=== PATIENT | female | born 1980 | race Caucasian/White ===

== ENCOUNTER 2017-12-24 21:30 | Emergency (ER) | payer MEDICAID ==
[2017-12-24 22:50] LABS: Absolute Lymphocytes (CBC) 2.3 K/uL (0.7-4.9); Absolute Monocytes 0.5 K/uL (0.1-1.3); Absolute Neutrophil 5.8 K/uL (1.8-8.0); Basophils % 0.5 % (0-1.3); Eosinophils % 1.3 % (0-4.4); Hematocrit 43.9 % (36.0-45.0); Lymphocytes % 25.8 % (15.3-44.8); MCH 27.8 pg (27.0-35.0); RBC Red Blood Cell Count 5.28 M/uL (3.86-4.86)
[2017-12-24 23:03] LABS: Albumin 4.6 g/dL (3.2-5.5); Bilirubin Direct 0.1 mg/dL (0-0.2); Bilirubin Total 0.6 mg/dL (0.3-1.2); Magnesium 1.9 mg/dL (1.8-2.5); Protein, Total 8.1 g/dL (6.0-8.3)
[2017-12-24] MEDS ORDERED: METOPROLOL TARTRATE 5 MG/5 ML INJ IV ONE (23:05)
[2017-12-24] MEDS ORDERED: NA CHLORIDE 0.9% 1,000 ML ONE (23:05)
[2017-12-24 23:16] LABS: Potassium 2.4 mEq/L (3.6-5.0)
[2017-12-24 23:44] LABS: Protime INR 1.13
[2017-12-24] MEDS ORDERED: POTASSIUM 25 MEQ EFFERV TAB ONE (23:46)
[2017-12-24] MEDS ORDERED: KCL 20 MEQ/100 mL IVPB 20 MEQ/100 ML BAG IV ONE (23:46)
--- NOTE | 2017-12-25 03:18 | EDPHYS ---
Physician Documentation [facility] Name: Jenni Draper Age: 37 yrs Sex: Female : 1980 Arrival Date: 12/24/2017 Time: 21:33 Bed 5 Private MD: ED Physician Sim Gusman HPI: 12/24 22:16 This 37 yrs old Female presents to ER via Wheelchair with complaints of Chest pkl Pain, Numbness. 22:16 The patient or guardian reports chest pain that is located primarily in the substernal pkl area. The pain radiates to the left arm. Associated signs and symptoms: Pertinent positives: diarrhea. The chest pain is described as stabbing. Historical: - Allergies: 21:41 Adhesives; la1 21:41 Aspirin; la1 21:41 Bactrim; la1 21:41 Ciprofloxacin; la1 21:41 Codeine; la1 21:41 Detrol; la1 21:41 Iodine; la1 21:41 Latex, Natural Rubber; la1 21:41 Morphine; la1 21:41 PENICILLINS; la1 21:41 Seroquel; la1 21:41 Sulfa (Sulfonamide Antibiotics); la1 21:41 tramadol; la1 21:41 gabapentin; la1 21:41 Clindamycin; la1 - PMHx: 21:41 Anxiety; Asthma; Back pain; Bronchitis; Hypertension; HYPOGLYCEMIA; Hypothyroidism; la1 internal heart monitor; Kidney stones; mitral valve prolapse; Myocardial infarction; Seizures; Upper Resp Infection; neuropathy; - Immunization history:: Adult Immunizations up to date. - Social history:: Smoking status: Patient/guardian denies using tobacco. ROS: 22:16 Eyes: Negative for injury, pain, redness, and discharge, ENT: Negative for injury, pkl pain, and discharge, Neck: Negative for injury, pain, and swelling. 22:16 Cardiovascular: Positive for chest pain. 22:16 Respiratory: Negative for cough, shortness of breath. 22:16 Abdomen/GI: Positive for diarrhea. 22:16 Back: Negative for acute changes. 22:16 : Negative for urinary symptoms. 22:16 MS/extremity: Negative for acute changes. 22:16 Skin: Negative for rash. 22:16 Neuro: Negative for altered mental status. Exam: 22:16 Head/Face: Normocephalic, atraumatic. Eyes: Pupils equal round and reactive to light, pkl extra-ocular motions intact. Lids and lashes normal. Conjunctiva and sclera are non-icteric and not injected. Cornea within normal limits. Periorbital areas with no swelling, redness, or edema. ENT: Nares patent. No nasal discharge, no septal abnormalities noted. Tympanic membranes are normal and external auditory canals are clear. Oropharynx with no redness, swelling, or masses, exudates, or evidence of obstruction, uvula midline. Mucous membranes moist. Neck: Trachea midline, no thyromegaly or masses palpated, and no cervical lymphadenopathy. Supple, full range of motion without nuchal rigidity, or vertebral point tenderness. No Meningismus. Chest/axilla: Normal chest wall appearance and motion. Nontender with no deformity. No lesions are appreciated. 22:16 Cardiovascular: Rate: tachycardic, actual rate is 126 bpm, Rhythm: regular. 22:16 ECG was reviewed by the Attending Physician. 22:16 Respiratory: the patient does not display signs of respiratory distress, Respirations: normal, Breath sounds: are clear throughout. 22:16 Abdomen/GI: Bowel sounds: normal, Palpation: abdomen is soft and non-tender. 22:16 Back: Exam negative for acute changes. 22:16 : Exam negative for acute changes. 22:16 Musculoskeletal/extremity: Exam is negative for acute changes. 22:16 Skin: Exam negative for rash. 22:16 Neuro: Orientation: is normal, Mentation: is normal, Cranial nerves: grossly normal, Motor: is normal. Vital Signs: 21:41 BP 115 / 77; Pulse 68; Resp 16; Temp 97.7; Pulse Ox 100% on R/A; Weight 51.26 kg; la1 Height 4 ft. 10 in. (147.32 cm); 23:11 BP 113 / 73; Pulse 103; Resp 16 S; Pulse Ox 98% on R/A; ea 0402 00:43 BP 100 / 73; Pulse 96; Resp 18; Pulse Ox 100% on R/A; ea 01:45 BP 103 / 74; Pulse 98; Resp 18 S; Pulse Ox 99% on R/A; ea 02:00 BP 101 / 79; Pulse 99; Resp 18; Pulse Ox 99% on R/A; ea 03:45 BP 115 / 78; Pulse 98; Resp 18; Temp 98(O); Pulse Ox 100% on R/A; ea 12/24 21:41 Body Mass Index 23.62 (51.26 kg, 147.32 cm) la1 MDM: 12/24 21:58 Patient medically screened. [facility] 12/25 03:16 Data reviewed: vital signs, nurses notes, lab test result(s), EKG, radiologic studies, pkl plain films. 03:19 ED course: Patient feeling better. Advised to follow with Dr. Soto ( patient's [facility] [employer] [facility] ) in 1 to 2 days for further evaluations. 12/24 22:11 Order name: Basic Metabolic Panel; Complete Time: 23:17 [facility] 12/24 22:11 Order name: BNP; Complete Time: 23:14 [facility] 12/24 22:11 Order name: CBC with Diff; Complete Time: 23:14 [facility] 12/24 22:11 Order name: Ckmb; Complete Time: 23:17 [facility] 12/24 22:11 Order name: CPK; Complete Time: 23:17 [facility] 12/24 22:11 Order name: LFT's; Complete Time: 23:17 [facility] 12/24 22:11 Order name: Magnesium; Complete Time: 23:17 [facility] 12/24 22:11 Order name: PT-INR; Complete Time: 00:10 [facility] 12/24 22:11 Order name: Ptt, Activated; Complete Time: 00:10 [facility] 12/24 22:11 Order name: Troponin (emerg Dept Use Only); Complete Time: 23:14 [facility] 12/24 22:11 Order name: XRAY Chest (1 view) [facility] 12/25 02:14 Order name: Troponin (emerg Dept Use Only); Complete Time: 03:13 12/25 02:15 Order name: Potassium; Complete Time: 03:13 ea 12/24 22:11 Order name: EKG; Complete Time: 22:12 [facility] 12/24 22:11 Order name: Cardiac monitoring; Complete Time: :44 [facility] 12/24 22:11 Order name: EKG - Nurse/Tech; Complete Time: :44 [facility] 12/24 22:11 Order name: IV Saline Lock; Complete Time: :44 [facility] 12/24 22:11 Order name: Labs collected and sent; Complete Time: 22:44 [facility] 12/24 22:11 Order name: O2 Per Protocol; Complete Time: :44 [facility] 12/24 22:11 Order name: O2 Sat Monitoring; Complete Time: :44 [facility] 12/25 02:15 Order name: EKG - Nurse/Tech; Complete Time: 02:59 ea 12/25 02:15 Order name: EKG; Complete Time: 02:16 ea Administered Medications: 12/24 22:58 Drug: NS 0.9% 1000 ml Route: IV; Rate: 100 ml/hr; Site: left antecubital; ea 12/25 03:25 Follow up: Response: No adverse reaction; IV Intake: 1000ml ea 03:26 Follow up: Response: No adverse reaction ea 03:34 Follow up: Response: No adverse reaction; IV Status: Completed infusion ea 12/24 23:33 Drug: Potassium Chloride 20 mEq Route: IV; Rate: calculated rate; Site: left ea antecubital; 12/25 03:00 Follow up: Response: No adverse reaction; IV Status: Completed infusion ea 00:01 Drug: K-Lyte Effervescent Tablet 50 mEq Route: PO; ea 00:42 Follow up: Response: No adverse reaction ea 03:33 Drug: K-Dur 40 mEq Route: PO; ea 03:48 Follow up: Response: Medication administered at discharge. ea 03:34 Not Given (Hemodynamic Parameters): Lopressor 5 mg IVP once; Hold for SBP <100 or HR ea <60. Disposition: 12/25/17 03:17 Discharged to Home. Impression: Chest pain. Hypokalemia. - Condition is Stable. - Prescriptions for Potassium Chloride 10 mEq Oral Tablet - take 1 tablet by ORAL route every 12 hours; 30 tablet. - Medication Reconciliation Form, Thank You Letter, Antibiotic Education, Prescription Opioid Use form. - Follow up: Private Physician; When: 1 - 2 days; Reason: Re-evaluation by your physician. - Problem is new. - Symptoms have improved. Signatures: Dispatcher [employer] Ladonna Liu rg2 Sim Gusman MD MD pkl Attema, Lee RN RN la1 Cindy Avitia RN RN ea
--- NOTE | 2017-12-25 03:18 | ER ---
Nurse's Notes [facility] Name: Jenni Draper Age: 37 yrs Sex: Female : 1980 Arrival Date: 12/24/2017 Time: 21:33 Bed 5 Private MD: Diagnosis: Chest pain. Hypokalemia Presentation: 12/24 21:39 Presenting complaint: Patient states: I have been having chest pain that feels like a la1 stabbing that goes down my left arm. Pt also reports diarrhea. Transition of care: patient was not received from another setting of care. Onset of symptoms was December 24, 2017. Care prior to arrival: None. 21:39 Method Of Arrival: Wheelchair la1 21:39 Acuity: LYUBOV 3 la1 Historical: - Allergies: 21:41 Adhesives; la1 21:41 Aspirin; la1 21:41 Bactrim; la1 21:41 Ciprofloxacin; la1 21:41 Codeine; la1 21:41 Detrol; la1 21:41 Iodine; la1 21:41 Latex, Natural Rubber; la1 21:41 Morphine; la1 21:41 PENICILLINS; la1 21:41 Seroquel; la1 21:41 Sulfa (Sulfonamide Antibiotics); la1 21:41 tramadol; la1 21:41 gabapentin; la1 21:41 Clindamycin; la1 - PMHx: 21:41 Anxiety; Asthma; Back pain; Bronchitis; Hypertension; HYPOGLYCEMIA; Hypothyroidism; la1 internal heart monitor; Kidney stones; mitral valve prolapse; Myocardial infarction; Seizures; Upper Resp Infection; neuropathy; - Immunization history:: Adult Immunizations up to date. - Social history:: Smoking status: Patient/guardian denies using tobacco. Screenin:00 Abuse screen: Denies threats or abuse. Nutritional screening: No deficits noted. ea Tuberculosis screening: No symptoms or risk factors identified. Fall Risk None identified. Assessment: 22:50 General: Appears uncomfortable, Behavior is cooperative, appropriate for age. Pain: ea Complains of pain in mid-sternal area Pain radiates to left arm Quality of pain is described as stabbing. Neuro: Level of Consciousness is awake, alert, obeys commands, Oriented to person, place, time, situation. Cardiovascular: Heart tones present Patient's skin is warm and dry. Respiratory: Airway is patent Respiratory effort is even, unlabored, Respiratory pattern is regular, symmetrical. Derm:. Derm: Skin is dry, Skin is pale, Skin temperature is warm. 23:56 Reassessment: Patient and/or family updated on plan of care and expected duration. Pain ea level reassessed. Patient is alert, oriented x 3, equal unlabored respirations, skin warm/dry/pink. 12/25 00:45 Reassessment: Patient and/or family updated on plan of care and expected duration. Pain ea level reassessed. Patient is alert, oriented x 3, equal unlabored respirations, skin warm/dry/pink. 01:00 Reassessment: Patient and/or family updated on plan of care and expected duration. Pain ea level reassessed. Patient is alert, oriented x 3, equal unlabored respirations, skin warm/dry/pink. 02:48 Reassessment: Patient and/or family updated on plan of care and expected duration. Pain ea level reassessed. Patient is alert, oriented x 3, equal unlabored respirations, skin warm/dry/pink. 03:43 Reassessment: Patient and/or family updated on plan of care and expected duration. Pain ea level reassessed. Patient is alert, oriented x 3, equal unlabored respirations, skin warm/dry/pink. Discharge instructions given to patient, verbalized the understanding of instructions. Vital Signs: 12/24 21:41 BP 115 / 77; Pulse 68; Resp 16; Temp 97.7; Pulse Ox 100% on R/A; Weight 51.26 kg; la1 Height 4 ft. 10 in. (147.32 cm); 23:11 BP 113 / 73; Pulse 103; Resp 16 S; Pulse Ox 98% on R/A; ea 12/25 00:43 BP 100 / 73; Pulse 96; Resp 18; Pulse Ox 100% on R/A; ea 01:45 BP 103 / 74; Pulse 98; Resp 18 S; Pulse Ox 99% on R/A; ea 02:00 BP 101 / 79; Pulse 99; Resp 18; Pulse Ox 99% on R/A; ea 03:45 BP 115 / 78; Pulse 98; Resp 18; Temp 98(O); Pulse Ox 100% on R/A; ea 12/24 21:41 Body Mass Index 23.62 (51.26 kg, 147.32 cm) la1 ED Course: 12/24 21:33 Patient arrived in ED. as 21:40 Triage completed. la1 21:41 Arm band placed on left wrist. la1 21:58 Sim Gusman MD is Attending Physician. pkl 22:43 Inserted saline lock: 22 gauge in left forearm, using aseptic technique. bb 22:47 XRAY Chest (1 view) In Process Unspecified. EDMS 23:00 Cindy Avitia, LAUREL is Primary Nurse. ea 23:01 Patient has correct armband on for positive identification. Placed in gown. Bed in low ea position. Call light in reach. Side rails up X2. 23:10 flexible shaft winder on. Pulse ox on. NIBP on. ea 23:10 Patient maintains SpO2 saturation greater than 95% on room air. ea 12/25 03:44 No provider procedures requiring assistance completed. IV discontinued, intact, ea bleeding controlled, No redness/swelling at site. Pressure dressing applied. Administered Medications: 12/24 22:58 Drug: NS 0.9% 1000 ml Route: IV; Rate: 100 ml/hr; Site: left antecubital; ea 12/25 03:25 Follow up: Response: No adverse reaction; IV Intake: 1000ml ea 03:26 Follow up: Response: No adverse reaction ea 03:34 Follow up: Response: No adverse reaction; IV Status: Completed infusion ea 12/24 23:33 Drug: Potassium Chloride 20 mEq Route: IV; Rate: calculated rate; Site: left ea antecubital; 12/25 03:00 Follow up: Response: No adverse reaction; IV Status: Completed infusion ea 00:01 Drug: K-Lyte Effervescent Tablet 50 mEq Route: PO; ea 00:42 Follow up: Response: No adverse reaction ea 03:33 Drug: K-Dur 40 mEq Route: PO; ea 03:48 Follow up: Response: Medication administered at discharge. ea 03:34 Not Given (Hemodynamic Parameters): Lopressor 5 mg IVP once; Hold for SBP <100 or HR ea <60. Intake: 03:25 IV: 1000ml; Total: 1000ml. ea Outcome: 03:17 Discharge ordered by . pkl 03:44 Discharged to ea 03:44 Condition: improved 03:44 Discharge instructions given to patient, Instructed on discharge instructions, follow up and referral plans. medication usage, Demonstrated understanding of instructions, follow-up care, medications, Prescriptions given X 1. 03:47 Patient left the ED. ea Signatures: Dispatcher [employer] EDMS Sim Gusman MD MD pkl Martinez, Amelia as Ballard, Brenda, RN RN Alexandre Petersen RN RN la1 Antunez, Elena, RN RN ea
[2017-12-25] MEDS ORDERED: POTASSIUM CL SA 10 MEQ TAB PO ONE (03:51)
--- NOTE | 2017-12-25 07:05 | EKG ---
Test Date: 2017-12-25 Test Time: 02:26:35 Window/Distribution Clerk: JOSÉ MANUEL MEASUREMENT RESULTS: Intervals: Rate: 105 MO: 140 QRSD: 86 QT: 356 QTc: 470 [place]: P: 70 MO: 140 QRS: 47 T: 57 INTERPRETIVE STATEMENTS: Sinus tachycardia Otherwise normal ECG Compared to ECG 12/24/2017 21:45:59 Ventricular premature complex(es) no longer present ST (T wave) deviation no longer present Electronically Signed On 12-25-17 07:04:35 CDT by Mack Ulrich
--- NOTE | 2017-12-25 07:05 | EKG ---
Test Date: 2017-12-24 Test Time: 21:45:59 Lacquer Spray Booth Operator: LA MEASUREMENT RESULTS: Intervals: Rate: 126 UT: 140 QRSD: 84 QT: 332 QTc: 480 [place]: P: 68 UT: 140 QRS: 62 T: 56 INTERPRETIVE STATEMENTS: Sinus tachycardia with frequent premature ventricular complexes in a pattern of bigeminy Nonspecific ST and T wave abnormality Abnormal ECG Compared to ECG 07/13/2017 22:48:01 Ventricular premature complex(es) now present ST (T wave) deviation now present Electronically Signed On 12-25-17 07:05:10 CDT by Mack Ulrich
--- NOTE | 2017-12-25 07:33 | RAD REPORT ---
EXAM DESCRIPTION: RAD - Chest Single View - 12/24/2017 10:52 pm CLINICAL HISTORY: Chest pain radiating to the left arm COMPARISON: June 2017 TECHNIQUE: AP portable chest image was obtained 2239 hours . FINDINGS: Lungs are clear. Heart and vasculature are normal. No measurable pleural effusion and no p neumothorax. No gross bony abnormality seen. No acute aortic findings. Pacemaker has been placed thro ugh a right subclavian approach. This is new from the prior examination. IMPRESSION: No acute cardiopulmonary process. Pacemaker has been placed since prior imaging.
== END 2017-12-25 03:47 | disposition home or self-care (01) ==
LOC: ER 21:30
DX: E87.6 Hypokalemia (principal); I10 Essential (primary) hypertension; I25.2 Old myocardial infarction; Z88.0 Allergy status to penicillin; Z88.1 Allergy status to other antibiotic agents; Z88.2 Allergy status to sulfonamides; Z88.3 Allergy status to other anti-infective agents; Z88.5 Allergy status to narcotic agent; Z88.6 Allergy status to analgesic agent; Z88.8 Allergy status to other drugs, medicaments and biological substances; Z91.040 Latex allergy status
CPT/HCPCS: 36415; 71045; 80048; 80076; 82550; 82553; 83735; 83880; 84132; 84484; 85025; 85610; 85730; 93005; 96361; 96365; 96366; 99285; J7030

== ENCOUNTER 2018-05-18 22:34 | Emergency (ER) | payer MEDICAID ==
--- OUTSIDE RECORDS SUMMARY | 2018-05-18 22:37 | XMS REPORT ---
:1980 [facility] [address] Ervin [address] [place] [id number] Care Team Providers Name Role Phone MILTONTAMARA CAPELLAN Primary Care Provider Unavailable LYLY SUE Unavailable Unavailable Problems This patient has no known problems. Allergies, Adverse Reactions, Alerts This patient has no known allergies or adverse reactions. Medications This patient has no known medications. Encounters Start End Encounter Admission Attending Care Care Encounter Date/Time Date/Time Type Type Clinicians Facility Department ID 2017-09-06 2017-09-08 Inpatient [facility] [id number] 10:12:00 02:32:00 LYLY Results Test Description Test Time Test Comments Text Results Atomic Results Result Comments AFB Culture and Smear 2017-11-01 13:24:00 Specimen/Source: Wound/PACEMAKERCollected: 09/05/2017 19:45 Status: Final Last Updated: 11/01/2017 13:24 [id number] (Final) (Final) 09/07/17 No acid fast bacill seen on direct smear Culture Result (Final) (Final) 11/01/17 No growth of AFB at six (6) weeks Fungus Culture with 2017-10-22 12:12:00 Specimen/Source: Stain Wound/PACEMAKERCollected: 09/05/2017 19:45 Status: Final Last Updated: 10/22/2017 12:12 Fungal Smear Result (Final) (Final) 09/06/17 No yeast or hyphae seen Culture Result (Final) (Final) 10/22/17 No fungus isolated at 6 weeks Culture, Blood Routine 2017-09-10 08:23:00 Specimen: BloodCollected: 2016 20:30 Status: Final Last Updated: 09/10/2017 08:23 Culture Result (Final) (Final) No Growth After 5 Days Culture, Blood Routine 2017-09-10 08:23:00 Specimen: BloodCollected: 2016 20:15 Status: Final Last Updated: 09/10/2017 08:23 Culture Result (Final) (Final) No Growth After 5 Days Culture, Wound 2017-09-08 08:52:00 Specimen: WoundCollected: 09/05/2017 Surgical 19:45 Status: Final Last Updated: 09/08/2017 08:52 Gram Stain (Final) (Final) 09/06/17 No organisms seen, Few WBC's Culture Result (Final) (Final) 09/08/17 Anaerobic culture:No anaerobes isolated at 3 days Isolate (Final) (Final) 09/07/17 Few Staph-coag positive Isolate Staph-coag positive JERMAINE (mcg/ml) Amoxicillin/Clav (AUG)<=4/2 Susceptible Ampicillin (AM) >8 Resistant Ampicillin/Sulb (A/S) <=8/4 Susceptible Cefazolin (CFZ) <=4 Susceptible Ceftriaxone (DIRECTOR CHILD) <=4 Susceptible Chloramphenicol (C) <=8 Susceptible Ciprofloxacin (CP) <=1 Susceptible Clindamycin (CM) 0.5 Susceptible Erythromycin (E) <=0.25 Susceptible Gentamicin (GM) <=1 Susceptible Imipenem (IMP) <=4 Susceptible Levofloxacin (LEV) <=0.5 Susceptible Linezolid (LNZ) 4 Susceptible Oxacillin (OX1) 0.5 Susceptible Penicillin (P) >8 Resistant Rifampin (RA) <=1 Susceptible Tetracycline (TE) <=1 Susceptible Trimethoprim/Sulfa <=0.5/9.Susceptible (SXT) 5 Vancomycin (VA) 2 Susceptible Renal Panel 2017-09-07 08:51:00 Test Item Value Reference Range Comments Sodium (test code=NA) 139 mmol/L 135-145 Potassium (test code=K) 4.5 mmol/L 3.5-5.1 Chloride (test code=CL) 103 mmol/L 98-105 Carbon Dioxide (test 20 mmol/L 22-29 code=CO2) Glucose (test code=GLU) 101 mg/dL 70-115 Blood Urea Nitrogen (test 5 mg/dL 6-20 code=BUN) Creatinine (test 0.6 mg/dL 0.5-0.9 code=CREAT) Calcium (test code=CA) 8.8 mg/dL 8.3-10.5 Albumin (test code=ALB) 3.6 g/dL 3.5-5.2 Phosphorus (test code=PO4) 3.4 mg/dL 2.70-4.50 BUN/Creatinine Ratio (test 8.3 code=BCRATIO) Anion Gap (test code=AGAP) 16 mmol/L 7-16 Estimated GFR (test >60 mL/min/1.73m2 eGFR (estimated Glomerular code=GFR) Filtration Rate) is an estimated value,calculated from the patient's serum creatinine using the MDRD equation.It is NOT the patient's actual GFR. The eGFR provides a more clinicallyuseful measure of kidney disease than serum creatinine alone.This calculation takes sex and race into account, if the informationis provided. If the race is not provided, and the patient is[place], multiply by 1.212. If sex is not provided, and thepatient is female, multiply by 0.742. Results for patients <18 years ofage have not been validated by the MDRD study and should be interpretedwith caution.eGFR Result Interpretation:eGFR > or=60 is in the Normal RangeeGFR < 60 may mean kidney diseaseeGFR < 15 may mean kidney failureRanges recommended by the National Kidney Foundation,http://nkdep.nih.go v CBC with [id number] 07:39:00 Test Item Value Reference Range Comments WBC (test code=WBC) 6.2 K/cumm 4.4-10.5 RBC (test code=RBC) 4.15 M/cumm 3.75-5.20 Hemoglobin (test code=HGB) 12.2 gm/dL 12.2-14.8 Hematocrit (test code=HCT) 36.2 % 36.5-44.4 MCV (test code=MCV) 87.3 fL 80-100 MCH (test code=MCH) 29.5 pg 27.0-32.5 MCHC (test code=MCHC) 33.8 g/dL 32.0-37.5 RDW (test code=RDW) 12.7 % 11.5-14.5 Platelet Count (test code=PLTCT) 244 K/cumm 140-440 MPV (test code=MPV) 9.7 fL Diff Method (test code=DIFFM) Auto Neutrophil (test code=NEUT) 62.9 % 36-70 Lymphocyte (test code=LYMPH) 27.1 % 12-44 Monocyte (test code=MONO) 5.0 % 0-11 Eosinophil (test code=EOS) 4.6 % 0-7 Basophil (test code=BASO) 0.6 % 0-2 Neutro Abs (test code=ANEUT) 3.9 K/cumm 1.6-7.4 Lymph Abs (test code=ALYMPH) 1.7 K/cumm 0.5-4.6 Surry Abs (test code=AMONO) 0.3 K/cumm 0.0-1.2 Eos Abs (test code=AEOS) 0.29 K/cumm 0.00-0.74 Baso Abs (test code=ABASO) 0.0 K/cumm 0.00-0.21 Vancomycin, [id number] 12:33:00 Test Item Value Reference Range Comments Vanco, Trou (test code=VANTR) 7.9 ug/mL 10.0-20.0 Magnesium, [id number] 06:37:00 Test Item Value Reference Range Comments Magnesium (test code=MG) 2.4 mg/dL 1.7-2.5 Renal [id number] 06:29:00 Test Item Value Reference Range Comments Sodium (test code=NA) 137 mmol/L 135-145 Potassium (test code=K) 3.9 mmol/L 3.5-5.1 Chloride (test code=CL) 99 mmol/L 98-105 Carbon Dioxide (test 28 mmol/L 22-29 code=CO2) Glucose (test code=GLU) 114 mg/dL 70-115 Blood Urea Nitrogen 13 mg/dL 6-20 (test code=BUN) Creatinine (test 0.6 mg/dL 0.5-0.9 code=CREAT) Calcium (test code=CA) 8.8 mg/dL 8.3-10.5 Albumin (test code=ALB) 3.6 g/dL 3.5-5.2 Phosphorus (test 4.2 mg/dL 2.70-4.50 code=PO4) BUN/Creatinine Ratio 21.7 (test code=BCRATIO) Anion Gap (test 10 mmol/L 7-16 code=AGAP) Estimated GFR (test >60 mL/min/1.73m2 eGFR (estimated Glomerular code=GFR) Filtration Rate) is an estimated value,calculated from the patient's serum creatinine using the MDRD equation.It is NOT the patient's actual GFR. The eGFR provides a more clinicallyuseful measure of kidney disease than serum creatinine alone.This calculation takes sex and race into account, if the informationis provided. If the race is not provided, and the patient is[place], multiply by 1.212. If sex is not provided, and thepatient is female, multiply by 0.742. Results for patients <18 years ofage have not been validated by the MDRD study and should be interpretedwith caution.eGFR Result Interpretation:eGFR > or=60 is in the Normal RangeeGFR < 60 may mean kidney diseaseeGFR < 15 may mean kidney failureRanges recommended by the National Kidney Foundation,http://nkdep.nih .gov BHCG, Serum, [id number] 06:26:00 Test Item Value Reference Range Comments Preg Qual [Se] (test code=BSHCG) Negative Negative CBC with [id number] 06:24:00 Test Item Value Reference Range Comments WBC (test code=WBC) 5.7 K/cumm 4.4-10.5 RBC (test code=RBC) 4.10 M/cumm 3.75-5.20 Hemoglobin (test code=HGB) 11.6 gm/dL 12.2-14.8 Hematocrit (test code=HCT) 35.8 % 36.5-44.4 MCV (test code=MCV) 87.5 fL 80-100 MCH (test code=MCH) 28.4 pg 27.0-32.5 MCHC (test code=MCHC) 32.5 g/dL 32.0-37.5 RDW (test code=RDW) 12.4 % 11.5-14.5 Platelet Count (test code=PLTCT) 241 K/cumm 140-440 MPV (test code=MPV) 7.0 fL Diff Method (test code=DIFFM) Auto Neutrophil (test code=NEUT) 63.2 % 36-70 Lymphocyte (test code=LYMPH) 27.0 % 12-44 Monocyte (test code=MONO) 6.3 % 0-11 Eosinophil (test code=EOS) 3.1 % 0-7 Basophil (test code=BASO) 0.3 % 0-2 Neutro Abs (test code=ANEUT) 3.6 K/cumm 1.6-7.4 Lymph Abs (test code=ALYMPH) 1.6 K/cumm 0.5-4.6 Surry Abs (test code=AMONO) 0.4 K/cumm 0.0-1.2 Eos Abs (test code=AEOS) 0.18 K/cumm 0.00-0.74 Baso Abs (test code=ABASO) 0.0 K/cumm 0.00-0.21 XR CHEST 1 [id number] 16:29:55XR CHEST 1 VIEWLOCATION: [id number]: None.INDICATION: REVIEW PICC LINE PLACEMENTDISCUSSION:AP chest and AP right arm radiographs were submitted for interpretation.Right PICC line terminates over theright axillary region.Dual lead cardiac device is seen over the left chest wall.A surgical clip is seen over the right upper abdomen.The lungs are grossly clear.There is no evidence for pneumothorax.The cardiac silhouette is within normal limits. There are no acute osseous abnormalities.IMPRESSION:1. Right PICC line terminates over the right axillary region.2. No acute cardiopulmonary abnormalities.Free T4 (Free Thyroxine)2017-09-05 05:59:00 Test Item Value Reference Range Comments T4, Free (test code=FT4) 1.15 ng/dL 0.930-1.700 Thyroid Stimulating Hormone (TSH)2017-09-05 05:59:00 Test Item Value Reference Range Comments TSH (test code=TSH) 3.44 mIU/mL 0.270-4.200 Lipid [id number] 05:47:00 Test Item Value Reference Range Comments Cholesterol (test 160 mg/dL 0-200 code=CHOL) Triglycerides (test 126 mg/dL 9-200 code=TRIG) HDL (test code=HDL) 35 mg/dL 50-60 Chol/HDL (test 4.6 Ratio 0.0-4.4 code=CHOLPHDL) LDL, Calculated (test 100 0-130 (NOTE)RISK OF HEART code=LDLC) DISEASEPublished by [place] Citizen Heart AssociationAnalyte Optimal Boderline Increased RiskCHOL <200 200-239 >240TRIG <150 150-199 >200HDL Male: >60 <40HDL Female: >60 <50LDL <100 130-159 >160LDL NEAR OPTIMAL IS 100-129 VLDL (test code=VLDL) 25 mg/dL 5-40 LDL/HDL (test code=LDLPHDL) 3 Basic Metabolic [id number] 05:47:00 Test Item Value Reference Range Comments Sodium (test code=NA) 139 mmol/L 135-145 Potassium (test code=K) 4.1 mmol/L 3.5-5.1 Chloride (test code=CL) 102 mmol/L 98-105 Carbon Dioxide (test 27 mmol/L 22-29 code=CO2) Glucose (test code=GLU) 103 mg/dL 70-115 Blood Urea Nitrogen 9 mg/dL 6-20 (test code=BUN) Creatinine (test 0.6 mg/dL 0.5-0.9 code=CREAT) Calcium (test code=CA) 9.2 mg/dL 8.3-10.5 BUN/Creatinine Ratio 15.0 (test code=BCRATIO) Anion Gap (test 10 mmol/L 7-16 code=AGAP) Estimated GFR (test >60 mL/min/1.73m2 eGFR (estimated Glomerular code=GFR) Filtration Rate) is an estimated value,calculated from the patient's serum creatinine using the MDRD equation.It is NOT the patient's actual GFR. The eGFR provides a more clinicallyuseful measure of kidney disease than serum creatinine alone.This calculation takes sex and race into account, if the informationis provided. If the race is not provided, and the patient is[place], multiply by 1.212. If sex is not provided, and thepatient is female, multiply by 0.742. Results for patients <18 years ofage have not been validated by the MDRD study and should be interpretedwith caution.eGFR Result Interpretation:eGFR > or=60 is in the Normal RangeeGFR < 60 may mean kidney diseaseeGFR < 15 may mean kidney failureRanges recommended by the National Kidney Foundation,http://nkdep.nih .gov Magnesium, [id number] 05:47:00 Test Item Value Reference Range Comments Magnesium (test code=MG) 2.3 mg/dL 1.7-2.5 CBC with [id number] 05:36:00 Test Item Value Reference Range Comments WBC (test code=WBC) 6.4 K/cumm 4.4-10.5 RBC (test code=RBC) 4.56 M/cumm 3.75-5.20 Hemoglobin (test code=HGB) 13.4 gm/dL 12.2-14.8 Hematocrit (test code=HCT) 39.0 % 36.5-44.4 MCV (test code=MCV) 85.5 fL 80-100 MCH (test code=MCH) 29.3 pg 27.0-32.5 MCHC (test code=MCHC) 34.3 g/dL 32.0-37.5 RDW (test code=RDW) 12.6 % 11.5-14.5 Platelet Count (test code=PLTCT) 252 K/cumm 140-440 MPV (test code=MPV) 9.7 fL Diff Method (test code=DIFFM) Auto Neutrophil (test code=NEUT) 56.6 % 36-70 Lymphocyte (test code=LYMPH) 33.8 % 12-44 Monocyte (test code=MONO) 5.3 % 0-11 Eosinophil (test code=EOS) 3.7 % 0-7 Basophil (test code=BASO) 0.6 % 0-2 Neutro Abs (test code=ANEUT) 3.7 K/cumm 1.6-7.4 Lymph Abs (test code=ALYMPH) 2.2 K/cumm 0.5-4.6 Surry Abs (test code=AMONO) 0.3 K/cumm 0.0-1.2 Eos Abs (test code=AEOS) 0.24 K/cumm 0.00-0.74 Baso Abs (test code=ABASO) 0.0 K/cumm 0.00-0.21 Partial Thromboplastin [id number] 21:26:00 Test Item Value Reference Range Comments aPTT (test code=PTT) 29.00 seconds 24.39-37.25 Prothrombin [id number] 21:26:00 Test Item Value Reference Range Comments PT (test code=PT) 10.70 seconds 9.78-13.35 INR (test code=INR) 0.95 Ratio 0.6-1.2 Comprehensive Metabolic [id number] 21:23:00 Test Item Value Reference Range Comments Sodium (test code=NA) 138 mmol/L 135-145 Potassium (test code=K) 3.7 mmol/L 3.5-5.1 Chloride (test code=CL) 99 mmol/L 98-105 Carbon Dioxide (test 27 mmol/L 22-29 code=CO2) Glucose (test code=GLU) 106 mg/dL 70-115 Blood Urea Nitrogen 7 mg/dL 6-20 (test code=BUN) Creatinine (test 0.6 mg/dL 0.5-0.9 code=CREAT) Calcium (test code=CA) 9.2 mg/dL 8.3-10.5 Prot Total (test 6.9 g/dL 6.4-8.3 code=TP) Albumin (test code=ALB) 4.1 g/dL 3.5-5.2 A/G Ratio (test 1.5 Ratio code=AGRATIO) Globulin (test 2.8 2.9-3.1 code=GLOB) Bili Total (test <0.1 mg/dL 0.1-0.9 code=TBIL) Alk Phos (test 102 U/L 35-104 code=APHOS) AST (test code=AST) 12 U/L 1-32 ALT (test code=ALT) 10 U/L 1-33 BUN/Creatinine Ratio 11.7 (test code=BCRATIO) Anion Gap (test 12 mmol/L 7-16 code=AGAP) Estimated GFR (test >60 mL/min/1.73m2 eGFR (estimated Glomerular code=GFR) Filtration Rate) is an estimated value,calculated from the patient's serum creatinine using the MDRD equation.It is NOT the patient's actual GFR. The eGFR provides a more clinicallyuseful measure of kidney disease than serum creatinine alone.This calculation takes sex and race into account, if the informationis provided. If the race is not provided, and the patient is[place], multiply by 1.212. If sex is not provided, and thepatient is female, multiply by 0.742. Results for patients <18 years ofage have not been validated by the MDRD study and should be interpretedwith caution.eGFR Result Interpretation:eGFR > or=60 is in the Normal RangeeGFR < 60 may mean kidney diseaseeGFR < 15 may mean kidney failureRanges recommended by the National Kidney Foundation,http://nkdep.nih .gov CBC with [id number] 21:16:00 Test Item Value Reference Range Comments WBC (test code=WBC) 8.3 K/cumm 4.4-10.5 RBC (test code=RBC) 4.50 M/cumm 3.75-5.20 Hemoglobin (test code=HGB) 13.2 gm/dL 12.2-14.8 Hematocrit (test code=HCT) 37.9 % 36.5-44.4 MCV (test code=MCV) 84.4 fL 80-100 MCH (test code=MCH) 29.4 pg 27.0-32.5 MCHC (test code=MCHC) 34.8 g/dL 32.0-37.5 RDW (test code=RDW) 12.6 % 11.5-14.5 Platelet Count (test code=PLTCT) 265 K/cumm 140-440 MPV (test code=MPV) 9.7 fL Diff Method (test code=DIFFM) Auto Neutrophil (test code=NEUT) 67.0 % 36-70 Lymphocyte (test code=LYMPH) 25.7 % 12-44 Monocyte (test code=MONO) 4.7 % 0-11 Eosinophil (test code=EOS) 2.0 % 0-7 Basophil (test code=BASO) 0.6 % 0-2 Neutro Abs (test code=ANEUT) 5.6 K/cumm 1.6-7.4 Lymph Abs (test code=ALYMPH) 2.2 K/cumm 0.5-4.6 Surry Abs (test code=AMONO) 0.4 K/cumm 0.0-1.2 Eos Abs (test code=AEOS) 0.17 K/cumm 0.00-0.74 Baso Abs (test code=ABASO) 0.1 K/cumm 0.00-0.21
[2018-05-19] MEDS ORDERED: HYDROMORPHONE HCL 1 MG/ML INJ ONE
[2018-05-19] MEDS ORDERED: FAMOTIDINE 20 MG/2 ML VIAL IV ONE
[2018-05-19] MEDS ORDERED: NA CHLORIDE 0.9% 1,000 ML ONE
[2018-05-19 00:27] LABS: Absolute Lymphocytes (CBC) 1.9 K/uL (0.7-4.9); Absolute Monocytes 0.4 K/uL (0.1-1.3); Absolute Neutrophil 3.6 K/uL (1.8-8.0); Basophils % 1.1 % (0-1.3); Hematocrit 38.7 % (36.0-45.0); Lymphocytes % 30.7 % (15.3-44.8); MCH 29.2 pg (27.0-35.0); MCV 84.9 fL (80-100); MPV 9.6 fL (7.6-11.3); Monocytes % 6.9 % (3.3-12.3); RBC Red Blood Cell Count 4.56 M/uL (3.86-4.86)
[2018-05-19 00:39] LABS: ALT/SGPT 24 U/L (12-78); AST/SGOT 28 U/L (15-37); Albumin 3.8 g/dL (3.4-5.0); Alkaline Phosphatase 126 U/L (45-117); Amylase Level 42 U/L (25-115); BUN Blood Urea Nitrogen 19 mg/dL (7-18); Bicarbonate 28 mmol/L (21-32); Bilirubin Direct < 0.1 mg/dL (0-0.2); Bilirubin Total 0.2 mg/dL (0.2-1.0); Glucose Level 113 mg/dL (74-106); Lipase 124 U/L (73-393); Potassium 3.6 mmol/L (3.5-5.1); Protein, Total 7.8 g/dL (6.4-8.2); Sodium Level 143 mmol/L (136-145)
[2018-05-19] MEDS ORDERED: PANTOPRAZOLE 40 MG INJ ONE (00:55)
[2018-05-19] MEDS ORDERED: ONDANSETRON 4 MG/2 ML VIAL ONE ×2 (01:05)
[2018-05-19 01:34] LABS: Urine Blood NEGATIVE (NEG); Urine Glucose NEGATIVE (NEG); Urine Protein NEGATIVE (NEG); Urine Specific Gravity >1.030 (1.005-1.030); Urine pH 5.5 (5.0-7.0)
[2018-05-19] MEDS ORDERED: PROMETHAZINE 25 MG/ML VIAL ONE (01:39)
[2018-05-19] MEDS ORDERED: NA CHLORIDE 0.9% 100 ML IV ONE (01:40)
[2018-05-19 01:41] LABS: Calcium Oxalate Crystals- Ur MANY (NONE SEEN); Urine Bacteria <20 /HPF (<20); Urine Culture Reflex Order NOT NEEDED; Urine Mucus 2+ /HPF (NONE SEEN); Urine RBC NONE SEEN /HPF (NONE SEEN)
--- NOTE | 2018-05-19 02:23 | EDPHYS ---
Physician Documentation [facility] Name: Jenni Draper Age: 37 yrs Sex: Female : 1980 Arrival Date: 05/18/2018 Time: 22:39 Bed 26 Private MD: ED Physician Caio Aceves HPI: 05/18 23:48 This 37 yrs old Female presents to ER via Ambulatory with complaints of taty Abdominal Pain. 23:48 The patient presents with abdominal pain in the epigastric area, in the upper abdomen. taty Onset: The symptoms/episode began/occurred 2 day(s) ago. The patient presents to the emergency department with nausea, vomiting, abdominal pain, of the epigastric area, right upper quadrant and left upper quadrant. Onset: The symptoms/episode began/occurred 2 day(s) ago. Possible causes: unknown. The symptoms are aggravated by pressure, food , The symptoms are alleviated by nothing. remaining still. The symptoms do not radiate. Modifying factors: The symptoms are alleviated by nothing, the symptoms are aggravated by emotional upset, food, movement, pressure. 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 - Hysterectomy tl2 Historical: - Allergies: 23:02 Adhesives; tl2 23:02 Aspirin; tl2 23:02 Bactrim; tl2 23:02 Ciprofloxacin; tl2 23:02 Clindamycin; tl2 23:02 Codeine; tl2 23:02 Detrol; tl2 23:02 GABAPENTIN; tl2 23:02 Iodine; tl2 23:02 Latex, Natural Rubber; tl2 23:02 Morphine; tl2 23:02 PENICILLINS; tl2 23:02 Seroquel; tl2 23:02 Sulfa (Sulfonamide Antibiotics); tl2 23:02 tramadol; tl2 23:02 Benadryl; tl2 - Home Meds: 23:02 Abilify 10 mg Oral tab 1 tab once daily [Active]; Abilify 5 mg Oral tab 1 tab nightly tl2 [Active]; albuterol sulfate 1.25 mg/3 mL Inhl nebu 3 mL 3 times per day [Active]; Ambien 10 mg Oral tab 1 tab nightly [Active]; benztropine 1 mg Oral tab 1 tab [Active]; Breo Ellipta 100-25 mcg/dose inhalation dsdv 1 puff once daily [Active]; buspirone 15 mg Oral tab 1 tab 2 times per day [Active]; Coreg 25 mg Oral tab 1 tab 2 times per day [Active]; Daliresp 500 mcg Oral tab 1 tab once daily [Active]; digoxin 125 mcg Oral tab 1 tab once daily [Active]; esomeprazole magnesium 40 mg oral cpDR 1 cap once daily [Active]; Keppra 1,000 mg Oral tab 1 tab every 12 hours [Active]; levothyroxine 125 mcg tab 1 tab once daily [Active]; loratadine 10 mg Oral tab 1 tab once daily [Active]; meclizine 25 mg Oral tab 1 tab 4 times per day [Active]; ProAir HFA 90 mcg/actuation inhalation HFAA 2 puffs QID PRN [Active]; Ranexa 500 mg Oral Tb12 1 tab 2 times per day [Active]; isosorbide dinitrate 30 mg Oral tab 1 tab daily [Active]; Topamax 100 mg Oral tab 2 tabs 2 times per day [Active]; Xanax 0.25 mg Oral tab 1 tab prn [Active]; venlafaxine 150 mg oral cp24 1 cap once daily [Active]; Spiriva with HandiHaler 18 mcg inhalation CpDv 1 cap once daily [Active]; Nexium 40 mg Oral cpDR 1 cap once daily [Active]; Eliquis 5 mg Oral tab 1 tab daily [Active]; Effexor XR 150 mg Oral cp24 1 cap once daily [Active]; - PMHx: 23:02 Anxiety; Asthma; Back pain; Bronchitis; Hypertension; HYPOGLYCEMIA; Hypothyroidism; tl2 internal heart monitor; Kidney stones; mitral valve prolapse; Myocardial infarction; neuropathy; Seizures; Upper Resp Infection; sick sinus syndrome; Pacemaker; - PSHx: 23:02 Cholecystectomy; Hysterectomy; tl2 - Immunization history:: Adult Immunizations up to date. - Social history:: Smoking status: Patient/guardian denies using tobacco. - Ebola Screening: : No symptoms or risks identified at this time. - Family history:: not pertinent. ROS: 23:48 Constitutional: Negative for fever, chills, and weight loss, Eyes: Negative for injury, taty pain, redness, and discharge, ENT: Negative for injury, pain, and discharge, Neck: Negative for injury, pain, and swelling, Cardiovascular: Negative for chest pain, palpitations, and edema, Respiratory: Negative for shortness of breath, cough, wheezing, and pleuritic chest pain, Back: Negative for injury and pain, : Negative for injury, bleeding, discharge, and swelling, MS/Extremity: Negative for injury and deformity, Skin: Negative for injury, rash, and discoloration, Neuro: Negative for headache, weakness, numbness, tingling, and seizure, Psych: Negative for depression, anxiety, suicide ideation, homicidal ideation, and hallucinations, Allergy/Immunology: Negative for hives, rash, and allergies, Endocrine: Negative for neck swelling, polydipsia, polyuria, polyphagia, and marked weight changes, Hematologic/Lymphatic: Negative for swollen nodes, abnormal bleeding, and unusual bruising. 23:48 Abdomen/GI: Positive for abdominal pain, of the epigastric area, right upper quadrant and left upper quadrant. Exam: 23:48 Constitutional: This is a well developed, well nourished patient who is awake, alert, taty and in no acute distress. Head/Face: Normocephalic, atraumatic. Eyes: Pupils equal round and reactive to light, extra-ocular motions intact. Lids and lashes normal. Conjunctiva and sclera are non-icteric and not injected. Cornea within normal limits. Periorbital areas with no swelling, redness, or edema. ENT: Nares patent. No nasal discharge, no septal abnormalities noted. Tympanic membranes are normal and external auditory canals are clear. Oropharynx with no redness, swelling, or masses, exudates, or evidence of obstruction, uvula midline. Mucous membranes moist. Neck: Trachea midline, no thyromegaly or masses palpated, and no cervical lymphadenopathy. Supple, full range of motion without nuchal rigidity, or vertebral point tenderness. No Meningismus. Chest/axilla: Normal chest wall appearance and motion. Nontender with no deformity. No lesions are appreciated. Cardiovascular: Regular rate and rhythm with a normal S1 and S2. No gallops, murmurs, or rubs. Normal PMI, no JVD. No pulse deficits. Respiratory: Lungs have equal breath sounds bilaterally, clear to auscultation and percussion. No rales, rhonchi or wheezes noted. No increased work of breathing, no retractions or nasal flaring. Back: No spinal tenderness. No costovertebral tenderness. Full range of motion. Female : Normal external genitalia. Skin: Warm, dry with normal turgor. Normal color with no rashes, no lesions, and no evidence of cellulitis. MS/ Extremity: Pulses equal, no cyanosis. Neurovascular intact. Full, normal range of motion. Neuro: Awake and alert, GCS 15, oriented to person, place, time, and situation. Cranial nerves II-XII grossly intact. Motor strength 5/5 in all extremities. Sensory grossly intact. Cerebellar exam normal. Normal gait. Psych: Awake, alert, with orientation to person, place and time. Behavior, mood, and affect are within normal limits. 23:48 Abdomen/GI: Inspection: abdomen appears normal, Bowel sounds: normal, Palpation: mild abdominal tenderness, moderate abdominal tenderness, in the epigastric area, right upper quadrant and left upper quadrant, Liver: no appreciated palpable abnormalities, Hernia: not appreciated. Vital Signs: 23:02 BP 117 / 80; Pulse 109; Resp 20; Temp 99.1(O); Pulse Ox 99% on R/A; Weight 51.71 kg; tl2 Height 4 ft. 11 in. (149.86 cm); Pain 10/10; 05/19 00:25 BP 105 / 77; Pulse 98; Resp 18; Pulse Ox 100% on R/A; mg2 01:31 BP 112 / 77; Pulse 94; Resp 18; Pulse Ox 100% on R/A; mg2 02:38 BP 121 / 78; Pulse 89; Resp 18; Pulse Ox 100% on R/A; Pain 0/10; mg2 05/18 23:02 Body Mass Index 23.02 (51.71 kg, 149.86 cm) tl2 MDM: 05/18 23:09 Patient medically screened. [facility] 23:51 Data reviewed: vital signs, nurses notes, lab test result(s), radiologic studies. [facility] 05/18 23:45 Order name: Amylase, Serum; Complete Time: 00:53 [facility] 05/18 23:45 Order name: Basic Metabolic Panel; Complete Time: 00:53 [facility] 05/18 23:45 Order name: CBC with Diff; Complete Time: 00:33 [facility] 05/18 23:45 Order name: Creatinine for Radiology; Complete Time: 00:53 [facility] 05/18 23:45 Order name: Hepatic Function; Complete Time: 00:53 [facility] 05/18 23:45 Order name: Lipase; Complete Time: 00:53 [facility] 05/18 23:45 Order name: Urine Microscopic Only; Complete Time: 02:21 [facility] 05/18 23:45 Order name: CT Abd/Pelvis - Without Cont [facility] 05/19 00:31 Order name: Urine Dipstick--Ancillary (enter results); Complete Time: 02:21 [facility] 05/19 00:31 Order name: Urine --Ancillary (enter results); Complete Time: 02:21 [facility] 05/18 23:45 Order name: Urine Test (obtain specimen); Complete Time: 00:08 [facility] 05/18 23:45 Order name: IV Saline Lock; Complete Time: 00: [facility] 05/18 23:45 Order name: Labs collected and sent; Complete Time: 00: [facility] 05/18 23:45 Order name: Urine Dipstick-Ancillary (obtain specimen); Complete Time: 00:09 [facility] Administered Medications: 05/19 00:08 Drug: NS 0.9% 1000 ml Route: IV; Rate: 1 bolus; Site: right forearm; mg2 01:40 Follow up: Response: No adverse reaction; IV Status: Completed infusion mg2 00:09 Drug: Dilaudid 1 mg Route: IVP; Site: right forearm; mg2 01:06 Follow up: Response: No adverse reaction; Marked relief of symptoms mg2 00:09 Drug: Zofran 4 mg Route: IVP; Site: right forearm; mg2 01:06 Follow up: Response: No adverse reaction; Nausea unchanged mg2 00:09 Drug: Pepcid 20 mg Route: IVP; Site: right forearm; mg2 01:06 Follow up: Response: No adverse reaction; Marked relief of symptoms mg2 00:52 Drug: ProTONIX 40 mg Route: IVP; Site: right forearm; mg2 01:40 Follow up: Response: No adverse reaction; Marked relief of symptoms mg2 01:09 Drug: Zofran 4 mg Route: IVP; Site: right forearm; mg2 01:39 Follow up: Response: No adverse reaction; Nausea unchanged; Vomiting unchanged mg2 01:39 Drug: Phenergan 12.5 mg Route: IVP; Site: right forearm; mg2 02:37 Follow up: Response: No adverse reaction; Marked relief of symptoms mg2 02:37 Drug: GI Cocktail without - (Maalox Suspension 30 ml, Lidocaine Liquid 2 % 15 mg2 ml) Route: PO; 02:38 Follow up: Response: No adverse reaction; Medication administered at discharge. mg2 Point of Care Testing: Guaiac: 05/18 23:48 Stool Guaiac: Negative; Stool Hemoccult Control: Pass; taty Disposition: 05/19/18 02:23 Discharged to Home. Impression: Abdominal tenderness, Gastritis, unspecified, Vomiting, Constipation, Congenital hiatus hernia. - Condition is Stable. - Discharge Instructions: Abdominal Pain, Adult, Constipation, Adult, Nausea and Vomiting, Adult, Abdominal Pain, Adult, [id number]. - Prescriptions for Protonix 40 mg Oral Tablet - take 1 tablet by ORAL route once daily; 30 tablet. Zofran 4 mg Oral Tablet - take 1 tablet by ORAL route every 12 hours As needed; 20 tablet. promethazine 25 mg Oral Tablet - take 1 tablet by ORAL route every 6 hours As needed; 20 tablet. - Medication Reconciliation Form, Thank You Letter, Antibiotic Education, Prescription Opioid Use form. - Follow up: Private Physician; When: 2 - 3 days; Reason: Recheck today's complaints, Continuance of care, Re-evaluation by your physician. Follow up: Linus Boone; When: 2 - 3 days; Reason: Recheck today's complaints, Continuance of care, Re-evaluation by your physician. - Problem is new. - Symptoms have improved. Signatures: Dispatcher [employer] EDMS Caio Aceves MD MD cha Knox, Taylor, RN RN tl2 Martin Castro RN RN mg2 Corrections: (The following items were deleted from the chart) 05/19 02:23 02:23 05/19/2018 02:23 Discharged to Home. Impression: Abdominal tenderness; Gastritis, taty unspecified; Vomiting. Condition is Stable. Discharge Instructions: Abdominal Pain, Adult, Nausea and Vomiting, Adult, Abdominal Pain, Adult, [id number]. Prescriptions for Protonix 40 mg Oral Tablet - take 1 tablet by ORAL route once daily; 30 tablet, Zofran 4 mg Oral Tablet - take 1 tablet by ORAL route every 12 hours As needed; 20 tablet, promethazine 25 mg Oral Tablet - take 1 tablet by ORAL route every 6 hours As needed; 20 tablet. and Forms are Medication Reconciliation Form, Thank You Letter, Antibiotic Education, Prescription Opioid Use. Follow up: Private Physician; When: 2 - 3 days; Reason: Recheck today's complaints, Continuance of care, Re-evaluation by your physician. Follow up: Linus Boone; When: 2 - 3 days; Reason: Recheck today's complaints, Continuance of care, Re-evaluation by your physician. Problem is new. Symptoms have improved. taty 02:41 02:23 05/19/2018 02:23 Discharged to Home. Impression: Abdominal tenderness; Gastritis, mg2 unspecified; Vomiting; Constipation; Congenital hiatus hernia. Condition is Stable. Discharge Instructions: Abdominal Pain, Adult, Nausea and Vomiting, Adult, Abdominal Pain, Adult, [id number]. Prescriptions for Protonix 40 mg Oral Tablet - take 1 tablet by ORAL route once daily; 30 tablet, Zofran 4 mg Oral Tablet - take 1 tablet by ORAL route every 12 hours As needed; 20 tablet, promethazine 25 mg Oral Tablet - take 1 tablet by ORAL route every 6 hours As needed; 20 tablet. and Forms are Medication Reconciliation Form, Thank You Letter, Antibiotic Education, Prescription Opioid Use. Follow up: Private Physician; When: 2 - 3 days; Reason: Recheck today's complaints, Continuance of care, Re-evaluation by your physician. Follow up: Linus Boone; When: 2 - 3 days; Reason: Recheck today's complaints, Continuance of care, Re-evaluation by your physician. Problem is new. Symptoms have improved. taty
--- NOTE | 2018-05-19 02:23 | ER ---
Nurse's Notes [facility] Name: Jenni Draper Age: 37 yrs Sex: Female : 1980 Arrival Date: 05/18/2018 Time: 22:39 Bed 26 Private MD: Diagnosis: Abdominal tenderness;Gastritis, unspecified;Vomiting;Constipation;Congenital hiatus hernia Presentation: 05/18 22:55 Presenting complaint: Patient states: RLQ pain since this morning, saw PCP today and tl2 was referred to Dr. Boone. Pain got worse tonight and also has epigastric pain. Reports nausea and vomiting. Transition of care: patient was not received from another setting of care. Onset of symptoms was May 18, 2018. Risk Assessment: Do you want to hurt yourself or someone else? Patient reports no desire to harm self or others. Initial Sepsis Screen: Does the patient meet any 2 criteria? No. Patient's initial sepsis screen is negative. Does the patient have a suspected source of infection? No. Patient's initial sepsis screen is negative. Care prior to arrival: None. 22:55 Method Of Arrival: Ambulatory tl2 22:55 Acuity: LYUBOV 3 tl2 Triage Assessment: 23:02 General: Appears in no apparent distress. uncomfortable, Behavior is cooperative, tl2 appropriate for age, anxious. Pain: Complains of pain in epigastric area and right lower quadrant. GI: Reports nausea, vomiting. 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 tl2 Historical: - Allergies: 23:02 Adhesives; tl2 23:02 Aspirin; tl2 23:02 Bactrim; tl2 23:02 Ciprofloxacin; tl2 23:02 Clindamycin; tl2 23:02 Codeine; tl2 23:02 Detrol; tl2 23:02 GABAPENTIN; tl2 23:02 Iodine; tl2 23:02 Latex, Natural Rubber; tl2 23:02 Morphine; tl2 23:02 PENICILLINS; tl2 23:02 Seroquel; tl2 23:02 Sulfa (Sulfonamide Antibiotics); tl2 23:02 tramadol; tl2 23:02 Benadryl; tl2 - Home Meds: 23:02 Abilify 10 mg Oral tab 1 tab once daily [Active]; Abilify 5 mg Oral tab 1 tab nightly tl2 [Active]; albuterol sulfate 1.25 mg/3 mL Inhl nebu 3 mL 3 times per day [Active]; Ambien 10 mg Oral tab 1 tab nightly [Active]; benztropine 1 mg Oral tab 1 tab [Active]; Breo Ellipta 100-25 mcg/dose inhalation dsdv 1 puff once daily [Active]; buspirone 15 mg Oral tab 1 tab 2 times per day [Active]; Coreg 25 mg Oral tab 1 tab 2 times per day [Active]; Daliresp 500 mcg Oral tab 1 tab once daily [Active]; digoxin 125 mcg Oral tab 1 tab once daily [Active]; esomeprazole magnesium 40 mg oral cpDR 1 cap once daily [Active]; Keppra 1,000 mg Oral tab 1 tab every 12 hours [Active]; levothyroxine 125 mcg tab 1 tab once daily [Active]; loratadine 10 mg Oral tab 1 tab once daily [Active]; meclizine 25 mg Oral tab 1 tab 4 times per day [Active]; ProAir HFA 90 mcg/actuation inhalation HFAA 2 puffs QID PRN [Active]; Ranexa 500 mg Oral Tb12 1 tab 2 times per day [Active]; isosorbide dinitrate 30 mg Oral tab 1 tab daily [Active]; Topamax 100 mg Oral tab 2 tabs 2 times per day [Active]; Xanax 0.25 mg Oral tab 1 tab prn [Active]; venlafaxine 150 mg oral cp24 1 cap once daily [Active]; Spiriva with HandiHaler 18 mcg inhalation CpDv 1 cap once daily [Active]; Nexium 40 mg Oral cpDR 1 cap once daily [Active]; Eliquis 5 mg Oral tab 1 tab daily [Active]; Effexor XR 150 mg Oral cp24 1 cap once daily [Active]; - PMHx: 23:02 Anxiety; Asthma; Back pain; Bronchitis; Hypertension; HYPOGLYCEMIA; Hypothyroidism; tl2 internal heart monitor; Kidney stones; mitral valve prolapse; Myocardial infarction; neuropathy; Seizures; Upper Resp Infection; sick sinus syndrome; Pacemaker; - PSHx: 23:02 Cholecystectomy; Hysterectomy; tl2 - Immunization history:: Adult Immunizations up to date. - Social history:: Smoking status: Patient/guardian denies using tobacco. - Ebola Screening: : No symptoms or risks identified at this time. - Family history:: not pertinent. Screenin:03 Abuse screen: Denies threats or abuse. Nutritional screening: No deficits noted. tl2 Tuberculosis screening: No symptoms or risk factors identified. Fall Risk Ambulatory Aid- Crutches/Cane/Walker (15 pts). Gait- Impaired (20 pts.). Assessment: 23:28 General: Appears uncomfortable, Behavior is calm, cooperative. Pain: Complains of pain mg2 in abdomen and right lower quadrant and epigastric area Pain does not radiate. Pain currently is 10 out of 10 on a pain scale. Quality of pain is described as aching, Pain began gradually, Is intermittent, Aggravated by increased activity, repositioning. Neuro: Level of Consciousness is awake, alert, obeys commands, Oriented to person, place, time. Cardiovascular: Capillary refill < 3 seconds Patient's skin is warm and dry. Respiratory: Airway is patent Respiratory effort is even, unlabored, Respiratory pattern is regular, symmetrical. GI: Abdomen is flat, non-distended, Abdomen is tender to palpation Reports lower abdominal pain, upper abdominal pain, nausea, vomiting. :. EENT: No signs and/or symptoms were reported regarding the EENT system. Derm: Skin is intact, Skin is pink, warm \T\ dry. normal. Musculoskeletal: Circulation, motion, and sensation intact. 05/19 00:25 Reassessment: Patient appears in no apparent distress at this time. Patient and/or mg2 family updated on plan of care and expected duration. Pain level reassessed. Patient is alert, oriented x 3, equal unlabored respirations, skin warm/dry/pink. patient sent to ct scan. 01:00 GI: Bowel sounds present X 4 quads. mg2 01:31 Reassessment: Patient appears in no apparent distress at this time. Patient and/or mg2 family updated on plan of care and expected duration. Pain level reassessed. Patient is alert, oriented x 3, equal unlabored respirations, skin warm/dry/pink. 02:39 Reassessment: patient improved. mg2 Vital Signs: 05/18 23:02 BP 117 / 80; Pulse 109; Resp 20; Temp 99.1(O); Pulse Ox 99% on R/A; Weight 51.71 kg; tl2 Height 4 ft. 11 in. (149.86 cm); Pain 10/10; 05/19 00:25 BP 105 / 77; Pulse 98; Resp 18; Pulse Ox 100% on R/A; mg2 01:31 BP 112 / 77; Pulse 94; Resp 18; Pulse Ox 100% on R/A; mg2 02:38 BP 121 / 78; Pulse 89; Resp 18; Pulse Ox 100% on R/A; Pain 0/10; mg2 05/18 23:02 Body Mass Index 23.02 (51.71 kg, 149.86 cm) tl2 ED Course: 05/18 22:39 Patient arrived in ED. es 22:56 Triage completed. tl2 23:02 Arm band placed on right wrist. tl2 23:03 Patient has correct armband on for positive identification. Placed in gown. Bed in low tl2 position. Call light in reach. Side rails up X 1. Adult w/ patient. 23:09 Caio Aceves MD is Attending Physician. taty 23:15 Martin Castro RN is Primary Nurse. mg2 23:27 No provider procedures requiring assistance completed. Inserted saline lock: 20 gauge mg2 in right forearm, using aseptic technique. Blood collected. 05/19 00:[address] via wheelchair. kw1 00:34 CT completed. Patient tolerated procedure well. Patient moved back from CT. kw1 00:35 CT Abd/Pelvis - Without Cont In Process Unspecified. EDMS 02:23 Linus Boone MD is Referral Physician. taty 02:39 IV discontinued, intact, bleeding controlled, No redness/swelling at site. Pressure mg2 dressing applied. Administered Medications: 00:08 Drug: NS 0.9% 1000 ml Route: IV; Rate: 1 bolus; Site: right forearm; mg2 01:40 Follow up: Response: No adverse reaction; IV Status: Completed infusion mg2 00:09 Drug: Dilaudid 1 mg Route: IVP; Site: right forearm; mg2 01:06 Follow up: Response: No adverse reaction; Marked relief of symptoms mg2 00:09 Drug: Zofran 4 mg Route: IVP; Site: right forearm; mg2 01:06 Follow up: Response: No adverse reaction; Nausea unchanged mg2 00:09 Drug: Pepcid 20 mg Route: IVP; Site: right forearm; mg2 01:06 Follow up: Response: No adverse reaction; Marked relief of symptoms mg2 00:52 Drug: ProTONIX 40 mg Route: IVP; Site: right forearm; mg2 01:40 Follow up: Response: No adverse reaction; Marked relief of symptoms mg2 01:09 Drug: Zofran 4 mg Route: IVP; Site: right forearm; mg2 01:39 Follow up: Response: No adverse reaction; Nausea unchanged; Vomiting unchanged mg2 01:39 Drug: Phenergan 12.5 mg Route: IVP; Site: right forearm; mg2 02:37 Follow up: Response: No adverse reaction; Marked relief of symptoms mg2 02:37 Drug: GI Cocktail without - (Maalox Suspension 30 ml, Lidocaine Liquid 2 % 15 mg2 ml) Route: PO; 02:38 Follow up: Response: No adverse reaction; Medication administered at discharge. mg2 Point of Care Testing: Guaiac: 05/18 23:48 Stool Guaiac: Negative; Stool Hemoccult Control: Pass; taty Outcome: 05/19 02:23 Discharge ordered by . taty 02:40 Discharged to home ambulatory, with family. mg2 02:40 Condition: stable 02:40 Discharge instructions given to patient, family, Instructed on discharge instructions, follow up and referral plans. medication usage, Demonstrated understanding of instructions, follow-up care, medications, Prescriptions given X 3. 02:41 Patient left the ED. mg2 Signatures: Dispatcher [employer] Caio Marques MD MD cha Salyer, Edna es Knox, Taylor, RN RN tl2 Marcela Marley1 Martin Castro RN RN mg2 Corrections: (The following items were deleted from the chart) 02:41 02:40 GI: Bowel sounds present X 4 quads. mg2 mg2
[2018-05-19] MEDS ORDERED: MAGNE/ALUM HYDROXD 30 ML UCUP ONE (02:35)
[2018-05-19] MEDS ORDERED: LIDOCAINE VISCOUS 2% SOLN 15 ML UDC ONE (02:35)
[2018-05-19 02:47] VITALS: TEMP 99.1
[2018-05-19 02:48] VITALS: O2SAT 100
[2018-05-19 02:50] VITALS: BP 121/78
--- NOTE | 2018-05-19 10:32 | RAD REPORT ---
EXAM DESCRIPTION: CT - Abdomen Pelvis Wo Contrast - 05/19/2018 4:28 am CLINICAL HISTORY: Abdominal pain /right lower quadrant pain since this morning COMPARISON: 2016 TECHNIQUE: Computed axial tomography of the abdomen and pelvis was obtained. IV and oral contrast we re not requested. Preliminary report was generated by [employer] and reviewed prior to this d ictation All CT scans are performed using dose optimization technique as appropriate and may include automated exposure control or mA/KV adjustment according to patient size. FINDINGS: The evaluation of solid organs, vessels and bowel is limited secondary to the lack of con trast administration. The liver, pancreas, and adrenals and kidneys appear grossly normal. Tiny bilateral renal calculi are present without hydronephrosis. A ureteral calculus is not visualize d. There is no evidence of diverticulitis. The gallbladder has been removed Nonvisualization of the appendix. My suspicion for appendicitis is low given and at no stranding is s een within the right lower quadrant. However if the patient has clinical symptoms to suggest appendic itis then a CT scan with IV and oral contrast would be recommended IMPRESSION: Tiny nonobstructing renal calculi
== END 2018-05-19 02:41 | disposition home or self-care (01) ==
LOC: ER 22:34
DX: K29.70 Gastritis, unspecified, without bleeding (principal); K59.00 Constipation, unspecified; R11.2 Nausea with vomiting, unspecified; Q40.1 Congenital hiatus hernia; Z95.0 Presence of cardiac pacemaker; Z88.6 Allergy status to analgesic agent; Z88.1 Allergy status to other antibiotic agents; Z91.041 Radiographic dye allergy status; Z91.040 Latex allergy status; Z88.5 Allergy status to narcotic agent; Z88.0 Allergy status to penicillin; Z88.2 Allergy status to sulfonamides; Z88.8 Allergy status to other drugs, medicaments and biological substances; Z91.048 Other nonmedicinal substance allergy status
CPT/HCPCS: 36415; 74176; 80048; 80076; 81003; 81015; 81025; 82150; 83690; 85025; 96361; 96374; 96375; 99284; C9113; J2405; J2550

== ENCOUNTER 2018-08-17 11:19 | Emergency (ER) | payer MEDICAID ==
--- OUTSIDE RECORDS SUMMARY | 2018-08-17 11:21 | XMS REPORT ---
:1980 [facility] [address] Ervin [address] [place] [id number] Care Team Providers Name Role Phone MILTONTAMARA [...] Department ID 2017-09-06 2017-09-08 Inpatient E [facility] [id number] 10:12:00 02:32:00 LYLY Results Test Description Test Time Test Comments Text Results Atomic Results Result Comments AFB Culture and Smear 2017-11-01 13:24:00 Specimen/Source: Wound/PACEMAKERCollected: 09/05/2017 19:45 Status: Final Last Updated: 11/01/2017 13:24 [id number] (Final) (Final) 09/07/17 No acid fast bacill [...] <=8/4 Susceptible Cefazolin (CFZ) <=4 Susceptible Ceftriaxone (ROUTE CONTRACTOR) <=4 Susceptible Chloramphenicol (C) <=8 Susceptible Ciprofloxacin [...] race is not provided, and the patient isAfrican-Mauritian, multiply by 1.212. If sex is not [...] the National Kidney Foundation,http://nkdep.nih.go v CBC with [id number] 07:39:00 Test Item Value Reference Range Comments [...] Lymph Abs (test code=ALYMPH) 1.7 K/cumm 0.5-4.6 Garfield Abs (test code=AMONO) 0.3 K/cumm 0.0-1.2 Eos Abs (test code=AEOS) 0.29 K/cumm 0.00-0.74 Baso Abs (test code=ABASO) 0.0 K/cumm 0.00-0.21 Vancomycin, [id number] 12:33:00 Test Item Value Reference Range Comments Vanco, Trou (test code=VANTR) 7.9 ug/mL 10.0-20.0 Magnesium, [id number] 06:37:00 Test Item Value Reference Range Comments Magnesium (test code=MG) 2.4 mg/dL 1.7-2.5 Renal [id number] 06:29:00 Test Item Value Reference Range Comments [...] race is not provided, and the patient isAfrican-Mauritian, multiply by 1.212. If sex is not [...] the National Kidney Foundation,http://nkdep.nih .gov BHCG, Serum, [id number] 06:26:00 Test Item Value Reference Range Comments Preg Qual [Se] (test code=BSHCG) Negative Negative CBC with [id number] 06:24:00 Test Item Value Reference Range Comments [...] Lymph Abs (test code=ALYMPH) 1.6 K/cumm 0.5-4.6 Garfield Abs (test code=AMONO) 0.4 K/cumm 0.0-1.2 Eos Abs (test code=AEOS) 0.18 K/cumm 0.00-0.74 Baso Abs (test code=ABASO) 0.0 K/cumm 0.00-0.21 XR CHEST 1 [id number] 16:29:55XR CHEST 1 VIEWLOCATION: [id number]: None.INDICATION: REVIEW PICC LINE PLACEMENTDISCUSSION:AP chest and [...] TSH (test code=TSH) 3.44 mIU/mL 0.270-4.200 Lipid [id number] 05:47:00 Test Item Value Reference Range Comments Cholesterol (test 160 mg/dL 0-200 code=CHOL) Triglycerides (test 126 mg/dL 9-200 code=TRIG) HDL (test code=HDL) 35 mg/dL 50-60 Chol/HDL (test 4.6 Ratio 0.0-4.4 code=CHOLPHDL) LDL, Calculated (test 100 0-130 (NOTE)RISK OF HEART code=LDLC) DISEASEPublished by Mauritian Heart AssociationAnalyte Optimal Boderline Increased RiskCHOL <200 200-239 >240TRIG <150 150-199 >200HDL Male: >60 <40HDL Female: >60 <50LDL <100 130-159 >160LDL NEAR OPTIMAL IS 100-129 VLDL (test code=VLDL) 25 mg/dL 5-40 LDL/HDL (test code=LDLPHDL) 3 Basic Metabolic [id number] 05:47:00 Test Item Value Reference Range Comments [...] race is not provided, and the patient isAfrican-Mauritian, multiply by 1.212. If sex is not provided, and thepatient is female, multiply by 0.742. Results for patients <18 years ofage have not been validated by the MDRD study and should be interpretedwith caution.eGFR Result Interpretation:eGFR > or=60 is in the Normal RangeeGFR < 60 may mean kidney diseaseeGFR < 15 may mean kidney failureRanges recommended by the National Kidney Foundation,http://nkdep.nih .gov Magnesium, [id number] 05:47:00 Test Item Value Reference Range Comments Magnesium (test code=MG) 2.3 mg/dL 1.7-2.5 CBC with [id number] 05:36:00 Test Item Value Reference Range Comments [...] Lymph Abs (test code=ALYMPH) 2.2 K/cumm 0.5-4.6 Garfield Abs (test code=AMONO) 0.3 K/cumm 0.0-1.2 Eos Abs (test code=AEOS) 0.24 K/cumm 0.00-0.74 Baso Abs (test code=ABASO) 0.0 K/cumm 0.00-0.21 Partial Thromboplastin [id number] 21:26:00 Test Item Value Reference Range Comments aPTT (test code=PTT) 29.00 seconds 24.39-37.25 Prothrombin [id number] 21:26:00 Test Item Value Reference Range Comments PT (test code=PT) 10.70 seconds 9.78-13.35 INR (test code=INR) 0.95 Ratio 0.6-1.2 Comprehensive Metabolic [id number] 21:23:00 Test Item Value Reference Range Comments [...] race is not provided, and the patient isAfrican-Mauritian, multiply by 1.212. If sex is not [...] the National Kidney Foundation,http://nkdep.nih .gov CBC with [id number] 21:16:00 Test Item Value Reference Range Comments [...] Lymph Abs (test code=ALYMPH) 2.2 K/cumm 0.5-4.6 Garfield Abs (test code=AMONO) 0.4 K/cumm 0.0-1.2 Eos Abs (test code=AEOS) 0.17 K/cumm 0.00-0.74 Baso Abs (test code=ABASO) 0.1 K/cumm 0.00-0.21
--- NOTE | 2018-08-17 12:56 | RAD REPORT ---
EXAM DESCRIPTION: RAD - Chest Single View - 08/17/2018 12:37 pm CLINICAL HISTORY: Shortness of breath, left-sided numbness and weakness COMPARISON: December 2017 TECHNIQUE: AP portable chest image was obtained 1232 hours . FINDINGS: Lungs are clear. Heart and vasculature are normal. No measurable pleural effusion and no p neumothorax. No acute bony abnormality seen. No acute aortic findings suspected. IMPRESSION: No acute cardiopulmonary process. No significant change from comparison.
[2018-08-17 13:27] LABS: Absolute Lymphocytes (CBC) 1.8 K/uL (0.7-4.9); Absolute Monocytes 0.4 K/uL (0.1-1.3); Absolute Neutrophil 3.7 K/uL (1.8-8.0); Basophils % 1.2 % (0-1.3); Hematocrit 44.9 % (36.0-45.0); Lymphocytes % 28.7 % (15.3-44.8); MCH 29.8 pg (27.0-35.0); MCV 86.7 fL (80-100); MPV 8.9 fL (7.6-11.3); Monocytes % 6.3 % (3.3-12.3); RBC Red Blood Cell Count 5.17 M/uL (3.86-4.86)
[2018-08-17 13:31] LABS: ALT/SGPT 23 U/L (12-78); AST/SGOT 17 U/L (15-37); Albumin 4.1 g/dL (3.4-5.0); Alkaline Phosphatase 132 U/L (45-117); BUN Blood Urea Nitrogen 9 mg/dL (7-18); Bicarbonate 25 mmol/L (21-32); Bilirubin Direct 0.1 mg/dL (0-0.2); Bilirubin Total 0.3 mg/dL (0.2-1.0); Glucose Level 89 mg/dL (74-106); Magnesium 2.5 mg/dL (1.8-2.4); NT PRO-BNP 101 pg/mL (<125); Potassium 4.1 mmol/L (3.5-5.1); Protein, Total 8.6 g/dL (6.4-8.2); Sodium Level 141 mmol/L (136-145); Troponin (Emerg Dept Use Only) < 0.02 ng/mL (0.0-0.045)
--- NOTE | 2018-08-17 13:31 | RAD REPORT ---
EXAM DESCRIPTION: CT - Head Brain Wo Cont - 08/17/2018 1:13 pm CLINICAL HISTORY: Speech difficulty, left-sided body numbness COMPARISON: CT head September 2008 TECHNIQUE: Axial 5 mm thick images of the head were obtained without IV contrast. All CT scans are performed using dose optimization technique as appropriate and may include automated exposure control or mA/KV adjustment according to patient size. FINDINGS: No intracranial hemorrhage, mass, edema or shift of mid-line structures. No acute infarcti on changes seen. No abnormal extra-axial fluid collections. Ventricles are normal. Mastoid air cells are clear. Extensive mucosal thickening and near complete opacification of the ethm oid and maxillary sinuses. Frontal sinuses are not pneumatized. No acute bony findings. IMPRESSION: No acute intracranial finding. Extensive sinusitis findings only partially imaged on this study.
[2018-08-17 14:33] LABS: Urine Blood NEGATIVE (NEG); Urine Glucose NEGATIVE (NEG); Urine Protein NEGATIVE (NEG)
--- NOTE | 2018-08-17 14:41 | EDPHYS ---
Physician Documentation [facility] Name: Jenni Draper Age: 38 yrs Sex: Female : 1980 Arrival Date: 08/17/2018 Time: : Bed 14 Private MD: KIARA CRAIG ED Physician Caio Aceves HPI: 08/17 12:30 This 38 yrs old Female presents to ER via Wheelchair with complaints of Left cp Side Numbness. 12:30 The patient's problem is reported as weakness, left side of body, numbness left side of cp body. 12:30 Onset: The symptoms/episode began/occurred last night, at 00:30. Duration: The episode cp is continuous. Context: symptoms became apparent at 00:30. Associated signs and symptoms: Pertinent negatives: abdominal pain, chest pain, diaphoresis, headache, vomiting. Severity of symptoms: in the emergency department the symptoms are unchanged. Patient's baseline: Neuro: alert and fully oriented, Motor: no deficits, Ambulation: walks without assistance, Speech: normal. The patient has been recently seen by a physician: in [place] ED for symptoms of numbness on left side. Patient reports having CT of head done and being diagnosed with sinusitis. 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 LMP N/A - Hysterectomy aa5 Historical: - Allergies: 11:37 Adhesives; aa5 11:37 Aspirin; aa5 11:37 Bactrim; aa5 11:37 Benadryl; aa5 11:37 Ciprofloxacin; aa5 11:37 Clindamycin; aa5 11:37 Codeine; aa5 11:37 Detrol; aa5 11:37 GABAPENTIN; aa5 11:37 Iodine; aa5 11:37 Latex, Natural Rubber; aa5 11:37 Morphine; aa5 11:37 PENICILLINS; aa5 11:37 Seroquel; aa5 11:37 Sulfa (Sulfonamide Antibiotics); aa5 11:37 tramadol; aa5 - Home Meds: 11:56 Abilify 10 mg Oral tab 1 tab once daily [Active]; Abilify 5 mg Oral tab 1 tab nightly tw2 [Active]; albuterol sulfate 1.25 mg/3 mL Inhl nebu 3 mL 3 times per day [Active]; Ambien 10 mg Oral tab 1 tab nightly [Active]; benztropine 1 mg Oral tab 1 tab [Active]; Breo Ellipta 100-25 mcg/dose inhalation dsdv 1 puff once daily [Active]; buspirone 15 mg Oral tab 1 tab 2 times per day [Active]; Coreg 25 mg Oral tab 1 tab 2 times per day [Active]; Daliresp 500 mcg Oral tab 1 tab once daily [Active]; digoxin 125 mcg Oral tab 1 tab once daily [Active]; Effexor XR 150 mg Oral cp24 1 cap once daily [Active]; Eliquis 5 mg Oral tab 1 tab daily [Active]; esomeprazole magnesium 40 mg Oral cpDR 1 cap once daily [Active]; isosorbide dinitrate 30 mg Oral tab 1 tab daily [Active]; Keppra 1,000 mg Oral tab 1 tab every 12 hours [Active]; levothyroxine 125 mcg tab 1 tab once daily [Active]; loratadine 10 mg Oral tab 1 tab once daily [Active]; meclizine 25 mg Oral tab 1 tab 4 times per day [Active]; Nexium 40 mg Oral cpDR 1 cap once daily [Active]; ProAir HFA 90 mcg/actuation inhalation HFAA 2 puffs QID PRN [Active]; Ranexa 500 mg Oral Tb12 1 tab 2 times per day [Active]; Spiriva with HandiHaler 18 mcg inhalation CpDv 1 cap once daily [Active]; Topamax 100 mg Oral tab 2 tabs 2 times per day [Active]; venlafaxine 150 mg Oral cp24 1 cap once daily [Active]; Xanax 0.25 mg Oral tab 1 tab PRN [Active]; - PMHx: 11:37 Anxiety; Back pain; internal heart monitor; Bronchitis; Hypertension; Asthma; aa5 HYPOGLYCEMIA; Hypothyroidism; Kidney stones; mitral valve prolapse; Myocardial infarction; neuropathy; Pacemaker; Seizures; sick sinus syndrome; Upper Resp Infection; TIA; - PSHx: 11:37 Cholecystectomy; Hysterectomy; pacemaker; aa5 - Immunization history:: Flu vaccine is not up to date. - Social history:: Smoking status: Patient/guardian denies using tobacco. - Ebola Screening: : No symptoms or risks identified at this time. ROS: 12:33 Constitutional: Negative for body aches, chills, fever, poor PO intake. cp 12:33 Eyes: Negative for injury, pain, redness, and discharge. cp 12:33 ENT: Negative for drainage from ear(s), ear pain, sore throat, difficulty swallowing, difficulty handling secretions. 12:33 Cardiovascular: Negative for chest pain, edema, palpitations. 12:33 Respiratory: Negative for cough, shortness of breath, wheezing. 12:33 Abdomen/GI: Negative for abdominal pain, nausea, vomiting, and diarrhea, constipation, black/tarry stool, rectal bleeding. 12:33 Skin: Negative for cellulitis, rash. 12:33 Neuro: Positive for numbness, weakness, of the left side of body, Negative for altered mental status, headache. 12:33 All other systems are negative. Exam: 12:42 Constitutional: The patient appears in no acute distress, alert, awake, cp non-diaphoretic, non-toxic, well developed, well nourished, unkempt. 12:42 Head/Face: Normocephalic, atraumatic. Eyes: Pupils equal round and reactive to light, cp extra-ocular motions intact. Lids and lashes normal. Conjunctiva and sclera are non-icteric and not injected. Cornea within normal limits. Periorbital areas with no swelling, redness, or edema. ENT: Nares patent. No nasal discharge, no septal abnormalities noted. Tympanic membranes are normal and external auditory canals are clear. Oropharynx with no redness, swelling, or masses, exudates, or evidence of obstruction, uvula midline. Mucous membranes moist. Neck: Trachea midline, no thyromegaly or masses palpated, and no cervical lymphadenopathy. Supple, full range of motion without nuchal rigidity, or vertebral point tenderness. No Meningismus. Chest/axilla: Normal chest wall appearance and motion. Nontender with no deformity. No lesions are appreciated. 12:42 Cardiovascular: Rate: tachycardic, Rhythm: regular, Pulses: Pulses are 2+ in right radial artery and left radial artery. Heart sounds: murmur, not appreciated, Edema: is not appreciated. 12:42 Respiratory: the patient does not display signs of respiratory distress, Respirations: normal, no use of accessory muscles, no retractions, no splinting, no tachypnea, labored breathing, is not present, Breath sounds: are clear throughout, no decreased breath sounds, no stridor, no wheezing. 12:42 Abdomen/GI: Inspection: abdomen appears normal, Bowel sounds: active, all quadrants, Palpation: abdomen is soft and non-tender, in all quadrants. 12:42 Back: pain, is absent, ROM is normal. 12:42 Skin: cellulitis, is not appreciated, no rash present. 12:42 Neuro: Orientation: to person, place \T\ time. 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 12:45 ECG was reviewed by the Attending Physician. cp 13:45 Radiologist reports: no acute findings cp Vital Signs: 11:38 BP 122 / 91; Pulse 104; Resp 18 S; Temp 98.0(TE); Pulse Ox 100% on R/A; Weight 51.26 kg aa5 (R); Height 4 ft. 9 in. (144.78 cm) (R); Pain 0/10; 13:29 BP 111 / 74; Pulse 98; Resp 17; Pulse Ox 98% on R/A; tw2 14:13 BP 105 / 83; Pulse 89; Resp 17; Pulse Ox 97% on R/A; tw2 15:00 BP 100 / 79; Pulse 97; Resp 17; Pulse Ox 99% on R/A; tw2 16:01 BP 96 / 72; Pulse 100; Resp 17; Pulse Ox 99% on R/A; tw2 16:40 BP 102 / 76; Pulse 94; Resp 17; Pulse Ox 99% on R/A; tw2 11:38 Body Mass Index 24.45 (51.26 kg, 144.78 cm) aa5 NIH Stroke Scale Scores: 13:01 NIHSS Score: 1 cp MDM: 12:10 Patient medically screened. cp 12:32 ED course: Patient is not a candidate for tpa as onset of numbness was last night at 12.cp 14:00 Data reviewed: vital signs, nurses notes, lab test result(s), EKG, radiologic studies, cp CT scan. 14:00 Test interpretation: by ED physician or midlevel provider: ECG. Counseling: I had a cp detailed discussion with the patient and/or guardian regarding: the historical points, exam findings, and any diagnostic results supporting the discharge/admit diagnosis, lab results, radiology results, the need to transfer to another facility, [facility] does not immediately have the required specialist. 14:05 Physician consultation: DR Rivas, neurologist \[facility], will consult and requests cp transfer to hospitalist services. 14:35 Physician consultation: DR Kc, hospitalist \T\[facility], will accept patient as cp transfer. 08/17 12:26 Order name: Basic Metabolic Panel; Complete Time: 13:33 08/17 14:36 Interpretation: Normal except: CL 108. 08/17 12:26 Order name: CBC with Diff; Complete Time: 13:33 08/17 14:36 Interpretation: Normal except: RBC 5.17; HGB 15.4. 08/17 12:26 Order name: LFT's; Complete Time: 13:33 08/17 12:26 Order name: Magnesium; Complete Time: 13:33 08/17 12:26 Order name: NT PRO-BNP; Complete Time: 13:33 08/17 12:26 Order name: PT-INR; Complete Time: 13:33 08/17 12:26 Order name: Troponin (emerg Dept Use Only); Complete Time: 13:33 08/17 12:26 Order name: XRAY Chest (1 view); Complete Time: 13:33 08/17 12:26 Order name: CT Head Brain wo Cont; Complete Time: 13:33 08/17 13:34 Interpretation: Report reviewed. 08/17 14:12 Order name: Urine Dipstick--Ancillary (enter results); Complete Time: 14:36 08/17 14:12 Order name: Urine --Ancillary (enter results); Complete Time: 14:36 08/17 12:26 Order name: EKG; Complete Time: 12:28 08/17 12:26 Order name: Cardiac monitoring; Complete Time: 12:57 08/17 12:26 Order name: EKG - Nurse/Tech; Complete Time: 12:57 08/17 12:26 Order name: IV Saline Lock; Complete Time: 13:09 08/17 12:26 Order name: Labs collected and sent; Complete Time: 13:09 08/17 12:26 Order name: O2 Per Protocol; Complete Time: 13:09 cp 08/17 12:26 Order name: O2 Sat Monitoring; Complete Time: 13: cp 08/17 12:26 Order name: Urine Test (obtain specimen); Complete Time: 12:56 cp 08/17 12:26 Order name: Urine Dipstick-Ancillary (obtain specimen); Complete Time: 12:56 cp EC:45 Rate is 99 beats/min. Rhythm is regular. WI interval is normal. QRS interval is normal. cp QT interval is normal. Interpreted by me. Reviewed by me. Administered Medications: 15:01 Drug: foLIC Acid 1 mg Route: IVPB; Site: left hand; tw2 15:02 Follow up: Response: No adverse reaction; IV Status: Completed infusion tw2 15:02 Follow up: Response: No adverse reaction tw2 15:02 Drug: NS 0.9% 1000 ml Route: IV; Rate: 1 bolus; Site: left hand; tw2 16:41 Follow up: IV Status: Infusion continued upon transfer tw2 15:02 Drug: PlaVIX 75 mg Route: PO; tw2 15:03 Follow up: Response: No adverse reaction tw2 Disposition: 08/17/18 14:40 Transfer ordered to [facility]. Diagnosis are Paresthesia of skin - Left side of body, Weakness - Left Side of body. - Reason for transfer: Higher level of care. - Accepting physician is DR Kc. - Condition is Stable. - Problem is new. - Symptoms are unchanged. NIH Stroke Scale - NIH Stroke Score Date: 08/17/2018 Time: 13:01 Total Score = 1 1a. Level of Consciousness (LOC) - 0(Alert) 1b. Level of Consciousness (LOC) (Year \T\ Age) - 0(Both) 1c. LOC Commands (Open \T\ Closes Eyes/Manufacturing Assistant) - 0(Both) 2. Best Gaze (Lateral Gaze Paresis) - 0(Normal) 3. Visual Field Loss - 0(No visual loss) 4. Facial Palsy - 0(Normal) 5a. Left Arm: Motor (10-second hold) - 0(No drift) 5b. Right Arm: Motor (10-second hold) - 0(No drift) 6a. Left Leg: Motor (5-second hold - always test supine) - 0(No drift) 6b. Right Leg: Motor (5-second hold - always test supine) - 0(No drift) 7. Limb Ataxia (finger/nose \T\ heel/briggs - test with eyes open) - 0(Absent) 8. Sensory Loss (pinprick arms/legs/face) - 1(Mild to moderate loss) 9. Best Language: Aphasia (description/naming/reading) - 0(No aphasia) 10. Dysarthria (speech clarity - read or repeat words) - 0(Normal) 11. Extinction and Inattention (visual/tactile/auditory/spatial/personal) - 0(No abnormality) Initials: cp Addendum: 08/20/2018 08:10 Co-signature as Attending Physician, Caio Aceves MD I agree with the [facility] assessment and plan of care. Signatures: Dispatcher [employer] Caio Marques MD MD cha Calderon, Audri, RN RN aa5 Caio Briones, PA PA Alberta Villasenor RN RN tw2 Corrections: (The following items were deleted from the chart) 08/17 16:42 14:40 08/17/2018 14:40 Transfer ordered to [facility]. tw2 Diagnosis is Paresthesia of skin - Left side of body; Weakness - Left Side of body. Reason for transfer: Higher level of care. Accepting physician is DR Kc. Condition is Stable. Problem is new. Symptoms are unchanged. cp
--- NOTE | 2018-08-17 14:41 | ER ---
Nurse's Notes [facility] Name: Jenni Draper Age: 38 yrs Sex: Female : 1980 Arrival Date: 08/17/2018 Time: : Bed 14 Private MD: KIARA CRAIG Diagnosis: Paresthesia of skin-Left side of body;Weakness-Left Side of body Presentation: 08/17 11:32 Presenting complaint: Patient states: "The whole left side of my body is numb and it aa5 started last night". pt states "I am also having trouble speaking". Pt c/o numbness to left leg, left arm, and left side of face. Pt reports being seen at [place] [facility] last night for same complaint and diagnosed with sinus infection. Pt's family states "her doctor told her that she needs an MRI and to come here but she has a pacemaker". Transition of care: patient was not received from another setting of care. Onset of symptoms was July 2018. Risk Assessment: Do you want to hurt yourself or someone else? Patient reports no desire to harm self or others. Initial Sepsis Screen: Does the patient meet any 2 criteria? No. Patient's initial sepsis screen is negative. Does the patient have a suspected source of infection? No. Patient's initial sepsis screen is negative. Care prior to arrival: None. 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 LMP N/A - Hysterectomy aa5 Historical: - Allergies: 11:37 Adhesives; aa5 11:37 Aspirin; aa5 11:37 Bactrim; aa5 11:37 Benadryl; aa5 11:37 Ciprofloxacin; aa5 11:37 Clindamycin; aa5 11:37 Codeine; aa5 11:37 Detrol; aa5 11:37 GABAPENTIN; aa5 11:37 Iodine; aa5 11:37 Latex, Natural Rubber; aa5 11:37 Morphine; aa5 11:37 PENICILLINS; aa5 11:37 Seroquel; aa5 11:37 Sulfa (Sulfonamide Antibiotics); aa5 11:37 tramadol; aa5 - Home Meds: 11:56 Abilify 10 mg Oral tab 1 tab once daily [Active]; Abilify 5 mg Oral tab 1 tab nightly tw2 [Active]; albuterol sulfate 1.25 mg/3 mL Inhl nebu 3 mL 3 times per day [Active]; Ambien 10 mg Oral tab 1 tab nightly [Active]; benztropine 1 mg Oral tab 1 tab [Active]; Breo Ellipta 100-25 mcg/dose inhalation dsdv 1 puff once daily [Active]; buspirone 15 mg Oral tab 1 tab 2 times per day [Active]; Coreg 25 mg Oral tab 1 tab 2 times per day [Active]; Daliresp 500 mcg Oral tab 1 tab once daily [Active]; digoxin 125 mcg Oral tab 1 tab once daily [Active]; Effexor XR 150 mg Oral cp24 1 cap once daily [Active]; Eliquis 5 mg Oral tab 1 tab daily [Active]; esomeprazole magnesium 40 mg Oral cpDR 1 cap once daily [Active]; isosorbide dinitrate 30 mg Oral tab 1 tab daily [Active]; Keppra 1,000 mg Oral tab 1 tab every 12 hours [Active]; levothyroxine 125 mcg tab 1 tab once daily [Active]; loratadine 10 mg Oral tab 1 tab once daily [Active]; meclizine 25 mg Oral tab 1 tab 4 times per day [Active]; Nexium 40 mg Oral cpDR 1 cap once daily [Active]; ProAir HFA 90 mcg/actuation inhalation HFAA 2 puffs QID PRN [Active]; Ranexa 500 mg Oral Tb12 1 tab 2 times per day [Active]; Spiriva with HandiHaler 18 mcg inhalation CpDv 1 cap once daily [Active]; Topamax 100 mg Oral tab 2 tabs 2 times per day [Active]; venlafaxine 150 mg Oral cp24 1 cap once daily [Active]; Xanax 0.25 mg Oral tab 1 tab PRN [Active]; - PMHx: 11:37 Anxiety; Back pain; internal heart monitor; Bronchitis; Hypertension; Asthma; aa5 HYPOGLYCEMIA; Hypothyroidism; Kidney stones; mitral valve prolapse; Myocardial infarction; neuropathy; Pacemaker; Seizures; sick sinus syndrome; Upper Resp Infection; TIA; - PSHx: 11:37 Cholecystectomy; Hysterectomy; pacemaker; aa5 - Immunization history:: Flu vaccine is not up to date. - Social history:: Smoking status: Patient/guardian denies using tobacco. - Ebola Screening: : No symptoms or risks identified at this time. Screenin:56 Abuse screen: Denies threats or abuse. Nutritional screening: No deficits noted. tw2 Tuberculosis screening: No symptoms or risk factors identified. Fall Risk None identified. Assessment: 11:45 General: Appears in no apparent distress. Behavior is appropriate for age. Pain: Denies tw2 pain. Neuro: Level of Consciousness is awake, alert, obeys commands. Neuro: Reports numbness since last night at 930 pm, went to [place] ER pt reports slurred speech. Cardiovascular: Heart tones S1 S2 Patient's skin is warm and dry. Respiratory: Airway is patent Respiratory effort is even, unlabored, Respiratory pattern is regular, symmetrical, Breath sounds are clear bilaterally. GI: No signs and/or symptoms were reported involving the gastrointestinal system. : No signs and/or symptoms were reported regarding the genitourinary system. EENT: No signs and/or symptoms were reported regarding the EENT system. Derm: No signs and/or symptoms reported regarding the dermatologic system. Musculoskeletal: Circulation, motion, and sensation intact. Reports numbness in left arm and left leg. 13:29 Reassessment: Patient appears in no apparent distress at this time. No changes from tw2 previously documented assessment. Patient and/or family updated on plan of care and expected duration. Pain level reassessed. Patient is alert, oriented x 3, equal unlabored respirations, skin warm/dry/pink. 14:14 Reassessment: Patient appears in no apparent distress at this time. No changes from tw2 previously documented assessment. Patient and/or family updated on plan of care and expected duration. Pain level reassessed. Patient is alert, oriented x 3, equal unlabored respirations, skin warm/dry/pink. 15:00 Reassessment: Patient appears in no apparent distress at this time. No changes from tw2 previously documented assessment. Patient and/or family updated on plan of care and expected duration. Pain level reassessed. Patient is alert, oriented x 3, equal unlabored respirations, skin warm/dry/pink. 16:02 Reassessment: Patient appears in no apparent distress at this time. No changes from tw2 previously documented assessment. Patient and/or family updated on plan of care and expected duration. Pain level reassessed. Patient is alert, oriented x 3, equal unlabored respirations, skin warm/dry/pink. Vital Signs: 11:38 BP 122 / 91; Pulse 104; Resp 18 S; Temp 98.0(TE); Pulse Ox 100% on R/A; Weight 51.26 kg aa5 (R); Height 4 ft. 9 in. (144.78 cm) (R); Pain 0/10; 13:29 BP 111 / 74; Pulse 98; Resp 17; Pulse Ox 98% on R/A; tw2 14:13 BP 105 / 83; Pulse 89; Resp 17; Pulse Ox 97% on R/A; tw2 15:00 BP 100 / 79; Pulse 97; Resp 17; Pulse Ox 99% on R/A; tw2 16:01 BP 96 / 72; Pulse 100; Resp 17; Pulse Ox 99% on R/A; tw2 16:40 BP 102 / 76; Pulse 94; Resp 17; Pulse Ox 99% on R/A; tw2 11:38 Body Mass Index 24.45 (51.26 kg, 144.78 cm) aa5 NIH Stroke Scale Scores: 13:01 NIHSS Score: 1 cp ED Course: 11:23 Patient arrived in ED. mr 11:24 OOT, OOT is Private Physician. mr 11:32 Arm band placed on. aa5 11:35 Triage completed. aa5 11:42 Alberta Nieto, LAUREL is Primary Nurse. tw2 11:43 Bed in low position. Call light in reach. tw2 12:09 Caio Briones PA is PHCP. cp 12:10 Caio Aceves MD is Attending Physician. cp 12:36 XRAY Chest (1 view) In Process Unspecified. EDMS 12:56 Urine collected: clean catch specimen, clear, EKG done. Missed attempt(s): 20 gauge in mh5 right antecubital area. 13:05 Inserted saline lock: 24 gauge in left hand, using aseptic technique. Blood collected. tw2 13:13 CT Head Brain wo Cont In Process Unspecified. EDMS 14:47 Awaiting: attempted to call report was told the nurse was busy and would have to call tw2 me back. 16:41 No provider procedures requiring assistance completed. Patient admitted, IV remains in tw2 place. Administered Medications: 15:01 Drug: foLIC Acid 1 mg Route: IVPB; Site: left hand; tw2 15:02 Follow up: Response: No adverse reaction; IV Status: Completed infusion tw2 15:02 Follow up: Response: No adverse reaction tw2 15:02 Drug: NS 0.9% 1000 ml Route: IV; Rate: 1 bolus; Site: left hand; tw2 16:41 Follow up: IV Status: Infusion continued upon transfer tw2 15:02 Drug: PlaVIX 75 mg Route: PO; tw2 15:03 Follow up: Response: No adverse reaction tw2 Outcome: 14:40 ER care complete, transfer ordered by . cp 16:41 Transferred by ground EMS to [facility]. tw2 16:41 Condition: stable 16:41 Instructed on the need for admit. 16:42 Patient left the ED. tw2 NIH Stroke Scale - NIH Stroke Score Date: 08/17/2018 Time: 13:01 Total Score = 1 1a. Level of Consciousness (LOC) - 0(Alert) 1b. Level of Consciousness (LOC) (Year \\T\\ Age) - 0(Both) 1c. LOC Commands (Open \\T\\ Closes Eyes/Credit Rating Inspector) - 0(Both) 2. Best Gaze (Lateral Gaze Paresis) - 0(Normal) 3. Visual Field Loss - 0(No visual loss) 4. Facial Palsy - 0(Normal) 5a. Left Arm: Motor (10-second hold) - 0(No drift) 5b. Right Arm: Motor (10-second hold) - 0(No drift) 6a. Left Leg: Motor (5-second hold - always test supine) - 0(No drift) 6b. Right Leg: Motor (5-second hold - always test supine) - 0(No drift) 7. Limb Ataxia (finger/nose \\T\\ heel/briggs - test with eyes open) - 0(Absent) 8. Sensory Loss (pinprick arms/legs/face) - 1(Mild to moderate loss) 9. Best Language: Aphasia (description/naming/reading) - 0(No aphasia) 10. Dysarthria (speech clarity - read or repeat words) - 0(Normal) 11. Extinction and Inattention (visual/tactile/auditory/spatial/personal) - 0(No abnormality) Initials: cp Signatures: Dispatcher [employer] Ailyn Roldan Audri, RN RN aa5 Caio Briones PA PA cp Wise, Tara, RN RN tw2 Lyndsay Rodriguez 5 Corrections: (The following items were deleted from the chart) 11:38 11:32 Presenting complaint: Patient states: "The whole left side of my body is aa5 numb and it started last night". pt states "I am also having trouble speaking". Pt c/o numbness to left leg, left arm, and left side of face. Pt reports being seen at [facility] last night for same complaint and diagnosed with sinus infection. aa5
[2018-08-17] MEDS ORDERED: CLOPIDOGREL 75 MG TABLET ONE (15:02)
[2018-08-17] MEDS ORDERED: NA CHLORIDE 0.9% 1,000 ML ONE (15:02)
[2018-08-17] MEDS ORDERED: FOLIC ACID 5 MG/ML VIAL ONE (15:03)
[2018-08-17 17:14] VITALS: TEMP 98
[2018-08-17 17:18] VITALS: O2SAT 99
[2018-08-17 17:21] VITALS: BP 102/76
--- NOTE | 2018-08-18 07:04 | EKG ---
Test Date: 2018-08-17 Test Time: 12:38:51 [place] Working Supervisor: FERNANDEZ MEASUREMENT RESULTS: Intervals: Rate: 99 NJ: 146 QRSD: 88 QT: 344 QTc: 441 [place]: P: 36 NJ: 146 QRS: 26 T: 48 INTERPRETIVE STATEMENTS: Normal sinus rhythm Normal ECG Compared to ECG 12/25/2017 02:26:35 Sinus tachycardia no longer present Electronically Signed On 08-18-18 07:03:02 [employer] by Mack Ulrich
== END 2018-08-17 16:42 | disposition short-term general hospital (02) ==
LOC: ER 11:19
DX: R53.1 Weakness (principal); I10 Essential (primary) hypertension; E03.9 Hypothyroidism, unspecified; I25.2 Old myocardial infarction; F41.9 Anxiety disorder, unspecified; Z95.0 Presence of cardiac pacemaker; G40.909 Epilepsy, unspecified, not intractable, without status epilepticus; Z88.0 Allergy status to penicillin; Z88.1 Allergy status to other antibiotic agents; Z88.2 Allergy status to sulfonamides; Z88.3 Allergy status to other anti-infective agents; Z88.6 Allergy status to analgesic agent; Z88.8 Allergy status to other drugs, medicaments and biological substances; Z91.040 Latex allergy status; Z91.048 Other nonmedicinal substance allergy status
CPT/HCPCS: 36415; 70450; 71045; 80048; 80076; 81003; 81025; 83735; 83880; 84484; 85025; 85610; 93005; 96361; 96374; 99285; J7030

== ENCOUNTER 2018-09-05 14:04 | Emergency (ER) | payer MEDICAID ==
--- OUTSIDE RECORDS SUMMARY | 2018-09-05 14:07 | XMS REPORT | Clinical Summary ---
:1980 Author Organization [facility] Address [address] [place] [address] Care Team Providers Name Role Phone Diya Mora MD Primary Care Provider Allergies Active Allergy Reactions Severity Noted Date Comments Adhesive Tape Rash Low 08/17/2018 Can use papertape. Sulfamethoxazole-Trimetho Anaphylaxis High 08/17/2018 prim Diphenhydramine Hcl Nausea And Vomiting 08/17/2018 Ciprofloxacin 08/17/2018 Muscle aches. Clindamycin Rash Low 08/17/2018 Codeine 08/17/2018 Disorientation, confusion Tolterodine Rash Low 08/17/2018 Gabapentin Shortness Of Breath, High 08/17/2018 Rash Iodine And Iodide Rash High 08/17/2018 Containing Products Latex Rash Low 08/17/2018 blisters Morphine Anaphylaxis High 08/17/2018 Penicillins Anaphylaxis High 08/17/2018 Quetiapine 08/17/2018 confusion Sulfa (Sulfonamide Rash Low 08/17/2018 Antibiotics) Cefixime Rash Low 08/17/2018 Tramadol Rash Low 08/17/2018 Medications Medication Sig Dispensed Refills Start Date End Date Status ARIPiprazole Take 10 mg by 0 Active (ABILIFY) 10 MG mouth daily. disintegrating tablet ARIPiprazole Take 5 mg by 0 Active (ABILIFY) 5 MG mouth nightly. tablet albuterol (ACCUNEB) Take 1 ampule by 0 Active 1.25 mg/3 mL nebulization 3 nebulizer solution (three) times daily. ALPRAZolam (XANAX) Take 0.25 mg by 0 Active 0.25 MG tablet mouth daily as needed for Anxiety. benztropine Take 1 mg by 0 Active (COGENTIN) 1 MG mouth daily as tablet needed. fluticasone-vilante Inhale 1 puff by 0 Active rol (BREO ELLIPTA) mouth via inhaler 100-25 mcg/dose daily. DsDv busPIRone (BUSPAR) Take 15 mg by 0 Active 15 MG tablet mouth 2 (two) times daily. benztropine Take 2 mg by 0 Active (COGENTIN) 2 MG mouth 3 (three) tablet times daily as needed. ROFLUMILAST Take 500 mcg by 0 Active ORALIndications: mouth daily. COPD Associated with Chronic Bronchitis digoxin (LANOXIN) Take 125 mcg by 0 Active 0.125 MG tablet mouth daily. venlafaxine Take 150 mg by 0 Active (EFFEXOR-XR) 150 MG mouth daily. 24 hr capsule apixaban (ELIQUIS) Take 5 mg by 0 Active 5 mg Tab tablet mouth daily. levETIRAcetam Take 1,000 mg by 0 Active (KEPPRA) 1000 MG mouth 2 (two) tabletIndications: times daily. epilepsy levothyroxine Take 125 mcg by 0 Active (SYNTHROID, mouth Every LEVOTHROID) 125 MCG morning on an tablet empty stomach. loratadine Take 10 mg by 0 Active (CLARITIN) 10 mg mouth daily. tablet pregabalin (LYRICA) Take 25 mg by 0 Active 25 MG capsule mouth nightly. triamcinolone 2 sprays by Nasal 0 Active (NASACORT) 55 mcg route daily. nasal inhaler esomeprazole Take 40 mg by 0 Active (NEXIUM) 40 MG mouth daily. capsule albuterol HFA Inhale 2 puffs by 0 Active (VENTOLIN HFA) 90 mouth via mcg/actuation inhaler. inhaler ranolazine (RANEXA) Take 500 mg by 0 Active 500 MG 12 hr tablet mouth 2 (two) times daily. tiotropium Inhale 18 mcg by 0 Active (SPIRIVA) 18 mcg mouth via inhaler inhalation capsule daily. topiramate Take 200 mg by 0 Active (TOPAMAX) 100 MG mouth 2 (two) tablet times daily. carvedilol (COREG) Take 25 mg by 0 08/21/20 Discontinued 25 MG tablet mouth 2 (two) 18 times daily with breakfast and dinner. neomycin-polymyxin- Place 3 drops in 0 08/17/20 Discontinued hydrocortisone ear(s) 4 (four) 18 (CORTISPORIN) times daily. 3.5-10,000-1 mg/mL-unit/mL-% otic suspension Active Problems Problem Noted Date Paresthesia of left arm and leg 08/17/2018 Encounters Date Type Specialty Care Team Description 08/17/2018 - Hospital Encounter Cardiology Kenneth Kc, Paresthesia of left arm and leg; 08/21/2018 Antonio Gray MD Arif, Sahar, MD after 09/04/2017 Social History Tobacco Use Types Packs/Day Years Used Date Unknown If Ever Smoked Alcohol Use Drinks/Week oz/Week Comments Yes Sex Assigned at Date Recorded Not on file Job Start Date Occupation Industry Not on file Not on file Not on file Travel History Travel Start Travel End No recent travel history available. Last Filed Vital Signs Vital Sign Reading Time Taken Blood Pressure 90/57 08/21/2018 12:05 PM DIE CASTING MACHINE MAINTAINER Pulse 94 08/21/2018 12:05 PM DIE CASTING MACHINE MAINTAINER Temperature 37 C (98.6 F) 08/21/2018 12:05 PM DIE CASTING MACHINE MAINTAINER Respiratory Rate 17 08/21/2018 12:05 PM DIE CASTING MACHINE MAINTAINER Oxygen Saturation 99% 08/21/2018 12:05 PM DIE CASTING MACHINE MAINTAINER Inhaled Oxygen Concentration 21% 08/19/2018 3:10 AM DIE CASTING MACHINE MAINTAINER Weight 49.9 kg (110 lb) 08/18/2018 12:00 PM DIE CASTING MACHINE MAINTAINER Height 151.1 cm (4' 11.5") 08/18/2018 12:00 PM DIE CASTING MACHINE MAINTAINER Body Mass Index 21.85 08/18/2018 12:00 PM DIE CASTING MACHINE MAINTAINER Plan of Treatment Not on file Procedures Procedure Name Priority Date/Time Associated Comments Diagnosis RHYTHM STRIP - SCAN 08/22/2018 11:10 AM DIE CASTING MACHINE MAINTAINER POCT-GLUCOSE METER Routine 08/21/2018 10:17 Results for this AM DIE CASTING MACHINE MAINTAINER procedure are in the results section. MR BRAIN WITHOUT IV Routine 08/21/2018 9:20 Results for this CONTRAST AM DIE CASTING MACHINE MAINTAINER procedure are in the results section. MR MRA NECK WITHOUT IV Routine 08/21/2018 9:20 Results for this CONTRAST AM DIE CASTING MACHINE MAINTAINER procedure are in the results section. MR MRA HEAD WITHOUT Routine 08/21/2018 9:20 Results for this CONTRAST AM DIE CASTING MACHINE MAINTAINER procedure are in the results section. POCT-GLUCOSE METER Routine 08/20/2018 9:22 Results for this PM DIE CASTING MACHINE MAINTAINER procedure are in the results section. POCT-GLUCOSE METER Routine 08/20/2018 5:54 Results for this PM DIE CASTING MACHINE MAINTAINER procedure are in the results section. POCT-GLUCOSE METER Routine 08/20/2018 12:34 Results for this PM D[employer] CA[employer]ING MACHINE MAINTAINER procedure are in the results section. XR CHEST 1 VIEW STAT 08/20/2018 11:52 Results for this PORTABLE/BEDSIDE AM DIE [employer]ING MACHINE MAINTAINER procedure are in the results section. POCT-GLUCOSE METER Routine 08/20/2018 9:00 Results for this AM DIE CASTING MACHINE MAINTAINER procedure are in the results section. BASIC METABOLIC PANEL Routine 08/20/2018 6:03 Results for this (7) AM DIE CASTING MACHINE MAINTAINER procedure are in the results section. POCT-GLUCOSE METER Routine 08/19/2018 9:00 Results for this PM DIE CASTING MACHINE MAINTAINER procedure are in the results section. POCT-GLUCOSE METER Routine 08/19/2018 4:57 Results for this PM DIE CASTING MACHINE MAINTAINER procedure are in the results section. ECHOCARDIOGRAM REPORT - 08/19/2018 4:20 SCAN PM DIE CASTING MACHINE MAINTAINER VITAMIN B12 AND FOLATE Routine 08/19/2018 4:44 Results for this AM DIE CASTING MACHINE MAINTAINER procedure are in the results section. BASIC METABOLIC PANEL Routine 08/19/2018 4:44 Results for this (7) AM DIE CASTING MACHINE MAINTAINER procedure are in the results section. 2D ECHO W/ DOPPLER Routine 08/18/2018 5:34 Results for this (CW/PW/COLOR) PM DIE CASTING MACHINE MAINTAINER procedure are in the results section. RPR Routine 08/18/2018 3:44 Results for this AM DIE CASTING MACHINE MAINTAINER procedure are in the results section. TSH/FREE T4 IF Routine 08/18/2018 3:44 Results for this INDICATED AM DIE CASTING MACHINE MAINTAINER procedure are in the results section. CBC (HEMOGRAM ONLY) Routine 08/18/2018 3:44 Results for this AM DIE CASTING MACHINE MAINTAINER procedure are in the results section. LIPID PANEL Routine 08/18/2018 3:44 Results for this AM DIE CASTING MACHINE MAINTAINER procedure are in the results section. HEPATIC FUNCTION PANEL Routine 08/18/2018 3:44 Results for this AM DIE CASTING MACHINE MAINTAINER procedure are in the results section. HEMOGLOBIN A1C Routine 08/18/2018 3:44 Results for this AM DIE CASTING MACHINE MAINTAINER procedure are in the results section. BASIC METABOLIC PANEL Routine 08/18/2018 3:44 Results for this (7) AM DIE CASTING MACHINE MAINTAINER procedure are in the results section. after 09/04/2017 Results RHYTHM STRIP - SCAN (08/22/2018 11:10 AM DIE CASTING MACHINE MAINTAINER) Narrative Performed At POC-Glucose meter (08/21/2018 10:17 AM DIE CASTING MACHINE MAINTAINER)Only the most recent of7 resultswithin the time period is included. POC-Glucose Meter 102Comment: TESTED AT 70 - 110 mg/dL [facility] [address] [facility] [id number] Specimen Blood Performing Organization Address City/State/Zipcode Phone Number [facility] [address] [place] [address] CENTER MR brain without IV contrast (08/21/2018 9:20 AM DIE CASTING MACHINE MAINTAINER) Narrative Performed At FINAL REPORT [facility] [employer] [facility] MRI Brain without contrast Clinical History: Stroke Technique: MRI of the brain utilizing axial T2, FLAIR, GRE, DWI; sagittal and coronal T1-weighted images. Comparisons: None Findings: There is no evidence of acute or chronic infarct or hemorrhage. There are a few scattered nonspecific foci of FLAIR signal abnormality in the subcortical and periventricular white matter. There is no hydrocephalus, midline shift, or apparent mass effect. There are no extra-axial fluid collections. The craniocervical junction is preserved. The major intracranial flow-voids appear patent. There is mucosal disease throughout the paranasal sinuses superimposed air-fluid levels. IMPRESSION: No evidence of infarct, hemorrhage, or hydrocephalus. Acute on chronic pansinusitis. Signed: Santos Neff MD Report Verified Date/Time:08/21/2018 09:25:25 Reading Location: [address] Neuro Reading Room Procedure Note Interface, External Ris In - 08/21/2018 9:49 AM DIE CASTING MACHINE MAINTAINER FINAL REPORT MRI Brain without contrast Clinical History: Stroke Technique: MRI of the brain utilizing axial T2, FLAIR, GRE, DWI; sagittal and coronal T1-weighted images. Comparisons: None Findings: There is no evidence of acute or chronic infarct or hemorrhage. There are a few scattered nonspecific foci of FLAIR signal abnormality in the subcortical and periventricular white matter. There is no hydrocephalus, midline shift, or apparent mass effect. There are no extra-axial fluid collections. The craniocervical junction is preserved. The major intracranial flow-voids appear patent. There is mucosal disease throughout the paranasal sinuses superimposed air-fluid levels. IMPRESSION: No evidence of infarct, hemorrhage, or hydrocephalus. Acute on chronic pansinusitis. Signed: Santos Neff MD Report Verified Date/Time: 08/21/2018 09:25:25 Reading Location: [address] Neuro Reading Room Performing Organization Address City/State/Zipcode Phone Number RIS MRA neck without IV contrast (08/21/2018 9:20 AM DIE CASTING MACHINE MAINTAINER) Narrative Performed At FINAL REPORT [facility] MRA Head CLINICAL HISTORY: Ischemic Stroke TECHNIQUE: MRA of the head utilizing 3-D [id number]-ca-xfwdpv technique, with 3-D reconstructions. COMPARISON: None FINDINGS: There is no evidence of intracranial aneurysm, focal stenosis, or major branch vessel occlusion. IMPRESSION: No evidence for a major [place] proximal branch vessel occlusion. MRA Neck CLINICAL HISTORY: Ischemic Stroke TECHNIQUE: MRA of the neck utilizing 2-D and 3-D jzrz-xs-tvsnzn technique, with 3-D reconstructions. COMPARISON: None FINDINGS: The carotid arteries in the neck are patent including their bifurcations. There is antegrade flow in the vertebral arteries in the neck. IMPRESSION: No evidence of hemodynamically significant stenosis in the cervical carotid or vertebral arteries by NASCET criteria. Signed: Santos Neff MD Report Verified Date/Time:08/21/2018 09:32:09 Reading Location: [address] Neuro Reading Room Procedure Note Interface, External Ris In - 08/21/2018 9:48 AM DIE CASTING MACHINE MAINTAINER FINAL REPORT MRA Head CLINICAL HISTORY: Ischemic Stroke TECHNIQUE: MRA of the head utilizing 3-D sapp-jj-hroqyy technique, with 3-D reconstructions. COMPARISON: None FINDINGS: There is no evidence of intracranial aneurysm, focal stenosis, or major branch vessel occlusion. IMPRESSION: No evidence for a major [place] of [place] proximal branch vessel occlusion. MRA Neck CLINICAL HISTORY: Ischemic Stroke TECHNIQUE: MRA of the neck utilizing 2-D and 3-D lsvk-yx-hkjxoa technique, with 3-D reconstructions. COMPARISON: None FINDINGS: The carotid arteries in the neck are patent including their bifurcations. There is antegrade flow in the vertebral arteries in the neck. IMPRESSION: No evidence of hemodynamically significant stenosis in the cervical carotid or vertebral arteries by NASCET criteria. Signed: Santos Neff MD Report Verified Date/Time: 08/21/2018 09:32:09 Reading Location: [address] Neuro Reading Room Performing Organization Address City/State/Zipcode Phone Number RIS MRA head without IV contrast (08/21/2018 9:20 AM DIE CASTING MACHINE MAINTAINER) Narrative Performed At FINAL REPORT [facility] MRA Head CLINICAL HISTORY: Ischemic Stroke TECHNIQUE: MRA of the head utilizing 3-D ttrd-us-hjqcgx technique, with 3-D reconstructions. COMPARISON: None FINDINGS: There is no evidence of intracranial aneurysm, focal stenosis, or major branch vessel occlusion. IMPRESSION: No evidence for a major k[place] of [place] proximal branch vessel occlusion. MRA Neck CLINICAL HISTORY: Ischemic Stroke TECHNIQUE: MRA of the neck utilizing 2-D and 3-D tpxu-bu-dljllh technique, with 3-D reconstructions. COMPARISON: None FINDINGS: The carotid arteries in the neck are patent including their bifurcations. There is antegrade flow in the vertebral arteries in the neck. IMPRESSION: No evidence of hemodynamically significant stenosis in the cervical carotid or vertebral arteries by NASCET criteria. Signed: Santos Neff MD Report Verified Date/Time:08/21/2018 09:32:09 Reading Location: [address] Neuro Reading Room Procedure Note Interface, External Ris In - 08/21/2018 9:48 AM DIE CASTING MACHINE MAINTAINER FINAL REPORT MRA Head CLINICAL HISTORY: Ischemic Stroke TECHNIQUE: MRA of the head utilizing 3-D npmd-jv-ahjmho technique, with 3-D reconstructions. COMPARISON: None FINDINGS: There is no evidence of intracranial aneurysm, focal stenosis, or major branch vessel occlusion. IMPRESSION: No evidence for a major k[place] of [place] proximal branch vessel occlusion. MRA Neck CLINICAL HISTORY: Ischemic Stroke TECHNIQUE: MRA of the neck utilizing 2-D and 3-D pgjb-hd-lrgzdh technique, with 3-D reconstructions. COMPARISON: None FINDINGS: The carotid arteries in the neck are patent including their bifurcations. There is antegrade flow in the vertebral arteries in the neck. IMPRESSION: No evidence of hemodynamically significant stenosis in the cervical carotid or vertebral arteries by NASCET criteria. Signed: Santos Neff MD Report Verified Date/Time: 08/21/2018 09:32:09 Reading Location: [facility] B1 [id number] Neuro Reading Room Performing Organization Address City/[facility] Phone Number [facility] RIS XR chest 1 view portable / bedside (08/20/2018 11:52 AM DIE CASTING MACHINE MAINTAINER) Narrative Performed At FINAL REPORT [facility] RAD, CHEST, 1 VIEW, NON DEPT INDICATION: To Locate Heart Device (Pacemaker) COMPARISON: Prior day's exam FINDINGS: Portable frontal view of the chest. IMPRESSION: Support Lines: Right subclavian approach pacer with grossly appropriate positioning of the lead wires. Lungs and pleura: Lungs are clear. No effusion. No pneumothorax. Heart and mediastinum: Unremarkable. Additional findings: None. Signed: JR Garcia Robert MD Report Verified Date/Time:08/20/2018 12:04:06 Reading Location: [facility] Radiology Reading Room Procedure Note Interface, External Ris In - 08/20/2018 12:53 PM DIE CASTING MACHINE MAINTAINER FINAL REPORT RAD, CHEST, 1 VIEW, NON DEPT INDICATION: To Locate Heart Device (Pacemaker) COMPARISON: Prior day's exam FINDINGS: Portable frontal view of the chest. IMPRESSION: Support Lines: Right subclavian approach pacer with grossly appropriate positioning of the lead wires. Lungs and pleura: Lungs are clear. No effusion. No pneumothorax. Heart and mediastinum: Unremarkable. Additional findings: None. Signed: JR Garcia Robert MD Report Verified Date/Time: 08/20/2018 12:04:06 Reading Location: [facility] Radiology Reading Room Performing Organization Address City/[facility]/Zipcode Phone Number GE RIS Basic metabolic panel (08/20/2018 6:03 AM DIE CASTING MACHINE MAINTAINER)Only the most recent of3 resultswithin the time period is included. Sodium 140 136 - 145 meq/L [facility] Potassium 4.0 3.5 - 5.1 meq/L [facility] Chloride 108 (H) 98 - 107 meq/L [facility] CO2 25 22 - 29 meq/L [facility] BUN 11 7 - 21 mg/dL [facility] Creatinine 0.69 0.57 - 1.25 mg/dL [facility] Glucose 94 70 - 105 mg/dL [facility] Calcium 9.5 8.4 - 10.2 mg/dL [facility] EGFR 96Comment: ESTIMATED GFR IS mL/min/1.73 sq m [facility] NOT ACCURATE CREATININE [facility] CLEARANCE IN PREDICTING GLOMERULAR FILTRATION RATE. ESTIMATED GFR IS NOT APPLICABLE FOR DIALYSIS PATIENTS. Specimen Blood Performing Organization Address City/[facility] Cent[facility] Phone Number [address] [address] [place] ECHOCARDIOGRAM REPORT - SCAN (08/19/2018 4:20 PM DIE CASTING MACHINE MAINTAINER) Narrative Performed At Vitamin B12 and Folate (08/19/2018 4:44 AM DIE CASTING MACHINE MAINTAINER) Vitamin B12 524 213 - 816 pg/mL [facility] Folate 13.5 >=7.0 ng/mL [facility] Specimen Blood - Arm, Left Performing Organization Address City/[facility] Cent[facility]ode Phone Number [address] [address] [place] 2D Echo W/Doppler(CW/PW/Color) (08/18/2018 5:34 PM DIE CASTING MACHINE MAINTAINER) Ejection Fraction [facility] Narrative Performed At Transthoracic Echocardiography Report (TTE) [facility] Demographics Patient Name HARSH JENNI Date of Study 08/18/2018 SALMA [id number] GenderFemale Visit Number [id number] Unknown [id number] Room Number 2443 Number Date of Birth1980Referring Physician Antonio CHAUDHARI Age38 year(s)Information Consultant Rocío Koenig [facility] Rylee Brennan Physician Procedure Type of Study TTE procedure:2DECHO W DOPPLER(CW/PW/COLOR) (Routine) Indications:Suspected hypertensive heart disease. Clinical History HGB 12.9 HCT 39.8 % Contrast Medium: Bubble Study. Height: 59 inches Weight: 49.9 kg (110 lbs) BSA: 1.43 m^2 BMI: 22.22 kg/m^2 HR: 98 bpm BP: 114/55 mmHg Summary 1. Normal LV size and function. lVEF is 55-60% 2. Diastology: Unable to comment in the presence of tachycardia 3. Normal RV size and function 4. No significant valvular heart disease 5. Mild TR. Estimated PASP is 20-25 mm Hg 6. No pericardial effusion 7. No evidence of right to left shunting after the injection of agitated saline at rest or with the Valsalva maneuver Previous Study No prior exam available for comparison. Signature Findings Rhythm/BPSinus tachycardia during the exam. Left Ventricle The left ventricle is chamber size (by PSLAX di mension) is normal (female - LVIDd 3.8-5.2cm) . No rmal LV wall thickness. All of the LV segments co ntract normally . Global LV systolic function no rmal . Estimated LVEF by qualitative assessment is normal (55-60%) .Diastology: Unable to comment in the presence of tachycardia Normal (cardiac in dex 2-3 L/min/m2) cardiac output state at rest is no aida. Left AtriumLA size is normal (16-34 ml/m2) . Right VentricleThe right ventricular chamber size and systolic fu nction are within normal limits. RV pacing wire is visualized . Right Atrium RA cavity size is normal . RA pacing wire is visualized . Atrial SeptumIV saline contrast injection was negative for a PFO (p atent foramen ovale) at rest and post Valsalva . Aortic Valve Normal AoV structure and function. Mitral Valve The submitral apparatus appears mildly thickened . Mi ld focal MV leaflet thickening. Mi ld mitral regurgitation. Tricuspid ValveMild tricuspid regurgitation. Es timated peak systolic PA pressure is 20-25 mmHg . Pulmonic Valve PV is not well visualized; function appears normal by Doppler visualized. AortaAortic root size (SInus of Valsalva diameter) is no rmal . Proximal ascending aorta size is normal . PericardiumNo pericardial effusion is visualized. IVC/SVC/PA/PV/PleuralThe right upper pulmonary vein (RUPV) is normal . Th e estimated RA pressure by IVC dynamics 0-5mmHg . Chambers/Structures Left Atrium LA Volume: 34.01 ml LA Area: 13.82 cm^2 LA Vol. Index: 24 ml/m^2 Left Ventricle LVIDd: 3.88 cm LV Septum Diastolic: 0.7 cm LV PW Diastolic: 0.74 cm LVEDV Kaufman's:54.53 ml LVESV Kaufman's:24.57 ml LVEF Kaufman's: 54.9 % LVEDVI: 38 ml/m^2 LVESVI: 17 ml/m^2 LVOT Diameter: 1.8 cm Right Atrium RA Vol. (Sngl Plane): 16.66 ml Right Ventricle TAPSE: 2.08 cm Aorta Ao Root S of Joanie.: 2.54 cmAscending Aorta: 2.58 cm Doppler/Quantitative Measurements Mitral Valve MV Peak E-Wave: 0.6 m/s MV Peak A-Wave: 0.89 m/s E/A Ratio: 0.67 Peak Gradient: 1.44 mmHg Deceleration Time: 107.2 msec MV Alf. Peak: Tissue Doppler E' Lateral Velocity: 0.13 m/s E/E': 4.52 LVOT Peak Velocity: 1.09 m/s Peak Gradient: 4.78 mmHg Mean Velocity: 0.77 m/s Mean Gradient: 2.66 mmHg LVOT Diameter: 1.8 cm LVOT VTI: 17.58 cm LVOT Area: 2.54 cm^2LVOT SV:44.71 ml LVOT CO: 4.38 l/min LVOT CI: 3.06 l/min/m^2 Tricuspid Valve TR Velocity: 2.05 m/s TR Gradient: 16.82 mmHg Procedure Note Interface, External Ris In - 08/19/2018 3:36 PM DIE CASTING MACHINE MAINTAINER Transthoracic Echocardiography Report (TTE) Demographics Patient Name JENNI HOUSE Date of Study 08/18/2018 SALMA Gender Female Visit Number [id number] Race Unknown Room Number 2443 Number Date of 1980 Referring Physician Antonio CHAUDHARI Age 38 year(s) Information Consultant Rocío Koenig [facility] Resin Maker Prakash Jo Interpreting Physician CHAVA Bejarano Procedure Type of Study TTE procedure:2DECHO W DOPPLER(CW/PW/COLOR) (Routine) Indications:Suspected hypertensive heart disease. Clinical History HGB 12.9 HCT 39.8 % Contrast Medium: Bubble Study. Height: 59 inches Weight: 49.9 kg (110 lbs) BSA: 1.43 m^2 BMI: 22.22 kg/m^2 HR: 98 bpm BP: 114/55 mmHg Summary 1. Normal LV size and function. lVEF is 55-60% 2. Diastology: Unable to comment in the presence of tachycardia 3. Normal RV size and function 4. No significant valvular heart disease 5. Mild TR. Estimated PASP is 20-25 mm Hg 6. No pericardial effusion 7. No evidence of right to left shunting after the injection of agitated saline at rest or with the Valsalva maneuver Previous Study No prior exam available for comparison. Signature Findings Rhythm/BP Sinus tachycardia during the exam. Left Ventricle The left ventricle is chamber size (by PSLAX dimension) is normal (female - LVIDd 3.8-5.2cm) . Normal LV wall thickness. All of the LV segments contract normally . Global LV systolic function normal . Estimated LVEF by qualitative assessment is normal (55-60%) .Diastology: Unable to comment in the presence of tachycardia Normal (cardiac index 2-3 L/min/m2) cardiac output state at rest is noted. Left Atrium LA size is normal (16-34 ml/m2) . Right Ventricle The right ventricular chamber size and systolic function are within normal limits. RV pacing wire is visualized . Right Atrium RA cavity size is normal . RA pacing wire is visualized . Atrial Septum IV saline contrast injection was negative for a PFO (patent foramen ovale) at rest and post Valsalva . Aortic Valve Normal AoV structure and function. Mitral Valve The submitral apparatus appears mildly thickened . Mild focal MV leaflet thickening. Mild mitral regurgitation. Tricuspid Valve Mild tricuspid regurgitation. Estimated peak systolic PA pressure is 20-25 mmHg . Pulmonic Valve PV is not well visualized; function appears normal by Doppler visualized. Aorta Aortic root size (SInus of Valsalva diameter) is normal . Proximal ascending aorta size is normal . Pericardium No pericardial effusion is visualized. IVC/SVC/PA/PV/Pleural The right upper pulmonary vein (RUPV) is normal . The estimated RA pressure by IVC dynamics 0-5mmHg . Chambers/Structures Left Atrium LA Volume: 34.01 ml LA Area: 13.82 cm^2 LA Vol. Index: 24 ml/m^2 Left Ventricle LVIDd: 3.88 cm LV Septum Diastolic: 0.7 cm LV PW Diastolic: 0.74 cm LVEDV Kaufman's:54.53 ml LVESV Kaufman's:24.57 ml LVEF Kaufman's: 54.9 % LVEDVI: 38 ml/m^2 LVESVI: 17 ml/m^2 LVOT Diameter: 1.8 cm Right Atrium RA Vol. (Sngl Plane): 16.66 ml Right Ventricle TAPSE: 2.08 cm Aorta Ao Root S of Joanie.: 2.54 cm Ascending Aorta: 2.58 cm Doppler/Quantitative Measurements Mitral Valve MV Peak E-Wave: 0.6 m/s MV Peak A-Wave: 0.89 m/s E/A Ratio: 0.67 Peak Gradient: 1.44 mmHg Deceleration Time: 107.2 msec MV Alf. Peak: Tissue Doppler E' Lateral Velocity: 0.13 m/s E/E': 4.52 LVOT Peak Velocity: 1.09 m/s Peak Gradient: 4.78 mmHg Mean Velocity: 0.77 m/s Mean Gradient: 2.66 mmHg LVOT Diameter: 1.8 cm LVOT VTI: 17.58 cm LVOT Area: 2.54 cm^2 LVOT SV:44.71 ml LVOT CO: 4.38 l/min LVOT CI: 3.06 l/min/m^2 Tricuspid Valve TR Velocity: 2.05 m/s TR Gradient: 16.82 mmHg Performing Organization Address [facility] Phone Number [facility] ECHO HEARTLAB MKCKESSON CPACS TSH/Free T4 If Indicated (08/18/2018 3:44 AM DIE CASTING MACHINE MAINTAINER) TSH 3.18 0.35 - 4.94 uIU/mL [facility] Specimen Blood Performing Organization Address [facility] Phone Number [address] [address] CENTER RPR (08/18/2018 3:44 AM DIE CASTING MACHINE MAINTAINER) RPR Nonreactive Nonreactive [facility] Specimen Blood Performing Organization Address [facility] Phone Number [address] [address] [place] CBC (Hemogram only) (08/18/2018 3:44 AM DIE CASTING MACHINE MAINTAINER) WBC 5.7 3.5 - 10.5 K/L [facility] RBC 4.44 3.93 - 5.22 M/L [facility] Hemoglobin 12.9 11.2 - 15.7 GM/DL [facility] Hematocrit 39.8 34.1 - 44.9 % [facility] MCV 89.6 79.4 - 94.8 fL [facility] MCH 29.1 25.6 - 32.2 pg [facility] MCHC 32.4 32.2 - 35.5 GM/DL [facility] RDW 12.6 11.7 - 14.4 % [facility] Platelets 210 150 - 450 K/CU MM [facility] MPV 10.3 9.4 - 12.3 fL [facility] nRBC 0 0 - 0 /100 WBC [facility] Specimen Blood Performing Organization Address City/State/Zipcode Phone Number [address] [address] CENTER Hemoglobin A1c (08/18/2018 3:44 AM DIE CASTING MACHINE MAINTAINER) Hemoglobin A1C 5.3 4.3 - 6.1 % [facility] Specimen Blood Performing Organization Address City/State/Zipcode Phone Number [address] [address] [place] Hepatic function panel (08/18/2018 3:44 AM DIE CASTING MACHINE MAINTAINER) Protein, Total 6.9Comment: Specimen 6.0 - 8.3 gm/dL [facility] slightly hemolyzed [facility] [place] Albumin 3.8Comment: Specimen 3.5 - 5.0 g/dL [facility] slightly hemolyzed [facility] Total Bilirubin 0.3Comment: Specimen 0.2 - 1.2 mg/dL [facility] slightly hemolyzed [facility] Bilirubin, Direct 0.1Comment: Specimen 0.1 - 0.5 mg/dL [facility] slightly hemolyzed [facility] [place] Alkaline Phosphatase 95 40 - 150 U/L [facility] AST 20Comment: Specimen 5 - 34 U/L [facility] hemolyzed [facility] ALT 13Comment: Specimen 6 - 55 U/L [facility] Spec[facility] Blood Performing Organization Address [facility] Phone Number [phone] [place] [address] [place] Lipid panel (08/18/2018 3:44 AM DIE CASTING MACHINE MAINTAINER) Triglycerides 121Comment: Specimen slightly mg/dL [facility] Cholesterol 172Comment: Specimen slightly mg/dL [facility] HDL 36 mg/dL [facility] LDL Calculated 112 mg/dL [facility] Specimen Blood Narrative Performed At Triglyceride Reference Range: [facility] Low Risk <150 [id number] High Risk 200-499 Very High Risk>=500 Cholesterol Reference Range: Low Risk <200 [id number] High Risk>240 HDL Cholesterol Reference Range: Low Risk >=60 High Risk <40 LDL Cholesterol Reference Range: Optimal<100 Near [id number] Very High >=190 Performing Organization Address City/State/Zipcode Phone Number [facility] [address] [place] [address] [place] after 09/04/2017 Insurance Payer Benefit Plan / Group Subscriber ID Type Phone Address [employer] MEDICAID [place]ER xxxxxxxxx (Home) [address] [place] [id number] Advance Directives For more information, please contact:[address] [phone] Code Status Date Activated Date Inactivated Comments Full Code 08/17/2018 7:42 PM This code status was determined by: Patient
--- OUTSIDE RECORDS SUMMARY | 2018-09-05 14:07 | XMS REPORT | Clinical Summary ---
:1980 Author Organization [facility] Address [address] [place] [address] Care Team Providers Name Role Phone Unavailable Primary Care Provider Unavailable Allergies No Known Allergies Medications Medication Sig Dispensed Refills Start Date End Date Status ARIPiprazole (ABILIFY) Take 10 mg by 0 Active 10 MG tablet mouth daily. ARIPiprazole (ABILIFY) 5 Take 5 mg by 0 Active MG tablet mouth daily. benztropine (COGENTIN) 1 Take 1 mg by 0 Active MG tablet mouth 2 (two) times a day. busPIRone (BUSPAR) 10 MG Take 15 mg by 0 Active tablet mouth 3 (three) times a day. digOXIN (LANOXIN) 125 Take 125 mcg by 0 Active mcg tablet mouth daily. Active Problems Not on file Encounters Date Type Specialty Care Team Description 09/04/2018 Emergency Emergency Medicine Kiersten Hurd Chest pain, unspecified MD Fritz type (Primary Dx) after 09/04/2017 Social History Tobacco Use Types Packs/Day Years Used Date Former Smoker Smokeless Tobacco: Never Used Alcohol Use Drinks/Week oz/Week Comments No Alcohol Habits Answer Date Recorded How often do you have a drink containing alcohol? Never 09/04/2018 How many drinks containing alcohol do you have on a typical Not asked day when you are drinking? How often do you have six or more drinks on one occasion? Not asked Sex Assigned at Date Recorded Not on file Job Start Date Occupation Industry Not on file Not on file Not on file Travel History Travel Start Travel End No recent travel history available. Last Filed Vital Signs Vital Sign Reading Time Taken Blood Pressure 113/74 09/04/2018 5:48 PM PROCESS TECH Pulse 135 09/04/2018 5:48 PM PROCESS TECH Temperature 36.7 C (98 F) 09/04/2018 5:48 PM PROCESS TECH Respiratory Rate 18 09/04/2018 5:48 PM PROCESS TECH Oxygen Saturation 96% 09/04/2018 5:48 PM PROCESS TECH Inhaled Oxygen Concentration - - Weight - - Height 149.9 cm (4' 11") 09/04/2018 6:00 PM PROCESS TECH Body Mass Index - - Plan of Treatment Health Maintenance Due Date Last Done Comments CERVICAL CANCER SCREENING 2002 INFLUENZA VACCINE 04/25/2018 HEPATITIS B VACCINES Aged Out No longer eligible based on patient's age to complete this topic IPV VACCINES Aged Out No longer eligible based on patient's age to complete this topic MENINGOCOCCAL VACCINE Aged Out No longer eligible based on patient's age to complete this topic Procedures Procedure Name Priority Date/Time Associated Diagnosis Comments ECG 12-LEAD STAT 09/04/2018 6:02 PM Results for this PROCESS TECH procedure are in the results section. after 09/04/2017 Results ECG 12 lead (09/04/2018 6:02 PM PROCESS TECH) Ventricular rate 106 [facility] Atrial rate 106 [facility] HI interval 120 [facility] QRSD interval 86 [facility] QT interval 326 [facility] QTC interval 433 [facility] P axis 1 55 [facility] QRS axis 1 55 [facility] T wave axis 50 [facility] EKG impression Sinus tachycardia-Otherwise normal [facility] MUSE ECG-- Narrative Performed At Performing Organization Address City/State/Zipcode Phone Number [facility] [address] [place] [address] after 09/04/2017 Advance Directives Patient has advance care planning documents on file. For more information, please contact:Beny Ortiz[address] [place] [address]
--- OUTSIDE RECORDS SUMMARY | 2018-09-05 14:08 | XMS REPORT | Continuity of Care Document ---
:1980 Author Organization [facility] Address [address] [place] [address] Phone Unavailable Care Team Providers Name Role Phone SILVERIO VELAZQUEZ MD Primary Care Physician Insurance Providers Guarantor Jenni Rivera Address [address] [place] [address] Email [email or web address] Policy Number [id number] Subscriber's Name Jenni Rivera Relationship Self / Same As Patient Group Number [id number] Group Name NA Advance Directives Directive Response Recorded Date/Time Advance Directives No 03/30/16 11:24am Advance Directive on File No 08/28/18 8:54pm Directive to Physicians/Living Will No 03/30/16 11:24am Health Care Proxy No 03/30/16 11:24am Name of Surrogate/Decision Maker POA--FATHER 08/28/18 8:54pm Organ Donor No 03/30/16 11:24am Medical Power of Sales Special Agent No 03/30/16 11:24am Patient/Family Given Education Material R/T Y - ..AW 08/28/18 8:54pm Directives? 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 accident Infected dental carries Unknown Acute Infected pacemaker Unknown Nonspecific chest pain Unknown Acute Open chest wound Unknown Seizure disorder Unknown Acute Past Problems Medical Problem Onset Date Status Cervical radiculopathy Unknown Acute Chest wall pain Unknown Acute Chest wall pain following surgery Unknown Acute Contusion of left shoulder, initial encounter Unknown Acute Edema of left lower extremity Unknown Acute Muscle spasm Unknown Acute Nausea Unknown Acute Pain of left scapula Unknown Acute Postoperative cellulitis of surgical wound Unknown Acute Rash and other nonspecific skin eruption Unknown Acute Strain, cervical Unknown Acute TIA (transient ischemic attack) Unknown Acute Medications Current Home Medications Medication Dose Units Route Directions Days Qty Instructions Start Date Albuterol Hfa * 1 Puff RESPIRATORY Rt-Every 4 (Proair Hfa 90 (INHALATION) Hours Mcg/Act *) Aer Apixaban * 5 Mg ORAL Twice A Day (Eliquis *) 5 Mg Tab Aripiprazole 5 Mg ORAL Every Evening (Abilify) 5 Mg Tab Aripiprazole 10 Mg ORAL Every Morning (Abilify) 10 Mg Tab Benztropine 1 Mg ORAL Daily Mesylate (Cogentin *) 1 Mg Tab Buspirone Hcl 15 Mg ORAL Twice A Day (Buspar *) 15 Mg Tab Carvedilol 25 Mg ORAL Twice Daily (Coreg *) 25 Mg With Meals Tab Esomeprazole Mag 40 Mg ORAL Daily * (Nexium 40 Mg *) 40 Mg Cap Fluticasone 1 Inh Mapped To Daily Furoate-Vilanter Inh, Do Not ol (Breo Use Ellipta) 1 Inh Inh Isosorbide 30 Mg ORAL Daily Dinitrate (Isosorbide Dinitrate 30 Mg*) 30 Mg Tab Levetiracetam 1,000 Mg ORAL Twice A Day (Keppra 500 Mg*) 500 Mg Tab Levothyroxine 125 Mcg ORAL Daily Sodium (Synthroid 125 Mcg*) 125 Mcg Tab Loratadine 10 Mg ORAL Once Daily (Loratadine 10 Mg *) 10 Mg Tab Ranolazine 500 Mg ORAL Twice A Day (Ranexa Er 500 Mg*) 500 Mg Tab Roflumilast * 500 Mcg ORAL Once Daily (Daliresp *) 500 Mcg Tab Solifenacin 10 Mg ORAL Daily (Vesicare 10 Mg*) 10 Mg Tab Topiramate 100 Mg ORAL Twice A Day (Topiramate 100 Mg (Topamax) *) 100 Mg Tab Triamcinolone 1 [place] NASAL Daily Acetonide (Nasal (Nasacort Allergy 24HR Chi) 55 Mcg/Act Spr Venlafaxine Hcl 150 Mg ORAL Daily (Effexor Xr 150 Mg *) 150 Mg Cap Zolpidem 10 Mg ORAL At Bedtime As Tartrate Needed (Ambien*) 10 Mg Tab Past Home Medications Medication Directions Ordered Status Apixaban * (Eliquis *) 5 Mg Tab, 5 Daily Discontinued Mg Oral Aripiprazole (Abilify) 10 Mg Tab, Every Morning Discontinued 10 Mg Oral Carvedilol (Coreg *) 12.5 Mg Tab, Twice A Day Discontinued 12.5 Mg Oral Estradiol (Estrace 2 Mg *) 2 Mg Daily Discontinued Tab, 2 Mg Oral Gabapentin (Neurontin 100 Mg *) Once Daily Discontinued 100 Mg Cap, 100 Mg Oral Ketorolac Tromethamine (Toradol 10 Every 6 Hours As Needed for 08/31/17 Discontinued Mg*) 10 Mg Tab, 1 Tab Oral Pain Levetiracetam (Keppra 500 Mg*) 500 Twice A Day Discontinued Mg Tab, 500 Mg Oral Levothyroxine Sodium (Synthroid 88 Daily Discontinued Mcg*) 88 Mcg Tab, 88 Mcg Oral Metoclopramide Hcl (Reglan 5 Mg*) Daily Discontinued 5 Mg Tab, 5 Mg Oral Mometasone Furoate/Formoterol 200 Twice A Day Discontinued Mcg * (Dulera 200 Mcg/5 Mcg *) 1 Aer Aer, 2 Puff Oral Montelukast Sodium (Singulair *) Daily Discontinued 10 Mg Tab, 10 Mg Oral Naproxen Sodium (Anaprox Ds *) 550 Twice A Day Discontinued Mg Tab, 550 Mg Oral Norethindrone Acetate (Aygestin*) Daily Discontinued 5 Mg Tab, 5 Mg Oral Prednisone (Prednisone 10 Mg *) 10 Once Daily Discontinued Mg Tab, 10 Mg Oral Renaxa , 300 Mg Oral Twice A Day Discontinued Tizanidine Hcl (Zanaflex 4 Mg) 4 Daily Discontinued Mg Cap, 4 Mg Oral Tramadol Hcl (Ultram 50 Mg*) 50 Mg Every 4 Hours As Needed Discontinued Tab, 50 Mg Oral Venlafaxine Hcl (Venlafaxine Hcl Daily Discontinued 225 Mg Er) 225 Mg Tab, 225 Mg Oral Social History Social History Problem Response Recorded Date/Time Onset Date Status Hx Alcohol Use No 10/25/2017 8:29am Not Applicable Not Applicable Hx Physical Abuse No 08/28/2018 8:54pm Not Applicable Not Applicable Smoking Status Start Date Stop Date Former smoker Hospital Discharge Instructions No hospital discharge instruction information available. Plan of Care Discharge Date 08/29/18 12:17am Instructions/Education Provided Cervical Radiculopathy, Jxak-yh-Horo Prescriptions See Medication Section Referrals SILVERIO VELAZQUEZ MD Address: [address] [place] [address] [address] [place] [address] Additional Instructions/Education Recommend that you take the Naprosen 500 mg 2 times daily for the next several days until your symptoms have gone away. Also can take the Medrol Dose Juliocesar to help improved your symptoms. If youdo not see improvement in the next few days, recommend seeing your primary doctor for consideration to perform MRI of your neck to check for nerve root impingement or other radicular problem. Otherwise return to the ED if your condition worsens. Functional Status No functional status information available. Allergies, Adverse Reactions, Alerts Allergen Type Severity Reaction Status Last Updated Aspirin ([id number]) Allergy Severe ANAPHYLAXIS Active 01/19/16 Clindamycin ([id number]) Allergy Unknown RASH Active 01/04/18 Codeine (J8817794835) Allergy Severe Active 10/31/17 Diphenhydramine (L7801855090) Allergy Unknown Active 10/31/17 Hydrocodone (M7699540339) Allergy Unknown RASH Active 10/31/17 Iodine (W6976815347) Allergy Severe Active 10/31/17 Morphine (N2159303574) Allergy Severe RASH Active 10/31/17 Sodium Benzoate (O4693111770) Allergy Unknown Active 10/31/17 Sulfamethoxazole w/Trimethoprim Allergy Severe Active 10/31/17 (L8651013084) Ciprofloxacin Allergy Severe MUSCLE ACHES Active 10/31/17 Cefixime (G9656116778) Allergy Unknown Active 10/31/17 Gabapentin (J4212229021) Allergy Unknown NAUSEA Active 01/04/18 Tramadol (V5544793169) Allergy Severe Active 10/31/17 Quetiapine (W7303802599) Allergy Severe Active 01/19/16 Tolterodine (Z8951934306) Allergy Intermediate RASH Active 01/19/16 Latex (N2066880566) Allergy Mild RASH Active 01/19/16 Penicillins (G4272177382) Allergy Severe ANAPHYLAXIS Active 01/19/16 Sulfa Antibiotics (W3934689241) Allergy Intermediate RASH Active 01/19/16 ADHESIVE Allergy Mild RASH Active 03/20/14 Immunizations No immunization information available. Vital Signs Acute Vital Signs Vital Response Date/Time Blood Pressure 118/76 mm Hg 08/29/2018 12:17am Pulse Pulse Rate (adult) 102 beats per minute (60 - 100) 08/29/2018 12:17am Respiratory Rate 15 breaths per minute (10 - 24) 08/29/2018 12:17am Temperature Source Oral 08/29/2018 12:17am Height 4 ft 10.5 in 08/28/2018 8:54pm Weight 115 lb 08/28/2018 8:54pm Body Mass Index 23.6 kg/m^2 08/28/2018 8:54pm Results Laboratory Results Test Name Result Units Flags Reference Collection Result Comments Date/Time Date/Time White Blood Count 7.8 K/ul 4.0-11.5 08/28/2018 08/28/2018 9:25pm 9:36pm Red Blood Count 4.61 M/ul 3.80-5.20 08/28/2018 08/28/2018 9:25pm 9:36pm Hemoglobin 13.9 g/dl 10.5-15.7 08/28/2018 08/28/2018 9:25pm 9:36pm Hematocrit 40.5 % 34.0-50.0 08/28/2018 08/28/2018 9:25pm 9:36pm Mean Corpuscular 87.8 fl 78-98 08/28/2018 08/28/2018 Volume 9:25pm 9:36pm Mean Corpuscular 30.2 pg 26.2-33.4 08/28/2018 08/28/2018 Hemoglobin 9:25pm 9:36pm Mean Corpuscular 34.4 g/dl 31.5-36.2 08/28/2018 08/28/2018 Hemoglobin Concent 9:25pm 9:36pm Red Cell 12.1 % 11.5-15.5 08/28/2018 08/28/2018 Distribution Width 9:25pm 9:36pm Platelet Count 262 K/ul 137-338 08/28/2018 08/28/2018 9:25pm 9:36pm Mean Platelet 7.2 fl L 8.4-11.8 08/28/2018 08/28/2018 Volume 9:25pm 9:36pm Neutrophils (%) 54.7 % 44.4-80.1 08/28/2018 08/28/2018 (Auto) 9:25pm 9:36pm Lymphocytes (%) 33.9 % 10.0-50.0 08/28/2018 08/28/2018 (Auto) 9:25pm 9:36pm Monocytes (%) 6.5 % 3.6-12.04 08/28/2018 08/28/2018 (Auto) 9:25pm 9:36pm Eosinophils (%) 4.0 % 0.0-5.41 08/28/2018 08/28/2018 (Auto) 9:25pm 9:36pm Basophils (%) 0.8 % H 0.0-0.79 08/28/2018 08/28/2018 (Auto) 9:25pm 9:36pm Prothrombin Time 10.1 SECONDS L 10.3-12.3 08/28/2018 08/28/2018 9:25pm 9:45pm THERAPEUTIC LEVEL: 1.5 to 1.9 times normal range of PT Prothromb Time 0.92 08/28/2018 08/28/2018 International 9:25pm 9:45pm Recommended therapeutic range for patients receiving Ratio warfarin (coumadin) therapy: INR is 2.0 to 3.0 Recommended range for patients with mechanical prosthetic heart valves: INR is 2.5 to 3.5 Activated Partial 31.3 SECONDS 22.5-37.0 08/28/2018 08/28/2018 Thromboplast Time 9:25pm 9:45pm Random Glucose 156 mg/dL H 74-106 08/28/2018 08/28/2018 9:25pm 9:48pm Blood Urea 14 mg/dL 6-20 08/28/2018 08/28/2018 Nitrogen 9:25pm 9:48pm Serum Osmolality 289 280-300 08/28/2018 08/28/2018 9:25pm 9:48pm Creatinine 0.8 mg/dL 0.50-0.90 08/28/2018 08/28/2018 9:25pm 9:48pm Glomerular > 60.00 08/28/2018 08/28/2018 GFR RESULTS ARE REPORTED IN mL/min/1.73m2. Filtration Rate 9:25pm 9:48pm Calc Normal GFR: >60mL/min Moderately decreased GFR: 30-59 mL/min Severely decreased GFR: 15-29 mL/min Kidney Failure (or Dialysis): <15 mL/min The calculated eGFR is not valid for patients younger than 18 years or older than 75 years. BUN/Creatinine 17.5 09-1308/28/2018 08/28/2018 Ratio 9:25pm 9:48pm Sodium Level 143 mmol/L 135-145 08/28/2018 08/28/2018 9:25pm 9:48pm Potassium Level 3.4 mmol/L L 3.5-5.2 08/28/2018 08/28/2018 9:25pm 9:48pm Chloride Level 105 mmol/L 98-108 08/28/2018 08/28/2018 9:25pm 9:48pm Carbon Dioxide 27 mmol/L 21-32 08/28/2018 08/28/2018 Level 9:25pm 9:48pm Anion Gap 14.4 mEq/L 09-1308/28/2018 08/28/2018 9:25pm 9:48pm Calcium Level 9.6 mg/dL 8.6-10.0 08/28/2018 08/28/2018 9:25pm 9:48pm Total Protein 7.5 g/dL 6.6-8.7 08/28/2018 08/28/2018 9:25pm 9:48pm Albumin 4.3 g/dL 3.5-5.2 08/28/2018 08/28/2018 9:25pm 9:48pm Globulin 3.2 gm/dL 08/28/2018 08/28/2018 9:25pm 9:48pm Albumin/Globulin 1.3 >1.0 08/28/2018 08/28/2018 Ratio 9:25pm 9:48pm Total Bilirubin < 0.3 mg/dL 0.0-1.2 08/28/2018 08/28/2018 9:25pm 9:48pm Aspartate Amino 17 U/L 15-32 08/28/2018 08/28/2018 Transf (AST/SGOT) 9:25pm 9:48pm Alanine 17 U/L 0-33 08/28/2018 08/28/2018 Aminotransferase 9:25pm 9:48pm (ALT/SGPT) IM-Gmr-E-Type 25 pg/mL 0-125 08/28/2018 08/28/2018 Natriuretic 9:25pm 9:51pm Peptide Total Alkaline 141 U/L H 35-105 08/28/2018 08/28/2018 Phosphatase 9:25pm 9:48pm Creatine Kinase 130 U/L 20-180 08/28/2018 08/28/2018 9:25pm 9:48pm Troponin I < 0.30 ng/mL 0.0-0.5 08/28/2018 08/28/2018 Published clinical studies have shown elevations of cTnI in 9:25pm 9:51pm patients with myocardial injury, as seen in unstable angina pectoris, cardiac contusions, and heart transplants. Elevations have also been seen in patients with rhabdomyolysis and polymyositis. Elevated troponin levels point to myocardial injury, but are not necessarily indicative of an ischemic mechanism. The term SD should be used when there is evidence of cardiac damage, as detected by marker proteins in a clinical setting consistent with myocardial ischemia. If the clinical circumstance suggests that an ischemic mechanism is unlikely, other causes of cardiac injury should be considered. For diagnostic purposes, the results should always be assessed in conjunction with the patient's medical history, clinical examination and other findings. Creatine Kinase MB 3.6 ng/ml 0.0-3.6 08/28/2018 08/28/2018 9:25pm 9:51pm DIAGNOSTIC CITERIA: CKMB CKMB RELATIVE INDEX SUGGESTIVE OF NON-AMI < or=5 N/A BORJA ZONE (INCONCLUSIVE) > 5 < or=4 SUGGESTIVE OF AMI >5 > 4 Procedures Procedure Status Date Provider(s) X-ray of chest, single view Completed 08/28/18 MIYA FLORES Encounters Encounter Location Arrival/Admit Date Discharge/Depart Date Attending Provider Departed Jim 08/28/18 8:50pm 08/29/18 12:17am AUREA MOHAN Emergency [facility] Recent Diagnosis
--- OUTSIDE RECORDS SUMMARY | 2018-09-05 14:08 | XMS REPORT ---
:1980 Author Organization [facility] Address [address] [place] [address] Care Team Providers Name Role Phone MILTONTAMARA CAPELLAN Primary Care Provider Unavailable JOSE GALVEZ Unavailable Unavailable LYLY SUE Unavailable Unavailable Problems This patient has no known problems. Allergies, Adverse Reactions, Alerts This patient has no known allergies or adverse reactions. Medications This patient has no known medications. Encounters Start End Encounter Admission Attending Care Care Encounter Date/Time Date/Time Type Type Clinicians Facility Department ID 2017-09-06 2017-09-08 [id number] 10:12:00 02:32:00 LYLY Results Test Description Test Time Test Comments Text Results Atomic Results Result Comments POCT-GLUCOSE METER 2018-08-21 10:22:00 Test Item Value Reference Range Comments POC-GLUCOSE METER (BEAKER) (test 102 mg/dL 70-110 TESTED AT [facility] [address] [facility] rfzf=[id number]) [facility] [address] MR, MRA, BRAIN, WITHOUT [id number] 09:32:00Reason for exam:-> Ischemic Stroke EvaluationFINAL REPORT MRA Head CLINICAL HISTORY: Ischemic Stroke TECHNIQUE: MRA of the head utilizing 3-D time-of- flight technique, with 3-D reconstructions. COMPARISON: None FINDINGS: There is no evidence of intracranial aneurysm, focal stenosis, or major branch vessel occlusion. IMPRESSION: No evidence for a major [place] proximal branch vessel occlusion. MRA Neck CLINICAL HISTORY: Ischemic Stroke TECHNIQUE : MRA of the neck utilizing 2-D and 3-D kavh-gx-ollgxz technique, with 3-D reconstructions. COMPARISON: None FINDINGS: The carotid arteries in the neck are patent including their bifurcations. There is antegrade flow in the vertebral arteries in the neck. IMPRESSION: No evidence of hemodynamically significant stenosis in the cervical carotid or vertebral arteries by NASCET criteria. Signed: Santos Neff MDReport Verified Date/Time: 08/21/2018 09:32: 09 Reading Location: [address] Neuro Reading Room MR, MRA, NECK, WITHOUT IV [id number] 09:32:00Reason for exam:->Ischemic Stroke EvaluationFINAL REPORT MRA Head CLINICAL HISTORY: Ischemic Stroke TECHNIQUE: MRA of the head utilizing 3-D yauf-xr-mbqerq technique, with 3-D reconstructions. COMPARISON: None FINDINGS: There is no evidence of intracranial aneurysm, focal stenosis, or major branch vessel occlusion. IMPRESSION: No evidence for a major [place] and [place] proximal branch vessel occlusion. MRA Neck CLINICAL HISTORY: Ischemic Stroke TECHNIQUE: MRA of the neck utilizing 2-D and 3-D rrct-qb-mgkdao technique, with 3-D reconstructions. COMPARISON: None FINDINGS: The carotid arteries in the neck are patent including their bifurcations. There is antegrade flow in the vertebral arteries in the neck. IMPRESSION: No evidence of hemodynamically significant stenosis in the cervical carotid or vertebral arteries by NASCET criteria. Signed: Santos Neff MDRiman Verified Date/Time: 08/21/2018 09:32:09 Reading Location: [address] Neuro Reading Room MR, BRAIN, WITHOUT [id number] 09:25: 00Reason for exam:->Ischemic Stroke EvaluationFINAL REPORT MRI Brain without contrast Clinical History: Stroke Technique: MRI of the brain utilizing axial T2, FLAIR, GRE, DWI; sagittal and coronal T1-weighted images. Comparisons: None Findings: There is no evidence of acute or chronic infarct or hemorrhage. There are a fewscattered nonspecific foci of FLAIR signal abnormality in the subcortical and periventricular white matter. There is no hydrocephalus, midline shift, or apparent mass effect. There are no extra- axial fluid collections. The craniocervical junction is preserved. The major intracranial flow-voids appear patent. There is mucosal disease throughout the paranasal sinuses superimposed air-fluid levels. IMPRESSION: No evidence of infarct, hemorrhage, or hydrocephalus. Acute on chronic pansinusitis. Signed: Santos Neff Verified Date/Time: 08/21/2018 09:25:25 Reading Location : [facility] C013V Neuro Reading Room POCT-GLUCOSE [id number] 21:26:00 Test Item Value Reference Range Comments POC-GLUCOSE METER (BEAKER) 119 mg/dL 70-110 TESTED AT [address] (test ucny=9549) [facility] [address] POCT-GLUCOSE [id number] 18:03:00 Test Item Value Reference Range Comments POC-GLUCOSE METER (BEAKER) 119 mg/dL 70-110 TESTED AT [address] (test nrvb=7342) [place] [id number] POCT-GLUCOSE [id number] 12:39:00 Test Item Value Reference Range Comments POC-GLUCOSE METER (BEAKER) 120 mg/dL 70-110 TESTED AT [address] (test iuqn=3688) [facility] [address] RAD, CHEST, 1 VIEW, NON [id number] 12:04:00Reason for exam:->To Locate Heart Device (Pacemaker)Should this be performed at the bedside?->YesFINAL REPORT RAD, CHEST, 1 VIEW, NON DEPT INDICATION: To Locate Heart Device (Pacemaker) COMPARISON: Prior day's exam FINDINGS: Portable frontal view of the chest. IMPRESSION:Support Lines: Right subclavian approach pacer with grossly appropriate positioning of the lead wires. Lungs and pleura: Lungs are clear. No effusion. No pneumothorax.Heart and mediastinum : Unremarkable.Additional findings: None. Signed: JR Garcia Robert MDReport Verified Date/Time: 08/20/2018 12:04:06 [facility] POCT-GLUCOSE [id number] 09:17:00 Test Item Value Reference Range Comments POC-GLUCOSE METER (BEAKER) 121 mg/dL 70-110 TESTED AT [address] (test gwsf=1098) [facility] [address] BASIC METABOLIC [id number] 06:56:00 Test Item Value Reference Range Comments SODIUM (BEAKER) (test 140 meq/L 136-145 ixfd=523) POTASSIUM (BEAKER) (test 4.0 meq/L 3.5-5.1 ezvg=535) CHLORIDE (BEAKER) (test 108 meq/L 98-107 gdue=025) CO2 (BEAKER) (test 25 meq/L 22-29 pkri=550) BLOOD UREA NITROGEN 11 mg/dL 7-21 (BEAKER) (test wqwm=403) CREATININE (BEAKER) (test 0.69 mg/dL 0.57-1.25 rfuz=708) GLUCOSE RANDOM (BEAKER) 94 mg/dL 70-105 (test ksax=121) CALCIUM (BEAKER) (test 9.5 mg/dL 8.4-10.2 jmtt=957) EGFR (BEAKER) (test 96 mL/min/1.73 sq m ESTIMATED GFR IS NOT pnmm=1916) ACCURATE CREATININE CLEARANCE IN PREDICTING GLOMERULAR FILTRATION RATE. ESTIMATED GFR IS NOT APPLICABLE FOR DIALYSIS PATIENTS. POCT-GLUCOSE [id number] 21:09:00 Test Item Value Reference Range Comments POC-GLUCOSE METER (BEAKER) 109 mg/dL 70-110 TESTED AT [address] (test moni=6784) [place] [id number] POCT-GLUCOSE [id number] 17:15:00 Test Item Value Reference Range Comments POC-GLUCOSE METER (BEAKER) 117 mg/dL 70-110 TESTED AT [address] (test zbyc=0984) [place] [address] VITAMIN B12 AND [id number] 06:39:00 Test Item Value Reference Range Comments VITAMIN B12 (BEAKER) (test wlxz=978) 524 pg/mL 213-816 FOLATE (BEAKER) (test xuwb=035) 13.5 ng/mL >=7.0 BASIC METABOLIC [id number] 05:48:00 Test Item Value Reference Range Comments SODIUM (BEAKER) (test 139 meq/L 136-145 ngao=719) POTASSIUM (BEAKER) (test 4.0 meq/L 3.5-5.1 ofbx=522) CHLORIDE (BEAKER) (test 107 meq/L 98-107 uicq=267) CO2 (BEAKER) (test 24 meq/L 22-29 leda=374) BLOOD UREA NITROGEN 11 mg/dL 7-21 (BEAKER) (test bbkz=028) CREATININE (BEAKER) (test 0.72 mg/dL 0.57-1.25 uxuk=936) GLUCOSE RANDOM (BEAKER) 107 mg/dL 70-105 (test qmxm=578) CALCIUM (BEAKER) (test 9.5 mg/dL 8.4-10.2 ewii=544) EGFR (BEAKER) (test 91 mL/min/1.73 sq m ESTIMATED GFR IS NOT yrcf=6394) ACCURATE CREATININE CLEARANCE IN PREDICTING GLOMERULAR FILTRATION RATE. ESTIMATED GFR IS NOT APPLICABLE FOR DIALYSIS PATIENTS. [id number] 15:42:00 Test Item Value Reference Range Comments RPR SCREEN (BEAKER) (test aclx=316) Nonreactive Nonreactive HEMOGLOBIN [id number] 09:14:00 Test Item Value Reference Range Comments HEMOGLOBIN A1C (BEAKER) (test cduh=476) 5.3 % 4.3-6.1 TSH/FREE T4 IF [id number] 04:49:00 Test Item Value Reference Range Comments THYROID STIMULATING HORMONE (BEAKER) (test 3.18 uIU/mL 0.35-4.94 zllq=793) BASIC METABOLIC [id number] 04:38:00 Test Item Value Reference Range Comments SODIUM (BEAKER) (test 139 meq/L 136-145 qtji=494) POTASSIUM (BEAKER) (test 4.2 meq/L 3.5-5.1 Specimen slightly bjfe=462) hemolyzed CHLORIDE (BEAKER) (test 107 meq/L 98-107 ulwc=079) CO2 (BEAKER) (test 26 meq/L 22-29 jaqx=795) BLOOD UREA NITROGEN 10 mg/dL 7-21 (BEAKER) (test jklp=863) CREATININE (BEAKER) (test 0.73 mg/dL 0.57-1.25 Specimen slightly sprm=666) hemolyzed GLUCOSE RANDOM (BEAKER) 104 mg/dL 70-105 (test tuxp=266) CALCIUM (BEAKER) (test 9.7 mg/dL 8.4-10.2 jmad=904) EGFR (BEAKER) (test 90 mL/min/1.73 sq m ESTIMATED GFR IS NOT trlc=5659) ACCURATE CREATININE CLEARANCE IN PREDICTING GLOMERULAR FILTRATION RATE. ESTIMATED GFR IS NOT APPLICABLE FOR DIALYSIS PATIENTS. LIPID [id number] 04:38:00 Test Item Value Reference Range Comments TRIGLYCERIDES (BEAKER) (test 121 mg/dL Specimen slightly hemolyzed ikdo=045) CHOLESTEROL (BEAKER) (test 172 mg/dL Specimen slightly hemolyzed auyl=357) HDL CHOLESTEROL (BEAKER) (test 36 mg/dL ywcn=910) LDL CHOLESTEROL CALCULATED 112 mg/dL (BEAKER) (test gzzs=918) Triglyceride Reference Range: Low Risk <150 Borderline 150- 199 High Risk 200-499 Very High Risk >=500Cholesterol Reference Range: Low Risk <200 Borderline 200-239 High Risk > 240HDL Cholesterol Reference Range: Low Risk >=60 High Risk <40LDL Cholesterol Reference Range: Optimal <100 Near Optimal 100-129 Borderline 130-159 High 160-189 Very High >=190HEPATIC FUNCTION [id number] 04:38:00 Test Item Value Reference Range Comments TOTAL PROTEIN (BEAKER) (test 6.9 gm/dL 6.0-8.3 Specimen slightly hemolyzed eant=963) ALBUMIN (BEAKER) (test 3.8 g/dL 3.5-5.0 Specimen slightly hemolyzed znxn=9192) BILIRUBIN TOTAL (BEAKER) (test 0.3 mg/dL 0.2-1.2 Specimen slightly hemolyzed uskq=141) BILIRUBIN DIRECT (BEAKER) (test 0.1 mg/dL 0.1-0.5 Specimen slightly hemolyzed vcel=285) ALKALINE PHOSPHATASE (BEAKER) 95 U/L 40-150 (test ijvq=694) AST (SGOT) (BEAKER) (test 20 U/L 5-34 Specimen slightly hemolyzed efgj=812) ALT (SGPT) (BEAKER) (test 13 U/L 6-55 Specimen slightly hemolyzed wrgl=523) CBC (HEMOGRAM ONLY)2018-08-18 03:55:00 Test Item Value Reference Range Comments WHITE BLOOD CELL COUNT (BEAKER) (test ybeg=842) 5.7 K/ L 3.5-10.5 RED BLOOD CELL COUNT (BEAKER) (test ensf=344) 4.44 M/ L 3.93-5.22 HEMOGLOBIN (BEAKER) (test iczh=437) 12.9 GM/DL 11.2-15.7 HEMATOCRIT (BEAKER) (test fzzw=887) 39.8 % 34.1-44.9 MEAN CORPUSCULAR VOLUME (BEAKER) (test iqhv=354) 89.6 fL 79.4-94.8 MEAN CORPUSCULAR HEMOGLOBIN (BEAKER) (test 29.1 pg 25.6-32.2 crrs=722) MEAN CORPUSCULAR HEMOGLOBIN CONC (BEAKER) (test 32.4 GM/DL 32.2-35.5 nxjm=298) RED CELL DISTRIBUTION WIDTH (BEAKER) (test 12.6 % 11.7-14.4 scwg=560) PLATELET COUNT (BEAKER) (test jkzo=188) 210 K/CU MM 150-450 MEAN PLATELET VOLUME (BEAKER) (test vfqz=405) 10.3 fL 9.4-12.3 NUCLEATED RED BLOOD CELLS (BEAKER) (test 0 /100 WBC 0-0 tvki=140) AFB Culture and [id number] 13:24:00Specimen/Source: Wound/ PACEMAKERCollected: 09/05/2017 19:45 Status: Final Last Updated: 2017 13:24 OCG-Aptjo-Lxpwqmkfjmiu (Final) (Final) 09/07/17 No acid fast bacill seen on direct smear Culture Result (Final) (Final) 11/01/17 No growth of AFB at six (6) weeksFungus Culture with [id number] 12:12: 00Specimen/Source: Wound/PACEMAKERCollected: 09/05/2017 19:45 Status: Final Last Updated: 10/22/2017 12:12 Fungal Smear Result (Final) (Final) 09/06/17 No yeast or hyphae seen Culture Result (Final) (Final) 10/22/17 No fungus isolated at 6 weeksCulture, Blood [id number] 08:23:00Specimen: BloodCollected: 09/04/2017 20:30 Status: Final Last Updated: 09/10/2017 08: 23 Culture Result (Final) (Final) No Growth After 5 DaysCulture, Blood [id number] 08:23:00Specimen: BloodCollected: 09/04/2017 20:15 Status: Final Last Updated: 09/10/2017 08:23 Culture Result (Final) (Final) No Growth After 5 DaysCulture, Wound [id number] 08:52:00Specimen: WoundCollected: 09/05/2017 19:45 Status: Final Last Updated: 09/08/2017 08: 52 Gram Stain (Final) (Final) 09/06/17 No organisms seen, Few WBC's Culture Result (Final) (Final) 09/08/17 Anaerobic culture:No anaerobes isolated at 3 days Isolate (Final) (Final) 09/07/17Few Staph-coag positive Isolate Staph-coag positive JERMAINE (mcg/ml) Amoxicillin/Clav (AUG)<=4/2 Susceptible Ampicillin (AM) >8 Resistant Ampicillin/Sulb (A/S) <=8/4 Susceptible Cefazolin (CFZ) <=4 Susceptible Ceftriaxone (FLOUR WORKER) <=4 Susceptible Chloramphenicol (C) <=8 Susceptible Ciprofloxacin (CP) <=1 Susceptible Clindamycin (CM) 0.5 Susceptible Erythromycin (E) <=0.25 Susceptible Gentamicin (GM) <=1 Susceptible Imipenem (IMP) <=4 Susceptible Levofloxacin (LEV) <=0.5 Susceptible Linezolid (LNZ) 4 Susceptible Oxacillin (OX1) 0.5 Susceptible Penicillin (P) >8 Resistant Rifampin ( RA) <=1 Susceptible Tetracycline (TE) <=1 Susceptible Trimethoprim/Sulfa <=0.5/9.Susceptible (SXT) 5 Vancomycin (VA) 2 SusceptibleRenal [id number] 08:51: 00 Test Item Value Reference Range Comments Sodium (test code=NA) 139 mmol/L 135-145 Potassium (test code=K) 4.5 mmol/L 3.5-5.1 Chloride (test code=CL) 103 mmol/L 98-105 Carbon Dioxide (test 20 mmol/L 22-29 code=CO2) Glucose (test code=GLU) 101 mg/dL 70-115 Blood Urea Nitrogen 5 mg/dL 6-20 (test code=BUN) Creatinine (test 0.6 mg/dL 0.5-0.9 code=CREAT) Calcium (test code=CA) 8.8 mg/dL 8.3-10.5 Albumin (test code=ALB) 3.6 g/dL 3.5-5.2 Phosphorus (test 3.4 mg/dL 2.70-4.50 code=PO4) BUN/Creatinine Ratio 8.3 (test code=BCRATIO) Anion Gap (test 16 mmol/L 7-16 code=AGAP) Estimated GFR (test >60 [...] race is not provided, and the patient isAfrican-Latvian, multiply by 1.212. If sex is not [...] the National Kidney Foundation,http://nkdep.nih .gov CBC with [id number] 07:39:00 Test Item Value Reference Range Comments [...] Lymph Abs (test code=ALYMPH) 1.7 K/cumm 0.5-4.6 Lander Abs (test code=AMONO) 0.3 K/cumm 0.0-1.2 Eos Abs (test code=AEOS) 0.29 K/cumm 0.00-0.74 Baso Abs (test code=ABASO) 0.0 K/cumm 0.00-0.21 Vancomycin, [id number] 12:33:00 Test Item Value Reference Range Comments Vanco, Trou (test code=VANTR) 7.9 ug/mL 10.0-20.0 Magnesium, [id number] 06:37:00 Test Item Value Reference Range Comments Magnesium (test code=MG) 2.4 mg/dL 1.7-2.5 Renal [id number] 06:29:00 Test Item Value Reference Range Comments [...] race is not provided, and the patient isAfrican-Latvian, multiply by 1.212. If sex is not [...] the National Kidney Foundation,http://nkdep.nih .gov BHCG, Serum, [id number] 06:26:00 Test Item Value Reference Range Comments Preg Qual [Se] (test code=BSHCG) Negative Negative CBC with [id number] 06:24:00 Test Item Value Reference Range Comments [...] Lymph Abs (test code=ALYMPH) 1.6 K/cumm 0.5-4.6 Lander Abs (test code=AMONO) 0.4 K/cumm 0.0-1.2 Eos Abs (test code=AEOS) 0.18 K/cumm 0.00-0.74 Baso Abs (test code=ABASO) 0.0 K/cumm 0.00-0.21 XR CHEST 1 [id number] 16:29:55XR CHEST 1 VIEWLOCATION: [id number]: None.INDICATION: REVIEW PICC LINE PLACEMENTDISCUSSION:AP chest and [...] TSH (test code=TSH) 3.44 mIU/mL 0.270-4.200 Lipid [id number] 05:47:00 Test Item Value Reference Range Comments Cholesterol (test 160 mg/dL 0-200 code=CHOL) Triglycerides (test 126 mg/dL 9-200 code=TRIG) HDL (test code=HDL) 35 mg/dL 50-60 Chol/HDL (test 4.6 Ratio 0.0-4.4 code=CHOLPHDL) LDL, Calculated (test 100 0-130 (NOTE)RISK OF HEART code=LDLC) DISEASEPublished by [place] Heart AssociationAnalyte Optimal Boderline Increased RiskCHOL <200 200-239 >240TRIG <150 150-199 >200HDL Male: >60 <40HDL Female: >60 <50LDL <100 130-159 >160LDL NEAR OPTIMAL IS 100-129 VLDL (test code=VLDL) 25 mg/dL 5-40 LDL/HDL (test code=LDLPHDL) 3 Basic Metabolic [id number] 05:47:00 Test Item Value Reference Range Comments [...] race is not provided, and the patient isAfrican-Latvian, multiply by 1.212. If sex is not provided, and thepatient is female, multiply by 0.742. Results for patients <18 years ofage have not been validated by the MDRD study and should be interpretedwith caution.eGFR Result Interpretation:eGFR > or=60 is in the Normal RangeeGFR < 60 may mean kidney diseaseeGFR < 15 may mean kidney failureRanges recommended by the National Kidney Foundation,http://nkdep.nih .gov Magnesium, [id number] 05:47:00 Test Item Value Reference Range Comments Magnesium (test code=MG) 2.3 mg/dL 1.7-2.5 CBC with [id number] 05:36:00 Test Item Value Reference Range Comments [...] Lymph Abs (test code=ALYMPH) 2.2 K/cumm 0.5-4.6 Lander Abs (test code=AMONO) 0.3 K/cumm 0.0-1.2 Eos Abs (test code=AEOS) 0.24 K/cumm 0.00-0.74 Baso Abs (test code=ABASO) 0.0 K/cumm 0.00-0.21 Partial Thromboplastin [id number] 21:26:00 Test Item Value Reference Range Comments aPTT (test code=PTT) 29.00 seconds 24.39-37.25 Prothrombin [id number] 21:26:00 Test Item Value Reference Range Comments PT (test code=PT) 10.70 seconds 9.78-13.35 INR (test code=INR) 0.95 Ratio 0.6-1.2 Comprehensive Metabolic [id number] 21:23:00 Test Item Value Reference Range Comments [...] race is not provided, and the patient isAfrican-Latvian, multiply by 1.212. If sex is not [...] the National Kidney Foundation,http://nkdep.nih .gov CBC with [id number] 21:16:00 Test Item Value Reference Range Comments [...] Lymph Abs (test code=ALYMPH) 2.2 K/cumm 0.5-4.6 Lander Abs (test code=AMONO) 0.4 K/cumm 0.0-1.2 Eos Abs (test code=AEOS) 0.17 K/cumm 0.00-0.74 Baso Abs (test code=ABASO) 0.1 K/cumm 0.00-0.21
--- OUTSIDE RECORDS SUMMARY | 2018-09-05 14:08 | XMS REPORT | Continuity of Care Document ---
:1980 Author Organization [facility] Address [address] [place] [address] Phone Unavailable Care Team Providers Name Role Phone SILVERIO VELAZQUEZ MD Primary Care Physician Insurance Providers Guarantor Jenni Rivera [address] [place] [id number] Email [email or web address] [email or web address] Policy Number [id number] Subscriber's Name Jenni Rivera Relationship Self / Same As Patient Group Number [id number] Group Name NA Advance Directives Directive Response Recorded Date/Time Advance Directives No 03/30/16 11:24am Advance Directive on File No 09/01/18 7:31pm Directive to Physicians/Living Will No 03/30/16 11:24am Health Care Proxy No 03/30/16 11:24am Name of Surrogate/Decision Maker JAIME RIVERA 09/01/18 8:57pm Organ Donor No 03/30/16 11:24am Medical Power of Trial Manager No 03/30/16 11:24am Patient/Family Given Education Material R/T Y - 09/01/18...MK 09/01/18 8: 57pm Directives? Chief Complaint and Reason for Visit Chief Complaint General Complaint Reason for Visit Neuropathy [id number] Problems Medical Problem Onset Date Status Abdominal [...] Past Problems Medical Problem Onset Date Status Arm pain, diffuse Unknown Acute Cervical radiculopathy Unknown Acute Chest wall pain Unknown Acute Chest wall pain following surgery Unknown Acute Contusion of left shoulder, initial encounter Unknown Acute Edema of left lower extremity Unknown Acute Muscle spasm Unknown Acute Nausea Unknown Acute Neuropathy Unknown Acute Pain of left scapula Unknown [...] Mg Tab Aripiprazole 5 Mg ORAL Every (Abilify) 5 Mg Tab Evening Aripiprazole 10 Mg ORAL Every (Abilify) 10 Mg Morning Tab Atorvastatin 10 Mg ORAL Once Daily Calcium * (Lipitor *) 10 Mg Tab Benztropine 1 Mg ORAL Daily Mesylate (Cogentin *) 1 Mg Tab Buspirone Hcl 15 Mg ORAL Twice A Day (Buspar *) 15 Mg Tab Carvedilol (Coreg 25 Mg ORAL Twice Daily *) 25 Mg Tab With Meals Cyclobenzaprine 10 Mg ORAL Three Times Hcl (Flexeril *) Daily As 10 Mg Tab Needed Esomeprazole Mag * 40 Mg ORAL Daily (Nexium 40 Mg *) 40 Mg Cap Fluticasone 1 Inh Mapped To Daily Furoate-Vilanterol Inh, Do Not (Breo Ellipta) 1 Use Inh Inh Levetiracetam 1,000 Mg ORAL Twice A Day (Keppra 500 Mg*) 500 Mg Tab Levothyroxine 125 Mcg ORAL Daily Sodium (Synthroid 125 Mcg*) 125 Mcg Tab Loratadine 10 Mg ORAL Once Daily (Loratadine 10 Mg *) 10 Mg Tab Naproxen (Naproxen 500 Mg ORAL Every 12 500 Mg) 500 Mg Tab Hours As Needed Ranolazine (Ranexa 500 Mg ORAL Twice A Day Er 500 Mg*) 500 Mg Tab Topiramate 100 Mg ORAL Twice A Day (Topiramate 100 Mg (Topamax) *) 100 Mg Tab Venlafaxine Hcl 150 Mg ORAL Daily (Effexor Xr 150 Mg *) 150 Mg Cap Past Home Medications Medication Directions Ordered Status [...] Discontinued 100 Mg Cap, 100 Mg Oral Isosorbide Dinitrate (Isosorbide Daily Discontinued Dinitrate 30 Mg*) 30 Mg Tab, 30 Mg Oral Ketorolac Tromethamine (Toradol 10 Every [...] 300 Mg Oral Twice A Day Discontinued Roflumilast * (Daliresp *) 500 Mcg Once Daily Discontinued Tab, 500 Mcg Oral Solifenacin (Vesicare 10 Mg*) 10 Daily Discontinued Mg Tab, 10 Mg Oral Tizanidine Hcl (Zanaflex 4 Mg) 4 Daily Discontinued Mg Cap, 4 Mg Oral Tramadol Hcl (Ultram 50 Mg*) 50 Mg Every 4 Hours As Needed Discontinued Tab, 50 Mg Oral Triamcinolone Acetonide (Nasal Daily Discontinued (Nasacort Allergy 24HR Chi) 55 Mcg/Act Spr, 1 [place] Nasal Venlafaxine Hcl (Venlafaxine Hcl Daily Discontinued 225 Mg Er) 225 Mg Tab, 225 Mg Oral Zolpidem Tartrate (Ambien*) 10 Mg At Bedtime As Needed Discontinued Tab, 10 Mg Oral Social History Social History Problem Response Recorded Date/Time Onset Date Status Hx Alcohol Use No 10/25/2017 8:29am Not Applicable Not Applicable Hx Physical Abuse No 09/01/2018 7:31pm Not Applicable Not Applicable Smoking Status Start Date Stop Date Former smoker Hospital Discharge Instructions No hospital discharge instruction information available. Plan of Care Discharge Date 09/01/18 9:12pm Instructions/Education Provided Neuropathic Pain Forms Provided Prescription Opioid Use Portal Welcome Letter Prescriptions See Medication Section Referrals SILVERIO VELAZQUEZ MD Address: [address] [place] [address] [address] [place] [address] Additional Instructions/Education FOLLOW UP WITH NEUROLOGIST NEXT WEEK FLEXERIL IF NEEDED FOR SPASM OR PAIN UP TO EVERY 8 HOURS ( PT STATES HELPS ) TORADOL IF NEEDED FOR PAIN UP TO EVERY 6 HOURS Functional Status No functional status information available. Allergies, Adverse Reactions, Alerts Allergen Type Severity Reaction Status Last Updated Aspirin ([id number]) Allergy Severe ANAPHYLAXIS Active 01/19/16 Clindamycin ([id number]) Allergy Unknown RASH Active 01/04/18 Codeine ([id number]) Allergy Severe Active 10/31/17 Diphenhydramine ([id number]) Allergy Unknown Active 10/31/17 Hydrocodone ([id number]) Allergy Unknown RASH Active 10/31/17 Iodine ([id number]) Allergy Severe Active 10/31/17 Morphine ([id number]) Allergy Severe RASH Active 10/31/17 Sodium Benzoate ([id number]) Allergy Unknown Active 10/31/17 Sulfamethoxazole w/Trimethoprim Allergy Severe Active 10/31/17 ([id number]) Ciprofloxacin Allergy Severe MUSCLE ACHES Active 10/31/17 Cefixime ([id number]) Allergy Unknown Active 10/31/17 Gabapentin ([id number]) Allergy Unknown NAUSEA Active 01/04/18 Tramadol ([id number]) Allergy Severe Active 10/31/17 Quetiapine (F2989311336) Allergy Severe Active 01/19/16 Tolterodine ([id number]) Allergy Intermediate RASH Active 01/19/16 Latex ([id number]) Allergy Mild RASH Active 01/19/16 Penicillins ([id number]) Allergy Severe ANAPHYLAXIS Active 01/19/16 Sulfa Antibiotics ([id number]) Allergy Intermediate RASH Active 01/19/16 ADHESIVE Allergy Mild RASH Active 03/20/14 Immunizations No immunization information available. Vital Signs Acute Vital Signs Vital Response Date/Time Blood Pressure 110/78 mm Hg 09/01/2018 9:14pm Pulse Pulse Rate (adult) 97 beats per minute (60 - 100) 09/01/2018 9:14pm Respiratory Rate 19 breaths per minute (10 - 24) 09/01/2018 9:14pm Temperature Source Oral 09/01/2018 9:14pm Height 4 ft 10.5 in 09/01/2018 7:31pm Weight 117 lb 09/01/2018 7:31pm Body Mass Index 24.0 kg/m^2 09/01/2018 7:31pm Results Laboratory Results Test Name Result Units Flags Reference Collection Result Comments Date/Time Date/Time White Blood Count 8.3 K/ul 4.0-11.5 09/01/2018 09/01/2018 8:10pm 8:16pm Red Blood Count 4.65 M/ul 3.80-5.20 09/01/2018 09/01/2018 8:10pm 8:16pm Hemoglobin 13.9 g/dl 10.5-15.7 09/01/2018 09/01/2018 8:10pm 8:16pm Hematocrit 41.4 % 34.0-50.0 09/01/2018 09/01/2018 8:10pm 8:16pm Mean Corpuscular 88.9 fl 78-98 09/01/2018 09/01/2018 Volume 8:10pm 8:16pm Mean Corpuscular 29.9 pg 26.2-33.4 09/01/2018 09/01/2018 Hemoglobin 8:10pm 8:16pm Mean Corpuscular 33.7 g/dl 31.5-36.2 09/01/2018 09/01/2018 Hemoglobin Concent 8:10pm 8:16pm Red Cell 12.8 % 11.5-15.5 09/01/2018 09/01/2018 Distribution Width 8:10pm 8:16pm Platelet Count 225 K/ul 137-338 09/01/2018 09/01/2018 8:10pm 8:16pm Mean Platelet 7.5 fl L 8.4-11.8 09/01/2018 09/01/2018 Volume 8:10pm 8:16pm Neutrophils (%) 65.8 % 44.4-80.1 09/01/2018 09/01/2018 (Auto) 8:10pm 8:16pm Lymphocytes (%) 23.4 % 10.0-50.0 09/01/2018 09/01/2018 (Auto) 8:10pm 8:16pm Monocytes (%) 5.4 % 3.6-12.04 09/01/2018 09/01/2018 (Auto) 8:10pm 8:16pm Eosinophils (%) 4.6 % 0.0-5.41 09/01/2018 09/01/2018 (Auto) 8:10pm 8:16pm Basophils (%) 0.9 % H 0.0-0.79 09/01/2018 09/01/2018 (Auto) 8:10pm 8:16pm D-Dimer 333 ng/mL <500 09/01/2018 09/01/2018 8:10pm 8:45pm Prothrombin Time 9.9 SECONDS L 10.3-12.3 09/01/2018 09/01/2018 8:10pm 8:33pm THERAPEUTIC LEVEL: 1.5 to 1.9 times normal range of PT Prothromb Time 0.90 09/01/2018 09/01/2018 International 8:10pm 8:33pm Recommended therapeutic range for patients receiving Ratio warfarin (coumadin) therapy: INR is 2.0 to 3.0 Recommended range for patients with mechanical prosthetic heart valves: INR is 2.5 to 3.5 Activated Partial 30.2 SECONDS 22.5-37.0 09/01/2018 09/01/2018 Thromboplast Time 8:10pm 8:54pm Random Glucose 94 mg/dL 74-106 09/01/2018 09/01/2018 8:10pm 8:33pm Blood Urea 14 mg/dL 6-20 09/01/2018 09/01/2018 Nitrogen 8:10pm 8:33pm Serum Osmolality 282 280-300 09/01/2018 09/01/2018 8:10pm 8:33pm Creatinine 0.7 mg/dL 0.50-0.90 09/01/2018 09/01/2018 8:10pm 8:33pm Glomerular > 60.00 09/01/2018 09/01/2018 GFR RESULTS ARE REPORTED IN mL/min/1.73m2. Filtration Rate 8:10pm 8:33pm Calc Normal GFR: >60mL/min Moderately decreased GFR: 30-59 mL/min Severely decreased GFR: 15-29 mL/min Kidney Failure (or Dialysis): <15 mL/min The calculated eGFR is not valid for patients younger than 18 years or older than 75 years. BUN/Creatinine 20.0 09-1309/01/2018 09/01/2018 Ratio 8:10pm 8:33pm Sodium Level 141 mmol/L 135-145 09/01/2018 09/01/2018 8:10pm 8:33pm Potassium Level 3.6 mmol/L 3.5-5.2 09/01/2018 09/01/2018 8:10pm 8:33pm Chloride Level 100 mmol/L 98-108 09/01/2018 09/01/2018 8:10pm 8:33pm Carbon Dioxide 28 mmol/L 21-32 09/01/2018 09/01/2018 Level 8:10pm 8:33pm Anion Gap 16.6 mEq/L 09-1309/01/2018 09/01/2018 8:10pm 8:33pm Calcium Level 9.5 mg/dL 8.6-10.0 09/01/2018 09/01/2018 8:10pm 8:33pm Total Protein 7.6 g/dL 6.6-8.7 09/01/2018 09/01/2018 8:10pm 8:33pm Albumin 4.4 g/dL 3.5-5.2 09/01/2018 09/01/2018 8:10pm 8:33pm Globulin 3.2 gm/dL 09/01/2018 09/01/2018 8:10pm 8:33pm Albumin/Globulin 1.4 >1.0 09/01/2018 09/01/2018 Ratio 8:10pm 8:33pm Total Bilirubin < 0.3 mg/dL 0.0-1.2 09/01/2018 09/01/2018 8:10pm 8:33pm Aspartate Amino 18 U/L 15-32 09/01/2018 09/01/2018 Transf (AST/SGOT) 8:10pm 8:33pm Alanine 16 U/L 0-33 09/01/2018 09/01/2018 Aminotransferase 8:10pm 8:33pm (ALT/SGPT) PB-Bdf-L-Type 114 pg/mL 0-125 09/01/2018 09/01/2018 Natriuretic 8:10pm 8:36pm Peptide Total Alkaline 125 U/L H 35-105 09/01/2018 09/01/2018 Phosphatase 8:10pm 8:33pm Creatine Kinase 104 U/L 20-180 09/01/2018 09/01/2018 8:10pm 8:33pm Troponin I < 0.30 ng/mL 0.0-0.5 09/01/2018 09/01/2018 Published clinical studies have shown elevations of cTnI in 8:10pm 8:36pm patients with myocardial injury, as seen in unstable angina pectoris, cardiac contusions, and heart transplants. Elevations have also been seen in patients with rhabdomyolysis and polymyositis. Elevated troponin levels point to myocardial injury, but are not necessarily indicative of an ischemic mechanism. The term DC should be used when there is evidence [...] examination and other findings. Creatine Kinase MB 2.5 ng/ml 0.0-3.6 09/01/2018 09/01/2018 8:10pm 8:36pm DIAGNOSTIC CITERIA: CKMB CKMB RELATIVE INDEX SUGGESTIVE OF NON-AMI < or=5 N/A BORJA ZONE (INCONCLUSIVE) > 5 < or=4 SUGGESTIVE OF AMI >5 > 4 Procedures Procedure Status Date Provider(s) X-ray of chest, single view Completed 08/28/18 MIYA FLORES X-ray of chest, single view Completed 09/01/18 BRENDAN LINDQUIST MD Encounters Encounter Location Arrival/Admit Date Discharge/Depart Date Attending Provider Departed [place] 09/01/18 7:28pm 09/01/18 9:12pm BRENDAN LINDQUIST [facility] Departed [place] 08/28/18 8:50pm 08/29/18 12:17am AUREA MOHAN [facility] Recent Diagnosis
--- NOTE | 2018-09-05 15:23 | RAD REPORT ---
EXAM DESCRIPTION: RAD - Humerus Right - 09/05/2018 3:16 pm CLINICAL HISTORY: PAIN Fall, pain COMPARISON: Humerus Right dated 04/14/2014 FINDINGS: No fracture or dislocation is seen. Pacer device is noted.
--- NOTE | 2018-09-05 15:44 | ER ---
Nurse's Notes [facility] Name: Jenni Rivera Age: 38 yrs Sex: Female : 1980 Arrival Date: 09/05/2018 Time: 14:06 Bed 25 Private MD: KIARA CRAIG Diagnosis: Pain in right shoulder;Fall on same level from slipping, tripping and stumbling Presentation: 09/05 14:11 Presenting complaint: Patient states: "I tripped and fell onto my right arm around 11 aa5 am today". Pt c/o pain to right upper arm and c/o tingling to R fingers. Care prior to arrival: None. Mechanism of Injury: Fall. 14:11 Acuity: LYUBOV 4 aa5 14:11 Method Of Arrival: Ambulatory aa5 16:14 Transition of care: patient was not received from another setting of care. Onset of tl3 symptoms is unknown. Risk Assessment: Do you want to hurt yourself or someone else?. Initial Sepsis Screen: Does the patient meet any 2 criteria? No. Patient's initial sepsis screen is negative. Does the patient have a suspected source of infection? No. Patient's initial sepsis screen is negative. 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 LMP N/A - Hysterectomy aa5 Historical: - Allergies: 14:13 Adhesives; aa5 14:13 Aspirin; aa5 14:13 Bactrim; aa5 14:13 Benadryl; aa5 14:13 Ciprofloxacin; aa5 14:13 Clindamycin; aa5 14:13 Codeine; aa5 14:13 Detrol; aa5 14:13 GABAPENTIN; aa5 14:13 Iodine; aa5 14:13 Latex, Natural Rubber; aa5 14:13 Morphine; aa5 14:13 PENICILLINS; aa5 14:13 Seroquel; aa5 14:13 Sulfa (Sulfonamide Antibiotics); aa5 14:13 tramadol; aa5 - PMHx: 14:13 Anxiety; Hypothyroidism; Kidney stones; Bronchitis; internal heart monitor; Back pain; aa5 Hypertension; Asthma; HYPOGLYCEMIA; mitral valve prolapse; Myocardial infarction; neuropathy; Pacemaker; Seizures; sick sinus syndrome; TIA; - PSHx: 14:13 Cholecystectomy; Hysterectomy; pacemaker; aa5 - Immunization history:: Adult Immunizations unknown. - Social history:: Smoking status: Patient/guardian denies using tobacco. - Ebola Screening: : No symptoms or risks identified at this time. Screenin:36 Abuse screen: Denies threats or abuse. Nutritional screening: No deficits noted. tl3 Tuberculosis screening: No symptoms or risk factors identified. Fall Risk Fall in past 12 months (25 points). Assessment: 14:36 General: Appears uncomfortable, Behavior is calm, cooperative, appropriate for age. tl3 Pain: Complains of pain in right tricep. Neuro: No deficits noted. Level of Consciousness is awake, alert, obeys commands, Oriented to person, place, time, situation, Appropriate for age. Cardiovascular: Patient's skin is warm and dry. Cardiovascular: Capillary refill < 3 seconds in right fingers. Respiratory: Airway is patent Respiratory effort is even, unlabored, Respiratory pattern is regular, symmetrical. GI: No deficits noted. No signs and/or symptoms were reported involving the gastrointestinal system. : No deficits noted. No signs and/or symptoms were reported regarding the genitourinary system. EENT: No deficits noted. No signs and/or symptoms were reported regarding the EENT system. Derm: No deficits noted. No signs and/or symptoms reported regarding the dermatologic system. Musculoskeletal: Range of motion: limited in right shoulder and right elbow Tenderness present in right bicep and right tricep. 16:12 Reassessment: Patient appears in no apparent distress at this time. No changes from tl3 previously documented assessment. Patient and/or family updated on plan of care and expected duration. Pain level reassessed. Patient is alert, oriented x 3, equal unlabored respirations, skin warm/dry/pink. sling applied. Vital Signs: 14:13 BP 116 / 81; Pulse 103; Resp 18 S; Temp 98.0(TE); Pulse Ox 99% on R/A; Weight 53.52 kg aa5 (R); Height 4 ft. 10 in. (147.32 cm) (R); Pain 9/10; 14:36 BP 100 / 76; Pulse 65; Resp 18; Pulse Ox 100% on R/A; tl3 16:12 BP 99 / 79; Pulse 95; Resp 18; Pulse Ox 99% ; tl3 14:13 Body Mass Index 24.66 (53.52 kg, 147.32 cm) aa5 ED Course: 14:06 Patient arrived in ED. mr 14:06 OOT, OOT is Private Physician. mr 14:12 Triage completed. aa5 14:12 Arm band placed on. aa5 14:18 Marie Gann FNP-C is [facility]. kb 14:18 Tanner Robbins MD is Attending Physician. kb 14:36 Joan Holland, RN is Primary Nurse. tl3 14:36 Patient has correct armband on for positive identification. Bed in low position. Call tl3 light in reach. Adult w/ patient. Pulse ox on. NIBP on. Door closed. Warm blanket given. 14:36 No provider procedures requiring assistance completed. Patient did not have IV access tl3 during this emergency room visit. 15:16 Humerus Right XRAY In Process Unspecified. EDMS Administered Medications: 16:04 Drug: [place] (7.5 mg-325 mg) 1 tabs Route: PO; mg2 16:04 Follow up: Response: No adverse reaction; Medication administered at discharge. mg2 Outcome: 15:43 Discharge ordered by MD. kb 16:14 Discharged to home ambulatory. tl3 16:14 Condition: stable 16:14 Discharge instructions given to patient, Instructed on discharge instructions, follow up and referral plans. Demonstrated understanding of instructions, follow-up care, medications. 16:15 Patient left the ED. tl3 Signatures: Dispatcher [employer] EDMS Marie Gann FNP-C FNP-Kecia Aureliano Ailyn Angeles, Geena, RN RN aa5 Joan Holland, RN RN tl3 Martin Castro RN RN mg2
--- NOTE | 2018-09-05 15:44 | EDPHYS ---
Physician Documentation [facility] Name: Jenni Rivera Age: 38 yrs Sex: Female : 1980 Arrival Date: 09/05/2018 Time: 14:06 Bed 25 Private MD: KIARA CRAIG ED Physician Tanner Robbins HPI: 09/05 15:42 This 38 yrs old Female presents to ER via Ambulatory with complaints of Fall kb Injury. 15:42 Details of fall: The patient fell from an upright position, while walking. Onset: The kb symptoms/episode began/occurred today, at 11:00. Associated injuries: The patient sustained right upper arm, painful injury. Severity of symptoms: At their worst the symptoms were moderate, in the emergency department the symptoms are unchanged. The patient has not experienced similar symptoms in the past. The patient has not recently seen a physician. Pt reports she was walking outside without her cane and fell onto right shoulder.. 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 LMP N/A - Hysterectomy aa5 Historical: - Allergies: 14:13 Adhesives; aa5 14:13 Aspirin; aa5 14:13 Bactrim; aa5 14:13 Benadryl; aa5 14:13 Ciprofloxacin; aa5 14:13 Clindamycin; aa5 14:13 Codeine; aa5 14:13 Detrol; aa5 14:13 GABAPENTIN; aa5 14:13 Iodine; aa5 14:13 Latex, Natural Rubber; aa5 14:13 Morphine; aa5 14:13 PENICILLINS; aa5 14:13 Seroquel; aa5 14:13 Sulfa (Sulfonamide Antibiotics); aa5 14:13 tramadol; aa5 - PMHx: 14:13 Anxiety; Hypothyroidism; Kidney stones; Bronchitis; internal heart monitor; Back pain; aa5 Hypertension; Asthma; HYPOGLYCEMIA; mitral valve prolapse; Myocardial infarction; neuropathy; Pacemaker; Seizures; sick sinus syndrome; TIA; - PSHx: 14:13 Cholecystectomy; Hysterectomy; pacemaker; aa5 - Immunization history:: Adult Immunizations unknown. - Social history:: Smoking status: Patient/guardian denies using tobacco. - Ebola Screening: : No symptoms or risks identified at this time. ROS: 15:40 Constitutional: Negative for fever, chills, and weight loss, Cardiovascular: Negative kb for chest pain, palpitations, and edema, Respiratory: Negative for shortness of breath, cough, wheezing, and pleuritic chest pain, Abdomen/GI: Negative for abdominal pain, nausea, vomiting, diarrhea, and constipation, Skin: Negative for injury, rash, and discoloration, Neuro: Negative for headache, weakness, numbness, tingling, and seizure. 15:40 MS/extremity: Positive for injury or acute deformity, pain, tenderness, of the right bicep and right shoulder. Exam: 15:40 Constitutional: This is a well developed, well nourished patient who is awake, alert, kb and in no acute distress. Head/Face: Normocephalic, atraumatic. Neck: Trachea midline, no thyromegaly or masses palpated, and no cervical lymphadenopathy. Supple, full range of motion without nuchal rigidity, or vertebral point tenderness. No Meningismus. Chest/axilla: Normal chest wall appearance and motion. Nontender with no deformity. No lesions are appreciated. Cardiovascular: Regular rate and rhythm with a normal S1 and S2. No gallops, murmurs, or rubs. Normal PMI, no JVD. No pulse deficits. Respiratory: Lungs have equal breath sounds bilaterally, clear to auscultation and percussion. No rales, rhonchi or wheezes noted. No increased work of breathing, no retractions or nasal flaring. Abdomen/GI: Soft, non-tender, with normal bowel sounds. No distension or tympany. No guarding or rebound. No evidence of tenderness throughout. Skin: Warm, dry with normal turgor. Normal color with no rashes, no lesions, and no evidence of cellulitis. Neuro: Awake and alert, GCS 15, oriented to person, place, time, and situation. Cranial nerves II-XII grossly intact. Motor strength 5/5 in all extremities. Sensory grossly intact. Cerebellar exam normal. Normal gait. 15:40 Musculoskeletal/extremity: Extremities: grossly normal except: noted in the right upper arm: pain, ROM: limited active range of motion due to pain, in the right upper arm, Circulation is intact in all extremities. Sensation intact. Vital Signs: 14:13 BP 116 / 81; Pulse 103; Resp 18 S; Temp 98.0(TE); Pulse Ox 99% on R/A; Weight 53.52 kg aa5 (R); Height 4 ft. 10 in. (147.32 cm) (R); Pain 9/10; 14:36 BP 100 / 76; Pulse 65; Resp 18; Pulse Ox 100% on R/A; tl3 16:12 BP 99 / 79; Pulse 95; Resp 18; Pulse Ox 99% ; tl3 14:13 Body Mass Index 24.66 (53.52 kg, 147.32 cm) aa5 MDM: 14:18 Patient medically screened. kb 15:37 Data reviewed: vital signs, nurses notes. Data interpreted: Pulse oximetry: on room air kb is 100 %. Interpretation: normal. Counseling: I had a detailed discussion with the patient and/or guardian regarding: the historical points, exam findings, and any diagnostic results supporting the discharge/admit diagnosis, radiology results, the need for outpatient follow up, a family practitioner, to return to the emergency department if symptoms worsen or persist or if there are any questions or concerns that arise at home. 09/05 14:29 Order name: Humerus Right XRAY; Complete Time: 15:26 kb 09/05 15:38 Order name: Sling; Complete Time: 16:11 kb Administered Medications: 16:04 Drug: [place] (7.5 mg-325 mg) 1 tabs Route: PO; mg2 16:04 Follow up: Response: No adverse reaction; Medication administered at discharge. mg2 Disposition: 09/05/18 15:43 Discharged to Home. Impression: Pain in right shoulder, Fall on same level from slipping, tripping and stumbling. - Condition is Stable. - Discharge Instructions: Musculoskeletal Pain, Shoulder Pain, [id number]. - Medication Reconciliation Form, Thank You Letter, Antibiotic Education, Prescription Opioid Use form. - Follow up: Emergency Department; When: As needed; Reason: Worsening of condition. Follow up: Private Physician; When: 2 - 3 days; Reason: Recheck today's complaints, Continuance of care, Re-evaluation by your physician. Addendum: 09/11/2018 01:26 Co-signature as Attending Physician, Tanner Robbins MD. r n Signatures: Dispatcher [employer] EDMS Marie Gann, GENERAL MAINTENANCE HELPER-C GENERAL MAINTENANCE HELPER-Ckb Tanner Robbins MD MD rn Calderon, Audri, RN RN aa5 Joan Holland RN RN tl3 Martin Castro RN RN mg2 Corrections: (The following items were deleted from the chart) 09/05 16:15 15:43 09/05/2018 15:43 Discharged to Home. Impression: Pain in right shoulder; Fall on tl3 same level from slipping, tripping and stumbling. Condition is Stable. Forms are Medication Reconciliation Form, Thank You Letter, Antibiotic Education, Prescription Opioid Use. Follow up: Emergency Department; When: As needed; Reason: Worsening of condition. Follow up: Private Physician; When: 2 - 3 days; Reason: Recheck today's complaints, Continuance of care, Re-evaluation by your physician. kb
[2018-09-05] MEDS ORDERED: HYDROCODONE/APAP 7.5/325 MG TAB ONE (16:11)
[2018-09-05 16:28] VITALS: TEMP 98
[2018-09-05 16:31] VITALS: BP 99/79; O2SAT 99
== END 2018-09-05 16:15 | disposition home or self-care (01) ==
LOC: ER 14:04
DX: M25.511 Pain in right shoulder (principal); W01.0XXA Fall on same level from slipping, tripping and stumbling without subsequent striking against object, initial encounter; Y93.01 Activity, walking, marching and hiking; Y92.9 Unspecified place or not applicable; Z88.0 Allergy status to penicillin; Z88.1 Allergy status to other antibiotic agents; Z88.2 Allergy status to sulfonamides; Z88.3 Allergy status to other anti-infective agents; Z88.5 Allergy status to narcotic agent; Z88.6 Allergy status to analgesic agent; Z88.8 Allergy status to other drugs, medicaments and biological substances; Z91.040 Latex allergy status; Z91.048 Other nonmedicinal substance allergy status; Z95.0 Presence of cardiac pacemaker; I10 Essential (primary) hypertension
CPT/HCPCS: 99283

== ENCOUNTER 2019-01-24 21:59 | Emergency (ER) | payer MEDICAID ==
--- OUTSIDE RECORDS SUMMARY | 2019-01-24 22:01 | XMS REPORT | Clinical Summary ---
:1980 Author Organization [facility] Address [address] [place] [address] Care Team Providers Name Role Phone Unavailable [...] unspecified MD Fritz type (Primary Dx) after 01/23/2018 Social History Tobacco Use Types Packs/Day Years [...] Taken Blood Pressure 113/74 09/04/2018 5:48 PM ELECTRICAL EQUIPMENT TESTER Pulse 135 09/04/2018 5:48 PM ELECTRICAL EQUIPMENT TESTER Temperature 36.7 C (98 F) 09/04/2018 5:48 PM ELECTRICAL EQUIPMENT TESTER Respiratory Rate 18 09/04/2018 5:48 PM ELECTRICAL EQUIPMENT TESTER Oxygen Saturation 96% 09/04/2018 5:48 PM ELECTRICAL EQUIPMENT TESTER Inhaled Oxygen Concentration - - Weight - - Height 149.9 cm (4' 11") 09/04/2018 6:00 PM ELECTRICAL EQUIPMENT TESTER Body Mass Index - - Plan of Treatment Health Maintenance Due Date Last Done Comments CERVICAL CANCER SCREENING 2002 INFLUENZA VACCINE 04/25/2019 Procedures Procedure Name Priority Date/Time Associated Diagnosis Comments ECG 12-LEAD STAT 09/04/2018 6:02 PM Results for this ELECTRICAL EQUIPMENT TESTER procedure are in the results section. after 01/23/2018 Results ECG 12 lead (09/04/2018 6:02 PM ELECTRICAL EQUIPMENT TESTER) Ventricular rate 106 [facility] Atrial rate 106 [facility] AL interval 120 [facility] QRSD interval 86 [facility] QT interval 326 [facility] QTC interval 433 [facility] P axis 1 55 [facility] QRS axis 1 55 [facility] T wave axis 50 [facility] EKG impression Sinus tachycardia-Otherwise normal [facility] ECG-- Narrative Performed At Performing Organization Address City/State/Zipcode Phone Number [facility] [place] [address] [place] [address] after 01/23/2018 Advance Directives Patient has advance care planning documents on file. For more information, please contact:Beny Ortiz[address] [place] [address]
--- OUTSIDE RECORDS SUMMARY | 2019-01-24 22:02 | XMS REPORT | Clinical Summary ---
:1980 Author Organization [facility] Address [address] [place] [address] Care Team Providers Name Role Phone Diya [...] Antonio Gray MD Arif, Sahar, MD after 01/23/2018 Social History Tobacco Use Types [...] Taken Blood Pressure 90/57 08/21/2018 12:05 PM BULB PLANTER Pulse 94 08/21/2018 12:05 PM BULB PLANTER Temperature 37 C (98.6 F) 08/21/2018 12:05 PM BULB PLANTER Respiratory Rate 17 08/21/2018 12:05 PM BULB PLANTER Oxygen Saturation 99% 08/21/2018 12:05 PM BULB PLANTER Inhaled Oxygen Concentration 21% 08/19/2018 3:10 AM BULB PLANTER Weight 49.9 kg (110 lb) 08/18/2018 12:00 PM BULB PLANTER Height 151.1 cm (4' 11.5") 08/18/2018 12:00 PM BULB PLANTER Body Mass Index 21.85 08/18/2018 12:00 PM BULB PLANTER Plan of Treatment Not on file Procedures Procedure Name Priority Date/Time Associated Comments Diagnosis ARRYTHMIA IMPLANT 11/12/2018 1:43 REPORT - SCAN PM BULB PLANTER ARRYTHMIA IMPLANT 11/12/2018 1:43 REPORT - SCAN PM BULB PLANTER ARRYTHMIA IMPLANT 11/12/2018 1:43 REPORT - SCAN PM BULB PLANTER RHYTHM STRIP - SCAN 08/22/2018 11:10 AM BULB PLANTER POCT-GLUCOSE METER Routine 08/21/2018 10:17 Results for this AM BULB PLANTER procedure are in the results section. MR BRAIN WITHOUT IV Routine 08/21/2018 9:20 Results for this CONTRAST AM BULB PLANTER procedure are in the results section. MR MRA NECK WITHOUT IV Routine 08/21/2018 9:20 Results for this CONTRAST AM BULB PLANTER procedure are in the results section. MR MRA HEAD WITHOUT Routine 08/21/2018 9:20 Results for this CONTRAST AM BULB PLANTER procedure are in the results section. POCT-GLUCOSE METER Routine 08/20/2018 9:22 Results for this PM BULB PLANTER procedure are in the results section. POCT-GLUCOSE METER Routine 08/20/2018 5:54 Results for this PM BULB PLANTER procedure are in the results section. POCT-GLUCOSE METER Routine 08/20/2018 12:34 Results for this PM BULB PLANTER procedure are in the results section. XR CHEST 1 VIEW STAT 08/20/2018 11:52 Results for this PORTABLE/BEDSIDE AM BULB PLANTER procedure are in the results section. POCT-GLUCOSE METER Routine 08/20/2018 9:00 Results for this AM BULB PLANTER procedure are in the results section. BASIC METABOLIC PANEL Routine 08/20/2018 6:03 Results for this (7) AM BULB PLANTER procedure are in the results section. POCT-GLUCOSE METER Routine 08/19/2018 9:00 Results for this PM BULB PLANTER procedure are in the results section. POCT-GLUCOSE METER Routine 08/19/2018 4:57 Results for this PM BULB PLANTER procedure are in the results section. ECHOCARDIOGRAM REPORT - 08/19/2018 4:20 SCAN PM BULB PLANTER VITAMIN B12 AND FOLATE Routine 08/19/2018 4:44 Results for this AM BULB PLANTER procedure are in the results section. BASIC METABOLIC PANEL Routine 08/19/2018 4:44 Results for this (7) AM BULB PLANTER procedure are in the results section. 2D ECHO W/ DOPPLER Routine 08/18/2018 5:34 Results for this (CW/PW/COLOR) PM BULB PLANTER procedure are in the results section. RPR Routine 08/18/2018 3:44 Results for this AM BULB PLANTER procedure are in the results section. TSH/FREE T4 IF Routine 08/18/2018 3:44 Results for this INDICATED AM BULB PLANTER procedure are in the results section. CBC (HEMOGRAM ONLY) Routine 08/18/2018 3:44 Results for this AM BULB PLANTER procedure are in the results section. LIPID PANEL Routine 08/18/2018 3:44 Results for this AM BULB PLANTER procedure are in the results section. HEPATIC FUNCTION PANEL Routine 08/18/2018 3:44 Results for this AM BULB PLANTER procedure are in the results section. HEMOGLOBIN A1C Routine 08/18/2018 3:44 Results for this AM BULB PLANTER procedure are in the results section. BASIC METABOLIC PANEL Routine 08/18/2018 3:44 Results for this (7) AM BULB PLANTER procedure are in the results section. after 01/23/2018 Results ARRYTHMIA IMPLANT REPORT - SCAN (11/12/2018 1:43 PM BULB PLANTER)Only the most recent of3 resultswithin the time period is included. Narrative Performed At RHYTHM STRIP - SCAN (08/22/2018 11:10 AM BULB PLANTER) Narrative Performed At POC-Glucose meter (08/21/2018 10:17 AM BULB PLANTER)Only the most recent of7 resultswithin the time period is included. POC-Glucose Meter 102Comment: TESTED AT 70 - 110 mg/dL [facility] [address] [facility] [address] Specimen Blood Performing Organization Address City/State/Zipcode Phone Number [address] [address] CENTER MR brain without IV contrast (08/21/2018 9:20 AM BULB PLANTER) Specimen Narrative Performed At FINAL REPORT [facility] MRI Brain without contrast Clinical History: Stroke [...] hydrocephalus. Acute on chronic pansinusitis. Signed: Santos Winn MD Report Verified Date/Time:08/21/2018 09:25:25 Reading Location: [address] Neuro Reading Room Procedure Note Interface, External Ris In - 08/21/2018 9:49 AM BULB PLANTER FINAL REPORT MRI Brain without contrast Clinical [...] hydrocephalus. Acute on chronic pansinusitis. Signed: Santos Winn MD Report Verified Date/Time: 08/21/2018 09:25:25 Reading Location: [address] Neuro Reading Room Performing Organization Address City/State/Zipcode Phone Number [facility] MRA neck without IV contrast (08/21/2018 9:20 AM BULB PLANTER) Specimen Narrative Performed At FINAL REPORT [facility] MRA Head CLINICAL HISTORY: Ischemic Stroke TECHNIQUE: MRA of the head utilizing 3-D przn-mo-bqzjsm technique, with 3-D reconstructions. COMPARISON: None FINDINGS: There is no evidence of intracranial aneurysm, focal stenosis, or major branch vessel occlusion. IMPRESSION: No evidence for a major [place] proximal branch vessel occlusion. MRA Neck CLINICAL HISTORY: Ischemic Stroke TECHNIQUE: MRA of the neck utilizing 2-D and 3-D eenx-zx-ntiqgw technique, with 3-D reconstructions. COMPARISON: None FINDINGS: The carotid arteries in the neck are patent including their bifurcations. There is antegrade flow in the vertebral arteries in the neck. IMPRESSION: No evidence of hemodynamically significant stenosis in the cervical carotid or vertebral arteries by NASCET criteria. Signed: Santos Winn MD Report Verified Date/Time:08/21/2018 09:32:09 Reading Location: [address] Neuro Reading Room Procedure Note Interface, External [facility] In - 08/21/2018 9:48 AM BULB PLANTER FINAL REPORT MRA Head CLINICAL HISTORY: Ischemic Stroke TECHNIQUE: MRA of the head utilizing 3-D xflq-us-fmtino technique, with 3-D reconstructions. COMPARISON: None FINDINGS: There is no evidence of intracranial aneurysm, focal stenosis, or major branch vessel occlusion. IMPRESSION: No evidence for a major [place] proximal branch vessel occlusion. MRA Neck CLINICAL HISTORY: Ischemic Stroke TECHNIQUE: MRA of the neck utilizing 2-D and 3-D ydgt-hi-invhqm technique, with 3-D reconstructions. COMPARISON: None FINDINGS: The carotid arteries in the neck are patent including their bifurcations. There is antegrade flow in the vertebral arteries in the neck. IMPRESSION: No evidence of hemodynamically significant stenosis in the cervical carotid or vertebral arteries by NASCET criteria. Signed: Santos Winn MD Report Verified Date/Time: 08/21/2018 09:32:09 Reading Location: [address] Neuro Reading Room Performing Organization Address City/State/Zipcode Phone Number [facility] MRA head without IV contrast (08/21/2018 9:20 AM BULB PLANTER) Specimen Narrative Performed At FINAL REPORT [facility] MRA Head CLINICAL HISTORY: Ischemic Stroke TECHNIQUE: MRA of the head utilizing 3-D lbvz-ep-gaoutm technique, with 3-D reconstructions. COMPARISON: None FINDINGS: There is no evidence of intracranial aneurysm, focal stenosis, or major branch vessel occlusion. IMPRESSION: No evidence for a major [place] proximal branch vessel occlusion. MRA Neck CLINICAL HISTORY: Ischemic Stroke TECHNIQUE: MRA of the neck utilizing 2-D and 3-D syqj-pl-srjdqg technique, with 3-D reconstructions. COMPARISON: None FINDINGS: The carotid arteries in the neck are patent including their bifurcations. There is antegrade flow in the vertebral arteries in the neck. IMPRESSION: No evidence of hemodynamically significant stenosis in the cervical carotid or vertebral arteries by NASCET criteria. Signed: Santos Winn MD Report Verified Date/Time:08/21/2018 09:32:09 Reading Location: [id number] Neuro Reading Room Procedure Note Interface, External [facility] In - 08/21/2018 9:48 AM BULB PLANTER FINAL REPORT MRA Head CLINICAL HISTORY: Ischemic Stroke TECHNIQUE: MRA of the head utilizing 3-D frnd-pj-avlhpv technique, with 3-D reconstructions. COMPARISON: None FINDINGS: There is no evidence of intracranial aneurysm, focal stenosis, or major branch vessel occlusion. IMPRESSION: No evidence for a major [place] proximal branch vessel occlusion. MRA Neck CLINICAL HISTORY: Ischemic Stroke TECHNIQUE: MRA of the neck utilizing 2-D and 3-D lhad-aq-tbnbcb technique, with 3-D reconstructions. COMPARISON: None FINDINGS: The carotid arteries in the neck are patent including their bifurcations. There is antegrade flow in the vertebral arteries in the neck. IMPRESSION: No evidence of hemodynamically significant stenosis in the cervical carotid or vertebral arteries by NASCET criteria. Signed: Santos Winn MD Report Verified Date/Time: 08/21/2018 09:32:09 Reading Location: [facility] [id number] Neuro Reading Room Performing Organization Address City/State/Zipcode Phone Number [facility] XR chest 1 view portable / bedside (08/20/2018 11:52 AM BULB PLANTER) Specimen Narrative Performed At FINAL REPORT [facility] RAD, CHEST, 1 VIEW, NON DEPT INDICATION: [...] MD Report Verified Date/Time:08/20/2018 12:04:06 Reading Location: [facility] Radiology Reading Room Procedure Note Interface, External Ris In - 08/20/2018 12:53 PM BULB PLANTER FINAL REPORT RAD, CHEST, 1 VIEW, NON [...] Report Verified Date/Time: 08/20/2018 12:04:06 Reading Location: [facility] Radiology Reading Room Performing Organization Address City/[facility]/Zipcode Phone Number RIS Basic metabolic panel (08/20/2018 6:03 AM BULB PLANTER)Only the most recent of3 resultswithin the time period is included. Sodium 140 136 - 145 meq/L [facility] Potassium 4.0 3.5 - 5.1 meq/L [facility] Chloride 108 (H) 98 - 107 meq/L [facility] CO2 25 22 - 29 meq/L [facility] BUN 11 7 - 21 mg/dL [facility] Creatinine 0.69 0.57 - 1.25 mg/dL [facility] Glucose 94 70 - 105 mg/dL [facility] Calcium 9.5 8.4 - 10.2 mg/dL [facility] EGFR 96Comment: ESTIMATED GFR IS mL/min/1.73 sq m [facility] NOT ACCURATE [facility] CLEARANCE IN PREDICTING GLOMERULAR FILTRATION RATE. ESTIMATED GFR IS NOT APPLICABLE FOR DIALYSIS PATIENTS. Specimen Blood Performing Organization Address [facility] Cent[facility]ode Phone Number [address] [address] [phone] CENTER ECHOCARDIOGRAM REPORT - SCAN (08/19/2018 4:20 PM BULB PLANTER) Narrative Performed At Vitamin B12 and Folate (08/19/2018 4:44 AM BULB PLANTER) Vitamin B12 524 213 - 816 pg/mL [facility] Folate 13.5 >=7.0 ng/mL [facility] Specimen Blood Performing Organization Address City/[facility]/Zipcode Phone Number [place] [phone] [place] [address] CENTER 2D Echo W/Doppler(CW/PW/Color) (08/18/2018 5:34 PM BULB PLANTER) Ejection [facility] ECHO [facility] Specimen Narrative Performed At Transthoracic Echocardiography Report (TTE) [facility] ECHO HEARTLAB [facility] Demographics Patient Name JENNI DRAPER Date of Study 08/18/2018 SALMA [id number] GenderFemale Visit Number [id number] Unknown [id number] Room Number 2443 Number Date of Birth1980Referring Physician Antonio CHAUDHARI Age38 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(s)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 Koenig [facility] JametIPhysician CHAVA Lopez Procedure Type of Study TTE procedure:2DECHO W [...] External Ris In - 08/19/2018 3:36 PM BULB PLANTER Transthoracic Echocardiography Report (TTE) Demographics Patient Name HARSH JENNI Date of Study 08/18/2018 SALMA Gender Female Visit Number [id number] Race Unknown Room Number 2443 Number Date of 1980 Referring Physician Antonio CHAUDHARI Age 38 year(s) 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 Specimen Blood Performing Organization Address City/[facility] Cent[facility]ode Phone Number [address] [address] [place] RPR (08/18/2018 3:44 AM BULB PLANTER) RPR Nonreactive Nonreactive [facility] Specimen Blood Performing Organization Address [facility] Centercode Phone Number [address] [address] [place] CBC (Hemogram only) (08/18/2018 3:44 AM BULB PLANTER) WBC 5.7 3.5 - 10.5 K/L [facility] RBC 4.44 3.93 - 5.22 M/L [facility] Hemoglobin 12.9 11.2 - 15.7 GM/DL [facility] Hematocrit 39.8 34.1 - 44.9 % [facility] MCV 89.6 79.4 - 94.[address] [facility] MCH 29.1 25.6 - 32.[address] [facility] MCHC 32.4 32.2 - 35.5 GM/DL [facility] RDW 12.6 11.7 - 14.4 % [facility] Platelets 210 150 - 450 K/CU MM [facility] MPV 10.3 9.4 - 12.[address] [facility] nRBC 0 0 - 0 /[address] [facility] Specimen Blood Performing Organization Address City/State/Zipcode Phone Number [address] [address] CENTER Hemoglobin A1c (08/18/2018 3:44 AM BULB PLANTER) Hemoglobin A1C 5.3 4.3 - 6.1 % [facility] Specimen Blood Performing Organization Address City/[facility]/Zipcode Phone Number [address] [address] [phone] CENTER Hepatic function panel (08/18/2018 3:44 AM BULB PLANTER) Protein, Total 6.9Comment: Specimen 6.0 - 8.3 gm/dL [facility] slightly hemolyzed [facility] Albumin 3.8Comment: Specimen 3.5 - 5.0 g/dL [facility] slightly hemolyzed [facility] Total Bilirubin 0.3Comment: Specimen 0.2 - 1.2 mg/dL [facility] hemolyzed [facility] Bilirubin, Direct 0.1Comment: Specimen 0.1 - 0.5 mg/dL [facility] hemolyzed [facility] Alkaline Phosphatase 95 40 - 150 U/L [facility] AST 20Comment: Specimen 5 - 34 U/L [facility] hemolyzed [facility] ALT 13Comment: Specimen 6 - 55 U/L [facility] hemolyzed [facility] Specimen Blood Performing Organization Address [facility] Centercowi Phone Number [facility] [address] [place] [address] [phone] [place] Lipid panel (08/18/2018 3:44 AM BULB PLANTER) Triglycerides 121Comment: Specimen slightly mg/dL [facility] [place] Cholesterol 172Comment: Specimen slightly mg/dL [facility] HDL 36 mg/dL [facility] LDL Calculated 112 mg/dL [facility] Specimen Blood Narrative Performed At Triglyceride Reference Range: [facility] Low Risk <150 [id number] High Risk 200-499 Very High Risk>=500 Cholesterol Reference Range: Low Risk <200 [id number] High Risk>240 HDL Cholesterol Reference Range: Low Risk >=60 High Risk <40 LDL Cholesterol Reference Range: Optimal<100 Near [id number] Very High >=190 Performing Organization Address City/State/Zipcode Phone Number [facility] [address] [place] [address] [place] after 01/23/2018 Insurance Payer Benefit Plan / Group Subscriber ID Type Phone Address [employer] [place] xxxxxxxxx Advance Directives For more information, please contact:[place] [address] [address] [place], [place] [phone] Code Status Date Activated Date Inactivated Comments Full Code 08/17/2018 7:42 PM This code status was determined by: Patient
--- OUTSIDE RECORDS SUMMARY | 2019-01-24 22:03 | XMS REPORT ---
:1980 Author Organization [facility] Address [address] [place] [address] Care Team Providers Name Role Phone MITLONTAMARA CAPELLAN Primary Care Provider Unavailable JOSE GALVEZ Unavailable Unavailable LYLY SUE Unavailable Unavailable Problems This patient has no known problems. Allergies, Adverse Reactions, Alerts This patient has no known allergies or adverse reactions. Medications This patient has no known medications. Encounters Start End Encounter Admission Attending Care Care Encounter Date/Time Date/Time Type Type Clinicians Facility Department ID 2017-09-06 2017-09-08 Inpatient [facility] [id number] 10:12:00 02:32:00 LYLY Results Test Description Test Time Test Comments Text Results Atomic Results Result Comments POCT-GLUCOSE METER 2018-08-21 10:22:00 Test Item Value Reference Range Comments POC-GLUCOSE METER (BEAKER) (test 102 mg/dL 70-[address] [facility] [address] [facility] [place] geyd=[id number]) [facility] [address] MR, MRA, BRAIN, WITHOUT [id number] 09:32:00Reason for exam:-> Ischemic Stroke EvaluationFINAL REPORT MRA Head CLINICAL HISTORY: Ischemic Stroke TECHNIQUE: MRA of the head utilizing 3-D time-of- flight technique, with 3-D reconstructions. COMPARISON: None FINDINGS: There is no evidence of intracranial aneurysm, focal stenosis, or major branch vessel occlusion. IMPRESSION: No evidence for a major [place] proximal branch vessel occlusion. MRA Neck CLINICAL HISTORY: Ischemic Stroke TECHNIQUE : MRA of the neck utilizing 2-D and 3-D caam-ur-pfhior technique, with 3-D reconstructions. COMPARISON: None FINDINGS: The carotid arteries in the neck are patent including their bifurcations. There is antegrade flow in the vertebral arteries in the neck. IMPRESSION: No evidence of hemodynamically significant stenosis in the cervical carotid or vertebral arteries by NASCET criteria. Signed: Santos Neff MDReport Verified Date/Time: 08/21/2018 09:32: 09 Reading Location: [address] Neuro Reading Room MR, MRA, NECK, WITHOUT IV [id number] 09:32:00Reason for exam:->Ischemic Stroke EvaluationFINAL REPORT MRA Head CLINICAL HISTORY: Ischemic Stroke TECHNIQUE: MRA of the head utilizing 3-D lkxp-jq-ffjcgc technique, with 3-D reconstructions. COMPARISON: None FINDINGS: There is no evidence of intracranial aneurysm, focal stenosis, or major branch vessel occlusion. IMPRESSION: No evidence for a major [place] proximal branch vessel occlusion. MRA Neck CLINICAL HISTORY: Ischemic Stroke TECHNIQUE: MRA of the neck utilizing 2-D and 3-D lsvu-ty-waachu technique, with 3-D reconstructions. COMPARISON: None FINDINGS: The carotid arteries in the neck are patent including their bifurcations. There is antegrade flow in the vertebral arteries in the neck. IMPRESSION: No evidence of hemodynamically significant stenosis in the cervical carotid or vertebral arteries by NASCET criteria. Signed: Santos Neff MDRiman Verified Date/Time: 08/21/2018 09:32:09 Reading Location: [address] Neuro Reading Room MR, BRAIN, WITHOUT [id number] 09:25: 00Reason for exam:->Ischemic Stroke EvaluationFINAL REPORT [...] Verified Date/Time: 08/21/2018 09:25:25 Reading Location : [facility] C013V Neuro Reading Room POCT-GLUCOSE [id number] 21:26:00 Test Item Value Reference Range Comments POC-GLUCOSE METER (BEAKER) 119 mg/dL 70-110 TESTED AT [address] (test mlek=9515) [facility] [address] POCT-GLUCOSE [id number] 18:03:00 Test Item Value Reference Range Comments POC-GLUCOSE METER (BEAKER) 119 mg/dL 70-110 TESTED AT [address] (test dxah=5623) [place] [id number] POCT-GLUCOSE [id number] 12:39:00 Test Item Value Reference Range Comments POC-GLUCOSE METER (BEAKER) 120 mg/dL 70-110 TESTED AT [address] (test abph=7263) [facility] [address] RAD, CHEST, 1 VIEW, NON [id number] 12:04:00Reason for exam:->To Locate Heart Device (Pacemaker)Should [...] MDReport Verified Date/Time: 08/20/2018 12:04:06 [facility] POCT-GLUCOSE [id number] 09:17:00 Test Item Value Reference Range Comments POC-GLUCOSE METER (BEAKER) 121 mg/dL 70-110 TESTED AT [address] (test xofk=0393) [facility] [address] BASIC METABOLIC [id number] 06:56:00 Test Item Value Reference Range Comments SODIUM (BEAKER) (test 140 meq/L 136-145 zkex=356) POTASSIUM (BEAKER) (test 4.0 meq/L 3.5-5.1 cpeq=192) CHLORIDE (BEAKER) (test 108 meq/L 98-107 gwbr=822) CO2 (BEAKER) (test 25 meq/L 22-29 kawj=744) BLOOD UREA NITROGEN 11 mg/dL 7-21 (BEAKER) (test krrw=602) CREATININE (BEAKER) (test 0.69 mg/dL 0.57-1.25 hgna=053) GLUCOSE RANDOM (BEAKER) 94 mg/dL 70-105 (test ojeh=310) CALCIUM (BEAKER) (test 9.5 mg/dL 8.4-10.2 ohnn=151) EGFR (BEAKER) (test 96 mL/min/1.73 sq m ESTIMATED GFR IS NOT dbdm=7586) ACCURATE CREATININE CLEARANCE IN PREDICTING GLOMERULAR FILTRATION RATE. ESTIMATED GFR IS NOT APPLICABLE FOR DIALYSIS PATIENTS. POCT-GLUCOSE [id number] 21:09:00 Test Item Value Reference Range Comments POC-GLUCOSE METER (BEAKER) 109 mg/dL 70-110 TESTED AT [address] (test gxmd=2156) [place] [id number] POCT-GLUCOSE [id number] 17:15:00 Test Item Value Reference Range Comments POC-GLUCOSE METER (BEAKER) 117 mg/dL 70-110 TESTED AT [address] (test wsje=2406) [place] [address] VITAMIN B12 AND [id number] 06:39:00 Test Item Value Reference Range Comments VITAMIN B12 (BEAKER) (test nmop=086) 524 pg/mL 213-816 FOLATE (BEAKER) (test btzd=308) 13.5 ng/mL >=7.0 BASIC METABOLIC [id number] 05:48:00 Test Item Value Reference Range Comments SODIUM (BEAKER) (test 139 meq/L 136-145 vkul=784) POTASSIUM (BEAKER) (test 4.0 meq/L 3.5-5.1 hazz=053) CHLORIDE (BEAKER) (test 107 meq/L 98-107 owjq=925) CO2 (BEAKER) (test 24 meq/L 22-29 xmye=463) BLOOD UREA NITROGEN 11 mg/dL 7-21 (BEAKER) (test klpj=971) CREATININE (BEAKER) (test 0.72 mg/dL 0.57-1.25 yjdl=553) GLUCOSE RANDOM (BEAKER) 107 mg/dL 70-105 (test waoi=839) CALCIUM (BEAKER) (test 9.5 mg/dL 8.4-10.2 upne=622) EGFR (BEAKER) (test 91 mL/min/1.73 sq m ESTIMATED GFR IS NOT nkry=1470) ACCURATE CREATININE CLEARANCE IN PREDICTING GLOMERULAR FILTRATION RATE. ESTIMATED GFR IS NOT APPLICABLE FOR DIALYSIS PATIENTS. [id number] 15:42:00 Test Item Value Reference Range Comments RPR SCREEN (BEAKER) (test aarf=056) Nonreactive Nonreactive HEMOGLOBIN [id number] 09:14:00 Test Item Value Reference Range Comments HEMOGLOBIN A1C (BEAKER) (test ciyv=726) 5.3 % 4.3-6.1 TSH/FREE T4 IF [id number] 04:49:00 Test Item Value Reference Range Comments THYROID STIMULATING HORMONE (BEAKER) (test 3.18 uIU/mL 0.35-4.94 equq=544) BASIC METABOLIC [id number] 04:38:00 Test Item Value Reference Range Comments SODIUM (BEAKER) (test 139 meq/L 136-145 kowb=180) POTASSIUM (BEAKER) (test 4.2 meq/L 3.5-5.1 Specimen slightly olvq=752) hemolyzed CHLORIDE (BEAKER) (test 107 meq/L 98-107 twea=924) CO2 (BEAKER) (test 26 meq/L 22-29 yqkm=285) BLOOD UREA NITROGEN 10 mg/dL 7-21 (BEAKER) (test bokg=130) CREATININE (BEAKER) (test 0.73 mg/dL 0.57-1.25 Specimen slightly qsez=876) hemolyzed GLUCOSE RANDOM (BEAKER) 104 mg/dL 70-105 (test raaj=572) CALCIUM (BEAKER) (test 9.7 mg/dL 8.4-10.2 vpsq=979) EGFR (BEAKER) (test 90 mL/min/1.73 sq m ESTIMATED GFR IS NOT lkdg=0314) ACCURATE CREATININE CLEARANCE IN PREDICTING GLOMERULAR FILTRATION RATE. ESTIMATED GFR IS NOT APPLICABLE FOR DIALYSIS PATIENTS. LIPID [id number] 04:38:00 Test Item Value Reference Range Comments TRIGLYCERIDES (BEAKER) (test 121 mg/dL Specimen slightly hemolyzed jtdj=896) CHOLESTEROL (BEAKER) (test 172 mg/dL Specimen slightly hemolyzed qfen=804) HDL CHOLESTEROL (BEAKER) (test 36 mg/dL kuqy=106) LDL CHOLESTEROL CALCULATED 112 mg/dL (BEAKER) (test rpho=069) Triglyceride Reference Range: Low Risk <150 Borderline 150- 199 High Risk 200-499 Very High Risk >=500Cholesterol Reference Range: Low Risk <200 Borderline 200-239 High Risk > 240HDL Cholesterol Reference Range: Low Risk >=60 High Risk <40LDL Cholesterol Reference Range: Optimal <100 Near Optimal 100-129 Borderline 130-159 High 160-189 Very High >=190HEPATIC FUNCTION [id number] 04:38:00 Test Item Value Reference Range Comments TOTAL PROTEIN (BEAKER) (test 6.9 gm/dL 6.0-8.3 Specimen slightly hemolyzed waru=466) ALBUMIN (BEAKER) (test 3.8 g/dL 3.5-5.0 Specimen slightly hemolyzed mxok=6104) BILIRUBIN TOTAL (BEAKER) (test 0.3 mg/dL 0.2-1.2 Specimen slightly hemolyzed skzg=773) BILIRUBIN DIRECT (BEAKER) (test 0.1 mg/dL 0.1-0.5 Specimen slightly hemolyzed hshr=668) ALKALINE PHOSPHATASE (BEAKER) 95 U/L 40-150 (test kfwh=313) AST (SGOT) (BEAKER) (test 20 U/L 5-34 Specimen slightly hemolyzed gimd=345) ALT (SGPT) (BEAKER) (test 13 U/L 6-55 Specimen slightly hemolyzed pifq=565) CBC (HEMOGRAM ONLY)2018-08-18 03:55:00 Test Item Value Reference Range Comments WHITE BLOOD CELL COUNT (BEAKER) (test onbq=046) 5.7 K/ L 3.5-10.5 RED BLOOD CELL COUNT (BEAKER) (test tbro=158) 4.44 M/ L 3.93-5.22 HEMOGLOBIN (BEAKER) (test gbuu=970) 12.9 GM/DL 11.2-15.7 HEMATOCRIT (BEAKER) (test ekre=718) 39.8 % 34.1-44.9 MEAN CORPUSCULAR VOLUME (BEAKER) (test cjpk=083) 89.6 fL 79.4-94.8 MEAN CORPUSCULAR HEMOGLOBIN (BEAKER) (test 29.1 pg 25.6-32.2 gljo=175) MEAN CORPUSCULAR HEMOGLOBIN CONC (BEAKER) (test 32.4 GM/DL 32.2-35.5 ujfr=589) RED CELL DISTRIBUTION WIDTH (BEAKER) (test 12.6 % 11.7-14.4 kgct=782) PLATELET COUNT (BEAKER) (test eclg=523) 210 K/CU MM 150-450 MEAN PLATELET VOLUME (BEAKER) (test dnhh=334) 10.3 fL 9.4-12.3 NUCLEATED RED BLOOD CELLS (BEAKER) (test 0 /100 WBC 0-0 hmjb=388) AFB Culture and [id number] 13:24:00Specimen/Source: Wound/ PACEMAKERCollected: 09/05/2017 19:45 Status: Final Last Updated: 2017 13:24 PTM-Aqepf-Jspgixjixipw (Final) (Final) 09/07/17 No acid fast bacill seen on direct smear Culture Result (Final) (Final) 11/01/17 No growth of AFB at six (6) weeksFungus Culture with [id number] 12:12: 00Specimen/Source: Wound/PACEMAKERCollected: 09/05/2017 19:45 Status: Final Last Updated: 10/22/2017 12:12 Fungal Smear Result (Final) (Final) 09/06/17 No yeast or hyphae seen Culture Result (Final) (Final) 10/22/17 No fungus isolated at 6 weeksCulture, Blood [id number] 08:23:00Specimen: BloodCollected: 09/04/2017 20:30 Status: Final Last Updated: 09/10/2017 08: 23 Culture Result (Final) (Final) No Growth After 5 DaysCulture, Blood [id number] 08:23:00Specimen: BloodCollected: 09/04/2017 20:15 Status: Final Last Updated: 09/10/2017 08:23 Culture Result (Final) (Final) No Growth After 5 DaysCulture, Wound [id number] 08:52:00Specimen: WoundCollected: 09/05/2017 19:45 Status: Final Last Updated: 09/08/2017 08: 52 Gram Stain (Final) (Final) 09/06/17 No organisms seen, Few WBC's Culture Result (Final) (Final) 09/08/17 Anaerobic culture:No anaerobes isolated at 3 days Isolate (Final) (Final) 09/07/17Few Staph-coag positive Isolate Staph-coag positive JERMAINE (mcg/ml) Amoxicillin/Clav (AUG)<=4/2 Susceptible Ampicillin (AM) >8 Resistant Ampicillin/Sulb (A/S) <=8/4 Susceptible Cefazolin (CFZ) <=4 Susceptible Ceftriaxone ([employer]) <=4 Susceptible Chloramphenicol (C) <=8 Susceptible Ciprofloxacin (CP) <=1 Susceptible Clindamycin (CM) 0.5 Susceptible Erythromycin (E) <=0.25 Susceptible Gentamicin (GM) <=1 Susceptible Imipenem (IMP) <=4 Susceptible Levofloxacin (LEV) <=0.5 Susceptible Linezolid (LNZ) 4 Susceptible Oxacillin (OX1) 0.5 Susceptible Penicillin (P) >8 Resistant Rifampin ( RA) <=1 Susceptible Tetracycline (TE) <=1 Susceptible Trimethoprim/Sulfa <=0.5/9.Susceptible (SXT) 5 Vancomycin (VA) 2 SusceptibleRenal [id number] 08:51: 00 Test Item Value Reference Range [...] race is not provided, and the patient isAfrican-[place], multiply by 1.212. If sex is not [...] the National Kidney Foundation,http://nkdep.nih .gov CBC with [id number] 07:39:00 Test Item Value Reference Range Comments [...] Lymph Abs (test code=ALYMPH) 1.7 K/cumm 0.5-4.6 [place] Abs (test code=AMONO) 0.3 K/cumm 0.0-1.2 Eos Abs (test code=AEOS) 0.29 K/cumm 0.00-0.74 Baso Abs (test code=ABASO) 0.0 K/cumm 0.00-0.21 Vancomycin, [id number] 12:33:00 Test Item Value Reference Range Comments Vanco, Trou (test code=VANTR) 7.9 ug/mL 10.0-20.0 Magnesium, [id number] 06:37:00 Test Item Value Reference Range Comments Magnesium (test code=MG) 2.4 mg/dL 1.7-2.5 Renal [id number] 06:29:00 Test Item Value Reference Range Comments [...] race is not provided, and the patient isAfrican-[place], multiply by 1.212. If sex is not [...] the National Kidney Foundation,http://nkdep.nih .gov BHCG, Serum, [id number] 06:26:00 Test Item Value Reference Range Comments Preg Qual [Se] (test code=BSHCG) Negative Negative CBC with [id number] 06:24:00 Test Item Value Reference Range Comments [...] Lymph Abs (test code=ALYMPH) 1.6 K/cumm 0.5-4.6 [place] Abs (test code=AMONO) 0.4 K/cumm 0.0-1.2 Eos Abs (test code=AEOS) 0.18 K/cumm 0.00-0.74 Baso Abs (test code=ABASO) 0.0 K/cumm 0.00-0.21 XR CHEST 1 [id number] 16:29:55XR CHEST 1 VIEWLOCATION: [id number]: None.INDICATION: REVIEW PICC LINE PLACEMENTDISCUSSION:AP chest and [...] TSH (test code=TSH) 3.44 mIU/mL 0.270-4.200 Lipid [id number] 05:47:00 Test Item Value Reference Range Comments Cholesterol (test 160 mg/dL 0-200 code=CHOL) Triglycerides (test 126 mg/dL 9-200 code=TRIG) HDL (test code=HDL) 35 mg/dL 50-60 Chol/HDL (test 4.6 Ratio 0.0-4.4 code=CHOLPHDL) LDL, Calculated (test 100 0-130 (NOTE)RISK OF HEART code=LDLC) DISEASEPublished by [place]ralt[place] Heart AssociationAnalyte Optimal Boderline Increased RiskCHOL <200 200-239 >240TRIG <150 150-199 >200HDL Male: >60 <40HDL Female: >60 <50LDL <100 130-159 >160LDL NEAR OPTIMAL IS 100-129 VLDL (test code=VLDL) 25 mg/dL 5-40 LDL/HDL (test code=LDLPHDL) 3 Basic Metabolic [id number] 05:47:00 Test Item Value Reference Range Comments [...] race is not provided, and the patient isAfrican-[place], multiply by 1.212. If sex is not provided, and thepatient is female, multiply by 0.742. Results for patients <18 years ofage have not been validated by the MDRD study and should be interpretedwith caution.eGFR Result Interpretation:eGFR > or=60 is in the Normal RangeeGFR < 60 may mean kidney diseaseeGFR < 15 may mean kidney failureRanges recommended by the National Kidney Foundation,http://nkdep.nih .gov Magnesium, [id number] 05:47:00 Test Item Value Reference Range Comments Magnesium (test code=MG) 2.3 mg/dL 1.7-2.5 CBC with [id number] 05:36:00 Test Item Value Reference Range Comments [...] Lymph Abs (test code=ALYMPH) 2.2 K/cumm 0.5-4.6 [place] Abs (test code=AMONO) 0.3 K/cumm 0.0-1.2 Eos Abs (test code=AEOS) 0.24 K/cumm 0.00-0.74 Baso Abs (test code=ABASO) 0.0 K/cumm 0.00-0.21 Partial Thromboplastin [id number] 21:26:00 Test Item Value Reference Range Comments aPTT (test code=PTT) 29.00 seconds 24.39-37.25 Prothrombin [id number] 21:26:00 Test Item Value Reference Range Comments PT (test code=PT) 10.70 seconds 9.78-13.35 INR (test code=INR) 0.95 Ratio 0.6-1.2 Comprehensive Metabolic [id number] 21:23:00 Test Item Value Reference Range Comments [...] race is not provided, and the patient isAfrican[place], multiply by 1.212. If sex is not [...] the National Kidney Foundation,http://nkdep.nih .gov CBC with [id number] 21:16:00 Test Item Value Reference Range Comments [...] Lymph Abs (test code=ALYMPH) 2.2 K/cumm 0.5-4.6 [place] Abs (test code=AMONO) 0.4 K/cumm 0.0-1.2 Eos Abs (test code=AEOS) 0.17 K/cumm 0.00-0.74 Baso Abs (test code=ABASO) 0.1 K/cumm 0.00-0.21
[2019-01-24 22:58] LABS: Absolute Lymphocytes (CBC) 1.9 K/uL (0.7-4.9); Absolute Monocytes 0.5 K/uL (0.1-1.3); Absolute Neutrophil 6.2 K/uL (1.8-8.0); Basophils % 0.7 % (0-1.3); Eosinophils % 1.2 % (0-4.4); Hematocrit 40.4 % (36.0-45.0); Lymphocytes % 21.7 % (15.3-44.8); MPV 8.7 fL (7.6-11.3); Monocytes % 5.4 % (3.3-12.3); RBC Red Blood Cell Count 4.72 M/uL (3.86-4.86)
[2019-01-24 23:03] LABS: Protime INR 1.06
[2019-01-24] MEDS ORDERED: ONDANSETRON 4 MG/2 ML VIAL ONE ×2 (23:03→23:56)
[2019-01-24] MEDS ORDERED: HYDROMORPHONE HCL 0.5 MG/0.5 ML INJ ONE (23:03)
[2019-01-24 23:06] LABS: Barbiturates NEGATIVE (NEGATIVE); Benzodiazepines NEGATIVE (NEGATIVE); Cocaine NEGATIVE (NEGATIVE); METHAMPHETAM NEGATIVE (NEGATIVE); Methadone NEGATIVE (NEGATIVE); Opiates NEGATIVE (NEGATIVE); Phencyclidine NEGATIVE (NEGATIVE); THC Cannibis NEGATIVE (NEGATIVE)
[2019-01-24 23:17] LABS: ALT/SGPT 23 U/L (12-78); AST/SGOT 17 U/L (15-37); Albumin 4.2 g/dL (3.4-5.0); Alkaline Phosphatase 137 U/L (45-117); BUN Blood Urea Nitrogen 16 mg/dL (7-18); Bicarbonate 25 mmol/L (21-32); Bilirubin Direct 0.1 mg/dL (0-0.2); Bilirubin Total 0.4 mg/dL (0.2-1.0); Glucose Level 99 mg/dL (74-106); Magnesium 2.1 mg/dL (1.8-2.4); NT PRO-BNP 25 pg/mL (<125); Potassium 3.4 mmol/L (3.5-5.1); Protein, Total 8.2 g/dL (6.4-8.2); Sodium Level 142 mmol/L (136-145); Troponin (Emerg Dept Use Only) < 0.02 ng/mL (0.0-0.045)
--- NOTE | 2019-01-24 23:27 | ER ---
Nurse's Notes [facility] Name: Jenni Rivera Age: 38 yrs Sex: Female : 1980 Arrival Date: 01/24/2019 Time: 21:59 Bed 6 Private MD: Diya Mora Atiq Diagnosis: Other chest pain;Hypokalemia;Essential (primary) hypertension;Urinary tract infection, site not specified Presentation: 01/24 22:11 Presenting complaint: Patient states: she was watching TV tonight and had sudden onset bb of chest pain with numbness to her left arm pt states she has sick sinus syndrome and has a pacemaker pain is constant and is 9/10 she is nauseous, light-headed and short of breath. Transition of care: patient was not received from another setting of care. Onset of symptoms was January 24, 2019. Risk Assessment: Do you want to hurt yourself or someone else? Patient reports no desire to harm self or others. Initial Sepsis Screen: Does the patient meet any 2 criteria? No. Patient's initial sepsis screen is negative. Does the patient have a suspected source of infection? No. Patient's initial sepsis screen is negative. Care prior to arrival: None. 22:11 Method Of Arrival: Ambulatory bb 22:11 Acuity: LYUBOV 2 bb BAKER BREAD: 22:21 LMP N/A - Hysterectomy bb Historical: - Allergies: 22:21 Adhesives; bb 22:21 Aspirin; bb 22:21 Bactrim; bb 22:21 Benadryl; bb 22:21 Ciprofloxacin; bb 22:21 Clindamycin; bb 22:21 Codeine; bb 22:21 Detrol; bb 22:21 GABAPENTIN; bb 22:21 Iodine; bb 22:21 Latex, Natural Rubber; bb 22:21 Morphine; bb 22:21 PENICILLINS; bb 22:21 Seroquel; bb 22:21 Sulfa (Sulfonamide Antibiotics); bb 22:21 tramadol; bb - Home Meds: 22:21 Abilify 10 mg Oral tab 1 tab once daily [Active]; Abilify 5 mg Oral tab 1 tab nightly bb [Active]; albuterol sulfate 1.25 mg/3 mL Inhl nebu 3 mL 3 times per day [Active]; apixaban oral 5 mg BID oral [Active]; atorvastatin 10 mg oral tab 1 tab once daily [Active]; benztropine 1 mg Oral tab 1 tab 2 times per day [Active]; Breo Ellipta 100-25 mcg/dose inhalation dsdv 1 puff once daily [Active]; buspirone 15 mg Oral tab 1 tab 2 times per day [Active]; Coreg 25 mg Oral tab 1 tab 2 times per day [Active]; Daliresp 500 mcg Oral tab 1 tab once daily [Active]; digoxin 125 mcg Oral tab 1 tab once daily [Active]; esomeprazole magnesium 40 mg Oral cpDR 1 cap once daily [Active]; ketorolac 10 mg Oral tab 1 tab every 6 hours [Active]; Keppra 1,000 mg Oral tab 1 tab every 12 hours [Active]; levothyroxine 150 mcg oral tab 1 tab once daily [Active]; loratadine 10 mg Oral tab 1 tab once daily [Active]; methocarbamol 500 mg Oral tab 1 tabs 4 times per day [Active]; Ranexa 500 mg Oral Tb12 1 tab 2 times per day [Active]; Spiriva with HandiHaler 18 mcg inhalation CpDv 1 cap once daily [Active]; Topamax 100 mg Oral tab 2 tabs 2 times per day [Active]; venlafaxine 150 mg Oral cp24 1 cap once daily [Active]; Xanax 0.25 mg Oral tab 1 tab PRN [Active]; - PMHx: 22:21 Anxiety; Asthma; Back pain; Bronchitis; Hypertension; HYPOGLYCEMIA; Hypothyroidism; bb internal heart monitor; Kidney stones; mitral valve prolapse; Myocardial infarction; neuropathy; Pacemaker; Seizures; sick sinus syndrome; TIA; Upper Resp Infection; - PSHx: 22:21 pacemaker; bb - Immunization history:: Adult Immunizations up to date. - Social history:: Smoking status: Patient/guardian denies using tobacco. - Ebola Screening: : No symptoms or risks identified at this time. - Family history:: not pertinent. Screenin:08 Abuse screen: Denies threats or abuse. Nutritional screening: No deficits noted. ea Tuberculosis screening: No symptoms or risk factors identified. Fall Risk IV access (20 points). Assessment: 22:45 General: Appears uncomfortable, Behavior is calm, cooperative, appropriate for age. ea Pain: Complains of pain in chest. Neuro: Level of Consciousness is awake, alert, obeys commands, Oriented to person, place, time, situation. Cardiovascular: Heart tones S1 S2 present Patient's skin is warm and dry. Respiratory: Airway is patent Respiratory effort is even, unlabored, Respiratory pattern is regular, symmetrical. Derm: Skin is dry, Skin is pale, Skin temperature is warm. 01/25 00:00 Reassessment: Patient and/or family updated on plan of care and expected duration. Pain ea level reassessed. Patient is alert, oriented x 3, equal unlabored respirations, skin warm/dry/pink. Pt complaining of nausea, provider notified, medication order obtained, medication administered pt tolerated well. 01:56 Reassessment: Patient and/or family updated on plan of care and expected duration. Pain ea level reassessed. Patient is alert, oriented x 3, equal unlabored respirations, skin warm/dry/pink. Dr. Chaparro at bedside, updating pt on plan of care. Verbal order obtained for repeat troponin. 02:15 Reassessment: Patient and/or family updated on plan of care and expected duration. Pain ea level reassessed. Patient is alert, oriented x 3, equal unlabored respirations, skin warm/dry/pink. 04:27 Reassessment: Patient and/or family updated on plan of care and expected duration. Pain ea level reassessed. Patient is alert, oriented x 3, equal unlabored respirations, skin warm/dry/pink. Discharge instructions obtained on [employer]. 22 G in right forearm discontinued, catheter tip intact, bleeding controlled, pressure dressing applied. Pt left ED ambulating, accompanied by family, pt tolerating well. Vital Signs: 01/24 22:21 BP 129 / 92; Pulse 112; Resp 28 S; Temp 98(O); Pulse Ox 100% on R/A; Weight 50.35 kg bb (R); Height 4 ft. 10 in. (147.32 cm) (R); Pain 9/10; 23:30 BP 118 / 81; Pulse 92; Resp 17; Pulse Ox 97% ; ea 01/25 00:12 BP 115 / 74; Pulse 91; Resp 18; Pulse Ox 98% on R/A; ea 01:30 BP 108 / 82; Pulse 87; Resp 18; Pulse Ox 98% on R/A; ea 02:00 BP 105 / 82; Pulse 87; Resp 18; Temp 97.8(TE); Pulse Ox 99% ; ea 03:55 BP 102 / 78; Pulse 90; Resp 18; Pulse Ox 98% ; ea 04:15 BP 108 / 80; Pulse 87; Resp 16; Temp 97.8; Pulse Ox 98% on R/A; ea 01/24 22:21 Body Mass Index 23.20 (50.35 kg, 147.32 cm) bb ED Course: 01/24 21:59 Patient arrived in ED. am2 22:00 Diya Mora MD is Private Physician. am2 22:02 Caio Aceves MD is Attending Physician. taty 22:08 Arm band placed on Patient placed in an exam room, on a stretcher, on automatic spinning lathe setter, bb on pulse oximetry. EKG completed in triage. Results shown to MD. EKG completed in triage. Results shown to MD. Family accompanied patient. 22:14 Triage completed. bb 22:16 Patient has correct armband on for positive identification. Placed in gown. Bed in low ea position. Call light in reach. Side rails up X 1. library customer service clerk on. Pulse ox on. NIBP on. 22:19 Jamie Hargrove, RN is Primary Nurse. rr5 22:19 XRAY Chest (1 view) In Process Unspecified. EDMS 22:45 Inserted saline lock: 22 gauge in right forearm, using aseptic technique. Blood ea collected. Patient maintains SpO2 saturation greater than 95% on room air. 23:25 Roby Driscoll MD is Hospitalizing Provider. [facility] 01/25 00:36 No provider procedures requiring assistance completed. Patient admitted, IV remains in ea place. Administered Medications: 01/24 22:55 Drug: Zofran 4 mg Route: IVP; Site: right forearm; ea 23:58 Follow up: Response: No adverse reaction; Nausea unchanged; Nausea unchanged, provider ea notified, order obtained. 22:58 Drug: Dilaudid 0.5 mg Route: IVP; Site: right forearm; ea 23:58 Follow up: Response: No adverse reaction; Pain is decreased ea 23:50 Drug: Zofran 4 mg Route: IVP; Site: right forearm; ea 01/25 00:30 Follow up: Response: No adverse reaction; Vomiting decreased ea 00:11 Drug: Potassium Effervescent Tablet 25 mEq Route: PO; ea 00:37 Follow up: Response: No adverse reaction ea Outcome: 01/24 23:26 Decision to Hospitalize by Provider. taty 01/25 04:28 Discharged to home ambulatory. ea Condition: stable Discharge instructions given to patient, Instructed on discharge instructions, follow up and referral plans. Demonstrated understanding of instructions, follow-up care. 04:38 Patient left the ED. ea Signatures: Dispatcher [employer] EDNV Caio Aceves MD MD cha Ballard, Brenda, RN RN Vinita aCrter Elena, RN RN ea Roque, Raymond RN RN [email or web address] Corrections: (The following items were deleted from the chart) 04:31 04:27 Reassessment: Patient and/or family updated on plan of care and expected ea duration. Pain level reassessed. Patient is alert, oriented x 3, equal unlabored respirations, skin warm/dry/pink. Discharge instructions obtained on Exploret[employer]. ea
--- NOTE | 2019-01-24 23:27 | EDPHYS ---
Physician Documentation [facility] Name: Jenni Rivera Age: 38 yrs Sex: Female : 1980 Arrival Date: 01/24/2019 Time: 21:59 Bed 6 Private MD: Diya Mora Atiq ED Physician Caio Aceves HPI: 01/24 22:27 This 38 yrs old Female presents to ER via Ambulatory with complaints of Chest taty Pain, Numbness Of Arm. 22:27 The patient or guardian reports chest pain that is located primarily in the substernal taty area. The pain radiates to the left arm. Associated signs and symptoms: The patient has no apparent associated signs or symptoms. The chest pain is described as a pressure. Duration: The patient or guardian reports a single episode, that is still ongoing. Severity of pain: At its worst the pain was mild moderate in the emergency department the pain is unchanged. The patient has experienced similar episodes in the past, several times. 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: 22:21 LMP N/A - Hysterectomy bb Historical: - Allergies: 22:21 Adhesives; bb 22:21 Aspirin; bb 22:21 Bactrim; bb 22:21 Benadryl; bb 22:21 Ciprofloxacin; bb 22:21 Clindamycin; bb 22:21 Codeine; bb 22:21 Detrol; bb 22:21 GABAPENTIN; bb 22:21 Iodine; bb 22:21 Latex, Natural Rubber; bb 22:21 Morphine; bb 22:21 PENICILLINS; bb 22:21 Seroquel; bb 22:21 Sulfa (Sulfonamide Antibiotics); bb 22:21 tramadol; bb - Home Meds: 22:21 Abilify 10 mg Oral tab 1 tab once daily [Active]; Abilify 5 mg Oral tab 1 tab nightly bb [Active]; albuterol sulfate 1.25 mg/3 mL Inhl nebu 3 mL 3 times per day [Active]; apixaban oral 5 mg BID oral [Active]; atorvastatin 10 mg oral tab 1 tab once daily [Active]; benztropine 1 mg Oral tab 1 tab 2 times per day [Active]; Breo Ellipta 100-25 mcg/dose inhalation dsdv 1 puff once daily [Active]; buspirone 15 mg Oral tab 1 tab 2 times per day [Active]; Coreg 25 mg Oral tab 1 tab 2 times per day [Active]; Daliresp 500 mcg Oral tab 1 tab once daily [Active]; digoxin 125 mcg Oral tab 1 tab once daily [Active]; esomeprazole magnesium 40 mg Oral cpDR 1 cap once daily [Active]; ketorolac 10 mg Oral tab 1 tab every 6 hours [Active]; Keppra 1,000 mg Oral tab 1 tab every 12 hours [Active]; levothyroxine 150 mcg oral tab 1 tab once daily [Active]; loratadine 10 mg Oral tab 1 tab once daily [Active]; methocarbamol 500 mg Oral tab 1 tabs 4 times per day [Active]; Ranexa 500 mg Oral Tb12 1 tab 2 times per day [Active]; Spiriva with HandiHaler 18 mcg inhalation CpDv 1 cap once daily [Active]; Topamax 100 mg Oral tab 2 tabs 2 times per day [Active]; venlafaxine 150 mg Oral cp24 1 cap once daily [Active]; Xanax 0.25 mg Oral tab 1 tab PRN [Active]; - PMHx: 22:21 Anxiety; Asthma; Back pain; Bronchitis; Hypertension; HYPOGLYCEMIA; Hypothyroidism; bb internal heart monitor; Kidney stones; mitral valve prolapse; Myocardial infarction; neuropathy; Pacemaker; Seizures; sick sinus syndrome; TIA; Upper Resp Infection; - PSHx: 22:21 pacemaker; bb - Immunization history:: Adult Immunizations up to date. - Social history:: Smoking status: Patient/guardian denies using tobacco. - Ebola Screening: : No symptoms or risks identified at this time. - Family history:: not pertinent. ROS: 22:27 Constitutional: Negative for fever, chills, and weight loss, Eyes: Negative for injury, taty pain, redness, and discharge, ENT: Negative for injury, pain, and discharge, Neck: Negative for injury, pain, and swelling, Abdomen/GI: Negative for abdominal pain, nausea, vomiting, diarrhea, and constipation, Back: Negative for injury and pain, : Negative for injury, bleeding, discharge, and swelling, MS/Extremity: Negative for injury and deformity, Skin: Negative for injury, rash, and discoloration, Neuro: Negative for headache, weakness, numbness, tingling, and seizure, Psych: Negative for depression, anxiety, suicide ideation, homicidal ideation, and hallucinations, Allergy/Immunology: Negative for hives, rash, and allergies, Endocrine: Negative for neck swelling, polydipsia, polyuria, polyphagia, and marked weight changes, Hematologic/Lymphatic: Negative for swollen nodes, abnormal bleeding, and unusual bruising. 22:27 Cardiovascular: Positive for chest pain. 22:27 Respiratory: Positive for shortness of breath, at rest. Exam: 22:27 Constitutional: This is a well developed, well nourished patient who is awake, alert, taty and in no acute distress. Head/Face: Normocephalic, atraumatic. Eyes: Pupils equal round and reactive to light, extra-ocular motions intact. Lids and lashes normal. Conjunctiva and sclera are non-icteric and not injected. Cornea within normal limits. Periorbital areas with no swelling, redness, or edema. ENT: Nares patent. No nasal discharge, no septal abnormalities noted. Tympanic membranes are normal and external auditory canals are clear. Oropharynx with no redness, swelling, or masses, exudates, or evidence of obstruction, uvula midline. Mucous membranes moist. Neck: Trachea midline, no thyromegaly or masses palpated, and no cervical lymphadenopathy. Supple, full range of motion without nuchal rigidity, or vertebral point tenderness. No Meningismus. Chest/axilla: Normal chest wall appearance and motion. Nontender with no deformity. No lesions are appreciated. Cardiovascular: Regular rate and rhythm with a normal S1 and S2. No gallops, murmurs, or rubs. Normal PMI, no JVD. No pulse deficits. Abdomen/GI: Soft, non-tender, with normal bowel sounds. No distension or tympany. No guarding or rebound. No evidence of tenderness throughout. Back: No spinal tenderness. No costovertebral tenderness. Full range of motion. Skin: Warm, dry with normal turgor. Normal color with no rashes, no lesions, and no evidence of cellulitis. MS/ Extremity: Pulses equal, no cyanosis. Neurovascular intact. Full, normal range of motion. Neuro: Awake and alert, GCS 15, oriented to person, place, time, and situation. Cranial nerves II-XII grossly intact. Motor strength 5/5 in all extremities. Sensory grossly intact. Cerebellar exam normal. Normal gait. Psych: Awake, alert, with orientation to person, place and time. Behavior, mood, and affect are within normal limits. 22:27 Respiratory: the patient does not display signs of respiratory distress, Breath sounds: bronchial sounds, rhonchi. 22:27 Abdomen/GI: Inspection: abdomen appears normal, Bowel sounds: normal, Palpation: abdomen is soft and non-tender, Liver: no appreciated palpable abnormalities, Hernia: not appreciated. 22:27 Musculoskeletal/extremity: DVT Exam: No signs of deep vein thrombosis. no pain, no swelling, no tenderness, negative Homans' sign noted on exam, no appreciated bluish discoloration, no erythema, no increased warmth. Vital Signs: 22:21 BP 129 / 92; Pulse 112; Resp 28 S; Temp 98(O); Pulse Ox 100% on R/A; Weight 50.35 kg bb (R); Height 4 ft. 10 in. (147.32 cm) (R); Pain 9/10; 23:30 BP 118 / 81; Pulse 92; Resp 17; Pulse Ox 97% ; ea 01/25 00:12 BP 115 / 74; Pulse 91; Resp 18; Pulse Ox 98% on R/A; ea 01:30 BP 108 / 82; Pulse 87; Resp 18; Pulse Ox 98% on R/A; ea 02:00 BP 105 / 82; Pulse 87; Resp 18; Temp 97.8(TE); Pulse Ox 99% ; ea 03:55 BP 102 / 78; Pulse 90; Resp 18; Pulse Ox 98% ; ea 04:15 BP 108 / 80; Pulse 87; Resp 16; Temp 97.8; Pulse Ox 98% on R/A; ea 01/24 22:21 Body Mass Index 23.20 (50.35 kg, 147.32 cm) MDM: 01/24 22:02 Patient medically screened. [facility] 22:30 Data reviewed: vital signs, nurses notes, lab test result(s), EKG, radiologic studies, [facility] CT scan, plain films. 01/24 22:07 Order name: Basic Metabolic Panel; Complete Time: 23:24 01/24 22:07 Order name: CBC with Diff; Complete Time: 23:24 01/24 22:07 Order name: LFT's; Complete Time: 23:24 01/24 22:07 Order name: Magnesium; Complete Time: 23:24 01/24 22:07 Order name: NT PRO-BNP; Complete Time: 23:24 ea 01/24 22:07 Order name: PT-INR; Complete Time: 23:24 ea 01/24 22:07 Order name: Troponin (emerg Dept Use Only); Complete Time: 23:24 ea 01/24 22:07 Order name: XRAY Chest (1 view) ea 01/24 22:27 Order name: UDS; Complete Time: 23:24 [facility] 01/24 22:27 Order name: Digoxin; Complete Time: 03:33 taty 01/24 22:39 Order name: Urine Dipstick--Ancillary (enter results); Complete Time: 03:33 cm6 01/24 22:39 Order name: Urine --Ancillary (enter results); Complete Time: 03:33 cm6 01/25 01:56 Order name: Troponin (emerg Dept Use Only); Complete Time: 03:33 ea 01/24 22:07 Order name: EKG; Complete Time: 22:08 ea 01/24 22:07 Order name: Cardiac monitoring; Complete Time: 23:01 ea 01/24 22:07 Order name: EKG - Nurse/Tech; Complete Time: 22:13 ea 01/24 22:07 Order name: IV Saline Lock; Complete Time: 23:01 ea 01/24 22:07 Order name: Labs collected and sent; Complete Time: 23:01 ea 01/24 22:07 Order name: O2 Per Protocol; Complete Time: 23:01 ea 01/24 22:07 Order name: O2 Sat Monitoring; Complete Time: 23:01 ea 01/24 22:27 Order name: Urine Dipstick-Ancillary (obtain specimen); Complete Time: 23:00 [facility] Administered Medications: 22:55 Drug: Zofran 4 mg Route: IVP; Site: right forearm; ea 23:58 Follow up: Response: No adverse reaction; Nausea unchanged; Nausea unchanged, provider ea notified, order obtained. 22:58 Drug: Dilaudid 0.5 mg Route: IVP; Site: right forearm; ea 23:58 Follow up: Response: No adverse reaction; Pain is decreased ea 23:50 Drug: Zofran 4 mg Route: IVP; Site: right forearm; ea 01/25 00:30 Follow up: Response: No adverse reaction; Vomiting decreased ea 00:11 Drug: Potassium Effervescent Tablet 25 mEq Route: PO; ea 00:37 Follow up: Response: No adverse reaction ea Disposition: 01/24/19 23:26 Hospitalization ordered by Roby Driscoll for Observation. Preliminary diagnosis are Other chest pain, Hypokalemia, Essential (primary) hypertension, Urinary tract infection, site not specified. - Bed requested for Telemetry/MedSurg (observation). - Status is Observation. ea - Condition is Stable. - Problem is new. - Symptoms have improved. UTI on Admission? Yes Signatures: Dispatcher [employer] EDMN Caio Aceves MD MD cha Ballard, Brenda RN RN Cindy Copeland RN RN ea Corrections: (The following items were deleted from the chart) 01/24 23:27 23:26 Hospitalization Ordered by Roby Driscoll MD for Observation. Preliminary taty diagnosis is Other chest pain; Hypokalemia; Essential (primary) hypertension. Bed requested for Telemetry/MedSurg (observation). Status is Observation. Condition is Stable. Problem is new. Symptoms have improved. UTI on Admission? No. taty 01/25 04:38 01/24 23:27 01/24/2019 23:26 Hospitalization Ordered by Roby rDiscoll MD for ea Observation. Preliminary diagnosis is Other chest pain; Hypokalemia; Essential (primary) hypertension; Urinary tract infection, site not specified. Bed requested for Telemetry/MedSurg (observation). Status is Observation. Condition is Stable. Problem is new. Symptoms have improved. UTI on Admission? Yes. taty
[2019-01-24 23:41] LABS: Urine Blood NEGATIVE (NEG); Urine Glucose NEGATIVE (NEG); Urine Protein NEGATIVE (NEG); Urine Specific Gravity 1.015 (1.005-1.030); Urine pH 7.5 (5.0-7.0)
[2019-01-24] MEDS ORDERED: POTASSIUM 25 MEQ EFFERV TAB ONE (23:56)
--- NOTE | 2019-01-25 03:45 | P.SSS ---
Patient History Date of Service: 01/25/19 Reason for admission: chest pain History of Present Illness: Ms Rivera is a 38 years old woman with multiple medical paroblems and medication allergies, who came to ED complaining of chest pain. She describe the pain as sharp, constant since this morning, associated with left arm tingling. The pain start at 7 am yesterday, she denied SOB, diaphoresis, nausea or vomiting. She has had this pain in the past several times. She has history of SSS and had placed a pacemaker for that. EKG was sinus rhythm, with nonspecific ST-T abnormalities. Initial trop I is negative. At my encounter, she was in non-distress. Allergies aspirin Allergy (Severe, Verified 06/23/15 12:41) Anaphylaxis ciprofloxacin [From Cipro] Allergy (Severe, Verified 06/30/15 16:01) Hives/Rash codeine Allergy (Severe, Verified 06/30/15 16:01) Itching/Hives/Rash Penicillins Allergy (Severe, Verified 06/23/15 12:41) Anaphylaxis Sulfa (Sulfonamide Antibiotics) Allergy (Severe, Verified 06/23/15 12:41) Anaphylaxis tolterodine tartrate [From Detrol] Allergy (Severe, Verified 06/23/15 12:41) Anaphylaxis tramadol Allergy (Severe, Verified 06/30/15 16:01) Anaphylaxis latex Allergy (Intermediate, Verified 06/23/15 12:41) Rash adhesive Allergy (Unverified 11/19/16 22:54) Unknown gabapentin Allergy (Unverified 12/25/17 11:08) Unknown ibuprofen Allergy (Unverified 05/21/16 02:16) Unknown iodine Allergy (Unverified 12/25/17 11:08) Unknown Latex, Natural Rubber Allergy (Unverified 05/21/16 02:16) Unknown meperidine [From Demerol] Allergy (Unverified 05/21/16 02:16) Unknown morphine Allergy (Unverified 12/25/17 11:08) Unknown quetiapine [From Seroquel] Allergy (Unverified 05/02/16 18:38) Unknown quetiapine fumarate [From Seroquel] Allergy (Unverified 12/25/17 11:08) Unknown sulfamethoxazole [From Bactrim] Allergy (Unverified 03/18/16 18:24) Unknown tolterodine [From Detrol] Allergy (Unverified 12/25/17 11:08) Unknown trimethoprim [From Bactrim] Allergy (Unverified 03/18/16 18:24) Unknown adhesive tape Allergy (Severe, Uncoded 06/30/15 16:01) Itching/Hives/Rash A Allergy (Uncoded 05/21/16 02:16) Unknown Ad Allergy (Uncoded 05/02/16 18:38) Unknown Adhesives Allergy (Uncoded 03/18/16 18:24) Unknown Clindamycin Allergy (Uncoded 12/25/17 11:08) Unknown Latex, Natura Allergy (Uncoded 03/18/16 18:24) Unknown Latex, Natural Allergy (Uncoded 05/02/16 18:38) Unknown Home Medications: Albuterol Sulfate [Proair Hfa] 8.5 gm IH PRN PRN 06/23/15 Benztropine Mesylate [Cogentin] 1 mg PO BID 06/23/15 Buspirone HCl [Buspar] 10 mg PO BID 06/23/15 Carvedilol [Coreg] 12.5 mg PO BID 06/23/15 Esomeprazole Mag Trihydrate [Nexium] 40 mg PO BID 06/23/15 Estrogens, Conjugated [Premarin] 1 mg PO DAILY 06/23/15 Levothyroxine [Synthroid] 100 mcg PO [id number] 06/23/15 Loratadine [Claritin] 10 mg PO DAILY 06/23/15 Mometasone/Formoterol [Dulera 100 Mcg/5 Mcg Inhaler] 13 gm IH BID 06/23/15 Ranitidine [Zantac] 150 mg PO DAILY 06/23/15 Ranolazine [Ranexa] 500 mg PO BID 06/23/15 Roflumilast [Daliresp] 500 mcg PO DAILY 06/23/15 Sertraline [Zoloft] 50 mg PO DAILY 06/23/15 Tiotropium [Spiriva Handihaler] 18 mcg IH DAILY 06/23/15 Topiramate [Topamax] 100 mg PO BID 06/23/15 Trazodone [Desyrel] 50 mg PO BEDTIME 06/23/15 levETIRAcetam [Keppra Tab] 500 mg PO BID 06/23/15 Codeine/APAP [Tylenol W/Codeine #3 tab] 1 tab PO Q4HP PRN #40 tab 07/01/15 - Past Medical/Surgical History Diabetic: No -: seizures -: epilepsy -: asthma -: COPD -: anxiety -: bipolar -: insomnia -: tachycardia -: left shoulder -: right hand -: hysterectomy - Family History Family History: Reviewed- Non-Contributory - Social History Smoking Status: Former smoker Alcohol use: No CD- Drugs: No Caffeine use: Yes Review of Systems 10-point ROS is otherwise unremarkable Physical Examination - Physical Exam General: Alert, In no apparent distress HEENT: Atraumatic, PERRLA, Mucous membr. moist/pink, EOMI, Sclerae nonicteric Neck: Supple, 2+ carotid pulse no bruit, No LAD, Without JVD or thyroid abnormality Respiratory: Clear to auscultation bilaterally, Normal air movement Cardiovascular: Regular rate/rhythm, Normal S1 S2 Gastrointestinal: Normal bowel sounds, No tenderness Musculoskeletal: No tenderness Integumentary: No rashes Neurological: Normal speech, Normal strength at 5/5 x4 extr, Normal tone, Normal affect Lymphatics: No axilla or inguinal lymphadenopathy - Studies Laboratory Data (last 24 hrs) 01/24/19 22:50: PT 12.5, INR 1.06 01/24/19 22:50: WBC 8.7, Hgb 14.0, Hct 40.4, Plt Count 242 01/24/19 22:50: Sodium 142, Potassium 3.4 L, BUN 16, Creatinine 0.74, Glucose 99 , Magnesium 2.1, Total Bilirubin 0.4, AST 17, ALT 23, Alkaline Phosphatase 137 H - Diagnosis (Problem(s)) (1) Chest pain Current Visit: Yes Status: Acute Qualifiers: Chest pain type: unspecified Qualified Code(s): R07.9 - Chest pain, unspecified Treatment Summary: The patient came to ED due to chest pain, which is atypical per nature. EKG without acute ischemic changes, trop I negative x 2. She will be discharge home in stable condition. Will resume her home medication without changes. Advise the patient to follow up the symptoms progress with her PCP in 1 or 2 days. - Disposition Disposition: ROUTINE DISCHARGE Condition: FAIR Followup: Diya Mora MD [Primary Care Provider] - Prvt As Needed Diet: Low sodium Activity: Ad haley Critical Care: No Home Medications: Albuterol Sulfate [Proair Hfa] 8.5 gm IH PRN PRN 06/23/15 Benztropine Mesylate [Cogentin] 1 mg PO BID 06/23/15 Buspirone HCl [Buspar] 10 mg PO BID 06/23/15 Carvedilol [Coreg] 12.5 mg PO BID 06/23/15 Esomeprazole Mag Trihydrate [Nexium] 40 mg PO BID 06/23/15 Estrogens, Conjugated [Premarin] 1 mg PO DAILY 06/23/15 Levothyroxine [Synthroid] 100 mcg PO [id number] 06/23/15 Loratadine [Claritin] 10 mg PO DAILY 06/23/15 Mometasone/Formoterol [Dulera 100 Mcg/5 Mcg Inhaler] 13 gm IH BID 06/23/15 Ranitidine [Zantac] 150 mg PO DAILY 06/23/15 Ranolazine [Ranexa] 500 mg PO BID 06/23/15 Roflumilast [Daliresp] 500 mcg PO DAILY 06/23/15 Sertraline [Zoloft] 50 mg PO DAILY 06/23/15 Tiotropium [Spiriva Handihaler] 18 mcg IH DAILY 06/23/15 Topiramate [Topamax] 100 mg PO BID 06/23/15 Trazodone [Desyrel] 50 mg PO BEDTIME 06/23/15 levETIRAcetam [Keppra Tab] 500 mg PO BID 06/23/15 Codeine/APAP [Tylenol W/Codeine #3 tab] 1 tab PO Q4HP PRN #40 tab 07/01/15 Diet: AHA Activity: Ad haley Followup: Diya Mora MD [Primary Care Provider] - Prvt As Needed
[2019-01-25 05:01] VITALS: TEMP 97.8
[2019-01-25 05:02] VITALS: O2SAT 98
[2019-01-25 05:04] VITALS: BP 108/80
--- NOTE | 2019-01-25 05:55 | EKG ---
Test Date: 2019-01-24 Test Time: 22:08:43 Indexer: KAREN MEASUREMENT RESULTS: Intervals: Rate: 107 OH: 132 QRSD: 84 QT: 330 QTc: 440 [place]: P: 36 OH: 132 QRS: 31 T: 24 INTERPRETIVE STATEMENTS: Sinus tachycardia Nonspecific ST abnormality Abnormal ECG Compared to ECG 02/26/2011 21:39:04 ST (T wave) deviation now present Sinus rhythm no longer present Electronically Signed On 01-25-19 05:54:18 CDT by Mack Ulrich
--- NOTE | 2019-01-25 07:39 | RAD REPORT ---
EXAM DESCRIPTION: [facility] Single View01/24/2019 10:21 pm CLINICAL HISTORY: Chest pain COMPARISON: July 2018 FINDINGS: The lungs appear clear of acute infiltrate. The heart is normal size. Pacemaker leads are in place. IMPRESSION: No acute abnormalities displayed
== END 2019-01-25 04:14 | disposition home or self-care (01) ==
LOC: ER 21:59
DX: R07.9 Chest pain, unspecified (principal); E87.6 Hypokalemia; N39.0 Urinary tract infection, site not specified; I10 Essential (primary) hypertension; F41.9 Anxiety disorder, unspecified; J45.909 Unspecified asthma, uncomplicated; E03.9 Hypothyroidism, unspecified; Z86.73 Personal history of transient ischemic attack (TIA), and cerebral infarction without residual deficits; I25.2 Old myocardial infarction; Z88.5 Allergy status to narcotic agent; Z88.2 Allergy status to sulfonamides; Z88.8 Allergy status to other drugs, medicaments and biological substances; Z88.6 Allergy status to analgesic agent; Z88.1 Allergy status to other antibiotic agents; Z91.040 Latex allergy status
CPT/HCPCS: 36415; 71045; 80048; 80076; 80162; 80307; 81003; 81025; 83735; 83880; 84484; 85025; 85610; 93005; 96374; 96375; 99285; J1170; J2405

== ENCOUNTER 2019-02-22 22:59 | Emergency (ER) | payer MEDICAID ==
--- OUTSIDE RECORDS SUMMARY | 2019-02-22 23:02 | XMS REPORT | Clinical Summary ---
:1980 Author Organization [facility] Address [address] [place] [address] Care Team Providers Name Role Phone Unavailable [...] unspecified MD Fritz type (Primary Dx) after 02/21/2018 Social History Tobacco Use Types Packs/Day Years [...] Taken Blood Pressure 113/74 09/04/2018 5:48 PM [facility] Pulse 135 09/04/2018 5:48 PM [facility] Temperature 36.7 C (98 F) 09/04/2018 5:48 PM [facility] Respiratory Rate 18 09/04/2018 5:48 PM [facility] Oxygen Saturation 96% 09/04/2018 5:48 PM [facility] Inhaled Oxygen Concentration - - Weight - - Height 149.9 cm (4' 11") 09/04/2018 6:00 PM [facility] Body Mass Index - - Plan of Treatment Health Maintenance Due Date Last Done Comments INFLUENZA VACCINE 04/25/2019 Procedures Procedure Name Priority Date/Time Associated Diagnosis Comments ECG 12-LEAD STAT 09/04/2018 6:02 PM Results for this [facility] procedure are in the results section. after 02/21/2018 Results ECG 12 lead (09/04/2018 6:02 PM [facility]) Ventricular rate 106 [facility] Atrial rate 106 [facility] NH interval 120 [facility] QRSD interval 86 [facility] QT interval 326 [facility] QTC interval 433 [facility] P axis 1 55 [facility] QRS axis 1 55 [facility] T wave axis 50 [facility] EKG impression Sinus [facility] tachycardia-Otherwise normal ECG-- Specimen Narrative Performed At Performing Organization Address City/State/Zipcode Phone Number [facility] [address] [place] [address] after 02/21/2018 Advance Directives Patient has advance care planning documents on file. For more information, please contact:Beny Ortiz[address] [place] [address]
--- OUTSIDE RECORDS SUMMARY | 2019-02-22 23:02 | XMS REPORT | Clinical Summary ---
:1980 Author Organization [facility] Address [address] [place] [address] Care Team Providers Name Role Phone Diya [...] Antonio Gray MD Arif, Sahar, MD after 02/21/2018 Social History Tobacco Use Types [...] Taken Blood Pressure 90/57 08/21/2018 12:05 PM [facility] Pulse 94 08/21/2018 12:05 PM [facility] Temperature 37 C (98.6 F) 08/21/2018 12:05 PM [facility] Respiratory Rate 17 08/21/2018 12:05 PM [facility] Oxygen Saturation 99% 08/21/2018 12:05 PM [facility] Inhaled Oxygen Concentration 21% 08/19/2018 3:10 AM [facility]STRUMENT[facility] Weight 49.9 kg (110 lb) 08/18/2018 12:00 PM [facility] Height 151.1 cm (4' 11.5") 08/18/2018 12:00 PM [facility] Body Mass Index 21.85 08/18/2018 12:00 PM [facility]STRUMENT[facility] Plan of Treatment Not on file Procedures Procedure Name Priority Date/Time Associated Comments Diagnosis ARRYTHMIA IMPLANT 11/12/2018 1:43 REPORT - SCAN PM [facility] ARRYTHMIA IMPLANT 11/12/2018 1:43 REPORT - SCAN PM [facility] ARRYTHMIA IMPLANT 11/12/2018 1:43 REPORT - SCAN PM [facility] RHYTHM STRIP - SCAN 08/22/2018 11:10 AM [facility] POCT-GLUCOSE METER Routine 08/21/2018 10:17 Results for this AM [facility] procedure are in the results section. MR BRAIN WITHOUT IV Routine 08/21/2018 9:20 Results for this CONTRAST AM [facility] procedure are in the results section. MR MRA NECK WITHOUT IV Routine 08/21/2018 9:20 Results for this CONTRAST AM [facility] procedure are in the results section. MR MRA HEAD WITHOUT Routine 08/21/2018 9:20 Results for this CONTRAST AM [facility] procedure are in the results section. POCT-GLUCOSE METER Routine 08/20/2018 9:22 Results for this PM [facility] procedure are in the results section. POCT-GLUCOSE METER Routine 08/20/2018 5:54 Results for this PM [facility] procedure are in the results section. POCT-GLUCOSE METER Routine 08/20/2018 12:34 Results for this PM [facility] procedure are in the results section. XR CHEST 1 VIEW STAT 08/20/2018 11:52 Results for this PORTABLE/BEDSIDE AM [facility] procedure are in the results section. POCT-GLUCOSE METER Routine 08/20/2018 9:00 Results for this AM [facility] procedure are in the results section. BASIC METABOLIC PANEL Routine 08/20/2018 6:03 Results for this (7) AM [facility] procedure are in the results section. POCT-GLUCOSE METER Routine 08/19/2018 9:00 Results for this PM [facility] procedure are in the results section. POCT-GLUCOSE METER Routine 08/19/2018 4:57 Results for this PM [facility] procedure are in the results section. ECHOCARDIOGRAM REPORT - 08/19/2018 4:20 SCAN PM [facility] VITAMIN B12 AND FOLATE Routine 08/19/2018 4:44 Results for this AM [facility] procedure are in the results section. BASIC METABOLIC PANEL Routine 08/19/2018 4:44 Results for this (7) AM [facility] procedure are in the results section. 2D ECHO W/ DOPPLER Routine 08/18/2018 5:34 Results for this (CW/PW/COLOR) PM [facility] procedure are in the results section. RPR Routine 08/18/2018 3:44 Results for this AM [facility] procedure are in the results section. TSH/FREE T4 IF Routine 08/18/2018 3:44 Results for this INDICATED AM [facility] procedure are in the results section. CBC (HEMOGRAM ONLY) Routine 08/18/2018 3:44 Results for this AM [facility] procedure are in the results section. LIPID PANEL Routine 08/18/2018 3:44 Results for this AM [facility] procedure are in the results section. HEPATIC FUNCTION PANEL Routine 08/18/2018 3:44 Results for this AM [facility] procedure are in the results section. HEMOGLOBIN A1C Routine 08/18/2018 3:44 Results for this AM [facility] procedure are in the results section. BASIC METABOLIC PANEL Routine 08/18/2018 3:44 Results for this (7) AM [facility] procedure are in the results section. after 02/21/2018 Results ARRYTHMIA IMPLANT REPORT - SCAN (11/12/2018 1:43 PM MUSICIAN INSTRUMENTAL)Only the most recent of3 resultswithin the time period is included. Narrative Performed At RHYTHM STRIP - SCAN (08/22/2018 11:10 AM MUSICIAN INSTRUMENTAL) Narrative Performed At POC-Glucose meter (08/21/2018 10:17 AM MUSICIAN INSTRUMENTAL)Only the most recent of7 resultswithin the time period is included. POC-Glucose Meter 102Comment: TESTED AT 70 - 110 mg/dL [facility] [address] [facility] [id number] Specimen Blood Performing Organization Address City/State/Zipcode Phone Number [address] [address] [phone] CENTER MR brain without IV contrast (08/21/2018 9:20 AM MUSICIAN INSTRUMENTAL) Specimen Narrative Performed At FINAL REPORT [facility] MRI Brain without contrast Clinical History: Stroke [...] MD Report Verified Date/Time:08/21/2018 09:25:25 Reading Location: [address] Neuro Reading Room Procedure Note Interface, External Ris In - 08/21/2018 9:49 AM MUSICIAN INSTRUMENTAL FINAL REPORT MRI Brain without contrast Clinical [...] Report Verified Date/Time: 08/21/2018 09:25:25 Reading Location: [address] Neuro Reading Room Performing Organization Address City/State/Zipcode Phone Number [employer] MRA neck without IV contrast (08/21/2018 9:20 AM MUSICIAN INSTRUMENTAL) Specimen Narrative Performed At FINAL REPORT Primordial MRA Head CLINICAL HISTORY: Ischemic Stroke TECHNIQUE: MRA of the head utilizing 3-D qiqe-zw-tcmolp technique, with 3-D reconstructions. COMPARISON: None FINDINGS: There is no evidence of intracranial aneurysm, focal stenosis, or major branch vessel occlusion. IMPRESSION: No evidence for a major [place] proximal branch vessel occlusion. MRA Neck CLINICAL HISTORY: Ischemic Stroke TECHNIQUE: MRA of the neck utilizing 2-D and 3-D qjqn-qe-xycgna technique, with 3-D reconstructions. COMPARISON: None FINDINGS: The carotid arteries in the neck are patent including their bifurcations. There is antegrade flow in the vertebral arteries in the neck. IMPRESSION: No evidence of hemodynamically significant stenosis in the cervical carotid or vertebral arteries by NASCET criteria. Signed: Santos Winn MD Report Verified Date/Time:08/21/2018 09:32:09 Reading Location: [address] Neuro Reading Room Procedure Note Interface, External [facility] In - 08/21/2018 9:48 AM MUSICIAN INSTRUMENTAL FINAL REPORT MRA Head CLINICAL HISTORY: Ischemic Stroke TECHNIQUE: MRA of the head utilizing 3-D hntz-pr-ulwqdq technique, with 3-D reconstructions. COMPARISON: None FINDINGS: There is no evidence of intracranial aneurysm, focal stenosis, or major branch vessel occlusion. IMPRESSION: No evidence for a major [place] proximal branch vessel occlusion. MRA Neck CLINICAL HISTORY: Ischemic Stroke TECHNIQUE: MRA of the neck utilizing 2-D and 3-D efln-db-ksrmbh technique, with 3-D reconstructions. COMPARISON: None FINDINGS: The carotid arteries in the neck are patent including their bifurcations. There is antegrade flow in the vertebral arteries in the neck. IMPRESSION: No evidence of hemodynamically significant stenosis in the cervical carotid or vertebral arteries by NASCET criteria. Signed: Santos Winn MD Report Verified Date/Time: 08/21/2018 09:32:09 Reading Location: [address] Neuro Reading Room Performing Organization Address City/State/Zipcode Phone Number [employer] [facility] MRA head without IV contrast (08/21/2018 9:20 AM MUSICIAN INSTRUMENTAL) Specimen Narrative Performed At FINAL REPORT Primordial MRA Head CLINICAL HISTORY: Ischemic Stroke TECHNIQUE: MRA of the head utilizing 3-D dilq-ca-wdurxt technique, with 3-D reconstructions. COMPARISON: None FINDINGS: There is no evidence of intracranial aneurysm, focal stenosis, or major branch vessel occlusion. IMPRESSION: No evidence for a major [place] proximal branch vessel occlusion. MRA Neck CLINICAL HISTORY: Ischemic Stroke TECHNIQUE: MRA of the neck utilizing 2-D and 3-D gmmy-sy-jtqrti technique, with 3-D reconstructions. COMPARISON: None FINDINGS: The carotid arteries in the neck are patent including their bifurcations. There is antegrade flow in the vertebral arteries in the neck. IMPRESSION: No evidence of hemodynamically significant stenosis in the cervical carotid or vertebral arteries by NASCET criteria. Signed: Santos Winn MD Report Verified Date/Time:08/21/2018 09:32:09 Reading Location: [id number] Neuro Reading Room Procedure Note Interface, External [facility] In - 08/21/2018 9:48 AM MUSICIAN INSTRUMENTAL FINAL REPORT MRA Head CLINICAL HISTORY: Ischemic Stroke TECHNIQUE: MRA of the head utilizing 3-D tnlq-kd-adpbvj technique, with 3-D reconstructions. COMPARISON: None FINDINGS: There is no evidence of intracranial aneurysm, focal stenosis, or major branch vessel occlusion. IMPRESSION: No evidence for a major [place] proximal branch vessel occlusion. MRA Neck CLINICAL HISTORY: Ischemic Stroke TECHNIQUE: MRA of the neck utilizing 2-D and 3-D yftk-ji-mehjgv technique, with 3-D reconstructions. COMPARISON: None FINDINGS: The carotid arteries in the neck are patent including their bifurcations. There is antegrade flow in the vertebral arteries in the neck. IMPRESSION: No evidence of hemodynamically significant stenosis in the cervical carotid or vertebral arteries by NASCET criteria. Signed: Santos Winn MD Report Verified Date/Time: 08/21/2018 09:32:09 Reading Location: [facility] [id number] Neuro Reading Room Performing Organization Address City/State/Zipcode Phone Number [facility] XR chest 1 view portable / bedside (08/20/2018 11:52 AM MUSICIAN INSTRUMENTAL) Specimen Narrative Performed At FINAL REPORT [facility] RAD, CHEST, 1 VIEW, NON DEPT INDICATION: [...] MD Report Verified Date/Time:08/20/2018 12:04:06 Reading Location: [facility] Radiology Reading Room Procedure Note Interface, External Ris In - 08/20/2018 12:53 PM MUSICIAN INSTRUMENTAL FINAL REPORT RAD, CHEST, 1 VIEW, NON [...] Report Verified Date/Time: 08/20/2018 12:04:06 Reading Location: [facility] Radiology Reading Room Performing Organization Address City/[facility]/Zipcode Phone Number RIS Basic metabolic panel (08/20/2018 6:03 AM MUSICIAN INSTRUMENTAL)Only the most recent of3 resultswithin the time period is included. Sodium 140 136 - 145 meq/L [facility] Potassium 4.0 3.5 - 5.1 meq/L [facility] Chloride 108 (H) 98 - 107 meq/L [facility] CO2 25 22 - 29 meq/L [facility] BUN 11 7 - 21 mg/dL [facility] Creatinine 0.69 0.57 - 1.25 mg/dL [facility] Glucose 94 70 - 105 mg/dL [facility] Calcium 9.5 8.4 - 10.2 mg/dL [facility] EGFR 96Comment: ESTIMATED GFR IS mL/min/1.73 sq m [facility] NOT ACCURATE CREATININE [facility] CENTER CLEARANCE IN PREDICTING GLOMERULAR FILTRATION RATE. ESTIMATED GFR IS NOT APPLICABLE FOR DIALYSIS PATIENTS. Specimen Blood Performing Organization Address [facility] Hospitalcode Phone Number [address] [address] [phone] CENTER ECHOCARDIOGRAM REPORT - SCAN (08/19/2018 4:20 PM MUSICIAN INSTRUMENTAL) Narrative Performed At Vitamin B12 and Folate (08/19/2018 4:44 AM MUSICIAN INSTRUMENTAL) Vitamin B12 524 213 - 816 pg/mL [facility] Folate 13.5 >=7.0 ng/mL [facility] Specimen Blood Performing Organization Address City/[facility]/Zipcode Phone Number [place] [phone] [place] [address] CENTER 2D Echo W/Doppler(CW/PW/Color) (08/18/2018 5:34 PM MUSICIAN INSTRUMENTAL) Ejection 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 Rocío Koenig [facility] JametIPhysician CHAVA Lopez Procedure Type of Study [...] External Ris In - 08/19/2018 3:36 PM [facility]STRUMENTAL Transthoracic Echocardiography Report (TTE) Demographics Patient Name HARSH JENNI Date of Study 08/18/2018 SALMA Gender Female Visit Number [id number] Race Unknown Room Number 2443 Number Date of 1980 Referring Physician Antonio CHAUDHARI Age 38 year(s) 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 Rocío Koenig [employer] 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 Prakash Jo Interpreting Gerhard Brennan Physician Procedure [...] TR Gradient: 16.82 mmHg Performing Organization Address City/[facility] Hospitalcode Phone Number [facility] ECHO HEARTLAB MKCKESSON CPACS TSH/Free T4 If Indicated (08/18/2018 3:44 AM MUSICIAN INSTRUMENTAL) TSH 3.18 0.35 - 4.94 uIU/mL [facility] Specimen Blood Performing Organization Address City/[facility] Hospitalcode Phone Number [address] [address] [place] RPR (08/18/2018 3:44 AM MUSICIAN INSTRUMENTAL) RPR Nonreactive Nonreactive [facility] Specimen Blood Performing Organization Address [facility] Hospitalcode Phone Number [address] [address] [place] CBC (Hemogram only) (08/18/2018 3:44 AM MUSICIAN INSTRUMENTAL) WBC 5.7 3.5 - 10.5 K/L [facility] RBC 4.44 3.93 - 5.22 M/L [facility] Hemoglobin 12.9 11.2 - 15.7 GM/DL [facility] Hematocrit 39.8 34.1 - 44.9 % [facility] MCV 89.6 79.4 - 94.8 fL [facility] MCH 29.1 25.6 - 32.2 pg [facility] MCHC 32.4 32.2 - 35.5 GM/DL [facility] RDW 12.6 11.7 - 14.4 % [facility] Platelets 210 150 - 450 K/CU MM [facility] MPV 10.3 9.4 - 12.3 fL [facility] nRBC 0 0 - 0 /100 WBC [facility] Specimen Blood Performing Organization Address City/State/Zipcode Phone Number [address] [address] CENTER Hemoglobin A1c (08/18/2018 3:44 AM MUSICIAN INSTRUMENTAL) Hemoglobin A1C 5.3 4.3 - 6.1 % [facility] Specimen Blood Performing Organization Address City/[facility]/Zipcode Phone Number [address] [address] [phone] CENTER Hepatic function panel (08/18/2018 3:44 AM MUSICIAN INSTRUMENTAL) Protein, Total 6.9Comment: Specimen 6.0 - 8.3 gm/dL [facility] slightly hemolyzed [facility] Albumin 3.8Comment: Specimen 3.5 - 5.0 g/dL [facility] slightly hemolyzed [facility] Total Bilirubin 0.3Comment: Specimen 0.2 - 1.2 mg/dL [facility] hemolyzed [facility] Bilirubin, Direct 0.1Comment: Specimen 0.1 - 0.5 mg/dL [facility] hemolyzed [facility] Alkaline Phosphatase 95 40 - 150 U/L [facility] AST 20Comment: Specimen 5 - 34 U/L [facility] hemolyzed [facility] ALT 13Comment: Specimen 6 - 55 U/L [facility] hemolyzed [facility] Specimen Blood Performing Organization Address [facility] Hospitalconm Phone Number [facility] [address] [place] [address] [phone] [place] Lipid panel (08/18/2018 3:44 AM MUSICIAN INSTRUMENTAL) Triglycerides 121Comment: Specimen slightly mg/dL [facility] Cholesterol 172Comment: Specimen slightly mg/dL [facility] HDL 36 mg/dL [facility] LDL Calculated 112 mg/dL [facility] Specimen Blood Narrative Performed At Triglyceride Reference Range: [facility] Low Risk <150 [id number] High Risk 200-499 Very High Risk>=500 Cholesterol Reference Range: Low Risk <200 [id number] High Risk>240 HDL Cholesterol Reference Range: Low Risk >=60 High Risk <40 LDL Cholesterol Reference Range: Optimal<100 Near Bfesafm177-593 [id number] Oulg235-159 Very High >=190 Performing Organization Address City/State/Zipcode Phone Number [facility] [address] [place] [address] [place] after 02/21/2018 Insurance Payer Benefit Plan / Group Subscriber ID Type Phone Address [employer] MEDICAID [place] xxxxxxxxx Advance Directives For more information, please contact:[place] [address] [place] [place], [place] [phone] Code Status Date Activated Date Inactivated Comments Full Code 08/17/2018 7:42 PM This code status was determined by: Patient
--- OUTSIDE RECORDS SUMMARY | 2019-02-22 23:03 | XMS REPORT ---
:1980 Author Organization [facility] Address [address] [place] [address] Care Team Providers Name Role Phone MILTONTAMARA [...] Facility Department ID 2017-09-06 2017-09-08 [id number] 10:12:00 02:32:00 LYLY Results Test Description Test Time Test Comments Text Results Atomic Results Result Comments POCT-GLUCOSE METER 2018-08-21 10:22:00 Test Item Value Reference Range Comments POC-GLUCOSE METER (BEAKER) (test 102 mg/dL 70-110 TESTED AT [facility] [address] [facility] pstl=0080) [facility] [id number] MR, MRA, BRAIN, WITHOUT [id number] 09:32:00Reason for exam:-> Ischemic Stroke EvaluationFINAL REPORT MRA Head CLINICAL HISTORY: Ischemic Stroke TECHNIQUE: MRA of the head utilizing 3-D time-of- flight technique, with 3-D reconstructions. COMPARISON: None FINDINGS: There is no evidence of intracranial aneurysm, focal stenosis, or major branch vessel occlusion. IMPRESSION: No evidence for a major [place] proximal branch vessel occlusion. MRA Neck CLINICAL HISTORY: Ischemic Stroke TECHNIQUE : MRA of the neck utilizing 2-D and 3-D ktip-aa-qivvaf technique, with 3-D reconstructions. COMPARISON: None FINDINGS: The carotid arteries in the neck are patent including their bifurcations. There is antegrade flow in the vertebral arteries in the neck. IMPRESSION: No evidence of hemodynamically significant stenosis in the cervical carotid or vertebral arteries by NASCET criteria. Signed: Santos Neff MDReport Verified Date/Time: 08/21/2018 09:32: 09 Reading Location: [address] Neuro Reading Room MR, MRA, NECK, WITHOUT IV [id number] 09:32:00Reason for exam:->Ischemic Stroke EvaluationFINAL REPORT MRA Head CLINICAL HISTORY: Ischemic Stroke TECHNIQUE: MRA of the head utilizing 3-D eblq-wn-izztau technique, with 3-D reconstructions. COMPARISON: None FINDINGS: There is no evidence of intracranial aneurysm, focal stenosis, or major branch vessel occlusion. IMPRESSION: No evidence for a major [place] proximal branch vessel occlusion. MRA Neck CLINICAL HISTORY: Ischemic Stroke TECHNIQUE: MRA of the neck utilizing 2-D and 3-D ilil-hs-ovqmiw technique, with 3-D reconstructions. COMPARISON: None FINDINGS: The carotid arteries in the neck are patent including their bifurcations. There is antegrade flow in the vertebral arteries in the neck. IMPRESSION: No evidence of hemodynamically significant stenosis in the cervical carotid or vertebral arteries by NASCET criteria. Signed: Santos Neff MDRiman Verified Date/Time: 08/21/2018 09:32:09 Reading Location: [address] Neuro Reading Room MR, BRAIN, WITHOUT [id number] 09:25: 00Reason for exam:->Ischemic Stroke EvaluationFINAL REPORT [...] Verified Date/Time: 08/21/2018 09:25:25 Reading Location : [facility] C013V Neuro Reading Room POCT-GLUCOSE [id number] 21:26:00 Test Item Value Reference Range Comments POC-GLUCOSE METER (BEAKER) 119 mg/dL 70-110 TESTED AT [address] (test rtlo=3160) [facility] [id number] POCT-GLUCOSE [id number] 18:03:00 Test Item Value Reference Range Comments POC-GLUCOSE METER (BEAKER) 119 mg/dL 70-110 TESTED AT [address] (test zegk=9091) [place] [id number] POCT-GLUCOSE [id number] 12:39:00 Test Item Value Reference Range Comments POC-GLUCOSE METER (BEAKER) 120 mg/dL 70-110 TESTED AT [address] (test moxw=4925) [facility] [address] RAD, CHEST, 1 VIEW, NON [id number] 12:04:00Reason for exam:->To Locate Heart Device (Pacemaker)Should [...] MDReport Verified Date/Time: 08/20/2018 12:04:06 [facility] POCT-GLUCOSE [id number] 09:17:00 Test Item Value Reference Range Comments POC-GLUCOSE METER (BEAKER) 121 mg/dL 70-110 TESTED AT [address] (test woyv=9487) [facility] [address] BASIC METABOLIC [id number] 06:56:00 Test Item Value Reference Range Comments SODIUM (BEAKER) (test 140 meq/L 136-145 wfdu=672) POTASSIUM (BEAKER) (test 4.0 meq/L 3.5-5.1 szqj=448) CHLORIDE (BEAKER) (test 108 meq/L 98-107 hwif=754) CO2 (BEAKER) (test 25 meq/L 22-29 aopm=946) BLOOD UREA NITROGEN 11 mg/dL 7-21 (BEAKER) (test algu=031) CREATININE (BEAKER) (test 0.69 mg/dL 0.57-1.25 ryiu=455) GLUCOSE RANDOM (BEAKER) 94 mg/dL 70-105 (test wfss=833) CALCIUM (BEAKER) (test 9.5 mg/dL 8.4-10.2 yopi=362) EGFR (BEAKER) (test 96 mL/min/1.73 sq m ESTIMATED GFR IS NOT yrfr=7860) ACCURATE CREATININE CLEARANCE IN PREDICTING GLOMERULAR FILTRATION RATE. ESTIMATED GFR IS NOT APPLICABLE FOR DIALYSIS PATIENTS. POCT-GLUCOSE [id number] 21:09:00 Test Item Value Reference Range Comments POC-GLUCOSE METER (BEAKER) 109 mg/dL 70-110 TESTED AT [address] (test acin=2319) [place] [id number] POCT-GLUCOSE [id number] 17:15:00 Test Item Value Reference Range Comments POC-GLUCOSE METER (BEAKER) 117 mg/dL 70-110 TESTED AT [address] (test nlqq=9344) [place] [address] VITAMIN B12 AND [id number] 06:39:00 Test Item Value Reference Range Comments VITAMIN B12 (BEAKER) (test svkw=551) 524 pg/mL 213-816 FOLATE (BEAKER) (test ujnh=132) 13.5 ng/mL >=7.0 BASIC METABOLIC [id number] 05:48:00 Test Item Value Reference Range Comments SODIUM (BEAKER) (test 139 meq/L 136-145 uvnl=648) POTASSIUM (BEAKER) (test 4.0 meq/L 3.5-5.1 frbg=806) CHLORIDE (BEAKER) (test 107 meq/L 98-107 ciop=423) CO2 (BEAKER) (test 24 meq/L 22-29 acfa=039) BLOOD UREA NITROGEN 11 mg/dL 7-21 (BEAKER) (test juqd=078) CREATININE (BEAKER) (test 0.72 mg/dL 0.57-1.25 jwfk=907) GLUCOSE RANDOM (BEAKER) 107 mg/dL 70-105 (test ktvq=516) CALCIUM (BEAKER) (test 9.5 mg/dL 8.4-10.2 pkkz=471) EGFR (BEAKER) (test 91 mL/min/1.73 sq m ESTIMATED GFR IS NOT sptp=9212) ACCURATE CREATININE CLEARANCE IN PREDICTING GLOMERULAR FILTRATION RATE. ESTIMATED GFR IS NOT APPLICABLE FOR DIALYSIS PATIENTS. [id number] 15:42:00 Test Item Value Reference Range Comments RPR SCREEN (BEAKER) (test guux=229) Nonreactive Nonreactive HEMOGLOBIN [id number] 09:14:00 Test Item Value Reference Range Comments HEMOGLOBIN A1C (BEAKER) (test lleh=834) 5.3 % 4.3-6.1 TSH/FREE T4 IF [id number] 04:49:00 Test Item Value Reference Range Comments THYROID STIMULATING HORMONE (BEAKER) (test 3.18 uIU/mL 0.35-4.94 peix=358) BASIC METABOLIC [id number] 04:38:00 Test Item Value Reference Range Comments SODIUM (BEAKER) (test 139 meq/L 136-145 qtzv=512) POTASSIUM (BEAKER) (test 4.2 meq/L 3.5-5.1 Specimen slightly rltk=675) hemolyzed CHLORIDE (BEAKER) (test 107 meq/L 98-107 mrpn=235) CO2 (BEAKER) (test 26 meq/L 22-29 ndui=650) BLOOD UREA NITROGEN 10 mg/dL 7-21 (BEAKER) (test txxn=482) CREATININE (BEAKER) (test 0.73 mg/dL 0.57-1.25 Specimen slightly wldh=519) hemolyzed GLUCOSE RANDOM (BEAKER) 104 mg/dL 70-105 (test ckxq=624) CALCIUM (BEAKER) (test 9.7 mg/dL 8.4-10.2 hadv=030) EGFR (BEAKER) (test 90 mL/min/1.73 sq m ESTIMATED GFR IS NOT tzql=1630) ACCURATE CREATININE CLEARANCE IN PREDICTING GLOMERULAR FILTRATION RATE. ESTIMATED GFR IS NOT APPLICABLE FOR DIALYSIS PATIENTS. LIPID [id number] 04:38:00 Test Item Value Reference Range Comments TRIGLYCERIDES (BEAKER) (test 121 mg/dL Specimen slightly hemolyzed ajcr=319) CHOLESTEROL (BEAKER) (test 172 mg/dL Specimen slightly hemolyzed jwvd=925) HDL CHOLESTEROL (BEAKER) (test 36 mg/dL ahqw=496) LDL CHOLESTEROL CALCULATED 112 mg/dL (BEAKER) (test qkhh=507) Triglyceride Reference Range: Low Risk <150 Borderline 150- 199 High Risk 200-499 Very High Risk >=500Cholesterol Reference Range: Low Risk <200 Borderline 200-239 High Risk > 240HDL Cholesterol Reference Range: Low Risk >=60 High Risk <40LDL Cholesterol Reference Range: Optimal <100 Near Optimal 100-129 Borderline 130-159 High 160-189 Very High >=190HEPATIC FUNCTION [id number] 04:38:00 Test Item Value Reference Range Comments TOTAL PROTEIN (BEAKER) (test 6.9 gm/dL 6.0-8.3 Specimen slightly hemolyzed zwzd=843) ALBUMIN (BEAKER) (test 3.8 g/dL 3.5-5.0 Specimen slightly hemolyzed gvfj=0258) BILIRUBIN TOTAL (BEAKER) (test 0.3 mg/dL 0.2-1.2 Specimen slightly hemolyzed evvm=874) BILIRUBIN DIRECT (BEAKER) (test 0.1 mg/dL 0.1-0.5 Specimen slightly hemolyzed obfl=416) ALKALINE PHOSPHATASE (BEAKER) 95 U/L 40-150 (test bmmq=691) AST (SGOT) (BEAKER) (test 20 U/L 5-34 Specimen slightly hemolyzed gzfm=123) ALT (SGPT) (BEAKER) (test 13 U/L 6-55 Specimen slightly hemolyzed pugk=191) CBC (HEMOGRAM ONLY)2018-08-18 03:55:00 Test Item Value Reference Range Comments WHITE BLOOD CELL COUNT (BEAKER) (test ibfe=365) 5.7 K/ L 3.5-10.5 RED BLOOD CELL COUNT (BEAKER) (test auzw=348) 4.44 M/ L 3.93-5.22 HEMOGLOBIN (BEAKER) (test ntyc=041) 12.9 GM/DL 11.2-15.7 HEMATOCRIT (BEAKER) (test jryz=737) 39.8 % 34.1-44.9 MEAN CORPUSCULAR VOLUME (BEAKER) (test ksua=720) 89.6 fL 79.4-94.8 MEAN CORPUSCULAR HEMOGLOBIN (BEAKER) (test 29.1 pg 25.6-32.2 yfmj=980) MEAN CORPUSCULAR HEMOGLOBIN CONC (BEAKER) (test 32.4 GM/DL 32.2-35.5 lhdx=508) RED CELL DISTRIBUTION WIDTH (BEAKER) (test 12.6 % 11.7-14.4 itqq=692) PLATELET COUNT (BEAKER) (test fhxs=033) 210 K/CU MM 150-450 MEAN PLATELET VOLUME (BEAKER) (test txpu=842) 10.3 fL 9.4-12.3 NUCLEATED RED BLOOD CELLS (BEAKER) (test 0 /100 WBC 0-0 xqpz=935) AFB Culture and [id number] 13:24:00Specimen/Source: Wound/ PACEMAKERCollected: 09/05/2017 19:45 Status: Final Last Updated: 2017 13:24 BLR-Cptkn-Uidiisnudjax (Final) (Final) 09/07/17 No acid fast bacill seen on direct smear Culture Result (Final) (Final) 11/01/17 No growth of AFB at six (6) weeksFungus Culture with [id number] 12:12: 00Specimen/Source: Wound/PACEMAKERCollected: 09/05/2017 19:45 Status: Final Last Updated: 10/22/2017 12:12 Fungal Smear Result (Final) (Final) 09/06/17 No yeast or hyphae seen Culture Result (Final) (Final) 10/22/17 No fungus isolated at 6 weeksCulture, Blood [id number] 08:23:00Specimen: BloodCollected: 09/04/2017 20:30 Status: Final Last Updated: 09/10/2017 08: 23 Culture Result (Final) (Final) No Growth After 5 DaysCulture, Blood [id number] 08:23:00Specimen: BloodCollected: 09/04/2017 20:15 Status: Final Last Updated: 09/10/2017 08:23 Culture Result (Final) (Final) No Growth After 5 DaysCulture, Wound [id number] 08:52:00Specimen: WoundCollected: 09/05/2017 19:45 Status: Final Last Updated: 09/08/2017 08: 52 Gram Stain (Final) (Final) 09/06/17 No organisms seen, Few WBC's Culture Result (Final) (Final) 09/08/17 Anaerobic culture:No anaerobes isolated at 3 days Isolate (Final) (Final) 09/07/17Few Staph-coag positive Isolate Staph-coag positive JERMAINE (mcg/ml) Amoxicillin/Clav (AUG)<=4/2 Susceptible Ampicillin (AM) >8 Resistant Ampicillin/Sulb (A/S) <=8/4 Susceptible Cefazolin (CFZ) <=4 Susceptible Ceftriaxone (MANAGER SOCIAL WORK) <=4 Susceptible Chloramphenicol (C) <=8 Susceptible Ciprofloxacin (CP) <=1 Susceptible Clindamycin (CM) 0.5 Susceptible Erythromycin (E) <=0.25 Susceptible Gentamicin (GM) <=1 Susceptible Imipenem (IMP) <=4 Susceptible Levofloxacin (LEV) <=0.5 Susceptible Linezolid (LNZ) 4 Susceptible Oxacillin (OX1) 0.5 Susceptible Penicillin (P) >8 Resistant Rifampin ( RA) <=1 Susceptible Tetracycline (TE) <=1 Susceptible Trimethoprim/Sulfa <=0.5/9.Susceptible (SXT) 5 Vancomycin (VA) 2 SusceptibleRenal [id number] 08:51: 00 Test Item Value Reference Range [...] race is not provided, and the patient isAfrican-Paragu[place], multiply by 1.212. If sex is not [...] the National Kidney Foundation,http://nkdep.nih .gov CBC with [id number] 07:39:00 Test Item Value Reference Range Comments [...] Lymph Abs (test code=ALYMPH) 1.7 K/cumm 0.5-4.6 Deuel Abs (test code=AMONO) 0.3 K/cumm 0.0-1.2 Eos Abs (test code=AEOS) 0.29 K/cumm 0.00-0.74 Baso Abs (test code=ABASO) 0.0 K/cumm 0.00-0.21 Vancomycin, [id number] 12:33:00 Test Item Value Reference Range Comments Vanco, Trou (test code=VANTR) 7.9 ug/mL 10.0-20.0 Magnesium, [id number] 06:37:00 Test Item Value Reference Range Comments Magnesium (test code=MG) 2.4 mg/dL 1.7-2.5 Renal [id number] 06:29:00 Test Item Value Reference Range Comments [...] race is not provided, and the patient isAfrican-[place]agu[place], multiply by 1.212. If sex is not [...] the National Kidney Foundation,http://nkdep.nih .gov BHCG, Serum, [id number] 06:26:00 Test Item Value Reference Range Comments Preg Qual [Se] (test code=BSHCG) Negative Negative CBC with [id number] 06:24:00 Test Item Value Reference Range Comments [...] Lymph Abs (test code=ALYMPH) 1.6 K/cumm 0.5-4.6 Deuel Abs (test code=AMONO) 0.4 K/cumm 0.0-1.2 Eos Abs (test code=AEOS) 0.18 K/cumm 0.00-0.74 Baso Abs (test code=ABASO) 0.0 K/cumm 0.00-0.21 XR CHEST 1 [id number] 16:29:55XR CHEST 1 VIEWLOCATION: [id number]: None.INDICATION: REVIEW PICC LINE PLACEMENTDISCUSSION:AP chest and [...] TSH (test code=TSH) 3.44 mIU/mL 0.270-4.200 Lipid [id number] 05:47:00 Test Item Value Reference Range Comments Cholesterol (test 160 mg/dL 0-200 code=CHOL) Triglycerides (test 126 mg/dL 9-200 code=TRIG) HDL (test code=HDL) 35 mg/dL 50-60 Chol/HDL (test 4.6 Ratio 0.0-4.4 code=CHOLPHDL) LDL, Calculated (test 100 0-130 (NOTE)RISK OF HEART code=LDLC) DISEASEPublished by [place] Heart AssociationAnalyte Optimal Boderline Increased RiskCHOL <200 200-239 >240TRIG <150 150-199 >200HDL Male: >60 <40HDL Female: >60 <50LDL <100 130-159 >160LDL NEAR OPTIMAL IS 100-129 VLDL (test code=VLDL) 25 mg/dL 5-40 LDL/HDL (test code=LDLPHDL) 3 Basic Metabolic [id number] 05:47:00 Test Item Value Reference Range Comments [...] race is not provided, and the patient isAfrican-[place], multiply by 1.212. If sex is not provided, and thepatient is female, multiply by 0.742. Results for patients <18 years ofage have not been validated by the MDRD study and should be interpretedwith caution.eGFR Result Interpretation:eGFR > or=60 is in the Normal RangeeGFR < 60 may mean kidney diseaseeGFR < 15 may mean kidney failureRanges recommended by the National Kidney Foundation,http://nkdep.nih .gov Magnesium, [id number] 05:47:00 Test Item Value Reference Range Comments Magnesium (test code=MG) 2.3 mg/dL 1.7-2.5 CBC with [id number] 05:36:00 Test Item Value Reference Range Comments [...] Lymph Abs (test code=ALYMPH) 2.2 K/cumm 0.5-4.6 Deuel Abs (test code=AMONO) 0.3 K/cumm 0.0-1.2 Eos Abs (test code=AEOS) 0.24 K/cumm 0.00-0.74 Baso Abs (test code=ABASO) 0.0 K/cumm 0.00-0.21 Partial Thromboplastin [id number] 21:26:00 Test Item Value Reference Range Comments aPTT (test code=PTT) 29.00 seconds 24.39-37.25 Prothrombin [id number] 21:26:00 Test Item Value Reference Range Comments PT (test code=PT) 10.70 seconds 9.78-13.35 INR (test code=INR) 0.95 Ratio 0.6-1.2 Comprehensive Metabolic [id number] 21:23:00 Test Item Value Reference Range Comments [...] race is not provided, and the patient isAfrican-[place], multiply by 1.212. If sex is not [...] the National Kidney Foundation,http://nkdep.nih .gov CBC with [id number] 21:16:00 Test Item Value Reference Range Comments [...] Lymph Abs (test code=ALYMPH) 2.2 K/cumm 0.5-4.6 Deuel Abs (test code=AMONO) 0.4 K/cumm 0.0-1.2 Eos Abs (test code=AEOS) 0.17 K/cumm 0.00-0.74 Baso Abs (test code=ABASO) 0.1 K/cumm 0.00-0.21
--- NOTE | 2019-02-23 00:24 | ER ---
Nurse's Notes [facility] Name: Jenni Rivera Age: 38 yrs Sex: Female : 1980 Arrival Date: 02/22/2019 Time: 23:09 Bed 15 Private MD: Diagnosis: Pain in left knee;Fall on same level from slipping, tripping and stumbling Presentation: 02/22 23:31 Presenting complaint: Patient states: "I fell around 6 pm and twisted/hurt my left leg. jd3 I am having pain above the left knee and foot/toe pain. I took Tylenol around 6:30 pm and it didn't help.". Transition of care: patient was not received from another setting of care. Onset of symptoms was February 22, 2019. Risk Assessment: Do you want to hurt yourself or someone else? Patient reports no desire to harm self or others. Initial Sepsis Screen: Does the patient meet any 2 criteria? No. Patient's initial sepsis screen is negative. Does the patient have a suspected source of infection? No. Patient's initial sepsis screen is negative. Care prior to arrival: Medication(s) given: Tylenol. 23:31 Method Of Arrival: Wheelchair jd3 23:31 Acuity: LYUBOV 4 jd3 Historical: - Allergies: 23:40 Adhesives; jd3 23:40 Aspirin; jd3 23:40 Bactrim; jd3 23:40 Benadryl; jd3 23:40 Ciprofloxacin; jd3 23:40 Clindamycin; jd3 23:40 Codeine; jd3 23:40 Detrol; jd3 23:40 GABAPENTIN; jd3 23:40 Iodine; jd3 23:40 Latex, Natural Rubber; jd3 23:40 Morphine; jd3 23:40 PENICILLINS; jd3 23:40 Seroquel; jd3 23:40 Sulfa (Sulfonamide Antibiotics); jd3 23:40 tramadol; jd3 - Home Meds: 23:40 Abilify 10 mg Oral tab 1 tab once daily [Active]; Abilify 5 mg Oral tab 1 tab nightly jd3 [Active]; albuterol sulfate 1.25 mg/3 mL Inhl nebu 3 mL 3 times per day [Active]; apixaban 5 mg BID Oral [Active]; atorvastatin 10 mg Oral tab 1 tab once daily [Active]; benztropine 1 mg Oral tab 1 tab 2 times per day [Active]; Breo Ellipta 100-25 mcg/dose inhalation dsdv 1 puff once daily [Active]; buspirone 15 mg Oral tab 1 tab 2 times per day [Active]; Coreg 25 mg Oral tab 1 tab 2 times per day [Active]; Daliresp 500 mcg Oral tab 1 tab once daily [Active]; digoxin 125 mcg Oral tab 1 tab once daily [Active]; esomeprazole magnesium 40 mg Oral cpDR 1 cap once daily [Active]; Keppra 1,000 mg Oral tab 1 tab every 12 hours [Active]; ketorolac 10 mg Oral tab 1 tab every 6 hours [Active]; levothyroxine 150 mcg tab 1 tab once daily [Active]; loratadine 10 mg Oral tab 1 tab once daily [Active]; methocarbamol 500 mg Oral tab 1 tabs 4 times per day [Active]; Ranexa 500 mg Oral Tb12 1 tab 2 times per day [Active]; Spiriva with HandiHaler 18 mcg inhalation CpDv 1 cap once daily [Active]; Topamax 100 mg Oral tab 2 tabs 2 times per day [Active]; venlafaxine 150 mg Oral cp24 1 cap once daily [Active]; Xanax 0.25 mg Oral tab 1 tab PRN [Active]; - PMHx: 23:40 mitral valve prolapse; Anxiety; Asthma; Back pain; Bronchitis; Hypertension; jd3 HYPOGLYCEMIA; Hypothyroidism; internal heart monitor; Kidney stones; Myocardial infarction; neuropathy; Pacemaker; Seizures; sick sinus syndrome; TIA; Upper Resp Infection; Anemia; - PSHx: 23:40 pacemaker; jd3 - Immunization history:: Adult Immunizations up to date. - Social history:: Smoking status: Patient/guardian denies using tobacco. - Ebola Screening: : Patient negative for fever greater than or equal to 101.5 degrees Fahrenheit, and additional compatible Ebola Virus Disease symptoms. Screenin:48 Abuse screen: Denies threats or abuse. Denies injuries from another. Nutritional ed1 screening: No deficits noted. Tuberculosis screening: No symptoms or risk factors identified. Fall Risk None identified. Assessment: 23:48 General: Appears uncomfortable, Behavior is calm, cooperative. Pain: Complains of pain ed1 in left leg Pain currently is 8 out of 10 on a pain scale. Neuro: Level of Consciousness is awake, alert, obeys commands, Oriented to person, place, time, situation. Cardiovascular: Denies chest pain, Heart tones S1 S2 present. Respiratory: Airway is patent Respiratory effort is even, unlabored, Respiratory pattern is regular, symmetrical, Breath sounds are clear bilaterally. GI: No signs and/or symptoms were reported involving the gastrointestinal system. : No signs and/or symptoms were reported regarding the genitourinary system. EENT: No signs and/or symptoms were reported regarding the EENT system. Derm: Skin is intact, is healthy with good turgor, Skin is dry, Skin is normal, Skin temperature is warm. Musculoskeletal: Circulation, motion, and sensation intact. Range of motion: intact in all extremities, Reports pain in left leg. 02/23 00:36 Reassessment: Patient appears in no apparent distress at this time. No changes from ed1 previously documented assessment. Patient and/or family updated on plan of care and expected duration. Pain level reassessed. Patient is alert, oriented x 3, equal unlabored respirations, skin warm/dry/pink. Vital Signs: 02/22 23:40 BP 105 / 76; Pulse 88; Resp 16 S; Temp 98.1(O); Pulse Ox 100% on R/A; Weight 48.08 kg jd3 (R); Height 4 ft. 10 in. (147.32 cm) (R); Pain 8/10; 02/23 00:36 BP 107 / 74; Pulse 83; Resp 17; Pulse Ox 100% on R/A; Pain 8/10; ed1 02/22 23:40 Body Mass Index 22.15 (48.08 kg, 147.32 cm) jd3 ED Course: 02/22 23:09 Patient arrived in ED. es 23:24 Neeru Galvan FNP-C [facility]. snw 23:24 Abdulkadir Naranjo MD is Attending Physician. snw 23:33 Triage completed. jd3 23:41 Arm band placed on. jd3 23:48 Ya Pagan, LAUREL is Primary Nurse. ed1 23:48 Awaiting for x-ray. ed1 23:48 Patient has correct armband on for positive identification. Bed in low position. Call ed1 light in reach. 06/01 00:00 X-ray completed. Portable x-ray completed in exam room. Patient tolerated procedure kw well. 00:01 Tib Fib Left XRAY In Process Unspecified. EDMS 00:36 No provider procedures requiring assistance completed. Patient did not have IV access ed1 during this emergency room visit. Yosi wrap to left knee. Administered Medications: No medications were administered Outcome: 00:23 Discharge ordered by . snw 00:36 Discharged to home ambulatory, with family. ed1 00:36 Condition: good 00:36 Discharge instructions given to patient, Instructed on discharge instructions, follow up and referral plans. Demonstrated understanding of instructions, follow-up care. 00:38 Patient left the ED. ed1 Signatures: Dispatcher [employer] EDNeeru Hernandez FNP-C OCCUPATIONAL THERAPY SPECIALIST-Leelee John Erika RN RN ed1 Bea Mederos Jonathon, RN RN jd3
--- NOTE | 2019-02-23 00:25 | EDPHYS ---
Physician Documentation [facility] Name: Jenni Rivera Age: 38 yrs Sex: Female : 1980 Arrival Date: 02/22/2019 Time: 23:09 Bed 15 Private MD: ED Physician Abdulkadir Naranjo HPI: 02/22 23:57 This 38 yrs old Female presents to ER via Wheelchair with complaints of Fall snw Injury, Leg Injury. 23:57 Details of fall: The patient fell from an upright position, while walking. Onset: The snw symptoms/episode began/occurred suddenly, just prior to arrival. Associated injuries: The patient sustained left leg. Severity of symptoms: At their worst the symptoms were moderate. The patient has not experienced similar symptoms in the past. It is unknown whether or not the patient has recently seen a physician. in the pig pen and slid in the mud and twisted left knee/lower leg. Historical: - Allergies: 23:40 Adhesives; jd3 23:40 Aspirin; jd3 23:40 Bactrim; jd3 23:40 Benadryl; jd3 23:40 Ciprofloxacin; jd3 23:40 Clindamycin; jd3 23:40 Codeine; jd3 23:40 Detrol; jd3 23:40 GABAPENTIN; jd3 23:40 Iodine; jd3 23:40 Latex, Natural Rubber; jd3 23:40 Morphine; jd3 23:40 PENICILLINS; jd3 23:40 Seroquel; jd3 23:40 Sulfa (Sulfonamide Antibiotics); jd3 23:40 tramadol; jd3 - Home Meds: 23:40 Abilify 10 mg Oral tab 1 tab once daily [Active]; Abilify 5 mg Oral tab 1 tab nightly jd3 [Active]; albuterol sulfate 1.25 mg/3 mL Inhl nebu 3 mL 3 times per day [Active]; apixaban 5 mg BID Oral [Active]; atorvastatin 10 mg Oral tab 1 tab once daily [Active]; benztropine 1 mg Oral tab 1 tab 2 times per day [Active]; Breo Ellipta 100-25 mcg/dose inhalation dsdv 1 puff once daily [Active]; buspirone 15 mg Oral tab 1 tab 2 times per day [Active]; Coreg 25 mg Oral tab 1 tab 2 times per day [Active]; Daliresp 500 mcg Oral tab 1 tab once daily [Active]; digoxin 125 mcg Oral tab 1 tab once daily [Active]; esomeprazole magnesium 40 mg Oral cpDR 1 cap once daily [Active]; Keppra 1,000 mg Oral tab 1 tab every 12 hours [Active]; ketorolac 10 mg Oral tab 1 tab every 6 hours [Active]; levothyroxine 150 mcg tab 1 tab once daily [Active]; loratadine 10 mg Oral tab 1 tab once daily [Active]; methocarbamol 500 mg Oral tab 1 tabs 4 times per day [Active]; Ranexa 500 mg Oral Tb12 1 tab 2 times per day [Active]; Spiriva with HandiHaler 18 mcg inhalation CpDv 1 cap once daily [Active]; Topamax 100 mg Oral tab 2 tabs 2 times per day [Active]; venlafaxine 150 mg Oral cp24 1 cap once daily [Active]; Xanax 0.25 mg Oral tab 1 tab PRN [Active]; - PMHx: 23:40 mitral valve prolapse; Anxiety; Asthma; Back pain; Bronchitis; Hypertension; jd3 HYPOGLYCEMIA; Hypothyroidism; internal heart monitor; Kidney stones; Myocardial infarction; neuropathy; Pacemaker; Seizures; sick sinus syndrome; TIA; Upper Resp Infection; Anemia; - PSHx: 23:40 pacemaker; jd3 - Immunization history:: Adult Immunizations up to date. - Social history:: Smoking status: Patient/guardian denies using tobacco. - Ebola Screening: : Patient negative for fever greater than or equal to 101.5 degrees Fahrenheit, and additional compatible Ebola Virus Disease symptoms. ROS: 23:42 Constitutional: Negative for fever, chills, and weight loss, Eyes: Negative for injury, snw pain, redness, and discharge, ENT: Negative for injury, pain, and discharge, Neck: Negative for injury, pain, and swelling, Cardiovascular: Negative for chest pain, palpitations, and edema, Respiratory: Negative for shortness of breath, cough, wheezing, and pleuritic chest pain, Abdomen/GI: Negative for abdominal pain, nausea, vomiting, diarrhea, and constipation, Back: Negative for injury and pain, : Negative for injury, bleeding, discharge, and swelling, Skin: Negative for injury, rash, and discoloration, Neuro: Negative for headache, weakness, numbness, tingling, and seizure, Psych: Negative for depression, anxiety, suicide ideation, homicidal ideation, and hallucinations. 23:42 MS/extremity: Positive for pain, tenderness, of the left leg. Exam: 23:41 Constitutional: This is a well developed, well nourished patient who is awake, alert, snw and in no acute distress. Head/Face: Normocephalic, atraumatic. Eyes: Pupils equal round and reactive to light, extra-ocular motions intact. Lids and lashes normal. Conjunctiva and sclera are non-icteric and not injected. Cornea within normal limits. Periorbital areas with no swelling, redness, or edema. ENT: Nares patent. No nasal discharge, no septal abnormalities noted. Tympanic membranes are normal and external auditory canals are clear. Oropharynx with no redness, swelling, or masses, exudates, or evidence of obstruction, uvula midline. Mucous membranes moist. Neck: Trachea midline, no thyromegaly or masses palpated, and no cervical lymphadenopathy. Supple, full range of motion without nuchal rigidity, or vertebral point tenderness. No Meningismus. Chest/axilla: Normal chest wall appearance and motion. Nontender with no deformity. No lesions are appreciated. Cardiovascular: Regular rate and rhythm with a normal S1 and S2. No gallops, murmurs, or rubs. Normal PMI, no JVD. No pulse deficits. Respiratory: Lungs have equal breath sounds bilaterally, clear to auscultation and percussion. No rales, rhonchi or wheezes noted. No increased work of breathing, no retractions or nasal flaring. Abdomen/GI: Soft, non-tender, with normal bowel sounds. No distension or tympany. No guarding or rebound. No evidence of tenderness throughout. Back: No spinal tenderness. No costovertebral tenderness. Full range of motion. Skin: Warm, dry with normal turgor. Normal color with no rashes, no lesions, and no evidence of cellulitis. Neuro: Awake and alert, GCS 15, oriented to person, place, time, and situation. Cranial nerves II-XII grossly intact. Motor strength 5/5 in all extremities. Sensory grossly intact. Cerebellar exam normal. Normal gait. Psych: Awake, alert, with orientation to person, place and time. Behavior, mood, and affect are within normal limits. 23:41 Musculoskeletal/extremity: Extremities: grossly normal except: noted in the lateral aspect of left knee and left briggs: pain, ROM: limited active range of motion due to pain, Circulation is intact in all extremities. Sensation intact. Vital Signs: 23:40 BP 105 / 76; Pulse 88; Resp 16 S; Temp 98.1(O); Pulse Ox 100% on R/A; Weight 48.08 kg jd3 (R); Height 4 ft. 10 in. (147.32 cm) (R); Pain 8/; 02/23 00:36 BP 107 / 74; Pulse 83; Resp 17; Pulse Ox 100% on R/A; Pain 8/10; ed1 02/22 23:40 Body Mass Index 22.15 (48.08 kg, 147.32 cm) jd3 MDM: 02/22 23:24 Patient medically screened. snw 02/23 00:23 Data reviewed: vital signs, nurses notes. Data interpreted: Pulse oximetry: on room air snw is 100 %. Interpretation: normal. Counseling: I had a detailed discussion with the patient and/or guardian regarding: the historical points, exam findings, and any diagnostic results supporting the discharge/admit diagnosis, radiology results, the need for outpatient follow up, to return to the emergency department if symptoms worsen or persist or if there are any questions or concerns that arise at home. Special discussion: Based on the history and exam findings, there is no indication for further emergent testing or inpatient evaluation. I discussed with the patient/guardian the need to see the orthopedic surgeon for further evaluation of the symptoms. I discussed with the patient/guardian the need to see the primary care provider for further evaluation of the symptoms. 02/22 23:39 Order name: Tib Fib Left XRAY snw 02/22 23:39 Order name: Ice pack; Complete Time: 00:01 snw 02/23 00:22 Order name: Yosi wrap-joint; Complete Time: 00:36 snw Administered Medications: No medications were administered Disposition: 02/23/19 00:23 Discharged to Home. Impression: Pain in left knee, Fall on same level from slipping, tripping and stumbling. - Condition is Stable. - Discharge Instructions: Elastic Bandage and RICE, Joint Pain, Knee Pain, Cryotherapy, [id number]. - Medication Reconciliation Form, Thank You Letter, Antibiotic Education, Prescription Opioid Use form. - Follow up: Private Physician; When: 2 - 3 days; Reason: Recheck today's complaints, Continuance of care, Re-evaluation by your physician. Follow up: Emergency Department; When: As needed; Reason: Worsening of condition. Signatures: Dispatcher [facility] [facility] Neeru Galvan, [employer] Ya Pagan RN RN ed1 Fritz Cho RN RN jd3 Corrections: (The following items were deleted from the chart) 00:38 00:23 02/23/2019 00:23 Discharged to Home. Impression: Pain in left knee; Fall on same ed1 level from slipping, tripping and stumbling. Condition is Stable. Forms are Medication Reconciliation Form, Thank You Letter, Antibiotic Education, Prescription Opioid Use. Follow up: Private Physician; When: 2 - 3 days; Reason: Recheck today's complaints, Continuance of care, Re-evaluation by your physician. Follow up: Emergency Department; When: As needed; Reason: Worsening of condition. snw
[2019-02-23 02:49] VITALS: TEMP 98.1; O2SAT 100
[2019-02-23 02:51] VITALS: BP 107/74
--- NOTE | 2019-02-23 11:25 | RAD REPORT ---
EXAM DESCRIPTION: RAD - Tib Fib Left - 02/23/2019 12:00 am CLINICAL HISTORY: PAIN COMPARISON: No comparisons FINDINGS: No fracture or dislocation seen.
== END 2019-02-23 00:38 | disposition home or self-care (01) ==
LOC: ER 22:59
DX: M25.562 Pain in left knee (principal); W01.0XXA Fall on same level from slipping, tripping and stumbling without subsequent striking against object, initial encounter; F41.9 Anxiety disorder, unspecified; J45.909 Unspecified asthma, uncomplicated; I10 Essential (primary) hypertension; E03.9 Hypothyroidism, unspecified; I25.2 Old myocardial infarction; Z86.73 Personal history of transient ischemic attack (TIA), and cerebral infarction without residual deficits; D64.9 Anemia, unspecified; Z88.5 Allergy status to narcotic agent; Z88.0 Allergy status to penicillin; Z88.2 Allergy status to sulfonamides; Z88.6 Allergy status to analgesic agent; Z88.1 Allergy status to other antibiotic agents; Z91.040 Latex allergy status
CPT/HCPCS: 99283

== ENCOUNTER 2019-03-03 13:21 | Emergency (ER) | payer MEDICAID ==
--- OUTSIDE RECORDS SUMMARY | 2019-03-03 13:24 | XMS REPORT | Clinical Summary ---
:1980 Author Organization [facility] Address [address] [place] [address] Care Team Providers Name Role Phone Diya [...] Antonio Gray MD Arif, Sahar, MD after 03/02/2018 Social History Tobacco Use Types Packs/Day Years [...] Taken Blood Pressure 90/57 08/21/2018 12:05 PM LAND ACQUISITION ANALYST Pulse 94 08/21/2018 12:05 PM LAND ACQUISITION ANALYST Temperature 37 C (98.6 F) 08/21/2018 12:05 PM LAND ACQUISITION ANALYST Respiratory Rate 17 08/21/2018 12:05 PM LAND ACQUISITION ANALYST Oxygen Saturation 99% 08/21/2018 12:05 PM LAND ACQUISITION ANALYST Inhaled Oxygen Concentration 21% 08/19/2018 3:10 AM LAND ACQUISITION ANALYST Weight 49.9 kg (110 lb) 08/18/2018 12:00 PM LAND ACQUISITION ANALYST Height 151.1 cm (4' 11.5") 08/18/2018 12:00 PM LAND ACQUISITION ANALYST Body Mass Index 21.85 08/18/2018 12:00 PM LAND ACQUISITION ANALYST Plan of Treatment Not on file Procedures Procedure Name Priority Date/Time Associated Comments Diagnosis ARRYTHMIA IMPLANT 11/12/2018 1:43 REPORT - SCAN PM LAND ACQUISITION ANALYST ARRYTHMIA IMPLANT 11/12/2018 1:43 REPORT - SCAN PM LAND ACQUISITION ANALYST ARRYTHMIA IMPLANT 11/12/2018 1:43 REPORT - SCAN PM LAND ACQUISITION ANALYST RHYTHM STRIP - SCAN 08/22/2018 11:10 AM LAND ACQUISITION ANALYST POCT-GLUCOSE METER Routine 08/21/2018 10:17 Results for this AM LAND ACQUISITION ANALYST procedure are in the results section. MR BRAIN WITHOUT IV Routine 08/21/2018 9:20 Results for this CONTRAST AM LAND ACQUISITION ANALYST procedure are in the results section. MR MRA NECK WITHOUT IV Routine 08/21/2018 9:20 Results for this CONTRAST AM LAND ACQUISITION ANALYST procedure are in the results section. MR MRA HEAD WITHOUT Routine 08/21/2018 9:20 Results for this CONTRAST AM LAND ACQUISITION ANALYST procedure are in the results section. POCT-GLUCOSE METER Routine 08/20/2018 9:22 Results for this PM LAND ACQUISITION ANALYST procedure are in the results section. POCT-GLUCOSE METER Routine 08/20/2018 5:54 Results for this PM LAND ACQUISITION ANALYST procedure are in the results section. POCT-GLUCOSE METER Routine 08/20/2018 12:34 Results for this PM LAND ACQUISITION ANALYST procedure are in the results section. XR CHEST 1 VIEW STAT 08/20/2018 11:52 Results for this PORTABLE/BEDSIDE AM LAND ACQUISITION ANALYST procedure are in the results section. POCT-GLUCOSE METER Routine 08/20/2018 9:00 Results for this AM LAND ACQUISITION ANALYST procedure are in the results section. BASIC METABOLIC PANEL Routine 08/20/2018 6:03 Results for this (7) AM LAND ACQUISITION ANALYST procedure are in the results section. POCT-GLUCOSE METER Routine 08/19/2018 9:00 Results for this PM LAND ACQUISITION ANALYST procedure are in the results section. POCT-GLUCOSE METER Routine 08/19/2018 4:57 Results for this PM LAND ACQUISITION ANALYST procedure are in the results section. ECHOCARDIOGRAM REPORT - 08/19/2018 4:20 SCAN PM LAND ACQUISITION ANALYST VITAMIN B12 AND FOLATE Routine 08/19/2018 4:44 Results for this AM LAND ACQUISITION ANALYST procedure are in the results section. BASIC METABOLIC PANEL Routine 08/19/2018 4:44 Results for this (7) AM LAND ACQUISITION ANALYST procedure are in the results section. 2D ECHO W/ DOPPLER Routine 08/18/2018 5:34 Results for this (CW/PW/COLOR) PM LAND ACQUISITION ANALYST procedure are in the results section. RPR Routine 08/18/2018 3:44 Results for this AM LAND ACQUISITION ANALYST procedure are in the results section. TSH/FREE T4 IF Routine 08/18/2018 3:44 Results for this INDICATED AM LAND ACQUISITION ANALYST procedure are in the results section. CBC (HEMOGRAM ONLY) Routine 08/18/2018 3:44 Results for this AM LAND ACQUISITION ANALYST procedure are in the results section. LIPID PANEL Routine 08/18/2018 3:44 Results for this AM LAND ACQUISITION ANALYST procedure are in the results section. HEPATIC FUNCTION PANEL Routine 08/18/2018 3:44 Results for this AM LAND ACQUISITION ANALYST procedure are in the results section. HEMOGLOBIN A1C Routine 08/18/2018 3:44 Results for this AM LAND ACQUISITION ANALYST procedure are in the results section. BASIC METABOLIC PANEL Routine 08/18/2018 3:44 Results for this (7) AM LAND ACQUISITION ANALYST procedure are in the results section. after 03/02/2018 Results ARRYTHMIA IMPLANT REPORT - SCAN (11/12/2018 1:43 PM LAND ACQUISITION ANALYST)Only the most recent of3 resultswithin the time period is included. Narrative Performed At RHYTHM STRIP - SCAN (08/22/2018 11:10 AM LAND ACQUISITION ANALYST) Narrative Performed At POC-Glucose meter (08/21/2018 10:17 AM LAND ACQUISITION ANALYST)Only the most recent of7 resultswithin the time period is included. POC-Glucose Meter 102Comment: TESTED AT 70 - 110 mg/dL [facility] [address] [facility] [address] Specimen Blood Performing Organization Address City/State/Zipcode Phone Number [address] [address] [phone] CENTER MR brain without IV contrast (08/21/2018 9:20 AM LAND ACQUISITION ANALYST) Specimen Narrative Performed At FINAL REPORT [facility] MRI Brain without contrast Clinical History: [...] MD Report Verified Date/Time:08/21/2018 09:25:25 Reading Location: [address] Neuro Reading Room Procedure Note Interface, External Ris In - 08/21/2018 9:49 AM LAND ACQUISITION ANALYST FINAL REPORT MRI Brain without contrast Clinical [...] Report Verified Date/Time: 08/21/2018 09:25:25 Reading Location: [address] Neuro Reading Room Performing Organization Address City/State/Zipcode Phone Number [place] MRA neck without IV contrast (08/21/2018 9:20 AM LAND ACQUISITION ANALYST) Specimen Narrative Performed At FINAL REPORT [facility] MRA Head CLINICAL HISTORY: Ischemic Stroke TECHNIQUE: MRA of the head utilizing 3-D bwxv-ng-fekgfm technique, with 3-D reconstructions. COMPARISON: None FINDINGS: There is no evidence of intracranial aneurysm, focal stenosis, or major branch vessel occlusion. IMPRESSION: No evidence for a major [place] proximal branch vessel occlusion. MRA Neck CLINICAL HISTORY: Ischemic Stroke TECHNIQUE: MRA of the neck utilizing 2-D and 3-D onbl-an-imozej technique, with 3-D reconstructions. COMPARISON: None FINDINGS: The carotid arteries in the neck are patent including their bifurcations. There is antegrade flow in the vertebral arteries in the neck. IMPRESSION: No evidence of hemodynamically significant stenosis in the cervical carotid or vertebral arteries by NASCET criteria. Signed: Santos Winn MD Report Verified Date/Time:08/21/2018 09:32:09 Reading Location: [address] Neuro Reading Room Procedure Note Interface, External [facility] In - 08/21/2018 9:48 AM LAND ACQUISITION ANALYST FINAL REPORT MRA Head CLINICAL HISTORY: Ischemic Stroke TECHNIQUE: MRA of the head utilizing 3-D wxch-se-owkvqm technique, with 3-D reconstructions. COMPARISON: None FINDINGS: There is no evidence of intracranial aneurysm, focal stenosis, or major branch vessel occlusion. IMPRESSION: No evidence for a major [place] proximal branch vessel occlusion. MRA Neck CLINICAL HISTORY: Ischemic Stroke TECHNIQUE: MRA of the neck utilizing 2-D and 3-D wzkf-mo-rfjmgt technique, with 3-D reconstructions. COMPARISON: None FINDINGS: The carotid arteries in the neck are patent including their bifurcations. There is antegrade flow in the vertebral arteries in the neck. IMPRESSION: No evidence of hemodynamically significant stenosis in the cervical carotid or vertebral arteries by NASCET criteria. Signed: Santos Winn MD Report Verified Date/Time: 08/21/2018 09:32:09 Reading Location: [address] Neuro Reading Room Performing Organization Address City/State/Zipcode Phone Number [place] MRA head without IV contrast (08/21/2018 9:20 AM LAND ACQUISITION ANALYST) Specimen Narrative Performed At FINAL REPORT [facility] MRA Head CLINICAL HISTORY: Ischemic Stroke TECHNIQUE: MRA of the head utilizing 3-D nelb-im-vyauxl technique, with 3-D reconstructions. COMPARISON: None FINDINGS: There is no evidence of intracranial aneurysm, focal stenosis, or major branch vessel occlusion. IMPRESSION: No evidence for a major [place] proximal branch vessel occlusion. MRA Neck CLINICAL HISTORY: Ischemic Stroke TECHNIQUE: MRA of the neck utilizing 2-D and 3-D sddq-kn-jrdmnm technique, with 3-D reconstructions. COMPARISON: None FINDINGS: The carotid arteries in the neck are patent including their bifurcations. There is antegrade flow in the vertebral arteries in the neck. IMPRESSION: No evidence of hemodynamically significant stenosis in the cervical carotid or vertebral arteries by NASCET criteria. Signed: Santos Winn MD Report Verified Date/Time:08/21/2018 09:32:09 Reading Location: [facility] [id number] Neuro Reading Room Procedure Note Interface, External [facility] In - 08/21/2018 9:48 AM LAND ACQUISITION ANALYST FINAL REPORT MRA Head CLINICAL HISTORY: Ischemic Stroke TECHNIQUE: MRA of the head utilizing 3-D cdrs-oo-bacfnx technique, with 3-D reconstructions. COMPARISON: None FINDINGS: There is no evidence of intracranial aneurysm, focal stenosis, or major branch vessel occlusion. IMPRESSION: No evidence for a major [place] proximal branch vessel occlusion. MRA Neck CLINICAL HISTORY: Ischemic Stroke TECHNIQUE: MRA of the neck utilizing 2-D and 3-D sdgs-yu-zifjaq technique, with 3-D reconstructions. COMPARISON: None FINDINGS: The carotid arteries in the neck are patent including their bifurcations. There is antegrade flow in the vertebral arteries in the neck. IMPRESSION: No evidence of hemodynamically significant stenosis in the cervical carotid or vertebral arteries by NASCET criteria. Signed: Santos Winn MD Report Verified Date/Time: 08/21/2018 09:32:09 Reading Location: [facility] [id number] Neuro Reading Room Performing Organization Address City/State/Zipcode Phone Number [place] XR chest 1 view portable / bedside (08/20/2018 11:52 AM LAND ACQUISITION ANALYST) Specimen Narrative Performed At FINAL REPORT [place] RAD, CHEST, 1 VIEW, NON DEPT INDICATION: [...] MD Report Verified Date/Time:08/20/2018 12:04:06 Reading Location: [facility] Radiology Reading Room Procedure Note Interface, External [facility] In - 08/20/2018 12:53 PM LAND ACQUISITION ANALYST FINAL REPORT RAD, CHEST, 1 VIEW, NON [...] Report Verified Date/Time: 08/20/2018 12:04:06 Reading Location: [facility] Radiology Reading Room Performing Organization Address City/[facility]/Zipcode Phone Number RIS Basic metabolic panel (08/20/2018 6:03 AM LAND ACQUISITION ANALYST)Only the most recent of3 resultswithin the time period is included. Sodium 140 136 - 145 meq/L [facility] Potassium 4.0 3.5 - 5.1 meq/L [facility] Chloride 108 (H) 98 - 107 meq/L [facility] CO2 25 22 - 29 meq/L [facility] BUN 11 7 - 21 mg/dL [facility] Creatinine 0.69 0.57 - 1.25 mg/dL [facility] Glucose 94 70 - 105 mg/dL [facility] Calcium 9.5 8.4 - 10.2 mg/dL [facility] EGFR 96Comment: ESTIMATED GFR IS mL/min/1.73 sq m [facility] NOT ACCURATE CREATININE [facility] CLEARANCE IN PREDICTING GLOMERULAR FILTRATION RATE. ESTIMATED GFR IS NOT APPLICABLE FOR DIALYSIS PATIENTS. Specimen Blood Performing Organization Address [facility] Phone Number [address] [address] [phone] CENTER ECHOCARDIOGRAM REPORT - SCAN (08/19/2018 4:20 PM LAND ACQUISITION ANALYST) Narrative Performed At Vitamin B12 and Folate (08/19/2018 4:44 AM LAND ACQUISITION ANALYST) Vitamin B12 524 213 - 816 pg/mL [facility] Folate 13.5 >=7.0 ng/mL [facility] Specimen Blood Performing Organization Address City/[facility]/Zipcode Phone Number [place] [id number] [place] [address] [phone] CENTER 2D Echo W/Doppler(CW/PW/Color) (08/18/2018 5:34 PM LAND ACQUISITION ANALYST) Ejection [facility] Specimen Narrative Performed At Transthoracic Echocardiography Report (TTE) [facility] ECHO HEARTLAB [facility] Demographics Patient Name JNENI DRAPER Date of Study 08/18/2018 SALMA [id number] GenderFemale Visit Number [id number] Unknown [id number] Room Number 2443 Number Date of Birth1980Referring Physician Antonio CHAUDHARI 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38 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 [facility] JametIPhysician CHAVA Lopez Procedure Type of [...] External Ris In - 08/19/2018 3:36 PM LAND ACQUISITION ANALYST Transthoracic Echocardiography Report (TTE) Demographics Patient Name HARSH JENNI Date of Study 08/18/2018 SALMA Gender Female Visit Number [id number] Race Unknown Room Number 2443 Number Date of 1980 Referring Physician Antonio CHAUDHARI Age 38 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(s) 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 Prakash Jo Interpreting Gerhard Brennan Physician Procedure [...] TR Gradient: 16.82 mmHg Performing Organization Address City/[facility] Phone Number [facility] ECHO HEARTLAB [facility] TSH/Free T4 If Indicated (08/18/2018 3:44 AM LAND ACQUISITION ANALYST) TSH 3.18 0.35 - 4.94 uIU/mL [facility] Specimen Blood Performing Organization Address City/[facility] Phone Number [address] [address] [place] RPR (08/18/2018 3:44 AM LAND ACQUISITION ANALYST) RPR Nonreactive Nonreactive [facility] Specimen Blood Performing Organization Address [facility] Phone Number [address] [address] [phone] [place] CBC (Hemogram only) (08/18/2018 3:44 AM LAND ACQUISITION ANALYST) WBC 5.7 3.5 - 10.5 K/L [facility] RBC 4.44 3.93 - 5.22 M/L [facility] Hemoglobin 12.9 11.2 - 15.7 GM/DL [facility] Hematocrit 39.8 34.1 - 44.9 % [facility] MCV 89.6 79.4 - 94.8 fL [facility] MCH 29.1 25.6 - 32.2 pg [facility] MCHC 32.4 32.2 - 35.5 GM/DL [facility] RDW 12.6 11.7 - 14.4 % [facility] Platelets 210 150 - 450 K/CU MM [facility] MPV 10.3 9.4 - 12.3 fL [facility] nRBC 0 0 - 0 /100 WBC [facility] Specimen Blood Performing Organization Address City/State/Zipcode Phone Number [address] [address] CENTER Hemoglobin A1c (08/18/2018 3:44 AM LAND ACQUISITION ANALYST) Hemoglobin A1C 5.3 4.3 - 6.1 % [facility] Specimen Blood Performing Organization Address City/[facility]/Zipcode Phone Number [address] [address] CENTER Hepatic function panel (08/18/2018 3:44 AM LAND ACQUISITION ANALYST) Protein, Total 6.9Comment: Specimen 6.0 - 8.3 gm/dL [facility] slightly hemolyzed [facility] Albumin 3.8Comment: Specimen 3.5 - 5.0 g/dL [facility] slightly hemolyzed [facility] Total Bilirubin 0.3Comment: Specimen 0.2 - 1.2 mg/dL [facility] hemolyzed [facility] Bilirubin, Direct 0.1Comment: Specimen 0.1 - 0.5 mg/dL [facility] hemolyzed [facility] Alkaline Phosphatase 95 40 - 150 U/L [facility] AST 20Comment: Specimen 5 - 34 U/L [facility] hemolyzed [facility] ALT 13Comment: Specimen 6 - 55 U/L [facility] hemolyzed [facility] Specimen Blood Performing Organization Address [facility] Hospitalcone Phone Number [facility] [address] [place] [address] [place] Lipid panel (08/18/2018 3:44 AM LAND ACQUISITION ANALYST) Triglycerides 121Comment: Specimen slightly mg/dL [facility] Cholesterol 172Comment: Specimen slightly mg/dL [facility] HDL 36 mg/dL [facility] LDL Calculated 112 mg/dL [facility] Specimen Blood Narrative Performed At Triglyceride Reference Range: [facility] Low Risk <150 [id number] High Risk 200-499 Very High Risk>=500 Cholesterol Reference Range: Low Risk <200 [id number] High Risk>240 HDL Cholesterol Reference Range: Low Risk >=60 High Risk <40 LDL Cholesterol Reference Range: Optimal<100 Near [id number] [id number] Tiwq360-886 Very High >=190 Performing Organization Address City/State/Zipcode Phone Number [facility] [address] [place] [address] [phone] [place] after 03/02/2018 Insurance Payer Benefit Plan / Group Subscriber ID Type Phone Address [employer] MED[place]ID [place] xxxxxxxxx Advance Directives For more information, please contact:[place] [address] [address] [place], [place] [phone] Code Status Date Activated Date Inactivated Comments Full Code 08/17/2018 7:42 PM This code status was determined by: Patient
--- OUTSIDE RECORDS SUMMARY | 2019-03-03 13:24 | XMS REPORT | Clinical Summary ---
:1980 Author Organization [facility] Address [address] [place] [address] Care Team Providers Name Role Phone Unavailable [...] unspecified MD Fritz type (Primary Dx) after 03/02/2018 Social History Tobacco Use Types [...] Taken Blood Pressure 113/74 09/04/2018 5:48 PM LIGHT TRUCK DRIVER Pulse 135 09/04/2018 5:48 PM LIGHT TRUCK DRIVER Temperature 36.7 C (98 F) 09/04/2018 5:48 PM LIGHT TRUCK DRIVER Respiratory Rate 18 09/04/2018 5:48 PM LIGHT TRUCK DRIVER Oxygen Saturation 96% 09/04/2018 5:48 PM LIGHT TRUCK DRIVER Inhaled Oxygen Concentration - - Weight - - Height 149.9 cm (4' 11") 09/04/2018 6:00 PM LIGHT TRUCK DRIVER Body Mass Index - - Plan of Treatment Health Maintenance Due Date Last Done Comments INFLUENZA VACCINE 04/25/2019 Procedures Procedure Name Priority Date/Time Associated Diagnosis Comments ECG 12-LEAD STAT 09/04/2018 6:02 PM Results for this LIGHT TRUCK DRIVER procedure are in the results section. after 03/02/2018 Results ECG 12 lead (09/04/2018 6:02 PM LIGHT TRUCK DRIVER) Ventricular rate 106 [facility] Atrial rate 106 [facility] UT interval 120 [facility] QRSD interval 86 [facility] QT interval 326 [facility] QTC interval 433 [facility] P axis 1 55 [facility] QRS axis 1 55 [facility] T wave axis 50 [facility] EKG impression Sinus [facility] tachycardia-Otherwise normal ECG-- Specimen Narrative Performed At Performing Organization Address City/State/Zipcode Phone Number [facility] [address] [place] [address] after 03/02/2018 Advance Directives Patient has advance care planning documents on file. For more information, please contact:Beny Ortiz[address] [place] [address]
--- OUTSIDE RECORDS SUMMARY | 2019-03-03 13:26 | XMS REPORT ---
:1980 Author Organization [facility] Address [address] [place] [address] Care Team Providers Name Role Phone MILTONTAMARA [...] Facility Department ID 2017-09-06 2017-09-08 [id number] 10:12:00 02:32:00 LYLY Results Test Description Test Time Test Comments Text Results Atomic Results Result Comments POCT-GLUCOSE METER 2018-08-21 10:22:00 Test Item Value Reference Range Comments POC-GLUCOSE METER (BEAKER) (test 102 mg/dL 70-110 TESTED AT [facility] [address] [facility] esxo=[id number]) [facility] [address] MR, MRA, BRAIN, WITHOUT [id number] 09:32:00Reason for exam:-> Ischemic Stroke EvaluationFINAL REPORT MRA Head CLINICAL HISTORY: Ischemic Stroke TECHNIQUE: MRA of the head utilizing 3-D time-of- flight technique, with 3-D reconstructions. COMPARISON: None FINDINGS: There is no evidence of intracranial aneurysm, focal stenosis, or major branch vessel occlusion. IMPRESSION: No evidence for a major [place] proximal branch vessel occlusion. MRA Neck CLINICAL HISTORY: Ischemic Stroke TECHNIQUE : MRA of the neck utilizing 2-D and 3-D fkva-qb-dcqote technique, with 3-D reconstructions. COMPARISON: None FINDINGS: The carotid arteries in the neck are patent including their bifurcations. There is antegrade flow in the vertebral arteries in the neck. IMPRESSION: No evidence of hemodynamically significant stenosis in the cervical carotid or vertebral arteries by NASCET criteria. Signed: Santos Neff MDReport Verified Date/Time: 08/21/2018 09:32: 09 Reading Location: [address] Neuro Reading Room MR, MRA, NECK, WITHOUT IV [id number] 09:32:00Reason for exam:->Ischemic Stroke EvaluationFINAL REPORT MRA Head CLINICAL HISTORY: Ischemic Stroke TECHNIQUE: MRA of the head utilizing 3-D xxks-wh-gnyevr technique, with 3-D reconstructions. COMPARISON: None FINDINGS: There is no evidence of intracranial aneurysm, focal stenosis, or major branch vessel occlusion. IMPRESSION: No evidence for a major [place] proximal branch vessel occlusion. MRA Neck CLINICAL HISTORY: Ischemic Stroke TECHNIQUE: MRA of the neck utilizing 2-D and 3-D wwft-ng-yaoajh technique, with 3-D reconstructions. COMPARISON: None FINDINGS: The carotid arteries in the neck are patent including their bifurcations. There is antegrade flow in the vertebral arteries in the neck. IMPRESSION: No evidence of hemodynamically significant stenosis in the cervical carotid or vertebral arteries by NASCET criteria. Signed: Santos Neff MDRiman Verified Date/Time: 08/21/2018 09:32:09 Reading Location: [address] Neuro Reading Room MR, BRAIN, WITHOUT [id number] 09:25: 00Reason for exam:->Ischemic Stroke EvaluationFINAL REPORT [...] Verified Date/Time: 08/21/2018 09:25:25 Reading Location : [facility] C013V Neuro Reading Room POCT-GLUCOSE [id number] 21:26:00 Test Item Value Reference Range Comments POC-GLUCOSE METER (BEAKER) 119 mg/dL 70-110 TESTED AT [address] (test rkbg=8031) [facility] [address] POCT-GLUCOSE [id number] 18:03:00 Test Item Value Reference Range Comments POC-GLUCOSE METER (BEAKER) 119 mg/dL 70-110 TESTED AT [address] (test ijqq=5523) [place] [id number] POCT-GLUCOSE [id number] 12:39:00 Test Item Value Reference Range Comments POC-GLUCOSE METER (BEAKER) 120 mg/dL 70-110 TESTED AT [address] (test wxjq=7350) [facility] [address] RAD, CHEST, 1 VIEW, NON [id number] 12:04:00Reason for exam:->To Locate Heart Device (Pacemaker)Should [...] MDReport Verified Date/Time: 08/20/2018 12:04:06 [facility] POCT-GLUCOSE [id number] 09:17:00 Test Item Value Reference Range Comments POC-GLUCOSE METER (BEAKER) 121 mg/dL 70-110 TESTED AT [address] (test ifzt=6667) [facility] [address] BASIC METABOLIC [id number] 06:56:00 Test Item Value Reference Range Comments SODIUM (BEAKER) (test 140 meq/L 136-145 zrvj=613) POTASSIUM (BEAKER) (test 4.0 meq/L 3.5-5.1 djop=101) CHLORIDE (BEAKER) (test 108 meq/L 98-107 xidf=363) CO2 (BEAKER) (test 25 meq/L 22-29 umzw=912) BLOOD UREA NITROGEN 11 mg/dL 7-21 (BEAKER) (test btnd=295) CREATININE (BEAKER) (test 0.69 mg/dL 0.57-1.25 vvhz=350) GLUCOSE RANDOM (BEAKER) 94 mg/dL 70-105 (test ctrz=378) CALCIUM (BEAKER) (test 9.5 mg/dL 8.4-10.2 xhwk=820) EGFR (BEAKER) (test 96 mL/min/1.73 sq m ESTIMATED GFR IS NOT ozhs=1780) ACCURATE CREATININE CLEARANCE IN PREDICTING GLOMERULAR FILTRATION RATE. ESTIMATED GFR IS NOT APPLICABLE FOR DIALYSIS PATIENTS. POCT-GLUCOSE [id number] 21:09:00 Test Item Value Reference Range Comments POC-GLUCOSE METER (BEAKER) 109 mg/dL 70-110 TESTED AT [address] (test xuwc=8429) [place] [id number] POCT-GLUCOSE [id number] 17:15:00 Test Item Value Reference Range Comments POC-GLUCOSE METER (BEAKER) 117 mg/dL 70-110 TESTED AT [address] (test vzpf=1371) [place] [address] VITAMIN B12 AND [id number] 06:39:00 Test Item Value Reference Range Comments VITAMIN B12 (BEAKER) (test wyxu=528) 524 pg/mL 213-816 FOLATE (BEAKER) (test mouq=965) 13.5 ng/mL >=7.0 BASIC METABOLIC [id number] 05:48:00 Test Item Value Reference Range Comments SODIUM (BEAKER) (test 139 meq/L 136-145 ojyo=539) POTASSIUM (BEAKER) (test 4.0 meq/L 3.5-5.1 dakf=308) CHLORIDE (BEAKER) (test 107 meq/L 98-107 btbl=723) CO2 (BEAKER) (test 24 meq/L 22-29 kjbl=017) BLOOD UREA NITROGEN 11 mg/dL 7-21 (BEAKER) (test jhzj=311) CREATININE (BEAKER) (test 0.72 mg/dL 0.57-1.25 alug=644) GLUCOSE RANDOM (BEAKER) 107 mg/dL 70-105 (test wbos=759) CALCIUM (BEAKER) (test 9.5 mg/dL 8.4-10.2 cfym=824) EGFR (BEAKER) (test 91 mL/min/1.73 sq m ESTIMATED GFR IS NOT afun=0487) ACCURATE CREATININE CLEARANCE IN PREDICTING GLOMERULAR FILTRATION RATE. ESTIMATED GFR IS NOT APPLICABLE FOR DIALYSIS PATIENTS. [id number] 15:42:00 Test Item Value Reference Range Comments RPR SCREEN (BEAKER) (test bmpw=693) Nonreactive Nonreactive HEMOGLOBIN [id number] 09:14:00 Test Item Value Reference Range Comments HEMOGLOBIN A1C (BEAKER) (test zvwq=167) 5.3 % 4.3-6.1 TSH/FREE T4 IF [id number] 04:49:00 Test Item Value Reference Range Comments THYROID STIMULATING HORMONE (BEAKER) (test 3.18 uIU/mL 0.35-4.94 tnqn=583) BASIC METABOLIC [id number] 04:38:00 Test Item Value Reference Range Comments SODIUM (BEAKER) (test 139 meq/L 136-145 oynl=414) POTASSIUM (BEAKER) (test 4.2 meq/L 3.5-5.1 Specimen slightly kxpz=674) hemolyzed CHLORIDE (BEAKER) (test 107 meq/L 98-107 dcok=023) CO2 (BEAKER) (test 26 meq/L 22-29 sccl=934) BLOOD UREA NITROGEN 10 mg/dL 7-21 (BEAKER) (test gxlk=149) CREATININE (BEAKER) (test 0.73 mg/dL 0.57-1.25 Specimen slightly fbam=336) hemolyzed GLUCOSE RANDOM (BEAKER) 104 mg/dL 70-105 (test tegn=709) CALCIUM (BEAKER) (test 9.7 mg/dL 8.4-10.2 pgxh=916) EGFR (BEAKER) (test 90 mL/min/1.73 sq m ESTIMATED GFR IS NOT enyu=9718) ACCURATE CREATININE CLEARANCE IN PREDICTING GLOMERULAR FILTRATION RATE. ESTIMATED GFR IS NOT APPLICABLE FOR DIALYSIS PATIENTS. LIPID [id number] 04:38:00 Test Item Value Reference Range Comments TRIGLYCERIDES (BEAKER) (test 121 mg/dL Specimen slightly hemolyzed soxc=383) CHOLESTEROL (BEAKER) (test 172 mg/dL Specimen slightly hemolyzed wrxg=718) HDL CHOLESTEROL (BEAKER) (test 36 mg/dL qtsk=940) LDL CHOLESTEROL CALCULATED 112 mg/dL (BEAKER) (test rimw=589) Triglyceride Reference Range: Low Risk <150 Borderline 150- 199 High Risk 200-499 Very High Risk >=500Cholesterol Reference Range: Low Risk <200 Borderline 200-239 High Risk > 240HDL Cholesterol Reference Range: Low Risk >=60 High Risk <40LDL Cholesterol Reference Range: Optimal <100 Near Optimal 100-129 Borderline 130-159 High 160-189 Very High >=190HEPATIC FUNCTION [id number] 04:38:00 Test Item Value Reference Range Comments TOTAL PROTEIN (BEAKER) (test 6.9 gm/dL 6.0-8.3 Specimen slightly hemolyzed pfpn=219) ALBUMIN (BEAKER) (test 3.8 g/dL 3.5-5.0 Specimen slightly hemolyzed rplh=5669) BILIRUBIN TOTAL (BEAKER) (test 0.3 mg/dL 0.2-1.2 Specimen slightly hemolyzed dyjl=789) BILIRUBIN DIRECT (BEAKER) (test 0.1 mg/dL 0.1-0.5 Specimen slightly hemolyzed sjtk=135) ALKALINE PHOSPHATASE (BEAKER) 95 U/L 40-150 (test udwj=092) AST (SGOT) (BEAKER) (test 20 U/L 5-34 Specimen slightly hemolyzed ocmf=325) ALT (SGPT) (BEAKER) (test 13 U/L 6-55 Specimen slightly hemolyzed molk=520) CBC (HEMOGRAM ONLY)2018-08-18 03:55:00 Test Item Value Reference Range Comments WHITE BLOOD CELL COUNT (BEAKER) (test quil=147) 5.7 K/ L 3.5-10.5 RED BLOOD CELL COUNT (BEAKER) (test xwyf=051) 4.44 M/ L 3.93-5.22 HEMOGLOBIN (BEAKER) (test hqcp=480) 12.9 GM/DL 11.2-15.7 HEMATOCRIT (BEAKER) (test ejav=784) 39.8 % 34.1-44.9 MEAN CORPUSCULAR VOLUME (BEAKER) (test zmym=771) 89.6 fL 79.4-94.8 MEAN CORPUSCULAR HEMOGLOBIN (BEAKER) (test 29.1 pg 25.6-32.2 ieln=456) MEAN CORPUSCULAR HEMOGLOBIN CONC (BEAKER) (test 32.4 GM/DL 32.2-35.5 ocji=214) RED CELL DISTRIBUTION WIDTH (BEAKER) (test 12.6 % 11.7-14.4 xjbu=805) PLATELET COUNT (BEAKER) (test vohi=423) 210 K/CU MM 150-450 MEAN PLATELET VOLUME (BEAKER) (test dylv=301) 10.3 fL 9.4-12.3 NUCLEATED RED BLOOD CELLS (BEAKER) (test 0 /100 WBC 0-0 colk=430) AFB Culture and [id number] 13:24:00Specimen/Source: Wound/ PACEMAKERCollected: 09/05/2017 19:45 Status: Final Last Updated: 2017 13:24 ORE-Iunsp-Ywfxqwliyrli (Final) (Final) 09/07/17 No acid fast bacill seen on direct smear Culture Result (Final) (Final) 11/01/17 No growth of AFB at six (6) weeksFungus Culture with [id number] 12:12: 00Specimen/Source: Wound/PACEMAKERCollected: 09/05/2017 19:45 Status: Final Last Updated: 10/22/2017 12:12 Fungal Smear Result (Final) (Final) 09/06/17 No yeast or hyphae seen Culture Result (Final) (Final) 10/22/17 No fungus isolated at 6 weeksCulture, Blood [id number] 08:23:00Specimen: BloodCollected: 09/04/2017 20:30 Status: Final Last Updated: 09/10/2017 08: 23 Culture Result (Final) (Final) No Growth After 5 DaysCulture, Blood [id number] 08:23:00Specimen: BloodCollected: 09/04/2017 20:15 Status: Final Last Updated: 09/10/2017 08:23 Culture Result (Final) (Final) No Growth After 5 DaysCulture, Wound [id number] 08:52:00Specimen: WoundCollected: 09/05/2017 19:45 Status: Final Last Updated: 09/08/2017 08: 52 Gram Stain (Final) (Final) 09/06/17 No organisms seen, Few WBC's Culture Result (Final) (Final) 09/08/17 Anaerobic culture:No anaerobes isolated at 3 days Isolate (Final) (Final) 09/07/17Few Staph-coag positive Isolate Staph-coag positive JERMAINE (mcg/ml) Amoxicillin/Clav (AUG)<=4/2 Susceptible Ampicillin (AM) >8 Resistant Ampicillin/Sulb (A/S) <=8/4 Susceptible Cefazolin (CFZ) <=4 Susceptible Ceftriaxone (MIXING TANK OPERATOR) <=4 Susceptible Chloramphenicol (C) <=8 Susceptible Ciprofloxacin (CP) <=1 Susceptible Clindamycin (CM) 0.5 Susceptible Erythromycin (E) <=0.25 Susceptible Gentamicin (GM) <=1 Susceptible Imipenem (IMP) <=4 Susceptible Levofloxacin (LEV) <=0.5 Susceptible Linezolid (LNZ) 4 Susceptible Oxacillin (OX1) 0.5 Susceptible Penicillin (P) >8 Resistant Rifampin ( RA) <=1 Susceptible Tetracycline (TE) <=1 Susceptible Trimethoprim/Sulfa <=0.5/9.Susceptible (SXT) 5 Vancomycin (VA) 2 SusceptibleRenal [id number] 08:51: 00 Test Item Value Reference Range [...] race is not provided, and the patient isAfrican-B[place]am[place], multiply by 1.212. If sex is not [...] the National Kidney Foundation,http://nkdep.nih .gov CBC with [id number] 07:39:00 Test Item Value Reference Range Comments [...] Lymph Abs (test code=ALYMPH) 1.7 K/cumm 0.5-4.6 [place] Abs (test code=AMONO) 0.3 K/cumm 0.0-1.2 Eos Abs (test code=AEOS) 0.29 K/cumm 0.00-0.74 Baso Abs (test code=ABASO) 0.0 K/cumm 0.00-0.21 Vancomycin, [id number] 12:33:00 Test Item Value Reference Range Comments Vanco, Trou (test code=VANTR) 7.9 ug/mL 10.0-20.0 Magnesium, [id number] 06:37:00 Test Item Value Reference Range Comments Magnesium (test code=MG) 2.4 mg/dL 1.7-2.5 Renal [id number] 06:29:00 Test Item Value Reference Range Comments [...] race is not provided, and the patient isAfrican-[place], multiply by 1.212. If sex is not [...] the National Kidney Foundation,http://nkdep.nih .gov BHCG, Serum, [id number] 06:26:00 Test Item Value Reference Range Comments Preg Qual [Se] (test code=BSHCG) Negative Negative CBC with [id number] 06:24:00 Test Item Value Reference Range Comments [...] Lymph Abs (test code=ALYMPH) 1.6 K/cumm 0.5-4.6 [place] Abs (test code=AMONO) 0.4 K/cumm 0.0-1.2 Eos Abs (test code=AEOS) 0.18 K/cumm 0.00-0.74 Baso Abs (test code=ABASO) 0.0 K/cumm 0.00-0.21 XR CHEST 1 [id number] 16:29:55XR CHEST 1 VIEWLOCATION: [id number]: None.INDICATION: REVIEW PICC LINE PLACEMENTDISCUSSION:AP chest and [...] TSH (test code=TSH) 3.44 mIU/mL 0.270-4.200 Lipid [id number] 05:47:00 Test Item Value Reference Range Comments Cholesterol (test 160 mg/dL 0-200 code=CHOL) Triglycerides (test 126 mg/dL 9-200 code=TRIG) HDL (test code=HDL) 35 mg/dL 50-60 Chol/HDL (test 4.6 Ratio 0.0-4.4 code=CHOLPHDL) LDL, Calculated (test 100 0-130 (NOTE)RISK OF HEART code=LDLC) DISEASEPublished by [place] Heart AssociationAnalyte Optimal Boderline Increased RiskCHOL <200 200-239 >240TRIG <150 150-199 >200HDL Male: >60 <40HDL Female: >60 <50LDL <100 130-159 >160LDL NEAR OPTIMAL IS 100-129 VLDL (test code=VLDL) 25 mg/dL 5-40 LDL/HDL (test code=LDLPHDL) 3 Basic Metabolic [id number] 05:47:00 Test Item Value Reference Range Comments [...] race is not provided, and the patient isAfrican-[place], multiply by 1.212. If sex is not provided, and thepatient is female, multiply by 0.742. Results for patients <18 years ofage have not been validated by the MDRD study and should be interpretedwith caution.eGFR Result Interpretation:eGFR > or=60 is in the Normal RangeeGFR < 60 may mean kidney diseaseeGFR < 15 may mean kidney failureRanges recommended by the National Kidney Foundation,http://nkdep.nih .gov Magnesium, [id number] 05:47:00 Test Item Value Reference Range Comments Magnesium (test code=MG) 2.3 mg/dL 1.7-2.5 CBC with [id number] 05:36:00 Test Item Value Reference Range Comments [...] Lymph Abs (test code=ALYMPH) 2.2 K/cumm 0.5-4.6 [place] Abs (test code=AMONO) 0.3 K/cumm 0.0-1.2 Eos Abs (test code=AEOS) 0.24 K/cumm 0.00-0.74 Baso Abs (test code=ABASO) 0.0 K/cumm 0.00-0.21 Partial Thromboplastin [id number] 21:26:00 Test Item Value Reference Range Comments aPTT (test code=PTT) 29.00 seconds 24.39-37.25 Prothrombin [id number] 21:26:00 Test Item Value Reference Range Comments PT (test code=PT) 10.70 seconds 9.78-13.35 INR (test code=INR) 0.95 Ratio 0.6-1.2 Comprehensive Metabolic [id number] 21:23:00 Test Item Value Reference Range Comments [...] race is not provided, and the patient is[place], multiply by 1.212. If sex is not [...] the National Kidney Foundation,http://nkdep.nih .gov CBC with [id number] 21:16:00 Test Item Value Reference Range Comments [...] Lymph Abs (test code=ALYMPH) 2.2 K/cumm 0.5-4.6 [place] Abs (test code=AMONO) 0.4 K/cumm 0.0-1.2 Eos Abs (test code=AEOS) 0.17 K/cumm 0.00-0.74 Baso Abs (test code=ABASO) 0.1 K/cumm 0.00-0.21
[2019-03-03 14:45] LABS: Absolute Lymphocytes (CBC) 1.5 K/uL (0.7-4.9); Absolute Monocytes 0.4 K/uL (0.1-1.3); Absolute Neutrophil 5.1 K/uL (1.8-8.0); Basophils % 0.6 % (0-1.3); Eosinophils % 0.9 % (0-4.4); Hematocrit 42.4 % (36.0-45.0); Lymphocytes % 21.1 % (15.3-44.8); MPV 9.3 fL (7.6-11.3); RBC Red Blood Cell Count 4.87 M/uL (3.86-4.86)
[2019-03-03] MEDS ORDERED: KETOROLAC 30 MG/ML INJ ONE (14:49)
[2019-03-03] MEDS ORDERED: NA CHLORIDE 0.9% 500 ML ONE (14:49)
[2019-03-03] MEDS ORDERED: MECLIZINE HCL 12.5 MG TAB ONE (14:49)
[2019-03-03 15:04] LABS: Albumin 4.2 g/dL (3.4-5.0); Bilirubin Direct 0.1 mg/dL (0-0.2); Bilirubin Total 0.3 mg/dL (0.2-1.0); Magnesium 2.6 mg/dL (1.8-2.4); Potassium 3.3 mmol/L (3.5-5.1); Protein, Total 8.3 g/dL (6.4-8.2)
[2019-03-03 15:09] LABS: Protime INR 0.93
[2019-03-03 15:16] LABS: Troponin (Emerg Dept Use Only) < 0.02 ng/mL (0.0-0.045)
[2019-03-03 15:18] LABS: Urine Blood NEGATIVE (NEG); Urine Glucose NEGATIVE (NEG); Urine Protein NEGATIVE (NEG); Urine Specific Gravity 1.015 (1.005-1.030)
--- NOTE | 2019-03-03 15:33 | RAD REPORT ---
EXAM DESCRIPTION: RAD - Tib Fib Left - 03/03/2019 2:52 pm CLINICAL HISTORY: Fall, leg pain COMPARISON: February 22, 2019 FINDINGS: No fracture is identified. There is no dislocation or periosteal reaction noted. No acute or suspicious bony finding. No foreign body or other soft tissue abnormality. IMPRESSION: Negative left tibia & fibula examination.
--- NOTE | 2019-03-03 15:33 | RAD REPORT ---
EXAM DESCRIPTION: RAD - Femur Left - 03/03/2019 2:52 pm CLINICAL HISTORY: Fall, leg pain COMPARISON: None. FINDINGS: No fracture is identified. There is no dislocation or periosteal reaction noted. No acute or suspicious bony finding. No air or foreign body in the soft tissues. IMPRESSION: Negative left femur examination.
--- NOTE | 2019-03-03 15:34 | RAD REPORT ---
EXAM DESCRIPTION: RAD - Chest Single View - 03/03/2019 2:55 pm CLINICAL HISTORY: Syncope, chest pain COMPARISON: January 24, 2019 TECHNIQUE: AP portable chest image was obtained 1453 hours . FINDINGS: No markers are incorrect. Lung perdomo are clear. Right-sided pacemaker is in place. Heart and vasculature are normal. No measurable pleural effusion and no pneumothorax. No acute bony abnorma lity seen. No acute aortic findings suspected. IMPRESSION: No acute cardiopulmonary process. No significant interval change.
[2019-03-03] MEDS ORDERED: POTASSIUM 25 MEQ EFFERV TAB ONE (16:28)
[2019-03-03] MEDS ORDERED: DIGOXIN 0.25 MG TABLET ONE (16:48)
[2019-03-03] MEDS ORDERED: PROMETHAZINE 25 MG/ML VIAL ONE (16:48)
--- NOTE | 2019-03-03 19:09 | EDPHYS ---
Physician Documentation [facility] Name: Jenni Rivera Age: 38 yrs Sex: Female : 1980 Arrival Date: 03/03/2019 Time: 13:24 Bed 8 Private MD: Diya Mora Atiq ED Physician Tanner Robbins HPI: 03/03 14:05 This 38 yrs old Female presents to ER via Wheelchair with complaints of Chest cp Pain, Dizziness, Leg Pain. 14:05 The patient or guardian reports chest pain that is located primarily in the anterior cp chest wall, left. 14:05 The pain does not radiate. The chest pain is described as sharp. Duration: The patient cp or guardian reports multiple episodes, that are intermittent, with no pattern, since 1000 today. 14:05 Patient reports she feels like pacemaker is "kicking". C/o left leg pain after falling cp from episode of dizziness and near-syncope. Patient reports symptoms after standing up off toilet after using restroom. Denies hitting head or LOC. Historical: - Allergies: 13:34 Adhesives; hb 13:34 Aspirin; hb 13:34 Bactrim; hb 13:34 Benadryl; hb 13:34 Ciprofloxacin; hb 13:34 Clindamycin; hb 13:34 Codeine; hb 13:34 Detrol; hb 13:34 GABAPENTIN; hb 13:34 Iodine; hb 13:34 Latex, Natural Rubber; hb 13:34 Morphine; hb 13:34 PENICILLINS; hb 13:34 Seroquel; hb 13:34 Sulfa (Sulfonamide Antibiotics); hb 13:34 tramadol; hb - Home Meds: 14:14 Abilify 10 mg Oral tab 1 tab once daily [Active]; Abilify 5 mg Oral tab 1 tab nightly aa5 [Active]; albuterol sulfate 1.25 mg/3 mL Inhl nebu 3 mL 3 times per day [Active]; apixaban 5 mg BID Oral [Active]; atorvastatin 10 mg Oral tab 1 tab once daily [Active]; benztropine 1 mg Oral tab 1 tab 2 times per day [Active]; Breo Ellipta 100-25 mcg/dose inhalation dsdv 1 puff once daily [Active]; buspirone 15 mg Oral tab 1 tab 2 times per day [Active]; Coreg 25 mg Oral tab 1 tab 2 times per day [Active]; Daliresp 500 mcg Oral tab 1 tab once daily [Active]; digoxin 125 mcg Oral tab 1 tab once daily [Active]; esomeprazole magnesium 40 mg Oral cpDR 1 cap once daily [Active]; Keppra 1,000 mg Oral tab 1 tab every 12 hours [Active]; ketorolac 10 mg Oral tab 1 tab every 6 hours [Active]; levothyroxine 150 mcg tab 1 tab once daily [Active]; loratadine 10 mg Oral tab 1 tab once daily [Active]; methocarbamol 500 mg Oral tab 1 tabs 4 times per day [Active]; Ranexa 500 mg Oral Tb12 1 tab 2 times per day [Active]; Spiriva with HandiHaler 18 mcg inhalation CpDv 1 cap once daily [Active]; Topamax 100 mg Oral tab 2 tabs 2 times per day [Active]; venlafaxine 150 mg Oral cp24 1 cap once daily [Active]; Xanax 0.25 mg Oral tab 1 tab PRN [Active]; 14:14 Eliquis 5 mg oral tab once a day [Active]; aa5 - PMHx: 13:34 mitral valve prolapse; Myocardial infarction; Hypothyroidism; internal heart monitor; hb Kidney stones; HYPOGLYCEMIA; Hypertension; Bronchitis; Back pain; Asthma; Pacemaker; sick sinus syndrome; Seizures; neuropathy; Anxiety; TIA; Anemia; Upper Resp Infection; 14:00 DVT to left leg; aa5 - PSHx: 13:34 pacemaker; hb - Immunization history:: Adult Immunizations up to date. - Social history:: Smoking status: Patient uses tobacco products, smokes one-half pack cigarettes per day. - Ebola Screening: : No symptoms or risks identified at this time. ROS: 14:10 Constitutional: Negative for body aches, chills, fever, poor PO intake. cp 14:10 Eyes: Negative for injury, pain, redness, and discharge. cp 14:10 ENT: Negative for drainage from ear(s), ear pain, sinus pain, sore throat, difficulty swallowing, difficulty handling secretions. 14:10 Neck: Negative for pain with movement, pain at rest, stiffness. 14:10 Cardiovascular: Positive for chest pain, of the left side, Negative for edema, palpitations. 14:10 Respiratory: Negative for cough, shortness of breath, wheezing. 14:10 Abdomen/GI: Positive for nausea, Negative for abdominal pain, vomiting, diarrhea, constipation, black/tarry stool, rectal bleeding. 14:10 Back: Negative for pain at rest, pain with movement. 14:10 MS/extremity: Positive for pain, of the left leg. 14:10 Skin: Negative for cellulitis, rash. 14:10 Neuro: Positive for dizziness, near syncope, Negative for altered mental status, headache, seizure activity, weakness. 14:10 All other systems are negative. Exam: 14:20 Head/Face: Normocephalic, atraumatic. cp 14:20 Eyes: Pupils equal round and reactive to light, extra-ocular motions intact. Lids and lashes normal. Conjunctiva and sclera are non-icteric and not injected. Cornea within normal limits. Periorbital areas with no swelling, redness, or edema. ENT: Nares patent. No nasal discharge, no septal abnormalities noted. Tympanic membranes are normal and external auditory canals are clear. Oropharynx with no redness, swelling, or masses, exudates, or evidence of obstruction, uvula midline. Mucous membranes moist. Neck: Trachea midline, no thyromegaly or masses palpated, and no cervical lymphadenopathy. Supple, full range of motion without nuchal rigidity, or vertebral point tenderness. No Meningismus. 14:20 Constitutional: The patient appears in no acute distress, alert, awake, non-diaphoretic, non-toxic, well developed, well nourished. 14:20 Chest/axilla: Inspection: normal, Palpation: is normal, no crepitus, no tenderness. 14:20 Cardiovascular: Rate: tachycardic, Rhythm: regular, Pulses: Pulses are 2+ in right radial artery, right dorsalis pedis artery, left radial artery and left dorsalis pedis artery. Edema: is not appreciated, JVD: is not appreciated. 14:20 Respiratory: the patient does not display signs of respiratory distress, Respirations: normal, no use of accessory muscles, no retractions, no splinting, no tachypnea, labored breathing, is not present, Breath sounds: are clear throughout, no decreased breath sounds, no stridor, no wheezing. 14:20 Abdomen/GI: Inspection: abdomen appears normal, Bowel sounds: active, all quadrants, Palpation: abdomen is soft and non-tender, in all quadrants, rebound tenderness, is not appreciated, voluntary guarding, is not appreciated, involuntary guarding, is not appreciated. 14:20 Back: pain, is absent, ROM is normal. 14:20 Musculoskeletal/extremity: Extremities: grossly normal except: noted in the left upper and left lower leg: pain, tenderness, There is no evidence of deformity, ROM: limited passive range of motion due to pain, in the left leg, Sensation intact. Weight bearing: can bear weight with assistance only. 14:20 Skin: cellulitis, is not appreciated, no rash present. 14:20 Neuro: Orientation: to person, place \\T\\ time. Mentation: is normal, Cerebellar function: is grossly normal, Motor: moves all fours, strength is normal, Sensation: is normal. 14:25 ECG was reviewed by the Attending Physician. 18:08 ECG was reviewed by the Attending Physician. Vital Signs: 13:33 BP 105 / 86; Pulse 106; Resp 16; Temp 99.5(TE); Pulse Ox 100% ; Weight 48.08 kg; Height hb 4 ft. 10 in. (147.32 cm); Pain 7/10; 14:00 BP 119 / 96 Supine; Pulse 98; aa5 14:02 BP 101 / 71 Sitting; Pulse 110; aa5 14:30 BP 111 / 80; Pulse 101; Resp 16 S; Pulse Ox 98% on R/A; aa5 15:00 BP 156 / 75; Pulse 104; Resp 16 S; Pulse Ox 100% on R/A; aa5 15:41 BP 132 / 79; Pulse 99; Resp 18 S; Pulse Ox 100% on R/A; aa5 16:00 BP 142 / 93; Pulse 109; Resp 16 S; Pulse Ox 100% on R/A; aa5 16:45 BP 142 / 93; Pulse 109; Resp 16 S; Temp 99.0(O); Pulse Ox 100% on R/A; aa5 17:30 BP 143 / 85; Pulse 88; Resp 16 S; Pulse Ox 98% on R/A; aa5 18:51 BP 143 / 59; Pulse 69; Resp 16; Pulse Ox 98% on R/A; la1 19:30 BP 110 / 77; Pulse 93; Resp 17; Temp 98.5; Pulse Ox 99% ; rr5 13:33 Body Mass Index 22.15 (48.08 kg, 147.32 cm) hb 14:02 Pt states she is unable to stand at this time due to pain to her left leg, PA was aa5 notified of supine and sitting orthostatics. Procedures: 19:25 Splinting: Splint applied to left leg using knee immobilizer, applied by nurse. cp Examined by me, post splint application: neurovascular intact, Patient tolerated well. Crutch training provided to patient and/or family. Return demonstration given. MDM: 13:53 Patient medically screened. cp 19:07 Data reviewed: vital signs, nurses notes, lab test result(s), EKG, radiologic studies, cp plain films. 19:07 Differential diagnosis: abnormal EKG, acute myocardial infarction, chest wall pain, cp costochondritis, pleurisy, pneumothorax, leg fracture. Test interpretation: by ED physician or midlevel provider: ECG, plain radiologic studies. Counseling: I had a detailed discussion with the patient and/or guardian regarding: the historical points, exam findings, and any diagnostic results supporting the discharge/admit diagnosis, lab results, radiology results, the need for outpatient follow up, a family practitioner, to return to the emergency department if symptoms worsen or persist or if there are any questions or concerns that arise at home. Response to treatment: the patient's symptoms have markedly improved after treatment. 19:08 ED course: VSS. Patient reports symptoms are better. EKGs and troponin levels negative. cp Will discharge to home for continued monitoring. 03/03 14:08 Order name: Basic Metabolic Panel cp 03/03 14:08 Order name: CBC with Diff cp 03/03 14:08 Order name: LFT's cp 03/03 14:08 Order name: Magnesium cp 03/03 14:08 Order name: NT PRO-BNP; Complete Time: 15:39 cp 03/03 14:08 Order name: PT-INR; Complete Time: 15:39 cp 03/03 14:08 Order name: Troponin (emerg Dept Use Only); Complete Time: 15:39 cp 03/03 14:08 Order name: Digoxin; Complete Time: 15:39 cp 03/03 14:08 Order name: Ckmb; Complete Time: 15:39 cp 03/03 14:09 Order name: Basic Metabolic Panel; Complete Time: 15:39 EDMS 06/09 15:40 Interpretation: Normal except: K 3.3; CL 110; GFR 88. cp 06/ 14:09 Order name: CBC with Automated Diff; Complete Time: 15:39 EDMS / 14:10 Order name: Liver (Hepatic) Function; Complete Time: 15:39 EDMS / 14:10 Order name: Magnesium; Complete Time: 15:39 EDMS 03/03 15:05 Order name: Urine Dipstick--Ancillary (enter results); Complete Time: 15:39 ag 06/ 13:54 Order name: Orthostatics; Complete Time: 14:08 cp 03/03 14:08 Order name: XRAY Chest (1 view); Complete Time: 15:39 cp 03/03 14:08 Order name: EKG; Complete Time: 14:10 cp 03/03 14:08 Order name: Cardiac monitoring; Complete Time: 14:08 cp 03/03 14:08 Order name: EKG - Nurse/Tech; Complete Time: 14:27 cp 03/03 14:12 Order name: XRAY Femur LEFT; Complete Time: 15:39 cp 03/03 14:12 Order name: XRAY Tib Fib LEFT; Complete Time: 15:39 cp 03/03 15:05 Order name: Urine --Ancillary (enter results); Complete Time: 15:39 ag / 17:26 Order name: Troponin I cp 03/03 17:26 Order name: EKG; Complete Time: 17:28 cp 03/03 14:08 Order name: IV Saline Lock; Complete Time: 14:34 cp 03/03 14:08 Order name: Labs collected and sent; Complete Time: 14:34 cp 03/03 14:08 Order name: O2 Per Protocol; Complete Time: 14:09 cp 03/03 14:08 Order name: O2 Sat Monitoring; Complete Time: 14:09 cp 03/03 14:12 Order name: Urine Dipstick-Ancillary (obtain specimen); Complete Time: 14:34 cp 03/03 14:12 Order name: Urine Test (obtain specimen); Complete Time: 14:34 cp 03/03 17:26 Order name: EKG - Nurse/Tech; Complete Time: 18:34 cp 03/03 19:09 Order name: Crutches; Complete Time: 19:34 cp 03/03 19:15 Order name: Knee Immobilizer; Complete Time: 19:34 la1 EC:25 Rate is 95 beats/min. Rhythm is regular. TN interval is normal. QRS interval is normal. cp QT interval is normal. Interpreted by me. Reviewed by me. 18:08 Rate is 110 beats/min. Rhythm is regular. TN interval is normal. QRS interval is cp normal. QT interval is normal. Interpreted by me. Reviewed by me. Administered Medications: 14:38 Drug: Meclizine 12.5 mg Route: PO; aa5 18:51 Follow up: Response: No adverse reaction; Pain is decreased la1 14:38 Drug: TORadol - Ketorolac 15 mg Route: IVP; Site: right forearm; aa5 18:51 Follow up: Response: No adverse reaction; Pain is decreased la1 15:00 Drug: NS 0.9% 500 ml Route: IV; Rate: bolus; Site: right forearm; aa5 16:35 Drug: Phenergan 12.5 mg Route: IVP; Site: right forearm; aa5 18:52 Follow up: Response: No adverse reaction; Nausea is decreased la1 16:38 Drug: Digoxin Tablet 0.125 mg Route: PO; aa5 18:52 Follow up: Response: No adverse reaction la1 17:00 Drug: Potassium Effervescent Tablet 50 mEq Route: PO; la1 18:52 Follow up: Response: No adverse reaction la1 Disposition: 03/03/19 19:08 Discharged to Home. Impression: Dizziness and giddiness, Chest pain, unspecified, Pain in left leg. - Condition is Stable. - Discharge Instructions: Nonspecific Chest Pain, Dizziness. - Prescriptions for Meclizine 25 mg Oral Tablet - take 1 tablet by ORAL route every 8 hours As needed; 20 tablet. - Medication Reconciliation Form, Thank You Letter, Antibiotic Education, Prescription Opioid Use form. - Follow up: Private Physician; When: 1 - 2 days; Reason: Recheck today's complaints. - Problem is new. - Symptoms have improved. Addendum: 03/05/2019 19:03 Co-signature as Attending Physician, Tanner Robbins MD. r n Signatures: Dispatcher [employer] EDLA Tanner Robbins MD MD rn Calderon, Audri, RN RN aa5 Alexandre Mooney RN RN la1 Caio Briones PA PA cp Adriana Meyers RN RN Jamie Hargrove RN RN rr5 Corrections: (The following items were deleted from the chart) 03/03 19:39 19:08 03/03/2019 19:08 Discharged to Home. Impression: Dizziness and giddiness; Chest rr5 pain, unspecified; Pain in left leg. Condition is Stable. Forms are Medication Reconciliation Form, Thank You Letter, Antibiotic Education, Prescription Opioid Use. Follow up: Private Physician; When: 1 - 2 days; Reason: Recheck today's complaints. Problem is new. Symptoms have improved. cp
--- NOTE | 2019-03-03 19:09 | ER ---
Nurse's Notes [facility] Name: Jenni Rivera Age: 38 yrs Sex: Female : 1980 Arrival Date: 03/03/2019 Time: 13:24 Bed 8 Private MD: Diya Mora Atiq Diagnosis: Dizziness and giddiness;Chest pain, unspecified;Pain in left leg Presentation: 03/03 13:30 Presenting complaint: Near syncopal episode while standing up from toilet this morning. hb Pt reports feeling her pacemaker "kick" and feeling dizzy as she stood up. Also reports left knee pain that radiates to left foot and intermittent sharp left sided chest pain 04/03. Transition of care: patient was not received from another setting of care. Onset of symptoms was March 03, 2019 at 11:15. Risk Assessment: Do you want to hurt yourself or someone else? Patient reports no desire to harm self or others. Care prior to arrival: None. 13:30 Method Of Arrival: Wheelchair hb 13:30 Acuity: LYUBOV 3 hb 14:00 Initial Sepsis Screen: Does the patient meet any 2 criteria? HR > 90 bpm. Does the aa5 patient have a suspected source of infection? No. Patient's initial sepsis screen is negative. Historical: - Allergies: 13:34 Adhesives; hb 13:34 Aspirin; hb 13:34 Bactrim; hb 13:34 Benadryl; hb 13:34 Ciprofloxacin; hb 13:34 Clindamycin; hb 13:34 Codeine; hb 13:34 Detrol; hb 13:34 GABAPENTIN; hb 13:34 Iodine; hb 13:34 Latex, Natural Rubber; hb 13:34 Morphine; hb 13:34 PENICILLINS; hb 13:34 Seroquel; hb 13:34 Sulfa (Sulfonamide Antibiotics); hb 13:34 tramadol; hb - Home Meds: 14:14 Abilify 10 mg Oral tab 1 tab once daily [Active]; Abilify 5 mg Oral tab 1 tab nightly aa5 [Active]; albuterol sulfate 1.25 mg/3 mL Inhl nebu 3 mL 3 times per day [Active]; apixaban 5 mg BID Oral [Active]; atorvastatin 10 mg Oral tab 1 tab once daily [Active]; benztropine 1 mg Oral tab 1 tab 2 times per day [Active]; Breo Ellipta 100-25 mcg/dose inhalation dsdv 1 puff once daily [Active]; buspirone 15 mg Oral tab 1 tab 2 times per day [Active]; Coreg 25 mg Oral tab 1 tab 2 times per day [Active]; Daliresp 500 mcg Oral tab 1 tab once daily [Active]; digoxin 125 mcg Oral tab 1 tab once daily [Active]; esomeprazole magnesium 40 mg Oral cpDR 1 cap once daily [Active]; Keppra 1,000 mg Oral tab 1 tab every 12 hours [Active]; ketorolac 10 mg Oral tab 1 tab every 6 hours [Active]; levothyroxine 150 mcg tab 1 tab once daily [Active]; loratadine 10 mg Oral tab 1 tab once daily [Active]; methocarbamol 500 mg Oral tab 1 tabs 4 times per day [Active]; Ranexa 500 mg Oral Tb12 1 tab 2 times per day [Active]; Spiriva with HandiHaler 18 mcg inhalation CpDv 1 cap once daily [Active]; Topamax 100 mg Oral tab 2 tabs 2 times per day [Active]; venlafaxine 150 mg Oral cp24 1 cap once daily [Active]; Xanax 0.25 mg Oral tab 1 tab PRN [Active]; 14:14 Eliquis 5 mg oral tab once a day [Active]; aa5 - PMHx: 13:34 mitral valve prolapse; Myocardial infarction; Hypothyroidism; internal heart monitor; hb Kidney stones; HYPOGLYCEMIA; Hypertension; Bronchitis; Back pain; Asthma; Pacemaker; sick sinus syndrome; Seizures; neuropathy; Anxiety; TIA; Anemia; Upper Resp Infection; 14:00 DVT to left leg; aa5 - PSHx: 13:34 pacemaker; hb - Immunization history:: Adult Immunizations up to date. - Social history:: Smoking status: Patient uses tobacco products, smokes one-half pack cigarettes per day. - Ebola Screening: : No symptoms or risks identified at this time. Screenin:00 Abuse screen: Denies threats or abuse. Nutritional screening: No deficits noted. aa5 Tuberculosis screening: No symptoms or risk factors identified. Fall Risk None identified. Assessment: 14:00 General: Appears uncomfortable, Behavior is calm, cooperative. Pain: Complains of pain aa5 in anterior aspect of left upper chest, left ankle, and left knee Pain does not radiate. Pain currently is 7 out of 10 on a pain scale. Quality of pain is described as sharp, Pain began at 1100 Is intermittent. Neuro: Level of Consciousness is awake, alert, obeys commands, Oriented to person, place, time, situation, Driller Brake Lining are equal bilaterally Moves all extremities. Speech is normal, Facial symmetry appears normal, Pupils are PERRLA, Reports dizziness. Cardiovascular: Heart tones S1 S2 present Rhythm is regular. Respiratory: Reports cough that is non-productive, since 2 weeks ago Airway is patent Respiratory effort is even, unlabored, Respiratory pattern is regular, symmetrical, Breath sounds are clear bilaterally. GI: Abdomen is non-distended, Bowel sounds present X 4 quads. Abd is soft and non tender X 4 quads. Reports diarrhea, since 2 days ago Patient currently denies nausea, vomiting. : No signs and/or symptoms were reported regarding the genitourinary system. EENT: Reports nasal congestion since 2 weeks ago. Derm: Skin is pink, warm \\T\\ dry. Musculoskeletal: Reports pain in left ankle and left knee. Injury Description: Pt states "when I got the chest pain, the pain was so bad that I fell". Pt denies head injury, denies LOC. 15:00 Reassessment: Patient is alert, oriented x 3, equal unlabored respirations, skin aa5 warm/dry/pink. Pt back from radiology. 16:16 Reassessment: Patient is alert, oriented x 3, equal unlabored respirations, skin aa5 warm/dry/pink. Patient states feeling better. To bedside to administer potassium, pt states "I can't drink that unless you give me Phenergan because I get very nauseated with it". PA was notified . 16:16 Pain: Pain currently is 5 out of 10 on a pain scale. aa5 16:35 Reassessment: Patient is alert, oriented x 3, equal unlabored respirations, skin aa5 warm/dry/pink. Pt sitting up in bed, appears comfortable. Denies any complaints at this time. . 18:30 Reassessment: Patient is alert, oriented x 3, equal unlabored respirations, skin aa5 warm/dry/pink. Repeat EKG completed by communications tower technician . 18:30 Reassessment: Lab contacted to draw repeat troponin, unsuccessful attempt to draw by ER aa5 tech. . 19:05 Neuro: Level of Consciousness is awake, alert, obeys commands, Oriented to person, rr5 place, time, situation, Appropriate for age. Respiratory: Airway is patent Respiratory effort is even, unlabored, Respiratory pattern is regular, symmetrical. 19:05 Cardiovascular: Capillary refill < 3 seconds Patient's skin is warm and dry. rr5 19:35 Reassessment: Patient appears in no apparent distress at this time. Patient is alert, rr5 oriented x 3, equal unlabored respirations, skin warm/dry/pink. discharge instruction given and explained without complaints made. Patient states feeling better. Vital Signs: 13:33 BP 105 / 86; Pulse 106; Resp 16; Temp 99.5(TE); Pulse Ox 100% ; Weight 48.08 kg; Height hb 4 ft. 10 in. (147.32 cm); Pain 7/10; 14:00 BP 119 / 96 Supine; Pulse 98; aa5 14:02 BP 101 / 71 Sitting; Pulse 110; aa5 14:30 BP 111 / 80; Pulse 101; Resp 16 S; Pulse Ox 98% on R/A; aa5 15:00 BP 156 / 75; Pulse 104; Resp 16 S; Pulse Ox 100% on R/A; aa5 15:41 BP 132 / 79; Pulse 99; Resp 18 S; Pulse Ox 100% on R/A; aa5 16:00 BP 142 / 93; Pulse 109; Resp 16 S; Pulse Ox 100% on R/A; aa5 16:45 BP 142 / 93; Pulse 109; Resp 16 S; Temp 99.0(O); Pulse Ox 100% on R/A; aa5 17:30 BP 143 / 85; Pulse 88; Resp 16 S; Pulse Ox 98% on R/A; aa5 18:51 BP 143 / 59; Pulse 69; Resp 16; Pulse Ox 98% on R/A; la1 19:30 BP 110 / 77; Pulse 93; Resp 17; Temp 98.5; Pulse Ox 99% ; rr5 13:33 Body Mass Index 22.15 (48.08 kg, 147.32 cm) hb 14:02 Pt states she is unable to stand at this time due to pain to her left leg, PA was aa5 notified of supine and sitting orthostatics. ED Course: 13:24 Patient arrived in ED. mr 13:24 Diya Mora MD is Private Physician. mr 13:32 Triage completed. hb 13:35 Arm band placed on right wrist. hb 13:53 Caio Briones PA is PHCP. cp 13:53 Tanner Robbins MD is Attending Physician. cp 13:54 Geena Angeles, LAUREL is Primary Nurse. aa5 14:00 Patient has correct armband on for positive identification. Placed in gown. Bed in low aa5 position. Call light in reach. Side rails up X2. 14:00 cafeteria monitor on. Pulse ox on. NIBP on. aa5 14:00 No provider procedures requiring assistance completed. Patient maintains SpO2 aa5 saturation greater than 95% on room air. 14:17 EKG done, by ED staff, reviewed by Caio BUSTILLOS. dh3 14:30 Initial lab(s) drawn, by al, sent to lab. Inserted saline lock: 22 gauge in right aa5 forearm, using aseptic technique. Blood collected. 14:33 Urine collected: clean catch specimen, clear. dh3 14:53 XRAY Chest (1 view) In Process Unspecified. EDMS 14:53 XRAY Femur LEFT In Process Unspecified. EDMS 14:53 XRAY Tib Fib LEFT In Process Unspecified. EDMS 19:00 Report given to LAUREL Ayala. aa5 19:30 IV discontinued, intact, bleeding controlled, No redness/swelling at site. Pressure rr5 dressing applied. Crutch training done. Knee immobilizer applied on left knee. Administered Medications: 14:38 Drug: Meclizine 12.5 mg Route: PO; aa5 18:51 Follow up: Response: No adverse reaction; Pain is decreased la1 14:38 Drug: TORadol - Ketorolac 15 mg Route: IVP; Site: right forearm; aa5 18:51 Follow up: Response: No adverse reaction; Pain is decreased la1 15:00 Drug: NS 0.9% 500 ml Route: IV; Rate: bolus; Site: right forearm; aa5 16:35 Drug: Phenergan 12.5 mg Route: IVP; Site: right forearm; aa5 18:52 Follow up: Response: No adverse reaction; Nausea is decreased la1 16:38 Drug: Digoxin Tablet 0.125 mg Route: PO; aa5 18:52 Follow up: Response: No adverse reaction la1 17:00 Drug: Potassium Effervescent Tablet 50 mEq Route: PO; la1 18:52 Follow up: Response: No adverse reaction la1 Intake: 13:30 IV: 500ml; Total: 500ml. aa5 Outcome: 19:08 Discharge ordered by . cp 19:36 Discharged to home ambulatory, with crutches, with family. rr5 19:36 Condition: stable 19:36 Discharge instructions given to patient, Instructed on discharge instructions, follow up and referral plans. medication usage, crutch walking, Demonstrated understanding of instructions, follow-up care, medications, crutch walking, Prescriptions given X 1. 19:39 Patient left the ED. rr5 Signatures: Dispatcher [employer] EDMD BedoyaAilyn díaz mr Angeles, Geena, RN RN aa5 Alexandre Mooney RN RN la1 Caio Briones PA PA cp Baxter, Heather, RN RN hb Herrera, De[facility] Jamie Hargrove RN RN rr5
[2019-03-03 20:06] VITALS: BP 110/77; TEMP 98.5; O2SAT 99
--- NOTE | 2019-03-04 09:55 | EKG ---
Test Date: 2019-03-03 Test Time: 18:02:40 Ion Implant Machine Operator: SCOTT MEASUREMENT RESULTS: Intervals: Rate: 110 FL: 126 QRSD: 86 QT: 344 QTc: 465 [place]: P: 44 FL: 126 QRS: 46 T: 40 INTERPRETIVE STATEMENTS: Sinus tachycardia Otherwise normal ECG Compared to ECG 03/03/2019 18:01:59 Sinus rhythm no longer present ST (T wave) deviation no longer present Electronically Signed On 03-04-19 09:54:14 CDT by Mack Ulrich
--- NOTE | 2019-03-04 09:56 | EKG ---
Test Date: 2019-03-03 Test Time: 14:17:24 [employer] Certified Internetwork Expert: AYAKA MEASUREMENT RESULTS: Intervals: Rate: 95 AL: 128 QRSD: 94 QT: 346 QTc: 434 [place]: P: 48 AL: 128 QRS: 33 T: 50 INTERPRETIVE STATEMENTS: Sinus rhythm with occasional premature ventricular complexes Incomplete right bundle branch block Borderline ECG Compared to ECG 01/24/2019 22:08:43 Ventricular premature complex(es) now present Incomplete right bundle-branch block now present Sinus tachycardia no longer present ST (T wave) deviation no longer present Electronically Signed On 03-04-19 09:55:00 CDT by Mack Ulrich
== END 2019-03-03 19:39 | disposition home or self-care (01) ==
LOC: ER 13:21
DX: R07.9 Chest pain, unspecified (principal); M79.605 Pain in left leg; F17.210 Nicotine dependence, cigarettes, uncomplicated; I10 Essential (primary) hypertension; E03.9 Hypothyroidism, unspecified; I25.2 Old myocardial infarction; I34.1 Nonrheumatic mitral (valve) prolapse; G40.909 Epilepsy, unspecified, not intractable, without status epilepticus; Z79.01 Long term (current) use of anticoagulants; Z88.0 Allergy status to penicillin; Z88.1 Allergy status to other antibiotic agents; Z88.2 Allergy status to sulfonamides; Z88.5 Allergy status to narcotic agent; Z88.6 Allergy status to analgesic agent; Z88.8 Allergy status to other drugs, medicaments and biological substances; Z95.0 Presence of cardiac pacemaker; Z91.040 Latex allergy status; Z91.048 Other nonmedicinal substance allergy status
CPT/HCPCS: 36415; 71045; 80048; 80076; 80162; 81003; 81025; 82553; 83735; 83880; 84484; 85025; 85610; 93005; 96374; 96375; 99285; J2550

== ENCOUNTER 2019-04-16 21:58 | Emergency (ER) | payer MEDICAID ==
--- OUTSIDE RECORDS SUMMARY | 2019-04-16 22:06 | XMS REPORT | Clinical Summary ---
:1980 Author Organization [facility] Address [address] [place] [address] Care Team Providers Name Role Phone Unavailable [...] unspecified MD Fritz type (Primary Dx) after 04/15/2018 Social History Tobacco Use Types Packs/Day Years [...] Taken Blood Pressure 113/74 09/04/2018 5:48 PM MACHINIST/MACHINE BUILDER Pulse 135 09/04/2018 5:48 PM MACHINIST/MACHINE BUILDER Temperature 36.7 C (98 F) 09/04/2018 5:48 PM MACHINIST/MACHINE BUILDER Respiratory Rate 18 09/04/2018 5:48 PM MACHINIST/MACHINE BUILDER Oxygen Saturation 96% 09/04/2018 5:48 PM MACHINIST/MACHINE BUILDER Inhaled Oxygen Concentration - - Weight - - Height 149.9 cm (4' 11") 09/04/2018 6:00 PM MACHINIST/MACHINE BUILDER Body Mass Index - - Plan of Treatment Health Maintenance Due Date Last Done Comments INFLUENZA VACCINE 04/25/2019 Procedures Procedure Name Priority Date/Time Associated Diagnosis Comments ECG 12-LEAD STAT 09/04/2018 6:02 PM Results for this MACHINIST/MACHINE BUILDER procedure are in the results section. after 04/15/2018 Results ECG 12 lead (09/04/2018 6:02 PM MACHINIST/MACHINE BUILDER) Ventricular rate 106 [facility] Atrial rate 106 [facility] ME interval 120 [facility] QRSD interval 86 [facility] QT interval 326 [facility] QTC interval 433 [facility] P axis 1 55 [facility] QRS axis 1 55 [facility] T wave axis 50 [facility] EKG impression Sinus [facility] tachycardia-Otherwise normal ECG-- Specimen Narrative Performed At Performing Organization Address City/State/Zipcode Phone Number [facility] [address] [place] [address] after 04/15/2018 Advance Directives Patient has advance care planning documents on file. For more information, please contact:Beny Ortiz[address] [place] [address]
--- OUTSIDE RECORDS SUMMARY | 2019-04-16 22:07 | XMS REPORT | Clinical Summary ---
:1980 Author Organization [facility] Address [address] [place] [address] Care Team Providers Name Role Phone Diya [...] Antonio Gray MD Arif, Sahar, MD after 04/15/2018 Social History Tobacco Use Types [...] Taken Blood Pressure 90/57 08/21/2018 12:05 PM TANK ASSEMBLER Pulse 94 08/21/2018 12:05 PM TANK ASSEMBLER Temperature 37 C (98.6 F) 08/21/2018 12:05 PM TANK ASSEMBLER Respiratory Rate 17 08/21/2018 12:05 PM TANK ASSEMBLER Oxygen Saturation 99% 08/21/2018 12:05 PM TANK ASSEMBLER Inhaled Oxygen Concentration 21% 08/19/2018 3:10 AM TANK ASSEMBLER Weight 49.9 kg (110 lb) 08/18/2018 12:00 PM TANK ASSEMBLER Height 151.1 cm (4' 11.5") 08/18/2018 12:00 PM TANK ASSEMBLER Body Mass Index 21.85 08/18/2018 12:00 PM TANK ASSEMBLER Plan of Treatment Not on file Procedures Procedure Name Priority Date/Time Associated Comments Diagnosis ARRYTHMIA IMPLANT 11/12/2018 1:43 REPORT - SCAN PM TANK ASSEMBLER ARRYTHMIA IMPLANT 11/12/2018 1:43 REPORT - SCAN PM TANK ASSEMBLER ARRYTHMIA IMPLANT 11/12/2018 1:43 REPORT - SCAN PM TANK ASSEMBLER RHYTHM STRIP - SCAN 08/22/2018 11:10 AM TANK ASSEMBLER POCT-GLUCOSE METER Routine 08/21/2018 10:17 Results for this AM TANK ASSEMBLER procedure are in the results section. MR BRAIN WITHOUT IV Routine 08/21/2018 9:20 Results for this CONTRAST AM TANK ASSEMBLER procedure are in the results section. MR MRA NECK WITHOUT IV Routine 08/21/2018 9:20 Results for this CONTRAST AM TANK ASSEMBLER procedure are in the results section. MR MRA HEAD WITHOUT Routine 08/21/2018 9:20 Results for this CONTRAST AM TANK ASSEMBLER procedure are in the results section. POCT-GLUCOSE METER Routine 08/20/2018 9:22 Results for this PM TANK ASSEMBLER procedure are in the results section. POCT-GLUCOSE METER Routine 08/20/2018 5:54 Results for this PM TANK ASSEMBLER procedure are in the results section. POCT-GLUCOSE METER Routine 08/20/2018 12:34 Results for this PM TANK ASSEMBLER procedure are in the results section. XR CHEST 1 VIEW STAT 08/20/2018 11:52 Results for this PORTABLE/BEDSIDE AM TANK ASSEMBLER procedure are in the results section. POCT-GLUCOSE METER Routine 08/20/2018 9:00 Results for this AM TANK ASSEMBLER procedure are in the results section. BASIC METABOLIC PANEL Routine 08/20/2018 6:03 Results for this (7) AM TANK ASSEMBLER procedure are in the results section. POCT-GLUCOSE METER Routine 08/19/2018 9:00 Results for this PM TANK ASSEMBLER procedure are in the results section. POCT-GLUCOSE METER Routine 08/19/2018 4:57 Results for this PM TANK ASSEMBLER procedure are in the results section. ECHOCARDIOGRAM REPORT - 08/19/2018 4:20 SCAN PM TANK ASSEMBLER VITAMIN B12 AND FOLATE Routine 08/19/2018 4:44 Results for this AM TANK ASSEMBLER procedure are in the results section. BASIC METABOLIC PANEL Routine 08/19/2018 4:44 Results for this (7) AM TANK ASSEMBLER procedure are in the results section. 2D ECHO W/ DOPPLER Routine 08/18/2018 5:34 Results for this (CW/PW/COLOR) PM TANK ASSEMBLER procedure are in the results section. RPR Routine 08/18/2018 3:44 Results for this AM TANK ASSEMBLER procedure are in the results section. TSH/FREE T4 IF Routine 08/18/2018 3:44 Results for this INDICATED AM TANK ASSEMBLER procedure are in the results section. CBC (HEMOGRAM ONLY) Routine 08/18/2018 3:44 Results for this AM TANK ASSEMBLER procedure are in the results section. LIPID PANEL Routine 08/18/2018 3:44 Results for this AM TANK ASSEMBLER procedure are in the results section. HEPATIC FUNCTION PANEL Routine 08/18/2018 3:44 Results for this AM TANK ASSEMBLER procedure are in the results section. HEMOGLOBIN A1C Routine 08/18/2018 3:44 Results for this AM TANK ASSEMBLER procedure are in the results section. BASIC METABOLIC PANEL Routine 08/18/2018 3:44 Results for this (7) AM TANK ASSEMBLER procedure are in the results section. after 04/15/2018 Results ARRYTHMIA IMPLANT REPORT - SCAN (11/12/2018 1:43 PM TANK ASSEMBLER)Only the most recent of3 resultswithin the time period is included. Narrative Performed At RHYTHM STRIP - SCAN (08/22/2018 11:10 AM TANK ASSEMBLER) Narrative Performed At POC-Glucose meter (08/21/2018 10:17 AM TANK ASSEMBLER)Only the most recent of7 resultswithin the time period is included. POC-Glucose Meter 102Comment: TESTED AT 70 - 110 mg/dL [facility] [address] [facility] [address] Specimen Blood Performing Organization Address City/State/Zipcode Phone Number [address] [address] CENTER MR brain without IV contrast (08/21/2018 9:20 AM TANK ASSEMBLER) Specimen Narrative Performed At FINAL REPORT [facility] MRI Brain without contrast Clinical History: [...] MD Report Verified Date/Time:08/21/2018 09:25:25 Reading Location: [address] Neuro Reading Room Procedure Note Interface, External Ris In - 08/21/2018 9:49 AM TANK ASSEMBLER FINAL REPORT MRI Brain without contrast Clinical [...] Report Verified Date/Time: 08/21/2018 09:25:25 Reading Location: [address] Neuro Reading Room Performing Organization Address City/State/Zipcode Phone Number [email or web address] MRA neck without IV contrast (08/21/2018 9:20 AM TANK ASSEMBLER) Specimen Narrative Performed At FINAL REPORT [facility] MRA Head CLINICAL HISTORY: Ischemic Stroke TECHNIQUE: MRA of the head utilizing 3-D pbyl-zz-jdrqct technique, with 3-D reconstructions. COMPARISON: None FINDINGS: There is no evidence of intracranial aneurysm, focal stenosis, or major branch vessel occlusion. IMPRESSION: No evidence for a major [place] proximal branch vessel occlusion. MRA Neck CLINICAL HISTORY: Ischemic Stroke TECHNIQUE: MRA of the neck utilizing 2-D and 3-D yzdm-gq-zkbqqf technique, with 3-D reconstructions. COMPARISON: None FINDINGS: The carotid arteries in the neck are patent including their bifurcations. There is antegrade flow in the vertebral arteries in the neck. IMPRESSION: No evidence of hemodynamically significant stenosis in the cervical carotid or vertebral arteries by NASCET criteria. Signed: Santos Winn MD Report Verified Date/Time:08/21/2018 09:32:09 Reading Location: [address] Neuro Reading Room Procedure Note Interface, External [facility] In - 08/21/2018 9:48 AM TANK ASSEMBLER FINAL REPORT MRA Head CLINICAL HISTORY: Ischemic Stroke TECHNIQUE: MRA of the head utilizing 3-D uacj-vy-rxpnfj technique, with 3-D reconstructions. COMPARISON: None FINDINGS: There is no evidence of intracranial aneurysm, focal stenosis, or major branch vessel occlusion. IMPRESSION: No evidence for a major [place] proximal branch vessel occlusion. MRA Neck CLINICAL HISTORY: Ischemic Stroke TECHNIQUE: MRA of the neck utilizing 2-D and 3-D dwes-ke-qyiotp technique, with 3-D reconstructions. COMPARISON: None FINDINGS: The carotid arteries in the neck are patent including their bifurcations. There is antegrade flow in the vertebral arteries in the neck. IMPRESSION: No evidence of hemodynamically significant stenosis in the cervical carotid or vertebral arteries by NASCET criteria. Signed: Santos Winn MD Report Verified Date/Time: 08/21/2018 09:32:09 Reading Location: [address] Neuro Reading Room Performing Organization Address City/State/Zipcode Phone Number [email or web address] MRA head without IV contrast (08/21/2018 9:20 AM TANK ASSEMBLER) Specimen Narrative Performed At FINAL REPORT [facility] MRA Head CLINICAL HISTORY: Ischemic Stroke TECHNIQUE: MRA of the head utilizing 3-D ypgc-mx-rgjxdy technique, with 3-D reconstructions. COMPARISON: None FINDINGS: There is no evidence of intracranial aneurysm, focal stenosis, or major branch vessel occlusion. IMPRESSION: No evidence for a major [place] proximal branch vessel occlusion. MRA Neck CLINICAL HISTORY: Ischemic Stroke TECHNIQUE: MRA of the neck utilizing 2-D and 3-D orfj-eq-cswbfm technique, with 3-D reconstructions. COMPARISON: None FINDINGS: The carotid arteries in the neck are patent including their bifurcations. There is antegrade flow in the vertebral arteries in the neck. IMPRESSION: No evidence of hemodynamically significant stenosis in the cervical carotid or vertebral arteries by NASCET criteria. Signed: Santos Winn MD Report Verified Date/Time:08/21/2018 09:32:09 Reading Location: [facility] Neuro Reading Room Procedure Note Interface, External [facility] In - 08/21/2018 9:48 AM TANK ASSEMBLER FINAL REPORT MRA Head CLINICAL HISTORY: Ischemic Stroke TECHNIQUE: MRA of the head utilizing 3-D uudu-gh-osbune technique, with 3-D reconstructions. COMPARISON: None FINDINGS: There is no evidence of intracranial aneurysm, focal stenosis, or major branch vessel occlusion. IMPRESSION: No evidence for a major [place] proximal branch vessel occlusion. MRA Neck CLINICAL HISTORY: Ischemic Stroke TECHNIQUE: MRA of the neck utilizing 2-D and 3-D pole-ud-qjqxex technique, with 3-D reconstructions. COMPARISON: None FINDINGS: The carotid arteries in the neck are patent including their bifurcations. There is antegrade flow in the vertebral arteries in the neck. IMPRESSION: No evidence of hemodynamically significant stenosis in the cervical carotid or vertebral arteries by NASCET criteria. Signed: Santos Winn MD Report Verified Date/Time: 08/21/2018 09:32:09 Reading Location: [facility] [id number] Neuro Reading Room Performing Organization Address City/State/Zipcode Phone Number [facility] XR chest 1 view portable / bedside (08/20/2018 11:52 AM TANK ASSEMBLER) Specimen Narrative Performed At FINAL REPORT [facility] RAD, CHEST, 1 VIEW, NON DEPT INDICATION: [...] MD Report Verified Date/Time:08/20/2018 12:04:06 Reading Location: [facility] Radiology Reading Room Procedure Note Interface, External Ris In - 08/20/2018 12:53 PM TANK ASSEMBLER FINAL REPORT RAD, CHEST, 1 VIEW, NON [...] Report Verified Date/Time: 08/20/2018 12:04:06 Reading Location: [facility] Radiology Reading Room Performing Organization Address City/[facility] [address]/Zipcode Phone Number RIS Basic metabolic panel (08/20/2018 6:03 AM TANK ASSEMBLER)Only the most recent of3 resultswithin the time period is included. Sodium 140 136 - 145 meq/L [facility] Potassium 4.0 3.5 - 5.1 meq/L [facility] Chloride 108 (H) 98 - 107 meq/L [facility] CO2 25 22 - 29 meq/L [facility] BUN 11 7 - 21 mg/dL [facility] Creatinine 0.69 0.57 - 1.25 mg/dL [facility] Glucose 94 70 - 105 mg/dL [facility] Calcium 9.5 8.4 - 10.2 mg/dL [facility] EGFR 96Comment: ESTIMATED GFR IS mL/min/1.73 sq m [facility] NOT ACCURATE CREATININE [facility] CENTER CLEARANCE IN PREDICTING GLOMERULAR FILTRATION RATE. ESTIMATED GFR IS NOT APPLICABLE FOR DIALYSIS PATIENTS. Specimen Blood Performing Organization Address [facility] [address]/[facility] Centercode Phone Number [address] [address] CENTER ECHOCARDIOGRAM REPORT - SCAN (08/19/2018 4:20 PM TANK ASSEMBLER) Narrative Performed At Vitamin B12 and Folate (08/19/2018 4:44 AM TANK ASSEMBLER) Vitamin B12 524 213 - 816 pg/mL [facility] Folate 13.5 >=7.0 ng/mL [facility] Specimen Blood Performing Organization Address City/[facility] [address]/Zipcode Phone Number [place] [phone] [place] [address] [phone] CENTER 2D Echo W/Doppler(CW/PW/Color) (08/18/2018 5:34 PM TANK ASSEMBLER) Ejection [facility] ECHO HEARTLAB MKCKESSON [facility] Specimen Narrative Performed At Transthoracic Echocardiography Report (TTE) [facility] ECHO HEARTLAB [facility] Demographics Patient Name JENNI DRAPER Date of Study 08/18/2018 MIGUEL [id number] GenderFemale Visit Number [id number] Unknown [id number] Room Number 2443 Number Date of Birth1980Referring Physician Antonio CHAUDHARI Age38 year(s)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 Rocío Koenig [facility] JametIPhysician CHAVA Lopez Procedure Type [...] External Ris In - 08/19/2018 3:36 PM TANK ASSEMBLER Transthoracic Echocardiography Report (TTE) Demographics Patient Name HARSH JENNI Date of Study 08/18/2018 MIGUEL Gender Female Visit Number [id number] Race Unknown Room Number 2443 Number Date of 1980 Referring Physician Antonio CHAUDHARI Age 38 year(s) 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 Prakash Jo Interpreting Gerhard Brennan Physician Procedure [...] TR Gradient: 16.82 mmHg Performing Organization Address City/[facility] [address]/[facility] Centercode Phone Number [facility] ECHO HEARTLAB MKCKESSON CPACS TSH/Free T4 If Indicated (08/18/2018 3:44 AM TANK ASSEMBLER) TSH 3.18 0.35 - 4.94 uIU/mL [facility] Specimen Blood Performing Organization Address City/[facility] [address]/[facility] Centercode Phone Number [address] [address] ROBERTA RPR (08/18/2018 3:44 AM TANK ASSEMBLER) RPR Nonreactive Nonreactive [facility] Specimen Blood Performing Organization Address [facility] Centercode Phone Number [address] [address] ROBERTA CBC (Hemogram only) (08/18/2018 3:44 AM TANK ASSEMBLER) WBC 5.7 3.5 - 10.5 K/L [facility] RBC 4.44 3.93 - 5.22 M/L [facility] Hemoglobin 12.9 11.2 - 15.7 GM/DL [facility] Hematocrit 39.8 34.1 - 44.9 % [facility] MCV 89.6 79.4 - 94.8 fL [facility] MCH 29.1 25.6 - 32.2 pg [facility] MCHC 32.4 32.2 - 35.5 GM/DL [facility] RDW 12.6 11.7 - 14.4 % [facility] Platelets 210 150 - 450 K/CU MM [facility] MPV 10.3 9.4 - 12.3 fL [facility] nRBC 0 0 - 0 /100 WBC [facility] Specimen Blood Performing Organization Address City/State/Zipcode Phone Number [address] [address] CENTER Hemoglobin A1c (08/18/2018 3:44 AM TANK ASSEMBLER) Hemoglobin A1C 5.3 4.3 - 6.1 % [facility] Specimen Blood Performing Organization Address City/[facility] [address]/Zipcode Phone Number [address] [address] CENTER Hepatic function panel (08/18/2018 3:44 AM TANK ASSEMBLER) Protein, Total 6.9Comment: Specimen 6.0 - 8.3 gm/dL [facility] slightly hemolyzed [facility] Albumin 3.8Comment: Specimen 3.5 - 5.0 g/dL [facility] slightly hemolyzed [facility] Total Bilirubin 0.3Comment: Specimen 0.2 - 1.2 mg/dL [facility] hemolyzed [facility] Bilirubin, Direct 0.1Comment: Specimen 0.1 - 0.5 mg/dL [facility] hemolyzed [facility] Alkaline Phosphatase 95 40 - 150 U/L [facility] AST 20Comment: Specimen 5 - 34 U/L [facility] hemolyzed [facility] ALT 13Comment: Specimen 6 - 55 U/L [facility] hemolyzed [facility] Specimen Blood Performing Organization Address [facility] [address]/[facility] Centercodc Phone Number [facility] [address] [place] [address] [phone] ROBERTA Lipid panel (08/18/2018 3:44 AM TANK ASSEMBLER) Triglycerides 121Comment: Specimen slightly mg/dL [facility] Cholesterol 172Comment: Specimen slightly mg/dL [facility] HDL 36 mg/dL [facility] LDL Calculated 112 mg/dL [facility] Specimen Blood Narrative Performed At Triglyceride Reference Range: [facility] Low Risk <150 [id number] High Risk 200-499 Very High Risk>=500 Cholesterol Reference Range: Low Risk <200 [id number] High Risk>240 HDL Cholesterol Reference Range: Low Risk >=60 High Risk <40 LDL Cholesterol Reference Range: Optimal<100 Near [id number] [id number] Urzx447-500 Very High >=190 Performing Organization Address City/State/Zipcode Phone Number [facility] [address] [place] [address] ROBERTA after 04/15/2018 Insurance Payer Benefit Plan / Group Subscriber ID Type Phone Address [employer] MED[place]ID [place] xxxxxxxxx Advance Directives For more information, please contact:[place] [address] [address] [place], [place] [phone] Code Status Date Activated Date Inactivated Comments Full Code 08/17/2018 7:42 PM This code status was determined by: Patient
--- OUTSIDE RECORDS SUMMARY | 2019-04-16 22:07 | XMS REPORT ---
:1980 Author Organization [facility] Address [address] [place] [address] Care Team Providers Name Role Phone MILTONTAMARA [...] Facility Department ID 2017-09-06 2017-09-08 [facility] [id number] 10:12:00 02:32:00 LYLY Results Test Description Test Time Test Comments Text Results Atomic Results Result Comments POCT-GLUCOSE METER 2018-08-21 10:22:00 Test Item Value Reference Range Comments POC-GLUCOSE METER (BEAKER) (test 102 mg/dL 70-110 TESTED AT [facility] [address] [facility] wfoo=1470) [facility] [address] MR, MRA, BRAIN, WITHOUT [id number] 09:32:00Reason for exam:-> Ischemic Stroke EvaluationFINAL REPORT MRA Head CLINICAL HISTORY: Ischemic Stroke TECHNIQUE: MRA of the head utilizing 3-D time-of- flight technique, with 3-D reconstructions. COMPARISON: None FINDINGS: There is no evidence of intracranial aneurysm, focal stenosis, or major branch vessel occlusion. IMPRESSION: No evidence for a major [place] proximal branch vessel occlusion. MRA Neck CLINICAL HISTORY: Ischemic Stroke TECHNIQUE : MRA of the neck utilizing 2-D and 3-D ysym-jh-ibaiwr technique, with 3-D reconstructions. COMPARISON: None FINDINGS: The carotid arteries in the neck are patent including their bifurcations. There is antegrade flow in the vertebral arteries in the neck. IMPRESSION: No evidence of hemodynamically significant stenosis in the cervical carotid or vertebral arteries by NASCET criteria. Signed: Santos Neff MDReport Verified Date/Time: 08/21/2018 09:32: 09 Reading Location: [address] Neuro Reading Room MR, MRA, NECK, WITHOUT IV [id number] 09:32:00Reason for exam:->Ischemic Stroke EvaluationFINAL REPORT MRA Head CLINICAL HISTORY: Ischemic Stroke TECHNIQUE: MRA of the head utilizing 3-D nxxo-mk-cwxgoy technique, with 3-D reconstructions. COMPARISON: None FINDINGS: There is no evidence of intracranial aneurysm, focal stenosis, or major branch vessel occlusion. IMPRESSION: No evidence for a major [place] proximal branch vessel occlusion. MRA Neck CLINICAL HISTORY: Ischemic Stroke TECHNIQUE: MRA of the neck utilizing 2-D and 3-D yrbc-ry-juqoiz technique, with 3-D reconstructions. COMPARISON: None FINDINGS: The carotid arteries in the neck are patent including their bifurcations. There is antegrade flow in the vertebral arteries in the neck. IMPRESSION: No evidence of hemodynamically significant stenosis in the cervical carotid or vertebral arteries by NASCET criteria. Signed: Santos Neff MDRiman Verified Date/Time: 08/21/2018 09:32:09 Reading Location: [address] Neuro Reading Room MR, BRAIN, WITHOUT [id number] 09:25: 00Reason for exam:->Ischemic Stroke EvaluationFINAL REPORT [...] Verified Date/Time: 08/21/2018 09:25:25 Reading Location : [facility] C013V Neuro Reading Room POCT-GLUCOSE [id number] 21:26:00 Test Item Value Reference Range Comments POC-GLUCOSE METER (BEAKER) 119 mg/dL 70-110 TESTED AT [address] (test haaq=9162) [facility] [address] POCT-GLUCOSE [id number] 18:03:00 Test Item Value Reference Range Comments POC-GLUCOSE METER (BEAKER) 119 mg/dL 70-110 TESTED AT [address] (test pfmv=1038) [place] [id number] POCT-GLUCOSE [id number] 12:39:00 Test Item Value Reference Range Comments POC-GLUCOSE METER (BEAKER) 120 mg/dL 70-110 TESTED AT [address] (test btvf=7131) [facility] [address] RAD, CHEST, 1 VIEW, NON [id number] 12:04:00Reason for exam:->To Locate Heart Device (Pacemaker)Should [...] MDReport Verified Date/Time: 08/20/2018 12:04:06 [facility] POCT-GLUCOSE [id number] 09:17:00 Test Item Value Reference Range Comments POC-GLUCOSE METER (BEAKER) 121 mg/dL 70-110 TESTED AT [address] (test ghle=4096) [facility] [address] BASIC METABOLIC [id number] 06:56:00 Test Item Value Reference Range Comments SODIUM (BEAKER) (test 140 meq/L 136-145 znzi=190) POTASSIUM (BEAKER) (test 4.0 meq/L 3.5-5.1 davn=258) CHLORIDE (BEAKER) (test 108 meq/L 98-107 zubw=593) CO2 (BEAKER) (test 25 meq/L 22-29 etzf=146) BLOOD UREA NITROGEN 11 mg/dL 7-21 (BEAKER) (test imsy=975) CREATININE (BEAKER) (test 0.69 mg/dL 0.57-1.25 ghru=524) GLUCOSE RANDOM (BEAKER) 94 mg/dL 70-105 (test oacm=414) CALCIUM (BEAKER) (test 9.5 mg/dL 8.4-10.2 zxxz=053) EGFR (BEAKER) (test 96 mL/min/1.73 sq m ESTIMATED GFR IS NOT cerv=1693) ACCURATE CREATININE CLEARANCE IN PREDICTING GLOMERULAR FILTRATION RATE. ESTIMATED GFR IS NOT APPLICABLE FOR DIALYSIS PATIENTS. POCT-GLUCOSE [id number] 21:09:00 Test Item Value Reference Range Comments POC-GLUCOSE METER (BEAKER) 109 mg/dL 70-110 TESTED AT [address] (test zhad=1225) [place] [id number] POCT-GLUCOSE [id number] 17:15:00 Test Item Value Reference Range Comments POC-GLUCOSE METER (BEAKER) 117 mg/dL 70-110 TESTED AT [address] (test wdwo=7899) [place] [address] VITAMIN B12 AND [id number] 06:39:00 Test Item Value Reference Range Comments VITAMIN B12 (BEAKER) (test lshd=221) 524 pg/mL 213-816 FOLATE (BEAKER) (test dxio=794) 13.5 ng/mL >=7.0 BASIC METABOLIC [id number] 05:48:00 Test Item Value Reference Range Comments SODIUM (BEAKER) (test 139 meq/L 136-145 qqqx=646) POTASSIUM (BEAKER) (test 4.0 meq/L 3.5-5.1 ohmc=152) CHLORIDE (BEAKER) (test 107 meq/L 98-107 ktup=413) CO2 (BEAKER) (test 24 meq/L 22-29 zdbc=284) BLOOD UREA NITROGEN 11 mg/dL 7-21 (BEAKER) (test tlew=394) CREATININE (BEAKER) (test 0.72 mg/dL 0.57-1.25 jtej=489) GLUCOSE RANDOM (BEAKER) 107 mg/dL 70-105 (test lnhp=679) CALCIUM (BEAKER) (test 9.5 mg/dL 8.4-10.2 ebbk=313) EGFR (BEAKER) (test 91 mL/min/1.73 sq m ESTIMATED GFR IS NOT euaz=4463) ACCURATE CREATININE CLEARANCE IN PREDICTING GLOMERULAR FILTRATION RATE. ESTIMATED GFR IS NOT APPLICABLE FOR DIALYSIS PATIENTS. [id number] 15:42:00 Test Item Value Reference Range Comments RPR SCREEN (BEAKER) (test ovuo=928) Nonreactive Nonreactive HEMOGLOBIN [id number] 09:14:00 Test Item Value Reference Range Comments HEMOGLOBIN A1C (BEAKER) (test vidr=613) 5.3 % 4.3-6.1 TSH/FREE T4 IF [id number] 04:49:00 Test Item Value Reference Range Comments THYROID STIMULATING HORMONE (BEAKER) (test 3.18 uIU/mL 0.35-4.94 rhzz=970) BASIC METABOLIC [id number] 04:38:00 Test Item Value Reference Range Comments SODIUM (BEAKER) (test 139 meq/L 136-145 jtym=976) POTASSIUM (BEAKER) (test 4.2 meq/L 3.5-5.1 Specimen slightly sequ=359) hemolyzed CHLORIDE (BEAKER) (test 107 meq/L 98-107 khqw=299) CO2 (BEAKER) (test 26 meq/L 22-29 qddg=835) BLOOD UREA NITROGEN 10 mg/dL 7-21 (BEAKER) (test rird=965) CREATININE (BEAKER) (test 0.73 mg/dL 0.57-1.25 Specimen slightly gztf=081) hemolyzed GLUCOSE RANDOM (BEAKER) 104 mg/dL 70-105 (test nmna=991) CALCIUM (BEAKER) (test 9.7 mg/dL 8.4-10.2 qlzc=423) EGFR (BEAKER) (test 90 mL/min/1.73 sq m ESTIMATED GFR IS NOT sohx=1456) ACCURATE CREATININE CLEARANCE IN PREDICTING GLOMERULAR FILTRATION RATE. ESTIMATED GFR IS NOT APPLICABLE FOR DIALYSIS PATIENTS. LIPID [id number] 04:38:00 Test Item Value Reference Range Comments TRIGLYCERIDES (BEAKER) (test 121 mg/dL Specimen slightly hemolyzed bldk=122) CHOLESTEROL (BEAKER) (test 172 mg/dL Specimen slightly hemolyzed qfcb=304) HDL CHOLESTEROL (BEAKER) (test 36 mg/dL ttxg=965) LDL CHOLESTEROL CALCULATED 112 mg/dL (BEAKER) (test tbdk=519) Triglyceride Reference Range: Low Risk <150 Borderline 150- 199 High Risk 200-499 Very High Risk >=500Cholesterol Reference Range: Low Risk <200 Borderline 200-239 High Risk > 240HDL Cholesterol Reference Range: Low Risk >=60 High Risk <40LDL Cholesterol Reference Range: Optimal <100 Near Optimal 100-129 Borderline 130-159 High 160-189 Very High >=190HEPATIC FUNCTION [id number] 04:38:00 Test Item Value Reference Range Comments TOTAL PROTEIN (BEAKER) (test 6.9 gm/dL 6.0-8.3 Specimen slightly hemolyzed olpo=139) ALBUMIN (BEAKER) (test 3.8 g/dL 3.5-5.0 Specimen slightly hemolyzed llqg=9026) BILIRUBIN TOTAL (BEAKER) (test 0.3 mg/dL 0.2-1.2 Specimen slightly hemolyzed hebr=936) BILIRUBIN DIRECT (BEAKER) (test 0.1 mg/dL 0.1-0.5 Specimen slightly hemolyzed cyir=089) ALKALINE PHOSPHATASE (BEAKER) 95 U/L 40-150 (test bwsa=057) AST (SGOT) (BEAKER) (test 20 U/L 5-34 Specimen slightly hemolyzed txca=004) ALT (SGPT) (BEAKER) (test 13 U/L 6-55 Specimen slightly hemolyzed ymnp=634) CBC (HEMOGRAM ONLY)2018-08-18 03:55:00 Test Item Value Reference Range Comments WHITE BLOOD CELL COUNT (BEAKER) (test gfyf=382) 5.7 K/ L 3.5-10.5 RED BLOOD CELL COUNT (BEAKER) (test jtvr=648) 4.44 M/ L 3.93-5.22 HEMOGLOBIN (BEAKER) (test nrzh=599) 12.9 GM/DL 11.2-15.7 HEMATOCRIT (BEAKER) (test wtff=916) 39.8 % 34.1-44.9 MEAN CORPUSCULAR VOLUME (BEAKER) (test xmbl=027) 89.6 fL 79.4-94.8 MEAN CORPUSCULAR HEMOGLOBIN (BEAKER) (test 29.1 pg 25.6-32.2 nlte=716) MEAN CORPUSCULAR HEMOGLOBIN CONC (BEAKER) (test 32.4 GM/DL 32.2-35.5 cokg=442) RED CELL DISTRIBUTION WIDTH (BEAKER) (test 12.6 % 11.7-14.4 ityb=514) PLATELET COUNT (BEAKER) (test olcy=650) 210 K/CU MM 150-450 MEAN PLATELET VOLUME (BEAKER) (test wleg=680) 10.3 fL 9.4-12.3 NUCLEATED RED BLOOD CELLS (BEAKER) (test 0 /100 WBC 0-0 maec=754) AFB Culture and [id number] 13:24:00Specimen/Source: Wound/ PACEMAKERCollected: 09/05/2017 19:45 Status: Final Last Updated: 2017 13:24 LBY-Asnri-Hcjwvyblzznb (Final) (Final) 09/07/17 No acid fast bacill seen on direct smear Culture Result (Final) (Final) 11/01/17 No growth of AFB at six (6) weeksFungus Culture with [id number] 12:12: 00Specimen/Source: Wound/PACEMAKERCollected: 09/05/2017 19:45 Status: Final Last Updated: 10/22/2017 12:12 Fungal Smear Result (Final) (Final) 09/06/17 No yeast or hyphae seen Culture Result (Final) (Final) 10/22/17 No fungus isolated at 6 weeksCulture, Blood [id number] 08:23:00Specimen: BloodCollected: 09/04/2017 20:30 Status: Final Last Updated: 09/10/2017 08: 23 Culture Result (Final) (Final) No Growth After 5 DaysCulture, Blood [id number] 08:23:00Specimen: BloodCollected: 09/04/2017 20:15 Status: Final Last Updated: 09/10/2017 08:23 Culture Result (Final) (Final) No Growth After 5 DaysCulture, Wound [id number] 08:52:00Specimen: WoundCollected: 09/05/2017 19:45 Status: Final Last Updated: 09/08/2017 08: 52 Gram Stain (Final) (Final) 09/06/17 No organisms seen, Few WBC's Culture Result (Final) (Final) 09/08/17 Anaerobic culture:No anaerobes isolated at 3 days Isolate (Final) (Final) 09/07/17Few Staph-coag positive Isolate Staph-coag positive JERMAINE (mcg/ml) Amoxicillin/Clav (AUG)<=4/2 Susceptible Ampicillin (AM) >8 Resistant Ampicillin/Sulb (A/S) <=8/4 Susceptible Cefazolin (CFZ) <=4 Susceptible Ceftriaxone (HAND BUNCH MAKER) <=4 Susceptible Chloramphenicol (C) <=8 Susceptible Ciprofloxacin (CP) <=1 Susceptible Clindamycin (CM) 0.5 Susceptible Erythromycin (E) <=0.25 Susceptible Gentamicin (GM) <=1 Susceptible Imipenem (IMP) <=4 Susceptible Levofloxacin (LEV) <=0.5 Susceptible Linezolid (LNZ) 4 Susceptible Oxacillin (OX1) 0.5 Susceptible Penicillin (P) >8 Resistant Rifampin ( RA) <=1 Susceptible Tetracycline (TE) <=1 Susceptible Trimethoprim/Sulfa <=0.5/9.Susceptible (SXT) 5 Vancomycin (VA) 2 SusceptibleRenal [id number] 08:51: 00 Test Item Value Reference Range [...] the National Kidney Foundation,http://nkdep.nih .gov CBC with [id number] 07:39:00 Test Item Value Reference Range Comments [...] Lymph Abs (test code=ALYMPH) 1.7 K/cumm 0.5-4.6 [place] Abs (test code=AMONO) 0.3 K/cumm 0.0-1.2 Eos Abs (test code=AEOS) 0.29 K/cumm 0.00-0.74 Baso Abs (test code=ABASO) 0.0 K/cumm 0.00-0.21 Vancomycin, [id number] 12:33:00 Test Item Value Reference Range Comments Vanco, Trou (test code=VANTR) 7.9 ug/mL 10.0-20.0 Magnesium, [id number] 06:37:00 Test Item Value Reference Range Comments Magnesium (test code=MG) 2.4 mg/dL 1.7-2.5 Renal [id number] 06:29:00 Test Item Value Reference Range Comments [...] the National Kidney Foundation,http://nkdep.nih .gov BHCG, Serum, [id number] 06:26:00 Test Item Value Reference Range Comments Preg Qual [Se] (test code=BSHCG) Negative Negative CBC with [id number] 06:24:00 Test Item Value Reference Range Comments [...] Lymph Abs (test code=ALYMPH) 1.6 K/cumm 0.5-4.6 [place] Abs (test code=AMONO) 0.4 K/cumm 0.0-1.2 Eos Abs (test code=AEOS) 0.18 K/cumm 0.00-0.74 Baso Abs (test code=ABASO) 0.0 K/cumm 0.00-0.21 XR CHEST 1 [id number] 16:29:55XR CHEST 1 VIEWLOCATION: [id number]: None.INDICATION: REVIEW PICC LINE PLACEMENTDISCUSSION:AP chest and [...] TSH (test code=TSH) 3.44 mIU/mL 0.270-4.200 Lipid [id number] 05:47:00 Test Item Value Reference Range Comments [...] 5-40 LDL/HDL (test code=LDLPHDL) 3 Basic Metabolic [id number] 05:47:00 Test Item Value Reference Range Comments [...] by the National Kidney Foundation,http://nkdep.nih .gov Magnesium, [id number] 05:47:00 Test Item Value Reference Range Comments Magnesium (test code=MG) 2.3 mg/dL 1.7-2.5 CBC with [id number] 05:36:00 Test Item Value Reference Range Comments [...] Lymph Abs (test code=ALYMPH) 2.2 K/cumm 0.5-4.6 [place] Abs (test code=AMONO) 0.3 K/cumm 0.0-1.2 Eos Abs (test code=AEOS) 0.24 K/cumm 0.00-0.74 Baso Abs (test code=ABASO) 0.0 K/cumm 0.00-0.21 Partial Thromboplastin [id number] 21:26:00 Test Item Value Reference Range Comments aPTT (test code=PTT) 29.00 seconds 24.39-37.25 Prothrombin [id number] 21:26:00 Test Item Value Reference Range Comments PT (test code=PT) 10.70 seconds 9.78-13.35 INR (test code=INR) 0.95 Ratio 0.6-1.2 Comprehensive Metabolic [id number] 21:23:00 Test Item Value Reference Range Comments [...] the National Kidney Foundation,http://nkdep.nih .gov CBC with [id number] 21:16:00 Test Item Value Reference Range Comments [...] Lymph Abs (test code=ALYMPH) 2.2 K/cumm 0.5-4.6 [place] Abs (test code=AMONO) 0.4 K/cumm 0.0-1.2 Eos Abs (test code=AEOS) 0.17 K/cumm 0.00-0.74 Baso Abs (test code=ABASO) 0.1 K/cumm 0.00-0.21
--- NOTE | 2019-04-17 00:48 | EDPHYS ---
Physician Documentation [facility] Name: Jenni Rivera Age: 38 yrs Sex: Female : 1980 Arrival Date: 04/16/2019 Time: 22:00 Bed 26 Private MD: ED Physician Bobby Sheriff HPI: 04/16 23:05 This 38 yrs old Female presents to ER via Ambulatory with complaints of Sore cp Throat, Cough. 23:05 The patient presents with sore throat. cp 23:05 Onset: The symptoms/episode began/occurred 1 week(s) ago. cp 23:05 Associated signs and symptoms: Pertinent positives: cough times 1 month. Patient cp reports she was seen by PCP for cough who prescribed antibiotic that she finished. 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: 22:16 LMP N/A - Hysterectomy ak1 Historical: - Allergies: 22:20 Adhesives; ak1 22:20 Aspirin; ak1 22:20 Bactrim; ak1 22:20 Benadryl; ak1 22:20 Ciprofloxacin; ak1 22:20 Clindamycin; ak1 22:20 Codeine; ak1 22:20 Detrol; ak1 22:20 Iodine; ak1 22:20 GABAPENTIN; ak1 22:20 Latex, Natural Rubber; ak1 22:20 PENICILLINS; ak1 22:20 Seroquel; ak1 22:20 Morphine; ak1 22:20 Sulfa (Sulfonamide Antibiotics); ak1 22:20 tramadol; ak1 - Home Meds: 22:20 Abilify 10 mg Oral tab 1 tab once daily [Active]; Abilify 5 mg Oral tab 1 tab nightly ak1 [Active]; albuterol sulfate 1.25 mg/3 mL Inhl nebu 3 mL 3 times per day [Active]; apixaban 5 mg BID Oral [Active]; atorvastatin 10 mg Oral tab 1 tab once daily [Active]; Breo Ellipta 100-25 mcg/dose inhalation dsdv 1 puff once daily [Active]; benztropine 1 mg Oral tab 1 tab 2 times per day [Active]; buspirone 15 mg Oral tab 1 tab 2 times per day [Active]; Daliresp 500 mcg Oral tab 1 tab once daily [Active]; Coreg 25 mg Oral tab 1 tab 2 times per day [Active]; digoxin 125 mcg Oral tab 1 tab once daily [Active]; Eliquis 5 mg Oral tab once a day [Active]; esomeprazole magnesium 40 mg Oral cpDR 1 cap once daily [Active]; Keppra 1,000 mg Oral tab 1 tab every 12 hours [Active]; ketorolac 10 mg Oral tab 1 tab every 6 hours [Active]; levothyroxine 150 mcg tab 1 tab once daily [Active]; methocarbamol 500 mg Oral tab 1 tabs 4 times per day [Active]; loratadine 10 mg Oral tab 1 tab once daily [Active]; Ranexa 500 mg Oral Tb12 1 tab 2 times per day [Active]; Topamax 100 mg Oral tab 2 tabs 2 times per day [Active]; Spiriva with HandiHaler 18 mcg inhalation CpDv 1 cap once daily [Active]; venlafaxine 150 mg Oral cp24 1 cap once daily [Active]; Xanax 0.25 mg Oral tab 1 tab PRN [Active]; - PMHx: 22:20 Anemia; Asthma; Anxiety; Back pain; dvt to left leg; Hypertension; HYPOGLYCEMIA; ak1 Hypothyroidism; Kidney stones; mitral valve prolapse; Myocardial infarction; neuropathy; Seizures; Pacemaker; sick sinus syndrome; TIA; Upper Resp Infection; internal heart monitor; Bronchitis; - PSHx: 22:21 Hysterectomy; ak1 - Immunization history:: Adult Immunizations unknown. - Social history:: Smoking status: Patient/guardian denies using tobacco. - Ebola Screening: : No symptoms or risks identified at this time. ROS: 23:10 Constitutional: Negative for body aches, chills, fever, poor PO intake. cp 23:10 Eyes: Negative for injury, pain, redness, and discharge. cp 23:10 ENT: Positive for hoarseness, sore throat, Negative for drainage from ear(s), ear pain. cp 23:10 Cardiovascular: Negative for chest pain, edema, palpitations. 23:10 Respiratory: Positive for cough, "sounds productive", Negative for shortness of breath, wheezing. 23:10 Abdomen/GI: Negative for abdominal pain, nausea, vomiting, and diarrhea. 23:10 Back: Negative for radiated pain. 23:10 Neuro: Negative for headache, weakness. 23:10 All other systems are negative. Exam: 23:15 Constitutional: The patient appears in no acute distress, alert, awake, non-toxic, well cp developed, well nourished. 23:15 Head/Face: Normocephalic, atraumatic. cp 23:15 Eyes: Periorbital structures: appear normal, Conjunctiva: normal, no exudate, no cp injection, Lids and lashes: appear normal, bilaterally. 23:15 ENT: External ear(s): are unremarkable, Ear canal(s): are normal, clear, TM's: bulging, cp is not appreciated, bilaterally, dullness, bilaterally, erythema, is not appreciated, bilaterally, Nose: is normal, Mouth: Lips: moist, Oral mucosa: pink and intact, moist, Posterior pharynx: Airway: no evidence of obstruction, patent, Tonsils: are normal in appearance, Uvula: midline, swelling, is not appreciated, erythema, that is mild. 23:15 Chest/axilla: Inspection: normal, Palpation: is normal, no crepitus, no tenderness. 23:15 Cardiovascular: Rate: normal, Rhythm: regular. 23:15 Respiratory: the patient does not display signs of respiratory distress, Respirations: normal, no use of accessory muscles, no retractions, no splinting, no tachypnea, labored breathing, is not present. 23:15 Abdomen/GI: Inspection: abdomen appears normal, Palpation: abdomen is soft and non-tender, in all quadrants, voluntary guarding, is not appreciated, involuntary guarding, is not appreciated. 23:15 Back: pain, is absent, ROM is normal. 23:15 Skin: no rash present. Vital Signs: 22:16 BP 143 / 97; Pulse 97; Resp 16; Temp 97.; Pulse Ox 100% on R/A; Weight 52.16 kg (R); ak1 Height 4 ft. 10 in. (147.32 cm); Pain 9/10; 23:30 BP 140 / 70; Pulse 90; Resp 17; Temp 98.5; Pulse Ox 100% on R/A; Pain 0/10; mg2 22:16 Body Mass Index 24.03 (52.16 kg, 147.32 cm) ak1 MDM: 23:06 Patient medically screened. cp 04/17 00:45 Data reviewed: vital signs, nurses notes, lab test result(s), radiologic studies, plain cp films. 00:45 Test interpretation: by ED physician or midlevel provider: plain radiologic studies, cp chest xray negative for infiltrates. 04/16 22:21 Order name: Strep; Complete Time: 23:49 ak1 04/16 23:48 Interpretation: Reviewed. cp 04/16 23:25 Order name: Throat Culture EDPR 04/16 22:21 Order name: XRAY Chest Pa And Lat (2 Views) ak1 Administered Medications: 00:55 Drug: Tessalon Perle 100 mg Route: PO; mg2 00:55 Follow up: Response: No adverse reaction; Medication administered at discharge. mg2 Disposition: 06:11 Co-signature as Attending Physician, Bobby Sheriff MD I agree with the assessment and tw4 plan of care. Disposition: 04/17/19 00:46 Discharged to Home. Impression: Cough. - Condition is Stable. - Discharge Instructions: Cough, Adult. - Prescriptions for Tessalon Perles 100 mg Oral Capsule - take 1 capsule by ORAL route every 8 hours As needed; 20 capsule. Albuterol Sulfate 2.5 mg /3 mL (0.083 %) Inhalation Solution for Nebulization - inhale 1 unit by NEBULIZATION route every 8 hours As needed; 1 box. Prednisone 20 mg Oral Tablet - take 2 tablet by ORAL route once daily for 5 days; 10 tablet. - Medication Reconciliation Form, Thank You Letter, Antibiotic Education, Prescription Opioid Use form. - Follow up: Private Physician; When: 2 - 3 days; Reason: Worsening of condition. - Problem is new. - Symptoms have improved. Signatures: Dispatcher [employer] [facility] Kate Spencer RN RN ak1 Caio Briones PA PA cp Bobby Sheriff MD MD tw4 Martin Castro RN RN mg2 Corrections: (The following items were deleted from the chart) 00:57 00:46 04/17/2019 00:46 Discharged to Home. Impression: Cough. Condition is Stable. mg2 Forms are Medication Reconciliation Form, Thank You Letter, Antibiotic Education, Prescription Opioid Use. Follow up: Private Physician; When: 2 - 3 days; Reason: Worsening of condition. Problem is new. Symptoms have improved. cp 03:21 04/16 22:55 This 38 yrs old Female presents to ER via Ambulatory with cp complaints of Sore Throat, Cough. cp
--- NOTE | 2019-04-17 00:48 | ER ---
Nurse's Notes [facility] Name: Jenni Rivera Age: 38 yrs Sex: Female : 1980 Arrival Date: 04/16/2019 Time: 22:00 Bed 26 Private MD: Diagnosis: Cough Presentation: 04/16 22:17 Presenting complaint: Patient states: productive cough X1 month. pt c/o throat pain X1 ak1 week. pt took antibiotics continues to c/o pain. Transition of care: patient was not received from another setting of care. Onset of symptoms is unknown. Risk Assessment: Do you want to hurt yourself or someone else? Patient reports no desire to harm self or others. Initial Sepsis Screen: Does the patient meet any 2 criteria? No. Patient's initial sepsis screen is negative. Does the patient have a suspected source of infection? No. Patient's initial sepsis screen is negative. Care prior to arrival: None. 22:17 Method Of Arrival: Ambulatory ak1 22:17 Acuity: LYUBOV 4 ak1 Triage Assessment: 22:20 General: Appears in no apparent distress. Behavior is calm, cooperative. ak1 22:23 Pain: Complains of pain in throat. EENT: Throat is reddened. Neuro: No deficits noted. ak1 Cardiovascular: No deficits noted. Respiratory: No deficits noted. GI: No signs and/or symptoms were reported involving the gastrointestinal system. : No signs and/or symptoms were reported regarding the genitourinary system. Derm: No signs and/or symptoms reported regarding the dermatologic system. Musculoskeletal: No signs and/or symptoms reported regarding the musculoskeletal system. SKATESMAN: 22:16 LMP N/A - Hysterectomy ak1 Historical: - Allergies: 22:20 Adhesives; ak1 22:20 Aspirin; ak1 22:20 Bactrim; ak1 22:20 Benadryl; ak1 22:20 Ciprofloxacin; ak1 22:20 Clindamycin; ak1 22:20 Codeine; ak1 22:20 Detrol; ak1 22:20 Iodine; ak1 22:20 GABAPENTIN; ak1 22:20 Latex, Natural Rubber; ak1 22:20 PENICILLINS; ak1 22:20 Seroquel; ak1 22:20 Morphine; ak1 22:20 Sulfa (Sulfonamide Antibiotics); ak1 22:20 tramadol; ak1 - Home Meds: 22:20 Abilify 10 mg Oral tab 1 tab once daily [Active]; Abilify 5 mg Oral tab 1 tab nightly ak1 [Active]; albuterol sulfate 1.25 mg/3 mL Inhl nebu 3 mL 3 times per day [Active]; apixaban 5 mg BID Oral [Active]; atorvastatin 10 mg Oral tab 1 tab once daily [Active]; Breo Ellipta 100-25 mcg/dose inhalation dsdv 1 puff once daily [Active]; benztropine 1 mg Oral tab 1 tab 2 times per day [Active]; buspirone 15 mg Oral tab 1 tab 2 times per day [Active]; Daliresp 500 mcg Oral tab 1 tab once daily [Active]; Coreg 25 mg Oral tab 1 tab 2 times per day [Active]; digoxin 125 mcg Oral tab 1 tab once daily [Active]; Eliquis 5 mg Oral tab once a day [Active]; esomeprazole magnesium 40 mg Oral cpDR 1 cap once daily [Active]; Keppra 1,000 mg Oral tab 1 tab every 12 hours [Active]; ketorolac 10 mg Oral tab 1 tab every 6 hours [Active]; levothyroxine 150 mcg tab 1 tab once daily [Active]; methocarbamol 500 mg Oral tab 1 tabs 4 times per day [Active]; loratadine 10 mg Oral tab 1 tab once daily [Active]; Ranexa 500 mg Oral Tb12 1 tab 2 times per day [Active]; Topamax 100 mg Oral tab 2 tabs 2 times per day [Active]; Spiriva with HandiHaler 18 mcg inhalation CpDv 1 cap once daily [Active]; venlafaxine 150 mg Oral cp24 1 cap once daily [Active]; Xanax 0.25 mg Oral tab 1 tab PRN [Active]; - PMHx: 22:20 Anemia; Asthma; Anxiety; Back pain; dvt to left leg; Hypertension; HYPOGLYCEMIA; ak1 Hypothyroidism; Kidney stones; mitral valve prolapse; Myocardial infarction; neuropathy; Seizures; Pacemaker; sick sinus syndrome; TIA; Upper Resp Infection; internal heart monitor; Bronchitis; - PSHx: 22:21 Hysterectomy; ak1 - Immunization history:: Adult Immunizations unknown. - Social history:: Smoking status: Patient/guardian denies using tobacco. - Ebola Screening: : No symptoms or risks identified at this time. Screenin:23 Abuse screen: Denies threats or abuse. Denies injuries from another. Nutritional ak1 screening: No deficits noted. Tuberculosis screening: No symptoms or risk factors identified. Fall Risk None identified. Assessment: 22:25 Respiratory: Airway is patent Respiratory effort is even, unlabored. ak1 04/17 00:42 General: Appears in no apparent distress. comfortable, Behavior is calm, cooperative. mg2 Pain: Complains of pain in throat Pain does not radiate. Pain currently is 5 out of 10 on a pain scale. Quality of pain is described as aching, Pain began gradually, Is intermittent. Neuro: Level of Consciousness is awake, alert, obeys commands, Oriented to person, place, time, situation. Cardiovascular: Capillary refill < 3 seconds Patient's skin is warm and dry. Respiratory: Breath sounds are clear bilaterally. in mediastinum, right upper lobe and left upper lobe. GI: No signs and/or symptoms were reported involving the gastrointestinal system. : No signs and/or symptoms were reported regarding the genitourinary system. EENT: Reports sore throat. Derm: Skin is intact, is healthy with good turgor, Skin is pink, warm \T\ dry. normal. Musculoskeletal: Circulation, motion, and sensation intact. Capillary refill < 3 seconds. Vital Signs: 04/16 22:16 BP 143 / 97; Pulse 97; Resp 16; Temp 97.; Pulse Ox 100% on R/A; Weight 52.16 kg (R); ak1 Height 4 ft. 10 in. (147.32 cm); Pain 9/10; 23:30 BP 140 / 70; Pulse 90; Resp 17; Temp 98.5; Pulse Ox 100% on R/A; Pain 0/10; mg2 22:16 Body Mass Index 24.03 (52.16 kg, 147.32 cm) ak1 ED Course: 22:00 Patient arrived in ED. ds1 22:16 Arm band placed on Patient placed in waiting room, Patient notified of wait time. ak1 22:18 Triage completed. ak1 22:24 Patient has correct armband on for positive identification. ak1 23:05 Caio Briones PA is PHCP. cp 23:05 Bobby Sheriff MD is Attending Physician. cp 23:21 Martin Castro, RN is Primary Nurse. mg2 04/17 00:32 X-ray completed. Patient tolerated procedure well. kw 00:36 XRAY Chest Pa And Lat (2 Views) In Process Unspecified. EDMS 00:44 No provider procedures requiring assistance completed. Patient did not have IV access mg2 during this emergency room visit. Administered Medications: 00:55 Drug: Tessalon Perle 100 mg Route: PO; mg2 00:55 Follow up: Response: No adverse reaction; Medication administered at discharge. mg2 Outcome: 00:46 Discharge ordered by MD. cp 00:56 Discharged to home ambulatory, with family. mg2 00:56 Condition: stable 00:56 Discharge instructions given to patient, family, Instructed on discharge instructions, follow up and referral plans. medication usage, Demonstrated understanding of instructions, follow-up care, medications, Prescriptions given X 2. 00:57 Patient left the ED. mg2 Signatures: Dispatcher [employer] EDGA Jorge Ninoska ds1 Bea Mederos Amber, RN RN ak1 Caio Briones, APOLLO PA cp Martin Castro, RN RN mg2
[2019-04-17] MEDS ORDERED: BENZONATATE 100 MG CAP PO ONE (01:10)
[2019-04-17 02:09] VITALS: BP 140/70; TEMP 98.5; O2SAT 100
--- NOTE | 2019-04-17 08:40 | RAD REPORT ---
EXAM DESCRIPTION: RAD - Chest Pa And Lat (2 Views) - 04/17/2019 12:35 am CLINICAL HISTORY: Persistent cough, anemia, asthma COMPARISON: March 03, 2019 TECHNIQUE: PA and lateral views of the chest were obtained. FINDINGS: The lungs are underinflated. No focal mass or consolidation. Low lung volume accentuates t he interstitial pattern. This could potentially mask early stages of an interstitial edema, infiltrat e or reactive airway changes. Heart size is normal and central vasculature is within normal limits. No pleural effusion or pneumothorax seen. No acute bony finding noted. No aortic abnormality. IMPRESSION: No focal lung parenchymal process. Lung volumes are low. Low lung volume accentuates interstitial pattern potentially masking early interstitial edema, infilt rate or reactive airway changes.
== END 2019-04-17 00:57 | disposition home or self-care (01) ==
LOC: ER 21:58
DX: R05 Cough (principal); D64.9 Anemia, unspecified; I10 Essential (primary) hypertension; E03.9 Hypothyroidism, unspecified; I25.2 Old myocardial infarction; F41.9 Anxiety disorder, unspecified; Z86.73 Personal history of transient ischemic attack (TIA), and cerebral infarction without residual deficits; Z88.5 Allergy status to narcotic agent; Z88.0 Allergy status to penicillin; Z88.2 Allergy status to sulfonamides; Z88.8 Allergy status to other drugs, medicaments and biological substances; Z88.6 Allergy status to analgesic agent; Z88.1 Allergy status to other antibiotic agents; Z91.040 Latex allergy status; Z79.01 Long term (current) use of anticoagulants; Z79.899 Other long term (current) drug therapy
CPT/HCPCS: 71046; 87070; 87081; 99283

== ENCOUNTER 2019-06-10 16:50 | Emergency (ER) | payer MEDICAID ==
--- OUTSIDE RECORDS SUMMARY | 2019-06-10 17:03 | XMS REPORT | Clinical Summary ---
:1980 Author Organization [facility] Address [address] [place] [address] Care Team Providers Name Role Phone Diya [...] Antonio Gray MD Arif, Sahar, MD after 06/09/2018 Social History Tobacco Use Types Packs/Day Years [...] Taken Blood Pressure 90/57 08/21/2018 12:05 PM LINEN AIDE Pulse 94 08/21/2018 12:05 PM LINEN AIDE Temperature 37 C (98.6 F) 08/21/2018 12:05 PM LINEN AIDE Respiratory Rate 17 08/21/2018 12:05 PM LINEN AIDE Oxygen Saturation 99% 08/21/2018 12:05 PM LINEN AIDE Inhaled Oxygen Concentration 21% 08/19/2018 3:10 AM LINEN AIDE Weight 49.9 kg (110 lb) 08/18/2018 12:00 PM LINEN AIDE Height 151.1 cm (4' 11.5") 08/18/2018 12:00 PM LINEN AIDE Body Mass Index 21.85 08/18/2018 12:00 PM LINEN AIDE Plan of Treatment Not on file Procedures Procedure Name Priority Date/Time Associated Comments Diagnosis ARRYTHMIA IMPLANT 11/12/2018 1:43 REPORT - SCAN PM LINEN AIDE ARRYTHMIA IMPLANT 11/12/2018 1:43 REPORT - SCAN PM LINEN AIDE ARRYTHMIA IMPLANT 11/12/2018 1:43 REPORT - SCAN PM LINEN AIDE RHYTHM STRIP - SCAN 08/22/2018 11:10 AM LINEN AIDE POCT-GLUCOSE METER Routine 08/21/2018 10:17 Results for this AM LINEN AIDE procedure are in the results section. MR BRAIN WITHOUT IV Routine 08/21/2018 9:20 Results for this CONTRAST AM LINEN AIDE procedure are in the results section. MR MRA NECK WITHOUT IV Routine 08/21/2018 9:20 Results for this CONTRAST AM LINEN AIDE procedure are in the results section. MR MRA HEAD WITHOUT Routine 08/21/2018 9:20 Results for this CONTRAST AM LINEN AIDE procedure are in the results section. POCT-GLUCOSE METER Routine 08/20/2018 9:22 Results for this PM LINEN AIDE procedure are in the results section. POCT-GLUCOSE METER Routine 08/20/2018 5:54 Results for this PM LINEN AIDE procedure are in the results section. POCT-GLUCOSE METER Routine 08/20/2018 12:34 Results for this PM LINEN AIDE procedure are in the results section. XR CHEST 1 VIEW STAT 08/20/2018 11:52 Results for this PORTABLE/BEDSIDE AM LINEN AIDE procedure are in the results section. POCT-GLUCOSE METER Routine 08/20/2018 9:00 Results for this AM LINEN AIDE procedure are in the results section. BASIC METABOLIC PANEL Routine 08/20/2018 6:03 Results for this (7) AM LINEN AIDE procedure are in the results section. POCT-GLUCOSE METER Routine 08/19/2018 9:00 Results for this PM LINEN AIDE procedure are in the results section. POCT-GLUCOSE METER Routine 08/19/2018 4:57 Results for this PM LINEN AIDE procedure are in the results section. ECHOCARDIOGRAM REPORT - 08/19/2018 4:20 SCAN PM LINEN AIDE VITAMIN B12 AND FOLATE Routine 08/19/2018 4:44 Results for this AM LINEN AIDE procedure are in the results section. BASIC METABOLIC PANEL Routine 08/19/2018 4:44 Results for this (7) AM LINEN AIDE procedure are in the results section. 2D ECHO W/ DOPPLER Routine 08/18/2018 5:34 Results for this (CW/PW/COLOR) PM LINEN AIDE procedure are in the results section. RPR Routine 08/18/2018 3:44 Results for this AM LINEN AIDE procedure are in the results section. TSH/FREE T4 IF Routine 08/18/2018 3:44 Results for this INDICATED AM LINEN AIDE procedure are in the results section. CBC (HEMOGRAM ONLY) Routine 08/18/2018 3:44 Results for this AM LINEN AIDE procedure are in the results section. LIPID PANEL Routine 08/18/2018 3:44 Results for this AM LINEN AIDE procedure are in the results section. HEPATIC FUNCTION PANEL Routine 08/18/2018 3:44 Results for this AM LINEN AIDE procedure are in the results section. HEMOGLOBIN A1C Routine 08/18/2018 3:44 Results for this AM LINEN AIDE procedure are in the results section. BASIC METABOLIC PANEL Routine 08/18/2018 3:44 Results for this (7) AM LINEN AIDE procedure are in the results section. after 06/09/2018 Results ARRYTHMIA IMPLANT REPORT - SCAN (11/12/2018 1:43 PM LINEN AIDE)Only the most recent of3 resultswithin the time period is included. Narrative Performed At RHYTHM STRIP - SCAN (08/22/2018 11:10 AM LINEN AIDE) Narrative Performed At POC-Glucose meter (08/21/2018 10:17 AM LINEN AIDE)Only the most recent of7 resultswithin the time period is included. POC-Glucose Meter 102Comment: TESTED AT 70 - 110 mg/dL [facility] [address] [facility] [id number] Specimen Blood Performing Organization Address City/State/Zipcode Phone Number [address] [address] CENTER MR brain without IV contrast (08/21/2018 9:20 AM LINEN AIDE) Specimen Narrative Performed At FINAL REPORT [place] [...] MD Report Verified Date/Time:08/21/2018 09:25:25 Reading Location: [address] Neuro Reading Room Procedure Note Interface, External Ris In - 08/21/2018 9:49 AM LINEN AIDE FINAL REPORT MRI Brain without contrast Clinical [...] Report Verified Date/Time: 08/21/2018 09:25:25 Reading Location: [address] Neuro Reading Room Performing Organization Address City/State/Zipcode Phone Number [employer] MRA neck without IV contrast (08/21/2018 9:20 AM LINEN AIDE) Specimen Narrative Performed At FINAL REPORT [employer] MRA Head CLINICAL HISTORY: Ischemic Stroke TECHNIQUE: MRA of the head utilizing 3-D lbkk-br-onillr technique, with 3-D reconstructions. COMPARISON: None FINDINGS: There is no evidence of intracranial aneurysm, focal stenosis, or major branch vessel occlusion. IMPRESSION: No evidence for a major [place] proximal branch vessel occlusion. MRA Neck CLINICAL HISTORY: Ischemic Stroke TECHNIQUE: MRA of the neck utilizing 2-D and 3-D gagu-st-oshxyw technique, with 3-D reconstructions. COMPARISON: None FINDINGS: The carotid arteries in the neck are patent including their bifurcations. There is antegrade flow in the vertebral arteries in the neck. IMPRESSION: No evidence of hemodynamically significant stenosis in the cervical carotid or vertebral arteries by NASCET criteria. Signed: Santos Winn MD Report Verified Date/Time:08/21/2018 09:32:09 Reading Location: [address] Neuro Reading Room Procedure Note Interface, External [facility] In - 08/21/2018 9:48 AM LINEN AIDE FINAL REPORT MRA Head CLINICAL HISTORY: Ischemic Stroke TECHNIQUE: MRA of the head utilizing 3-D ljln-le-gxprmy technique, with 3-D reconstructions. COMPARISON: None FINDINGS: There is no evidence of intracranial aneurysm, focal stenosis, or major branch vessel occlusion. IMPRESSION: No evidence for a major [place] proximal branch vessel occlusion. MRA Neck CLINICAL HISTORY: Ischemic Stroke TECHNIQUE: MRA of the neck utilizing 2-D and 3-D grdg-wv-kynbir technique, with 3-D reconstructions. COMPARISON: None FINDINGS: The carotid arteries in the neck are patent including their bifurcations. There is antegrade flow in the vertebral arteries in the neck. IMPRESSION: No evidence of hemodynamically significant stenosis in the cervical carotid or vertebral arteries by NASCET criteria. Signed: Santos Winn MD Report Verified Date/Time: 08/21/2018 09:32:09 Reading Location: [address] Neuro Reading Room Performing Organization Address City/State/Zipcode Phone Number [employer] MRA head without IV contrast (08/21/2018 9:20 AM LINEN AIDE) Specimen Narrative Performed At FINAL REPORT [employer] MRA Head CLINICAL HISTORY: Ischemic Stroke TECHNIQUE: MRA of the head utilizing 3-D hddk-lk-oyvoip technique, with 3-D reconstructions. COMPARISON: None FINDINGS: There is no evidence of intracranial aneurysm, focal stenosis, or major branch vessel occlusion. IMPRESSION: No evidence for a major [place] proximal branch vessel occlusion. MRA Neck CLINICAL HISTORY: Ischemic Stroke TECHNIQUE: MRA of the neck utilizing 2-D and 3-D ydtj-hi-uqfutf technique, with 3-D reconstructions. COMPARISON: None FINDINGS: The carotid arteries in the neck are patent including their bifurcations. There is antegrade flow in the vertebral arteries in the neck. IMPRESSION: No evidence of hemodynamically significant stenosis in the cervical carotid or vertebral arteries by NASCET criteria. Signed: Santos Winn MD Report Verified Date/Time:08/21/2018 09:32:09 Reading Location: [facility] Neuro Reading Room Procedure Note Interface, External [facility] In - 08/21/2018 9:48 AM LINEN AIDE FINAL REPORT MRA Head CLINICAL HISTORY: Ischemic Stroke TECHNIQUE: MRA of the head utilizing 3-D neyk-jx-lefgak technique, with 3-D reconstructions. COMPARISON: None FINDINGS: There is no evidence of intracranial aneurysm, focal stenosis, or major branch vessel occlusion. IMPRESSION: No evidence for a major [place] proximal branch vessel occlusion. MRA Neck CLINICAL HISTORY: Ischemic Stroke TECHNIQUE: MRA of the neck utilizing 2-D and 3-D veme-bj-cxwuld technique, with 3-D reconstructions. COMPARISON: None FINDINGS: The carotid arteries in the neck are patent including their bifurcations. There is antegrade flow in the vertebral arteries in the neck. IMPRESSION: No evidence of hemodynamically significant stenosis in the cervical carotid or vertebral arteries by NASCET criteria. Signed: Santos Winn MD Report Verified Date/Time: 08/21/2018 09:32:09 Reading Location: [facility] [id number] Neuro Reading Room Performing Organization Address City/State/Zipcode Phone Number [employer] XR chest 1 view portable / bedside (08/20/2018 11:52 AM LINEN AIDE) Specimen Narrative Performed At FINAL REPORT [employer] RAD, CHEST, 1 VIEW, NON DEPT INDICATION: [...] MD Report Verified Date/Time:08/20/2018 12:04:06 Reading Location: [facility] Radiology Reading Room Procedure Note Interface, External Ris In - 08/20/2018 12:53 PM LINEN AIDE FINAL REPORT RAD, CHEST, 1 VIEW, NON [...] Report Verified Date/Time: 08/20/2018 12:04:06 Reading Location: [facility] Radiology Reading Room Performing Organization Address City/[facility]/Zipcode Phone Number RIS Basic metabolic panel (08/20/2018 6:03 AM LINEN AIDE)Only the most recent of3 resultswithin the time period is included. Sodium 140 136 - 145 meq/L [facility] Potassium 4.0 3.5 - 5.1 meq/L [facility] Chloride 108 (H) 98 - 107 meq/L [facility] CO2 25 22 - 29 meq/L [facility] BUN 11 7 - 21 mg/dL [facility] Creatinine 0.69 0.57 - 1.25 mg/dL [facility] Glucose 94 70 - 105 mg/dL [facility] Calcium 9.5 8.4 - 10.2 mg/dL [facility] EGFR 96Comment: ESTIMATED GFR IS mL/min/1.73 sq m [facility] NOT ACCURATE [facility] CLEARANCE IN PREDICTING GLOMERULAR FILTRATION RATE. ESTIMATED GFR IS NOT APPLICABLE FOR DIALYSIS PATIENTS. Specimen Blood Performing Organization Address [facility] Cent[facility] Phone Number [address] [address] CENTER ECHOCARDIOGRAM REPORT - SCAN (08/19/2018 4:20 PM LINEN AIDE) Narrative Performed At Vitamin B12 and Folate (08/19/2018 4:44 AM LINEN AIDE) Vitamin B12 524 213 - 816 pg/mL [facility] Folate 13.5 >=7.0 ng/mL [facility] Specimen Blood Performing Organization Address City/[facility]/Zipcode Phone Number [place] [phone] [place] [address] CENTER 2D Echo W/Doppler(CW/PW/Color) (08/18/2018 5:34 PM LINEN AIDE) Ejection 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 Rocío Koenig [facility] JametIPhysician CHAVA Lopez Procedure Type of Study [...] External Ris In - 08/19/2018 3:36 PM LINEN AIDE Transthoracic Echocardiography Report (TTE) Demographics Patient Name HARSH JENNI Date of Study 08/18/2018 SALMA Gender Female Visit Number [id number] Race Unknown Room Number 2443 Number Date of 1980 Referring Physician Antonio CHAUDHARI Age 38 year(s) 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 Rocío Koenig [employer] Prakash Jo Interpreting Gerhard Brennan Physician Procedure [...] TR Gradient: 16.82 mmHg Performing Organization Address City/[facility] Cent[facility]ode Phone Number [facility] ECHO HEARTLAB MKCKESSON CPACS TSH/Free T4 If Indicated (08/18/2018 3:44 AM LINEN AIDE) TSH 3.18 0.35 - 4.94 uIU/mL [facility] Specimen Blood Performing Organization Address City/[facility] Cent[facility]ode Phone Number [address] [address] [place] RPR (08/18/2018 3:44 AM LINEN AIDE) RPR Nonreactive Nonreactive [facility] Specimen Blood Performing Organization Address [facility] Centercode Phone Number [address] [address] [place] CBC (Hemogram only) (08/18/2018 3:44 AM LINEN AIDE) WBC 5.7 3.5 - 10.5 K/L [facility] RBC 4.44 3.93 - 5.22 M/L [facility] Hemoglobin 12.9 11.2 - 15.7 GM/DL [facility] Hematocrit 39.8 34.1 - 44.9 % [facility] MCV 89.6 79.4 - 94.8 fL [facility] MCH 29.1 25.6 - 32.2 pg [facility] MCHC 32.4 32.2 - 35.5 GM/DL [facility] RDW 12.6 11.7 - 14.4 % [facility] Platelets 210 150 - 450 K/CU MM [facility] MPV 10.3 9.4 - 12.3 fL [facility] nRBC 0 0 - 0 /100 WBC [facility] Specimen Blood Performing Organization Address City/State/Zipcode Phone Number [address] [address] [phone] CENTER Hemoglobin A1c (08/18/2018 3:44 AM LINEN AIDE) Hemoglobin A1C 5.3 4.3 - 6.1 % [facility] Specimen Blood Performing Organization Address City/[facility]/Zipcode Phone Number [address] [address] CENTER Hepatic function panel (08/18/2018 3:44 AM LINEN AIDE) Protein, Total 6.9Comment: Specimen 6.0 - 8.3 gm/dL [facility] slightly hemolyzed [facility] Albumin 3.8Comment: Specimen 3.5 - 5.0 g/dL [facility] slightly hemolyzed [facility] Total Bilirubin 0.3Comment: Specimen 0.2 - 1.2 mg/dL [facility] hemolyzed [facility] Bilirubin, Direct 0.1Comment: Specimen 0.1 - 0.5 mg/dL [facility] hemolyzed [facility] Alkaline Phosphatase 95 40 - 150 U/L [facility] AST 20Comment: Specimen 5 - 34 U/L [facility] hemolyzed [facility] ALT 13Comment: Specimen 6 - 55 U/L [facility] hemolyzed [facility] Specimen Blood Performing Organization Address [facility] Centercoor Phone Number [facility] [address] [place] [address] [place] Lipid panel (08/18/2018 3:44 AM LINEN AIDE) Triglycerides 121Comment: Specimen slightly mg/dL [facility] Cholesterol 172Comment: Specimen slightly mg/dL [facility] HDL 36 mg/dL [facility] LDL Calculated 112 mg/dL [facility] Specimen Blood Narrative Performed At Triglyceride Reference Range: [facility] Low Risk <150 [id number] High Risk 200-499 Very High Risk>=500 Cholesterol Reference Range: Low Risk <200 [id number] High Risk>240 HDL Cholesterol Reference Range: Low Risk >=60 High Risk <40 LDL Cholesterol Reference Range: Optimal<100 Near [id number] Very High >=190 Performing Organization Address City/State/Zipcode Phone Number [facility] [address] [place] [address] [place] after 06/09/2018 Insurance Payer Benefit Plan / Group Subscriber ID Type Phone Address [employer] MEDICAID [place] xxxxxxxxx Advance Directives For more information, please contact:[place] [address] [address] Jaret[address] [place], [place] [phone] Code Status Date Activated Date Inactivated Comments Full Code 08/17/2018 7:42 PM This code status was determined by: Patient
--- OUTSIDE RECORDS SUMMARY | 2019-06-10 17:03 | XMS REPORT | Clinical Summary ---
:1980 Author Organization [facility] Address [address] [place] [address] Care Team Providers Name Role Phone Unavailable [...] unspecified MD Fritz type (Primary Dx) after 06/09/2018 Social History Tobacco Use Types [...] Vital Signs Vital Sign Reading Time Taken Comments Blood Pressure 113/74 09/04/2018 5:48 PM [facility] Pulse 135 09/04/2018 5:48 PM [facility] Temperature 36.7 C (98 F) 09/04/2018 5:48 PM [facility] Respiratory Rate 18 09/04/2018 5:48 PM [facility] Oxygen Saturation 96% 09/04/2018 5:48 PM [facility] Inhaled Oxygen Concentration - - Weight - - Height 149.9 cm (4' 11") 09/04/2018 6:00 PM [facility] Body Mass Index - - Plan of Treatment Health Maintenance Due Date Last Done Comments CERVICAL CANCER SCREENING 2002 INFLUENZA VACCINE 04/25/2019 Procedures Procedure Name Priority Date/Time Associated Diagnosis Comments ECG 12-LEAD STAT 09/04/2018 6:02 PM Results for this [facility] procedure are in the results section. after 06/09/2018 Results ECG 12 lead (09/04/2018 6:02 PM [facility]) Ventricular rate 106 [facility] Atrial rate 106 [facility] TX interval 120 [facility] QRSD interval 86 [facility] QT interval 326 [facility] QTC interval 433 [facility] P axis 1 55 [facility] QRS axis 1 55 [facility] T wave axis 50 [facility] EKG impression Sinus [facility] tachycardia-Otherwise normal ECG-- Specimen Narrative Performed At Performing Organization Address City/State/Zipcode Phone Number [facility] MUSE [address] [place] [address] after 06/09/2018 Advance Directives For more information, please contact: [phone] Type Date Recorded Patient Software Database Architect Explanation Advance Directives, Living Will and Medical Power of Information Management Manager
--- OUTSIDE RECORDS SUMMARY | 2019-06-10 17:04 | XMS REPORT ---
:1980 Author Organization [facility] Address [address] [place] [address] Care Team Providers Name Role Phone MILTONTAMARA [...] Facility Department ID 2017-09-06 2017-09-08 [facility] [id number] 10:12:00 02:32:00 LYLY Results Test Description Test Time Test Comments Text Results Atomic Results Result Comments POCT-GLUCOSE METER 2018-08-21 10:22:00 Test Item Value Reference Range Comments POC-GLUCOSE METER (BEAKER) (test 102 mg/dL 70-110 TESTED AT [facility] [address] [facility] ouaq=[id number]) [facility] [id number] MR, MRA, BRAIN, WITHOUT [id number] 09:32:00Reason for exam:-> Ischemic Stroke EvaluationFINAL REPORT MRA Head CLINICAL HISTORY: Ischemic Stroke TECHNIQUE: MRA of the head utilizing 3-D time-of- flight technique, with 3-D reconstructions. COMPARISON: None FINDINGS: There is no evidence of intracranial aneurysm, focal stenosis, or major branch vessel occlusion. IMPRESSION: No evidence for a major [facility] [place] proximal branch vessel occlusion. MRA Neck CLINICAL HISTORY: Ischemic Stroke TECHNIQUE : MRA of the neck utilizing 2-D and 3-D oyhe-zd-cksxjk technique, with 3-D reconstructions. COMPARISON: None FINDINGS: The carotid arteries in the neck are patent including their bifurcations. There is antegrade flow in the vertebral arteries in the neck. IMPRESSION: No evidence of hemodynamically significant stenosis in the cervical carotid or vertebral arteries by NASCET criteria. Signed: Santos Neff MDReport Verified Date/Time: 08/21/2018 09:32: 09 Reading Location: [address] Neuro Reading Room MR, MRA, NECK, WITHOUT IV [id number] 09:32:00Reason for exam:->Ischemic Stroke EvaluationFINAL REPORT MRA Head CLINICAL HISTORY: Ischemic Stroke TECHNIQUE: MRA of the head utilizing 3-D iscq-lb-xkrqzh technique, with 3-D reconstructions. COMPARISON: None FINDINGS: There is no evidence of intracranial aneurysm, focal stenosis, or major branch vessel occlusion. IMPRESSION: No evidence for a major [facility] [place] proximal branch vessel occlusion. MRA Neck CLINICAL HISTORY: Ischemic Stroke TECHNIQUE: MRA of the neck utilizing 2-D and 3-D tcub-za-etkfor technique, with 3-D reconstructions. COMPARISON: None FINDINGS: The carotid arteries in the neck are patent including their bifurcations. There is antegrade flow in the vertebral arteries in the neck. IMPRESSION: No evidence of hemodynamically significant stenosis in the cervical carotid or vertebral arteries by NASCET criteria. Signed: Santos Neff MDRiman Verified Date/Time: 08/21/2018 09:32:09 Reading Location: [address] Neuro Reading Room MR, BRAIN, WITHOUT [id number] 09:25: 00Reason for exam:->Ischemic Stroke EvaluationFINAL REPORT [...] [facility] C[facility] Neuro Reading Room POCT-GLUCOSE [id number] 21:26:00 Test Item Value Reference Range Comments POC-GLUCOSE METER (BEAKER) 119 mg/dL 70-110 TESTED AT [address] (test xayh=2996) [facility] [id number] POCT-GLUCOSE [id number] 18:03:00 Test Item Value Reference Range Comments POC-GLUCOSE METER (BEAKER) 119 mg/dL 70-110 TESTED AT [address] (test xgfr=4526) [place] [id number] POCT-GLUCOSE [id number] 12:39:00 Test Item Value Reference Range Comments POC-GLUCOSE METER (BEAKER) 120 mg/dL 70-110 TESTED AT [address] (test yegy=2093) [facility] [address] RAD, CHEST, 1 VIEW, NON [id number] 12:04:00Reason for exam:->To Locate Heart Device (Pacemaker)Should [...] MDReport Verified Date/Time: 08/20/2018 12:04:06 [facility] POCT-GLUCOSE [id number] 09:17:00 Test Item Value Reference Range Comments POC-GLUCOSE METER (BEAKER) 121 mg/dL 70-110 TESTED AT [address] (test kxyk=9355) [facility] [address] BASIC METABOLIC [id number] 06:56:00 Test Item Value Reference Range Comments SODIUM (BEAKER) (test 140 meq/L 136-145 zunv=448) POTASSIUM (BEAKER) (test 4.0 meq/L 3.5-5.1 hwbb=264) CHLORIDE (BEAKER) (test 108 meq/L 98-107 hlqn=757) CO2 (BEAKER) (test 25 meq/L 22-29 drgb=064) BLOOD UREA NITROGEN 11 mg/dL 7-21 (BEAKER) (test dljh=886) CREATININE (BEAKER) (test 0.69 mg/dL 0.57-1.25 brzb=532) GLUCOSE RANDOM (BEAKER) 94 mg/dL 70-105 (test rqvu=040) CALCIUM (BEAKER) (test 9.5 mg/dL 8.4-10.2 uewk=462) EGFR (BEAKER) (test 96 mL/min/1.73 sq m ESTIMATED GFR IS NOT funh=0824) ACCURATE CREATININE CLEARANCE IN PREDICTING GLOMERULAR FILTRATION RATE. ESTIMATED GFR IS NOT APPLICABLE FOR DIALYSIS PATIENTS. POCT-GLUCOSE [id number] 21:09:00 Test Item Value Reference Range Comments POC-GLUCOSE METER (BEAKER) 109 mg/dL 70-110 TESTED AT [address] (test vjtb=9297) [place] [id number] POCT-GLUCOSE [id number] 17:15:00 Test Item Value Reference Range Comments POC-GLUCOSE METER (BEAKER) 117 mg/dL 70-110 TESTED AT [address] (test ehwe=9650) [place] [address] VITAMIN B12 AND [id number] 06:39:00 Test Item Value Reference Range Comments VITAMIN B12 (BEAKER) (test dlwz=278) 524 pg/mL 213-816 FOLATE (BEAKER) (test amup=365) 13.5 ng/mL >=7.0 BASIC METABOLIC [id number] 05:48:00 Test Item Value Reference Range Comments SODIUM (BEAKER) (test 139 meq/L 136-145 dptn=742) POTASSIUM (BEAKER) (test 4.0 meq/L 3.5-5.1 nqcq=226) CHLORIDE (BEAKER) (test 107 meq/L 98-107 qcpc=210) CO2 (BEAKER) (test 24 meq/L 22-29 qtpo=423) BLOOD UREA NITROGEN 11 mg/dL 7-21 (BEAKER) (test swzt=744) CREATININE (BEAKER) (test 0.72 mg/dL 0.57-1.25 qrdi=803) GLUCOSE RANDOM (BEAKER) 107 mg/dL 70-105 (test lcce=017) CALCIUM (BEAKER) (test 9.5 mg/dL 8.4-10.2 wogu=501) EGFR (BEAKER) (test 91 mL/min/1.73 sq m ESTIMATED GFR IS NOT xvzq=9380) ACCURATE CREATININE CLEARANCE IN PREDICTING GLOMERULAR FILTRATION RATE. ESTIMATED GFR IS NOT APPLICABLE FOR DIALYSIS PATIENTS. [id number] 15:42:00 Test Item Value Reference Range Comments RPR SCREEN (BEAKER) (test xafd=619) Nonreactive Nonreactive HEMOGLOBIN [id number] 09:14:00 Test Item Value Reference Range Comments HEMOGLOBIN A1C (BEAKER) (test hstg=362) 5.3 % 4.3-6.1 TSH/FREE T4 IF [id number] 04:49:00 Test Item Value Reference Range Comments THYROID STIMULATING HORMONE (BEAKER) (test 3.18 uIU/mL 0.35-4.94 klip=576) BASIC METABOLIC [id number] 04:38:00 Test Item Value Reference Range Comments SODIUM (BEAKER) (test 139 meq/L 136-145 paxp=967) POTASSIUM (BEAKER) (test 4.2 meq/L 3.5-5.1 Specimen slightly dlko=730) hemolyzed CHLORIDE (BEAKER) (test 107 meq/L 98-107 hsse=849) CO2 (BEAKER) (test 26 meq/L 22-29 csjl=262) BLOOD UREA NITROGEN 10 mg/dL 7-21 (BEAKER) (test hbee=245) CREATININE (BEAKER) (test 0.73 mg/dL 0.57-1.25 Specimen slightly gzej=511) hemolyzed GLUCOSE RANDOM (BEAKER) 104 mg/dL 70-105 (test nzjx=886) CALCIUM (BEAKER) (test 9.7 mg/dL 8.4-10.2 wfjl=781) EGFR (BEAKER) (test 90 mL/min/1.73 sq m ESTIMATED GFR IS NOT rppv=7831) ACCURATE CREATININE CLEARANCE IN PREDICTING GLOMERULAR FILTRATION RATE. ESTIMATED GFR IS NOT APPLICABLE FOR DIALYSIS PATIENTS. LIPID [id number] 04:38:00 Test Item Value Reference Range Comments TRIGLYCERIDES (BEAKER) (test 121 mg/dL Specimen slightly hemolyzed pumv=398) CHOLESTEROL (BEAKER) (test 172 mg/dL Specimen slightly hemolyzed qlcj=429) HDL CHOLESTEROL (BEAKER) (test 36 mg/dL xhgi=006) LDL CHOLESTEROL CALCULATED 112 mg/dL (BEAKER) (test bcye=946) Triglyceride Reference Range: Low Risk <150 Borderline 150- 199 High Risk 200-499 Very High Risk >=500Cholesterol Reference Range: Low Risk <200 Borderline 200-239 High Risk > 240HDL Cholesterol Reference Range: Low Risk >=60 High Risk <40LDL Cholesterol Reference Range: Optimal <100 Near Optimal 100-129 Borderline 130-159 High 160-189 Very High >=190HEPATIC FUNCTION [id number] 04:38:00 Test Item Value Reference Range Comments TOTAL PROTEIN (BEAKER) (test 6.9 gm/dL 6.0-8.3 Specimen slightly hemolyzed fqyk=767) ALBUMIN (BEAKER) (test 3.8 g/dL 3.5-5.0 Specimen slightly hemolyzed fwvw=8849) BILIRUBIN TOTAL (BEAKER) (test 0.3 mg/dL 0.2-1.2 Specimen slightly hemolyzed nlnt=957) BILIRUBIN DIRECT (BEAKER) (test 0.1 mg/dL 0.1-0.5 Specimen slightly hemolyzed fkyw=835) ALKALINE PHOSPHATASE (BEAKER) 95 U/L 40-150 (test pbnn=542) AST (SGOT) (BEAKER) (test 20 U/L 5-34 Specimen slightly hemolyzed efsq=472) ALT (SGPT) (BEAKER) (test 13 U/L 6-55 Specimen slightly hemolyzed uzom=472) CBC (HEMOGRAM ONLY)2018-08-18 03:55:00 Test Item Value Reference Range Comments WHITE BLOOD CELL COUNT (BEAKER) (test rtjm=823) 5.7 K/ L 3.5-10.5 RED BLOOD CELL COUNT (BEAKER) (test cmvr=354) 4.44 M/ L 3.93-5.22 HEMOGLOBIN (BEAKER) (test bwdz=934) 12.9 GM/DL 11.2-15.7 HEMATOCRIT (BEAKER) (test pwly=534) 39.8 % 34.1-44.9 MEAN CORPUSCULAR VOLUME (BEAKER) (test ylrp=720) 89.6 fL 79.4-94.8 MEAN CORPUSCULAR HEMOGLOBIN (BEAKER) (test 29.1 pg 25.6-32.2 iriq=530) MEAN CORPUSCULAR HEMOGLOBIN CONC (BEAKER) (test 32.4 GM/DL 32.2-35.5 qhoy=598) RED CELL DISTRIBUTION WIDTH (BEAKER) (test 12.6 % 11.7-14.4 kgdg=963) PLATELET COUNT (BEAKER) (test juzr=133) 210 K/CU MM 150-450 MEAN PLATELET VOLUME (BEAKER) (test gbgr=472) 10.3 fL 9.4-12.3 NUCLEATED RED BLOOD CELLS (BEAKER) (test 0 /100 WBC 0-0 hjlq=761) AFB Culture and [id number] 13:24:00Specimen/Source: Wound/ PACEMAKERCollected: 09/05/2017 19:45 Status: Final Last Updated: 2017 13:24 MYD-Tyeww-Tiedndetumoc (Final) (Final) 09/07/17 No acid fast bacill seen on direct smear Culture Result (Final) (Final) 11/01/17 No growth of AFB at six (6) weeksFungus Culture with [id number] 12:12: 00Specimen/Source: Wound/PACEMAKERCollected: 09/05/2017 19:45 Status: Final Last Updated: 10/22/2017 12:12 Fungal Smear Result (Final) (Final) 09/06/17 No yeast or hyphae seen Culture Result (Final) (Final) 10/22/17 No fungus isolated at 6 weeksCulture, Blood [id number] 08:23:00Specimen: BloodCollected: 09/04/2017 20:30 Status: Final Last Updated: 09/10/2017 08: 23 Culture Result (Final) (Final) No Growth After 5 DaysCulture, Blood [id number] 08:23:00Specimen: BloodCollected: 09/04/2017 20:15 Status: Final Last Updated: 09/10/2017 08:23 Culture Result (Final) (Final) No Growth After 5 DaysCulture, Wound [id number] 08:52:00Specimen: WoundCollected: 09/05/2017 19:45 Status: Final Last Updated: 09/08/2017 08: 52 Gram Stain (Final) (Final) 09/06/17 No organisms seen, Few WBC's Culture Result (Final) (Final) 09/08/17 Anaerobic culture:No anaerobes isolated at 3 days Isolate (Final) (Final) 09/07/17Few Staph-coag positive Isolate Staph-coag positive JERMAINE (mcg/ml) Amoxicillin/Clav (AUG)<=4/2 Susceptible Ampicillin (AM) >8 Resistant Ampicillin/Sulb (A/S) <=8/4 Susceptible Cefazolin (CFZ) <=4 Susceptible Ceftriaxone (CHURN DRILLER) <=4 Susceptible Chloramphenicol (C) <=8 Susceptible Ciprofloxacin (CP) <=1 Susceptible Clindamycin (CM) 0.5 Susceptible Erythromycin (E) <=0.25 Susceptible Gentamicin (GM) <=1 Susceptible Imipenem (IMP) <=4 Susceptible Levofloxacin (LEV) <=0.5 Susceptible Linezolid (LNZ) 4 Susceptible Oxacillin (OX1) 0.5 Susceptible Penicillin (P) >8 Resistant Rifampin ( RA) <=1 Susceptible Tetracycline (TE) <=1 Susceptible Trimethoprim/Sulfa <=0.5/9.Susceptible (SXT) 5 Vancomycin (VA) 2 SusceptibleRenal [id number] 08:51: 00 Test Item Value Reference Range [...] race is not provided, and the patient isAfrican-Citizen Of [place], multiply by 1.212. If sex is not [...] the National Kidney Foundation,http://nkdep.nih .gov CBC with [id number] 07:39:00 Test Item Value Reference Range Comments [...] Lymph Abs (test code=ALYMPH) 1.7 K/cumm 0.5-4.6 [place] Abs (test code=AMONO) 0.3 K/cumm 0.0-1.2 Eos Abs (test code=AEOS) 0.29 K/cumm 0.00-0.74 Baso Abs (test code=ABASO) 0.0 K/cumm 0.00-0.21 Vancomycin, [id number] 12:33:00 Test Item Value Reference Range Comments Vanco, Trou (test code=VANTR) 7.9 ug/mL 10.0-20.0 Magnesium, [id number] 06:37:00 Test Item Value Reference Range Comments Magnesium (test code=MG) 2.4 mg/dL 1.7-2.5 Renal [id number] 06:29:00 Test Item Value Reference Range Comments [...] race is not provided, and the patient isAfrican-Citizen [place], multiply by 1.212. If sex is not [...] the National Kidney Foundation,http://nkdep.nih .gov BHCG, Serum, [id number] 06:26:00 Test Item Value Reference Range Comments Preg Qual [Se] (test code=BSHCG) Negative Negative CBC with [id number] 06:24:00 Test Item Value Reference Range Comments [...] Lymph Abs (test code=ALYMPH) 1.6 K/cumm 0.5-4.6 [place] Abs (test code=AMONO) 0.4 K/cumm 0.0-1.2 Eos Abs (test code=AEOS) 0.18 K/cumm 0.00-0.74 Baso Abs (test code=ABASO) 0.0 K/cumm 0.00-0.21 XR CHEST 1 [id number] 16:29:55XR CHEST 1 VIEWLOCATION: [id number]: None.INDICATION: REVIEW PICC LINE PLACEMENTDISCUSSION:AP chest and [...] TSH (test code=TSH) 3.44 mIU/mL 0.270-4.200 Lipid [id number] 05:47:00 Test Item Value Reference Range Comments Cholesterol (test 160 mg/dL 0-200 code=CHOL) Triglycerides (test 126 mg/dL 9-200 code=TRIG) HDL (test code=HDL) 35 mg/dL 50-60 Chol/HDL (test 4.6 Ratio 0.0-4.4 code=CHOLPHDL) LDL, Calculated (test 100 0-130 (NOTE)RISK OF HEART code=LDLC) DISEASEPublished by Citizen Of [place] Heart AssociationAnalyte Optimal Boderline Increased RiskCHOL <200 200-239 >240TRIG <150 150-199 >200HDL Male: >60 <40HDL Female: >60 <50LDL <100 130-159 >160LDL NEAR OPTIMAL IS 100-129 VLDL (test code=VLDL) 25 mg/dL 5-40 LDL/HDL (test code=LDLPHDL) 3 Basic Metabolic [id number] 05:47:00 Test Item Value Reference Range Comments [...] race is not provided, and the patient isAfrican-Citizen [place], multiply by 1.212. If sex is not provided, and thepatient is female, multiply by 0.742. Results for patients <18 years ofage have not been validated by the MDRD study and should be interpretedwith caution.eGFR Result Interpretation:eGFR > or=60 is in the Normal RangeeGFR < 60 may mean kidney diseaseeGFR < 15 may mean kidney failureRanges recommended by the National Kidney Foundation,http://nkdep.nih .gov Magnesium, [id number] 05:47:00 Test Item Value Reference Range Comments Magnesium (test code=MG) 2.3 mg/dL 1.7-2.5 CBC with [id number] 05:36:00 Test Item Value Reference Range Comments [...] Lymph Abs (test code=ALYMPH) 2.2 K/cumm 0.5-4.6 [place] Abs (test code=AMONO) 0.3 K/cumm 0.0-1.2 Eos Abs (test code=AEOS) 0.24 K/cumm 0.00-0.74 Baso Abs (test code=ABASO) 0.0 K/cumm 0.00-0.21 Partial Thromboplastin [id number] 21:26:00 Test Item Value Reference Range Comments aPTT (test code=PTT) 29.00 seconds 24.39-37.25 Prothrombin [id number] 21:26:00 Test Item Value Reference Range Comments PT (test code=PT) 10.70 seconds 9.78-13.35 INR (test code=INR) 0.95 Ratio 0.6-1.2 Comprehensive Metabolic [id number] 21:23:00 Test Item Value Reference Range Comments [...] race is not provided, and the patient isAfrican-Citizen [place], multiply by 1.212. If sex is not [...] the National Kidney Foundation,http://nkdep.nih .gov CBC with [id number] 21:16:00 Test Item Value Reference Range Comments [...] Lymph Abs (test code=ALYMPH) 2.2 K/cumm 0.5-4.6 [place] Abs (test code=AMONO) 0.4 K/cumm 0.0-1.2 Eos Abs (test code=AEOS) 0.17 K/cumm 0.00-0.74 Baso Abs (test code=ABASO) 0.1 K/cumm 0.00-0.21
[2019-06-10 17:44] LABS: Urine Blood TRACE (NEG); Urine Glucose NEGATIVE (NEG); Urine Protein NEGATIVE (NEG); Urine Specific Gravity 1.015 (1.005-1.030); Urine pH 7.5 (5.0-7.0)
[2019-06-10 17:52] LABS: Specific Gravity 1.015 (1.005-1.030)
[2019-06-10 18:06] LABS: Urine Amorphous Sediment 3+ /HPF (NONE SEEN); Urine Bacteria <20 /HPF (<20); Urine Culture Reflex Order REFLEXED; Urine RBC <5 /HPF (NONE SEEN)
[2019-06-10] MEDS ORDERED: MEPERIDINE HCL 25 MG/0.5 ML ONE ×2 (18:58→20:30)
[2019-06-10] MEDS ORDERED: ONDANSETRON 4 MG/2 ML VIAL ONE (18:58)
[2019-06-10 19:01] LABS: Absolute Lymphocytes (CBC) 2.1 K/uL (0.7-4.9); Basophils % 1.1 % (0-1.3); Hematocrit 38.9 % (36.0-45.0); Lymphocytes % 29.3 % (15.3-44.8); MPV 8.8 fL (7.6-11.3); RBC Red Blood Cell Count 4.45 M/uL (3.86-4.86)
[2019-06-10 23:18] LABS: ALT/SGPT 18 U/L (12-78); AST/SGOT 13 U/L (15-37); Albumin 3.6 g/dL (3.4-5.0); Alkaline Phosphatase 117 U/L (45-117); BUN Blood Urea Nitrogen 16 mg/dL (7-18); Bicarbonate 29 mmol/L (21-32); Bilirubin Direct < 0.1 mg/dL (0-0.2); Bilirubin Total 0.2 mg/dL (0.2-1.0); Glucose Level 104 mg/dL (74-106); Lipase 162 U/L (73-393); Potassium 4.2 mmol/L (3.5-5.1); Sodium Level 144 mmol/L (136-145)
--- NOTE | 2019-06-10 23:30 | ER ---
Nurse's Notes [facility] Name: Jenni Draper Age: 39 yrs Sex: Female : 1980 Arrival Date: 06/10/2019 Time: 16:52 Bed 15 Private MD: Diagnosis: Abdominal and pelvic pain;Dysuria Presentation: 06/10 16:55 Presenting complaint: Patient states: LUQ RLQ pain, back pain, pain with urination sv started this morning. Transition of care: patient was not received from another setting of care. Onset of symptoms was June 10, 2019. Risk Assessment: Do you want to hurt yourself or someone else? Patient reports no desire to harm self or others. Care prior to arrival: None. 16:55 Method Of Arrival: Wheelchair sv 16:55 Acuity: LYUBOV 3 sv 18:52 Initial Sepsis Screen: Does the patient meet any 2 criteria? No. Patient's initial iw sepsis screen is negative. Does the patient have a suspected source of infection? No. Patient's initial sepsis screen is negative. Triage Assessment: 16:55 General: Appears in no apparent distress. uncomfortable, Behavior is cooperative, sv appropriate for age, anxious. Pain: Complains of pain in posterior aspect of right lateral abdomen, anterior aspect of right lateral abdomen, right upper quadrant and right lower quadrant. Neuro: Level of Consciousness is awake, alert, obeys commands. Respiratory: Respiratory effort is even, unlabored, Respiratory pattern is regular, symmetrical. SAP BASIS ADMINISTRATOR: 18:52 LMP N/A - iw Historical: - Allergies: 16:57 Adhesives; sv 16:57 Aspirin; sv 16:57 Bactrim; sv 16:57 Benadryl; sv 16:57 Ciprofloxacin; sv 16:57 Clindamycin; sv 16:57 Codeine; sv 16:57 Detrol; sv 16:57 GABAPENTIN; sv 16:57 Iodine; sv 16:57 Latex, Natural Rubber; sv 16:57 Morphine; sv 16:57 PENICILLINS; sv 16:57 Seroquel; sv 16:57 Sulfa (Sulfonamide Antibiotics); sv 16:57 tramadol; sv 16:59 Diltiazem; sv - PMHx: 16:57 Anemia; Anxiety; Asthma; Hypertension; Back pain; Bronchitis; dvt to left leg; sv HYPOGLYCEMIA; Hypothyroidism; internal heart monitor; Kidney stones; mitral valve prolapse; Myocardial infarction; neuropathy; Pacemaker; Seizures; sick sinus syndrome; TIA; Upper Resp Infection; - PSHx: 16:57 Hysterectomy; sv - Immunization history:: Adult Immunizations up to date. - Social history:: Smoking status: Patient/guardian denies using tobacco, never smoked. - Ebola Screening: : Patient negative for fever greater than or equal to 101.5 degrees Fahrenheit, and additional compatible Ebola Virus Disease symptoms Patient denies exposure to infectious person Patient denies travel to an Ebola-affected area in the 21 days before illness onset No symptoms or risks identified at this time. Screenin:53 Abuse screen: Denies threats or abuse. Denies injuries from another. Nutritional iw screening: No deficits noted. Tuberculosis screening: No symptoms or risk factors identified. Fall Risk IV access (20 points). Assessment: 18:52 General: Appears in no apparent distress. Behavior is calm, cooperative. Pain: iw Complains of pain in suprapubic area, right lower quadrant and left lower quadrant Pain radiates to back. Neuro: Level of Consciousness is awake, alert, obeys commands, Oriented to person, place, time, situation, Moves all extremities. Full function. Cardiovascular: Patient's skin is warm and dry. Respiratory: Respiratory effort is even, unlabored, Respiratory pattern is regular, symmetrical, GI: Bowel sounds present X 4 quads. Abd is soft X 4 quads Abdomen is tender to palpation in right lower quadrant and left lower quadrant Reports lower abdominal pain. : Reports pain in bilateral in suprapubic area with urination. Derm: Skin is intact, is healthy with good turgor. Musculoskeletal: Range of motion: intact in all extremities. 19:39 Reassessment: Patient and/or family updated on plan of care and expected duration. Pain lc1 level reassessed. Patient states symptoms have not improved. Reassessment: Patient is alert, oriented x 3, equal unlabored respirations, skin warm/dry/pink. 20:39 Reassessment: No changes from previously documented assessment. Patient states symptoms lc1 have not improved. pain still a 9 . 21:21 Reassessment: No changes from previously documented assessment. Patient and/or family lc1 updated on plan of care and expected duration. Pain level reassessed. Patient is alert, oriented x 3, equal unlabored respirations, skin warm/dry/pink. Patient states feeling better. Patient states symptoms have improved. 22:00 Reassessment: No changes from previously documented assessment. Patient and/or family lc1 updated on plan of care and expected duration. Pain level reassessed. Patient is alert, oriented x 3, equal unlabored respirations, skin warm/dry/pink. 23:00 Reassessment: Patient appears in no apparent distress at this time. Patient and/or rr5 family updated on plan of care and expected duration. Pain level reassessed. Patient is alert, oriented x 3, equal unlabored respirations, skin warm/dry/pink. awaiting for review. 23:54 Reassessment: Patient appears in no apparent distress at this time. Patient is alert, rr5 oriented x 3, equal unlabored respirations, skin warm/dry/pink. discharge instruction given and explained without complaints made. verbalized understanding. Vital Signs: 16:59 BP 113 / 71; Pulse 105; Resp 20; Temp 98.6; Pulse Ox 98% ; Weight 45.81 kg; Height 4 sv ft. 11 in. (149.86 cm); 19:05 BP 113 / 87; Pulse 96; Resp 16; Pulse Ox 99% on R/A; Pain 9/10; iw 20:39 BP 103 / 77; Pulse 84; Resp 16; Pulse Ox 98% on R/A; lc1 21:21 BP 97 / 77; Pulse 77; Resp 18; Pulse Ox 96% on R/A; Pain 7/10; lc1 22:00 BP 93 / 57; Pulse 78; Resp 16; Pulse Ox 97% on R/A; lc1 23:00 BP 99 / 65; Pulse 79; Resp 17; Pulse Ox 98% ; rr5 23:55 BP 94 / 68; Pulse 75; Resp 17; Temp 98; Pulse Ox 99% ; rr5 16:59 Body Mass Index 20.40 (45.81 kg, 149.86 cm) sv ED Course: 16:52 Patient arrived in ED. as 16:54 Arm band placed on. sv 16:56 Triage completed. sv 18:25 Flor Chauhan, RN is Primary Nurse. iw 18:26 Emory Barber PA is PHCP. jr8 18:26 Caio Aceves MD is Attending Physician. jr8 18:51 Initial lab(s) drawn, by me, sent to lab. Inserted saline lock: 24 gauge in right iw antecubital area, using aseptic technique. Blood collected. 19:00 Report received from Flor. lc1 19:39 Awaiting re-evaluation by ER provider. lc1 19:39 Patient has correct armband on for positive identification. Bed in low position. lc1 20:57 CT completed. Patient tolerated procedure well. Patient moved to CT via wheelchair. va Patient moved back from CT. 21:09 CT Abd/Pelvis - Without Contrast In Process Unspecified. EDMS 21:21 Awaiting disposition. lc1 21:21 No provider procedures requiring assistance completed. lc1 23:56 IV discontinued, intact, bleeding controlled, No redness/swelling at site. Pressure rr5 dressing applied. Administered Medications: 19:04 Drug: Demerol 25 mg Route: IVP; Site: right antecubital; 19:37 Follow up: Response: No adverse reaction; Pain is unchanged, physician notified [facility] 19:38 Follow up: Response: RASS: Restless (+1) [facility] 19:04 Drug: Zofran 4 mg Route: IVP; Site: right antecubital; 19:38 Follow up: Response: No adverse reaction [facility] 20:38 Drug: Demerol 25 mg {Note: RASS 0.} Route: IVP; Site: right antecubital; [facility] 21:29 Follow up: Response: No adverse reaction; Pain is decreased; RASS: Alert and Calm (0) [facility] Outcome: 23:29 Discharge ordered by . shannon 23:56 Discharged to home ambulatory, with family. rr5 23:56 Condition: stable 23:56 Discharge instructions given to patient, Instructed on discharge instructions, follow up and referral plans. Demonstrated understanding of instructions, follow-up care. 23:57 Patient left the ED. rr5 Signatures: Dispatcher [employer] EDMS Patti Gandara RN RN sv Martinez, Amelia as Williams, Irene, RN RN Gloria, Mari lc1 Emory Barber PA PA jr8 Jong Murrell Raymond, RN RN rr5
--- NOTE | 2019-06-10 23:31 | EDPHYS ---
Physician Documentation [facility] Name: Jenni Draper Age: 39 yrs Sex: Female : 1980 Arrival Date: 06/10/2019 Time: 16:52 Bed 15 Private MD: ED Physician Caio Aceves HPI: 06/10 21:39 This 39 yrs old Female presents to ER via Wheelchair with complaints of jr8 Abdominal Pain. 21:39 The patient presents with abdominal pain in the lower abdomen. Onset: The jr8 symptoms/episode began/occurred acutely, today. The symptoms do not radiate. Associated signs and symptoms: Pertinent positives: dysuria. The symptoms are described as stabbing. Modifying factors: The symptoms are alleviated by nothing, the symptoms are aggravated by nothing. Severity of pain: At its worst the pain was moderate in the emergency department the pain is unchanged. The patient has not experienced similar symptoms in the past. The patient has not recently seen a physician. DIRECTOR FIXED INCOME: 18:52 LMP N/A - iw Historical: - Allergies: 16:57 Adhesives; sv 16:57 Aspirin; sv 16:57 Bactrim; sv 16:57 Benadryl; sv 16:57 Ciprofloxacin; sv 16:57 Clindamycin; sv 16:57 Codeine; sv 16:57 Detrol; sv 16:57 GABAPENTIN; sv 16:57 Iodine; sv 16:57 Latex, Natural Rubber; sv 16:57 Morphine; sv 16:57 PENICILLINS; sv 16:57 Seroquel; sv 16:57 Sulfa (Sulfonamide Antibiotics); sv 16:57 tramadol; sv 16:59 Diltiazem; sv - PMHx: 16:57 Anemia; Anxiety; Asthma; Hypertension; Back pain; Bronchitis; dvt to left leg; sv HYPOGLYCEMIA; Hypothyroidism; internal heart monitor; Kidney stones; mitral valve prolapse; Myocardial infarction; neuropathy; Pacemaker; Seizures; sick sinus syndrome; TIA; Upper Resp Infection; - PSHx: 16:57 Hysterectomy; sv - Immunization history:: Adult Immunizations up to date. - Social history:: Smoking status: Patient/guardian denies using tobacco, never smoked. - Ebola Screening: : Patient negative for fever greater than or equal to 101.5 degrees Fahrenheit, and additional compatible Ebola Virus Disease symptoms Patient denies exposure to infectious person Patient denies travel to an Ebola-affected area in the 21 days before illness onset No symptoms or risks identified at this time. ROS: 21:39 Eyes: Negative for injury, pain, redness, and discharge, ENT: Negative for injury, jr8 pain, and discharge, Neck: Negative for injury, pain, and swelling, Cardiovascular: Negative for chest pain, palpitations, and edema, Respiratory: Negative for shortness of breath, cough, wheezing, and pleuritic chest pain, Back: Negative for injury and pain, MS/Extremity: Negative for injury and deformity, Skin: Negative for injury, rash, and discoloration, Neuro: Negative for headache, weakness, numbness, tingling, and seizure. 21:39 Abdomen/GI: Positive for abdominal pain, Negative for nausea, vomiting, and diarrhea, abdominal cramps, abdominal distension, anorexia, dysphagia, hematemesis, black/tarry stool, rectal pain, rectal bleeding, bowel incontinence, flatulence. 21:39 : Positive for urinary symptoms. Exam: 21:39 Eyes: Pupils equal round and reactive to light, extra-ocular motions intact. Lids and jr8 lashes normal. Conjunctiva and sclera are non-icteric and not injected. Cornea within normal limits. Periorbital areas with no swelling, redness, or edema. ENT: Nares patent. No nasal discharge, no septal abnormalities noted. Tympanic membranes are normal and external auditory canals are clear. Oropharynx with no redness, swelling, or masses, exudates, or evidence of obstruction, uvula midline. Mucous membranes moist. Neck: Trachea midline, no thyromegaly or masses palpated, and no cervical lymphadenopathy. Supple, full range of motion without nuchal rigidity, or vertebral point tenderness. No Meningismus. Cardiovascular: Regular rate and rhythm with a normal S1 and S2. No gallops, murmurs, or rubs. Normal PMI, no JVD. No pulse deficits. Respiratory: Lungs have equal breath sounds bilaterally, clear to auscultation and percussion. No rales, rhonchi or wheezes noted. No increased work of breathing, no retractions or nasal flaring. Back: No spinal tenderness. No costovertebral tenderness. Full range of motion. Skin: Warm, dry with normal turgor. Normal color with no rashes, no lesions, and no evidence of cellulitis. MS/ Extremity: Pulses equal, no cyanosis. Neurovascular intact. Full, normal range of motion. Neuro: Awake and alert, GCS 15, oriented to person, place, time, and situation. Cranial nerves II-XII grossly intact. Motor strength 5/5 in all extremities. Sensory grossly intact. Cerebellar exam normal. Normal gait. 21:39 Abdomen/GI: Inspection: abdomen appears normal, Bowel sounds: active, all quadrants, Palpation: soft, in all quadrants, moderate abdominal tenderness, in the suprapubic area, right lower quadrant and left lower quadrant, mass, is not appreciated, rebound tenderness, is not appreciated, voluntary guarding, is not appreciated, involuntary guarding, is not appreciated, no appreciated organomegaly, Indicators: McBurney's point is not tender, Dunaway's sign is negative, Rovsing's sign is negative, Liver: tenderness, is not appreciated. Vital Signs: 16:59 BP 113 / 71; Pulse 105; Resp 20; Temp 98.6; Pulse Ox 98% ; Weight 45.81 kg; Height 4 sv ft. 11 in. (149.86 cm); 19:05 BP 113 / 87; Pulse 96; Resp 16; Pulse Ox 99% on R/A; Pain 9/10; iw 20:39 BP 103 / 77; Pulse 84; Resp 16; Pulse Ox 98% on R/A; lc1 21:21 BP 97 / 77; Pulse 77; Resp 18; Pulse Ox 96% on R/A; Pain 7/10; lc1 22:00 BP 93 / 57; Pulse 78; Resp 16; Pulse Ox 97% on R/A; lc1 23:00 BP 99 / 65; Pulse 79; Resp 17; Pulse Ox 98% ; rr5 23:55 BP 94 / 68; Pulse 75; Resp 17; Temp 98; Pulse Ox 99% ; rr5 16:59 Body Mass Index 20.40 (45.81 kg, 149.86 cm) sv MDM: 18:26 Patient medically screened. jr8 23:29 Data reviewed: vital signs, nurses notes, lab test result(s), radiologic studies, CT jr8 scan. Data interpreted: Pulse oximetry: on room air is 97 %. Interpretation: normal. Counseling: I had a detailed discussion with the patient and/or guardian regarding: the historical points, exam findings, and any diagnostic results supporting the discharge/admit diagnosis, lab results, radiology results, the need for outpatient follow up, a family practitioner, to return to the emergency department if symptoms worsen or persist or if there are any questions or concerns that arise at home. Response to treatment: the patient's symptoms have markedly improved after treatment. 06/10 17:42 Order name: Urine Microscopic Only; Complete Time: 18:26 ok 06/10 17:42 Order name: Urine Dipstick--Ancillary (enter results) ok 06/10 17:43 Order name: Test, Urine; Complete Time: 18:26 [facility] 06/10 17:45 Order name: Urine Dipstick-Ancillary [facility] 06/10 18:23 Order name: Urine Culture [facility] 06/10 18:27 Order name: Basic Metabolic Panel; Complete Time: 23:[address] [facility] 06/10 18:27 Order name: CBC with Diff; Complete Time: 19:[address] [facility] 06/10 18:27 Order name: Creatinine for Radiology; Complete Time: 23:[address] [facility] 06/10 18:27 Order name: Hepatic Function; Complete Time: 23:[address] [facility] 06/10 18:27 Order name: Lipase; Complete Time: 23:[address] [facility] 06/10 20:43 Order name: CT Abd/Pelvis - Without Contrast [facility] 06/10 18:27 Order name: IV Saline Lock; Complete Time: 18:[address] [facility] 06/10 18:27 Order name: Labs collected and sent; Complete Time: 18:[address] [facility] Administered Medications: 19:04 Drug: Demerol 25 mg Route: IVP; Site: right antecubital; iw 19:37 Follow up: Response: No adverse reaction; Pain is unchanged, physician notified lc1 19:38 Follow up: Response: RASS: Restless (+1) 1 19:04 Drug: Zofran 4 mg Route: IVP; Site: right antecubital; iw 19:38 Follow up: Response: No adverse reaction lc1 20:38 Drug: Demerol 25 mg {Note: RASS 0.} Route: IVP; Site: right antecubital; lc1 21:29 Follow up: Response: No adverse reaction; Pain is decreased; RASS: Alert and Calm (0) lc1 Disposition: 06/11 07:43 Co-signature as Attending Physician, Caio Aceves MD I agree with the assessment and taty plan of care. Disposition: 06/10/19 23:29 Discharged to Home. Impression: Abdominal and pelvic pain, Dysuria. - Condition is Stable. - Discharge Instructions: Abdominal Pain, Adult, Dysuria. - Medication Reconciliation Form, Thank You Letter, Antibiotic Education, Prescription Opioid Use form. - Follow up: Private Physician; When: 2 - 3 days; Reason: Recheck today's complaints, Continuance of care, Re-evaluation by your physician. - Problem is new. - Symptoms have improved. Signatures: Dispatcher [employer] EDPatti Veliz, RN RN Caio Gordon MD MD cha Williams, Irene RN Mari [id number] Emory Barber PA PA jr8 Darlene Perry RN RN Jamie Perez, RN RN rr5 Corrections: (The following items were deleted from the chart) 06/10 23:57 23:29 06/10/2019 23:29 Discharged to Home. Impression: Abdominal and pelvic pain; rr5 Dysuria. Condition is Stable. Forms are Medication Reconciliation Form, Thank You Letter, Antibiotic Education, Prescription Opioid Use. Follow up: Private Physician; When: 2 - 3 days; Reason: Recheck today's complaints, Continuance of care, Re-evaluation by your physician. Problem is new. Symptoms have improved. jr8
[2019-06-11 02:03] VITALS: BP 94/68; TEMP 98; O2SAT 99
--- NOTE | 2019-06-11 10:35 | RAD REPORT ---
EXAM DESCRIPTION: CT Abdomen Pelvis Wo Contrast CLINICAL HISTORY: 39 years Female ABD PAIN TECHNIQUE: Contiguous axial images obtained through the abdomen and pelvis without IV contrast. Co haydee and sagittal reformatted images provided. This CT exam was performed according to our departmental dose-optimization program, which includes on e or more of the following dose reduction techniques: automated exposure control, adjustment of the m A and/or kV according to patient size, and/or use of iterative reconstruction technique. COMPARISON: No prior exams provided for comparison. FINDINGS: There are several tiny punctate nonobstructing intrarenal calculi bilaterally. No ureteral or bladder calculi. There is no hydronephrosis or perinephric stranding on either side. The appendix is normal. There is no bowel inflammation, obstruction, free intraperitoneal air, or asc ites. Prior cholecystectomy without biliary dilatation. The unenhanced liver, pancreas, spleen, adrenal glands, urinary bladder, and osseous structures demon strate no acute findings. IMPRESSION: Bilateral nephrolithiasis without urinary obstruction. No acute abdominal or pelvic abnormalities. Normal appendix. Electronically signed by: Nannette Candelario MD 06/10/2019 9:37 PM CDT Due to temporary technical issues with the PACS/Fluency reporting system, reports are being signed by the in house radiologist as a courtesy to ensure prompt reporting. The interpreting radiologist is f ully responsible for the content of the report.
== END 2019-06-10 23:57 | disposition home or self-care (01) ==
LOC: ER 16:50
DX: R10.2 Pelvic and perineal pain (principal); I10 Essential (primary) hypertension; Z95.0 Presence of cardiac pacemaker; Z88.0 Allergy status to penicillin; Z88.1 Allergy status to other antibiotic agents; Z88.6 Allergy status to analgesic agent; Z88.8 Allergy status to other drugs, medicaments and biological substances; Z91.040 Latex allergy status; Z91.048 Other nonmedicinal substance allergy status
CPT/HCPCS: 87088; 85025; 87086; 80048; 36415; 81025; 80076; 83690; 74176; 96375; 96374; 99284; J2175 ×2; J2405; 81003; 81015

== ENCOUNTER 2019-08-13 11:12 | Emergency (ER) | payer MEDICAID ==
--- OUTSIDE RECORDS SUMMARY | 2019-08-13 11:16 | XMS REPORT ---
:1980 Author Organization [facility] Address [address] [place] [address] Care Team Providers Name Role Phone MILTONTAMARA [...] Facility Department ID 2017-09-06 2017-09-08 [id number]:12:00 02:32:00 LYLY Results Test Description Test Time Test Comments Text Results Atomic Results Result Comments POCT-GLUCOSE METER 2018-08-21 10:22:00 Test Item Value Reference Range Comments POC-GLUCOSE METER (BEAKER) (test 102 mg/dL 70-110 TESTED AT [facility] [address] umad=[id number]) [facility] [address] MR, MRA, BRAIN, WITHOUT [id number] 09:32:00Reason for exam:-> Ischemic Stroke EvaluationFINAL REPORT MRA Head CLINICAL HISTORY: Ischemic Stroke TECHNIQUE: MRA of the head utilizing 3-D time-of- flight technique, with 3-D reconstructions. COMPARISON: None FINDINGS: There is no evidence of intracranial aneurysm, focal stenosis, or major branch vessel occlusion. IMPRESSION: No evidence for a major [place] proximal branch vessel occlusion. MRA Neck CLINICAL HISTORY: Ischemic Stroke TECHNIQUE : MRA of the neck utilizing 2-D and 3-D twfb-gw-xkdqmq technique, with 3-D reconstructions. COMPARISON: None FINDINGS: The carotid arteries in the neck are patent including their bifurcations. There is antegrade flow in the vertebral arteries in the neck. IMPRESSION: No evidence of hemodynamically significant stenosis in the cervical carotid or vertebral arteries by NASCET criteria. Signed: Santos Neff MDReport Verified Date/Time: 08/21/2018 09:32: 09 Reading Location: [address] Neuro Reading Room MR, MRA, NECK, WITHOUT IV [id number] 09:32:00Reason for exam:->Ischemic Stroke EvaluationFINAL REPORT MRA Head CLINICAL HISTORY: Ischemic Stroke TECHNIQUE: MRA of the head utilizing 3-D ilsz-kg-erfwqv technique, with 3-D reconstructions. COMPARISON: None FINDINGS: There is no evidence of intracranial aneurysm, focal stenosis, or major branch vessel occlusion. IMPRESSION: No evidence for a major [place] proximal branch vessel occlusion. MRA Neck CLINICAL HISTORY: Ischemic Stroke TECHNIQUE: MRA of the neck utilizing 2-D and 3-D dsmu-bl-kcrzdh technique, with 3-D reconstructions. COMPARISON: None FINDINGS: The carotid arteries in the neck are patent including their bifurcations. There is antegrade flow in the vertebral arteries in the neck. IMPRESSION: No evidence of hemodynamically significant stenosis in the cervical carotid or vertebral arteries by NASCET criteria. Signed: Santos Neff MDRiman Verified Date/Time: 08/21/2018 09:32:09 Reading Location: [address] Neuro Reading Room MR, BRAIN, WITHOUT [id number] 09:25: 00Reason for exam:->Ischemic Stroke EvaluationFINAL REPORT [...] Verified Date/Time: 08/21/2018 09:25:25 Reading Location : [facility] C013V Neuro Reading Room POCT-GLUCOSE [id number] 21:26:00 Test Item Value Reference Range Comments POC-GLUCOSE METER (BEAKER) 119 mg/dL 70-110 TESTED AT [address] (test wnlj=8694) [facility] [address] POCT-GLUCOSE [id number] 18:03:00 Test Item Value Reference Range Comments POC-GLUCOSE METER (BEAKER) 119 mg/dL 70-110 TESTED AT [address] (test qrvw=8136) [place] [id number] POCT-GLUCOSE [id number] 12:39:00 Test Item Value Reference Range Comments POC-GLUCOSE METER (BEAKER) 120 mg/dL 70-110 TESTED AT [address] (test ddvv=7097) [facility] [address] RAD, CHEST, 1 VIEW, NON [id number] 12:04:00Reason for exam:->To Locate Heart Device (Pacemaker)Should [...] MDReport Verified Date/Time: 08/20/2018 12:04:06 [facility] POCT-GLUCOSE [id number] 09:17:00 Test Item Value Reference Range Comments POC-GLUCOSE METER (BEAKER) 121 mg/dL 70-110 TESTED AT [address] (test raqj=5908) [facility] [address] BASIC METABOLIC [id number] 06:56:00 Test Item Value Reference Range Comments SODIUM (BEAKER) (test 140 meq/L 136-145 ewaw=245) POTASSIUM (BEAKER) (test 4.0 meq/L 3.5-5.1 ubre=791) CHLORIDE (BEAKER) (test 108 meq/L 98-107 jiwb=081) CO2 (BEAKER) (test 25 meq/L 22-29 szdx=709) BLOOD UREA NITROGEN 11 mg/dL 7-21 (BEAKER) (test hivc=724) CREATININE (BEAKER) (test 0.69 mg/dL 0.57-1.25 ugmj=502) GLUCOSE RANDOM (BEAKER) 94 mg/dL 70-105 (test tnmx=541) CALCIUM (BEAKER) (test 9.5 mg/dL 8.4-10.2 nlyg=592) EGFR (BEAKER) (test 96 mL/min/1.73 sq m ESTIMATED GFR IS NOT ypjm=7957) ACCURATE CREATININE CLEARANCE IN PREDICTING GLOMERULAR FILTRATION RATE. ESTIMATED GFR IS NOT APPLICABLE FOR DIALYSIS PATIENTS. POCT-GLUCOSE [id number] 21:09:00 Test Item Value Reference Range Comments POC-GLUCOSE METER (BEAKER) 109 mg/dL 70-110 TESTED AT [address] (test tvay=6547) [place] [id number] POCT-GLUCOSE [id number] 17:15:00 Test Item Value Reference Range Comments POC-GLUCOSE METER (BEAKER) 117 mg/dL 70-110 TESTED AT [address] (test ione=0052) [place] [address] VITAMIN B12 AND [id number] 06:39:00 Test Item Value Reference Range Comments VITAMIN B12 (BEAKER) (test drgn=705) 524 pg/mL 213-816 FOLATE (BEAKER) (test yklq=293) 13.5 ng/mL >=7.0 BASIC METABOLIC [id number] 05:48:00 Test Item Value Reference Range Comments SODIUM (BEAKER) (test 139 meq/L 136-145 xetd=460) POTASSIUM (BEAKER) (test 4.0 meq/L 3.5-5.1 vzcx=495) CHLORIDE (BEAKER) (test 107 meq/L 98-107 qahd=793) CO2 (BEAKER) (test 24 meq/L 22-29 ccyv=121) BLOOD UREA NITROGEN 11 mg/dL 7-21 (BEAKER) (test bvuu=207) CREATININE (BEAKER) (test 0.72 mg/dL 0.57-1.25 lekp=293) GLUCOSE RANDOM (BEAKER) 107 mg/dL 70-105 (test dlsu=558) CALCIUM (BEAKER) (test 9.5 mg/dL 8.4-10.2 xrmr=236) EGFR (BEAKER) (test 91 mL/min/1.73 sq m ESTIMATED GFR IS NOT vlwi=0578) ACCURATE CREATININE CLEARANCE IN PREDICTING GLOMERULAR FILTRATION RATE. ESTIMATED GFR IS NOT APPLICABLE FOR DIALYSIS PATIENTS. [id number] 15:42:00 Test Item Value Reference Range Comments RPR SCREEN (BEAKER) (test ajqm=585) Nonreactive Nonreactive HEMOGLOBIN [id number] 09:14:00 Test Item Value Reference Range Comments HEMOGLOBIN A1C (BEAKER) (test vrwi=507) 5.3 % 4.3-6.1 TSH/FREE T4 IF [id number] 04:49:00 Test Item Value Reference Range Comments THYROID STIMULATING HORMONE (BEAKER) (test 3.18 uIU/mL 0.35-4.94 rmal=755) BASIC METABOLIC [id number] 04:38:00 Test Item Value Reference Range Comments SODIUM (BEAKER) (test 139 meq/L 136-145 vcua=154) POTASSIUM (BEAKER) (test 4.2 meq/L 3.5-5.1 Specimen slightly oimu=598) hemolyzed CHLORIDE (BEAKER) (test 107 meq/L 98-107 ihhu=934) CO2 (BEAKER) (test 26 meq/L 22-29 niwb=406) BLOOD UREA NITROGEN 10 mg/dL 7-21 (BEAKER) (test vcbs=289) CREATININE (BEAKER) (test 0.73 mg/dL 0.57-1.25 Specimen slightly jjfr=773) hemolyzed GLUCOSE RANDOM (BEAKER) 104 mg/dL 70-105 (test kfqf=001) CALCIUM (BEAKER) (test 9.7 mg/dL 8.4-10.2 dybl=452) EGFR (BEAKER) (test 90 mL/min/1.73 sq m ESTIMATED GFR IS NOT pxfc=6277) ACCURATE CREATININE CLEARANCE IN PREDICTING GLOMERULAR FILTRATION RATE. ESTIMATED GFR IS NOT APPLICABLE FOR DIALYSIS PATIENTS. LIPID [id number] 04:38:00 Test Item Value Reference Range Comments TRIGLYCERIDES (BEAKER) (test 121 mg/dL Specimen slightly hemolyzed mszi=133) CHOLESTEROL (BEAKER) (test 172 mg/dL Specimen slightly hemolyzed fsuh=845) HDL CHOLESTEROL (BEAKER) (test 36 mg/dL vsrz=653) LDL CHOLESTEROL CALCULATED 112 mg/dL (BEAKER) (test huvf=646) Triglyceride Reference Range: Low Risk <150 Borderline 150- 199 High Risk 200-499 Very High Risk >=500Cholesterol Reference Range: Low Risk <200 Borderline 200-239 High Risk > 240HDL Cholesterol Reference Range: Low Risk >=60 High Risk <40LDL Cholesterol Reference Range: Optimal <100 Near Optimal 100-129 Borderline 130-159 High 160-189 Very High >=190HEPATIC FUNCTION [id number] 04:38:00 Test Item Value Reference Range Comments TOTAL PROTEIN (BEAKER) (test 6.9 gm/dL 6.0-8.3 Specimen slightly hemolyzed wvng=329) ALBUMIN (BEAKER) (test 3.8 g/dL 3.5-5.0 Specimen slightly hemolyzed wbsl=4026) BILIRUBIN TOTAL (BEAKER) (test 0.3 mg/dL 0.2-1.2 Specimen slightly hemolyzed dqgb=054) BILIRUBIN DIRECT (BEAKER) (test 0.1 mg/dL 0.1-0.5 Specimen slightly hemolyzed hdju=220) ALKALINE PHOSPHATASE (BEAKER) 95 U/L 40-150 (test vboi=842) AST (SGOT) (BEAKER) (test 20 U/L 5-34 Specimen slightly hemolyzed qgwx=782) ALT (SGPT) (BEAKER) (test 13 U/L 6-55 Specimen slightly hemolyzed cxef=788) CBC (HEMOGRAM ONLY)2018-08-18 03:55:00 Test Item Value Reference Range Comments WHITE BLOOD CELL COUNT (BEAKER) (test vmrl=853) 5.7 K/ L 3.5-10.5 RED BLOOD CELL COUNT (BEAKER) (test bkuh=642) 4.44 M/ L 3.93-5.22 HEMOGLOBIN (BEAKER) (test hblz=570) 12.9 GM/DL 11.2-15.7 HEMATOCRIT (BEAKER) (test vgum=801) 39.8 % 34.1-44.9 MEAN CORPUSCULAR VOLUME (BEAKER) (test gpxp=765) 89.6 fL 79.4-94.8 MEAN CORPUSCULAR HEMOGLOBIN (BEAKER) (test 29.1 pg 25.6-32.2 fgdg=396) MEAN CORPUSCULAR HEMOGLOBIN CONC (BEAKER) (test 32.4 GM/DL 32.2-35.5 oafq=922) RED CELL DISTRIBUTION WIDTH (BEAKER) (test 12.6 % 11.7-14.4 ahfg=452) PLATELET COUNT (BEAKER) (test upzi=845) 210 K/CU MM 150-450 MEAN PLATELET VOLUME (BEAKER) (test wlcc=043) 10.3 fL 9.4-12.3 NUCLEATED RED BLOOD CELLS (BEAKER) (test 0 /100 WBC 0-0 phlt=526) AFB Culture and [id number] 13:24:00Specimen/Source: Wound/ PACEMAKERCollected: 09/05/2017 19:45 Status: Final Last Updated: 2017 13:24 HKE-Uoacq-Sormctleffys (Final) (Final) 09/07/17 No acid fast bacill seen on direct smear Culture Result (Final) (Final) 11/01/17 No growth of AFB at six (6) weeksFungus Culture with [id number] 12:12: 00Specimen/Source: Wound/PACEMAKERCollected: 09/05/2017 19:45 Status: Final Last Updated: 10/22/2017 12:12 Fungal Smear Result (Final) (Final) 09/06/17 No yeast or hyphae seen Culture Result (Final) (Final) 10/22/17 No fungus isolated at 6 weeksCulture, Blood [id number] 08:23:00Specimen: BloodCollected: 09/04/2017 20:30 Status: Final Last Updated: 09/10/2017 08: 23 Culture Result (Final) (Final) No Growth After 5 DaysCulture, Blood [id number] 08:23:00Specimen: BloodCollected: 09/04/2017 20:15 Status: Final Last Updated: 09/10/2017 08:23 Culture Result (Final) (Final) No Growth After 5 DaysCulture, Wound [id number] 08:52:00Specimen: WoundCollected: 09/05/2017 19:45 Status: Final Last Updated: 09/08/2017 08: 52 Gram Stain (Final) (Final) 09/06/17 No organisms seen, Few WBC's Culture Result (Final) (Final) 09/08/17 Anaerobic culture:No anaerobes isolated at 3 days Isolate (Final) (Final) 09/07/17Few Staph-coag positive Isolate Staph-coag positive JERMAINE (mcg/ml) Amoxicillin/Clav (AUG)<=4/2 Susceptible Ampicillin (AM) >8 Resistant Ampicillin/Sulb (A/S) <=8/4 Susceptible Cefazolin (CFZ) <=4 Susceptible Ceftriaxone (CABLE TESTERS HELPER) <=4 Susceptible Chloramphenicol (C) <=8 Susceptible Ciprofloxacin (CP) <=1 Susceptible Clindamycin (CM) 0.5 Susceptible Erythromycin (E) <=0.25 Susceptible Gentamicin (GM) <=1 Susceptible Imipenem (IMP) <=4 Susceptible Levofloxacin (LEV) <=0.5 Susceptible Linezolid (LNZ) 4 Susceptible Oxacillin (OX1) 0.5 Susceptible Penicillin (P) >8 Resistant Rifampin ( RA) <=1 Susceptible Tetracycline (TE) <=1 Susceptible Trimethoprim/Sulfa <=0.5/9.Susceptible (SXT) 5 Vancomycin (VA) 2 SusceptibleRenal [id number] 08:51: 00 Test Item Value Reference Range [...] race is not provided, and the patient isAfrican-Dutch, multiply by 1.212. If sex is not [...] the National Kidney Foundation,http://nkdep.nih .gov CBC with [id number] 07:39:00 Test Item Value Reference Range Comments [...] Lymph Abs (test code=ALYMPH) 1.7 K/cumm 0.5-4.6 Dawson Abs (test code=AMONO) 0.3 K/cumm 0.0-1.2 Eos Abs (test code=AEOS) 0.29 K/cumm 0.00-0.74 Baso Abs (test code=ABASO) 0.0 K/cumm 0.00-0.21 Vancomycin, [id number] 12:33:00 Test Item Value Reference Range Comments Vanco, Trou (test code=VANTR) 7.9 ug/mL 10.0-20.0 Magnesium, [id number] 06:37:00 Test Item Value Reference Range Comments Magnesium (test code=MG) 2.4 mg/dL 1.7-2.5 Renal [id number] 06:29:00 Test Item Value Reference Range Comments [...] race is not provided, and the patient isAfrican-Dutch, multiply by 1.212. If sex is not [...] the National Kidney Foundation,http://nkdep.nih .gov BHCG, Serum, [id number] 06:26:00 Test Item Value Reference Range Comments Preg Qual [Se] (test code=BSHCG) Negative Negative CBC with [id number] 06:24:00 Test Item Value Reference Range Comments [...] Lymph Abs (test code=ALYMPH) 1.6 K/cumm 0.5-4.6 Dawson Abs (test code=AMONO) 0.4 K/cumm 0.0-1.2 Eos Abs (test code=AEOS) 0.18 K/cumm 0.00-0.74 Baso Abs (test code=ABASO) 0.0 K/cumm 0.00-0.21 XR CHEST 1 [id number] 16:29:55XR CHEST 1 VIEWLOCATION: [id number]: None.INDICATION: REVIEW PICC LINE PLACEMENTDISCUSSION:AP chest and [...] TSH (test code=TSH) 3.44 mIU/mL 0.270-4.200 Lipid [id number] 05:47:00 Test Item Value Reference Range Comments Cholesterol (test 160 mg/dL 0-200 code=CHOL) Triglycerides (test 126 mg/dL 9-200 code=TRIG) HDL (test code=HDL) 35 mg/dL 50-60 Chol/HDL (test 4.6 Ratio 0.0-4.4 code=CHOLPHDL) LDL, Calculated (test 100 0-130 (NOTE)RISK OF HEART code=LDLC) DISEASEPublished by Dutch Heart AssociationAnalyte Optimal Boderline Increased RiskCHOL <200 200-239 >240TRIG <150 150-199 >200HDL Male: >60 <40HDL Female: >60 <50LDL <100 130-159 >160LDL NEAR OPTIMAL IS 100-129 VLDL (test code=VLDL) 25 mg/dL 5-40 LDL/HDL (test code=LDLPHDL) 3 Basic Metabolic [id number] 05:47:00 Test Item Value Reference Range Comments [...] race is not provided, and the patient isAfrican-Dutch, multiply by 1.212. If sex is not provided, and thepatient is female, multiply by 0.742. Results for patients <18 years ofage have not been validated by the MDRD study and should be interpretedwith caution.eGFR Result Interpretation:eGFR > or=60 is in the Normal RangeeGFR < 60 may mean kidney diseaseeGFR < 15 may mean kidney failureRanges recommended by the National Kidney Foundation,http://nkdep.nih .gov Magnesium, [id number] 05:47:00 Test Item Value Reference Range Comments Magnesium (test code=MG) 2.3 mg/dL 1.7-2.5 CBC with [id number] 05:36:00 Test Item Value Reference Range Comments [...] Lymph Abs (test code=ALYMPH) 2.2 K/cumm 0.5-4.6 Dawson Abs (test code=AMONO) 0.3 K/cumm 0.0-1.2 Eos Abs (test code=AEOS) 0.24 K/cumm 0.00-0.74 Baso Abs (test code=ABASO) 0.0 K/cumm 0.00-0.21 Partial Thromboplastin [id number] 21:26:00 Test Item Value Reference Range Comments aPTT (test code=PTT) 29.00 seconds 24.39-37.25 Prothrombin [id number] 21:26:00 Test Item Value Reference Range Comments PT (test code=PT) 10.70 seconds 9.78-13.35 INR (test code=INR) 0.95 Ratio 0.6-1.2 Comprehensive Metabolic [id number] 21:23:00 Test Item Value Reference Range Comments [...] race is not provided, and the patient isAfrican-Dutch, multiply by 1.212. If sex is not [...] the National Kidney Foundation,http://nkdep.nih .gov CBC with [id number] 21:16:00 Test Item Value Reference Range Comments [...] Lymph Abs (test code=ALYMPH) 2.2 K/cumm 0.5-4.6 Dawson Abs (test code=AMONO) 0.4 K/cumm 0.0-1.2 Eos Abs (test code=AEOS) 0.17 K/cumm 0.00-0.74 Baso Abs (test code=ABASO) 0.1 K/cumm 0.00-0.21
[2019-08-13] MEDS ORDERED: MEPERIDINE HCL 25 MG/0.5 ML ONE (12:08)
[2019-08-13] MEDS ORDERED: LEVALBUTEROL 1.25 MG/3 ML NEB ONE (12:09)
[2019-08-13] MEDS ORDERED: ONDANSETRON 4 MG/2 ML VIAL ONE (12:10)
--- NOTE | 2019-08-13 13:15 | EKG ---
Test Date: 2019-08-13 Test Time: 11:30:10 Software Applications Engineer: TRINA MEASUREMENT RESULTS: Intervals: Rate: 101 NE: 128 QRSD: 84 QT: 354 QTc: 459 [place]: P: 54 NE: 128 QRS: 51 T: 47 INTERPRETIVE STATEMENTS: Sinus tachycardia Otherwise normal ECG Compared to ECG 08/17/2018 12:38:51 Sinus rhythm no longer present Electronically Signed On 08-13-19 13:15:21 PUBLIC WORKS TECHNICIAN by Nadeem Rajan
--- NOTE | 2019-08-13 13:23 | RAD REPORT ---
EXAM DESCRIPTION: RAD - Chest Pa And Lat (2 Views) - 08/13/2019 1:12 pm CLINICAL HISTORY: Chest pain;Dyspnea Chest pain. COMPARISON: Chest Pa And Lat (2 Views) dated 04/16/2019; Chest Single View dated 03/03/2019; Chest Sing le View dated 01/24/2019; Chest Single View dated 08/17/2018 FINDINGS: The lungs are clear. The heart is normal in size. Dual lead pacer device is present. No di splaced fractures. IMPRESSION: No acute or concerning finding suspected.
[2019-08-13 13:50] LABS: Absolute Lymphocytes (CBC) 1.3 K/uL (0.7-4.9); Basophils % 0.5 % (0-1.3); Hematocrit 40.7 % (36.0-45.0); Lymphocytes % 17.7 % (15.3-44.8); MPV 8.4 fL (7.6-11.3); RBC Red Blood Cell Count 4.75 M/uL (3.86-4.86)
[2019-08-13 14:05] LABS: Protime INR 0.99
[2019-08-13 14:08] LABS: BUN Blood Urea Nitrogen 9 mg/dL (7-18); Bicarbonate 27 mmol/L (21-32); Glucose Level 86 mg/dL (74-106); NT PRO-BNP 91 pg/mL (<125); Potassium 3.4 mmol/L (3.5-5.1); Sodium Level 141 mmol/L (136-145); Troponin (Emerg Dept Use Only) < 0.02 ng/mL (0.0-0.045)
[2019-08-13] MEDS ORDERED: HYDROMORPHONE HCL 0.5 MG/0.5 ML INJ ONE (14:10)
[2019-08-13] MEDS ORDERED: PROMETHAZINE 25 MG/ML VIAL ONE (14:10)
--- NOTE | 2019-08-13 15:32 | EDPHYS ---
Physician Documentation [facility] Name: Jenni Draper Age: 39 yrs Sex: Female : 1980 Arrival Date: 08/13/2019 Time: 11:15 Bed 13 Private MD: ED Physician Tanner Robbins HPI: 08/13 11:53 This 39 yrs old Female presents to ER via Ambulatory with complaints of rn Cough, Congestion, Chest Pain, Shortness Of Breath. 11:53 The patient or guardian reports cough, flu symptoms, low-grade fever. rn 11:53 Onset: The symptoms/episode began/occurred 2 day(s) ago. Severity of symptoms: At their rn worst the symptoms were moderate, in the emergency department the symptoms are unchanged. Modifying factors: The symptoms are alleviated by nothing, the symptoms are aggravated by nothing. The patient has not experienced similar symptoms in the past. The patient has not recently seen a physician. Reports son with flu, now she is having cough/congestion/sore throat. Reports woke up today with left sided chest pain, constant, not made worse by anything specifically. Reports hx of DVT in leg, never had PE, takes eliquis. . 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 hb Historical: - Allergies: 11:22 Adhesives; hb 11:22 Aspirin; hb 11:22 Bactrim; hb 11:22 Benadryl; hb 11:22 Ciprofloxacin; hb 11:22 Clindamycin; hb 11:22 Codeine; hb 11:22 Detrol; hb 11:22 Diltiazem; hb 11:22 GABAPENTIN; hb 11:22 Iodine; hb 11:22 Latex, Natural Rubber; hb 11:22 Morphine; hb 11:22 PENICILLINS; hb 11:22 Seroquel; hb 11:22 Sulfa (Sulfonamide Antibiotics); hb 11:22 tramadol; hb - Home Meds: 11:22 Abilify 10 mg Oral tab 1 tab once daily [Active]; Abilify 5 mg Oral tab 1 tab nightly hb [Active]; albuterol sulfate 1.25 mg/3 mL Inhl nebu 3 mL 3 times per day [Active]; apixaban 5 mg BID Oral [Active]; atorvastatin 10 mg Oral tab 1 tab once daily [Active]; benztropine 1 mg Oral tab 1 tab 2 times per day [Active]; Breo Ellipta 100-25 mcg/dose inhalation dsdv 1 puff once daily [Active]; buspirone 15 mg Oral tab 1 tab 2 times per day [Active]; Coreg 25 mg Oral tab 1 tab 2 times per day [Active]; Daliresp 500 mcg Oral tab 1 tab once daily [Active]; digoxin 125 mcg Oral tab 1 tab once daily [Active]; Eliquis 5 mg Oral tab once a day [Active]; esomeprazole magnesium 40 mg Oral cpDR 1 cap once daily [Active]; Keppra 1,000 mg Oral tab 1 tab every 12 hours [Active]; ketorolac 10 mg Oral tab 1 tab every 6 hours [Active]; levothyroxine 150 mcg tab 1 tab once daily [Active]; loratadine 10 mg Oral tab 1 tab once daily [Active]; methocarbamol 500 mg Oral tab 1 tabs 4 times per day [Active]; Ranexa 500 mg Oral Tb12 1 tab 2 times per day [Active]; Spiriva with HandiHaler 18 mcg inhalation CpDv 1 cap once daily [Active]; Topamax 100 mg Oral tab 2 tabs 2 times per day [Active]; venlafaxine 150 mg Oral cp24 1 cap once daily [Active]; Xanax 0.25 mg Oral tab 1 tab PRN [Active]; - PMHx: 11:22 Anemia; Anxiety; Asthma; Back pain; Bronchitis; dvt to left leg; Hypertension; hb HYPOGLYCEMIA; Hypothyroidism; internal heart monitor; Kidney stones; mitral valve prolapse; Myocardial infarction; neuropathy; Pacemaker; Seizures; sick sinus syndrome; TIA; Upper Resp Infection; - PSHx: 11:22 Hysterectomy; hb - Immunization history:: Adult Immunizations up to date. - Social history:: Smoking status: Patient/guardian denies using tobacco. - Ebola Screening: : No symptoms or risks identified at this time. - Family history:: not pertinent. - Hospitalizations: : No recent hospitalization is reported. ROS: 11:53 Constitutional: Negative for fever, chills, and weight loss, Eyes: Negative for injury, rn pain, redness, and discharge, ENT: + congestion and sore throat Neck: Negative for injury, pain, and swelling, Cardiovascular: Negative for chest pain, palpitations, and edema, Respiratory: Negative for wheezing Abdomen/GI: Negative for abdominal pain, vomiting, diarrhea, and constipation, MS/Extremity: Negative for injury and deformity, Skin: Negative for injury, rash, and discoloration, Neuro: Negative for headache, weakness, numbness, tingling, and seizure. Exam: 11:55 Constitutional: This is a well developed, well nourished patient who is awake, alert, rn mild tachypnea Head/Face: Normocephalic, atraumatic. Eyes: Pupils equal round and reactive to light, extra-ocular motions intact. Lids and lashes normal. Conjunctiva and sclera are non-icteric and not injected. Cornea within normal limits. Periorbital areas with no swelling, redness, or edema. ENT: + bad breath and mouth breathing, mild pharyngeal erythema, no exudate or swelling. No stridor. Neck: Trachea midline, no thyromegaly or masses palpated, and no cervical lymphadenopathy. Supple, full range of motion without nuchal rigidity, or vertebral point tenderness. No Meningismus. Cardiovascular: Regular rate and rhythm. No pulse deficits. Respiratory: Lungs have equal breath sounds bilaterally, clear to auscultation. Mild tachypnea, otherwise clear breath sounds. Abdomen/GI: soft, non-tender Skin: Warm, dry with normal turgor. Normal color with no rashes, no lesions, and no evidence of cellulitis. MS/ Extremity: Pulses equal, no cyanosis. Neurovascular intact. Full, normal range of motion. Equal circumference. Neuro: Awake and alert, GCS 15, oriented to person, place, time, and situation. Cranial nerves II-XII grossly intact. Motor strength 5/5 in all extremities. Sensory grossly intact. Ambulatory to room without difficulty. Vital Signs: 11:22 BP 120 / 82; Pulse 94; Resp 20; Temp 98.9(TE); Pulse Ox 97% on R/A; Weight 49.9 kg; hb Height 4 ft. 11 in. (149.86 cm); Pain 9/10; 13:00 BP 112 / 77; Pulse 103; Resp 18; Pulse Ox 98% on R/A; ph 14:00 BP 104 / 81; Pulse 97; Resp 16; Pulse Ox 97% on R/A; ph 15:05 BP 103 / 67; Pulse 103; Resp 18; Pulse Ox 96% on R/A; ph 11:22 Body Mass Index 22.22 (49.90 kg, 149.86 cm) hb MDM: 11:44 Patient medically screened. rn 15:30 Differential Diagnosis: Influenza Upper Respiratory Infection Viral Syndrome Pneumonia. rn Data reviewed: vital signs, nurses notes, lab test result(s), EKG, radiologic studies, plain films, and as a result, I will discharge patient. Counseling: I had a detailed discussion with the patient and/or guardian regarding: the historical points, exam findings, and any diagnostic results supporting the discharge/admit diagnosis, lab results, radiology results, the need for outpatient follow up, to return to the emergency department if symptoms worsen or persist or if there are any questions or concerns that arise at home. Response to treatment: the patient's symptoms have markedly improved after treatment, and as a result, I will discharge patient. Special discussion: Based on the patient's history, exam, and Dx evaluation, there is no indication for emergent intervention or inpatient Tx. It is understood by the patient/guardian that if the Sx's persist or worsen they need to return immediately for re-evaluation. I discussed with the patient/guardian in detail that at this point there is no indication for admission to the hospital. It is understood, however, that if the symptoms persist or worsen the patient needs to return immediately for re-evaluation. ED course: Chest pain resolved, flu-like symptoms, possible pleurisy vs infectious etiology, d-dimer neg, will dc home with pain meds and abx.. 08/13 11:51 Order name: Blood Culture Adult (2) rn 08/13 11:51 Order name: BMP; Complete Time: 14:23 rn 08/13 11:51 Order name: CBC with Diff; Complete Time: 14:23 rn 08/13 11:51 Order name: D-Dimer; Complete Time: 14:23 rn 08/13 11:51 Order name: NT PRO-BNP; Complete Time: 14:23 rn 08/13 11:51 Order name: Troponin (emerg Dept Use Only); Complete Time: 14:23 rn 08/13 11:51 Order name: XRAY Chest Pa And Lat (2 Views); Complete Time: 13:35 rn 08/13 11:51 Order name: Flu; Complete Time: 13:35 rn 08/13 11:51 Order name: Strep; Complete Time: 13:08 rn 08/13 11:51 Order name: PT-INR; Complete Time: 14:23 rn 08/13 11:51 Order name: Ptt, Activated; Complete Time: 14:23 rn 08/13 13:04 Order name: Throat Culture EDMS 08/13 11:51 Order name: EKG; Complete Time: 11:53 rn 08/13 11:51 Order name: Cardiac monitoring; Complete Time: 12:51 rn 08/13 11:51 Order name: EKG - Nurse/Tech; Complete Time: 12:06 rn 08/13 11:51 Order name: IV Saline Lock; Complete Time: 12:51 rn 08/13 11:51 Order name: Labs collected and sent; Complete Time: 15:26 rn 08/13 11:51 Order name: O2 Per Protocol; Complete Time: 12:06 rn 08/13 11:51 Order name: O2 Sat Monitoring; Complete Time: 12:06 rn Administered Medications: 12:40 Drug: Xopenex 1.25 mg Route: Inhalation; ph 12:45 Drug: Zofran 4 mg Route: IVP; Site: right forearm; ph 12:47 Drug: Demerol 25 mg Route: IVP; Site: right forearm; ph 14:20 Drug: Phenergan 12.5 mg Route: IVP; Site: right forearm; ph 14:21 Drug: Dilaudid 0.5 mg Route: IVP; Site: right forearm; ph Disposition: 08/13/19 15:31 Discharged to Home. Impression: Pleurisy, Chest pain, unspecified. - Condition is Stable. - Discharge Instructions: Chest Wall Pain, Pleurisy. - Prescriptions for Tylenol- Codeine #3 300-30 mg Oral Tablet - take 1 tablet by ORAL route every 6 hours As needed; 20 tablet. Zithromax Z- Juliocesar 250 mg Oral Tablet - take 1 tablet by ORAL route as directed for 5 days Day 1 - take two (2) tablets one time. Day 2, 3, 4 , 5 take one (1) tablet once daily.; 6 tablet. - Medication Reconciliation Form, Thank You Letter, Antibiotic Education, Prescription Opioid Use form. - Follow up: Private Physician; When: As needed; Reason: Recheck today's complaints, Re-evaluation by your physician. - Problem is new. - Symptoms have improved. Signatures: Dispatcher [employer] EDMS Tanner Robbins MD MD rn Hall, Patricia, RN RN Adriana Meyers RN RN Alberta Nieto RN RN tw2 Corrections: (The following items were deleted from the chart) 16:01 15:31 08/13/2019 15:31 Discharged to Home. Impression: Pleurisy; Chest pain, tw2 unspecified. Condition is Stable. Forms are Medication Reconciliation Form, Thank You Letter, Antibiotic Education, Prescription Opioid Use. Follow up: Private Physician; When: As needed; Reason: Recheck today's complaints, Re-evaluation by your physician. Problem is new. Symptoms have improved. rn
--- NOTE | 2019-08-13 15:32 | ER ---
Nurse's Notes [facility] Name: Jenni Draper Age: 39 yrs Sex: Female : 1980 Arrival Date: 08/13/2019 Time: 11:15 Bed 13 Private MD: Diagnosis: Pleurisy;Chest pain, unspecified Presentation: 08/13 11:18 Presenting complaint: Sharp left sided chest pain that woke her from sleep at 0200 hb today. Also s/o nonproductive cough, sinus congestion, body aches, sore throat, and nausea x 2 days. Son dx with flu b last week. Transition of care: patient was not received from another setting of care. Onset of symptoms was August 12, 2019. Risk Assessment: Do you want to hurt yourself or someone else? Patient reports no desire to harm self or others. Care prior to arrival: Medication(s) given: Albuterol neb, Tylenol, and Robitussin at 0800. 11:18 Method Of Arrival: Ambulatory hb 11:18 Acuity: LYUBOV 3 hb 13:00 Initial Sepsis Screen: Does the patient meet any 2 criteria? No. Patient's initial ph sepsis screen is negative. Does the patient have a suspected source of infection?. 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 hb Historical: - Allergies: 11:22 Adhesives; hb 11:22 Aspirin; hb 11:22 Bactrim; hb 11:22 Benadryl; hb 11:22 Ciprofloxacin; hb 11:22 Clindamycin; hb 11:22 Codeine; hb 11:22 Detrol; hb 11:22 Diltiazem; hb 11:22 GABAPENTIN; hb 11:22 Iodine; hb 11:22 Latex, Natural Rubber; hb 11:22 Morphine; hb 11:22 PENICILLINS; hb 11:22 Seroquel; hb 11:22 Sulfa (Sulfonamide Antibiotics); hb 11:22 tramadol; hb - Home Meds: 11:22 Abilify 10 mg Oral tab 1 tab once daily [Active]; Abilify 5 mg Oral tab 1 tab nightly hb [Active]; albuterol sulfate 1.25 mg/3 mL Inhl nebu 3 mL 3 times per day [Active]; apixaban 5 mg BID Oral [Active]; atorvastatin 10 mg Oral tab 1 tab once daily [Active]; benztropine 1 mg Oral tab 1 tab 2 times per day [Active]; Breo Ellipta 100-25 mcg/dose inhalation dsdv 1 puff once daily [Active]; buspirone 15 mg Oral tab 1 tab 2 times per day [Active]; Coreg 25 mg Oral tab 1 tab 2 times per day [Active]; Daliresp 500 mcg Oral tab 1 tab once daily [Active]; digoxin 125 mcg Oral tab 1 tab once daily [Active]; Eliquis 5 mg Oral tab once a day [Active]; esomeprazole magnesium 40 mg Oral cpDR 1 cap once daily [Active]; Keppra 1,000 mg Oral tab 1 tab every 12 hours [Active]; ketorolac 10 mg Oral tab 1 tab every 6 hours [Active]; levothyroxine 150 mcg tab 1 tab once daily [Active]; loratadine 10 mg Oral tab 1 tab once daily [Active]; methocarbamol 500 mg Oral tab 1 tabs 4 times per day [Active]; Ranexa 500 mg Oral Tb12 1 tab 2 times per day [Active]; Spiriva with HandiHaler 18 mcg inhalation CpDv 1 cap once daily [Active]; Topamax 100 mg Oral tab 2 tabs 2 times per day [Active]; venlafaxine 150 mg Oral cp24 1 cap once daily [Active]; Xanax 0.25 mg Oral tab 1 tab PRN [Active]; - PMHx: 11:22 Anemia; Anxiety; Asthma; Back pain; Bronchitis; dvt to left leg; Hypertension; hb HYPOGLYCEMIA; Hypothyroidism; internal heart monitor; Kidney stones; mitral valve prolapse; Myocardial infarction; neuropathy; Pacemaker; Seizures; sick sinus syndrome; TIA; Upper Resp Infection; - PSHx: 11:22 Hysterectomy; hb - Immunization history:: Adult Immunizations up to date. - Social history:: Smoking status: Patient/guardian denies using tobacco. - Ebola Screening: : No symptoms or risks identified at this time. - Family history:: not pertinent. - Hospitalizations: : No recent hospitalization is reported. Screenin:01 Abuse screen: Denies threats or abuse. Denies injuries from another. Nutritional ph screening: No deficits noted. Tuberculosis screening: No symptoms or risk factors identified. Fall Risk None identified. Assessment: 12:15 General: Appears in no apparent distress. comfortable, Behavior is calm, cooperative, ph appropriate for age. Pain: Complains of pain in anterior aspect of left upper chest Pain does not radiate. Neuro: Level of Consciousness is awake, alert, obeys commands, Oriented to person, place, time, situation. Cardiovascular: Capillary refill < 3 seconds Patient's skin is warm and dry. Respiratory: Reports cough that is non-productive, Airway is patent Respiratory effort is even, unlabored, Respiratory pattern is regular, symmetrical. GI: Abdomen is flat, non-distended, Reports nausea, vomiting, Patient currently denies diarrhea. EENT: Reports nasal congestion pain when swallowing. Derm: Skin is intact, Skin is pink, warm \T\ dry. Musculoskeletal: Circulation, motion, and sensation intact. Range of motion: intact in all extremities. 13:00 Reassessment: Patient appears in no apparent distress at this time. Patient and/or ph family updated on plan of care and expected duration. Pain level reassessed. Patient is alert, oriented x 3, equal unlabored respirations, skin warm/dry/pink. 14:00 Reassessment: Patient appears in no apparent distress at this time. Patient and/or ph family updated on plan of care and expected duration. Pain level reassessed. Patient is alert, oriented x 3, equal unlabored respirations, skin warm/dry/pink. 15:01 Reassessment: Patient appears in no apparent distress at this time. Patient and/or ph family updated on plan of care and expected duration. Pain level reassessed. Patient is alert, oriented x 3, equal unlabored respirations, skin warm/dry/pink. Vital Signs: 11:22 BP 120 / 82; Pulse 94; Resp 20; Temp 98.9(TE); Pulse Ox 97% on R/A; Weight 49.9 kg; hb Height 4 ft. 11 in. (149.86 cm); Pain 9/10; 13:00 BP 112 / 77; Pulse 103; Resp 18; Pulse Ox 98% on R/A; ph 14:00 BP 104 / 81; Pulse 97; Resp 16; Pulse Ox 97% on R/A; ph 15:05 BP 103 / 67; Pulse 103; Resp 18; Pulse Ox 96% on R/A; ph 11:22 Body Mass Index 22.22 (49.90 kg, 149.86 cm) hb ED Course: 11:15 Patient arrived in ED. mr 11:20 Triage completed. hb 11:22 Arm band placed on. hb 11:25 EKG completed in triage. Results shown to MD. hb 11:44 Tanner Robbins MD is Attending Physician. rn 11:50 Darlene Perry, LAUREL is Primary Nurse. ph 12:40 Missed attempt(s): 22 gauge in right antecubital area. Bleeding controlled, band aid ph applied, catheter tip intact. 12:45 Inserted saline lock: 22 gauge in right forearm, using aseptic technique. ph 13:01 Patient has correct armband on for positive identification. Bed in low position. Call ph light in reach. Side rails up X 1. radiation monitor on. Pulse ox on. NIBP on. Door closed. Noise minimized. Warm blanket given. 13:13 XRAY Chest Pa And Lat (2 Views) In Process Unspecified. EDMS 16:01 No provider procedures requiring assistance completed. IV discontinued, intact, ph bleeding controlled, No redness/swelling at site. Pressure dressing applied. Administered Medications: 12:40 Drug: Xopenex 1.25 mg Route: Inhalation; ph 12:45 Drug: Zofran 4 mg Route: IVP; Site: right forearm; ph 12:47 Drug: Demerol 25 mg Route: IVP; Site: right forearm; ph 14:20 Drug: Phenergan 12.5 mg Route: IVP; Site: right forearm; ph 14:21 Drug: Dilaudid 0.5 mg Route: IVP; Site: right forearm; ph Outcome: 15:31 Discharge ordered by . rn 16:01 Patient left the ED. tw2 16:01 Discharged to home ambulatory, with family. ph 16:01 Condition: good 16:01 Discharge instructions given to patient, Instructed on discharge instructions, follow up and referral plans. medication usage, Demonstrated understanding of instructions, follow-up care, medications, Prescriptions given X 2. Signatures: Dispatcher [employer] [facility] Ailyn Bedoya Tanner Robbins MD MD rn Hall, Patricia, LAUREL RN Adriana Meyers RN RN hb Wise, Tara, RN RN tw2 Corrections: (The following items were deleted from the chart) 12:05 11:27 EKG completed in triage. Results shown to MD. hb hb
[2019-08-13 16:11] VITALS: TEMP 98.9
[2019-08-13 16:16] VITALS: BP 103/67; O2SAT 96
== END 2019-08-13 16:01 | disposition home or self-care (01) ==
LOC: ER 11:12
DX: R09.1 Pleurisy (principal); R07.9 Chest pain, unspecified; Z88.1 Allergy status to other antibiotic agents; Z88.8 Allergy status to other drugs, medicaments and biological substances; Z88.6 Allergy status to analgesic agent; Z88.2 Allergy status to sulfonamides; Z91.040 Latex allergy status; I10 Essential (primary) hypertension; E03.9 Hypothyroidism, unspecified; I25.2 Old myocardial infarction; Z95.0 Presence of cardiac pacemaker; J45.909 Unspecified asthma, uncomplicated
CPT/HCPCS: 93005; 87040 ×2; 87070; 85025; 80048; 36415; 85610; 85379; 87081; 85730; 84484; 83880; 87804 ×2; 71046; 96375; 96374; 99285; J2550; J2175; J1170; J2405

== ENCOUNTER 2019-09-14 22:24 | Emergency (ER) | payer MEDICAID ==
--- OUTSIDE RECORDS SUMMARY | 2019-09-14 22:27 | XMS REPORT ---
:1980 Author Organization [facility] Address [address] [place] [address] Care Team Providers Name Role Phone MILTONTAMARA [...] Facility Department ID 2017-09-06 2017-09-08 [id number] 10:12:00 02:32:00 LYLY Results Test Description Test Time Test Comments Text Results Atomic Results Result Comments POCT-GLUCOSE METER 2018-08-21 10:22:00 Test Item Value Reference Range Comments POC-GLUCOSE METER (BEAKER) (test 102 mg/dL 70-[address] [facility] [address] [facility] xial=[id number]) [facility] [address] MR, MRA, BRAIN, WITHOUT [id number] 09:32:00Reason for exam:-> Ischemic Stroke EvaluationFINAL REPORT MRA Head CLINICAL HISTORY: Ischemic Stroke TECHNIQUE: MRA of the head utilizing 3-D time-of- flight technique, with 3-D reconstructions. COMPARISON: None FINDINGS: There is no evidence of intracranial aneurysm, focal stenosis, or major branch vessel occlusion. IMPRESSION: No evidence for a major [place] proximal branch vessel occlusion. MRA Neck CLINICAL HISTORY: Ischemic Stroke TECHNIQUE : MRA of the neck utilizing 2-D and 3-D vedh-yc-qgayxj technique, with 3-D reconstructions. COMPARISON: None FINDINGS: The carotid arteries in the neck are patent including their bifurcations. There is antegrade flow in the vertebral arteries in the neck. IMPRESSION: No evidence of hemodynamically significant stenosis in the cervical carotid or vertebral arteries by NASCET criteria. Signed: Santos Neff MDReport Verified Date/Time: 08/21/2018 09:32: 09 Reading Location: [address] Neuro Reading Room MR, MRA, NECK, WITHOUT IV [id number] 09:32:00Reason for exam:->Ischemic Stroke EvaluationFINAL REPORT MRA Head CLINICAL HISTORY: Ischemic Stroke TECHNIQUE: MRA of the head utilizing 3-D kkol-mk-xbuxus technique, with 3-D reconstructions. COMPARISON: None FINDINGS: There is no evidence of intracranial aneurysm, focal stenosis, or major branch vessel occlusion. IMPRESSION: No evidence for a major [place] proximal branch vessel occlusion. MRA Neck CLINICAL HISTORY: Ischemic Stroke TECHNIQUE: MRA of the neck utilizing 2-D and 3-D vvof-ue-ugnpuj technique, with 3-D reconstructions. COMPARISON: None FINDINGS: The carotid arteries in the neck are patent including their bifurcations. There is antegrade flow in the vertebral arteries in the neck. IMPRESSION: No evidence of hemodynamically significant stenosis in the cervical carotid or vertebral arteries by NASCET criteria. Signed: Santos Neff MDRiman Verified Date/Time: 08/21/2018 09:32:09 Reading Location: [address] Neuro Reading Room MR, BRAIN, WITHOUT [id number] 09:25: 00Reason for exam:->Ischemic Stroke EvaluationFINAL REPORT [...] Verified Date/Time: 08/21/2018 09:25:25 Reading Location : [facility] [id number] Neuro Reading Room POCT-GLUCOSE [id number] 21:26:00 Test Item Value Reference Range Comments POC-GLUCOSE METER (BEAKER) 119 mg/dL 70-110 TESTED AT [address] (test zjek=5256) [facility] [address] POCT-GLUCOSE [id number] 18:03:00 Test Item Value Reference Range Comments POC-GLUCOSE METER (BEAKER) 119 mg/dL 70-110 TESTED AT [address] (test jplp=2003) [place] [id number] POCT-GLUCOSE [id number] 12:39:00 Test Item Value Reference Range Comments POC-GLUCOSE METER (BEAKER) 120 mg/dL 70-110 TESTED AT [address] (test zpds=0455) [facility] [address] RAD, CHEST, 1 VIEW, NON [id number] 12:04:00Reason for exam:->To Locate Heart Device (Pacemaker)Should [...] MDReport Verified Date/Time: 08/20/2018 12:04:06 [facility] POCT-GLUCOSE [id number] 09:17:00 Test Item Value Reference Range Comments POC-GLUCOSE METER (BEAKER) 121 mg/dL 70-110 TESTED AT [address] (test ozvz=0258) [facility] [address] BASIC METABOLIC [id number] 06:56:00 Test Item Value Reference Range Comments SODIUM (BEAKER) (test 140 meq/L 136-145 yple=139) POTASSIUM (BEAKER) (test 4.0 meq/L 3.5-5.1 vxhx=385) CHLORIDE (BEAKER) (test 108 meq/L 98-107 vedi=591) CO2 (BEAKER) (test 25 meq/L 22-29 fede=346) BLOOD UREA NITROGEN 11 mg/dL 7-21 (BEAKER) (test uyei=644) CREATININE (BEAKER) (test 0.69 mg/dL 0.57-1.25 xxjr=568) GLUCOSE RANDOM (BEAKER) 94 mg/dL 70-105 (test nipq=066) CALCIUM (BEAKER) (test 9.5 mg/dL 8.4-10.2 niuy=014) EGFR (BEAKER) (test 96 mL/min/1.73 sq m ESTIMATED GFR IS NOT mnlk=6920) ACCURATE CREATININE CLEARANCE IN PREDICTING GLOMERULAR FILTRATION RATE. ESTIMATED GFR IS NOT APPLICABLE FOR DIALYSIS PATIENTS. POCT-GLUCOSE [id number] 21:09:00 Test Item Value Reference Range Comments POC-GLUCOSE METER (BEAKER) 109 mg/dL 70-110 TESTED AT [address] (test fiyf=2066) [place] [id number] POCT-GLUCOSE [id number] 17:15:00 Test Item Value Reference Range Comments POC-GLUCOSE METER (BEAKER) 117 mg/dL 70-110 TESTED AT [address] (test ckct=8845) [place] [address] VITAMIN B12 AND [id number] 06:39:00 Test Item Value Reference Range Comments VITAMIN B12 (BEAKER) (test tkik=195) 524 pg/mL 213-816 FOLATE (BEAKER) (test cokn=106) 13.5 ng/mL >=7.0 BASIC METABOLIC [id number] 05:48:00 Test Item Value Reference Range Comments SODIUM (BEAKER) (test 139 meq/L 136-145 hfoz=823) POTASSIUM (BEAKER) (test 4.0 meq/L 3.5-5.1 jjtd=671) CHLORIDE (BEAKER) (test 107 meq/L 98-107 vrcl=632) CO2 (BEAKER) (test 24 meq/L 22-29 kece=908) BLOOD UREA NITROGEN 11 mg/dL 7-21 (BEAKER) (test uffg=359) CREATININE (BEAKER) (test 0.72 mg/dL 0.57-1.25 ybcp=581) GLUCOSE RANDOM (BEAKER) 107 mg/dL 70-105 (test qgib=275) CALCIUM (BEAKER) (test 9.5 mg/dL 8.4-10.2 ovyn=219) EGFR (BEAKER) (test 91 mL/min/1.73 sq m ESTIMATED GFR IS NOT minw=4306) ACCURATE CREATININE CLEARANCE IN PREDICTING GLOMERULAR FILTRATION RATE. ESTIMATED GFR IS NOT APPLICABLE FOR DIALYSIS PATIENTS. [id number] 15:42:00 Test Item Value Reference Range Comments RPR SCREEN (BEAKER) (test eyek=587) Nonreactive Nonreactive HEMOGLOBIN [id number] 09:14:00 Test Item Value Reference Range Comments HEMOGLOBIN A1C (BEAKER) (test oohn=081) 5.3 % 4.3-6.1 TSH/FREE T4 IF [id number] 04:49:00 Test Item Value Reference Range Comments THYROID STIMULATING HORMONE (BEAKER) (test 3.18 uIU/mL 0.35-4.94 xqht=461) BASIC METABOLIC [id number] 04:38:00 Test Item Value Reference Range Comments SODIUM (BEAKER) (test 139 meq/L 136-145 omua=163) POTASSIUM (BEAKER) (test 4.2 meq/L 3.5-5.1 Specimen slightly jzkq=027) hemolyzed CHLORIDE (BEAKER) (test 107 meq/L 98-107 gghk=738) CO2 (BEAKER) (test 26 meq/L 22-29 buwz=757) BLOOD UREA NITROGEN 10 mg/dL 7-21 (BEAKER) (test pguu=520) CREATININE (BEAKER) (test 0.73 mg/dL 0.57-1.25 Specimen slightly zbxi=714) hemolyzed GLUCOSE RANDOM (BEAKER) 104 mg/dL 70-105 (test vrgw=854) CALCIUM (BEAKER) (test 9.7 mg/dL 8.4-10.2 wvxu=128) EGFR (BEAKER) (test 90 mL/min/1.73 sq m ESTIMATED GFR IS NOT baej=7847) ACCURATE CREATININE CLEARANCE IN PREDICTING GLOMERULAR FILTRATION RATE. ESTIMATED GFR IS NOT APPLICABLE FOR DIALYSIS PATIENTS. LIPID [id number] 04:38:00 Test Item Value Reference Range Comments TRIGLYCERIDES (BEAKER) (test 121 mg/dL Specimen slightly hemolyzed hmtn=011) CHOLESTEROL (BEAKER) (test 172 mg/dL Specimen slightly hemolyzed nbue=522) HDL CHOLESTEROL (BEAKER) (test 36 mg/dL kgyb=013) LDL CHOLESTEROL CALCULATED 112 mg/dL (BEAKER) (test gvlo=732) Triglyceride Reference Range: Low Risk <150 Borderline 150- 199 High Risk 200-499 Very High Risk >=500Cholesterol Reference Range: Low Risk <200 Borderline 200-239 High Risk > 240HDL Cholesterol Reference Range: Low Risk >=60 High Risk <40LDL Cholesterol Reference Range: Optimal <100 Near Optimal 100-129 Borderline 130-159 High 160-189 Very High >=190HEPATIC FUNCTION [id number] 04:38:00 Test Item Value Reference Range Comments TOTAL PROTEIN (BEAKER) (test 6.9 gm/dL 6.0-8.3 Specimen slightly hemolyzed vqlj=826) ALBUMIN (BEAKER) (test 3.8 g/dL 3.5-5.0 Specimen slightly hemolyzed cttt=2316) BILIRUBIN TOTAL (BEAKER) (test 0.3 mg/dL 0.2-1.2 Specimen slightly hemolyzed ozqa=281) BILIRUBIN DIRECT (BEAKER) (test 0.1 mg/dL 0.1-0.5 Specimen slightly hemolyzed azhr=792) ALKALINE PHOSPHATASE (BEAKER) 95 U/L 40-150 (test qlul=460) AST (SGOT) (BEAKER) (test 20 U/L 5-34 Specimen slightly hemolyzed tsoe=257) ALT (SGPT) (BEAKER) (test 13 U/L 6-55 Specimen slightly hemolyzed zhws=019) CBC (HEMOGRAM ONLY)2018-08-18 03:55:00 Test Item Value Reference Range Comments WHITE BLOOD CELL COUNT (BEAKER) (test eowe=349) 5.7 K/ L 3.5-10.5 RED BLOOD CELL COUNT (BEAKER) (test pvhy=090) 4.44 M/ L 3.93-5.22 HEMOGLOBIN (BEAKER) (test ycsg=017) 12.9 GM/DL 11.2-15.7 HEMATOCRIT (BEAKER) (test pwbt=733) 39.8 % 34.1-44.9 MEAN CORPUSCULAR VOLUME (BEAKER) (test mnmc=806) 89.6 fL 79.4-94.8 MEAN CORPUSCULAR HEMOGLOBIN (BEAKER) (test 29.1 pg 25.6-32.2 gxft=191) MEAN CORPUSCULAR HEMOGLOBIN CONC (BEAKER) (test 32.4 GM/DL 32.2-35.5 mnlw=815) RED CELL DISTRIBUTION WIDTH (BEAKER) (test 12.6 % 11.7-14.4 ewlx=385) PLATELET COUNT (BEAKER) (test slar=309) 210 K/CU MM 150-450 MEAN PLATELET VOLUME (BEAKER) (test svfa=928) 10.3 fL 9.4-12.3 NUCLEATED RED BLOOD CELLS (BEAKER) (test 0 /100 WBC 0-0 mflc=452) AFB Culture and [id number] 13:24:00Specimen/Source: Wound/ PACEMAKERCollected: 09/05/2017 19:45 Status: Final Last Updated: 2017 13:24 SRA-Lbwhv-Sdmauwgsylhw (Final) (Final) 09/07/17 No acid fast bacill seen on direct smear Culture Result (Final) (Final) 11/01/17 No growth of AFB at six (6) weeksFungus Culture with [id number] 12:12: 00Specimen/Source: Wound/PACEMAKERCollected: 09/05/2017 19:45 Status: Final Last Updated: 10/22/2017 12:12 Fungal Smear Result (Final) (Final) 09/06/17 No yeast or hyphae seen Culture Result (Final) (Final) 10/22/17 No fungus isolated at 6 weeksCulture, Blood [id number] 08:23:00Specimen: BloodCollected: 09/04/2017 20:30 Status: Final Last Updated: 09/10/2017 08: 23 Culture Result (Final) (Final) No Growth After 5 DaysCulture, Blood [id number] 08:23:00Specimen: BloodCollected: 09/04/2017 20:15 Status: Final Last Updated: 09/10/2017 08:23 Culture Result (Final) (Final) No Growth After 5 DaysCulture, Wound [id number] 08:52:00Specimen: WoundCollected: 09/05/2017 19:45 Status: Final Last Updated: 09/08/2017 08: 52 Gram Stain (Final) (Final) 09/06/17 No organisms seen, Few WBC's Culture Result (Final) (Final) 09/08/17 Anaerobic culture:No anaerobes isolated at 3 days Isolate (Final) (Final) 09/07/17Few Staph-coag positive Isolate Staph-coag positive JERMAINE (mcg/ml) Amoxicillin/Clav (AUG)<=4/2 Susceptible Ampicillin (AM) >8 Resistant Ampicillin/Sulb (A/S) <=8/4 Susceptible Cefazolin (CFZ) <=4 Susceptible Ceftriaxone (EQUIPMENT OPERAT0R) <=4 Susceptible Chloramphenicol (C) <=8 Susceptible Ciprofloxacin (CP) <=1 Susceptible Clindamycin (CM) 0.5 Susceptible Erythromycin (E) <=0.25 Susceptible Gentamicin (GM) <=1 Susceptible Imipenem (IMP) <=4 Susceptible Levofloxacin (LEV) <=0.5 Susceptible Linezolid (LNZ) 4 Susceptible Oxacillin (OX1) 0.5 Susceptible Penicillin (P) >8 Resistant Rifampin ( RA) <=1 Susceptible Tetracycline (TE) <=1 Susceptible Trimethoprim/Sulfa <=0.5/9.Susceptible (SXT) 5 Vancomycin (VA) 2 SusceptibleRenal [id number] 08:51: 00 Test Item Value Reference Range [...] race is not provided, and the patient isAfrican-Omani, multiply by 1.212. If sex is not [...] the National Kidney Foundation,http://nkdep.nih .gov CBC with [id number] 07:39:00 Test Item Value Reference Range Comments [...] Lymph Abs (test code=ALYMPH) 1.7 K/cumm 0.5-4.6 Hamblen Abs (test code=AMONO) 0.3 K/cumm 0.0-1.2 Eos Abs (test code=AEOS) 0.29 K/cumm 0.00-0.74 Baso Abs (test code=ABASO) 0.0 K/cumm 0.00-0.21 Vancomycin, [id number] 12:33:00 Test Item Value Reference Range Comments Vanco, Trou (test code=VANTR) 7.9 ug/mL 10.0-20.0 Magnesium, [id number] 06:37:00 Test Item Value Reference Range Comments Magnesium (test code=MG) 2.4 mg/dL 1.7-2.5 Renal [id number] 06:29:00 Test Item Value Reference Range Comments [...] race is not provided, and the patient isAfrican-Omani, multiply by 1.212. If sex is not [...] the National Kidney Foundation,http://nkdep.nih .gov BHCG, Serum, [id number] 06:26:00 Test Item Value Reference Range Comments Preg Qual [Se] (test code=BSHCG) Negative Negative CBC with [id number] 06:24:00 Test Item Value Reference Range Comments [...] Lymph Abs (test code=ALYMPH) 1.6 K/cumm 0.5-4.6 Hamblen Abs (test code=AMONO) 0.4 K/cumm 0.0-1.2 Eos Abs (test code=AEOS) 0.18 K/cumm 0.00-0.74 Baso Abs (test code=ABASO) 0.0 K/cumm 0.00-0.21 XR CHEST 1 [id number] 16:29:55XR CHEST 1 VIEWLOCATION: [id number]: None.INDICATION: REVIEW PICC LINE PLACEMENTDISCUSSION:AP chest and [...] TSH (test code=TSH) 3.44 mIU/mL 0.270-4.200 Lipid [id number] 05:47:00 Test Item Value Reference Range Comments Cholesterol (test 160 mg/dL 0-200 code=CHOL) Triglycerides (test 126 mg/dL 9-200 code=TRIG) HDL (test code=HDL) 35 mg/dL 50-60 Chol/HDL (test 4.6 Ratio 0.0-4.4 code=CHOLPHDL) LDL, Calculated (test 100 0-130 (NOTE)RISK OF HEART code=LDLC) DISEASEPublished by [place] Heart AssociationAnalyte Optimal Boderline Increased RiskCHOL <200 200-239 >240TRIG <150 150-199 >200HDL Male: >60 <40HDL Female: >60 <50LDL <100 130-159 >160LDL NEAR OPTIMAL IS 100-129 VLDL (test code=VLDL) 25 mg/dL 5-40 LDL/HDL (test code=LDLPHDL) 3 Basic Metabolic [id number] 05:47:00 Test Item Value Reference Range Comments [...] race is not provided, and the patient isAfrican-[place]mani, multiply by 1.212. If sex is not provided, and thepatient is female, multiply by 0.742. Results for patients <18 years ofage have not been validated by the MDRD study and should be interpretedwith caution.eGFR Result Interpretation:eGFR > or=60 is in the Normal RangeeGFR < 60 may mean kidney diseaseeGFR < 15 may mean kidney failureRanges recommended by the National Kidney Foundation,http://nkdep.nih .gov Magnesium, [id number] 05:47:00 Test Item Value Reference Range Comments Magnesium (test code=MG) 2.3 mg/dL 1.7-2.5 CBC with [id number] 05:36:00 Test Item Value Reference Range Comments [...] Lymph Abs (test code=ALYMPH) 2.2 K/cumm 0.5-4.6 Hamblen Abs (test code=AMONO) 0.3 K/cumm 0.0-1.2 Eos Abs (test code=AEOS) 0.24 K/cumm 0.00-0.74 Baso Abs (test code=ABASO) 0.0 K/cumm 0.00-0.21 Partial Thromboplastin [id number] 21:26:00 Test Item Value Reference Range Comments aPTT (test code=PTT) 29.00 seconds 24.39-37.25 Prothrombin [id number] 21:26:00 Test Item Value Reference Range Comments PT (test code=PT) 10.70 seconds 9.78-13.35 INR (test code=INR) 0.95 Ratio 0.6-1.2 Comprehensive Metabolic [id number] 21:23:00 Test Item Value Reference Range Comments [...] race is not provided, and the patient isAfrican-Omani, multiply by 1.212. If sex is not [...] the National Kidney Foundation,http://nkdep.nih .gov CBC with [id number] 21:16:00 Test Item Value Reference Range Comments [...] Lymph Abs (test code=ALYMPH) 2.2 K/cumm 0.5-4.6 Hamblen Abs (test code=AMONO) 0.4 K/cumm 0.0-1.2 Eos Abs (test code=AEOS) 0.17 K/cumm 0.00-0.74 Baso Abs (test code=ABASO) 0.1 K/cumm 0.00-0.21
[2019-09-14] MEDS ORDERED: ONDANSETRON 4 MG/2 ML VIAL ONE (23:15)
[2019-09-14] MEDS ORDERED: FENTANYL CITR 100 MCG/2 ML ONE (23:15)
[2019-09-14 23:43] LABS: Absolute Lymphocytes (CBC) 1.9 K/uL (0.7-4.9); Hematocrit 41.7 % (36.0-45.0); Lymphocytes % 30.1 % (15.3-44.8); MPV 8.6 fL (7.6-11.3); RBC Red Blood Cell Count 4.83 M/uL (3.86-4.86)
[2019-09-15 00:25] LABS: Urine Bacteria <20 /HPF (<20); Urine Culture Reflex Order NOT NEEDED; Urine RBC <5 /HPF (NONE SEEN)
[2019-09-15 00:26] LABS: Urine Blood TRACE (NEG); Urine Glucose NEGATIVE (NEG); Urine Protein NEGATIVE (NEG); Urine Specific Gravity 1.015 (1.005-1.030)
[2019-09-15 00:32] LABS: ALT/SGPT 22 U/L (12-78); AST/SGOT 15 U/L (15-37); Albumin 3.9 g/dL (3.4-5.0); Alkaline Phosphatase 135 U/L (45-117); BUN Blood Urea Nitrogen 14 mg/dL (7-18); Bicarbonate 29 mmol/L (21-32); Bilirubin Direct < 0.1 mg/dL (0-0.2); Bilirubin Total 0.2 mg/dL (0.2-1.0); Glucose Level 107 mg/dL (74-106); Lipase 167 U/L (73-393); Potassium 3.4 mmol/L (3.5-5.1); Protein, Total 7.8 g/dL (6.4-8.2); Sodium Level 142 mmol/L (136-145)
--- NOTE | 2019-09-15 00:46 | ER ---
Nurse's Notes [facility] Name: Jenni Draper Age: 39 yrs Sex: Female : 1980 Arrival Date: 09/14/2019 Time: 22:26 Bed 7 Private MD: Diagnosis: Constipation;Generalized abdominal pain Presentation: 09/14 22:36 Presenting complaint: Patient states: pain in low back, LUQ, \T\ RLQ x 4 days with N/V. aa1 Transition of care: patient was not received from another setting of care. Onset of symptoms was September 11, 2019. Risk Assessment: Do you want to hurt yourself or someone else? Patient reports no desire to harm self or others. Initial Sepsis Screen: Does the patient meet any 2 criteria? HR > 90 bpm. Does the patient have a suspected source of infection? Yes: Acute abdominal pain. Care prior to arrival: None. 22:36 Method Of Arrival: Ambulatory aa1 22:36 Acuity: LYUBOV 3 aa1 Triage Assessment: 22:42 General: Appears in no apparent distress. uncomfortable, Behavior is calm, cooperative, aa1 appropriate for age. 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 LMP N/A - Hysterectomy aa1 Historical: - Allergies: 22:42 Adhesives; aa1 22:42 Aspirin; aa1 22:42 Bactrim; aa1 22:42 Benadryl; aa1 22:42 Ciprofloxacin; aa1 22:42 Clindamycin; aa1 22:42 Codeine; aa1 22:42 Detrol; aa1 22:42 Diltiazem; aa1 22:42 GABAPENTIN; aa1 22:42 Iodine; aa1 22:42 Latex, Natural Rubber; aa1 22:42 Morphine; aa1 22:42 PENICILLINS; aa1 22:42 Seroquel; aa1 22:42 Sulfa (Sulfonamide Antibiotics); aa1 22:42 tramadol; aa1 - Home Meds: 22:42 Abilify 10 mg Oral tab 1 tab once daily [Active]; Abilify 5 mg Oral tab 1 tab nightly aa1 [Active]; albuterol sulfate 1.25 mg/3 mL Inhl nebu 3 mL 3 times per day [Active]; apixaban 5 mg BID Oral [Active]; atorvastatin 10 mg Oral tab 1 tab once daily [Active]; benztropine 1 mg Oral tab 1 tab 2 times per day [Active]; Breo Ellipta 100-25 mcg/dose inhalation dsdv 1 puff once daily [Active]; buspirone 15 mg Oral tab 1 tab 2 times per day [Active]; Coreg 25 mg Oral tab 1 tab 2 times per day [Active]; Daliresp 500 mcg Oral tab 1 tab once daily [Active]; digoxin 125 mcg Oral tab 1 tab once daily [Active]; Eliquis 5 mg Oral tab once a day [Active]; esomeprazole magnesium 40 mg Oral cpDR 1 cap once daily [Active]; Keppra 1,000 mg Oral tab 1 tab every 12 hours [Active]; ketorolac 10 mg Oral tab 1 tab every 6 hours [Active]; levothyroxine 150 mcg tab 1 tab once daily [Active]; loratadine 10 mg Oral tab 1 tab once daily [Active]; methocarbamol 500 mg Oral tab 1 tabs 4 times per day [Active]; Ranexa 500 mg Oral Tb12 1 tab 2 times per day [Active]; Spiriva with HandiHaler 18 mcg inhalation CpDv 1 cap once daily [Active]; Topamax 100 mg Oral tab 2 tabs 2 times per day [Active]; venlafaxine 150 mg Oral cp24 1 cap once daily [Active]; Xanax 0.25 mg Oral tab 1 tab PRN [Active]; - PMHx: 22:42 Anemia; Anxiety; Asthma; Back pain; Bronchitis; dvt to left leg; Hypertension; aa1 HYPOGLYCEMIA; Hypothyroidism; internal heart monitor; Kidney stones; mitral valve prolapse; Myocardial infarction; neuropathy; Pacemaker; Seizures; sick sinus syndrome; TIA; Upper Resp Infection; Depression; Migraines; Atrial Fib; - PSHx: 22:42 Hysterectomy; Cholecystectomy; aa1 - Immunization history:: Flu vaccine is not up to date. - Social history:: Smoking status: Patient/guardian denies using tobacco. - Ebola Screening: : Patient denies exposure to infectious person Patient denies travel to an Ebola-affected area in the 21 days before illness onset. Screenin:41 Abuse screen: Denies threats or abuse. Nutritional screening: No deficits noted. jd3 Tuberculosis screening: No symptoms or risk factors identified. Fall Risk Ambulatory Aid- None/Bed Rest/Nurse Assist (0 pts). Gait- Normal/Bed Rest/Wheelchair (0 pts) Mental Status- Oriented to own ability (0 pts). Total Jolly Fall Scale indicates No Risk (0-24 pts). Assessment: 22:40 General: Appears in no apparent distress. uncomfortable, Behavior is calm, cooperative, jd3 appropriate for age. Pain: Complains of pain in left upper quadrant and right lower quadrant Quality of pain is described as sharp, tender. Neuro: Level of Consciousness is awake, alert, obeys commands, Oriented to person, place, time, situation. Cardiovascular: Denies chest pain, Capillary refill < 3 seconds Patient's skin is warm and dry. Respiratory: Airway is patent Respiratory effort is even, unlabored, Respiratory pattern is regular, symmetrical, Breath sounds are clear bilaterally. Denies cough, shortness of breath. GI: Abdomen is round non-distended, Bowel sounds present X 4 quads. Abd is soft and non tender Reports nausea, vomiting, Patient currently denies constipation, diarrhea. : No signs and/or symptoms were reported regarding the genitourinary system. EENT: No signs and/or symptoms were reported regarding the EENT system. Derm: Skin is intact, Skin is dry, Skin is normal, Skin temperature is warm. Musculoskeletal: Circulation, motion, and sensation intact. Range of motion: intact in all extremities. 23:45 Reassessment: Patient appears in no apparent distress at this time. No changes from jd3 previously documented assessment. Patient and/or family updated on plan of care and expected duration. Pain level reassessed. Patient is alert, oriented x 3, equal unlabored respirations, skin warm/dry/pink. 09/15 00:31 Reassessment: Patient appears in no apparent distress at this time. Patient and/or jd3 family updated on plan of care and expected duration. Pain level reassessed. Patient is alert, oriented x 3, equal unlabored respirations, skin warm/dry/pink. awaiting results and disposition. 01:04 Reassessment: Patient appears in no apparent distress at this time. Patient and/or jd3 family updated on plan of care and expected duration. Pain level reassessed. Patient is alert, oriented x 3, equal unlabored respirations, skin warm/dry/pink. reported understanding of discharge instructions. Patient states feeling better. Vital Signs: 09/14 22:42 BP 116 / 82; Pulse 111; Resp 18; Temp 98.8; Pulse Ox 100% on R/A; Weight 49.44 kg; aa1 Height 4 ft. 10 in. (147.32 cm); Pain 9/10; 23:44 BP 103 / 73; Pulse 98; Resp 18 S; Pulse Ox 98% on R/A; jd3 09/15 00:31 BP 94 / 69; Pulse 98; Resp 19 S; Pulse Ox 98% on R/A; jd3 09/14 22:42 Body Mass Index 22.78 (49.44 kg, 147.32 cm) aa1 ED Course: 09/14 22:26 Patient arrived in ED. cf2 22:37 Triage completed. aa1 22:40 Fritz Cho, RN is Primary Nurse. jd3 22:42 Patient has correct armband on for positive identification. Placed in gown. Bed in low jd3 position. Call light in reach. Side rails up X 1. Adult w/ patient. 22:42 Arm band placed on. jd3 22:43 Emory Barber PA is PHCP. jr8 22:43 Caio Aceves MD is Attending Physician. jr8 23:08 Accessed ,peripheral vein via ultrasound, utilizing static ultrasound technique using jd3 ,sterile technique, per hospital protocol. Clean \T\ dry. Dressing intact. Good blood return. Flushes easily. 22 G to the right FA. 23:43 CT Abd/Pelvis - Without Contrast In Process Unspecified. EDMS 09/15 01:03 No provider procedures requiring assistance completed. IV discontinued, intact, jd3 bleeding controlled, No redness/swelling at site. Pressure dressing applied. Administered Medications: 09/14 23:21 Drug: fentaNYL (PF) 50 mcg Route: IVP; Site: right forearm; jd3 09/15 00:20 Follow up: Response: No adverse reaction; RASS: Alert and Calm (0) jd3 09/14 23:22 Drug: Zofran 4 mg Route: IVP; Site: right forearm; jd3 09/15 00:20 Follow up: Response: No adverse reaction jd3 Outcome: 00:44 Discharge ordered by . jr8 01:03 Discharged to home ambulatory, with family. jd3 01:03 Condition: stable 01:03 Discharge instructions given to patient, family, Instructed on discharge instructions, follow up and referral plans. medication usage, Demonstrated understanding of instructions, follow-up care, medications, Prescriptions given X 1. 01:05 Patient left the ED. jd3 Signatures: Dispatcher [employer] EDMS Tran Forte RN RN aa1 Emory Barber PA PA jr8 Fritz Cho RN RN jd3 Leonor Young 2
--- NOTE | 2019-09-15 00:46 | EDPHYS ---
Physician Documentation [facility] Name: Jenni Draper Age: 39 yrs Sex: Female : 1980 Arrival Date: 09/14/2019 Time: 22:26 Bed 7 Private MD: ED Physician Caio Aceves HPI: 09/14 23:55 This 39 yrs old Female presents to ER via Ambulatory with complaints of jr8 Abdominal Pain, Back Pain, Nausea/Vomiting. 23:55 The patient presents with abdominal pain in the lower abdomen. Onset: The jr8 symptoms/episode began/occurred acutely, today. The symptoms radiate to back. Associated signs and symptoms: Pertinent positives: nausea and vomiting. The symptoms are described as stabbing. Modifying factors: The symptoms are alleviated by nothing, the symptoms are aggravated by nothing. Severity of pain: At its worst the pain was moderate in the emergency department the pain is unchanged. The patient has not experienced similar symptoms in the past. The patient has not recently seen a physician. 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 N/A - Hysterectomy aa1 Historical: - Allergies: 22:42 Adhesives; aa1 22:42 Aspirin; aa1 22:42 Bactrim; aa1 22:42 Benadryl; aa1 22:42 Ciprofloxacin; aa1 22:42 Clindamycin; aa1 22:42 Codeine; aa1 22:42 Detrol; aa1 22:42 Diltiazem; aa1 22:42 GABAPENTIN; aa1 22:42 Iodine; aa1 22:42 Latex, Natural Rubber; aa1 22:42 Morphine; aa1 22:42 PENICILLINS; aa1 22:42 Seroquel; aa1 22:42 Sulfa (Sulfonamide Antibiotics); aa1 22:42 tramadol; aa1 - Home Meds: 22:42 Abilify 10 mg Oral tab 1 tab once daily [Active]; Abilify 5 mg Oral tab 1 tab nightly aa1 [Active]; albuterol sulfate 1.25 mg/3 mL Inhl nebu 3 mL 3 times per day [Active]; apixaban 5 mg BID Oral [Active]; atorvastatin 10 mg Oral tab 1 tab once daily [Active]; benztropine 1 mg Oral tab 1 tab 2 times per day [Active]; Breo Ellipta 100-25 mcg/dose inhalation dsdv 1 puff once daily [Active]; buspirone 15 mg Oral tab 1 tab 2 times per day [Active]; Coreg 25 mg Oral tab 1 tab 2 times per day [Active]; Daliresp 500 mcg Oral tab 1 tab once daily [Active]; digoxin 125 mcg Oral tab 1 tab once daily [Active]; Eliquis 5 mg Oral tab once a day [Active]; esomeprazole magnesium 40 mg Oral cpDR 1 cap once daily [Active]; Keppra 1,000 mg Oral tab 1 tab every 12 hours [Active]; ketorolac 10 mg Oral tab 1 tab every 6 hours [Active]; levothyroxine 150 mcg tab 1 tab once daily [Active]; loratadine 10 mg Oral tab 1 tab once daily [Active]; methocarbamol 500 mg Oral tab 1 tabs 4 times per day [Active]; Ranexa 500 mg Oral Tb12 1 tab 2 times per day [Active]; Spiriva with HandiHaler 18 mcg inhalation CpDv 1 cap once daily [Active]; Topamax 100 mg Oral tab 2 tabs 2 times per day [Active]; venlafaxine 150 mg Oral cp24 1 cap once daily [Active]; Xanax 0.25 mg Oral tab 1 tab PRN [Active]; - PMHx: 22:42 Anemia; Anxiety; Asthma; Back pain; Bronchitis; dvt to left leg; Hypertension; aa1 HYPOGLYCEMIA; Hypothyroidism; internal heart monitor; Kidney stones; mitral valve prolapse; Myocardial infarction; neuropathy; Pacemaker; Seizures; sick sinus syndrome; TIA; Upper Resp Infection; Depression; Migraines; Atrial Fib; - PSHx: 22:42 Hysterectomy; Cholecystectomy; aa1 - Immunization history:: Flu vaccine is not up to date. - Social history:: Smoking status: Patient/guardian denies using tobacco. - Ebola Screening: : Patient denies exposure to infectious person Patient denies travel to an Ebola-affected area in the 21 days before illness onset. ROS: 23:55 Eyes: Negative for injury, pain, redness, and discharge, ENT: Negative for injury, jr8 pain, and discharge, Neck: Negative for injury, pain, and swelling, Cardiovascular: Negative for chest pain, palpitations, and edema, Respiratory: Negative for shortness of breath, cough, wheezing, and pleuritic chest pain, Back: Negative for injury and pain, MS/Extremity: Negative for injury and deformity, Skin: Negative for injury, rash, and discoloration, Neuro: Negative for headache, weakness, numbness, tingling, and seizure. 23:55 Abdomen/GI: Positive for abdominal pain, nausea and vomiting, Negative for diarrhea, constipation, abdominal cramps, abdominal distension. Exam: 23:55 Eyes: Pupils equal round and reactive to light, extra-ocular motions intact. Lids and jr8 lashes normal. Conjunctiva and sclera are non-icteric and not injected. Cornea within normal limits. Periorbital areas with no swelling, redness, or edema. ENT: Nares patent. No nasal discharge, no septal abnormalities noted. Tympanic membranes are normal and external auditory canals are clear. Oropharynx with no redness, swelling, or masses, exudates, or evidence of obstruction, uvula midline. Mucous membranes moist. Neck: Trachea midline, no thyromegaly or masses palpated, and no cervical lymphadenopathy. Supple, full range of motion without nuchal rigidity, or vertebral point tenderness. No Meningismus. Cardiovascular: Regular rate and rhythm with a normal S1 and S2. No gallops, murmurs, or rubs. Normal PMI, no JVD. No pulse deficits. Respiratory: Lungs have equal breath sounds bilaterally, clear to auscultation and percussion. No rales, rhonchi or wheezes noted. No increased work of breathing, no retractions or nasal flaring. Back: No spinal tenderness. No costovertebral tenderness. Full range of motion. Skin: Warm, dry with normal turgor. Normal color with no rashes, no lesions, and no evidence of cellulitis. MS/ Extremity: Pulses equal, no cyanosis. Neurovascular intact. Full, normal range of motion. Neuro: Awake and alert, GCS 15, oriented to person, place, time, and situation. Cranial nerves II-XII grossly intact. Motor strength 5/5 in all extremities. Sensory grossly intact. Cerebellar exam normal. Normal gait. 23:55 Abdomen/GI: Inspection: abdomen appears normal, Bowel sounds: active, all quadrants, Palpation: soft, in all quadrants, mild abdominal tenderness, in the right lower quadrant and left lower quadrant, mass, is not appreciated, rebound tenderness, is not appreciated, voluntary guarding, is not appreciated, involuntary guarding, is not appreciated, no appreciated organomegaly, Indicators: McBurney's point is not tender, Dunaway's sign is negative, Rovsing's sign is negative, Liver: tenderness, is not appreciated. Vital Signs: 22:42 BP 116 / 82; Pulse 111; Resp 18; Temp 98.8; Pulse Ox 100% on R/A; Weight 49.44 kg; aa1 Height 4 ft. 10 in. (147.32 cm); Pain 9/10; 23:44 BP 103 / 73; Pulse 98; Resp 18 S; Pulse Ox 98% on R/A; jd3 09/15 00:31 BP 94 / 69; Pulse 98; Resp 19 S; Pulse Ox 98% on R/A; jd3 09/14 22:42 Body Mass Index 22.78 (49.44 kg, 147.32 cm) aa1 MDM: 09/14 22:46 Patient medically screened. jr8 09/15 00:40 Data reviewed: vital signs, nurses notes, lab test result(s), radiologic studies, CT jr8 scan. Data interpreted: Pulse oximetry: on room air is 98 %. Interpretation: normal. Counseling: I had a detailed discussion with the patient and/or guardian regarding: the historical points, exam findings, and any diagnostic results supporting the discharge/admit diagnosis, lab results, radiology results, the need for outpatient follow up, a family practitioner, to return to the emergency department if symptoms worsen or persist or if there are any questions or concerns that arise at home. Response to treatment: the patient's symptoms have markedly improved after treatment. Special discussion: Based on the patient's Hx, exam, and Dx evaluation, there is no indication for emergent surgery or inpatient Tx. It is understood by the patient/guardian that if the Sx's persist or worsen they need to return immediately for re-evaluation. 09/14 22:36 Order name: Basic Metabolic Panel; Complete Time: 00:36 aa1 09/14 22:36 Order name: CBC with Diff; Complete Time: 23:53 aa1 09/14 22:36 Order name: Creatinine for Radiology; Complete Time: 00:36 aa1 09/14 22:36 Order name: Hepatic Function; Complete Time: 00:36 aa1 09/14 22:36 Order name: Lipase; Complete Time: 00:36 aa1 09/14 23:12 Order name: Urine Microscopic Only; Complete Time: 00:36 8 09/14 22:36 Order name: IV Saline Lock; Complete Time: 23:10 aa 09/14 22:36 Order name: Labs collected and sent; Complete Time: 23:10 aa 09/14 22:36 Order name: Urine Dipstick-Ancillary (obtain specimen); Complete Time: 23:10 [facility] 09/14 23:10 Order name: CT Abd/Pelvis - Without Contrast [facility] 09/14 23:23 Order name: Urine Dipstick--Ancillary (enter results); Complete Time: 00:36 cm6 Administered Medications: 09/14 23:21 Drug: fentaNYL (PF) 50 mcg Route: IVP; Site: right forearm; j 09/15 00:20 Follow up: Response: No adverse reaction; RASS: Alert and Calm (0) j 09/14 23:22 Drug: Zofran 4 mg Route: IVP; Site: right forearm; jd3 09/15 00:20 Follow up: Response: No adverse reaction jd3 Disposition: 07:57 Co-signature as Attending Physician, Caio Aceves MD I agree with the assessment and taty plan of care. Disposition: 09/15/19 00:44 Discharged to Home. Impression: Constipation, Generalized abdominal pain. - Condition is Stable. - Discharge Instructions: Constipation, Adult. - Prescriptions for Miralax 17 gram/dose Oral - take 1 packet by ORAL route once daily dilute powder in 8 ounces of water or juice; 1 box. - Medication Reconciliation Form, Thank You Letter, Antibiotic Education, Prescription Opioid Use form. - Follow up: Private Physician; When: 2 - 3 days; Reason: Recheck today's complaints, Continuance of care, Re-evaluation by your physician. - Problem is new. - Symptoms have improved. Signatures: Dispatcher [employer] EDTran Arreguin RN RN aa1 Caio Aceves MD MD cha Roszak, Josh, PA PA jr8 Fritz Cho RN RN jd3 Corrections: (The following items were deleted from the chart) 01:05 00:44 09/15/2019 00:44 Discharged to Home. Impression: Constipation; Generalized jd3 abdominal pain. Condition is Stable. Forms are Medication Reconciliation Form, Thank You Letter, Antibiotic Education, Prescription Opioid Use. Follow up: Private Physician; When: 2 - 3 days; Reason: Recheck today's complaints, Continuance of care, Re-evaluation by your physician. Problem is new. Symptoms have improved. jr8
[2019-09-15 02:57] VITALS: TEMP 98.8
[2019-09-15 02:58] VITALS: O2SAT 98
[2019-09-15 02:59] VITALS: BP 94/69
--- NOTE | 2019-09-16 10:41 | RAD REPORT ---
EXAM DESCRIPTION: Abdomen Pelvis Wo Contrast CLINICAL HISTORY: ABD PAIN TECHNIQUE: Contiguous axial images obtained through the abdomen and pelvis without IV contrast. Rea nal and sagittal reformatted images were provided. This exam was performed according to our departmental dose-optimization program, which includes autom ated exposure control, adjustment of the mA and/or kV according to patient size and/or use of iterati ve reconstruction technique. COMPARISON: 06/10/2019 FINDINGS: Lung bases: Clear Liver: Grossly unremarkable Gallbladder and biliary system: There has been a cholecystectomy. Pancreas: Grossly unremarkable Spleen: Grossly unremarkable Adrenals: Unremarkable Kidneys: Punctate bilateral calculi. No hydronephrosis. Bowel: Moderate stool. No obstruction. No appreciable mucosal thickening. Appendix: Normal caliber appendix best seen on sagittal reformatted images coursing anterior to the i liopsoas muscle. No findings to suggest acute appendicitis. Urinary bladder: Unremarkable Reproductive: There has been a hysterectomy. No adnexal cysts or masses are identified. Lymph nodes: No pathologically enlarged lymph nodes. Peritoneum: No focal fluid collection. No free air. Vessels: No abdominal aortic aneurysm. Abdominal wall: Unremarkable Bones: Unremarkable IMPRESSION: 1. Bilateral nonobstructive renal calculi. 2. Moderate stool. No bowel obstruction. Electronically signed by: Clovis Escamilla MD 09/14/2019 11:55 PM TENTER Due to temporary technical issues with the PACS/Fluency reporting system, reports are being signed by the in house radiologist as a courtesy to ensure prompt reporting. The interpreting radiologist is f ully responsible for the content of the report.
== END 2019-09-15 01:05 | disposition home or self-care (01) ==
LOC: ER 22:24
DX: K59.00 Constipation, unspecified (principal); I10 Essential (primary) hypertension; E03.9 Hypothyroidism, unspecified; G40.909 Epilepsy, unspecified, not intractable, without status epilepticus; I25.2 Old myocardial infarction; F32.9 Major depressive disorder, single episode, unspecified; I48.91 Unspecified atrial fibrillation; Z79.01 Long term (current) use of anticoagulants; Z88.0 Allergy status to penicillin; Z88.1 Allergy status to other antibiotic agents; Z88.2 Allergy status to sulfonamides; Z88.3 Allergy status to other anti-infective agents; Z88.5 Allergy status to narcotic agent; Z88.6 Allergy status to analgesic agent; Z88.8 Allergy status to other drugs, medicaments and biological substances; Z95.0 Presence of cardiac pacemaker; Z91.040 Latex allergy status; Z91.048 Other nonmedicinal substance allergy status
CPT/HCPCS: 85025; 80048; 36415; 80076; 83690; 74176; 96375; 96374; 99284; J3010; J2405; 81003; 81015

== ENCOUNTER 2019-10-21 03:11 | Emergency (ER) | payer MEDICAID ==
--- OUTSIDE RECORDS SUMMARY | 2019-10-21 03:15 | XMS REPORT ---
:[address] [facility] Address [address] [place] [address] Care Team Providers Name Role Phone MILTONTAMARA [...] Facility Department ID 2017-09-06 2017-09-08 [id number] 10:12:00 02:32:00 LYLY Results Test Description Test Time Test Comments Text Results Atomic Results Result Comments POCT-GLUCOSE METER 2018-08-21 10:22:00 Test Item Value Reference Range Comments POC-GLUCOSE METER (BEAKER) (test 102 mg/dL 70-110 TESTED AT [facility] [address] [facility] wvfz=[id number]) [facility] [address] MR, MRA, BRAIN, WITHOUT [id number] 09:32:00Reason for exam:-> Ischemic Stroke EvaluationFINAL REPORT MRA Head CLINICAL HISTORY: Ischemic Stroke TECHNIQUE: MRA of the head utilizing 3-D time-of- flight technique, with 3-D reconstructions. COMPARISON: None FINDINGS: There is no evidence of intracranial aneurysm, focal stenosis, or major branch vessel occlusion. IMPRESSION: No evidence for a major [place] proximal branch vessel occlusion. MRA Neck CLINICAL HISTORY: Ischemic Stroke TECHNIQUE : MRA of the neck utilizing 2-D and 3-D atps-jf-tfantz technique, with 3-D reconstructions. COMPARISON: None FINDINGS: The carotid arteries in the neck are patent including their bifurcations. There is antegrade flow in the vertebral arteries in the neck. IMPRESSION: No evidence of hemodynamically significant stenosis in the cervical carotid or vertebral arteries by NASCET criteria. Signed: Santos Neff MDReport Verified Date/Time: 08/21/2018 09:32: 09 Reading Location: [address] Neuro Reading Room MR, MRA, NECK, WITHOUT IV [id number] 09:32:00Reason for exam:->Ischemic Stroke EvaluationFINAL REPORT MRA Head CLINICAL HISTORY: Ischemic Stroke TECHNIQUE: MRA of the head utilizing 3-D hezn-vc-bvdctw technique, with 3-D reconstructions. COMPARISON: None FINDINGS: There is no evidence of intracranial aneurysm, focal stenosis, or major branch vessel occlusion. IMPRESSION: No evidence for a major [place] proximal branch vessel occlusion. MRA Neck CLINICAL HISTORY: Ischemic Stroke TECHNIQUE: MRA of the neck utilizing 2-D and 3-D vkzg-ko-yneggv technique, with 3-D reconstructions. COMPARISON: None FINDINGS: The carotid arteries in the neck are patent including their bifurcations. There is antegrade flow in the vertebral arteries in the neck. IMPRESSION: No evidence of hemodynamically significant stenosis in the cervical carotid or vertebral arteries by NASCET criteria. Signed: Santos Neff MDRiman Verified Date/Time: 08/21/2018 09:32:09 Reading Location: [address] Neuro Reading Room MR, BRAIN, WITHOUT [id number] 09:25: 00Reason for exam:->Ischemic Stroke EvaluationFINAL REPORT [...] Verified Date/Time: 08/21/2018 09:25:25 Reading Location : [facility] C013V Neuro Reading Room POCT-GLUCOSE [id number] 21:26:00 Test Item Value Reference Range Comments POC-GLUCOSE METER (BEAKER) 119 mg/dL 70-110 TESTED AT [address] (test zayp=2131) [facility] [address] POCT-GLUCOSE [id number] 18:03:00 Test Item Value Reference Range Comments POC-GLUCOSE METER (BEAKER) 119 mg/dL 70-110 TESTED AT [address] (test doyo=5196) [place] [id number] POCT-GLUCOSE [id number] 12:39:00 Test Item Value Reference Range Comments POC-GLUCOSE METER (BEAKER) 120 mg/dL 70-110 TESTED AT [address] (test jqof=1131) [facility] [address] RAD, CHEST, 1 VIEW, NON [id number] 12:04:00Reason for exam:->To Locate Heart Device (Pacemaker)Should [...] MDReport Verified Date/Time: 08/20/2018 12:04:06 [facility] POCT-GLUCOSE [id number] 09:17:00 Test Item Value Reference Range Comments POC-GLUCOSE METER (BEAKER) 121 mg/dL 70-110 TESTED AT [address] (test jcjm=1291) [facility] [address] BASIC METABOLIC [id number] 06:56:00 Test Item Value Reference Range Comments SODIUM (BEAKER) (test 140 meq/L 136-145 sqqu=791) POTASSIUM (BEAKER) (test 4.0 meq/L 3.5-5.1 rbyu=665) CHLORIDE (BEAKER) (test 108 meq/L 98-107 mrtv=108) CO2 (BEAKER) (test 25 meq/L 22-29 fetl=670) BLOOD UREA NITROGEN 11 mg/dL 7-21 (BEAKER) (test hohm=060) CREATININE (BEAKER) (test 0.69 mg/dL 0.57-1.25 rlnh=899) GLUCOSE RANDOM (BEAKER) 94 mg/dL 70-105 (test ynig=964) CALCIUM (BEAKER) (test 9.5 mg/dL 8.4-10.2 qoqv=069) EGFR (BEAKER) (test 96 mL/min/1.73 sq m ESTIMATED GFR IS NOT vbof=8409) ACCURATE CREATININE CLEARANCE IN PREDICTING GLOMERULAR FILTRATION RATE. ESTIMATED GFR IS NOT APPLICABLE FOR DIALYSIS PATIENTS. POCT-GLUCOSE [id number] 21:09:00 Test Item Value Reference Range Comments POC-GLUCOSE METER (BEAKER) 109 mg/dL 70-110 TESTED AT [address] (test hoze=7785) [place] [id number] POCT-GLUCOSE [id number] 17:15:00 Test Item Value Reference Range Comments POC-GLUCOSE METER (BEAKER) 117 mg/dL 70-110 TESTED AT [address] (test diwo=0965) [place] [address] VITAMIN B12 AND [id number] 06:39:00 Test Item Value Reference Range Comments VITAMIN B12 (BEAKER) (test ubhw=230) 524 pg/mL 213-816 FOLATE (BEAKER) (test kmun=188) 13.5 ng/mL >=7.0 BASIC METABOLIC [id number] 05:48:00 Test Item Value Reference Range Comments SODIUM (BEAKER) (test 139 meq/L 136-145 damw=047) POTASSIUM (BEAKER) (test 4.0 meq/L 3.5-5.1 stlc=403) CHLORIDE (BEAKER) (test 107 meq/L 98-107 fads=944) CO2 (BEAKER) (test 24 meq/L 22-29 aqwx=956) BLOOD UREA NITROGEN 11 mg/dL 7-21 (BEAKER) (test ygcp=616) CREATININE (BEAKER) (test 0.72 mg/dL 0.57-1.25 njft=550) GLUCOSE RANDOM (BEAKER) 107 mg/dL 70-105 (test vlue=961) CALCIUM (BEAKER) (test 9.5 mg/dL 8.4-10.2 qxmu=917) EGFR (BEAKER) (test 91 mL/min/1.73 sq m ESTIMATED GFR IS NOT umtr=5736) ACCURATE CREATININE CLEARANCE IN PREDICTING GLOMERULAR FILTRATION RATE. ESTIMATED GFR IS NOT APPLICABLE FOR DIALYSIS PATIENTS. [id number] 15:42:00 Test Item Value Reference Range Comments RPR SCREEN (BEAKER) (test uazb=589) Nonreactive Nonreactive HEMOGLOBIN [id number] 09:14:00 Test Item Value Reference Range Comments HEMOGLOBIN A1C (BEAKER) (test ihzc=422) 5.3 % 4.3-6.1 TSH/FREE T4 IF [id number] 04:49:00 Test Item Value Reference Range Comments THYROID STIMULATING HORMONE (BEAKER) (test 3.18 uIU/mL 0.35-4.94 jgwl=406) BASIC METABOLIC [id number] 04:38:00 Test Item Value Reference Range Comments SODIUM (BEAKER) (test 139 meq/L 136-145 leog=587) POTASSIUM (BEAKER) (test 4.2 meq/L 3.5-5.1 Specimen slightly jklv=047) hemolyzed CHLORIDE (BEAKER) (test 107 meq/L 98-107 iesw=851) CO2 (BEAKER) (test 26 meq/L 22-29 tluy=240) BLOOD UREA NITROGEN 10 mg/dL 7-21 (BEAKER) (test nzaf=123) CREATININE (BEAKER) (test 0.73 mg/dL 0.57-1.25 Specimen slightly wjyc=440) hemolyzed GLUCOSE RANDOM (BEAKER) 104 mg/dL 70-105 (test cdld=068) CALCIUM (BEAKER) (test 9.7 mg/dL 8.4-10.2 qhgj=937) EGFR (BEAKER) (test 90 mL/min/1.73 sq m ESTIMATED GFR IS NOT mcix=1029) ACCURATE CREATININE CLEARANCE IN PREDICTING GLOMERULAR FILTRATION RATE. ESTIMATED GFR IS NOT APPLICABLE FOR DIALYSIS PATIENTS. LIPID [id number] 04:38:00 Test Item Value Reference Range Comments TRIGLYCERIDES (BEAKER) (test 121 mg/dL Specimen slightly hemolyzed wizk=933) CHOLESTEROL (BEAKER) (test 172 mg/dL Specimen slightly hemolyzed bdhp=473) HDL CHOLESTEROL (BEAKER) (test 36 mg/dL ziff=128) LDL CHOLESTEROL CALCULATED 112 mg/dL (BEAKER) (test xfex=950) Triglyceride Reference Range: Low Risk <150 Borderline 150- 199 High Risk 200-499 Very High Risk >=500Cholesterol Reference Range: Low Risk <200 Borderline 200-239 High Risk > 240HDL Cholesterol Reference Range: Low Risk >=60 High Risk <40LDL Cholesterol Reference Range: Optimal <100 Near Optimal 100-129 Borderline 130-159 High 160-189 Very High >=190HEPATIC FUNCTION [id number] 04:38:00 Test Item Value Reference Range Comments TOTAL PROTEIN (BEAKER) (test 6.9 gm/dL 6.0-8.3 Specimen slightly hemolyzed dusg=555) ALBUMIN (BEAKER) (test 3.8 g/dL 3.5-5.0 Specimen slightly hemolyzed rztd=1223) BILIRUBIN TOTAL (BEAKER) (test 0.3 mg/dL 0.2-1.2 Specimen slightly hemolyzed ejeh=905) BILIRUBIN DIRECT (BEAKER) (test 0.1 mg/dL 0.1-0.5 Specimen slightly hemolyzed dfdc=871) ALKALINE PHOSPHATASE (BEAKER) 95 U/L 40-150 (test syfm=759) AST (SGOT) (BEAKER) (test 20 U/L 5-34 Specimen slightly hemolyzed wkun=899) ALT (SGPT) (BEAKER) (test 13 U/L 6-55 Specimen slightly hemolyzed wriy=411) CBC (HEMOGRAM ONLY)2018-08-18 03:55:00 Test Item Value Reference Range Comments WHITE BLOOD CELL COUNT (BEAKER) (test tupm=935) 5.7 K/ L 3.5-10.5 RED BLOOD CELL COUNT (BEAKER) (test dasq=084) 4.44 M/ L 3.93-5.22 HEMOGLOBIN (BEAKER) (test snex=824) 12.9 GM/DL 11.2-15.7 HEMATOCRIT (BEAKER) (test fvou=832) 39.8 % 34.1-44.9 MEAN CORPUSCULAR VOLUME (BEAKER) (test gzix=525) 89.6 fL 79.4-94.8 MEAN CORPUSCULAR HEMOGLOBIN (BEAKER) (test 29.1 pg 25.6-32.2 nzjn=165) MEAN CORPUSCULAR HEMOGLOBIN CONC (BEAKER) (test 32.4 GM/DL 32.2-35.5 axzo=715) RED CELL DISTRIBUTION WIDTH (BEAKER) (test 12.6 % 11.7-14.4 qecz=428) PLATELET COUNT (BEAKER) (test nlbi=031) 210 K/CU MM 150-450 MEAN PLATELET VOLUME (BEAKER) (test isxw=024) 10.3 fL 9.4-12.3 NUCLEATED RED BLOOD CELLS (BEAKER) (test 0 /100 WBC 0-0 ubru=726) AFB Culture and [id number] 13:24:00Specimen/Source: Wound/ PACEMAKERCollected: 09/05/2017 19:45 Status: Final Last Updated: 2017 13:24 VGZ-Rnput-Dgudoszklmpr (Final) (Final) 09/07/17 No acid fast bacill seen on direct smear Culture Result (Final) (Final) 11/01/17 No growth of AFB at six (6) weeksFungus Culture with [id number] 12:12: 00Specimen/Source: Wound/PACEMAKERCollected: 09/05/2017 19:45 Status: Final Last Updated: 10/22/2017 12:12 Fungal Smear Result (Final) (Final) 09/06/17 No yeast or hyphae seen Culture Result (Final) (Final) 10/22/17 No fungus isolated at 6 weeksCulture, Blood [id number] 08:23:00Specimen: BloodCollected: 09/04/2017 20:30 Status: Final Last Updated: 09/10/2017 08: 23 Culture Result (Final) (Final) No Growth After 5 DaysCulture, Blood [id number] 08:23:00Specimen: BloodCollected: 09/04/2017 20:15 Status: Final Last Updated: 09/10/2017 08:23 Culture Result (Final) (Final) No Growth After 5 DaysCulture, Wound [id number] 08:52:00Specimen: WoundCollected: 09/05/2017 19:45 Status: Final Last Updated: 09/08/2017 08: 52 Gram Stain (Final) (Final) 09/06/17 No organisms seen, Few WBC's Culture Result (Final) (Final) 09/08/17 Anaerobic culture:No anaerobes isolated at 3 days Isolate (Final) (Final) 09/07/17Few Staph-coag positive Isolate Staph-coag positive JERMAINE (mcg/ml) Amoxicillin/Clav (AUG)<=4/2 Susceptible Ampicillin (AM) >8 Resistant Ampicillin/Sulb (A/S) <=8/4 Susceptible Cefazolin (CFZ) <=4 Susceptible Ceftriaxone (FIELD MARKETING LEAD) <=4 Susceptible Chloramphenicol (C) <=8 Susceptible Ciprofloxacin (CP) <=1 Susceptible Clindamycin (CM) 0.5 Susceptible Erythromycin (E) <=0.25 Susceptible Gentamicin (GM) <=1 Susceptible Imipenem (IMP) <=4 Susceptible Levofloxacin (LEV) <=0.5 Susceptible Linezolid (LNZ) 4 Susceptible Oxacillin (OX1) 0.5 Susceptible Penicillin (P) >8 Resistant Rifampin ( RA) <=1 Susceptible Tetracycline (TE) <=1 Susceptible Trimethoprim/Sulfa <=0.5/9.Susceptible (SXT) 5 Vancomycin (VA) 2 SusceptibleRenal [id number] 08:51: 00 Test Item Value Reference Range [...] race is not provided, and the patient isAfrican-Filipino, multiply by 1.212. If sex is not [...] the National Kidney Foundation,http://nkdep.nih .gov CBC with [id number] 07:39:00 Test Item Value Reference Range Comments [...] Lymph Abs (test code=ALYMPH) 1.7 K/cumm 0.5-4.6 [place] Abs (test code=AMONO) 0.3 K/cumm 0.0-1.2 Eos Abs (test code=AEOS) 0.29 K/cumm 0.00-0.74 Baso Abs (test code=ABASO) 0.0 K/cumm 0.00-0.21 Vancomycin, [id number] 12:33:00 Test Item Value Reference Range Comments Vanco, Trou (test code=VANTR) 7.9 ug/mL 10.0-20.0 Magnesium, [id number] 06:37:00 Test Item Value Reference Range Comments Magnesium (test code=MG) 2.4 mg/dL 1.7-2.5 Renal [id number] 06:29:00 Test Item Value Reference Range Comments [...] race is not provided, and the patient isAfrican-Filipino, multiply by 1.212. If sex is not [...] the National Kidney Foundation,http://nkdep.nih .gov BHCG, Serum, [id number] 06:26:00 Test Item Value Reference Range Comments Preg Qual [Se] (test code=BSHCG) Negative Negative CBC with [id number] 06:24:00 Test Item Value Reference Range Comments [...] Lymph Abs (test code=ALYMPH) 1.6 K/cumm 0.5-4.6 [place] Abs (test code=AMONO) 0.4 K/cumm 0.0-1.2 Eos Abs (test code=AEOS) 0.18 K/cumm 0.00-0.74 Baso Abs (test code=ABASO) 0.0 K/cumm 0.00-0.21 XR CHEST 1 [id number] 16:29:55XR CHEST 1 VIEWLOCATION: [id number]: None.INDICATION: REVIEW PICC LINE PLACEMENTDISCUSSION:AP chest and [...] TSH (test code=TSH) 3.44 mIU/mL 0.270-4.200 Lipid [id number] 05:47:00 Test Item Value Reference Range Comments Cholesterol (test 160 mg/dL 0-200 code=CHOL) Triglycerides (test 126 mg/dL 9-200 code=TRIG) HDL (test code=HDL) 35 mg/dL 50-60 Chol/HDL (test 4.6 Ratio 0.0-4.4 code=CHOLPHDL) LDL, Calculated (test 100 0-130 (NOTE)RISK OF HEART code=LDLC) DISEASEPublished by Filipino Heart AssociationAnalyte Optimal Boderline Increased RiskCHOL <200 200-239 >240TRIG <150 150-199 >200HDL Male: >60 <40HDL Female: >60 <50LDL <100 130-159 >160LDL NEAR OPTIMAL IS 100-129 VLDL (test code=VLDL) 25 mg/dL 5-40 LDL/HDL (test code=LDLPHDL) 3 Basic Metabolic [id number] 05:47:00 Test Item Value Reference Range Comments [...] race is not provided, and the patient isAfrican-Filipino, multiply by 1.212. If sex is not provided, and thepatient is female, multiply by 0.742. Results for patients <18 years ofage have not been validated by the MDRD study and should be interpretedwith caution.eGFR Result Interpretation:eGFR > or=60 is in the Normal RangeeGFR < 60 may mean kidney diseaseeGFR < 15 may mean kidney failureRanges recommended by the National Kidney Foundation,http://nkdep.nih .gov Magnesium, [id number] 05:47:00 Test Item Value Reference Range Comments Magnesium (test code=MG) 2.3 mg/dL 1.7-2.5 CBC with [id number] 05:36:00 Test Item Value Reference Range Comments [...] Lymph Abs (test code=ALYMPH) 2.2 K/cumm 0.5-4.6 [place] Abs (test code=AMONO) 0.3 K/cumm 0.0-1.2 Eos Abs (test code=AEOS) 0.24 K/cumm 0.00-0.74 Baso Abs (test code=ABASO) 0.0 K/cumm 0.00-0.21 Partial Thromboplastin [id number] 21:26:00 Test Item Value Reference Range Comments aPTT (test code=PTT) 29.00 seconds 24.39-37.25 Prothrombin [id number] 21:26:00 Test Item Value Reference Range Comments PT (test code=PT) 10.70 seconds 9.78-13.35 INR (test code=INR) 0.95 Ratio 0.6-1.2 Comprehensive Metabolic [id number] 21:23:00 Test Item Value Reference Range Comments [...] race is not provided, and the patient isAfrican-Filipino, multiply by 1.212. If sex is not [...] the National Kidney Foundation,http://nkdep.nih .gov CBC with [id number] 21:16:00 Test Item Value Reference Range Comments [...] Lymph Abs (test code=ALYMPH) 2.2 K/cumm 0.5-4.6 [place] Abs (test code=AMONO) 0.4 K/cumm 0.0-1.2 Eos Abs (test code=AEOS) 0.17 K/cumm 0.00-0.74 Baso Abs (test code=ABASO) 0.1 K/cumm 0.00-0.21
[2019-10-21 03:46] LABS: Absolute Lymphocytes (CBC) 2.1 K/uL (0.7-4.9); Basophils % 0.6 % (0-1.3); Hematocrit 41.5 % (36.0-45.0); Lymphocytes % 24.4 % (15.3-44.8); MPV 8.6 fL (7.6-11.3); RBC Red Blood Cell Count 4.76 M/uL (3.86-4.86)
[2019-10-21 03:49] LABS: Protime INR 0.91
[2019-10-21 03:54] LABS: BUN Blood Urea Nitrogen 9 mg/dL (7-18); Bicarbonate 27 mmol/L (21-32); Glucose Level 97 mg/dL (74-106); Magnesium 2.3 mg/dL (1.8-2.4); Potassium 3.8 mmol/L (3.5-5.1); Sodium Level 143 mmol/L (136-145)
[2019-10-21] MEDS ORDERED: MEPERIDINE HCL 25 MG/0.5 ML ONE ×2 (04:53→06:02)
[2019-10-21 05:02] LABS: Barbiturates NEGATIVE (NEGATIVE); Benzodiazepines NEGATIVE (NEGATIVE); Cocaine NEGATIVE (NEGATIVE); METHAMPHETAM NEGATIVE (NEGATIVE); Methadone NEGATIVE (NEGATIVE); Opiates NEGATIVE (NEGATIVE); Phencyclidine NEGATIVE (NEGATIVE); THC Cannibis NEGATIVE (NEGATIVE)
--- NOTE | 2019-10-21 05:54 | ER ---
Nurse's Notes [facility] Name: Jenni Draper Age: 39 yrs Sex: Female : 1980 Arrival Date: 10/21/2019 Time: 03:12 Bed 8 Private MD: Diagnosis: Epilepsy and recurrent seizures Presentation: 10/21 03:15 Presenting complaint: Patient states: that she was walking to bathroom and had a fc seizure. She then fell and hit the floor. Now states that she cannot feel anything. Transition of care: patient was not received from another setting of care. Onset of symptoms was October 21, 2019. Risk Assessment: Do you want to hurt yourself or someone else? Patient reports no desire to harm self or others. Initial Sepsis Screen: Does the patient meet any 2 criteria? HR > 90 bpm. No. Patient's initial sepsis screen is negative. Does the patient have a suspected source of infection? No. Patient's initial sepsis screen is negative. Care prior to arrival: None. 03:22 Method Of Arrival: Wheelchair 03:22 Acuity: LYUBOV 3 Triage Assessment: 03:40 General: Appears in no apparent distress. 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: 03:15 LMP N/A - Hysterectomy fc Historical: - Allergies: 03:44 Benadryl; fc 03:44 Detrol; fc 03:44 Aspirin; fc 03:44 Bactrim; fc 03:44 Cipro IV; fc 03:44 Clindamycin; fc 03:44 coconut oil; fc 03:44 Codeine; fc 03:44 FISH PRODUCT DERIVATIVES; fc 03:44 GABAPENTIN; fc 03:44 Iodine; fc 03:44 Latex, Natural Rubber; fc 03:44 Morphine; fc 03:44 PENICILLINS; fc 03:44 Seroquel; fc 03:44 Sulfa (Sulfonamide Antibiotics); fc 03:44 Suprax; fc 03:44 Tramadol HCl; fc 03:44 Adhesives; fc - Home Meds: 03:44 Abilify 10 mg oral tab 1 tab q am [Active]; Abilify 5 mg oral tab 1 tab nightly fc [Active]; ProAir HFA 90 mcg/actuation inhalation HFAA 2 puffs every 6 hours [Active]; albuterol sulfate 1.25 mg/3 mL Nebulizer nebu 3 mL 3 times per day [Active]; alprazolam 0.25 mg Oral tab 1 tab nightly [Active]; atorvastatin 10 mg oral tab 1 tab once daily [Active]; benztropine 1 mg Oral tab 1 tab once daily [Active]; Breo Ellipta 100-25 mcg/dose inhalation dsdv 1 puff once daily [Active]; buspirone 15 mg Oral tab 1 tab 2 times per day [Active]; Coreg 25 mg Oral tab 1 tab 2 times per day [Active]; Daliresp 500 mcg oral tab 1 tab once daily [Active]; Effexor XR 150 mg Oral cp24 1 cap once daily [Active]; Eliquis 5 mg oral tab 1 tab daily [Active]; levetiracetam 1,000 mg oral tab 1 tab every 12 hours [Active]; levothyroxine 125 mcg tab 1 tab once daily [Active]; loratadine 10 mg oral TbDL 1 tab once daily [Active]; pregabalin 25 mg Oral 1 cap daily [Active]; Spiriva with HandiHaler 18 mcg inhalation CpDv 1 cap once daily [Active]; topiramate 100 mg oral tab 2 tabs 2 times per day [Active]; - PMHx: 03:44 Atrial Fib; Asthma; Anxiety; Hypertension; Anemia; Seizures; Bronchitis; High fc Cholesterol; Hypothyroidism; - PSHx: 03:44 Hysterectomy; pacemaker; fc - Immunization history:: Last tetanus immunization: up to date Flu vaccine is up to date. - Coronavirus screen:: The patient has NOT traveled to [place], [place], or [place] in the past 14 days. The patient has NOT had contact with known/suspected case of Coronavirus?. - Social history:: Smoking status: Patient denies any tobacco usage or history of. Patient/guardian denies using alcohol, street drugs. - Family history:: not pertinent. - Ebola Screening: : Patient negative for fever greater than or equal to 101.5 degrees Fahrenheit, and additional compatible Ebola Virus Disease symptoms Patient denies exposure to infectious person Patient denies travel to an Ebola-affected area in the 21 days before illness onset. - Hospitalizations: : No recent hospitalization is reported. Screenin:15 Abuse screen: Denies threats or abuse. Nutritional screening: No deficits noted. fc Tuberculosis screening: No symptoms or risk factors identified. Fall Risk Fall in past 12 months (25 points). Secondary diagnosis (15 points) seizures, No IV (0 pts). Ambulatory Aid- None/Bed Rest/Nurse Assist (0 pts). Gait- Weak (10 pts.). Mental Status- Overestimates/Forgets Limitations (15 pts.). Total Jolly Fall Scale indicates High Risk Score (45 or more points). Fall prevention measures have been instituted. Side Rails Up X 2 Placed Close to Nursing Station Frequent Obs/Assessments Occuring As available patient and family educated on Fall Prevention Program and Strategies. Assessment: 03:39 General: Appears in no apparent distress. Behavior is calm, cooperative. Pain: Denies rv pain. Neuro: Level of Consciousness is awake, alert, obeys commands, Oriented to person, place, time, situation, Reports numbness in generalized. Cardiovascular: Patient's skin is warm and dry. Respiratory: Airway is patent. Derm: Skin is intact. 04:27 Reassessment: Patient appears in no apparent distress at this time. Patient and/or rv family updated on plan of care and expected duration. Pain level reassessed. Patient is alert, oriented x 3, equal unlabored respirations, skin warm/dry/pink. came back from CT scan. awaiting result. 05:32 Reassessment: Patient appears in no apparent distress at this time. Patient and/or rv family updated on plan of care and expected duration. Pain level reassessed. Patient is alert, oriented x 3, equal unlabored respirations, skin warm/dry/pink. Vital Signs: 03:15 BP 134 / 107; Pulse 99; Resp 18; Temp 98.5(O); Pulse Ox 99% on R/A; Weight 50.8 kg (R); fc Height 4 ft. 11 in. (149.86 cm) (R); Pain 0/10; 03:30 BP 124 / 84; Pulse 103; Resp 17; Pulse Ox 98% on R/A; rv 04:26 BP 118 / 75; Pulse 92; Resp 18; Pulse Ox 98% on R/A; rv 05:31 BP 120 / 85; Pulse 100; Resp 16; Pulse Ox 97% on R/A; rv 06:22 BP 117 / 80; Pulse 81; Resp 20; Pulse Ox 98% on R/A; rv 03:15 Body Mass Index 22.62 (50.80 kg, 149.86 cm) Kvng Coma Score: 03:40 Eye Response: spontaneous(4). Verbal Response: oriented(5). Motor Response: obeys rv commands(6). Total: 15. ED Course: 03:12 Patient arrived in ED. ds1 03:13 Tanner Robbins MD is Attending Physician. rn 03:15 Arm band placed on Patient placed in an exam room, on a stretcher. fc 03:15 Patient has correct armband on for positive identification. Bed in low position. Call fc light in reach. Side rails up X2. Seizure precautions initiated. cardiac monitor technician on. Pulse ox on. NIBP on. 03:15 No provider procedures requiring assistance completed. fc 03:25 Triage completed. fc 03:29 Inserted saline lock: 22 gauge in right forearm, using aseptic technique. Blood ea collected. 03:36 CXR XRAY In Process Unspecified. EDMS 03:59 Cindy Avitia RN is Primary Nurse. ea 04:13 CT Head C Spine In Process Unspecified. EDMS 06:27 IV discontinued, intact, bleeding controlled, No redness/swelling at site. Pressure rv dressing applied. Administered Medications: 04:55 Drug: Demerol - Meperidine 12.5 mg Route: IVP; Site: right forearm; rv 05:32 Follow up: Response: No adverse reaction; Marked relief of symptoms; RASS: Alert and rv Calm (0) 06:10 Drug: Demerol - Meperidine 12.5 mg Route: IVP; Site: right forearm; ea 06:22 Follow up: Response: No adverse reaction; RASS: Alert and Calm (0) ea 06:10 Drug: Keppra 1000 mg Route: IV; Rate: calculated rate; Site: right forearm; ea 06:28 Follow up: IV Status: Completed infusion rv Outcome: 05:53 Discharge ordered by . rn 06:27 Discharged to home ambulatory, with family. rv 06:27 Condition: good 06:27 Discharge instructions given to patient, family, Instructed on discharge instructions, follow up and referral plans. Demonstrated understanding of instructions, follow-up care. 06:27 Patient left the ED. rv Signatures: Dispatcher [employer] EDMS Sophia Vasquez RN RN fc [place], Demi ds1 Tanner Robbins MD MD rn Antunez, Elena, RN RN ea Vicente Franky, RN RN rv
--- NOTE | 2019-10-21 05:54 | EDPHYS ---
Physician Documentation [facility] Name: Jenni Draper Age: 39 yrs Sex: Female : 1980 Arrival Date: 10/21/2019 Time: 03:12 Bed 8 Private MD: ED Physician Tanner Robbins HPI: 10/21 03:25 This 39 yrs old Female presents to ER via Unassigned with complaints of rn Seizure. 03:25 The patient presents after having a single isolated seizure. rn 04:47 Seizure onset: just prior to arrival. Current symptoms: numbness to entire body. The rn patient has experienced similar episodes in the past. Reports got up to use bathroom, had seizure, fell onto floor, reports can't feel any of her body, family states she has done this before after seizures as well. Takes keppra, states compliant. No other acute issues or changes recently. Denies injury from fall. Can move body, denies weakness, just can't feel body.. 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 - Hysterectomy fc Historical: - Allergies: 03:44 Benadryl; fc 03:44 Detrol; fc 03:44 Aspirin; fc 03:44 Bactrim; fc 03:44 Cipro IV; fc 03:44 Clindamycin; fc 03:44 coconut oil; fc 03:44 Codeine; fc 03:44 FISH PRODUCT DERIVATIVES; fc 03:44 GABAPENTIN; fc 03:44 Iodine; fc 03:44 Latex, Natural Rubber; fc 03:44 Morphine; fc 03:44 PENICILLINS; fc 03:44 Seroquel; fc 03:44 Sulfa (Sulfonamide Antibiotics); fc 03:44 Suprax; fc 03:44 Tramadol HCl; fc 03:44 Adhesives; fc - Home Meds: 03:44 Abilify 10 mg oral tab 1 tab q am [Active]; Abilify 5 mg oral tab 1 tab nightly fc [Active]; ProAir HFA 90 mcg/actuation inhalation HFAA 2 puffs every 6 hours [Active]; albuterol sulfate 1.25 mg/3 mL Nebulizer nebu 3 mL 3 times per day [Active]; alprazolam 0.25 mg Oral tab 1 tab nightly [Active]; atorvastatin 10 mg oral tab 1 tab once daily [Active]; benztropine 1 mg Oral tab 1 tab once daily [Active]; Breo Ellipta 100-25 mcg/dose inhalation dsdv 1 puff once daily [Active]; buspirone 15 mg Oral tab 1 tab 2 times per day [Active]; Coreg 25 mg Oral tab 1 tab 2 times per day [Active]; Daliresp 500 mcg oral tab 1 tab once daily [Active]; Effexor XR 150 mg Oral cp24 1 cap once daily [Active]; Eliquis 5 mg oral tab 1 tab daily [Active]; levetiracetam 1,000 mg oral tab 1 tab every 12 hours [Active]; levothyroxine 125 mcg tab 1 tab once daily [Active]; loratadine 10 mg oral TbDL 1 tab once daily [Active]; pregabalin 25 mg Oral 1 cap daily [Active]; Spiriva with HandiHaler 18 mcg inhalation CpDv 1 cap once daily [Active]; topiramate 100 mg oral tab 2 tabs 2 times per day [Active]; - PMHx: 03:44 Atrial Fib; Asthma; Anxiety; Hypertension; Anemia; Seizures; Bronchitis; High fc Cholesterol; Hypothyroidism; - PSHx: 03:44 Hysterectomy; pacemaker; fc - Immunization history:: Last tetanus immunization: up to date Flu vaccine is up to date. - Coronavirus screen:: The patient has NOT traveled to [place], [place], or [place] in the past 14 days. The patient has NOT had contact with known/suspected case of Coronavirus?. - Social history:: Smoking status: Patient denies any tobacco usage or history of. Patient/guardian denies using alcohol, street drugs. - Family history:: not pertinent. - Ebola Screening: : Patient negative for fever greater than or equal to 101.5 degrees Fahrenheit, and additional compatible Ebola Virus Disease symptoms Patient denies exposure to infectious person Patient denies travel to an Ebola-affected area in the 21 days before illness onset. - Hospitalizations: : No recent hospitalization is reported. ROS: 04:47 Constitutional: Negative for fever, chills, and weight loss, Eyes: Negative for injury, rn pain, redness, and discharge, Neck: Negative for injury, pain, and swelling, Cardiovascular: Negative for chest pain, palpitations, and edema, Respiratory: Negative for shortness of breath, cough, wheezing, and pleuritic chest pain, Abdomen/GI: Negative for abdominal pain, nausea, vomiting, diarrhea, and constipation, MS/Extremity: Negative for injury and deformity, Skin: Negative for injury, rash, and discoloration, Neuro: Negative for headache, weakness Exam: 04:47 Constitutional: This is a well developed, well nourished patient who is awake, alert rn Head/Face: Normocephalic, atraumatic. ENT: No oral trauma Neck: No midline tenderness, can feel soft touch on neck Chest/axilla: Normal chest wall appearance and motion. Nontender with no deformity. No lesions are appreciated. Cardiovascular: Regular rate and rhythm. No pulse deficits. Respiratory: No increased work of breathing, no retractions or nasal flaring. Abdomen/GI: soft, non-tender, no sign of trauma Back: No spinal tenderness. No costovertebral tenderness. Full range of motion. MS/ Extremity: Pulses equal, no cyanosis. Neurovascular intact. Full, normal range of motion. Equal circumference. Neuro: Awake and alert, GCS 15, oriented to person, place, time, and situation. Cranial nerves II-XII grossly intact. Motor strength 5/5 in all extremities. Decreased sensation to soft touch below neck, on both sides. Cerebellar exam normal. 05:30 ECG was reviewed by the Attending Physician. rn Vital Signs: 03:15 BP 134 / 107; Pulse 99; Resp 18; Temp 98.5(O); Pulse Ox 99% on R/A; Weight 50.8 kg (R); fc Height 4 ft. 11 in. (149.86 cm) (R); Pain 0/10; 03:30 BP 124 / 84; Pulse 103; Resp 17; Pulse Ox 98% on R/A; rv 04:26 BP 118 / 75; Pulse 92; Resp 18; Pulse Ox 98% on R/A; rv 05:31 BP 120 / 85; Pulse 100; Resp 16; Pulse Ox 97% on R/A; rv 06:22 BP 117 / 80; Pulse 81; Resp 20; Pulse Ox 98% on R/A; rv 03:15 Body Mass Index 22.62 (50.80 kg, 149.86 cm) Hazen Coma Score: 03:40 Eye Response: spontaneous(4). Verbal Response: oriented(5). Motor Response: obeys rv commands(6). Total: 15. MDM: 03:13 Patient medically screened. rn 05:49 Differential diagnosis: seizure. Data reviewed: vital signs, nurses notes, lab test rn result(s), EKG, radiologic studies, CT scan, and as a result, I will discharge patient. Counseling: I had a detailed discussion with the patient and/or guardian regarding: the historical points, exam findings, and any diagnostic results supporting the discharge/admit diagnosis, lab results, radiology results, the need for outpatient follow up, to return to the emergency department if symptoms worsen or persist or if there are any questions or concerns that arise at home. Response to treatment: the patient's symptoms have markedly improved after treatment, and as a result, I will discharge patient. Special discussion: I discussed with the patient/guardian in detail that at this point there is no indication for admission to the hospital. It is understood, however, that if the symptoms persist or worsen the patient needs to return immediately for re-evaluation. 05:51 ED course: Pt states sensation returning, feeling better. NO acute findings on ct rn head/cspine. NO acute findings on bloodwork. No ischemia or abnormal finding on ecg. Now states sometimes doesn't keep keppra down and might be cause of this breakthrough seizure. . 10/21 03:21 Order name: Basic Metabolic Panel; Complete Time: 04:05 rn 10/21 03:21 Order name: CBC with Diff; Complete Time: 04:05 rn 10/21 03:21 Order name: Magnesium; Complete Time: 04:05 rn 10/21 03:21 Order name: Protime (+inr); Complete Time: 04:05 rn 10/21 03:21 Order name: Ptt, Activated; Complete Time: 04:05 rn 10/21 03:23 Order name: Urine Drug Screen rn 10/21 03:21 Order name: CT Head C Spine rn 10/21 03:23 Order name: CXR XRAY rn 10/21 03:24 Order name: Urine Drug Screen; Complete Time: 05:07 EDMS 10/21 04:45 Order name: Urine Dipstick--Ancillary (enter results) em1 10/21 04:45 Order name: Urine --Ancillary (enter results) em1 10/21 03:21 Order name: C-Collar; Complete Time: 03:39 rn 10/21 03:21 Order name: EKG; Complete Time: 03:22 rn 10/21 03:21 Order name: Cardiac monitoring; Complete Time: 03:39 rn 10/21 03:21 Order name: EKG - Nurse/Tech; Complete Time: 03:39 rn 10/21 03:21 Order name: IV Saline Lock; Complete Time: 03:39 rn 10/21 03:21 Order name: Labs collected and sent; Complete Time: 03:39 rn 10/21 03:21 Order name: NPO; Complete Time: 03:39 rn 10/21 03:21 Order name: O2 Per Protocol; Complete Time: 03:39 rn 10/21 03:21 Order name: O2 Sat Monitoring; Complete Time: 03:39 rn 10/21 03:21 Order name: Urine Dipstick-Ancillary (obtain specimen); Complete Time: 04:42 rn EC:30 Rate is 95 beats/min. Rhythm is regular. QRS Eros is Normal. NM interval is normal. QRS rn interval is normal. QT interval is normal. No Q waves. T waves are Normal. No ST changes noted. Clinical impression: Normal ECG. Interpreted by me. Reviewed by me. Administered Medications: 04:55 Drug: Demerol - Meperidine 12.5 mg Route: IVP; Site: right forearm; rv 05:32 Follow up: Response: No adverse reaction; Marked relief of symptoms; RASS: Alert and rv Calm (0) 06:10 Drug: Demerol - Meperidine 12.5 mg Route: IVP; Site: right forearm; ea 06:22 Follow up: Response: No adverse reaction; RASS: Alert and Calm (0) ea 06:10 Drug: Keppra 1000 mg Route: IV; Rate: calculated rate; Site: right forearm; ea 06:28 Follow up: IV Status: Completed infusion rv Disposition: 10/21/19 05:53 Discharged to Home. Impression: Epilepsy and recurrent seizures. - Condition is Stable. - Discharge Instructions: Seizure, Adult. - Medication Reconciliation Form, Thank You Letter, Antibiotic Education, Prescription Opioid Use form. - Follow up: Private Physician; When: As needed; Reason: Recheck today's complaints, Re-evaluation by your physician. - Problem is an acute exacerbation. - Symptoms have improved. Signatures: Dispatcher [employer] EDSophia Cardoso, RN RN Tanner Galvan MD MD rn Antunez, Elena, RN RN ea Vicente, Ronaldo, LAUREL RN rv Corrections: (The following items were deleted from the chart) 06:27 05:53 10/21/2019 05:53 Discharged to Home. Impression: Epilepsy and recurrent seizures. rv Condition is Stable. Forms are Medication Reconciliation Form, Thank You Letter, Antibiotic Education, Prescription Opioid Use. Follow up: Private Physician; When: As needed; Reason: Recheck today's complaints, Re-evaluation by your physician. Problem is an acute exacerbation. Symptoms have improved. rn
[2019-10-21] MEDS ORDERED: LEVETIRACETAM 500 MG/5 ML VIAL IV ONE (06:02)
[2019-10-21] MEDS ORDERED: NA CHLORIDE 0.9% 100 ML IV ONE (06:02)
[2019-10-21 06:44] VITALS: TEMP 98.5
--- NOTE | 2019-10-21 06:54 | EKG ---
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
[2019-10-21 06:57] VITALS: BP 117/80; O2SAT 98
[2019-10-21 07:12] LABS: Urine Blood 2+ (NEG); Urine Glucose NEGATIVE (NEG); Urine Protein NEGATIVE (NEG); Urine Specific Gravity 1.015 (1.005-1.030); Urine pH 7.5 (5.0-7.0)
--- NOTE | 2019-10-21 08:14 | RAD REPORT ---
EXAM DESCRIPTION: [facility] Single View10/21/2019 3:36 am CLINICAL HISTORY: Seizure COMPARISON: July 2019 FINDINGS: The lungs appear clear of acute infiltrate. The heart is normal size. Pacemaker leads in place IMPRESSION: No acute abnormalities displayed
--- NOTE | 2019-10-21 10:37 | RAD REPORT ---
EXAM DESCRIPTION: CT - Head C Spine Mpr Wo Con - 10/21/2019 5:16 am CLINICAL HISTORY: Fall, reports loss of sensation below neck TECHNIQUE: Multiple axial CT images of the brain and cervical spine were performed followed by sagit jayleen and coronal reconstructed images. The CT study is performed according to ALARA (as low as reasona alfredo achievable) or ALARA/IMAGE GENTLY, with automatic adjustment of mA and/or kV according to patient size. Performed on: 10/21/2019 at 3:54 AM Comparisons: Prior head CT performed on 08/17/2018. FINDINGS: CT HEAD: There is no evidence of mass, acute mass effect or midline shift. There are no acute extra-axial flui d collections. There is no evidence of acute intracranial hemorrhage. The cerebral sulci and ventricles are normal in size and configuration. There are no focal abnormal areas of increased or decreased attenuation. There is moderate mucosal thickening of the right maxillary sinus and ethmoid sinuses and mild mucosa l thickening of the left maxillary sinus and sphenoid sinuses. Overall, the degree of paranasal sinus pathology has improved since the prior study. The mastoid air cells are clear. The orbital contents are grossly unremarkable. No acute osseous abnormalities are identified. No focal soft tissue abnormalities are identified. CT CERVICAL SPINE: The cervical vertebrae are normal in height. There is normal alignment of the vertebrae. The disc spa jamey are well preserved in height. Bone mineralization is normal. The atlanto-axial articulation is preserved and the odontoid process is intact. There is normal alignment of the facet joints on the parasagittal images. There are no significant de generative changes of the cervical spine. There is no evidence of acute fracture or subluxation. There is no significant canal stenosis. Ther e is no significant neural foraminal stenosis. The paravertebral and paraspinal soft tissues are un remarkable. The lung apices are clear. IMPRESSION: CT head: 1. There is no evidence of acute intracranial pathology. 2. Overall improved aeration of the paranasal sinuses when compared to the prior study with persisten t patchy paranasal sinus mucosal thickening as described above. CT cervical spine: 1. No evidence of acute osseous abnormality involving the cervical spine. 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 The interpreting radiologist is f ully responsible for the content of the report.
== END 2019-10-21 06:27 | disposition home or self-care (01) ==
LOC: ER 03:11
DX: G40.802 Other epilepsy, not intractable, without status epilepticus (principal); I10 Essential (primary) hypertension; E03.9 Hypothyroidism, unspecified; I48.91 Unspecified atrial fibrillation; Z95.0 Presence of cardiac pacemaker; Z79.01 Long term (current) use of anticoagulants; Z88.0 Allergy status to penicillin; Z88.1 Allergy status to other antibiotic agents; Z88.2 Allergy status to sulfonamides; Z88.3 Allergy status to other anti-infective agents; Z88.5 Allergy status to narcotic agent; Z88.6 Allergy status to analgesic agent; Z88.8 Allergy status to other drugs, medicaments and biological substances; Z91.013 Allergy to seafood; Z91.048 Other nonmedicinal substance allergy status
CPT/HCPCS: 96365; 93005; 85025; 80048; 36415; 83735; 81025; 85610; 80307 ×8; 85730; 81003; 70450; 72125; 71045; 96375; 99284; J2175 ×2; J1953

== ENCOUNTER 2019-11-10 19:37 | Emergency (ER) | payer MEDICAID ==
--- OUTSIDE RECORDS SUMMARY | 2019-11-10 19:40 | XMS REPORT ---
:1980 Author Organization [facility] Address [address] [place] [address] Care Team Providers Name Role Phone MILTONTAMARA [...] Facility Department ID 2017-09-06 2017-09-08 [facility] [id number] 10:12:00 02:32:00 LYLY Results Test Description Test Time Test Comments Text Results Atomic Results Result Comments POCT-GLUCOSE METER 2018-08-21 10:22:00 Test Item Value Reference Range Comments POC-GLUCOSE METER (BEAKER) (test 102 mg/dL 70-110 TESTED AT [facility] [address] [facility] zcve=[id number]) [facility] [address] MR, MRA, BRAIN, WITHOUT [id number] 09:32:00Reason for exam:-> Ischemic Stroke EvaluationFINAL REPORT MRA Head CLINICAL HISTORY: Ischemic Stroke TECHNIQUE: MRA of the head utilizing 3-D time-of- flight technique, with 3-D reconstructions. COMPARISON: None FINDINGS: There is no evidence of intracranial aneurysm, focal stenosis, or major branch vessel occlusion. IMPRESSION: No evidence for a major [place] proximal branch vessel occlusion. MRA Neck CLINICAL HISTORY: Ischemic Stroke TECHNIQUE : MRA of the neck utilizing 2-D and 3-D fter-hz-gdwvur technique, with 3-D reconstructions. COMPARISON: None FINDINGS: The carotid arteries in the neck are patent including their bifurcations. There is antegrade flow in the vertebral arteries in the neck. IMPRESSION: No evidence of hemodynamically significant stenosis in the cervical carotid or vertebral arteries by NASCET criteria. Signed: Santos Neff MDReport Verified Date/Time: 08/21/2018 09:32: 09 Reading Location: [address] Neuro Reading Room MR, MRA, NECK, WITHOUT IV [id number] 09:32:00Reason for exam:->Ischemic Stroke EvaluationFINAL REPORT MRA Head CLINICAL HISTORY: Ischemic Stroke TECHNIQUE: MRA of the head utilizing 3-D ognq-qn-fsjcjv technique, with 3-D reconstructions. COMPARISON: None FINDINGS: There is no evidence of intracranial aneurysm, focal stenosis, or major branch vessel occlusion. IMPRESSION: No evidence for a major [place] proximal branch vessel occlusion. MRA Neck CLINICAL HISTORY: Ischemic Stroke TECHNIQUE: MRA of the neck utilizing 2-D and 3-D dadg-no-wewvbl technique, with 3-D reconstructions. COMPARISON: None FINDINGS: The carotid arteries in the neck are patent including their bifurcations. There is antegrade flow in the vertebral arteries in the neck. IMPRESSION: No evidence of hemodynamically significant stenosis in the cervical carotid or vertebral arteries by NASCET criteria. Signed: Santos Neff MDRiman Verified Date/Time: 08/21/2018 09:32:09 Reading Location: [address] Neuro Reading Room MR, BRAIN, WITHOUT [id number] 09:25: 00Reason for exam:->Ischemic Stroke EvaluationFINAL REPORT [...] Verified Date/Time: 08/21/2018 09:25:25 Reading Location : [facility] C013V Neuro Reading Room POCT-GLUCOSE [id number] 21:26:00 Test Item Value Reference Range Comments POC-GLUCOSE METER (BEAKER) 119 mg/dL 70-110 TESTED AT [address] (test sflu=0515) [facility] [address] POCT-GLUCOSE [id number] 18:03:00 Test Item Value Reference Range Comments POC-GLUCOSE METER (BEAKER) 119 mg/dL 70-110 TESTED AT [address] (test wyyi=7699) [place] [id number] POCT-GLUCOSE [id number] 12:39:00 Test Item Value Reference Range Comments POC-GLUCOSE METER (BEAKER) 120 mg/dL 70-110 TESTED AT [address] (test tgve=2831) [facility] [address] RAD, CHEST, 1 VIEW, NON [id number] 12:04:00Reason for exam:->To Locate Heart Device (Pacemaker)Should [...] MDReport Verified Date/Time: 08/20/2018 12:04:06 [facility] POCT-GLUCOSE [id number] 09:17:00 Test Item Value Reference Range Comments POC-GLUCOSE METER (BEAKER) 121 mg/dL 70-110 TESTED AT [address] (test vegv=9550) [facility] [address] BASIC METABOLIC [id number] 06:56:00 Test Item Value Reference Range Comments SODIUM (BEAKER) (test 140 meq/L 136-145 cgle=157) POTASSIUM (BEAKER) (test 4.0 meq/L 3.5-5.1 grdl=627) CHLORIDE (BEAKER) (test 108 meq/L 98-107 ykra=962) CO2 (BEAKER) (test 25 meq/L 22-29 ommo=329) BLOOD UREA NITROGEN 11 mg/dL 7-21 (BEAKER) (test aesn=586) CREATININE (BEAKER) (test 0.69 mg/dL 0.57-1.25 eymj=270) GLUCOSE RANDOM (BEAKER) 94 mg/dL 70-105 (test dgcs=241) CALCIUM (BEAKER) (test 9.5 mg/dL 8.4-10.2 vpfh=293) EGFR (BEAKER) (test 96 mL/min/1.73 sq m ESTIMATED GFR IS NOT xeje=4064) ACCURATE CREATININE CLEARANCE IN PREDICTING GLOMERULAR FILTRATION RATE. ESTIMATED GFR IS NOT APPLICABLE FOR DIALYSIS PATIENTS. POCT-GLUCOSE [id number] 21:09:00 Test Item Value Reference Range Comments POC-GLUCOSE METER (BEAKER) 109 mg/dL 70-110 TESTED AT [address] (test jmin=1035) [place] [id number] POCT-GLUCOSE [id number] 17:15:00 Test Item Value Reference Range Comments POC-GLUCOSE METER (BEAKER) 117 mg/dL 70-110 TESTED AT [address] (test qxqb=9352) [place] [address] VITAMIN B12 AND [id number] 06:39:00 Test Item Value Reference Range Comments VITAMIN B12 (BEAKER) (test fzqc=671) 524 pg/mL 213-816 FOLATE (BEAKER) (test hxae=079) 13.5 ng/mL >=7.0 BASIC METABOLIC [id number] 05:48:00 Test Item Value Reference Range Comments SODIUM (BEAKER) (test 139 meq/L 136-145 ziin=547) POTASSIUM (BEAKER) (test 4.0 meq/L 3.5-5.1 ilut=459) CHLORIDE (BEAKER) (test 107 meq/L 98-107 kfgg=711) CO2 (BEAKER) (test 24 meq/L 22-29 rpxa=091) BLOOD UREA NITROGEN 11 mg/dL 7-21 (BEAKER) (test rwro=226) CREATININE (BEAKER) (test 0.72 mg/dL 0.57-1.25 zzkn=165) GLUCOSE RANDOM (BEAKER) 107 mg/dL 70-105 (test qzki=691) CALCIUM (BEAKER) (test 9.5 mg/dL 8.4-10.2 dson=102) EGFR (BEAKER) (test 91 mL/min/1.73 sq m ESTIMATED GFR IS NOT nanc=6121) ACCURATE CREATININE CLEARANCE IN PREDICTING GLOMERULAR FILTRATION RATE. ESTIMATED GFR IS NOT APPLICABLE FOR DIALYSIS PATIENTS. [id number] 15:42:00 Test Item Value Reference Range Comments RPR SCREEN (BEAKER) (test zyui=068) Nonreactive Nonreactive HEMOGLOBIN [id number] 09:14:00 Test Item Value Reference Range Comments HEMOGLOBIN A1C (BEAKER) (test oevc=056) 5.3 % 4.3-6.1 TSH/FREE T4 IF [id number] 04:49:00 Test Item Value Reference Range Comments THYROID STIMULATING HORMONE (BEAKER) (test 3.18 uIU/mL 0.35-4.94 sbdf=372) BASIC METABOLIC [id number] 04:38:00 Test Item Value Reference Range Comments SODIUM (BEAKER) (test 139 meq/L 136-145 dlsd=260) POTASSIUM (BEAKER) (test 4.2 meq/L 3.5-5.1 Specimen slightly vosr=807) hemolyzed CHLORIDE (BEAKER) (test 107 meq/L 98-107 iaqb=781) CO2 (BEAKER) (test 26 meq/L 22-29 hply=360) BLOOD UREA NITROGEN 10 mg/dL 7-21 (BEAKER) (test xxon=012) CREATININE (BEAKER) (test 0.73 mg/dL 0.57-1.25 Specimen slightly suac=664) hemolyzed GLUCOSE RANDOM (BEAKER) 104 mg/dL 70-105 (test aqvx=854) CALCIUM (BEAKER) (test 9.7 mg/dL 8.4-10.2 znfu=307) EGFR (BEAKER) (test 90 mL/min/1.73 sq m ESTIMATED GFR IS NOT ikve=4512) ACCURATE CREATININE CLEARANCE IN PREDICTING GLOMERULAR FILTRATION RATE. ESTIMATED GFR IS NOT APPLICABLE FOR DIALYSIS PATIENTS. LIPID [id number] 04:38:00 Test Item Value Reference Range Comments TRIGLYCERIDES (BEAKER) (test 121 mg/dL Specimen slightly hemolyzed dsfz=563) CHOLESTEROL (BEAKER) (test 172 mg/dL Specimen slightly hemolyzed gmlo=527) HDL CHOLESTEROL (BEAKER) (test 36 mg/dL kero=657) LDL CHOLESTEROL CALCULATED 112 mg/dL (BEAKER) (test redq=236) Triglyceride Reference Range: Low Risk <150 Borderline 150- 199 High Risk 200-499 Very High Risk >=500Cholesterol Reference Range: Low Risk <200 Borderline 200-239 High Risk > 240HDL Cholesterol Reference Range: Low Risk >=60 High Risk <40LDL Cholesterol Reference Range: Optimal <100 Near Optimal 100-129 Borderline 130-159 High 160-189 Very High >=190HEPATIC FUNCTION [id number] 04:38:00 Test Item Value Reference Range Comments TOTAL PROTEIN (BEAKER) (test 6.9 gm/dL 6.0-8.3 Specimen slightly hemolyzed iiey=376) ALBUMIN (BEAKER) (test 3.8 g/dL 3.5-5.0 Specimen slightly hemolyzed fgex=2666) BILIRUBIN TOTAL (BEAKER) (test 0.3 mg/dL 0.2-1.2 Specimen slightly hemolyzed nrna=682) BILIRUBIN DIRECT (BEAKER) (test 0.1 mg/dL 0.1-0.5 Specimen slightly hemolyzed zohl=967) ALKALINE PHOSPHATASE (BEAKER) 95 U/L 40-150 (test rblh=514) AST (SGOT) (BEAKER) (test 20 U/L 5-34 Specimen slightly hemolyzed vpvj=650) ALT (SGPT) (BEAKER) (test 13 U/L 6-55 Specimen slightly hemolyzed tiuo=712) CBC (HEMOGRAM ONLY)2018-08-18 03:55:00 Test Item Value Reference Range Comments WHITE BLOOD CELL COUNT (BEAKER) (test sxqs=695) 5.7 K/ L 3.5-10.5 RED BLOOD CELL COUNT (BEAKER) (test ddzt=492) 4.44 M/ L 3.93-5.22 HEMOGLOBIN (BEAKER) (test wcpf=078) 12.9 GM/DL 11.2-15.7 HEMATOCRIT (BEAKER) (test wult=320) 39.8 % 34.1-44.9 MEAN CORPUSCULAR VOLUME (BEAKER) (test fuec=437) 89.6 fL 79.4-94.8 MEAN CORPUSCULAR HEMOGLOBIN (BEAKER) (test 29.1 pg 25.6-32.2 hcph=985) MEAN CORPUSCULAR HEMOGLOBIN CONC (BEAKER) (test 32.4 GM/DL 32.2-35.5 ovxj=538) RED CELL DISTRIBUTION WIDTH (BEAKER) (test 12.6 % 11.7-14.4 rnyr=502) PLATELET COUNT (BEAKER) (test pxyw=579) 210 K/CU MM 150-450 MEAN PLATELET VOLUME (BEAKER) (test gtze=415) 10.3 fL 9.4-12.3 NUCLEATED RED BLOOD CELLS (BEAKER) (test 0 /100 WBC 0-0 ihyp=862) AFB Culture and [id number] 13:24:00Specimen/Source: Wound/ PACEMAKERCollected: 09/05/2017 19:45 Status: Final Last Updated: 2017 13:24 SPY-Nkbex-Kgzhakrcrymj (Final) (Final) 09/07/17 No acid fast bacill seen on direct smear Culture Result (Final) (Final) 11/01/17 No growth of AFB at six (6) weeksFungus Culture with [id number] 12:12: 00Specimen/Source: Wound/PACEMAKERCollected: 09/05/2017 19:45 Status: Final Last Updated: 10/22/2017 12:12 Fungal Smear Result (Final) (Final) 09/06/17 No yeast or hyphae seen Culture Result (Final) (Final) 10/22/17 No fungus isolated at 6 weeksCulture, Blood [id number] 08:23:00Specimen: BloodCollected: 09/04/2017 20:30 Status: Final Last Updated: 09/10/2017 08: 23 Culture Result (Final) (Final) No Growth After 5 DaysCulture, Blood [id number] 08:23:00Specimen: BloodCollected: 09/04/2017 20:15 Status: Final Last Updated: 09/10/2017 08:23 Culture Result (Final) (Final) No Growth After 5 DaysCulture, Wound [id number] 08:52:00Specimen: WoundCollected: 09/05/2017 19:45 Status: Final Last Updated: 09/08/2017 08: 52 Gram Stain (Final) (Final) 09/06/17 No organisms seen, Few WBC's Culture Result (Final) (Final) 09/08/17 Anaerobic culture:No anaerobes isolated at 3 days Isolate (Final) (Final) 09/07/17Few Staph-coag positive Isolate Staph-coag positive JERMAINE (mcg/ml) Amoxicillin/Clav (AUG)<=4/2 Susceptible Ampicillin (AM) >8 Resistant Ampicillin/Sulb (A/S) <=8/4 Susceptible Cefazolin (CFZ) <=4 Susceptible Ceftriaxone (COAT JOINER LOCKSTITCH) <=4 Susceptible Chloramphenicol (C) <=8 Susceptible Ciprofloxacin (CP) <=1 Susceptible Clindamycin (CM) 0.5 Susceptible Erythromycin (E) <=0.25 Susceptible Gentamicin (GM) <=1 Susceptible Imipenem (IMP) <=4 Susceptible Levofloxacin (LEV) <=0.5 Susceptible Linezolid (LNZ) 4 Susceptible Oxacillin (OX1) 0.5 Susceptible Penicillin (P) >8 Resistant Rifampin ( RA) <=1 Susceptible Tetracycline (TE) <=1 Susceptible Trimethoprim/Sulfa <=0.5/9.Susceptible (SXT) 5 Vancomycin (VA) 2 SusceptibleRenal [id number] 08:51: 00 Test Item Value Reference Range [...] race is not provided, and the patient isAfrican-Burmese, multiply by 1.212. If sex is not [...] the National Kidney Foundation,http://nkdep.nih .gov CBC with [id number] 07:39:00 Test Item Value Reference Range Comments [...] Lymph Abs (test code=ALYMPH) 1.7 K/cumm 0.5-4.6 Reagan Abs (test code=AMONO) 0.3 K/cumm 0.0-1.2 Eos Abs (test code=AEOS) 0.29 K/cumm 0.00-0.74 Baso Abs (test code=ABASO) 0.0 K/cumm 0.00-0.21 Vancomycin, [id number] 12:33:00 Test Item Value Reference Range Comments Vanco, Trou (test code=VANTR) 7.9 ug/mL 10.0-20.0 Magnesium, [id number] 06:37:00 Test Item Value Reference Range Comments Magnesium (test code=MG) 2.4 mg/dL 1.7-2.5 Renal [id number] 06:29:00 Test Item Value Reference Range Comments [...] race is not provided, and the patient isAfrican-Burmese, multiply by 1.212. If sex is not [...] the National Kidney Foundation,http://nkdep.nih .gov BHCG, Serum, [id number] 06:26:00 Test Item Value Reference Range Comments Preg Qual [Se] (test code=BSHCG) Negative Negative CBC with [id number] 06:24:00 Test Item Value Reference Range Comments [...] Lymph Abs (test code=ALYMPH) 1.6 K/cumm 0.5-4.6 Reagan Abs (test code=AMONO) 0.4 K/cumm 0.0-1.2 Eos Abs (test code=AEOS) 0.18 K/cumm 0.00-0.74 Baso Abs (test code=ABASO) 0.0 K/cumm 0.00-0.21 XR CHEST 1 [id number] 16:29:55XR CHEST 1 VIEWLOCATION: [id number]: None.INDICATION: REVIEW PICC LINE PLACEMENTDISCUSSION:AP chest and [...] TSH (test code=TSH) 3.44 mIU/mL 0.270-4.200 Lipid [id number] 05:47:00 Test Item Value Reference Range Comments Cholesterol (test 160 mg/dL 0-200 code=CHOL) Triglycerides (test 126 mg/dL 9-200 code=TRIG) HDL (test code=HDL) 35 mg/dL 50-60 Chol/HDL (test 4.6 Ratio 0.0-4.4 code=CHOLPHDL) LDL, Calculated (test 100 0-130 (NOTE)RISK OF HEART code=LDLC) DISEASEPublished by Burmese Heart AssociationAnalyte Optimal Boderline Increased RiskCHOL <200 200-239 >240TRIG <150 150-199 >200HDL Male: >60 <40HDL Female: >60 <50LDL <100 130-159 >160LDL NEAR OPTIMAL IS 100-129 VLDL (test code=VLDL) 25 mg/dL 5-40 LDL/HDL (test code=LDLPHDL) 3 Basic Metabolic [id number] 05:47:00 Test Item Value Reference Range Comments [...] race is not provided, and the patient isAfrican-Burmese, multiply by 1.212. If sex is not provided, and thepatient is female, multiply by 0.742. Results for patients <18 years ofage have not been validated by the MDRD study and should be interpretedwith caution.eGFR Result Interpretation:eGFR > or=60 is in the Normal RangeeGFR < 60 may mean kidney diseaseeGFR < 15 may mean kidney failureRanges recommended by the National Kidney Foundation,http://nkdep.nih .gov Magnesium, [id number] 05:47:00 Test Item Value Reference Range Comments Magnesium (test code=MG) 2.3 mg/dL 1.7-2.5 CBC with [id number] 05:36:00 Test Item Value Reference Range Comments [...] Lymph Abs (test code=ALYMPH) 2.2 K/cumm 0.5-4.6 Reagan Abs (test code=AMONO) 0.3 K/cumm 0.0-1.2 Eos Abs (test code=AEOS) 0.24 K/cumm 0.00-0.74 Baso Abs (test code=ABASO) 0.0 K/cumm 0.00-0.21 Partial Thromboplastin [id number] 21:26:00 Test Item Value Reference Range Comments aPTT (test code=PTT) 29.00 seconds 24.39-37.25 Prothrombin [id number] 21:26:00 Test Item Value Reference Range Comments PT (test code=PT) 10.70 seconds 9.78-13.35 INR (test code=INR) 0.95 Ratio 0.6-1.2 Comprehensive Metabolic [id number] 21:23:00 Test Item Value Reference Range Comments [...] race is not provided, and the patient isAfrican-Burmese, multiply by 1.212. If sex is not [...] the National Kidney Foundation,http://nkdep.nih .gov CBC with [id number] 21:16:00 Test Item Value Reference Range Comments [...] Lymph Abs (test code=ALYMPH) 2.2 K/cumm 0.5-4.6 Reagan Abs (test code=AMONO) 0.4 K/cumm 0.0-1.2 Eos Abs (test code=AEOS) 0.17 K/cumm 0.00-0.74 Baso Abs (test code=ABASO) 0.1 K/cumm 0.00-0.21
--- OUTSIDE RECORDS SUMMARY | 2019-11-10 19:53 | XMS REPORT | Summary of Care ---
:1980 Author Organization [facility] Address [address] [place] [address] Care Team Providers Name Role Phone Diya Mora MD Primary Care Provider Joshua Reyes Insurance H[employer] Reason for Visit Reason Comments Talk To Nurse Encounter Details Date Type Department Care Team Description 11/04/2019 Telephone [facility] Cardiology- Navi Hines MD Talk To Nurse Nydia Wolf [facility] [address] [place] [address] [address] [place] [address] [place] [address] Allergies Active Allergy Reactions Severity Noted Date Comments Adhesive Tape-Silicones Rash Low 08/20/2013 Can use papertape. Aluminum Aspirin Anaphylaxis High 01/19/2016 Aspirin Anaphylaxis High 12/31/2013 Diphenhydramine Hcl Hives 01/04/2018 Diltiazem Hcl Shortness of Breath 06/25/2019 Cefixime Rash Low 04/29/2019 Ciprofloxacin Other - See comments 04/20/2016 Muscle aches Clindamycin Rash 01/04/2018 Coconut Rash 08/04/2018 Codeine Rash 06/05/2018 Has recently taken codeine Tolterodine Tartrate Rash 08/20/2013 Diltiazem Shortness of Breath Medium 05/30/2019 Doxycycline Rash 04/29/2019 Fish Containing Products Anaphylaxis High 04/29/2019 Family history of allergic reaction. Seafood/Fish Rash, Swelling 08/04/2018 Gabapentin Rash 01/04/2018 Iodine Rash 01/04/2018 Ivabradine Rash 06/25/2019 Latex Rash 08/20/2013 "blisters" Morphine Anaphylaxis High 06/29/2017 Penicillin Anaphylaxis High 01/19/2016 Penicillins Anaphylaxis 08/20/2013 Quetiapine Fumarate Rash 04/20/2016 Sulfa (Sulfonamide Rash Low 08/20/2013 Antibiotics) Tramadol Unknown - See 06/22/2017 Rash comments documented as of this encounter (statuses as of 11/06/2019) Medications Medication Sig Dispensed Refills Start Date End Date Status loratadine as needed. 0 06/05/2013 Active (CLARITIN) 10 mg tablet ALBUTEROL SULFATE Inhale. 0 Active (PROAIR HFA INHALE) albuterol Use 1 Ampule 0 Active (ACCUNEB) 1.25 as directed mg/3 mL nebulizer every 6 (six) solution hours as needed. DALIRESP 500 mcg daily. 0 08/25/2013 Active Tab ABILIFY 10 mg TK 1 T PO QHS 1 06/16/2017 Active tablet ABILIFY 5 mg TK 1 T PO D, 1 06/16/2017 Active tablet in am benztropine 1 mg TK 1 T PO BID 1 06/19/2017 Active tablet busPIRone 15 mg TK 1 T PO BID 1 06/16/2017 Active tablet topiramate 100 mg TK 1 T PO HS 1 06/16/2017 Active tablet venlafaxine XR 150 TK 1 C PO HS 1 06/16/2017 Active mg 24 hr capsule fluticasone-vilant Inhale 1 Puff 0 Active florentino (BREO daily. ELLIPTA) 100-25 mcg/dose DsDv tiotropium 18 mcg Inhale 18 mcg 0 Active inhalation daily. ALPRAZolam (XANAX) Take 0.25 mg 0 Active 0.25 mg by mouth at tabletIndications: bedtime as History of DVT needed. (deep vein thrombosis), Sick sinus syndrome, Tachycardia, Pain in pacemaker pocket Levothyroxine 150 Take 150 mcg 0 Active mcg capsule by mouth daily. blood sugar Use as 100 Strip 3 07/18/2018 Active diagnostic directed. R (TRUETEST TEST 73.03. Check STRIPS) once daily stripIndications: Prediabetes lancets (TRUEPLUS Use as 100 Each 3 07/18/2018 Active LANCETS) 33 gauge directed. R MiscIndications: 73.03, Check Prediabetes once daily atorvastatin 10 mg Take 10 mg by 1 08/30/2018 Active tablet mouth daily. levETIRAcetam 500 Take 2 120 tablet 6 04/22/2019 Active mg tablets by tabletIndications: mouth 2 (two) Seizure cerebral times daily. sucralfate Take 10 mL by 1200 mL 2 05/22/2019 Active (CARAFATE) 100 mouth before mg/mL suspension meals and at bedtime. acetaminophen-code Take 1 tablet 30 tablet 0 09/28/2019 Active ine by mouth (TYLENOL-CODEINE every 4 #3) 300-30 mg (four) hours tabletIndications: as needed for Chest pain, Pain (scale unspecified type 1-3). pregabalin Take 25 mg by 0 Active (LYRICA) 25 mg mouth at capsule bedtime. pantoprazole 40 mg Take 1 tablet 30 tablet 0 10/31/2019 Active EC by mouth tabletIndications: daily. Syncope, unspecified syncope type, Ventricular tachycardia, Intercostal pain, Essential hypertension apixaban (ELIQUIS) Take 5 mg by 0 Discontinued 5 mg mouth 2 (two) 0 tabletIndications: times daily. Inappropriate sinus tachycardia, Sinus tachycardia, Sick sinus syndrome, Palpitations, Atypical chest pain, Essential hypertension, History of DVT (deep vein thrombosis), PAF (paroxysmal atrial fibrillation), Dizzy spells metoprolol Take 1 tablet 60 tablet 3 10/30/2019 Discontinued succinate XL 25 mg by mouth 0 (Alternate 24 hr every morning therapy) tabletIndications: and evening. Syncope, unspecified syncope type, Ventricular tachycardia, Intercostal pain, Essential hypertension documented as of this encounter (statuses as of 11/06/2019) Active Problems Problem Noted Date Syncope 10/29/2019 PVT (paroxysmal ventricular tachycardia) 10/29/2019 Digoxin toxicity 10/29/2019 Atrial fibrillation 10/29/2019 Dyspnea 08/25/2019 Seizure disorder 08/25/2019 Stroke 06/15/2019 Mitral valve regurgitation 04/29/2019 Excessive anticoagulation 04/29/2019 Deep vein thrombosis of lower extremity 04/29/2019 Anxiety disorder 04/29/2019 Asthma 04/29/2019 E44.0 Moderate protein calorie malnutrition 02/06/2019 Dysphagia 08/03/2018 Iron deficiency anemia, unspecified iron deficiency anemia type 07/13/2018 Overview: Added automatically from request for surgery [id number] Abdominal pain, unspecified abdominal location 07/13/2018 Overview: Added automatically from request for surgery [id number] Nausea and vomiting, intractability of vomiting not specified, unspecified vomiting type Overview: Added automatically from request for surgery [id number] Chest pain 04/27/2018 Essential hypertension 04/27/2018 Pacemaker 04/27/2018 PAF (paroxysmal atrial fibrillation) 04/27/2018 History of cardiac pacemaker in situ 08/23/2017 Tachycardia, unspecified 06/22/2017 Elevated liver enzymes 07/23/2014 Pseudoseizure 04/15/2014 Left sided numbness 03/22/2014 Prediabetes 09/24/2013 Loss of weight 09/24/2013 Hypothyroidism 09/24/2013 Overview: ICD10 Diagnosis Term Butadiene Convertor Operator Utility Hypoglycemia 08/21/2013 Overview: ICD10 Diagnosis Term Butadiene Convertor Operator Utility documented as of this encounter (statuses as of 11/06/2019) Resolved Problems Problem Noted Date Resolved Date Metabolic syndrome X 07/23/2014 07/23/2014 documented as of this encounter (statuses as of 11/06/2019) Immunizations Name Administration Dates Next Due Pneumococcal Polysaccharide, PPSV23 (PNEUMOVAX) 06/23/2017 documented as of this encounter Social History Tobacco Use Types Packs/Day Years Used Date Former Smoker 0.3 2 Quit: 05/09/2003 Smokeless Tobacco: Never Used Quit: 08/20/2010 Comments: quit 16 years ago Alcohol Use Drinks/Week oz/Week Comments No Financial Resource Strain Answer Date Recorded How hard is it for you to pay for the very basics like Not hard at all 2019 food, housing, medical care, and heating? Food Insecurity Answer Date Recorded Within the past 12 months, you worried that your food would Never true 2019 run out before you got money to buy more. Within the past 12 months, the food you bought just didn't Never true 2019 last and you didn't have money to get more. Transportation Needs Answer Date Recorded In the past 12 months, has lack of transportation kept you from No 10/28/2019 medical appointments or from getting medications? In the past 12 months, has lack of transportation kept you from No 10/28/2019 meetings, work, or getting things needed for daily living? Sex Assigned at Date Recorded Not on file Job Start Date Occupation Industry Not on file Not on file Not on file Travel History Travel Start Travel End No recent travel history available. documented as of this encounter Last Filed Vital Signs Not on filedocumented in this encounter Plan of Treatment Date Type Specialty Care Team Description 11/22/2019 Nurse Visit Cardiology Visit, Adc Nurse 11/26/2019 Office Visit Cardiology Gucci Joshi MD [address] [place] [address] 12/10/2019 Office Visit Cardiology Navi Hines MD [address] [place] [address] [place] [address] Health Maintenance Due Date Last Done Comments VARICELLA VACCINES (1 of 2 - 2-dose childhood series) 1982 DTaP,Tdap,and Td Vaccines (1 - Tdap) 1992 PAP SMEAR 06/21/2007 06/21/2004 INFLUENZA VACCINE (#1) 2019 PNEUMOCOCCAL 0-64 YEARS COMBINED SERIES Completed 06/23/2017 documented as of this encounter Implants Implanted Type Area Catering Truck Driver Device Identifier Shelf Expiration Model / Serial Date / Lot Pacemaker documented as of this encounter Results Not on filedocumented in this encounter Insurance Payer Benefit Plan / Subscriber ID Effective Phone Address Type Group Dates LYNDSEY SOLORIO xxxxxxxxx [address] [place] [id number] MANAGED MEDICAID [place], [place]ICA[place] documented as of this encounter
--- OUTSIDE RECORDS SUMMARY | 2019-11-10 19:53 | XMS REPORT | Summary of Care ---
:1980 Author Organization [facility] [email or web address] Address [address] [place] [id number] Care Team Providers Name Role Phone Diya Mora MD Primary Care Provider Joshua Reyes Insurance H[employer] Reason for Visit Reason Comments Refill Request Encounter Details Date Type Department Care Team Description 11/02/2019 Refill [facility] Cardiology- Navi Hines MD Refill Request [place], [address] [place] [address] [place] [address] Allergies Active Allergy Reactions Severity [...] Inhale. 0 Active (PROAIR HFA INHALE) albuterol (ACCUNEB) Use 1 Ampule 0 Active 1.25 mg/3 mL as directed nebulizer solution every 6 (six) hours as needed. DALIRESP 500 mcg daily. 0 08/25/2013 Active Tab ABILIFY 10 mg TK 1 T PO QHS 1 06/16/2017 Active tablet ABILIFY 5 mg tablet TK 1 T PO D, 1 06/16/2017 Active in am benztropine 1 mg TK 1 T PO BID 1 06/19/2017 Active tablet busPIRone 15 mg TK 1 T PO BID 1 06/16/2017 Active tablet topiramate 100 mg TK 1 T PO HS 1 06/16/2017 Active tablet venlafaxine XR 150 TK 1 C PO HS 1 06/16/2017 Active mg 24 hr capsule fluticasone-vilante Inhale 1 Puff 0 Active rol (BREO ELLIPTA) daily. 100-25 mcg/dose DsDv tiotropium 18 mcg Inhale [...] tablet mouth daily. levETIRAcetam 500 Take 2 tablets 120 tablet 6 04/22/2019 Active mg by mouth 2 tabletIndications: (two) times Seizure cerebral daily. sucralfate Take 10 mL by 1200 mL 2 05/22/2019 Active (CARAFATE) 100 mouth before mg/mL suspension meals and at bedtime. acetaminophen-codei Take 1 tablet 30 tablet 0 09/28/2019 Active ne (TYLENOL-CODEINE by mouth every #3) 300-30 mg 4 (four) hours tabletIndications: as needed for Chest pain, Pain (scale unspecified type 1-3). pregabalin (LYRICA) Take 25 mg by 0 Active 25 mg capsule mouth at bedtime. metoprolol Take 1 tablet 60 tablet 3 10/30/2019 Active succinate XL 25 mg by mouth every 24 hr morning and tabletIndications: evening. Syncope, unspecified syncope type, Ventricular tachycardia, Intercostal pain, Essential hypertension pantoprazole 40 mg Take 1 tablet 30 tablet 0 10/31/2019 Active EC by mouth tabletIndications: daily. Syncope, unspecified syncope type, Ventricular tachycardia, Intercostal pain, Essential hypertension CARVEDILOL 25 mg TAKE 1 TABLET 180 tablet 2 11/06/2019 Active tabletIndications: BY MOUTH TWICE History of DVT DAILY WITH (deep vein MEALS thrombosis), Sick sinus syndrome, Tachycardia ELIQUIS 5 mg TAKE 1 TABLET 180 tablet 1 11/06/2019 Active tabletIndications: BY MOUTH TWICE Inappropriate sinus DAILY tachycardia, Sinus tachycardia, Sick sinus syndrome, Palpitations, Atypical chest pain, Essential hypertension, History of DVT (deep vein thrombosis), PAF (paroxysmal atrial fibrillation), Dizzy spells apixaban (ELIQUIS) Take 5 mg by 0 Discontinued 5 mg mouth 2 (two) 0 tabletIndications: times daily. Inappropriate sinus tachycardia, Sinus tachycardia, Sick sinus syndrome, Palpitations, Atypical chest pain, Essential hypertension, History of DVT (deep vein thrombosis), PAF (paroxysmal atrial fibrillation), Dizzy spells documented as of this encounter (statuses as [...] Overview: Added automatically from request for surgery [id number] Abdominal pain, unspecified abdominal location 07/13/2018 Overview: Added automatically from request for surgery [id number] Nausea and vomiting, intractability of vomiting not specified, unspecified vomiting type Overview: Added automatically from request for surgery [id number] Chest pain 04/27/2018 Essential hypertension 04/27/2018 Pacemaker 04/27/2018 PAF (paroxysmal atrial fibrillation) 04/27/2018 History of cardiac pacemaker in situ 08/23/2017 Tachycardia, unspecified 06/22/2017 Elevated liver enzymes 07/23/2014 Pseudoseizure 04/15/2014 Left sided numbness 03/22/2014 Prediabetes 09/24/2013 Loss of weight 09/24/2013 Hypothyroidism 09/24/2013 Overview: ICD10 Diagnosis 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 Hypoglycemia 08/21/2013 Overview: ICD10 Diagnosis 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 documented as of this encounter (statuses [...] Visit Cardiology Gucci Joshi MD [address] [place] [address] 12/10/2019 Office Visit Cardiology Navi Hines MD [address] [address] Health Maintenance Due Date Last Done Comments VARICELLA VACCINES (1 of 2 - 2-dose childhood series) 1982 DTaP,Tdap,and Td Vaccines (1 - Tdap) 1992 PAP SMEAR 06/21/2007 06/21/2004 INFLUENZA VACCINE (#1) 2019 PNEUMOCOCCAL 0-64 YEARS COMBINED SERIES Completed 06/23/2017 documented as of this encounter Implants Implanted Type Area Lifeline Representatives Device Identifier Shelf Expiration Model / Serial Date / Lot Pacemaker documented as of this encounter Results Not on filedocumented in this encounter Visit Diagnoses Diagnosis History of DVT (deep vein thrombosis) Personal history of venous thrombosis and embolism Sick sinus syndrome Sinoatrial node dysfunction Tachycardia Tachycardia, unspecified Inappropriate sinus tachycardia Other specified cardiac dysrhythmias Sinus tachycardia Other specified cardiac dysrhythmias Palpitations Atypical chest pain Other chest pain Essential hypertension Unspecified essential hypertension PAF (paroxysmal atrial fibrillation) Atrial fibrillation Dizzy spells Dizziness and giddiness documented in this encounter Insurance Payer Benefit Plan / Subscriber ID Effective Phone Address Type Group Dates LYNDSEY SOLORIO xxxxxxxxx 2011-Kobe [employer] Medicaid HEALTHC[place] [facility] [place] [id number] MANAGED MEDICAID [place], [place]ICA[place] documented as of this encounter
--- OUTSIDE RECORDS SUMMARY | 2019-11-10 19:54 | XMS REPORT | Summary of Care ---
:1980 Author Organization [facility] Address [address] [place] [address] Care Team Providers Name Role Phone Diya Mora MD Primary Care Provider Joshua Reyes Insurance Hmo Reason for Visit Reason Comments Chest Pain Encounter Details Date Type Department Care Team Description 11/06/2019 Nurse Triage [facility] Deja Kern, Chest Pain [address] [place] [address] [address] [facility] [phone] [place] [address] Allergies Active Allergy Reactions Severity Noted Date [...] Refills Start Date End Date Status loratadine (CLARITIN) as needed. 0 06/05/2013 Active 10 mg tablet ALBUTEROL SULFATE Inhale. 0 Active (PROAIR HFA INHALE) albuterol (ACCUNEB) Use 1 Ampule as 0 Active 1.25 mg/3 mL nebulizer directed every 6 solution (six) hours as needed. DALIRESP 500 mcg Tab daily. 0 08/25/2013 Active ABILIFY 10 mg tablet TK 1 T PO QHS 1 06/16/2017 Active ABILIFY 5 mg tablet TK 1 T PO D, in 1 06/16/2017 Active am benztropine 1 mg TK 1 T PO BID 1 06/19/2017 Active tablet busPIRone 15 mg tablet TK 1 T PO BID 1 06/16/2017 Active topiramate 100 mg TK 1 T PO HS 1 06/16/2017 Active tablet venlafaxine XR 150 mg TK 1 C PO HS 1 06/16/2017 Active 24 hr capsule fluticasone-vilanterol Inhale 1 Puff 0 Active (BREO ELLIPTA) 100-25 daily. mcg/dose DsDv tiotropium 18 mcg Inhale 18 mcg 0 Active inhalation daily. ALPRAZolam (XANAX) Take 0.25 mg by 0 Active 0.25 mg mouth at bedtime tabletIndications: as needed. History of DVT (deep vein thrombosis), Sick sinus syndrome, Tachycardia, Pain in pacemaker pocket Levothyroxine 150 mcg Take 150 mcg by 0 Active capsule mouth daily. blood sugar diagnostic Use as directed. 100 Strip 3 07/18/2018 Active (TRUETEST TEST STRIPS) R 73.03. Check stripIndications: once daily Prediabetes lancets (TRUEPLUS Use as directed. 100 Each 3 07/18/2018 Active LANCETS) 33 gauge R 73.03, Check MiscIndications: once daily Prediabetes atorvastatin 10 mg Take 10 mg by 1 08/30/2018 Active tablet mouth daily. levETIRAcetam 500 mg Take 2 tablets by 120 tablet 6 04/22/2019 Active tabletIndications: mouth 2 (two) Seizure cerebral times daily. sucralfate (CARAFATE) Take 10 mL by 1200 mL 2 05/22/2019 Active 100 mg/mL suspension mouth before meals and at bedtime. acetaminophen-codeine Take 1 tablet by 30 tablet 0 09/28/2019 Active (TYLENOL-CODEINE #3) mouth every 4 300-30 mg (four) hours as tabletIndications: needed for Pain Chest pain, (scale 1-3). unspecified type pregabalin (LYRICA) 25 Take 25 mg by 0 Active mg capsule mouth at bedtime. pantoprazole 40 mg EC Take 1 tablet by 30 tablet 0 10/31/2019 Active tabletIndications: mouth daily. Syncope, unspecified syncope type, Ventricular tachycardia, Intercostal pain, Essential hypertension CARVEDILOL 25 mg TAKE 1 TABLET BY 180 tablet 2 11/06/2019 Active tabletIndications: MOUTH TWICE DAILY History of DVT (deep WITH MEALS vein thrombosis), Sick sinus syndrome, Tachycardia ELIQUIS 5 mg TAKE 1 TABLET BY 180 tablet 1 11/06/2019 Active tabletIndications: MOUTH TWICE DAILY Inappropriate sinus tachycardia, Sinus tachycardia, Sick sinus [...] Overview: Added automatically from request for surgery [id number] Abdominal pain, unspecified abdominal location 07/13/2018 Overview: Added automatically from request for surgery [id number] Nausea and vomiting, intractability of vomiting not specified, unspecified vomiting type Overview: Added automatically from request for surgery [id number] Chest pain 04/27/2018 Essential hypertension 04/27/2018 Pacemaker 04/27/2018 PAF (paroxysmal atrial fibrillation) 04/27/2018 History of cardiac pacemaker in situ 08/23/2017 Tachycardia, unspecified 06/22/2017 Elevated liver enzymes 07/23/2014 Pseudoseizure 04/15/2014 Left sided numbness 03/22/2014 Prediabetes 09/24/2013 Loss of weight 09/24/2013 Hypothyroidism 09/24/2013 Overview: ICD10 Diagnosis 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 Hypoglycemia 08/21/2013 Overview: ICD10 Diagnosis 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 documented as of this encounter [...] Cardiology Gucci Joshi MD [address] [place] [address] 12/10/2019 Office Visit Cardiology Navi Hines MD [address] [address] Health Maintenance Due Date Last Done Comments VARICELLA VACCINES (1 of 2 - 2-dose childhood series) 1982 DTaP,Tdap,and Td Vaccines (1 - Tdap) 1992 PAP SMEAR 06/21/2007 06/21/2004 INFLUENZA VACCINE (#1) 2019 PNEUMOCOCCAL 0-64 YEARS COMBINED SERIES Completed 06/23/2017 documented as of this encounter Implants Implanted Type Area Sandwich Artist Device Identifier Shelf Expiration Model / Serial Date / Lot Pacemaker documented as of this encounter Results Not on filedocumented in this encounter Insurance Payer Benefit Plan / Subscriber ID Effective Phone Address Type Group Dates LYNDSEY SOLORIO xxxxxxxxx 2011-Kobe [place] Medicaid [place] [id number] MANAGED MEDICAID [place], [place] documented as of this encounter
--- OUTSIDE RECORDS SUMMARY | 2019-11-10 19:54 | XMS REPORT | Summary of Care ---
:1980 Author Organization [facility] - [facility] Address [address] [place] [phone] Care Team Providers Name Role Phone Diya Mora MD Primary Care Provider Joshua Reyes Insurance Hmo Reason for Referral Radiology Services (Emergency) Status Reason Specialty Diagnoses / Referred By Referred To Procedures Contact Contact New Request Diagnostic Diagnoses Chest pain, unspecified type Morrical, Radiology Procedures CHEST 2 VIEWS Samantha Pradhan MD [address] [place] [id number] Reason for Visit Reason Comments Chest Pain Auth/Cert Status Reason Specialty Diagnoses / Referred By Referred To Procedures Contact Contact Emergency Medicine Ed-Emergency Dept [address] [place] [phone] Encounter Details Date Type Department Care Team Description 11/06/2019 - Emergency [facility] Samantha Lee Chest pain, unspecified type (Primary Dx); 11/07/2019 Chapo Pradhan MD Cervicalgia; [address] [place] [address] Radicular pain in left arm [address] [address] [facility] [phone] Allergies Active Allergy Reactions Severity Noted Date [...] as of this encounter (statuses as of 11/07/2019) Medications Medication Sig Dispensed Refills Start Date [...] mg tablet TK 1 T PO QHS 06/16/2017 Active ABILIFY 5 mg tablet TK 1 T PO D, in 1 06/16/2017 Active am benztropine 1 mg tablet TK 1 T PO BID 06/19/2017 Active busPIRone 15 mg tablet TK 1 T PO BID 1 06/16/2017 Active topiramate 100 mg TK 1 T PO HS 1 06/16/2017 Active tablet venlafaxine XR 150 mg TK 1 C PO HS 1 06/16/2017 Active 24 hr capsule fluticasone-vilanterol Inhale 1 Puff 0 Active (BREO ELLIPTA) 100-25 daily. mcg/dose DsDv tiotropium 18 mcg Inhale 18 mcg 0 Active inhalation daily. ALPRAZolam (XANAX) 0.25 Take 0.25 mg by 0 Active mg tabletIndications: mouth at bedtime History of DVT (deep as needed. vein thrombosis), Sick sinus syndrome, Tachycardia, Pain [...] daily. levETIRAcetam 500 mg Take 2 tablets 120 tablet 6 04/22/2019 Active tabletIndications: by mouth 2 (two) Seizure cerebral times daily. sucralfate (CARAFATE) Take 10 mL by 1200 mL 2 05/22/2019 Active 100 mg/mL suspension mouth before meals and at bedtime. acetaminophen-codeine Take 1 tablet by 30 tablet 0 09/28/2019 Active (TYLENOL-CODEINE #3) mouth every 4 300-30 mg (four) hours as tabletIndications: needed for Pain Chest pain, unspecified (scale 1-3). type pregabalin (LYRICA) 25 Take 25 mg by 0 Active mg capsule mouth at bedtime. pantoprazole 40 mg EC Take 1 tablet by 30 tablet 0 10/31/2019 Active tabletIndications: mouth daily. Syncope, unspecified syncope type, Ventricular tachycardia, Intercostal pain, Essential hypertension CARVEDILOL 25 mg TAKE 1 TABLET BY 180 tablet 2 11/06/2019 Active tabletIndications: MOUTH TWICE History of DVT (deep DAILY WITH MEALS vein thrombosis), Sick sinus syndrome, Tachycardia ELIQUIS 5 mg TAKE 1 TABLET BY 180 tablet 1 11/06/2019 Active tabletIndications: MOUTH TWICE Inappropriate sinus DAILY tachycardia, Sinus tachycardia, Sick sinus syndrome, Palpitations, Atypical chest pain, Essential hypertension, History of DVT (deep vein thrombosis), PAF (paroxysmal atrial fibrillation), Dizzy spells cyclobenzaprine 5 mg Take 1 tablet by 12 tablet 0 11/07/2019 Active tabletIndications: mouth 3 (three) Cervicalgia, Radicular times daily as pain in left arm needed for Muscle Spasms. Diclofenac Sodium Apply to 100 g 0 11/07/2019 Active (VOLTAREN) 1 % area(s) 2 (two) gelIndications: Chest times daily as pain, unspecified type, needed for Pain Cervicalgia, Radicular (scale 4-6). pain in left arm documented as of this encounter (statuses as of 11/07/2019) Active Problems Problem Noted Date Syncope 10/29/2019 [...] Overview: Added automatically from request for surgery [id number] Abdominal pain, unspecified abdominal location 07/13/2018 Overview: Added automatically from request for surgery [id number] Nausea and vomiting, intractability of vomiting not specified, unspecified vomiting type Overview: Added automatically from request for surgery [id number] Chest pain 04/27/2018 Essential hypertension 04/27/2018 Pacemaker 04/27/2018 PAF (paroxysmal atrial fibrillation) 04/27/2018 History of cardiac pacemaker in situ 08/23/2017 Tachycardia, unspecified 06/22/2017 Elevated liver enzymes 07/23/2014 Pseudoseizure 04/15/2014 Left sided numbness 03/22/2014 Prediabetes 09/24/2013 Loss of weight 09/24/2013 Hypothyroidism 09/24/2013 Overview: ICD10 Diagnosis Term Camera Engineer Utility Hypoglycemia 08/21/2013 Overview: ICD10 Diagnosis Term Camera Engineer Utility documented as of this encounter (statuses as of 11/07/2019) Resolved Problems Problem Noted Date Resolved Date Metabolic syndrome X 07/23/2014 07/23/2014 documented as of this encounter (statuses as of 11/07/2019) Immunizations Name Administration Dates Next Due Pneumococcal [...] of this encounter Last Filed Vital Signs Vital Sign Reading Time Taken Comments Blood Pressure 108/79 11/07/2019 2:07 AM GASOLINE PUMP MECHANIC Pulse 104 11/07/2019 2:07 AM GASOLINE PUMP MECHANIC Temperature 36.8 C (98.3 F) 11/07/2019 2:07 AM GASOLINE PUMP MECHANIC Respiratory Rate 16 11/07/2019 2:07 AM GASOLINE PUMP MECHANIC Oxygen Saturation 98% 11/07/2019 2:07 AM GASOLINE PUMP MECHANIC Inhaled Oxygen Concentration - - Weight 50.8 kg (112 lb) 11/06/2019 8:08 PM GASOLINE PUMP MECHANIC Height - - Body Mass Index 22.62 10/28/2019 6:27 PM GASOLINE PUMP MECHANIC documented in this encounter Discharge Instructions InstructionsMorrical, Samantha Pradhan MD - 11/07/2019 DIAGNOSIS R07.9 Chest pain, unspecified type (primary encounter diagnosis) M54.2 Cervicalgia M79.2 Radicular pain in left arm NO LIFE-THREATENING FINDINGS ON TODAY'S EXAM. PROCEDURES IN THE ER TODAY: Orders Placed This Encounter Procedures CHEST 2 VIEWS TROPONIN I aPTT PROTHROMBIN TIME / INR COMP. METABOLIC PANEL (18867) LIPASE, SERUM CBC WITH DIFF CBC WITH DIFFERENTIAL DIGOXIN TROPONIN I O2 Per Protocol MEDICATIONS ADMINISTERED IN THE ER TODAY: Orders Placed This Encounter Medications sodium chloride (NS) injection 5 mL FENTanyl PF (SUBLIMAZE (PF)) injection 50 mcg cyclobenzaprine (FLEXERIL) tablet 5 mg ketorolac (TORADOL) injection 15 mg YOUR PRESCRIPTIONS AND [id number] MEDICATION RECOMMENDATIONS: cyclobenzaprine 5 mg tablet Diclofenac Sodium (VOLTAREN) 1 % gel SPECIAL CARE INSTRUCTIONS: Limit heavy lifting to straining of the neck. Stretch the neck and do mobility exercised as tolerate. FOLLOW-UP RECOMMENDATIONS: RECOMMEND FOLLOW-UP WITH A PRIMARY CARE PROVIDER IN 2-5 DAYS, ESPECIALLY IF NO IMPROVEMENT IN SYMPTOMS. TO FOLLOW-UP WITHIN THE [facility] HEALTHCARE SYSTEM, TRY THESE OPTIONS (CLINIC APPOINTMENTS AVAILABLE ON [id number] BASIS): 1. SCHEDULE AN APPOINTMENT ONLINE AT WWW.[email or web address] 2. OR CALL THE [facility] ACCESS CENTER AT OR 3. OR CALL YOUR [facility] PHYSICIAN'S OFFICE DIRECTLY IF YOU ARE ALREADY AN ESTABLISHED [facility] PATIENT. OR, YOU MAY FOLLOW-UP WITH A PROVIDER OF YOUR CHOICE, SUCH : 1. A PHYSICIAN OF YOUR CHOICE 2. [facility], . LOCATIONS IN [facility] 3. [facility], [address] [place] [address]; [phone] RETURN TO ER FOR WORSENING OF SYMPTOMS. AttachmentsThe following attachments cannot be sent through Care Everywhere.Cervical Radiculopathy, Understanding ([place] Citizen)Neck, Protecting Your : Posture and Body Mechanics ([place] Citizen)Chin Tuck (Posture and Strength) ([place] Citizen )documented in this encounter Plan of Treatment Date Type Specialty Care Team Description 11/22/2019 Nurse Visit Cardiology Visit, Adc Nurse 11/26/2019 Office Visit Cardiology Gucci Joshi MD [address] [place] [address] [phone] 12/10/2019 Office Visit Cardiology Navi Hines MD [address] [place] [address] Health Maintenance Due Date Last Done Comments VARICELLA VACCINES (1 of 2 - 2-dose childhood series) 1982 DTaP,Tdap,and Td Vaccines (1 - Tdap) 1992 PAP SMEAR 06/21/2007 06/21/2004 INFLUENZA VACCINE (#1) 2019 PNEUMOCOCCAL 0-64 YEARS COMBINED SERIES Completed 06/23/2017 documented as of this encounter Implants Implanted Type Area Terminologist Device Identifier Shelf Expiration Model / Serial Date / Lot Pacemaker documented as of this encounter Procedures Procedure Name Priority Date/Time Associated Diagnosis Comments TROPONIN I STAT 11/07/2019 12:48 Chest pain, Results for this AM GASOLINE PUMP MECHANIC unspecified type procedure are in the results section. CBC WITH DIFFERENTIAL STAT 11/06/2019 11:24 Chest pain, Results for this PM GASOLINE PUMP MECHANIC unspecified type procedure are in the results section. CBC WITH DIFFERENTIAL Routine 11/06/2019 11:24 Chest pain, Results for this PM GASOLINE PUMP MECHANIC unspecified type procedure are in the results section. ACTIVATED PARTIAL STAT 11/06/2019 11:23 Chest pain, Results for this THRMPLAS PANDA PM GASOLINE PUMP MECHANIC unspecified type procedure are in the results section. PROTHROMBIN TIME / STAT 11/06/2019 11:23 Chest pain, Results for this INR PM GASOLINE PUMP MECHANIC unspecified type procedure are in the results section. DIGOXIN STAT 11/06/2019 11:06 Chest pain, Results for this PM GASOLINE PUMP MECHANIC unspecified type procedure are in the results section. COMP. METABOLIC PANEL STAT 11/06/2019 11:06 Chest pain, Results for this ([id number]) PM GASOLINE PUMP MECHANIC unspecified type procedure are in the results section. TROPONIN I STAT 11/06/2019 9:05 Chest pain, Results for this PM GASOLINE PUMP MECHANIC unspecified type procedure are in the results section. LIPASE STAT 11/06/2019 9:05 Chest pain, Results for this PM GASOLINE PUMP MECHANIC unspecified type procedure are in the results section. XR CHEST 2 VW STAT 11/06/2019 8:56 Chest pain, Results for this PM GASOLINE PUMP MECHANIC unspecified type procedure are in the results section. EKG-12 LEAD STAT 11/06/2019 8:37 PM GASOLINE PUMP MECHANIC documented in this encounter Results TROPONIN I (11/07/2019 12:48 AM GASOLINE PUMP MECHANIC) Pathologist [facility] TROPONIN I 0.000 <=0.034 ng/mL [facility] Specimen Blood - VENOUS Narrative Performed At Equal or Less than 0.034 ng/ml---Normal [facility] Note: Cardiac troponin begins to rise 3-4 hours after the onset of ischemia. Repeat in 4-6 hours if the sample was drawn within 3-4 hours of the onset of the symptom and found normal. Between 0.035 and 0.120 ng/mL--- Borderline. Questionable myocardial injury or necrosis Note: Serial measurement may be necessary to confirm or exclude the diagnosis of myocardial injury or necrosis; Clinical correlation (symptoms, EKGs, imaging studies, and others) required; Repeat in 4-6 hours if clinically indicated. Equal or Higher than 0.121 ng/mL---Abnormal. Myocardial Injury or Necrosis Likely Biotin has been reported to cause a negative bias, interpret results relative to patient's use of biotin. Performing Organization Address City/State/Zipcode Phone Number [facility] CLIA: [id number], [address] [place] [address] [facility] CBC WITH DIFFERENTIAL (11/06/2019 11:24 PM GASOLINE PUMP MECHANIC) Pathologist [facility] WBC 7.53 4.30 - 11.10 [facility] 10*3/L SERVICES RBC 4.66 3.93 - 5.25 [facility] 10*6/L SERVICES HGB 13.3 11.6 - 15.0 g/dL [facility] HCT 40.2 35.7 - 45.2 % [facility] MCV 86.3 80.6 - 95.5 fL [facility] MCH 28.5 25.9 - 32.8 pg [facility] MCHC 33.1 31.6 - 35.1 g/dL [facility] RDW-SD 39.5 39.0 - 49.9 fL [facility] RDW-CV 12.5 12.0 - 15.5 % [facility] PLT 253 166 - 358 [facility] 10*3/L SERVICES MPV 10.3 9.5 - 12.9 fL [facility] NRBC/100 WBC 0.0 0.0 - 10.0 /100 [facility] WBCs SERVICES NRBC x10^3 <0.01 10*3/L [facility] GRAN MAT (NEUT) % 54.0 % [facility] IMM GRAN % 0.40 % [facility] LYMPH % 37.3 % [facility] MONO % 5.8 % [facility] EOS % 2.1 % [facility] BASO % 0.4 % [facility] GRAN MAT x10^3(ANC) 4.06 1.88 - 7.09 [facility] 10*3/uL SERVICES IMM GRAN x10^3 0.03 0.00 - 0.06 [facility] 10*3/uL SERVICES LYMPH x10^3 2.81 1.32 - 3.29 [facility] 10*3/uL SERVICES MONO x10^3 0.44 0.33 - 0.92 [facility] 10*3/uL SERVICES EOS x10^3 0.16 0.03 - 0.39 [facility] 10*3/uL SERVICES BASO x10^3 0.03 0.01 - 0.07 [facility] 10*3/uL SERVICES Specimen Blood - VENOUS Performing Organization Address City/State/Zipcode Phone Number [facility] CLIA: [id number], [address] [place] [address] [facility] PROTHROMBIN TIME / INR (11/06/2019 11:23 PM GASOLINE PUMP MECHANIC) PROTIME PATIENT 11.0 10.1 - 12.6 [facility] Seconds SERVICES INR 1.0Comment: Normal [facility] INR <1.1; Warfarin SERVICES Therapeutic range 2.0 to 3.0 or 2.5 to 3.5, depending upon the indications. Specimen Blood - VENOUS Performing Organization Address City/State/Zipcode Phone Number [facility] CLIA: [id number], [address] [place] [phone] [facility] aPTT (11/06/2019 11:23 PM GASOLINE PUMP MECHANIC) APTT Patient 29 26 - 36 Seconds [facility] Specimen Blood - VENOUS Performing Organization Address City/[facility]/Zipcode Phone Number [facility] CLIA: [id number], [address] [place], [place] [phone] [facility] DIGOXIN (11/06/2019 11:06 PM GASOLINE PUMP MECHANIC) DIGOXIN 0.4 (L) 0.8 - 1.6 ng/mL [facility] Specimen Blood - VENOUS Narrative Performed At Arrythmias: 1.5 - 2.0 ng/mL [facility] Toxic Range: Greater than or equal to 2.4 ng/mL Performing Organization Address City/State/Zipcode Phone Number [facility] CLIA: [id number], [address] [place] [address] [phone] [facility] COMP. METABOLIC PANEL ([id number]) (11/06/2019 11:06 PM GASOLINE PUMP MECHANIC) NA 139 135 - 145 [facility] mmol/L SERVICES K 4.2 3.5 - 5.0 [facility] mmol/L SERVICES CL 104 98 - 108 mmol/L [facility] CO2 TOTAL 25 23 - 31 mmol/L [facility] AGAP 10 2 - 16 [facility] BUN 13 7 - 23 mg/dL [facility] GLUCOSE 106 70 - 110 mg/dL [facility] CREATININE 0.50 0.50 - 1.04 [facility] mg/dL SERVICES TOTAL BILI 0.3 0.1 - 1.1 mg/dL [facility] CALCIUM 9.6 8.6 - 10.6 [facility] mg/dL SERVICES T PROTEIN 8.0 6.3 - 8.2 g/dL [facility] ALBUMIN 4.8 3.5 - 5.0 g/dL [facility] ALK PHOS 125 (H) 34 - 122 U/L [facility] ALTv 24 5 - 35 U/L [facility] SERVICES AST(SGOT) 36 13 - 40 U/L [facility] eGFR Calculation 138.1 mL/min/1.73m2 [facility] (Non- SERVICES [place]) eGFR Calculation 167.4 mL/min/1.73m2 [facility] () SERVICES Specimen Blood - VENOUS Narrative Performed At Association of Glomerular Filtration Rate (GFR) and Staging [facility] SERVICES of Kidney Disease* + + + + | GFR (mL/min/1.73 m2) | With Kidney Damage | Without Kidney Damage + + + + | >90 | Stage one | Normal + + + + | 60-89 | Stage two | Decreased GFR + + + + | 30-59 | Stage three | Stage three + + + + | 15-29 | Stage four | Stage four + + + + | <15 (or dialysis) | Stage five | Stage five + + + + *Each stage assumes the associated GFR level has been in effect for at least three months. Stages 1 to 5, with or without kidney disease, indicate chronic kidney disease. Notes: Determination of stages one and two (with eGFR >59mL/min/1.73 m2) requires estimation of kidney damage for at least three months as defined by structural or functional abnormalities of the kidney, manifested by either: Pathological abnormalities or Markers of kidney damage (including abnormalities in the composition of the blood or urine or abnormalities in imaging tests). Performing Organization Address City/[facility]/Zipcode Phone Number [facility] CLIA: [id number], [address] [place] [phone] [facility] LIPASE, SERUM (11/06/2019 9:05 PM GASOLINE PUMP MECHANIC) LIPASE 169 0 - 220 U/L [facility] Specimen Blood - VENOUS Performing Organization Address [facility] Phone Number [facility] CLIA: [id number], [address] [place] [phone] [facility] TROPONIN I (11/06/2019 9:05 PM GASOLINE PUMP MECHANIC) TROPONIN I 0.016 <=0.034 ng/mL [facility] Specimen Blood - VENOUS Narrative Performed At Equal or Less than 0.034 ng/ml---Normal [facility] Note: Cardiac troponin begins to rise 3-4 hours after the onset of ischemia. Repeat in 4-6 hours if the sample was drawn within 3-4 hours of the onset of the symptom and found normal. Between 0.035 and 0.120 ng/mL--- Borderline. Questionable myocardial injury or necrosis Note: Serial measurement may be necessary to confirm or exclude the diagnosis of myocardial injury or necrosis; Clinical correlation (symptoms, EKGs, imaging studies, and others) required; Repeat in 4-6 hours if clinically indicated. Equal or Higher than 0.121 ng/mL---Abnormal. Myocardial Injury or Necrosis Likely Biotin has been reported to cause a negative bias, interpret results relative to patient's use of biotin. Performing Organization Address [facility]/Zipcode Phone Number [facility] CLIA: [id number], [address] [place] [address] [facility] CHEST 2 VIEWS (11/06/2019 8:56 PM GASOLINE PUMP MECHANIC) Specimen Impressions Performed At PACS/VR/DOSE No acute cardiopulmonary abnormality. Preliminary Report Dictated by Resident: Matthieu Reed MD., have reviewed this study and agree with the above report. Narrative Performed At XR CHEST 2 VW PACS/VR/DOSE HISTORY: chest pain COMPARISON: 10/28/2019 TECHNIQUE: Frontal and lateral radiographs of the chest were performed. FINDINGS: Right chest wall AICD with leads terminating in the right atrium and right ventricle. The lungs are clear. No focal consolidation, pneumothorax or pleural effusion is seen. The cardiomediastinal silhouette is normal. No acute osseous abnormality. Prior cholecystectomy. Procedure Note [facility], Radiant Results Inft User - 11/06/2019 9:14 PM GASOLINE PUMP MECHANIC XR CHEST 2 VW HISTORY: chest pain COMPARISON: 10/28/2019 TECHNIQUE: Frontal and lateral radiographs of the chest were performed. FINDINGS: Right chest wall AICD with leads terminating in the right atrium and right ventricle. The lungs are clear. No focal consolidation, pneumothorax or pleural effusion is seen. The cardiomediastinal silhouette is normal. No acute osseous abnormality. Prior cholecystectomy. IMPRESSION No acute cardiopulmonary abnormality. Preliminary Report Dictated by Resident: Matthieu Reed MD., have reviewed this study and agree with the above report. Performing Organization Address [facility]/Zipcode Phone Number [facility] documented in this encounter Visit Diagnoses Diagnosis Chest pain, unspecified type - Primary Cervicalgia Radicular pain in left arm Neuralgia, neuritis, and radiculitis, unspecified documented in this encounter Administered Medications Medication Order MAR Action Action Date Dose Rate Site sodium chloride (NS) injection 5 mL 5 mL, Intravenous, PRN, Starting 11/06/19 at 6, Until Discontinued, Routine, IV line flushing Medication Order MAR Action Action Date Dose Rate Site cyclobenzaprine (FLEXERIL) tablet 5 Given 11/07/2019 1:48 AM GASOLINE PUMP MECHANIC 5 mg mg 5 mg, Oral, ONCE NOW, 1 dose, Joellen 11/07/19 at 0200, Routine FENTanyl PF (SUBLIMAZE (PF)) injection 50 Given 11/07/2019 1:49 AM GASOLINE PUMP MECHANIC 50 mcg mcg 50 mcg, Slow IV Push, ONCE, 1 dose, Joellen 11/07/19 at 0200, STAT ketorolac (TORADOL) injection 15 mg Given 11/07/2019 1:48 AM GASOLINE PUMP MECHANIC 15 mg 15 mg, Slow IV Push, ONCE NOW, 1 dose, Joellen 11/07/19 at 0200, GIGI, [employer] lending team member approving Restricted medication: SAMANTHA LEE documented in this encounter Insurance Payer Benefit Plan / Subscriber ID Effective Phone Address Type Group Dates LYNDSEY SOLORIO xxxxxxxxx [address] [place] [id number] [place]ID [place], [place] (Work) documented as of this encounter
--- OUTSIDE RECORDS SUMMARY | 2019-11-10 19:55 | XMS REPORT | Summary of Care ---
:1980 Author Organization [facility] Address [address] [place] [address] Care Team Providers Name Role Phone Diya Mora MD Primary Care Provider Joshua Reyes Insurance Hmo Reason for Referral (Routine) Status Reason Specialty Diagnoses / Referred By Referred To Procedures Contact Contact New Request Diagnoses Palpitations Other chest pain Madelyn Procedures EVENT MONITOR LOOPING 30 DAYS MD Gucci [address] [place] [address] Reason for Visit Reason Comments Follow-up Heart Rhythm (EP) fu (Routine) Status Reason Specialty Diagnoses / Referred By Referred To Procedures Contact Contact New Request Cardiology Diagnoses Inappropriate sinus tachycardia SVT (supraventricular tachycardia) Navi Hines Procedures CONSULT CARDIAC EP/HEART RHYTHM CENTER MD [facility] [address] [place] [address] [place] [phone] Encounter Details Date Type Department Care Team Description 10/08/2019 Office Visit [facility] [place], Palpitations (Primary Dx); Cardiology, Akila Duckworth MD Other chest pain [place] [address] [place] [address] [id number] [place] [phone] Allergies Active Allergy Reactions Severity Noted Date [...] as of this encounter (statuses as of 10/08/2019) Medications Medication Sig Dispensed Refills Start Date End Date Status loratadine daily. 0 06/05/2013 Active (CLARITIN) 10 mg tablet [...] 1 mg TK 1 T PO BID 06/19/2017 Active tablet busPIRone 15 mg TK [...] by 1 08/30/2018 Active tablet mouth daily. carvedilol (COREG) Take 25 mg by 0 Active 25 mg mouth 2 (two) tabletIndications: times daily Inappropriate with meals. sinus tachycardia, Sinus tachycardia, Sick sinus syndrome, Palpitations, Atypical chest pain, Essential hypertension, History of DVT (deep vein thrombosis), PAF (paroxysmal atrial fibrillation), Dizzy spells apixaban (ELIQUIS) Take 5 mg by 0 Active 5 mg mouth 2 (two) tabletIndications: times daily. Inappropriate sinus tachycardia, Sinus tachycardia, Sick sinus syndrome, Palpitations, Atypical chest pain, Essential hypertension, History of DVT (deep vein thrombosis), PAF (paroxysmal atrial fibrillation), Dizzy spells digoxin 250 mcg Take 1 tablet 90 tablet 1 03/13/2019 Active tabletIndications: by mouth Sinus tachycardia daily. levETIRAcetam 500 Take 2 120 tablet [...] Chest pain, Pain (scale unspecified type 1-3). ranolazine 500 mg Take 500 mg 0 Discontinued 12 hr tablet by mouth 2 0 (Ineffective (two) times Medication) daily. benzonatate 100 mg Take 2 28 capsule 0 08/25/2019 Discontinued capsuleIndications capsules by 0 (Condition no : Cough mouth 3 longer warrants) (three) times daily as needed for Cough. ketorolac 10 mg Take 1 tablet 20 tablet 0 08/25/2019 Discontinued tabletIndications: by mouth 0 (Condition no Paresthesia of every 6 (six) longer warrants) lower limb hours as needed for Pain (scale 1-3). documented as of this encounter (statuses as of 10/08/2019) Active Problems Problem Noted Date Dyspnea 08/25/2019 Seizure disorder 08/25/2019 Stroke 06/15/2019 Mitral valve regurgitation 04/29/2019 Excessive anticoagulation 04/29/2019 Deep vein thrombosis of lower extremity 04/29/2019 Anxiety disorder 04/29/2019 Asthma 04/29/2019 E44.0 Moderate protein calorie malnutrition 02/06/2019 Dysphagia 08/03/2018 Iron deficiency anemia, unspecified iron deficiency anemia type 07/13/2018 Overview: Added automatically from request for surgery [id number] Abdominal pain, unspecified abdominal location 07/13/2018 Overview: Added automatically from request for surgery [id number] Nausea and vomiting, intractability of vomiting not specified, unspecified vomiting type Overview: Added automatically from request for surgery [id number] Chest pain 04/27/2018 Essential hypertension 04/27/2018 Pacemaker 04/27/2018 PAF (paroxysmal atrial fibrillation) 04/27/2018 History of cardiac pacemaker in situ 08/23/2017 Tachycardia, unspecified 06/22/2017 Elevated liver enzymes 07/23/2014 Pseudoseizure 04/15/2014 Left sided numbness 03/22/2014 Prediabetes 09/24/2013 Loss of weight 09/24/2013 Hypothyroidism 09/24/2013 Overview: ICD10 Diagnosis Term 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 Hypoglycemia 08/21/2013 Overview: ICD10 Diagnosis Term 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 documented as of this encounter (statuses as of 10/08/2019) Resolved Problems Problem Noted Date Resolved Date Metabolic syndrome X 07/23/2014 07/23/2014 documented as of this encounter (statuses as of 10/08/2019) Immunizations Name Administration Dates Next Due Pneumococcal Polysaccharide, PPSV23 (PNEUMOVAX) 06/23/2017 documented as of this encounter Social History Tobacco Use Types Packs/Day Years Used Date Former Smoker 0.3 2 Quit: 05/09/2003 Smokeless Tobacco: Never Used Quit: 08/20/2010 Comments: quit 16 years ago Alcohol Use Drinks/Week oz/Week Comments No Sex Assigned at Date Recorded Not on file Job Start Date Occupation Industry Not on file Not on file Not on file Travel History Travel Start Travel End No recent travel history available. documented as of this encounter Last Filed Vital Signs Vital Sign Reading Time Taken Comments Blood Pressure 117/82 10/08/2019 8:59 AM CONCHE OPERATOR Pulse 93 10/08/2019 8:59 AM CONCHE OPERATOR Temperature - - Respiratory Rate - - Oxygen Saturation 96% 10/08/2019 8:59 AM CONCHE OPERATOR Inhaled Oxygen Concentration - - Weight 51 kg (112 lb 6.4 oz) 10/08/2019 8:59 AM CONCHE OPERATOR Height 148.6 cm (4' 10.5") 10/08/2019 8:59 AM CONCHE OPERATOR Body Mass Index 23.09 10/08/2019 8:59 AM CONCHE OPERATOR documented in this encounter Progress Notes Austen Elizondo - 10/08/2019 9:00 AM CST39 year old female has been identified by and name. Previous/Current Encounter Diagnosis: No diagnosis found. 12 Lead EKG was performed as ordered. The patient tolerated the procedure well. Dr johnson was notified and provided with a copy of the EKG for review. Gucci Yang MD - 10/08/2019 9:00 AM CST Cardiac EP Heart Rhythm Center Note Reason for Evaluation / Chief Complaint: chest pains and palpitations Referring Provider: Dr. Hines HPI: Jenni Rivera is a 39 year old female with h/o atrial fibrillation, " mini strokes," syncope s/p ILR with pauses -> pacemaker implant by Dr. Parmar complicated by infection x 2 moved to right side, asthma/bronchitis, past tobacco use, palpitations, referred for second opinion. She was seen byDr. Sheehan for palpitations, and evaluation revealed sinus tachycardia. She stated that for 2019 she noticed sob, chest pains, and palpitations multiple times per month (not daily). She is better with rest and worse with exertion. She denied syncope after pacemaker. Past Medical History: Diagnosis Date A-fib Anemia during Anxiety ASD (atrial septal defect) Asthma 1989 Asthma Atrophic vaginitis chronic Bipolar 1 disorder 1994 CHF (congestive heart failure) COPD (chronic obstructive pulmonary disease) CVA (cerebral vascular accident) DVT (deep venous thrombosis) Endometriosis s/p HYST GERD (gastroesophageal reflux disease) HIV antibody positive 2003 But Western Blot Test was negative. No repeating test done HTN (hypertension) Hx of hysterectomy for benign disease Hypothyroid 2002 Infection infected pacemaker, s/p re-insertion Menorrhagia s/p HYST Migraine Mitral valve prolapse Nephrolithiasis chronic Neuropathy Neuropathy Seizure 1994 last epside was roughly in 2015 Sick sinus syndrome TIA (transient ischemic attack) Transaminitis Social History Socioeconomic History Marital status: Spouse name: Not on file Number of children: Not on file Years of education: Not on file Highest education level: Not on file Occupational History Not on file Social Needs Financial resource strain: Not on file Food insecurity: Worry: Not on file Inability: Not on file Transportation needs: Medical: Not on file Non-medical: Not on file Tobacco Use Smoking status: Former Smoker Packs/day: 0.30 Years: 2.00 Pack years: 0.60 Last attempt to quit: 05/09/2003 Years since quittin.4 Smokeless tobacco: Never Used Tobacco comment: quit 16 years ago Substance and Sexual Activity Alcohol use: No Drug use: Not Currently Comment: used cocaine x 2 in 2000 Sexual activity: Not on file Lifestyle Physical activity: Days per week: Not on file Minutes per session: Not on file Stress: Not on file Relationships Social connections: Talks on phone: Not on file Gets together: Not on file Attends gnosticism service: Not on file Active member of club or organization: Not on file Attends meetings of clubs or organizations: Not on file Relationship status: Not on file Intimate partner violence: Fear of current or ex partner: Not on file Emotionally abused: Not on file Physically abused: Not on file Forced sexual activity: Not on file Other Topics Concern Not on file Social History Narrative Not on file Family History Problem Relation Age of Onset Diabetes Paternal Grandmother Heart Paternal Grandmother Stroke Paternal Grandmother Other - see comments Paternal Grandmother bleed from colon GI Paternal Grandfather Thyroid Paternal Grandfather Stroke Father Hypertension Father Thyroid Father High cholesterol Father DVT (deep venous thrombosis) Father RLE Other - see comments Father GERD Thyroid Mother Neurological Son Epilepsy Asthma Son Bipolar disorder Son Genetic Son Autism Allergies Allergen Reactions Aluminum Aspirin Anaphylaxis Asa [Aspirin] Anaphylaxis Fish Containing Products Anaphylaxis Family history of allergic reaction. Morphine Anaphylaxis Penicillin Anaphylaxis Diltiazem Shortness of Breath Benadryl [Diphenhydramine Hcl] Hives Cardizem [Diltiazem Hcl] Shortness of Breath Ciprofloxacin Other - See comments Muscle aches Clindamycin Rash Coconut Rash Codeine Rash Has recently taken codeine Detrol [Tolterodine Tartrate] Rash Doxycycline Rash Fish [Seafood/Fish] Rash and Swelling Gabapentin Rash Iodine Rash Ivabradine Rash Latex Rash "blisters" Penicillins Anaphylaxis Seroquel [Quetiapine Fumarate] Rash Tramadol Unknown - See comments Rash Adhesive Tape-Silicones Rash Can use papertape. Cefixime Rash Sulfa (Sulfonamide Antibiotics) Rash Current Outpatient Medications Medication Sig Dispense Refill acetaminophen-codeine (TYLENOL-CODEINE #3) 300-30 mg tablet Take 1 tablet by mouth every 4 (four) hours as needed for Pain (scale 1-3). 30 tablet 0 sucralfate (CARAFATE) 100 mg/mL suspension Take 10 mL by mouth before meals and at bedtime. 1200mL 2 ranolazine 500 mg 12 hr tablet Take 500 mg by mouth 2 (two) times daily. levETIRAcetam 500 mg tablet Take 2 tablets by mouth 2 (two) times daily. 120 tablet 6 digoxin 250 mcg tablet Take 1 tablet by mouth daily. 90 tablet 1 apixaban (ELIQUIS) 5 mg tablet Take 5 mg by mouth 2 (two) times daily. carvedilol (COREG) 25 mg tablet Take 25 mg by mouth 2 (two) times daily with meals. atorvastatin 10 mg tablet Take 10 mg by mouth daily. 1 ALPRAZolam (XANAX) 0.25 mg tablet Take 0.25 mg by mouth at bedtime as needed. fluticasone-vilanterol (BREO ELLIPTA) 100-25 mcg/dose DsDv Inhale 1 Puff daily. tiotropium 18 mcg inhalation Inhale 18 mcg daily. ABILIFY 10 mg tablet TK 1 T PO QHS 1 ABILIFY 5 mg tablet TK 1 T PO D, in am 1 benztropine 1 mg tablet TK 1 T PO BID 1 busPIRone 15 mg tablet TK 1 T PO BID 1 topiramate 100 mg tablet TK 1 T PO HS 1 venlafaxine XR 150 mg 24 hr capsule TK 1 C PO HS 1 DALIRESP 500 mcg Tab daily. albuterol (ACCUNEB) 1.25 mg/3 mL nebulizer solution Use 1 Ampule as directed every 6 (six) hoursas needed. ALBUTEROL SULFATE (PROAIR HFA INHALE) Inhale. loratadine (CLARITIN) 10 mg tablet daily. blood sugar diagnostic (TRUETEST TEST STRIPS) strip Use as directed. R 73.03. Check once daily 100 Strip 3 lancets (TRUEPLUS LANCETS) 33 gauge Misc Use as directed. R 73.03, Check once daily 100 Each 3 Levothyroxine 150 mcg capsule Take 150 mcg by mouth daily. No current facility-administered medications for this visit. Review of Systems: General: denies complaint Eyes: denies complaint Ears/Nose/Mouth/Throat: denies complaint Cardiovascular: as per hpi Respiratory: as per hpi Gastrointestinal: denies complaint Genital/urinary: denies complaint Musculoskeletal: joint pains Skin: denies complaint Neurologic: "mini strokes" with left sided weakness Psychiatric: denies complaint Endocrine: denies complaint Hematologic: denies complaint Allergy/Immunology: denies complaint Physical Exam: Vitals: Vitals: 10/08/19 0859 BP: 117/82 BP Location: Right arm Patient Position: Sitting BP CUFF SIZE: Adult Small Pulse: 93 SpO2: 96% Weight: 112 lb 6.4 oz (51 kg) Height: 4' 10.5" (1.486 m) Appearance: Well developed and well nourished female in no acute distress; however, she complained of chest pains and shortness of breath during exam. Eyes: Remarkable for glasses Cardiovascular: regular rate and regular rhythm; no rubs or gallops; no murmur. Respiratory: clear to auscultation bilateral Musculoskeletal: restricted range of motion, and ambulates with assistance. Uses cane Neurologic: Alert and oriented x 4. She reported left sided weakness with need to use cane; however, after exam during objective observation she appeared to move left upper and lower extremities without limitations. She bent over and picked up her purse on the floor with her left arm, and put it onher left shoulder. She walked without limitation almost dragging her her cane and switching arms touse cane without change in her gait which appeared normal. Psychiatric: Pleasant, no suicidal or homicidal ideation. Skin: Device wound in the right infraclavicular fossa is without infection or hematoma LABS / DATA: CBC WBC x10^3 (/uL) Date Value 03/24/2014 5.6 WBC (10*3/L) Date Value 09/28/2019 7.91 RBC x10^6 (/uL) Date Value 03/24/2014 4.51 RBC (10*6/L) Date Value 09/28/2019 4.69 PLT x10^3 (/uL) Date Value 03/24/2014 220 PLT (10*3/L) Date Value 09/28/2019 235 HGB Date Value 09/28/2019 13.2 g/dL 03/24/2014 13.0 G/DL HCT (%) Date Value 09/28/2019 41.3 03/24/2014 38.8 BMP NA Date Value 09/28/2019 141 mmol/L 03/24/2014 136 MMOL/L SODIUM-Q (mmol/L) Date Value 07/23/2014 145 K Date Value 09/28/2019 4.5 mmol/L 03/24/2014 4.2 MMOL/L POTASSIUM-Q (mmol/L) Date Value 07/23/2014 4.9 CALCIUM Date Value 09/28/2019 10.1 mg/dL 03/24/2014 9.3 MG/DL CALCIUM-Q (mg/dL) Date Value 07/23/2014 10.3 (H) CL Date Value 09/28/2019 104 mmol/L 03/24/2014 98 MMOL/L CHLORIDE-Q (mmol/L) Date Value 07/23/2014 105 BUN Date Value 09/28/2019 12 mg/dL 03/24/2014 20 MG/DL UREA NITROGEN (BUN)-Q (mg/dL) Date Value 07/23/2014 12 CREATININE Date Value 09/28/2019 0.60 mg/dL 03/24/2014 0.71 MG/DL CREATININE-Q (mg/dL) Date Value 07/23/2014 0.70 GLUCOSE Date Value 09/28/2019 105 mg/dL 03/24/2014 114 MG/DL (H) GLUCOSE-Q (mg/dL) Date Value 07/23/2014 93 CO2 TOTAL Date Value 09/28/2019 30 mmol/L 03/24/2014 30 MMOL/L CARBON DIOXIDE-Q (mmol/L) Date Value 07/23/2014 24 Hepatic Function Panel ALBUMIN Date Value 09/28/2019 4.9 g/dL 03/22/2014 4.1 G/DL ALBUMIN-Q (g/dL) Date Value 07/23/2014 4.8 T PROTEIN Date Value 09/28/2019 9.1 g/dL (H) 03/22/2014 7.0 G/DL PROTEIN, TOTAL-Q (g/dL) Date Value 07/23/2014 7.7 TOTAL BILI Date Value 09/28/2019 0.5 mg/dL 03/22/2014 0.8 MG/DL BILIRUBIN, TOTAL-Q (mg/dL) Date Value 07/23/2014 0.3 BILI UNCON Date Value 09/28/2019 0.1 mg/dL 03/22/2014 0.4 MG/DL BILI CONJ Date Value 09/28/2019 0.0 mg/dL 03/22/2014 0.0 MG/DL ALT(SGPT) (U/L) Date Value 05/30/2019 26 03/22/2014 68 (H) ALT-Q (U/L) Date Value 07/23/2014 24 ALTv (U/L) Date Value 09/28/2019 16 AST(SGOT) (U/L) Date Value 09/28/2019 46 (H) 03/22/2014 59 (H) AST-Q (U/L) Date Value 07/23/2014 23 ALK PHOS (U/L) Date Value 09/28/2019 126 (H) 03/22/2014 107 ALKALINE PHOSPHATASE-Q (U/L) Date Value 07/23/2014 121 (H) PROTIME (SEC) Date Value 03/22/2014 13.2 PROTIME PATIENT (Seconds) Date Value 06/15/2019 12.0 TSH Date Value 08/03/2018 2.14 mIU/L 12/01/2005 2.72 uIU/mL TSH, 3RD GENERATION-Q (mIU/L) Date Value 07/23/2014 4.25 EC10-08-2019: interpreted by me: narrow complex tachycardia at 102bpm; pr 138ms; qrs 82ms; qtc 432ms; Pwave in aVL atypical for sinus; however, all other lead suggest sinus origin. 09-28-2019: sinus tachycardia at 108 bpm; pr 126ms; qrs 88ms; qtc 452ms Telemetry/Holter/Loop Monitor: N/a Echocardiogram: : LA 2.1cm; LV 0.79cm thick; LVEF 55-60% Cardiac Cath: N/a Stress Testing: N/a Radiology/X-ray: : Cardiac CT: calcium score zero; no cad seen Cardiac Device Evaluation: Evaluation performed: Device: St. JudeDual lead Pacemaker. Model#: 2272 Mode: ddd 60-125 bpm Battery: 10 yrs Atrial Lead: 0.1 % pacing Sensin mV Impedance: 438 Ohms Threshold: 1 V @ 0.4 ms Right Ventricular Lead: 0.06 % pacing Sensin.5 mV Impedance: 425 Ohms Threshold: 1 V @ 0.4 ms Arrhythmias: events suggestive of sinus tachycardia Other:n/a Impression: episodes of chest pains and sob with palpitations. Will recommend 30 day looping event recorder to correlate objective rhythm with subjective complaints. Recommendation(s): 1. As above 2. F/u ep after above 3. F/u PCP and cardiology as scheduled 4. D/c ranexa as patient states it is not helping her symptoms, and she has no evidence of cad 5. ER warnings Thank you for allowing us to participate in the care of your patient. Please feel free to contact us for any questions or if we can be of further assistance. Gucci Johnson MD 10/08/2019 9:22 AM Angelina Bill MA - 10/08/2019 9:00 AM CST Chief Complaint Patient presents with Follow-up Heart Rhythm (EP) bryan Rivera came into clinic with no complaints and no distress noted. documented in this encounter Plan of Treatment Date Type Specialty Care Team Description 11/22/2019 Nurse Visit Cardiology Visit, Adc Nurse 11/22/2019 Office Visit Cardiology Navi Hines MD [address] [place] [address] [place] [phone] 12/10/2019 Office Visit Cardiology Gucci Johnson MD [address] [place] [address] Name Type Priority Associated Diagnoses Order Schedule EKG-12 LEAD ROUTINE HEART STATION Routine Palpitations Ordered: 10/08/2019 Other chest pain EVENT MONITOR PROCEDURES Routine Palpitations Ordered: 10/08/2019 LOOPING 30 DAYS Other chest pain Health Maintenance Due Date Last Done Comments VARICELLA VACCINES (1 of 2 - 2-dose childhood series) 1982 DTaP,Tdap,and Td Vaccines (1 - Tdap) 1992 PAP SMEAR 06/21/2007 06/21/2004 INFLUENZA VACCINE (#1) 2019 PNEUMOCOCCAL 0-64 YEARS COMBINED SERIES Completed 06/23/2017 documented as of this encounter Implants Implanted Type Area Paint Coating Machine Operator Device Identifier Shelf Expiration Model / Serial Date / Lot Pacemaker documented as of this encounter Results Not on filedocumented in this encounter Visit Diagnoses Diagnosis Palpitations - Primary Other chest pain documented in this encounter Insurance Payer Benefit Plan / Subscriber ID Effective Phone Address Type Group Dates LYNDSEY SOLORIO xxxxxxxxx 2011-Kobe Amaro O [place] [address] MANAGED MEDICAID [place] (Work) documented as of this encounter
--- OUTSIDE RECORDS SUMMARY | 2019-11-10 19:55 | XMS REPORT | Summary of Care ---
:1980 Author Organization [facility] Address [address] [place] [id number] Care Team Providers Name Role Phone Diya Mora MD Primary Care Provider Joshua Reyes Insurance Hmo Reason for Referral (Routine) Status Reason Specialty Diagnoses / Referred By Referred To Procedures Contact Contact New Request Diagnoses Palpitations Other chest pain Madelyn Procedures EVENT MONITOR LOOPING 30 DAYS MD [address] [place] [address] Reason for Visit Reason Comments Follow-up Heart Rhythm (EP) fu (Routine) Status Reason Specialty Diagnoses / Referred By Referred To Procedures Contact Contact New Request Cardiology Diagnoses Inappropriate sinus tachycardia SVT (supraventricular tachycardia) Navi Hines Procedures CONSULT CARDIAC EP/HEART RHYTHM CENTER MD [facility] [address] [place] [address] [place] [phone] Encounter Details Date Type Department Care Team Description 10/08/2019 Office Visit [facility] [place], Palpitations (Primary Dx); Cardiology, Akila Duckworth MD Other chest pain [place] [address] [place] [address] [phone] [place] [phone] Allergies Active Allergy Reactions Severity Noted Date [...] Overview: Added automatically from request for surgery [id number] Abdominal pain, unspecified abdominal location 07/13/2018 Overview: Added automatically from request for surgery [id number] Nausea and vomiting, intractability of vomiting not specified, unspecified vomiting type Overview: Added automatically from request for surgery [id number] Chest pain 04/27/2018 Essential hypertension 04/27/2018 Pacemaker 04/27/2018 PAF (paroxysmal atrial fibrillation) 04/27/2018 History of cardiac pacemaker in situ 08/23/2017 Tachycardia, unspecified 06/22/2017 Elevated liver enzymes 07/23/2014 Pseudoseizure 04/15/2014 Left sided numbness 03/22/2014 Prediabetes 09/24/2013 Loss of weight 09/24/2013 Hypothyroidism 09/24/2013 Overview: ICD10 Diagnosis Term 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 Utility Hypoglycemia 08/21/2013 Overview: ICD10 Diagnosis Term 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 Utility documented as of this encounter (statuses [...] Comments Blood Pressure 117/82 10/08/2019 8:59 AM PRICING SUPERVISOR Pulse 93 10/08/2019 8:59 AM PRICING SUPERVISOR Temperature - - Respiratory Rate - - Oxygen Saturation 96% 10/08/2019 8:59 AM PRICING SUPERVISOR Inhaled Oxygen Concentration - - Weight 51 kg (112 lb 6.4 oz) 10/08/2019 8:59 AM PRICING SUPERVISOR Height 148.6 cm (4' 10.5") 10/08/2019 8:59 AM PRICING SUPERVISOR Body Mass Index 23.09 10/08/2019 8:59 AM PRICING SUPERVISOR documented in this encounter Progress Notes Austen [...] file Gets together: Not on file Attends buddhism service: Not on file Active member of [...] Hines MD [address] [place] [address] [place] [phone] 12/10/2019 Office Visit Cardiology Gucci Johnson MD [address] [place] [address] Name Type Priority Associated Diagnoses [...] of this encounter Implants Implanted Type Area Sleep Manager Device Identifier Shelf Expiration Model / Serial Date / Lot Pacemaker documented as of this encounter Results Not on filedocumented in this encounter Visit Diagnoses Diagnosis Palpitations - Primary Other chest pain documented in this encounter Insurance Payer Benefit Plan / Subscriber ID Effective Phone Address Type Group Dates LYNDSEY SOLORIO xxxxxxxxx 2011-Kobe Amaro O [place] Medicaid [facility] [place] [facility] [place] [address] MANAGED MEDICAID [place] (Work) documented as of this encounter
--- OUTSIDE RECORDS SUMMARY | 2019-11-10 19:55 | XMS REPORT | Summary of Care ---
:1980 Author Organization [facility] [employer] [facility] Address [address] [place] [id number] Care Team Providers Name Role Phone Diya Mora MD Primary Care Provider Joshua Reyes Insurance Hmo Reason for Visit Reason Comments Refill Request Sucralfate (CARAFATE) 100 mg/mL suspension // Pharmacy Request Encounter Details Date Type Department Care Team Description 10/07/2019 Telephone [facility] [place], Refill Request GASTROENTEROLOGY -Tashi Shearer MD (Sucralfate [address] (CARAFATE) 100 mg/mL [address] [place] [address] suspension // [address] Pharmacy Request) [place] [address] [place], [place] [phone] Allergies Active Allergy Reactions Severity Noted Date [...] Start Date End Date Status loratadine (CLARITIN) daily. 0 06/05/2013 Active 10 mg tablet ALBUTEROL [...] BID 06/19/2017 Active tablet busPIRone 15 mg tablet TK 1 T PO BID 06/16/2017 Active topiramate 100 mg TK 1 T PO HS 1 06/16/2017 Active tablet venlafaxine XR 150 mg TK 1 C PO HS 06/16/2017 Active 24 hr capsule fluticasone-vilanterol Inhale [...] 08/30/2018 Active tablet mouth daily. carvedilol (COREG) 25 Take 25 mg by 0 Active mg tabletIndications: mouth 2 (two) Inappropriate sinus times daily with tachycardia, Sinus meals. tachycardia, Sick sinus syndrome, Palpitations, Atypical chest pain, Essential hypertension, History of DVT (deep vein thrombosis), PAF (paroxysmal atrial fibrillation), Dizzy spells apixaban (ELIQUIS) 5 Take 5 mg by 0 Active mg tabletIndications: mouth 2 (two) Inappropriate sinus times daily. tachycardia, Sinus tachycardia, Sick sinus syndrome, Palpitations, Atypical chest pain, Essential hypertension, History of DVT (deep vein thrombosis), PAF (paroxysmal atrial fibrillation), Dizzy spells digoxin 250 mcg Take 1 tablet by 90 tablet 1 03/13/2019 Active tabletIndications: mouth daily. Sinus tachycardia levETIRAcetam 500 mg Take 2 tablets by [...] Pain Chest pain, (scale 1-3). unspecified type documented as of this encounter (statuses as [...] Overview: Added automatically from request for surgery [id number] Abdominal pain, unspecified abdominal location 07/13/2018 Overview: Added automatically from request for surgery [id number] Nausea and vomiting, intractability of vomiting not specified, unspecified vomiting type Overview: Added automatically from request for surgery [id number] Chest pain 04/27/2018 Essential hypertension 04/27/2018 Pacemaker 04/27/2018 PAF (paroxysmal atrial fibrillation) 04/27/2018 History of cardiac pacemaker in situ 08/23/2017 Tachycardia, unspecified 06/22/2017 Elevated liver enzymes 07/23/2014 Pseudoseizure 04/15/2014 Left sided numbness 03/22/2014 Prediabetes 09/24/2013 Loss of weight 09/24/2013 Hypothyroidism 09/24/2013 Overview: ICD10 Diagnosis Term 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 Wire Photo Operator Utility Hypoglycemia 08/21/2013 Overview: ICD10 Diagnosis Term News Wire Photo Operator Utility documented as of this encounter [...] Hines MD [address] DESOUZA [address] [place] [phone] 12/10/2019 Office Visit Cardiology Gucci Joshi MD [address] [place] [address] [phone] Health Maintenance Due Date Last Done Comments VARICELLA VACCINES (1 of 2 - 2-dose childhood series) 1982 DTaP,Tdap,and Td Vaccines (1 - Tdap) 1992 PAP SMEAR 06/21/2007 06/21/2004 INFLUENZA VACCINE (#1) 2019 PNEUMOCOCCAL 0-64 YEARS COMBINED SERIES Completed 06/23/2017 documented as of this encounter Implants Implanted Type Area Aircraft De Icer Installer Device Identifier Shelf Expiration Model / Serial Date / Lot Pacemaker documented as of this encounter Results Not on filedocumented in this encounter Insurance Payer Benefit Plan / Subscriber ID Effective Phone Address Type Group Dates LYNDSEY SOLORIO xxxxxxxxx 2011-Kobe PERALTA Medicaid HEALTHCARE [place] [facility] [place] [place] [id number] MANAGED MEDICAID [place]ICA[place] documented as of this encounter
--- OUTSIDE RECORDS SUMMARY | 2019-11-10 19:56 | XMS REPORT | Summary of Care ---
:1980 Author Organization [facility] Address [address] [place] [address] Care Team Providers Name Role Phone Diya Mora MD Primary Care Provider Joshua Reyes Insurance Hmo Reason for Visit Reason Comments Notification Encounter Details Date Type Department Care Team Description 10/28/[address] [facility] CardiologyAkila, Danuta [facility] MD Gucci [address] [place] [phone] [place] [address] Allergies Active Allergy Reactions Severity Noted Date [...] as of this encounter (statuses as of 10/28/2019) Medications Medication Sig Dispensed Refills Start Date End Date Status loratadine (CLARITIN) daily. 0 06/05/2013 Suspended 10 mg tablet ALBUTEROL SULFATE Inhale. 0 Suspended (PROAIR HFA INHALE) albuterol (ACCUNEB) Use 1 Ampule as 0 Suspended 1.25 mg/3 mL directed every 6 nebulizer solution (six) hours as needed. DALIRESP 500 mcg Tab daily. 0 08/25/2013 Suspended ABILIFY 10 mg tablet TK 1 T PO QHS 1 06/16/2017 Suspended ABILIFY 5 mg tablet TK 1 T PO D, in 1 06/16/2017 Suspended am benztropine 1 mg TK 1 T PO BID 1 06/19/2017 Suspended tablet busPIRone 15 mg TK 1 T PO BID 1 06/16/2017 Suspended tablet topiramate 100 mg TK 1 T PO HS 1 06/16/2017 Suspended tablet venlafaxine XR 150 mg TK 1 C PO HS 1 06/16/2017 Suspended 24 hr capsule fluticasone-vilantero Inhale 1 Puff 0 Suspended l (BREO ELLIPTA) daily. 100-25 mcg/dose DsDv tiotropium 18 mcg Inhale 18 mcg 0 Suspended inhalation daily. ALPRAZolam (XANAX) Take 0.25 mg by 0 Suspended 0.25 mg mouth at bedtime tabletIndications: as needed. History of DVT (deep vein thrombosis), Sick sinus syndrome, Tachycardia, Pain in pacemaker pocket Levothyroxine 150 mcg Take 150 mcg by 0 Suspended capsule mouth daily. blood sugar Use as directed. 100 Strip 3 07/18/2018 Suspended diagnostic (TRUETEST R 73.03. Check TEST STRIPS) once daily stripIndications: Prediabetes Additional information lancets (TRUEPLUS LANCETS) 33 Use as directed. R 100 Each 3 07/18/2018 Suspended gauge MiscIndications: 73.03, Check once Prediabetes daily Additional information atorvastatin 10 mg tablet Take 10 mg by mouth 1 08/30/2018 Suspended daily. carvedilol (COREG) 25 mg Take 25 mg by mouth 2 0 Suspended tabletIndications: (two) times daily Inappropriate sinus with meals. tachycardia, Sinus tachycardia, Sick sinus syndrome, Palpitations, Atypical chest pain, Essential hypertension, History of DVT (deep vein thrombosis), PAF (paroxysmal atrial fibrillation), Dizzy spells apixaban (ELIQUIS) 5 mg Take 5 mg by mouth 2 0 Suspended tabletIndications: (two) times daily. Inappropriate sinus tachycardia, Sinus tachycardia, Sick sinus syndrome, Palpitations, Atypical chest pain, Essential hypertension, History of DVT (deep vein thrombosis), PAF (paroxysmal atrial fibrillation), Dizzy spells digoxin 250 mcg Take 1 tablet by 90 tablet 1 03/13/2019 Suspended tabletIndications: Sinus mouth daily. tachycardia Additional information levETIRAcetam 500 mg Take 2 tablets by 120 tablet 6 04/22/2019 Suspended tabletIndications: Seizure mouth 2 (two) times cerebral daily. Additional information sucralfate (CARAFATE) 100 Take 10 mL by mouth 1200 mL 2 05/22/2019 Suspended mg/mL suspension before meals and at bedtime. Additional information acetaminophen-codeine Take 1 tablet by 30 tablet 0 09/28/2019 Suspended (TYLENOL-CODEINE #3) 300-30 mg mouth every 4 tabletIndications: Chest pain, (four) hours as unspecified type needed for Pain (scale 1-3). Additional information documented as of this encounter (statuses as of 10/28/2019) Active Problems Problem Noted Date Dyspnea 08/25/2019 Seizure disorder 08/25/2019 Stroke 06/15/2019 Mitral valve regurgitation 04/29/2019 Excessive anticoagulation 04/29/2019 Deep vein thrombosis of lower extremity 04/29/2019 Anxiety disorder 04/29/2019 Asthma 04/29/2019 E44.0 Moderate protein calorie malnutrition 02/06/2019 Dysphagia 08/03/2018 Iron deficiency anemia, unspecified iron deficiency anemia type 07/13/2018 Overview: Added automatically from request for surgery [id number] Abdominal pain, unspecified abdominal location 07/13/2018 Overview: Added automatically from request for surgery [id number] Nausea and vomiting, intractability of vomiting not specified, unspecified vomiting type Overview: Added automatically from request for surgery [id number] Chest pain 04/27/2018 Essential hypertension 04/27/2018 Pacemaker 04/27/2018 PAF (paroxysmal atrial fibrillation) 04/27/2018 History of cardiac pacemaker in situ 08/23/2017 Tachycardia, unspecified 06/22/2017 Elevated liver enzymes 07/23/2014 Pseudoseizure 04/15/2014 Left sided numbness 03/22/2014 Prediabetes 09/24/2013 Loss of weight 09/24/2013 Hypothyroidism 09/24/2013 Overview: ICD10 Diagnosis Term Cycle Specialist Utility Hypoglycemia 08/21/2013 Overview: ICD10 Diagnosis Term Cycle Specialist Utility documented as of this encounter (statuses as of 10/28/2019) Resolved Problems Problem Noted Date Resolved Date Metabolic syndrome X 07/23/2014 07/23/2014 documented as of this encounter (statuses as of 10/28/2019) Immunizations Name Administration Dates Next Due Pneumococcal [...] Cardiology Gucci Joshi MD [address] [place] [address] 12/10/2019 Office Visit Cardiology Navi Hines MD [address] [place] [address] [place] [phone] Health Maintenance Due Date Last Done Comments VARICELLA VACCINES (1 of 2 - 2-dose childhood series) 1982 DTaP,Tdap,and Td Vaccines (1 - Tdap) 1992 PAP SMEAR 06/21/2007 06/21/2004 INFLUENZA VACCINE (#1) 2019 PNEUMOCOCCAL 0-64 YEARS COMBINED SERIES Completed 06/23/2017 documented as of this encounter Implants Implanted Type Area Agile Business Analyst Device Identifier Shelf Expiration Model / Serial Date / Lot Pacemaker documented as of this encounter Results Not on filedocumented in this encounter Insurance Payer Benefit Plan / Subscriber ID Effective Phone Address Type Group Dates LYNDSEY SOLORIO xxxxxxxxx 2011-Kobe PERAL[place] [id number] [place] MEDICAID [place], [place] documented as of this encounter
--- OUTSIDE RECORDS SUMMARY | 2019-11-10 19:56 | XMS REPORT | Summary of Care ---
:1980 Author Organization [facility] Address [address] [place] [address] Care Team Providers Name Role Phone Diya Mora MD Primary Care Provider Joshua Reyes Insurance Hmo Reason for Visit Reason Comments Refill Request Encounter Details Date Type Department Care Team Description 10/10/2019 Telephone [facility] GASTROENTEROLOGY Larisa Lyles Request -[facility] MD Manfred [address] [place] [phone] [address] [place] [phone] Allergies Active Allergy Reactions Severity Noted Date [...] as of this encounter (statuses as of 10/10/2019) Medications Medication Sig Dispensed Refills Start Date [...] as of this encounter (statuses as of 10/10/2019) Active Problems Problem Noted Date Dyspnea 08/25/2019 Seizure disorder 08/25/2019 Stroke 06/15/2019 Mitral valve regurgitation 04/29/2019 Excessive anticoagulation 04/29/2019 Deep vein thrombosis of lower extremity 04/29/2019 Anxiety disorder 04/29/2019 Asthma 04/29/2019 E44.0 Moderate protein calorie malnutrition 02/06/2019 Dysphagia 08/03/2018 Iron deficiency anemia, unspecified iron deficiency anemia type 07/13/2018 Overview: Added automatically from request for surgery [id number] Abdominal pain, unspecified abdominal location 07/13/2018 Overview: Added automatically from request for surgery [id number] Nausea and vomiting, intractability of vomiting not specified, unspecified vomiting type Overview: Added automatically from request for surgery [id number] Chest pain 04/27/2018 Essential hypertension 04/27/2018 Pacemaker 04/27/2018 PAF (paroxysmal atrial fibrillation) 04/27/2018 History of cardiac pacemaker in situ 08/23/2017 Tachycardia, unspecified 06/22/2017 Elevated liver enzymes 07/23/2014 Pseudoseizure 04/15/2014 Left sided numbness 03/22/2014 Prediabetes 09/24/2013 Loss of weight 09/24/2013 Hypothyroidism 09/24/2013 Overview: ICD10 Diagnosis Term Automotive Parts Clerk Utility Hypoglycemia 08/21/2013 Overview: ICD10 Diagnosis Term Automotive Parts Clerk Utility documented as of this encounter (statuses as of 10/10/2019) Resolved Problems Problem Noted Date Resolved Date Metabolic syndrome X 07/23/2014 07/23/2014 documented as of this encounter (statuses as of 10/10/2019) Immunizations Name Administration Dates Next Due Pneumococcal [...] Hines MD [address] [place] [phone] 12/10/2019 Office Visit Cardiology Gucci Joshi MD [address] [place] [address] Health Maintenance Due Date Last Done Comments VARICELLA VACCINES (1 of 2 - 2-dose childhood series) 1982 DTaP,Tdap,and Td Vaccines (1 - Tdap) 1992 PAP SMEAR 06/21/2007 06/21/2004 INFLUENZA VACCINE (#1) 2019 PNEUMOCOCCAL 0-64 YEARS COMBINED SERIES Completed 06/23/2017 documented as of this encounter Implants Implanted Type Area Hand Decorator Device Identifier Shelf Expiration Model / Serial Date / Lot Pacemaker documented as of this encounter Results Not on filedocumented in this encounter Insurance Payer Benefit Plan / Subscriber ID Effective Phone Address Type Group Dates LYNDSEY SOLORIO xxxxxxxxx 2011-Kobe Pr[address] Medicaid [place] [facility] [place] [id number] MANAGED MEDICAID [place] documented as of this encounter
--- OUTSIDE RECORDS SUMMARY | 2019-11-10 19:56 | XMS REPORT | Summary of Care ---
:1980 Author Organization [facility] Address [address] [place] [address] Care Team Providers Name Role Phone Diya Mora MD Primary Care Provider Joshua Reyes Insurance Hmo Reason for Visit Reason Comments Talk To Nurse Encounter Details Date Type Department Care Team Description 10/28/2019 Telephone [facility] CardiologyMadelyn, Talk To Nurse [facility] MD Gucci [address] [place] [phone] [place] [address] Allergies Active Allergy Reactions Severity [...] Status loratadine (CLARITIN) as needed. 0 06/05/2013 Suspended 10 mg tablet ALBUTEROL [...] needed for Pain (scale 1-3). Additional information pregabalin (LYRICA) 25 mg capsule Take 25 mg by mouth at bedtime. 0 Suspended documented as of this encounter (statuses as [...] Overview: Added automatically from request for surgery [id number] Abdominal pain, unspecified abdominal location 07/13/2018 Overview: Added automatically from request for surgery [id number] Nausea and vomiting, intractability of vomiting not specified, unspecified vomiting type Overview: Added automatically from request for surgery [id number] Chest pain 04/27/2018 Essential hypertension 04/27/2018 Pacemaker 04/27/2018 PAF (paroxysmal atrial fibrillation) 04/27/2018 History of cardiac pacemaker in situ 08/23/2017 Tachycardia, unspecified 06/22/2017 Elevated liver enzymes 07/23/2014 Pseudoseizure 04/15/2014 Left sided numbness 03/22/2014 Prediabetes 09/24/2013 Loss of weight 09/24/2013 Hypothyroidism 09/24/2013 Overview: ICD10 Diagnosis Term Husker Operator Utility Hypoglycemia 08/21/2013 Overview: ICD10 Diagnosis Term Husker Operator Utility documented as of this encounter [...] Cardiology Gucci Joshi MD [address] [place] [address] 12/10/2019 Office Visit Cardiology Navi Hines MD [address] [place] [phone] Health Maintenance Due Date Last Done Comments VARICELLA VACCINES (1 of 2 - 2-dose childhood series) 1982 DTaP,Tdap,and Td Vaccines (1 - Tdap) 1992 PAP SMEAR 06/21/2007 06/21/2004 INFLUENZA VACCINE (#1) 2019 PNEUMOCOCCAL 0-64 YEARS COMBINED SERIES Completed 06/23/2017 documented as of this encounter Implants Implanted Type Area Steam Oven Operator Device Identifier Shelf Expiration Model / Serial Date / Lot Pacemaker documented as of this encounter Results Not on filedocumented in this encounter Insurance Payer Benefit Plan / Subscriber ID Effective Phone Address Type Group Dates LYNDSEY SOLORIO xxxxxxxxx 2011-Kobe [place]AL[place] [id number] MANAGED MEDICAID [place] documented as of this encounter
--- OUTSIDE RECORDS SUMMARY | 2019-11-10 19:58 | XMS REPORT | Summary of Care ---
:1980 Author Organization [facility] Address [address] [place] [address] Care Team Providers Name Role Phone Diya Mora MD Primary Care Provider Joshua Reyes Insurance Hmo Reason for Referral (Routine) Status Reason Specialty Diagnoses / Referred By Referred To Procedures Contact Contact New Request IM-CARDIOVASCULAR Diagnoses Syncope, unspecified syncope type Ventricular tachycardia Intercostal pain Essential hypertension Bird Dumas DISEASE Procedures Discharge Follow-Up: Specialty Service IM-CARDIOVASCULAR DISEASE; 4-6 Weeks MD Jeovanny [address] [place] [phone] Radiology Services (Emergency) Status Reason Specialty Diagnoses / Referred By Referred To Procedures Contact Contact New Request Diagnostic Diagnoses Other chest pain Veronica, K Radiology Procedures CHEST 2 VIEWS Bita, PAC [address] [facility] [address] [place] [address] Reason for Visit Reason Comments Chest Pain Auth/Cert Status Reason Specialty Diagnoses / Referred By Referred To Procedures Contact Contact Emergency Medicine [facility] Emergency Dept [address] [place] [address] [place] [address] Encounter Details Date Type Department Care Team Description 10/28/2019 - Hospital Encounter [facility] Chevy Yarbrough, PAC [address] [facility] [address] [place] [address] Syncope 10/30/2019 Intensive Care Unit Chuy Armstrong MD [address] [place] [address] CLC 4C Jeff Delgado MD [address] [place] [address] [address] [place] [address] Allergies Active Allergy Reactions Severity Noted Date [...] as of this encounter (statuses as of 10/30/2019) Medications Medication Sig Dispensed Refills Start Date [...] by 1 08/30/2018 Active tablet mouth daily. apixaban (ELIQUIS) Take 5 mg by 0 Active 5 mg mouth 2 (two) tabletIndications: times daily. Inappropriate sinus tachycardia, Sinus tachycardia, Sick sinus syndrome, Palpitations, Atypical chest pain, Essential hypertension, History of DVT (deep vein thrombosis), PAF (paroxysmal atrial fibrillation), Dizzy spells levETIRAcetam 500 Take 2 tablets 120 tablet [...] type, Ventricular tachycardia, Intercostal pain, Essential hypertension carvedilol (COREG) Take 25 mg by 0 Discontinued 25 mg mouth 2 (two) 0 tabletIndications: times daily Inappropriate sinus with meals. tachycardia, Sinus tachycardia, Sick sinus syndrome, Palpitations, Atypical chest pain, Essential hypertension, History of DVT (deep vein thrombosis), PAF (paroxysmal atrial fibrillation), Dizzy spells digoxin 250 mcg Take 1 tablet 90 tablet 1 03/13/2019 Discontinued tabletIndications: by mouth 0 Sinus tachycardia daily. documented as of this encounter (statuses as of 10/30/2019) Active Problems Problem Noted Date Syncope 10/29/2019 [...] Overview: Added automatically from request for surgery [id number] Abdominal pain, unspecified abdominal location 07/13/2018 Overview: Added automatically from request for surgery [id number] Nausea and vomiting, intractability of vomiting not specified, unspecified vomiting type Overview: Added automatically from request for surgery [id number] Chest pain 04/27/2018 Essential hypertension 04/27/2018 Pacemaker 04/27/2018 PAF (paroxysmal atrial fibrillation) 04/27/2018 History of cardiac pacemaker in situ 08/23/2017 Tachycardia, unspecified 06/22/2017 Elevated liver enzymes 07/23/2014 Pseudoseizure 04/15/2014 Left sided numbness 03/22/2014 Prediabetes 09/24/2013 Loss of weight 09/24/2013 Hypothyroidism 09/24/2013 Overview: ICD10 Diagnosis Term Cleat Blanker Utility Hypoglycemia 08/21/2013 Overview: ICD10 Diagnosis Term Cleat Blanker Utility documented as of this encounter (statuses as of 10/30/2019) Resolved Problems Problem Noted Date Resolved Date Metabolic syndrome X 07/23/2014 07/23/2014 documented as of this encounter (statuses as of 10/30/2019) Immunizations Name Administration Dates Next Due Pneumococcal Polysaccharide, PPSV23 (PNEUMOVAX) 06/23/2017 documented as of this encounter Social History Tobacco Use Types Packs/Day Years Used Date Former Smoker 0.3 2 Quit: 05/09/2003 Smokeless Tobacco: Never Used Quit: 08/20/2010 Tobacco Cessation: Counseling Given: No Comments: quit 16 years ago Alcohol Use [...] Sign Reading Time Taken Comments Blood Pressure 92/69 10/30/2019 3:00 PM [employer] MECH[employer]IC Pulse 77 10/30/2019 3:00 PM [employer]OR MECH[employer]IC Temperature 36.7 C (98 F) 10/30/2019 12:00 PM [employer]OR MECHANIC Respiratory Rate 15 10/30/2019 2:00 PM [employer]OR MECH[employer]IC Oxygen Saturation 97% 10/30/2019 3:00 PM [employer] MECH[employer]IC Inhaled Oxygen Concentration - - Weight 51.5 kg (113 lb 8 oz) 10/28/2019 6:24 PM [employer]OR MECH[employer] Height 149.9 cm (4' 11") 10/28/2019 6:27 PM [employer] MECH[employer]IC Body Mass Index 22.92 10/28/2019 6:24 PM [employer] MECH[employer]IC documented in this encounter Discharge Summaries Abdifatah Bustillos RN - 10/30/2019 3:35 PM [employer] Care Management Discharge Disposition Note (DCDN) 5-2-1 Interventions: Disease specific education;Intensive medication reconciliation/management;Teachback;Clear discharge plan;Follow-up appointments 5-2-1 Providers: Physician;Cell Stripper/Child Protective Investigator 5-2-1 Patient Capacity Improvements: Transportation arrangements Transportation: Private Vehicle Mental Status: Alert & Oriented to Person,Place & Time Living Arrangement: Home Other living arrangement: Address of living arrangement: [address] [place] [address]/ Name & Contact number: Abdifatah Bustillos RN Ph. [phone] The following information has been provided to the facility noted above: reason for the patient discharge or transfer; patients physical and psychosocial status; summary of care, treatment, servicesprovided to patient; and the patient progress toward goals. Jeff Combs MD - 10/30/2019 2:37 PM CST Red Team Service Date of Service: 10/30/2019 ADMIT DATE: 10/28/2019 DISCHARGE DATE: 10/30/2019 ATTENDING MD: Jeff Delgado MD REASON FOR ADMISSION Syncopal episode FINAL DIAGNOSIS: (the reason, after study, for admitting the patient to the hospital) Syncopal episode Ventricular tachycardia SECONDARY DIAGNOSIS: (any diagnosis that, on this admission, required clinical evaluation, therapeutic treatment, diagnostic procedures, extended hospital stay , or additional nursing care/monitoring) None Principal Problem: Syncope (10/29/2019) POA: Unknown Active Problems: Chest pain (04/27/2018) POA: Yes Essential hypertension (04/27/2018) POA: Yes PVT (paroxysmal ventricular tachycardia) (10/29/2019) POA: Unknown Digoxin toxicity (10/29/2019) POA: Unknown Atrial fibrillation (10/29/2019) POA: Yes Resolved Problems: * No resolved hospital problems. * Orders Placed This Encounter CONSULT CARDIOLOGY Consult [facility]oral [facility] CONSULT CARDIAC EP/HEART RHYTHM CENTER CONSULT CARDIAC EP/HEART RHYTHM CENTER CONSULT CARDIOVASCULAR SURGERY Current Facility-Administered Medications: metoprolol succinate XL (TOPROL XL) tablet 25 mg, 25 mg, Oral, QAM+PM, Gucci Joshi MD NaCl 0.9% (NS) IV infusion, , IV Infusion, CONTINUOUS, Gucci Joshi MD, Last Rate: 200 mL/hr at 10/30/19 0911 proCHLORperazine (COMPAZINE) injection 10 mg, 10 mg, Slow IV Push, Q6HPRN, Martha Gu MD, 10mg at 10/29/19 2234 acetaminophen (TYLENOL) tablet 650 mg, 650 mg, Oral, Q6HPRN, Lillie Bustillo FNP acetaminophen-codeine (TYLENOL #3) 300-30 mg tablet 2 tablet, 2 tablet, Oral, TIDPRN, Nathan Mckenna MD apixaban (ELIQUIS) tablet 5 mg, 5 mg, Oral, BID, Lillie Bustillo, TIP SCOURER, 5 mg at 10/30/19 0904 ARIPiprazole (ABILIFY) tablet 10 mg, 10 mg, Oral, QPM, Lillie Bustillo , TIP SCOURER, 10 mg at 10/29/191814 ARIPiprazole (ABILIFY) tablet 5 mg, 5 mg, Oral, QAM, Lillie Bustillo, TIP SCOURER, 5 mg at atorvastatin (LIPITOR) tablet 10 mg, 10 mg, Oral, QHS, Lillie Bustillo , TIP SCOURER, 10 mg at 10/29/19 194 busPIRone (BUSPAR) tablet 15 mg, 15 mg, Oral, BID, Lillie Bustillo TIP SCOURER , 15 mg at 10/30/19 0904 levETIRAcetam (KEPPRA) tablet 1,000 mg, 1,000 mg, Oral, BID, Lillie Bustillo TIP SCOURER, 1,000 mgat 10/30/19 0904 ondansetron (ZOFRAN (PF)) injection 4 mg, 4 mg, Slow IV Push, Q6HPRN, Lillie Bustlilo TIP SCOURER,4 mg at 10/29/19 1934 pantoprazole (PROTONIX) EC tablet 40 mg, 40 mg, Oral, DAILY, Lillie Bustillo FNP, 40 mg at10/30/19 0904 pregabalin (LYRICA) capsule 25 mg, 25 mg, Oral, QHS, Lillie Bustillo, TIP SCOURER, 25 mg at 10/29/19 1944 tiotropium (SPIRIVA) inhalation 18 mcg, 18 mcg, Inhalation, DAILY, Lillie Bustillo FNP, 18mcg at 10/30/19 0740 topiramate (TOPAMAX) tablet 100 mg, 100 mg, Oral, DAILY, Lillie Bustillo TIP SCOURER, 100 mg at 10/30/19 0903 venlafaxine XR (EFFEXOR XR) 24 hr capsule 150 mg, 150 mg, Oral, DAILY, Lillie Bustillo TIP SCOURER, 150 mg at 10/30/19 0904 SIGNIFICANT LAB/X-RAYS: Lab results: CBC BMP PT/INR WBC x10^3 (/uL) Date Value 03/24/2014 5.6 WBC (10*3/L) Date Value 10/29/2019 4.84 NA Date Value 10/29/2019 141 mmol/L 03/24/2014 136 MMOL/L SODIUM-Q (mmol/L) Date Value 07/23/2014 145 No results found for: PT RBC x10^6 (/uL) Date Value 03/24/2014 4.51 RBC (10*6/L) Date Value 10/29/2019 4.35 K Date Value 10/29/2019 4.2 mmol/L 03/24/2014 4.2 MMOL/L POTASSIUM-Q (mmol/L) Date Value 07/23/2014 4.9 PT INR (no units) Date Value 03/22/2014 1.0 INR (no units) Date Value 10/28/2019 1.0 PLT x10^3 (/uL) Date Value 03/24/2014 220 PLT (10*3/L) Date Value 10/29/2019 209 CALCIUM Date Value 10/29/2019 9.2 mg/dL 03/24/2014 9.3 MG/DL CALCIUM-Q (mg/dL) Date Value 07/23/2014 10.3 (H) HGB Date Value 10/29/2019 12.6 g/dL 03/24/2014 13.0 G/DL CL Date Value 10/29/2019 108 mmol/L 03/24/2014 98 MMOL/L CHLORIDE-Q (mmol/L) Date Value 07/23/2014 105 aPTT HCT (%) Date Value 10/29/2019 38.5 03/24/2014 38.8 BUN Date Value 10/29/2019 13 mg/dL 03/24/2014 20 MG/DL UREA NITROGEN (BUN)-Q (mg/dL) Date Value 07/23/2014 12 APTT (SEC) Date Value 03/22/2014 33 APTT Patient (Seconds) Date Value 10/28/2019 31 CREATININE Date Value 10/29/2019 0.71 mg/dL 03/24/2014 0.71 MG/DL CREATININE-Q (mg/dL) Date Value 07/23/2014 0.70 GLUCOSE Date Value 10/29/2019 107 mg/dL 03/24/2014 114 MG/DL (H) GLUCOSE-Q (mg/dL) Date Value 07/23/2014 93 CO2 TOTAL Date Value 10/29/2019 27 mmol/L 03/24/2014 30 MMOL/L CARBON DIOXIDE-Q (mmol/L) Date Value 07/23/2014 24 Other lab results: none X-ray results: Chest 2 Views Result Date: 10/28/2019 No acute cardiopulmonary process. Preliminary Report Dictated by Resident: Mary Lou Canales I,Peña Dixon MD., have reviewed this study and agree with the above report. HOSPITAL COURSE: Jenni Rivera is a 39 year old female with PMHx ofsick sinus syndrome, hypertension,admitted to the hospital with:syncopal episodes Ventricular Tachycardia (25 beat run) - possibly due to digoxin toxicity Syncopal episode Digoxin toxicity H/o sick sinus syndrome - s/p PPM in the past Hypertension Atrial fibrillation Seizure disorder Depression Normal systolic and diastolic function on recent echo Electrophysiology consultation (Marjorie notified) Cardiology consultation (Linda notified) Discontinue digoxin Follow digoxin level Continue Coreg for rate control Continue Eliquis for anticoagulation Keppra For seizure disorder 10/30 - the patient is stable at this time - no further arrhythmias or other issues - will transfer to the telemetry floor FUNCTIONAL STATUS: fully ambulatory DISCHARGE CONDITION: good COGNITIVE STATUS: cognitively intact DIET: cardiac ACTIVITY: as tolerated DISCHARGE MEDICATIONS: Current Discharge Medication List START taking these medications Details metoprolol succinate XL (TOPROL XL) 25 mg Take 25 mg by mouth every morning and evening. Qty: 60 tablet, Refills: 3 Start date: 10/30/2019 Associated Diagnoses: Syncope, unspecified syncope type; Ventricular tachycardia; Intercostal pain;Essential hypertension pantoprazole (PROTONIX) 40 mg Take 40 mg by mouth daily. Qty: 30 tablet, Refills: 0 Start date: 10/31/2019 Associated Diagnoses: Syncope, unspecified syncope type; Ventricular tachycardia; Intercostal pain;Essential hypertension CONTINUE these medications which have NOT CHANGED Details pregabalin (LYRICA) 25 mg Take 25 mg by mouth at bedtime. acetaminophen-codeine (TYLENOL #3) 1 tablet Take 1 tablet by mouth every 4 (four ) hours as needed for Pain (scale 1-3). Qty: 30 tablet, Refills: 0 Associated Diagnoses: Chest pain, unspecified type sucralfate (CARAFATE) 1,000 mg Take 1,000 mg by mouth before meals and at bedtime. Qty: 1200 mL, Refills: 2 levETIRAcetam (KEPPRA) 1,000 mg Take 1,000 mg by mouth 2 (two) times daily. Qty: 120 tablet, Refills: 6 Associated Diagnoses: Seizure cerebral apixaban (ELIQUIS) 5 mg Take 5 mg by mouth 2 (two) times daily. Associated Diagnoses: Inappropriate sinus tachycardia; Sinus tachycardia; Sick sinus syndrome; Palpitations; Atypical chest pain; Essential hypertension; History of DVT (deep vein thrombosis); PAF (paroxysmal atrial fibrillation); Dizzy spells atorvastatin (LIPITOR) 10 mg Take 10 mg by mouth daily. Refills: 1 blood sugar diagnostic (TRUETEST TEST STRIPS) strip Use as directed. R 73.03. Check once daily Qty: 100 Strip, Refills: 3 Associated Diagnoses: Prediabetes lancets (TRUEPLUS LANCETS) 33 gauge Misc Use as directed. R 73.03, Check once daily Qty: 100 Each, Refills: 3 Associated Diagnoses: Prediabetes Levothyroxine (TIROSINT) 150 mcg Take 150 mcg by mouth daily. ALPRAZolam (XANAX) 0.25 mg Take 0.25 mg by mouth at bedtime as needed. Associated Diagnoses: History of DVT (deep vein thrombosis); Sick sinus syndrome; Tachycardia; Painin pacemaker pocket fluticasone furoate-vilanterol (BREO ELLIPTA) 1 Puff Inhale 1 Puff daily. tiotropium (SPIRIVA) 18 mcg Inhale 18 mcg daily. !! ABILIFY 10 mg tablet TK 1 T PO QHS Refills: 1 !! ABILIFY 5 mg tablet TK 1 T PO D, in am Refills: 1 benztropine 1 mg tablet TK 1 T PO BID Refills: 1 busPIRone 15 mg tablet TK 1 T PO BID Refills: 1 topiramate 100 mg tablet TK 1 T PO HS Refills: 1 venlafaxine XR 150 mg 24 hr capsule TK 1 C PO HS Refills: 1 DALIRESP 500 mcg Tab daily. albuterol (ACCUNEB) 1 Ampule Use 1 Ampule as directed every 6 (six) hours as needed. ALBUTEROL SULFATE (PROAIR HFA INHALE) Inhale. loratadine (CLARITIN) 10 mg tablet as needed. !! - Potential duplicate medications found. Please discuss with provider. STOP taking these medications digoxin (LANOXIN) 0.25 mg Comments: Reason for Stopping: carvediloL (COREG) 25 mg Comments: Reason for Stopping: ANTIBIOTICS: Did this patient receive antibiotics during this admission, or is he/sh being discharged with antibiotics? No Was the patient given education on antibiotic indication, duration, and adverse effects? WOUND CARE: none CODE STATUS: full code OXYGEN (is patient being discharged on oxygen): no CORE MEASURES: None PATIENT EDUCATION PROVIDED: medications DISCHARGE: home self care FOLLOW-UP APPOINTMENT: Follow up with [employer] in 4-6 weeks PLAN FOR READMISSION: No Dr. Jeff Delgado [phone] documented in this encounter Discharge Instructions AttachmentsThe following attachments cannot be sent through Care Everywhere.Syncope, What is (Emirati)Syncope, Treating: Helping Your Heart ( Emirati)Syncope, Diagnosing (Emirati)Syncope, Causes of (Emirati)documented in this encounter Progress Notes Jeff Delgado MD - 10/30/2019 1:25 PM CST [facility] [place] Dr. Jeff Delgado MD 10/30/2019 1:25 PM Subjective: Chart reviewed. Patient seen in follow up for ventricular tachyarrythmia, and digoxin toxicity Objective: Vitals: 10/30/19 0900 10/30/19 1000 10/30/19 1100 10/30/19 1200 BP: 92/56 (!) 89/53 97/60 (!) 85/55 Pulse: 87 78 82 72 Resp: 13 13 26 13 Temp: 36.7 C (98 F) TempSrc: SpO2: 98% 97% 97% 97% Weight: Height: General: awake, alert, no distress HEENT: NC, AT, PERRLA, EOMI, MMM, anicteric sclera Neck: no JVD/lymphadenopathy CV: RRR, no murmurs, rubs, gallops Lungs: clear to auscultation bilaterally Abdomen: soft, NT, ND, (+)BS Skin: no rashes Extremities: no clubbing, cyanosis, edema Neuro: CN 2-12 intact, no focal deficits Psych: oriented x 3, normal affect Current Facility-Administered Medications: metoprolol succinate XL (TOPROL XL) tablet 25 mg, 25 mg, Oral, QAM+PM, Gucci Joshi MD NaCl 0.9% (NS) IV infusion, , IV Infusion, CONTINUOUS, Gucci Joshi MD, Last Rate: 200 mL/hr at 10/30/19 0911 proCHLORperazine (COMPAZINE) injection 10 mg, 10 mg, Slow IV Push, Q6HPRN, Martha Gu MD, 10mg at 10/29/19 2234 acetaminophen (TYLENOL) tablet 650 mg, 650 mg, Oral, Q6HPRN, Lillie Bustillo, TIP SCOURER acetaminophen-codeine (TYLENOL #3) 300-30 mg tablet 2 tablet, 2 tablet, Oral, TIDPLAUREL, Nathan Mckenna MD apixaban (ELIQUIS) tablet 5 mg, 5 mg, Oral, BID, Lillie Bustillo, TIP SCOURER, 5 mg at 10/30/19 09 ARIPiprazole (ABILIFY) tablet 10 mg, 10 mg, Oral, QPM, Lillie Bustillo , TIP SCOURER, 10 mg at 10/29/191814 ARIPiprazole (ABILIFY) tablet 5 mg, 5 mg, Oral, QAM, Lillie Bustillo, TIP SCOURER, 5 mg at atorvastatin (LIPITOR) tablet 10 mg, 10 mg, Oral, QHS, Lillie Bustillo , TIP SCOURER, 10 mg at 10/29/191943 busPIRone (BUSPAR) tablet 15 mg, 15 mg, Oral, BID, Lillie Bustillo FNP , 15 mg at 10/30/19903 levETIRAcetam (KEPPRA) tablet 1,000 mg, 1,000 mg, Oral, BID, Lillie Bustillo FNP, 1,000 mgat 10/30/19903 ondansetron (ZOFRAN (PF)) injection 4 mg, 4 mg, Slow IV Push, Q6HPRN, Lillie Bustillo, TIP SCOURER,4 mg at 10/29/19 193 pantoprazole (PROTONIX) EC tablet 40 mg, 40 mg, Oral, DAILY, Lillie Bustillo, TIP SCOURER, 40 mg at10/30/19903 pregabalin (LYRICA) capsule 25 mg, 25 mg, Oral, QHS, Lillie Bustillo, TIP SCOURER, 25 mg at 10/29/191943 tiotropium (SPIRIVA) inhalation 18 mcg, 18 mcg, Inhalation, DAILY, Lillie Bustillo TIP SCOURER, 18mcg at 10/30/19 0740 topiramate (TOPAMAX) tablet 100 mg, 100 mg, Oral, DAILY, Lillie Bustillo TIP SCOURER, 100 mg at 10/30/19 0903 venlafaxine XR (EFFEXOR XR) 24 hr capsule 150 mg, 150 mg, Oral, DAILY, Lillie Bustillo, TIP SCOURER, 150 mg at 10/30/19 0904 Labs Lab Results Component Value Date WBC 4.84 10/29/2019 HGB 12.6 10/29/2019 HCT 38.5 10/29/2019 PLT 209 10/29/2019 CHOL 202 (H) 06/15/2019 TRIG 127 06/15/2019 HDL 38 (L) 06/15/2019 ALT 16 10/28/2019 AST 32 10/28/2019 NA 141 10/29/2019 K 4.2 10/29/2019 CL 108 10/29/2019 BUN 13 10/29/2019 TSH 5.32 (H) 10/28/2019 HGBA1C 5.7 06/15/2019 A/P Jenni Rivera is a 39 year old female admitted with: Jenni Rivera is a 39 year old female with PMHx of sick sinus syndrome, hypertension, admitted to the hospital with:syncopal episodes Ventricular Tachycardia (25 beat run) - possibly due to digoxin toxicity Syncopal episode Digoxin toxicity H/o sick sinus syndrome - s/p PPM in the past Hypertension Atrial fibrillation Seizure disorder Depression Normal systolic and diastolic function on recent echo Electrophysiology consultation (Marjorie notified) Cardiology consultation (Linda notified) Discontinue digoxin Follow digoxin level Continue Coreg for rate control Continue Eliquis for anticoagulation Keppra For seizure disorder 10/30 - the patient is stable at this time - no further arrhythmias or other issues - will transfer to the telemetry floor Dr. Jeff Delgado [phone] signed by Jeff Delgado MD at 10/30/2019 1:27 PM Bird Reza MD - 10/30/2019 10:52 AM CST [facility] Cardiology Progress Note PCP: Diya Mora Date of Service: 10/30/2019 CHIEF COMPLAINT/reason for consult: chest pain, syncope HISTORY OF PRESENT ILLNESS This is a 39 yo female with PMH pAfib, HTN, s/p pacemaker. She was admitted for chest pain and syncope. For the past 2 days she has had multiple episodes of palpitations feeling heart beating fast in 130s. Two days ago she passed out. Some lower substernal chest pressure as well. In ADC she was found to have runs of pVT up to 25 beats. Digoxin level was > 8. Was Taking digoxin 250 mcg daily. Patient today has no CP, SOB, dizziness. Medications: I have reviewed the patient's medications; see Medication Reconciliation. PHYSICAL EXAM (-)=Negative,(+)=Positive Temp: [36.4 C (97.6 F)-37.3 C (99.1 F)] Heart Rate (monitor): [67-102] Pulse: [67-100] Resp: [10-36] BP: (81-127)/(40-74) MAP (mmHg): [60-100] General: Patient is alert and oriented x4 and in no acute distress. Chest - auscultation heart: The heart rate is normal with regular rhythm, and without murmurs, rubs,or gallops. Chest - auscultation lungs: clear to auscultation Abdomen: soft, nondistended Extremities: edema: none Database Tele: sinus, no events overnight TTE 10/29/2019 No hemodynamically significant valve diease. Left ventricular systolic function is normal. The left ventricular wall motion is normal. Ejection Fraction=55-60%. Right ventricular systolic pressure is normal. Estimated RA pressure is 0-5 mmHg Recent Labs 10/29/19 0433 10/29/19 1412 TROPNI <0.012 0.001 ASSESSMENT AND PLAN Syncope Chest pain Essential hypertension PVT (paroxysmal ventricular tachycardia) Digoxin toxicity Syncope--due to pVT from digoxin toxicity. Given digibind and no more symptoms or events on tele. Dig toxicity-- stop outpatient digoxin. Chest pain--non cardiac PAfib--Currently remains in sinus rhythm. On Eliquis and metoprolol. S/p pacemaker-normal function on interrogation HTN--well controlled Stable for DC home from my and EP standpoint after IV fluids given. F/u with [facility] general cardiologyand EP cardiology in 6 weeks. Bird Dumas MD [employer] Cardiology Kris Cristobal - 10/30/2019 10:45 AM CSTChaplain made follow up with the patient. The patient feeling good and she stated that going home today. Provided supportive presence and empathic listening. Offered blessings. Chaplain Kris LeonElectronically signed by Kris Barbosa at 2019 12:01 PM Kate Duke RN - 10/29/2019 12:41 PM CSTThis case is appropriate for inpatient admission. The change to inpatient admission is based on the level care this patient is receiving, medical necessity, risks associated and the expected duration of stay. The inpatient admission order has been entered per Dr. Armstrong. Precert status changed to Patient Class Change and inpatient registration notified via [employer]parrot to update/notify insurance. Kate LAGUNA, RN Utilization Review Nathan Rivera MD - 10/28/2019 9:57 PM CSTRN called for multiple episodes of Vtach, lasting for 30 seconds. Reviewed strips and ekg. Examined patient. Continues to have on/off chest pain. Exam - NAD, anciteric sclera, good air entry b/l, tachycardia, regular, nl s1s2 , + murmur, abd soft NT, no sgifniciant edema, AAOx3, skin warm and dry Reviewed ekg, labs, imaging Electrolytes normal. Will get trops and dig level Recurrent vtach S/p PPM IV metoprolol 5 mg once Give night coreg which was not given Check dig level Load with dig given previous low levels of dig IV dig 500 mcg now and then in the morning 200 mcg Cardiology consult pending in morning Asked RN to call [employer] pacemaker for interrogation in AM If continues to have vtach, will start amiodarone drip Continue med surg observation status for now Critical care time - 30 minutesElectronically signed by Nathan Mckenna MD at 10:04 PM CSTdocumented in this encounter Plan of Treatment Date Type Specialty Care Team Description 11/22/2019 Nurse Visit Cardiology Visit, Adc Nurse 11/26/2019 Office Visit Cardiology Gucci Joshi MD [address] [place], [place] [id number] [phone] 12/10/2019 Office Visit Cardiology Navi Hines MD [address] [place] [address] Name Type Priority Associated Diagnoses Order Schedule EKG-12 LEAD ROUTINE HEART STATION GIGI TOMORROW AM AT 0600 for 1 Occurrences starting 10/29/2019 until 10/29/2019 Health Maintenance Due Date Last Done Comments VARICELLA VACCINES (1 of 2 - 2-dose childhood series) 1982 DTaP,Tdap,and Td Vaccines (1 - Tdap) 1992 PAP SMEAR 06/21/2007 06/21/2004 INFLUENZA VACCINE (#1) 2019 PNEUMOCOCCAL 0-64 YEARS COMBINED SERIES Completed 06/23/2017 documented as of this encounter Implants Implanted Type Area Fashion Marketer Device Identifier Shelf Expiration Model / Serial Date / Lot Pacemaker documented as of this encounter Procedures Procedure Name Priority Date/Time Associated Comments Diagnosis DIGOXIN Routine 10/29/2019 2:14 Results for this PM [employer] procedure are in the results section. TROPONIN I Routine 10/29/2019 2:12 Results for this PM [employer] procedure are in the results section. POCT GLUCOSE Routine 10/29/2019 11:32 Results for this (AUTOMATED) AM [employer] procedure are in the results section. ECHO ROUTINE Routine 10/29/2019 9:08 Other chest pain W/DOPPLER COLOR AM [employer] EKG-12 LEAD Routine 10/29/2019 5:47 AM [employer] CBC WITH DIFFERENTIAL Routine 10/29/2019 4:33 Results for this AM [employer] procedure are in the results section. N-TERMINAL PRO-BNP Routine 10/29/2019 4:33 Results for this AM [employer] procedure are in the results section. CBC WITH DIFFERENTIAL Routine 10/29/2019 4:33 Results for this AM [employer] procedure are in the results section. BASIC METABOLIC PANEL Routine 10/29/2019 4:33 Results for this (NA, K, CL, CO2, AM [employer] procedure are in GLUCOSE, BUN, the results CREATININE, CA) section. TROPONIN I Routine 10/29/2019 4:33 Results for this AM [employer] procedure are in the results section. MAGNESIUM Routine 10/29/2019 4:33 Results for this AM [employer] procedure are in the results section. URIC ACID Routine 10/29/2019 4:33 Results for this AM [employer] procedure are in the results section. PHOSPHORUS Routine 10/29/2019 4:33 Results for this AM [employer] procedure are in the results section. DIGOXIN GIGI 10/28/2019 9:40 Results for this PM [employer] procedure are in the results section. THYROID STIMULATING Add-on 10/28/2019 9:40 Results for this HORMONE PM [employer] procedure are in the results section. TROPONIN I GIGI 10/28/2019 9:40 Results for this PM [employer] procedure are in the results section. EKG-12 LEAD Routine 10/28/2019 9:27 PM [employer] ADC / LCC - DRUG STAT 10/28/2019 5:43 Results for this SCREEN TRIAGE PM [employer] procedure are in the results section. URINALYSIS STAT 10/28/2019 5:43 Results for this PM [employer] procedure are in the results section. XR CHEST 2 VW STAT 10/28/2019 4:39 Other chest pain Results for this PM [employer] procedure are in the results section. CBC WITH DIFFERENTIAL STAT 10/28/2019 4:08 Other chest pain Results for this PM [employer] procedure are in the results section. ACTIVATED PARTIAL STAT 10/28/2019 4:08 Other chest pain Results for this THRMPLAS PANDA PM [employer] procedure are in the results section. PROTHROMBIN TIME / STAT 10/28/2019 4:08 Other chest pain Results for this INR PM [employer] procedure are in the results section. CBC WITH DIFFERENTIAL Routine 10/28/2019 4:08 Other chest pain Results for this PM [employer] procedure are in the results section. COMP. METABOLIC PANEL STAT 10/28/2019 4:08 Other chest pain Results for this (55087) PM [employer] procedure are in the results section. TROPONIN I STAT 10/28/2019 4:08 Other chest pain Results for this PM [employer] procedure are in the results section. MAGNESIUM STAT 10/28/2019 4:08 Other chest pain Results for this PM [employer] procedure are in the results section. LIPASE STAT 10/28/2019 4:08 Other chest pain Results for this PM [employer] procedure are in the results section. EKG-12 LEAD Routine 10/28/2019 3:42 PM [employer] EKG-12 LEAD STAT 10/28/2019 3:23 PM [employer] HOSPITAL ADMISSION Routine 10/28/2019 12:01 AM [employer] documented in this encounter Results DIGOXIN (10/29/2019 2:14 PM [employer]) Pathologist [facility] DIGOXIN >8.0 (H)Comment: 0.8 - 1.6 ng/mL [facility] LABORATORY Slight hemolysis SERVICES Specimen Blood - LINE, VENOUS Narrative Performed At Arrythmias: 1.5 - 2.0 ng/mL [facility]OR[facility] SERVICES Toxic Range: Greater than or equal to 2.4 ng/mL Performing Organization Address City/State/Zipcode Phone Number [facility] SERVICES CLIA: [id number], [address] [place], [place] [address] [facility] Troponin I (10/29/2019 2:12 PM [employer]OR [employer]CH[employer]) [facility] TROPONIN I 0.001 <=0.034 ng/mL [facility] Specimen Blood - LINE, VENOUS Narrative Performed At Equal or Less than 0.034 ng/ml---Normal [facility] Note: Cardiac troponin begins to rise 3-4 CAMPUS hours after the onset of ischemia. Repeat [...] patient's use of biotin. Performing Organization Address City/[facility] Phone Number [facility] CLIA: [id number], [address] [place] [address] [facility] [address] POCT GLUCOSE (AUTOMATED) (10/29/2019 11:32 AM [employer]OR [employer]CH[employer]IC) [facility] POCT GLU 103 70 - 110 mg/dL [facility] Specimen Blood Performing Organization Address City/State/Zipcode Phone Number [facility] CLIA: [id number], [address] [place] [address] CBC WITH DIFFERENTIAL (10/29/2019 4:33 AM [employer]OR [employer]CH[employer]) [facility] WBC 4.84 4.30 - 11.10 [facility] 10*3/L HOSPITAL LABORATORY RBC 4.35 3.93 - 5.25 [facility] 10*6/L HOSPITAL LAB[facility]ATORY HGB 12.6 11.6 - 15.0 g/dL [facility] HCT 38.5 35.7 - 45.2 % [facility] MCV 88.5 80.6 - 95.5 fL [facility] MCH 29.0 25.9 - 32.8 pg [facility] MCHC 32.7 31.6 - 35.1 g/dL [facility] RDW-SD 40.7 39.0 - 49.9 fL [facility] RDW-CV 12.4 12.0 - 15.5 % [facility] PLT 209 166 - 358 [facility] 10*3/L [facility] LABORATORY MPV 10.5 9.5 - 12.9 fL [facility] NRBC/100 WBC 0.0 0.0 - 10.0 /100 [facility] WBCs [facility] LABORATORY NRBC x10^3 <0.01 10*3/L [facility] GRAN MAT (NEUT) % 49.0 % [facility] IMM GRAN % 0.40 % [facility] LYMPH % 39.3 % [facility] MONO % 7.4 % [facility] EOS % 3.5 % [facility] BASO % 0.4 % [facility] GRAN MAT x10^3(ANC) 2.37 1.88 - 7.09 [facility] 10*3/uL HOSPITAL LABORATORY IMM GRAN x10^3 <0.03 0.00 - 0.06 [facility] 10*3/uL HOSPITAL LABORATORY LYMPH x10^3 1.90 1.32 - 3.29 [facility] 10*3/uL HOSPITAL LABORATORY MONO x10^3 0.36 0.33 - 0.92 [facility] 10*3/uL HOSPITAL LABORATORY EOS x10^3 0.17 0.03 - 0.39 [facility] 10*3/uL HOSPITAL LABORATORY BASO x10^3 <0.03 0.01 - 0.07 [facility] 10*3/uL HOSPITAL LABORATORY Specimen Blood - ARM, LEFT Performing Organization Address [facility] Phone Number [facility] CLIA: [id number], [address] [place] [address] URIC ACID (10/29/2019 4:33 AM [employer]) URIC ACID 2.1 (L) 2.9 - 6.0 mg/dL [facility] Specimen Blood - ARM, LEFT Performing Organization Address [facility] Phone Number [facility] CLIA: [id number], [address] [place] [address] N-TERMINAL PRO-BNP (10/29/2019 4:33 AM [employer]) NT-proBNP 69 <=125 pg/mL [facility] Specimen Blood - ARM, LEFT Narrative Performed At Biotin has been reported to cause a negative [facility] bias, interpret results relative to patient's use of biotin. Performing Organization Address [facility] Phone Number [facility] CLIA: [id number], [address] [place] [address] MAGNESIUM (10/29/2019 4:33 AM [employer]OR [employer]CH[employer]) MAGNESIUM 2.4 1.7 - 2.4 mg/dL [facility] Specimen Blood - ARM, LEFT Performing Organization Address [facility] Phone Number [facility] CLIA: [id number], [address] [place] [address] PHOSPHORUS (10/29/2019 4:33 AM [employer]OR [employer]CH[employer]) PHOSPHORUS 4.4 2.5 - 5.0 mg/dL [facility] Specimen Blood - ARM, LEFT Performing Organization Address [facility] Phone Number [facility] CLIA: [id number], [address] [place] [address] Troponin I (10/29/2019 4:33 AM [employer]CH[employer]) TROPONIN I <0.012 <=0.034 ng/mL [facility] Specimen Blood - ARM, LEFT Narrative Performed At Equal or Less than 0.034 ng/ml---Normal [facility] Note: Cardiac troponin begins to rise 3-4 [...] biotin. Performing Organization Address City/State/Zipcode Phone Number [facility] CLIA: [id number], [address] [place] [address] Basic Metabolic Panel (NA, K, CL, CO2, GLUCOSE, BUN, CREATININE, CA) (2019 4:33 AM [employer]) NA 141 135 - 145 mmol/L [facility] K 4.2 3.5 - 5.0 mmol/L [facility] CL 108 98 - 108 mmol/L [facility] CO2 TOTAL 27 23 - 31 mmol/L [facility] AGAP 6 2 - 16 [facility] BUN 13 7 - 23 mg/dL [facility] GLUCOSE 107 70 - 110 mg/dL [facility] CREATININE 0.71 0.50 - 1.04 [facility] mg/dL [facility] LABORATORY CALCIUM 9.2 8.6 - 10.6 mg/dL [facility] eGFR Calculation 92.1 mL/min/1.73m2 [facility] (Non-) [facility] LABORATORY eGFR Calculation 111.7 mL/min/1.73m2 [facility] () [facility]ORY Specimen Blood - ARM, LEFT Narrative Performed At Association of Glomerular Filtration Rate (GFR) [facility] and Staging of Kidney Disease* + + +- + | GFR (mL/min/1.73 m2) | With Kidney Damage | Without Kidney Damage + + +- + | >90 | Stage one | Normal + + +- + | 60-89 | Stage two | Decreased GFR + + +- + | 30-59 | Stage three | Stage three + + +- + | 15-29 | Stage four | Stage four + + +- + | <15 (or dialysis) | Stage five | Stage five + + +- + *Each stage assumes the associated GFR [...] abnormalities in imaging tests). Performing Organization Address [facility] Phone Number [facility] CLIA: [id number], [address] [place] [address] THYROID STIMULATING HORMONE (10/28/2019 9:40 PM [employer]) TSH 5.32 (H) 0.45 - 4.70 mIU/L [facility] Specimen Blood - ARM, LEFT Performing Organization Address [facility] Phone Number [facility] CLIA: [id number], [address] [place] [address] TROPONIN I (10/28/2019 9:40 PM [employer]) TROPONIN I <0.012 <=0.034 ng/mL [facility] Specimen Blood - ARM, LEFT Narrative Performed At Equal or Less than 0.034 ng/ml---Normal [facility] Note: Cardiac troponin begins to rise 3-4 [...] biotin. Performing Organization Address [facility] Phone Number [facility] CLIA: [id number], [address] [place] [address] DIGOXIN (10/28/2019 9:40 PM [employer]) DIGOXIN >8.0 (H) 0.8 - 1.6 ng/mL [facility] Specimen Blood - ARM, LEFT Narrative Performed At Arrythmias: 1.5 - 2.0 ng/mL [facility] Toxic Range: Greater than or equal to 2.4 ng/mL Performing Organization Address [facility] Phone Number [facility] CLIA: [id number], [address] [place] [address] URINALYSIS (10/28/2019 5:43 PM [employer]IC) Pathologist [facility] APPEARANCE Clear Clear [facility] COLOR Colorless (A) Yellow [facility] PH 8.0 4.8 - 8.0 [facility] SP GRAVITY 1.004 1.003 - 1.030 [facility] GLU U QUAL Normal Normal [facility] BLOOD 1+ (A) Negative [facility] KETONES Negative Negative [facility] PROTEIN Negative Negative [facility] UROBILIN Normal Normal [facility] BILIRUBIN Negative Negative [facility] NITRITE Negative Negative [facility] LEUK NOLBERTO Negative Negative [facility] RBC/HPF 2 0 - 3 HPF [facility] WBC/HPF 1 0 - 5 HPF [facility] BACTERIA Negative Negative [facility] SQ EPITH 1 HPF [facility] Specimen Urine - URINE, CLEAN CATCH Performing Organization Address [facility] Phone Number [facility] CLIA: [id number], [address] [place] [address] ADC / LCC - DRUG SCREEN TRIAGE (10/28/2019 5:43 PM [employer]CH[employer]) BENZO U Negative Negative [facility] VI U Negative Negative [facility] AMPHET Negative Negative [facility] THC Negative Negative [facility] METHADONE Negative Negative [facility] Meth U Negative Negative [facility] OPIATES Negative Negative [facility] Cocaine Metabolite Negative Negative [facility] PROPOXY Negative Negative [facility] Tric U Negative Negative [facility] PCP Negative Negative [facility] OXYCOD Negative Negative [facility] Specimen Urine - URINE, CLEAN CATCH Narrative Performed At Urine Drug Cutoff Ranges [facility] Benzodiazepines: 150 ng/mL Barbiturates: 200 ng/mL Amphetamine: 500 ng/mL Cannabinoids: 50 ng/mL Methadone: 200 ng/mL Methamphetamine: 500 ng/mL Opiates: 100 ng/mL or 2000 ng/mL Cocaine: 150 ng/mL Propoxyphene: 300 ng/mL Tricyclics: 300 ng/mL Oxycodone: 100 ng/mL PCP: 25 ng/mL The results are to be used only for medical (i.e., treatment) purposes. Unconfirmed screening results must not be used for non-medical purposes (e.g., employment testing, legal testing). Performing Organization Address City/State/Zipcode Phone Number [facility] CLIA: [id number], [address] [place] [address] CHEST 2 VIEWS (10/28/2019 4:39 PM [employer]OR [employer]CH[employer]) Specimen Impressions Performed At PACS/VR/DOSE No acute cardiopulmonary process. Preliminary Report Dictated by Resident: Peña Witt MD., have reviewed this study and agree with the above report. Narrative Performed At XR CHEST 2 VW PACS/VR/DOSE HISTORY: chest pain COMPARISON: X-ray dated 09/28/2019 FINDINGS: A right chest wall and tunneling device is seen with leads projecting over the right ventricle and right atrium. The lungs are well expanded and clear. The costophrenic angles are clear. The heart is normal in size. No pneumothorax is found. Procedure Note [facility], Radiant Results Inft User - 10/28/2019 5:04 PM [employer]CH[employer] XR CHEST 2 VW HISTORY: chest pain COMPARISON: X-ray dated 09/28/2019 FINDINGS: A right chest wall and tunneling device is seen with leads projecting over the right ventricle and right atrium. The lungs are well expanded and clear. The costophrenic angles are clear. The heart is normal in size. No pneumothorax is found. IMPRESSION No acute cardiopulmonary process. Preliminary Report Dictated by Resident: Peña Witt MD., have reviewed this study and agree with the above report. Performing Organization Address City/State/Zipcode Phone Number PACS/VR/DOSE MAGNESIUM (10/28/2019 4:08 PM [employer]OR MECH[employer]IC) MAGNESIUM 2.3 1.7 - 2.4 mg/dL [facility] Specimen Blood - ARM, LEFT Performing Organization Address City/State/Zipcode Phone Number [facility] CLIA: [id number], [address] [place] [address] CBC WITH DIFFERENTIAL (10/28/2019 4:08 PM [employer]OR [employer]CH[employer]IC) WBC 7.43 4.30 - 11.10 [facility] 10*3/L [facility] LABORATORY RBC 4.54 3.93 - 5.25 [facility] 10*6/L [facility]ORY HGB 12.8 11.6 - 15.0 g/dL [facility] HCT 39.9 35.7 - 45.2 % [facility] MCV 87.9 80.6 - 95.5 fL [facility] MCH 28.2 25.9 - 32.8 pg [facility] MCHC 32.1 31.6 - 35.1 g/dL [facility] RDW-SD 39.8 39.0 - 49.9 fL [facility] RDW-CV 12.3 12.0 - 15.5 % [facility] PLT 241 166 - 358 [facility] 10*3/L [facility] LAB[facility]ATORY MPV 10.3 9.5 - 12.9 fL [facility] NRBC/100 WBC 0.0 0.0 - 10.0 /100 [facility] WBCs [facility] LABORATORY NRBC x10^3 <0.01 10*3/L [facility] GRAN MAT (NEUT) % 64.4 % [facility] IMM GRAN % 0.40 % [facility] LYMPH % 26.5 % [facility] MONO % 7.1 % [facility] EOS % 1.1 % [facility] BASO % 0.5 % [facility] GRAN MAT x10^3(ANC) 4.78 1.88 - 7.09 [facility] 10*3/uL HOSPITAL LABORATORY IMM GRAN x10^3 0.03 0.00 - 0.06 [facility] 10*3/uL HOSPITAL LABORATORY LYMPH x10^3 1.97 1.32 - 3.29 [facility] 10*3/uL HOSPITAL LABORATORY MONO x10^3 0.53 0.33 - 0.92 [facility] 10*3/uL HOSPITAL LABORATORY EOS x10^3 0.08 0.03 - 0.39 [facility] 10*3/uL [facility] LABORATORY BASO x10^3 0.04 0.01 - 0.07 [facility] 10*3/uL [facility]ORY Specimen Blood - ARM, LEFT Performing Organization Address [facility] Phone Number [facility] CLIA: [id number], [address] [place] [address] LIPASE, SERUM (10/28/2019 4:08 PM AUT[employer]OR MECH[employer]IC) LIPASE 100 0 - 220 U/L [facility] Specimen Blood - ARM, LEFT Performing Organization Address City/[facility] Phone Number [facility] CLIA: [id number], [address] [place] [address] COMP. METABOLIC PANEL (25222) (10/28/2019 4:08 PM [employer]OR MECHANIC) NA 142 135 - 145 [facility] mmol/L [facility] LABORATORY K 4.0 3.5 - 5.0 [facility] mmol/L [facility] CL 106 98 - 108 mmol/L [facility] CO2 TOTAL 28 23 - 31 mmol/L [facility] AGAP 8 2 - 16 [facility] BUN 13 7 - 23 mg/dL [facility] GLUCOSE 94 70 - 110 mg/dL [facility] CREATININE 0.69 0.50 - 1.04 [facility] mg/dL [facility] LAB[facility] TOTAL BILI 0.2 0.1 - 1.1 mg/dL [facility] CALCIUM 10.0 8.6 - 10.6 [facility] mg/dL [facility] LAB[facility] T PROTEIN 7.9 6.3 - 8.2 g/dL [facility] ALBUMIN 4.9 3.5 - 5.0 g/dL [facility] ALK PHOS 123 (H) 34 - 122 U/L [facility] ALTv 16 5 - 35 U/L [facility] AST(SGOT) 32 13 - 40 U/L [facility] eGFR Calculation 95.2 mL/min/1.73m2 [facility] eGFR Calculation 115.4 mL/min/1.73m2 [facility] () [facility]ORY Specimen Blood - ARM, LEFT Narrative Performed At Association of Glomerular Filtration Rate (GFR) [facility] and Staging of Kidney Disease* + + +- + | GFR (mL/min/1.73 m2) | With Kidney Damage | Without Kidney Damage + + +- + | >90 | Stage one | Normal + + +- + | 60-89 | Stage two | Decreased GFR + + +- + | 30-59 | Stage three | Stage three + + +- + | 15-29 | Stage four | Stage four + + +- + | <15 (or dialysis) | Stage five | Stage five + + +- + *Each stage assumes the associated GFR [...] abnormalities in imaging tests). Performing Organization Address City/[facility] Phone Number [facility] CLIA: [id number], [address] [place] [address] PROTHROMBIN TIME / INR (10/28/2019 4:08 PM AUT[employer] MOTOR MECHANIC) Pathologist [facility] PROTIME PATIENT 12.7 12.0 - 14.7 [facility] LABORATORY INR 1.0Comment: Normal [facility] INR <1.1; Warfarin [facility] Therapeutic range LABORATORY 2.0 to 3.0 or 2.5 to 3.5, depending upon the indications. Specimen Blood - ARM, LEFT Performing Organization Address City/State/Zipcode Phone Number [facility] CLIA: [id number], [address] [place] [address] aPTT (10/28/2019 4:08 PM AUT[employer]OR MECHANIC) APTT Patient 31 23 - 38 Seconds [facility] Specimen Blood - ARM, LEFT Narrative Performed At The [facility] patient population mean normal value [facility] for aPTT is 30 seconds. Performing Organization Address [facility] Phone Number [facility] CLIA: [id number], [address] [place] [address] TROPONIN I (10/28/2019 4:08 PM AUT[employer]OR MECH[employer]IC) TROPONIN I <0.012 <=0.034 ng/mL [facility] Specimen Blood - ARM, LEFT Narrative Performed At Equal or Less than 0.034 ng/ml---Normal [facility] Note: Cardiac troponin begins to rise 3-4 [...] biotin. Performing Organization Address [facility] Phone Number [facility] CLIA: [id number], [address] [place] [address] documented in this encounter Visit Diagnoses Diagnosis Other chest pain Syncope, unspecified syncope type Ventricular tachycardia Paroxysmal ventricular tachycardia Intercostal pain Other chest pain Essential hypertension Unspecified essential hypertension Chest pain Chest pain, unspecified PVT (paroxysmal ventricular tachycardia) Paroxysmal ventricular tachycardia Digoxin toxicity Poisoning by cardiotonic glycosides and drugs of similar action Atrial fibrillation documented in this encounter Administered Medications Medication Order MAR Action Action Date Dose Rate Site acetaminophen-codeine (TYLENOL #3) 300-30 mg tablet 2 tablet 2 tablet, Oral, TIDPRN, Starting Mon10/28/19 at 2201, Until Discontinued, Routine, Pain (scale 4-6), Pain (scale 7-10) apixaban (ELIQUIS) tablet 5 mg Given 10/30/2019 9:04 AM AUTO MOTOR MECHANIC 5 mg 5 mg, Oral, BID, First dose on Mon10/28/19 at 2000, Until Discontinued, Routine Given 10/29/2019 7:34 PM AUTO MOTOR MECHANIC 5 mg Given 10/29/2019 7:55 AM AUTO MOTOR MECHANIC 5 mg ARIPiprazole (ABILIFY) tablet 10 mg Given 10/29/2019 6:15 PM AUTO MOTOR MECHANIC 10 mg 10 mg, Oral, QPM, First dose on Mon10/28/19 at 1800, Until Discontinued, Routine Given 10/28/2019 8:25 PM AUTO MOTOR MECHANIC 10 mg ARIPiprazole (ABILIFY) tablet 5 mg Given 10/30/2019 9:05 AM AUTO MOTOR MECHANIC 5 mg 5 mg, Oral, QAM, First dose on Mon10/29/19 at 0900, Until Discontinued, Routine Given 10/29/2019 7:55 AM AUTO MOTOR MECHANIC 5 mg atorvastatin (LIPITOR) tablet 10 mg Given 10/29/2019 7:44 PM AUTO MOTOR MECHANIC 10 mg 10 mg, Oral, QHS, First dose on Mon10/28/19 at 2100, Until Discontinued, Routine Given 10/28/2019 8:25 PM AUTO MOTOR MECHANIC 10 mg busPIRone (BUSPAR) tablet 15 mg Given 10/30/2019 9:04 AM AUTO MOTOR MECHANIC 15 mg 15 mg, Oral, BID, First dose on Mon10/28/19 at 2000, Until Discontinued, Routine Given 10/29/2019 7:38 PM AUTO MOTOR MECHANIC 15 mg Given 10/29/2019 7:55 AM AUTO MOTOR MECHANIC 15 mg levETIRAcetam (KEPPRA) tablet 1,000 mg Given 10/30/2019 9:04 AM AUTO MOTOR MECHANIC 1,000 mg 1,000 mg, Oral, BID, First dose on Mon10/28/19 at 2000, Until Discontinued, Routine Given 10/29/2019 10:34 PM AUTO MOTOR MECHANIC 1,000 mg Given 10/29/2019 7:55 AM AUTO MOTOR MECHANIC 1,000 mg metoprolol succinate XL (TOPROL XL) tablet 25 mg 25 mg, Oral, QAM+PM, First dose on Mon10/30/19 at 1700, Until Discontinued, Routine ondansetron (ZOFRAN (PF)) injection 4 mg Given 10/29/2019 7:34 PM AUTO MOTOR MECHANIC 4 mg 4 mg, Slow IV Push, Q6HPRN, Starting Mon10/28/19 at 1747, Until Discontinued, Routine, Nausea and Vomiting (N/V) Given 10/29/2019 10:13 AM AUTO MOTOR MECHANIC 4 mg pantoprazole (PROTONIX) EC tablet 40 mg Given 10/30/2019 9:04 AM AUTO MOTOR MECHANIC 40 mg 40 mg, Oral, DAILY, First dose on Mon10/28/19 at 1915, Until Discontinued, Routine Given 10/29/2019 7:55 AM AUTO MOTOR MECHANIC 40 mg Given 10/28/2019 8:26 PM AUTO MOTOR MECHANIC 40 mg pregabalin (LYRICA) capsule 25 mg Given 10/29/2019 7:44 PM AUTO MOTOR MECHANIC 25 mg 25 mg, Oral, QHS, First dose on Mon10/28/19 at 2100, Until Discontinued, Routine, english faculty member approving Restricted medication: MEGADC proCHLORperazine (COMPAZINE) injection 10 mg Given 10/29/2019 10:34 PM AUTO MOTOR MECHANIC 10 mg 10 mg, Slow IV Push, Q6HPRN, Starting Mon10/29/19 at 2152, Until Discontinued, Routine, Nausea and Vomiting (N/V) tiotropium (SPIRIVA) inhalation 18 mcg Given 10/30/2019 7:40 AM AUTO MOTOR MECHANIC 18 mcg 18 mcg, Inhalation, DAILY, First dose on Mon10/29/19 at 0900, Until Discontinued, Routine, english faculty member approving Restricted medication: MEGADC Given 10/29/2019 9:00 AM AUTO MOTOR MECHANIC 18 mcg topiramate (TOPAMAX) tablet 100 mg Given 10/30/2019 9:03 AM AUTO MOTOR MECHANIC 100 mg 100 mg, Oral, DAILY, First dose on Mon10/29/19 at 0900, Until Discontinued, Routine, english faculty member approving Restricted medication: MEGADC Given 10/29/2019 8:02 AM AUTO MOTOR MECHANIC 100 mg venlafaxine XR (EFFEXOR XR) 24 hr capsule Given 10/30/2019 9:04 AM AUTO MOTOR MECHANIC 150 mg 150 mg 150 mg, Oral, DAILY, First dose on Mon10/29/19 at 0900, Until Discontinued, Routine Given 10/29/2019 8:02 AM AUTO MOTOR MECHANIC 150 mg Medication Order MAR Action Action Date Dose Rate Site carvediloL (COREG) tablet 25 mg Given 10/29/2019 6:15 PM AUTO MOTOR MECHANIC 25 mg 25 mg, Oral, BID MEALS, First dose on Mon10/28/19 at 2115, Until Discontinued, Routine Given 10/29/2019 7:55 AM AUTO MOTOR MECHANIC 25 mg Given 10/28/2019 9:20 PM AUTO MOTOR MECHANIC 25 mg digoxin (LANOXIN) injection 250 mcg Given 10/29/2019 7:50 AM AUTO MOTOR MECHANIC 250 mcg 250 mcg, Intravenous, ONCE, 1 dose, 10/29/19 at 0500, Routine digoxin (LANOXIN) injection 500 mcg Given 10/28/2019 10:15 PM AUTO MOTOR MECHANIC 500 mcg 500 mcg (0.5 mg), Intravenous, ONCE, 1 dose, 10/28/19 at 2215, Routine digoxin immune edda (DIGIFAB) 160 mg in NaCl Given 10/29/2019 10:49 AM AUTO MOTOR MECHANIC 160 mg 0.9% (NS) 50 mL 160 mg, Intravenous, ONCE, 1 dose, 10/29/19 at 1030, Routine ketorolac (TORADOL) injection 30 mg Given 10/28/2019 4:54 PM AUTO MOTOR MECHANIC 30 mg 30 mg, Slow IV Push, ONCE, 1 dose, Mon10/28/19 at 1645, GIGI, english faculty member approving Restricted medication: Chevy YARBROUGH metoprolol (LOPRESSOR) injection 5 mg Given 10/28/2019 9:20 PM AUTO MOTOR MECHANIC 5 mg 5 mg, Slow IV Push, ONCE, 1 dose, Mon10/28/19 at 2215, GIGI NaCl 0.9% (NS) bolus infusion New Bag 10/28/2019 5:20 PM AUTO MOTOR MECHANIC 1,000 mL 999 mL/hr 1,000 mL at 999 mL/hr, 1,000 mL, IV Infusion, ONCE, 1 dose, Mon10/28/19 at 1815, STAT NaCl 0.9% (NS) IV infusion New Bag 10/30/2019 9:11 AM AUTO MOTOR MECHANIC 200 mL/hr IV Infusion, at 200 mL/hr, CONTINUOUS, Starting Mon10/30/19 at 1015, Until Mon10/30/19 at 1514, Routine documented in this encounter Insurance Payer Benefit Plan / Subscriber ID Effective Phone Address Type Group Dates LYNDSEY SOLORIO xxxxxxxxx 2011-Kobe [place] [id number] MANAGED MEDICAID [place], [place] (Work) documented as of this encounter
--- OUTSIDE RECORDS SUMMARY | 2019-11-10 19:58 | XMS REPORT | Summary of Care ---
:1980 Author Organization [facility] Address [address] [place] [id number] Care Team Providers Name Role Phone Diya Mora MD Primary Care Provider Joshua Reyes Insurance Hmo Reason for Visit Reason Comments Transition Of Care Encounter Details Date Type Department Care Team Description 10/31/2019 Transition of Care [facility] Catie Pool, [facility] RN [address] [address] Allergies Active Allergy Reactions Severity Noted Date [...] as of this encounter (statuses as of 10/31/2019) Medications Medication Sig Dispensed Refills Start Date [...] 08/30/2018 Active tablet mouth daily. apixaban (ELIQUIS) 5 Take 5 mg by 0 Active mg tabletIndications: mouth 2 (two) Inappropriate sinus times daily. tachycardia, Sinus tachycardia, Sick sinus syndrome, Palpitations, Atypical chest pain, Essential hypertension, History of DVT (deep vein thrombosis), PAF (paroxysmal atrial fibrillation), Dizzy spells levETIRAcetam 500 mg Take 2 tablets by [...] 0 Active mg capsule mouth at bedtime. metoprolol succinate Take 1 tablet by 60 tablet 3 10/30/2019 Active XL 25 mg 24 hr mouth every tabletIndications: morning and Syncope, unspecified evening. syncope type, Ventricular tachycardia, Intercostal pain, Essential hypertension pantoprazole 40 mg EC Take 1 tablet by 30 tablet 0 10/31/2019 Active tabletIndications: mouth daily. Syncope, unspecified syncope type, Ventricular tachycardia, Intercostal pain, Essential hypertension documented as of this encounter (statuses as of 10/31/2019) Active Problems Problem Noted Date Syncope 10/29/2019 [...] Overview: Added automatically from request for surgery [id number] Abdominal pain, unspecified abdominal location 07/13/2018 Overview: Added automatically from request for surgery [id number] Nausea and vomiting, intractability of vomiting not specified, unspecified vomiting type Overview: Added automatically from request for surgery [id number] Chest pain 04/27/2018 Essential hypertension 04/27/2018 Pacemaker 04/27/2018 PAF (paroxysmal atrial fibrillation) 04/27/2018 History of cardiac pacemaker in situ 08/23/2017 Tachycardia, unspecified 06/22/2017 Elevated liver enzymes 07/23/2014 Pseudoseizure 04/15/2014 Left sided numbness 03/22/2014 Prediabetes 09/24/2013 Loss of weight 09/24/2013 Hypothyroidism 09/24/2013 Overview: ICD10 Diagnosis 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 Hypoglycemia 08/21/2013 Overview: ICD10 Diagnosis 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 documented as of this encounter (statuses as of 10/31/2019) Resolved Problems Problem Noted Date Resolved Date Metabolic syndrome X 07/23/2014 07/23/2014 documented as of this encounter (statuses as of 10/31/2019) Immunizations Name Administration Dates Next Due Pneumococcal [...] Cardiology Gucci Joshi MD [address] [place] [address] 12/10/2019 Office Visit Cardiology Navi Hines MD [address] [place] [address] [place] [phone] Health Maintenance Due Date Last Done Comments VARICELLA VACCINES (1 of 2 - 2-dose childhood series) 1982 DTaP,Tdap,and Td Vaccines (1 - Tdap) 1992 PAP SMEAR 06/21/2007 06/21/2004 INFLUENZA VACCINE (#1) 2019 PNEUMOCOCCAL 0-64 YEARS COMBINED SERIES Completed 06/23/2017 documented as of this encounter Implants Implanted Type Area Nail Kegger Device Identifier Shelf Expiration Model / Serial Date / Lot Pacemaker documented as of this encounter Results Not on filedocumented in this encounter Insurance Payer Benefit Plan / Subscriber ID Effective Phone Address Type Group Dates LYNDSEY SOLORIO xxxxxxxxx 2011-Kobe [place] [id number] [place] MED[place] documented as of this encounter
--- OUTSIDE RECORDS SUMMARY | 2019-11-10 19:59 | XMS REPORT | Summary of Care ---
:1980 Author Organization [facility] Address [address] [place] [address] Care Team Providers Name Role Phone Diya Mora MD Primary Care Provider Joshua Reyes Insurance Hmo Reason for Visit Reason Comments Talk To Nurse Encounter Details Date Type Department Care Team Description 10/28/2019 Telephone [facility] CardiologyMadelyn, Talk To Nurse [facility] MD Gucci [address] [place] [phone] [place] [address] Allergies Active Allergy Reactions Severity [...] Active 25 mg capsule mouth at bedtime. carvedilol (COREG) Take 25 mg by 0 [...] Overview: Added automatically from request for surgery [id number] Abdominal pain, unspecified abdominal location 07/13/2018 Overview: Added automatically from request for surgery [id number] Nausea and vomiting, intractability of vomiting not specified, unspecified vomiting type Overview: Added automatically from request for surgery [id number] Chest pain 04/27/2018 Essential hypertension 04/27/2018 Pacemaker 04/27/2018 PAF (paroxysmal atrial fibrillation) 04/27/2018 History of cardiac pacemaker in situ 08/23/2017 Tachycardia, unspecified 06/22/2017 Elevated liver enzymes 07/23/2014 Pseudoseizure 04/15/2014 Left sided numbness 03/22/2014 Prediabetes 09/24/2013 Loss of weight 09/24/2013 Hypothyroidism 09/24/2013 Overview: ICD10 Diagnosis 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 Hypoglycemia 08/21/2013 Overview: ICD10 Diagnosis 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 documented as of this encounter [...] Cardiology Gucci Joshi MD [address] [place] [address] 12/10/2019 Office Visit Cardiology Navi Hines MD [address] [place] [address] [place] [phone] Health Maintenance Due Date Last Done Comments VARICELLA VACCINES (1 of 2 - 2-dose childhood series) 1982 DTaP,Tdap,and Td Vaccines (1 - Tdap) 1992 PAP SMEAR 06/21/2007 06/21/2004 INFLUENZA VACCINE (#1) 2019 PNEUMOCOCCAL 0-64 YEARS COMBINED SERIES Completed 06/23/2017 documented as of this encounter Implants Implanted Type Area Respiratory Care Instructor Device Identifier Shelf Expiration Model / Serial Date / Lot Pacemaker documented as of this encounter Results Not on filedocumented in this encounter Insurance Payer Benefit Plan / Subscriber ID Effective Phone Address Type Group Dates LYNDSEY SOLORIO xxxxxxxxx 2011-Kobe PERALTA Medicaid HEALTHCARE [place] [facility] [place] [id number] MANAGED MEDICAID [place] documented as of this encounter
[2019-11-10] MEDS ORDERED: HYDROCODONE/APAP 5/325 MG TAB ONE (20:11)
--- NOTE | 2019-11-10 20:17 | RAD REPORT ---
EXAM DESCRIPTION: RAD - Elbow Left 3 View - 11/10/2019 8:11 pm CLINICAL HISTORY: Left elbow pain status post trauma FINDINGS: No fracture or dislocation is seen.
--- NOTE | 2019-11-10 20:37 | ER ---
Nurse's Notes [facility] [place], [place] Name: Jenni Draper Age: 39 yrs Sex: Female : 1980 Arrival Date: 11/10/2019 Time: 19:42 Bed 24 Private MD: Diagnosis: Other fall on same level;Contusion of left forearm;Pain in left elbow Presentation: 11/10 19:44 Presenting complaint: Patient states: "I fell on my left arm and I can't straighten it aj1 out and I fell at 4:00. I've taken Tylenol and Motrin and it doesn't do anything for the pain" States that she tripped while walking. Transition of care: patient was not received from another setting of care. Onset of symptoms was November 10, 2019. Risk Assessment: Do you want to hurt yourself or someone else? Patient reports no desire to harm self or others. Initial Sepsis Screen: Does the patient meet any 2 criteria? HR > 90 bpm. No. Patient's initial sepsis screen is negative. Does the patient have a suspected source of infection? No. Patient's initial sepsis screen is negative. Care prior to arrival: None. 19:44 Method Of Arrival: Ambulatory aj1 19:44 Acuity: LYUBOV 4 aj1 Triage Assessment: 19:52 General: Appears in no apparent distress. comfortable, Behavior is calm, cooperative, aj1 appropriate for age. Pain: Complains of pain in left arm. Neuro: Level of Consciousness is awake, alert, obeys commands. Cardiovascular: Patient's skin is warm and dry. Respiratory: Airway is patent Respiratory effort is even, unlabored, Respiratory pattern is regular, symmetrical. 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 LMP N/A - Hysterectomy aj1 Historical: - Allergies: 19:52 Adhesives; aj1 19:52 Aspirin; aj1 19:52 Bactrim; aj1 19:52 Benadryl; aj1 19:52 Cipro IV; aj1 19:52 Clindamycin; aj1 19:52 coconut oil; aj1 19:52 Detrol; aj1 19:52 Diltiazem; aj1 19:52 FISH PRODUCT DERIVATIVES; aj1 19:52 Iodine; aj1 19:52 GABAPENTIN; aj1 19:52 Latex, Natural Rubber; aj1 19:52 Morphine; aj1 19:52 PENICILLINS; aj1 19:52 Seroquel; aj1 19:52 Sulfa (Sulfonamide Antibiotics); aj1 19:52 tramadol; aj1 19:52 Suprax; aj1 - Home Meds: 19:52 Abilify 10 mg Oral tab 1 tab once daily [Active]; albuterol sulfate 1.25 mg/3 mL Inhl aj1 nebu 3 mL 3 times per day [Active]; alprazolam 0.25 mg Oral tab 1 tab nightly [Active]; apixaban 5 mg BID Oral [Active]; atorvastatin 10 mg Oral tab 1 tab once daily [Active]; benztropine 1 mg Oral tab 1 tab 2 times per day [Active]; Breo Ellipta 100-25 mcg/dose inhalation dsdv 1 puff once daily [Active]; buspirone 15 mg Oral tab 1 tab 2 times per day [Active]; Coreg 25 mg Oral tab 1 tab 2 times per day [Active]; Daliresp 500 mcg Oral tab 1 tab once daily [Active]; Effexor XR 150 mg Oral cp24 1 cap once daily [Active]; Eliquis 5 mg Oral tab once a day [Active]; esomeprazole magnesium 40 mg Oral cpDR 1 cap once daily [Active]; Keppra 1,000 mg Oral tab 1 tab every 12 hours [Active]; ketorolac 10 mg Oral tab 1 tab every 6 hours [Active]; levothyroxine 150 mcg tab 1 tab once daily [Active]; loratadine 10 mg Oral tab 1 tab once daily [Active]; methocarbamol 500 mg Oral tab 1 tabs 4 times per day [Active]; pregabalin 25 mg Oral 1 cap daily [Active]; ProAir HFA 90 mcg/actuation inhalation HFAA 2 puffs every 6 hours [Active]; Spiriva with HandiHaler 18 mcg inhalation CpDv 1 cap once daily [Active]; Topamax 100 mg Oral tab 2 tabs 2 times per day [Active]; venlafaxine 150 mg Oral cp24 1 cap once daily [Active]; - PMHx: 19:52 Anemia; Anxiety; Asthma; Atrial Fib; Back pain; Bronchitis; Depression; dvt to left aj1 leg; High Cholesterol; Hypertension; Hypothyroidism; HYPOGLYCEMIA; internal heart monitor; Kidney stones; Migraines; mitral valve prolapse; Myocardial infarction; neuropathy; Pacemaker; Seizures; sick sinus syndrome; TIA; Upper Resp Infection; - Immunization history:: Flu vaccine is not up to date. - Coronavirus screen:: The patient has NOT traveled to [place] in the past 14 days. - Social history:: Smoking status: Patient/guardian denies using tobacco. - Ebola Screening: : Patient denies travel to an Ebola-affected area in the 21 days before illness onset. Screenin:14 Abuse screen: Denies threats or abuse. Denies injuries from another. Nutritional mg2 screening: No deficits noted. Tuberculosis screening: No symptoms or risk factors identified. Fall Risk Fall in past 12 months (25 points). Assessment: 20:12 General: Appears in no apparent distress. comfortable, Behavior is calm, cooperative. mg2 Pain: Complains of pain in left arm Pain does not radiate. Pain currently is 8 out of 10 on a pain scale. Quality of pain is described as aching, Pain began 4 hours ago. Is intermittent. Neuro: Level of Consciousness is awake, alert, obeys commands, Oriented to person, place, time, situation. Cardiovascular: Capillary refill < 3 seconds Patient's skin is warm and dry. Respiratory: Airway is patent Respiratory effort is even, unlabored, Respiratory pattern is regular, symmetrical. GI: No signs and/or symptoms were reported involving the gastrointestinal system. : No signs and/or symptoms were reported regarding the genitourinary system. EENT: No signs and/or symptoms were reported regarding the EENT system. Derm: Bruising that is dark purple, on left arm. Musculoskeletal: Circulation, motion, and sensation intact. Capillary refill < 3 seconds, Swelling present in left arm. Vital Signs: 19:52 BP 104 / 77; Pulse 102; Resp 20; Temp 97.6; Pulse Ox 98% on R/A; Weight 50.8 kg (R); aj1 Height 4 ft. 11 in. (149.86 cm) (R); Pain 8/10; 20:54 BP 110 / 70; Pulse 95; Resp 18; Temp 98; Pulse Ox 100% on R/A; mg2 19:52 Body Mass Index 22.62 (50.80 kg, 149.86 cm) aj1 ED Course: 19:42 Patient arrived in ED. es 19:46 Triage completed. aj1 19:47 Neer[facility] Galvan [facility]-C [facility]. snw 19:47 Germaine Tapia MD is Attending Physician. snw 19:52 Arm band placed on Patient placed in an exam room. aj1 20:04 Martin Castro, RN is Primary Nurse. mg2 20:15 Patient has correct armband on for positive identification. Door closed. Warm blanket mg2 given. Ice pack to injury. 20:15 No provider procedures requiring assistance completed. Patient did not have IV access mg2 during this emergency room visit. 20:54 Sling applied to left arm. mg2 Administered Medications: 20:09 Drug: Hibiclens 4 % 1 application Route: Topical; Site: affected area; mg2 20:10 Drug: [place] 5 mg-325 mg 1 tabs Route: PO; mg2 20:39 Follow up: Response: No adverse reaction mg2 Outcome: 20:37 Discharge ordered by MD. snw 20:55 Discharged to home ambulatory, with family. mg2 20:55 Condition: stable 20:55 Discharge instructions given to patient, family, Instructed on discharge instructions, follow up and referral plans. medication usage, Demonstrated understanding of instructions, follow-up care, medications, Prescriptions given X 1. 20:55 Patient left the ED. mg2 Signatures: Tania Mena RN RN aj1 Neeru Galvan FNP-C [employer] OPERATOR [employer] Leelee Mayorga Michele, RN RN mg2
--- NOTE | 2019-11-10 20:38 | EDPHYS ---
Physician Documentation [facility] Name: Jenni Draper Age: 39 yrs Sex: Female : 1980 Arrival Date: 11/10/2019 Time: 19:42 Bed 24 Private MD: ED Physician Germaine Tapia HPI: 11/10 21:00 This 39 yrs old Female presents to ER via Ambulatory with complaints of Fall snw Injury. 21:00 Details of fall: The patient fell from an upright position, slipped in mud and struck snw pallet with left elbow. Onset: The symptoms/episode began/occurred suddenly, today, and became persistent. Associated injuries: The patient sustained left elbow, decreased range of motion, painful injury. Severity of symptoms: At their worst the symptoms were moderate. It is unknown whether or not the patient has had similar symptoms in the past. It is unknown whether or not the patient has recently seen a physician. no other injury, no LOC. 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 LMP N/A - Hysterectomy aj1 Historical: - Allergies: 19:52 Adhesives; aj1 19:52 Aspirin; aj1 19:52 Bactrim; aj1 19:52 Benadryl; aj1 19:52 Cipro IV; aj1 19:52 Clindamycin; aj1 19:52 coconut oil; aj1 19:52 Detrol; aj1 19:52 Diltiazem; aj1 19:52 FISH PRODUCT DERIVATIVES; aj1 19:52 Iodine; aj1 19:52 GABAPENTIN; aj1 19:52 Latex, Natural Rubber; aj1 19:52 Morphine; aj1 19:52 PENICILLINS; aj1 19:52 Seroquel; aj1 19:52 Sulfa (Sulfonamide Antibiotics); aj1 19:52 tramadol; aj1 19:52 Suprax; aj1 - Home Meds: 19:52 Abilify 10 mg Oral tab 1 tab once daily [Active]; albuterol sulfate 1.25 mg/3 mL Inhl aj1 nebu 3 mL 3 times per day [Active]; alprazolam 0.25 mg Oral tab 1 tab nightly [Active]; apixaban 5 mg BID Oral [Active]; atorvastatin 10 mg Oral tab 1 tab once daily [Active]; benztropine 1 mg Oral tab 1 tab 2 times per day [Active]; Breo Ellipta 100-25 mcg/dose inhalation dsdv 1 puff once daily [Active]; buspirone 15 mg Oral tab 1 tab 2 times per day [Active]; Coreg 25 mg Oral tab 1 tab 2 times per day [Active]; Daliresp 500 mcg Oral tab 1 tab once daily [Active]; Effexor XR 150 mg Oral cp24 1 cap once daily [Active]; Eliquis 5 mg Oral tab once a day [Active]; esomeprazole magnesium 40 mg Oral cpDR 1 cap once daily [Active]; Keppra 1,000 mg Oral tab 1 tab every 12 hours [Active]; ketorolac 10 mg Oral tab 1 tab every 6 hours [Active]; levothyroxine 150 mcg tab 1 tab once daily [Active]; loratadine 10 mg Oral tab 1 tab once daily [Active]; methocarbamol 500 mg Oral tab 1 tabs 4 times per day [Active]; pregabalin 25 mg Oral 1 cap daily [Active]; ProAir HFA 90 mcg/actuation inhalation HFAA 2 puffs every 6 hours [Active]; Spiriva with HandiHaler 18 mcg inhalation CpDv 1 cap once daily [Active]; Topamax 100 mg Oral tab 2 tabs 2 times per day [Active]; venlafaxine 150 mg Oral cp24 1 cap once daily [Active]; - PMHx: 19:52 Anemia; Anxiety; Asthma; Atrial Fib; Back pain; Bronchitis; Depression; dvt to left aj1 leg; High Cholesterol; Hypertension; Hypothyroidism; HYPOGLYCEMIA; internal heart monitor; Kidney stones; Migraines; mitral valve prolapse; Myocardial infarction; neuropathy; Pacemaker; Seizures; sick sinus syndrome; TIA; Upper Resp Infection; - Immunization history:: Flu vaccine is not up to date. - Coronavirus screen:: The patient has NOT traveled to [place] in the past 14 days. - Social history:: Smoking status: Patient/guardian denies using tobacco. - Ebola Screening: : Patient denies travel to an Ebola-affected area in the 21 days before illness onset. ROS: 20:59 Constitutional: Negative for fever, chills, and weight loss, Eyes: Negative for injury, snw pain, redness, and discharge, ENT: Negative for injury, pain, and discharge, Neck: Negative for injury, pain, and swelling, Cardiovascular: Negative for chest pain, palpitations, and edema, Respiratory: Negative for shortness of breath, cough, wheezing, and pleuritic chest pain, Abdomen/GI: Negative for abdominal pain, nausea, vomiting, diarrhea, and constipation, Back: Negative for injury and pain, : Negative for injury, bleeding, discharge, and swelling, Neuro: Negative for headache, weakness, numbness, tingling, and seizure, Psych: Negative for depression, anxiety, suicide ideation, homicidal ideation, and hallucinations. 20:59 MS/extremity: Positive for injury or acute deformity, decreased range of motion, pain, of the dorsal aspect of left forearm and left elbow. Exam: 20:57 Constitutional: This is a well developed, well nourished patient who is awake, alert, snw and in no acute distress. Head/Face: Normocephalic, atraumatic. Eyes: Pupils equal round and reactive to light, extra-ocular motions intact. Lids and lashes normal. Conjunctiva and sclera are non-icteric and not injected. Cornea within normal limits. Periorbital areas with no swelling, redness, or edema. ENT: Nares patent. No nasal discharge, no septal abnormalities noted. Tympanic membranes are normal and external auditory canals are clear. Oropharynx with no redness, swelling, or masses, exudates, or evidence of obstruction, uvula midline. Mucous membranes moist. Neck: Trachea midline, no thyromegaly or masses palpated, and no cervical lymphadenopathy. Supple, full range of motion without nuchal rigidity, or vertebral point tenderness. No Meningismus. Chest/axilla: Normal chest wall appearance and motion. Nontender with no deformity. No lesions are appreciated. Cardiovascular: Regular rate and rhythm with a normal S1 and S2. No gallops, murmurs, or rubs. Normal PMI, no JVD. No pulse deficits. Respiratory: Lungs have equal breath sounds bilaterally, clear to auscultation and percussion. No rales, rhonchi or wheezes noted. No increased work of breathing, no retractions or nasal flaring. Abdomen/GI: Soft, non-tender, with normal bowel sounds. No distension or tympany. No guarding or rebound. No evidence of tenderness throughout. Back: No spinal tenderness. No costovertebral tenderness. Full range of motion. Neuro: Awake and alert, GCS 15, oriented to person, place, time, and situation. Cranial nerves II-XII grossly intact. Motor strength 5/5 in all extremities. Sensory grossly intact. Cerebellar exam normal. Normal gait. Psych: Awake, alert, with orientation to person, place and time. Behavior, mood, and affect are within normal limits. 20:57 Musculoskeletal/extremity: Extremities: grossly normal except: noted in the left elbow: contusion, decreased ROM, tenderness. 20:57 Skin: Appearance: normal except for affected area, injury, abrasion(s), small abrasion noted, contusion(s), that are superficial, of the dorsal aspect of left forearm. Vital Signs: 19:52 BP 104 / 77; Pulse 102; Resp 20; Temp 97.6; Pulse Ox 98% on R/A; Weight 50.8 kg (R); aj1 Height 4 ft. 11 in. (149.86 cm) (R); Pain 8/10; 20:54 BP 110 / 70; Pulse 95; Resp 18; Temp 98; Pulse Ox 100% on R/A; mg2 19:52 Body Mass Index 22.62 (50.80 kg, 149.86 cm) aj1 MDM: 19:57 Patient medically screened. snw 20:39 Data reviewed: vital signs, nurses notes. Data interpreted: Pulse oximetry: on room air snw is 98 %. Interpretation: normal. Counseling: I had a detailed discussion with the patient and/or guardian regarding: the historical points, exam findings, and any diagnostic results supporting the discharge/admit diagnosis, radiology results, the need for outpatient follow up, to return to the emergency department if symptoms worsen or persist or if there are any questions or concerns that arise at home. Special discussion: I discussed in detail with the patient the higher chance of wound infection based on his presenting history. Based on the history and exam findings, there is no indication for further emergent testing or inpatient evaluation. I discussed with the patient/guardian the need to see the orthopedic surgeon for further evaluation of the symptoms. I discussed with the patient/guardian the need to see the primary care provider for further evaluation of the symptoms. 11/10 19:58 Order name: Elbow Left 3 View XRAY snw 11/10 20:24 Order name: RAD; Complete Time: 20:35 EDMS 11/10 20:00 Order name: Sling; Complete Time: 20:04 snw 11/10 20:00 Order name: Wound Care; Complete Time: 20:08 snw Administered Medications: 20:09 Drug: Hibiclens 4 % 1 application Route: Topical; Site: affected area; mg2 20:10 Drug: [place]man 5 mg-325 mg 1 tabs Route: PO; mg2 20:39 Follow up: Response: No adverse reaction mg2 Disposition: 11/11 19:06 Co-signature as Attending Physician, Germaine Tapia MD. ma2 Disposition: 11/10/19 20:37 Discharged to Home. Impression: Other fall on same level, Contusion of left forearm, Pain in left elbow. - Condition is Stable. - Discharge Instructions: Elastic Bandage and RICE, Joint Pain, Fall Prevention in the Home, Musculoskeletal Pain, Cryotherapy, How to Use a Sling. - Prescriptions for orphenadrine citrate 100 mg Oral Tablet Sustained Release - take 1 tablet by ORAL route 2 times per day As needed; 20 tablet. - Medication Reconciliation Form, Thank You Letter, Antibiotic Education, Prescription Opioid Use form. - Follow up: Emergency Department; When: As needed; Reason: Worsening of condition. Signatures: Dispatcher [employer] EDOR Tania Mena RN RN aj1 Neeru Galvan, OPERATING ROOM AIDE-C OPERATING ROOM AIDE-Germaine Stearns MD MD ma2 Martin Castro RN RN mg2 Corrections: (The following items were deleted from the chart) 11/10 20:55 20:37 11/10/2019 20:37 Discharged to Home. Impression: Other fall on same level; mg2 Contusion of left forearm; Pain in left elbow. Condition is Stable. Forms are Medication Reconciliation Form, Thank You Letter, Antibiotic Education, Prescription Opioid Use. Follow up: Emergency Department; When: As needed; Reason: Worsening of condition. snw
[2019-11-10 21:18] VITALS: BP 110/70; TEMP 98; O2SAT 100
== END 2019-11-10 20:55 | disposition home or self-care (01) ==
LOC: ER 19:37
DX: S50.12XA Contusion of left forearm, initial encounter (principal); W01.198A Fall on same level from slipping, tripping and stumbling with subsequent striking against other object, initial encounter; Y93.89 Activity, other specified; Y92.9 Unspecified place or not applicable; Z95.0 Presence of cardiac pacemaker; Z79.01 Long term (current) use of anticoagulants; I10 Essential (primary) hypertension; E03.9 Hypothyroidism, unspecified; I48.91 Unspecified atrial fibrillation; Z88.0 Allergy status to penicillin; Z88.1 Allergy status to other antibiotic agents; Z88.2 Allergy status to sulfonamides; Z88.5 Allergy status to narcotic agent; Z88.6 Allergy status to analgesic agent; Z88.8 Allergy status to other drugs, medicaments and biological substances; Z91.013 Allergy to seafood; Z91.018 Allergy to other foods; Z91.040 Latex allergy status; Z91.048 Other nonmedicinal substance allergy status
CPT/HCPCS: 99283

== ENCOUNTER 2020-02-10 14:38 | Emergency (ER) | payer MEDICAID ==
--- OUTSIDE RECORDS SUMMARY | 2020-02-10 15:00 | XMS REPORT | Clinical Summary ---
:1980 Author Organization [facility] Address [address] [place] [address] Care Team Providers Name Role Phone Yoni Mora MD Primary Care Provider Allergies Active Allergy Reactions Severity Noted Date Comments Adhesive Tape Rash Low 08/17/2018 Can use papert ape. Sulfamethoxazole-Trimetho Anaphylaxis High 08/17/2018 prim Diphenhydramine Hcl [...] Date Status ARIPiprazole Take 10 mg by mouth 0 Active (ABILIFY) 10 MG daily. disintegrating tablet ARIPiprazole Take 5 mg by mouth 0 Active (ABILIFY) 5 MG tablet nightly. albuterol (ACCUNEB) Take 1 ampule by 0 Active 1.25 mg/3 mL nebulization 3 nebulizer solution (three) times daily. ALPRAZolam (XANAX) Take 0.25 mg by 0 Active 0.25 MG tablet mouth daily as needed for Anxiety. benztropine Take 1 mg by mouth 0 Active (COGENTIN) 1 MG daily as needed. tablet fluticasone-vilantero Inhale 1 puff by 0 Active l (BREO ELLIPTA) mouth via inhaler 100-25 mcg/dose DsDv daily. busPIRone (BUSPAR) 15 Take 15 mg by mouth 0 Active MG tablet 2 (two) times daily. benztropine Take 2 mg by mouth 0 Active (COGENTIN) 2 MG 3 (three) times tablet daily as needed. ROFLUMILAST Take 500 mcg by 0 Ac tive ORALIndications: COPD mouth daily. Associated with Chronic Bronchitis digoxin (LANOXIN) Take 125 mcg by 0 Active 0.125 MG tablet mouth daily. venlafaxine Take 150 mg by 0 Act corey (EFFEXOR-XR) 150 MG mouth daily. 24 hr capsule apixaban (ELIQUIS) 5 Take 5 mg by mouth 0 Active mg Tab tablet daily. levETIRAcetam Take 1,000 mg by 0 Active (KEPPRA) 1000 MG mouth 2 (two) times tabletIndications: daily. epilepsy levothyroxine Take 125 mcg by 0 Active (SYNTHROID, mouth Every morning LEVOTHROID) 125 MCG on an empty tablet stomach. loratadine (CLARITIN) Take 10 mg by mouth 0 Active 10 mg tablet daily. pregabalin (LYRICA) Take 25 mg by mouth 0 Active 25 MG capsule nightly. triamcinolone 2 sprays by Nasal 0 Active (NASACORT) 55 mcg route daily. nasal inhaler esomeprazole (NEXIUM) Take 40 mg by mouth 0 Active 40 MG capsule daily. albuterol HFA Inhale 2 puffs by 0 Active (VENTOLIN HFA) 90 mouth via inhaler. mcg/actuation inhaler ranolazine (RANEXA) Take 500 mg by 0 Active 500 MG 12 hr tablet mouth 2 (two) times daily. tiotropium (SPIRIVA) Inhale 18 mcg by 0 Active 18 mcg inhalation mouth via inhaler capsule daily. topiramate (TOPAMAX) Take 200 mg by 0 Active 100 MG tablet mouth 2 (two) times daily. Active Problems Problem Noted Date Paresthesia of left arm and leg 08/17/2018 Social History Tobacco Use Types Packs/Day Years Used Date Unknown If Ever Smoked Alcohol Use Drinks/Week oz/Week Comments Yes Sex Assigned at Date Recorded Not on file Job Start Date Occupation Industry Not on file Not on file Not on file Travel History Travel Start Travel End No recent travel history available. Last Filed Vital Signs Not on file Plan of Treatment Not on file Results Not on fileafter 02/09/2019 Insurance Payer Benefit Plan / Group Subscriber ID Type Phone A ascencion [employer] MEDICAID MEDICAID [place] xxxxxxxxx Advance Directives For more information, please contact:[id number] [place], [place] [phone] Code Status Date Activated Date Inactivated Comments Full Code 08/17/2018 7:42 PM This code status was determined by: Patient
--- OUTSIDE RECORDS SUMMARY | 2020-02-10 15:00 | XMS REPORT | Clinical Summary ---
:1980 Author Organization [facility] Address [address] [place] [address] Care Team Providers Name Role Phone Unavailable [...] mouth daily. Active Problems Not on file Social History Tobacco Use Types Packs/Day Years [...] six or more drinks on one occasion? No t asked Sex Assigned at Date Recorded Not on file Job Start Date Occupation Industry Not on file Not on file Not on file Travel History Travel Start Travel End No recent travel history available. 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
--- OUTSIDE RECORDS SUMMARY | 2020-02-10 15:02 | XMS REPORT ---
:1980 Author Organization [facility] t Address [address] [place] [address] Care Team Providers Name Role Phone MILTON Primary Care Physician Unavailable Madelyn LARSEN Attending Clinician LEONOR Attending Clinician Unavailable BADAR Attending Clinician Unavailable LEONOR Admitting Clinician Unavailable BADAR Admitting Clinician Unavailable Problems This patient has no known problems. Allergies, Adverse Reactions, Alerts This patient has no known allergies or adverse reactions. Social History Social Habit Start Date Stop Date Quantity Comments Source History [facility] odist Alcohol Std Drinks History [facility] od[facility] Alcohol Binge Sex Assigned At [facility] ethodist Alcohol intake 2018-09-04 2018-09-[address] [facility] thodist 00:00:00 00:00:00 non-drinker of alcohol (finding) History SDND 2018-09-04 2018-09-04 1 [place] [facility] Alcohol Frequency 00:00:00 00:00:00 Smoking Status Start Date Stop Date Source Former smoker 2018-09-04 00:00:00 2018-09-04 00:00:00 [facility] Medications Ordered Filled Start Stop Current Ordering Indication Dosage Frequency Signature Comments Components Source Medication Medication Date Date Medication? Clinician (SIG) Name Name digOXIN 2017-09 Yes 125ug QD Take 125 [place] (LANOXIN) 2-12 mcg by Methodi 125 mcg 01:13: mouth st tablet 58 daily. ARIPiprazol 2017-09 Yes 10mg QD Take 10 mg [place] e (ABILIFY) 2-12 by mouth Meth jamie 10 MG 01:13: daily. st tablet 27 ARIPiprazol 2017-09 Yes 5mg QD Take 5 mg [place] (ABILIFY) 2-12 by mouth Meth jamie 5 MG tablet 01:13: daily. st 27 benztropine 2017-09 Yes 1mg Q.5D Take 1 mg [place] (COGENTIN) 2-12 by mouth 2 Met hodi 1 MG tablet 01:13: (two) st 27 times a day. busPIRone 2017-09 Yes 15mg Q.[id number] Take 15 mg [place] (BUSPAR) 10 2-12 [id number] by mouth 3 Methodi MG tablet 01:13: 3D (three) st 27 times a day. Procedures This patient has no known procedures. Plan of Care Planned Activity Planned Date Details Comments Source Future Scheduled 2020-04-25 INFLUENZA VACCINE [facility] Test 00:00:00 [code = INFLUENZA VACCINE] Future Scheduled 2002 Screening for [facility]odist Test 00:00:00 malignant neoplasm of cervix (procedure) [code = 892017102] Encounters Start End Encounter Admission Attending Care Care Encounter Source Date/Time Date/Time Type Type Clinicians Facility Department ID 2019-12-18 2019-12-18 Telephone Clifford Bhatia [id number] 00:00:00 00:00:00 Gucci tse [id number] [facility] [id number] 2017-09-06 2017-09-08 [id number] 10:12:00 02:32:00 [facility] Results Test Description Test Time Test Comments Results Result Comments Source POCT-GLUCOSE METER 2018-08-21 10:22:00 Test Item Value Reference [facility]ation [facility] (ARNOL) (test 102 mg/dL 70-110 TESTED AT [facility] [address] [facility] code = 1538) [facility] [id number] MR, MRA, BRAIN, WITHOUT [id number] 09:32:00Reason for exam:->Ischemic Stroke EvaluationFINAL REPORT MRA Head CLINICAL HISTORY: Ischemic Stroke TECHNIQUE: MRA of the head utilizing 3-D mdib-ts-xlovad technique, with 3-D reconstructions. COMPARISON: None FINDINGS: There is no evidence of intracranial aneurysm, focal stenosis, or major branch vessel occlusion. IMPRESSION: No evidence for a major [place] proximal branch vessel occlusion. MRA Neck CLINICAL HISTORY: Ischemic Stroke TECHNIQUE: MRA of the neck utilizing 2-D and 3-D gxkr-on-oyjrqj technique, with 3-D reconstructions. COMPARISON: None FINDINGS: The carotid arteries in the neck are patent including their bifurcations. There is antegrade flow in the vertebral arteries in the neck. IMPRESSION: No evidence of hemodynamically significant stenosis in the cervical carotid or vertebral arteries by NASCET criteria. Signed: Santos Neff MDReport Verified Date/Time: 08/21/2018 09:32:09 Reading Location: [address] Neuro Reading Room MR, MRA, NECK, WITHOUT IV [id number] 09:32:00Reason for exam:->Ischemic Stroke EvaluationFINAL REPORT MRA Head CLINICAL HISTORY: Ischemic Stroke TECHNIQUE: MRA of the head utilizing 3-D aqmp-xl-mntwxp technique, with 3-D reconstructions. COMPARISON: None FINDINGS: There is no evidence of intracranial aneurysm, focal stenosis, or major branch vessel occlusion. IMPRESSION: No evidence for a major [place] proximal branch vessel occlusion. MRA Neck CLINICAL HISTORY: Ischemic Stroke TECHNIQUE: MRA of the neck utilizing 2-D and 3-D akwy-nt-gznvfs technique, with 3-D reconstructions. COMPARISON: None FINDINGS: The carotid arteries in the neck are patent including their bifurcations. There is antegrade flow in the vertebral arteries in the neck. IMPRESSION: No evidence of hemodynamically significant stenosis in the cervical carotid or vertebral arteries by NASCET criteria. Signed: Santos Neff MDReport Verified Date/Time: 08/21/2018 09:32:09 Reading Location: [facility] C013V Neuro Reading Room MR, BRAIN, WITHOUT [id number] 09:25:00Reason for exam:- >Ischemic Stroke EvaluationFINAL REPORT MRI Brain without contrast [...] is preserved. The major intracranial flow-voids appear p atent. There is mucosal disease throughout the paranasal sinuses superimposed air-fluid levels. IMPRESSION: No evidence of infarct, hemorrhage, or hydrocephalus. Acute on chronic pansinusitis. Signed: Santos Neffeport Verified Date/Time: 08/21/2018 09:25:25 Reading Location: [facility] C013V Neuro R eading Room POCT-GLUCOSE [id number] 21:26:00 Test Item Value Reference Range Interpretation Comments POC-GLUCOSE METER 119 mg/dL 70-110 H TESTED AT [place] [address] ([facility]) (test code = [facility] 1538) [id number] POCT-GLUCOSE [id number] 18:03:00 Test Item Value Reference Range Interpretation Comments POC-GLUCOSE METER 119 mg/dL 70-110 H TESTED AT [place] [address] ([facility]) (test code = [facility] 1538) [id number] POCT-GLUCOSE [id number] 12:39:00 Test Item Value Reference Range Interpretation Comments POC-GLUCOSE METER 120 mg/dL 70-110 H TESTED AT [place] [address] ([facility]) (test code = AYLIN Rivera [facility] 1538) [address] RAD, CHEST, 1 VIEW, NON [id number] 12:04:00Reason for exam:->To Locate Heart Device (Pacemaker)Should this be performed at the bedside?->YesFINAL REPORT RAD, CHEST, 1 VIEW, NON DEPT INDICATION: To Locate Heart Device (Pacemaker) COMPARISON: Prior day's exam FINDINGS: Portable frontal view of the chest. IMPRESSION:Support Lines: Right subclavian approach pacer with grossly appropriate positioning of the lead wires. Lungs and pleura: Lungs are clear. No effusion. No pneumothorax.Heart and mediastinum: Unremarkable .Additional findings: None. Signed: JR Garcia Robert MDReplissette Verified Date/Time: 08/20/2018 12:04:06 Reading Location: [facility] Radiology Reading Room POCT-GLUCOSE [id number] 09:17:00 Test Item Value Reference Range Interpretation Comments POC-GLUCOSE METER 121 mg/dL 70-110 H TESTED AT [facility] 6720 (BEAKER) (test code = AYLIN Rivera [facility] 1538) [address] BASIC METABOLIC [id number] 06:56:00 Test Item Value Reference Range Interpretation Comments SODIUM (BEAKER) 140 meq/L 136-145 (test code = 381) POTASSIUM (BEAKER) 4.0 meq/L 3.5-5.1 (test code = 379) CHLORIDE (BEAKER) 108 meq/L 98-107 H (test code = 382) CO2 (BEAKER) (test 25 meq/L 22-29 code = 355) BLOOD UREA NITROGEN 11 mg/dL 7-21 (BEAKER) (test code = 354) CREATININE (BEAKER) 0.69 mg/dL 0.57-1.25 (test code = 358) GLUCOSE RANDOM 94 mg/dL 70-105 (BEAKER) (test code = 652) CALCIUM (BEAKER) 9.5 mg/dL 8.4-10.2 (test code = 697) EGFR (BEAKER) (test 96 mL/min/1.73 ESTIMA ERIC GFR IS code = 1092) sq m NOT ACCURATE CREATININE CLEARANCE IN PREDICTING GLOMERULAR FILTRATION RATE . ESTIMATED GFR I S NOT APPLICABLE FOR DIALYSIS PATIEN TS. POCT-GLUCOSE [id number] 21:09:00 Test Item Value Reference Range Interpretation Comments POC-GLUCOSE METER 109 mg/dL 70-110 TESTED AT [facility] 67[address] (BEAKER) (test code = AYLIN Rivera [facility] 1538) [id number] POCT-GLUCOSE [id number] 17:15:00 Test Item Value Reference Range Interpretation Comments POC-GLUCOSE METER 117 mg/dL 70-110 H TESTED AT [facility] 67[address] (BEAKER) (test code = AYLIN Rivera [facility] 1538) [id number] VITAMIN B12 AND [id number] 06:39:00 Test Item Value Reference Range Interpretation Comments VITAMIN B12 (BEAKER) (test code = 524 pg/mL 213-816 774) FOLATE (BEAKER) (test code = 362) 13.5 ng/mL >=7.0 BASIC METABOLIC [id number] 05:48:00 Test Item Value Reference Range Interpretation Comments SODIUM (BEAKER) 139 meq/L 136-145 (test code = 381) POTASSIUM (BEAKER) 4.0 meq/L 3.5-5.1 (test code = 379) CHLORIDE (BEAKER) 107 meq/L 98-107 (test code = 382) CO2 (BEAKER) (test 24 meq/L 22-29 code = 355) BLOOD UREA NITROGEN 11 mg/dL 7-21 (BEAKER) (test code = 354) CREATININE (BEAKER) 0.72 mg/dL 0.57-1.25 (test code = 358) GLUCOSE RANDOM 107 mg/dL 70-105 H (BEAKER) (test code = 652) CALCIUM (BEAKER) 9.5 mg/dL 8.4-10.2 (test code = 697) EGFR (BEAKER) (test 91 mL/min/1.73 ESTIMA ERIC GFR IS code = 1092) sq m NOT ACCURATE CREATININE CLEARANCE IN PREDICTING GLOMERULAR FILTRATION RATE . ESTIMATED GFR I S NOT APPLICABLE FOR DIALYSIS PATIEN TS. [id number] 15:42:00 Test Item Value Reference Range Interpretation Comments RPR SCREEN (BEAKER) (test code = Nonreactive Nonreactive 420) HEMOGLOBIN [id number] 09:14:00 Test Item Value Reference Range Interpretation Comments HEMOGLOBIN A1C (BEAKER) (test code = 5.3 % 4.3-6.1 368) TSH/FREE T4 IF [id number] 04:49:00 Test Item Value Reference Range Interpretation Comments THYROID STIMULATING HORMONE 3.18 uIU/mL 0.35-4.94 (BEAKER) (test code = 772) BASIC METABOLIC [id number] 04:38:00 Test Item Value Reference Range Interpretation Comments SODIUM (BEAKER) 139 meq/L 136-145 (test code = 381) POTASSIUM (BEAKER) 4.2 meq/L 3.5-5.1 Specimen slightly (test code = 379) hemolyzed CHLORIDE (BEAKER) 107 meq/L 98-107 (test code = 382) CO2 (BEAKER) (test 26 meq/L 22-29 code = 355) BLOOD UREA NITROGEN 10 mg/dL 7-21 (BEAKER) (test code = 354) CREATININE (BEAKER) 0.73 mg/dL 0.57-1.25 Specimen slightly (test code = 358) hemolyzed GLUCOSE RANDOM 104 mg/dL 70-105 (BEAKER) (test code = 652) CALCIUM (BEAKER) 9.7 mg/dL 8.4-10.2 (test code = 697) EGFR (BEAKER) (test 90 mL/min/1.73 ESTIMA ERIC GFR IS code = 1092) sq m NOT ACCURATE CREATININE CLEARANCE IN PREDICTING GLOMERULAR FILTRATION RATE . ESTIMATED GFR I S NOT APPLICABLE FOR DIALYSIS PATIEN TS. LIPID [id number] 04:38:00 Test Item Value Reference Range Interpretation Comments TRIGLYCERIDES (BEAKER) 121 mg/dL Speci men slightly (test code = 540) hemolyzed CHOLESTEROL (BEAKER) 172 mg/dL Specime n slightly (test code = 631) hemolyzed HDL CHOLESTEROL (BEAKER) 36 mg/dL (test code = 976) LDL CHOLESTEROL 112 mg/dL CALCULATED (BEAKER) (test code = 633) Triglyceride Reference Range: Low Risk <150 Borderline 150-199 High Risk 200-499 Very High Risk >=500Cholesterol Reference Range: Low Risk <200 Borderline 200-239 High Risk >240HDL Cholesterol Reference Range: Low Risk >=60 High Risk <40LDL Cholesterol Reference Range: Optimal <100 Near Optimal 100-129 Borderline 130-159 High 160-189 Very High >=190HEPATIC FUNCTION [id number] 04:38:00 Test Item Value Reference Range Interpretation Comments TOTAL PROTEIN (BEAKER) 6.9 gm/dL 6.0-8.3 Speci men slightly (test code = 770) hemolyzed ALBUMIN (BEAKER) (test 3.8 g/dL 3.5-5.0 Speci men slightly code = 1145) hemolyzed BILIRUBIN TOTAL 0.3 mg/dL 0.2-1.2 Specimen sli ghtly (BEAKER) (test code = hemoly zed 377) BILIRUBIN DIRECT 0.1 mg/dL 0.1-0.5 Specimen sl ightly (BEAKER) (test code = hemoly zed 706) ALKALINE PHOSPHATASE 95 U/L 40-150 (BEAKER) (test code = 346) AST (SGOT) (BEAKER) 20 U/L 5-34 Specimen slightly (test code = 353) hemolyzed ALT (SGPT) (BEAKER) 13 U/L 6-55 Specimen slightly (test code = 347) hemolyzed CBC (HEMOGRAM ONLY)2018-08-18 03:55:00 Test Item Value Reference Range Interpretation Comments WHITE BLOOD CELL COUNT (BEAKER) 5.7 K/ L 3.5-10.5 (test code = 775) RED BLOOD CELL COUNT (BEAKER) 4.44 M/ L 3.93-5.22 (test code = 761) HEMOGLOBIN (BEAKER) (test code = 12.9 GM/DL 11.2-15.7 410) HEMATOCRIT (BEAKER) (test code = 39.8 % 34.1-44.9 411) MEAN CORPUSCULAR VOLUME (BEAKER) 89.6 fL 79.4-94.8 (test code = 753) MEAN CORPUSCULAR HEMOGLOBIN 29.1 pg 25.6-32.2 (BEAKER) (test code = 751) MEAN CORPUSCULAR HEMOGLOBIN CONC 32.4 GM/DL 32.2-35.5 (BEAKER) (test code = 752) RED CELL DISTRIBUTION WIDTH 12.6 % 11.7-14.4 (BEAKER) (test code = 412) PLATELET COUNT (BEAKER) (test 210 K/CU MM 150-450 code = 756) MEAN PLATELET VOLUME (BEAKER) 10.3 fL 9.4-12.3 (test code = 754) NUCLEATED RED BLOOD CELLS 0 /100 WBC 0-0 (BEAKER) (test code = 413) AFB Culture and [id number] 13:24:00Specimen/Source: Wound/PACEMAKERCollected: 09/05/2017 19:45 Status: Final Last Updated: 11/01/2017 13:24 NKT-Rgsvh-Rbzwsvxjpcat (Final) (Final) 09/07/17 No acid fast bacill seen on direct smear Culture Result (Final) (Final) 11/01/17 No growth of AFB at six (6) weeksFungus Culture with [id number] 12:12:00 Specimen/Source: Wound/PACEMAKERCollected: 09/05/2017 19:45 Status: Final Last Updated: 10/22/2017 12:12 Fungal Smear Result (Final) (Final) 09/06/17 No yeast or hyphae seen Culture Result (Final) (Final) 10/22/17 No fungus isolated at 6 weeksCulture, Blood [id number] 08:23:00Specimen: BloodCollected: 09/04/2017 20:30 Status: Final Last Updated: 09/10/2017 08:23 Culture Result (Final) (Final) No Growth After 5 DaysCulture, Blood [id number] 08:23:00Specimen: BloodCollected: 09/04/2017 20:15 Status: Final Last Updated: 09/10/2017 08:23 Culture Result (Final) (Final) No Growth After 5 DaysCulture, Wound [id number] 08:52:00Specimen: WoundCollected: 09/05/2017 19:45 Status: Final Last Updated: 09/08/2017 08:52 Gram Stain (Final) (Final) 09/06/17 No organisms seen, Few WBC's Culture Result (Final) (Final) 09/08/17 Anaerobic culture:No anaerobes isolated at 3 days Isolate (Final) (Final) 09/07/17Few Staph-coag positive Isolate Staph-coag positive JERMAINE (mcg/ml) Amoxicillin/Clav (AUG)<=4/2 Susceptible Ampicillin (AM) >8 Resistant Ampicillin/Sulb (A/S) <=8/4 Susceptible Cefazolin (CFZ) <=4 Susceptible Ceftriaxone ([employer]ER) <=4 Susceptible Chloramphenicol (C) <=8 Susceptible Ciprofloxacin (CP) <=1 Susceptible Clindamycin (CM) 0.5 Susceptible Erythromycin (E) <=0.25 Susceptible Gentamicin (GM) <=1 Susceptible Imipenem (IMP) <=4 Susceptible Levofloxacin (LEV) <=0.5 Susceptible Linezolid (LNZ) 4 Susceptible Oxacillin (OX1) 0.5 Susceptible Penicillin (P) >8 Resistant Rifampin (RA) <=1 Susceptible Tetracycline (TE) <=1 Susceptible Trimethoprim/Sulfa <=0.5/9.Susceptible (SXT) 5 Vancomycin (VA) 2 SusceptibleRenal [id number] 08:51:00 Test Item Value Reference Range Interpretation Comments Sodium (test code = 139 mmol/L 135-145 N NA) Potassium (test 4.5 mmol/L 3.5-5.1 N code = K) Chloride (test code 103 mmol/L 98-105 N = CL) Carbon Dioxide 20 mmol/L 22-29 L (test code = CO2) Glucose (test code 101 mg/dL 70-115 N = GLU) Blood Urea Nitrogen 5 mg/dL 6-20 L (test code = BUN) Creatinine (test 0.6 mg/dL 0.5-0.9 N code = CREAT) Calcium (test code 8.8 mg/dL 8.3-10.5 N = CA) Albumin (test code 3.6 g/dL 3.5-5.2 N = ALB) Phosphorus (test 3.4 mg/dL 2.70-4.50 N code = PO4) BUN/Creatinine 8.3 Ratio (test code = BCRATIO) Anion Gap (test 16 mmol/L 7-16 N code = AGAP) Estimated GFR (test >60 eGFR (es timated code = GFR) mL/min/1.73m2 Glomerular Tyrese tration Rate) is an est imated value,calculate d from the patient's s stacey creatinine usin g the MDRD equation.I t is NOT the patient 's actual GFR. The eGFR provides a more clinicallyusefu l measure of kidn ey disease than se rum creatinine alone.This calculation omid es sex and race into account, if the informationis provided. If th e race is not provided , and the patient isAfrican-Ameri can, multiply by 1.2 12. If sex is not prov ided, and thepatient is female, multipl y by 0.742. Results for patients <18 ye ars ofage have not been validated by th e MDRD study and shoul d be interpretedwith caution.eGFR Re sult Interpretation: eGFR > or = 60 is in t he Normal RangeeGF R < 60 may mean kidney diseaseeGFR < 1 5 may mean kidney failureRange s recommended by the National Kidney Foundation,http ://nkd ep.nih.gov CBC with [id number] 07:39:00 Test Item Value Reference Range Interpretation Comments WBC (test code = WBC) 6.2 K/cumm 4.4-10.5 N RBC (test code = RBC) 4.15 M/cumm 3.75-5.20 N Hemoglobin (test code = HGB) 12.2 gm/dL 12.2-14.8 N Hematocrit (test code = HCT) 36.2 % 36.5-44.4 L MCV (test code = MCV) 87.3 fL 80-100 N MCH (test code = MCH) 29.5 pg 27.0-32.5 N MCHC (test code = MCHC) 33.8 g/dL 32.0-37.5 N RDW (test code = RDW) 12.7 % 11.5-14.5 N Platelet Count (test code = 244 K/cumm 140-440 N PLTCT) MPV (test code = MPV) 9.7 fL Diff Method (test code = DIFFM) Auto Neutrophil (test code = NEUT) 62.9 % 36-70 N Lymphocyte (test code = LYMPH) 27.1 % 12-44 N Monocyte (test code = MONO) 5.0 % 0-11 N Eosinophil (test code = EOS) 4.6 % 0-7 N Basophil (test code = BASO) 0.6 % 0-2 N Neutro Abs (test code = ANEUT) 3.9 K/cumm 1.6-7.4 N Lymph Abs (test code = ALYMPH) 1.7 K/cumm 0.5-4.6 N [place] Abs (test code = AMONO) 0.3 K/cumm 0.0-1.2 N Eos Abs (test code = AEOS) 0.29 K/cumm 0.00-0.74 N Baso Abs (test code = ABASO) 0.0 K/cumm 0.00-0.21 N Vancomycin, [id number] 12:33:00 Test Item Value Reference Range Interpretation Comments Vanco, Trou (test code = VANTR) 7.9 ug/mL 10.0-20.0 L Magnesium, [id number] 06:37:00 Test Item Value Reference Range Interpretation Comments Magnesium (test code = MG) 2.4 mg/dL 1.7-2.5 N Renal [id number] 06:29:00 Test Item Value Reference Range Interpretation Comments Sodium (test code = 137 mmol/L 135-145 N NA) Potassium (test 3.9 mmol/L 3.5-5.1 N code = K) Chloride (test code 99 mmol/L 98-105 N = CL) Carbon Dioxide 28 mmol/L 22-29 N (test code = CO2) Glucose (test code 114 mg/dL 70-115 N = GLU) Blood Urea Nitrogen 13 mg/dL 6-20 N (test code = BUN) Creatinine (test 0.6 mg/dL 0.5-0.9 N code = CREAT) Calcium (test code 8.8 mg/dL 8.3-10.5 N = CA) Albumin (test code 3.6 g/dL 3.5-5.2 N = ALB) Phosphorus (test 4.2 mg/dL 2.70-4.50 N code = PO4) BUN/Creatinine 21.7 Ratio (test code = BCRATIO) Anion Gap (test 10 mmol/L 7-16 N code = AGAP) Estimated GFR (test >60 eGFR (es timated code = GFR) mL/min/1.73m2 Glomerular Tyrese tration Rate) is an est imated value,calculate d from the patient's s stacey creatinine usin g the MDRD equation.I t is NOT the patient 's actual GFR. The eGFR provides a more clinicallyusefu l measure of kidn ey disease than se rum creatinine alone.This calculation omid es sex and race into account, if the informationis provided. If th e race is not provided , and the patient isAfrican-Ameri can, multiply by 1.2 12. If sex is not prov ided, and thepatient is female, multipl y by 0.742. Results for patients <18 ye ars ofage have not been validated by th e MDRD study and shoul d be interpretedwith caution.eGFR Re sult Interpretation: eGFR > or = 60 is in t he Normal RangeeGF R < 60 may mean kidney diseaseeGFR < 1 5 may mean kidney failureRange s recommended by the National Kidney Foundation,http ://nkd ep.nih.gov BHCG, Serum, [id number] 06:26:00 Test Item Value Reference Range Interpretation Comments Preg Qual [Se] (test code = BSHCG) Negative Negative N CBC with [id number] 06:24:00 Test Item Value Reference Range Interpretation Comments WBC (test code = WBC) 5.7 K/cumm 4.4-10.5 N RBC (test code = RBC) 4.10 M/cumm 3.75-5.20 N Hemoglobin (test code = HGB) 11.6 gm/dL 12.2-14.8 L Hematocrit (test code = HCT) 35.8 % 36.5-44.4 L MCV (test code = MCV) 87.5 fL 80-100 N MCH (test code = MCH) 28.4 pg 27.0-32.5 N MCHC (test code = MCHC) 32.5 g/dL 32.0-37.5 N RDW (test code = RDW) 12.4 % 11.5-14.5 N Platelet Count (test code = 241 K/cumm 140-440 N PLTCT) MPV (test code = MPV) 7.0 fL Diff Method (test code = DIFFM) Auto Neutrophil (test code = NEUT) 63.2 % 36-70 N Lymphocyte (test code = LYMPH) 27.0 % 12-44 N Monocyte (test code = MONO) 6.3 % 0-11 N Eosinophil (test code = EOS) 3.1 % 0-7 N Basophil (test code = BASO) 0.3 % 0-2 N Neutro Abs (test code = ANEUT) 3.6 K/cumm 1.6-7.4 N Lymph Abs (test code = ALYMPH) 1.6 K/cumm 0.5-4.6 N Bethel Abs (test code = AMONO) 0.4 K/cumm 0.0-1.2 N Eos Abs (test code = AEOS) 0.18 K/cumm 0.00-0.74 N Baso Abs (test code = ABASO) 0.0 K/cumm 0.00-0.21 N XR CHEST 1 [id number] 16:29:55XR CHEST 1 VIEWLOCATION: [id number]: None.INDICATION: REVIEW PICC LINE PLACEMENTDISCUSSION:AP chest and [...] Thyroxine)2017-09-05 05:59:00 Test Item Value Reference Range Interpretation Comments T4, Free (test code = FT4) 1.15 ng/dL 0.930-1.700 N Thyroid Stimulating Hormone (TSH)2017-09-05 05:59:00 Test Item Value Reference Range Interpretation Comments TSH (test code = TSH) 3.44 mIU/mL 0.270-4.200 N Lipid [id number] 05:47:00 Test Item Value Reference Range Interpretation Comments Cholesterol (test 160 mg/dL 0-200 N code = CHOL) Triglycerides (test 126 mg/dL 9-200 N code = TRIG) HDL (test code = 35 mg/dL 50-60 L HDL) Chol/HDL (test code 4.6 Ratio 0.0-4.4 H = CHOLPHDL) LDL, Calculated 100 0-130 N (NOTE)RISK O F HEART (test code = LDLC) DISEASEPu blished by [place] Heart AssociationAnal yte Optim al Boderline Increased RiskC HOL <200 200-239 >240TRI G <150 150-199 >200HDL Male: >60 <40HDL Female: >60 <50 LDL < 100 130-15 9 >160 LDL NEAR OPTIMAL IS 100- 129 VLDL (test code = 25 mg/dL 5-40 N VLDL) LDL/HDL (test code = 3 LDLPHDL) Basic Metabolic [id number] 05:47:00 Test Item Value Reference Range Interpretation Comments Sodium (test code = 139 mmol/L 135-145 N NA) Potassium (test 4.1 mmol/L 3.5-5.1 N code = K) Chloride (test code 102 mmol/L 98-105 N = CL) Carbon Dioxide 27 mmol/L 22-29 N (test code = CO2) Glucose (test code 103 mg/dL 70-115 N = GLU) Blood Urea Nitrogen 9 mg/dL 6-20 N (test code = BUN) Creatinine (test 0.6 mg/dL 0.5-0.9 N code = CREAT) Calcium (test code 9.2 mg/dL 8.3-10.5 N = CA) BUN/Creatinine 15.0 Ratio (test code = BCRATIO) Anion Gap (test 10 mmol/L 7-16 N code = AGAP) Estimated GFR (test >60 eGFR (es timated code = GFR) mL/min/1.73m2 Glomerular Tyrese tration Rate) is an est imated value,calculate d from the patient's s stacey creatinine usin g the MDRD equation.I t is NOT the patient 's actual GFR. The eGFR provides a more clinicallyusefu l measure of kidn ey disease than se rum creatinine alone.This calculation omid es sex and race into account, if the informationis provided. If th e race is not provided , and the patient isAfrican-Ameri can, multiply by 1.2 12. If sex is not prov ided, and thepatient is female, multipl y by 0.742. Results for patients <18 ye ars ofage have not been validated by th e MDRD study and shoul d be interpretedwith caution.eGFR Re sult Interpretation: eGFR > or = 60 is in t he Normal RangeeGF R < 60 may mean kidney diseaseeGFR < 1 5 may mean kidney failureRange s recommended by the [employer] Foundation,http ://nkd ep.nih.gov Magnesium, [id number] 05:47:00 Test Item Value Reference Range Interpretation Comments Magnesium (test code = MG) 2.3 mg/dL 1.7-2.5 N CBC with [id number] 05:36:00 Test Item Value Reference Range Interpretation Comments WBC (test code = WBC) 6.4 K/cumm 4.4-10.5 N RBC (test code = RBC) 4.56 M/cumm 3.75-5.20 N Hemoglobin (test code = HGB) 13.4 gm/dL 12.2-14.8 N Hematocrit (test code = HCT) 39.0 % 36.5-44.4 N MCV (test code = MCV) 85.5 fL 80-100 N MCH (test code = MCH) 29.3 pg 27.0-32.5 N MCHC (test code = MCHC) 34.3 g/dL 32.0-37.5 N RDW (test code = RDW) 12.6 % 11.5-14.5 N Platelet Count (test code = 252 K/cumm 140-440 N PLTCT) MPV (test code = MPV) 9.7 fL Diff Method (test code = DIFFM) Auto Neutrophil (test code = NEUT) 56.6 % 36-70 N Lymphocyte (test code = LYMPH) 33.8 % 12-44 N Monocyte (test code = MONO) 5.3 % 0-11 N Eosinophil (test code = EOS) 3.7 % 0-7 N Basophil (test code = BASO) 0.6 % 0-2 N Neutro Abs (test code = ANEUT) 3.7 K/cumm 1.6-7.4 N Lymph Abs (test code = ALYMPH) 2.2 K/cumm 0.5-4.6 N Bethel Abs (test code = AMONO) 0.3 K/cumm 0.0-1.2 N Eos Abs (test code = AEOS) 0.24 K/cumm 0.00-0.74 N Baso Abs (test code = ABASO) 0.0 K/cumm 0.00-0.21 N Partial Thromboplastin [id number] 21:26:00 Test Item Value Reference Range Interpretation Comments aPTT (test code = PTT) 29.00 seconds 24.39-37.25 N Prothrombin [id number] 21:26:00 Test Item Value Reference Range Interpretation Comments PT (test code = PT) 10.70 seconds 9.78-13.35 N INR (test code = INR) 0.95 Ratio 0.6-1.2 N Comprehensive Metabolic [id number] 21:23:00 Test Item Value Reference Range Interpretation Comments Sodium (test code = 138 mmol/L 135-145 N NA) Potassium (test 3.7 mmol/L 3.5-5.1 N code = K) Chloride (test code 99 mmol/L 98-105 N = CL) Carbon Dioxide 27 mmol/L 22-29 N (test code = CO2) Glucose (test code 106 mg/dL 70-115 N = GLU) Blood Urea Nitrogen 7 mg/dL 6-20 N (test code = BUN) Creatinine (test 0.6 mg/dL 0.5-0.9 N code = CREAT) Calcium (test code 9.2 mg/dL 8.3-10.5 N = CA) Prot Total (test 6.9 g/dL 6.4-8.3 N code = TP) Albumin (test code 4.1 g/dL 3.5-5.2 N = ALB) A/G Ratio (test 1.5 Ratio code = AGRATIO) Globulin (test code 2.8 2.9-3.1 L = GLOB) Bili Total (test <0.1 mg/dL 0.1-0.9 L code = TBIL) Alk Phos (test code 102 U/L 35-104 N = APHOS) AST (test code = 12 U/L 1-32 N AST) ALT (test code = 10 U/L 1-33 N ALT) BUN/Creatinine 11.7 Ratio (test code = BCRATIO) Anion Gap (test 12 mmol/L 7-16 N code = AGAP) Estimated GFR (test >60 eGFR (es timated code = GFR) mL/min/1.73m2 Glomerular Tyrese tration Rate) is an est imated value,calculate d from the patient's s stacey creatinine usin g the MDRD equation.I t is NOT the patient 's actual GFR. The eGFR provides a more clinicallyusefu l measure of kidn ey disease than se rum creatinine alone.This calculation omid es sex and race into account, if the informationis provided. If th e race is not provided , and the patient isAfrican-Ameri can, multiply by 1.2 12. If sex is not prov ided, and thepatient is female, multipl y by 0.742. Results for patients <18 ye ars ofage have not been validated by e MDRD study and shoul d be interpretedwith caution.eGFR Re sult Interpretation: eGFR > or = 60 is in t he Normal RangeeGF R < 60 may mean kidney diseaseeGFR < 1 5 may mean kidney failureRange s recommended by the National Kidney Foundation,http ://nkd ep.nih.gov CBC with [id number] 21:16:00 Test Item Value Reference Range Interpretation Comments WBC (test code = WBC) 8.3 K/cumm 4.4-10.5 N RBC (test code = RBC) 4.50 M/cumm 3.75-5.20 N Hemoglobin (test code = HGB) 13.2 gm/dL 12.2-14.8 N Hematocrit (test code = HCT) 37.9 % 36.5-44.4 N MCV (test code = MCV) 84.4 fL 80-100 N MCH (test code = MCH) 29.4 pg 27.0-32.5 N MCHC (test code = MCHC) 34.8 g/dL 32.0-37.5 N RDW (test code = RDW) 12.6 % 11.5-14.5 N Platelet Count (test code = 265 K/cumm 140-440 N PLTCT) MPV (test code = MPV) 9.7 fL Diff Method (test code = DIFFM) Auto Neutrophil (test code = NEUT) 67.0 % 36-70 N Lymphocyte (test code = LYMPH) 25.7 % 12-44 N Monocyte (test code = MONO) 4.7 % 0-11 N Eosinophil (test code = EOS) 2.0 % 0-7 N Basophil (test code = BASO) 0.6 % 0-2 N Neutro Abs (test code = ANEUT) 5.6 K/cumm 1.6-7.4 N Lymph Abs (test code = ALYMPH) 2.2 K/cumm 0.5-4.6 N [place]hel Abs (test code = AMONO) 0.4 K/cumm 0.0-1.2 N Eos Abs (test code = AEOS) 0.17 K/cumm 0.00-0.74 N Baso Abs (test code = ABASO) 0.1 K/cumm 0.00-0.21 N
--- OUTSIDE RECORDS SUMMARY | 2020-02-10 15:26 | XMS REPORT | Summary of Care ---
:1980 Author Organization [facility] Address [address] [place] [address] Care Team Providers Name Role Phone Diya Mora MD Primary Care Provider Lila Reyes Insurance Hmo Reason for Visit Reason Comments Assessment Rx Concern/Question Encounter Details Date Type Department Care Team Description 11/04/2019 Telephone [facility] CardiologyMadelyn, Jonathan; Rx [facility] MD Gucci Concern/Question [address] [place] [id number] [phone] Allergies Active Allergy Reactions Severity Noted Date Comments Adhesive Tape-Silicones Rash Low 08/20/2013 Can use papertape. Aluminum Aspirin Anaphylaxis High 01/19/2016 Aspirin Anaphylaxis High 12/31/2013 Diphenhydramine Hcl Hives 01/04/2018 Diltiazem Hcl Shortness of Breath 06/25/2019 Cefixime Rash Low 04/29/2019 Ciprofloxacin Other - See comments 04/20/2016 Muscle aches Clindamycin Rash 01/04/2018 Coconut Rash 08/04/2018 Codeine Rash 06/05/2018 Has recently ta danish codeine Tolterodine Tartrate Rash 08/20/2013 Diltiazem Shortness of Breath Medium 05/30/2019 Doxycycline Rash 04/29/2019 Fish Containing Products Anaphylaxis High 04/29/2019 Fam [place] history of allergic reacti on. Seafood/Fish Rash, Swelling 08/04/2018 Gabapentin Rash 01/04/2018 Iodine Rash 01/04/2018 Ivabradine Rash 06/25/2019 Latex Rash 08/20/2013 "blisters" Morphine Anaphylaxis High 06/29/2017 Penicillin Anaphylaxis High 01/19/2016 Penicillins Anaphylaxis 08/20/2013 Quetiapine Fumarate Rash 04/20/2016 Sulfa (Sulfonamide Rash Low 08/20/2013 Antibiotics) Tramadol Unknown - See 06/22/2017 Rash comments documented as of this encounter (statuses as of 11/13/2019) Medications Medication Sig Dispensed Refills Start Date End Date Status loratadine as needed. 0 06/05/2013 Active (CLARITIN) 10 mg tablet ALBUTEROL SULFATE Inhale. 0 Ac tive (PROAIR HFA INHALE) albuterol Use 1 Ampule 0 Active (ACCUNEB) 1.25 as directed mg/3 mL nebulizer every 6 (six) solution hours as needed. DALIRESP 500 mcg daily. 0 08/25/2013 Ac tive Tab ABILIFY 10 mg TK 1 T PO QHS 1 06/16/2017 A ctive tablet ABILIFY 5 mg TK 1 T PO D, 1 06/16/2017 Act corey tablet in am benztropine 1 mg TK [...] (TRUEPLUS Use as 100 Each 3 07/18/2018 A ctive LANCETS) 33 gauge directed. R MiscIndications: 73.03, Check Prediabetes once daily atorvastatin 10 mg Take 10 mg by 1 08/30/2018 Active tablet mouth daily. levETIRAcetam 500 Take 2 120 tablet 6 04/22/2019 Active mg tablets by tabletIndications: mouth 2 (two) Seizure cerebral times daily. sucralfate Take 10 mL by 1200 mL 2 05/22/2019 Acti ve (CARAFATE) 100 mouth before mg/mL suspension meals and at bedtime. acetaminophen-code Take 1 tablet 30 tablet 0 09/28/2019 Active ine by mouth (TYLENOL-CODEINE every 4 #3) 300-30 mg (four) hours tabletIndications: as needed for Chest pain, Pain (scale unspecified type 1-3). pregabalin Take 25 mg by 0 Activ e (LYRICA) 25 mg mouth at capsule bedtime. pantoprazole 40 mg Take 1 tablet 30 tablet 0 10/31/2019 Active EC by mouth tabletIndications: daily. Syncope, unspecified syncope type, Ventricular tachycardia, Intercostal pain, Essential hypertension apixaban (ELIQUIS) Take 5 mg by 0 11/06/19 2 Discontinued 5 mg mouth 2 (two) 0 tabletIndications: times daily. Inappropriate sinus tachycardia, Sinus tachycardia, Sick sinus syndrome, Palpitations, Atypical chest pain, Essential hypertension, History of DVT (deep vein thrombosis), PAF (paroxysmal atrial fibrillation), Dizzy spells metoprolol Take 1 tablet 60 tablet 3 10/30/2019 Disc ontinued succinate XL 25 mg by mouth 0 ( Alternate 24 hr every morning therap y) tabletIndications: and evening. Syncope, unspecified syncope type, Ventricular tachycardia, Intercostal pain, Essential hypertension documented as of this encounter (statuses as of 11/13/2019) Active Problems Problem Noted Date Syncope 10/29/2019 PVT (paroxysmal ventricular tachycardia) 10/29/2019 Digoxin toxicity 10/29/2019 Atrial fibrillation 10/29/2019 Dyspnea 08/25/2019 Seizure disorder 08/25/2019 Stroke 06/15/2019 Mitral valve regurgitation 04/29/2019 Excessive anticoagulation 04/29/2019 Deep vein thrombosis of lower extremity 04/29/2019 Anxiety disorder 04/29/2019 Asthma 04/29/2019 E44.0 Moderate protein calorie malnutrition 02/06/2019 Dysphagia 08/03/2018 Iron deficiency anemia, unspecified iron deficiency an emia type 07/13/2018 Overview: Added automatically from request for yara arslan [id number] Abdominal pain, unspecified abdominal location 018 Overview: Added automatically from request for yara arslan [id number] Nausea and vomiting, intractability of vomiting not sp ecified, unspecified 07/13/2018 vomiting type Overview: Added automatically from request for yara arslan [id number] Chest pain 04/27/2018 Essential hypertension 04/27/2018 Pacemaker 04/27/2018 PAF (paroxysmal atrial fibrillation) 04/27/2018 History of cardiac pacemaker in situ 08/23/2017 Tachycardia, unspecified 06/22/2017 Elevated liver enzymes 07/23/2014 Pseudoseizure 04/15/2014 Left sided numbness 03/22/2014 Prediabetes 09/24/2013 Loss of weight 09/24/2013 Hypothyroidism 09/24/2013 Overview: ICD10 Diagnosis 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 Hypoglycemia 08/21/2013 Overview: ICD10 Diagnosis 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 documented as of this encounter (statuses as of 11/13/2019) Resolved Problems Problem Noted Date Resolved Date Metabolic syndrome X 07/23/2014 07/23/2014 documented as of this encounter (statuses as of 11/13/2019) Immunizations Name Administration Dates Next Due Pneumococcal Polysaccharide, PPSV23 (PNEUMOVAX) 06/23/2017 documented as of this encounter Social History Tobacco Use Types Packs/Day Years Used Date Former Smoker 0.3 2 Quit: 05/09/20 03 Smokeless Tobacco: Never Used Qu it: 08/20/2010 Comments: quit 16 years ago Alcohol Use Drinks/Week oz/Week Comments No Financial Resource Strain Answer Date Recorded How hard is it for you to pay for the very basics like Not h oliva at all 10/28/2019 food, housing, medical care, and heating? Food Insecurity Answer Date Recorded Within the past 12 months, you worried that your food would Never true 10/28/2019 run out before you got money to buy more. Within the past 12 months, the food you bought just didn't N ever true 10/28/2019 last and you didn't have money to get more. Transportation Needs Answer Date Recorded In the past 12 months, has lack of transportation kept you f rom No 10/28/2019 medical appointments or from getting medications? In the past 12 months, has lack of transportation kept you f rom No 10/28/2019 meetings, work, or getting things [...] Visit Cardiology Gucci Joshi MD [address] [place], [place] [address] 12/10/2019 Office Visit Cardiology Navi Hines MD [address] [place] [phone] Health Maintenance Due Date Last Done Comments VARICELLA VACCINES (1 of 2 - 2-dose childhood series) 1982 DTaP,Tdap,and Td Vaccines (1 - Tdap) 1992 PAP SMEAR 06/21/2007 06/21/2004 INFLUENZA VACCINE (#1) 2019 PNEUMOCOCCAL 0-64 YEARS COMBINED SERIES Completed 06/23/20 17 documented as of this encounter Implants Implanted Type Area Executive Pastry Chef Device Identifier Shelf Exp iration Model / Serial Date / Lot Pacemaker documented as of this encounter Results Not on filedocumented in this encounter Insurance Payer Benefit Plan / Subscriber ID Effective Phone Address T e Group Dates LYNDSEY SOLORIO xxxxxxxxx 2011-Kobe PERALTA [facility] [place] [phone] MANAGED MED[place]ID [place] documented as of this encounter
--- OUTSIDE RECORDS SUMMARY | 2020-02-10 15:26 | XMS REPORT | Summary of Care ---
:1980 Author Organization [facility] Address [address] [place] [address] Care Team Providers Name Role Phone Diya Mora MD Primary Care Provider Lila Reyes Insurance Hmo Encounter Details Date Type Department Care Team Description 11/16/2019 Orders Only [facility] Doctor Unassigned, No [address] [facility] [place] [address] [address] [place] [address] Allergies Active Allergy Reactions Severity Noted Date [...] as of this encounter (statuses as of 11/16/2019) Medications Medication Sig Dispensed Refills Start Date End Date Status loratadine (CLARITIN) as needed. 0 06/05/2013 Active 10 mg tablet ALBUTEROL SULFATE Inhale. 0 Ac tive (PROAIR HFA INHALE) albuterol (ACCUNEB) Use 1 [...] tablet TK 1 T PO BID 1 06/19/2017 Active busPIRone 15 mg tablet TK [...] Sodium Apply to 100 g 0 11/07/2019 A ctive (VOLTAREN) 1 % area(s) 2 (two) gelIndications: Chest times daily as pain, unspecified type, needed for Pain Cervicalgia, Radicular (scale 4-6). pain in left arm documented as of this encounter (statuses as of 11/16/2019) Active Problems Problem Noted Date Syncope 10/29/2019 [...] Added automatically from request for yara arslan [id number] Abdominal pain, unspecified abdominal location 018 Overview: Added automatically from request for yara arslan [id number] Nausea and vomiting, intractability of vomiting not sp ecified, unspecified 07/13/2018 vomiting type Overview: Added automatically from request for yara arslan [id number] Chest pain 04/27/2018 Essential hypertension 04/27/2018 Pacemaker 04/27/2018 PAF (paroxysmal atrial fibrillation) 04/27/2018 History of cardiac pacemaker in situ 08/23/2017 Tachycardia, unspecified 06/22/2017 Elevated liver enzymes 07/23/2014 Pseudoseizure 04/15/2014 Left sided numbness 03/22/2014 Prediabetes 09/24/2013 Loss of weight 09/24/2013 Hypothyroidism 09/24/2013 Overview: ICD10 Diagnosis 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 Cable Rigger Utility Hypoglycemia 08/21/2013 Overview: ICD10 Diagnosis Term Cable Rigger Utility documented as of this encounter (statuses as of 11/16/2019) Resolved Problems Problem Noted Date Resolved Date Metabolic syndrome X 07/23/2014 07/23/2014 documented as of this encounter (statuses as of 11/16/2019) Immunizations Name Administration Dates Next Due Pneumococcal [...] Visit Cardiology Gucci Joshi MD [address] [place], [place] [address] 12/10/2019 Office Visit Cardiology Navi Hines MD [address] [place] [address] [place], [place] [phone] Health Maintenance Due Date Last Done Comments VARICELLA VACCINES (1 of 2 - 2-dose childhood series) 1982 DTaP,Tdap,and Td Vaccines (1 - Tdap) 1992 PAP SMEAR 06/21/2007 06/21/2004 INFLUENZA VACCINE (#1) 2019 PNEUMOCOCCAL 0-64 YEARS COMBINED SERIES Completed 06/23/20 17 documented as of this encounter Implants Implanted Type Area Perfect Binder Operator Device Identifier Shelf Exp iration Model / Serial Date / Lot Pacemaker documented as of this encounter Procedures Procedure Name Priority Date/Time Associated Diagnosis Comme nts CONSENT/REFUSAL FOR Routine 11/16/2019 5:28 PM BUILDING DISMANTLER DIAGNOSIS AND TREATMENT documented in this encounter Results Not on filedocumented in this encounter Insurance Payer Benefit Plan / Subscriber ID Effective Phone Address T ype Group Dates LYNDSEY SOLORIO xxxxxxxxx 2011-Kobe [place] [address] [facility] [place] [phone] MANAGED MED[place]ID [place] documented as of this encounter
--- OUTSIDE RECORDS SUMMARY | 2020-02-10 15:26 | XMS REPORT | Summary of Care ---
:1980 Author Organization [facility] Address [address] [place] [address] Care Team Providers Name Role Phone Diya Mora MD Primary Care Provider Lila Reyes Insurance Hmo Reason for Referral Radiology Services (STAT) Status Reason Specialty Diagnoses / Referred By Referred To Procedures Contact Contact New Request Diagnostic Diagnoses Fall, initial encounter Ibikunle, Radiology Procedures XR HAND <3 VW LEFT Folusho F, RADIOLOGIC THERAPIST [address] [place] [phone] Radiology Services (STAT) Status Reason Specialty Diagnoses / Referred By Referred To Procedures Contact Contact New Request Diagnostic Diagnoses Fall, initial encounter Ibikunle, Radiology Procedures XR WRIST 3+ VW LEFT Folusho F, RADIOLOGIC THERAPIST [address] [place] [phone] Radiology Services (STAT) Status Reason Specialty Diagnoses / Referred By Referred To Procedures Contact Contact New Request Diagnostic Diagnoses Fall, initial encounter Ibikunle, Radiology Procedures XR FOREARM 2 VW LEFT Folusho F, RADIOLOGIC THERAPIST [address] [place] [phone] Radiology Services (STAT) Status Reason Specialty Diagnoses / Referred By Referred To Procedures Contact Contact New Request Diagnostic Diagnoses Fall, initial encounter Ibikunle, Radiology Procedures XR ELBOW <3 VW LEFT Folusho F, RADIOLOGIC THERAPIST [address] [place] [address] Radiology Services (STAT) Status Reason Specialty Diagnoses / Referred By Referred To Procedures Contact Contact New Request Diagnostic Diagnoses Fall, initial encounter Ibikunle, Radiology Procedures XR HUMERUS 2 VW LEFT Folusho F, RADIOLOGIC THERAPIST [address] [place] [address] Radiology Services (STAT) Status Reason Specialty Diagnoses / Referred By Referred To Procedures Contact Contact New Request Diagnostic Diagnoses Fall, initial encounter Ibikunle, Radiology Procedures XR SHOULDER 2+ VW LEFT Folusho F, RADIOLOGIC THERAPIST [address] [place] [address] Reason for Visit Reason Comments Arm Pain left Auth/Cert Status Reason Specialty Diagnoses / Referred By Referred To Procedures Contact Contact Emergency Medicine [facility] Em ergency Dept [address] [facility] [place] [address] Fax: Encounter Details Date Type Department Care Team Description 11/16/2019 Emergency ADC-Emergency Ibikunle, Stuarto Fall, ini tial encounter (Primary Dx); Department F, RADIOLOGIC THERAPIST Left arm pain [address] [place] [address] [address] [place] [address] Allergies Active Allergy Reactions Severity Noted Date [...] Added automatically from request for yara arslan [id number] Abdominal pain, unspecified abdominal location 018 Overview: Added automatically from request for yara arslan [id number] Nausea and vomiting, intractability of vomiting not sp ecified, unspecified 07/13/2018 vomiting type Overview: Added automatically from request for yara arslan [id number] Chest pain 04/27/2018 Essential hypertension 04/27/2018 Pacemaker 04/27/2018 PAF (paroxysmal atrial fibrillation) 04/27/2018 History of cardiac pacemaker in situ 08/23/2017 Tachycardia, unspecified 06/22/2017 Elevated liver enzymes 07/23/2014 Pseudoseizure 04/15/2014 Left sided numbness 03/22/2014 Prediabetes 09/24/2013 Loss of weight 09/24/2013 Hypothyroidism 09/24/2013 Overview: ICD10 Diagnosis Term Account Developer Utility Hypoglycemia 08/21/2013 Overview: ICD10 Diagnosis Term Account Developer Utility documented as of this encounter (statuses [...] Sign Reading Time Taken Comments Blood Pressure 131/74 11/16/2019 5:36 PM DIRECTOR ADULT Pulse 100 11/16/2019 5:36 PM DIRECTOR ADULT Temperature 37 C (98.6 F) 11/16/2019 5:36 PM DIRECTOR ADULT Respiratory Rate 14 11/16/2019 5:36 PM DIRECTOR ADULT Oxygen Saturation 100% 11/16/2019 5:36 PM DIRECTOR ADULT Inhaled Oxygen Concentration - - Weight 49.4 kg (109 lb) 11/16/2019 5:36 PM DIRECTOR ADULT Height 149.9 cm (4' 11") 11/16/2019 5:36 PM DIRECTOR ADULT Body Mass Index 22.02 11/16/2019 5:36 PM DIRECTOR ADULT documented in this encounter Discharge Instructions Apple Jo FNP - 11/16/2019 You were seen today for Chief Complaint Patient presents with Arm Pain left Your ER diagnosis was ICD-10-CM ICD-9-CM 1. Fall, initial encounter W19.XXXA E888.9 2. Left arm pain M79.602 729.5 NO LIFE-THREATENING FINDINGS ON TODAY'S EXAM. YOUR PRESCRIPTIONS : Medication List ASK your doctor about these medications * ABILIFY 10 mg tablet Generic drug: ARIPiprazole * ABILIFY 5 mg tablet Generic drug: ARIPiprazole acetaminophen-codeine 300-30 mg tablet Commonly known as: TYLENOL-CODEINE #3 Take 1 tablet by mouth every 4 (four) hours as needed for Pain (scale 1-3). atorvastatin 10 mg tablet Commonly known as: LIPITOR benztropine 1 mg tablet Commonly known as: COGENTIN blood sugar diagnostic strip Commonly known as: TRUETEST TEST STRIPS Use as directed. R 73.03. Check once daily BREO ELLIPTA 100-25 mcg/dose Dsdv Generic drug: fluticasone furoate-vilanterol busPIRone 15 mg tablet Commonly known as: BUSPAR carvediloL 25 mg tablet Commonly known as: COREG TAKE 1 TABLET BY MOUTH TWICE DAILY WITH MEALS cyclobenzaprine 5 mg tablet Commonly known as: FLEXERIL Take 1 tablet by mouth 3 (three) times daily as needed for Muscle Spasms. DALIRESP 500 mcg tablet Generic drug: roflumilast Diclofenac Sodium 1 % gel Commonly known as: VOLTAREN Apply to area(s) 2 (two) times daily as needed for Pain (scale 4-6). ELIQUIS 5 mg tablet Generic drug: apixaban TAKE 1 TABLET BY MOUTH TWICE DAILY lancets 33 gauge Misc Commonly known as: TRUEPLUS LANCETS Use as directed. R 73.03, Check once daily levETIRAcetam 500 mg tablet Commonly known as: KEPPRA Take 2 tablets by mouth 2 (two) times daily. Levothyroxine 150 mcg capsule Commonly known as: TIROSINT loratadine 10 mg tablet Commonly known as: CLARITIN LYRICA 25 mg capsule Generic drug: pregabalin pantoprazole 40 mg EC tablet Commonly known as: PROTONIX Take 1 tablet by mouth daily. * PROAIR HFA INHALE * albuterol 1.25 mg/3 mL nebulizer solution Commonly known as: ACCUNEB sucralfate 100 mg/mL suspension Commonly known as: CARAFATE Take 10 mL by mouth before meals and at bedtime. tiotropium 18 mcg inhalation Commonly known as: SPIRIVA topiramate 100 mg tablet Commonly known as: TOPAMAX venlafaxine XR 150 mg 24 hr capsule Commonly known as: EFFEXOR XR XANAX 0.25 mg tablet Generic drug: ALPRAZolam * This list has 4 medication(s) that are the same as other medications prescribed for you. Read thedirections carefully, and ask your doctor or other care provider to review them with you. ER precautions and follow up : 1. Return to ER if your symptoms should worsen or fail to improve within 72 hours. 2. The care provided in the emergency room was for acute problems only. 3. You should follow up with your primary care provider within 72 hours. 4. Fill and take all your medications as prescribed. 5. Make sure you are staying adequately hydrated. Busque attencion immediatamente si usted tiene los sitomas sigue, vuelve peor o si hay sitomas nuevas o para cualquiera preoccupacion incluyendo dolor del pecho, falta aire, se siente debile, mas fievre, mas dolor, nausea, vomitando, sangrando que no es normal, confusion, baja or pierdas conciencia. FOLLOW-UP RECOMMENDATIONS: RECOMMEND FOLLOW-UP WITH A PRIMARY CARE PROVIDER OR SPECIALIST IN 2-5 DAYS, ESPECIALLY IF NO IMPROVEMENT IN SYMPTOMS. MAY FOLLOW-UP WITH A PROVIDER OF YOUR CHOICE, SUCH : 1. A PHYSICIAN OF YOUR CHOICE 2. [facility], . LOCATIONS IN [facility] 3. [facility], [address] [place] [address]; [phone] OR, IF YOU WISH TO FOLLOW-UP WITHIN THE [facility], MAY TRY THESE OPTIONS (CLINIC APPOINTMENTS AVAILABLE ON [id number] BASIS): 1. SCHEDULE AN APPOINTMENT ONLINE AT WWW[facility] 2. OR CALL THE [facility] AT OR 3. OR CALL YOUR [facility] PHYSICIAN'S OFFICE DIRECTLY IF YOU ARE ALREADY AN ESTABLISHED [facility] PATIENT. AttachmentsThe following attachments cannot be sent through Care Everywhere. Strains and Sprains, Treating ([place])documented in this encounter Plan of Treatment Date Type Specialty Care Team Description 11/22/2019 Nurse Visit Cardiology Visit, Adc Nurse 11/26/2019 Office Visit Cardiology Gucci Joshi MD [address] [place], [place] [address] 12/10/2019 Office Visit Cardiology Navi Hines MD [address] [place], [place] [address] Health Maintenance Due Date Last Done Comments VARICELLA VACCINES (1 of 2 - 2-dose childhood series) 1982 DTaP,Tdap,and Td Vaccines (1 - Tdap) 1992 PAP SMEAR 06/21/2007 06/21/2004 INFLUENZA VACCINE (#1) 2019 PNEUMOCOCCAL 0-64 YEARS COMBINED SERIES Completed 06/23/20 17 documented as of this encounter Implants Implanted Type Area [employer] Technology Department Chair Device Identifier Shelf Exp iration Model / Serial Date / Lot Pacemaker documented as of this encounter Procedures Procedure Name Priority Date/Time Associated Diagnosis Comme nts XR WRIST 3+ VW LEFT STAT 11/16/2019 6:27 PM Fall, initial Results for this DIRECTOR ADULT encounter procedure are i n the results section. XR SHOULDER 2+ VW STAT 11/16/2019 6:27 PM Fall, initial Re sults for this LEFT DIRECTOR ADULT encounter procedure are i n the results section. XR HUMERUS 2 VW STAT 11/16/2019 6:27 PM Fall, initial Resu lts for this LEFT DIRECTOR ADULT encounter procedure are i n the results section. XR HAND <3 VW LEFT STAT 11/16/2019 6:27 PM Fall, initial R esults for this DIRECTOR ADULT encounter procedure are i n the results section. XR FOREARM 2 VW STAT 11/16/2019 6:27 PM Fall, initial Resu lts for this LEFT DIRECTOR ADULT encounter procedure are i n the results section. XR ELBOW <3 VW LEFT STAT 11/16/2019 6:27 PM Fall, initial Results for this DIRECTOR ADULT encounter procedure are i n the results section. documented in this encounter Results XR HAND <3 VW LEFT (11/16/2019 6:27 PM DIRECTOR ADULT) Specimen Impressions Performed At 1. No acute fracture subluxation left el bow. PACS/VR/DOSE 2. No acute fracture left forearm. 3. No acute fracture left hand. 4. No acute fracture left humerus. 5. No acute fracture left wrist. RL: [id number] AF: [id number] Findings: IMPRESSION: END OF REPORT P M Narrative Performed At Ordering Physician: APPLE BURGESS PACS/VR/DOSE Clinical Indication: left wrist pain , f all injury Additional Clinical Information: Comparison: None Technique: 2 views left elbow, 3 views left wrist, 2 views left humerus, 3 views of left hand and 2 views left fore arm Findings: In the shoulder, there is no a cute fracture dislocation. There are incidental granulomatous or other de nsities overlying the chest partially imaged. In the left wrist, there is normal alignment of carpal bones. There is no acute fracture. The pronator fat pad is not displaced. In the left humerus, there is normal bone mineralizati on. There is no acute fracture. In the left hand, the joint spaces are normal. There i s no acute fracture or subluxation. In the left forearm, there is no acute f racture. There is normal bone mineralization. There is no subluxation in the elbow. In the elbow, there are anterior and posterior fat pad s are not displaced. There is no acute fracture or subluxatio n. Procedure Note [facility], Radiant Results Inft User - 2019 6:48 PM DIRECTOR ADULT Ordering Physician: APPLE BURGESS Clinical Indication: left wrist pain , f all injury Additional Clinical Information: Comparison: None Technique: 2 views left elbow, 3 views left wrist, 2 views left humerus, 3 views of left hand and 2 views left fore arm Findings: In the shoulder, there is no a cute fracture dislocation. There are incidental granulomatous or other de nsities overlying the chest partially imaged. In the left wrist, there is normal align ment of carpal bones. There is no acute fracture. The pronator fat pad is not displaced. In the left humerus, there is normal bon e mineralization. There is no acute fracture. In the left hand, the joint spaces are n ormal. There is no acute fracture or subluxation. In the left forearm, there is no acute f racture. There is normal bone mineralization. There is no subluxation in the elbow. In the elbow, there are anterior and pos terior fat pads are not displaced. There is no acute fracture or subluxatio n. IMPRESSION 1. No acute fracture subluxation left el bow. 2. No acute fracture left forearm. 3. No acute fracture left hand. 4. No acute fracture left humerus. 5. No acute fracture left wrist. RL: [id number] AFC: [id number] Findings: IMPRESSION: END OF REPORT Electronically signed by Adolfo Pierre at 6:46 PM Performing Organization Address City/State/Zipcode Phone Number PACS/VR/DOSE XR WRIST 3+ VW LEFT (11/16/2019 6:27 PM DIRECTOR ADULT) Specimen Impressions Performed At 1. No acute fracture subluxation left el bow. PACS/VR/DOSE 2. No acute fracture left forearm. 3. No acute fracture left hand. 4. No acute fracture left humerus. 5. No acute fracture left wrist. RL: [id number] AFC: [id number] Findings: IMPRESSION: END OF REPORT P M Narrative Performed At Ordering Physician: APPLE BURGESS PACS/VR/DOSE Clinical Indication: left wrist pain , f all injury Additional Clinical Information: Comparison: None Technique: 2 views left elbow, 3 views left wrist, 2 views left humerus, 3 views of left hand and 2 views left fore arm Findings: In the shoulder, there is no a cute fracture dislocation. There are incidental granulomatous or other de nsities overlying the chest partially imaged. In the left wrist, there is normal alignment of carpal bones. There is no acute fracture. The pronator fat pad is not displaced. In the left humerus, there is normal bone mineralizati on. There is no acute fracture. In the left hand, the joint spaces are normal. There i s no acute fracture or subluxation. In the left forearm, there is no acute f racture. There is normal bone mineralization. There is no subluxation in the elbow. In the elbow, there are anterior and posterior fat pad s are not displaced. There is no acute fracture or subluxatio n. Procedure Note [facility], Radiant Results Inft User - 2019 6:48 PM DIRECTOR ADULT Ordering Physician: APPLE BURGESS Clinical Indication: left wrist pain , f all injury Additional Clinical Information: Comparison: None Technique: 2 views left elbow, 3 views left wrist, 2 views left humerus, 3 views of left hand and 2 views left fore arm Findings: In the shoulder, there is no a cute fracture dislocation. There are incidental granulomatous or other de nsities overlying the chest partially imaged. In the left wrist, there is normal align ment of carpal bones. There is no acute fracture. The pronator fat pad is not displaced. In the left humerus, there is normal bon e mineralization. There is no acute fracture. In the left hand, the joint spaces are n ormal. There is no acute fracture or subluxation. In the left forearm, there is no acute f racture. There is normal bone mineralization. There is no subluxation in the elbow. In the elbow, there are anterior and pos terior fat pads are not displaced. There is no acute fracture or subluxatio n. IMPRESSION 1. No acute fracture subluxation left el bow. 2. No acute fracture left forearm. 3. No acute fracture left hand. 4. No acute fracture left humerus. 5. No acute fracture left wrist. RL: [id number] AFC: [id number] Findings: IMPRESSION: END OF REPORT Electronically signed by Adolfo Pierre at 6:46 PM Performing Organization Address City/State/Zipcode Phone Number PACS/VR/DOSE XR FOREARM 2 VW LEFT (11/16/2019 6:27 PM DIRECTOR ADULT) Specimen Impressions Performed At 1. No acute fracture subluxation left el bow. PACS/VR/DOSE 2. No acute fracture left forearm. 3. No acute fracture left hand. 4. No acute fracture left humerus. 5. No acute fracture left wrist. RL: [id number] AFC: [id number] Findings: IMPRESSION: END OF REPORT P M Narrative Performed At Ordering Physician: APPLE BURGESS PACS/VR/DOSE Clinical Indication: left wrist pain , f all injury Additional Clinical Information: Comparison: None Technique: 2 views left elbow, 3 views left wrist, 2 views left humerus, 3 views of left hand and 2 views left fore arm Findings: In the shoulder, there is no a cute fracture dislocation. There are incidental granulomatous or other de nsities overlying the chest partially imaged. In the left wrist, there is normal alignment of carpal bones. There is no acute fracture. The pronator fat pad is not displaced. In the left humerus, there is normal bone mineralizati on. There is no acute fracture. In the left hand, the joint spaces are normal. There i s no acute fracture or subluxation. In the left forearm, there is no acute f racture. There is normal bone mineralization. There is no subluxation in the elbow. In the elbow, there are anterior and posterior fat pad s are not displaced. There is no acute fracture or subluxatio n. Procedure Note [facility], Radiant Results Inft User - 2019 6:48 PM DIRECTOR ADULT Ordering Physician: APPLE BURGESS Clinical Indication: left wrist pain , f all injury Additional Clinical Information: Comparison: None Technique: 2 views left elbow, 3 views left wrist, 2 views left humerus, 3 views of left hand and 2 views left fore arm Findings: In the shoulder, there is no a cute fracture dislocation. There are incidental granulomatous or other de nsities overlying the chest partially imaged. In the left wrist, there is normal align ment of carpal bones. There is no acute fracture. The pronator fat pad is not displaced. In the left humerus, there is normal bon e mineralization. There is no acute fracture. In the left hand, the joint spaces are n ormal. There is no acute fracture or subluxation. In the left forearm, there is no acute f racture. There is normal bone mineralization. There is no subluxation in the elbow. In the elbow, there are anterior and pos terior fat pads are not displaced. There is no acute fracture or subluxatio n. IMPRESSION 1. No acute fracture subluxation left el bow. 2. No acute fracture left forearm. 3. No acute fracture left hand. 4. No acute fracture left humerus. 5. No acute fracture left wrist. RL: [id number] AFC: [id number] Findings: IMPRESSION: END OF REPORT Electronically signed by Adolfo Pierre at 6:46 PM Performing Organization Address City/State/Zipcode Phone Number PACS/VR/DOSE XR ELBOW <3 VW LEFT (11/16/2019 6:27 PM DIRECTOR ADULT) Specimen Impressions Performed At 1. No acute fracture subluxation left el bow. PACS/VR/DOSE 2. No acute fracture left forearm. 3. No acute fracture left hand. 4. No acute fracture left humerus. 5. No acute fracture left wrist. RL: [id number] AF: [id number] Findings: IMPRESSION: END OF REPORT P M Narrative Performed At Ordering Physician: APPLE BURGESS PACS/VR/DOSE Clinical Indication: left wrist pain , f all injury Additional Clinical Information: Comparison: None Technique: 2 views left elbow, 3 views left wrist, 2 views left humerus, 3 views of left hand and 2 views left fore arm Findings: In the shoulder, there is no a cute fracture dislocation. There are incidental granulomatous or other de nsities overlying the chest partially imaged. In the left wrist, there is normal alignment of carpal bones. There is no acute fracture. The pronator fat pad is not displaced. In the left humerus, there is normal bone mineralizati on. There is no acute fracture. In the left hand, the joint spaces are normal. There i s no acute fracture or subluxation. In the left forearm, there is no acute f racture. There is normal bone mineralization. There is no subluxation in the elbow. In the elbow, there are anterior and posterior fat pad s are not displaced. There is no acute fracture or subluxatio n. Procedure Note [facility], Radiant Results Inft User - 2019 6:48 PM DIRECTOR ADULT Ordering Physician: APPLE BURGESS Clinical Indication: left wrist pain , f all injury Additional Clinical Information: Comparison: None Technique: 2 views left elbow, 3 views left wrist, 2 views left humerus, 3 views of left hand and 2 views left fore arm Findings: In the shoulder, there is no a cute fracture dislocation. There are incidental granulomatous or other de nsities overlying the chest partially imaged. In the left wrist, there is normal align ment of carpal bones. There is no acute fracture. The pronator fat pad is not displaced. In the left humerus, there is normal bon e mineralization. There is no acute fracture. In the left hand, the joint spaces are n ormal. There is no acute fracture or subluxation. In the left forearm, there is no acute f racture. There is normal bone mineralization. There is no subluxation in the elbow. In the elbow, there are anterior and pos terior fat pads are not displaced. There is no acute fracture or subluxatio n. IMPRESSION 1. No acute fracture subluxation left el bow. 2. No acute fracture left forearm. 3. No acute fracture left hand. 4. No acute fracture left humerus. 5. No acute fracture left wrist. RL: [id number] AFC: [id number] Findings: IMPRESSION: END OF REPORT Electronically signed by Adolfo Pierre at 6:46 PM Performing Organization Address City/State/Zipcode Phone Number PACS/VR/DOSE XR HUMERUS 2 VW LEFT (11/16/2019 6:27 PM DIRECTOR ADULT) Specimen Impressions Performed At 1. No acute fracture subluxation left el bow. PACS/VR/DOSE 2. No acute fracture left forearm. 3. No acute fracture left hand. 4. No acute fracture left humerus. 5. No acute fracture left wrist. RL: [id number] AFC: [id number] Findings: IMPRESSION: END OF REPORT P M Narrative Performed At Ordering Physician: APPLE BURGESS PACS/VR/DOSE Clinical Indication: left wrist pain , f all injury Additional Clinical Information: Comparison: None Technique: 2 views left elbow, 3 views left wrist, 2 views left humerus, 3 views of left hand and 2 views left fore arm Findings: In the shoulder, there is no a cute fracture dislocation. There are incidental granulomatous or other de nsities overlying the chest partially imaged. In the left wrist, there is normal alignment of carpal bones. There is no acute fracture. The pronator fat pad is not displaced. In the left humerus, there is normal bone mineralizati on. There is no acute fracture. In the left hand, the joint spaces are normal. There i s no acute fracture or subluxation. In the left forearm, there is no acute f racture. There is normal bone mineralization. There is no subluxation in the elbow. In the elbow, there are anterior and posterior fat pad s are not displaced. There is no acute fracture or subluxatio n. Procedure Note [facility], Radiant Results Inft User - 2019 6:48 PM DIRECTOR ADULT Ordering Physician: APPLE BURGESS Clinical Indication: left wrist pain , f all injury Additional Clinical Information: Comparison: None Technique: 2 views left elbow, 3 views left wrist, 2 views left humerus, 3 views of left hand and 2 views left fore arm Findings: In the shoulder, there is no a cute fracture dislocation. There are incidental granulomatous or other de nsities overlying the chest partially imaged. In the left wrist, there is normal align ment of carpal bones. There is no acute fracture. The pronator fat pad is not displaced. In the left humerus, there is normal bon e mineralization. There is no acute fracture. In the left hand, the joint spaces are n ormal. There is no acute fracture or subluxation. In the left forearm, there is no acute f racture. There is normal bone mineralization. There is no subluxation in the elbow. In the elbow, there are anterior and pos terior fat pads are not displaced. There is no acute fracture or subluxatio n. IMPRESSION 1. No acute fracture subluxation left el bow. 2. No acute fracture left forearm. 3. No acute fracture left hand. 4. No acute fracture left humerus. 5. No acute fracture left wrist. RL: [id number] AFC: [id number] Findings: IMPRESSION: END OF REPORT Electronically signed by Adolfo Pierre at 6:46 PM Performing Organization Address City/State/Zipcode Phone Number PACS/VR/DOSE XR SHOULDER 2+ VW LEFT (11/16/2019 6:27 PM DIRECTOR ADULT) Specimen Impressions Performed At 1. No acute fracture subluxation left el bow. PACS/VR/DOSE 2. No acute fracture left forearm. 3. No acute fracture left hand. 4. No acute fracture left humerus. 5. No acute fracture left wrist. 6. No acute fracture or dislocation of t he left shoulder. RL: [id number] AFC: [id number] END OF REPORT P M Narrative Performed At Ordering Physician: APPLE BURGESS PACS/VR/DOSE Clinical Indication: fall Additional Clinical Information: Comparison: None Technique: 2 views the left shoulder, 2 views left elbow, 3 views left wrist, 2 views left humerus, 3 views of left hand and 2 views left forearm Findings: In the shoulder, there is no a cute fracture dislocation. There are incidental granulomatous or other de nsities overlying the chest partially imaged. In the left wrist, there is normal alignment of carpal bones. There is no acute fracture. The pronator fat pad is not displaced. In the left humerus, there is normal bone mineralizati on. There is no acute fracture. In the left hand, the joint spaces are normal. There i s no acute fracture or subluxation. In the left forearm, there is no acute f racture. There is normal bone mineralization. There is no subluxation in the elbow. In the elbow, there are anterior and posterior fat pad s are not displaced. There is no acute fracture or subluxatio n. Procedure Note [facility], Radiant Results Inft User - 2019 6:35 PM DIRECTOR ADULT Ordering Physician: APPLE BURGESS Clinical Indication: fall Additional Clinical Information: Comparison: None Technique: 2 views the left shoulder, 2 views left elbow, 3 views left wrist, 2 views left humerus, 3 views of left hand and 2 views left forearm Findings: In the shoulder, there is no a cute fracture dislocation. There are incidental granulomatous or other de nsities overlying the chest partially imaged. In the left wrist, there is normal align ment of carpal bones. There is no acute fracture. The pronator fat pad is not displaced. In the left humerus, there is normal bon e mineralization. There is no acute fracture. In the left hand, the joint spaces are n ormal. There is no acute fracture or subluxation. In the left forearm, there is no acute f racture. There is normal bone mineralization. There is no subluxation in the elbow. In the elbow, there are anterior and pos terior fat pads are not displaced. There is no acute fracture or subluxatio n. IMPRESSION 1. No acute fracture subluxation left el bow. 2. No acute fracture left forearm. 3. No acute fracture left hand. 4. No acute fracture left humerus. 5. No acute fracture left wrist. 6. No acute fracture or dislocation of t he left shoulder. RL: [id number] AF: [id number] END OF REPORT Electronically signed by Adolfo Pierre at 6:34 PM Performing Organization Address City/State/Zipcode Phone Number PACS/VR/DOSE documented in this encounter Visit Diagnoses Diagnosis Fall, initial encounter - Primary Left arm pain Pain in limb documented in this encounter Administered Medications Medication Order MAR Action Action Date Dose Rate Site acetaminophen (TYLENOL) tablet Given 11/16/2019 6:27 PM DIRECTOR ADULT 1,0 00 mg 1,000 mg 1,000 mg, Oral, ONCE, 1 dose, 11/16/19 at 1900, Routine dexamethasone (DECADRON PHOSPHATE) injection Given 6:26 PM DIRECTOR ADULT 10 mg 10 mg 10 mg, Oral, ONCE, 1 dose, 11/16/19 at 1900, Routine documented in this encounter Insurance Payer Benefit Plan / Subscriber ID Effective Phone Address T e Group Dates LYNDSEY SOLORIO xxxxxxxxx 2011-Kobe PERALTA Medic aid [facility] - [facility] [address] MANAGED MEDICAID [place], [place]ID [place] (Work) documented as of this encounter
--- OUTSIDE RECORDS SUMMARY | 2020-02-10 15:27 | XMS REPORT | Summary of Care ---
:1980 Author Organization [facility] Address [address] [place] [id number] Care Team Providers Name Role Phone Diya Mora MD Primary Care Provider Lila Reyes Insurance Hmo Reason for Referral (Routine) Status Reason Specialty Diagnoses / Referred By Referred To Procedures Contact Contact New Request Diagnoses SVT (supraventricular tachycardia) Enrrique Joshi Electrophysiology Lab Request for Service (Electrophysiology Use Only) MD Gucci [address] [place] [id number] Reason for Visit Reason Comments Follow-up Encounter Details Date Type Department Care Team Description 11/26/2019 Office Visit [facility] Madelyn SVT (suprav entricular Cardiology, [place] MD Gucci tachycardia) (Primary [place] [address] [place] [address] Dx) [address] [place], [place] [id number] [place] [phone] Allergies Active Allergy Reactions Severity Noted Date [...] as of this encounter (statuses as of 11/26/2019) Medications Medication Sig Dispensed Refills Start Date [...] as of this encounter (statuses as of 11/26/2019) Active Problems Problem Noted Date Syncope 10/29/2019 [...] Added automatically from request for yara arslan [id number] Abdominal pain, unspecified abdominal location 018 Overview: Added automatically from request for yara arslan [id number] Nausea and vomiting, intractability of vomiting not sp ecified, unspecified 07/13/2018 vomiting type Overview: Added automatically from request for yara arslan [id number] Chest pain 04/27/2018 Essential hypertension 04/27/2018 Pacemaker 04/27/2018 PAF (paroxysmal atrial fibrillation) 04/27/2018 History of cardiac pacemaker in situ 08/23/2017 Tachycardia, unspecified 06/22/2017 Elevated liver enzymes 07/23/2014 Pseudoseizure 04/15/2014 Left sided numbness 03/22/2014 Prediabetes 09/24/2013 Loss of weight 09/24/2013 Hypothyroidism 09/24/2013 Overview: ICD10 Diagnosis Term Heel Dipper Utility Hypoglycemia 08/21/2013 Overview: ICD10 Diagnosis Term Heel Dipper Utility documented as of this encounter (statuses as of 11/26/2019) Resolved Problems Problem Noted Date Resolved Date Metabolic syndrome X 07/23/2014 07/23/2014 documented as of this encounter (statuses as of 11/26/2019) Immunizations Name Administration Dates Next Due Pneumococcal [...] Sign Reading Time Taken Comments Blood Pressure 109/69 11/26/2019 10:32 AM TRIPE FINISHER Pulse 98 11/26/2019 10:32 AM TRIPE FINISHER Temperature - - Respiratory Rate - - Oxygen Saturation 97% 11/26/2019 10:32 AM TRIPE FINISHER Inhaled Oxygen Concentration - - Weight 51.3 kg (113 lb) 11/26/2019 10:32 AM TRIPE FINISHER Height 149.9 cm (4' 11") 11/26/2019 10:32 AM TRIPE FINISHER Body Mass Index 22.82 11/26/2019 10:32 AM TRIPE FINISHER documented in this encounter Progress Notes Gucci Joshi MD - 11/26/2019 11:20 AM CST Cardiac EP [facility] Note Reason for Evaluation / Chief Complaint: chest pains and palpitations Referring Provider: Dr. Hines HPI: Jenni Rivera is a 39 year old female with h/o atrial fibrillation, "mini strokes," syncope s/p ILR with pauses -> pacemaker implant by Dr. Parmar complicated by infection x 2 moved to right side, asthma/bronchitis, past tobacco use, palpitations, referred for second opinion. She was seen byDr. Sheehan for palpitations, and evaluation revealed sinus tachycardia. She stated that for 2019 she noticed sob, chest pains, and palpitations multiple times per month (not daily). She was admitted to [facility] for syncope, cp, sob, palpitations. She was given IV digoxin for abnormal heart rhythm labelled as "VT" and unfortunately developed digoxin toxicity. She was eventually given coreg and today states she still notes palpitations and fatigue. Past Medical History: Diagnosis Date A-fib Anemia [...] Seizure 1994 last epside was roughly in 2016 Sick sinus syndrome TIA (transient ischemic attack) Transaminitis Social History Socioeconomic History Marital status: Spouse name: Not on file Number of children: Not on file Years of education: Not on file Highest education level: Not on file Occupational History Not on file Social Needs Financial resource strain: Not hard at all Food insecurity: Worry: Never true Inability: Never true Transportation needs: Medical: No Non-medical: No Tobacco Use Smoking status: Former Smoker Packs/day: 0.30 Years: 2.00 Pack years: 0.60 Last attempt to quit: 05/09/2003 Years since quittin.5 Smokeless tobacco: Never Used Tobacco comment: quit [...] Current Outpatient Medications Medication Sig Dispense Refill cyclobenzaprine 5 mg tablet Take 1 tablet by mouth 3 (three) times daily as needed for Muscle Spasms. 12 tablet 0 ELIQUIS 5 mg tablet TAKE 1 TABLET BY MOUTH TWICE DAILY 180 tablet 1 pregabalin (LYRICA) 25 mg capsule Take 25 mg by mouth at bedtime. blood sugar diagnostic (TRUETEST TEST STRIPS) strip Use as directed. R 73.03. Check once daily 100 Strip 3 lancets (TRUEPLUS LANCETS) 33 gauge Misc Use as directed. R 73.03, Check once daily 100 Each 3 Diclofenac Sodium (VOLTAREN) 1 % gel Apply to area(s) 2 (two) times daily as needed for Pain (scale 4-6). 100 g 0 CARVEDILOL 25 mg tablet TAKE 1 TABLET BY MOUTH TWICE DAILY WITH MEALS 180 tablet 2 pantoprazole 40 mg EC tablet Take 1 tablet by mouth daily. 30 tablet 0 acetaminophen-codeine (TYLENOL-CODEINE #3) 300-30 mg tablet Take 1 tablet by mouth every 4 (four) hours as needed for Pain (scale 1-3). 30 tablet 0 sucralfate (CARAFATE) 100 mg/mL suspension Take 10 mL by mouth before meals and at bedtime. 1200mL 2 levETIRAcetam 500 mg tablet Take 2 tablets by mouth 2 (two) times daily. 120 tablet 6 atorvastatin 10 mg tablet Take 10 mg by mouth daily. 1 Levothyroxine 150 mcg capsule Take 150 mcg by mouth daily. ALPRAZolam (XANAX) 0.25 mg tablet Take 0.25 [...] loratadine (CLARITIN) 10 mg tablet as needed. No current facility-administered medications for this visit. Review of Systems: General: denies complaint Eyes: denies complaint Ears/Nose/Mouth/Throat: denies complaint Cardiovascular: as per hpi Respiratory: as per hpi Gastrointestinal: denies complaint Genital/urinary: denies complaint Musculoskeletal: joint pains Skin: denies complaint Neurologic: "mini strokes" with left sided weakness Psychiatric: denies complaint Endocrine: denies complaint Hematologic: denies complaint Allergy/Immunology: denies complaint Physical Exam: Vitals: Vitals: 11/26/19 1032 BP: 109/69 Pulse: 98 SpO2: 97% Weight: 113 lb (51.3 kg) Height: 4' 11" (1.499 m) Appearance: Well developed and well nourished [...] Value 03/24/2014 5.6 WBC (10*3/L) Date Value 11/06/2019 7.53 RBC x10^6 (/uL) Date Value 03/24/2014 4.51 RBC (10*6/L) Date Value 11/06/2019 4.66 PLT x10^3 (/uL) Date Value 03/24/2014 220 PLT (10*3/L) Date Value 11/06/2019 253 HGB Date Value 11/06/2019 13.3 g/dL 03/24/2014 13.0 G/DL HCT (%) Date Value 11/06/2019 40.2 03/24/2014 38.8 BMP NA Date Value 11/06/2019 139 mmol/L 03/24/2014 136 MMOL/L SODIUM-Q (mmol/L) Date Value 07/23/2014 145 K Date Value 11/06/2019 4.2 mmol/L 03/24/2014 4.2 MMOL/L POTASSIUM-Q (mmol/L) Date Value 07/23/2014 4.9 CALCIUM Date Value 11/06/2019 9.6 mg/dL 03/24/2014 9.3 MG/DL CALCIUM-Q (mg/dL) Date Value 07/23/2014 10.3 (H) CL Date Value 11/06/2019 104 mmol/L 03/24/2014 98 MMOL/L CHLORIDE-Q (mmol/L) Date Value 07/23/2014 105 BUN Date Value 11/06/2019 13 mg/dL 03/24/2014 20 MG/DL UREA NITROGEN (BUN)-Q (mg/dL) Date Value 07/23/2014 12 CREATININE Date Value 11/06/2019 0.50 mg/dL 03/24/2014 0.71 MG/DL CREATININE-Q (mg/dL) Date Value 07/23/2014 0.70 GLUCOSE Date Value 11/06/2019 106 mg/dL 03/24/2014 114 MG/DL (H) GLUCOSE-Q (mg/dL) Date Value 07/23/2014 93 CO2 TOTAL Date Value 11/06/2019 25 mmol/L 03/24/2014 30 MMOL/L CARBON DIOXIDE-Q (mmol/L) Date Value 07/23/2014 24 Hepatic Function Panel ALBUMIN Date Value 11/06/2019 4.8 g/dL 03/22/2014 4.1 G/DL ALBUMIN-Q (g/dL) Date Value 07/23/2014 4.8 T PROTEIN Date Value 11/06/2019 8.0 g/dL 03/22/2014 7.0 G/DL PROTEIN, TOTAL-Q (g/dL) Date Value 07/23/2014 7.7 TOTAL BILI Date Value 11/06/2019 0.3 mg/dL 03/22/2014 0.8 MG/DL BILIRUBIN, TOTAL-Q (mg/dL) Date Value 07/23/2014 0.3 BILI UNCON Date Value 09/28/2019 0.1 mg/dL 03/22/2014 0.4 MG/DL BILI CONJ Date Value 09/28/2019 0.0 mg/dL 03/22/2014 0.0 MG/DL ALT(SGPT) (U/L) Date Value 05/30/2019 26 03/22/2014 68 (H) ALT-Q (U/L) Date Value 07/23/2014 24 ALTv (U/L) Date Value 11/06/2019 24 AST(SGOT) (U/L) Date Value 11/06/2019 36 03/22/2014 59 (H) AST-Q (U/L) Date Value 07/23/2014 23 ALK PHOS (U/L) Date Value 11/06/2019 125 (H) 03/22/2014 107 ALKALINE PHOSPHATASE-Q (U/L) Date Value 07/23/2014 121 (H) PROTIME (SEC) Date Value 03/22/2014 13.2 PROTIME PATIENT (Seconds) Date Value 11/06/2019 11.0 TSH Date Value 10/28/2019 5.32 mIU/L (H) 12/01/2005 2.72 uIU/mL TSH, 3RD GENERATION-Q (mIU/L) Date Value 07/23/2014 4.25 EC11-06-2019: st at 118bpm; pr 126ms; qrs 80ms; qtc 454ms 10-08-2019: interpreted by me: narrow complex tachycardia at 102bpm; pr 138ms; qrs 82ms; qtc 432ms; Pwave in aVL atypical for sinus; however, all other lead suggest sinus origin. 09-28-2019: sinus tachycardia at 108 bpm; pr 126ms; qrs 88ms; qtc 452ms Telemetry/Holter/Loop Monitor: N/a Echocardiogram: : LA 2.3cm; LV 0.68cm thick; LVEF 55-60% : LA 2.1cm; LV 0.79cm thick; LVEF 55-60% Cardiac Cath: N/a Stress Testing: N/a Radiology/X-ray: : Cardiac CT: calcium score zero; no cad seen Cardiac Device Evaluation: Evaluation performed: Device: St. JudeDual lead Pacemaker. Model#: 2272 Mode: ddd 60-125 bpm Battery: 10 years Atrial Lead: < 1% pacing Sensin mV Impedance: 490 Ohms Threshold: 1 V @ 0.4 ms Right Ventricular Lead: < 1% pacing Sensin.4 mV Impedance: 430 Ohms Threshold: 1 V @ 0.4 ms Arrhythmias: + SVT 177bpm Impression: myriad of complaints including palpitations, cp, sob, fatigue, joint/back pains; however, device evaluation with SVT. Therapeutic options include medications vs ep study ablation. Informed consent was discussed with the patient, including: condition, proposed care, treatments and services, alternative options and forms of treatment, as well as risks of no treatment. Details werediscussed around the procedures/treatments to be used and the risks and hazards involved including but not limited to pain, bleeding, infection, damage to the heart, lung, and/or blood vessels requiring surgery, kidney failure, heart attack, stroke, or . We also discussed potential benefits and side effects of the patient's proposed treatment plan; the likelihood of the patient achieving their goals; and any potential problems that might occur during recuperation. They expressed understandingand would like to do ep study with possible ablation. Recommendation(s): 1. As above 2. Order placed for ep/ablation 3. ER warnings Thank you for allowing us to participate in the care of your patient. Please feel free to contact us for any questions or if we can be of further assistance. Gucci Joshi MD 11/26/2019 11:41 AM E FINISHER documented in this encounter Plan of Treatment Date Type Specialty Care Team Description 12/09/2019 Nurse Visit Cardiology Visit, Adc Nurse 12/10/2019 Office Visit Cardiology Navi Hines MD [address] [place] [phone] Health Maintenance Due Date Last Done Comments VARICELLA VACCINES (1 of 2 - 2-dose childhood series) 1982 DTaP,Tdap,and Td Vaccines (1 - Tdap) 1992 PAP SMEAR 06/21/2007 06/21/2004 INFLUENZA VACCINE (#1) 2019 PNEUMOCOCCAL 0-64 YEARS COMBINED SERIES Completed 06/23/20 17 documented as of this encounter Implants Implanted Type Area Ultra Sound Technician Device Identifier Shelf Exp iration Model / Serial Date / Lot Pacemaker documented as of this encounter Results Not on filedocumented in this encounter Visit Diagnoses Diagnosis SVT (supraventricular tachycardia) - Claudia davies Other specified cardiac dysrhythmias documented in this encounter Insurance Payer Benefit Plan / Subscriber ID Effective Phone Address T e Group Dates LYNDSEY SOLORIO xxxxxxxxx 2011-Kobe Amaro [address] [employer] [facility] [place] [address] MANAG[place] MEDICAID [place] (Work) documented as of this encounter
--- OUTSIDE RECORDS SUMMARY | 2020-02-10 15:27 | XMS REPORT | Summary of Care ---
:1980 Author Organization [facility] - [facility] Address [address] [place] [address] Care Team Providers Name Role Phone Diya Mora MD Primary Care Provider Lila Reyes Insurance Hmo Encounter Details Date Type Department Care Team Description 11/12/2019 Orders Only [facility] Doctor Unassigned, No [address] [facility] [place] [address] [address] [place] [address] Allergies Active Allergy Reactions Severity Noted Date [...] as of this encounter (statuses as of 11/19/2019) Medications Medication Sig Dispensed Refills Start Date [...] as of this encounter (statuses as of 11/19/2019) Active Problems Problem Noted Date Syncope 10/29/2019 [...] Added automatically from request for yara arslan [id number] Abdominal pain, unspecified abdominal location 018 Overview: Added automatically from request for yara arslan [id number] Nausea and vomiting, intractability of vomiting not sp ecified, unspecified 07/13/2018 vomiting type Overview: Added automatically from request for yara arslan [id number] Chest pain 04/27/2018 Essential hypertension 04/27/2018 Pacemaker 04/27/2018 PAF (paroxysmal atrial fibrillation) 04/27/2018 History of cardiac pacemaker in situ 08/23/2017 Tachycardia, unspecified 06/22/2017 Elevated liver enzymes 07/23/2014 Pseudoseizure 04/15/2014 Left sided numbness 03/22/2014 Prediabetes 09/24/2013 Loss of weight 09/24/2013 Hypothyroidism 09/24/2013 Overview: ICD10 Diagnosis Term Information Technology Account Manager Utility Hypoglycemia 08/21/2013 Overview: ICD10 Diagnosis Term Information Technology Account Manager Utility documented as of this encounter (statuses as of 11/19/2019) Resolved Problems Problem Noted Date Resolved Date Metabolic syndrome X 07/23/2014 07/23/2014 documented as of this encounter (statuses as of 11/19/2019) Immunizations Name Administration Dates Next Due Pneumococcal [...] Visit Cardiology Gucci Joshi MD [address] [place], [place] [address] 12/10/2019 Office Visit Cardiology Navi Hines MD [address] [place] [address] [place], [place] [phone] Health Maintenance Due Date Last Done Comments VARICELLA VACCINES (1 of 2 - 2-dose childhood series) 1982 DTaP,Tdap,and Td Vaccines (1 - Tdap) 1992 PAP SMEAR 06/21/2007 06/21/2004 INFLUENZA VACCINE (#1) 2019 PNEUMOCOCCAL 0-64 YEARS COMBINED SERIES Completed 06/23/20 17 documented as of this encounter Implants Implanted Type Area Armorer Technician Device Identifier Shelf Exp iration Model / Serial Date / Lot Pacemaker documented as of this encounter Procedures Procedure Name Priority Date/Time Associated Diagnosis Comme nts MEDICATION CORRESPONDENCE Routine 11/12/2019 12:01 AM WILL CALL ORDER CLERK documented in this encounter Results Not on filedocumented in this encounter Insurance Payer Benefit Plan / Subscriber ID Effective Phone Address T [facility] Group Dates LYNDSEY SOLORIO xxxxxxxxx 2011-Prese [address] [place] [facility] [place] [address] MANAGED MEDICAID [place] documented as of this encounter
--- OUTSIDE RECORDS SUMMARY | 2020-02-10 15:28 | XMS REPORT | Summary of Care ---
:1980 Author Organization [facility] Address [address] [place] [address] Care Team Providers Name Role Phone Diya Mora MD Primary Care Provider Lila Reyes Insurance Hmo Reason for Referral (Routine) Status Reason Specialty Diagnoses / Referred By Referred To Procedures Contact Contact New Request Diagnoses SVT (supraventricular tachycardia) Enrrique Joshi Electrophysiology Lab Request for Service (Electrophysiology Use Only) MD Gucci [address] [place] [address] Reason for Visit Reason Comments Follow-up Encounter Details Date Type Department Care Team Description 11/26/2019 Office Visit [facility] Madelyn SVT (suprav entricular Cardiology, [place] MD Gucci tachycardia) (Primary [place] [address] [place] [address] Dx) [address] [place], [place] [address] [place] [phone] Allergies Active Allergy Reactions Severity Noted Date [...] Added automatically from request for yara arslan [id number] Abdominal pain, unspecified abdominal location 018 Overview: Added automatically from request for yara arslan [id number] Nausea and vomiting, intractability of vomiting not sp ecified, unspecified 07/13/2018 vomiting type Overview: Added automatically from request for yara arslan [id number] Chest pain 04/27/2018 Essential hypertension 04/27/2018 Pacemaker 04/27/2018 PAF (paroxysmal atrial fibrillation) 04/27/2018 History of cardiac pacemaker in situ 08/23/2017 Tachycardia, unspecified 06/22/2017 Elevated liver enzymes 07/23/2014 Pseudoseizure 04/15/2014 Left sided numbness 03/22/2014 Prediabetes 09/24/2013 Loss of weight 09/24/2013 Hypothyroidism 09/24/2013 Overview: ICD10 Diagnosis Term Chronometer Repairer Utility Hypoglycemia 08/21/2013 Overview: ICD10 Diagnosis Term Chronometer Repairer Utility documented as of this encounter (statuses [...] Comments Blood Pressure 109/69 11/26/2019 10:32 AM HIGH ENERGY FORMING EQUIPMENT OPERATOR Pulse 98 11/26/2019 10:32 AM HIGH ENERGY FORMING EQUIPMENT OPERATOR Temperature - - Respiratory Rate - - Oxygen Saturation 97% 11/26/2019 10:32 AM HIGH ENERGY FORMING EQUIPMENT OPERATOR Inhaled Oxygen Concentration - - Weight 51.3 kg (113 lb) 11/26/2019 10:32 AM HIGH ENERGY FORMING EQUIPMENT OPERATOR Height 149.9 cm (4' 11") 11/26/2019 10:32 AM HIGH ENERGY FORMING EQUIPMENT OPERATOR Body Mass Index 22.82 11/26/2019 10:32 AM HIGH ENERGY FORMING EQUIPMENT OPERATOR documented in this encounter Progress Notes Gucci [...] month (not daily). She was admitted to [facility] for syncope, cp, sob, palpitations. She was [...] file Gets together: Not on file Attends congregation service: Not on file Active member of [...] assistance. Gucci Joshi MD 11/26/2019 11:41 AM ENERGY FORMING EQUIPMENT OPERATOR documented in this encounter Plan of Treatment Date Type Specialty Care Team Description 12/09/2019 Nurse Visit Cardiology Visit, Adc Nurse 12/10/2019 Office Visit Cardiology Navi Hines MD [address] [place] [address] [phone] Health Maintenance Due Date Last Done Comments VARICELLA VACCINES (1 of 2 - 2-dose childhood series) 1982 DTaP,Tdap,and Td Vaccines (1 - Tdap) 1992 PAP SMEAR 06/21/2007 06/21/2004 INFLUENZA VACCINE (#1) 2019 PNEUMOCOCCAL 0-64 YEARS COMBINED SERIES Completed 06/23/20 17 documented as of this encounter Implants Implanted Type Area Call Center Representative Device Identifier Shelf Exp iration Model / Serial Date / Lot Pacemaker documented as of this encounter Results Not on filedocumented in this encounter Visit Diagnoses Diagnosis SVT (supraventricular tachycardia) - Claudia davies Other specified cardiac dysrhythmias documented in this encounter Insurance Payer Benefit Plan / Subscriber ID Effective Phone Address T e Group Dates LYNDSEY SOLORIO xxxxxxxxx 2011-Kobe Amaro [address] [employer] [facility] [place] [address] MANAGED MEDICAID [place] (Work) documented as of this encounter
--- OUTSIDE RECORDS SUMMARY | 2020-02-10 15:28 | XMS REPORT | Summary of Care ---
:1980 Author Organization [facility] Address [address] [place] [address] Care Team Providers Name Role Phone Diya Mora MD Primary Care Provider Lila Reyes Insurance Hmo Encounter Details Date Type Department Care Team Description 11/27/2019 Orders Only [facility] Doctor Unassigned, No [address] [facility] [place] [address] [address] [place] [address] Allergies Active Allergy Reactions Severity Noted Date [...] as of this encounter (statuses as of 11/30/2019) Medications Medication Sig Dispensed Refills Start Date [...] as of this encounter (statuses as of 11/30/2019) Active Problems Problem Noted Date Syncope 10/29/2019 [...] Added automatically from request for yara arslan [id number] Abdominal pain, unspecified abdominal location 018 Overview: Added automatically from request for yara arslan [id number] Nausea and vomiting, intractability of vomiting not sp ecified, unspecified 07/13/2018 vomiting type Overview: Added automatically from request for yara arslan [id number] Chest pain 04/27/2018 Essential hypertension 04/27/2018 Pacemaker 04/27/2018 PAF (paroxysmal atrial fibrillation) 04/27/2018 History of cardiac pacemaker in situ 08/23/2017 Tachycardia, unspecified 06/22/2017 Elevated liver enzymes 07/23/2014 Pseudoseizure 04/15/2014 Left sided numbness 03/22/2014 Prediabetes 09/24/2013 Loss of weight 09/24/2013 Hypothyroidism 09/24/2013 Overview: ICD10 Diagnosis Term Retail And Promotions Coordinator Utility Hypoglycemia 08/21/2013 Overview: ICD10 Diagnosis Term Retail And Promotions Coordinator Utility documented as of this encounter (statuses as of 11/30/2019) Resolved Problems Problem Noted Date Resolved Date Metabolic syndrome X 07/23/2014 07/23/2014 documented as of this encounter (statuses as of 11/30/2019) Immunizations Name Administration Dates Next Due Pneumococcal [...] Treatment Date Type Specialty Care Team Description 12/02/2019 Office Visit Urology Tera Sultana MD [address] [place] [address]. [place] [address] 12/09/2019 Nurse Visit Cardiology Visit, Adc Nurse 12/10/2019 Office Visit Cardiology Navi Hines MD [address] [phone] 12/19/2019 Appointment Cardiac Electrophysiology Gucci Ocampo MD [address] [place] [address] Anesthesia-Yana, Ep Lab Outpt-Yana, Ep Lab Health Maintenance Due Date Last Done Comments VARICELLA VACCINES (1 of 2 - 2-dose childhood series) 1982 DTaP,Tdap,and Td Vaccines (1 - Tdap) 1992 PAP SMEAR 06/21/2007 06/21/2004 INFLUENZA VACCINE (#1) 2019 PNEUMOCOCCAL 0-64 YEARS COMBINED SERIES Completed 06/23/20 17 documented as of this encounter Implants Implanted Type Area Steam Distribution Supervisor Device Identifier Shelf Exp iration Model / Serial Date / Lot Pacemaker documented as of this encounter Procedures Procedure Name Priority Date/Time Associated Diagnosis Comme nts REFERRAL- Routine 11/27/2019 12:01 AM 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
--- OUTSIDE RECORDS SUMMARY | 2020-02-10 15:29 | XMS REPORT | Summary of Care ---
:1980 Author Organization [facility] Address [address] [place] [address] Care Team Providers Name Role Phone Diya Mora MD Primary Care Provider Lila Reyes Insurance Hmo Reason for Visit Reason Comments New Patient Kidney Stones 05/04 (Routine) Status Reason Specialty Diagnoses / Referred By Referred To Procedures Contact Contact Closed URO-UROLOGY / Diagnoses Recurrent and persistent hematuria with minor glomerular abnormality Diya Mora Laith, MD Urology Procedures CONSULT UROLOGY NEW VISIT (FIRST TIME) MD Yoni [address] [place] [address], [phone] [facility] Phone: Encounter Details Date Type Department Care Team Description 12/02/2019 Office Visit [facility] Urology- Alejandra Sultana MD Left upper quadrant pain (Primary Dx); [address] Calculus of kidney [address] [place] [address] [address] Suite [facility] [phone] [place] [address] Allergies Active Allergy Reactions Severity [...] as of this encounter (statuses as of 12/02/2019) Medications Medication Sig Dispensed Refills Start Date [...] 100 mg TK 1 T PO HS 06/16/2017 Active tablet venlafaxine XR 150 mg [...] as of this encounter (statuses as of 12/02/2019) Active Problems Problem Noted Date Syncope 10/29/2019 [...] Added automatically from request for yara arslan [id number] Abdominal pain, unspecified abdominal location 018 Overview: Added automatically from request for yara arslan [id number] Nausea and vomiting, intractability of vomiting not sp ecified, unspecified 07/13/2018 vomiting type Overview: Added automatically from request for yara arslan [id number] Chest pain 04/27/2018 Essential hypertension 04/27/2018 Pacemaker 04/27/2018 PAF (paroxysmal atrial fibrillation) 04/27/2018 History of cardiac pacemaker in situ 08/23/2017 Tachycardia, unspecified 06/22/2017 Elevated liver enzymes 07/23/2014 Pseudoseizure 04/15/2014 Left sided numbness 03/22/2014 Prediabetes 09/24/2013 Loss of weight 09/24/2013 Hypothyroidism 09/24/2013 Overview: ICD10 Diagnosis Term Sander Wooden Pencils Utility Hypoglycemia 08/21/2013 Overview: ICD10 Diagnosis Term Sander Wooden Pencils Utility documented as of this encounter (statuses as of 12/02/2019) Resolved Problems Problem Noted Date Resolved Date Metabolic syndrome X 07/23/2014 07/23/2014 documented as of this encounter (statuses as of 12/02/2019) Immunizations Name Administration Dates Next Due Pneumococcal [...] Sign Reading Time Taken Comments Blood Pressure 115/77 12/02/2019 10:54 AM CDT Pulse 97 12/02/2019 10:54 AM CDT Temperature 37.4 C (99.3 F) 12/02/2019 10:54 AM CDT Respiratory Rate 18 12/02/2019 10:54 AM CDT Oxygen Saturation - - Inhaled Oxygen Concentration - - Weight 50.4 kg (111 lb 3.2 oz) 12/02/2019 10:54 AM CDT Height - - Body Mass Index 22.46 11/26/2019 10:32 AM 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 documented in this encounter Progress Notes Tera Sultana MD - 12/02/2019 11:00 AM CDT Urology Clinic Note / History and Physical Referred by: Dr Mora Chief Complaint: I was asked to give my opinion regarding Jenni Rivera is a 39 year old female who presents with hx of kidney stones on CT and LUQ pain History of Present Illness 12/02/2019: Jenni Rivera is a 39 year old female with complex PMHx of sick sinus syndrome,hypertension,admitted to the hospital with:syncopal episodes, Ventricular Tachycardia (25 beat run) - possibly due to digoxin toxicity, Syncopal episode Digoxin toxicity, H/o sick sinus syndrome - s/p PPM in the past, Hypertension, Atrial fibrillation Seizure disorder, Depression, Normal systolic and diastolic function on recent echo Oct 2019. Here today with hx of recurrent LUQ pain associated with occasional N&V over the last 12 months,associated with change in bowel habits. No hx of flank pain , hematuria of dysuria or LUTS. She has hx of kidney stones, passed spontaneously 8 years ago. No previous urological intervention to treat stones. CT scan Aug 2019 from outside hospitals report multiple very small and non obstructive stones bilaterally with HN. No hx of recent UTI, severe flank pain, fever/chills/rigors. Results for JENNI RIVERA ( ) as of 12/02/2019 11:44 Ref. Range 12/02/2019 10:59 POCT PH U Latest Ref Range: 5 - 8 mg/dl 5.5 POCT U SP GRAV Latest Ref Range: 1.005 - 1.025 mg/dl 1.015 POCT U GLU Latest Ref Range: Negative - Negative negative POCT U BLD Latest Ref Range: Negative - Negative negative POCT U KETONE Latest Ref Range: Negative - Negative negative POCT U PROT Latest Ref Range: Negative - Negative negative POCT U UROBILI Latest Ref Range: 0.2 - 1 mg/dl 0.2 POCT U BILI Latest Ref Range: Negative - Negative negative POCT U NIT Latest Ref Range: Negative - Negative negative POCT U LEUK EST Latest Ref Range: Negative - Negative negative POCT U COLOR Unknown yellow POCT U APPEAR Unknown clear Histories Past Medical History: Diagnosis Date A-fib Anemia [...] sinus syndrome TIA (transient ischemic attack) Transaminitis Past Surgical History: Procedure Laterality Date CHOLECYSTECTOMY COLONOSCOPY N/A 08/02/2018 Surgeon: Natalya Davis MD; Location: Endoscopy ([facility]) OR Location ESOPHAGOGASTRODUODENOSCOPY N/A 08/02/2018 Surgeon: Natalya Davis MD; Location: Endoscopy ([facility]) OR Location HB CONFIRM LOOP RECORDER Removed 10/2017 HYSTERECTOMY 07/2012 PACEMAKERS INSERTION 10/2017 [facility]; Dr Imtiaz Soto, [facility], inserted twice Family History Problem Relation Age of Onset [...] Son Bipolar disorder Son Genetic Son Autism Social History Socioeconomic History Marital status: Spouse [...] file Gets together: Not on file Attends pentecostalism service: Not on file Active member of [...] file Social History Narrative Not on file Allergies Allergies Allergen Reactions Aluminum Aspirin Anaphylaxis Asa [...] papertape. Cefixime Rash Sulfa (Sulfonamide Antibiotics) Rash Review of Systems Constitutional: negative Eyes: negative Ears, nose, mouth, throat: negative Cardiovascular: negative Respiratory: negative Gastrointestinal: negative Genitourinary: (+) per HPI Musculoskeletal: negative Integumentary: negative Neurological: negative Psychiatric: negative Endocrine: negative Hematologic/Lymphatic: negative Allergic/Immunologic: negative, allergies listed above Physical Examination Blood pressure 115/77, pulse 97, temperature 37.4 C (99.3 F), temperature source Oral, resp. rate 18, weight 50.4 kg (111 lb 3.2 oz). Constitutional: healthy, no acute distress Eyes: normal external eye, conjunctiva and sclera normal Ears, nose, mouth, throat: normocephalic, moist mucous membranes Cardiovascular: regular rate and rhythm Respiratory: respirations unlabored on room air Gastrointestinal: soft, non-distended, mild LUQ tenderness with no flank tenderness Musculoskeletal: no clubbing, cyanosis or edema Skin: no rashes Neurologic: alert and oriented x3 Psychiatric: appropriate mood and affect Hematologic: no bruising Laboratory Per HPI Radiology Chest 2 Views Result Date: 11/16/2019 1. No acute fracture subluxation left elbow. 2. No acute fracture left forearm. 3. No acute fractureleft hand. 4. No acute fracture left humerus. 5. No acute fracture left wrist. RL: [id number] AFC: [id number] Findings: IMPRESSION: END OF REPORT Xr Elbow <3 Vw Left Result Date: 11/16/2019 1. No acute fracture subluxation left elbow. 2. No acute fracture left forearm. 3. No acute fractureleft hand. 4. No acute fracture left humerus. 5. No acute fracture left wrist. RL: [id number] AFC: [id number] Findings: IMPRESSION: END OF REPORT Xr Forearm 2 Vw Left Result Date: 11/16/2019 1. No acute fracture subluxation left elbow. 2. No acute fracture left forearm. 3. No acute fractureleft hand. 4. No acute fracture left humerus. 5. No acute fracture left wrist. RL: [id number] AFC: [id number] Findings: IMPRESSION: END OF REPORT Xr Hand <3 Vw Left Result Date: 11/16/2019 1. No acute fracture subluxation left elbow. 2. No acute fracture left forearm. 3. No acute fractureleft hand. 4. No acute fracture left humerus. 5. No acute fracture left wrist. RL: [id number] AFC: [id number] Findings: IMPRESSION: END OF REPORT Xr Humerus 2 Vw Left Result Date: 11/16/2019 1. No acute fracture subluxation left elbow. 2. No acute fracture left forearm. 3. No acute fractureleft hand. 4. No acute fracture left humerus. 5. No acute fracture left wrist. RL: [id number] AFC: [id number] Findings: IMPRESSION: END OF REPORT Xr Shoulder 2+ Vw Left Result Date: 11/16/2019 1. No acute fracture subluxation left elbow. 2. No acute fracture left forearm. 3. No acute fractureleft hand. 4. No acute fracture left humerus. 5. No acute fracture left wrist. 6. No acute fracture or dislocation of the left shoulder. RL: [id number] AFC: [id number] END OF REPORT Xr Wrist 3+ Vw Left Result Date: 11/16/2019 1. No acute fracture subluxation left elbow. 2. No acute fracture left forearm. 3. No acute fractureleft hand. 4. No acute fracture left humerus. 5. No acute fracture left wrist. RL: [id number] AFC: [id number] Findings: IMPRESSION: END OF REPORT Procedure Note None Assessment Jenni Rivera is a 39 year old female with complex PMHx ick sinus syndrome,hypertension,admitted to the hospital with:syncopal episodes, Ventricular Tachycardia (25 beat run) - possibly due to digoxin toxicity, Syncopal episode Digoxin toxicity, H/o sick sinus syndrome - s/p PPM in the past, Hypertension, Atrial fibrillation Seizure disorder, Depression, Normal systolic and diastolic function on recent echo Oct 2019. : 1.recurrent LUQ pain associated with occasional N&V over the last 12 months, associated with change in bowel habits. No hx of flank pain , hematuria of dysuria or LUTS. Hx of previous kidney stones 8 years ago. I reviewed the CT images which showed less than 1 mm very small stones non- obstructive, barely seen on CT, with no HN. I counseled the patient that her presentation is very unlikely to be related to these very small stones non-obstructive stones, I and I would recommend that she follows up with her PCP for consideration of GI referral. Plan - Stone diet information handed to the patient - RTC PRN, may benefit form annual US kidney to assess for stone burden Tera Sultana MD Sherry Clark - 12/02/2019 11:00 AM MELVAthelma Rivera is a 39 year old female comes to clinic independent in ambulation for new patient kidney stones. Pt comes accompanied by family member . Pt in NAD w/ pain reported 05/04. Pt preferred language is Swedish. Pt. denies fall in last 12 months. Allergies and medications reviewed and updated. [employer] [facility] #[id number] - [place] [address] [address] P[facility] AT [facility] OF [address] Sherry Leone 12/02/2019 10:56 AM documented in this encounter Plan of Treatment Date Type Specialty Care Team Description 12/09/2019 Nurse Visit Cardiology Visit, Adc Nurse 12/10/2019 Office Visit Cardiology Navi Hines MD [address] [place] [phone] 12/19/2019 Appointment Cardiac Electrophysiology Gucci Ocampo MD [address] [place] [address] Anesthesia-Yana, Ep Lab Outpt-Yana, Ep Lab Health Maintenance Due Date Last Done Comments VARICELLA VACCINES (1 of 2 - 2-dose childhood series) 1982 DTaP,Tdap,and Td Vaccines (1 - Tdap) 1992 PAP SMEAR 06/21/2007 06/21/2004 INFLUENZA VACCINE (#1) 2019 PNEUMOCOCCAL 0-64 YEARS COMBINED SERIES Completed 06/23/20 17 documented as of this encounter Implants Implanted Type Area Ekg Tech Device Identifier Shelf Exp iration Model / Serial Date / Lot Pacemaker documented as of this encounter Procedures Procedure Name Priority Date/Time Associated Comments Diagnosis POCT URINALYSIS AUTO Routine 12/02/2019 10:59 AM [place] [employer] valdemar Results for this CDT procedure are i n the results section. documented in this encounter Results POCT URINALYSIS, INSTRUMENT (12/02/2019 10:59 AM CDT) Pathologist Sig nature POCT U SP GRAV 1.015 1.005 - 1.025 mg/dl POCT PH U 5.5 5 - 8 mg/dl POCT U LEUK EST negative Negative - Negative POCT U NIT negative Negative - Negative POCT U PROT negative Negative - Negative POCT U GLU negative Negative - Negative POCT U KETONE negative Negative - Negative POCT U UROBILI 0.2 0.2 - 1 mg/dl POCT U BILI negative Negative - Negative POCT U BLD negative Negative - Negative POCT U COLOR yellow POCT U APPEAR clear Specimen Urine - URINE, CLEAN CATCH documented in this encounter Visit Diagnoses Diagnosis Left upper quadrant pain - Primary Abdominal pain, left upper quadrant Calculus of kidney documented in this encounter Insurance Payer Benefit Plan / Subscriber ID Effective Phone Address T ype Group Dates LYNDSEY SOLORIO xxxxxxxxx 2011-Kobe PERALTA Medic aid HEALTHCARE - [place]ARE [id number] MANAGED MEDICAID [place], [place] (Work) [phone] documented as of this encounter
--- OUTSIDE RECORDS SUMMARY | 2020-02-10 15:29 | XMS REPORT | Summary of Care ---
:1980 Author Organization [facility] Address [address] [place] [address] Care Team Providers Name Role Phone Diya [...] UROLOGY NEW VISIT (FIRST TIME) MD Yoni [address] [place] [address], [phone] [facility] Phone: Encounter Details Date Type Department Care Team Description 12/02/2019 Office Visit [facility] Urology- Alejandra Sultana MD Left upper quadrant pain (Primary Dx); [address] Calculus of kidney [address] [place] [address] [address] Suite [facility] [phone] [place] [address] Allergies Active Allergy Reactions Severity [...] Added automatically from request for yara arslan [id number] Abdominal pain, unspecified abdominal location 018 Overview: Added automatically from request for yara arslan [id number] Nausea and vomiting, intractability of vomiting not sp ecified, unspecified 07/13/2018 vomiting type Overview: Added automatically from request for yara arslan [id number] Chest pain 04/27/2018 Essential hypertension 04/27/2018 Pacemaker 04/27/2018 PAF (paroxysmal atrial fibrillation) 04/27/2018 History of cardiac pacemaker in situ 08/23/2017 Tachycardia, unspecified 06/22/2017 Elevated liver enzymes 07/23/2014 Pseudoseizure 04/15/2014 Left sided numbness 03/22/2014 Prediabetes 09/24/2013 Loss of weight 09/24/2013 Hypothyroidism 09/24/2013 Overview: ICD10 Diagnosis Term Carbide Tool Die Maker Utility Hypoglycemia 08/21/2013 Overview: ICD10 Diagnosis Term Carbide Tool Die Maker Utility documented as of this encounter (statuses [...] Body Mass Index 22.46 11/26/2019 10:32 AM WOUND NURSE documented in this encounter Progress Notes Tera [...] INSERTION 10/2017 [facility]; Dr Imtiaz Soto, [facility], inserted twice Family History Problem Relation [...] file Gets together: Not on file Attends shinto service: Not on file Active member of [...] acute fracture left wrist. RL: 5611 AFC: [id number] Findings: IMPRESSION: END OF REPORT Xr Elbow <3 Vw Left Result Date: 11/16/2019 1. No acute fracture subluxation left elbow. 2. No acute fracture left forearm. 3. No acute fractureleft hand. 4. No acute fracture left humerus. 5. No acute fracture left wrist. RL: [id number] AFC: [id number] Findings: IMPRESSION: END OF REPORT Xr Forearm 2 Vw Left Result Date: 11/16/2019 1. No acute fracture subluxation left elbow. 2. No acute fracture left forearm. 3. No acute fractureleft hand. 4. No acute fracture left humerus. 5. No acute fracture left wrist. RL: [id number] AFC: [id number] Findings: IMPRESSION: END OF REPORT Xr Hand <3 Vw Left Result Date: 11/16/2019 1. No acute fracture subluxation left elbow. 2. No acute fracture left forearm. 3. No acute fractureleft hand. 4. No acute fracture left humerus. 5. No acute fracture left wrist. RL: 5611 AFC: [id number] Findings: IMPRESSION: END OF REPORT Xr Humerus 2 Vw Left Result Date: 11/16/2019 1. No acute fracture subluxation left elbow. 2. No acute fracture left forearm. 3. No acute fractureleft hand. 4. No acute fracture left humerus. 5. No acute fracture left wrist. RL: [id number] AFC: [id number] Findings: IMPRESSION: END OF REPORT Xr Shoulder 2+ Vw Left Result Date: 11/16/2019 1. No acute fracture subluxation left elbow. 2. No acute fracture left forearm. 3. No acute fractureleft hand. 4. No acute fracture left humerus. 5. No acute fracture left wrist. 6. No acute fracture or dislocation of the left shoulder. RL: 5611 AFC: [id number] END OF REPORT Xr Wrist 3+ Vw Left Result Date: 11/16/2019 1. No acute fracture subluxation left elbow. 2. No acute fracture left forearm. 3. No acute fractureleft hand. 4. No acute fracture left humerus. 5. No acute fracture left wrist. RL: 5611 AFC: [id number] Findings: IMPRESSION: END OF REPORT Procedure Note [...] pain reported 05/04. Pt preferred language is Mauritanian. Pt. denies fall in last 12 months. Allergies and medications reviewed and updated. [employer] #[id number] - [place] [address] [facility] AT [facility] OF [address] Sherry Leone 12/02/2019 10:56 AM documented in this encounter Plan of Treatment Date Type Specialty Care Team Description 12/09/2019 Nurse Visit Cardiology Visit, Adc Nurse 12/10/2019 Office Visit Cardiology Navi Hines MD [address] [place] [address] [place] [phone] 12/19/2019 Appointment Cardiac Electrophysiology Gucci Ocampo MD [address] [place] [address] Anesthesia-Yana, Ep Lab Outpt-Yana, Ep Lab Health Maintenance Due Date Last Done Comments VARICELLA VACCINES (1 of 2 - 2-dose childhood series) 1982 DTaP,Tdap,and Td Vaccines (1 - Tdap) 1992 PAP SMEAR 06/21/2007 06/21/2004 INFLUENZA VACCINE (#1) 2019 PNEUMOCOCCAL 0-64 YEARS COMBINED SERIES Completed 06/23/20 17 documented as of this encounter Implants Implanted Type Area District Captain Device Identifier Shelf Exp iration Model / [...] T ype Group Dates LYNDSEY SOLORIO xxxxxxxxx 2011-Kboe PERAL[employer] Medic aid HEALTHCARE - HEALTHCARE [id number] MANAGED MEDICAID [place], [place] (Work) [id number] documented as of this encounter
--- OUTSIDE RECORDS SUMMARY | 2020-02-10 15:30 | XMS REPORT | Summary of Care ---
:1980 Author Organization [facility] Address [address] [place] [address] Care Team Providers Name Role Phone Isaac Morajulio c Vallejo MD Primary Care Provider Lila Reyes Insurance Hmo Encounter Details Date Type Department Care Team Description 12/10/2019 Orders Only [facility] Doctor Unassigned, No [address] [facility] Name [place] [id number] [address] [place] [id number] Allergies Active Allergy Reactions Severity Noted Date [...] as of this encounter (statuses as of 12/10/2019) Medications Medication Sig Dispensed Refills Start Date [...] as of this encounter (statuses as of 12/10/2019) Active Problems Problem Noted Date Syncope 10/29/2019 [...] Added automatically from request for yara arslan [id number] Abdominal pain, unspecified abdominal location 018 Overview: Added automatically from request for yara arslan [id number] Nausea and vomiting, intractability of vomiting not sp ecified, unspecified 07/13/2018 vomiting type Overview: Added automatically from request for yara arslan [id number] Chest pain 04/27/2018 Essential hypertension 04/27/2018 Pacemaker 04/27/2018 PAF (paroxysmal atrial fibrillation) 04/27/2018 History of cardiac pacemaker in situ 08/23/2017 Tachycardia, unspecified 06/22/2017 Elevated liver enzymes 07/23/2014 Pseudoseizure 04/15/2014 Left sided numbness 03/22/2014 Prediabetes 09/24/2013 Loss of weight 09/24/2013 Hypothyroidism 09/24/2013 Overview: ICD10 Diagnosis Term Brand Sales Manager Utility Hypoglycemia 08/21/2013 Overview: ICD10 Diagnosis Term Brand Sales Manager Utility documented as of this encounter (statuses as of 12/10/2019) Resolved Problems Problem Noted Date Resolved Date Metabolic syndrome X 07/23/2014 07/23/2014 documented as of this encounter (statuses as of 12/10/2019) Immunizations Name Administration Dates Next Due Pneumococcal [...] Treatment Date Type Specialty Care Team Description 12/10/2019 Office Visit Cardiology Navi Hines MD [address] [id number] 12/19/2019 Hospital Encounter Cardiac Electrophysiology Gucci Fitzgerald MD [address] [place] [address] Anesthesia-Yana, Ep Lab Outpt-[facility], Ep Lab 01/17/2020 Nurse Visit Cardiology Visit, Adc Nurse Health Maintenance Due Date Last Done Comments VARICELLA VACCINES (1 of 2 - 2-dose childhood series) 1982 DTaP,Tdap,and Td Vaccines (1 - Tdap) 1992 PAP SMEAR 06/21/2007 06/21/2004 INFLUENZA VACCINE (#1) 2019 PNEUMOCOCCAL 0-64 YEARS COMBINED SERIES Completed 06/23/20 17 documented as of this encounter Implants Implanted Type Area Spring Intern Device Identifier Shelf Exp iration Model / Serial Date / Lot Pacemaker documented as of this encounter Procedures Procedure Name Priority Date/Time Associated Diagnosis Comme nts EXTERNAL PROVIDER Routine 12/10/2019 12:01 AM CDT RECORDS documented in this encounter Results Not on filedocumented in this encounter Insurance Payer Benefit Plan / Subscriber ID Effective Phone Address T ype Group Dates LYNDSEY SOLORIO xxxxxxxxx 2011-e [address] [place] [id number] [place] MED[place], [place] documented as of this encounter
--- OUTSIDE RECORDS SUMMARY | 2020-02-10 15:31 | XMS REPORT | Summary of Care ---
:1980 Author Organization [facility] Address [address] [place] [address] Care Team Providers Name Role Phone Diya Mora MD Primary Care Provider Lila Reyes Insurance Hmo Reason for Visit Reason Comments Follow-up (Routine) Status Reason Specialty Diagnoses / Referred By Referred To Procedures Contact Contact Closed IM-CARDIOVASCULAR Diagnoses Syncope, unspecified syncope type Ventricular tachycardia Intercostal pain Essential hypertension Bird Dumas DISEASE / Procedures Discharge Follow-Up: Specialty Service IM-CARDIOVASCULAR DISEASE; 4-6 Weeks MD [facility] [address] [place] [id number] Encounter Details Date Type Department Care Team Description 12/10/2019 Office Visit [facility] Navi Hines Palpitations (Primary Dx); Cardiology- Nydia Merida MD Inappropriate sinus tachycardia; [address] Sinus tachycardia; Drive, [address] DEO 106 Sick sinus syndrome; [place], [place] Atypical chest pain; [id number] Essential hypertension; [phone] History of DVT (deep vein thrombosis); [phone] PAF (paroxysmal atrial fibrillation); (Fax) Dizzy spells Allergies Active Allergy Reactions Severity Noted Date [...] 12/10/2019) Medications Medication Sig Dispensed Refills Start End Date Status Date loratadine as needed. 0 Active (CLARITIN) 10 mg 3 tablet ALBUTEROL SULFATE Inhale. 0 Ac tive (PROAIR HFA INHALE) albuterol (ACCUNEB) Use 1 Ampule 0 Active 1.25 mg/3 mL as directed nebulizer solution every 6 (six) hours as needed. DALIRESP 500 mcg Tab daily. 0 Active 3 ABILIFY 10 mg tablet TK 1 T PO QHS 1 Active 7 ABILIFY 5 mg tablet TK 1 T PO D, 1 Active in am 7 benztropine 1 mg TK 1 T PO BID 1 Active tablet 7 busPIRone 15 mg TK 1 T PO BID 1 Active tablet 7 topiramate 100 mg TK 1 T PO HS 1 Active tablet 7 venlafaxine XR 150 TK 1 C PO HS 1 Active mg 24 hr capsule 7 fluticasone-vilanter Inhale 1 Puff 0 Active ol (BREO ELLIPTA) daily. 100-25 mcg/dose DsDv tiotropium 18 mcg Inhale 18 mcg 0 Active inhalation daily. ALPRAZolam (XANAX) Take 0.25 mg 0 Active 0.25 mg by mouth at tabletIndications: bedtime as History of DVT (deep needed. vein thrombosis), Sick sinus syndrome, Tachycardia, Pain in pacemaker pocket Levothyroxine 150 Take 150 mcg 0 Active mcg capsule by mouth daily. blood sugar Use as 100 Strip 3 Active diagnostic (TRUETEST directed. R 8 TEST STRIPS) 73.03. Check stripIndications: once daily Prediabetes lancets (TRUEPLUS Use as 100 Each 3 Ac tive LANCETS) 33 gauge directed. R 8 MiscIndications: 73.03, Check Prediabetes once daily atorvastatin 10 mg Take 10 mg by 1 Active tablet mouth daily. 8 levETIRAcetam 500 mg Take 2 120 tablet 6 Active tabletIndications: tablets by 9 Seizure cerebral mouth 2 (two) times daily. sucralfate Take 10 mL by 1200 mL 2 Activ e (CARAFATE) 100 mg/mL mouth before 9 suspension meals and at bedtime. acetaminophen-codein Take 1 tablet 30 tablet 0 Active e (TYLENOL-CODEINE by mouth 0 #3) 300-30 mg every 4 tabletIndications: (four) hours Chest pain, as needed for unspecified type Pain (scale 1-3). pregabalin (LYRICA) Take 25 mg by 0 Active 25 mg capsule mouth at bedtime. pantoprazole 40 mg Take 1 tablet 30 tablet 0 Active EC by mouth 0 tabletIndications: daily. Syncope, unspecified syncope type, Ventricular tachycardia, Intercostal pain, Essential hypertension cyclobenzaprine 5 mg Take 1 tablet 12 tablet 0 Active tabletIndications: by mouth 3 0 Cervicalgia, (three) times Radicular pain in daily as left arm needed for Muscle Spasms. Diclofenac Sodium Apply to 100 g 0 Ac tive (VOLTAREN) 1 % area(s) 2 0 gelIndications: (two) times Chest pain, daily as unspecified type, needed for Cervicalgia, Pain (scale Radicular pain in 4-6). left arm apixaban (ELIQUIS) 5 Take 1 tablet 180 tablet 3 Active mg by mouth 2 0 tabletIndications: (two) times PAF daily. Indications: PAF carvediloL 25 mg Take 1 tablet 180 tablet 3 Active tabletIndications: by mouth 2 0 History of DVT (deep (two) times vein thrombosis), daily with Sick sinus syndrome meals. digoxin 250 mcg Take 1 tablet 90 tablet 1 Active (0.25 mg) by mouth 0 tabletIndications: daily. Inappropriate sinus tachycardia, Sinus tachycardia, Sick sinus syndrome, Palpitations, Atypical chest pain, Essential hypertension, History of DVT (deep vein thrombosis), PAF (paroxysmal atrial fibrillation), Dizzy spells CARVEDILOL 25 mg TAKE 1 TABLET 180 tablet 2 12/10/19 Discontinued tabletIndications: BY MOUTH 0 20 ( Reorder) History of DVT (deep TWICE DAILY vein thrombosis), WITH MEALS Sick sinus syndrome, Tachycardia ELIQUIS 5 mg TAKE 1 TABLET 180 tablet 1 12/10/19 Di scontinued tabletIndications: BY MOUTH 0 20 ( Reorder) Inappropriate sinus TWICE DAILY tachycardia, Sinus tachycardia, Sick sinus syndrome, Palpitations, Atypical chest pain, Essential hypertension, History of DVT (deep vein thrombosis), PAF (paroxysmal atrial fibrillation), Dizzy spells digoxin 250 mcg Take 250 mcg 0 12/10/19 D iscontinued (0.25 mg) tablet by mouth 20 (Re order) daily. documented as of this encounter (statuses [...] Overview: Added automatically from request for yara mcdaniels [id number] Abdominal pain, unspecified abdominal location 018 Overview: Added automatically from request for yara mcdaniels [id number] Nausea and vomiting, intractability of vomiting not sp ecified, unspecified 07/13/2018 vomiting type Overview: Added automatically from request for yara mcdaniels [id number] Chest pain 04/27/2018 Essential hypertension 04/27/2018 Pacemaker 04/27/2018 PAF (paroxysmal atrial fibrillation) 04/27/2018 History of cardiac pacemaker in situ 08/23/2017 Tachycardia, unspecified 06/22/2017 Elevated liver enzymes 07/23/2014 Pseudoseizure 04/15/2014 Left sided numbness 03/22/2014 Prediabetes 09/24/2013 Loss of weight 09/24/2013 Hypothyroidism 09/24/2013 Overview: ICD10 Diagnosis 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 Utility Hypoglycemia 08/21/2013 Overview: ICD10 Diagnosis 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 Utility documented as of this encounter (statuses [...] Sign Reading Time Taken Comments Blood Pressure 123/86 12/10/2019 2:24 PM CDT Pulse 90 12/10/2019 2:24 PM CDT Temperature - - Respiratory Rate 19 12/10/2019 2:24 PM CDT Oxygen Saturation 99% 12/10/2019 2:24 PM CDT Inhaled Oxygen Concentration - - Weight 50.3 kg (110 lb 12.8 oz) 12/10/2019 2:24 PM CDT Height - - Body Mass Index 22.38 11/26/2019 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 History obtained talking to patient herself/son. Since the last OV, she was admitted for 10/2019 was admitted to [facility] for syncope,cp, sob, palpitations. She was given IV digoxin for abnormal heart rhythm labelled as "VT" and developed digoxin toxicity. Transferred to [facility]. Coreg/dig was DC. Toprol XL was started. She was having symptoms of palpitations, so restarted coreg. She reports Dr Sharp recently, and then being planned for EPstudy/ablation and went back to digoxin 250 mcg daily since last few weeks. She had tried Ivabradine and Cardizem, but could tolerate it. AN NYHA Class II-III and chest pain constant associated with palpitations. Continues to have palpitations that happens at random with no specific aggravating or relieving factors. Dyspnea on exertion NYHA class II noted. No PND or orthopnea. No pedal edema. No syncopal attacks. Her past medical history from the cardiac standpoint include mitral prolapse/chronic tachycardia/bradycardia. Previous cardiac history History was obtained talking to the patient herself along with her . Patient reports that she has sick sinus syndrome for which she had initially implantable loop recorder. Patient was noted tohave associated bradycardia and tachycardia. Patient also gives history of syncope/passing out episodes. Subsequently which had a implantable loop recorder placed in July 2017. She states that he got infected and the entire system was removed in [facility]. She had IV antibiotics with IV vancomycin is supposed to be for 14 days however she had only taken for 7-10 days time. Subsequently which had a pacemaker system placed on the right side on November 01, 2017. Patient had a follow-up visit in a week's time and was noted to have infection again. At this time patient was on IV antibiotics for 14 days followed by by mouth antibiotics for 2 weeks and she was taking antibiotics up until and middle of November. The infection was resolved. Based upon the prior records. Patient underwent a pacemaker placement which was infected subsequent to which it was removed and then re-placed. The reason for the pacemaker is as reported as having a sinus pause reviewed based upon the records. I do not have the strips for review. Patient also had multiple stress test that was all reported within normal limits. These were all excised based treadmill stress testing. We do see one pacemaker interrogation report which shows presence of sinus tachycardia/SVT. There is also mention of a cardiac arrest in the cardiothoracic note who did the pacemaker pocket cleaning infection and removal. There is also a mention of underlying paroxysmal fibrillation which is not clear-cut upon review. Previous Cardiac Studies: IMAGING - I personally reviewed, pertinent results as below: EKG 11/2018 shows sinus tachycardia with nonspecific ST-T changes CT Cardiac 01/2019 IMPRESSION 1. Total coronary calcium score = 0 is at the 0th percentile for age and gender. 2. Normal origin of the coronary arteries which are free of significant disease or stenosis. CAD-RADS 0. 3. Normal cardiac chamber size. 4. Unremarkable aortic valve and aortic root. 5. Unremarkable pericardium. 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 AT/AF burden: < 1 % 6 episodes of AMS: 8 high V rate. All appears to sinus tachycardia. Possibility of SVT cant be ruled out. Rates at 180 bpm. EGM reviewed. Recommendations: Normal functioning device and leads. Follow up in 6 months. Recommended to call tech services to trouble shoot the [place] home setup for proper transmission. Echo 01/2018 Interpretation Summary A complete two-dimensional transthoracic echocardiogram was performed (2D, M- mode, Doppler and colorflow Doppler). Compared to prior study, there is no significant change. The study was technically adequate. Preserved LV systolic function. No hemodynamically significant valve diease. RVSP 15-20 mmHg. Left ventricular systolic function is normal. The left ventricular wall motion is normal. Ejection Fraction = 55-60%. Echo 04/2019 Interpretation Summary A complete two-dimensional transthoracic echocardiogram was performed (2D, M- mode, Doppler and colorflow Doppler). The study was diagnostic quality. Compared to prior study, there is no significant change. Preserved LV systolic function. No hemodynamically significant valve diease. RVSP 15-20 mmHg. Left ventricular systolic function is normal. Ejection Fraction = 60-65%. The left ventricular wall motion is normal. Echo 05/2017 Interpretation Summary A complete two-dimensional transthoracic echocardiogram was performed (2D, M- mode, Doppler and colorflow Doppler). There is no comparison study available. The study was diagnostic quality. Images were obtained in sinus tach. Normal LV size and thickness. Preserved LV systolic function. Normal RV size and function. No hemodynamically significant valve diease. RVSP 15-20 mmHg. Outside records reviewed. Cardiac thoracic consult dated August 2017 was reviewed. Patient was referred to [facility] on September 05, 2017 for evaluation of infected pacemaker pocket and removal of the generator. As for the consult note patient has history of atrial fibrillation tachybradycardia syndrome and cardiac arrest. Patient had a pacemaker placed in a number 05/14/17 and subsequently with patient developed nausea and vomiting within 2-3 days after the procedure. A subsequent to which the patient was noted to have the pacemaker pocket infection. the patient had I&D and pocket revision in August 2017. Patient had a new pacemaker implant implanted in October 2017. On January 19, 2016 patient had implantable loop recorder placement for syncope and collapse diagnosis. Exercise treadmill stress test was done in November 2015. Patient reports protocol for total of 7 minutes and 40 ms. The metabolic equivalents of 9.8. The cardiac rate is 139. Normal stress test. Echocardiogram dated on December 2014 showed preserved LV systolic function normal LV size. Normal RV function. Normal biatrial enlargement. No significant valve motions vitals noted. Patient had a negative tilt test done on November 2014. Digoxin was added in December 2017. History of TIA noted. Dr Soto OV note encounter date June 2017 was reviewed which showed the mention of syncope and sick sinus syndrome. Patient was noted to have sinus pauses exceeding 3 seconds in the loop recorder. At that time she was reported to the syncope. Hence I think the decision was made for the pacemaker placement. The new pacemaker [facility] [facility] was implanted on November 01, 2017. Ex TMT 11/2015: 9.8 METS: reported to be normal Ex TMT 11/2014: Report normal. 7.7 METS Ex TMT 12/2012: Report normal. 7.4 METS PAST MEDICAL HISTORY Past Medical History: Diagnosis Date A-fib Anemia [...] INSERTION 10/2017 [facility]; Dr Imtiaz Soto, [facility], inserted twice Family History Problem Relation Age [...] Son Bipolar disorder Son Genetic Son Autism SOCIAL HISTORY Social History Socioeconomic History Marital status: Spouse [...] Last attempt to quit: 05/09/2003 Years since quittin.6 Smokeless tobacco: Never Used Tobacco comment: quit [...] file Gets together: Not on file Attends alevism service: Not on file Active member of [...] file Social History Narrative Not on file ALLERGIES Allergies Allergen Reactions Aluminum Aspirin Anaphylaxis Asa [...] papertape. Cefixime Rash Sulfa (Sulfonamide Antibiotics) Rash MEDICATIONS Patient's Medications START taking these medications No medications on file CONTINUE taking these medications which have NOT CHANGED ABILIFY 10 MG TABLET TK 1 T PO QHS ABILIFY 5 MG TABLET TK 1 T PO D, in am ACETAMINOPHEN-CODEINE (TYLENOL-CODEINE #3) 300-30 MG TABLET Take 1 tablet by mouth every 4 (four) hours as needed for Pain (scale 1-3). ALBUTEROL (ACCUNEB) 1.25 MG/3 ML NEBULIZER SOLUTION Use 1 Ampule as directed every 6 (six) hoursas needed. ALBUTEROL SULFATE (PROAIR HFA INHALE) Inhale. ALPRAZOLAM (XANAX) 0.25 MG TABLET Take 0.25 mg by mouth at bedtime as needed. ATORVASTATIN 10 MG TABLET Take 10 mg by mouth daily. BENZTROPINE 1 MG TABLET TK 1 T PO BID BLOOD SUGAR DIAGNOSTIC (TRUETEST TEST STRIPS) STRIP Use as directed. R 73.03. Check once daily BUSPIRONE 15 MG TABLET TK 1 T PO BID CARVEDILOL 25 MG TABLET TAKE 1 TABLET BY MOUTH TWICE DAILY WITH MEALS CYCLOBENZAPRINE 5 MG TABLET Take 1 tablet by mouth 3 (three) times daily as needed for Muscle Spasms. DALIRESP 500 MCG TAB daily. DICLOFENAC SODIUM (VOLTAREN) 1 % GEL Apply to area(s) 2 (two) times daily as needed for Pain (scale 4-6). DIGOXIN 250 MCG (0.25 MG) TABLET Take 250 mcg by mouth daily. ELIQUIS 5 MG TABLET TAKE 1 TABLET BY MOUTH TWICE DAILY FLUTICASONE-VILANTEROL (BREO ELLIPTA) 100-25 MCG/DOSE DSDV Inhale 1 Puff daily. LANCETS (TRUEPLUS LANCETS) 33 GAUGE MISC Use as directed. R 73.03, Check once daily LEVETIRACETAM 500 MG TABLET Take 2 tablets by mouth 2 (two) times daily. LEVOTHYROXINE 150 MCG CAPSULE Take 150 mcg by mouth daily. LORATADINE (CLARITIN) 10 MG TABLET as needed. PANTOPRAZOLE 40 MG EC TABLET Take 1 tablet by mouth daily. PREGABALIN (LYRICA) 25 MG CAPSULE Take 25 mg by mouth at bedtime. SUCRALFATE (CARAFATE) 100 MG/ML SUSPENSION Take 10 mL by mouth before meals and at bedtime. TIOTROPIUM 18 MCG INHALATION Inhale 18 mcg daily. TOPIRAMATE 100 MG TABLET TK 1 T PO HS VENLAFAXINE XR 150 MG 24 HR CAPSULE TK 1 C PO HS START taking Modified Medications as Prescribed No medications on file STOP taking these medications No medications on file REVIEW OF SYSTEMS: Comprehensive 10-system review was conducted and were negative except for what's noted in the HPI. The following systems were reviewed: Constitutional, cardiovascular, respiratory, gastrointestinal, genitourinary, musculoskeletal, neurologic, psychiatric, endocrinological, and hematological. PHYSICAL EXAMINATION: Vitals: 12/10/19 1424 BP: 123/86 BP Location: Right arm Patient Position: Sitting BP CUFF SIZE: Adult Small Pulse: 90 Resp: 19 SpO2: 99% Weight: 110 lb 12.8 oz (50.3 kg) General: no apparent distress HEENT: normocephalic atraumatic Neck: supple, no lymphadenopathy, no bruits, no JVD Lungs: clear to auscultation bilaterally. Bilateral wheezing present . No increased work of breathing. Cardio: Regular rate and rhythm, S1&S2 normal, no murmurs, rubs or gallops Abdomen: soft; non-tender; non-distended; normoactive bowel sounds. : not examined Rectal: not examined Extremities: no clubbing, cyanosis, or edema. Skin: no rashes, no visible lesions. Neuro: no gross focal deficits LABS - Reviewed pertinent labs as below: CBC BMP PT/INR WBC x10^3 (/uL) Date Value 03/24/2014 5.6 WBC (10*3/L) Date Value 11/06/2019 7.53 NA Date Value 12/10/2019 141 mmol/L 03/24/2014 136 MMOL/L SODIUM-Q (mmol/L) Date Value 07/23/2014 145 No results found for: PT PLT x10^3 (/uL) Date Value 03/24/2014 220 PLT (10*3/L) Date Value 11/06/2019 253 K Date Value 12/10/2019 4.2 mmol/L 03/24/2014 4.2 MMOL/L POTASSIUM-Q (mmol/L) Date Value 07/23/2014 4.9 PT INR (no units) Date Value 03/22/2014 1.0 INR (no units) Date Value 11/06/2019 1.0 HGB Date Value 11/06/2019 13.3 g/dL 03/24/2014 13.0 G/DL BUN Date Value 12/10/2019 11 mg/dL 03/24/2014 20 MG/DL UREA NITROGEN (BUN)-Q (mg/dL) Date Value 07/23/2014 12 HCT (%) Date Value 11/06/2019 40.2 03/24/2014 38.8 CREATININE Date Value 12/10/2019 0.60 mg/dL 03/24/2014 0.71 MG/DL CREATININE-Q (mg/dL) Date Value 07/23/2014 0.70 LIPID PROFILE GLUCOSE Date Value 12/10/2019 79 mg/dL 03/24/2014 114 MG/DL (H) GLUCOSE-Q (mg/dL) Date Value 07/23/2014 93 CHOL Date Value 06/15/2019 202 mg/dL (H) 03/23/2014 171 MG/DL TSH LDL CHOL Date Value 06/15/2019 139 mg/dL 03/23/2014 104 MG/DL TSH Date Value 10/28/2019 5.32 mIU/L (H) 12/01/2005 2.72 uIU/mL TSH, 3RD GENERATION-Q (mIU/L) Date Value 07/23/2014 4.25 CARDIAC ENZYMES HDL CHOL (MG/DL) Date Value 03/23/2014 52 HDL (mg/dL) Date Value 06/15/2019 38 (L) No results found for: CK TRIG Date Value 06/15/2019 127 mg/dL 03/23/2014 73 MG/DL LFTs No results found for: CKMB AST(SGOT) (U/L) Date Value 11/06/2019 36 03/22/2014 59 (H) AST-Q (U/L) Date Value 07/23/2014 23 TROPONIN I (ng/mL) Date Value 11/07/2019 0.000 ALT(SGPT) (U/L) Date Value 05/30/2019 26 03/22/2014 68 (H) ALT-Q (U/L) Date Value 07/23/2014 24 ALTv (U/L) Date Value 11/06/2019 24 No results found for: BNP LDL CHOL Date Value 06/15/2019 139 mg/dL 03/23/2014 104 MG/DL Recent Labs 11/07/19 0048 TROPNI 0.000 NT-proBNP (pg/mL) Date Value 10/29/2019 69 LDL CHOL Date Value 06/15/2019 139 mg/dL 03/23/2014 104 MG/DL ASSESSMENT/PLAN 1. Palpitations apixaban (ELIQUIS) 5 mg tablet 2. Inappropriate sinus tachycardia apixaban (ELIQUIS) 5 mg tablet BASIC METABOLIC PANEL (NA, K, CL, CO2, GLUCOSE, BUN, CREATININE, CA) DIGOXIN, LEVEL 3. Sinus tachycardia apixaban (ELIQUIS) 5 mg tablet 4. Sick sinus syndrome apixaban (ELIQUIS) 5 mg tablet carvediloL 25 mg tablet 5. Atypical chest pain apixaban (ELIQUIS) 5 mg tablet 6. Essential hypertension apixaban (ELIQUIS) 5 mg tablet 7. History of DVT (deep vein thrombosis) apixaban (ELIQUIS) 5 mg tablet carvediloL 25 mg tablet 8. PAF (paroxysmal atrial fibrillation) apixaban (ELIQUIS) 5 mg tablet 9. Dizzy spells apixaban (ELIQUIS) 5 mg tablet Atypical chest pain: Reassured that her chest pain is non-cardiac etiology. Recommend noncardiac work up for chest pain with her PCP. Ranexa has been stopped. Sinus tachycardia/IST: Tried Ivabradine 5 mg BiD (started having rash) and then we had tried Cardizem CD 120 (but had worsening AN hence stopped). Seeing EP Dr Sharp and planned for EP study. Continue Coreg 25 mg BiD, Dig 250 mcg daily. Labs today. History of PAF/DVT in the past per old records: On Eliquis. Currently following tack cutter in [facility]. Dyslipiedemia: on lipitor 10 mg daily HTN: on Coreg 25 mg BiD. Follow up in 4 months. Recommended goal BP < 130/80 consistently, LDL << 100, HbA1c < 6.5. Recommend to follow up with PCP and Neurology. Patient's diease process and its evaluation and treatment were discussed. We discussed each of for cardio vascular-related problems and discussed long-term goals and expectations for the each problem.I reviewed each of the cardiac medications in detail. Reviewed the medication with patient in detail recommended to continue taking the current medications without further changes. Recommended, explained and stressed the importance of healthy eating habits and exercises and lifestyle modifications Follow up as planned is predicated on symptoms stability and/or acceptable test results. Patient is urged to call in sooner should problems arise or if there is no improvement in cardiac symptoms. ER warning signs and symptoms explained and patient verbalized understanding. My diagnostic impression and treatment plans were discussed at length with the patient and family member present. All side effects as well as drug-drug interactions and risks discussed at length. Ample opportunity was offered and encouraged to ask questions during this visit and patient and her appreciated the answers given by me and verbzalised statisfcation in the answers given. We reviewed the [place] [employer] recommendations for reduction of overall cardio vascular risk. The importance of monitoring the blood pressure carefully both at home on regular basis along with other physicians appointment was stressed in detail. In addition we discussed target LDL levels for optimal risk reduction. It was advised that to daily physical activity be performed with 30 minutes of sustained exercise for both cardio vascular fitness and improvement for generalized medical health and well-being. Thank you for allowing us to participate in the care of Jenni Draper. If you have any questions or concerns please feel free to call our office at [phone]. I would be happy to be of further assistance for Jenni Draper wellbeing. Kevin Hines MD Pulmonologist, Division of Cardiology [facility] documented in this encounter Plan of Treatment Date Type Specialty Care Team Description 12/19/2019 Hospital Encounter Cardiac Electrophysiology Gucci Fitzgerald MD [address] [place] [address] Anesthesia-Yana, Ep Lab Outpt-[facility]ana, Ep Lab 01/17/2020 Nurse Visit Cardiology Visit, Adc Nurse 04/10/2020 Office Visit Cardiology Nvai Hines MD [address] [place] [address] [place] [id number] Health Maintenance Due Date Last Done Comments VARICELLA VACCINES (1 of 2 - 2-dose childhood series) 1982 DTaP,Tdap,and Td Vaccines (1 - Tdap) 1992 PAP SMEAR 06/21/2007 06/21/2004 INFLUENZA VACCINE (#1) 2019 PNEUMOCOCCAL 0-64 YEARS COMBINED SERIES Completed 06/23/20 17 documented as of this encounter Implants Implanted Type Area Brand Marketing Specialist Device Identifier Shelf Exp iration Model / Serial Date / Lot Pacemaker documented as of this encounter Results DIGOXIN, LEVEL (12/10/2019 3:13 PM CDT) Pathologist Sig nature DIGOXIN <0.4 (L) 0.8 - 1.6 ng/mL [facility] Specimen Blood Narrative Performed At Arrythmias: 1.5 - 2.0 ng/m L [facility] Toxic Range: Greater than or equal to 2.4 ng/mL Performing Organization Address City/State/Zipcode Phone Number [facility] CLIA: [id number], [address] [place], [place] [address] BASIC METABOLIC PANEL (NA, K, CL, CO2, GLUCOSE, BUN, CREATININE, CA) (12/10/2019 3:13 PM CDT) Pathologist Sig nature NA 141 135 - 145 mmol/L [facility] K 4.2 3.5 - 5.0 mmol/L [facility] CL 102 98 - 108 mmol/L [facility] CO2 TOTAL 29 23 - 31 mmol/L [facility] AGAP 10 2 - 16 [facility] BUN 11 7 - 23 mg/dL [facility] GLUCOSE 79 70 - 110 mg/dL [facility] CREATININE 0.60 0.50 - 1.04 [facility] mg/dL [facility] CALCIUM 10.2 8.6 - 10.6 mg/dL [facility] eGFR Calculation 111.9 mL/min/1.73m2 [facility] (Non-) [facility] LABORATOR Y eGFR Calculation 135.6 mL/min/1.73m2 [facility] ([facility] [place]) [facility] Specimen Blood Narrative Performed At Association of Glomerular Filtration Rate (GFR) [facility] and Staging of Kidney Disease* + [...] abnormalities in imaging tests). Performing Organization Address City/State/Zipcode Phone Number [facility] CLIA: [id number], [address] [place], [place] [address] documented in this encounter Visit Diagnoses Diagnosis Palpitations - Primary Inappropriate sinus tachycardia Other specified cardiac dysrhythmias Sinus tachycardia Other specified cardiac dysrhythmias Sick sinus syndrome Sinoatrial node dysfunction Atypical chest pain Other chest pain Essential hypertension Unspecified essential hypertension History of DVT (deep vein thrombosis) Personal history of venous thrombosis an d embolism PAF (paroxysmal atrial fibrillation) Atrial fibrillation Dizzy spells Dizziness and giddiness documented in this encounter Insurance Payer Benefit Plan / Subscriber ID Effective Phone Address T e Group Dates LYNDSEY SOLORIO xxxxxxxxx 2011-[employer]in [place] [address] MANAGED MEDICAID [place], [place] documented as of this encounter
--- OUTSIDE RECORDS SUMMARY | 2020-02-10 15:31 | XMS REPORT | Summary of Care ---
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 Lab tachycardia Building Phlebotomy Lab Professional Office Building [address] [facility] , [address] [place] [address] Allergies Active Allergy Reactions Severity Noted Date [...] Added automatically from request for yara arslan [id number] Abdominal pain, unspecified abdominal location 018 Overview: Added automatically from request for yara arslan [id number] Nausea and vomiting, intractability of vomiting not sp ecified, unspecified 07/13/2018 vomiting type Overview: Added automatically from request for yara arslan [id number] Chest pain 04/27/2018 Essential hypertension 04/27/2018 Pacemaker 04/27/2018 PAF (paroxysmal atrial fibrillation) 04/27/2018 History of cardiac pacemaker in situ 08/23/2017 Tachycardia, unspecified 06/22/2017 Elevated liver enzymes 07/23/2014 Pseudoseizure 04/15/2014 Left sided numbness 03/22/2014 Prediabetes 09/24/2013 Loss of weight 09/24/2013 Hypothyroidism 09/24/2013 Overview: ICD10 Diagnosis Term Nnps Utility Hypoglycemia 08/21/2013 Overview: ICD10 Diagnosis Term Nnps Utility documented as of this encounter (statuses [...] Team Description 12/19/2019 Hospital Encounter Cardiac Electrophysiology Car Gucci baca MD [address] [place], [place] [phone] Anesthesia-Yana, Ep Lab Outpt-Yana, Ep Lab 01/17/2020 Nurse Visit Cardiology Visit, Adc Nurse 04/10/2020 Office Visit Cardiology Navi Hines MD [address] [place] [address] Health Maintenance Due Date Last Done Comments VARICELLA VACCINES (1 of 2 - 2-dose childhood series) 1982 DTaP,Tdap,and Td Vaccines (1 - Tdap) 1992 PAP SMEAR 06/21/2007 06/21/2004 INFLUENZA VACCINE (#1) 2019 PNEUMOCOCCAL 0-64 YEARS COMBINED SERIES Completed 06/23/20 17 documented as of this encounter Implants Implanted Type Area Crib Pad Maker Device Identifier Shelf Exp iration Model / Serial Date / Lot Pacemaker documented as of this encounter Results Not on filedocumented in this encounter Visit Diagnoses Diagnosis Inappropriate sinus tachycardia Other specified cardiac dysrhythmias documented in this encounter Insurance Payer Benefit Plan / Subscriber ID Effective Phone Address T e Group Dates LYNDSEY SOLORIO xxxxxxxxx 2011-[employer] [facility] [place] [address] [place] MED[place] documented as of this encounter
--- OUTSIDE RECORDS SUMMARY | 2020-02-10 15:32 | XMS REPORT | Summary of Care ---
:1980 Author Organization [facility] [employer] Address [address] [place] [address] Care Team Providers Name Role Phone Diya Mora MD Primary Care Provider Lila Reyes Insurance Hmo Reason for Visit Reason Comments Results Encounter Details Date Type Department Care Team Description 12/13/2019 Telephone [facility] Cardiology- Navi Hines MD Results [place] [address] [facility], [facility] [address] [place] [address] [place] [address] [phone] Allergies Active Allergy Reactions Severity Noted Date [...] as of this encounter (statuses as of 12/13/2019) Medications Medication Sig Dispensed Refills Start Date [...] hypertension cyclobenzaprine 5 mg Take 1 tablet by [...] Radicular (scale 4-6). pain in left arm apixaban (ELIQUIS) 5 mg Take 1 tablet by 180 tablet 3 12/10/19 20 Active tabletIndications: PAF mouth 2 (two) times daily. Indications: PAF carvediloL 25 mg Take 1 tablet by 180 tablet 3 12/10/2019 Active tabletIndications: mouth 2 (two) History of DVT (deep times daily with vein thrombosis), Sick meals. sinus syndrome digoxin 250 mcg (0.25 Take 1 tablet by 90 tablet 1 12/10/2019 Active mg) tabletIndications: mouth daily. Inappropriate sinus tachycardia, Sinus tachycardia, Sick sinus syndrome, Palpitations, Atypical chest pain, Essential hypertension, History of DVT (deep vein thrombosis), PAF (paroxysmal atrial fibrillation), Dizzy spells documented as of this encounter (statuses as of 12/13/2019) Active Problems Problem Noted Date Syncope 10/29/2019 [...] Added automatically from request for yara arslan [id number] Abdominal pain, unspecified abdominal location 018 Overview: Added automatically from request for yara arslan [id number] Nausea and vomiting, intractability of vomiting not sp ecified, unspecified 07/13/2018 vomiting type Overview: Added automatically from request for yara arslan [id number] Chest pain 04/27/2018 Essential hypertension 04/27/2018 Pacemaker 04/27/2018 PAF (paroxysmal atrial fibrillation) 04/27/2018 History of cardiac pacemaker in situ 08/23/2017 Tachycardia, unspecified 06/22/2017 Elevated liver enzymes 07/23/2014 Pseudoseizure 04/15/2014 Left sided numbness 03/22/2014 Prediabetes 09/24/2013 Loss of weight 09/24/2013 Hypothyroidism 09/24/2013 Overview: ICD10 Diagnosis Term Associate Application Developer Utility Hypoglycemia 08/21/2013 Overview: ICD10 Diagnosis Term Associate Application Developer Utility documented as of this encounter (statuses as of 12/13/2019) Resolved Problems Problem Noted Date Resolved Date Metabolic syndrome X 07/23/2014 07/23/2014 documented as of this encounter (statuses as of 12/13/2019) Immunizations Name Administration Dates Next Due Pneumococcal [...] Treatment Date Type Specialty Care Team Description 12/11/2019 Anesthesia Event Cardiac Electrophysiology Abimbola Vick RN [address] [place] [address] 12/19/2019 Hospital Encounter Cardiac Electrophysiology Gucci Fitzgerald MD [address] [place] [address] Anesthesia-Yana, Ep Lab Outpt-Yana, Ep Lab 01/17/2020 Nurse Visit Cardiology Visit, Adc Nurse 04/10/2020 Office Visit Cardiology Navi Hines MD [address] [place] [phone] Health Maintenance Due Date Last Done Comments VARICELLA VACCINES (1 of 2 - 2-dose childhood series) 1982 DTaP,Tdap,and Td Vaccines (1 - Tdap) 1992 PAP SMEAR 06/21/2007 06/21/2004 INFLUENZA VACCINE (#1) 2019 PNEUMOCOCCAL 0-64 YEARS COMBINED SERIES Completed 06/23/20 17 documented as of this encounter Implants Implanted Type Area Account Analyst Device Identifier Shelf Exp iration Model / Serial Date / Lot Pacemaker documented as of this encounter Results Not on filedocumented in this encounter Insurance Payer Benefit Plan / Subscriber ID Effective Phone Address T ype Group Dates LYNDSEY SOLORIO xxxxxxxxx 2011-[place] [address] [place] Medic [facility] [place] [address] MANAGED MEDICAID [place] documented as of this encounter
--- OUTSIDE RECORDS SUMMARY | 2020-02-10 15:32 | XMS REPORT | Summary of Care ---
:1980 Author Organization [facility] Address [address] [place] [address] Care Team Providers Name Role Phone Diya [...] IM-CARDIOVASCULAR DISEASE; 4-6 Weeks MD [facility] Cardiology [address] [place] [phone] Encounter Details Date Type Department Care Team Description 12/10/2019 Office Visit [facility] Navi Hines Palpitations (Primary Dx); Cardiology- Nydia Merida MD Inappropriate sinus tachycardia; [address] Sinus tachycardia; Drive, [address] Sick sinus syndrome; [place], [place] Atypical chest pain; [phone] Essential hypertension; [phone] History of DVT (deep vein thrombosis); [phone] PAF (paroxysmal atrial fibrillation); (Fax) Dizzy spells [...] Added automatically from request for yara mcdaniels [id number] Abdominal pain, unspecified abdominal location 018 Overview: Added automatically from request for yara mcdaniels [id number] Nausea and vomiting, intractability of vomiting not sp ecified, unspecified 07/13/2018 vomiting type Overview: Added automatically from request for yara mcdaniels [id number] Chest pain 04/27/2018 Essential hypertension 04/27/2018 Pacemaker 04/27/2018 PAF (paroxysmal atrial fibrillation) 04/27/2018 History of cardiac pacemaker in situ 08/23/2017 Tachycardia, unspecified 06/22/2017 Elevated liver enzymes 07/23/2014 Pseudoseizure 04/15/2014 Left sided numbness 03/22/2014 Prediabetes 09/24/2013 Loss of weight 09/24/2013 Hypothyroidism 09/24/2013 Overview: ICD10 Diagnosis Term Relationship Mgr Utility Hypoglycemia 08/21/2013 Overview: ICD10 Diagnosis Term Relationship Mgr Utility documented as of this encounter (statuses [...] Body Mass Index 22.38 11/26/2019 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 She was given IV digoxin for abnormal heart rhythm labelled as "VT" and developed digoxin toxicity. Transferred to [facility]. Coreg/dig was DC. Toprol XL was started. [...] and the entire system was removed in [facility]. She had IV antibiotics with IV vancomycin [...] pericardium. 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 AT/AF burden: < 1 % 6 episodes of AMS: 8 high V rate. All appears to sinus tachycardia. Possibility of SVT cant be ruled out. Rates at 180 bpm. EGM reviewed. Recommendations: Normal functioning device and leads. Follow up in 6 months. Recommended to call tech services to trouble shoot the [place] home setup for proper transmission. Echo 01/2018 [...] 2017 was reviewed. Patient was referred to [facility] on September 05, 2017 for evaluation of [...] INSERTION 10/2017 [facility] [place]; Dr Imtiaz Soto, [facility], inserted twice Family History Problem Relation Age [...] file Gets together: Not on file Attends christian service: Not on file Active member of [...] per old records: On Eliquis. 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 Dyslipiedemia: on lipitor 10 mg daily [...] in the answers given. We reviewed the [place] [employer] recommendations for reduction of overall [...] feel free to call our office at [phone]. I would be happy to be of further assistance for Jenni Draper wellbeing. Kevin Hines MD Loan Auditor, Division of Cardiology [facility] documented in this encounter Plan of Treatment Date Type Specialty Care Team Description 12/19/2019 Hospital Encounter Cardiac Electrophysiology Gucci Fitzgerald MD [address] [place] [address] Anesthesia-Yana, Ep Lab Outpt-Yana, Ep Lab 01/17/2020 Nurse Visit Cardiology Visit, Adc Nurse 04/10/2020 Office Visit Cardiology Navi Hines MD [address] [place] [address] Health Maintenance Due Date Last Done Comments VARICELLA VACCINES (1 of 2 - 2-dose childhood series) 1982 DTaP,Tdap,and Td Vaccines (1 - Tdap) 1992 PAP SMEAR 06/21/2007 06/21/2004 INFLUENZA VACCINE (#1) 2019 PNEUMOCOCCAL 0-64 YEARS COMBINED SERIES Completed 06/23/20 17 documented as of this encounter Implants Implanted Type Area Concrete Form Setter Device Identifier Shelf Exp iration Model / Serial Date / Lot Pacemaker documented as of this encounter Results DIGOXIN, LEVEL (12/10/2019 3:13 PM CDT) Pathologist Sig nature DIGOXIN <0.4 (L) 0.8 - 1.6 ng/mL [facility] Specimen Blood Narrative Performed At Arrythmias: 1.5 - 2.0 ng/m L [facility] Toxic Range: Greater than or equal to 2.4 ng/mL Performing Organization Address City/State/Zipcode Phone Number [facility] CLIA: [id number], [address] [place], [place] [address] BASIC METABOLIC PANEL (NA, K, CL, CO2, GLUCOSE, BUN, CREATININE, CA) (12/10/2019 3:13 PM CDT) Pathologist Sig nature NA 141 135 - 145 mmol/L [facility] K 4.2 3.5 - 5.0 mmol/L [facility] CL 102 98 - 108 mmol/L [facility] CO2 TOTAL 29 23 - 31 mmol/L [facility] AGAP 10 2 - 16 [facility] BUN 11 7 - 23 mg/dL [facility] GLUCOSE 79 70 - 110 mg/dL [facility] CREATININE 0.60 0.50 - 1.04 [facility] mg/dL [facility] CALCIUM 10.2 8.6 - 10.6 mg/dL [facility] eGFR Calculation 111.9 mL/min/1.73m2 [facility] (Non-) [facility] LABORATOR Y eGFR Calculation 135.6 mL/min/1.73m2 [facility] ([facility]) [facility] Specimen Blood Narrative Performed At Association of Glomerular Filtration Rate (GFR) [facility] and Staging of Kidney Disease* [...] tests). Performing Organization Address City/State/Zipcode Phone Number [facility] CLIA: [id number], [address] [place], [place] [address] documented [...] SOLORIO xxxxxxxxx 2011-Presramin [place] [address] MANAGED MEDICAID [place] documented as of this encounter
--- OUTSIDE RECORDS SUMMARY | 2020-02-10 15:33 | XMS REPORT | Summary of Care ---
:1980 Author Organization [facility] Address [address] [place] [address] Care Team Providers Name Role Phone Diya Mora MD Primary Care Provider Lila Reyes Insurance Hmo Reason for Visit Reason Comments Appointment EPS+/-ablation Encounter Details Date Type Department Care Team Description 12/12/2019 Telephone [facility] [place] Appointment Electrophysiology Gucci Ibarra MD (EPS+/-ablation) The [address] [address] [address], [address] [place] [address] Allergies Active Allergy Reactions Severity Noted Date [...] as of this encounter (statuses as of 12/16/2019) Medications Medication Sig Dispensed Refills Start Date [...] as of this encounter (statuses as of 12/16/2019) Active Problems Problem Noted Date Syncope 10/29/2019 [...] Added automatically from request for yara arslan [id number] Abdominal pain, unspecified abdominal location 018 Overview: Added automatically from request for yara arslan [id number] Nausea and vomiting, intractability of vomiting not sp ecified, unspecified 07/13/2018 vomiting type Overview: Added automatically from request for yara arslan [id number] Chest pain 04/27/2018 Essential hypertension 04/27/2018 Pacemaker 04/27/2018 PAF (paroxysmal atrial fibrillation) 04/27/2018 History of cardiac pacemaker in situ 08/23/2017 Tachycardia, unspecified 06/22/2017 Elevated liver enzymes 07/23/2014 Pseudoseizure 04/15/2014 Left sided numbness 03/22/2014 Prediabetes 09/24/2013 Loss of weight 09/24/2013 Hypothyroidism 09/24/2013 Overview: ICD10 Diagnosis Term Improvement Director Utility Hypoglycemia 08/21/2013 Overview: ICD10 Diagnosis Term Improvement Director Utility documented as of this encounter (statuses as of 12/16/2019) Resolved Problems Problem Noted Date Resolved Date Metabolic syndrome X 07/23/2014 07/23/2014 documented as of this encounter (statuses as of 12/16/2019) Immunizations Name Administration Dates Next Due Pneumococcal [...] Anesthesia Event Cardiac Electrophysiology Abimbola Vick RN [address] [place] [address] 12/19/2019 Hospital Encounter Cardiac Electrophysiology Gucci Fitzgerald MD [address] [place] [address] Anesthesia-Yana, Ep Lab Outpt-Yana, Ep Lab 01/17/2020 Nurse Visit Cardiology Visit, Adc Nurse 04/10/2020 Office Visit Cardiology Navi Hines MD [address] [address] Health Maintenance Due Date Last Done Comments VARICELLA VACCINES (1 of 2 - 2-dose childhood series) 1982 DTaP,Tdap,and Td Vaccines (1 - Tdap) 1992 PAP SMEAR 06/21/2007 06/21/2004 INFLUENZA VACCINE (#1) 2019 PNEUMOCOCCAL 0-64 YEARS COMBINED SERIES Completed 06/23/20 17 documented as of this encounter Implants Implanted Type Area Linen Room Worker Device Identifier Shelf Exp iration Model / Serial Date / Lot Pacemaker documented as of this encounter Results Not on filedocumented in this encounter Insurance Payer Benefit Plan / Subscriber ID Effective Phone Address T [facility] Group Dates LYNDSEY SOLORIO [facility] [place] [address] MANAGED MEDICAID [place] documented as of this encounter
--- OUTSIDE RECORDS SUMMARY | 2020-02-10 15:33 | XMS REPORT | Summary of Care ---
:1980 Author Organization [facility] Address [address] [place] [address] Care Team Providers Name Role Phone Diya Mora MD Primary Care Provider Lila Reyes Insurance Hmo Reason for Visit Reason Comments Follow-up Encounter Details Date Type Department Care Team Description 12/16/2019 Telephone [facility] Cardiology, Gucci Umaña, Follow-up [facility] [address] [place] [address] [address] [place] [address] [place] [address] [phone] Allergies Active Allergy Reactions Severity Noted Date [...] 12/16/2019) Medications Medication Sig Dispensed Refills Start End [...] mcg Take 1 tablet 90 tablet 1 12/16/19 Discontinued (0.25 mg) by mouth 0 20 (Alternate tabletIndications: daily. t herapy) Inappropriate sinus tachycardia, Sinus tachycardia, Sick sinus [...] Added automatically from request for yara arslan [id number] Abdominal pain, unspecified abdominal location 018 Overview: Added automatically from request for yara arslan [id number] Nausea and vomiting, intractability of vomiting not sp ecified, unspecified 07/13/2018 vomiting type Overview: Added automatically from request for yara arslan [id number] Chest pain 04/27/2018 Essential hypertension 04/27/2018 Pacemaker 04/27/2018 PAF (paroxysmal atrial fibrillation) 04/27/2018 History of cardiac pacemaker in situ 08/23/2017 Tachycardia, unspecified 06/22/2017 Elevated liver enzymes 07/23/2014 Pseudoseizure 04/15/2014 Left sided numbness 03/22/2014 Prediabetes 09/24/2013 Loss of weight 09/24/2013 Hypothyroidism 09/24/2013 Overview: ICD10 Diagnosis Term Oim Architect Utility Hypoglycemia 08/21/2013 Overview: ICD10 Diagnosis Term Oim Architect Utility documented as of this encounter (statuses [...] Event Cardiac Electrophysiology Abimbola Vick RN [address] [place] [address] 12/19/2019 Hospital Encounter Cardiac Electrophysiology Gucci Fitzgerald MD [address] [place] [address] Anesthesia-Yana, Ep Lab Outpt-Yana, Ep Lab 01/17/2020 Nurse Visit Cardiology Visit, Adc Nurse 04/10/2020 Office Visit Cardiology Navi Hines MD [address] [place] [address] Health Maintenance Due Date Last Done Comments VARICELLA VACCINES (1 of 2 - 2-dose childhood series) 1982 DTaP,Tdap,and Td Vaccines (1 - Tdap) 1992 PAP SMEAR 06/21/2007 06/21/2004 INFLUENZA VACCINE (#1) 2019 PNEUMOCOCCAL 0-64 YEARS COMBINED SERIES Completed 06/23/20 17 documented as of this encounter Implants Implanted Type Area Commutator Repairer Device Identifier Shelf Exp iration Model / Serial Date / Lot Pacemaker documented as of this encounter Results Not on filedocumented in this encounter Insurance Payer Benefit Plan / Subscriber ID Effective Phone Address T [facility] Group Dates LYNDSEY SOLORIO xxxxxxxxx 2011-Kobe P O BOX Medic [facility] [place] [address] MA[place]ED MEDICA[place] documented as of this encounter
--- OUTSIDE RECORDS SUMMARY | 2020-02-10 15:34 | XMS REPORT | Summary of Care ---
:1980 Author Organization [facility] Address [address] [place] [address] Care Team Providers Name Role Phone Diya Mora MD Primary Care Provider Lila Reyes Insurance Hmo Encounter Details Date Type Department Care Team Description 12/18/2019 Patient Secure [facility] Primary Diya Mora, [facility] [address] [address] [place] [id number] [phone] Allergies Active Allergy Reactions Severity Noted Date [...] as of this encounter (statuses as of 12/18/2019) Medications Medication Sig Dispensed Refills Start Date [...] with vein thrombosis), Sick meals. sinus syndrome documented as of this encounter (statuses as of 12/18/2019) Active Problems Problem Noted Date Syncope 10/29/2019 [...] Added automatically from request for yara arslan [id number] Abdominal pain, unspecified abdominal location 018 Overview: Added automatically from request for yara arslan [id number] Nausea and vomiting, intractability of vomiting not sp ecified, unspecified 07/13/2018 vomiting type Overview: Added automatically from request for yara arslan [id number] Chest pain 04/27/2018 Essential hypertension 04/27/2018 Pacemaker 04/27/2018 PAF (paroxysmal atrial fibrillation) 04/27/2018 History of cardiac pacemaker in situ 08/23/2017 Tachycardia, unspecified 06/22/2017 Elevated liver enzymes 07/23/2014 Pseudoseizure 04/15/2014 Left sided numbness 03/22/2014 Prediabetes 09/24/2013 Loss of weight 09/24/2013 Hypothyroidism 09/24/2013 Overview: ICD10 Diagnosis Term Torch Solderer Utility Hypoglycemia 08/21/2013 Overview: ICD10 Diagnosis Term Torch Solderer Utility documented as of this encounter (statuses as of 12/18/2019) Resolved Problems Problem Noted Date Resolved Date Metabolic syndrome X 07/23/2014 07/23/2014 documented as of this encounter (statuses as of 12/18/2019) Immunizations Name Administration Dates Next Due Pneumococcal [...] Event Cardiac Electrophysiology Abimbola Vick RN [address] [place] [address] 12/19/2019 Hospital Encounter Cardiac Electrophysiology Gucci Fitzgerald MD [address] [place] [address] Anesthesia-Yana, Ep Lab Outpt-Yana, Ep Lab 01/17/2020 Nurse Visit Cardiology Visit, Adc Nurse 04/10/2020 Office Visit Cardiology Navi Hines MD [address] [address] Health Maintenance Due Date Last Done Comments VARICELLA VACCINES (1 of 2 - 2-dose childhood series) 1982 DTaP,Tdap,and Td Vaccines (1 - Tdap) 1992 PAP SMEAR 06/21/2007 06/21/2004 INFLUENZA VACCINE (#1) 2019 PNEUMOCOCCAL 0-64 YEARS COMBINED SERIES Completed 06/23/20 17 documented as of this encounter Implants Implanted Type Area Dry Wall Applicator Device Identifier Shelf Exp iration Model / Serial Date / Lot Pacemaker documented as of this encounter Results Not on filedocumented in this encounter Insurance Payer Benefit Plan / Subscriber ID Effective Phone Address T [facility] Group Dates LYNDSEY SOLORIO xxxxxxxxx 2011-Kobe Pradhan [facility] [place] [address] MANAGED MEDICAID [place] documented as of this encounter
--- OUTSIDE RECORDS SUMMARY | 2020-02-10 15:34 | XMS REPORT | Summary of Care ---
:1980 Author Organization [facility] Address [address] [place] [address] Care Team Providers Name Role Phone Diya Mora MD Primary Care Provider Lila Reyes Insurance Hmo Reason for Visit Reason Comments Follow-up Encounter Details Date Type Department Care Team Description 12/16/2019 Telephone [facility] Cardiology, Gucci Umaña, Follow-up [facility] [address] [place] [address] [address] [place] [address] [place] [address] [phone] Allergies Active Allergy Reactions Severity Noted Date [...] as of this encounter (statuses as of 12/19/2019) Medications Medication Sig Dispensed Refills Start End [...] as of this encounter (statuses as of 12/19/2019) Active Problems Problem Noted Date Syncope 10/29/2019 [...] Added automatically from request for yara arslan [id number] Abdominal pain, unspecified abdominal location 018 Overview: Added automatically from request for yara arslan [id number] Nausea and vomiting, intractability of vomiting not sp ecified, unspecified 07/13/2018 vomiting type Overview: Added automatically from request for yara arslan [id number] Chest pain 04/27/2018 Essential hypertension 04/27/2018 Pacemaker 04/27/2018 PAF (paroxysmal atrial fibrillation) 04/27/2018 History of cardiac pacemaker in situ 08/23/2017 Tachycardia, unspecified 06/22/2017 Elevated liver enzymes 07/23/2014 Pseudoseizure 04/15/2014 Left sided numbness 03/22/2014 Prediabetes 09/24/2013 Loss of weight 09/24/2013 Hypothyroidism 09/24/2013 Overview: ICD10 Diagnosis Term Paste Maker Utility Hypoglycemia 08/21/2013 Overview: ICD10 Diagnosis Term Paste Maker Utility documented as of this encounter (statuses as of 12/19/2019) Resolved Problems Problem Noted Date Resolved Date Metabolic syndrome X 07/23/2014 07/23/2014 documented as of this encounter (statuses as of 12/19/2019) Immunizations Name Administration Dates Next Due Pneumococcal [...] Treatment Date Type Specialty Care Team Description 01/17/2020 Nurse Visit Cardiology Visit, Adc Nurse 04/10/2020 Office Visit Cardiology Navi Hines MD [address] [place] [address] [place] [phone] Health Maintenance Due Date Last Done Comments VARICELLA VACCINES (1 of 2 - 2-dose childhood series) 1982 DTaP,Tdap,and Td Vaccines (1 - Tdap) 1992 PAP SMEAR 06/21/2007 06/21/2004 INFLUENZA VACCINE (#1) 2019 PNEUMOCOCCAL 0-64 YEARS COMBINED SERIES Completed 06/23/20 17 documented as of this encounter Implants Implanted Type Area Automatic Nailing Machine Feeder Device Identifier Shelf Exp iration Model / Serial Date / Lot Pacemaker documented as of this encounter Results Not on filedocumented in this encounter Insurance Payer Benefit Plan / Subscriber ID Effective Phone Address T [facility] Group Dates LYNDSEY SOLORIO xxxxxxxxx 2011-Kobe PERALTA [facility] [facility] [place] [phone] MA[place]ED MEDICAID [place] documented as of this encounter
--- OUTSIDE RECORDS SUMMARY | 2020-02-10 15:35 | XMS REPORT | Summary of Care ---
:1980 Author Organization [facility] Address [address] [place] [address] Care Team Providers Name Role Phone Diya Mora MD Primary Care Provider Lila Reyes Insurance Hmo Reason for Visit Reason Comments Appointment EPS+/-ablation Encounter Details Date Type Department Care Team Description 12/18/2019 Telephone [facility] [place] Appointment Electrophysiology Gucci Ibarra MD (EPS+/-ablation) The [address] [address] [address], [address] [place] [address] Allergies Active Allergy Reactions [...] 12/19/2019) Medications Medication Sig Dispensed Refills Start Date [...] Added automatically from request for yara arslan [id number] Abdominal pain, unspecified abdominal location 018 Overview: Added automatically from request for yara arslan [id number] Nausea and vomiting, intractability of vomiting not sp ecified, unspecified 07/13/2018 vomiting type Overview: Added automatically from request for yara arslan [id number] Chest pain 04/27/2018 Essential hypertension 04/27/2018 Pacemaker 04/27/2018 PAF (paroxysmal atrial fibrillation) 04/27/2018 History of cardiac pacemaker in situ 08/23/2017 Tachycardia, unspecified 06/22/2017 Elevated liver enzymes 07/23/2014 Pseudoseizure 04/15/2014 Left sided numbness 03/22/2014 Prediabetes 09/24/2013 Loss of weight 09/24/2013 Hypothyroidism 09/24/2013 Overview: ICD10 Diagnosis Term Rfid Strategist Utility Hypoglycemia 08/21/2013 Overview: ICD10 Diagnosis Term Rfid Strategist Utility documented as of this encounter (statuses [...] Cardiology Navi Hines MD [address] [place] [phone] Health Maintenance Due Date Last Done Comments VARICELLA VACCINES (1 of 2 - 2-dose childhood series) 1982 DTaP,Tdap,and Td Vaccines (1 - Tdap) 1992 PAP SMEAR 06/21/2007 06/21/2004 INFLUENZA VACCINE (#1) 2019 PNEUMOCOCCAL 0-64 YEARS COMBINED SERIES Completed 06/23/20 17 documented as of this encounter Implants Implanted Type Area Airline Customer Service Agent Device Identifier Shelf Exp iration Model / Serial Date / Lot Pacemaker documented as of this encounter Results Not on filedocumented in this encounter Insurance Payer Benefit Plan / Subscriber ID Effective Phone Address T ype Group Dates LYNDSEY SOLORIO xxxxxxxxx 2011-Kobe Amaro [employer] [facility] [place] [address] MANAGED MEDICAID [place] documented as of this encounter
--- OUTSIDE RECORDS SUMMARY | 2020-02-10 15:35 | XMS REPORT | Summary of Care ---
:1980 Author Organization [facility] Address [address] [place] [address] Care Team Providers Name Role Phone Diya Mora MD Primary Care Provider Lila Reyes Insurance Hmo Reason for Visit Reason Comments Appointment EPS+/-ablation Encounter Details Date Type Department Care Team Description 12/18/2019 Telephone [facility] [place] Appointment Electrophysiology Gucci Ibarra MD (EPS+/-ablation) The [address] [address], [address] [place] [address] Allergies Active Allergy Reactions [...] as of this encounter (statuses as of 01/22/2020) Medications Medication Sig Dispensed Refills Start Date [...] as of this encounter (statuses as of 01/22/2020) Active Problems Problem Noted Date Syncope 10/29/2019 [...] Added automatically from request for yara arslan [id number] Abdominal pain, unspecified abdominal location 018 Overview: Added automatically from request for yara arslan [id number] Nausea and vomiting, intractability of vomiting not sp ecified, unspecified 07/13/2018 vomiting type Overview: Added automatically from request for yara arslan [id number] Chest pain 04/27/2018 Essential hypertension 04/27/2018 Pacemaker 04/27/2018 PAF (paroxysmal atrial fibrillation) 04/27/2018 History of cardiac pacemaker in situ 08/23/2017 Tachycardia, unspecified 06/22/2017 Elevated liver enzymes 07/23/2014 Pseudoseizure 04/15/2014 Left sided numbness 03/22/2014 Prediabetes 09/24/2013 Loss of weight 09/24/2013 Hypothyroidism 09/24/2013 Overview: ICD10 Diagnosis Term Marketing Content Manager Utility Hypoglycemia 08/21/2013 Overview: ICD10 Diagnosis Term Marketing Content Manager Utility documented as of this encounter (statuses as of 01/22/2020) Resolved Problems Problem Noted Date Resolved Date Metabolic syndrome X 07/23/2014 07/23/2014 documented as of this encounter (statuses as of 01/22/2020) Immunizations Name Administration Dates Next Due Pneumococcal [...] Treatment Date Type Specialty Care Team Description 03/20/2020 Nurse Visit Cardiology Visit, Adc Nurse 04/10/2020 Office Visit Cardiology Navi Hines MD [address] [place] [phone] Health Maintenance Due Date Last Done Comments VARICELLA VACCINES (1 of 2 - 2-dose childhood series) 1982 DTaP,Tdap,and Td Vaccines (1 - Tdap) 1992 PAP SMEAR 06/21/2007 06/21/2004 INFLUENZA VACCINE (#1) 2019 PNEUMOCOCCAL 0-64 YEARS COMBINED SERIES Completed 06/23/20 17 documented as of this encounter Implants Implanted Type Area Jewel Bearing Facer Device Identifier Shelf Exp iration Model / Serial Date / Lot Pacemaker documented as of this encounter Results Not on filedocumented in this encounter Insurance Payer Benefit Plan / Subscriber ID Effective Phone Address T ype Group Dates LYNDSEY SOLORIO xxxxxxxxx 2011-Kobe Amaro [employer] [facility] [place] [address] MANAGED MEDICAID [place] documented as of this encounter
[2020-02-10] MEDS ORDERED: NA CHLORIDE 0.9% 1,000 ML ONE (15:51)
[2020-02-10] MEDS ORDERED: ONDANSETRON 4 MG/2 ML VIAL ONE (15:51)
[2020-02-10] MEDS ORDERED: FENTANYL CITR 100 MCG/2 ML ONE (15:51)
[2020-02-10 15:53] LABS: Absolute Lymphocytes (CBC) 1.6 K/uL (0.7-4.9); Basophils % 0.7 % (0-1.3); Hematocrit 40.7 % (36.0-45.0); Lymphocytes % 29.6 % (15.3-44.8); MPV 8.1 fL (7.6-11.3); RBC Red Blood Cell Count 4.74 M/uL (3.86-4.86)
[2020-02-10 16:06] LABS: ALT/SGPT 28 U/L (12-78); AST/SGOT 20 U/L (15-37); Albumin 3.9 g/dL (3.4-5.0); Alkaline Phosphatase 125 U/L (45-117); BUN Blood Urea Nitrogen 11 mg/dL (7-18); Bicarbonate 29 mmol/L (21-32); Bilirubin Direct < 0.1 mg/dL (0-0.2); Bilirubin Total 0.2 mg/dL (0.2-1.0); Glucose Level 107 mg/dL (74-106); Lipase 110 U/L (73-393); Protein, Total 8.2 g/dL (6.4-8.2); Sodium Level 142 mmol/L (136-145)
--- NOTE | 2020-02-10 16:15 | RAD REPORT ---
EXAM DESCRIPTION: RAD - Chest Single View - 02/10/2020 4:07 pm CLINICAL HISTORY: CHEST PAIN Chest pain. COMPARISON: Chest Single View dated 10/21/2019; Chest Pa And Lat (2 Views) dated 08/13/2019; Chest Pa And Lat (2 Views) dated 04/16/2019; Chest Single View dated 03/03/2019 FINDINGS: Portable technique limits examination quality. The lungs are grossly clear. The heart is normal in size. No displaced fractures.Dual lead pacer sindi ce noted. IMPRESSION: No acute intrathoracic process suspected.
[2020-02-10 16:16] LABS: Protime INR 0.97
--- NOTE | 2020-02-10 16:17 | RAD REPORT ---
EXAM DESCRIPTION: CT - Abdomen Pelvis Wo Contrast - 02/10/2020 4:00 pm CLINICAL HISTORY: Abdominal pain. ABD PAIN COMPARISON: <Comparisons> TECHNIQUE: CT imaging of the abdomen and pelvis was performed without contrast. Solid organ, bowel a nd vascular assessment is limited due to lack of IV and oral contrast. All CT scans are performed using dose optimization technique as appropriate and may include automated exposure control or mA/KV adjustment according to patient size. FINDINGS: The lower lung perdomo are clear.Cholecystectomy clips. The liver, spleen, pancreas, adrenal glands are within normal limits for a limited non-contrast exami nation.Punctate bilateral nephrolithiasis without hydronephrosis. No bowel obstruction, free air, free fluid or abscess. The appendix is normal. The osseous structures are within normal limits. IMPRESSION: Punctate bilateral nephrolithiasis without obstructing calculus noted. A limited non-contrast examination was performed as detailed.
[2020-02-10 16:32] LABS: Magnesium 2.7 mg/dL (1.8-2.4); NT PRO-BNP 64 pg/mL (<125); Troponin (Emerg Dept Use Only) < 0.02 ng/mL (0.0-0.045)
--- NOTE | 2020-02-10 16:53 | ER ---
Nurse's Notes [facility] Name: Jenni Draper Age: 39 yrs Sex: Female : 1980 Arrival Date: 02/10/2020 Time: 14:42 Bed 14 Private MD: Diagnosis: Unspecified abdominal pain Presentation: 02/09 14:58 Chief complaint: Patient states: LUQ pain that radiates to the left upper back, sv vomiting, fever, dizziness started at 0300 today. Reports pain is worse when trying to eat or drink. Tmax 101. Coronavirus screen: Surgical mask placed on patient. Patient moved to private room, placed in contact and droplet isolation with eye protection until further assessment. Patient reports a cough. Patient reports shortness of breath or difficulty breathing. Patient reports a measured and/or subjective temperature greater than 100.4F. Patient denies travel on a cruise ship or to a country the [facility] currently lists as an affected area. Patient denies contact with known and/or suspected case of COVID-19. Ebola Screen: No symptoms or risks identified at this time. Risk Assessment: Do you want to hurt yourself or someone else? Patient reports no desire to harm self or others. Onset of symptoms was February 10, 2020 at 03:00. 14:58 Method Of Arrival: Wheelchair sv 14:58 Acuity: LYUBOV 3 sv 15:01 Initial Sepsis Screen: Does the patient meet any 2 criteria? HR > 90 bpm. No. Patient's sv initial sepsis screen is negative. Does the patient have a suspected source of infection? Yes: Acute abdominal pain. Triage Assessment: 15:04 General: Appears in no apparent distress. uncomfortable, Behavior is calm, cooperative, sv appropriate for age. Pain: Complains of pain in left upper quadrant Pain radiates to left mid back. Neuro: Level of Consciousness is awake, alert, obeys commands. Respiratory: Respiratory effort is even, unlabored. GI: Reports vomiting. 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 - Social history:: Smoking status: Patient denies any tobacco usage or history of. Screenin:31 Abuse screen: Denies threats or abuse. Nutritional screening: No deficits noted. Tuberculosis screening: No symptoms or risk factors identified. Fall Risk None identified. Assessment: 15:15 General: Appears uncomfortable, Behavior is calm, cooperative. Pain: Complains of pain ah in left upper quadrant Pain radiates to back. Neuro: Level of Consciousness is awake, alert, Oriented to person, place, time, situation. Cardiovascular: Heart tones S1 S2 present Capillary refill < 3 seconds Patient's skin is warm and dry. Respiratory: Airway is patent Respiratory effort is even, unlabored, Respiratory pattern is regular, symmetrical. GI: Bowel sounds present X 4 quads. Abdomen is tender to palpation. 15:45 Reassessment: Fluids started at this time and Sofran given IVP. IV went bad at this ah time. CT took Pt to radiology for scan at this time. 16:00 Reassessment: Attempted to start IV in L AC, Vein blew and not successful. 17:00 Reassessment: Discharge instructions given to pt and voiced understanding. Vital Signs: 15:01 BP 108 / 74; Pulse 113; Resp 18; Temp 99.3(O); Pulse Ox 99% ; Weight 52.16 kg; Height 4 sv ft. 11 in. (149.86 cm); 16:15 BP 106 / 74; Pulse 101; Resp 18; Pulse Ox 100% ; ah 17:15 BP 119 / 97; Pulse 102; Resp 16; Pulse Ox 99% ; ah 15:01 Body Mass Index 23.23 (52.16 kg, 149.86 cm) sv ED Course: 14:42 Patient arrived in ED. mr 15:00 Triage completed. sv 15:03 Arm band placed on. sv 15:04 Zurdo Prasad, ARELIS is PHCP. pm1 15:04 Tanner Robbins MD is Attending Physician. pm1 15:06 Angelina Ulrich, RN is Primary Nurse. ah 15:42 Initial lab(s) drawn, by ut, sent to lab. Inserted saline lock: 22 gauge in right lt1 antecubital area, using aseptic technique. 16:01 CT Abd/Pelvis - Without Contrast In Process Unspecified. EDMS 16:05 XRAY Chest (1 view) In Process Unspecified. EDMS 17:32 Patient has correct armband on for positive identification. Placed in gown. Bed in low ah position. 17:32 No provider procedures requiring assistance completed. Missed attempt(s): 14 gauge in ah left antecubital area. 22 gauge Bleeding controlled, band aid applied, catheter tip intact. 17:32 Patient did not have IV access during this emergency room visit. ah Administered Medications: 15:45 Drug: Zofran (Ondansetron) 4 mg Route: IVP; Site: right antecubital; 16:59 Not Given (ORDER CHANGED, iv NOT GOOD): fentaNYL (PF) 50 mcg IVP once; RASS on ADMIN: Combtv4, Very Agttd3, Agttd2, Rstlss1, AlertClm0, Drwsy-1, Lt Sdtn-2, Mod Sdtn-3, Dp Sdtn-4, UnArsble-5 17:00 Drug: fentaNYL (PF) 50 mcg Route: IM; Site: left ventrogluteal; 18:00 Follow up: Response: No adverse reaction 17:01 Not Given (iv WENT BAD): NS 0.9% 1000 ml IV at 1000 ml once 17:02 Drug: GI Cocktail without - (Maalox Suspension 30 ml, Lidocaine Liquid 2 % 15 ah ml) Route: PO; 18:00 Follow up: Response: No adverse reaction Outcome: 16:53 Discharge ordered by . pm1 17:31 Discharged to home ambulatory. 17:31 Condition: good 17:31 Discharge instructions given to patient, Instructed on discharge instructions, follow up and referral plans. medication usage, Demonstrated understanding of instructions, follow-up care, medications, Prescriptions given X 2. 17:33 Patient left the ED. Signatures: Dispatcher [employer] Patti Hernandez, RN RN Ailyn Bedoya mr Shanice Zurdo, ARELIS TROLLEY CAR OVERHAULER pm1 Sarah Davila lt1 Angelina Ulrich RN RN Corrections: (The following items were deleted from the chart) 15:04 15:01 Resp 18bpm; Pulse Ox 99%; Temp 99.3F Oral; 52.16 kg; Height 4 ft. 11 in.; BMI: sv 23.2; sv
--- NOTE | 2020-02-10 16:54 | EDPHYS ---
Physician Documentation [facility] Name: Jenni Draper Age: 39 yrs Sex: Female : 1980 Arrival Date: 02/10/2020 Time: 14:42 Bed 14 Private MD: ED Physician Tanner Robbins HPI: 02/09 16:06 This 39 yrs old Female presents to ER via Wheelchair with complaints of pm1 Abdominal Pain, Back Pain, Nausea/Vomiting. 16:06 The patient presents with abdominal pain in the left upper quadrant. Onset: The pm1 symptoms/episode began/occurred 2 day(s) ago. The symptoms radiate to left back. Associated signs and symptoms: Pertinent positives: nausea and vomiting, chest pain, fever, Pertinent negatives: dysuria, shortness of breath. The symptoms are described as achy. Modifying factors: the symptoms are aggravated by food. Severity of pain: in the emergency department the pain is actually worse. It is unknown whether or not the patient has recently seen a physician. Patient with complaints of LUQ pain that is caused by eating food. Patient contacted her PCP and instructed to report to the ER for possible pancreatitis. 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 - Social history:: Smoking status: Patient denies any tobacco usage or history of. ROS: 16:06 Neck: Negative for injury, pain, and swelling, Respiratory: Negative for shortness of pm1 breath, cough, wheezing, and pleuritic chest pain. 16:06 : Negative for injury, bleeding, discharge, and swelling, MS/Extremity: Negative for injury and deformity, Skin: Negative for injury, rash, and discoloration, Neuro: Negative for headache, weakness, numbness, tingling, and seizure. 16:06 Constitutional: Positive for fever, Negative for poor PO intake. 16:06 Cardiovascular: Positive for chest pain, Negative for edema, palpitations. 16:06 Abdomen/GI: Positive for abdominal pain, nausea and vomiting, Negative for diarrhea, constipation. 16:06 Back: Positive for of the left mid back, pain. Exam: 16:06 Constitutional: This is a well developed, well nourished patient who is awake, alert, pm1 and in no acute distress. Head/Face: Normocephalic, atraumatic. Neck: Trachea midline, no thyromegaly or masses palpated, and no cervical lymphadenopathy. Supple, full range of motion without nuchal rigidity, or vertebral point tenderness. No Meningismus. Chest/axilla: Normal chest wall appearance and motion. Nontender with no deformity. No lesions are appreciated. 16:06 Back: No spinal tenderness. No costovertebral tenderness. Full range of motion. Skin: Warm, dry with normal turgor. Normal color with no rashes, no lesions, and no evidence of cellulitis. MS/ Extremity: Pulses equal, no cyanosis. Neurovascular intact. Full, normal range of motion. 16:06 Cardiovascular: Exam negative for acute changes, Rate: normal, Rhythm: regular, Pulses: no pulse deficits are appreciated. 16:06 Respiratory: Exam negative for acute changes, respiratory distress, shortness of breath. 16:06 Abdomen/GI: Inspection: abdomen appears normal, Palpation: soft, mild abdominal tenderness, in the left upper quadrant, mass, is not appreciated, rebound tenderness, is not appreciated. 16:06 Neuro: Exam negative for acute changes, Orientation: is normal, Motor: is normal, moves all fours. Vital Signs: 15:01 BP 108 / 74; Pulse 113; Resp 18; Temp 99.3(O); Pulse Ox 99% ; Weight 52.16 kg; Height 4 sv ft. 11 in. (149.86 cm); 16:15 BP 106 / 74; Pulse 101; Resp 18; Pulse Ox 100% ; ah 17:15 BP 119 / 97; Pulse 102; Resp 16; Pulse Ox 99% ; ah 15:01 Body Mass Index 23.23 (52.16 kg, 149.86 cm) sv MDM: 15:24 Patient medically screened. pm1 16:51 Data reviewed: vital signs. Data interpreted: Pulse oximetry: on room air is 99 %. pm1 Interpretation: normal. 16:52 Counseling: I had a detailed discussion with the patient and/or guardian regarding: the pm1 historical points, exam findings, and any diagnostic results supporting the discharge/admit diagnosis, lab results, radiology results, the need for outpatient follow up, for definitive care, a immigration consultant, to return to the emergency department if symptoms worsen or persist or if there are any questions or concerns that arise at home. 16:56 ED course: [employer] aware reviewed. pm02/09 15:25 Order name: Basic Metabolic Panel; Complete Time: 16:14 pm02/09 15:25 Order name: CBC with Diff; Complete Time: 16:14 pm02/09 15:25 Order name: Hepatic Function; Complete Time: 16:14 pm02/09 15:25 Order name: Lipase; Complete Time: 16:14 pm02/09 15:48 Order name: Magnesium; Complete Time: 16:29 pm02/09 15:48 Order name: NT PRO-BNP; Complete Time: 16:29 pm02/09 15:27 Order name: CT Abd/Pelvis - Without Contrast; Complete Time: 16:23 pm02/09 15:48 Order name: PT-INR; Complete Time: 16:23 pm02/09 15:48 Order name: Troponin (emerg Dept Use Only); Complete Time: 16:29 pm02/09 15:48 Order name: XRAY Chest (1 view); Complete Time: 16:23 pm02/09 15:25 Order name: IV Saline Lock; Complete Time: 15:42 pm02/09 15:25 Order name: Labs collected and sent; Complete Time: 15:42 pm02/09 15:48 Order name: EKG; Complete Time: 15:59 pm02/09 15:48 Order name: Cardiac monitoring; Complete Time: 16:49 pm1 02/09 15:48 Order name: EKG - Nurse/Tech; Complete Time: 16:49 pm1 02/09 15:48 Order name: O2 Per Protocol; Complete Time: 16:35 pm1 02/09 15:48 Order name: O2 Sat Monitoring; Complete Time: 16:35 pm1 EC:51 Rate is 98 beats/min. Rhythm is regular. No Q waves. T waves are Normal. No ST changes pm1 noted. Clinical impression: Normal ECG. Administered Medications: 15:45 Drug: Zofran (Ondansetron) 4 mg Route: IVP; Site: right antecubital; 16:59 Not Given (ORDER CHANGED, iv NOT GOOD): fentaNYL (PF) 50 mcg IVP once; RASS on ADMIN: ah Combtv4, Very Agttd3, Agttd2, Rstlss1, AlertClm0, Drwsy-1, Lt Sdtn-2, Mod Sdtn-3, Dp Sdtn-4, UnArsble-5 17:00 Drug: fentaNYL (PF) 50 mcg Route: IM; Site: left ventrogluteal; 18:00 Follow up: Response: No adverse reaction 17:01 Not Given (iv WENT BAD): NS 0.9% 1000 ml IV at 1000 ml once ah 17:02 Drug: GI Cocktail without - (Maalox Suspension 30 ml, Lidocaine Liquid 2 % 15 ah ml) Route: PO; 18:00 Follow up: Response: No adverse reaction Disposition: 17:33 Co-signature as Attending Physician, Tanner Robbins MD. rn Disposition: 02/10/20 16:53 Discharged to Home. Impression: Unspecified abdominal pain. - Condition is Stable. - Discharge Instructions: Abdominal Pain, Adult. - Prescriptions for Zofran 4 mg Oral Tablet - take 1 tablet by ORAL route every 12 hours As needed; 20 tablet. Tylenol- Codeine #3 300-30 mg Oral Tablet - take 2 tablets by ORAL route every 6 hours As needed; 20 tablet. - Medication Reconciliation Form, Thank You Letter, Antibiotic Education, Prescription Opioid Use form. - Follow up: Emergency Department; When: As needed; Reason: Worsening of condition. Follow up: Private Physician; When: 2 - 3 days; Reason: Recheck today's complaints, Continuance of care, Re-evaluation by your physician. - Problem is new. - Symptoms have improved. Signatures: Dispatcher [employer] Patti Hernandez RN RN Tanner Vidal MD MD rn Marinas, Patrick, NETWORK TECHNICIAN NETWORK TECHNICIAN pm1 Angelina Ulrich RN RN Corrections: (The following items were deleted from the chart) 17:33 16:53 02/10/2020 16:53 Discharged to Home. Impression: Unspecified abdominal pain. Condition is Stable. Forms are Medication Reconciliation Form, Thank You Letter, Antibiotic Education, Prescription Opioid Use. Follow up: Emergency Department; When: As needed; Reason: Worsening of condition. Follow up: Private Physician; When: 2 - 3 days; Reason: Recheck today's complaints, Continuance of care, Re-evaluation by your physician. Problem is new. Symptoms have improved. pm1
[2020-02-10] MEDS ORDERED: LIDOCAINE VISCOUS 2% SOLN 15 ML UDC ONE (16:58)
[2020-02-10] MEDS ORDERED: MAGNE/ALUM HYDROXD 30 ML UCUP ONE (16:58)
[2020-02-10 17:37] VITALS: TEMP 99.3
[2020-02-10 17:40] VITALS: BP 119/97; O2SAT 99
--- NOTE | 2020-02-11 07:01 | EKG ---
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
== END 2020-02-10 17:33 | disposition home or self-care (01) ==
LOC: ER 14:38
DX: R10.12 Left upper quadrant pain (principal); I10 Essential (primary) hypertension; Z88.0 Allergy status to penicillin; Z88.1 Allergy status to other antibiotic agents; Z88.2 Allergy status to sulfonamides; Z88.5 Allergy status to narcotic agent; Z88.6 Allergy status to analgesic agent; Z88.8 Allergy status to other drugs, medicaments and biological substances; Z95.0 Presence of cardiac pacemaker; Z91.013 Allergy to seafood; Z91.018 Allergy to other foods; Z91.048 Other nonmedicinal substance allergy status
CPT/HCPCS: 93005; 85025; 80048; 36415; 83735; 85610; 80076; 84484; 83690; 83880; 74176; 71045; J3010; J7030; J2405; 96372; 96374; 99284

== ENCOUNTER 2020-03-17 07:06 | Emergency (ER) | payer MEDICAID, OTHER ==
--- OUTSIDE RECORDS SUMMARY | 2020-03-17 07:08 | XMS REPORT | Clinical Summary ---
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
--- OUTSIDE RECORDS SUMMARY | 2020-03-17 07:09 | XMS REPORT | Clinical Summary ---
:1980 Author Organization [facility] Address [address] [place] [address] Care Team Providers Name Role Phone Yoni [...] 0 Ac tive ORALIndications: COPD mouth daily. with Chronic Bronchitis digoxin (LANOXIN) Take 125 [...] Not on file Results Not on fileafter 03/17/2019 Insurance Payer Benefit Plan / Group Subscriber ID Type Phone A ascencion [employer] MED[place] MEDICAID [place] xxxxxxxxx Advance Directives For more information, please contact:[facility], [place] [phone] Code Status Date Activated Date Inactivated Comments Full Code 08/17/2018 7:42 PM This code status was determined by: Patient
--- OUTSIDE RECORDS SUMMARY | 2020-03-17 07:12 | XMS REPORT | Continuity of Care Document ---
:1980 Author Organization [facility] t Address [address] [place] [address] Care Team Providers Name Role Phone MILTON Primary Care Physician Unavailable Frank BARRAGAN Attending Clinician Unavailable Ralph LARSEN Attending Clinician LEONOR Attending Clinician Unavailable BADAR Attending Clinician Unavailable LEONOR Admitting Clinician Unavailable BADAR Admitting Clinician Unavailable Problems Condition Condition Condition Status Onset Resolution Last Treating Co mments Source Name Details Category Date Date Treatment Clinician Date Paresthesi Paresthesi Disease Active 2017-[address] a of left a of left 10-17 Luke s - arm and arm and 00:00: Medical leg leg 00 Center Allergies, Adverse Reactions, Alerts Allergy Allergy Status Severity Reaction(s) Onset Inactive Treating Comm ents Source Name Type Date Date Clinician Adhesive Propensi Active Rash 2017-09 [facility] use [facility] T[facility] 10[facility]17 papertape [facility] - adverse 00:00: . Medical reaction 00 Center s Sulfamet Propensi Active Anaphylaxis 2017-[address] hoxazole ty to 10-17 [facility] - -Trimeth adverse 00:00: Medical oprim reaction 00 Center s Diphenhy Propensi Active Nausea And 2017-[address] dramine ty to Vomiting 10-17 [facility] - Hcl adverse 00:00: Medical reaction 00 Center s Ciproflo Propensi Active 2017-[address] xacin ty to 10-17 aches. [facility] - adverse 00:00: Medical reaction 00 Center s Clindamy Propensi Active Rash 2017-[address] stephan ty to 10-17 [facility] - adverse 00:00: Medical reaction 00 Center s Codeine Propensi Active 2017-[address] ty to 10-17 ation, [facility] - adverse 00:00: confusion Medica l reaction 00 [place] s Tolterod Propensi Active Rash 2017-[address] ine ty to 10-17 [facility] - adverse 00:00: Medical reaction 00 [place] Gabapent Propensi Active Shortness Of 2017-[address] in ty to Breath, Rash 10-17 [facility] - adverse 00:00: Medical reaction 00 [place] Iodine Propensi Active Rash 2017-[address] And ty to 10-17 [facility] - Iodide adverse 00:00: Medical Containi reaction 00 [place] ng s Products Latex Propensi Active Rash 2017-[address] ty to 10-17 [facility] - adverse 00:00: Medical reaction 00 [place] s Morphine Propensi Active Anaphylaxis 2017-[address] ty to 10-17 [facility] - adverse 00:00: Medical reaction 00 [place] s Penicill Propensi Active Anaphylaxis 2017-[address] ins ty to 10-17 [facility] - adverse 00:00: Medical reaction 00 [place] s Quetiapi Propensi Active 2017-[address] ne ty to 10-17 [facility] - adverse 00:00: Medical reaction 00 Center s Sulfa Propensi Active Rash 2017-[address] (Sulfona ty to 10-17 [facility] - mide adverse 00:00: Medical Antibiot reaction 00 [place]vin ics) s Cefixime Propensi Active Rash 2017-[address] ty to 10-17 [facility] - adverse 00:00: Medical reaction 00 Center s Tramadol Propensi Active Rash 2017-[address] ty to 10-17 [facility] - adverse 00:00: Medical reaction 00 Center s Social History Social Habit Start Date Stop Date Quantity Comments Source History SDOH [facility] Alcohol Std Drinks History SDOH [facility] Alcohol Binge Sex Assigned At [facility] Alcohol intake 2018-09-04 2018-09-04 Current [facility] 00:00:00 00:00:00 non-drinker of alcohol (finding) History SDOH 2018-09-04 2018-09-04 1 [facility] Alcohol Frequency 00:00:00 00:00:00 Smoking Status Start Date Stop Date Source Former smoker 2018-09-04 00:00:00 2018-09-04 00:00:00 [facility] Medications Ordered Filled Start Stop Current Ordering Indication Dosage Frequency Signature Comments Components Source Medication Medication Date Date Medication? Clinician (SIG) Name Name digOXIN 2017-09 Yes 125ug QD Take 125 [place] on (LANOXIN) 2-11 mcg by [facility] 125 mcg 19:13: mouth st tablet 58 daily. ARIPiprazol 2017-09 Yes 10mg QD Take 10 mg [place] e (ABILIFY) 2-11 by mouth Meth jamie 10 MG 19:13: daily. st tablet 27 ARIPiprazol 2017-09 Yes 5mg QD Take 5 mg [place] (ABILIFY) 2-11 by mouth Meth jamie 5 MG tablet 19:13: daily. st 27 benztropine 2017-09 Yes 1mg Q.5D Take 1 mg [place] (COGENTIN) 2-11 by mouth 2 Met hodi 1 MG tablet 19:13: (two) st 27 times a day. busPIRone 2017-09 Yes 15mg Q.[id number] Take 15 mg [place] (BUSPAR) 10 2-11 [id number] by mouth 3 [facility] MG tablet 19:13: 3D (three) st 27 times a day. tiotropium 2017-09 Yes 18ug QD Inhale [address] (SPIRIVA) 1-23 mcg by [facility] - 18 mcg 19:42: mouth via Medica l inhalation 39 inhaler Center capsule daily. topiramate 2017-09 Yes 200mg Q.5D Take [address] (TOPAMAX) 1-23 mg by [facility] - 100 MG 19:42: mouth 2 Medical tablet 39 (two) Center times daily. ranolazine 2017-09 Yes 500mg Q.5D Take [address] (RANEXA) 1-23 mg by [facility] - 500 MG 12 19:37: mouth 2 Medic al hr tablet 17 (two) Center times daily. triamcinolo 2017-09 Yes 2{spray QD [address] ne 1-23 } by Nasal [facility] - (NASACORT) 19:34: route Medica l 55 mcg 07 daily. Center nasal inhaler esomeprazol 2017-09 Yes 40mg QD Take [address] e (NEXIUM) 1-23 by mouth [facility] - 40 MG 19:34: daily. Medical capsule 07 Center albuterol 2017-09 Yes 2{puff} Inhale [address] HFA 1-23 puffs by [facility] - (VENTOLIN 19:34: mouth via Med ical HFA) 90 07 inhaler. [place] mcg/actuati on inhaler levETIRAcet 2017-09 Yes 1000mg Q.5D Take 1,[address] am (KEPPRA) 1-23 mg by [facility] - 1000 MG 18:45: mouth 2 Medical tablet 43 (two) Center times daily. levothyroxi 2017-09 Yes 125ug Take [address] ne 1-23 mcg by [facility] - (SYNTHROID, 18:45: mouth Medic al LEVOTHROID) 43 Every Center 125 MCG morning on tablet an empty stomach. loratadine 2017-09 Yes 10mg QD Take [address] (CLARITIN) 1-23 by mouth [facility] - 10 mg 18:45: daily. Medical tablet 43 [place] pregabalin 2017-09 Yes 25mg QD Take [address] (LYRICA) 25 1-23 by mouth Luke s - MG capsule 18:45: nightly. Med ical 43 Center busPIRone 2017-09 Yes 15mg Q.5D Take [address] (BUSPAR) 15 1-23 by mouth 2 Jeanie kes - MG tablet 18:45: (two) Medical 42 times Center daily. benztropine 2017-09 Yes 2mg Take [address] (COGENTIN) 1-23 by mouth 3 Berta es - 2 MG tablet 18:45: (three) Med ical 42 times Center daily as needed. ROFLUMILAST 2017-09 Yes COPD with 500ug QD Take [address] ORAL 1-23 Chronic mcg by [facility] - 18:45: Bronchitis mouth Medica l 42 daily. [place] digoxin 2017-09 Yes 125ug QD Take 125 [facility] (LANOXIN) 1-23 mcg by [facility] - 0.125 MG 18:45: mouth Medical tablet 42 daily. [place] venlafaxine 2017-09 Yes 150mg QD Take [address] (EFFEXOR-XR 1-23 mg by [facility] - ) 150 MG 24 18:45: mouth Medic al hr capsule 42 daily. [place] apixaban 2017-09 Yes 5mg QD Take [address] (ELIQUIS) 5 -23 by mouth Luke s - mg Tab 18:45: daily. Medical tablet 42 [place] ARIPiprazol 2017-09 Yes 10mg QD Take [address] [facility] e (ABILIFY) -23 by mouth Luke s - 10 MG 18:45: daily. Medical disintegrat 41 [place] ing tablet ARIPiprazol 2017-09 Yes 5mg QD Take [address] e (ABILIFY) -23 by mouth Luke s - 5 MG tablet 18:45: nightly. Me dical 41 [place] albuterol 2017-09 Yes 1{ampul Q.[id number] Take [address] (ACCUNEB) 1-23 e} [id number] ampule by [facility] - 1.25 mg/3 18:45: 3D nebulizati Me dical mL 41 on 3 Center nebulizer (three) solution times daily. ALPRAZolam 2017-09 Yes .25mg Take 0.[address] (XANAX) 1-23 mg by [facility] - 0.25 MG 18:45: mouth Medical tablet 41 daily as Center needed for Anxiety. benztropine 2017-09 Yes 1mg Take [address] (COGENTIN) 1-23 by mouth [facility] - 1 MG tablet 18:45: daily as Me dical 41 needed. [place]vin fluticasone 2017-09 Yes 1{puff} QD Inhale [address] -vilanterol 1-23 puff by [facility] - (BREO 18:45: mouth via Medical ELLIPTA) 41 inhaler Center 100-25 daily. mcg/dose DsDv Procedures This patient has no known procedures. Plan of Care Planned Activity Planned Date Details Comments Source Future Scheduled 2020-04-25 INFLUENZA VACCINE [facility] Test 00:00:00 [code = INFLUENZA VACCINE] Future Scheduled [address] [facility] Test 00:00:00 malignant neoplasm of cervix (procedure) [code = 153505617] Encounters Start End Encounter Admission Attending Care Care Encounter Source Date/Time Date/Time Type Type Clinicians Facility Department ID 2020-02-20 2020-02-20 Anesthesia Abimbola Marie [id number] 15:59:00 18:03:00 Shawn Rosas [id number] [facility] [id number] 2017-09-06 2017-09-08 [facility] [id number] [address] 10:12:00 02:32:00 [facility] Results Test Description Test Time Test Comments Results Result Comments Source POCT-GLUCOSE METER 2018-08-21 10:22:00 Test Item Value Reference Range Interpretation Comme [facility] POC-GLUCOSE METER (ARNOL) (test 102 mg/dL 70-110 TESTED AT [facility] [address] [facility] code = 1538) [facility] 7703 0 MR, MRA, BRAIN, WITHOUT [id number] 09:32:00Reason for exam:->Ischemic Stroke EvaluationFINAL REPORT MRA Head CLINICAL HISTORY: Ischemic Stroke TECHNIQUE: MRA of the head utilizing 3-D uewz-ze-iuakrv technique, with 3-D reconstructions. COMPARISON: None FINDINGS: There is no evidence of intracranial aneurysm, focal stenosis, or major branch vessel occlusion. IMPRESSION: No evidence for a major [place] proximal branch vessel occlusion. MRA Neck CLINICAL HISTORY: Ischemic Stroke TECHNIQUE: MRA of the neck utilizing 2-D and 3-D lhbm-bl-zwfnjr technique, with 3-D reconstructions. COMPARISON: None FINDINGS: The carotid arteries in the neck are patent including their bifurcations. There is antegrade flow in the vertebral arteries in the neck. IMPRESSION: No evidence of hemodynamically significant stenosis in the cervical carotid or vertebral arteries by NASCET criteria. Signed: Santos Neff MDReport Verified Date/Time: 08/21/2018 09:32:09 Reading Location: [facility] C013V Neuro Reading Room MR, MRA, NECK, WITHOUT IV [id number] 09:32:00Reason for exam:->Ischemic Stroke EvaluationFINAL REPORT MRA Head CLINICAL HISTORY: Ischemic Stroke TECHNIQUE: MRA of the head utilizing 3-D wsut-hn-slkuwf technique, with 3-D reconstructions. COMPARISON: None FINDINGS: There is no evidence of intracranial aneurysm, focal stenosis, or major branch vessel occlusion. IMPRESSION: No evidence for a major [place] proximal branch vessel occlusion. MRA Neck CLINICAL HISTORY: Ischemic Stroke TECHNIQUE: MRA of the neck utilizing 2-D and 3-D mvsj-pm-fduequ technique, with 3-D reconstructions. COMPARISON: None FINDINGS: The carotid arteries in the neck are patent including their bifurcations. There is antegrade flow in the vertebral arteries in the neck. IMPRESSION: No evidence of hemodynamically significant stenosis in the cervical carotid or vertebral arteries by NASCET criteria. Signed: Santos Neff Verified Date/Time: 08/21/2018 09:32:09 Reading Location: [address] Reading Room MR, BRAIN, WITHOUT [id number] 09:25:00Reason for exam:- >Ischemic Stroke EvaluationFINAL REPORT [...] Santos Neff Verified Date/Time: 08/21/2018 09:25:25 Reading Location: [address] Neuro R eading Room POCT-GLUCOSE [id number] 21:26:00 Test Item Value Reference Range Interpretation Comments POC-GLUCOSE METER 119 mg/dL 70-110 H TESTED AT [place] [address] ([facility]) (test code = AYLIN Rivera [facility] 1538) [id number] POCT-GLUCOSE [id number] 18:03:00 Test Item Value Reference Range Interpretation Comments POC-GLUCOSE METER 119 mg/dL 70-110 H TESTED AT [place] [address] ([facility]) (test code = AYLIN Rivera [facility] 1538) [id number] POCT-GLUCOSE [id number] 12:39:00 Test Item Value Reference Range Interpretation Comments POC-GLUCOSE METER 120 mg/dL 70-110 H TESTED AT [place] [address] ([facility]) (test code = AYLIN Rivera [facility] 1538) [address] RAD, CHEST, 1 VIEW, NON [id number] 12:04:00Reason for exam:->To Locate Heart Device (Pacemaker)Should [...] .Additional findings: None. Signed: JR Garcia Robert MDRthe [facility] of [facility] [place] Verified Date/Time: 08/20/2018 12:04:06 Reading Location: [facility] Radiology Reading Room POCT-GLUCOSE [id number] 09:17:00 Test Item Value Reference Range Interpretation Comments POC-GLUCOSE METER 121 mg/dL 70-110 H TESTED AT [place] [address] ([facility]) (test code = AYLIN Rivera [facility] 1538) [address] BASIC METABOLIC [id number] 06:56:00 Test Item Value Reference Range Interpretation Comments SODIUM ([facility]) 140 meq/L 136-145 (test code = 381) [...] NOT APPLICABLE FOR DIALYSIS PATIEN TS. POCT-GLUCOSE [id number] 21:09:00 Test Item Value Reference Range Interpretation Comments POC-GLUCOSE METER 109 mg/dL 70-110 TEST[facility] AT [place] [address] [facility] (test code = AYLIN Rivera [facility] 1538) [address] POCT-GLUCOSE [id number] 17:15:00 Test Item Value Reference Range Interpretation Comments POC-GLUCOSE METER 117 mg/dL 70-110 H TESTED AT [place] [address] ([facility]) (test code = AYLIN Rivera [facility] 1538) [address] VITAMIN B12 AND [id number] 06:39:00 Test Item Value Reference Range Interpretation Comments VITAMIN B12 (BEAKER) (test code = 524 pg/mL 213-816 774) FOLATE (BEAKER) (test code = 362) 13.5 ng/mL >=7.0 BASIC METABOLIC [id number] 05:48:00 Test Item Value Reference Range Interpretation [...] S NOT APPLICABLE FOR DIALYSIS PATIEN TS. [id number] 15:42:00 Test Item Value Reference Range Interpretation Comments RPR SCREEN (BEAKER) (test code = Nonreactive Nonreactive 420) HEMOGLOBIN [id number] 09:14:00 Test Item Value Reference Range Interpretation Comments HEMOGLOBIN A1C (BEAKER) (test code = 5.3 % 4.3-6.1 368) TSH/FREE T4 IF [id number] 04:49:00 Test Item Value Reference Range Interpretation Comments THYROID STIMULATING HORMONE 3.18 uIU/mL 0.35-4.94 (BEAKER) (test code = 772) BASIC METABOLIC [id number] 04:38:00 Test Item Value Reference Range Interpretation [...] NOT APPLICABLE FOR DIALYSIS PATIEN TS. LIPID [id number] 04:38:00 Test Item Value Reference Range Interpretation [...] 130-159 High 160-189 Very High >=190HEPATIC FUNCTION [id number] 04:38:00 Test Item Value Reference Range Interpretation [...] (test code = 413) AFB Culture and [id number] 13:24:00Specimen/Source: Wound/PACEMAKERCollected: 09/05/2017 19:45 Status: Final Last Updated: 11/01/2017 13:24 RWJ-Tlote-Ulgubasjgllr (Final) (Final) 09/07/17 No acid fast bacill seen on direct smear Culture Result (Final) (Final) 11/01/17 No growth of AFB at six (6) weeksFungus Culture with [id number] 12:12:00 Specimen/Source: Wound/PACEMAKERCollected: 09/05/2017 19:45 Status: Final Last Updated: 10/22/2017 12:12 Fungal Smear Result (Final) (Final) 09/06/17 No yeast or hyphae seen Culture Result (Final) (Final) 10/22/17 No fungus isolated at 6 weeksCulture, Blood [id number] 08:23:00Specimen: BloodCollected: 09/04/2017 20:30 Status: Final Last Updated: 09/10/2017 08:23 Culture Result (Final) (Final) No Growth After 5 DaysCulture, Blood [id number] 08:23:00Specimen: BloodCollected: 09/04/2017 20:15 Status: Final Last Updated: 09/10/2017 08:23 Culture Result (Final) (Final) No Growth After 5 DaysCulture, Wound [id number] 08:52:00Specimen: WoundCollected: 09/05/2017 19:45 Status: Final Last Updated: 09/08/2017 08:52 Gram Stain (Final) (Final) 09/06/17 No organisms seen, Few WBC's Culture Result (Final) (Final) 09/08/17 Anaerobic culture:No anaerobes isolated at 3 days Isolate (Final) (Final) 09/07/17Few Staph-coag positive Isolate Staph-coag positive JERMAINE (mcg/ml) Amoxicillin/Clav (AUG)<=4/2 Susceptible Ampicillin (AM) >8 Resistant Ampicillin/Sulb (A/S) <=8/4 Susceptible Cefazolin (CFZ) <=4 Susceptible Ceftriaxone (FLEET SALES ASSOCIATE) <=4 Susceptible Chloramphenicol (C) <=8 Susceptible Ciprofloxacin (CP) <=1 Susceptible Clindamycin (CM) 0.5 Susceptible Erythromycin (E) <=0.25 Susceptible Gentamicin (GM) <=1 Susceptible Imipenem (IMP) <=4 Susceptible Levofloxacin (LEV) <=0.5 Susceptible Linezolid (LNZ) 4 Susceptible Oxacillin (OX1) 0.5 Susceptible Penicillin (P) >8 Resistant Rifampin (RA) <=1 Susceptible Tetracycline (TE) <=1 Susceptible Trimethoprim/Sulfa <=0.5/9.Susceptible (SXT) 5 Vancomycin (VA) 2 SusceptibleRenal [id number] 08:51:00 Test Item Value Reference Range Interpretation [...] National Kidney Foundation,http ://nkd ep.nih.gov CBC with [id number] 07:39:00 Test Item Value Reference Range Interpretation [...] code = ALYMPH) 1.7 K/cumm 0.5-4.6 N [place] Abs (test code = AMONO) 0.3 K/cumm 0.0-1.2 N Eos Abs (test code = AEOS) 0.29 K/cumm 0.00-0.74 N Baso Abs (test code = ABASO) 0.0 K/cumm 0.00-0.21 N Vancomycin, [id number] 12:33:00 Test Item Value Reference Range Interpretation Comments Vanco, Trou (test code = VANTR) 7.9 ug/mL 10.0-20.0 L Magnesium, [id number] 06:37:00 Test Item Value Reference Range Interpretation Comments Magnesium (test code = MG) 2.4 mg/dL 1.7-2.5 N Renal [id number] 06:29:00 Test Item Value Reference Range Interpretation [...] National Kidney Foundation,http ://nkd ep.nih.gov BHCG, Serum, [id number] 06:26:00 Test Item Value Reference Range Interpretation Comments Preg Qual [Se] (test code = BSHCG) Negative Negative N CBC with [id number] 06:24:00 Test Item Value Reference Range Interpretation [...] code = ALYMPH) 1.6 K/cumm 0.5-4.6 N [place] Abs (test code = AMONO) 0.4 K/cumm 0.0-1.2 N Eos Abs (test code = AEOS) 0.18 K/cumm 0.00-0.74 N Baso Abs (test code = ABASO) 0.0 K/cumm 0.00-0.21 N XR CHEST 1 [id number] 16:29:55XR CHEST 1 VIEWLOCATION: [id number]: None.INDICATION: REVIEW PICC LINE PLACEMENTDISCUSSION:AP chest and [...] = TSH) 3.44 mIU/mL 0.270-4.200 N Lipid [id number] 05:47:00 Test Item Value Reference Range Interpretation Comments Cholesterol (test 160 mg/dL 0-200 N code = CHOL) Triglycerides (test 126 mg/dL 9-200 N code = TRIG) HDL (test code = 35 mg/dL 50-60 L HDL) Chol/HDL (test code 4.6 Ratio 0.0-4.4 H = CHOLPHDL) LDL, Calculated 100 0-130 N (NOTE)RISK O F HEART (test code = LDLC) DISEASEPu blished by Citizen Of [place] Heart AssociationAnal yte Optim al Boderline Increased RiskC HOL <200 200-239 >240TRI G <150 150-199 >200HDL Male: >60 <40HDL Female: >60 <50 LDL < 100 130-15 9 >160 LDL NEAR OPTIMAL IS 100- 129 VLDL (test code = 25 mg/dL 5-40 N VLDL) LDL/HDL (test code = 3 LDLPHDL) Basic Metabolic [id number] 05:47:00 Test Item Value Reference Range Interpretation [...] the National Kidney Foundation,http ://nkd ep.nih.gov Magnesium, [id number] 05:47:00 Test Item Value Reference Range Interpretation Comments Magnesium (test code = MG) 2.3 mg/dL 1.7-2.5 N CBC with [id number] 05:36:00 Test Item Value Reference Range Interpretation [...] code = ALYMPH) 2.2 K/cumm 0.5-4.6 N [place] Abs (test code = AMONO) 0.3 K/cumm 0.0-1.2 N Eos Abs (test code = AEOS) 0.24 K/cumm 0.00-0.74 N Baso Abs (test code = ABASO) 0.0 K/cumm 0.00-0.21 N Partial Thromboplastin [id number] 21:26:00 Test Item Value Reference Range Interpretation Comments aPTT (test code = PTT) 29.00 seconds 24.39-37.25 N Prothrombin [id number] 21:26:00 Test Item Value Reference Range Interpretation Comments PT (test code = PT) 10.70 seconds 9.78-13.35 N INR (test code = INR) 0.95 Ratio 0.6-1.2 N Comprehensive Metabolic [id number] 21:23:00 Test Item Value Reference Range Interpretation [...] National Kidney Foundation,http ://nkd ep.nih.gov CBC with [id number] 21:16:00 Test Item Value Reference Range Interpretation [...] code = ALYMPH) 2.2 K/cumm 0.5-4.6 N [place] Abs (test code = AMONO) 0.4 K/cumm 0.0-1.2 N Eos Abs (test code = AEOS) 0.17 K/cumm 0.00-0.74 N Baso Abs (test code = ABASO) 0.1 K/cumm 0.00-0.21 N
--- OUTSIDE RECORDS SUMMARY | 2020-03-17 07:18 | XMS REPORT | Summary of Care ---
:1980 Author Organization [facility] Address [address] [place] [address] Care Team Providers Name Role Phone Joshua Reyes Insurance Hmo Lila Reyes Primary Care Provider Reason for Visit Reason Comments Pre-op Clearance Screening Encounter Details Date Type Department Care Team Description 02/18/2020 Laboratory Only [facility] Gucci Joshi MD [address] [place], [place] [id number] COVID-19 (Primary Dx); Professional Office Only, Adc Test Special screening examination for viral disease Building Phlebotomy Lab Professional Office Building [address] [place] [address] , [address] [place] [address] [facility] [phone] Allergies Active Allergy Reactions Severity Noted Date [...] as of this encounter (statuses as of 02/18/2020) Medications Medication Sig Dispensed Refills Start Date [...] as of this encounter (statuses as of 02/18/2020) Active Problems Problem Noted Date Syncope 10/29/2019 [...] Added automatically from request for yara arslan [id number] Abdominal pain, unspecified abdominal location 018 Overview: Added automatically from request for ayra arslan [id number] Nausea and vomiting, intractability of vomiting not sp ecified, unspecified 07/13/2018 vomiting type Overview: Added automatically from request for yara arslan [id number] Chest pain 04/27/2018 Essential hypertension 04/27/2018 Pacemaker 04/27/2018 PAF (paroxysmal atrial fibrillation) 04/27/2018 History of cardiac pacemaker in situ 08/23/2017 Tachycardia, unspecified 06/22/2017 Elevated liver enzymes 07/23/2014 Pseudoseizure 04/15/2014 Left sided numbness 03/22/2014 Prediabetes 09/24/2013 Loss of weight 09/24/2013 Hypothyroidism 09/24/2013 Overview: ICD10 Diagnosis Term Type Rolling Machine 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 COVID-19 Exposure Response Date Recorded In the last month, have you been in contact with No / Unsure 02/18/2020 8:12 AM CDT someone who was confirmed or suspected to have Coronavirus / COVID-19? documented as of this encounter Last Filed Vital Signs Not on filedocumented in this encounter Plan of Treatment Date Type Specialty Care Team Description 12/11/2019 Anesthesia Event Cardiac Electrophysiology Abimbola Vick RN [address] [place] [id number] 02/20/2020 Hospital Encounter Cardiac Electrophysiology Gucci Fitzgerald MD [address] [place], [place] [phone] Anesthesia-Yana, Ep Lab Outpt-Yana, Ep Lab 03/20/2020 Nurse Visit Cardiology Visit, Adc Nurse 04/10/2020 Office Visit Cardiology Navi Hines MD [address] [place] [address] [place] [phone] Name Type Priority Associated Diagnoses Order S chedule COVID-19 (PCR MOLECULAR LAB Routine COVID-19 Expected: 02/18/2020, TESTING) Special screening Expires: 0 02/17/2021 examination for viral disease Health Maintenance Due Date Last Done Comments VARICELLA VACCINES (1 of 2 - 2-dose childhood series) 1982 DTaP,Tdap,and Td Vaccines (1 - Tdap) 1992 PAP SMEAR 06/21/2007 06/21/2004 INFLUENZA VACCINE (Season Ended) 2020 PNEUMOCOCCAL 0-64 YEARS COMBINED SERIES Completed 06/23/20 17 documented as of this encounter Implants Implanted Type Area Crusher Dry Ground Mica Device Identifier Shelf Exp iration Model / Serial Date / Lot Pacemaker documented as of this encounter Results Not on filedocumented in this encounter Visit Diagnoses Diagnosis COVID-19 - Primary Special screening examination for viral disease Special screening examination for unspec ified viral disease documented in this encounter Insurance Payer Benefit Plan / Subscriber ID Effective Phone Address T ype Group Dates SOLORIO SOLORIO xxxxxxxxx 2011-[place] [place] [id number] MA[place]GED MEDICAID [place], [place]ICA[place] documented as of this encounter
--- OUTSIDE RECORDS SUMMARY | 2020-03-17 07:19 | XMS REPORT | Summary of Care ---
:1980 Author Organization [facility] Address [address] [place] [address] Care Team Providers Name Role Phone Joshua Reyes Insurance Hmo Lila Reyes Primary Care Provider Reason for Visit Reason Comments Palpitations Encounter Details Date Type Department Care Team Description 02/18/2020 Telephone [place] [facility]- [place] [facility] Gucci [address] [place] [address] [place], [place] [id number] Allergies Active Allergy Reactions Severity Noted Date [...] Added automatically from request for yara arslan [id number] Abdominal pain, unspecified abdominal location 018 Overview: Added automatically from request for yara arslan [id number] Nausea and vomiting, intractability of vomiting not sp ecified, unspecified 07/13/2018 vomiting type Overview: Added automatically from request for yara arslan [id number] Chest pain 04/27/2018 Essential hypertension 04/27/2018 Pacemaker 04/27/2018 PAF (paroxysmal atrial fibrillation) 04/27/2018 History of cardiac pacemaker in situ 08/23/2017 Tachycardia, unspecified 06/22/2017 Elevated liver enzymes 07/23/2014 Pseudoseizure 04/15/2014 Left sided numbness 03/22/2014 Prediabetes 09/24/2013 Loss of weight 09/24/2013 Hypothyroidism 09/24/2013 Overview: ICD10 Diagnosis Term Fermenter Operator Utility Hypoglycemia 08/21/2013 Overview: ICD10 Diagnosis Term Fermenter Operator Utility documented as of this encounter [...] Anesthesia Event Cardiac Electrophysiology Abimbola Vick RN [address] [place] [address] 02/20/2020 Hospital Encounter Cardiac Electrophysiology Car Gucci baca MD [address] [place] [address] Anesthesia-Yana, Ep Lab Outpt-Yana, Ep Lab 03/20/2020 Nurse Visit Cardiology Visit, Adc Nurse 04/10/2020 Office Visit Cardiology Navi Hines MD [address] [address] Name Type Priority Associated Diagnoses Order S chedule CBC W/O DIFF LAB Routine Sick sinus syndrome Expected : 02/18/2020, Expires: 2020 BASIC METABOLIC PANEL LAB Routine Sick sinus syndrome Expected: 02/18/2020, ([id number])(NA, K, CL, CO2, Expi res: 02/17/2021 GLUCOSE, BUN, CREATININE, CA) PROTHROMBIN TIME / INR LAB Routine Sick sinus syndrom e Expected: 02/18/2020, Expires: 2020 Type and Screen - LAB Routine Sick sinus syndrome Exp ected: 02/18/2020, Expires: 2020 Health Maintenance Due Date Last Done Comments VARICELLA VACCINES (1 of 2 - 2-dose childhood series) 1982 DTaP,Tdap,and Td Vaccines (1 - Tdap) 1992 PAP SMEAR 06/21/2007 06/21/2004 INFLUENZA VACCINE (Season Ended) 2020 PNEUMOCOCCAL 0-64 YEARS COMBINED SERIES Completed 06/23/20 17 documented as of this encounter Implants Implanted Type Area Radio Frequency Design Engineer Device Identifier Shelf Exp iration Model / Serial Date / Lot Pacemaker documented as of this encounter Results Not on filedocumented in this encounter Visit Diagnoses Diagnosis Sick sinus syndrome - Primary Sinoatrial node dysfunction documented in this encounter Insurance Payer Benefit Plan / Subscriber ID Effective Phone Address T [facility] Group Dates LYNDSEY SOLORIO xxxxxxxxx 2011-Kobe PERALTA Medic [place] [facility] [address] [place] MEDICAID [place] documented as of this encounter
--- OUTSIDE RECORDS SUMMARY | 2020-03-17 07:20 | XMS REPORT | Summary of Care ---
:1980 Author Organization [facility] Address [address] [place] [address] Care Team Providers Name Role Phone Joshua Reyes Insurance Hmo Lila Reyes Primary Care Provider Reason for Visit Reason Comments Orders lab Encounter Details Date Type Department Care Team Description 02/18/2020 Telephone [facility] Cardiology, Leida Umaña (lab) [facility] MD Gucci [address] [place] [address] [address] [place] [address] [place] [address] [phone] Allergies Active Allergy Reactions Severity Noted Date [...] Added automatically from request for yara arslan [id number] Abdominal pain, unspecified abdominal location 018 Overview: Added automatically from request for yara arslan [id number] Nausea and vomiting, intractability of vomiting not sp ecified, unspecified 07/13/2018 vomiting type Overview: Added automatically from request for yara arslan [id number] Chest pain 04/27/2018 Essential hypertension 04/27/2018 Pacemaker 04/27/2018 PAF (paroxysmal atrial fibrillation) 04/27/2018 History of cardiac pacemaker in situ 08/23/2017 Tachycardia, unspecified 06/22/2017 Elevated liver enzymes 07/23/2014 Pseudoseizure 04/15/2014 Left sided numbness 03/22/2014 Prediabetes 09/24/2013 Loss of weight 09/24/2013 Hypothyroidism 09/24/2013 Overview: ICD10 Diagnosis Term Plate Grainer Utility Hypoglycemia 08/21/2013 Overview: ICD10 Diagnosis Term Plate Grainer Utility documented as of this encounter (statuses [...] Event Cardiac Electrophysiology Abimbola Vick RN [address] [place] [address] 02/20/2020 Hospital Encounter Cardiac Electrophysiology Gucci Fitzgerald MD [address] [place] [address] Anesthesia-Yana, Ep Lab Outpt-Yana, Ep Lab 03/20/2020 Nurse Visit Cardiology Visit, Adc Nurse 04/10/2020 Office Visit Cardiology Navi Hines MD [address] [address] Name Type Priority Associated Diagnoses Order S chedule BASIC METABOLIC PANEL LAB Routine Inappropriate sinus Expected: (NA, K, CL, CO2, tachycardia 02/18/2020, GLUCOSE, BUN, Sinus tachycardi a Expires: CREATININE, CA) Palpitations 02/17/2021 Atypical chest p ain Essential hypert ension SVT (supraventricular tachycardia) Tachycardia Other chest pain Pacemaker Pain in pacemaker pocket CALCIUM LAB Routine Inappropriate sinus Expected : tachycardia 02/18/2020, Sinus tachycardi a Expires: Palpitations 02/17/2021 Atypical chest p ain Essential hypert ension SVT (supraventricular tachycardia) Tachycardia Other chest pain Pacemaker Pain in pacemaker pocket EKG-12 LEAD ROUTINE HEART STATION Routine Inappropriate sinus Expected: tachycardia 02/18/2020, Sinus tachycardi a Expires: Palpitations 02/17/2021 Atypical chest p ain Essential hypert ension SVT (supraventricular tachycardia) Tachycardia Other chest pain Pacemaker Pain in pacemaker pocket MAGNESIUM LAB Routine Inappropriate sinus Expected : tachycardia 02/18/2020, Sinus tachycardi a Expires: Palpitations 02/17/2021 Atypical chest p ain Essential hypert ension SVT (supraventricular tachycardia) Tachycardia Other chest pain Pacemaker Pain in pacemaker pocket PHOSPHORUS LAB Routine Inappropriate sinus Expected : tachycardia 02/18/2020, Sinus tachycardi a Expires: Palpitations 02/17/2021 Atypical chest p ain Essential hypert ension SVT (supraventricular tachycardia) Tachycardia Other chest pain Pacemaker Pain in pacemaker pocket Health Maintenance Due Date Last Done Comments VARICELLA VACCINES (1 of 2 - 2-dose childhood series) 1982 DTaP,Tdap,and Td Vaccines (1 - Tdap) 1992 PAP SMEAR 06/21/2007 06/21/2004 INFLUENZA VACCINE (Season Ended) 2020 PNEUMOCOCCAL 0-64 YEARS COMBINED SERIES Completed 06/23/20 17 documented as of this encounter Implants Implanted Type Area Bathhouse Attendant Device Identifier Shelf Exp iration Model / Serial Date / Lot Pacemaker documented as of this encounter Results Not on filedocumented in this encounter Visit Diagnoses Diagnosis Inappropriate sinus tachycardia - Primar y Other specified cardiac dysrhythmias Sinus tachycardia Other specified cardiac dysrhythmias Palpitations Atypical chest pain Other chest pain Essential hypertension Unspecified essential hypertension SVT (supraventricular tachycardia) Other specified cardiac dysrhythmias Tachycardia Tachycardia, unspecified Other chest pain Pacemaker Cardiac pacemaker in situ Pain in pacemaker pocket documented in this encounter Insurance Payer Benefit Plan / Subscriber ID Effective Phone Address T e Group Dates LYNDSEY SOLORIO xxxxxxxxx 2011-[place] [address] [place] [facility] [place] [address] MANAGED MEDICAID [place] documented as of this encounter
--- OUTSIDE RECORDS SUMMARY | 2020-03-17 07:22 | XMS REPORT | Summary of Care ---
:[address] [facility] Address [address] [place] [address] Care Team Providers Name Role Phone Joshua Reyes Insurance Hmo Lila Reyes Primary Care Provider Reason for Visit Reason Comments Appointment Encounter Details Date Type Department Care Team Description 02/18/2020 Telephone [facility] Madelyn, Vivienne Electrophysiology Alejandra Duckworth MD The [address] [place] [address], [address] [place] [address] [phone] Allergies Active Allergy Reactions Severity Noted Date [...] Added automatically from request for yara arslan [id number] Abdominal pain, unspecified abdominal location 018 Overview: Added automatically from request for yara arslan [id number] Nausea and vomiting, intractability of vomiting not sp ecified, unspecified 07/13/2018 vomiting type Overview: Added automatically from request for yara arslan [id number] Chest pain 04/27/2018 Essential hypertension 04/27/2018 Pacemaker 04/27/2018 PAF (paroxysmal atrial fibrillation) 04/27/2018 History of cardiac pacemaker in situ 08/23/2017 Tachycardia, unspecified 06/22/2017 Elevated liver enzymes 07/23/2014 Pseudoseizure 04/15/2014 Left sided numbness 03/22/2014 Prediabetes 09/24/2013 Loss of weight 09/24/2013 Hypothyroidism 09/24/2013 Overview: ICD10 Diagnosis 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 Hypoglycemia 08/21/2013 Overview: ICD10 Diagnosis 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 documented as of this encounter [...] Event Cardiac Electrophysiology Abimbola Vick RN [address] [place] [address] 02/20/2020 Hospital Encounter Cardiac Electrophysiology Gucci Fitzgerald MD [address] [place] [address] Anesthesia-Yana, Ep Lab Outpt-Yana, Ep Lab 03/20/2020 Nurse Visit Cardiology Visit, Adc Nurse 04/10/2020 Office Visit Cardiology Navi Hines MD [address] [address] Health Maintenance Due Date Last Done Comments VARICELLA VACCINES (1 of 2 - 2-dose childhood series) 1982 DTaP,Tdap,and Td Vaccines (1 - Tdap) 1992 PAP SMEAR 06/21/2007 06/21/2004 INFLUENZA VACCINE (Season Ended) 2020 PNEUMOCOCCAL 0-64 YEARS COMBINED SERIES Completed 06/23/20 17 documented as of this encounter Implants Implanted Type Area Vacuum Form Operator Device Identifier Shelf Exp iration Model / Serial Date / Lot Pacemaker documented as of this encounter Results Not on filedocumented in this encounter Insurance Payer Benefit Plan / Subscriber ID Effective Phone Address T e Group Dates LYNDSEY SOLORIO xxxxxxxxx 2011-Kobe PERALTA Medic [place] [facility] [place] [address] [place] MEDICAID [place] documented as of this encounter
--- OUTSIDE RECORDS SUMMARY | 2020-03-17 07:23 | XMS REPORT | Summary of Care ---
:1980 Author Organization [facility] Address [address] [place] [address] Care Team Providers Name Role Phone Joshua Reyes Insurance Hmo Lila Reyes Primary Care Provider Reason for Visit (Routine) Status Reason Specialty Diagnoses / Referred By Referred To Contact Procedures Contact Closed Cardiac Diagnoses SVT (supraventricular tachycardia) Todd Electrophysiol Electrophysiology Procedures Electrophysiology Lab Request for Service (Electrophysiology Use Only) Gucci serrato MD Lab-Yana [address] [place] [address] Branch Jannette Muñoz Phone: [facility] [phone] [place] [address], Fax: [phone] [place], [facility] [address] Phone: Fax: Encounter Details Date Type Department Care Team Description 02/20/2020 Hospital Encounter [facility] Gucci Estes MD [address] [place] [id number] [phone] PVT (paroxysmal Electrophysiology La b Anesthesia-Yana, Ep Lab ventricular [facility] Outpt-Yana, Ep Lab tachycardia) Medical Branch [facility] (Prima ry Dx) [address] [place] [address] Allergies Active Allergy Reactions Severity Noted [...] as of this encounter (statuses as of 02/21/2020) Medications Medication Sig Dispensed Refills Start Date [...] as of this encounter (statuses as of 02/21/2020) Active Problems Problem Noted Date Syncope 10/29/2019 [...] Added automatically from request for yara arslan [id number] Abdominal pain, unspecified abdominal location 018 Overview: Added automatically from request for yara arslan [id number] Nausea and vomiting, intractability of vomiting not sp ecified, unspecified 07/13/2018 vomiting type Overview: Added automatically from request for yara arslan [id number] Chest pain 04/27/2018 Essential hypertension 04/27/2018 Pacemaker 04/27/2018 PAF (paroxysmal atrial fibrillation) 04/27/2018 History of cardiac pacemaker in situ 08/23/2017 Tachycardia, unspecified 06/22/2017 Elevated liver enzymes 07/23/2014 Pseudoseizure 04/15/2014 Left sided numbness 03/22/2014 Prediabetes 09/24/2013 Loss of weight 09/24/2013 Hypothyroidism 09/24/2013 Overview: ICD10 Diagnosis 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 documented as of this encounter Last Filed Vital Signs Vital Sign Reading Time Taken Comments Blood Pressure 107/88 02/20/2020 8:00 PM CDT Pulse 102 02/20/2020 9:00 PM CDT Temperature - - Respiratory Rate 16 02/20/2020 9:00 PM CDT Oxygen Saturation 97% 02/20/2020 9:00 PM CDT Inhaled Oxygen Concentration - - Weight 49.9 kg (110 lb) 02/20/2020 6:38 PM CDT Height 149.9 cm (4' 11") 02/20/2020 6:38 PM CDT Body Mass Index 22.22 02/20/2020 6:38 PM CDT documented in this encounter Discharge Instructions Veronica Smith RN - 02/20/2020 Patient Discharge Instructions Follow instructions as indicated below: Discharge Orders Avoid making important life decisions for the first 48 hours Do not remove band-aid for the first 24 hours after procedure. "Do not soak in a bathtub or hot tub for the first 24 hours after procedure No strenuous acctivity for 72 hours "May not operate motorized vehicle for the first 24 hours after procedure "Keep surgical wound dry and free from water, ointments, powders, alcohol, hydrogen peroxide or creams for 2 weeks after procedure "Resume pre-procedure medications except (see comments) Resume pre-procedure diet No heavy lifting on surgery side for 3 weeks after procedure Do not lie on surgery side for 2 weeks after procedure Keep surgery site clean and dry for 24 hours after procedure Do not use arm on surgery side to push or pull up in bed/out of chair for 3 weeks after procedure Do not swim or play golf for 3 months after procedure Weight: In general, sudden weight gains or losses should be reported to your provider. Cardiac patients should weigh daily and notify their provider for a weight gain of 3 pounds per day or 5 pounds per week. Follow-up appointments: To schedule other appointments, call the [facility] Health Access Center at [phone] or . You may also make appointments online by going to [email or web address] and follow the RequestAppointment quicklink. Take Home Medications These are medications ordered for you by your healthcare provider. Do not take any other medicationsor supplements unless advised by your healthcare provider. Patient's Medications START taking these medications No [...] mg by mouth at bedtime as needed. APIXABAN (ELIQUIS) 5 MG TABLET Take 1 tablet by mouth 2 (two) times daily. Indications: PAF ATORVASTATIN 10 MG TABLET Take 10 mg by mouth daily. BENZTROPINE 1 MG TABLET TK 1 T PO BID BLOOD SUGAR DIAGNOSTIC (TRUETEST TEST STRIPS) STRIP Use as directed. R 73.03. Check once daily BUSPIRONE 15 MG TABLET TK 1 T PO BID CARVEDILOL 25 MG TABLET Take 1 tablet by mouth 2 (two) times daily with meals. CYCLOBENZAPRINE 5 MG TABLET Take 1 tablet by mouth 3 (three) times daily as needed for Muscle Spasms. DALIRESP 500 MCG TAB daily. DICLOFENAC SODIUM (VOLTAREN) 1 % GEL Apply to area(s) 2 (two) times daily as needed for Pain (scale 4-6). FLUTICASONE-VILANTEROL (BREO ELLIPTA) 100-25 MCG/DOSE DSDV Inhale [...] taking these medications No medications on file Medications: Your doctor may prescribe medicine to prevent blood clots. You may also have to take medicine to prevent chest pain. Take your medicine as usual after the procedure unless your doctor has told you to stop. Any changes in your medicine's schedule will be explained to you. For questions regarding follow-up instructions call the [facility] at or For worsening symptoms/changing condition/problems or questions: During normal business hours call the [facility] Cardiac Patrol Sergeant Sheriff'S Office at . At nights, weekends or holidays, call the [facility] hospital elevated work platform operator at . Ask the elevated work platform operator to page the Cardiac Cath Fellow who is on-call. Emergency: Go to the closest emergency room or call 911 Signs and Symptoms of a Problem: Call your doctor if you have any of the following problems: Fever Swelling, pain, redness around the puncture site Foul smell or drainage from the site Odd changes in sensations, like numbness, tingling, coldness or pain in the arm or leg where the catheter was inserted. If you start Bleeding: Apply pressure to the site. If the bleeding continues, have someone call your doctor and make arrangements to see him/her. Please follow the doctor's directions. Our Goal is to Always Provide You with Very Good Care! We will be mailing you a survey, Please complete and return at your convenience. Thank You TOBACCO AVOIDANCE Exposure to tobacco either from smoking or from second hand (environmental) smoke or smokeless tobacco (snuff) is damaging to your health. This information is to encourage everyone to avoid tobacco exposure. It is recommended that you: ? If you smoke or use smokeless tobacco, we encourage you to quit. ? If you have already quit smoking, continue your good work! ? If you do not smoke or use smokeless tobacco, do not start. ? Avoid secondhand smoke. Additional Resources You may want to contact these organizations for further information on smoking and how to quit. [place] [employer], http://www.lungusa.org/stop-smoking/ [place] [employer], http://www.cancer.org/Healthy/StayAwayfromTobacco/index [place] [employer] Association, http://www.heart.org/HEARTORG/GettingHealthy/QuitSmoking/Quit-Smoking_[facility] _001085_SubHomePage.jsp documented in this encounter Plan of Treatment Date Type Specialty Care Team Description 03/20/2020 Nurse Visit Cardiology Visit, Debra Nurse 04/10/2020 Office Visit Cardiology Navi Hines MD [address] [place], [place] [address] Health Maintenance Due Date Last Done Comments VARICELLA VACCINES (1 of 2 - 2-dose childhood series) 1982 DTaP,Tdap,and Td Vaccines (1 - Tdap) 1992 PAP SMEAR 06/21/2007 06/21/2004 INFLUENZA VACCINE (Season Ended) 2020 11/16/2015 Depression Screening 12/09/2020 12/10/2019 PNEUMOCOCCAL 0-64 YEARS COMBINED SERIES Completed 06/23/20 17 documented as of this encounter Implants Implanted Type Area Interior Design Coordinator Device Identifier Shelf Exp iration Model / Serial Date / Lot Pacemaker documented as of this encounter Results Not on filedocumented in this encounter Visit Diagnoses Diagnosis PVT (paroxysmal ventricular tachycardia) - Primary Paroxysmal ventricular tachycardia documented in this encounter Administered Medications Medication Order MAR Action Action Date Dose Rate Site ondansetron (ZOFRAN (PF)) injection Given 02/20/2020 6:39 PM CD T 4 mg 4 mg 4 mg, Slow IV Push, ONCE, 1 dose, Joellen 02/20/20 at 1945, Routine documented in this encounter Insurance Payer Benefit Plan / Subscriber ID Effective Phone Address T ype Group Dates LYNDSEY SOLORIO xxxxxxxxx 2011-Kobe PERALTA Medic [facility] line [facility] [place] [place] [address] MANAGED MEDICAID [place] documented as of this encounter
--- OUTSIDE RECORDS SUMMARY | 2020-03-17 07:25 | XMS REPORT | Summary of Care ---
:1980 Author Organization [facility] Address [address] [place] [address] Care Team Providers Name Role Phone Joshua Reyes Insurance Hmo Lila Reyes Primary Care Provider Encounter Details Date Type Department Care Team Description 02/20/2020 Anesthesia [facility] Terry Rosas MD [address] [place] [address] Electrophysiology Abimbola Alarcon, LAUREL [address] [place] [address], [address] [place] [address] Allergies Active Allergy Reactions [...] as of this encounter (statuses as of 03/05/2020) Medications Medication Sig Dispensed Refills Start Date [...] as of this encounter (statuses as of 03/05/2020) Active Problems Problem Noted Date Syncope 10/29/2019 [...] Added automatically from request for yara arslan [id number] Abdominal pain, unspecified abdominal location 018 Overview: Added automatically from request for yara arslan [id number] Nausea and vomiting, intractability of vomiting not sp ecified, unspecified 07/13/2018 vomiting type Overview: Added automatically from request for yara arslan [id number] Chest pain 04/27/2018 Essential hypertension 04/27/2018 Pacemaker 04/27/2018 PAF (paroxysmal atrial fibrillation) 04/27/2018 History of cardiac pacemaker in situ 08/23/2017 Tachycardia, unspecified 06/22/2017 Elevated liver enzymes 07/23/2014 Pseudoseizure 04/15/2014 Left sided numbness 03/22/2014 Prediabetes 09/24/2013 Loss of weight 09/24/2013 Hypothyroidism 09/24/2013 Overview: ICD10 Diagnosis Term Deck Scaler Utility Hypoglycemia 08/21/2013 Overview: ICD10 Diagnosis Term Deck Scaler Utility documented as of this encounter (statuses as of 03/05/2020) Resolved Problems Problem Noted Date Resolved Date Metabolic syndrome X 07/23/2014 07/23/2014 documented as of this encounter (statuses as of 03/05/2020) Immunizations Name Administration Dates Next Due Pneumococcal [...] Cardiology Navi Hines MD [address] [place] [phone] Health Maintenance Due Date Last Done Comments VARICELLA VACCINES (1 of 2 - 2-dose childhood series) 1982 DTaP,Tdap,and Td Vaccines (1 - Tdap) 1992 PAP SMEAR 06/21/2007 06/21/2004 INFLUENZA VACCINE (Season Ended) 2020 11/16/2015 Depression Screening 12/09/2020 12/10/2019 PNEUMOCOCCAL 0-64 YEARS COMBINED SERIES Completed 06/23/20 17 documented as of this encounter Implants Implanted Type Area Mobile Ui/Ux Designer Device Identifier Shelf Exp iration Model / Serial Date / Lot Pacemaker documented as of this encounter Results Not on filedocumented in this encounter Administered Medications Medication Order MAR Action Action Date Dose Rate Site FENTanyl PF (SUBLIMAZE (PF)) Given 02/20/2020 5:48 PM CDT 50 mc g injection Slow IV Push, ONCE INTRA PROCEDURE, Starting Joellen 02/20/20 at 1605, Until Joellen 02/20/20 at 1803, Routine, Intra-op Given 02/20/2020 5:44 PM CDT 50 mcg Given 02/20/2020 4:34 PM CDT 50 mcg isoproterenol (ISUPREL) injection New Bag 02/20/2020 5:25 PM 2 mcg/min 0.6 mL/hr CONTINUOUS PRN, Starting Joellen CDT 02/20/20 at 1725, Until Joellen 02/20/20 at 1803, Routine, Intra-op lactated ringers IV infusion New Bag 02/20/2020 3:59 PM CDT IV Infusion, CONTINUOUS PRN, Starting Joellen 02/20/20 at 1559, Until Joellen 02/20/20 at 1803, Routine, Intra-op midazolam (VERSED) injection Given 02/20/2020 5:55 PM CDT 2 mg ONCE INTRA PROCEDURE, Starting Joellen 02/20/20 at 1559, Until Joellen 02/20/20 at 1803, Routine, Intra-op Given 02/20/2020 3:59 PM CDT 2 mg propofol IV infusion Rate Change 02/20/2020 4:15 100 mcg/kg/min 30 mL/hr CONTINUOUS PRN, Starting Joellen PM CDT 02/20/20 at 1606, Until Joellen 02/20/20 at 1803, Routine, Intra-op New Bag 02/20/2020 4:06 PM CDT 100 mcg/kg/min 30 mL/hr documented in this encounter Insurance Payer Benefit Plan / Subscriber ID Effective Phone Address T [facility] Group Dates SOLORIO SOLORIO xxxxxxxxx 2011-Kobe PERALTA Medic [place] [id number] MANAGED MEDICAID [place], [place] documented as of this encounter
--- OUTSIDE RECORDS SUMMARY | 2020-03-17 07:26 | XMS REPORT | Summary of Care ---
:1980 Author Organization [facility] Address [address] [place] [address] Care Team Providers Name Role Phone Joshua Reyes Insurance Hmo Lila Reyes Primary Care Provider Encounter Details Date Type Department Care Team Description 02/20/2020 Anesthesia [facility] Terry Rosas MD [address] [place] [address] Electrophysiology Abimbola Alarcon, LAUREL [address] [place] [address], [address] [place] [address] Allergies Active Allergy Reactions [...] Added automatically from request for yara arslan [id number] Abdominal pain, unspecified abdominal location 018 Overview: Added automatically from request for yara arslan [id number] Nausea and vomiting, intractability of vomiting not sp ecified, unspecified 07/13/2018 vomiting type Overview: Added automatically from request for yara arslan [id number] Chest pain 04/27/2018 Essential hypertension 04/27/2018 Pacemaker 04/27/2018 PAF (paroxysmal atrial fibrillation) 04/27/2018 History of cardiac pacemaker in situ 08/23/2017 Tachycardia, unspecified 06/22/2017 Elevated liver enzymes 07/23/2014 Pseudoseizure 04/15/2014 Left sided numbness 03/22/2014 Prediabetes 09/24/2013 Loss of weight 09/24/2013 Hypothyroidism 09/24/2013 Overview: ICD10 Diagnosis Term 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 Hypoglycemia 08/21/2013 Overview: ICD10 Diagnosis Term 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 documented as of this encounter (statuses [...] Cardiology Navi Hines MD [address] [place] [phone] Health Maintenance Due Date Last Done Comments VARICELLA VACCINES (1 of 2 - 2-dose childhood series) 1982 DTaP,Tdap,and Td Vaccines (1 - Tdap) 1992 PAP SMEAR 06/21/2007 06/21/2004 INFLUENZA VACCINE (Season Ended) 2020 11/16/2015 Depression Screening 12/09/2020 12/10/2019 PNEUMOCOCCAL 0-64 YEARS COMBINED SERIES Completed 06/23/20 17 documented as of this encounter Implants Implanted Type Area Repossessor Device Identifier Shelf Exp iration Model / [...] / Subscriber ID Effective Phone Address T [facility] Group Dates SOLORIO SOLORIO xxxxxxxxx 2011-Kobe PERALTA Medic [place] [id number] [place] MEDICA[place] documented as of this encounter
[2020-03-17 08:19] LABS: Absolute Lymphocytes (CBC) 1.9 K/uL (0.7-4.9); Basophils % 0.8 % (0-1.3); Hematocrit 40.3 % (36.0-45.0); Lymphocytes % 34.8 % (15.3-44.8); MPV 8.2 fL (7.6-11.3); RBC Red Blood Cell Count 4.71 M/uL (3.86-4.86)
[2020-03-17 08:44] LABS: BUN Blood Urea Nitrogen 9 mg/dL (7-18); Bicarbonate 28 mmol/L (21-32); Glucose Level 101 mg/dL (74-106); NT PRO-BNP 80 pg/mL (<125); Potassium 4.1 mmol/L (3.5-5.1); Sodium Level 140 mmol/L (136-145)
--- NOTE | 2020-03-17 09:22 | RAD REPORT ---
EXAM DESCRIPTION: RAD - Chest Single View - 03/17/2020 9:10 am CLINICAL HISTORY: COUGH COMPARISON: February 09 TECHNIQUE: AP portable chest image was obtained 03/17/2020 9:10 am . FINDINGS: Lung volumes are low. Lung base markings are accentuated by the shallow inspiration and ov erlying soft tissues. Right-sided pacemaker is in place. Heart and vasculature are normal. No measura ble pleural effusion and no pneumothorax. No acute bony abnormality seen. No acute aortic findings jenkins spected. IMPRESSION: No acute cardiopulmonary process. No significant change from comparison.
--- NOTE | 2020-03-17 09:27 | EDPHYS ---
Physician Documentation [facility] Name: Jenni Draper Age: 39 yrs Sex: Female : 1980 Arrival Date: 03/17/2020 Time: 07:08 Bed 8 Private MD: Diya Mora Atiq ED Physician Tanner Robbins HPI: 03/17 07:30 This 39 yrs old Female presents to ER via Unassigned with complaints of rn Shortness Of Breath, Cough. 07:30 The patient has shortness of breath with light activity. Onset: The symptoms/episode rn began/occurred 5 day(s) ago. Duration: The symptoms are intermittent. The patient's shortness of breath is aggravated by coughing, exertion, light activity, is alleviated by nothing. Severity of symptoms: At their worst the symptoms were moderate in the emergency department the symptoms are unchanged. The patient has experienced similar episodes in the past. The patient has not recently seen a physician. Reports cough, subjective fever and chills, began last , reports non-productive cough, has chronic bronchitis and asthma. Denies contact with PUI or COVID. not sick. No hemoptysis. . 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: 08:37 LMP N/A - Hysterectomy jl7 Historical: - Allergies: 07:33 Adhesives; iw 07:33 Aspirin; iw 07:33 Bactrim; iw 07:33 Benadryl; iw 07:33 Cipro IV; iw 07:33 Clindamycin; iw 07:33 coconut oil; iw 07:33 Detrol; iw 07:33 Diltiazem; iw 07:33 FISH PRODUCT DERIVATIVES; iw 07:33 GABAPENTIN; iw 07:33 Iodine; iw 07:33 Latex, Natural Rubber; iw 07:33 Morphine; iw 07:33 PENICILLINS; iw 07:33 Seroquel; iw 07:33 Sulfa (Sulfonamide Antibiotics); iw 07:33 Suprax; iw 07:33 tramadol; iw 07:33 Demerol; iw - PMHx: 07:33 Anemia; Anxiety; Asthma; Atrial Fib; Back pain; Bronchitis; Depression; dvt to left iw leg; High Cholesterol; Hypertension; HYPOGLYCEMIA; Hypothyroidism; internal heart monitor; Kidney stones; Migraines; mitral valve prolapse; Myocardial infarction; neuropathy; Pacemaker; Seizures; sick sinus syndrome; TIA; Upper Resp Infection; - PSHx: 08:39 Hysterectomy; jl7 - Immunization history:: Adult Immunizations up to date. - Social history:: Smoking status: Patient denies any tobacco usage or history of. - Family history:: not pertinent. - Hospitalizations: : No recent hospitalization is reported. ROS: 07:30 Constitutional: + fever and chills Eyes: Negative for injury, pain, redness, and airborne missions systems, ENT: + sore throat Neck: Negative for injury, pain, and swelling, Cardiovascular: Negative for chest pain, palpitations, and edema, Respiratory: + cough and sob Abdomen/GI: Negative for abdominal pain, nausea, vomiting, diarrhea, and constipation, : Negative for injury, bleeding, discharge, and swelling, MS/Extremity: Negative for injury and deformity, Skin: Negative for injury, rash, and discoloration, Neuro: Negative for headache, numbness, tingling, and seizure. Exam: 07:30 Constitutional: This is a well developed, well nourished patient who is awake, alert, rn and in no acute distress. Ambulatory to room without difficulty or assistance. Head/Face: Normocephalic, atraumatic. Neck: Trachea midline, no cervical lymphadenopathy. Supple, full range of motion without nuchal rigidity, or vertebral point tenderness. No Meningismus. Cardiovascular: Regular rate and rhythm. No pulse deficits. Respiratory: + coarse bilateral breath sounds, faint wheeze, no retractions, speaking full sentences. Skin: Warm, dry MS/ Extremity: Pulses equal, no cyanosis. Neuro: Awake and alert, GCS 15 Vital Signs: 07:27 BP 128 / 86; Pulse 87; Resp 18 S; Temp 98.2; Pulse Ox 100% on R/A; iw 08:20 BP 124 / 93; Pulse 98; Resp 19 S; Pulse Ox 100% on R/A; jl7 09:35 BP 109 / 77; Pulse 98; Resp 17; Pulse Ox 100% ; jl7 MDM: 07:15 Patient medically screened. rn 09:20 Differential diagnosis: asthma, Bronchitis CHF exacerbation, Chronic Obstructive rn Pulmonary Disease Pneumothorax pulmonary edema, reactive airway disease. Data reviewed: vital signs, nurses notes, lab test result(s), radiologic studies, plain films, and as a result, I will discharge patient. Test interpretation: by ED physician or midlevel provider: plain radiologic studies, CXR neg for pneumonia, + bilateral interstitial prominence. Counseling: I had a detailed discussion with the patient and/or guardian regarding: the historical points, exam findings, and any diagnostic results supporting the discharge/admit diagnosis, lab results, radiology results, the need for outpatient follow up, to return to the emergency department if symptoms worsen or persist or if there are any questions or concerns that arise at home. Response to treatment: the patient's symptoms have markedly improved after treatment, and as a result, I will discharge patient. Special discussion: I discussed with the patient/guardian in detail that at this point there is no indication for admission to the hospital. It is understood, however, that if the symptoms persist or worsen the patient needs to return immediately for re-evaluation. ED course: Pt improved, sitting with legs crossed, using phone, speaking full sentences, no oxygen requirement. Will dc home with abx, prednisone, and albuterol. Will f/u with her lung specialist. COVID pending. Neg flu/strep, normal WBC/BNP. 03/17 07:30 Order name: COVID-19 03/17 07:30 Order name: Flu; Complete Time: 09:05 03/17 07:30 Order name: Strep; Complete Time: 09:05 03/17 07:30 Order name: CBC with Diff; Complete Time: 08:26 03/17 07:30 Order name: Basic Metabolic Panel; Complete Time: 08:53 03/17 07:30 Order name: Procalcitonin; Complete Time: 09:26 03/17 07:30 Order name: CXR XRAY; Complete Time: 09:26 03/17 07:30 Order name: Droplet/Contact Precautions; Complete Time: 08:18 rn 03/17 07:30 Order name: BNP; Complete Time: 08:53 03/17 07:32 Order name: [facility] 03/17 09:04 Order name: Throat Culture [facility] 03/17 07:30 Order name: Labs collected and sent; Complete Time: 08:18 03/17 07:30 Order name: O2 Per Protocol; Complete Time: 08:18 03/17 07:30 Order name: IV Start; Complete Time: 08:18 rn Administered Medications: 08:17 Drug: SOLU-Medrol 125 mg Route: IVP; Site: right hand; jl7 08:37 Follow up: Response: No adverse reaction jl7 08:17 Drug: Xopenex 1.25 mg Route: Inhalation; jl7 08:36 Follow up: Response: No adverse reaction jl7 Disposition: 03/17/20 09:26 Discharged to Home. Impression: Asthma, Bronchitis, not specified as acute or chronic. - Condition is Stable. - Discharge Instructions: Acute Bronchitis, Adult, Cough, Adult. - Prescriptions for Prednisone 20 mg Oral Tablet - take 3 tablet by ORAL route once daily for 5 days; 15 tablet. Albuterol Sulfate 2.5 mg /3 mL (0.083 %) Inhalation Solution for Nebulization - inhale 1 unit by NEBULIZATION route every 8 hours As needed; 1 box. Zithromax Z- Juliocesar 250 mg Oral Tablet - take 1 tablet by ORAL route as directed for 5 days Day 1 - take two (2) tablets one time. Day 2, 3, 4 , 5 take one (1) tablet once daily.; 6 tablet. - Medication Reconciliation Form, Thank You Letter, Antibiotic Education, Prescription Opioid Use, Work release form form. - Follow up: Private Physician; When: As needed; Reason: Recheck today's complaints, Re-evaluation by your physician. - Problem is new. - Symptoms have improved. Signatures: Dispatcher [employer] EDFlor De La Vega RN RN iw Nieto, Roman, MD MD rn Leal, Jahala, RN RN jl7 Corrections: (The following items were deleted from the chart) 09:36 09:26 03/17/2020 09:26 Discharged to Home. Impression: Asthma; Bronchitis, not jl7 specified as acute or chronic. Condition is Stable. Discharge Instructions: Acute Bronchitis, Adult, Cough, Adult. Prescriptions for Prednisone 20 mg Oral Tablet - take 3 tablet by ORAL route once daily for 5 days; 15 tablet, Albuterol Sulfate 2.5 mg /3 mL (0.083 %) Inhalation Solution for Nebulization - inhale 1 unit by NEBULIZATION route every 8 hours As needed; 1 box, Zithromax Z-Juliocesar 250 mg Oral Tablet - take 1 tablet by ORAL route as directed for 5 days Day 1 - take two (2) tablets one time. Day 2, 3, 4 , 5 take one (1) tablet once daily.; 6 tablet. and Forms are Medication Reconciliation Form, Thank You Letter, Antibiotic Education, Prescription Opioid Use. Follow up: Private Physician; When: As needed; Reason: Recheck today's complaints, Re-evaluation by your physician. Problem is new. Symptoms have improved. rn 11:06 09:36 03/17/2020 09:26 Discharged to Home. Impression: Asthma; Bronchitis, not jl7 specified as acute or chronic. Condition is Stable. Discharge Instructions: Acute Bronchitis, Adult, Cough, Adult. Prescriptions for Prednisone 20 mg Oral Tablet - take 3 tablet by ORAL route once daily for 5 days; 15 tablet, Albuterol Sulfate 2.5 mg /3 mL (0.083 %) Inhalation Solution for Nebulization - inhale 1 unit by NEBULIZATION route every 8 hours As needed; 1 box, Zithromax Z-Juliocesar 250 mg Oral Tablet - take 1 tablet by ORAL route as directed for 5 days Day 1 - take two (2) tablets one time. Day 2, 3, 4 , 5 take one (1) tablet once daily.; 6 tablet. and Forms are Medication Reconciliation Form, Thank You Letter, Antibiotic Education, Prescription Opioid Use. Follow up: Private Physician; When: As needed; Reason: Recheck today's complaints, Re-evaluation by your physician. Problem is new. Symptoms have improved. jl7 11:09 11:06 03/17/2020 09:26 Discharged to Home. Impression: Asthma; Bronchitis, not iw specified as acute or chronic. Condition is Stable. Discharge Instructions: Acute Bronchitis, Adult, Cough, Adult. Prescriptions for Prednisone 20 mg Oral Tablet - take 3 tablet by ORAL route once daily for 5 days; 15 tablet, Albuterol Sulfate 2.5 mg /3 mL (0.083 %) Inhalation Solution for Nebulization - inhale 1 unit by NEBULIZATION route every 8 hours As needed; 1 box, Zithromax Z-Juliocesar 250 mg Oral Tablet - take 1 tablet by ORAL route as directed for 5 days Day 1 - take two (2) tablets one time. Day 2, 3, 4 , 5 take one (1) tablet once daily.; 6 tablet. and Forms are Medication Reconciliation Form, Thank You Letter, Antibiotic Education, Prescription Opioid Use, Work release form. Follow up: Private Physician; When: As needed; Reason: Recheck today's complaints, Re-evaluation by your physician. Problem is new. Symptoms have improved. jl7
--- NOTE | 2020-03-17 09:27 | ER ---
Nurse's Notes [facility] Name: Jenni Draper Age: 39 yrs Sex: Female : 1980 Arrival Date: 03/17/2020 Time: 07:08 Bed 8 Private MD: Diya Mora Atiq Diagnosis: Asthma;Bronchitis, not specified as acute or chronic Presentation: 03/17 07:27 Chief complaint: Patient states: non productive cough and SOB since , feels iw hot and has chills. Coronavirus screen: Surgical mask placed on patient. Patient moved to private room, placed in contact and droplet isolation with eye protection until further assessment. Patient reports a cough. Patient reports shortness of breath or difficulty breathing. Patient denies measured and/or subjective temperature greater than 100.4F prior to today's visit. Patient denies travel on a cruise ship or to a country the [facility] currently lists as an affected area. Patient denies contact with known and/or suspected case of COVID-19. Ebola Screen: Patient negative for fever greater than or equal to 101.5 degrees Fahrenheit, and additional compatible Ebola Virus Disease symptoms Patient denies exposure to infectious person. Patient denies travel to an Ebola-affected area in the 21 days before illness onset. No symptoms or risks identified at this time. Initial Sepsis Screen: Does the patient meet any 2 criteria? No. Patient's initial sepsis screen is negative. Does the patient have a suspected source of infection? No. Patient's initial sepsis screen is negative. Risk Assessment: Do you want to hurt yourself or someone else? Patient reports no desire to harm self or others. Onset of symptoms was March 12, 2020. 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: 08:37 LMP N/A - Hysterectomy jl7 Historical: - Allergies: 07:33 Adhesives; 07:33 Aspirin; 07:33 Bactrim; 07:33 Benadryl; 07:33 Cipro IV; 07:33 Clindamycin; iw 07:33 coconut oil; 07:33 Detrol; 07:33 Diltiazem; 07:33 FISH PRODUCT DERIVATIVES; 07:33 GABAPENTIN; 07:33 Iodine; iw 07:33 Latex, Natural Rubber; iw 07:33 Morphine; iw 07:33 PENICILLINS; iw 07:33 Seroquel; iw 07:33 Sulfa (Sulfonamide Antibiotics); iw 07:33 Suprax; iw 07:33 tramadol; iw 07:33 Demerol; iw - PMHx: 07:33 Anemia; Anxiety; Asthma; Atrial Fib; Back pain; Bronchitis; Depression; dvt to left iw leg; High Cholesterol; Hypertension; HYPOGLYCEMIA; Hypothyroidism; internal heart monitor; Kidney stones; Migraines; mitral valve prolapse; Myocardial infarction; neuropathy; Pacemaker; Seizures; sick sinus syndrome; TIA; Upper Resp Infection; - PSHx: 08:39 Hysterectomy; jl7 - Immunization history:: Adult Immunizations up to date. - Social history:: Smoking status: Patient denies any tobacco usage or history of. - Family history:: not pertinent. - Hospitalizations: : No recent hospitalization is reported. Screenin:20 Abuse screen: Denies threats or abuse. Denies injuries from another. Nutritional jl7 screening: No deficits noted. Tuberculosis screening: No symptoms or risk factors identified. Fall Risk IV access (20 points). Total Jolly Fall Scale indicates No Risk (0-24 pts). Assessment: 07:45 General: Appears in no apparent distress. uncomfortable, Behavior is calm, cooperative, jl7 appropriate for age. Pain: Denies pain. Neuro: Level of Consciousness is awake, alert, obeys commands, Oriented to person, place, time, situation. Cardiovascular: Patient's skin is warm and dry. Rhythm is regular. Respiratory: Reports shortness of breath cough that is non-productive, Airway is patent Respiratory effort is even, unlabored, Respiratory pattern is regular, symmetrical, not auscultated. GI: No signs and/or symptoms were reported involving the gastrointestinal system. : No signs and/or symptoms were reported regarding the genitourinary system. EENT: No signs and/or symptoms were reported regarding the EENT system. Oral mucosa is dry. Poor dentition noted. Throat is clear. Derm: Skin is pink, warm \T\ dry. Musculoskeletal: No signs and/or symptoms reported regarding the musculoskeletal system. 08:26 Reassessment: Patient appears in no apparent distress at this time. Patient and/or hb family updated on plan of care and expected duration. Pain level reassessed. Patient is alert, oriented x 3, equal unlabored respirations, skin warm/dry/pink. Vital Signs: 07:27 BP 128 / 86; Pulse 87; Resp 18 S; Temp 98.2; Pulse Ox 100% on R/A; iw 08:20 BP 124 / 93; Pulse 98; Resp 19 S; Pulse Ox 100% on R/A; jl7 09:35 BP 109 / 77; Pulse 98; Resp 17; Pulse Ox 100% ; jl7 ED Course: 07:08 Patient arrived in ED. as 07:08 Diya Mora MD is Private Physician. as 07:15 Tanner Robbins MD is Attending Physician. rn 07:30 Taz Montano RN is Primary Nurse. jl7 07:32 Triage completed. iw 07:33 Arm band placed on. iw 08:18 COVID-19 Sent. jl7 08:20 Patient has correct armband on for positive identification. Bed in low position. Call jl7 light in reach. Side rails up X 1. Pulse ox on. NIBP on. 08:20 Initial lab(s) drawn, by nm, sent to lab. Flu and/or RSV swab sent to lab. Strep swab jl7 sent to lab. COVID-19 swab sent to lab. Inserted saline lock: 22 gauge in right hand, using aseptic technique. Blood collected. 09:10 CXR XRAY In Process Unspecified. EDMS 09:35 No provider procedures requiring assistance completed. IV discontinued, intact, jl7 bleeding controlled, No redness/swelling at site. Pressure dressing applied. Administered Medications: 08:17 Drug: SOLU-Medrol 125 mg Route: IVP; Site: right hand; jl7 08:37 Follow up: Response: No adverse reaction jl7 08:17 Drug: Xopenex 1.25 mg Route: Inhalation; jl7 08:36 Follow up: Response: No adverse reaction jl7 Outcome: 09:26 Discharge ordered by . rn 09:35 Discharged to home ambulatory. jl7 09:35 Condition: stable 09:35 Discharge instructions given to patient, Instructed on discharge instructions, follow up and referral plans. medication usage, Demonstrated understanding of instructions, follow-up care, medications, Prescriptions given X 3. 09:36 Patient left the ED. jl7 11:06 Patient left the ED. jl7 11:09 Patient left the ED. iw Addendum: 03/19/2020 15:30 Addendum: Other pt notified of negative COVID 19 swab resutls. Pt advised to remain in d m5 isolation until symptom free for 3 days and to return to the ED for worsening symptoms. Signatures: Dispatcher [employer] Nae Olvera RN RN dm5 Swetha Rodriguez Irene, RN RN iw Tanner Robbins MD MD rn Baxter, Heather, RN RN hb Leal, Jahala RN RN jl7
[2020-03-17 10:06] VITALS: TEMP 98.2; O2SAT 100
[2020-03-17 10:08] VITALS: BP 109/77
== END 2020-03-17 11:09 | disposition home or self-care (01) ==
LOC: ER 07:06
DX: J45.909 Unspecified asthma, uncomplicated (principal); Z20.828 Contact with and (suspected) exposure to other viral communicable diseases; Z88.0 Allergy status to penicillin; Z88.1 Allergy status to other antibiotic agents; Z88.2 Allergy status to sulfonamides; Z88.6 Allergy status to analgesic agent; Z88.8 Allergy status to other drugs, medicaments and biological substances; Z91.013 Allergy to seafood; I10 Essential (primary) hypertension; Z95.0 Presence of cardiac pacemaker
CPT/HCPCS: 87070; 85025; 80048; 36415; 87081; 84145; 83880; 87804 ×2; 71045; 96374; 99284; U0001

== ENCOUNTER 2020-05-08 21:04 | Emergency (ER) | payer MEDICAID, OTHER ==
--- OUTSIDE RECORDS SUMMARY | 2020-05-08 21:07 | XMS REPORT | Clinical Summary ---
:1980 Author Organization [facility] Address [address] [place] [address] Care Team Providers Name Role Phone Unavailable [...] Comments CERVICAL CANCER SCREENING 2002 INFLUENZA VACCINE 05/26/2020 Results Not on fileafter 05/08/2019 Advance Directives For more information, please contact: [phone] Type Date Recorded Patient Associate Doctor Explanati on Advance Directives, Living Will and Medical Power of Media Analyst
--- OUTSIDE RECORDS SUMMARY | 2020-05-08 21:07 | XMS REPORT | Clinical Summary ---
:1980 Author Organization [facility] Address [address] [place] [address] Care Team Providers Name Role Phone Yoni [...] Not on file Results Not on fileafter 05/08/2019 Insurance Payer Benefit Plan / Group Subscriber ID Type Phone A ascencion SOL[place]IO MEDICAID MEDICAID SOLORIO xxxxxxxxx Advance Directives For more information, please contact:[facility] [place], [place] [phone] Code Status Date Activated Date Inactivated Comments Full Code 08/17/2018 7:42 PM This code status was determined by: Patient
--- OUTSIDE RECORDS SUMMARY | 2020-05-08 21:08 | XMS REPORT | Continuity of Care Document ---
:1980 Author Organization [facility] t Address [address] [place] [address] Care Team Providers Name Role Phone MILTON Primary Care Physician Unavailable Donny LARSEN, K.H. Attending Clinician Doctor Unassigned, Name Attending Clinician Unavailable LEONOR Attending Clinician Unavailable BADAR Attending Clinician [...] adverse 00:00: confusion Medica l reaction 00 [facility] Tolterod Propensi Active Rash 2017-[address] [facility] [facility] ty to 10-17 [facility] - adverse 00:00: Medical reaction 00 [facility] Gabapent Propensi Active Shortness Of 2017-[address] in ty to Breath, Rash 10-17 [facility] - adverse 00:00: Medical reaction 00 [facility] Iodine Propensi Active Rash 2017-[address] [facility] And ty to 10-17 [facility] - Iodide adverse 00:00: Medical Containi reaction 00 [facility] ng s Products Latex Propensi Active Rash 2017-[address] ty to 10-17 [facility] - adverse 00:00: Medical reaction 00 Center s Morphine Propensi Active Anaphylaxis 2017-[address] ty to 10-17 [facility] - adverse 00:00: Medical reaction 00 Center s Penicill Propensi Active Anaphylaxis 2017-[address] ins ty to 10-17 [facility] - adverse 00:00: Medical reaction 00 Center s Quetiapi Propensi Active 2017-[address] ne ty to 10-17 [facility] - adverse 00:00: Medical reaction 00 Center s Sulfa Propensi Active Rash 2017-[address] [facility] (Sulfona ty to 10-17 [facility] - mide adverse 00:00: Medical Antibiot reaction 00 Center ics) s Cefixime Propensi Active Rash 2017-[address] [facility] ty to 10-17 [facility] - adverse 00:00: Medical reaction 00 Center s Tramadol Propensi Active Rash 2017-[address] [facility] ty to 10-17 [facility] - adverse 00:00: Medical reaction 00 Center s Social History Social Habit Start Date Stop Date Quantity Comments Source History SDOH [place] [facility] Sex Assigned At [facility] Alcohol intake 2018-09-04 2018-09-04 Current [place] [facility] 00:00:00 00:00:00 non-drinker of alcohol (finding) History SDOH 2018-09-04 2018-09-04 1 [place] [facility] Alcohol Frequency 00:00:00 00:00:00 Smoking Status Start Date Stop Date Source Former smoker 2018-09-04 00:00:00 2018-09-04 00:00:00 [place] [facility] Medications Ordered Filled Start Stop Current Ordering [...] times a day. busPIRone 2017-09 Yes 15mg Q.[id number] Take 15 mg [facility] (BUSPAR) 10 2-11 [id number] by mouth 3 [facility] MG tablet 19:13: [...] via Med ical HFA) 90 07 inhaler. [facility] mcg/actuati on inhaler levETIRAcet 2017-09 Yes 1000mg [...] 10 mg 18:45: daily. Medical tablet 43 [place] pregabalin 2017-09 Yes 25mg QD Take [address] (LYRICA) 25 -23 by mouth [facility] - MG capsule 18:45: nightly. Med ical 43 [place] busPIRone 2017-09 Yes 15mg Q.5D Take 15 [...] 18:45: Bronchitis mouth Medica l 42 daily. [place] digoxin 2017-09 Yes 125ug QD Take 125 [facility] (LANOXIN) 1-23 mcg by [facility] - 0.125 MG 18:45: mouth Medical tablet 42 daily. [place] venlafaxine 2017-09 Yes 150mg QD Take [address] (EFFEXOR-XR 1-23 mg by [facility] - ) 150 MG 24 18:45: mouth Medic al hr capsule 42 daily. [place] apixaban 2017-09 Yes 5mg QD Take [address] [facility] (ELIQUIS) 5 -23 by mouth [facility] - mg Tab 18:45: daily. Medical tablet 42 [facility] ARIPiprazol 2017-09 Yes 10mg QD Take [address] [facility] e (ABILIFY) -23 by mouth [facility] - 10 MG 18:45: daily. Medical disintegrat 41 [facility] ing tablet ARIPiprazol 2017-09 Yes 5mg QD Take [address] e (ABILIFY) 1-23 by mouth [facility] - 5 MG tablet 18:45: nightly. Me dical 41 [facility] albuterol 2017-09 Yes 1{ampul Q.16230520 Take [address] (ACCUNEB) 1-23 e} [id number] ampule by [facility] - 1.25 mg/3 18:45: [...] 18:45: daily as Me dical 41 needed. [place] fluticasone 2017-09 Yes 1{puff} QD Inhale [address] -vilanterol 1-23 puff by [facility] - (BREO 18:45: mouth via Medical ELLIPTA) 41 inhaler Center 100-25 daily. mcg/dose DsDv Procedures This patient has no known procedures. Plan of Care Planned Activity Planned Date Details Comments Source Future Scheduled 2020-05-26 INFLUENZA VACCINE Percy Ortiz Test 00:00:00 [code = INFLUENZA VACCINE] Future Scheduled 2002 [facility] Test 00:00:00 malignant neoplasm of cervix (procedure) [code = 809021561] Encounters Start End Encounter Admission Attending Care Care Encounter Source Date/Time Date/Time Type Type Clinicians Facility Department ID 2020-04-29 2020-04-29 [id number] 00:00:00 00:00:00 Navi Stafford [id number] [place] [id number] Professio [phone] [facility] 2020-04-14 2020-04-14 Telephone Donny RUST [id number] 00:00:00 00:00:00 Navi [place] [id number] [place] [id number] Professio [phone] [address] 2020-04-14 2020-04-14 Orders Doctor NURYS [id number] 00:00:00 00:00:00 Only Unassigned, PINKY [id number] [place] [facility] [id number] [phone] [id number] 2020-04-10 2020-04-10 [facility] [id number] 09:43:51 10:36:50 Visit Navi Stafford [id number] [place] [id number] Professio [phone] nal 9 [facility] 2017-09-06 2017-09-08 Inpatient E [facility] [id number] [address] 10:12:00 02:32:00 [facility] Results Test Description Test Time Test Comments Results Result Comments Source POCT-GLUCOSE METER 2018-08-21 10:22:00 Test Item Value Reference Range Interpretation Comme nts POC-GLUCOSE METER (ARNOL) (test 102 mg/dL 70-110 TESTED AT [facility] [address] [facility] [place] code = 1538) [facility] 7703 0 MR, MRA, BRAIN, WITHOUT [id number] 09:32:00Reason for exam:->Ischemic Stroke EvaluationFINAL REPORT MRA Head CLINICAL HISTORY: Ischemic Stroke TECHNIQUE: MRA of the head utilizing 3-D ocip-ku-bszvhi technique, with 3-D reconstructions. COMPARISON: None FINDINGS: There is no evidence of intracranial aneurysm, focal stenosis, or major branch vessel occlusion. IMPRESSION: No evidence for a major [place] proximal branch vessel occlusion. MRA Neck CLINICAL HISTORY: Ischemic Stroke TECHNIQUE: MRA of the neck utilizing 2-D and 3-D bfqb-iz-fdpvmt technique, with 3-D reconstructions. COMPARISON: None FINDINGS: The carotid arteries in the neck are patent including their bifurcations. There is antegrade flow in the vertebral arteries in the neck. IMPRESSION: No evidence of hemodynamically significant stenosis in the cervical carotid or vertebral arteries by NASCET criteria. Signed: Santos Neff Verified Date/Time: 08/21/2018 09:32:09 Reading Location: [address] Neuro Reading Room MR, MRA, NECK, WITHOUT IV [id number] 09:32:00Reason for exam:->Ischemic Stroke EvaluationFINAL REPORT MRA Head CLINICAL HISTORY: Ischemic Stroke TECHNIQUE: MRA of the head utilizing 3-D fixe-yd-rxeuft technique, with 3-D reconstructions. COMPARISON: None FINDINGS: There is no evidence of intracranial aneurysm, focal stenosis, or major branch vessel occlusion. IMPRESSION: No evidence for a major [place] proximal branch vessel occlusion. MRA Neck CLINICAL HISTORY: Ischemic Stroke TECHNIQUE: MRA of the neck utilizing 2-D and 3-D egvd-ny-qhhefs technique, with 3-D reconstructions. COMPARISON: None FINDINGS: The carotid arteries in the neck are patent including their bifurcations. There is antegrade flow in the vertebral arteries in the neck. IMPRESSION: No evidence of hemodynamically significant stenosis in the cervical carotid or vertebral arteries by NASCET criteria. Signed: Santos Neff Verified Date/Time: 08/21/2018 09:32:09 Reading Location: [address] Neuro Reading Room MR, BRAIN, WITHOUT [id number] 09:25:00Reason for exam:- >Ischemic Stroke EvaluationFINAL REPORT [...] Acute on chronic pansinusitis. Signed: Santos Neff MDReport Verified Date/Time: 08/21/2018 09:25:25 Reading Location: [address] POCT-GLUCOSE [id number] 21:26:00 Test Item Value Reference Range Interpretation Comments POC-GLUCOSE METER 119 mg/dL 70-110 H TESTED AT [place] [address] ([facility]) (test code = AYLIN Rivera [facility] 1538) [address] POCT-GLUCOSE [id number] 18:03:00 Test Item Value Reference Range Interpretation Comments POC-GLUCOSE METER 119 mg/dL 70-110 H TESTED AT [place] [address] ([facility]) (test code = AYLIN Rivera [facility] 1538) [address] POCT-GLUCOSE [id number] 12:39:00 Test Item Value Reference Range Interpretation Comments POC-GLUCOSE METER 120 mg/dL 70-110 H TESTED AT [place] [address] ([facility]) (test code = [facility] Miguel [facility] 1538) [address] RAD, CHEST, 1 VIEW, NON [id number] 12:04:00Reason for exam:->To Locate Heart Device (Pacemaker)Should [...] .Additional findings: None. Signed: JR Garcia Robert MDReport Verified Date/Time: 08/20/2018 12:04:06 Reading Location: [facility] Radiology Reading Room POCT-GLUCOSE [id number] 09:17:00 Test Item Value Reference Range Interpretation Comments POC-GLUCOSE METER 121 mg/dL 70-110 H TESTED AT [place] [address] ([facility]) (test code = [facility] 1538) [address] BASIC METABOLIC [id number] 06:56:00 Test Item Value Reference Range Interpretation [...] NOT APPLICABLE FOR DIALYSIS PATIEN TS. POCT-GLUCOSE [id number] 21:09:00 Test Item Value Reference Range Interpretation Comments POC-GLUCOSE METER 109 mg/dL 70-110 TESTED AT [facility] 6720 ([facility]) (test code = [facility] [address] POCT-GLUCOSE [id number] 17:15:00 Test Item Value Reference Range Interpretation Comments POC-GLUCOSE METER 117 mg/dL 70-110 H TESTED AT [facility] 6720 (BEAKER) (test code = AYLIN Rivera [facility] 1538) [address] VITAMIN B12 AND [id number] 06:39:00 Test Item Value Reference Range Interpretation Comments VITAMIN B12 (BEAKER) (test code = 524 pg/mL 213-816 774) FOLATE (BEAKER) (test code = 362) 13.5 ng/mL >=7.0 BASIC METABOLIC [id number] 05:48:00 Test Item Value Reference Range Interpretation [...] S NOT APPLICABLE FOR DIALYSIS PATIEN TS. [id number] 15:42:00 Test Item Value Reference Range Interpretation Comments RPR SCREEN (BEAKER) (test code = Nonreactive Nonreactive 420) HEMOGLOBIN [id number] 09:14:00 Test Item Value Reference Range Interpretation Comments HEMOGLOBIN A1C (BEAKER) (test code = 5.3 % 4.3-6.1 368) TSH/FREE T4 IF [id number] 04:49:00 Test Item Value Reference Range Interpretation Comments THYROID STIMULATING HORMONE 3.18 uIU/mL 0.35-4.94 (BEAKER) (test code = 772) BASIC METABOLIC [id number] 04:38:00 Test Item Value Reference Range Interpretation [...] NOT APPLICABLE FOR DIALYSIS PATIEN TS. LIPID [id number] 04:38:00 Test Item Value Reference Range Interpretation [...] 130-159 High 160-189 Very High >=190HEPATIC FUNCTION [id number] 04:38:00 Test Item Value Reference Range Interpretation [...] (test code = 413) AFB Culture and [id number] 13:24:00Specimen/Source: Wound/PACEMAKERCollected: 09/05/2017 19:45 Status: Final Last Updated: 11/01/2017 13:24 GZT-Ohvvs-Agyiefzbaywg (Final) (Final) 09/07/17 No acid fast bacill seen on direct smear Culture Result (Final) (Final) 11/01/17 No growth of AFB at six (6) weeksFungus Culture with [id number] 12:12:00 Specimen/Source: Wound/PACEMAKERCollected: 09/05/2017 19:45 Status: Final Last Updated: 10/22/2017 12:12 Fungal Smear Result (Final) (Final) 09/06/17 No yeast or hyphae seen Culture Result (Final) (Final) 10/22/17 No fungus isolated at 6 weeksCulture, Blood [id number] 08:23:00Specimen: BloodCollected: 09/04/2017 20:30 Status: Final Last Updated: 09/10/2017 08:23 Culture Result (Final) (Final) No Growth After 5 DaysCulture, Blood [id number] 08:23:00Specimen: BloodCollected: 09/04/2017 20:15 Status: Final Last Updated: 09/10/2017 08:23 Culture Result (Final) (Final) No Growth After 5 DaysCulture, Wound [id number] 08:52:00Specimen: WoundCollected: 09/05/2017 19:45 Status: Final Last Updated: 09/08/2017 08:52 Gram Stain (Final) (Final) 09/06/17 No organisms seen, Few WBC's Culture Result (Final) (Final) 09/08/17 Anaerobic culture:No anaerobes isolated at 3 days Isolate (Final) (Final) 09/07/17Few Staph-coag positive Isolate Staph-coag positive JERMAINE (mcg/ml) Amoxicillin/Clav (AUG)<=4/2 Susceptible Ampicillin (AM) >8 Resistant Ampicillin/Sulb (A/S) <=8/4 Susceptible Cefazolin (CFZ) <=4 Susceptible Ceftriaxone (RARE/ENDANGERED SPECIES SPECIALIST) <=4 Susceptible Chloramphenicol (C) <=8 Susceptible Ciprofloxacin (CP) <=1 Susceptible Clindamycin (CM) 0.5 Susceptible Erythromycin (E) <=0.25 Susceptible Gentamicin (GM) <=1 Susceptible Imipenem (IMP) <=4 Susceptible Levofloxacin (LEV) <=0.5 Susceptible Linezolid (LNZ) 4 Susceptible Oxacillin (OX1) 0.5 Susceptible Penicillin (P) >8 Resistant Rifampin (RA) <=1 Susceptible Tetracycline (TE) <=1 Susceptible Trimethoprim/Sulfa <=0.5/9.Susceptible (SXT) 5 Vancomycin (VA) 2 SusceptibleRenal [id number] 08:51:00 Test Item Value Reference Range Interpretation [...] is not provided , and the patient isAfrican-Amomar can, multiply by 1.2 12. If sex is not prov ided, and thepatient is female, multipl y by 0.742. Results for patients <18 ye ars ofage have not been validated by e MDRD study and horace d be interpretedwith caution.eGFR Re sult Interpretation: eGFR > or = 60 is in t he Normal RangeeGF R < 60 may mean kidney diseaseeGFR < 1 5 may mean kidney failureRange s recommended by the National Kidney Foundation,http ://nkd ep.nih.gov CBC with [id number] 07:39:00 Test Item Value Reference Range Interpretation [...] code = ALYMPH) 1.7 K/cumm 0.5-4.6 N Camp Abs (test code = AMONO) 0.3 K/cumm 0.0-1.2 N Eos Abs (test code = AEOS) 0.29 K/cumm 0.00-0.74 N Baso Abs (test code = ABASO) 0.0 K/cumm 0.00-0.21 N Vancomycin, [id number] 12:33:00 Test Item Value Reference Range Interpretation Comments Vanco, Trou (test code = VANTR) 7.9 ug/mL 10.0-20.0 L Magnesium, [id number] 06:37:00 Test Item Value Reference Range Interpretation Comments Magnesium (test code = MG) 2.4 mg/dL 1.7-2.5 N Renal [id number] 06:29:00 Test Item Value Reference Range Interpretation [...] ars ofage have not been validated by fran faustin MDRD study and horace aponte be interpretedwith caution.eGFR Re sult Interpretation: eGFR > or = 60 is in t he Normal RangeeGF R < 60 may mean kidney diseaseeGFR < 1 5 may mean kidney failureRange s recommended by the National Kidney Foundation,http ://nkd ep.nih.gov BHCG, Serum, [id number] 06:26:00 Test Item Value Reference Range Interpretation Comments Preg Qual [Se] (test code = BSHCG) Negative Negative N CBC with [id number] 06:24:00 Test Item Value Reference Range Interpretation [...] code = ALYMPH) 1.6 K/cumm 0.5-4.6 N Camp Abs (test code = AMONO) 0.4 K/cumm 0.0-1.2 N Eos Abs (test code = AEOS) 0.18 K/cumm 0.00-0.74 N Baso Abs (test code = ABASO) 0.0 K/cumm 0.00-0.21 N XR CHEST 1 [id number] 16:29:55XR CHEST 1 VIEWLOCATION: [id number]: None.INDICATION: REVIEW PICC LINE PLACEMENTDISCUSSION:AP chest and [...] = TSH) 3.44 mIU/mL 0.270-4.200 N Lipid [id number] 05:47:00 Test Item Value Reference Range Interpretation Comments Cholesterol (test 160 mg/dL 0-200 N code = CHOL) Triglycerides (test 126 mg/dL 9-200 N code = TRIG) HDL (test code = 35 mg/dL 50-60 L HDL) Chol/HDL (test code 4.6 Ratio 0.0-4.4 H = CHOLPHDL) LDL, Calculated 100 0-130 N (NOTE)RISK O F HEART (test code = LDLC) DISEASEPu blished by [place]an Heart AssociationAnal yte Optim al Boderline Increased RiskC HOL <200 200-239 >240TRI G <150 150-199 >200HDL Male: >60 <40HDL Female: >60 <50 LDL < 100 130-15 9 >160 LDL NEAR OPTIMAL IS 100- 129 VLDL (test code = 25 mg/dL 5-40 N VLDL) LDL/HDL (test code = 3 LDLPHDL) Basic Metabolic [id number] 05:47:00 Test Item Value Reference Range Interpretation [...] the National Kidney Foundation,http ://nkd ep.nih.gov Magnesium, [id number] 05:47:00 Test Item Value Reference Range Interpretation Comments Magnesium (test code = MG) 2.3 mg/dL 1.7-2.5 N CBC with [id number] 05:36:00 Test Item Value Reference Range Interpretation [...] code = ALYMPH) 2.2 K/cumm 0.5-4.6 N Camp Abs (test code = AMONO) 0.3 K/cumm 0.0-1.2 N Eos Abs (test code = AEOS) 0.24 K/cumm 0.00-0.74 N Baso Abs (test code = ABASO) 0.0 K/cumm 0.00-0.21 N Partial Thromboplastin [id number] 21:26:00 Test Item Value Reference Range Interpretation Comments aPTT (test code = PTT) 29.00 seconds 24.39-37.25 N Prothrombin [id number] 21:26:00 Test Item Value Reference Range Interpretation Comments PT (test code = PT) 10.70 seconds 9.78-13.35 N INR (test code = INR) 0.95 Ratio 0.6-1.2 N Comprehensive Metabolic [id number] 21:23:00 Test Item Value Reference Range Interpretation [...] ars ofage have not been validated by fran faustin MDRD study and horace aponte be interpretedwith caution.eGFR Re sult Interpretation: eGFR > or = 60 is in t he Normal RangeeGF R < 60 may mean kidney diseaseeGFR < 1 5 may mean kidney failureRange s recommended by the National Kidney Foundation,http ://nkd ep.nih.gov CBC with [id number] 21:16:00 Test Item Value Reference Range Interpretation [...] code = ALYMPH) 2.2 K/cumm 0.5-4.6 N Camp Abs (test code = AMONO) 0.4 K/cumm 0.0-1.2 N Eos Abs (test code = AEOS) 0.17 K/cumm 0.00-0.74 N Baso Abs (test code = ABASO) 0.1 K/cumm 0.00-0.21 N
--- OUTSIDE RECORDS SUMMARY | 2020-05-08 21:12 | XMS REPORT | Summary of Care ---
:1980 Author Organization [facility] [employer] Address [address] [place] [address] Care Team Providers Name Role Phone Joshua Reyes Insurance Hmo Lila Reyes Primary Care Provider Reason for Visit Reason Comments NURSE VISIT [facility] device check q 6 mon ths Encounter Details Date Type Department Care Team Description 03/20/2020 Nurse Visit [facility] Navi Hines MD [address] [place] [address] Encounter for Cardiology- [place] Visit, [facility] Nurse interrogation of [address] [place] [address] (Primary Dx) [place] [address] Allergies Active Allergy Reactions Severity [...] as of this encounter (statuses as of 03/20/2020) Medications Medication Sig Dispensed Refills Start Date [...] as of this encounter (statuses as of 03/20/2020) Active Problems Problem Noted Date Syncope 10/29/2019 [...] Added automatically from request for yara arslan [id number] Abdominal pain, unspecified abdominal location 018 Overview: Added automatically from request for yara arslan [id number] Nausea and vomiting, intractability of vomiting not sp ecified, unspecified 07/13/2018 vomiting type Overview: Added automatically from request for yara arslan [id number] Chest pain 04/27/2018 Essential hypertension 04/27/2018 Pacemaker 04/27/2018 PAF (paroxysmal atrial fibrillation) 04/27/2018 History of cardiac pacemaker in situ 08/23/2017 Tachycardia, unspecified 06/22/2017 Elevated liver enzymes 07/23/2014 Pseudoseizure 04/15/2014 Left sided numbness 03/22/2014 Prediabetes 09/24/2013 Loss of weight 09/24/2013 Hypothyroidism 09/24/2013 Overview: ICD10 Diagnosis Term 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 documented as of this encounter Last Filed Vital Signs Not on filedocumented in this encounter Progress Notes Jo Ruiz RN - 03/20/2020 1:30 PM CDTPatient here for pacemaker check. [facility] merchandiser retail representative at bedside and performed download. Reportgiven to MD for review/interpretation. Patient scheduled for f/u as recommended. Current rhythm: -VS 93 bpm Underlying rhythm: -VS 93 bpm Estimated battery longevity: 9.2-11 years Atrial episodes: 2 AMS, both appear to be SVT Ventricular episodes: 5HVR all appear to be SVT Programming changes made: PMT occurred, RRPVARP turned off to prevent PMT. PAV/ALVAREZ @ 200/170 ms. VIP on at 150 ms, PVARP at 300 ms. Otherwise normal device function. documented in this encounter Plan of Treatment Date Type Specialty Care Team Description 04/10/2020 Office Visit Cardiology Navi Hines MD [address] [place] [phone] 09/11/2020 Nurse Visit Cardiology Visit, [facility] Nurse Health Maintenance Due Date Last Done Comments VARICELLA VACCINES (1 of 2 - 2-dose childhood series) 1982 DTaP,Tdap,and Td Vaccines (1 - Tdap) 1992 PAP SMEAR 06/21/2007 06/21/2004 INFLUENZA VACCINE (Season Ended) 2020 11/16/2015 Depression Screening 12/09/2020 12/10/2019 PNEUMOCOCCAL 0-64 YEARS COMBINED SERIES Completed 06/23/20 17 documented as of this encounter Implants Implanted Type Area General Ii Farmworker Device Identifier Shelf Exp iration Model / Serial Date / Lot Pacemaker documented as of this encounter Results Not on filedocumented in this encounter Visit Diagnoses Diagnosis Encounter for interrogation of cardiac p acemaker - Primary Fitting and adjustment of cardiac pacema ker documented in this encounter Insurance Payer Benefit Plan / Subscriber ID Effective Phone Address T e Group Dates SOLORIOJAMSHID SOLORIO xxxxxxxxx 2011-[address] Medic [place] [id number] [place] MED[place], [place] documented as of this encounter
--- OUTSIDE RECORDS SUMMARY | 2020-05-08 21:13 | XMS REPORT | Summary of Care ---
:1980 Author Organization [facility] [address] [place] [address] Care Team Providers Name Role Phone Joshua Reyes Insurance Hmo Lila Reyes Primary Care Provider Reason for Visit Reason Comments NURSE VISIT [facility] device check q 6 mon ths Encounter Details Date Type Department Care Team Description 03/20/2020 Nurse Visit [facility] Navi Hines MD [address] [address] Encounter for interrogation of cardiac p acemaker (Primary Dx); Cardiology- [place] Visit, Adc Nurse Inappropriate [facility] tachy[facility]; [facility], [address] [place] [address] Allergies Active Allergy Reactions Severity [...] Added automatically from request for yara arslan [id number] Abdominal pain, unspecified abdominal location 018 Overview: Added automatically from request for yara arslan [id number] Nausea and vomiting, intractability of vomiting not sp ecified, unspecified 07/13/2018 vomiting type Overview: Added automatically from request for yara arslan [id number] Chest pain 04/27/2018 Essential hypertension 04/27/2018 Pacemaker 04/27/2018 PAF (paroxysmal atrial fibrillation) 04/27/2018 History of cardiac pacemaker in situ 08/23/2017 Tachycardia, unspecified 06/22/2017 Elevated liver enzymes 07/23/2014 Pseudoseizure 04/15/2014 Left sided numbness 03/22/2014 Prediabetes 09/24/2013 Loss of weight 09/24/2013 Hypothyroidism 09/24/2013 Overview: ICD10 Diagnosis Term Service And Repair Supervisor Utility Hypoglycemia 08/21/2013 Overview: ICD10 Diagnosis Term Service And Repair Supervisor Utility documented as of this encounter (statuses [...] on filedocumented in this encounter Progress Notes Navi Hines MD - 03/20/2020 1:30 PM CDTEP Cardiac Device Check Evaluation performed: Interrogation and programing dual lead PPM Device: [facility] Mode: DDD 60-125 bpm Battery: 9.2-11 yrs Atrial Lead: Sensing: > 5 mV Impedance: 540 Ohms Threshold: 1.0 V @ 0.4 ms AP burden < 1 % Right Ventricular Lead: Sensin.4 mV Impedance: 440 Ohms Threshold: 1.0 V @ 0.4 ms LAND CONSERVATION SPECIALIST burden < 1 % Arrhythmias: Atrial episodes: 2 AMS, both appear to be SVT Ventricular episodes: 5HVR all appear to be SVT Programming changes made: PMT occurred, RRPVARP turned off to prevent PMT. PAV/ALVAREZ @ 200/170 ms. VIP on at 150 ms, PVARP at 300 ms. Recommendations: Normal functioning device and leads. Follow up in 6 months. Kevin Hines MD Application Engineer, Division of Cardiology [facility] Jo Ruiz RN - 03/20/2020 1:30 PM CDTPatient here for pacemaker check. [facility] student services representative at bedside and performed download. Reportgiven [...] Hines MD [address] [place] [address] [place] [phone] 09/11/2020 Nurse Visit Cardiology Visit, Adc Nurse Health Maintenance Due Date Last Done Comments VARICELLA VACCINES (1 of 2 - 2-dose childhood series) 1982 DTaP,Tdap,and Td Vaccines (1 - Tdap) 1992 PAP SMEAR 06/21/2007 06/21/2004 INFLUENZA VACCINE (Season Ended) 2020 11/16/2015 Depression Screening 12/09/2020 12/10/2019 PNEUMOCOCCAL 0-64 YEARS COMBINED SERIES Completed 06/23/20 17 documented as of this encounter Implants Implanted Type Area Guest Services Officer Device Identifier Shelf Exp iration Model / Serial Date / Lot Pacemaker documented as of this encounter Results Not on filedocumented in this encounter Visit Diagnoses Diagnosis Encounter for interrogation of cardiac p acemaker - Primary Fitting and adjustment of cardiac pacema ker Inappropriate sinus tachycardia Other specified cardiac dysrhythmias Sick sinus syndrome Sinoatrial node dysfunction documented in this encounter Insurance Payer Benefit Plan / Subscriber ID Effective Phone Address T e Group Dates LYNDSEY SOLORIO xxxxxxxxx 2011-[address] [address] [place] [phone] MANAGED MEDICAID [place] documented as of this encounter
--- OUTSIDE RECORDS SUMMARY | 2020-05-08 21:14 | XMS REPORT | Summary of Care ---
:1980 Author Organization [facility] Address [address] [place] [address] Care Team Providers Name Role Phone Joshua Reyes Insurance Hmo Yoni Mora MD Primary Care Provider Reason for Visit Reason Comments Follow-up 4 month Other (Routine) Status Reason Specialty Diagnoses / Procedures Referred By Lila ontact Referred To Contact Closed Cardiology Diagnoses Intercostal pain Lee Alexander MD Prasad, Sendil Procedures Discharge Follow-up: Specialty Provider EDMUNDO ROMEO; 4-[address] [place] [address] MD [place], [place] [address] [place] [address] [address] [address] Phone: [place] [address] Phone: Fax: Encounter Details Date Type Department Care Team Description 04/10/2020 Office Visit [facility] Edmundo Romeo Inappropriate sinus tachycardia (Primary Dx); Cardiology- Nydia Merida MD Sinus tachycardia; [address]; [address], [address] Essential hypertension; [place], [place] History of DVT (deep vein thrombosis); [id number] PAF (paroxysmal atrial fibrillation); [phone] Non-cardiac chest pain Allergies Active Allergy Reactions Severity Noted Date [...] as of this encounter (statuses as of 04/10/2020) Medications Medication Sig Dispensed Refills Start End [...] 1 Active tablet 7 venlafaxine XR 150 daily with 1 Active mg 24 hr capsule breakfast. 7 fluticasone-vilanter Inhale 1 Puff 0 Active ol (BREO ELLIPTA) daily. 100-25 mcg/dose DsDv tiotropium 18 mcg Inhale 18 mcg 0 Active inhalation daily. ALPRAZolam (XANAX) Take 0.25 mg 0 Active 0.25 mg by mouth at tabletIndications: bedtime as History of DVT (deep needed. vein thrombosis), Sick sinus syndrome, Tachycardia, Pain in pacemaker pocket blood sugar Use as 100 Strip 3 [...] Seizure cerebral mouth 2 (two) times daily. pregabalin (LYRICA) Take 25 mg by 0 Active 25 mg capsule mouth at bedtime. pantoprazole 40 mg Take 1 tablet 30 tablet 0 Active EC by mouth 0 tabletIndications: daily. Syncope, unspecified syncope type, Ventricular tachycardia, Intercostal pain, Essential hypertension venlafaxine 75 mg Take 75 mg by 0 Active tablet mouth at bedtime. apixaban (ELIQUIS) 5 Take 1 tablet 180 tablet 3 Active mg by mouth 2 0 tabletIndications: (two) times Recurrent DVT daily. Indications: Recurrent DVT carvediloL 25 mg Take 1 tablet 180 tablet 3 Active tabletIndications: by mouth 2 0 History of DVT (deep (two) times vein thrombosis) daily with meals. ivabradine Take 5 mg by 30 tablet 2 Active (CORLANOR) 5 mg mouth daily. 0 TabIndications: Inappropriate sinus tachycardia Levothyroxine 150 Take 150 mcg 0 04/10/20 Discontinued mcg capsule by mouth 20 daily. sucralfate Take 10 mL by 1200 mL 2 04/10/20 Disco ntinued (CARAFATE) 100 mg/mL mouth before 9 20 suspension meals and at bedtime. acetaminophen-codein Take 1 tablet 30 tablet 0 04/10 Discontinued e (TYLENOL-CODEINE by mouth 0 20 #3) 300-30 mg every 4 tabletIndications: (four) hours Chest pain, as needed for unspecified type Pain (scale 1-3). cyclobenzaprine 5 mg Take 1 tablet 12 tablet 0 04/10 Discontinued tabletIndications: by mouth 3 0 20 Cervicalgia, (three) times Radicular pain in daily as left arm needed for Muscle Spasms. Diclofenac Sodium Apply to 100 g 0 04/10/20 Di scontinued (VOLTAREN) 1 % area(s) 2 0 20 gelIndications: (two) times Chest pain, daily as unspecified type, needed for Cervicalgia, Pain (scale Radicular pain in 4-6). left arm apixaban (ELIQUIS) 5 Take 1 tablet 180 tablet 3 03/25 Discontinued mg by mouth 2 0 20 (Reorder) tabletIndications: (two) times PAF daily. Indications: PAF carvediloL 25 mg Take 1 tablet 180 tablet 3 04/10/20 Discontinued tabletIndications: by mouth 2 0 20 (Reorder) History of DVT (deep (two) times vein thrombosis), daily with Sick sinus syndrome meals. digoxin 125 mcg Take 125 mcg 0 04/10/20 D iscontinued (0.125 mg) tablet by mouth 20 daily. documented as of this encounter (statuses as of 04/10/2020) Active Problems Problem Noted Date Syncope 10/29/2019 [...] Added automatically from request for yara mcdaniels [id number] Abdominal pain, unspecified abdominal location 018 Overview: Added automatically from request for yara mcdaniels [id number] Nausea and vomiting, intractability of vomiting not sp ecified, unspecified 07/13/2018 vomiting type Overview: Added automatically from request for yara mcdaniels [id number] Non-cardiac chest pain 04/27/2018 Essential hypertension 04/27/2018 Pacemaker 04/27/2018 PAF (paroxysmal atrial fibrillation) 04/27/2018 History of cardiac pacemaker in situ 08/23/2017 Tachycardia, unspecified 06/22/2017 Elevated liver enzymes 07/23/2014 Pseudoseizure 04/15/2014 Left sided numbness 03/22/2014 Prediabetes 09/24/2013 Loss of weight 09/24/2013 Hypothyroidism 09/24/2013 Overview: ICD10 Diagnosis Term Puzzle Assembler Utility Hypoglycemia 08/21/2013 Overview: ICD10 Diagnosis Term Puzzle Assembler Utility documented as of this encounter (statuses as of 04/10/2020) Resolved Problems Problem Noted Date Resolved Date Metabolic syndrome X 07/23/2014 07/23/2014 documented as of this encounter (statuses as of 04/10/2020) Immunizations Name Administration Dates Next Due Pneumococcal [...] been in contact with No / Unsure 04/10/2020 10:15 AM CDT someone who was confirmed or suspected to have Coronavirus / COVID-19? documented as of this encounter Last Filed Vital Signs Vital Sign Reading Time Taken Comments Blood Pressure 107/78 04/10/2020 10:17 AM CDT Pulse 95 04/10/2020 10:17 AM CDT Temperature - - Respiratory Rate - - Oxygen Saturation 96% 04/10/2020 10:17 AM CDT Inhaled Oxygen Concentration - - Weight 56.2 kg (124 lb) 04/10/2020 10:17 AM CDT Height 149.9 cm (4' 11") 04/10/2020 10:17 AM CDT Body Mass Index 25.04 04/10/2020 10:17 AM CDT documented in this encounter Progress Notes Edmundo Romeo MD - 04/10/2020 10:00 AM CDT [facility] Cardiology Consult Note Patient: Jenni Draper Date of : 1980 Primary Care Physician: Diya Mora CHIEF COMPLAINT: Chief Complaint Patient presents with Follow-up 4 month History of Present Illness: Jenni Draper is a 39 year old female presented to the office to follow up care for historyof PAF/palpitations syndrome/atypical chest pain. History obtained talking to patient herself. Since the last OV, she had EP study 01/2020 which was negative, recent ER visit for atypical chest pain 02/2020. Feeling well on the whole. No new cardiac complaints noted. AN NYHA Class II stable. Continues to have palpitations that happens at random with no specific aggravating or relieving factors. No PND or orthopnea. No pedal edema. No syncopal attacks. Admitted for 10/2019 was admitted to [facility] for syncope, cp, sob, palpitations. She was given IV digoxin for abnormal heart rhythm labelled as "VT" and developed digoxin toxicity. Transferred to [facility]. Coreg/dig was DC. Toprol XL was started. She was having symptoms of palpitations, sorestarted coreg. She reports Dr Sharp recently, and then being planned for EP study/ablation. She had tried Ivabradine and Cardizem, but could tolerate it. Her past medical history from the cardiac [...] and the entire system was removed in [facility]. She had IV antibiotics with [...] shows sinus tachycardia with nonspecific ST-T changes ECG 02/2020 Sinus tachycardia When compared with ECG of 20-FEB-2020 13:17, Nonspecific T wave abnormality now evident in Anterior leads Echo 10/2019 Interpretation Summary A complete two-dimensional transthoracic echocardiogram was performed (2D, M- mode, Doppler and colorflow Doppler). Compared to prior study, there is no significant change. The study was technically adequate. Preserved LV systolic function. No hemodynamically significant valve diease. Left ventricular systolic function is normal. The left ventricular wall motion is normal. Ejection Fraction = 55-60%. Right ventricular systolic pressure is normal. Estimated RA pressure is 0-5 mmHg. EP Study 01/2020 Impression: No sustained SVT. No VT/VF. No evidence of accessory pathways. CT Cardiac 01/2019 IMPRESSION 1. Total coronary calcium score = 0 is at the 0th percentile for age and gender. 2. Normal origin of the coronary arteries which are free of significant disease or stenosis. CAD-RADS 0. 3. Normal cardiac chamber size. 4. Unremarkable aortic valve and aortic root. 5. Unremarkable pericardium. Echo 01/2018 Interpretation Summary A complete two-dimensional [...] 2017 was reviewed. Patient was referred to [facility] on September 05, 2017 for evaluation [...] INSERTION 10/2017 [facility]; Dr Imtiaz Soto, [facility], inserted twice Family History Problem Relation Age [...] Last attempt to quit: 05/09/2003 Years since quittin.9 Smokeless tobacco: Never Used Tobacco comment: quit [...] file Gets together: Not on file Attends samaritan service: Not on file Active member of [...] MEDICATIONS Patient's Medications START taking these medications IVABRADINE (CORLANOR) 5 MG TAB Take 5 mg by mouth daily. CONTINUE taking these medications which have NOT CHANGED ABILIFY 10 MG TABLET TK 1 T PO QHS ABILIFY 5 MG TABLET TK 1 T PO D, in am ALBUTEROL (ACCUNEB) 1.25 MG/3 ML NEBULIZER SOLUTION [...] MG TABLET TK 1 T PO BID DALIRESP 500 MCG TAB daily. FLUTICASONE-VILANTEROL (BREO ELLIPTA) 100-25 MCG/DOSE DSDV Inhale 1 Puff daily. LANCETS (TRUEPLUS LANCETS) 33 GAUGE MISC Use as directed. R 73.03, Check once daily LEVETIRACETAM 500 MG TABLET Take 2 tablets by mouth 2 (two) times daily. LORATADINE (CLARITIN) 10 MG TABLET as needed. PANTOPRAZOLE 40 MG EC TABLET Take 1 tablet by mouth daily. PREGABALIN (LYRICA) 25 MG CAPSULE Take 25 mg by mouth at bedtime. TIOTROPIUM 18 MCG INHALATION Inhale 18 mcg daily. TOPIRAMATE 100 MG TABLET TK 1 T PO HS VENLAFAXINE 75 MG TABLET Take 75 mg by mouth at bedtime. VENLAFAXINE XR 150 MG 24 HR CAPSULE daily with breakfast. START taking Modified Medications as Prescribed Modified Medication Previous Medication APIXABAN (ELIQUIS) 5 MG TABLET apixaban (ELIQUIS) 5 mg tablet Take 1 tablet by mouth 2 (two) times daily. Indications: Recurrent DVT Take 1 tablet by mouth2 (two) times daily. Indications: PAF CARVEDILOL 25 MG TABLET carvediloL 25 mg tablet Take 1 tablet by mouth 2 (two) times daily with meals. Take 1 tablet by mouth 2 (two) times daily with meals. STOP taking these medications ACETAMINOPHEN-CODEINE (TYLENOL-CODEINE #3) 300-30 MG TABLET Take 1 tablet by mouth every 4 (four) hours as needed for Pain (scale 1-3). CYCLOBENZAPRINE 5 MG TABLET Take 1 tablet by mouth 3 (three) times daily as needed for Muscle Spasms. DICLOFENAC SODIUM (VOLTAREN) 1 % GEL Apply to area(s) 2 (two) times daily as needed for Pain (scale 4-6). DIGOXIN 125 MCG (0.125 MG) TABLET Take 125 mcg by mouth daily. LEVOTHYROXINE 150 MCG CAPSULE Take 150 mcg by mouth daily. SUCRALFATE (CARAFATE) 100 MG/ML SUSPENSION Take 10 mL by mouth before meals and at bedtime. REVIEW OF SYSTEMS: Comprehensive 10-system review was conducted and were negative except for what's noted in the HPI. The following systems were reviewed: Constitutional, cardiovascular, respiratory, gastrointestinal, genitourinary, musculoskeletal, neurologic, psychiatric, endocrinological, and hematological. PHYSICAL EXAMINATION: Vitals: 04/10/20 1017 BP: 107/78 BP Location: Left arm Patient Position: Sitting BP CUFF SIZE: Adult Medium Pulse: 95 SpO2: 96% Weight: 56.2 kg (124 lb) Height: 1.499 m (4' 11") General: no apparent distress HEENT: normocephalic atraumatic [...] Value 03/24/2014 5.6 WBC (10*3/L) Date Value 03/24/2020 7.49 NA Date Value 03/24/2020 139 mmol/L 03/24/2014 136 MMOL/L SODIUM-Q (mmol/L) Date Value 07/23/2014 145 No results found for: PT PLT x10^3 (/uL) Date Value 03/24/2014 220 PLT (10*3/L) Date Value 03/24/2020 219 K Date Value 03/24/2020 4.0 mmol/L 03/24/2014 4.2 MMOL/L POTASSIUM-Q (mmol/L) Date Value 07/23/2014 4.9 PT INR (no units) Date Value 03/22/2014 1.0 INR (no units) Date Value 11/06/2019 1.0 HGB Date Value 03/24/2020 12.9 g/dL 03/24/2014 13.0 G/DL BUN Date Value 03/24/2020 12 mg/dL 03/24/2014 20 MG/DL UREA NITROGEN (BUN)-Q (mg/dL) Date Value 07/23/2014 12 HCT (%) Date Value 03/24/2020 39.4 03/24/2014 38.8 CREATININE Date Value 03/24/2020 0.61 mg/dL 03/24/2014 0.71 MG/DL CREATININE-Q (mg/dL) Date Value 07/23/2014 0.70 LIPID PROFILE GLUCOSE Date Value 03/24/2020 105 mg/dL 03/24/2014 114 MG/DL (H) GLUCOSE-Q [...] found for: CKMB AST(SGOT) (U/L) Date Value 03/24/2020 29 03/22/2014 59 (H) AST-Q (U/L) Date Value 07/23/2014 23 TROPONIN I (ng/mL) Date Value 03/25/2020 <0.012 ALT(SGPT) (U/L) Date Value 05/30/2019 26 03/22/2014 68 (H) ALT-Q (U/L) Date Value 07/23/2014 24 ALTv (U/L) Date Value 03/24/2020 30 No results found for: BNP LDL CHOL Date Value 06/15/2019 139 mg/dL 03/23/2014 104 MG/DL Recent Labs 03/25/20 0538 TROPNI <0.012 NT-proBNP (pg/mL) Date Value 03/24/2020 146 (H) LDL CHOL Date Value 06/15/2019 139 mg/dL 03/23/2014 104 MG/DL ASSESSMENT/PLAN 1. Inappropriate sinus tachycardia apixaban (ELIQUIS) 5 mg tablet ivabradine (CORLANOR) 5 mg Tab 2. Sinus tachycardia apixaban (ELIQUIS) 5 mg tablet 3. Palpitations apixaban (ELIQUIS) 5 mg tablet 4. Essential hypertension apixaban (ELIQUIS) 5 mg tablet 5. History of DVT (deep vein thrombosis) apixaban (ELIQUIS) 5 mg tablet carvediloL 25 mg tablet 6. PAF (paroxysmal atrial fibrillation) apixaban (ELIQUIS) 5 mg tablet 7. Non-cardiac chest pain Clinically stable from cardiac stand point. No new cardiac complaint noted. Atypical chest pain: Cardiac CTA 01/2019: Neg. Reassured that her chest pain is non-cardiac etiology. Recommend noncardiac work up for chest pain with her PCP. DC Ranexa since last OV 11/2019 . Sinus tachycardia/IST: EP study negative 01/2020 for any inducible arrhythmias. No sustained SVT. No VT/VF. No evidence of accessory pathways. Recommended to DC digoxin in view of admission in 11/2019. Will retry Ivabradine 5 mg daily first since last time when we tried Ivabradine 5 mg BiD (started having rash) and then we had tried Cardizem CD 120 (but had worsening AN hence stopped). Continue Coreg 25 mg BiD, DC Dig 125 mcg daily. History of PAF: but EP study negative 01/2020 for any inducible arrhythmias. No sustained SVT. No VT/VF. No evidence of accessory pathways. Recurrent DVT in the past per old records: On Eliquis. Currently following pharmacist intern in [facility]. Dyslipiedemia: on lipitor 10 mg daily HTN: on Coreg 25 mg BiD. Home BP log recommended. Cross check his BP machine. Appropriate ways to check home BP discussed. Goals BP < 130/80 stressed. Explained if BP > 130/80, adviced to send us the log. Lifestyle modifications stressed. Follow up in 6 months. Follow up with device clinic as planned. Recommended goal BP < 130/80 consistently, LDL << 100, HbA1c < 6.5. No orders of the defined types were placed in this encounter. Requested Prescriptions Signed Prescriptions Disp Refills apixaban (ELIQUIS) 5 mg tablet 180 tablet 3 Sig: Take 1 tablet by mouth 2 (two) times daily. Indications: Recurrent DVT carvediloL 25 mg tablet 180 tablet 3 Sig: Take 1 tablet by mouth 2 (two) times daily with meals. ivabradine (CORLANOR) 5 mg Tab 30 tablet 2 Sig: Take 5 mg by mouth daily. Patient's diease process and its evaluation and [...] in the answers given. We reviewed the [employer] recommendations for reduction of overall [...] feel free to call our office at [phone]. I would be happy to be of further assistance for Jenni Draper wellbeing. Kevin Romeo MD Navy Senior Officer, Division of Cardiology [facility] documented in this encounter Plan of Treatment Date Type Specialty Care Team Description 09/11/2020 Nurse Visit Cardiology Visit, Adc Nurse 10/02/2020 Office Visit Cardiology Edmundo Romeo MD [address] [facility] [place] [phone] Health Maintenance Due Date Last Done Comments VARICELLA VACCINES (1 of 2 - 2-dose childhood series) 1982 DTaP,Tdap,and Td Vaccines (1 - Tdap) 1992 PAP SMEAR 06/21/2007 06/21/2004 INFLUENZA VACCINE (#1) 2020 11/16/2015 Depression Screening 12/09/2020 12/10/2019 PNEUMOCOCCAL 0-64 YEARS COMBINED SERIES Completed 06/23/20 17 documented as of this encounter Implants Implanted Type Area Police Sergeant Device Identifier Shelf Exp iration Model / Serial Date / Lot Pacemaker documented as of this encounter Results Not on filedocumented in this encounter Visit Diagnoses Diagnosis Inappropriate sinus tachycardia - Primar y Other specified cardiac dysrhythmias Sinus tachycardia Other specified cardiac dysrhythmias Palpitations Essential hypertension Unspecified essential hypertension History of DVT (deep vein thrombosis) Personal history of venous thrombosis an d embolism PAF (paroxysmal atrial fibrillation) Atrial fibrillation Non-cardiac chest pain Other chest pain documented in this encounter Insurance Payer Benefit Plan / Subscriber ID Effective Phone Address T e Group Dates LYNDSEY SOLORIO xxxxxxxxx 2011-[address] [employer] [facility] [address] [place] MED[place] documented as of this encounter
--- OUTSIDE RECORDS SUMMARY | 2020-05-08 21:14 | XMS REPORT | Summary of Care ---
:1980 Author Organization [facility] Address [address] [place] [id number] Care Team Providers Name Role Phone Joshua Reyes Insurance Hmo Yoni Mora MD Primary Care Provider Reason for Visit Reason Comments Follow-up 4 month Other (Routine) Status Reason Specialty Diagnoses / Procedures Referred By Lila ontact Referred To Contact Closed Cardiology Diagnoses Intercostal pain Lee Alexander MD Prasad, Sendil Procedures Discharge Follow-up: Specialty Provider EDMUNDO ROMEO; 4-[address] [place] [address] MD [place], [place] [address] [place] [address] [address] [address] Phone: [place] [address] Phone: Fax: Encounter Details Date Type Department Care Team Description 04/10/2020 Office Visit [facility] Edmundo Romeo Inappropriate sinus tachycardia (Primary Dx); Cardiology- Nydia Merida MD Sinus tachycardia; [address]; [address], [address] Essential hypertension; [place], [place] History of DVT (deep vein thrombosis); [id number] PAF (paroxysmal atrial fibrillation); [phone] Non-cardiac chest pain Allergies Active Allergy Reactions [...] Added automatically from request for yara mcdaniels [id number] Abdominal pain, unspecified abdominal location 018 Overview: Added automatically from request for yara mcdaniels [id number] Nausea and vomiting, intractability of vomiting not sp ecified, unspecified 07/13/2018 vomiting type Overview: Added automatically from request for yara mcdaniels [id number] Non-cardiac chest pain 04/27/2018 Essential hypertension 04/27/2018 Pacemaker 04/27/2018 PAF (paroxysmal atrial fibrillation) 04/27/2018 History of cardiac pacemaker in situ 08/23/2017 Tachycardia, unspecified 06/22/2017 Elevated liver enzymes 07/23/2014 Pseudoseizure 04/15/2014 Left sided numbness 03/22/2014 Prediabetes 09/24/2013 Loss of weight 09/24/2013 Hypothyroidism 09/24/2013 Overview: ICD10 Diagnosis Term Data Entry Associate Utility Hypoglycemia 08/21/2013 Overview: ICD10 Diagnosis Term Data Entry Associate Utility documented as of this encounter (statuses [...] Romeo MD - 04/10/2020 10:00 AM CDT [facility] Cardiology Consult Note Patient: Jenni [...] the whole. No new cardiac complaints noted. NA NYHA Class II stable. Continues to have palpitations that happens at random with no specific aggravating or relieving factors. No PND or orthopnea. No pedal edema. No syncopal attacks. Admitted for 10/2019 was admitted to [facility] for syncope, cp, sob, palpitations. She was given IV digoxin for abnormal heart rhythm labelled as "VT" and developed digoxin toxicity. Transferred to [facility]. Coreg/dig was DC. Toprol XL was [...] and the entire system was removed in [facility]. She had IV antibiotics with IV [...] 2017 was reviewed. Patient was referred to [facility] on September 05, 2017 for evaluation [...] INSERTION 10/2017 [facility]; Dr Imtiaz Soto, [facility], inserted twice Family History Problem Relation Age [...] file Gets together: Not on file Attends sikh service: Not on file Active member of [...] per old records: On Eliquis. Currently following [employer] soa consultant in [facility]. Dyslipiedemia: on lipitor 10 mg [...] in the answers given. We reviewed the [place] [employer] recommendations for reduction of overall [...] feel free to call our office at [phone]. I would be happy to be of further assistance for Jenni Draper wellbeing. Kevin Romeo MD Plaster Pattern Caster, Division of Cardiology [facility] documented in this encounter Plan of Treatment Date Type Specialty Care Team Description 09/11/2020 Nurse Visit Cardiology Visit, Adc Nurse 10/02/2020 Office Visit Cardiology Edmundo Romeo MD [address] [facility] [place] [phone] Health Maintenance Due Date Last Done Comments VARICELLA VACCINES (1 of 2 - 2-dose childhood series) 1982 DTaP,Tdap,and Td Vaccines (1 - Tdap) 1992 PAP SMEAR 06/21/2007 06/21/2004 INFLUENZA VACCINE (#1) 2020 11/16/2015 Depression Screening 12/09/2020 12/10/2019 PNEUMOCOCCAL 0-64 YEARS COMBINED SERIES Completed 06/23/20 17 documented as of this encounter Implants Implanted Type Area Salmon Gillnet Vessel Operator Device Identifier Shelf Exp iration Model [...] [place] [address] [place] documented as of this encounter
--- OUTSIDE RECORDS SUMMARY | 2020-05-08 21:14 | XMS REPORT | Summary of Care ---
:1980 Author Organization [facility] - [facility] Address [address] [place] [address] Care Team Providers Name Role Phone Joshua Garibay Insurance Hmo Lila Garibay Primary Care Provider Reason for Referral Other (Routine) Status Reason Specialty Diagnoses / Referred By Referred To Procedures Contact Contact New Request Diagnoses Intercostal pain Lee Alexander MD Prasad, Sendil Procedures Discharge Follow-up: Specialty Provider EDMUNDO ROMEOHMariia; 4-6 Weeks [address] [facility] MD [place], [place] [address] [place] [address] [address] Phone: [place], [place] [phone] [address] Fax: (Routine) Status Reason Specialty Diagnoses / Referred By Referred To Procedures Contact Contact New Request Diagnoses Intercostal pain Lee Alexander MD Erickson, Richard Procedures Discharge Follow-up: PCP JOSHUA GARIBAY; 1 Week [address] [place], [place] [address] [facility] [address] [place] [address] Phone: Fax: Radiology Services (STAT) Status Reason Specialty Diagnoses / Referred By Referred To Procedures Contact Contact New Request Diagnostic Diagnoses Chest pain, unspecified type Radha Chauhan Radiology Procedures XR CHEST 1 VW COVID Chest 1 View J, DO [address] [place] [address] Reason for Visit Reason Comments Chest Pain Shortness of Breath Auth/Cert Status Reason Specialty Diagnoses / Referred By Referred To Procedures Contact Contact Emergency Medicine [facility] Em ergency Dept [address] [place] [address] Fax: Encounter Details Date Type Department Care Team Description 03/24/2020 - Emergency ADC Medicine Surgery Lila Horan, MANAGER SEARCH ENGINE [address] [place] [address] Chest pain 03/25/2020 Unit Chuy Armstrong MD [address] [place] [address] [place] [address] [id number] Allergies Active Allergy Reactions Severity Noted Date [...] as of this encounter (statuses as of 03/25/2020) Medications Medication Sig Dispensed Refills Start Date [...] 06/16/2017 Active tablet venlafaxine XR 150 mg daily with 1 06/16/2017 Active 24 hr capsule breakfast. fluticasone-vilanterol Inhale 1 Puff 0 Active (BREO [...] vein thrombosis), Sick meals. sinus syndrome digoxin 125 mcg (0.125 Take 125 mcg by 0 Active mg) tablet mouth daily. venlafaxine 75 mg Take 75 mg by 0 Active tablet mouth at bedtime. documented as of this encounter (statuses as of 03/25/2020) Active Problems Problem Noted Date Syncope 10/29/2019 [...] Added automatically from request for yara mcdaniels [id number] Abdominal pain, unspecified abdominal location 018 Overview: Added automatically from request for yara mcdaniels [id number] Nausea and vomiting, intractability of vomiting not sp ecified, unspecified 07/13/2018 vomiting type Overview: Added automatically from request for yara mcdaniels [id number] Chest pain 04/27/2018 Essential hypertension 04/27/2018 Pacemaker 04/27/2018 PAF (paroxysmal atrial fibrillation) 04/27/2018 History of cardiac pacemaker in situ 08/23/2017 Tachycardia, unspecified 06/22/2017 Elevated liver enzymes 07/23/2014 Pseudoseizure 04/15/2014 Left sided numbness 03/22/2014 Prediabetes 09/24/2013 Loss of weight 09/24/2013 Hypothyroidism 09/24/2013 Overview: ICD10 Diagnosis Term Rnp Utility Hypoglycemia 08/21/2013 Overview: ICD10 Diagnosis Term Rnp Utility documented as of this encounter (statuses as of 03/25/2020) Resolved Problems Problem Noted Date Resolved Date Metabolic syndrome X 07/23/2014 07/23/2014 documented as of this encounter (statuses as of 03/25/2020) Immunizations Name Administration Dates Next Due Pneumococcal Polysaccharide, PPSV23 (PNEUMOVAX) 06/23/2017 documented as of this encounter Social History Tobacco Use Types Packs/Day Years Used Date Former Smoker 0.3 2 Quit: 05/09/20 03 Smokeless Tobacco: Never Used Qu it: 08/20/2010 Tobacco Cessation: Counseling Given: No Comments: [...] been in contact with No / Unsure 03/24/2020 8:34 PM CDT someone who was confirmed or suspected to have Coronavirus / COVID-19? documented as of this encounter Last Filed Vital Signs Vital Sign Reading Time Taken Comments Blood Pressure 101/67 03/25/2020 7:21 AM CDT Pulse 83 03/25/2020 7:21 AM CDT Temperature 36 C (96.8 F) 03/25/2020 7:21 AM CDT Respiratory Rate 16 03/25/2020 7:21 AM CDT Oxygen Saturation 96% 03/25/2020 7:21 AM CDT Inhaled Oxygen Concentration - - Weight 57.4 kg (126 lb 7 oz) 03/25/2020 3:23 AM CDT Height 149.9 cm (4' 11") 03/24/2020 10:08 PM CDT Body Mass Index 25.54 03/24/2020 10:08 PM CDT documented in this encounter Discharge Instructions AttachmentsThe following attachments cannot be sent through Care Everywhere. Chest Pain, Noncardiac (Malawian)documented in this encounter Plan of Treatment Date Type Specialty Care Team Description 04/10/2020 Office Visit Cardiology Edmundo Romeo MD [address] [place] [phone] 09/11/2020 Nurse Visit Cardiology Visit, Adc Nurse Name Type Priority Associated Diagnoses Order S chedule TROPONIN I LAB Routine EVERY 6 HOURS ( START TIME ADJUSTABLE) START TIME ADJU STABLE for 2 Days starting 2019 until 03/26/2020, 2 completed Health Maintenance Due Date Last Done Comments VARICELLA VACCINES (1 of 2 - 2-dose childhood series) 1982 DTaP,Tdap,and Td Vaccines (1 - Tdap) 1992 PAP SMEAR 06/21/2007 06/21/2004 INFLUENZA VACCINE (#1) 2020 11/16/2015 Depression Screening 12/09/2020 12/10/2019 PNEUMOCOCCAL 0-64 YEARS COMBINED SERIES Completed 06/23/20 17 documented as of this encounter Implants Implanted Type Area Garment Cutter Device Identifier Shelf Exp iration Model / Serial Date / Lot Pacemaker documented as of this encounter Procedures Procedure Name Priority Date/Time Associated Diagnosis Comme nts TROPONIN I Routine 03/25/2020 5:38 Results for this AM CDT procedure are i n the results section. TROPONIN I Routine 03/25/2020 1:20 Results for this AM CDT procedure are i n the results section. XR CHEST 1 VW COVID STAT 03/24/2020 8:42 Chest pain, Resu lts for this PM CDT unspecified type procedure a re in the results section. COVID-19 (ID NOW STAT 03/24/2020 7:46 Chest pain, Results for this RAPID TESTING) PM CDT unspecified type procedure are in the results section. CBC WITH DIFFERENTIAL STAT 03/24/2020 7:46 Chest pain, Re sults for this PM CDT unspecified type procedure a re in the results section. N-TERMINAL PRO-BNP STAT 03/24/2020 7:46 Chest pain, Resul ts for this PM CDT unspecified type procedure a re in the results section. URINALYSIS STAT 03/24/2020 7:46 Chest pain, Results for this PM CDT unspecified type procedure a re in the results section. CBC WITH DIFFERENTIAL Routine 03/24/2020 7:46 Chest pain, Re sults for this PM CDT unspecified type procedure a re in the results section. DIGOXIN STAT 03/24/2020 7:46 Chest pain, Results for this PM CDT unspecified type procedure a re in the results section. BASIC METABOLIC PANEL STAT 03/24/2020 7:46 Chest pain, Re sults for this (NA, K, CL, CO2, PM CDT unspecified type procedu re are in GLUCOSE, BUN, the results CREATININE, CA) section. HEPATIC FUNCTION STAT 03/24/2020 7:46 Chest pain, Results for this PANEL (72614) PM CDT unspecified type procedure are in (ALB,T.PRO,BILI the results T,BU/BC,ALT,AST,ALK section. PHOS) TROPONIN I STAT 03/24/2020 7:46 Chest pain, Results for this PM CDT unspecified type procedure a re in the results section. EKG-12 LEAD STAT 03/24/2020 6:40 PM CDT documented in this encounter Results TROPONIN I (03/25/2020 5:38 AM CDT) Pathologist Sig nature TROPONIN I <0.012 <=0.034 ng/mL [facility] Specimen Blood - ARM, RIGHT Narrative Performed At Equal or Less than 0.034 ng/ml---Normal [facility] Note: Cardiac troponin begins to rise 3-4 hours after the onset of ischemia. Repeat in 4-6 hours if the sample was drawn within 3-4 hours of the onset of the symptom and found normal. Between 0.035 and 0.120 ng/mL--- Borderline. Questionable myocardial injury or necros is Note: Serial measurement may be necessary to [...] biotin. Performing Organization Address City/State/Zipcode Phone Number [facility] CLIA: [id number], [address] [place], [place] [address] TROPONIN I (03/25/2020 1:20 AM CDT) Pathologist Sig nature TROPONIN I 0.013 <=0.034 ng/mL [facility] Specimen Blood - ARM, RIGHT Narrative Performed At Equal or Less than 0.034 ng/ml---Normal [facility] Note: Cardiac troponin begins to rise 3-4 hours after the onset of ischemia. Repeat in 4-6 hours if the sample was drawn within 3-4 hours of the onset of the symptom and found normal. Between 0.035 and 0.120 ng/mL--- Borderline. Questionable myocardial injury or necros is Note: Serial measurement may be necessary to [...] biotin. Performing Organization Address City/State/Zipcode Phone Number [facility] CLIA: [id number], [address] [facility] [place] [address] XR CHEST 1 VW COVID (03/24/2020 8:42 PM CDT) Specimen Impressions Performed At PACS/VR/DOSE No acute intrathoracic abnormality, specifically no de tectable radiographic findings to suggest COVID-19 pneumonia. Disclaimer: Generally, the findings on c hest imaging in COVID-19 are not specific, and overlap with other infecti ons, including influenza, H1N1, SARS and MERS. According to the Centers for Disease Control (CDC) and recent statement of the [employer] [employer], viral testing remai ns the only specific method of diagnosis. Confirmation with the viral test is required, even if radiologic findings are suggestive of CO VID-[address]. Preliminary Report Dictated by Resident: Ruben Agudelo I, Hector Thorne MD., have reviewed this study and agree with the above report. Narrative Performed At PROCEDURE: CHEST, SINGLE VIEW PACS/VR/DOSE CLINICAL INDICATION: sob COMPARISON: Chest x-ray dated 11/06/2019. FINDINGS: Lungs: The lungs are clear. No pleural effusion or pneumothorax is seen. The heart is normal in size. Dual-chamber cardiac pacer is redemonstr ated. No acute bony abnormality. Procedure Note [facility], Radiant Results Inft User - 2019 12:34 AM CDT PROCEDURE: CHEST, SINGLE VIEW CLINICAL INDICATION: sob COMPARISON: Chest x-ray dated 11/06/2019. FINDINGS: Lungs: The lungs are clear. No pleural effusion or pneumothorax is s een. The heart is normal in size. Dual-chamber cardiac pacer is redemonstr ated. No acute bony abnormality. IMPRESSION No acute intrathoracic abnormality, spec ifically no detectable radiographic findings to suggest COVID-19 pneumonia. Disclaimer: Generally, the findings on c hest imaging in COVID-19 are not specific, and overlap with other infecti ons, including influenza, H1N1, SARS and MERS. According to the Centers for Disease Con trol (CDC) and recent statement of the [place] [employer], viral testing remains the only specific method of diagnosis. Confirmation with t he viral test is required, even if radiologic findings are suggestive of CO VID-[address]. Preliminary Report Dictated by Resident: Ruben Agudelo I, Hector Thorne MD., have reviewed is study and agree with the above report. Performing Organization Address [facility] Phone Number PACS/VR/DOSE DIGOXIN (03/24/2020 7:46 PM CDT) Pathologist Sig nature DIGOXIN <0.4 (L) 0.8 - 1.6 ng/mL [facility] Specimen Blood - VENOUS Narrative Performed At Arrythmias: 1.5 - 2.0 ng/m L [facility] Toxic Range: Greater than or equal to 2.4 ng/mL Performing Organization Address [facility] Phone Number [facility] CLIA: [id number], [address] [place], [place] [address] CBC WITH DIFFERENTIAL (03/24/2020 7:46 PM CDT) Pathologist Sig [facility] WBC 7.49 4.30 - 11.10 [facility] 10*3/L [facility] RBC 4.51 3.93 - 5.25 [facility] 10*6/L [facility] HGB 12.9 11.6 - 15.0 [facility] g/dL [facility] HCT 39.4 35.7 - 45.2 % [facility] MCV 87.4 80.6 - 95.5 fL [facility] MCH 28.6 25.9 - 32.8 pg [facility] MCHC 32.7 31.6 - 35.1 [facility] g/dL [facility] RDW-SD 41.1 39.0 - 49.9 fL [facility] RDW-CV 12.9 12.0 - 15.5 % [facility] PLT 219 166 - 358 [facility] 10*3/L [facility] MPV 10.1 9.5 - 12.9 fL [facility] NRBC/100 WBC 0.0 0.0 - 10.0 /100 [facility] WBCs [facility] NRBC x10^3 <0.01 10*3/L [facility] GRAN MAT (NEUT) % 59.5 % [facility] IMM GRAN % 1.30 % [facility] LYMPH % 29.6 % [facility] MONO % 6.5 % [facility] EOS % 2.7 % [facility] BASO % 0.4 % [facility] GRAN MAT x10^3(ANC) 4.45 1.88 - 7.09 [facility] 10*3/uL [facility] IMM GRAN x10^3 0.10 (H) 0.00 - 0.06 [facility] 10*3/uL HOSPITAL [facility] LYMPH x10^3 2.22 1.32 - 3.29 [facility] 10*3/uL [facility] MONO x10^3 0.49 0.33 - 0.92 [facility] 10*3/uL HOSPITAL LAB[facility]ORY EOS x10^3 0.20 0.03 - 0.39 [facility] 10*3/uL HOSPITAL [facility] BASO x10^3 0.03 0.01 - 0.07 [facility] 10*3/uL [facility] Specimen Blood - VENOUS Performing Organization Address City/State/Zipcode Phone Number [facility] CLIA: [id number], [address] [place], [place] [address] COVID-19 (ID NOW RAPID TESTING) (03/24/2020 7:46 PM CDT) SARS-CoV-2 Rapid ID Not Detected Not Detected [facility] Specimen Swab - NASOPHARYNGEAL SWAB Narrative Performed At ID NOW COVID-19 Assay is an isothermal nucleic [facility] acid amplification test intended for the qualitative detection of nucleic acid from SARS-CoV-2 viral RNA in nasopharyngeal (PRICING DIRECTOR) specimens. It is used under Emergency Use Authorization (EUA) by FDA. The limit of detection (LOD) of the assay is 125 Genome Equivalents/mL. A positive result is indicative of the presence of SARS-CoV-2 RNA. Clinical correlation with patient history and other diagnostic information is necessary to determine patient infection status. A negative (Not Detected) result does not preclude SARS-CoV-2 infection. In patients with clinical symptoms and other tests that are consistent with SARS-CoV-2 infection, negative results should be treated as presumptive negative and a new specimen should be tested with alternative PCR molecular test. Invalid: Please collect a new specimen for repeat patient testing if clinically indicated. Performing Organization Address [facility] Phone Number [facility] CLIA: [id number], [address] [place] [address] N-TERMINAL PRO-BNP (03/24/2020 7:46 PM CDT) Pathologist Sig nature NT-proBNP 146 (H) <=125 pg/mL [facility] Specimen Blood - VENOUS Narrative Performed At [facility] has been reported to cause a negative [facility] bias, interpret results relative to patient's use of biotin. Performing Organization Address [facility] Phone Number [facility] CLIA: [id number], [address] [place] [address] Troponin I (03/24/2020 7:46 PM CDT) Pathologist Sig nature TROPONIN I <0.012 <=0.034 ng/mL [facility] Specimen Blood - VENOUS Narrative Performed At Equal or Less than 0.034 ng/ml---Normal [facility] Note: Cardiac troponin begins to rise 3-4 hours after the onset of ischemia. Repeat in 4-6 hours if the sample was drawn within 3-4 hours of the onset of the symptom and found normal. Between 0.035 and 0.120 ng/mL--- Borderline. Questionable myocardial injury or necros is Note: Serial measurement may be necessary to [...] patient's use of biotin. Performing Organization Address [facility] Phone Number [facility] CLIA: [id number], [address] [place] [address] Hepatic Function Panel (ALB, T.PRO, BILI T, BU/BC, ALT, AST, ALK PHOS) (03/24/2020 7:46 PM CDT) Pathologist Sig nature TOTAL BILI 0.2 0.1 - 1.1 mg/dL [facility] BILI UNCON 0.4 0.1 - 1.1 mg/dL [facility] BILI CONJ 0.0 0.0 - 0.3 mg/dL [facility] T PROTEIN 7.8 6.3 - 8.2 g/dL [facility] ALBUMIN 4.3 3.5 - 5.0 g/dL [facility] ALK PHOS 108 34 - 122 U/L [facility] ALTv 30 5 - 35 U/L [facility] AST(SGOT) 29 13 - 40 U/L [facility] Specimen Blood - VENOUS Performing Organization Address City/State/Zipcode Phone Number [facility] CLIA: [id number], [address] [place] [address] Basic Metabolic Panel (NA, K, CL, CO2, GLUCOSE, BUN, CREATININE, CA) (03/24/2020 7:46 PM CDT) [facility] nature NA 139 135 - 145 mmol/L [facility] K 4.0 3.5 - 5.0 mmol/L [facility] CL 104 98 - 108 mmol/L [facility] CO2 TOTAL 27 23 - 31 mmol/L [facility] AGAP 8 2 - 16 [facility] BUN 12 7 - 23 mg/dL [facility] GLUCOSE 105 70 - 110 mg/dL [facility] CREATININE 0.61 0.50 - 1.04 [facility] mg/dL [facility] CALCIUM 9.5 8.6 - 10.6 mg/dL [facility] eGFR Calculation 109.8 mL/min/1.73m2 [facility] (Non-) [facility] Y eGFR Calculation 133.0 mL/min/1.73m2 [facility] ([facility] Specimen Blood - VENOUS Narrative Performed At [...] abnormalities in imaging tests). Performing Organization Address [facility] Phone Number [facility] CLIA: [id number], [address] [place], [place] [address] Urinalysis (03/24/2020 7:46 PM CDT) Pathologist Sig nature APPEARANCE Clear Clear [facility] COLOR Straw (A) Yellow [facility] PH 8.0 4.8 - 8.0 [facility] SP GRAVITY 1.009 1.003 - 1.030 [facility] GLU U QUAL Normal Normal [facility] BLOOD Negative Negative [facility] KETONES Negative Negative [facility] PROTEIN Negative Negative [facility] UROBILIN Normal Normal [facility] BILIRUBIN Negative Negative [facility] NITRITE Negative Negative [facility] LEUK NOLBERTO Negative Negative [facility] RBC/HPF 2 0 - 3 HPF [facility] WBC/HPF 1 0 - 5 HPF [facility] BACTERIA Few (A) Negative [facility] SQ EPITH <1 HPF [facility] ANTONIO EPITH <1 <=1 HPF [facility] Specimen Urine - URINE, CLEAN CATCH Performing Organization Address [facility]/State/Zipcode Phone Number [facility] CLIA: [id number], [address] [place], [place] [address] documented in this encounter Visit Diagnoses Diagnosis Chest pain, unspecified type - Primary Intercostal pain Other chest pain Prediabetes Other abnormal glucose Essential hypertension Unspecified essential hypertension Atrial fibrillation Hypothyroidism Unspecified hypothyroidism Pacemaker Cardiac pacemaker in situ documented in this encounter Administered Medications Medication Order MAR Action Action Date Dose Rate Site levETIRAcetam (KEPPRA) tablet Given 03/25/2020 8:08 AM CDT 1,00 0 mg 1,000 mg 1,000 mg, Oral, BID, First dose on Mon03/25/20 at 0800, Until Discontinued, Routine pantoprazole (PROTONIX) EC tablet 40 mg Given 03/25/2020 8:08 AM CDT 40 mg 40 mg, Oral, DAILY, First dose on Mon03/25/20 at 0900, Until Discontinued, Routine Medication Order MAR Action Action Date Dose Rate Site FENTanyl PF (SUBLIMAZE (PF)) Given 03/24/2020 7:53 PM CDT 50 mc g injection 50 mcg 50 mcg, Slow IV Push, ONCE, 1 dose, 03/24/20 at 2014, STAT NaCl 0.9% (NS) bolus infusion New Bag 03/24/2020 7:53 PM CDT 1,000 mL 999 mL/hr 1,000 mL at 999 mL/hr, 1,000 mL, IV Infusion, ONCE, 1 dose, 03/24/20 at 1915, GIGI proMETHazine (PHENERGAN) 25 mg in NaCl 0.9% Given 03/24/2020 8:15 PM CDT 25 mg (NS) 50 mL piggyback 25 mg, IV Piggyback, ONCE, 1 dose, 03/24/20 at 2014, 50 mL documented in this encounter Insurance Payer Benefit Plan / Subscriber ID Effective Phone Address T ype Group Dates LYNDSEY SOLORIO xxxxxxxxx 2011-K[address] [facility] [place] [id number] MANAGED MEDICAID [place], [place] documented as of this encounter
--- OUTSIDE RECORDS SUMMARY | 2020-05-08 21:15 | XMS REPORT | Summary of Care ---
:1980 Author Organization [facility] Address [address] [place] [id number] Care Team Providers Name Role Phone Joshua Reyes Insurance Hmo Yoni Mora MD Primary Care Provider Reason for Visit Reason Comments Assessment Encounter Details Date Type Department Care Team Description 04/14/2020 Telephone [facility] Cardiology- Navi Hines MD Assessment [place] [address], Suite [facility] [address] [place] [address] [place] [address] [phone] Allergies Active Allergy Reactions Severity Noted Date [...] Rash 01/04/2018 Iodine Rash 01/04/2018 Ivabradine Rash 06/25/201903/2020: report s passing out aft er taking one dose of that medicine Latex Rash 08/20/2013 "blisters" Morphine Anaphylaxis High 06/29/2017 Penicillin Anaphylaxis High 01/19/2016 Penicillins Anaphylaxis 08/20/2013 Quetiapine Fumarate Rash 04/20/2016 Sulfa (Sulfonamide Rash Low 08/20/2013 Antibiotics) Tramadol Unknown - See 06/22/2017 Rash comments documented as of this encounter (statuses as of 04/14/2020) Medications Medication Sig Dispensed Refills Start Date [...] Tachycardia, Pain in pacemaker pocket blood sugar diagnostic Use as directed. 100 [...] mouth 2 (two) Seizure cerebral times daily. pregabalin (LYRICA) 25 Take 25 mg by 0 Active mg capsule mouth at bedtime. pantoprazole 40 mg EC Take 1 tablet by 30 tablet 0 10/31/2019 Active tabletIndications: mouth daily. Syncope, unspecified syncope type, Ventricular tachycardia, Intercostal pain, Essential hypertension venlafaxine 75 mg Take 75 mg by 0 Active tablet mouth at bedtime. apixaban (ELIQUIS) 5 Take 1 tablet by 180 tablet 3 04/10/2020 Active mg tabletIndications: mouth 2 (two) Recurrent DVT times daily. Indications: Recurrent DVT carvediloL 25 mg Take 1 tablet by 180 tablet 3 04/10/2020 Active tabletIndications: mouth 2 (two) History of DVT (deep times daily with vein thrombosis) meals. ivabradine (CORLANOR) Take 5 mg by 30 tablet 2 04/10/2020 Active 5 mg TabIndications: mouth daily. Inappropriate sinus tachycardia digoxin 125 mcg (0.125 Take 1 tablet by 30 tablet 3 04/14/2020 Active mg) tabletIndications: mouth daily. History of DVT (deep vein thrombosis), Inappropriate sinus tachycardia documented as of this encounter (statuses as of 04/14/2020) Active Problems Problem Noted Date Syncope 10/29/2019 [...] Added automatically from request for yara mcdaniels [id number] Abdominal pain, unspecified abdominal location 10/19/2 018 Overview: Added automatically from request for yara arslan [id number] Nausea and vomiting, intractability of vomiting not sp ecified, unspecified 07/13/2018 vomiting type Overview: Added automatically from request for yara monzony [id number] Non-cardiac chest pain 04/27/2018 Essential hypertension 04/27/2018 Pacemaker 04/27/2018 PAF (paroxysmal atrial fibrillation) 04/27/2018 History of cardiac pacemaker in situ 08/23/2017 Tachycardia, unspecified 06/22/2017 Elevated liver enzymes 07/23/2014 Pseudoseizure 04/15/2014 Left sided numbness 03/22/2014 Prediabetes 09/24/2013 Loss of weight 09/24/2013 Hypothyroidism 09/24/2013 Overview: ICD10 Diagnosis 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 Utility Hypoglycemia 08/21/2013 Overview: ICD10 Diagnosis 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 Utility documented as of this encounter (statuses as of 04/14/2020) Resolved Problems Problem Noted Date Resolved Date Metabolic syndrome X 07/23/2014 07/23/2014 documented as of this encounter (statuses as of 04/14/2020) Immunizations Name Administration Dates Next Due Pneumococcal [...] Visit, Adc Nurse 10/02/2020 Office Visit Cardiology Navi Hines MD [address] [place] [address] [place] [phone] Name Type Priority Associated Diagnoses Order S chedule DIGOXIN, LEVEL LAB Routine History of DVT (deep vein Expected: 04/14/2020, thrombosis) Expires: 04/14/2021 Inappropriate sinus tachycardia Health Maintenance Due Date Last Done Comments VARICELLA VACCINES (1 of 2 - 2-dose childhood series) 1982 DTaP,Tdap,and Td Vaccines (1 - Tdap) 1992 PAP SMEAR 06/21/2007 06/21/2004 INFLUENZA VACCINE (#1) 2020 11/16/2015 Depression Screening 12/09/2020 12/10/2019 PNEUMOCOCCAL 0-64 YEARS COMBINED SERIES Completed 06/23/20 17 documented as of this encounter Implants Implanted Type Area Environmental Compliance Inspector Device Identifier Shelf Exp iration Model / Serial Date / Lot Pacemaker documented as of this encounter Results Not on filedocumented in this encounter Visit Diagnoses Diagnosis History of DVT (deep vein thrombosis) Personal history of venous thrombosis an d embolism Inappropriate sinus tachycardia Other specified cardiac dysrhythmias documented in this encounter Insurance Payer Benefit Plan / Subscriber ID Effective Phone Address T e Group Dates LYNDSEY SOLORIO xxxxxxxxx 2011-Kobe [place] [facility] [phone] MANAGED MEDICAID [place], [place] documented as of this encounter
--- OUTSIDE RECORDS SUMMARY | 2020-05-08 21:15 | XMS REPORT | Summary of Care ---
:1980 Author Organization [facility] - Health Address [address] [place] [address] Care Team Providers Name Role Phone Joshua Reyes Insurance Hmo Yoni Mora MD Primary Care Provider Encounter Details Date Type Department Care Team Description 04/14/2020 Orders Only [facility] Doctor Unassigned, No [address] [facility] [place] [address] [address] [place] [address] Allergies Active Allergy Reactions Severity Noted Date [...] as of this encounter (statuses as of 04/21/2020) Medications Medication Sig Dispensed Refills Start Date [...] as of this encounter (statuses as of 04/21/2020) Active Problems Problem Noted Date Syncope 10/29/2019 [...] Added automatically from request for yara arslan [id number] Abdominal pain, unspecified abdominal location 018 Overview: Added automatically from request for yara arslan [id number] Nausea and vomiting, intractability of vomiting not sp ecified, unspecified 07/13/2018 vomiting type Overview: Added automatically from request for yara arslan [id number] Non-cardiac chest pain 04/27/2018 Essential hypertension 04/27/2018 Pacemaker 04/27/2018 PAF (paroxysmal atrial fibrillation) 04/27/2018 History of cardiac pacemaker in situ 08/23/2017 Tachycardia, unspecified 06/22/2017 Elevated liver enzymes 07/23/2014 Pseudoseizure 04/15/2014 Left sided numbness 03/22/2014 Prediabetes 09/24/2013 Loss of weight 09/24/2013 Hypothyroidism 09/24/2013 Overview: ICD10 Diagnosis 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 Utility Hypoglycemia 08/21/2013 Overview: ICD10 Diagnosis 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 Utility documented as of this encounter (statuses as of 04/21/2020) Resolved Problems Problem Noted Date Resolved Date Metabolic syndrome X 07/23/2014 07/23/2014 documented as of this encounter (statuses as of 04/21/2020) Immunizations Name Administration Dates Next Due Pneumococcal [...] Hines MD [address] [place] [address] [place] [phone] Health Maintenance Due Date Last Done Comments VARICELLA VACCINES (1 of 2 - 2-dose childhood series) 1982 DTaP,Tdap,and Td Vaccines (1 - Tdap) 1992 PAP SMEAR 06/21/2007 06/21/2004 INFLUENZA VACCINE (#1) 2020 11/16/2015 Depression Screening 12/09/2020 12/10/2019 PNEUMOCOCCAL 0-64 YEARS COMBINED SERIES Completed 06/23/20 17 documented as of this encounter Implants Implanted Type Area Processing Archivist Device Identifier Shelf Exp iration Model / Serial Date / Lot Pacemaker documented as of this encounter Procedures Procedure Name Priority Date/Time Associated Diagnosis Comme nts PHYSICIAN ORDERS Routine 04/14/2020 12:01 AM CDT documented in this encounter Results Not on filedocumented in this encounter Insurance Payer Benefit Plan / Subscriber ID Effective Phone Address T e Group Dates LYNDSEY SOLORIO xxxxxxxxx 2011-Kobe Am[place] [address] [place] [facility] [place] [phone] MA[place]ED MEDICAID [place], [place] documented as of this encounter
--- OUTSIDE RECORDS SUMMARY | 2020-05-08 21:16 | XMS REPORT | Summary of Care ---
:1980 Author Organization [facility] Address [address] [place] [address] Care Team Providers Name Role Phone Joshua Reyes Insurance Hmo Yoni Mora MD Primary Care Provider Reason for Visit Reason Comments Notification Encounter Details Date Type Department Care Team Description 04/29/2020 Telephone [facility] Cardiology- Navi Hines MD Notification [place] [address] [place] [address] [address] [place] [address] [place] [address] [phone] Allergies Active Allergy Reactions Severity Noted Date [...] as of this encounter (statuses as of 05/01/2020) Medications Medication Sig Dispensed Refills Start Date [...] as of this encounter (statuses as of 05/01/2020) Active Problems Problem Noted Date Syncope 10/29/2019 [...] Added automatically from request for yara mcdaniels [id number] Abdominal pain, unspecified abdominal location 10/19/2 018 Overview: Added automatically from request for yara arslan [id number] Nausea and vomiting, intractability of vomiting not sp ecified, unspecified 07/13/2018 vomiting type Overview: Added automatically from request for yara arslan [id number] Non-cardiac chest pain 04/27/2018 Essential hypertension 04/27/2018 Pacemaker 04/27/2018 PAF (paroxysmal atrial fibrillation) 04/27/2018 History of cardiac pacemaker in situ 08/23/2017 Tachycardia, unspecified 06/22/2017 Elevated liver enzymes 07/23/2014 Pseudoseizure 04/15/2014 Left sided numbness 03/22/2014 Prediabetes 09/24/2013 Loss of weight 09/24/2013 Hypothyroidism 09/24/2013 Overview: ICD10 Diagnosis Term Certified Dietary Manager Utility Hypoglycemia 08/21/2013 Overview: ICD10 Diagnosis Term Certified Dietary Manager Utility documented as of this encounter (statuses as of 05/01/2020) Resolved Problems Problem Noted Date Resolved Date Metabolic syndrome X 07/23/2014 07/23/2014 documented as of this encounter (statuses as of 05/01/2020) Immunizations Name Administration Dates Next Due Pneumococcal [...] Assigned at Date Recorded Not on file COVID-19 Exposure Response Date Recorded In the last month, have you been in contact with No / Unsure 04/10/2020 10:15 AM CDT someone who was confirmed or suspected to have Coronavirus / COVID-19? documented as of this encounter Last Filed Vital Signs Not on filedocumented in this encounter Miscellaneous Notes Telephone Encounter - Mayi Chauhan, RN - 05/01/2020 10:12 AM CDTAdvised patient that once we receive the dig levels, we can better determine if repeated testing needs to occur. Explained that the MD will review the levels and notify us if we need to schedule futurelabs. elephone Encounter - Hector Clarke - 04/29/2020 10:24 AM CDTPt requesting a call to know how often to check Digoxin levels. Please advise. Currently active order for lab. documented in this encounter Plan of Treatment Date Type Specialty Care Team Description 09/11/2020 Nurse Visit Cardiology Visit, Adc Nurse 10/02/2020 Office Visit Cardiology Navi Hines MD [address] [place] [phone] Health Maintenance Due Date Last Done Comments VARICELLA VACCINES (1 of 2 - 2-dose childhood series) 1982 DTaP,Tdap,and Td Vaccines (1 - Tdap) 2000 PAP SMEAR 06/21/2007 06/21/2004 INFLUENZA VACCINE (#1) 2020 11/16/2015 Depression Screening 12/09/2020 12/10/2019 PNEUMOCOCCAL 0-64 YEARS COMBINED SERIES Completed 06/23/20 17 documented as of this encounter Implants Implanted Type Area Glove Parts Cutter Device Identifier Shelf Exp iration Model / Serial Date / Lot Pacemaker documented as of this encounter Results Not on filedocumented in this encounter Insurance Payer Benefit Plan / Subscriber ID Effective Phone Address T [facility] Group Dates SOLORIO SOLORIO [id number] 2011-Prese [address] Medic [facility] [place] [phone] MANAGED MEDICAID [place] documented as of this encounter
--- NOTE | 2020-05-08 22:29 | RAD REPORT ---
EXAM DESCRIPTION: RAD - Chest Single View - 05/08/2020 10:21 pm CLINICAL HISTORY: COUGH Chest pain. COMPARISON: Chest Single View dated 03/17/2020; Chest Single View dated 02/10/2020; Chest Single View dated 10/21/2019; Chest Pa And Lat (2 Views) dated 08/13/2019 FINDINGS: Portable technique limits examination quality. The lungs are grossly clear. The heart is normal in size. No displaced fractures. Dual lead pacer dev ice is present. IMPRESSION: No acute intrathoracic process suspected.
[2020-05-08] MEDS ORDERED: ACETAMINOPHEN 500 MG TAB ONE (22:35)
[2020-05-08] MEDS ORDERED: ONDANSETRON 4 MG (ODT) TAB ONE (22:36)
[2020-05-08 23:53] LABS: Absolute Lymphocytes (CBC) 1.2 K/uL (0.7-4.9); Basophils % 0.4 % (0-1.3); Hematocrit 38.3 % (36.0-45.0); Lymphocytes % 12.2 % (15.3-44.8); MPV 8.7 fL (7.6-11.3); RBC Red Blood Cell Count 4.49 M/uL (3.86-4.86)
--- NOTE | 2020-05-09 00:19 | EDPHYS ---
Physician Documentation [facility] Name: Jenni Draper Age: 39 yrs Sex: Female : 1980 Arrival Date: 05/08/2020 Time: 21:06 Bed 13 Private MD: ED Physician Sim Gusman HPI: 05/08 21:53 This 39 yrs old Female presents to ER via Ambulatory with complaints of Flu pkl Symptoms. 21:53 The patient or guardian reports cough, described as mild, with no sputum, difficulty pkl breathing, flu symptoms, low-grade fever, myalgias. Onset: The symptoms/episode began/occurred 5 day(s) ago. Historical: - Allergies: 21:28 Adhesives; jd3 21:28 Aspirin; jd3 21:28 Bactrim; jd3 21:28 Benadryl; jd3 21:28 Cipro IV; jd3 21:28 Clindamycin; jd3 21:28 coconut oil; jd3 21:28 Demerol; jd3 21:28 Detrol; jd3 21:28 Diltiazem; jd3 21:28 FISH PRODUCT DERIVATIVES; jd3 21:28 GABAPENTIN; jd3 21:28 Iodine; jd3 21:28 Latex, Natural Rubber; jd3 21:28 Morphine; jd3 21:28 PENICILLINS; jd3 21:28 Seroquel; jd3 21:28 Sulfa (Sulfonamide Antibiotics); jd3 21:28 Suprax; jd3 21:28 tramadol; jd3 - Home Meds: 21:28 Abilify 10 mg Oral tab 1 tab once daily [Active]; albuterol sulfate 1.25 mg/3 mL Inhl jd3 nebu 3 mL 3 times per day [Active]; albuterol sulfate 1.25 mg/3 mL Inhl nebu 3 mL 3 times per day [Active]; alprazolam 0.25 mg Oral tab 1 tab nightly [Active]; atorvastatin 10 mg Oral tab 1 tab once daily [Active]; benztropine 1 mg Oral tab 1 tab 2 times per day [Active]; buspirone 15 mg Oral tab 1 tab 2 times per day [Active]; Coreg 25 mg Oral tab 1 tab 2 times per day [Active]; Daliresp 500 mcg Oral tab 1 tab once daily [Active]; Effexor XR 150 mg Oral cp24 1 cap once daily [Active]; Eliquis 5 mg Oral tab once a day [Active]; esomeprazole magnesium 40 mg Oral cpDR 1 cap once daily [Active]; Keppra 1,000 mg Oral tab 1 tab every 12 hours [Active]; loratadine 10 mg Oral tab 1 tab once daily [Active]; pregabalin 25 mg Oral 1 cap daily [Active]; ProAir HFA 90 mcg/actuation inhalation HFAA 2 puffs every 6 hours [Active]; Spiriva with HandiHaler 18 mcg inhalation CpDv 1 cap once daily [Active]; venlafaxine 150 mg Oral cp24 1 cap once daily [Active]; Topamax 100 mg Oral tab 2 tabs 2 times per day [Active]; digoxin 125 mcg Oral tab [Active]; - PSHx: 21:31 Hysterectomy; jd3 - Immunization history:: Adult Immunizations up to date. - Social history:: Smoking status: Patient denies any tobacco usage or history of. ROS: 21:53 Eyes: Negative for injury, pain, redness, and discharge, ENT: Negative for injury, pkl pain, and discharge, Neck: Negative for injury, pain, and swelling, Cardiovascular: Negative for chest pain, palpitations, and edema. 21:53 Respiratory: Positive for cough, with no reported sputum. 21:53 Abdomen/GI: Negative for abdominal pain, nausea, vomiting, and diarrhea. 21:53 Back: Negative for acute changes. 21:53 : Negative for urinary symptoms. 21:53 MS/extremity: Negative for acute changes. 21:53 Skin: Negative for rash. 21:53 Neuro: Positive for headache. Exam: 21:53 Head/Face: Normocephalic, atraumatic. Eyes: Pupils equal round and reactive to light, pkl extra-ocular motions intact. Lids and lashes normal. Conjunctiva and sclera are non-icteric and not injected. Cornea within normal limits. Periorbital areas with no swelling, redness, or edema. ENT: Nares patent. No nasal discharge, no septal abnormalities noted. Tympanic membranes are normal and external auditory canals are clear. Oropharynx with no redness, swelling, or masses, exudates, or evidence of obstruction, uvula midline. Mucous membranes moist. Neck: Trachea midline, no thyromegaly or masses palpated, and no cervical lymphadenopathy. Supple, full range of motion without nuchal rigidity, or vertebral point tenderness. No Meningismus. Chest/axilla: Normal chest wall appearance and motion. Nontender with no deformity. No lesions are appreciated. Cardiovascular: Regular rate and rhythm with a normal S1 and S2. No gallops, murmurs, or rubs. Normal PMI, no JVD. No pulse deficits. Respiratory: Lungs have equal breath sounds bilaterally, clear to auscultation and percussion. No rales, rhonchi or wheezes noted. No increased work of breathing, no retractions or nasal flaring. Abdomen/GI: Soft, non-tender, with normal bowel sounds. No distension or tympany. No guarding or rebound. No evidence of tenderness throughout. Back: No spinal tenderness. No costovertebral tenderness. Full range of motion. Skin: Warm, dry with normal turgor. Normal color with no rashes, no lesions, and no evidence of cellulitis. MS/ Extremity: Pulses equal, no cyanosis. Neurovascular intact. Full, normal range of motion. Neuro: Awake and alert, GCS 15, oriented to person, place, time, and situation. Cranial nerves II-XII grossly intact. Motor strength 5/5 in all extremities. Sensory grossly intact. Cerebellar exam normal. Normal gait. Vital Signs: 21:21 BP 126 / 74; Pulse 92; Resp 17 S; Temp 99.6(O); Pulse Ox 97% on R/A; Weight 57.61 kg jd3 (R); Height 4 ft. 11 in. (149.86 cm) (R); Pain 10/10; 22:30 BP 125 / 80; Pulse 89; Resp 18; Pulse Ox 98% on R/A; aj1 23:30 BP 121 / 76; Pulse 86; Resp 17; Pulse Ox 98% on R/A; rv 05/09 00:30 BP 118 / 81; Pulse 81; Resp 17; Temp 98.7(O); Pulse Ox 98% ; rv 05/08 21:21 Body Mass Index 25.65 (57.61 kg, 149.86 cm) jd3 MDM: 05/08 21:28 Patient medically screened. pkl 05/09 00:15 Data reviewed: vital signs, nurses notes, lab test result(s), radiologic studies, plain pkl films. ED course: Discussed lab. and X' rays results with patient. Advised to stay home until Covid 19 results available. Follow up with PCP in 2 to 3 days. Patient under stood instructions. 05/08 21:41 Order name: COVID-19 pkl 05/08 21:41 Order name: Flu; Complete Time: 00:20 pkl 05/08 21:41 Order name: Strep; Complete Time: 00:20 pkl 05/08 21:41 Order name: XRAY CXR (1 view); Complete Time: 22:43 pkl 05/08 22:32 Order name: CBC with Diff; Complete Time: 00:20 lp1 05/09 00:12 Order name: Throat Culture EDDE 05/08 21:41 Order name: Document PUI#; Complete Time: 22:23 pkl 05/08 21:41 Order name: Droplet/Contact Precautions; Complete Time: 22:23 pkl 05/08 21:41 Order name: Labs collected and sent; Complete Time: 22:23 pkl 05/08 21:41 Order name: Notify Health Dept [phone]/ ; Complete Time: 22:23 pkl 05/08 21:41 Order name: O2 Per Protocol; Complete Time: 22:23 pkl Administered Medications: 05/08 23:00 Drug: Tylenol 500 mg Route: PO; [facility] 05/09 00:33 Follow up: Response: No adverse reaction; Marked relief of symptoms rv 05/08 23:00 Drug: Zofran (Ondansetron) 4 mg Route: PO; [facility] 05/09 00:33 Follow up: Response: No adverse reaction; Marked relief of symptoms rv Disposition: 05/09/20 00:19 Discharged to Home. Impression: Upper respiratory infection. - Condition is Stable. - Discharge Instructions: Form - Return To Work. - Prescriptions for Zofran 4 mg Oral Tablet - take 1 tablet by ORAL route every 12 hours As needed; 6 tablet. - Medication Reconciliation Form, Thank You Letter, Antibiotic Education, Prescription Opioid Use, Work release form form. - Follow up: Private Physician; When: 2 - 3 days; Reason: Re-evaluation by your physician. - Problem is new. - Symptoms have improved. Signatures: Dispatcher [employer] Tania Ryan RN RN aj1 Sim Gusman MD MD pkl Fritz Cho, RN RN jd3 Franky Horn RN RN rv Corrections: (The following items were deleted from the chart) 00:34 00:19 05/09/2020 00:19 Discharged to Home. Impression: Upper respiratory infection. rv Condition is Stable. Forms are Medication Reconciliation Form, Thank You Letter, Antibiotic Education, Prescription Opioid Use. Follow up: Private Physician; When: 2 - 3 days; Reason: Re-evaluation by your physician. Problem is new. Symptoms have improved. pkl
--- NOTE | 2020-05-09 00:19 | ER ---
Nurse's Notes [facility] Name: Jenni Draper Age: 39 yrs Sex: Female : 1980 Arrival Date: 05/08/2020 Time: 21:06 Bed 13 Private MD: Diagnosis: Upper respiratory infection Presentation: 05/08 21:18 Chief complaint: Patient states: "I have been feeling bad since Monday. I have been jd3 having body aches, chest pains, shortness of breath, nausea/vomiting, and headaches that just won't go away. my doctor recently told me I had bronchitis and come to the ER if it got worse.". Coronavirus screen: Ebola Screen: Patient negative for fever greater than or equal to 101.5 degrees Fahrenheit, and additional compatible Ebola Virus Disease symptoms. Initial Sepsis Screen: Does the patient meet any 2 criteria? No. Patient's initial sepsis screen is negative. Does the patient have a suspected source of infection? No. Patient's initial sepsis screen is negative. Risk Assessment: Do you want to hurt yourself or someone else? Patient reports no desire to harm self or others. Onset of symptoms was May 04, 2020. 21:18 Method Of Arrival: Ambulatory jd3 21:18 Acuity: LYUBOV 3 jd3 Historical: - Allergies: 21:28 Adhesives; jd3 21:28 Aspirin; jd3 21:28 Bactrim; jd3 21:28 Benadryl; jd3 21:28 Cipro IV; jd3 21:28 Clindamycin; jd3 21:28 coconut oil; jd3 21:28 Demerol; jd3 21:28 Detrol; jd3 21:28 Diltiazem; jd3 21:28 FISH PRODUCT DERIVATIVES; jd3 21:28 GABAPENTIN; jd3 21:28 Iodine; jd3 21:28 Latex, Natural Rubber; jd3 21:28 Morphine; jd3 21:28 PENICILLINS; jd3 21:28 Seroquel; jd3 21:28 Sulfa (Sulfonamide Antibiotics); jd3 21:28 Suprax; jd3 21:28 tramadol; jd3 - Home Meds: 21:28 Abilify 10 mg Oral tab 1 tab once daily [Active]; albuterol sulfate 1.25 mg/3 mL Inhl jd3 nebu 3 mL 3 times per day [Active]; albuterol sulfate 1.25 mg/3 mL Inhl nebu 3 mL 3 times per day [Active]; alprazolam 0.25 mg Oral tab 1 tab nightly [Active]; atorvastatin 10 mg Oral tab 1 tab once daily [Active]; benztropine 1 mg Oral tab 1 tab 2 times per day [Active]; buspirone 15 mg Oral tab 1 tab 2 times per day [Active]; Coreg 25 mg Oral tab 1 tab 2 times per day [Active]; Daliresp 500 mcg Oral tab 1 tab once daily [Active]; Effexor XR 150 mg Oral cp24 1 cap once daily [Active]; Eliquis 5 mg Oral tab once a day [Active]; esomeprazole magnesium 40 mg Oral cpDR 1 cap once daily [Active]; Keppra 1,000 mg Oral tab 1 tab every 12 hours [Active]; loratadine 10 mg Oral tab 1 tab once daily [Active]; pregabalin 25 mg Oral 1 cap daily [Active]; ProAir HFA 90 mcg/actuation inhalation HFAA 2 puffs every 6 hours [Active]; Spiriva with HandiHaler 18 mcg inhalation CpDv 1 cap once daily [Active]; venlafaxine 150 mg Oral cp24 1 cap once daily [Active]; Topamax 100 mg Oral tab 2 tabs 2 times per day [Active]; digoxin 125 mcg Oral tab [Active]; - PSHx: 21:31 Hysterectomy; jd3 - Immunization history:: Adult Immunizations up to date. - Social history:: Smoking status: Patient denies any tobacco usage or history of. Screenin:22 Abuse screen: Denies threats or abuse. Denies injuries from another. Nutritional aj1 screening: No deficits noted. Tuberculosis screening: No symptoms or risk factors identified. 05/09 00:34 Fall Risk None identified. rv Assessment: 05/08 22:22 General: Appears in no apparent distress. comfortable, Behavior is calm, cooperative, aj1 appropriate for age. Pain: Complains of pain in generalized body aches Pain does not radiate. Pain currently is 8 out of 10 on a pain scale. Neuro: Level of Consciousness is awake, alert, obeys commands, Oriented to person, place, time, situation. Cardiovascular: Heart tones S1 S2 present Patient's skin is warm and dry. Respiratory: Reports shortness of breath cough that is non-productive, persistent Airway is patent Respiratory effort is even, unlabored, Respiratory pattern is regular, symmetrical, Breath sounds are clear bilaterally. GI: No signs and/or symptoms were reported involving the gastrointestinal system. : No signs and/or symptoms were reported regarding the genitourinary system. EENT: No signs and/or symptoms were reported regarding the EENT system. Derm: No signs and/or symptoms reported regarding the dermatologic system. Skin is pink, warm \\T\\ dry. normal. Musculoskeletal: No signs and/or symptoms reported regarding the musculoskeletal system. Circulation, motion, and sensation intact. 22:30 Reassessment: Patient request pain medication for bodyaches, and nausea. Notified Dr. sonia Gusman. Order recieved. 23:20 Reassessment: Patient appears in no apparent distress at this time. No changes from aj1 previously documented assessment. Patient and/or family updated on plan of care and expected duration. Pain level reassessed. Patient is alert, oriented x 3, equal unlabored respirations, skin warm/dry/pink. 23:35 Reassessment: Patient requests a warm blanket, no fever noted at this time. Patient aj1 provided blanket. Vital Signs: 21:21 BP 126 / 74; Pulse 92; Resp 17 S; Temp 99.6(O); Pulse Ox 97% on R/A; Weight 57.61 kg jd3 (R); Height 4 ft. 11 in. (149.86 cm) (R); Pain 10/10; 22:30 BP 125 / 80; Pulse 89; Resp 18; Pulse Ox 98% on R/A; aj1 23:30 BP 121 / 76; Pulse 86; Resp 17; Pulse Ox 98% on R/A; rv 05/09 00:30 BP 118 / 81; Pulse 81; Resp 17; Temp 98.7(O); Pulse Ox 98% ; rv 05/08 21:21 Body Mass Index 25.65 (57.61 kg, 149.86 cm) jd3 ED Course: 05/08 21:06 Patient arrived in ED. cl3 21:20 Triage completed. jd3 21:21 Arm band placed on. jd3 21:23 Tania Mena RN is Primary Nurse. aj1 21:28 Sim Gusman MD is Attending Physician. pk 22:21 XRAY CXR (1 view) In Process Unspecified. EDMS 22:22 Patient has correct armband on for positive identification. Bed in low position. Call aj1 light in reach. Side rails up X 1. 22:22 No provider procedures requiring assistance completed. aj 05/09 00:34 Patient did not have IV access during this emergency room visit. rv Administered Medications: 05/08 23:00 Drug: Tylenol 500 mg Route: PO; [facility] 05/09 00:33 Follow up: Response: No adverse reaction; Marked relief of symptoms rv 05/08 23:00 Drug: Zofran (Ondansetron) 4 mg Route: PO; [facility] 05/09 00:33 Follow up: Response: No adverse reaction; Marked relief of symptoms rv Outcome: 00:19 Discharge ordered by MD. pkl 00:34 Discharged to home ambulatory. rv 00:34 Condition: good 00:34 Discharge instructions given to patient, Instructed on discharge instructions, follow up and referral plans. medication usage, Demonstrated understanding of instructions, follow-up care, medications, Prescriptions given X 1. 00:34 Patient left the ED. rv Addendum: 05/11/2020 13:19 Addendum: COVID-19 Result: Negative result given to RN to notify pt. Attempted to d m5 contact pt regarding negative COVID-19 swab results. Left voice mail. 13:32 Addendum: COVID-19 Result: Negative result given to RN to notify pt. Notified pt of d m5 negative COVID 19 swab results. Pt advised that even with a negative test result they should remain in isolation until symptom free for 3 days without medication. Pt also advised to return to the ED for worsening symptoms. Signatures: Dispatcher [employer] EDMS Tania Mena RN RN aj1 Nae Sterling RN RN dm5 Sim Gusman MD MD pkFritz Lim RN RN jd3 Franky Horn RN RN rv Lewis, Charde cl3
[2020-05-09 00:46] VITALS: O2SAT 98
[2020-05-09 00:49] VITALS: BP 118/81; TEMP 98.7
== END 2020-05-09 00:34 | disposition home or self-care (01) ==
LOC: ER 21:04
DX: J06.9 Acute upper respiratory infection, unspecified (principal); Z20.828 Contact with and (suspected) exposure to other viral communicable diseases; R51 Headache; Z79.01 Long term (current) use of anticoagulants; Z88.0 Allergy status to penicillin; Z88.1 Allergy status to other antibiotic agents; Z88.2 Allergy status to sulfonamides; Z88.3 Allergy status to other anti-infective agents; Z88.5 Allergy status to narcotic agent; Z88.6 Allergy status to analgesic agent; Z88.8 Allergy status to other drugs, medicaments and biological substances; Z91.013 Allergy to seafood; Z91.018 Allergy to other foods; Z91.040 Latex allergy status; Z91.048 Other nonmedicinal substance allergy status
CPT/HCPCS: 87070; 85025; 36415; 87081; 87804 ×2; 71045; 99283; U0002

== ENCOUNTER 2020-05-23 22:40 | Emergency (ER) | payer MEDICAID, OTHER ==
--- OUTSIDE RECORDS SUMMARY | 2020-05-23 22:43 | XMS REPORT | Clinical Summary ---
:1980 Author Organization [facility] Address [address] [place] [address] Care Team Providers Name Role Phone Yoni [...] Not on file Results Not on fileafter 05/23/2019 Insurance Payer Benefit Plan / Group Subscriber ID Type Phone A [employer] MEDICAID MEDICAID [place] xxxxxxxxx Advance Directives For more information, please contact:[facility], [place] [phone] Code Status Date Activated Date Inactivated Comments Full Code 08/17/2018 7:42 PM This code status was determined by: Patient
--- OUTSIDE RECORDS SUMMARY | 2020-05-23 22:43 | XMS REPORT | Clinical Summary ---
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
--- OUTSIDE RECORDS SUMMARY | 2020-05-23 22:44 | XMS REPORT | Continuity of Care Document ---
:1980 Author Organization [facility] t Address [address] [place] [address] Care Team Providers Name Role Phone MILTON Primary Care Physician Unavailable Corine BARRAGAN M Attending Clinician Valerie LARSEN Attending Clinician Donny LARSEN, K.H. Attending Clinician Doctor Unassigned, Name Attending Clinician Unavailable LEONOR Attending Clinician Unavailable BADAR Attending Clinician Unavailable Lexus LARSEN Admitting Clinician LEONOR Admitting Clinician Unavailable SRUTHIAR Admitting Clinician Unavailable Problems Condition Condition Condition [...] [facility] - adverse 00:00: Medical reaction 00 [place] [facility] Clindamy Propensi Active Rash 2017-[address] [facility] [address] [facility] ty to 10-17 [facility] - adverse 00:00: Medical reaction 00 [place] [facility] Codeine Propensi Active 2017-[address] ty to 10-17 ation, [facility] - adverse 00:00: confusion Medica l reaction 00 [place] [facility] Tolterod Propensi Active Rash 2017-[address] ine ty to 10-17 [facility] - adverse 00:00: Medical reaction 00 [place] [facility] Gabapent Propensi Active Shortness Of 2017-[address] in ty to Breath, Rash 10-17 [facility] - adverse 00:00: Medical reaction 00 [place] [facility] Iodine Propensi Active Rash 2017-[address] [facility] [facility] ty to 10-17 [facility] - Iodide adverse 00:00: Medical Containi reaction 00 [place] ng s Products Latex Propensi Active Rash [...] ics) s Cefixime Propensi Active Rash 2017-[address] [facility] [address] ty to 10-17 [facility] - adverse 00:00: Medical reaction 00 Center s Tramadol Propensi Active Rash 2017-[address] [facility] [address] ty to 10-17 [facility] - adverse 00:00: Medical reaction 00 Center s Social History Social Habit Start Date Stop Date Quantity Comments Source History [facility] Meth odist Alcohol Std Drinks History [facility] od[facility] Alcohol Binge Sex Assigned At [facility] Alcohol intake 2018-09-04 2018-09-04 Current [facility] 00:00:00 00:00:00 non-drinker of alcohol (finding) History SDOH 2018-09-04 2018-09-04 1 [facility] Alcohol Frequency 00:00:00 00:00:00 Smoking Status Start Date Stop Date Source Former smoker 2018-09-04 00:00:00 2018-09-04 00:00:00 [facility] Medications Ordered Filled Start Stop Current Ordering [...] times a day. busPIRone 2017-09 Yes 15mg [id number] Take 15 mg [facility] (BUSPAR) 10 2-11 [id number] by mouth 3 Methodi MG tablet 19:13: [...] route Medica l 55 mcg 07 daily. [place] nasal inhaler esomeprazol 2017-09 Yes 40mg QD Take [address] [facility] (NEXIUM) -23 by mouth [facility] - 40 MG 19:34: daily. Medical capsule 07 [place] albuterol 2017-09 Yes 2{puff} Inhale [address] HFA 1-23 puffs by [facility] - (VENTOLIN 19:34: mouth via Med ical HFA) 90 07 inhaler. [place] mcg/actuati on inhaler levETIRAcet 2017-09 Yes 1000mg [...] 10 mg 18:45: daily. Medical tablet 43 [place] pregabalin 2017-09 Yes 25mg QD Take 25 [...] 18:45: Bronchitis mouth Medica l 42 daily. [place] digoxin 2017-09 Yes 125ug QD Take [facility] (LANOXIN) 1-23 mcg by [facility] - 0.125 MG 18:45: mouth Medical tablet 42 daily. [place] venlafaxine 2017-09 Yes 150mg QD Take [address] (EFFEXOR-XR 1-23 mg by [facility] - ) 150 MG 24 18:45: mouth Medic al hr capsule 42 daily. [place] apixaban 2017-09 Yes 5mg QD Take [address] [facility] (ELIQUIS) 5 23 by mouth [facility] - mg Tab 18:45: daily. Medical tablet 42 [place] ARIPiprazol 2017-09 Yes 10mg QD Take [address] (ABILIFY) 10-17 by mouth [facility] - 10 MG 18:45: daily. Medical disintegrat 41 [place] ing tablet ARIPiprazol 2017-09 Yes 5mg QD Take [address] e (ABILIFY) -23 by mouth [facility] - 5 MG tablet 18:45: nightly. Me dical 41 [place] albuterol 2017-09 Yes 1{ampul Q.[id number] Take [address] (ACCUNEB) 1-23 e} [id number] ampule by [facility] - 1.25 mg/3 18:45: [...] 18:45: daily as Me dical 41 needed. [place] fluticasone 2017-09 Yes 1{puff} QD Inhale [address] -vilanterol 1-23 puff by [facility] - (BREO 18:45: mouth via Medical ELLIPTA) 41 inhaler Center 100-25 daily. mcg/dose DsDv Procedures This patient has no known procedures. Plan of Care Planned Activity Planned Date Details Comments Source Future Scheduled 2020-06-25 INFLUENZA VACCINE [facility] Test 00:00:00 [code = INFLUENZA VACCINE] Future Scheduled 2002 Screening for [facility] Test 00:00:00 malignant neoplasm of cervix (procedure) [code = 713962565] Encounters Start End Encounter Admission Attending Care Care Encounter Source Date/Time Date/Time Type Type Clinicians Facility Department ID 2020-05-13 2020-05-13 Transition Collette Pool [id number] 00:00:00 00:00:00 of Care Catie Keen [id number] [place] [id number] 2020-05-10 2020-05-12 Hospital Jannette Padilla [id number] 10:02:00 17:50:00 Encounter Svetlana Pinky [id number] [facility] [id number] 2020-04-29 2020-04-29 Telephone NAKUL Hines [id number] 00:00:00 00:00:00 Navi Stafford [id number] [place] 4.2.7.2.686 Profleonard [id number] [address] 2020-04-14 2020-04-14 Telephone Donny MOLENARD [id number] 00:00:00 00:00:00 Navi Stafford [id number] Britt 4.2.7.2.686 Professradha [id number] [address] 2020-04-14 2020-04-14 Orders Doctor NUNO [id number] 00:00:00 00:00:00 Only Unassigned, PINKY 350.1.13.10 [place] [facility] [id number] [id number] 2020-04-10 2020-04-10 Office Donny [facility] [id number] 09:43:51 10:36:50 Visit Navi Stafford [id number] Jacki [id number] leonard [id number] [facility] 059 [facility] 2017-09-06 2017-09-08 [facility] [id number] 10:12:00 02:32:00 [facility] Results Test Description Test Time Test Comments Results Result Comments Source POCT-GLUCOSE METER 2018-08-21 10:22:00 Test Item Value Reference Range Interpretation Comme [facility] POC-GLUCOSE METER (ARNOL) (test 102 mg/dL 70-110 TESTED AT [facility] [address] [facility] code = 1538) [facility] [id number] MR, MRA, BRAIN, WITHOUT [id number] 09:32:00Reason for exam:->Ischemic Stroke EvaluationFINAL REPORT MRA Head CLINICAL HISTORY: Ischemic Stroke TECHNIQUE: MRA of the head utilizing 3-D ewsv-rj-bjotey technique, with 3-D reconstructions. COMPARISON: None FINDINGS: There is no evidence of intracranial aneurysm, focal stenosis, or major branch vessel occlusion. IMPRESSION: No evidence for a major moapa of Mendes proximal branch vessel occlusion. MRA Neck CLINICAL HISTORY: Ischemic Stroke TECHNIQUE: MRA of the neck utilizing 2-D and 3-D zoac-mc-uipewl technique, with 3-D reconstructions. COMPARISON: None FINDINGS: The carotid arteries in the neck are patent including their bifurcations. There is antegrade flow in the vertebral arteries in the neck. IMPRESSION: No evidence of hemodynamically significant stenosis in the cervical carotid or vertebral arteries by NASCET criteria. Signed: Santos Winn MDReport Verified Date/Time: 08/21/2018 09:32:09 Reading Location: [address] Neuro Reading Room MR, MRA, NECK, WITHOUT IV [id number] 09:32:00Reason for exam:->Ischemic Stroke EvaluationFINAL REPORT MRA Head CLINICAL HISTORY: Ischemic Stroke TECHNIQUE: MRA of the head utilizing 3-D ricm-it-urmhof technique, with 3-D reconstructions. COMPARISON: None FINDINGS: There is no evidence of intracranial aneurysm, focal stenosis, or major branch vessel occlusion. IMPRESSION: No evidence for a major moapa of Mendes proximal branch vessel occlusion. MRA Neck CLINICAL HISTORY: Ischemic Stroke TECHNIQUE: MRA of the neck utilizing 2-D and 3-D sybk-qs-axrsur technique, with 3-D reconstructions. COMPARISON: None FINDINGS: The carotid arteries in the neck are patent including their bifurcations. There is antegrade flow in the vertebral arteries in the neck. IMPRESSION: No evidence of hemodynamically significant stenosis in the cervical carotid or vertebral arteries by NASCET criteria. Signed: Santos Winneport Verified Date/Time: 08/21/2018 09:32:09 Reading Location: [address] Neuro Reading Room MR, BRAIN, WITHOUT [id number] 09:25:00Reason for exam:- >Ischemic Stroke EvaluationFINAL REPORT [...] Acute on chronic pansinusitis. Signed: Santos Winn Verified Date/Time: 08/21/2018 09:25:25 Reading Location: [facility] C0[facility] Neuro R eading Room POCT-GLUCOSE [id number] 21:26:00 Test Item Value Reference Range Interpretation Comments POC-GLUCOSE METER 119 mg/dL 70-110 H TESTED AT [facility] 67 ([facility]) (test code = AYLIN SWAN MA 1538) 17381 POCT-GLUCOSE [id number] 18:03:00 Test Item Value Reference Range Interpretation Comments POC-GLUCOSE METER 119 mg/dL 70-110 H TESTED AT [facility] 6720 ([facility]) (test code = AYLIN Rivera [facility] 1538) [address] POCT-GLUCOSE [id number] 12:39:00 Test Item Value Reference Range Interpretation Comments POC-GLUCOSE METER 120 mg/dL 70-110 H TESTED AT [place] [address] ([facility]) (test code = AYLIN Rivera [facility] 1538) [address] RAD, CHEST, 1 VIEW, NON [id number] 12:04:00Reason for exam:->To Locate Heart Device (Pacemaker)Should [...] MDReport Verified Date/Time: 08/20/2018 12:04:06 Reading Location: [facility] Radiology Reading Room POCT-GLUCOSE [id number] 09:17:00 Test Item Value Reference Range Interpretation Comments POC-GLUCOSE METER 121 mg/dL 70-110 H TESTED AT [facility] 67[address] [facility] (test code = AYLIN Rivera [facility] 1538) [address] BASIC METABOLIC [id number] 06:56:00 Test Item Value Reference Range Interpretation [...] NOT APPLICABLE FOR DIALYSIS PATIEN TS. POCT-GLUCOSE [id number] 21:09:00 Test Item Value Reference Range Interpretation Comments POC-GLUCOSE METER 109 mg/dL 70-110 TESTED AT [facility] 67 ([facility] (test code = AYLIN Rivera [facility] 1538) [address] POCT-GLUCOSE [id number] 17:15:00 Test Item Value Reference Range Interpretation Comments POC-GLUCOSE METER 117 mg/dL 70-110 H TESTED AT [place] [address] ([facility]) (test code = [facility] Miguel [facility] 1538) [address] VITAMIN B12 AND [id number] 06:39:00 Test Item Value Reference Range Interpretation Comments VITAMIN B12 (BEAKER) (test code = 524 pg/mL 213-816 774) FOLATE (BEAKER) (test code = 362) 13.5 ng/mL >=7.0 BASIC METABOLIC [id number] 05:48:00 Test Item Value Reference Range Interpretation [...] S NOT APPLICABLE FOR DIALYSIS PATIEN TS. [id number] 15:42:00 Test Item Value Reference Range Interpretation Comments RPR SCREEN (BEAKER) (test code = Nonreactive Nonreactive 420) HEMOGLOBIN [id number] 09:14:00 Test Item Value Reference Range Interpretation Comments HEMOGLOBIN A1C (BEAKER) (test code = 5.3 % 4.3-6.1 368) TSH/FREE T4 IF [id number] 04:49:00 Test Item Value Reference Range Interpretation Comments THYROID STIMULATING HORMONE 3.18 uIU/mL 0.35-4.94 (BEAKER) (test code = 772) BASIC METABOLIC [id number] 04:38:00 Test Item Value Reference Range Interpretation [...] NOT APPLICABLE FOR DIALYSIS PATIEN TS. LIPID [id number] 04:38:00 Test Item Value Reference Range Interpretation [...] 130-159 High 160-189 Very High >=190HEPATIC FUNCTION [id number] 04:38:00 Test Item Value Reference Range Interpretation [...] (test code = 413) AFB Culture and [id number] 13:24:00Specimen/Source: Wound/PACEMAKERCollected: 09/05/2017 19:45 Status: Final Last Updated: 11/01/2017 13:24 VOH-Llkmb-Fkkfvptppasx (Final) (Final) 09/07/17 No acid fast bacill seen on direct smear Culture Result (Final) (Final) 11/01/17 No growth of AFB at six (6) weeksFungus Culture with [id number] 12:12:00 Specimen/Source: Wound/PACEMAKERCollected: 09/05/2017 19:45 Status: Final Last Updated: 10/22/2017 12:12 Fungal Smear Result (Final) (Final) 09/06/17 No yeast or hyphae seen Culture Result (Final) (Final) 10/22/17 No fungus isolated at 6 weeksCulture, Blood [id number] 08:23:00Specimen: BloodCollected: 09/04/2017 20:30 Status: Final Last Updated: 09/10/2017 08:23 Culture Result (Final) (Final) No Growth After 5 DaysCulture, Blood [id number] 08:23:00Specimen: BloodCollected: 09/04/2017 20:15 Status: Final Last Updated: 09/10/2017 08:23 Culture Result (Final) (Final) No Growth After 5 DaysCulture, Wound [id number] 08:52:00Specimen: WoundCollected: 09/05/2017 19:45 Status: Final Last Updated: 09/08/2017 08:52 Gram Stain (Final) (Final) 09/06/17 No organisms seen, Few WBC's Culture Result (Final) (Final) 09/08/17 Anaerobic culture:No anaerobes isolated at 3 days Isolate (Final) (Final) 09/07/17Few Staph-coag positive Isolate Staph-coag positive JERMAINE (mcg/ml) Amoxicillin/Clav (AUG)<=4/2 Susceptible Ampicillin (AM) >8 Resistant Ampicillin/Sulb (A/S) <=8/4 Susceptible Cefazolin (CFZ) <=4 Susceptible Ceftriaxone (PRESSING MACHINE TENDER) <=4 Susceptible Chloramphenicol (C) <=8 Susceptible Ciprofloxacin (CP) <=1 Susceptible Clindamycin (CM) 0.5 Susceptible Erythromycin (E) <=0.25 Susceptible Gentamicin (GM) <=1 Susceptible Imipenem (IMP) <=4 Susceptible Levofloxacin (LEV) <=0.5 Susceptible Linezolid (LNZ) 4 Susceptible Oxacillin (OX1) 0.5 Susceptible Penicillin (P) >8 Resistant Rifampin (RA) <=1 Susceptible Tetracycline (TE) <=1 Susceptible Trimethoprim/Sulfa <=0.5/9.Susceptible (SXT) 5 Vancomycin (VA) 2 SusceptibleRenal [id number] 08:51:00 Test Item Value Reference Range Interpretation [...] National Kidney Foundation,http ://nkd ep.nih.gov CBC with [id number] 07:39:00 Test Item Value Reference Range Interpretation [...] code = ALYMPH) 1.7 K/cumm 0.5-4.6 N Craig Abs (test code = AMONO) 0.3 K/cumm 0.0-1.2 N Eos Abs (test code = AEOS) 0.29 K/cumm 0.00-0.74 N Baso Abs (test code = ABASO) 0.0 K/cumm 0.00-0.21 N Vancomycin, [id number] 12:33:00 Test Item Value Reference Range Interpretation Comments Vanco, Trou (test code = VANTR) 7.9 ug/mL 10.0-20.0 L Magnesium, [id number] 06:37:00 Test Item Value Reference Range Interpretation Comments Magnesium (test code = MG) 2.4 mg/dL 1.7-2.5 N Renal [id number] 06:29:00 Test Item Value Reference Range Interpretation [...] into account, if the informationis provided. If e race is not provided , and [...] National Kidney Foundation,http ://nkd ep.nih.gov BHCG, Serum, [id number] 06:26:00 Test Item Value Reference Range Interpretation Comments Preg Qual [Se] (test code = BSHCG) Negative Negative N CBC with [id number] 06:24:00 Test Item Value Reference Range Interpretation [...] code = ALYMPH) 1.6 K/cumm 0.5-4.6 N Craig Abs (test code = AMONO) 0.4 K/cumm 0.0-1.2 N Eos Abs (test code = AEOS) 0.18 K/cumm 0.00-0.74 N Baso Abs (test code = ABASO) 0.0 K/cumm 0.00-0.21 N XR CHEST 1 [id number] 16:29:55XR CHEST 1 VIEWLOCATION: [id number]: None.INDICATION: REVIEW PICC LINE PLACEMENTDISCUSSION:AP chest and [...] = TSH) 3.44 mIU/mL 0.270-4.200 N Lipid [id number] 05:47:00 Test Item Value Reference Range Interpretation Comments Cholesterol (test 160 mg/dL 0-200 N code = CHOL) Triglycerides (test 126 mg/dL 9-200 N code = TRIG) HDL (test code = 35 mg/dL 50-60 L HDL) Chol/HDL (test code 4.6 Ratio 0.0-4.4 H = CHOLPHDL) LDL, Calculated 100 0-130 N (NOTE)RISK O F HEART (test code = LDLC) DISEASEPu blished by Armenian Heart AssociationAnal yte Optim al Boderline Increased RiskC HOL <200 200-239 >240TRI G <150 150-199 >200HDL Male: >60 <40HDL Female: >60 <50 LDL < 100 130-15 9 >160 LDL NEAR OPTIMAL IS 100- 129 VLDL (test code = 25 mg/dL 5-40 N VLDL) LDL/HDL (test code = 3 LDLPHDL) Basic Metabolic [id number] 05:47:00 Test Item Value Reference Range Interpretation [...] is not provided , and the patient isAfjavier-Amomar can, multiply by 1.2 12. If sex [...] the National Kidney Foundation,http ://nkd ep.nih.gov Magnesium, [id number] 05:47:00 Test Item Value Reference Range Interpretation Comments Magnesium (test code = MG) 2.3 mg/dL 1.7-2.5 N CBC with [id number] 05:36:00 Test Item Value Reference Range Interpretation [...] code = ALYMPH) 2.2 K/cumm 0.5-4.6 N Craig Abs (test code = AMONO) 0.3 K/cumm 0.0-1.2 N Eos Abs (test code = AEOS) 0.24 K/cumm 0.00-0.74 N Baso Abs (test code = ABASO) 0.0 K/cumm 0.00-0.21 N Partial Thromboplastin [id number] 21:26:00 Test Item Value Reference Range Interpretation Comments aPTT (test code = PTT) 29.00 seconds 24.39-37.25 N Prothrombin [id number] 21:26:00 Test Item Value Reference Range Interpretation Comments PT (test code = PT) 10.70 seconds 9.78-13.35 N INR (test code = INR) 0.95 Ratio 0.6-1.2 N Comprehensive Metabolic [id number] 21:23:00 Test Item Value Reference Range Interpretation [...] National Kidney Foundation,http ://nkd ep.nih.gov CBC with [id number] 21:16:00 Test Item Value Reference Range Interpretation [...] code = ALYMPH) 2.2 K/cumm 0.5-4.6 N Craig Abs (test code = AMONO) 0.4 K/cumm 0.0-1.2 N Eos Abs (test code = AEOS) 0.17 K/cumm 0.00-0.74 N Baso Abs (test code = ABASO) 0.1 K/cumm 0.00-0.21 N
--- OUTSIDE RECORDS SUMMARY | 2020-05-23 22:48 | XMS REPORT | Summary of Care ---
:1980 Author Organization [facility] Address [address] [place] [address] Care Team Providers Name Role Phone Joshua Reyes Insurance Hmo Yoni Mora MD Primary Care Provider Reason for Referral (Routine) Status Reason Specialty Diagnoses / Referred By Referred To Procedures Contact Contact New Request Neurology Diagnoses Stroke-like symptoms Mari Jones MD Procedures EPILEPSY MONITORING [address] [place] [place] [phone] (Routine) Status Reason Specialty Diagnoses / Referred By Referred To Procedures Contact Contact New Request Diagnoses Stroke-like symptoms Mari Jones MD Dada, Mohammed Procedures Discharge Follow-up: PCP DIYA MORA; 3-5 Days [address] [facility] [place]. [address] [facility] [address] Phone: [phone] Phone: [phone] Fax: MRI/CAT Scan (Routine) Status Reason Specialty Diagnoses / Referred By Referred To Procedures Contact Contact New Request Diagnostic Diagnoses Stroke-like symptoms Aureliano Wisdom, Radiology Procedures MR ANGIOGRAM NECK W WO CONTRAST MR ANGIOGRAM NECK WO CONTRAST MD Garret [address] [place] [address] MRI/CAT Scan (Routine) Status Reason Specialty Diagnoses / Referred By Referred To Procedures Contact Contact New Request Diagnostic Diagnoses Stroke-like symptoms Amado Padilla, Radiology Procedures MR BRAIN WO CONTRAST [address] [place], [place] [address] (Routine) Status Reason Specialty Diagnoses / Referred By Referred To Procedures Contact Contact New Request EEG Diagnoses Stroke-like symptoms Amado Padilla MD Procedures Electroencephalogram (EEG) - Duration of test: 20-[address] [place], [place] [id number] MRI/CAT Scan (Routine) Status Reason Specialty Diagnoses / Referred By Referred To Procedures Contact Contact New Request Diagnostic Diagnoses Stroke-like symptoms Amado Padilla, Radiology Procedures MR ANGIOGRAM HEAD WO CONTRAST [address] [place], [place] [id number] Radiology Services (Routine) Status Reason Specialty Diagnoses / Referred By Referred To Procedures Contact Contact New Request Diagnostic Diagnoses Stroke-like symptoms Amado Padilla, Radiology Procedures XR CHEST [address] [place], [place] [id number] (Routine) Status Reason Specialty Diagnoses / Procedures Referred By Miguel eferred To Contact Contact New Request Cardiology Diagnoses Stroke-like symptoms Amado Padilla, Procedures STROKE Protocol - Echocardiogram Routine with Doppler Color [address] [place], [place] [id number] Reason for Visit Auth/Cert Status Reason Specialty Diagnoses / Referred By Referred To Procedures Contact Contact Neurological Surgery Diagnoses Stroke like symptoms Yana [address] [place] [address] Encounter Details Date Type Department Care Team Description 05/10/2020 - Hospital Encounter Neurology/Neurologi Naseem Padilla MD [address] [place], [place] [id number] Functional 05/12/2020 blane Surgery (Kenneth Figueroa MD [address] [place] [address] neurological symptom 11B) disorder with [address] [facility] [place] [address] paralysis [phone] Allergies Active Allergy Reactions Severity Noted Date [...] as of this encounter (statuses as of 05/12/2020) Medications Medication Sig Dispensed Refills Start Date [...] 1 T PO D, 1 06/16/2017 Act croey tablet in am benztropine 1 mg TK 1 T PO BID 1 06/19/2017 Active tablet busPIRone 15 mg TK 1 T PO BID 1 06/16/2017 Active tablet topiramate 100 mg TK 1 T PO HS 1 06/16/2017 Active tablet venlafaxine XR 150 daily with 06/16/2017 Active mg 24 hr capsule breakfast. fluticasone-vilant Inhale 1 Puff 0 Active florentino [...] 2 tabletIndications: (two) times Seizure cerebral daily. pregabalin Take 25 mg by 0 Activ e (LYRICA) 25 mg mouth at capsule bedtime. pantoprazole 40 mg Take 1 tablet 30 tablet 0 10/31/2019 Active EC by mouth tabletIndications: daily. Syncope, unspecified syncope type, Ventricular tachycardia, Intercostal pain, Essential hypertension venlafaxine 75 mg Take 75 mg by 0 Active tablet mouth at bedtime. apixaban (ELIQUIS) Take 1 tablet 180 tablet 3 04/10/2020 Active 5 mg by mouth 2 tabletIndications: (two) times Recurrent DVT daily. Indications: Recurrent DVT carvediloL 25 mg Take 1 tablet 180 tablet 3 04/10/2020 Active tabletIndications: by mouth 2 History of DVT (two) times (deep vein daily with thrombosis) meals. digoxin 125 mcg Take 1 tablet 30 tablet 3 04/14/2020 Active (0.125 mg) by mouth tabletIndications: daily. History of DVT (deep vein thrombosis), Inappropriate sinus tachycardia ivabradine Take 5 mg by 30 tablet 2 04/10/2020 05/10/20 Disco ntinued (CORLANOR) 5 mg mouth daily. 20 ( Allergic TabIndications: resp onse) Inappropriate sinus tachycardia documented as of this encounter (statuses as of 05/12/2020) Active Problems Problem Noted Date Functional neurological symptom disorder with weakness or paralysis 05/12/2020 Syncope 10/29/2019 PVT (paroxysmal ventricular tachycardia) 10/29/2019 Digoxin toxicity 10/29/2019 Atrial fibrillation 10/29/2019 Dyspnea 08/25/2019 Seizure disorder 08/25/2019 Mitral valve regurgitation 04/29/2019 Excessive anticoagulation 04/29/2019 Deep vein thrombosis of lower extremity 04/29/2019 Anxiety disorder 04/29/2019 Asthma 04/29/2019 E44.0 Moderate protein calorie malnutrition 02/06/2019 Dysphagia 08/03/2018 Iron deficiency anemia, unspecified iron deficiency an emia type 07/13/2018 Overview: Added automatically from request for yara arslan [id number] Abdominal pain, unspecified abdominal location 018 Overview: Added automatically from request for yara arslan [id number] Nausea and vomiting, intractability of vomiting not sp ecified, unspecified 07/13/2018 vomiting type Overview: Added automatically from request for yara arslan [id number] Non-cardiac chest pain 04/27/2018 Essential hypertension 04/27/2018 Pacemaker 04/27/2018 PAF (paroxysmal atrial fibrillation) 04/27/2018 History of cardiac pacemaker in situ 08/23/2017 Tachycardia, unspecified 06/22/2017 Elevated liver enzymes 07/23/2014 Pseudoseizure 04/15/2014 Left sided numbness 03/22/2014 Prediabetes 09/24/2013 Loss of weight 09/24/2013 Hypothyroidism 09/24/2013 Overview: ICD10 Diagnosis Term Clinical Trials Nurse Utility Hypoglycemia 08/21/2013 Overview: ICD10 Diagnosis Term Clinical Trials Nurse Utility documented as of this encounter (statuses as of 05/12/2020) Resolved Problems Problem Noted Date Resolved Date Stroke-like symptoms 05/10/2020 05/12/2020 Stroke 06/15/2019 05/12/2020 Metabolic syndrome X 07/23/2014 07/23/2014 documented as of this encounter (statuses as of 05/12/2020) Immunizations Name Administration Dates Next Due Pneumococcal [...] Sign Reading Time Taken Comments Blood Pressure 126/81 05/12/2020 4:12 PM CDT Pulse 99 05/12/2020 4:12 PM CDT Temperature 36.8 C (98.3 F) 05/12/2020 4:12 PM CDT Respiratory Rate 18 05/12/2020 4:12 PM CDT Oxygen Saturation 95% 05/12/2020 4:12 PM CDT Inhaled Oxygen Concentration - - Weight 56.2 kg (124 lb) 05/10/2020 10:00 AM CDT Height - - Body Mass Index 25.04 04/10/2020 10:17 AM CDT documented in this encounter Discharge Instructions AttachmentsThe following attachments cannot be sent through Care Everywhere. Blood Thinners (Anticoagulants), Using (Citizen Of [place])Atrial Fibrillation, Discharge Instructions for (Citizen Of [place])Falls, Preventing, Staying Active (Citizen Of [place])documented in this encounter Progress Notes Tam Gill PT - 05/12/2020 2:50 PM CDT Physical Therapy Progress Note: Discharge Recommendations: Therapy Needs and Potential: Patient without any skilled PT needs at this time. Challenges to Home Transition: none Equipment recommendations: rolling walker PAIN: denies pain PRECAUTIONS: Weight Bearing Precaution: NA General Precautions: PPE used:Gloves and Surgical mask, Bracing/Cast present or required:N/A S: Patient agreeable to working with PT. O: Patient met Semi reclined in bed. Patient seen for the following: Bed mobility: Supine to sit: Modified independent Scooting to edge of bed: Modified independent Sit to supine: Modified independent Transfers: Sit to stand: Modified independent using Rolling Walker Stand to sit: Modified independent using Rolling Walker Gait: Assisted patient with ambulation as follows: 165 feet using Rolling Walker and Modified independent Patient presenting with Step-to gait pattern. . Decreased heel strike on LLE analyzed gait pattern and instructed for heel-toe pattern to improve gait quality Therapeutic exercise: patient educated in Adaptive equipment , Fall prevention, General strengthening and Safety awareness., instructed patient in the following: heel raises, patient/caregiver instructed to perform HEP 3times per day, 2 sets of 20 repetitions., patient/caregiver demonstrates understanding of instructions. educated to gradually increase ambulation distance and use of device forgait to increase safety After session, patient Semi reclined in bed and call cooper provided. Nurse notified. A: Patient tolerated session well. Met goals 2 out of 4 however modified independent with all functional mobility. P: PT will sign off this time . Total Timed Tx Codes in Minutes: 25 Min Total Treatment Time in Minutes: 25 Min Tam Gill PT, DPT Pager [phone] Aurora Maki SW - 05/12/2020 2:38 PM CDT Care Management Discharge Disposition Note (DCDN) 5-2-1 Interventions: Disease specific education;Intensive medication reconciliation/management;Teachback;Follow-up phone calls;Clear discharge plan 5-2-1 Providers: Family Life Educator/Electrical Transmission Engineer;Nurse 5-2-1 Patient Capacity Improvements: Referral to Care Transition Team Discharge Plan for ongoing care and services: Home/Caregiver Home Is this a new referral: Patient Choice completed for referred services: DME location: Other DME location: Durable Medical Equipment: Home Health location: Discharge location(s): [facility] [address] [place] [address] Patient choice completed for referred services: Discussed with patient/patients family involved in decision making: Patient or family caregiver understands, and agrees with discharge plan. [facility] resources/referrals made or provided to patient: Resources/Referrals: P referral Transportation: Private Vehicle Linus tamayo [phone] Mental Status: Alert & Oriented to Person,Place & Time Living Arrangement: Home Other living arrangement: Address of living arrangement: [address] [place] [address] 3 [place] [address] Funding Resources: Medicaid O Nursing informed of discharge plan: Yes Name of RN informed: Lola Expected discharge date: 05/13/2020 Time: Additional Information: LULU/RAJ Name & Contact number: RAJ Robin Ph. [phone] The following information has been provided to the facility noted above: reason for the patient discharge or transfer; patients physical and psychosocial status; summary of care, treatment, servicesprovided to patient; and the patient progress toward goals. Aurora Maki SW - 05/12/2020 12:27 PM CDTSocial Work note: RAJ referred to [facility] (22% readmission [place]) To follow MARTINA Reynolds-IPR [phone] [address] [phone] Care Mgmt Dept Karla Henriquez SLP - 05/12/2020 11:31 AM CDTSpeech-Language Pathology 05/12/2020 1131 SULFONATION EQUIPMENT OPERATOR attempted to see patient for treatment this morning however per PCT, patient off unit for MRI. Will return to see patient later today if time permits. Karla Mohamud MS, CCC-SULFONATION EQUIPMENT OPERATOR Speech Language Pathology Pager: [phone] Office Number: [phone] signed by Karla Mohamud, PRINCE at 05/12/2020 11:45 AM Mariela Rollins RN - 05/11/2020 2:48 PM CDTI, Mari Currie MD, after reviewing this case with the Family Life Educator, I concur this case is appr opriate for inpatient admission. The change to inpatient admission is based on the level of care this patient is receiving, medical necessity, risks associated and the expected duration of stay. The inpatient admission order has been entered. Associated attestation - Mari Jones MD - 05/11/2020 3:43 PM CDTsGuy Samano MD - 05/11/2020 8:19 AM CDT STROKE PROGRESS NOTE DATE OF SERVICE: 05/11/2020 08:19 Day of Hospitalization: 0 CHIEF COMPLAINT: Stroke-like symptoms 24-HOUR EVENTS: - Pacemaker identified. Reaching out to MRI for imaging - Failed bedside dysphagia screen - PT working with patient. - No acute events overnight SUBJECTIVE: Patient appears to be doing well and has no complaints. STROKE DOCUMENTATION NIH STROKE SCALE LOC: 0 Alert: Keenly Responsive LOC QUESTIONS: 0 Answers Both Questions Correctly LOC COMMANDS: 0 Performs Both Tasks Correctly BEST GAZE: 0 Normal VISUAL: 0 No Visual Loss FACIAL PALSY: 0 Normal MOTOR ARM-LEFT: 1 Drift MOTOR ARM-RIGHT: 0 No Drift MOTOR LEG-LEFT: 1 Drift MOTOR LEG-RIGHT: 0 No Drift LIMB ATAXIA: 0 Absent SENSORY: 2 Tiktrb-sw-Plhxm Sensory Loss BEST LANGUAGE: 0 No Aphasia DYSARTHRIA: 1 Ulql-eu-Aeculyaf Dysarthria EXTINCTION AND INATTENTION (FORMERLY NEGLECT): 0 No Abnormalty STROKE SCALE INTERVAL: Admission STROKE SCALE TOTAL SCORE: 5 OBJECTIVE: PHYSICAL EXAM Vitals: 05/10/20 1932 05/10/20 2329 05/11/20 0355 05/11/20 0738 BP: 108/66 102/69 111/78 122/86 Pulse: 69 67 59 77 Resp: 16 16 16 16 Temp: 35.9 C (96.7 F) 35.9 C (96.6 F) 35.7 C (96.3 F) 36.5 C (97.7 F) TempSrc: Oral Oral Oral Oral SpO2: 98% 98% 97% 98% Weight: General: Alert and oriented x 4 (time, person, place and situation); no apparent distress. Mental Status: Consciousness, attention, concentration: normal, Stays focused and on task while being questioned. Speech/ Language: intact to comprehension, fluency, repetition and naming. Fund of knowledge: is congruent with level of education. Remote and recent memory: normal, can recall recent and distant memories Cranial Nerves: I. Not tested. II. PERRL. FOV full to confrontation. III. IV., . Extraocular movements intact without nystagmus. V. Normal sensation in V1-3 distributions. VII. No facial droop noted. VIII. Hearing intact. IX., X. Palatal elevation and gag response present symmetrically. XI. Normal Strength of sternocleidomastoid and trapezius muscles bilaterally. XII. Tongue in midline. Motor: Tone: normal Bulk: normal STRENGTH Right Left Deltoid 5 4 Biceps 5 4 Triceps 5 4 Wrist extensors 5 4 Interossei 5 4 Hip flexors 5 4 Knee flexors (hamstring) 5 4 Knee extensors (quadriceps) 5 4 Ankle dorsiflexors 5 4 Ankle plantar flexors 5 4 DTR's: Right Left Biceps 2+ 2+ Triceps 2+ 2+ Brachioradialis 2+ 2+ Patella 2+ 2+ Achilles 2+ 2+ Pathologic reflexes and signs: Johnson: absent Babinski: absent Cerebellar: Nystagmus: neg, Tremors: neg, Sensory: LT: intact, temperature: intact, PP: intact, proprioception: intact, Vibration: intact Gait: normal HEENT: pupils equal, round, reactive to light; extraocular movements intact; oropharynx clear; moistmucous membranes Lungs: clear to auscultation bilaterally Cardio: S1, S2 normal Extremities:no cyanosis,clubbing or edema Neck:supple,no carotid bruit,no JVD Abdomen: soft; non-tender; non-distended; normoactive bowel sounds heard MEDICATIONS Current Facility-Administered Medications Medication Dose Route Frequency Last Rate Last Dose albuterol (PROVENTIL) 2.5 mg /3 mL (0.083 %) nebulizer solution 2.5 mg 2.5 mg Inhalation QID Stopped at 05/10/20 1230 ALPRAZolam (XANAX) tablet 0.25 mg 0.25 mg Oral QHSPRN apixaban (ELIQUIS) tablet 5 mg 5 mg Oral BID Stopped at 05/10/201952 ARIPiprazole (ABILIFY) tablet 10 mg 10 mg Oral QHS Stopped at 05/10/201953 ARIPiprazole (ABILIFY) tablet 5 mg 5 mg Oral DAILY atorvastatin (LIPITOR) tablet 80 mg 80 mg Oral QHS Stopped at 05/10/201952 digoxin (LANOXIN) tablet 125 mcg 125 mcg Oral DAILY Fluticasone-Salmeterol (ADVAIR) 100-50 mcg/dose inhalation disk 1 Puff 1 Puff Inhalation Q12H heparin (porcine) injection 5,000 Units 5,000 Units Subcutaneous Q12H 5,000 Units at 05/10/201954 ipratropium (ATROVENT) 0.02 % nebulizer solution 0.5 mg 0.5 mg Inhalation QID Stopped at 05/10/20 123 labetalol (NORMODYNE) injection 10 mg 10 mg Slow IV Push PRN levETIRAcetam (KEPPRA) in NACL (ISO-OS) 1,000 mg/100 mL RTU 1,000 mg IV Infusion Q12H 1,000 mg at 05/11/20 0352 NaCl 0.9% (NS) IV infusion 1,000 mL 1,000 mL IV Infusion CONTINUOUS 75 mL/hr at 05/11/20 0140 1,000 mL at 05/11/20 0140 pantoprazole (PROTONIX) EC tablet 40 mg 40 mg Oral DAILY pregabalin (LYRICA) capsule 25 mg 25 mg Oral QHS Stopped at 05/10/201953 topiramate (TOPAMAX) tablet 100 mg 100 mg Oral QHS Stopped at 05/10/201953 venlafaxine (EFFEXOR) tablet 75 mg 75 mg Oral QHS Stopped at 05/10/201954 venlafaxine XR (EFFEXOR XR) 24 hr capsule 150 mg 150 mg Oral QAM WITH BREAKFAST LABS Recent Results (from the past 24 hour(s)) FASTING LIPID PANEL (02782)(TOTAL CHOLESTEROL, TRIGLYCERIDES, HDL) Collection Time: 05/10/20 11:21 AM Result Value Ref Range CHOL 207 (H) 120 - 200 mg/dL HDL 31 (L) >50 mg/dL HDLC RATIO 6.7 (H) <=4.5 TRIG 178 (H) 30 - 170 mg/dL LDL CHOL 140 <=160 mg/dL VLDL 36 5 - 60 mg/dL CBC with Differential Collection Time: 05/10/20 11:21 AM Result Value Ref Range WBC 7.07 4.30 - 11.10 10*3/L RBC 4.19 3.93 - 5.25 10*6/L HGB 12.1 11.6 - 15.0 g/dL HCT 37.6 35.7 - 45.2 % MCV 89.7 80.6 - 95.5 fL MCH 28.9 25.9 - 32.8 pg MCHC 32.2 31.6 - 35.1 g/dL RDW-SD 42.8 39.0 - 49.9 fL RDW-CV 13.1 12.0 - 15.5 % PLT 222 166 - 358 10*3/L MPV 10.5 9.5 - 12.9 fL NRBC/100 WBC 0.0 0.0 - 10.0 /100 WBCs NRBC x10^3 <0.01 10*3/L GRAN MAT (NEUT) % 50.3 % IMM GRAN % 0.60 % LYMPH % 41.3 % MONO % 6.8 % EOS % 0.4 % BASO % 0.6 % GRAN MAT x10^3(ANC) 3.56 1.88 - 7.09 10*3/uL IMM GRAN x10^3 0.04 0.00 - 0.06 10*3/uL LYMPH x10^3 2.92 1.32 - 3.29 10*3/uL MONO x10^3 0.48 0.33 - 0.92 10*3/uL EOS x10^3 0.03 0.03 - 0.39 10*3/uL BASO x10^3 0.04 0.01 - 0.07 10*3/uL Basic Metabolic Panel (Na, K, Cl, CO2, Glucose, BUN, Creatinine, Ca) Collection Time: 05/10/20 11:21 AM Result Value Ref Range NA 140 135 - 145 mmol/L K 3.9 3.5 - 5.0 mmol/L CL 109 (H) 98 - 108 mmol/L CO2 TOTAL 25 23 - 31 mmol/L AGAP 6 2 - 16 BUN 17 7 - 23 mg/dL GLUCOSE 95 70 - 110 mg/dL CREATININE 0.58 0.50 - 1.04 mg/dL CALCIUM 8.4 (L) 8.6 - 10.6 mg/dL eGFR Calculation (Non-) 116.3 mL/min/1.73m2 eGFR Calculation () 141.0 mL/min/1.73m2 Magensium, Serum Collection Time: 05/10/20 11:21 AM Result Value Ref Range MAGNESIUM 2.2 1.7 - 2.4 mg/dL Prothrombin Time / INR Collection Time: 05/10/20 11:21 AM Result Value Ref Range PROTIME PATIENT 13.8 (H) 10.1 - 12.6 Seconds INR 1.2 N-TERMINAL PRO-BNP Collection Time: 05/10/20 11:21 AM Result Value Ref Range NT-proBNP 213 (H) <=125 pg/mL TROPONIN I Collection Time: 05/10/20 11:21 AM Result Value Ref Range TROPONIN I 0.002 <=0.034 ng/mL COVID-19 (ID NOW RAPID TESTING) Collection Time: 05/10/20 11:21 AM Specimen: NASOPHARYNGEAL SWAB Result Value Ref Range SARS-CoV-2 Rapid ID NOW Not Detected Not Detected TEST, SERUM Collection Time: 05/10/20 11:21 AM Result Value Ref Range PREG SERUM Negative THYROID STIMULATING HORMONE Collection Time: 05/10/20 11:21 AM Result Value Ref Range TSH 8.45 (H) 0.45 - 4.70 mIU/L GLYCOSYLATED HEMOGLOBIN (A1C) Collection Time: 05/10/20 11:21 AM Result Value Ref Range HGB A1C 5.4 4.0 - 6.0 % FREE T4 Collection Time: 05/10/20 11:21 AM Result Value Ref Range FREE T4 0.89 0.78 - 2.20 ng/dL: KEPPRA (LEVETIRACETAM) Collection Time: 05/10/20 11:26 AM Result Value Ref Range KEPPRA 16 12 - 46 ug/mL CBC with Differential Collection Time: 05/11/20 4:07 AM Result Value Ref Range WBC 5.35 4.30 - 11.10 10*3/L RBC 4.36 3.93 - 5.25 10*6/L HGB 12.6 11.6 - 15.0 g/dL HCT 38.4 35.7 - 45.2 % MCV 88.1 80.6 - 95.5 fL MCH 28.9 25.9 - 32.8 pg MCHC 32.8 31.6 - 35.1 g/dL RDW-SD 41.4 39.0 - 49.9 fL RDW-CV 12.8 12.0 - 15.5 % PLT 212 166 - 358 10*3/L MPV 9.8 9.5 - 12.9 fL NRBC/100 WBC 0.0 0.0 - 10.0 /100 WBCs NRBC x10^3 <0.01 10*3/L GRAN MAT (NEUT) % 45.2 % IMM GRAN % 0.70 % LYMPH % 45.0 % MONO % 7.3 % EOS % 0.9 % BASO % 0.9 % GRAN MAT x10^3(ANC) 2.41 1.88 - 7.09 10*3/uL IMM GRAN x10^3 0.04 0.00 - 0.06 10*3/uL LYMPH x10^3 2.41 1.32 - 3.29 10*3/uL MONO x10^3 0.39 0.33 - 0.92 10*3/uL EOS x10^3 0.05 0.03 - 0.39 10*3/uL BASO x10^3 0.05 0.01 - 0.07 10*3/uL Basic Metabolic Panel (Na, K, Cl, CO2, Glucose, BUN, Creatinine, Ca) Collection Time: 05/11/20 4:07 AM Result Value Ref Range NA 137 135 - 145 mmol/L K 4.0 3.5 - 5.0 mmol/L CL 107 98 - 108 mmol/L CO2 TOTAL 27 23 - 31 mmol/L AGAP 3 2 - 16 BUN 12 7 - 23 mg/dL GLUCOSE 89 70 - 110 mg/dL CREATININE 0.55 0.50 - 1.04 mg/dL CALCIUM 8.4 (L) 8.6 - 10.6 mg/dL eGFR Calculation (Non-) 123.7 mL/min/1.73m2 eGFR Calculation () 149.9 mL/min/1.73m2 [employer], Serum Collection Time: 05/11/20 4:07 AM Result Value Ref Range MAGNESIUM 2.2 1.7 - 2.4 mg/dL STROKE LABS HGB A1C (%) Date Value 05/10/2020 5.4 03/22/2014 5.3 LDL CHOL Date Value 05/10/2020 140 mg/dL 03/23/2014 104 MG/DL CHOL Date Value 05/10/2020 207 mg/dL (H) 03/23/2014 171 MG/DL TSH Date Value 05/10/2020 8.45 mIU/L (H) 12/01/2005 2.72 uIU/mL TSH, 3RD GENERATION-Q (mIU/L) Date Value 07/23/2014 4.25 Recent Labs 03/25/20 0538 05/10/20 1121 TROPNI <0.012 0.002 RADIOLOGY Xr Chest 1 Vw Result Date: 05/10/2020 No acute intrathoracic abnormality. ASSESSMENT AND PLAN Jenni Rivera is a 39 year old female with PMHx of the following stroke risk factors: HTN, HLD, Past smoker, Parosxysmal A-fib, who presented with, LSN: 11pm , NIHSS 5. CT head unremarkable. Patientexam remarkable for left sided weakness and dysarthric speech. Differential diagnosis include stroke, vs Johnathan paralysis VS functional Anatomic localization: Rt MCA stroke? Stroke etiology: Cardio-embolic? List of Problems: 1. Left sided weakness 2. Decrease sensation on the left side 3. Left eye blurry/double vision 4. Paroxysmal A-fib 5. Seizures on Keppra - Admission under neurology service - Allergic to Aspirin - Lipitor 80mg daily if LDL>70, will adjust according to fasting lipid panel - <220/110 for ischemic stroke first 24h, then resume home anti-hypertensive medications for goalnormo-tension - Telemetry monitoring - Frequent Neurochecks - Avoid hyperthermia, pain and constipation - POCT for BG and sliding scale insulin - Fall precautions - Consult PT/OT/SULFONATION EQUIPMENT OPERATOR - Supervisor Felting on stroke education, smoking cessation, healthy diet, physical activity, weight loss - EP consulted for Pacemaker interrogation and MRI compatibility - Left eye blurry vision:can consider ophthalmology - Patient claustrophobic, consider - Failed dysphagia, NPO until Speech recs - Duoneb QID for acute bronchitis - Pending EEG Imaging: - MRI brain without contrast - MRA Head and neck - Transthoracic Echo with bubble study - GI Prophylaxis: pantoprazole - DVT Prophylaxis: heparin - Code status: presumed Full [place] Abraham, MS4 I personally examined the patient on 05/11/2020 and have verified the medical student documentation and/or findings, including the history, physical exam, and medical decision making. Additionally, I have personally performed or re- performed the physical exam and medical decision making activities of this patient's evaluation and management service. Guy Carnes MD PGY-2 Neurology Pager number [phone] The case was discussed with Dr. Sahu-Robert Neurology Faculty. Stroke pager: [phone] HOSPITAL COURSE: Patient had seizure the day before presentation to the ED. She usually has seizures once every 6 months. The next day, she noted L sided weakness when she woke up. Was seen in OSH, had CT head done (unremarkable). Transferred here for further workup. Was on Eliquis. Had taken dose at OSH prior to arrival. Patient has multiple allergies (including to iodine and shellfish) so could not do CT perfusionstudies. Patient not aware if pacemaker is MRI compatible (had MRIs in 2018). PT working with patient. Failed bedside dysphagia screen. EP consulted and identified pacemaker. Working with Radiology MRI to obtain MRI for patient. Associated attestation - Mari Jones MD - 05/11/2020 4:31 PM CDTI personally examined the patient and agree with resident note as written . I actively participatedin the decision-making process. Please see the resident's note for additional details. Armando Duggan RN - 05/10/2020 11:05 PM CDTCare Coordinator's note: 05/10/2020 11:05 PM SFA/consult was attempted but was unable to be completed at this time. Patient unable to participate in assessment, lights all off patient appears to be sleeping. LUZ ELENA Epps, RN [employer] [facility] Care Management [email or web address]) F) Brianne Lenz OT - 05/10/2020 11:59 AM CDT05/10/2020 0511 OCCUPATIONAL THERAPY NOTE: Consult received and EPIC reviewed.Per chart review, no Neuro notes completed. OT will hold until documentation available. Alycia Boyd, OTR [phone] signed by Brianne Boyd, OT at 05/10/2020 12:00 PM Mavis Rg PT - 05/10/2020 10:32 AM CDTPT Note: Consult received and EPIC reviewed. Per chart review, no Neuro notes completed. PT will hold until documentation available. 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 Asthma, and JEFF on CPAP, who presented from OSH with CC of Left sided weakness. Patient states that since Monday she has not been feeling well with SOB, 100.3 fever and cough. She went to her doctor on , who gave her 1 time dose of Rocephin and 1 x steroids and told her she had Acute Bronchitis. She continue feeling sick on Monday and went to the ED, at that time the did CXR and Covid test but she was never told the results. Yesterday 9:30 am her saw a seizure, characterize by GTC with loss of bowel control. She was confuse for 1 hour after. She went to bed 11pm and woke up 4am. She was unable to stand and walk because was unable to move her Left arm and leg and she was leaning to the left upon standing and because of that she went to the hospital. Patientendorses similar episode like this before. She states that she has previous strokes. Before going tobed last patient also endorsed Patient endorses headache, nausea, 3 x non-bloody vomits yesterday. She took Tylenol for headache with improvement. She complained of blurry vision, sometimes double only on her left eye, closer worse and improves upon closing the left eye only. Patient with hx of seizure since 19y/o, takes Keppra 1g BID. She is compliant with medication. Episode preceded by abdominal pain and she has GTC seizures or LE shaking. After the episodes she is confuse. She endorses 1 episode every 6 months. Denies toxic habits. Antiplatelets: No Anticoagulations: Yes Eliquis 5mg BID Tobacco abuse: No Alcohol abuse: No Drug abuse: No Previous stroke: Yes? Body mass index is 25.04 kg/m. STROKE DOCUMENTATION Stroke Activation - Date: (not recorded) Stroke Activation - Time: (not recorded) Neurology arrival at bedside - Date: (not recorded) Neurology arrival at bedside - Time: (not recorded) CT-Head without contrast read by Neurology: (not recorded) Last seen normal: Last known well - Date: 05/09/20 Last known well - Time: 2300 Wake up stroke: Yes NIH STROKE SCALE NIHSS TOTAL: 5 NIHSS Interval: Admission LOC: 0 Alert: Keenly Responsive LOC QUESTIONS: 0 Answers Both Questions Correctly LOC COMMANDS: 0 Performs Both Tasks Correctly BEST GAZE: 0 Normal VISUAL: 0 No Visual Loss FACIAL PALSY: 0 Normal MOTOR ARM-LEFT: 1 Drift MOTOR ARM-RIGHT: 0 No Drift MOTOR LEG-LEFT: 1 Drift MOTOR LEG-RIGHT: 0 No Drift LIMB ATAXIA: 0 Absent SENSORY: 2 Epriro-[id number] Sensory Loss BEST LANGUAGE: 0 No Aphasia DYSARTHRIA: 1 [id number] Dysarthria EXTINCTION AND INATTENTION (FORMERLY NEGLECT): 0 No Abnormalty Dysphagia Screen: Dysphagia Screen Step 1: Pass (none of the above) Dysphagia Screen Step 2: Pass (none of the above) Dysphagia Screen Step 3: Pass (none of the above) Dysphagia Screen Step 4: Pass (none of the above) Dysphagia Screen Step 5: Cough during or up to 1 minute after the swallow IV Alteplase: Was Alteplase/IV thrombolytic therapy given?: No Reason no IV Alteplase/IV thrombolytic therapy initiated: Arrival > 4.5 hours from symptom onset Did patient and/or family agree to IV Alteplase? No If IV Alteplase therapy was indicated and given as a standard of care was the patient/family informed of benefits of treatment and risk such as hemorrhage and/or angioedema?: (not recorded) Was there a delay greater than 45 minutes: (not recorded) Reason (s): (not recorded) ICH/SAH ICH/SAH: No Endovascular Intervention: Was Endovascular Intervention Performed?: No Reason patient is not a candidate for endovascular intervention: NIH less than or equal to 6;Allergyto IV contrast PRE- ADMISSION MODIFIED BARB SCORE 2 - Slight disability; unable to carry out all previous activities; but able to look after own affairs without assistance PAST MEDICAL HISTORY Past Medical History: Diagnosis [...] sinus syndrome TIA (transient ischemic attack) Transaminitis Vitamin D deficiency PAST SURGICAL HISTORY Past Surgical History: Procedure Laterality Date CHOLECYSTECTOMY COLONOSCOPY N/A 08/02/2018 Surgeon: Natalya Davis MD; Location: Endoscopy ([facility]) OR Location ESOPHAGOGASTRODUODENOSCOPY N/A 08/02/2018 Surgeon: Natalya Davis MD; Location: Endoscopy ([facility]) OR Location HB CONFIRM LOOP RECORDER Removed 10/2017 HYSTERECTOMY 07/2012 PACEMAKERS INSERTION 10/2017 [facility]; Dr Imtiaz Soto, [facility], inserted twice FAMILY HISTORY Family History Problem Relation Age of Onset [...] resource strain: Not hard at all Food insecurity Worry: Never true Inability: Never true Transportation needs Medical: No Non-medical: No Tobacco Use Smoking status: Former Smoker Packs/day: 0.30 Years: 2.00 Pack years: 0.60 Quit date: 05/09/2003 Years since quittin.0 Smokeless tobacco: Never Used Tobacco comment: quit 16 years ago Substance and Sexual Activity Alcohol use: No Drug use: Not Currently Comment: used cocaine x 2 in 2000 Sexual activity: Not on file Lifestyle Physical activity Days per week: Not on file Minutes per session: Not on file Stress: Not on file Relationships Social connections Talks on phone: Not on file Gets together: Not on file Attends mu-ism service: Not on file Active member of club or organization: Not on file Attends meetings of clubs or organizations: Not on file Relationship status: Not on file Intimate partner violence Fear of current or ex partner: Not on file Emotionally abused: Not on file Physically abused: Not on file Forced sexual activity: Not on file Other Topics Concern Not on file Social History Narrative Not on file Reviewed patient's family, surgical and social hx. HOME MEDICATIONS Medications Prior to Admission Medication Sig Dispense Refill Last Dose digoxin 125 mcg (0.125 mg) tablet Take 1 tablet by mouth daily. 30 tablet 3 apixaban (ELIQUIS) 5 mg tablet Take 1 tablet by mouth 2 (two) times daily. Indications: Recurrent DVT 180 tablet 3 carvediloL 25 mg tablet Take 1 tablet by mouth 2 (two) times daily with meals. 180 tablet 3 venlafaxine 75 mg tablet Take 75 mg by mouth at bedtime. pantoprazole 40 mg EC tablet Take 1 tablet by mouth daily. 30 tablet 0 pregabalin (LYRICA) 25 mg capsule Take 25 mg by mouth at bedtime. levETIRAcetam 500 mg tablet Take 2 tablets by mouth 2 (two) times daily. 120 tablet 6 atorvastatin 10 mg tablet Take 10 mg by mouth daily. 1 fluticasone-vilanterol (BREO ELLIPTA) 100-25 mcg/dose DsDv Inhale 1 Puff daily. ABILIFY 10 mg tablet TK 1 T PO QHS 1 ABILIFY 5 mg tablet TK 1 T PO D, in am 1 busPIRone 15 mg tablet TK 1 T PO BID 1 topiramate 100 mg tablet TK 1 T PO HS 1 venlafaxine XR 150 mg 24 hr capsule daily with breakfast. 1 DALIRESP 500 mcg Tab daily. albuterol (ACCUNEB) 1.25 mg/3 mL nebulizer solution Use 1 Ampule as directed every 6 (six) hoursas needed. ALBUTEROL SULFATE (PROAIR HFA INHALE) Inhale. loratadine (CLARITIN) 10 mg tablet as needed. [DISCONTINUED] ivabradine (CORLANOR) 5 mg Tab Take 5 mg by mouth daily. 30 tablet 2 blood sugar diagnostic (TRUETEST TEST STRIPS) strip Use as directed. R 73.03. Check once daily 100 Strip 3 Taking lancets (TRUEPLUS LANCETS) 33 gauge Misc Use as directed. R 73.03, Check once daily 100 Each 3 Taking ALPRAZolam (XANAX) 0.25 mg tablet Take 0.25 mg by mouth at bedtime as needed. tiotropium 18 mcg inhalation Inhale 18 mcg daily. benztropine 1 mg tablet TK 1 T PO BID 1 HOSPITAL MEDICATIONS Current Facility-Administered Medications Medication Dose Route Frequency Last Rate Last Dose albuterol (PROVENTIL) 2.5 mg /3 mL (0.083 %) nebulizer solution 2.5 mg 2.5 mg Inhalation QID ALPRAZolam (XANAX) tablet 0.25 mg 0.25 mg Oral QHSPRN apixaban (ELIQUIS) tablet 5 mg 5 mg Oral BID ARIPiprazole (ABILIFY) tablet 10 mg 10 mg Oral QHS [START ON 05/11/2020] ARIPiprazole (ABILIFY) tablet 5 mg 5 mg Oral DAILY atorvastatin (LIPITOR) tablet 20 mg 20 mg Oral QHS [START ON 05/11/2020] digoxin (LANOXIN) tablet 125 mcg 125 mcg Oral DAILY Fluticasone-Salmeterol (ADVAIR) 100-50 mcg/dose inhalation disk 1 Puff 1 Puff Inhalation Q12H heparin (porcine) injection 5,000 Units 5,000 Units Subcutaneous Q12H ipratropium (ATROVENT) 0.02 % nebulizer solution 0.5 mg 0.5 mg Inhalation QID labetalol (NORMODYNE) injection 10 mg 10 mg Slow IV Push PRN levETIRAcetam (KEPPRA) in NACL (ISO-OS) 1,000 mg/100 mL RTU 1,000 mg IV Infusion Q12H NaCl 0.9% (NS) IV infusion 1,000 mL 1,000 mL IV Infusion CONTINUOUS 75 mL/hr at 05/10/20 1118 1,000 mL at 05/10/20 1118 [START ON 05/11/2020] pantoprazole (PROTONIX) EC tablet 40 mg 40 mg Oral DAILY pregabalin (LYRICA) capsule 25 mg 25 mg Oral QHS topiramate (TOPAMAX) tablet 100 mg 100 mg Oral QHS venlafaxine (EFFEXOR) tablet 75 mg 75 mg Oral QHS [START ON 05/11/2020] venlafaxine XR (EFFEXOR XR) 24 hr capsule 150 mg 150 mg Oral QAM WITH BREAKFAST ALLERGY Allergies Allergen Reactions Aluminum Aspirin Anaphylaxis Asa [...] Swelling Gabapentin Rash Iodine Rash Ivabradine Rash 03/2020: reports passing out after taking one dose of that medicine Latex Rash "blisters" Penicillins Anaphylaxis Seroquel [Quetiapine Fumarate] Rash Tramadol Unknown - See comments Rash Adhesive Tape-Silicones Rash Can use papertape. Cefixime Rash Sulfa (Sulfonamide Antibiotics) Rash REVIEW OF SYSTEMS General: (-) fever, (-) chills, (+) weight change, (-) dizziness, (-) fatigue, (-) change in appetite Skin: (-) rash, (-) lesion HEENT: (+) headache, (-) change in hearing, (-) change in vision, (-) nasal discharge, (-) sore throat Neck: (-) pain, (-) difficulty swallowing, (-) mass Heme: (-) bleeding disorder Resp: (+) cough, (-) shortness of breath, (-) dyspnea on exertion Cardio: (+) chest pain, (+) palpitations, (-) syncope GI: (-) abdominal pain, (+) nausea, (+) vomiting, (-) diarrhea, (-) constipation, (-) melena, (-) hematochezia, (-) hematemesis : (-) dysuria, (-) hematuria, (-) increased frequency, (-) difficulty urinating, (-) difficulty initiating Endo: (-) heat intolerance, (-) diabetes, (-) cold intolerance, (-) polyuria, (- ) polydipsia, (-) renal insufficiency, (-) thyroid disease Neuro: (+) numbness, (-) tingling, (+) weakness Back: (-) pain, (-) spasms OTF: (-) muscle pain, (-) joint pain, (-) claudication Psych: (-) anxiety, (-) depression, (-) psychiatric disorder PHYSICAL EXAM Vitals: 05/10/20 1000 05/10/20 1109 BP: 118/75 Pulse: 69 Resp: 18 TempSrc: Oral SpO2: 98% Weight: 56.2 kg (124 lb) General: Alert and oriented x 4 (time, person, place and situation); no apparent distress. Mental Status: Consciousness, attention, concentration: normal, Stays focused and on task while being questioned. Speech/ Language: intact to comprehension, fluency, repetition and naming. Fund of knowledge: is congruent with level of education. Remote and recent memory: normal, can recall recent and distant memories Cranial Nerves: I. Not tested. II. PERRL. FOV full to confrontation. States sometimes seeing double on the left eye on confrontation. III. IV., . Extraocular movements intact without nystagmus. V. Decrease sensation V1-V3 . VII. No facial droop noted. VIII. Hearing intact. IX., X. Palatal elevation present symmetrically. XI. Normal Strength of sternocleidomastoid and trapezius muscles bilaterally. XII. Tongue in midline. Motor: Tone: normal Bulk: normal STRENGTH Right Left Deltoid 5 5 Biceps 5 4+ Triceps 5 4+ Wrist extensors 5 4+ Interossei 5 4+ Hip flexors 5 4+ Knee flexors (hamstring) 5 5 Knee extensors (quadriceps) 5 5 Ankle dorsiflexors 5 5 Ankle plantar flexors 5 5 DTR's: Right Left Biceps 2+ 2+ Triceps 2+ 2+ Brachioradialis 2+ 2+ Patella 3+ 3+ Achilles 2+ 2+ Pathologic reflexes and signs: Johnson: absent Babinski: present on the right Cerebellar: Nystagmus: neg, FTN: nl, slow on the left, HTS: slow on the left, Tremors: neg, Sensory: No sensation of LT, and PP Left LE Gait: Deferred HEENT: pupils equal, round, reactive to light; extraocular movements intact; oropharynx clear; moistmucous membranes Lungs: clear to auscultation bilaterally Cardio: S1, S2 normal Extremities:no cyanosis,clubbing or edema Abdomen: obese LABS Recent Results (from the past 24 hour(s)) FASTING LIPID PANEL (57247)(TOTAL CHOLESTEROL, TRIGLYCERIDES, HDL) Collection Time: 05/10/20 11:21 AM Result Value Ref Range CHOL 207 (H) 120 - 200 mg/dL HDL 31 (L) >50 mg/dL HDLC RATIO 6.7 (H) <=4.5 TRIG 178 (H) 30 - 170 mg/dL LDL CHOL 140 <=160 mg/dL VLDL 36 5 - 60 mg/dL CBC with Differential Collection Time: 05/10/20 11:21 AM Result Value Ref Range WBC 7.07 4.30 - 11.10 10*3/L RBC 4.19 3.93 - 5.25 10*6/L HGB 12.1 11.6 - 15.0 g/dL HCT 37.6 35.7 - 45.2 % MCV 89.7 80.6 - 95.5 fL MCH 28.9 25.9 - 32.8 pg MCHC 32.2 31.6 - 35.1 g/dL RDW-SD 42.8 39.0 - 49.9 fL RDW-CV 13.1 12.0 - 15.5 % PLT 222 166 - 358 10*3/L MPV 10.5 9.5 - 12.9 fL NRBC/100 WBC 0.0 0.0 - 10.0 /100 WBCs NRBC x10^3 <0.01 10*3/L GRAN MAT (NEUT) % 50.3 % IMM GRAN % 0.60 % LYMPH % 41.3 % MONO % 6.8 % EOS % 0.4 % BASO % 0.6 % GRAN MAT x10^3(ANC) 3.56 1.88 - 7.09 10*3/uL IMM GRAN x10^3 0.04 0.00 - 0.06 10*3/uL LYMPH x10^3 2.92 1.32 - 3.29 10*3/uL MONO x10^3 0.48 0.33 - 0.92 10*3/uL EOS x10^3 0.03 0.03 - 0.39 10*3/uL BASO x10^3 0.04 0.01 - 0.07 10*3/uL Basic Metabolic Panel (Na, K, Cl, CO2, Glucose, BUN, Creatinine, Ca) Collection Time: 05/10/20 11:21 AM Result Value Ref Range NA 140 135 - 145 mmol/L K 3.9 3.5 - 5.0 mmol/L CL 109 (H) 98 - 108 mmol/L CO2 TOTAL 25 23 - 31 mmol/L AGAP 6 2 - 16 BUN 17 7 - 23 mg/dL GLUCOSE 95 70 - 110 mg/dL CREATININE 0.58 0.50 - 1.04 mg/dL CALCIUM 8.4 (L) 8.6 - 10.6 mg/dL eGFR Calculation (Non-) 116.3 mL/min/1.73m2 eGFR Calculation () 141.0 mL/min/1.73m2 Magensium, Serum Collection Time: 05/10/20 11:21 AM Result Value Ref Range MAGNESIUM 2.2 1.7 - 2.4 mg/dL Prothrombin Time / INR Collection Time: 05/10/20 11:21 AM Result Value Ref Range PROTIME PATIENT 13.8 (H) 10.1 - 12.6 Seconds INR 1.2 N-TERMINAL PRO-BNP Collection Time: 05/10/20 11:21 AM Result Value Ref Range NT-proBNP 213 (H) <=125 pg/mL TROPONIN I Collection Time: 05/10/20 11:21 AM Result Value Ref Range TROPONIN I 0.002 <=0.034 ng/mL COVID-19 (ID NOW RAPID TESTING) Collection Time: 05/10/20 11:21 AM Specimen: NASOPHARYNGEAL SWAB Result Value Ref Range SARS-CoV-2 Rapid ID NOW Not Detected Not Detected TEST, SERUM Collection Time: 05/10/20 11:21 AM Result Value Ref Range PREG SERUM Negative THYROID STIMULATING HORMONE Collection Time: 05/10/20 11:21 AM Result Value Ref Range TSH 8.45 (H) 0.45 - 4.70 mIU/L KEPPRA (LEVETIRACETAM) Collection Time: 05/10/20 11:26 AM Result Value Ref Range KEPPRA 16 12 - 46 ug/mL STROKE LABS HGB A1C (%) Date Value 06/15/2019 5.7 03/22/2014 5.3 LDL CHOL Date Value 05/10/2020 140 mg/dL 03/23/2014 104 MG/DL CHOL Date Value 05/10/2020 207 mg/dL (H) 03/23/2014 171 MG/DL TSH Date Value 05/10/2020 8.45 mIU/L (H) 12/01/2005 2.72 uIU/mL TSH, 3RD GENERATION-Q (mIU/L) Date Value 07/23/2014 4.25 Recent Labs 03/25/20 0538 05/10/20 1121 TROPNI <0.012 0.002 RADIOLOGY No final results containing an impression from the past 48 hours were found. MRI 2018 Care everywhere: IMPRESSION: No evidence of infarct, hemorrhage, or hydrocephalus. Acute on chronic pansinusitis. ASSESSMENT AND PLAN Jenni Rivera is a 39 year old female with PMHx of the following stroke risk factors: HTN, HLD, Past smoker, Parosxysmal A-fib, who presented with, LSN: 11pm , NIHSS 5. CT head unremarkable. Patientexam remarkable for left sided weakness and dysarthric speech. Differential diagnosis include stroke, vs Johnathan paralysis vs hemiplegic migraine?. Anatomic localization: Rt MCA stroke? Stroke etiology: Cardio-embolic? List of Problems: 1. Left sided weakness 2. Decrease sensation on the left side 3. Left eye blurry/double vision 4. Paroxysmal A-fib 5. Seizures on Keppra - Admission under neurology service - Allergic to Aspirin - Lipitor 80mg daily if LDL>70, will adjust according to fasting lipid panel - <220/110 for ischemic stroke first 24h, then resume home anti-hypertensive medications for goalnormo-tension - Telemetry monitoring - Frequent Neurochecks - Avoid hyperthermia, pain and constipation - POCT for BG and sliding scale insulin - Fall precautions - Consult PT/OT/ Speech pathology/Primary swallowing screen - Supervisor Felting on stroke education, smoking cessation, healthy diet, physical activity, weight loss - EP consulted for Pacemaker interrogation and MRI compatibility - Left eye blurry vision:can consider ophthalmology - Patient claustrophobic, consider - Failed dysphagia, NPO until Speech recs - Duoneb QID for acute bronchitis Imaging: - MRI brain without contrast - MRA Head and neck - Transthoracic Echo with bubble study Labs: - Check fasting Lipid panel, HgA1C, TSH. - Check CBC, BMP, Pt, PTT, cardiac enzymes x 1, EKG - GI Prophylaxis: pantoprazole - DVT Prophylaxis: heparin - Code status: Full code Discussed with Dr. Padilla , Neurology Faculty Stroke pager: [phone] Garret Wisdom MD PGY-2 Neurology Pager: Doctor #: [phone] Associated attestation - Amado Padilla MD - 05/12/2020 10:28 AM CDTI saw and evaluated the patient on 05/10/20 and agree with the resident's note as written by Dr. Aureliano Wisdom. I actively participated in the decision-making process. Please see the resident's note for additional details. Amado Padilla, MDdocumented in this encounter Consult Notes iWn Garrison MD - 05/12/2020 3:30 PM CDTAssociated Order(s): CONSULT PSYCHIATRY DEPARTMENT OF PSYCHIATRY AND BEHAVIORAL SCIENCE Inpatient Psych/Consult Evaluation [id number] Jenni Rivera [address] [place] [id number] 05/12/2020 REASON FOR CONSULT: "Reason for consult - please give recommendation or opinion on: Jenni Rivera is a 39 year old female with PMHx of seizures and questionable stroke was admitted for stroke like symptoms, left sided arm and leg weakness. Exam was significant for distractible symptoms. MRI negative. Please evaluate for functional disorder Thanks" REQUESTING PHYSICIAN/ CONTACT INFORMATION: Drs. Carnes and Robert CHIEF COMPLAINT: "I'm fine." HISTORY OF PRESENT ILLNESS: Jenni Rivera is a 39 year old woman with a history of depression admitted for workup of possible stroke, with psychiatry consulted for review of meds and evaluation of possible comorbidities. The patient explains she has been diagnosed with depression, but has no mood concerns nor anxiety oncurrent medication regimen, and she is being managed at [facility]. She denies psychosis or safety concerns. Concerning her reason for admission, she explains her left arm no longer feels numbbut now feels week; otherwise, she feels like her normal self. She plans to follow neurology's recommendations for outpatient EEG and explains her understanding that recent symptoms do not seem to have a clear neurologic cause based on exams and workup. She is open to talk therapy. PAST PSYCHIATRIC HISTORY: Diagnoses: depression, anxiety, intellectual disability Outpatient: [facility] Current Psychiatric Meds: kei judge PSYCHIATRIC REVIEW OF SYSTEMS: Depression: DENIES Shae: DENIES Anxiety/Panic: DENIES A/V Hallucinations: DENIES Delusions: DENIES Suicidal Ideation: DENIES Homicidal Ideation: DENIES SUBSTANCE USE: Denies all substance use. PAST MEDICAL HISTORY: Past Medical History: Diagnosis Date A-fib Anemia [...] sinus syndrome TIA (transient ischemic attack) Transaminitis Vitamin D deficiency Past Surgical History: Procedure Laterality Date CHOLECYSTECTOMY COLONOSCOPY N/A 08/02/2018 Surgeon: Natalya Davis MD; Location: Endoscopy ([facility]) OR Location ESOPHAGOGASTRODUODENOSCOPY N/A 08/02/2018 Surgeon: Natalya Davis MD; Location: Endoscopy ([facility]) OR Location HB CONFIRM LOOP RECORDER Removed 10/2017 HYSTERECTOMY 07/2012 PACEMAKERS INSERTION 10/2017 [facility]; Dr Imtiaz Soto, [facility], inserted twice MEDICATIONS: Current Facility-Administered Medications Medication Dose Route Frequency Last Rate Last Dose dextromethorphan-guaifenesin (ROBITUSSIN DM) 10-100 mg/5 mL solution 5 mL 5 mL Oral Q6HPRN 5 mL at 05/11/202033 ondansetron (ZOFRAN (PF)) injection 4 mg 4 mg Slow IV Push Q6HPRN 4 mg at 05/11/20 1653 Saline Bubble Study 6 mL Injection SEE-INSTRUCTIONS 6 mL at 05/11/20 1252 Saline Bubble Study 6 mL Injection SEE-INSTRUCTIONS 6 mL at 05/11/20 1250 albuterol (PROVENTIL) 2.5 mg /3 mL (0.083 %) nebulizer solution 2.5 mg 2.5 mg Inhalation QID 2.5 mg at 05/11/202027 ALPRAZolam (XANAX) tablet 0.25 mg 0.25 mg Oral QHSPRN apixaban (ELIQUIS) tablet 5 mg 5 mg Oral BID 5 mg at 05/12/20 0953 ARIPiprazole (ABILIFY) tablet 10 mg 10 mg Oral QHS 10 mg at 05/11/202028 ARIPiprazole (ABILIFY) tablet 5 mg 5 mg Oral DAILY 5 mg at 05/12/20 0956 atorvastatin (LIPITOR) tablet 80 mg 80 mg Oral QHS 80 mg at 05/11/202026 digoxin (LANOXIN) tablet 125 mcg 125 mcg Oral DAILY Fluticasone-Salmeterol (ADVAIR) 100-50 mcg/dose inhalation disk 1 Puff 1 Puff Inhalation Q12H1 Puff at 05/12/20 09 ipratropium (ATROVENT) 0.02 % nebulizer solution 0.5 mg 0.5 mg Inhalation QID 0.5 mg at 05/11/202027 labetalol (NORMODYNE) injection 10 mg 10 mg Slow IV Push PRN levETIRAcetam (KEPPRA) in NACL (ISO-OS) 1,000 mg/100 mL RTU 1,000 mg IV Infusion Q12H 1,000 mg at 05/12/20 0349 NaCl 0.9% (NS) IV infusion 1,000 mL 1,000 mL IV Infusion CONTINUOUS 75 mL/hr at 05/11/20 0140 1,000 mL at 05/11/20 0140 pantoprazole (PROTONIX) EC tablet 40 mg 40 mg Oral DAILY 40 mg at 05/12/20 0954 pregabalin (LYRICA) capsule 25 mg 25 mg Oral QHS 25 mg at 05/11/202026 topiramate (TOPAMAX) tablet 100 mg 100 mg Oral QHS 100 mg at 05/11/202026 venlafaxine (EFFEXOR) tablet 75 mg 75 mg Oral QHS 75 mg at 05/11/202027 venlafaxine XR (EFFEXOR XR) 24 hr capsule 150 mg 150 mg Oral QAM WITH BREAKFAST 150 mg at 05/12/20 0956 SIDE EFFECTS/ALLERGIES: Allergies Allergen Reactions Aluminum Aspirin Anaphylaxis Asa [...] Swelling Gabapentin Rash Iodine Rash Ivabradine Rash 03/2020: reports passing out after taking one dose of that medicine Latex Rash "blisters" Penicillins Anaphylaxis Seroquel [Quetiapine Fumarate] Rash Tramadol Unknown - See comments Rash Adhesive Tape-Silicones Rash Can use papertape. Cefixime Rash Sulfa (Sulfonamide Antibiotics) Rash SOCIAL HISTORY: Lives with Pap[place] with , son, and aunt. 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 [place]. FAMILY PSYCHIATRIC HISTORY: Notes various family members are "slow" FAMILY MEDICAL HISTORY: Family History Problem Relation Age of Onset [...] Son Bipolar disorder Son Genetic Son Autism VITAL SIGNS: BP 123/83 | Pulse 77 | Temp 36 C (96.8 F) (Oral) | Resp 18 | Wt 56.2 kg (124 lb) | SpO2 93% | BMI 25.04 kg/m LAB DATA CBC BMP PT/INR WBC x10^3 (/uL) Date Value 03/24/2014 5.6 WBC (10*3/L) Date Value 05/11/2020 5.35 NA Date Value 05/11/2020 137 mmol/L 03/24/2014 136 MMOL/L SODIUM-Q (mmol/L) Date Value 07/23/2014 145 No results found for: PT RBC x10^6 (/uL) Date Value 03/24/2014 4.51 RBC (10*6/L) Date Value 05/11/2020 4.36 K Date Value 05/11/2020 4.0 mmol/L 03/24/2014 4.2 MMOL/L POTASSIUM-Q (mmol/L) Date Value 07/23/2014 4.9 PT INR (no units) Date Value 03/22/2014 1.0 INR (no units) Date Value 05/10/2020 1.2 PLT x10^3 (/uL) Date Value 03/24/2014 220 PLT (10*3/L) Date Value 05/11/2020 212 CALCIUM Date Value 05/11/2020 8.4 mg/dL (L) 03/24/2014 9.3 MG/DL CALCIUM-Q (mg/dL) Date Value 07/23/2014 10.3 (H) HGB Date Value 05/11/2020 12.6 g/dL 03/24/2014 13.0 G/DL CL Date Value 05/11/2020 107 mmol/L 03/24/2014 98 MMOL/L CHLORIDE-Q (mmol/L) Date Value 07/23/2014 105 aPTT HCT (%) Date Value 05/11/2020 38.4 03/24/2014 38.8 BUN Date Value 05/11/2020 12 mg/dL 03/24/2014 20 MG/DL UREA NITROGEN (BUN)-Q (mg/dL) Date Value 07/23/2014 12 APTT (SEC) Date Value 03/22/2014 33 APTT Patient (Seconds) Date Value 11/06/2019 29 CREATININE Date Value 05/11/2020 0.55 mg/dL 03/24/2014 0.71 MG/DL CREATININE-Q (mg/dL) Date Value 07/23/2014 0.70 RADIOLOGY/IMAGING Xr Chest 1 Vw Result Date: 05/10/2020 No acute intrathoracic abnormality. Mr Angiogram Head Wo Contrast Result Date: 05/12/2020 Unremarkable MRI brain. No evidence of acute ischemia. Unremarkable MRA head. Unremarkable MRA neck. Mr Angiogram Neck W Wo Contrast Result Date: 05/12/2020 Unremarkable MRI brain. No evidence of acute ischemia. Unremarkable MRA head. Unremarkable MRA neck. Mr Brain Wo Contrast Result Date: 05/12/2020 Unremarkable MRI brain. No evidence of acute ischemia. Unremarkable MRA head. Unremarkable MRA neck. MENTAL STATUS EXAM: The patient appears her stated age, lying in bed in hospital gown wearing eyeglasses in no apparent distress, eyes mostly to ceiling when speaking. Speech is fluent with appropriate tone, tempo, and volume. Good grooming/hygiene. No psychomotor abnormalities. Euthymic mood with constricted, congruent affect. Alert, attentive, 3/3 immediate recall and 1/3 delayed recall (declines to attempt further recall with prompting). Able to spell CAT forward and backward on concentration. Fund of knowledge: unable to name a city outside of [place], able to name five cities within [place]. Estimated below average intelligence based on diagnostic history and complexity of concepts used. Thought processes are logical, linear, and coherent. Content: denies suicidal/homicidal thoughts, denies hallucinations/delusions. Good insight (conveys understanding of recent symptoms and results of neuro workup), good judgment (help-seeking, future-oriented, cooperative with care). ASSESSMENT/FORMULATION: Jenni Rivera is a 39 year old woman with intellectual disability and history of depression controlled on current medications with established follow-up. Ongoing neurological workup to rule out organic causes of recent symptoms, so counseling resources may be provided to the patient to pursue alongside psychotropics and outpatient neurology. DIAGNOSES/RECS: 1) major depressive disorder, in remission - continue current meds and established follow up with [facility] - please provide counseling resources listed below 2) intellectual disability - no acute intervention recommended 3) functional neurological symptom disorder - please provide the following counselor resources in the patient's area: [facility], [facility] [address] [facility], [place] [address] [facility] [address] [facility] [address], [place] [address] [facility] [address] [address], [place] [address] [facility] [address] [place] [address], [place] [address] Abel Welch Jr, PhD [address] [facility] [address], [place] [address] - Psychiatry will sign off at this time. No more psychiatric intervention is needed at this moment, Please contact the psychiatry consult pager: [phone] with any questions. I am the attending, and I personally examined this patient. Win Garrison MD Karla Mohamud SLP - 05/11/2020 1:30 PM CDTAssociated Order(s): CONSULT SPEECH Speech-Language Pathology Clinical Swallow Evaluation 05/11/2020 Jenni Rivera : 1980 Age: [age] year old Sex: female Referring Physician: Aureliano Wisdom MD Date of Referral: 05/10/2020 Reason for Referral: stroke activation (dysphagia, speech-language/cognitive-linguistic) Date of Admission/Onset: 05/10/2020 Time IN/OUT: 7621-6948 SUBJECTIVE: Patient awake/alert, seated upright in chair, and agreeable to participate. She reports that she "failed her test" with nursing because she coughed but states that she does not feel this was related toher swallowing as she has had a sore throat and has been coughing for the past couple of weeks. She denies any really noticeable changes to speech-language/cognition. OBJECTIVE: is being seen for a clinical swallow evaluation. Jenni Rivera is a 39 year old female with PMH significant for HTN, HLD, Paroxysmal A-fib (on Eliquis), Seizure after trauma (dx 19 y/o), DVT left leg, Sick sinus syndrome s/p pacemaker 2018?, past smoker, Stroke?, Asthma, and JEFF on CPAP who presented from OSH with complaint of left-sided weakness. Differential diagnosis include strokevs Johnathan paralysis vs hemiplegic migraine. NIHSS 5. MRI has been ordered. Of note per primary team note, "she went to the doctor on the prior to admission who gave her 1 time dose of Rocephin and 2x steroids and told her she had acute bronchitis". Pertinent Imaging: Xr Chest 1 Vw Result Date: 05/10/2020 No acute intrathoracic abnormality. Previous SULFONATION EQUIPMENT OPERATOR Services/Swallow History: Patient seen by this service on 03/22/2014 after admission tofacility via stroke activation. At that time, patient found to have functional speech and normal swallowing; SULFONATION EQUIPMENT OPERATOR rec'd regular-textured diet with thin liquids and signed off. Patient seen again by thisservice on 08/04/2018 after admission to facility via stroke activation. At the time, patient appeared to present with safe, functional swallowing from an oropharyngeal standpoint. SULFONATION EQUIPMENT OPERATOR rec'd regular-textured diet with thin liquids but also noted possibility for esophageal dysphagia and benefit from further work-up with referral to GI and/or full barium swallow. Past Medical History: Diagnosis Date A-fib Anemia [...] sinus syndrome TIA (transient ischemic attack) Transaminitis Vitamin D deficiency Past Surgical History: Procedure Laterality Date CHOLECYSTECTOMY COLONOSCOPY N/A 08/02/2018 Surgeon: Natalya Davis MD; Location: Endoscopy ([facility]) OR Location ESOPHAGOGASTRODUODENOSCOPY N/A 08/02/2018 Surgeon: Natalya Davis MD; Location: Endoscopy ([facility]) OR Location HB CONFIRM LOOP RECORDER Removed 10/2017 HYSTERECTOMY 07/2012 PACEMAKERS INSERTION 10/2017 [facility]; Dr Imtiaz Soto, [facility], inserted twice General Behavior: Alert and Cooperative Hearing: Within Functional Limits for speech Oral Mechanism: Structure: natural dentition; some missing teeth, poor condition and moist oral mucosa Function: Unremarkable - no facial droop/weakness, no subjective trismus, symmetric labial spread and pucker, lingual protrusion midline with equal lateralization, symmetrical palatal retraction, no dysphonia, no dysarthria, no apraxia Respiratory Status: room air Orientation/Cognition: - Patient oriented to: person, place, time and situation - Response type: verbal - If verbal, describe speech: clear - Follows 1-step commands: Yes CLINICAL SWALLOW EVALUATION Current Diet Texture/Means of Nutrition: NPO; failed RN dysphagia screen on Step 5 Swallows on command: Yes Handles Secretions: Yes Volitional Cough: Yes Spontaneous Cough: No PO trials were administered by patient. Patient was provided with multiple bites/sips of thin liquids, puree and chewable solid consistencies with the following observations: Oral Stage: Anterior leakage of bolus (left or right) not observed Pocketing of bolus (left or right) not observed Subjectively Prolonged oral phase not observed Oral residue (left/right/diffuse) not observed Pharyngeal Stage: Subjectively reduced laryngeal elevation not observed Coughing or throat clearing not observed Change in voice quality not observed Multiple swallows subjectively not observed Respiratory sufficiency and coordination: WFL - no increased work of breathing and/or oxygen sats and respiratory rate remained stable Report of globus sensation: No 3 oz water challenge: passed Patient/Family/Staff education: Discussed findings of evaluation, recommendations and SULFONATION EQUIPMENT OPERATOR plan of care. Patient/Family goal: safe po intake ASSESSMENT/IMPRESSIONS: Jenni Rivera appears to present with safe, functional swallowing c/b suspected timely swallow initiation with subjectively adequate laryngeal elevation and no overt s/sx of aspiration observed (Note: aspiration cannot be confirmed nor ruled out without instrumental study/imaging). Vocal quality romy ined clear in multiple PO trials. Patient appears to be safe for initiation of PO diet with swallow precautions as below though she is at some risk for aspiration given previously failed dysphagia screen and concerns for acute stroke. If additional concerns for aspiration or for aspiration-related infe ction were to arise, patient would benefit from completion of instrumental swallow study (i.e MBS) at that time to r/o aspiration and further assess the safety of her swallow. Exam by neurology team upon admission significant for dysarthria (see NIHSS in H&P note) however at the time of today's session, patient denies any noticeable changes in speech-language/cognition; no dysarthria, aphasia or cognitive-communication deficits observed by SULFONATION EQUIPMENT OPERATOR. Patient would benefit from at least 1 additional visit to ensure diet tolerance and no further SULFONATION EQUIPMENT OPERATOR needs. Prognosis is favorable for safe po intake with adherence to swallow precautions due to above findings. RECOMMENDATIONS/GOALS: 1. Recommend patient initiate a regular-textured diet with thin liquids and swallow precautions: sitfully upright/chair and remain upright for 30 minutes after meals 2. Recommend pt be monitored for s/sx of aspiration or signs of a developing respiratory infection (i.e. Throat clearing/coughing with po, wet/gurgled voice, fever spikes 30-60 mins after meals, increased chest congestion, leukocytosis, etc). If observed or suspected, recommend medical team place order for Modified Barium Swallow Study 3. Recommend SULFONATION EQUIPMENT OPERATOR therapy 2-5x/wk for 15-45 min/session while in-house to address the following goals: Swallowing: - Patient will tolerate the safest, least restricted po diet texture without overt s/sx of aspiration or other negative effects on medical condition: 4. Discharge rec: TBD, likely same as prior Karla Mohamud MS, [facility]-SULFONATION EQUIPMENT OPERATOR Speech Language Pathology Pager: [phone] Office Number: [phone] signed by Karla Mohamud, SULFONATION EQUIPMENT OPERATOR at 05/11/2020 1:58 PM CDTLucina Chaudhary OT - 05/11/2020 10:47 AM CDTAssociated Order(s): CONSULT ADULT OCCUPATIONAL THERAPY OT GENERAL EVALUATION Consult received via [employer], EMR reviewed and evaluation completed 05/11/20. Patient well known to this service from previous admission. Patient referred to occupational therapy for evaluation and treatment per stroke protocol. Patient agreeable to participate in occupational therapy. Physical exam andtesting does not correlate with functional testing. Discharge Recommendations: Therapy Needs and Potential:Not applicable as no further skilled acute care OT needs at this time. Challenges to Home Transition:- Requires physical assistance for IADLS - Increased risk of falls - Environmental barriers Equipment Recommendations:None PLAN OF CARE: Discharge from OT services Precautions: Weight bearing status: NA General: PPE Utilized: Gloves and Surgical mask and Fall Bracing: N/A Current Occupational Performance and/or Treatment: Grooming: Modified independent to brush teeth while standing at sink with verbal cue for positioning with RW at sink Bathing: NT but educated to continue with seated showers when family available for supervision UB Dressing: Moderate assist to don robe at EOB, requires assist to move robe around back LB Dressing: SBA/Setup to adjust socks at bed level and EOB with hip on trunk flexion Toilet Transfer: Modified independent using L grab bar following education for safe transfer technique Toileting Hygiene: Modified independent, manages clothing, voids, and performs blessing care with safety considerations. Functional Mobility: HOB elevated, sup <-> sit EOB, sit <-> stand with modified independence, amb to/from bathroom using RW. Patient/caregiver educated on: ADL training, Dexterity/coordination (3x/daily, handout issued), Roleof OT and Safety awareness Patient left reclining in bedside chair with call cooper in reach. Patient denies need for pure wick. Please, see full evaluation below for more detail. OT EVALUATION: 39 year old female Admit date: 05/10/2020 Date of onset: 05/05/2020 Admit Diagnosis: Stroke like symptoms OT Diagnosis: Impaired BADL independence, Impaired IADL independence, Weakness, Impaired self-care mobility and Decreased UE Function Non-Dominant PMH: Past Medical History: Diagnosis Date A-fib Anemia [...] sinus syndrome TIA (transient ischemic attack) Transaminitis Vitamin D deficiency PSH: Past Surgical History: Procedure Laterality Date CHOLECYSTECTOMY COLONOSCOPY N/A 08/02/2018 Surgeon: Natalya Davis MD; Location: [facility] ([facility]) OR Location ESOPHAGOGASTRODUODENOSCOPY N/A 08/02/2018 Surgeon: Natalya Davis MD; Location: [facility] ([facility]) OR Location HB CONFIRM LOOP RECORDER Removed 10/2017 HYSTERECTOMY 07/2012 PACEMAKERS INSERTION 10/2017 [facility]; Dr Imtiaz Soto, [facility], inserted twice PAIN: Before assessment: 0/10 After assessment: 0/10 Location: na Pain Management: na OCCUPATIONAL ROLES/HOME ENVIRONMENT: Home environment: Mobile Home/Trailer, Lives with spouse, with son (15 years old) and aunt and Stairs . 17/04 assist is available. Bathroom access: Yes Bathroom setup: Combo Occupation(s): Unemployed Function prior to admission: Household ambulation, Community ambulation, Modified independent with BADLs and Modified independent with IADLs Equipment prior to admission: RW, small based quad cane, shower chair, grab bars at toilet and tub/shower, shower chair, hand held shower head PERFORMANCE SKILLS/FACTORS: UE Muscle Tone: bilateral WNL UE ROM: bilateral AROM WFL, although observed with decreased L shoulder flexion ~ 110 degrees against gravity UE Strength: R UE 5/5, L deltoid and hand 3-/5, wrist extensor 5/5, wrist flexor 3+/5, supinator 4/5, pronator 3+/5, bicep 4-/5 and tricep 4/5 Hand dominance: right Dexterity/Coordination: bilateral Fine motor skills and bilateral Gross motor skills delayed but Intact; later observed to manipulate wallet and purse with JOE UE and no apparent deficits Endurance - Sitting: Good Standing: Good Sitting Balance - Static: Good Dynamic: Good Standing: Balance - Static Good Dynamic: Fair+ Dizziness: No Skin Integrity: No breakdown noted Sensation: bilateral Intact to light touch although not to pinpoint Oral Motor: Defer to SULFONATION EQUIPMENT OPERATOR and Poor dentition Communication: Able to verbalize needs Yes Other: N/A Vision: WFL Yes Other: glasses or contacts, reads medium print from 12 inches Hearing: good; no issues reported COGNITION: Orientation: NT Follows Commands: 1-step Yes Multi-step Yes Inconsistencies No Safety Awareness/Judgment: Good PROBLEM LIST: Decreased independence with ADL, Decreased functional ROM, Decreased strength/endurance for functional activity and Sensory deficits REHAB POTENTIAL/PROGNOSIS: good PATIENT/FAMILY GOALS: to eat TREATMENT/INTERVENTION PLAN: Discharge from OT PATIENT-FAMILY TEACHING Patient provided with preferred teaching of verbal information, written information and demonstration on ADL training, Dexterity/coordination (3x/daily, handout issued), Role of OT and Safety awareness. Shows readiness to learn. Verbal instruction and Written material teaching provided. Individual lucy balizes understanding of teaching provided. JERRY Dunham, AMRY, C/NDT Pager [phone] Total Timed Treatment Codes: 8 Min Total Treatment Time: 33 Min Patient Complexity Level Moderate - An occupational therapy evaluation of moderate complexity was completed using the above tests and measures. The following information was obtained: An occupational profile and medical and therapy history, including an expanded review of medical and/or therapy records and additional review of physical, cognitive, or psychosocial history related to current functional performance, Various standardized and non-standardized assessments were used to identify at least 3-5 performance deficits related to physical, cognitive, or psychosocial skills that result in activity limitations and/or participation restrictions and Clinical decision making of moderate analytic complexity, which includes an analysis of the occupational profile, analysis of data from detailed assessment(s), and consideration of several treatment options. Patient may present with comorbidities thataffect occupational performance. Minimal to moderate modification of tasks or assistance (e.g., physical or verbal) with assessment(s) is necessary to enable patient to complete evaluation component. Aurora Maki SW - 05/11/2020 10:43 AM CDTAssociated Order(s): CONSULT PLASTER CASTER-ADULTCare Management Social Functional Assessment Patient Name: Jenni Rivera Age: [age] year old Sex: female Patient's Previous Admission Date at [facility]: 10/28/2019 Current diagnosis and co-morbidities: Stroke like symptoms Readmission Questions: Was patient discharged from any acute care hospital within the last 30 days: No Social Functional Assessment: Primary language spoken/preferred: Citizen Of [place] Mental Status: Alert & Oriented to Person,Place & Time Information given by: Self Patient's support system: Parent;Spouse;Child Name and number of support system: father, Linus Rivera [phone], child, , Jayden Chaudhary Primary Railways Assistant: Self MPOA: Yes Name and relation to patient (e.g. Ailyn Nails, daughter): father, Linus Rivera [phone] Living Arrangement: Home Address of living arrangement : [address] [place] [address] in [place] [phone] Persons living in home: Self;Same as support system Barriers to returning home: None Baseline functional status- ambulation: Requires minimal to moderate assistance Functional status-baseline personal care: Independent Baseline functional status- driving: Independent Baseline functional status- grocery shopping: Independent Functional status-baseline housekeeping: Independent Functional status-baseline meal prep: Independent Current functional status same as prior: Yes Do you have a PCP?: Yes Name of PCP: Diya Mora [facility] Care Agency: No Provider Services: No DME Company: No Equipment: CPAP;Cane;Nebulizer Hemodialysis: No Community resources utilized: SSA/SSI/Medicaid Funding Resources: Medicaid HMO Prescription coverage plan: Medicaid unlimited slots Pharmacy where meds are filled: ([facility]) Anticipated services prior to disharge: Continue Medical Eval Expected mode of discharge transportation: Same as support system Additional info required for discharge planning: Pending medical evaluation Recommended discharge plan: Home;Home with new Home Health Any issues or concerns with obtaining/affording your medications at home: no. 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 Describe: no issues. Patient reported to feel safe in home (no abuse/neglect issues) SFA Complete: Social Functional Assessment complete: Yes Alcohol Use Screening (AUDIT-C) How often do you have a drink containing alcohol?: Never SCORE: 0 Patient denied tobacco, alcohol, and illicit drug use. Role of Care Management explained. Kathrine Nails, MARTINA-IPR [phone] [address] [place] [address] Care Mgmt Dept Elayne Grande MD - 05/11/2020 10:41 AM CDTAssociated Order(s): CONSULT CARDIAC EP/HEART RHYTHM CENTERDevice interrogation was performed by dr Sandy . Please ask time study technologist to contact [facility] before MRI. pls contact us if you have any more questions Elayne Newton MD General replanting machine crew PGY-5 GOCeline modi R - 05/11/2020 10:23 AM CDTAssociated Order(s): CONSULT FOOD AND NUTRITION Medical Nutrition Therapy - Consult Note: Reason For Consultation: Physician consult: Stroke Protocol Admission Chief Complaint: The pts chief complaint(s) documented on 05/10/[address] Bedoya were left sided weakness. Present on Admission: Stroke PMH/PSH: Per H&P: Patient with hx of seizure since 19 y/o, takes Keppra 1g BID. She is compliant with medication. Episode preceded by abdominal pain and she has GTC seizures or LE shaking. After the episodes she is confused. She endorses 1 episode every 6 months. Denies toxic habits. Past Medical History: Diagnosis Date A-fib Anemia [...] sinus syndrome TIA (transient ischemic attack) Transaminitis Vitamin D deficiency PSH noted. Current Medical Status: I have reviewed additional [facility] documentation for an understanding of the patient's current medical condition and plan of care. GI and Nutrition Related Findings: Symptoms: Nausea(-), Vomiting(-), Constipation(+), Diarrhea(-), Abdominal Pain(-) Difficulty: Chewing(-), Swallowing(-) GI tract alteration: N/A Alternative means of nutrition: N/A General: N/A Medications: I have reviewed the medications currently ordered in the EMR located under the medications andMAR tabs. Current medications include: Current Facility-Administered Medications: Saline Bubble Study, 6 mL, Injection, SEE-INSTRUCTIONS, Anthony Davila MD, 6 mL at 05/11/20 1252 Saline Bubble Study, 6 mL, Injection, SEE-INSTRUCTIONS, Anthony Davila MD, 6 mL at 05/11/20 1250 albuterol (PROVENTIL) 2.5 mg /3 mL (0.083 %) nebulizer solution 2.5 mg, 2.5 mg, Inhalation, QID, Garret Mckeon MD, 2.5 mg at 05/11/20 1236 ALPRAZolam (XANAX) tablet 0.25 mg, 0.25 mg, Oral, QHSPRN, Garret Mckeon MD apixaban (ELIQUIS) tablet 5 mg, 5 mg, Oral, BID, Garret Mckeon MD, Stopped at 05/10/201952 ARIPiprazole (ABILIFY) tablet 10 mg, 10 mg, Oral, QHS, Garret Mckeon MD, Stopped at 05/10/201953 ARIPiprazole (ABILIFY) tablet 5 mg, 5 mg, Oral, DAILY, Garret Mckeon MD atorvastatin (LIPITOR) tablet 80 mg, 80 mg, Oral, QHS, Garret Mckeon MD, Stopped at 05/10/201952 digoxin (LANOXIN) tablet 125 mcg, 125 mcg, Oral, DAILY, Garret Mckeon MD Fluticasone-Salmeterol (ADVAIR) 100-50 mcg/dose inhalation disk 1 Puff, 1 Puff, Inhalation, Q12H, Garret Mckeon MD, 1 Puff at 05/11/20 0917 ipratropium (ATROVENT) 0.02 % nebulizer solution 0.5 mg, 0.5 mg, Inhalation, QID, Garret Mckeon MD, 0.5 mg at 05/11/20 1236 labetalol (NORMODYNE) injection 10 mg, 10 mg, Slow IV Push, PRN, Garret Mckeon MD levETIRAcetam (KEPPRA) in NACL (ISO-OS) 1,000 mg/100 mL RTU, 1,000 mg, IV Infusion, Q12H, Garret Mckeon MD, 1,000 mg at 05/11/20 0352 NaCl 0.9% (NS) IV infusion 1,000 mL, 1,000 mL, IV Infusion, CONTINUOUS, Garret Mckeon MD, Last Rate: 75 mL/hr at 05/11/20 0140, 1,000 mL at 05/11/20 0140 pantoprazole (PROTONIX) EC tablet 40 mg, 40 mg, Oral, DAILY, Garret Mckeon MD pregabalin (LYRICA) capsule 25 mg, 25 mg, Oral, QHS, Garret Mckeon MD, Stopped at 05/10/201953 topiramate (TOPAMAX) tablet 100 mg, 100 mg, Oral, QHS, Garret Mckeon MD, Stopped at 05/10/201953 venlafaxine (EFFEXOR) tablet 75 mg, 75 mg, Oral, QHS, Garret Mckeon MD, Stopped at 05/10/201954 venlafaxine XR (EFFEXOR XR) 24 hr capsule 150 mg, 150 mg, Oral, QAM WITH BREAKFAST, Garret Mckeon MD Lab and Medical Test Results: 05/11/2020 04:07 NA 137 K 4.0 CL 107 CO2 TOTAL 27 AGAP 3 BUN 12 GLUCOSE 89 CREATININE 0.55 eGFR CALCULATION (non ) 123.7 05/10/2020 11:21 CHOL 207 (H) TRIG 178 (H) HDL CHOL 31 (L) HDLC RATIO 6.7 (H) LDL CHOL 140 VLDL 36 CALCIUM 8.4 (L) No intake or output data in the 24 hours ending 05/11/20 1023 Nutrition Assessment: Age: [age] year old Sex: female Ht: 1.5m / 4'11" Ht Readings from Last 3 Encounters: 04/10/20 1.499 m (4' 11") 03/24/20 1.499 m (4' 11") 02/20/20 1.499 m (4' 11") Current Wt: 56.2 kg/ 124 lb BMI: Body mass index is 25.04 kg/m. (Overweight) IBW for Ht: 43.3 kg +/- 4.5 kg %IBW: 130% Weight History: Wt Readings from Last 10 Encounters: 05/10/20 56.2 kg (124 lb) 04/10/20 56.2 kg (124 lb) 03/25/20 57.4 kg (126 lb 7 oz) 02/20/20 49.9 kg (110 lb) 12/12/19 50.3 kg (110 lb 14.3 oz) 12/10/19 50.3 kg (110 lb 12.8 oz) 12/02/19 50.4 kg (111 lb 3.2 oz) 11/26/19 51.3 kg (113 lb) 11/16/19 49.4 kg (109 lb) 11/06/19 50.8 kg (112 lb) Inflammatory Markers: N/A Current Dietary Order(s): Cardiac (2 gm Sodium, Low Fat, Low Cholesterol) Diet; Texture: Regular EMR documented food allergies/intolerance/cultural preferences: Fish containing products/Fish/Seafood Coconut Iodine Nutrition & Diet History: Nutrition assessment of 39 year-old female. Visited patient at bedside. Patient endorsed food allergies to coconut and iodine. Patient denies any abdominal pain, nausea, vomiting, or diarrhea. Patient stated she was constipated at time of visit. Patient had food tray at bedside and stated it was her first meal in 1 1/2 days as her diet was changed today from NPO to cardiac diet. She attributes her constipation to not eating. If constipation continues, recommend starting bowel regimen. Patient statesshe has a good appetite. Patient did not know her UBW or if she had any recent weight changes. Notedin her weight history, patient had a 14 lb weight gain from 02/20/20. Patient has elevated Chol and Trig and a history of HTN and HLD. Recommend continuing cardiac diet. Provided heart healthy nutritiontherapy handouts to patient for later reference. Patient did not want to discuss handouts at time ofvisit. Will continue to follow-up with patient as time permits. Estimated Daily Nutritional Needs: Calories: 2528-6021 kcal/day = 25-28 kcal/kg current wt = 32-37 kcal/kg IBW Protein: 15% of kcal need/day = 56-67 g/day = 1.0-1.2 g/kg current wt = 1.31.5 g/kg IBW Fluid: 0860-6192 mL/day or per MD; adjust per acute needs Nutrition Diagnosis: Inadequate oral intake related to previous NPO status as evidenced by patient not being able to eat for 1 1/2 days. Nutrition Plan of Care: Intervention(s): 1. Recommend continuing Cardiac Diet (2g Na, low fat/chol) 2. Provide Heart Healthy Nutrition therapy education a. Limit saturated/trans fats, added sugars, cholesterol b. Limit processed foods 3. If constipation continues, recommend starting bowel regimen Goal(s): 1. The patient will eat at least 75% of all provided meals without any intolerances. 2. The patient will verbalize understanding of diet education. D/C Planning: Heart Healthy Diet: Limit sodium <2 g/day Limit Cholesterol <200 mg/day Try salt free seasonings include paprika, pepper, cumin, basil, oregano..etc. Make sure to read labels at home, remember that 140 mg or less is considered "low sodium" Try to use healthy fats/oils including olive oil, safflower oil, avocado oil, canola oil..etc. Try to reduce intake of fast food items. Look for healthier options when eating out. Nutrition Monitoring and Evaluation: A registered dietitian/creative intern will f/u as indicated to report nutrition related informationand to revise the recommended nutrition intervention(s); please call with questions or concerns, thank-you. Celine Brown Finisher Polisher RD Office: [id number] signed by Isabel Prado at 05/11/2020 4:25 PM CDT Associated attestation - Isabel Prado - 05/11/2020 4:25 PM CDTI discussed this patient with Celine Brown Finisher Polisher. I personally participated in the evaluation of the patient and agree with the plan as written. Please see the note for additional details. Stephanie Prado MS, RD, LD Office: [id number] Mario Sheehan MD - 05/10/2020 8:12 PM [facility]TCard[facility] Device Evaluation Note Reason for Device Evaluation: Stroke Referring Physician: Dr. Padilla Cardiac Device Evaluation: Evaluation performed: Programming Device: [employer] Dual lead Pacemaker ssurity Mode: DDD Battery: >5 years Atrial Lead: Sensing: >5 mV Impedance: 430 Ohms Threshold: 0.875 V @ 0.4 ms Right Ventricular Lead: Sensin.8 mV Impedance: 400 Ohms Threshold: 1 V @ 0.4 ms Arrhythmias: 1 episode in March of high ventricular rate appearing sinus tachycardia Other: <1% paced, Leads and Generator are MRI conditional Radiology/X-ray: Reviewed Impression: Well functioning Pacemaker Recommendation: 1. No rhythm cause for symptoms 2. Radiology MRI to coordinate completion of scan with device reps ([employer]) Thank you for allowing us to participate in the care of your patient. Please feel free to contact us for any questions or if we can be of further assistance. Keny Sandy MD 05/10/2020 8:13 PM Tam Perez PT - 05/10/2020 3:24 PM CDTAssociated Order(s): CONSULT ADULT PHYSICAL THERAPY Patient agreeable to working with physical therapy. Patient met Semi reclined in bed. Neurology MD verbally agreed to proceed with assessment. PHYSICAL THERAPY EVALUATION Consult received, chart reviewed and evaluation completed this date 05/10/2020. Patient is referred to PT for evaluation and treatment. Patient is a 39 year old female who presents to hospital for Stroke like symptoms . Discharge Recommendations: Therapy Needs and Potential: Patient would benefit from continued physical therapy services to address: decline in bed mobility decline in transfers decline in gait and/or balance decreased strength decreased endurance Patient demonstrates good potential to improve and meet therapy goals with further physical therapy services. Patient appears motivated to improve their functional mobility and return to their previous levelof function. Patient demonstrates ability to tolerate atleast 30-60 minutes of physical therapy with active participation. Challenges to Home Transition: increased risk of falls Equipment recommendations: rolling walker, will update on next follow-up intervention Current Functional Status and/or Treatment:Functional mobility training and Patient/Family/Caregivereducation Bed Mobility: Supine to sit: SBA/Setup Scooting to edge of bed: SBA/Setup Sit to supine: SBA/Setup. Transfers: Sit to stand: CGA using Straight Cane Stand to sit: CGA using Straight Cane, Ambulation: Assisted patient with ambulation as follows: 85 feet using Straight Cane and CGA Patient presenting with Step-to gait pattern. . Decreased swing, heel-toe pattern, step length onLLE> Therapeutic exercise: patient educated in Adaptive equipment , Fall prevention, General strengthening, Relaxation/breathing techniques and Safety awareness., instructed patient in the following: ankle pumps, toe flexion/extension After session, patient Semi reclined in bed, Bed alarm on . Call button provided. Nurse notified. PLAN OF CARE: At least 3 times per week, once or twice a day (while in hospital) per patient's tolerance and medical needs. See below for complete details. Admit Date: 05/10/2020 Hospital Diagnosis:Stroke like symptoms PT Diagnosis: Malaise/fatigue and Abnormality of gait and balance Weight Bearing Precaution: NA General Precautions: PPE used:Gloves and Surgical mask, Fall, Droplet isolation, Bracing/Cast present or required:N/A PMH: Past Medical History: Diagnosis Date A-fib Anemia [...] sinus syndrome TIA (transient ischemic attack) Transaminitis Vitamin D deficiency PSH: Past Surgical History: Procedure Laterality Date CHOLECYSTECTOMY COLONOSCOPY N/A 08/02/2018 Surgeon: Natalya Davis MD; Location: [facility] ([facility]) [facility] Location ESOPHAGOGASTRODUODENOSCOPY N/A 08/02/2018 Surgeon: Natalya Davis MD; Location: [facility] ([facility]) OR Location HB CONFIRM LOOP RECORDER Removed 10/2017 HYSTERECTOMY 07/2012 PACEMAKERS INSERTION 10/2017 [facility] [employer]; Dr Imtiaz Soto, [facility], inserted twice Prior Living Situation: mobile home, with their spouse and with their son, one step entry DME: Single Point Cane Prior level of Mobility: ambulates with Straight Cane Subjective: ' fine' Patient/Family Goals: Regain mobility Patient/Family verbalizes understanding of condition: Yes PAIN: -Pain Description: aching and constant -Pain Location: head -Pain rating before treatment: 6, After treatment: 6 -Pain Management: Nursing Notified COMMUNICATION Primary Language: Citizen Of [place] Able to Verbalize needs: Yes Vision:good; no issues reported and glasses Hearing:good; no issues reported ORIENTATION/COGNITION: Oriented to: person, place, date/time and situation Awake: Yes Alert: Yes Dizzy: Yes Follows Commands: Yes 1-Step Yes Multi-Step Yes Inconsistent: No NEUROLOGICAL Light Touch: within functional limits bilateral LE, Heel to briggs: WFl Tone: WNL BALANCE: Sitting: Static: Excellent Dynamic: Good Standing: Static: Fair Dynamic: Poor+ RANGE OF MOTION: within functional limits bilateral LE, STRENGTH: 5/5 (Normal), R LE , LLE 4-/5 ENDURANCE: Fair+, Room air SKIN INTEGRITY: intact, PROBLEM LIST: Decline in bed mobility, Decline in gait, Decline in transfers, Decreased strength, Decreased endurance, Decreased balance and Pain ASSESSMENT: Patient is a 39 year old female seen secondary to the above listed diagnosis. Patient would benefit from continued PT to address the above listed deficits to maximize independence and safety with functional mobility. Rehabilitation Potential: good Goals: The following goals are to maximize independence and safety with functional mobility to eventually return to prior living situation and prior functional status. 1. Supine to sit: Modified independent Scooting to edge of bed: Modified independent Sit to supine: Modified independent 2. Sit to stand: Modified independent using Rolling Walker Stand to sit: Modified independent using Rolling Walker 3. Modified independent with ambulation, Feet: 300 using least assistive device or use of rolling walker. 4. Demonstrate or verbalize understanding of home exercise program in order to continue with their rehab on their own. Treatment Plan: Gait training, Therapeutic exercise, Transfer training, Balance training, Bed mobility training, Equipment needs assessment and Safety education, patient/caregiver education PATIENT EDUCATION: Patient provided with preferred teaching of verbal information on role of PT, plan of care, . Shows readiness to learn. Verbal instruction teaching provided. Individual is able to read and verbalizes understanding of teaching provided. Total Time Tx Codes in Minutes: 14 min Total Treatment Time in Minutes: 26 min Tam Gill PT, DPT Pager [phone] documented in this encounter Miscellaneous Notes Care Plan - Linus Jara RN - 05/11/2020 10:19 AM CDT Problem: Discharge Planning Goal: Able to perform ADL Outcome: Progressing as expected Goal: Absence of venous thromboembolism Outcome: Progressing as expected Goal: Knowledge of medication management Outcome: Progressing as expected Goal: Knowledge of need for follow-up care Outcome: Progressing as expected Goal: Knowledge of personal stroke risk factors Outcome: Progressing as expected Goal: Knowledge of stroke warning signs Outcome: Progressing as expected Problem: Aspiration, Risk of Goal: Absence of aspiration Outcome: Progressing as expected are Plan - Linus Jara RN - 05/10/2020 1:00 PM CDT Problem: Discharge Planning Goal: Able to perform ADL Outcome: Progressing as expected Goal: Absence of venous thromboembolism Outcome: Progressing as expected Goal: Knowledge of medication management Outcome: Progressing as expected Goal: Knowledge of need for follow-up care Outcome: Progressing as expected Goal: Knowledge of personal stroke risk factors Outcome: Progressing as expected Goal: Knowledge of stroke warning signs Outcome: Progressing as expected Problem: Aspiration, Risk of Goal: Absence of aspiration Outcome: Progressing as expected documented in this encounter Plan of Treatment Date Type Specialty Care Team Description 09/11/2020 Nurse Visit Cardiology Visit, Adc Nurse 10/02/2020 Office Visit Cardiology Navi Hines MD [address] [place] [phone] Name Type Priority Associated Diagnoses Order S chedule EKG-12 LEAD ROUTINE HEART STATION Routine ONCE fo r 1 Occurrences sta rting 05/10/2020 unti l 05/10/2020 URINALYSIS LAB Routine ONCE for 1 Occurrences sta rting 05/10/2020 unti l 05/10/2020 TEST, URINE LAB Routine ONCE f or 1 Occurrences sta rting 05/10/2020 unti l 05/10/2020 EKG-12 LEAD ROUTINE HEART STATION GIGI ONCE fo r 1 Occurrences sta rting 05/11/2020 unti l 05/11/2020 Health Maintenance Due Date Last Done Comments VARICELLA VACCINES (1 of 2 - 2-dose childhood series) 1982 DTaP,Tdap,and Td Vaccines (1 - Tdap) 2000 PAP SMEAR 06/21/2007 06/21/2004 PNEUMOCOCCAL 0-64 YEARS COMBINED SERIES (2 of 3 - 06/23/2018 06/23/2017 PCV13) INFLUENZA VACCINE (#1) 2020 11/16/2015 Depression Screening 12/09/2020 12/10/2019 documented as of this encounter Implants Implanted Type Area Pharmaceutical Salesperson Device Shelf Expiration Model / Identifier Date Serial / Lot Tendril Mri,A Lead-11/01/[address] [employer] [id number]- [id number] / Implanted: Qty: 1 on 11/01/2017 by Imtiaz Soto MD [id number] / Description:This implant is MR Condition al and a member of a 1.5T Only MR Conditional System. Tenril Mri,V Lead-11/01/[address] [employer] [id number] / Implanted: Qty: 1 on 11/01/2017 by Imtiaz Soto MD [id number] / Description:This implant is MR Condition al and a member of a 1.5T Only MR Conditional System. Assurity Mri-11/01/[address] [employer] [id number] / Implanted: Qty: 1 on 11/01/2017 by Imtiaz Soto MD [id number] / Description:This device ids MR Condition al for a 1.5T Scanner Only. documented as of this encounter Procedures Procedure Name Priority Date/Time Associated Comments Diagnosis MR ANGIOGRAM HEAD WO Routine 05/12/2020 12:31 Stroke-like Res ults for this CONTRAST PM CDT symptoms procedure are i n the results section. MR BRAIN WO CONTRAST Routine 05/12/2020 12:31 Stroke-like Res ults for this PM CDT symptoms procedure are i n the results section. MR ANGIOGRAM NECK W WO Routine 05/12/2020 12:29 Stroke-like R esults for this CONTRAST PM CDT symptoms procedure are i n the results section. MAGNESIUM Routine 05/12/2020 3:48 Results for this AM CDT procedure are i n the results section. TROPONIN I Routine 05/11/2020 5:30 Results for this PM CDT procedure are i n the results section. ECHO ROUTINE W/DOPPLER Routine 05/11/2020 12:10 Stroke-like COLOR PM CDT symptoms CBC WITH DIFF Routine 05/11/2020 4:07 Results fo r this AM CDT procedure are i n the results section. BASIC METABOLIC PANEL (NA, Routine 05/11/2020 4:07 Results for this K, CL, CO2, GLUCOSE, BUN, AM CDT pr ocedure are in CREATININE, CA) the results section. MAGNESIUM Routine 05/11/2020 4:07 Results for this AM CDT procedure are i n the results section. ELECTROENCEPHALOGRAM Routine 05/11/2020 Stroke-like Results for this symptoms procedure are i n the results section. EKG-12 LEAD Routine 05/10/2020 1:00 PM CDT XR CHEST 1 VW Routine 05/10/2020 12:05 Stroke-like Results fo r this PM CDT symptoms procedure are i n the results section. KEPPRA (LEVETIRACETAM) Routine 05/10/2020 11:26 R esults for this AM CDT procedure are i n the results section. COVID-19 (ID NOW RAPID Routine 05/10/2020 11:21 R esults for this TESTING) AM CDT procedure are i n the results section. N-TERMINAL PRO-BNP Routine 05/10/2020 11:21 Resul ts for this AM CDT procedure are i n the results section. PROTHROMBIN TIME / INR Routine 05/10/2020 11:21 R esults for this AM CDT procedure are i n the results section. GLYCOSYLATED HEMOGLOBIN Add-on 05/10/2020 11:21 Results for this (A1C) AM CDT procedure are i n the results section. CBC WITH DIFF Routine 05/10/2020 11:21 Results fo r this AM CDT procedure are i n the results section. LIPID PANEL ([id number])(TOTAL Routine 05/10/2020 11:21 Results for this CHOLESTEROL, TRIGLYCERIDES, AM CDT procedure are in HDL) the results section. BASIC METABOLIC PANEL (NA, Routine 05/10/2020 11:21 Results for this K, CL, CO2, GLUCOSE, BUN, AM CDT pr ocedure are in CREATININE, CA) the results section. THYROID STIMULATING HORMONE Add-on 05/10/2020 11:21 Results for this AM CDT procedure are i n the results section. FREE T4 Add-on 05/10/2020 11:21 Results for this AM CDT procedure are i n the results section. TROPONIN I Routine 05/10/2020 11:21 Results for this AM CDT procedure are i n the results section. TEST, SERUM Routine 05/10/2020 11:21 Re sults for this AM CDT procedure are i n the results section. MAGNESIUM Routine 05/10/2020 11:21 Results for this AM CDT procedure are i n the results section. documented in this encounter Results MR ANGIOGRAM HEAD WO CONTRAST (05/12/2020 12:31 PM CDT) Specimen Impressions Performed At PACS/VR/DOSE Unremarkable MRI brain. No evidence of a cute ischemia. Unremarkable MRA head. Unremarkable MRA neck. Narrative Performed At HISTORY:Stroke PACS/VR/DOSE TECHNIQUE: MRI of the brain was performe d without IV contrast. COMPARISON: CT head 06/15/2019. FINDINGS: MRI brain: The ventricles and sulci are within norm al limits for patient's age. There is no midline shift. The basal cis terns are preserved. There is no diffusion restriction to sug gest an acute infarct. No pathological extra-axial fluid collection is seen. No abnormal foci of gradient blooming is identified. MRA head: There is normal flow-related signal in t he petrous, cavernous and supraclinoid ICAs bilaterally. Motion de gradation is seen, which limits evaluation for subtle finding, particularly in the reg ion of the anterior communicating artery. The anterior communicating artery is visualized. The A CA and MCA branches are within normal limits. No sizable posterior communicating arter y is seen. The basilar and posterior cerebral arteries are within normal limits. Bilateral AICA /PICA variants are suspected. 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 The vessels origi nating from the arch are patent the right is normal contrast enhancement in the common carotid and cervical internal carotid arteries. The vertebral arteries originate from the subclavian a rteries bilaterally. These vessels are grossly codominant. Procedure Note [facility], Radiant Results Inft User - 2019 12:53 PM CDT HISTORY:Stroke TECHNIQUE: MRI of the brain was performe d without IV contrast. COMPARISON: CT head 06/15/2019. FINDINGS: MRI brain: The ventricles and sulci are within norm al limits for patient's age. There is no midline shift. The basal cis terns are preserved. There is no diffusion restriction to sug gest an acute infarct. No pathological extra-axial fluid collec tion is seen. No abnormal foci of gradient blooming is identified. MRA head: There is normal flow-related signal in t he petrous, cavernous and supraclinoid ICAs bilaterally. Motion de gradation is seen, which limits evaluation for subtle finding, particula rly in the region of the anterior communicating artery. The anterior communicating artery is vis ualized. The ZOLTAN and MCA branches are within normal limits. No sizable posterior communicating arter y is seen. The basilar and posterior cerebral arteries are within n ormal limits. Bilateral AICA /PICA variants are suspected. 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 The vessels originating from the arch are patent the right is normal contrast enhancement in the common carotid and cervical internal carotid arteries. The vertebral arteries originate from th e subclavian arteries bilaterally. These vessels are grossly codominant. IMPRESSION Unremarkable MRI brain. No evidence of a cute ischemia. Unremarkable MRA head. Unremarkable MRA neck. Performing Organization Address City/State/Zipcode Phone Number PACS/VR/DOSE MR BRAIN WO CONTRAST (05/12/2020 12:31 PM CDT) Specimen Impressions Performed At PACS/VR/DOSE Unremarkable MRI brain. No evidence of a cute ischemia. Unremarkable MRA head. Unremarkable MRA neck. Narrative Performed At HISTORY:Stroke PACS/VR/DOSE TECHNIQUE: MRI of the brain was performe d without IV contrast. COMPARISON: CT head 06/15/2019. FINDINGS: MRI brain: The ventricles and sulci are within norm al limits for patient's age. There is no midline shift. The basal cis terns are preserved. There is no diffusion restriction to sug gest an acute infarct. No pathological extra-axial fluid collection is seen. No abnormal foci of gradient blooming is identified. MRA head: There is normal flow-related signal in t he petrous, cavernous and supraclinoid ICAs bilaterally. Motion de gradation is seen, which limits evaluation for subtle finding, particularly in the reg ion of the anterior communicating artery. The anterior communicating artery is visualized. The A CA and MCA branches are within normal limits. No sizable posterior communicating arter y is seen. The basilar and posterior cerebral arteries are within normal limits. Bilateral AICA /PICA variants are suspected. 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 The vessels origi nating from the arch are patent the right is normal contrast enhancement in the common carotid and cervical internal carotid arteries. The vertebral arteries originate from the subclavian a rteries bilaterally. These vessels are grossly codominant. Procedure Note [facility], Radiant Results Inft User - 2019 12:53 PM CDT HISTORY:Stroke TECHNIQUE: MRI of the brain was performe d without IV contrast. COMPARISON: CT head 06/15/2019. FINDINGS: MRI brain: The ventricles and sulci are within norm al limits for patient's age. There is no midline shift. The basal cis terns are preserved. There is no diffusion restriction to sug gest an acute infarct. No pathological extra-axial fluid collec tion is seen. No abnormal foci of gradient blooming is identified. MRA head: There is normal flow-related signal in t he petrous, cavernous and supraclinoid ICAs bilaterally. Motion de gradation is seen, which limits evaluation for subtle finding, particula rly in the region of the anterior communicating artery. The anterior communicating artery is vis ualized. The ZOLTAN and MCA branches are within normal limits. No sizable posterior communicating arter y is seen. The basilar and posterior cerebral arteries are within n ormal limits. Bilateral AICA /PICA variants are suspected. 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 The vessels originating from the arch are patent the right is normal contrast enhancement in the common carotid and cervical internal carotid arteries. The vertebral arteries originate from th e subclavian arteries bilaterally. These vessels are grossly codominant. IMPRESSION Unremarkable MRI brain. No evidence of a cute ischemia. Unremarkable MRA head. Unremarkable MRA neck. Performing Organization Address City/State/[facility] Phone Number PACS/VR/DOSE MR ANGIOGRAM NECK W WO CONTRAST (05/12/2020 12:29 PM CDT) Specimen Impressions Performed At PACS/VR/DOSE Unremarkable MRI brain. No evidence of a cute ischemia. Unremarkable MRA head. Unremarkable MRA neck. Narrative Performed At HISTORY:Stroke PACS/VR/DOSE TECHNIQUE: MRI of the brain was performe d without IV contrast. COMPARISON: CT head 06/15/2019. FINDINGS: MRI brain: The ventricles and sulci are within norm al limits for patient's age. There is no midline shift. The basal cis terns are preserved. There is no diffusion restriction to sug gest an acute infarct. No pathological extra-axial fluid collection is seen. No abnormal foci of gradient blooming is identified. MRA head: There is normal flow-related signal in t he petrous, cavernous and supraclinoid ICAs bilaterally. Motion de gradation is seen, which limits evaluation for subtle finding, particularly in the reg ion of the anterior communicating artery. The anterior communicating artery is visualized. The A CA and MCA branches are within normal limits. No sizable posterior communicating arter y is seen. The basilar and posterior cerebral arteries are within normal limits. Bilateral AICA /PICA variants are suspected. 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 The vessels origi nating from the arch are patent the right is normal contrast enhancement in the common carotid and cervical internal carotid arteries. The vertebral arteries originate from the subclavian a rteries bilaterally. These vessels are grossly codominant. Procedure Note [facility], Radiant Results Inft User - 2019 12:53 PM CDT HISTORY:Stroke TECHNIQUE: MRI of the brain was performe d without IV contrast. COMPARISON: CT head 06/15/2019. FINDINGS: MRI brain: The ventricles and sulci are within norm al limits for patient's age. There is no midline shift. The basal cis terns are preserved. There is no diffusion restriction to sug gest an acute infarct. No pathological extra-axial fluid collec tion is seen. No abnormal foci of gradient blooming is identified. MRA head: There is normal flow-related signal in t he petrous, cavernous and supraclinoid ICAs bilaterally. Motion de gradation is seen, which limits evaluation for subtle finding, particula rly in the region of the anterior communicating artery. The anterior communicating artery is vis ualized. The ZOLTAN and MCA branches are within normal limits. No sizable posterior communicating arter y is seen. The basilar and posterior cerebral arteries are within n ormal limits. Bilateral AICA /PICA variants are suspected. 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 The vessels originating from the arch are patent the right is normal contrast enhancement in the common carotid and cervical internal carotid arteries. The vertebral arteries originate from th e subclavian arteries bilaterally. These vessels are grossly codominant. IMPRESSION Unremarkable MRI brain. No evidence of a cute ischemia. Unremarkable MRA head. Unremarkable MRA neck. Performing Organization Address City/State/Zipcode Phone Number PACS/VR/DOSE Magensium, Serum (05/12/2020 3:48 AM CDT) Pathologist Sig nature MAGNESIUM 2.3 1.7 - 2.4 mg/dL [facility] Specimen Blood - ARM, LEFT Performing Organization Address [facility] Phone Number [facility] CLIA: [id number] [place] [address] [place] [address] TROPONIN I (05/11/2020 5:30 PM CDT) Pathologist Sig nature TROPONIN I 0.003 <=0.034 ng/mL [facility] Specimen Blood - ARM, LEFT Narrative Performed At Equal or Less than 0.034 ng/ml---Normal [facility] Note: Cardiac troponin begins to rise 3-4 hours after the onset of ischemia. Repeat in 4-6 hours if the sample w as drawn within 3-4 hours of the onset of the symptom and found normal. Between 0.035 and 0.120 ng/mL--- Borderline. Questiona ble myocardial injury or necrosis Note: Serial measurement may be necessary to confirm o r exclude the diagnosis of myocardial injury or necrosis ; Clinical correlation (symptoms, EKGs, imaging studies, and others) required; Repeat in 4-6 hours if clinically indicated. Equal or Higher than 0.121 ng/mL---Abnormal. Myocardia l Injury or Necrosis Likely Biotin has been reported to cause a negative bias, int erpret results relative to patient's use of biotin. Performing Organization Address [facility] Phone Number [facility] CLIA: [id number] [place] [address] [place] [address] Magensium, Serum (05/11/2020 4:07 AM CDT) Pathologist Sig nature MAGNESIUM 2.2 1.7 - 2.4 mg/dL [facility] Specimen Blood - ARM, LEFT Performing Organization Address [facility] Phone Number [facility] CLIA: [id number] [place] [address] [place] [address] Basic Metabolic Panel (Na, K, Cl, CO2, Glucose, BUN, Creatinine, Ca) (05/11/2020 4:07 AM CDT) Pathologist Sig nature NA 137 135 - 145 [facility] mmol/L SERVICES K 4.0 3.5 - 5.0 [facility] mmol/L SERVICES CL 107 98 - 108 mmol/L [facility] CO2 TOTAL 27 23 - 31 mmol/L [facility] AGAP 3 2 - 16 [facility] BUN 12 7 - 23 mg/dL [facility] GLUCOSE 89 70 - 110 mg/dL [facility] CREATININE 0.55 0.50 - 1.04 [facility] mg/dL SERVICES CALCIUM 8.4 (L) 8.6 - 10.6 [facility] mg/dL SERVICES eGFR Calculation 123.7 mL/min/1.73m2 [facility] (Non- SERVICES [place]) eGFR Calculation 149.9 mL/min/1.73m2 [facility] () SERVICES Specimen Blood - ARM, LEFT Narrative Performed At Association of Glomerular Filtration Rate (GFR) and St aging [facility] of Kidney Disease* + + +------- ------ + | GFR (mL/min/1.73 m2) | With Kidney Damage | Wi thout Kidney Damage + + +------- ------ + | >90 | Stage one | Normal + + +------- ------ + | 60-89 | Stage two | Decreased GFR + + +------- ------ + | 30-59 | Stage three | Stage three + + +------- ------ + | 15-29 | Stage four | Stage four + + +------- ------ + | <15 (or dialysis) | Stage five | Stage five + + +------- ------ + *Each stage assumes the associated GFR level has been in effect for at least three months. Stages 1 to 5, wit h or without kidney disease, indicate chronic kidney disease. Notes: Determination of stages one and two (with eGFR >59mL/min/1.73 m2) requires estimation of kidney damag e for at least three months as defined by structural or func tional abnormalities of the kidney, manifested by either: Pathological abnormalities or Markers of kidney damage (including abnormalities in the composition of the blo od or urine or abnormalities in imaging tests) . Performing Organization Address City/State/Zipcode Phone Number [facility] CLIA: [id number] [place] [address] [place] [address] CBC with Differential (05/11/2020 4:07 AM CDT) Pathologist [facility] nature WBC 5.35 4.30 - 11.10 [facility] 10*3/L SERVICES RBC 4.36 3.93 - 5.25 [facility] 10*6/L SERVICES HGB 12.6 11.6 - 15.0 g/dL [facility] HCT 38.4 35.7 - 45.2 % [facility] MCV 88.1 80.6 - 95.5 fL [facility] MCH 28.9 25.9 - 32.8 pg [facility] MCHC 32.8 31.6 - 35.1 g/dL [facility] RDW-SD 41.4 39.0 - 49.9 fL [facility] RDW-CV 12.8 12.0 - 15.5 % [facility] PLT 212 166 - 358 [facility] 10*3/L SERVICES MPV 9.8 9.5 - 12.9 fL [facility] NRBC/100 WBC 0.0 0.0 - 10.0 /100 [facility] WBCs SERVICES NRBC x10^3 <0.01 10*3/L [facility] GRAN MAT (NEUT) % 45.2 % [facility] IMM GRAN % 0.70 % [facility] LYMPH % 45.0 % [facility] MONO % 7.3 % [facility] EOS % 0.9 % [facility] BASO % 0.9 % [facility] GRAN MAT x10^3(ANC) 2.41 1.88 - 7.09 [facility] 10*3/uL SERVICES IMM GRAN x10^3 0.04 0.00 - 0.06 [facility] 10*3/uL SERVICES LYMPH x10^3 2.41 1.32 - 3.29 [facility] 10*3/uL SERVICES MONO x10^3 0.39 0.33 - 0.92 [facility] 10*3/uL SERVICES EOS x10^3 0.05 0.03 - 0.39 [facility] 10*3/uL SERVICES BASO x10^3 0.05 0.01 - 0.07 [facility] 10*3/uL SERVICES Specimen Blood - ARM, LEFT Performing Organization Address City/State/Zipcode Phone Number [facility] CLIA: [id number] [place] [address] [place] [address] Electroencephalogram (EEG) - Duration of test: 20-60 mins (05/11/2020) Narrative Performed At Date and Time of Procedure: 05/11/2020, 8 :09:58-8:31:01 REPORT TECHNICAL SUMMARY: The EEG was recorded digitally. Electrodes were applie d using the International 10/20 System of electrode placement. Eye movements and rhythm strip ECG were monitored on separate channels o f the ongoing EEG recording. The occipital dominant rhythm consists of moderate amp litude 7-8 Hz activity. More anteriorly, similar as well as faster f requencies are present, including low amplitude 18-22 Hz activities i n the anterior leads. There is an excessive amount of 4 -8 Hz activity diffusely. Drowsiness does not reveal additional abnormalities. Sleep is not seen. IMPRESSION: This EEG is abnormal due to mild diffuse slowing, whic h can be suggestive of a mild diffuse disturbance in cerebral f unction but can also be related to sedating medications. No electrographic seizures or epileptiform abnormaliti es are seen. The absence of epileptiform abnormalities in one EEG does not necessarily rule out a diagnosis of epilepsy or the potential for epileptic seizures, however. The diagnostic sensitivity can be e nhanced by a repeat study, which would be appropriate if clinically indicated. __ Pepe Dhillon Rai, MD Date of interpretation: 05/11/2020 XR CHEST 1 VW (05/10/2020 12:05 PM CDT) Specimen Impressions Performed At PACS/VR/DOSE No acute intrathoracic abnormality. Narrative Performed At PROCEDURE: XR CHEST 1 VW PACS/VR/DOSE CLINICAL INDICATION: sob COMPARISON: 11/06/2019 FINDINGS: Right chest wall cardiac pacing device a nd leads are in stable position. The lungs are clear. No pleural effusion or pneumothorax is s een. The cardiomediastinal silhouette is norm al. No acute bony abnormality. Procedure Note [facility], Radiant Results Inft User - 2019 6:56 PM CDT PROCEDURE: XR CHEST 1 VW CLINICAL INDICATION: sob COMPARISON: 11/06/2019 FINDINGS: Right chest wall cardiac pacing device a nd leads are in stable position. The lungs are clear. No pleural effusion or pneumothorax is s een. The cardiomediastinal silhouette is norm al. No acute bony abnormality. IMPRESSION No acute intrathoracic abnormality. Performing Organization Address City/State/Zipcode Phone Number PACS/VR/DOSE KEPPRA (LEVETIRACETAM) (05/10/2020 11:26 AM CDT) Pathologist Sig [facility] KEPPRA 16 12 - 46 ug/mL [facility] Specimen Blood - ARM, LEFT Narrative Performed At Therapeutic range: 12-46 g/mL Toxic: Not well [facility] established. Test developed and characteristics determined by [facility]. Performing Organization Address [facility] Phone Number [facility] CLIA: [id number] [place] [address] [place] [address] FREE T4 (05/10/2020 11:21 AM CDT) [facility] FREE T4 0.89 0.78 - 2.20 ng/dL: [facility] SERVIC ES Specimen Blood - ARM, LEFT Performing Organization Address [facility] Phone Number [facility] CLIA: [id number] [place] [address] [place] [address] GLYCOSYLATED HEMOGLOBIN (A1C) (05/10/2020 11:21 AM CDT) [facility] HGB A1C 5.4 4.0 - 6.0 % [facility] Specimen Blood - ARM, LEFT Performing Organization Address [facility] Number [facility] CLIA: [id number] [place] [address] [place] [address] THYROID STIMULATING HORMONE (05/10/2020 11:21 AM CDT) [facility] TSH 8.45 (H)Comment: 0.45 - 4.70 [facility] Biotin has been mIU/L SERVICES reported to cause a negative bias, interpret results relative to patient's use of biotin. Specimen Blood - ARM, LEFT Performing Organization Address [facility] Phone Number [facility] CLIA: [id number] [place] [address] [phone] 301 [facility] TEST, SERUM (05/10/2020 11:21 AM CDT) Pathologist Sig [facility] PREG SERUM Negative [facility] Specimen Blood - ARM, LEFT Narrative Performed At Less than 10 IU/L. If low titer or ectopic is [facility] suspected, resubmit specimen in 48-72 hours. Performing Organization Address [facility]/Zipcode Phone Number [facility] CLIA: [id number] [place] [address] [place] [address] COVID-19 (ID NOW RAPID TESTING) (05/10/2020 11:21 AM CDT) SARS-CoV-2 Rapid ID Not Detected Not Detected [facility] NOW SERVICES Specimen Swab - NASOPHARYNGEAL SWAB Narrative Performed At ID NOW COVID-19 Assay is an isothermal nucleic acid [facility] amplification test intended for the qualitative detect ion of nucleic acid from SARS-CoV-2 viral RNA in nasopharynge al (REPAIR DEPARTMENT MANAGER) specimens. It is used under Emergency Use Authori zation (EUA) by FDA. The limit of detection (LOD) of the assa y is 125 Genome Equivalents/mL. A positive result is indicative of the presence of SARS-CoV-2 RNA. Clinical correlation with patient hi story and other diagnostic information is necessary to deter mine patient infection status. A negative (Not Detected) result does not preclude SARS-CoV-2 infection. In patients with clinical sympto ms and other tests that are consistent with SARS-CoV-2 infect ion, negative results should be treated as presumptive nega tive and a new specimen should be tested with alternative P CR molecular test. Invalid: Please collect a new specimen for repeat cayla ent testing if clinically indicated. Performing Organization Address [facility]/Zipcode Phone Number [facility] CLIA: [id number] [place] [address] [place] [address] TROPONIN I (05/10/2020 11:21 AM CDT) Pathologist Sig nature TROPONIN I 0.002 <=0.034 ng/mL [facility] Specimen Blood - ARM, LEFT Narrative Performed At Equal or Less than 0.034 ng/ml---Normal [facility] Note: Cardiac troponin begins to rise 3-4 hours after the onset of ischemia. Repeat in 4-6 hours if the sample w as drawn within 3-4 hours of the onset of the symptom and found normal. Between 0.035 and 0.120 ng/mL--- Borderline. Questiona ble myocardial injury or necrosis Note: Serial measurement may be necessary to confirm o r exclude the diagnosis of myocardial injury or necrosis ; Clinical correlation (symptoms, EKGs, imaging studies, and others) required; Repeat in 4-6 hours if clinically indicated. Equal or Higher than 0.121 ng/mL---Abnormal. Myocardia l Injury or Necrosis Likely Biotin has been reported to cause a negative bias, int erpret results relative to patient's use of biotin. Performing Organization Address City/[facility] Phone Number [facility] CLIA: [id number] [place] [address] [place] [address] N-TERMINAL PRO-BNP (05/10/2020 11:21 AM CDT) Pathologist Sig nature NT-proBNP 213 (H) <=125 pg/mL [facility] Specimen Blood - ARM, LEFT Narrative Performed At [facility] has been reported to cause a negative bias, int erpret [facility] results relative to patient's use of biotin. Performing Organization Address [facility] Phone Number [facility] CLIA: [id number] [place] [address] [place] [address] Prothrombin Time / INR (05/10/2020 11:21 AM CDT) PROTIME PATIENT 13.8 (H) 10.1 - 12.6 [facility] Seconds SERVICES INR 1.2Comment: Normal [facility] INR <1.1; Warfarin SERVICES Therapeutic range 2.0 to 3.0 or 2.5 to 3.5, depending upon the indications. Specimen Blood - ARM, LEFT Performing Organization Address [facility] Phone Number [facility] CLIA: [id number] [place] [address] [phone] 301 [facility] Magensium, Serum (05/10/2020 11:21 AM CDT) Pathologist Sig kranthi MAGNESIUM 2.2 1.7 - 2.4 mg/dL [facility] Specimen Blood - ARM, LEFT Performing Organization Address [facility] Phone Number [facility] CLIA: [id number] [place] [address] [place] [address] Basic Metabolic Panel (Na, K, Cl, CO2, Glucose, BUN, Creatinine, Ca) (05/10/2020 11:21 AM CDT) Pathologist [facility] nature NA 140 135 - 145 [facility] mmol/L SERVICES K 3.9 3.5 - 5.0 [facility] mmol/L SERVICES CL 109 (H) 98 - 108 mmol/L [facility] SERVICES CO2 TOTAL 25 23 - 31 mmol/L [facility] AGAP 6 2 - 16 [facility] SERVICES BUN 17 7 - 23 mg/dL [facility] GLUCOSE 95 70 - 110 mg/dL [facility] CREATININE 0.58 0.50 - 1.04 [facility] mg/dL SERVICES CALCIUM 8.4 (L) 8.6 - 10.6 [facility] mg/dL SERVICES eGFR Calculation 116.3 mL/min/1.73m2 [facility] (Non- SERVICES [place]) eGFR Calculation 141.0 mL/min/1.73m2 [facility] () SERVICES Specimen Blood - ARM, LEFT Narrative Performed At Association of Glomerular Filtration Rate (GFR) and St aging [facility] SERVICES of Kidney Disease* + + +------- ------ + | GFR (mL/min/1.73 m2) | With Kidney Damage | Wi out Kidney Damage + + +------- ------ + | >90 | Stage one | Normal + + +------- ------ + | 60-89 | Stage two | Decreased GFR + + +------- ------ + | 30-59 | Stage three | Stage three + + +------- ------ + | 15-29 | Stage four | Stage four + + +------- ------ + | <15 (or dialysis) | Stage five | Stage five + + +------- ------ + *Each stage assumes the associated GFR level has been in effect for at least three months. Stages 1 to 5, wit h or without kidney disease, indicate chronic kidney disease. Notes: Determination of stages one and two (with eGFR >59mL/min/1.73 m2) requires estimation of kidney damag e for at least three months as defined by structural or func tional abnormalities of the kidney, manifested by either: Pathological abnormalities or Markers of kidney damage (including abnormalities in the composition of the blo od or urine or abnormalities in imaging tests) . Performing Organization Address City/State/Zipcode Phone Number [facility] CLIA: [id number] [place] [address] [place] [address] CBC with Differential (05/10/2020 11:21 AM CDT) Pathologist Sig nature WBC 7.07 4.30 - 11.10 [facility] 10*3/L SERVICES RBC 4.19 3.93 - 5.25 [facility] 10*6/L SERVICES HGB 12.1 11.6 - 15.0 g/dL [facility] HCT 37.6 35.7 - 45.2 % [facility] MCV 89.7 80.6 - 95.5 fL [facility] MCH 28.9 25.9 - 32.8 pg [facility] MCHC 32.2 31.6 - 35.1 g/dL [facility] RDW-SD 42.8 39.0 - 49.9 fL [facility] RDW-CV 13.1 12.0 - 15.5 % [facility] PLT 222 166 - 358 [facility] 10*3/L SERVICES MPV 10.5 9.5 - 12.9 fL [facility] NRBC/100 WBC 0.0 0.0 - 10.0 /100 [facility] WBCs SERVICES NRBC x10^3 <0.01 10*3/L [facility] GRAN MAT (NEUT) % 50.3 % [facility] IMM GRAN % 0.60 % [facility] LYMPH % 41.3 % [facility] MONO % 6.8 % [facility] EOS % 0.4 % [facility] BASO % 0.6 % [facility] GRAN MAT x10^3(ANC) 3.56 1.88 - 7.09 [facility] 10*3/uL SERVICES IMM GRAN x10^3 0.04 0.00 - 0.06 [facility] 10*3/uL SERVICES LYMPH x10^3 2.92 1.32 - 3.29 [facility] 10*3/uL SERVICES MONO x10^3 0.48 0.33 - 0.92 [facility] 10*3/uL SERVICES EOS x10^3 0.03 0.03 - 0.39 [facility] 10*3/uL SERVICES BASO x10^3 0.04 0.01 - 0.07 [facility] 10*3/uL SERVICES Specimen Blood - ARM, LEFT Performing Organization Address City/State/Zipcode Phone Number [facility] CLIA: [id number] [place] [address] [place] [address] FASTING LIPID PANEL ([id number])(TOTAL CHOLESTEROL, TRIGLYCERIDES, HDL) (05/10/2020 11:21 AM CDT) Pathologist Sig nature CHOL 207 (H) 120 - 200 mg/dL [facility] HDL 31 (L) >50 mg/dL [facility] SERVICES HDLC RATIO 6.7 (H) <=4.5 [facility] SERVICES TRIG 178 (H) 30 - 170 mg/dL [facility] SERVICES LDL CHOL 140 <=160 mg/dL [facility] VLDL 36 5 - 60 mg/dL [facility] SERVICES Specimen Blood - ARM, LEFT Performing Organization Address City/State/Zipcode Phone Number [facility] CLIA: [id number] [place] [address] [place] [address] documented in this encounter Visit Diagnoses Diagnosis Functional neurological symptom disorder with weakness or paralysis - Primary Stroke-like symptoms Other symptoms involving nervous and mus culoskeletal systems Stroke Unspecified cerebral artery occlusion wi th cerebral infarction documented in this encounter Administered Medications Medication Order MAR Action Action Date Dose Rate Site albuterol (PROVENTIL) 2.5 mg /3 Given 05/11/2020 8:28 PM CDT 2. 5 mg mL (0.083 %) nebulizer solution 2.5 mg 2.5 mg, Inhalation, QID, First dose on Mon05/10/20 at 1230, Until Discontinued, Routine Given 05/11/2020 4:30 PM CDT 2.5 mg Given 05/11/2020 12:36 PM CDT 2.5 mg apixaban (ELIQUIS) tablet 5 mg Given 05/12/2020 9:53 AM CDT 5 mg 5 mg, Oral, BID, First dose on Mon05/10/20 at 2000, Until Discontinued, Routine Given 05/11/2020 8:28 PM CDT 5 mg ARIPiprazole (ABILIFY) tablet 10 mg Given 05/11/2020 8:29 PM CDT 10 mg 10 mg, Oral, QHS, First dose on Mon05/10/20 at 2100, Until Discontinued, Routine ARIPiprazole (ABILIFY) tablet 5 mg Given 05/12/2020 9:56 AM CDT 5 mg 5 mg, Oral, DAILY, First dose on Mon05/11/20 at 0900, Until Discontinued, Routine atorvastatin (LIPITOR) tablet 80 mg Given 05/11/2020 8:27 PM CDT 80 mg 80 mg, Oral, QHS, First dose (after last modification) on Mon05/10/20 at 2100, Until Discontinued, Routine dextromethorphan-guaifenesin (ROBITUSSIN DM) Given 0 8:34 PM CDT 5 mL 10-100 mg/5 mL solution 5 mL 5 mL, Oral, Q6HPRN, Starting 05/11/20 at 1834, Until Discontinued, Routine, Cough Fluticasone-Salmeterol (ADVAIR) 100-50 Given 05/12/2020 9:56 AM CDT 1 Puff mcg/dose inhalation disk 1 Puff 1 Puff, Inhalation, Q12H, First dose on Mon05/10/20 at 2000, Until Discontinued Given 05/11/2020 8:28 PM CDT 1 Puff Given 05/11/2020 9:17 AM CDT 1 Puff ipratropium (ATROVENT) 0.02 % nebulizer Given 05/11/2020 8:28 P M CDT 0.5 mg solution 0.5 mg 0.5 mg, Inhalation, QID, First dose on [place] 05/10/20 at 1230, Until Discontinued, Routine Given 05/11/2020 4:30 PM CDT 0.5 mg Given 05/11/2020 12:36 PM CDT 0.5 mg levETIRAcetam (KEPPRA) in NACL (ISO-OS) Given 05/12/2020 3:49 A M CDT 1,000 mg 1,000 mg/100 mL RTU 1,000 mg, IV Infusion, Q12H, First dose on [place] 05/10/20 at 1230, Until Discontinued, 100 mL Given 05/11/2020 4:53 PM CDT 1,000 mg Given 05/11/2020 3:52 AM CDT 1,000 mg NaCl 0.9% (NS) IV infusion 1,000 New Bag 05/11/2020 1:40 AM C DT 1,000 mL 75 mL/hr mL at 75 mL/hr, IV Infusion, CONTINUOUS, Starting Green[place] 05/10/20 at 1130, Until Discontinued, Routine New Bag 05/10/2020 11:18 AM CDT 1,000 mL 75 mL/hr ondansetron (ZOFRAN (PF)) injection 4 mg Given 05/11/2020 4:53 PM CDT 4 mg 4 mg, Slow IV Push, Q6HPRN, Starting Mon05/11/20 at 1629, Until Discontinued, Routine, Nausea and Vomiting (N/V) pantoprazole (PROTONIX) EC tablet 40 mg Given 05/12/2020 9:54 AM CDT 40 mg 40 mg, Oral, DAILY, First dose on Mon05/11/20 at 0900, Until Discontinued, Routine pregabalin (LYRICA) capsule 25 mg Given 05/11/2020 8:27 PM CDT 25 mg 25 mg, Oral, QHS, First dose on Mon05/10/20 at 2100, Until Discontinued, Routine, automobile club membership sales agent approving Restricted medication: AMADO PADILLA Saline Bubble Study Given 05/11/2020 12:52 PM CDT 6 mL 6 mL, Injection, SEE-INSTRUCTIONS, Starting Mon05/11/20 at 1341, Until Discontinued, Routine Saline Bubble Study Given 05/11/2020 12:50 PM CDT 6 mL 6 mL, Injection, SEE-INSTRUCTIONS, Starting Mon05/11/20 at 1341, Until Discontinued, Routine topiramate (TOPAMAX) tablet 100 mg Given 05/11/2020 8:27 PM CDT 100 mg 100 mg, Oral, QHS, First dose on Mon05/10/20 at 2100, Until Discontinued, Routine, automobile club membership sales agent approving Restricted medication: AMADO PADILLA venlafaxine (EFFEXOR) tablet 75 mg Given 05/11/2020 8:28 PM CDT 75 mg 75 mg, Oral, QHS, First dose on Mon05/10/20 at 2100, Until Discontinued, Routine venlafaxine XR (EFFEXOR XR) 24 hr capsule Given 05/12/2020 9:56 AM CDT 150 mg 150 mg 150 mg, Oral, QAM WITH BREAKFAST, First dose on Mon05/11/20 at 0800, Until Discontinued, Routine Medication Order MAR Action Action Date Dose Rate Site acetaminophen ADULT (OFIRMEV) Given 05/10/2020 6:11 PM CDT 1,00 0 mg injection 1,000 mg 1,000 mg, IV Infusion, Administer over 15 Minutes, ONCE NOW, 1 dose, Greenwood 05/10/20 at 1915, Routine, Indication: Non-perioperative Patient, Approved by: Per Policy (NPO Status) gadobenate dimeglumine (MULTIHANCE-15 mL) Given 05/12/2020 12:00 PM CDT 11 mL injection 11.24 mL 11.24 mL (0.2 mL/kg 56.2 kg), Intravenous, ONCE, 1 dose, Mon05/12/20 at 1245, Routine heparin (porcine) injection Given 05/11/2020 9:17 AM CDT 5,000 Units Abdomen-SC 5,000 Units 5,000 Units, Subcutaneous, Q12H, First dose on 05/10/20 at 2000, Until Discontinued, Routine Given 05/10/2020 7:54 PM CDT 5,000 Units Abdo men-SC LORazepam (ATIVAN) tablet 1 mg Given 05/12/2020 9:53 AM CDT 1 mg 1 mg, Oral, ONCE, 1 dose, Mon05/12/20 at 0945, Routine documented in this encounter Additional Health Concerns Infection Onset Date Last Indicated Resolved Time COVID-19 Rule Out 05/10/2020 05/10/2020 05/10/2020 12: 38 PM CDT documented as of this encounter Insurance Payer Benefit Plan / Subscriber ID Effective Phone Address T e Group Dates LYNDSEY LOMELI [id number] 2011-Kobe [employer] Medic [facility] [place] [id number] MANAGED MEDICAID [place], [place] documented as of this encounter
--- OUTSIDE RECORDS SUMMARY | 2020-05-23 22:48 | XMS REPORT | Summary of Care ---
:1980 Author Organization [facility] Address [address] [place] [id number] Care Team Providers Name Role Phone Joshua Reyes Insurance Hmo Yoni Mora MD Primary Care Provider Reason for Visit Reason Comments Transition Of Care Encounter Details Date Type Department Care Team Description 05/13/2020 Transition of Care [facility] Catie Pool Tr [facility]- RN [address] [id number] Allergies Active Allergy Reactions Severity Noted Date [...] as of this encounter (statuses as of 05/13/2020) Medications Medication Sig Dispensed Refills Start Date [...] (deep times daily with vein thrombosis) meals. digoxin 125 mcg (0.125 Take 1 tablet by 30 tablet 3 04/14/2020 Active mg) tabletIndications: mouth daily. History of DVT (deep vein thrombosis), Inappropriate sinus tachycardia documented as of this encounter (statuses as of 05/13/2020) Active Problems Problem Noted Date Functional neurological [...] Added automatically from request for yara arslan [id number] Abdominal pain, unspecified abdominal location 018 Overview: Added automatically from request for yara arslan [id number] Nausea and vomiting, intractability of vomiting not sp ecified, unspecified 07/13/2018 vomiting type Overview: Added automatically from request for yara arslan [id number] Non-cardiac chest pain 04/27/2018 Essential hypertension 04/27/2018 Pacemaker 04/27/2018 PAF (paroxysmal atrial fibrillation) 04/27/2018 History of cardiac pacemaker in situ 08/23/2017 Tachycardia, unspecified 06/22/2017 Elevated liver enzymes 07/23/2014 Pseudoseizure 04/15/2014 Left sided numbness 03/22/2014 Prediabetes 09/24/2013 Loss of weight 09/24/2013 Hypothyroidism 09/24/2013 Overview: ICD10 Diagnosis Term Fiberline Supervisor Utility Hypoglycemia 08/21/2013 Overview: ICD10 Diagnosis Term Fiberline Supervisor Utility documented as of this encounter (statuses as of 05/13/2020) Resolved Problems Problem Noted Date Resolved Date Stroke-like symptoms 05/10/2020 05/12/2020 Stroke 06/15/2019 05/12/2020 Metabolic syndrome X 07/23/2014 07/23/2014 documented as of this encounter (statuses as of 05/13/2020) Immunizations Name Administration Dates Next Due Pneumococcal [...] Assigned at Date Recorded Not on file documented as of this encounter Last Filed Vital Signs Not on filedocumented in this encounter Miscellaneous Notes Telephone Encounter - Catie Pool RN - 05/13/2020 11:13 AM CDT TRANSITIONAL CARE MANAGEMENT ASSESSMENT 05/13/2020 Jenni Rivera [id number] Jenni Rivera is a 39 year old /White female was admitted on 05/10/[address] She was discharged on 05/12/20 with discharge disposition of HR- Routine Discharge. Admitting Physician: Kenneth Alberts Discharge Diagnosis: Stroke rule out. Functional disorder Linked Episodes Type: Episode: Status: Noted: Resolved: Last update: Updated by: TRANSITION OF CARE TCM Active 05/12/2020 05/13/2020 11:07 AM Catie Pool RN Comments:05/12/2020 TCM [id number] outreach documentation: Discharge Assessment Chart Assessed: 05/13/20 TCM Outreach Completed: 05/13/20 Do you have a few minutes to speak with me about how you are doing at home?: Yes Discharge Instructions Do you understand your at-home instructions?: Yes Medications Have you filled your prescriptions and do you have them in your home? : Yes Do you know how to take your medications?: Yes Supplies Did you receive applicable home medical supplies/equipment?: N/A Follow Up Appointment Has a follow up appointment been scheduled?: Yes May I assist with scheduling this appointment?: Patient has outside PCP Do you have any questions about your follow up appointments?: No Are you able to get to your appointment? Who will be taking you?: Yes(self/family) Home Health Assistance Has the home health nurse contacted you since you've been home?: N/A Survey - Recognition Is there anything you would like to share about your recent hospitalization, or anyone you would like to recognize?: No Do you have any suggestions for improvement?: No Do you have any other questions or concerns at this time?: No Future Appointments: Future Appointments Provider Department Dept Phone 09/11/2020 1:30 PM Visit, Debra Nurse [facility] [phone] 10/02/2020 10:00 AM Navi Hines MD [facility] [phone] documented in this encounter Plan of Treatment Date Type Specialty Care Team Description 09/11/2020 Nurse Visit Cardiology Visit, Adc Nurse 10/02/2020 Office Visit Cardiology Navi Hines MD [address] [place] [address] [place] [address] [phone] Health Maintenance Due Date Last Done Comments VARICELLA VACCINES (1 of 2 - 2-dose childhood series) 1982 DTaP,Tdap,and Td Vaccines (1 - Tdap) 2000 PAP SMEAR 06/21/2007 06/21/2004 PNEUMOCOCCAL 0-64 YEARS COMBINED SERIES (2 of 3 - 06/23/2018 06/23/2017 PCV13) INFLUENZA VACCINE (#1) 2020 11/16/2015 Depression Screening 12/09/2020 12/10/2019 documented as of this encounter Implants Implanted Type Area Blanking Press Operator Device Shelf Expiration Model / Identifier Date Serial / Lot Tendril Mri,A Lead-11/01/[address] [employer] RA- [id number] / Implanted: Qty: 1 on 11/01/2017 by Imtiaz Soto MD [id number] / Description:This implant is MR Condition al and a member of a 1.5T Only MR Conditional System. Tenril Mri,V Lead-11/01/[address] [employer] [id number] / Implanted: Qty: 1 on 11/01/2017 by Imtiaz Soto MD [id number] / Description:This implant is MR Condition al and a member of a 1.5T Only MR Conditional System. Assurity Mri-11/01/[address] [employer] [id number] / Implanted: Qty: 1 on 11/01/2017 by Imtiaz Soto MD [id number] / Description:This device ids MR Condition al for a 1.5T Scanner Only. documented as of this encounter Results Not on filedocumented in this encounter Insurance Payer Benefit Plan / Subscriber ID Effective Phone Address T [facility] Group Dates LYNDSEY SOLORIO [id number] 2010-Pre[address] Medic [facility] [place] [address] MANAGED MEDICAID [place] documented as of this encounter
[2020-05-23] MEDS ORDERED: HYDROCODONE/CHLORPHEN 5 ML/OSYR ONE (23:21)
--- NOTE | 2020-05-23 23:22 | ER ---
Nurse's Notes [facility] Name: Jenni Draper Age: 39 yrs Sex: Female : 1980 Arrival Date: 05/23/2020 Time: 22:41 Bed 6 Private MD: Diagnosis: Cough Presentation: 05/23 22:55 Chief complaint: Patient states: she was seen by Dr Mora yesterday diagnosed with bb bronchitis and started on antibiotics and steroids but her cough is not getting any better. Coronavirus screen: cough unrelated to allergies, muscle pain, Client presents with at least one sign or symptom that may indicate coronavirus-19. Standard/surgical mask placed on the client. Ebola Screen: No symptoms or risks identified at this time. Initial Sepsis Screen: Does the patient meet any 2 criteria? No. Patient's initial sepsis screen is negative. Does the patient have a suspected source of infection? No. Patient's initial sepsis screen is negative. Risk Assessment: Do you want to hurt yourself or someone else? Patient reports no desire to harm self or others. Onset of symptoms was May 21, 2020. 22:55 Method Of Arrival: Ambulatory bb 22:55 Acuity: LYUBOV 4 bb Triage Assessment: 23:00 General: Appears in no apparent distress. uncomfortable, Behavior is calm, cooperative. bb Pain: Complains of pain in chest Pain currently is 8 out of 10 on a pain scale. Cardiovascular: Capillary refill < 3 seconds Patient's skin is warm and dry. Respiratory: Reports cough that is persistent. 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 LMP N/A - Hysterectomy bb Historical: - Allergies: 23:00 Adhesives; bb 23:00 Aspirin; bb 23:00 Bactrim; bb 23:00 Benadryl; bb 23:00 Cipro IV; bb 23:00 Clindamycin; bb 23:00 coconut oil; bb 23:00 Demerol; bb 23:00 Detrol; bb 23:00 Diltiazem; bb 23:00 FISH PRODUCT DERIVATIVES; bb 23:00 GABAPENTIN; bb 23:00 Iodine; bb 23:00 Latex, Natural Rubber; bb 23:00 Morphine; bb 23:00 PENICILLINS; bb 23:00 Seroquel; bb 23:00 Sulfa (Sulfonamide Antibiotics); bb 23:00 Suprax; bb 23:00 tramadol; bb - Home Meds: 23:00 Abilify 10 mg Oral tab 1 tab once daily [Active]; albuterol sulfate 1.25 mg/3 mL Inhl bb nebu 3 mL 3 times per day [Active]; albuterol sulfate 1.25 mg/3 mL Inhl nebu 3 mL 3 times per day [Active]; alprazolam 0.25 mg Oral tab 1 tab nightly [Active]; atorvastatin 10 mg Oral tab 1 tab once daily [Active]; benztropine 1 mg Oral tab 1 tab 2 times per day [Active]; buspirone 15 mg Oral tab 1 tab 2 times per day [Active]; Coreg 25 mg Oral tab 1 tab 2 times per day [Active]; Daliresp 500 mcg Oral tab 1 tab once daily [Active]; digoxin 125 mcg Oral tab [Active]; Effexor XR 150 mg Oral cp24 1 cap once daily [Active]; Eliquis 5 mg Oral tab once a day [Active]; esomeprazole magnesium 40 mg Oral cpDR 1 cap once daily [Active]; Keppra 1,000 mg Oral tab 1 tab every 12 hours [Active]; loratadine 10 mg Oral tab 1 tab once daily [Active]; pregabalin 25 mg Oral 1 cap daily [Active]; ProAir HFA 90 mcg/actuation inhalation HFAA 2 puffs every 6 hours [Active]; Spiriva with HandiHaler 18 mcg inhalation CpDv 1 cap once daily [Active]; Topamax 100 mg Oral tab 2 tabs 2 times per day [Active]; venlafaxine 150 mg Oral cp24 1 cap once daily [Active]; - PMHx: 23:00 CHF; bb - PSHx: 23:00 Hysterectomy; bb - Immunization history:: Adult Immunizations up to date. - Social history:: Smoking status: Patient denies any tobacco usage or history of. Screenin:29 Abuse screen: Denies threats or abuse. Nutritional screening: No deficits noted. bb Tuberculosis screening: No symptoms or risk factors identified. Fall Risk None identified. Assessment: 23:28 Reassessment: Patient is alert, oriented x 3, equal unlabored respirations, skin bb warm/dry/pink. pt cough has lessened, pt states she has appt with Dr Duarte on Monday. Pt verbalized understanding of and agrees to plan of care discharge instructions given pt ambulated with steady gait to exit. Vital Signs: 22:55 BP 118 / 88; Pulse 108; Resp 16 S; Temp 98.8(O); Pulse Ox 99% on R/A; Weight 56.7 kg bb (R); Height 4 ft. 11 in. (149.86 cm) (R); Pain 8/10; 22:55 Body Mass Index 25.25 (56.70 kg, 149.86 cm) bb ED Course: 22:41 Patient arrived in ED. bp1 22:42 Franky Horn, RN is Primary Nurse. rv 22:46 Marie Gann FNP-C is PHCP. kb 22:46 Davion Hernandez MD is Attending Physician. kb 22:57 Triage completed. bb 22:58 Chest Single View XRAY In Process Unspecified. EDMS 23:00 Arm band placed on Patient placed in an exam room, on a stretcher, on pulse oximetry. bb 23:00 Patient has correct armband on for positive identification. Pulse ox on. NIBP on. bb 23:29 No provider procedures requiring assistance completed. Patient did not have IV access bb during this emergency room visit. Patient maintains SpO2 saturation greater than 95% on room air. Administered Medications: 23:15 Drug: Tussionex Pennkinetic ER 5 ml Route: PO; rv 23:28 Follow up: Response: No adverse reaction rv Outcome: 23:22 Discharge ordered by MD. kb 23:30 Discharged to home ambulatory. bb 23:30 Condition: stable 23:30 Discharge instructions given to patient, Instructed on discharge instructions, follow up and referral plans. medication usage, Demonstrated understanding of instructions, follow-up care, medications, Prescriptions given X 1. 23:30 Patient left the ED. bb Signatures: Dispatcher [employer] EDMS Marie aGnn FNP-C FNP-Ckb Ballard, Brenda RN RN bb Franky Horn, RN RN rv Coni Nuñez bp1
--- NOTE | 2020-05-23 23:22 | EDPHYS ---
Physician Documentation [facility] Name: Jenni Draper Age: 39 yrs Sex: Female : 1980 Arrival Date: 05/23/2020 Time: 22:41 Bed 6 Private MD: ED Physician Davion Hernandez HPI: 05/23 23:18 This 39 yrs old Female presents to ER via Ambulatory with complaints of Chest kb Pain, Cough, Shortness Of Breath. 23:18 The patient or guardian reports cough, that is constant, described as moderate. Onset: kb The symptoms/episode began/occurred 2 day(s) ago. Severity of symptoms: At their worst the symptoms were moderate, in the emergency department the symptoms are unchanged. Modifying factors: The symptoms are alleviated by nothing, the symptoms are aggravated by nothing. Associated signs and symptoms: The patient has no apparent associated signs or symptoms. The patient has experienced similar episodes in the past. The patient has been recently seen by a physician: the patient's primary care provider, yesterday, with similar presenting complaints, was given a prescription for antibiotics. Pt reports cough for 2 days. Was seen by PCP yesterday and prescribed zithromax and prednisone, but cough persists. Denies fever, chest pain or shortness of breath. 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 LMP N/A - Hysterectomy bb Historical: - Allergies: 23:00 Adhesives; bb 23:00 Aspirin; bb 23:00 Bactrim; bb 23:00 Benadryl; bb 23:00 Cipro IV; bb 23:00 Clindamycin; bb 23:00 coconut oil; bb 23:00 Demerol; bb 23:00 Detrol; bb 23:00 Diltiazem; bb 23:00 FISH PRODUCT DERIVATIVES; bb 23:00 GABAPENTIN; bb 23:00 Iodine; bb 23:00 Latex, Natural Rubber; bb 23:00 Morphine; bb 23:00 PENICILLINS; bb 23:00 Seroquel; bb 23:00 Sulfa (Sulfonamide Antibiotics); bb 23:00 Suprax; bb 23:00 tramadol; bb - Home Meds: 23:00 Abilify 10 mg Oral tab 1 tab once daily [Active]; albuterol sulfate 1.25 mg/3 mL Inhl bb nebu 3 mL 3 times per day [Active]; albuterol sulfate 1.25 mg/3 mL Inhl nebu 3 mL 3 times per day [Active]; alprazolam 0.25 mg Oral tab 1 tab nightly [Active]; atorvastatin 10 mg Oral tab 1 tab once daily [Active]; benztropine 1 mg Oral tab 1 tab 2 times per day [Active]; buspirone 15 mg Oral tab 1 tab 2 times per day [Active]; Coreg 25 mg Oral tab 1 tab 2 times per day [Active]; Daliresp 500 mcg Oral tab 1 tab once daily [Active]; digoxin 125 mcg Oral tab [Active]; Effexor XR 150 mg Oral cp24 1 cap once daily [Active]; Eliquis 5 mg Oral tab once a day [Active]; esomeprazole magnesium 40 mg Oral cpDR 1 cap once daily [Active]; Keppra 1,000 mg Oral tab 1 tab every 12 hours [Active]; loratadine 10 mg Oral tab 1 tab once daily [Active]; pregabalin 25 mg Oral 1 cap daily [Active]; ProAir HFA 90 mcg/actuation inhalation HFAA 2 puffs every 6 hours [Active]; Spiriva with HandiHaler 18 mcg inhalation CpDv 1 cap once daily [Active]; Topamax 100 mg Oral tab 2 tabs 2 times per day [Active]; venlafaxine 150 mg Oral cp24 1 cap once daily [Active]; - PMHx: 23:00 CHF; bb - PSHx: 23:00 Hysterectomy; bb - Immunization history:: Adult Immunizations up to date. - Social history:: Smoking status: Patient denies any tobacco usage or history of. ROS: 23:16 Constitutional: Negative for fever, chills, and weight loss, Cardiovascular: Negative kb for chest pain, palpitations, and edema, Abdomen/GI: Negative for abdominal pain, nausea, vomiting, diarrhea, and constipation, Back: Negative for injury and pain, MS/Extremity: Negative for injury and deformity, Skin: Negative for injury, rash, and discoloration, Neuro: Negative for headache, weakness, numbness, tingling, and seizure. 23:16 Respiratory: Positive for cough, Negative for dyspnea on exertion, hemoptysis, orthopnea, pleurisy, shortness of breath, sputum production, wheezing. Exam: 23:16 Constitutional: This is a well developed, well nourished patient who is awake, alert, kb and in no acute distress. Head/Face: Normocephalic, atraumatic. Chest/axilla: Normal chest wall appearance and motion. Nontender with no deformity. No lesions are appreciated. Cardiovascular: Regular rate and rhythm with a normal S1 and S2. No gallops, murmurs, or rubs. Normal PMI, no JVD. No pulse deficits. Respiratory: Lungs have equal breath sounds bilaterally, clear to auscultation and percussion. No rales, rhonchi or wheezes noted. No increased work of breathing, no retractions or nasal flaring. Abdomen/GI: Soft, non-tender, with normal bowel sounds. No distension or tympany. No guarding or rebound. No evidence of tenderness throughout. Skin: Warm, dry with normal turgor. Normal color with no rashes, no lesions, and no evidence of cellulitis. MS/ Extremity: Pulses equal, no cyanosis. Neurovascular intact. Full, normal range of motion. Neuro: Awake and alert, GCS 15, oriented to person, place, time, and situation. Cranial nerves II-XII grossly intact. Motor strength 5/5 in all extremities. Sensory grossly intact. Cerebellar exam normal. Normal gait. Vital Signs: 22:55 BP 118 / 88; Pulse 108; Resp 16 S; Temp 98.8(O); Pulse Ox 99% on R/A; Weight 56.7 kg bb (R); Height 4 ft. 11 in. (149.86 cm) (R); Pain 8/10; 22:55 Body Mass Index 25.25 (56.70 kg, 149.86 cm) bb MDM: 22:46 Patient medically screened. kb 23:16 Data reviewed: vital signs, nurses notes. Data reviewed: radiologic studies, I have kb discussed the patient's presentation/case with the attending Emergency Department Physician;. Data interpreted: Pulse oximetry: on room air is 99 %. Interpretation: normal. Counseling: I had a detailed discussion with the patient and/or guardian regarding: the historical points, exam findings, and any diagnostic results supporting the discharge/admit diagnosis, radiology results, the need for outpatient follow up, a family practitioner, to return to the emergency department if symptoms worsen or persist or if there are any questions or concerns that arise at home. 23:21 ED course: Pt has appt with Dr Castaneda on Monday. STates "maybe they need to change kb my inhalers or something". 05/23 22:48 Order name: Chest Single View XRAY kb Administered Medications: 23:15 Drug: Tussionex Pennkinetic ER 5 ml Route: PO; rv 23:28 Follow up: Response: No adverse reaction rv Disposition: 05/24 06:15 Co-signature as Attending Physician, Davion Hernandez MD. 7 Disposition: 05/23/20 23:22 Discharged to Home. Impression: Cough. - Condition is Stable. - Discharge Instructions: Chronic Bronchitis, Cough, Adult, [id number]. - Prescriptions for Tessalon Perles 100 mg Oral Capsule - take 1 capsule by ORAL route every 8 hours As needed; 15 capsule. - Medication Reconciliation Form, Thank You Letter, Antibiotic Education, Prescription Opioid Use form. - Follow up: Emergency Department; When: As needed; Reason: Worsening of condition. Follow up: Private Physician; When: 2 - 3 days; Reason: Recheck today's complaints, Continuance of care, Re-evaluation by your physician. Signatures: Dispatcher [employer] EDMS Marie Gann, DINKEY LOCOMOTIVE OPERATOR-C DINKEY LOCOMOTIVE OPERATOR-Denisse Lutz RN RN Franky Ayers RN RN rv Holmes, Maurice, MD MD [email or web address] Corrections: (The following items were deleted from the chart) 05/23 23:30 23:22 05/23/2020 23:22 Discharged to Home. Impression: Cough. Condition is Stable. bb Forms are Medication Reconciliation Form, Thank You Letter, Antibiotic Education, Prescription Opioid Use. Follow up: Emergency Department; When: As needed; Reason: Worsening of condition. Follow up: Private Physician; When: 2 - 3 days; Reason: Recheck today's complaints, Continuance of care, Re-evaluation by your physician. kb
--- NOTE | 2020-05-24 08:44 | RAD REPORT ---
EXAM DESCRIPTION: RAD - Chest Single View - 05/23/2020 10:58 pm CLINICAL HISTORY: Chest pain;Cough COMPARISON: Portable May 08 TECHNIQUE: AP portable chest image was obtained 05/23/2020 10:58 pm . FINDINGS: Lungs are clear. Heart and vasculature are normal. No measurable pleural effusion and no p neumothorax. No acute bony abnormality seen. Pacemaker overlies the right-side of the chest. No acute aortic findings suspected. IMPRESSION: No acute cardiopulmonary process. No change from prior imaging.
== END 2020-05-23 23:30 | disposition home or self-care (01) ==
LOC: ER 22:40
DX: R05 Cough (principal); I50.9 Heart failure, unspecified; Z79.01 Long term (current) use of anticoagulants; Z88.0 Allergy status to penicillin; Z88.1 Allergy status to other antibiotic agents; Z88.2 Allergy status to sulfonamides; Z88.3 Allergy status to other anti-infective agents; Z88.5 Allergy status to narcotic agent; Z88.6 Allergy status to analgesic agent; Z88.8 Allergy status to other drugs, medicaments and biological substances; Z91.013 Allergy to seafood; Z91.040 Latex allergy status; Z91.048 Other nonmedicinal substance allergy status
CPT/HCPCS: 71045; 99284

== ENCOUNTER 2020-06-20 12:31 | Emergency (ER) | payer MEDICAID, OTHER ==
--- OUTSIDE RECORDS SUMMARY | 2020-06-20 12:34 | XMS REPORT | Clinical Summary ---
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
--- OUTSIDE RECORDS SUMMARY | 2020-06-20 12:34 | XMS REPORT | Clinical Summary ---
:1980 Author Organization [facility] Address [address] [place] [address] Care Team Providers Name Role Phone Yoni [...] Not on file Results Not on fileafter 06/20/2019 Insurance Payer Benefit Plan / Group Subscriber ID Type Phone A ascencion SOLORIO MEDICAID MEDICAID SOL[place]IO xxxxxxxxx Advance Directives For more information, please contact:[facility], [place] [phone] Code Status Date Activated Date Inactivated Comments Full Code 08/17/2018 7:42 PM This code status was determined by: Patient
--- OUTSIDE RECORDS SUMMARY | 2020-06-20 12:35 | XMS REPORT | Continuity of Care Document ---
:1980 Author Organization [facility] t Address [address] [place] [address] Care Team Providers Name Role Phone MILTON Primary Care Physician Unavailable Matilde INFANTE Attending Clinician Doctor Unassigned, Name Attending Clinician Unavailable Corine BARRAGAN, M Attending Clinician Valerie LARSEN Attending Clinician Donny LARSEN, K.H. Attending Clinician LEONOR Attending Clinician Unavailable LINETTE Attending Clinician Unavailable Lexus LARSEN Admitting Clinician LEONOR Admitting Clinician Unavailable LINETTE Admitting Clinician Unavailable Problems Condition Condition Condition [...] adverse 00:00: confusion Medica l reaction 00 Center s [place] Propensi Active Rash 2017-[address] [facility] [address] [facility] ty to 10-17 [facility] - adverse 00:00: Medical reaction 00 Center s Gabapent Propensi Active Shortness Of 2017-[address] [facility] [address] [facility] ty to Breath, Rash 10-17 [facility] - adverse 00:00: Medical reaction 00 Center s Iodine Propensi Active Rash 2017-[address] [facility] And ty to 10-17 [facility] - Iodide adverse 00:00: Medical Containi reaction 00 Center ng s Products Latex Propensi Active Rash [...] ics) s Cefixime Propensi Active Rash 2017-09 [facility] ty to 10-17 [facility] - adverse 00:00: Medical reaction 00 Center s Tramadol Propensi Active Rash 2017-09 [facility] ty to 10-17 [facility] - adverse 00:00: Medical reaction 00 Center s Social History Social Habit Start Date Stop Date Quantity Comments Source History [facility] Meth odist Alcohol Std Drinks History [facility] Alcohol Binge Sex Assigned At [facility] Tobacco use and 2018-09-04 2018-09-04 Never used [place] [facility] exposure 00:00:00 00:00:00 Alcohol intake 2018-09-04 2018-09-04 Current [place] [facility] 00:00:00 00:00:00 non-drinker of alcohol (finding) History SDVT 2018-09-04 2018-09-04 1 [place] [facility] Alcohol Frequency 00:00:00 00:00:00 Smoking Status Start Date Stop Date Source Former smoker 2018-09-04 00:00:00 2018-09-04 00:00:00 [facility] Medications Ordered Filled Start Stop Current Ordering [...] times a day. busPIRone 2017-09 Yes 15mg [id number] Take 15 mg [facility] (BUSPAR) 10 2-11 [id number] by mouth 3 [facility] MG tablet 19:13: [...] route Medica l 55 mcg 07 daily. [place] nasal inhaler esomeprazol 2017-09 Yes 40mg QD Take [address] (NEXIUM) 1-23 by mouth [facility] - 40 MG 19:34: daily. Medical capsule 07 [place] albuterol 2017-09 Yes 2{puff} Inhale [address] HFA 1-23 puffs by [facility] - (VENTOLIN 19:34: mouth via Med ical HFA) 90 07 inhaler. [place] mcg/actuati on inhaler levETIRAcet 2017-09 Yes 1000mg [...] 10 mg 18:45: daily. Medical tablet 43 Center pregabalin 2017-09 Yes 25mg QD Take [address] (LYRICA) 25 1-23 by mouth [facility] - MG capsule 18:45: nightly. Med ical 43 [place] busPIRone 2017-09 Yes 15mg Q.5D Take [address] (BUSPAR) 15 - by mouth 2 Jeanie kes - MG [...] 18:45: Bronchitis mouth Medica l 42 daily. [place] digoxin 2017-09 Yes 125ug QD Take 125 [facility] (LANOXIN) 1-23 mcg by [facility] - 0.125 MG 18:45: mouth Medical tablet 42 daily. [place] venlafaxine 2017-09 Yes 150mg QD Take [address] (EFFEXOR-XR 1-23 mg by [facility] - ) 150 MG 24 18:45: mouth Medic al hr capsule 42 daily. [place] apixaban 2017-09 Yes 5mg QD Take [address] [facility] (ELIQUIS) 5 - by mouth [facility] - mg Tab 18:45: daily. Medical tablet 42 [place] ARIPiprazol 2017-09 Yes 10mg QD Take [address] [facility] (ABILIFY) -23 by mouth [facility] - 10 MG 18:45: daily. Medical disintegrat 41 Center ing tablet ARIPiprazol 2017-09 Yes 5mg QD Take [address] [facility] (ABILIFY) - by mouth [facility] - 5 MG tablet 18:45: nightly. Me dical 41 [place] albuterol 2017-09 Yes 1{ampul Q.[id number] Take [address] (ACCUNEB) 1-23 e} [id number] ampule by [facility] - 1.25 mg/3 18:45: 3D nebulizati Ok dical mL 41 on 3 Center nebulizer [...] 18:45: daily as Me dical 41 needed. Center fluticasone 2018- Yes 1{puff} QD Inhale [address] -vilanterol 1-23 puff by [facility] - (BREO 18:45: mouth via Medical ELLIPTA) 41 inhaler Center 100-25 daily. mcg/dose DsDv Procedures This patient has no known procedures. Plan of Care Planned Activity Planned Date Details Comments Source Future Scheduled 2020-04-25 INFLUENZA VACCINE [place] [facility] 00:00:00 [code = INFLUENZA VACCINE] Future Scheduled 2002 Screening for [facility] Test 00:00:00 malignant neoplasm of cervix (procedure) [code = 274922244] Encounters Start End Encounter Admission Attending Care Care Encounter Source Date/Time Date/Time Type Type Clinicians Facility Department ID 2020-06-19 2020-06-19 Telephone Marialuisa Clayton [id number] 00:00:00 00:00:00 H [id number] [facility] 4.2.7.2.686 [id number] 2020-06-03 2020-06-03 Orders Doctor NURYS [id number] 00:00:00 00:00:00 Only Unassigned, PINKY [id number] [place] [facility] 4.2.7.2.686 [id number] 2020-05-13 2020-05-13 Transition Collette Pool [id number] 00:00:00 00:00:00 of Care Catie Solitario Keen [id number] [place] 4.2.7.2.686 [id number] 2020-05-10 2020-05-12 Hospital Valerie Jannette [id number] 10:02:00 17:50:00 Encounter Svetlana Pinky [id number] [place] [id number] 2020-04-29 2020-04-29 Telephone NAKUL Hines [id number] 00:00:00 00:00:00 Navi Stafford 350.1.13.10 [place] 4.2.7.2.686 Professio [id number] [facility]9 [facility] 2020-04-14 2020-04-14 [facility] [id number] 00:00:00 00:00:00 Navi Stafford 350.1.13.10 [place] 4.2.7.2.686 Professio [id number] [address] 2020-04-14 2020-04-14 Orders Doctor NURYS [id number] 00:00:00 00:00:00 Only Unassigned, PINKY 350.1.13.10 [place] [facility] 4.2.7.2.686 [id number] 2020-04-10 2020-04-10 Office Donny [facility] 1.2.840.114 [id number] 09:43:51 10:36:50 Visit Navi Stafford 350.1.13.10 [place] 4.2.7.2.686 Professio [id number] [address] 2020-03-13 2020-03-13 Orders Doctor NURYS [id number] 00:00:00 00:00:00 Only Unassigned, PINKY 350.1.13.10 [place] [address]686 [id number] 2017-09-06 2017-09-08 Inpatient [facility] [id number] . 10:12:00 02:32:00 [facility] Results Test Description Test Time Test Comments Results Result Comments Source POCT-GLUCOSE METER 2018-08-21 10:22:00 Test Item Value Reference Range Interpretation Comme [facility] POC-GLUCOSE METER (ARNOL) (test 102 mg/dL 70-110 TESTED AT [facility] [address] [facility] code = 1538) [facility] [id number] MR, MRA, BRAIN, WITHOUT [id number] 09:32:00Reason for exam:->Ischemic Stroke EvaluationFINAL REPORT MRA Head CLINICAL HISTORY: Ischemic Stroke TECHNIQUE: MRA of the head utilizing 3-D tiwf-hj-tniijd technique, with 3-D reconstructions. COMPARISON: None FINDINGS: There is no evidence of intracranial aneurysm, focal stenosis, or major branch vessel occlusion. IMPRESSION: No evidence for a major [place] proximal branch vessel occlusion. MRA Neck CLINICAL HISTORY: Ischemic Stroke TECHNIQUE: MRA of the neck utilizing 2-D and 3-D bygk-cw-jbnlpx technique, with 3-D reconstructions. COMPARISON: None FINDINGS: The carotid arteries in the neck are patent including their bifurcations. There is antegrade flow in the vertebral arteries in the neck. IMPRESSION: No evidence of hemodynamically significant stenosis in the cervical carotid or vertebral arteries by NASCET criteria. Signed: Santos Neff Verified Date/Time: 08/21/2018 09:32:09 Reading Location: [address] Neuro Reading Room MR, MRA, NECK, WITHOUT IV [id number] 09:32:00Reason for exam:->Ischemic Stroke EvaluationFINAL REPORT MRA Head CLINICAL HISTORY: Ischemic Stroke TECHNIQUE: MRA of the head utilizing 3-D wlyd-lp-njxpaq technique, with 3-D reconstructions. COMPARISON: None FINDINGS: There is no evidence of intracranial aneurysm, focal stenosis, or major branch vessel occlusion. IMPRESSION: No evidence for a major [place] proximal branch vessel occlusion. MRA Neck CLINICAL HISTORY: Ischemic Stroke TECHNIQUE: MRA of the neck utilizing 2-D and 3-D wzqp-ye-xseacr technique, with 3-D reconstructions. COMPARISON: None FINDINGS: The carotid arteries in the neck are patent including their bifurcations. There is antegrade flow in the vertebral arteries in the neck. IMPRESSION: No evidence of hemodynamically significant stenosis in the cervical carotid or vertebral arteries by NASCET criteria. Signed: Santos Neff Verified Date/Time: 08/21/2018 09:32:09 Reading Location: [address] Neuro Reading Room MR, BRAIN, WITHOUT [id number] 09:25:00Reason for exam:- >Ischemic Stroke EvaluationFINAL REPORT [...] MDReport Verified Date/Time: 08/21/2018 09:25:25 Reading Location: [address] POCT-GLUCOSE [id number] 21:26:00 Test Item Value Reference Range Interpretation Comments POC-GLUCOSE METER 119 mg/dL 70-110 H TESTED AT [place] [address] ([facility]) (test code = AYLIN Rivera [facility] 1538) [id number] POCT-GLUCOSE [id number] 18:03:00 Test Item Value Reference Range Interpretation Comments POC-GLUCOSE METER 119 mg/dL 70-110 H TESTED AT [place] [address] ([facility]) (test code = AYLIN Rivera [facility] 1538) [id number] POCT-GLUCOSE [id number] 12:39:00 Test Item Value Reference Range Interpretation Comments POC-GLUCOSE METER 120 mg/dL 70-110 H TESTED AT [place] [address] ([facility]) (test code = AYLIN Rivera [facility] 1538) [address] RAD, CHEST, 1 VIEW, NON [id number] 12:04:00Reason for exam:->To Locate Heart Device (Pacemaker)Should [...] mediastinum: Unremarkable .Additional findings: None. Signed: JR Jose, Caden LOWRYeport Verified Date/Time: 08/20/2018 12:04:06 Reading Location: [facility] Reading Room POCT-GLUCOSE [id number] 09:17:00 Test Item Value Reference Range Interpretation Comments POC-GLUCOSE METER 121 mg/dL 70-110 H TESTED AT [place] [address] [facility] (test code = [facility] 1538) [address] BASIC METABOLIC [id number] 06:56:00 Test Item Value Reference Range Interpretation [...] NOT APPLICABLE FOR DIALYSIS PATIEN TS. POCT-GLUCOSE [id number] 21:09:00 Test Item Value Reference Range Interpretation Comments POC-GLUCOSE METER 109 mg/dL 70-110 TESTED AT [facility] 67[address] [facility] (test code = [facility] 1538) [address] POCT-GLUCOSE [id number] 17:15:00 Test Item Value Reference Range Interpretation Comments POC-GLUCOSE METER 117 mg/dL 70-110 H TESTED AT [place] [address] ([facility]) (test code = [facility] 1538) [address] VITAMIN B12 AND [id number] 06:39:00 Test Item Value Reference Range Interpretation Comments VITAMIN B12 (BEAKER) (test code = 524 pg/mL 213-816 774) FOLATE (BEAKER) (test code = 362) 13.5 ng/mL >=7.0 BASIC METABOLIC [id number] 05:48:00 Test Item Value Reference Range Interpretation [...] S NOT APPLICABLE FOR DIALYSIS PATIEN TS. [id number] 15:42:00 Test Item Value Reference Range Interpretation Comments RPR SCREEN (BEAKER) (test code = Nonreactive Nonreactive 420) HEMOGLOBIN [id number] 09:14:00 Test Item Value Reference Range Interpretation Comments HEMOGLOBIN A1C (BEAKER) (test code = 5.3 % 4.3-6.1 368) TSH/FREE T4 IF [id number] 04:49:00 Test Item Value Reference Range Interpretation Comments THYROID STIMULATING HORMONE 3.18 uIU/mL 0.35-4.94 (BEAKER) (test code = 772) BASIC METABOLIC [id number] 04:38:00 Test Item Value Reference Range Interpretation [...] NOT APPLICABLE FOR DIALYSIS PATIEN TS. LIPID [id number] 04:38:00 Test Item Value Reference Range Interpretation [...] 130-159 High 160-189 Very High >=190HEPATIC FUNCTION [id number] 04:38:00 Test Item Value Reference Range Interpretation [...] (test code = 413) AFB Culture and [id number] 13:24:00Specimen/Source: Wound/PACEMAKERCollected: 09/05/2017 19:45 Status: Final Last Updated: 11/01/2017 13:24 SCV-Jcwop-Gmkxfklkpezx (Final) (Final) 09/07/17 No acid fast bacill seen on direct smear Culture Result (Final) (Final) 11/01/17 No growth of AFB at six (6) weeksFungus Culture with [id number] 12:12:00 Specimen/Source: Wound/PACEMAKERCollected: 09/05/2017 19:45 Status: Final Last Updated: 10/22/2017 12:12 Fungal Smear Result (Final) (Final) 09/06/17 No yeast or hyphae seen Culture Result (Final) (Final) 10/22/17 No fungus isolated at 6 weeksCulture, Blood [id number] 08:23:00Specimen: BloodCollected: 09/04/2017 20:30 Status: Final Last Updated: 09/10/2017 08:23 Culture Result (Final) (Final) No Growth After 5 DaysCulture, Blood [id number] 08:23:00Specimen: BloodCollected: 09/04/2017 20:15 Status: Final Last Updated: 09/10/2017 08:23 Culture Result (Final) (Final) No Growth After 5 DaysCulture, Wound [id number] 08:52:00Specimen: WoundCollected: 09/05/2017 19:45 Status: Final Last Updated: 09/08/2017 08:52 Gram Stain (Final) (Final) 09/06/17 No organisms seen, Few WBC's Culture Result (Final) (Final) 09/08/17 Anaerobic culture:No anaerobes isolated at 3 days Isolate (Final) (Final) 09/07/17Few Staph-coag positive Isolate Staph-coag positive JERMAINE (mcg/ml) Amoxicillin/Clav (AUG)<=4/2 Susceptible Ampicillin (AM) >8 Resistant Ampicillin/Sulb (A/S) <=8/4 Susceptible Cefazolin (CFZ) <=4 Susceptible Ceftriaxone (ACID PURIFIER) <=4 Susceptible Chloramphenicol (C) <=8 Susceptible Ciprofloxacin (CP) <=1 Susceptible Clindamycin (CM) 0.5 Susceptible Erythromycin (E) <=0.25 Susceptible Gentamicin (GM) <=1 Susceptible Imipenem (IMP) <=4 Susceptible Levofloxacin (LEV) <=0.5 Susceptible Linezolid (LNZ) 4 Susceptible Oxacillin (OX1) 0.5 Susceptible Penicillin (P) >8 Resistant Rifampin (RA) <=1 Susceptible Tetracycline (TE) <=1 Susceptible Trimethoprim/Sulfa <=0.5/9.Susceptible (SXT) 5 Vancomycin (VA) 2 SusceptibleRenal [id number] 08:51:00 Test Item Value Reference Range Interpretation [...] National Kidney Foundation,http ://nkd ep.nih.gov CBC with [id number] 07:39:00 Test Item Value Reference Range Interpretation [...] code = ALYMPH) 1.7 K/cumm 0.5-4.6 N [place] Abs (test code = AMONO) 0.3 K/cumm 0.0-1.2 N Eos Abs (test code = AEOS) 0.29 K/cumm 0.00-0.74 N Baso Abs (test code = ABASO) 0.0 K/cumm 0.00-0.21 N Vancomycin, [id number] 12:33:00 Test Item Value Reference Range Interpretation Comments Melony Harman (test code = VANTR) 7.9 ug/mL 10.0-20.0 L Magnesium, [id number] 06:37:00 Test Item Value Reference Range Interpretation Comments Magnesium (test code = MG) 2.4 mg/dL 1.7-2.5 N Renal [id number] 06:29:00 Test Item Value Reference Range Interpretation [...] validated by th e MDRD study and horace d be interpretedwith caution.eGFR Re sult Interpretation: eGFR > or = 60 is in t he Normal RangeeGF R < 60 may mean kidney diseaseeGFR < 1 5 may mean kidney failureRange s recommended by the National Kidney Foundation,http ://nkd ep.nih.gov BHCG, Serum, [id number] 06:26:00 Test Item Value Reference Range Interpretation Comments Preg Qual [Se] (test code = BSHCG) Negative Negative N CBC with [id number] 06:24:00 Test Item Value Reference Range Interpretation [...] code = ALYMPH) 1.6 K/cumm 0.5-4.6 N [place] Abs (test code = AMONO) 0.4 K/cumm 0.0-1.2 N Eos Abs (test code = AEOS) 0.18 K/cumm 0.00-0.74 N Baso Abs (test code = ABASO) 0.0 K/cumm 0.00-0.21 N XR CHEST 1 [id number] 16:29:55XR CHEST 1 VIEWLOCATION: [id number]: None.INDICATION: REVIEW PICC LINE PLACEMENTDISCUSSION:AP chest and [...] = TSH) 3.44 mIU/mL 0.270-4.200 N Lipid [id number] 05:47:00 Test Item Value Reference Range Interpretation Comments Cholesterol (test 160 mg/dL 0-200 N code = CHOL) Triglycerides (test 126 mg/dL 9-200 N code = TRIG) HDL (test code = 35 mg/dL 50-60 L HDL) Chol/HDL (test code 4.6 Ratio 0.0-4.4 H = CHOLPHDL) LDL, Calculated 100 0-130 N (NOTE)RISK O F HEART (test code = LDLC) DISEASEPu blished by [place] Heart AssociationAnal yte Optim al Boderline Increased RiskC HOL <200 200-239 >240TRI G <150 150-199 >200HDL Male: >60 <40HDL Female: >60 <50 LDL < 100 130-15 9 >160 LDL NEAR OPTIMAL IS 100- 129 VLDL (test code = 25 mg/dL 5-40 N VLDL) LDL/HDL (test code = 3 LDLPHDL) Basic Metabolic [id number] 05:47:00 Test Item Value Reference Range Interpretation [...] the National Kidney Foundation,http ://nkd ep.nih.gov Magnesium, [id number] 05:47:00 Test Item Value Reference Range Interpretation Comments Magnesium (test code = MG) 2.3 mg/dL 1.7-2.5 N CBC with [id number] 05:36:00 Test Item Value Reference Range Interpretation [...] code = ALYMPH) 2.2 K/cumm 0.5-4.6 N [place] Abs (test code = AMONO) 0.3 K/cumm 0.0-1.2 N Eos Abs (test code = AEOS) 0.24 K/cumm 0.00-0.74 N Baso Abs (test code = ABASO) 0.0 K/cumm 0.00-0.21 N Partial Thromboplastin [id number] 21:26:00 Test Item Value Reference Range Interpretation Comments aPTT (test code = PTT) 29.00 seconds 24.39-37.25 N Prothrombin [id number] 21:26:00 Test Item Value Reference Range Interpretation Comments PT (test code = PT) 10.70 seconds 9.78-13.35 N INR (test code = INR) 0.95 Ratio 0.6-1.2 N Comprehensive Metabolic [id number] 21:23:00 Test Item Value Reference Range Interpretation [...] validated by th e MDRD study and horace d be interpretedwith caution.eGFR Re sult Interpretation: eGFR > or = 60 is in t he Normal RangeeGF R < 60 may mean kidney diseaseeGFR < 1 5 may mean kidney failureRange s recommended by the National Kidney Foundation,http ://nkd ep.nih.gov CBC with [id number] 21:16:00 Test Item Value Reference Range Interpretation [...] code = ALYMPH) 2.2 K/cumm 0.5-4.6 N [place] Abs (test code = AMONO) 0.4 K/cumm 0.0-1.2 N Eos Abs (test code = AEOS) 0.17 K/cumm 0.00-0.74 N Baso Abs (test code = ABASO) 0.1 K/cumm 0.00-0.21 N
--- OUTSIDE RECORDS SUMMARY | 2020-06-20 12:39 | XMS REPORT | Summary of Care ---
:1980 Author Organization [facility] Address [address] [place] [address] Care Team Providers Name Role Phone Joshua Reyes Lila Insurance Hmo Yoni Mora MD Primary Care Provider Reason for Visit Reason Comments Assessment Encounter Details Date Type Department Care Team Description 06/19/2020 Telephone [facility] Marialuisa Clayton NP Assessment Hematology-Oncology - [address] [place] [id number] [address] [place] [phone] [facility], [address] [phone] ( Fax) [phone] [place] [address] Allergies Active Allergy Reactions Severity Noted Date [...] as of this encounter (statuses as of 06/19/2020) Medications Medication Sig Dispensed Refills Start Date [...] as of this encounter (statuses as of 06/19/2020) Active Problems Problem Noted Date Functional neurological [...] Added automatically from request for yara arslan [id number] Abdominal pain, unspecified abdominal location 018 Overview: Added automatically from request for yara arslan [id number] Nausea and vomiting, intractability of vomiting not sp ecified, unspecified 07/13/2018 vomiting type Overview: Added automatically from request for yara mcdaniels [id number] Non-cardiac chest pain 04/27/2018 Essential hypertension 04/27/2018 Pacemaker 04/27/2018 PAF (paroxysmal atrial fibrillation) 04/27/2018 History of cardiac pacemaker in situ 08/23/2017 Tachycardia, unspecified 06/22/2017 Elevated liver enzymes 07/23/2014 Pseudoseizure 04/15/2014 Left sided numbness 03/22/2014 Prediabetes 09/24/2013 Loss of weight 09/24/2013 Hypothyroidism 09/24/2013 Overview: ICD10 Diagnosis Term Wool Hat Hydraulicker Utility Hypoglycemia 08/21/2013 Overview: ICD10 Diagnosis Term Wool Hat Hydraulicker Utility documented as of this encounter (statuses as of 06/19/2020) Resolved Problems Problem Noted Date Resolved Date Stroke-like symptoms 05/10/2020 05/12/2020 Stroke 06/15/2019 05/12/2020 Metabolic syndrome X 07/23/2014 07/23/2014 documented as of this encounter (statuses as of 06/19/2020) Immunizations Name Administration Dates Next Due Pneumococcal [...] this encounter Miscellaneous Notes Telephone Encounter - Marialuisa Clayton NP - 06/19/2020 3:37 PM CDTSpoke to patient at length. Apologized to patient on scheduling issues. Explaining her that given her complex medical history and recent hospitalization for stroke like symptoms, her anticoagulation recommendation requires in person discussion with the rail signal designer to best serve her health needs. Hypercoagulable workup was essentially negative. She had history of DVT, TIA like symptom, sick sinus syndrome, atrial fibrillation status post pacemaker in 2018. From cardiology point of view, no indication for Eliquis. Her hypercoagulable work up was essentially negative. Pt states she would prefer to keep taking Eliquis especially given her recent left side weakness/stroke like symptoms that required 2 day hospitalization in 04/2020. I explained her that I will review her chart with my supervising physician Dr. Adams for recommendations. I will arrange her to see a female rail signal designer in the coming Months if indicated. She reportedly has been tolerating Eliquis well without problems. She understands the final anticoagulation decision will partially dependant on her comfort level as long as she has a full understanding of the prosand cons of therapy. I will reach out again for update and feedback. Pt verbalizes understanding and agrees with the above. documented in this encounter Plan of Treatment Date Type Specialty Care Team Description 06/26/2020 Office Visit Neurology Hernesto Beverly MD [address] [place], [place] [address]d. [place], [place] [phone] 09/11/2020 Nurse Visit Cardiology Visit, Adc Nurse 10/02/2020 Office Visit Cardiology Navi Hines MD [address] [place], [place] [phone] Health Maintenance Due Date Last Done Comments VARICELLA VACCINES (1 of 2 - 2-dose childhood series) 1982 DTaP,Tdap,and Td Vaccines (1 - Tdap) 2000 PAP SMEAR 06/21/2007 06/21/2004 PNEUMOCOCCAL 0-64 YEARS COMBINED SERIES (2 of 3 - 06/23/2018 06/23/2017 PCV13) INFLUENZA VACCINE (#1) 2020 11/16/2015 Depression Screening 12/09/2020 12/10/2019 documented as of this encounter Implants Implanted Type Area Casino Runner Device Shelf Expiration Model / Identifier Date Serial / Lot Tendril Mri,A Lead-11/01/[address] [employer] RA- [id number] / Implanted: Qty: 1 on 11/01/2017 by Imtiaz Soto MD [id number] / Description:This implant is MR Condition al and a member of a 1.5T Only MR Conditional System. Tenril Mri,V Lead-11/01/[address] [employer] [id number] / Implanted: Qty: 1 on 11/01/2017 by Imtiaz Soto MD [id number] / Description:This implant is MR Condition al and a member of a 1.5T Only MR Conditional System. Assurity Mri-11/01/[address] [employer] [id number] / Implanted: Qty: 1 on 11/01/2017 by Imtiaz Soto MD [id number] / Description:This device ids MR Condition al for a 1.5T Scanner Only. documented as of this encounter Results Not on filedocumented in this encounter Insurance Payer Benefit Plan / Subscriber ID Effective Phone Address [facility] Group Dates LYNDSEY SOLORIO [id number] 2010-[place] [address] MANAGED MEDICAID [place], [place] documented as of this encounter
--- OUTSIDE RECORDS SUMMARY | 2020-06-20 12:39 | XMS REPORT | Summary of Care ---
:1980 Author Organization [facility] - Health Address [address] [place] [address] Care Team Providers Name Role Phone Joshua Reyes Insurance Hmo Lila Reyes Primary Care Provider Yoni Mora MD Primary Care Provider Encounter Details Date Type Department Care Team Description 03/13/2020 Orders Only [facility] Doctor Unassigned, No [address] [facility] [place] [address] [address] [place] [phone] Allergies Active Allergy Reactions Severity Noted Date [...] as of this encounter (statuses as of 2020) Medications Medication Sig Dispensed Refills Start Date [...] as of this encounter (statuses as of 2020) Active Problems Problem Noted Date Functional neurological [...] Added automatically from request for yara arslan [id number] Abdominal pain, unspecified abdominal location 018 Overview: Added automatically from request for yara arslan [id number] Nausea and vomiting, intractability of vomiting not sp ecified, unspecified 07/13/2018 vomiting type Overview: Added automatically from request for yara arslan [id number] Non-cardiac chest pain 04/27/2018 Essential hypertension 04/27/2018 Pacemaker 04/27/2018 PAF (paroxysmal atrial fibrillation) 04/27/2018 History of cardiac pacemaker in situ 08/23/2017 Tachycardia, unspecified 06/22/2017 Elevated liver enzymes 07/23/2014 Pseudoseizure 04/15/2014 Left sided numbness 03/22/2014 Prediabetes 09/24/2013 Loss of weight 09/24/2013 Hypothyroidism 09/24/2013 Overview: ICD10 Diagnosis Term Glue Bone Drier Utility Hypoglycemia 08/21/2013 Overview: ICD10 Diagnosis Term Glue Bone Drier Utility documented as of this encounter (statuses as of 2020) Resolved Problems Problem Noted Date Resolved Date Stroke-like symptoms 05/10/2020 05/12/2020 Stroke 06/15/2019 05/12/2020 Metabolic syndrome X 07/23/2014 07/23/2014 documented as of this encounter (statuses as of 2020) Immunizations Name Administration Dates Next Due Pneumococcal [...] Treatment Date Type Specialty Care Team Description 06/25/2020 Office Visit Oncology Marialuisa Clayton NP [address] [place] [address] 555 09/11/2020 Nurse Visit Cardiology Visit, Debra Nurse 10/02/2020 Office Visit Cardiology Navi Hines MD [address] [place], [place] [phone] Health Maintenance Due Date Last Done Comments VARICELLA VACCINES (1 of 2 - 2-dose childhood series) 1982 DTaP,Tdap,and Td Vaccines (1 - Tdap) 2000 PAP SMEAR 06/21/2007 06/21/2004 PNEUMOCOCCAL 0-64 YEARS COMBINED SERIES (2 of 3 - 06/23/2018 06/23/2017 PCV13) INFLUENZA VACCINE (#1) 2020 11/16/2015 Depression Screening 12/09/2020 12/10/2019 documented as of this encounter Implants Implanted Type Area Cadet Deck Device Shelf Expiration Model / Identifier Date Serial / Lot Tendril Mri,A Lead-11/01/[address] [employer] RA- [id number] / Implanted: Qty: 1 on 11/01/2017 by Imtiaz Soto MD [id number] / Description:This implant is MR Condition al and a member of a 1.5T Only MR Conditional System. Tenril Mri,V Lead-11/01/[address] [employer] [id number] / Implanted: Qty: 1 on 11/01/2017 by Imtiaz Soto MD [id number] / Description:This implant is MR Condition al and a member of a 1.5T Only MR Conditional System. Assurity Mri-11/01/[address] [employer] [id number] / Implanted: Qty: 1 on 11/01/2017 by Imtiaz Soto MD [id number] / Description:This device ids MR Condition al for a 1.5T Scanner Only. documented as of this encounter Procedures Procedure Name Priority Date/Time Associated Diagnosis Comme nts REFERRAL- Routine 03/13/2020 12:01 AM CDT REQUEST/RESPONSE documented in this encounter Results Not on filedocumented in this encounter Additional Health Concerns Infection Onset Date Last Indicated Resolved Time COVID-19 Rule Out 05/10/2020 05/10/2020 05/10/2020 12: 38 PM CDT documented as of this encounter Insurance Payer Benefit Plan / Subscriber ID Effective Phone Address [facility] Group Dates LYNDSEY SOLORIO [id number] 2011-Prese [address] BOX Medic [facility] [place] [address] MA[place]GED MEDICAID [place], [place] documented as of this encounter
--- OUTSIDE RECORDS SUMMARY | 2020-06-20 12:39 | XMS REPORT | Summary of Care ---
:1980 Author Organization [facility] - Health Address [address] [place] [address] Care Team Providers Name Role Phone Joshua Reyes Insurance Hmo Yoni Mora MD Primary Care Provider Encounter Details Date Type Department Care Team Description 06/03/2020 Orders Only [facility] Doctor Unassigned, No 301 [facility] [place] [address] [address] [place] [phone] Allergies Active Allergy Reactions Severity Noted Date [...] as of this encounter (statuses as of 06/03/2020) Medications Medication Sig Dispensed Refills Start Date [...] as of this encounter (statuses as of 06/03/2020) Active Problems Problem Noted Date Functional neurological [...] Added automatically from request for yara arslan [id number] Abdominal pain, unspecified abdominal location 018 Overview: Added automatically from request for yara arslan [id number] Nausea and vomiting, intractability of vomiting not sp ecified, unspecified 07/13/2018 vomiting type Overview: Added automatically from request for yara arslan [id number] Non-cardiac chest pain 04/27/2018 Essential hypertension 04/27/2018 Pacemaker 04/27/2018 PAF (paroxysmal atrial fibrillation) 04/27/2018 History of cardiac pacemaker in situ 08/23/2017 Tachycardia, unspecified 06/22/2017 Elevated liver enzymes 07/23/2014 Pseudoseizure 04/15/2014 Left sided numbness 03/22/2014 Prediabetes 09/24/2013 Loss of weight 09/24/2013 Hypothyroidism 09/24/2013 Overview: ICD10 Diagnosis Term Tour Guide Utility Hypoglycemia 08/21/2013 Overview: ICD10 Diagnosis Term Tour Guide Utility documented as of this encounter (statuses as of 06/03/2020) Resolved Problems Problem Noted Date Resolved Date Stroke-like symptoms 05/10/2020 05/12/2020 Stroke 06/15/2019 05/12/2020 Metabolic syndrome X 07/23/2014 07/23/2014 documented as of this encounter (statuses as of 06/03/2020) Immunizations Name Administration Dates Next Due Pneumococcal [...] 06/25/2020 Office Visit Oncology Marialuisa Clayton NP [address] [place] [address] 555 [phone] 09/11/2020 Nurse Visit Cardiology Visit, Adc Nurse 10/02/2020 Office Visit Cardiology Navi Hines MD [address] [place] [address] [phone] Health Maintenance Due Date Last Done Comments VARICELLA VACCINES (1 of 2 - 2-dose childhood series) 1982 DTaP,Tdap,and Td Vaccines (1 - Tdap) 2000 PAP SMEAR 06/21/2007 06/21/2004 PNEUMOCOCCAL 0-64 YEARS COMBINED SERIES (2 of 3 - 06/23/2018 06/23/2017 PCV13) INFLUENZA VACCINE (#1) 2020 11/16/2015 Depression Screening 12/09/2020 12/10/2019 documented as of this encounter Implants Implanted Type Area Fish Cleaner Machine Tender Device Shelf Expiration Model / Identifier Date Serial / Lot Tendril Mri,A Lead-11/01/[address] [employer] RA- [id number] / Implanted: Qty: 1 on 11/01/2017 by Imtiaz Soto MD [id number] / Description:This implant is MR Condition al and a member of a 1.5T Only MR Conditional System. Tenril Mri,V Lead-11/01/[address] [employer] [id number] / Implanted: Qty: 1 on 11/01/2017 by Imtiaz Soto MD [id number] / Description:This implant is MR Condition al and a member of a 1.5T Only MR Conditional System. Assurity Mri-11/01/[address] [employer] [id number] / Implanted: Qty: 1 on 11/01/2017 by Imtiaz Soto MD [id number] / Description:This device ids MR Condition al for a 1.5T Scanner Only. documented as of this encounter Procedures Procedure Name Priority Date/Time Associated Diagnosis Comme nts EXTERNAL PROVIDER Routine 06/03/2020 12:01 AM CDT RECORDS documented in this encounter Results Not on filedocumented in this encounter Insurance Payer Benefit Plan / Subscriber ID Effective Phone Address T e Group Dates LYNDSEY SOLORIO [id number] 2011-Prese [address] Medic aid [facility] [place] [address] MANAGED MEDICAID [place] documented as of this encounter
[2020-06-20] MEDS ORDERED: PROMETHAZINE INJ 25 MG/ML AMP ONE (14:09)
[2020-06-20] MEDS ORDERED: FENTANYL CITR 100 MCG/2 ML ONE (14:10)
--- NOTE | 2020-06-20 14:35 | RAD REPORT ---
EXAM DESCRIPTION: CT - Soft Tissue Neck Wo Contr - 06/20/2020 2:14 pm CLINICAL HISTORY: mandibular pain/ swelling COMPARISON: none TECHNIQUE: Computed axial tomography of the neck was obtained. IV contrast was not requested. Coron al and sagittal reconstruction was performed. All CT scans are performed using dose optimization technique as appropriate and may include automated exposure control or mA/KV adjustment according to patient size. FINDINGS: The pharynx, tongue base, larynx and subglottic trachea appear unremarkable The parotid, submandibular and thyroid glands appear unremarkable. Small reactive lymph nodes Lucencies surround several mandibular and maxillary teeth Fluid within the sinuses/mastoids is not seen. Mild mucoperiosteal thickening right maxillary sinus IMPRESSION: Lucency surrounds several mandibular and maxillary teeth consistent with periapical absc esses.
--- NOTE | 2020-06-20 15:05 | EDPHYS ---
Physician Documentation [facility] Name: Jenni Draper Age: 40 yrs Sex: Female : 1980 Arrival Date: 06/20/2020 Time: 12:33 Bed 20 Private MD: ED Physician Kong Reyes HPI: 06/20 13:49 This 40 yrs old Female presents to ER via Ambulatory with complaints of Left pm1 facial swelling. 13:49 The patient presents with swelling. The problem is located in the left jaw. pm1 13:49 Onset: The symptoms/episode began/occurred 2 week(s) ago. Duration: The symptoms are pm1 continuous. Modifying factors: The symptoms are alleviated by nothing, the symptoms are aggravated by nothing. Associated signs and symptoms: Pertinent positives: cough, congestion, and nausea for 3 weeks. Has had 5 negative covid tests. Seen by Dr. Escobar on who attempted to drain a cyst on the left jaw area. This "cyst" is the patient's main concern because it is painful and causes her nausea. She is not bothered by her cough and congestion. Historical: - Allergies: 12:48 Adhesives; ll1 12:48 Aspirin; ll1 12:48 Bactrim; ll1 12:48 Benadryl; ll1 12:48 Cipro IV; ll1 12:48 Clindamycin; ll1 12:48 coconut oil; ll1 12:48 Demerol; ll1 12:48 Detrol; ll1 12:48 Diltiazem; ll1 12:48 FISH PRODUCT DERIVATIVES; ll1 12:48 GABAPENTIN; ll1 12:48 Iodine; ll1 12:48 Latex, Natural Rubber; ll1 12:48 Morphine; ll1 12:48 PENICILLINS; ll1 12:48 Seroquel; ll1 12:48 Sulfa (Sulfonamide Antibiotics); ll1 12:48 Suprax; ll1 12:48 tramadol; ll1 12:48 Doxycycline; ll1 12:48 Levofloxacin; ll1 12:48 cefixime; ll1 12:48 Codeine; ll1 12:48 ivabradine; ll1 12:48 QUETIAPINE; ll1 12:48 tolterodine; ll1 - PMHx: 12:49 CHF; ll1 - PSHx: 12:49 Hysterectomy; ll1 - Immunization history:: Flu vaccine is up to date. - Social history:: Smoking status: Patient denies any tobacco usage or history of. ROS: 13:49 Constitutional: Negative for fever, chills, and weight loss, ENT: Negative for injury, pm1 pain, and discharge, Neck: Negative for injury, pain, and swelling, Cardiovascular: Negative for chest pain, palpitations, and edema. 13:49 Back: Negative for injury and pain, MS/Extremity: Negative for injury and deformity, Skin: Negative for injury, rash, and discoloration, Neuro: Negative for headache, weakness, numbness, tingling, and seizure. 13:49 Respiratory: Positive for cough, Negative for shortness of breath. 13:49 Abdomen/GI: Positive for nausea, Negative for abdominal pain, vomiting, diarrhea. Exam: 13:49 Constitutional: This is a well developed, well nourished patient who is awake, alert, pm1 and in no acute distress. Head/Face: Normocephalic, atraumatic. 13:49 Neck: Trachea midline, no thyromegaly or masses palpated, and no cervical lymphadenopathy. Supple, full range of motion without nuchal rigidity, or vertebral point tenderness. No Meningismus. MS/ Extremity: Pulses equal, no cyanosis. Neurovascular intact. Full, normal range of motion. 13:49 ENT: External ear(s): are unremarkable, Posterior pharynx: is normal, Dental exam: dental caries, that is severe, diffusely, gum swelling, not appreciated, missing teeth, diffusely. 13:49 Cardiovascular: Exam negative for acute changes, Rate: normal, Rhythm: regular, Pulses: no pulse deficits are appreciated. 13:49 Respiratory: Exam negative for acute changes, respiratory distress, shortness of breath. 13:49 Skin: Appearance: normal except for affected area, abscess, not appreciated, cellulitis, is not appreciated, mild swelling to left madible. 13:49 Neuro: Exam negative for acute changes, Orientation: is normal, Mentation: is normal, Motor: moves all fours. Vital Signs: 12:49 BP 126 / 99; Pulse 90; Resp 18; Temp 99.5; Pulse Ox 98% ; Weight 57.61 kg; Height 4 ft. ll1 11 in. (149.86 cm); Pain 10/10; 14:30 BP 119 / 94; Pulse 87; Resp 16; Pulse Ox 100% on R/A; ph 15:47 BP 117 / 86; Pulse 81; Resp 18; Temp 98.0; Pulse Ox 99% on R/A; ph 12:49 Body Mass Index 25.65 (57.61 kg, 149.86 cm) ll1 MDM: 13:32 Patient medically screened. pm1 15:04 Data reviewed: vital signs. Data interpreted: Pulse oximetry: on room air is 98 %. pm1 Interpretation: normal. Counseling: I had a detailed discussion with the patient and/or guardian regarding: the historical points, exam findings, and any diagnostic results supporting the discharge/admit diagnosis, radiology results, the need for outpatient follow up, for definitive care, a dentist, to return to the emergency department if symptoms worsen or persist or if there are any questions or concerns that arise at home. 15:04 ED course: Patient did not believe that her swelling to her jaw was dental related. pm1 Explained to the patient that the CT report was multiple periapical/dental abscesses. Patient did not believe the CT report because she was told that it was a cyst before. However patient's pain improved with fentanyl given. Patient with reported multiple allergies to antibiotics with side effects of swelling, blistering, and difficulty breathing. Therefore after reviewing allergies prescribed Flagyl. Instructed patient to follow up with dentist. 06/20 14:11 Order name: Soft Tissue Neck Wo Contr; Complete Time: 14:53 EDMS 06/20 13:43 Order name: Saline Lock; Complete Time: 14:04 pm1 Administered Medications: 14:08 Drug: fentaNYL (PF) 50 mcg Route: IVP; Site: right forearm; ph 15:47 Follow up: Response: No adverse reaction; Pain is decreased ph 14:08 Drug: Phenergan 12.5 mg Route: IVP; Site: right forearm; ph 15:47 Follow up: Response: No adverse reaction; Nausea is decreased ph Disposition: 06/21 08:45 Co-signature as Attending Physician, Kong Reyes MD I agree with the assessment and kdr plan of care. Disposition: 06/20/20 15:05 Discharged to Home. Impression: Periapical abscess without sinus. - Condition is Stable. - Discharge Instructions: Dental Abscess, Diet and Dental Disease. - Prescriptions for Flagyl 500 mg Oral Tablet - take 1 tablet by ORAL route every 6 hours for 10 days; 40 tablet. Tylenol- Codeine #3 300-30 mg Oral Tablet - take 2 tablets by ORAL route every 6 hours As needed; 20 tablet. promethazine 25 mg Oral Tablet - take 1 tablet by ORAL route every 6 hours As needed; 20 tablet. - Medication Reconciliation Form, Thank You Letter, Antibiotic Education, Prescription Opioid Use form. - Follow up: Emergency Department; When: As needed; Reason: Worsening of condition. Follow up: Private Physician; When: 2 - 3 days; Reason: Recheck today's complaints, Continuance of care, Re-evaluation by your physician. - Problem is new. - Symptoms have improved. Signatures: Dispatcher [employer] [facility] Kong Reyes MD MD [facility] Darlene Perry, RN RN ph Zurdo Prasad, ARELIS STRAW HAT PLUNGER OPERATOR pm1 Nicho Beckman RN RN ll1 Corrections: (The following items were deleted from the chart) 06/20 14:11 13:43 Soft Tissue Neck W/Contr+CT.RAD.BRZ ordered. [facility] 15:51 15:05 06/20/2020 15:05 Discharged to Home. Impression: Periapical abscess without ph sinus. Condition is Stable. Forms are Medication Reconciliation Form, Thank You Letter, Antibiotic Education, Prescription Opioid Use. Follow up: Emergency Department; When: As needed; Reason: Worsening of condition. Follow up: Private Physician; When: 2 - 3 days; Reason: Recheck today's complaints, Continuance of care, Re-evaluation by your physician. Problem is new. Symptoms have improved. pm1
--- NOTE | 2020-06-20 15:05 | ER ---
Nurse's Notes [facility] Name: Jenni Draper Age: 40 yrs Sex: Female : 1980 Arrival Date: 06/20/2020 Time: 12:33 Bed 20 Private MD: Diagnosis: Periapical abscess without sinus Presentation: 06/20 12:49 Chief complaint: Patient states: 1. Cough/congestion for 3 weeks. Took z-pack, didn't ll1 get better. Got Rocephin shot yesterday with Dr. Escobar. 2. Left jaw line sore for [address] Escobar tried to drain it 3 times. No fever. Coronavirus screen: Client denies travel out of the [place] in the last 14 days. At this time, the client does not indicate any symptoms associated with coronavirus-19. The client reports previous COVID testing was negative. Ebola Screen: Patient denies travel to an Ebola-affected area in the 21 days before illness onset. Initial Sepsis Screen: Does the patient meet any 2 criteria? No. Patient's initial sepsis screen is negative. Risk Assessment: Do you want to hurt yourself or someone else? Patient reports no desire to harm self or others. Onset of symptoms was May 30, 2020. 12:49 Method Of Arrival: Ambulatory ll1 12:49 Acuity: LYUBOV 3 ll1 14:00 Initial Sepsis Screen: Does the patient have a suspected source of infection? Yes: ph Other: dental. Historical: - Allergies: 12:48 Adhesives; ll1 12:48 Aspirin; ll1 12:48 Bactrim; ll1 12:48 Benadryl; ll1 12:48 Cipro IV; ll1 12:48 Clindamycin; ll1 12:48 coconut oil; ll1 12:48 Demerol; ll1 12:48 Detrol; ll1 12:48 Diltiazem; ll1 12:48 FISH PRODUCT DERIVATIVES; ll1 12:48 GABAPENTIN; ll1 12:48 Iodine; ll1 12:48 Latex, Natural Rubber; ll1 12:48 Morphine; ll1 12:48 PENICILLINS; ll1 12:48 Seroquel; ll1 12:48 Sulfa (Sulfonamide Antibiotics); ll1 12:48 Suprax; ll1 12:48 tramadol; ll1 12:48 Doxycycline; ll1 12:48 Levofloxacin; ll1 12:48 cefixime; ll1 12:48 Codeine; ll1 12:48 ivabradine; ll1 12:48 QUETIAPINE; ll1 12:48 tolterodine; ll1 - PMHx: 12:49 CHF; ll1 - PSHx: 12:49 Hysterectomy; ll1 - Immunization history:: Flu vaccine is up to date. - Social history:: Smoking status: Patient denies any tobacco usage or history of. Screenin:50 Abuse screen: Denies threats or abuse. Denies injuries from another. Nutritional ph screening: No deficits noted. Tuberculosis screening: No symptoms or risk factors identified. Fall Risk None identified. Assessment: 14:00 General: Appears in no apparent distress. uncomfortable, Behavior is calm, cooperative, ph appropriate for age. Pain: Complains of pain in left ear, left cheek and left jaw. Neuro: Level of Consciousness is awake, alert, obeys commands, Oriented to person, place, time, situation. Cardiovascular: Capillary refill < 3 seconds in bilateral fingers Patient's skin is warm and dry. Respiratory: Airway is patent Respiratory effort is even, unlabored. Respiratory: Reports cough that is non-productive. GI: Reports nausea. EENT: Reports nasal congestion. Derm: Skin is intact, is healthy with good turgor, Skin is pink, warm \T\ dry. Musculoskeletal: Circulation, motion, and sensation intact. Range of motion: intact in all extremities. 15:00 Reassessment: Patient appears in no apparent distress at this time. Patient and/or ph family updated on plan of care and expected duration. Pain level reassessed. Patient is alert, oriented x 3, equal unlabored respirations, skin warm/dry/pink. Vital Signs: 12:49 BP 126 / 99; Pulse 90; Resp 18; Temp 99.5; Pulse Ox 98% ; Weight 57.61 kg; Height 4 ft. ll1 11 in. (149.86 cm); Pain 10/10; 14:30 BP 119 / 94; Pulse 87; Resp 16; Pulse Ox 100% on R/A; ph 15:47 BP 117 / 86; Pulse 81; Resp 18; Temp 98.0; Pulse Ox 99% on R/A; ph 12:49 Body Mass Index 25.65 (57.61 kg, 149.86 cm) ll1 ED Course: 12:33 Patient arrived in ED. ds1 12:51 Triage completed. ll1 12:51 Arm band placed on Patient placed in an exam room, on a stretcher. ll1 12:58 Darlene Perry RN is Primary Nurse. ph 13:11 Zurdo Prasad NP is PHCP. pm1 13:11 Kong Reyes MD is Attending Physician. pm1 14:05 Inserted saline lock: 20 gauge in right forearm, using aseptic technique. ph 14:15 Soft Tissue Neck Wo Contr In Process Unspecified. EDMS 15:50 Patient has correct armband on for positive identification. Bed in low position. Call ph light in reach. Side rails up X 1. Pulse ox on. NIBP on. Door closed. Noise minimized. Warm blanket given. 15:50 No provider procedures requiring assistance completed. IV discontinued, intact, ph bleeding controlled, No redness/swelling at site. Pressure dressing applied. Administered Medications: 14:08 Drug: fentaNYL (PF) 50 mcg Route: IVP; Site: right forearm; ph 15:47 Follow up: Response: No adverse reaction; Pain is decreased ph 14:08 Drug: Phenergan 12.5 mg Route: IVP; Site: right forearm; ph 15:47 Follow up: Response: No adverse reaction; Nausea is decreased ph Outcome: 15:05 Discharge ordered by MD. pm1 15:50 Discharged to home ambulatory, with significant other. ph 15:50 Condition: improved 15:50 Discharge instructions given to patient, Instructed on discharge instructions, follow up and referral plans. medication usage, Demonstrated understanding of instructions, follow-up care, medications, Prescriptions given X 3. 15:51 Patient left the ED. ph Signatures: Dispatcher [employer] EDDE Ninoska Patel ds1 Darlene Perry RN RN ph Zurdo Prasad NP [employer]S CATALOGUER pm1 Nicho Beckman RN RN [facility]
[2020-06-20 16:00] VITALS: BP 117/86; TEMP 98; O2SAT 99
== END 2020-06-20 15:51 | disposition home or self-care (01) ==
LOC: ER 12:31
DX: K04.7 Periapical abscess without sinus (principal); Z88.1 Allergy status to other antibiotic agents; Z88.3 Allergy status to other anti-infective agents; Z88.5 Allergy status to narcotic agent; Z88.6 Allergy status to analgesic agent; Z88.8 Allergy status to other drugs, medicaments and biological substances; Z91.013 Allergy to seafood; Z91.040 Latex allergy status; Z91.048 Other nonmedicinal substance allergy status
CPT/HCPCS: 70490; 96375; 96374; 99284; J2550; J3010

== ENCOUNTER 2020-07-03 22:07 | Emergency (ER) | payer MEDICAID, OTHER ==
--- OUTSIDE RECORDS SUMMARY | 2020-07-03 22:09 | XMS REPORT | Clinical Summary ---
:1980 Author Organization [facility] Address [address] [place] [address] Care Team Providers Name Role Phone Unavailable [...] mouth daily. 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
--- OUTSIDE RECORDS SUMMARY | 2020-07-03 22:09 | XMS REPORT | Clinical Summary ---
:1980 Author Organization [facility] Address [address] [place] [address] Care Team Providers Name Role Phone Yoni [...] Date Last Done Comments CERVICAL CANCER SCREENING PAP ONLY (Age 21-65) 2002 INFLUENZA VACCINE (#1) 2020 Results Not on fileafter 07/03/2019 Insurance Payer Benefit Plan / Subscriber ID Effective Dates Phone Addre ss Type Group [employer] MED[place]ID [place] [id number] 2018-Present Advance Directives For more information, please contact: [phone] Code Status Date Activated Date Inactivated Comments Full Code 08/17/2018 7:42 PM This code status was determined by: Patient
--- OUTSIDE RECORDS SUMMARY | 2020-07-03 22:11 | XMS REPORT | Continuity of Care Document ---
:1980 Author Organization [facility] t Address [address] [place] [address] Care Team Providers Name Role Phone MILTON Primary Care Physician Unavailable Siria LARSEN, Gene Attending Clinician LEONOR Attending Clinician Unavailable BADAR [...] [facility] - adverse 00:00: Medical reaction 00 [place] [facility] Clindamy Propensi Active Rash 2017-[address] [facility] [facility] ty to 10-17 [facility] - adverse 00:00: Medical reaction 00 [place] Codeine Propensi Active 2017-[address] ty to 10-17 ation, [facility] - adverse 00:00: confusion Medica l reaction 00 [place] Tolterod Propensi Active Rash 2017-[address] ine ty to 10-17 [facility] - adverse 00:00: Medical reaction 00 [place] Gabapent Propensi Active Shortness Of 2017-[address] in ty to Breath, Rash 10-17 [facility] - adverse 00:00: Medical reaction 00 [place] Iodine Propensi Active Rash 2017-[address] [facility] ty to 10-17 [facility] - Iodide adverse 00:00: Medical Containi reaction 00 [facility] s Products Latex Propensi Active Rash 2017-[address] ty to 10-17 [facility] - adverse 00:00: Medical reaction 00 [place] Morphine Propensi Active Anaphylaxis 2017-[address] ty to 10-17 [facility] - adverse 00:00: Medical reaction 00 [place] Penicill Propensi Active Anaphylaxis 2017-[address] ins ty to 10-17 [facility] - adverse 00:00: Medical reaction 00 [place] Quetiapi Propensi Active 2017-[address] ne ty to 10-17 [facility] - adverse 00:00: Medical reaction 00 [place] Sulfa Propensi Active Rash 2017-[address] (Sulfona ty to 10-17 [facility] - mide adverse 00:00: Medical Antibiot reaction 00 [facility] [place]) s Cefixime Propensi Active Rash 2017-[address] ty to 10-17 [facility] - adverse 00:00: Medical reaction 00 [place] Tramadol Propensi Active Rash 2017-[address] ty to 10-17 [facility] - adverse 00:00: Medical reaction 00 Center s Social History Social Habit Start Date Stop Date Quantity Comments Source History SDOH [facility] Alcohol Std Drinks History SDOH [place] [facility] Alcohol Binge Sex Assigned At [facility] Tobacco use and 2018-09-04 2018-09-04 Never used Beny Jerez ethodist exposure 00:00:00 00:00:00 History SDOH 2018-09-04 2018-09-04 1 [facility] Alcohol Frequency 00:00:00 00:00:00 Alcohol intake 2018-08-18 2018-08-18 Current drinker FAVIO bah [facility] - 00:00:00 00:00:00 of [facility] (finding) Smoking Status Start Date Stop Date Source Former smoker 2018-09-04 00:00:00 2018-09-04 00:00:00 [place] [facility] Medications Ordered Filled Start Stop Current Ordering [...] times a day. busPIRone 2017-09 Yes 15mg [id number] Take 15 mg [facility] (BUSPAR) 10 2-11 [id number] by mouth 3 Methodi MG tablet 19:13: 3D (three) st 27 times a day. albuterol 2017-09 Yes 1{ampul Q.[id number] Take [address] (ACCUNEB) 1-27 e} [id number] ampule by [facility] - 1.25 mg/3 13:20: 3D nebulizati Me dical mL 58 on 3 Center nebulizer (three) solution times daily. ALPRAZolam 2017-09 Yes .25mg Take 0.[address] (XANAX) 1-27 mg by [facility] - 0.25 MG 13:20: mouth Medical tablet 58 daily as Center needed for Anxiety. benztropine 2017-09 Yes 1mg Take [address] (COGENTIN) 1-27 by mouth [facility] - 1 MG tablet 13:20: daily as Me dical 58 needed. [place] fluticasone 2017-09 Yes 1{puff} QD Inhale [address] -vilanterol 1-27 puff by [facility] - (BREO 13:20: mouth via Medical ELLIPTA) 58 inhaler Center 100-25 daily. mcg/dose DsDv busPIRone 2017-09 Yes 15mg Q.5D Take [address] (BUSPAR) 15 -27 by mouth 2 Jeanie kes - MG tablet 13:20: (two) Medical 58 times Center daily. benztropine 2017-09 Yes 2mg Take [address] (COGENTIN) 1-27 by mouth 3 Berta es - 2 MG tablet 13:20: (three) Med ical 58 times Center daily as needed. ROFLUMILAST 2017-09 Yes COPD 500ug QD Take [address] ORAL 1-27 Associated mcg by [facility] - 13:20: with mouth Medical 58 Chronic daily. [place] Bronchitis digoxin 2017-09 Yes 125ug QD Take 125 [facility] (LANOXIN) 1-27 mcg by [facility] - 0.125 MG 13:20: mouth Medical tablet 58 daily. [place] venlafaxine 2017-09 Yes 150mg QD Take [address] (EFFEXOR-XR 1-27 mg by [facility] - ) 150 MG 24 13:20: mouth Medic al hr capsule 58 daily. [place] apixaban 2017-09 Yes 5mg QD Take [address] (ELIQUIS) 5 -27 by mouth Luke s - mg Tab 13:20: daily. Medical tablet 58 [place] levETIRAcet 2017-09 Yes 1000mg Q.5D Take 1,[address] am (KEPPRA) 1-27 mg by [facility]ukes - 1000 MG 13:20: mouth 2 Medical tablet 58 (two) Center times daily. levothyroxi 2017-09 Yes 125ug Take [address] ne 1-27 mcg by [facility]ukes - (SYNTHROID, 13:20: mouth Medic al LEVOTHROID) 58 Every Center 125 MCG morning on tablet an empty stomach. loratadine 2017-09 Yes 10mg QD Take [address] (CLARITIN) 1-27 by mouth [facility] - 10 mg 13:20: daily. Medical tablet 58 Center pregabalin 2017-09 Yes 25mg QD Take [address] (LYRICA) 25 -27 by mouth Luke s - MG capsule 13:20: nightly. Med ical 58 Center triamcinolo 2017-09 Yes 2{spray QD [address] ne - } by Nasal [facility]ukes - (NASACORT) 13:20: route Medica l 55 mcg 58 daily. [place] nasal inhaler esomeprazol 2017-09 Yes 40mg QD Take [address] [facility] e (NEXIUM) - by mouth [facility] - 40 MG 13:20: daily. Medical capsule 58 Center albuterol 2017-09 Yes 2{puff} Inhale [address] HFA 1-27 puffs by [facility] - (VENTOLIN 13:20: mouth via Med ical HFA) 90 58 inhaler. [place] mcg/actuati on inhaler ranolazine 2017-09 Yes 500mg Q.5D Take [address] (RANEXA) 1-27 mg by [facility] - 500 MG 12 13:20: mouth 2 Medic al hr tablet 58 (two) Center times daily. tiotropium 2017-09 Yes 18ug QD Inhale [address] (SPIRIVA) 1-27 mcg by [facility]ukes - 18 mcg 13:20: mouth via Medica l inhalation 58 inhaler Center capsule daily. topiramate 2017-09 Yes 200mg Q.5D Take [address] (TOPAMAX) 1-27 mg by [facility]ukes - 100 MG 13:20: mouth 2 Medical tablet 58 (two) Center times daily. ARIPiprazol 2017-09 Yes 10mg QD Take [address] [facility] e (ABILIFY) 1-27 by mouth Luke s - 10 MG 13:20: daily. Medical disintegrat 57 Center ing tablet ARIPiprazol 2017-09 Yes 5mg QD Take [address] e (ABILIFY) -27 by mouth Luke s - 5 MG tablet 13:20: nightly. [facility] Center Procedures This patient has no known procedures. Plan of Care Planned Activity Planned Date Details Comments Source Future Scheduled 2020-05-[address] [facility] - Test 00:00:00 (#1) [code = Medical Center INFLUENZA VACCINE (#1)] Future Scheduled 2020-04-25 INFLUENZA VACCINE [place] [facility] Test 00:00:00 [code = INFLUENZA VACCINE] Future Scheduled 2002 Screening for [place] [facility] Test 00:00:00 malignant neoplasm of cervix (procedure) [code = 534438239] Future Scheduled 2002 Screening for [facility] St Berta es - Test 00:00:00 malignant neoplasm Medical C enter of cervix (procedure) [code = 906773322] Encounters Start End Encounter Admission Attending Care Care Encounter Source Date/Time Date/Time Type Type Clinicians Facility Department ID 2020-06-26 2020-06-26 [facility] Siria [facility] [id number] 09:41:27 10:20:15 Visit Hernesto Stafford [id number] Jacki [id number] Professio [id number] nal 092 [facility] 2017-09-06 2017-09-08 Inpatient E [facility] [id number] 10:12:00 02:32:00 [facility] Results Test Description Test Time Test Comments Results Result Comments Source POCT-GLUCOSE METER 2018-08-21 10:22:00 Test Item Value Reference Range Interpretation Comme [facility] POC-GLUCOSE METER (ARNOL) (test 102 mg/dL 70-110 TESTED AT [facility] [address] [facility] code = 1538) [facility] 7703 0 MR, MRA, BRAIN, WITHOUT [id number] 09:32:00Reason for exam:->Ischemic Stroke EvaluationFINAL REPORT MRA Head CLINICAL HISTORY: Ischemic Stroke TECHNIQUE: MRA of the head utilizing 3-D yrlh-ra-zlyfna technique, with 3-D reconstructions. COMPARISON: None FINDINGS: There is no evidence of intracranial aneurysm, focal stenosis, or major branch vessel occlusion. IMPRESSION: No evidence for a major [place] proximal branch vessel occlusion. MRA Neck CLINICAL HISTORY: Ischemic Stroke TECHNIQUE: MRA of the neck utilizing 2-D and 3-D lvui-ca-tvmzdr technique, with 3-D reconstructions. COMPARISON: None FINDINGS: The carotid arteries in the neck are patent including their bifurcations. There is antegrade flow in the vertebral arteries in the neck. IMPRESSION: No evidence of hemodynamically significant stenosis in the cervical carotid or vertebral arteries by NASCET criteria. Signed: Santos Neffort Verified Date/Time: 08/21/2018 09:32:09 [place] Location: [address] Neuro [place] Room MR, MRA, NECK, WITHOUT IV [id number] 09:32:00Reason for exam:->Ischemic Stroke EvaluationFINAL REPORT MRA Head CLINICAL HISTORY: Ischemic Stroke TECHNIQUE: MRA of the head utilizing 3-D vqvl-cc-kyergt technique, with 3-D reconstructions. COMPARISON: None FINDINGS: There is no evidence of intracranial aneurysm, focal stenosis, or major branch vessel occlusion. IMPRESSION: No evidence for a major [place] proximal branch vessel occlusion. MRA Neck CLINICAL HISTORY: Ischemic Stroke TECHNIQUE: MRA of the neck utilizing 2-D and 3-D vjye-vo-onervj technique, with 3-D reconstructions. COMPARISON: None FINDINGS: The carotid arteries in the neck are patent including their bifurcations. There is antegrade flow in the vertebral arteries in the neck. IMPRESSION: No evidence of hemodynamically significant stenosis in the cervical carotid or vertebral arteries by NASCET criteria. Signed: Santos Neff Verified Date/Time: 08/21/2018 09:32:09 [place] Location: [address] Neuro [place] Room MR, BRAIN, WITHOUT [id number] 09:25:00Reason for exam:- >Ischemic Stroke EvaluationFINAL REPORT [...] Neff Verified Date/Time: 08/21/2018 09:25:25 [place] Location: [facility] C013V [facility] Room POCT-GLUCOSE [id number] 21:26:00 Test Item Value Reference Range Interpretation Comments POC-GLUCOSE METER 119 mg/dL 70-110 H TESTED AT [place] [address] ([facility]) (test code = AYLIN Rivera [facility] 1538) [address] POCT-GLUCOSE [id number] 18:03:00 Test Item Value Reference Range Interpretation Comments POC-GLUCOSE METER 119 mg/dL 70-110 H TESTED AT [place] [address] ([facility]) (test code = AYLIN Rivera [facility] 1538) [address] POCT-GLUCOSE [id number] 12:39:00 Test Item Value Reference Range Interpretation Comments POC-GLUCOSE METER 120 mg/dL 70-110 H TESTED AT [place] [address] ([facility]) (test code = AYLIN Rivera [facility] 1538) [address] RAD, CHEST, 1 VIEW, NON [id number] 12:04:00Reason for exam:->To Locate Heart Device (Pacemaker)Should [...] MDReport Verified Date/Time: 08/20/2018 12:04:06 [place] Location: [facility] Radiology [place] Room POCT-GLUCOSE [id number] 09:17:00 Test Item Value Reference Range Interpretation Comments POC-GLUCOSE METER 121 mg/dL 70-110 H TESTED AT [place] [id number] ([facility]) (test code = [facility] Miguel [facility] 1538) [address] BASIC METABOLIC [id number] 06:56:00 Test Item Value Reference Range Interpretation [...] NOT APPLICABLE FOR DIALYSIS PATIEN TS. POCT-GLUCOSE [id number] 21:09:00 Test Item Value Reference Range Interpretation Comments POC-GLUCOSE METER 109 mg/dL 70-110 TESTED AT [place] [address] ([facility]) (test code = [facility] 1538) [address] POCT-GLUCOSE [id number] 17:15:00 Test Item Value Reference Range Interpretation Comments POC-GLUCOSE METER 117 mg/dL 70-110 H TESTED AT [place] [address] ([facility]) (test code = [facility] 1538) [address] VITAMIN B12 AND [id number] 06:39:00 Test Item Value Reference Range Interpretation Comments VITAMIN B12 (BEAKER) (test code = 524 pg/mL 213-804 844) FOLATE (BEAKER) (test code = 362) 13.5 ng/mL >=7.0 BASIC METABOLIC [id number] 05:48:00 Test Item Value Reference Range Interpretation [...] S NOT APPLICABLE FOR DIALYSIS PATIEN TS. [id number] 15:42:00 Test Item Value Reference Range Interpretation Comments RPR SCREEN (BEAKER) (test code = Nonreactive Nonreactive 420) HEMOGLOBIN [id number] 09:14:00 Test Item Value Reference Range Interpretation Comments HEMOGLOBIN A1C (BEAKER) (test code = 5.3 % 4.3-6.1 368) TSH/FREE T4 IF [id number] 04:49:00 Test Item Value Reference Range Interpretation Comments THYROID STIMULATING HORMONE 3.18 uIU/mL 0.35-4.94 (BEAKER) (test code = 772) BASIC METABOLIC [id number] 04:38:00 Test Item Value Reference Range Interpretation [...] 697) EGFR (BEAKER) (test 90 mL/min/1.73 ESTIMA REIC GFR IS code = 1092) sq m NOT ACCURATE CREATININE CLEARANCE IN PREDICTING GLOMERULAR FILTRATION RATE . ESTIMATED GFR I S NOT APPLICABLE FOR DIALYSIS PATIEN TS. LIPID [id number] 04:38:00 Test Item Value Reference Range Interpretation [...] 130-159 High 160-189 Very High >=190HEPATIC FUNCTION [id number] 04:38:00 Test Item Value Reference Range Interpretation [...] (test code = 413) AFB Culture and [id number] 13:24:00Specimen/Source: Wound/PACEMAKERCollected: 09/05/2017 19:45 Status: Final Last Updated: 11/01/2017 13:24 YDK-Mvdmp-Hyptbbdqholg (Final) (Final) 09/07/17 No acid fast bacill seen on direct smear Culture Result (Final) (Final) 11/01/17 No growth of AFB at six (6) weeksFungus Culture with [id number] 12:12:00 Specimen/Source: Wound/PACEMAKERCollected: 09/05/2017 19:45 Status: Final Last Updated: 10/22/2017 12:12 Fungal Smear Result (Final) (Final) 09/06/17 No yeast or hyphae seen Culture Result (Final) (Final) 10/22/17 No fungus isolated at 6 weeksCulture, Blood [id number] 08:23:00Specimen: BloodCollected: 09/04/2017 20:30 Status: Final Last Updated: 09/10/2017 08:23 Culture Result (Final) (Final) No Growth After 5 DaysCulture, Blood [id number] 08:23:00Specimen: BloodCollected: 09/04/2017 20:15 Status: Final Last Updated: 09/10/2017 08:23 Culture Result (Final) (Final) No Growth After 5 DaysCulture, Wound [id number] 08:52:00Specimen: WoundCollected: 09/05/2017 19:45 Status: Final Last Updated: 09/08/2017 08:52 Gram Stain (Final) (Final) 09/06/17 No organisms seen, Few WBC's Culture Result (Final) (Final) 09/08/17 Anaerobic culture:No anaerobes isolated at 3 days Isolate (Final) (Final) 09/07/17Few Staph-coag positive Isolate Staph-coag positive JERMAINE (mcg/ml) Amoxicillin/Clav (AUG)<=4/2 Susceptible Ampicillin (AM) >8 Resistant Ampicillin/Sulb (A/S) <=8/4 Susceptible Cefazolin (CFZ) <=4 Susceptible Ceftriaxone (MONUMENT ERECTOR) <=4 Susceptible Chloramphenicol (C) <=8 Susceptible Ciprofloxacin (CP) <=1 Susceptible Clindamycin (CM) 0.5 Susceptible Erythromycin (E) <=0.25 Susceptible Gentamicin (GM) <=1 Susceptible Imipenem (IMP) <=4 Susceptible Levofloxacin (LEV) <=0.5 Susceptible Linezolid (LNZ) 4 Susceptible Oxacillin (OX1) 0.5 Susceptible Penicillin (P) >8 Resistant Rifampin (RA) <=1 Susceptible Tetracycline (TE) <=1 Susceptible Trimethoprim/Sulfa <=0.5/9.Susceptible (SXT) 5 Vancomycin (VA) 2 SusceptibleRenal [id number] 08:51:00 Test Item Value Reference Range Interpretation [...] National Kidney Foundation,http ://nkd ep.nih.gov CBC with [id number] 07:39:00 Test Item Value Reference Range Interpretation [...] code = ALYMPH) 1.7 K/cumm 0.5-4.6 N [place] Abs (test code = AMONO) 0.3 K/cumm 0.0-1.2 N Eos Abs (test code = AEOS) 0.29 K/cumm 0.00-0.74 N Baso Abs (test code = ABASO) 0.0 K/cumm 0.00-0.21 N Vancomycin, [id number] 12:33:00 Test Item Value Reference Range Interpretation Comments Melony Harman (test code = VANTR) 7.9 ug/mL 10.0-20.0 L Magnesium, [id number] 06:37:00 Test Item Value Reference Range Interpretation Comments Magnesium (test code = MG) 2.4 mg/dL 1.7-2.5 N Renal [id number] 06:29:00 Test Item Value Reference Range Interpretation [...] National Kidney Foundation,http ://nkd ep.nih.gov BHCG, Serum, [id number] 06:26:00 Test Item Value Reference Range Interpretation Comments Preg Qual [Se] (test code = BSHCG) Negative Negative N CBC with [id number] 06:24:00 Test Item Value Reference Range Interpretation [...] code = ALYMPH) 1.6 K/cumm 0.5-4.6 N [place] Abs (test code = AMONO) 0.4 K/cumm 0.0-1.2 N Eos Abs (test code = AEOS) 0.18 K/cumm 0.00-0.74 N Baso Abs (test code = ABASO) 0.0 K/cumm 0.00-0.21 N XR CHEST 1 [id number] 16:29:55XR CHEST 1 VIEWLOCATION: [id number]: None.INDICATION: REVIEW PICC LINE PLACEMENTDISCUSSION:AP chest and [...] = TSH) 3.44 mIU/mL 0.270-4.200 N Lipid [id number] 05:47:00 Test Item Value Reference Range Interpretation Comments Cholesterol (test 160 mg/dL 0-200 N code = CHOL) Triglycerides (test 126 mg/dL 9-200 N code = TRIG) HDL (test code = 35 mg/dL 50-60 L HDL) Chol/HDL (test code 4.6 Ratio 0.0-4.4 H = CHOLPHDL) LDL, Calculated 100 0-130 N (NOTE)RISK O F HEART (test code = LDLC) DISEASEPu blished by [place] Heart AssociationAnal yte Optim al Boderline Increased RiskC HOL <200 200-239 >240TRI G <150 150-199 >200HDL Male: >60 <40HDL Female: >60 <50 LDL < 100 130-15 9 >160 LDL NEAR OPTIMAL IS 100- 129 VLDL (test code = 25 mg/dL 5-40 N VLDL) LDL/HDL (test code = 3 LDLPHDL) Basic Metabolic [id number] 05:47:00 Test Item Value Reference Range Interpretation [...] the National Kidney Foundation,http ://nkd ep.nih.gov Magnesium, [id number] 05:47:00 Test Item Value Reference Range Interpretation Comments Magnesium (test code = MG) 2.3 mg/dL 1.7-2.5 N CBC with [id number] 05:36:00 Test Item Value Reference Range Interpretation [...] code = ALYMPH) 2.2 K/cumm 0.5-4.6 N [place] Abs (test code = AMONO) 0.3 K/cumm 0.0-1.2 N Eos Abs (test code = AEOS) 0.24 K/cumm 0.00-0.74 N Baso Abs (test code = ABASO) 0.0 K/cumm 0.00-0.21 N Partial Thromboplastin [id number] 21:26:00 Test Item Value Reference Range Interpretation Comments aPTT (test code = PTT) 29.00 seconds 24.39-37.25 N Prothrombin [id number] 21:26:00 Test Item Value Reference Range Interpretation Comments PT (test code = PT) 10.70 seconds 9.78-13.35 N INR (test code = INR) 0.95 Ratio 0.6-1.2 N Comprehensive Metabolic [id number] 21:23:00 Test Item Value Reference Range Interpretation [...] by th e MDRD study and horace aponte be interpretedwith caution.eGFR Re sult Interpretation: eGFR > or = 60 is in t he Normal RangeeGF R < 60 may mean kidney diseaseeGFR < 1 5 may mean kidney failureRange s recommended by the National Kidney Foundation,http ://nkd ep.nih.gov CBC with [id number] 21:16:00 Test Item Value Reference Range Interpretation [...] code = ALYMPH) 2.2 K/cumm 0.5-4.6 N [place] Abs (test code = AMONO) 0.4 K/cumm 0.0-1.2 N Eos Abs (test code = AEOS) 0.17 K/cumm 0.00-0.74 N Baso Abs (test code = ABASO) 0.1 K/cumm 0.00-0.21 N
--- OUTSIDE RECORDS SUMMARY | 2020-07-03 22:18 | XMS REPORT | Summary of Care ---
:[address] [facility] - Health Address [address] [place] [address] Care Team Providers Name Role Phone Joshua Reyes Insurance Hmo Yoni Mora MD Primary Care Provider Encounter Details Date Type Department Care Team Description 06/22/[address] [facility] Doctor Unassigned, No [address] [facility] [place] [address] [address] [place] [address] Allergies Active Allergy Reactions Severity Noted Date [...] as of this encounter (statuses as of 06/24/2020) Medications Medication Sig Dispensed Refills Start Date [...] as of this encounter (statuses as of 06/24/2020) Active Problems Problem Noted Date Functional neurological [...] Added automatically from request for yara arslan [id number] Abdominal pain, unspecified abdominal location 018 Overview: Added automatically from request for yara arslan [id number] Nausea and vomiting, intractability of vomiting not sp ecified, unspecified 07/13/2018 vomiting type Overview: Added automatically from request for yara arslan [id number] Non-cardiac chest pain 04/27/2018 Essential hypertension 04/27/2018 Pacemaker 04/27/2018 PAF (paroxysmal atrial fibrillation) 04/27/2018 History of cardiac pacemaker in situ 08/23/2017 Tachycardia, unspecified 06/22/2017 Elevated liver enzymes 07/23/2014 Pseudoseizure 04/15/2014 Left sided numbness 03/22/2014 Prediabetes 09/24/2013 Loss of weight 09/24/2013 Hypothyroidism 09/24/2013 Overview: ICD10 Diagnosis Term Cash Poster Utility Hypoglycemia 08/21/2013 Overview: ICD10 Diagnosis Term Cash Poster Utility documented as of this encounter (statuses as of 06/24/2020) Resolved Problems Problem Noted Date Resolved Date Stroke-like symptoms 05/10/2020 05/12/2020 Stroke 06/15/2019 05/12/2020 Metabolic syndrome X 07/23/2014 07/23/2014 documented as of this encounter (statuses as of 06/24/2020) Immunizations Name Administration Dates Next Due Pneumococcal [...] Office Visit Neurology Hernesto Beverly MD [address] [place], [place] [address]d. [place] [phone] 08/07/2020 Office Visit Oncology Iram Flores MD [address] [place], [place] [address] [phone] 09/11/2020 Nurse Visit Cardiology Visit, Adc Nurse 10/02/2020 Office Visit Cardiology Navi Hines MD [address] [place] [address] [place] [address] [phone] Health Maintenance Due Date Last Done Comments VARICELLA VACCINES (1 of 2 - 2-dose childhood series) 1982 DTaP,Tdap,and Td Vaccines (1 - Tdap) 2000 PAP SMEAR 06/21/2007 06/21/2004 PNEUMOCOCCAL 0-64 YEARS COMBINED SERIES (2 of 3 - 06/23/2018 06/23/2017 PCV13) INFLUENZA VACCINE (#1) 2020 11/16/2015 Depression Screening 12/09/2020 12/10/2019 documented as of this encounter Implants Implanted Type Area Senior Copywriter Device Shelf Expiration Model / Identifier Date Serial / Lot Tendril Mri,A Lead-11/01/[address] [employer] [id number]- [id number] / Implanted: Qty: 1 on 11/01/2017 by Imtiaz Soto MD [id number] / Description:This implant is MR Condition al and a member of a 1.5T Only MR Conditional System. Tenril Mri,V Lead-11/01/[address] [employer] [id number] / Implanted: Qty: 1 on 11/01/2017 by Imtiaz Soto MD [id number] / Description:This implant is MR Condition al and a member of a 1.5T Only MR Conditional System. Assurity Mri-11/01/[address] [employer] [id number] / Implanted: Qty: 1 on 11/01/2017 by Imtiaz Soto MD [id number] / Description:This device ids MR Condition al for a 1.5T Scanner Only. documented as of this encounter Procedures Procedure Name Priority Date/Time Associated Diagnosis Comme nts INSURANCE CORRESPONDENCE Routine 06/22/2020 12:01 AM CDT documented in this encounter Results Not on filedocumented in this encounter Insurance Payer Benefit Plan / Subscriber ID Effective Phone Address T e Group Dates LYNDSEY SOLORIO [id number] 2011-Kobe [place] Medic [place] [facility] [place] [id number] MANAGED MEDICAID [place], [place]ICA[place] documented as of this encounter
--- OUTSIDE RECORDS SUMMARY | 2020-07-03 22:19 | XMS REPORT | Summary of Care ---
:1980 Author Organization [facility] Address [address] [place] [id number] Care Team Providers Name Role Phone Joshua Reyes Insurance Hmo Yoni Mora MD Primary Care Provider Reason for Visit Reason Comments Follow-up medication refills (Routine) Status Reason Specialty Diagnoses / Procedures Referred By Lial ontact Referred To Contact Closed Neurology Diagnoses Epilepsy, unspecified, not intractable, without status epilepticus Other disorders of peripheral nervous system Diya Mora, Procedures CONSULT/REFERRAL NEUROLOGY [address] [place] [phone] Phone: Encounter Details Date Type Department Care Team Description 06/26/2020 Office Visit [facility] Hernesto Beverly teration of awareness (Primary Dx); Neurology-Nydia Silverman MD Atrial fibrillation, unspecified type [address], [address] [place] [phone] Allergies Active Allergy Reactions Severity Noted [...] as of this encounter (statuses as of 06/29/2020) Medications Medication Sig Dispensed Refills Start Date [...] tablet venlafaxine XR 150 mg daily with 06/16/2017 Active 24 hr capsule breakfast. fluticasone-vilanterol [...] as of this encounter (statuses as of 06/29/2020) Active Problems Problem Noted Date Functional neurological [...] Added automatically from request for yara mcdaniels [id number] Abdominal pain, unspecified abdominal location 018 Overview: Added automatically from request for yara mcdaniels [id number] Nausea and vomiting, intractability of vomiting not sp ecified, unspecified 07/13/2018 vomiting type Overview: Added automatically from request for yara mcdaniels [id number] Non-cardiac chest pain 04/27/2018 Essential hypertension 04/27/2018 Pacemaker 04/27/2018 PAF (paroxysmal atrial fibrillation) 04/27/2018 History of cardiac pacemaker in situ 08/23/2017 Tachycardia, unspecified 06/22/2017 Elevated liver enzymes 07/23/2014 Pseudoseizure 04/15/2014 Left sided numbness 03/22/2014 Prediabetes 09/24/2013 Loss of weight 09/24/2013 Hypothyroidism 09/24/2013 Overview: ICD10 Diagnosis Term Boxing Promoter Utility Hypoglycemia 08/21/2013 Overview: ICD10 Diagnosis Term Boxing Promoter Utility documented as of this encounter (statuses as of 06/29/2020) Resolved Problems Problem Noted Date Resolved Date Stroke-like symptoms 05/10/2020 05/12/2020 Stroke 06/15/2019 05/12/2020 Metabolic syndrome X 07/23/2014 07/23/2014 documented as of this encounter (statuses as of 06/29/2020) Immunizations Name Administration Dates Next Due Pneumococcal [...] been in contact with No / Unsure 06/26/2020 9:59 AM CDT someone who was confirmed or suspected to have Coronavirus / COVID-19? documented as of this encounter Last Filed Vital Signs Vital Sign Reading Time Taken Comments Blood Pressure 131/83 06/26/2020 10:00 AM CDT Pulse 97 06/26/2020 10:00 AM CDT Temperature - - Respiratory Rate - - Oxygen Saturation 98% 06/26/2020 10:00 AM CDT Inhaled Oxygen Concentration - - Weight 57.1 kg (125 lb 12.8 oz) 06/26/2020 10:00 AM CDT Height - - Body Mass Index 25.41 04/10/2020 10:17 AM CDT documented in this encounter Progress Notes Hernesto Beverly MD - 06/26/2020 9:40 AM CDT HISTORY OF PRESENT ILLNESS: Jenni Rivera is a 40 year old female. Chief complaint: Recent hospital admission for spell. History: The patient had been admitted to the [facility] back in April, and the history was that the patient may have had a seizure, which had awakened her . She also had left-sided weakness. MRA andMRI studies did not show any evidence of stroke. EEG had shown no epileptic discharges but there wassome diffuse slowing. Patient has been to see psychiatry, the psychiatrist had taken the patient offTopamax. Apparently when attempts were made to raise the Topamax she had had "swelling and my throatclosed". She has been placed on Tegretol 200 mg which she takes at night. She did say that at [facility] there was talk about her having an admission to the epilepsy monitoring unit but at the present time due to social considerations, the patient is not able to do that. PMH: has a past medical history of A-fib, Anemia, Anxiety, ASD (atrial septal defect), Asthma (1989), Asthma, Atrophic vaginitis, Bipolar 1 disorder (1994), CHF (congestive heart failure), COPD (chronic obstructive pulmonary disease), CVA (cerebral vascular accident), DVT (deep venous thrombosis), Endometriosis, GERD (gastroesophageal reflux disease), HIV antibody positive (2003), HTN (hypertension), hysterectomy for benign disease, Hypothyroid (2002), Infection, Menorrhagia, Migraine, Mitral valve prolapse, Nephrolithiasis, Neuropathy, Neuropathy, Seizure (1994), Sick sinus syndrome, Stroke-like symptoms (05/10/2020), TIA (transient ischemic attack), Transaminitis, and Vitamin D deficiency. Current Outpatient Medications: digoxin 125 mcg (0.125 mg) tablet, Take 1 tablet by mouth daily., Disp: 30 tablet, Rfl: 3 apixaban (ELIQUIS) 5 mg tablet, Take 1 tablet by mouth 2 (two) times daily. Indications: Recurrent DVT, Disp: 180 tablet, Rfl: 3 carvediloL 25 mg tablet, Take 1 tablet by mouth 2 (two) times daily with meals., Disp: 180 tablet, Rfl: 3 venlafaxine 75 mg tablet, Take 75 mg by mouth at bedtime., Disp: , Rfl: pantoprazole 40 mg EC tablet, Take 1 tablet by mouth daily., Disp: 30 tablet, Rfl: 0 pregabalin (LYRICA) 25 mg capsule, Take 25 mg by mouth at bedtime., Disp: , Rfl: levETIRAcetam 500 mg tablet, Take 2 tablets by mouth 2 (two) times daily., Disp: 120 tablet, Rfl: 6 atorvastatin 10 mg tablet, Take 10 mg by mouth daily., Disp: , Rfl: 1 blood sugar diagnostic (TRUETEST TEST STRIPS) strip, Use as directed. R 73.03. Check once daily, Disp: 100 Strip, Rfl: 3 lancets (TRUEPLUS LANCETS) 33 gauge [facility], Use as directed. R 73.03, Check once daily, Disp: 100Each, Rfl: 3 ALPRAZolam (XANAX) 0.25 mg tablet, Take 0.25 mg by mouth at bedtime as needed., Disp: , Rfl: fluticasone-vilanterol (BREO ELLIPTA) 100-25 mcg/dose DsDv, Inhale 1 Puff daily., Disp: , Rfl: tiotropium 18 mcg inhalation, Inhale 18 mcg daily., Disp: , Rfl: ABILIFY 10 mg tablet, TK 1 T PO QHS, Disp: , Rfl: 1 ABILIFY 5 mg tablet, TK 1 T PO D, in am, Disp: , Rfl: 1 benztropine 1 mg tablet, TK 1 T PO BID, Disp: , Rfl: 1 busPIRone 15 mg tablet, TK 1 T PO BID, Disp: , Rfl: 1 topiramate 100 mg tablet, TK 1 T PO HS, Disp: , Rfl: 1 venlafaxine XR 150 mg 24 hr capsule, daily with breakfast., Disp: , Rfl: 1 DALIRESP 500 mcg Tab, daily., Disp: , Rfl: albuterol (ACCUNEB) 1.25 mg/3 mL nebulizer solution, Use 1 Ampule as directed every 6 (six) hours as needed., Disp: , Rfl: ALBUTEROL SULFATE (PROAIR HFA INHALE), Inhale., Disp: , Rfl: loratadine (CLARITIN) 10 mg tablet, as needed., Disp: , Rfl: Family History Problem Relation Age of Onset [...] years: 0.60 Quit date: 05/09/2003 Years since quittin.1 Smokeless tobacco: Never Used Tobacco comment: quit [...] file Gets together: Not on file Attends yazidi service: Not on file Active member of [...] file Social History Narrative Not on file Vital signs: BP 131/83 (BP Location: Left arm, Patient Position: Sitting, BP CUFF SIZE: Adult Medium) | Pulse 97 | Wt 125 lb 12.8 oz (57.1 kg) | SpO2 98% | BMI 25.41 kg/m General findings: EOMI/VFFTC/PERRL. Patient is alert and oriented times 3, cooperative during the examination. Giveaway weakness noted left side, when she ambulates there is a knee but this might be related moreto me problems. the gait issue is not new but the weakness was. She did tend to rotate her right arm with arms outstretched on the left into a pronation. No tremors were observed. No reflex asymmetries. They were one plus. Light and sharp touch in general was intact and this includes the face. ASSESSMENT AND RECOMMENDATIONS: ICD-10-CM ICD-9-CM 1. Transient alteration of awareness R40.4 780.02 2. Atrial fibrillation, unspecified type I48.91 427.31 Impression: From my standpoint, I am not going to make any changes to her medications. I also noted from review of the chart that she is on anticoagulation. I did tell her to let this office know when she felt like she would have some time for the epilepsy monitoring unit evaluation and I can make that referral. Additionally she does know that she is not supposed to be driving with the spells, she would have to be spell free for at least 3 months. Creation of the note was aided by utilizing a cut/paste operation of text from a Microsoft Word template created with [employer]. The text was dictated into the template via Dragon Naturally Speaking. documented in this encounter Plan of Treatment Date Type Specialty Care Team Description 08/07/2020 Office Visit Oncology Iram Flores MD [address] [place], [place] [address] [phone] 09/11/2020 Nurse Visit Cardiology Visit, Adc Nurse 10/02/2020 Office Visit Cardiology Navi Hines MD [address] [place] [address] [place] [phone] Health Maintenance Due Date Last Done Comments VARICELLA VACCINES (1 of 2 - 2-dose childhood series) 1982 DTaP,Tdap,and Td Vaccines (1 - Tdap) 2000 PAP SMEAR 06/21/2007 06/21/2004 PNEUMOCOCCAL 0-64 YEARS COMBINED SERIES (2 of 3 - 06/23/2018 06/23/2017 PCV13) INFLUENZA VACCINE (#1) 2020 11/16/2015 Depression Screening 12/09/2020 12/10/2019 documented as of this encounter Implants Implanted Type Area Enrolled Agent Device Shelf Expiration Model / Identifier Date Serial / Lot Tendril Mri,A Lead-11/01/[address] [employer] RA- [id number] / Implanted: Qty: 1 on 11/01/2017 by Imtiaz Soto MD [id number] / Description:This implant is MR Condition al and a member of a 1.5T Only MR Conditional System. Tenril Mri,V Lead-11/01/[address] [facility] [employer] [id number] / Implanted: Qty: 1 on 11/01/2017 by Imtiaz Soto MD [id number] / Description:This implant is MR Condition al and a member of a 1.5T Only MR Conditional System. Assurity Mri-11/01/[address] [employer] [id number] / Implanted: Qty: 1 on 11/01/2017 by Imtiaz Soto MD [id number] / Description:This device ids MR Condition al for a 1.5T Scanner Only. documented as of this encounter Results Not on filedocumented in this encounter Visit Diagnoses Diagnosis Transient alteration of awareness - Prim fela Atrial fibrillation, unspecified type documented in this encounter Insurance Payer Benefit Plan / Subscriber ID Effective Phone Address T e Group Dates LYNDSEY SOLORIO [id number] 2011-Kobe [place] [id number] MA[place] MEDICAID [place], [place] documented as of this encounter
--- OUTSIDE RECORDS SUMMARY | 2020-07-03 22:19 | XMS REPORT | Summary of Care ---
:1980 Author Organization [facility] Address [address] [place] [address] Care Team Providers Name Role Phone Joshua Reyes Insurance Hmo Yoni Mora MD Primary Care Provider Reason for Visit Reason Comments Follow-up medication refills (Routine) Status Reason Specialty Diagnoses / Procedures Referred By Lila ontact Referred To Contact Closed Neurology Diagnoses Epilepsy, unspecified, not intractable, without status epilepticus Other disorders of peripheral nervous system Diya Mora, Procedures CONSULT/REFERRAL NEUROLOGY [address] [place] [phone] Phone: Encounter Details Date Type Department Care Team Description 06/26/[address] [facility] Hernesto Beverly teration of awareness (Primary Dx); Neurology-Nydia Silverman MD Atrial fibrillation, unspecified type [address], [address] [place] [phone] Allergies Active Allergy Reactions Severity Noted [...] Added automatically from request for yara mcdaniels [id number] Abdominal pain, unspecified abdominal location 018 Overview: Added automatically from request for yara mcdaniels [id number] Nausea and vomiting, intractability of vomiting not sp ecified, unspecified 07/13/2018 vomiting type Overview: Added automatically from request for yara mcdaniels [id number] Non-cardiac chest pain 04/27/2018 Essential hypertension 04/27/2018 Pacemaker 04/27/2018 PAF (paroxysmal atrial fibrillation) 04/27/2018 History of cardiac pacemaker in situ 08/23/2017 Tachycardia, unspecified 06/22/2017 Elevated liver enzymes 07/23/2014 Pseudoseizure 04/15/2014 Left sided numbness 03/22/2014 Prediabetes 09/24/2013 Loss of weight 09/24/2013 Hypothyroidism 09/24/2013 Overview: ICD10 Diagnosis Term Rack Pusher Utility Hypoglycemia 08/21/2013 Overview: ICD10 Diagnosis Term Rack Pusher Utility documented as of this encounter (statuses [...] The patient had been admitted to the [facility] back in April, and the history was [...] at night. She did say that at [facility] there was talk about her having an [...] Rfl: 3 lancets (TRUEPLUS LANCETS) 33 gauge [facility], Use as directed. R 73.03, Check once [...] file Gets together: Not on file Attends latter day service: Not on file Active member of [...] from a Microsoft Word template created with [employer] The text was dictated into the template via Dragon Naturally Speaking. documented in this encounter Plan of Treatment Date Type Specialty Care Team Description 08/07/2020 Office Visit Oncology Iram Flores MD [address] [place], [place] [address] [phone] 09/11/2020 Nurse Visit Cardiology Visit, Adc Nurse 10/02/2020 Office Visit Cardiology Navi Hines MD [address] [place] [address] [place] [phone] Health Maintenance Due Date Last Done Comments VARICELLA VACCINES (1 of 2 - 2-dose childhood series) 1982 DTaP,Tdap,and Td Vaccines (1 - Tdap) 2000 PAP SMEAR 06/21/2007 06/21/2004 PNEUMOCOCCAL 0-64 YEARS COMBINED SERIES (2 of 3 - 06/23/2018 06/23/2017 PCV13) INFLUENZA VACCINE (#1) 2020 11/16/2015 Depression Screening 12/09/2020 12/10/2019 documented as of this encounter Implants Implanted Type Area Scientific Technical Writer Device Shelf Expiration Model / Identifier Date Serial / Lot Tendril Mri,A Lead-11/01/[address] [employer] RA- [id number] / Implanted: Qty: 1 on 11/01/2017 by Imtiaz Soto MD [id number] / Description:This implant is MR Condition al and a member of a 1.5T Only MR Conditional System. Tenril Mri,V Lead-11/01/[address] [facility] [employer] [id number] / Implanted: Qty: 1 on 11/01/2017 by Imtiaz Soto MD [id number] / Description:This implant is MR Condition al and a member of a 1.5T Only MR Conditional System. Assurity Mri-11/01/[address] [employer] [id number] / Implanted: Qty: 1 on 11/01/2017 by Imtiaz Soto MD [id number] / Description:This device ids MR Condition al for a 1.5T Scanner Only. documented as of this encounter Results Not on filedocumented in this encounter Visit Diagnoses Diagnosis Transient alteration of awareness - Prim fela Atrial fibrillation, unspecified type documented in this encounter Insurance Payer Benefit Plan / Subscriber ID Effective Phone Address T e Group Dates LYNDSEY SOLORIO [id number] 2011-Kobe [employer] Medic [place] [phone] [place] MEDICA[place] documented as of this encounter
[2020-07-03 22:45] LABS: Absolute Lymphocytes (CBC) 2.2 K/uL (0.7-4.9); Basophils % 1.2 % (0-1.3); Hematocrit 40.9 % (36.0-45.0); MPV 8.1 fL (7.6-11.3); RBC Red Blood Cell Count 4.75 M/uL (3.86-4.86)
[2020-07-03 22:46] LABS: Protime INR 0.91
[2020-07-03 23:06] LABS: Barbiturates NEGATIVE (NEGATIVE); Benzodiazepines NEGATIVE (NEGATIVE); Cocaine NEGATIVE (NEGATIVE); METHAMPHETAM NEGATIVE (NEGATIVE); Methadone NEGATIVE (NEGATIVE); Opiates NEGATIVE (NEGATIVE); Phencyclidine NEGATIVE (NEGATIVE); THC Cannibis NEGATIVE (NEGATIVE)
[2020-07-03 23:08] LABS: ALT/SGPT 41 U/L (12-78); AST/SGOT 20 U/L (15-37); Albumin 3.8 g/dL (3.4-5.0); Alkaline Phosphatase 135 U/L (45-117); BUN Blood Urea Nitrogen 13 mg/dL (7-18); Bicarbonate 25 mmol/L (21-32); Bilirubin Direct < 0.1 mg/dL (0-0.2); Bilirubin Total 0.1 mg/dL (0.2-1.0); Glucose Level 120 mg/dL (74-106); Magnesium 2.4 mg/dL (1.8-2.4); NT PRO-BNP 23 pg/mL (<125); Protein, Total 8.2 g/dL (6.4-8.2); Sodium Level 141 mmol/L (136-145); Troponin (Emerg Dept Use Only) < 0.02 ng/mL (0.0-0.045)
[2020-07-03 23:20] LABS: Urine Blood TRACE (NEG); Urine Glucose NEGATIVE (NEG); Urine Protein NEGATIVE (NEG); Urine Specific Gravity 1.015 (1.005-1.030); Urine pH 7.5 (5.0-7.0)
[2020-07-03] MEDS ORDERED: ONDANSETRON 4 MG/2 ML VIAL ONE (23:21)
[2020-07-03] MEDS ORDERED: HYDROMORPHONE HCL 0.5 MG/0.5 ML INJ ONE (23:43)
--- NOTE | 2020-07-04 02:50 | EDPHYS ---
Physician Documentation [facility] Name: Jenni Draper Age: 40 yrs Sex: Female : 1980 Arrival Date: 07/03/2020 Time: 22:20 Bed 7 Private MD: ED Physician Davion Hernandez HPI: 07/03 23:07 This 40 yrs old Female presents to ER via Ambulatory with complaints of Chest mh7 Pain. 23:07 The patient or guardian reports chest pain that is located primarily in the anterior mh7 chest wall, left. The pain does not radiate. Associated signs and symptoms: Pertinent positives: cough, Pertinent negatives: abdominal pain, diaphoresis, dizziness, headache, lower extremity pain, lower extremity swelling, lightheadedness, nausea, near syncope, palpitations, recent travel, shortness of breath, syncope, vomiting. The chest pain is described as sharp. Duration: The patient or guardian reports multiple episodes, that are intermittent, that wax and wane, with no pattern. Modifying factors: The symptoms are alleviated by nothing. the symptoms are aggravated by cough. Severity of pain: At its worst the pain was moderate today, in the emergency department the pain has improved moderately. The patient has experienced similar episodes in the past, multiple times. Patient states that she started to have chest pain after using her nebulizer tonight. Patient reports non productive cough and recent diagnosis of bronchitis by her doctor. Denies any fever, sick contacts or recent travel.. MANAGER MEDIA RELATIONS: 22:33 LMP N/A - Hysterectomy bb Historical: - Allergies: 22:33 Adhesives; bb 22:33 Aspirin; bb 22:33 Bactrim; bb 22:33 Benadryl; bb 22:33 cefixime; bb 22:33 Cipro IV; bb 22:33 Clindamycin; bb 22:33 coconut oil; bb 22:33 Codeine; bb 22:33 Demerol; bb 22:33 Detrol; bb 22:33 Diltiazem; bb 22:33 Doxycycline; bb 22:33 FISH PRODUCT DERIVATIVES; bb 22:33 GABAPENTIN; bb 22:33 Iodine; bb 22:33 ivabradine; bb 22:33 Latex, Natural Rubber; bb 22:33 Levofloxacin; bb 22:33 Morphine; bb 22:33 PENICILLINS; bb 22:33 QUETIAPINE; bb 22:33 Seroquel; bb 22:33 Sulfa (Sulfonamide Antibiotics); bb 22:33 Suprax; bb 22:33 tolterodine; bb 22:33 tramadol; bb - Home Meds: 23:47 Abilify 10 mg Oral tab 1 tab once daily [Active]; albuterol sulfate 1.25 mg/3 mL Inhl lp1 nebu 3 mL 3 times per day [Active]; albuterol sulfate 1.25 mg/3 mL Inhl nebu 3 mL 3 times per day [Active]; alprazolam 0.25 mg Oral tab 1 tab nightly [Active]; atorvastatin 10 mg Oral tab 1 tab once daily [Active]; benztropine 1 mg Oral tab 1 tab 2 times per day [Active]; buspirone 15 mg Oral tab 1 tab 2 times per day [Active]; Coreg 25 mg Oral tab 1 tab 2 times per day [Active]; Daliresp 500 mcg Oral tab 1 tab once daily [Active]; digoxin 125 mcg Oral tab [Active]; Effexor XR 150 mg Oral cp24 1 cap once daily [Active]; Eliquis 5 mg Oral tab once a day [Active]; esomeprazole magnesium 40 mg Oral cpDR 1 cap once daily [Active]; Keppra 1,000 mg Oral tab 1 tab every 12 hours [Active]; loratadine 10 mg Oral tab 1 tab once daily [Active]; pregabalin 25 mg Oral 1 cap daily [Active]; ProAir HFA 90 mcg/actuation inhalation HFAA 2 puffs every 6 hours [Active]; Spiriva with HandiHaler 18 mcg inhalation CpDv 1 cap once daily [Active]; Topamax 100 mg Oral tab 2 tabs 2 times per day [Active]; venlafaxine 150 mg Oral cp24 1 cap once daily [Active]; - PMHx: 23:47 CHF; lp1 - Immunization history:: Adult Immunizations unknown. - Social history:: Smoking status: unknown. ROS: 23:07 Constitutional: Negative for fever, chills, and weight loss, Eyes: Negative for injury, mh7 pain, redness, and discharge, ENT: Negative for injury, pain, and discharge, Neck: Negative for injury, pain, and swelling, Abdomen/GI: Negative for abdominal pain, nausea, vomiting, diarrhea, and constipation, Back: Negative for injury and pain, : Negative for injury, bleeding, discharge, and swelling, MS/Extremity: Negative for injury and deformity, Skin: Negative for injury, rash, and discoloration, Neuro: Negative for headache, weakness, numbness, tingling, and seizure, Psych: Negative for depression, anxiety, suicide ideation, homicidal ideation, and hallucinations, Allergy/Immunology: Negative for hives, rash, and allergies, Endocrine: Negative for neck swelling, polydipsia, polyuria, polyphagia, and marked weight changes, Hematologic/Lymphatic: Negative for swollen nodes, abnormal bleeding, and unusual bruising. Exam: 23:07 Head/Face: Normocephalic, atraumatic. Eyes: Pupils equal round and reactive to light, mh7 extra-ocular motions intact. Lids and lashes normal. Conjunctiva and sclera are non-icteric and not injected. Cornea within normal limits. Periorbital areas with no swelling, redness, or edema. Neck: Trachea midline, no thyromegaly or masses palpated, and no cervical lymphadenopathy. Supple, full range of motion without nuchal rigidity, or vertebral point tenderness. No Meningismus. 23:07 Abdomen/GI: Soft, non-tender, with normal bowel sounds. No distension or tympany. No guarding or rebound. No evidence of tenderness throughout. Back: No spinal tenderness. No costovertebral tenderness. Full range of motion. Skin: Warm, dry with normal turgor. Normal color with no rashes, no lesions, and no evidence of cellulitis. MS/ Extremity: Pulses equal, no cyanosis. Neurovascular intact. Full, normal range of motion. Neuro: Awake and alert, GCS 15, oriented to person, place, time, and situation. Cranial nerves II-XII grossly intact. Motor strength 5/5 in all extremities. Sensory grossly intact. Cerebellar exam normal. Normal gait. Psych: Awake, alert, with orientation to person, place and time. Behavior, mood, and affect are within normal limits. 23:07 Constitutional: The patient appears in no acute distress, alert, awake, anxious. 23:07 Chest/axilla: Inspection: normal, Palpation: tenderness, that is moderate, of the anterior aspect of left upper chest and mid-sternal area, that totally reproduces the patient's complaints. 23:07 Cardiovascular: Rate: tachycardic, Rhythm: regular, Pulses: no pulse deficits are appreciated, Heart sounds: normal, normal S1and S2, Edema: is not appreciated, JVD: is not appreciated. Vital Signs: 22:25 BP 129 / 88; Pulse 113; Resp 24 S; Pulse Ox 100% on R/A; Weight 57.61 kg (R); Height 4 bb ft. 11 in. (149.86 cm) (R); Pain 10/10; 22:45 Temp 98.5(O); lp1 22:45 BP 111 / 78; Pulse 100; Resp 18; Pulse Ox 100% on R/A; lp1 23:43 BP 106 / 77; Pulse 97; Resp 19; Pulse Ox 100% ; Pain 10/10; lp1 10 00:30 BP 121 / 96; Pulse 97; Resp 18; Pulse Ox 100% on R/A; lp1 01:26 BP 124 / 85; Pulse 102; Resp 20; Pulse Ox 99% on R/A; Pain 0/10; lp1 02:30 BP 105 / 78; Pulse 100; Resp 20; Pulse Ox 99% on R/A; lp1 03:02 BP 106 / 75; Pulse 93; Resp 19; Pulse Ox 99% on R/A; lp1 07/03 22:25 Body Mass Index 25.65 (57.61 kg, 149.86 cm) bb MDM: 07/03 22:34 Patient medically screened. [facility] 07/04 02:47 Differential diagnosis: acute myocardial infarction, acute pericarditis, anxiety, [facility] coronary artery disease chest wall pain, congestive heart failure costochondritis, pericarditis, pleurisy, pneumonia, pneumothorax. Data reviewed: vital signs, nurses notes, old medical records, lab test result(s), cardiac enzymes, CBC, electrolytes, urinalysis, EKG, radiologic studies, plain films. Data interpreted: Pulse oximetry: on room air is 99 %. Interpretation: normal. Counseling: I had a detailed discussion with the patient and/or guardian regarding: the historical points, exam findings, and any diagnostic results supporting the discharge/admit diagnosis, lab results, radiology results, the need for outpatient follow up, to return to the emergency department if symptoms worsen or persist or if there are any questions or concerns that arise at home. 07/03 22:33 Order name: Basic Metabolic Panel [facility] 07/03 22:33 Order name: CBC with Diff; Complete Time: 23:28 [facility] 07/03 22:33 Order name: LFT's; Complete Time: 23:28 [facility] 07/03 22:33 Order name: Magnesium; Complete Time: 23:28 [facility] 07/03 22:33 Order name: NT PRO-BNP; Complete Time: 23:28 [facility] 07/03 22:33 Order name: PT-INR; Complete Time: 23:28 [facility] 07/03 22:33 Order name: Troponin (emerg Dept Use Only); Complete Time: 23:28 [facility] 07/03 22:33 Order name: XRAY Chest (1 view) [facility] 07/03 22:34 Order name: Basic Metabolic Panel; Complete Time: 23:28 [facility] 07/03 22:34 Order name: UDS; Complete Time: 23:28 [facility] 07/03 23:13 Order name: Urine Dipstick--Ancillary (enter results); Complete Time: 23:28 [facility] 07/04 01:46 Order name: Troponin (emerg Dept Use Only); Complete Time: 02:42 [facility] 07/03 22:33 Order name: EKG; Complete Time: 22:34 [facility] 07/03 22:33 Order name: Cardiac monitoring; Complete Time: 22:40 [facility] 07/03 22:33 Order name: EKG - Nurse/Tech; Complete Time: 22:40 [facility] 07/03 22:33 Order name: IV Saline Lock; Complete Time: 22:40 [facility] 07/03 22:33 Order name: Labs collected and sent; Complete Time: 22:40 [facility] 07/03 22:33 Order name: O2 Per Protocol; Complete Time: 22:40 [facility] 07/03 22:33 Order name: O2 Sat Monitoring; Complete Time: 22:40 [facility] 07/03 22:34 Order name: Urine Dipstick-Ancillary (obtain specimen); Complete Time: 23:09 [facility] 07/03 22:34 Order name: Urine Test (obtain specimen); Complete Time: 23:09 [facility] Administered Medications: 07/03 23:08 Drug: Zofran (Ondansetron) 4 mg Route: IVP; Site: right forearm; lp1 23:30 Follow up: Response: Nausea is decreased lp1 23:32 Drug: Dilaudid 0.5 mg {Note: RASS 0.} Route: IVP; Site: right forearm; lp1 07/04 00:00 Follow up: Response: Pain is decreased lp1 Disposition: 07/04/20 02:49 Discharged to Home. Impression: Chest pain, unspecified, Bronchitis. - Condition is Stable. - Discharge Instructions: Acute Bronchitis, Kyeh-ku-Pxge, Nonspecific Chest Pain, Vmxd-ed-Hyum. - Prescriptions for Tessalon Perles 100 mg Oral Capsule - take 1 capsule by ORAL route every 8 hours As needed; 20 capsule. - Medication Reconciliation Form, Thank You Letter, Antibiotic Education, Prescription Opioid Use form. - Follow up: Private Physician; When: 1 - 2 days; Reason: Worsening of condition, Recheck today's complaints, Continuance of care, Re-evaluation by your physician. - Problem is an acute exacerbation. - Symptoms have improved. Signatures: Dispatcher [employer] EDMS Denisse Stewart RN RN bb Mayi Rodriguez RN RN lp1 Davion Hernandez MD MD mh7 Corrections: (The following items were deleted from the chart) 03:03 02:49 07/04/2020 02:49 Discharged to Home. Impression: Chest pain, unspecified; lp1 Bronchitis. Condition is Stable. Forms are Medication Reconciliation Form, Thank You Letter, Antibiotic Education, Prescription Opioid Use. Follow up: Private Physician; When: 1 - 2 days; Reason: Worsening of condition, Recheck today's complaints, Continuance of care, Re-evaluation by your physician. Problem is an acute exacerbation. Symptoms have improved. mh7
--- NOTE | 2020-07-04 02:50 | ER ---
Nurse's Notes [facility] Name: Jenni Draper Age: 40 yrs Sex: Female : 1980 Arrival Date: 07/03/2020 Time: 22:20 Bed 7 Private MD: Diagnosis: Chest pain, unspecified;Bronchitis Presentation: 07/03 22:20 Chief complaint: Patient states: she is having chest pain 07/04 starting at approx 2000 bb tonight. Coronavirus screen: At this time, the client does not indicate any symptoms associated with coronavirus-19. Ebola Screen: No symptoms or risks identified at this time. 22:20 Method Of Arrival: Ambulatory bb 22:25 Initial Sepsis Screen: Does the patient meet any 2 criteria? No. Patient's initial bb sepsis screen is negative. Does the patient have a suspected source of infection? No. Patient's initial sepsis screen is negative. Risk Assessment: Do you want to hurt yourself or someone else? Patient reports no desire to harm self or others. Onset of symptoms was July 03, 2020. 22:25 Acuity: LYUBOV 2 bb 22:25 Acuity: LYUBOV 2 bb LONG TERM: 22:33 LMP N/A - Hysterectomy bb Historical: - Allergies: 22:33 Adhesives; bb 22:33 Aspirin; bb 22:33 Bactrim; bb 22:33 Benadryl; bb 22:33 cefixime; bb 22:33 Cipro IV; bb 22:33 Clindamycin; bb 22:33 coconut oil; bb 22:33 Codeine; bb 22:33 Demerol; bb 22:33 Detrol; bb 22:33 Diltiazem; bb 22:33 Doxycycline; bb 22:33 FISH PRODUCT DERIVATIVES; bb 22:33 GABAPENTIN; bb 22:33 Iodine; bb 22:33 ivabradine; bb 22:33 Latex, Natural Rubber; bb 22:33 Levofloxacin; bb 22:33 Morphine; bb 22:33 PENICILLINS; bb 22:33 QUETIAPINE; bb 22:33 Seroquel; bb 22:33 Sulfa (Sulfonamide Antibiotics); bb 22:33 Suprax; bb 22:33 tolterodine; bb 22:33 tramadol; bb - Home Meds: 23:47 Abilify 10 mg Oral tab 1 tab once daily [Active]; albuterol sulfate 1.25 mg/3 mL Inhl lp1 nebu 3 mL 3 times per day [Active]; albuterol sulfate 1.25 mg/3 mL Inhl nebu 3 mL 3 times per day [Active]; alprazolam 0.25 mg Oral tab 1 tab nightly [Active]; atorvastatin 10 mg Oral tab 1 tab once daily [Active]; benztropine 1 mg Oral tab 1 tab 2 times per day [Active]; buspirone 15 mg Oral tab 1 tab 2 times per day [Active]; Coreg 25 mg Oral tab 1 tab 2 times per day [Active]; Daliresp 500 mcg Oral tab 1 tab once daily [Active]; digoxin 125 mcg Oral tab [Active]; Effexor XR 150 mg Oral cp24 1 cap once daily [Active]; Eliquis 5 mg Oral tab once a day [Active]; esomeprazole magnesium 40 mg Oral cpDR 1 cap once daily [Active]; Keppra 1,000 mg Oral tab 1 tab every 12 hours [Active]; loratadine 10 mg Oral tab 1 tab once daily [Active]; pregabalin 25 mg Oral 1 cap daily [Active]; ProAir HFA 90 mcg/actuation inhalation HFAA 2 puffs every 6 hours [Active]; Spiriva with HandiHaler 18 mcg inhalation CpDv 1 cap once daily [Active]; Topamax 100 mg Oral tab 2 tabs 2 times per day [Active]; venlafaxine 150 mg Oral cp24 1 cap once daily [Active]; - PMHx: 23:47 CHF; lp1 - Immunization history:: Adult Immunizations unknown. - Social history:: Smoking status: unknown. Screenin:00 Abuse screen: Denies threats or abuse. Denies injuries from another. Nutritional lp1 screening: No deficits noted. Tuberculosis screening: No symptoms or risk factors identified. Fall Risk None identified. Assessment: 22:45 General: Appears uncomfortable, Behavior is anxious. Pain: Complains of pain in chest lp1 Pain currently is 10 out of 10 on a pain scale. Quality of pain is described as sharp, stabbing. Neuro: Level of Consciousness is awake, alert, obeys commands, Oriented to person, place, situation. Cardiovascular: Patient's skin is warm and dry. Respiratory: Airway is patent Respiratory effort is even, Respiratory pattern is hyperventilation Breath sounds are clear bilaterally. GI: No signs and/or symptoms were reported involving the gastrointestinal system. : No signs and/or symptoms were reported regarding the genitourinary system. EENT: No signs and/or symptoms were reported regarding the EENT system. Derm: Skin is intact, Skin is dry, Skin is normal. Musculoskeletal: No deficits noted. 23:00 Reassessment: Provider notified of patient vomiting; verbal order for Zofran 4mg IV x1. lp1 23:31 Reassessment: Provider notified of patient complaint of chest pain, rated 120/10 on lp1 pain scale; Verbal order for Dilaudid 0.5mg IV x1. 23:35 Reassessment: Patient appears in no apparent distress at this time. General: Appears in lp1 no apparent distress. comfortable, Behavior is calm, cooperative, appropriate for age. Respiratory: Respiratory effort is even, unlabored. Derm: Skin is pink, warm \T\ dry. 07/04 01:24 Reassessment: Patient is alert, oriented x 3, equal unlabored respirations, skin lp1 warm/dry/pink. Patient states no chest pain at this time; Reports dry cough Patient denies pain at this time. Vital Signs: 07/03 22:25 BP 129 / 88; Pulse 113; Resp 24 S; Pulse Ox 100% on R/A; Weight 57.61 kg (R); Height 4 bb ft. 11 in. (149.86 cm) (R); Pain 10/10; 22:45 Temp 98.5(O); lp1 22:45 BP 111 / 78; Pulse 100; Resp 18; Pulse Ox 100% on R/A; lp1 23:43 BP 106 / 77; Pulse 97; Resp 19; Pulse Ox 100% ; Pain 10/10; lp1 07/04 00:30 BP 121 / 96; Pulse 97; Resp 18; Pulse Ox 100% on R/A; lp1 01:26 BP 124 / 85; Pulse 102; Resp 20; Pulse Ox 99% on R/A; Pain 0/10; lp1 02:30 BP 105 / 78; Pulse 100; Resp 20; Pulse Ox 99% on R/A; lp1 03:02 BP 106 / 75; Pulse 93; Resp 19; Pulse Ox 99% on R/A; lp1 07/03 22:25 Body Mass Index 25.65 (57.61 kg, 149.86 cm) bb ED Course: 07/03 22:20 Patient arrived in ED. bb 22:21 Davion Hernandez MD is Attending Physician. [facility] 22:25 Inserted saline lock: 22 gauge in right forearm, using aseptic technique. Blood lp1 collected. 22:27 Triage completed. bb 22:29 Mayi Rodriguez, RN is Primary Nurse. lp1 22:33 Arm band placed on Patient placed in an exam room, on a stretcher, on cardiac rehab nurse, bb on pulse oximetry. EKG completed in triage. Results shown to MD. 22:45 Patient has correct armband on for positive identification. Placed in gown. Bed in low lp1 position. Call light in reach. monitoring specialist on. Pulse ox on. NIBP on. 23:25 XRAY Chest (1 view) In Process Unspecified. EDMS 07/04 03:02 No provider procedures requiring assistance completed. IV discontinued, No lp1 redness/swelling at site. Pressure dressing applied. Administered Medications: 07/03 23:08 Drug: Zofran (Ondansetron) 4 mg Route: IVP; Site: right forearm; lp1 23:30 Follow up: Response: Nausea is decreased lp1 23:32 Drug: Dilaudid 0.5 mg {Note: RASS 0.} Route: IVP; Site: right forearm; lp1 07/04 00:00 Follow up: Response: Pain is decreased lp1 Outcome: 02:49 Discharge ordered by . [facility] 03:03 Discharged to home ambulatory, with significant other. lp1 03:03 Condition: good 03:03 Discharge instructions given to patient, Instructed on discharge instructions, follow up and referral plans. medication usage, Demonstrated understanding of instructions, follow-up care, medications, Prescriptions given X 1. 03:03 Patient left the ED. lp1 Signatures: Dispatcher [employer] EDMN Denisse Stewart RN RN bb Mayi Rodriguez, LAUREL BARRAGAN 1 Davion Hernandez MD MD [facility] Corrections: (The following items were deleted from the chart) 07/03 23:44 20:25 BP 129 / 88; Pulse 113bpm; Resp 24bpm; Spontaneous; Pulse Ox 100% RA; 57.61 kg bb Reported; Height 4 ft. 11 in. Reported; BMI: 25.6; Pain 07/04; bb : 20:25 Initial Sepsis Screen: Does the patient meet any 2 criteria? No. Patient's bb initial sepsis screen is negative. Does the patient have a suspected source of infection? No. Patient's initial sepsis screen is negative. 20:25 Risk Assessment: Do you want to hurt yourself or someone else? Patient reports no bb desire to harm self or others. 20:25 Onset of symptoms was July 03, 2020 [facility] 20:25 Acuity: LYUBOV 2 [facility]
[2020-07-04 03:30] VITALS: TEMP 98.5
[2020-07-04 03:37] VITALS: O2SAT 99
[2020-07-04 03:40] VITALS: BP 106/75
--- NOTE | 2020-07-05 11:13 | EKG ---
Test Date: 2020-07-03 Test Time: 23:33:52 Editorial Director: PEBBLES MEASUREMENT RESULTS: Intervals: Rate: 96 WA: 156 QRSD: 94 QT: 348 QTc: 439 [place]: P: 67 WA: 156 QRS: 9 T: 31 INTERPRETIVE STATEMENTS: Normal sinus rhythm Incomplete right bundle branch block Borderline ECG Compared to ECG 02/10/2020 16:50:21 Incomplete right bundle-branch block now present Electronically Signed On 07-05-20 11:13:20 CDT by Nadeem Rajan
--- NOTE | 2020-07-06 10:37 | RAD REPORT ---
EXAM DESCRIPTION: RAD - Chest Single View - 07/03/2020 11:25 pm CLINICAL HISTORY: 40-year-old female with chest pain. TECHNIQUE: Single view, AP portable chest was obtained. COMPARISON: 05/23/2020. FINDINGS: Unremarkable cardiac and mediastinal silhouette. Heart size is normal. Pacemaker device ov erlies and obscures portions of the the RIGHT hemithorax with leads intact at the level of the batter y pack, stable in course and termination. Low lung volumes grossly clear without focal opacity, pneumothorax or pleural effusions. The visual ized bones are within normal limits. IMPRESSION: No acute cardiopulmonary abnormalities. Electronically signed by: Arabella Del Real MD 07/04/2020 12:29 AM CDT Due to temporary technical issues with the PACS/Fluency reporting system, reports are being signed by the in house radiologist without review as a courtesy to ensure prompt reporting. The interpreting r adiologist is fully responsible for the content of the report.
== END 2020-07-04 03:03 | disposition home or self-care (01) ==
LOC: ER 22:07
DX: J40 Bronchitis, not specified as acute or chronic (principal); I50.9 Heart failure, unspecified; Z88.0 Allergy status to penicillin; Z88.2 Allergy status to sulfonamides; Z88.4 Allergy status to anesthetic agent; Z88.5 Allergy status to narcotic agent; Z88.6 Allergy status to analgesic agent; Z88.8 Allergy status to other drugs, medicaments and biological substances; Z91.013 Allergy to seafood; Z91.018 Allergy to other foods; Z91.040 Latex allergy status; Z91.048 Other nonmedicinal substance allergy status
CPT/HCPCS: 93005; 85025; 80048; 36415; 83735; 85610; 80076; 80307 ×8; 81003; 84484 ×2; 83880; 71045; 96375; 96374; 99284; J1170; J2405

== ENCOUNTER 2020-08-18 21:57 | Observation (INO) | payer MEDICAID ==
--- OUTSIDE RECORDS SUMMARY | 2020-08-18 22:00 | XMS REPORT | Clinical Summary ---
:1980 Author Organization [facility] Address [address] [place] [address] Care Team Providers Name Role Phone Unavailable [...] INFLUENZA VACCINE 04/25/2020 Results Not on fileafter 08/18/2019 Advance Directives For more information, please contact: [phone] Type Date Recorded Patient Building Admin Explanati on Advance Directives, Living Will and Medical Power of [employer] Supervisor
--- OUTSIDE RECORDS SUMMARY | 2020-08-18 22:00 | XMS REPORT | Clinical Summary ---
:[address] [facility] Address [address] [place] [address] Care Team Providers Name Role Phone Yoni [...] VACCINE (#1) 2020 Results Not on fileafter 08/18/2019 Insurance Payer Benefit Plan / Subscriber ID Effective Dates Phone Addre ss Type Group [employer] MEDICAID [place] [id number] 2018-Present Advance Directives For more information, please contact: [phone] Code Status Date Activated Date Inactivated Comments Full Code 08/17/2018 7:42 PM This code status was determined by: Patient
--- OUTSIDE RECORDS SUMMARY | 2020-08-18 22:01 | XMS REPORT | Continuity of Care Document ---
:1980 Author Organization [facility] t Address [address] [place] [address] Care Team Providers Name Role Phone Morgan LARSEN, Yoni Primary Care Physician Donny LARSEN, K.H. Attending Clinician Visit, Nurse Attending Clinician Unavailable Madelyn LARSEN Attending Clinician LEONOR Attending Clinician Unavailable LEONOR Admitting Clinician Unavailable Problems Condition Condition Condition [...] -Trimeth adverse 00:00: Medical oprim reaction 00 [facility] Diphenhy Propensi Active Nausea And 2017-[address] dramine ty to Vomiting 10-17 [facility] - Hcl adverse 00:00: Medical reaction 00 [facility] Ciproflo Propensi Active 2017-[address] xacin ty to 10-17 aches. [facility] - adverse 00:00: Medical reaction 00 [facility] Clindamy Propensi Active Rash 2017-[address] [facility] stephan ty to 10-17 [facility] - adverse 00:00: Medical reaction 00 [facility] Codeine Propensi Active 2017-[address] ty to 10-17 ation, [facility] - adverse 00:00: confusion Medica l reaction 00 [facility] Tolterod Propensi Active Rash 2017-[address] ine ty to 10-17 [facility] - adverse 00:00: Medical reaction 00 [facility] Gabapent Propensi Active Shortness Of 2017-[address] in ty to Breath, Rash 10-17 [facility] - adverse 00:00: Medical reaction 00 [facility] Iodine Propensi Active Rash 2017-[address] And ty to 10-17 [facility] - Iodide adverse 00:00: Medical Containi reaction 00 [facility] s Products Latex Propensi Active Rash 2017-[address] ty to 10-17 [facility] - adverse 00:00: Medical reaction 00 [facility] Morphine Propensi Active Anaphylaxis 2017-[address] ty to 10-17 [facility] - adverse 00:00: Medical reaction 00 [facility] Penicill Propensi Active Anaphylaxis 2017-[address] ins ty to 10-17 [facility] - adverse 00:00: Medical reaction 00 [facility] Quetiapi Propensi Active 2017-[address] ne ty to 10-17 [facility] - adverse 00:00: Medical reaction 00 [facility] Sulfa Propensi Active Rash 2017-[address] (Sulfona ty to 10-17 [facility] - mide adverse 00:00: Medical Antibiot reaction 00 [facility]) s Cefixime Propensi Active Rash 2017-[address] ty to 10-17 [facility] - adverse 00:00: Medical reaction 00 [facility] Tramadol Propensi Active Rash 2017-[address] ty to 10-17 [facility] - adverse 00:00: Medical reaction 00 Center s Social History Social Habit Start Date Stop Date Quantity Comments [facility] St[facility] Drinks [facility] Alcohol Binge Sex Assigned [facility] Tobacco use and 2018-09-04 2018-09-04 Never used Beny Jerez ethodist exposure 00:00:00 00:00:00 History SDOH 2018-09-04 2018-09-04 1 [place] [facility] Alcohol Frequency 00:00:00 00:00:00 Alcohol intake 2018-08-18 2018-08-18 Current drinker [facility] Lena bah [facility] - 00:00:00 00:00:00 of alcohol [facility] (finding) Smoking Status Start Date Stop Date Source Former smoker 2018-09-04 00:00:00 2018-09-04 00:00:00 [facility] Medications Ordered Filled Start Stop Current Ordering [...] times a day. busPIRone 2017-09 Yes 15mg [id number] Take 15 mg [facility] (BUSPAR) 10 2-11 [id number] by mouth 3 [facility] MG tablet 19:13: 3D (three) st 27 times a day. albuterol 2017-09 Yes 1{ampul Q.[id number] Take [address] (ACCUNEB) 1-27 e} [id number] ampule by [facility] - 1.25 mg/3 13:20: [...] 13:20: daily as Me dical 58 needed. [facility] fluticasone 2017-09 Yes 1{puff} QD Inhale [address] -vilanterol 1-27 puff by [facility] - (BREO 13:20: mouth via Medical ELLIPTA) 58 inhaler Center 100-25 daily. mcg/dose DsDv busPIRone 2017-09 Yes 15mg Q.5D Take [address] (BUSPAR) 15 10-21 by mouth 2 Jeanie kes - MG [...] 13:20: with mouth Medical 58 Chronic daily. [facility] Bronchitis digoxin 2017-09 Yes 125ug QD Take 125 [facility] (LANOXIN) 1-27 mcg by [facility] - 0.125 MG 13:20: mouth Medical tablet 58 daily. [facility] venlafaxine 2017-09 Yes 150mg QD Take [address] (EFFEXOR-XR 1-27 mg by [facility] - ) 150 MG 24 13:20: mouth Medic al hr capsule 58 daily. [facility] apixaban 2017-09 Yes 5mg QD Take [address] (ELIQUIS) 5 -27 by mouth [facility] - mg Tab 13:20: daily. Medical tablet 58 [facility] levETIRAcet 2017-09 Yes 1000mg Q.5D Take 1,000 [...] route Medica l 55 mcg 58 daily. Center nasal inhaler esomeprazol 2017-09 Yes 40mg QD Take [address] e (NEXIUM) - by mouth [facility] - 40 MG 13:20: daily. Medical capsule 58 Center albuterol 2017-09 Yes 2{puff} Inhale [address] HFA 1-27 puffs by [facility] - (VENTOLIN 13:20: mouth via Med ical HFA) 90 58 inhaler. [facility] mcg/actuati on inhaler ranolazine 2017-09 Yes 500mg [...] Medical disintegrat 57 Center ing tablet ARIPiprazol 2018- Yes 5mg QD Take [address] e (ABILIFY) 1-27 by mouth [facility] - 5 MG tablet 13:20: nightly. Ri dical [address] [place] [address] Procedures This patient has no known procedures. Plan of Care Planned Activity Planned Date Details Comments Source Future Scheduled 2020-05-[address] [facility] - Test 00:00:00 (#1) [code = Medical Center INFLUENZA VACCINE (#1)] Future Scheduled 2020-04-25 INFLUENZA VACCINE [facility] Test 00:00:00 [code = INFLUENZA VACCINE] Future Scheduled 2002 Screening for [facility] Test 00:00:00 malignant neoplasm of cervix (procedure) [code = 141172648] Future Scheduled [address] [facility] - Test 00:00:00 malignant neoplasm Medical C enter of cervix (procedure) [code = 558101193] Encounters Start End Encounter Admission Attending Care Care Encounter Source Date/Time Date/Time Type Type Clinicians Facility Department ID 2020-08-10 2020-08-10 Telephone Hines [facility] [id number] 00:00:00 00:00:00 Navi Stafford [id number] [place] [id number] Profleonard [id number] [address] 2020-08-10 2020-08-10 Refill Donny [facility] [id number] 00:00:00 00:00:00 Navi Stafford [id number] [place] [id number] Professio [phone] [address] 2020-08-06 2020-08-06 Nurse Visit, [facility] [id number] 15:31:10 16:01:10 Visit Nurse Stafford [id number] Jacki [id number] Professradha [id number] [address] 2020-08-05 2020-08-05 Office Clifford [facility] [id number] 10:16:39 10:46:04 Visit Gucci tse [facility] [id number] [place] [id number] [place] [id number] Medical 059 Office Building Results Test Description Test Time Test Comments Results Result Comments Source POCT-GLUCOSE METER 2018-08-21 10:22:00 Test Item Value Reference Range Interpretation [facility] POC-GLUCOSE METER (ARNOL) (test 102 mg/dL 70-110 TESTED AT [facility] [id number] MR, MRA, BRAIN, WITHOUT [id number] 09:32:00Reason for exam:->Ischemic Stroke EvaluationFINAL REPORT MRA Head CLINICAL HISTORY: Ischemic Stroke TECHNIQUE: MRA of the head utilizing 3-D kxjf-vg-psolsw technique, with 3-D reconstructions. COMPARISON: None FINDINGS: There is no evidence of intracranial aneurysm, focal stenosis, or major branch vessel occlusion. IMPRESSION: No evidence for a major [place] proximal branch vessel occlusion. MRA Neck CLINICAL HISTORY: Ischemic Stroke TECHNIQUE: MRA of the neck utilizing 2-D and 3-D iffb-fb-cvnmyn technique, with 3-D reconstructions. COMPARISON: None FINDINGS: The carotid arteries in the neck are patent including their bifurcations. There is antegrade flow in the vertebral arteries in the neck. IMPRESSION: No evidence of hemodynamically significant stenosis in the cervical carotid or vertebral arteries by NASCET criteria. Signed: Santos Neff [facility] Verified Date/Time: 08/21/2018 09:32:09 Reading Location: [address] Neuro Reading Room MR, MRA, NECK, WITHOUT IV [id number] 09:32:00Reason for exam:->Ischemic Stroke EvaluationFINAL REPORT MRA Head CLINICAL HISTORY: Ischemic Stroke TECHNIQUE: MRA of the head utilizing 3-D uhqw-fx-lmcjev technique, with 3-D reconstructions. COMPARISON: None FINDINGS: There is no evidence of intracranial aneurysm, focal stenosis, or major branch vessel occlusion. IMPRESSION: No evidence for a major [place] proximal branch vessel occlusion. MRA Neck CLINICAL HISTORY: Ischemic Stroke TECHNIQUE: MRA of the neck utilizing 2-D and 3-D rxjh-sz-hzhvxk technique, with 3-D reconstructions. COMPARISON: None FINDINGS: The carotid arteries in the neck are patent including their bifurcations. There is antegrade flow in the vertebral arteries in the neck. IMPRESSION: No evidence of hemodynamically significant stenosis in the cervical carotid or vertebral arteries by NASCET criteria. Signed: Santos Neff Verified Date/Time: 08/21/2018 09:32:09 Reading Location: [address] Neuro Reading Room MR, BRAIN, WITHOUT [id number] 09:25:00Reason for exam:- >Ischemic Stroke EvaluationFINAL REPORT [...] Neff Verified Date/Time: 08/21/2018 09:25:25 Reading Location: [address] Neuro R eading Room POCT-GLUCOSE [id number] 21:26:00 Test Item Value Reference Range Interpretation Comments POC-GLUCOSE METER 119 mg/dL 70-110 H TESTED AT [place] [address] [facility] (test code = [facility] [employer] [facility] 1538) [address] POCT-GLUCOSE [id number] 18:03:00 Test Item Value Reference Range Interpretation Comments POC-GLUCOSE METER 119 mg/dL 70-110 H TESTED AT [place] [address] ([facility]) (test code = [facility] 1538) [address] POCT-GLUCOSE [id number] 12:39:00 Test Item Value Reference Range Interpretation Comments POC-GLUCOSE METER 120 mg/dL 70-110 H TESTED AT [facility] (test code = AYLIN Rivera [facility] 1538) [address] RAD, CHEST, 1 VIEW, NON [id number] 12:04:00Reason for exam:->To Locate Heart Device (Pacemaker)Should [...] MDReport Verified Date/Time: 08/20/2018 12:04:06 Reading Location: [facility] Radiology Reading Room POCT-GLUCOSE [id number] 09:17:00 Test Item Value Reference Range Interpretation Comments POC-GLUCOSE METER 121 mg/dL 70-110 H TESTED AT [facility] 67[address] ([facility]) (test code = AYLIN Rivera [facility] 1538) [address] BASIC METABOLIC [id number] 06:56:00 Test Item Value Reference Range Interpretation [...] NOT APPLICABLE FOR DIALYSIS PATIEN TS. POCT-GLUCOSE [id number] 21:09:00 Test Item Value Reference Range Interpretation Comments POC-GLUCOSE METER 109 mg/dL 70-110 TESTED AT [facility] 67[address] (BEAKER) (test code = [facility] [place] 1538) [address] POCT-GLUCOSE [id number] 17:15:00 Test Item Value Reference Range Interpretation Comments POC-GLUCOSE METER 117 mg/dL 70-110 H TESTED AT [facility] 67[address] (BEAKER) (test code = [facility] [place] 1538) [address] VITAMIN B12 AND [id number] 06:39:00 Test Item Value Reference Range Interpretation Comments VITAMIN B12 (BEAKER) (test code = 524 pg/mL 213-816 774) FOLATE (BEAKER) (test code = 362) 13.5 ng/mL >=7.0 BASIC METABOLIC [id number] 05:48:00 Test Item Value Reference Range Interpretation [...] S NOT APPLICABLE FOR DIALYSIS PATIEN TS. [id number] 15:42:00 Test Item Value Reference Range Interpretation Comments RPR SCREEN (BEAKER) (test code = Nonreactive Nonreactive 420) HEMOGLOBIN [id number] 09:14:00 Test Item Value Reference Range Interpretation Comments HEMOGLOBIN A1C (BEAKER) (test code = 5.3 % 4.3-6.1 368) TSH/FREE T4 IF [id number] 04:49:00 Test Item Value Reference Range Interpretation Comments THYROID STIMULATING HORMONE 3.18 uIU/mL 0.35-4.94 (BEAKER) (test code = 772) BASIC METABOLIC [id number] 04:38:00 Test Item Value Reference Range Interpretation [...] NOT APPLICABLE FOR DIALYSIS PATIEN TS. LIPID [id number] 04:38:00 Test Item Value Reference Range Interpretation [...] 130-159 High 160-189 Very High >=190HEPATIC FUNCTION [id number] 04:38:00 Test Item Value Reference Range Interpretation [...]
--- OUTSIDE RECORDS SUMMARY | 2020-08-18 22:03 | XMS REPORT | Summary of Care ---
:1980 Author Organization [facility] - Health Address [address] [place] [address] Care Team Providers Name Role Phone Joshua Reyes Insurance Hmo Yoni Mora MD Primary Care Provider Encounter Details Date Type Department Care Team Description 06/22/2020 Orders Only [facility] Doctor Unassigned, No [address] [facility] [place] [address] [address] [place] [address] Allergies Active Allergy Reactions Severity Noted Date [...] Added automatically from request for yara arslan [id number] Abdominal pain, unspecified abdominal location 018 Overview: Added automatically from request for yara arslan [id number] Nausea and vomiting, intractability of vomiting not sp ecified, unspecified 07/13/2018 vomiting type Overview: Added automatically from request for yara arslan [id number] Non-cardiac chest pain 04/27/2018 Essential hypertension 04/27/2018 Pacemaker 04/27/2018 PAF (paroxysmal atrial fibrillation) 04/27/2018 History of cardiac pacemaker in situ 08/23/2017 Tachycardia, unspecified 06/22/2017 Elevated liver enzymes 07/23/2014 Pseudoseizure 04/15/2014 Left sided numbness 03/22/2014 Prediabetes 09/24/2013 Loss of weight 09/24/2013 Hypothyroidism 09/24/2013 Overview: ICD10 Diagnosis Term 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 [place] [address] [phone] 08/07/2020 Office Visit Oncology Iram Flores MD [address] [place], [place] [address] [phone] 09/11/2020 Nurse Visit Cardiology Visit, Adc Nurse 10/02/2020 Office Visit Cardiology Navi Hines MD [address] [place] [address] [phone] Health Maintenance Due Date Last Done Comments VARICELLA VACCINES (1 of 2 - 2-dose childhood series) 1982 DTaP,Tdap,and Td Vaccines (1 - Tdap) 2000 PAP SMEAR 06/21/2007 06/21/2004 PNEUMOCOCCAL 0-64 YEARS COMBINED SERIES (2 of 3 - 06/23/2018 06/23/2017 PCV13) INFLUENZA VACCINE (#1) 2020 11/16/2015 Depression Screening 12/09/2020 12/10/2019 documented as of this encounter Implants Implanted Type Area Project Construction Manager Device Shelf Expiration Model / Identifier Date Serial / Lot Tendril Mri,A Lead-11/01/[address] [employer] RA- [id number] / Implanted: Qty: 1 on 11/01/2017 by Imtiaz Soto MD [id number] / Description:This implant is MR Condition al and a member of a 1.5T Only MR Conditional System. Tenril Mri,V Lead-11/01/[address] [employer] [id number] / Implanted: Qty: 1 on 11/01/2017 by Imtiaz Soto MD [id number] / Description:This implant is MR Condition al and a member of a 1.5T Only MR Conditional System. Assurity Mri-11/01/[address] [employer] [id number] / Implanted: Qty: 1 on 11/01/2017 by Imtiaz Soto MD [id number] / Description:This device ids MR Condition al for a 1.5T Scanner Only. documented as of this encounter Procedures Procedure Name Priority Date/Time Associated Diagnosis Comme nts INSURANCE CORRESPONDENCE Routine 06/22/2020 12:01 AM CDT documented in this encounter Results Not on filedocumented in this encounter Insurance Payer Benefit Plan / Subscriber ID Effective Phone Address T e Group Dates LYNDSEY SOLORIO [id number] 2011-Kobe PER[place] Medic [place] [facility] [id number] MANAGED MEDICAID [place]ICA[place] documented as of this encounter
--- OUTSIDE RECORDS SUMMARY | 2020-08-18 22:03 | XMS REPORT | Summary of Care ---
:1980 Author Organization [facility] Address [address] [place] [address] Care Team Providers Name Role Phone Joshua Reyes Insurance Hmo Yoni Mora MD Primary Care Provider Reason for Visit Reason Comments Follow-up medication refills (Routine) Status Reason Specialty Diagnoses / Procedures Referred By Lila ontact Referred To Contact Closed Neurology Diagnoses Epilepsy, unspecified, not intractable, without status epilepticus Other disorders of peripheral nervous system Diya Mora, Procedures CONSULT/REFERRAL NEUROLOGY [address] [place] [phone] Phone: Encounter Details Date Type Department Care Team Description 06/26/2020 Office Visit [facility] Hernesto Beverly teration of awareness (Primary Dx); Neurology-Nydia Silverman MD Atrial fibrillation, unspecified type [address], [address] [place] [phone] Allergies Active Allergy Reactions Severity Noted [...] Added automatically from request for yara mcdaniels [id number] Abdominal pain, unspecified abdominal location 018 Overview: Added automatically from request for yara mcdaniels [id number] Nausea and vomiting, intractability of vomiting not sp ecified, unspecified 07/13/2018 vomiting type Overview: Added automatically from request for yara mcdaniels [id number] Non-cardiac chest pain 04/27/2018 Essential hypertension 04/27/2018 Pacemaker 04/27/2018 PAF (paroxysmal atrial fibrillation) 04/27/2018 History of cardiac pacemaker in situ 08/23/2017 Tachycardia, unspecified 06/22/2017 Elevated liver enzymes 07/23/2014 Pseudoseizure 04/15/2014 Left sided numbness 03/22/2014 Prediabetes 09/24/2013 Loss of weight 09/24/2013 Hypothyroidism 09/24/2013 Overview: ICD10 Diagnosis Term 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 Chief complaint: Recent hospital admission for spell. History: The patient had been admitted to the [facility] back in April, and the history [...] at night. She did say that at [facility] there was talk about her having [...] Rfl: 3 lancets (TRUEPLUS LANCETS) 33 gauge [facility] Use as directed. R 73.03, Check once [...] file Gets together: Not on file Attends [employer] service: Not on file Active member of [...] from a Microsoft Word template created with [employer]. The text was dictated into the template via Dragon Naturally Speaking. documented in this encounter Plan of Treatment Date Type Specialty Care Team Description 08/07/2020 Office Visit Oncology Iram Flores MD [address] [place], [place] [address] [phone] 09/11/2020 Nurse Visit Cardiology Visit, Adc Nurse 10/02/2020 Office Visit Cardiology Navi Hines MD [address] [place] [phone] Health Maintenance Due Date Last Done Comments VARICELLA VACCINES (1 of 2 - 2-dose childhood series) 1982 DTaP,Tdap,and Td Vaccines (1 - Tdap) 2000 PAP SMEAR 06/21/2007 06/21/2004 PNEUMOCOCCAL 0-64 YEARS COMBINED SERIES (2 of 3 - 06/23/2018 06/23/2017 PCV13) INFLUENZA VACCINE (#1) 2020 11/16/2015 Depression Screening 12/09/2020 12/10/2019 documented as of this encounter Implants Implanted Type Area Draw In Hand Device Shelf Expiration Model / Identifier Date Serial / Lot Tendril Mri,A Lead-11/01/[address] [employer] RA- [id number] / Implanted: Qty: 1 on 11/01/2017 by Imtiaz Soto MD [id number] / Description:This implant is MR Condition al and a member of a 1.5T Only MR Conditional System. Tenril Mri,V Lead-11/01/[address] [employer] [id number] / Implanted: Qty: 1 on 11/01/2017 by Imtiaz Soto MD [id number] / Description:This implant is MR Condition al and a member of a 1.5T Only MR Conditional System. Assurity Mri-11/01/[address] [employer] [id number] / Implanted: Qty: 1 on 11/01/2017 by Imtiaz Soto MD [id number] / Description:This device ids MR Condition al for a 1.5T Scanner Only. documented as of this encounter Results Not on filedocumented in this encounter Visit Diagnoses Diagnosis Transient alteration of awareness - Prim fela Atrial fibrillation, unspecified type documented in this encounter Insurance Payer Benefit Plan / Subscriber ID Effective Phone Address T e Group Dates LYNDSEY SOLORIO [id number] 2011-Kobe [place] Medic [place] [id number] MA[place] MEDICAID [place] documented as of this encounter
--- OUTSIDE RECORDS SUMMARY | 2020-08-18 22:03 | XMS REPORT | Summary of Care ---
:1980 Author Organization [facility] Address [address] [place] [address] Care Team Providers Name Role Phone Joshua Reyes Insurance Hmo Yoni Mora MD Primary Care Provider Reason for Visit Reason Comments Follow-up medication refills (Routine) Status Reason Specialty Diagnoses / Procedures Referred By Lila ontact Referred To Contact Closed Neurology Diagnoses Epilepsy, unspecified, not intractable, without status epilepticus Other disorders of peripheral nervous system Diya Mora, Procedures CONSULT/REFERRAL NEUROLOGY [address] [place] [id number] Phone: Encounter Details Date Type Department Care Team Description 06/26/2020 Office Visit [facility] [place] Beverly teration of awareness (Primary Dx); Neurology-Nydia Silverman MD Atrial fibrillation, unspecified type [address], [address] [place] [phone] Allergies Active Allergy Reactions Severity Noted [...] Added automatically from request for yara mcdaniels [id number] Abdominal pain, unspecified abdominal location 018 Overview: Added automatically from request for yara mcdaniels [id number] Nausea and vomiting, intractability of vomiting not sp ecified, unspecified 07/13/2018 vomiting type Overview: Added automatically from request for yara mcdaniels [id number] Non-cardiac chest pain 04/27/2018 Essential hypertension 04/27/2018 Pacemaker 04/27/2018 PAF (paroxysmal atrial fibrillation) 04/27/2018 History of cardiac pacemaker in situ 08/23/2017 Tachycardia, unspecified 06/22/2017 Elevated liver enzymes 07/23/2014 Pseudoseizure 04/15/2014 Left sided numbness 03/22/2014 Prediabetes 09/24/2013 Loss of weight 09/24/2013 Hypothyroidism 09/24/2013 Overview: ICD10 Diagnosis 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 She did say that at [facility] there was talk about her having [...] Rfl: 3 lancets (TRUEPLUS LANCETS) 33 gauge [facility] [place], Use as directed. R 73.03, Check once [...] file Gets together: Not on file Attends mandaen service: Not on file Active member of [...] from a Microsoft Word template created with AVA.ai. The text was dictated into the template via Dragon Naturally Speaking. documented in this encounter Plan of Treatment Date Type Specialty Care Team Description 08/07/2020 Office Visit Oncology Iram Flores MD [address] [place], [place] [address] [phone] 09/11/2020 Nurse Visit Cardiology Visit, Adc Nurse 10/02/2020 Office Visit Cardiology Navi Hines MD [address] [place] [phone] Health Maintenance Due Date Last Done Comments VARICELLA VACCINES (1 of 2 - 2-dose childhood series) 1982 DTaP,Tdap,and Td Vaccines (1 - Tdap) 2000 PAP SMEAR 06/21/2007 06/21/2004 PNEUMOCOCCAL 0-64 YEARS COMBINED SERIES (2 of 3 - 06/23/2018 06/23/2017 PCV13) INFLUENZA VACCINE (#1) 2020 11/16/2015 Depression Screening 12/09/2020 12/10/2019 documented as of this encounter Implants Implanted Type Area System Admin Device Shelf Expiration Model / Identifier Date Serial / Lot Tendril Mri,A Lead-11/01/[address] [employer] RA- [id number] / Implanted: Qty: 1 on 11/01/2017 by Imtiaz Soto MD [id number] / Description:This implant is MR Condition al and a member of a 1.5T Only MR Conditional System. Tenril Mri,V Lead-11/01/[address] [employer] [id number] / Implanted: Qty: 1 on 11/01/2017 by Imtiaz Soto MD [id number] / Description:This implant is MR Condition al and a member of a 1.5T Only MR Conditional System. Assurity Mri-11/01/[address] [employer] [id number] / Implanted: Qty: 1 on 11/01/2017 by Imtiaz Soto MD [id number] / Description:This device ids MR Condition al for a 1.5T Scanner Only. documented as of this encounter Results Not on filedocumented in this encounter Visit Diagnoses Diagnosis Transient alteration of awareness - Prim fela Atrial fibrillation, unspecified type documented in this encounter Insurance Payer Benefit Plan / Subscriber ID Effective Phone Address T e Group Dates LYNDSEY SOLORIO [id number] 2011-Kobe [employer] [place] [id number] MA[place] MEDICAID [place], [place] documented as of this encounter
--- OUTSIDE RECORDS SUMMARY | 2020-08-18 22:04 | XMS REPORT | Summary of Care ---
:1980 Author Organization [facility] Address [address] [place] [address] Care Team Providers Name Role Phone Joshua Reyes Insurance Hmo Yoni Mora MD Primary Care Provider Encounter Details Date Type Department Care Team Description 07/13/2020 Orders Only [facility] Doctor Unassigned, No [address] [facility] [place] [address] [address] [place] [address] Allergies Active Allergy Reactions Severity Noted Date [...] as of this encounter (statuses as of 07/14/2020) Medications Medication Sig Dispensed Refills Start Date [...] as of this encounter (statuses as of 07/14/2020) Active Problems Problem Noted Date Functional neurological [...] Added automatically from request for yara arslan [id number] Abdominal pain, unspecified abdominal location 018 Overview: Added automatically from request for yara arslan [id number] Nausea and vomiting, intractability of vomiting not sp ecified, unspecified 07/13/2018 vomiting type Overview: Added automatically from request for yara arslan [id number] Non-cardiac chest pain 04/27/2018 Essential hypertension 04/27/2018 Pacemaker 04/27/2018 PAF (paroxysmal atrial fibrillation) 04/27/2018 History of cardiac pacemaker in situ 08/23/2017 Tachycardia, unspecified 06/22/2017 Elevated liver enzymes 07/23/2014 Pseudoseizure 04/15/2014 Left sided numbness 03/22/2014 Prediabetes 09/24/2013 Loss of weight 09/24/2013 Hypothyroidism 09/24/2013 Overview: ICD10 Diagnosis Term Vegetable Inspector Utility Hypoglycemia 08/21/2013 Overview: ICD10 Diagnosis Term Vegetable Inspector Utility documented as of this encounter (statuses as of 07/14/2020) Resolved Problems Problem Noted Date Resolved Date Stroke-like symptoms 05/10/2020 05/12/2020 Stroke 06/15/2019 05/12/2020 Metabolic syndrome X 07/23/2014 07/23/2014 documented as of this encounter (statuses as of 07/14/2020) Immunizations Name Administration Dates Next Due Pneumococcal [...] Office Visit Oncology Iram Flores MD [address] [place], [place] [address] [phone] 09/11/2020 Nurse Visit Cardiology Visit, Adc Nurse 10/02/2020 Office Visit Cardiology Navi Hines MD [address] [place] [phone] Health Maintenance Due Date Last Done Comments VARICELLA VACCINES (1 of 2 - 2-dose childhood series) 1982 DTaP,Tdap,and Td Vaccines (1 - Tdap) 2000 PAP SMEAR 06/21/2007 06/21/2004 PNEUMOCOCCAL 0-64 YEARS COMBINED SERIES (2 of 3 - 06/23/2018 06/23/2017 PCV13) INFLUENZA VACCINE (#1) 2020 11/16/2015 Depression Screening 12/09/2020 12/10/2019 documented as of this encounter Implants Implanted Type Area Captain Assistant Device Shelf Expiration Model / Identifier Date Serial / Lot Tendril Mri,A Lead-11/01/[address] [employer] RA- [id number] / Implanted: Qty: 1 on 11/01/2017 by Imtiaz Soto MD [id number] / Description:This implant is MR Condition al and a member of a 1.5T Only MR Conditional System. Tenril Mri,V Lead-11/01/[address] [employer] [id number] / Implanted: Qty: 1 on 11/01/2017 by Imtiaz Soto MD [id number] / Description:This implant is MR Condition al and a member of a 1.5T Only MR Conditional System. Assurity Mri-11/01/[address] [employer] [id number] / Implanted: Qty: 1 on 11/01/2017 by Imtiaz Soto MD [id number] / Description:This device ids MR Condition al for a 1.5T Scanner Only. documented as of this encounter Procedures Procedure Name Priority Date/Time Associated Diagnosis Comme nts EXTERNAL PROVIDER - [facility] Routine 07/13/2020 12:01 AM CARDIOLOGY CDT documented in this encounter Results Not on filedocumented in this encounter Insurance Payer Benefit Plan / Subscriber ID Effective Phone Address T e Group Dates LYNDSEY SOLORIO [id number] 2011-Kobe [place] [address] MANAGED MEDICAID [place], [place] documented as of this encounter
--- OUTSIDE RECORDS SUMMARY | 2020-08-18 22:05 | XMS REPORT | Summary of Care ---
:[address] [facility] Address [address] [place] [address] Care Team Providers Name Role Phone Joshua Reyes Insurance Hmo Yoni Mora MD Primary Care Provider Reason for Visit Reason Comments New Patient Sleep Apnea (Routine) Status Reason Specialty Diagnoses / Referred By Referred To Procedures Contact Contact Closed Pulmonary Disease Diagnoses Acute bronchitis, unspecified Presence of cardiac and vascular implants and grafts Paroxysmal atrial fibrillation Other asthma Anxiety disorder, unspecified penitentiary (current) use of anticoagulants Essential (primary) hypertension Diya Mora Strahil Hypothyroidism, unspecified Epilepsy, unspecified, not intractable, without status epilepticus Other disorders of peripheral nervous system Bronchitis, not specified as acute or chronic MD Main Vallejo MD Procedures CONSULT/REFERRAL PULMONARY [address] [facility] [address] [place] [address] Phone: Fax: Encounter Details Date Type Department Care Team Description 07/15/2020 Office Visit [facility] ADC Teofilo Bailey Obstruc tive sleep Pulmonary Clinic MD Main apnea on CPAP [address] [place] [address] (Primary Dx) [address] [place] [address] [place], [place] [phone] Allergies Active Allergy Reactions Severity Noted Date [...] as of this encounter (statuses as of 07/15/2020) Medications Medication Sig Dispensed Refills Start Date End Date Status loratadine as needed. 0 06/05/2013 Active (CLARITIN) 10 mg tablet ALBUTEROL SULFATE Inhale. 0 Ac tive (PROAIR HFA INHALE) albuterol (ACCUNEB) Use 1 Ampule as 0 Active 1.25 mg/3 mL directed every nebulizer solution 6 (six) hours as needed. DALIRESP 500 mcg daily. 0 08/25/2013 Ac tive Tab ABILIFY 10 mg TK 1 T PO QHS 06/16/2017 A ctive tablet ABILIFY 5 mg tablet TK 1 T PO D, in 06/16/2017 Active am busPIRone 15 mg TK 1 T PO BID 06/16/2017 Active tablet venlafaxine XR 150 daily with 06/16/2017 Active mg 24 hr capsule breakfast. fluticasone-vilante Inhale 1 Puff 0 Active rol (BREO ELLIPTA) daily. 100-25 mcg/dose DsDv tiotropium 18 mcg Inhale 18 mcg 0 Active inhalation daily. ALPRAZolam (XANAX) Take 0.25 mg by 0 Active 0.25 mg mouth at tabletIndications: bedtime as History of [...] 2 tabletIndications: (two) times Seizure cerebral daily. venlafaxine 75 mg Take 75 mg [...] 3 04/14/2020 Active (0.125 mg) by mouth daily. tabletIndications: History of DVT (deep vein thrombosis), Inappropriate sinus tachycardia benztropine 1 mg TK 1 T PO BID 1 06/19/2017 07/15/20 2 Discontinued tablet 0 topiramate 100 mg TK 1 T PO HS 1 06/16/2017 07/15/20 2 Discontinued tablet 0 pregabalin (LYRICA) Take 25 mg by 0 Discontinued 25 mg capsule mouth at 0 bedtime. pantoprazole 40 mg Take 1 tablet 30 tablet 0 10/31/2019 Discontinued EC by mouth daily. 0 tabletIndications: Syncope, unspecified syncope type, Ventricular tachycardia, Intercostal pain, Essential hypertension documented as of this encounter (statuses as of 07/15/2020) Active Problems Problem Noted Date Functional neurological [...] Added automatically from request for yara arslan [id number] Abdominal pain, unspecified abdominal location 018 Overview: Added automatically from request for yara arslan [id number] Nausea and vomiting, intractability of vomiting not sp ecified, unspecified 07/13/2018 vomiting type Overview: Added automatically from request for yara arslan [id number] Non-cardiac chest pain 04/27/2018 Essential hypertension 04/27/2018 Pacemaker 04/27/2018 PAF (paroxysmal atrial fibrillation) 04/27/2018 History of cardiac pacemaker in situ 08/23/2017 Tachycardia, unspecified 06/22/2017 Elevated liver enzymes 07/23/2014 Pseudoseizure 04/15/2014 Left sided numbness 03/22/2014 Prediabetes 09/24/2013 Loss of weight 09/24/2013 Hypothyroidism 09/24/2013 Overview: ICD10 Diagnosis Term 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 Control Systems 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 documented as of this encounter Last Filed Vital Signs Vital Sign Reading Time Taken Comments Blood Pressure 122/83 07/15/2020 9:09 AM CDT Pulse 91 07/15/2020 9:09 AM CDT Temperature - - Respiratory Rate 19 07/15/2020 9:09 AM CDT Oxygen Saturation 98% 07/15/2020 9:09 AM CDT Inhaled Oxygen Concentration - - Weight 56.2 kg (124 lb) 07/15/2020 9:09 AM CDT Height 149.9 cm (4' 11") 07/15/2020 9:09 AM CDT Body Mass Index 25.04 07/15/2020 9:09 AM CDT documented in this encounter Progress Notes Teofilo Bailey MD - 07/15/2020 9:00 AM CDTReason for Clinic Visit: The patient is currently under Positive Airway Pressure (PAP) treatment for Obstructive Sleep Apnea (JEFF). Chief Complaint: Obstructive Sleep Apnea History of Present Illness: The patient usually goes to bed around 8:30-9 p.m. and wakes up around 4:30 a.m. It takes 10 minuteson average to fall asleep. During the night, the patient wakes up 3 times to go to the restroom. The patient takes naps during the day. These naps usually last 30 minutes each. The patient does not suffer from irresistible sleep attacks during the day. The patient does not experience sudden loss of muscle tone when emotional or excited. The patient does not report vivid dream-like images and loss of muscle tone when falling asleep and upon awakening. [place] Sleepiness Scale score: 14 (0-24). Social History: The patient does not smoke cigarettes. The patient does not drink alcoholic beverages. Caffeinated beverages consumption: 3-4 per day. Family History: The family history is positive for snoring in blood relatives. Physical Examination: 1) Vital signs: as noted above. 2) General: the patient is pleasant, well developed, and in NAD. 3) Skin: there are no rashes, edema, abnormal pigmentation, or pathological outgrowths. 4) Head: there are no skull or hair deformities, nor pathological facial asymmetry. 5) Eyes: pupils are equal, round, and reactive to light; extraocular movements are intact, conjugate, and unrestricted, without strabismus or nystagmus. 6) ENT: oropharynx reveals low set soft palate and elongateduvula; the patient displays a good sniff through both the right and left nostril. 7) Neck: there areno distended veins or enlarged lymph nodes bilaterally. 8) Back: straight; spine - without pathological curvatures. 9) Bilateral lower extremities are without edema or discoloration. 10) Neurological -patient is alert, oriented to time, place, and self, and answers questions appropriately; there are no cranial nerves abnormalities; upper extremities movements are well coordinated, without dismetria or tremors; the gait is balanced, without ataxia, postural or dynamic abnormalities. Review of Systems: 1)Respiratory: positive for snoring and witnessed apneas; 2)Cardiovascular: positive for hypertension; 3)Endocrine/Metabolic: positive for diabetes mellitus; 4)Digestive: positive for acid reflux; 5)Urinary: positive for nocturia; 6)Skeletal: no skeletal abnormalities detected; 7)Muscular: negative for muscular abnormalities; 8)Nervous: positive for hypersomnia; 9)Integumentary: no visible or reported skin or hair abnormalities; 10)Reproductive: no reproductive abnormalities noted; 11)Immune/Lymphati c/Allergy: positive for respiratory allergies. Sleep Study Results and PAP Compliance: The patient reports having been diagnosed with Obstructive Sleep Apnea Syndrome in 2009 and having been placed on Positive Airway Pressure (PAP) treatment of 10 cm H2O. The patient reports increased daytime alertness while using the machine on an average of 4-5 hours during sleep at home. The patient tolerates the PAP mask well. No side effects of PAP treatmentare reported. Impression: The patient is benefiting from PAP treatment and needs to continue regular PAP use. Diagnosis: Obstructive Sleep Apnea Syndrome clinically well controlled by CPAP treatment G47.33 Recommendations and Patient Education: The condition of Obstructive Sleep Apnea was discussed with the patient and the possible consequences of untreated sleep apnea regarding quality of sleep, daytime alertness, and cardiovascular complications were underlined. All of patients questions were welcomed and thoroughly answered. The patient was encouraged to continue regular PAP treatment at home at 10 cm H2O. Additional time was spent discussing sleep hygiene including: regular bedtime and wake-up times; enough sleep hours; going to bed only when sleepy; using bed for the sole purpose of sleeping; avoidanceof: 1) caffeinated and alcoholic beverages, 2) strenuous cognitive activity, or 3) heavy meals in the evening. The patient reported efforts to implement these sleep hygiene measures at home and had some additional questions which were answered in detail. A follow up visit as needed was also recommended. The patient was instructed to contact us in case of any further questions, concerns, problems, or side effects of PAP treatment. documented in this encounter Plan of Treatment Date Type Specialty Care Team Description 07/16/2020 Office Visit Pulmonary Disease Tucker Guy DO [address] [place] [phone] 08/07/2020 Office Visit Oncology Iram Flores MD [address] [place], [place] [address] [phone] 09/11/2020 Nurse Visit Cardiology Visit, Debra Nurse 10/02/2020 Office Visit Cardiology Navi Hines MD [address] [place] [phone] Health Maintenance Due Date Last Done Comments VARICELLA VACCINES (1 of 2 - 2-dose childhood series) 1982 DTaP,Tdap,and Td Vaccines (1 - Tdap) 2000 PAP SMEAR 06/21/2007 06/21/2004 PNEUMOCOCCAL 0-64 YEARS COMBINED SERIES (2 of 3 - 06/23/2018 06/23/2017 PCV13) INFLUENZA VACCINE (#1) 2020 11/16/2015 Depression Screening 12/09/2020 12/10/2019 documented as of this encounter Implants Implanted Type Area 3D Modeler Device Shelf Expiration Model / Identifier Date Serial / Lot Tendril Mri,A Lead-11/01/[address] [employer] RA- [id number] / Implanted: Qty: 1 on 11/01/2017 by Imtiaz Soto MD [id number] / Description:This implant is MR Condition al and a member of a 1.5T Only MR Conditional System. Tenril Mri,V Lead-11/01/[address] [employer] [id number] / Implanted: Qty: 1 on 11/01/2017 by Imtiaz Soto MD [id number] / Description:This implant is MR Condition al and a member of a 1.5T Only MR Conditional System. Assurity Mri-11/01/[address] [employer] [id number] / Implanted: Qty: 1 on 11/01/2017 by Imtiaz Soto MD [id number] / Description:This device ids MR Condition al for a 1.5T Scanner Only. documented as of this encounter Results Not on filedocumented in this encounter Visit Diagnoses Diagnosis Obstructive sleep apnea on CPAP - Primar y Obstructive sleep apnea (adult) (pediatr ic) documented in this encounter Insurance Payer Benefit Plan / Subscriber ID Effective Phone Address T ype Group Dates LYNDSEY SOLORIO [id number] 2011-Kobe PERALTA Medic [facility] [place] [address] MA[place]GED MEDICAID [place] documented as of this encounter
--- OUTSIDE RECORDS SUMMARY | 2020-08-18 22:05 | XMS REPORT | Summary of Care ---
:1980 Author Organization [facility] [employer] Address [address] [place] [address] Care Team Providers Name Role Phone Joshua Reyes Insurance Hmo Yoni Mora MD Primary Care Provider Reason for Visit Reason Comments New Patient Sleep Apnea (Routine) Status Reason Specialty Diagnoses / Referred By Referred To Procedures Contact Contact Closed Pulmonary Disease Diagnoses Acute bronchitis, unspecified Presence of cardiac and vascular implants and grafts Paroxysmal atrial fibrillation Other asthma Anxiety disorder, unspecified nursing home (current) use of anticoagulants Essential (primary) hypertension Diya Mora Strahil Hypothyroidism, unspecified Epilepsy, unspecified, not intractable, without status epilepticus Other disorders of peripheral nervous system Bronchitis, not specified as acute or chronic MD Main [place] MD Procedures CONSULT/REFERRAL PULMONARY [address] MAYES [facility] [address] [place] [address] Phone: Fax: Encounter Details Date Type Department Care Team Description 07/15/2020 Office Visit [facility] ADC Teofilo Bailey Obstruc tive sleep Pulmonary Clinic MD Main apnea on CPAP [address] [place] [address] (Primary Dx) [address] [place] [address] [place], [place] [phone] Allergies Active Allergy Reactions Severity Noted Date [...] Added automatically from request for yara arslan [id number] Abdominal pain, unspecified abdominal location 018 Overview: Added automatically from request for yara arslan [id number] Nausea and vomiting, intractability of vomiting not sp ecified, unspecified 07/13/2018 vomiting type Overview: Added automatically from request for yara arslan [id number] Non-cardiac chest pain 04/27/2018 Essential hypertension 04/27/2018 Pacemaker 04/27/2018 PAF (paroxysmal atrial fibrillation) 04/27/2018 History of cardiac pacemaker in situ 08/23/2017 Tachycardia, unspecified 06/22/2017 Elevated liver enzymes 07/23/2014 Pseudoseizure 04/15/2014 Left sided numbness 03/22/2014 Prediabetes 09/24/2013 Loss of weight 09/24/2013 Hypothyroidism 09/24/2013 Overview: ICD10 Diagnosis Term 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 [place] Sleepiness Scale score: 14 (0-24). Social History: [...] Visit Pulmonary Disease Tucker Guy DO [address] [place] [phone] 08/07/2020 Office Visit Oncology Iram Flores MD [address] [place], [place] [address] [phone] 09/11/2020 Nurse Visit Cardiology Visit, Debra Nurse 10/02/2020 Office Visit Cardiology Navi Hines MD [address] [address] [place] [address] [place] [address] [phone] Health Maintenance Due Date Last Done Comments VARICELLA VACCINES (1 of 2 - 2-dose childhood series) 1982 DTaP,Tdap,and Td Vaccines (1 - Tdap) 2000 PAP SMEAR 06/21/2007 06/21/2004 PNEUMOCOCCAL 0-64 YEARS COMBINED SERIES (2 of 3 - 06/23/2018 06/23/2017 PCV13) INFLUENZA VACCINE (#1) 2020 11/16/2015 Depression Screening 12/09/2020 12/10/2019 documented as of this encounter Implants Implanted Type Area Rock Crushing Machine Operator Device Shelf Expiration Model / Identifier Date Serial / Lot Tendril Mri,A Lead-11/01/[address] [employer] RA- [id number] / Implanted: Qty: 1 on 11/01/2017 by Imtiaz Soto MD [id number] / Description:This implant is MR Condition al and a member of a 1.5T Only MR Conditional System. Tenril Mri,V Lead-11/01/[address] [employer] [id number] / Implanted: Qty: 1 on 11/01/2017 by Imtiaz Soto MD [id number] / Description:This implant is MR Condition al and a member of a 1.5T Only MR Conditional System. Assurity Mri-11/01/[address] [employer] [id number] / Implanted: Qty: 1 on 11/01/2017 by Imtiaz Soto MD [id number] / Description:This device ids MR Condition al for a 1.5T Scanner Only. documented as of this encounter Results Not on filedocumented in this encounter Visit Diagnoses Diagnosis Obstructive sleep apnea on CPAP - Primar y Obstructive sleep apnea (adult) (pediatr ic) documented in this encounter Insurance Payer Benefit Plan / Subscriber ID Effective Phone Address T ype Group Dates LYNDSEY SOLORIO [id number] 2011-Kobe PERALTA Medic [facility] [place] [address] MANAG[place] MEDICAID [place], [place] documented as of this encounter
--- OUTSIDE RECORDS SUMMARY | 2020-08-18 22:05 | XMS REPORT | Summary of Care ---
:1980 Author Organization [facility] Address [address] [place] [address] Care Team Providers Name Role Phone Joshua Reyes Insurance Hmo Yoni Mora MD Primary Care Provider Reason for Referral (Routine) Status Reason Specialty Diagnoses / Referred By Referred To Procedures Contact Contact New Request Pulmonary Function Diagnoses Moderate persistent asthma without complication Tucker Guy Technologist Procedures SIX MINUTE WALK Preferred Location: [facility] PFT Lab-Main [address] [address] (Routine) Status Reason Specialty Diagnoses / Referred By Referred To Procedures Contact Contact New Request Pulmonary Function Diagnoses Moderate persistent asthma without complication Tucker Guy Technologist Procedures DIAGNOSTIC PROCEDURE Preferred Location: [facility] Lab-Main DO [address] [place] [phone] Reason for Visit Reason Comments New Patient Establish Care Shortness of Breath (Routine) Status Reason Specialty Diagnoses / Referred By Referred To Procedures Contact Contact Authorized IM-PULMONARY Diagnoses Acute bronchitis, unspecified Other asthma Bronchitis, not specified as acute or chronic 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 asthma Diya Mora Shiwan, DO DISEASE / Procedures CONSULT/REFERRAL PULMONARY NEW VISIT (FIRST TIME) MD Yoni [address] [place] [address] Pulmonary Disease 3 [facility], [address] [place] [address] Phone: Fax: Encounter Details Date Type Department Care Team Description 07/16/2020 Office Visit [facility] Tucker Guy DO Moderate persistent Pulmonary Clinic 2660 [facility] asthma without 146 [facility] HANNAH Nogueira (Primary [address] [place], [place] Dx) [place] [phone] Allergies Active Allergy Reactions Severity Noted [...] as of this encounter (statuses as of 07/16/2020) Medications Medication Sig Dispensed Refills Start Date [...] 1 06/16/2017 Act corey tablet in am busPIRone 15 mg TK 1 T PO BID 1 06/16/2017 Active tablet venlafaxine XR 150 daily with 1 06/16/2017 Active mg 24 hr capsule breakfast. tiotropium 18 mcg Inhale 18 mcg 0 [...] DVT (deep vein thrombosis), Inappropriate sinus tachycardia fluticasone Inhale 1 Puff 60 Each 11 07/16/2020 Act corey furoate-vilanteroL daily. (BREO ELLIPTA) 200-25 mcg/dose DsDvIndications: Moderate persistent asthma without complication tiotropium bromide Inhale 1 Puff 4 g 11 07/16/2020 Active (SPIRIVA RESPIMAT) daily. 2.5 mcg/actuation MistIndications: Moderate persistent asthma without complication benzonatate Take 1 capsule 60 capsule 11 07/16/2020 A ctive (TESSALON PERLES) by mouth 3 100 mg (three) times capsuleIndications daily as : Moderate needed for persistent asthma Cough. without complication fluticasone-vilant Inhale 1 Puff 0 0 Discontinued florentino (BREO daily. 20 (Conditio n no ELLIPTA) 100-25 long er warrants) mcg/dose DsDv documented as of this encounter (statuses as of 07/16/2020) Active Problems Problem Noted Date Functional neurological [...] Added automatically from request for yara arslan [id number] Abdominal pain, unspecified abdominal location 018 Overview: Added automatically from request for yara arslan [id number] Nausea and vomiting, intractability of vomiting not sp ecified, unspecified 07/13/2018 vomiting type Overview: Added automatically from request for yara arslan [id number] Non-cardiac chest pain 04/27/2018 Essential hypertension 04/27/2018 Pacemaker 04/27/2018 PAF (paroxysmal atrial fibrillation) 04/27/2018 History of cardiac pacemaker in situ 08/23/2017 Tachycardia, unspecified 06/22/2017 Elevated liver enzymes 07/23/2014 Pseudoseizure 04/15/2014 Left sided numbness 03/22/2014 Prediabetes 09/24/2013 Loss of weight 09/24/2013 Hypothyroidism 09/24/2013 Overview: ICD10 Diagnosis Term Operations Specialist Utility Hypoglycemia 08/21/2013 Overview: ICD10 Diagnosis Term Operations Specialist Utility documented as of this encounter (statuses as of 07/16/2020) Resolved Problems Problem Noted Date Resolved Date Stroke-like symptoms 05/10/2020 05/12/2020 Stroke 06/15/2019 05/12/2020 Metabolic syndrome X 07/23/2014 07/23/2014 documented as of this encounter (statuses as of 07/16/2020) Immunizations Name Administration Dates Next Due Pneumococcal [...] Reading Time Taken Comments Blood Pressure 122/83 07/16/2020 2:03 PM CDT Pulse 98 07/16/2020 2:03 PM CDT Temperature - - Respiratory Rate 19 07/16/2020 2:03 PM CDT Oxygen Saturation 99% 07/16/2020 2:03 PM CDT Inhaled Oxygen Concentration - - Weight 56.2 kg (124 lb) 07/16/2020 2:03 PM CDT Height 149.9 cm (4' 11") 07/16/2020 2:03 PM CDT Body Mass Index 25.04 07/16/2020 2:03 PM CDT documented in this encounter Patient Instructions Patient InstructionsTucker Guy DO - 07/16/2020 1:40 PM CDTUse Flonase and Zyrtec for allergies documented in this encounter Progress Notes Tucker Guy DO - 07/16/2020 1:40 PM CDT [facility] Interventional Pulmonology Clinic Chief Complaint: Asthma History of Present Illness: Jenni Rivera is a 40 year old female with history of asthma and JEFF and here for evaluation. Asthma was relatively well controlled and was not having a lot of symptoms while she was on Breo. Since November, got off Breo and switched to Advair which does not seem to be helping. Also on Spiriva andDaliresp and patient does not really note a whole lot of improvement. Has been having a cough, congestion, and shortness of breath since November. Intermittent steroids and this helps temporarily. Nebulizer treatments also help for 3 hours. Shortness of breath with exertion, also wakes up at night short of breath. Past Medical History: has a past medical history of A-fib, [...] ischemic attack), Transaminitis, and Vitamin D deficiency. Past Surgical History: has a past surgical history that includes hysterectomy (07/2012); hb confirmloop recorder; pacemakers insertion (10/2017); cholecystectomy; colonoscopy (N/A, 08/02/2018); and esophagogastroduodenoscopy (N/A, 08/02/2018). Family History: family history includes Asthma in her son; Bipolar disorder in her son; DVT (deep venous thrombosis) in her father; Diabetes in her paternal grandmother; GI in her paternal grandfather;Genetic in her son; Heart in her paternal grandmother; High cholesterol in her father; Hypertension in her father; Neurological in her son; Other - see comments in her father and paternal grandmother; Stroke in her father and paternal grandmother; Thyroid in her father, mother, and paternal grandfather. Social History: reports that she quit smoking about 17 years ago. She has a 0.60 pack-year smoking history. She has never used smokeless tobacco. She reports previous drug use. She reports that she does not drink alcohol. Review of Systems: Review of Systems Constitutional: Negative. Eyes: Negative. Respiratory: Positive for cough and shortness of breath. Negative for stridor. Cardiovascular: Negative. Gastrointestinal: Negative. Genitourinary: Negative. Musculoskeletal: Negative. Skin: Negative. Neurological: Negative. Psychiatric/Behavioral: Negative. Endocrine: Endocrine negative Objective: BP 122/83 (BP Location: Left arm, Patient Position: Sitting, BP CUFF SIZE: Adult Medium) | Pulse 98 | Resp 19 | Ht 4' 11" (1.499 m) | Wt 124 lb (56.2 kg) | SpO2 99% | BMI 25.04 kg/m Physical Exam Constitutional: She is oriented to person, place, and time. She appears well- developed and well-nourished. HENT: Head: Normocephalic and atraumatic. Eyes: Conjunctivae and EOM are normal. Neck: Normal range of motion. Neck supple. Cardiovascular: Normal rate and regular rhythm. Pulmonary/Chest: Effort normal and breath sounds normal. Abdominal: Soft. Bowel sounds are normal. Musculoskeletal: Normal range of motion. Neurological: She is alert and oriented to person, place, and time. Skin: Skin is warm and dry. Psychiatric: She has a normal mood and affect. Her behavior is normal. Judgment and thought content normal. Labs/Studies: Eosinophil count 250 08/25/2019 Assessment: ICD-10-CM ICD-9-CM 1. Moderate persistent asthma without complication J45.40 493.90 Plan: 1. Patient has tried and failed Advair -- will switch to Breo, will need prior authorization 2. Patient has tried and failed the Spiriva capsule will switch to Respimat -- will need prior authorization 3. Would stop Daliresp 4. Trial of Tessalon perles 5. Obtain pulmonary function test 6. Follow up 3 months documented in this encounter Plan of Treatment Date Type Specialty Care Team Description 08/07/2020 Office Visit Oncology Iram Flores MD [address] [place], [place] [address] [phone] 09/11/2020 Nurse Visit Cardiology Visit, Adc Nurse 10/02/2020 Office Visit Cardiology Navi Hines MD [address] [phone] 11/05/2020 Office Visit Pulmonary Disease Tucker Guy DO [facility] [place] [address] 07/21/2021 Office Visit Pulmonary Disease Heena Bailey MD [address] [address] [phone] Name Type Priority Associated Diagnoses Order S chedule DIAGNOSTIC PROCEDURE PULMONARY FUNCTION Routine Moderate persi stent Ordered: Preferred Location: LAB asthma without 2019 [facility] Lab-Main complication SIX MINUTE WALK PULMONARY FUNCTION Routine Moderate persistent Ordered: Preferred Location: LAB asthma without 2019 [facility] Lab-Main complication Health Maintenance Due Date Last Done Comments VARICELLA VACCINES (1 of 2 - 2-dose childhood series) 1982 DTaP,Tdap,and Td Vaccines (1 - Tdap) 2000 PAP SMEAR 06/21/2007 06/21/2004 PNEUMOCOCCAL 0-64 YEARS COMBINED SERIES (2 of 3 - 06/23/2018 06/23/2017 PCV13) INFLUENZA VACCINE (#1) 2020 11/16/2015 Depression Screening 12/09/2020 12/10/2019 documented as of this encounter Implants Implanted Type Area Grinder Operator External Tool Device Shelf Expiration Model / Identifier Date Serial / Lot Tendril Mri,A Lead-11/01/[address] [employer] RA- [id number] / Implanted: Qty: 1 on 11/01/2017 by Imtiaz Soto MD [id number] / Description:This implant is MR Condition al and a member of a 1.5T Only MR Conditional System. Tenril Mri,V Lead-11/01/[address] [employer] [id number] / Implanted: Qty: 1 on 11/01/2017 by Imtiaz Soto MD [id number] / Description:This implant is MR Condition al and a member of a 1.5T Only MR Conditional System. Assurity Mri-11/01/[address] [employer] [id number] / Implanted: Qty: 1 on 11/01/2017 by Imtiaz Soto MD [id number] / Description:This device ids MR Condition al for a 1.5T Scanner Only. documented as of this encounter Results Not on filedocumented in this encounter Visit Diagnoses Diagnosis Moderate persistent asthma without compl ication - Primary Unspecified asthma documented in this encounter Insurance Payer Benefit Plan / Subscriber ID Effective Phone Address T [facility] Group Dates LYNDSEY SOLORIO [id number] 2011-Kobe Amaro [address]OX Medic [facility] [place] [id number] MANAGED MEDICAID [place], [place] Guarantor Name Account Type Relation to Date of Phone Billing Patient Address Jenni Rivera Personal/Family Self 1980 [address] [place], [place] (Work) [phone] documented as of this encounter
--- OUTSIDE RECORDS SUMMARY | 2020-08-18 22:06 | XMS REPORT | Summary of Care ---
:1980 Author Organization [facility] - [facility] Address [address] [place] [address] Care Team Providers Name Role Phone Joshua Reyes Insurance Hmo Yoni Mora MD Primary Care Provider Reason for Referral (Routine) Status Reason Specialty Diagnoses / Referred By Referred To Procedures Contact Contact New Request Pulmonary Function Diagnoses Moderate persistent asthma without complication Tucker Guy Technologist Procedures SIX MINUTE WALK Preferred Location: [facility] PFT Lab-Main [address] [address] (Routine) Status Reason Specialty Diagnoses / Referred By Referred To Procedures Contact Contact New Request Pulmonary Function Diagnoses Moderate persistent asthma without complication Tucker Guy Technologist Procedures DIAGNOSTIC PROCEDURE Preferred Location: [facility] PFT Lab-Main DO [address] [place] [phone] Reason for Visit Reason Comments New Patient Establish Care Shortness of Breath (Routine) Status Reason Specialty Diagnoses / Referred By Referred To Procedures Contact Contact Authorized IM-PULMONARY Diagnoses Acute bronchitis, unspecified Other asthma Bronchitis, not specified as acute or chronic SHANK BONER asthma Diya Mora Shiwan, DO DISEASE / Procedures CONSULT/REFERRAL PULMONARY NEW VISIT (FIRST TIME) MD Yoni [address] [place] [address] Pulmonary Disease 3 [facility], [address] [place] [address] Phone: Fax: Encounter Details Date Type Department Care Team Description 07/16/2020 Office Visit [facility] Tucker Guy DO Moderate persistent Pulmonary Clinic 2660 [facility] asthma without 146 [facility] HANNAH Nogueira (Primary [address] [place], [place] Dx) [place] [address] Allergies Active Allergy Reactions [...] Added automatically from request for yara arslan [id number] Abdominal pain, unspecified abdominal location 018 Overview: Added automatically from request for yara arslan [id number] Nausea and vomiting, intractability of vomiting not sp ecified, unspecified 07/13/2018 vomiting type Overview: Added automatically from request for yara arslan [id number] Non-cardiac chest pain 04/27/2018 Essential hypertension 04/27/2018 Pacemaker 04/27/2018 PAF (paroxysmal atrial fibrillation) 04/27/2018 History of cardiac pacemaker in situ 08/23/2017 Tachycardia, unspecified 06/22/2017 Elevated liver enzymes 07/23/2014 Pseudoseizure 04/15/2014 Left sided numbness 03/22/2014 Prediabetes 09/24/2013 Loss of weight 09/24/2013 Hypothyroidism 09/24/2013 Overview: ICD10 Diagnosis Term Animal Handler Utility Hypoglycemia 08/21/2013 Overview: ICD10 Diagnosis Term Animal Handler Utility documented as of this encounter (statuses [...] Guy DO - 07/16/2020 1:40 PM CDT [facility] Interventional Pulmonology Clinic Chief Complaint: Asthma [...] Office Visit Oncology Iram Flores MD [address] [place], [place] [address] [phone] 09/11/2020 Nurse Visit Cardiology Visit, Adc Nurse 10/02/2020 Office Visit Cardiology Navi Hines MD [address] [phone] 11/05/2020 Office Visit Pulmonary Disease Tucker Guy DO [facility] [place] [address] 07/21/2021 Office Visit Pulmonary Disease Heena Bailey MD [address] [address] [phone] Name Type Priority Associated Diagnoses Order S [...] of this encounter Implants Implanted Type Area Production Machine Operator Device Shelf Expiration Model / Identifier Date Serial / Lot Tendril Mri,A Lead-11/01/[address] [employer] RA- [id number] / Implanted: Qty: 1 on 11/01/2017 by Imtiaz Soto MD [id number] / Description:This implant is MR Condition al and a member of a 1.5T Only MR Conditional System. Tenril Mri,V Lead-11/01/[address] [employer] [id number] / Implanted: Qty: 1 on 11/01/2017 by Imtiaz Soto MD [id number] / Description:This implant is MR Condition al and a member of a 1.5T Only MR Conditional System. Assurity Mri-11/01/[address] [employer] [id number] / Implanted: Qty: 1 on 11/01/2017 by Imtiaz Soto MD [id number] / Description:This device ids MR Condition al for a 1.5T Scanner Only. documented as of this encounter Results Not on filedocumented in this encounter Visit Diagnoses Diagnosis Moderate persistent asthma without compl ication - Primary Unspecified asthma documented in this encounter Insurance Payer Benefit Plan / Subscriber ID Effective Phone Address T [facility] Group Dates LYNDSEY SOLORIO [id number] 2011-Kobe Amaro [address] Medic [facility] [place] [address] MA[place] MED[place] (Work) [phone] documented as of this encounter
--- OUTSIDE RECORDS SUMMARY | 2020-08-18 22:07 | XMS REPORT | Summary of Care ---
:1980 Author Organization [facility] Address [address] [place] [address] Care Team Providers Name Role Phone Joshua Reyes Insurance Hmo Yoni Mora MD Primary Care Provider Reason for Visit Reason Comments Rx Concern/Question Encounter Details Date Type Department Care Team Description 07/21/2020 Telephone [facility] [id number] ADC Tucker Guy DO Rx Concern/Question Pulmonary Clinic [address] , [address] [address] [phone] Allergies Active Allergy Reactions Severity Noted Date [...] as of this encounter (statuses as of 07/22/2020) Medications Medication Sig Dispensed Refills Start Date [...] PO D, in 1 06/16/2017 Active am busPIRone 15 mg tablet TK 1 T PO BID 1 06/16/2017 Active venlafaxine XR 150 mg daily with 1 06/16/2017 Active 24 hr capsule breakfast. tiotropium 18 mcg [...] mouth 2 (two) Seizure cerebral times daily. venlafaxine 75 mg Take 75 mg [...] 4 g 11 07/16/2020 Active (SPIRIVA RESPIMAT) 2.5 daily. mcg/actuation MistIndications: Moderate persistent asthma without complication benzonatate (TESSALON Take 1 capsule by 60 capsule 11 0 Active PERLES) 100 mg mouth 3 (three) capsuleIndications: times daily as Moderate persistent needed for Cough. asthma without complication documented as of this encounter (statuses as of 07/22/2020) Active Problems Problem Noted Date Functional neurological [...] Added automatically from request for yara arslan [id number] Abdominal pain, unspecified abdominal location 018 Overview: Added automatically from request for yara arslan [id number] Nausea and vomiting, intractability of vomiting not sp ecified, unspecified 07/13/2018 vomiting type Overview: Added automatically from request for yara mcdaniels [id number] Non-cardiac chest pain 04/27/2018 Essential hypertension 04/27/2018 Pacemaker 04/27/2018 PAF (paroxysmal atrial fibrillation) 04/27/2018 History of cardiac pacemaker in situ 08/23/2017 Tachycardia, unspecified 06/22/2017 Elevated liver enzymes 07/23/2014 Pseudoseizure 04/15/2014 Left sided numbness 03/22/2014 Prediabetes 09/24/2013 Loss of weight 09/24/2013 Hypothyroidism 09/24/2013 Overview: ICD10 Diagnosis Term Investment Sales Assistant Utility Hypoglycemia 08/21/2013 Overview: ICD10 Diagnosis Term Investment Sales Assistant Utility documented as of this encounter (statuses as of 07/22/2020) Resolved Problems Problem Noted Date Resolved Date Stroke-like symptoms 05/10/2020 05/12/2020 Stroke 06/15/2019 05/12/2020 Metabolic syndrome X 07/23/2014 07/23/2014 documented as of this encounter (statuses as of 07/22/2020) Immunizations Name Administration Dates Next Due Pneumococcal [...] this encounter Miscellaneous Notes Telephone Encounter - Tucker Guy DO - 07/22/2020 10:17 AM CDTPatient is being treated for asthma. We would like to start at initial dose prescribed. Thanks. elephone Encounter - Hector Clarke - 07/22/2020 9:32 AM CDTPharmacy callingin regards to below encounter. Pharmacy states that it is 2 puffs daily. elephone Encounter - Tracey Denney MA - 07/22/2020 9:29 AM CDTPharmacy stated that the Spiriva is usually prescribed for four times a day and Dr. Guy ordered forit to be 1 puff daily. Pharmacy wanted clarification/confirmation on instructions. elephone Encounter - Hector Clarke - 07/21/2020 2:06 [address] [facility] pharmacy calling needing clarification on medication Spiriva. Please advise. documented in this encounter Plan of Treatment Date Type Specialty Care Team Description 07/22/2020 Laboratory Only Clinical Medical Only, [facility] Test Laboratory 07/23/2020 Pugger Helper Visit Pulmonary Function Johan Day Technologist [address] [facility] [address] [place], [place] [address] 08/07/2020 Office Visit Oncology Iram Flores MD [address] [place], [place] [address] [phone] 09/11/2020 Nurse Visit Cardiology Visit, Adc Nurse 10/02/2020 Office Visit Cardiology Navi Hines MD [address] [place] [phone] 11/05/2020 Office Visit Pulmonary Disease Tucker Guy DO 2660 [place] [address] 07/21/2021 Office Visit Pulmonary Disease Teofilo Bailey MD [address] [address] [phone] Health Maintenance Due Date Last Done Comments VARICELLA VACCINES (1 of 2 - 2-dose childhood series) 1982 DTaP,Tdap,and Td Vaccines (1 - Tdap) 2000 PAP SMEAR 06/21/2007 06/21/2004 PNEUMOCOCCAL 0-64 YEARS COMBINED SERIES (2 of 3 - 06/23/2018 06/23/2017 PCV13) INFLUENZA VACCINE (#1) 2020 11/16/2015 Depression Screening 12/09/2020 12/10/2019 documented as of this encounter Implants Implanted Type Area Associate Professor Of Forestry Device Shelf Expiration Model / Identifier Date Serial / Lot Tendril Mri,A Lead-11/01/[address] [employer] RA- [id number] / Implanted: Qty: 1 on 11/01/2017 by Imtiaz Soto MD [id number] / Description:This implant is MR Condition al and a member of a 1.5T Only MR Conditional System. Tenril Mri,V Lead-11/01/[address] [facility] [employer] [id number] / Implanted: Qty: 1 on 11/01/2017 by Imtiaz Soto MD [id number] / Description:This implant is MR Condition al and a member of a 1.5T Only MR Conditional System. Assurity Mri-11/01/[address] [employer] [id number] / Implanted: Qty: 1 on 11/01/2017 by Imtiaz Soto MD [id number] / Description:This device ids MR Condition al for a 1.5T Scanner Only. documented as of this encounter Results Not on filedocumented in this encounter Insurance Payer Benefit Plan / Subscriber ID Effective Phone Address T armanie Group Dates LYNDSEY SOLORIO [id number] 2011-Kobe Pradhan BOX [place] [facility] [place] [address] MA[place] MEDICAID [place], [place] documented as of this encounter
--- OUTSIDE RECORDS SUMMARY | 2020-08-18 22:07 | XMS REPORT | Summary of Care ---
:1980 Author Organization [facility] Address [address] [place] [address] Care Team Providers Name Role Phone Joshua Reyes Insurance Hmo Yoni Mora MD Primary Care Provider Reason for Visit Reason Comments Rx Concern/Question Encounter Details Date Type Department Care Team Description 07/21/2020 Telephone [facility] Gaming for Good ADC Tucker Guy DO Rx Concern/Question Pulmonary Clinic [address] , [address] [address] [phone] Allergies Active Allergy Reactions Severity Noted Date [...] Added automatically from request for yara arslan [id number] Abdominal pain, unspecified abdominal location 018 Overview: Added automatically from request for yara arslan [id number] Nausea and vomiting, intractability of vomiting not sp ecified, unspecified 07/13/2018 vomiting type Overview: Added automatically from request for yara mcdaniels [id number] Non-cardiac chest pain 04/27/2018 Essential hypertension 04/27/2018 Pacemaker 04/27/2018 PAF (paroxysmal atrial fibrillation) 04/27/2018 History of cardiac pacemaker in situ 08/23/2017 Tachycardia, unspecified 06/22/2017 Elevated liver enzymes 07/23/2014 Pseudoseizure 04/15/2014 Left sided numbness 03/22/2014 Prediabetes 09/24/2013 Loss of weight 09/24/2013 Hypothyroidism 09/24/2013 Overview: ICD10 Diagnosis Term Volunteer Coordinator Utility Hypoglycemia 08/21/2013 Overview: ICD10 Diagnosis Term Volunteer Coordinator Utility documented as of this encounter [...] Description 07/22/2020 Laboratory Only Clinical Medical Only, [facility] Test Laboratory 07/23/2020 Bow Rehairer Visit Pulmonary Function Johan Day Technologist [address] [place], [place] [address] 08/07/2020 Office Visit Oncology Iram Flores MD [address] [place], [place] [address] [phone] 09/11/2020 Nurse Visit Cardiology Visit, Adc Nurse 10/02/2020 Office Visit Cardiology Navi Hines MD [address] [place] [phone] 11/05/2020 Office Visit Pulmonary Disease Tucker Guy DO [address] [place] [address] 07/21/2021 Office Visit Pulmonary Disease Teofilo Bailey MD [address] [address] [phone] Health Maintenance Due Date Last Done Comments VARICELLA VACCINES (1 of 2 - 2-dose childhood series) 1982 DTaP,Tdap,and Td Vaccines (1 - Tdap) 2000 PAP SMEAR 06/21/2007 06/21/2004 PNEUMOCOCCAL 0-64 YEARS COMBINED SERIES (2 of 3 - 06/23/2018 06/23/2017 PCV13) INFLUENZA VACCINE (#1) 2020 11/16/2015 Depression Screening 12/09/2020 12/10/2019 documented as of this encounter Implants Implanted Type Area Business Strategy Manager Device Shelf Expiration Model / Identifier Date Serial / Lot Tendril Mri,A Lead-11/01/[address] [facility] [employer] RA- [id number] / Implanted: Qty: 1 on 11/01/2017 by Imtiaz Soto MD [id number] / Description:This implant is MR Condition al and a member of a 1.5T Only MR Conditional System. Tenril Mri,V Lead-11/01/[address] [employer] [id number] / Implanted: Qty: 1 on 11/01/2017 by Imtiaz Soto MD [id number] / Description:This implant is MR Condition al and a member of a 1.5T Only MR Conditional System. Assurity Mri-11/01/[address] [employer] [id number] / Implanted: Qty: 1 on 11/01/2017 by Imtiaz Soto MD [id number] / Description:This device ids MR Condition al for a 1.5T Scanner Only. documented as of this encounter Results Not on filedocumented in this encounter Insurance Payer Benefit Plan / Subscriber ID Effective Phone Address T armanie Group Dates LYNDSEY SOLORIO [id number] 2011-Kobe Pradhan BOX Medic aid [facility] [place] [facility] [id number] MANAGED MEDICAID [place] documented as of this encounter
--- OUTSIDE RECORDS SUMMARY | 2020-08-18 22:08 | XMS REPORT | Summary of Care ---
:1980 Author Organization [facility] Address [address] [place] [address] Care Team Providers Name Role Phone ReyesJoshua viramontes Lila Insurance Hmo Yoni Mora MD Primary Care Provider Reason for Visit Reason Comments Pre-Op Exam Auth/Cert Status Reason Specialty Diagnoses / Referred By Referred To Procedures Contact Contact Clinical Medical Diagnoses covid Adc Lab Laboratory Procedures [address] [address] Encounter Details Date Type Department Care Team Description 07/22/2020 Laboratory Only [facility] Nasim Pantoja MD [address] [place] [address] Preop testing (Primary Phlebotomy Only, Adc Test Dx) Lab-[address] [address] Allergies Active Allergy Reactions Severity Noted [...] Active venlafaxine XR 150 mg daily with 06/16/2017 Active 24 hr capsule breakfast. tiotropium [...] Added automatically from request for yara arslan [id number] Abdominal pain, unspecified abdominal location 018 Overview: Added automatically from request for yara arslan [id number] Nausea and vomiting, intractability of vomiting not sp ecified, unspecified 07/13/2018 vomiting type Overview: Added automatically from request for yara monzony [id number] Non-cardiac chest pain 04/27/2018 Essential hypertension 04/27/2018 Pacemaker 04/27/2018 PAF (paroxysmal atrial fibrillation) 04/27/2018 History of cardiac pacemaker in situ 08/23/2017 Tachycardia, unspecified 06/22/2017 Elevated liver enzymes 07/23/2014 Pseudoseizure 04/15/2014 Left sided numbness 03/22/2014 Prediabetes 09/24/2013 Loss of weight 09/24/2013 Hypothyroidism 09/24/2013 Overview: ICD10 Diagnosis Term Plisse Machine Operator Utility Hypoglycemia 08/21/2013 Overview: ICD10 Diagnosis Term Plisse Machine Operator Utility documented as of this [...] been in contact with No / Unsure 07/22/2020 12:38 PM CDT someone who was confirmed or suspected to have Coronavirus / COVID-19? documented as of this encounter Last Filed Vital Signs Not on filedocumented in this encounter Plan of Treatment Date Type Specialty Care Team Description 07/23/2020 Briquette Molder Visit Pulmonary Function Johan Day, Technologist [address] [facility] [address] [place] [address] 08/07/2020 Office Visit Oncology Iram Flores MD [address] [place], [place] [address] [phone] 09/11/2020 Nurse Visit Cardiology Visit, Adc Nurse 10/02/2020 Office Visit Cardiology Navi Hines MD [address] [address] 11/05/2020 Office Visit Pulmonary Disease Tucker Guy DO [facility] [place] [phone] 07/21/2021 Office Visit Pulmonary Disease Teofilo Bailey MD [address] [address] [phone] Name Type Priority Associated Diagnoses Date/Ti me COVID-19 (ID NOW RAPID LAB Routine Preop testing 06/26 12:47 PM CDT TESTING) Name Type Priority Associated Diagnoses Order S chedule COVID-19 (ID NOW RAPID LAB Routine Preop testing Expe cted: 07/22/2020, TESTING) Expires: 2020 Health Maintenance Due Date Last Done Comments VARICELLA VACCINES (1 of 2 - 2-dose childhood series) 1982 DTaP,Tdap,and Td Vaccines (1 - Tdap) 2000 PAP SMEAR 06/21/2007 06/21/2004 PNEUMOCOCCAL 0-64 YEARS COMBINED SERIES (2 of 3 - 06/23/2018 06/23/2017 PCV13) INFLUENZA VACCINE (#1) 2020 11/16/2015 Depression Screening 12/09/2020 12/10/2019 documented as of this encounter Implants Implanted Type Area Jig Filler Device Shelf Expiration Model / Identifier Date Serial / Lot Tendril Mri,A Lead-11/01/[address] [employer] RA- [id number] / Implanted: Qty: 1 on 11/01/2017 by Imtiaz oSto MD [id number] / Description:This implant is MR Condition al and a member of a 1.5T Only MR Conditional System. Tenril Mri,V Lead-11/01/[address] [employer] [id number] / Implanted: Qty: 1 on 11/01/2017 by Imtiaz Soto MD [id number] / Description:This implant is MR Condition al and a member of a 1.5T Only MR Conditional System. Assurity Mri-11/01/[address] [employer] [id number] / Implanted: Qty: 1 on 11/01/2017 by Imtiaz Soto MD [id number] / Description:This device ids MR Condition al for a 1.5T Scanner Only. documented as of this encounter Results Not on filedocumented in this encounter Visit Diagnoses Diagnosis Preop testing - Primary Preoperative examination, unspecified documented in this encounter Additional Health Concerns Infection Onset Date Last Indicated Resolved Time COVID-19 Rule Out 07/22/2020 07/22/2020 documented as of this encounter Insurance Payer Benefit Plan / Subscriber ID Effective Phone Address T ype Group Dates LYNDSEY SOLORIO [id number] 2011-Kobe PERALTA Medic [place] [facility] [facility] [place] [phone] [place] MED[place]ID [place], [place] documented as of this encounter
--- OUTSIDE RECORDS SUMMARY | 2020-08-18 22:08 | XMS REPORT | Summary of Care ---
:1980 Author Organization [facility] Address [address] [place] [address] Care Team Providers Name Role Phone Joshua Reyes Insurance Hmo Yoni Mora MD Primary Care Provider Encounter Details Date Type Department Care Team Description 07/23/2020 Orders Only [facility] Doctor Unassigned, No 301 [facility] [place] [address] 301 [place] [address] Allergies Active Allergy Reactions Severity Noted Date [...] as of this encounter (statuses as of 07/23/2020) Medications Medication Sig Dispensed Refills Start Date [...] as of this encounter (statuses as of 07/23/2020) Active Problems Problem Noted Date Functional neurological [...] Added automatically from request for yara arslan [id number] Abdominal pain, unspecified abdominal location 018 Overview: Added automatically from request for yara arslan [id number] Nausea and vomiting, intractability of vomiting not sp ecified, unspecified 07/13/2018 vomiting type Overview: Added automatically from request for yara arslan [id number] Non-cardiac chest pain 04/27/2018 Essential hypertension 04/27/2018 Pacemaker 04/27/2018 PAF (paroxysmal atrial fibrillation) 04/27/2018 History of cardiac pacemaker in situ 08/23/2017 Tachycardia, unspecified 06/22/2017 Elevated liver enzymes 07/23/2014 Pseudoseizure 04/15/2014 Left sided numbness 03/22/2014 Prediabetes 09/24/2013 Loss of weight 09/24/2013 Hypothyroidism 09/24/2013 Overview: ICD10 Diagnosis Term Blueprint Engineer Utility Hypoglycemia 08/21/2013 Overview: ICD10 Diagnosis Term Blueprint Engineer Utility documented as of this encounter (statuses as of 07/23/2020) Resolved Problems Problem Noted Date Resolved Date Stroke-like symptoms 05/10/2020 05/12/2020 Stroke 06/15/2019 05/12/2020 Metabolic syndrome X 07/23/2014 07/23/2014 documented as of this encounter (statuses as of 07/23/2020) Immunizations Name Administration Dates Next Due Pneumococcal [...] Date Type Specialty Care Team Description 07/23/2020 Mortgage Banker Visit Pulmonary Function Johan Day, Technologist [address] [place], [place] [address] 08/07/2020 Office Visit Oncology Iram Flores MD [address] [place], [place] [address] [phone] 09/11/2020 Nurse Visit Cardiology Visit, Adc Nurse 10/02/2020 Office Visit Cardiology Navi Hines MD [address] [address] 11/05/2020 Office Visit Pulmonary Disease Tucker Guy DO [address] [place] [address] 07/21/2021 Office Visit Pulmonary Disease Teofilo Bailey MD [address] [address] Health Maintenance Due Date Last Done Comments VARICELLA VACCINES (1 of 2 - 2-dose childhood series) 1982 DTaP,Tdap,and Td Vaccines (1 - Tdap) 2000 PAP SMEAR 06/21/2007 06/21/2004 PNEUMOCOCCAL 0-64 YEARS COMBINED SERIES (2 of 3 - 06/23/2018 06/23/2017 PCV13) INFLUENZA VACCINE (#1) 2020 11/16/2015 Depression Screening 12/09/2020 12/10/2019 documented as of this encounter Implants Implanted Type Area Skidder Loader Device Shelf Expiration Model / Identifier Date Serial / Lot Tendril Mri,A Lead-11/01/[address] [employer] RA- [id number] / Implanted: Qty: 1 on 11/01/2017 by Imtiaz Soto MD [id number] / Description:This implant is MR Condition al and a member of a 1.5T Only MR Conditional System. Tenril Mri,V Lead-11/01/[address] [employer] [id number] / Implanted: Qty: 1 on 11/01/2017 by Imtiaz Soto MD [id number] / Description:This implant is MR Condition al and a member of a 1.5T Only MR Conditional System. Assurity Mri-11/01/[address] [employer] [id number] / Implanted: Qty: 1 on 11/01/2017 by Imtiaz Soto MD [id number] / Description:This device ids MR Condition al for a 1.5T Scanner Only. documented as of this encounter Procedures Procedure Name Priority Date/Time Associated Diagnosis Comme nts ASSIGNMENT OF BENEFITS Routine 07/23/2020 9:47 AM CDT documented in this encounter Results Not on filedocumented in this encounter Insurance Payer Benefit Plan / Subscriber ID Effective Phone Address [facility] Dates LYNDSEY SOLORIO [id number] 2011-Kobe [place] [facility] [place] [address] MANAGED MEDICAID [place] documented as of this encounter
--- OUTSIDE RECORDS SUMMARY | 2020-08-18 22:08 | XMS REPORT | Summary of Care ---
:1980 Author Organization [facility] Address [address] [place] [address] Care Team Providers Name Role Phone Joshua Reyes Insurance Hmo Yoni Mora MD Primary Care Provider Reason for Visit Reason Comments Rx Concern/Question Encounter Details Date Type Department Care Team Description 07/21/2020 Telephone [facility] Skeed ADC Tucker Guy DO Rx Concern/Question Pulmonary Clinic [address] , [address] [address] [phone] Allergies Active Allergy Reactions Severity Noted Date [...] Added automatically from request for yara arslan [id number] Abdominal pain, unspecified abdominal location 018 Overview: Added automatically from request for yara arslan [id number] Nausea and vomiting, intractability of vomiting not sp ecified, unspecified 07/13/2018 vomiting type Overview: Added automatically from request for yara mcdaniels [id number] Non-cardiac chest pain 04/27/2018 Essential hypertension 04/27/2018 Pacemaker 04/27/2018 PAF (paroxysmal atrial fibrillation) 04/27/2018 History of cardiac pacemaker in situ 08/23/2017 Tachycardia, unspecified 06/22/2017 Elevated liver enzymes 07/23/2014 Pseudoseizure 04/15/2014 Left sided numbness 03/22/2014 Prediabetes 09/24/2013 Loss of weight 09/24/2013 Hypothyroidism 09/24/2013 Overview: ICD10 Diagnosis Term Marketing Business Analyst Utility Hypoglycemia 08/21/2013 Overview: ICD10 Diagnosis Term Marketing Business Analyst Utility documented as of this encounter (statuses [...] this encounter Miscellaneous Notes Telephone Encounter - Tracey Denney MA - 07/22/2020 3:51 PM CDTPharmacy informed. Telephone Encounter - Tucker Guy DO - [...] for four times a day and Dr. Gyu ordered forit to be 1 puff daily. Pharmacy wanted clarification/confirmation on instructions. elephone Encounter - Hector Clarke - 07/21/2020 2:06 PM [facility] pharmacy calling needing clarification on medication Spiriva. Please advise. documented in this encounter Plan of Treatment Date Type Specialty Care Team Description 07/23/2020 Second Language Tutor Visit Pulmonary Function Johan Day, Technologist [address] [facility] [address] [place], [place] [address] 08/07/2020 Office Visit Oncology Iram lFores MD [address] [place], [place] [address] [phone] 09/11/2020 Nurse Visit Cardiology Visit, Adc Nurse 10/02/2020 Office Visit Cardiology Navi Hines MD [address] [place] [phone] 11/05/2020 Office Visit Pulmonary Disease Tucker Guy DO [address] [place] [phone] 07/21/2021 Office Visit Pulmonary Disease Teofilo Bailey MD [address] [address] Health Maintenance Due Date Last Done Comments VARICELLA VACCINES (1 of 2 - 2-dose childhood series) 1982 DTaP,Tdap,and Td Vaccines (1 - Tdap) 2000 PAP SMEAR 06/21/2007 06/21/2004 PNEUMOCOCCAL 0-64 YEARS COMBINED SERIES (2 of 3 - 06/23/2018 06/23/2017 PCV13) INFLUENZA VACCINE (#1) 2020 11/16/2015 Depression Screening 12/09/2020 12/10/2019 documented as of this encounter Implants Implanted Type Area Procurement Forester Device Shelf Expiration Model / Identifier Date Serial / Lot Tendril Mri,A Lead-11/01/[address] [employer] RA- [id number] / Implanted: Qty: 1 on 11/01/2017 by Imtiaz Soto MD [id number] / Description:This implant is MR Condition al and a member of a 1.5T Only MR Conditional System. Tenril Mri,V Lead-11/01/[address] [employer] [id number] / Implanted: Qty: 1 on 11/01/2017 by Imtiaz Soto MD [id number] / Description:This implant is MR Condition al and a member of a 1.5T Only MR Conditional System. Assurity Mri-11/01/[address] [employer] [id number] / Implanted: Qty: 1 on 11/01/2017 by Imtiaz Soto MD [id number] / Description:This device ids MR Condition al for a 1.5T Scanner Only. documented as of this encounter Results Not on filedocumented in this encounter Additional Health Concerns Infection Onset Date Last Indicated Resolved Time COVID-19 Rule Out 07/22/2020 07/22/2020 07/22/2020 2: 22 PM CDT documented as of this encounter Insurance Payer Benefit Plan / Subscriber ID Effective Phone Address T [facility] Group Dates LYNDSEY SOLORIO [id number] 2011-oKbe Amaro [place] [phone] MANAGED MEDICAID [place] documented as of this encounter
--- OUTSIDE RECORDS SUMMARY | 2020-08-18 22:10 | XMS REPORT | Summary of Care ---
:1980 Author Organization [facility] Address [address] [place] [address] Care Team Providers Name Role Phone ReyesLila Insurance Hmo Yoni Mora MD Primary Care Provider Reason for Referral (Routine) Status Reason Specialty Diagnoses / Referred By Referred To Procedures Contact Contact New Request IM-GASTROENTEROLO Diagnoses Left upper quadrant abdominal pain Lee Alexander MD GY Procedures Discharge Follow-Up: Specialty Service IM-GASTROENTEROLOGY; 2 Weeks [address] [place] [address] (Routine) Status Reason Specialty Diagnoses / Referred By Referred To Procedures Contact Contact New Request IM-CLINICAL CARDIAC Diagnoses Syncope, unspecified syncope type PAF (paroxysmal atrial fibrillation) Lee Alexander MD ELECTROPHYSIOLOGY Procedures Discharge Follow-Up: Specialty Service IM-CLINICAL CARDIAC ELECTROPHYSIOLOGY; 1 Week [address] [place] [address] Other (Routine) Status Reason Specialty Diagnoses / Referred By Referred To Procedures Contact Contact New Request Diagnoses Syncope, unspecified syncope type PAF (paroxysmal atrial fibrillation) Lee Alexander MD Prasad, Sendil Procedures Discharge Follow-up: Specialty Provider EDMUNDO ROMEO; 2 Weeks [address] [facility] MD [place], [place] [address] [place] [address] [address] Phone: [place], [place] [phone] Fax: (Routine) Status Reason Specialty Diagnoses / Referred By Referred To Procedures Contact Contact New Request Diagnoses Syncope, unspecified syncope type Lee Alexander MD Dada, Mohammed Procedures Discharge Follow-up: PCP DIYA MORA; [address] [place] [address] MD Yoni [address] [address] [facility] Phone: [place], [place] [phone] Fax: Radiology Services (STAT) Status Reason Specialty Diagnoses / Referred By Referred To Procedures Contact Contact New Request Diagnostic Diagnoses Dizziness Lenin Andersen, Radiology Procedures XR CHEST [address] [place] [address] [place] [id number] Reason for Visit Reason Comments Syncope Auth/Cert Status Reason Specialty Diagnoses / Referred By Referred To Procedures Contact Contact Emergency Medicine [facility] Em ergency Dept [address] [place] [address] Fax: Encounter Details Date Type Department Care Team Description 07/28/2020 - Emergency ADC Medicine Surgery Mauri Andersen MD [address] [place] [address] [place] [address] [id number] Syncope 07/29/2020 Unit Rosina Zapata MD [address] [place] [address]. [place], [place] [id number] [address] [place] [address] [place] [id number] Allergies Active Allergy Reactions Severity Noted Date [...] as of this encounter (statuses as of 07/29/2020) Medications Medication Sig Dispensed Refills Start Date [...] TK 1 T PO BID 06/16/2017 Active venlafaxine XR 150 mg 150 mg at 06/16/2017 Active 24 hr capsule bedtime. ALPRAZolam (XANAX) Take 0.25 mg by 0 [...] 75 mg by 0 Active tablet mouth daily. apixaban (ELIQUIS) 5 Take 1 tablet by 180 tablet 3 04/10/2020 Active mg tabletIndications: mouth 2 (two) Recurrent DVT times daily. Indications: Recurrent DVT Additional Information Patient taking differently: 5 mg Oral DAILY, Indications: Recurrent DVT, Reported on 07/28/2020 11:57 PM carvediloL 25 mg Take 1 tablet 180 tablet 3 04/10/2020 Active tabletIndications: by mouth 2 History of DVT (deep (two) times vein thrombosis) daily with meals. digoxin 125 mcg (0.125 Take 1 tablet 30 tablet 3 04/14/2020 Active mg) tabletIndications: by mouth History of DVT (deep daily. vein thrombosis), Inappropriate sinus tachycardia fluticasone Inhale 1 Puff 60 Each 11 07/16/2020 Act corey furoate-vilanteroL (BREO daily. ELLIPTA) 200-25 mcg/dose DsDvIndications: Moderate persistent asthma without complication tiotropium bromide Inhale 1 Puff 4 g 11 07/16/2020 Active (SPIRIVA RESPIMAT) 2.5 daily. mcg/actuation MistIndications: Moderate persistent asthma without complication benzonatate (TESSALON Take 1 capsule 60 capsule 11 07/16/2020 Active PERLES) 100 mg by mouth 3 capsuleIndications: (three) times Moderate persistent daily as asthma without needed for complication Cough. pregabalin (LYRICA) 50 Take 50 mg by 0 Active mg capsule mouth at bedtime. carBAMazepine (TEGRETOL) Take 200 mg by 0 Active 200 mg tablet mouth at bedtime. esomeprazole (NEXIUM) 20 Take 20 mg by 0 Active mg capsule mouth 2 (two) times daily before breakfast and dinner. tiotropium 18 mcg Inhale 18 mcg 0 07/28 Discontinued inhalation daily. (Patient Reported) documented as of this encounter (statuses as of 07/29/2020) Active Problems Problem Noted Date Functional neurological [...] Added automatically from request for yara arslan [id number] Abdominal pain, unspecified abdominal location 018 Overview: Added automatically from request for yara arslan [id number] Nausea and vomiting, intractability of vomiting not sp ecified, unspecified 07/13/2018 vomiting type Overview: Added automatically from request for yara arslan [id number] Non-cardiac chest pain 04/27/2018 Essential hypertension 04/27/2018 Pacemaker 04/27/2018 PAF (paroxysmal atrial fibrillation) 04/27/2018 History of cardiac pacemaker in situ 08/23/2017 Tachycardia, unspecified 06/22/2017 Elevated liver enzymes 07/23/2014 Pseudoseizure 04/15/2014 Left sided numbness 03/22/2014 Prediabetes 09/24/2013 Loss of weight 09/24/2013 Hypothyroidism 09/24/2013 Overview: ICD10 Diagnosis Term Ibm Bpm Developer Utility Hypoglycemia 08/21/2013 Overview: ICD10 Diagnosis Term Ibm Bpm Developer Utility documented as of this encounter (statuses as of 07/29/2020) Resolved Problems Problem Noted Date Resolved Date Stroke-like symptoms 05/10/2020 05/12/2020 Stroke 06/15/2019 05/12/2020 Metabolic syndrome X 07/23/2014 07/23/2014 documented as of this encounter (statuses as of 07/29/2020) Immunizations Name Administration Dates Next Due Influenza High Dose 11/16/2015 Pneumococcal Polysaccharide, PPSV23 (PNEUMOVAX) 06/23/2017, 11/16/2015 documented as of this encounter Social History [...] been in contact with No / Unsure 07/28/2020 7:22 PM 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 documented as of this encounter Last Filed Vital Signs Vital Sign Reading Time Taken Comments Blood Pressure 120/81 07/29/2020 10:45 AM INTERNET MERCHANT Pulse 109 07/29/2020 10:45 AM INTERNET MERCHANT Temperature 36 C (96.8 F) 07/29/2020 10:45 AM INTERNET MERCHANT Respiratory Rate 18 07/29/2020 10:45 AM INTERNET MERCHANT Oxygen Saturation 96% 07/29/2020 10:45 AM INTERNET MERCHANT Inhaled Oxygen Concentration - - Weight 54.5 kg (120 lb 1 oz) 07/28/2020 10:28 PM INTERNET MERCHANT Height 149.9 cm (4' 11") 07/28/2020 10:28 PM INTERNET MERCHANT Body Mass Index 24.25 07/28/2020 10:28 PM INTERNET MERCHANT documented in this encounter Discharge Instructions AttachmentsThe following attachments cannot be sent through Care Everywhere. Abdominal Pain, Adult (Mozambican)Pacemaker, Living with (Mozambican)Heart Failure, Coping with (Mozambican)Cardiac Procedures (Mozambican)documented in this encounter Progress Notes Neel Brennan RN - 07/29/2020 8:57 AM CSTCare Management Social Functional Assessment Patient Name: Jenni Draper Age: [age] year old Sex: female Patient's Previous Admission Date at [facility]: 05/11/2020 Current diagnosis and co-morbidities: Syncope Readmission Questions: Was patient discharged from any acute care hospital within the last 30 days: No Social Functional Assessment: Primary language spoken/preferred: Mozambican Mental Status: Alert & Oriented to Person,Place & Time Information given by: Self Patient's support system: Spouse Name and number of support system: Marty Chaudhary spouse [phone], Ryland Rivera father [phone] Primary Umbrella Cutter: Self MPOA: Same as support system Living Arrangement: Home Address of living arrangement : [address] [place] [address] Persons living in home: Same as support system Barriers to returning home: None Baseline functional status- ambulation: Independent Functional status-baseline personal care: Independent Baseline functional status- driving: Independent Baseline functional status- grocery shopping: Independent Functional status-baseline housekeeping: Independent Functional status-baseline meal prep: Independent Current functional status same as prior: Yes Do you have a PCP?: Yes Name of PCP: [facility] Agency: No Provider Services: No DME Company: No Equipment: Bedside Commode;Shower Chair;Cane;Walker;Wheelchair: Manual Hemodialysis: No Community resources utilized: Food [place] Funding Resources: Medicaid HMO Prescription coverage plan: Medicaid unlimited slots Pharmacy where meds are filled: ([facility]) Anticipated services prior to disharge: Continue Medical Eval Expected mode of discharge transportation: Same as support system Additional info required for discharge planning: Pending medical evaluation Recommended discharge plan: Home SFA Complete: Social Functional Assessment complete: Yes Alcohol Use Screening (AUDIT-C) How often do you have a drink containing alcohol?: Never SCORE: 0 Role of Care Management explained. Yes Any issues or concerns with obtaining/affording your medications at home: no. Are you or your support system able to corn picker medications at discharge: yes. Describe: Neel Brennan RN, BSN [facility] ADC Bi Consultant [phone] . RNET MERCHANT documented in this encounter H&P Notes Rosina Zapata MD - 07/28/2020 10:52 PM CST MEDICINE ADC ADMIT H&P Date of Service: 07/28/2020 CHIEF COMPLAINT: passing out History of Present Illness 40 year-old female with multiple comorbidities including with atrial fibrillation, anxiety, asthma/COPD, bipolar disorder,TIA/CVA, DVT, GERD, HTN, hypothyroidism, MVP, SSS s/p cardiac pacemaker who presents to the ED for passing out. Patient notes that this occurred about 5-6 pm while cooking. Associated symptoms: left chest pain, lightheaded, tachycardia (170s), palpitation, malaise, nausea, and vomiting, decreased appetite, constipation. While sitting, witnesses stated that she sloughed on the chair passed out. Patient recovered and family drove her to hospital. She has residual left upper abdominal pain. Cardiac pacer: [facility] [employer], failed cardiac ablation procedure in January PAST MEDICAL HISTORY Past Medical History: Diagnosis [...] was roughly in 2016 Sick sinus syndrome Stroke-like symptoms 05/10/2020 TIA (transient ischemic attack) Transaminitis Vitamin D deficiency Past Surgical History: Procedure Laterality Date CHOLECYSTECTOMY COLONOSCOPY N/A 08/02/2018 Surgeon: Natalya Davis MD; Location: Endoscopy ([facility]) OR Location ESOPHAGOGASTRODUODENOSCOPY N/A 08/02/2018 Surgeon: Natalya Davis MD; Location: Endoscopy ([facility]) OR Location HB CONFIRM LOOP RECORDER Removed 10/2017 HYSTERECTOMY 07/2012 PACEMAKERS INSERTION 10/2017 [facility]; Dr Imtiaz Soto, [facility], inserted twice Family History Problem Relation Age [...] Son Bipolar disorder Son Genetic Son Autism ALLERGIES Allergies Allergen Reactions Aluminum Aspirin Anaphylaxis [...] Cefixime Rash Sulfa (Sulfonamide Antibiotics) Rash MEDICATIONS No current facility-administered medications on file prior to encounter. Current Outpatient Medications on File Prior to Encounter Medication Sig Dispense Refill carBAMazepine (TEGRETOL) 200 mg tablet Take 200 mg by mouth at bedtime. esomeprazole (NEXIUM) 20 mg capsule Take 20 mg by mouth 2 (two) times daily before breakfast anddinner. pregabalin (LYRICA) 50 mg capsule Take 50 mg by mouth at bedtime. benzonatate (TESSALON PERLES) 100 mg capsule Take 1 capsule by mouth 3 (three) times daily as needed for Cough. 60 capsule 11 fluticasone furoate-vilanteroL (BREO ELLIPTA) 200-25 mcg/dose DsDv Inhale 1 Puff daily. 60 Each 11 tiotropium bromide (SPIRIVA RESPIMAT) 2.5 mcg/actuation Mist Inhale 1 Puff daily. 4 g 11 digoxin 125 mcg (0.125 mg) tablet Take 1 tablet by mouth daily. 30 tablet 3 apixaban (ELIQUIS) 5 mg tablet Take 1 tablet by mouth 2 (two) times daily. Indications: Recurrent DVT 180 tablet 3 carvediloL 25 mg tablet Take 1 tablet by mouth 2 (two) times daily with meals. 180 tablet 3 venlafaxine 75 mg tablet Take 75 mg by mouth daily. levETIRAcetam 500 mg tablet Take 2 tablets by mouth 2 (two) times daily. 120 tablet 6 atorvastatin 10 mg tablet Take 10 mg by mouth daily. 1 blood sugar diagnostic (TRUETEST TEST STRIPS) strip Use as directed. R 73.03. Check once daily 100 Strip 3 lancets (TRUEPLUS LANCETS) 33 gauge Misc Use as directed. R 73.03, Check once daily 100 Each 3 ALPRAZolam (XANAX) 0.25 mg tablet Take 0.25 mg by mouth at bedtime as needed. tiotropium 18 mcg inhalation Inhale 18 mcg daily. ABILIFY 10 mg tablet TK 1 T PO QHS 1 ABILIFY 5 mg tablet TK 1 T PO D, in am 1 busPIRone 15 mg tablet TK 1 T PO BID 1 venlafaxine XR 150 mg 24 hr capsule 150 mg at bedtime. 1 DALIRESP 500 mcg Tab daily. albuterol (ACCUNEB) 1.25 mg/3 mL nebulizer solution Use 1 Ampule as directed every 6 (six) hoursas needed. ALBUTEROL SULFATE (PROAIR HFA INHALE) Inhale. loratadine (CLARITIN) 10 mg tablet as needed. SOCIAL HISTORY Social History Socioeconomic History Marital [...] years: 0.60 Quit date: 05/09/2003 Years since quittin.2 Smokeless tobacco: Never Used Tobacco comment: quit [...] file Gets together: Not on file Attends anabaptist service: Not on file Active member of [...] file Social History Narrative Not on file Review of Systems Constitutional: Positive for appetite change (decreased). Negative for activity change, chills, diaphoresis, fatigue, fever and unexpected weight change. HENT: Negative. Eyes: Negative. Respiratory: Positive for cough. Negative for apnea, choking, chest tightness, shortness of breath, wheezing and stridor. Breasts: Negative. Cardiovascular: Positive for chest pain and palpitations. Negative for leg swelling. Gastrointestinal: Positive for abdominal pain, constipation, nausea and vomiting. Negative for abdominal distention, anal bleeding, blood in stool, diarrhea and rectal pain. Genitourinary: Negative. Musculoskeletal: Positive for myalgias. Negative for arthralgias, back pain, gait problem and joint swelling. Skin: Negative. Neurological: Positive for syncope. Negative for dizziness, tremors, seizures, facial asymmetry, speech difficulty, weakness, light-headedness, numbness and headaches. Psychiatric/Behavioral: Negative. Endocrine: Endocrine negative PHYSICAL EXAMINATION Vitals: 07/28/20 2042 07/28/20 2116 07/28/20 2218 07/28/20 2228 BP: (!) 130/91 123/89 112/78 120/86 Pulse: 85 104 93 92 Resp: 14 16 (!) 78 18 Temp: 36.7 C (98.1 F) TempSrc: Temporal Artery SpO2: 98% 96% 98% 98% Weight: 54.5 kg (120 lb 1 oz) Height: 1.499 m (4' 11") Physical Exam LABS - reviewed pertinent labs as below: Reviewed IMAGING - reviewed, pertinent results as below: XR CHEST 1 VW HISTORY: chest pain COMPARISON: Chest x-ray on 05/10/2020 FINDINGS: The lungs are clear. No focal consolidation is present. No pleural effusion or pneumothorax is present. The heart size is normal. The tips of the right chest wall pacemaker electrodes origin of the right atrium and the right ventricle. The osseous structures are unremarkable. IMPRESSION No acute cardiopulmonary abnormality is present. Preliminary Report Dictated by Resident: Long Aparicio MD., have reviewed this study and agree with the above report. ASSESSMENT/PLAN Jenni Draper is a 40 year old female with PMH as listed above, admitted to the hospital with: 1. Syncope: No evidence of neurologic deficits on examination. EKG negative for acute abnormality. -- Overnight telemetry, serial cardiac enzymes, and Echocardiogram is pending -- Fluid hydration -- Will trend troponins -- Will review medications to evaluate a potential cause -- Will need interrogation of the pacer. 2. Abdominal pain: unclear etiology. -- Pain control -- CT Abdomen/Pelvis is pending 3. Acute cystitis -- Will order antibiotics while pending urine report 4. Asthma: stable 5. DVT: -- Resume outpatient anticoagulation 6. Hypothyroidism: -- Will resume outpatient therapy. Prophylaxis: DVT- On Eliquis Code Status: addressed: FC documented in this encounter ED Notes Eric Crenshaw RN - 07/28/2020 7:22 PM CSTPatient states, "I was at home and I got dizzy and passed out. I was supposed to have an oblation done in January but they wasn't able to do it. 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 treatment: None Chief Complaint Chief Complaint Patient presents with Syncope HPI History provided by: Patient Dizziness Quality: Lightheadedness Severity: Moderate Onset quality: Gradual Duration: 1 hour Timing: Constant Progression: Improving Chronicity: Recurrent Context: loss of consciousness Context: not with bowel movement and not with ear pain Relieved by: Nothing Worsened by: Nothing Associated symptoms: chest pain and shortness of breath Associated symptoms: no headaches, no nausea, no palpitations and no vomiting Risk factors: heart disease, hx of stroke and multiple medications Past Medical History / Immunizations Past Medical History: Diagnosis Date A-fib Anemia [...] was roughly in 2015 Sick sinus syndrome Stroke-like symptoms 05/10/2020 TIA (transient ischemic attack) Transaminitis Vitamin D deficiency Tetanus received in last 5 years: No Childhood immunizations: Up-to-date Past Surgical History Past Surgical History: Procedure Laterality Date CHOLECYSTECTOMY COLONOSCOPY N/A 08/02/2018 Surgeon: Natalya Davis MD; Location: Endoscopy ([facility]) OR Location ESOPHAGOGASTRODUODENOSCOPY N/A 08/02/2018 Surgeon: Natalya Davis MD; Location: Endoscopy ([facility]) OR Location HB CONFIRM LOOP RECORDER Removed 10/2017 HYSTERECTOMY 07/2012 PACEMAKERS INSERTION 10/2017 [facility]; Dr Imtiaz Soto, [facility], inserted twice Allergies Allergies Allergen Reactions Aluminum Aspirin Anaphylaxis [...] papertape. Cefixime Rash Sulfa (Sulfonamide Antibiotics) Rash Social History Tobacco Use Former Smoker; Quit 05/09/2003; Smoked an average of 0.3 packs/day for 2 years. Smokeless Tobacco: Never used smokeless tobacco. Comments: quit 16 years ago Alcohol Use No. Drug Use Not Currently. Comments: used cocaine x 2 in 2000 Review of Systems Review of Systems Constitutional: Negative. Negative for chills, fatigue, fever and unexpected weight change. HENT: Negative. Eyes: Negative. Negative for discharge and itching. Respiratory: Positive for shortness of breath. Negative for cough, chest tightness and wheezing. Cardiovascular: Positive for chest pain. Negative for palpitations. Gastrointestinal: Negative. Negative for abdominal distention, abdominal pain, nausea and vomiting. Genitourinary: Negative. Negative for dysuria, urgency, frequency and flank pain. Musculoskeletal: Negative. Skin: Negative. Negative for color change, pallor and wound. Neurological: Positive for dizziness and syncope. Negative for light-headedness and headaches. Psychiatric/Behavioral: Negative. Negative for agitation and behavioral problems. All other systems reviewed and are negative. Endocrine: Endocrine negative Physical Exam BP (!) 115/101 | Pulse 100 | Temp 36.9 C (98.4 F) | Resp 18 | Ht 1.499 m (4' 11") | Wt 56.2kg (124 lb) | BMI 25.04 kg/m Physical Exam Vitals signs reviewed. Constitutional: Appearance: She is well-developed. HENT: Head: Normocephalic and atraumatic. Nose: Nose normal. Eyes: Conjunctiva/sclera: Conjunctivae normal. Neck: Musculoskeletal: Normal range of motion and neck supple. Trachea: No tracheal deviation. Cardiovascular: Rate and Rhythm: Regular rhythm. Tachycardia present. Heart sounds: Normal heart sounds. No murmur. No friction rub. Pulmonary: Effort: Pulmonary effort is normal. No respiratory distress. Breath sounds: Normal breath sounds. No stridor. No wheezing or rales. Abdominal: General: Bowel sounds are normal. There is no distension. Palpations: Abdomen is soft. Tenderness: There is no abdominal tenderness. There is no guarding or rebound. Musculoskeletal: Normal range of motion. Skin: General: Skin is warm and dry. Neurological: Mental Status: She is alert and oriented to person, place, and time. Cranial Nerves: No cranial nerve deficit. Sensory: No sensory deficit. Psychiatric: Behavior: Behavior normal. Thought Content: Thought content normal. Judgment: Judgment normal. Labs No results found for this or any previous visit (from the past 24 hour(s)). Imaging No results found for this visit on 07/28/20. Orders and Treatments Orders Placed This Encounter Procedures Urinalysis CBC with Differential Basic Metabolic Panel (NA, K, CL, CO2, GLUCOSE, BUN, CREATININE, CA) Hepatic Function Panel (ALB, T.PRO, BILI T, BU/BC, ALT, AST, ALK PHOS) Troponin I aPTT Prothrombin Time (PT) / INR N-TERMINAL PRO-BNP POCT Test ADC / [facility] - DRUG SCREEN TRIAGE COVID-19 (ID NOW RAPID TESTING) No orders of the defined types were placed in this encounter. Procedures EKG Time 1934 Rate 107 Sinus Tachycardia [place] normal No acute ischemia Notes & MDM Patient was evaluated for an emergency medical condition related to Syncope . Differential diagnoses considered by presenting complaints but not limited to: Afib Vertigo TIA Syncope History, physical exam findings, results of visit, differential diagnosis, medication regimens and plan of future care have been considered. Additional MDM may be found in the ED course. Differential diagnosis considered and final disposition made based on information gathered during evaluation and may not be completely ruled out or specifically listed. Vital signs were rechecked before final disposition. Diagnosis ICD-10-CM ICD-9-CM 1. Dizziness R42 780.4 Disposition & Follow Up ED Disposition None Patient's Medications START taking these medications No [...] 2 (two) times daily. Indications: Recurrent DVT ATORVASTATIN 10 MG TABLET Take 10 mg by mouth daily. BENZONATATE (TESSALON PERLES) 100 MG CAPSULE Take 1 capsule by mouth 3 (three) times daily as needed for Cough. BLOOD SUGAR DIAGNOSTIC (TRUETEST TEST STRIPS) STRIP Use as directed. R 73.03. Check once daily BUSPIRONE 15 MG TABLET TK 1 T PO BID CARVEDILOL 25 MG TABLET Take 1 tablet by mouth 2 (two) times daily with meals. DALIRESP 500 MCG TAB daily. DIGOXIN 125 MCG (0.125 MG) TABLET Take 1 tablet by mouth daily. FLUTICASONE FUROATE-VILANTEROL (BREO ELLIPTA) 200-25 MCG/DOSE DSDV Inhale 1 Puff daily. LANCETS (TRUEPLUS LANCETS) 33 GAUGE MISC Use as directed. R 73.03, Check once daily LEVETIRACETAM 500 MG TABLET Take 2 tablets by mouth 2 (two) times daily. LORATADINE (CLARITIN) 10 MG TABLET as needed. TIOTROPIUM 18 MCG INHALATION Inhale 18 mcg daily. TIOTROPIUM BROMIDE (SPIRIVA RESPIMAT) 2.5 MCG/ACTUATION MIST Inhale 1 Puff daily. VENLAFAXINE 75 MG TABLET Take 75 mg by mouth at bedtime. VENLAFAXINE XR 150 MG 24 HR CAPSULE daily with breakfast. START taking Modified Medications as Prescribed No medications on file STOP taking these medications No medications on file Lenin Andersen Jr., MD Clinical Sourcing Internship [facility] Emergency Department RNET MERCHANT documented in this encounter Miscellaneous Notes Care Plan - Gala Zambrano RN - 07/29/2020 1:46 AM INTERNET MERCHANT Problem: Falls, Risk of Goal: Absence of falls Outcome: Progressing as expected Problem: Discharge Planning Goal: Absence of venous thromboembolism Outcome: Progressing as expected Goal: Adequate for discharge Outcome: Progressing as expected Goal: Effective communication Outcome: Progressing as expected Problem: Fluid Volume - Imbalanced Goal: Absence of imbalanced fluid volume signs and symptoms Outcome: Progressing as expected Problem: Pain Goal: Control of pain at or below patient's documented comfort goal Outcome: Progressing as expected Goal: Reduction in pain sensation Outcome: Progressing as expected Problem: Cardiac Output - Decreased Goal: Absence of signs and symptoms of decreased cardiac output Outcome: Progressing as expected Problem: Tissue Perfusion, Cardiopulmonary - Altered Goal: Circulatory function within specified parameters Outcome: Progressing as expected D Nurse Note - Erma Ortega RN - 07/28/2020 10:17 PM CSTReport given to Gala Rees . Patient to go to room 2211. D Nurse Note - Erma Ortega RN - 07/28/2020 9:41 PM CSTPatent talking on phone upon entry to room . When asked if fentanyl had helped her pain she reports that it helped her chest pain but not the pain that she had to her upper left side abd. Reports thatpain to her chest had come down to 6/10 and pain to abd was 10/10. Md notified. D Nurse Note - Erma Ortega RN - 07/28/2020 7:45 PM INTERNET MERCHANT Have attempted piv x 2 -one with ultrasound and one without. Patient tolerated well. States that sometimes they have to do it ultrasound . Another nurse attempting piv at this time. D Nurse Note - Erma Ortega RN - 07/28/2020 7:12 PM CSTRec'd Jenni Draper is a 40 year old female to room TX6 for co dizziness and near syncope. Reports that has hx of cardiac problems and was supposed to have an ablation but hasn't. States that after she became dizzy that she sat down and took her pulse ox and heart rate. Reports that her heartrate was 170. Reports that her pulse ox was okay. Happened while she was cooking. To room by wheelchair. Alert and oriented. Speaking in complete sentences. Respiratory unlabored. Now reports chest pain. RNET MERCHANT documented in this encounter Plan of Treatment Date Type Specialty Care Team Description 08/07/2020 Office Visit Oncology Iram Flores MD [address], [place] [address] [phone] 09/11/2020 Nurse Visit Cardiology Visit, Adc Nurse 10/02/2020 Office Visit Cardiology Edmundo Romeo MD [address] [place] [phone] 11/05/2020 Office Visit Pulmonary Disease Tucker Guy DO [facility] [place] [phone] 07/21/2021 Office Visit Pulmonary Disease Heena Bailey MD [address] [address] Name Type Priority Associated Diagnoses Date/Ti me LAB ONLY COVID LAB STAT Dizziness 07/28/2020 8 :25 PM INTERPRETATION INTERNET MERCHANT Name Type Priority Associated Order Schedule Diagnoses EKG-12 LEAD ROUTINE HEART STATION STAT Dizziness ONCE fo r 1 ONCE Occurrences sta rting 07/28/2020 unti l 07/28/2020 LAB ONLY COVID LAB Routine Dizziness ONCE for 1 INTERPRETATION Occurrences s tarting 07/28/2020 unti l 07/28/2020 CBC with Differential LAB Routine EVERY MORNING AT 0400 for 5 Occurrences sta rting 07/29/2020 unti l 08/02/2020, 1 completed Basic Metabolic Panel LAB Routine EVERY MORNING AT (NA, K, CL, CO2, 0400 for 5 GLUCOSE, BUN, Occurrences st arting CREATININE, CA) 07/29/2020 u ntil 08/02/2020, 1 completed Health Maintenance Due Date Last Done Comments VARICELLA VACCINES (1 of 2 - 2-dose childhood series) 1982 DTaP,Tdap,and Td Vaccines (1 - Tdap) 2000 PAP SMEAR 06/21/2007 06/21/2004 PNEUMOCOCCAL 0-64 YEARS COMBINED SERIES (2 of 3 - 06/23/2018 06/23/2017 PCV13) INFLUENZA VACCINE (#1) 2020 11/16/2015 Depression Screening 12/09/2020 12/10/2019 documented as of this encounter Implants Implanted Type Area Warm In Device Shelf Expiration Model / Identifier Date Serial / Lot Tendril Mri,A Lead-11/01/[address] [employer] RA- [id number] / Implanted: Qty: 1 on 11/01/2017 by Imtiaz Soto MD [id number] / Description:This implant is MR Condition al and a member of a 1.5T Only MR Conditional System. Tenril Mri,V Lead-11/01/[address] [employer] [id number] / Implanted: Qty: 1 on 11/01/2017 by Imtiaz Soto MD [id number] / Description:This implant is MR Condition al and a member of a 1.5T Only MR Conditional System. Assurity Mri-11/01/[address] [employer] [id number] / Implanted: Qty: 1 on 11/01/2017 by Imtiaz Soto MD [id number] / Description:This device ids MR Condition al for a 1.5T Scanner Only. documented as of this encounter Procedures Procedure Name Priority Date/Time Associated Comments Diagnosis CBC WITH DIFF Routine 07/29/2020 3:03 Results fo r this AM INTERNET MERCHANT procedure are i n the results section. DIGOXIN Routine 07/29/2020 3:03 Results for this AM INTERNET MERCHANT procedure are i n the results section. BASIC METABOLIC PANEL Routine 07/29/2020 3:03 Re sults for this (NA, K, CL, CO2, AM INTERNET MERCHANT procedure a re in GLUCOSE, BUN, the results CREATININE, CA) section. TROPONIN I Add-on 07/29/2020 3:03 Results for this AM INTERNET MERCHANT procedure are i n the results section. POCT GLUCOSE Routine 07/29/2020 12:13 Results for this (AUTOMATED) AM INTERNET MERCHANT procedure are i n the results section. XR CHEST 1 VW STAT 07/28/2020 9:32 Dizziness Results fo r this PM INTERNET MERCHANT procedure are i n the results section. ACTIVATED PARTIAL STAT 07/28/2020 9:07 Dizziness Result s for this THRMPLAS PANDA PM INTERNET MERCHANT procedure are i n the results section. PROTHROMBIN TIME / STAT 07/28/2020 9:07 Dizziness Resul ts for this INR PM INTERNET MERCHANT procedure are i n the results section. POCT TEST GIGI 07/28/2020 8:47 Dizziness Resu lts for this PM INTERNET MERCHANT procedure are i n the results section. ADC / LCC - DRUG STAT 07/28/2020 8:34 Dizziness Results for this SCREEN TRIAGE PM INTERNET MERCHANT procedure are in the results section. URINALYSIS STAT 07/28/2020 8:34 Dizziness Results for this PM INTERNET MERCHANT procedure are i n the results section. COVID-19 (ID NOW STAT 07/28/2020 8:25 Dizziness Results for this RAPID TESTING) PM INTERNET MERCHANT procedure are in the results section. DIGOXIN STAT 07/28/2020 8:24 Dizziness Results for this PM INTERNET MERCHANT procedure are i n the results section. N-TERMINAL PRO-BNP STAT 07/28/2020 8:06 Dizziness Resul ts for this PM INTERNET MERCHANT procedure are i n the results section. CBC WITH DIFF STAT 07/28/2020 8:06 Dizziness Results fo r this PM INTERNET MERCHANT procedure are i n the results section. BASIC METABOLIC PANEL STAT 07/28/2020 8:06 Dizziness Re sults for this (NA, K, CL, CO2, PM INTERNET MERCHANT procedure a re in GLUCOSE, BUN, the results CREATININE, CA) section. HEPATIC FUNCTION STAT 07/28/2020 8:06 Dizziness Results for this PANEL (71805) PM INTERNET MERCHANT procedure are in (ALB,T.PRO,BILI the results T,BU/BC,ALT,AST,ALK section. PHOS) TROPONIN I STAT 07/28/2020 8:06 Dizziness Results for this PM INTERNET MERCHANT procedure are i n the results section. CONSENT/REFUSAL FOR Routine 07/28/2020 7:12 DIAGNOSIS AND PM INTERNET MERCHANT TREATMENT documented in this encounter Results TROPONIN I (07/29/2020 3:03 AM INTERNET MERCHANT) Pathologist Sig nature TROPONIN I <0.012 <=0.034 ng/mL [facility] Specimen Blood - LINE, VENOUS Narrative Performed At Equal or Less than 0.034 ng/ml---Normal [facility] Note: Cardiac troponin begins to [...] biotin. Performing Organization Address City/State/Zipcode Phone Number [facility] CLIA: [id number] [place] [address] Basic Metabolic Panel (NA, K, CL, CO2, GLUCOSE, BUN, CREATININE, CA) (07/29/2020 3:03 AM INTERNET MERCHANT) [facility] NA 138 135 - 145 [facility] mmol/L [facility] K 4.0 3.5 - 5.0 [facility] mmol/L [facility] CL 99 98 - 108 mmol/L [facility] CO2 TOTAL 32 (H) 23 - 31 mmol/L [facility] AGAP 7 2 - 16 [facility] BUN 14 7 - 23 mg/dL [facility] GLUCOSE 116 (H) 70 - 110 mg/dL [facility] CREATININE 0.70 0.50 - 1.04 [facility] mg/dL [facility] CALCIUM 9.5 8.6 - 10.6 [facility] mg/dL [facility] eGFR Calculation 93.2 mL/min/1.73m2 [facility] ([facility]ATORY Irish) eGFR Calculation 112.9 mL/min/1.73m2 [facility] () [facility] Specimen Blood - LINE, VENOUS Narrative Performed At Association of Glomerular Filtration Rate (GFR) [facility] and Staging of Kidney Disease* [...] tests). Performing Organization Address City/State/Zipcode Phone Number [facility] CLIA: [id number] [place], [place] [id number] LABORAT[address] CBC with Differential (07/29/2020 3:03 AM INTERNET MERCHANT) [facility] nature WBC 6.16 4.30 - 11.10 [facility] 10*3/L [facility] RBC 4.62 3.93 - 5.25 [facility] 10*6/L [facility] HGB 13.4 11.6 - 15.0 g/dL [facility] HCT 40.6 35.7 - 45.2 % [facility] MCV 87.9 80.6 - 95.5 fL [facility] MCH 29.0 25.9 - 32.8 pg [facility] MCHC 33.0 31.6 - 35.1 g/dL [facility] RDW-SD 41.3 39.0 - 49.9 fL [facility] RDW-CV 13.0 12.0 - 15.5 % [facility] PLT 230 166 - 358 [facility] 10*3/L [facility] MPV 10.4 9.5 - 12.9 fL [facility] NRBC/100 WBC 0.0 0.0 - 10.0 /100 [facility] WBCs [facility] NRBC x10^3 <0.01 10*3/L [facility] GRAN MAT (NEUT) % 53.2 % [facility] IMM GRAN % 0.20 % [facility] LYMPH % 38.0 % [facility] MONO % 7.8 % [facility] EOS % 0.5 % [facility] BASO % 0.3 % [facility] GRAN MAT x10^3(ANC) 3.28 1.88 - 7.09 [facility] 10*3/uL [facility] IMM GRAN x10^3 <0.03 0.00 - 0.06 [facility] 10*3/uL HOSPITAL LABORATORY LYMPH x10^3 2.34 1.32 - 3.29 [facility] 10*3/uL HOSPITAL LABORATORY MONO x10^3 0.48 0.33 - 0.92 [facility] 10*3/uL HOSPITAL LABORATORY EOS x10^3 0.03 0.03 - 0.39 [facility] 10*3/uL HOSPITAL LAB[facility]ATORY BASO x10^3 <0.03 0.01 - 0.07 [facility] 10*3/uL HOSPITAL LAB[facility]ORY Specimen Blood - LINE, VENOUS Performing Organization Address [facility] Phone Number [facility] CLIA: [id number] [place] [address] DIGOXIN (07/29/2020 3:03 AM INTERNET MERCHANT) Pathologist Sig nature DIGOXIN <0.4 (L) 0.8 - 1.6 ng/mL [facility] Specimen Blood - LINE, VENOUS Narrative Performed At Arrythmias: 1.5 - 2.0 ng/m L [facility] Toxic Range: Greater than or equal to 2.4 ng/mL Performing Organization Address [facility] Phone Number [facility] CLIA: [id number] [place] [address] [place] [address] POCT GLUCOSE (AUTOMATED) (07/29/2020 12:13 AM INTERNET MERCHANT) Pathologist Sig nature POCT GLU 137 (H) 70 - 110 mg/dL [facility] Specimen Blood Performing Organization Address [facility] Phone Number [facility] CLIA: [id number] [place] [address] XR CHEST 1 VW (07/28/2020 9:32 PM INTERNET MERCHANT) Specimen Impressions Performed At PACS/VR/DOSE No acute cardiopulmonary abnormality is present. Preliminary Report Dictated by Resident: Anjali Irving I, Long Arguello MD., have reviewe d this study and agree with the above report. Narrative Performed At XR CHEST 1 VW PACS/VR/DOSE HISTORY: chest pain COMPARISON: Chest x-ray on 05/10/2020 FINDINGS: The lungs are clear. No focal consolidat ion is present. No pleural effusion or pneumothorax is p resent. The heart size is normal. The tips of th e right chest wall pacemaker electrodes origin of the right atrium an d the right ventricle. The osseous structures are unremarkable. Procedure Note [facility], Radiant Results Inft User - 2019 10:01 PM INTERNET MERCHANT XR CHEST 1 VW HISTORY: chest pain COMPARISON: Chest x-ray on 05/10/2020 FINDINGS: The lungs are clear. No focal consolidat ion is present. No pleural effusion or pneumothorax is p resent. The heart size is normal. The tips of th e right chest wall pacemaker electrodes origin of the right atrium an d the right ventricle. The osseous structures are unremarkable. IMPRESSION No acute cardiopulmonary abnormality is present. Preliminary Report Dictated by Resident: Anjali Irving I, Long Arguello MD., have reviewed this study and agree with the above report. Performing Organization Address [facility]/Zipcode Phone Number PACS/VR/DOSE Prothrombin Time (PT) / INR (07/28/2020 9:07 PM INTERNET MERCHANT) PROTIME PATIENT 13.1 12.0 - 14.7 [facility] LABORATORY INR 1.0Comment: Normal [facility] INR <1.1; [facility] Therapeutic range LABORATORY 2.0 to 3.0 or 2.5 to 3.5, depending upon the indications. Specimen Blood - VENOUS Performing Organization Address [facility] Phone Number [facility] CLIA: [id number] [place] [address] aPTT (07/28/2020 9:07 PM INTERNET MERCHANT) Pathologist [facility] APTT Patient 30 23 - 38 Seconds [facility] Specimen Blood - VENOUS Narrative Performed At [facility] patient population mean normal value [facility] for aPTT is 30 seconds. Performing Organization Address [facility] Phone Number [facility] CLIA: [id number] [place] [address] POCT Test (07/28/2020 8:47 PM INTERNET MERCHANT) Pathologist [facility] POCT PREG Negative On board controls acceptable Present with C Line POCT PREG LOT # [id number] POCT PREG TEST DATE 12/23/2021 Specimen Urine - URINE, CLEAN CATCH ADC / LCC - DRUG SCREEN TRIAGE (07/28/2020 8:34 PM INTERNET MERCHANT) Pathologist Sig nature BENZO U Negative Negative [facility] VI U Negative Negative [facility] AMPHET Negative Negative [facility] THC Negative Negative [facility] METHADONE Negative Negative [facility] Meth U Negative Negative [facility] OPIATES Negative Negative [facility] Cocaine Metabolite Negative [facility] PROPOXY Negative Negative [facility] Tric U Negative Negative [facility] PCP Negative Negative [facility] OXYCOD Negative Negative [facility] Specimen Urine - URINE, CLEAN CATCH Narrative Performed At Urine Drug Cutoff Ranges [facility] Benzodiazepines: 150 ng/mL Barbiturates: 200 [...] testing). Performing Organization Address City/State/Zipcode Phone Number [facility] CLIA: [id number] [place] [address] Urinalysis (07/28/2020 8:34 PM INTERNET MERCHANT) Pathologist Sig nature APPEARANCE Clear Clear [facility] COLOR Yellow Yellow [facility] PH 6.0 4.8 - 8.0 [facility] SP GRAVITY 1.010 1.003 - 1.030 [facility] GLU U QUAL Normal Normal [facility] BLOOD Negative Negative [facility] KETONES Negative Negative [facility] PROTEIN Negative Negative [facility] UROBILIN Normal Normal [facility] BILIRUBIN Negative Negative [facility] NITRITE Negative Negative [facility] LEUK NOLBERTO 75/uL (A) Negative [facility] RBC/HPF 2 0 - 3 HPF [facility] WBC/HPF 8 (H) 0 - 5 HPF [facility] BACTERIA Few (A) Negative [facility] MUCOUS Slight (A) Negative LPF [facility] SQ EPITH 1 HPF [facility] TRANS EPI <1 <=1 HPF [facility] Specimen Urine - URINE, CLEAN CATCH Performing Organization Address [facility] Phone Number [facility] CLIA: [id number] [place] [address] [place] [address] Drive COVID-19 (ID NOW RAPID TESTING) (07/28/2020 8:25 PM INTERNET MERCHANT) SARS-CoV-2 Rapid ID Not Detected Not Detected [facility] Specimen Swab - NASOPHARYNGEAL SWAB Narrative Performed At OK NOW COVID-19 Assay is an isothermal nucleic [facility] acid amplification test intended for the qualitative detection of nucleic acid from SARS-CoV-2 viral RNA in nasopharyngeal (COMMUNITY LIAISON OFFICER) specimens. It is used under Emergency Use [...] testing if clinically indicated. Performing Organization Address [facility] Phone Number [facility] CLIA: [id number] [place] [address] [place] [address] DIGOXIN (07/28/2020 8:24 PM INTERNET MERCHANT) Pathologist Sig nature DIGOXIN <0.4 (L) 0.8 - 1.6 ng/mL [facility] Specimen Blood - VENOUS Narrative Performed At Arrythmias: 1.5 - 2.0 ng/m L [facility] Toxic Range: Greater than or equal to 2.4 ng/mL Performing Organization Address [facility] Phone Number [facility] CLIA: [id number] [place] [address] [address] N-TERMINAL PRO-BNP (07/28/2020 8:06 PM INTERNET MERCHANT) Pathologist [facility] NT-proBNP 34 <=125 pg/mL [facility] Specimen Blood - VENOUS Narrative Performed At Biotin has been reported to cause a negative [facility] bias, interpret results relative to patient's use of biotin. Performing Organization Address [facility] Phone Number [facility] CLIA: [id number] [place] [address] LABORATORY [address] [facility] Troponin I (07/28/2020 8:06 PM INTERNET MERCHANT) [facility] TROPONIN I <0.012 <=0.034 ng/mL [facility] Specimen Blood - VENOUS Narrative Performed At Equal or Less than 0.034 ng/ml---Normal [facility] Note: Cardiac troponin begins to [...] patient's use of biotin. Performing Organization Address [facility] Phone Number [facility] CLIA: [id number] [place] [address] Hepatic Function Panel (ALB, T.PRO, BILI T, BU/BC, ALT, AST, ALK PHOS) (07/28/2020 8:06 PM INTERNET MERCHANT) Pathologist Sig [facility] TOTAL BILI 0.6 0.1 - 1.1 mg/dL [facility] BILI UNCON 0.6 0.1 - 1.1 mg/dL [facility] BILI CONJ 0.0 0.0 - 0.3 mg/dL [facility] T PROTEIN 8.1 6.3 - 8.2 g/dL [facility] ALBUMIN 4.7 3.5 - 5.0 g/dL [facility] ALK PHOS 119 34 - 122 U/L [facility] ALTv 25 5 - 35 U/L [facility] AST(SGOT) 36 13 - 40 U/L [facility] Specimen Blood - VENOUS Performing Organization Address City/State/Zipcode Phone Number [facility] CLIA: [id number] [place] [address] Basic Metabolic Panel (NA, K, CL, CO2, GLUCOSE, BUN, CREATININE, CA) (07/28/2020 8:06 PM INTERNET MERCHANT) [facility] NA 138 135 - 145 [facility] mmol/L [facility] K 3.8 3.5 - 5.0 [facility] mmol/L [facility] CL 101 98 - 108 mmol/L [facility] CO2 TOTAL 31 23 - 31 mmol/L [facility] AGAP 6 2 - 16 [facility] BUN 11 7 - 23 mg/dL [facility] GLUCOSE 111 (H) 70 - 110 mg/dL [facility] CREATININE 0.69 0.50 - 1.04 [facility] mg/dL [facility] CALCIUM 10.0 8.6 - 10.6 [facility] mg/dL [facility] eGFR Calculation 94.7 mL/min/1.73m2 [facility] ([facility] Irish) eGFR Calculation 114.8 mL/min/1.73m2 [facility] () [facility] Specimen Blood - VENOUS Narrative Performed At Association of Glomerular Filtration Rate (GFR) [facility] and Staging of Kidney Disease* [...] tests). Performing Organization Address City/State/Zipcode Phone Number [facility] CLIA: [id number] [place] [address] CBC with Differential (07/28/2020 8:06 PM INTERNET MERCHANT) Pathologist Sig nature WBC 6.20 4.30 - 11.10 [facility] 10*3/L [facility] RBC 4.79 3.93 - 5.25 [facility] 10*6/L [facility] HGB 13.7 11.6 - 15.0 g/dL [facility] HCT 41.6 35.7 - 45.2 % [facility] MCV 86.8 80.6 - 95.5 fL [facility] MCH 28.6 25.9 - 32.8 pg [facility] MCHC 32.9 31.6 - 35.1 g/dL [facility] RDW-SD 40.2 39.0 - 49.9 fL [facility] RDW-CV 12.9 12.0 - 15.5 % [facility] PLT 248 166 - 358 [facility] 10*3/L [facility] MPV 10.0 9.5 - 12.9 fL [facility] NRBC/100 WBC 0.0 0.0 - 10.0 /100 [facility] WBCs [facility] NRBC x10^3 <0.01 10*3/L [facility] GRAN MAT (NEUT) % 61.6 % [facility] IMM GRAN % 0.30 % [facility] LYMPH % 29.8 % [facility] MONO % 7.3 % [facility] EOS % 0.5 % [facility] BASO % 0.5 % [facility] GRAN MAT x10^3(ANC) 3.82 1.88 - 7.[address]/[facility] LABORATORY IMM GRAN x10^3 <0.03 0.00 - 0.[address]/[facility] LABORATORY LYMPH x10^3 1.85 1.32 - 3.[address] LABORATORY MONO x10^3 0.45 0.33 - 0.[address] LABORATORY EOS x10^3 0.03 0.03 - 0.[address] LABORATORY BASO x10^3 0.03 0.01 - 0.[address] LABORATORY Specimen Blood - VENOUS Performing Organization Address City/State/Zipcode Phone Number [facility] CLIA: [id number] [place] [address] documented in this encounter Visit Diagnoses Diagnosis Dizziness - Primary Dizziness and giddiness Chest pain, unspecified type Syncope, unspecified syncope type Abdominal pain, unspecified abdominal lo cation Left upper quadrant abdominal pain PAF (paroxysmal atrial fibrillation) Atrial fibrillation documented in this encounter Administered Medications Medication Order MAR Action Action Date Dose Rate Site apixaban (ELIQUIS) tablet 5 mg Given 07/29/2020 8:24 AM INTERNET MERCHANT 5 mg 5 mg, Oral, DAILY, First dose (after last modification) on Mon07/29/20 at 0900, Until Discontinued, Routine ARIPiprazole (ABILIFY) tablet 10 mg Given 07/28/2020 11:57 PM INTERNET MERCHANT 10 mg 10 mg, Oral, QHS, First dose on Mon07/28/20 at 2315, Until Discontinued, Routine ARIPiprazole (ABILIFY) tablet 5 mg Given 07/29/2020 8:23 AM INTERNET MERCHANT 5 mg 5 mg, Oral, DAILY, First dose on Mon07/29/20 at 0900, Until Discontinued, Routine atorvastatin (LIPITOR) tablet 10 mg Given 07/29/2020 8:23 AM INTERNET MERCHANT 10 mg 10 mg, Oral, QAM, First dose (after last modification) on Mon07/29/20 at 0900, Until Discontinued, Routine benzonatate (TESSALON PERLES) capsule 10 0 mg Given 07/29/2020 8:24 AM INTERNET MERCHANT 100 mg 100 mg, Oral, TIDPRN, Starting Mon07/28/20 at 2255, Until Discontinued, Routine, Cough busPIRone (BUSPAR) tablet 15 mg Given 07/29/2020 8:23 AM INTERNET MERCHANT 15 mg 15 mg, Oral, BID, First dose on Mon07/29/20 at 0800, Until Discontinued, Routine carvediloL (COREG) tablet 25 mg Given 07/29/2020 8:23 AM INTERNET MERCHANT 25 mg 25 mg, Oral, BID MEALS, First dose on Mon07/29/20 at 0800, Until Discontinued, Routine digoxin (LANOXIN) tablet 125 mcg Given 07/29/2020 8:23 AM INTERNET MERCHANT 125 mcg 125 mcg, Oral, DAILY, First dose on Mon07/29/20 at 0900, Until Discontinued, Routine ketorolac (TORADOL) injection 15 mg Given 07/28/2020 11:57 PM INTERNET MERCHANT 15 mg 15 mg, Slow IV Push, Q6HPRN, 4 doses, Starting Mon07/28/20 at 2323, Until Discontinued, Routine, Pain (scale 7-10), honest john rocket crew member approving Restricted medication: ROSINA ZAPATA levETIRAcetam (KEPPRA) tablet 1,000 mg Given 07/29/2020 8:23 AM INTERNET MERCHANT 1,000 mg 1,000 mg, Oral, BID, First dose on Mon07/29/20 at 0800, Until Discontinued, Routine ondansetron (ZOFRAN (PF)) injection 4 mg Given 07/29/2020 3:03 AM INTERNET MERCHANT 4 mg 4 mg, Slow IV Push, Q6HPRN, Starting Mon07/28/20 at 2301, Until Discontinued, Routine, Nausea and Vomiting (N/V) pantoprazole (PROTONIX) EC tablet 40 mg Given 07/29/2020 8:24 AM INTERNET MERCHANT 40 mg 40 mg, Oral, BIDAC, First dose on Mon07/29/20 at 0815, Until Discontinued, Routine pregabalin (LYRICA) capsule 50 mg Given 07/28/2020 11:57 PM INTERNET MERCHANT 50 mg 50 mg, Oral, QHS, First dose on Mon07/28/20 at 2315, Until Discontinued, Routine, honest john rocket crew member approving Restricted medication: ROSINA ZAPATA tiotropium (SPIRIVA) inhalation 18 mcg Given 07/29/2020 7:22 AM INTERNET MERCHANT 18 mcg 18 mcg, Inhalation, DAILY, First dose on Mon07/29/20 at 0900, Until Discontinued, honest john rocket crew member approving Restricted medication: ROSINA ZAPATA Medication Order MAR Action Action Date Dose Rate Site FENTanyl PF (SUBLIMAZE (PF)) Given 07/28/2020 9:02 PM INTERNET MERCHANT 50 mc g injection 50 mcg 50 mcg, Slow IV Push, ONCE, 1 dose, 07/28/20 at 2200, Routine ondansetron (ZOFRAN (PF)) injection 4 mg Given 07/28/2020 9:57 PM INTERNET MERCHANT 4 mg 4 mg, Slow IV Push, ONCE, 1 dose, Tu07/28/20 at 2200, GIGI documented in this encounter Additional Health Concerns Infection Onset Date Last Indicated Resolved Time COVID-19 Rule Out 07/28/2020 07/28/2020 07/28/2020 9: 01 PM INTERNET MERCHANT documented as of this encounter Insurance Payer Benefit Plan / Subscriber ID Effective Phone Address T e Group Dates LYNDSEY SOLORIO [id number] 2011-K[address] Medic [place] [address] MANAGED MEDICAID [place], [place] (Work) [id number] documented as of this encounter
--- OUTSIDE RECORDS SUMMARY | 2020-08-18 22:10 | XMS REPORT | Summary of Care ---
:1980 Author Organization [facility] Address [address] [place] [address] Care Team Providers Name Role Phone ReyesJoshua viramontes Lila Insurance Hmo Yoni Mora MD Primary Care Provider Reason for Referral (Routine) Status Reason Specialty Diagnoses / Referred By Referred To Procedures Contact Contact New Request Cardiology Diagnoses Palpitations Madelyn Procedures Cardiac Monitoring 48 hours MD Gucci [address] [place], [place] [id number] Reason for Visit Reason Comments New Patient (Routine) Status Reason Specialty Diagnoses / Referred By Referred To Procedures Contact Contact New Request IM-CLINICAL CARDIAC Diagnoses Syncope, unspecified syncope type PAF (paroxysmal atrial fibrillation) Lee Alexander MD ELECTROPHYSIOLOGY / Procedures Discharge Follow-Up: Specialty Service IM-CLINICAL CARDIAC ELECTROPHYSIOLOGY; 1 Week [address] [facility] Cardiac [place], [place] Electrophysiology [phone] Encounter Details Date Type Department Care Team Description 08/05/2020 Office Visit [facility] Carmerrynnopoulos, Palpitation s (Primary Dx); Cardiology, Akila Duckworth MD Syncope and collapse [place] [address] [place] [address] [id number] [place] [phone] Allergies Active Allergy Reactions Severity Noted Date [...] as of this encounter (statuses as of 08/05/2020) Medications Medication Sig Dispensed Refills Start Date [...] venlafaxine XR 150 mg 150 mg at 1 06/16/2017 Active 24 hr capsule bedtime. ALPRAZolam [...] PM carvediloL 25 mg Take 1 tablet by 180 tablet 3 04/10/2020 Active tabletIndications: History of mouth 2 (two) times DVT (deep vein thrombosis) daily with meals. digoxin 125 mcg (0.125 mg) Take 1 tablet by 30 tablet 3 2019 Active tabletIndications: History of mouth daily. DVT (deep vein thrombosis), Inappropriate sinus tachycardia fluticasone furoate-vilanteroL Inhale 1 Puff daily. 60 Each 11 07/16/2020 Active (BREO ELLIPTA) 200-25 mcg/dose DsDvIndications: Moderate persistent asthma without complication tiotropium bromide (SPIRIVA Inhale 1 Puff daily. 4 g 11 Active RESPIMAT) 2.5 mcg/actuation MistIndications: Moderate persistent asthma without complication benzonatate (TESSALON PERLES) Take 1 capsule by 60 capsule 11 Active 100 mg capsuleIndications: mouth 3 (three) times Moderate persistent asthma daily as needed for without complication Cough. pregabalin (LYRICA) 50 mg Take 50 mg by mouth 0 Active capsule at bedtime. carBAMazepine (TEGRETOL) 200 Take 200 mg by mouth 0 Active mg tablet at bedtime. esomeprazole (NEXIUM) 20 mg Take 20 mg by mouth 2 0 Active capsule (two) times daily before breakfast and dinner. documented as of this encounter (statuses as of 08/05/2020) Active Problems Problem Noted Date Inappropriate sinus tachycardia 07/29/2020 Functional neurological symptom disorder with weakness or [...] Added automatically from request for yara arslan [id number] Abdominal pain, unspecified abdominal location 018 Overview: Added automatically from request for yara arslan [id number] Nausea and vomiting, intractability of vomiting not sp ecified, unspecified 07/13/2018 vomiting type Overview: Added automatically from request for yara arslan [id number] Non-cardiac chest pain 04/27/2018 Essential hypertension 04/27/2018 Pacemaker 04/27/2018 PAF (paroxysmal atrial fibrillation) 04/27/2018 History of cardiac pacemaker in situ 08/23/2017 Tachycardia, unspecified 06/22/2017 Elevated liver enzymes 07/23/2014 Pseudoseizure 04/15/2014 Left sided numbness 03/22/2014 Prediabetes 09/24/2013 Loss of weight 09/24/2013 Hypothyroidism 09/24/2013 Overview: ICD10 Diagnosis Term Ripshear Operator Utility Hypoglycemia 08/21/2013 Overview: ICD10 Diagnosis Term Ripshear Operator Utility documented as of this encounter (statuses as of 08/05/2020) Resolved Problems Problem Noted Date Resolved Date Stroke-like symptoms 05/10/2020 05/12/2020 Stroke 06/15/2019 05/12/2020 Metabolic syndrome X 07/23/2014 07/23/2014 documented as of this encounter (statuses as of 08/05/2020) Immunizations Name Administration Dates Next Due Influenza [...] been in contact with No / Unsure 08/05/2020 10:16 AM STOCK DIGGER someone who was confirmed or suspected to have Coronavirus / COVID-19? documented as of this encounter Last Filed Vital Signs Vital Sign Reading Time Taken Comments Blood Pressure 135/93 08/05/2020 10:23 AM STOCK DIGGER Pulse 115 08/05/2020 10:23 AM STOCK DIGGER Temperature 36.8 C (98.2 F) 08/05/2020 10:23 AM STOCK DIGGER Respiratory Rate - - Oxygen Saturation 97% 08/05/2020 10:23 AM STOCK DIGGER Inhaled Oxygen Concentration - - Weight 55.3 kg (122 lb) 08/05/2020 10:23 AM STOCK DIGGER Height 149.9 cm (4' 11") 08/05/2020 10:23 AM STOCK DIGGER Body Mass Index 24.64 08/05/2020 10:23 AM STOCK DIGGER documented in this encounter Progress Notes Gucci Joshi MD - 08/05/2020 10:20 AM CST Cardiac [facility] Note Reason for Evaluation / Chief Complaint: chest pains and palpitations Referring Provider: Dr. Hines HPI: Jenni Rivera is a 40 year old female with h/o atrial fibrillation, "mini strokes," syncope s/p ILR with pauses -> pacemaker implant by Dr. Parmar complicated by infection x 2 moved to right side, asthma/bronchitis, past tobacco use, palpitations, referred for second opinion. She was seen by Dr. Sheehan for palpitations, and evaluation revealed sinus tachycardia. She stated that for 2018 she noticed sob, chest pains, and palpitations multiple times per month (not daily). She was admitted to [facility] for syncope, cp, sob, palpitations. She was given IV digoxin for abnormal heart rhythm labelled as "VT" and unfortunately developed digoxin toxicity. She underwent EP study by nv which showed no evidence of SVT, VT/VF, or accessory pathways. She was admitted to [facility] for stroke rule out, and her pacemaker evaluation was normal withoutarrhythmias. She was admitted again to [facility] for syncope, and sent home for close follow-up with cardiology and EP. She feels ok today. Past Medical History: Diagnosis Date A-fib Anemia [...] (transient ischemic attack) Transaminitis Vitamin D deficiency Social History Socioeconomic History Marital status: Spouse [...] file Gets together: Not on file Attends mandaeism service: Not on file Active member of [...] Current Outpatient Medications Medication Sig Dispense Refill carBAMazepine (TEGRETOL) 200 [...] 2 (two) times daily. Indications: Recurrent DVT (Patient taking differently: Take 5 mg by mouth daily. Indications: Recurrent DVT) 180 tablet 3 carvediloL 25 mg tablet [...] Strip 3 lancets (TRUEPLUS LANCETS) 33 gauge [facility] Use as directed. R 73.03, Check once daily 100 Each 3 ALPRAZolam (XANAX) 0.25 mg tablet Take 0.25 mg by mouth at bedtime as needed. ABILIFY 10 mg tablet TK 1 T [...] Allergy/Immunology: denies complaint Physical Exam: Vitals: Vitals: 08/05/20 1023 BP: (!) 135/93 BP Location: Right arm Patient Position: Sitting BP CUFF SIZE: Adult Medium Pulse: 115 Temp: 36.8 C (98.2 F) TempSrc: Temporal Artery SpO2: 97% Weight: 122 lb (55.3 kg) Height: 4' 11" (1.499 m) Appearance: Well developed and well nourished female in no acute distress Eyes: Remarkable for glasses Musculoskeletal: full range of motion, and ambulates without assistance. Neurologic: Alert and oriented x 4. Psychiatric: Pleasant, no suicidal or homicidal ideation. Skin: Device wound in the right infraclavicular fossa is without infection or hematoma LABS / DATA: CBC WBC x10^3 (/uL) Date Value 03/24/2014 5.6 WBC (10*3/L) Date Value 07/29/2020 6.16 RBC x10^6 (/uL) Date Value 03/24/2014 4.51 RBC (10*6/L) Date Value 07/29/2020 4.62 PLT x10^3 (/uL) Date Value 03/24/2014 220 PLT (10*3/L) Date Value 07/29/2020 230 HGB Date Value 07/29/2020 13.4 g/dL 03/24/2014 13.0 G/DL HCT (%) Date Value 07/29/2020 40.6 03/24/2014 38.8 BMP NA Date Value 07/29/2020 138 mmol/L 03/24/2014 136 MMOL/L SODIUM-Q (mmol/L) Date Value 07/23/2014 145 K Date Value 07/29/2020 4.0 mmol/L 03/24/2014 4.2 MMOL/L POTASSIUM-Q (mmol/L) Date Value 07/23/2014 4.9 CALCIUM Date Value 07/29/2020 9.5 mg/dL 03/24/2014 9.3 MG/DL CALCIUM-Q (mg/dL) Date Value 07/23/2014 10.3 (H) CL Date Value 07/29/2020 99 mmol/L 03/24/2014 98 MMOL/L CHLORIDE-Q (mmol/L) Date Value 07/23/2014 105 BUN Date Value 07/29/2020 14 mg/dL 03/24/2014 20 MG/DL UREA NITROGEN (BUN)-Q (mg/dL) Date Value 07/23/2014 12 CREATININE Date Value 07/29/2020 0.70 mg/dL 03/24/2014 0.71 MG/DL CREATININE-Q (mg/dL) Date Value 07/23/2014 0.70 GLUCOSE Date Value 07/29/2020 116 mg/dL (H) 03/24/2014 114 MG/DL (H) GLUCOSE-Q (mg/dL) Date Value 07/23/2014 93 CO2 TOTAL Date Value 07/29/2020 32 mmol/L (H) 03/24/2014 30 MMOL/L CARBON DIOXIDE-Q (mmol/L) Date Value 07/23/2014 24 Hepatic Function Panel ALBUMIN Date Value 07/28/2020 4.7 g/dL 03/22/2014 4.1 G/DL ALBUMIN-Q (g/dL) Date Value 07/23/2014 4.8 T PROTEIN Date Value 07/28/2020 8.1 g/dL 03/22/2014 7.0 G/DL PROTEIN, TOTAL-Q (g/dL) Date Value 07/23/2014 7.7 TOTAL BILI Date Value 07/28/2020 0.6 mg/dL 03/22/2014 0.8 MG/DL BILIRUBIN, TOTAL-Q (mg/dL) Date Value 07/23/2014 0.3 BILI UNCON Date Value 07/28/2020 0.6 mg/dL 03/22/2014 0.4 MG/DL BILI CONJ Date Value 07/28/2020 0.0 mg/dL 03/22/2014 0.0 MG/DL ALT(SGPT) (U/L) Date Value 05/30/2019 26 03/22/2014 68 (H) ALT-Q (U/L) Date Value 07/23/2014 24 ALTv (U/L) Date Value 07/28/2020 25 AST(SGOT) (U/L) Date Value 07/28/2020 36 03/22/2014 59 (H) AST-Q (U/L) Date Value 07/23/2014 23 ALK PHOS (U/L) Date Value 07/28/2020 119 03/22/2014 107 ALKALINE PHOSPHATASE-Q (U/L) Date Value 07/23/2014 121 (H) PROTIME (SEC) Date Value 03/22/2014 13.2 PROTIME PATIENT (Seconds) Date Value 07/28/2020 13.1 TSH Date Value 05/10/2020 8.45 mIU/L (H) [...] cad seen Cardiac Device Evaluation: Evaluation performed: program Device: St. JudeDual lead Pacemaker. Model#: 2272 Mode: ddd 60-125 bpm Battery: 9 years Atrial Lead: < 1% pacing Sensin mV Impedance: 440 Ohms Threshold: 1 V @ 0.4 ms Right Ventricular Lead: < 1% pacing Sensin.2 mV Impedance: 410 Ohms Threshold: 1 V @ 0.4 ms Arrhythmias: + tachycardia driven by atrium so could be sinus vs atrial tachycardia. Impression: myriad of complaints including palpitations, cp, sob, fatigue, joint/back pains. Deviceevaluation showed tachycardia and unclear if sinus vs atrial tachycardia. Will get 48 hours holter to further evaluate her daily palpitations. Recommendation(s): 1. As above 2. F/u ep after above 3. F/u cardiology and PCP as scheduled 4. ER warnings Thank you for allowing us to participate in the care of your patient. Please feel free to contact us for any questions or if we can be of further assistance. Gucci Joshi MD 08/05/2020 10:49 AM K DIGGER documented in this encounter Plan of Treatment Date Type Specialty Care Team Description 09/11/2020 Nurse Visit Cardiology Visit, Adc Nurse 10/02/2020 Office Visit Cardiology Navi Hines MD [address] [phone] 11/05/2020 Office Visit Pulmonary Disease Tucker Guy, [address] [place] [phone] 07/21/2021 Office Visit Pulmonary Disease Heena Bailey MD [address] [address] Name Type Priority Associated Diagnoses Order S chedule Cardiac Monitoring HEART STATION Routine Palpitations 1 Occurr ences 48 hours starting 2019 until 1 Health Maintenance Due Date Last Done Comments VARICELLA VACCINES (1 of 2 - 2-dose 1982 childhood series) DTaP,Tdap,and Td Vaccines (1 - Tdap) 2000 PAP SMEAR 06/21/2007 06/21/2004 PNEUMOCOCCAL 0-64 YEARS COMBINED SERIES (3 06/23/201806/23, 11/16/2015 of 3 - PCV13) INFLUENZA VACCINE (#1) 2020 11/16/2015 Depression Screening 12/09/2020 12/10/2019 documented as of this encounter Implants Implanted Type Area Asphalt Machine Operator Device Shelf Expiration Model / Identifier Date Serial / Lot Tendril Mri,A Lead-11/01/[address] [employer] RA- [id number] / Implanted: Qty: 1 on 11/01/2017 by Imtiaz Soto MD [id number] / Description:This implant is MR Condition al and a member of a 1.5T Only MR Conditional System. Tenril Mri,V Lead-11/01/[address] [employer] [id number] / Implanted: Qty: 1 on 11/01/2017 by Imtiaz Soto MD [id number] / Description:This implant is MR Condition al and a member of a 1.5T Only MR Conditional System. Assurity Mri-11/01/[address] [employer] [id number] / Implanted: Qty: 1 on 11/01/2017 by Imtiaz Soto MD [id number] / Description:This device ids MR Condition al for a 1.5T Scanner Only. documented as of this encounter Results Not on filedocumented in this encounter Visit Diagnoses Diagnosis Palpitations - Primary Syncope and collapse documented in this encounter Insurance Payer Benefit Plan / Subscriber ID Effective Phone Address [facility] Group Dates LYNDSEY SOLORIO [id number] 2011-Kobe [address] Medic [place] [address] MANAGED MED[place]ID [place], [place] (Work) [phone] documented as of this encounter
--- OUTSIDE RECORDS SUMMARY | 2020-08-18 22:11 | XMS REPORT | Summary of Care ---
:1980 Author Organization [facility] Address [address] [place] [address] Care Team Providers Name Role Phone Eric Joshua Sharp Insurance Hmo Yoni Mora MD Primary Care Provider Reason for Visit Reason Comments NURSE VISIT 48 hr monitor (Routine) Status Reason Specialty Diagnoses / Procedures Referred By C ontact Referred To Contact Closed Cardiology Diagnoses Palpitations Carayannopoulos, Procedures Cardiac Monitoring 48 hours MD Gucci [address] [place], [place] [address] Phone: Encounter Details Date Type Department Care Team Description 08/06/2020 Nurse Visit [facility] Cardiology- Silver Prieto MD [address] [facility] [address] [place], [place] [address] Palpitations [place] Visit, [facility] Nurse [address] [place] [address], [address] [place] [phone] Allergies Active Allergy Reactions Severity Noted Date [...] as of this encounter (statuses as of 08/06/2020) Medications Medication Sig Dispensed Refills Start Date [...] 1 06/16/2017 Active venlafaxine XR 150 mg 150 [...] as of this encounter (statuses as of 08/06/2020) Active Problems Problem Noted Date Inappropriate sinus [...] Added automatically from request for yara arslan [id number] Abdominal pain, unspecified abdominal location 018 Overview: Added automatically from request for yara arslan [id number] Nausea and vomiting, intractability of vomiting not sp ecified, unspecified 07/13/2018 vomiting type Overview: Added automatically from request for yara arslan [id number] Non-cardiac chest pain 04/27/2018 Essential hypertension 04/27/2018 Pacemaker 04/27/2018 PAF (paroxysmal atrial fibrillation) 04/27/2018 History of cardiac pacemaker in situ 08/23/2017 Tachycardia, unspecified 06/22/2017 Elevated liver enzymes 07/23/2014 Pseudoseizure 04/15/2014 Left sided numbness 03/22/2014 Prediabetes 09/24/2013 Loss of weight 09/24/2013 Hypothyroidism 09/24/2013 Overview: ICD10 Diagnosis Term Machine Lay Out Worker Utility Hypoglycemia 08/21/2013 Overview: ICD10 Diagnosis Term Machine Lay Out Worker Utility documented as of this encounter (statuses as of 08/06/2020) Resolved Problems Problem Noted Date Resolved Date Stroke-like symptoms 05/10/2020 05/12/2020 Stroke 06/15/2019 05/12/2020 Metabolic syndrome X 07/23/2014 07/23/2014 documented as of this encounter (statuses as of 08/06/2020) Immunizations Name Administration Dates Next Due Influenza [...] with No / Unsure 08/05/2020 10:16 AM ROCK SINGER someone who was confirmed or suspected to have Coronavirus / COVID-19? documented as of this encounter Last Filed Vital Signs Not on filedocumented in this encounter Progress Notes Mayi Chauhan, RN - 08/06/2020 4:00 PM CST48 hour holter monitor applied to patient, tolerated well. Return agreement letter signed, understanding verbalized. Monitor to be returned by 08/10/20 @ 8 am SINGER documented in this encounter Plan of Treatment Date Type Specialty Care Team Description 09/01/2020 Laboratory Only Cardiology Pacemaker/Icd, Adc 09/09/2020 Office Visit Cardiology Gucci Joshi MD [address] [place], [place] [address] 10/02/2020 Office Visit Cardiology Navi Hines MD [address] [place] [address] [place] [phone] 11/05/2020 Office Visit Pulmonary Disease Tucker Guy DO [address] [place] [address] [phone] 07/21/2021 Office Visit Pulmonary Disease Heena Bailey MD [address] [address] [phone] Health Maintenance Due Date Last Done Comments VARICELLA VACCINES (1 of 2 - 2-dose 1982 childhood series) DTaP,Tdap,and Td Vaccines (1 - Tdap) 2000 PAP SMEAR 06/21/2007 06/21/2004 PNEUMOCOCCAL 0-64 YEARS COMBINED SERIES (3 06/23/201806/23, 11/16/2015 of 3 - PCV13) INFLUENZA VACCINE (#1) 2020 11/16/2015 Depression Screening 12/09/2020 12/10/2019 documented as of this encounter Implants Implanted Type Area Construction Representative Device Shelf Expiration Model / Identifier Date Serial / Lot Tendril Mri,A Lead-11/01/[address] [employer] RA- [id number] / Implanted: Qty: 1 on 11/01/2017 by Imtiaz Soto MD [id number] / Description:This implant is MR Condition al and a member of a 1.5T Only MR Conditional System. Tenril Mri,V Lead-11/01/[address] [employer] [id number] / Implanted: Qty: 1 on 11/01/2017 by Imtiaz Soto MD [id number] / Description:This implant is MR Condition al and a member of a 1.5T Only MR Conditional System. Assurity Mri-11/01/[address] [employer] [id number] / Implanted: Qty: 1 on 11/01/2017 by Imtiaz Soto MD [id number] / Description:This device ids MR Condition al for a 1.5T Scanner Only. documented as of this encounter Results Not on filedocumented in this encounter Visit Diagnoses Diagnosis Palpitations documented in this encounter Insurance Payer Benefit Plan / Subscriber ID Effective Phone Address [facility] Group Dates LYNDSEY SOLORIO [id number] 2011-[address] [facility] [place] [address] MANAGED MEDICAID [place], [place] documented as of this encounter
--- OUTSIDE RECORDS SUMMARY | 2020-08-18 22:11 | XMS REPORT | Summary of Care ---
:1980 Author Organization [facility] Address [address] [place] [address] Care Team Providers Name Role Phone ReyesJoshua viramontes Lila Insurance Hmo Yoni Mora MD Primary Care Provider Reason for Referral (Routine) Status Reason Specialty Diagnoses / Referred By Referred To Procedures Contact Contact New Request Cardiology Diagnoses Palpitations Madelyn Procedures Cardiac Monitoring 48 hours MD Gucci [address] [place], [place] [id number] Reason for Visit Reason Comments New Patient (Routine) Status Reason Specialty Diagnoses / Referred By Referred To Procedures Contact Contact New Request IM-CLINICAL CARDIAC Diagnoses Syncope, unspecified syncope type PAF (paroxysmal atrial fibrillation) Lee Alexander MD ELECTROPHYSIOLOGY / Procedures Discharge Follow-Up: Specialty Service IM-CLINICAL CARDIAC ELECTROPHYSIOLOGY; 1 Week 301 [facility] Cardiac [place], [place] Electrophysiology [phone] Encounter Details Date Type Department Care Team Description 08/05/2020 Office Visit [facility] Carmerrynnopoulos, Palpitation s (Primary Dx); Cardiology, Akila Duckworth MD Syncope and collapse [place] [address] [place] [address] [id number] [place] [phone] [phone] Allergies Active Allergy Reactions Severity Noted Date [...] Added automatically from request for yara arslan [id number] Abdominal pain, unspecified abdominal location 018 Overview: Added automatically from request for yara arslan [id number] Nausea and vomiting, intractability of vomiting not sp ecified, unspecified 07/13/2018 vomiting type Overview: Added automatically from request for yara arslan [id number] Non-cardiac chest pain 04/27/2018 Essential hypertension 04/27/2018 Pacemaker 04/27/2018 PAF (paroxysmal atrial fibrillation) 04/27/2018 History of cardiac pacemaker in situ 08/23/2017 Tachycardia, unspecified 06/22/2017 Elevated liver enzymes 07/23/2014 Pseudoseizure 04/15/2014 Left sided numbness 03/22/2014 Prediabetes 09/24/2013 Loss of weight 09/24/2013 Hypothyroidism 09/24/2013 Overview: ICD10 Diagnosis Term Dedicated Intermodal Truck Driver Utility Hypoglycemia 08/21/2013 Overview: ICD10 Diagnosis Term Dedicated Intermodal Truck Driver Utility documented as of this encounter (statuses [...] with No / Unsure 08/05/2020 10:16 AM PARTS PICKER someone who was confirmed or suspected to have Coronavirus / COVID-19? documented as of this encounter Last Filed Vital Signs Vital Sign Reading Time Taken Comments Blood Pressure 135/93 08/05/2020 10:23 AM PARTS PICKER Pulse 115 08/05/2020 10:23 AM PARTS PICKER Temperature 36.8 C (98.2 F) 08/05/2020 10:23 AM PARTS PICKER Respiratory Rate - - Oxygen Saturation 97% 08/05/2020 10:23 AM PARTS PICKER Inhaled Oxygen Concentration - - Weight 55.3 kg (122 lb) 08/05/2020 10:23 AM PARTS PICKER Height 149.9 cm (4' 11") 08/05/2020 10:23 AM PARTS PICKER Body Mass Index 24.64 08/05/2020 10:23 AM PARTS PICKER documented in this encounter Progress Notes Gucci [...] month (not daily). She was admitted to [facility] for syncope, cp, sob, palpitations. She was given IV digoxin for abnormal heart rhythm labelled as "VT" and unfortunately developed digoxin toxicity. She underwent EP study by wv which showed no evidence of SVT, VT/VF, or accessory pathways. She was admitted to [facility] for stroke rule out, and her pacemaker evaluation was normal withoutarrhythmias. She was admitted again to [facility] for syncope, and sent home for close [...] file Gets together: Not on file Attends yazidism service: Not on file Active member of [...] Strip 3 lancets (TRUEPLUS LANCETS) 33 gauge [facility] [place] [place] Use as directed. R 73.03, Check once [...] assistance. Gucci Joshi MD 08/05/2020 10:49 AM S PICKER documented in this encounter Plan of Treatment Date Type Specialty Care Team Description 09/11/2020 Nurse Visit Cardiology Visit, Adc Nurse 10/02/2020 Office Visit Cardiology Navi Hines MD [address] [phone] 11/05/2020 Office Visit Pulmonary Disease Tucker Guy, [address] [place] [phone] 07/21/2021 Office Visit Pulmonary Disease Heena Bailey MD [address] 77 15 Name Type Priority Associated [...] of this encounter Implants Implanted Type Area Traffic Administrator Device Shelf Expiration Model / Identifier Date Serial / Lot Tendril Mri,A Lead-11/01/[address] [employer] RA- [id number] / Implanted: Qty: 1 on 11/01/2017 by Imtiaz Soto MD [id number] / Description:This implant is MR Condition al and a member of a 1.5T Only MR Conditional System. Tenril Mri,V Lead-11/01/[address] [employer] [id number] / Implanted: Qty: 1 on 11/01/2017 by Imtiaz Soto MD [id number] / Description:This implant is MR Condition al and a member of a 1.5T Only MR Conditional System. Assurity Mri-11/01/[address] [employer] [id number] / Implanted: Qty: 1 on 11/01/2017 by Imtiaz Soto MD [id number] / Description:This device ids MR Condition al for a 1.5T Scanner Only. documented as of this encounter Results Not on filedocumented in this encounter Visit Diagnoses Diagnosis Palpitations - Primary Syncope and collapse documented in this encounter Insurance Payer Benefit Plan / Subscriber ID Effective Phone Address [facility] Dates LYNDSEY SOLORIO [id number] 2011-Kobe [address] [place] [address] MANAGED MEDICAID [place], [place] (Work) [phone] documented as of this encounter
--- OUTSIDE RECORDS SUMMARY | 2020-08-18 22:12 | XMS REPORT | Summary of Care ---
:1980 Author Organization [facility] Address [address] [place] [address] Care Team Providers Name Role Phone Joshua Reyes Lila Insurance Hmo Yoni Mora MD Primary Care Provider Reason for Visit Reason Comments Refill Request Encounter Details Date Type Department Care Team Description 08/10/2020 Telephone [facility] Cardiology- Navi Hines MD Refill Request [address] [address] [address] [place] [address] [place] [address] [phone] Allergies Active Allergy Reactions Severity Noted Date [...] as of this encounter (statuses as of 08/11/2020) Medications Medication Sig Dispensed Refills Start Date [...] Take 1 capsule by 60 capsule 11 1 Active 100 mg capsuleIndications: mouth 3 (three) [...] as of this encounter (statuses as of 08/11/2020) Active Problems Problem Noted Date Inappropriate sinus [...] Added automatically from request for yara arslan [id number] Abdominal pain, unspecified abdominal location 018 Overview: Added automatically from request for yara arslan [id number] Nausea and vomiting, intractability of vomiting not sp ecified, unspecified 07/13/2018 vomiting type Overview: Added automatically from request for yara arslan [id number] Non-cardiac chest pain 04/27/2018 Essential hypertension 04/27/2018 Pacemaker 04/27/2018 PAF (paroxysmal atrial fibrillation) 04/27/2018 History of cardiac pacemaker in situ 08/23/2017 Tachycardia, unspecified 06/22/2017 Elevated liver enzymes 07/23/2014 Pseudoseizure 04/15/2014 Left sided numbness 03/22/2014 Prediabetes 09/24/2013 Loss of weight 09/24/2013 Hypothyroidism 09/24/2013 Overview: ICD10 Diagnosis Term 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 documented as of this encounter Last Filed Vital Signs Not on filedocumented in this encounter Miscellaneous Notes Telephone Encounter - Jo Ruiz RN - 08/11/2020 4:24 PM CSTDuplicate encounter. elephone Encounter - Mayi Ramirez - 08/10/2020 12:57 PM CSTPaloulou Rivera is a 40 year old female patient calling to check status of refill request on Digoxin, says she has been out since last . Please call. [id number] - [place], [place] - [address] [facility] [address] [facility] [phone] documented in this encounter Plan of Treatment Date Type Specialty Care Team Description 09/01/2020 Laboratory Only Cardiology Pacemaker/Icd, Adc 09/09/2020 Office Visit Cardiology Gucci Joshi MD [address] [place], [place] [address] 10/02/2020 Office Visit Cardiology Navi Hines MD [address] [phone] 11/05/2020 Office Visit Pulmonary Disease Tucker Guy DO [address] [place] [phone] 07/21/2021 Office Visit Pulmonary Disease Heena Bailey MD [address] [address] [phone] Health Maintenance Due Date Last Done Comments VARICELLA VACCINES (1 of 2 - 2-dose 1982 childhood series) DTaP,Tdap,and Td Vaccines (1 - Tdap) 2000 PAP SMEAR 06/21/2007 06/21/2004 PNEUMOCOCCAL 0-64 YEARS COMBINED SERIES (3 06/23/201806/23, 11/16/2015 of 3 - PCV13) INFLUENZA VACCINE (#1) 2020 11/16/2015 Depression Screening 12/09/2020 12/10/2019 documented as of this encounter Implants Implanted Type Area Process Trainer Device Shelf Expiration Model / Identifier Date Serial / Lot Tendril Mri,A Lead-11/01/[address] [employer] RA- [id number] / Implanted: Qty: 1 on 11/01/2017 by Imtiaz Soto MD [id number] / Description:This implant is MR Condition al and a member of a 1.5T Only MR Conditional System. Tenril Mri,V Lead-11/01/[address] [employer] [id number] / Implanted: Qty: 1 on 11/01/2017 by Imtiaz Soto MD [id number] / Description:This implant is MR Condition al and a member of a 1.5T Only MR Conditional System. Assurity Mri-11/01/[address] [employer] [id number] / Implanted: Qty: 1 on 11/01/2017 by Imtiaz Soto MD [id number] / Description:This device ids MR Condition al for a 1.5T Scanner Only. documented as of this encounter Results Not on filedocumented in this encounter Insurance Payer Benefit Plan / Subscriber ID Effective Phone Address [employer] Dates LYNDSEY SOLORIO [id number] 2011-Kobe PERALTA Medic [facility] [place] [address] MANAGED MEDICAID [place] documented as of this encounter
--- OUTSIDE RECORDS SUMMARY | 2020-08-18 22:12 | XMS REPORT | Summary of Care ---
:1980 Author Organization [facility] Address [address] [place] [address] Care Team Providers Name Role Phone Joshua Reyes Lila Insurance Hmo Yoni Mora MD Primary Care Provider Reason for Visit Reason Comments Refill Request Encounter Details Date Type Department Care Team Description 08/10/2020 Refill [facility] Cardiology- Navi Hines MD Refill Request [address], Suite [facility] [address] [place] [address] [place] [address] [phone] Allergies Active Allergy Reactions Severity Noted Date [...] (two) times vein thrombosis) daily with meals. fluticasone Inhale 1 Puff 60 Each 07/16/2020 Act corey furoate-vilanteroL (BREO daily. ELLIPTA) 200-25 mcg/dose DsDvIndications: Moderate persistent asthma without complication tiotropium bromide Inhale 1 Puff 4 g 07/16/2020 Active (SPIRIVA RESPIMAT) 2.5 daily. mcg/actuation [...] (two) times daily before breakfast and dinner. digoxin 125 mcg (0.125 Take 1 tablet 90 tablet 1 08/11/2020 Active mg) tabletIndications: by mouth History of DVT (deep daily. vein thrombosis), Inappropriate sinus tachycardia digoxin 125 mcg (0.125 Take 1 tablet 30 tablet 3 04/14/2020 Discontinued mg) tabletIndications: by mouth /2019 (Reorder) History of DVT (deep daily. vein thrombosis), Inappropriate sinus tachycardia documented as [...] Added automatically from request for yara arslan [id number] Abdominal pain, unspecified abdominal location 018 Overview: Added automatically from request for yara arslan [id number] Nausea and vomiting, intractability of vomiting not sp ecified, unspecified 07/13/2018 vomiting type Overview: Added automatically from request for yara arslan [id number] Non-cardiac chest pain 04/27/2018 Essential hypertension 04/27/2018 Pacemaker 04/27/2018 PAF (paroxysmal atrial fibrillation) 04/27/2018 History of cardiac pacemaker in situ 08/23/2017 Tachycardia, unspecified 06/22/2017 Elevated liver enzymes 07/23/2014 Pseudoseizure 04/15/2014 Left sided numbness 03/22/2014 Prediabetes 09/24/2013 Loss of weight 09/24/2013 Hypothyroidism 09/24/2013 Overview: ICD10 Diagnosis 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 documented as of this encounter Last Filed Vital Signs Not on filedocumented in this encounter Miscellaneous Notes Telephone Encounter - Jo Ruiz RN - 08/11/2020 4:26 PM CSTRefill sent per guidelines, digoxin level on file from 07.29.2020 elephone Encounter - Abdifatah Lee - 08/11/2020 1:44 PM CSTPatient pharmacy is calling to check on status of requested prescription refill, states that medication has been pending since 08/06/2020, mentioned to pharmacy that earliest refill request that I could see was 08/10 for this specific medication. Rerouted encounter to Cardiology Nurse pool. Thank you. WASHER Telephone Encounter - Marisa Reyes - 08/10/2020 2:37 PM CSTMasterloulou Rivera is a 40 year old female Aubree with pharmacy calling stating patient needs a refill on medication. Please call. [facility][phone] - [place] [address] [address] [facility] [address] [facility] [phone] elephone Encounter - Hector Clarke - 08/10/2020 8:41 AM CSTPatient states "This is ridiculous, this medication should have been refilled." Patient requesting a call from nurse in regards to medication refill documented in this encounter Plan of Treatment Date Type Specialty Care Team Description 09/01/2020 Laboratory Only Cardiology Pacemaker/Icd, Adc 09/09/2020 Office Visit Cardiology Gucci Joshi MD [address] [place] [address] 10/02/2020 Office Visit Cardiology Navi Hines MD [address] [place] [address] [phone] 11/05/2020 Office Visit Pulmonary Disease Tucker Guy, DO [facility] [place] [address] 07/21/2021 Office Visit Pulmonary Disease Heena Bailey MD [address] [place] [phone] Health Maintenance Due Date Last Done Comments VARICELLA VACCINES (1 of 2 - 2-dose 1982 childhood series) DTaP,Tdap,and Td Vaccines (1 - Tdap) 2000 PAP SMEAR 06/21/2007 06/21/2004 PNEUMOCOCCAL 0-64 YEARS COMBINED SERIES (3 06/23/201806/23, 11/16/2015 of 3 - PCV13) INFLUENZA VACCINE (#1) 2020 11/16/2015 Depression Screening 12/09/2020 12/10/2019 documented as of this encounter Implants Implanted Type Area Data Control Assistant Device Shelf Expiration Model / Identifier Date Serial / Lot Tendril Mri,A Lead-11/01/[address] [employer] RA- [id number] / Implanted: Qty: 1 on 11/01/2017 by Imtiaz Soto MD [id number] / Description:This implant is MR Condition al and a member of a 1.5T Only MR Conditional System. Tenril Mri,V Lead-11/01/[address] [employer] [id number] / Implanted: Qty: 1 on 11/01/2017 by Imtiaz Soto MD [id number] / Description:This implant is MR Condition al and a member of a 1.5T Only MR Conditional System. Assurity Mri-11/01/[address] [employer] [id number] / Implanted: Qty: 1 on 11/01/2017 by Imtiaz Soto MD [id number] / Description:This device ids MR Condition al [...] Address T e Group Dates LYNDSEY SOLORIO [id number] 2011-Kobe PERALTA [facility] [place] [address] MANAGED MEDICAID [place] documented as of this encounter
[2020-08-18 23:19] LABS: Absolute Lymphocytes (CBC) 2.4 K/uL (0.7-4.9); Hematocrit 38.1 % (36.0-45.0); Lymphocytes % 35.8 % (15.3-44.8); MPV 8.3 fL (7.6-11.3); Protime INR 0.91; RBC Red Blood Cell Count 4.43 M/uL (3.86-4.86)
[2020-08-18] MEDS ORDERED: HYDROMORPHONE HCL 0.5 MG/0.5 ML INJ ONE (23:33)
[2020-08-18] MEDS ORDERED: ONDANSETRON 4 MG/2 ML VIAL ONE (23:33)
[2020-08-18 23:34] LABS: ALT/SGPT 27 U/L (12-78); AST/SGOT 18 U/L (15-37); Albumin 3.5 g/dL (3.4-5.0); Alkaline Phosphatase 123 U/L (45-117); BUN Blood Urea Nitrogen 11 mg/dL (7-18); Bicarbonate 27 mmol/L (21-32); Bilirubin Direct < 0.1 mg/dL (0-0.2); Bilirubin Total 0.1 mg/dL (0.2-1.0); Glucose Level 123 mg/dL (74-106); Magnesium 2.2 mg/dL (1.8-2.4); NT PRO-BNP 29 pg/mL (<125); Potassium 3.6 mmol/L (3.5-5.1); Protein, Total 7.2 g/dL (6.4-8.2); Sodium Level 142 mmol/L (136-145); Troponin (Emerg Dept Use Only) < 0.02 ng/mL (0.0-0.045)
--- NOTE | 2020-08-18 23:45 | EDPHYS ---
Physician Documentation [facility] Name: Jenni Draper Age: 40 yrs Sex: Female : 1980 Arrival Date: 08/18/2020 Time: 21:58 Bed 16 Private MD: Diya Mora Atiq ED Physician Caio Aceves HPI: 08/18 22:26 This 40 yrs old Female presents to ER via Wheelchair with complaints of Chest pm1 Pain > 30 y/o, Dizziness, Shortness Of Breath, Headache. 22:26 The patient or guardian reports chest pain that is located primarily in the anterior pm1 aspect of left upper chest. The pain radiates to the left arm. Associated signs and symptoms: Pertinent positives: cough, dizziness, near-syncope, shortness of breath. The chest pain is described as a pressure. Duration: The patient or guardian reports a single episode, that is still ongoing. Modifying factors: The symptoms are alleviated by nothing. the symptoms are aggravated by exertion. Severity of pain: in the emergency department the pain is actually worse. Onset at 1900 today. 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 LMP N/A - Hysterectomy ca1 Historical: - Allergies: 22:24 Adhesives; ca1 22:24 Aspirin; ca1 22:24 Bactrim; ca1 22:24 Benadryl; ca1 22:24 cefixime; ca1 22:24 Cipro IV; ca1 22:24 Clindamycin; ca1 22:24 coconut oil; ca1 22:24 Codeine; ca1 22:24 Demerol; ca1 22:24 Detrol; ca1 22:24 Diltiazem; ca1 22:24 Doxycycline; ca1 22:24 FISH PRODUCT DERIVATIVES; ca1 22:24 GABAPENTIN; ca1 22:24 Iodine; ca1 22:24 ivabradine; ca1 22:24 Latex, Natural Rubber; ca1 22:24 Levofloxacin; ca1 22:24 Morphine; ca1 22:24 PENICILLINS; ca1 22:24 QUETIAPINE; ca1 22:24 Seroquel; ca1 22:24 Sulfa (Sulfonamide Antibiotics); ca1 22:24 Suprax; ca1 22:24 tolterodine; ca1 22:24 tramadol; ca1 - Home Meds: 22:24 albuterol sulfate 1.25 mg/3 mL Inhl nebu 3 mL 3 times per day [Active]; albuterol ca1 sulfate 1.25 mg/3 mL Inhl nebu 3 mL 3 times per day [Active]; alprazolam 0.25 mg Oral tab 1 tab nightly [Active]; atorvastatin 10 mg Oral tab 1 tab once daily [Active]; - PMHx: 22:24 CHF; Atrial Fib; ca1 - PSHx: 22:24 pacemaker; ca1 - Immunization history:: Adult Immunizations up to date, Flu vaccine is up to date. - Social history:: Smoking status: Patient/guardian denies using tobacco, the patient reports quitting approximately 13 years ago. ROS: 22:26 Constitutional: Negative for fever, chills, and weight loss. pm1 22:26 Back: Negative for injury and pain, MS/Extremity: Negative for injury and deformity, Skin: Negative for injury, rash, and discoloration, Neuro: Negative for headache, weakness, numbness, tingling, and seizure. 22:26 Cardiovascular: Positive for chest pain, palpitations, Negative for edema. 22:26 Respiratory: Positive for cough, shortness of breath. 22:26 Abdomen/GI: Positive for nausea, Negative for abdominal pain, vomiting, diarrhea, constipation. Exam: 22:26 Constitutional: This is a well developed, well nourished patient who is awake, alert, pm1 and in no acute distress. Head/Face: Normocephalic, atraumatic. 22:26 Back: No spinal tenderness. No costovertebral tenderness. Full range of motion. Skin: Warm, dry with normal turgor. Normal color with no rashes, no lesions, and no evidence of cellulitis. MS/ Extremity: Pulses equal, no cyanosis. Neurovascular intact. Full, normal range of motion. 22:26 Chest/axilla: Inspection: normal, Palpation: crepitus, is not appreciated, tenderness, of the anterior aspect of left upper chest, that partially reproduces the patient's complaints. 22:26 Cardiovascular: Exam negative for acute changes, Rate: normal, Rhythm: regular, Pulses: no pulse deficits are appreciated, Edema: is not appreciated. 22:26 Respiratory: Exam negative for acute changes, the patient does not display signs of respiratory distress, Breath sounds: are clear throughout. 22:26 Abdomen/GI: Inspection: abdomen appears normal, Palpation: abdomen is soft and non-tender, in all quadrants. 22:26 Neuro: Exam negative for acute changes, Orientation: is normal, Mentation: is normal, Motor: is normal, moves all fours. Vital Signs: 22:18 BP 133 / 85; Pulse 105; Resp 19 S; Temp 98.1(TE); Pulse Ox 99% on R/A; Weight 56.25 kg ca1 (R); Height 4 ft. 11 in. (149.86 cm) (R); Pain 9/10; 23:33 BP 121 / 94; Pulse 101; Resp 17 S; Pulse Ox 96% on R/A; jd3 08/19 02:08 BP 128 / 82; Pulse 86 MON; Resp 17 S; Temp 98.2; Pulse Ox 100% on R/A; sg 08/18 22:18 Body Mass Index 25.04 (56.25 kg, 149.86 cm) ca1 MDM: 08/18 22:16 Patient medically screened. pm1 23:38 Data reviewed: vital signs. Data interpreted: Pulse oximetry: on room air is 96 %. pm1 Interpretation: normal. 23:43 Counseling: I had a detailed discussion with the patient and/or guardian regarding: the pm1 historical points, exam findings, and any diagnostic results supporting the discharge/admit diagnosis, lab results, radiology results, the need for further work-up and treatment in the hospital. 08/18 22:20 Order name: Basic Metabolic Panel; Complete Time: 23:37 pm1 08/18 22:20 Order name: CBC with Diff; Complete Time: 23:37 pm1 08/18 22:20 Order name: LFT's; Complete Time: 23:37 pm1 08/18 22:20 Order name: Magnesium; Complete Time: 23:37 pm1 08/18 22:20 Order name: NT PRO-BNP; Complete Time: 23:37 pm1 08/18 22:20 Order name: PT-INR; Complete Time: 23:37 pm1 08/18 22:20 Order name: Troponin (emerg Dept Use Only); Complete Time: 23:37 pm1 08/18 22:20 Order name: XRAY Chest (1 view) pm1 08/19 00:14 Order name: COVID-19 la1 08/19 00:36 Order name: CORONAVIRUS EDMS 08/19 01:50 Order name: SARS-COV-2 RT PCR EDWA 08/18 22:20 Order name: EKG; Complete Time: 22:21 pm1 08/18 22:20 Order name: Cardiac monitoring; Complete Time: 22:42 pm1 08/18 22:20 Order name: EKG - Nurse/Tech; Complete Time: 22:42 pm1 08/18 22:20 Order name: IV Saline Lock; Complete Time: 23:26 pm1 08/18 22:20 Order name: Labs collected and sent; Complete Time: 23:26 pm1 08/18 22:20 Order name: O2 Per Protocol; Complete Time: 22:42 pm1 08/18 22:20 Order name: O2 Sat Monitoring; Complete Time: 22:42 pm1 EC:39 Rate is 93 beats/min. Rhythm is regular, Normal Sinus Rhythm with Right bundle branch pm1 block. No Q waves. T waves are Normal. No ST changes noted. Clinical impression: No change from prior ECG. No change from previous ECG on July 03, 2020. Administered Medications: 23:24 Drug: Dilaudid 0.5 mg {Note: RASS 0.} Route: IVP; Site: right forearm; zb 23:52 Follow up: Response: No adverse reaction; Pain is decreased zb 23:25 Drug: Zofran (Ondansetron) 4 mg Route: IVP; Site: right antecubital; zb 23:53 Follow up: Response: No adverse reaction; Nausea unchanged zb 23:52 Drug: Phenergan 12.5 mg Route: IVP; Site: right femoral; zb Disposition: 08/19 10:54 Co-signature as Attending Physician, Caio Aceves MD I agree with the assessment and taty plan of care. Disposition: 08/18/20 23:45 Hospitalization ordered by Jamie Robbins for Observation. Preliminary diagnosis is Chest pain, unspecified. - Bed requested for Telemetry/MedSurg (observation). - Status is Observation. sg - Condition is Stable. - Problem is new. - Symptoms have improved. Signatures: Dispatcher [employer] EDWA Dandre Peres RN RN sg Anderson, Corey, MD MD cha Garcia, Cindy, RN RN cg Marinas, Patrick, SPRINKLING SYSTEM IRRIGATOR SPRINKLING SYSTEM IRRIGATOR pm1 Mariann Woods RN RN ca1 Brown, Zipporah, RN RN zb Corrections: (The following items were deleted from the chart) 00:12 08/18 23:45 Hospitalization Ordered by Jamie Robbins MD for Observation. Preliminary cg diagnosis is Chest pain, unspecified. Bed requested for Telemetry/MedSurg (observation). Status is Observation. Condition is Stable. Problem is new. Symptoms have improved. pm1 08/19 02:10 00:12 08/18/2020 23:45 Hospitalization Ordered by Jamie Robbins MD for Observation. sg Preliminary diagnosis is Chest pain, unspecified. Bed requested for Telemetry/MedSurg (observation). Status is Observation. Condition is Stable. Problem is new. Symptoms have improved. cg
--- NOTE | 2020-08-18 23:45 | ER ---
Nurse's Notes [facility] Name: Jenni Draper Age: 40 yrs Sex: Female : 1980 Arrival Date: 08/18/2020 Time: 21:58 Bed 16 Private MD: Diya Mora Atiq Diagnosis: Chest pain, unspecified Presentation: 08/18 22:18 Chief complaint: Patient states: Headache, dizziness and lightheadedness at 1900 today, ca1 feels like I was going to pass out. At 1999, chest pains with SOB. CP radiating to the L arm. Hx of AFib with a pacemaker. Coronavirus screen: Client denies travel out of the [place] in the last 14 days. At this time, the client does not indicate any symptoms associated with coronavirus-19. Ebola Screen: Patient negative for fever greater than or equal to 101.5 degrees Fahrenheit, and additional compatible Ebola Virus Disease symptoms Patient denies exposure to infectious person. Patient denies travel to an Ebola-affected area in the 21 days before illness onset. No symptoms or risks identified at this time. Initial Sepsis Screen: Does the patient meet any 2 criteria? Yes Does the patient have a suspected source of infection? No. Patient's initial sepsis screen is negative. Risk Assessment: Do you want to hurt yourself or someone else? Patient reports no desire to harm self or others. Onset of symptoms was August 18, 2020 at 19:00. 22:18 Method Of Arrival: Wheelchair ca1 22:18 Acuity: LYUBOV 2 ca1 SKEIN DRIER: 22:25 LMP N/A - Hysterectomy ca1 Historical: - Allergies: 22:24 Adhesives; ca1 22:24 Aspirin; ca1 22:24 Bactrim; ca1 22:24 Benadryl; ca1 22:24 cefixime; ca1 22:24 Cipro IV; ca1 22:24 Clindamycin; ca1 22:24 coconut oil; ca1 22:24 Codeine; ca1 22:24 Demerol; ca1 22:24 Detrol; ca1 22:24 Diltiazem; ca1 22:24 Doxycycline; ca1 22:24 FISH PRODUCT DERIVATIVES; ca1 22:24 GABAPENTIN; ca1 22:24 Iodine; ca1 22:24 ivabradine; ca1 22:24 Latex, Natural Rubber; ca1 22:24 Levofloxacin; ca1 22:24 Morphine; ca1 22:24 PENICILLINS; ca1 22:24 QUETIAPINE; ca1 22:24 Seroquel; ca1 22:24 Sulfa (Sulfonamide Antibiotics); ca1 22:24 Suprax; ca1 22:24 tolterodine; ca1 22:24 tramadol; ca1 - Home Meds: 22:24 albuterol sulfate 1.25 mg/3 mL Inhl nebu 3 mL 3 times per day [Active]; albuterol ca1 sulfate 1.25 mg/3 mL Inhl nebu 3 mL 3 times per day [Active]; alprazolam 0.25 mg Oral tab 1 tab nightly [Active]; atorvastatin 10 mg Oral tab 1 tab once daily [Active]; - PMHx: 22:24 CHF; Atrial Fib; ca1 - PSHx: 22:24 pacemaker; ca1 - Immunization history:: Adult Immunizations up to date, Flu vaccine is up to date. - Social history:: Smoking status: Patient/guardian denies using tobacco, the patient reports quitting approximately 13 years ago. Screenin:50 Abuse screen: Denies threats or abuse. Denies injuries from another. Nutritional zb screening: No deficits noted. Tuberculosis screening: No symptoms or risk factors identified. Fall Risk Fall in past 12 months (25 points). No secondary diagnosis (0 pts). IV access (20 points). Ambulatory Aid- None/Bed Rest/Nurse Assist (0 pts). Gait- Normal/Bed Rest/Wheelchair (0 pts) Mental Status- Oriented to own ability (0 pts). Total Jolly Fall Scale indicates High Risk Score (45 or more points). Fall prevention measures have been instituted. Side Rails Up X 2 Placed Close to Nursing Station Frequent Obs/Assessments Occuring Family Present and informed to notify staff if the need to leave the bedside As available patient and family educated on Fall Prevention Program and Strategies. Assessment: 22:50 General: Appears in no apparent distress. uncomfortable, slender, well groomed, zb Behavior is calm, cooperative, appropriate for age, Reports feeling ill for 0-12 hours, fatigue for 0-12 hours. Pain: Complains of pain in chest Pain radiates to left arm Pain began couple of hours ago. Neuro: Level of Consciousness is awake, alert, obeys commands, Oriented to person, place, time, situation. Cardiovascular: Reports chest pain, fatigue, lightheadedness, nausea, shortness of breath, Murmur present Capillary refill < 3 seconds in bilateral fingers Pulses are all present. Respiratory: Airway is patent Respiratory effort is even, unlabored, Respiratory pattern is regular, Breath sounds are clear bilaterally. GI: No signs and/or symptoms were reported involving the gastrointestinal system. Abdomen is flat, round non-distended, Bowel sounds present X 4 quads. Abd is soft and non tender X 4 quads. Patient currently denies diarrhea. : No signs and/or symptoms were reported regarding the genitourinary system. EENT: No signs and/or symptoms were reported regarding the EENT system. Derm: Skin is intact, is healthy with good turgor, Skin is normal. Musculoskeletal: Circulation, motion, and sensation intact. 23:33 Reassessment: Patient appears in no apparent distress at this time. No changes from jd3 previously documented assessment. Patient and/or family updated on plan of care and expected duration. Pain level reassessed. Patient is alert, oriented x 3, equal unlabored respirations, skin warm/dry/pink. 08/19 01:54 Reassessment: Patient appears in no apparent distress at this time. attempt to give sg report to receiving nurse for 206, receiving nurse to call back for pt report. Vital Signs: 08/18 22:18 BP 133 / 85; Pulse 105; Resp 19 S; Temp 98.1(TE); Pulse Ox 99% on R/A; Weight 56.25 kg ca1 (R); Height 4 ft. 11 in. (149.86 cm) (R); Pain 9/10; 23:33 BP 121 / 94; Pulse 101; Resp 17 S; Pulse Ox 96% on R/A; jd3 08/19 02:08 BP 128 / 82; Pulse 86 MON; Resp 17 S; Temp 98.2; Pulse Ox 100% on R/A; sg 08/18 22:18 Body Mass Index 25.04 (56.25 kg, 149.86 cm) ca1 ED Course: 08/18 21:58 Patient arrived in ED. am2 21:58 Diya Mora MD is Private Physician. am2 22:14 Zurdo Prasad NP is PHCP. pm1 22:14 Caio Aceves MD is Attending Physician. pm1 22:21 Triage completed. ca1 22:24 Arm band placed on right wrist. ca1 22:27 Vika Cain, LAUREL is Primary Nurse. zb 22:42 EKG done, by ED staff, reviewed by Zurdo Prasad CONTACT CENTER DIRECTOR. jp3 22:43 Placed in gown. Bed in low position. Call light in reach. Verbal reassurance given. jp3 monitor technician on. Pulse ox on. NIBP on. 23:06 XRAY Chest (1 view) In Process Unspecified. EDMS 23:08 Inserted saline lock: 22 gauge in right forearm, using aseptic technique. Blood jd3 collected. 23:09 Patient maintains SpO2 saturation greater than 95% on room air. jd3 23:44 Jamie Robbins MD is Hospitalizing Provider. pm1 08/19 00:30 COVID swab sent to lab. sg Administered Medications: 08/18 23:24 Drug: Dilaudid 0.5 mg {Note: RASS 0.} Route: IVP; Site: right forearm; zb 23:52 Follow up: Response: No adverse reaction; Pain is decreased zb 23:25 Drug: Zofran (Ondansetron) 4 mg Route: IVP; Site: right antecubital; zb 23:53 Follow up: Response: No adverse reaction; Nausea unchanged zb 23:52 Drug: Phenergan 12.5 mg Route: IVP; Site: right femoral; zb Outcome: 23:45 Decision to Hospitalize by Provider. pm1 08/19 02:10 Patient left the ED. sg Signatures: Dispatcher [employer] EDNJ Dandre Peres RN RN sg Zurdo Prasad NP CONTACT CENTER DIRECTOR pm1 Vinita Garrison am2 Fritz Cho RN RN Fausto Cherry jp3 Mariann Woods RN RN ca1 Vika Cain, RN RN zb Corrections: (The following items were deleted from the chart) 08/18 23: 23:24 Dilaudid 0.5 mg IVP in right forearm zb zb
[2020-08-19] MEDS ORDERED: PROMETHAZINE INJ 25 MG/ML AMP ONE
--- NOTE | 2020-08-19 00:12 | P.HP ---
Certification for Inpatient Patient admitted to: Observation With expected LOS: <2 Midnights Patient will require the following post-hospital care: None Practitioner: I am a practitioner with admitting privileges, knowledge of patient current condition, hospital course, and medical plan of care. Services: Services provided to patient in accordance with Admission requirements found in Title 42 Section 412.3 of the Code of Federal Regulations <Alexandre Mooney - Last Filed: 08/19/20 00:08> Patient History Date of Service: 08/19/20 Primary Care Provider: Dr. Mora Reason for admission: Chest pain History of Present Illness: 40-year-old female with history of sick sinus syndrome with pacemaker placement, atrial fibrillation on chronic anticoagulation therapy, anxiety with depression, COPD, seizure disorder, GERD presents emergency department for chest pain. Patient reports the chest pain began at approximately 7:00 p.m. last night, pain was pressure like radiating down the left arm with associated shortness of breath. Patient denies previous episodes similar to this. Last stress test was approximately 5 years ago. Patient reportedly had attempted cardiac catheterization earlier this year with her information systems technician but was too hypertensive at the time to continue with heart catheterization. Patient's workup in the emergency department was relatively unremarkable, troponin negative, EKG without any acute findings. Patient is pain free at this time. ED provider wishes to admit patient for further evaluation and management. - Past Medical/Surgical History Diabetic: No -: Sick sinus syndrome with pacemaker placement -: Atrial fibrillation on chronic anticoagulation therapy -: COPD -: Seizure disorder -: Anxiety/depression/bipolar -: GERD -: left shoulder -: right hand -: hysterectomy Psychosocial/ Personal History: Patient is unemployed on disability and lives with her - Family History Family History: Reviewed- Non-Contributory - Social History Smoking Status: Former smoker Alcohol use: No CD- Drugs: No Caffeine use: Yes Place of Residence: Home <Alexandre Mooney - Last Filed: 08/19/20 00:08> Date of Service: 08/20/20 <Jamie Robbins - Last Filed: 08/20/20 17:27> Allergies adhesive Allergy (Severe, Verified 08/19/20 03:23) Unknown aspirin Allergy (Severe, Verified 06/23/15 12:41) Anaphylaxis ciprofloxacin [From Cipro] Allergy (Severe, Verified 06/30/15 16:01) Hives/Rash codeine Allergy (Severe, Verified 06/30/15 16:01) Itching/Hives/Rash gabapentin Allergy (Severe, Verified 08/19/20 03:23) Unknown iodine Allergy (Severe, Verified 08/19/20 03:23) Unknown Latex, Natural Rubber Allergy (Severe, Verified 08/19/20 03:23) Unknown Penicillins Allergy (Severe, Verified 06/23/15 12:41) Anaphylaxis quetiapine [From Seroquel] Allergy (Severe, Verified 08/19/20 03:23) Hives/Rash quetiapine fumarate [From Seroquel] Allergy (Severe, Verified 08/19/20 03:23) Hives/Rash Sulfa (Sulfonamide Antibiotics) Allergy (Severe, Verified 06/23/15 12:41) Anaphylaxis sulfamethoxazole [From Bactrim] Allergy (Severe, Verified 08/19/20 03:23) Hives/Rash tolterodine [From Detrol] Allergy (Severe, Verified 08/19/20 03:23) Hives/Rash tolterodine tartrate [From Detrol] Allergy (Severe, Verified 06/23/15 12:41) Anaphylaxis tramadol Allergy (Severe, Verified 06/30/15 16:01) Anaphylaxis trimethoprim [From Bactrim] Allergy (Severe, Verified 08/19/20 03:23) Hives latex Allergy (Intermediate, Verified 06/23/15 12:41) Rash coconut Allergy (Verified 08/19/20 03:23) Rash meperidine [From Demerol] Allergy (Verified 08/19/20 03:23) Unknown morphine Allergy (Verified 08/19/20 03:23) Anaphylaxis bee venom protein (honey bee) Adverse Reaction (Severe, Verified 08/19/20 03:23) Anaphylaxis Fish Containing Products Adverse Reaction (Verified 08/19/20 03:23) Anaphylaxis Clindamycin Allergy (Severe, Uncoded 08/19/20 03:23) Hives/Rash Home Medications: Albuterol Sulfate [Proair Hfa] 8.5 gm IH PRN PRN 06/23/15 Tiotropium [Spiriva Handihaler*] 18 mcg IH DAILY 06/23/15 ALPRAZolam [Xanax*] 0.25 mg PO TIDP PRN 08/19/20 ARIPiprazole [Abilify*] 5 mg PO DAILY 08/19/20 ARIPiprazole [Abilify*] 10 mg PO BEDTIME 08/19/20 Albuterol Neb [Proventil 0.083% Neb Soln] 1 dose IH BID 08/19/20 Apixaban [Eliquis] 5 mg PO BID 08/19/20 Benzonatate [Tessalon Perle*] 100 mg PO TID 08/19/20 Buspirone HCl [Buspar] 15 mg PO BID 08/19/20 Carbamazepine [Tegretol Xr] 200 mg PO BEDTIME 08/19/20 Cholecalciferol (Vitamin D3) [Vitamin D 1000 Iu Tab*] 2 tab PO EVERY 7TH DAY 08/19/20 Cyanocobalamin (Vitamin B-12) [Vitamin B-12] 1 cap PO DAILY 08/19/20 Digoxin 125 mcg PO DAILY 08/19/20 Esomeprazole Mag Trihydrate [Nexium] 20 mg PO BID 08/19/20 Fluticasone/Vilanterol [Breo Ellipta 200-25 Mcg INH] 1 dose IH DAILY 08/19/20 Loratadine [Claritin*] 10 mg PO DAILY PRN 08/19/20 Pregabalin [Lyrica*] 50 mg PO BEDTIME 08/19/20 Venlafaxine HCl [Effexor Xr] 75 mg PO DAILY 08/19/20 Venlafaxine HCl [Effexor Xr] 150 mg PO BEDTIME 08/19/20 carvediloL [Coreg*] 25 mg PO BID 08/19/20 levETIRAcetam [Keppra*] 1,000 mg PO BID 08/19/20 predniSONE [Deltasone*] 10 mg PO DAILYPRN PRN 08/19/20 Review of Systems 10-point ROS is otherwise unremarkable Respiratory: As per HPI Cardiovascular: As per HPI <Alexandre Mooney - Last Filed: 08/19/20 00:08> Physical Examination - Physical Exam General: Alert, In no apparent distress HEENT: Atraumatic, PERRLA, Mucous membr. moist/pink Neck: Supple, 2+ carotid pulse no bruit, No LAD Respiratory: Clear to auscultation bilaterally, Normal air movement Cardiovascular: Regular rate/rhythm, Normal S1 S2 Gastrointestinal: Normal bowel sounds, No tenderness Musculoskeletal: No tenderness Integumentary: No rashes Neurological: Normal speech, Normal strength at 5/5 x4 extr, Normal tone, Normal affect - Studies Laboratory Data (last 24 hrs) 08/18/20 23:01: PT 10.7, INR 0.91 08/18/20 23:01: WBC 6.7, Hgb 12.9, Hct 38.1, Plt Count 243 08/18/20 23:01: Sodium 142, Potassium 3.6, BUN 11, Creatinine 0.67, Glucose 123 H, Magnesium 2.2, Total Bilirubin 0.1 L, AST 18, ALT 27, Alkaline Phosphatase 123 H <Alexandre Mooney - Last Filed: 08/19/20 00:08> Assessment and Plan - Plan Assessment Chest pain rule out ACS Atrial fibrillation on chronic anticoagulation therapy Sick sinus syndrome with pacemaker placement Reported borderline diabetic Seizure disorder GERD Hypertension Plan Chest pain rule out ACS: Monitor on telemetry, trend troponins, daily aspirin, beta-partha. Cardiology consult in place. Continue Eliquis for DVT prophylaxis Atrial fibrillation on chronic anticoagulation therapy: Continue Eliquis, digoxin. Monitor on telemetry. Sick sinus syndrome with pacemaker placement: Pacemaker in place, monitor on telemetry. Continue beta partha. Reported borderline diabetic: A1c with morning labs, a.c. HS Accu-Cheks, sliding scale insulin therapy. Blood sugar slightly elevated in the ER. Seizure disorder: Continue Keppra GERD: Continue Pepcid Hypertension: Continue home medications. Discharge Plan: Home Plan to discharge in: 24 Hours - Advance Directives Does patient have a Living Will: No Does patient have a Durable POA for Healthcare: No - Code Status/Comfort Care Code Status Assessed: Yes (Full code) Critical Care: No Time Spent Managing Pts Care (In Minutes): 55 <Alexandre Mooney - Last Filed: 08/19/20 00:08> - Plan Plan of care discussed with Alexandre Mooney, and I agree with the management plan as noted above. <Jamie Robbins - Last Filed: 08/20/20 17:27>
[2020-08-19] MEDS ORDERED: HYDROMORPHONE HCL 0.5 MG/0.5 ML INJ IV PRN (02:07)
[2020-08-19] MEDS ORDERED: ONDANSETRON 4 MG/2 ML VIAL IV PRN (02:07)
[2020-08-19] MEDS ORDERED: ALPRAZOLAM 0.25 MG TABLET PO PRN (02:07)
[2020-08-19 02:53] VITALS: BMI 25.0
[2020-08-19 03:11] VITALS: O2SAT 100
[2020-08-19 05:07] LABS: Absolute Lymphocytes (CBC) 2.2 K/uL (0.7-4.9); Basophils % 0.5 % (0-1.3); Hematocrit 37.2 % (36.0-45.0); Lymphocytes % 35.8 % (15.3-44.8); MPV 8.4 fL (7.6-11.3); RBC Red Blood Cell Count 4.31 M/uL (3.86-4.86)
[2020-08-19 05:23] LABS: BUN Blood Urea Nitrogen 11 mg/dL (7-18); Bicarbonate 29 mmol/L (21-32); Glucose Level 103 mg/dL (74-106); HDL Cholesterol 49 mg/dL (40-60); LDL Cholesterol, Calculated 147 (<130); Magnesium 2.5 mg/dL (1.8-2.4); Potassium 3.9 mmol/L (3.5-5.1); Sodium Level 141 mmol/L (136-145)
[2020-08-19] MEDS ORDERED: carvediloL 25 MG TAB PO SCH (06:00)
[2020-08-19] MEDS: INSULIN -REGULAR HUMAN 50 UNIT/0.5 ML ML SQ SCH ×2 (07:30→11:30)
--- NOTE | 2020-08-19 07:40 | RAD REPORT ---
EXAM DESCRIPTION: [facility] Single View08/18/2020 11:06 pm CLINICAL HISTORY: Chest pain COMPARISON: June 2020 FINDINGS: The lungs appear clear of acute infiltrate. The heart is normal size. Pacemaker leads in place IMPRESSION: No acute abnormalities displayed
--- NOTE | 2020-08-19 08:53 | CON ---
Date of Consultation: 08/19/2020 Reason For Consultation: Chest pain. History Of Present Illness: The patient is a 40-year-old woman, who has had a history of congestive heart failure, atrial fibrillation. She is status post pacemaker. She sees Dr. Hines at [facility], just saw him recently. Comes in with sharp, stabbing chest pain that would last seconds, not exertional, not radiating. No nausea, vomiting, diaphoresis, PND, orthopnea, pedal edema, palpitations, or sync ope. She has already ruled out for an RI. EKG is normal. The troponin is negative. She also compl ains of some headache and dizziness. Past Medical History: As stated above. Allergies: MULTIPLE INCLUDING DILTIAZEM, IODINE, ASPIRIN, BACTRIM, CIPRO, AND ADHESIVE WELL BE NADRYL. Medications: At home include albuterol, Xanax, Lipitor, Coreg, digoxin, Eliquis, Keppra, Lyrica, ins ulin. Physical Examination: General: She was rather somnolent and difficult to arouse. We did talk a little bit but she kept fa lling back asleep. Vital Signs: Stable. Afebrile. Chest: Clear. Cardiac: Normal. Abdomen: Benign. Extremities: Reveal no clubbing, cyanosis, or edema. Diagnostic Data: As stated earlier. Impression And Plan: 1.Atypical chest pain, sharp, stabbing, noncardiac. Has had a negative cardiac workup in the past f rom a coronary standpoint and . Following up with Dr. Hines. I think her pain is more sy stolically. 2.Atrial fibrillation, status post pacemaker. She is in sinus rhythm, paced rhythm. Adequate on Co reg and we will continue that. 3.Chronic diastolic congestive heart failure. 4.Hypertension, well controlled. 5.Diabetes. 6.Neuropathy. 7.Anxiety. May have an echocardiogram pending. She can certainly follow up with Dr. Hines for pacemaker check and maybe an outpatient stress test. I would not change her medical therapy. She can go home today if it is okay with Dr. Robbins. MILADYS/MODL Voice ID: [id number] Report ID: [id number]
[2020-08-19] MEDS ORDERED: FAMOTIDINE 20 MG TAB PO SCH (09:00)
[2020-08-19] MEDS ORDERED: TIOTROPIUM 5 SPRAYS/INHALER IH SCH (09:00)
[2020-08-19] MEDS ORDERED: DIGOXIN 0.125 MG TABLET PO SCH (09:00)
[2020-08-19] MEDS ORDERED: carBAMazepine 200 MG TAB PO SCH (09:00)
[2020-08-19] MEDS ORDERED: ASPIRIN EC 81 MG TAB PO SCH (09:00)
[2020-08-19] MEDS ORDERED: APIXABAN 5 MG TABLET PO SCH (09:00)
[2020-08-19] MEDS ORDERED: POTASSIUM CL SA 10 MEQ TAB PO ONE (09:00)
[2020-08-19] MEDS ORDERED: ROFLUMILAST 500 MCG TABLET PO SCH (09:00)
[2020-08-19] MEDS ORDERED: levETIRAcetam 500 MG TAB PO SCH (09:00)
[2020-08-19 09:29] VITALS: BP 120/71; TEMP 97.5
[2020-08-19] MEDS ORDERED: LORATADINE 10 MG TAB PO PRN (09:33)
[2020-08-19] MEDS ORDERED: VENLAFAXINE HCL XR 75 MG CAP PO SCH ×2 (10:00→21:00)
[2020-08-19] MEDS ORDERED: ARIPiprazole 5 MG TAB PO SCH ×2 (10:00→21:00)
--- NOTE | 2020-08-19 20:14 | P.DS ---
Admission Date: 08/18/20 Discharge Date: 08/19/20 Primary Care Provider: Dr. Mora Disposition: ROUTINE DISCHARGE Discharge Condition: GOOD Reason for Admission: Chest pain Consultations: Cardiology - Dr. Rajan Procedures: Problem List Chest pain Atrial fibrillation on chronic anticoagulation therapy Sick sinus syndrome with pacemaker placement Reported borderline diabetic Seizure disorder GERD Hypertension Brief History of Present Illness: 40yo female, PMH: Sick sinus syndrome with pacemaker, afib on anticoagulation, anxiety/depression, biplar, COPD, seizure disorder who presented to ED for chest pain that began the night prior. Reported similar episodes preivously to this and reports negative stress test in the past. She was admitted for further evaluation. Hospital Course: She was monitored on telemetry and her troponins were trended. Cardiology was consulted who recommended against any procedures at this time. She was effectively ruled out of ACS, was feeling better, and was discharged home. She has an appointment with her lasting room machine operator next week. No changes were made to her medications on discharge. Vital Signs/Physical Exam: Temp Pulse Resp BP Pulse Ox 97.5 F 91 H 16 120/71 93 08/19/20 08:00 08/19/20 08:00 08/19/20 08:00 08/19/20 08:00 08/19/20 08:00 General: Alert, In no apparent distress, Oriented x3 HEENT: Sclerae nonicteric Respiratory: Clear to auscultation bilaterally Cardiovascular: No edema, Regular rate/rhythm Gastrointestinal: Soft and benign, Non-distended, No tenderness Musculoskeletal: No tenderness Integumentary: No rashes Neurological: Normal speech, Normal affect Laboratory Data at Discharge: WBC 6.2 K/uL (4.3-10.9) 08/19/20 04:19 Hgb 12.5 g/dL (12.0-15.0) 08/19/20 04:19 Hct 37.2 % (36.0-45.0) 08/19/20 04:19 Plt Count 243 K/uL (152-406) 08/19/20 04:19 PT 10.7 SECONDS (9.5-12.5) 08/18/20 23:01 INR 0.91 08/18/20 23:01 Sodium 141 mmol/L (136-145) 08/19/20 04:19 Potassium 3.9 mmol/L (3.5-5.1) 08/19/20 04:19 BUN 11 mg/dL (7-18) 08/19/20 04:19 Creatinine 0.65 mg/dL (0.55-1.3) 08/19/20 04:19 Glucose 103 mg/dL (74-106) 08/19/20 04:19 Magnesium 2.5 mg/dL (1.8-2.4) H 08/19/20 04:19 Total Bilirubin 0.1 mg/dL (0.2-1.0) L 08/18/20 23:01 AST 18 U/L (15-37) 08/18/20 23:01 ALT 27 U/L (12-78) 08/18/20 23:01 Alkaline Phosphatase 123 U/L (45-117) H 08/18/20 23:01 Troponin I < 0.02 ng/mL (0.0-0.045) 08/19/20 09:53 Triglycerides 103 mg/dL (<150) 08/19/20 04:19 Cholesterol 217 mg/dL (<200) H 08/19/20 04:19 HDL Cholesterol 49 mg/dL (40-60) 08/19/20 04:19 Cholesterol/HDL Ratio 4.43 08/19/20 04:19 Home Medications: Albuterol Sulfate [Proair Hfa] 8.5 gm IH PRN PRN 06/23/15 Tiotropium [Spiriva Handihaler*] 18 mcg IH DAILY 06/23/15 ALPRAZolam [Xanax*] 0.25 mg PO TIDP PRN 08/19/20 ARIPiprazole [Abilify*] 5 mg PO DAILY 08/19/20 ARIPiprazole [Abilify*] 10 mg PO BEDTIME 08/19/20 Albuterol Neb [Proventil 0.083% Neb Soln] 1 dose IH BID 08/19/20 Apixaban [Eliquis] 5 mg PO BID 08/19/20 Benzonatate [Tessalon Perle*] 100 mg PO TID 08/19/20 Buspirone HCl [Buspar] 15 mg PO BID 08/19/20 Carbamazepine [Tegretol Xr] 200 mg PO BEDTIME 08/19/20 Cholecalciferol (Vitamin D3) [Vitamin D 1000 Iu Tab*] 2 tab PO EVERY 7TH DAY 08/19/20 Cyanocobalamin (Vitamin B-12) [Vitamin B-12] 1 cap PO DAILY 08/19/20 Digoxin 125 mcg PO DAILY 08/19/20 Esomeprazole Mag Trihydrate [Nexium] 20 mg PO BID 08/19/20 Fluticasone/Vilanterol [Breo Ellipta 200-25 Mcg INH] 1 dose IH DAILY 08/19/20 Loratadine [Claritin*] 10 mg PO DAILY PRN 08/19/20 Pregabalin [Lyrica*] 50 mg PO BEDTIME 08/19/20 Venlafaxine HCl [Effexor Xr] 75 mg PO DAILY 08/19/20 Venlafaxine HCl [Effexor Xr] 150 mg PO BEDTIME 08/19/20 carvediloL [Coreg*] 25 mg PO BID 08/19/20 levETIRAcetam [Keppra*] 1,000 mg PO BID 08/19/20 predniSONE [Deltasone*] 10 mg PO DAILYPRN PRN 08/19/20 Patient Discharge Instructions: follow up with PCP within 1 week. follow up with cardiology as scheduled on 08/24. continue home medications Diet: AHA Activity: Ad haley Followup: Diya Mora MD [Primary Care Provider] - Time spent managing pt's care (in minutes): 35
[2020-08-19] MEDS ORDERED: ESOMEPRAZOLE MAG TRIHYDRATE 20 MG PO SCH (21:00)
[2020-08-19] MEDS ORDERED: BUSPIRONE HCL 15 MG TABLET PO SCH (21:00)
[2020-08-19] MEDS ORDERED: PANTOPRAZOLE 40MG TABLET PO SCH (21:00)
[2020-08-19] MEDS ORDERED: PREGABALIN 50 MG CAP PO SCH (21:00)
[2020-08-20] MEDS ORDERED: FLUTICASONE IH SCH (09:00)
[2020-08-20] MEDS ORDERED: VILANTEROL IH SCH (09:00)
[2020-08-20] MEDS ORDERED: TIOTROPIUM 5 SPRAYS/INHALER IH SCH (09:00)
== END 2020-08-19 12:43 | disposition home or self-care (01) ==
LOC: ER 21:57 → ERHOLD 23:58 → 2ND 08-19 01:53
PROVIDERS: ADMIT Hospitalist; ATTEND Hospitalist
DX: R07.89 Other chest pain (principal); I48.91 Unspecified atrial fibrillation; Z79.01 Long term (current) use of anticoagulants; Z95.0 Presence of cardiac pacemaker; G40.909 Epilepsy, unspecified, not intractable, without status epilepticus; K21.9 Gastro-esophageal reflux disease without esophagitis; Z20.828 Contact with and (suspected) exposure to other viral communicable diseases; F31.9 Bipolar disorder, unspecified; F41.9 Anxiety disorder, unspecified; J44.9 Chronic obstructive pulmonary disease, unspecified; I11.0 Hypertensive heart disease with heart failure; I50.32 Chronic diastolic (congestive) heart failure; E11.40 Type 2 diabetes mellitus with diabetic neuropathy, unspecified; Z79.4 Long term (current) use of insulin; Z87.891 Personal history of nicotine dependence
CPT/HCPCS: 93005; 85025 ×2; 80048 ×2; 36415; 83735 ×2; 85610; 80061; 80076; 84443; 83036; 84484 ×3; 84439; 83880; 71045; 99285; U0003; J2550; J1170 ×2; J2405 ×2; G0378 ×2

== ENCOUNTER 2020-10-08 11:04 | Emergency (ER) | payer MEDICAID ==
--- OUTSIDE RECORDS SUMMARY | 2020-10-08 11:07 | XMS REPORT | Clinical Summary ---
:1980 [address] [facility] Address [address] [place] [address] Care Team Providers Name Role Phone Yoni [...] VACCINE (#1) 2020 Results Not on fileafter 10/08/2019 Insurance Payer Benefit Plan / Subscriber ID Effective Dates Phone Addre ss Type Group [employer] MED[place]ID [place] [id number] 2018-Present Advance Directives For more information, please contact: [phone] Code Status Date Activated Date Inactivated Comments Full Code 08/17/2018 7:42 PM This code status was determined by: Patient
--- OUTSIDE RECORDS SUMMARY | 2020-10-08 11:07 | XMS REPORT | Clinical Summary ---
:1980 Author Organization [facility] Address [address] [place] [address] Care Team Providers Name Role Phone Unavailable [...] Health Maintenance Due Date Last Done Comments COVID-19 VACCINE (1 of 2) 1997 CERVICAL CANCER SCREENING 2002 INFLUENZA VACCINE 04/25/2020 Results Not on fileafter 10/08/2019 Advance Directives For more information, please contact: [phone] Type Date Recorded Patient Front Desk Admin Explanati on Advance Directives, Living Will and Medical Power of Fixture Relamper
--- OUTSIDE RECORDS SUMMARY | 2020-10-08 11:09 | XMS REPORT | Continuity of Care Document ---
:1980 Author Organization [facility] t Address [address] [place] [address] Care Team Providers Name Role Phone MILTON Primary Care Physician Unavailable Donny LARSEN, K.H. Attending Clinician LEONOR Attending Clinician Unavailable BADAR Attending Clinician Unavailable LEONOR Admitting Clinician Unavailable BADAR Admitting Clinician Unavailable Payers Payer Name Policy Type Policy Number Effective Date Expiration Date S ource Problems Condition Condition Condition Status Onset Resolution Last Treating Co mments Source Name Details Category Date Date Treatment Clinician Date Paresthesi Paresthesi Disease Active 2018- C [facility] of left a of left 10-17 [facility] - arm and arm and 00:00: Medical leg leg 00 Center Allergies, Adverse Reactions, Alerts Allergy Allergy Status Severity Reaction(s) Onset Inactive Treating Comm ents Source Name Type Date Date Clinician Penicill DA Active SV 2020-0 [facility] [place] [facility] Sulfa DA Active MO 2020-0 [facility] (Sulfona 09-28 [place] mide 00:00: d Antibiot 00 Medical ics) Center Fish FA Active SV 2020-0 [facility] Containi -04 [place] ng 00:00: d Products 00 Medical Center iodine DA Active MO 1-0 [facility] -04 [place] 00:[facility]: d 00 [facility] morphine DA Active SV 2020-0 [facility] -04 [place] 00:[facility]: d 00 [facility] aspirin DA Active SV 2020-0 [facility] -04 [place] 00:00: d 00 [facility] cephalex DA Active SV 2020-0 [facility] in - [place] 00:00: d 00 [facility] cefixime DA Active MO 2020-0 [facility] -04 [place] 00:00: d 00 [facility] doxycycl DA Active SV 2020-0 [facility] ine -04 [place] 00:00: d 00 [facility] clindamy DA Active MO 2020-0 [facility] stephan -04 [place] 00:00: d 00 [facility] sulfamet DA Active MO 2020-0 [facility] hoxazole -04 [place] 00:00: d 00 [facility] trimetho DA Active MO 2020-0 [facility] prim -04 [place] 00:00: d 00 [facility] ciproflo DA Active SV 2020-0 [facility] xacin 1-04 [place] 00:00: d 00 [facility] adhesive DA Active SV 2020-0 [facility] tape 1-04 [place] 00:00: d 00 [facility] tramadol DA Active SV 2020-0 [facility] 1-04 [place] 00:00: d 00 [facility] gabapent DA Active SV 2020-0 [facility] in -04 [place] 00:00: d 00 [facility] diltiaze DA Active SV 1-0 [facility] m 1-04 [place] 00:00: d 00 [facility] diphenhy DA Active SV 2021-0 [facility] dramine -04 [place] 00:00: d 00 [facility] Center topirama DA Active SV 1-0 [facility] te 1-04 [place] 00:00: d 00 [facility] Center levoflox DA Active SV [facility] acin 1-04 [place] 00:00: d 00 [facility] quetiapi DA Active MO [facility] ne 1-04 [place] 00:00: d [facility] tolterod DA Active MO [facility] ine 1-04 [place] 00:00: d 00 [facility] latex DA Active SV [facility] 1-04 [place] 00:00: d 00 [facility] Center ivabradi DA Active MO [facility] ne 1-04 [place] 00:00: d 00 [facility] coconut FA Active MO [facility] 1-04 [place] 00:00: d 00 [facility] Adhesive Propensi Active Rash 2017-09 Can use [...] Stop Date Quantity Comments Source History SDOH [place] [facility] Alcohol Std Drinks History [facility] Meth odist Alcohol Binge Sex Assigned At [facility] Tobacco use and 2018-09-04 2018-09-04 Never used [facility] exposure 00:00:00 00:00:00 History SDOH 2018-09-04 2018-09-04 1 [place] [facility] Alcohol Frequency 00:00:00 00:00:00 Alcohol intake 2018-08-18 2018-08-18 Current drinker [facility] 00:00:00 00:00:00 of [facility] (finding) Smoking Status Start Date Stop Date Source Former smoker 2018-09-04 00:00:00 2018-09-04 00:00:00 Beny Ortiz Medications Ordered Filled Start Stop Current Ordering [...] Yes 5mg QD Take 5 mg H oufrank e (ABILIFY) 2-11 by mouth Meth jamie 5 MG tablet 19:13: daily. st 27 benztropine 2017-09 Yes 1mg Q.5D Take 1 mg [place] (COGENTIN) 2-11 by mouth 2 Met hodi 1 MG tablet 19:13: (two) st 27 times a day. busPIRone 2017-09 Yes 15mg Q.[id number] Take 15 mg [facility] (BUSPAR) 10 2-11 [id number] by mouth 3 Methodi MG tablet 19:13: 3D (three) st 27 times a day. albuterol 2017-09 Yes 1{ampul Q.64877111 Take [address] (ACCUNEB) 1-27 e} [id number] ampule [facility] - 1.25 mg/3 13:20: [...] 13:20: daily as Me dical 58 needed. Center fluticasone 2017-09 Yes 1{puff} QD Inhale [address] -vilanterol 1-27 puff by [facility] - (BREO 13:20: mouth via Medical ELLIPTA) 58 inhaler Center 100-25 daily. mcg/dose DsDv busPIRone 2017-09 Yes 15mg Q.5D Take [address] (BUSPAR) 15 1-27 by mouth 2 Jeanie kes - MG [...] 13:20: with mouth Medical 58 Chronic daily. Center Bronchitis digoxin 2017-09 Yes 125ug QD Take 125 [facility] (LANOXIN) 1-27 mcg [facility] - 0.125 MG 13:20: mouth Medical tablet 58 daily. [place] venlafaxine 2017-09 Yes 150mg QD Take [address] (EFFEXOR-XR 1-27 mg by [facility] - ) 150 MG 24 13:20: mouth Medic al hr capsule 58 daily. [place] apixaban 2017-09 Yes 5mg QD Take [address] (ELIQUIS) 5 -27 by mouth Luke s - mg Tab 13:20: daily. Medical tablet 58 [place] levETIRAcet 2017-09 Yes 1000mg Q.5D Take 1,000 [...] 10 mg 13:20: daily. Medical tablet 58 [place] pregabalin 2017-09 Yes 25mg QD Take [address] (LYRICA) 25 1-27 by mouth Luke s - MG capsule 13:20: nightly. Med ical 58 [place] triamcinolo 2017-09 Yes 2{spray QD [address] ne 1-27 } by Nasal [facility] - (NASACORT) 13:20: route Medica l 55 mcg 58 daily. [place] nasal inhaler esomeprazol 2017-09 Yes 40mg QD Take [address] e (NEXIUM) 1-27 by mouth [facility] - 40 MG 13:20: daily. Medical capsule 58 Center albuterol 2017-09 Yes 2{puff} Inhale [address] HFA 1-27 puffs by [facility] - (VENTOLIN 13:20: mouth via Med ical HFA) 90 58 inhaler. [place] mcg/actuati on inhaler ranolazine 2017-09 Yes 500mg [...] s - 5 MG tablet 13:20: nightly. Va dical 57 Center Procedures This patient has no known procedures. Plan of Care Planned Activity Planned Date Details Comments Source Future Scheduled 2020-05-[address] [facility] Test 00:00:00 (#1) [code = Medical Center INFLUENZA VACCINE (#1)] Future Scheduled 2020-04-25 [facility]ZA VACCINE [place] 00:00:00 [code = INFLUENZA VACCINE] Future Scheduled 2002 Screening for [facility] Test 00:00:00 malignant neoplasm of cervix (procedure) [code = 024247088] Future Scheduled [address] [facility] - Test 00:00:00 malignant neoplasm Medical C enter of cervix (procedure) [code = 534324637] Future Scheduled 1997 COVID-19 VACCINE (1 [place] [facility] Test 00:00:00 of 2) [code = COVID-19 VACCINE (1 of 2)] Encounters Start End Encounter Admission Attending Care Care Encounter Source Date/Time Date/Time Type Type Clinicians Facility Department ID 2020-10-02 2020-10-02 NAKUL Rivera [id number] 09:32:59 10:14:43 Visit Navi Stafford [id number] Jacki [id number] Margo [id number] nal 9 [facility] 2017-09-06 2017-09-08 [id number] [facility] 10:12:00 02:32:00 LYLY Results Test Description Test Time Test Comments Results Result Comments Source SURG 2020-09-30 15:45:00 Test Item Value Reference Range Interpretation Geraldo lutz SURG RUN DATE: (test 09/30/20 H JAYMIE [facility] [place] - LAB PAGE 1 RUN TIME: 1544 code = Specimen Inquiry RUN USER: INTERFACE SURG) PATIENT: ADAM MARSH LOC: GA #: [id number] AGE/SX: 40/ F ROOM: RE09/29/[facility]: Linus Boone MD : 82 BED: DIS: STATUS: [facility] TLOC: SPEC #: PMC:S RECD: STATUS: MACIEL REChapis #: [id number] WU: 09/29/20 [facility] DR: Linus Boone MD ENTERED: 09/29/20 SP TYPE: SURG OTHR DR: Yessica snow Provider ORDERED: SURG PATH LVL 4 COPIES TO: Linus Boone MD [address] [place] [id number] [phone] Undefined Provider HISTOLOGY: TISSUE ID BLK PCS DHIRAJ LEV PROCEDURE DISPOSIT ION ____ ___ ___ ___ STOMACH, NOS A 1 2 PROCEDURES: SURG PATH LVL 4 (09/29/20) TISSUES: A. STOMAC H, NOS - GASTRIC BIOPSY CLINICAL HISTORY R10.13, K21.9, K92.0, R14.0, R11.2, R19.7, R19.4 CPT CODES CPT CODE(S): 38459 , , , , , , FINAL DIAGNOSIS Stomach, biopsy: MILD CHRONIC GASTRITIS NEGATIVE FOR INT ESTINAL METAPLASIA, DYSPLASIA, OR MALIGNANCY NEGATIVE FOR HELICOBACTER PYLORI ORGANISMS CIELO S DESCRIPTION Gastric biopsy. Received in formalin are two wilkinson tissue fragments, 0.4 cm each, al l as A. bk/nr Grossing performed at [facility] Pathology, [address], [address], [place] [address]. Button Machine Operator: Aditya Hanson M.D. CONTINUED ON NEXT PAGE RUN DATE: 09/30/20 [facility] PAGE 2 RUN TIME: 1545 Specimen Inquiry RUN USER: INTERFACE SPEC #: [facility]:S-[id number] PATIENT: ADAM MARSH #[id number] (Continued) MICROSCOPIC DESCRIPTION Gastric biopsy. Sections demonstrate gastric mucosa with mild chronic inflammation. No dysplasia or malignancy is identified. No evidence of Helicobacter pylori organisms or intestinal metaplasia is seen. Signed SIGNATURE ON FILE Gilmer Issa 09/30/20 1545 END OF REPORT COVID 19 INHOUSE [id number] 13:41:00 Test Item Value Reference Range Interpretation Comments COVID 19 INHOUSE AG NEGATIVE Negative Per marino facturer, (test code = negative result s should [id number]) be treated aspr esumptive and, if inconsi stent with clinical signs andsymptoms or necessary for patient man agement, should betested with an alternative mol ecular assay. Negative resultsdo not preclude SA RS-CoV-2 infection and s hould not be usedas the s ole basis for patient man agement decisions. Neg ative results should be considered in t he context of apatient's r ecent exposures, hist ory, presence of cli nicalsigns and symptoms co nsistent with COVID-19. BASIC METABOLIC [id number] 13:40:00 Test Item Value Reference Range Interpretation Comments SODIUM (test code = NA) 140 mmol/L 134-147 N POTASSIUM (test code = 3.6 mmol/L 3.4-5.0 N K) CHLORIDE (test code = 109 mmol/L 100-108 H CL) CARBON DIOXIDE (test 27 mmol/L 21-32 N code = CO2) ANION GAP (test code = 4.0 GAP calc 4.0-15.0 N GAP) GLUCOSE (test code = 90 MG/DL 70-110 N GLU) BLOOD UREA NITROGEN 7 MG/DL 7-18 N (test code = BUN) GLOMERULAR FILTRATION >=60 max estimate >60 RATE (test code = GFR) estGFR CREATININE (test code = 0.6 MG/DL 0.6-1.0 N CREAT) CALCIUM (test code = CA) 9.3 MG/DL 8.5-10.1 N - XR CHEST 1 [id number] 13:33:00 [facility] 1980 Sex: F Name: ADAM MARSH [facility] : [birth year] Age/S: 40 / F [address] Unit #: [id number] Loc: [place] [address] Phys: Linus Boone MD Acct: [id number] Dis Date: Status: PRE [facility] PHONE #: [phone] Exam Date: 09/28/2020 1326 FAX #: Reason: PREOP EXAMS: CPT: [id number] XR CHEST 1 V 71809 Fluoro Time: DAP (Gy m2): Air Kerma (mGy): EXAM: CHEST ONE VIEW INDICATION: PREOP LOCATION: B2 COMPARISON: None available TECHNIQUE: AP view of the chest FINDINGS: The heart size is normal.. There is a cardiac pacing device in the right chest with no apparent discontinuity of the leads. Thelungs are clear bilaterally. The pulmonary vasculature is normal. No pneumothorax or pleural effusion is identified. The osseous structures are normal. IMPRESSION: No acute cardiopulmonary process. at 8283 Reported and signed by: Lynda Pitts M.D. CC: Linus Boone MD PAGE 1 Signed Report Name: ADAM MARSH [facility] : 1980 Age/S: 40 / F [address] [place] [address] Unit #: [id number] Loc: [place] [address] Phys: Linus Boone MD Acct: [id number] Dis Date: Status: PRE [facility] PHONE #: [phone] Exam Date: 09/28/2020 1326 FAX #: Reason: PREOP EXAMS: CPT: [id number] XR CHEST 1 V 35793 Fluoro Time: DAP (Gy m2): Air Kerma (mGy): <Continued> Technologist: Shari Davila RT(R)(CT) Trnscb Date/Time: 09/28/2020 (7633) 16 Orig Print D/T: S: 09/28/2020 (4548) PAGE 2 SignedReportPROTHROMBIN [id number] 13:29:00 Test Item Value Reference Range Interpretation Comments PT PATIENT (test code = PTP) 10.6 SECONDS 9.3-12.9 N INTERNATIONAL NORMAL RATIO 0.95 INR Unit 0.8-1.2 N (test code = INR) THROMBOPLASTIN TIME [id number] 13:29:00 Test Item Value Reference Range Interpretation Comments THROMBOPLASTIN TIME PARTIAL 28.0 SECONDS 26-35 N (test code = PTT) CBC W/AUTO [id number] 13:26:00 Test Item Value Reference Range Interpretation Comments WHITE BLOOD CELL (test code = 8.6 K/mm3 3.5-11.0 N WBC) RED BLOOD CELL (test code = 4.79 M/mm3 4.70-6.10 N RBC) HEMOGLOBIN (test code = HGB) 14.0 G/DL 10.4-14.9 N HEMATOCRIT (test code = HCT) 43.9 % 31.5-44.1 N MEAN CELL VOLUME (test code = 91.6 Fl 84.5-98.6 N MCV) MEAN CELL HGB (test code = MCH) 29.2 pg 27.0-34.2 N MEAN CELL HGB CONCETRATION 31.9 G/DL 31.5-34.0 N (test code = MCHC) RED CELL DISTRIBUTION WIDTH 12.9 SD 11.5-14.5 N (test code = RDW) PLATELET COUNT (test code = 246 K/mm3 150-450 N PLT) MEAN PLATELET VOLUME (test code 9.80 fL 7.0-10.5 N = MPV) NEUTROPHIL % (test code = NT%) 71.7 % 40-76 N IMMATURE GRANULOCYTE % (test 0.2 % 0.0-5.0 N code = IG%) LYMPHOCYTE % (test code = LY%) 20.7 % 20.5-51.1 N MONOCYTE % (test code = MO%) 6.9 % 1.7-9.3 N EOSINOPHIL % (test code = EO%) 0.3 % 0.0-6.0 N BASOPHIL % (test code = BA%) 0.2 % 0.0-2.0 N NUCLEATED RBC % (test code = 0.0 /100WBC% 0.0-1.0 N NRBC%) NEUTROPHIL # (test code = NT#) 6.2 K/mm3 1.8-7.6 N IMMATURE GRANULOCYTE # (test 0.02 x10 3/uL 0.00-0.03 N code = IG#) LYMPHOCYTE # (test code = LY#) 1.8 K/mm3 0.6-3.2 N MONOCYTE # (test code = MO#) 0.6 K/mm3 0.3-1.1 N EOSINOPHIL # (test code = EO#) 0.0 K/mm3 0.0-0.4 N BASOPHIL # (test code = BA#) 0.0 K/mm3 0.0-0.1 N NUCLEATED RBC # (test code = 0.0 K/mm3 0.0-0.1 N NRBC#) MANUAL DIFF REQUIRED (test code NO DIFF/SCN CRITERIA = MDIFF) POCT-GLUCOSE [id number] 10:22:00 Test Item Value Reference Range Interpretation Comments POC-GLUCOSE METER 102 mg/dL 70-110 TESTED AT [facility] 6720 (ARNOL) (test code = [place] 1538) [address] MR, MRA, BRAIN, WITHOUT [id number] 09:32:00Reason for exam:->Ischemic Stroke EvaluationFINAL REPORT MRA Head CLINICAL HISTORY: Ischemic Stroke TECHNIQUE: MRA of the head utilizing 3-D fiqr-dv-mnunep technique, with 3-D reconstructions. COMPARISON: None FINDINGS: There is no evidence of intracranial aneurysm, focal stenosis, or major branch vessel occlusion. IMPRESSION: No evidence for a major burns paiute of Mendes proximal branch vessel occlusion. MRA Neck CLINICAL HISTORY: Ischemic Stroke TECHNIQUE: MRA of the neck utilizing 2-D and 3-D vknu-oq-eoubma technique, with 3-D reconstructions. COMPARISON: None FINDINGS: The carotid arteries in the neck are patent including their bifurcations. There is antegrade flow in the vertebral arteries in the neck. IMPRESSION: No evidence of hemodynamically significant stenosis in the cervical carotid or vertebral arteries by NASCET criteria. Signed: Santos Winn [facility] Verified Date/Time: 08/21/2018 09:32:09 Reading Location: [address] Neuro Reading Room MR, MRA, NECK, WITHOUT IV [id number] 09:32:00Reason for exam:->Ischemic Stroke EvaluationFINAL REPORT MRA Head CLINICAL HISTORY: Ischemic Stroke TECHNIQUE: MRA of the head utilizing 3-D wqvk-ee-hldpel technique, with 3-D reconstructions. COMPARISON: None FINDINGS: There is no evidence of intracranial aneurysm, focal stenosis, or major branch vessel occlusion. IMPRESSION: No evidence for a major burns paiute of Mendes proximal branch vessel occlusion. MRA Neck CLINICAL HISTORY: Ischemic Stroke TECHNIQUE: MRA of the neck utilizing 2-D and 3-D lbgm-sr-aqugvs technique, with 3-D reconstructions. COMPARISON: None FINDINGS: The carotid arteries in the neck are patent including their bifurcations. There is antegrade flow in the vertebral arteries in the neck. IMPRESSION: No evidence of hemodynamically significant stenosis in the cervical carotid or vertebral arteries by NASCET criteria. Signed: Santos Winn Verified Date/Time: 08/21/2018 09:32:09 Reading Location: [address] Neuro Reading Room MR, BRAIN, WITHOUT [id number] 09:25:00Reason for exam:- >Ischemic Stroke EvaluationFINAL REPORT [...] Verified Date/Time: 08/21/2018 09:25:25 Reading Location: [facility] C013 Neuro R eading Room POCT-GLUCOSE [id number] 21:26:00 Test Item Value Reference Range Interpretation Comments POC-GLUCOSE METER 119 mg/dL 70-110 H TESTED AT [place] [address] [facility] (test code = A[place] 1538) [address] POCT-GLUCOSE [id number] 18:03:00 Test Item Value Reference Range Interpretation Comments POC-GLUCOSE METER 119 mg/dL 70-110 H TESTED AT [place] [address] ([facility]) (test code = AYLIN Rivera [facility] 1538) [address] POCT-GLUCOSE [id number] 12:39:00 Test Item Value Reference Range Interpretation Comments POC-GLUCOSE METER 120 mg/dL 70-110 H TESTED AT [place] [address] ([facility]) (test code = AYLIN Rivera [facility] 1538) [address] RAD, CHEST, 1 VIEW, NON [id number] 12:04:00Reason for exam:->To Locate Heart Device (Pacemaker)Should [...] MDReport Verified Date/Time: 08/20/2018 12:04:06 Reading Location: [facility] Radiology Reading Room POCT-GLUCOSE [id number] 09:17:00 Test Item Value Reference Range Interpretation Comments POC-GLUCOSE METER 121 mg/dL 70-110 H TESTED AT [place] [address] ([facility]) (test code = AYLIN Rivera [facility] 1538) [address] BASIC METABOLIC [id number] 06:56:00 Test Item Value Reference Range Interpretation [...] NOT APPLICABLE FOR DIALYSIS PATIEN TS. POCT-GLUCOSE [id number] 21:09:00 Test Item Value Reference Range Interpretation Comments POC-GLUCOSE METER 109 mg/dL 70-110 TESTED AT [facility] 6720 (BEAKER) (test code = [facility] 1538) [address] POCT-GLUCOSE [id number] 17:15:00 Test Item Value Reference Range Interpretation Comments POC-GLUCOSE METER 117 mg/dL 70-110 H TESTED AT [place] [address] ([facility]) (test code = [facility] 1538) [address] VITAMIN B12 AND [id number] 06:39:00 Test Item Value Reference Range Interpretation Comments VITAMIN B12 (BEAKER) (test code = 524 pg/mL 213-816 774) FOLATE (BEAKER) (test code = 362) 13.5 ng/mL >=7.0 BASIC METABOLIC [id number] 05:48:00 Test Item Value Reference Range Interpretation [...] S NOT APPLICABLE FOR DIALYSIS PATIEN TS. [id number] 15:42:00 Test Item Value Reference Range Interpretation Comments RPR SCREEN (BEAKER) (test code = Nonreactive Nonreactive 420) HEMOGLOBIN [id number] 09:14:00 Test Item Value Reference Range Interpretation Comments HEMOGLOBIN A1C (BEAKER) (test code = 5.3 % 4.3-6.1 368) TSH/FREE T4 IF [id number] 04:49:00 Test Item Value Reference Range Interpretation Comments THYROID STIMULATING HORMONE 3.18 uIU/mL 0.35-4.94 (BEAKER) (test code = 772) BASIC METABOLIC [id number] 04:38:00 Test Item Value Reference Range Interpretation [...] NOT APPLICABLE FOR DIALYSIS PATIEN TS. LIPID [id number] 04:38:00 Test Item Value Reference Range Interpretation [...] 130-159 High 160-189 Very High >=190HEPATIC FUNCTION [id number] 04:38:00 Test Item Value Reference Range Interpretation [...] (test code = 413) AFB Culture and [id number] 13:24:00Specimen/Source: Wound/PACEMAKERCollected: 09/05/2017 19:45 Status: Final Last Updated: 11/01/2017 13:24 BIY-Nysbi-Ecgwhtaiqspw (Final) (Final) 09/07/17 No acid fast bacill seen on direct smear Culture Result (Final) (Final) 11/01/17 No growth of AFB at six (6) weeksFungus Culture with [id number] 12:12:00 Specimen/Source: Wound/PACEMAKERCollected: 09/05/2017 19:45 Status: Final Last Updated: 10/22/2017 12:12 Fungal Smear Result (Final) (Final) 09/06/17 No yeast or hyphae seen Culture Result (Final) (Final) 10/22/17 No fungus isolated at 6 weeksCulture, Blood [id number] 08:23:00Specimen: BloodCollected: 09/04/2017 20:30 Status: Final Last Updated: 09/10/2017 08:23 Culture Result (Final) (Final) No Growth After 5 DaysCulture, Blood [id number] 08:23:00Specimen: BloodCollected: 09/04/2017 20:15 Status: Final Last Updated: 09/10/2017 08:23 Culture Result (Final) (Final) No Growth After 5 DaysCulture, Wound [id number] 08:52:00Specimen: WoundCollected: 09/05/2017 19:45 Status: Final Last Updated: 09/08/2017 08:52 Gram Stain (Final) (Final) 09/06/17 No organisms seen, Few WBC's Culture Result (Final) (Final) 09/08/17 Anaerobic culture:No anaerobes isolated at 3 days Isolate (Final) (Final) 09/07/17Few Staph-coag positive Isolate Staph-coag positive JERMAINE (mcg/ml) Amoxicillin/Clav (AUG)<=4/2 Susceptible Ampicillin (AM) >8 Resistant Ampicillin/Sulb (A/S) <=8/4 Susceptible Cefazolin (CFZ) <=4 Susceptible Ceftriaxone (CASUALTY CLAIM ADJUSTER) <=4 Susceptible Chloramphenicol (C) <=8 Susceptible Ciprofloxacin (CP) <=1 Susceptible Clindamycin (CM) 0.5 Susceptible Erythromycin (E) <=0.25 Susceptible Gentamicin (GM) <=1 Susceptible Imipenem (IMP) <=4 Susceptible Levofloxacin (LEV) <=0.5 Susceptible Linezolid (LNZ) 4 Susceptible Oxacillin (OX1) 0.5 Susceptible Penicillin (P) >8 Resistant Rifampin (RA) <=1 Susceptible Tetracycline (TE) <=1 Susceptible Trimethoprim/Sulfa <=0.5/9.Susceptible (SXT) 5 Vancomycin (VA) 2 SusceptibleRenal [id number] 08:51:00 Test Item Value Reference Range Interpretation [...] National Kidney Foundation,http :[email or web address] ep.nih.gov CBC with [id number] 07:39:00 Test Item Value Reference Range Interpretation [...] code = ALYMPH) 1.7 K/cumm 0.5-4.6 N [place] Abs (test code = AMONO) 0.3 K/cumm 0.0-1.2 N Eos Abs (test code = AEOS) 0.29 K/cumm 0.00-0.74 N Baso Abs (test code = ABASO) 0.0 K/cumm 0.00-0.21 N Vancomycin, [id number] 12:33:00 Test Item Value Reference Range Interpretation Comments Vanco, Trou (test code = VANTR) 7.9 ug/mL 10.0-20.0 L Magnesium, [id number] 06:37:00 Test Item Value Reference Range Interpretation Comments Magnesium (test code = MG) 2.4 mg/dL 1.7-2.5 N Renal [id number] 06:29:00 Test Item Value Reference Range Interpretation [...] National Kidney Foundation,http :[email or web address] ep.nih.gov BHCG, Serum, [id number] 06:26:00 Test Item Value Reference Range Interpretation Comments Preg Qual [Se] (test code = BSHCG) Negative Negative N CBC with [id number] 06:24:00 Test Item Value Reference Range Interpretation [...] code = ALYMPH) 1.6 K/cumm 0.5-4.6 N [place] Abs (test code = AMONO) 0.4 K/cumm 0.0-1.2 N Eos Abs (test code = AEOS) 0.18 K/cumm 0.00-0.74 N Baso Abs (test code = ABASO) 0.0 K/cumm 0.00-0.21 N XR CHEST 1 [id number] 16:29:55XR CHEST 1 VIEWLOCATION: [id number]: None.INDICATION: REVIEW PICC LINE PLACEMENTDISCUSSION:AP chest and [...] = TSH) 3.44 mIU/mL 0.270-4.200 N Lipid [id number] 05:47:00 Test Item Value Reference Range Interpretation Comments Cholesterol (test 160 mg/dL 0-200 N code = CHOL) Triglycerides (test 126 mg/dL 9-200 N code = TRIG) HDL (test code = 35 mg/dL 50-60 L HDL) Chol/HDL (test code 4.6 Ratio 0.0-4.4 H = CHOLPHDL) LDL, Calculated 100 0-130 N (NOTE)RISK O F HEART (test code = LDLC) DISEASEPu blished by Swedish Heart AssociationAnal yte Optim al Boderline Increased RiskC HOL <200 200-239 >240TRI G <150 150-199 >200HDL Male: >60 <40HDL Female: >60 <50 LDL < 100 130-15 9 >160 LDL NEAR OPTIMAL IS 100- 129 VLDL (test code = 25 mg/dL 5-40 N VLDL) LDL/HDL (test code = 3 LDLPHDL) Basic Metabolic [id number] 05:47:00 Test Item Value Reference Range Interpretation [...] the National Kidney Foundation,http :[email or web address] ep.nih.gov Magnesium, [id number] 05:47:00 Test Item Value Reference Range Interpretation Comments Magnesium (test code = MG) 2.3 mg/dL 1.7-2.5 N CBC with [id number] 05:36:00 Test Item Value Reference Range Interpretation [...] code = ALYMPH) 2.2 K/cumm 0.5-4.6 N [place] Abs (test code = AMONO) 0.3 K/cumm 0.0-1.2 N Eos Abs (test code = AEOS) 0.24 K/cumm 0.00-0.74 N Baso Abs (test code = ABASO) 0.0 K/cumm 0.00-0.21 N Partial Thromboplastin [id number] 21:26:00 Test Item Value Reference Range Interpretation Comments aPTT (test code = PTT) 29.00 seconds 24.39-37.25 N Prothrombin [id number] 21:26:00 Test Item Value Reference Range Interpretation Comments PT (test code = PT) 10.70 seconds 9.78-13.35 N INR (test code = INR) 0.95 Ratio 0.6-1.2 N Comprehensive Metabolic [id number] 21:23:00 Test Item Value Reference Range Interpretation [...] National Kidney Foundation,http :[email or web address] ep.nih.gov CBC with [id number] 21:16:00 Test Item Value Reference Range Interpretation [...] code = ALYMPH) 2.2 K/cumm 0.5-4.6 N [place] Abs (test code = AMONO) 0.4 K/cumm 0.0-1.2 N Eos Abs (test code = AEOS) 0.17 K/cumm 0.00-0.74 N Baso Abs (test code = ABASO) 0.1 K/cumm 0.00-0.21 N
--- OUTSIDE RECORDS SUMMARY | 2020-10-08 11:17 | XMS REPORT | Summary of Care ---
:1980 Author Organization [facility] DaWanda Address [address] [place] [id number] Care Team Providers Name Role Phone Joshua Reyes Lila Insurance Hmo Yoni Mora MD Primary Care Provider Reason for Visit Reason Comments Appointment Encounter Details Date Type Department Care Team Description 08/19/2020 Telephone [facility] Cardiology- Navi Hines MD Appointment [address] [facility], [address] [place] [address] [place] [address] [phone] Allergies Active Allergy Reactions Severity Noted Date [...] as of this encounter (statuses as of 08/19/2020) Medications Medication Sig Dispensed Refills Start Date [...] in 06/16/2017 Active am busPIRone 15 mg tablet [...] DVT (deep vein thrombosis) daily with meals. fluticasone furoate-vilanteroL Inhale 1 Puff daily. 60 Each 11 07/16/2020 Active (BREO ELLIPTA) 200-25 mcg/dose DsDvIndications: Moderate persistent asthma without complication tiotropium bromide (SPIRIVA Inhale 1 Puff daily. 4 g Active RESPIMAT) 2.5 mcg/actuation MistIndications: Moderate persistent [...] breakfast and dinner. digoxin 125 mcg (0.125 mg) Take 1 tablet by 90 tablet 1 2019 Active tabletIndications: History of mouth daily. DVT (deep vein thrombosis), Inappropriate sinus tachycardia documented as of this encounter (statuses as of 08/19/2020) Active Problems Problem Noted Date Inappropriate sinus [...] Added automatically from request for yara mcdaniels [id number] Abdominal pain, unspecified abdominal location 018 Overview: Added automatically from request for yara arslan [id number] Nausea and vomiting, intractability of vomiting not sp ecified, unspecified 07/13/2018 vomiting type Overview: Added automatically from request for yara arslan [id number] Non-cardiac chest pain 04/27/2018 Essential hypertension 04/27/2018 Pacemaker 04/27/2018 PAF (paroxysmal atrial fibrillation) 04/27/2018 History of cardiac pacemaker in situ 08/23/2017 Tachycardia, unspecified 06/22/2017 Elevated liver enzymes 07/23/2014 Pseudoseizure 04/15/2014 Left sided numbness 03/22/2014 Prediabetes 09/24/2013 Loss of weight 09/24/2013 Hypothyroidism 09/24/2013 Overview: ICD10 Diagnosis Term Yoker Utility Hypoglycemia 08/21/2013 Overview: ICD10 Diagnosis Term Yoker Utility documented as of this encounter (statuses as of 08/19/2020) Resolved Problems Problem Noted Date Resolved Date Stroke-like symptoms 05/10/2020 05/12/2020 Stroke 06/15/2019 05/12/2020 Metabolic syndrome X 07/23/2014 07/23/2014 documented as of this encounter (statuses as of 08/19/2020) Immunizations Name Administration Dates Next Due Influenza [...] with No / Unsure 08/05/2020 10:16 AM [employer] someone who was confirmed or suspected to have Coronavirus / COVID-19? documented as of this encounter Last Filed Vital Signs Not on filedocumented in this encounter Miscellaneous Notes Telephone Encounter - Mayi Chauhan RN - 08/19/2020 10:01 AM CSTPatient states that she is in the hospital at [facility] and will be released today. She said she felt light-headed and like she was going to pass out. She is requesting appointment to see dr Hines soon as she will be discharged today. Appointment made for Monday. documented in this encounter Plan of Treatment Date Type Specialty Care Team Description 08/24/2020 Office Visit Cardiology Navi Hines MD [address] [place] [address] [place] [address] [phone] 09/01/2020 Laboratory Only Cardiology Pacemaker/Icd, Adc 09/09/2020 Office Visit Cardiology Gucci Joshi MD [address] [place], [place] [address] 10/02/2020 Office Visit Cardiology Navi Hines MD [address] [place] [address] [place], [place] [address] [phone] 11/05/2020 Office Visit Pulmonary Disease Tucker Guy DO [address] [place] [address] 07/21/2021 Office Visit Pulmonary Disease Heena Bailey MD [address] [phone] [address] [phone] Health Maintenance Due Date Last Done Comments VARICELLA VACCINES (1 of 2 - 2-dose 1982 childhood series) DTaP,Tdap,and Td Vaccines (1 - Tdap) 2000 PAP SMEAR 06/21/2007 06/21/2004 PNEUMOCOCCAL 0-64 YEARS COMBINED SERIES (3 06/23/201806/23, 11/16/2015 of 3 - PCV13) INFLUENZA VACCINE (#1) 2020 11/16/2015 Depression Screening 12/09/2020 12/10/2019 documented as of this encounter Implants Implanted Type Area Agricultural Services Director Device Shelf Expiration Model / Identifier Date Serial / Lot Tendril Mri,A Lead-11/01/[address] [facility] [employer] RA- [id number] / Implanted: Qty: 1 on 11/01/2017 by Imtiaz Soto MD [id number] / Description:This implant is MR Condition al and a member of a 1.5T Only MR Conditional System. Tenril Mri,V Lead-11/01/[address] [facility] [employer] [id number] / Implanted: Qty: 1 on 11/01/2017 by Imtiaz Soto MD [id number] / Description:This implant is MR Condition al and a member of a 1.5T Only MR Conditional System. Assurity Mri-11/01/[address] [employer] [id number] / Implanted: Qty: 1 on 11/01/2017 by Imtiaz Soto MD [id number] / Description:This device ids MR Condition al for a 1.5T Scanner Only. documented as of this encounter Results Not on filedocumented in this encounter Insurance Payer Benefit Plan / Subscriber ID Effective Phone Address T e Group Dates LYNDSEY SOLORIO [id number] 2011-Kobe [place] [facility] [address] MANAGED MEDICAID [place], [place] documented as of this encounter
--- OUTSIDE RECORDS SUMMARY | 2020-10-08 11:18 | XMS REPORT | Summary of Care ---
:1980 Author Organization [facility] TimZon Address [address] [place] [address] Care Team Providers Name Role Phone Joshua Reyes Lila Insurance Hmo Yoni Mora MD Primary Care Provider Reason for Visit Reason Comments Follow-up Encounter Details Date Type Department Care Team Description 08/24/2020 Office Visit [facility] Navi Hines Non-cardiac c hest pain (Primary Dx); Cardiology- Nydia Merida MD Inappropriate sinus tachycardia; [address]pit[address]; [address], [address] Sinus tachycardia; [place], [place] Essential hyper tension; [phone] PAF (paroxysmal atrial fibrillation); [phone] Dizzy spells; [phone] Syncope, unspec ified syncope type (Fax) Allergies Active Allergy Reactions Severity Noted Date Comments Adhesive Tape-Silicones Rash Low 08/20/2013 Can use papertape. Aluminum Aspirin Anaphylaxis High 01/19/2016 Aspirin Anaphylaxis High 12/31/2013 Diphenhydramine Hcl Hives 01/04/2018 Diltiazem Hcl Shortness of Breath 06/25/2019 Cefixime Rash Low 04/29/2019 Ciprofloxacin Other - See comments 04/20/2016 Muscle aches Clindamycin Rash 01/04/2018 Coconut Hives, Rash 08/04/2018 Codeine Rash 06/05/2018 Has recently [...] as of this encounter (statuses as of 08/24/2020) Medications Medication Sig Dispensed Refills Start Date [...] mouth 2 (two) History of DVT (deep vein times daily with thrombosis) meals. fluticasone Inhale 1 Puff 60 Each 11 [...] capsuleIndications: (three) times Moderate persistent daily as needed asthma without for Cough. complication pregabalin (LYRICA) 50 mg Take 50 mg by 0 Active capsule mouth at bedtime. esomeprazole (NEXIUM) 20 Take 20 mg by 0 Active mg capsule mouth 2 (two) times daily before breakfast and dinner. digoxin 125 mcg (0.125 Take 1 tablet by 90 tablet 1 08/11/2020 Active mg) tabletIndications: mouth daily. History of DVT (deep vein thrombosis), Inappropriate sinus tachycardia carBAMazepine (TEGRETOL) Take 200 mg by 0 08/24/ Discontinued 200 mg tablet mouth at 2019 bedtime. documented as of this encounter (statuses as of 08/24/2020) Active Problems Problem Noted Date Inappropriate sinus [...] Added automatically from request for yara arslan [id number] Abdominal pain, unspecified abdominal location 018 Overview: Added automatically from request for yara arslan [id number] Nausea and vomiting, intractability of vomiting not sp ecified, unspecified 07/13/2018 vomiting type Overview: Added automatically from request for yara arslan [id number] Non-cardiac chest pain 04/27/2018 Essential hypertension 04/27/2018 Pacemaker 04/27/2018 PAF (paroxysmal atrial fibrillation) 04/27/2018 History of cardiac pacemaker in situ 08/23/2017 Tachycardia, unspecified 06/22/2017 Elevated liver enzymes 07/23/2014 Pseudoseizure 04/15/2014 Left sided numbness 03/22/2014 Prediabetes 09/24/2013 Loss of weight 09/24/2013 Hypothyroidism 09/24/2013 Overview: ICD10 Diagnosis Term Apparel Machinery Instructor Utility Hypoglycemia 08/21/2013 Overview: ICD10 Diagnosis Term Apparel Machinery Instructor Utility documented as of this encounter (statuses as of 08/24/2020) Resolved Problems Problem Noted Date Resolved Date Stroke-like symptoms 05/10/2020 05/12/2020 Stroke 06/15/2019 05/12/2020 Metabolic syndrome X 07/23/2014 07/23/2014 documented as of this encounter (statuses as of 08/24/2020) Immunizations Name Administration Dates Next Due Influenza [...] been in contact with No / Unsure 08/24/2020 10:39 AM FULFILLMENT ASSOCIATE someone who was confirmed or suspected to have Coronavirus / COVID-19? documented as of this encounter Last Filed Vital Signs Vital Sign Reading Time Taken Comments Blood Pressure 122/84 08/24/2020 10:46 AM FULFILLMENT ASSOCIATE Pulse 125 08/24/2020 10:46 AM FULFILLMENT ASSOCIATE Temperature - - Respiratory Rate - - Oxygen Saturation 97% 08/24/2020 10:46 AM FULFILLMENT ASSOCIATE Inhaled Oxygen Concentration - - Weight 56.6 kg (124 lb 12.8 oz) 08/24/2020 10:46 AM FULFILLMENT ASSOCIATE Height 149.9 cm (4' 11") 08/24/2020 10:46 AM FULFILLMENT ASSOCIATE Body Mass Index 25.21 08/24/2020 10:46 AM FULFILLMENT ASSOCIATE documented in this encounter Progress Notes Navi Hines MD - 08/24/2020 11:00 AM CST [facility] Cardiology Consult Note Patient: Jenni Draper Date of : 1980 Primary Care Physician: Diya Mora CHIEF COMPLAINT: Chief Complaint Patient presents with Follow-up History of Present Illness: Jenni Draper is a 40 year old female presented to the office to follow up care for historyof PAF/palpitations syndrome/atypical chest pain/syncope History obtained talking to patient herself. Since the last OV, she was admitted initially to [facility] for possible stroke/seizures 04/2020. Then 07/2020 for syncope. Since then she was admitted recently in [facility] for chest discomfort/dizzy spells. The ER records was reviewed which shows serial enzymes were negative noted to have elevated LDL as before and mildly elevated alkaline phosphatase. AN NYHA Class II stable. Continues to have palpitations that happens at random with no specific aggravating or relieving factors. No PND or orthopnea. No pedal edema. Recently saw EP and was recommended Holter monitor. Admitted for 10/2019 was admitted to [facility] for syncope, cp, sob, palpitations. She was given IV digoxin for abnormal heart rhythm labelled as "VT" and developed digoxin toxicity. Transferred to [facility]. Coreg/dig was DC. Toprol XL was [...] I personally reviewed, pertinent results as below: ECG 07/2020 Sinus tachycardia Otherwise normal ECG Echo 04/2020 Interpretation Summary A two-dimensional transthoracic echocardiogram with M-mode and Doppler was performed. The study was technically adequate. Compared to prior study, there is no significant change. Left ventricular systolic function is normal. Ejection Fraction = 55-60%. Diastolic function is normal. Injection of agitated saline contrast documented no interatrial shunt. Estimated RA pressure is 0-5 mmHg. Right ventricular systolic pressure is 20-25 mmHg. EKG 11/2018 shows sinus tachycardia with nonspecific [...] 2017 was reviewed. Patient was referred to [facility] on September 05, 2017 for evaluation [...] INSERTION 10/2017 [facility]; Dr Imtiaz Soto, [facility], inserted twice Family History Problem [...] years: 0.60 Quit date: 05/09/2003 Years since quittin.3 Smokeless tobacco: Never Used Tobacco comment: quit [...] file Gets together: Not on file Attends jainism service: Not on file Active member of [...] See comments Muscle aches Clindamycin Rash Coconut Hives and Rash Codeine Rash Has recently taken codeine [...] TABLET Take 1 tablet by mouth daily. ESOMEPRAZOLE (NEXIUM) 20 MG CAPSULE Take 20 mg by mouth 2 (two) times daily before breakfast anddinner. FLUTICASONE FUROATE-VILANTEROL (BREO ELLIPTA) 200-25 MCG/DOSE DSDV Inhale 1 Puff daily. LANCETS (TRUEPLUS LANCETS) 33 GAUGE MISC Use as directed. R 73.03, Check once daily LEVETIRACETAM 500 MG TABLET Take 2 tablets by mouth 2 (two) times daily. LORATADINE (CLARITIN) 10 MG TABLET as needed. PREGABALIN (LYRICA) 50 MG CAPSULE Take 50 mg by mouth at bedtime. TIOTROPIUM BROMIDE (SPIRIVA RESPIMAT) 2.5 MCG/ACTUATION MIST Inhale 1 Puff daily. VENLAFAXINE 75 MG TABLET Take 75 mg by mouth daily. VENLAFAXINE XR 150 MG 24 HR CAPSULE 150 mg at bedtime. START taking Modified Medications as Prescribed No medications on file STOP taking these medications CARBAMAZEPINE (TEGRETOL) 200 MG TABLET Take 200 mg by mouth at bedtime. REVIEW OF SYSTEMS: Comprehensive 10-system review was conducted and were negative except for what's noted in the HPI. The following systems were reviewed: Constitutional, cardiovascular, respiratory, gastrointestinal, genitourinary, musculoskeletal, neurologic, psychiatric, endocrinological, and hematological. PHYSICAL EXAMINATION: Vitals: 08/24/20 1046 BP: 122/84 Pulse: 125 SpO2: 97% Weight: 124 lb 12.8 oz (56.6 kg) Height: 4' 11" (1.499 m) General: no apparent distress HEENT: normocephalic atraumatic [...] 5.6 WBC (10*3/L) Date Value 07/29/2020 6.16 NA Date Value 07/29/2020 138 mmol/L 03/24/2014 136 MMOL/L SODIUM-Q (mmol/L) Date Value 07/23/2014 145 No results found for: PT PLT x10^3 (/uL) Date Value 03/24/2014 220 PLT (10*3/L) Date Value 07/29/2020 230 K Date Value 07/29/2020 4.0 mmol/L 03/24/2014 4.2 MMOL/L POTASSIUM-Q (mmol/L) Date Value 07/23/2014 4.9 PT INR (no units) Date Value 03/22/2014 1.0 INR (no units) Date Value 07/28/2020 1.0 HGB Date Value 07/29/2020 13.4 g/dL 03/24/2014 13.0 G/DL BUN Date Value 07/29/2020 14 mg/dL 03/24/2014 20 MG/DL UREA NITROGEN (BUN)-Q (mg/dL) Date Value 07/23/2014 12 HCT (%) Date Value 07/29/2020 40.6 03/24/2014 38.8 CREATININE Date Value 07/29/2020 0.70 mg/dL 03/24/2014 0.71 MG/DL CREATININE-Q (mg/dL) Date Value 07/23/2014 0.70 LIPID PROFILE GLUCOSE Date Value 07/29/2020 116 mg/dL (H) 03/24/2014 114 MG/DL (H) GLUCOSE-Q (mg/dL) Date Value 07/23/2014 93 CHOL Date Value 05/10/2020 207 mg/dL (H) 03/23/2014 171 MG/DL TSH LDL CHOL Date Value 05/10/2020 140 mg/dL 03/23/2014 104 MG/DL TSH Date Value 05/10/2020 8.45 mIU/L (H) 12/01/2005 2.72 uIU/mL TSH, 3RD GENERATION-Q (mIU/L) Date Value 07/23/2014 4.25 CARDIAC ENZYMES HDL CHOL (MG/DL) Date Value 03/23/2014 52 HDL (mg/dL) Date Value 05/10/2020 31 (L) No results found for: CK TRIG Date Value 05/10/2020 178 mg/dL (H) 03/23/2014 73 MG/DL LFTs No results found for: CKMB AST(SGOT) (U/L) Date Value 07/28/2020 36 03/22/2014 59 (H) AST-Q (U/L) Date Value 07/23/2014 23 TROPONIN I (ng/mL) Date Value 07/29/2020 <0.012 ALT(SGPT) (U/L) Date Value 05/30/2019 26 03/22/2014 68 (H) ALT-Q (U/L) Date Value 07/23/2014 24 ALTv (U/L) Date Value 07/28/2020 25 No results found for: BNP LDL CHOL Date Value 05/10/2020 140 mg/dL 03/23/2014 104 MG/DL Recent Labs 07/29/20 0303 TROPNI <0.012 NT-proBNP (pg/mL) Date Value 07/28/2020 34 LDL CHOL Date Value 05/10/2020 140 mg/dL 03/23/2014 104 MG/DL ASSESSMENT/PLAN 1. Non-cardiac chest pain 2. Inappropriate sinus tachycardia 3. Palpitations 4. Sinus tachycardia 5. Essential hypertension 6. PAF (paroxysmal atrial fibrillation) 7. Dizzy spells 8. Syncope, unspecified syncope type Atypical chest pain: Cardiac CTA 01/2019: Neg. Reassured that her chest pain is non-cardiac etiology. Recommend noncardiac work up for chest pain with her PCP. DC Ranexa since last OV 11/2019. Sinus tachycardia/IST: EP study negative 01/2020 for any inducible arrhythmias. No sustained SVT. No VT/VF. No evidence of accessory pathways. Currently on Coreg 25 mg BiD, digoxin 125 mcg daily. Tried Ivabradine twice but unable to tolerate. First time she had rash second time she passed out and was stopped. We had tried Cardizem CD 120 (but had worsening AN hence stopped). She reports having a digoxin level done today [facility] ordered by her PCP. Following up with the EP Dr Sharp. Recurrent syncope: No specific cardiac etiology noted. Recent Holter monitor ordered by EP was reviewed with her. No significant arrhythmias noted. Following up with the EP Dr Sharp. History of PAF: but EP study negative 01/2020 for any inducible arrhythmias. No sustained SVT. No VT/VF. No evidence of accessory pathways. On Eliquis 5 mg twice daily. Recurrent DVT in the past per old records: On Eliquis. 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 Dyslipiedemia: on lipitor 10 mg daily. She reports is being planned to be changed to a different statin because of the elevated LFTs noted. HTN: on Coreg 25 mg BiD. Home BP log recommended. Cross check his BP machine. Appropriate ways to check home BP discussed. Goals BP < 130/80 stressed. Explained if BP > 130/80, adviced to send us the log. Lifestyle modifications stressed. Elevated LFTs: Following primary care physician. Follow up as planned in September. Follow up with device clinic as planned. Recommended goal BP < 130/80 consistently, LDL << 100, HbA1c < 6.5. No orders of the defined types were placed in this encounter. Requested Prescriptions No prescriptions requested or ordered in this encounter Patient's diease process and its evaluation and [...] in the answers given. We reviewed the [place] [employer] recommendations for reduction of overall [...] feel free to call our office at [phone]. I would be happy to be of further assistance for Jenni Draper wellbeing. Kevin Hines MD Gravure Press Operator, Division of Cardiology [facility] ILLMENT ASSOCIATE documented in this encounter Plan of Treatment Date Type Specialty Care Team Description 09/01/2020 Laboratory Only Cardiology Pacemaker/Icd, Adc 09/09/2020 Office Visit Cardiology Gucci Joshi MD [address] [place], [place] [address] 10/02/2020 Office Visit Cardiology Navi Hines MD [address] [phone] 11/05/2020 Office Visit Pulmonary Disease Tucker Guy, [facility] [place] [phone] 07/21/2021 Office Visit Pulmonary Disease Heena Bailey MD [address] [address] Health Maintenance Due Date Last Done Comments VARICELLA VACCINES (1 of 2 - 2-dose 1982 childhood series) DTaP,Tdap,and Td Vaccines (1 - Tdap) 2000 PAP SMEAR 06/21/2007 06/21/2004 PNEUMOCOCCAL 0-64 YEARS COMBINED SERIES (3 06/23/201806/23, 11/16/2015 of 3 - PCV13) INFLUENZA VACCINE (#1) 2020 11/16/2015 Depression Screening 12/09/2020 12/10/2019 documented as of this encounter Implants Implanted Type Area Scrub Woman Device Shelf Expiration Model / Identifier Date Serial / Lot Tendril Mri,A Lead-11/01/[address] [employer] RA- [id number] / Implanted: Qty: 1 on 11/01/2017 by Imtiaz Soto MD [id number] / Description:This implant is MR Condition al and a member of a 1.5T Only MR Conditional System. Tenril Mri,V Lead-11/01/[address] [facility] [employer] [id number] / Implanted: Qty: 1 on 11/01/2017 by Imtiaz Soto MD [id number] / Description:This implant is MR Condition al and a member of a 1.5T Only MR Conditional System. Assurity Mri-11/01/[address] [employer] [id number] / Implanted: Qty: 1 on 11/01/2017 by Imtiaz Soto MD [id number] / Description:This device ids MR Condition al for a 1.5T Scanner Only. documented as of this encounter Results Not on filedocumented in this encounter Visit Diagnoses Diagnosis Non-cardiac chest pain - Primary Other chest pain Inappropriate sinus tachycardia Other specified cardiac dysrhythmias Palpitations Sinus tachycardia Other specified cardiac dysrhythmias Essential hypertension Unspecified essential hypertension PAF (paroxysmal atrial fibrillation) Atrial fibrillation Dizzy spells Dizziness and giddiness Syncope, unspecified syncope type documented in this encounter Insurance Payer Benefit Plan / Subscriber ID Effective Phone Address T ype Group Dates LYNDSEY SOLORIO [id number] 2011-Kobe [address] [place] [facility] [place] [address] MANAGED MEDICAID [place], [place] documented as of this encounter
--- OUTSIDE RECORDS SUMMARY | 2020-10-08 11:18 | XMS REPORT | Summary of Care ---
:1980 Author Organization [facility] Address [address] [place] [address] Care Team Providers Name Role Phone Joshua Reyes Lila Insurance Hmo Yoni Mora MD Primary Care Provider Reason for Visit Reason Comments Follow-up Encounter Details Date Type Department Care Team Description 08/24/2020 Office Visit [facility] Navi Hines Non-cardiac c hest pain (Primary Dx); Cardiology- Nydia Merida MD Inappropriate sinus tachycardia; [address]pit[address]; Drive, [address] DEO 106 Sinus tachycardia; [place], [place] Essential hyper tension; [phone] PAF (paroxysmal atrial fibrillation); [phone] Dizzy spells; [phone] Syncope, unspec ified syncope type (Fax) Allergies [...] Added automatically from request for yara arslan [id number] Abdominal pain, unspecified abdominal location 018 Overview: Added automatically from request for yara arslan [id number] Nausea and vomiting, intractability of vomiting not sp ecified, unspecified 07/13/2018 vomiting type Overview: Added automatically from request for yara arslan [id number] Non-cardiac chest pain 04/27/2018 Essential hypertension 04/27/2018 Pacemaker 04/27/2018 PAF (paroxysmal atrial fibrillation) 04/27/2018 History of cardiac pacemaker in situ 08/23/2017 Tachycardia, unspecified 06/22/2017 Elevated liver enzymes 07/23/2014 Pseudoseizure 04/15/2014 Left sided numbness 03/22/2014 Prediabetes 09/24/2013 Loss of weight 09/24/2013 Hypothyroidism 09/24/2013 Overview: ICD10 Diagnosis Term Aviation Neuropsychologist Utility Hypoglycemia 08/21/2013 Overview: ICD10 Diagnosis Term Aviation Neuropsychologist Utility documented as of this encounter (statuses [...] with No / Unsure 08/24/2020 10:39 AM INTERNAL COMMUNICATIONS SPECIALIST someone who was confirmed or suspected to have Coronavirus / COVID-19? documented as of this encounter Last Filed Vital Signs Vital Sign Reading Time Taken Comments Blood Pressure 122/84 08/24/2020 10:46 AM INTERNAL COMMUNICATIONS SPECIALIST Pulse 125 08/24/2020 10:46 AM INTERNAL COMMUNICATIONS SPECIALIST Temperature - - Respiratory Rate - - Oxygen Saturation 97% 08/24/2020 10:46 AM INTERNAL COMMUNICATIONS SPECIALIST Inhaled Oxygen Concentration - - Weight 56.6 kg (124 lb 12.8 oz) 08/24/2020 10:46 AM INTERNAL COMMUNICATIONS SPECIALIST Height 149.9 cm (4' 11") 08/24/2020 10:46 AM INTERNAL COMMUNICATIONS SPECIALIST Body Mass Index 25.21 08/24/2020 10:46 AM INTERNAL COMMUNICATIONS SPECIALIST documented in this encounter Progress Notes Navi Hines MD - 08/24/2020 11:00 AM CST [facility] Cardiology Consult Note Patient: Jenni Draper [...] last OV, she was admitted initially to [facility] for possible stroke/seizures 04/2020. Then 07/2020 for syncope. Since then she was admitted recently in [facility] for chest discomfort/dizzy spells. The ER records [...] monitor. Admitted for 10/2019 was admitted to [facility] for syncope, cp, sob, palpitations. She was given IV digoxin for abnormal heart rhythm labelled as "VT" and developed digoxin toxicity. Transferred to [facility]. Coreg/dig was DC. Toprol XL was [...] and the entire system was removed in [facility]. She had IV antibiotics with [...] 2017 was reviewed. Patient was referred to [facility] on September 05, 2017 for evaluation [...] INSERTION 10/2017 [facility]; Dr Imtiaz Soto, [facility], inserted twice Family History Problem Relation Age [...] file Gets together: Not on file Attends jewish service: Not on file Active member of [...] reports having a digoxin level done today [facility] ordered by her PCP. Following [...] per old records: On Eliquis. 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 Dyslipiedemia: on lipitor 10 mg daily. [...] in the answers given. We reviewed the [employer] recommendations for reduction of overall [...] feel free to call our office at [phone]. I would be happy to be of further assistance for Jenni Draper wellbeing. Kevin Hines MD [place], Division of Cardiology [facility] RNAL COMMUNICATIONS SPECIALIST documented in this encounter Plan of Treatment Date Type Specialty Care Team Description 09/01/2020 Laboratory Only Cardiology Pacemaker/Icd, Adc 09/09/2020 Office Visit Cardiology Gucci Joshi MD [address] [place], [place] [address] 10/02/2020 Office Visit Cardiology Navi Hines MD [address] [place] [phone] 11/05/2020 Office Visit Pulmonary Disease Tucker Guy, [facility] [place] [phone] 07/21/2021 Office Visit Pulmonary Disease Heena Bailey MD [address] [address] Health Maintenance Due Date Last Done Comments VARICELLA VACCINES (1 of 2 - 2-dose 1982 childhood series) DTaP,Tdap,and Td Vaccines (1 - Tdap) 2000 PAP SMEAR 06/21/2007 06/21/2004 PNEUMOCOCCAL 0-64 YEARS COMBINED SERIES (3 06/23/201806/23, 11/16/2015 of 3 - PCV13) INFLUENZA VACCINE (#1) 2020 11/16/2015 Depression Screening 12/09/2020 12/10/2019 documented as of this encounter Implants Implanted Type Area Endo Tech Device Shelf Expiration Model / Identifier Date Serial / Lot Tendril Mri,A Lead-11/01/[address] [facility] [employer] RA- [id number] / Implanted: Qty: 1 on 11/01/2017 by Imtiaz Soto MD [id number] / Description:This implant is MR Condition al and a member of a 1.5T Only MR Conditional System. Tenril Mri,V Lead-11/01/[address] [facility] [employer] [id number] / Implanted: Qty: 1 on 11/01/2017 by Imtiaz Soto MD [id number] / Description:This implant is MR Condition al and a member of a 1.5T Only MR Conditional System. Assurity Mri-11/01/[address] [facility] [id number] / Implanted: Qty: 1 on 11/01/2017 by Imtiaz Soto MD [id number] / Description:This device ids MR Condition al [...] Address T ype Group Dates LYNDSEY SOLORIO [id number] 2011-[employer] [address] [employer] [facility] [place] [address] MANAGED MEDICAID [place], [place]ICA[place] documented as of this encounter
--- OUTSIDE RECORDS SUMMARY | 2020-10-08 11:19 | XMS REPORT | Summary of Care ---
:1980 Author Organization [facility] [employer] Address [address] [place] [address] Care Team Providers Name Role Phone Joshua Reyes Lila Insurance Hmo Yoni Mora MD Primary Care Provider Reason for Visit Reason Comments Notification Encounter Details Date Type Department Care Team Description 08/24/2020 Telephone [facility] Cardiology- Navi Hines MD Notification [place] [address] [place] [address] [address] [place] [address] [place] [address] [phone] Allergies Active Allergy Reactions Severity Noted Date [...] as of this encounter (statuses as of 08/31/2020) Medications Medication Sig Dispensed Refills Start Date [...] by mouth 0 Active capsule at bedtime. esomeprazole (NEXIUM) 20 mg Take 20 mg by mouth 2 0 Active capsule (two) times daily before breakfast and dinner. digoxin 125 mcg (0.125 mg) Take 1 tablet by 90 tablet 1 2019 Active tabletIndications: History of mouth daily. DVT (deep vein thrombosis), Inappropriate sinus tachycardia documented as of this encounter (statuses as of 08/31/2020) Active Problems Problem Noted Date Inappropriate sinus [...] Added automatically from request for yara arslan [id number] Abdominal pain, unspecified abdominal location 018 Overview: Added automatically from request for yara arslan [id number] Nausea and vomiting, intractability of vomiting not sp ecified, unspecified 07/13/2018 vomiting type Overview: Added automatically from request for yara arslan [id number] Non-cardiac chest pain 04/27/2018 Essential hypertension 04/27/2018 Pacemaker 04/27/2018 PAF (paroxysmal atrial fibrillation) 04/27/2018 History of cardiac pacemaker in situ 08/23/2017 Tachycardia, unspecified 06/22/2017 Elevated liver enzymes 07/23/2014 Pseudoseizure 04/15/2014 Left sided numbness 03/22/2014 Prediabetes 09/24/2013 Loss of weight 09/24/2013 Hypothyroidism 09/24/2013 Overview: ICD10 Diagnosis Term Networking Specialist Utility Hypoglycemia 08/21/2013 Overview: ICD10 Diagnosis Term Networking Specialist Utility documented as of this encounter (statuses as of 08/31/2020) Resolved Problems Problem Noted Date Resolved Date Stroke-like symptoms 05/10/2020 05/12/2020 Stroke 06/15/2019 05/12/2020 Metabolic syndrome X 07/23/2014 07/23/2014 documented as of this encounter (statuses as of 08/31/2020) Immunizations Name Administration Dates Next Due Influenza [...] with No / Unsure 08/24/2020 10:39 AM AUTOMOTIVE PARTS SALESPERSON someone who was confirmed or suspected to have Coronavirus / COVID-19? documented as of this encounter Last Filed Vital Signs Not on filedocumented in this encounter Miscellaneous Notes Telephone Encounter - Navi Hines MD - 08/31/2020 9:31 AM AUTOMOTIVE PARTS SALESPERSON From the cardiac standpoint patient may undergo the EGD and Colonoscopy under moderate risk category. Patient may hold off the Eliquis at least 2-3 days before the procedure and to be restarted back as soon as possible at discretion of the procedure performing physician once adequate hemostasis is obtained. Please fax the my last OV, ECG, Echo reports. MOTIVE PARTS SALESPERSON Telephone Encounter - Hector Clarke - 08/25/2020 9:33 AM CSTPatient calling back, patient states she is having stomach pain and is needing to get this test done. Please advise. elephone Encounter - Hector Clarke - 08/24/2020 3:22 PM AUTOMOTIVE PARTS SALESPERSON Patient calling to notify that she had an appointment with her GI doctor today. Patient's GI doctor advised her to get a Colonoscopy and EDG procedure done. Patient requesting a clearance for these procedures. Patient also notifying she has been off the Eliquis x1 month due to her having dental work done. documented in this encounter Plan of Treatment Date Type Specialty Care Team Description 09/09/2020 Office Visit Cardiology Gucci Joshi MD [address] [place] [address] 10/02/2020 Office Visit Cardiology Navi Hines MD [address] [phone] 11/05/2020 Office Visit Pulmonary Disease Delores Guyjavierdonnie, [address] [place] [phone] 07/21/2021 Office Visit Pulmonary Disease Heena Bailey MD [address] [address] Health Maintenance Due Date Last Done Comments VARICELLA VACCINES (1 of 2 - 2-dose 1982 childhood series) DTaP,Tdap,and Td Vaccines (1 - Tdap) 2000 PAP SMEAR 06/21/2007 06/21/2004 PNEUMOCOCCAL 0-64 YEARS COMBINED SERIES (3 06/23/201806/23, 11/16/2015 of 3 - PCV13) INFLUENZA VACCINE (#1) 2020 11/16/2015 Depression Screening 12/09/2020 12/10/2019 documented as of this encounter Implants Implanted Type Area Engineer Assistant Device Shelf Expiration Model / Identifier Date Serial / Lot Tendril Mri,A Lead-11/01/[address] [facility] RA- [id number] / Implanted: Qty: 1 on 11/01/2017 by Imtiaz Soto MD [id number] / Description:This implant is MR Condition al and a member of a 1.5T Only MR Conditional System. Tenril Mri,V Lead-11/01/[address] [facility] [id number] / Implanted: Qty: 1 on 11/01/2017 by Imtiaz Soto MD [id number] / Description:This implant is MR Condition al and a member of a 1.5T Only MR Conditional System. Assurity Mri-11/01/[address] [facility] [id number] / Implanted: Qty: 1 on 11/01/2017 by Imtiaz Soto MD [id number] / Description:This device ids MR Condition al for a 1.5T Scanner Only. documented as of this encounter Results Not on filedocumented in this encounter Insurance Payer Benefit Plan / Subscriber ID Effective Phone Address T [facility] Group Dates LYNDSEY SOLORIO [id number] 2011-[employer] [address] [employer] [facility] [place] [id number] MANAGED MEDICAID [place] documented as of this encounter
--- OUTSIDE RECORDS SUMMARY | 2020-10-08 11:19 | XMS REPORT | Summary of Care ---
:1980 Author Organization [facility] [employer] Address [address] [place] [address] Care Team Providers Name Role Phone Joshua Reyes Lila Insurance Hmo Yoni Mora MD Primary Care Provider Reason for Visit Reason Comments Notification Encounter Details Date Type Department Care Team Description 08/24/2020 Telephone [facility] Cardiology- Navi Hines MD Notification [place] [address] [place] [address] [address] [place] [address] [place] [address] [phone] Allergies Active Allergy Reactions Severity Noted Date [...] Added automatically from request for yara arslan [id number] Abdominal pain, unspecified abdominal location 018 Overview: Added automatically from request for yara arslan [id number] Nausea and vomiting, intractability of vomiting not sp ecified, unspecified 07/13/2018 vomiting type Overview: Added automatically from request for yara arslan [id number] Non-cardiac chest pain 04/27/2018 Essential hypertension 04/27/2018 Pacemaker 04/27/2018 PAF (paroxysmal atrial fibrillation) 04/27/2018 History of cardiac pacemaker in situ 08/23/2017 Tachycardia, unspecified 06/22/2017 Elevated liver enzymes 07/23/2014 Pseudoseizure 04/15/2014 Left sided numbness 03/22/2014 Prediabetes 09/24/2013 Loss of weight 09/24/2013 Hypothyroidism 09/24/2013 Overview: ICD10 Diagnosis Term Charge Aide Utility Hypoglycemia 08/21/2013 Overview: ICD10 Diagnosis Term Charge Aide Utility documented as of this encounter (statuses [...] with No / Unsure 08/24/2020 10:39 AM MOLYBDENUM STEAMER OPERATOR someone who was confirmed or suspected to have Coronavirus / COVID-19? documented as of this encounter Last Filed Vital Signs Not on filedocumented in this encounter Miscellaneous Notes Telephone Encounter - Navi Hines MD - 08/31/2020 9:31 AM MOLYBDENUM STEAMER OPERATOR From the cardiac standpoint patient may undergo the EGD and Colonoscopy under moderate risk category. Patient may hold off the Eliquis at least 3-5 days before the procedure and to be restarted back as soon as possible at discretion of the procedure performing physician once adequate hemostasis is obtained. Please fax the my last OV, ECG, Echo reports. BDENUM STEAMER OPERATOR Telephone Encounter - Hector Clarke - 08/25/2020 9:33 AM CSTPatient calling back, patient states she is having stomach pain and is needing to get this test done. Please advise. elephone Encounter - Hector Clarke - 08/24/2020 3:22 PM MOLYBDENUM STEAMER OPERATOR Patient calling to notify that she had [...] Cardiology Gucci Joshi MD [address] [place] [address] 10/02/2020 Office Visit Cardiology Navi Hines MD [address] [phone] 11/05/2020 Office Visit Pulmonary Disease Delores Guyjavierdonnie, [address] [place] [phone] 07/21/2021 Office Visit Pulmonary Disease Heena Bailey MD [address] [address] Health Maintenance Due Date Last Done Comments VARICELLA VACCINES (1 of 2 - 2-dose 1982 childhood series) DTaP,Tdap,and Td Vaccines (1 - Tdap) 2000 PAP SMEAR 06/21/2007 06/21/2004 PNEUMOCOCCAL 0-64 YEARS COMBINED SERIES (3 06/23/201806/23, 11/16/2015 of 3 - PCV13) INFLUENZA VACCINE (#1) 2020 11/16/2015 Depression Screening 12/09/2020 12/10/2019 documented as of this encounter Implants Implanted Type Area Electrical Systems Engineer Device Shelf Expiration Model / Identifier Date Serial / Lot Tendril Mri,A Lead-11/01/[address] [facility] RA- [id number] / Implanted: Qty: 1 on 11/01/2017 by Imtiaz Soto MD [id number] / Description:This implant is MR Condition al and a member of a 1.5T Only MR Conditional System. Tenril Mri,V Lead-11/01/[address] [facility] [id number] / Implanted: Qty: 1 on 11/01/2017 by Imtiaz Soto MD [id number] / Description:This implant is MR Condition al and a member of a 1.5T Only MR Conditional System. Assurity Mri-11/01/[address] [facility] [id number] / Implanted: Qty: 1 on 11/01/2017 by Imtiaz Soto MD [id number] / Description:This device ids MR Condition al for a 1.5T Scanner Only. documented as of this encounter Results Not on filedocumented in this encounter Insurance Payer Benefit Plan / Subscriber ID Effective Phone Address T [facility] Group Dates LYNDSEY SOLORIO [id number] 2011-[employer] [address] [employer] [facility] [place] [address] MANAG[place] MEDICAID [place] documented as of this encounter
--- OUTSIDE RECORDS SUMMARY | 2020-10-08 11:20 | XMS REPORT | Summary of Care ---
:1980 Author Organization [facility] [employer] Address [address] [place] [address] Care Team Providers Name Role Phone Joshua Reyes Lila Insurance Hmo Yoni Mora MD Primary Care Provider Reason for Visit Reason Comments Appointment Encounter Details Date Type Department Care Team Description 08/27/[address] [facility] Cardiology- Navi Hines MD Appointment [address] [facility], [address] [facility] [address] [place] [address] [place] [address] [phone] Allergies Active Allergy Reactions Severity Noted Date [...] Added automatically from request for yara arslan [id number] Abdominal pain, unspecified abdominal location 018 Overview: Added automatically from request for yara arslan [id number] Nausea and vomiting, intractability of vomiting not sp ecified, unspecified 07/13/2018 vomiting type Overview: Added automatically from request for yara arslan [id number] Non-cardiac chest pain 04/27/2018 Essential hypertension 04/27/2018 Pacemaker 04/27/2018 PAF (paroxysmal atrial fibrillation) 04/27/2018 History of cardiac pacemaker in situ 08/23/2017 Tachycardia, unspecified 06/22/2017 Elevated liver enzymes 07/23/2014 Pseudoseizure 04/15/2014 Left sided numbness 03/22/2014 Prediabetes 09/24/2013 Loss of weight 09/24/2013 Hypothyroidism 09/24/2013 Overview: ICD10 Diagnosis Term Cleaner Laboratory Equipment Utility Hypoglycemia 08/21/2013 Overview: ICD10 Diagnosis Term Cleaner Laboratory Equipment Utility documented as of this encounter (statuses [...] with No / Unsure 08/24/2020 10:39 AM FIXED WING AIRCRAFT CREW CHIEF someone who was confirmed or suspected to have Coronavirus / COVID-19? documented as of this encounter Last Filed Vital Signs Not on filedocumented in this encounter Miscellaneous Notes Telephone Encounter - Mayi Chauhan RN - 08/31/2020 3:51 PM CSTFaxed cardiac clearance paperwork to Dr. Restrepo office [phone] and informed patient. elephone Encounter - Hector Clarke - 08/31/2020 10:35 AM CSTPatient calling in regards to below encounter elephone Encounter - Hector Clarke - 08/28/2020 9:16 AM CSTPatient calling in regards to below encounter. Patient would also like an update on her procedure clearance. Please advise. elephone Encounter - Hector Clarke - 08/27/2020 1:33 PM CSTPatient calling in regards to her appointment 09/01 for a device check. Patient requesting a call to know if her appointment is still needed. Patient advised that she was going to come in to download inf ormation from her device. Patient states it was already done at a previous visit. Please call and advise. documented in this encounter Plan of Treatment Date Type Specialty Care Team Description 09/09/2020 Office Visit Cardiology Gucci Joshi MD [address] [facility] [place], [place] [address] 10/02/2020 Office Visit Cardiology Navi Hines MD [address] [place] [address] [place] [phone] 11/05/2020 Office Visit Pulmonary Disease Tucker Guy, [address] [place] [phone] 07/21/2021 Office Visit Pulmonary Disease Heena Bailey MD [address] [place] [phone] Health Maintenance Due Date Last Done Comments VARICELLA VACCINES (1 of 2 - 2-dose 1982 childhood series) DTaP,Tdap,and Td Vaccines (1 - Tdap) 2000 PAP SMEAR 06/21/2007 06/21/2004 PNEUMOCOCCAL 0-64 YEARS COMBINED SERIES (3 06/23/201806/23, 11/16/2015 of 3 - PCV13) INFLUENZA VACCINE (#1) 2020 11/16/2015 Depression Screening 12/09/2020 12/10/2019 documented as of this encounter Implants Implanted Type Area Bee Robber Device Shelf Expiration Model / Identifier Date Serial / Lot Tendril Mri,A Lead-11/01/[address] [facility] [facility] RA- [id number] / Implanted: Qty: 1 on 11/01/2017 by Imtiaz Soto MD [id number] / Description:This implant is MR Condition al and a member of a 1.5T Only MR Conditional System. Tenril Mri,V Lead-11/01/[address] [employer] [id number] / Implanted: Qty: 1 on 11/01/2017 by Imtiaz Soto MD [id number] / Description:This implant is MR Condition al and a member of a 1.5T Only MR Conditional System. Assurity Mri-11/01/[address] [employer] [id number] / Implanted: Qty: 1 on 11/01/2017 by Imtiaz Soto MD [id number] / Description:This device ids MR Condition al for a 1.5T Scanner Only. documented as of this encounter Results Not on filedocumented in this encounter Insurance Payer Benefit Plan / Subscriber ID Effective Phone Address T [facility] Group Dates LYNDSEY SOLORIO [id number] 2011-Kobe [place] [place] [facility] [place] [address] MANAGED MEDICAID [place] documented as of this encounter
--- OUTSIDE RECORDS SUMMARY | 2020-10-08 11:20 | XMS REPORT | Summary of Care ---
:1980 Author Organization [facility] Address [address] [place] [address] Care Team Providers Name Role Phone ReyesJoshua viramontes Lila Insurance Hmo Yoni Mora MD Primary Care Provider Encounter Details Date Type Department Care Team Description 08/28/2020 Orders Only [facility] Doctor Unassigned, No [address] [facility] [place] [address] [address] [phone] Allergies Active Allergy Reactions Severity Noted Date [...] as of this encounter (statuses as of 09/07/2020) Medications Medication Sig Dispensed Refills Start Date [...] as of this encounter (statuses as of 09/07/2020) Active Problems Problem Noted Date Inappropriate sinus [...] Added automatically from request for yara mcdaniels [id number] Abdominal pain, unspecified abdominal location 018 Overview: Added automatically from request for yara mcdaniels [id number] Nausea and vomiting, intractability of vomiting not sp ecified, unspecified 07/13/2018 vomiting type Overview: Added automatically from request for yara mcdaniels [id number] Non-cardiac chest pain 04/27/2018 Essential hypertension 04/27/2018 Pacemaker 04/27/2018 PAF (paroxysmal atrial fibrillation) 04/27/2018 History of cardiac pacemaker in situ 08/23/2017 Tachycardia, unspecified 06/22/2017 Elevated liver enzymes 07/23/2014 Pseudoseizure 04/15/2014 Left sided numbness 03/22/2014 Prediabetes 09/24/2013 Loss of weight 09/24/2013 Hypothyroidism 09/24/2013 Overview: ICD10 Diagnosis Term Shooter'S Helper Utility Hypoglycemia 08/21/2013 Overview: ICD10 Diagnosis Term Shooter'S Helper Utility documented as of this encounter (statuses as of 09/07/2020) Resolved Problems Problem Noted Date Resolved Date Stroke-like symptoms 05/10/2020 05/12/2020 Stroke 06/15/2019 05/12/2020 Metabolic syndrome X 07/23/2014 07/23/2014 documented as of this encounter (statuses as of 09/07/2020) Immunizations Name Administration Dates Next Due Influenza [...] with No / Unsure 08/24/2020 10:39 AM REGULATORY INTERN someone who was confirmed or suspected to have Coronavirus / COVID-19? documented as of this encounter Last Filed Vital Signs Not on filedocumented in this encounter Plan of Treatment Date Type Specialty Care Team Description 10/02/2020 Office Visit Cardiology Navi Hines MD [address] [place] [place] [address] [phone] 11/05/2020 Office Visit Pulmonary Disease Tucker Guy, [address] [place] [phone] 07/21/2021 Office Visit Pulmonary Disease Heena Bailey MD [address] 77 [address] Health Maintenance Due Date Last Done Comments VARICELLA VACCINES (1 of 2 - 2-dose 1982 childhood series) DTaP,Tdap,and Td Vaccines (1 - Tdap) 2000 PAP SMEAR 06/21/2007 06/21/2004 PNEUMOCOCCAL 0-64 YEARS COMBINED SERIES (3 06/23/201806/23, 11/16/2015 of 3 - PCV13) INFLUENZA VACCINE (#1) 2020 11/16/2015 Depression Screening 12/09/2020 12/10/2019 documented as of this encounter Implants Implanted Type Area Cargo Worker Device Shelf Expiration Model / Identifier Date Serial / Lot Tendril Mri,A Lead-11/01/[address] [employer] RA- [id number] / Implanted: Qty: 1 on 11/01/2017 by Imtiaz Soto MD [id number] / Description:This implant is MR Condition al and a member of a 1.5T Only MR Conditional System. Tenril Mri,V Lead-11/01/[address] [employer] [id number] / Implanted: Qty: 1 on 11/01/2017 by Imtiaz Soto MD [id number] / Description:This implant is MR Condition al and a member of a 1.5T Only MR Conditional System. Assurity Mri-11/01/[address] [employer] [id number] / Implanted: Qty: 1 on 11/01/2017 by Imtiaz Soto MD [id number] / Description:This device ids MR Condition al for a 1.5T Scanner Only. documented as of this encounter Procedures Procedure Name Priority Date/Time Associated Diagnosis Comme nts EXTERNAL PROVIDER - ADC Routine 08/28/2020 12:01 AM CARDIOLOGY REGULATORY INTERN documented in this encounter Results Not on filedocumented in this encounter Insurance Payer Benefit Plan / Subscriber ID Effective Phone Address [facility] Group Dates YLNDSEY SOLORIO [id number] 2011-Kobe [place] [address] MANAGED MEDICAID [place] documented as of this encounter
--- OUTSIDE RECORDS SUMMARY | 2020-10-08 11:20 | XMS REPORT | Summary of Care ---
:1980 Author Organization [facility] Address [address] [place] [address] Care Team Providers Name Role Phone Joshua Reyes Lila Insurance Hmo Yoni Mora MD Primary Care Provider Reason for Visit Reason Comments Follow-up Encounter Details Date Type Department Care Team Description 08/24/2020 Office Visit [facility] Navi Hines Non-cardiac c hest pain (Primary Dx); Cardiology- Nydia Merida MD Inappropriate sinus tachycardia; [address]; [address], [address] Sinus tachycardia; [place], [place] Essential hyper tension; [phone] PAF (paroxysmal atrial fibrillation); [phone] Dizzy spells; [phone] Syncope, unspec ified syncope type (Fax) Allergies [...] Added automatically from request for yara arslan [id number] Abdominal pain, unspecified abdominal location 018 Overview: Added automatically from request for yara arslan [id number] Nausea and vomiting, intractability of vomiting not sp ecified, unspecified 07/13/2018 vomiting type Overview: Added automatically from request for yara arslan [id number] Non-cardiac chest pain 04/27/2018 Essential hypertension 04/27/2018 Pacemaker 04/27/2018 PAF (paroxysmal atrial fibrillation) 04/27/2018 History of cardiac pacemaker in situ 08/23/2017 Tachycardia, unspecified 06/22/2017 Elevated liver enzymes 07/23/2014 Pseudoseizure 04/15/2014 Left sided numbness 03/22/2014 Prediabetes 09/24/2013 Loss of weight 09/24/2013 Hypothyroidism 09/24/2013 Overview: ICD10 Diagnosis Term Site Technician Utility Hypoglycemia 08/21/2013 Overview: ICD10 Diagnosis Term Site Technician Utility documented as of this encounter (statuses [...] with No / Unsure 08/24/2020 10:39 AM INFORMATICS EDUCATOR someone who was confirmed or suspected to have Coronavirus / COVID-19? documented as of this encounter Last Filed Vital Signs Vital Sign Reading Time Taken Comments Blood Pressure 122/84 08/24/2020 10:46 AM INFORMATICS EDUCATOR Pulse 125 08/24/2020 10:46 AM INFORMATICS EDUCATOR Temperature - - Respiratory Rate - - Oxygen Saturation 97% 08/24/2020 10:46 AM INFORMATICS EDUCATOR Inhaled Oxygen Concentration - - Weight 56.6 kg (124 lb 12.8 oz) 08/24/2020 10:46 AM INFORMATICS EDUCATOR Height 149.9 cm (4' 11") 08/24/2020 10:46 AM INFORMATICS EDUCATOR Body Mass Index 25.21 08/24/2020 10:46 AM INFORMATICS EDUCATOR documented in this encounter Progress Notes Navi Hines MD - 08/24/2020 11:00 AM CST [facility] Cardiology Consult Note Patient: Jenni Draper Date [...] last OV, she was admitted initially to [facility] for possible stroke/seizures 04/2020. Then 07/2020 for syncope. Since then she was admitted recently in [facility] for chest discomfort/dizzy spells. The ER records [...] monitor. Admitted for 10/2019 was admitted to [facility] for syncope, cp, sob, palpitations. She was given IV digoxin for abnormal heart rhythm labelled as "VT" and developed digoxin toxicity. Transferred to [facility]. Coreg/dig was DC. Toprol XL was [...] and the entire system was removed in [facility]. She had IV antibiotics with IV [...] 2017 was reviewed. Patient was referred to [facility] on September 05, 2017 for [...] file Gets together: Not on file Attends orthodoxy service: Not on file Active member of [...] reports having a digoxin level done today [facility] ordered by her PCP. Following up with [...] per old records: On Eliquis. 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 Dyslipiedemia: on lipitor 10 mg daily. She [...] in the answers given. We reviewed the [place] [employer] recommendations for reduction of overall [...] feel free to call our office at [phone]. I would be happy to be of further assistance for Jenni Draper wellbeing. Kevin Hines MD Consulting It Architect, Division of Cardiology [facility] Addendum 08/31/2020 Labs 08/24/2020 reviewed CBC/CMP within acceptable limits from cardiac stand point. Dig level: < 0.4 ALP: 126 Kevin Hines MD Consulting It Architect, Division of Cardiology [facility] RMATICS EDUCATOR documented in this encounter Plan of Treatment Date Type Specialty Care Team Description 09/09/2020 Office Visit Cardiology Gucci Joshi MD [address] [place] [phone] 10/02/2020 Office Visit Cardiology Navi Hines MD [address] [facility] [place] [address] [phone] 11/05/2020 Office Visit Pulmonary Disease Tucker Guy DO [address] [place] [address] 07/21/2021 Office Visit Pulmonary Disease Heena Bailey MD [address] [phone] Health Maintenance Due Date Last Done Comments VARICELLA VACCINES (1 of 2 - 2-dose 1982 childhood series) DTaP,Tdap,and Td Vaccines (1 - Tdap) 2000 PAP SMEAR 06/21/2007 06/21/2004 PNEUMOCOCCAL 0-64 YEARS COMBINED SERIES (3 06/23/201806/23, 11/16/2015 of 3 - PCV13) INFLUENZA VACCINE (#1) 2020 11/16/2015 Depression Screening 12/09/2020 12/10/2019 documented as of this encounter Implants Implanted Type Area Manager Mortgage Device Shelf Expiration Model / Identifier Date Serial / Lot Tendril Mri,A Lead-11/01/[address] [employer] RA- [id number] / Implanted: Qty: 1 on 11/01/2017 by Imtiaz Soto MD [id number] / Description:This implant is MR Condition al and a member of a 1.5T Only MR Conditional System. Tenril Mri,V Lead-11/01/[address] [employer] [id number] / Implanted: Qty: 1 on 11/01/2017 by Imtiaz Soto MD [id number] / Description:This implant is MR Condition al and a member of a 1.5T Only MR Conditional System. Assurity Mri-11/01/[address] [employer] [id number] / Implanted: Qty: 1 on 11/01/2017 by Imtiaz Soto MD [id number] / Description:This device ids MR Condition al [...] Address T ype Group Dates SOLORIO SOLORIO [id number] 2011-Kobe Amaro [address] [employer] [place] [address] MANAGED MEDICAID [place] documented as of this encounter
--- OUTSIDE RECORDS SUMMARY | 2020-10-08 11:21 | XMS REPORT | Summary of Care ---
:1980 Author Organization [facility] [employer] Address [address] [place] [address] Care Team Providers Name Role Phone Reyes, Joshua Sharp Insurance Hmo Yoni Mora MD Primary Care Provider Reason for Visit Reason Comments Rx Concern/Question Encounter Details Date Type Department Care Team Description 09/30/2020 Telephone [facility] [employer] ADC Vishnu Valiente DO Rx Concern/Question Pulmonary Clinic [address] , [address] [place] [phone] [phone] Allergies Active Allergy Reactions Severity Noted Date [...] as of this encounter (statuses as of 09/30/2020) Medications Medication Sig Dispensed Refills Start Date [...] DVT (deep vein thrombosis), Inappropriate sinus tachycardia albuterol 90 mcg/actuation Inhale 2 Puffs every 8.5 g 11 Active inhaler 6 (six) hours as needed for Wheezing or Shortness of Breath. documented as of this encounter (statuses as of 09/30/2020) Active Problems Problem Noted Date Inappropriate sinus [...] Added automatically from request for yara arslan [id number] Abdominal pain, unspecified abdominal location 018 Overview: Added automatically from request for yara arslan [id number] Nausea and vomiting, intractability of vomiting not sp ecified, unspecified 07/13/2018 vomiting type Overview: Added automatically from request for yara arslan [id number] Non-cardiac chest pain 04/27/2018 Essential hypertension 04/27/2018 Pacemaker 04/27/2018 PAF (paroxysmal atrial fibrillation) 04/27/2018 History of cardiac pacemaker in situ 08/23/2017 Tachycardia, unspecified 06/22/2017 Elevated liver enzymes 07/23/2014 Pseudoseizure 04/15/2014 Left sided numbness 03/22/2014 Prediabetes 09/24/2013 Loss of weight 09/24/2013 Hypothyroidism 09/24/2013 Overview: ICD10 Diagnosis Term Fiber Design Engineer Utility Hypoglycemia 08/21/2013 Overview: ICD10 Diagnosis Term Fiber Design Engineer Utility documented as of this encounter (statuses as of 09/30/2020) Resolved Problems Problem Noted Date Resolved Date Stroke-like symptoms 05/10/2020 05/12/2020 Stroke 06/15/2019 05/12/2020 Metabolic syndrome X 07/23/2014 07/23/2014 documented as of this encounter (statuses as of 09/30/2020) Immunizations Name Administration Dates Next Due Influenza [...] this encounter Miscellaneous Notes Telephone Encounter - Paris Arnold RN - 09/30/2020 3:24 PM CST Received erx refill request for: Requested Prescriptions Signed Prescriptions Disp Refills albuterol 90 mcg/actuation inhaler 8.5 g 11 Sig: Inhale 2 Puffs every 6 (six) hours as needed for Wheezing or Shortness of Breath. Authorizing Provider: VISHNU VALIENTE Ordering User: PARIS ARNOLD Follow up scheduled for : 11.05.19 Last office visit: 07.16.20 Refilled approval sent to: [id number] [place] [address] [facility] [address] [facility] [phone] Refilled per Guidelines OMER SUCCESS INTERN Telephone Encounter - Hector Clarke - 09/30/2020 1:25 PM CSTPatient is requesting a refill on her pro air. Pt states her previous lending consultant is who prescribed her the medication. please advise. documented in this encounter Plan of Treatment Date Type Specialty Care Team Description 10/02/2020 Office Visit Cardiology Navi Hines MD [address] [place] [phone] 11/05/2020 Office Visit Pulmonary Disease Vishnu Valiente DO [facility] [place] [phone] 07/21/2021 Office Visit Pulmonary Disease Heena Bailey MD [address] [facility] [address] [address] [phone] Health Maintenance Due Date Last Done Comments VARICELLA VACCINES (1 of 2 - 2-dose 1982 childhood series) DTaP,Tdap,and Td Vaccines (1 - Tdap) 2000 PAP SMEAR 06/21/2007 06/21/2004 PNEUMOCOCCAL 0-64 YEARS COMBINED SERIES (3 06/23/201806/23, 11/16/2015 of 3 - PCV13) INFLUENZA VACCINE (#1) 2020 11/16/2015 Depression Screening 12/09/2020 12/10/2019 documented as of this encounter Implants Implanted Type Area Pipe Bending Machine Operator Device Shelf Expiration Model / Identifier Date Serial / Lot Tendril Mri,A Lead-11/01/[address] [employer] RA- [id number] / Implanted: Qty: 1 on 11/01/2017 by Imtiaz Soto MD [id number] / Description:This implant is MR Condition al and a member of a 1.5T Only MR Conditional System. Tenril Mri,V Lead-11/01/[address] [employer] [id number] / Implanted: Qty: 1 on 11/01/2017 by Imtiaz Soto MD [id number] / Description:This implant is MR Condition al and a member of a 1.5T Only MR Conditional System. Assurity Mri-11/01/[address] [employer] [id number] / Implanted: Qty: 1 on 11/01/2017 by Imtiaz Soto MD [id number] / Description:This device ids MR Condition al for a 1.5T Scanner Only. documented as of this encounter Results Not on filedocumented in this encounter Insurance Payer Benefit Plan / Subscriber ID Effective Phone Address T e Group Dates LYNDSEY SOLORIO [id number] 2011-Kobe Amaro [address] Medic [place] [facility] [place] [address] MANAGED MEDICAID [place] documented as of this encounter
--- OUTSIDE RECORDS SUMMARY | 2020-10-08 11:21 | XMS REPORT | Summary of Care ---
:1980 Author Organization [facility] [employer] Address [address] [place] [address] Care Team Providers Name Role Phone Joshua Reyes Lila Insurance Hmo Yoni Mora MD Primary Care Provider Reason for Visit Reason Comments Forms clearance letter Encounter Details Date Type Department Care Team Description 09/28/2020 Telephone [facility] Navi Hines Forms (nazia shell Cardiology- Nydia Merida MD letter) 146 [facility], [address] [facility] [address] [place] [phone] Allergies Active Allergy Reactions Severity Noted [...] as of this encounter (statuses as of 09/28/2020) Medications Medication Sig Dispensed Refills Start Date [...] as of this encounter (statuses as of 09/28/2020) Active Problems Problem Noted Date Inappropriate sinus [...] Added automatically from request for yara arslan [id number] Abdominal pain, unspecified abdominal location 018 Overview: Added automatically from request for yara arslan [id number] Nausea and vomiting, intractability of vomiting not sp ecified, unspecified 07/13/2018 vomiting type Overview: Added automatically from request for yara arslan [id number] Non-cardiac chest pain 04/27/2018 Essential hypertension 04/27/2018 Pacemaker 04/27/2018 PAF (paroxysmal atrial fibrillation) 04/27/2018 History of cardiac pacemaker in situ 08/23/2017 Tachycardia, unspecified 06/22/2017 Elevated liver enzymes 07/23/2014 Pseudoseizure 04/15/2014 Left sided numbness 03/22/2014 Prediabetes 09/24/2013 Loss of weight 09/24/2013 Hypothyroidism 09/24/2013 Overview: ICD10 Diagnosis Term Stacking Machine Operator Utility Hypoglycemia 08/21/2013 Overview: ICD10 Diagnosis Term Stacking Machine Operator Utility documented as of this encounter (statuses as of 09/28/2020) Resolved Problems Problem Noted Date Resolved Date Stroke-like symptoms 05/10/2020 05/12/2020 Stroke 06/15/2019 05/12/2020 Metabolic syndrome X 07/23/2014 07/23/2014 documented as of this encounter (statuses as of 09/28/2020) Immunizations Name Administration Dates Next Due Influenza [...] Telephone Encounter - Mayi Chauhan RN - 09/28/2020 1:[address] Restrepo office and advised them that we have sent it multiple times and it appears that some go through and their machine cuts off. Emailing forms to [email or web address] Encounter - Dione Hernandez - 09/28/2020 12:38 PM CSTJenni Rivera is a 40 year old female Patient is scheduled for GI procedure tomorrow 09/29/20 with Linus Westbrook at [facility] in [place]. They are still waiting on clearance note and records to be faxed to clinic where patient is having procedure tomorrow. States they need last OV, ECG, Echo reports sent with clearance letter to fax # [phone]. Thank you Linus Westbrook Clinic Number: [phone] [email or web address] signed by Dione Hernandez at 09/28/2020 12:41 PM CSTdocumented in this encounter Plan of Treatment Date Type Specialty Care Team Description 10/02/2020 Office Visit Cardiology Navi Hines MD [address] [place] [phone] 11/05/2020 Office Visit Pulmonary Disease Tucker Guy DO [address] [place] [address] [phone] 07/21/2021 Office Visit Pulmonary Disease Heena Bailey MD [address] [address] [phone] Health Maintenance Due Date Last Done Comments VARICELLA VACCINES (1 of 2 - 2-dose 1982 childhood series) DTaP,Tdap,and Td Vaccines (1 - Tdap) 2000 PAP SMEAR 06/21/2007 06/21/2004 PNEUMOCOCCAL 0-64 YEARS COMBINED SERIES (3 06/23/201806/23, 11/16/2015 of 3 - PCV13) INFLUENZA VACCINE (#1) 2020 11/16/2015 Depression Screening 12/09/2020 12/10/2019 documented as of this encounter Implants Implanted Type Area Urology Physician Device Shelf Expiration Model / Identifier Date Serial / Lot Tendril Mri,A Lead-11/01/[address] [employer] RA- [id number] / Implanted: Qty: 1 on 11/01/2017 by Imtiaz Soto MD [id number] / Description:This implant is MR Condition al and a member of a 1.5T Only MR Conditional System. Tenril Mri,V Lead-11/01/[address] [employer] [id number] / Implanted: Qty: 1 on 11/01/2017 by Imtiaz Soto MD [id number] / Description:This implant is MR Condition al and a member of a 1.5T Only MR Conditional System. Assurity Mri-11/01/[address] [employer] [id number] / Implanted: Qty: 1 on 11/01/2017 by Imtiaz Soto MD [id number] / Description:This device ids MR Condition al for a 1.5T Scanner Only. documented as of this encounter Results Not on filedocumented in this encounter Insurance Payer Benefit Plan / Subscriber ID Effective Phone Address T [facility] Group Dates LYNDSEY SOLORIO [id number] 2011-[place] [address] [place] [facility] [place] [address] MANAGED MEDICAID [place] documented as of this encounter
--- OUTSIDE RECORDS SUMMARY | 2020-10-08 11:21 | XMS REPORT | Summary of Care ---
:1980 Author Organization [facility] [place] Address [address] [place] [address] Care Team Providers Name Role Phone Reyes, Joshua Sharp Insurance Hmo Yoni Mora MD Primary Care Provider Reason for Visit Reason Comments Rx Concern/Question Encounter Details Date Type Department Care Team Description 09/30/2020 Telephone [facility] ADC Vishnu Valiente DO Rx Concern/Question Pulmonary Clinic [address] , [address] [place] [phone] Allergies Active Allergy Reactions Severity Noted Date [...] as of this encounter (statuses as of 10/02/2020) Medications Medication Sig Dispensed Refills Start Date [...] furoate-vilanteroL Inhale 1 Puff daily. 60 Each 07/16/2020 Active (BREO ELLIPTA) 200-25 mcg/dose DsDvIndications: [...] needed for Wheezing or Shortness of Breath. PROAIR HFA 90 mcg/actuation Inhale 2 Puffs every 8.5 g 11 0 10/02/2020 Active inhaler 6 (six) hours as needed for Wheezing or Shortness of Breath. documented as of this encounter (statuses as of 10/02/2020) Active Problems Problem Noted Date Inappropriate sinus [...] Added automatically from request for yara arslan [id number] Abdominal pain, unspecified abdominal location 018 Overview: Added automatically from request for yara arslan [id number] Nausea and vomiting, intractability of vomiting not sp ecified, unspecified 07/13/2018 vomiting type Overview: Added automatically from request for yara arslan [id number] Non-cardiac chest pain 04/27/2018 Essential hypertension 04/27/2018 Pacemaker 04/27/2018 PAF (paroxysmal atrial fibrillation) 04/27/2018 History of cardiac pacemaker in situ 08/23/2017 Tachycardia, unspecified 06/22/2017 Elevated liver enzymes 07/23/2014 Pseudoseizure 04/15/2014 Left sided numbness 03/22/2014 Prediabetes 09/24/2013 Loss of weight 09/24/2013 Hypothyroidism 09/24/2013 Overview: ICD10 Diagnosis Term Wardrobe Manager Utility Hypoglycemia 08/21/2013 Overview: ICD10 Diagnosis Term Wardrobe Manager Utility documented as of this encounter (statuses as of 10/02/2020) Resolved Problems Problem Noted Date Resolved Date Stroke-like symptoms 05/10/2020 05/12/2020 Stroke 06/15/2019 05/12/2020 Metabolic syndrome X 07/23/2014 07/23/2014 documented as of this encounter (statuses as of 10/02/2020) Immunizations Name Administration Dates Next Due Influenza High Dose 11/16/2015 Influenza Virus Vaccine 08/13/2020 Pneumococcal Polysaccharide, PPSV23 (PNEUMOVAX) 06/23/2017, 11/16/2015 documented [...] on filedocumented in this encounter Miscellaneous Notes Addendum Note - Cecilia Denney MA - 10/02/2020 9:55 AM HEALTH ASSOCIATE Addended by: CECILIA DENNEY on: 10/02/2020 09:55 AM Modules accepted: Orders elephone Encounter - Paris Arnold RN - 09/30/2020 [...] visit: 07.16.20 Refilled approval sent to: Pharmacy: [id number] - [place], [place] - [address] [facility] [address] [facility] [phone] Refilled per Guidelines TH ASSOCIATE Telephone Encounter - Hector Clarke - 09/30/2020 1:25 PM CSTPatient is requesting a refill on her pro air. Pt states her previous blueprinting machine operator is who prescribed her the medication. please advise. documented in this encounter Plan of Treatment Date Type Specialty Care Team Description 10/02/2020 Office Visit Cardiology Navi Hines MD [facility]3] [address] [phone] 11/05/2020 Office Visit Pulmonary Disease Delores [address] [phone] 07/21/2021 Office Visit Pulmonary Disease Heena Bailey MD [address] [address] Health Maintenance Due Date Last Done Comments VARICELLA VACCINES (1 of 2 - 2-dose 1982 childhood series) DTaP,Tdap,and Td Vaccines (1 - Tdap) 2000 PAP SMEAR 06/21/2007 06/21/2004 PNEUMOCOCCAL 0-64 YEARS COMBINED SERIES (3 06/23/201806/23, 11/16/2015 of 3 - PCV13) Depression Screening 10/02/2021 10/02/2020 INFLUENZA VACCINE Completed 08/13/2020, 11/16/2015 documented as of this encounter Implants Implanted Type Area Drying Machine Operator Device Shelf Expiration Model / Identifier Date Serial / Lot Tendril Mri,A Lead-11/01/[address] [facility] [employer] RA- [id number] / Implanted: Qty: 1 on 11/01/2017 by Imtiaz Soto MD [id number] / Description:This implant is MR Condition al and a member of a 1.5T Only MR Conditional System. Tenril Mri,V Lead-11/01/[address] [facility] [employer] [id number] / Implanted: Qty: 1 on 11/01/2017 by Imtiaz Soto MD [id number] / Description:This implant is MR Condition al and a member of a 1.5T Only MR Conditional System. Assurity Mri-11/01/[address] [employer] [id number] / Implanted: Qty: 1 on 11/01/2017 by Imtiaz Soto MD [id number] / Description:This device ids MR Condition al for a 1.5T Scanner Only. documented as of this encounter Results Not on filedocumented in this encounter Insurance Payer Benefit Plan / Subscriber ID Effective Phone Address T [facility] Group Dates LYNDSEY SOLORIO [id number] 2011-Kobe Amaro [address] Medic [facility] [place] [address] MANAGED MEDICAID [place] documented as of this encounter
--- OUTSIDE RECORDS SUMMARY | 2020-10-08 11:22 | XMS REPORT | Summary of Care ---
:1980 Author Organization [facility] [place] Address [address] [place] [address] Care Team Providers Name Role Phone ReyesJoshua viramontes Lila Insurance Hmo Yoni Mora MD Primary Care Provider Reason for Visit Reason Comments Follow-up 2mo Encounter Details Date Type Department Care Team Description 10/02/2020 Office Visit [facility] Navi Hines Inappropriate sinus tachycardia (Primary Dx); Cardiology- Nydia Merida MD Palpitations; [address] Sinus tachycardia; Drive, [address]O 106 Essential hypertension; [place], [place] History of DVT (deep vein thrombosis) [phone] Allergies Active Allergy Reactions Severity Noted [...] as of this encounter (statuses as of 10/05/2020) Medications Medication Sig Dispensed Refills Start Date [...] needed for Wheezing or Shortness of Breath. predniSONE 10 mg tablet Take 10 mg by mouth 0 Active every other day. documented as of this encounter (statuses as of 10/05/2020) Active Problems Problem Noted Date Inappropriate sinus [...] Added automatically from request for yara arslan [id number] Abdominal pain, unspecified abdominal location 018 Overview: Added automatically from request for yara arslan [id number] Nausea and vomiting, intractability of vomiting not sp ecified, unspecified 07/13/2018 vomiting type Overview: Added automatically from request for yara arslan [id number] Non-cardiac chest pain 04/27/2018 Essential hypertension 04/27/2018 Pacemaker 04/27/2018 PAF (paroxysmal atrial fibrillation) 04/27/2018 History of cardiac pacemaker in situ 08/23/2017 Tachycardia, unspecified 06/22/2017 Elevated liver enzymes 07/23/2014 Pseudoseizure 04/15/2014 Left sided numbness 03/22/2014 Prediabetes 09/24/2013 Loss of weight 09/24/2013 Hypothyroidism 09/24/2013 Overview: ICD10 Diagnosis Term Trestleman Utility Hypoglycemia 08/21/2013 Overview: ICD10 Diagnosis Term Trestleman Utility documented as of this encounter (statuses as of 10/05/2020) Resolved Problems Problem Noted Date Resolved Date Stroke-like symptoms 05/10/2020 05/12/2020 Stroke 06/15/2019 05/12/2020 Metabolic syndrome X 07/23/2014 07/23/2014 documented as of this encounter (statuses as of 10/05/2020) Immunizations Name Administration Dates Next Due Influenza [...] Sign Reading Time Taken Comments Blood Pressure 117/79 10/02/2020 9:46 AM PCU RN Pulse 87 10/02/2020 9:46 AM PCU RN Temperature - - Respiratory Rate 20 10/02/2020 9:46 AM PCU RN Oxygen Saturation 96% 10/02/2020 9:46 AM PCU RN Inhaled Oxygen Concentration - - Weight 57.8 kg (127 lb 5.1 oz) 10/02/2020 9:46 AM PCU RN Height 149.9 cm (4' 11") 10/02/2020 9:46 AM PCU RN Body Mass Index 25.72 10/02/2020 9:46 AM PCU RN documented in this encounter Progress Notes Navi Hines MD - 10/02/2020 10:00 AM CST [facility] Cardiology Consult Note Patient: Jenni Draper Date of : 1980 Primary Care Physician: Diya Mora CHIEF COMPLAINT: Chief Complaint Patient presents with Follow-up 2mo History of Present Illness: Jenni Draper is a 40 year old female presented to the office to follow up care for historyof PAF/palpitations syndrome/atypical chest pain/syncope History obtained talking to patient herself/aunt. Since the last OV, reports feeling well from the cardiac standpoint. No new cardiac symptoms elicited. Reports having imbalance issue hence brought her aunt with her for support. No other new cardiac symptoms elicited. AN NYHA Class II stable. Continues to have palpitations that happens at random with no specific aggravating or relieving factors. No PND or orthopnea. No pedal edema. Admitted for 10/2019 was admitted to [facility] for syncope, cp, sob, palpitations. She was given IV digoxin for abnormal heart rhythm labelled as "VT" and developed digoxin toxicity. Transferred to [facility]. Coreg/dig was DC. Toprol XL was started. [...] and the entire system was removed in [facility]. She had IV antibiotics with [...] 2017 was reviewed. Patient was referred to [facility] on September 05, 2017 for [...] INSERTION 10/2017 [facility]; Dr Imtiaz Soto, [facility], inserted twice Family History Problem Relation [...] years: 0.60 Quit date: 05/09/2003 Years since quittin.4 Smokeless tobacco: Never [...] directed every 6 (six) hoursas needed. ALBUTEROL 90 MCG/ACTUATION INHALER Inhale 2 Puffs every 6 (six) hours as needed for Wheezing or Shortness of Breath. ALBUTEROL SULFATE (PROAIR HFA INHALE) Inhale. ALPRAZOLAM [...] LORATADINE (CLARITIN) 10 MG TABLET as needed. PREDNISONE 10 MG TABLET Take 10 mg by mouth every other day. PREGABALIN (LYRICA) 50 MG CAPSULE Take 50 mg by mouth at bedtime. PROAIR HFA 90 MCG/ACTUATION INHALER Inhale 2 Puffs every 6 (six) hours as needed for Wheezing orShortness of Breath. TIOTROPIUM BROMIDE (SPIRIVA RESPIMAT) 2.5 MCG/ACTUATION MIST [...] psychiatric, endocrinological, and hematological. PHYSICAL EXAMINATION: Vitals: 10/02/20 0946 BP: 117/79 BP Location: Right arm Patient Position: Sitting BP CUFF SIZE: Adult Small Pulse: 87 Resp: 20 SpO2: 96% Weight: 127 lb 5.1 oz (57.8 kg) Height: 4' 11" (1.499 m) LABS - Reviewed pertinent labs as below: [...] Value 05/10/2020 140 mg/dL 03/23/2014 104 MG/DL Labs 08/24/2020 reviewed CBC/CMP within acceptable limits from cardiac stand point. Dig level: < 0.4 ALP: 126 ASSESSMENT/PLAN 1. Inappropriate sinus tachycardia 2. Palpitations 3. Sinus tachycardia 4. Essential hypertension 5. History of DVT (deep vein thrombosis) Atypical chest pain: Cardiac CTA 01/2019: Neg. No recurrent cardiac chest pain noted. DC Ranexa since last OV 11/2019. Sinus tachycardia/IST: EP study negative 01/2020 for any inducible arrhythmias. No sustained SVT. No VT/VF. No evidence of accessory pathways. Currently on Coreg 25 mg BiD, digoxin 125 mcg daily. Dig level less than 0.4 done on 08/24/2020 outside. Tried Ivabradine twice but unable to tolerate. First time she had rash second time she passed out and was stopped. We had tried Cardizem CD 120 (but had worsening AN hence stopped). Following up with the EP Dr Sharp. Recurrent syncope: No specific cardiac etiology noted. No recurrence noted. History of PAF: but EP study negative 01/2020 for any inducible arrhythmias. No sustained SVT. No VT/VF. No evidence of accessory pathways. On Eliquis 5 mg twice daily. 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 Currently following hog buyer in [facility]. Dyslipiedemia: on lipitor 10 mg daily. Following up with PCP HTN: Stable. On Coreg 25 mg BiD. Home BP log recommended. Cross check his BP machine. Appropriate ways to check home BP discussed. Goals BP < 130/80 stressed. Explained if BP > 130/80, adviced to send us the log. Lifestyle modifications stressed. Elevated LFTs: Following primary care physician. Follow up in 6 months. Follow up [...] and verbzalised statisfcation in the answers given. Thank you for allowing us to participate in the care of Jenni Draper. If you have any questions or concerns please feel free to call our office at [phone]. I would be happy to be of further assistance for Jenni Draper wellbeing. Kevin Hines MD Hemstitcher, Division of Cardiology [facility] Addendum 08/31/2020 Kevin Hines MD Hemstitcher, Division of Cardiology [facility] RN documented in this encounter Plan of Treatment Date Type Specialty Care Team Description 11/05/2020 Office Visit Pulmonary Disease Delores GuyjavierdonnieDO [address] [place] [address] [phone] 03/02/2021 Laboratory Only Cardiology Pacemaker/Icd, Adc 04/02/2021 Office Visit Cardiology Navi Hines MD [address] [phone] 07/21/2021 Office Visit Pulmonary Disease Heena Bailey MD [address] [address] Health Maintenance Due Date Last Done Comments VARICELLA VACCINES (1 of 2 - 2-dose 1982 childhood series) DTaP,Tdap,and Td Vaccines (1 - Tdap) 2000 PAP SMEAR 06/21/2007 06/21/2004 PNEUMOCOCCAL 0-64 YEARS COMBINED SERIES (3 06/23/201806/23, 11/16/2015 of 3 - PCV13) Depression Screening 10/02/2021 10/02/2020 INFLUENZA VACCINE Completed 08/13/2020, 11/16/2015 documented as of this encounter Implants Implanted Type Area Group Fitness Department Head Device Shelf Expiration Model / Identifier Date Serial / Lot Tendril Mri,A Lead-11/01/[address] [facility] [employer] RA- [id number] / Implanted: Qty: 1 on 11/01/2017 by Imtiaz Soto MD [id number] / Description:This implant is MR Condition al and a member of a 1.5T Only MR Conditional System. Tenril Mri,V Lead-11/01/[address] [facility] [employer] [id number] / Implanted: Qty: 1 on 11/01/2017 by Imtiaz Soto MD [id number] / Description:This implant is MR Condition al and a member of a 1.5T Only MR Conditional System. Assurity Mri-11/01/[address] [employer] [id number] / Implanted: Qty: 1 on 11/01/2017 by Imtiaz Soto MD [id number] / Description:This device ids MR Condition al for a 1.5T Scanner Only. documented as of this encounter Results Not on filedocumented in this encounter Visit Diagnoses Diagnosis Inappropriate sinus tachycardia - Primar y Other specified cardiac dysrhythmias Palpitations Sinus tachycardia Other specified cardiac dysrhythmias Essential hypertension Unspecified essential hypertension History of DVT (deep vein thrombosis) Personal history of venous thrombosis an d embolism documented in this encounter Insurance Payer Benefit Plan / Subscriber ID Effective Phone Address T e Group Dates LYNDSEY DEGROOTINA [id number] 2011-Kobe Amaro [address] [facility] [place] [address] MANAGED MEDICAID [place], [place]ICA[place] documented as of this encounter
--- OUTSIDE RECORDS SUMMARY | 2020-10-08 11:23 | XMS REPORT | Summary of Care ---
:1980 Author Organization [facility] [employer] Address [address] [place] [address] Care Team Providers Name Role Phone ReyesJoshua viramontes Lila Insurance Hmo Yoni Mora MD Primary Care Provider Reason for Visit Reason Comments Follow-up 2mo Encounter Details Date Type Department Care Team Description 10/02/2020 Office Visit [facility] Navi Hines Inappropriate sinus tachycardia (Primary Dx); Cardiology- Nydia Merida MD Palpitations; [address] Sinus tachycardia; [address], [address]O 106 Essential hypertension; [place], [place] History of DVT (deep vein thrombosis) [...] Added automatically from request for yara arslan [id number] Abdominal pain, unspecified abdominal location 018 Overview: Added automatically from request for yara arslan [id number] Nausea and vomiting, intractability of vomiting not sp ecified, unspecified 07/13/2018 vomiting type Overview: Added automatically from request for yara arslan [id number] Non-cardiac chest pain 04/27/2018 Essential hypertension 04/27/2018 Pacemaker 04/27/2018 PAF (paroxysmal atrial fibrillation) 04/27/2018 History of cardiac pacemaker in situ 08/23/2017 Tachycardia, unspecified 06/22/2017 Elevated liver enzymes 07/23/2014 Pseudoseizure 04/15/2014 Left sided numbness 03/22/2014 Prediabetes 09/24/2013 Loss of weight 09/24/2013 Hypothyroidism 09/24/2013 Overview: ICD10 Diagnosis Term Supply Chain Engineer Utility Hypoglycemia 08/21/2013 Overview: ICD10 Diagnosis Term Supply Chain Engineer Utility documented as of this encounter [...] Comments Blood Pressure 117/79 10/02/2020 9:46 AM COMMERCIAL DRIVER Pulse 87 10/02/2020 9:46 AM COMMERCIAL DRIVER Temperature - - Respiratory Rate 20 10/02/2020 9:46 AM COMMERCIAL DRIVER Oxygen Saturation 96% 10/02/2020 9:46 AM COMMERCIAL DRIVER Inhaled Oxygen Concentration - - Weight 57.8 kg (127 lb 5.1 oz) 10/02/2020 9:46 AM COMMERCIAL DRIVER Height 149.9 cm (4' 11") 10/02/2020 9:46 AM COMMERCIAL DRIVER Body Mass Index 25.72 10/02/2020 9:46 AM COMMERCIAL DRIVER documented in this encounter Progress Notes Navi Hines MD - 10/02/2020 10:00 AM CST [facility] Cardiology Consult Note Patient: Jenni Draper Date [...] edema. Admitted for 10/2019 was admitted to [facility] for syncope, cp, sob, palpitations. She was given IV digoxin for abnormal heart rhythm labelled as "VT" and developed digoxin toxicity. Transferred to [facility]. Coreg/dig was DC. Toprol XL was [...] and the entire system was removed in [facility]. She had IV antibiotics with [...] 2017 was reviewed. Patient was referred to [facility] on September 05, 2017 [...] INSERTION 10/2017 [facility]; Dr Imtiaz Soto, [facility], inserted twice Family History Problem Relation [...] file Gets together: Not on file Attends evangelical service: Not on file Active member of [...] per old records: On Eliquis. Currently following pharmacy assistant in [facility]. Dyslipiedemia: on lipitor 10 mg daily. Following [...] feel free to call our office at [phone]. I would be happy to be of further assistance for Jenni Draper wellbeing. Kevin Hines MD Porcelain Enamel Installer, Division of Cardiology [facility] Addendum 08/31/2020 Kevin Hines MD Porcelain Enamel Installer, Division of Cardiology [facility] ERCIAL DRIVER documented in this encounter Plan of Treatment Date Type Specialty Care Team Description 11/05/2020 Office Visit Pulmonary Disease Delores GuyjavierdonnieDO [address] [place] [address] [phone] 03/02/2021 Laboratory Only Cardiology Pacemaker/Icd, Adc 04/02/2021 Office Visit Cardiology Navi Hines MD [address] [place] [address] [phone] 07/21/2021 Office Visit Pulmonary Disease Heena Bailey MD [address] [address] Health Maintenance Due Date Last Done Comments VARICELLA VACCINES (1 of 2 - 2-dose 1982 childhood series) DTaP,Tdap,and Td Vaccines (1 - Tdap) 2000 PAP SMEAR 06/21/2007 06/21/2004 PNEUMOCOCCAL 0-64 YEARS COMBINED SERIES (3 06/23/201806/23, 11/16/2015 of 3 - PCV13) Depression Screening 10/02/2021 10/02/2020 INFLUENZA VACCINE Completed 08/13/2020, 11/16/2015 documented as of this encounter Implants Implanted Type Area Retail Cosmetics Sales Beauty Advisor Device Shelf Expiration Model / Identifier Date Serial / Lot Tendril Mri,A Lead-11/01/[address] [facility] [employer] RA- [id number] / Implanted: Qty: 1 on 11/01/2017 by Imtiaz Soto MD [id number] / Description:This implant is MR Condition al and a member of a 1.5T Only MR Conditional System. Tenril Mri,V Lead-11/01/[address] [facility] [employer] [id number] / Implanted: Qty: 1 on 11/01/2017 by Imtiaz Soto MD [id number] / Description:This implant is MR Condition al and a member of a 1.5T Only MR Conditional System. Assurity Mri-11/01/[address] [employer] [id number] / Implanted: Qty: 1 on 11/01/2017 by Imtiaz Soto MD [id number] / Description:This device ids MR Condition al [...] Address T e Group Dates LYNDSEY DEGROOTINA [id number] 2011-Kobe Am[place] [address] [facility] [place] [address] MANAGED MEDICAID [place] documented as of this encounter
[2020-10-08 11:39] LABS: Urine Blood 1+ (NEG); Urine Glucose NEGATIVE (NEG); Urine Protein NEGATIVE (NEG); Urine Specific Gravity 1.015 (1.005-1.030)
--- NOTE | 2020-10-08 12:22 | RAD REPORT ---
EXAM DESCRIPTION: RAD - Chest Single View - 10/08/2020 12:12 pm CLINICAL HISTORY: chest pain, sob Chest pain. COMPARISON: Chest Single View dated 08/18/2020; Chest Single View dated 07/03/2020; Chest Single View dated 05/23/2020; Chest Single View dated 05/08/2020 FINDINGS: Portable technique limits examination quality. The lungs are grossly clear. The heart is normal in size. No displaced fractures.Dual lead pacer sindi ce is present. IMPRESSION: No acute intrathoracic process suspected.
[2020-10-08 12:35] LABS: SARS-COV-2 RT PCR NEGATIVE (NEGATIVE)
[2020-10-08] MEDS ORDERED: dexAMETHasone 10 MG/ML VIAL ONE (12:39)
--- NOTE | 2020-10-08 15:30 | ER ---
Nurse's Notes [facility] Name: Jenni Draper Age: 40 yrs Sex: Female : 1980 Arrival Date: 10/08/2020 Time: 11:09 Bed 25 Private MD: Diagnosis: Acute bronchitis Presentation: 10/08 11:20 Chief complaint: Patient states: Has chronic bronchitis and asthma, but cough has been ca1 worse x 1 week, SOB since Monday, fever off and on since Monday. Chest pain > 1 week, today was constant. Pt has pacemaker, atrial fib and mitral valve prolapse. Coronavirus screen: Client denies travel out of the [place] in the last 14 days. cough unrelated to allergies, fever, shortness of breath, Client presents with at least one sign or symptom that may indicate coronavirus-19. Standard/surgical mask placed on the client. Provider contacted for isolation considerations. The client reports previous COVID testing was negative. Date of collection: September 27, 2020. Ebola Screen: Patient negative for fever greater than or equal to 101.5 degrees Fahrenheit, and additional compatible Ebola Virus Disease symptoms Patient denies exposure to infectious person. Patient denies travel to an Ebola-affected area in the 21 days before illness onset. No symptoms or risks identified at this time. Initial Sepsis Screen: Does the patient meet any 2 criteria? No. Patient's initial sepsis screen is negative. Does the patient have a suspected source of infection? No. Patient's initial sepsis screen is negative. Risk Assessment: Do you want to hurt yourself or someone else? Patient reports no desire to harm self or others. Onset of symptoms was October 08, 2020. 11:20 Method Of Arrival: Wheelchair ca1 11:20 Acuity: LYUBOV 3 ca1 Triage Assessment: 11:26 Respiratory: Onset: The symptoms/episode began/occurred X 1 week, the patient has mild jd3 shortness of breath. 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 NURSE PRACTITIONER: 11:27 LMP N/A - Hysterectomy ca1 Historical: - Allergies: 11:27 Adhesives; ca1 11:27 Aspirin; ca1 11:27 Bactrim; ca1 11:27 Benadryl; ca1 11:27 cefixime; ca1 11:27 Cipro IV; ca1 11:27 Clindamycin; ca1 11:27 coconut oil; ca1 11:27 Demerol; ca1 11:27 Detrol; ca1 11:27 Diltiazem; ca1 11:27 Doxycycline; ca1 11:27 FISH PRODUCT DERIVATIVES; ca1 11:27 GABAPENTIN; ca1 11:27 Iodine; ca1 11:27 ivabradine; ca1 11:27 Latex, Natural Rubber; ca1 11:27 Levofloxacin; ca1 11:27 Morphine; ca1 11:27 PENICILLINS; ca1 11:27 QUETIAPINE; ca1 11:27 Seroquel; ca1 11:27 Sulfa (Sulfonamide Antibiotics); ca1 11:27 Suprax; ca1 11:27 tolterodine; ca1 11:27 tramadol; ca1 - PMHx: 11:27 Atrial Fib; CHF; mitral valve prolapse; Asthma; Bronchitis; ca1 - PSHx: 11:27 pacemaker; Hysterectomy; ca1 - Immunization history:: Adult Immunizations up to date, Pneumococcal vaccine is up to date, Flu vaccine is up to date. - Social history:: Smoking status: Patient/guardian denies using tobacco, the patient reports quitting approximately 18 years ago. Screenin:26 Abuse screen: Denies threats or abuse. Nutritional screening: No deficits noted. jd3 Tuberculosis screening: No symptoms or risk factors identified. Fall Risk Ambulatory Aid- None/Bed Rest/Nurse Assist (0 pts). Gait- Normal/Bed Rest/Wheelchair (0 pts) Mental Status- Oriented to own ability (0 pts). Total Jolly Fall Scale indicates No Risk (0-24 pts). Assessment: 11:23 General: Appears in no apparent distress. uncomfortable, Behavior is calm, cooperative, jd3 appropriate for age. Pain: Complains of pain in chest Quality of pain is described as aching, pressure. Neuro: Level of Consciousness is awake, alert, obeys commands, Oriented to person, place, time, situation. Cardiovascular: Reports chest pain, Heart tones S1 S2 present Capillary refill < 3 seconds Patient's skin is warm and dry. Rhythm is regular. Respiratory: Reports shortness of breath on exertion cough that is non-productive, persistent Airway is patent Respiratory effort is even, unlabored, Respiratory pattern is regular, symmetrical, Breath sounds are clear bilaterally. GI: No signs and/or symptoms were reported involving the gastrointestinal system. Patient currently denies constipation, diarrhea, nausea, vomiting. : No signs and/or symptoms were reported regarding the genitourinary system. EENT: No signs and/or symptoms were reported regarding the EENT system. Derm: Skin is intact, Skin is dry, Skin is normal, Skin temperature is warm. Musculoskeletal: Circulation, motion, and sensation intact. Range of motion: intact in all extremities. 12:34 Reassessment: Patient appears in no apparent distress at this time. No changes from jd3 previously documented assessment. Patient and/or family updated on plan of care and expected duration. Pain level reassessed. Patient is alert, oriented x 3, equal unlabored respirations, skin warm/dry/pink. 13:28 Reassessment: Patient and/or family updated on plan of care and expected duration. Pain jd3 level reassessed. Patient is alert, oriented x 3, equal unlabored respirations, skin warm/dry/pink. pt reporting that she is starting to feel better, pain decreasing, no distress noted at this time. water provided to pt. Patient states feeling better. 14:25 Reassessment: Patient appears in no apparent distress at this time. Patient and/or jd3 family updated on plan of care and expected duration. Pain level reassessed. Patient is alert, oriented x 3, equal unlabored respirations, skin warm/dry/pink. awaiting lab results, lab called for lab results, placed on hold for 10 min. will call back. 15:00 Reassessment: called outside lab to inquire about lab results. lab notified me that jd3 there was a recollect needed. charge nurse notified. phlebotomy called to help with blood draw. 15:19 Reassessment: it was reported to me that there was a delay in communication about the iw need for lab recollect, i received a call from pt's and I advised him of the delay, he began yelling at me stating "she's not waiting any longer, no one is telling her anything and this is bullshit" I advised him that she was updated on the situation. continues yelling stating that he was going to walk out to administration and complain. I then spoke with pt and she began yelling at me stating "this is so wrong, what kind of lab do y'all have, I'm not waiting any longer" I came back with AMA form and pt said she was not going to sign it because it's our fault, I advised pt that she is still leaving against medical advice because the PA does not have her results back yet. Pt still yelling. I left the room. Pt dressed and ambulated out of dept. Vital Signs: 11:20 BP 147 / 93; Pulse 77; Resp 19 S; Temp 99(O); Pulse Ox 100% on R/A; Weight 57.15 kg ca1 (R); Height 4 ft. 11 in. (149.86 cm) (R); Pain 9/10; 12:34 BP 107 / 88; Pulse 80; Resp 17 S; Pulse Ox 97% on R/A; jd3 13:28 BP 109 / 76; Pulse 81; Resp 18 S; Pulse Ox 98% on R/A; jd3 14:25 BP 116 / 81; Pulse 88; Resp 17 S; Pulse Ox 98% on R/A; jd3 11:20 Body Mass Index 25.45 (57.15 kg, 149.86 cm) ca1 ED Course: 11:09 Patient arrived in ED. ag5 11:10 Lj Tobin PA is PHCP. jmm 11:10 Kong Reyes MD is Attending Physician. jmm 11:23 Fritz Cho RN is Primary Nurse. jd3 11:24 Triage completed. ca1 11:26 Patient has correct armband on for positive identification. Placed in gown. Bed in low jd3 position. Call light in reach. Side rails up X 1. 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 Pulse ox on. NIBP on. 11:27 Arm band placed on. EKG completed in triage. Results shown to MD. jd3 12:09 X-ray completed. Portable x-ray completed in exam room. Patient tolerated procedure mh1 well. 12:12 XRAY Chest (1 view) In Process Unspecified. EDMS 12:29 Inserted saline lock: 24 gauge in left hand, using aseptic technique. jd3 15:15 IV discontinued, intact, bleeding controlled, No redness/swelling at site. Pressure iw dressing applied. Administered Medications: 12:29 Drug: Decadron - Dexamethasone 10 mg Route: IVP; Site: left hand; jd3 13:20 Follow up: Response: No adverse reaction jd3 Outcome: 15:27 AMA Left before signing form. iw 15:29 Discharge ordered by . jmm 15:35 Patient left the ED. iw Signatures: Dispatcher [employer] EDMS jL Tobin PA PA jmm Harvey, Martha 1 Flor Chauhan RN RN iw Fritz Cho RN RN jd3 Mariann Woods RN RN ca1 Vince, Blanquita ag5 Corrections: (The following items were deleted from the chart) 11:52 11:27 Allergies: Codeine; ca1 jd3 16:03 12:34 Reassessment: Patient appears in no apparent distress at this time. No changes jd3 from previously documented assessment. Patient and/or family updated on plan of care and expected duration. Pain level reassessed. Patient is alert, oriented x 3, equal unlabored respirations, skin warm/dry/pink. jd3 16:03 13:28 Reassessment: Patient appears in no apparent distress at this time. Patient jd3 and/or family updated on plan of care and expected duration. Pain level reassessed. Patient is alert, oriented x 3, equal unlabored respirations, skin warm/dry/pink. Patient states feeling better. jd3 16:03 14:25 Reassessment: Patient appears in no apparent distress at this time. Patient jd3 and/or family updated on plan of care and expected duration. Pain level reassessed. Patient is alert, oriented x 3, equal unlabored respirations, skin warm/dry/pink. jd3 16:54 15:00 Reassessment: called outside lab to inquire about lab results. lab notified me jd3 that there was a recollect needed and that no one was notified. charge nurse notified. phlebotomy called to help with blood draw. jd3
--- NOTE | 2020-10-08 15:30 | EDPHYS ---
Physician Documentation [facility] Name: Jenni Draper Age: 40 yrs Sex: Female : 1980 Arrival Date: 10/08/2020 Time: 11:09 Bed 25 Private MD: ED Physician Kong Reyes HPI: 10/08 11:30 This 40 yrs old Female presents to ER via Wheelchair with complaints of jmm Shortness Of Breath, Cough, Chest Pain. 11:30 The patient has shortness of breath at rest. Onset: The symptoms/episode began/occurred jmm gradually, 1 week(s) ago. Duration: The symptoms are continuous. The patient's shortness of breath is aggravated by nothing, is alleviated by nothing. This is a 40 year old female with a history of CHF, MVP, sick sinus syndrome which presents to the ED with complaints of chest pain with cough. 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 Patient states a normal Cath this past January. . TECHNICAL SERVICE REP: 11:27 LMP N/A - Hysterectomy ca1 Historical: - Allergies: 11:27 Adhesives; ca1 11:27 Aspirin; ca1 11:27 Bactrim; ca1 11:27 Benadryl; ca1 11:27 cefixime; ca1 11:27 Cipro IV; ca1 11:27 Clindamycin; ca1 11:27 coconut oil; ca1 11:27 Demerol; ca1 11:27 Detrol; ca1 11:27 Diltiazem; ca1 11:27 Doxycycline; ca1 11:27 FISH PRODUCT DERIVATIVES; ca1 11:27 GABAPENTIN; ca1 11:27 Iodine; ca1 11:27 ivabradine; ca1 11:27 Latex, Natural Rubber; ca1 11:27 Levofloxacin; ca1 11:27 Morphine; ca1 11:27 PENICILLINS; ca1 11:27 QUETIAPINE; ca1 11:27 Seroquel; ca1 11:27 Sulfa (Sulfonamide Antibiotics); ca1 11:27 Suprax; ca1 11:27 tolterodine; ca1 11:27 tramadol; ca1 - PMHx: 11:27 Atrial Fib; CHF; mitral valve prolapse; Asthma; Bronchitis; ca1 - PSHx: 11:27 pacemaker; Hysterectomy; ca1 - Immunization history:: Adult Immunizations up to date, Pneumococcal vaccine is up to date, Flu vaccine is up to date. - Social history:: Smoking status: Patient/guardian denies using tobacco, the patient reports quitting approximately 18 years ago. ROS: 11:30 Constitutional: Negative for fever, chills, and weight loss. jmm 11:30 Abdomen/GI: Negative for abdominal pain, nausea, vomiting, diarrhea, and constipation, Back: Negative for injury and pain. 11:30 Cardiovascular: Positive for chest pain, with cough. 11:30 Respiratory: Positive for cough, shortness of breath. 11:30 All other systems are negative. Exam: 11:30 Constitutional: This is a well developed, well nourished patient who is awake, alert, jmm and in no acute distress. Head/Face: atraumatic. Eyes: EOMI, no conjunctival erythema appreciated ENT: Moist Mucus Membranes Neck: Trachea midline, Supple Chest/axilla: Normal chest wall appearance and motion. Cardiovascular: Regular rate and rhythm. No edema appreciated Respiratory: Normal respirations, no respiratory distress appreciated Abdomen/GI: Non distended, soft Back: Normal ROM Skin: General appearance color normal MS/ Extremity: Moves all extremities, no obvious deformities appreciated, no edema noted to the lower extremities Neuro: Awake and alert, normal gait Psych: Behavior is normal, Mood is normal, Patient is cooperative and pleasant Vital Signs: 11:20 BP 147 / 93; Pulse 77; Resp 19 S; Temp 99(O); Pulse Ox 100% on R/A; Weight 57.15 kg ca1 (R); Height 4 ft. 11 in. (149.86 cm) (R); Pain 9/10; 12:34 BP 107 / 88; Pulse 80; Resp 17 S; Pulse Ox 97% on R/A; jd3 13:28 BP 109 / 76; Pulse 81; Resp 18 S; Pulse Ox 98% on R/A; jd3 14:25 BP 116 / 81; Pulse 88; Resp 17 S; Pulse Ox 98% on R/A; jd3 11:20 Body Mass Index 25.45 (57.15 kg, 149.86 cm) ca1 MDM: 11:35 Patient medically screened. [facility] 15:27 Data reviewed: vital signs, nurses notes. Counseling: I had a detailed discussion with laya the patient and/or guardian regarding:. ED course: Patient left the ED against medical advice. Patient upset due to lack of timely results. Patient appears alert and non toxic in the ED upon leaving. Patient advised to return to the ED if symptoms worsen. . 10/08 11:30 Order name: Urine Dipstick--Ancillary (enter results); Complete Time: 12:02 1 10/08 11:37 Order name: Basic Metabolic Panel [facility] 10/08 11:37 Order name: CBC with Diff [facility] 10/08 11:37 Order name: LFT's [facility] 10/08 11:37 Order name: Magnesium [facility] 10/08 11:37 Order name: NT PRO-BNP [facility] 10/08 11:37 Order name: PT-INR [facility] 10/08 11:37 Order name: Troponin (emerg Dept Use Only) [facility] 10/08 11:41 Order name: Strep; Complete Time: 12:54 [facility] 10/08 11:41 Order name: Strep [facility] 10/08 12:35 Order name: COVID-19/FLU A+B; Complete Time: 12:54 [facility] 10/08 12:38 Order name: Throat Culture [facility] 10/08 11:37 Order name: XRAY Chest (1 view); Complete Time: 12:26 [facility] 10/08 11:37 Order name: EKG; Complete Time: 11:38 [facility] 10/08 11:37 Order name: Cardiac monitoring; Complete Time: 11:37 [facility] 10/08 11:37 Order name: EKG - Nurse/Tech; Complete Time: 11:37 [facility] 10/08 11:37 Order name: IV Saline Lock; Complete Time: 12:23 [facility] 10/08 11:37 Order name: Labs collected and sent; Complete Time: 11:49 [facility] 10/08 11:37 Order name: O2 Per Protocol; Complete Time: 11:37 [facility] 10/08 11:37 Order name: O2 Sat Monitoring; Complete Time: 11:37 [facility] Administered Medications: 12:29 Drug: Decadron - Dexamethasone 10 mg Route: IVP; Site: left hand; jd3 13:20 Follow up: Response: No adverse reaction jd3 Disposition: 10/09 05:50 Co-signature as Attending Physician, Kong Reyes MD I agree with the assessment and kdr plan of care. Disposition: 10/08/20 15:29 Discharged to Home. Impression: Acute bronchitis. - Condition is Stable. - Discharge Instructions: Acute Bronchitis, Adult. - Medication Reconciliation Form, Thank You Letter, Antibiotic Education, Prescription Opioid Use form. - Follow up: Private Physician; When: 2 - 3 days; Reason: Recheck today's complaints, Continuance of care, Re-evaluation by your physician. Signatures: Dispatcher [employer] EDCO Kong Reyes MD MD kdr Mickail, Joel, PA PA jmm Williams, Irene RN RN iw Fritz Cho RN RN jd3 AcobMariann RN RN ca1 Corrections: (The following items were deleted from the chart) 10/08 11:52 11:27 Allergies: Codeine; ca1 jd3 11:54 11:38 CORONAVIRUS+MR.LAB.BRZ ordered. EDCO EDCO 11:54 11:38 Influenza Screen (A \T\ B)+BA.LAB.BRZ ordered. [facility] EDCO 15:35 15:29 10/08/2020 15:29 Discharged to Home. Impression: Acute bronchitis. Condition is iw Stable. Forms are Medication Reconciliation Form, Thank You Letter, Antibiotic Education, Prescription Opioid Use. Follow up: Private Physician; When: 2 - 3 days; Reason: Recheck today's complaints, Continuance of care, Re-evaluation by your physician. josh
[2020-10-08 15:31] LABS: Protime INR 0.99
[2020-10-08 15:34] LABS: Absolute Lymphocytes (CBC) 1.1 K/uL (0.7-4.9); Basophils % 0.3 % (0-1.3); Hematocrit 43.4 % (36.0-45.0); Lymphocytes % 13.2 % (15.3-44.8); MPV 8.3 fL (7.6-11.3); RBC Red Blood Cell Count 4.95 M/uL (3.86-4.86)
[2020-10-08 15:40] VITALS: TEMP 99
[2020-10-08 15:43] VITALS: O2SAT 98
[2020-10-08 15:44] VITALS: BP 116/81
[2020-10-08 15:44] LABS: ALT/SGPT 26 U/L (12-78); AST/SGOT 15 U/L (15-37); Albumin 3.8 g/dL (3.4-5.0); Alkaline Phosphatase 106 U/L (45-117); BUN Blood Urea Nitrogen 14 mg/dL (7-18); Bicarbonate 29 mmol/L (21-32); Bilirubin Direct < 0.1 mg/dL (0-0.2); Bilirubin Total 0.4 mg/dL (0.2-1.0); Glucose Level 161 mg/dL (74-106); Magnesium 2.7 mg/dL (1.8-2.4); NT PRO-BNP 29 pg/mL (<125); Protein, Total 7.9 g/dL (6.4-8.2); Sodium Level 139 mmol/L (136-145); Troponin (Emerg Dept Use Only) < 0.02 ng/mL (0.0-0.045)
--- NOTE | 2020-10-10 13:32 | EKG ---
Test Date: 2020-10-08 Test Time: 11:15:06 Derrick Boat Runner: SCOTT MEASUREMENT RESULTS: Intervals: Rate: 78 OH: 136 QRSD: 84 QT: 348 QTc: 396 Reynolds: P: 48 OH: 136 QRS: 33 T: 51 INTERPRETIVE STATEMENTS: Normal sinus rhythm Normal ECG Compared to ECG 08/18/2020 22:34:40 Incomplete right bundle-branch block no longer present Electronically Signed On 10-10-20 13:28:34 PAPER REELER by Nadeem Rajan
== END 2020-10-08 15:35 | disposition home or self-care (01) ==
LOC: ER 11:04
DX: J20.9 Acute bronchitis, unspecified (principal); Z20.822 Contact with and (suspected) exposure to COVID-19; I50.9 Heart failure, unspecified; Z95.0 Presence of cardiac pacemaker; Z88.1 Allergy status to other antibiotic agents; Z88.2 Allergy status to sulfonamides; Z88.5 Allergy status to narcotic agent; Z88.6 Allergy status to analgesic agent; Z88.8 Allergy status to other drugs, medicaments and biological substances; Z91.013 Allergy to seafood; Z91.018 Allergy to other foods; Z91.040 Latex allergy status; Z91.048 Other nonmedicinal substance allergy status
CPT/HCPCS: 93005; 87070; 85025; 80048; 36415; 83735; 85610; 80076; 87081; 81003; 84484; 83880; 0240U; 71045; 96374; 99284; J1100

== ENCOUNTER 2021-01-28 17:17 | Emergency (ER) | payer MEDICAID ==
--- OUTSIDE RECORDS SUMMARY | 2021-01-28 17:20 | XMS REPORT | Continuity of Care Document ---
:1980 Author Organization [facility] t Address [address] [place] [address] Care Team Providers Name Role Phone MILTON Primary Care Physician Unavailable Donny LARSEN, K.H. Attending Clinician Miguel Hoang Attending Clinician Mike LARSEN Attending Clinician Nevaeh BARRAGAN Attending Clinician Unavailable Radha FONG S Attending Clinician Malena VEGA Attending Clinician LEONOR Attending Clinician Unavailable BADAR Attending Clinician Unavailable Mike LARSEN Admitting Clinician LEONOR Admitting Clinician Unavailable BADAR Admitting Clinician Unavailable Payers Payer Name Policy Type Policy Number Effective Date Expiration Date S murali Problems Condition Condition Condition Status Onset Resolution [...] Penicill DA Active SV 2020-0 [facility] ins 1-04 [place] 00:00: d 00 [facility] Sulfa DA Active MO 2020-0 [facility] (Sulfona 1-04 [place] mide 00:00: d Antibiot 00 [facility] [place] Fish FA Active SV 2020-0 [facility] Containi 1-04 [place] ng 00:00: d Products 00 [facility] iodine DA Active MO 2020-0 [facility] 1-04 [place] 00:00: d 00 [facility] morphine DA Active SV 2020-0 [facility] 1-04 [place] 00:00: d 00 [facility] aspirin DA Active SV 2020-0 [facility] 1-04 [place] 00:00: d 00 [facility] cephalex DA Active SV 2020-0 [facility] in 1-04 [place] 00:00: d 00 [facility] cefixime DA Active MO 2020-0 [facility] 1-04 [place] 00:00: d 00 [facility] doxycycl DA Active SV 2020-0 [facility] ine 1-04 [place] 00:00: d 00 [facility] clindamy DA Active MO 2020-0 [facility] stephan 1-04 [place] 00:00: d 00 [facility] sulfamet DA Active MO 2020-0 [facility] hoxazole 1-04 [place] 00:00: d 00 [facility] trimetho DA Active MO 2020-0 [facility] prim 1-04 [place] 00:00: d 00 [facility] ciproflo DA Active SV 2020-0 [facility] xacin 1-04 [place] 00:00: d 00 [facility] adhesive DA Active SV 2020-0 [facility] tape 1-04 [place] 00:00: d 00 [facility] tramadol DA Active SV 2020-0 [facility] 1-04 [place] 00:[facility]: d 00 [facility] gabapent DA Active SV 2020-0 [facility] in 09-28 [place] 00:00: d 00 [facility] diltiaze DA Active SV 2020-0 [facility] m 09-28 [place] 00:[facility]: d 00 [facility] diphenhy DA Active SV 2020-0 [facility] dramine 09-28 [place] 00:00: d 00 [facility] topirama DA Active SV 2020-0 [facility] te 09-28 [place] 00:00: d 00 [facility] levoflox DA Active SV 2020-0 [facility] acin 09-28 [place] 00:00: d 00 [facility] quetiapi DA Active MO 2020-0 [facility] ne 09-28 [place] 00:00: d 00 [facility] tolterod DA Active MO 2020-0 [facility] ine 09-28 [place] 00:00: d 00 [facility] latex DA Active SV 2020-0 [facility] 09-28 [place] 00:00: d 00 [facility] ivabradi DA Active MO 2020-0 [facility] ne 09-28 [place] 00:00: d 00 [facility] coconut FA Active MO 2020-0 [facility] 09-28 [place] 00:00: d 00 [facility] Iodine Propensi Active Rash 2017-[address] [facility] [address] [facility] 10[facility]17 [facility] Iodide adverse 00:00: Medical Containi reaction 00 Center s Products Latex Propensi Active Rash 2017-09 [...] adverse 00:00: Medical Antibiot reaction 00 [facility] s Cefixime Propensi Active Rash 2017-[address] [facility] [address] [facility] to 10-17 [facility] - adverse 00:00: Medical reaction 00 Center s Tramadol Propensi Active Rash 2017-[address] [facility] [facility] to 10-17 [facility] - adverse 00:00: Medical reaction 00 Center s Adhesive Propensi Active Rash 2017-09 Can use [...] Start Date Stop Date Quantity Comments Source Sex Assigned At [facility] Alcohol intake 2018-08-18 2018-08-18 [facility] (finding) Medications Ordered Filled Start Stop Current Ordering Indication Dosage Frequency Signature Comments Components Source Medication Medication Date Date Medication? Clinician (SIG) Name Name albuterol 2017-09 Yes 1{ampul Q.04700531 Take [address] (ACCUNEB) 1-27 e} [id number] ampule [facility] - 1.25 mg/3 13:20: [...] 13:20: daily as Me dical 58 needed. [place] fluticasone 2017-09 Yes 1{puff} QD Inhale 1 [...] 13:20: with mouth Medical 58 Chronic daily. [place] Bronchitis digoxin 2017-09 Yes 125ug QD Take 125 [facility] (LANOXIN) 1-27 mcg [facility] - 0.125 MG 13:20: mouth Medical tablet 58 daily. [place] venlafaxine 2017-09 Yes 150mg QD Take [address] (EFFEXOR-XR 1-27 mg by [facility] - ) 150 MG 24 13:20: mouth Medic al hr capsule 58 daily. [place] apixaban 2017-09 Yes 5mg QD Take [address] [address] (ELIQUIS) 5 -27 by mouth Luke s - mg Tab 13:20: daily. Medical tablet 58 [place] levETIRAcet 2017-09 Yes 1000mg Q.5D Take 1,000 [...] 10 mg 13:20: daily. Medical tablet 58 [place] pregabalin 2017-09 Yes 25mg QD Take [address] (LYRICA) 25 1-27 by mouth Luke s - MG capsule 13:20: nightly. Med ical 58 [place] triamcinolo 2017-09 Yes 2{spray QD [address] ne 1-27 } by Nasal [facility] - (NASACORT) 13:20: route Medica l 55 mcg 58 daily. [place] nasal inhaler esomeprazol 2017-09 Yes 40mg QD Take [address] [facility] (NEXIUM) 1-27 by mouth [facility] - 40 MG 13:20: daily. Medical capsule 58 [place] albuterol 2017-09 Yes 2{puff} Inhale [address] HFA 1-27 puffs by [facility] - (VENTOLIN 13:20: mouth via Med ical HFA) 90 58 inhaler. [place] mcg/actuati on inhaler ranolazine 2017-09 Yes 500mg [...] s - 5 MG tablet 13:20: nightly. Ut dical 57 [place] Procedures This patient has no known procedures. Plan of Care Planned Activity Planned Date Details Comments Source Future Scheduled 2021-05-[address] [facility] - Test 00:00:00 (Season Ended) [code Medical Center = INFLUENZA VACCINE (Season Ended)] Future Scheduled 2020-09-[address] [facility] - Test 00:00:00 (12+) [code = Medical Center DEPRESSION SCREENING (12+)] Future Scheduled [address] [facility] [facility] - Test 00:00:00 malignant neoplasm of Medica l Center cervix (procedure) [code = 652237255] Future Scheduled 2000 DTAP/TDAP/TD VACCINES [facility] Test 00:00:00 (1 - Tdap) [code = Medical C enter DTAP/TDAP/TD VACCINES (1 - Tdap)] Future Scheduled 1999 HEPATITIS C [facility]CRE[facility]ING [facility] Test 00:00:00 [code = HEPATITIS C Medical Center SCREENING] Encounters Start End Encounter Admission Attending Care Care Encounter Source Date/Time Date/Time Type Type Clinicians Facility Department ID 2021-01-25 2021-01-25 [facility] [id number] 00:00:00 00:00:00 Navi Stafford [id number] Milo [id number] [facility] [id number] [facility] 059 [facility] 2021-01-11 2021-01-12 Emergency Lilia Pichardo [facility] [id number] 20:43:00 04:47:00 Malika Mckeon [id number] [place] 4.2.7.2.686 [place] [id number] 2021-01-11 2021-01-11 Nurse NURYS Herring [id number] 00:00:00 00:00:00 Triage Dayana PINKY [id number] [facility] 4.2.7.2.686 [id number] 2020-11-13 2020-11-13 [facility] [id number] 17:55:00 22:25:00 Lillie Stafford [id number] [place] 4.2.7.2.686 [place] [id number] 084 2020-11-05 2020-11-05 Office Malena [facility] [id number] 14:22:39 15:26:25 Visit Tucker Stafford [id number] Jacki 4.2.7.2.686 leonard [id number] nal 085 [facility] 2017-09-06 2017-09-08 [facility] [id number] [facility] 10:12:00 02:32:00 [facility] Results Test Description Test Time Test Comments Results Result Comments Source SURG 2020-09-30 15:45:00 Test Item Value Reference Range Interpretation Comme nts SURG RUN DATE: (test 09/30/20 H JAYMIE Sawn [place] - LAB PAGE 1 RUN TIME: 1546 code = Specimen Inquiry RUN USER: INTERFACE SURG) PATIENT: ADAM MARSH LOC: [place] U #: [id number] AGE/SX: 40/ F ROOM: RE09/29/20REG DR: Linus Boone MD : 82 BED: DIS: STATUS: DEP [facility] TLOC: SPEC #: PMC:S-11-21 RECD: STATUS: MACIEL DEY #: [id number] WU: 09/29/[address]: Linus Boone MD ENTERED: 09/29/20 SP TYPE: SURG OTHR DR: Yessica snow Provider ORDERED: SURG PATH LVL 4 COPIES TO: Linus Boone MD [address] [place] [id number] Undefined Provider HISTOLOGY: TISSUE ID BLK PCS DHIRAJ LEV PROCEDURE DISPOSIT ION ____ ___ ___ ___ STOMACH, NOS A 1 2 PROCEDURES: SURG PATH LVL 4 (09/29/20) TISSUES: A. STOMAC H, NOS - GASTRIC BIOPSY CLINICAL HISTORY R10.13, K21.9, K92.0, R14.0, R11.2, R19.7, R19.4 CPT CODES CPT CODE(S): 07492 , , , , , , FINAL DIAGNOSIS Stomach, biopsy: MILD CHRONIC GASTRITIS NEGATIVE FOR INT ESTINAL METAPLASIA, DYSPLASIA, OR MALIGNANCY NEGATIVE FOR HELICOBACTER PYLORI ORGANISMS CIELO S DESCRIPTION Gastric biopsy. Received in formalin are two wilkinson tissue fragments, 0.4 cm each, nagi dobson/nr Grossing performed at [facility] Pathology, [address] [place] [address], [address], [place] [address]. Quality Assurance Intern: Aditya Hanson M.D. CONTINUED ON NEXT PAGE RUN DATE: 09/30/20 Shauna Swan [facility] PAGE 2 RUN TIME: 1545 Specimen Inquiry RUN USER: INTERFACE SPEC #: [facility]:S-08-15 PATIENT: ADAM MARSH #[id number] (Continued) MICROSCOPIC DESCRIPTION Gastric biopsy. Sections demonstrate gastric mucosa with mild chronic inflammation. No dysplasia or malignancy is identified. No evidence of Helicobacter pylori organisms or intestinal metaplasia is seen. Signed SIGNATURE ON FILE ShondaGilmer quezada eliz Jerez 09/30/20 1545 END OF REPORT COVID 19 INHOUSE [id number] 13:41:00 Test Item Value Reference Range Interpretation Comments COVID 19 INHOUSE AG NEGATIVE Negative Per manu facturer, (test code = negative result s should [id number]) be treated aspr esumptive and, if inconsi [...] symptoms co nsistent with COVID-19. BASIC METABOLIC [id number] 13:40:00 Test Item Value Reference Range Interpretation [...] MG/DL 8.5-10.1 N - XR CHEST 1 [id number] 13:33:00 [facility] : 1980 Sex: F Name: ADAM MARSH [place] : 05/[birth year] Age/S: 40 / F [address] [place] [address] Unit #: [id number] Loc: [place] [address] Phys: Linus Boone MD Acct: [id number] Dis Date: Status: PRE [facility] PHONE #: [phone] Exam Date: 09/28/2020 1326 FAX #: Reason: PREOP EXAMS: CPT: [id number] XR CHEST 1 V 27883 Fluoro Time: DAP (Gy m2): Air Kerma [...] normal. IMPRESSION: No acute cardiopulmonary process. at 1333 Reported and signed by: Lynda Pitts M.D. CC: Linus Boone MD PAGE 1 Signed Report Name: ADAM MARSH [place] : 1980 Age/S: 40 / F [address] [place] [address] Unit #: [id number] Loc: [place] [address] Phys: Linus Boone MD Acct: [id number] Dis Date: Status: PRE [facility] PHONE #: [phone] Exam Date: 09/28/2020 1326 FAX #: Reason: PREOP EXAMS: CPT: [id number] XR CHEST 1 V 99993 Fluoro Time: DAP (Gy m2): Air Kerma (mGy): <Continued> Technologist: Shari Davila RT(R)(CT) Trnscb Date/Time: 09/28/2020 (4843) 16 Orig Print D/T: S: 09/28/2020 (2476) PAGE 2 SignedReportPROTHROMBIN [id number] 13:29:00 Test Item Value Reference Range Interpretation Comments PT PATIENT (test code = PTP) 10.6 SECONDS 9.3-12.9 N INTERNATIONAL NORMAL RATIO 0.95 INR Unit 0.8-1.2 N (test code = INR) THROMBOPLASTIN TIME [id number] 13:29:00 Test Item Value Reference Range Interpretation Comments THROMBOPLASTIN TIME PARTIAL 28.0 SECONDS 26-35 N (test code = PTT) CBC W/AUTO [id number] 13:26:00 Test Item Value Reference Range Interpretation [...] code NO DIFF/SCN CRITERIA = MDIFF) POCT-GLUCOSE [id number] 10:22:00 Test Item Value Reference Range Interpretation Comments POC-GLUCOSE METER 102 mg/dL 70-[address] [facility] 67 ([facility]) (test code = AYLIN Rivera [facility] 1538) [address] MR, MRA, BRAIN, WITHOUT [id number] 09:32:00Reason for exam:->Ischemic Stroke EvaluationFINAL REPORT MRA Head CLINICAL HISTORY: Ischemic Stroke TECHNIQUE: MRA of the head utilizing 3-D qxfx-zu-ygeobd technique, with 3-D reconstructions. COMPARISON: None FINDINGS: There is no evidence of intracranial aneurysm, focal stenosis, or major branch vessel occlusion. IMPRESSION: No evidence for a major [place] proximal branch vessel occlusion. MRA Neck CLINICAL HISTORY: Ischemic Stroke TECHNIQUE: MRA of the neck utilizing 2-D and 3-D pqtr-fy-urkmib technique, with 3-D reconstructions. COMPARISON: None FINDINGS: The carotid arteries in the neck are patent including their bifurcations. There is antegrade flow in the vertebral arteries in the neck. IMPRESSION: No evidence of hemodynamically significant stenosis in the cervical carotid or vertebral arteries by NASCET criteria. Signed: Santos Winn MDReport Verified Date/Time: 08/21/2018 09:32:09 Reading Location: [address] Neuro Reading Room MR, MRA, NECK, WITHOUT IV [id number] 09:32:00Reason for exam:->Ischemic Stroke EvaluationFINAL REPORT MRA Head CLINICAL HISTORY: Ischemic Stroke TECHNIQUE: MRA of the head utilizing 3-D jlgq-iy-twqccz technique, with 3-D reconstructions. COMPARISON: None FINDINGS: There is no evidence of intracranial aneurysm, focal stenosis, or major branch vessel occlusion. IMPRESSION: No evidence for a major [place] of [place] proximal branch vessel occlusion. MRA Neck CLINICAL HISTORY: Ischemic Stroke TECHNIQUE: MRA of the neck utilizing 2-D and 3-D geal-uh-scvbht technique, with 3-D reconstructions. COMPARISON: None FINDINGS: The carotid arteries in the neck are patent including their bifurcations. There is antegrade flow in the vertebral arteries in the neck. IMPRESSION: No evidence of hemodynamically significant stenosis in the cervical carotid or vertebral arteries by NASCET criteria. Signed: Santos Winn Verified Date/Time: 08/21/2018 09:32:09 Reading Location: [address] Neuro Reading Room MR, BRAIN, WITHOUT [id number] 09:25:00Reason for exam:- >Ischemic Stroke EvaluationFINAL REPORT [...] Winn Verified Date/Time: 08/21/2018 09:25:25 Reading Location: [address] Neuro R eading Room POCT-GLUCOSE [id number] 21:26:00 Test Item Value Reference Range Interpretation Comments POC-GLUCOSE METER 119 mg/dL 70-110 H TESTED AT [place] [address] ([facility]) (test code = AYLIN Rivera [facility] 1538) [address] POCT-GLUCOSE [id number] 18:03:00 Test Item Value Reference Range Interpretation Comments POC-GLUCOSE METER 119 mg/dL 70-110 H TESTED AT [place] [address] ([facility]) (test code = AYLIN Rivera [facility] 1538) [address] POCT-GLUCOSE [id number] 12:39:00 Test Item Value Reference Range Interpretation Comments POC-GLUCOSE METER 120 mg/dL 70-110 H TESTED AT [place] [address] ([facility]) (test code = AYLIN Rivera [facility] 1538) [address] RAD, CHEST, 1 VIEW, NON [id number] 12:04:00Reason for exam:->To Locate Heart Device (Pacemaker)Should [...] MDReport Verified Date/Time: 08/20/2018 12:04:06 Reading Location: [facility] Radiology Reading Room POCT-GLUCOSE [id number] 09:17:00 Test Item Value Reference Range Interpretation Comments POC-GLUCOSE METER 121 mg/dL 70-110 H TESTED AT [place] [address] ([facility]) (test code = AYLIN Rivera [facility] 1538) [address] BASIC METABOLIC [id number] 06:56:00 Test Item Value Reference Range Interpretation [...] NOT APPLICABLE FOR DIALYSIS PATIEN TS. POCT-GLUCOSE [id number] 21:09:00 Test Item Value Reference Range Interpretation Comments POC-GLUCOSE METER 109 mg/dL 70-[address] [facility] 6720 ([facility]) (test code = [facility] 1538) [address] POCT-GLUCOSE [id number] 17:15:00 Test Item Value Reference Range Interpretation Comments POC-GLUCOSE METER 117 mg/dL 70-[address] [facility] 6720 ([facility]) (test code = [facility] 1538) [address] VITAMIN B12 AND [id number] 06:39:00 Test Item Value Reference Range Interpretation Comments VITAMIN B12 (BEAKER) (test code = 524 pg/mL 213-816 774) FOLATE (BEAKER) (test code = 362) 13.5 ng/mL >=7.0 BASIC METABOLIC [id number] 05:48:00 Test Item Value Reference Range Interpretation [...] S NOT APPLICABLE FOR DIALYSIS PATIEN TS. [id number] 15:42:00 Test Item Value Reference Range Interpretation Comments RPR SCREEN (BEAKER) (test code = Nonreactive Nonreactive 420) HEMOGLOBIN [id number] 09:14:00 Test Item Value Reference Range Interpretation Comments HEMOGLOBIN A1C (BEAKER) (test code = 5.3 % 4.3-6.1 368) TSH/FREE T4 IF [id number] 04:49:00 Test Item Value Reference Range Interpretation Comments THYROID STIMULATING HORMONE 3.18 uIU/mL 0.35-4.94 (BEAKER) (test code = 772) LIPID [id number] 04:38:00 Test Item Value Reference Range Interpretation [...] 130-159 High 160-189 Very High >=190HEPATIC FUNCTION [id number] 04:38:00 Test Item Value Reference Range Interpretation [...] Specimen slightly (test code = 347) hemolyzed BASIC METABOLIC [id number] 04:38:00 Test Item Value Reference Range Interpretation [...] S NOT APPLICABLE FOR DIALYSIS PATIEN TS. CBC (HEMOGRAM ONLY)2018-08-18 03:55:00 Test Item Value [...] (test code = 413) AFB Culture and [id number] 13:24:00Specimen/Source: Wound/PACEMAKERCollected: 09/05/2017 19:45 Status: Final Last Updated: 11/01/2017 13:24 JDC-Hmxuq-Gyikdzoavsbi (Final) (Final) 09/07/17 No acid fast bacill seen on direct smear Culture Result (Final) (Final) 11/01/17 No growth of AFB at six (6) weeksFungus Culture with [id number] 12:12:00 Specimen/Source: Wound/PACEMAKERCollected: 09/05/2017 19:45 Status: Final Last Updated: 10/22/2017 12:12 Fungal Smear Result (Final) (Final) 09/06/17 No yeast or hyphae seen Culture Result (Final) (Final) 10/22/17 No fungus isolated at 6 weeksCulture, Blood [id number] 08:23:00Specimen: BloodCollected: 09/04/2017 20:30 Status: Final Last Updated: 09/10/2017 08:23 Culture Result (Final) (Final) No Growth After 5 DaysCulture, Blood [id number] 08:23:00Specimen: BloodCollected: 09/04/2017 20:15 Status: Final Last Updated: 09/10/2017 08:23 Culture Result (Final) (Final) No Growth After 5 DaysCulture, Wound [id number] 08:52:00Specimen: WoundCollected: 09/05/2017 19:45 Status: Final Last Updated: 09/08/2017 08:52 Gram Stain (Final) (Final) 09/06/17 No organisms seen, Few WBC's Culture Result (Final) (Final) 09/08/17 Anaerobic culture:No anaerobes isolated at 3 days Isolate (Final) (Final) 09/07/17Few Staph-coag positive Isolate Staph-coag positive JERMAINE (mcg/ml) Amoxicillin/Clav (AUG)<=4/2 Susceptible Ampicillin (AM) >8 Resistant Ampicillin/Sulb (A/S) <=8/4 Susceptible Cefazolin (CFZ) <=4 Susceptible Ceftriaxone (COMMERCIAL INSURANCE UNDERWRITER) <=4 Susceptible Chloramphenicol (C) <=8 Susceptible Ciprofloxacin (CP) <=1 Susceptible Clindamycin (CM) 0.5 Susceptible Erythromycin (E) <=0.25 Susceptible Gentamicin (GM) <=1 Susceptible Imipenem (IMP) <=4 Susceptible Levofloxacin (LEV) <=0.5 Susceptible Linezolid (LNZ) 4 Susceptible Oxacillin (OX1) 0.5 Susceptible Penicillin (P) >8 Resistant Rifampin (RA) <=1 Susceptible Tetracycline (TE) <=1 Susceptible Trimethoprim/Sulfa <=0.5/9.Susceptible (SXT) 5 Vancomycin (VA) 2 SusceptibleRenal [id number] 08:51:00 Test Item Value Reference Range Interpretation [...] National Kidney Foundation,http ://nkd ep.nih.gov CBC with [id number] 07:39:00 Test Item Value Reference Range Interpretation [...] code = ALYMPH) 1.7 K/cumm 0.5-4.6 N Bacon Abs (test code = AMONO) 0.3 K/cumm 0.0-1.2 N Eos Abs (test code = AEOS) 0.29 K/cumm 0.00-0.74 N Baso Abs (test code = ABASO) 0.0 K/cumm 0.00-0.21 N Vancomycin, [id number] 12:33:00 Test Item Value Reference Range Interpretation Comments Vanco, Trou (test code = VANTR) 7.9 ug/mL 10.0-20.0 L Magnesium, [id number] 06:37:00 Test Item Value Reference Range Interpretation Comments Magnesium (test code = MG) 2.4 mg/dL 1.7-2.5 N Renal [id number] 06:29:00 Test Item Value Reference Range Interpretation [...] validated by th e MDRD study and svitlanaul d be interpretedwith caution.eGFR Re sult Interpretation: eGFR > or = 60 is in t he Normal RangeeGF R < 60 may mean kidney diseaseeGFR < 1 5 may mean kidney failureRange s recommended by the National Kidney Foundation,http ://nkd ep.nih.gov BHCG, Serum, [id number] 06:26:00 Test Item Value Reference Range Interpretation Comments Preg Qual [Se] (test code = BSHCG) Negative Negative N CBC with [id number] 06:24:00 Test Item Value Reference Range Interpretation [...] code = ALYMPH) 1.6 K/cumm 0.5-4.6 N Bacon Abs (test code = AMONO) 0.4 K/cumm 0.0-1.2 N Eos Abs (test code = AEOS) 0.18 K/cumm 0.00-0.74 N Baso Abs (test code = ABASO) 0.0 K/cumm 0.00-0.21 N XR CHEST 1 [id number] 16:29:55XR CHEST 1 VIEWLOCATION: [id number]: None.INDICATION: REVIEW PICC LINE PLACEMENTDISCUSSION:AP chest and [...] = TSH) 3.44 mIU/mL 0.270-4.200 N Lipid [id number] 05:47:00 Test Item Value Reference Range Interpretation Comments Cholesterol (test 160 mg/dL 0-200 N code = CHOL) Triglycerides (test 126 mg/dL 9-200 N code = TRIG) HDL (test code = 35 mg/dL 50-60 L HDL) Chol/HDL (test code 4.6 Ratio 0.0-4.4 H = CHOLPHDL) LDL, Calculated 100 0-130 N (NOTE)RISK O F HEART (test code = LDLC) DISEASEPu blished by [place]cuad[place] Heart AssociationAnal yte Optim al Boderline Increased RiskC HOL <200 200-239 >240TRI G <150 150-199 >200HDL Male: >60 <40HDL Female: >60 <50 LDL < 100 130-15 9 >160 LDL NEAR OPTIMAL IS 100- 129 VLDL (test code = 25 mg/dL 5-40 N VLDL) LDL/HDL (test code = 3 LDLPHDL) Basic Metabolic [id number] 05:47:00 Test Item Value Reference Range Interpretation [...] the National Kidney Foundation,http ://nkd ep.nih.gov Magnesium, [id number] 05:47:00 Test Item Value Reference Range Interpretation Comments Magnesium (test code = MG) 2.3 mg/dL 1.7-2.5 N CBC with [id number] 05:36:00 Test Item Value Reference Range Interpretation [...] code = ALYMPH) 2.2 K/cumm 0.5-4.6 N Bacon Abs (test code = AMONO) 0.3 K/cumm 0.0-1.2 N Eos Abs (test code = AEOS) 0.24 K/cumm 0.00-0.74 N Baso Abs (test code = ABASO) 0.0 K/cumm 0.00-0.21 N Partial Thromboplastin [id number] 21:26:00 Test Item Value Reference Range Interpretation Comments aPTT (test code = PTT) 29.00 seconds 24.39-37.25 N Prothrombin [id number] 21:26:00 Test Item Value Reference Range Interpretation Comments PT (test code = PT) 10.70 seconds 9.78-13.35 N INR (test code = INR) 0.95 Ratio 0.6-1.2 N Comprehensive Metabolic [id number] 21:23:00 Test Item Value Reference Range Interpretation [...] validated by th e MDRD study and svitlanaul d be interpretedwith caution.eGFR Re sult Interpretation: eGFR > or = 60 is in t he Normal RangeeGF R < 60 may mean kidney diseaseeGFR < 1 5 may mean kidney failureRange s recommended by the National Kidney Foundation,http ://nkd ep.nih.gov CBC with [id number] 21:16:00 Test Item Value Reference Range Interpretation [...] code = ALYMPH) 2.2 K/cumm 0.5-4.6 N Bacon Abs (test code = AMONO) 0.4 K/cumm 0.0-1.2 N Eos Abs (test code = AEOS) 0.17 K/cumm 0.00-0.74 N Baso Abs (test code = ABASO) 0.1 K/cumm 0.00-0.21 N
[2021-01-28] MEDS ORDERED: HYDROMORPHONE HCL 0.5 MG/0.5 ML INJ ONE (19:30)
--- NOTE | 2021-01-28 19:31 | RAD REPORT ---
EXAM DESCRIPTION: RAD - Wrist Right 3 View - 01/28/2021 7:20 pm CLINICAL HISTORY: Right wrist pain status post injury FINDINGS: No fracture or dislocation is seen. If the patient continues to have symptoms to suggest a n occult fracture then a followup plain film series in 7 days would be recommended.
--- NOTE | 2021-01-28 19:32 | RAD REPORT ---
EXAM DESCRIPTION: RAD - Forearm Right - 01/28/2021 7:20 pm CLINICAL HISTORY: Right arm pain status post fall FINDINGS: No fracture is seen.
--- NOTE | 2021-01-28 19:34 | RAD REPORT ---
EXAM DESCRIPTION: RAD - Humerus Right - 01/28/2021 7:20 pm CLINICAL HISTORY: Right arm pain status post fall FINDINGS: No fracture is seen
--- NOTE | 2021-01-28 19:52 | EDPHYS ---
Physician Documentation [facility] Name: Jenni Draper Age: 40 yrs Sex: Female : 1980 Arrival Date: 01/28/2021 Time: 17:18 Bed 12 Private MD: Diya Mora Atiq ED Physician Davion Hernandez HPI: 01/28 19:27 This 40 yrs old Female presents to ER via Ambulatory with complaints of Arm cp Pain, Fall Injury. 19:27 The patient or guardian complains of pain, that is acute, tenderness. The complaints cp affect the right arm. Context: resulted from a fall, from a standing position. Onset: The symptoms/episode began/occurred today, at 12:00. Treatment prior to arrival includes: no previous treatment. Associated signs and symptoms: Pertinent negatives: deformity, numbness. 19:28 Severity of symptoms: in the emergency department the symptoms a " 10" out of "10". 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 ca1 Historical: - Allergies: 17:57 Adhesives; ca1 17:57 Aspirin; ca1 17:57 Bactrim; ca1 17:57 Benadryl; ca1 17:57 cefixime; ca1 17:57 Cipro IV; ca1 17:57 Clindamycin; ca1 17:57 coconut oil; ca1 17:57 Demerol; ca1 17:57 Detrol; ca1 17:57 Diltiazem; ca1 17:57 Doxycycline; ca1 17:57 FISH PRODUCT DERIVATIVES; ca1 17:57 GABAPENTIN; ca1 17:57 Iodine; ca1 17:57 ivabradine; ca1 17:57 Latex, Natural Rubber; ca1 17:57 Levofloxacin; ca1 17:57 Morphine; ca1 17:57 PENICILLINS; ca1 17:57 QUETIAPINE; ca1 17:57 Seroquel; ca1 17:57 Sulfa (Sulfonamide Antibiotics); ca1 17:57 Suprax; ca1 17:57 tolterodine; ca1 17:57 tramadol; ca1 - PMHx: 17:57 Atrial Fib; Bronchitis; CHF; mitral valve prolapse; Asthma; ca1 - PSHx: 17:57 pacemaker; Hysterectomy; ca1 17:57 Cholecystectomy; ca1 - Immunization history:: Client reports receiving the 1st dose of the Covid vaccine, Flu vaccine is up to date. - Social history:: Smoking status: Patient denies any tobacco usage or history of. ROS: 19:28 Constitutional: Negative for body aches, chills, fever, poor PO intake. cp 19:28 Neck: Negative for pain with movement, pain at rest, stiffness, tenderness. 19:28 Cardiovascular: Negative for chest pain. 19:28 Respiratory: Negative for cough, shortness of breath, wheezing. 19:28 Abdomen/GI: Negative for abdominal pain, nausea, vomiting, and diarrhea. 19:28 Back: Negative for pain at rest, pain with movement. 19:28 MS/extremity: Positive for pain, of the right arm, Negative for decreased range of motion, deformity, paresthesias. 19:28 Neuro: Negative for altered mental status, loss of consciousness, syncope, weakness. 19:28 All other systems are negative. Exam: 19:29 Head/Face: Normocephalic, atraumatic. cp 19:29 Constitutional: The patient appears in no acute distress, alert, awake, non-diaphoretic, non-toxic, well developed, well nourished, uncomfortable. 19:29 Neck: ROM/movement: is normal, is supple, without pain, no range of motions limitations. 19:29 Chest/axilla: Inspection: normal. 19:29 Cardiovascular: Rate: normal. 19:29 Respiratory: the patient does not display signs of respiratory distress, Respirations: normal, no use of accessory muscles, labored breathing, is not present. 19:29 Back: pain, is absent, ROM is normal. 19:29 Musculoskeletal/extremity: Extremities: grossly normal except: noted in the right arm: pain, There is no evidence of tenderness from right shoulder extending to right wrist, decreased ROM, deformity, ROM: limited passive range of motion due to pain, in the right shoulder and right elbow and right wrist, Pulses: noted to be 2+ in the right radial artery, Sensation intact. Vital Signs: 17:54 BP 124 / 78; Pulse 88; Resp 15 S; Temp 99.2(O); Pulse Ox 99% on R/A; Weight 58.97 kg ca1 (R); Height 4 ft. 11 in. (149.86 cm) (R); Pain 9/10; 17:54 Body Mass Index 26.26 (58.97 kg, 149.86 cm) ca1 Procedures: 21:00 Splinting: Splint applied to right arm using Orthoglass splint, sling, applied by tech. cp Examined by me, post splint application: neurovascular intact, Patient tolerated well. MDM: 18:59 Patient medically screened. cp 19:32 Data reviewed: vital signs, nurses notes, radiologic studies, plain films. Test cp interpretation: by ED physician or midlevel provider: xrays of right wrist negative for fracture, xrays of right forearm negative for fracture, xrays of right humerus negative for fracture. Counseling: I had a detailed discussion with the patient and/or guardian regarding: the historical points, exam findings, and any diagnostic results supporting the discharge/admit diagnosis, radiology results, the need for outpatient follow up, a family practitioner, to return to the emergency department if symptoms worsen or persist or if there are any questions or concerns that arise at home. 01/28 18:01 Order name: Wrist Right 3 View XRAY; Complete Time: 19:46 ca1 01/28 19:47 Interpretation: Report reviewed. 01/28 18:01 Order name: Forearm Right XRAY; Complete Time: 19:46 ca1 01/28 19:47 Interpretation: Reviewed. 01/28 19:03 Order name: Humerus Right XRAY; Complete Time: 19:46 cp 01/28 19:47 Interpretation: Report reviewed. 01/28 19:26 Order name: Sling; Complete Time: 20:46 cp 01/28 19:26 Order name: Splint: right posterior long arm; Complete Time: 20:46 cp Administered Medications: 19:15 Drug: Dilaudid (HYDROmorphone) 0.5 mg {Note: rass 0.} Route: IM; Site: left deltoid; ca1 21:04 Follow up: Response: No adverse reaction; Pain is decreased iw Disposition: 21:05 Chart complete. 01/29 06:32 Co-signature as Attending Physician, Davion Hernandez MD. [email or web address] Disposition: 01/28/21 19:51 Discharged to Home. Impression: Contusion of right upper arm - from fall, Contusion of right forearm - from fall. - Condition is Stable. - Discharge Instructions: Shoulder Pain, Wrist Pain, Elbow Contusion. - Prescriptions for Tylenol- Codeine #3 300-30 mg Oral Tablet - take 2 tablets by ORAL route every 8-12 hours As needed; 15 tablet. - Medication Reconciliation Form, Thank You Letter, Antibiotic Education, Prescription Opioid Use form. - Follow up: Bakari Kim MD; When: 1 week; Reason: Recheck today's complaints. - Problem is new. - Symptoms have improved. Signatures: Dispatcher [employer] EDMS Flor Chauhan RN RN iw Caio Briones PA PA cp Mariann Woods RN RN ca1 Davion Hernandez MD MD [email or web address] Corrections: (The following items were deleted from the chart) 01/28 19:22 18:02 Elbow Right 3 View+RAD.RAD.BRZ ordered. EDNC EDNC 19:28 19:27 Onset: The symptoms/episode began/occurred today, cp cp 21:04 19:51 01/28/2021 19:51 Discharged to Home. Impression: Contusion of right upper arm - iw from fall; Contusion of right forearm - from fall. Condition is Stable. Forms are Medication Reconciliation Form, Thank You Letter, Antibiotic Education, Prescription Opioid Use. Follow up: Bakari Kim; When: 1 week; Reason: Recheck today's complaints. Problem is new. Symptoms have improved. cp
--- NOTE | 2021-01-28 19:52 | ER ---
Nurse's Notes [facility] Name: Jenni Draper Age: 40 yrs Sex: Female : 1980 Arrival Date: 01/28/2021 Time: 17:18 Bed 12 Private MD: Diya Mora Atiq Diagnosis: Contusion of right upper arm-from fall;Contusion of right forearm-from fall Presentation: 01/28 17:54 Chief complaint: Patient states: lost balance and fell, tried to catch self with R arm. ca1 Pain on R wrist, R forearm and R upper arm. Happened at noon today. Coronavirus screen: Client denies travel out of the [place] in the last 14 days. At this time, the client does not indicate any symptoms associated with coronavirus-19. Ebola Screen: Patient negative for fever greater than or equal to 101.5 degrees Fahrenheit, and additional compatible Ebola Virus Disease symptoms Patient denies exposure to infectious person. Patient denies travel to an Ebola-affected area in the 21 days before illness onset. No symptoms or risks identified at this time. Initial Sepsis Screen: Does the patient meet any 2 criteria? No. Patient's initial sepsis screen is negative. Does the patient have a suspected source of infection? No. Patient's initial sepsis screen is negative. Risk Assessment: Do you want to hurt yourself or someone else? Patient reports no desire to harm self or others. Onset of symptoms was January 28, 2021. 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 - Hysterectomy ca1 Historical: - Allergies: 17:57 Adhesives; ca1 17:57 Aspirin; ca1 17:57 Bactrim; ca1 17:57 Benadryl; ca1 17:57 cefixime; ca1 17:57 Cipro IV; ca1 17:57 Clindamycin; ca1 17:57 coconut oil; ca1 17:57 Demerol; ca1 17:57 Detrol; ca1 17:57 Diltiazem; ca1 17:57 Doxycycline; ca1 17:57 FISH PRODUCT DERIVATIVES; ca1 17:57 GABAPENTIN; ca1 17:57 Iodine; ca1 17:57 ivabradine; ca1 17:57 Latex, Natural Rubber; ca1 17:57 Levofloxacin; ca1 17:57 Morphine; ca1 17:57 PENICILLINS; ca1 17:57 QUETIAPINE; ca1 17:57 Seroquel; ca1 17:57 Sulfa (Sulfonamide Antibiotics); ca1 17:57 Suprax; ca1 17:57 tolterodine; ca1 17:57 tramadol; ca1 - PMHx: 17:57 Atrial Fib; Bronchitis; CHF; mitral valve prolapse; Asthma; ca1 - PSHx: 17:57 pacemaker; Hysterectomy; ca1 17:57 Cholecystectomy; ca1 - Immunization history:: Client reports receiving the 1st dose of the Covid vaccine, Flu vaccine is up to date. - Social history:: Smoking status: Patient denies any tobacco usage or history of. Screenin:54 Abuse screen: Denies threats or abuse. Denies injuries from another. Nutritional ca1 screening: No deficits noted. Tuberculosis screening: No symptoms or risk factors identified. Fall Risk None identified. Assessment: 18:54 General: Appears in no apparent distress. comfortable, Behavior is calm, cooperative, ca1 appropriate for age. Pain: Complains of pain in right arm Pain currently is 10 out of 10 on a pain scale. Neuro: Level of Consciousness is awake, alert, obeys commands, Oriented to person, place, time, situation. Derm: Skin is intact, is healthy with good turgor, Skin is pink, warm \T\ dry. Musculoskeletal: Circulation, motion, and sensation intact. Capillary refill < 3 seconds. Vital Signs: 17:54 BP 124 / 78; Pulse 88; Resp 15 S; Temp 99.2(O); Pulse Ox 99% on R/A; Weight 58.97 kg ca1 (R); Height 4 ft. 11 in. (149.86 cm) (R); Pain 9/10; 17:54 Body Mass Index 26.26 (58.97 kg, 149.86 cm) ca1 ED Course: 17:18 Patient arrived in ED. am2 17:18 Diya Mora MD is Private Physician. am2 17:55 Triage completed. ca1 17:57 Arm band placed on right wrist. ca1 18:54 Mariann Woods, RN is Primary Nurse. ca1 18:54 Patient has correct armband on for positive identification. Bed in low position. Call ca1 light in reach. Pulse ox on. NIBP on. 18:58 Caio Briones PA is PHCP. cp 18:58 Caio Aceves MD is Attending Physician. cp 19:18 Davion Hernandez MD is Attending Physician. cp 19:22 Wrist Right 3 View XRAY In Process Unspecified. EDMS 19:22 Forearm Right XRAY In Process Unspecified. EDMS 19:22 Humerus Right XRAY In Process Unspecified. EDMS 19:47 Bakari Kim MD is Referral Physician. cp 21:03 No provider procedures requiring assistance completed. Patient did not have IV access iw during this emergency room visit. Administered Medications: 19:15 Drug: Dilaudid (HYDROmorphone) 0.5 mg {Note: rass 0.} Route: IM; Site: left deltoid; ca1 21:04 Follow up: Response: No adverse reaction; Pain is decreased iw Outcome: 19:51 Discharge ordered by MD. cp 21:03 Discharged to home ambulatory, with family. iw 21:03 Condition: good 21:03 Discharge instructions given to patient, Instructed on discharge instructions, follow up and referral plans. medication usage, Demonstrated understanding of instructions, follow-up care, medications, Prescriptions given X 1. 21:04 Patient left the ED. iw Signatures: Dispatcher [employer] EDMS Flor hCauhan, RN RN iw Caio Briones, PA PA cp Vinita Garrison am2 Mariann Woods RN RN ca1
[2021-01-28 21:44] VITALS: BP 124/78; TEMP 99.2; O2SAT 99
== END 2021-01-28 21:04 | disposition home or self-care (01) ==
LOC: ER 17:17
PROC: 2W38X1Z Immobilization of Right Upper Extremity using Splint (ICD-10-PCS; principal; 2021-01-28)
DX: S40.021A Contusion of right upper arm, initial encounter (principal); S50.11XA Contusion of right forearm, initial encounter; W18.39XA Other fall on same level, initial encounter; Z95.0 Presence of cardiac pacemaker; Z88.0 Allergy status to penicillin; Z88.1 Allergy status to other antibiotic agents; Z88.2 Allergy status to sulfonamides; Z88.3 Allergy status to other anti-infective agents; Z88.5 Allergy status to narcotic agent; Z88.6 Allergy status to analgesic agent; Z88.8 Allergy status to other drugs, medicaments and biological substances; Z91.013 Allergy to seafood; Z91.018 Allergy to other foods; Z91.040 Latex allergy status; Z91.048 Other nonmedicinal substance allergy status
CPT/HCPCS: 73090; 73060; 73110; 96372; 99284; 29105; J1170

== ENCOUNTER 2021-02-10 16:56 | Emergency (ER) | payer MEDICAID ==
[2021-02-10] MEDS ORDERED: ALTEPLASE 100 MG/100 ML VIAL (For stroke) IV ONE (16:57)
--- OUTSIDE RECORDS SUMMARY | 2021-02-10 17:00 | XMS REPORT | Continuity of Care Document ---
:1980 Author Organization [facility] t Address [address] [place] [address] Care Team Providers Name Role Phone MILTON Primary Care Physician Unavailable Donny LARSEN, K.H. Attending Clinician Chucho BARRAGAN, A Attending Clinician Unavailable Kylee ORTEGA R Attending Clinician Mike LARSEN Attending Clinician Nevaeh BARRAGAN Attending Clinician Unavailable Radha FONG S Attending Clinician Malena VEGA Attending Clinician LEONOR Attending Clinician Unavailable SRUTHIAR Attending Clinician Unavailable Mike LARSEN Admitting Clinician LEONOR Admitting Clinician Unavailable LINETTE Admitting Clinician Unavailable Payers Payer Name Policy [...] [facility] ins 1-04 [place] 00:00: d 00 [facility] Sulfa DA Active MO 2020-0 [facility] (Sulfona - [place] mide 00:00: d Antibiot 00 [facility] Fish FA Active SV 2020-0 [facility] Containi 1-04 [place] ng 00:00: d Products 00 [facility] iodine DA Active MO 2020-0 [facility] 1-04 [place] 00:00: d 00 [facility] morphine DA Active SV 2020-0 [facility] 1-04 [place] 00:00: d 00 [facility] aspirin DA Active SV 2020-0 [facility] 1-04 [place] 00:00: d 00 [facility] cephalex DA Active SV 2020-0 [facility] in 1-04 [place] 00:00: d 00 [facility] cefixime DA Active MO 2020-0 [facility] 1-04 [place] 00:00: d 00 [facility] doxycycl DA Active SV 2020-0 [facility] ine 1-04 [place] 00:00: d 00 [facility] clindamy DA Active MO 2020-0 [facility] stephan 1-04 [place] 00:00: d 00 [facility] sulfamet DA Active MO 2020-0 [facility] hoxazole 1-04 [place] 00:00: d 00 [facility] trimetho DA Active MO 2020-0 [facility] prim 1-04 [place] 00:00: d 00 [facility] ciproflo DA Active SV 2020-0 [facility] xacin 1-04 [place] 00:00: d 00 [facility] adhesive DA Active SV 2020-0 [facility] tape 1-04 [place] 00:00: d 00 [facility] tramadol DA Active SV 2020-0 [facility] 1- [place] 00:[facility]: d 00 [facility] gabapent DA Active SV 2020-0 [facility] in 09-28 [place] 00:00: d 00 [facility] diltiaze DA Active SV 2020-0 [facility] m - [place] 00:[facility]: d 00 [facility] diphenhy DA Active SV 2020-0 [facility] dramine 09-28 [place] 00:00: d 00 [facility] topirama DA Active SV 2020-0 [facility] te 09-28 [place] 00:00: d 00 [facility] levoflox DA Active SV 2020-0 [facility] acin 09-28 [place] 00:00: d 00 [facility] quetiapi DA Active MO 2020-0 [facility] ne 09-28 [place] 00:00: d 00 [facility] tolterod DA Active MO 2020-0 [facility] ine 09-28 [place] 00:00: d 00 [facility] latex DA Active SV 2020-0 [facility] - [place] 00:00: d 00 [facility] ivabradi DA Active MO 2020-0 [facility] ne 09-28 [place] 00:00: d 00 [facility] coconut FA Active MO 2020-0 [facility] - [place] 00:[facility]: d 00 [facility] Iodine [...] adverse 00:00: confusion Medica l reaction 00 [facility] Propensi Active Rash 2017-[address] [facility] [facility] 10-17 [facility] - adverse 00:[facility]: Medical reaction 00 Center s Gabapent Propensi Active Shortness Of 2017-[address] in ty to Breath, Rash 10-17 [facility] - adverse 00:00: Medical reaction 00 Center s Social History Social Habit Start Date Stop Date Quantity Comments [facility] Dr[facility] odist Alcohol Binge Sex Assigned At [facility] History SDOH 2018-09-05 2018-09-05 1 [place] Alcohol Frequency 00:00:00 00:00:00 Tobacco use and 2018-09-04 2018-09-04 Never used [place] M ethodist exposure 00:00:00 00:00:00 Alcohol intake 2018-08-18 2018-08-18 [facility] (finding) Smoking Status Start Date Stop Date Source Former smoker 2018-09-04 00:00:00 2018-09-04 00:00:00 [facility] [facility] Medications Ordered Filled Start Stop Current Ordering Indication Dosage Frequency Signature Comments Components Source Medication Medication Date Date Medication? Clinician (SIG) Name Name digOXIN 2017-09 Yes 125ug QD Take 125 [place] (LANOXIN) 2-11 mcg by [facility] 125 mcg 19:13: mouth st tablet 58 daily. ARIPiprazol 2017-09 Yes 5mg QD Take 5 mg [place] (ABILIFY) 2-11 by mouth Meth jamie 5 MG tablet 19:13: daily. st 27 benztropine 2017-09 Yes 1mg Q.5D Take 1 mg [place] (COGENTIN) 2-11 by mouth 2 Met hodi 1 MG tablet 19:13: (two) st 27 times a day. busPIRone 2017-09 Yes 15mg Q.[id number] Take 15 mg [facility] (BUSPAR) 10 2-11 [id number] by mouth 3 [facility] MG tablet 19:13: 3D (three) st 27 times a day. ARIPiprazol 2017-09 Yes 10mg QD Take 10 mg [facility] e (ABILIFY) 2-11 by mouth Meth jamie 10 MG 19:13: daily. st tablet 27 albuterol 2017-09 Yes 1{ampul Q.12346985 Take [address] (ACCUNEB) 1-27 e} [id number] ampule by [facility] - 1.25 mg/3 13:20: [...] 13:20: with mouth Medical 58 Chronic daily. [facility] Bronchitis digoxin 2017-09 Yes 125ug QD Take 125 [facility] (LANOXIN) 1-27 mcg by [facility] - 0.125 MG 13:20: mouth Medical tablet 58 daily. [facility] venlafaxine 2017-09 Yes 150mg QD Take [address] (EFFEXOR-XR 1-27 mg by [facility] - ) 150 MG 24 13:20: mouth Medic al hr capsule 58 daily. [facility] apixaban 2017-09 Yes 5mg QD Take [address] (ELIQUIS) 5 1-27 by mouth [facility] - mg Tab 13:20: daily. Medical tablet 58 [facility] levETIRAcet 2017-09 Yes 1000mg Q.5D Take 1,000 [...] 10 mg 13:20: daily. Medical tablet 58 [facility] pregabalin 2017-09 Yes 25mg QD Take [address] (LYRICA) 25 1-27 by mouth [facility] - MG capsule 13:20: nightly. Med ical 58 [facility] triamcinolo 2017-09 Yes 2{spray QD [address] ne 1-27 } by Nasal [facility] - (NASACORT) 13:20: route Medica l 55 mcg 58 daily. [facility] nasal inhaler esomeprazol 2017-09 Yes 40mg QD Take [address] [facility] (NEXIUM) 1-27 by mouth [facility] - 40 MG 13:20: daily. Medical capsule 58 Center albuterol 2017-09 Yes 2{puff} Inhale [address] HFA 1-27 puffs by [facility] - (VENTOLIN 13:20: mouth via Med ical HFA) 90 58 inhaler. [facility] mcg/actuati on inhaler ranolazine 2017-09 Yes 500mg [...] s - 5 MG tablet 13:20: nightly. Ak dical 57 Center Procedures This patient has no known procedures. Plan of Care Planned Activity Planned Date Details Comments Source Future Scheduled 2021-05-[address] [facility] - Test 00:00:00 (Season Ended) [code Medical Center = INFLUENZA VACCINE (Season Ended)] Future Scheduled 2021-04-25 INFLUENZA VACCINE [place] [facility] Test 00:00:00 [code = INFLUENZA VACCINE] Future Scheduled 2020-09-[address] [facility] - Test 00:00:00 (12+) [code = [facility] DEPRESSION SCREENING (12+)] Future Scheduled 2002 Screening for [facility] Test 00:00:00 malignant neoplasm of cervix (procedure) [code = 124163332] Future Scheduled [address] [facility] - Test 00:00:00 malignant neoplasm Medical C enter of cervix (procedure) [code = 142185773] Future Scheduled 2000 DTAP/TDAP/TD [facility] - Test 00:00:00 VACCINES (1 - Tdap) Medical Center [code = DTAP/TDAP/TD VACCINES (1 - Tdap)] Future Scheduled [address] [facility] - Test 00:00:00 SCREENING [code = Medical Ce nter HEPATITIS C SCREENING] Future Scheduled 1993 COVID-19 VACCINE (1) [facility] Test 00:00:00 [code = COVID-19 VACCINE (1)] Encounters Start End Encounter Admission Attending Care Care Encounter Source Date/Time Date/Time Type Type Clinicians Facility Department ID 2021-02-10 2021-02-10 Telephone Donny [facility] [id number] 00:00:00 00:00:00 Navi [place] [id number] [place] 4.2.7.2.686 Professio [id number] [address] 2021-02-10 2021-02-10 Nurse NURYS Rankin [id number] 00:00:00 00:00:00 Triage Carmen [place] [facility] [id number] [facility] 4.7.2.686 [id number] 2021-01-25 2021-01-25 Refill Donny [facility] [id number] 00:00:00 00:00:00 Navi Stafford [id number] [place] 4.2.7.2.686 [facility] [id number] [address] 2021-01-11 2021-01-12 Emergency PichardoLilia wilde [facility] 1.2.840. [id number] 20:43:00 04:47:00 Malika Mckeon [id number] [place] 4.2.7.2.686 [place] [id number] 2021-01-11 2021-01-11 Nurse NURYS Herring [id number] 00:00:00 00:00:00 Triage Dayana [facility] [id number] [facility] 4.2.7.2.686 [id number] 2020-11-13 2020-11-13 [facility] [id number] 17:55:00 22:25:00 Lillie [place] [id number] [place] 4.2.7.2.686 [place] [id number] 2020-11-05 2020-11-05 Office Guy [facility] [id number] 14:22:39 15:26:25 Visit Tucker [place] [id number] [place] 4.2.7.2.686 Professio [id number] [facility] 2017-09-06 2017-09-08 LTAC, located within [facility] [id number] [address] 10:12:00 02:32:00 [facility] Results Test Description Test Time Test Comments Results Result Comments Source SURG 2020-09-30 15:45:00 Test Item Value Reference Range Interpretation Commramin lutz SURG RUN DATE: (test 09/30/20 H [facility] PAGE 1 RUN TIME: 1547 code = Specimen Inquiry RUN USER: INTERFACE SURG) PATIENT: ADAM MARSH LOC: [place] U #: [id number] AGE/SX: 40/ F ROOM: RE/05/21REG DR: Linus Boone MD : 82 BED: DIS: STATUS: DANNY [facility] TLOC: SPEC #: [id number] RECD: STATUS: MACIEL REQ #: [id number] WU: 09/29/[address]: Linus Boone MD ENTERED: 09/29/20 SP TYPE: SURG OTHR DR: Yessica snow Provider ORDERED: SURG PATH LVL 4 COPIES TO: Linus Boone MD [address] [place] [id number] Undefined Provider HISTOLOGY: TISSUE ID BLK PCS DHIRAJ LEV PROCEDURE DISPOSIT ION ____ ___ ___ ___ STOMACH, NOS A 1 2 PROCEDURES: SURG PATH LVL 4 (09/29/20) TISSUES: A. STOMAC H, NOS - GASTRIC BIOPSY CLINICAL HISTORY R10.13, K21.9, K92.0, R14.0, R11.2, R19.7, R19.4 CPT CODES CPT CODE(S): 09631 , , , , , , FINAL DIAGNOSIS Stomach, biopsy: MILD CHRONIC GASTRITIS NEGATIVE FOR INT ESTINAL METAPLASIA, DYSPLASIA, OR MALIGNANCY NEGATIVE FOR HELICOBACTER PYLORI ORGANISMS CIELO S DESCRIPTION Gastric biopsy. Received in formalin are two wilkinson tissue fragments, 0.4 cm each, al l as A. bk/nr Grossing performed at [facility] Pathology, [address] [place] [address], [address], [place] [address]. Oracle Programmer Analyst: Aditya Hanson M.D. CONTINUED ON NEXT PAGE RUN DATE: 09/30/20 Shauna [facility] [place] - LAB PAGE 2 RUN TIME: 154 Specimen Inquiry RUN USER: INTERFACE SPEC #: PMC:S-- PATIENT: ADAM MARSH YOKO #[id number] (Continued) MICROSCOPIC DESCRIPTION Gastric biopsy. Sections demonstrate gastric mucosa with mild chronic inflammation. No dysplasia or malignancy is identified. No evidence of Helicobacter pylori organisms or intestinal metaplasia is seen. Signed SIGNATURE ON FILE Gilmer Issa 09/30/20 1545 END OF REPORT COVID 19 INHOUSE [id number] 13:41:00 Test Item Value Reference Range Interpretation Comments COVID 19 INHOUSE AG NEGATIVE Negative Per manu facturer, (test code = negative result s should [id number]) be treated aspr esumptive and, if inconsi [...] symptoms co nsistent with COVID-19. BASIC METABOLIC [id number] 13:40:00 Test Item Value Reference Range Interpretation [...] MG/DL 8.5-10.1 N - XR CHEST 1 [id number] 13:33:00 [facility] 1980 Sex: F Name: ADAM MARSH [facility] : [birth year] Age/S: 40 / F [id number] [place] Unit #: [id number] Loc: [place] [address] Phys: Linus Boone MD Acct: [id number] Dis Date: Status: PRE [facility] PHONE #: [phone] Exam Date: 09/28/2020 1326 FAX #: Reason: PREOP EXAMS: CPT: [id number] XR CHEST 1 V 74016 Fluoro Time: DAP (Gy m2): Air Kerma [...] PAGE 1 Signed Report Name: ADAM MARSH [facility] : 1980 Age/S: 40 / F [id number] [place] Unit #: [id number] Loc: [place] [address] Phys: Linus Boone MD Acct: [id number] Dis Date: Status: PRE [facility] PHONE #: [phone] Exam Date: 09/28/2020 1326 FAX #: Reason: PREOP EXAMS: CPT: [id number] XR CHEST 1 V 29703 Fluoro Time: DAP (Gy m2): Air Kerma (mGy): <Continued> Technologist: Shari Davila RT(R)(CT) Trnscb Date/Time: 09/28/2020 (6468) JulissaMD16 Orig Print D/T: S: 09/28/2020 (6735) PAGE 2 SignedReportPROTHROMBIN [id number] 13:29:00 Test Item Value Reference Range Interpretation Comments PT PATIENT (test code = PTP) 10.6 SECONDS 9.3-12.9 N INTERNATIONAL NORMAL RATIO 0.95 INR Unit 0.8-1.2 N (test code = INR) THROMBOPLASTIN TIME [id number] 13:29:00 Test Item Value Reference Range Interpretation Comments THROMBOPLASTIN TIME PARTIAL 28.0 SECONDS 26-35 N (test code = PTT) CBC W/AUTO [id number] 13:26:00 Test Item Value Reference Range Interpretation [...] code NO DIFF/SCN CRITERIA = MDIFF) POCT-GLUCOSE [id number] 10:22:00 Test Item Value Reference Range Interpretation Comments POC-GLUCOSE METER 102 mg/dL 70-110 TESTED AT [facility] (test code = AYLIN SWAN [place] 1538) [address] MR, MRA, BRAIN, WITHOUT [id number] 09:32:00Reason for exam:->Ischemic Stroke EvaluationFINAL REPORT MRA Head CLINICAL HISTORY: Ischemic Stroke TECHNIQUE: MRA of the head utilizing 3-D qseg-fb-zurfjj technique, with 3-D reconstructions. COMPARISON: None FINDINGS: There is no evidence of intracranial aneurysm, focal stenosis, or major branch vessel occlusion. IMPRESSION: No evidence for a major southern [place] proximal branch vessel occlusion. MRA Neck CLINICAL HISTORY: Ischemic Stroke TECHNIQUE: MRA of the neck utilizing 2-D and 3-D zemi-gz-bjnrrl technique, with 3-D reconstructions. COMPARISON: None FINDINGS: The carotid arteries in the neck are patent including their bifurcations. There is antegrade flow in the vertebral arteries in the neck. IMPRESSION: No evidence of hemodynamically significant stenosis in the cervical carotid or vertebral arteries by NASCET criteria. Signed: Santos Winn Verified Date/Time: 08/21/2018 09:32:09 Reading Location: [address] Neuro Reading Room MR, MRA, NECK, WITHOUT IV [id number] 09:32:00Reason for exam:->Ischemic Stroke EvaluationFINAL REPORT MRA Head CLINICAL HISTORY: Ischemic Stroke TECHNIQUE: MRA of the head utilizing 3-D ecbo-fg-exaftb technique, with 3-D reconstructions. COMPARISON: None FINDINGS: There is no evidence of intracranial aneurysm, focal stenosis, or major branch vessel occlusion. IMPRESSION: No evidence for a major southern [place] proximal branch vessel occlusion. MRA Neck CLINICAL HISTORY: Ischemic Stroke TECHNIQUE: MRA of the neck utilizing 2-D and 3-D slpo-ay-atjgxp technique, with 3-D reconstructions. COMPARISON: None FINDINGS: The carotid arteries in the neck are patent including their bifurcations. There is antegrade flow in the vertebral arteries in the neck. IMPRESSION: No evidence of hemodynamically significant stenosis in the cervical carotid or vertebral arteries by NASCET criteria. Signed: Santos Winn Verified Date/Time: 08/21/2018 09:32:09 Reading Location: [address] Neuro Reading Room MR, BRAIN, WITHOUT [id number] 09:25:00Reason for exam:- >Ischemic Stroke EvaluationFINAL REPORT [...] Winn Verified Date/Time: 08/21/2018 09:25:25 Reading Location: [facility] C013V Neuro R ding Room POCT-GLUCOSE [id number] 21:26:00 Test Item Value Reference Range Interpretation Comments POC-GLUCOSE METER 119 mg/dL 70-110 H TESTED AT [place] [address] ([facility]) (test code = AYLIN Rivera [facility] 1538) [address] POCT-GLUCOSE [id number] 18:03:00 Test Item Value Reference Range Interpretation Comments POC-GLUCOSE METER 119 mg/dL 70-110 H TESTED AT [place] [address] ([facility]) (test code = AYLIN Rivera [facility] 1538) [address] POCT-GLUCOSE [id number] 12:39:00 Test Item Value Reference Range Interpretation Comments POC-GLUCOSE METER 120 mg/dL 70-110 H TESTED AT [place] [address] ([facility]) (test code = AYLIN Rivera [facility] 1538) [address] RAD, CHEST, 1 VIEW, NON [id number] 12:04:00Reason for exam:->To Locate Heart Device (Pacemaker)Should [...] MDReport Verified Date/Time: 08/20/2018 12:04:06 Reading Location: [facility] Reading Room POCT-GLUCOSE [id number] 09:17:00 Test Item Value Reference Range Interpretation Comments POC-GLUCOSE METER 121 mg/dL 70-110 H TESTED AT [place] [address] (BEAKER) (test code = [facility] 1538) [address] BASIC METABOLIC [id number] 06:56:00 Test Item Value Reference Range Interpretation [...] NOT APPLICABLE FOR DIALYSIS PATIEN TS. POCT-GLUCOSE [id number] 21:09:00 Test Item Value Reference Range Interpretation Comments POC-GLUCOSE METER 109 mg/dL 70-110 TESTED AT [place] [id number] (BEAKER) (test code = [facility] 1538) [address] POCT-GLUCOSE [id number] 17:15:00 Test Item Value Reference Range Interpretation Comments POC-GLUCOSE METER 117 mg/dL 70-110 H TESTED AT [place] [address] (BEAKER) (test code = [facility] 1538) [address] VITAMIN B12 AND [id number] 06:39:00 Test Item Value Reference Range Interpretation Comments VITAMIN B12 (BEAKER) (test code = 524 pg/mL 213-752 514) FOLATE (BEAKER) (test code = 362) 13.5 ng/mL >=7.0 BASIC METABOLIC [id number] 05:48:00 Test Item Value Reference Range Interpretation [...] S NOT APPLICABLE FOR DIALYSIS PATIEN TS. [id number] 15:42:00 Test Item Value Reference Range Interpretation Comments RPR SCREEN (BEAKER) (test code = Nonreactive Nonreactive 420) HEMOGLOBIN [id number] 09:14:00 Test Item Value Reference Range Interpretation Comments HEMOGLOBIN A1C (BEAKER) (test code = 5.3 % 4.3-6.1 368) TSH/FREE T4 IF [id number] 04:49:00 Test Item Value Reference Range Interpretation Comments THYROID STIMULATING HORMONE 3.18 uIU/mL 0.35-4.94 (BEAKER) (test code = 772) BASIC METABOLIC [id number] 04:38:00 Test Item Value Reference Range Interpretation [...] NOT APPLICABLE FOR DIALYSIS PATIEN TS. LIPID [id number] 04:38:00 Test Item Value Reference Range Interpretation [...] 130-159 High 160-189 Very High >=190HEPATIC FUNCTION [id number] 04:38:00 Test Item Value Reference Range Interpretation [...] (test code = 413) AFB Culture and [id number] 13:24:00Specimen/Source: Wound/PACEMAKERCollected: 09/05/2017 19:45 Status: Final Last Updated: 11/01/2017 13:24 KTJ-Nqbhc-Dlfmvazqidcu (Final) (Final) 09/07/17 No acid fast bacill seen on direct smear Culture Result (Final) (Final) 11/01/17 No growth of AFB at six (6) weeksFungus Culture with [id number] 12:12:00 Specimen/Source: Wound/PACEMAKERCollected: 09/05/2017 19:45 Status: Final Last Updated: 10/22/2017 12:12 Fungal Smear Result (Final) (Final) 09/06/17 No yeast or hyphae seen Culture Result (Final) (Final) 10/22/17 No fungus isolated at 6 weeksCulture, Blood [id number] 08:23:00Specimen: BloodCollected: 09/04/2017 20:30 Status: Final Last Updated: 09/10/2017 08:23 Culture Result (Final) (Final) No Growth After 5 DaysCulture, Blood [id number] 08:23:00Specimen: BloodCollected: 09/04/2017 20:15 Status: Final Last Updated: 09/10/2017 08:23 Culture Result (Final) (Final) No Growth After 5 DaysCulture, Wound [id number] 08:52:00Specimen: WoundCollected: 09/05/2017 19:45 Status: Final Last Updated: 09/08/2017 08:52 Gram Stain (Final) (Final) 09/06/17 No organisms seen, Few WBC's Culture Result (Final) (Final) 09/08/17 Anaerobic culture:No anaerobes isolated at 3 days Isolate (Final) (Final) 09/07/17Few Staph-coag positive Isolate Staph-coag positive JERMAINE (mcg/ml) Amoxicillin/Clav (AUG)<=4/2 Susceptible Ampicillin (AM) >8 Resistant Ampicillin/Sulb (A/S) <=8/4 Susceptible Cefazolin (CFZ) <=4 Susceptible Ceftriaxone (HOP GROWER) <=4 Susceptible Chloramphenicol (C) <=8 Susceptible Ciprofloxacin (CP) <=1 Susceptible Clindamycin (CM) 0.5 Susceptible Erythromycin (E) <=0.25 Susceptible Gentamicin (GM) <=1 Susceptible Imipenem (IMP) <=4 Susceptible Levofloxacin (LEV) <=0.5 Susceptible Linezolid (LNZ) 4 Susceptible Oxacillin (OX1) 0.5 Susceptible Penicillin (P) >8 Resistant Rifampin (RA) <=1 Susceptible Tetracycline (TE) <=1 Susceptible Trimethoprim/Sulfa <=0.5/9.Susceptible (SXT) 5 Vancomycin (VA) 2 SusceptibleRenal [id number] 08:51:00 Test Item Value Reference Range Interpretation [...] National Kidney Foundation,http :[email or web address] ep.nih.gov CBC with [id number] 07:39:00 Test Item Value Reference Range Interpretation [...] code = ALYMPH) 1.7 K/cumm 0.5-4.6 N [place] Abs (test code = AMONO) 0.3 K/cumm 0.0-1.2 N Eos Abs (test code = AEOS) 0.29 K/cumm 0.00-0.74 N Baso Abs (test code = ABASO) 0.0 K/cumm 0.00-0.21 N Vancomycin, [id number] 12:33:00 Test Item Value Reference Range Interpretation Comments Melony Harman (test code = VANTR) 7.9 ug/mL 10.0-20.0 L Magnesium, [id number] 06:37:00 Test Item Value Reference Range Interpretation Comments Magnesium (test code = MG) 2.4 mg/dL 1.7-2.5 N Renal [id number] 06:29:00 Test Item Value Reference Range Interpretation [...] National Kidney Foundation,http :[email or web address] ep.nih.gov BHCG, Serum, [id number] 06:26:00 Test Item Value Reference Range Interpretation Comments Preg Qual [Se] (test code = BSHCG) Negative Negative N CBC with [id number] 06:24:00 Test Item Value Reference Range Interpretation [...] code = ALYMPH) 1.6 K/cumm 0.5-4.6 N [place] Abs (test code = AMONO) 0.4 K/cumm 0.0-1.2 N Eos Abs (test code = AEOS) 0.18 K/cumm 0.00-0.74 N Baso Abs (test code = ABASO) 0.0 K/cumm 0.00-0.21 N XR CHEST 1 [id number] 16:29:55XR CHEST 1 VIEWLOCATION: [id number]: None.INDICATION: REVIEW PICC LINE PLACEMENTDISCUSSION:AP chest and [...] = TSH) 3.44 mIU/mL 0.270-4.200 N Lipid [id number] 05:47:00 Test Item Value Reference Range Interpretation Comments Cholesterol (test 160 mg/dL 0-200 N code = CHOL) Triglycerides (test 126 mg/dL 9-200 N code = TRIG) HDL (test code = 35 mg/dL 50-60 L HDL) Chol/HDL (test code 4.6 Ratio 0.0-4.4 H = CHOLPHDL) LDL, Calculated 100 0-130 N (NOTE)RISK O F HEART (test code = LDLC) DISEASEPu blished by [place] Heart AssociationAnal yte Optim al Boderline Increased RiskC HOL <200 200-239 >240TRI G <150 150-199 >200HDL Male: >60 <40HDL Female: >60 <50 LDL < 100 130-15 9 >160 LDL NEAR OPTIMAL IS 100- 129 VLDL (test code = 25 mg/dL 5-40 N VLDL) LDL/HDL (test code = 3 LDLPHDL) Basic Metabolic [id number] 05:47:00 Test Item Value Reference Range Interpretation [...] the National Kidney Foundation,http :[email or web address] ep.nih.gov Magnesium, [id number] 05:47:00 Test Item Value Reference Range Interpretation Comments Magnesium (test code = MG) 2.3 mg/dL 1.7-2.5 N CBC with [id number] 05:36:00 Test Item Value Reference Range Interpretation [...] code = ALYMPH) 2.2 K/cumm 0.5-4.6 N [place] Abs (test code = AMONO) 0.3 K/cumm 0.0-1.2 N Eos Abs (test code = AEOS) 0.24 K/cumm 0.00-0.74 N Baso Abs (test code = ABASO) 0.0 K/cumm 0.00-0.21 N Partial Thromboplastin [id number] 21:26:00 Test Item Value Reference Range Interpretation Comments aPTT (test code = PTT) 29.00 seconds 24.39-37.25 N Prothrombin [id number] 21:26:00 Test Item Value Reference Range Interpretation Comments PT (test code = PT) 10.70 seconds 9.78-13.35 N INR (test code = INR) 0.95 Ratio 0.6-1.2 N Comprehensive Metabolic [id number] 21:23:00 Test Item Value Reference Range Interpretation [...] National Kidney Foundation,http :[email or web address] ep.nih.gov CBC with [id number] 21:16:00 Test Item Value Reference Range Interpretation [...] code = ALYMPH) 2.2 K/cumm 0.5-4.6 N [place] Abs (test code = AMONO) 0.4 K/cumm 0.0-1.2 N Eos Abs (test code = AEOS) 0.17 K/cumm 0.00-0.74 N Baso Abs (test code = ABASO) 0.1 K/cumm 0.00-0.21 N
--- NOTE | 2021-02-10 17:40 | RAD REPORT ---
EXAM DESCRIPTION: CT - Ct Stroke Brain Wo Cont - 02/10/2021 5:32 pm CLINICAL HISTORY: left sided weakness/numbness Headache, drowsiness COMPARISON: Head Brain Wo Cont dated 08/17/2018; HEAD BRAIN W O CONTRAST dated 10/24/2008 TECHNIQUE: All CT scans are performed using dose optimization technique as appropriate and may inclu de automated exposure control or mA/KV adjustment according to patient size. FINDINGS: No intracranial hemorrhage, hydrocephalus or extra-axial fluid collection.No areas of brai n edema or evidence of midline shift. The paranasal sinuses and mastoids are clear. The calvarium is intact. IMPRESSION: No acute intracranial abnormality. The findings were discussed with Dr. Robbins in the ER On 02/10/2021 at 5:37 p.m. by telephone.
[2021-02-10 17:59] LABS: Basophils % 0.9 % (0-1.3); Hematocrit 44.1 % (36.0-45.0); Lymphocytes % 33.9 % (15.3-44.8); MPV 8.5 fL (7.6-11.3); RBC Red Blood Cell Count 5.03 M/uL (3.86-4.86)
--- NOTE | 2021-02-10 18:00 | EDPHYS ---
Physician Documentation [facility] Name: Jenni Draper Age: 40 yrs Sex: Female : 1980 Arrival Date: 02/10/2021 Time: 16:57 Bed 14 Private MD: Diya Mora Atiq ED Physician Tanner Robbins HPI: 02/10 17:21 This 40 yrs old Female presents to ER via Wheelchair with complaints of Chest rn Pain, Numbness - left side. 17:22 Pt reports sudden onset left sided weakness and numb, happened approx 1 hour prior to rn arrival, + hx of CVA a few years ago that resolved, not improving. Reports can't feel or move her left side very well. No recent trauma/surgery. Got moderna shot this week. Also reports 10 min of sharp left sided chest pain, no sob. . 17:25 The patient presents to the emergency department with weakness of the left upper rn extremity, left lower extremity, paresthesias of the left lower extremity, left upper extremity. Onset: The symptoms/episode began/occurred 1 hour(s) ago. Associated signs and symptoms: Pertinent positives: paresthesias, weakness, Pertinent negatives: fever. Severity of symptoms: At their worst the symptoms were moderate in the emergency department the symptoms are unchanged. Current symptoms: paralysis or paresis, that is moderate. The patient has experienced a previous episode. 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 LMP N/A - Hysterectomy zb Historical: - Allergies: 17:04 Adhesives; ll1 17:04 Aspirin; ll1 17:04 Bactrim; ll1 17:04 Benadryl; ll1 17:04 cefixime; ll1 17:04 Cipro IV; ll1 17:04 Clindamycin; ll1 17:04 coconut oil; ll1 17:04 Demerol; ll1 17:04 Detrol; ll1 17:04 Diltiazem; ll1 17:04 Doxycycline; ll1 17:04 FISH PRODUCT DERIVATIVES; ll1 17:04 GABAPENTIN; ll1 17:04 Iodine; ll1 17:04 ivabradine; ll1 17:04 Latex, Natural Rubber; ll1 17:04 Levofloxacin; ll1 17:04 Morphine; ll1 17:04 QUETIAPINE; ll1 17:04 Seroquel; ll1 17:04 Sulfa (Sulfonamide Antibiotics); ll1 17:04 Suprax; ll1 17:04 tolterodine; ll1 17:04 tramadol; ll1 17:04 PENICILLINS; ll1 - PMHx: 17:04 Asthma; Atrial Fib; mitral valve prolapse; CHF; Bronchitis; ll1 - PSHx: 17:04 pacemaker; Hysterectomy; Cholecystectomy; ll1 - Immunization history:: Flu vaccine is up to date. - Social history:: Smoking status: Patient denies any tobacco usage or history of. - Family history:: not pertinent. - Hospitalizations: : No recent hospitalization is reported. ROS: 17:25 Constitutional: Negative for fever, chills, and weight loss, Eyes: Negative for injury, rn pain, redness, and discharge, Neck: Negative for injury, pain, and swelling, Cardiovascular: Negative for palpitations, and edema, Respiratory: Negative for shortness of breath, cough, wheezing, and pleuritic chest pain, Abdomen/GI: Negative for abdominal pain, nausea, vomiting, diarrhea, and constipation, Back: Negative for injury and pain, MS/Extremity: Negative for injury and deformity, Skin: Negative for injury, rash, and discoloration, Neuro: Negative for headache, and seizure. 17:25 All other systems are negative. rn Exam: 17:25 Constitutional: This is a well developed, well nourished patient who is awake, alert, rn seems frustrated Head/Face: Normocephalic, atraumatic. Eyes: Periorbital areas with no swelling, redness, or edema. ENT: dry MM Cardiovascular: Tachycardic, regular Respiratory: No increased work of breathing, no retractions or nasal flaring. Abdomen/GI: soft, non-tender, no enlarged pulsatile mass Skin: Warm, dry MS/ Extremity: Pulses equal, no cyanosis. Neuro: Awake, alert, GCS 15, RUE/RLE 5/5 strength, LUE/LLE 3+/5 with drift, does not hit bed at end of time. + decreased sensation to pinprick LUE and LLE. + Baseline moderate slurred speech. Vital Signs: 17:02 BP 139 / 97; Pulse 124; Resp 18; Temp 97.6; Pulse Ox 98% ; Weight 58.97 kg; Height 4 ll1 ft. 11 in. 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 . MDM: 17:11 Patient medically screened. rn 17:39 ED course: Юлия Ro reports CT head stroke protocol without acute findings. Will rn consent and give TPA. 17:51 ED course: Provider that saw her 2 weeks ago here, confirms that at that visit was rn using left side of body fine.. 17:57 Data reviewed: vital signs, nurses notes, radiologic studies, CT scan. ED course: Pt rn and confirm that has not had eliquis for 3 days now. Spoke with [facility] Stroke doctor stock controller, state [place] to give TPA given off eliquis for 3 days, otherwise would have been a contraindication. Accepted for transfer to [facility]. . 02/10 17:20 Order name: Troponin (emerg Dept Use Only) rn 02/10 17:20 Order name: Basic Metabolic Panel rn 02/10 17:20 Order name: CBC with Diff rn 02/10 17:20 Order name: Protime (+inr) rn 02/10 17:20 Order name: Ptt, Activated rn 02/10 17:23 Order name: COVID-19 : Document "Date of Symptom Onset" if Symptomatic. bd 02/10 17:20 Order name: CT Stroke Brain w/o Contrast rn 02/10 18:01 Order name: CBC with Automated Diff EDMS 02/10 18:03 Order name: Glucose, Ancillary Testing EDCA 02/10 18:13 Order name: Protime (+INR) EDCA 02/10 18:13 Order name: PTT, Activated Partial Thromb EDCA 02/10 18:29 Order name: Basic Metabolic Panel EDCA 02/10 18:29 Order name: Troponin (Emerg Dept Use Only) EDCA 02/10 18:43 Order name: CORONAVIRUS EDCA 02/10 17:20 Order name: Stroke CXR 1 View rn 02/10 17:20 Order name: EKG; Complete Time: 17:21 rn 02/10 17:20 Order name: Accucheck; Complete Time: 00:08 rn 02/10 17:20 Order name: Cardiac monitoring; Complete Time: 19:07 rn 02/10 17:20 Order name: EKG - Nurse/Tech; Complete Time: 19:07 rn 02/10 17:20 Order name: IV Saline Lock; Complete Time: 19: rn 02/10 17:20 Order name: Labs collected and sent; Complete Time: 19: rn 02/10 17:20 Order name: NPO; Complete Time: 19: rn 02/10 17:20 Order name: O2 Per Protocol; Complete Time: 19: rn 02/10 17:20 Order name: O2 Sat Monitoring; Complete Time: 19:07 rn 02/10 17:20 Order name: Stroke Swallow Screen; Complete Time: 00:08 rn 02/10 17:41 Order name: CT; Complete Time: 18:00 [facility] 02/10 18:43 Order name: RAD [facility] Administered Medications: 18:04 Drug: ACTIvase (alteplase) {Co-Signature: aa5 (Geena Angeles RN).} Route: IV zb Thrombolytics; Rate: calculated rate; Infused Over: 60 mins; 19:04 Follow up: Response: No adverse reaction; Marked relief of symptoms zb Disposition: 02/10/21 18:00 Transfer ordered to [facility]. Diagnosis are Weakness, Cerebral infarction, Paresthesia of skin. - Reason for transfer: Higher level of care. - Accepting physician is . - Condition is Stable. - Problem is new. - Symptoms are unchanged. Critical care time excluding procedures: 17:57 Critical care time: Bedside Care: 25 minutes, Consultation: 3 minutes, Family rn Intervention: 5 minutes. Total time: 33 minutes NIH Stroke Scale - NIH Stroke Score Date: 02/10/2021 Time: 17:49 Total Score = 3 1a. Level of Consciousness (LOC) - 0(Alert) 1b. Level of Consciousness (LOC) (Year \\T\\ Age) - 0(Both) 1c. 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 Best Gaze (Lateral Gaze Paresis) - 0(Normal) 3. Visual Field Loss - 0(No visual loss) 4. Facial Palsy - 0(Normal) 5a. Left Arm: Motor (10-second hold) - 1(Drift) 5b. Right Arm: Motor (10-second hold) - 0(No drift) 6a. Left Leg: Motor (5-second hold - always test supine) - 1(Drift) 6b. Right Leg: Motor (5-second hold - always test supine) - 0(No drift) 7. Limb Ataxia (finger/nose \\T\\ heel/briggs - test with eyes open) - 0(Absent) 8. Sensory Loss (pinprick arms/legs/face) - 1(Mild to moderate loss) 9. Best Language: Aphasia (description/naming/reading) - 0(No aphasia) 10. Dysarthria (speech clarity - read or repeat words) - 0(Normal) 11. Extinction and Inattention (visual/tactile/auditory/spatial/personal) - 0(No abnormality) Initials: zb NIH Stroke Scale - NIH Stroke Score Date: 02/10/2021 Time: 17:49 Total Score = 3 1a. Level of Consciousness (LOC) - 0(Alert) 1b. Level of Consciousness (LOC) (Year \\T\\ Age) - 0(Both) 1c. 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 Best Gaze (Lateral Gaze Paresis) - 0(Normal) 3. Visual Field Loss - 0(No visual loss) 4. Facial Palsy - 0(Normal) 5a. Left Arm: Motor (10-second hold) - 1(Drift) 5b. Right Arm: Motor (10-second hold) - 0(No drift) 6a. Left Leg: Motor (5-second hold - always test supine) - 1(Drift) 6b. Right Leg: Motor (5-second hold - always test supine) - 0(No drift) 7. Limb Ataxia (finger/nose \\T\\ heel/briggs - test with eyes open) - 0(Absent) 8. Sensory Loss (pinprick arms/legs/face) - 1(Mild to moderate loss) 9. Best Language: Aphasia (description/naming/reading) - 0(No aphasia) 10. Dysarthria (speech clarity - read or repeat words) - 0(Normal) 11. Extinction and Inattention (visual/tactile/auditory/spatial/personal) - 0(No abnormality) Initials: rn Signatures: Dispatcher [employer] EDMS Tanner Robbins MD MD rn Lewis, Lynsay, RN RN ll1 Vika Cain RN RN zb Geena Angeles RN aa5 Corrections: (The following items were deleted from the chart) 17:51 17:20 NIHSS Score: 3 rn rn 19:15 18:00 02/10/2021 18:00 Transfer ordered to [facility]. Diagnosis is Weakness; Cerebral infarction; Paresthesia of skin. Reason for transfer: Higher level of care. Accepting physician is . Condition is Stable. Problem is new. Symptoms are unchanged. rn
--- NOTE | 2021-02-10 18:00 | ER ---
Nurse's Notes [facility] Name: Jenni Draper Age: 40 yrs Sex: Female : 1980 Arrival Date: 02/10/2021 Time: 16:57 Bed 14 Private MD: Diya Mora Atiq Diagnosis: Weakness;Cerebral infarction;Paresthesia of skin Presentation: 02/10 17:02 Chief complaint: Patient states: L leg feels numb for at least one hour. 10 minutes of ll1 L sided CP. Coronavirus screen: Client denies travel out of the [place] in the last 14 days. At this time, the client does not indicate any symptoms associated with coronavirus-19. Ebola Screen: Patient denies travel to an Ebola-affected area in the 21 days before illness onset. Initial Sepsis Screen: Does the patient meet any 2 criteria? HR > 90 bpm. No. Patient's initial sepsis screen is negative. Does the patient have a suspected source of infection? No. Patient's initial sepsis screen is negative. Risk Assessment: Do you want to hurt yourself or someone else? Patient reports no desire to harm self or others. Onset of symptoms was February 10, 2021. 17:02 Method Of Arrival: Wheelchair ll1 17:02 Acuity: LYUBOV 2 ll1 Triage Assessment: 18:00 General: Appears in no apparent distress. Behavior is calm. 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 LMP N/A - Hysterectomy zb Historical: - Allergies: 17:04 Adhesives; ll1 17:04 Aspirin; ll1 17:04 Bactrim; ll1 17:04 Benadryl; ll1 17:04 cefixime; ll1 17:04 Cipro IV; ll1 17:04 Clindamycin; ll1 17:04 coconut oil; ll1 17:04 Demerol; ll1 17:04 Detrol; ll1 17:04 Diltiazem; ll1 17:04 Doxycycline; ll1 17:04 FISH PRODUCT DERIVATIVES; ll1 17:04 GABAPENTIN; ll1 17:04 Iodine; ll1 17:04 ivabradine; ll1 17:04 Latex, Natural Rubber; ll1 17:04 Levofloxacin; ll1 17:04 Morphine; ll1 17:04 QUETIAPINE; ll1 17:04 Seroquel; ll1 17:04 Sulfa (Sulfonamide Antibiotics); ll1 17:04 Suprax; ll1 17:04 tolterodine; ll1 17:04 tramadol; ll1 17:04 PENICILLINS; ll1 - PMHx: 17:04 Asthma; Atrial Fib; mitral valve prolapse; CHF; Bronchitis; ll1 - PSHx: 17:04 pacemaker; Hysterectomy; Cholecystectomy; ll1 - Immunization history:: Flu vaccine is up to date. - Social history:: Smoking status: Patient denies any tobacco usage or history of. - Family history:: not pertinent. - Hospitalizations: : No recent hospitalization is reported. Screenin:49 VAN Screening: Arm Drift: Severe drift. Visual Disturbance: No visual disturbance zb noted. Aphasia: No aphasia noted. Neglect: Patient is noted to be ignoring one side of their body. Patient demonstrates neglect. Provider notified of +VAN scoring. ECP aware. 18:00 Abuse screen: Denies threats or abuse. Denies injuries from another. Nutritional zb screening: No deficits noted. Tuberculosis screening: No symptoms or risk factors identified. Fall Risk Fall in past 12 months (25 points). Secondary diagnosis (15 points) TIA, IV access (20 points). Ambulatory Aid- None/Bed Rest/Nurse Assist (0 pts). Gait- Impaired (20 pts.). Mental Status- Oriented to own ability (0 pts). Total Jolly Fall Scale indicates High Risk Score (45 or more points). Fall prevention measures have been instituted. Side Rails Up X 2 Placed Close to Nursing Station Frequent Obs/Assessments Occuring Family Present and informed to notify staff if the need to leave the bedside As available patient and family educated on Fall Prevention Program and Strategies. 18:00 The patient has not been NPO before screening. The patient is currently on the zb following diet: NPO The patient is alert, able to follow commands. The patient does not exhibit slurred or garbled speech The patient is not exhibiting difficulty speaking. The patient does not exhibit difficulty understanding words. The patient is able to swallow own secretions with no drooling or need for suction. Note assessed at this time. Not Accessed at this time. Assessment: 17:44 General: Appears in no apparent distress. Behavior is cooperative, anxious. Pain: zb Complains of pain in chest, left arm and left leg Pain does not radiate. Quality of pain is described as pressure, sharp, tingling, numb, Pain began 1 hour ago. Is continuous. Neuro: Level of Consciousness is awake, alert, obeys commands, Oriented to person, place, time, situation, Paralysis in left arm(s) leg(s) Speech is slurred, Facial symmetry appears normal, Pupils are PERRLA, Numbness in left arm and left leg. Cardiovascular: Heart tones S1 S2 present Capillary refill < 3 seconds in bilateral fingers Patient's skin is warm and dry. Rhythm is SEE EKG Chest pain is described as diffuse. Respiratory: Airway is patent Respiratory effort is even, unlabored, Respiratory pattern is regular, symmetrical. GI: Abdomen is round. Derm: Skin is intact, is healthy with good turgor, Skin is dry, Skin is normal. Musculoskeletal: Range of motion: limited in Left arm and left leg. 18:04 Reassessment: TPA started. NIH score 3. zb 18:19 Reassessment: Patient appears in no apparent distress at this time. TPA infusing for 15 zb mins. NIH score 3. 18:34 Reassessment: Patient appears in no apparent distress at this time. TPA infusing for 30 zb mins. NIH score 0. No s/s of bleeding, no c/o pain or headache. patient states she is gaining feeling back into her arm. Vital Signs: 17:02 BP 139 / 97; Pulse 124; Resp 18; Temp 97.6; Pulse Ox 98% ; Weight 58.97 kg; Height 4 ll1 ft. 11 in. (149.86 cm); Pain 8/10; 18:04 BP 120 / 88; Pulse 124; Resp 16; Pulse Ox 100% on R/A; zb 18:19 BP 126 / 88; Pulse 105; Resp 18; Pulse Ox 99% on R/A; zb 18:34 BP 133 / 89; Pulse 109; Resp 16; Pulse Ox 100% on R/A; zb 18:49 BP 119 / 79; Pulse 104; Resp 16; Pulse Ox 100% on R/A; zb 19:04 BP 125 / 98; Pulse 99; Resp 16; Pulse Ox 100% on R/A; zb 17:02 Body Mass Index 26.26 (58.97 kg, 149.86 cm) ll1 NIH Stroke Scale Scores: 17:49 NIHSS Score: 3 zb 17:49 NIHSS Score: 3 internal investigator Course: 16:57 Patient arrived in ED. am2 16:57 Diya Mora MD is Private Physician. am2 17:02 Arm band placed on. ll1 17:03 Triage completed. ll1 17:11 Tanner Robbins MD is Attending Physician. rn 17:30 Patient has correct armband on for positive identification. Bed in low position. Call zb light in reach. Side rails up X 1. Adult w/ patient. monitoring tech on. Pulse ox on. NIBP on. Door closed. Noise minimized. 17:44 Vika Cain RN is Primary Nurse. zb 17:50 Inserted saline lock: 20 gauge in right antecubital area, using aseptic technique. zb Blood collected. Patient maintains SpO2 saturation greater than 95% on room air. 18:00 EKG done, by hyperbaric tech. reviewed by Tanner Robbins MD. zb 18:00 No provider procedures requiring assistance completed. zb 18:04 Diet: Patient is NPO. TPA consent sign and located in chart along with flowsheet. zb 19:00 Patient transferred, IV remains in place. zb 02/11 00:08 CT Stroke Brain w/o Contrast Sent. zb 00:08 Stroke CXR 1 View Sent. zb Administered Medications: 02/10 18:04 Drug: ACTIvase (alteplase) {Co-Signature: aa5 (Geena Angeles RN).} Route: IV zb Thrombolytics; Rate: calculated rate; Infused Over: 60 mins; 19:04 Follow up: Response: No adverse reaction; Marked relief of symptoms zb Outcome: 18:00 ER care complete, transfer ordered by . rn 19:00 Transferred by ground EMS to [facility]. zb 19:00 Condition: improved 19:00 Instructed on the need for transfer, Demonstrated understanding of instructions. 19:15 Patient left the ED. zb NIH Stroke Scale - NIH Stroke Score Date: 02/10/2021 Time: 17:49 Total Score = 3 1a. Level of Consciousness (LOC) - 0(Alert) 1b. Level of Consciousness (LOC) (Year \T\ Age) - 0(Both) 1c. LOC Commands (Open \T\ Closes Eyes/Beauty Artist) - 0(Both) 2. Best Gaze (Lateral Gaze Paresis) - 0(Normal) 3. Visual Field Loss - 0(No visual loss) 4. Facial Palsy - 0(Normal) 5a. Left Arm: Motor (10-second hold) - 1(Drift) 5b. Right Arm: Motor (10-second hold) - 0(No drift) 6a. Left Leg: Motor (5-second hold - always test supine) - 1(Drift) 6b. Right Leg: Motor (5-second hold - always test supine) - 0(No drift) 7. Limb Ataxia (finger/nose \T\ heel/briggs - test with eyes open) - 0(Absent) 8. Sensory Loss (pinprick arms/legs/face) - 1(Mild to moderate loss) 9. Best Language: Aphasia (description/naming/reading) - 0(No aphasia) 10. Dysarthria (speech clarity - read or repeat words) - 0(Normal) 11. Extinction and Inattention (visual/tactile/auditory/spatial/personal) - 0(No abnormality) Initials: moise NIH Stroke Scale - NIH Stroke Score Date: 02/10/2021 Time: 17:49 Total Score = 3 1a. Level of Consciousness (LOC) - 0(Alert) 1b. Level of Consciousness (LOC) (Year \T\ Age) - 0(Both) 1c. LOC Commands (Open \T\ Closes Eyes/Beauty Artist) - 0(Both) 2. Best Gaze (Lateral Gaze Paresis) - 0(Normal) 3. Visual Field Loss - 0(No visual loss) 4. Facial Palsy - 0(Normal) 5a. Left Arm: Motor (10-second hold) - 1(Drift) 5b. Right Arm: Motor (10-second hold) - 0(No drift) 6a. Left Leg: Motor (5-second hold - always test supine) - 1(Drift) 6b. Right Leg: Motor (5-second hold - always test supine) - 0(No drift) 7. Limb Ataxia (finger/nose \T\ heel/briggs - test with eyes open) - 0(Absent) 8. Sensory Loss (pinprick arms/legs/face) - 1(Mild to moderate loss) 9. Best Language: Aphasia (description/naming/reading) - 0(No aphasia) 10. Dysarthria (speech clarity - read or repeat words) - 0(Normal) 11. Extinction and Inattention (visual/tactile/auditory/spatial/personal) - 0(No abnormality) Initials: rn Signatures: Tanner Robbins MD MD rn Moreno, Amanda am2 Nicho Beckman RN RN ll1 Vika Cain RN RN zb Geena Angeles RN aa5 Corrections: (The following items were deleted from the chart) 23:36 Abuse screen: Denies threats or abuse. Denies injuries from another. zb zb 23:36 Nutritional screening: No deficits noted. zb zb 23:36 Tuberculosis screening: No symptoms or risk factors identified. zb zb 23:36 Fall Risk Fall in past 12 months (25 points). Secondary diagnosis (15 zb points) TIA, IV access (20 points). Ambulatory Aid- None/Bed Rest/Nurse Assist (0 pts). Gait- Impaired (20 pts.). Mental Status- Oriented to own ability (0 pts). Total Jolly Fall Scale indicates High Risk Score (45 or more points). Fall prevention measures have been instituted. Side Rails Up X 2 Placed Close to Nursing Station Frequent Obs/Assessments Occuring Family Present and informed to notify staff if the need to leave the bedside As available patient and family educated on Fall Prevention Program and Strategies. z 23:36 NIHSS Score: 7 zb zb
[2021-02-10 18:12] LABS: Protime INR 0.93
[2021-02-10 18:29] LABS: BUN Blood Urea Nitrogen 8 mg/dL (7-18); Bicarbonate 31 mmol/L (21-32); Glucose Level 104 mg/dL (74-106); Sodium Level 142 mmol/L (136-145); Troponin (Emerg Dept Use Only) < 0.02 ng/mL (0.0-0.045)
[2021-02-10] MEDS ORDERED: NA CHLORIDE 0.9% 100 ML ONE (18:37)
--- NOTE | 2021-02-10 18:42 | RAD REPORT ---
EXAM DESCRIPTION: RAD - Chest Single View - 02/10/2021 6:22 pm CLINICAL HISTORY: weakness/numb Chest pain. COMPARISON: Chest Single View dated 10/08/2020; Chest Single View dated 08/18/2020; Chest Single View dated 07/03/2020; Chest Single View dated 05/23/2020 FINDINGS: Portable technique limits examination quality. The lungs are grossly clear. The heart is normal in size. No displaced fractures.Dual lead pacer sindi ce is present. IMPRESSION: No acute intrathoracic process suspected.
[2021-02-10 19:20] VITALS: BP 139/97; TEMP 97.6; O2SAT 98
== END 2021-02-10 19:15 | disposition short-term general hospital (02) ==
LOC: ER 16:56
PROC: 05HF33Z Insertion of Infusion Device into Left Cephalic Vein, Percutaneous Approach (ICD-10-PCS; principal; 2021-02-10)
DX: I63.9 Cerebral infarction, unspecified (principal); R20.2 Paresthesia of skin; R29.703 NIHSS score 3; Z20.822 Contact with and (suspected) exposure to COVID-19; Z95.0 Presence of cardiac pacemaker; Z88.0 Allergy status to penicillin; Z88.1 Allergy status to other antibiotic agents; Z88.2 Allergy status to sulfonamides; Z88.3 Allergy status to other anti-infective agents; Z88.5 Allergy status to narcotic agent; Z88.6 Allergy status to analgesic agent; Z88.8 Allergy status to other drugs, medicaments and biological substances; Z91.013 Allergy to seafood; Z91.018 Allergy to other foods; Z91.040 Latex allergy status; Z91.048 Other nonmedicinal substance allergy status
CPT/HCPCS: 85025; 80048; 36415; 85610; 82947; 85730; 84484; 70450; 71045; 36569; 96374; U0003; 92977; 93005; 99285; J2997

== ENCOUNTER 2021-02-21 04:03 | Emergency (ER) | payer MEDICAID ==
--- OUTSIDE RECORDS SUMMARY | 2021-02-21 04:10 | XMS REPORT | Continuity of Care Document ---
:1980 Author Organization [facility] t Address [address] [place] [address] Care Team Providers Name Role Phone MILTON Primary Care Physician Unavailable Ana Chauhan DO Attending Clinician Zakia Vera MD Attending Clinician Unavailable ZAKIA VERA Attending Clinician Unavailable Donny LARSEN, K.H. Attending Clinician Chucho BARRAGAN, A Attending Clinician Unavailable Miguel Hoang Attending Clinician Mike LARSEN Attending Clinician Nevaeh BARRAGAN Attending Clinician Unavailable Rahda FONG S Attending Clinician Malena VEGA Attending Clinician LEONOR Attending Clinician Unavailable LINETTE Attending Clinician Unavailable ZAKIA VERA Admitting Clinician Unavailable Mike LARSEN Admitting Clinician LEONOR Admitting Clinician Unavailable LINETTE Admitting Clinician Unavailable Payers Payer Name Policy Type Policy Effective Date Expiration Date Sour ce Number MEDICAID - MEDICAID [id number] 2011 [facility]:00 - Medical MEDICAID Center [id number] 2010-[id number] resentMedicaid Non-Contracted SOLORIO [id number] [facility] MEDICAIDMEDICAID 00:00:00 - Medica l [id number] Ce nter 18-Present Problems Condition Condition Condition Status Onset Resolution Last Treating Co mments Source Name Details Category Date Date Treatment Clinician Date Left-sided Left-sided Disease Active [facility] weakness weakness 02-12 [facility] 00 [place] Received Received Disease [facility] - plasminoge plasminoge 00:00: W[place] dical n n 00 Center activator activator (t-PA) (t-PA) less than less than 24 hours 24 hours prior to prior to arrival arrival Acute Acute Disease Active [facility] ischemic ischemic 5-20 [facility] - stroke stroke 00:00: Medical 00 [place] Chest pain Chest pain Disease Active [facility] in adult in adult - [facility] - 00[facility]: Medical 00 [place] Seizure Seizure Disease Active 2018-[address] [facility] disorder disorder 2- [facility] - 00:[facility]: Medical 00 [place] Anxiety Anxiety Disease Active [facility] disorder disorder 04-29 [facility] - 00:[facility]: Medical 00 [place] Asthma Asthma Disease Active [facility] 8 [facility] - 00:[facility]: Medical 00 [place] Paresthesi Paresthesi Disease Active 2017-[address] a of left a of left 10-17 [facility] - arm and arm and 00:00: Medical leg leg 00 [place] PAF PAF Disease Active [facility] (paroxysma (paroxysma 803 Jeanie kes - l atrial l atrial 00:00: Medica l fibrillati fibrillati 00 Ce nter on) on) Cerebrovas Cerebrovas Disease Resolve 2021-02-12 2021-02-[address] cular cular d 00:00:00 11:42:08 [facility] - accident accident Medica l (CVA), (CVA), Center unspecifie unspecifie d d mechanism mechanism Allergies, Adverse Reactions, Alerts Allergy Allergy Status Severity Reaction(s) Onset Inactive Treating Comm ents Source Name Type Date Date Clinician Penicill DA Active SV 2020-0 [facility] ins -04 [place] 00:[facility]: d 00 [facility] Sulfa DA Active MO 2020-0 [facility] (Sulfona 09-28 [place] mide 00:00: d Antibiot 00 Medical [facility]) Center Fish FA Active SV 2020-0 [facility] Containi -04 [place] ng 00:00: d Products 00 Medical Center iodine DA Active MO 2020-0 [facility] -04 [place] 00:00: d 00 Medical Center morphine DA Active SV 2020-0 [facility] 1-04 [place] 00:00: d 00 [facility] Center aspirin DA Active SV 2020-0 [facility] 1-04 [place] 00:00: d 00 Medical Center cephalex DA Active SV 2020-0 [facility] in - [place] 00:00: d 00 [facility] cefixime DA Active MO 2020-0 [facility] -04 [place] 00:00: d 00 Medical [place] doxycycl DA Active SV 2020-0 [facility] ine 1-04 [place] 00:00: d 00 [facility] Center clindamy DA Active MO 2020-0 [facility] stephan 1-04 [place] 00:00: d 00 Medical Center sulfamet DA Active MO 2020-0 [facility] hoxazole -04 [place] 00:00: d 00 Medical Center trimetho DA Active MO 2020-0 [facility] prim 1-04 [place] 00:00: d 00 Medical Center ciproflo DA Active SV 2020-0 [facility] xacin 1-04 [place] 00:00: d 00 [facility] Center adhesive DA Active SV 2020-0 [facility] tape 1-04 [place] 00:00: d 00 [facility] Center tramadol DA Active SV 2020-0 [facility] 1-04 [place] 00:00: d 00 [facility] Center gabapent DA Active SV 202-0 [facility] in 1-04 [place] 00:00: d 00 Medical Center diltiaze DA Active SV 2020-0 [facility] m 09-28 [place] 00:00: d 00 [facility] diphenhy DA Active SV 2020-0 [facility] dramine 09-28 [place] 00:00: d 00 [facility] topirama DA Active SV 2020-0 [facility] te 09-28 [place] 00:00: d 00 [facility] levoflox DA Active SV 2020-0 [facility] acin 09-28 [place] 00:00: d 00 [facility] quetiapi DA Active MO 2020-0 [facility] ne 09-28 [place] 00:00: d 00 [facility] tolterod DA Active MO 2020-0 [facility] ine 09-28 [place] 00:00: d 00 [facility] latex DA Active SV 2020-0 [facility] 09-28 [place] 00:00: d 00 [facility] ivabradi DA Active MO 2020-0 [facility] ne 09-28 [place] 00:00: d 00 [facility] coconut FA Active MO 2020-0 [facility] 09-28 [place] 00:00: d 00 [facility] Tolterod Propensi Active Rash 2017-[address] [facility] ine ty to 10-17 [facility] - adverse 00:00: Medical reaction 00 [place] Gabapent Propensi Active Shortness Of 2017-[address] [facility] in ty to Breath, Rash 10-17 [facility] - adverse 00:00: Medical reaction 00 [place] Iodine Propensi Active Rash 2017-[address] [facility] And ty to 10-17 [facility] - Iodide adverse 00:00: Medical Containi reaction 00 [place] ng s Products Latex Propensi Active Rash [...] reaction 00 Center s Quetiapi Propensi Active 2017- confusion [facility] ne ty to 10-17 [...] - Hcl adverse 00:00: Medical reaction 00 [place] Ciproflo Propensi Active 2017-[address] xacin ty to 10-17 aches. [facility] - adverse 00:00: Medical reaction 00 [place] Clindamy Propensi Active Rash 2017-[address] [facility] stephan ty to 10-17 [facility] - adverse 00:00: Medical reaction 00 Center s Social History Social Habit Start Date Stop Date Quantity Comments Source Sex Assigned At [facility] Exposure to Not sure [facility] - SARS-CoV-2 (event) Medica l Center History SDOH [facility] Binge History SDOH 2018-09-05 2018-09-05 1 [facility] Alcohol Frequency 00:00:00 00:00:00 Tobacco use and 2018-09-04 2018-09-04 Never used [facility] ethodist exposure 00:00:00 00:00:00 Alcohol intake 2018-08-18 2018-08-18 [facility] 00:[facility]:00 of alcohol [facility] Center (finding) Smoking Status Start Date Stop Date Source Former smoker 2018-09-04 00:00:00 2018-09-04 00:00:00 [facility] Medications Ordered Filled Start Stop Current Ordering Indication Dosage Frequency Signature Comments Components Source Medication Medication Date Date Medication? Clinician (SIG) Name Name ALPRAZolam Yes .25mg Take 0.[address] (XANAX) 5-21 mg by [facility] - 0.25 MG 14:04: mouth Medical tablet 46 daily as Center needed for Anxiety. busPIRone Yes 15mg Q.5D Take [address] (BUSPAR) 15 5-21 by mouth 2 Jeanie kes - MG tablet 14:04: (two) Medical 46 times Center daily. digoxin Yes 125ug QD Take 125 [facility] (LANOXIN) 5-21 mcg by [facility] - 0.125 MG 14:04: mouth Medical tablet 46 daily. [place] venlafaxine Yes 150mg QD Take [address] (EFFEXOR-XR 5-21 mg by [facility] - ) 150 MG 24 14:04: mouth Medic al hr capsule 46 daily. [place] apixaban Yes 5mg QD Take [address] [address] (ELIQUIS) 5 5-21 by mouth [facility] - mg Tab 14:04: daily. Medical tablet 46 Center levETIRAcet Yes 1000mg Q.5D Take 1,[address] [facility] am (KEPPRA) 5-21 mg by [facility] - 1000 MG 14:04: mouth 2 Medical tablet 46 (two) Center times daily. loratadine Yes 10mg QD Take [address] (CLARITIN) 5-21 by mouth [facility] - 10 mg 14:04: daily. Medical tablet 46 Center pregabalin Yes 50mg QD Take [address] (LYRICA) 25 5-21 by mouth Luke [facility] - MG capsule 14:04: nightly . Wv dical 46 Center esomeprazol Yes 40mg QD Take [address] e (NEXIUM) 5-21 by mouth [facility] - 40 MG 14:04: daily. Medical capsule 46 Center albuterol Yes 2{puff} Inhale [address] HFA 5-21 puffs by [facility] - (VENTOLIN 14:04: mouth via Med ical HFA) 90 46 inhaler as Center mcg/actuati needed for on inhaler Wheezing or Shortness of Breath . simvastatin Yes hyperlipide 5mg QD Take [address] (ZOCOR) 5 5-21 louise by mouth [facility] - MG tablet 14:04: nightly. Medi blane 46 Center carvediloL Yes 25mg Take [address] (COREG) 25 5-21 by mouth 2 Berta es - MG tablet 14:04: (two) Medical 46 times Center daily with breakfast and dinner. cariprazine Yes 1.5mg QD Take 1.[address] (Vraylar) 5-21 mg by [facility] - 1.5 mg Cap 14:04: mouth Medica l 46 nightly. Center albuterol 2020- No 1{ampul Q.5D Take [address] (ACCUNEB) -21 05-21 e} ampule by Luke [facility] - 1.25 mg/3 11:39: 00:00 nebulizati M edical mL 17 :00 on 2 (two) Center nebulizer times solution daily . fluticasone 2020- No 1{puff} QD Inhale [address] -vilanterol - 05-21 puff by [facility] - (BREO 11:39: 00:00 mouth via Medica l ELLIPTA) 17 :00 inhaler Center 100-25 daily. mcg/dose DsDv tiotropium 2020- No 18ug QD Inhale [address] (SPIRIVA) - 05-21 mcg by [facility] - 18 mcg 11:39: 00:00 mouth via Medic al inhalation 17 :00 inhaler Center capsule daily. triamcinolo 2020- No 2{spray QD [address] [facility] ne 5-19 05-19 } by Nasal [facility] - (NASACORT) 22:23: 00:00 route Medic al 55 mcg 54 :00 daily. Center nasal inhaler topiramate 2020- No 200mg Q.5D Take [address] (TOPAMAX) 5-19 05-19 mg by [facility] - 100 MG 22:23: 00:00 mouth 2 Medical tablet 21 :00 (two) Center times daily. ROFLUMILAST 2020- No COPD 500ug QD Take [address] ORAL 5-19 05-19 Associated mcg by [facility] - 22:22: 00:00 with mouth Medical 54 :00 Chronic daily. Center Bronchitis ranolazine 2020- No 500mg Q.5D Take [address] (RANEXA) 5- 05-19 mg by [facility] - 500 MG 12 22:22: 00:00 mouth 2 Medi blane hr tablet 12 :00 (two) Center times daily. levothyroxi 125ug Take [address] ne 5-19 05-19 mcg by [facility]ukes - (SYNTHROID, 22:20: 00:00 mouth Medi blane LEVOTHROID) 38 :00 Every Center 125 MCG morning on tablet an empty stomach. benztropine 2mg Take [address] (COGENTIN) 02-10-19 by mouth 3 Jeanie kes - 2 MG tablet 22:18: 00:00 (three) Me dical 40 :00 times Center daily as needed. benztropine 1mg Take [address] (COGENTIN) 02-10-19 by mouth Luke [facility] - 1 MG tablet 22:18: 00:00 daily as M edical 31 :00 needed. [place] ARIPiprazol 5mg QD Take [address] [facility] (ABILIFY) 02-10-19 by mouth Berta es - 5 MG tablet 22:18: 00:00 nightly. M edical 03 :00 [place] ARIPiprazol 10mg QD Take [address] [facility] e (ABILIFY) 02-10-19 by mouth Berta es - 10 MG 22:17: 00:00 daily. Medical disintegrat 48 :00 Center ing tablet digOXIN 2017-09 Yes 125ug QD Take 125 [...] times a day. busPIRone 2017-09 Yes 15mg [id number] Take 15 mg [facility] (BUSPAR) 10 2-11 [id number] by mouth 3 Methodi MG tablet 19:13: 3D (three) st 27 times a day. ARIPiprazol 2018- Yes 10mg QD Take 10 mg [facility] (ABILIFY) 2-11 by mouth Meth jamie 10 MG 19:13: daily. st tablet 27 Vital Signs Vital Name Observation Time Observation Value Comments Source Systolic blood 2021-02-12 12:00:00 101 mm[Hg] [facility] Diastolic blood 2021-02-12 12:00:00 72 mm[Hg] [facility] rate 2021-02-12 12:00:00 93 /min [facility] Respiratory rate 2021-02-12 12:00:00 18 /min [facility] Oxygen saturation in 2021-02-12 12:00:00 96 /min [facility] Arterial blood by Medical Ce nter Pulse oximetry Body temperature 2021-02-12 11:00:00 37.56 Ayaka [facility] Body weight 2021-02-11 10:15:00 59.5 kg [facility] BMI 2021-02-11 10:15:00 26.48 kg/m2 [facility] Body height 2021-02-11 10:15:00 149.9 cm [facility] Procedures Procedure Date / Time Performed Performing Clinician Sour e BASIC METABOLIC PANEL (7) 2021-02-12 05:34:00 Alison Prado [facility] MAGNESIUM 2021-02-12 05:34:00 Alison Prado [facility] PHOSPHORUS 2021-02-12 05:34:00 Alison Prado [facility] CBC W/PLT COUNT & AUTO 2021-02-12 04:48:00 Alison Prado I [facility] MR BRAIN WITHOUT IV 2021-02-11 16:08:00 Igor Chew [facility] MRA HEAD WITHOUT IV 2021-02-11 16:07:00 Igor Chew [facility] MRA NECK WITHOUT IV 2021-02-11 16:07:00 Igor Chew [facility] RAPID DRUG SCREEN, URINE 2021-02-11 03:05:00 Johan [facility] URINALYSIS WITH 2021-02-11 03:05:[facility] INDICATED [facility] URINALYSIS MICROSCOPIC 2021-02-11 03:05:00 Alison Prado [facility] HOMOCYSTEINE 2021-02-11 02:46:00 Johan [facility] RPR 2021-02-11 02:46:00 Johan [facility] TSH/FREE T4 IF INDICATED 2021-02-11 02:46:00 Johan [facility] VITAMIN B12 AND FOLATE 2021-02-11 02:46:00 Johan Alison [facility] CBC W/PLT COUNT & AUTO 2021-02-11 02:46:00 Alison Prado [facility] BASIC METABOLIC PANEL (7) 2021-02-11 02:46:00 Johan [facility] MAGNESIUM 2021-02-11 02:46:00 Johan [facility] PHOSPHORUS 2021-02-11 02:46:00 Johan [facility] C-REACTIVE PROTEIN 2021-02-11 02:46:00 [place] [facility] DIGOXIN LEVEL 2021-02-11 02:46:00 Johan [facility] XR CHEST 1 VIEW 2021-02-10 22:20:00 [facility] PORTABLE/BEDSIDE [facility] POCT-GLUCOSE METER 2021-02-10 21:28:00 Wilmer Vera [facility] LIPID PANEL 2021-02-10 21:22:00 Johan [facility] CBC W/PLT COUNT & AUTO 2021-02-10 21:21:00 Johan Alison [facility] COMPREHENSIVE METABOLIC 2021-02-10 21:21:[address] [facility] PROTHROMBIN TIME/INR 2021-02-10 21:21:00 Alison Prado [facility] APTT 2021-02-10 21:21:00 lAison Prado [facility] MAGNESIUM 2021-02-10 21:21:00 [facility] 2021-02-10 [facility] TROPONIN 2021-02-10 21:21:00 [facility] B-TYPE NATRIURETIC FACTOR 2021-02-10 21:21:00 Johan [facility] (BNP) [facility] LACTIC ACID, VENOUS 2021-02-10 21:21:00 Johan [facility] CREATINE KINASE (CK) 2021-02-10 21:21:00 [facility] HEMOGLOBIN A1C 2021-02-10 21:21:00 [facility] Plan of Care Planned Activity Planned Date Details Comments Source Future Scheduled 2021-05-[address] [facility] - Test 00:00:00 (Season Ended) [code Medical Center = INFLUENZA VACCINE (Season Ended)] Future Scheduled 2021-04-25 INFLUENZA VACCINE [facility] 00:00:00 [code = INFLUENZA VACCINE] Future Scheduled 2020-09-[address] [facility] - Test 00:00:00 (12+) [code = [facility] DEPRESSION SCREENING (12+)] Future Scheduled [address] [facility] - Test 00:00:00 malignant neoplasm Medical C enter of cervix (procedure) [code = 957827196] Future Scheduled 2002 [facility] for [facility] Test 00:00:00 malignant neoplasm of cervix (procedure) [code = 261902249] Future Scheduled 2000 DTAP/TDAP/TD [facility] - Test 00:00:00 VACCINES (1 - Tdap) [facility] [code = DTAP/TDAP/TD VACCINES (1 - Tdap)] Future Scheduled [address] [facility] - Test 00:00:00 SCREENING [code = Medical Ce nter HEPATITIS C SCREENING] Future Scheduled 1993 COVID-19 VACCINE (1) [facility] Test 00:00:00 [code = COVID-19 VACCINE (1)] Encounters Start End Encounter Admission Attending Care Care Encounter Source Date/Time Date/Time Type Type Clinicians Facility Department ID 2021-02-19 2021-02-20 Emergency [facility] [id number] 22:25:00 00:30:00 Radha Stafford [id number] [place] [id number] [place] [id number] 2021-02-10 2021-02-10 Telephone Donny [facility] [id number] 00:00:00 00:00:00 Navi Stafford [id number] [place] 4.2.7.2.686 [facility] [id number] [facility]9 [facility] 2021-02-10 2021-02-10 Nurse NURYS Rankin [id number] 00:00:00 00:00:00 Triage Carmendimitri VANCE [id number] [facility] 4.2.7.2.686 [id number] 2021-01-25 2021-01-25 Refill Donny [facility] [id number] 00:00:00 00:00:00 Navi Stafford [id number] [place] [id number] [facility] [id number] nal 9 [facility] 2021-01-11 2021-01-12 Emergency Lilia Pichardo [facility] [id number] 20:43:00 04:47:00 Malika Mckeon [id number] [place] 4.2.7.2.686 [place] [id number] [facility] 2021-01-11 2021-01-11 Nurse NURYS Herring [id number] 00:00:00 00:00:00 Triage Dayana VANCE [id number] [facility] 4.2.7.2.686 [id number] 2020-11-13 2020-11-13 Emergency Radha [facility] [id number] 17:55:00 22:25:00 Lillie Stafford [id number] [place] 4.2.7.2.686 [place] [id number] 2020-11-05 2020-11-05 Office Malena [facility] [id number] 14:22:39 15:26:25 Visit Tucker Stafford [id number] [place] [id number] [facility] [id number] [facility] 085 [facility] 2017-09-06 2017-09-08 Formerly [facility] [id number] [address] 10:12:00 02:32:00 [facility] Results Test Description Test Time Test Comments Results Result Comments Source Basic Metabolic Panel 2021-02-12 07:01:00 Test Item Value Reference Range Interpretation Comme nts Sodium (test code = 137 meq/L 323-394 4877-2) Potassium (test code = 4.3 meq/L 3.5-5.1 2823-3) Chloride (test code = 104 meq/L 98-107 2075-0) CO2 (test code = 2027-9) 24 meq/L 22-29 BUN (test code = 3094-0) 15 mg/dL 7-21 Creatinine (test code = 0.81 mg/dL 0.57-1.25 2160-0) Glucose (test code = 108 mg/dL 70-105 H 2345-7) Calcium (test code = 9.2 mg/dL 8.4-10.2 69565-1) EGFR (test code = 21653-3) 79 mL/min/1.73 sq m ESTIMATED GFR IS NOT ACCURATE CREATININE CARLI [place] IN PREDICTING GLOMERULAR FILT RATION RATE. ESTIMATED GFR IS NOT APPLICAB LE FOR DIALYSIS PATIEN TS. SOMMER (test code = SOMMER) [employer] SASHA - MACHELLE Carlos Lab Interpretation (test Abnormal code = 86112-1) [facility] 07:01:00 Test Item Value Reference Range Interpretation Comments Magnesium (test code = 2.5 mg/dL 1.6-2.6 50253-8) SOMMER (test code = SOMMER) [employer] ID - MACHELLE L Lab Interpretation (test Normal code = 04968-4) [facility] 07:01:00 Test Item Value Reference Range Interpretation Comments Phosphorus (test code = 4.3 mg/dL 2.3-4.7 2777-1) SOMMER (test code = SOMMER) [employer] ID - PIAYA L Lab Interpretation (test Normal code = 63946-6) [facility]OLIC [id number] 07:01:00 Test Item Value Reference Range Interpretation Comments SODIUM (BEAKER) 137 meq/L 136-145 (test code = 381) POTASSIUM (BEAKER) 4.3 meq/L 3.5-5.1 (test code = 379) CHLORIDE (BEAKER) 104 meq/L 98-107 (test code = 382) CO2 (BEAKER) (test 24 meq/L 22-29 code = 355) BLOOD UREA NITROGEN 15 mg/dL 7-21 (BEAKER) (test code = 354) CREATININE (BEAKER) 0.81 mg/dL 0.57-1.25 (test code = 358) GLUCOSE RANDOM 108 mg/dL 70-105 H (BEAKER) (test code = 652) CALCIUM (BEAKER) 9.2 mg/dL 8.4-10.2 (test code = 697) EGFR (BEAKER) (test 79 mL/min/1.73 ESTIMA AIDA GFR IS code = 1092) sq m NOT ACCURATE CREATININE CLEARANCE IN PREDICTING GLOMERULAR FILTRATION RATE . ESTIMATED GFR I S NOT APPLICABLE FOR DIALYSIS PATIEN TS. [employer] ID - PIAYA [id number] 07:01:00 Test Item Value Reference Range Interpretation Comments MAGNESIUM (BEAKER) (test code = 2.5 mg/dL 1.6-2.6 627) [employer] ID - PIAYA [id number] 07:01:00 Test Item Value Reference Range Interpretation Comments PHOSPHORUS (BEAKER) (test code = 4.3 mg/dL 2.3-4.7 604) [employer] ID - PIAYA LCBC with platelet count + automated [id number] 05:37:00 Test Item Value Reference Range Interpretation Comments WBC (test code = 6690-2) 6.8 See_Comment [A utomated message] The system [employer] generated this result transmitted ref erence range: 3.5 - 10 .5 K/L. The refe rence range was not u sed to interpret this result as normal/abnor mal. RBC (test code = 789-8) 5.14 See_Comment [Au tomated message] The system [employer] generated this result transmitted ref erence range: 3.93 - 5 .22 M/L. The refe rence range was not u sed to interpret this result as normal/abnor mal. MCHC (test code = 786-4) 31.6 See_Comment L [A utomated message] The system [employer] generated this result transmitted ref erence range: 32.2 - 3 5.5 GM/DL. The refe rence range was not u sed to interpret this result as normal/abnor mal. Hematocrit (test code = 46.5 % 34.1-44.9 H 4544-3) MCV (test code = 787-2) 90.5 fL 79.4-94.8 MCH (test code = 785-6) 28.6 pg 25.6-32.2 RDW (test code = 788-0) 12.9 % 11.7-14.4 Platelets (test code = 254 See_Comment [Aut omated message] 777-3) The system [employer] generated this result transmitted ref erence range: 150 - 45 0 K/CU MM. The referen ce range was not u sed to interpret this result as normal/abnor mal. MPV (test code = 10.0 fL 9.4-12.3 76829-9) nRBC (test code = 413) 0 See_Comment [Aut omated message] The system [employer] generated this result transmitted ref erence range: 0 - 0 /1 00 WBC. The refere nce range was not u sed to interpret this result as normal/abnor mal. % Neutros (test code = 57 % 429) % Lymphs (test code = 31 % 430) % Monos (test code = 7 % 431) % Eos (test code = 432) 4 % % Baso (test code = 437) 1 % # Neutros (test code = 3.84 See_Comment [Aut omated message] 670) The system [employer] generated this result transmitted ref erence range: 1.56 - 6 .13 K/L. The refe rence range was not u sed to interpret this result as normal/abnor mal. # Lymphs (test code = 2.10 See_Comment [Auto mated message] 414) The system [employer] generated this result transmitted ref erence range: 1.18 - 3 .74 K/L. The refe rence range was not u sed to interpret this result as normal/abnor mal. # Monos (test code = 0.48 See_Comment H [Autom ated message] 415) The system [employer] generated this result transmitted ref erence range: 0.24 - 0 .36 K/L. The refe rence range was not u sed to interpret this result as normal/abnor mal. # Eos (test code = 416) 0.26 See_Comment [Au tomated message] The system [employer] generated this result transmitted ref erence range: 0.04 - 0 .36 K/L. The refe rence range was not u sed to interpret this result as normal/abnor mal. # Baso (test code = 417) 0.04 See_Comment [A utomated message] The system [employer] generated this result transmitted ref erence range: 0.01 - 0 .08 K/L. The refe rence range was not u sed to interpret this result as normal/abnor mal. Immature 1 % 0-1 Granulocytes-Relative (test code = 2801) Lab Interpretation (test Abnormal code = 97435-4) [facility] W/PLT COUNT & AUTO [id number] 05:37:00 Test Item Value Reference Range Interpretation Comments WHITE BLOOD CELL COUNT (BEAKER) 6.8 K/ L 3.5-10.5 (test code = 775) RED BLOOD CELL COUNT (BEAKER) 5.14 M/ L 3.93-5.22 (test code = 761) HEMOGLOBIN (BEAKER) (test code = 14.7 GM/DL 11.2-15.7 410) HEMATOCRIT (BEAKER) (test code = 46.5 % 34.1-44.9 H 411) MEAN CORPUSCULAR VOLUME (BEAKER) 90.5 fL 79.4-94.8 (test code = 753) MEAN CORPUSCULAR HEMOGLOBIN 28.6 pg 25.6-32.2 (BEAKER) (test code = 751) MEAN CORPUSCULAR HEMOGLOBIN CONC 31.6 GM/DL 32.2-35.5 L (BEAKER) (test code = 752) RED CELL DISTRIBUTION WIDTH 12.9 % 11.7-14.4 (BEAKER) (test code = 412) PLATELET COUNT (BEAKER) (test 254 K/CU MM 150-450 code = 756) MEAN PLATELET VOLUME (BEAKER) 10.0 fL 9.4-12.3 (test code = 754) NUCLEATED RED BLOOD CELLS 0 /100 WBC 0-0 (BEAKER) (test code = 413) NEUTROPHILS RELATIVE PERCENT 57 % (BEAKER) (test code = 429) LYMPHOCYTES RELATIVE PERCENT 31 % (BEAKER) (test code = 430) MONOCYTES RELATIVE PERCENT 7 % (BEAKER) (test code = 431) EOSINOPHILS RELATIVE PERCENT 4 % (BEAKER) (test code = 432) BASOPHILS RELATIVE PERCENT 1 % (BEAKER) (test code = 437) NEUTROPHILS ABSOLUTE COUNT 3.84 K/ L 1.56-6.13 (BEAKER) (test code = 670) LYMPHOCYTES ABSOLUTE COUNT 2.10 K/ L 1.18-3.74 (BEAKER) (test code = 414) MONOCYTES ABSOLUTE COUNT (BEAKER) 0.48 K/ L 0.24-0.36 H (test code = 415) EOSINOPHILS ABSOLUTE COUNT 0.26 K/ L 0.04-0.36 (BEAKER) (test code = 416) BASOPHILS ABSOLUTE COUNT (BEAKER) 0.04 K/ L 0.01-0.08 (test code = 417) IMMATURE GRANULOCYTES-RELATIVE 1 % 0-1 PERCENT (BEAKER) (test code = 2801) MR, MRA, BRAIN, WITHOUT [id number] 16:54:00Reason for exam:->Ischemic Stroke Evaluation[facility] : 1980 Sex: FFINAL REPORT MR, BRAIN, WITHOUT CONTRAST, MR, MRA, BRAIN, WITHOUT CONTRAST, MR, MRA, NECK, WITHOUT IV CONTRAST INDICATION: Stroke, follow upIschemic Stroke Evaluation TECHNIQUE: Multiplanar, multisequence MR imaging of the brain without intravenous contrast.MRA of the head utilizing 3-D pvxk-kj-blukll technique, with 3-D reconstructions.MRA of the neck utilizing 2-D and 3-D xscj-ko-vhdqiv technique, with 3-D reconstructions. COMPARISON: MRI and MRA 08/21/2018 FINDINGS: MRI Brain:Intracranial: Exam is degraded by motion. No intracranial hemorrhage. No restricted diffusion to suggest acute infarct. No mass effect. No hydrocephalus. Sinuses: Mild mucosal thickening in the right maxillary sinus. Mastoids are clear. Orbits: Globes are intact. Calvarium \T\ scalp: Unremarkable. MRA Head:There is no evidence of intracranial aneurysm, focal stenosis, or major branch vessel occlusion. MRA Neck:The carotid arteries in the neck are patent including their bifurcations. There is antegrade flow in the vertebral arteries in the neck. IMPRESSION:No acute intracranial ab normality. No proximal branch arterial occlusion or high-grade focal stenosis within the head and neck. Signed: Lakshmi Amador MDReport Verified Date/Time: 02/11/2021 16:54:16 MR, MRA, NECK, WITHOUT IV [id number] 16:54:00Reason for exam:->Ischemic Stroke Evaluation [facility] : 1980 Sex: FFINAL REPORT MR, BRAIN, WITHOUT CONTRAST, MR, MRA, BRAIN, WITHOUT CONTRAST, MR, MRA, NECK, WITHOUT IV CONTRAST INDICATION: Stroke, follow upIschemic Stroke Evaluation TECHNIQUE: Multiplanar, multisequence MR imaging of the brain without intravenous contrast.MRA of the head utilizing 3-D vdlj-rt-pnlsid technique, with 3-D reconstructions.MRA of the neck utilizing 2-D and 3-D gkwa-pi-jbhxtz technique, with 3-D reconstructions. COMPARISON: MRI and MRA 08/21/2018 FINDINGS: MRI Brain:Intracranial: Exam is degraded by motion. No intracranial hemorrhage. No restricted diffusion to suggest acute infarct. No mass effect. No hydrocephalus. Sinuses: Mild mucosal thickening in the right maxillary sinus. Mastoids are clear. Orbits: Globes are intact. Calvarium \T\ scalp: Unremarkable. MRA Head:There is no evidence of intracranial aneurysm, focal stenosis, or major branch vessel occlusion. MRA Neck:The carotid arteries in the neck are patent including their bifurcations. There is antegrade flow in the vertebral arteries in the neck. IMPRESSION:No acute intracranial ab normality. No proximal branch arterial occlusion or high-grade focal stenosis within the head and neck. Signed: Lakshmi Amador Verified Date/Time: 02/11/2021 16:54:16 MR, BRAIN, WITHOUT [id number] 16:54:00Reason for exam:->Ischemic Stroke Evaluation [facility] : 1980 Sex: FFINAL REPORT MR, BRAIN, WITHOUT CONTRAST, MR, MRA, BRAIN, WITHOUT CONTRAST, MR, MRA, NECK, WITHOUT IV CONTRAST INDICATION: Stroke, follow upIschemic Stroke Evaluation TECHNIQUE: Multiplanar, multisequence MR imaging of the brain without intravenous contrast.MRA of the head utilizing 3-D pqai-xz-irigxa technique, with 3-D reconstructions.MRA of the neck utilizing 2-D and 3-D zkpo-vs-xwmriw technique, with 3-D reconstructions. COMPARISON: MRI and MRA 08/21/2018 FINDINGS: MRI Brain:Intracranial: Exam is degraded by motion. No intracranial hemorrhage. No restricted diffusion to suggest acute infarct. No mass effect. No hydrocephalus. Sinuses: Mild mucosal thickening in the right maxillary sinus. Mastoids are clear. Orbits: Globes are intact. Calvarium \T\ scalp: Unremarkable. MRA Head:There is no evidence of intracranial aneurysm, focal stenosis, or major branch vessel occlusion. MRA Neck:The carotid arteries in the neck are patent including their bifurcations. There is antegrade flow in the vertebral arteries in the neck. IMPRESSION:No acute intracranial ab normality. No proximal branch arterial occlusion or high-grade focal stenosis within the head and neck. Signed: Lakshmi Amador MDReport Verified Date/Time: 02/11/2021 16:54:16 MR brain without IV [id number] 16:54:00Interface, External Ris In - 02/11/2021 4:56 PM CDTFINAL REPORT MR, BRAIN, WITHOUT CONTRAST, MR, MRA, BRAIN, WITHOUT CONTRAST, MR, MRA, NECK, WITHOUT IV CONTRAST INDICATION: Stroke, follow upIschemic Stroke Evaluation TECHNIQUE: Multiplanar, multisequence MR imaging of the brain without intravenous contrast.MRA of the head utilizing 3-D myov-nr-olqlcx technique, with 3-D reconstructions.MRA of the neck utilizing 2-D and 3-D wrbb-zi-dajaei technique, with 3-D reconstructions. COMPARISON: MRI and MRA 08/21/2018 FINDINGS: MRI Brain:Intracranial: Exam is degraded by motion. No intracranial hemorrhage. No restricted diffusion to suggest acute infarct. No mass effect. No hydrocephalus. Sinuses: Mild mucosal thickening in the right maxillary sinus. Mastoids are clear. Orbits: Globes are intact. Calvarium \T\ scalp: Unremarkable. MRA Head:There is no evidence of intracranial aneurysm, focal stenosis, or major branch vessel occlusion. MRA Neck:The carotid arteries in the neck are patent including their bifurcations. There is antegrade flow in the vertebral arteries in the neck. IMPRESSION:No acute intracranial abnormality. No proximal branch arterial occlusion or high-grade focal stenosis within the head and neck. Signed: Lakshmi Amador Verified Date/Time: 02/11/2021 16:54:16 [facility] [id number] 16:54:00Interface, External Ris In - 02/11/2021 4:56 PM CDTFINAL REPORT MR, BRAIN, WITHOUT CONTRAST, MR, MRA, BRAIN, WITHOUT CONTRAST, MR, MRA, NECK, WITHOUT IV CONTRAST INDICATION: Stroke, follow upIschemic Stroke Evaluation TECHNIQUE: Multiplanar, multisequence MR imaging of the brain without intravenous contrast.MRA of the head utilizing 3-D yssg-vl-whduoi technique, with 3-D reconstructions.MRA of the neck utilizing 2-D and 3-D gluv-lp-offiiv technique, with 3-D reconstructions. COMPARISON: MRI and MRA 08/21/2018 FINDINGS: MRI Brain:Intracranial: Exam is degraded by motion. No intracranial hemorrhage. No restricted diffusion to suggest acute infarct. No mass effect. No hydrocephalus. Sinuses: Mild mucosal thickening in the right maxillary sinus. Mastoids are clear. Orbits: Globes are intact. Calvarium \T\ scalp: Unremarkable. MRA Head:There is no evidence of intracranial aneurysm, focal stenosis, or major branch vessel occlusion. MRA Neck:The carotid arteries in the neck are patent including their bifurcations. There is antegrade flow in the vertebral arteries in the neck. IMPRESSION:No acute intracranial abnormality. No proximal branch arterial occlusion or high-grade focal stenosis within the head and neck. Signed: Lakshmi Amador Verified Date/Time: 02/11/2021 16:54:16 [facility] without IV [id number] 16:54:00Interface, External Ris In - 02/11/2021 4:56 PM CDTFINAL REPORT MR, BRAIN, WITHOUT CONTRAST, MR, MRA, BRAIN, WITHOUT CONTRAST, MR, MRA, NECK, WITHOUT IV CONTRAST INDICATION: Stroke, follow upIschemic Stroke Evaluation TECHNIQUE: Multiplanar, multisequence MR imaging of the brain without intravenous contrast.MRA of the head utilizing 3-D pxuq-iz-motqns technique, with 3-D reconstructions.MRA of the neck utilizing 2-D and 3-D kakj-zk-tbxvfq technique, with 3-D reconstructions. COMPARISON: MRI and MRA 08/21/2018 FINDINGS: MRI Brain:Intracranial: Exam is degraded by motion. No intracranial hemorrhage. No restricted diffusion to suggest acute infarct. No mass effect. No hydrocephalus. Sinuses: Mild mucosal thickening in the right maxillary sinus. Mastoids are clear. Orbits: Globes are intact. Calvarium \T\ scalp: Unremarkable. MRA Head:There is no evidence of intracranial aneurysm, focal stenosis, or major branch vessel occlusion. MRA Neck:The carotid arteries in the neck are patent including their bifurcations. There is antegrade flow in the vertebral arteries in the neck. IMPRESSION:No acute intracranial abnormality. No proximal branch arterial occlusion or high-grade focal stenosis within the head and neck. Signed: Lakshmi Amador Verified Date/Time: 02/11/2021 16:54:16 [facility]PR[facility] 14:02:00 Test Item Value Reference Range Interpretation Comments RPR (test code = 32975-9) Nonreactive Nonreactive Lab Interpretation (test code = Normal 36348-9) [facility]RPR[facility] 14:02:00 Test Item Value Reference Range Interpretation Comments RPR SCREEN (BEAKER) (test code = Nonreactive Nonreactive 420) Hemoglobin [id number] 09:35:00 Test Item Value Reference Range Interpretation Comments Hemoglobin A1C (test code = 4548-4) 6.0 % 4.3-6.1 Lab Interpretation (test code = Normal 20501-5) [facility] CenterHEMOGLOBIN [id number] 09:35:00 Test Item Value Reference Range Interpretation Comments HEMOGLOBIN A1C (BEAKER) (test code = 6.0 % 4.3-6.1 368) Rapid drug screen, [id number] 07:26:00 Test Item Value Reference Range Interpretation Comments Barbiturate Screen Negative Negative (test code = 67259-4) Benzodiazepine Screen Negative Negative (test code = 60297-5) Cocaine (Metab.) Negative Negative Screen (test code = 3397-7) Methadone Screen (test Negative Negative code = 22248-4) Opiate Screen (test Negative Negative code = 74465-6) Cannabinoid Screen Negative Negative (test code = 60788-6) Amph/Methamph Screen Negative Negative (test code = 92925-5) Phencyclidine Screen Negative Negative (test code = 99325-1) pH, UA (test code = 6.5 5.0-8.0 5803-2) SOMMER (test code = SOMMER) DRUG CUTOFF CONC.Cocaine 300 ng/mL Cannabinoid 50 ng/mLBenzodiazepine 200 ng/mLBarbiturate 200 ng/mLPhencyclidine 25 ng/mLOpiate 300 ng/mLMethadone 300 ng/mLAmphetamine/ 1000 ng/mL Methamphetamine This assay provides an unconfirmed qualitative test result for the clinical management of patients in emergency situations. Chain of custody not maintained. Some fnap-hro-uublljr medications, as well as adulterants, may cause inaccurate results. Clinical correlation should be applied. A more comprehensive drug screen or confirmation of a detected drug may be performed upon request.[employer] ID - VIET M Lab Interpretation Normal (test code = 42342-1) [facility] CenterRAPID DRUG SCREEN, [id number] 07:26:00 Test Item Value Reference Range Interpretation Comments BARBITURATE URINE (BEAKER) (test Negative Negative code = 725) BENZODIAZEPINE SCREEN URINE (BEAKER) Negative Negative (test code = 726) COCAINE (METAB.) SCREEN (BEAKER) Negative Negative (test code = 1164) METHADONE SCREEN (BEAKER) (test code Negative Negative = 1436) OPIATE SCREEN URINE (BEAKER) (test Negative Negative code = 734) CANNABINOID SCREEN URINE (BEAKER) Negative Negative (test code = 727) AMPH/METHAMPH SCREEN (BEAKER) (test Negative Negative code = 1438) PHENCYCLIDINE SCREEN URINE (BEAKER) Negative Negative (test code = 608) PH UA (BEAKER) (test code = 467) 6.5 5.0-8.0 DRUG CUTOFF CONC.Cocaine 300 ng/mL Cannabinoid 50 ng/mLBenzodiazepine 200 ng/mLBarbiturate 200 ng/mLPhencyclidine 25 ng/mLOpiate 300 ng/mLMethadone 300 ng/mLAmphetamine/ 1000 ng/mL MethamphetamineThis assay provides an unconfirmed qualitative test result for the clinical management of patients in emergency situations. Chain of custody not maintained. Some ayqe-wqe-jwubqyc medications, as well as adulterants, may cause inaccurate results. Clinical correlation should be applied. A more comprehensivedrug screen or confirmation of a detected drug may be performed upon request.[employer] ID - VIET MUrinalysis with Microscopic If [id number] 07:11:00 Test Item Value Reference Range Interpretation Comments Color, UA (test code = Light Yellow 5778-6) Clarity, UA (test code = Clear 5767-9) Specific [place], UA (test 1.012 1.001-1.035 code = 5811-5) pH, UA (test code = 6.5 5.0-8.0 5803-2) Protein, UA (test code = Negative Negative 95594-3) Glucose, UA (test code = Negative Negative 365) Ketones, UA (test code = Negative Negative 2514-8) Bilirubin, UA (test code = Negative Negative 64607-3) Blood, UA (test code = Small Negative A 02749-8) Nitrite, UA (test code = Negative Negative 5802-4) Leukocytes, UA (test code Small Negative A = 5799-2) Urobilinogen, UA (test 0.2 mg/dL 0.2-1 code = 31650-4) Specimen Source (test code = 2795) SOMMER (test code = SOMMER) [employer] ID - [auto][employer] ID - tech Lab Interpretation (test Abnormal code = 52153-4) [facility] CenterUrinalysis Microscopic [id number] 07:11:00 Test Item Value Reference Range Interpretation Comments RBC, UA (test 11 See_Comment [Automated me ssage] code = 82099-1) The system w [employer] generated this result transmitted ref erence range: /HPF. Th e reference range was not used to int erpret this result as normal/abnormal . WBC, UA (test 11 See_Comment [Automated me ssage] code = 5821-4) The system [facility] generated this result transmitted ref erence range: /HPF. Th e reference range was not used to int erpret this result as normal/abnormal . Mucus (test Rare code = 8247-9) Squam Epithel, 3 See_Comment [Automated m essage] UA (test code = The system w [employer] 76056-0) generated this result transmitted ref erence range: /HPF. Th e reference range was not used to int erpret this result as normal/abnormal . SOMMER (test code [employer] ID - tech = SOMMER) [facility] CenterURINALYSIS WITH MICROSCOPIC IF [id number] 07:11:00 Test Item Value Reference Range Interpretation Comments COLOR (BEAKER) (test code = 470) Light Yellow CLARITY (BEAKER) (test code = Clear 469) SPECIFIC GRAVITY UA (BEAKER) 1.012 1.001-1.035 (test code = 468) PH UA (BEAKER) (test code = 467) 6.5 5.0-8.0 PROTEIN UA (BEAKER) (test code = Negative Negative 464) GLUCOSE UA (BEAKER) (test code = Negative Negative 365) KETONES UA (BEAKER) (test code = Negative Negative 371) BILIRUBIN UA (BEAKER) (test code Negative Negative = 462) BLOOD UA (BEAKER) (test code = Small Negative A 461) NITRITE UA (BEAKER) (test code = Negative Negative 465) LEUKOCYTE ESTERASE UA (BEAKER) Small Negative A (test code = 466) UROBILINOGEN UA (BEAKER) (test 0.2 mg/dL 0.2-1.0 code = 463) SOURCE(BEAKER) (test code = 2795) [employer] ID - [auto][employer] ID - techURINALYSIS [id number] 07:11:00 Test Item Value Reference Range Interpretation Comments RBC UA (BEAKER) (test code = 519) 11 /HPF WBC UA (BEAKER) (test code = 520) 11 /HPF MUCUS (BEAKER) (test code = 1574) Rare SQUAMOUS EPITHELIAL (BEAKER) (test 3 /HPF code = 516) [employer] ID - techDigoxin [id number] 06:22:00 Test Item Value Reference Range Interpretation Comments Digoxin Lvl (test code = <0.30 0.8-2 L 71077-4) SOMMER (test code = SOMMER) [employer] - PIAYA L Lab Interpretation (test Abnormal code = 44626-7) [facility] CenterDIGOXIN [id number] 06:22:00 Test Item Value Reference Range Interpretation Comments DIGOXIN LEVEL (BEAKER) (test code = < ng/mL 0.80-2.00 L 669) [employer] - MACHELLE [id number] 05:58:00 Test Item Value Reference Range Interpretation Comments Homocysteine (test code = 7.3 umol/L 5.1-15.4 15683-3) SOMMER (test code = SOMMER) [employer] - PIAYA L Lab Interpretation (test Normal code = 50486-4) [facility] CenterTSH/Free T4 If [id number] 05:58:00 Test Item Value Reference Range Interpretation Comments TSH (test code = 4.368 See_Comment [Automated 99373-1) message] The system which generated this result transmit aida reference range : 0.350 - 4.940 uIU/mL. The reference range was not used to interpret this result as normal/abnormal . SOMMER (test code = SOMMER) [employer] - PIAYA L Lab Interpretation Normal (test code = 44475-2) [facility] CenterVitamin B12 and [id number] 05:58:00 Test Item Value Reference Range Interpretation Comments Vitamin B12 (test 557 pg/mL 213-816 code = 2132-9) Folate (test code = 11.20 ng/mL See_Comment [Automa aida 2284-8) message] The system which generated this result transmit aida reference range : >=7.00. The reference range was not used to interpret this result as normal/abnormal . SOMMER (test code = SOMMER) [employer] ID - MACHELLE L Lab Interpretation Normal (test code = 47790-8) [facility] CenterHOMOCYSTEINE2021-05-20 05:58:00 Test Item Value Reference Range Interpretation Comments HOMOCYSTEINE (BEAKER) (test code = 7.3 umol/L 5.1-15.4 642) [employer] - MACHELLE LTSH/FREE T4 IF [id number] 05:58:00 Test Item Value Reference Range Interpretation Comments THYROID STIMULATING HORMONE 4.368 uIU/mL 0.350-4.940 (BEAKER) (test code = 772) [employer] - MACHELLE LVITAMIN B12 AND [id number] 05:58:00 Test Item Value Reference Range Interpretation Comments VITAMIN B12 557 pg/mL 213-816 (BEAKER) (test code = 774) FOLATE (BEAKER) 11.20 ng/mL See_Comment [Automated message] (test code = 362) The system which generated this result transmitted ref erence range: >=7.00. The reference range was not used to interpr et this result as normal/abnormal . [employer] ID - MACHELLE LC-Reactive [id number] 04:54:00 Test Item Value Reference Range Interpretation Comments CRP (test code = 676) 0.81 mg/dL 0-0.5 H SOMMER (test code = SOMMER) [employer] - MACHELLE L Lab Interpretation (test Abnormal code = 49108-4) [facility] CenterMAGNESIUM2021-05-20 04:54:00 Test Item Value Reference Range Interpretation Comments MAGNESIUM (BEAKER) 2.1 mg/dL 1.6-2.6 Specimen slightly (test code = 627) hemolyzed [employer] ID - MACHELLE [id number] 04:54:00 Test Item Value Reference Range Interpretation Comments PHOSPHORUS (BEAKER) 4.3 mg/dL 2.3-4.7 Specimen slightly (test code = 604) hemolyzed [employer] ID - SHAMIKAAYA LBASIC METABOLIC [id number] 04:54:00 Test Item Value Reference Range Interpretation Comments SODIUM (BEAKER) 138 meq/L 136-145 (test code = 381) POTASSIUM (BEAKER) 4.6 meq/L 3.5-5.1 Specimen slightly (test code = 379) hemolyzed CHLORIDE (BEAKER) 104 meq/L 98-107 (test code = 382) CO2 (BEAKER) (test 23 meq/L 22-29 code = 355) BLOOD UREA NITROGEN 11 mg/dL 7-21 (BEAKER) (test code = 354) CREATININE (BEAKER) 0.71 mg/dL 0.57-1.25 Specimen slightly (test code = 358) hemolyzed GLUCOSE RANDOM 115 mg/dL 70-105 H (BEAKER) (test code = 652) CALCIUM (BEAKER) 8.8 mg/dL 8.4-10.2 (test code = 697) EGFR (BEAKER) (test 92 mL/min/1.73 ESTIMA AIDA GFR IS code = 1092) sq m NOT ACCURATE CREATININE CLEARANCE IN PREDICTING GLOMERULAR FILTRATION RATE . ESTIMATED GFR I S NOT APPLICABLE FOR DIALYSIS PATIEN TS. [employer] ID - PIAYA LC-REACTIVE [id number] 04:54:00 Test Item Value Reference Range Interpretation Comments C-REACTIVE PROTEIN (BEAKER) (test 0.81 mg/dL 0.00-0.50 H code = 676) [employer] ID - MACHELLE LCBC W/PLT COUNT & AUTO [id number] 02:54:00 Test Item Value Reference Range Interpretation Comments WHITE BLOOD CELL COUNT (BEAKER) 6.6 K/ L 3.5-10.5 (test code = 775) RED BLOOD CELL COUNT (BEAKER) 4.60 M/ L 3.93-5.22 (test code = 761) HEMOGLOBIN (BEAKER) (test code = 13.3 GM/DL 11.2-15.7 410) HEMATOCRIT (BEAKER) (test code = 41.1 % 34.1-44.9 411) MEAN CORPUSCULAR VOLUME (BEAKER) 89.3 fL 79.4-94.8 (test code = 753) MEAN CORPUSCULAR HEMOGLOBIN 28.9 pg 25.6-32.2 (BEAKER) (test code = 751) MEAN CORPUSCULAR HEMOGLOBIN CONC 32.4 GM/DL 32.2-35.5 (BEAKER) (test code = 752) RED CELL DISTRIBUTION WIDTH 13.2 % 11.7-14.4 (BEAKER) (test code = 412) PLATELET COUNT (BEAKER) (test 224 K/CU MM 150-450 code = 756) MEAN PLATELET VOLUME (BEAKER) 9.9 fL 9.4-12.3 (test code = 754) NUCLEATED RED BLOOD CELLS 0 /100 WBC 0-0 (BEAKER) (test code = 413) NEUTROPHILS RELATIVE PERCENT 47 % (BEAKER) (test code = 429) LYMPHOCYTES RELATIVE PERCENT 34 % (BEAKER) (test code = 430) MONOCYTES RELATIVE PERCENT 14 % (BEAKER) (test code = 431) EOSINOPHILS RELATIVE PERCENT 4 % (BEAKER) (test code = 432) BASOPHILS RELATIVE PERCENT 1 % (BEAKER) (test code = 437) NEUTROPHILS ABSOLUTE COUNT 3.13 K/ L 1.56-6.13 (BEAKER) (test code = 670) LYMPHOCYTES ABSOLUTE COUNT 2.22 K/ L 1.18-3.74 (BEAKER) (test code = 414) MONOCYTES ABSOLUTE COUNT (BEAKER) 0.89 K/ L 0.24-0.36 H (test code = 415) EOSINOPHILS ABSOLUTE COUNT 0.25 K/ L 0.04-0.36 (BEAKER) (test code = 416) BASOPHILS ABSOLUTE COUNT (BEAKER) 0.05 K/ L 0.01-0.08 (test code = 417) IMMATURE GRANULOCYTES-RELATIVE 1 % 0-1 PERCENT (BEAKER) (test code = 2801) RAD, CHEST, 1 VIEW, NON [id number] 22:40:00Reason for exam:->strokeShould this be performed at the bedside?->Yes [facility] 1980 Sex: FFINAL REPORT RAD, CHEST, 1 VIEW, NON DEPT TECHNIQUE: Frontal view(s) of the chest. INDICATION: stroke. COMPARISON: 08/20/2018 chest radiograph FINDINGS/IMPRESSION: Lines/Tubes: Unchanged 2-lead pacemaker Lungs/pleura: No focal consolidation or definite interstitial pulmonary edema. No pleural effusion. No pneumothorax. Heart and Mediastinum: Unremarkable. Soft Tissues and Bones: Unremarkable. Signed: Wilmer Nieves Verified Date/Time: 02/10/2021 22:40:02 Reading Location: [address] Transitional Reading Room XR chest 1 view portable / [id number] 22:40:00Interface, External Ris In - 02/10/2021 10:42 PM CDTFINAL REPORT RAD, CHEST, 1 VIEW, NON DEPT TECHNIQUE: Frontal view(s) of the chest. INDICATION: stroke. COMPARISON: 08/20/2018 chest radiograph FINDINGS/IMPRESSION: Lines/Tubes: Unchanged 2-lead pacemaker Lungs/pleura: No focal consolidation or definite interstitial pulmonary edema. No pleural effusion. No pneumothorax. Heart and Mediastinum: Unremarkable. Soft Tissues and Bones: Unremarkable. Signed: Wilmer Nieves Verified Date/Time: 02/10/2021 22:40:02 Reading Location: [address] Transitional Reading Room [facility] & AUTO [id number] 22:16:00 Test Item Value Reference Range Interpretation Comments WHITE BLOOD CELL COUNT (BEAKER) 7.1 K/ L 3.5-10.5 (test code = 775) RED BLOOD CELL COUNT (BEAKER) 4.92 M/ L 3.93-5.22 (test code = 761) HEMOGLOBIN (BEAKER) (test code = 14.2 GM/DL 11.2-15.7 410) HEMATOCRIT (BEAKER) (test code = 44.3 % 34.1-44.9 411) MEAN CORPUSCULAR VOLUME (BEAKER) 90.0 fL 79.4-94.8 (test code = 753) MEAN CORPUSCULAR HEMOGLOBIN 28.9 pg 25.6-32.2 (BEAKER) (test code = 751) MEAN CORPUSCULAR HEMOGLOBIN CONC 32.1 GM/DL 32.2-35.5 L (BEAKER) (test code = 752) RED CELL DISTRIBUTION WIDTH 13.2 % 11.7-14.4 (BEAKER) (test code = 412) PLATELET COUNT (BEAKER) (test 241 K/CU MM 150-450 code = 756) MEAN PLATELET VOLUME (BEAKER) 10.3 fL 9.4-12.3 (test code = 754) NUCLEATED RED BLOOD CELLS 0 /100 WBC 0-0 (BEAKER) (test code = 413) NEUTROPHILS RELATIVE PERCENT 50 % (BEAKER) (test code = 429) LYMPHOCYTES RELATIVE PERCENT 33 % (BEAKER) (test code = 430) MONOCYTES RELATIVE PERCENT 11 % (BEAKER) (test code = 431) EOSINOPHILS RELATIVE PERCENT 4 % (BEAKER) (test code = 432) BASOPHILS RELATIVE PERCENT 1 % (BEAKER) (test code = 437) NEUTROPHILS ABSOLUTE COUNT 3.50 K/ L 1.56-6.13 (BEAKER) (test code = 670) LYMPHOCYTES ABSOLUTE COUNT 2.35 K/ L 1.18-3.74 (BEAKER) (test code = 414) MONOCYTES ABSOLUTE COUNT (BEAKER) 0.80 K/ L 0.24-0.36 H (test code = 415) EOSINOPHILS ABSOLUTE COUNT 0.30 K/ L 0.04-0.36 (BEAKER) (test code = 416) BASOPHILS ABSOLUTE COUNT (BEAKER) 0.04 K/ L 0.01-0.08 (test code = 417) IMMATURE GRANULOCYTES-RELATIVE 1 % 0-1 PERCENT (BEAKER) (test code = 2801) B-type Natriuretic Factor (BNP)2021-02-10 22:04:00 Test Item Value Reference Range Interpretation Comments BNP (test code = 28180-2) <10 0-100 SOMMER (test code = SOMMER) Cook [employer] ID - BS Lab Interpretation (test Normal code = 82831-6) [facility] (BNP)2021-02-10 22:04:00 Test Item Value Reference Range Interpretation Comments B-TYPE NATRIURETIC PEPTIDE (BEAKER) < pg/mL 0-100 (test code = 700) [employer] ID - BSHigh Sensitivity Troponin I ([facility] Only)2021-02-10 21:57:00 Test Item Value Reference Range Interpretation Comments Troponin I HS <4 See_Comment [Automated (test code = message] The 98867-0) system which generated this result transmitted reference range : <=17 pg/ml. The reference range was not used to interpret this result as normal/abnormal . SOMMER (test code = Cook [employer] ID - SOMMER) BSThe EYELETTER STAT High Sensitivity Troponin-I results should be used in conjunction with other diagnostic information such as ECG, clinical observations and information, and patient symptoms to aid in the diagnosis of NC. Lab Interpretation Normal (test code = 71702-4) [facility]ENSITIVITY TROPONIN [id number] 21:57:00 Test Item Value Reference Range Interpretation Comments HIGH SENSITIVITY < pg/ml See_Comment [Automated message] TROPONIN I (test code = The system which 4656719) generated this result transmitted ref erence range: <=17. Th e reference range was not used to interpr et this result as normal/abnormal . Cook [employer] ID - BSThe EYELETTER STAT High Sensitivity Troponin-I results should be used in conjunctionwith other diagnostic information such as ECG, clinical observations and information, and patient symptoms to aid in the diagnosis of NC.Lipid [id number] 21:54:00 Test Item Value Reference Range Interpretation Comments Triglycerides (test 171 mg/dL Specimen code = 2571-8) markedly hemolyzed Cholesterol (test 218 mg/dL Specimen code = 2093-3) markedly hemolyzed HDL (test code = 47 mg/dL 5-9) LDL Calculated (test 137 mg/dL code = 21251-2) SOMMER (test code = Triglyceride SOMMER) Reference Range: Low Risk <150 Borderline 150-199 High Risk 200-499 Very High Risk >=500 Cholesterol Reference Range: Low Risk <200 Borderline 200-239 High Risk >240 HDL Cholesterol Reference Range: Low Risk >=60 High Risk <40 LDL Cholesterol Reference Range: Optimal <100 Near Optimal 100-129 Borderline 130-159 High 160-189 Very High >=190 Cook Vegetable ID - BS [facility] CenterLIPID [id number] 21:54:00 Test Item Value Reference Range Interpretation Comments TRIGLYCERIDES (BEAKER) 171 mg/dL Speci men markedly (test code = 540) hemolyzed CHOLESTEROL (BEAKER) 218 mg/dL Specime n markedly (test code = 631) hemolyzed HDL CHOLESTEROL (BEAKER) 47 mg/dL (test code = 976) LDL CHOLESTEROL 137 mg/dL CALCULATED (BEAKER) (test code = 633) Triglyceride Reference Range: Low Risk <150 Borderline 150-199 High Risk 200-499 Very High Risk >=500Cholesterol Reference Range: Low Risk <200 Borderline 200-239 High Risk >240HDL Cholesterol Reference Range: Low Risk >=60 High Risk <40LDL Cholesterol Reference Range: Optimal <100 Near Optimal 100-129 Borderline 130-159 High 160-189 Very High >=190 Cook [employer] ID - BSComprehensive metabolic [id number] 21:52:00 Test Item Value Reference Range Interpretation Comments Protein, Total 8.0 See_Comment Specimen slig htly (test code = hemolyzed 2884-2) [Automated message] The system which generated this result transmit aida reference range : 6.0 - 8.3 gm/dL . The reference range was not u sed to interpret th is result as normal/abnormal . Albumin (test code 4.2 g/dL 3.5-5 Specimen slightly = 08864-7) hemolyzed Alkaline 135 U/L 40-150 Phosphatase (test code = 6768-6) Total Bilirubin 0.2 mg/dL 0.2-1.2 Specimen sli ghtly (test code = hemolyzed 1974-) Sodium (test code = 139 meq/L 821-324 0338-2) Potassium (test 4.5 meq/L 3.5-5.1 Specimen sli ghtly code = 2823-3) hemolyzed Chloride (test code 103 meq/L 98-107 = 2075-0) CO2 (test code = 25 meq/L -2027-) BUN (test code = 9 mg/dL -21 3094-0) Creatinine (test 0.78 mg/dL 0.57-1.25 Specimen sl ightly code = 2160-0) hemolyzed Glucose (test code 105 mg/dL 70-105 = 2345-7) Calcium (test code 9.6 mg/dL 8.4-10.2 = 93937-9) AST (test code = 28 U/L 5-34 Specimen sl ightly 1920-8) hemolyzed ALT (test code = 52 U/L 6-55 Specimen sl ightly 1742-6) hemolyzed EGFR (test code = 82 mL/min/1.73 [place] [address]-2) NOT ACCURATE CREATININE CLEARANCE IN PREDICTING GLOMERULAR FILTRATION RATE . ESTIMATED GFR I S NOT APPLICABLE FOR DIALYSIS PATIEN SOMMER (test code = Cook [employer] ID - BS SOMMER) [facility] CenterCreatine Kinase (CK)2021-02-10 21:52:00 Test Item Value Reference Range Interpretation Comments Total CK (test code = 70 U/L 29-200 7-6) SOMMER (test code = SOMMER) Cook [employer] ID - BS Lab Interpretation (test Normal code = 68502-0) [facility] CenterMAGNESIUM2021-05-19 21:52:00 Test Item Value Reference Range Interpretation Comments MAGNESIUM (BEAKER) 2.2 mg/dL 1.6-2.6 Specimen slightly (test code = 627) hemolyzed [employer] ID - [id number] 21:52:00 Test Item Value Reference Range Interpretation Comments PHOSPHORUS (BEAKER) 4.4 mg/dL 2.3-4.7 Specimen slightly (test code = 604) hemolyzed [employer] ID - BSCOMPREHENSIVE METABOLIC [id number] 21:52:00 Test Item Value Reference Range Interpretation Comments TOTAL PROTEIN 8.0 gm/dL 6.0-8.3 Specimen sligh tly (BEAKER) (test code = hemoly zed 770) ALBUMIN (BEAKER) 4.2 g/dL 3.5-5.0 Specimen sl ightly (test code = 1145) hemolyzed ALKALINE PHOSPHATASE 135 U/L 40-150 (BEAKER) (test code = 346) BILIRUBIN TOTAL 0.2 mg/dL 0.2-1.2 Specimen sli ghtly (BEAKER) (test code = hemoly zed 377) SODIUM (BEAKER) (test 139 meq/L 136-145 code = 381) POTASSIUM (BEAKER) 4.5 meq/L 3.5-5.1 Specimen slightly (test code = 379) hemolyzed CHLORIDE (BEAKER) 103 meq/L 98-107 (test code = 382) CO2 (BEAKER) (test 25 meq/L 22-29 code = 355) BLOOD UREA NITROGEN 9 mg/dL 7-21 (BEAKER) (test code = 354) CREATININE (BEAKER) 0.78 mg/dL 0.57-1.25 Specimen slightly (test code = 358) hemolyzed GLUCOSE RANDOM 105 mg/dL 70-105 (BEAKER) (test code = 652) CALCIUM (BEAKER) 9.6 mg/dL 8.4-10.2 (test code = 697) AST (SGOT) (BEAKER) 28 U/L 5-34 Specimen slightly (test code = 353) hemolyzed ALT (SGPT) (BEAKER) 52 U/L 6-55 Specimen slightly (test code = 347) hemolyzed EGFR (BEAKER) (test 82 mL/min/1.73 ESTIMA AIDA GFR IS code = 1092) sq m NOT ACCURATE CREATININE CLEARANCE IN PREDICTING GLOMERULAR FILTRATION RATE . ESTIMATED GFR I S NOT APPLICABLE FOR DIALYSIS PATIEN TS. Cook Vegetable ID - BSCREATINE KINASE (CK)2021-02-10 21:52:00 Test Item Value Reference Range Interpretation Comments CREATINE KINASE TOTAL (BEAKER) (test 70 U/L 29-200 code = 380) Cook [employer] ID - [id number] 21:46:00 Test Item Value Reference Range Interpretation Comments PTT (test code = 31400-1) 30.5 See_Comment [ Automated message] The system [employer] generated this result transmitted ref erence range: 22.5 - 3 6.0 seconds. The re ference range was not u sed to interpret this result as normal/abnor mal. Lab Interpretation (test Normal code = 72988-1) [facility] CenterLactic acid, [id number] 21:46:00 Test Item Value Reference Range Interpretation Comments Lactate, Venous (test 1.96 mmol/L 0.5-2.2 Specim en code = 2872) markedly hemolyzed SOMMER (test code = SOMMER) Cook [employer] ID - BS Lab Interpretation Normal (test code = 61891-1) [facility] CenterAPTT2021-05-19 21:46:00 Test Item Value Reference Range Interpretation Comments PARTIAL THROMBOPLASTIN TIME 30.5 seconds 22.5-36.0 (BEAKER) (test code = 760) LACTIC ACID, [id number] 21:46:00 Test Item Value Reference Range Interpretation Comments LACTATE BLOOD VENOUS 1.96 mmol/L 0.50-2.20 Specime n markedly (2) (BEAKER) (test hemolyzed code = 2872) Cook [employer] ID - BSProthrombin time/[id number] 21:45:00 Test Item Value Reference Interpretation Comments Range Protime (test code = 12.7 See_Comment [Autom ated 5902-2) message] The system which generated this result transmitted reference range : 11.9 - 14.2 seconds. The reference range was not used to interpret this result as normal/abnormal . INR (test code = 0.98 See_Comment [Automated 6301-6) message] The system which generated this result transmitted reference range : <=5.90. The reference range was not used to interpret this result as normal/abnormal . SOMMER (test code = RECOMMENDED SOMMER) COUMADIN/WARFARIN INR THERAPY RANGESSTANDARD DOSE: 2.0 - 3.0 Includes: PROPHYLAXIS for venous thrombosis, systemic embolization; TREATMENT for venous thrombosis and/or pulmonary embolus.HIGH RISK: Target INR is 2.5-3.5 for patients with mechanical heart valves. Lab Interpretation Normal (test code = 06832-2) [facility] CenterPROTHROMBIN TIME/[id number] 21:45:00 Test Item Value Reference Range Interpretation Comments PROTIME (BEAKER) 12.7 seconds 11.9-14.2 (test code = 759) INR (BEAKER) (test 0.98 See_Comment [Automat ed message] code = 370) The system whic h generated this result transmitted ref erence range: <=5.90. The reference range was not used to int erpret this result as normal/abnormal . RECOMMENDED COUMADIN/WARFARIN INR THERAPY RANGESSTANDARD DOSE: 2.0 - 3.0 Includes: PROPHYLAXIS forvenous thrombosis, systemic embolization; TREATMENT for venous thrombosis and/or pulmonary embolus.HIGH RISK: Target INR is 2.5-3.5 for patients with mechanical heart valves.POC-Glucose [id number] 21:39:00 Test Item Value Reference Range Interpretation Comments POC-Glucose Meter (test 93 mg/dL 70-110 : TE STED AT [facility] code = 1538) [address] [facility], [address]: Cook Vegetable/Techni rhonda ID = [id number] for AILYN JAVIER Lab Interpretation (test Normal code = 21844-5) [facility] CenterPOCT-GLUCOSE [id number] 21:39:00 Test Item Value Reference Range Interpretation Comments POC-GLUCOSE METER 93 mg/dL 70-110 : TESTED A T [facility] 6720 (ARNOL) (test code = AYLIN Rivera [facility], 1538) [address]: Cook Vegetable/Techni rhonda ID = [id number] for GERTRUDE SHAY [id number] 15:45:00 Test Item Value Reference Range Interpretation Comments SURG (test code = SURG) RUN DATE: 09/30/20 [facility] PAGE 1 RUN TIME: 1545 Specimen Inquiry RUN USER: INTERFACE PATIENT: ADAM MARSH LOC: [place] Vergara #: [id number] AGE/SX: 40/F ROOM: RE09/29/20REG DR: Linus Boone MD : 82 BED: DIS: STATUS: DEP [facility] TLOC: SPEC #: [id number] RECD: 09/29/20 STATUS: MACIEL REQ #: [id number] WU: 09/29/[address]: Linus Boone MD ENTERED: 09/29/20 SP TYPE: SURG OTHR DR: Svetlana Provider ORDERED: SURG PATH LVL 4 COPIES TO: Linus Boone MD [address] [place] [address] Undefined Provider HISTOLOGY: TISSUE ID BLK PCS DHIRAJ LEV PROCEDURE DISPOSITION ____ ___ ___ ___ STOMACH, NOS A 1 2 PROCEDURES: SURG PATH LVL 4 (09/29/20) TISSUES: A. STOMACH, NOS - GASTRIC BIOPSY CLINICAL HISTORY R10.13, K21.9, K92.0, R14.0, R11.2, R19.7, R19.4 CPT CODES CPT CODE(S): 92864 , , , , , , FINAL DIAGNOSIS Stomach, biopsy: MILD CHRONIC GASTRITIS NEGATIVE FOR INTESTINAL METAPLASIA, DYSPLASIA, OR MALIGNANCY NEGATIVE FOR HELICOBACTER PYLORI ORGANISMS GROSS DESCRIPTION Gastric biopsy. Received in formalin are two wilkinson tissue fragments, 0.4 cm each, all as A. bk/nr Grossing performed at [facility], [address] [place] [address], [address], [place] [address]. Network Field Engineer: Aditya Hanson M.D. CONTINUED ON NEXT PAGE RUN DATE: 09/30/20 [facility] - LAB PAGE 2 RUN TIME: 154 Specimen Inquiry RUN USER: INTERFACE SPEC #: [id number] PATIENT: MIGUELADAM YOKO #[id number] (Continued) MICROSCOPIC DESCRIPTION Gastric biopsy. Sections demonstrate gastric mucosa with mild chronic inflammation. No dysplasia or malignancy is identified. No evidence of Helicobacter pylori organisms or intestinal metaplasia is seen. Signed SIGNATURE ON FILE Hector Issa 09/30/20 1545 END OF REPORT COVID 19 INHOUSE [id number] 13:41:00 Test Item Value Reference Range Interpretation Comments COVID 19 INHOUSE AG NEGATIVE Negative Per manu facturer, (test code = negative result s should [id number]) be treated aspr esumptive and, if inconsi [...] symptoms co nsistent with COVID-19. BASIC METABOLIC [id number] 13:40:00 Test Item Value Reference Range Interpretation [...] MG/DL 8.5-10.1 N - XR CHEST 1 [id number] 13:33:00 [facility] 1980 Sex: F Name: ADAM MARSH [facility] : [birth year] Age/S: 40 / F [address] [facility] Unit #: [id number] Loc: [place] [address] Phys: Linus Boone MD Acct: [id number] Dis Date: Status: PRE [facility] PHONE #: [phone] Exam Date: 09/28/2020 1326 FAX #: Reason: PREOP EXAMS: CPT: [id number] XR CHEST 1 V 97333 Fluoro Time: DAP (Gy m2): Air Kerma [...] PAGE 1 Signed Report Name: ADAM MARSH [facility] : 1980 Age/S: 40 / F [address] [place] [address] Unit #: [id number] Loc: [place] [address] Phys: Linus Boone MD Acct: [id number] Dis Date: Status: PRE WYC PHONE #: [phone] Exam Date: 09/28/2020 1326 FAX #: Reason: PREOP EXAMS: CPT: [id number] XR CHEST 1 V 50087 Fluoro Time: DAP (Gy m2): Air Kerma (mGy): <Continued> Technologist: RT Emily(R)(CT) Trnscb Date/Time: 09/28/2020 (1437) 16 Orig Print D/T: S: 09/28/2020 (7279) PAGE 2 SignedReportPROTHROMBIN [id number] 13:29:00 Test Item Value Reference Range Interpretation Comments PT PATIENT (test code = PTP) 10.6 SECONDS 9.3-12.9 N INTERNATIONAL NORMAL RATIO 0.95 INR Unit 0.8-1.2 N (test code = INR) THROMBOPLASTIN TIME [id number] 13:29:00 Test Item Value Reference Range Interpretation Comments THROMBOPLASTIN TIME PARTIAL 28.0 SECONDS 26-35 N (test code = PTT) CBC W/AUTO [id number] 13:26:00 Test Item Value Reference Range Interpretation [...] code NO DIFF/SCN CRITERIA = MDIFF) POCT-GLUCOSE [id number] 10:22:00 Test Item Value Reference Range Interpretation Comments POC-GLUCOSE METER 102 mg/dL 70-110 TESTED AT [place] [address] ([facility]) (test code = AYLIN SWAN [place] 1538) [address] MR, MRA, BRAIN, WITHOUT [id number] 09:32:00Reason for exam:->Ischemic Stroke EvaluationFINAL REPORT MRA Head CLINICAL HISTORY: Ischemic Stroke TECHNIQUE: MRA of the head utilizing 3-D icbr-tx-uiihlu technique, with 3-D reconstructions. COMPARISON: None FINDINGS: There is no evidence of intracranial aneurysm, focal stenosis, or major branch vessel occlusion. IMPRESSION: No evidence for a major [place] proximal branch vessel occlusion. MRA Neck CLINICAL HISTORY: Ischemic Stroke TECHNIQUE: MRA of the neck utilizing 2-D and 3-D snuj-es-qjyyxt technique, with 3-D reconstructions. COMPARISON: None FINDINGS: The carotid arteries in the neck are patent including their bifurcations. There is antegrade flow in the vertebral arteries in the neck. IMPRESSION: No evidence of hemodynamically significant stenosis in the cervical carotid or vertebral arteries by NASCET criteria. Signed: Santos Winn MDRkarenort Verified Date/Time: 08/21/2018 09:32:09 Reading Location: [address] Neuro Reading Room MR, MRA, NECK, WITHOUT IV [id number] 09:32:00Reason for exam:->Ischemic Stroke EvaluationFINAL REPORT MRA Head CLINICAL HISTORY: Ischemic Stroke TECHNIQUE: MRA of the head utilizing 3-D cuyd-ss-dwmfjw technique, with 3-D reconstructions. COMPARISON: None FINDINGS: There is no evidence of intracranial aneurysm, focal stenosis, or major branch vessel occlusion. IMPRESSION: No evidence for a major [place] proximal branch vessel occlusion. MRA Neck CLINICAL HISTORY: Ischemic Stroke TECHNIQUE: MRA of the neck utilizing 2-D and 3-D prek-qz-pupxkr technique, with 3-D reconstructions. COMPARISON: None FINDINGS: The carotid arteries in the neck are patent including their bifurcations. There is antegrade flow in the vertebral arteries in the neck. IMPRESSION: No evidence of hemodynamically significant stenosis in the cervical carotid or vertebral arteries by NASCET criteria. Signed: Santos Winn MDRiman Verified Date/Time: 08/21/2018 09:32:09 Reading Location: [address] Neuro Reading Room MR, BRAIN, WITHOUT [id number] 09:25:00Reason for exam:- >Ischemic Stroke EvaluationFINAL REPORT [...] Winn Verified Date/Time: 08/21/2018 09:25:25 Reading Location: [facility] C013V Neuro R ding Room POCT-GLUCOSE [id number] 21:26:00 Test Item Value Reference Range Interpretation Comments POC-GLUCOSE METER 119 mg/dL 70-110 H TESTED AT [place] [address] ([facility]) (test code = AYLIN Rivera [facility] 1538) [address] POCT-GLUCOSE [id number] 18:03:00 Test Item Value Reference Range Interpretation Comments POC-GLUCOSE METER 119 mg/dL 70-110 H TESTED AT [place] [address] ([facility]) (test code = KIRKNM Miguel [facility] 1538) [address] POCT-GLUCOSE [id number] 12:39:00 Test Item Value Reference Range Interpretation Comments POC-GLUCOSE METER 120 mg/dL 70-110 H TESTED AT [place] [address] ([facility]) (test code = KIRKNM Miguel [facility] 1538) [address] RAD, CHEST, 1 VIEW, NON [id number] 12:04:00Reason for exam:->To Locate Heart Device (Pacemaker)Should [...] MDReport Verified Date/Time: 08/20/2018 12:04:06 Reading [facility] Reading Room POCT-GLUCOSE [id number] 09:17:00 Test Item Value Reference Range Interpretation Comments POC-GLUCOSE METER 121 mg/dL 70-110 H TESTED AT [facility] 6720 (BEAKER) (test code = [facility] 1538) [address] BASIC METABOLIC [id number] 06:56:00 Test Item Value Reference Range Interpretation [...] 697) EGFR (BEAKER) (test 96 mL/min/1.73 ESTIMA AIDA GFR IS code = 1092) sq m NOT ACCURATE CREATININE CLEARANCE IN PREDICTING GLOMERULAR FILTRATION RATE . ESTIMATED GFR I S NOT APPLICABLE FOR DIALYSIS PATIEN TS. POCT-GLUCOSE [id number] 21:09:00 Test Item Value Reference Range Interpretation Comments POC-GLUCOSE METER 109 mg/dL 70-[address] [facility] (test code = [facility] 1538) [address] POCT-GLUCOSE [id number] 17:15:00 Test Item Value Reference Range Interpretation Comments POC-GLUCOSE METER 117 mg/dL 70-[address] [facility] 67 ([facility]) (test code = [facility] 1538) [address] VITAMIN B12 AND [id number] 06:39:00 Test Item Value Reference Range Interpretation Comments VITAMIN B12 (BEAKER) (test code = 524 pg/mL 213-816 024) FOLATE (BEAKER) (test code = 362) 13.5 ng/mL >=7.0 BASIC METABOLIC [id number] 05:48:00 Test Item Value Reference Range Interpretation [...] 697) EGFR (BEAKER) (test 91 mL/min/1.73 ESTIMA AIDA GFR IS code = 1092) sq m NOT ACCURATE CREATININE CLEARANCE IN PREDICTING GLOMERULAR FILTRATION RATE . ESTIMATED GFR I S NOT APPLICABLE FOR DIALYSIS PATIEN TS. [id number] 15:42:00 Test Item Value Reference Range Interpretation Comments RPR SCREEN (BEAKER) (test code = Nonreactive Nonreactive 420) HEMOGLOBIN [id number] 09:14:00 Test Item Value Reference Range Interpretation Comments HEMOGLOBIN A1C (BEAKER) (test code = 5.3 % 4.3-6.1 368) TSH/FREE T4 IF [id number] 04:49:00 Test Item Value Reference Range Interpretation Comments THYROID STIMULATING HORMONE 3.18 uIU/mL 0.35-4.94 (BEAKER) (test code = 772) BASIC METABOLIC [id number] 04:38:00 Test Item Value Reference Range Interpretation [...] 697) EGFR (BEAKER) (test 90 mL/min/1.73 ESTIMA AIDA GFR IS code = 1092) sq m NOT ACCURATE CREATININE CLEARANCE IN PREDICTING GLOMERULAR FILTRATION RATE . ESTIMATED GFR I S NOT APPLICABLE FOR DIALYSIS PATIEN TS. LIPID [id number] 04:38:00 Test Item Value Reference Range Interpretation [...] 130-159 High 160-189 Very High >=190HEPATIC FUNCTION [id number] 04:38:00 Test Item Value Reference Range Interpretation [...] (test code = 413) AFB Culture and [id number] 13:24:00Specimen/Source: Wound/PACEMAKERCollected: 09/05/2017 19:45 Status: Final Last Updated: 11/01/2017 13:24 DAE-Voklc-Jryhkfdkidrb (Final) (Final) 09/07/17 No acid fast bacill seen on direct smear Culture Result (Final) (Final) 11/01/17 No growth of AFB at six (6) weeksFungus Culture with [id number] 12:12:00 Specimen/Source: Wound/PACEMAKERCollected: 09/05/2017 19:45 Status: Final Last Updated: 10/22/2017 12:12 Fungal Smear Result (Final) (Final) 09/06/17 No yeast or hyphae seen Culture Result (Final) (Final) 10/22/17 No fungus isolated at 6 weeksCulture, Blood [id number] 08:23:00Specimen: BloodCollected: 09/04/2017 20:30 Status: Final Last Updated: 09/10/2017 08:23 Culture Result (Final) (Final) No Growth After 5 DaysCulture, Blood [id number] 08:23:00Specimen: BloodCollected: 09/04/2017 20:15 Status: Final Last Updated: 09/10/2017 08:23 Culture Result (Final) (Final) No Growth After 5 DaysCulture, Wound [id number] 08:52:00Specimen: WoundCollected: 09/05/2017 19:45 Status: Final Last Updated: 09/08/2017 08:52 Gram Stain (Final) (Final) 09/06/17 No organisms seen, Few WBC's Culture Result (Final) (Final) 09/08/17 Anaerobic culture:No anaerobes isolated at 3 days Isolate (Final) (Final) 09/07/17Few Staph-coag positive Isolate Staph-coag positive JERMAINE (mcg/ml) Amoxicillin/Clav (AUG)<=4/2 Susceptible Ampicillin (AM) >8 Resistant Ampicillin/Sulb (A/S) <=8/4 Susceptible Cefazolin (CFZ) <=4 Susceptible Ceftriaxone (ORAL HYGIENIST) <=4 Susceptible Chloramphenicol (C) <=8 Susceptible Ciprofloxacin (CP) <=1 Susceptible Clindamycin (CM) 0.5 Susceptible Erythromycin (E) <=0.25 Susceptible Gentamicin (GM) <=1 Susceptible Imipenem (IMP) <=4 Susceptible Levofloxacin (LEV) <=0.5 Susceptible Linezolid (LNZ) 4 Susceptible Oxacillin (OX1) 0.5 Susceptible Penicillin (P) >8 Resistant Rifampin (RA) <=1 Susceptible Tetracycline (TE) <=1 Susceptible Trimethoprim/Sulfa <=0.5/9.Susceptible (SXT) 5 Vancomycin (VA) 2 SusceptibleRenal [id number] 08:51:00 Test Item Value Reference Range Interpretation [...] National Kidney Foundation,http :[email or web address] [email or web address].nih.gov CBC with [id number] 07:39:00 Test Item Value Reference Range Interpretation [...] code = ALYMPH) 1.7 K/cumm 0.5-4.6 N [place] Abs (test code = AMONO) 0.3 K/cumm 0.0-1.2 N Eos Abs (test code = AEOS) 0.29 K/cumm 0.00-0.74 N Baso Abs (test code = ABASO) 0.0 K/cumm 0.00-0.21 N Vancomycin, [id number] 12:33:00 Test Item Value Reference Range Interpretation Comments Vanco, Trou (test code = VANTR) 7.9 ug/mL 10.0-20.0 L Magnesium, [id number] 06:37:00 Test Item Value Reference Range Interpretation Comments Magnesium (test code = MG) 2.4 mg/dL 1.7-2.5 N Renal [id number] 06:29:00 Test Item Value Reference Range Interpretation [...] National Kidney Foundation,http :[email or web address] ep.nih.gov BHCG, Serum, [id number] 06:26:00 Test Item Value Reference Range Interpretation Comments Preg Qual [Se] (test code = BSHCG) Negative Negative N CBC with [id number] 06:24:00 Test Item Value Reference Range Interpretation [...] code = ALYMPH) 1.6 K/cumm 0.5-4.6 N [place] Abs (test code = AMONO) 0.4 K/cumm 0.0-1.2 N Eos Abs (test code = AEOS) 0.18 K/cumm 0.00-0.74 N Baso Abs (test code = ABASO) 0.0 K/cumm 0.00-0.21 N XR CHEST 1 [id number] 16:29:55XR CHEST 1 VIEWLOCATION: [id number]: None.INDICATION: REVIEW PICC LINE PLACEMENTDISCUSSION:AP chest and [...] = TSH) 3.44 mIU/mL 0.270-4.200 N Lipid [id number] 05:47:00 Test Item Value Reference Range Interpretation Comments Cholesterol (test 160 mg/dL 0-200 N code = CHOL) Triglycerides (test 126 mg/dL 9-200 N code = TRIG) HDL (test code = 35 mg/dL 50-60 L HDL) Chol/HDL (test code 4.6 Ratio 0.0-4.4 H = CHOLPHDL) LDL, Calculated 100 0-130 N (NOTE)RISK O F HEART (test code = LDLC) DISEASEPu blished by [place] Heart AssociationAnal yte Optim al Boderline Increased RiskC HOL <200 200-239 >240TRI G <150 150-199 >200HDL Male: >60 <40HDL Female: >60 <50 LDL < 100 130-15 9 >160 LDL NEAR OPTIMAL IS 100- 129 VLDL (test code = 25 mg/dL 5-40 N VLDL) LDL/HDL (test code = 3 LDLPHDL) Basic Metabolic [id number] 05:47:00 Test Item Value Reference Range Interpretation [...] the National Kidney Foundation,http ://nkd ep.nih.gov Magnesium, [id number] 05:47:00 Test Item Value Reference Range Interpretation Comments Magnesium (test code = MG) 2.3 mg/dL 1.7-2.5 N CBC with [id number] 05:36:00 Test Item Value Reference Range Interpretation [...] code = ALYMPH) 2.2 K/cumm 0.5-4.6 N [place] Abs (test code = AMONO) 0.3 K/cumm 0.0-1.2 N Eos Abs (test code = AEOS) 0.24 K/cumm 0.00-0.74 N Baso Abs (test code = ABASO) 0.0 K/cumm 0.00-0.21 N Partial Thromboplastin [id number] 21:26:00 Test Item Value Reference Range Interpretation Comments aPTT (test code = PTT) 29.00 seconds 24.39-37.25 N Prothrombin [id number] 21:26:00 Test Item Value Reference Range Interpretation Comments PT (test code = PT) 10.70 seconds 9.78-13.35 N INR (test code = INR) 0.95 Ratio 0.6-1.2 N Comprehensive Metabolic [id number] 21:23:00 Test Item Value Reference Range Interpretation [...] National Kidney Foundation,http ://nkd ep.nih.gov CBC with [id number] 21:16:00 Test Item Value Reference Range Interpretation [...] code = ALYMPH) 2.2 K/cumm 0.5-4.6 N [place] Abs (test code = AMONO) 0.4 K/cumm 0.0-1.2 N Eos Abs (test code = AEOS) 0.17 K/cumm 0.00-0.74 N Baso Abs (test code = ABASO) 0.1 K/cumm 0.00-0.21 N
[2021-02-21 05:21] LABS: Absolute Lymphocytes (CBC) 2.2 K/uL (0.7-4.9); Basophils % 0.7 % (0-1.3); Hematocrit 39.5 % (36.0-45.0); Lymphocytes % 31.8 % (15.3-44.8); MPV 8.4 fL (7.6-11.3); RBC Red Blood Cell Count 4.61 M/uL (3.86-4.86)
[2021-02-21 05:45] LABS: Protime INR 0.9
[2021-02-21 05:48] LABS: ALT/SGPT 37 U/L (12-78); AST/SGOT 18 U/L (15-37); Albumin 3.8 g/dL (3.4-5.0); Alkaline Phosphatase 136 U/L (45-117); BUN Blood Urea Nitrogen 12 mg/dL (7-18); Bicarbonate 28 mmol/L (21-32); Bilirubin Direct < 0.1 mg/dL (0-0.2); Bilirubin Total 0.2 mg/dL (0.2-1.0); Glucose Level 102 mg/dL (74-106); Magnesium 2.5 mg/dL (1.8-2.4); NT PRO-BNP 66 pg/mL (<125); Potassium 3.6 mmol/L (3.5-5.1); Protein, Total 7.8 g/dL (6.4-8.2); Sodium Level 140 mmol/L (136-145); Troponin (Emerg Dept Use Only) < 0.02 ng/mL (0.0-0.045)
[2021-02-21] MEDS ORDERED: HYDROMORPHONE HCL 0.5 MG/0.5 ML INJ ONE ×2 (05:58→08:46)
[2021-02-21 06:57] LABS: Urine Blood Negative (Negative); Urine Glucose Negative (Negative); Urine Protein Negative (Negative); Urine Specific Gravity 1.015 (1.005-1.030); Urine pH 6.5 (5.0-7.0)
--- NOTE | 2021-02-21 07:23 | RAD REPORT ---
EXAM DESCRIPTION: CT - Chest Abd Pelvis Wo Con - 02/21/2021 6:56 am CLINICAL HISTORY: ABD PAIN, bilateral, bilateral hip and groin pain, left-sided chest and abdomen pa in Prior cholecystectomy, hysterectomy and pacemaker placement COMPARISON: Chest Single View dated 02/21/2021; Abdomen Pelvis Wo Contrast dated 02/10/2020 TECHNIQUE: Axial 5 millimeter thick images of the chest, abdomen and pelvis were obtained without IV contrast. No oral contrast administered. Patient indicates iodine contrast allergy. All CT scans are performed using dose optimization technique as appropriate and may include automated exposure control or mA/KV adjustment according to patient size. FINDINGS: The lungs are clear of mass and infiltrate. No pneumothorax or pleural effusion. No ches t wall mass or abnormal axillary lymphadenopathy seen. Mediastinal and hilar regions show no mass or lymphadenopathy. No significant cardiac finding. The liver, spleen and pancreas show no significant findings for non contrast imaging. Cholecystectom y clips present with no biliary tree dilatation. No hydronephrosis or suspicious renal mass. Isodense masses and pyelonephritis cannot be excluded on non contrast imaging. No adrenal abnormalities. No urinary bladder abnormalities. Uterus is absent. Ovaries are absent or atrophic. Punctate bilateral sub millimeter sized calyx or pyramid calculi pre sent similar to the 2019 CT study. No obstructing calculus identified. No dilated bowel loops or focal ball bowel wall thickening. No free air, free fluid or inflammatory stranding. No hernia, mass or bulky lymphadenopathy. No significant bone or vascular finding. IMPRESSION: CT chest imaging shows no mass, lymphadenopathy or other significant finding. Patient has punctate renal calyx or pyramid calculi similar to the 2020 study. No obstructing calculu s full hydronephrosis. CT abdomen and pelvis imaging otherwise shows no significant or suspicious finding.
--- NOTE | 2021-02-21 08:04 | ER ---
Nurse's Notes [facility] Name: Jenni Draper Age: 40 yrs Sex: Female : 1980 Arrival Date: 02/21/2021 Time: 04:07 Bed 3 Private MD: Diya Mora Atiq Diagnosis: Abdominal tenderness;Chest pain, unspecified Presentation: 02/21 04:22 Chief complaint: Patient states: was asleep and got up to go to bathroom and started iw having gina groin pain , also started having left sided chest pain , pain is described as stabbing , constant since 0230. Coronavirus screen: At this time, the client does not indicate any symptoms associated with coronavirus-19. Ebola Screen: Patient negative for fever greater than or equal to 101.5 degrees Fahrenheit, and additional compatible Ebola Virus Disease symptoms Patient denies exposure to infectious person. Patient denies travel to an Ebola-affected area in the 21 days before illness onset. No symptoms or risks identified at this time. Initial Sepsis Screen: Does the patient meet any 2 criteria? No. Patient's initial sepsis screen is negative. Does the patient have a suspected source of infection? No. Patient's initial sepsis screen is negative. Risk Assessment: Do you want to hurt yourself or someone else? Patient reports no desire to harm self or others. Onset of symptoms was February 21, 2021. 04:22 Method Of Arrival: Ambulatory iw 04:22 Acuity: LYUBOV 3 iw HISTOLOGY TECH: 04:26 LMP N/A - Hysterectomy iw Historical: - Allergies: 04:26 Adhesives; iw 04:26 Aspirin; iw 04:26 Bactrim; iw 04:26 Benadryl; iw 04:26 cefixime; iw 04:26 Cipro IV; iw 04:26 Clindamycin; iw 04:26 coconut oil; iw 04:26 Demerol; iw 04:26 Detrol; iw 04:26 Diltiazem; iw 04:26 Doxycycline; iw 04:26 FISH PRODUCT DERIVATIVES; iw 04:26 GABAPENTIN; iw 04:26 Iodine; iw 04:26 ivabradine; iw 04:26 Latex, Natural Rubber; iw 04:26 Levofloxacin; iw 04:26 Morphine; iw 04:26 PENICILLINS; iw 04:26 QUETIAPINE; iw 04:26 Seroquel; iw 04:26 Sulfa (Sulfonamide Antibiotics); iw 04:26 Suprax; iw 04:26 tolterodine; iw 04:26 tramadol; iw - Home Meds: 06:31 Abilify 10 mg Oral tab 1 tab once daily [Active]; albuterol sulfate 1.25 mg/3 mL Inhl lp1 nebu 3 mL 3 times per day [Active]; albuterol sulfate 1.25 mg/3 mL Inhl nebu 3 mL 3 times per day [Active]; alprazolam 0.25 mg Oral tab 1 tab nightly [Active]; atorvastatin 10 mg Oral tab 1 tab once daily [Active]; benztropine 1 mg Oral tab 1 tab 2 times per day [Active]; buspirone 15 mg Oral tab 1 tab 2 times per day [Active]; Coreg 25 mg Oral tab 1 tab 2 times per day [Active]; Daliresp 500 mcg Oral tab 1 tab once daily [Active]; digoxin 125 mcg Oral tab [Active]; Effexor XR 150 mg Oral cp24 1 cap once daily [Active]; Eliquis 5 mg Oral tab once a day [Active]; esomeprazole magnesium 40 mg Oral cpDR 1 cap once daily [Active]; Keppra 1,000 mg Oral tab 1 tab every 12 hours [Active]; loratadine 10 mg Oral tab 1 tab once daily [Active]; pregabalin 25 mg Oral 1 cap daily [Active]; ProAir HFA 90 mcg/actuation inhalation HFAA 2 puffs every 6 hours [Active]; Spiriva with HandiHaler 18 mcg inhalation CpDv 1 cap once daily [Active]; Topamax 100 mg Oral tab 2 tabs 2 times per day [Active]; venlafaxine 150 mg Oral cp24 1 cap once daily [Active]; - PMHx: 04:26 Asthma; Atrial Fib; Bronchitis; CHF; mitral valve prolapse; iw - PSHx: 04:26 pacemaker; Hysterectomy; Cholecystectomy; iw - Immunization history:: Adult Immunizations up to date. - Social history:: Smoking status: Patient reports the use of cigarette tobacco products, unknown amount. Screenin:28 Abuse screen: Denies threats or abuse. Nutritional screening: No deficits noted. ea Tuberculosis screening: No symptoms or risk factors identified. Fall Risk None identified. Assessment: 05:03 General: Appears uncomfortable, Behavior is anxious. Pain: Complains of pain in chest, lp1 right femoral area and left femoral area Pain does not radiate. Pain currently is 10 out of 10 on a pain scale. Quality of pain is described as sharp, Pain began suddenly, 2 hours ago. Neuro: Level of Consciousness is awake, alert, obeys commands, Oriented to person, place, time, situation. Cardiovascular: Patient's skin is warm and dry. Rhythm is sinus rhythm. Respiratory: Respiratory effort is even, unlabored, Breath sounds are clear bilaterally. GI: No signs and/or symptoms were reported involving the gastrointestinal system. : Denies burning with urination. EENT: No signs and/or symptoms were reported regarding the EENT system. Derm: Skin is pink, warm \T\ dry. Musculoskeletal: No deficits noted. 05:38 Reassessment: Verbal order for Dilaudid 0.5mg IV now by Dr. Hernandez. lp1 06:28 Reassessment: Patient appears in no apparent distress at this time. Patient and/or lp1 family updated on plan of care and expected duration. Pain level reassessed. Patient resting, eyes closed, respirations even unlabored. 07:00 Reassessment: RECD REPORT FROM NORA BARRAGAN. 40YO WF P/W CHEST AND GROIN PAIN. ALL CURRENT bp ORDERS COMPLETED, RESULTS UNREMARKABLE. 08:40 Reassessment: Patient appears in no apparent distress at this time. Patient and/or jd3 family updated on plan of care and expected duration. Pain level reassessed. Patient is alert, oriented x 3, equal unlabored respirations, skin warm/dry/pink. IV to the left AC infiltrated. line taken out and pressure dressing applied. 24 G started to right AC and medication given. awaiting provider to see pt prior to discharge. 09:08 Reassessment: Patient appears in no apparent distress at this time. Patient and/or jd3 family updated on plan of care and expected duration. Pain level reassessed. Patient is alert, oriented x 3, equal unlabored respirations, skin warm/dry/pink. Patient states feeling better. Vital Signs: 04:22 BP 114 / 79; Pulse 88; Resp 16; Temp 97.3; Pulse Ox 99% on R/A; Weight 58.97 kg; Height iw 4 ft. 11 in. (149.86 cm); Pain 9/10; 06:00 BP 111 / 84; Pulse 91; Resp 15; Pulse Ox 95% on R/A; lp1 07:00 BP 117 / 89; Pulse 86; Resp 17; Pulse Ox 96% ; bp 08:41 BP 116 / 84; Pulse 95; Resp 17 S; Pulse Ox 100% on R/A; jd3 04:22 Body Mass Index 26.26 (58.97 kg, 149.86 cm) iw ED Course: 04:07 Patient arrived in ED. es 04:07 Diya Mora MD is Private Physician. es 04:24 Triage completed. iw 04:28 Cindy Avitia, LAUREL is Primary Nurse. ea 04:29 Patient maintains SpO2 saturation greater than 95% on room air. ea 04:36 Davion Hernandez MD is Attending Physician. [facility] 05:04 Accessed peripheral vein via ultrasound, utilizing dynamic ultrasound technique using lp1 ,sterile technique, per hospital protocol. Clean \T\ dry. 22 g to L FA. 05:05 Nora Rodriguez, RN is Primary Nurse. lp1 05:21 XRAY Chest (1 view) In Process Unspecified. EDMS 05:30 Arm band placed on. lp1 05:30 Patient has correct armband on for positive identification. Placed in gown. Bed in low lp1 position. Call light in reach. laboratory monitor on. Pulse ox on. NIBP on. 06:26 Attending Physician role handed off by Davion Hernandez MD taty 06:26 Caio Aceves MD is Attending Physician. taty 06:56 Chest Abd Pelvis Wo Con In Process Unspecified. EDMS 07:11 Primary Nurse role handed off by Nora Rodriguez, LAUREL bp 07:11 Gee Bahena, LAUREL is Primary Nurse. bp 08:04 Nadeem Rajan MD is Referral Physician. taty 08:40 Inserted saline lock: 24 gauge in right antecubital area, using aseptic technique. jd3 09:09 No provider procedures requiring assistance completed. IV discontinued, intact, jd3 bleeding controlled, No redness/swelling at site. Pressure dressing applied. Administered Medications: 05:39 Drug: Dilaudid (HYDROmorphone) 0.5 mg Route: IVP; Site: left forearm; lp1 06:54 Follow up: Response: No adverse reaction lp1 08:39 Drug: Dilaudid (HYDROmorphone) 0.5 mg Route: IVP; Site: right antecubital; jd3 09:08 Follow up: Response: No adverse reaction; RASS: Alert and Calm (0) jd3 Outcome: 08:04 Discharge ordered by MD. posey 09:09 Discharged to home ambulatory, with family. jd3 09:09 Condition: stable 09:09 Discharge instructions given to patient, family, Instructed on discharge instructions, follow up and referral plans. Demonstrated understanding of instructions, follow-up care. 09:09 Patient left the ED. jd3 Signatures: Dispatcher [employer] EDCiao Zhong MD MD cha Salyer, Edna es Williams, Irene, Nora Bob RN, RN RN lp1 Cindy Avitia RN RN ea Davies, Jonathon, RN RN jd3 Peltier, Brian, RN RN bp Holmes, Maurice, MD MD 7
--- NOTE | 2021-02-21 08:05 | EDPHYS ---
Physician Documentation [facility] Name: Jenni Draper Age: 40 yrs Sex: Female : 1980 Arrival Date: 02/21/2021 Time: 04:07 Bed 3 Private MD: Diya Mora Atiq ED Physician Caio Aceves HPI: 02/21 05:53 This 40 yrs old Female presents to ER via Ambulatory with complaints of Chest mh7 Pain, Groin Pain. 05:53 The patient or guardian reports chest pain that is located primarily in the anterior mh7 chest wall, left. The pain does not radiate. 05:54 Associated signs and symptoms: Pertinent positives: abdominal pain, Pertinent mh7 negatives: cough, diaphoresis, dizziness, headache, lower extremity pain, lower extremity swelling, lightheadedness, nausea, near syncope, palpitations, recent travel, shortness of breath, syncope, vomiting. The chest pain is described as sharp. Duration: The patient or guardian reports multiple episodes, that are intermittent, that wax and wane. Modifying factors: The symptoms are alleviated by nothing. the symptoms are aggravated by nothing. Severity of pain: At its worst the pain was moderate today, in the emergency department the pain is unchanged. 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 LMP N/A - Hysterectomy iw Historical: - Allergies: 04:26 Adhesives; iw 04:26 Aspirin; iw 04:26 Bactrim; iw 04:26 Benadryl; iw 04:26 cefixime; iw 04:26 Cipro IV; iw 04:26 Clindamycin; iw 04:26 coconut oil; iw 04:26 Demerol; iw 04:26 Detrol; iw 04:26 Diltiazem; iw 04:26 Doxycycline; iw 04:26 FISH PRODUCT DERIVATIVES; iw 04:26 GABAPENTIN; iw 04:26 Iodine; iw 04:26 ivabradine; iw 04:26 Latex, Natural Rubber; iw 04:26 Levofloxacin; iw 04:26 Morphine; iw 04:26 PENICILLINS; iw 04:26 QUETIAPINE; iw 04:26 Seroquel; iw 04:26 Sulfa (Sulfonamide Antibiotics); iw 04:26 Suprax; iw 04:26 tolterodine; iw 04:26 tramadol; iw - Home Meds: 06:31 Abilify 10 mg Oral tab 1 tab once daily [Active]; albuterol sulfate 1.25 mg/3 mL Inhl lp1 nebu 3 mL 3 times per day [Active]; albuterol sulfate 1.25 mg/3 mL Inhl nebu 3 mL 3 times per day [Active]; alprazolam 0.25 mg Oral tab 1 tab nightly [Active]; atorvastatin 10 mg Oral tab 1 tab once daily [Active]; benztropine 1 mg Oral tab 1 tab 2 times per day [Active]; buspirone 15 mg Oral tab 1 tab 2 times per day [Active]; Coreg 25 mg Oral tab 1 tab 2 times per day [Active]; Daliresp 500 mcg Oral tab 1 tab once daily [Active]; digoxin 125 mcg Oral tab [Active]; Effexor XR 150 mg Oral cp24 1 cap once daily [Active]; Eliquis 5 mg Oral tab once a day [Active]; esomeprazole magnesium 40 mg Oral cpDR 1 cap once daily [Active]; Keppra 1,000 mg Oral tab 1 tab every 12 hours [Active]; loratadine 10 mg Oral tab 1 tab once daily [Active]; pregabalin 25 mg Oral 1 cap daily [Active]; ProAir HFA 90 mcg/actuation inhalation HFAA 2 puffs every 6 hours [Active]; Spiriva with HandiHaler 18 mcg inhalation CpDv 1 cap once daily [Active]; Topamax 100 mg Oral tab 2 tabs 2 times per day [Active]; venlafaxine 150 mg Oral cp24 1 cap once daily [Active]; - PMHx: 04:26 Asthma; Atrial Fib; Bronchitis; CHF; mitral valve prolapse; iw - PSHx: 04:26 pacemaker; Hysterectomy; Cholecystectomy; iw - Immunization history:: Adult Immunizations up to date. - Social history:: Smoking status: Patient reports the use of cigarette tobacco products, unknown amount. ROS: 05:54 Constitutional: Negative for fever, chills, and weight loss, Eyes: Negative for injury, mh7 pain, redness, and discharge, ENT: Negative for injury, pain, and discharge, Neck: Negative for injury, pain, and swelling, Respiratory: Negative for shortness of breath, cough, wheezing, and pleuritic chest pain, Back: Negative for injury and pain, : Negative for injury, bleeding, discharge, and swelling, MS/Extremity: Negative for injury and deformity, Skin: Negative for injury, rash, and discoloration, Neuro: Negative for headache, weakness, numbness, tingling, and seizure, Psych: Negative for depression, anxiety, suicide ideation, homicidal ideation, and hallucinations, Allergy/Immunology: Negative for hives, rash, and allergies, Endocrine: Negative for neck swelling, polydipsia, polyuria, polyphagia, and marked weight changes, Hematologic/Lymphatic: Negative for swollen nodes, abnormal bleeding, and unusual bruising. Exam: 05:54 Constitutional: This is a well developed, well nourished patient who is awake, alert, mh7 and in no acute distress. Head/Face: Normocephalic, atraumatic. Eyes: Pupils equal round and reactive to light, extra-ocular motions intact. Lids and lashes normal. Conjunctiva and sclera are non-icteric and not injected. Cornea within normal limits. Periorbital areas with no swelling, redness, or edema. Neck: Trachea midline, no thyromegaly or masses palpated, and no cervical lymphadenopathy. Supple, full range of motion without nuchal rigidity, or vertebral point tenderness. No Meningismus. Chest/axilla: Normal chest wall appearance and motion. Nontender with no deformity. No lesions are appreciated. Cardiovascular: Regular rate and rhythm with a normal S1 and S2. No gallops, murmurs, or rubs. Normal PMI, no JVD. No pulse deficits. Respiratory: Lungs have equal breath sounds bilaterally, clear to auscultation and percussion. No rales, rhonchi or wheezes noted. No increased work of breathing, no retractions or nasal flaring. Back: No spinal tenderness. No costovertebral tenderness. Full range of motion. Skin: Warm, dry with normal turgor. Normal color with no rashes, no lesions, and no evidence of cellulitis. MS/ Extremity: Pulses equal, no cyanosis. Neurovascular intact. Full, normal range of motion. Neuro: Awake and alert, GCS 15, oriented to person, place, time, and situation. Cranial nerves II-XII grossly intact. Motor strength 5/5 in all extremities. Sensory grossly intact. Cerebellar exam normal. Normal gait. Psych: Awake, alert, with orientation to person, place and time. Behavior, mood, and affect are within normal limits. 05:54 Abdomen/GI: Inspection: abdomen appears normal, Bowel sounds: normal, in all quadrants, Palpation: mild abdominal tenderness, in the right lower quadrant and left lower quadrant and bilateral inguinal area, Rectal exam: the exam is deferred, because of patient request, Indicators: McBurney's point is not tender, Dunaway's sign is negative, Rovsing's sign is negative, Obturator sign is negative, Psoas sign is negative, Liver: no appreciated palpable abnormalities, Hernia: not appreciated. 07:14 ECG was reviewed by the Attending Physician. taty 07:19 Musculoskeletal/extremity: Circulation is intact in all extremities. Sensation intact. taty Compartment Syndrome exam of affected extremity: is normal. Joints: All joints appear normal with full range of motion. Weight bearing: able to fully bear weight, DVT Exam: No signs of deep vein thrombosis. no pain, no swelling, no tenderness, negative Homans' sign noted on exam, no appreciated bluish discoloration, no erythema, no increased warmth. 07:19 Neuro: Orientation: is normal, appropriate for stated age, no acute changes, Mentation: is normal, Memory: is normal, appropriate for stated age, no acute changes, Cranial nerves: grossly normal, is grossly normal based on the patient's age, no acute changes, Cerebellar function: is grossly normal, is grossly normal based on the patient's age, no acute changes, Motor: is normal, is grossly normal based on the patient's age, no acute changes, moves all fours, Sensation: is normal, no obvious gross deficits, appropriate Gait: is steady, appropriate for age, Deep tendon reflexes are 2+ (normal) in the bilateral brachioradialis, bicep, tricep and patellar and Achilles tendons, Babinski testing is normal, seizure activity, is not displayed by the patient. Vital Signs: 04:22 BP 114 / 79; Pulse 88; Resp 16; Temp 97.3; Pulse Ox 99% on R/A; Weight 58.97 kg; Height iw 4 ft. 11 in. (149.86 cm); Pain 9/10; 06:00 BP 111 / 84; Pulse 91; Resp 15; Pulse Ox 95% on R/A; lp1 07:00 BP 117 / 89; Pulse 86; Resp 17; Pulse Ox 96% ; bp 08:41 BP 116 / 84; Pulse 95; Resp 17 S; Pulse Ox 100% on R/A; jd3 04:22 Body Mass Index 26.26 (58.97 kg, 149.86 cm) iw MDM: 06:26 Patient medically screened. taty 07:21 Differential diagnosis: abnormal EKG, anxiety, coronary artery disease chest wall pain, taty cholecystitis, Cholelithiasis pancreatitis, pneumonia, pneumothorax, pulmonary embolus, stable angina, unstable angina. HEART Score: History: Slightly Suspicious (0), ECG: Normal (0), Age: < or = 45 years (0), Risk Factors: > or = 3 Risk factors for atherosclerotic disease (2), [Hypercholesterolemia] [Hypertension] [Active Smoker] [+ Family HX] Troponin: < or = 1 x Normal Limit (0), Total Score = 2. The patient's deep vein thrombosis risk score was calculated as follows: Total Score: 0. This patient was found to be at low risk for a deep vein thrombosis by using the Well's assessment criteria. The patient's pulmonary embolism risk score was calculated as follows: Total Score: 0-2 points. This patient was found to be at low risk for a pulmonary embolism by using the Well's assessment criteria. KENNETH Risk Score: TOTAL SCORE = 0. Data reviewed: vital signs, nurses notes, lab test result(s), EKG, radiologic studies, CT scan, plain films. Data interpreted: cafeteria monitor: rate is 86 beats/min, rhythm is regular, Pulse oximetry: on room air is 96 %. Test interpretation: by ED physician or midlevel provider: ECG, plain radiologic studies. 02/21 05:02 Order name: Basic Metabolic Panel [facility] 02/21 05:02 Order name: CBC with Diff; Complete Time: 07:11 [facility] 02/21 05:02 Order name: LFT's; Complete Time: 07:11 [facility] 02/21 05:02 Order name: Magnesium; Complete Time: 07:11 [facility] 02/21 05:02 Order name: NT PRO-BNP; Complete Time: 07:11 [facility] 02/21 05:02 Order name: PT-INR; Complete Time: 07:11 [facility] 02/21 05:02 Order name: Troponin (emerg Dept Use Only); Complete Time: 07:11 [facility] 02/21 05:02 Order name: XRAY Chest (1 view) [facility] 02/21 05:02 Order name: Basic Metabolic Panel; Complete Time: 07:11 [facility] 02/21 06:25 Order name: Chest Abd Pelvis Wo Con; Complete Time: 08:04 [facility] 02/21 06:56 Order name: Urine Dipstick-Ancillary; Complete Time: 07:11 [facility] 02/21 07:13 Order name: Digoxin; Complete Time: 08:04 [facility] 02/21 05:02 Order name: EKG; Complete Time: 05:03 [facility] 02/21 05:02 Order name: Cardiac monitoring; Complete Time: 05:05 [facility] 02/21 05:02 Order name: EKG - Nurse/Tech; Complete Time: 05:05 [facility] 02/21 05:02 Order name: IV Saline Lock; Complete Time: 05:05 [facility] 02/21 05:02 Order name: Labs collected and sent; Complete Time: 05:05 [facility] 02/21 05:02 Order name: O2 Per Protocol; Complete Time: 05:05 [facility] 02/21 05:02 Order name: O2 Sat Monitoring; Complete Time: 05:05 [facility] 02/21 05:02 Order name: Urine Dipstick-Ancillary (obtain specimen); Complete Time: 06:58 [facility] EC:14 Rate is 87 beats/min. Rhythm is regular. QRS Clear is Normal. TX interval is normal. QRS taty interval is normal. QT interval is normal. No Q waves. T waves are Normal. No ST changes noted. Clinical impression: Normal ECG and No evidence of ischemia. Interpreted by me. Reviewed by me. Administered Medications: 05:39 Drug: Dilaudid (HYDROmorphone) 0.5 mg Route: IVP; Site: left forearm; lp1 06:54 Follow up: Response: No adverse reaction lp1 08:39 Drug: Dilaudid (HYDROmorphone) 0.5 mg Route: IVP; Site: right antecubital; jd3 09:08 Follow up: Response: No adverse reaction; RASS: Alert and Calm (0) jd3 Disposition: 02/21/21 08:04 Discharged to Home. Impression: Abdominal tenderness, Chest pain, unspecified. - Condition is Stable. - Discharge Instructions: Abdominal Pain, Adult, Nonspecific Chest Pain, Abdominal Pain, Adult, [id number], Nonspecific Chest Pain, [id number]. - Medication Reconciliation Form, Thank You Letter, Antibiotic Education, Prescription Opioid Use form. - Follow up: Private Physician; When: 2 - 3 days; Reason: Recheck today's complaints, Continuance of care, Re-evaluation by your physician. Follow up: Nadeem Rajan; When: 2 - 3 days; Reason: Recheck today's complaints, Re-evaluation by your physician. - Problem is new. - Symptoms have improved. Signatures: Dispatcher [employer] EDMA Caio Aceves MD MD cha Williams, Irene, RN RN iw Mayi Rodriguez RN RN lp1 Fritz Cho RN RN jd3 Gee Bahena RN RN Davion Garcia MD MD mh7 Corrections: (The following items were deleted from the chart) 06:25 06:18 Chest For PE Angio+CT.RAD.BRZ ordered. [facility] EDMA 06:25 06:18 Abdomen Pelvis W Con+CT.RAD.BRZ ordered. [facility] EDMA 09:09 08:04 02/21/2021 08:04 Discharged to Home. Impression: Abdominal tenderness; Chest jd3 pain, unspecified. Condition is Stable. Discharge Instructions: Abdominal Pain, Adult, Nonspecific Chest Pain, Abdominal Pain, Adult, [id number], Nonspecific Chest Pain, [id number]. Forms are Medication Reconciliation Form, Thank You Letter, Antibiotic Education, Prescription Opioid Use. Follow up: Private Physician; When: 2 - 3 days; Reason: Recheck today's complaints, Continuance of care, Re-evaluation by your physician. Follow up: Nadeem Rajan; When: 2 - 3 days; Reason: Recheck today's complaints, Re-evaluation by your physician. Problem is new. Symptoms have improved. taty
--- NOTE | 2021-02-21 09:11 | RAD REPORT ---
EXAM DESCRIPTION: RAD - Chest Single View - 02/21/2021 5:22 am CLINICAL HISTORY: CHEST PAIN COMPARISON: Portable February 10 TECHNIQUE: AP portable chest image was obtained 02/21/2021 5:22 am . FINDINGS: Lungs are clear. Heart and vasculature are normal. No measurable pleural effusion and no p neumothorax. No acute bony abnormality seen. No acute aortic finding. Right-sided pacemaker is in david ce. IMPRESSION: No acute cardiopulmonary process. No significant change from comparison study.
[2021-02-21 09:35] VITALS: TEMP 97.3
[2021-02-21 09:40] VITALS: BP 116/84; O2SAT 100
--- NOTE | 2021-02-24 12:07 | EKG ---
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
== END 2021-02-21 09:09 | disposition home or self-care (01) ==
LOC: ER 04:03
DX: R07.89 Other chest pain (principal); I50.9 Heart failure, unspecified; I48.91 Unspecified atrial fibrillation; J45.909 Unspecified asthma, uncomplicated; Z79.01 Long term (current) use of anticoagulants; Z88.1 Allergy status to other antibiotic agents; Z88.2 Allergy status to sulfonamides; Z88.3 Allergy status to other anti-infective agents; Z88.5 Allergy status to narcotic agent; Z88.6 Allergy status to analgesic agent; Z88.8 Allergy status to other drugs, medicaments and biological substances; Z91.013 Allergy to seafood; Z91.018 Allergy to other foods; Z91.040 Latex allergy status; Z91.048 Other nonmedicinal substance allergy status; Z95.0 Presence of cardiac pacemaker
CPT/HCPCS: 93005; 85025; 80048; 36415; 83735; 85610; 80162; 80076; 81003; 84484; 83880; 71250; 74176; 71045; 99285; J1170 ×2

== ENCOUNTER 2021-03-13 12:57 | Emergency (ER) | payer MEDICAID ==
--- OUTSIDE RECORDS SUMMARY | 2021-03-13 13:03 | XMS REPORT | Continuity of Care Document ---
:1980 Author Organization [facility] t Address [address] [place] [address] Care Team Providers Name Role Phone MILTON Primary Care Physician Unavailable Malena VEGA Attending Clinician Zakia Vera MD Attending Clinician Unavailable ZAKIA VERA Attending Clinician Unavailable LEONOR Attending Clinician Unavailable LINETTE Attending Clinician Unavailable AZKIA VERA Admitting Clinician Unavailable LEONOR Admitting Clinician Unavailable LINETTE Admitting Clinician Unavailable Payers Payer Name Policy Type Policy Effective Date Expiration Date Sour ce Number MEDICAID - MEDICAID [id number] [facility] - Medical MEDICAID Center [id number] 2010-P resentMedicaid Non-Contracted SOLORIO [id number] [facility] MEDICAIDMEDICAID 00:00:00 - Medica l [id number] Ce nter 18-Present Problems Condition Condition Condition Status Onset Resolution Last Treating Co mments Source Name Details Category Date Date Treatment Clinician Date Left-sided Left-sided Disease Active [facility] weakness weakness 02-12 [facility] - [facility]: Medical 00 [place] Received Received Disease [facility] - plasminoge plasminoge 00:00: Me dical n n 00 [place] activator activator (t-PA) (t-PA) less than less than 24 hours 24 hours prior to prior to arrival arrival Acute Acute Disease Active [facility] ischemic ischemic 02-11 [facility] - stroke stroke 00:00: Medical 00 [place] Chest pain Chest pain Disease Active [facility] in adult in adult 01-12 [facility] - 00:[facility]: Medical 00 [place] Seizure Seizure Disease Active 2018-[address] [facility] disorder disorder 2 [facility] - 00:00: Medical 00 [place] Anxiety Anxiety Disease Active [facility] disorder disorder 04-29 [facility] - 00:[facility]: Medical 00 [place] Asthma Asthma Disease Active [facility] 04-29 [facility] - 00:[facility]: Medical 00 [place] Paresthesi Paresthesi Disease Active 2017-[address] a of left a of left 10-17 [facility] - arm and arm and 00:00: Medical leg leg 00 Center PAF PAF Disease Active [facility] (paroxysma (paroxysma 04-27 Jeanie kes - l atrial l atrial [...] Date Date Clinician Penicill DA Active SV 2021-0 [facility] ins -04 [place] 00:[facility]: d [facility] Sulfa DA Active MO 2020-0 [facility] (Sulfona -04 [place] mide 00:00: d Antibiot 00 Medical ics) Center Fish FA Active SV 2020-0 [facility] Containi -04 [place] ng 00:00: d Products 00 Medical Center iodine DA Active MO 2021-0 [facility] -04 [place] 00:00: d 00 [facility] Center morphine DA Active SV 2021-0 [facility] -04 [place] 00:00: d 00 [facility] aspirin DA Active SV 1-0 [facility] -04 [place] 00:00: d 00 [facility] Center cephalex DA Active SV 2020-0 [facility] in -04 [place] 00:00: d 00 [facility] Center cefixime DA Active MO 1-0 [facility] -04 [place] 00:00: d 00 [facility] Center doxycycl DA Active SV 2020-0 [facility] ine - [place] 00:[facility]: d 00 [facility] clindamy DA Active MO 2020-0 [facility] stephan -04 [place] 00:00: d 00 [facility] Center sulfamet DA Active MO 2020-0 [facility] hoxazole - [place] 00:[facility]: d 00 [facility] Center trimetho DA Active MO 2020-0 [facility] prim -04 [place] 00:00: d 00 [facility] Center ciproflo DA Active SV 2020-0 [facility] xacin - [place] 00:00: d 00 [facility] adhesive DA Active SV 2020-0 [facility] tape - [place] 00:00: d 00 [facility] Center tramadol DA Active SV 1-0 [facility] -04 [place] 00:00: d 00 [facility] Center gabapent DA Active SV 1-0 [facility] in -04 [place] 00:00: d 00 [facility] Center diltiaze DA Active SV 1-0 [facility] m -04 [place] 00:00: d 00 [facility] Center diphenhy DA Active SV 1-0 [facility] dramine -04 [place] 00:00: d 00 [facility] Center topirama DA Active SV 2021-0 [facility] te -04 [place] 00:00: d 00 [facility] Center levoflox DA Active SV 2021-0 [facility] acin - [place] 00:00: d 00 [facility] Center quetiapi DA Active MO 2021-0 [facility] ne -04 [place] 00:00: d 00 [facility] tolterod DA Active MO 0 [facility] ine 1-04 [place] 00:00: d 00 [facility] latex DA Active SV 2020-0 [facility] 1-04 [place] 00:00: d 00 [facility] ivabradi DA Active MO 2020-0 [facility] ne 1-04 [place] 00:00: d 00 [facility] coconut FA Active MO 2020-0 [facility] 1-04 [place] 00:00: d 00 [facility] Tolterod Propensi Active Rash 2017-[address] [facility] ine ty to 10-17 [facility] - adverse 00:00: Medical reaction 00 [place] s Gabapent Propensi Active Shortness Of 2017-[address] in ty to Breath, Rash 10-17 [facility] - adverse 00:00: Medical reaction 00 [place] s Iodine Propensi Active Rash 2017-[address] [facility] And ty to 10-17 [facility] - Iodide adverse 00:00: Medical Containi reaction 00 [facility] s Products Latex Propensi Active Rash 2017-[address] ty to 10-17 [facility] - adverse 00:00: Medical reaction 00 [place] s Morphine Propensi Active Anaphylaxis 2017-[address] ty to 10-17 [facility] - adverse 00:00: Medical reaction 00 [place] s Penicill Propensi Active Anaphylaxis 2017- [facility] ins ty to 10-17 [facility] - adverse 00:00: Medical reaction 00 [place] s Quetiapi Propensi Active 2017- confusion [facility] ne ty to 10-17 [facility] - adverse 00:00: Medical reaction 00 [place] s Sulfa Propensi Active Rash 2018- [facility] (Sulfona ty to 10-17 [facility] - mide adverse 00:00: Medical Antibiot reaction 00 [facility]) s Cefixime Propensi Active Rash 2017-[address] [facility] ty to 10-17 [facility] - adverse 00:00: Medical reaction 00 [place] s Tramadol Propensi Active Rash 2017- [facility] ty to 10-17 [facility] - adverse 00:00: Medical reaction 00 [place] s Adhesive Propensi Active Rash 2017-09 Can use [facility] Tape ty to 10-17 papertape [facility] - adverse 00:00: . Medical reaction 00 [place] s Sulfamet Propensi Active Anaphylaxis 2017- [facility] hoxazole ty to 10-17 [facility] - -Trimeth adverse 00:00: Medical oprim reaction 00 Center s Diphenhy Propensi Active Nausea And 2017-[address] dramine ty to Vomiting 10-17 [facility] - Hcl adverse 00:00: Medical reaction 00 Center s Ciproflo Propensi Active 2017-[address] xacin ty to 10-17 aches. [facility] - adverse 00:00: Medical reaction 00 [place] s Clindamy Propensi Active Rash 2017-[address] stephan ty to 10-17 [facility] - adverse 00:00: Medical reaction 00 Center s Social History Social Habit Start Date Stop Date Quantity Comments Source Sex Assigned At [facility] kes - Medical [place] Exposure to Not sure [facility] - SARS-CoV-2 (event) [facility] Binge History SDOH 2018-09-05 2018-09-05 1 [place] [facility] odist Alcohol Frequency 00:00:00 00:00:00 Tobacco use and 2018-09-04 2018-09-04 Never used [facility] ethodist exposure 00:00:00 00:00:00 Alcohol intake 2018-08-18 2018-08-18 [facility] 00:00:00 of alcohol [facility] (finding) Smoking Status Start Date Stop Date Source Former smoker 2018-09-04 00:00:00 2018-09-04 00:00:00 [place] Mandaen Medications Ordered Filled Start Stop Current Ordering [...] MG 14:04: mouth Medical tablet 46 daily. Center venlafaxine Yes 150mg QD Take [address] (EFFEXOR-XR 5-21 mg by [facility] - ) 150 MG 24 14:04: mouth Medic al hr capsule 46 daily. [place] apixaban Yes 5mg QD Take 5 mg [...] 10 mg 14:04: daily. Medical tablet 46 [place] pregabalin Yes 50mg QD Take [address] (LYRICA) 25 5-21 by mouth Luke s - MG capsule 14:04: nightly . Ms dical 46 [place] esomeprazol Yes 40mg QD Take 40 mg [...] Cap 14:04: mouth Medica l 46 nightly. [place] albuterol 1- No 1{ampul Q.5D Take [address] (ACCUNEB) 5-21 05-21 e} ampule by Luke s - [...] Q.5D Take [address] (RANEXA) 5-19 05-19 mg by [facility] - 500 MG 12 22:22: 00:00 mouth 2 Medi blane hr tablet 12 :00 (two) Center times daily. levothyroxi 2020- No 125ug Take [address] ne 5-19 05-19 mcg by [facility] - (SYNTHROID, 22:20: 00:00 mouth Medi blane LEVOTHROID) 38 :00 Every Center 125 MCG morning on tablet an empty stomach. benztropine 2020- No 2mg Take [address] (COGENTIN) 5-19 05-19 by mouth 3 Jeanie kes - 2 MG tablet 22:18: 00:00 (three) Me dical 40 :00 times Center daily as needed. benztropine 1mg Take [address] (COGENTIN) 02-10 by mouth Luke s - 1 MG tablet 22:18: 00:00 daily as edical 31 :00 needed. [place] ARIPiprazol No 5mg QD Take [address] e (ABILIFY) 02-10 by mouth Berta es - 5 MG tablet 22:18: 00:00 nightly. M edical 03 :00 [place] ARIPiprazol No 10mg QD Take [address] e (ABILIFY) 02-10 by mouth Berta es - 10 MG [...] times a day. busPIRone 2017-09 Yes 15mg Q.[id number] Take 15 mg [facility] (BUSPAR) 10 2-11 [id number] by mouth 3 Methodi MG tablet 19:13: 3D (three) st 27 times a day. ARIPiprazol 2017-09 Yes 10mg QD Take 10 mg [facility] (ABILIFY) 2-11 by mouth Meth jamie 10 MG 19:13: daily. st tablet 27 Vital Signs Vital Name Observation Time Observation Value Comments Source Systolic blood 2021-02-12 12:00:00 101 mm[Hg] [facility] Diastolic blood 2021-02-12 12:00:00 72 mm[Hg] [facility] Heart rate 2021-02-12 12:00:00 93 /min [facility] Respiratory rate 2021-02-12 12:00:00 18 /min [facility] Oxygen saturation in 2021-02-12 12:00:00 96 /min [facility] Arterial blood by Medical Ce nter Pulse oximetry Body temperature 2021-02-12 11:00:00 37.56 Ayaka [facility] Body weight 2021-02-11 10:15:00 59.5 kg [facility] BMI 2021-02-11 10:15:00 26.48 kg/m2 [facility] Body height 2021-02-11 10:15:00 149.9 cm [facility] Procedures Procedure Date / Time Performed Performing Clinician [facility] e BASIC METABOLIC PANEL (7) 2021-02-12 05:34:00 [facility] 2021-02-12 05:34:00 Alison Prado [facility] PHOSPHORUS 2021-02-12 05:34:00 Johan [facility] CBC W/PLT COUNT & AUTO 2021-02-12 04:48:00 Alison Prado [facility] MR BRAIN WITHOUT IV 2021-02-11 16:08:00 Naina [facility] MRA HEAD WITHOUT IV 2021-02-11 16:07:00 Naina [facility] MRA NECK WITHOUT IV 2021-02-11 16:07:00 Naina [facility] RAPID DRUG SCREEN, URINE 2021-02-11 03:05:00 Johan Alison [facility] URINALYSIS WITH 2021-02-11 03:05:[facility] INDICATED [facility] URINALYSIS MICROSCOPIC 2021-02-11 03:05:00 Alison Prado [facility], I [facility] HOMOCYSTEINE 2021-02-11 02:46:00 Johan, [facility] RPR 2021-02-11 02:46:00 [facility] TSH/FREE T4 IF INDICATED 2021-02-11 02:46:00 [facility] VITAMIN B12 AND FOLATE 2021-02-11 02:46:00 Johan Alison [facility] CBC W/PLT COUNT & AUTO 2021-02-11 02:46:00 Johan [facility] BASIC METABOLIC PANEL (7) 2021-02-11 02:46:00 [facility] MAGNESIUM 2021-02-11 02:46:00 [facility] PHOSPHORUS 2021-02-11 02:46[facility]-REACTIVE PROTEIN 2021-02-11 02:46:00 [facility] DIGOXIN LEVEL 2021-02-11 02:46:00 [facility] XR CHEST 1 VIEW 2021-02-10 22:20:00 [facility] PORTABLE/BEDSIDE Medical Center POCT-GLUCOSE METER 2021-02-10 21:28:00 Wilmer Vera [facility] LIPID PANEL 2021-02-10 21:22:00 [facility] CBC W/PLT COUNT & AUTO 2021-02-10 21:21:00 Johan Alison [facility] COMPREHENSIVE METABOLIC 2021-02-10 21:21:00 [facility]ison [facility] PROTHROMBIN TIME/INR 2021-02-10 21:21:00 [facility] APTT 2021-02-10 21:21:00 [facility] MAGNESIUM 2021-02-10 21:21:00 [facility] PHOSPHORUS 2021-02-10 21:21:[address] [facility] HIGH SENSITIVITY TROPONIN 2021-02-10 21:21:00 [facility] I [facility] B-TYPE NATRIURETIC FACTOR 2021-02-10 21:21:00 [facility] (BNP) [facility] LACTIC ACID, VENOUS 2021-02-10 21:21:00 [facility] CREATINE KINASE (CK) 2021-02-10 21:21:00 [facility] HEMOGLOBIN A1C 2021-02-10 21:21:00 [facility] Plan of Care Planned Activity Planned Date Details Comments Source Future Scheduled 2021-05-[address] [facility] - Test 00:00:00 (Season Ended) [code Medical Center = INFLUENZA VACCINE (Season Ended)] Future Scheduled 2021-04-25 [place]FL[place] VACCINE [place] Test 00:00:00 [code = INFLUENZA VACCINE] Future Scheduled 2020-09-[address] [facility] - Test 00:00:00 (12+) [code = [facility] DEPRESSION SCREENING (12+)] Future Scheduled [address] Berta es - Test 00:00:00 malignant neoplasm Medical C enter of cervix (procedure) [code = 667741343] Future Scheduled 2002 [facility] for [facility] Test 00:00:00 malignant neoplasm of cervix (procedure) [code = 577717125] Future Scheduled 2000 DTAP/TDAP/TD [facility] - Test 00:00:00 VACCINES (1 - Tdap) [facility] [code = DTAP/TDAP/TD VACCINES (1 - Tdap)] Future Scheduled [address] [facility] - Test 00:00:00 SCREENING [code = [facility] nter HEPATITIS C SCREENING] Future Scheduled 1993 COVID-19 VACCINE (1) [facility]enny ston Manda[facility] Test 00:00:00 [code = COVID-19 VACCINE (1)] Encounters Start End Encounter Admission Attending Care Care Encounter Source Date/Time Date/Time Type Type Clinicians Facility Department ID 2021-03-02 2021-03-02 NAKUL Odonnell [id number] 00:00:00 00:00:00 Tucker Stafford [id number] [place] [id number] ameenaradha [id number] [facility] 2017-09-06 2017-09-08 [facility] Jt SUE, [facility] [id number] 10:12:00 02:32:00 [facility] Results Test Description Test Time Test Comments Results Result Comments Source Basic Metabolic Panel 2021-02-12 07:01:00 Test Item Value Reference Range Interpretation Comme nts Sodium (test code = 137 meq/L 069-894 7121-2) Potassium (test code = 4.3 meq/L 3.5-5.1 2823-3) Chloride (test code = 104 meq/L 98-107 2075-0) CO2 (test code = 8-9) 24 meq/L 22-29 BUN (test code = 3094-0) 15 mg/dL 7-21 Creatinine (test code = 0.81 mg/dL 0.57-1.25 2160-0) Glucose (test code = 108 mg/dL 70-105 H 2345-7) Calcium (test code = 9.2 mg/dL 8.4-10.2 52983-5) EGFR (test code = 99008-5) 79 mL/min/1.73 sq m ESTIMATED GFR IS NOT ACCURATE CREATININE CARLI [place] IN PREDICTING GLOMERULAR FILT RATION RATE. ESTIMATED GFR IS NOT APPLICAB LE FOR DIALYSIS PATIEN TS. SOMMER (test code = SOMMER) [facility] Nurse Staff ID - PIAYA L Lab Interpretation (test Abnormal code = 44869-2) [facility] 07:01:00 Test Item Value Reference Range Interpretation Comments Magnesium (test code = 2.5 mg/dL 1.6-2.6 37757-9) SOMMER (test code = SOMMER) [facility] Nurse Staff ID - PIAYA L Lab Interpretation (test Normal code = 25195-2) [facility] 07:01:00 Test Item Value Reference Range Interpretation Comments Phosphorus (test code = 4.3 mg/dL 2.3-4.7 2777-1) SOMMER (test code = SOMMER) [facility] Nurse Staff ID - PIAYA L Lab Interpretation (test Normal code = 60416-3) [facility]OLIC [id number] 07:01:00 Test Item Value Reference Range Interpretation [...] S NOT APPLICABLE FOR DIALYSIS PATIEN TS. [facility] Nurse Staff ID - PIDEANN [id number] 07:01:00 Test Item Value Reference Range Interpretation Comments MAGNESIUM (BEAKER) (test code = 2.5 mg/dL 1.6-2.6 627) [facility] Nurse Staff ID - SHAMIKADEANN [id number] 07:01:00 Test Item Value Reference Range Interpretation Comments PHOSPHORUS (BEAKER) (test code = 4.3 mg/dL 2.3-4.7 604) [facility] Nurse Staff ID - SHAMIKADEANN LCBC with platelet count + automated [id number] 05:37:00 Test Item Value Reference Range Interpretation Comments WBC (test code = 6690-2) 6.8 See_Comment [A utomated message] The system iOculi generated this result transmitted ref erence range: 3.5 - 10 .5 K/L. The refe rence range was not u sed to interpret this result as normal/abnor mal. RBC (test code = 789-8) 5.14 See_Comment [Au tomated message] The system iOculi generated this result transmitted ref erence range: 3.93 - 5 .22 M/L. The refe rence range was not u sed to interpret this result as normal/abnor mal. MCHC (test code = 786-4) 31.6 See_Comment L [A utomated message] The system iOculi generated this result transmitted ref erence range: [...] See_Comment [Aut omated message] 777-3) The system i[employer]cul[employer] generated this result transmitted ref erence range: 150 - 45 0 K/CU MM. The referen ce range was not u sed to interpret this result as normal/abnor mal. MPV (test code = 10.0 fL 9.4-12.3 64754-3) nRBC (test code = 413) 0 See_Comment [Aut omated message] The system iOculi generated this result transmitted ref erence range: [...] See_Comment [Aut omated message] 670) The system iOcul[employer] generated this result transmitted ref erence range: 1.56 - 6 .13 K/L. The refe rence range was not u sed to interpret this result as normal/abnor mal. # Lymphs (test code = 2.10 See_Comment [Auto mated message] 414) The system iOculi generated this result transmitted ref erence range: 1.18 - 3 .74 K/L. The refe rence range was not u sed to interpret this result as normal/abnor mal. # Monos (test code = 0.48 See_Comment H [Autom ated message] 415) The system iOculi generated this result transmitted ref erence range: 0.24 - 0 .36 K/L. The refe rence range was not u sed to interpret this result as normal/abnor mal. # Eos (test code = 416) 0.26 See_Comment [Au tomated message] The system iOculi generated this result transmitted ref erence range: 0.04 - 0 .36 K/L. The refe rence range was not u sed to interpret this result as normal/abnor mal. # Baso (test code = 417) 0.04 See_Comment [A utomated message] The system iOculi generated this result transmitted ref erence range: 0.01 - 0 .08 K/L. The refe rence range was not u sed to interpret this result as normal/abnor mal. Immature 1 % 0-1 Granulocytes-Relative (test code = 2801) Lab Interpretation (test Abnormal code = 50220-9) [facility] W/PLT COUNT & AUTO [id number] 05:37:00 Test Item Value Reference Range Interpretation [...] code = 2801) MR, MRA, BRAIN, WITHOUT [id number] 16:54:00Reason for exam:->Ischemic Stroke [facility] : 1980 Sex: FFINAL REPORT MR, BRAIN, WITHOUT CONTRAST, MR, MRA, BRAIN, WITHOUT CONTRAST, MR, MRA, NECK, WITHOUT IV CONTRAST INDICATION: Stroke, follow upIschemic Stroke Evaluation TECHNIQUE: Multiplanar, multisequence MR imaging of the brain without intravenous contrast.MRA of the head utilizing 3-D ocwp-mx-regqqo technique, with 3-D reconstructions.MRA of the neck utilizing 2-D and 3-D pqst-wg-uuhbfd technique, with 3-D reconstructions. COMPARISON: MRI and [...] 02/11/2021 16:54:16 MR, MRA, NECK, WITHOUT IV [id number] 16:54:00Reason for exam:->Ischemic Stroke Evaluation [facility] : 1980 Sex: FFINAL REPORT MR, BRAIN, WITHOUT CONTRAST, MR, MRA, BRAIN, WITHOUT CONTRAST, MR, MRA, NECK, WITHOUT IV CONTRAST INDICATION: Stroke, follow upIschemic Stroke Evaluation TECHNIQUE: Multiplanar, multisequence MR imaging of the brain without intravenous contrast.MRA of the head utilizing 3-D qath-ii-antxwu technique, with 3-D reconstructions.MRA of the neck utilizing 2-D and 3-D aeod-dw-dnkqbs technique, with 3-D reconstructions. COMPARISON: MRI and [...] within the head and neck. Signed: [facility]shmi [facility]. [facility] Verified Date/Time: 02/11/2021 16:54:16 MR, BRAIN, WITHOUT [id number] 16:54:00Reason for exam:->Ischemic Stroke Evaluation [facility] : 1980 Sex: FFINAL REPORT MR, BRAIN, WITHOUT CONTRAST, MR, MRA, BRAIN, WITHOUT CONTRAST, MR, MRA, NECK, WITHOUT IV CONTRAST INDICATION: Stroke, follow upIschemic Stroke Evaluation TECHNIQUE: Multiplanar, multisequence MR imaging of the brain without intravenous contrast.MRA of the head utilizing 3-D vbnr-tv-epgqvi technique, with 3-D reconstructions.MRA of the neck utilizing 2-D and 3-D jdmz-ha-reibpe technique, with 3-D reconstructions. COMPARISON: MRI and [...] Date/Time: 02/11/2021 16:54:16 MR brain without IV [id number] 16:54:00Interface, External Ris In - 02/11/2021 4:56 PM CDTFINAL REPORT MR, BRAIN, WITHOUT CONTRAST, MR, MRA, BRAIN, WITHOUT CONTRAST, MR, MRA, NECK, WITHOUT IV CONTRAST INDICATION: Stroke, follow upIschemic Stroke Evaluation TECHNIQUE: Multiplanar, multisequence MR imaging of the brain without intravenous contrast.MRA of the head utilizing 3-D dxgr-te-oloypl technique, with 3-D reconstructions.MRA of the neck utilizing 2-D and 3-D lltw-in-mnnshy technique, with 3-D reconstructions. COMPARISON: MRI and [...] Signed: Lakshmi Amador Verified Date/Time: 02/11/2021 16:54:16 [facility] [id number] 16:54:00Interface, External Ris In - 02/11/2021 4:56 PM CDTFINAL REPORT MR, BRAIN, WITHOUT CONTRAST, MR, MRA, BRAIN, WITHOUT CONTRAST, MR, MRA, NECK, WITHOUT IV CONTRAST INDICATION: Stroke, follow upIschemic Stroke Evaluation TECHNIQUE: Multiplanar, multisequence MR imaging of the brain without intravenous contrast.MRA of the head utilizing 3-D kwlx-jw-vrtkci technique, with 3-D reconstructions.MRA of the neck utilizing 2-D and 3-D piuo-ti-yifwvg technique, with 3-D reconstructions. COMPARISON: MRI and [...] Signed: Lakshmi Amador Verified Date/Time: 02/11/2021 16:54:16 [facility] without IV [id number] 16:54:00Interface, External Ris In - 02/11/2021 4:56 PM CDTFINAL REPORT MR, BRAIN, WITHOUT CONTRAST, MR, MRA, BRAIN, WITHOUT CONTRAST, MR, MRA, NECK, WITHOUT IV CONTRAST INDICATION: Stroke, follow upIschemic Stroke Evaluation TECHNIQUE: Multiplanar, multisequence MR imaging of the brain without intravenous contrast.MRA of the head utilizing 3-D qxcw-lo-zvxbbl technique, with 3-D reconstructions.MRA of the neck utilizing 2-D and 3-D uhhl-pa-esilum technique, with 3-D reconstructions. COMPARISON: MRI and [...] Signed: Lakshmi Amador Verified Date/Time: 02/11/2021 16:54:16 [facility] 14:02:00 Test Item Value Reference Range Interpretation Comments RPR (test code = 37154-2) Nonreactive Nonreactive Lab Interpretation (test code = Normal 21299-1) [facility] 14:02:00 Test Item Value Reference Range Interpretation Comments RPR SCREEN (BEAKER) (test code = Nonreactive Nonreactive 420) Hemoglobin [id number] 09:35:00 Test Item Value Reference Range Interpretation Comments Hemoglobin A1C (test code = 4548-4) 6.0 % 4.3-6.1 Lab Interpretation (test code = Normal 10433-3) [facility]MO[facility] [id number] 09:35:00 Test Item Value Reference Range Interpretation Comments HEMOGLOBIN A1C (BEAKER) (test code = 6.0 % 4.3-6.1 368) Rapid drug screen, [id number] 07:26:00 Test Item Value Reference Range Interpretation Comments Barbiturate Screen Negative Negative (test code = 42220-0) Benzodiazepine Screen Negative Negative (test code = 72604-8) Cocaine (Metab.) Negative Negative Screen (test code = 3397-7) Methadone Screen (test Negative Negative code = 12739-8) Opiate Screen (test Negative Negative code = 33607-2) Cannabinoid Screen Negative Negative (test code = 94341-7) Amph/Methamph Screen Negative Negative (test code = 32647-9) Phencyclidine Screen Negative Negative (test code = 41167-3) pH, UA (test code = 6.5 5.0-8.0 5803-2) SOMMER (test code = SOMMER) DRUG CUTOFF CONC.Cocaine 300 ng/mL Cannabinoid 50 ng/mLBenzodiazepine 200 ng/mLBarbiturate 200 ng/mLPhencyclidine 25 ng/mLOpiate 300 ng/mLMethadone 300 ng/mLAmphetamine/ 1000 ng/mL Methamphetamine This assay provides an unconfirmed qualitative test result for the clinical management of patients in emergency situations. Chain of custody not maintained. Some ktfy-rwj-beenssm medications, as well as adulterants, may cause inaccurate results. Clinical correlation should be applied. A more comprehensive drug screen or confirmation of a detected drug may be performed upon request.Community Health Nurse Staff ID - VIET M Lab Interpretation Normal (test code = 05160-7) [facility] Center[facility] SCREEN, [id number] 07:26:00 Test Item Value Reference Range Interpretation [...] situations. Chain of custody not maintained. Some bayy-bkf-outlmzh medications, as well as adulterants, may cause inaccurate results. Clinical correlation should be applied. A more comprehensivedrug screen or confirmation of a detected drug may be performed upon request.Community Health Nurse Staff ID - VIET MUrinalysis with Microscopic If [id number] 07:11:00 Test Item Value Reference Range Interpretation Comments Color, UA (test code = Light Yellow 5778-6) Clarity, UA (test code = Clear 5767-9) Specific [place], UA (test 1.012 1.001-1.035 code = 5811-5) pH, UA (test code = 6.5 5.0-8.0 5803-2) Protein, UA (test code = Negative Negative 11906-8) Glucose, UA (test code = Negative Negative 365) Ketones, UA (test code = Negative Negative 2514-8) Bilirubin, UA (test code = Negative Negative 38560-9) Blood, UA (test code = Small Negative A 39214-3) Nitrite, UA (test code = Negative Negative 5802-4) Leukocytes, UA (test code Small Negative A = 5799-2) Urobilinogen, UA (test 0.2 mg/dL 0.2-1 code = 78939-9) Specimen Source (test code = 2795) SOMMER (test code = SOMMER) Community Health Nurse Staff ID - [auto]Community Health Nurse Staff ID - tech Lab Interpretation (test Abnormal code = 20217-5) [facility] CenterUrinalysis Microscopic [id number] 07:11:00 Test Item Value Reference Range Interpretation Comments RBC, UA (test 11 See_Comment [Automated me ssage] code = 51516-0) The system [facility] generated this result transmitted ref erence range: /HPF. Th e reference range was not used to int erpret this result as normal/abnormal . WBC, UA (test 11 See_Comment [Automated me ssage] code = 5821-4) The system wh ich generated this result transmitted ref erence range: /HPF. Th e reference range was not used to int erpret this result as normal/abnormal . Mucus (test Rare code = 8247-9) Squam Epithel, 3 See_Comment [Automated m essage] UA (test code = The system [facility] 06535-7) generated this result transmitted ref erence range: /HPF. Th e reference range was not used to int erpret this result as normal/abnormal . SOMMER (test code Community Health Nurse Staff ID - tech = SOMMER) [facility] CenterURINALYSIS WITH MICROSCOPIC IF [id number] 07:11:00 Test Item Value Reference Range Interpretation [...] = 463) SOURCE(BEAKER) (test code = 2795) Community Health Nurse Staff ID - [auto][facility] Nurse Staff ID - techURINALYSIS PEAXOWNJYKY0217-09-77 07:11:00 Test Item Value Reference Range Interpretation Comments RBC UA (BEAKER) (test code = 519) 11 /HPF WBC UA (BEAKER) (test code = 520) 11 /HPF MUCUS (BEAKER) (test code = 1574) Rare SQUAMOUS EPITHELIAL (BEAKER) (test 3 /HPF code = 516) [facility] Nurse Staff ID - techDigoxin [id number] 06:22:00 Test Item Value Reference Range Interpretation Comments Digoxin Lvl (test code = <0.30 0.8-2 L 46315-1) SOMMER (test code = SOMMER) [facility] Nurse Staff ID - MACHELLE L Lab Interpretation (test Abnormal code = 27389-1) [facility] CenterDIGOXIN [id number] 06:22:00 Test Item Value Reference Range Interpretation Comments DIGOXIN LEVEL (BEAKER) (test code = < ng/mL 0.80-2.00 L 669) [facility] Nurse Staff ID - MACHELLE KMsvaknmnrvgn3764-79-04 05:58:00 Test Item Value Reference Range Interpretation Comments Homocysteine (test code = 7.3 umol/L 5.1-15.4 07027-4) SOMMER (test code = SOMMER) Community [facility] Nurse Staff ID - SHAMIKAAYA L Lab Interpretation (test Normal code = 62258-3) [facility] CenterTSH/Free T4 If [id number] 05:58:00 Test Item Value Reference Range Interpretation Comments TSH (test code = 4.368 See_Comment [Automated 89562-2) message] The system which generated this result transmit aida reference range : 0.350 - 4.940 uIU/mL. The reference range was not used to interpret this result as normal/abnormal . SOMMER (test code = SOMMER) [facility] Nurse Staff ID - MACHELLE L Lab Interpretation Normal (test code = 25886-8) [facility] CenterVitamin B12 and [id number] 05:58:00 Test Item Value Reference Range Interpretation Comments Vitamin B12 (test 557 pg/mL 213-816 code = 2132-9) Folate (test code = 11.20 ng/mL See_Comment [Automa aida 2284-8) message] The system which generated this result transmit aida reference range : >=7.00. The reference range was not used to interpret this result as normal/abnormal . SOMMER (test code = SOMMER) [facility] Nurse Staff ID - MACHELLE L Lab Interpretation Normal (test code = 11868-6) [facility] CenterHOMOCYSTEINE2021-05-20 05:58:00 Test Item Value Reference Range Interpretation Comments HOMOCYSTEINE (BEAKER) (test code = 7.3 umol/L 5.1-15.4 642) [facility] Nurse Staff ID - MACHELLE LTSH/FREE T4 IF [id number] 05:58:00 Test Item Value Reference Range Interpretation Comments THYROID STIMULATING HORMONE 4.368 uIU/mL 0.350-4.940 (BEAKER) (test code = 772) [facility] Nurse Staff ID Jodie CARTY LVITAMIN B12 AND [id number] 05:58:00 Test Item Value Reference Range Interpretation Comments VITAMIN B12 557 pg/mL 213-816 (BEAKER) (test code = 774) FOLATE (BEAKER) 11.20 ng/mL See_Comment [Automated message] (test code = 362) The system which generated this result transmitted ref erence range: >=7.00. The reference range was not used to interpr et this result as normal/abnormal . Community Health Nurse Staff ID Jodie CRATY LC-Reactive [id number] 04:54:00 Test Item Value Reference Range Interpretation Comments CRP (test code = 676) 0.81 mg/dL 0-0.5 H SOMMER (test code = SOMMER) Community Health Nurse Staff ID Jodie CARTY L Lab Interpretation (test Abnormal code = 22269-3) [facility] CenterMAGNESIUM2021-05-20 04:54:00 Test Item Value Reference Range Interpretation Comments MAGNESIUM (BEAKER) 2.1 mg/dL 1.6-2.6 Specimen slightly (test code = 627) hemolyzed Community Health Nurse Staff ID Jodie CARTY [id number] 04:54:00 Test Item Value Reference Range Interpretation Comments PHOSPHORUS (BEAKER) 4.3 mg/dL 2.3-4.7 Specimen slightly (test code = 604) hemolyzed Community Health Nurse Staff ID - MACHELLE LBASIC METABOLIC [id number] 04:54:00 Test Item Value Reference Range Interpretation [...] S NOT APPLICABLE FOR DIALYSIS PATIEN TS. Community Health Nurse Staff ID - PIAYA LC-REACTIVE [id number] 04:54:00 Test Item Value Reference Range Interpretation Comments C-REACTIVE PROTEIN (BEAKER) (test 0.81 mg/dL 0.00-0.50 H code = 676) [facility] Nurse Staff ID - PIAYA LCBC W/PLT COUNT & AUTO [id number] 02:54:00 Test Item Value Reference Range Interpretation [...] = 2801) RAD, CHEST, 1 VIEW, NON [id number] 22:40:00Reason for exam:->strokeShould this be performed at the bedside?->Yes [facility] 1980 Sex: FFINAL REPORT RAD, CHEST, 1 VIEW, NON DEPT TECHNIQUE: Frontal view(s) of the chest. INDICATION: stroke. COMPARISON: 08/20/2018 chest radiograph FINDINGS/IMPRESSION: Lines/Tubes: Unchanged 2-lead pacemaker Lungs/pleura: No focal consolidation or definite interstitial pulmonary edema. No pleural effusion. No pneumothorax. Heart and Mediastinum: Unremarkable. Soft Tissues and Bones: Unremarkable. Signed: Wilmer Nieveskarenort Verified Date/Time: 02/10/2021 22:40:02 Reading Location: [address] Transitional Reading Room XR chest 1 view portable / [id number] 22:40:00Interface, External Ris In - 02/10/2021 10:42 PM CDTFINAL REPORT RAD, CHEST, 1 VIEW, NON DEPT TECHNIQUE: Frontal view(s) of the chest. INDICATION: stroke. COMPARISON: 08/20/2018 chest radiograph FINDINGS/IMPRESSION: Lines/Tubes: Unchanged 2-lead pacemaker Lungs/pleura: No focal consolidation or definite interstitial pulmonary edema. No pleural effusion. No pneumothorax. Heart and Mediastinum: Unremarkable. Soft Tissues and Bones: Unremarkable. Signed: Wilmer Nievesort Verified Date/Time: 02/10/2021 22:40:02 Reading Location: [address] Transitional Reading [facility] & AUTO [id number] 22:16:00 Test Item Value Reference Range Interpretation [...] Range Interpretation Comments BNP (test code = 91553-0) <10 0-100 SOMMER (test code = SOMMER) Community Health Nurse Staff ID - BS Lab Interpretation (test Normal code = 72804-6) [facility] CenterB-TYPE NATRIURETIC FACTOR (BNP)2021-02-10 22:04:00 Test Item Value Reference Range Interpretation Comments B-TYPE NATRIURETIC PEPTIDE (BEAKER) < pg/mL 0-100 (test code = 700) Community Health Nurse Staff ID - BSHigh Sensitivity Troponin I ([facility]/Haley Only)2021-02-10 21:57:00 Test Item Value Reference Range Interpretation Comments Troponin I HS <4 See_Comment [Automated (test code = message] The 06524-5) system which generated this result transmitted reference range : <=17 pg/ml. The reference range was not used to interpret this result as normal/abnormal . SOMMER (test code = Community Health Nurse Staff ID - SOMMER) BSThe MOLD MECHANIC STAT High Sensitivity Troponin-I results should be used in conjunction with other diagnostic information such as ECG, clinical observations and information, and patient symptoms to aid in the diagnosis of [facility]. Lab Interpretation Normal (test code = 81251-8) [facility] CenterHIGH SENSITIVITY TROPONIN [id number] 21:57:00 Test Item Value Reference Range Interpretation Comments HIGH SENSITIVITY < pg/ml See_Comment [Automated message] TROPONIN I (test code = The system which 8963328) generated this result transmitted ref erence range: <=17. Th e reference range was not used to interpr et this result as normal/abnormal . Community Health Nurse Staff ID - BSThe MOLD MECHANIC STAT High Sensitivity Troponin-I results should be used in conjunctionwith other diagnostic information such as ECG, clinical observations and information, and patient symptoms to aid in the diagnosis of [facility].Lipid [id number] 21:54:00 Test Item Value Reference Range Interpretation Comments Triglycerides (test 171 mg/dL Specimen code = 2571-8) markedly hemolyzed Cholesterol (test 218 mg/dL Specimen code = 2093-3) markedly hemolyzed HDL (test code = 47 mg/dL 2084-9) LDL Calculated (test 137 mg/dL code = 05676-6) SOMMER (test code = Triglyceride SOMMER) Reference Range: Low Risk <150 Borderline 150-199 High Risk 200-499 Very High Risk >=500 Cholesterol Reference Range: Low Risk <200 Borderline 200-239 High Risk >240 HDL Cholesterol Reference Range: Low Risk >=60 High Risk <40 LDL Cholesterol Reference Range: Optimal <100 Near Optimal 100-129 Borderline 130-159 High 160-189 Very High >=190 Community Health Nurse Staff ID - BS [facility] CenterLIPID [id number] 21:54:00 Test Item Value Reference Range Interpretation [...] Borderline 130-159 High 160-189 Very High >=190 Community Health Nurse Staff ID - BSComprehensive metabolic [id number] 21:52:00 Test Item Value Reference Range Interpretation Comments Protein, Total 8.0 See_Comment Specimen ig htly (test code = hemolyzed 2884-2) [Automated message] The system which generated this result transmit aida reference range : 6.0 - 8.3 gm/dL . The reference range was not u sed to interpret th is result as normal/abnormal . Albumin (test code 4.2 g/dL 3.5-5 Specimen slightly = 79744-5) hemolyzed Alkaline 135 U/L 40-150 Phosphatase (test code = 6768-6) Total Bilirubin 0.2 mg/dL 0.2-1.2 Specimen [facility] (test code = hemolyzed 1974-2) Sodium (test code = 139 meq/L 507-618 3901-2) Potassium (test 4.5 meq/L 3.5-5.1 Specimen [facility] code = 2823-3) hemolyzed Chloride (test code 103 meq/L 98-107 = 2075-0) CO2 (test code = 25 meq/L 22-29 2027-9) BUN (test code = 9 mg/dL 7-21 3094-0) Creatinine (test 0.78 mg/dL 0.57-1.25 Specimen [facility] code = 2160-0) hemolyzed Glucose (test code 105 mg/dL 70-105 = 2345-7) Calcium (test code 9.6 mg/dL 8.4-10.2 = 55990-0) AST (test code = 28 U/L 5-34 Specimen [facility] 1920-8) hemolyzed ALT (test code = 52 U/L 6-55 Specimen [facility] 1742-6) hemolyzed EGFR (test code = 82 mL/min/1.73 [place] [address]-5) NOT ACCURATE CREATININE CLEARANCE IN PREDICTING GLOMERULAR FILTRATION RATE . ESTIMATED GFR I S NOT APPLICABLE FOR DIALYSIS PATIEN TS. SOMMER (test code = Community Health Nurse Staff ID - BS SOMMER) [facility] CenterCreatine Kinase (CK)2021-02-10 21:52:00 Test Item Value Reference Range Interpretation Comments Total CK (test code = 70 U/L 29-200 2157-6) SOMMER (test code = SOMMER) Community Health Nurse Staff ID - BS Lab Interpretation (test Normal code = 91662-9) [facility] CenterMAGNESIUM2021-05-19 21:52:00 Test Item Value Reference Range Interpretation Comments MAGNESIUM (BEAKER) 2.2 mg/dL 1.6-2.6 Specimen slightly (test code = 627) hemolyzed Community Health Nurse Staff ID - [id number] 21:52:00 Test Item Value Reference Range Interpretation Comments PHOSPHORUS (BEAKER) 4.4 mg/dL 2.3-4.7 Specimen slightly (test code = 604) hemolyzed Community Health Nurse Staff ID - BSCOMPREHENSIVE METABOLIC [id number] 21:52:00 Test Item Value Reference Range Interpretation [...] S NOT APPLICABLE FOR DIALYSIS PATIEN TS. Community Health Nurse Staff ID - BSCREATINE KINASE (CK)2021-02-10 21:52:00 Test Item Value Reference Range Interpretation Comments CREATINE KINASE TOTAL (BEAKER) (test 70 U/L 29-200 code = 380) Community Health Nurse Staff ID - [id number] 21:46:00 Test Item Value Reference Range Interpretation Comments PTT (test code = 66481-5) 30.5 See_Comment [ Automated message] The system i[employer] generated this result transmitted ref erence range: 22.5 - 3 6.0 seconds. The re ference range was not u sed to interpret this result as normal/abnor mal. Lab Interpretation (test Normal code = 24481-2) [facility] CenterLactic acid, [id number] 21:46:00 Test Item Value Reference Range Interpretation Comments Lactate, Venous (test 1.96 mmol/L 0.5-2.2 Specim en code = 2872) markedly hemolyzed SOMMER (test code = SOMMER) Community Health Nurse Staff ID - BS Lab Interpretation Normal (test code = 20398-2) [facility] CenterAPTT2021-05-19 21:46:00 Test Item Value Reference Range Interpretation Comments PARTIAL THROMBOPLASTIN TIME 30.5 seconds 22.5-36.0 (BEAKER) (test code = 760) LACTIC ACID, [id number] 21:46:00 Test Item Value Reference Range Interpretation Comments LACTATE BLOOD VENOUS 1.96 mmol/L 0.50-2.20 Specime n markedly (2) (BEAKER) (test hemolyzed code = 2872) Community Health Nurse Staff ID - BSProthrombin time/[id number] 21:45:00 Test Item Value Reference Interpretation Comments [...] valves. Lab Interpretation Normal (test code = 43898-6) [facility] CenterPROTHROMBIN TIME/[id number] 21:45:00 Test Item Value Reference Range Interpretation Comments PROTIME (BEAKER) 12.7 seconds 11.9-14.2 (test code = 759) INR (BEAKER) (test 0.98 See_Comment [Automat ed message] code = 370) The system i[employer] generated this result transmitted ref erence range: <=5.90. The reference range was not used to int erpret this result as normal/abnormal . RECOMMENDED COUMADIN/WARFARIN INR THERAPY RANGESSTANDARD DOSE: 2.0 - 3.0 Includes: PROPHYLAXIS forvenous thrombosis, systemic embolization; TREATMENT for venous thrombosis and/or pulmonary embolus.HIGH RISK: Target INR is 2.5-3.5 for patients with mechanical heart valves.POC-Glucose [id number] 21:39:00 Test Item Value Reference Range Interpretation Comments POC-Glucose Meter (test 93 mg/dL 70-110 : TE STED AT [facility] code = 1538) [address] [facility], [address]: Community Health Nurse Staff/Techni rhonda ID = [id number] for AILYN JAVIER Lab Interpretation (test Normal code = 53266-5) [facility] CenterPOCT-GLUCOSE [id number] 21:39:00 Test Item Value Reference Range Interpretation Comments POC-GLUCOSE METER 93 mg/dL 70-110 : TESTED Yara Quach [facility] [address] (ARNOL) (test code = [place], 1538) [address]: Community Health Nurse Staff/Techni rhonda ID = [id number] for GERTRUDE SHAY [id number] 15:45:00 Test Item Value Reference Range Interpretation Comments SURG (test code = SURG) RUN DATE: 09/30/20 [facility] - LAB PAGE 1 RUN TIME: 1545 Specimen Inquiry RUN USER: INTERFACE PATIENT: ADAM MARSH LOC: GA U #: [id number] AGE/SX: 40/F [facility] Linus Boone MD : [birth year] BED: DIS: [place] [facility] [place] SPEC #: PMC:S RECD: 09/29/20 STATUS: MACIEL DEY #: [id number] WU: 09/29/[address] [facility] [address]: Linus Boone MD ENTERED: 09/29/20 SP TYPE: SURG OTHR DR: Undefined Provider ORDERED: SURG PATH LVL 4 COPIES TO: Linus Boone MD [address] [place] [address] Undefined Provider HISTOLOGY: TISSUE ID BLK PCS DHIRAJ LEV PROCEDURE DISPOSITION ____ ___ ___ ___ STOMACH, NOS A 1 2 PROCEDURES: SURG PATH LVL 4 (09/29/20) TISSUES: A. STOMACH, NOS - GASTRIC BIOPSY CLINICAL HISTORY R10.13, K21.9, K92.0, R14.0, R11.2, R19.7, R19.4 CPT CODES CPT CODE(S): 20181 , , , , , , FINAL DIAGNOSIS Stomach, biopsy: MILD CHRONIC GASTRITIS NEGATIVE FOR INTESTINAL METAPLASIA, DYSPLASIA, OR MALIGNANCY NEGATIVE FOR HELICOBACTER PYLORI ORGANISMS GROSS DESCRIPTION Gastric biopsy. Received in formalin are two wilkinson tissue fragments, 0.4 cm each, all as A. bk/nr Grossing performed at [facility] Pathology, [address] [place] [address], [address], [place] [address]. Disbursing Officer: Aditya Hanson M.D. CONTINUED ON NEXT PAGE RUN DATE: 09/30/20 [facility] PAGE 2 RUN TIME: 1545 Specimen Inquiry RUN USER: INTERFACE SPEC #: [facility]:S-[id number] PATIENT: ADAM MARSH #[id number] (Continued) MICROSCOPIC DESCRIPTION Gastric biopsy. Sections demonstrate gastric mucosa with mild chronic inflammation. No dysplasia or malignancy is identified. No evidence of Helicobacter pylori organisms or intestinal metaplasia is seen. Signed SIGNATURE ON FILE Hector Issa Solitario 09/30/20 1545 END OF REPORT COVID 19 INHOUSE [id number] 13:41:00 Test Item Value Reference Range Interpretation Comments COVID 19 INHOUSE AG NEGATIVE Negative Per marino facturer, (test code = negative result s should [id number]) be treated aspr esumptive and, if inconsi [...] symptoms co nsistent with COVID-19. BASIC METABOLIC [id number] 13:40:00 Test Item Value Reference Range Interpretation [...] MG/DL 8.5-10.1 N - XR CHEST 1 [id number] 13:33:00 [facility] 1980 Sex: F Name: ADAM MARSH [facility] : [birth year] Age/S: 40 / F [address] [address] [place] Unit #: [id number] Loc: [place] [address] Phys: Linus Boone MD Acct: [id number] Dis Date: [place] [facility] [place] #: [phone] Exam Date: 09/28/2020 1326 FAX #: Reason: PREOP EXAMS: CPT: [id number] XR CHEST 1 V 14360 Fluoro Time: DAP (Gy m2): Air Kerma [...] normal. IMPRESSION: No acute cardiopulmonary process. at 1001 Reported and signed by: Lynda Pitts M.D. CC: Linus Boone MD PAGE 1 Signed Report Name: ADAM MARSH [facility] : 1980 Age/S: 40 / F [address] [place] [address] Unit #: [id number] Loc: [place] [address] Phys: Linus Boone MD Acct: [id number] Dis Date: [place] [facility] [place] #: [phone] Exam Date: 09/28/2020 1326 FAX #: Reason: PREOP EXAMS: CPT: [id number] XR CHEST 1 V 47690 Fluoro Time: DAP (Gy m2): Air Kerma (mGy): <Continued> Technologist: RT Emily(R)(CT) Trnscb Date/Time: 09/28/2020 (0293) t16 Orig Print D/T: S: 09/28/2020 (1749) PAGE 2 SignedReportPROTHROMBIN [id number] 13:29:00 Test Item Value Reference Range Interpretation Comments PT PATIENT (test code = PTP) 10.6 SECONDS 9.3-12.9 N INTERNATIONAL NORMAL RATIO 0.95 INR Unit 0.8-1.2 N (test code = INR) THROMBOPLASTIN TIME [id number] 13:29:00 Test Item Value Reference Range Interpretation Comments THROMBOPLASTIN TIME PARTIAL 28.0 SECONDS 26-35 N (test code = PTT) CBC W/AUTO [id number] 13:26:00 Test Item Value Reference Range Interpretation [...] code NO DIFF/SCN CRITERIA = MDIFF) POCT-GLUCOSE [id number] 10:22:00 Test Item Value Reference Range Interpretation Comments POC-GLUCOSE METER 102 mg/dL 70-110 TESTED AT [facility] [address] (ARNOL) (test code = [place] 1538) [address] MR, MRA, BRAIN, WITHOUT [id number] 09:32:00Reason for exam:->Ischemic Stroke EvaluationFINAL REPORT MRA Head CLINICAL HISTORY: Ischemic Stroke TECHNIQUE: MRA of the head utilizing 3-D igni-cj-avxrxt technique, with 3-D reconstructions. COMPARISON: None FINDINGS: There is no evidence of intracranial aneurysm, focal stenosis, or major branch vessel occlusion. IMPRESSION: No evidence for a major [place] proximal branch vessel occlusion. MRA Neck CLINICAL HISTORY: Ischemic Stroke TECHNIQUE: MRA of the neck utilizing 2-D and 3-D bvhp-mt-moudzd technique, with 3-D reconstructions. COMPARISON: None FINDINGS: The carotid arteries in the neck are patent including their bifurcations. There is antegrade flow in the vertebral arteries in the neck. IMPRESSION: No evidence of hemodynamically significant stenosis in the cervical carotid or vertebral arteries by NASCET criteria. Signed: Santos Winn MDReport Verified Date/Time: 08/21/2018 09:32:09 Reading Location: [address] Neuro Reading Room MR, MRA, NECK, WITHOUT IV [id number] 09:32:00Reason for exam:->Ischemic Stroke EvaluationFINAL REPORT MRA Head CLINICAL HISTORY: Ischemic Stroke TECHNIQUE: MRA of the head utilizing 3-D lnrx-hq-clxngn technique, with 3-D reconstructions. COMPARISON: None FINDINGS: There is no evidence of intracranial aneurysm, focal stenosis, or major branch vessel occlusion. IMPRESSION: No evidence for a major [place] proximal branch vessel occlusion. MRA Neck CLINICAL HISTORY: Ischemic Stroke TECHNIQUE: MRA of the neck utilizing 2-D and 3-D lqqc-oc-lvgvwn technique, with 3-D reconstructions. COMPARISON: None FINDINGS: The carotid arteries in the neck are patent including their bifurcations. There is antegrade flow in the vertebral arteries in the neck. IMPRESSION: No evidence of hemodynamically significant stenosis in the cervical carotid or vertebral arteries by NASCET criteria. Signed: Santos Winnort Verified Date/Time: 08/21/2018 09:32:09 Reading Location: [address] Neuro Reading Room MR, BRAIN, WITHOUT [id number] 09:25:00Reason for exam:- >Ischemic Stroke EvaluationFINAL REPORT [...] Winn Verified Date/Time: 08/21/2018 09:25:25 Reading Location: [address] Neuro R eading Room POCT-GLUCOSE [id number] 21:26:00 Test Item Value Reference Range Interpretation Comments POC-GLUCOSE METER 119 mg/dL 70-110 H TESTED AT [facility] [address] ([facility]) (test code = AYLIN [place] 1538) [address] POCT-GLUCOSE [id number] 18:03:00 Test Item Value Reference Range Interpretation Comments POC-GLUCOSE METER 119 mg/dL 70-110 H TESTED AT [facility] 67[address] (BEAKER) (test code = AYLIN Rivera [place] 1538) [address] POCT-GLUCOSE [id number] 12:39:00 Test Item Value Reference Range Interpretation Comments POC-GLUCOSE METER 120 mg/dL 70-110 H TESTED AT [facility] 67[address] (BEAKER) (test code = AYLIN Rivera [facility] 1538) [address] RAD, CHEST, 1 VIEW, NON [id number] 12:04:00Reason for exam:->To Locate Heart Device (Pacemaker)Should [...] MDReport Verified Date/Time: 08/20/2018 12:04:06 Reading Location: [facility] Radiology Reading Room POCT-GLUCOSE [id number] 09:17:00 Test Item Value Reference Range Interpretation Comments POC-GLUCOSE METER 121 mg/dL 70-110 H TESTED AT [facility] [address] [facility] (test code = AYLIN Rivera [facility] 1538) [address] BASIC METABOLIC [id number] 06:56:00 Test Item Value Reference Range Interpretation [...] NOT APPLICABLE FOR DIALYSIS PATIEN TS. POCT-GLUCOSE [id number] 21:09:00 Test Item Value Reference Range Interpretation Comments POC-GLUCOSE METER 109 mg/dL 70-110 TESTED AT [facility] 6720 (BEAKER) (test code = [place] 1538) [id number] POCT-GLUCOSE [id number] 17:15:00 Test Item Value Reference Range Interpretation Comments POC-GLUCOSE METER 117 mg/dL 70-110 H TESTED AT [facility] 67[address] [facility] (test code = [place] 1538) [id number] VITAMIN B12 AND [id number] 06:39:00 Test Item Value Reference Range Interpretation Comments VITAMIN B12 (BEAKER) (test code = 524 pg/mL 213-816 774) FOLATE (BEAKER) (test code = 362) 13.5 ng/mL >=7.0 BASIC METABOLIC [id number] 05:48:00 Test Item Value Reference Range Interpretation [...] S NOT APPLICABLE FOR DIALYSIS PATIEN TS. [id number] 15:42:00 Test Item Value Reference Range Interpretation Comments RPR SCREEN (BEAKER) (test code = Nonreactive Nonreactive 420) HEMOGLOBIN [id number] 09:14:00 Test Item Value Reference Range Interpretation Comments HEMOGLOBIN A1C (BEAKER) (test code = 5.3 % 4.3-6.1 368) TSH/FREE T4 IF [id number] 04:49:00 Test Item Value Reference Range Interpretation Comments THYROID STIMULATING HORMONE 3.18 uIU/mL 0.35-4.94 (BEAKER) (test code = 772) HEPATIC FUNCTION [id number] 04:38:00 Test Item Value Reference Range Interpretation [...] (test code = 347) hemolyzed BASIC METABOLIC [id number] 04:38:00 Test Item Value Reference Range Interpretation [...] NOT APPLICABLE FOR DIALYSIS PATIEN TS. LIPID [id number] 04:38:00 Test Item Value Reference Range Interpretation [...] 100-129 Borderline 130-159 High 160-189 Very High >=190CBC (HEMOGRAM ONLY)2018-08-18 03:55:00 Test Item Value Reference [...] (test code = 413) AFB Culture and [id number] 13:24:00Specimen/Source: Wound/PACEMAKERCollected: 09/05/2017 19:45 Status: Final Last Updated: 11/01/2017 13:24 [id number]-Cgwue-Vdwxzmazhynn (Final) (Final) 09/07/17 No acid fast bacill seen on direct smear Culture Result (Final) (Final) 11/01/17 No growth of AFB at six (6) weeksFungus Culture with [id number] 12:12:00 Specimen/Source: Wound/PACEMAKERCollected: 09/05/2017 19:45 Status: Final Last Updated: 10/22/2017 12:12 Fungal Smear Result (Final) (Final) 09/06/17 No yeast or hyphae seen Culture Result (Final) (Final) 10/22/17 No fungus isolated at 6 weeksCulture, Blood [id number] 08:23:00Specimen: BloodCollected: 09/04/2017 20:30 Status: Final Last Updated: 09/10/2017 08:23 Culture Result (Final) (Final) No Growth After 5 DaysCulture, Blood [id number] 08:23:00Specimen: BloodCollected: 09/04/2017 20:15 Status: Final Last Updated: 09/10/2017 08:23 Culture Result (Final) (Final) No Growth After 5 DaysCulture, Wound [id number] 08:52:00Specimen: WoundCollected: 09/05/2017 19:45 Status: Final Last Updated: 09/08/2017 08:52 Gram Stain (Final) (Final) 09/06/17 No organisms seen, Few WBC's Culture Result (Final) (Final) 09/08/17 Anaerobic culture:No anaerobes isolated at 3 days Isolate (Final) (Final) 09/07/17Few Staph-coag positive Isolate Staph-coag positive JERMAINE (mcg/ml) Amoxicillin/Clav (AUG)<=4/2 Susceptible Ampicillin (AM) >8 Resistant Ampicillin/Sulb (A/S) <=8/4 Susceptible Cefazolin (CFZ) <=4 Susceptible Ceftriaxone (WRAPPING MACHINE HELPER) <=4 Susceptible Chloramphenicol (C) <=8 Susceptible Ciprofloxacin (CP) <=1 Susceptible Clindamycin (CM) 0.5 Susceptible Erythromycin (E) <=0.25 Susceptible Gentamicin (GM) <=1 Susceptible Imipenem (IMP) <=4 Susceptible Levofloxacin (LEV) <=0.5 Susceptible Linezolid (LNZ) 4 Susceptible Oxacillin (OX1) 0.5 Susceptible Penicillin (P) >8 Resistant Rifampin (RA) <=1 Susceptible Tetracycline (TE) <=1 Susceptible Trimethoprim/Sulfa <=0.5/9.Susceptible (SXT) 5 Vancomycin (VA) 2 SusceptibleRenal [id number] 08:51:00 Test Item Value Reference Range Interpretation [...] National Kidney Foundation,http :[email or web address] ep.nih.gov CBC with [id number] 07:39:00 Test Item Value Reference Range Interpretation [...] code = ALYMPH) 1.7 K/cumm 0.5-4.6 N [place] Abs (test code = AMONO) 0.3 K/cumm 0.0-1.2 N Eos Abs (test code = AEOS) 0.29 K/cumm 0.00-0.74 N Baso Abs (test code = ABASO) 0.0 K/cumm 0.00-0.21 N Vancomycin, [id number] 12:33:00 Test Item Value Reference Range Interpretation Comments Vanco, Trou (test code = VANTR) 7.9 ug/mL 10.0-20.0 L Magnesium, [id number] 06:37:00 Test Item Value Reference Range Interpretation Comments Magnesium (test code = MG) 2.4 mg/dL 1.7-2.5 N Renal [id number] 06:29:00 Test Item Value Reference Range Interpretation [...] National Kidney Foundation,http ://nkd ep.nih.gov BHCG, Serum, [id number] 06:26:00 Test Item Value Reference Range Interpretation Comments Preg Qual [Se] (test code = BSHCG) Negative Negative N CBC with [id number] 06:24:00 Test Item Value Reference Range Interpretation [...] code = ALYMPH) 1.6 K/cumm 0.5-4.6 N [place] Abs (test code = AMONO) 0.4 K/cumm 0.0-1.2 N Eos Abs (test code = AEOS) 0.18 K/cumm 0.00-0.74 N Baso Abs (test code = ABASO) 0.0 K/cumm 0.00-0.21 N XR CHEST 1 [id number] 16:29:55XR CHEST 1 VIEWLOCATION: [id number]: None.INDICATION: REVIEW PICC LINE PLACEMENTDISCUSSION:AP chest and [...] = TSH) 3.44 mIU/mL 0.270-4.200 N Lipid [id number] 05:47:00 Test Item Value Reference Range Interpretation Comments Cholesterol (test 160 mg/dL 0-200 N code = CHOL) Triglycerides (test 126 mg/dL 9-200 N code = TRIG) HDL (test code = 35 mg/dL 50-60 L HDL) Chol/HDL (test code 4.6 Ratio 0.0-4.4 H = CHOLPHDL) LDL, Calculated 100 0-130 N (NOTE)RISK O F HEART (test code = LDLC) DISEASEPu blished by [place] Heart AssociationAnal yte Optim al Boderline Increased RiskC HOL <200 200-239 >240TRI G <150 150-199 >200HDL Male: >60 <40HDL Female: >60 <50 LDL < 100 130-15 9 >160 LDL NEAR OPTIMAL IS 100- 129 VLDL (test code = 25 mg/dL 5-40 N VLDL) LDL/HDL (test code = 3 LDLPHDL) Basic Metabolic [id number] 05:47:00 Test Item Value Reference Range Interpretation [...] is not provided , and the patient isAfjavier-Maciel can, multiply by 1.2 12. If sex [...] the National Kidney Foundation,http ://nkd ep.nih.gov Magnesium, [id number] 05:47:00 Test Item Value Reference Range Interpretation Comments Magnesium (test code = MG) 2.3 mg/dL 1.7-2.5 N CBC with [id number] 05:36:00 Test Item Value Reference Range Interpretation [...] code = ALYMPH) 2.2 K/cumm 0.5-4.6 N [place] Abs (test code = AMONO) 0.3 K/cumm 0.0-1.2 N Eos Abs (test code = AEOS) 0.24 K/cumm 0.00-0.74 N Baso Abs (test code = ABASO) 0.0 K/cumm 0.00-0.21 N Partial Thromboplastin [id number] 21:26:00 Test Item Value Reference Range Interpretation Comments aPTT (test code = PTT) 29.00 seconds 24.39-37.25 N Prothrombin [id number] 21:26:00 Test Item Value Reference Range Interpretation Comments PT (test code = PT) 10.70 seconds 9.78-13.35 N INR (test code = INR) 0.95 Ratio 0.6-1.2 N Comprehensive Metabolic [id number] 21:23:00 Test Item Value Reference Range Interpretation [...] National Kidney Foundation,http ://nkd ep.nih.gov CBC with [id number] 21:16:00 Test Item Value Reference Range Interpretation [...] code = ALYMPH) 2.2 K/cumm 0.5-4.6 N [place] Abs (test code = AMONO) 0.4 K/cumm 0.0-1.2 N Eos Abs (test code = AEOS) 0.17 K/cumm 0.00-0.74 N Baso Abs (test code = ABASO) 0.1 K/cumm 0.00-0.21 N
[2021-03-13] MEDS ORDERED: LEVALBUTEROL 1.25 MG/3 ML NEB ONE (13:41)
[2021-03-13] MEDS ORDERED: METHYLPREDNISOLONE 125 MG INJ ONE (13:41)
--- NOTE | 2021-03-13 13:54 | RAD REPORT ---
EXAM DESCRIPTION: [facility] Single View03/13/2021 1:41 pm CLINICAL HISTORY: Shortness of breath COMPARISON: January 2021 FINDINGS: The lungs appear clear of acute infiltrate. The heart is normal size. Pacemaker leads are in place. IMPRESSION: No acute abnormalities displayed
[2021-03-13] MEDS ORDERED: ONDANSETRON 4 MG/2 ML VIAL ONE (14:03)
[2021-03-13] MEDS ORDERED: HYDROMORPHONE HCL 0.5 MG/0.5 ML INJ ONE ×2 (14:03→16:11)
[2021-03-13 14:10] LABS: Absolute Lymphocytes (CBC) 1.2 K/uL (0.7-4.9); Basophils % 0.3 % (0-1.3); Hematocrit 40.1 % (36.0-45.0); Lymphocytes % 14.4 % (15.3-44.8); MPV 8.6 fL (7.6-11.3); RBC Red Blood Cell Count 4.66 M/uL (3.86-4.86)
[2021-03-13 14:12] LABS: Protime INR 0.95
[2021-03-13 14:28] LABS: ALT/SGPT 31 U/L (12-78); AST/SGOT 20 U/L (15-37); Albumin 3.9 g/dL (3.4-5.0); Alkaline Phosphatase 120 U/L (45-117); BUN Blood Urea Nitrogen 10 mg/dL (7-18); Bicarbonate 26 mmol/L (21-32); Bilirubin Direct < 0.1 mg/dL (0-0.2); Bilirubin Total 0.3 mg/dL (0.2-1.0); Glucose Level 110 mg/dL (74-106); Magnesium 2.3 mg/dL (1.8-2.4); NT PRO-BNP 28 pg/mL (<125); Potassium 3.5 mmol/L (3.5-5.1); Protein, Total 7.8 g/dL (6.4-8.2); Sodium Level 141 mmol/L (136-145); Troponin (Emerg Dept Use Only) < 0.02 ng/mL (0.0-0.045)
[2021-03-13] MEDS ORDERED: PROMETHAZINE INJ 25 MG/ML AMP ONE (16:10)
--- NOTE | 2021-03-13 19:05 | ER ---
Nurse's Notes [facility] Name: Jenni Draper Age: 40 yrs Sex: Female : 1980 Arrival Date: 03/13/2021 Time: 12:59 Bed 15 Private MD: Diagnosis: Bronchitis, not specified as acute or chronic Presentation: 03/13 13:08 Chief complaint: Patient states: SOB that began 1 hour ago while shopping. Pt reports ss she was seen by her PCP yesterday for wheezing and a cough, diagnosed with a sinus infection "on top of chronic bronchitis" and prescribed prednisone and a Z-andrew. Pt is concerned because she vomited her prednisone this morning. Coronavirus screen: Client denies travel out of the [place] in the last 14 days. Ebola Screen: Patient denies exposure to infectious person. Patient denies travel to an Ebola-affected area in the 21 days before illness onset. Initial Sepsis Screen: Does the patient meet any 2 criteria? RR > 20 per min. HR > 90 bpm. Does the patient have a suspected source of infection? No. Patient's initial sepsis screen is negative. Risk Assessment: Do you want to hurt yourself or someone else? Patient reports no desire to harm self or others. Onset of symptoms was March 11, 2021. 13:08 Method Of Arrival: Ambulatory ss 13:08 Acuity: LYUBOV 3 ss Historical: - Allergies: 13:13 Adhesives; ss 13:13 Aspirin; ss 13:13 Bactrim; ss 13:13 Benadryl; ss 13:13 cefixime; ss 13:13 Cipro IV; ss 13:13 Clindamycin; ss 13:13 coconut oil; ss 13:13 Demerol; ss 13:13 Detrol; ss 13:13 Diltiazem; ss 13:13 Doxycycline; ss 13:13 FISH PRODUCT DERIVATIVES; ss 13:13 GABAPENTIN; ss 13:13 Iodine; ss 13:13 ivabradine; ss 13:13 Latex, Natural Rubber; ss 13:13 Levofloxacin; ss 13:13 Morphine; ss 13:13 PENICILLINS; ss 13:13 QUETIAPINE; ss 13:13 Seroquel; ss 13:13 Sulfa (Sulfonamide Antibiotics); ss 13:13 Suprax; ss 13:13 tolterodine; ss 13:13 tramadol; - Home Meds: 13:13 Abilify 10 mg Oral tab 1 tab once daily [Active]; albuterol sulfate 1.25 mg/3 mL Inhl ss nebu 3 mL 3 times per day [Active]; albuterol sulfate 1.25 mg/3 mL Inhl nebu 3 mL 3 times per day [Active]; alprazolam 0.25 mg Oral tab 1 tab nightly [Active]; atorvastatin 10 mg Oral tab 1 tab once daily [Active]; benztropine 1 mg Oral tab 1 tab 2 times per day [Active]; buspirone 15 mg Oral tab 1 tab 2 times per day [Active]; Coreg 25 mg Oral tab 1 tab 2 times per day [Active]; Daliresp 500 mcg Oral tab 1 tab once daily [Active]; digoxin 125 mcg Oral tab [Active]; Effexor XR 150 mg Oral cp24 1 cap once daily [Active]; Eliquis 5 mg Oral tab once a day [Active]; esomeprazole magnesium 40 mg Oral cpDR 1 cap once daily [Active]; Keppra 1,000 mg Oral tab 1 tab every 12 hours [Active]; loratadine 10 mg Oral tab 1 tab once daily [Active]; ProAir HFA 90 mcg/actuation inhalation HFAA 2 puffs every 6 hours [Active]; Topamax 100 mg Oral tab 2 tabs 2 times per day [Active]; venlafaxine 150 mg Oral cp24 1 cap once daily [Active]; Spiriva with HandiHaler 18 mcg inhalation CpDv 1 cap once daily [Active]; pregabalin 25 mg Oral 1 cap daily [Active]; - PMHx: 13:13 Asthma; Atrial Fib; CHF; mitral valve prolapse; Bronchitis; ss - PSHx: 13:13 pacemaker; Hysterectomy; Cholecystectomy; ss - Immunization history:: Adult Immunizations up to date. - Social history:: Smoking status: Patient denies any tobacco usage or history of. Screenin:13 Abuse screen: Denies threats or abuse. Nutritional screening: No deficits noted. vg1 Tuberculosis screening: No symptoms or risk factors identified. Fall Risk No fall in past 12 months (0 pts). No secondary diagnosis (0 pts). No IV (0 pts). Ambulatory Aid- Crutches/Cane/Walker (15 pts). Gait- Normal/Bed Rest/Wheelchair (0 pts) Mental Status- Oriented to own ability (0 pts). Total Jolly Fall Scale indicates No Risk (0-24 pts). Assessment: 13:09 General: Appears in no apparent distress. comfortable, Behavior is calm, cooperative. vg1 Pain: Complains of pain in chest Pain radiates to left arm Pain currently is 8 out of 10 on a pain scale. Pain began 1 hour ago. Neuro: Level of Consciousness is awake, alert, obeys commands, Oriented to person, place, time, situation. Cardiovascular: Patient's skin is warm and dry. Respiratory: Reports shortness of breath at rest on exertion cough that is dry, pain with cough Airway is patent Respiratory effort is even, unlabored, Breath sounds are clear bilaterally. GI: No signs and/or symptoms were reported involving the gastrointestinal system. : No signs and/or symptoms were reported regarding the genitourinary system. EENT: No signs and/or symptoms were reported regarding the EENT system. Derm: Skin is intact, is healthy with good turgor. Musculoskeletal: Circulation, motion, and sensation intact. 15:44 Reassessment: Patient appears in no apparent distress at this time. No changes from vg1 previously documented assessment. Patient and/or family updated on plan of care and expected duration. Pain level reassessed. Patient is alert, oriented x 3, equal unlabored respirations, skin warm/dry/pink. Pt c/o nausea, provider notified. 16:56 Reassessment: Patient appears in no apparent distress at this time. Patient and/or vg1 family updated on plan of care and expected duration. Pain level reassessed. Patient is alert, oriented x 3, equal unlabored respirations, skin warm/dry/pink. 18:55 Reassessment: Patient appears in no apparent distress at this time. No changes from vg1 previously documented assessment. Patient is alert, oriented x 3, equal unlabored respirations, skin warm/dry/pink. Vital Signs: 13:08 Pulse 115; Resp 26; Temp 98.2(TE); Pulse Ox 100% on R/A; Weight 58.97 kg; Height 4 ft. ss 11 in. (149.86 cm); Pain 8/10; 13:12 BP 116 / 83; vg1 14:00 BP 101 / 89; Pulse 115; Resp 24; Pulse Ox 100% on R/A; vg1 14:30 BP 106 / 64; Pulse 110; Resp 20; Pulse Ox 98% ; vg1 15:00 BP 105 / 81; Pulse 108; Resp 18; Pulse Ox 95% on R/A; vg1 15:30 BP 113 / 90; Pulse 107; Resp 22; Pulse Ox 99% ; vg1 16:30 BP 109 / 75; Pulse 105; Resp 16; Pulse Ox 97% on R/A; vg1 16:57 Pain 6/10; vg1 17:30 BP 100 / 61; Pulse 118; Resp 20; Pulse Ox 98% on R/A; vg1 18:30 BP 102 / 71; Pulse 106; Resp 14; Pulse Ox 96% on R/A; vg1 19:33 BP 104 / 68; Pulse 94; Resp 18; Pulse Ox 100% on R/A; ak2 13:08 Body Mass Index 26.26 (58.97 kg, 149.86 cm) ss ED Course: 12:59 Patient arrived in ED. ds1 13:00 Zurdo Prasad NP is PHCP. pm1 13:00 Germaine Tapia MD is Attending Physician. pm1 13:03 Lucinda Reyes, LAUREL is Primary Nurse. vg1 13:09 Triage completed. ss 13:13 Arm band placed on right wrist. ss 13:13 Patient has correct armband on for positive identification. Placed in gown. Bed in low vg1 position. Call light in reach. Side rails up X 1. Adult w/ patient. 13:30 Initial lab(s) drawn, by me, sent to lab. Inserted saline lock: 22 gauge in right vg1 forearm, using aseptic technique. Blood collected. 13:41 XRAY Chest (1 view) In Process Unspecified. EDMS 17:57 Repeat lab(s) drawn. by me, sent to lab. vg1 19:16 Primary Nurse role handed off by Lucinda Reyes, RN mw2 Administered Medications: 13:33 Drug: SOLU-Medrol (methylPrednisoLONE) 125 mg Route: IVP; Site: right forearm; vg1 14:32 Follow up: Response: No adverse reaction vg1 13:40 Drug: Xopenex (levalbuterol) (3) 1.25 mg Route: Inhalation; vg1 14:32 Follow up: Response: No adverse reaction vg1 13:45 Drug: Zofran (Ondansetron) 4 mg Route: IVP; Site: right forearm; vg1 15:52 Follow up: Response: No adverse reaction; Nausea is increased vg1 13:48 Drug: Dilaudid (HYDROmorphone) 0.5 mg {Note: rass 0.} Route: IVP; Site: right forearm; vg1 15:53 Follow up: Response: No adverse reaction; Pain is unchanged, physician notified vg1 15:55 Drug: Phenergan (promethazine) 12.5 mg Route: IVP; Site: right forearm; vg1 16:57 Follow up: Response: No adverse reaction; Nausea is decreased vg1 15:58 Drug: Dilaudid (HYDROmorphone) 0.5 mg {Note: rass 0.} Route: IVP; Site: right forearm; vg1 16:57 Follow up: Pain 6/10 Adult; Response: No adverse reaction; Pain is decreased vg1 Outcome: 19:05 Discharge ordered by MD. pm1 19:34 Discharged to home ambulatory. ak2 19:34 Condition: good 19:34 Discharge instructions given to patient, Prescriptions given X 19:34 Patient left the ED. ak2 Signatures: Dispatcher [employer] EDMS Ninoska Patel ds1 Rimma Thomason RN RN ss Marinas, Patrick, ARELIS [employer] ATTENDANT pm1 Mery Izquierdo mw2 Lucinda Reyes RN RN vg1 Amilcar Cabrera ak2
--- NOTE | 2021-03-13 19:06 | EDPHYS ---
Physician Documentation [facility] Name: Jenni Draper Age: 40 yrs Sex: Female : 1980 Arrival Date: 03/13/2021 Time: 12:59 Bed 15 Private MD: ED Physician Germaine Tapia HPI: 03/13 13:18 This 40 yrs old Female presents to ER via Ambulatory with complaints of pm1 Breathing Difficulty, Vomiting. 13:18 The patient has shortness of breath. pm1 13:18 Onset: The symptoms/episode began/occurred yesterday. Duration: The symptoms are pm1 continuous. The patient's shortness of breath is aggravated by exertion, is alleviated by nebulizer treatment, but patient is out of her nebulizer treatment. Associated signs and symptoms: Pertinent positives: chest pain, productive cough, nausea, vomiting, Pertinent negatives: fever. Severity of symptoms: in the emergency department the symptoms are worse. The patient has experienced similar episodes in the past, multiple times. The patient has been recently seen by a physician: the patient's primary care provider, yesterday, with similar presenting complaints, and apparently given a diagnosis of sinus infection and bronchitis. Historical: - Allergies: 13:13 Adhesives; ss 13:13 Aspirin; ss 13:13 Bactrim; ss 13:13 Benadryl; ss 13:13 cefixime; ss 13:13 Cipro IV; ss 13:13 Clindamycin; ss 13:13 coconut oil; ss 13:13 Demerol; ss 13:13 Detrol; ss 13:13 Diltiazem; ss 13:13 Doxycycline; ss 13:13 FISH PRODUCT DERIVATIVES; ss 13:13 GABAPENTIN; ss 13:13 Iodine; ss 13:13 ivabradine; ss 13:13 Latex, Natural Rubber; ss 13:13 Levofloxacin; ss 13:13 Morphine; ss 13:13 PENICILLINS; ss 13:13 QUETIAPINE; ss 13:13 Seroquel; ss 13:13 Sulfa (Sulfonamide Antibiotics); ss 13:13 Suprax; ss 13:13 tolterodine; ss 13:13 tramadol; ss - Home Meds: 13:13 Abilify 10 mg Oral tab 1 tab once daily [Active]; albuterol sulfate 1.25 mg/3 mL Inhl ss nebu 3 mL 3 times per day [Active]; albuterol sulfate 1.25 mg/3 mL Inhl nebu 3 mL 3 times per day [Active]; alprazolam 0.25 mg Oral tab 1 tab nightly [Active]; atorvastatin 10 mg Oral tab 1 tab once daily [Active]; benztropine 1 mg Oral tab 1 tab 2 times per day [Active]; buspirone 15 mg Oral tab 1 tab 2 times per day [Active]; Coreg 25 mg Oral tab 1 tab 2 times per day [Active]; Daliresp 500 mcg Oral tab 1 tab once daily [Active]; digoxin 125 mcg Oral tab [Active]; Effexor XR 150 mg Oral cp24 1 cap once daily [Active]; Eliquis 5 mg Oral tab once a day [Active]; esomeprazole magnesium 40 mg Oral cpDR 1 cap once daily [Active]; Keppra 1,000 mg Oral tab 1 tab every 12 hours [Active]; loratadine 10 mg Oral tab 1 tab once daily [Active]; ProAir HFA 90 mcg/actuation inhalation HFAA 2 puffs every 6 hours [Active]; Topamax 100 mg Oral tab 2 tabs 2 times per day [Active]; venlafaxine 150 mg Oral cp24 1 cap once daily [Active]; Spiriva with HandiHaler 18 mcg inhalation CpDv 1 cap once daily [Active]; pregabalin 25 mg Oral 1 cap daily [Active]; - PMHx: 13:13 Asthma; Atrial Fib; CHF; mitral valve prolapse; Bronchitis; ss - PSHx: 13:13 pacemaker; Hysterectomy; Cholecystectomy; ss - Immunization history:: Adult Immunizations up to date. - Social history:: Smoking status: Patient denies any tobacco usage or history of. ROS: 13:18 Constitutional: Negative for fever, chills, and weight loss, Eyes: Negative for injury, pm1 pain, redness, and discharge, ENT: Negative for injury, pain, and discharge, Neck: Negative for injury, pain, and swelling. 13:18 Abdomen/GI: Negative for abdominal pain, nausea, vomiting, diarrhea, and constipation, Back: Negative for injury and pain, : Negative for injury, bleeding, discharge, and swelling, MS/Extremity: Negative for injury and deformity, Skin: Negative for injury, rash, and discoloration, Neuro: Negative for headache, weakness, numbness, tingling, and seizure. 13:18 Cardiovascular: Positive for chest pain, Negative for edema, palpitations. 13:18 Respiratory: Positive for cough, shortness of breath. Exam: 13:18 Constitutional: This is a well developed, well nourished patient who is awake, alert, pm1 and in no acute distress. Head/Face: Normocephalic, atraumatic. 13:18 Neck: Trachea midline, no thyromegaly or masses palpated, and no cervical lymphadenopathy. Supple, full range of motion without nuchal rigidity, or vertebral point tenderness. No Meningismus. 13:18 Respiratory: Lungs have equal breath sounds bilaterally, clear to auscultation and percussion. No rales, rhonchi or wheezes noted. No increased work of breathing, no retractions or nasal flaring. 13:18 Back: No spinal tenderness. No costovertebral tenderness. Full range of motion. Skin: Warm, dry with normal turgor. Normal color with no rashes, no lesions, and no evidence of cellulitis. MS/ Extremity: Pulses equal, no cyanosis. Neurovascular intact. Full, normal range of motion. 13:18 Eyes: Exam is negative for acute changes, Periorbital structures: appear normal, Pupils: no acute changes, Extraocular movements: no acute changes. 13:18 ENT: Exam is negative for acute changes. 13:18 Chest/axilla: Inspection: normal, Palpation: tenderness, that is mild, of the anterior aspect of left upper chest and mid-sternal area, that totally reproduces the patient's complaints. 13:18 Cardiovascular: Exam negative for acute changes, Rate: tachycardic, Rhythm: regular, Pulses: no pulse deficits are appreciated. 13:18 Abdomen/GI: Exam negative for acute changes, Inspection: Palpation: abdomen is soft and non-tender, in all quadrants. 13:18 Neuro: Exam negative for acute changes, Orientation: is normal, Mentation: is normal, Motor: is normal, moves all fours. Vital Signs: 13:08 Pulse 115; Resp 26; Temp 98.2(TE); Pulse Ox 100% on R/A; Weight 58.97 kg; Height 4 ft. ss 11 in. (149.86 cm); Pain 8/10; 13:12 BP 116 / 83; vg1 14:00 BP 101 / 89; Pulse 115; Resp 24; Pulse Ox 100% on R/A; vg1 14:30 BP 106 / 64; Pulse 110; Resp 20; Pulse Ox 98% ; vg1 15:00 BP 105 / 81; Pulse 108; Resp 18; Pulse Ox 95% on R/A; vg1 15:30 BP 113 / 90; Pulse 107; Resp 22; Pulse Ox 99% ; vg1 16:30 BP 109 / 75; Pulse 105; Resp 16; Pulse Ox 97% on R/A; vg1 16:57 Pain 6/10; vg1 17:30 BP 100 / 61; Pulse 118; Resp 20; Pulse Ox 98% on R/A; vg1 18:30 BP 102 / 71; Pulse 106; Resp 14; Pulse Ox 96% on R/A; vg1 19:33 BP 104 / 68; Pulse 94; Resp 18; Pulse Ox 100% on R/A; ak2 13:08 Body Mass Index 26.26 (58.97 kg, 149.86 cm) ss MDM: 13:11 Patient medically screened. pm1 19:02 Data reviewed: vital signs. Data interpreted: Pulse oximetry: on room air is 96 %. pm1 Interpretation: normal. 19:02 Counseling: I had a detailed discussion with the patient and/or guardian regarding: the pm1 historical points, exam findings, and any diagnostic results supporting the discharge/admit diagnosis, lab results, radiology results. 19:02 Refusal of service: The patient/guardian displays adequate decision making capability pm1 and despite a detailed discussion of alternatives, benefits, risks, and consequences refuses: CT Scan, due to tachycardia for rule out PE. Patient reports feeling better after breathing treatments and reports she typically gets some tachycardia from steroids and breathing treatments. 19:15 ED course: [place] Reviewed and patient found under [facility] Rivera. last narcotic pm1 prescribed on 01/29/2021. 03/13 13:16 Order name: Basic Metabolic Panel; Complete Time: 14:32 pm1 03/13 13:16 Order name: CBC with Diff; Complete Time: 14:32 pm1 03/13 13:16 Order name: LFT's; Complete Time: 14:32 pm1 03/13 13:16 Order name: Magnesium; Complete Time: 14:32 pm1 03/13 13:16 Order name: NT PRO-BNP; Complete Time: 14:32 pm1 03/13 13:16 Order name: PT-INR; Complete Time: 14:20 pm1 03/13 13:16 Order name: Troponin (emerg Dept Use Only); Complete Time: 14:32 pm1 03/13 13:16 Order name: XRAY Chest (1 view); Complete Time: 14:15 pm1 03/13 13:16 Order name: Digoxin; Complete Time: 14:32 pm1 03/13 17:52 Order name: Troponin (emerg Dept Use Only); Complete Time: 18:38 pm1 03/13 13:16 Order name: EKG; Complete Time: 13:17 pm03/13 13:16 Order name: Cardiac monitoring; Complete Time: 13:38 pm03/13 13:16 Order name: EKG - Nurse/Tech; Complete Time: 13:38 pm1 03/13 13:16 Order name: IV Saline Lock; Complete Time: 13:38 pm03/13 13:16 Order name: Labs collected and sent; Complete Time: 13:38 pm03/13 13:16 Order name: O2 Per Protocol; Complete Time: 13:17 pm03/13 13:16 Order name: O2 Sat Monitoring; Complete Time: 13:17 pm1 EC:39 Rate is 103 beats/min. Rhythm is regular, Sinus tachycardia with No ectopy. No Q waves. pm1 T waves are Normal. No ST changes noted. Clinical impression: Sinus tachycardia. Administered Medications: 13:33 Drug: SOLU-Medrol (methylPrednisoLONE) 125 mg Route: IVP; Site: right forearm; vg1 14:32 Follow up: Response: No adverse reaction vg1 13:40 Drug: Xopenex (levalbuterol) (3) 1.25 mg Route: Inhalation; vg1 14:32 Follow up: Response: No adverse reaction vg1 13:45 Drug: Zofran (Ondansetron) 4 mg Route: IVP; Site: right forearm; vg1 15:52 Follow up: Response: No adverse reaction; Nausea is increased vg1 13:48 Drug: Dilaudid (HYDROmorphone) 0.5 mg {Note: rass 0.} Route: IVP; Site: right forearm; vg1 15:53 Follow up: Response: No adverse reaction; Pain is unchanged, physician notified vg1 15:55 Drug: Phenergan (promethazine) 12.5 mg Route: IVP; Site: right forearm; vg1 16:57 Follow up: Response: No adverse reaction; Nausea is decreased vg1 15:58 Drug: Dilaudid (HYDROmorphone) 0.5 mg {Note: rass 0.} Route: IVP; Site: right forearm; vg1 16:57 Follow up: Pain 6/10 Adult; Response: No adverse reaction; Pain is decreased vg1 Disposition: 03/13/21 19:05 Discharged to Home. Impression: Bronchitis, not specified as acute or chronic. - Condition is Stable. - Discharge Instructions: Acute Bronchitis, Adult. - Prescriptions for Albuterol Sulfate 2.5 mg /3 mL (0.083 %) Inhalation Solution for Nebulization - inhale 1 unit by NEBULIZATION route every 8 hours As needed; 1 box. Guaifenesin AC 10- 100 mg/5 mL Oral Liquid - take 10 milliliter by ORAL route every 4 hours As needed; 240 milliliter. promethazine 25 mg Oral Tablet - take 1 tablet by ORAL route every 6 hours As needed; 20 tablet. - Medication Reconciliation Form, Thank You Letter, Antibiotic Education, Prescription Opioid Use form. - Follow up: Emergency Department; When: As needed; Reason: Worsening of condition. Follow up: Private Physician; When: 2 - 3 days; Reason: Recheck today's complaints, Continuance of care, Re-evaluation by your physician. - Problem is new. - Symptoms have improved. Signatures: Dispatcher [employer] EDMS Rimma Thomason, RN RN ss Zurdo Prasad, [employer] REPRESENTATIVE pm1 Lucinda Reyes RN RN vg1 Amilcar Cabrera2 Corrections: (The following items were deleted from the chart) 19:34 19:05 03/13/2021 19:05 Discharged to Home. Impression: Bronchitis, not specified as ak2 acute or chronic. Condition is Stable. Forms are Medication Reconciliation Form, Thank You Letter, Antibiotic Education, Prescription Opioid Use. Follow up: Emergency Department; When: As needed; Reason: Worsening of condition. Follow up: Private Physician; When: 2 - 3 days; Reason: Recheck today's complaints, Continuance of care, Re-evaluation by your physician. Problem is new. Symptoms have improved. pm1
[2021-03-13 19:49] VITALS: TEMP 98.2
[2021-03-13 20:03] VITALS: BP 104/68; O2SAT 100
--- NOTE | 2021-03-15 08:26 | EKG ---
Test Date: 2021-03-13 Test Time: 13:33:17 Parts Interpreter: JOHANNY MEASUREMENT RESULTS: Intervals: Rate: 103 WY: 142 QRSD: 88 QT: 342 QTc: 448 [place]: P: 30 WY: 142 QRS: 23 T: 37 INTERPRETIVE STATEMENTS: Sinus tachycardia Otherwise normal ECG Compared to ECG 02/21/2021 04:38:40 Sinus rhythm no longer present Electronically Signed On 03-15-21 08:24:09 CDT by Nadeem Rajan
== END 2021-03-13 19:34 | disposition home or self-care (01) ==
LOC: ER 12:57
DX: J40 Bronchitis, not specified as acute or chronic (principal); I50.9 Heart failure, unspecified; I48.91 Unspecified atrial fibrillation; Z79.01 Long term (current) use of anticoagulants; Z88.0 Allergy status to penicillin; Z88.1 Allergy status to other antibiotic agents; Z88.2 Allergy status to sulfonamides; Z88.3 Allergy status to other anti-infective agents; Z88.5 Allergy status to narcotic agent; Z88.6 Allergy status to analgesic agent; Z88.8 Allergy status to other drugs, medicaments and biological substances; Z95.0 Presence of cardiac pacemaker; Z91.013 Allergy to seafood; Z91.040 Latex allergy status; Z91.048 Other nonmedicinal substance allergy status
CPT/HCPCS: 93005; 85025; 80048; 36415; 83735; 85610; 80162; 80076; 84484 ×2; 83880; 71045; J2550; J1170 ×2; J2930; J2405; 96374; 96375; 99284

== ENCOUNTER 2021-03-16 12:23 | Emergency (ER) | payer MEDICAID ==
--- OUTSIDE RECORDS SUMMARY | 2021-03-16 12:28 | XMS REPORT | Continuity of Care Document ---
:1980 Author Organization [facility] t Address [address] [place] [address] Care Team Providers Name Role Phone MILTON Primary Care Physician Unavailable Malena VEGA Attending Clinician Zakia Vera MD Attending Clinician Unavailable ZAKIA VERA Attending Clinician Unavailable LEONOR Attending Clinician Unavailable LINETTE Attending Clinician Unavailable ZAKIA VERA Admitting Clinician Unavailable LEONOR Admitting Clinician Unavailable LINETTE Admitting Clinician Unavailable Payers Payer Name Policy Type Policy Effective Date Expiration Date Sour ce Number MEDICAID - MEDICAID [id number] [facility]:00 - Medical MEDICAID Center [id number] 2010-P resentMedicaid Non-Contracted SOLORIO [id number] [facility] [address] [facility] MEDICAIDMEDICAID 00:00:00 - Medica l [id number] Ce nter 18-Present Problems Condition Condition Condition Status Onset Resolution Last Treating Co mments Source Name Details Category Date Date Treatment Clinician Date Left-sided Left-sided Disease Active [facility] weakness weakness 02-12 [facility] - 00:[facility]: Medical 00 [place] Received Received Disease Active [facility] tissue tissue 02-12 [facility] - plasminoge plasminoge 00:00: Mn dical n n 00 [place] activator activator (t-PA) (t-PA) less than less than 24 hours 24 hours prior to prior to arrival arrival Acute Acute Disease Active [facility] ischemic ischemic 02-11 [facility] - stroke stroke 00:00: Medical 00 [place] Chest pain Chest pain Disease Active [facility] in adult in adult 01-12 [facility] - 00:[facility]: Medical 00 [place] Seizure Seizure Disease Active 2018-[address] [facility] [facility] disorder disorder 2 [facility] - 00:00: Medical 00 [place] Anxiety Anxiety Disease Active [facility] disorder disorder 04-29 [facility] - 00:00: Medical 00 [place] Asthma Asthma Disease Active [facility] 8 [facility] - 00:[facility]: Medical 00 [place] Paresthesi Paresthesi Disease Active 2017-09 [facility] [...] ciproflo DA Active SV 2020-0 [facility] xacin -04 [place] [facility] adhesive DA Active SV 2020-0 [facility] tape - [place] 00:[facility]: d [facility] tramadol DA Active SV 1-0 [facility] -04 [place] 00:[facility]: d [facility] gabapent DA Active SV 2021-0 [facility] in -04 [place] 00:00: d 00 [...] [facility] ne -04 [place] 00:00: d 00 [facility] tolterod DA Active MO 2020-0 [facility] ine 1-04 [place] 00:00: d 00 [facility] latex DA Active SV 2020-0 [facility] 1-04 [place] 00:00: d 00 [facility] ivabradi DA Active MO 2020-0 [facility] ne 1-04 [place] 00:00: d 00 [facility] coconut FA Active MO 2020-0 [facility] 1-04 [place] 00:00: d 00 [facility] Tolterod Propensi Active Rash 2017-[address] [facility] ine ty to 10-17 [facility] - adverse 00:00: Medical reaction 00 [place] Gabapent Propensi Active Shortness Of 2017-[address] in ty to Breath, Rash 10-17 [facility] - adverse 00:00: Medical reaction 00 [facility] Iodine Propensi Active Rash 2017-[address] [facility] And ty to 10-17 [facility] - Iodide adverse 00:00: Medical Containi reaction 00 [facility] s Products Latex Propensi Active Rash 2017-[address] ty to 10-17 [facility] - adverse 00:00: Medical reaction 00 [place] Morphine Propensi Active Anaphylaxis 2017-[address] ty to 10-17 [facility] - adverse 00:00: Medical reaction 00 [place] Penicill Propensi Active Anaphylaxis 2017- [facility] ins ty to 10-17 [facility] - adverse 00:00: Medical reaction 00 [place] Quetiapi Propensi Active 2017- confusion [facility] ne ty to 10-17 [facility] - adverse 00:00: Medical reaction 00 [place] Sulfa Propensi Active Rash 2018- [facility] (Sulfona ty to 10-17 [facility] - mide adverse 00:00: Medical Antibiot reaction 00 [facility]) s Cefixime Propensi Active Rash 2017- [facility] ty to 10-17 [facility] - adverse 00:00: Medical reaction 00 [facility] Tramadol Propensi Active Rash 2017- [facility] ty to 10-17 [facility] - adverse 00:00: Medical reaction 00 [place] [facility] Adhesive Propensi Active Rash 2017-09 Can use [facility] Tape ty to 10-17 papertape [facility] - adverse 00:00: . Medical reaction 00 [place] Sulfamet Propensi Active Anaphylaxis 2017- C [...] Quantity Comments Source Sex Assigned At [facility] Alcohol intake 2018-08-18 2018-08-18 Current drinker [facility] - 00:00:00 00:00:[address] [facility] (finding) Medications Ordered Filled Start Stop Current [...] MG 14:04: mouth Medical tablet 46 daily. [facility] venlafaxine Yes 150mg QD Take [address] (EFFEXOR-XR 5-21 mg by [facility] - ) 150 MG 24 14:04: mouth Medic al hr capsule 46 daily. [facility] apixaban Yes 5mg QD Take [address] [address] (ELIQUIS) 5 5-21 by mouth [facility] - mg Tab 14:04: daily. Medical tablet 46 [place] levETIRAcet Yes 1000mg Q.5D Take 1,[address] am (KEPPRA) 5-21 mg by [facility] - 1000 MG 14:04: mouth 2 Medical tablet 46 (two) Center times daily. loratadine 2021-0 Yes 10mg QD Take [address] (CLARITIN) 5-21 by mouth [facility] - 10 mg 14:04: daily. Medical tablet 46 Center pregabalin Yes 50mg QD Take [address] (LYRICA) 25 5-21 by mouth [facility] - MG capsule 14:04: nightly . Mn dical 46 Center esomeprazol Yes 40mg QD [...] 1{puff} QD Inhale [address] -vilanterol 5-21 05-21 puff by [facility] - (BREO 11:39: 00:00 mouth via Medica l ELLIPTA) 17 :00 inhaler Center 100-25 daily. mcg/dose DsDv tiotropium 2020- No 18ug QD Inhale [address] (SPIRIVA) 5-21 05-21 mcg by [facility] - 18 mcg 11:39: 00:00 mouth via Medic al inhalation 17 :00 inhaler Center capsule daily. triamcinolo 2020- No 2{spray QD [address] ne 5-19 05-19 } by Nasal [facility] - (NASACORT) 22:23: 00:00 route Medic al 55 mcg 54 :00 daily. Center nasal inhaler topiramate No 200mg Q.5D Take [address] (TOPAMAX) 5-19 05-19 mg by [facility] - 100 MG 22:23: 00:00 mouth 2 Medical tablet 21 :00 (two) Center times daily. ROFLUMILAST 2020- No COPD 500ug QD Take [address] ORAL 5-19 05-19 Associated mcg by [facility] - 22:22: 00:00 with mouth Medical 54 :00 Chronic daily. Center Bronchitis ranolazine No 500mg Q.5D Take [address] (RANEXA) 5-19 05-19 mg by [facility] - 500 MG 12 22:22: 00:00 mouth 2 Medi blane hr tablet 12 :00 (two) Center times daily. levothyroxi 2020- 125ug Take [address] ne 5-19 [...] :00 times Center daily as needed. benztropine 2020- No 1mg Take [address] (COGENTIN) 5-19 05-19 by mouth [facility] - 1 MG tablet 22:18: 00:00 daily as M edical 31 :00 needed. [place] ARIPiprazol 2020- No 5mg QD Take [address] [facility] e (ABILIFY) 5-19 05-19 by mouth Berta es - 5 MG tablet 22:18: 00:00 nightly. M edical 03 :00 [place] ARIPiprazol 2020-0 2020- No 10mg QD Take 10 mg [facility] e (ABILIFY) 02-10 by mouth Berta es - 10 MG 22:17: 00:00 daily. Medical disintegrat 48 :00 [facility] ing tablet Vital Signs Vital Name Observation Time Observation Value Comments Source Systolic blood 2021-02-12 12:00:00 101 mm[Hg] [facility] Diastolic blood 2021-02-12 12:00:00 72 mm[Hg] [facility] Heart rate 2021-02-12 12:00:00 93 /min [facility] Respiratory rate 2021-02-12 12:00:00 18 /min [facility] Oxygen saturation in 2021-02-12 12:00:00 96 /min [facility] Arterial blood by Medical Ce nter Pulse oximetry Body temperature 2021-02-12 11:00:[address] [facility] BMI 2021-02-11 10:15:00 26.48 kg/m2 [facility] Body height 2021-02-11 10:15:00 149.9 cm [facility] Body weight 2021-02-11 10:15:00 59.5 kg [facility] Procedures Procedure Date / Time Performed Performing Clinician Sourc e BASIC METABOLIC PANEL (7) 2021-02-12 05:34:[address] [facility] MAGNESIUM 2021-02-12 05:34:00 Alison Prado [facility] PHOSPHORUS 2021-02-12 05:34:00 Johan Alison [facility] CBC W/PLT COUNT & AUTO 2021-02-12 04:48:00 Alison Prado [facility] MR BRAIN WITHOUT IV 2021-02-11 16:08:00 Igor Chew [facility] MRA HEAD WITHOUT IV 2021-02-11 16:07:00 Chew, Igor [facility] MRA NECK WITHOUT IV 2021-02-11 16:07:00 Naina Igor [facility] RAPID DRUG SCREEN, URINE 2021-02-11 03:05:00 [facility] URINALYS[facility] WITH 2021-02-11 03:05:[address] [facility] - MICROSCOPIC IF INDICATED [facility] URINALYSIS MICROSCOPIC 2021-02-11 03:05:00 Alison Prado [facility] HOMOCYSTEINE 2021-02-11 02:46[facility] 2021-02-11 02:46:00 [facility] TSH/FREE T4 IF INDICATED 2021-02-11 02:46:00 [facility] VITAMIN B12 AND FOLATE 2021-02-11 02:46:00 Johan Alison [facility] CBC W/PLT COUNT & AUTO 2021-02-11 02:46:00 Johan Alison [facility] BASIC METABOLIC PANEL (7) 2021-02-11 02:46:00 Johan [facility] MAGNESIUM 2021-02-11 02:46:[facility] 2021-02-11 02:46[facility] C-REACTIVE PROTEIN 2021-02-11 02:46[facility] 2021-02-11 02:46:00 [facility] XR CHEST 1 VIEW 2021-02-10 22:20:00 [facility] PORTABLE/BEDSIDE Medical [place] POCT-GLUCOSE METER 2021-02-10 21:28:[address] [facility] LIPID PANEL 2021-02-10 21:22:00 [facility] CBC W/PLT COUNT & AUTO 2021-02-10 21:21:00 Alison Prado [facility] COMPREHENSIVE METABOLIC 2021-02-10 21:21:[address] [facility] PROTHROMBIN TIME/INR 2021-02-10 21:21:00 Johan [facility] APTT 2021-02-10 21:21:[facility]UM 2021-02-10 21:21:00 [facility] 2021-02-10 21:21[facility] HIGH SENSITIVITY TROPONIN 2021-02-10 21:21:00 [facility] B-TYPE NATRIURETIC FACTOR 2021-02-10 21:21:00 [facility] LACTIC ACID, VENOUS 2021-02-10 21:21:00 Autumn Pradoutha [facility] CREATINE KINASE (CK) 2021-02-10 21:21:00 Johan [facility] HEMOGLOBIN A1C 2021-02-10 21:21:00 [facility] Plan of Care Planned Activity Planned [...] Medica l Center cervix (procedure) [code = 629759702] Future Scheduled 2000 DTAP/TDAP/TD VACCINES [facility] Test 00:00:00 (1 - Tdap) [code = Medical C enter DTAP/TDAP/TD VACCINES (1 - Tdap)] Future Scheduled 1999 HEPATITIS C SCREENING I [facility] - Test 00:00:00 [code = HEPATITIS C Medical Center SCREENING] Encounters Start End Encounter Admission Attending Care Care Encounter Source Date/Time Date/Time Type Type Clinicians Facility Department ID 2021-03-02 2021-03-02 Telephone NAKUL Guy [id number] 00:00:00 00:00:00 Tucker Stafford [id number] [place] [id number] Margo [id number] nal 085 Building 2017-09-06 2017-09-08 [id number] [address] 10:12:00 02:32:00 [facility] Results Test Description Test Time Test Comments Results Result Comments Source Basic Metabolic Panel 2021-02-12 07:01:00 Test Item Value Reference Range Interpretation Comme nts Sodium (test code = 137 meq/L 109-440 8312-2) Potassium (test code = 4.3 meq/L 3.5-5.1 2823-3) Chloride (test code = 104 meq/L 98-107 2075-0) CO2 (test code = 2027-9) 24 meq/L 22-29 BUN (test code = 3094-0) 15 mg/dL 7-21 Creatinine (test code = 0.81 mg/dL 0.57-1.25 2160-0) Glucose (test code = 108 mg/dL 70-105 H 2345-7) Calcium (test code = 9.2 mg/dL 8.4-10.2 34506-4) EGFR (test code = 34426-3) 79 mL/min/1.73 sq m ESTIMATED GFR IS NOT ACCURATE CREATININE CARLI [place] IN PREDICTING GLOMERULAR FILT RATION RATE. ESTIMATED GFR IS NOT APPLICAB LE FOR DIALYSIS PATIEN TS. SOMMER (test code = SOMMER) Color Weigher ID - PIAYA L Lab Interpretation (test Abnormal code = 15667-6) [facility] 07:01:00 Test Item Value Reference Range Interpretation Comments Magnesium (test code = 2.5 mg/dL 1.6-2.6 64880-5) SOMMER (test code = SOMMER) Color Weigher ID - PIAYA L Lab Interpretation (test Normal code = 30962-2) [facility]21-[facility]-21 07:01:00 Test Item Value Reference Range Interpretation Comments Phosphorus (test code = 4.3 mg/dL 2.3-4.7 2777-1) SOMMER (test code = SOMMER) Color Weigher ID - MACHELLE L Lab Interpretation (test Normal code = 43260-7) [facility] METABOLIC [id number] 07:01:00 Test Item Value Reference Range Interpretation [...] 697) EGFR (BEAKER) (test 79 mL/min/1.73 ESTIMA ERIC GFR IS code = 1092) sq m NOT ACCURATE CREATININE CLEARANCE IN PREDICTING GLOMERULAR FILTRATION RATE . ESTIMATED GFR I S NOT APPLICABLE FOR DIALYSIS PATIEN TS. Color Weigher ID - MACHELLE [id number] 07:01:00 Test Item Value Reference Range Interpretation Comments MAGNESIUM (BEAKER) (test code = 2.5 mg/dL 1.6-2.6 627) Color Weigher ID - MACHELLE [id number] 07:01:00 Test Item Value Reference Range Interpretation Comments PHOSPHORUS (BEAKER) (test code = 4.3 mg/dL 2.3-4.7 604) Color Weigher ID - MACHELLE LCBC with platelet count + automated [id number] 05:37:00 Test Item Value Reference Range Interpretation Comments WBC (test code = 6690-2) 6.8 See_Comment [A utomated message] The system [employer] generated this result transmitted ref erence range: 3.5 - 10 .5 K/L. The refe rence range was not u sed to interpret this result as normal/abnor mal. RBC (test code = 789-8) 5.14 See_Comment [Au tomated message] The system [employer] generated this result transmitted ref erence range: 3.93 - 5 .22 M/L. The refe rence range was not u sed to interpret this result as normal/abnor mal. MCHC (test code = 786-4) 31.6 See_Comment L [A utomated message] The system [employer] generated this result transmitted ref erence range: [...] See_Comment [Aut omated message] 777-3) The system [employer] generated this result transmitted ref erence range: 150 - 45 0 K/CU MM. The referen ce range was not u sed to interpret this result as normal/abnor mal. MPV (test code = 10.0 fL 9.4-12.3 63485-8) nRBC (test code = 413) 0 See_Comment [Aut omated message] The system [employer] generated this result transmitted ref erence [...] See_Comment [Aut omated message] 670) The system [employer] generated this result transmitted ref erence range: 1.56 - 6 .13 K/L. The refe rence range was not u sed to interpret this result as normal/abnor mal. # Lymphs (test code = 2.10 See_Comment [Auto mated message] 414) The system [employer] generated this result transmitted ref erence range: 1.18 - 3 .74 K/L. The refe rence range was not u sed to interpret this result as normal/abnor mal. # Monos (test code = 0.48 See_Comment H [Autom ated message] 415) The system [employer] generated this result transmitted ref erence range: 0.24 - 0 .36 K/L. The refe rence range was not u sed to interpret this result as normal/abnor mal. # Eos (test code = 416) 0.26 See_Comment [Au tomated message] The system [employer] generated this result transmitted ref erence range: 0.04 - 0 .36 K/L. The refe rence range was not u sed to interpret this result as normal/abnor mal. # Baso (test code = 417) 0.04 See_Comment [A utomated message] The system [employer] generated this result transmitted ref erence range: 0.01 - 0 .08 K/L. The refe rence range was not u sed to interpret this result as normal/abnor mal. Immature 1 % 0-1 Granulocytes-Relative (test code = 2801) Lab Interpretation (test Abnormal code = 51862-5) [facility] W/PLT COUNT & AUTO [id number] 05:37:00 Test Item Value Reference Range Interpretation [...] code = 2801) MR, MRA, BRAIN, WITHOUT [id number] 16:54:00Reason for exam:->Ischemic Stroke EvaluationS[facility]Name[facility] : 1980 Sex: FFINAL REPORT MR, BRAIN, WITHOUT CONTRAST, MR, MRA, BRAIN, WITHOUT CONTRAST, MR, MRA, NECK, WITHOUT IV CONTRAST INDICATION: Stroke, follow upIschemic Stroke Evaluation TECHNIQUE: Multiplanar, multisequence MR imaging of the brain without intravenous contrast.MRA of the head utilizing 3-D aslp-cl-mxfavr technique, with 3-D reconstructions.MRA of the neck utilizing 2-D and 3-D pdky-uf-cappkl technique, with 3-D reconstructions. COMPARISON: MRI and [...] stenosis within the head and neck. Signed: Misha Amador Verified Date/Time: 02/11/2021 16:54:16 MR, MRA, NECK, WITHOUT IV [id number] 16:54:00Reason for exam:->Ischemic Stroke Evaluation [facility] : 1980 Sex: FFINAL REPORT MR, BRAIN, WITHOUT CONTRAST, MR, MRA, BRAIN, WITHOUT CONTRAST, MR, MRA, NECK, WITHOUT IV CONTRAST INDICATION: Stroke, follow upIschemic Stroke Evaluation TECHNIQUE: Multiplanar, multisequence MR imaging of the brain without intravenous contrast.MRA of the head utilizing 3-D lnyq-hx-fraqyj technique, with 3-D reconstructions.MRA of the neck utilizing 2-D and 3-D lpty-mm-pigpze technique, with 3-D reconstructions. COMPARISON: MRI and [...] stenosis within the head and neck. Signed: Misha Amador Verified Date/Time: 02/11/2021 16:54:16 MR, BRAIN, WITHOUT [id number] 16:54:00Reason for exam:->Ischemic Stroke Evaluation [facility] 1980 Sex: FFINAL REPORT MR, BRAIN, WITHOUT CONTRAST, MR, MRA, BRAIN, WITHOUT CONTRAST, MR, MRA, NECK, WITHOUT IV CONTRAST INDICATION: Stroke, follow upIschemic Stroke Evaluation TECHNIQUE: Multiplanar, multisequence MR imaging of the brain without intravenous contrast.MRA of the head utilizing 3-D tyqe-ab-qolqaj technique, with 3-D reconstructions.MRA of the neck utilizing 2-D and 3-D jnvo-hb-zewbke technique, with 3-D reconstructions. COMPARISON: MRI and [...] stenosis within the head and neck. Signed: Misha Amador MDReport Verified Date/Time: 02/11/2021 16:54:16 MR brain without IV [id number] 16:54:00Interface, External Ris In - 02/11/2021 4:56 PM CDTFINAL REPORT MR, BRAIN, WITHOUT CONTRAST, MR, MRA, BRAIN, WITHOUT CONTRAST, MR, MRA, NECK, WITHOUT IV CONTRAST INDICATION: Stroke, follow upIschemic Stroke Evaluation TECHNIQUE: Multiplanar, multisequence MR imaging of the brain without intravenous contrast.MRA of the head utilizing 3-D hwrc-yx-cnqiuq technique, with 3-D reconstructions.MRA of the neck utilizing 2-D and 3-D jhvd-mi-itcvzy technique, with 3-D reconstructions. COMPARISON: MRI and [...] stenosis within the head and neck. Signed: Misha Amador Verified Date/Time: 02/11/2021 16:54:16 [facility] without IV [id number] 16:54:00Interface, External Ris In - 02/11/2021 4:56 PM CDTFINAL REPORT MR, BRAIN, WITHOUT CONTRAST, MR, MRA, BRAIN, WITHOUT CONTRAST, MR, MRA, NECK, WITHOUT IV CONTRAST INDICATION: Stroke, follow upIschemic Stroke Evaluation TECHNIQUE: Multiplanar, multisequence MR imaging of the brain without intravenous contrast.MRA of the head utilizing 3-D znde-ry-wbytyp technique, with 3-D reconstructions.MRA of the neck utilizing 2-D and 3-D bnzi-eo-pvrwph technique, with 3-D reconstructions. COMPARISON: MRI and [...] stenosis within the head and neck. Signed: Misha Amador Verified Date/Time: 02/11/2021 16:54:16 [facility] neck without IV [id number] 16:54:00Interface, External Ris In - 02/11/2021 4:56 PM CDTFINAL REPORT MR, BRAIN, WITHOUT CONTRAST, MR, MRA, BRAIN, WITHOUT CONTRAST, MR, MRA, NECK, WITHOUT IV CONTRAST INDICATION: Stroke, follow upIschemic Stroke Evaluation TECHNIQUE: Multiplanar, multisequence MR imaging of the brain without intravenous contrast.MRA of the head utilizing 3-D prji-hs-affkdz technique, with 3-D reconstructions.MRA of the neck utilizing 2-D and 3-D rafa-da-llvihf technique, with 3-D reconstructions. COMPARISON: MRI and [...] stenosis within the head and neck. Signed: Misha Amador MDReport Verified Date/Time: 02/11/2021 16:54:16 [id number] 14:02:00 Test Item Value Reference Range Interpretation Comments RPR (test code = 30227-1) Nonreactive Nonreactive Lab Interpretation (test code = Normal 46828-6) [facility] 14:02:00 Test Item Value Reference Range Interpretation Comments RPR SCREEN (BEAKER) (test code = Nonreactive Nonreactive 420) Hemoglobin [id number] 09:35:00 Test Item Value Reference Range Interpretation Comments Hemoglobin A1C (test code = 4548-4) 6.0 % 4.3-6.1 Lab Interpretation (test code = Normal 20131-1) [facility]HEMOGLOBIN [id number] 09:35:00 Test Item Value Reference Range Interpretation Comments HEMOGLOBIN A1C (BEAKER) (test code = 6.0 % 4.3-6.1 368) Rapid drug screen, [id number] 07:26:00 Test Item Value Reference Range Interpretation Comments Barbiturate Screen Negative Negative (test code = 77603-1) Benzodiazepine Screen Negative Negative (test code = 57204-6) Cocaine (Metab.) Negative Negative Screen (test code = 3397-7) Methadone Screen (test Negative Negative code = 13469-2) Opiate Screen (test Negative Negative code = 02891-5) Cannabinoid Screen Negative Negative (test code = 36908-8) Amph/Methamph Screen Negative Negative (test code = 86550-6) Phencyclidine Screen Negative Negative (test code = 60866-4) pH, UA (test code = 6.5 5.0-8.0 5803-2) SOMMER (test code = SOMMER) DRUG CUTOFF CONC.Cocaine 300 ng/mL Cannabinoid 50 ng/mLBenzodiazepine 200 ng/mLBarbiturate 200 ng/mLPhencyclidine 25 ng/mLOpiate 300 ng/mLMethadone 300 ng/mLAmphetamine/ 1000 ng/mL Methamphetamine This assay provides an unconfirmed qualitative test result for the clinical management of patients in emergency situations. Chain of custody not maintained. Some oogl-vmo-ugrhojj medications, as well as adulterants, may cause inaccurate results. Clinical correlation should be applied. A more comprehensive drug screen or confirmation of a detected drug may be performed upon request.Color Weigher ID - VIET Jerez Lab Interpretation Normal (test code = 40443-4) [facility] CenterRAPID DRUG SCREEN, [id number] 07:26:00 Test Item Value Reference Range Interpretation [...] situations. Chain of custody not maintained. Some idyu-qoo-hcgdcah medications, as well as adulterants, may cause inaccurate results. Clinical correlation should be applied. A more comprehensivedrug screen or confirmation of a detected drug may be performed upon request.Color Weigher ID - VIET MUrinalysis with Microscopic If [id number] 07:11:00 Test Item Value Reference Range Interpretation Comments Color, UA (test code = Light Yellow 5778-6) Clarity, UA (test code = Clear 5767-9) Specific [place], UA (test 1.012 1.001-1.035 code = 5811-5) pH, UA (test code = 6.5 5.0-8.0 5803-2) Protein, UA (test code = Negative Negative 80025-1) Glucose, UA (test code = Negative Negative 365) Ketones, UA (test code = Negative Negative 2514-8) Bilirubin, UA (test code = Negative Negative 30613-2) Blood, UA (test code = Small Negative A 72973-0) Nitrite, UA (test code = Negative Negative 5802-4) Leukocytes, UA (test code Small Negative A = 5799-2) Urobilinogen, UA (test 0.2 mg/dL 0.2-1 code = 00424-7) Specimen Source (test code = 2795) SOMMER (test code = SOMMER) Color Weigher ID - [auto]Color Weigher ID - tech Lab Interpretation (test Abnormal code = 75741-8) [facility] CenterUrinalysis Microscopic [id number] 07:11:00 Test Item Value Reference Range Interpretation Comments RBC, UA (test 11 See_Comment [Automated me ssage] code = 40581-6) The system w [facility] generated this result transmitted ref erence range: /HPF. Th e reference range was not used to int erpret this result as normal/abnormal . WBC, UA (test 11 See_Comment [Automated me ssage] code = 5821-4) The system [facility] generated this result transmitted ref erence range: /HPF. Th e reference range was not used to int erpret this result as normal/abnormal . Mucus (test Rare code = 8247-9) Squam Epithel, 3 See_Comment [Automated m essage] UA (test code = The system w [facility] [address]18-6) generated this result transmitted ref erence range: /HPF. Th e reference range was not used to int erpret this result as normal/abnormal . SOMMER (test code Color Weigher ID - tech = SOMMER) [facility]URIN[facility]IS WITH MICROSCOPIC IF [id number] 07:11:00 Test Item Value Reference Range Interpretation [...] = 463) SOURCE(BEAKER) (test code = 2795) Color Weigher ID - [auto]Color Weigher ID - techURINALYSIS [id number] 07:11:00 Test Item Value Reference Range Interpretation Comments RBC UA (BEAKER) (test code = 519) 11 /HPF WBC UA (BEAKER) (test code = 520) 11 /HPF MUCUS (BEAKER) (test code = 1574) Rare SQUAMOUS EPITHELIAL (BEAKER) (test 3 /HPF code = 516) Color Weigher ID - techDigoxin [id number] 06:22:00 Test Item Value Reference Range Interpretation Comments Digoxin Lvl (test code = <0.30 0.8-2 L 37665-6) SOMMER (test code = SOMMER) Color Weigher ID - PIAYA L Lab Interpretation (test Abnormal code = 97037-6) [facility] CenterDIGOXIN [id number] 06:22:00 Test Item Value Reference Range Interpretation Comments DIGOXIN LEVEL (BEAKER) (test code = < ng/mL 0.80-2.00 L 669) Color Weigher ID - MACHELLE PIyduasrwslmy5252-21-62 05:58:00 Test Item Value Reference Range Interpretation Comments Homocysteine (test code = 7.3 umol/L 5.1-15.4 81848-8) SOMMER (test code = SOMMER) Color Weigher ID - PIDEANN L Lab Interpretation (test Normal code = 23438-9) [facility] CenterTSH/Free T4 If [id number] 05:58:00 Test Item Value Reference Range Interpretation Comments TSH (test code = 4.368 See_Comment [Automated 12787-8) message] The system which generated this result transmit eric reference range : 0.350 - 4.940 uIU/mL. The reference range was not used to interpret this result as normal/abnormal . SOMMER (test code = SOMMER) Color Weigher ID - MACHELLE L Lab Interpretation Normal (test code = 70082-6) [facility] CenterVitamin B12 and [id number] 05:58:00 Test Item Value Reference Range Interpretation Comments Vitamin B12 (test 557 pg/mL 213-816 code = 2132-9) Folate (test code = 11.20 ng/mL See_Comment [Automa eric 2284-8) message] The system which generated this result transmit eric reference range : >=7.00. The reference range was not used to interpret this result as normal/abnormal . SOMMER (test code = SOMMER) Color Weigher ID - PIAYA L Lab Interpretation Normal (test code = 62809-9) [facility] CenterHOMOCYSTEINE2021-05-20 05:58:00 Test Item Value Reference Range Interpretation Comments HOMOCYSTEINE (BEAKER) (test code = 7.3 umol/L 5.1-15.4 642) Color Weigher ID - MACHELLE LTSH/FREE T4 IF [id number] 05:58:00 Test Item Value Reference Range Interpretation Comments THYROID STIMULATING HORMONE 4.368 uIU/mL 0.350-4.940 (BEAKER) (test code = 772) Color Weigher ID - MACHELLE LVITAMIN B12 AND [id number] 05:58:00 Test Item Value Reference Range Interpretation Comments VITAMIN B12 557 pg/mL 213-816 (BEAKER) (test code = 774) FOLATE (BEAKER) 11.20 ng/mL See_Comment [Automated message] (test code = 362) The system which generated this result transmitted ref erence range: >=7.00. The reference range was not used to interpr et this result as normal/abnormal . Color Weigher ID - MACHELLE LC-Reactive [id number] 04:54:00 Test Item Value Reference Range Interpretation Comments CRP (test code = 676) 0.81 mg/dL 0-0.5 H SOMMER (test code = SOMMER) Color Weigher ID - MACHELLE L Lab Interpretation (test Abnormal code = 17239-9) [facility] CenterMAGNESIUM2021-05-20 04:54:00 Test Item Value Reference Range Interpretation Comments MAGNESIUM (BEAKER) 2.1 mg/dL 1.6-2.6 Specimen slightly (test code = 627) hemolyzed Color Weigher ID - MACHELLE [id number] 04:54:00 Test Item Value Reference Range Interpretation Comments PHOSPHORUS (BEAKER) 4.3 mg/dL 2.3-4.7 Specimen slightly (test code = 604) hemolyzed Color Weigher ID - MACHELLE LBASIC METABOLIC [id number] 04:54:00 Test Item Value Reference Range Interpretation [...] 697) EGFR (BEAKER) (test 92 mL/min/1.73 ESTIMA ERIC GFR IS code = 1092) sq m NOT ACCURATE CREATININE CLEARANCE IN PREDICTING GLOMERULAR FILTRATION RATE . ESTIMATED GFR I S NOT APPLICABLE FOR DIALYSIS PATIEN TS. Color Weigher ID - MACHELLE LC-REACTIVE [id number] 04:54:00 Test Item Value Reference Range Interpretation Comments C-REACTIVE PROTEIN (BEAKER) (test 0.81 mg/dL 0.00-0.50 H code = 676) Color Weigher SASHA - MACHELLE LCBC W/PLT COUNT & AUTO [id number] 02:54:00 Test Item Value Reference Range Interpretation [...] = 2801) RAD, CHEST, 1 VIEW, NON [id number] 22:40:00Reason for exam:->strokeShould this be performed at the bedside?->Yes [facility] 1980 Sex: [...] Nievesort Verified Date/Time: 02/10/2021 22:40:02 Reading Location: [address] Transitional Reading Room XR chest 1 view portable / [id number] 22:40:00Interface, External Ris In - 02/10/2021 10:42 [...] Nieves Verified Date/Time: 02/10/2021 22:40:02 Reading Location: [address] Transitional Reading Room [facility] W/PLT COUNT & AUTO [id number] 22:16:00 Test Item Value Reference Range Interpretation [...] Range Interpretation Comments BNP (test code = 73028-3) <10 0-100 SOMMER (test code = SOMMER) Color Weigher ID - BS Lab Interpretation (test Normal code = 48157-3) [facility] CenterB-TYPE NATRIURETIC FACTOR (BNP)2021-02-10 22:04:00 Test Item Value Reference Range Interpretation Comments B-TYPE NATRIURETIC PEPTIDE (BEAKER) < pg/mL 0-100 (test code = 700) Color Weigher ID - BSHigh Sensitivity Troponin I ([facility])2021-02-10 21:57:00 Test Item Value Reference Range Interpretation Comments Troponin I HS <4 See_Comment [Automated (test code = message] The 01916-7) system which generated this result transmitted reference range : <=17 pg/ml. The reference range was not used to interpret this result as normal/abnormal . SOMMER (test code = Color Weigher ID - SOMMER) BSThe COUNTER ATTENDANT STAT High Sensitivity Troponin-I results should be used in conjunction with other diagnostic information such as ECG, clinical observations and information, and patient symptoms to aid in the diagnosis of SC. Lab Interpretation Normal (test code = 65066-3) [facility] CenterHIGH SENSITIVITY TROPONIN [id number] 21:57:00 Test Item Value Reference Range Interpretation Comments HIGH SENSITIVITY < pg/ml See_Comment [Automated message] TROPONIN I (test code = The system which 5069907) generated this result transmitted ref erence range: <=17. Th e reference range was not used to interpr et this result as normal/abnormal . Color Weigher ID - BSThe COUNTER ATTENDANT STAT High Sensitivity Troponin-I results should be used in conjunctionwith other diagnostic information such as ECG, clinical observations and information, and patient symptoms to aid in the diagnosis of SC.Lipid [id number] 21:54:00 Test Item Value Reference Range Interpretation Comments Triglycerides (test 171 mg/dL Specimen code = 2571-8) markedly hemolyzed Cholesterol (test 218 mg/dL Specimen code = 2093-3) markedly hemolyzed HDL (test code = 47 mg/dL 2084-9) LDL Calculated (test 137 mg/dL code = 17099-1) SOMMER (test code = Triglyceride SOMMER) Reference Range: Low Risk <150 Borderline 150-199 High Risk 200-499 Very High Risk >=500 Cholesterol Reference Range: Low Risk <200 Borderline 200-239 High Risk >240 HDL Cholesterol Reference Range: Low Risk >=60 High Risk <40 LDL Cholesterol Reference Range: Optimal <100 Near Optimal 100-129 Borderline 130-159 High 160-189 Very High >=190 Color Weigher ID - BS [facility] CenterLIPID [id number] 21:54:00 Test Item Value Reference Range Interpretation Comments TRIGLYCERIDES (BEAKER) 171 mg/dL Speci men markedly (test code = 540) hemolyzed CHOLESTEROL (BEAKER) 218 mg/dL Specime n markedly (test code = 631) hemolyzed HDL CHOLESTEROL (BEAKER) 47 mg/dL (test code = 976) LDL CHOLESTEROL 137 mg/dL CALCULATED (Jack in the BoxAKER) (test code = 633) Triglyceride Reference Range: Low Risk <150 Borderline 150-199 High Risk 200-499 Very High Risk >=500Cholesterol Reference Range: Low Risk <200 Borderline 200-239 High Risk >240HDL Cholesterol Reference Range: Low Risk >=60 High Risk <40LDL Cholesterol Reference Range: Optimal <100 Near Optimal 100-129 Borderline 130-159 High 160-189 Very High >=190 Color Weigher ID - BSComprehensive metabolic [id number] 21:52:00 Test Item Value Reference Range Interpretation Comments Protein, Total 8.0 See_Comment Specimen slig htly (test code = hemolyzed 2884-2) [Automated message] The system which generated this result transmit eric reference range : 6.0 - 8.3 gm/dL . The reference range was not u sed to interpret th is result as normal/abnormal . Albumin (test code 4.2 g/dL 3.5-5 Specimen slightly = 27866-0) hemolyzed Alkaline 135 U/L 40-150 Phosphatase (test code = 6768-6) Total Bilirubin 0.2 mg/dL 0.2-1.2 Specimen i [employer] [facility] (test code = hemolyzed 1974-) Sodium (test code = 139 meq/L 336-480 8236-2) Potassium (test 4.5 meq/L 3.5-5.1 Specimen i tly code = 2823-3) hemolyzed Chloride (test code 103 meq/L 98-107 = 5-0) CO2 (test code = 25 meq/L 22-29 2028-05) BUN (test code = 9 mg/dL 7- 3094-0) Creatinine (test 0.78 mg/dL 0.57-1.25 [facility]imen [facility] = 2160-0) hemolyzed Glucose (test code 105 mg/dL 70-105 = 2345-7) Calcium (test code 9.6 mg/dL 8.4-10.2 = 53806-1) AST (test code = 28 U/L 5-34 Specimen sl ightly 1919-) hemolyzed ALT (test code = 52 U/L 6-55 Specimen sl ightly 1742-6) hemolyzed EGFR (test code = 82 mL/min/1.73 [place] [address]-8) NOT ACCURATE CREATININE CLEARANCE IN PREDICTING GLOMERULAR FILTRATION RATE . ESTIMATED GFR I S NOT APPLICABLE FOR DIALYSIS PATIEN TSMariia SOMMER (test code = Color Weigher ID - BS SOMMER) [facility] CenterCreatine Kinase (CK)2021-02-10 21:52:00 Test Item Value Reference Range Interpretation Comments Total CK (test code = 70 U/L 29-200 2157-6) SOMMER (test code = SOMMER) Color Weigher ID - BS Lab Interpretation (test Normal code = 34332-0) [facility] CenterMAGNESIUM2021-05-19 21:52:00 Test Item Value Reference Range Interpretation Comments MAGNESIUM (BEAKER) 2.2 mg/dL 1.6-2.6 Specimen slightly (test code = 627) hemolyzed Color Weigher ID - [id number] 21:52:00 Test Item Value Reference Range Interpretation Comments PHOSPHORUS (BEAKER) 4.4 mg/dL 2.3-4.7 Specimen slightly (test code = 604) hemolyzed Color Weigher ID - BSCOMPREHENSIVE METABOLIC [id number] 21:52:00 Test Item Value Reference Range Interpretation [...] hemolyzed EGFR (BEAKER) (test 82 mL/min/1.73 ESTIMA ERIC GFR IS code = 1092) sq m NOT ACCURATE CREATININE CLEARANCE IN PREDICTING GLOMERULAR FILTRATION RATE . ESTIMATED GFR I S NOT APPLICABLE FOR DIALYSIS PATIEN TS. Color Weigher ID - BSCREATINE KINASE (CK)2021-02-10 21:52:00 Test Item Value Reference Range Interpretation Comments CREATINE KINASE TOTAL (BEAKER) (test 70 U/L 29-200 code = 380) Color Weigher ID - [id number] 21:46:00 Test Item Value Reference Range Interpretation Comments PTT (test code = 18840-0) 30.5 See_Comment [ Automated message] The system [employer] generated this result transmitted ref erence range: 22.5 - 3 6.0 seconds. The re ference range was not u sed to interpret this result as normal/abnor mal. Lab Interpretation (test Normal code = 75276-3) [facility] CenterLactic acid, [id number] 21:46:00 Test Item Value Reference Range Interpretation Comments Lactate, Venous (test 1.96 mmol/L 0.5-2.2 Specim en code = 2872) markedly hemolyzed SOMMER (test code = SOMMER) Color Weigher ID - BS Lab Interpretation Normal (test code = 31032-3) [facility] CenterAPTT2021-05-19 21:46:00 Test Item Value Reference Range Interpretation Comments PARTIAL THROMBOPLASTIN TIME 30.5 seconds 22.5-36.0 (BEAKER) (test code = 760) LACTIC ACID, [id number] 21:46:00 Test Item Value Reference Range Interpretation Comments LACTATE BLOOD VENOUS 1.96 mmol/L 0.50-2.20 Specime n markedly (2) (BEAKER) (test hemolyzed code = 2872) Color Weigher ID - BSProthrombin time/[id number] 21:45:00 Test Item Value Reference Interpretation Comments [...] valves. Lab Interpretation Normal (test code = 66751-8) [facility] CenterPROTHROMBIN TIME/[id number] 21:45:00 Test Item Value Reference Range Interpretation Comments PROTIME (ARNOL) 12.7 seconds 11.9-14.2 (test code = 759) INR (BEAKER) (test 0.98 See_Comment [Automat ed message] code = 370) The system [employer] generated this result transmitted ref erence range: <=5.90. The reference range was not used to int erpret this result as normal/abnormal . RECOMMENDED COUMADIN/WARFARIN INR THERAPY RANGESSTANDARD DOSE: 2.0 - 3.0 Includes: PROPHYLAXIS forvenous thrombosis, systemic embolization; TREATMENT for venous thrombosis and/or pulmonary embolus.HIGH RISK: Target INR is 2.5-3.5 for patients with mechanical heart valves.POC-Glucose [id number] 21:39:00 Test Item Value Reference Range Interpretation Comments POC-Glucose Meter (test 93 mg/dL 70-110 : TE STED AT [facility] code = 1538) [address] [facility] [facility], [address]: Color Weigher/Techni rhonda ID = [id number] for AILYN JAVIER Lab Interpretation (test Normal code = 03937-5) [facility] CenterPOCT-GLUCOSE [id number] 21:39:00 Test Item Value Reference Range Interpretation Comments POC-GLUCOSE METER 93 mg/dL 70-110 : TESTED A T [facility] 6720 (ARNOL) (test code = AYLIN Rivera [facility], 1538) [address]: Color Weigher/Techni rhonda ID = [id number] for GERTRUDE SHAY [id number] 15:45:00 Test Item Value Reference Range Interpretation Comments SURG (test code = SURG) RUN DATE: 09/30/20 [facility] - LAB PAGE 1 RUN TIME: 1545 Specimen Inquiry RUN USER: INTERFACE PATIENT: ADAM MARSH Y[place]O LOC: [place] U #: [id number] AGE/SX: 40/F ROOM: RE09/29/20REG DR: Linus Boone MD : [birth year] BED: DIS: STATUS: [facility] TLOC: SPEC #: [id number]:[id number] RECD: 09/29/20 STATUS: MACIEL DEY #: [id number] WU: 09/29/[address]: Linus Boone MD ENTERED: 09/29/20 SP TYPE: SURG OTHR DR: Undefined Provider ORDERED: SURG PATH LVL 4 COPIES TO: Linus Boone MD [address] [place] [address] Undefined Provider HISTOLOGY: TISSUE ID BLK PCS DHIRAJ LEV PROCEDURE DISPOSITION ____ ___ ___ ___ STOMACH, NOS A 1 2 PROCEDURES: SURG PATH LVL 4 (09/29/20) TISSUES: A. STOMACH, NOS - GASTRIC BIOPSY CLINICAL HISTORY R10.13, K21.9, K92.0, R14.0, R11.2, R19.7, R19.4 CPT CODES CPT CODE(S): 89744 , , , , , , FINAL DIAGNOSIS Stomach, biopsy: MILD CHRONIC GASTRITIS NEGATIVE FOR INTESTINAL METAPLASIA, DYSPLASIA, OR MALIGNANCY NEGATIVE FOR HELICOBACTER PYLORI ORGANISMS GROSS DESCRIPTION Gastric biopsy. Received in formalin are two wilkinson tissue fragments, 0.4 cm each, all as A. bk/nr Grossing performed at [facility] Pathology, [address] [place] [address], [address], [place] [address]. Manager Brand: Aditya Hanson M.D. CONTINUED ON NEXT PAGE RUN DATE: 09/30/20 [facility] PAGE 2 RUN TIME: 1545 Specimen Inquiry RUN USER: INTERFACE SPEC #: [facility]:[id number] PATIENT: ADAM MARSH #[id number] (Continued) MICROSCOPIC DESCRIPTION Gastric biopsy. Sections demonstrate gastric mucosa with mild chronic inflammation. No dysplasia or malignancy is identified. No evidence of Helicobacter pylori organisms or intestinal metaplasia is seen. Signed SIGNATURE ON FILE Hector Issa 09/30/20 1545 END OF REPORT COVID 19 INHOUSE [id number] 13:41:00 Test Item Value Reference Range Interpretation Comments COVID 19 INHOUSE AG NEGATIVE Negative Per marino coronar, (test code = negative result s should [id number]) be treated aspr esumptive and, if inconsi [...] symptoms co nsistent with COVID-19. BASIC METABOLIC [id number] 13:40:00 Test Item Value Reference Range Interpretation [...] MG/DL 8.5-10.1 N - XR CHEST 1 [id number] 13:33:00 [facility] : 1980 Sex: F Name: ADAM MARSH [facility] : [birth year] Age/S: 40 / F [address] [facility] Unit #: [id number] Loc: [place] [address] Phys: Linus Boone MD Acct: [id number] Dis Date: Status: [facility] PHONE #: [phone] Exam Date: 09/28/2020 1326 FAX #: Reason: PREOP EXAMS: CPT: [id number] XR CHEST 1 V 35838 Fluoro Time: DAP (Gy m2): Air Kerma [...] PAGE 1 Signed Report Name: ADAM MARSH [place] : 1980 Age/S: 40 / F [address] [place] [address] Unit #: [id number] Loc: [place] [address] Phys: Linus Boone MD Acct: [id number] Dis Date: Status: [facility] PHONE #: [phone] Exam Date: 09/28/2020 1320 FAX #: Reason: PREOP EXAMS: CPT: [id number] XR CHEST 1 V 05173 Fluoro Time: DAP (Gy m2): Air Kerma (mGy): <Continued> Technologist: RT Emily(R)(CT) Trnscb Date/Time: 09/28/2020 (8163) 16 Orig Print D/T: S: 09/28/2020 (8176) PAGE 2 SignedReportPROTHROMBIN [id number] 13:29:00 Test Item Value Reference Range Interpretation Comments PT PATIENT (test code = PTP) 10.6 SECONDS 9.3-12.9 N INTERNATIONAL NORMAL RATIO 0.95 INR Unit 0.8-1.2 N (test code = INR) THROMBOPLASTIN TIME [id number] 13:29:00 Test Item Value Reference Range Interpretation Comments THROMBOPLASTIN TIME PARTIAL 28.0 SECONDS 26-35 N (test code = PTT) CBC W/AUTO [id number] 13:26:00 Test Item Value Reference Range Interpretation [...] code NO DIFF/SCN CRITERIA = MDIFF) POCT-GLUCOSE [id number] 10:22:00 Test Item Value Reference Range Interpretation Comments POC-GLUCOSE METER 102 mg/dL 70-[address] [facility] 6720 (ARNOL) (test code = AYLIN [place] 1538) [address] MR, MRA, BRAIN, WITHOUT [id number] 09:32:00Reason for exam:->Ischemic Stroke EvaluationFINAL REPORT MRA Head CLINICAL HISTORY: Ischemic Stroke TECHNIQUE: MRA of the head utilizing 3-D escb-bs-bzbdsx technique, with 3-D reconstructions. COMPARISON: None FINDINGS: There is no evidence of intracranial aneurysm, focal stenosis, or major branch vessel occlusion. IMPRESSION: No evidence for a major [place] proximal branch vessel occlusion. MRA Neck CLINICAL HISTORY: Ischemic Stroke TECHNIQUE: MRA of the neck utilizing 2-D and 3-D cppq-xv-yjqeav technique, with 3-D reconstructions. COMPARISON: None FINDINGS: The carotid arteries in the neck are patent including their bifurcations. There is antegrade flow in the vertebral arteries in the neck. IMPRESSION: No evidence of hemodynamically significant stenosis in the cervical carotid or vertebral arteries by NASCET criteria. Signed: Santos Winn MDReport Verified Date/Time: 08/21/2018 09:32:09 Reading Location: [facility] Neuro Reading Room MR, MRA, NECK, WITHOUT IV [id number] 09:32:00Reason for exam:->Ischemic Stroke EvaluationFINAL REPORT MRA Head CLINICAL HISTORY: Ischemic Stroke TECHNIQUE: MRA of the head utilizing 3-D tpzo-pm-uhiqby technique, with 3-D reconstructions. COMPARISON: None FINDINGS: There is no evidence of intracranial aneurysm, focal stenosis, or major branch vessel occlusion. IMPRESSION: No evidence for a major [place] proximal branch vessel occlusion. MRA Neck CLINICAL HISTORY: Ischemic Stroke TECHNIQUE: MRA of the neck utilizing 2-D and 3-D fouc-du-znysnf technique, with 3-D reconstructions. COMPARISON: None FINDINGS: The carotid arteries in the neck are patent including their bifurcations. There is antegrade flow in the vertebral arteries in the neck. IMPRESSION: No evidence of hemodynamically significant stenosis in the cervical carotid or vertebral arteries by NASCET criteria. Signed: Santos Winn Verified Date/Time: 08/21/2018 09:32:09 Reading Location: [address] Reading Room MR, BRAIN, WITHOUT [id number] 09:25:00Reason for exam:- >Ischemic Stroke EvaluationFINAL REPORT [...] Winn Verified Date/Time: 08/21/2018 09:25:25 Reading Location: [address] Neuro R eading Room POCT-GLUCOSE [id number] 21:26:00 Test Item Value Reference Range Interpretation Comments POC-GLUCOSE METER 119 mg/dL 70-110 H TESTED AT [place] [address] [facility] (test code = AYLIN Rivera [place] 1538) [address] POCT-GLUCOSE [id number] 18:03:00 Test Item Value Reference Range Interpretation Comments POC-GLUCOSE METER 119 mg/dL 70-110 H TESTED AT [place] [address] ([facility]) (test code = AYLIN Rivera [facility] 1538) [address] POCT-GLUCOSE [id number] 12:39:00 Test Item Value Reference Range Interpretation Comments POC-GLUCOSE METER 120 mg/dL 70-110 H TESTED AT [place] [address] ([place]) (test code = AYLIN Rivera [facility] 1538) [address] RAD, CHEST, 1 VIEW, NON [id number] 12:04:00Reason for exam:->To Locate Heart Device (Pacemaker)Should [...] MDReport Verified Date/Time: 08/20/2018 12:04:06 Reading Location: [facility] Radiology Reading Room POCT-GLUCOSE [id number] 09:17:00 Test Item Value Reference Range Interpretation Comments POC-GLUCOSE METER 121 mg/dL 70-110 H TESTED AT [place] [address] ([place]) (test code = AYLIN Rivera [facility] 1538) [address] BASIC METABOLIC [id number] 06:56:00 Test Item Value Reference Range Interpretation [...] NOT APPLICABLE FOR DIALYSIS PATIEN TS. POCT-GLUCOSE [id number] 21:09:00 Test Item Value Reference Range Interpretation Comments POC-GLUCOSE METER 109 mg/dL 70-[address] [facility] 67 (BEAKER) (test code = [facility] Miguel [facility] 1538) [address] POCT-GLUCOSE [id number] 17:15:00 Test Item Value Reference Range Interpretation Comments POC-GLUCOSE METER 117 mg/dL 70-110 H TESTED AT [place] [address] ([facility] (test code = [facility] 1538) [address] VITAMIN B12 AND [id number] 06:39:00 Test Item Value Reference Range Interpretation Comments VITAMIN B12 (BEAKER) (test code = 524 pg/mL 213-816 774) FOLATE (BEAKER) (test code = 362) 13.5 ng/mL >=7.0 BASIC METABOLIC [id number] 05:48:00 Test Item Value Reference Range Interpretation Comments SODIUM (BEAKER) 139 meq/L 136-145 (test code = 381) POTASSIUM (BEAKER) 4.0 meq/L 3.5-5.1 (test code = 379) CHLORIDE (BEAKER) 107 meq/L 98-107 (test code = 382) CO2 (BEAKER) (test 24 meq/L -29 code = 355) BLOOD UREA NITROGEN 11 [...] S NOT APPLICABLE FOR DIALYSIS PATIEN TS. [id number] 15:42:00 Test Item Value Reference Range Interpretation Comments RPR SCREEN (BEAKER) (test code = Nonreactive Nonreactive 420) HEMOGLOBIN [id number] 09:14:00 Test Item Value Reference Range Interpretation Comments HEMOGLOBIN A1C (BEAKER) (test code = 5.3 % 4.3-6.1 368) TSH/FREE T4 IF [id number] 04:49:00 Test Item Value Reference Range Interpretation Comments THYROID STIMULATING HORMONE 3.18 uIU/mL 0.35-4.94 (BEAKER) (test code = 772) BASIC METABOLIC [id number] 04:38:00 Test Item Value Reference Range Interpretation [...] NOT APPLICABLE FOR DIALYSIS PATIEN TS. LIPID [id number] 04:38:00 Test Item Value Reference Range Interpretation [...] 130-159 High 160-189 Very High >=190HEPATIC FUNCTION [id number] 04:38:00 Test Item Value Reference Range Interpretation [...] (test code = 413) AFB Culture and [id number] 13:24:00Specimen/Source: Wound/PACEMAKERCollected: 09/05/2017 19:45 Status: Final Last Updated: 11/01/2017 13:24 CJH-Kkxqx-Uynjhkpnqoei (Final) (Final) 09/07/17 No acid fast bacill seen on direct smear Culture Result (Final) (Final) 11/01/17 No growth of AFB at six (6) weeksFungus Culture with [id number] 12:12:00 Specimen/Source: Wound/PACEMAKERCollected: 09/05/2017 19:45 Status: Final Last Updated: 10/22/2017 12:12 Fungal Smear Result (Final) (Final) 09/06/17 No yeast or hyphae seen Culture Result (Final) (Final) 10/22/17 No fungus isolated at 6 weeksCulture, Blood [id number] 08:23:00Specimen: BloodCollected: 09/04/2017 20:30 Status: Final Last Updated: 09/10/2017 08:23 Culture Result (Final) (Final) No Growth After 5 DaysCulture, Blood [id number] 08:23:00Specimen: BloodCollected: 09/04/2017 20:15 Status: Final Last Updated: 09/10/2017 08:23 Culture Result (Final) (Final) No Growth After 5 DaysCulture, Wound [id number] 08:52:00Specimen: WoundCollected: 09/05/2017 19:45 Status: Final Last Updated: 09/08/2017 08:52 Gram Stain (Final) (Final) 09/06/17 No organisms seen, Few WBC's Culture Result (Final) (Final) 09/08/17 Anaerobic culture:No anaerobes isolated at 3 days Isolate (Final) (Final) 09/07/17Few Staph-coag positive Isolate Staph-coag positive JERMAINE (mcg/ml) Amoxicillin/Clav (AUG)<=4/2 Susceptible Ampicillin (AM) >8 Resistant Ampicillin/Sulb (A/S) <=8/4 Susceptible Cefazolin (CFZ) <=4 Susceptible Ceftriaxone (DELINQUENT ACCOUNT CLERK) <=4 Susceptible Chloramphenicol (C) <=8 Susceptible Ciprofloxacin (CP) <=1 Susceptible Clindamycin (CM) 0.5 Susceptible Erythromycin (E) <=0.25 Susceptible Gentamicin (GM) <=1 Susceptible Imipenem (IMP) <=4 Susceptible Levofloxacin (LEV) <=0.5 Susceptible Linezolid (LNZ) 4 Susceptible Oxacillin (OX1) 0.5 Susceptible Penicillin (P) >8 Resistant Rifampin (RA) <=1 Susceptible Tetracycline (TE) <=1 Susceptible Trimethoprim/Sulfa <=0.5/9.Susceptible (SXT) 5 Vancomycin (VA) 2 SusceptibleRenal [id number] 08:51:00 Test Item Value Reference Range Interpretation [...] National Kidney Foundation,http :[email or web address] [email or web address].nih.gov CBC with [id number] 07:39:00 Test Item Value Reference Range Interpretation [...] code = ALYMPH) 1.7 K/cumm 0.5-4.6 N Quay Abs (test code = AMONO) 0.3 K/cumm 0.0-1.2 N Eos Abs (test code = AEOS) 0.29 K/cumm 0.00-0.74 N Baso Abs (test code = ABASO) 0.0 K/cumm 0.00-0.21 N Vancomycin, [id number] 12:33:00 Test Item Value Reference Range Interpretation Comments Ghazal Trou (test code = VANTR) 7.9 ug/mL 10.0-20.0 L Magnesium, [id number] 06:37:00 Test Item Value Reference Range Interpretation Comments Magnesium (test code = MG) 2.4 mg/dL 1.7-2.5 N Renal [id number] 06:29:00 Test Item Value Reference Range Interpretation [...] National Kidney Foundation,http :[email or web address] ep.nih.gov BHCG, Serum, [id number] 06:26:00 Test Item Value Reference Range Interpretation Comments Preg Qual [Se] (test code = BSHCG) Negative Negative N CBC with [id number] 06:24:00 Test Item Value Reference Range Interpretation [...] code = ALYMPH) 1.6 K/cumm 0.5-4.6 N Quay Abs (test code = AMONO) 0.4 K/cumm 0.0-1.2 N Eos Abs (test code = AEOS) 0.18 K/cumm 0.00-0.74 N Baso Abs (test code = ABASO) 0.0 K/cumm 0.00-0.21 N XR CHEST 1 [id number] 16:29:55XR CHEST 1 VIEWLOCATION: [id number]: None.INDICATION: REVIEW PICC LINE PLACEMENTDISCUSSION:AP chest and [...] = TSH) 3.44 mIU/mL 0.270-4.200 N Lipid [id number] 05:47:00 Test Item Value Reference Range Interpretation [...] (test code = 3 LDLPHDL) Basic Metabolic [id number] 05:47:00 Test Item Value Reference Range Interpretation [...] the National Kidney Foundation,http ://nkd ep.nih.gov Magnesium, [id number] 05:47:00 Test Item Value Reference Range Interpretation Comments Magnesium (test code = MG) 2.3 mg/dL 1.7-2.5 N CBC with [id number] 05:36:00 Test Item Value Reference Range Interpretation [...] code = ALYMPH) 2.2 K/cumm 0.5-4.6 N Quay Abs (test code = AMONO) 0.3 K/cumm 0.0-1.2 N Eos Abs (test code = AEOS) 0.24 K/cumm 0.00-0.74 N Baso Abs (test code = ABASO) 0.0 K/cumm 0.00-0.21 N Partial Thromboplastin [id number] 21:26:00 Test Item Value Reference Range Interpretation Comments aPTT (test code = PTT) 29.00 seconds 24.39-37.25 N Prothrombin [id number] 21:26:00 Test Item Value Reference Range Interpretation Comments PT (test code = PT) 10.70 seconds 9.78-13.35 N INR (test code = INR) 0.95 Ratio 0.6-1.2 N Comprehensive Metabolic [id number] 21:23:00 Test Item Value Reference Range Interpretation [...] National Kidney Foundation,http ://nkd ep.nih.gov CBC with [id number] 21:16:00 Test Item Value Reference Range Interpretation [...] code = ALYMPH) 2.2 K/cumm 0.5-4.6 N Quay Abs (test code = AMONO) 0.4 K/cumm 0.0-1.2 N Eos Abs (test code = AEOS) 0.17 K/cumm 0.00-0.74 N Baso Abs (test code = ABASO) 0.1 K/cumm 0.00-0.21 N
[2021-03-16] MEDS ORDERED: LORazepam 2 MG/ML VIAL ONE (13:45)
[2021-03-16 13:56] LABS: Absolute Lymphocytes (CBC) 2.1 K/uL (0.7-4.9); Basophils % 0.6 % (0-1.3); Hematocrit 38.9 % (36.0-45.0); Lymphocytes % 20.8 % (15.3-44.8); MPV 8.5 fL (7.6-11.3)
[2021-03-16 13:58] LABS: Protime INR 0.94
[2021-03-16 13:59] LABS: ALT/SGPT 27 U/L (12-78); AST/SGOT 14 U/L (15-37); Albumin 3.6 g/dL (3.4-5.0); Alkaline Phosphatase 114 U/L (45-117); BUN Blood Urea Nitrogen 12 mg/dL (7-18); Bicarbonate 31 mmol/L (21-32); Bilirubin Direct < 0.1 mg/dL (0-0.2); Bilirubin Total 0.2 mg/dL (0.2-1.0); Glucose Level 106 mg/dL (74-106); Magnesium 2.5 mg/dL (1.8-2.4); NT PRO-BNP 84 pg/mL (<125); Protein, Total 7.3 g/dL (6.4-8.2); Sodium Level 142 mmol/L (136-145); Troponin (Emerg Dept Use Only) < 0.02 ng/mL (0.0-0.045)
--- NOTE | 2021-03-16 14:01 | RAD REPORT ---
EXAM DESCRIPTION: RAD - Chest Single View - 03/16/2021 1:17 pm CLINICAL HISTORY: CHEST PAIN COMPARISON: March 13 TECHNIQUE: AP portable chest image was obtained 03/16/2021 1:17 pm . FINDINGS: Lung volumes are low. No peripheral mass or consolidation. Hilar regions within normal razo its. Right-sided pacemaker in place. Heart and vasculature are normal. No measurable pleural effusion and no pneumothorax. No acute bony abnormality seen. No acute aortic findings suspected. IMPRESSION: No acute cardiopulmonary process. No significant change from comparison study.
--- NOTE | 2021-03-16 14:24 | EDPHYS ---
Physician Documentation [facility] Name: Jenni Draper Age: 40 yrs Sex: Female : 1980 Arrival Date: 03/16/2021 Time: 12:24 Bed 15 Private MD: Diya Mora Atiq ED Physician Kong Reyes HPI: 03/16 15:19 This 40 yrs old Female presents to ER via Ambulatory with complaints of Pain kdr All Over, Near Syncope. 15:19 The patient has experienced near-syncope, almost passed out, felt dizzy, felt faint, kdr felt generally weak. Onset: The symptoms/episode began/occurred just prior to arrival, today. Duration: This was a single episode, that is still ongoing. Context: the episode(s) was witnessed, by family, occurred at home, occurred while the patient was at rest, Just prior to the episode the patient experienced dizziness, lightheadedness, weakness, hyperventilation . Associated injury: The patient did not suffer any apparent associated injury. Associated signs and symptoms: Pertinent positives: chest pain, dizziness, lightheadedness, palpitations, tingling. Current symptoms: Unchanged - mild. The patient has experienced similar episodes in the past, a few times. The patient has not recently seen a physician. Historical: - Allergies: 12:58 Adhesives; ph 12:58 Aspirin; ph 12:58 Bactrim; ph 12:58 cefixime; ph 12:58 Benadryl; ph 12:58 Cipro IV; ph 12:58 Clindamycin; ph 12:58 coconut oil; ph 12:58 Demerol; ph 12:58 Detrol; ph 12:58 Diltiazem; ph 12:58 Doxycycline; ph 12:58 FISH PRODUCT DERIVATIVES; ph 12:58 GABAPENTIN; ph 12:58 Iodine; ph 12:58 ivabradine; ph 12:58 Latex, Natural Rubber; ph 12:58 Levofloxacin; ph 12:58 Morphine; ph 12:58 PENICILLINS; ph 12:58 QUETIAPINE; ph 12:58 Seroquel; ph 12:58 Sulfa (Sulfonamide Antibiotics); ph 12:58 Suprax; ph 12:58 tolterodine; ph 18:43 Toradol; ph - Home Meds: 12:58 Abilify 10 mg Oral tab 1 tab once daily [Active]; albuterol sulfate 1.25 mg/3 mL Inhl ph nebu 3 mL 3 times per day [Active]; albuterol sulfate 1.25 mg/3 mL Inhl nebu 3 mL 3 times per day [Active]; alprazolam 0.25 mg Oral tab 1 tab nightly [Active]; atorvastatin 10 mg Oral tab 1 tab once daily [Active]; benztropine 1 mg Oral tab 1 tab 2 times per day [Active]; buspirone 15 mg Oral tab 1 tab 2 times per day [Active]; Coreg 25 mg Oral tab 1 tab 2 times per day [Active]; Daliresp 500 mcg Oral tab 1 tab once daily [Active]; digoxin 125 mcg Oral tab [Active]; Effexor XR 150 mg Oral cp24 1 cap once daily [Active]; Eliquis 5 mg Oral tab once a day [Active]; esomeprazole magnesium 40 mg Oral cpDR 1 cap once daily [Active]; Keppra 1,000 mg Oral tab 1 tab every 12 hours [Active]; loratadine 10 mg Oral tab 1 tab once daily [Active]; pregabalin 25 mg Oral 1 cap daily [Active]; ProAir HFA 90 mcg/actuation inhalation HFAA 2 puffs every 6 hours [Active]; Spiriva with HandiHaler 18 mcg inhalation CpDv 1 cap once daily [Active]; Topamax 100 mg Oral tab 2 tabs 2 times per day [Active]; venlafaxine 150 mg Oral cp24 1 cap once daily [Active]; - PMHx: 12:58 Asthma; Atrial Fib; Bronchitis; CHF; mitral valve prolapse; ph - PSHx: 12:58 pacemaker; Hysterectomy; Cholecystectomy; ph - Immunization history:: Client reports receiving the 2nd dose of the Covid vaccine. - Social history:: Smoking status: Patient denies any tobacco usage or history of. ROS: 15:19 Constitutional: Negative for fever, chills, and weight loss, Eyes: Negative for injury, kdr pain, redness, and discharge, ENT: Negative for injury, pain, and discharge, Neck: Negative for injury, pain, and swelling, Cardiovascular: Negative for chest pain, palpitations, and edema, Abdomen/GI: Negative for abdominal pain, nausea, vomiting, diarrhea, and constipation, Back: Negative for injury and pain, : Negative for injury, bleeding, discharge, and swelling, MS/Extremity: Negative for injury and deformity, Skin: Negative for injury, rash, and discoloration, Psych: Negative for depression, anxiety, suicide ideation, homicidal ideation, and hallucinations, Allergy/Immunology: Negative for hives, rash, and allergies, Endocrine: Negative for neck swelling, polydipsia, polyuria, polyphagia, and marked weight changes, Hematologic/Lymphatic: Negative for swollen nodes, abnormal bleeding, and unusual bruising. 15:19 Respiratory: Positive for shortness of breath, Negative for cough, dyspnea on exertion, hemoptysis, orthopnea, pleurisy. 15:19 Neuro: Positive for dizziness, tingling, weakness, Negative for altered mental status, gait disturbance, headache, hearing loss, loss of consciousness, numbness, seizure activity, speech changes, syncope, near syncope, visual changes. Exam: 15:19 Constitutional: This is a well developed, well nourished patient who is awake, alert, kdr and in no acute distress. Head/Face: Normocephalic, atraumatic. Eyes: Pupils equal round and reactive to light, extra-ocular motions intact. Lids and lashes normal. Conjunctiva and sclera are non-icteric and not injected. Cornea within normal limits. Periorbital areas with no swelling, redness, or edema. Neck: Trachea midline, no thyromegaly or masses palpated, and no cervical lymphadenopathy. Supple, full range of motion without nuchal rigidity, or vertebral point tenderness. No Meningismus. Chest/axilla: Normal chest wall appearance and motion. Nontender with no deformity. No lesions are appreciated. Cardiovascular: Regular rate and rhythm with a normal S1 and S2. No gallops, murmurs, or rubs. Normal PMI, no JVD. No pulse deficits. Respiratory: Lungs have equal breath sounds bilaterally, clear to auscultation and percussion. No rales, rhonchi or wheezes noted. No increased work of breathing, no retractions or nasal flaring. Abdomen/GI: Soft, non-tender, with normal bowel sounds. No distension or tympany. No guarding or rebound. No evidence of tenderness throughout. Back: No spinal tenderness. No costovertebral tenderness. Full range of motion. Skin: Warm, dry with normal turgor. Normal color with no rashes, no lesions, and no evidence of cellulitis. MS/ Extremity: Pulses equal, no cyanosis. Neurovascular intact. Full, normal range of motion. Neuro: Awake and alert, GCS 15, oriented to person, place, time, and situation. Cranial nerves II-XII grossly intact. Motor strength 5/5 in all extremities. Sensory grossly intact. Cerebellar exam normal. Normal gait. Psych: Awake, alert, with orientation to person, place and time. Behavior, mood, and affect are within normal limits. 15:19 Respiratory: the patient does not display signs of respiratory distress, Respirations: shallow respirations, tachypnea, Breath sounds: are clear throughout. 17:22 ECG was reviewed by the Attending Physician. kdr Vital Signs: 12:45 BP 127 / 84; Pulse 95; Resp 30; Temp 98.5; Pulse Ox 100% on R/A; Weight 58.97 kg; ph Height 4 ft. 11 in. (149.86 cm); 13:32 BP 122 / 76; Pulse 107; Resp 26; Pulse Ox 97% on R/A; ph 14:30 BP 118 / 78; Pulse 101; Resp 24; Temp 98.2; Pulse Ox 98% on R/A; ph 12:45 Body Mass Index 26.26 (58.97 kg, 149.86 cm) ph MDM: 14:23 Patient medically screened. kdr 15:19 Data reviewed: vital signs, nurses notes, lab test result(s), radiologic studies. kdr Counseling: I had a detailed discussion with the patient and/or guardian regarding: the historical points, exam findings, and any diagnostic results supporting the discharge/admit diagnosis, lab results, radiology results, the need for outpatient follow up. Response to treatment: the patient's symptoms have markedly improved after treatment, patient is well hydrated. Special discussion: Based on the patient's history, exam, and Dx evaluation, there is no indication for emergent intervention or inpatient Tx. It is understood by the patient/guardian that if the Sx's persist or worsen they need to return immediately for re-evaluation. I discussed with the patient/guardian in detail that at this point there is no indication for admission to the hospital. It is understood, however, that if the symptoms persist or worsen the patient needs to return immediately for re-evaluation. 03/16 12:53 Order name: CBC with Diff [facility] 03/16 12:53 Order name: Chem 7 kdr 03/16 12:53 Order name: LFT's kdr 03/16 12:53 Order name: Magnesium kdr 03/16 12:53 Order name: NT PRO-BNP kdr 03/16 12:53 Order name: PT-INR kdr 03/16 12:53 Order name: Troponin (emerg Dept Use Only) kdr 03/16 14:00 Order name: Basic Metabolic Panel; Complete Time: 14:11 EDMS 03/16 14:00 Order name: Liver (Hepatic) Function; Complete Time: 14:11 EDMS 03/16 14:00 Order name: Troponin (Emerg Dept Use Only); Complete Time: 14:11 EDMS 03/16 14:00 Order name: NT PRO-BNP; Complete Time: 14:11 EDMS 03/16 14:00 Order name: Magnesium; Complete Time: 14:11 EDMS 03/16 14:05 Order name: Protime (+INR); Complete Time: 14:11 EDMS 03/16 14:05 Order name: CBC with Automated Diff; Complete Time: 14:11 EDMS 03/16 12:53 Order name: CXR XRAY kdr 03/16 12:53 Order name: EKG; Complete Time: 12:54 [facility] 03/16 12:53 Order name: Cardiac monitoring; Complete Time: 13:04 [facility] 03/16 12:53 Order name: EKG - Nurse/Tech; Complete Time: 13:04 [facility] 03/16 12:53 Order name: IV Saline Lock; Complete Time: 13:31 [facility] 03/16 12:53 Order name: Labs collected and sent; Complete Time: 13:31 [facility] 03/16 12:53 Order name: O2 Per Protocol; Complete Time: 12:59 [facility] 03/16 12:53 Order name: O2 Sat Monitoring; Complete Time: 12:59 [facility] 03/16 14:03 Order name: RAD; Complete Time: 14:11 EDMS EC: Rate is 98 beats/min. Rhythm is regular, Normal Sinus Rhythm with No ectopy. QRS [place] kdr is Normal. [place] interval is normal. QRS interval is normal. QT interval is normal. Clinical impression: Normal ECG. Administered Medications: 13:31 Drug: Ativan (LORazepam) 1 mg Route: IVP; Site: left antecubital; ph 14:00 Follow up: Response: No adverse reaction ph Disposition: 03/16/21 14:23 Discharged to Home. Impression: Shortness of breath, Myalgia, Arthralgias. - Condition is Stable. - Discharge Instructions: Musculoskeletal Pain, Shortness of Breath, Evyy-ze-Uvst, Chest Wall Pain, Xini-aw-Ovlr, Nausea and Vomiting, Adult, Agbc-zz-Osla. - Prescriptions for Zofran ODT 4 mg Oral tablet,disintegrating - take 1 tablet by ORAL route every 4-6 hours As needed; 16 tablet. Tramadol 50 mg Oral Tablet - take 1 tablet by ORAL route every 8 hours as needed; 12 tablet. - Medication Reconciliation Form, Thank You Letter form. - Follow up: Diya Mora MD; When: 2 - 3 days; Reason: If symptoms return, Further diagnostic work-up, Recheck today's complaints, Continuance of care, Re-evaluation by your physician. - Problem is an ongoing problem. - Symptoms have improved. Signatures: Dispatcher [employer] EDSC Kong Reyes MD MD kdr Darlene Perry RN RN ph Corrections: (The following items were deleted from the chart) 14:41 14:23 03/16/2021 14:23 Discharged to Home. Impression: Shortness of breath; Myalgia; ph Arthralgias. Condition is Stable. Forms are Medication Reconciliation Form, Thank You Letter, Antibiotic Education, Prescription Opioid Use. Follow up: Diya Mora; When: 2 - 3 days; Reason: If symptoms return, Further diagnostic work-up, Recheck today's complaints, Continuance of care, Re-evaluation by your physician. Problem is an ongoing problem. Symptoms have improved. kdr 18:43 12:58 Allergies: tramadol; ph ph
--- NOTE | 2021-03-16 14:24 | ER ---
Nurse's Notes [facility] Name: Jenni Draper Age: 40 yrs Sex: Female : 1980 Arrival Date: 03/16/2021 Time: 12:24 Bed 15 Private MD: Diya Mora Atiq Diagnosis: Shortness of breath;Myalgia;Arthralgias Presentation: 03/16 12:45 Chief complaint: Patient states: Cough, SOB, dizziness, pain all over, N/V/D, pt ph tachypneic on arrival w/ initial Spo2 100% RA, seen last Monday for similar complaint but states that symptoms have worsened. Coronavirus screen: congestion, cough unrelated to allergies, diarrhea, difficulty breathing, muscle pain, nausea, shortness of breath, vomiting. Client presents with at least one sign or symptom that may indicate coronavirus-19. Standard/surgical mask placed on the client. Provider contacted for isolation considerations. refused COVID test at last visist. Ebola Screen: No symptoms or risks identified at this time. Initial Sepsis Screen: Does the patient meet any 2 criteria?. Risk Assessment: Do you want to hurt yourself or someone else? Patient reports no desire to harm self or others. 12:45 Method Of Arrival: Ambulatory ph 12:50 Initial Sepsis Screen: Does the patient have a suspected source of infection? Yes: ph Productive cough/pneumonia. Onset of symptoms was March 16, 2021. 12:50 Acuity: LYUBOV 3 ph Historical: - Allergies: 12:58 Adhesives; ph 12:58 Aspirin; ph 12:58 Bactrim; ph 12:58 cefixime; ph 12:58 Benadryl; ph 12:58 Cipro IV; ph 12:58 Clindamycin; ph 12:58 coconut oil; ph 12:58 Demerol; ph 12:58 Detrol; ph 12:58 Diltiazem; ph 12:58 Doxycycline; ph 12:58 FISH PRODUCT DERIVATIVES; ph 12:58 GABAPENTIN; ph 12:58 Iodine; ph 12:58 ivabradine; ph 12:58 Latex, Natural Rubber; ph 12:58 Levofloxacin; ph 12:58 Morphine; ph 12:58 PENICILLINS; ph 12:58 QUETIAPINE; ph 12:58 Seroquel; ph 12:58 Sulfa (Sulfonamide Antibiotics); ph 12:58 Suprax; ph 12:58 tolterodine; ph 18:43 Toradol; ph - Home Meds: 12:58 Abilify 10 mg Oral tab 1 tab once daily [Active]; albuterol sulfate 1.25 mg/3 mL Inhl ph nebu 3 mL 3 times per day [Active]; albuterol sulfate 1.25 mg/3 mL Inhl nebu 3 mL 3 times per day [Active]; alprazolam 0.25 mg Oral tab 1 tab nightly [Active]; atorvastatin 10 mg Oral tab 1 tab once daily [Active]; benztropine 1 mg Oral tab 1 tab 2 times per day [Active]; buspirone 15 mg Oral tab 1 tab 2 times per day [Active]; Coreg 25 mg Oral tab 1 tab 2 times per day [Active]; Daliresp 500 mcg Oral tab 1 tab once daily [Active]; digoxin 125 mcg Oral tab [Active]; Effexor XR 150 mg Oral cp24 1 cap once daily [Active]; Eliquis 5 mg Oral tab once a day [Active]; esomeprazole magnesium 40 mg Oral cpDR 1 cap once daily [Active]; Keppra 1,000 mg Oral tab 1 tab every 12 hours [Active]; loratadine 10 mg Oral tab 1 tab once daily [Active]; pregabalin 25 mg Oral 1 cap daily [Active]; ProAir HFA 90 mcg/actuation inhalation HFAA 2 puffs every 6 hours [Active]; Spiriva with HandiHaler 18 mcg inhalation CpDv 1 cap once daily [Active]; Topamax 100 mg Oral tab 2 tabs 2 times per day [Active]; venlafaxine 150 mg Oral cp24 1 cap once daily [Active]; - PMHx: 12:58 Asthma; Atrial Fib; Bronchitis; CHF; mitral valve prolapse; ph - PSHx: 12:58 pacemaker; Hysterectomy; Cholecystectomy; ph - Immunization history:: Client reports receiving the 2nd dose of the Covid vaccine. - Social history:: Smoking status: Patient denies any tobacco usage or history of. Screenin:03 Abuse screen: Denies threats or abuse. Denies injuries from another. Nutritional ph screening: No deficits noted. Tuberculosis screening: No symptoms or risk factors identified. Fall Risk None identified. Assessment: 13:01 General: Appears in no apparent distress. uncomfortable, Behavior is cooperative, ph anxious, Denies fever. Pain: Complains of pain in " all over ". Neuro: Level of Consciousness is awake, alert, obeys commands, Oriented to person, place, time, situation, Reports dizziness, Denies blurred vision headache. Cardiovascular: Capillary refill < 3 seconds in bilateral fingers Patient's skin is warm and dry. Respiratory: Reports shortness of breath at rest cough that is Airway is patent Respiratory effort is even, labored, Respiratory pattern is tachypnea. GI: Reports diarrhea, nausea, vomiting. Derm: Skin is intact, Skin is pink, warm \\T\\ dry. Musculoskeletal: Circulation, motion, and sensation intact. Range of motion: intact in all extremities. 14:00 Reassessment: Patient appears in no apparent distress at this time. Patient and/or ph family updated on plan of care and expected duration. Pain level reassessed. Patient is alert, oriented x 3, equal unlabored respirations, skin warm/dry/pink. Vital Signs: 12:45 BP 127 / 84; Pulse 95; Resp 30; Temp 98.5; Pulse Ox 100% on R/A; Weight 58.97 kg; ph Height 4 ft. 11 in. (149.86 cm); 13:32 BP 122 / 76; Pulse 107; Resp 26; Pulse Ox 97% on R/A; ph 14:30 BP 118 / 78; Pulse 101; Resp 24; Temp 98.2; Pulse Ox 98% on R/A; ph 12:45 Body Mass Index 26.26 (58.97 kg, 149.86 cm) ph ED Course: 12:24 Patient arrived in ED. as 12:24 Diya Mora MD is Private Physician. as 12:45 Darlene Perry RN is Primary Nurse. ph 12:48 Kong Reyes MD is Attending Physician. kdr 12:51 Triage completed. ph 13:01 Arm band placed on Patient placed in an exam room, on a stretcher, on sharepoint administrator, ph on pulse oximetry. 13:03 Patient has correct armband on for positive identification. Placed in gown. Bed in low ph position. Call light in reach. Side rails up X 1. beet end supervisor on. Pulse ox on. NIBP on. Door closed. Noise minimized. Warm blanket given. 13:32 Missed attempt(s): 20 gauge in right hand. Inserted saline lock: 22 gauge in left 4 antecubital area, using aseptic technique. 14:22 Diya Mora MD is Referral Physician. kdr 14:40 No provider procedures requiring assistance completed. IV discontinued, intact, ph bleeding controlled, No redness/swelling at site. Pressure dressing applied. Administered Medications: 13:31 Drug: Ativan (LORazepam) 1 mg Route: IVP; Site: left antecubital; ph 14:00 Follow up: Response: No adverse reaction ph Outcome: 14:23 Discharge ordered by MD. kdr 14:41 Patient left the ED. ph 14:41 Discharged to home ambulatory, with significant other. ph 14:41 Condition: good 14:41 Discharge instructions given to patient, Instructed on discharge instructions, follow up and referral plans. medication usage, Demonstrated understanding of instructions, follow-up care, medications, Prescriptions given X 2. Signatures: Kong Reyes MD MD kdr Swetha Rodriguez Patricia, RN RN [place] [id number] Corrections: (The following items were deleted from the chart) 12:50 12:45 BP 127 / 84; Pulse 102bpm; Resp 30bpm; Pulse Ox 95% RA; Temp 98.5F; 58.97 kg; ph Height 4 ft. 11 in.; BMI: 26.2; ph 18:43 12:58 Allergies: tramadol; ph ph
[2021-03-16 15:01] VITALS: TEMP 98.5
[2021-03-16 15:02] VITALS: BP 122/76; O2SAT 97
--- NOTE | 2021-03-17 16:32 | EKG ---
Test Date: 2021-03-16 Test Time: 13:04:53 Patcher [employer] Welder: ADAM MEASUREMENT RESULTS: Intervals: Rate: 98 [place]: 144 QRSD: 86 QT: 332 QTc: 423 [place]: P: 50 [place]: 144 QRS: 23 T: 39 INTERPRETIVE STATEMENTS: Normal sinus rhythm Normal ECG Compared to ECG 03/13/2021 13:33:17 Sinus tachycardia no longer present Electronically Signed On 03-17-21 16:29:52 CDT by Nadeem Rajan
== END 2021-03-16 14:41 | disposition home or self-care (01) ==
LOC: ER 12:23
DX: M79.10 Myalgia, unspecified site (principal); M25.50 Pain in unspecified joint; I50.9 Heart failure, unspecified; I48.91 Unspecified atrial fibrillation; Z79.01 Long term (current) use of anticoagulants; Z88.0 Allergy status to penicillin; Z88.1 Allergy status to other antibiotic agents; Z88.3 Allergy status to other anti-infective agents; Z88.5 Allergy status to narcotic agent; Z88.6 Allergy status to analgesic agent; Z88.8 Allergy status to other drugs, medicaments and biological substances; Z91.013 Allergy to seafood; Z91.040 Latex allergy status
CPT/HCPCS: 36415; 71045; 80048; 80076; 83735; 83880; 84484; 85025; 85610; 93005; 96374; 99284

== ENCOUNTER 2021-04-02 23:14 | Emergency (ER) | payer MEDICAID ==
--- OUTSIDE RECORDS SUMMARY | 2021-04-02 23:22 | XMS REPORT | Continuity of Care Document ---
:1980 Author Organization [facility] t Address [address] [place] [id number] Care Team Providers Name Role Phone MILTON Primary Care Physician Unavailable Malena VEGA Attending Clinician Omari RALPH Attending Clinician Unavailable Antonio LARSEN, TMariia Attending Clinician Cici LARSEN, Andrea Attending Clinician Sho LARSEN Attending Clinician Zakia Vera MD Attending Clinician Unavailable ZAKIA VERA Attending Clinician Unavailable LEONOR Attending Clinician Unavailable LINETTE Attending Clinician Unavailable SHO Admitting Clinician Unavailable ZAKIA VERA Admitting Clinician Unavailable LEONOR Admitting Clinician Unavailable LINETTE Admitting Clinician Unavailable Payers Payer Name Policy Type Policy Effective Date Expiration Date Sour ce Number [facility] [id number] 2011 Benny marie STAR+PLUS 00:00:00 [facility] [id number] 2010- PresentHMO MEDICAID - MEDICAID [id number] [address] [facility] CAREGENER[facility] 00:00:00 - Medical MEDICAID Center [id number] 2010- PresentMedicaid Non-Contracted SOLORIO [id number] [address] [place] MEDICAIDMEDICAID 00:00:00 - Medica l [id number] 018-Present Problems Condition Condition Condition Status Onset Resolution Last Treating Co mments Source Name Details Category Date Date Treatment Clinician Date Left-sided Left-sided Disease Active [facility] weakness weakness 02-12 [facility] - 00:[facility]: Medical 00 [place] Received Received Disease [facility] tissue 02[facility]12 [facility] - plasminoge plasminoge 00:00: Ar dical n n 00 Center activator activator (t-PA) (t-PA) less than less than 24 hours 24 hours prior to prior to arrival arrival Acute Acute Disease Active [facility] ischemic ischemic 02-11 [facility] - stroke stroke 00:00: Medical 00 [place] Chest pain Chest pain Disease Active [facility] in adult in adult - [facility] - 00:[facility]: Medical 00 [place] Seizure Seizure Disease Active 2018-[address] [facility] disorder disorder 2- [facility] - 00:[facility]: Medical 00 [place] Anxiety Anxiety Disease Active [facility] disorder disorder 04-29 [facility] - 00:00: Medical 00 [place] Asthma Asthma Disease Active [facility] 8 [facility] - 00:[facility]: Medical 00 [place] Paresthesi Paresthesi Disease Active 2017-[address] a of left a of left 10-17 [facility] - arm and arm and 00:00: Medical leg leg 00 Center PAF PAF Disease Active [facility] (paroxysma (paroxysma 803 Jeanie kes - l atrial l atrial 00:00: Medica l fibrillati fibrillati 00 Ce nter on) on) A-fib A-fib Disease Active [facility] COPD COPD Disease Resolve 2021-03-18 2021-03-18 [place] exacerbati exacerbati d 03-17 00:00:00 14:29:31 Methodi on on 00:00: st 00 Cerebrovas Cerebrovas Disease Resolve 2021-02-12 2021-02-[address] cular cular d 00:00:00 11:42:08 [facility] - accident accident Medica l (CVA), (CVA), Center unspecifie unspecifie d d mechanism mechanism Allergies, Adverse Reactions, Alerts Allergy Allergy Status Severity Reaction(s) Onset Inactive Treating Comm ents Source Name Type Date Date Clinician Penicill DA Active SV [facility] ins 1-04 [place] 00:[facility]: d [facility] Sulfa DA Active MO 0 [facility] (Sulfona 1-04 [place] mide 00:00: d Antibiot 00 Medical [facility]) Center Fish FA Active SV 0 [facility] Containi 1-04 [place] ng 00:00: d Products 00 Medical Center iodine DA Active MO 2020-0 [facility] 1-04 [place] 00:00: d 00 Medical Center morphine DA Active SV 2020-0 [facility] 1-04 [place] 00:00: d 00 [facility] Center aspirin DA Active SV 2020-0 [facility] 1-04 [place] 00:00: d 00 Medical Center cephalex DA Active SV 2020-0 [facility] in 1-04 [place] 00:00: d 00 Medical Center cefixime DA Active MO 2020-0 [facility] 1-04 [place] 00:00: d 00 Medical Center doxycycl DA Active SV 2020-0 [facility] ine 1-04 [place] 00:00: d 00 [facility] clindamy DA Active MO 2020-0 [facility] stephan 1-04 [place] 00:00: d 00 [facility] sulfamet DA Active MO 2020-0 [facility] hoxazole 1-04 [place] 00:00: d 00 [facility] trimetho DA Active MO 2020-0 [facility] prim 1-04 [place] 00:00: d 00 Medical Center ciproflo DA Active SV 2020-0 [facility] xacin -04 [place] 00:00: d 00 Medical Center adhesive DA Active SV 2020-0 [facility] tape -04 [place] 00:00: d 00 Medical Center tramadol DA Active SV 2020-0 [facility] -04 [place] 00:00: d 00 Medical Center gabapent DA Active SV 2020-0 [facility] in - [place] 00:00: d 00 Medical Center diltiaze DA Active SV 2020-0 [facility] m - [place] 00:00: d 00 [facility] Center diphenhy DA Active SV 2020-0 [facility] dramine - [place] 00:00: d 00 Medical Center topirama DA Active SV 2020-0 [facility] te - [place] 00:00: d 00 [facility] Center levoflox DA Active SV 2020-0 [facility] acin - [place] 00:00: d 00 Medical Center quetiapi DA Active MO 2020-0 [facility] ne - [place] 00:00: d 00 [facility] Center tolterod DA Active MO 2020-0 [facility] ine -04 [place] 00:00: d 00 [facility] Center latex DA Active SV 2020-0 [facility] -04 [place] 00:00: d 00 Medical Center ivabradi DA Active MO 2020-0 [facility] ne - [place] 00:00: d 00 [facility] Center coconut FA Active MO 2020-0 [facility] 1-04 [place] 00:00: d 00 [facility] Center Topirama Propensi Active Anaphylaxis [place] te ty to 06-10 Methodi adverse 00:00: st reaction 00 s to drug Ivabradi Propensi Active Rash 2018-09: [place] ty to 0-01 reports Methodi adverse 00:00: passing st reaction 00 out after s to taking drug one dose of that medicine Diltiaze Propensi Active Shortness Of 2018- [facility] m ty to Breath 05-30 [facility]i adverse 00:00: st reaction 00 s to drug Doxycycl Propensi Active Rash [place] ty to 04-29 [facility] adverse 00:00: st reaction 00 s to drug Levoflox Propensi Active Anaphylaxis [place] acin ty to 04-29 [facility] adverse 00:00: st reaction 00 s to drug Cephalex Propensi Active Anaphylaxis [place] in ty to 8 [facility]i adverse 00:00: st reaction 00 s to drug Sulfamet Propensi Active Anaphylaxis, 2017-09 [place] hoxazole ty to Rash 10-17 [facility]i -Trimeth adverse 00:00: st oprim reaction 00 s to drug Cefixime Propensi Active Rash 2017-09 [place] ty to 10-17 [facility] adverse 00:00: st reaction 00 s to drug Tolterod Propensi Active Rash 2017-[address] ine ty to 10-17 [facility] - adverse 00:00: Medical reaction 00 [place] s Gabapent Propensi Active Shortness Of 2017-[address] in ty to Breath, Rash 10-17 [facility] - adverse 00:00: Medical reaction 00 [place] s Iodine Propensi Active Rash 2017-[address] And ty to 10-17 [facility] - Iodide adverse 00:00: Medical Containi reaction 00 [facility] s Products Latex Propensi Active Rash 2017-[address] ty to 10-17 [facility] - adverse 00:00: Medical reaction 00 [place] s Morphine Propensi Active Anaphylaxis 2017-[address] ty to 10-17 [facility] - adverse 00:00: Medical reaction 00 [place] s Penicill Propensi Active Anaphylaxis 2017-[address] ins ty to 10-17 [facility] - adverse 00:00: Medical reaction 00 [place] s Quetiapi Propensi Active 2017-[address] ne ty to 10-17 [facility] - adverse 00:00: Medical reaction 00 [place] s Sulfa Propensi Active Rash 2017-[address] (Sulfona ty to 10-17 [facility] - mide adverse 00:00: Medical Antibiot reaction 00 [facility]) s Cefixime Propensi Active Rash 2017-[address] ty to 10-17 [facility] - adverse 00:00: Medical reaction 00 [place] s Tramadol Propensi Active Rash 2017-[address] ty to 10-17 [facility] - adverse 00:00: Medical reaction 00 [place] s Adhesive Propensi Active Rash 2017-09 Can use [facility] t Tape ty to 10-17 papertape [facility] - adverse 00:00: . Medical reaction 00 [place] s Sulfamet Propensi Active Anaphylaxis 2017-09 C [...] adverse 00:00: Medical reaction 00 Center s Coconut Propensi Active Hives, Rash 2017-09 [place] ty to 10-04 Methodi adverse 00:00: st reaction 00 s to drug Coconut Propensi Active Rash 2017-09 [place] Oil ty to 10-04 Methodi adverse 00:00: st reaction 00 s to drug Other Propensi Active Anaphylaxis, 2017-09 Family [place] ty to Rash, 10-04 history Methodi adverse Swelling 00:00: of st reaction 00 allergic s reaction. Clindamy Propensi Active Rash [place] stephan ty to 01-04 [facility]i adverse 00:00: st reaction 00 s to drug Diphenhy Propensi Active Hives, Other [place] dramine ty to (See 01-04 Methodi adverse Comments) 00:00: st reaction 00 s to drug Gabapent Propensi Active Other (See [place] in ty to Comments), 4-12 Method i adverse Rash, 00:00: st reaction Shortness Of 00 s to Breath drug Iodine Propensi Active Rash [place] And ty to -12 [facility]i Iodide adverse 00:00: st Containi reaction 00 ng s to Products drug Morphine Propensi Active Anaphylaxis 2016-09 [place] ty to 0-05 Methodi adverse 00:00: st reaction 00 s to drug Tramadol Propensi Active Other (See Rash Rash [place] ty to Comments), 06-22 Method i adverse Rash 00:00: st reaction 00 s to drug Quetiapi Propensi Active Other (See confusion [place] ne ty to Comments), - Method i adverse Rash 00:00: st reaction 00 s to drug Ciproflo Propensi Active Other (See [place] xacin ty to Comments) 5- achesMusc Meth jamie adverse 00:00: le aches. st reaction 00 Muscle s to aches drug Aspirin Propensi Active Anaphylaxis [place] ty to 08 [facility]i adverse 00:00: st reaction 00 s to drug Latex Propensi Active Rash 2012-09 "blisters [place] ty to 10-20 "blisters Methodi adverse 00:00: "blisters st reaction 00 " s to drug Penicill Propensi Active Anaphylaxis 2012-09 [place] ins ty to 10-20 Methodi adverse 00:00: st reaction 00 s to drug Sulfa Propensi Active Rash 2012-09 [place] (Sulfona ty to 10-20 Methodi mide adverse 00:00: st Antibiot reaction 00 ics) s to drug Tolterod Propensi Active Rash 2012-09 [place] ty to 10-20 Methodi adverse 00:00: st reaction 00 s to drug Adhesive Propensi Active Rash 2012-09 Can use [place] Tape-Cynthia ty to 10-20 papertape Metho di icones adverse 00:00: . Can use st reaction 00 papertape s to . drug Social History Social Habit Start Date Stop Date Quantity Comments Source History [facility] Meth odist Alcohol Std Drinks History [facility] Meth odist Alcohol Binge Exposure to Not sure [place] Metho dist SARS-CoV-2 (event) Sex Assigned At [facility] Tobacco use and 2021-03-17 2021-03-17 Never used Bney M ethodist exposure 00:00:00 00:00:00 History SDOH 2018-09-05 2018-09-05 1 [place] Meth odist Alcohol Frequency 00:00:00 00:00:00 Alcohol intake 2018-08-18 2018-08-[address] [facility] Lena Warekes - 00:00:00 00:00:00 of [facility] (finding) Smoking Status Start Date Stop Date Source Former smoker 2021-03-17 00:00:00 2021-03-17 00:00:00 [place] [facility] Medications Ordered Filled Start Stop Current Ordering Indication Dosage Frequency Signature Comments Components Source Medication Medication Date Date Medication? Clinician (SIG) Name Name fluticasone Yes 100ug QD 2 sprays [place] propionate 6-25 (100 mcg Metho di (FLONASE) 00:00: total) by st 50 00 Each Nare mcg/actuati route on nasal daily. spray fexofenadin 2020- Yes 180mg QD Take 1 [place] e (SUDHAKAR) 6-25 07-25 tablet Metho di 180 MG 00:00: 23:59 ([address] tablet 00 :00 total) by mouth daily for 30 days. fluticasone 0 2020- No QD Inhale 1 [place] furoate-natan 6-24 06-24 inhalation M ethodi anteroL 17:52: 00:[address] (Breo 47 :00 Ellipta) 100-25 mcg/dose blister with device powder for inhalation fluticasone 2020- No 1{puff} Q.5D Inhale 1 [place] propionate 24 06-24 puff 2 Method i (FLOVENT 17:52: 00:00 (two) st HFA) 110 47 :00 times a mcg/actuati day. on inhaler benztropine Yes 1mg Q.5D Take 1 mg [place] (COGENTIN) 6-24 by mouth 2 Met hodi 1 MG tablet 17:52: (two) st 44 times a day. busPIRone Yes 15mg Q.5D Take 15 mg [place] (BUSPAR) 10 6-24 by mouth 2 Me thodi MG tablet 17:52: (two) st 44 times a day. digOXIN Yes 125ug QD Take 125 [place] (LANOXIN) 6-24 mcg by Methodi 125 mcg 17:52: mouth st tablet 44 daily. ALPRAZolam Yes .25mg QD Take 0.25 [place] (XANAX) 6-24 mg by Methodi 0.25 MG 17:52: mouth st tablet 44 nightly as needed for anxiety. carvediloL Yes 25mg Q.5D Take 25 mg [place] (COREG) 25 6-24 by mouth 2 Met hodi MG tablet 17:52: (two) st 44 times a day with meals. venlafaxine Yes 150mg QD Take 150 [place] XR 6-24 mg by Methodi (EFFEXOR-XR 17:52: mouth st ) 150 MG 24 44 daily. hr capsule apixaban 2021-0 Yes 5mg Q.5D Take 5 mg [place] (ELIQUIS) 5 6-24 by mouth 2 Me thodi mg tablet 17:52: (two) st 44 times a day. famotidine 0 Yes 20mg QD Take 20 mg [place] (PEPCID) 20 6-24 by mouth Meth jamie MG tablet 17:52: nightly. st 44 levETIRAcet 0 Yes 1000mg Q.5D Take 1,000 [place] am (KEPPRA) 6-24 mg by Methodi 1000 MG 17:52: mouth 2 st tablet 44 (two) times a day. pregabalin 0 Yes 50mg QD Take 50 mg [place] (LYRICA) 50 6-24 by mouth Meth jamie MG capsule 17:52: nightly. st 44 cariprazine 0 Yes 1.5mg QD Take 1.5 [place] (Vraylar) 6-24 mg by Methodi 1.5 mg 17:52: mouth st capsule 44 nightly. 2 capsules cholecalcif 0 Yes 2000U QD Take 2,000 [place] florentino, 6-24 Units by Methodi vitamin D3, 17:52: mouth st 1,000 unit 44 daily. tablet tiotropium Yes 1{capsu QD Place 1 [place] (SPIRIVA) 6-24 le} capsule Methodi 18 mcg per 17:52: into st inhalation 44 inhaler capsule and inhale once daily. rosuvastati 0 Yes 5mg QD Take 5 mg [place] n (CRESTOR) 6-24 by mouth Meth jamie 5 mg tablet 17:52: daily. st 44 cycloSPORIN 0 Yes 1[drp] Q.5D 1 drop 2 [place] E 6-24 (two) Methodi (RESTASIS) 17:52: times a st 0.05 % 44 day. ophthalmic emulsion albuterol 0 Yes 1{ampul Q.[id number] Take 1 [place] (ACCUNEB) 6-24 e} [id number] ampule by Methodi 1.25 mg/3 17:52: 3D nebulizati st mL 44 on 3 nebulizer (three) solution times a day. esomeprazol 2020-0 2021- No 20mg QD Take 20 mg [place] e (NexIUM) 6-24 06-24 by mouth Meth jamie 20 MG 15:19: 00:[address] capsule 48 :00 before breakfast. fluticasone Yes QD Inhale 1 [place] furoate-natan 03-18 inhalation Me thodi anteroL 00:00: s daily. st (Breo 00 Ellipta) 200-25 mcg/dose blister with device powder for inhalation albuterol Yes 2{puff} Q4H Inhale 2 [place] (PROAIR 6-24 puffs Methodi HFA) 90 00:00: every 4 st mcg/actuati 00 (four) on inhaler hours as needed for wheezing. esomeprazol 2020- Yes 40mg QD Take 1 Benny ston e (NexIUM) 03-18 capsule Metho di 40 MG 00:00: 23:59 ([address] capsule 00 :00 total) by mouth daily before breakfast for 30 days. ibuprofen 2020- No 600mg Q8H Take 1 [place] (ADVIL) 600 03-18 tablet Metho di MG tablet 00:00: 23:59 ([address] 00 :00 total) by mouth every 8 (eight) hours for 5 days. methylPREDN 2020- No follow Benny ston ISolone 03-18 package Methodi (Medrol, 00:00: 23:[address] Juliocesar,) 4 mg 00 :00 tablet promethazin 2020- No 12.5mg Q6H Take 1 [place] e 03-18 tablet Methodi (PHENERGAN) 00:00: 23:59 (12.5 mg s t 12.5 MG 00 :00 total) by tablet mouth every 6 (six) hours as needed for nausea or vomiting for up to 3 days. ARIPiprazol 2020- No 5mg QD Take 5 mg [place] e (ABILIFY) 03-17 by mouth Met hodi 5 MG tablet 20:39: 00:[address] 34 :00 ARIPiprazol 2020- No 10mg QD Take 10 mg [place] e (ABILIFY) 03-17 by mouth Met hodi 10 MG 20:39: 00:[address] tablet 25 :00 ALPRAZolam Yes .25mg Take 0.25 C HI [...] MG 14:04: mouth Medical tablet 46 daily. [place] venlafaxine Yes 150mg QD Take [address] (EFFEXOR-XR 5-21 mg by [facility] - ) 150 MG 24 14:04: mouth Medic al hr capsule 46 daily. [place] apixaban Yes 5mg QD Take [address] (ELIQUIS) 5 5-21 by mouth Luke s - mg Tab 14:04: daily. Medical tablet 46 [place] levETIRAcet Yes 1000mg Q.5D Take 1,[address] am (KEPPRA) 5-21 mg by [facility] - 1000 MG 14:04: mouth 2 Medical tablet 46 (two) Center times daily. loratadine Yes 10mg QD Take [address] (CLARITIN) 5-21 by mouth [facility] - 10 mg 14:04: daily. Medical tablet 46 [place] pregabalin Yes 50mg QD Take [address] (LYRICA) 25 5-21 by mouth Luke s - MG capsule 14:04: nightly . Me dical 46 Center esomeprazol Yes 40mg QD [...] mouth [facility] - MG tablet 14:04: nightly. [facility] blane 46 Center carvediloL Yes 25mg Take [...] Q.5D Take [address] (ACCUNEB) - 05-21 e} ampule by Luke s - 1.25 mg/3 11:39: 00:00 nebulizati M edical mL 17 :00 on 2 (two) Center nebulizer times solution daily . fluticasone 2020- No 1{puff} QD Inhale [address] -vilanterol -21 05-21 puff by Luke s - (BREO 11:39: 00:00 mouth via Medica l ELLIPTA) 17 :00 inhaler Center 100-25 daily. mcg/dose DsDv tiotropium 2020- No 18ug QD Inhale [address] (SPIRIVA) -21 05-21 mcg by [facility] - 18 mcg [...] 12 :00 (two) Center times daily. levothyroxi No 125ug Take [address] ne 5-19 05-19 mcg by [facility] - (SYNTHROID, 22:20: 00:00 mouth Medi blane LEVOTHROID) 38 :00 Every Center 125 MCG morning on tablet an empty stomach. benztropine No 2mg Take [address] (COGENTIN) - 05-19 by mouth 3 Jeanie kes - 2 MG tablet 22:18: 00:00 (three) Me dical 40 :00 times Center daily as needed. benztropine No 1mg Take [address] (COGENTIN) -10 02-19 by mouth Luke s - 1 MG tablet 22:18: 00:00 daily as M edical 31 :00 needed. [place] ARIPiprazol No 5mg QD Take [address] e (ABILIFY) 5- 05-19 by mouth Berta es - 5 MG tablet 22:18: 00:00 nightly. M edical 03 :00 [place] ARIPiprazol No 10mg QD Take [address] e (ABILIFY) 5- 05-19 by mouth Berta es - 10 MG 22:17: 00:00 daily. Medical disintegrat 48 :00 Center ing tablet Vital Signs Vital Name Observation Time Observation Value Comments Source Oxygen saturation in 2021-03-18 15:00:00 97 /min Beny Ortiz Arterial blood by Pulse oximetry Systolic blood 2021-03-18 12:24:48 132 mm[Hg] [place] [facility] pressure Diastolic blood 2021-03-18 12:24:48 72 mm[Hg] [place] [facility] pressure Heart rate 2021-03-18 12:24:48 96 /min Beny Ortiz Body temperature 2021-03-18 12:24:48 37 Ayaka Connor [facility] Respiratory rate 2021-03-18 12:24:48 14 /min Connor [facility] Body height 2021-03-17 20:37:00 149.9 cm [place] [facility] Body weight 2021-03-17 19:09:00 58.968 kg [place] [facility] BMI 2021-03-17 19:09:00 26.26 kg/m2 [place] [facility] Systolic blood 2021-02-12 12:00:00 101 mm[Hg] [facility] Diastolic blood 2021-02-12 12:00:00 72 mm[Hg] [facility] Heart rate 2021-02-12 12:00:00 93 /min [facility] Respiratory rate 2021-02-12 12:00:00 18 /min [facility] Oxygen saturation in 2021-02-12 12:00:00 96 /min [facility] - Arterial blood by Medical Ce nter Pulse oximetry Body temperature 2021-02-12 11:00:00 37.56 Ayaka [facility] Body weight 2021-02-11 10:15:00 59.5 kg [facility] BMI 2021-02-11 10:15:00 26.48 kg/m2 [facility] Body height 2021-02-11 10:15:00 149.9 cm [facility] Procedures Procedure Date / Time Performing Clinician Source Performed POC GLUCOSE 2021-03-18 12:31:00 Cliff Berkowitz Meth odist ECG 12-LEAD 2021-03-18 12:28:01 Christa Bolanos Me thodist TROPONIN 2021-03-18 11:41:00 Christa Bolanos Me thodist TTE COMPLETE, WO 2021-03-18 09:19:12 Christa Bolanos M ethodist CONTRAST, W DOPPLER ([id number]) POC GLUCOSE 2021-03-18 08:14:00 Christa Bolanos Me thodist HC COMPLETE BLD COUNT 2021-03-18 05:00:00 Christa Bolanos [facility] W/AUTO DIFF COMPREHENSIVE METABOLIC 2021-03-18 05:00:00 Cici, Christa [place] [facility] PANEL MAGNESIUM LEVEL 2021-03-18 05:00:00 Cici, Christa [place] Ar thodist PHOSPHORUS LEVEL 2021-03-18 05:00:00 Cici, Christa [facility] ethodist LIPID PANEL 2021-03-18 05:00:00 Cici, Christa [place] Ar thodist HEMOGLOBIN A1C 2021-03-18 05:00:00 Cici, Christa [place] Ar thodist ESTIMATED GFR 2021-03-18 05:00:00 Violeteq, Christa [place] Ar [facility]odist URINE CULTURE 2021-03-18 01:12:00 Cici, Christa [place] Ar thodist URINALYSIS SCREEN AND 2021-03-18 00:36:00 Laeeq, Christa Ortiz MICROSCOPY, WITH REFLEX TO CULTURE LEGIONELLA URINARY 2021-03-18 00:36:00 Laeeq, Christa Ortiz ANTIGEN STREPTOCOCCUS PNEUMONIAE 2021-03-18 00:36:00 Laeeq, Christa Ortiz URINARY ANTIGEN BLOOD CULTURE, AEROBIC & 2021-03-17 23:35:00 Laeeq, Christa Ortiz ANAEROBIC BLOOD CULTURE, AEROBIC & 2021-03-17 23:25:00 Violeteq, Christa Ortiz ANAEROBIC DIGOXIN LEVEL 2021-03-17 23:24:00 Christa Bolanos Ar thodist TROPONIN 2021-03-17 23:24:00 Hector Alvarez ethodist LACTIC ACID LEVEL, SEPSIS 2021-03-17 23:24:00 Christa Bolanos - NOW AND REPEAT 2X EVERY 3 HOURS POC GLUCOSE 2021-03-17 20:38:00 Christa Bolanos Ar thodist ARTERIAL BLOOD GAS 2021-03-17 20:10:00 Christa Bolanos US DUPLEX VENOUS LOWER 2021-03-17 20:00:06 Christa Bolanos ston [facility] EXTREMITY BILATERAL LACTIC ACID LEVEL, SEPSIS 2021-03-17 18:47:00 Christa Bolanos - NOW AND REPEAT 2X EVERY 3 HOURS TROPONIN 2021-03-17 18:47:00 Christa Bolanos thodist XR CHEST 1 VW PORTABLE 2021-03-17 16:20:18 Hector Alvarez TROPONIN 2021-03-17 16:05:00 Christa Bolanos thodist B NATRIURETIC PEPTIDE 2021-03-17 16:05:00 Hector Alvarez D-DIMER 2021-03-17 16:05:00 Hector Alvarez ethodi ESTIMATED GFR 2021-03-17 16:05:00 Hector Alvarez HC COMPLETE BLD COUNT 2021-03-17 16:05:00 Hector Alvarez W/AUTO DIFF LACTIC ACID LEVEL, SEPSIS 2021-03-17 16:05:00 Christa Bolanos - NOW AND REPEAT 2X EVERY 3 HOURS COMPREHENSIVE METABOLIC 2021-03-17 16:05:00 Hector Alvarez [facility] PANEL ECG ED PRELIMINARY 2021-03-17 15:36:46 Hectro Alvarez [facility] INTERPRETATION ECG 12-LEAD 2021-03-17 15:19:38 Hector Alvarez BASIC METABOLIC PANEL (7) 2021-02-12 05:34:00 Alison Prado [facility] MAGNESIUM 2021-02-12 05:34:00 Alison Prado [facility] PHOSPHORUS 2021-02-12 05:34:00 JohanAlison [facility] CBC W/PLT COUNT & AUTO 2021-02-12 04:48:00 Alison Prado I [facility] MR BRAIN WITHOUT IV 2021-02-11 16:08:[facility] 2021-02-11 16:07:00 Igor Chew [facility] MRA NECK WITHOUT IV 2021-02-11 16:07:00 Igor Chew [facility] RAPID DRUG SCREEN, URINE 2021-02-11 03:05:00 [facility] URINALYSIS WITH 2021-02-11 03:05:00 [facility] IF INDICATED [facility] URINALYSIS MICROSCOPIC 2021-02-11 03:05:00 Alison Prado [facility] HOMOCYSTEINE 2021-02-11 02:46:00 Johan [facility] RPR 2021-02-11 02:46:00 Johan [facility] TSH/FREE T4 IF INDICATED 2021-02-11 02:46:00 Johan [facility] VITAMIN B12 AND FOLATE 2021-02-11 02:46:00 Johan [facility] CBC W/PLT COUNT & AUTO 2021-02-11 02:46:00 Autumn Pradoutha [facility] BASIC METABOLIC PANEL (7) 2021-02-11 02:46:00 Johan [facility] MAGNESIUM 2021-02-11 02:46:00 Johan [facility] PHOSPHORUS 2021-02-11 02:46[facility]-REACTIVE PROTEIN 2021-02-11 02:46:00 [facility] DIGOXIN LEVEL 2021-02-11 02:46:00 [place] [facility] XR CHEST 1 VIEW 2021-02-10 22:20:00 [facility] PORTABLE/BEDSIDE [facility] POCT-GLUCOSE METER 2021-02-10 21:28:00 Wilmer Vera [facility] LIPID PANEL 2021-02-10 21:22:00 [facility] CBC W/PLT COUNT & AUTO 2021-02-10 21:21:00 Johan Alison [facility] COMPREHENSIVE METABOLIC 2021-02-10 21:21:[address] [facility] PROTHROMBIN TIME/INR 2021-02-10 21:21:00 [facility] APTT 2021-02-10 21:21:00 Johan [facility] MAGNESIUM 2021-02-10 21:21:00 [facility] PHOSPHORUS 2021-02-10 21:21:00 [facility] HIGH SENSITIVITY TROPONIN 2021-02-10 21:21:00 [facility] B-TYPE NATRIURETIC FACTOR 2021-02-10 21:21:[address] [place] [address] [facility] (BNP) [facility] LACTIC ACID, VENOUS 2021-02-10 21:21:00 [facility] CREATINE KINASE (CK) 2021-02-10 21:21:00 [facility] HEMOGLOBIN A1C 2021-02-10 21:21:00 [facility] ARRYTHMIA IMPLANT REPORT 2021-02-10 00:00:00 Provider, Mino Sharp [facility] - - SCAN Scanning [facility] Plan of Care Planned Activity Planned Date Details Comments Source Future Scheduled 2021-05-[address] [facility] Test 00:00:00 (#1) [code = [facility] INFLUENZA VACCINE (#1)] Future Scheduled 2021-04-25 [facility]ACCINE [facility] 00:00:00 [code = INFLUENZA VACCINE] Future Scheduled 2020-09-[address] [facility] - Test 00:00:00 (12+) [code = [facility] DEPRESSION SCREENING (12+)] Future Scheduled 2002 [facility] 00:[facility]:00 malignant neoplasm of cervix (procedure) [code = 027778710] Future Scheduled [address] [facility] 00:[facility]:00 malignant neoplasm Medical C enter of cervix (procedure) [code = 656640891] Future Scheduled 2000 DTAP/TDAP/TD [facility] - [facility] [code = DTAP/TDAP/TD VACCINES (1 - Tdap)] Future Scheduled [address] [facility] Test 00:00:00 SCREENING [code = Medical Ce nter HEPATITIS C SCREENING] Encounters Start End Encounter Admission Attending Care Care Encounter Source Date/Time Date/Time Type Type Clinicians Facility Department ID 2021-03-30 2021-03-30 Telephone Malena [facility] [id number] 00:00:00 00:00:00 Andreadonnie [place] [id number] [place] [id number] Profameenaio [id number] nal 5 [facility] 2021-03-17 2021-03-18 Outpatient [facility] [id number] [place] 00:00:00 00:00:00 [place]RISTA [address] 2017-09-06 2017-09-08 [facility] [id number] 10:12:00 02:32:00 [facility] Results Test Description Test Time Test Comments Results Result Comments Source ECG 12 lead 2021-03-19 09:56:41 Test Item Value Reference Range Interpretation Comme nts Ventricular rate (test code = 253) 89 Atrial rate (test code = 255) 89 MO interval (test code = 266) 132 QRSD interval (test code = 260) 84 QT interval (test code = 264) 346 QTC interval (test code = 265) 420 P axis 1 (test code = 267) 57 QRS axis 1 (test code = 268) 19 T wave axis (test code = 270) 44 EKG impression (test code = 273) Normal sinus rhythm with sinus arrhythmia-Normal ECG-In automated comparison with ECG of 17-MAR-2021 15:19,-No significant change was found- Beny Perez [id number] 07:41:23 Test Item Value Reference Range Interpretation Comments Urine culture Mixed alok Specimen isolate (test <=10-3 col/cc InformationSp ecimen code = 44218-0) Source: Urin eSpecimen Site: [facility] Echocardi[facility] Complete, (w Contrast, Strain and 3D if needed)2021-03-18 18:04:52 Test Item Value Reference Range Interpretation Comments Ao Root Diameter (test 2.73 cm code = 7302764961) AoV Area, Vmax (test 2.24 cm2 code = 6018090242) AoV Area, VTI (test 2.25 cm2 code = 4019978867) AoV Mean PG (test code 3.66 mmHg = 1182251981) AoV Peak PG (test code 8.44 mmHg = 9008515923) AoV Vmax (test code = 1.46 m/s 1706573692) AoV VTI (test code = 0.28 m 4770714155) IVS,d (test code = 0.72 cm 4058577330) IVS/LVPW,2D (test code 1.11 = 6315535557) Left Atrium Dimension 2.68 cm Anterior (test code = 3901614608) LV,d (test code = 3.69 cm 5936790409) LV EF,2D (test code = 79.68 % 0378276385) LV,s (test code = 2.17 cm 0991372565) LVOT area (test code = 2.75 cm2 9442897603) LVOT Diam,S (test code 1.87 cm = 5621311435) LVOT Vmax (test code = 1.18 m/s 2155141811) LVOT VTI (test code = 0.23 m 2379202026) LVPWD,d (test code = 0.65 cm 4838095630) PV Pk Grad (test code = 2.79 mmHg 2190246016) PV VMAX (test code = 0.84 m/s 3014734900) RVOT Vmax (test code = 0.85 m/s 7234065818) RVSP (TR) (test code = 37.77 mmHg 3136467112) TR Vpeak (test code = 2.86 mm/s 6818525729) MV E A ratio (test code 1.22 = 9288224174) RA pressure (test code 5.00 mmHg = 1706701899) TR pk grad (test code = 33 mmHg 1289761822) MR Vmax (test code = 5.49 m/s 6282143871) E wave decelartion time 232.88 msec (test code = 8843067910) MV Peak A Alf (test 0.76 m/s code = 0953331936) MV valve area p 1/2 3.26 cm2 method (test code = 4012143090) MV Peak E Alf (test 0.92 m/s code = 0621735545) MV stenosis pressure 67.54 ms 1/2 time (test code = 8167353248) LVOT stroke volume 0.63 cm3 (test code = 9651877910) AV LVOT peak gradient 5.58 mmHg (test code = 3961598759) RVSP (test code = 37.77 mmHg 4334978282) Ao Root Diameter (test 2.73 cm code = 1415119001) MV mean gradient (test 2.07 mmHg code = 6696220977) LV SYS VOL (test code = 15.61 ml 7189610612) LV MARTINS VOL (test code 57.63 ml = 1320507158) LA area s A4C (test 11.16 cm2 code = 2265859033) LV SV Teich 2D (test 42.02 ml code = 1806078174) LV Vol s Teich PSAX 15.61 ml (test code = 0484739224) MR peak grad (test code 5.87 mmHg = 5451037292) MV Vmax (test code = 1.21 m 3483025873) MV VTI Tips (test code 0.24 m = 8886220471) RVOT pk grad (test code 2.91 mmHg = 1182193362) AoV Vmn (test code = 0.91 4618677175) LV FS Teich 2D (test 41.21 code = 7347431949) MV AE ratio (test code 0.82 = 3501173967) LV FS Cube 2D (test 41.21 code = 6074274653) LVOT Vmn (test code = 0.70 2160627997) Aov area Vmn (test code 2.13 cm2 = 5125970424) LVOT mean grad (test 2.45 mmHg code = 1282302153) MAX Pred HR (test code 180.23 = 2495908800) 85 of MPHR (test code = 153.19 9571576128) Calc MPHR (test code = 180.23 bpm 6003921839) LV SV Cube 2D (test 39.93 ml code = 8854084819) LV vol d cube 2D (test 50.11 ml code = 3007913408) LV vol s cube 2D (test 10.18 ml code = 4404585768) MV Decel slope (test 3.97 m/s2 code = 8110424321) Pred Exer Dur R1 (test 10.09 code = 6212626164) Pred METS R1 (test code 9.53 = 9977722333) LA Vol MOD A4C (test 24.20 ml code = 2948612719) Velocity Ratio (V1/V2) 0.81 m/s (test code = 4689) EF (test code = 72.91 % 3665682074) E/A ratio (test code = 1.21 7194222667) LVOT VTI (CM) (test 23.00 cm code = 2794607410) SOMMER (test code = SOMMER) Left ventricular systolic function is normal. Left Ventricular ejection fraction is 60 - 65%. Normal left ventricular size with preserved systolic and diastolic function and no regionality. Normal right sided chambers. Mild mitral and tricuspid regurgitation. Normal pulmonary arterial systolic pressures. [facility] [id number] 12:32:37 Test Item Value Reference Range Interpretation Comments POC glucose (test code 207 mg/dL 65-99 H Opera tor Name: = 85767-0) Satya Khoury Device ID: [id number] able: RN Notified Lab Interpretation Abnormal (test code = 90781-7) [place] [facility] IMPL[facility] REPORT - [id number] 20:45:31Ordered by an unspecified provider.[facility] venous lower [id number] 20:17:37 Interface, Radiology Results Incoming - 03/17/2021 8:20 PM CDT EXAMINATION: US DUPLEX VENOUS LOWER EXTREMITY BILATERALCLINICAL HISTORY:Leg deep vein thrombosis (DVT) suspectedCOMPARISON: None.TECHNIQUE: Grayscale, color Doppler, and spectral waveform analysis of the bilateral lower extremity deep venous systems was performed. The bilateral common femoral, superficial femoral, proximal deep femoral, greater saphenous, and popliteal v eins were evaluated. The calf vessels were also evaluated.FINDINGS:The bilateral common femoral, superficial femoral, and popliteal veins are compressible. They demonstrate normal venous waveforms and response to augmentation. There is flow in the visualized calf veins.There is no evidence of a popliteal or Segal's cyst.IMPRESSION:Normal bilateral lower extremity venous Doppler examination. There is no evidence of deep venous thrombosis.[facility]-[id number] MethodistXR Chest 1 Vw [id number] 16:32:52Hm Interface, Radiology Results 03/17/2021 4:35 PM CDT EXAMINATION: XR CHEST 1 VW PORTABLECLINICAL HISTORY: 40 years Female SOBCOMPARISON: None.IMPRESSION:Lines, tubes, and devices: Right-sided transvenous cardiac pacemaker.Heart and mediastinum: Cardiomediastinal silhouette is normal.Lungs and pleura: There is no focal airspace disease, pleural effusion or pneumothorax.Bones/soft tissues: No acute osseous abnormality.[facility]-[id number] and approved by director of radiology/fellow: Cristhian Calixto M.D.I, Jan Scott MD, personally reviewed the images and resident's/fellow's findings and agree with the final report.[place] [facility] ECG ED Preliminary Interpretation - Not an [id number] 15:36:46 Test Item Value Reference Range Interpretation Comments SOMMER (test code = SOMMER) Hector Alvarez III, MD 03/17/2021 11:35 PMEG ED Preliminary Interpretation - Not an OrderPerformed by: Hector Alvarez III, MDAuthorized by: Hector Alvarez III, MD ECG reviewed by ED Physician in the absence of a electric truck operator: yes Interpretation: Interpretation: abnormal Quality: Tracing quality: Limited by artifactRate: ECG rate: 109 ECG rate assessment: tachycardic Rhythm: Rhythm: sinus rhythm and sinus tachycardia Ectopy: Ectopy: none QRS: QRS axis: Normal QRS intervals: NormalConduction: Conduction: normal ST segments: ST segments: Non-specificT waves: T waves: non-specific Lab Interpretation Abnormal (test code = 84628-9) [facility] Metabolic [id number] 07:01:00 Test Item Value Reference Range Interpretation Comments Sodium (test code = 137 meq/L 920-444 0027-2) Potassium (test code = 4.3 meq/L 3.5-5.1 2823-3) Chloride (test code = 104 meq/L 98-107 5-0) CO2 (test code = 24 meq/L -8-9) BUN (test code = 15 mg/dL - 3094-0) Creatinine (test code 0.81 mg/dL 0.57-1.25 = 2160-0) Glucose (test code = 108 mg/dL 70-105 H 2345-7) Calcium (test code = 9.2 mg/dL 8.4-10.2 54184-9) EGFR (test code = 79 mL/min/1.73 sq [place] [facility] [place] [address]-7) NOT ACCURATE CREATININE CLEARANCE IN PREDICTING GLOMERULAR FILTRATION RATE . ESTIMATED GFR I S NOT APPLICABLE FOR DIALYSIS PATIENTS. SOMMER (test code = SOMMER) Freight Sales Broker ID - PIAYA L Lab Interpretation Abnormal (test code = 14017-5) [facility] Hospital[facility]esium2021-[facility]-21 07:01:00 Test Item Value Reference Range Interpretation Comments Magnesium (test code = 2.5 mg/dL 1.6-2.6 14627-9) SOMMER (test code = SOMMER) Freight Sales Broker ID - PIAYA L Lab Interpretation (test Normal code = 15479-9) [facility] HospitalPhosphorus2021-05-21 07:01:00 Test Item Value Reference Range Interpretation Comments Phosphorus (test code = 4.3 mg/dL 2.3-4.7 2777-1) SOMMER (test code = SOMMER) Freight Sales Broker ID - PIAYA L Lab Interpretation (test Normal code = 88446-6) [facility] HospitalBASIC METABOLIC [id number] 07:01:00 Test Item Value Reference Range Interpretation Comments SODIUM (BEAKER) 137 meq/L 136-145 (test code = 381) POTASSIUM (BEAKER) 4.3 meq/L 3.5-5.1 (test code = 379) CHLORIDE (BEAKER) 104 meq/L 98-107 (test code = 382) CO2 (BEAKER) (test 24 meq/L code = 355) BLOOD UREA NITROGEN 15 mg/dL 04-14 (BEAKER) (test code = 354) CREATININE (BEAKER) [...] S NOT APPLICABLE FOR DIALYSIS PATIEN TS. Freight Sales Broker ID - MACHELLE [id number] 07:01:00 Test Item Value Reference Range Interpretation Comments MAGNESIUM (BEAKER) (test code = 2.5 mg/dL 1.6-2.6 627) [employer] Sales Broker ID - MACHELLE [id number] 07:01:00 Test Item Value Reference Range Interpretation Comments PHOSPHORUS (BEAKER) (test code = 4.3 mg/dL 2.3-4.7 604) [employer] Sales Broker ID - MACHELLE LCBC with platelet count + automated [id number] 05:37:00 Test Item Value Reference Range Interpretation Comments WBC (test code = 6690-2) 6.8 See_Comment [A utomated message] The system Glints generated this result transmitted ref erence range: 3.5 - 10 .5 K/L. The refe rence range was not u sed to interpret this result as normal/abnor mal. RBC (test code = 789-8) 5.14 See_Comment [Au tomated message] The system Glints generated this result transmitted ref erence range: 3.93 - 5 .22 M/L. The refe rence range was not u sed to interpret this result as normal/abnor mal. MCHC (test code = 786-4) 31.6 See_Comment L [A utomated message] The system Glints generated this result transmitted ref erence range: [...] See_Comment [Aut omated message] 777-3) The system Glints generated this result transmitted ref erence range: 150 - 45 0 K/CU MM. The referen ce range was not u sed to interpret this result as normal/abnor mal. MPV (test code = 10.0 fL 9.4-12.3 61812-9) nRBC (test code = 413) 0 See_Comment [Aut omated message] The system Glints generated this result transmitted ref erence range: [...] See_Comment [Aut omated message] 670) The system Glints generated this result transmitted ref erence range: 1.56 - 6 .13 K/L. The refe rence range was not u sed to interpret this result as normal/abnor mal. # Lymphs (test code = 2.10 See_Comment [Auto mated message] 414) The system Glints generated this result transmitted ref erence range: 1.18 - 3 .74 K/L. The refe rence range was not u sed to interpret this result as normal/abnor mal. # Monos (test code = 0.48 See_Comment H [Autom ated message] 415) The system Glints generated this result transmitted ref erence range: 0.24 - 0 .36 K/L. The refe rence range was not u sed to interpret this result as normal/abnor mal. # Eos (test code = 416) 0.26 See_Comment [Au tomated message] The system Glints generated this result transmitted ref erence range: 0.04 - 0 .36 K/L. The refe rence range was not u sed to interpret this result as normal/abnor mal. # Baso (test code = 417) 0.04 See_Comment [A utomated message] The system Glints generated this result transmitted ref erence range: 0.01 - 0 .08 K/L. The refe rence range was not u sed to interpret this result as normal/abnor mal. Immature 1 % 0-1 Granulocytes-Relative (test code = 2801) Lab Interpretation (test Abnormal code = 40583-3) [facility] W/PLT COUNT & AUTO [id number] 05:37:00 Test Item Value Reference Range Interpretation [...] code = 2801) MR, MRA, BRAIN, WITHOUT [id number] 16:54:00Reason for exam:->Ischemic Stroke EvaluationEL [facility] : 1980 Sex: FFINAL REPORT MR, BRAIN, WITHOUT CONTRAST, MR, MRA, BRAIN, WITHOUT CONTRAST, MR, MRA, NECK, WITHOUT IV CONTRAST INDICATION: Stroke, follow upIschemic Stroke Evaluation TECHNIQUE: Multiplanar, multisequence MR imaging of the brain without intravenous contrast.MRA of the head utilizing 3-D pdqd-jo-irpwsw technique, with 3-D reconstructions.MRA of the neck utilizing 2-D and 3-D uxet-sp-ppbtmi technique, with 3-D reconstructions. COMPARISON: MRI and MRA 08/21/2018 FINDINGS: MRI Brain:Intracranial: Exam is degraded by motion. No intracranial hemorrhage. No restricted diffusion to suggest acute infarct. No mass effect. No hydrocephalus. Sinuses: Mild mucosal thickening in the right maxillary sinus. Mastoids are clear. Orbits: Globes are intact. Calvarium \\T\\ scalp: Unremarkable. MRA Head:There is no evidence of intracranial aneurysm, focal stenosis, or major branch vessel occlusion. MRA Neck:The carotid arteries in the neck are patent including their bifurcations. There is antegrade flow in the vertebral arteries in the neck. IMPRESSION:No acute intracranial ab normality. No proximal branch arterial occlusion or high-grade focal stenosis within the head and neck. Signed: Lakshmi Amadoreport Verified Date/Time: 02/11/2021 16:54:16 MR, MRA, NECK, WITHOUT IV [id number] 16:54:00Reason for exam:->Ischemic Stroke Evaluation [facility] : 1980 Sex: FFINAL REPORT MR, BRAIN, WITHOUT CONTRAST, MR, MRA, BRAIN, WITHOUT CONTRAST, MR, MRA, NECK, WITHOUT IV CONTRAST INDICATION: Stroke, follow upIschemic Stroke Evaluation TECHNIQUE: Multiplanar, multisequence MR imaging of the brain without intravenous contrast.MRA of the head utilizing 3-D ioza-de-grdazr technique, with 3-D reconstructions.MRA of the neck utilizing 2-D and 3-D ybuk-cx-okxdbm technique, with 3-D reconstructions. COMPARISON: MRI and MRA 08/21/2018 FINDINGS: MRI Brain:Intracranial: Exam is degraded by motion. No intracranial hemorrhage. No restricted diffusion to suggest acute infarct. No mass effect. No hydrocephalus. Sinuses: Mild mucosal thickening in the right maxillary sinus. Mastoids are clear. Orbits: Globes are intact. Calvarium \\T\\ scalp: Unremarkable. MRA Head:There is no evidence [...] Verified Date/Time: 02/11/2021 16:54:16 MR, BRAIN, WITHOUT [id number] 16:54:00Reason for exam:->Ischemic Stroke Evaluation [facility] : 1980 Sex: FFINAL REPORT MR, BRAIN, WITHOUT CONTRAST, MR, MRA, BRAIN, WITHOUT CONTRAST, MR, MRA, NECK, WITHOUT IV CONTRAST INDICATION: Stroke, follow upIschemic Stroke Evaluation TECHNIQUE: Multiplanar, multisequence MR imaging of the brain without intravenous contrast.MRA of the head utilizing 3-D iopk-ng-yabhvu technique, with 3-D reconstructions.MRA of the neck utilizing 2-D and 3-D dazb-tt-ovkzkk technique, with 3-D reconstructions. COMPARISON: MRI and MRA 08/21/2018 FINDINGS: MRI Brain:Intracranial: Exam is degraded by motion. No intracranial hemorrhage. No restricted diffusion to suggest acute infarct. No mass effect. No hydrocephalus. Sinuses: Mild mucosal thickening in the right maxillary sinus. Mastoids are clear. Orbits: Globes are intact. Calvarium \\T\\ scalp: Unremarkable. MRA Head:There is no evidence [...] Signed: Lakshmi Amador Verified Date/Time: 02/11/2021 16:54:16 MR brain without IV [id number] 16:54:00Interface, External Ris In - 02/11/2021 4:56 PM CDTFINAL REPORT MR, BRAIN, WITHOUT CONTRAST, MR, MRA, BRAIN, WITHOUT CONTRAST, MR, MRA, NECK, WITHOUT IV CONTRAST INDICATION: Stroke, follow upIschemic Stroke Evaluation TECHNIQUE: Multiplanar, multisequence MR imaging of the brain without intravenous contrast.MRA of the head utilizing 3-D fwkq-ti-vsantq technique, with 3-D reconstructions.MRA of the neck utilizing 2-D and 3-D ucbw-qp-hbdycc technique, with 3-D reconstructions. COMPARISON: MRI and MRA 08/21/2018 FINDINGS: MRI Brain:Intracranial: Exam is degraded by motion. No intracranial hemorrhage. No restricted diffusion to suggest acute infarct. No mass effect. No hydrocephalus. Sinuses: Mild mucosal thickening in the right maxillary sinus. Mastoids are clear. Orbits: Globes are intact. Calvarium \\T\\ scalp: Unremarkable. MRA Head:There is no evidence [...] Signed: Lakshmi Amador Verified Date/Time: 02/11/2021 16:54:16 [facility] IV [id number] 16:54:00Interface, External Ris In - 02/11/2021 4:56 PM CDTFINAL REPORT MR, BRAIN, WITHOUT CONTRAST, MR, MRA, BRAIN, WITHOUT CONTRAST, MR, MRA, NECK, WITHOUT IV CONTRAST INDICATION: Stroke, follow upIschemic Stroke Evaluation TECHNIQUE: Multiplanar, multisequence MR imaging of the brain without intravenous contrast.MRA of the head utilizing 3-D hyvn-cv-mkftpq technique, with 3-D reconstructions.MRA of the neck utilizing 2-D and 3-D joai-hl-cwopvl technique, with 3-D reconstructions. COMPARISON: MRI and MRA 08/21/2018 FINDINGS: MRI Brain:Intracranial: Exam is degraded by motion. No intracranial hemorrhage. No restricted diffusion to suggest acute infarct. No mass effect. No hydrocephalus. Sinuses: Mild mucosal thickening in the right maxillary sinus. Mastoids are clear. Orbits: Globes are intact. Calvarium \\T\\ scalp: Unremarkable. MRA Head:There is no evidence of intracranial aneurysm, focal stenosis, or major branch vessel occlusion. MRA Neck:The carotid arteries in the neck are patent including their bifurcations. There is antegrade flow in the vertebral arteries in the neck. IMPRESSION:No acute intracranial abnormality. No proximal branch arterial occlusion or high-grade focal stenosis within the head and neck. Signed: [facility]shmi [facility] Verified Date/Time: 02/11/2021 16:54:16 [facility] without IV [id number] 16:54:00Interface, External Ris In - 02/11/2021 4:56 PM CDTFINAL REPORT MR, BRAIN, WITHOUT CONTRAST, MR, MRA, BRAIN, WITHOUT CONTRAST, MR, MRA, NECK, WITHOUT IV CONTRAST INDICATION: Stroke, follow upIschemic Stroke Evaluation TECHNIQUE: Multiplanar, multisequence MR imaging of the brain without intravenous contrast.MRA of the head utilizing 3-D oyee-od-tmfcmp technique, with 3-D reconstructions.MRA of the neck utilizing 2-D and 3-D jlfj-zv-vbhlgg technique, with 3-D reconstructions. COMPARISON: MRI and MRA 08/21/2018 FINDINGS: MRI Brain:Intracranial: Exam is degraded by motion. No intracranial hemorrhage. No restricted diffusion to suggest acute infarct. No mass effect. No hydrocephalus. Sinuses: Mild mucosal thickening in the right maxillary sinus. Mastoids are clear. Orbits: Globes are intact. Calvarium \\T\\ scalp: Unremarkable. MRA Head:There is no evidence [...] Signed: Lakshmi Amador Verified Date/Time: 02/11/2021 16:54:16 [facility]21-[facility] 14:02:00 Test Item Value Reference Range Interpretation Comments RPR (test code = 06047-4) Nonreactive Nonreactive Lab Interpretation (test code = Normal 23484-4) [facility] 14:02:00 Test Item Value Reference Range Interpretation Comments RPR SCREEN (BEAKER) (test code = Nonreactive Nonreactive 420) Hemoglobin [id number] 09:35:00 Test Item Value Reference Range Interpretation Comments Hemoglobin A1C (test code = 4548-4) 6.0 % 4.3-6.1 Lab Interpretation (test code = Normal 07144-9) [facility] HospitalHEMOGLOBIN [id number] 09:35:00 Test Item Value Reference Range Interpretation Comments HEMOGLOBIN A1C (BEAKER) (test code = 6.0 % 4.3-6.1 368) Rapid drug screen, [id number] 07:26:00 Test Item Value Reference Range Interpretation Comments Barbiturate Screen Negative Negative (test code = 34624-3) Benzodiazepine Screen Negative Negative (test code = 39224-2) Cocaine (Metab.) Negative Negative Screen (test code = 3397-7) Methadone Screen (test Negative Negative code = 27730-8) Opiate Screen (test Negative Negative code = 50542-9) Cannabinoid Screen Negative Negative (test code = 79013-6) Amph/Methamph Screen Negative Negative (test code = 51771-2) Phencyclidine Screen Negative Negative (test code = 35992-2) pH, UA (test code = 6.5 5.0-8.0 5803-2) SOMMER (test code = SOMMER) DRUG CUTOFF CONC.Cocaine 300 ng/mL Cannabinoid 50 ng/mLBenzodiazepine 200 ng/mLBarbiturate 200 ng/mLPhencyclidine 25 ng/mLOpiate 300 ng/mLMethadone 300 ng/mLAmphetamine/ 1000 ng/mL Methamphetamine This assay provides an unconfirmed qualitative test result for the clinical management of patients in emergency situations. Chain of custody not maintained. Some bkhs-aut-owducqq medications, as well as adulterants, may cause inaccurate results. Clinical correlation should be applied. A more comprehensive drug screen or confirmation of a detected drug may be performed upon request.Freight Sales Broker ID - VIET M Lab Interpretation Normal (test code = 94170-9) [facility] Hospital[facility] S[facility]EN, [id number] 07:26:00 Test Item Value Reference Range Interpretation [...] situations. Chain of custody not maintained. Some yiub-iur-euufgmt medications, as well as adulterants, may cause inaccurate results. Clinical correlation should be applied. A more comprehensivedrug screen or confirmation of a detected drug may be performed upon request.Freight Sales Broker ID - VIET MUrinalysis with Microscopic If [id number] 07:11:00 Test Item Value Reference Range Interpretation Comments Color, UA (test code = Light Yellow 5778-6) Clarity, UA (test code = Clear 5767-9) Specific [place], UA (test 1.012 1.001-1.035 code = 5811-5) pH, UA (test code = 6.5 5.0-8.0 5803-2) Protein, UA (test code = Negative Negative 09788-0) Glucose, UA (test code = Negative Negative 365) Ketones, UA (test code = Negative Negative 2514-8) Bilirubin, UA (test code = Negative Negative 41868-4) Blood, UA (test code = Small Negative A 03575-8) Nitrite, UA (test code = Negative Negative 5802-4) Leukocytes, UA (test code Small Negative A = 5799-2) Urobilinogen, UA (test 0.2 mg/dL 0.2-1 code = 33834-9) Specimen Source (test code = 2795) SOMMER (test code = SOMMER) Freight Sales Broker ID - [auto]Freight Sales Broker ID - tech Lab Interpretation (test Abnormal code = 39313-1) [facility] HospitalUrinalysis Microscopic [id number] 07:11:00 Test Item Value Reference Range Interpretation Comments RBC, UA (test 11 See_Comment [Automated me ssage] code = 72094-6) The system [facility] generated this result transmitted ref erence range: /HPF. Th e reference range was not used to int erpret this result as normal/abnormal . WBC, UA (test 11 See_Comment [Automated me ssage] code = 5821-4) The system [facility] generated this result transmitted ref erence range: /HPF. Th e reference range was not used to int erpret this result as normal/abnormal . Mucus (test Rare code = 8247-9) Squam Epithel, 3 See_Comment [Automated m essage] UA (test code = The system [facility] 22766-3) generated this result transmitted ref erence range: /HPF. Th e reference range was not used to int erpret this result as normal/abnormal . SOMMER (test code Freight Sales Broker ID - tech = SOMMER) [facility] HospitalURINALYSIS WITH MICROSCOPIC IF [id number] 07:11:00 Test Item Value Reference Range Interpretation [...] = 463) SOURCE(BEAKER) (test code = 2795) Freight Sales Broker ID - [auto]Freight Sales Broker ID - techURINALYSIS [id number] 07:11:00 Test Item Value Reference Range Interpretation Comments RBC UA (BEAKER) (test code = 519) 11 /HPF WBC UA (BEAKER) (test code = 520) 11 /HPF MUCUS (BEAKER) (test code = 1574) Rare SQUAMOUS EPITHELIAL (BEAKER) (test 3 /HPF code = 516) Freight Sales Broker ID - malcomDigoxin [id number] 06:22:00 Test Item Value Reference Range Interpretation Comments Digoxin Lvl (test code = <0.30 0.8-2 L 08613-1) SOMMER (test code = SOMMER) Freight Sales Broker ID - MACHELLE L Lab Interpretation (test Abnormal code = 34547-5) [facility] HospitalDIGOXIN [id number] 06:22:00 Test Item Value Reference Range Interpretation Comments DIGOXIN LEVEL (BEAKER) (test code = < ng/mL 0.80-2.00 L 669) Freight Sales Broker ID - MACHELLE SNybppynfwcos2427-90-87 05:58:00 Test Item Value Reference Range Interpretation Comments Homocysteine (test code = 7.3 umol/L 5.1-15.4 29383-4) SOMMER (test code = SOMMER) Freight Sales Broker ID - MACHELLE L Lab Interpretation (test Normal code = 07827-8) [facility] HospitalTSH/Free T4 If [id number] 05:58:00 Test Item Value Reference Range Interpretation Comments TSH (test code = 4.368 See_Comment [Automated 81194-9) message] The system which generated this result transmit aida reference range : 0.350 - 4.940 uIU/mL. The reference range was not used to interpret this result as normal/abnormal . SOMMER (test code = SOMMER) Freight Sales Broker ID - MACHELLE L Lab Interpretation Normal (test code = 36232-9) [facility] HospitalVitamin B12 and [id number] 05:58:00 Test Item Value Reference Range Interpretation Comments Vitamin B12 (test 557 pg/mL 213-816 code = 2132-9) Folate (test code = 11.20 ng/mL See_Comment [Automa aida 2284-8) message] The system which generated this result transmit aida reference range : >=7.00. The reference range was not used to interpret this result as normal/abnormal . SOMMER (test code = SOMMER) Freight Sales Broker ID - MACHELLE L Lab Interpretation Normal (test code = 86949-1) [facility] HospitalHOMOCYSTEINE2021-05-20 05:58:00 Test Item Value Reference Range Interpretation Comments HOMOCYSTEINE (BEAKER) (test code = 7.3 umol/L 5.1-15.4 642) Freight Sales Broker ID - MACHELLE LTSH/FREE T4 IF [id number] 05:58:00 Test Item Value Reference Range Interpretation Comments THYROID STIMULATING HORMONE 4.368 uIU/mL 0.350-4.940 (BEAKER) (test code = 772) Freight Sales Broker ID - MACHELLE LVITAMIN B12 AND [id number] 05:58:00 Test Item Value Reference Range Interpretation Comments VITAMIN B12 557 pg/mL 213-816 (BEAKER) (test code = 774) FOLATE (BEAKER) 11.20 ng/mL See_Comment [Automated message] (test code = 362) The system which generated this result transmitted ref erence range: >=7.00. The reference range was not used to interpr et this result as normal/abnormal . Freight Sales Broker ID Jodie CARTY LC-Reactive Sptqqzs4861-35-45 04:54:00 Test Item Value Reference Range Interpretation Comments CRP (test code = 676) 0.81 mg/dL 0-0.5 H SOMMER (test code = SOMMER) Freight Sales Broker ID - MACHELLE L Lab Interpretation (test Abnormal code = 97930-0) [facility] HospitalMAGNESIUM2021-05-20 04:54:00 Test Item Value Reference Range Interpretation Comments MAGNESIUM (BEAKER) 2.1 mg/dL 1.6-2.6 Specimen slightly (test code = 627) hemolyzed Freight Sales Broker ID - MACHELLE [id number] 04:54:00 Test Item Value Reference Range Interpretation Comments PHOSPHORUS (BEAKER) 4.3 mg/dL 2.3-4.7 Specimen slightly (test code = 604) hemolyzed Freight Sales Broker ID - MACHELLE LBASIC METABOLIC [id number] 04:54:00 Test Item Value Reference Range Interpretation [...] S NOT APPLICABLE FOR DIALYSIS PATIEN TS. Freight Sales Broker ID - MACHELLE LC-REACTIVE [id number] 04:54:00 Test Item Value Reference Range Interpretation Comments C-REACTIVE PROTEIN (BEAKER) (test 0.81 mg/dL 0.00-0.50 H code = 676) Freight Sales Broker ID - MACHELLE LCBC W/PLT COUNT & AUTO [id number] 02:54:00 Test Item Value Reference Range Interpretation [...] = 2801) RAD, CHEST, 1 VIEW, NON [id number] 22:40:00Reason for exam:->strokeShould this be performed at the bedside?->Yes [facility] : 1980 Sex: [...] Nieves Verified Date/Time: 02/10/2021 22:40:02 Reading Location: [address] Transitional Reading Room XR chest 1 view portable / [id number] 22:40:00Interface, External Ris In - 02/10/2021 10:42 [...] Nieves Verified Date/Time: 02/10/2021 22:40:02 Reading Location: [address] Transitional Reading Room [facility] W/PLT COUNT & AUTO [id number] 22:16:00 Test Item Value Reference Range Interpretation [...] Range Interpretation Comments BNP (test code = 00278-7) <10 0-100 SOMMER (test code = SOMMER) Freight Sales Broker ID - BS Lab Interpretation (test Normal code = 12150-2) [facility] HospitalB-TYPE NATRIURETIC FACTOR (BNP)2021-02-10 22:04:00 Test Item Value Reference Range Interpretation Comments B-TYPE NATRIURETIC PEPTIDE (BEAKER) < pg/mL 0-100 (test code = 700) Freight Sales Broker ID - BSHigh Sensitivity Troponin I ([facility]/[place] Only)2021-02-10 21:57:00 Test Item Value Reference Range Interpretation Comments Troponin I HS <4 See_Comment [Automated (test code = message] The 96976-7) system which generated this result transmitted reference range : <=17 pg/ml. The reference range was not used to interpret this result as normal/abnormal . SOMMER (test code = Freight Sales Broker ID - SOMMER) BSThe INSPECTOR BARREL STAT High Sensitivity Troponin-I results should be used in conjunction with other diagnostic information such as ECG, clinical observations and information, and patient symptoms to aid in the diagnosis of NH. Lab Interpretation Normal (test code = 14297-5) [facility] HospitalHIGH SENSITIVITY TROPONIN [id number] 21:57:00 Test Item Value Reference Range Interpretation Comments HIGH SENSITIVITY < pg/ml See_Comment [Automated message] TROPONIN I (test code = The system which 1324320) generated this result transmitted ref erence range: <=17. Th e reference range was not used to interpr et this result as normal/abnormal . Freight Sales Broker ID - BSThe INSPECTOR BARREL STAT High Sensitivity Troponin-I results should be used in conjunctionwith other diagnostic information such as ECG, clinical observations and information, and patient symptoms to aid in the diagnosis of NH.Lipid [id number] 21:54:00 Test Item Value Reference Range Interpretation Comments Triglycerides (test 171 mg/dL Specimen code = 2571-8) markedly hemolyzed Cholesterol (test 218 mg/dL Specimen code = 2093-3) markedly hemolyzed HDL (test code = 47 mg/dL 2084-9) LDL Calculated (test 137 mg/dL code = 83792-7) SOMMER (test code = Triglyceride SOMMER) Reference Range: Low Risk <150 Borderline 150-199 High Risk 200-499 Very High Risk >=500 Cholesterol Reference Range: Low Risk <200 Borderline 200-239 High Risk >240 HDL Cholesterol Reference Range: Low Risk >=60 High Risk <40 LDL Cholesterol Reference Range: Optimal <100 Near Optimal 100-129 Borderline 130-159 High 160-189 Very High >=190 Freight Sales Broker ID - BS [facility] HospitalLIPID [id number] 21:54:00 Test Item Value Reference Range Interpretation [...] Borderline 130-159 High 160-189 Very High >=190 Freight Sales Broker ID - BSComprehensive metabolic [id number] 21:52:00 Test Item Value Reference Range Interpretation Comments Protein, Total 8.0 See_Comment Specimen slig htly (test code = hemolyzed 2885-2) [Automated message] The system which generated this result transmit aida reference range : 6.0 - 8.3 gm/dL . The reference range was not u sed to interpret th is result as normal/abnormal . Albumin (test code 4.2 g/dL 3.5-5 Specimen slightly = 76151-3) hemolyzed Alkaline 135 U/L 40-150 Phosphatase (test code = 6768-6) Total Bilirubin 0.2 mg/dL 0.2-1.2 Specimen sli ghtly (test code = hemolyzed 1974-) Sodium (test code = 139 meq/L 433-973 9912-2) Potassium (test 4.5 meq/L 3.5-5.1 Specimen sli ghtly code = 2823-3) hemolyzed Chloride (test code 103 meq/L 98-107 = 2075-0) CO2 (test code = 25 meq/L -29 2027-) BUN (test code = 9 mg/dL 7-21 3094-0) Creatinine (test 0.78 mg/dL 0.57-1.25 Specimen sl ightly code = 2160-0) hemolyzed Glucose (test code 105 mg/dL 70-105 = 2345-7) Calcium (test code 9.6 mg/dL 8.4-10.2 = 72809-8) AST (test code = 28 U/L 5-34 Specimen sl ightly 1920-8) hemolyzed ALT (test code = 52 U/L 6-55 Specimen sl ightly 1742-6) hemolyzed EGFR (test code = 82 mL/min/1.73 [place] [address]-1) NOT ACCURATE CREATININE CLEARANCE IN PREDICTING GLOMERULAR FILTRATION RATE . ESTIMATED GFR I S NOT APPLICABLE FOR DIALYSIS PATIEN TS. SOMMER (test code = Freight Sales Broker ID - BS SOMMER) [facility] HospitalCreatine Kinase (CK)2021-02-10 21:52:00 Test Item Value Reference Range Interpretation Comments Total CK (test code = 70 U/L 29-200 7-6) SOMMER (test code = SOMMER) Freight Sales Broker ID - BS Lab Interpretation (test Normal code = 85981-2) [facility] HospitalMAGNESIUM2021-05-19 21:52:00 Test Item Value Reference Range Interpretation Comments MAGNESIUM (BEAKER) 2.2 mg/dL 1.6-2.6 Specimen slightly (test code = 627) hemolyzed Freight Sales Broker ID - [id number] 21:52:00 Test Item Value Reference Range Interpretation Comments PHOSPHORUS (BEAKER) 4.4 mg/dL 2.3-4.7 Specimen slightly (test code = 604) hemolyzed Freight Sales Broker ID - BSCOMPREHENSIVE METABOLIC [id number] 21:52:00 Test Item Value Reference Range Interpretation [...] hemolyzed EGFR (BEAKER) (test 82 mL/min/1.73 ESTIMA AIAD GFR IS code = 1092) sq m NOT ACCURATE CREATININE CLEARANCE IN PREDICTING GLOMERULAR FILTRATION RATE . ESTIMATED GFR I S NOT APPLICABLE FOR DIALYSIS PATIEN TS. Freight Sales Broker ID - BSCREATINE KINASE (CK)2021-02-10 21:52:00 Test Item Value Reference Range Interpretation Comments CREATINE KINASE TOTAL (BEAKER) (test 70 U/L 29-200 code = 380) Freight Sales Broker ID - [id number] 21:46:00 Test Item Value Reference Range Interpretation Comments PTT (test code = 72991-9) 30.5 See_Comment [ Automated message] The system whic h generated this result transmitted ref erence range: 22.5 - 3 6.0 seconds. The re ference range was not u sed to interpret this result as normal/abnor mal. Lab Interpretation (test Normal code = 02576-8) [facility] HospitalLactic acid, [id number] 21:46:00 Test Item Value Reference Range Interpretation Comments Lactate, Venous (test 1.96 mmol/L 0.5-2.2 Specim en code = 2872) markedly hemolyzed SOMMER (test code = SOMMER) Freight Sales Broker ID - BS Lab Interpretation Normal (test code = 46385-9) [facility] HospitalAPTT2021-05-19 21:46:00 Test Item Value Reference Range Interpretation Comments PARTIAL THROMBOPLASTIN TIME 30.5 seconds 22.5-36.0 (BEAKER) (test code = 760) LACTIC ACID, [id number] 21:46:00 Test Item Value Reference Range Interpretation Comments LACTATE BLOOD VENOUS 1.96 mmol/L 0.50-2.20 Specime n markedly (2) ([facility]) (test hemolyzed code = 2872) Freight Sales Broker ID - BSProthrombin time/[id number] 21:45:00 Test Item Value Reference Interpretation Comments Range Protime (test code = 12.7 See_Comment [Autom ated 7552-2) message] The system which generated this result transmitted reference range : 11.9 - 14.2 seconds. The reference range was not used to interpret this result as normal/abnormal . INR (test code = 0.98 See_Comment [Automated 3531-6) message] The system which generated this result [...] valves. Lab Interpretation Normal (test code = 57446-7) [facility] HospitalPROTHROMBIN TIME/[id number] 21:45:00 Test Item Value Reference Range Interpretation Comments PROTIME (BEAKER) 12.7 seconds 11.9-14.2 (test code = 759) INR (BEAKER) (test 0.98 See_Comment [Automat ed message] code = 370) The system [employer] generated this result transmitted ref erence range: <=5.90. The reference range was not used to int erpret this result as normal/abnormal . RECOMMENDED COUMADIN/WARFARIN INR THERAPY RANGESSTANDARD DOSE: 2.0 - 3.0 Includes: PROPHYLAXIS forvenous thrombosis, systemic embolization; TREATMENT for venous thrombosis and/or pulmonary embolus.HIGH RISK: Target INR is 2.5-3.5 for patients with mechanical heart valves.POC-Glucose [id number] 21:39:00 Test Item Value Reference Range Interpretation Comments POC-Glucose Meter (test 93 mg/dL 70-110 : TE STED AT [facility] code = 1538) [address] [place], [address]: Freight Sales Broker/Techni rhonda ID = [id number] for AILYN JAVIER A Lab Interpretation (test Normal code = 38570-6) [facility] HospitalPOCT-GLUCOSE [id number] 21:39:00 Test Item Value Reference Range Interpretation Comments POC-GLUCOSE METER 93 mg/dL 70-110 : TESTED A T [facility] 6720 (BEAKER) (test code = AYLIN Rivera [facility], 1538) [address]: Freight Sales Broker/Techni rhonda ID = [id number] for GERTRUDE SHAY [id number] 15:45:00 Test Item Value Reference Range Interpretation Comments SURG (test code = SURG) RUN DATE: 09/30/20 [facility] PAGE 1 RUN TIME: 1545 Specimen Inquiry RUN USER: INTERFACE PATIENT: ADAM MARSH LOC: [place] U #: [id number] AGE/SX: 40/F ROOM: RE09/29/20REG DR: Linus Boone MD : 82 BED: DIS: STATUS: DEP [facility] TLOC: SPEC #: [id number] RECD: 09/29/20 STATUS: MACIEL DEY #: [id number] WU: 09/29/[address]: Linus Boone MD ENTERED: 09/29/20 SP TYPE: SURG OTHR DR: Undefined Provider ORDERED: SURG PATH LVL 4 COPIES TO: Linus Boone MD [address] [place] [address] [id number] Undefined Provider HISTOLOGY: TISSUE ID BLK PCS DHIRAJ LEV PROCEDURE DISPOSITION ____ ___ ___ ___ STOMACH, NOS A 1 2 PROCEDURES: SURG PATH LVL 4 (09/29/20-1244) TISSUES: A. STOMACH, NOS - GASTRIC BIOPSY CLINICAL HISTORY R10.13, K21.9, K92.0, R14.0, R11.2, R19.7, R19.4 CPT CODES CPT CODE(S): 29617 , , , , , , FINAL DIAGNOSIS Stomach, biopsy: MILD CHRONIC GASTRITIS NEGATIVE FOR INTESTINAL METAPLASIA, DYSPLASIA, OR MALIGNANCY NEGATIVE FOR HELICOBACTER PYLORI ORGANISMS GROSS DESCRIPTION Gastric biopsy. Received in formalin are two wilkinson tissue fragments, 0.4 cm each, all as A. bk/nr Grossing performed at [facility] Pathology, [address] [place] [address], [address], [place] [address]. Hydrographical Technical Officer: Aditya Hanson M.D. CONTINUED ON NEXT PAGE RUN DATE: 09/30/20 [facility] PAGE 2 RUN TIME: 1545 Specimen Inquiry RUN USER: INTERFACE SPEC #: [id number] PATIENT: ADAM MARSH #[id number] (Continued) MICROSCOPIC DESCRIPTION Gastric biopsy. Sections demonstrate gastric mucosa with mild chronic inflammation. No dysplasia or malignancy is identified. No evidence of Helicobacter pylori organisms or intestinal metaplasia is seen. Signed SIGNATURE ON FILE Hector Issa 09/30/20 1545 END OF REPORT COVID 19 INHOUSE [id number] 13:41:00 Test Item Value Reference Range Interpretation Comments COVID 19 INHOUSE AG NEGATIVE Negative Per manu facturer, (test code = negative result s should [id number]) be treated aspr esumptive and, if inconsi [...] symptoms co nsistent with COVID-19. BASIC METABOLIC [id number] 13:40:00 Test Item Value Reference Range Interpretation [...] MG/DL 8.5-10.1 N - XR CHEST 1 [id number] 13:33:00 [facility] : 1980 Sex: F Name: ADAM MARSH [facility] : [birth year] Age/S: 40 / F [address] [facility] [place] Unit #: [id number] Loc: [place] [address] Phys: Linus Boone MD Acct: [id number] Dis Date: Status: PRE [facility] PHONE #: [phone] Exam Date: 09/28/2020 1326 FAX #: Reason: PREOP EXAMS: CPT: [id number] XR CHEST 1 V 27584 Fluoro Time: DAP (Gy m2): Air Kerma [...] PAGE 1 Signed Report Name: ADAM MARSH [place] : 1980 Age/S: 40 / F [address] [place] [address] Unit #: [id number] Loc: [place] [address] Phys: Linus Boone MD Acct: [id number] Dis Date: Status: PRE SDC PHONE #: [phone] Exam Date: 09/28/2020 1326 FAX #: Reason: PREOP EXAMS: CPT: [id number] XR CHEST 1 V 72776 Fluoro Time: DAP (Gy m2): Air Kerma (mGy): <Continued> Technologist: Shari Davila RT(R)(CT) Trnscb Date/Time: 09/28/2020 (5323) 16 Orig Print D/T: S: 09/28/2020 (2900) PAGE 2 SignedReportPROTHROMBIN [id number] 13:29:00 Test Item Value Reference Range Interpretation Comments PT PATIENT (test code = PTP) 10.6 SECONDS 9.3-12.9 N INTERNATIONAL NORMAL RATIO 0.95 INR Unit 0.8-1.2 N (test code = INR) THROMBOPLASTIN TIME [id number] 13:29:00 Test Item Value Reference Range Interpretation Comments THROMBOPLASTIN TIME PARTIAL 28.0 SECONDS 26-35 N (test code = PTT) CBC W/AUTO [id number] 13:26:00 Test Item Value Reference Range Interpretation [...] code NO DIFF/SCN CRITERIA = MDIFF) POCT-GLUCOSE [id number] 10:22:00 Test Item Value Reference Range Interpretation Comments POC-GLUCOSE METER 102 mg/dL 70-110 TESTED AT [facility] 67[address] (ARNOL) (test code = [place] 1488) [address] MR, MRA, BRAIN, WITHOUT [id number] 09:32:00Reason for exam:->Ischemic Stroke EvaluationFINAL REPORT MRA Head CLINICAL HISTORY: Ischemic Stroke TECHNIQUE: MRA of the head utilizing 3-D ldpj-lt-zfkhze technique, with 3-D reconstructions. COMPARISON: None FINDINGS: There is no evidence of intracranial aneurysm, focal stenosis, or major branch vessel occlusion. IMPRESSION: No evidence for a major qawalangin of Mendes proximal branch vessel occlusion. MRA Neck CLINICAL HISTORY: Ischemic Stroke TECHNIQUE: MRA of the neck utilizing 2-D and 3-D llnm-ht-vdhlbw technique, with 3-D reconstructions. COMPARISON: None FINDINGS: The carotid arteries in the neck are patent including their bifurcations. There is antegrade flow in the vertebral arteries in the neck. IMPRESSION: No evidence of hemodynamically significant stenosis in the cervical carotid or vertebral arteries by NASCET criteria. Signed: Santos Winn Verified Date/Time: 08/21/2018 09:32:09 Reading Location: [facility] C013 Neuro Reading Room MR, MRA, NECK, WITHOUT IV [id number] 09:32:00Reason for exam:->Ischemic Stroke EvaluationFINAL REPORT MRA Head CLINICAL HISTORY: Ischemic Stroke TECHNIQUE: MRA of the head utilizing 3-D qddm-cd-onlxbp technique, with 3-D reconstructions. COMPARISON: None FINDINGS: There is no evidence of intracranial aneurysm, focal stenosis, or major branch vessel occlusion. IMPRESSION: No evidence for a major qawalangin of Mendes proximal branch vessel occlusion. MRA Neck CLINICAL HISTORY: Ischemic Stroke TECHNIQUE: MRA of the neck utilizing 2-D and 3-D ibig-nk-yvbzbc technique, with 3-D reconstructions. COMPARISON: None FINDINGS: The carotid arteries in the neck are patent including their bifurcations. There is antegrade flow in the vertebral arteries in the neck. IMPRESSION: No evidence of hemodynamically significant stenosis in the cervical carotid or vertebral arteries by NASCET criteria. Signed: Santos Winn Verified Date/Time: 08/21/2018 09:32:09 Reading Location: [facility] B1 C013V Neuro Reading Room MR, BRAIN, WITHOUT [id number] 09:25:00Reason for exam:- >Ischemic Stroke EvaluationFINAL REPORT [...] Acute on chronic pansinusitis. Signed: Santos Winn [facility] Verified Date/Time: 08/21/2018 09:25:25 Reading Location: [facility] C013V Neuro R eading Room POCT-GLUCOSE [id number] 21:26:00 Test Item Value Reference Range Interpretation Comments POC-GLUCOSE METER 119 mg/dL 70-110 H TESTED AT [place] [address] ([facility]) (test code = AYLIN Rivera [facility] 1538) [address] POCT-GLUCOSE [id number] 18:03:00 Test Item Value Reference Range Interpretation Comments POC-GLUCOSE METER 119 mg/dL 70-110 H TESTED AT [place] [address] ([facility]) (test code = AYLIN Rivera [place] 1538) [address] POCT-GLUCOSE [id number] 12:39:00 Test Item Value Reference Range Interpretation Comments POC-GLUCOSE METER 120 mg/dL 70-110 H TESTED AT [place] [address] ([facility]) (test code = AYLIN Rivera [place] 1538) [address] RAD, CHEST, 1 VIEW, NON [id number] 12:04:00Reason for exam:->To Locate Heart Device (Pacemaker)Should [...] Location: [facility] Radiology Reading Room POCT-GLUCOSE [id number] 09:17:00 Test Item Value Reference Range Interpretation Comments POC-GLUCOSE METER 121 mg/dL 70-110 H TESTED AT [facility] 6720 (BEAKER) (test code = A[place] 1538) [address] BASIC METABOLIC [id number] 06:56:00 Test Item Value Reference Range Interpretation [...] NOT APPLICABLE FOR DIALYSIS PATIEN TS. POCT-GLUCOSE [id number] 21:09:00 Test Item Value Reference Range Interpretation Comments POC-GLUCOSE METER 109 mg/dL 70-110 TESTED AT [facility] 6720 (BEAKER) (test code = AYLIN Rivera [place] 1538) [address] POCT-GLUCOSE [id number] 17:15:00 Test Item Value Reference Range Interpretation Comments POC-GLUCOSE METER 117 mg/dL 70-110 H TESTED AT [facility] 6720 (BEAKER) (test code = AYLIN Rivera [facility] 1538) [address] VITAMIN B12 AND [id number] 06:39:00 Test Item Value Reference Range Interpretation Comments VITAMIN B12 (BEAKER) (test code = 524 pg/mL 213-816 774) FOLATE (BEAKER) (test code = 362) 13.5 ng/mL >=7.0 BASIC METABOLIC [id number] 05:48:00 Test Item Value Reference Range Interpretation [...] S NOT APPLICABLE FOR DIALYSIS PATIEN TS. [id number] 15:42:00 Test Item Value Reference Range Interpretation Comments RPR SCREEN (BEAKER) (test code = Nonreactive Nonreactive 420) HEMOGLOBIN [id number] 09:14:00 Test Item Value Reference Range Interpretation Comments HEMOGLOBIN A1C (BEAKER) (test code = 5.3 % 4.3-6.1 368) TSH/FREE T4 IF [id number] 04:49:00 Test Item Value Reference Range Interpretation Comments THYROID STIMULATING HORMONE 3.18 uIU/mL 0.35-4.94 (BEAKER) (test code = 772) BASIC METABOLIC [id number] 04:38:00 Test Item Value Reference Range Interpretation [...] NOT APPLICABLE FOR DIALYSIS PATIEN TS. LIPID [id number] 04:38:00 Test Item Value Reference Range Interpretation [...] 130-159 High 160-189 Very High >=190HEPATIC FUNCTION [id number] 04:38:00 Test Item Value Reference Range Interpretation [...] (test code = 413) AFB Culture and [id number] 13:24:00Specimen/Source: Wound/PACEMAKERCollected: 09/05/2017 19:45 Status: Final Last Updated: 11/01/2017 13:24 UXD-Okidl-Ecuwxchwbaml (Final) (Final) 09/07/17 No acid fast bacill seen on direct smear Culture Result (Final) (Final) 11/01/17 No growth of AFB at six (6) weeksFungus Culture with [id number] 12:12:00 Specimen/Source: Wound/PACEMAKERCollected: 09/05/2017 19:45 Status: Final Last Updated: 10/22/2017 12:12 Fungal Smear Result (Final) (Final) 09/06/17 No yeast or hyphae seen Culture Result (Final) (Final) 10/22/17 No fungus isolated at 6 weeksCulture, Blood [id number] 08:23:00Specimen: BloodCollected: 09/04/2017 20:30 Status: Final Last Updated: 09/10/2017 08:23 Culture Result (Final) (Final) No Growth After 5 DaysCulture, Blood [id number] 08:23:00Specimen: BloodCollected: 09/04/2017 20:15 Status: Final Last Updated: 09/10/2017 08:23 Culture Result (Final) (Final) No Growth After 5 DaysCulture, Wound [id number] 08:52:00Specimen: WoundCollected: 09/05/2017 19:45 Status: Final Last Updated: 09/08/2017 08:52 Gram Stain (Final) (Final) 09/06/17 No organisms seen, Few WBC's Culture Result (Final) (Final) 09/08/17 Anaerobic culture:No anaerobes isolated at 3 days Isolate (Final) (Final) 09/07/17Few Staph-coag positive Isolate Staph-coag positive JERMAINE (mcg/ml) Amoxicillin/Clav (AUG)<=4/2 Susceptible Ampicillin (AM) >8 Resistant Ampicillin/Sulb (A/S) <=8/4 Susceptible Cefazolin (CFZ) <=4 Susceptible Ceftriaxone (CHILD SUPPORT CASE OFFICER) <=4 Susceptible Chloramphenicol (C) <=8 Susceptible Ciprofloxacin (CP) <=1 Susceptible Clindamycin (CM) 0.5 Susceptible Erythromycin (E) <=0.25 Susceptible Gentamicin (GM) <=1 Susceptible Imipenem (IMP) <=4 Susceptible Levofloxacin (LEV) <=0.5 Susceptible Linezolid (LNZ) 4 Susceptible Oxacillin (OX1) 0.5 Susceptible Penicillin (P) >8 Resistant Rifampin (RA) <=1 Susceptible Tetracycline (TE) <=1 Susceptible Trimethoprim/Sulfa <=0.5/9.Susceptible (SXT) 5 Vancomycin (VA) 2 SusceptibleRenal [id number] 08:51:00 Test Item Value Reference Range Interpretation [...] is not provided , and the patient isMateo-Maciel can, multiply by 1.2 12. If sex [...] National Kidney Foundation,http ://nkd ep.nih.gov CBC with [id number] 07:39:00 Test Item Value Reference Range Interpretation [...] code = ALYMPH) 1.7 K/cumm 0.5-4.6 N [place] Abs (test code = AMONO) 0.3 K/cumm 0.0-1.2 N Eos Abs (test code = AEOS) 0.29 K/cumm 0.00-0.74 N Baso Abs (test code = ABASO) 0.0 K/cumm 0.00-0.21 N Vancomycin, [id number] 12:33:00 Test Item Value Reference Range Interpretation Comments Vanco, Trou (test code = VANTR) 7.9 ug/mL 10.0-20.0 L Magnesium, [id number] 06:37:00 Test Item Value Reference Range Interpretation Comments Magnesium (test code = MG) 2.4 mg/dL 1.7-2.5 N Renal [id number] 06:29:00 Test Item Value Reference Range Interpretation [...] is not provided , and the patient isMateo-Maciel can, multiply by 1.2 12. If sex [...] National Kidney Foundation,http ://nkd ep.nih.gov BHCG, Serum, [id number] 06:26:00 Test Item Value Reference Range Interpretation Comments Preg Qual [Se] (test code = BSHCG) Negative Negative N CBC with [id number] 06:24:00 Test Item Value Reference Range Interpretation [...] code = ALYMPH) 1.6 K/cumm 0.5-4.6 N [place] Abs (test code = AMONO) 0.4 K/cumm 0.0-1.2 N Eos Abs (test code = AEOS) 0.18 K/cumm 0.00-0.74 N Baso Abs (test code = ABASO) 0.0 K/cumm 0.00-0.21 N XR CHEST 1 [id number] 16:29:55XR CHEST 1 VIEWLOCATION: [id number]: None.INDICATION: REVIEW PICC LINE PLACEMENTDISCUSSION:AP chest and [...] = TSH) 3.44 mIU/mL 0.270-4.200 N Lipid [id number] 05:47:00 Test Item Value Reference Range Interpretation Comments Cholesterol (test 160 mg/dL 0-200 N code = CHOL) Triglycerides (test 126 mg/dL 9-200 N code = TRIG) HDL (test code = 35 mg/dL 50-60 L HDL) Chol/HDL (test code 4.6 Ratio 0.0-4.4 H = CHOLPHDL) LDL, Calculated 100 0-130 N (NOTE)RISK O F HEART (test code = LDLC) DISEASEPu blished by Somali Heart AssociationAnal yte Optim al Boderline Increased RiskC HOL <200 200-239 >240TRI G <150 150-199 >200HDL Male: >60 <40HDL Female: >60 <50 LDL < 100 130-15 9 >160 LDL NEAR OPTIMAL IS 100- 129 VLDL (test code = 25 mg/dL 5-40 N VLDL) LDL/HDL (test code = 3 LDLPHDL) Basic Metabolic [id number] 05:47:00 Test Item Value Reference Range Interpretation [...] the National Kidney Foundation,http ://nkd ep.nih.gov Magnesium, [id number] 05:47:00 Test Item Value Reference Range Interpretation Comments Magnesium (test code = MG) 2.3 mg/dL 1.7-2.5 N CBC with [id number] 05:36:00 Test Item Value Reference Range Interpretation [...] code = ALYMPH) 2.2 K/cumm 0.5-4.6 N [place] Abs (test code = AMONO) 0.3 K/cumm 0.0-1.2 N Eos Abs (test code = AEOS) 0.24 K/cumm 0.00-0.74 N Baso Abs (test code = ABASO) 0.0 K/cumm 0.00-0.21 N Partial Thromboplastin [id number] 21:26:00 Test Item Value Reference Range Interpretation Comments aPTT (test code = PTT) 29.00 seconds 24.39-37.25 N Prothrombin [id number] 21:26:00 Test Item Value Reference Range Interpretation Comments PT (test code = PT) 10.70 seconds 9.78-13.35 N INR (test code = INR) 0.95 Ratio 0.6-1.2 N Comprehensive Metabolic [id number] 21:23:00 Test Item Value Reference Range Interpretation [...] is not provided , and the patient isMateo-Maciel can, multiply by 1.2 12. If sex [...] National Kidney Foundation,http ://nkd ep.nih.gov CBC with [id number] 21:16:00 Test Item Value Reference Range Interpretation [...] code = ALYMPH) 2.2 K/cumm 0.5-4.6 N [place] Abs (test code = AMONO) 0.4 K/cumm 0.0-1.2 N Eos Abs (test code = AEOS) 0.17 K/cumm 0.00-0.74 N Baso Abs (test code = ABASO) 0.1 K/cumm 0.00-0.21 N
[2021-04-03 01:46] LABS: Absolute Lymphocytes (CBC) 2.6 K/uL (0.7-4.9); Basophils % 1.1 % (0-1.3); Hematocrit 38.1 % (36.0-45.0); Lymphocytes % 38.1 % (15.3-44.8); MPV 8.6 fL (7.6-11.3); RBC Red Blood Cell Count 4.41 M/uL (3.86-4.86)
[2021-04-03 02:01] LABS: ALT/SGPT 29 U/L (12-78); AST/SGOT 14 U/L (15-37); Albumin 3.5 g/dL (3.4-5.0); Alkaline Phosphatase 113 U/L (45-117); BUN Blood Urea Nitrogen 13 mg/dL (7-18); Bicarbonate 32 mmol/L (21-32); Bilirubin Direct < 0.1 mg/dL (0-0.2); Bilirubin Total 0.1 mg/dL (0.2-1.0); Glucose Level 114 mg/dL (74-106); Potassium 3.6 mmol/L (3.5-5.1); Protein, Total 7.4 g/dL (6.4-8.2); Sodium Level 142 mmol/L (136-145)
[2021-04-03] MEDS ORDERED: ONDANSETRON 4 MG/2 ML VIAL ONE (04:14)
--- NOTE | 2021-04-03 04:28 | ER ---
Nurse's Notes [facility] Name: Jenni Draper Age: 40 yrs Sex: Female : 1980 Arrival Date: 04/02/2021 Time: 23:17 Bed 8 Private MD: Diagnosis: Facial Pain;Dental Caries Presentation: 04/02 23:50 Chief complaint: Patient states: gina. facial swelling that started 2 days ago, went to em the dentist and was told it is not her teeth, denies fever, reports nausea. Coronavirus screen: Client denies travel out of the [place] in the last 14 days. Ebola Screen: Patient negative for fever greater than or equal to 101.5 degrees Fahrenheit, and additional compatible Ebola Virus Disease symptoms Patient denies exposure to infectious person. Patient denies travel to an Ebola-affected area in the 21 days before illness onset. No symptoms or risks identified at this time. Initial Sepsis Screen: Does the patient meet any 2 criteria? Does the patient have a suspected source of infection? No. Patient's initial sepsis screen is negative. Risk Assessment: Do you want to hurt yourself or someone else? Patient reports no desire to harm self or others. Onset of symptoms was April 02, 2021. 23:50 Method Of Arrival: Wheelchair em 23:50 Acuity: LYUBOV 3 em Triage Assessment: 04/03 00:49 General: Appears in no apparent distress. Behavior is calm, cooperative. Pain: Denies ak2 pain. 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 LMP N/A - Hysterectomy em Historical: - Allergies: 23:52 Adhesives; em 23:52 Aspirin; em 23:52 Bactrim; em 23:52 Benadryl; em 23:52 cefixime; em 23:52 Cipro IV; em 23:52 Clindamycin; em 23:52 coconut oil; em 23:52 Demerol; em 23:52 Detrol; em 23:52 Diltiazem; em 23:52 Doxycycline; em 23:52 GABAPENTIN; em 23:52 Iodine; em 23:52 Seroquel; em 23:52 Morphine; em 23:52 Levofloxacin; em 23:52 Latex, Natural Rubber; em 23:52 ivabradine; em 23:52 FISH PRODUCT DERIVATIVES; em 23:52 PENICILLINS; em 23:52 Sulfa (Sulfonamide Antibiotics); em 23:52 Suprax; em 23:52 tolterodine; em 23:52 Toradol; em 04/03 00:50 quetiapine; ak2 - Home Meds: 00:50 Abilify 10 mg Oral tab 1 tab once daily [Active]; albuterol sulfate 1.25 mg/3 mL Inhl ak2 nebu 3 mL 3 times per day [Active]; alprazolam 0.25 mg Oral tab 1 tab nightly [Active]; atorvastatin 10 mg Oral tab 1 tab once daily [Active]; benztropine 1 mg Oral tab 1 tab 2 times per day [Active]; buspirone 15 mg Oral tab 1 tab 2 times per day [Active]; Coreg 25 mg Oral tab 1 tab 2 times per day [Active]; Daliresp 500 mcg Oral tab 1 tab once daily [Active]; digoxin 125 mcg Oral tab [Active]; Eliquis 5 mg Oral tab once a day [Active]; Effexor XR 150 mg Oral cp24 1 cap once daily [Active]; esomeprazole magnesium 40 mg Oral cpDR 1 cap once daily [Active]; Keppra 1,000 mg Oral tab 1 tab every 12 hours [Active]; loratadine 10 mg Oral tab 1 tab once daily [Active]; pregabalin 25 mg Oral 1 cap daily [Active]; ProAir HFA 90 mcg/actuation inhalation HFAA 2 puffs every 6 hours [Active]; Spiriva with HandiHaler 18 mcg inhalation CpDv 1 cap once daily [Active]; Topamax 100 mg Oral tab 2 tabs 2 times per day [Active]; venlafaxine 150 mg Oral cp24 1 cap once daily [Active]; - PMHx: 04/02 23:52 Asthma; Bronchitis; Atrial Fib; CHF; mitral valve prolapse; em - PSHx: 23:53 hysterectomy; Cholecystectomy; right hand; left shoulder; em - Immunization history:: Adult Immunizations up to date. - Social history:: Smoking status: Patient denies any tobacco usage or history of. Screenin/10 00:49 Abuse screen: Denies threats or abuse. Denies injuries from another. Nutritional ak2 screening: No deficits noted. Tuberculosis screening: No symptoms or risk factors identified. Fall Risk None identified. Assessment: 00:50 General: Appears in no apparent distress. Pain: Denies pain. Neuro: Cardiovascular: No ak2 deficits noted. Respiratory: No deficits noted. 03:08 Reassessment: Patient and/or family updated on plan of care and expected duration. Pain ak2 level reassessed. 04:37 Reassessment: Patient appears in no apparent distress at this time. Patient is alert, rr5 oriented x 3, equal unlabored respirations, skin warm/dry/pink. discharge instruction given and explained without complaints made Patient states symptoms have improved. Vital Signs: 04/02 23:50 BP 107 / 80; Pulse 97; Resp 19; Temp 98.0; Pulse Ox 100% on R/A; Weight 58.97 kg; em Height 4 ft. 11 in. (149.86 cm); Pain 06/04; 04/03 03:08 BP 113 / 74; Pulse 86; Resp 16; Pulse Ox 98% on R/A; ak2 04:38 BP 115 / 89; Pulse 80; Resp 19; Pulse Ox 98% ; rr5 04/02 23:50 Body Mass Index 26.26 (58.97 kg, 149.86 cm) em ED Course: 04/02 23:17 Patient arrived in ED. es 23:52 Triage completed. em 23:53 Arm band placed on. em 04/03 00:49 Amilcar Cabrera is Primary Nurse. ak2 00:49 Patient has correct armband on for positive identification. ak2 00:49 No provider procedures requiring assistance completed. ak2 00:59 Davion Hernandez MD is Attending Physician. mh7 02:31 Facial Bones W/ Mpr In Process Unspecified. EDMS 04:26 Christiano Bautista DDS is Referral Physician. mh7 04:38 IV discontinued, intact, bleeding controlled, No redness/swelling at site. Pressure rr5 dressing applied. Administered Medications: 03:56 Drug: Zofran (Ondansetron) 4 mg Route: IVP; Site: right antecubital; rr5 04:39 Follow up: Response: No adverse reaction rr5 Outcome: 04:27 Discharge ordered by . mh7 04:38 Discharged to home ambulatory. rr5 04:38 Condition: stable 04:38 Discharge instructions given to patient, Instructed on discharge instructions, follow up and referral plans. medication usage, Demonstrated understanding of instructions, follow-up care, medications, Prescriptions given X 1. 04:40 Patient left the ED. rr5 Signatures: Dispatcher [employer] EDLeelee Oodm Edgar, RN RN em Roque, Raymond, RN RN rr5 Davion Hernandez MD MD 7 Amilcar Cabrera2 Corrections: (The following items were deleted from the chart) 00:51 07 23:52 Allergies: quetiapine; suma ak2
--- NOTE | 2021-04-03 04:28 | EDPHYS ---
Physician Documentation [facility] Name: Jenni Draper Age: 40 yrs Sex: Female : 1980 Arrival Date: 04/02/2021 Time: 23:17 Bed 8 Private MD: ED Physician Davion Hernandez HPI: 04/03 03:31 This 40 yrs old Female presents to ER via Wheelchair with complaints of mh7 Facial Swelling, Neck Swelling. 03:32 the patient presents with a swollen area of the face and neck. Description: swollen. mh7 Onset: The symptoms/episode began/occurred 5 day(s) ago. Possible cause(s): unknown. 03:32 Associated signs and symptoms: Pertinent positives: nausea, Pertinent negatives: mh7 discharge, drainage, erythema, foreign body sensation, fever, headache, shortness of breath, vomiting. Modifying factors: the symptoms are alleviated by nothing, the symptoms are aggravated by nothing. Severity of symptoms: At their worst the symptoms were moderate, 2 day(s) ago, in the emergency department the symptoms are unchanged. 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 em Historical: - Allergies: 23:52 Adhesives; em 23:52 Aspirin; em 23:52 Bactrim; em 23:52 Benadryl; em 23:52 cefixime; em 23:52 Cipro IV; em 23:52 Clindamycin; em 23:52 coconut oil; em 23:52 Demerol; em 23:52 Detrol; em 23:52 Diltiazem; em 23:52 Doxycycline; em 23:52 GABAPENTIN; em 23:52 Iodine; em 23:52 Seroquel; em 23:52 Morphine; em 23:52 Levofloxacin; em 23:52 Latex, Natural Rubber; em 23:52 ivabradine; em 23:52 FISH PRODUCT DERIVATIVES; em 23:52 PENICILLINS; em 23:52 Sulfa (Sulfonamide Antibiotics); em 23:52 Suprax; em 23:52 tolterodine; em 23:52 Toradol; em 04/03 00:50 quetiapine; ak2 - Home Meds: 00:50 Abilify 10 mg Oral tab 1 tab once daily [Active]; albuterol sulfate 1.25 mg/3 mL Inhl ak2 nebu 3 mL 3 times per day [Active]; alprazolam 0.25 mg Oral tab 1 tab nightly [Active]; atorvastatin 10 mg Oral tab 1 tab once daily [Active]; benztropine 1 mg Oral tab 1 tab 2 times per day [Active]; buspirone 15 mg Oral tab 1 tab 2 times per day [Active]; Coreg 25 mg Oral tab 1 tab 2 times per day [Active]; Daliresp 500 mcg Oral tab 1 tab once daily [Active]; digoxin 125 mcg Oral tab [Active]; Eliquis 5 mg Oral tab once a day [Active]; Effexor XR 150 mg Oral cp24 1 cap once daily [Active]; esomeprazole magnesium 40 mg Oral cpDR 1 cap once daily [Active]; Keppra 1,000 mg Oral tab 1 tab every 12 hours [Active]; loratadine 10 mg Oral tab 1 tab once daily [Active]; pregabalin 25 mg Oral 1 cap daily [Active]; ProAir HFA 90 mcg/actuation inhalation HFAA 2 puffs every 6 hours [Active]; Spiriva with HandiHaler 18 mcg inhalation CpDv 1 cap once daily [Active]; Topamax 100 mg Oral tab 2 tabs 2 times per day [Active]; venlafaxine 150 mg Oral cp24 1 cap once daily [Active]; - PMHx: 04/02 23:52 Asthma; Bronchitis; Atrial Fib; CHF; mitral valve prolapse; em - PSHx: 23:53 hysterectomy; Cholecystectomy; right hand; left shoulder; em - Immunization history:: Adult Immunizations up to date. - Social history:: Smoking status: Patient denies any tobacco usage or history of. ROS: 04/03 03:32 Constitutional: Negative for fever, chills, and weight loss, Eyes: Negative for injury, mh7 pain, redness, and discharge, ENT: Negative for injury, pain, and discharge, Cardiovascular: Negative for chest pain, palpitations, and edema, Respiratory: Negative for shortness of breath, cough, wheezing, and pleuritic chest pain, Abdomen/GI: Negative for abdominal pain, nausea, vomiting, diarrhea, and constipation, Back: Negative for injury and pain, : Negative for injury, bleeding, discharge, and swelling, MS/Extremity: Negative for injury and deformity, Skin: Negative for injury, rash, and discoloration, Neuro: Negative for headache, weakness, numbness, tingling, and seizure, Psych: Negative for depression, anxiety, suicide ideation, homicidal ideation, and hallucinations, Allergy/Immunology: Negative for hives, rash, and allergies, Endocrine: Negative for neck swelling, polydipsia, polyuria, polyphagia, and marked weight changes, Hematologic/Lymphatic: Negative for swollen nodes, abnormal bleeding, and unusual bruising. Exam: 03:32 Constitutional: This is a well developed, well nourished patient who is awake, alert, mh7 and in no acute distress. Head/Face: Normocephalic, atraumatic. Eyes: Pupils equal round and reactive to light, extra-ocular motions intact. Lids and lashes normal. Conjunctiva and sclera are non-icteric and not injected. Cornea within normal limits. Periorbital areas with no swelling, redness, or edema. 03:32 Neck: Trachea midline, no thyromegaly or masses palpated, and no cervical lymphadenopathy. Supple, full range of motion without nuchal rigidity, or vertebral point tenderness. No Meningismus. Chest/axilla: Normal chest wall appearance and motion. Nontender with no deformity. No lesions are appreciated. Cardiovascular: Regular rate and rhythm with a normal S1 and S2. No gallops, murmurs, or rubs. Normal PMI, no JVD. No pulse deficits. Respiratory: Lungs have equal breath sounds bilaterally, clear to auscultation and percussion. No rales, rhonchi or wheezes noted. No increased work of breathing, no retractions or nasal flaring. Abdomen/GI: Soft, non-tender, with normal bowel sounds. No distension or tympany. No guarding or rebound. No evidence of tenderness throughout. Back: No spinal tenderness. No costovertebral tenderness. Full range of motion. Skin: Warm, dry with normal turgor. Normal color with no rashes, no lesions, and no evidence of cellulitis. MS/ Extremity: Pulses equal, no cyanosis. Neurovascular intact. Full, normal range of motion. Neuro: Awake and alert, GCS 15, oriented to person, place, time, and situation. Cranial nerves II-XII grossly intact. Motor strength 5/5 in all extremities. Sensory grossly intact. Cerebellar exam normal. Normal gait. Psych: Awake, alert, with orientation to person, place and time. Behavior, mood, and affect are within normal limits. 03:32 ENT: External ear(s): are unremarkable, Ear canal(s): are normal, TM's: are normal, Nose: is normal, Mouth: is normal, Posterior pharynx: is normal, airway is patent, Dental exam: dental caries, that is moderate, specifically in the upper right third molar (#1), upper right second molar (#2) and upper right first molar (#3), missing teeth, specifically the upper left first molar (#14), upper left second molar (#15) and upper left third molar (#16), Voice: is normal. Vital Signs: 04/02 23:50 BP 107 / 80; Pulse 97; Resp 19; Temp 98.0; Pulse Ox 100% on R/A; Weight 58.97 kg; em Height 4 ft. 11 in. (149.86 cm); Pain 10; 04/03 03:08 BP 113 / 74; Pulse 86; Resp 16; Pulse Ox 98% on R/A; ak2 04:38 BP 115 / 89; Pulse 80; Resp 19; Pulse Ox 98% ; rr5 04/02 23:50 Body Mass Index 26.26 (58.97 kg, 149.86 cm) em MDM: 04:24 Differential diagnosis: abscess, allergic reaction, cellulitis, dental caries, facial mh7 pain. Data reviewed: vital signs, nurses notes, lab test result(s), CBC, electrolytes, radiologic studies, CT scan. Data interpreted: Pulse oximetry: on room air is 98 %. Interpretation: normal. Counseling: I had a detailed discussion with the patient and/or guardian regarding: the historical points, exam findings, and any diagnostic results supporting the discharge/admit diagnosis, lab results, radiology results, the need for outpatient follow up, a dentist, to return to the emergency department if symptoms worsen or persist or if there are any questions or concerns that arise at home. Response to treatment: the patient's symptoms have markedly improved after treatment. 04:27 Patient medically screened. [facility] 04/03 01:26 Order name: CBC with Diff; Complete Time: 03:53 [facility] 04/03 01:26 Order name: Basic Metabolic Panel; Complete Time: 03:53 [facility] 04/03 01:26 Order name: LFT's; Complete Time: 03:53 [facility] 04/03 02:18 Order name: Facial Bones W/ Mpr EDMS 04/03 01:26 Order name: Saline Lock; Complete Time: 04:31 [facility] Administered Medications: 03:56 Drug: Zofran (Ondansetron) 4 mg Route: IVP; Site: right antecubital; rr5 04:39 Follow up: Response: No adverse reaction rr5 Disposition Summary: 04/03/21 04:27 Discharge Ordered Location: Home [facility] Problem: an ongoing problem [facility] Symptoms: have improved [facility] Condition: Stable [facility] Diagnosis - Facial Pain [facility] - Dental Caries [facility] Followup: [facility] - With: Private Physician - When: 1 - 2 days - Reason: Worsening of condition, Recheck today's complaints, Continuance of care, Re-evaluation by your physician Followup: [facility] - With: Christiano Bautista DDS - When: 1 - 2 days - Reason: Worsening of condition, Recheck today's complaints Discharge Instructions: - Discharge Summary Sheet [facility] - Dental Caries, Adult, [id number] [facility] Forms: - Medication Reconciliation Form [facility] - Thank You Letter [facility] - Antibiotic Education [facility] - Prescription Opioid Use [facility] Prescriptions: - ondansetron 4 mg Oral tablet,disintegrating - place 1 tablet by TRANSLINGUAL route every 8 hours As needed; 10 tablet; [facility] Refills: 0, Product Selection Permitted Signatures: Dispatcher [employer] Chaz Fleming RN RN em Roque, Raymond, RN RN rr5 Davion Hernandez MD MD [facility] Amilcar Cabrera [facility] Corrections: (The following items were deleted from the chart) 00:51 04/02 23:52 Allergies: quetiapine; em ak2 04/03 02:19 01:32 Maxillofacial W/Cont+CT.RAD.BRZ ordered. EDRI EDRI
[2021-04-03 04:53] VITALS: TEMP 98
[2021-04-03 04:55] VITALS: O2SAT 98
[2021-04-03 04:57] VITALS: BP 115/89
--- NOTE | 2021-04-03 22:26 | RAD REPORT ---
EXAM DESCRIPTION: CT - Facial Bones W/ Mpr - 04/03/2021 6:37 am CLINICAL HISTORY: 40 years, Female, SWELLING COMPARISON: None. TECHNIQUE: Multiple transaxial tomograms of the maxillofacial bones were performed utilizing 2 mm sl ice thickness at 2 mm interval reconstruction. In addition 2-D multiplanar reconstructions in the cor onal and sagittal plane were performed and reviewed. This exam was performed according to our departmental dose-optimization protocol, which includes auto mated exposure control, adjustment of the mA and/or kV according to patient size and/or use of iterat corey reconstruction technique. FINDINGS: There are hypoplastic/absent frontal sinuses. The rest of the paranasal sinuses demonstrat e to be unremarkable. The orbital bourne, globes, intraconal and extraconal elements demonstrate to be within normal limits. The temporomandibular joint, zygomatic bones, nasal bones, mandible demonstrate to be unremarkable. T here is no evidence for acute bony injuries. Superior medial and inferior turbinates are grossly un remarkable. Nasopharynx and oropharynx demonstrate clear. No focal masses were demonstrated. Th e rest of the soft tissue and bony structures are grossly unremarkable. Dental cavities are identified within the right molars with periodontal lucency with minimal inferior wall maxillary sinus thickening and/or reactive changes. IMPRESSION: No evidence for acute bony injuries. Dental cavities are identified within right molar with periodontal lucency and minimal inferior wall maxillary sinus thickening and/or reactive changes. Electronically signed by: Edward Joya MD 04/03/2021 3:17 AM CDT Due to temporary technical issues with the PACS/Fluency reporting system, reports are being signed by the in house radiologists without review as a courtesy to insure prompt reporting. The interpreting radiologist is fully responsible for the content of the report.
== END 2021-04-03 04:40 | disposition home or self-care (01) ==
LOC: ER 23:14
DX: K02.9 Dental caries, unspecified (principal); I50.9 Heart failure, unspecified; Z79.01 Long term (current) use of anticoagulants; Z88.0 Allergy status to penicillin; Z88.1 Allergy status to other antibiotic agents; Z88.2 Allergy status to sulfonamides; Z88.5 Allergy status to narcotic agent; Z88.8 Allergy status to other drugs, medicaments and biological substances; Z91.013 Allergy to seafood; Z91.018 Allergy to other foods; Z91.040 Latex allergy status; Z91.048 Other nonmedicinal substance allergy status
CPT/HCPCS: 85025; 80048; 36415; 80076; 70486; 76377; 96374; 99283; J2405

== ENCOUNTER 2021-04-13 21:11 | Emergency (ER) | payer MEDICAID ==
--- OUTSIDE RECORDS SUMMARY | 2021-04-13 21:16 | XMS REPORT | Continuity of Care Document ---
:1980 Author Organization [facility] t Address [address] [place] [address] Care Team Providers Name Role Phone MILTON [...] Date Expiration Date Sour ce Number [facility] [id number] 2011 Benny marie STAR+PLUS 00:00:00 Spiritism [id number] 2010- PresentHMO MEDICAID - MEDICAID [id number] [address] [facility] CARE[facility]00 - Medical MEDICAID Center [id number] 2010- PresentMedicaid Non-Contracted SOLORIO [id number] [address] [place] MEDICAIDMEDICAID 00:00:00 - Medica l [id number] 018-Present Problems Condition Condition Condition Status Onset Resolution Last Treating Co mments Source Name Details Category Date Date Treatment Clinician Date Left-sided Left-sided Disease Active [facility] weakness weakness 02-12 [facility] - 00:[facility]: Medical 00 [place] Received Received Disease [facility] tissue 02[facility]12 [facility] - plasminoge plasminoge 00:00: De dical n n 00 Center activator activator (t-PA) (t-PA) less than less than 24 hours 24 hours prior to prior to arrival arrival Acute Acute Disease Active [facility] ischemic ischemic 02-11 [facility] - stroke stroke 00:00: Medical 00 [place] Chest pain Chest pain Disease Active [facility] in adult in adult - [facility] - 00:[facility]: Medical 00 [place] Seizure Seizure Disease Active 2018-[address] disorder disorder 2- [facility] - 00:[facility]: Medical 00 [place] Anxiety Anxiety Disease Active [facility] disorder disorder 04-29 [facility] - 00:00: Medical 00 [place] Asthma Asthma Disease Active [facility] 8 [facility] - 00:[facility]: Medical 00 [place] Paresthesi Paresthesi Disease Active 2017-[address] a of left a of left 10-17 [facility] - arm and arm and 00:00: Medical leg leg 00 Center PAF PAF Disease Active [facility] (paroxysma (paroxysma 803 Jeanie kes - l atrial l atrial 00:00: Medica l fibrillati fibrillati 00 Ce nter on) on) A-fib A-fib Disease Active [facility] COPD COPD Disease Resolve 2021-03-18 2021-03-18 [place] exacerbati exacerbati d 03-17 00:00:00 14:29:31 Methodi [...] [place] mide 00:00: d Antibiot 00 Medical [facility]) Center Fish FA Active SV 0 [...] [facility] ine 1-04 [place] 00:00: d 00 [facility] clindamy DA Active MO 2020-0 [facility] stephan 1-04 [place] 00:00: d 00 [facility] sulfamet DA Active MO 2020-0 [facility] hoxazole 1-04 [place] 00:00: d 00 [facility] trimetho DA Active MO 2020-0 [facility] [...] [facility] m - [place] 00:00: d 00 [facility] Center diphenhy DA Active SV 2020-0 [facility] dramine - [place] 00[facility]00: d 00 [facility] topirama DA Active SV 2020-0 [facility] te - [place] 00:00: d 00 [facility] Center levoflox DA Active SV 2020-0 [facility] acin - [place] 00:00: d 00 [facility] quetiapi DA Active MO 2020-0 [facility] ne - [place] 00:00: d 00 [facility] Center tolterod DA Active MO 2020-0 [facility] ine -04 [place] 00:00: d 00 [facility] Center latex DA Active SV 2020-0 [facility] -04 [place] 00:00: d 00 Medical Center ivabradi DA Active MO 2020-0 [facility] ne - [place] 00:00: d 00 [facility] Center coconut FA Active MO 2020-0 [facility] 1-04 [place] 00:00: d 00 [facility] Center Topirama Propensi Active Anaphylaxis H lolis [...] [facility] - adverse 00:00: Medical reaction 00 [place] s Gabapent Propensi Active Shortness Of 2017-[address] in ty to Breath, Rash 10-17 [facility] - adverse 00:00: Medical reaction 00 [place] s Iodine Propensi Active Rash 2017-[address] And ty to 10-17 [facility] - Iodide adverse 00:00: Medical Containi reaction 00 [facility] s Products Latex Propensi Active Rash 2017-[address] ty to 10-17 [facility] - adverse 00:00: Medical reaction 00 [place] s Morphine Propensi Active Anaphylaxis 2017-[address] ty to 10-17 [facility] - adverse 00:00: Medical reaction 00 [place] s Penicill Propensi Active Anaphylaxis 2017-[address] ins ty to 10-17 [facility] - adverse 00:00: Medical reaction 00 [place] s Quetiapi Propensi Active 2017-[address] ne ty to 10-17 [facility] - adverse 00:00: Medical reaction 00 [place] s Sulfa Propensi Active Rash 2017-[address] (Sulfona ty to 10-17 [facility] - mide adverse 00:00: Medical Antibiot reaction 00 [facility]) s Cefixime Propensi Active Rash 2017-[address] ty to 10-17 [facility] - adverse 00:00: Medical reaction 00 [place] s Tramadol Propensi Active Rash 2017-[address] ty to 10-17 [facility] - adverse 00:00: Medical reaction 00 [place] s Adhesive Propensi Active Rash 2017-09 Can use [facility] Tape ty to 10-17 papertape [facility] - adverse 00:00: . Medical reaction 00 [place] s Sulfamet Propensi Active Anaphylaxis 2017-09 C [...] to drug Diphenhy Propensi Active Hives, Other [place] dramine ty to (See 01-04 Methodi adverse Comments) 00:00: st reaction 00 s to drug Gabapent Propensi Active Other (See Ho kurt in ty to Comments), 4-12 Method i adverse Rash, 00:00: st reaction Shortness Of 00 s to Breath drug Iodine Propensi Active Rash [place] And ty to -12 Methodi Iodide adverse 00:00: st Containi reaction 00 ng s to Products drug Morphine Propensi Active Anaphylaxis 2016-09 [place] ty to 0-05 Methodi adverse 00:00: st reaction 00 s to drug Tramadol Propensi Active Other (See Rash Rash [place] ty to Comments), 06-22 Method i adverse [...] Date Stop Date Quantity Comments Source History [facility] Meth odist Alcohol Std Drinks History [facility] Meth odist Alcohol Binge Exposure to Not sure [place] Metho dist SARS-CoV-2 (event) Tobacco use and 2021-03-17 2021-03-17 Never used Beny Jerez ethodist exposure 00:00:00 00:00:00 Alcohol intake 2021-03-17 2021-03-17 Current [facility] thodist 00:00:00 00:00:00 non-drinker of alcohol (finding) History SDMS 2018-09-05 2018-09-05 1 [place] Meth odist Alcohol Frequency 00:00:00 00:00:00 Sex [birth year] At [birth year] Swan Solitario ethodist 00:00:00 00:00:00 Smoking Status Start Date Stop Date Source Former smoker 2021-03-17 00:00:00 2021-03-17 00:00:00 [place] Spirit[facility] Medications Ordered Filled Start Stop Current Ordering Indication Dosage Frequency Signature Comments Components Source Medication Medication Date Date Medication? Clinician (SIG) Name Name fluticasone Yes 100ug QD 2 sprays [place] propionate 6-25 (100 mcg Metho di (FLONASE) 00:00: total) by st 50 00 Each Nare mcg/actuati route on nasal daily. spray fexofenadin 2020- Yes 180mg QD Take 1 Ho uswild e (SUDHAKAR) 6-25 07-25 tablet Metho di [...] MG 24 44 daily. hr capsule apixaban 0 Yes 5mg Q.5D Take 5 mg Hous [...] MG capsule 17:52: nightly. st 44 cariprazine Yes 1.5mg QD Take 1.5 [place] [...] inhaler capsule and inhale once daily. rosuvastati Yes 5mg QD Take 5 mg [place] n (CRESTOR) 6-24 by mouth Meth jamie 5 mg tablet 17:52: daily. st 44 cycloSPORIN Yes 1[drp] Q.5D 1 drop 2 Swan E 6-24 (two) Methodi (RESTASIS) 17:52: times a st 0.05 % 44 day. ophthalmic emulsion albuterol Yes 1{ampul Q.74362001 Take 1 [facility] (ACCUNEB) 6-24 e} [id number] ampule by Methodi 1.25 mg/3 17:52: 3D nebulizati st mL 44 on 3 nebulizer (three) solution times a day. esomeprazol 2020- No 20mg QD Take 20 mg Swan e (NexIUM) 03-18 by mouth Meth jamie 20 MG 15:19: [...] QD Take 10 mg Swan e (ABILIFY) - 06-23 by mouth Met hodi 10 MG 20:39: [...] MG 14:04: mouth Medical tablet 46 daily. [place] venlafaxine Yes 150mg QD Take [address] (EFFEXOR-XR 5-21 mg by [facility] - ) 150 MG 24 14:04: mouth Medic al hr capsule 46 daily. [place] apixaban Yes 5mg QD Take 5 mg [...] 21 :00 (two) Center times daily. ROFLUMILAST COPD 500ug QD Take [address] [...] daily as M edical 31 :00 needed. [place] ARIPiprazol No 5mg QD Take [address] e (ABILIFY) 5-19 05-19 by mouth Berta es - 5 MG tablet 22:18: 00:00 nightly. M edical 03 :00 [place] ARIPiprazol No 10mg QD Take [address] e (ABILIFY) 5-19 05-19 by mouth Berta es - 10 MG 22:17: 00:00 daily. Medical disintegrat 48 :00 Center ing tablet Vital Signs Vital Name Observation Time Observation Value Comments Source Oxygen saturation in 2021-03-18 15:00:00 97 /min Beny Ortiz Arterial blood by Pulse oximetry Systolic blood 2021-03-18 12:24:48 132 mm[Hg] Percy fields Spiritism pressure Diastolic blood 2021-03-18 12:24:48 72 mm[Hg] Shanika on Spiritism pressure Heart rate 2021-03-18 12:24:48 96 /min Beny Spiritism Body temperature 2021-03-18 12:24:48 37 Ayaka [facility] wild Spiritism Respiratory rate 2021-03-18 12:24:48 14 /min [facility] wild Spiritism Body height 2021-03-17 20:37:00 149.9 cm Beny Ortiz Body weight 2021-03-17 19:09:00 58.968 kg Beny Bishopist BMI 2021-03-17 19:09:00 26.26 kg/m2 [place] Spiritism Systolic blood 2021-02-12 12:00:00 101 mm[Hg] [facility] Diastolic blood 2021-02-12 12:00:00 72 mm[Hg] [facility] Heart rate 2021-02-12 12:00:00 93 /min [place] [facility] Respiratory rate 2021-02-12 12:00:00 18 /min [facility] Oxygen saturation in 2021-02-12 12:00:00 96 /min [facility] - Arterial blood by Medical Ce nter Pulse oximetry Body temperature 2021-02-12 11:00:00 37.56 Ayaka [facility] Body weight 2021-02-11 10:15:00 59.5 kg [place] [facility] BMI 2021-02-11 10:15:00 26.48 kg/m2 [place] [facility] Body height 2021-02-11 10:15:00 149.9 cm [place] [facility] Procedures Procedure Date / Time Performing Clinician Source Performed POC GLUCOSE 2021-03-18 12:31:00 Cliff Berkowitz Meth odist ECG 12-LEAD 2021-03-18 12:28:01 Christa Bolanos Me thodist TROPONIN 2021-03-18 11:41:00 Christa Bolanos De thodist TTE COMPLETE, WO 2021-03-18 09:19:12 Christa Bolanos M ethodist CONTRAST, W DOPPLER ([id number]) POC GLUCOSE 2021-03-18 08:14:00 Christa Bolanos De thodist HC COMPLETE BLD COUNT 2021-03-18 05:00:00 Laeshira, Christa Ortiz W/AUTO DIFF COMPREHENSIVE METABOLIC 2021-03-18 05:00:00 Cici, Christa hicks Spiritism PANEL MAGNESIUM LEVEL 2021-03-18 05:00:00 Cici, Christa Swan De thodist PHOSPHORUS LEVEL 2021-03-18 05:00:00 Cici, Christa Swan M ethodist LIPID PANEL 2021-03-18 05:00:00 Ciic, Christa Swan De thodist HEMOGLOBIN A1C 2021-03-18 05:00:00 Violeteq, Christa Swan De thodist ESTIMATED GFR 2021-03-18 05:00:00 Violetshira, Christa Swan De thodist URINE CULTURE 2021-03-18 01:12:00 Cici, Christa Swan De thodist URINALYSIS SCREEN AND 2021-03-18 00:36:00 Laeeq, Christa Ortiz MICROSCOPY, WITH REFLEX TO CULTURE LEGIONELLA URINARY 2021-03-18 00:36:00 Laeeq, Christa Ortiz ANTIGEN STREPTOCOCCUS PNEUMONIAE 2021-03-18 00:36:00 Laeeq, Christa Ortiz URINARY ANTIGEN BLOOD CULTURE, AEROBIC & 2021-03-17 23:35:00 Laeeq, Christa Ortiz ANAEROBIC BLOOD CULTURE, AEROBIC & 2021-03-17 23:25:00 Violeteq, Christa Ortiz ANAEROBIC DIGOXIN LEVEL 2021-03-17 23:24:00 Christa Bolanos De thodist TROPONIN 2021-03-17 23:24:00 Hector Alvarez ethodist LACTIC ACID LEVEL, SEPSIS 2021-03-17 23:24:00 Christa Bolanos - NOW AND REPEAT 2X EVERY 3 HOURS POC GLUCOSE 2021-03-17 20:38:00 Christa Bolanos De thodist ARTERIAL BLOOD GAS 2021-03-17 20:10:00 Christa Bolanos US DUPLEX VENOUS LOWER 2021-03-17 20:00:06 Christa Bolanos EXTREMITY BILATERAL LACTIC ACID LEVEL, SEPSIS 2021-03-17 18:47:00 Christa Bolanosist - NOW AND REPEAT 2X EVERY 3 HOURS TROPONIN 2021-03-17 18:47:00 Christa Bolanos De thodist XR CHEST 1 VW PORTABLE 2021-03-17 16:20:18 Hector Alvarez TROPONIN 2021-03-17 16:05:00 Christa Bolanos De thodist B NATRIURETIC PEPTIDE 2021-03-17 16:05:00 Hector Alvarez D-DIMER 2021-03-17 16:05:00 Hector Alvarez ethodi ESTIMATED GFR 2021-03-17 16:05:00 Hector Alvarez ethyann HC COMPLETE BLD COUNT 2021-03-17 16:05:00 Hector Alvarez W/AUTO DIFF LACTIC ACID LEVEL, SEPSIS 2021-03-17 16:05:00 Christa Bolanos - NOW AND REPEAT 2X EVERY 3 HOURS COMPREHENSIVE METABOLIC 2021-03-17 16:05:00 Hector Alvarez Spiritism PANEL ECG ED PRELIMINARY 2021-03-17 15:36:46 Hector Alvarez Spiritism INTERPRETATION ECG 12-LEAD 2021-03-17 15:19:38 Hector Alvarez BASIC METABOLIC PANEL (7) 2021-02-12 05:34:00 [facility] 2021-02-12 05:34:00 Johan Alison [facility] PHOSPHORUS 2021-02-12 05:34:00 [place] [facility] CBC W/PLT COUNT & AUTO 2021-02-12 04:48:00 Alison Prado I [facility] MR BRAIN WITHOUT IV 2021-02-11 16:08:00 Igor Chew [facility] MRA HEAD WITHOUT IV 2021-02-11 16:07:00 Igor Chewim [facility] MRA NECK WITHOUT IV 2021-02-11 16:07:00 [facility] RAPID DRUG SCREEN, URINE 2021-02-11 03:05:00 [facility] URINALYSIS WITH 2021-02-11 03:05:00 Johan [facility] - MICROSCOPIC IF INDICATED [facility] URINALYSIS MICROSCOPIC 2021-02-11 03:05:00 Alison Prado [facility] HOMOCYSTEINE 2021-02-11 02:46:00 [facility] RPR 2021-02-11 02:46:00 [facility] TSH/FREE T4 IF INDICATED 2021-02-11 02:46:00 [facility] VITAMIN B12 AND FOLATE 2021-02-11 02:46:00 Johan Alison [facility] CBC W/PLT COUNT & AUTO 2021-02-11 02:46:00 Johan [facility] BASIC METABOLIC PANEL (7) 2021-02-11 02:46:00 Johan [facility] MAGNESIUM 2021-02-11 02:46[facility] 2021-02-11 02:46:00 [facility] C-REACTIVE PROTEIN 2021-02-11 02:46:00 [facility] DIGOXIN LEVEL 2021-02-11 02:46:00 [facility] XR CHEST 1 VIEW 2021-02-10 22:20:00 [facility] PORTABLE/BEDSIDE [facility] POCT-GLUCOSE METER 2021-02-10 21:28:00 Wilmer Vera [facility] LIPID PANEL 2021-02-10 21:22:00 [facility] CBC W/PLT COUNT & AUTO 2021-02-10 21:21:00 Alison Prado [facility] I [facility] COMPREHENSIVE METABOLIC 2021-02-10 21:21:00 Alison Prado [facility] PROTHROMBIN TIME/INR 2021-02-10 21:21:00 Johan [facility] APTT 2021-02-10 21:21:00 [facility]UM 2021-02-10 21:21:00 [facility] PHOSPHORUS 2021-02-10 21:21:00 Johan [facility] HIGH SENSITIVITY TROPONIN 2021-02-10 21:21:00 [place] [facility] B-TYPE NATRIURETIC FACTOR 2021-02-10 21:21:00 [facility] LACTIC ACID, VENOUS 2021-02-10 21:21:00 Johan Alison [facility] CREATINE KINASE (CK) 2021-02-10 21:21:00 Johan [facility] HEMOGLOBIN A1C 2021-02-10 21:21:00 [facility] ARRYTHMIA IMPLANT REPORT 2021-02-10 00:00:00 Provider, Mino [facility] - - SCAN Scanning [facility] Plan of Care Planned Activity Planned Date Details Comments Source Future Scheduled 2021-05-26 [facility] (#1) [code = [facility] INFLUENZA VACCINE (#1)] Future Scheduled 2021-04-25 INFLUENZA VACCINE [place] [facility] Test 00:00:00 [code = INFLUENZA VACCINE] Future Scheduled 2020-09-[address] [facility] - Test 00:00:00 (12+) [code = [facility] DEPRESSION SCREENING (12+)] Future Scheduled 2002 Screening for [facility] thodist Test 00:00:00 malignant neoplasm of cervix (procedure) [code = 330724191] Future Scheduled [address] Berta es - Test 00:00:00 malignant neoplasm Medical C enter of cervix (procedure) [code = 730535287] Future Scheduled 2000 DTAP/TDAP/TD [facility] - Test 00:00:00 VACCINES (1 - Tdap) [facility] [code = DTAP/TDAP/TD VACCINES (1 - Tdap)] Future Scheduled [address] [facility] - Test 00:00:00 SCREENING [code = Medical Ce nter HEPATITIS C SCREENING] Encounters Start End Encounter Admission Attending Care Care Encounter Source Date/Time Date/Time Type Type Clinicians Facility Department ID 2021-04-09 2021-04-09 Telephone Malena [facility] [id number] 00:00:00 00:00:00 Tucker Stafford [id number] Jacki [id number] Margo [id number] nal 5 [facility] 2021-03-17 2021-03-18 Outpatient [facility] [id number] [place] 00:00:00 00:00:00 CHRISTA [address] 2017-09-06 2017-09-08 Inpatient [facility] [id number] 10:12:00 02:32:00 [facility] Results Test Description Test Time Test Comments Results Result Comments Source ECG 12 lead 2021-03-19 09:56:41 Test Item Value Reference Range Interpretation Comme nts Ventricular rate (test code = 253) 89 Atrial rate (test code = 255) 89 ID interval (test code = 266) 132 QRSD [...] 15:19,-No significant change was found- Beny Perez [id number] 07:41:23 Test Item Value Reference Range Interpretation Comments Urine culture Mixed alok Specimen isolate (test <=10-3 col/cc InformationSp ecimen code = 48299-8) Source: Urin eSpecimen Site: Clean cat negrito [place] MethodistTransthoracic Echocardiogram Complete, (w Contrast, Strain and 3D if needed)2021-03-18 18:04:52 Test Item Value Reference Range Interpretation Comments Ao Root Diameter (test 2.73 cm code = 5123541378) AoV Area, Vmax (test 2.24 cm2 code = 0955991636) AoV Area, VTI (test 2.25 cm2 code = 3406852066) AoV Mean PG (test code 3.66 mmHg = 7424750659) AoV Peak PG (test code 8.44 mmHg = 9022382955) AoV Vmax (test code = 1.46 m/s 1168921101) AoV VTI (test code = 0.28 m 8761996554) IVS,d (test code = 0.72 cm 4788813163) IVS/LVPW,2D (test code 1.11 = 5518855898) Left Atrium Dimension 2.68 cm Anterior (test code = 3021488933) LV,d (test code = 3.69 cm 5058040466) LV EF,2D (test code = 79.68 % 3221454434) LV,s (test code = 2.17 cm 8416440960) LVOT area (test code = 2.75 cm2 4355582703) LVOT Diam,S (test code 1.87 cm = 5215462811) LVOT Vmax (test code = 1.18 m/s 2993639038) LVOT VTI (test code = 0.23 m 3886886037) LVPWD,d (test code = 0.65 cm 4918694765) PV Pk Grad (test code = 2.79 mmHg 3254875612) PV VMAX (test code = 0.84 m/s 3529860026) RVOT Vmax (test code = 0.85 m/s 0723896090) RVSP (TR) (test code = 37.77 mmHg 6938258045) TR Vpeak (test code = 2.86 mm/s 5676762334) MV E A ratio (test code 1.22 = 1776924817) RA pressure (test code 5.00 mmHg = 8785736680) TR pk grad (test code = 33 mmHg 2622805322) MR Vmax (test code = 5.49 m/s 6232965600) E wave decelartion time 232.88 msec (test code = 1996361037) MV Peak A Alf (test 0.76 m/s code = 2122716727) MV valve area p 1/2 3.26 cm2 method (test code = 5892406301) MV Peak E Alf (test 0.92 m/s code = 5840596929) MV stenosis pressure 67.54 ms 1/2 time (test code = 2474937210) LVOT stroke volume 0.63 cm3 (test code = 3349400134) AV LVOT peak gradient 5.58 mmHg (test code = 0901054246) RVSP (test code = 37.77 mmHg 9322720190) Ao Root Diameter (test 2.73 cm code = 7223766228) MV mean gradient (test 2.07 mmHg code = 2023375725) LV SYS VOL (test code = 15.61 ml 4319301474) LV MARTINS VOL (test code 57.63 ml = 4082736266) LA area s A4C (test 11.16 cm2 code = 4021732800) LV SV Teich 2D (test 42.02 ml code = 0141779278) LV Vol s Teich PSAX 15.61 ml (test code = 3508158472) MR peak grad (test code 5.87 mmHg = 2311162986) MV Vmax (test code = 1.21 m 7957323574) MV VTI Tips (test code 0.24 m = 8620163337) RVOT pk grad (test code 2.91 mmHg = 5841442627) AoV Vmn (test code = 0.91 9815572417) LV FS Teich 2D (test 41.21 code = 9795045475) MV AE ratio (test code 0.82 = 4965201381) LV FS Cube 2D (test 41.21 code = 7285553496) LVOT Vmn (test code = 0.70 4787675856) Aov area Vmn (test code 2.13 cm2 = 2680550991) LVOT mean grad (test 2.45 mmHg code = 7120854833) MAX Pred HR (test code 180.23 = 8909395858) 85 of MPHR (test code = 153.19 7118548337) Calc MPHR (test code = 180.23 bpm 5434064902) LV SV Cube 2D (test 39.93 ml code = 3620542561) LV vol d cube 2D (test 50.11 ml code = 9735201818) LV vol s cube 2D (test 10.18 ml code = 2446027229) MV Decel slope (test 3.97 m/s2 code = 8261656996) Pred Exer Dur R1 (test 10.09 code = 6938613646) Pred METS R1 (test code 9.53 = 0118340535) LA Vol MOD A4C (test 24.20 ml code = 1601873866) Velocity Ratio (V1/V2) 0.81 m/s (test code = 4689) EF (test code = 72.91 % 3632352651) E/A ratio (test code = 1.21 4221318646) LVOT VTI (CM) (test 23.00 cm code = 1097041259) SOMMER (test code = SOMMER) Left ventricular systolic function is normal. Left Ventricular ejection fraction is 60 - 65%. Normal left ventricular size with preserved systolic and diastolic function and no regionality. Normal right sided chambers. Mild mitral and tricuspid regurgitation. Normal pulmonary arterial systolic pressures. [facility] [id number] 12:32:37 Test Item Value Reference Range Interpretation Comments POC glucose (test code 207 mg/dL 65-99 H Opera tor Name: = 30092-5) Satya Khoury Device ID: [id number] able: RN Notified Lab Interpretation Abnormal (test code = 18051-4) [place] MethodistARRYTHMIA IMPLANT REPORT - [id number] 20:45:31Ordered by an unspecified provider.[facility] duplex venous lower [id number] 20:17:37Hm Interface, Radiology Results Incoming - 03/17/2021 8:20 [...] There is no evidence of deep venous thrombosis.[facility]-[id number] MethodistXR Chest 1 Vw [id number] 16:32:52Hm Interface, Radiology Results 03/17/2021 4:35 PM CDT EXAMINATION: XR CHEST 1 VW PORTABLECLINICAL HISTORY: 40 years Female SOBCOMPARISON: None.IMPRESSION:Lines, tubes, and devices: Right-sided transvenous cardiac pacemaker.Heart and mediastinum: Cardiomediastinal silhouette is normal.Lungs and pleura: There is no focal airspace disease, pleural effusion or pneumothorax.Bones/soft tissues: No acute osseous abnormality.[facility]-[id number] and approved by resident care supervisor/fellow: Cristhian Calixto M.D.I, Jan Scott MD, personally reviewed the images and resident's/fellow's findings and agree with the final report.Beny Bishopist ECG ED Preliminary Interpretation - Not an [id number] 15:36:46 Test Item Value Reference Range Interpretation Comments SOMMER (test code = SOMMER) Hcetor Alvarez III, MD 03/17/2021 11:35 PME ED Preliminary Interpretation - Not an OrderPerformed by: Hector Alvarez III, MDAuthorized by: Hector Alvarez III, MD ECG reviewed by ED Physician in the absence of a drink mixer: yes Interpretation: Interpretation: abnormal Quality: Tracing quality: Limited by artifactRate: ECG rate: 109 ECG rate assessment: tachycardic Rhythm: Rhythm: sinus rhythm and sinus tachycardia Ectopy: Ectopy: none QRS: QRS axis: Normal QRS intervals: NormalConduction: Conduction: normal ST segments: ST segments: Non-specificT waves: T waves: non-specific Lab Interpretation Abnormal (test code = 52829-7) Beny OrtizBasic Metabolic [id number] 07:01:00 Test Item Value Reference Range Interpretation Comments Sodium (test code = 137 meq/L 094-445 2124-2) Potassium (test code = 4.3 meq/L 3.5-5.1 2823-3) Chloride (test code = 104 meq/L 98-107 2075-0) CO2 (test code = 24 meq/L - 2028-9) BUN (test code = 15 mg/dL 04-14 3094-0) Creatinine (test code 0.81 mg/dL 0.57-1.25 = 2160-0) Glucose (test code = 108 mg/dL 70-105 H 2345-7) Calcium (test code = 9.2 mg/dL 8.4-10.2 30987-5) EGFR (test code = 79 mL/min/1.73 sq m [place] [address]-0) NOT ACCURATE CREATININE CLEARANCE IN PREDICTING GLOMERULAR FILTRATION RATE . ESTIMATED GFR I S NOT APPLICABLE FOR DIALYSIS PATIENTS. SOMMER (test code = SOMMER) [facility] Magistrate ID - PIAYA L Lab Interpretation Abnormal (test code = 99377-0) [facility] 07:01:00 Test Item Value Reference Range Interpretation Comments Magnesium (test code = 2.5 mg/dL 1.6-2.6 44753-5) SOMMER (test code = SOMMER) [facility] Magistrate ID - PIAYA L Lab Interpretation (test Normal code = 84965-7) [facility]01[facility]00 Test Item Value Reference Range Interpretation Comments Phosphorus (test code = 4.3 mg/dL 2.3-4.7 2777-1) SOMMER (test code = SOMMER) [facility] Magistrate ID - PIAYA L Lab Interpretation (test Normal code = 20964-7) [facility]ABOLIC [id number] 07:01:00 Test Item Value Reference Range Interpretation [...] S NOT APPLICABLE FOR DIALYSIS PATIEN TS. [facility] Magistrate ID - PIDEANN [id number] 07:01:00 Test Item Value Reference Range Interpretation Comments MAGNESIUM (BEAKER) (test code = 2.5 mg/dL 1.6-2.6 627) [facility] Magistrate ID - PIDEANN [id number] 07:01:00 Test Item Value Reference Range Interpretation Comments PHOSPHORUS (BEAKER) (test code = 4.3 mg/dL 2.3-4.7 604) [facility] Magistrate ID - MACHELLE LCBC with platelet count + automated [id number] 05:37:00 Test Item Value Reference Range Interpretation Comments WBC (test code = 6690-2) 6.8 See_Comment [A utomated message] The system [employer] generated this result transmitted ref erence range: 3.5 - 10 .5 K/L. The refe rence range was not u sed to interpret this result as normal/abnor mal. RBC (test code = 789-8) 5.14 See_Comment [Au tomated message] The system [employer] generated this result transmitted ref erence range: 3.93 - 5 .22 M/L. The refe rence range was not u sed to interpret this result as normal/abnor mal. MCHC (test code = 786-4) 31.6 See_Comment L [A utomated message] The system [employer] generated this result transmitted ref erence range: [...] See_Comment [Aut omated message] 777-3) The system [employer] generated this result transmitted ref erence range: 150 - 45 0 K/CU MM. The referen ce range was not u sed to interpret this result as normal/abnor mal. MPV (test code = 10.0 fL 9.4-12.3 35422-6) nRBC (test code = 413) 0 See_Comment [Aut omated message] The system [employer] generated this result transmitted ref erence range: [...] See_Comment [Aut omated message] 670) The system [employer] generated this result transmitted ref erence range: 1.56 - 6 .13 K/L. The refe rence range was not u sed to interpret this result as normal/abnor mal. # Lymphs (test code = 2.10 See_Comment [Auto mated message] 414) The system [employer] generated this result transmitted ref erence range: 1.18 - 3 .74 K/L. The refe rence range was not u sed to interpret this result as normal/abnor mal. # Monos (test code = 0.48 See_Comment H [Autom ated message] 415) The system [employer] generated this result transmitted ref erence range: 0.24 - 0 .36 K/L. The refe rence range was not u sed to interpret this result as normal/abnor mal. # Eos (test code = 416) 0.26 See_Comment [Au tomated message] The system [employer] generated this result transmitted ref erence range: 0.04 - 0 .36 K/L. The refe rence range was not u sed to interpret this result as normal/abnor mal. # Baso (test code = 417) 0.04 See_Comment [A utomated message] The system [employer] generated this result transmitted ref erence range: 0.01 - 0 .08 K/L. The refe rence range was not u sed to interpret this result as normal/abnor mal. Immature 1 % 0-1 Granulocytes-Relative (test code = 2801) Lab Interpretation (test Abnormal code = 05033-6) [facility] W/PLT COUNT & AUTO [id number] 05:37:00 Test Item Value Reference Range Interpretation [...] code = 2801) MR, MRA, BRAIN, WITHOUT [id number] 16:54:00Reason for exam:->Ischemic Stroke [facility] : 1980 Sex: FFINAL REPORT MR, BRAIN, WITHOUT CONTRAST, MR, MRA, BRAIN, WITHOUT CONTRAST, MR, MRA, NECK, WITHOUT IV CONTRAST INDICATION: Stroke, follow upIschemic Stroke Evaluation TECHNIQUE: Multiplanar, multisequence MR imaging of the brain without intravenous contrast.MRA of the head utilizing 3-D vipn-jk-oqvgoj technique, with 3-D reconstructions.MRA of the neck utilizing 2-D and 3-D vkyv-gu-taakfu technique, with 3-D reconstructions. COMPARISON: MRI and [...] 02/11/2021 16:54:16 MR, MRA, NECK, WITHOUT IV [id number] 16:54:00Reason for exam:->[facility]schemic Stroke Evaluation [facility] : 1980 Sex: FFINAL REPORT MR, BRAIN, WITHOUT CONTRAST, MR, MRA, BRAIN, WITHOUT CONTRAST, MR, MRA, NECK, WITHOUT IV CONTRAST INDICATION: Stroke, follow upIschemic Stroke Evaluation TECHNIQUE: Multiplanar, multisequence MR imaging of the brain without intravenous contrast.MRA of the head utilizing 3-D rytl-ms-gnebjq technique, with 3-D reconstructions.MRA of the neck utilizing 2-D and 3-D inql-jo-itfhlv technique, with 3-D reconstructions. COMPARISON: MRI and [...] Lakshmi Amadoreport Verified Date/Time: 02/11/2021 16:54:16 MR, BRAIN, WITHOUT [id number] 16:54:00Reason for exam:->Ischemic Stroke Evaluation [facility] : 1980 Sex: FFINAL REPORT MR, BRAIN, WITHOUT CONTRAST, MR, MRA, BRAIN, WITHOUT CONTRAST, MR, MRA, NECK, WITHOUT IV CONTRAST INDICATION: Stroke, follow upIschemic Stroke Evaluation TECHNIQUE: Multiplanar, multisequence MR imaging of the brain without intravenous contrast.MRA of the head utilizing 3-D xqon-ik-uuwmxu technique, with 3-D reconstructions.MRA of the neck utilizing 2-D and 3-D ipja-cv-hypnuy technique, with 3-D reconstructions. COMPARISON: MRI and [...] Date/Time: 02/11/2021 16:54:16 MR brain without IV [id number] 16:54:00Interface, External Ris In - 02/11/2021 4:56 PM CDTFINAL REPORT MR, BRAIN, WITHOUT CONTRAST, MR, MRA, BRAIN, WITHOUT CONTRAST, MR, MRA, NECK, WITHOUT IV CONTRAST INDICATION: Stroke, follow upIschemic Stroke Evaluation TECHNIQUE: Multiplanar, multisequence MR imaging of the brain without intravenous contrast.MRA of the head utilizing 3-D rrsj-ig-vulbug technique, with 3-D reconstructions.MRA of the neck utilizing 2-D and 3-D vkub-zi-jgtygj technique, with 3-D reconstructions. COMPARISON: MRI and [...] Signed: Lakshmi Amador Verified Date/Time: 02/11/2021 16:54:16 [facility] HospitalMRA head without IV [id number] 16:54:00Interface, External Ris In - 02/11/2021 4:56 PM CDTFINAL REPORT MR, BRAIN, WITHOUT CONTRAST, MR, MRA, BRAIN, WITHOUT CONTRAST, MR, MRA, NECK, WITHOUT IV CONTRAST INDICATION: Stroke, follow upIschemic Stroke Evaluation TECHNIQUE: Multiplanar, multisequence MR imaging of the brain without intravenous contrast.MRA of the head utilizing 3-D mphs-ls-mqznqw technique, with 3-D reconstructions.MRA of the neck utilizing 2-D and 3-D oppr-wr-beljtm technique, with 3-D reconstructions. COMPARISON: MRI and [...] within the head and neck. Signed: [facility]shmi [facility]adorboth[facility] Verified Date/Time: 02/11/2021 16:54:16 [facility] HospitalMRA neck without IV [id number] 16:54:00Interface, External Ris In - 02/11/2021 4:56 PM CDTFINAL REPORT MR, BRAIN, WITHOUT CONTRAST, MR, MRA, BRAIN, WITHOUT CONTRAST, MR, MRA, NECK, WITHOUT IV CONTRAST INDICATION: Stroke, follow upIschemic Stroke Evaluation TECHNIQUE: Multiplanar, multisequence MR imaging of the brain without intravenous contrast.MRA of the head utilizing 3-D vlvy-ko-gfkhbw technique, with 3-D reconstructions.MRA of the neck utilizing 2-D and 3-D kzul-in-kesefp technique, with 3-D reconstructions. COMPARISON: MRI and [...] Signed: Lakshmi Amadoreport Verified Date/Time: 02/11/2021 16:54:16 [facility] HospitalRPR2021-05-20 14:02:00 Test Item Value Reference Range Interpretation Comments RPR (test code = 58428-3) Nonreactive Nonreactive Lab Interpretation (test code = Normal 88902-5) [facility] HospitalRPR2021-[facility]-20 14:02:00 Test Item Value Reference Range Interpretation Comments RPR SCREEN (BEAKER) (test code = Nonreactive Nonreactive 420) Hemoglobin [id number] 09:35:00 Test Item Value Reference Range Interpretation Comments Hemoglobin A1C (test code = 4548-4) 6.0 % 4.3-6.1 Lab Interpretation (test code = Normal 34066-6) [facility] HospitalHEMOGLOBIN [id number] 09:35:00 Test Item Value Reference Range Interpretation Comments HEMOGLOBIN A1C (BEAKER) (test code = 6.0 % 4.3-6.1 368) Rapid drug screen, [id number] 07:26:00 Test Item Value Reference Range Interpretation Comments Barbiturate Screen Negative Negative (test code = 34118-9) Benzodiazepine Screen Negative Negative (test code = 03238-0) Cocaine (Metab.) Negative Negative Screen (test code = 3397-7) Methadone Screen (test Negative Negative code = 77614-4) Opiate Screen (test Negative Negative code = 31806-3) Cannabinoid Screen Negative Negative (test code = 19789-4) Amph/Methamph Screen Negative Negative (test code = 47685-0) Phencyclidine Screen Negative Negative (test code = 13715-8) pH, UA (test code = 6.5 5.0-8.0 5803-2) SOMMER (test code = SOMMER) DRUG CUTOFF CONC.Cocaine 300 ng/mL Cannabinoid 50 ng/mLBenzodiazepine 200 ng/mLBarbiturate 200 ng/mLPhencyclidine 25 ng/mLOpiate 300 ng/mLMethadone 300 ng/mLAmphetamine/ 1000 ng/mL Methamphetamine This assay provides an unconfirmed qualitative test result for the clinical management of patients in emergency situations. Chain of custody not maintained. Some kxyi-vgt-dkjmpuw medications, as well as adulterants, may cause inaccurate results. Clinical correlation should be applied. A more comprehensive drug screen or confirmation of a detected drug may be performed upon request.[facility] Magistrate ID - VIET M Lab Interpretation Normal (test code = 86655-4) [facility] HospitalRAPID DRUG SCREEN, [id number] 07:26:00 Test Item Value Reference Range Interpretation [...] situations. Chain of custody not maintained. Some svtt-lzh-oxlqmrh medications, as well as adulterants, may cause inaccurate results. Clinical correlation should be applied. A more comprehensivedrug screen or confirmation of a detected drug may be performed upon request.[facility] Magistrate ID - VIET MUrinalysis with Microscopic If [id number] 07:11:00 Test Item Value Reference Range Interpretation Comments Color, UA (test code = Light Yellow 5778-6) Clarity, UA (test code = Clear 5767-9) Specific [place], UA (test 1.012 1.001-1.035 code = 5811-5) pH, UA (test code = 6.5 5.0-8.0 5803-2) Protein, UA (test code = Negative Negative 01123-3) Glucose, UA (test code = Negative Negative 365) Ketones, UA (test code = Negative Negative 2514-8) Bilirubin, UA (test code = Negative Negative 11930-5) Blood, UA (test code = Small Negative A 62018-5) Nitrite, UA (test code = Negative Negative 5802-4) Leukocytes, UA (test code Small Negative A = 5799-2) Urobilinogen, UA (test 0.2 mg/dL 0.2-1 code = 38381-6) Specimen Source (test code = 2795) SOMMER (test code = SOMMER) [facility] Magistrate ID - [auto][facility] Magistrate ID - tech Lab Interpretation (test Abnormal code = 42151-6) [facility] HospitalUrinalysis Microscopic [id number] 07:11:00 Test Item Value Reference Range Interpretation Comments RBC, UA (test 11 See_Comment [Automated me ssage] code = 37362-5) The system [facility] generated this result transmitted ref erence range: /HPF. Th e reference range was not used to int erpret this result as normal/abnormal . WBC, UA (test 11 See_Comment [Automated me ssage] code = 5821-4) The system [facility] generated this result transmitted ref erence range: /HPF. Th e reference range was not used to int erpret this result as normal/abnormal . Mucus (test Rare code = 8247-9) Squam Epithel, 3 See_Comment [Automated m essage] UA (test code = The system w [facility] 47971-3) generated this result transmitted ref erence range: /HPF. Th e reference range was not used to int erpret this result as normal/abnormal . SOMMER (test code [facility] Magistrate ID - tech = SOMMER) [facility] HospitalURINALYSIS WITH MICROSCOPIC IF [id number] 07:11:00 Test Item Value Reference Range Interpretation [...] = 463) SOURCE(BEAKER) (test code = 2795) [facility] Magistrate ID - [auto][facility] Magistrate ID - techURINALYSIS [id number] 07:11:00 Test Item Value Reference Range Interpretation Comments RBC UA (BEAKER) (test code = 519) 11 /HPF WBC UA (BEAKER) (test code = 520) 11 /HPF MUCUS (BEAKER) (test code = 1574) Rare SQUAMOUS EPITHELIAL (BEAKER) (test 3 /HPF code = 516) [facility] Magistrate ID - techDigoxin [id number] 06:22:00 Test Item Value Reference Range Interpretation Comments Digoxin Lvl (test code = <0.30 0.8-2 L 42851-6) SOMMER (test code = SOMMER) [facility] Magistrate ID - MACHELLE L Lab Interpretation (test Abnormal code = 83417-3) [facility] HospitalDIGOXIN [id number] 06:22:00 Test Item Value Reference Range Interpretation Comments DIGOXIN LEVEL (BEAKER) (test code = < ng/mL 0.80-2.00 L 669) [facility] Magistrate ID - MACHELLE [id number] 05:58:00 Test Item Value Reference Range Interpretation Comments Homocysteine (test code = 7.3 umol/L 5.1-15.4 22004-8) SOMMER (test code = SOMMER) [facility] Magistrate ID Jodie CARTY L Lab Interpretation (test Normal code = 74818-5) [facility] HospitalTSH/Free T4 If [id number] 05:58:00 Test Item Value Reference Range Interpretation Comments TSH (test code = 4.368 See_Comment [Automated 49413-2) message] The system which generated this result transmit aida reference range : 0.350 - 4.940 uIU/mL. The reference range was not used to interpret this result as normal/abnormal . SOMMER (test code = SOMMER) [facility] Magistrate ID Jodie CARTY L Lab Interpretation Normal (test code = 53031-6) [facility] HospitalVitamin B12 and [id number] 05:58:00 Test Item Value Reference Range Interpretation Comments Vitamin B12 (test 557 pg/mL 213-816 code = 2132-9) Folate (test code = 11.20 ng/mL See_Comment [Automa aida 2284-8) message] The system which generated this result transmit aida reference range : >=7.00. The reference range was not used to interpret this result as normal/abnormal . SOMMER (test code = SOMMER) [facility] Magistrate ID Jodie CARTY L Lab Interpretation Normal (test code = 78052-9) [facility] HospitalHOMOCYSTEINE2021-05-20 05:58:00 Test Item Value Reference Range Interpretation Comments HOMOCYSTEINE (BEAKER) (test code = 7.3 umol/L 5.1-15.4 642) [facility] Magistrate ID Jodie CARTY LTSH/FREE T4 IF [id number] 05:58:00 Test Item Value Reference Range Interpretation Comments THYROID STIMULATING HORMONE 4.368 uIU/mL 0.350-4.940 (BEAKER) (test code = 772) [facility] Magistrate ID Jodie CARTY LVITAMIN B12 AND [id number] 05:58:00 Test Item Value Reference Range Interpretation Comments VITAMIN B12 557 pg/mL 213-816 (BEAKER) (test code = 774) FOLATE (BEAKER) 11.20 ng/mL See_Comment [Automated message] (test code = 362) The system which generated this result transmitted ref erence range: >=7.00. The reference range was not used to interpr et this result as normal/abnormal . [facility] Magistrate ID Jodie CARTY LC-Reactive [id number] 04:54:00 Test Item Value Reference Range Interpretation Comments CRP (test code = 676) 0.81 mg/dL 0-0.5 H SOMMER (test code = SOMMER) [facility] Magistrate ID - MACHELLE L Lab Interpretation (test Abnormal code = 02969-5) [facility] HospitalMAGNESIUM2021-05-20 04:54:00 Test Item Value Reference Range Interpretation Comments MAGNESIUM (BEAKER) 2.1 mg/dL 1.6-2.6 Specimen slightly (test code = 627) hemolyzed [facility] Magistrate ID - MACHELLE [id number] 04:54:00 Test Item Value Reference Range Interpretation Comments PHOSPHORUS (BEAKER) 4.3 mg/dL 2.3-4.7 Specimen slightly (test code = 604) hemolyzed [facility] Magistrate ID - MACHELLE LBASIC METABOLIC [id number] 04:54:00 Test Item Value Reference Range Interpretation [...] S NOT APPLICABLE FOR DIALYSIS PATIEN TS. [facility] Magistrate ID - MACHELLE LC-REACTIVE [id number] 04:54:00 Test Item Value Reference Range Interpretation Comments C-REACTIVE PROTEIN (BEAKER) (test 0.81 mg/dL 0.00-0.50 H code = 676) [facility] Magistrate ID Jodie CARTY LCBC W/PLT COUNT & AUTO [id number] 02:54:00 Test Item Value Reference Range Interpretation [...] = 2801) RAD, CHEST, 1 VIEW, NON [id number] 22:40:00Reason for exam:->strokeShould this be performed at the bedside?->Yes [facility] : 1980 Sex: FFINAL REPORT RAD, CHEST, 1 VIEW, NON DEPT TECHNIQUE: Frontal view(s) of the chest. INDICATION: stroke. COMPARISON: 08/20/2018 chest radiograph FINDINGS/IMPRESSION: Lines/Tubes: Unchanged 2-lead pacemaker Lungs/pleura: No focal consolidation or definite interstitial pulmonary edema. No pleural effusion. No pneumothorax. Heart and Mediastinum: Unremarkable. Soft Tissues and Bones: Unremarkable. Signed: Wilmer Nieves Verified Date/Time: 02/10/2021 22:40:02 Reading Location: [address] Transitional Reading Room XR chest 1 view portable / [id number] 22:40:00Interface, External Ris In - 02/10/2021 10:42 [...] Nieves Verified Date/Time: 02/10/2021 22:40:02 Reading Location: [address] Transitional Reading Room [facility] W/PLT COUNT & AUTO [id number] 22:16:00 Test Item Value Reference Range Interpretation [...] Range Interpretation Comments BNP (test code = 80645-7) <10 0-100 SOMMER (test code = SOMMER) [facility] Magistrate ID - BS Lab Interpretation (test Normal code = 12276-6) [facility] HospitalB-TYPE NATRIURETIC FACTOR (BNP)2021-02-10 22:04:00 Test Item Value Reference Range Interpretation Comments B-TYPE NATRIURETIC PEPTIDE (BEAKER) < pg/mL 0-100 (test code = 700) [facility] Magistrate ID - BSHigh Sensitivity Troponin I ([facility]/[place]aley Only)2021-02-10 21:57:00 Test Item Value Reference Range Interpretation Comments Troponin I HS <4 See_Comment [Automated (test code = message] The 71515-1) system which generated this result transmitted reference range : <=17 pg/ml. The reference range was not used to interpret this result as normal/abnormal . SOMMER (test code = [facility] Magistrate ID - SOMMER) BSThe DEPUTY TREASURER STAT High Sensitivity Troponin-I results should be used in conjunction with other diagnostic information such as ECG, clinical observations and information, and patient symptoms to aid in the diagnosis of VT. Lab Interpretation Normal (test code = 54252-8) [facility] HospitalHIGH SENSITIVITY TROPONIN [id number] 21:57:00 Test Item Value Reference Range Interpretation Comments HIGH SENSITIVITY < pg/ml See_Comment [Automated message] TROPONIN I (test code = The system which 4269580) generated this result transmitted ref erence range: <=17. Th e reference range was not used to interpr et this result as normal/abnormal . [facility] Magistrate ID - BSThe DEPUTY TREASURER STAT High Sensitivity Troponin-I results should be used in conjunctionwith other diagnostic information such as ECG, clinical observations and information, and patient symptoms to aid in the diagnosis of VT.Lipid [id number] 21:54:00 Test Item Value Reference Range Interpretation Comments Triglycerides (test 171 mg/dL Specimen code = 2571-8) markedly hemolyzed Cholesterol (test 218 mg/dL Specimen code = 2093-3) markedly hemolyzed HDL (test code = 47 mg/dL 2084-9) LDL Calculated (test 137 mg/dL code = 32212-3) SOMMER (test code = Triglyceride SOMMER) Reference Range: Low Risk <150 Borderline 150-199 High Risk 200-499 Very High Risk >=500 Cholesterol Reference Range: Low Risk <200 Borderline 200-239 High Risk >240 HDL Cholesterol Reference Range: Low Risk >=60 High Risk <40 LDL Cholesterol Reference Range: Optimal <100 Near Optimal 100-129 Borderline 130-159 High 160-189 Very High >=[address] Magistrate ID - BS [facility] HospitalLIPID [id number] 21:54:00 Test Item Value Reference Range Interpretation [...] Borderline 130-159 High 160-189 Very High >=[address] Magistrate ID - BSComprehensive metabolic [id number] 21:52:00 Test Item Value Reference Range Interpretation Comments Protein, Total 8.0 See_Comment Specimen slig htly (test code = hemolyzed 2885-2) [Automated message] The system which generated this result transmit aida reference range : 6.0 - 8.3 gm/dL . The reference range was not u sed to interpret th is result as normal/abnormal . Albumin (test code 4.2 g/dL 3.5-5 Specimen slightly = 55415-0) hemolyzed Alkaline 135 U/L 40-150 Phosphatase (test code = 6768-6) Total Bilirubin 0.2 mg/dL 0.2-1.2 Specimen sli ghtly (test code = hemolyzed 1974-2) Sodium (test code = 139 meq/L 828-819 4519-2) Potassium (test 4.5 meq/L 3.5-5.1 Specimen sli ghtly code = 2823-3) hemolyzed Chloride (test code 103 meq/L 98-107 = 2075-0) CO2 (test code = 25 meq/L 22-29 2027-9) BUN (test code = 9 mg/dL 7-21 3094-0) Creatinine (test 0.78 mg/dL 0.57-1.25 [facility]imen [facility] code = 2160-0) hemolyzed Glucose (test code 105 mg/dL 70-105 = 2345-7) Calcium (test code 9.6 mg/dL 8.4-10.2 = 28488-9) AST (test code = 28 U/L 5-34 [facility] hemolyzed ALT (test code = 52 U/L 6-55 [facility] 17[facility] hemolyzed EGFR (test code = 82 mL/min/1.73 [place] [address]-1) NOT ACCURATE CREATININE CLEARANCE IN PREDICTING GLOMERULAR FILTRATION RATE . ESTIMATED GFR I S NOT APPLICABLE FOR DIALYSIS PATIEN TS. SOMMER (test code = [facility] Magistrate ID - BS SOMMER) [facility] HospitalCreatine Kinase (CK)2021-02-10 21:52:00 Test Item Value Reference Range Interpretation Comments Total CK (test code = 70 U/L 29-200 2157-6) SOMMER (test code = SOMMER) [facility] Magistrate ID - BS Lab Interpretation (test Normal code = 66712-0) [facility] HospitalMAGNESIUM2021-05-19 21:52:00 Test Item Value Reference Range Interpretation Comments MAGNESIUM (BEAKER) 2.2 mg/dL 1.6-2.6 Specimen slightly (test code = 627) hemolyzed [facility] Magistrate ID - [id number] 21:52:00 Test Item Value Reference Range Interpretation Comments PHOSPHORUS (BEAKER) 4.4 mg/dL 2.3-4.7 Specimen slightly (test code = 604) hemolyzed [facility] Magistrate ID - BSCOMPREHENSIVE METABOLIC [id number] 21:52:00 Test Item Value Reference Range Interpretation [...] S NOT APPLICABLE FOR DIALYSIS PATIEN TS. [facility] Magistrate ID - BSCREATINE KINASE (CK)2021-02-10 21:52:00 Test Item Value Reference Range Interpretation Comments CREATINE KINASE TOTAL (BEAKER) (test 70 U/L 29-200 code = 380) [facility] Magistrate ID - [id number] 21:46:00 Test Item Value Reference Range Interpretation Comments PTT (test code = 11627-9) 30.5 See_Comment [ Automated message] The system whic h generated this result transmitted ref erence range: 22.5 - 3 6.0 seconds. The re ference range was not u sed to interpret this result as normal/abnor mal. Lab Interpretation (test Normal code = 80118-5) [facility] HospitalLactic acid, [id number] 21:46:00 Test Item Value Reference Range Interpretation Comments Lactate, Venous (test 1.96 mmol/L 0.5-2.2 Specim en code = 2872) markedly hemolyzed SOMMER (test code = SOMMER) [facility] Magistrate ID - BS Lab Interpretation Normal (test code = 42476-1) [facility] HospitalAPTT2021-05-19 21:46:00 Test Item Value Reference Range Interpretation Comments PARTIAL THROMBOPLASTIN TIME 30.5 seconds 22.5-36.0 (BEAKER) (test code = 760) LACTIC ACID, [id number] 21:46:00 Test Item Value Reference Range Interpretation Comments LACTATE BLOOD VENOUS 1.96 mmol/L 0.50-2.20 Specime n markedly (2) (BEAKER) (test hemolyzed code = 2872) [facility] Magistrate ID - BSProthrombin time/[id number] 21:45:00 Test Item Value Reference Interpretation Comments Range Protime (test code = 12.7 See_Comment [Autom ated 0872-2) message] The system which generated this result transmitted reference range : 11.9 - 14.2 seconds. The reference range was not used to interpret this result as normal/abnormal . INR (test code = 0.98 See_Comment [Automated 3251-6) message] The system which generated this result [...] valves. Lab Interpretation Normal (test code = 12560-7) [facility][id number] 21:45:00 Test Item Value Reference Range Interpretation Comments PROTIME (BEAKER) 12.7 seconds 11.9-14.2 (test code = 759) INR (BEAKER) (test 0.98 See_Comment [Automat ed message] code = 370) The system [employer] generated this result transmitted ref erence range: <=5.90. The reference range was not used to int erpret this result as normal/abnormal . RECOMMENDED COUMADIN/WARFARIN INR THERAPY RANGESSTANDARD DOSE: 2.0 - 3.0 Includes: PROPHYLAXIS forvenous thrombosis, systemic embolization; TREATMENT for venous thrombosis and/or pulmonary embolus.HIGH RISK: Target INR is 2.5-3.5 for patients with mechanical heart valves.POC-Glucose [id number] 21:39:00 Test Item Value Reference Range Interpretation Comments POC-Glucose Meter (test 93 mg/dL 70-110 : TE STED AT [facility] code = 1538) [address] [place], [address]: [address] Magistrate/Techni rhonda ID = [id number] for AILYN JAVIER A Lab Interpretation (test Normal code = 70719-0) [facility] [id number] 21:39:00 Test Item Value Reference Range Interpretation Comments POC-GLUCOSE METER 93 mg/dL 70-110 : TESTED A T [facility] 6720 (BEAKER) (test code = AYLIN Rivera [facility], 1538) [address]: [address] Magistrate/Techni rhonda ID = [id number] for VALENCIA SGERTRUDE [id number] 15:45:00 Test Item Value Reference Range Interpretation Comments SURG (test code = SURG) RUN DATE: 09/30/20 [facility] - LAB PAGE 1 RUN TIME: 1545 Specimen Inquiry RUN USER: INTERFACE PATIENT: ADAM MARSH LOC: TerranceCRISTOBAL U #: [id number] AGE/SX: 40/F ROOM: RE09/29/20REG DR: Linus Boone MD : 81 BED: DIS: STATUS: [place] [facility] [place]: SPEC #: PMC:S RECD: 09/29/20 STATUS: MACIEL REQ #: [id number] WU: 09/29/[address]: Linus Boone MD ENTERED: 09/29/20 SP TYPE: SURG OTHR DR: Undefined Provider ORDERED: SURG PATH LVL 4 COPIES TO: Linus Boone MD [address] [place] [address] [id number] Undefined Provider HISTOLOGY: TISSUE ID BLK PCS DHIRAJ LEV PROCEDURE DISPOSITION ____ ___ ___ ___ STOMACH, NOS A 1 2 PROCEDURES: SURG PATH LVL 4 (09/29/20-1244) TISSUES: A. STOMACH, NOS - GASTRIC BIOPSY CLINICAL HISTORY R10.13, K21.9, K92.0, R14.0, R11.2, R19.7, R19.4 CPT CODES CPT CODE(S): 96106 , , , , , , FINAL DIAGNOSIS Stomach, biopsy: MILD CHRONIC GASTRITIS NEGATIVE FOR INTESTINAL METAPLASIA, DYSPLASIA, OR MALIGNANCY NEGATIVE FOR HELICOBACTER PYLORI ORGANISMS GROSS DESCRIPTION Gastric biopsy. Received in formalin are two wilkinson tissue fragments, 0.4 cm each, all as A. bk/nr Grossing performed at [facility] Pathology, [address] [place] [address], [address], [place] [address]. Security Advisor: Aditya Hanson M.D. CONTINUED ON NEXT PAGE RUN DATE: 09/30/[address] [facility] [place] [place] PAGE 2 RUN TIME: 1545 Specimen Inquiry RUN USER: INTERFACE SPEC #: [facility]:[id number]-11- PATIENT: ADAM MARSH #[id number] (Continued) MICROSCOPIC DESCRIPTION Gastric biopsy. Sections demonstrate gastric mucosa with mild chronic inflammation. No dysplasia or malignancy is identified. No evidence of Helicobacter pylori organisms or intestinal metaplasia is seen. Signed SIGNATURE ON FILE Hector Issa 09/30/20 1545 END OF REPORT COVID 19 INHOUSE [id number] 13:41:00 Test Item Value Reference Range Interpretation Comments COVID 19 INHOUSE AG NEGATIVE Negative Per [facility] facturer, (test code = negative result s should [id number]) be treated aspr esumptive and, if inconsi [...] symptoms co nsistent with COVID-19. BASIC METABOLIC [id number] 13:40:00 Test Item Value Reference Range Interpretation [...] MG/DL 8.5-10.1 N - XR CHEST 1 [id number] 13:33:00 [facility] 1980 Sex: F Name: ADAM MARSH [facility] : [birth year] Age/S: 40 / F [address] [facility] [address] Unit #: [id number] Loc: [place] [address] Phys: Linus Boone MD Acct: [id number] Dis Date: Status: PRE [facility] [place]ONE #: [phone] Exam Date: 09/28/2020 1326 FAX #: Reason: PREOP EXAMS: CPT: [id number] XR CHEST 1 V 96484 Fluoro Time: DAP (Gy m2): Air Kerma [...] PAGE 1 Signed Report Name: ADAM MARSH [facility] : 1980 Age/S: 40 / F [address] [place] [address] Unit #: [id number] Loc: [place] [address] Phys: Linus Boone MD Acct: [id number] Dis Date: Status: PRE SDC PHONE #: [phone] Exam Date: 09/28/2020 1326 FAX #: Reason: PREOP EXAMS: CPT: [id number] XR CHEST 1 V 41674 Fluoro Time: DAP (Gy m2): Air Kerma (mGy): <Continued> Technologist: Shari Davila RT(R)(CT) Trnscb Date/Time: 09/28/2020 (7333) t16 Orig Print D/T: S: 09/28/2020 (1042) PAGE 2 SignedReportPROTHROMBIN [id number] 13:29:00 Test Item Value Reference Range Interpretation Comments PT PATIENT (test code = PTP) 10.6 SECONDS 9.3-12.9 N INTERNATIONAL NORMAL RATIO 0.95 INR Unit 0.8-1.2 N (test code = INR) THROMBOPLASTIN TIME [id number] 13:29:00 Test Item Value Reference Range Interpretation Comments THROMBOPLASTIN TIME PARTIAL 28.0 SECONDS 26-35 N (test code = PTT) CBC W/AUTO [id number] 13:26:00 Test Item Value Reference Range Interpretation [...] code NO DIFF/SCN CRITERIA = MDIFF) POCT-GLUCOSE [id number] 10:22:00 Test Item Value Reference Range Interpretation Comments POC-GLUCOSE METER 102 mg/dL 70-110 TESTED AT [facility] 6720 (ARNOL) (test code = AYLIN TAVERA 1534) [address] MR, MRA, BRAIN, WITHOUT [id number] 09:32:00Reason for exam:->Ischemic Stroke EvaluationFINAL REPORT MRA Head CLINICAL HISTORY: Ischemic Stroke TECHNIQUE: MRA of the head utilizing 3-D ksxd-vs-lidfgh technique, with 3-D reconstructions. COMPARISON: None FINDINGS: There is no evidence of intracranial aneurysm, focal stenosis, or major branch vessel occlusion. IMPRESSION: No evidence for a major [place] of [place] proximal branch vessel occlusion. MRA Neck CLINICAL HISTORY: Ischemic Stroke TECHNIQUE: MRA of the neck utilizing 2-D and 3-D eokg-bn-fufxww technique, with 3-D reconstructions. COMPARISON: None FINDINGS: The carotid arteries in the neck are patent including their bifurcations. There is antegrade flow in the vertebral arteries in the neck. IMPRESSION: No evidence of hemodynamically significant stenosis in the cervical carotid or vertebral arteries by NASCET criteria. Signed: Santos Winn Verified Date/Time: 08/21/2018 09:32:09 Reading Location: [address] Neuro Reading Room MR, MRA, NECK, WITHOUT IV [id number] 09:32:00Reason for exam:->Ischemic Stroke EvaluationFINAL REPORT MRA Head CLINICAL HISTORY: Ischemic Stroke TECHNIQUE: MRA of the head utilizing 3-D uned-hv-bxntld technique, with 3-D reconstructions. COMPARISON: None FINDINGS: There is no evidence of intracranial aneurysm, focal stenosis, or major branch vessel occlusion. IMPRESSION: No evidence for a major [place] of [place] proximal branch vessel occlusion. MRA Neck CLINICAL HISTORY: Ischemic Stroke TECHNIQUE: MRA of the neck utilizing 2-D and 3-D vvig-pk-wkdhai technique, with 3-D reconstructions. COMPARISON: None FINDINGS: The carotid arteries in the neck are patent including their bifurcations. There is antegrade flow in the vertebral arteries in the neck. IMPRESSION: No evidence of hemodynamically significant stenosis in the cervical carotid or vertebral arteries by NASCET criteria. Signed: Santos Winn Verified Date/Time: 08/21/2018 09:32:09 Reading Location: [facility] C013V Neuro Reading Room MR, BRAIN, WITHOUT [id number] 09:25:00Reason for exam:- >Ischemic Stroke EvaluationFINAL REPORT [...] Acute on chronic pansinusitis. Signed: Santos Winn MDReport Verified Date/Time: 08/21/2018 09:25:25 Reading Location: [facility] C013V Neuro R eading Room POCT-GLUCOSE [id number] 21:26:00 Test Item Value Reference Range Interpretation Comments POC-GLUCOSE METER 119 mg/dL 70-110 H TESTED AT [place] [address] ([facility]) (test code = AYLIN [place] 1538) [address] POCT-GLUCOSE [id number] 18:03:00 Test Item Value Reference Range Interpretation Comments POC-GLUCOSE METER 119 mg/dL 70-110 H TESTED AT [place] [address] ([facility]) (test code = AYLIN Rivera [facility] 1538) [address] POCT-GLUCOSE [id number] 12:39:00 Test Item Value Reference Range Interpretation Comments POC-GLUCOSE METER 120 mg/dL 70-110 H TESTED AT [place] [address] ([facility]) (test code = AYLIN Rivera [facility] 1538) [address] RAD, CHEST, 1 VIEW, NON [id number] 12:04:00Reason for exam:->To Locate Heart Device (Pacemaker)Should [...] .Additional findings: None. Signed: JR Jose, Caden MDReport Verified Date/Time: 08/20/2018 12:04:06 Reading Location: [facility] Radiology Reading Room POCT-GLUCOSE [id number] 09:17:00 Test Item Value Reference Range Interpretation Comments POC-GLUCOSE METER 121 mg/dL 70-110 H TESTED AT [facility] [address] ([facility]) (test code = AYLIN Rivera [facility] 1538) [address] BASIC METABOLIC [id number] 06:56:00 Test Item Value Reference Range Interpretation [...] NOT APPLICABLE FOR DIALYSIS PATIEN TS. POCT-GLUCOSE [id number] 21:09:00 Test Item Value Reference Range Interpretation Comments POC-GLUCOSE METER 109 mg/dL 70-110 TESTED AT [facility] 67[address] (BEAKER) (test code = AYLIN Rivera [place] 1538) [address] POCT-GLUCOSE [id number] 17:15:00 Test Item Value Reference Range Interpretation Comments POC-GLUCOSE METER 117 mg/dL 70-110 H TESTED AT [facility] 6720 (BEAKER) (test code = AYLIN Rivera [place] 1538) [address] VITAMIN B12 AND [id number] 06:39:00 Test Item Value Reference Range Interpretation Comments VITAMIN B12 (BEAKER) (test code = 524 pg/mL 213-816 774) FOLATE (BEAKER) (test code = 362) 13.5 ng/mL >=7.0 BASIC METABOLIC [id number] 05:48:00 Test Item Value Reference Range Interpretation [...] S NOT APPLICABLE FOR DIALYSIS PATIEN TS. [id number] 15:42:00 Test Item Value Reference Range Interpretation Comments RPR SCREEN (BEAKER) (test code = Nonreactive Nonreactive 420) HEMOGLOBIN [id number] 09:14:00 Test Item Value Reference Range Interpretation Comments HEMOGLOBIN A1C (BEAKER) (test code = 5.3 % 4.3-6.1 368) TSH/FREE T4 IF [id number] 04:49:00 Test Item Value Reference Range Interpretation Comments THYROID STIMULATING HORMONE 3.18 uIU/mL 0.35-4.94 (BEAKER) (test code = 772) BASIC METABOLIC [id number] 04:38:00 Test Item Value Reference Range Interpretation [...] NOT APPLICABLE FOR DIALYSIS PATIEN TS. LIPID [id number] 04:38:00 Test Item Value Reference Range Interpretation [...] 130-159 High 160-189 Very High >=190HEPATIC FUNCTION [id number] 04:38:00 Test Item Value Reference Range Interpretation [...] (test code = 413) AFB Culture and [id number] 13:24:00Specimen/Source: Wound/PACEMAKERCollected: 09/05/2017 19:45 Status: Final Last Updated: 11/01/2017 13:24 UXI-Lphar-Hispxkffgzaj (Final) (Final) 09/07/17 No acid fast bacill seen on direct smear Culture Result (Final) (Final) 11/01/17 No growth of AFB at six (6) weeksFungus Culture with [id number] 12:12:00 Specimen/Source: Wound/PACEMAKERCollected: 09/05/2017 19:45 Status: Final Last Updated: 10/22/2017 12:12 Fungal Smear Result (Final) (Final) 09/06/17 No yeast or hyphae seen Culture Result (Final) (Final) 10/22/17 No fungus isolated at 6 weeksCulture, Blood [id number] 08:23:00Specimen: BloodCollected: 09/04/2017 20:30 Status: Final Last Updated: 09/10/2017 08:23 Culture Result (Final) (Final) No Growth After 5 DaysCulture, Blood [id number] 08:23:00Specimen: BloodCollected: 09/04/2017 20:15 Status: Final Last Updated: 09/10/2017 08:23 Culture Result (Final) (Final) No Growth After 5 DaysCulture, Wound [id number] 08:52:00Specimen: WoundCollected: 09/05/2017 19:45 Status: Final Last Updated: 09/08/2017 08:52 Gram Stain (Final) (Final) 09/06/17 No organisms seen, Few WBC's Culture Result (Final) (Final) 09/08/17 Anaerobic culture:No anaerobes isolated at 3 days Isolate (Final) (Final) 09/07/17Few Staph-coag positive Isolate Staph-coag positive JERMAINE (mcg/ml) Amoxicillin/Clav (AUG)<=4/2 Susceptible Ampicillin (AM) >8 Resistant Ampicillin/Sulb (A/S) <=8/4 Susceptible Cefazolin (CFZ) <=4 Susceptible Ceftriaxone (SUPPLY CHAIN MANAGER) <=4 Susceptible Chloramphenicol (C) <=8 Susceptible Ciprofloxacin (CP) <=1 Susceptible Clindamycin (CM) 0.5 Susceptible Erythromycin (E) <=0.25 Susceptible Gentamicin (GM) <=1 Susceptible Imipenem (IMP) <=4 Susceptible Levofloxacin (LEV) <=0.5 Susceptible Linezolid (LNZ) 4 Susceptible Oxacillin (OX1) 0.5 Susceptible Penicillin (P) >8 Resistant Rifampin (RA) <=1 Susceptible Tetracycline (TE) <=1 Susceptible Trimethoprim/Sulfa <=0.5/9.Susceptible (SXT) 5 Vancomycin (VA) 2 SusceptibleRenal [id number] 08:51:00 Test Item Value Reference Range Interpretation [...] National Kidney Foundation,http ://nkd ep.nih.gov CBC with [id number] 07:39:00 Test Item Value Reference Range Interpretation [...] code = ALYMPH) 1.7 K/cumm 0.5-4.6 N [place] Abs (test code = AMONO) 0.3 K/cumm 0.0-1.2 N Eos Abs (test code = AEOS) 0.29 K/cumm 0.00-0.74 N Baso Abs (test code = ABASO) 0.0 K/cumm 0.00-0.21 N Vancomycin, [id number] 12:33:00 Test Item Value Reference Range Interpretation Comments Vanco, Trou (test code = VANTR) 7.9 ug/mL 10.0-20.0 L Magnesium, [id number] 06:37:00 Test Item Value Reference Range Interpretation Comments Magnesium (test code = MG) 2.4 mg/dL 1.7-2.5 N Renal [id number] 06:29:00 Test Item Value Reference Range Interpretation [...] is not provided , and the patient isAfmarniean-Amomar can, multiply by 1.2 12. If sex [...] National Kidney Foundation,http ://nkd ep.nih.gov BHCG, Serum, [id number] 06:26:00 Test Item Value Reference Range Interpretation Comments Preg Qual [Se] (test code = BSHCG) Negative Negative N CBC with [id number] 06:24:00 Test Item Value Reference Range Interpretation [...] code = ALYMPH) 1.6 K/cumm 0.5-4.6 N [place] Abs (test code = AMONO) 0.4 K/cumm 0.0-1.2 N Eos Abs (test code = AEOS) 0.18 K/cumm 0.00-0.74 N Baso Abs (test code = ABASO) 0.0 K/cumm 0.00-0.21 N XR CHEST 1 [id number] 16:29:55XR CHEST 1 VIEWLOCATION: [id number]: None.INDICATION: REVIEW PICC LINE PLACEMENTDISCUSSION:AP chest and [...] = TSH) 3.44 mIU/mL 0.270-4.200 N Lipid [id number] 05:47:00 Test Item Value Reference Range Interpretation Comments Cholesterol (test 160 mg/dL 0-200 N code = CHOL) Triglycerides (test 126 mg/dL 9-200 N code = TRIG) HDL (test code = 35 mg/dL 50-60 L HDL) Chol/HDL (test code 4.6 Ratio 0.0-4.4 H = CHOLPHDL) LDL, Calculated 100 0-130 N (NOTE)RISK O F HEART (test code = LDLC) DISEASEPu blished by [place] Konger Heart AssociationAnal yte Optim al Boderline Increased RiskC HOL <200 200-239 >240TRI G <150 150-199 >200HDL Male: >60 <40HDL Female: >60 <50 LDL < 100 130-15 9 >160 LDL NEAR OPTIMAL IS 100- 129 VLDL (test code = 25 mg/dL 5-40 N VLDL) LDL/HDL (test code = 3 LDLPHDL) Basic Metabolic [id number] 05:47:00 Test Item Value Reference Range Interpretation [...] the National Kidney Foundation,http ://nkd ep.nih.gov Magnesium, [id number] 05:47:00 Test Item Value Reference Range Interpretation Comments Magnesium (test code = MG) 2.3 mg/dL 1.7-2.5 N CBC with [id number] 05:36:00 Test Item Value Reference Range Interpretation [...] code = ALYMPH) 2.2 K/cumm 0.5-4.6 N [place] Abs (test code = AMONO) 0.3 K/cumm 0.0-1.2 N Eos Abs (test code = AEOS) 0.24 K/cumm 0.00-0.74 N Baso Abs (test code = ABASO) 0.0 K/cumm 0.00-0.21 N Partial Thromboplastin [id number] 21:26:00 Test Item Value Reference Range Interpretation Comments aPTT (test code = PTT) 29.00 seconds 24.39-37.25 N Prothrombin [id number] 21:26:00 Test Item Value Reference Range Interpretation Comments PT (test code = PT) 10.70 seconds 9.78-13.35 N INR (test code = INR) 0.95 Ratio 0.6-1.2 N Comprehensive Metabolic [id number] 21:23:00 Test Item Value Reference Range Interpretation [...] is not provided , and the patient isAfmarniean-Amomar can, multiply by 1.2 12. If sex [...] National Kidney Foundation,http ://nkd ep.nih.gov CBC with [id number] 21:16:00 Test Item Value Reference Range Interpretation [...] code = ALYMPH) 2.2 K/cumm 0.5-4.6 N [place] Abs (test code = AMONO) 0.4 K/cumm 0.0-1.2 N Eos Abs (test code = AEOS) 0.17 K/cumm 0.00-0.74 N Baso Abs (test code = ABASO) 0.1 K/cumm 0.00-0.21 N
--- NOTE | 2021-04-13 22:08 | RAD REPORT ---
EXAM DESCRIPTION: [facility] Single View04/13/2021 9:59 pm CLINICAL HISTORY: Chest pain COMPARISON: February 2021 FINDINGS: The lungs appear clear of acute infiltrate. The heart is normal size. Pacemaker leads in place IMPRESSION: No acute abnormalities displayed
[2021-04-13] MEDS ORDERED: FENTANYL CITR 100 MCG/2 ML ONE (22:17)
[2021-04-13 22:23] LABS: Protime INR 0.91
[2021-04-13 22:45] LABS: Absolute Lymphocytes (CBC) 2.1 K/uL (0.7-4.9); Basophils % 1.4 % (0-1.3); Hematocrit 35.2 % (36.0-45.0); Lymphocytes % 32.6 % (15.3-44.8); MPV 7.9 fL (7.6-11.3); RBC Red Blood Cell Count 4.07 M/uL (3.86-4.86)
[2021-04-13 23:03] LABS: ALT/SGPT 28 U/L (12-78); AST/SGOT 19 U/L (15-37); Albumin 3.5 g/dL (3.4-5.0); Alkaline Phosphatase 125 U/L (45-117); BUN Blood Urea Nitrogen 11 mg/dL (7-18); Bicarbonate 24 mmol/L (21-32); Bilirubin Direct < 0.1 mg/dL (0-0.2); Bilirubin Total 0.2 mg/dL (0.2-1.0); Digoxin Level < 0.10 ng/mL (0.80-2.00); Glucose Level 107 mg/dL (74-106); Magnesium 2.2 mg/dL (1.8-2.4); NT PRO-BNP 51 pg/mL (<125); Potassium 3.6 mmol/L (3.5-5.1); Protein, Total 7.1 g/dL (6.4-8.2); Sodium Level 141 mmol/L (136-145); Troponin (Emerg Dept Use Only) < 0.02 ng/mL (0.0-0.045)
[2021-04-13] MEDS ORDERED: FUROSEMIDE 20 MG/ 2ML VIAL ONE (23:37)
--- NOTE | 2021-04-14 01:13 | EDPHYS ---
Physician Documentation [facility] Name: Jenni Draper Age: 40 yrs Sex: Female : 1980 Arrival Date: 04/13/2021 Time: 21:14 Bed 19 Private MD: Diya Mora Atiq ED Physician Tanner Robbins HPI: 04/13 21:55 This 40 yrs old Female presents to ER via Ambulatory with complaints of Chest cp Pain, Breathing Difficulty, Arms and legs swelling. 21:55 The patient or guardian reports chest pain that is located primarily in the anterior cp chest wall. 21:55 The pain does not radiate. Duration: The patient or guardian reports a single episode, cp that is still ongoing. 21:55 The chest pain is described as sharp. cp 21:55 Severity of pain: in the emergency department the pain is a 7 / 10. cp Historical: - Allergies: 21:45 Adhesives; bb 21:45 Aspirin; bb 21:45 Bactrim; bb 21:45 Benadryl; bb 21:45 cefixime; bb 21:45 Cipro IV; bb 21:45 Clindamycin; bb 21:45 coconut oil; bb 21:45 Demerol; bb 21:45 Detrol; bb 21:45 Diltiazem; bb 21:45 Doxycycline; bb 21:45 FISH PRODUCT DERIVATIVES; bb 21:45 GABAPENTIN; bb 21:45 Iodine; bb 21:45 ivabradine; bb 21:45 Latex, Natural Rubber; bb 21:45 Levofloxacin; bb 21:45 Morphine; bb 21:45 PENICILLINS; bb 21:45 quetiapine; bb 21:45 Seroquel; bb 21:45 Sulfa (Sulfonamide Antibiotics); bb 21:45 Suprax; bb 21:45 tolterodine; bb 21:45 Toradol; bb - Home Meds: 21:45 Abilify 10 mg Oral tab 1 tab once daily [Active]; albuterol sulfate 1.25 mg/3 mL Inhl bb nebu 3 mL 3 times per day [Active]; alprazolam 0.25 mg Oral tab 1 tab nightly [Active]; atorvastatin 10 mg Oral tab 1 tab once daily [Active]; benztropine 1 mg Oral tab 1 tab 2 times per day [Active]; buspirone 15 mg Oral tab 1 tab 2 times per day [Active]; Coreg 25 mg Oral tab 1 tab 2 times per day [Active]; Daliresp 500 mcg Oral tab 1 tab once daily [Active]; digoxin 125 mcg Oral tab [Active]; Effexor XR 150 mg Oral cp24 1 cap once daily [Active]; Eliquis 5 mg Oral tab once a day [Active]; esomeprazole magnesium 40 mg Oral cpDR 1 cap once daily [Active]; Keppra 1,000 mg Oral tab 1 tab every 12 hours [Active]; loratadine 10 mg Oral tab 1 tab once daily [Active]; pregabalin 25 mg Oral 1 cap daily [Active]; ProAir HFA 90 mcg/actuation inhalation HFAA 2 puffs every 6 hours [Active]; Spiriva with HandiHaler 18 mcg inhalation CpDv 1 cap once daily [Active]; Topamax 100 mg Oral tab 2 tabs 2 times per day [Active]; venlafaxine 150 mg Oral cp24 1 cap once daily [Active]; - PMHx: 21:45 Asthma; Atrial Fib; Bronchitis; CHF; mitral valve prolapse; bb - PSHx: 21:45 Cholecystectomy; hysterectomy; left shoulder; right hand; bb - Immunization history:: Adult Immunizations unknown. - Social history:: Smoking status: unknown. ROS: 22:00 Constitutional: Negative for body aches, chills, fever, poor PO intake. cp 22:00 Eyes: Negative for injury, pain, redness, and discharge. cp 22:00 ENT: Negative for ear pain, sore throat, difficulty swallowing, difficulty handling secretions. 22:00 Cardiovascular: Positive for chest pain, Negative for palpitations. 22:00 Respiratory: Positive for shortness of breath, at rest. Negative for cough, wheezing. 22:00 Abdomen/GI: Negative for abdominal pain, nausea, vomiting, and diarrhea. 22:00 Back: Negative for pain at rest, pain with movement. 22:00 Neuro: Negative for altered mental status, dizziness, headache, syncope, weakness. 22:00 All other systems are negative. Exam: 21:47 ECG was reviewed by the Attending Physician. cp 22:05 Constitutional: The patient appears in no acute distress, alert, awake, cp non-diaphoretic, non-toxic, well developed, well nourished, uncomfortable. 22:05 Head/Face: Normocephalic, atraumatic. cp 22:05 Eyes: Periorbital structures: appear normal, Conjunctiva: normal, no exudate, no injection, Sclera: no appreciated abnormality, Lids and lashes: appear normal, bilaterally. 22:05 ENT: External ear(s): are unremarkable, Nose: is normal, Mouth: Lips: moist, Oral mucosa: moist, Posterior pharynx: Airway: no evidence of obstruction, patent. 22:05 Neck: ROM/movement: is normal, is supple, without pain, no range of motions limitations. 22:05 Chest/axilla: Inspection: normal, Palpation: crepitus, is not appreciated, tenderness, is not appreciated. 22:05 Cardiovascular: Rate: tachycardic, Rhythm: regular, Edema: ankle edema, that is very mild, JVD: is not appreciated. 22:05 Respiratory: the patient does not display signs of respiratory distress, Respirations: labored breathing, that is mild, Breath sounds: are clear throughout, no decreased breath sounds, no stridor, no wheezing. 22:05 Abdomen/GI: Inspection: abdomen appears normal, Palpation: abdomen is soft and non-tender, in all quadrants. 22:05 Back: pain, is absent, ROM is normal. 22:05 Skin: no rash present. 22:05 Neuro: Orientation: to person, place \T\ time. Mentation: is normal, Motor: moves all fours, strength is normal. Vital Signs: 21:43 BP 125 / 96; Pulse 105; Resp 18 S; Temp 98(O); Pulse Ox 99% on R/A; Weight 58.97 kg bb (R); Height 4 ft. 7 in. (139.70 cm) (R); Pain 8/10; 21:48 BP 127 / 84; Pulse 92; Resp 19; Pulse Ox 97% on R/A; ld1 22:49 BP 114 / 79; Pulse 93; Resp 18; Pulse Ox 98% on R/A; ld1 23:19 BP 115 / 85; Pulse 96; Resp 18; Pulse Ox 100% on R/A; ld1 04/14 00:15 BP 111 / 83; Pulse 102; Resp 20 S; Pulse Ox 99% on R/A; ad5 01:10 Pulse 85; Resp 18 S; Pulse Ox 98% on R/A; ad5 04/13 21:43 Body Mass Index 30.21 (58.97 kg, 139.70 cm) bb MDM: 04/13 21:43 Patient medically screened. cp 22:00 Differential diagnosis: acute myocardial infarction, acute pericarditis, cp costochondritis, pancreatitis, pericarditis, pneumonia, pneumothorax, pulmonary embolus, stable angina, unstable angina, DVT. 04/14 01:13 Data reviewed: vital signs, nurses notes, lab test result(s), EKG, radiologic studies, cp plain films. 01:13 Test interpretation: by ED physician or midlevel provider: ECG, plain radiologic cp studies. Counseling: I had a detailed discussion with the patient and/or guardian regarding: the historical points, exam findings, and any diagnostic results supporting the discharge/admit diagnosis, lab results, radiology results, to return to the emergency department if symptoms worsen or persist or if there are any questions or concerns that arise at home. Response to treatment: the patient's symptoms have markedly improved after treatment, and as a result, I will discharge patient. 04/13 21:49 Order name: Basic Metabolic Panel; Complete Time: 23:07 cp 04/13 23:07 Interpretation: Normal except: CL 112; GLUC 107. cp 04/13 21:49 Order name: CBC with Diff; Complete Time: 22:53 cp 04/13 22:53 Interpretation: Normal except: HGB 11.9; HCT 35.2. cp 04/13 21:49 Order name: LFT's; Complete Time: 23:07 cp 04/13 23:08 Interpretation: Normal except: ALK 125; GLOB 3.6; A/G 1.0. cp 04/13 21:49 Order name: Magnesium; Complete Time: 23:07 cp 04/13 21:49 Order name: NT PRO-BNP; Complete Time: 23:07 cp 04/13 23:08 Interpretation: NT PRO-BNP 51; Reviewed. cp 04/13 21:49 Order name: PT-INR; Complete Time: 22:53 cp 04/13 21:49 Order name: Troponin (emerg Dept Use Only); Complete Time: 23:07 cp 04/13 23:08 Interpretation: Within normal limits: TROPED < 0.02. cp 04/13 21:49 Order name: XRAY Chest (1 view); Complete Time: 22:53 cp 04/13 22:53 Interpretation: Report reviewed. cp 04/13 21:49 Order name: EKG; Complete Time: 21:49 cp 04/13 21:49 Order name: Digoxin; Complete Time: 23:07 cp 04/13 21:52 Order name: US Extremity Venous W Compression Leo cp 04/14 00:12 Order name: Troponin (emerg Dept Use Only): repeat at 0030; Complete Time: 01:14 mw2 04/14 01:15 Interpretation: Within normal limits: TROPED < 0.02. cp 04/13 21:49 Order name: Cardiac monitoring; Complete Time: 21:51 cp 04/13 21:49 Order name: EKG - Nurse/Tech; Complete Time: 21:50 cp 04/13 21:49 Order name: IV Saline Lock; Complete Time: 22:13 cp 04/13 21:49 Order name: Labs collected and sent; Complete Time: 22:13 cp 04/13 21:49 Order name: O2 Per Protocol; Complete Time: 21:51 cp 04/13 21:49 Order name: O2 Sat Monitoring; Complete Time: 21:52 cp EC/20 21:47 Rate is 98 beats/min. Rhythm is regular. NH interval is normal. QRS interval is normal. cp QT interval is normal. T waves are Inverted in lead aVR. Interpreted by me. Reviewed by me. Administered Medications: 22:12 Drug: fentaNYL (PF) 25 mcg Route: IVP; Site: right forearm; ld1 22:45 Follow up: Response: No adverse reaction ld1 23:18 Drug: Lasix (furosemide) 20 mg Route: IVP; Site: right antecubital; ld1 23:18 Follow up: Response: No adverse reaction ld1 Disposition: 04/14 02:55 Co-signature as Attending Physician, Tanner Robbins MD. rn Disposition Summary: 04/14/21 01:13 Discharge Ordered Location: Home cp Problem: new cp Symptoms: have improved cp Condition: Stable cp Diagnosis - Chest pain, unspecified cp Followup: cp - With: Private Physician - When: 1 - 2 days - Reason: Recheck today's complaints Discharge Instructions: - Discharge Summary Sheet cp - Nonspecific Chest Pain, Adult cp - Peripheral Edema cp Forms: - Medication Reconciliation Form cp - Thank You Letter cp - Antibiotic Education cp - Prescription Opioid Use cp Signatures: Dispatcher [employer] Denisse Quintana, RN RN bb Tanner Robbins MD MD rn Page, Corey, PA PA cp Dibbern, Lauren, RN RN ld1
--- NOTE | 2021-04-14 01:13 | ER ---
Nurse's Notes [facility] Name: Jenni Draper Age: 40 yrs Sex: Female : 1980 Arrival Date: 04/13/2021 Time: 21:14 Bed 19 Private MD: Diya Mora Atiq Diagnosis: Chest pain, unspecified Presentation: 04/13 21:43 Chief complaint: Patient states: about 1900 she started having constant, non-radiating bb chest pain with SOB and her extremities are swollen. Coronavirus screen: At this time, the client does not indicate any symptoms associated with coronavirus-19. Ebola Screen: No symptoms or risks identified at this time. Initial Sepsis Screen: Does the patient meet any 2 criteria? No. Patient's initial sepsis screen is negative. Does the patient have a suspected source of infection? No. Patient's initial sepsis screen is negative. Risk Assessment: Do you want to hurt yourself or someone else? Patient reports no desire to harm self or others. Onset of symptoms was April 13, 2021. 21:43 Method Of Arrival: Ambulatory bb 21:43 Acuity: LYUBOV 3 bb Historical: - Allergies: 21:45 Adhesives; bb 21:45 Aspirin; bb 21:45 Bactrim; bb 21:45 Benadryl; bb 21:45 cefixime; bb 21:45 Cipro IV; bb 21:45 Clindamycin; bb 21:45 coconut oil; bb 21:45 Demerol; bb 21:45 Detrol; bb 21:45 Diltiazem; bb 21:45 Doxycycline; bb 21:45 FISH PRODUCT DERIVATIVES; bb 21:45 GABAPENTIN; bb 21:45 Iodine; bb 21:45 ivabradine; bb 21:45 Latex, Natural Rubber; bb 21:45 Levofloxacin; bb 21:45 Morphine; bb 21:45 PENICILLINS; bb 21:45 quetiapine; bb 21:45 Seroquel; bb 21:45 Sulfa (Sulfonamide Antibiotics); bb 21:45 Suprax; bb 21:45 tolterodine; bb 21:45 Toradol; bb - Home Meds: 21:45 Abilify 10 mg Oral tab 1 tab once daily [Active]; albuterol sulfate 1.25 mg/3 mL Inhl bb nebu 3 mL 3 times per day [Active]; alprazolam 0.25 mg Oral tab 1 tab nightly [Active]; atorvastatin 10 mg Oral tab 1 tab once daily [Active]; benztropine 1 mg Oral tab 1 tab 2 times per day [Active]; buspirone 15 mg Oral tab 1 tab 2 times per day [Active]; Coreg 25 mg Oral tab 1 tab 2 times per day [Active]; Daliresp 500 mcg Oral tab 1 tab once daily [Active]; digoxin 125 mcg Oral tab [Active]; Effexor XR 150 mg Oral cp24 1 cap once daily [Active]; Eliquis 5 mg Oral tab once a day [Active]; esomeprazole magnesium 40 mg Oral cpDR 1 cap once daily [Active]; Keppra 1,000 mg Oral tab 1 tab every 12 hours [Active]; loratadine 10 mg Oral tab 1 tab once daily [Active]; pregabalin 25 mg Oral 1 cap daily [Active]; ProAir HFA 90 mcg/actuation inhalation HFAA 2 puffs every 6 hours [Active]; Spiriva with HandiHaler 18 mcg inhalation CpDv 1 cap once daily [Active]; Topamax 100 mg Oral tab 2 tabs 2 times per day [Active]; venlafaxine 150 mg Oral cp24 1 cap once daily [Active]; - PMHx: 21:45 Asthma; Atrial Fib; Bronchitis; CHF; mitral valve prolapse; bb - PSHx: 21:45 Cholecystectomy; hysterectomy; left shoulder; right hand; bb - Immunization history:: Adult Immunizations unknown. - Social history:: Smoking status: unknown. Screenin:48 Abuse screen: Denies threats or abuse. Denies injuries from another. Nutritional ld1 screening: No deficits noted. Tuberculosis screening: No symptoms or risk factors identified. Fall Risk None identified. Assessment: 21:48 General: Appears in no apparent distress. comfortable, Behavior is cooperative, ld1 appropriate for age, anxious. Pain: Complains of pain in chest Pain does not radiate. Pain currently is 7 out of 10 on a pain scale. Quality of pain is described as sharp, Pain began 2 hours ago. Is continuous. Neuro: Level of Consciousness is awake, alert, obeys commands, Oriented to person, place, time, situation. Cardiovascular: Capillary refill < 3 seconds Patient's skin is warm and dry. Rhythm is sinus tachycardia. Respiratory: Airway is patent Respiratory effort is even, unlabored, Respiratory pattern is regular, symmetrical. GI: Abdomen is round non-distended. : No signs and/or symptoms were reported regarding the genitourinary system. EENT: No signs and/or symptoms were reported regarding the EENT system. Derm: No signs and/or symptoms reported regarding the dermatologic system. Musculoskeletal: No signs and/or symptoms reported regarding the musculoskeletal system. 22:49 Reassessment: Patient appears in no apparent distress at this time. No changes from ld1 previously documented assessment. Patient and/or family updated on plan of care and expected duration. Pain level reassessed. 23:18 Reassessment: Patient appears in no apparent distress at this time. Patient is alert, ld1 oriented x 3, equal unlabored respirations, skin warm/dry/pink. Waiting on results in bed with at bedside. 04/14 00:15 Reassessment: Patient appears in no apparent distress at this time. Patient and/or ad5 family updated on plan of care and expected duration. Pain level reassessed. Patient is alert, oriented x 3, equal unlabored respirations, skin warm/dry/pink. 01:09 Reassessment: Patient appears in no apparent distress at this time. Pt up to restroom, ad5 ambulatory with steady gait. Repositioned back into stretcher for comfort, reattached to CM/BP/pulse ox. S.O. remains at bedside with pt, bed low and locked, bedrail x 1, call light within reach. NAD noted, will continue to monitor. Vital Signs: 04/13 21:43 BP 125 / 96; Pulse 105; Resp 18 S; Temp 98(O); Pulse Ox 99% on R/A; Weight 58.97 kg bb (R); Height 4 ft. 7 in. (139.70 cm) (R); Pain 8/10; 21:48 BP 127 / 84; Pulse 92; Resp 19; Pulse Ox 97% on R/A; ld1 22:49 BP 114 / 79; Pulse 93; Resp 18; Pulse Ox 98% on R/A; ld1 23:19 BP 115 / 85; Pulse 96; Resp 18; Pulse Ox 100% on R/A; ld1 04/14 00:15 BP 111 / 83; Pulse 102; Resp 20 S; Pulse Ox 99% on R/A; ad5 01:10 Pulse 85; Resp 18 S; Pulse Ox 98% on R/A; ad5 04/13 21:43 Body Mass Index 30.21 (58.97 kg, 139.70 cm) ED Course: 04/13 21:14 Patient arrived in ED. es 21:15 Diya Mora MD is Private Physician. es 21:35 Caio Briones PA is PHCP. cp 21:35 Tanner Robbins MD is Attending Physician. cp 21:43 Kati Hradwick RN is Primary Nurse. ld1 21:45 Triage completed. bb 21:45 Arm band placed on Patient placed in an exam room, on a stretcher. EKG completed in bb triage. Results shown to MD. Family accompanied patient. 21:48 Patient has correct armband on for positive identification. Placed in gown. Bed in low ld1 position. Call light in reach. Side rails up X2. library monitor on. Pulse ox on. NIBP on. 21:48 No provider procedures requiring assistance completed. Patient maintains SpO2 ld1 saturation greater than 95% on room air. 21:59 XRAY Chest (1 view) In Process Unspecified. EDMS 22:34 US Extremity Venous W Compression Leo In Process Unspecified. EDMS 23:18 Inserted saline lock: 20 gauge in right forearm, using aseptic technique. Blood ld1 collected. 04/14 01:24 IV discontinued, intact, bleeding controlled, No redness/swelling at site. Pressure ad5 dressing applied. Administered Medications: 04/13 22:12 Drug: fentaNYL (PF) 25 mcg Route: IVP; Site: right forearm; ld1 22:45 Follow up: Response: No adverse reaction ld1 23:18 Drug: Lasix (furosemide) 20 mg Route: IVP; Site: right antecubital; ld1 23:18 Follow up: Response: No adverse reaction ld1 Outcome: 04/14 01:13 Discharge ordered by . cp 01:24 Discharged to home ambulatory, with significant other. ad5 01:24 Condition: stable 01:24 Discharge instructions given to patient, Instructed on discharge instructions, follow up and referral plans. Demonstrated understanding of instructions, follow-up care. 01:24 Patient left the ED. ad5 Signatures: Dispatcher [employer] Leelee Heredia Brenda, RN RN bb Caio Briones PA PA cp Dibbern, Lauren, RN RN ld1 Abdifatah Graham ad5
[2021-04-14 05:28] VITALS: TEMP 98
[2021-04-14 05:34] VITALS: BP 111/83
[2021-04-14 05:36] VITALS: O2SAT 98
--- NOTE | 2021-04-14 07:49 | RAD REPORT ---
EXAM DESCRIPTION: USExtrem Venous W Compress Bil04/13/2021 10:34 pm CLINICAL HISTORY: Leg swelling COMPARISON: 2018 FINDINGS: The common femoral, superficial femoral, popliteal and posterior tibial veins bilaterally are compressible and demonstrate augmentation. Doppler demonstrates good flow. IMPRESSION: No evidence of deep venous thrombosis involving either lower extremity.
--- NOTE | 2021-04-14 10:42 | EKG ---
Test Date: 2021-04-13 Test Time: 21:39:21 Vendor Manager: JANES MEASUREMENT RESULTS: Intervals: Rate: 98 PA: 136 QRSD: 90 QT: 340 QTc: 434 [place]: P: 39 PA: 136 QRS: 14 T: 34 INTERPRETIVE STATEMENTS: Normal sinus rhythm Normal ECG Compared to ECG 03/16/2021 13:04:53 No significant changes Electronically Signed On 04-14-21 10:41:07 CDT by Nadeem Rajan
== END 2021-04-14 01:24 | disposition home or self-care (01) ==
LOC: ER 21:11
DX: R07.89 Other chest pain (principal); I50.9 Heart failure, unspecified; I48.91 Unspecified atrial fibrillation; Z79.01 Long term (current) use of anticoagulants; Z88.1 Allergy status to other antibiotic agents; Z88.2 Allergy status to sulfonamides; Z88.3 Allergy status to other anti-infective agents; Z88.5 Allergy status to narcotic agent; Z88.6 Allergy status to analgesic agent; Z91.013 Allergy to seafood; Z91.018 Allergy to other foods; Z91.040 Latex allergy status; Z91.048 Other nonmedicinal substance allergy status
CPT/HCPCS: 93005; 85025; 80048; 36415; 83735; 85610; 80162; 80076; 84484 ×2; 83880; 71045; 93970; 96375; 96374; 99285; J1940; J3010

== ENCOUNTER 2021-04-30 18:28 | Emergency (ER) | payer OTHER ==
--- OUTSIDE RECORDS SUMMARY | 2021-04-30 18:34 | XMS REPORT | Continuity of Care Document ---
:1980 Author Organization [facility] t Address [address] [place] [address] Care Team Providers Name Role Phone MILTON [...] Date Expiration Date Sour ce Number [facility] [id number] 2011 Met panda STAR+PLUS 00:00:00 Hospital [id number] 2010- PresentHMO MEDICAID - MEDICAID [id number] [facility] CAREGENERIC 00:00:00 - Medical MEDICAID Center [id number] 2010- PresentMedicaid Non-Contracted SOLORIO [id number] 2018 [facility] MEDICAIDMEDICAID 00:00:00 - Medica l [id number] 018-Present Problems Condition Condition Condition Status Onset Resolution Last Treating Co mments Source Name Details Category Date Date Treatment Clinician Date Left-sided Left-sided Disease Active [facility] weakness weakness 02-12 [facility] - 00:[facility]: Medical 00 [place] Received Received Disease Active [facility] tissue tissue 02[facility]12 [facility] - plasminoge plasminoge 00:00: Mn dical n n 00 Center activator activator (t-PA) (t-PA) less than less than 24 hours 24 hours prior to prior to arrival arrival Acute Acute Disease Active [facility] ischemic ischemic 02-11 [facility] - stroke stroke 00:00: Medical 00 [place] Chest pain Chest pain Disease Active [facility] in adult in adult -20 [facility] - 00:[facility]: Medical 00 [place] Seizure Seizure Disease Active 2018-[address] disorder disorder 2- [facility] - 00:[facility]: Medical 00 [place] Anxiety Anxiety Disease Active [facility] disorder disorder 04-29 [facility] - 00:[facility]: Medical 00 [place] Asthma Asthma Disease Active [facility] 8- [facility] - 00:[facility]: Medical 00 [place] Paresthesi Paresthesi Disease Active 2017-[address] a of left a of left 10-17 [facility] - arm and arm and 00:00: Medical leg leg 00 Center PAF PAF Disease Active [facility] (paroxysma (paroxysma 04-27 Jeanie kes - l atrial l atrial 00:00: Medica l fibrillati fibrillati 00 Ce nter on) on) A-fib A-fib Disease Active [facility] Cerebrovas Cerebrovas Disease Resolve 2021-02-12 2021-02-[address] cular cular d 00:00:00 11:42:08 [facility] - accident accident Medica l (CVA), (CVA), Center unspecifie unspecifie d d mechanism mechanism Allergies, Adverse Reactions, Alerts Allergy Allergy Status Severity Reaction(s) Onset Inactive Treating Comm ents Source Name Type Date Date Clinician tramadol DA Active SV 2020-0 [facility] 1[facility]04 [place] 00:00: d 00 [facility] gabapent DA Active SV 2020-0 [facility] in - [place] 00:[facility]: d 00 [facility] diltiaze DA Active SV 2020-0 [facility] m - [place] 00:[facility]: d 00 [facility] diphenhy DA Active SV 2020-0 [facility] dramine - [place] 00:00: d 00 [facility] topirama DA Active SV 2020-0 [facility] te - [place] 00:00: d 00 [facility] levoflox DA Active SV 2020-0 [facility] acin - [place] 00:00: d 00 [facility] quetiapi DA Active MO 2020-0 [facility] ne -04 [place] 00:00: d 00 [facility] tolterod DA Active MO 2020-0 [facility] ine -04 [place] 00:00: d 00 [facility] Center latex DA Active SV 2020-0 [facility] -04 [place] 00:00: d 00 [facility] ivabradi DA Active MO 2020-0 [facility] ne -04 [place] 00:00: d 00 [facility] Center coconut FA Active MO 2020-0 [facility] -04 [place] 00:00: d 00 [facility] Center Penicill DA Active SV 2020-0 [facility] ins - [place] 00:00: d 00 Medical [place] Sulfa DA Active MO 2020-0 [facility] (Sulfona 04 [place] mide 00:00: d Antibiot 00 Medical [...] 2020-0 [facility] 1-04 [place] 00:00: d 00 [facility] Center doxycycl DA Active SV 2020-0 [facility] ine 1-04 [place] 00:00: d 00 [facility] Center clindamy DA Active MO 2020-0 [facility] stephan 1-04 [place] 00:00: d 00 [facility] Center sulfamet DA Active MO 2020-0 [facility] hoxazole 1-04 [place] 00:00: d 00 [facility] trimetho DA Active MO 2020-0 [facility] prim 1-04 [place] 00:00: d 00 [facility] ciproflo DA Active SV 2020-0 [facility] xacin 1-04 [place] 00:00: d 00 [facility] Center adhesive DA Active SV 2020-0 [facility] tape 1-04 [place] 00:00: d 00 [facility] Topirama Propensi Active Anaphylaxis 2019-0 M ethodi te ty to 16 st adverse 00:00: Hospita reaction 00 l s to drug Ivabradi Propensi Active Rash 2018-09: Meth jamie ne ty to 0-[address] adverse 00:00: passing Hospita reaction 00 out after l s to taking drug one dose of that medicine Diltiaze Propensi Active Shortness Of 2018-0 Methodi m ty to Breath 9[facility] adverse 00:00: Hospita reaction 00 l s to drug Doxycycl Propensi Active Rash Method i ine ty to 805 st adverse 00:00: Hospita reaction 00 l s to drug Levoflox Propensi Active Anaphylaxis 2018- M ethodi acin ty to 805 st adverse 00:00: Hospita reaction 00 l s to drug Cephalex Propensi Active Anaphylaxis 0 M ethodi in ty to 805 st adverse 00:00: Hospita reaction 00 l s to drug Tolterod Propensi Active Rash [...] Iodide adverse 00:00: Medical Containi reaction 00 [place] ng s Products Latex Propensi Active Rash 2017-[address] ty to 10-17 [facility] - adverse 00:00: Medical reaction 00 Center s Morphine Propensi Active Anaphylaxis 2017-[address] ty to 10-17 [facility] - adverse 00:00: Medical reaction 00 [place] s Penicill Propensi Active Anaphylaxis 2017-[address] ins ty to 10-17 [facility] - adverse 00:00: Medical reaction 00 [place] s Quetiapi Propensi Active 2017-[address] ne ty to 10-17 [facility] - adverse 00:00: Medical reaction 00 [place] s Sulfa Propensi Active Rash 2017-[address] (Sulfona ty to 10-17 [facility] - mide adverse 00:00: Medical Antibiot reaction 00 [facility]) s Cefixime Propensi Active Rash 2017-[address] ty to 10-17 [facility] - adverse 00:00: Medical reaction 00 [place] s Tramadol Propensi Active Rash 2017-[address] ty to 10-17 [facility] - adverse 00:00: Medical reaction 00 [place] s Adhesive Propensi Active Rash 2017-09 Can use [facility] t Tape ty to 10-17 papertape [facility] - adverse 00:00: . Medical reaction 00 [place] s Sulfamet Propensi Active Anaphylaxis 2017-[address] hoxazole ty to 10-17 [facility] - -Trimeth adverse 00:00: Medical oprim reaction 00 [place] s Diphenhy Propensi Active Nausea And 2017-[address] dramine ty to Vomiting 10-17 [facility] - Hcl adverse 00:00: Medical reaction 00 [place] s Ciproflo Propensi Active 2017-[address] xacin ty to 10-17 aches. [facility] - adverse 00:00: Medical reaction 00 [place] s Clindamy Propensi Active Rash 2017-[address] stephan ty to 10-17 [facility] - adverse 00:00: Medical reaction 00 [place] s Sulfamet Propensi Active Rash 2017-09 Method i hoxazole ty to 10-17 st -Trimeth adverse 00:00: Hospita oprim reaction 00 l s to drug Cefixime Propensi Active Rash 2017-09 Method i ty to 10-17 adverse 00:00: Hospita reaction 00 l s to drug Coconut Propensi Active Rash 2017-09 Methodi ty to 10-04 adverse 00:00: Hospita reaction 00 l s to drug Coconut Propensi Active Rash 2017-09 Methodi Oil ty to 10-04 adverse 00:00: Hospita reaction 00 l s to drug Other Propensi Active Swelling 2017-09 Family Method i ty to 10-04 st adverse 00:00: of Hospita reaction 00 allergic l s reaction. Clindamy Propensi Active Rash Method i stephan ty to 01-04 adverse 00:00: Hospita reaction 00 l s to drug Diphenhy Propensi Active Other (See Me thodi dramine ty to Comments) 01-04 adverse 00:00: Hospita reaction 00 l s to drug Gabapent Propensi Active Shortness Of Methodi in ty to Breath 01-04 st adverse 00:00: Hospita reaction 00 l s to drug Iodine Propensi Active Rash Methodi And ty to 01-04 st Iodide adverse 00:00: Hospita Containi reaction 00 l ng s to Products drug Morphine Propensi Active Anaphylaxis 2016-09 M ethodi ty to 005 st adverse 00:00: Hospita reaction 00 l s to drug Tramadol Propensi Active Rash Rash Rash Met hodi ty to 06-22 st adverse 00:00: Hospita reaction 00 l s to drug Quetiapi Propensi Active Rash confusion Met hodi ne ty to 04-20 st adverse 00:00: Hospita reaction 00 l s to drug Ciproflo Propensi Active Other (See Muscle Me thodi xacin ty to Comments) 02-[address] adverse 00:00: le aches. Hospit a reaction 00 Muscle l s to aches drug Aspirin Propensi Active Anaphylaxis Me thodi ty to 408 st adverse 00:00: Hospita reaction 00 l s to drug Latex Propensi Active Rash 2012-09 "blisters Metho di ty to 10-20 "blisters st adverse 00:00: "blisters Hospit a reaction 00 " l s to drug Penicill Propensi Active Anaphylaxis 2012-09 M ethodi ins ty to 10-20 st adverse 00:00: Hospita reaction 00 l s to drug Sulfa Propensi Active Rash 2012-09 Methodi (Sulfona ty to 10-20 st mide adverse 00:00: Hospita Antibiot reaction 00 l ics) s to drug Tolterod Propensi Active Rash 2012-09 Method i ine ty to 10-20 st adverse 00:00: Hospita reaction 00 l s to drug Adhesive Propensi Active Rash 2012-09 Can use Metho di Tape-Cynthia ty to 10-[address] icones adverse 00:00: . Can use Hospit a reaction 00 papertape l s to . drug Social History Social Habit Start Date Stop Date Quantity Comments Source History [facility] Alcohol Std Drinks Hospit al History [facility] Alcohol Binge Hospital Tobacco use and 2021-03-17 2021-03-17 Never used [facility] exposure 00:00:00 00:00:00 Hospital Alcohol intake 2021-03-17 2021-03-17 Current [facility] 00:00:00 00:00:00 non-drinker of Hospital alcohol (finding) History [facility] 2018-09-05 2018-09-05 1 [facility] Alcohol Frequency 00:00:00 00:00:00 Hospita l Sex [birth year] At [birth year] [facility] 00:00:00 00:00:00 Hospital Smoking Status Start Date Stop Date Source Former smoker 2021-03-17 00:00:00 2021-03-17 00:00:00 [facility] Medications Ordered Filled Start Stop Current Ordering Indication Dosage Frequency Signature Comments Components Source Medication Medication Date Date Medication? Clinician (SIG) Name Name fluticasone Yes 100ug QD 2 sprays M ethodi propionate 6-25 ([address] (FLONASE) 00:00: total) by Hos elenita 50 00 Each Nare l mcg/actuati route on nasal daily. spray fexofenadin 2020- No 180mg QD Take 1 Me thodi e (SUDHAKAR) 6-25 - tablet st 180 MG 00:00: 04:59 (180 mg Hospita tablet 00 :00 total) by l mouth daily for 30 days. fluticasone 0 2020- No QD Inhale 1 M ethodi furoate-natan 6-24 06-24 inhalation s t anteroL 22:52: 00:00 s daily. Hospi ta (Breo 47 :00 l Ellipta) 100-25 mcg/dose blister with device powder for inhalation fluticasone 0 2020- No 1{puff} Q.5D Inhale 1 Methodi propionate 6-24 06-[address] (FLOVENT 22:52: 00:00 (two) Hospita HFA) 110 47 :00 times a l mcg/actuati day. on inhaler benztropine Yes 1mg Q.5D Take 1 mg M ethodi (COGENTIN) 6-[address] 1 MG tablet 22:52: (two) Hospi ta 44 times a l day. busPIRone 0 Yes 15mg Q.5D Take 15 mg Me thodi (BUSPAR) 10 6-[address] MG tablet 22:52: (two) Hospita 44 times a l day. digOXIN 0 Yes 125ug QD Take 125 Metho di (LANOXIN) 6-[address] 125 mcg 22:52: mouth Hospita tablet 44 daily. l ALPRAZolam Yes .25mg QD Take 0.25 M ethodi (XANAX) 6-[address] 0.25 MG 22:52: mouth Hospita tablet 44 nightly as l needed for anxiety. carvediloL 0 Yes 25mg Q.5D Take 25 mg M ethodi (COREG) 25 6-[address] MG tablet 22:52: (two) Hospita 44 times a l day with meals. venlafaxine 0 Yes 150mg QD Take 150 M ethodi XR 6-[address] (EFFEXOR-XR 22:52: mouth Hospi ta ) 150 MG 24 44 daily. l hr capsule apixaban 0 Yes 5mg Q.5D Take 5 mg Meth jamie (ELIQUIS) 5 6-[address] mg tablet 22:52: (two) Hospita 44 times a l day. famotidine Yes 20mg QD Take 20 mg M ethodi (PEPCID) 20 6-[address] MG tablet 22:52: nightly. [facility] 44 l levETIRAcet 0 Yes 1000mg Q.5D Take 1,000 Methodi am (KEPPRA) 6-[address] 1000 MG 22:52: mouth 2 Hospita tablet 44 (two) l times a day. pregabalin Yes 50mg QD Take 50 mg M ethodi (LYRICA) 50 6-[address] MG capsule 22:52: nightly. Hos elenita 44 l cariprazine 0 Yes 1.5mg QD Take 1.5 M ethodi (Vraylar) 6-[address] 1.5 mg 22:52: mouth Hospita capsule 44 nightly. 2 l capsules cholecalcif 0 Yes 2000U QD Take 2,000 Methodi florentino, 6-[address] vitamin D3, 22:52: mouth Hospi ta 1,000 unit 44 daily. l tablet tiotropium Yes 1{capsu QD Place 1 M ethodi (SPIRIVA) 6-24 le} capsule st 18 mcg per 22:52: into Hospita inhalation 44 inhaler l capsule and inhale once daily. rosuvastati Yes 5mg QD Take 5 mg M ethodi n (CRESTOR) 6-[address] 5 mg tablet 22:52: daily. [facility] 44 l cycloSPORIN Yes 1[drp] Q.5D 1 drop 2 Methodi E 6-24 (two) st (RESTASIS) 22:52: times a [facility] 0.05 % 44 day. l ophthalmic emulsion albuterol Yes 1{ampul Q.[id number] Take 1 Methodi (ACCUNEB) 6-24 e} [id number] ampule by st 1.25 mg/3 22:52: 3D nebulizati Ho spita mL 44 on 3 l nebulizer (three) solution times a day. esomeprazol 2020- No 20mg QD Take 20 mg Methodi e (NexIUM) 6-24 06-[address] 20 MG 20:19: 00:00 daily Hospita capsule 48 :00 before l breakfast. ARIPiprazol No 5mg QD Take 5 mg Methodi e (ABILIFY) 03-[address] 5 MG tablet 01:39: 00:00 daily. Hos elenita 34 :00 l ARIPiprazol 2020- No 10mg QD Take 10 mg Methodi e (ABILIFY) 03-[address] 10 MG 01:39: 00:00 daily. Hospita tablet 25 :00 l fluticasone Yes QD Inhale 1 Me thodi furoate-natan 6-[address] anteroL 00:00: s daily. Hospit a (Breo 00 l Ellipta) 200-25 mcg/dose blister with device powder for inhalation albuterol Yes 2{puff} Q4H Inhale 2 M ethodi (PROAIR 6-[address] HFA) 90 00:00: every 4 Hospita mcg/actuati 00 (four) l on inhaler hours as needed for wheezing. esomeprazol No 40mg QD Take 1 Met hodi e (NexIUM) 03-[address] 40 MG 00:00: 04:59 (40 mg Hospita capsule 00 :00 total) by l mouth daily before breakfast for 30 days. ibuprofen 2020- No 600mg Q8H Take 1 Meth jamie (ADVIL) 600 03-18- tablet st MG tablet 00:00: 04:59 (600 mg [facility] 00 :00 total) by l mouth every 8 (eight) hours for 5 days. methylPREDN No follow Met hodi ISolone 03-18- package st (Medrol, 00:00: 04:59 directions Ho spita Juliocesar,) 4 mg 00 :00 l tablet promethazin No 12.5mg Q6H Take 1 M ethodi e 03-18- tablet st (PHENERGAN) 00:00: 04:59 (12.5 mg H ospita 12.5 MG 00 :00 total) by l tablet mouth every 6 (six) hours as needed for nausea or vomiting for up to 3 days. ALPRAZolam Yes .25mg Take 0.25 C HI [...] MG 14:04: mouth Medical tablet 46 daily. [place] venlafaxine Yes 150mg QD Take [address] (EFFEXOR-XR 5-21 mg by [facility] - ) 150 MG 24 14:04: mouth Medic al hr capsule 46 daily. [place] apixaban Yes 5mg QD Take [address] (ELIQUIS) 5 5-21 by mouth Luke s - mg Tab 14:04: daily. Medical tablet 46 [place] levETIRAcet Yes 1000mg Q.5D Take 1,[address] am (KEPPRA) 5-21 mg by [facility] - 1000 MG 14:04: mouth 2 Medical tablet 46 (two) Center times daily. loratadine Yes 10mg QD Take [address] (CLARITIN) 5-21 by mouth [facility] - 10 mg 14:04: daily. Medical tablet 46 [place] pregabalin Yes 50mg QD Take 50 mg [...] mouth [facility] - MG tablet 14:04: nightly. [facility] blane 46 Center carvediloL Yes 25mg [...] 2mg Take [address] (COGENTIN) -19 05-19 by mouth 3 Jeanie kes - 2 MG tablet 22:18: 00:00 (three) Me dical 40 :00 times Center daily as needed. benztropine No 1mg Take [address] (COGENTIN) -19 05-19 by mouth Luke s - 1 MG tablet 22:18: 00:00 daily as M edical 31 :00 needed. [place] ARIPiprazol No 5mg QD Take [address] e (ABILIFY) 5-19 05-19 by mouth Berta es - 5 MG tablet 22:18: 00:00 nightly. M edical 03 :00 [place] ARIPiprazol No 10mg QD Take [address] e (ABILIFY) 5-19 05-19 by mouth Berta es - 10 MG 22:17: 00:00 daily. Medical disintegrat 48 :00 Center ing tablet Vital Signs Vital Name Observation Time Observation Value Comments Source Oxygen saturation in 2021-03-18 20:00:00 97 /min [facility] Arterial blood by Pulse oximetry Systolic blood 2021-03-18 17:24:48 132 mm[Hg] [facility] Hospital pressure Diastolic blood 2021-03-18 17:24:48 72 mm[Hg] [facility] pressure Heart rate 2021-03-18 17:24:48 96 /min Method[facility] Body temperature 2021-03-18 17:24:48 37 Ayaka Meth [facility] Respiratory rate 2021-03-18 17:24:48 14 /min [facility] [place] [place] Body height 2021-03-18 01:37:[address] [facility] Body weight 2021-03-18 00:09:[address] [facility] BMI 2021-03-18 00:09:00 26.26 kg/m2 [facility] Systolic blood 2021-02-12 12:00:00 101 mm[Hg] [facility] Diastolic blood 2021-02-12 12:00:00 72 mm[Hg] [facility] Heart rate 2021-02-12 12:00:00 93 /min [facility] Respiratory rate 2021-02-12 12:00:00 18 /min [facility] Oxygen saturation in 2021-02-12 12:00:00 96 /min [facility] Arterial blood by Medical Ce nter Pulse oximetry Body temperature 2021-02-12 11:00:00 37.56 Ayaka [facility] Body weight 2021-02-11 10:15:00 59.5 kg [facility] BMI 2021-02-11 10:15:00 26.48 kg/m2 [facility] Body height 2021-02-11 10:15:00 149.9 cm [facility] Procedures Procedure Date / Time Performing Clinician Source Performed POC GLUCOSE 2021-03-18 17:31:00 Cliff Berkowitz [facility] spital ECG 12-LEAD 2021-03-18 17:28:[address] TROPONIN 2021-03-18 16:41[facility] WO 2021-03-18 14:19:[facility] CONTRAST, W DOPPLER ([id number]) POC GLUCOSE 2021-03-18 13:14:00 Laeeq, [facility] HC COMPLETE BLD COUNT 2021-03-18 10:00:00 Lae, [facility] W/AUTO DIFF COMPREHENSIVE METABOLIC 2021-03-18 10:00:00 Laeeq, [facility] PANEL MAGNESIUM LEVEL 2021-03-18 10:00:00 [facility], [facility] PHOSPHORUS LEVEL 2021-03-18 10:00:00 [facility], [facility] LIPID PANEL 2021-03-18 10:00:00 [facility], [facility] HEMOGLOBIN A1C 2021-03-18 10:00:00 [facility], [facility] ESTIMATED GFR 2021-03-18 10:00:00 [facility], [facility] URINE CULTURE 2021-03-18 06:12:00 [facility], [facility] URINALYSIS SCREEN AND 2021-03-18 05:36:00 [facility], [facility] MICROSCOPY, WITH REFLEX TO CULTURE LEGIONELLA URINARY 2021-03-18 05:36:00 [facility], [facility] ANTIGEN STREPTOCOCCUS PNEUMONIAE 2021-03-18 05:36:00 [facility], [facility] URINARY ANTIGEN BLOOD CULTURE, AEROBIC & 2021-03-18 04:35:00 Lae, [facility] ANAEROBIC BLOOD CULTURE, AEROBIC & 2021-03-18 04:25:00 [facility], [facility] ANAEROBIC DIGOXIN LEVEL 2021-03-18 04:24:00 [facility], [facility] TROPONIN 2021-03-18 04:24:00 [facility] LACTIC ACID LEVEL, SEPSIS 2021-03-18 04:24:00 [facility], [facility] - NOW AND REPEAT 2X EVERY 3 HOURS POC GLUCOSE 2021-03-18 01:38:00 [facility], [facility] ARTERIAL BLOOD GAS 2021-03-18 01:10:00 [facility], [facility] US DUPLEX VENOUS LOWER 2021-03-18 01:00:06 [facility], [facility] EXTREMITY BILATERAL LACTIC ACID LEVEL, SEPSIS 2021-03-17 23:47:00 [facility], [facility] - NOW AND REPEAT 2X EVERY 3 HOURS TROPONIN 2021-03-17 23:47:00 [facility], [facility] XR CHEST 1 VW PORTABLE 2021-03-17 21:20:18 [facility] COMPLETE BLD [facility] 2021-03-17 21:05:00 [facility] W/AUTO DIFF LACTIC ACID LEVEL, SEPSIS 2021-03-17 21:05:00 [facility], [facility] - NOW AND REPEAT 2X EVERY 3 HOURS COMPREHENSIVE METABOLIC 2021-03-17 21:05:00 [facility] PANEL TROPONIN 2021-03-17 21:05:00 [facility] B NATRIURETIC PEPTIDE 2021-03-17 21:05:00 [facility] D-DIMER 2021-03-17 21:05:00 [facility] ESTIMATED GFR 2021-03-17 21:05:00 [facility] ECG ED PRELIMINARY 2021-03-17 20:36:46 [facility] INTERPRETATION ECG 12-LEAD 2021-03-17 20:19:38 [facility] BASIC METABOLIC PANEL (7) 2021-02-12 05:34:00 Alison Prado [facility] MAGNESIUM 2021-02-12 05:34:00 Johan [facility] PHOSPHORUS 2021-02-12 05:34:00 Johan Alison [facility] CBC W/PLT COUNT & AUTO 2021-02-12 04:48:00 Alison Prado I [facility] MR BRAIN WITHOUT IV 2021-02-11 16:08:00 Igor Chew [facility] MRA HEAD WITHOUT IV 2021-02-11 16:07:00 Naina [facility] MRA NECK WITHOUT IV 2021-02-11 16:07:00 Naina [facility] RAPID DRUG SCREEN, URINE 2021-02-11 03:05:00 Johan [facility] URINALYSIS WITH 2021-02-11 03:05:00 [facility] IF INDICATED [facility] URINALYSIS MICROSCOPIC 2021-02-11 03:05:00 Alison Prado [facility] HOMOCYSTEINE 2021-02-11 02:46:[facility]-02[facility]11 02:46[facility] T[facility]FREE T4 IF INDICATED 2021-02-11 02:46:00 [facility] VITAMIN B12 AND FOLATE 2021-02-11 02:46:00 [place] [facility] CBC W/PLT COUNT & AUTO 2021-02-11 02:46:00 Johan Alison [facility] BASIC METABOLIC PANEL (7) 2021-02-11 02:46:00 [facility] MAGNESIUM 2021-02-11 02:46:00 Johan [facility] PHOSPHORUS 2021-02-11 02:46:00 [facility] C-REACTIVE PROTEIN 2021-02-11 02:46:00 [facility] DIGOXIN LEVEL 2021-02-11 02:46:00 [facility] XR CHEST 1 VIEW 2021-02-10 22:20:00 [facility] POCT-GLUCOSE METER 2021-02-10 21:28:00 Wilmer Vera [facility] LIPID PANEL 2021-02-10 21:22:00 [facility] CBC W/PLT COUNT & AUTO 2021-02-10 21:21:00 Johan Alison [facility] COMPREHENSIVE METABOLIC 2021-02-10 21:21:[address] [facility] PROTHROMBIN TIME/INR 2021-02-10 21:21:00 [facility] APTT 2021-02-10 21:21:00 [facility] MAGNESIUM 2021-02-10 21:21:00 [facility] PHOSPHORUS 2021-02-10 21:21:00 [facility] HIGH SENSITIVITY TROPONIN 2021-02-10 21:21:00 [facility] B-TYPE NATRIURETIC FACTOR 2021-02-10 21:21:00 [facility] (BNP) [facility] LACTIC ACID, VENOUS 2021-02-10 21:21:00 [facility] CREATINE KINASE (CK) 2021-02-10 21:21:00 [facility] HEMOGLOBIN A1C 2021-02-10 21:21:00 [facility] ARRYTHMIA IMPLANT REPORT 2021-02-10 00:00:00 Provider, Mino Sharp [facility] - - SCAN Scanning [facility] Plan of Care Planned Activity Planned Date Details Comments Source Future Scheduled 2021-05-[address] [facility] - Test 00:00:00 (#1) [code = [facility] INFLUENZA VACCINE (#1)] Future Scheduled 2020-09-[address] [facility] - Test 00:00:00 (12+) [code = [facility] DEPRESSION SCREENING (12+)] Future Scheduled [address] [facility] es - Test 00:00:00 malignant neoplasm Medical C enter of cervix (procedure) [code = 941030377] Future Scheduled 2000 DTAP/TDAP/TD [facility] - Test 00:00:00 VACCINES (1 - Tdap) [facility] [code = DTAP/TDAP/TD VACCINES (1 - Tdap)] Future Scheduled [address] [facility] - Test 00:00:00 SCREENING [code = Medical Ce nter HEPATITIS C SCREENING] Future Scheduled Screening for [facility] Test malignant neoplasm of cervix (procedure) [code = 363727422] Future Scheduled INFLUENZA VACCINE [facility] [code = INFLUENZA VACCINE] Encounters Start End Encounter Admission Attending Care Care Encounter Source Date/Time Date/Time Type Type Clinicians Facility Department ID 2021-04-29 2021-04-29 Office Malena [facility] 1.2.840.114 [id number] 12:33:16 13:56:43 Visit Tucker Stafford 350.1.13.10 Whately 4.2.7.2.686 Profameenaio [id number] [facility]5 Building 2021-03-19 2021-03-19 Patient Omari 1.2.840.1 [id number] Methodi 00:00:00 00:00:00 Outreach Ann [address]85.1.[address] 3.430.2.7 Hospit a .3.515003 l .8 2021-03-17 2021-03-18 Emergency Hector Alvarez 1.2.840.1 [id number] Methodi 14:59:00 17:52:00 Christa Bolanos 79734.1.[address] Cliff Berkowitz 3.430.2.7 Hospita .3.154306 l .8 2021-03-17 2021-03-18 Outpatient [facility] [id number] [place] 00:00:00 00:00:00 CHRISTA [address] 2021-03-17 2021-03-17 Travel 1.2.840.1 [id number] [id number] Methodi 00:00:00 00:00:[address] 3.430.2.7 0.2[facility]7.3.698 [facility]84.8 l .8 2017-09-06 2017-09-08 Inpatient E [facility] [id number] 10:12:00 02:32:00 [facility] Results Test Description Test Time Test Comments Results Result Comments Source ECG 12 lead 2021-03-19 14:56:41 Test Item Value Reference Range Interpretation Comme nts Ventricular rate (test code = 253) Atrial rate (test code = 255) IL interval (test code = 266) QRSD interval (test code = 260) QT interval (test code = 264) QTC interval (test code = 265) P axis 1 (test code = 267) QRS axis 1 (test code = 268) T wave axis (test code = 270) EKG impression (test code = 273) Normal sinus rhythm with sinus arrhythmia-Normal ECG-In automated comparison with ECG of 17-MAR-2021 15:19,-No significant change was found- [facility] [id number] 12:41:23 Test Item Value Reference Range Interpretation Comments Urine culture isolate Mixed alok <=10-3 (test code = 56976-0) col/cc [facility] CenterTrans[facility]acic Echocardiogram Complete, (w Contrast, Strain and 3D if needed)2021-03-18 23:04:52 Test Item Value Reference Range Interpretation Comments Ao Root Diameter (test code = 2.73 cm 2715009173) AoV Area, Vmax (test code = 2.24 cm2 7374288077) AoV Area, VTI (test code = 2.25 cm2 0255107785) AoV Mean PG (test code = mmHg 1648197586) AoV Peak PG (test code = mmHg 7746571403) AoV Vmax (test code = 7632458623) 1.46 m/s AoV VTI (test code = 0962010842) 0.28 m IVS,d (test code = 7525997203) 0.72 cm IVS/LVPW,2D (test code = 6704889026) Left Atrium Dimension Anterior 2.68 cm (test code = 7819136786) LV,d (test code = 9844604293) 3.69 cm LV EF,2D (test code = 5167036306) 79.68 % LV,s (test code = 8902399050) 2.17 cm LVOT area (test code = 6670545920) 2.75 cm2 LVOT Diam,S (test code = 1.87 cm 3847267570) LVOT Vmax (test code = 8544276463) 1.18 m/s LVOT VTI (test code = 4775870589) 0.23 m LVPWD,d (test code = 6329816046) 0.65 cm PV Pk Grad (test code = 7261804892) mmHg PV VMAX (test code = 9929443094) 0.84 m/s RVOT Vmax (test code = 4681868650) 0.85 m/s RVSP (TR) (test code = 7144797827) mmHg TR Vpeak (test code = 4733502010) 2.86 mm/s MV E A ratio (test code = 1627875694) RA pressure (test code = mmHg 5188113063) TR pk grad (test code = 6643828405) mmHg MR Vmax (test code = 6767817482) 5.49 m/s E wave decelartion time (test code msec = 9705010831) MV Peak A Alf (test code = 0.76 m/s 0548075775) MV valve area p 1/2 method (test 3.26 cm2 code = 0447276395) MV Peak E Alf (test code = 0.92 m/s 8270802108) MV stenosis pressure 1/2 time (test 67.54 ms code = 7494185440) LVOT stroke volume (test code = 0.63 cm3 2530907168) AV LVOT peak gradient (test code = mmHg 0845208682) RVSP (test code = 7766802048) mmHg Ao Root Diameter (test code = 2.73 cm 2427827743) MV mean gradient (test code = mmHg 8427894505) LV SYS VOL (test code = 9395321095) 15.61 ml LV MARTINS VOL (test code = 57.63 ml 0919137915) LA area s A4C (test code = 11.16 cm2 6890418048) LV SV Teich 2D (test code = 42.02 ml 5515090233) LV Vol s Teich PSAX (test code = 15.61 ml 1837587781) MR peak grad (test code = mmHg 6397527795) MV Vmax (test code = 5929064716) 1.21 m MV VTI Tips (test code = 0.24 m 6294837753) RVOT pk grad (test code = mmHg 9398872324) AoV Vmn (test code = 8895796426) LV FS Teich 2D (test code = 0902093043) MV AE ratio (test code = 1690126342) LV FS Cube 2D (test code = 1401798836) LVOT Vmn (test code = 5036183536) Aov area Vmn (test code = 2.13 cm2 3304898413) LVOT mean grad (test code = mmHg 0856849907) MAX Pred HR (test code = 9137137445) 85 of MPHR (test code = 9291104678) Calc MPHR (test code = 7408423592) bpm LV SV Cube 2D (test code = 39.93 ml 9058614923) LV vol d cube 2D (test code = 50.11 ml 2326521667) LV vol s cube 2D (test code = 10.18 ml 9495473641) MV Decel slope (test code = 3.97 m/s2 4439437834) Pred Exer Dur R1 (test code = 9508915380) Pred METS R1 (test code = 5048212515) LA Vol MOD A4C (test code = 24.20 ml 8414539318) Velocity Ratio (V1/V2) (test code = 0.81 m/s 4689) EF (test code = 9768629516) 72.91 % E/A ratio (test code = 9789067050) LVOT VTI (CM) (test code = 23.00 cm 5048336320) SOMMER (test code = SOMMER) [facility] [id number] 17:32:37 Test Item Value Reference Range Interpretation Comments POC glucose (test code = 26688-4) 207 mg/dL 65-99 H Lab Interpretation (test code = Abnormal 72386-9) [facility] duplex venous lower [id number] 01:17:37 EXAMINATION: US DUPLEX VENOUS LOWER EXTREMITY BILATERAL CLINICAL HISTORY: Leg deep vein thrombosis(DVT) suspected COMPARISON: None. TECHNIQUE: Grayscale, color Doppler, and spectral waveform analysis of the bilateral lower extremity deep venous systems was performed. The bilateral common femoral,superficial femoral, proximal deep femoral, greater saphenous, and popliteal veins were evaluated. The calf vessels were also evaluated. FINDINGS:The bilateral common femoral, superficial femoral, and popliteal veins are compressible. They demonstrate normal venous waveforms and response to augmentation. There is flow in the visualized calf veins.There is no evidence of a popliteal or Segal's cyst. IMPRESSION: Normal bilateral lower extremity venous Doppler examination. There is no evidence of deep venous thrombosis. [facility]-[id number] Interface, Radiology Results Incoming 03/17/2021 8:20 PM CDT EXAMINATION: US DUPLEX VENOUS LOWER EXTREM ITY BILATERALCLINICAL HISTORY: Leg deep vein thrombosis (DVT) suspectedCOMPARISON: None.TECHNIQUE: Grayscale, color Doppler, and spectral waveform analysis of the bilateral lower extremity deep venous systems was performed. The bilateral common femoral, superficial femoral, proximal deep femoral, greater saphenous, and popliteal veins were evaluated. The calf vessels were also evaluated.FINDINGS:The bilateral common femoral, superficial femoral, and popliteal veins are compressible. They demonstrate normal venous waveforms and response to augmentation. There is flow in the visualized calf veins.There is no evidence of a popliteal or Segal's cyst.IMPRESSION:Normal bilateral lower extremity venous Doppler examination. There is no evidence of deep venous thrombosis.[facility]-[id number] HospitalXR Chest 1 Vw [id number] 21:32:52EXAMINATION: XR CHEST 1 VW PORTABLE CLINICAL HISTORY: 40 years Female SOB COMPARISON: None. IMPRESSION: Lines, tubes, and devices: Right-sided transvenous cardiac pacemaker. Heart and mediastinum: Cardiomediastinal silhouette is normal. Lungs and pleura: There is no focal airspace disease, pleuraleffusion or pneumothorax. Bones/soft tissues: No acute osseous abnormality. [facility]-[id number] Dictatedand approved by residential designer/fellow: Cristhian Calixto M.D. I, Jan Scott MD, personally reviewed the images and resident's/fellow's findings and agree with the final report. Interface, Rad iology Results Incoming - 03/17/2021 4:35 PM CDTFormatting of this note might be different from theoriginal.EXAMINATION: XR CHEST 1 VW PORTABLECLINICAL HISTORY: 40 years Female SOBCOMPARISON: None.IMPRESSION:Lines, tubes, and devices: Right-sided transvenous cardiac pacemaker.Heart and mediastinum: Cardiomediastinal silhouette is normal.Lungs and pleura: There is no focal airspace disease, pleural effusion or pneumothorax.Bones/soft tissues: No acute osseous abnormality.[facility]-[id number] and approved by residential designer/fellow: Cristhian Calixto M.D.I, Jan Scott MD, personally rev iewed the images and resident's/fellow's findings and agree with the final report.[facility] CenterARRYTHMIA IMPLANT REPORT - [id number] 20:45:31 Ordered by an unspecified provider.[facility] Preliminary Interpretation - Not an [id number] 20:36:46 Test Item Value Reference Range Interpretation Comments SOMMER (test code = SOMMER) Lab Interpretation (test code = Abnormal 73883-7) [facility] CenterBasi Metabolic [id number] 07:01:00 Test Item Value Reference Range Interpretation Comments Sodium (test code = 137 meq/L 772-744 2730-2) Potassium (test code = 4.3 meq/L 3.5-5.1 2823-3) Chloride (test code = 104 meq/L 98-107 2075-0) CO2 (test code = 24 meq/L 22-29 2028-9) BUN (test code = 15 mg/dL 7-21 3094-0) Creatinine (test code 0.81 mg/dL 0.57-1.25 = 2160-0) Glucose (test code = 108 mg/dL 70-105 H 2345-7) Calcium (test code = 9.2 mg/dL 8.4-10.2 19510-0) EGFR (test code = 79 mL/min/1.73 [place] [address]-4) NOT ACCURATE CREATININE CLEARANCE IN PREDICTING GLOMERULAR FILTRATION RATE . ESTIMATED GFR I S NOT APPLICABLE FOR DIALYSIS PATIENTS. SOMMER (test code = SOMMER) Dietist ID - PIAYA L Lab Interpretation Abnormal (test code = 86148-9) [facility] Hospital[facility]esium2021-05-21 07:01:00 Test Item Value Reference Range Interpretation Comments Magnesium (test code = 2.5 mg/dL 1.6-2.6 41236-2) SOMMER (test code = SOMMER) Dietist ID - PIAYA L Lab Interpretation (test Normal code = 58412-9) [facility] Hospital[facility]osphorus2021-[facility]-21 07:01:00 Test Item Value Reference Range Interpretation Comments Phosphorus (test code = 4.3 mg/dL 2.3-4.7 2777-1) SOMMER (test code = SOMMER) Dietist ID - MACHELLE L Lab Interpretation (test Normal code = 73254-3) [facility] HospitalBASIC METABOLIC [id number] 07:01:00 Test Item Value Reference Range Interpretation [...] S NOT APPLICABLE FOR DIALYSIS PATIEN TS. Dietist ID - MACHELLE CUDIVQTUUV9088-68-63 07:01:00 Test Item Value Reference Range Interpretation Comments MAGNESIUM (BEAKER) (test code = 2.5 mg/dL 1.6-2.6 627) Dietist ID - MACHELLE TVDAEJPJFSN9378-05-53 07:01:00 Test Item Value Reference Range Interpretation Comments PHOSPHORUS (BEAKER) (test code = 4.3 mg/dL 2.3-4.7 604) Dietist ID - MACHELLE LCBC with platelet count + automated [id number] 05:37:00 Test Item Value Reference Range Interpretation Comments WBC (test code = 6690-2) 6.8 See_Comment [A utomated message] The system [employer] generated this result transmitted ref erence range: 3.5 - 10 .5 K/L. The refe rence range was not u sed to interpret this result as normal/abnor mal. RBC (test code = 789-8) 5.14 See_Comment [Au tomated message] The system [employer] generated this result transmitted ref erence range: 3.93 - 5 .22 M/L. The refe rence range was not u sed to interpret this result as normal/abnor mal. MCHC (test code = 786-4) 31.6 See_Comment L [A utomated message] The system [employer] generated this result transmitted ref erence range: [...] See_Comment [Aut omated message] 777-3) The system [employer] generated this result transmitted ref erence range: 150 - 45 0 K/CU MM. The referen ce range was not u sed to interpret this result as normal/abnor mal. MPV (test code = 10.0 fL 9.4-12.3 13613-3) nRBC (test code = 413) 0 See_Comment [Aut omated message] The system [employer] generated this result transmitted ref erence range: [...] See_Comment [Aut omated message] 670) The system [employer] generated this result transmitted ref erence range: 1.56 - 6 .13 K/L. The refe rence range was not u sed to interpret this result as normal/abnor mal. # Lymphs (test code = 2.10 See_Comment [Auto mated message] 414) The system [employer] generated this result transmitted ref erence range: 1.18 - 3 .74 K/L. The refe rence range was not u sed to interpret this result as normal/abnor mal. # Monos (test code = 0.48 See_Comment H [Autom ated message] 415) The system [employer] generated this result transmitted ref erence range: 0.24 - 0 .36 K/L. The refe rence range was not u sed to interpret this result as normal/abnor mal. # Eos (test code = 416) 0.26 See_Comment [Au tomated message] The system [employer] generated this result transmitted ref erence range: 0.04 - 0 .36 K/L. The refe rence range was not u sed to interpret this result as normal/abnor mal. # Baso (test code = 417) 0.04 See_Comment [A utomated message] The system [employer] generated this result transmitted ref erence range: 0.01 - 0 .08 K/L. The refe rence range was not u sed to interpret this result as normal/abnor mal. Immature 1 % 0-1 Granulocytes-Relative (test code = 2801) Lab Interpretation (test Abnormal code = 66869-6) [facility] W/PLT COUNT & AUTO [id number] 05:37:00 Test Item Value Reference Range Interpretation [...] code = 2801) MR, MRA, BRAIN, WITHOUT [id number] 16:54:00Reason for exam:->Ischemic Stroke EvaluationS[facility]EL : 1980 Sex: FFINAL REPORT MR, BRAIN, WITHOUT CONTRAST, MR, MRA, BRAIN, WITHOUT CONTRAST, MR, MRA, NECK, WITHOUT IV CONTRAST INDICATION: Stroke, follow upIschemic Stroke Evaluation TECHNIQUE: Multiplanar, multisequence MR imaging of the brain without intravenous contrast.MRA of the head utilizing 3-D gmpf-hc-nnmdck technique, with 3-D reconstructions.MRA of the neck utilizing 2-D and 3-D dlvc-bi-ecdnla technique, with 3-D reconstructions. COMPARISON: MRI and [...] 02/11/2021 16:54:16 MR, MRA, NECK, WITHOUT IV [id number] 16:54:00Reason for exam:->Ischemic Stroke Evaluation [facility] : 1980 Sex: FFINAL REPORT MR, BRAIN, WITHOUT CONTRAST, MR, MRA, BRAIN, WITHOUT CONTRAST, MR, MRA, NECK, WITHOUT IV CONTRAST INDICATION: Stroke, follow upIschemic Stroke Evaluation TECHNIQUE: Multiplanar, multisequence MR imaging of the brain without intravenous contrast.MRA of the head utilizing 3-D zpms-sv-oithoq technique, with 3-D reconstructions.MRA of the neck utilizing 2-D and 3-D fqcb-my-pdfghj technique, with 3-D reconstructions. COMPARISON: MRI and [...] Amador MDReport Verified Date/Time: 02/11/2021 16:54:16 MR, BRAIN, WITHOUT [id number] 16:54:00Reason for exam:->Ischemic Stroke Evaluation [facility] : 1980 Sex: FFINAL REPORT MR, BRAIN, WITHOUT CONTRAST, MR, MRA, BRAIN, WITHOUT CONTRAST, MR, MRA, NECK, WITHOUT IV CONTRAST INDICATION: Stroke, follow upIschemic Stroke Evaluation TECHNIQUE: Multiplanar, multisequence MR imaging of the brain without intravenous contrast.MRA of the head utilizing 3-D attf-xu-wgetse technique, with 3-D reconstructions.MRA of the neck utilizing 2-D and 3-D azbg-ug-bogheo technique, with 3-D reconstructions. COMPARISON: MRI and [...] Date/Time: 02/11/2021 16:54:16 MR brain without IV [id number] 16:54:00Interface, External Ris In - 02/11/2021 4:56 PM CDTFINAL REPORT MR, BRAIN, WITHOUT CONTRAST, MR, MRA, BRAIN, WITHOUT CONTRAST, MR, MRA, NECK, WITHOUT IV CONTRAST INDICATION: Stroke, follow upIschemic Stroke Evaluation TECHNIQUE: Multiplanar, multisequence MR imaging of the brain without intravenous contrast.MRA of the head utilizing 3-D hrdt-ry-qmcqfj technique, with 3-D reconstructions.MRA of the neck utilizing 2-D and 3-D kbdc-zl-vhvrkn technique, with 3-D reconstructions. COMPARISON: MRI and [...] Signed: Lakshmi Amador Verified Date/Time: 02/11/2021 16:54:16 [facility] [id number] 16:54:00Interface, External Ris In - 02/11/2021 4:56 PM CDTFINAL REPORT MR, BRAIN, WITHOUT CONTRAST, MR, MRA, BRAIN, WITHOUT CONTRAST, MR, MRA, NECK, WITHOUT IV CONTRAST INDICATION: Stroke, follow upIschemic Stroke Evaluation TECHNIQUE: Multiplanar, multisequence MR imaging of the brain without intravenous contrast.MRA of the head utilizing 3-D znqy-ud-qntxyj technique, with 3-D reconstructions.MRA of the neck utilizing 2-D and 3-D edcx-la-irbowp technique, with 3-D reconstructions. COMPARISON: MRI and [...] within the head and neck. Signed: Lakshmi Aamdor Verified Date/Time: 02/11/2021 16:54:16 [facility] without IV [id number] 16:54:00Interface, External Ris In - 02/11/2021 4:56 PM CDTFINAL REPORT MR, BRAIN, WITHOUT CONTRAST, MR, MRA, BRAIN, WITHOUT CONTRAST, MR, MRA, NECK, WITHOUT IV CONTRAST INDICATION: Stroke, follow upIschemic Stroke Evaluation TECHNIQUE: Multiplanar, multisequence MR imaging of the brain without intravenous contrast.MRA of the head utilizing 3-D vtam-sd-kkxpxb technique, with 3-D reconstructions.MRA of the neck utilizing 2-D and 3-D dnrt-if-ubxmvc technique, with 3-D reconstructions. COMPARISON: MRI and [...] Signed: Lakshmi Amador Verified Date/Time: 02/11/2021 16:54:16 [facility] Test Item Value Reference Range Interpretation Comments RPR (test code = 15788-2) Nonreactive Nonreactive Lab Interpretation (test code = Normal 02991-4) [facility]PR20[facility] 14:02:00 Test Item Value Reference Range Interpretation Comments RPR SCREEN (BEAKER) (test code = Nonreactive Nonreactive 420) Hemoglobin [id number] 09:35:00 Test Item Value Reference Range Interpretation Comments Hemoglobin A1C (test code = 4548-4) 6.0 % 4.3-6.1 Lab Interpretation (test code = Normal 92672-0) [facility] HospitalHEMOGLOBIN [id number] 09:35:00 Test Item Value Reference Range Interpretation Comments HEMOGLOBIN A1C (BEAKER) (test code = 6.0 % 4.3-6.1 368) Rapid drug screen, [id number] 07:26:00 Test Item Value Reference Range Interpretation Comments Barbiturate Screen Negative Negative (test code = 91362-3) Benzodiazepine Screen Negative Negative (test code = 87910-9) Cocaine (Metab.) Negative Negative Screen (test code = 3397-7) Methadone Screen (test Negative Negative code = 17698-8) Opiate Screen (test Negative Negative code = 94454-3) Cannabinoid Screen Negative Negative (test code = 50157-1) Amph/Methamph Screen Negative Negative (test code = 46843-0) Phencyclidine Screen Negative Negative (test code = 84205-6) pH, UA (test code = 6.5 5.0-8.0 5803-2) SOMMER (test code = SOMMER) DRUG CUTOFF CONC.Cocaine 300 ng/mL Cannabinoid 50 ng/mLBenzodiazepine 200 ng/mLBarbiturate 200 ng/mLPhencyclidine 25 ng/mLOpiate 300 ng/mLMethadone 300 ng/mLAmphetamine/ 1000 ng/mL Methamphetamine This assay provides an unconfirmed qualitative test result for the clinical management of patients in emergency situations. Chain of custody not maintained. Some wesh-irq-shekedk medications, as well as adulterants, may cause inaccurate results. Clinical correlation should be applied. A more comprehensive drug screen or confirmation of a detected drug may be performed upon request.Dietist ID - VIET M Lab Interpretation Normal (test code = 82248-4) [facility] HospitalR[facility] SCREEN, [id number] 07:26:00 Test Item Value Reference Range Interpretation [...] situations. Chain of custody not maintained. Some yerg-hjy-nxziaqe medications, as well as adulterants, may cause inaccurate results. Clinical correlation should be applied. A more comprehensivedrug screen or confirmation of a detected drug may be performed upon request.Dietist ID - VIET MUrinalysis with Microscopic If [id number] 07:11:00 Test Item Value Reference Range Interpretation Comments Color, UA (test code = Light Yellow 5778-6) Clarity, UA (test code = Clear 5767-9) Specific [place], UA (test 1.012 1.001-1.035 code = 5811-5) pH, UA (test code = 6.5 5.0-8.0 5803-2) Protein, UA (test code = Negative Negative 57627-3) Glucose, UA (test code = Negative Negative 365) Ketones, UA (test code = Negative Negative 2514-8) Bilirubin, UA (test code = Negative Negative 02483-0) Blood, UA (test code = Small Negative A 54180-2) Nitrite, UA (test code = Negative Negative 5802-4) Leukocytes, UA (test code Small Negative A = 5799-2) Urobilinogen, UA (test 0.2 mg/dL 0.2-1 code = 69633-8) Specimen Source (test code = 2795) SOMMER (test code = SOMMER) Dietist ID - [auto]Dietist ID - tech Lab Interpretation (test Abnormal code = 31373-4) [facility] HospitalUrinalysis Microscopic [id number] 07:11:00 Test Item Value Reference Range Interpretation Comments RBC, UA (test 11 See_Comment [Automated me ssage] code = 56424-4) The system w [facility] generated this result transmitted ref erence range: /HPF. Th e reference range was not used to int erpret this result as normal/abnormal . WBC, UA (test 11 See_Comment [Automated me ssage] code = 5821-4) The system [facility] generated this result transmitted ref erence range: /HPF. Th e reference range was not used to int erpret this result as normal/abnormal . Mucus (test Rare code = 8247-9) Squam Epithel, 3 See_Comment [Automated m essage] UA (test code = The system w [facility] 76499-2) generated this result transmitted ref erence range: /HPF. Th e reference range was not used to int erpret this result as normal/abnormal . SOMMER (test code Dietist ID - tech = SOMMER) [facility] HospitalURINALYSIS WITH MICROSCOPIC IF [id number] 07:11:00 Test Item Value Reference Range Interpretation [...] = 463) SOURCE(BEAKER) (test code = 2795) Dietist ID - [auto]Dietist ID - techURINALYSIS BHTTLZHBWUV4868-48-44 07:11:00 Test Item Value Reference Range Interpretation Comments RBC UA (BEAKER) (test code = 519) 11 /HPF WBC UA (BEAKER) (test code = 520) 11 /HPF MUCUS (BEAKER) (test code = 1574) Rare SQUAMOUS EPITHELIAL (BEAKER) (test 3 /HPF code = 516) Dietist ID - techDigoxin nlpxi6075-71-51 06:22:00 Test Item Value Reference Range Interpretation Comments Digoxin Lvl (test code = <0.30 0.8-2 L 79481-3) SOMMER (test code = SOMMER) Dietist ID - PIAYA L Lab Interpretation (test Abnormal code = 88150-5) [facility] HospitalDIGOXIN [id number] 06:22:00 Test Item Value Reference Range Interpretation Comments DIGOXIN LEVEL (BEAKER) (test code = < ng/mL 0.80-2.00 L 669) Dietist ID - SHAMIKAAYA KVbwjhetiqoxi2713-71-76 05:58:00 Test Item Value Reference Range Interpretation Comments Homocysteine (test code = 7.3 umol/L 5.1-15.4 81063-2) SOMMER (test code = SOMMER) Dietist ID - PIAYA L Lab Interpretation (test Normal code = 59681-7) [facility] HospitalTSH/Free T4 If [id number] 05:58:00 Test Item Value Reference Range Interpretation Comments TSH (test code = 4.368 See_Comment [Automated 40204-1) message] The system which generated this result transmit aida reference range : 0.350 - 4.940 uIU/mL. The reference range was not used to interpret this result as normal/abnormal . SOMMER (test code = SOMMER) Dietist ID - MACHELLE L Lab Interpretation Normal (test code = 07476-8) [facility] HospitalVitamin B12 and [id number] 05:58:00 Test Item Value Reference Range Interpretation Comments Vitamin B12 (test 557 pg/mL 213-816 code = 2132-9) Folate (test code = 11.20 ng/mL See_Comment [Automa aida 2284-8) message] The system which generated this result transmit aida reference range : >=7.00. The reference range was not used to interpret this result as normal/abnormal . SOMMER (test code = SOMMER) Dietist ID - PIAYA L Lab Interpretation Normal (test code = 08565-2) [facility] [facility] 05:58[facility]00 Test Item Value Reference Range Interpretation Comments HOMOCYSTEINE (BEAKER) (test code = 7.3 umol/L 5.1-15.4 642) Dietist ID - MACHELLE LTSH/FREE T4 IF [id number] 05:58:00 Test Item Value Reference Range Interpretation Comments THYROID STIMULATING HORMONE 4.368 uIU/mL 0.350-4.940 (BEAKER) (test code = 772) Dietist ID - MACHELLE LVITAMIN B12 AND [id number] 05:58:00 Test Item Value Reference Range Interpretation Comments VITAMIN B12 557 pg/mL 213-816 (BEAKER) (test code = 774) FOLATE (BEAKER) 11.20 ng/mL See_Comment [Automated message] (test code = 362) The system which generated this result transmitted ref erence range: >=7.00. The reference range was not used to interpr et this result as normal/abnormal . Dietist ID - MACHELLE LC-Reactive Wzigkkh1392-26-72 04:54:00 Test Item Value Reference Range Interpretation Comments CRP (test code = 676) 0.81 mg/dL 0-0.5 H SOMMER (test code = SOMMER) Dietist ID - MACHELLE L Lab Interpretation (test Abnormal code = 48723-3) [facility] 04:54:00 Test Item Value Reference Range Interpretation Comments MAGNESIUM (BEAKER) 2.1 mg/dL 1.6-2.6 Specimen slightly (test code = 627) hemolyzed Dietist ID - MACHELLE [id number] 04:54:00 Test Item Value Reference Range Interpretation Comments PHOSPHORUS (BEAKER) 4.3 mg/dL 2.3-4.7 Specimen slightly (test code = 604) hemolyzed Dietist ID - MACHELLE LBASIC METABOLIC UFRSZ8427-03-95 04:54:00 Test Item Value Reference Range Interpretation [...] S NOT APPLICABLE FOR DIALYSIS PATIEN TS. Dietist ID - PIAYA LC-REACTIVE [id number] 04:54:00 Test Item Value Reference Range Interpretation Comments C-REACTIVE PROTEIN (BEAKER) (test 0.81 mg/dL 0.00-0.50 H code = 676) Dietist ID - PIAYA LCBC W/PLT COUNT & AUTO [id number] 02:54:00 Test Item Value Reference Range Interpretation [...] = 2801) RAD, CHEST, 1 VIEW, NON [id number] 22:40:00Reason for exam:->strokeShould this be performed at the bedside?->Yes [facility] 1980 Sex: FFINAL REPORT RAD, CHEST, 1 VIEW, NON DEPT TECHNIQUE: Frontal view(s) of the chest. INDICATION: stroke. COMPARISON: 08/20/2018 chest radiograph FINDINGS/IMPRESSION: Lines/Tubes: Unchanged 2-lead pacemaker Lungs/pleura: No focal consolidation or definite interstitial pulmonary edema. No pleural effusion. No pneumothorax. Heart and Mediastinum: Unremarkable. Soft Tissues and Bones: Unremarkable. Signed: Wilmer Nievesort Verified Date/Time: 02/10/2021 22:40:02 Reading Location: [address] Transitional Reading Room XR chest 1 view portable / [id number] 22:40:00Interface, External Ris In - 02/10/2021 10:42 [...] Nieves Verified Date/Time: 02/10/2021 22:40:02 Reading Location: [address] Transitional Reading [facility] & AUTO [id number] 22:16:00 Test Item Value Reference Range Interpretation [...] Range Interpretation Comments BNP (test code = 06116-1) <10 0-100 SOMMER (test code = SOMMER) Dietist ID - BS Lab Interpretation (test Normal code = 12479-4) [facility] Hospital[facility] NATRIURETIC FACTOR (BNP)2021-02-10 22:04:00 Test Item Value Reference Range Interpretation Comments B-TYPE NATRIURETIC PEPTIDE (BEAKER) < pg/mL 0-100 (test code = 700) Dietist ID - BSHigh Sensitivity Troponin I ([facility]/[place] Only)2021-02-10 21:57:00 Test Item Value Reference Range Interpretation Comments Troponin I HS <4 See_Comment [Automated (test code = message] The 47684-5Qualtré system which generated this result transmitted reference range : <=17 pg/ml. The reference range was not used to interpret this result as normal/abnormal . SOMMER (test code = Dietist ID - SOMMER) BSThe MARINE OILER STAT High Sensitivity Troponin-I results should be used in conjunction with other diagnostic information such as ECG, clinical observations and information, and patient symptoms to aid in the diagnosis of KS. Lab Interpretation Normal (test code = 16872-2) [facility]ENSITIVITY TROPONIN [id number] 21:57:00 Test Item Value Reference Range Interpretation Comments HIGH SENSITIVITY < pg/ml See_Comment [Automated message] TROPONIN I (test code = The system which 8667019) generated this result transmitted ref erence range: <=17. Th e reference range was not used to interpr et this result as normal/abnormal . Dietist ID - BSThe MARINE OILER STAT High Sensitivity Troponin-I results should be used in conjunctionwith other diagnostic information such as ECG, clinical observations and information, and patient symptoms to aid in the diagnosis of [place].Lipid [id number] 21:54:00 Test Item Value Reference Range Interpretation Comments Triglycerides (test 171 mg/dL Specimen code = 2571-8) markedly hemolyzed Cholesterol (test 218 mg/dL Specimen code = 2093-3) markedly hemolyzed HDL (test code = 47 mg/dL 2084-9) LDL Calculated (test 137 mg/dL code = 01990-3) SOMMER (test code = Triglyceride SOMMER) Reference Range: Low Risk <150 Borderline 150-199 High Risk 200-499 Very High Risk >=500 Cholesterol Reference Range: Low Risk <200 Borderline 200-239 High Risk >240 HDL Cholesterol Reference Range: Low Risk >=60 High Risk <40 LDL Cholesterol Reference Range: Optimal <100 Near Optimal 100-129 Borderline 130-159 High 160-189 Very High >=190 Dietist ID - BS [facility] HospitalLIPID [id number] 21:54:00 Test Item Value Reference Range Interpretation [...] Borderline 130-159 High 160-189 Very High >=190 Dietist ID - BSComprehensive metabolic [id number] 21:52:00 Test Item Value Reference Range Interpretation Comments Protein, Total 8.0 See_Comment Specimen slig htly (test code = hemolyzed 2885-2) [Automated message] The system which generated this result transmit aida reference range : 6.0 - 8.3 gm/dL . The reference range was not u sed to interpret th is result as normal/abnormal . Albumin (test code 4.2 g/dL 3.5-5 Specimen slightly = 43235-4) hemolyzed Alkaline 135 U/L 40-150 Phosphatase (test code = 6768-6) Total Bilirubin 0.2 mg/dL 0.2-1.2 Specimen i ghtly (test code = hemolyzed 1974-2) Sodium (test code = 139 meq/L 816-450 0708-2) Potassium (test 4.5 meq/L 3.5-5.1 Specimen i ghtly code = 2823-3) hemolyzed Chloride (test code 103 meq/L 98-107 = 2075-0) CO2 (test code = 25 meq/L 22-29 2027-) BUN (test code = 9 mg/dL 7- 3094-0) Creatinine (test 0.78 mg/dL 0.57-1.25 Specimen ightly code = 2160-0) hemolyzed Glucose (test code 105 mg/dL 70-105 = 2345-7) Calcium (test code 9.6 mg/dL 8.4-10.2 = 88175-4) AST (test code = 28 U/L 5-34 Specimen sl ightly 1920-8) hemolyzed ALT (test code = 52 U/L 6-55 Specimen sl ightly 1742-6) hemolyzed EGFR (test code = 82 mL/min/1.73 [place] [address]-2) NOT ACCURATE CREATININE CLEARANCE IN PREDICTING GLOMERULAR FILTRATION RATE . ESTIMATED GFR I S NOT APPLICABLE FOR DIALYSIS PATIEN TS. NOVOA (test code = Dietist ID - BS SOMMER) [facility] HospitalCreatine Kinase (CK)2021-02-10 21:52:00 Test Item Value Reference Range Interpretation Comments Total CK (test code = 70 U/L 29-200 2157-6) SOMMER (test code = SOMMER) Dietist ID - BS Lab Interpretation (test Normal code = 73561-5) [facility]20[facility] 21:52:00 Test Item Value Reference Range Interpretation Comments MAGNESIUM (BEAKER) 2.2 mg/dL 1.6-2.6 Specimen slightly (test code = 627) hemolyzed Dietist ID - KUGLBLFOWJIP8848-30-98 21:52:00 Test Item Value Reference Range Interpretation Comments PHOSPHORUS (BEAKER) 4.4 mg/dL 2.3-4.7 Specimen slightly (test code = 604) hemolyzed Dietist ID - BSCOMPREHENSIVE METABOLIC [id number] 21:52:00 Test Item Value Reference Range Interpretation [...] S NOT APPLICABLE FOR DIALYSIS PATIEN TS. Dietist ID - BSCREATINE KINASE (CK)2021-02-10 21:52:00 Test Item Value Reference Range Interpretation Comments CREATINE KINASE TOTAL (BEAKER) (test 70 U/L 29-200 code = 380) Dietist ID - DYpDWU5128-03-30 21:46:00 Test Item Value Reference Range Interpretation Comments PTT (test code = 68330-3) 30.5 See_Comment [ Automated message] The system [employer] generated this result transmitted ref erence range: 22.5 - 3 6.0 seconds. The re ference range was not u sed to interpret this result as normal/abnor mal. Lab Interpretation (test Normal code = 92827-2) [facility] HospitalLactic acid, [id number] 21:46:00 Test Item Value Reference Range Interpretation Comments Lactate, Venous (test 1.96 mmol/L 0.5-2.2 Specim en code = 2872) markedly hemolyzed SOMMER (test code = SOMMER) Dietist ID - BS Lab Interpretation Normal (test code = 79462-7) [facility] HospitalAPTT2021-05-19 21:46:00 Test Item Value Reference Range Interpretation Comments PARTIAL THROMBOPLASTIN TIME 30.5 seconds 22.5-36.0 (BEAKER) (test code = 760) LACTIC ACID, [id number] 21:46:00 Test Item Value Reference Range Interpretation Comments LACTATE BLOOD VENOUS 1.96 mmol/L 0.50-2.20 Specime n markedly (2) (BEAKER) (test hemolyzed code = 2872) Dietist ID - BSProthrombin time/PEB7076-42-80 21:45:00 Test Item Value Reference Interpretation Comments [...] valves. Lab Interpretation Normal (test code = 67578-9) [facility] HospitalPROTHROMBIN TIME/[id number] 21:45:00 Test Item Value Reference Range Interpretation Comments PROTIME (BEAKER) 12.7 seconds 11.9-14.2 (test code = 759) INR (BEAKER) (test 0.98 See_Comment [Automat ed message] code = 370) The system [employer] generated this result transmitted ref erence range: <=5.90. The reference range was not used to int erpret this result as normal/abnormal . RECOMMENDED COUMADIN/WARFARIN INR THERAPY RANGESSTANDARD DOSE: 2.0 - 3.0 Includes: PROPHYLAXIS forvenous thrombosis, systemic embolization; TREATMENT for venous thrombosis and/or pulmonary embolus.HIGH RISK: Target INR is 2.5-3.5 for patients with mechanical heart valves.POC-Glucose [id number] 21:39:00 Test Item Value Reference Range Interpretation Comments POC-Glucose Meter (test 93 mg/dL 70-110 : TE STED AT [facility] code = 1538) [address] [facility] [place], [address]: Dietist/Techni rhonda ID = [id number] for AILYN JAVIER Lab Interpretation (test Normal code = 60463-6) [facility] HospitalPOCT-GLUCOSE [id number] 21:39:00 Test Item Value Reference Range Interpretation Comments POC-GLUCOSE METER 93 mg/dL 70-110 : TESTED Yara Quach [facility] [address] ([address]) (test code = [place], 1538) [address]: Dietist/Techni rhonda ID = [id number] for GERTRUDE SHAY [id number] 15:45:00 Test Item Value Reference Range Interpretation Comments SURG (test code = SURG) RUN DATE: 09/30/20 [facility] - [facility] PAGE 1 RUN TIME: 1545 Specimen Inquiry RUN USER: INTERFACE PATIENT: ADAM MARSH LOC: [place] U #: [id number] AGE/SX: 40/F ROOM: RE09/29/20REG DR: Linus Boone MD : [birth year] BED: DIS: STATUS: DEP [facility] TLOC: SPEC #: PMC:[id number] RECD: 09/29/20 STATUS: MACIEL REChapis #: [id number] WU: 09/29/[address]: Linus Boone MD ENTERED: 09/29/20 SP TYPE: SURG OTHR DR: Undefined Provider ORDERED: SURG PATH LVL 4 COPIES TO: Linus Boone MD [address] [place] [id number] Undefined Provider HISTOLOGY: TISSUE ID BLK PCS DHIRAJ LEV PROCEDURE DISPOSITION ____ ___ ___ ___ STOMACH, NOS A 1 2 PROCEDURES: SURG PATH LVL 4 (09/29/20) TISSUES: A. STOMACH, NOS - GASTRIC BIOPSY CLINICAL HISTORY R10.13, K21.9, K92.0, R14.0, R11.2, R19.7, R19.4 CPT CODES CPT CODE(S): 14936 , , , , , , FINAL DIAGNOSIS Stomach, biopsy: MILD CHRONIC GASTRITIS NEGATIVE FOR INTESTINAL METAPLASIA, DYSPLASIA, OR MALIGNANCY NEGATIVE FOR HELICOBACTER PYLORI ORGANISMS GROSS DESCRIPTION Gastric biopsy. Received in formalin are two wilkinson tissue fragments, 0.4 cm each, all as A. bk/nr Grossing performed at [facility] Pathology, [address] [place] [address], [address], [place] [address]. Philosophy Instructor: Aditya Hanson M.D. CONTINUED ON NEXT PAGE RUN DATE: 09/30/20 [facility] PAGE 2 RUN TIME: 1545 Specimen Inquiry RUN USER: INTERFACE SPEC #: [facility]:[id number] PATIENT: ADAM MARSH #[id number] (Continued) MICROSCOPIC DESCRIPTION Gastric biopsy. Sections demonstrate gastric mucosa with mild chronic inflammation. No dysplasia or malignancy is identified. No evidence of Helicobacter pylori organisms or intestinal metaplasia is seen. Signed SIGNATURE ON FILE Hector Issa 09/30/20 1545 END OF REPORT COVID 19 INHOUSE [id number] 13:41:00 Test Item Value Reference Range Interpretation Comments COVID 19 INHOUSE AG NEGATIVE Negative Per [facility] facturer, (test code = negative result s should [id number]) be treated aspr esumptive and, if inconsi [...] symptoms co nsistent with COVID-19. BASIC METABOLIC [id number] 13:40:00 Test Item Value Reference Range Interpretation [...] MG/DL 8.5-10.1 N - XR CHEST 1 [id number] 13:33:00 [facility] 1980 Sex: F Name: ADAM MARSH [facility] : [birth year] Age/S: 40 / F [address] Unit #: [id number] Loc: [place] [address] Phys: Linus Boone MD Acct: [id number] Dis Date: Status: PRE INC PHONE #: [phone] Exam Date: 09/28/2020 1326 FAX #: Reason: PREOP EXAMS: CPT: [id number] XR CHEST 1 V 21039 Fluoro Time: DAP (Gy m2): Air Kerma [...] normal. IMPRESSION: No acute cardiopulmonary process. at 1313 Reported and signed by: Lynda Pitts M.D. CC: Linus Boone MD PAGE 1 Signed Report Name: ADAM MARSH [place] : 1980 Age/S: 40 / F [facility]: [id number] Loc: [place] [address] Phys: Linus Boone MD Acct: [id number] Dis Date: Status: PRE [facility] PHONE #: [phone] Exam Date: 09/28/2020 1326 FAX #: Reason: PREOP EXAMS: CPT: [id number] XR CHEST 1 V 88507 Fluoro Time: DAP (Gy m2): Air Kerma (mGy): <Continued> Technologist: Shari Davila RT(R)(CT) Trnscb Date/Time: 09/28/2020 (2965) 16 Orig Print D/T: S: 09/28/2020 (2274) PAGE 2 SignedReportPROTHROMBIN [id number] 13:29:00 Test Item Value Reference Range Interpretation Comments PT PATIENT (test code = PTP) 10.6 SECONDS 9.3-12.9 N INTERNATIONAL NORMAL RATIO 0.95 INR Unit 0.8-1.2 N (test code = INR) THROMBOPLASTIN TIME [id number] 13:29:00 Test Item Value Reference Range Interpretation Comments THROMBOPLASTIN TIME PARTIAL 28.0 SECONDS 26-35 N (test code = PTT) CBC W/AUTO [id number] 13:26:00 Test Item Value Reference Range Interpretation [...] code NO DIFF/SCN CRITERIA = MDIFF) POCT-GLUCOSE [id number] 10:22:00 Test Item Value Reference Range Interpretation Comments POC-GLUCOSE METER 102 mg/dL 70-110 TESTED AT [facility] [address] ([address]) (test code = [place] 1538) [address] MR, MRA, BRAIN, WITHOUT [id number] 09:32:00Reason for exam:->Ischemic Stroke EvaluationFINAL REPORT MRA Head CLINICAL HISTORY: Ischemic Stroke TECHNIQUE: MRA of the head utilizing 3-D mnce-ql-ptnrnt technique, with 3-D reconstructions. COMPARISON: None FINDINGS: There is no evidence of intracranial aneurysm, focal stenosis, or major branch vessel occlusion. IMPRESSION: No evidence for a major [place] proximal branch vessel occlusion. MRA Neck CLINICAL HISTORY: Ischemic Stroke TECHNIQUE: MRA of the neck utilizing 2-D and 3-D eoxd-ly-rojary technique, with 3-D reconstructions. COMPARISON: None FINDINGS: The carotid arteries in the neck are patent including their bifurcations. There is antegrade flow in the vertebral arteries in the neck. IMPRESSION: No evidence of hemodynamically significant stenosis in the cervical carotid or vertebral arteries by NASCET criteria. Signed: Santos Winn MDReport Verified Date/Time: 08/21/2018 09:32:09 Reading Location: [address] Neuro Reading Room MR, MRA, NECK, WITHOUT IV [id number] 09:32:00Reason for exam:->Ischemic Stroke EvaluationFINAL REPORT MRA Head CLINICAL HISTORY: Ischemic Stroke TECHNIQUE: MRA of the head utilizing 3-D rchh-pr-sktdmk technique, with 3-D reconstructions. COMPARISON: None FINDINGS: There is no evidence of intracranial aneurysm, focal stenosis, or major branch vessel occlusion. IMPRESSION: No evidence for a major [place] proximal branch vessel occlusion. MRA Neck CLINICAL HISTORY: Ischemic Stroke TECHNIQUE: MRA of the neck utilizing 2-D and 3-D wibc-tc-skdbly technique, with 3-D reconstructions. COMPARISON: None FINDINGS: The carotid arteries in the neck are patent including their bifurcations. There is antegrade flow in the vertebral arteries in the neck. IMPRESSION: No evidence of hemodynamically significant stenosis in the cervical carotid or vertebral arteries by NASCET criteria. Signed: Santos Winneport Verified Date/Time: 08/21/2018 09:32:09 Reading Location: [address] Neuro Reading Room MR, BRAIN, WITHOUT [id number] 09:25:00Reason for exam:- >Ischemic Stroke EvaluationFINAL REPORT [...] Winn Verified Date/Time: 08/21/2018 09:25:25 Reading Location: [address] Neuro R eading Room POCT-GLUCOSE [id number] 21:26:00 Test Item Value Reference Range Interpretation Comments POC-GLUCOSE METER 119 mg/dL 70-110 H TESTED AT [facility] [address] ([facility]) (test code = AYLIN Rivera [facility] 1538) [address] POCT-GLUCOSE [id number] 18:03:00 Test Item Value Reference Range Interpretation Comments POC-GLUCOSE METER 119 mg/dL 70-110 H TESTED AT [place] [address] ([facility]) (test code = AYLIN Rivera [facility] 1538) [address] POCT-GLUCOSE [id number] 12:39:00 Test Item Value Reference Range Interpretation Comments POC-GLUCOSE METER 120 mg/dL 70-110 H TESTED AT [place] [address] ([facility]) (test code = AYLIN Rivear [facility] 1538) [address] RAD, CHEST, 1 VIEW, NON [id number] 12:04:00Reason for exam:->To Locate Heart Device (Pacemaker)Should [...] MDReport Verified Date/Time: 08/20/2018 12:04:06 Reading Location: [facility] Radiology Reading Room POCT-GLUCOSE [id number] 09:17:00 Test Item Value Reference Range Interpretation Comments POC-GLUCOSE METER 121 mg/dL 70-110 H TESTED AT [place] [address] ([facility]) (test code = AYLIN Rivera [facility] 1538) [address] BASIC METABOLIC [id number] 06:56:00 Test Item Value Reference Range Interpretation [...] NOT APPLICABLE FOR DIALYSIS PATIEN TS. POCT-GLUCOSE [id number] 21:09:00 Test Item Value Reference Range Interpretation Comments POC-GLUCOSE METER 109 mg/dL 70-110 TESTED AT [facility] 67 [facility] (test [facility] = [facility] 1538) [address] POCT-GLUCOSE [id number] 17:15:00 Test Item Value Reference Range Interpretation Comments POC-GLUCOSE METER 117 mg/dL 70-110 H TESTED AT [place] [address] ([facility]) (test code = [facility] Miguel [facility] 1538) [address] VITAMIN B12 AND [id number] 06:39:00 Test Item Value Reference Range Interpretation Comments VITAMIN B12 (BEAKER) (test code = 524 pg/mL 213-816 774) FOLATE (BEAKER) (test code = 362) 13.5 ng/mL >=7.0 BASIC METABOLIC [id number] 05:48:00 Test Item Value Reference Range Interpretation [...] S NOT APPLICABLE FOR DIALYSIS PATIEN TS. [id number] 15:42:00 Test Item Value Reference Range Interpretation Comments RPR SCREEN (BEAKER) (test code = Nonreactive Nonreactive 420) HEMOGLOBIN [id number] 09:14:00 Test Item Value Reference Range Interpretation Comments HEMOGLOBIN A1C (BEAKER) (test code = 5.3 % 4.3-6.1 368) TSH/FREE T4 IF [id number] 04:49:00 Test Item Value Reference Range Interpretation Comments THYROID STIMULATING HORMONE 3.18 uIU/mL 0.35-4.94 (BEAKER) (test code = 772) BASIC METABOLIC [id number] 04:38:00 Test Item Value Reference Range Interpretation [...] NOT APPLICABLE FOR DIALYSIS PATIEN TS. LIPID [id number] 04:38:00 Test Item Value Reference Range Interpretation [...] 130-159 High 160-189 Very High >=190HEPATIC FUNCTION [id number] 04:38:00 Test Item Value Reference Range Interpretation [...] (test code = 413) AFB Culture and [id number] 13:24:00Specimen/Source: Wound/PACEMAKERCollected: 09/05/2017 19:45 Status: Final Last Updated: 11/01/2017 13:24 EQG-Ossjd-Raedynhcsuzk (Final) (Final) 09/07/17 No acid fast bacill seen on direct smear Culture Result (Final) (Final) 11/01/17 No growth of AFB at six (6) weeksFungus Culture with [id number] 12:12:00 Specimen/Source: Wound/PACEMAKERCollected: 09/05/2017 19:45 Status: Final Last Updated: 10/22/2017 12:12 Fungal Smear Result (Final) (Final) 09/06/17 No yeast or hyphae seen Culture Result (Final) (Final) 10/22/17 No fungus isolated at 6 weeksCulture, Blood [id number] 08:23:00Specimen: BloodCollected: 09/04/2017 20:30 Status: Final Last Updated: 09/10/2017 08:23 Culture Result (Final) (Final) No Growth After 5 DaysCulture, Blood [id number] 08:23:00Specimen: BloodCollected: 09/04/2017 20:15 Status: Final Last Updated: 09/10/2017 08:23 Culture Result (Final) (Final) No Growth After 5 DaysCulture, Wound [id number] 08:52:00Specimen: WoundCollected: 09/05/2017 19:45 Status: Final Last Updated: 09/08/2017 08:52 Gram Stain (Final) (Final) 09/06/17 No organisms seen, Few WBC's Culture Result (Final) (Final) 09/08/17 Anaerobic culture:No anaerobes isolated at 3 days Isolate (Final) (Final) 09/07/17Few Staph-coag positive Isolate Staph-coag positive JERMAINE (mcg/ml) Amoxicillin/Clav (AUG)<=4/2 Susceptible Ampicillin (AM) >8 Resistant Ampicillin/Sulb (A/S) <=8/4 Susceptible Cefazolin (CFZ) <=4 Susceptible Ceftriaxone (TIRE MECHANIC) <=4 Susceptible Chloramphenicol (C) <=8 Susceptible Ciprofloxacin (CP) <=1 Susceptible Clindamycin (CM) 0.5 Susceptible Erythromycin (E) <=0.25 Susceptible Gentamicin (GM) <=1 Susceptible Imipenem (IMP) <=4 Susceptible Levofloxacin (LEV) <=0.5 Susceptible Linezolid (LNZ) 4 Susceptible Oxacillin (OX1) 0.5 Susceptible Penicillin (P) >8 Resistant Rifampin (RA) <=1 Susceptible Tetracycline (TE) <=1 Susceptible Trimethoprim/Sulfa <=0.5/9.Susceptible (SXT) 5 Vancomycin (VA) 2 SusceptibleRenal [id number] 08:51:00 Test Item Value Reference Range Interpretation [...] National Kidney Foundation,http :[email or web address] [email or web address] CBC with [id number] 07:39:00 Test Item Value Reference Range Interpretation [...] code = ALYMPH) 1.7 K/cumm 0.5-4.6 N [place] Abs (test code = AMONO) 0.3 K/cumm 0.0-1.2 N Eos Abs (test code = AEOS) 0.29 K/cumm 0.00-0.74 N Baso Abs (test code = ABASO) 0.0 K/cumm 0.00-0.21 N Vancomycin, [id number] 12:33:00 Test Item Value Reference Range Interpretation Comments Vanco, Trou (test code = VANTR) 7.9 ug/mL 10.0-20.0 L Magnesium, [id number] 06:37:00 Test Item Value Reference Range Interpretation Comments Magnesium (test code = MG) 2.4 mg/dL 1.7-2.5 N Renal [id number] 06:29:00 Test Item Value Reference Range Interpretation [...] National Kidney Foundation,http :[email or web address] ep.[email or web address] BHCG, Serum, [id number] 06:26:00 Test Item Value Reference Range Interpretation Comments Preg Qual [Se] (test code = BSHCG) Negative Negative N CBC with [id number] 06:24:00 Test Item Value Reference Range Interpretation [...] code = ALYMPH) 1.6 K/cumm 0.5-4.6 N [place] Abs (test code = AMONO) 0.4 K/cumm 0.0-1.2 N Eos Abs (test code = AEOS) 0.18 K/cumm 0.00-0.74 N Baso Abs (test code = ABASO) 0.0 K/cumm 0.00-0.21 N XR CHEST 1 [id number] 16:29:55XR CHEST 1 VIEWLOCATION: [id number]: None.INDICATION: REVIEW PICC LINE PLACEMENTDISCUSSION:AP chest and [...] = TSH) 3.44 mIU/mL 0.270-4.200 N Lipid [id number] 05:47:00 Test Item Value Reference Range Interpretation Comments Cholesterol (test 160 mg/dL 0-200 N code = CHOL) Triglycerides (test 126 mg/dL 9-200 N code = TRIG) HDL (test code = 35 mg/dL 50-60 L HDL) Chol/HDL (test code 4.6 Ratio 0.0-4.4 H = CHOLPHDL) LDL, Calculated 100 0-130 N (NOTE)RISK O F HEART (test code = LDLC) DISEASEPu blished by [place] Heart AssociationAnal yte Optim al Boderline Increased RiskC HOL <200 200-239 >240TRI G <150 150-199 >200HDL Male: >60 <40HDL Female: >60 <50 LDL < 100 130-15 9 >160 LDL NEAR OPTIMAL IS 100- 129 VLDL (test code = 25 mg/dL 5-40 N VLDL) LDL/HDL (test code = 3 LDLPHDL) Basic Metabolic [id number] 05:47:00 Test Item Value Reference Range Interpretation [...] the National Kid[employer] Foundation,http :[email or web address] ep.nih.gov Magnesium, [id number] 05:47:00 Test Item Value Reference Range Interpretation Comments Magnesium (test code = MG) 2.3 mg/dL 1.7-2.5 N CBC with [id number] 05:36:00 Test Item Value Reference Range Interpretation [...] code = ALYMPH) 2.2 K/cumm 0.5-4.6 N [place] Abs (test code = AMONO) 0.3 K/cumm 0.0-1.2 N Eos Abs (test code = AEOS) 0.24 K/cumm 0.00-0.74 N Baso Abs (test code = ABASO) 0.0 K/cumm 0.00-0.21 N Partial Thromboplastin [id number] 21:26:00 Test Item Value Reference Range Interpretation Comments aPTT (test code = PTT) 29.00 seconds 24.39-37.25 N Prothrombin [id number] 21:26:00 Test Item Value Reference Range Interpretation Comments PT (test code = PT) 10.70 seconds 9.78-13.35 N INR (test code = INR) 0.95 Ratio 0.6-1.2 N Comprehensive Metabolic [id number] 21:23:00 Test Item Value Reference Range Interpretation [...] National Kidney Foundation,http :[email or web address] ep.nih.gov CBC with [id number] 21:16:00 Test Item Value Reference Range Interpretation [...] code = ALYMPH) 2.2 K/cumm 0.5-4.6 N [place] Abs (test code = AMONO) 0.4 K/cumm 0.0-1.2 N Eos Abs (test code = AEOS) 0.17 K/cumm 0.00-0.74 N Baso Abs (test code = ABASO) 0.1 K/cumm 0.00-0.21 N
[2021-04-30 22:07] LABS: Urine Blood Negative (Negative); Urine Glucose Negative (Negative); Urine Protein Negative (Negative); Urine Specific Gravity 1.025 (1.005-1.030)
--- NOTE | 2021-04-30 22:25 | RAD REPORT ---
EXAM DESCRIPTION: RAD - Chest Pa And Lat (2 Views) - 04/30/2021 10:15 pm CLINICAL HISTORY: PAIN Chest pain. COMPARISON: Abdomen 1 View (KUB) dated 04/29/2021hest Single View dated 04/13/2021; Chest Single View dated 03/16/2021; Chest Single View dated 03/13/2021; Chest Single View dated 02/21/2021 FINDINGS: The lungs are clear. The heart is normal in size. No displaced fractures. Dual lead pacer device is in place. IMPRESSION: No acute or concerning finding suspected.
--- NOTE | 2021-04-30 23:29 | ER ---
Nurse's Notes [facility] Name: Jenni Draper Age: 40 yrs Sex: Female : 1980 Arrival Date: 04/30/2021 Time: 18:28 Bed 9 Private MD: Diagnosis: Presentation: 04/30 21:17 Chief complaint: Patient states: Pt woke up out of sleep at 1700 with chest pain, right kg lower abdominal pain, and left arm numbness starting at 20:00. 21:19 Chief complaint:. Coronavirus screen: Client denies travel out of the [place] in the last kg 14 days. At this time, unable to obtain information related to travel outside the [place] At this time, the client does not indicate any symptoms associated with coronavirus-19. Ebola Screen: Patient negative for fever greater than or equal to 101.5 degrees Fahrenheit, and additional compatible Ebola Virus Disease symptoms Patient denies exposure to infectious person. Patient denies travel to an Ebola-affected area in the 21 days before illness onset. Initial Sepsis Screen: Does the patient meet any 2 criteria? No. Patient's initial sepsis screen is negative. Does the patient have a suspected source of infection? No. Patient's initial sepsis screen is negative. Risk Assessment: Do you want to hurt yourself or someone else? Patient reports no desire to harm self or others. Onset of symptoms was April 30, 2021 at 17:00. 21:19 Method Of Arrival: Wheelchair kg 21:19 Acuity: LYUBOV 3 kg Triage Assessment: 21:22 General: Appears in no apparent distress. Behavior is calm, cooperative, appropriate kg for age, quiet. Pain: Complains of pain in chest and right lower quadrant Pain radiates to Back Pain currently is 9 out of 10 on a pain scale. at worst was 10 out of 10 on a pain scale. level that patient reports is acceptable is 5 out of 10 on a pain scale. Quality of pain is described as sharp, stabbing, Pain began 3 hours ago. Cardiovascular: Reports chest pain, vomiting, Capillary refill < 3 seconds Pulses are 3+ in right radial artery and left radial artery Rhythm is regular. 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 LMP N/A - Hysterectomy kg Historical: - Allergies: 21:22 Aspirin; kg 21:22 Morphine; kg 21:22 PENICILLINS; kg 21:22 Diltiazem; kg 21:22 Benadryl; kg 21:22 Toradol; kg 21:22 tolterodine; kg 21:22 Suprax; kg 21:22 Sulfa (Sulfonamide Antibiotics); kg 21:22 Seroquel; kg 21:22 quetiapine; kg 21:22 Levofloxacin; kg 21:22 Latex, Natural Rubber; kg 21:22 ivabradine; kg 21:22 Iodine; kg 21:22 GABAPENTIN; kg 21:22 FISH PRODUCT DERIVATIVES; kg 21:22 Doxycycline; kg 21:22 Detrol; kg 21:22 Demerol; kg 21:22 coconut oil; kg 21:22 Clindamycin; kg 21:22 Cipro IV; kg 21:22 cefixime; kg 21:22 Bactrim; kg 21:22 Adhesives; kg - Home Meds: 21:22 Vraylar 3 mg oral cap 1 cap once daily [Active]; albuterol sulfate 1.25 mg/3 mL Inhl kg nebu 3 mL 3 times per day [Active]; alprazolam 0.25 mg Oral tab 1 tab nightly [Active]; atorvastatin 10 mg Oral tab 1 tab once daily [Active]; benztropine 1 mg Oral tab 1 tab 2 times per day [Active]; buspirone 15 mg Oral tab 1 tab 2 times per day [Active]; Coreg 25 mg Oral tab 1 tab 2 times per day [Active]; Daliresp 500 mcg Oral tab 1 tab once daily [Active]; digoxin 125 mcg Oral tab [Active]; Effexor XR 150 mg Oral cp24 1 cap once daily [Active]; Eliquis 5 mg Oral tab once a day [Active]; esomeprazole magnesium 40 mg Oral cpDR 1 cap once daily [Active]; Keppra 1,000 mg Oral tab 1 tab every 12 hours [Active]; loratadine 10 mg Oral tab 1 tab once daily [Active]; pregabalin 25 mg Oral 1 cap daily [Active]; ProAir HFA 90 mcg/actuation inhalation HFAA 2 puffs every 6 hours [Active]; Spiriva with HandiHaler 18 mcg inhalation CpDv 1 cap once daily [Active]; venlafaxine 150 mg Oral cp24 1 cap once daily [Active]; Topamax 100 mg Oral tab 2 tabs 2 times per day [Active]; - PMHx: 21:22 Asthma; Atrial Fib; Bronchitis; CHF; mitral valve prolapse; Bipolar disorder; kg - PSHx: 21:22 Cholecystectomy; hysterectomy; left shoulder; right hand; kg - Immunization history:: Adult Immunizations not up to date, Client reports receiving the 2nd dose of the Covid vaccine, Date received: February 08, 2021 [facility] Client reports receiving the 1st dose of the Covid vaccine, January 11, 2021 [facility]. - Social history:: Smoking status: Patient denies any tobacco usage or history of. Screenin:30 Abuse screen: Denies threats or abuse. Denies injuries from another. Nutritional kg screening: No deficits noted. Tuberculosis screening: No symptoms or risk factors identified. Fall Risk None identified. Vital Signs: 21:19 BP 138 / 86; Pulse 95; Resp 20; Temp 98.4(O); Pulse Ox 99% on R/A; Weight 59.42 kg (R); kg Height 4 ft. 11 in. (149.86 cm); Pain 9/10; 21:19 Body Mass Index 26.46 (59.42 kg, 149.86 cm) kg ED Course: 18:28 Patient arrived in ED. as 21:22 Triage completed. kg 21:22 Arm band placed on. EKG completed in triage. Results shown to MD. EKG completed in kg triage. Results shown to MD. EKG completed in triage. Results shown to MD. EKG completed in triage. Results shown to MD. 21:30 Patient has correct armband on for positive identification. kg 22:14 XRAY Chest Pa And Lat (2 Views) In Process Unspecified. EDMS 23:28 Sim Gusman MD is Attending Physician. pkl Administered Medications: No medications were administered Outcome: 23:29 Patient left the ED. kg Signatures: Dispatcher [employer] EDMS Sim Gusman MD MD pkl Martinez, Amelia as Graham, Kristen, LAUREL RN kg Corrections: (The following items were deleted from the chart) 21:22 21:17 Chief complaint: Patient states: Arm numbness x 1 kg kg 21:28 21:22 Home Meds: Abilify 10 mg Oral tab 1 tab once daily; kg kg
--- NOTE | 2021-04-30 23:29 | EDPHYS ---
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 21:22 LMP N/A - Hysterectomy kg Historical: - Allergies: 21:22 Aspirin; kg 21:22 Morphine; kg 21:22 PENICILLINS; kg 21:22 Diltiazem; kg 21:22 Benadryl; kg 21:22 Toradol; kg 21:22 tolterodine; kg 21:22 Suprax; kg 21:22 Sulfa (Sulfonamide Antibiotics); kg 21:22 Seroquel; kg 21:22 quetiapine; kg 21:22 Levofloxacin; kg 21:22 Latex, Natural Rubber; kg 21:22 ivabradine; kg 21:22 Iodine; kg 21:22 GABAPENTIN; kg 21:22 FISH PRODUCT DERIVATIVES; kg 21:22 Doxycycline; kg 21:22 Detrol; kg 21:22 Demerol; kg 21:22 coconut oil; kg 21:22 Clindamycin; kg 21:22 Cipro IV; kg 21:22 cefixime; kg 21:22 Bactrim; kg 21:22 Adhesives; kg - Home Meds: 21:22 Vraylar 3 mg oral cap 1 cap once daily [Active]; albuterol sulfate 1.25 mg/3 mL Inhl kg nebu 3 mL 3 times per day [Active]; alprazolam 0.25 mg Oral tab 1 tab nightly [Active]; atorvastatin 10 mg Oral tab 1 tab once daily [Active]; benztropine 1 mg Oral tab 1 tab 2 times per day [Active]; buspirone 15 mg Oral tab 1 tab 2 times per day [Active]; Coreg 25 mg Oral tab 1 tab 2 times per day [Active]; Daliresp 500 mcg Oral tab 1 tab once daily [Active]; digoxin 125 mcg Oral tab [Active]; Effexor XR 150 mg Oral cp24 1 cap once daily [Active]; Eliquis 5 mg Oral tab once a day [Active]; esomeprazole magnesium 40 mg Oral cpDR 1 cap once daily [Active]; Keppra 1,000 mg Oral tab 1 tab every 12 hours [Active]; loratadine 10 mg Oral tab 1 tab once daily [Active]; pregabalin 25 mg Oral 1 cap daily [Active]; ProAir HFA 90 mcg/actuation inhalation HFAA 2 puffs every 6 hours [Active]; Spiriva with HandiHaler 18 mcg inhalation CpDv 1 cap once daily [Active]; venlafaxine 150 mg Oral cp24 1 cap once daily [Active]; Topamax 100 mg Oral tab 2 tabs 2 times per day [Active]; - PMHx: 21:22 Asthma; Atrial Fib; Bronchitis; CHF; mitral valve prolapse; Bipolar disorder; kg - PSHx: 21:22 Cholecystectomy; hysterectomy; left shoulder; right hand; kg - Immunization history:: Adult Immunizations not up to date, Client reports receiving the 2nd dose of the Covid vaccine, Date received: February 08, 2021 [facility] Client reports receiving the 1st dose of the Covid vaccine, January 11, 2021 [facility]. - Social history:: Smoking status: Patient denies any tobacco usage or history of. Exam: 21:39 ECG was reviewed by the Attending Physician. Vital Signs: 21:19 BP 138 / 86; Pulse 95; Resp 20; Temp 98.4(O); Pulse Ox 99% on R/A; Weight 59.42 kg (R); kg Height 4 ft. 11 in. (149.86 cm); Pain 9/10; 21:19 Body Mass Index 26.46 (59.42 kg, 149.86 cm) kg MDM: 23:28 Patient medically screened. pkl 04/30 21:30 Order name: Basic Metabolic Panel kg 04/30 21:30 Order name: CBC with Diff kg 08 21:39 Order name: Troponin I cp 08 21:39 Order name: Magnesium cp 08 21:39 Order name: BNP cp 04/30 22:07 Order name: Urine Dipstick-Ancillary; Complete Time: 01:11 EDMS 08 21:30 Order name: IV Saline Lock kg 08 21:30 Order name: Labs collected and sent kg 08 21:30 Order name: EKG - Nurse/Tech; Complete Time: 21:39 kg 04/30 21:30 Order name: XRAY Chest Pa And Lat (2 Views); Complete Time: 01:11 kg 04/30 21:39 Order name: Urine Dipstick-Ancillary (obtain specimen) cp EC:39 Rate is 97 beats/min. Rhythm is regular. MT interval is normal. QRS interval is normal. cp QT interval is normal. T waves are Inverted in lead aVR. Interpreted by me. Reviewed by me. Administered Medications: No medications were administered Disposition: 05/01 01:10 Co-signature as Attending Physician, Sim Gusman MD. pkl Disposition Summary: 04/30/21 23:29 Eloped Disposition: post triage evaluation and consult kg Reason: unknown kg Signatures: Dispatcher [employer] EDMS Sim Gusman MD MD pkl Caio Briones PA PA cp Graham, Kristen RN RN kg Corrections: (The following items were deleted from the chart) 04/30 21:28 21:22 Home Meds: Abilify 10 mg Oral tab 1 tab once daily; kg kg
[2021-04-30 23:44] VITALS: BP 138/86; TEMP 98.4; O2SAT 99
== END 2021-04-30 23:29 | disposition left against medical advice (07) ==
LOC: ER 18:28
DX: R07.9 Chest pain, unspecified (principal); R10.31 Right lower quadrant pain; R20.0 Anesthesia of skin; I50.9 Heart failure, unspecified; I48.91 Unspecified atrial fibrillation; Z79.01 Long term (current) use of anticoagulants; Z88.0 Allergy status to penicillin; Z88.1 Allergy status to other antibiotic agents; Z88.2 Allergy status to sulfonamides; Z88.3 Allergy status to other anti-infective agents; Z88.5 Allergy status to narcotic agent; Z88.6 Allergy status to analgesic agent; Z88.8 Allergy status to other drugs, medicaments and biological substances; Z91.013 Allergy to seafood; Z91.018 Allergy to other foods; Z91.048 Other nonmedicinal substance allergy status
CPT/HCPCS: 71046; 81003; 93005; 99282

== ENCOUNTER 2021-05-18 01:28 | Emergency (ER) | payer OTHER ==
--- OUTSIDE RECORDS SUMMARY | 2021-05-18 01:37 | XMS REPORT | Continuity of Care Document ---
:1980 Author Organization [facility] t Address [address] [place] [address] Care Team Providers Name Role Phone Morgan LARSEN Primary Care Physician Doctor Unassigned, Name Attending Clinician Unavailable Malena VEGA Attending Clinician Omari RALPH Attending Clinician Unavailable Antonio LARSEN, T. Attending Clinician Andrea Bolanos MD Attending Clinician Sho LARSEN Attending Clinician Zakia Vera MD Attending Clinician Unavailable ZAKIA VERA Attending Clinician Unavailable LEONOR Attending Clinician Unavailable LINETTE Attending Clinician Unavailable SHO Admitting Clinician Unavailable ZAKIA VERA Admitting Clinician Unavailable LEONOR Admitting Clinician Unavailable LINETTE Admitting Clinician Unavailable Payers Payer Name Policy Type Policy Effective Date Expiration Date Sour ce Number [facility] [id number] 2011 Met amarilys STAR+PLUS 00:00:00 Hospital [id number] 2010- PresentHMO MEDICAID - MEDICAID [id number] [address] [facility] CAREGENERIC 00:00:00 - Medical MEDICAID Center [id number] 2010- PresentMedicaid Non-Contracted SOLORIO [id number] [facility] [facility] MEDICAIDMEDICAID 00:00:00 - Medica l [id number]/[address] 018-Present Problems Condition Condition Condition Status Onset Resolution Last Treating Co mments Source Name Details Category Date Date Treatment Clinician Date Left-sided Left-sided Disease Active [facility] weakness weakness 02-12 - 00:00: Medical 00 [place] Received Received Disease [facility] tissue 02-12 - plasminoge plasminoge 00:00: Fl dical n n 00 Center activator activator (t-PA) (t-PA) less than less than 24 hours 24 hours prior to prior to arrival arrival Acute Acute Disease Active [facility] ischemic ischemic 02-11kes - stroke stroke 00:00: Medical 00 [place] Chest pain Chest pain Disease Active [facility] in adult in adult 01-12 [facility] 00 [place] Seizure Seizure Disease Active 2018-[address] disorder disorder 10-26[facility] - 00:00: Medical 00 [place] Anxiety Anxiety Disease Active [facility] disorder disorder 04-29 [facility] 00:[facility]: Medical 00 [place] Asthma Asthma Disease Active [facility] 04-29 [facility]: Medical 00 [place] Paresthesi Paresthesi Disease Active 2017-09 [facility] [...] [facility] ins 1-04 [place] 00:00: d 00 [facility] Sulfa DA Active MO 0 [facility] (Sulfona -04 [place] mide 00:00: d Antibiot [address] [facility]) Center Fish FA Active SV 0 [facility] Containi 1-04 [place] ng 00:00: d Products 00 [facility] iodine DA Active MO 2020-0 [facility] 1-04 [place] 00:00: d 00 [facility] morphine DA Active SV 2020-0 [facility] 1-04 [place] 00:00: d 00 [facility] aspirin DA Active SV 2020-0 [facility] 1-04 [place] 00:00: d 00 [facility] cephalex DA Active SV 2020-0 [facility] in 1-04 [place] 00:00: d 00 [facility] cefixime DA Active MO 2020-0 [facility] 1-04 [place] 00:00: d 00 [facility] doxycycl DA Active SV 2020-0 [facility] ine 1-04 [place] 00:00: d 00 [facility] clindamy DA Active MO 2020-0 [facility] stephan 1-04 [place] 00:00: d 00 [facility] sulfamet DA Active MO 2020-0 [facility] hoxazole 1-04 [place] 00:00: d 00 [facility] trimetho DA Active MO 2020-0 [facility] prim 1-04 [place] 00:00: d 00 [facility] ciproflo DA Active SV 2020-0 [facility] xacin 1-04 [place] 00:00: d 00 Medical [place] adhesive DA Active SV 2020-0 [facility] tape 1-04 [place] 00:00: d 00 Medical Center tramadol DA Active SV 2020-0 [facility] 1-04 [place] 00:00: d 00 [facility] Center gabapent DA Active SV 2020-0 [facility] in 1-04 [place] 00:00: d 00 Medical Center diltiaze DA Active SV 2020-0 [facility] m 1-04 [place] 00:00: d 00 Medical Center diphenhy DA Active SV 2020-0 [facility] dramine 1-04 [place] 00:00: d 00 Medical Center topirama DA Active SV 2020-0 [facility] te 1-04 [place] 00:00: d 00 [facility] levoflox DA Active SV 2020-0 [facility] acin 1- [place] 00:00: d 00 Medical Center quetiapi DA Active MO 2020-0 [facility] ne 1-04 [place] 00:00: d 00 Medical Center tolterod DA Active MO 2020-0 [facility] ine - [place] 00:00: d 00 Medical Center latex DA Active SV 2020-0 [facility] -04 [place] 00:00: d 00 Medical Center ivabradi DA Active MO 2020-0 [facility] ne 1-04 [place] 00:00: d 00 [facility] coconut FA Active MO 2020-0 [facility] -04 [place] 00:00: d 00 Medical Center Topirama Propensi Active Anaphylaxis 2019-0 M ethodi te ty to 16 st adverse 00:00: Hospita reaction 00 l s to drug Ivabradi Propensi Active Rash 2018-09: Meth jamie ne ty to 0-[address] adverse 00:00: passing Hospita reaction 00 out after l s to taking drug one dose of that medicine Diltiaze Propensi Active Shortness Of 2018-0 Methodi m ty to Breath 05 st adverse 00:00: Hospita reaction 00 l s to drug Doxycycl Propensi Active Rash 2018- Method i ine ty to 805 st adverse 00:00: Hospita reaction 00 l s to drug Levoflox Propensi Active Anaphylaxis 2018- M ethodi acin ty to 805 st adverse 00:00: Hospita reaction 00 l s to drug Cephalex Propensi Active Anaphylaxis 2018-0 M ethodi in ty to 05 st adverse 00:00: Hospita reaction 00 l s to drug Sulfamet Propensi Active Rash 2017-09 Method i hoxazole ty to 10-17 st -Trimeth adverse 00:00: Hospita oprim reaction 00 l s to drug Cefixime Propensi Active Rash 2017-09 Method i ty to 10-17 st adverse 00:00: Hospita reaction 00 l s to drug Clindamy Propensi Active Rash 2017-[address] stephan ty to 10-17 [facility] - adverse 00:00: Medical reaction 00 [place] s Tolterod Propensi Active Rash 2017-[address] ine ty to 10-17 [facility] - adverse 00:00: Medical reaction 00 [place] s Gabapent Propensi Active Shortness Of 2017-[address] in ty to Breath, Rash 10-17 [facility] - adverse 00:00: Medical reaction 00 [place] s Iodine Propensi Active Rash 2017-[address] And ty to 10-17 [facility] - Iodide adverse 00:00: Medical Containi reaction 00 [facility] s Products Latex Propensi Active Rash 2017-[address] ty to 10-17 [facility] - adverse 00:00: Medical reaction 00 [place] s Morphine Propensi Active Anaphylaxis 2017-[address] ty to 10-17 [facility] - adverse 00:00: Medical reaction 00 [place] s Penicill Propensi Active Anaphylaxis 2017-[address] ins ty to 10-17 [facility] - adverse 00:00: Medical reaction 00 [place] s Quetiapi Propensi Active 2017-[address] ne ty to 10-17 [facility] - adverse 00:00: Medical reaction 00 [place] s Sulfa Propensi Active Rash 2017-[address] (Sulfona ty to 10-17 [facility] - mide adverse 00:00: Medical [facility] s Cefixime Propensi Active Rash 2017-[address] ty to 10-17 [facility] - adverse 00:00: Medical reaction 00 [place] s Tramadol Propensi Active Rash 2017-[address] ty to 10-17 [facility] - adverse 00:00: Medical reaction 00 [place] s Adhesive Propensi Active Rash 2017-09 Can use [facility] t Tape ty to 10-17 papertape [facility] - adverse 00:00: . Medical reaction 00 [place] s Sulfamet Propensi Active Anaphylaxis 2017-09 C [...] reaction 00 Center s Coconut Propensi Active Rash 2017-09 Methodi ty to 10-04 st adverse 00:00: Hospita reaction 00 l s to drug Coconut Propensi Active Rash 2017-09 Methodi Oil ty to 10-04 st adverse 00:00: Hospita reaction 00 l s to drug Other Propensi Active Swelling 2017-09 Family Method i ty to 10-04 st adverse 00:00: of Hospita reaction 00 allergic l s reaction. Clindamy Propensi Active Rash Method i stephan ty to 12 st adverse 00:00: Hospita reaction 00 l s to drug Diphenhy Propensi Active Other (See Me thodi dramine ty to Comments) 12 st adverse 00:00: Hospita reaction 00 l s to drug Gabapent Propensi Active Shortness Of Methodi in ty to Breath 12 st adverse 00:00: Hospita reaction 00 l s to drug Iodine Propensi Active Rash Methodi And ty to [address] st Iodide adverse 00:00: Hospita Containi reaction 00 l ng s to Products drug Morphine Propensi Active Anaphylaxis 2016-09 M ethodi ty to 0-05 st adverse 00:00: Hospita reaction 00 l s to drug Tramadol Propensi Active Rash Rash Rash Met hodi ty to 9 st adverse 00:00: Hospita reaction 00 l [...] Date Stop Date Quantity Comments Source History SDGA [facility] Alcohol Std Drinks Hospit al History [facility] Alcohol Binge Hospital Sex Assigned At [facility] Tobacco use and 2021-03-17 2021-03-17 Never used [facility]ani exposure 00:00:00 00:00:00 Hospital History SDGA 2018-09-05 2018-09-05 1 [facility] Alcohol Frequency 00:00:00 00:00:00 Hospita l Alcohol intake 2018-08-18 2018-08-[address] [facility] - 00:00:00 00:00:00 of [facility] Smoking Status Start Date Stop Date Source Former smoker 2021-03-17 00:00:00 2021-03-17 00:00:00 [facility] Ordered F[facility] Start Stop Current Ordering Indication Dosage Frequency Signature Comments Components Source Medication Medication Date Date Medication? Clinician (SIG) Name Name fluticasone Yes 100ug QD 2 sprays M ethodi propionate 6-25 ([address] (FLONASE) 00:00: total) by Hos elenita 50 00 Each Nare l mcg/actuati route on nasal daily. spray fluticasone Yes 100ug QD 2 sprays M ethodi propionate 6-25 ([address] (FLONASE) 00:00: total) by Hos elenita 50 00 Each Nare l mcg/actuati route on nasal daily. spray fexofenadin 2020- No 180mg QD Take 1 Me thodi e (SUDHAKAR) - 07-[address] 180 MG 00:00: 04:59 (180 mg Hospita tablet 00 :00 total) by l mouth daily for 30 days. fexofenadin 2020- No 180mg QD Take 1 Me thodi e (SUDHAKAR) - 07- tablet st 180 MG 00:00: 04:59 (180 mg Hospita tablet 00 :00 total) by l mouth daily for 30 days. fluticasone 2020- No QD Inhale 1 M ethodi furoate-natan 6-24 06-24 inhalation s t anteroL 22:52: 00:00 s daily. Hospi ta (Breo 47 :00 l Ellipta) 100-25 mcg/dose blister with device powder for inhalation fluticasone 2020- No 1{puff} Q.5D Inhale 1 Methodi propionate 6-24 06-[address] (FLOVENT 22:52: 00:00 (two) Hospita HFA) 110 47 :00 times a l mcg/actuati day. on inhaler fluticasone 2020- No QD Inhale 1 M ethodi furoate-natan 6-24 06-24 inhalation s t anteroL 22:52: 00:00 s daily. Hospi ta (Breo 47 :00 l Ellipta) 100-25 mcg/dose blister with device powder for inhalation fluticasone 2020- No 1{puff} Q.5D Inhale 1 Methodi propionate 6-24 06-[address] (FLOVENT 22:52: 00:00 (two) Hospita HFA) 110 47 :00 times a l mcg/actuati day. on inhaler benztropine Yes 1mg Q.5D Take 1 mg M ethodi (COGENTIN) 6-[address] 1 MG tablet 22:52: (two) Hospi ta 44 times a l day. busPIRone Yes 15mg Q.5D Take 15 mg Me thodi (BUSPAR) 10 6-[address] MG tablet 22:52: (two) Hospita 44 times a l day. digOXIN 0 Yes 125ug QD Take 125 Metho di (LANOXIN) 6-[address] 125 mcg 22:52: mouth Hospita tablet 44 daily. l ALPRAZolam 0 Yes .25mg QD Take 0.25 M ethodi (XANAX) 6-[address] 0.25 MG 22:52: mouth Hospita tablet 44 nightly as l needed for anxiety. carvediloL 0 Yes 25mg Q.5D Take 25 mg M ethodi (COREG) 25 6-[address] MG tablet 22:52: (two) Hospita 44 times a l day with meals. venlafaxine Yes 150mg QD Take 150 M ethodi XR 6-[address] (EFFEXOR-XR 22:52: mouth Hospi ta ) 150 MG 24 44 daily. l hr capsule apixaban Yes 5mg Q.5D Take 5 mg Meth [...] 44 (two) l times a day. pregabalin 0 Yes 50mg QD Take 50 mg M [...] 1,000 unit 44 daily. l tablet tiotropium 2021-0 Yes 1{capsu QD Place 1 M ethodi [...] day. l ophthalmic emulsion albuterol Yes 1{ampul Q.00911391 Take 1 Methodi (ACCUNEB) 6-24 e} [id number] ampule by st 1.25 mg/3 22:52: 3D nebulizati Ho spita mL 44 on 3 l nebulizer (three) solution times a day. benztropine Yes 1mg Q.5D Take 1 mg M ethodi (COGENTIN) 6-[address] 1 MG tablet 22:52: (two) Hospi ta 44 times a l day. busPIRone Yes 15mg Q.5D Take 15 mg Me thodi (BUSPAR) 10 6-[address] MG tablet 22:52: (two) Hospita 44 times a l day. digOXIN Yes 125ug QD Take 125 Metho di [...] times a l day with meals. venlafaxine Yes 150mg QD Take 150 M ethodi XR 6-[address] (EFFEXOR-XR 22:52: mouth Hospi ta ) 150 MG 24 44 daily. l hr capsule apixaban 0 Yes 5mg Q.5D Take 5 mg Meth jamie (ELIQUIS) 5 6-[address] mg tablet 22:52: (two) Hospita 44 times a l day. famotidine 0 Yes 20mg QD Take 20 mg M ethodi (PEPCID) 20 6-[address] MG tablet 22:52: nightly. [facility] 44 l levETIRAcet 0 Yes 1000mg Q.5D Take 1,000 Methodi am (KEPPRA) 6-[address] 1000 MG 22:52: mouth 2 Hospita tablet 44 (two) l times a day. pregabalin 0 Yes 50mg QD Take 50 mg M [...] 22:52: daily. [facility] 44 l cycloSPORIN 0 Yes 1[drp] Q.5D 1 drop 2 Methodi E 6-24 (two) st (RESTASIS) 22:52: times a [facility] 0.05 % 44 day. l ophthalmic emulsion albuterol 0 Yes 1{ampul Q.[id number] Take 1 Methodi (ACCUNEB) 6-24 e} [id number] ampule by st 1.25 mg/3 22:52: 3D nebulizati Ho spita mL 44 on 3 l nebulizer (three) solution times a day. esomeprazol 2020-0 2020- No 20mg QD Take 20 mg Methodi e (NexIUM) 03-[address] 20 MG 20:19: 00:00 daily Hospita capsule 48 :00 before l breakfast. esomeprazol 2020-0 2020- No 20mg QD Take 20 mg Methodi e (NexIUM) 03-[address] 20 MG 20:19: 00:00 daily Hospita capsule 48 :00 before l breakfast. ARIPiprazol 2020-0 2020- No 5mg QD Take 5 mg Methodi e (ABILIFY) 03-[address] 5 MG tablet 01:39: 00:00 daily. Hos elenita 34 :00 l ARIPiprazol 2020-0 2020- No 5mg QD Take 5 mg Methodi e (ABILIFY) 03-[address] 5 MG tablet 01:39: 00:00 daily. Hos elenita 34 :00 l ARIPiprazol 0 2020- No 10mg QD Take 10 mg Methodi e (ABILIFY) 03-[address] 10 MG 01:39: 00:00 daily. Hospita tablet 25 :00 l ARIPiprazol 2020-0 2020- No 10mg QD Take 10 mg Methodi e (ABILIFY) 03-[address] 10 MG 01:39: 00:00 daily. Hospita tablet 25 :00 l fluticasone 0 Yes QD Inhale 1 Me thodi furoate-natan [address] anteroL 00:00: s daily. Hospit a (Breo 00 l Ellipta) 200-25 mcg/dose blister with device powder for inhalation albuterol Yes 2{puff} Q4H Inhale 2 M ethodi (PROAIR 6-[address] HFA) 90 00:00: every 4 Hospita mcg/actuati 00 (four) l on inhaler hours as needed for wheezing. albuterol Yes 2{puff} Q4H Inhale 2 M ethodi (PROAIR 6-[address] HFA) 90 00:00: every 4 Hospita mcg/actuati 00 (four) l on inhaler hours as needed for wheezing. fluticasone Yes QD Inhale 1 Me thodi furoate-natan 6-[address] anteroL 00:00: s daily. Hospit a (Breo 00 l Ellipta) 200-25 mcg/dose blister with device powder for inhalation esomeprazol 2020- No 40mg QD Take 1 Met hodi e (NexIUM) 03-18- capsule st 40 MG 00:00: 04:59 (40 mg Hospita capsule 00 :00 total) by l mouth daily before breakfast for 30 days. esomeprazol 2020- No 40mg QD Take 1 Met hodi e (NexIUM) 03-[address] 40 MG 00:00: 04:59 (40 mg Hospita capsule 00 :00 total) by l mouth daily before breakfast for 30 days. ibuprofen 2020- No 600mg Q8H Take 1 Meth jamie (ADVIL) 600 03-18-[address] MG tablet 00:00: 04:59 (600 mg [facility] 00 :00 total) by l mouth every 8 (eight) hours for 5 days. methylPREDN 2020- No follow Met hodi ISolone 03-18- package st (Medrol, 00:00: 04:59 directions Ho Infotopta Juliocesar,) 4 mg 00 :00 l tablet ibuprofen 2020- No 600mg Q8H Take 1 Meth jamie (ADVIL) 600 03-18-[address] MG tablet 00:00: 04:59 (600 mg [facility] 00 :00 total) by l mouth every 8 (eight) hours for 5 days. methylPREDN 2020- No follow Met hodi ISolone 03-18-[address] (Medrol, 00:00: 04:59 directions Ho Infot[employer] Juliocesar,) 4 mg 00 :00 l tablet promethazin No 12.5mg Q6H Take 1 M ethodi e 03-18- tablet st (PHENERGAN) 00:00: 04:59 (12.5 mg H ospita 12.5 MG 00 :00 total) by l tablet mouth every 6 (six) hours as needed for nausea or vomiting for up to 3 days. promethazin 2020- No 12.5mg Q6H Take 1 M ethodi e 03-18 06-[address] (PHENERGAN) 00:00: 04:59 (12.5 mg [...] MG 14:04: mouth Medical tablet 46 daily. [place] venlafaxine Yes 150mg QD Take [address] (EFFEXOR-XR 5-21 mg by [facility] - ) 150 MG 24 14:04: mouth Medic al hr capsule 46 daily. [place] apixaban Yes 5mg QD Take [address] (ELIQUIS) 5 5-21 by mouth Luke s - mg Tab 14:04: daily. Medical tablet 46 [place] levETIRAcet 0 Yes 1000mg Q.5D Take 1,[address] am (KEPPRA) 5-21 mg by [facility] - 1000 MG 14:04: mouth 2 Medical tablet 46 (two) Center times daily. loratadine 0 Yes 10mg QD Take [address] (CLARITIN) 5-21 by mouth [facility] - 10 mg 14:04: daily. Medical tablet 46 [place] pregabalin 0 Yes 50mg QD Take [address] (LYRICA) 25 5-21 by mouth Luke s - MG capsule 14:04: nightly . Me dical 46 [place] esomeprazol 0 Yes 40mg QD Take 40 mg CHI [...] mouth Medica l 46 nightly. Center albuterol 1- No 1{ampul Q.5D Take 1 [...] 54 :00 daily. Center nasal inhaler topiramate 200mg Q.5D Take [address] (TOPAMAX) 5-19 05-19 mg by [facility] - 100 MG 22:23: 00:00 mouth 2 Medical tablet 21 :00 (two) Center times daily. ROFLUMILAST 2020- COPD 500ug QD Take [address] [...] 00:00 daily as edical 31 :00 needed. [place] ARIPiprazol 2020- No 5mg QD Take [address] e (ABILIFY) 5-19 05-19 by mouth Berta es - 5 MG tablet 22:18: 00:00 nightly. M edical 03 :00 [place] ARIPiprazol 2020- No 10mg QD Take [address] e (ABILIFY) 5-19 05-19 by mouth Berta es - 10 MG 22:17: 00:00 daily. Medical disintegrat 48 :00 Center ing tablet Vital Signs Vital Name Observation Time Observation Value Comments Source Oxygen saturation in 2021-03-18 20:00:00 97 /min [facility] Arterial blood by Pulse oximetry Systolic blood 2021-03-18 17:24:48 132 mm[Hg] [facility] pressure Diastolic blood 2021-03-18 17:24:48 72 mm[Hg] [facility] pressure Heart rate 2021-03-18 17:24:48 96 /min [facility] Body temperature 2021-03-18 17:24:48 37 Ayaka [facility] Respiratory rate 2021-03-18 17:24:48 14 /min [facility] Body height 2021-03-18 01:37:00 149.9 cm [facility] Body weight 2021-03-18 00:09:00 58.968 kg [facility] BMI 2021-03-18 00:09:00 26.26 kg/m2 [facility] Systolic blood 2021-02-12 12:00:00 101 mm[Hg] [facility] Diastolic blood 2021-02-12 12:00:00 72 mm[Hg] [facility] Heart rate 2021-02-12 12:00:00 93 /min [facility] Respiratory rate 2021-02-12 12:00:00 18 /min [facility] Oxygen saturation in 2021-02-12 12:00:00 96 /min [facility] Arterial blood by Medical Ce nter Pulse oximetry Body temperature 2021-02-12 11:00:00 37.56 Ayaka [facility] Body height 2021-02-11 10:15:00 149.9 cm [facility] Body weight 2021-02-11 10:15:00 59.5 kg [facility] BMI 2021-02-11 10:15:00 26.48 kg/m2 [facility] Procedures Procedure Date / Time Performing Clinician Source Performed POC GLUCOSE 2021-03-18 17:31:00 Cliff Berkowitz spital ECG 12-LEAD 2021-03-18 17:28:01 Cici [facility] TROPONIN 2021-03-18 16:41:00 Cici [facility] TTE COMPLETE, WO 2021-03-18 14:19:12 Laeeq, [facility] CONTRAST, W DOPPLER ([id number]) POC GLUCOSE 2021-03-18 13:14:00 Lae, [facility] HC COMPLETE BLD COUNT 2021-03-18 10:00:00 Lae, [facility] W/AUTO DIFF COMPREHENSIVE METABOLIC 2021-03-18 10:00:00 Lae, [facility] PANEL MAGNESIUM LEVEL 2021-03-18 10:00:00 Lae, [facility] PHOSPHORUS LEVEL 2021-03-18 10:00:00 Laeeq, [facility] LIPID PANEL 2021-03-18 10:00:00 [facility], [facility] HEMOGLOBIN A1C 2021-03-18 10:00:00 Lae, [facility] ESTIMATED GFR 2021-03-18 10:00:00 Lae, [facility] URINE CULTURE 2021-03-18 06:12:00 [facility], [facility] URINALYSIS SCREEN AND 2021-03-18 05:36:00 Lae, [facility] MICROSCOPY, WITH REFLEX TO CULTURE LEGIONELLA URINARY 2021-03-18 05:36:00 [facility], [facility] ANTIGEN STREPTOCOCCUS PNEUMONIAE 2021-03-18 05:36:00 [facility], [facility] URINARY ANTIGEN BLOOD CULTURE, AEROBIC & 2021-03-18 04:35:00 Lae, [facility] ANAEROBIC BLOOD CULTURE, AEROBIC & 2021-03-18 04:25:00 Lae, [facility] ANAEROBIC DIGOXIN LEVEL 2021-03-18 04:24:00 [facility], [facility] TROPONIN 2021-03-18 04:24:00 [facility] LACT[facility] AC[facility] LEV[facility], SEPSIS 2021-03-18 04:24:00 Lae, [facility] - NOW AND REPEAT 2X EVERY 3 HOURS POC GLUCOSE 2021-03-18 01:38:00 [facility], [facility] ARTERIAL BLOOD GAS 2021-03-18 01:10:00 [facility] US DUPLEX VENOUS LOWER 2021-03-18 01:00:06 [facility] EXTREMITY BILATERAL LACTIC ACID LEVEL, SEPSIS 2021-03-17 23:47:00 [facility], [facility] - NOW AND REPEAT 2X EVERY 3 HOURS TROPONIN 2021-03-17 23:47:00 [facility] XR CHEST 1 VW PORTABLE 2021-03-17 21:20:18 [facility] HC COMPLETE BLD COUNT 2021-03-17 21:05:00 [facility] W/AUTO DIFF LACTIC ACID LEVEL, SEPSIS 2021-03-17 21:05:00 [facility], [facility] - NOW AND REPEAT 2X EVERY 3 HOURS COMPREHENSIVE METABOLIC 2021-03-17 21:05:[address] [facility] PANEL TROPONIN 2021-03-17 21:05:00 [facility] B NATRIURETIC PEPTIDE 2021-03-17 21:05:00 [facility] D-DIMER 2021-03-17 21:05:00 [facility] ESTIMATED GFR 2021-03-17 21:05:00 [facility] ECG ED PRELIMINARY 2021-03-17 20:36:46 [facility] INTERPRETATION ECG 12-LEAD 2021-03-17 20:19:38 [facility] BASIC METABOLIC PANEL (7) 2021-02-12 05:34:00 JohanAlison [facility] MAGNESIUM 2021-02-12 05:34:00 Lacona [facility] PHOSPHORUS 2021-02-12 05:34:00 Lacona [facility] CBC W/PLT COUNT & AUTO 2021-02-12 04:48:00 Alison Prado I [facility] MR BRAIN WITHOUT IV 2021-02-11 16:08:00 [facility] 2021-02-11 16:07:00 Chew Igor [facility] MRA NECK WITHOUT IV 2021-02-11 16:07:00 Naina Igor [facility] RAPID DRUG SCREEN, URINE 2021-02-11 03:05:00 Johan [facility] URINALYSIS WITH 2021-02-11 03:05:00 Johan [facility] MICROSCOPIC IF INDICATED [facility] URINALYSIS MICROSCOPIC 2021-02-11 03:05:00 Johan [facility] HOMOCYSTEINE 2021-02-11 02:46:[facility] 2021-02-11 02:46[facility] TSH[facility]FREE T4 IF INDICATED 2021-02-11 02:46:00 Johan [facility] VITAMIN B12 AND FOLATE 2021-02-11 02:46:00 Johan Alison [facility] CBC W/PLT COUNT & AUTO 2021-02-11 02:46:00 Lac[facility] BASIC METABOLIC PANEL (7) 2021-02-11 02:46:00 Johan [facility] MAGNESIUM 2021-02-11 02:46:00 [facility] PHOS[facility]US 2021-02-11 02:46:[facility] C-REACTIVE PROTEIN 2021-02-11 02:46:00 [facility] DIGOXIN LEVEL 2021-02-11 02:46:00 [facility] XR CHEST 1 VIEW PORTABLE 2021-02-10 22:20:00 Johan [facility] / BEDSIDE [facility] POCT-GLUCOSE METER 2021-02-10 21:28:00 Wilmer Vera [facility] LIPID PANEL 2021-02-10 21:22:00 Autumn Pradoutha [facility] CBC W/PLT COUNT & AUTO 2021-02-10 21:21:00 Alison Prado [facility] COMPREHENSIVE METABOLIC 2021-02-10 21:21:00 Alison Prado [facility] PROTHROMBIN TIME/INR 2021-02-10 21:21:00 [place] [facility] APTT 2021-02-10 21:21:00 Alison Prado [facility] MAGNESIUM 2021-02-10 21:21:00 Alison Prado [facility] PHOSPHORUS 2021-02-10 21:21:00 Johan [facility] HIGH SENSITIVITY TROPONIN 2021-02-10 21:21:00 Johan [facility] B-TYPE NATRIURETIC FACTOR 2021-02-10 21:21:00 Alison Prado [facility] (BNP) [facility] LACTIC ACID, VENOUS 2021-02-10 21:21:00 Alison Prado [facility] CREATINE KINASE (CK) 2021-02-10 21:21:00 [facility] HEMOGLOBIN A1C 2021-02-10 21:21:00 [facility] ARRYTHMIA IMPLANT REPORT 2021-02-10 00:00:00 Provider, Default C [facility] - - SCAN Scanning [facility] Plan of Care Planned Activity Planned Date Details Comments Source Future Scheduled 2021-05-[address] [facility] - Test 00:00:00 (#1) [code = [facility] INFLUENZA VACCINE (#1)] Future Scheduled 2020-09-[address] [facility] - Test 00:00:00 (12+) [code = [facility] DEPRESSION SCREENING (12+)] Future Scheduled [address] [facility] Test 00:00:00 malignant neoplasm Medical C enter of cervix (procedure) [code = 747457938] Future Scheduled 2000 DTAP/TDAP/TD [facility] VACCINES (1 - Tdap) [facility] [code = DTAP/TDAP/TD VACCINES (1 - Tdap)] Future Scheduled [address] [facility] - Test 00:00:00 SCREENING [code = Medical Ce nter HEPATITIS C SCREENING] Future Scheduled Screening for [facility] Test malignant neoplasm of cervix (procedure) [code = 161264627] Future Scheduled [facility] [code = INFLUENZA VACCINE] Future Scheduled Screening for [facility] Test malignant neoplasm of cervix (procedure) [code = 303738034] Future Scheduled [facility] [code = INFLUENZA VACCINE] Encounters Start End Encounter Admission Attending Care Care Encounter Source Date/Time Date/Time Type Type Clinicians Facility Department ID 2021-05-12 2021-05-12 Orders Doctor NUNO 1.2.840.114 [id number] 00:00:00 00:00:00 Only Unassigned, PINKY 350.1.13.10 [facility] 4.2.7.2.686 [id number] 2021-04-29 2021-04-29 Office NAKUL Guy 1.2.840.114 [id number] 12:33:16 13:56:43 [facility] 350.1.13.10 [place] 4.2.7.2.686 Profleonard [id number] [address] 2021-04-28 2021-04-28 Orders DANITA Guy 1.2.540.883 [id number] 00:00:00 00:00:00 Only [facility] 350.1.13.10 [facility] 4.2.7.2.686 [id number] 2021-03-19 2021-03-19 Patient Omari, 1.2.840.1 [id number] Methodi 00:00:00 00:00:00 Outreach Ann [address]43.1.[address] 3.430.2.7 Hospit a .3.424783 l .8 2021-03-19 2021-03-19 Patient Salcido, 1.2.840.1 [id number] Methodi 00:00:00 00:00:00 Outreach Ann [address]89.1.[address] 3.430.2.7 Hospit a .3.405246 l .8 2021-03-17 2021-03-18 Emergency Hector Alvarez Main. 1.2.840.1 [id number] Methodi 14:59:00 17:52:00 Veda Bolanos [address]98.1.[address] [place] 3.430.2.7 Hospita .3.788056 l .8 2021-03-17 2021-03-18 Emergency Hector Alvarez. 1.2.840.1 [id number] Methodi 14:59:00 17:52:00 Veda Bolanos [address]3417.1.[address] [place] 3.430.2.7 Hospita .3.861513 l .8 2021-03-17 2021-03-17 Travel 1.2.840.1 1.2.613.327 [id number] Methodi 00:00:00 00:00:[address] 3.430.2.7 0.2.7.3.698 Ho spita .3.439874 084.8 l .8 2021-03-17 2021-03-17 Travel 1.2.840.1 1.2.282.437 [id number] Methodi 00:00:00 00:00:[address] 3.430.2.7 0.2.7.3.698 Ho spita .3.306156 084.8 l .8 2017-09-06 2017-09-08 Inpatient [facility]t [facility] [id number] 10:12:00 02:32:00 [facility] Results Test Description Test Time Test Comments Results Result Comments Source ECG 12 lead 2021-03-19 14:56:41 Test Item Value Reference Range Interpretation Comme nts Ventricular rate (test code = 253) Atrial rate (test code = 255) KY interval (test code = 266) QRSD interval [...] of 17-MAR-2021 15:19,-No significant change was found- [facility] 12 [id number] 14:56:41 Test Item Value Reference Range Interpretation Comments Ventricular rate (test code = 253) Atrial rate (test code = 255) KY interval (test code = 266) QRSD interval (test code = 260) QT interval (test code = 264) QTC interval (test code = 265) P axis 1 (test code = 267) QRS axis 1 (test code = 268) T wave axis (test code = 270) EKG impression (test Normal sinus rhythm with code = 273) sinus arrhythmia-Normal ECG-In automated comparison with ECG of 17-MAR-2021 15:19,-No significant change was found- [facility] [id number] 12:41:23 Test Item Value Reference Range Interpretation Comments Urine culture isolate Mixed alok <=10-3 (test code = 96744-0) col/cc [facility] [id number] 12:41:23 Test Item Value Reference Range Interpretation Comments Urine culture isolate Mixed alok <=10-3 (test code = 94221-5) [facility], (w Contrast, Strain and 3D if needed)2021-03-18 23:04:52 Test Item Value Reference Range Interpretation Comments Ao Root Diameter (test code = 2.73 cm 2318494391) AoV Area, Vmax (test code = 2.24 cm2 4473018384) AoV Area, VTI (test code = 2.25 cm2 8663745886) AoV Mean PG (test code = mmHg 0057865025) AoV Peak PG (test code = mmHg 4663794258) AoV Vmax (test code = 8279620670) 1.46 m/s AoV VTI (test code = 1451667277) 0.28 m IVS,d (test code = 6042486241) 0.72 cm IVS/LVPW,2D (test code = 8058555282) Left Atrium Dimension Anterior 2.68 cm (test code = 7308493750) LV,d (test code = 5373117949) 3.69 cm LV EF,2D (test code = 9132834653) 79.68 % LV,s (test code = 8903384886) 2.17 cm LVOT area (test code = 5181892365) 2.75 cm2 LVOT Diam,S (test code = 1.87 cm 7046238539) LVOT Vmax (test code = 0065691924) 1.18 m/s LVOT VTI (test code = 2092800903) 0.23 m LVPWD,d (test code = 1435479383) 0.65 cm PV Pk Grad (test code = 2798961425) mmHg PV VMAX (test code = 3893923468) 0.84 m/s RVOT Vmax (test code = 3032541944) 0.85 m/s RVSP (TR) (test code = 4357464911) mmHg TR Vpeak (test code = 4839435567) 2.86 mm/s MV E A ratio (test code = 3848012906) RA pressure (test code = mmHg 0605550643) TR pk grad (test code = 9286650357) mmHg MR Vmax (test code = 1542987052) 5.49 m/s E wave decelartion time (test code msec = 4422771690) MV Peak A Alf (test code = 0.76 m/s 9483079237) MV valve area p 1/2 method (test 3.26 cm2 code = 5708302827) MV Peak E Alf (test code = 0.92 m/s 5712509954) MV stenosis pressure 1/2 time (test 67.54 ms code = 2263031181) LVOT stroke volume (test code = 0.63 cm3 6021022821) AV LVOT peak gradient (test code = mmHg 9718129504) RVSP (test code = 0772412923) mmHg Ao Root Diameter (test code = 2.73 cm 8605840514) MV mean gradient (test code = mmHg 7340365333) LV SYS VOL (test code = 4168942674) 15.61 ml LV MARTINS VOL (test code = 57.63 ml 0816265631) LA area s A4C (test code = 11.16 cm2 7769319890) LV SV Teich 2D (test code = 42.02 ml 5856926607) LV Vol s Teich PSAX (test code = 15.61 ml 4224609883) MR peak grad (test code = mmHg 8733131697) MV Vmax (test code = 5406053958) 1.21 m MV VTI Tips (test code = 0.24 m 5903119918) RVOT pk grad (test code = mmHg 9013346349) AoV Vmn (test code = 5277636359) LV FS Teich 2D (test code = 1530195368) MV AE ratio (test code = 4835629203) LV FS Cube 2D (test code = 3630878252) LVOT Vmn (test code = 6908166811) Aov area Vmn (test code = 2.13 cm2 6851497934) LVOT mean grad (test code = mmHg 7755243779) MAX Pred HR (test code = 2534586656) 85 of MPHR (test code = 3015456859) Calc MPHR (test code = 8517022465) bpm LV SV Cube 2D (test code = 39.93 ml 5600938471) LV vol d cube 2D (test code = 50.11 ml 1020804157) LV vol s cube 2D (test code = 10.18 ml 0341255481) MV Decel slope (test code = 3.97 m/s2 6210998178) Pred Exer Dur R1 (test code = 5057530876) Pred METS R1 (test code = 6066432121) LA Vol MOD A4C (test code = 24.20 ml 5247338505) Velocity Ratio (V1/V2) (test code = 0.81 m/s 4689) EF (test code = 3158394648) 72.91 % E/A ratio (test code = 7403112981) LVOT VTI (CM) (test code = 23.00 cm 7342636252) SOMMER (test code = SOMMER) [facility], (w Contrast, Strain and 3D if needed)2021-03-18 23:04:52 Test Item Value Reference Range Interpretation Comments Ao Root Diameter (test code = 2.73 cm 7041563712) AoV Area, Vmax (test code = 2.24 cm2 0015272229) AoV Area, VTI (test code = 2.25 cm2 9375909576) AoV Mean PG (test code = mmHg 8732450247) AoV Peak PG (test code = mmHg 9581028160) AoV Vmax (test code = 5248317532) 1.46 m/s AoV VTI (test code = 5914587930) 0.28 m IVS,d (test code = 3449667292) 0.72 cm IVS/LVPW,2D (test code = 8901288713) Left Atrium Dimension Anterior 2.68 cm (test code = 3527267055) LV,d (test code = 1348166005) 3.69 cm LV EF,2D (test code = 2404191460) 79.68 % LV,s (test code = 5253856805) 2.17 cm LVOT area (test code = 8294021240) 2.75 cm2 LVOT Diam,S (test code = 1.87 cm 4488283305) LVOT Vmax (test code = 1173147564) 1.18 m/s LVOT VTI (test code = 2129520963) 0.23 m LVPWD,d (test code = 9899412296) 0.65 cm PV Pk Grad (test code = 8366746922) mmHg PV VMAX (test code = 8674895774) 0.84 m/s RVOT Vmax (test code = 6879188419) 0.85 m/s RVSP (TR) (test code = 3641555835) mmHg TR Vpeak (test code = 7606156680) 2.86 mm/s MV E A ratio (test code = 6496424387) RA pressure (test code = mmHg 8351587734) TR pk grad (test code = 9359196805) mmHg MR Vmax (test code = 5834256599) 5.49 m/s E wave decelartion time (test code msec = 9751545817) MV Peak A Alf (test code = 0.76 m/s 0730792310) MV valve area p 1/2 method (test 3.26 cm2 code = 0206397355) MV Peak E Alf (test code = 0.92 m/s 2309127760) MV stenosis pressure 1/2 time (test 67.54 ms code = 3487153035) LVOT stroke volume (test code = 0.63 cm3 0157742832) AV LVOT peak gradient (test code = mmHg 5632216137) RVSP (test code = 2831300798) mmHg Ao Root Diameter (test code = 2.73 cm 2307237189) MV mean gradient (test code = mmHg 9162488414) LV SYS VOL (test code = 6903785780) 15.61 ml LV MARTINS VOL (test code = 57.63 ml 1404129328) LA area s A4C (test code = 11.16 cm2 6949346763) LV SV Teich 2D (test code = 42.02 ml 7719053860) LV Vol s Teich PSAX (test code = 15.61 ml 8544151311) MR peak grad (test code = mmHg 3609368045) MV Vmax (test code = 5574435313) 1.21 m MV VTI Tips (test code = 0.24 m 1841666282) RVOT pk grad (test code = mmHg 9258859679) AoV Vmn (test code = 8485939137) LV FS Teich 2D (test code = 7483857649) MV AE ratio (test code = 8992978567) LV FS Cube 2D (test code = 3128765672) LVOT Vmn (test code = 7334084219) Aov area Vmn (test code = 2.13 cm2 6921658858) LVOT mean grad (test code = mmHg 2304199628) MAX Pred HR (test code = 0891732946) 85 of MPHR (test code = 1712598674) Calc MPHR (test code = 5210574117) bpm LV SV Cube 2D (test code = 39.93 ml 4590576921) LV vol d cube 2D (test code = 50.11 ml 2260820827) LV vol s cube 2D (test code = 10.18 ml 2991965954) MV Decel slope (test code = 3.97 m/s2 6953291245) Pred Exer Dur R1 (test code = 0338063043) Pred METS R1 (test code = 5582543336) LA Vol MOD A4C (test code = 24.20 ml 3366665070) Velocity Ratio (V1/V2) (test code = 0.81 m/s 4689) EF (test code = 1798597494) 72.91 % E/A ratio (test code = 3306549425) LVOT VTI (CM) (test code = 23.00 cm 4373694386) SOMMER (test code = SOMMER) [facility] [id number] 17:32:37 Test Item Value Reference Range Interpretation Comments POC glucose (test code = 38765-3) 207 mg/dL 65-99 H Lab Interpretation (test code = Abnormal 81666-1) [facility] [id number] 17:32:37 Test Item Value Reference Range Interpretation Comments POC glucose (test code = 11667-0) 207 mg/dL 65-99 H Lab Interpretation (test code = Abnormal 68418-4) [facility] duplex venous lower [id number] 01:17:37 EXAMINATION: US DUPLEX VENOUS LOWER EXTREMITY [...] is no evidence of deep venous thrombosis. [facility]-[id number] Interface, Radiology Results - 03/17/2021 8:20 PM CDT EXAMINATION: US [...] There is no evidence of deep venous thrombosis.[id number] [facility] lower extremity 2021-03-18 01:17:37EXAMINATION: US DUPLEX VENOUS LOWER EXTREMITY BILATERAL CLINICAL [...] is no evidence of deep venous thrombosis. [facility] [id number] Interface, Radiology Results 03/17/2021 8:20 PM CDTFor matting of this note might be different from the original.EXAMINATION: US DUPLEX VENOUS LOWER EXTREMITY BILATERALCLINICAL HISTORY: Leg deep vein thrombosis (DVT) [...] There is no evidence of deep venous thrombosis.[id number] Hospital XR Chest 1 Vw [id number] 21:32:52EXAMINATION: XR CHEST 1 VW PORTABLE CLINICAL HISTORY: 40 years Female SOB COMPARISON: None. IMPRESSION: Lines, tubes, and devices: Right-sided transvenous cardiac pacemaker. Heart and mediastinum: Cardiomediastinal silhouette is normal. Lungs and pleura: There is no focal airspace disease, pleuraleffusion or pneumothorax. Bones/soft tissues: No acute osseous abnormality. [facility]-[id number] Dictatedand approved by vice president of software development/fellow: Cristhian Calixto M.D. I, Jan Scott MD, personally r eviewed the images and resident's/fellow's findings and agree with the final report. Interface, Radiology Results Incoming 03/17/2021 4:35 PM CDTFormatting of this note might be different from theoriginal.EXAMINATION: XR CHEST 1 VW PORTABLECLINICAL HISTORY: 40 years Female SOBCOMPARISON: None .IMPRESSION:Lines, tubes, and devices: Right-sided transvenous cardiac pacemaker.Heart and mediastinum: Cardiomediastinal silhouette is normal.Lungs and pleura: There is no focal airspace disease, pleural effusion or pneumothorax.Bones/soft tissues: No acute osseous abnormality.[facility]- [id number] and approved by vice president of software development/fellow: Aleksandra Sanchez, Jan Scott MD, personally reviewed the images and resident's/fellow's findings and agree with the final report.[facility] XR Chest 1 Vw [id number] 21:32:52EXAMINATION: XR CHEST 1 VW PORTABLE CLINICAL HISTORY: 40 years Female SOB COMPARISON: None. IMPRESSION: Lines, tubes, and devices: Right-sided transvenous cardiac pacemaker. Heart and mediastinum: Cardiomediastinal silhouette is normal. Lungs and pleura: There is no focal airspace disease, pleuraleffusion or pneumothorax. Bones/soft tissues: No acute osseous abnormality. [facility]-[id number] Dictatedand approved by vice president of software development/fellow: Cristhian Calixto M.D. I, Jan Scott MD, personally r mireyaiewed the images and resident's/fellow's findings and agree with the final report. Interface, Radiology Results 03/17/2021 4:35 PM CDTFormatting of this note might be different from theoriginal.EXAMINATION: XR CHEST 1 VW PORTABLECLINICAL HISTORY: 40 years Female SOBCOMPARISON: None .IMPRESSION:Lines, tubes, and devices: Right-sided transvenous cardiac pacemaker.Heart and mediastinum: Cardiomediastinal silhouette is normal.Lungs and pleura: There is no focal airspace disease, pleural effusion or pneumothorax.Bones/soft tissues: No acute osseous abnormality.[facility]- [id number] and approved by vice president of software development/fellow: Cristhian Calixto M.D.I, Jan Scott MD, personally reviewed the images and resident's/fellow's findings and agree with the final report.[facility] ARRYTHMIA IMPLANT REPORT - [id number] 20:45:31Ordered by an unspecified provider.[facility] ED Preliminary Interpretation - Not an [id number] 20:36:46 Test Item Value Reference Range Interpretation Comments SOMMER (test code = SOMMER) Lab Interpretation (test code = Abnormal 72262-6) [facility] ED Preliminary Interpretation - Not an [id number] 20:36:46 Test Item Value Reference Range Interpretation Comments SOMMER (test code = SOMMER) Lab Interpretation (test code = Abnormal 76709-4) [facility]iscoWplrhqjzRvrbssygi5421-85-56 07:01:00 Test Item Value Reference Range Interpretation Comments Magnesium (test code = 2.5 mg/dL 1.6-2.6 45908-5) SOMMER (test code = SOMMER) Seamer Operator ID - PIAYA L Lab Interpretation (test Normal code = 48511-4) [facility] 07:01:00 Test Item Value Reference Range Interpretation Comments Phosphorus (test code = 4.3 mg/dL 2.3-4.7 2777-1) SOMMER (test code = SOMMER) Seamer Operator ID - PIAYA L Lab Interpretation (test Normal code = 65718-0) [facility] Center[facility] Metabolic [id number] 07:01:00 Test Item Value Reference Range Interpretation Comments Sodium (test code = 137 meq/L 639-472 4598-2) Potassium (test code = 4.3 meq/L 3.5-5.1 2823-3) Chloride (test code = 104 meq/L 98-107 2075-0) CO2 (test code = 24 meq/L -8-9) BUN (test code = 15 mg/dL 7- 3094-0) Creatinine (test code 0.81 mg/dL 0.57-1.25 = 2160-0) Glucose (test code = 108 mg/dL 70-105 H 2345-7) Calcium (test code = 9.2 mg/dL 8.4-10.2 83628-6) EGFR (test code = 79 mL/min/1.73 [place] [address]-8) NOT ACCURATE CREATININE CLEARANCE IN PREDICTING GLOMERULAR FILTRATION RATE . ESTIMATED GFR I S NOT APPLICABLE FOR DIALYSIS PATIENTS. SOMMER (test code = SOMMER) Seamer Operator ID - MACHELLE L Lab Interpretation Abnormal (test code = 64306-5) [facility] METABOLIC [id number] 07:01:00 Test Item Value Reference Range Interpretation Comments SODIUM (BEAKER) 137 meq/L 136-145 (test code = 381) POTASSIUM (BEAKER) 4.3 meq/L 3.5-5.1 (test code = 379) CHLORIDE (BEAKER) 104 meq/L 98-107 (test code = 382) CO2 (BEAKER) (test 24 meq/L - code = 355) BLOOD UREA NITROGEN 15 mg/dL - (BEAKER) (test code = 354) CREATININE (BEAKER) [...] S NOT APPLICABLE FOR DIALYSIS PATIEN TS. Seamer Operator ID - MACHELLE [id number] 07:01:00 Test Item Value Reference Range Interpretation Comments MAGNESIUM (BEAKER) (test code = 2.5 mg/dL 1.6-2.6 627) Seamer Operator ID - MACHELLE [id number] 07:01:00 Test Item Value Reference Range Interpretation Comments PHOSPHORUS (BEAKER) (test code = 4.3 mg/dL 2.3-4.7 604) Seamer Operator ID - PIAYA LCBC with platelet count + automated [id number] 05:37:00 Test Item Value Reference Range Interpretation Comments WBC (test code = 6690-2) 6.8 See_Comment [A utomated message] The system [employer] generated this result transmitted ref erence range: 3.5 - 10 .5 K/L. The refe rence range was not u sed to interpret this result as normal/abnor mal. RBC (test code = 789-8) 5.14 See_Comment [Au tomated message] The system [employer] generated this result transmitted ref erence range: 3.93 - 5 .22 M/L. The refe rence range was not u sed to interpret this result as normal/abnor mal. MCHC (test code = 786-4) 31.6 See_Comment L [A utomated message] The system [employer] generated this result transmitted ref erence range: [...] See_Comment [Aut omated message] 777-3) The system [employer] generated this result transmitted ref erence range: 150 - 45 0 K/CU MM. The referen ce range was not u sed to interpret this result as normal/abnor mal. MPV (test code = 10.0 fL 9.4-12.3 24593-9) nRBC (test code = 413) 0 See_Comment [Aut omated message] The system [employer] generated this result transmitted ref erence range: [...] See_Comment [Aut omated message] 670) The system [employer] generated this result transmitted ref erence range: 1.56 - 6 .13 K/L. The refe rence range was not u sed to interpret this result as normal/abnor mal. # Lymphs (test code = 2.10 See_Comment [Auto mated message] 414) The system [employer] generated this result transmitted ref erence range: 1.18 - 3 .74 K/L. The refe rence range was not u sed to interpret this result as normal/abnor mal. # Monos (test code = 0.48 See_Comment H [Autom ated message] 415) The system [employer] generated this result transmitted ref erence range: 0.24 - 0 .36 K/L. The refe rence range was not u sed to interpret this result as normal/abnor mal. # Eos (test code = 416) 0.26 See_Comment [Au tomated message] The system [employer] generated this result transmitted ref erence range: 0.04 - 0 .36 K/L. The refe rence range was not u sed to interpret this result as normal/abnor mal. # Baso (test code = 417) 0.04 See_Comment [A utomated message] The system [employer] generated this result transmitted ref erence range: 0.01 - 0 .08 K/L. The refe rence range was not u sed to interpret this result as normal/abnor mal. Immature 1 % 0-1 Granulocytes-Relative (test code = 2801) Lab Interpretation (test Abnormal code = 80738-3) [facility] W/PLT COUNT & AUTO [id number] 05:37:00 Test Item Value Reference Range Interpretation [...] code = 2801) MR, MRA, BRAIN, WITHOUT [id number] 16:54:00Reason for exam:->Ischemic Stroke EvaluationFAV[facility] : 1980 Sex: FFINAL REPORT MR, BRAIN, WITHOUT CONTRAST, MR, MRA, BRAIN, WITHOUT CONTRAST, MR, MRA, NECK, WITHOUT IV CONTRAST INDICATION: Stroke, follow upIschemic Stroke Evaluation TECHNIQUE: Multiplanar, multisequence MR imaging of the brain without intravenous contrast.MRA of the head utilizing 3-D dwwf-xa-eymino technique, with 3-D reconstructions.MRA of the neck utilizing 2-D and 3-D pjdz-vb-puyxoh technique, with 3-D reconstructions. COMPARISON: MRI and [...] within the head and neck. Signed: Lakshmi Amadorort Verified Date/Time: 02/11/2021 16:54:16 MR, MRA, NECK, WITHOUT IV [id number] 16:54:00Reason for exam:->Ischemic Stroke Evaluation [facility] 1980 Sex: FFINAL REPORT MR, BRAIN, WITHOUT CONTRAST, MR, MRA, BRAIN, WITHOUT CONTRAST, MR, MRA, NECK, WITHOUT IV CONTRAST INDICATION: Stroke, follow upIschemic Stroke Evaluation TECHNIQUE: Multiplanar, multisequence MR imaging of the brain without intravenous contrast.MRA of the head utilizing 3-D haia-xh-wupafn technique, with 3-D reconstructions.MRA of the neck utilizing 2-D and 3-D ewwr-cx-mckywo technique, with 3-D reconstructions. COMPARISON: MRI and [...] Verified Date/Time: 02/11/2021 16:54:16 MR, BRAIN, WITHOUT [id number] 16:54:00Reason for exam:->Ischemic Stroke Evaluation [facility] 1980 Sex: FFINAL REPORT MR, BRAIN, WITHOUT CONTRAST, MR, MRA, BRAIN, WITHOUT CONTRAST, MR, MRA, NECK, WITHOUT IV CONTRAST INDICATION: Stroke, follow upIschemic Stroke Evaluation TECHNIQUE: Multiplanar, multisequence MR imaging of the brain without intravenous contrast.MRA of the head utilizing 3-D herp-an-tjcqbt technique, with 3-D reconstructions.MRA of the neck utilizing 2-D and 3-D eyyk-gg-eewddm technique, with 3-D reconstructions. COMPARISON: MRI and [...] Date/Time: 02/11/2021 16:54:16 MR brain without IV [id number] 16:54:00Interface, External Ris In - 02/11/2021 4:56 PM CDTFINAL REPORT MR, BRAIN, WITHOUT CONTRAST, MR, MRA, BRAIN, WITHOUT CONTRAST, MR, MRA, NECK, WITHOUT IV CONTRAST INDICATION: Stroke, follow upIschemic Stroke Evaluation TECHNIQUE: Multiplanar, multisequence MR imaging of the brain without intravenous contrast.MRA of the head utilizing 3-D xlcs-du-ukkrmo technique, with 3-D reconstructions.MRA of the neck utilizing 2-D and 3-D rrjs-on-etfnwj technique, with 3-D reconstructions. COMPARISON: MRI and [...] within the head and neck. Signed: Lakshmi Amadorlissette Verified Date/Time: 02/11/2021 16:54:16 [facility] [id number] 16:54:00Interface, External Ris In - 02/11/2021 4:56 PM CDTFINAL REPORT MR, BRAIN, WITHOUT CONTRAST, MR, MRA, BRAIN, WITHOUT CONTRAST, MR, MRA, NECK, WITHOUT IV CONTRAST INDICATION: Stroke, follow upIschemic Stroke Evaluation TECHNIQUE: Multiplanar, multisequence MR imaging of the brain without intravenous contrast.MRA of the head utilizing 3-D zuyf-ul-bnkzsi technique, with 3-D reconstructions.MRA of the neck utilizing 2-D and 3-D ibpo-nj-xnxswc technique, with 3-D reconstructions. COMPARISON: MRI and [...] Lakshmi Amador Verified Date/Time: 02/11/2021 16:54:16 [facility] [id number] 16:54:00Interface, External Ris In - 02/11/2021 4:56 PM CDTFINAL REPORT MR, BRAIN, WITHOUT CONTRAST, MR, MRA, BRAIN, WITHOUT CONTRAST, MR, MRA, NECK, WITHOUT IV CONTRAST INDICATION: Stroke, follow upIschemic Stroke Evaluation TECHNIQUE: Multiplanar, multisequence MR imaging of the brain without intravenous contrast.MRA of the head utilizing 3-D nwgn-di-idnaay technique, with 3-D reconstructions.MRA of the neck utilizing 2-D and 3-D nyzu-qj-ejdrii technique, with 3-D reconstructions. COMPARISON: MRI and [...] Lakshmi Amador Verified Date/Time: 02/11/2021 16:54:16 [facility] 14:02:00 Test Item Value Reference Range Interpretation Comments RPR (test code = 73943-7) Nonreactive Nonreactive Lab Interpretation (test code = Normal 85487-0) [facility]RPR[facility] 14:02:00 Test Item Value Reference Range Interpretation Comments RPR SCREEN (BEAKER) (test code = Nonreactive Nonreactive 420) Hemoglobin [id number] 09:35:00 Test Item Value Reference Range Interpretation Comments Hemoglobin A1C (test code = 4548-4) 6.0 % 4.3-6.1 Lab Interpretation (test code = Normal 69337-1) [facility] CenterHEMOGLOBIN [id number] 09:35:00 Test Item Value Reference Range Interpretation Comments HEMOGLOBIN A1C (BEAKER) (test code = 6.0 % 4.3-6.1 368) Rapid drug screen, [id number] 07:26:00 Test Item Value Reference Range Interpretation Comments Barbiturate Screen Negative Negative (test code = 05580-3) Benzodiazepine Screen Negative Negative (test code = 60282-2) Cocaine (Metab.) Negative Negative Screen (test code = 3397-7) Methadone Screen (test Negative Negative code = 90386-6) Opiate Screen (test Negative Negative code = 14761-0) Cannabinoid Screen Negative Negative (test code = 52338-5) Amph/Methamph Screen Negative Negative (test code = 88980-9) Phencyclidine Screen Negative Negative (test code = 69798-6) pH, UA (test code = 6.5 5.0-8.0 5803-2) SOMMER (test code = SOMMER) DRUG CUTOFF CONC.Cocaine 300 ng/mL Cannabinoid 50 ng/mLBenzodiazepine 200 ng/mLBarbiturate 200 ng/mLPhencyclidine 25 ng/mLOpiate 300 ng/mLMethadone 300 ng/mLAmphetamine/ 1000 ng/mL Methamphetamine This assay provides an unconfirmed qualitative test result for the clinical management of patients in emergency situations. Chain of custody not maintained. Some bold-vuj-vojkomu medications, as well as adulterants, may cause inaccurate results. Clinical correlation should be applied. A more comprehensive drug screen or confirmation of a detected drug may be performed upon request.Seamer Operator ID - VIET Jerez Lab Interpretation Normal (test code = 52430-7) [facility] CenterR[facility] SCREEN, [id number] 07:26:00 Test Item Value Reference Range Interpretation [...] situations. Chain of custody not maintained. Some xkgt-qew-fywqfqj medications, as well as adulterants, may cause inaccurate results. Clinical correlation should be applied. A more comprehensivedrug screen or confirmation of a detected drug may be performed upon request.Seamer Operator ID - VIET MUrinalysis with Microscopic If [id number] 07:11:00 Test Item Value Reference Range Interpretation Comments Color, UA (test code = Light Yellow 5778-6) Clarity, UA (test code = Clear 5767-9) Specific [place], UA (test 1.012 1.001-1.035 code = 5811-5) pH, UA (test code = 6.5 5.0-8.0 5803-2) Protein, UA (test code = Negative Negative 70643-5) Glucose, UA (test code = Negative Negative 365) Ketones, UA (test code = Negative Negative 2514-8) Bilirubin, UA (test code = Negative Negative 35673-9) Blood, UA (test code = Small Negative A 05995-2) Nitrite, UA (test code = Negative Negative 5802-4) Leukocytes, UA (test code Small Negative A = 5799-2) Urobilinogen, UA (test 0.2 mg/dL 0.2-1 code = 49564-6) Specimen Source (test code = 2795) SOMMER (test code = SOMMER) Seamer Operator ID - [auto]Seamer Operator ID - tech Lab Interpretation (test Abnormal code = 41908-2) [facility] CenterUrinalysis Microscopic [id number] 07:11:00 Test Item Value Reference Range Interpretation Comments RBC, UA (test 11 See_Comment [Automated me ssage] code = 32590-3) The system w Vitriflexh generated this result transmitted ref erence range: [...] UA (test code = The system w Vitriflex 37139-8) generated this result transmitted ref erence range: /HPF. Th e reference range was not used to int erpret this result as normal/abnormal . SOMMER (test code Seamer Operator ID - tech = SOMMER) [facility] CenterURINALYSIS WITH MICROSCOPIC IF [id number] 07:11:00 Test Item Value Reference Range Interpretation [...] = 463) SOURCE(BEAKER) (test code = 2795) Seamer Operator ID - [auto]Seamer Operator ID - techURINALYSIS [id number] 07:11:00 Test Item Value Reference Range Interpretation Comments RBC UA (BEAKER) (test code = 519) 11 /HPF WBC UA (BEAKER) (test code = 520) 11 /HPF MUCUS (BEAKER) (test code = 1574) Rare SQUAMOUS EPITHELIAL (BEAKER) (test 3 /HPF code = 516) Seamer Operator ID - techDigoxin [id number] 06:22:00 Test Item Value Reference Range Interpretation Comments Digoxin Lvl (test code = <0.30 0.8-2 L 37889-8) SOMMER (test code = SOMMER) Seamer Operator ID - MACHELLE L Lab Interpretation (test Abnormal code = 38061-3) [facility] CenterDIGOXIN [id number] 06:22:00 Test Item Value Reference Range Interpretation Comments DIGOXIN LEVEL (BEAKER) (test code = < ng/mL 0.80-2.00 L 669) Seamer Operator ID - MACHELLE IZjzfyhbwnmjq7948-41-94 05:58:00 Test Item Value Reference Range Interpretation Comments Homocysteine (test code = 7.3 umol/L 5.1-15.4 16438-0) SOMMER (test code = SOMMER) Seamer Operator ID - PIAYA L Lab Interpretation (test Normal code = 01627-0) [facility] CenterTSH/Free T4 If [id number] 05:58:00 Test Item Value Reference Range Interpretation Comments TSH (test code = 4.368 See_Comment [Automated 48275-4) message] The system which generated this result transmit aida reference range : 0.350 - 4.940 uIU/mL. The reference range was not used to interpret this result as normal/abnormal . SOMMER (test code = SOMMER) Seamer Operator ID - PIAYA L Lab Interpretation Normal (test code = 63369-2) [facility] CenterVitamin B12 and [id number] 05:58:00 Test Item Value Reference Range Interpretation Comments Vitamin B12 (test 557 pg/mL 213-816 code = 2132-9) Folate (test code = 11.20 ng/mL See_Comment [Automa aida 2284-8) message] The system which generated this result transmit aida reference range : >=7.00. The reference range was not used to interpret this result as normal/abnormal . SOMMER (test code = SOMMER) Seamer Operator ID - MACHELLE L Lab Interpretation Normal (test code = 74427-2) [facility] CenterHOMOCYSTEINE2021-05-20 05:58:00 Test Item Value Reference Range Interpretation Comments HOMOCYSTEINE (BEAKER) (test code = 7.3 umol/L 5.1-15.4 642) Seamer Operator ID - MACHELLE LTSH/FREE T4 IF [id number] 05:58:00 Test Item Value Reference Range Interpretation Comments THYROID STIMULATING HORMONE 4.368 uIU/mL 0.350-4.940 (BEAKER) (test code = 772) Seamer Operator ID - MACHELLE LVITAMIN B12 AND [id number] 05:58:00 Test Item Value Reference Range Interpretation Comments VITAMIN B12 557 pg/mL 213-816 (BEAKER) (test code = 774) FOLATE (BEAKER) 11.20 ng/mL See_Comment [Automated message] (test code = 362) The system which generated this result transmitted ref erence range: >=7.00. The reference range was not used to interpr et this result as normal/abnormal . Seamer Operator ID - MACHELLE LC-Reactive Uwoneao2873-04-67 04:54:00 Test Item Value Reference Range Interpretation Comments CRP (test code = 676) 0.81 mg/dL 0-0.5 H SOMMER (test code = SOMMER) Seamer Operator ID - MACHELLE L Lab Interpretation (test Abnormal code = 65022-8) [facility] CenterMAGNESIUM2021-05-20 04:54:00 Test Item Value Reference Range Interpretation Comments MAGNESIUM (BEAKER) 2.1 mg/dL 1.6-2.6 Specimen slightly (test code = 627) hemolyzed Seamer Operator ID - SHAMIKADEANN [id number] 04:54:00 Test Item Value Reference Range Interpretation Comments PHOSPHORUS (BEAKER) 4.3 mg/dL 2.3-4.7 Specimen slightly (test code = 604) hemolyzed Seamer Operator ID - MACHELLE LBASIC METABOLIC [id number] 04:54:00 Test Item Value Reference Range Interpretation [...] S NOT APPLICABLE FOR DIALYSIS PATIEN TS. Seamer Operator ID - MACHELLE LC-REACTIVE [id number] 04:54:00 Test Item Value Reference Range Interpretation Comments C-REACTIVE PROTEIN (BEAKER) (test 0.81 mg/dL 0.00-0.50 H code = 676) Seamer Operator ID Jodie CARTY LCBC W/PLT COUNT & AUTO [id number] 02:54:00 Test Item Value Reference Range Interpretation [...] = 2801) RAD, CHEST, 1 VIEW, NON [id number] 22:40:00Reason for exam:->strokeShould this be performed at the bedside?->Yes [facility] 1980 Sex: FFINAL REPORT RAD, CHEST, 1 VIEW, NON DEPT TECHNIQUE: Frontal view(s) of the chest. INDICATION: stroke. COMPARISON: 08/20/2018 chest radiograph FINDINGS/IMPRESSION: Lines/Tubes: Unchanged 2-lead pacemaker Lungs/pleura: No focal consolidation or definite interstitial pulmonary edema. No pleural effusion. No pneumothorax. Heart and Mediastinum: Unremarkable. Soft Tissues and Bones: Unremarkable. Signed: Wilmer Nieves Verified Date/Time: 02/10/2021 22:40:02 Reading Location: [address] Transitional Reading Room XR chest 1 view portable / [id number] 22:40:00Interface, External Ris In - 02/10/2021 10:42 [...] Nieves Verified Date/Time: 02/10/2021 22:40:02 Reading Location: [address] Transitional Reading Room [facility] W/PLT COUNT & AUTO [id number] 22:16:00 Test Item Value Reference Range Interpretation [...] Range Interpretation Comments BNP (test code = 36083-9) <10 0-100 SOMMER (test code = SOMMER) Seamer Operator ID - BS Lab Interpretation (test Normal code = 47503-3) [facility] CenterB-TYPE NATRIURETIC FACTOR (BNP)2021-02-10 22:04:00 Test Item Value Reference Range Interpretation Comments B-TYPE NATRIURETIC PEPTIDE (BEAKER) < pg/mL 0-100 (test code = 700) Seamer Operator ID - BSHigh Sensitivity Troponin I (BS[facility]/[place] Only)2021-02-10 21:57:00 Test Item Value Reference Range Interpretation Comments Troponin I HS <4 See_Comment [Automated (test code = message] The 85358-1) system which generated this result transmitted reference range : <=17 pg/ml. The reference range was not used to interpret this result as normal/abnormal . SOMMER (test code = Seamer Operator ID - SOMMER) BSThe ELECTRIC POWERLINE EXAMINER STAT High Sensitivity Troponin-I results should be used in conjunction with other diagnostic information such as ECG, clinical observations and information, and patient symptoms to aid in the diagnosis of MD. Lab Interpretation Normal (test code = 27181-2) [facility] CenterHIGH SENSITIVITY TROPONIN [id number] 21:57:00 Test Item Value Reference Range Interpretation Comments HIGH SENSITIVITY < pg/ml See_Comment [Automated message] TROPONIN I (test code = The system which 0696330) generated this result transmitted ref erence range: <=17. Th e reference range was not used to interpr et this result as normal/abnormal . Seamer Operator ID - BSThe ELECTRIC POWERLINE EXAMINER STAT High Sensitivity Troponin-I results should be used in conjunctionwith other diagnostic information such as ECG, clinical observations and information, and patient symptoms to aid in the diagnosis of MD.Lipid [id number] 21:54:00 Test Item Value Reference Range Interpretation Comments Triglycerides (test 171 mg/dL Specimen code = 2571-8) markedly hemolyzed Cholesterol (test 218 mg/dL Specimen code = 2093-3) markedly hemolyzed HDL (test code = 47 mg/dL 2084-9) LDL Calculated (test 137 mg/dL code = 25824-8) SOMMER (test code = Triglyceride SOMMER) Reference Range: Low Risk <150 Borderline 150-199 High Risk 200-499 Very High Risk >=500 Cholesterol Reference Range: Low Risk <200 Borderline 200-239 High Risk >240 HDL Cholesterol Reference Range: Low Risk >=60 High Risk <40 LDL Cholesterol Reference Range: Optimal <100 Near Optimal 100-129 Borderline 130-159 High 160-189 Very High >=190 Seamer Operator ID - BS [facility] CenterLIPID [id number] 21:54:00 Test Item Value Reference Range Interpretation [...] Borderline 130-159 High 160-189 Very High >=190 Seamer Operator ID - BSComprehensive metabolic [id number] 21:52:00 Test Item Value Reference Range Interpretation Comments Protein, Total 8.0 See_Comment Specimen slig htly (test code = hemolyzed 2884-2) [Automated message] The system which generated this result transmit aida reference range : 6.0 - 8.3 gm/dL . The reference range was not u sed to interpret th is result as normal/abnormal . Albumin (test code 4.2 g/dL 3.5-5 Specimen slightly = 57752-2) hemolyzed Alkaline 135 U/L 40-150 Phosphatase (test code = 6768-6) Total Bilirubin 0.2 mg/dL 0.2-1.2 Specimen sli ghtly (test code = hemolyzed 1974-) Sodium (test code = 139 meq/L 634-404 1782-2) Potassium (test 4.5 meq/L 3.5-5.1 Specimen sli ghtly code = 2823-3) hemolyzed Chloride (test code 103 meq/L 98-107 = 2074-0) CO2 (test code = 25 meq/L -29 2028-05) BUN (test code = 9 mg/dL 7- 3094-0) Creatinine (test 0.78 mg/dL 0.57-1.25 Specimen sl ightly code = 2160-0) hemolyzed Glucose (test code 105 mg/dL 70-105 = 2345-7) Calcium (test code 9.6 mg/dL 8.4-10.2 = 65490-1) AST (test code = 28 U/L 5-34 Specimen sl ightly 1920-8) hemolyzed ALT (test code = 52 U/L 6-55 Specimen sl ightly 1742-6) hemolyzed EGFR (test code = 82 mL/min/1.73 [place] [address]-0) NOT ACCURATE CREATININE CLEARANCE IN PREDICTING GLOMERULAR FILTRATION RATE . ESTIMATED GFR I S NOT APPLICABLE FOR DIALYSIS PATIEN SOMMER (test code = Seamer Operator ID - BS SOMMER) [facility] CenterCreatine Kinase (CK)2021-02-10 21:52:00 Test Item Value Reference Range Interpretation Comments Total CK (test code = 70 U/L 29-200 7-6) SOMMER (test code = SOMMER) Seamer Operator ID - BS Lab Interpretation (test Normal code = 31420-7) [facility] CenterMAGNESIUM2021-05-19 21:52:00 Test Item Value Reference Range Interpretation Comments MAGNESIUM (BEAKER) 2.2 mg/dL 1.6-2.6 Specimen slightly (test code = 627) hemolyzed Seamer Operator ID - [id number] 21:52:00 Test Item Value Reference Range Interpretation Comments PHOSPHORUS (BEAKER) 4.4 mg/dL 2.3-4.7 Specimen slightly (test code = 604) hemolyzed Seamer Operator ID - BSCOMPREHENSIVE METABOLIC [id number] 21:52:00 Test Item Value Reference Range Interpretation [...] S NOT APPLICABLE FOR DIALYSIS PATIEN TS. Seamer Operator ID - BSCREATINE KINASE (CK)2021-02-10 21:52:00 Test Item Value Reference Range Interpretation Comments CREATINE KINASE TOTAL (BEAKER) (test 70 U/L 29-200 code = 380) Seamer Operator ID - WQrTHF7483-99-13 21:46:00 Test Item Value Reference Range Interpretation Comments PTT (test code = 09711-3) 30.5 See_Comment [ Automated message] The system [employer] generated this result transmitted ref erence range: 22.5 - 3 6.0 seconds. The re ference range was not u sed to interpret this result as normal/abnor mal. Lab Interpretation (test Normal code = 81658-9) [facility] CenterLactic acid, [id number] 21:46:00 Test Item Value Reference Range Interpretation Comments Lactate, Venous (test 1.96 mmol/L 0.5-2.2 Specim en code = 2872) markedly hemolyzed SOMMER (test code = SOMMER) Seamer Operator ID - BS Lab Interpretation Normal (test code = 38843-6) [facility] CenterAPTT2021-05-19 21:46:00 Test Item Value Reference Range Interpretation Comments PARTIAL THROMBOPLASTIN TIME 30.5 seconds 22.5-36.0 (BEAKER) (test code = 760) LACTIC ACID, [id number] 21:46:00 Test Item Value Reference Range Interpretation Comments LACTATE BLOOD VENOUS 1.96 mmol/L 0.50-2.20 Specime n markedly (2) (BEAKER) (test hemolyzed code = 2872) Seamer Operator ID - BSProthrombin time/[id number] 21:45:00 Test Item Value Reference Interpretation Comments Range Protime (test code = 12.7 See_Comment [Autom ated 8622-2) message] The system which generated this result transmitted reference range : 11.9 - 14.2 seconds. The reference range was not used to interpret this result as normal/abnormal . INR (test code = 0.98 See_Comment [Automated 6191-6) message] The system which generated this result [...] valves. Lab Interpretation Normal (test code = 55122-4) [facility] CenterPROTHROMBIN TIME/[id number] 21:45:00 Test Item Value Reference Range Interpretation Comments PROTIME (BEAKER) 12.7 seconds 11.9-14.2 (test code = 759) INR (BEAKER) (test 0.98 See_Comment [Automat ed message] code = 370) The system [employer] generated this result transmitted ref erence range: <=5.90. The reference range was not used to int erpret this result as normal/abnormal . RECOMMENDED COUMADIN/WARFARIN INR THERAPY RANGESSTANDARD DOSE: 2.0 - 3.0 Includes: PROPHYLAXIS forvenous thrombosis, systemic embolization; TREATMENT for venous thrombosis and/or pulmonary embolus.HIGH RISK: Target INR is 2.5-3.5 for patients with mechanical heart valves.POC-Glucose [id number] 21:39:00 Test Item Value Reference Range Interpretation Comments POC-Glucose Meter (test 93 mg/dL 70-110 : TE STED AT [facility] code = 1538) [address] [facility], [address]: Seamer Operator/Techni rhonda ID = [id number] for CRISTINO JAVIERLETICIA [place] Lab Interpretation (test Normal code = 94994-0) [facility] CenterPOCT-GLUCOSE [id number] 21:39:00 Test Item Value Reference Range Interpretation Comments POC-GLUCOSE METER 93 mg/dL 70-110 : TESTED A T [facility] [address] (BEAKER) (test code = AYLIN Rivera [facility], 1538) [address]: Seamer Operator/Techni rhonda ID = [id number] for CRISTINO SHAYLETICIAYara [id number] 15:45:00 Test Item Value Reference Range Interpretation Comments SURG (test code = SURG) RUN DATE: 09/30/20 [facility] PAGE 1 RUN TIME: 1545 Specimen Inquiry RUN USER: INTERFACE PATIENT: MIGUELADAM YOUNGE LOC: [place] Vergara #: [id number] AGE/SX: 40/F ROOM: RE09/29/20REG DR: Linus Boone MD : 82 BED: DIS: STATUS: [facility] TLOC: SPEC #: [id number] RECD: 09/29/20 STATUS: JUDITHMain TIBURCIO #: [id number] WU: 09/29/[address]: Linus Boone MD ENTERED: 09/29/20 SP TYPE: SURG OTHR DR: Undefined Provider ORDERED: SURG PATH LVL 4 COPIES TO: Linus Boone MD [address] [place] [address] Undefined Provider HISTOLOGY: TISSUE ID BLK PCS DHIRAJ LEV PROCEDURE DISPOSITION ____ ___ ___ ___ STOMACH, NOS A 1 2 PROCEDURES: SURG PATH LVL 4 (09/29/20) TISSUES: A. STOMACH, NOS - GASTRIC BIOPSY CLINICAL HISTORY R10.13, K21.9, K92.0, R14.0, R11.2, R19.7, R19.4 CPT CODES CPT CODE(S): 83792 , , , , , , FINAL DIAGNOSIS Stomach, biopsy: MILD CHRONIC GASTRITIS NEGATIVE FOR INTESTINAL METAPLASIA, DYSPLASIA, OR MALIGNANCY NEGATIVE FOR HELICOBACTER PYLORI ORGANISMS GROSS DESCRIPTION Gastric biopsy. Received in formalin are two wilkinson tissue fragments, 0.4 cm each, all as A. bk/nr Grossing performed at [facility] Pathology, [address] [place] [address], [address], [place] [address]. Rehabilitation Counselor: Aditya Hanson M.D. CONTINUED ON NEXT PAGE RUN DATE: 09/30/20 [facility] PAGE 2 RUN TIME: 154 Specimen Inquiry RUN USER: INTERFACE SPEC #: [id number] PATIENT: ADAM MARSH YOKO #[id number] (Continued) MICROSCOPIC DESCRIPTION Gastric biopsy. Sections demonstrate gastric mucosa with mild chronic inflammation. No dysplasia or malignancy is identified. No evidence of Helicobacter pylori organisms or intestinal metaplasia is seen. Signed SIGNATURE ON FILE MaeganHector M 09/30/20 1545 END OF REPORT COVID [id number] 13:41:00 Test Item Value Reference Range Interpretation Comments COVID 19 INHOUSE AG NEGATIVE Negative Per manu facturer, (test code = negative result s should [id number]) be treated aspr esumptive and, if inconsi [...] symptoms co nsistent with COVID-19. BASIC METABOLIC [id number] 13:40:00 Test Item Value Reference Range Interpretation [...] MG/DL 8.5-10.1 N - XR CHEST 1 [id number] 13:33:00 [facility] 1980 Sex: F Name: ADAM MARSH [facility] : [birth year] Age/S: 40 / F [address] [place] Unit #: [id number] Loc: [place] [address] Phys: Linus Boone MD Acct: [id number] Dis Date: Status: PRE [facility] PHONE #: [phone] Exam Date: 09/28/2020 1326 FAX #: Reason: PREOP EXAMS: CPT: [id number] XR CHEST 1 V 36906 Fluoro Time: DAP (Gy m2): Air Kerma [...] PAGE 1 Signed Report Name: ADAM MARSH [facility] : 1980 Age/S: 40 / F [address] [place] Unit #: [id number] Loc: [place] [address] Phys: Linus Boone MD Acct: [id number] Dis Date: Status: PRE [facility] PHONE #: [phone] Exam Date: 09/28/2020 1326 FAX #: Reason: PREOP EXAMS: CPT: [id number] XR CHEST 1 V 23646 Fluoro Time: DAP (Gy m2): Air Kerma (mGy): <Continued> Technologist: Shari Davila RT(R)(CT) Trnscb Date/Time: 09/28/2020 (9776) JulissaMD16 Orig Print D/T: S: 09/28/2020 (2384) PAGE 2 SignedReportPROTHROMBIN [id number] 13:29:00 Test Item Value Reference Range Interpretation Comments PT PATIENT (test code = PTP) 10.6 SECONDS 9.3-12.9 N INTERNATIONAL NORMAL RATIO 0.95 INR Unit 0.8-1.2 N (test code = INR) THROMBOPLASTIN TIME [id number] 13:29:00 Test Item Value Reference Range Interpretation Comments THROMBOPLASTIN TIME PARTIAL 28.0 SECONDS 26-35 N (test code = PTT) CBC W/AUTO [id number] 13:26:00 Test Item Value Reference Range Interpretation [...] code NO DIFF/SCN CRITERIA = MDIFF) POCT-GLUCOSE [id number] 10:22:00 Test Item Value Reference Range Interpretation Comments POC-GLUCOSE METER 102 mg/dL 70-110 TESTED AT [facility] [address] ([facility] (test code = [address] [place] [place] 1538) [address] MR, MRA, BRAIN, WITHOUT [id number] 09:32:00Reason for exam:->Ischemic Stroke EvaluationFINAL REPORT MRA Head CLINICAL HISTORY: Ischemic Stroke TECHNIQUE: MRA of the head utilizing 3-D beqc-sg-uekvkz technique, with 3-D reconstructions. COMPARISON: None FINDINGS: There is no evidence of intracranial aneurysm, focal stenosis, or major branch vessel occlusion. IMPRESSION: No evidence for a major [place] proximal branch vessel occlusion. MRA Neck CLINICAL HISTORY: Ischemic Stroke TECHNIQUE: MRA of the neck utilizing 2-D and 3-D bdcf-pj-opnqxy technique, with 3-D reconstructions. COMPARISON: None FINDINGS: The carotid arteries in the neck are patent including their bifurcations. There is antegrade flow in the vertebral arteries in the neck. IMPRESSION: No evidence of hemodynamically significant stenosis in the cervical carotid or vertebral arteries by NASCET criteria. Signed: Santos Winn MDReport Verified Date/Time: 08/21/2018 09:32:09 Reading Location: [address] Neuro Reading Room MR, MRA, NECK, WITHOUT IV [id number] 09:32:00Reason for exam:->Ischemic Stroke EvaluationFINAL REPORT MRA Head CLINICAL HISTORY: Ischemic Stroke TECHNIQUE: MRA of the head utilizing 3-D btqw-yk-yrredr technique, with 3-D reconstructions. COMPARISON: None FINDINGS: There is no evidence of intracranial aneurysm, focal stenosis, or major branch vessel occlusion. IMPRESSION: No evidence for a major [place] proximal branch vessel occlusion. MRA Neck CLINICAL HISTORY: Ischemic Stroke TECHNIQUE: MRA of the neck utilizing 2-D and 3-D sopd-st-fpveoc technique, with 3-D reconstructions. COMPARISON: None FINDINGS: The carotid arteries in the neck are patent including their bifurcations. There is antegrade flow in the vertebral arteries in the neck. IMPRESSION: No evidence of hemodynamically significant stenosis in the cervical carotid or vertebral arteries by NASCET criteria. Signed: Santos Winn MDRiman Verified Date/Time: 08/21/2018 09:32:09 Reading Location: [address] Neuro Reading Room MR, BRAIN, WITHOUT [id number] 09:25:00Reason for exam:- >Ischemic Stroke EvaluationFINAL REPORT [...] Winn Verified Date/Time: 08/21/2018 09:25:25 Reading Location: [facility] C013V Neuro R ding Room POCT-GLUCOSE [id number] 21:26:00 Test Item Value Reference Range Interpretation Comments POC-GLUCOSE METER 119 mg/dL 70-110 H TESTED AT [place] [address] ([facility]) (test code = AYLIN Rivera [facility] 1538) [id number] POCT-GLUCOSE [id number] 18:03:00 Test Item Value Reference Range Interpretation Comments POC-GLUCOSE METER 119 mg/dL 70-110 H TESTED AT [place] [address] ([facility]) (test code = AYLIN Rivera [facility] 1538) [id number] POCT-GLUCOSE [id number] 12:39:00 Test Item Value Reference Range Interpretation Comments POC-GLUCOSE METER 120 mg/dL 70-110 H TESTED AT [place] [address] ([facility]) (test code = AYLIN Rivera [facility] 1538) [address] RAD, CHEST, 1 VIEW, NON [id number] 12:04:00Reason for exam:->To Locate Heart Device (Pacemaker)Should [...] MDReport Verified Date/Time: 08/20/2018 12:04:06 Reading Location: [facility] Reading Room POCT-GLUCOSE [id number] 09:17:00 Test Item Value Reference Range Interpretation Comments POC-GLUCOSE METER 121 mg/dL 70-110 H TESTED AT [place] [address] ([facility] (test code = [facility] 1538) [id number] BASIC METABOLIC [id number] 06:56:00 Test Item Value Reference Range Interpretation [...] NOT APPLICABLE FOR DIALYSIS PATIEN TS. POCT-GLUCOSE [id number] 21:09:00 Test Item Value Reference Range Interpretation Comments POC-GLUCOSE METER 109 mg/dL 70-110 TESTED AT [place] [address] ([facility]) (test code = [facility] 1538) [id number] POCT-GLUCOSE [id number] 17:15:00 Test Item Value Reference Range Interpretation Comments POC-GLUCOSE METER 117 mg/dL 70-110 H TESTED AT [place] [address] ([facility]) (test code = [facility] 1538) [id number] VITAMIN B12 AND [id number] 06:39:00 Test Item Value Reference Range Interpretation Comments VITAMIN B12 (BEAKER) (test code = 524 pg/mL 213-430 184) FOLATE (BEAKER) (test code = 362) 13.5 ng/mL >=7.0 BASIC METABOLIC [id number] 05:48:00 Test Item Value Reference Range Interpretation [...] S NOT APPLICABLE FOR DIALYSIS PATIEN TS. [id number] 15:42:00 Test Item Value Reference Range Interpretation Comments RPR SCREEN (BEAKER) (test code = Nonreactive Nonreactive 420) HEMOGLOBIN [id number] 09:14:00 Test Item Value Reference Range Interpretation Comments HEMOGLOBIN A1C (BEAKER) (test code = 5.3 % 4.3-6.1 368) TSH/FREE T4 IF [id number] 04:49:00 Test Item Value Reference Range Interpretation Comments THYROID STIMULATING HORMONE 3.18 uIU/mL 0.35-4.94 (BEAKER) (test code = 772) HEPATIC FUNCTION [id number] 04:38:00 Test Item Value Reference Range Interpretation [...] (test code = 347) hemolyzed BASIC METABOLIC [id number] 04:38:00 Test Item Value Reference Range Interpretation [...] NOT APPLICABLE FOR DIALYSIS PATIEN TS. LIPID [id number] 04:38:00 Test Item Value Reference Range Interpretation [...] (test code = 413) AFB Culture and [id number] 13:24:00Specimen/Source: Wound/PACEMAKERCollected: 09/05/2017 19:45 Status: Final Last Updated: 11/01/2017 13:24 [id number] (Final) (Final) 09/07/17 No acid fast bacill seen on direct smear Culture Result (Final) (Final) 11/01/17 No growth of AFB at six (6) weeksFungus Culture with [id number] 12:12:00 Specimen/Source: Wound/PACEMAKERCollected: 09/05/2017 19:45 Status: Final Last Updated: 10/22/2017 12:12 Fungal Smear Result (Final) (Final) 09/06/17 No yeast or hyphae seen Culture Result (Final) (Final) 10/22/17 No fungus isolated at 6 weeksCulture, Blood [id number] 08:23:00Specimen: BloodCollected: 09/04/2017 20:30 Status: Final Last Updated: 09/10/2017 08:23 Culture Result (Final) (Final) No Growth After 5 DaysCulture, Blood [id number] 08:23:00Specimen: BloodCollected: 09/04/2017 20:15 Status: Final Last Updated: 09/10/2017 08:23 Culture Result (Final) (Final) No Growth After 5 DaysCulture, Wound [id number] 08:52:00Specimen: WoundCollected: 09/05/2017 19:45 Status: Final Last Updated: 09/08/2017 08:52 Gram Stain (Final) (Final) 09/06/17 No organisms seen, Few WBC's Culture Result (Final) (Final) 09/08/17 Anaerobic culture:No anaerobes isolated at 3 days Isolate (Final) (Final) 09/07/17Few Staph-coag positive Isolate Staph-coag positive JERMAINE (mcg/ml) Amoxicillin/Clav (AUG)<=4/2 Susceptible Ampicillin (AM) >8 Resistant Ampicillin/Sulb (A/S) <=8/4 Susceptible Cefazolin (CFZ) <=4 Susceptible Ceftriaxone (MANPOWER DEVELOPMENT MANAGER) <=4 Susceptible Chloramphenicol (C) <=8 Susceptible Ciprofloxacin (CP) <=1 Susceptible Clindamycin (CM) 0.5 Susceptible Erythromycin (E) <=0.25 Susceptible Gentamicin (GM) <=1 Susceptible Imipenem (IMP) <=4 Susceptible Levofloxacin (LEV) <=0.5 Susceptible Linezolid (LNZ) 4 Susceptible Oxacillin (OX1) 0.5 Susceptible Penicillin (P) >8 Resistant Rifampin (RA) <=1 Susceptible Tetracycline (TE) <=1 Susceptible Trimethoprim/Sulfa <=0.5/9.Susceptible (SXT) 5 Vancomycin (VA) 2 SusceptibleRenal [id number] 08:51:00 Test Item Value Reference Range Interpretation [...] National Kidney Foundation,http :[email or web address] ep.nih.gov CBC with [id number] 07:39:00 Test Item Value Reference Range Interpretation [...] code = ALYMPH) 1.7 K/cumm 0.5-4.6 N [place] Abs (test code = AMONO) 0.3 K/cumm 0.0-1.2 N Eos Abs (test code = AEOS) 0.29 K/cumm 0.00-0.74 N Baso Abs (test code = ABASO) 0.0 K/cumm 0.00-0.21 N Vancomycin, [id number] 12:33:00 Test Item Value Reference Range Interpretation Comments Vanco, Trou (test code = VANTR) 7.9 ug/mL 10.0-20.0 L Magnesium, [id number] 06:37:00 Test Item Value Reference Range Interpretation Comments Magnesium (test code = MG) 2.4 mg/dL 1.7-2.5 N Renal [id number] 06:29:00 Test Item Value Reference Range Interpretation [...] National Kidney Foundation,http ://nkd ep.nih.gov BHCG, Serum, [id number] 06:26:00 Test Item Value Reference Range Interpretation Comments Preg Qual [Se] (test code = BSHCG) Negative Negative N CBC with [id number] 06:24:00 Test Item Value Reference Range Interpretation [...] code = ALYMPH) 1.6 K/cumm 0.5-4.6 N [place] Abs (test code = AMONO) 0.4 K/cumm 0.0-1.2 N Eos Abs (test code = AEOS) 0.18 K/cumm 0.00-0.74 N Baso Abs (test code = ABASO) 0.0 K/cumm 0.00-0.21 N XR CHEST 1 [id number] 16:29:55XR CHEST 1 VIEWLOCATION: [id number]: None.INDICATION: REVIEW PICC LINE PLACEMENTDISCUSSION:AP chest and [...] = TSH) 3.44 mIU/mL 0.270-4.200 N Lipid [id number] 05:47:00 Test Item Value Reference Range Interpretation Comments Cholesterol (test 160 mg/dL 0-200 N code = CHOL) Triglycerides (test 126 mg/dL 9-200 N code = TRIG) HDL (test code = 35 mg/dL 50-60 L HDL) Chol/HDL (test code 4.6 Ratio 0.0-4.4 H = CHOLPHDL) LDL, Calculated 100 0-130 N (NOTE)RISK O F HEART (test code = LDLC) DISEASEPu blished by [place] Heart AssociationAnal yte Optim al Boderline Increased RiskC HOL <200 200-239 >240TRI G <150 150-199 >200HDL Male: >60 <40HDL Female: >60 <50 LDL < 100 130-15 9 >160 LDL NEAR OPTIMAL IS 100- 129 VLDL (test code = 25 mg/dL 5-40 N VLDL) LDL/HDL (test code = 3 LDLPHDL) Basic Metabolic [id number] 05:47:00 Test Item Value Reference Range Interpretation [...] the National Kidney Foundation,http ://nkd ep.nih.gov Magnesium, [id number] 05:47:00 Test Item Value Reference Range Interpretation Comments Magnesium (test code = MG) 2.3 mg/dL 1.7-2.5 N CBC with [id number] 05:36:00 Test Item Value Reference Range Interpretation [...] code = ALYMPH) 2.2 K/cumm 0.5-4.6 N [place] Abs (test code = AMONO) 0.3 K/cumm 0.0-1.2 N Eos Abs (test code = AEOS) 0.24 K/cumm 0.00-0.74 N Baso Abs (test code = ABASO) 0.0 K/cumm 0.00-0.21 N Partial Thromboplastin [id number] 21:26:00 Test Item Value Reference Range Interpretation Comments aPTT (test code = PTT) 29.00 seconds 24.39-37.25 N Prothrombin [id number] 21:26:00 Test Item Value Reference Range Interpretation Comments PT (test code = PT) 10.70 seconds 9.78-13.35 N INR (test code = INR) 0.95 Ratio 0.6-1.2 N Comprehensive Metabolic [id number] 21:23:00 Test Item Value Reference Range Interpretation [...] National Kidney Foundation,http ://nkd ep.nih.gov CBC with [id number] 21:16:00 Test Item Value Reference Range Interpretation [...] code = ALYMPH) 2.2 K/cumm 0.5-4.6 N [place] Abs (test code = AMONO) 0.4 K/cumm 0.0-1.2 N Eos Abs (test code = AEOS) 0.17 K/cumm 0.00-0.74 N Baso Abs (test code = ABASO) 0.1 K/cumm 0.00-0.21 N
[2021-05-18 01:58] LABS: Urine Blood Trace-intact (Negative); Urine Glucose Negative (Negative); Urine Protein Negative (Negative); Urine Specific Gravity 1.025 (1.005-1.030); Urine pH 6.5 (5.0-7.0)
[2021-05-18 03:06] LABS: Absolute Lymphocytes (CBC) 2.3 K/uL (0.7-4.9); Basophils % 0.8 % (0-1.3); Hematocrit 38.7 % (36.0-45.0); Lymphocytes % 35.2 % (15.3-44.8); MPV 8.5 fL (7.6-11.3); RBC Red Blood Cell Count 4.51 M/uL (3.86-4.86)
[2021-05-18 03:12] LABS: ALT/SGPT 28 U/L (12-78); AST/SGOT 18 U/L (15-37); Albumin 3.7 g/dL (3.4-5.0); Alkaline Phosphatase 134 U/L (45-117); BUN Blood Urea Nitrogen 11 mg/dL (7-18); Bicarbonate 26 mmol/L (21-32); Bilirubin Direct < 0.1 mg/dL (0-0.2); Bilirubin Total 0.2 mg/dL (0.2-1.0); Glucose Level 101 mg/dL (74-106); Lipase 117 U/L (73-393); Potassium 3.8 mmol/L (3.5-5.1); Protein, Total 7.6 g/dL (6.4-8.2); Sodium Level 140 mmol/L (136-145)
--- NOTE | 2021-05-18 03:46 | ER ---
Nurse's Notes [facility] [place], [place] Name: Jenni Draper Age: 40 yrs Sex: Female : 1980 Arrival Date: 05/18/2021 Time: 01:30 Bed 14 Private MD: Diagnosis: Acute cystitis with hematuria Presentation: 05/18 01:35 Chief complaint: Patient states: RLQ pain that radiates into back that started at em midnight, also reports urinating blood and nausea, denies vomiting and diarrhea. Coronavirus screen: Client denies travel out of the [place] in the last 14 days. Ebola Screen: Patient negative for fever greater than or equal to 101.5 degrees Fahrenheit, and additional compatible Ebola Virus Disease symptoms Patient denies exposure to infectious person. Patient denies travel to an Ebola-affected area in the 21 days before illness onset. No symptoms or risks identified at this time. Initial Sepsis Screen: Does the patient meet any 2 criteria? No. Patient's initial sepsis screen is negative. Does the patient have a suspected source of infection? No. Patient's initial sepsis screen is negative. Risk Assessment: Do you want to hurt yourself or someone else? Patient reports no desire to harm self or others. Onset of symptoms was May 18, 2021. 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: 01:37 LMP N/A - Hysterectomy em Historical: - Allergies: 01:37 Adhesives; em 01:37 Aspirin; em 01:37 Bactrim; em 01:37 Benadryl; em 01:37 cefixime; em 01:37 Cipro IV; em 01:37 Clindamycin; em 01:37 coconut oil; em 01:37 Demerol; em 01:37 Detrol; em 01:37 Diltiazem; em 01:37 Doxycycline; em 01:37 FISH PRODUCT DERIVATIVES; em 01:37 GABAPENTIN; em 01:37 Iodine; em 01:37 ivabradine; em 01:37 Latex, Natural Rubber; em 01:37 Levofloxacin; em 01:37 Morphine; em 01:37 PENICILLINS; em 01:37 quetiapine; em 01:37 Seroquel; em 01:37 Sulfa (Sulfonamide Antibiotics); em 01:37 Suprax; em 01:37 tolterodine; em - PMHx: 01:37 Asthma; mitral valve prolapse; Atrial Fib; Bronchitis; CHF; Bipolar disorder; em - PSHx: 01:37 Cholecystectomy; hysterectomy; left shoulder; right hand; em - Immunization history:: Adult Immunizations up to date, Client reports receiving the 2nd dose of the Covid vaccine. - Social history:: Smoking status: Patient denies any tobacco usage or history of. Screenin:59 Abuse screen: Denies threats or abuse. Denies injuries from another. Nutritional ms4 screening: No deficits noted. Tuberculosis screening: No symptoms or risk factors identified. Fall Risk None identified. Assessment: 01:57 Reassessment: IV attempt x2 unsuccessful. Pain: Complains of pain in right flank. ms4 Neuro: No deficits noted. Cardiovascular: No deficits noted. Respiratory: No deficits noted. GI: Bowel sounds present X 4 quads. Abd is soft and non tender X 4 quads. Reports lower abdominal pain. Vital Signs: 01:35 BP 114 / 81; Pulse 109; Resp 20; Temp 97.8; Pulse Ox 99% on R/A; Weight 60.78 kg; em Height 4 ft. 11 in. (149.86 cm); Pain 9/10; 04:03 BP 121 / 84; Pulse 89; Resp 18; Pulse Ox 99% ; ms4 01:35 Body Mass Index 27.06 (60.78 kg, 149.86 cm) em ED Course: 01:30 Patient arrived in ED. wm 01:37 Triage completed. em 01:37 Arm band placed on. em 01:42 Bobby Sheriff MD is Attending Physician. tw4 01:57 Urine Microscopic Only Sent. ms4 02:07 Missed attempt(s): Bleeding controlled, band aid applied, catheter tip intact. oe 02:27 CT Stone Protocol In Process Unspecified. EDMS 03:00 Basic Metabolic Panel Sent. ms4 Administered Medications: 03:40 Drug: Ketorolac 30 mg Route: IVP; Site: left antecubital; ms4 03:40 Follow up: Response: No adverse reaction ms4 03:56 Drug: Rocephin (cefTRIAXone) 1 grams Route: IV; Rate: bolus; Site: left antecubital; ms4 Outcome: 03:45 Discharge ordered by . tw4 04:04 Patient left the ED. ms4 Signatures: Dispatcher [employer] Chaz Fleming, RN RN em Chato Contreras Terrence, MD MD tw4 Usha Miller Mikaela, RN RN ms4 Corrections: (The following items were deleted from the chart) 03:40 01:37 Allergies: Toradol; em ms4
--- NOTE | 2021-05-18 03:46 | EDPHYS ---
Physician Documentation [facility] Name: Jenni Draper Age: 40 yrs Sex: Female : 1980 Arrival Date: 05/18/2021 Time: 01:30 Bed 14 Private MD: ED Physician Bobby Sheriff HPI: 05/18 03:39 This 40 yrs old Female presents to ER via Wheelchair with complaints of tw4 Peeing blood, Abdominal Pain - RLQ. 03:39 Onset: The symptoms/episode began/occurred today. Modifying factors: The symptoms are tw4 alleviated by nothing, the symptoms are aggravated by nothing. Associated signs and symptoms: The patient has no apparent associated signs or symptoms. Severity of symptoms: At their worst the symptoms were. The patient has not experienced similar symptoms in the past. CLINICAL NURSING ASSISTANT: 01:37 LMP N/A - Hysterectomy em Historical: - Allergies: 01:37 Adhesives; em 01:37 Aspirin; em 01:37 Bactrim; em 01:37 Benadryl; em 01:37 cefixime; em 01:37 Cipro IV; em 01:37 Clindamycin; em 01:37 coconut oil; em 01:37 Demerol; em 01:37 Detrol; em 01:37 Diltiazem; em 01:37 Doxycycline; em 01:37 FISH PRODUCT DERIVATIVES; em 01:37 GABAPENTIN; em 01:37 Iodine; em 01:37 ivabradine; em 01:37 Latex, Natural Rubber; em 01:37 Levofloxacin; em 01:37 Morphine; em 01:37 PENICILLINS; em 01:37 quetiapine; em 01:37 Seroquel; em 01:37 Sulfa (Sulfonamide Antibiotics); em 01:37 Suprax; em 01:37 tolterodine; em - PMHx: 01:37 Asthma; mitral valve prolapse; Atrial Fib; Bronchitis; CHF; Bipolar disorder; em - PSHx: 01:37 Cholecystectomy; hysterectomy; left shoulder; right hand; em - Immunization history:: Adult Immunizations up to date, Client reports receiving the 2nd dose of the Covid vaccine. - Social history:: Smoking status: Patient denies any tobacco usage or history of. ROS: 03:39 Positive for hematuria, Negative for injury or acute deformity, urinary symptoms, tw4 urinary frequency, burning with urination, difficulty urinating, bladder incontinence, foul smelling urine, vaginal itching, menstrual abnormality. 03:39 Constitutional: Negative for fever, chills, and weight loss, Eyes: Negative for injury, pain, redness, and discharge, Cardiovascular: Negative for chest pain, palpitations, and edema, Respiratory: Negative for shortness of breath, cough, wheezing, and pleuritic chest pain, Abdomen/GI: Negative for abdominal pain, nausea, vomiting, diarrhea, and constipation, Back: Negative for injury and pain, MS/Extremity: Negative for injury and deformity, Skin: Negative for injury, rash, and discoloration, Neuro: Negative for headache, weakness, numbness, tingling, and seizure. Exam: 03:39 Constitutional: This is a well developed, well nourished patient who is awake, alert, tw4 and in no acute distress. Head/Face: Normocephalic, atraumatic. Chest/axilla: Normal chest wall appearance and motion. Nontender with no deformity. No lesions are appreciated. Cardiovascular: Regular rate and rhythm with a normal S1 and S2. No gallops, murmurs, or rubs. Normal PMI, no JVD. No pulse deficits. Respiratory: Lungs have equal breath sounds bilaterally, clear to auscultation and percussion. No rales, rhonchi or wheezes noted. No increased work of breathing, no retractions or nasal flaring. Back: No spinal tenderness. No costovertebral tenderness. Full range of motion. MS/ Extremity: Pulses equal, no cyanosis. Neurovascular intact. Full, normal range of motion. Neuro: Awake and alert, GCS 15, oriented to person, place, time, and situation. Cranial nerves II-XII grossly intact. Motor strength 5/5 in all extremities. Sensory grossly intact. Cerebellar exam normal. Normal gait. Vital Signs: 01:35 BP 114 / 81; Pulse 109; Resp 20; Temp 97.8; Pulse Ox 99% on R/A; Weight 60.78 kg; em Height 4 ft. 11 in. (149.86 cm); Pain 9/10; 04:03 BP 121 / 84; Pulse 89; Resp 18; Pulse Ox 99% ; ms4 01:35 Body Mass Index 27.06 (60.78 kg, 149.86 cm) em MDM: 01:42 Patient medically screened. 05/18 01:43 Order name: Basic Metabolic Panel 05/18 01:43 Order name: CBC with Diff; Complete Time: 03:27 05/18 03:28 Interpretation: Within normal limits. 05/18 01:43 Order name: Hepatic Function; Complete Time: 03:27 tw 05/18 03:27 Interpretation: Normal except: ALK 134; GLOB 3.9; A/G 0.9. 05/18 01:43 Order name: Lipase; Complete Time: 03:27 [facility] 05/18 01:43 Order name: Basic Metabolic Panel; Complete Time: 03:27 EDMS 05/18 03:27 Interpretation: Normal except: CL 110. 05/18 01:34 Order name: Urine Dipstick-Ancillary (obtain specimen); Complete Time: 01:57 05/18 01:43 Order name: IV Saline Lock; Complete Time: 01:53 05/18 01:43 Order name: Labs collected and sent; Complete Time: 01:53 05/18 01:43 Order name: CT Stone Protocol 05/18 01:57 Order name: Urine Dipstick-Ancillary; Complete Time: 03:27 EDRI 05/18 03:28 Interpretation: Normal except: UBLD Trace-intact. tw4 Administered Medications: 03:40 Drug: Ketorolac 30 mg Route: IVP; Site: left antecubital; ms4 03:40 Follow up: Response: No adverse reaction ms4 03:56 Drug: Rocephin (cefTRIAXone) 1 grams Route: IV; Rate: bolus; Site: left antecubital; ms4 Disposition Summary: 05/18/21 03:45 Discharge Ordered Location: Home tw4 Problem: new tw4 Symptoms: have improved tw4 Condition: Stable tw4 Diagnosis - Acute cystitis with hematuria tw4 Followup: tw4 - With: Private Physician - When: Upon discharge from the Emergency Department - Reason: Recheck today's complaints, Continuance of care, Re-evaluation by your physician Discharge Instructions: - Discharge Summary Sheet tw4 - Hematuria, Adult tw4 - Urinary Tract Infection, Adult tw4 Forms: - Medication Reconciliation Form tw4 - Thank You Letter tw4 - Antibiotic Education tw4 - Prescription Opioid Use tw4 Prescriptions: - Ibuprofen 800 mg Oral Tablet - take 1 tablet by ORAL route every 8 hours As needed take with food; 30 tablet; tw4 Refills: 0, Product Selection Permitted - Macrobid 100 mg Oral Capsule - take 1 capsule by ORAL route every 12 hours for 7 days; 14 capsule; Refills: 0, tw4 Product Selection Permitted Signatures: Dispatcher [employer] Chaz Fleming RN RN Bobby Joe MD MD tw4 Opal Acosta RN RN ms4 Corrections: (The following items were deleted from the chart) 03:40 01:37 Allergies: Toradol; em ms4
[2021-05-18] MEDS ORDERED: KETOROLAC 30 MG/ML INJ ONE (04:09)
[2021-05-18] MEDS ORDERED: CEFTRIAXONE 1000 MG/VIAL ONE (04:13)
[2021-05-18 04:14] VITALS: TEMP 97.8; O2SAT 99
[2021-05-18 04:18] VITALS: BP 121/84
--- NOTE | 2021-05-18 09:53 | RAD REPORT ---
EXAM DESCRIPTION: CT - Stone Protocol - 05/18/2021 6:35 am CLINICAL HISTORY: The patient is 40 years old and is Female; ABD PAIN TECHNIQUE: Axial computed tomography images of the abdomen and pelvis without intravenous contrast. Sagittal and coronal reformatted images were created and reviewed. This CT exam was performed usi ng one or more of the following dose reduction techniques: automated exposure control, adjustment o f the mA and/or kV according to patient size, and/or use of iterative reconstruction technique. COMPARISON: CT chest abdomen and pelvis without contrast February 21, 2021. FINDINGS: Lung bases: Unremarkable. No mass. No consolidation. ABDOMEN: Liver: Liver is partially visualized. Gallbladder and bile ducts: Gallbladder is surgically absent. No ductal dilation. Pancreas: Unremarkable. No ductal dilation. Spleen: Unremarkable. No splenomegaly. Adrenals: Unremarkable. No mass. Kidneys and ureters: Punctate nonobstructing calcifications in the kidneys bilaterally. Stomach and bowel: Unremarkable. No obstruction. No mucosal thickening. PELVIS: Appendix: No findings to suggest acute appendicitis. Bladder: Unremarkable. No stones. Reproductive: Uterus is not seen. ABDOMEN and PELVIS: Intraperitoneal space: Unremarkable. No free air. No significant fluid collection. Bones/joints: No acute fracture. No dislocation. Soft tissues: Unremarkable. Vasculature: Unremarkable. No abdominal aortic aneurysm. Lymph nodes: Unremarkable. No enlarged lymph nodes. IMPRESSION: 1. No acute finding. 2. Additional non-emergent findings as above. Electronically signed by: Win Bagley MD 05/18/2021 3:13 AM CDT Due to temporary technical issues with the PACS/Fluency reporting system, reports are being signed by the in house radiologists without review as a courtesy to insure prompt reporting. The interpreting radiologist is fully responsible for the content of the report.
== END 2021-05-18 04:04 | disposition home or self-care (01) ==
LOC: ER 01:28
DX: N30.01 Acute cystitis with hematuria (principal); Z88.0 Allergy status to penicillin; Z88.1 Allergy status to other antibiotic agents; Z88.2 Allergy status to sulfonamides; Z88.3 Allergy status to other anti-infective agents; Z88.5 Allergy status to narcotic agent; Z88.6 Allergy status to analgesic agent; Z88.8 Allergy status to other drugs, medicaments and biological substances; Z91.013 Allergy to seafood; Z91.018 Allergy to other foods; Z91.040 Latex allergy status
CPT/HCPCS: 36415; 74176; 76377; 80048; 80076; 81003; 83690; 85025; 96374; 96375; 99283

== ENCOUNTER 2021-06-09 20:34 | Emergency (ER) | payer OTHER ==
[2021-06-09] MEDS ORDERED: DIAZEPAM 5 MG TABLET ONE (21:56)
[2021-06-09] MEDS ORDERED: HYDROCODONE/APAP 10/325 TAB ONE (21:56)
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
--- NOTE | 2021-06-09 22:07 | EDPHYS ---
Physician Documentation [facility] Name: Jenni Draper Age: 40 yrs Sex: Female : 1980 Arrival Date: 06/09/2021 Time: 20:37 Bed 10 Private MD: ED Physician Caio Aceves HPI: 06/09 21:28 This 40 yrs old Female presents to ER via Ambulatory with complaints of Fall taty Injury. 21:28 Details of fall: The patient fell from an upright position, while walking. Onset: The taty symptoms/episode began/occurred just prior to arrival. Associated injuries: The patient sustained injury to the low back, decreased range of motion, pain. Severity of symptoms: At their worst the symptoms were mild, in the emergency department the symptoms are unchanged. The patient has not experienced similar symptoms in the past. Historical: - Allergies: 21:06 PENICILLINS; wg 21:06 Morphine; wg 21:06 Aspirin; wg 21:06 Sulfa (Sulfonamide Antibiotics); wg 21:06 Latex, Natural Rubber; wg 21:06 Iodine; wg 21:06 Adhesives; wg 21:06 tramadol; wg - Home Meds: 21:06 Digoxin Oral [Active]; Coreg Oral [Active]; Keppra Oral [Active]; Eliquis oral wg [Active]; Nexium Oral [Active]; Albuterol Inhl [Active]; Crestor oral [Active]; Xanax Oral [Active]; BuSpar Oral [Active]; Vraylar oral [Active]; Effexor XR Oral [Active]; - PMHx: 21:06 Asthma; Bipolar disorder; Anxiety; Atrial Fib; Bronchitis; CHF; mitral valve prolapse; wg ROS: 21:29 Constitutional: Negative for fever, chills, and weight loss, Eyes: Negative for injury, taty pain, redness, and discharge, ENT: Negative for injury, pain, and discharge, Neck: Negative for injury, pain, and swelling, Cardiovascular: Negative for chest pain, palpitations, and edema, Respiratory: Negative for shortness of breath, cough, wheezing, and pleuritic chest pain, Abdomen/GI: Negative for abdominal pain, nausea, vomiting, diarrhea, and constipation, : Negative for injury, bleeding, discharge, and swelling, Skin: Negative for injury, rash, and discoloration, Neuro: Negative for headache, weakness, numbness, tingling, and seizure, Psych: Negative for depression, anxiety, suicide ideation, homicidal ideation, and hallucinations, Allergy/Immunology: Negative for hives, rash, and allergies, Endocrine: Negative for neck swelling, polydipsia, polyuria, polyphagia, and marked weight changes, Hematologic/Lymphatic: Negative for swollen nodes, abnormal bleeding, and unusual bruising. 21:29 Back: Positive for decreased range of motion, pain with movement. 21:29 MS/extremity: Positive for contusion, of the right knee. Exam: 21:29 Constitutional: This is a well developed, well nourished patient who is awake, alert, taty and in no acute distress. Head/Face: Normocephalic, atraumatic. Eyes: Pupils equal round and reactive to light, extra-ocular motions intact. Lids and lashes normal. Conjunctiva and sclera are non-icteric and not injected. Cornea within normal limits. Periorbital areas with no swelling, redness, or edema. ENT: Nares patent. No nasal discharge, no septal abnormalities noted. Tympanic membranes are normal and external auditory canals are clear. Oropharynx with no redness, swelling, or masses, exudates, or evidence of obstruction, uvula midline. Mucous membranes moist. Neck: Trachea midline, no thyromegaly or masses palpated, and no cervical lymphadenopathy. Supple, full range of motion without nuchal rigidity, or vertebral point tenderness. No Meningismus. Chest/axilla: Normal chest wall appearance and motion. Nontender with no deformity. No lesions are appreciated. Cardiovascular: Regular rate and rhythm with a normal S1 and S2. No gallops, murmurs, or rubs. Normal PMI, no JVD. No pulse deficits. Respiratory: Lungs have equal breath sounds bilaterally, clear to auscultation and percussion. No rales, rhonchi or wheezes noted. No increased work of breathing, no retractions or nasal flaring. Abdomen/GI: Soft, non-tender, with normal bowel sounds. No distension or tympany. No guarding or rebound. No evidence of tenderness throughout. Back: No spinal tenderness. No costovertebral tenderness. Full range of motion. Skin: Warm, dry with normal turgor. Normal color with no rashes, no lesions, and no evidence of cellulitis. Neuro: Awake and alert, GCS 15, oriented to person, place, time, and situation. Cranial nerves II-XII grossly intact. Motor strength 5/5 in all extremities. Sensory grossly intact. Cerebellar exam normal. Normal gait. Psych: Awake, alert, with orientation to person, place and time. Behavior, mood, and affect are within normal limits. 21:29 Musculoskeletal/extremity: ROM: limited active range of motion due to pain, limited passive range of motion due to pain, Circulation is intact in all extremities. Sensation intact. Compartment Syndrome exam of affected extremity: is normal. DVT Exam: no swelling, negative Homans' sign noted on exam, no appreciated bluish discoloration, no erythema, no increased warmth, pain, tenderness. Vital Signs: 20:58 BP 121 / 74; Pulse 88; Resp 20; Temp 98.9; Pulse Ox 98% on R/A; Weight 61.23 kg; Height wg 4 ft. 11 in. (149.86 cm); Pain 8/10; 22:13 BP 120 / 72; Pulse 80; Resp 15; Temp 98.7; Pulse Ox 100% on R/A; ch4 20:58 Body Mass Index 27.27 (61.23 kg, 149.86 cm) Kvng Coma Score: 20:58 Eye Response: spontaneous(4). Verbal Response: oriented(5). Motor Response: obeys commands(6). Total: 15. Trauma Score (Adult): 20:58 Eye Response: spontaneous(1); Verbal Response: oriented(1); Motor Response: obeys commands(2); Systolic BP: > 89 mm Hg(4); Respiratory Rate: 10 to 29 per min(4); [place] Score: 15; Trauma Score: 12 MDM: 21:19 Patient medically screened. taty 21:30 Differential diagnosis: chronic back pain, Fatigue Fracture ruptured disc, sprain. taty Differential diagnosis: contusion, sprain, strain. Data reviewed: vital signs, nurses notes, radiologic studies, plain films. 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 Counseling: I had a detailed discussion with the patient and/or guardian regarding: the historical points, exam findings, and any diagnostic results supporting the discharge/admit diagnosis, lab results, radiology results. 21:32 Test interpretation: by ED physician or midlevel provider: plain radiologic studies. [facility] 06/09 21:28 Order name: Lumbar Spine (3 Views) XRAY [facility] Administered Medications: 21:33 Drug: [place] (HYDROcodone-acetaminophen) 10 mg-325 mg 1 tabs Route: PO; ch4 21:33 Drug: Valium (diazepam) 5 mg Route: PO; ch4 Disposition Summary: 06/09/21 22:05 Discharge Ordered Location: Home [facility] Problem: new taty Symptoms: have improved taty Condition: Stable taty Diagnosis - Fall on same level, unspecified taty - Low back pain taty - Sciatica, right side taty Followup: taty - With: Private Physician - When: 2 - 3 days - Reason: Recheck today's complaints, Continuance of care, Re-evaluation by your physician Discharge Instructions: - Discharge Summary Sheet taty - Acute Back Pain, Adult taty - Musculoskeletal Pain taty - Sciatica taty - Sciatica, [id number] taty - Radicular Pain taty Forms: - Medication Reconciliation Form [facility] - Thank You Letter taty - Antibiotic Education taty - Prescription Opioid Use [facility] Prescriptions: - Medrol (Juliocesar) 4 mg Oral Tablets, Dose Pack - take 1 tablet by ORAL route as directed - follow package instructions; 1 taty packet; Refills: 0, Product Selection Permitted - Cyclobenzaprine 5 mg Oral Tablet - take 1 tablet by ORAL route 3 times per day As needed; 15 tablet; Refills: 0, taty Product Selection Permitted Signatures: Dispatcher [employer] Caio Marques MD MD cha Herman, Christina, RN RN Slick Snider RN wg
[2021-06-09 23:38] VITALS: BP 120/72; TEMP 98.7; O2SAT 100
--- NOTE | 2021-06-10 08:28 | RAD REPORT ---
EXAM DESCRIPTION: RAD - Lumbar Spine 3 Views - 06/09/2021 10:03 pm CLINICAL HISTORY: PAIN COMPARISON: July 2010 FINDINGS: A three-view lumbar spine examination was performed. Lumbar bodies are normal in height and alignment. No fracture or acute bony process seen. No disc spa ce narrowing. No other significant findings. No pars defects identified. IMPRESSION: Negative Lumbar Spine examination for acute or significant finding.
== END 2021-06-09 22:33 | disposition home or self-care (01) ==
LOC: ER 20:34
DX: M54.31 Sciatica, right side (principal); W18.30XA Fall on same level, unspecified, initial encounter; Y93.01 Activity, walking, marching and hiking; Z88.2 Allergy status to sulfonamides; Z88.5 Allergy status to narcotic agent; Z88.6 Allergy status to analgesic agent; Z91.040 Latex allergy status; Z91.048 Other nonmedicinal substance allergy status
CPT/HCPCS: 72100; 99283

== ENCOUNTER 2021-07-03 21:36 | Emergency (ER) | payer OTHER ==
[2021-07-03 22:42] LABS: Absolute Lymphocytes (CBC) 2.3 K/uL (0.7-4.9); Basophils % 1.1 % (0-1.3); Hematocrit 38.9 % (36.0-45.0); Lymphocytes % 29.7 % (15.3-44.8); MPV 8.4 fL (7.6-11.3); RBC Red Blood Cell Count 4.52 M/uL (3.86-4.86)
[2021-07-03 22:45] LABS: Protime INR 0.99
[2021-07-03 23:06] LABS: ALT/SGPT 27 U/L (12-78); AST/SGOT 18 U/L (15-37); Albumin 3.7 g/dL (3.4-5.0); Alkaline Phosphatase 105 U/L (45-117); BUN Blood Urea Nitrogen 12 mg/dL (7-18); Bicarbonate 29 mmol/L (21-32); Bilirubin Direct < 0.1 mg/dL (0-0.2); Bilirubin Total 0.2 mg/dL (0.2-1.0); Glucose Level 101 mg/dL (74-106); Magnesium 2.6 mg/dL (1.8-2.4); NT PRO-BNP 19 pg/mL (<125); Potassium 3.5 mmol/L (3.5-5.1); Protein, Total 7.5 g/dL (6.4-8.2); Sodium Level 143 mmol/L (136-145); Troponin (Emerg Dept Use Only) < 0.02 ng/mL (0.0-0.045)
--- NOTE | 2021-07-03 23:52 | EDPHYS ---
Physician Documentation [facility] Name: Jenni Draper Age: 41 yrs Sex: Female : 1980 Arrival Date: 07/03/2021 Time: 21:42 Bed 17 Private MD: WILLY Physician Ciao Aceves HPI: 07/03 23:47 This 41 yrs old Female presents to ER via Wheelchair with complaints of taty Shortness Of Breath. 23:47 The patient has shortness of breath at rest. Onset: The symptoms/episode began/occurred taty just prior to arrival. Duration: The symptoms are continuous, and are steadily getting worse. The patient's shortness of breath is aggravated by nothing, is alleviated by nothing. Associated signs and symptoms: Pertinent positives: chest pain, non-productive cough. Severity of symptoms: At their worst the symptoms were. The patient has experienced similar episodes in the past, multiple times. 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 N/A - Hysterectomy lp1 Historical: - Allergies: 21:59 Adhesives; lp1 21:59 Aspirin; lp1 21:59 Bactrim; lp1 21:59 Benadryl; lp1 21:59 cefixime; lp1 21:59 Cipro IV; lp1 21:59 Clindamycin; lp1 21:59 coconut oil; lp1 21:59 Demerol; lp1 21:59 Detrol; lp1 21:59 Diltiazem; lp1 21:59 Doxycycline; lp1 21:59 FISH PRODUCT DERIVATIVES; lp1 21:59 GABAPENTIN; lp1 21:59 Iodine; lp1 21:59 ivabradine; lp1 21:59 Latex, Natural Rubber; lp1 21:59 Levofloxacin; lp1 21:59 Morphine; lp1 21:59 PENICILLINS; lp1 21:59 quetiapine; lp1 21:59 Seroquel; lp1 21:59 Sulfa (Sulfonamide Antibiotics); lp1 21:59 Suprax; lp1 21:59 tolterodine; lp1 21:59 tramadol; lp1 - Home Meds: 22:15 alprazolam 0.25 mg Oral tab daily [Active]; benzonatate 100 mg oral cap 1 cap 3 times lp1 per day [Active]; Breo Ellipta inhalation [Active]; buspirone 15 mg Oral tab 1 tab 2 times per day [Active]; Coreg 25 mg oral tab 2 times per day [Active]; digoxin 125 mcg (0.125 mg) oral tab once daily [Active]; Effexor XR 150 mg oral cp24 once daily [Active]; Eliquis 5 mg oral tab 2 times per day [Active]; esomeprazole magnesium 20 mg oral cpDR 1 cap once daily [Active]; famotidine 20 mg Oral tab nightly [Active]; furosemide 10 mg Oral tab Q2days [Active]; Keppra 1,000 mg oral tab every 12 hours [Active]; pregabalin 50 mg Oral cap twice a day [Active]; ProAir HFA 90 mcg/actuation inhalation HFAA 2 puffs every 6 hours [Active]; Albuterol Inhl [Active]; rosuvastatin 5 mg oral tab 1 tab once daily [Active]; Spiriva with HandiHaler inhalation [Active]; Vraylar 1.5 mg oral cap 2 caps nightly [Active]; - PMHx: 21:59 Anxiety; Asthma; Atrial Fib; Bipolar disorder; Bronchitis; CHF; mitral valve prolapse; lp1 - PSHx: 21:59 Cholecystectomy; hysterectomy; left shoulder; right hand; lp1 - Immunization history:: Adult Immunizations up to date. - Social history:: Smoking status: Patient denies any tobacco usage or history of. - Family history:: not pertinent. ROS: 23:47 Constitutional: Negative for fever, chills, and weight loss, Eyes: Negative for injury, taty pain, redness, and discharge, ENT: Negative for injury, pain, and discharge, Neck: Negative for injury, pain, and swelling, Abdomen/GI: Negative for abdominal pain, nausea, vomiting, diarrhea, and constipation, Back: Negative for injury and pain, : Negative for injury, bleeding, discharge, and swelling, MS/Extremity: Negative for injury and deformity, Skin: Negative for injury, rash, and discoloration, Neuro: Negative for headache, weakness, numbness, tingling, and seizure, Psych: Negative for depression, anxiety, suicide ideation, homicidal ideation, and hallucinations, Allergy/Immunology: Negative for hives, rash, and allergies, Endocrine: Negative for neck swelling, polydipsia, polyuria, polyphagia, and marked weight changes, Hematologic/Lymphatic: Negative for swollen nodes, abnormal bleeding, and unusual bruising. 23:47 Cardiovascular: Positive for chest pain. 23:47 Respiratory: Positive for cough, shortness of breath, at rest. Exam: 23:47 Constitutional: This is a well developed, well nourished patient who is awake, alert, taty and in no acute distress. Head/Face: Normocephalic, atraumatic. Eyes: Pupils equal round and reactive to light, extra-ocular motions intact. Lids and lashes normal. Conjunctiva and sclera are non-icteric and not injected. Cornea within normal limits. Periorbital areas with no swelling, redness, or edema. ENT: Nares patent. No nasal discharge, no septal abnormalities noted. Tympanic membranes are normal and external auditory canals are clear. Oropharynx with no redness, swelling, or masses, exudates, or evidence of obstruction, uvula midline. Mucous membranes moist. Neck: Trachea midline, no thyromegaly or masses palpated, and no cervical lymphadenopathy. Supple, full range of motion without nuchal rigidity, or vertebral point tenderness. No Meningismus. Chest/axilla: Normal chest wall appearance and motion. Nontender with no deformity. No lesions are appreciated. Cardiovascular: Regular rate and rhythm with a normal S1 and S2. No gallops, murmurs, or rubs. Normal PMI, no JVD. No pulse deficits. Respiratory: Lungs have equal breath sounds bilaterally, clear to auscultation and percussion. No rales, rhonchi or wheezes noted. No increased work of breathing, no retractions or nasal flaring. Abdomen/GI: Soft, non-tender, with normal bowel sounds. No distension or tympany. No guarding or rebound. No evidence of tenderness throughout. Back: No spinal tenderness. No costovertebral tenderness. Full range of motion. Skin: Warm, dry with normal turgor. Normal color with no rashes, no lesions, and no evidence of cellulitis. MS/ Extremity: Pulses equal, no cyanosis. Neurovascular intact. Full, normal range of motion. Neuro: Awake and alert, GCS 15, oriented to person, place, time, and situation. Cranial nerves II-XII grossly intact. Motor strength 5/5 in all extremities. Sensory grossly intact. Cerebellar exam normal. Normal gait. Psych: Awake, alert, with orientation to person, place and time. Behavior, mood, and affect are within normal limits. 23:47 Musculoskeletal/extremity: ROM: intact in all extremities, full active range of motion, full passive range of motion, Circulation is intact in all extremities. Sensation intact. Compartment Syndrome exam of affected extremity: is normal. DVT Exam: No signs of deep vein thrombosis. no pain, no swelling, no tenderness, negative Homans' sign noted on exam, no appreciated bluish discoloration, no erythema, no increased warmth. 23:53 ECG was reviewed by the Attending Physician. [facility] 07/04 00:10 ECG was reviewed by the Attending Physician. [facility] Vital Signs: 07/03 21:57 BP 119 / 87; Pulse 102; Resp 18; Temp 98.5(O); Pulse Ox 99% on R/A; Weight 61.23 kg lp1 (R); Height 4 ft. 11 in. (149.86 cm); Pain 8/10; 22:54 BP 119 / 87; Pulse 98; Resp 18; Pulse Ox 99% on R/A; Pain 8/10; wg 07/04 01:15 BP 121 / 80; Pulse 84; Resp 18; Pulse Ox 99% ; Pain 1/10; wg 03:24 BP 126 / 77; Pulse 88; Resp 18; Pulse Ox 99% on R/A; Pain 6/10; wg 07/03 21:57 Body Mass Index 27.27 (61.23 kg, 149.86 cm) lp1 MDM: 07/03 22:08 Patient medically screened. [facility] 23:49 Differential diagnosis: Anxiety Reaction Bronchitis CHF exacerbation, pulmonary edema, taty Pulmonary Embolism reactive airway disease, Unstable Angina. Antibiotic administration: Not indicated, the patient does not have an appreciated infiltrate. The patient's Wells Deep Vein Thrombosis Score was calculated as follows: Total Score: 0-2 Pts- Low Risk. The patient's pulmonary embolism risk score was calculated as follows: Total Score: 0-2 points. This patient was found to be at low risk for a pulmonary embolism by using the Well's assessment criteria. Immunization status:. Data reviewed: vital signs, nurses notes, lab test result(s), EKG, radiologic studies, CT scan, plain films. Data interpreted: clinical research monitor: rate is 98 beats/min, rhythm is regular, with no ectopy, Pulse oximetry: on room air is 99 %. Test interpretation: by ED physician or midlevel provider: ECG, plain radiologic studies. Counseling: I had a detailed discussion with the patient and/or guardian regarding: the historical points, exam findings, and any diagnostic results supporting the discharge/admit diagnosis, the presence of at least one elevated blood pressure reading (>120/80) during this emergency department visit, lab results, the need for further work-up and treatment in the hospital. 07/03 22:18 Order name: Basic Metabolic Panel; Complete Time: 23:18 [facility] 07/03 22:18 Order name: CBC with Diff; Complete Time: 23:18 [facility] 07/03 22:18 Order name: LFT's; Complete Time: 23:18 [facility] 07/03 22:18 Order name: Magnesium; Complete Time: 23:18 [facility] 07/03 22:18 Order name: NT PRO-BNP; Complete Time: 23:18 [facility] 07/03 22:18 Order name: PT-INR; Complete Time: 23:18 [facility] 07/03 22:18 Order name: Troponin (emerg Dept Use Only); Complete Time: 23:18 [facility] 07/03 22:18 Order name: XRAY Chest (1 view) [facility] 07/03 23:18 Order name: Digoxin; Complete Time: 01:00 [facility] 07/04 02:44 Order name: SARS-COV-2 RT PCR [facility] 07/03 22:18 Order name: EKG; Complete Time: 22:19 [facility] 07/03 22:18 Order name: Cardiac monitoring; Complete Time: 22:35 [facility] 07/03 22:18 Order name: EKG - Nurse/Tech; Complete Time: 22:36 [facility] 07/03 22:18 Order name: IV Saline Lock; Complete Time: 22:36 [facility] 07/03 22:18 Order name: Labs collected and sent; Complete Time: 22:36 [facility] 07/03 22:18 Order name: O2 Per Protocol; Complete Time: 22:36 [facility] 07/03 22:18 Order name: O2 Sat Monitoring; Complete Time: 22:36 [facility] 07/03 23:50 Order name: EKG - Nurse/Tech; Complete Time: 01:06 em EC:53 Rate is 89 beats/min. Rhythm is regular. QRS [place] is Normal. AL interval is normal. QRS taty interval is normal. QT interval is normal. No Q waves. T waves are Normal. No ST changes noted. Clinical impression: NSR w/ Non-specific ST/T Changes and No evidence of ischemia. Interpreted by me. Reviewed by me. 07/04 00:10 Rate is 106 beats/min. Rhythm is regular. QRS [place] is Normal. AL interval is normal. taty QRS interval is normal. QT interval is normal. No Q waves. T waves are Normal. No ST changes noted. Clinical impression: PSVT. Interpreted by me. Reviewed by me. Administered Medications: 07/03 23:54 Drug: Zofran (Ondansetron) 4 mg Route: IVP; Infused Over: 2 mins; Site: right forearm; wg 23:55 Drug: Eliquis (apixaban) 5 mg Route: PO; wg 23:55 Drug: Dilaudid (HYDROmorphone) 1 mg Route: IVP; Infused Over: 2 mins; Site: right hand; wg 07/04 01:39 Drug: Digoxin 0.25 mg Route: IVP; Site: right forearm; mr2 03:25 Follow up: Response: No adverse reaction 01:39 Drug: Coreg (carvedilol) 25 mg Route: PO; mr2 03:25 Follow up: Response: No adverse reaction 01:39 Drug: SOLU-Medrol (methylPrednisoLONE) 125 mg Route: IVP; Site: right forearm; mr2 03:25 Follow up: Response: No adverse reaction 01:52 Drug: Xopenex (levalbuterol) 1.25 mg Route: Inhalation; mr2 Disposition Summary: 07/04/21 01:12 Transfer Ordered Transfer Location: [facility] taty Reason: Higher level of care taty Condition: Fair(07/04/21 01:12) taty Problem: new(07/04/21 01:12) taty Symptoms: have improved(07/04/21 01:12) taty Accepting Physician: to [facility] paco(07/04/21 04:27) wg Diagnosis - Bronchitis, not specified as acute or chronic(07/04/21 01:12) taty - Chest pain, unspecified(07/04/21 01:12) taty - Dyspnea(07/04/21 01:12) taty - Ventricular premature depolarization - bigemy(07/04/21 01:12) taty Forms: - Medication Reconciliation Form taty - SBAR form taty Signatures: Dispatcher [employer] EDMS Caio Aceves MD MD cha Munoz, Edgar, RN RN em Mayi Rodriguez, RN RN lp1 Slick Escobar RN Tam Swanson RN RN mr2 Corrections: (The following items were deleted from the chart) 01:06 07/03 23:47 CORONAVIRUS+MR.LAB.BRZ ordered. EDMS EDMS 07/04 01:07/03 23:51 Observation [facility] 07/04 01:07/03 23:51 BaidoOctavio mares [facility] 07/04 01:07/03 23:51 Telemetry/MedSurg (observation) [facility] 07/04 01:07/03 23:51 Fair [facility] 07/04 01:07/03 23:51 new [facility] 07/04 01:07/03 23:51 have improved [facility] 07/04 01:09 07/03 23:51 Standard [facility] 07/04 01:09 07/03 23:51 [facility] 07/04 01:07/03 23:51 Chest pain, unspecified [facility] 07/04 01:09 07/03 23:51 Palpitations [facility] 07/04 01:09 07/03 23:51 Dyspnea [facility] 07/04 01:09 00:11 Ventricular premature depolarization - BIGEMEY [facility] 00:12 Bronchitis, not specified as acute or chronic [facility] 02:44 07/03 23:47 CORONAVIRUS ordered. EDMS EDMS 07/04 04:27 01:12 to [facility]
--- NOTE | 2021-07-03 23:52 | ER ---
Nurse's Notes [facility] Name: Jenni Draper Age: 41 yrs Sex: Female : 1980 Arrival Date: 07/03/2021 Time: 21:42 Bed 17 Private MD: Diagnosis: Bronchitis, not specified as acute or chronic;Chest pain, unspecified;Dyspnea;Ventricular premature depolarization-bigemy Presentation: 07/03 21:57 Chief complaint: Patient states: Stabbing chest pain, shortness of breath, lightheaded lp1 that began suddenly at 1900 today; Reports progressive cough, hx of chronic bronchitis. Coronavirus screen: cough unrelated to allergies, shortness of breath, sore throat. Ebola Screen: No symptoms or risks identified at this time. Initial Sepsis Screen: Does the patient meet any 2 criteria? No. Patient's initial sepsis screen is negative. Does the patient have a suspected source of infection? No. Patient's initial sepsis screen is negative. Risk Assessment: Do you want to hurt yourself or someone else? Patient reports no desire to harm self or others. Onset of symptoms was July 03, 2021 at 19:00. 21:57 Method Of Arrival: Wheelchair lp1 21:57 Acuity: LYUBOV 3 lp1 Triage Assessment: 22:05 General: Appears in no apparent distress. Behavior is calm, cooperative. Pain: Denies cw2 pain. Respiratory: Reports shortness of breath at rest cough that is non-productive, Onset: The symptoms/episode began/occurred gradually, the patient has mild shortness of breath. GI: No deficits noted. : No deficits noted. Derm: No deficits noted. KEYPUNCHER: 22:02 LMP N/A - Hysterectomy lp1 Historical: - Allergies: 21:59 Adhesives; lp1 21:59 Aspirin; lp1 21:59 Bactrim; lp1 21:59 Benadryl; lp1 21:59 cefixime; lp1 21:59 Cipro IV; lp1 21:59 Clindamycin; lp1 21:59 coconut oil; lp1 21:59 Demerol; lp1 21:59 Detrol; lp1 21:59 Diltiazem; lp1 21:59 Doxycycline; lp1 21:59 FISH PRODUCT DERIVATIVES; lp1 21:59 GABAPENTIN; lp1 21:59 Iodine; lp1 21:59 ivabradine; lp1 21:59 Latex, Natural Rubber; lp1 21:59 Levofloxacin; lp1 21:59 Morphine; lp1 21:59 PENICILLINS; lp1 21:59 quetiapine; lp1 21:59 Seroquel; lp1 21:59 Sulfa (Sulfonamide Antibiotics); lp1 21:59 Suprax; lp1 21:59 tolterodine; lp1 21:59 tramadol; lp1 - Home Meds: 22:15 alprazolam 0.25 mg Oral tab daily [Active]; benzonatate 100 mg oral cap 1 cap 3 times lp1 per day [Active]; Breo Ellipta inhalation [Active]; buspirone 15 mg Oral tab 1 tab 2 times per day [Active]; Coreg 25 mg oral tab 2 times per day [Active]; digoxin 125 mcg (0.125 mg) oral tab once daily [Active]; Effexor XR 150 mg oral cp24 once daily [Active]; Eliquis 5 mg oral tab 2 times per day [Active]; esomeprazole magnesium 20 mg oral cpDR 1 cap once daily [Active]; famotidine 20 mg Oral tab nightly [Active]; furosemide 10 mg Oral tab Q2days [Active]; Keppra 1,000 mg oral tab every 12 hours [Active]; pregabalin 50 mg Oral cap twice a day [Active]; ProAir HFA 90 mcg/actuation inhalation HFAA 2 puffs every 6 hours [Active]; Albuterol Inhl [Active]; rosuvastatin 5 mg oral tab 1 tab once daily [Active]; Spiriva with HandiHaler inhalation [Active]; Vraylar 1.5 mg oral cap 2 caps nightly [Active]; - PMHx: 21:59 Anxiety; Asthma; Atrial Fib; Bipolar disorder; Bronchitis; CHF; mitral valve prolapse; lp1 - PSHx: 21:59 Cholecystectomy; hysterectomy; left shoulder; right hand; lp1 - Immunization history:: Adult Immunizations up to date. - Social history:: Smoking status: Patient denies any tobacco usage or history of. - Family history:: not pertinent. Screenin:02 Abuse screen: Denies threats or abuse. Denies injuries from another. Nutritional lp1 screening: No deficits noted. Tuberculosis screening: No symptoms or risk factors identified. 22:54 Fall Risk IV access (20 points). Gait- Weak (10 pts.). wg Assessment: 22:06 General: Appears in no apparent distress. Behavior is calm, cooperative. cw2 Cardiovascular: No deficits noted. Rhythm is sinus rhythm. Respiratory: Airway is patent Respiratory effort is even, unlabored. GI: No deficits noted. : No deficits noted. 22:53 Reassessment: EKG completed. Pt now c/o mid-sternal non-radiating chest pain 05/04. MD gan made aware. Respiratory: No deficits noted. Reports cough that is non-productive, Breath sounds are clear. 07/04 01:20 Reassessment: Patient appears in no apparent distress at this time. Pt states her abd wg pain and pain in her rectum has subsided. Pt states her abdomen is starting to gurgle. Patient states feeling better. 03:24 Reassessment: Patient appears in no apparent distress at this time. No changes from wg previously documented assessment. Patient is alert, oriented x 3, equal unlabored respirations, skin warm/dry/pink. Patient states feeling better. 04:26 Reassessment: Report called to [facility] RN Mini and report given to Pharmacy Delivery Driver at bedside.wg Vital Signs: 07/03 21:57 BP 119 / 87; Pulse 102; Resp 18; Temp 98.5(O); Pulse Ox 99% on R/A; Weight 61.23 kg lp1 (R); Height 4 ft. 11 in. (149.86 cm); Pain 8/10; 22:54 BP 119 / 87; Pulse 98; Resp 18; Pulse Ox 99% on R/A; Pain 8/10; wg 07/04 01:15 BP 121 / 80; Pulse 84; Resp 18; Pulse Ox 99% ; Pain 1/10; wg 03:24 BP 126 / 77; Pulse 88; Resp 18; Pulse Ox 99% on R/A; Pain 6/10; wg 07/03 21:57 Body Mass Index 27.27 (61.23 kg, 149.86 cm) lp1 Vitals: 07/03 22:54 Cardiac Rhythm Assessment Regular Sinus rhythm. wg ED Course: 21:42 Patient arrived in ED. 21:58 Slick Escobar, RN is Primary Nurse. wg 21:59 Triage completed. lp1 22:02 Arm band placed on. lp1 22:08 Caio Aceves MD is Attending Physician. taty 22:08 No provider procedures requiring assistance completed. cw2 22:17 Inserted saline lock: 22 gauge in right forearm, using aseptic technique. Blood wg collected. 22:33 XRAY Chest (1 view) In Process Unspecified. EDMS 22:36 Basic Metabolic Panel Sent. wg 22:36 CBC with Diff Sent. wg 22:36 LFT's Sent. wg 22:36 Magnesium Sent. wg 22:36 NT PRO-BNP Sent. wg 22:36 PT-INR Sent. wg 22:36 Troponin (emerg Dept Use Only) Sent. wg 22:54 Patient has correct armband on for positive identification. Placed in gown. Bed in low wg position. Call light in reach. Side rails up X2. Adult w/ patient. electronics worker on. Pulse ox on. NIBP on. 22:54 Patient maintains SpO2 saturation greater than 95% on room air. wg 23:51 Octavio Roe is Hospitalizing Provider. taty Administered Medications: 23:54 Drug: Zofran (Ondansetron) 4 mg Route: IVP; Infused Over: 2 mins; Site: right forearm; wg 23:55 Drug: Eliquis (apixaban) 5 mg Route: PO; wg 23:55 Drug: Dilaudid (HYDROmorphone) 1 mg Route: IVP; Infused Over: 2 mins; Site: right hand; 07/04 01:39 Drug: Digoxin 0.25 mg Route: IVP; Site: right forearm; mr2 03:25 Follow up: Response: No adverse reaction 01:39 Drug: Coreg (carvedilol) 25 mg Route: PO; mr2 03:25 Follow up: Response: No adverse reaction 01:39 Drug: SOLU-Medrol (methylPrednisoLONE) 125 mg Route: IVP; Site: right forearm; mr2 03:25 Follow up: Response: No adverse reaction 01:52 Drug: Xopenex (levalbuterol) 1.25 mg Route: Inhalation; mr2 Outcome: 07/03 23:51 Decision to Hospitalize by Provider. [facility] 07/04 01:12 ER care complete, transfer ordered by . [facility] 04:25 Transferred by ground EMS to [facility], X-rays sent w/ wg patient. 04:25 Transferred Transfer form completed. :25 Condition: stable 04:27 Patient left the ED. malik Signatures: Dispatcher [employer] EDCaio Zhong MD MD cha Pena, Laura, RN RN lp1 Usha Miller Liam, RN wg Reynard, Mike, RN RN mr2 Mumtaz Chauhan RN RN cw2
[2021-07-04] MEDS ORDERED: APIXABAN 5 MG TABLET ONE (00:13)
[2021-07-04] MEDS ORDERED: ONDANSETRON 4 MG/2 ML VIAL ONE (00:14)
[2021-07-04] MEDS ORDERED: HYDROMORPHONE HCL 1 MG/ML INJ ONE (00:14)
[2021-07-04] MEDS ORDERED: carvediloL 6.25 MG TAB ONE (01:52)
[2021-07-04] MEDS ORDERED: METHYLPREDNISOLONE 125 MG INJ ONE (01:52)
[2021-07-04] MEDS ORDERED: DIGOXIN 0.25 MG/ML AMP ONE (01:52)
[2021-07-04] MEDS ORDERED: LEVALBUTEROL 1.25 MG/3 ML NEB ONE (01:58)
[2021-07-04 04:40] VITALS: O2SAT 99
[2021-07-04 04:41] VITALS: TEMP 98.5
[2021-07-04 04:44] VITALS: BP 126/77
--- NOTE | 2021-07-04 08:53 | RAD REPORT ---
EXAM DESCRIPTION: RAD - Chest Single View - 07/03/2021 10:34 pm CLINICAL HISTORY: Cough;Chest pain COMPARISON: Two view chest April 30 TECHNIQUE: AP portable chest image was obtained 07/03/2021 10:34 pm . FINDINGS: Lung volumes are low but clear. Right-sided pacemaker remains in place. Heart and vasculat ure are normal. No measurable pleural effusion and no pneumothorax. No acute bony abnormality seen. N o acute aortic findings suspected. IMPRESSION: No acute cardiopulmonary process. No significant change from comparison study.
--- NOTE | 2021-07-05 07:09 | EKG ---
Test Date: 2021-07-04 Test Time: 00:05:02 Truer Pinion And Wheel: VALERIA MEASUREMENT RESULTS: Intervals: Rate: 106 ND: 114 QRSD: 84 QT: 338 QTc: 448 [place]: P: 15 ND: 114 QRS: 21 T: 24 INTERPRETIVE STATEMENTS: Sinus tachycardia with frequent premature ventricular complexes in a pattern of bigeminy Otherwise normal ECG Compared to ECG 07/03/2021 22:51:45 Ventricular premature complex(es) now present Sinus rhythm no longer present Electronically Signed On 07-05-21 07:04:53 CDT by Nadeem Rajan
--- NOTE | 2021-07-05 07:09 | EKG ---
Test Date: 2021-07-04 Test Time: 00:05:53 Marine Equipment Sales Engineer: VALERIA MEASUREMENT RESULTS: Intervals: Rate: 104 [place]: 152 QRSD: 88 QT: 354 QTc: 465 [place]: P: 37 [place]: 152 QRS: 27 T: 39 INTERPRETIVE STATEMENTS: Sinus tachycardia Otherwise normal ECG Compared to ECG 07/04/2021 00:05:02 Ventricular premature complex(es) no longer present Electronically Signed On 07-05-21 07:04:52 CDT by Nadeem Rajan
== END 2021-07-04 04:27 | disposition short-term general hospital (02) ==
LOC: ER 21:36 → ERHOLD 07-04 00:31 → UNDOADMOB 07-04 00:31 → ER 07-04 04:27
DX: J40 Bronchitis, not specified as acute or chronic (principal); I49.3 Ventricular premature depolarization; F41.9 Anxiety disorder, unspecified; I48.91 Unspecified atrial fibrillation; J45.909 Unspecified asthma, uncomplicated; F31.9 Bipolar disorder, unspecified; I50.9 Heart failure, unspecified; I34.1 Nonrheumatic mitral (valve) prolapse; Z20.822 Contact with and (suspected) exposure to COVID-19; Z79.01 Long term (current) use of anticoagulants; Z79.899 Other long term (current) drug therapy; Z88.6 Allergy status to analgesic agent; Z88.3 Allergy status to other anti-infective agents; Z88.5 Allergy status to narcotic agent; Z88.0 Allergy status to penicillin; Z88.2 Allergy status to sulfonamides; Z88.8 Allergy status to other drugs, medicaments and biological substances; Z91.041 Radiographic dye allergy status; Z91.040 Latex allergy status; Z91.048 Other nonmedicinal substance allergy status; Z90.710 Acquired absence of both cervix and uterus; Z90.49 Acquired absence of other specified parts of digestive tract
CPT/HCPCS: 93005 ×3; 85025; 80048; 36415; 83735; 85610; 80162; 80076; 84484; 83880; 71045; 96375; 96374; 99285; U0003; J1160; J2930

== ENCOUNTER 2021-09-29 11:27 | Emergency (ER) | payer OTHER ==
--- OUTSIDE RECORDS SUMMARY | 2021-09-29 11:36 | XMS REPORT | Continuity of Care Document ---
:1980 Author Organization [facility] [place] t Address [address] [place] [address] Care Team Providers Name Role Phone MIMA VELAZQUEZ Primary Care Physician Unavailable ZAKIA VERA Attending Clinician Unavailable Shauna Boone Attending Clinician Unavailable Main SYKES Attending Clinician Unavailable ATANASOV, T Attending Clinician Unavailable NARANJO Attending Clinician Unavailable Naranjo DO Attending Clinician Donny LARSEN, K.H. Attending Clinician Ernst Hollins MD Attending Clinician Doctor Unassigned, Name Attending Clinician Unavailable Guy Attending Clinician Omari RALPH Attending Clinician Unavailable Antonio LARSEN, TMariia Attending Clinician Andrea Bolanos MD Attending Clinician Sho LARSEN Attending Clinician Zakia Vera MD Attending Clinician Unavailable Elie LANDEROS Attending Clinician Unavailable LEONOR Attending Clinician Unavailable LINETTE Attending Clinician Unavailable ZAKIA VERA Admitting Clinician Unavailable SHO Admitting Clinician Unavailable Elie LANDEROS Admitting Clinician Unavailable LEONOR Admitting Clinician Unavailable LINETTE Admitting Clinician Unavailable Payers Payer Name Policy Type Policy Number Effective Expiration Source Date Date GENERIC MEDICAID O [id number] 2011 00:00:00 [facility] [id number] 2011 MEDICAID 00:00:00 [facility] [id number] 2011 Met amarilys STAR+PLUS [id number] MEDICAIDMEDICAID 00:00:00 - Medica l [id number] 018-Present Problems Condition Condition Condition Status Onset Resolution Last Treating Co mments Source Name Details Category Date Date Treatment Clinician Date Elevated Elevated Disease Active Unive rs d-dimer d-dimer 03-25 ity of 00:00: [place] 00 [facility] Branch Left-sided Left-sided Disease Active [facility] weakness weakness 02-12 [facility] Received Received Disease Active [facility] tissue tissue 02-12 Lu - plasminoge plasminoge 00:00: Me dical n n 00 Center activator activator (t-PA) (t-PA) less than less than 24 hours 24 hours prior to prior to arrival arrival Acute Acute Disease Active [facility] ischemic ischemic 5-20 [facility] - stroke stroke 00:00: [facility] 00 Center Chest pain Chest pain Disease Active 2020-0 U nivers 4-20 ity of 00:00: [place] 00 Medical Branch Inappropri Inappropri Disease Active 2019- U nivers ate sinus ate sinus 1-04 ity of tachycardi tachycardi [place] [facility] Functional Functional Disease Active 2019- U nivers neurologic neurologic 8-18 it y of al symptom al symptom [place] disorder disorder 00 Medica l with with Branch weakness weakness or or paralysis paralysis Syncope Syncope Disease Active 2019- Univers 2-04 ity of 00:00: [place] 00 [facility] PVT PVT Disease Active 2019- Univers (paroxysma (paroxysma 2-04 it y of l l 00:00: [place] ventricula ventricula 00 Me dical r r Branch tachycardi tachycardi a) a) Digoxin Digoxin Disease Active Univers toxicity toxicity 2-04 ity of 00:00: [place] [facility] Atrial Atrial Disease Active Univers fibrillati fibrillati 2-04 it y of on on 00:00: [place] 00 [facility] Branch Dyspnea Dyspnea Disease Active 2019 Univers 2-01 ity of 00:00: [place] 00 [facility] Branch Seizure Seizure Disease Active 2018-09 Univers disorder disorder 2-01 ity of 00:00: [place] 00 Medical Branch Mitral Mitral Disease Active 2019 Univers valve valve 8-05 ity of regurgitat regurgitat 00:[place] 00 [facility] Excessive Excessive Disease Active Uni vers anticoagul anticoagul 8-05 it y of ation ation 00:00: [place] 00 Medical Branch Deep vein Deep vein Disease Active 2019 Uni vers thrombosis thrombosis 8-05 it y of of lower of lower 00:00: [place] extremity extremity 00 [facility] Branch Anxiety Anxiety Disease Active 2019- Univers disorder disorder 8-05 ity of 00:00: [place] 00 Medical Branch Asthma Asthma Disease Active 2019- Univers 8-05 ity of 00:00: [place] 00 Medical Branch E44.0 E44.0 Disease Active 2019- Univers Moderate Moderate 5-15 ity of protein protein 00:00: [place] calorie calorie 00 Medical malnutriti malnutriti Br anch on on Paresthesi Paresthesi Disease Active 2017-[address] a of left a of left 10-17 [facility] s - arm and arm and 00:00: Medical leg leg 00 Center Dysphagia Dysphagia Disease Active 2017-09 Uni vers 10-03 ity of 00:00: [place] 00 Medical Branch Iron Iron Disease Active 2017-09 Overview: Univer s deficiency deficiency 0-19 Formattin ity of anemia, anemia, 00:00: g of this [place] unspecifie unspecifie 00 note Me dical d iron d iron might be Branch deficiency deficiency different anemia anemia from the type type original. Added automatic ally from request for surgery [id number] Abdominal Abdominal Disease Active 2017-09 Overview: Univers pain, pain, 0-19 Formattin ity of unspecifie unspecifie 00:00: g of this [place] d d 00 note Medical abdominal abdominal might be Br anch location location different from the original. Added automatic ally from request for surgery [id number] Nausea and Nausea and Disease Active 2017-09 Overview : Univers vomiting, vomiting, 0-19 Formattin i ty of intractabi intractabi 00:00: g of this [place] lity of lity of 00 note Medical vomiting vomiting might be Bran ch not not different specified, specified, from the unspecifie unspecifie original. d vomiting d vomiting Added type type automatic ally from request for surgery [id number] Non-cardia Non-cardia Disease Active U nivsharath c chest c chest 04-27 ity of pain pain 00:00: [place] 00 Medical Branch Essential Essential Disease Active Uni vers hypertensi hypertensi 8 it y of on on 00:00: 00 Medical Branch Pacemaker Pacemaker Disease Active Uni vers 04-27 ity of 00:00: [place] 00 Medical Branch PAF PAF Disease Active Univers (paroxysma (paroxysma 04-27 it y of l atrial l atrial 00:00: [place] fibrillati fibrillati 00 Me dical on) on) Branch History of History of Disease Active 2016-09 U jayden cardiac cardiac 1 ity of pacemaker pac[place] 00:[place] situ 00 [facility] Tachycardi Tachycardi Disease Active U jayden a, a, 9- ity of unspecifie unspecifie 00:[place] [facility] Elevated Elevated Disease Active 2013-09 Unive rs liver liver 0-29 ity of enzymes enzymes 00:00: [place] 00 Medical Branch Pseudoseiz Pseudoseiz Disease Active U jayden ure ure 7-22 ity of 00:00: Medical Branch Left sided Left sided Disease Active U jayden numbness numbness 6-28 ity of 00:00: Medical Branch Prediabete Prediabete Disease Active 2012-09 U nivers s s 2-31 ity of 00:00: Medical Branch Loss of Loss of Disease Active 2012-09 Univers weight weight 2 ity of 00:00: Medical Branch Hypothyroi Hypothyroi Disease Active 2012-09 Overview : Univers dism dism Formattin ity of 00:00: g of this note Medical might be Branch different from the original. ICD10 Diagnosis Term Converting Technician Utility Hypoglycem Hypoglycem Disease Active 2012-09 Overview : Univers ia ia 10-21 Formattin ity of 00:00: g of this note Medical might be Branch different from the original. ICD10 Diagnosis Term Converting Technician Utility Cerebrovas Cerebrovas Disease Resolve 2021-02-12 2021-02-[address] cular cular d 00:00:00 11:42:08 [facility] - accident accident Medica l (CVA), (CVA), Center unspecifie unspecifie d d mechanism mechanism Allergies, Adverse Reactions, Alerts Allergy Allergy Status Severity Reaction(s) Onset Inactive Treating Comm ents Source Name Type Date Date Clinician Hydrocod Propensi Active Hives Univer s one ty to 9-10 ity of adverse 00:00: [place] reaction 00 Medical s Branch HYDROCOD DRUG Active Hives Univers ONE INGREDI 9-10 ity of 00:00: [place] [facility] Penicill DA Active SV [facility] ins 1-04 [place] 00:[facility]: d 00 [facility] Sulfa DA Active MO [facility] (Sulfona 1-04 [place] mide 00:00: d Antibiot [address] [facility]) Center Fish FA Active SV [facility] Containi 1-04 [place] ng 00:00: d Products 00 Medical Center iodine DA Active MO [facility] 1-04 [place] 00:00: d 00 Medical Center morphine DA Active SV [facility] 1-04 [place] 00:00: d 00 Medical Center aspirin DA Active SV 1-0 [facility] 1-04 [place] 00:00: d 00 Medical Center cephalex DA Active SV 1-0 [facility] in -04 [place] 00:00: d 00 Medical Center cefixime DA Active MO 1-0 [facility] -04 [place] 00:00: d 00 Medical Center doxycycl DA Active SV 2020-0 [facility] ine -04 [place] 00:00: d 00 [facility] Center clindamy DA Active MO 2020-0 [facility] stephan -04 [place] 00:00: d 00 Medical Center sulfamet DA Active MO 2020-0 [facility] hoxazole -04 [place] 00:00: d 00 Medical Center trimetho DA Active MO 2020-0 [facility] prim -04 [place] 00:00: d 00 [facility] Center ciproflo DA Active SV 2020-0 [facility] xacin - [place] 00:00: d 00 Medical Center adhesive DA Active SV 2020-0 [facility] tape -04 [place] 00:00: d 00 Medical Center tramadol DA Active SV 2020-0 [facility] -04 [place] 00:00: d 00 [facility] Center gabapent DA Active SV 2020-0 [facility] in - [place] 00:00: d 00 [facility] Center diltiaze DA Active SV 2020-0 [facility] m -04 [place] 00:00: d 00 [facility] Center diphenhy DA Active SV 2020-0 [facility] dramine - [place] 00:00: d 00 [facility] Center topirama DA Active SV 2020-0 [facility] te -04 [place] 00:00: d 00 Medical Center levoflox DA Active SV 2020-0 [facility] acin -04 [place] 00:00: d 00 [facility] Center quetiapi DA Active MO 1-0 [facility] ne -04 [place] 00:00: d 00 [facility] Center tolterod DA Active MO 2020-0 [facility] ine -04 [place] 00:00: d 00 Medical Center latex DA Active SV 1-0 [facility] -04 [place] 00:00: d 00 [facility] Center ivabradi DA Active MO 1-0 [facility] ne -04 [place] 00:00: d 00 Medical Center coconut FA Active MO 1-0 [facility] -04 [place] 00:00: d 00 [facility] Center Penicill DA Active SV ANAPHYLAXIS 2020-0 [facility] ins SHOCH 1-04 [place] 00:00: d 00 Medical Center Sulfa DA Active MO RASH 2020-0 [facility] (Sulfona 1-04 [place] mide 00:00: d Antibiot 00 Medical ics) Center Fish FA Active SV ANAPHYLAXIS 2020-0 [facility] Containi SHOCK - [place] ng 00:00: d Products 00 Medical Center iodine DA Active MO RASH 2020-0 [facility] 1-04 [place] 00:00: d 00 Medical Center morphine DA Active SV ANAPHYLAXIS 2020- [facility] SHOCK 09-28 [place] 00:00: d 00 Medical Center aspirin DA Active SV ANAPHYLAXIS 2020-0 [facility] SHOCK 09-28 [place] 00:00: d 00 Medical Center cephalex DA Active SV HIVES 2020-0 [facility] in - [place] 00:00: d 00 Medical Center cefixime DA Active MO HIVES 2020-0 [facility] -04 [place] 00:00: d 00 Medical Center doxycycl DA Active SV RASH 2020- [facility] ine 1-04 [place] 00:00: d 00 [facility] Center clindamy DA Active MO RASH 2020- [facility] stephan 1-04 [place] 00:00: d 00 [facility] Center sulfamet DA Active MO RASH 2020-0 [facility] hoxazole 1-04 [place] 00:00: d 00 Medical Ace trimetho DA Active MO RASH 2020-0 [facility] prim 1-04 [place] 00:00: d 00 [facility] Center ciproflo DA Active SV HIVES 2020-0 [facility] xacin 1-04 [place] 00:00: d 00 Medical Center adhesive DA Active SV BLISTERS 2020- [facility] tape 1-04 [place] 00:00: d 00 Medical Center tramadol DA Active SV HIVES 2020-0 [facility] 1-04 [place] 00:00: d 00 Medical Center gabapent DA Active SV RASH 2020-0 [facility] in -04 [place] 00:00: d 00 Medical Center diltiaze DA Active SV SHORTNESS OF 2020-0 HC A m BREATH - [place] 00:00: d 00 Medical Center diphenhy DA Active SV RASH 2020-0 [facility] dramine - [place] 00:00: d 00 Medical Center topirama DA Active SV HIVES/MEMORY HC A te LOSS - [place] 00:00: d 00 Medical Center levoflox DA Active SV HIVES [facility] acin 1-04 [place] 00:00: d 00 [facility] quetiapi DA Active MO RASH [facility] ne 1-04 [place] 00:00: d [facility] tolterod DA Active MO RASH [facility] ine 1-04 [place] 00:00: d 00 [facility] latex DA Active SV BLISTERS [facility] 1-04 [place] 00:00: d 00 [facility] ivabradi DA Active MO RASH [facility] ne 1-04 [place] 00:00: d 00 [facility] coconut FA Active MO RASH [facility] 1-04 [place] 00:00: d 00 [facility] Topirama Propensi Active Anaphylaxis 2019-0 M ethodi te ty to 9-16 st adverse 00:00: Hospita reaction 00 l s to drug Ivabradi Propensi Active Rash 2018-09: Meth jamie ne ty to 0-[address] adverse 00:00: passing Hospita reaction 00 out after l s to taking drug one dose of that medicine Diltiaze Propensi Active Shortness of 2018-09 Univers m Hcl ty to Breath 0-01 ity of adverse 00:00: [place] reaction Medical s Branch Ivabradi Propensi Active Rash 2018-09: Univ ers ne ty to 0-01 reports ity of adverse 00:00: passing [place] reaction 00 out after Medic al s taking Branch one dose of that medicine DILTIAZE DRUG Active SOB 2018-09 Univers M HCL INGREDI 0-01 ity of 00:00: [place] 00 Medical Branch IVABRADI DRUG Active Rash 2018-09 Univers NE INGREDI 0-01 ity of 00:00: [place] 00 [facility] Branch Diltiaze Propensi Active Shortness Of 0 Methodi m ty to Breath 9-05 st adverse 00:00: Hospita reaction 00 l s to drug Diltiaze Propensi Active Shortness of 2018-0 Univers m ty to Breath 9-05 ity of adverse 00:00: [place] reaction 00 Medical s Branch DILTIAZE DRUG Active Med SOB Univers M INGREDI 9-05 ity of 00:00: [place] 00 Medical Branch Cefixime Propensi Active Rash Univer s ty to 8-05 ity of adverse 00:00: [place] reaction 00 Medical s Branch Doxycycl Propensi Active Rash 2019-0 Univer s ine ty to 04-29 ity of adverse 00:00: [place] reaction 00 Medical s Branch Fish Propensi Active Anaphylaxis 2019-0 Family Uni vers Containi ty to 04-29 history ity of ng adverse 00:00: of [place] Products reaction 00 allergic Medi blane s reaction. Branch Cephalex Propensi Active Anaphylaxis 2019-0 M ethodi in ty to 04-29 st adverse 00:00: Hospita reaction 00 l s to drug FISH Drug Active High Anaphylaxis 2019-0 Unive rs CONTAINI Class 04-29 ity of NG 00:00: [place] PRODUCTS 00 Medical Branch DOXYCYCL DRUG Active Rash 2019-0 Univers INE INGREDI 04-29 ity of 00:00: [place] 00 Medical Branch CEFIXIME DRUG Active Low Rash 2019-0 Univers INGREDI 05 ity of 00:00: [place] 00 Medical Branch Doxycycl Propensi Active Rash 2019-0 Method i ine ty to 04-29 st adverse 00:00: Hospita reaction 00 l s to drug Levoflox Propensi Active Anaphylaxis 2019-0 M ethodi acin ty to 04-29 st adverse 00:00: Hospita reaction 00 l s to drug CEFIXIME Allergy Active Low Rash 2017-09 [facility] 10-17 00:00: 00 TRAMADOL Allergy Active Low Rash 2017-09 [facility] 10-17 00:00: 00 SULFAMET Allergy Active High Anaphylaxis 2017-09 [facility] HOXAZOLE 10-17 -TRIMETH 00:00: OPR[place] 00 GABAPENT Allergy Active High Sob 2017-09 [facility] IN 10-17 00:00: 00 IODINE Allergy Active High Rash 2017-09 [facility] AND 10-17 IODIDE 00:00: CONTAINI 00 NG PRODUCTS MORPHINE Allergy Active High Anaphylaxis 2017-09 [facility] 10-17 00:00: 00 PENICILL Allergy Active High Anaphylaxis 2017-09 [facility] INS 10-17 00:00: 00 DIPHENHY Allergy Active N\\T\\V 2017-09 [facility] DRAMINE 10-17 HCL 00:00: 00 CIPROFLO Allergy Active 2017-09 [facility] XACIN 10-17 00:00: 00 CODEINE Allergy Active 2017-09 [facility] 10-17 00:00: 00 Adhesive Propensi Active Rash 2017-09 Can use [facility] Tape ty to 10-17 papertape [facility] - adverse 00:00: . Medical reaction 00 Center s Sulfamet Propensi Active Anaphylaxis 2017-[address] hoxazole ty to 10-17 [facility] - -Trimeth adverse 00:00: Medical oprim reaction 00 Ace s Diphenhy Propensi Active Nausea And 2017-[address] dramine ty to Vomiting 10-17 [facility] - Hcl adverse 00:00: Medical reaction 00 Ace s Ciproflo Propensi Active 2017-[address] xacin ty to 10-17 aches. [facility] - adverse 00:00: Medical reaction 00 Ace s Clindamy Propensi Active Rash 2017-[address] stephan ty to 10-17 [facility] - adverse 00:00: Medical reaction 00 Ace s Tolterod Propensi Active Rash 2017-[address] ine ty to 10-17 [facility] - adverse 00:00: Medical reaction 00 Ace s Gabapent Propensi Active Shortness Of 2017-[address] in ty to Breath, Rash 10-17 Luke s - adverse 00:00: Medical reaction 00 Ace s Iodine Propensi Active Rash 2017-[address] And ty to 10-17 [facility] - Iodide adverse 00:00: Medical Containi reaction 00 [facility] s Products Latex Propensi Active Rash 2017-[address] ty to 10-17 [facility] - adverse 00:00: Medical reaction 00 Ace s Morphine Propensi Active Anaphylaxis 2017-[address] ty to 10-17 [facility] - adverse 00:00: Medical reaction 00 Ace s Penicill Propensi Active Anaphylaxis 2017-[address] ins ty to 10-17 [facility] - adverse 00:00: Medical reaction 00 Ace s Quetiapi Propensi Active 2017-[address] ne ty to 10-17 [facility] - adverse 00:00: Medical reaction 00 Ace s Sulfa Propensi Active Rash 2017-[address] (Sulfona ty to 10-17 [facility] - mide adverse 00:00: Medical Antibiot reaction 00 [facility]) s Cefixime Propensi Active Rash 2017-[address] ty to 10-17 [facility] - adverse 00:00: Medical reaction 00 Ace s Tramadol Propensi Active Rash 2017-[address] ty to 10-17 [facility] - adverse 00:00: Medical reaction 00 Ace s QUETIAPI Allergy Active 2017-09 [facility] NE 10-17 00:00: 00 Cefixime Propensi Active Rash 2017-09 Method i ty to 10-17 st adverse 00:00: Hospita reaction 00 l s to drug Sulfamet Propensi Active Rash 2017-09 Method i hoxazole ty to 10-17 st -Trimeth adverse 00:00: Hospita oprim reaction 00 l s to drug ADHESIVE Allergy Active Low Rash 2017-09 [facility] TAPE 10-17 00:00: 00 CLINDAMY Allergy Active Low Rash 2017-09 [facility] STEPHAN 10-17 00:00: 00 TOLTEROD Allergy Active Low Rash 2017-09 [facility] INE 10-17 00:00: 00 LATEX Allergy Active Low Rash 2017-09 [facility] 10-17 00:00: 00 SULFA Allergy Active Low Rash 2017-09 [facility] (SULFONA 10-17 MIDE 00:00: ANTIBIOT 00 ICS) Coconut Propensi Active Rash 2017-09 Univers ty to 1-10 ity of adverse 00:00: [place] reaction 00 Medical s Branch Seafood/ Propensi Active Swelling 2017-09 Univ ers Fish ty to 1-10 ity of adverse 00:00: [place] reaction 00 Medical s Branch COCONUT DRUG Active Hives 2017-09 Univers INGREDI 1-10 ity of 00:00: [place] 00 Medical Branch SEAFOOD/ Food Active Rash 2017-09 Univers FISH 1-10 ity of 00:00: [place] 00 Medical Branch Coconut Propensi Active Rash 2017-09 Methodi ty to 10-04 st adverse 00:00: Hospita reaction 00 l s to drug Coconut Propensi Active Rash 2017-09 Methodi Oil ty to 10-04 st adverse 00:00: Hospita reaction 00 l s to drug Other Propensi Active Swelling 2017-09 Family Method i ty to 10-[address] adverse 00:00: of Hospita reaction 00 allergic l s reaction. Diphenhy Propensi Active Hives Univer s dramine ty to 4-12 ity of Hcl adverse 00:00: [place] reaction 00 Medical s Branch Clindamy Propensi Active Rash 2017- Univer s stephan ty to 4-12 ity of adverse 00:00: [place] reaction 00 Medical s Branch Gabapent Propensi Active Rash Univer s in ty to 4-12 ity of adverse 00:00: [place] reaction 00 Medical s Branch Iodine Propensi Active Rash 2018-0 Univers ty to 4-12 ity of adverse 00:00: [place] reaction 00 Medical s Branch DIPHENHY DRUG Active Hives Univers DRAMINE INGREDI 4-12 ity of HCL 00:00: [place] 00 Medical Branch CLINDAMY DRUG Active Rash 2017- Univers STEPHAN INGREDI 4-12 ity of 00:00: Medical Branch GABAPENT DRUG Active Rash 2017- Univers IN INGREDI 4-12 ity of 00:00: [place] [facility] IODINE DRUG Active Rash 2018- Univers INGREDI 4-12 ity of 00:00: [place] [facility] Clindamy Propensi Active Rash 2017- Method i stephan ty to 01-04 st adverse 00:00: Hospita reaction 00 l s to drug Diphenhy Propensi Active Other (See Me thodi dramine ty to Comments) 01-04 st adverse 00:00: Hospita reaction 00 l s to drug Gabapent Propensi Active Shortness Of Methodi in ty to Breath 01-04 adverse 00:00: Hospita reaction 00 l s to drug Iodine Propensi Active Rash Methodi And ty to 01-04 st Iodide adverse 00:00: Hospita Containi reaction 00 l ng s to Products drug Morphine Propensi Active Anaphylaxis 2017- U nivers ty to 0-05 ity of adverse 00:00: [place] reaction 00 [facility] MORPHINE DRUG Active High Anaphylaxis 2016-09 Uni vers INGREDI 0-05 ity of 00:00: [facility] Morphine Propensi Active Anaphylaxis 2017- M ethodi ty to 005 st adverse 00:00: Hospita reaction 00 l s to drug Tramadol Propensi Active Unknown - Rash Uni vers ty to See comments 06-22 ity of adverse 00:00: [place] reaction 00 Medical s [place] TRAMADOL DRUG Active Unknown-Cmnt Un [place] INGREDI 06-22 ity of 00:00: [place] 00 Medical Branch Tramadol Propensi Active Rash 2017 Rash Rash Met hodi ty to 06-22 st adverse 00:00: Hospita reaction 00 l s to drug Ciproflo Propensi Active Other - See Muscle U nivers xacin ty to comments 04-20 aches ity of adverse 00:00: [place] reaction 00 Medical s Branch Quetiapi Propensi Active Rash 0 Univer s ne ty to 04-20 ity of Fumarate adverse 00:00: [place] reaction 00 Medical s Branch CIPROFLO DRUG Active Other-Cmnt 0 Univ ers XACIN INGREDI 04-20 ity of 00:00: [place] [facility] QUETIAPI DRUG Active Rash 2015-0 Univers NE INGREDI 04-20 ity of FUMARATE 00:00: [place] [facility] Quetiapi Propensi Active Rash 2015- confusion Met hodi ne ty to 04-20 st adverse 00:00: Hospita reaction 00 l s to drug Aluminum Propensi Active Anaphylaxis 2016-0 U nivers Aspirin ty to 01-18 ity of adverse 00:00: [place] reaction Medical s Branch Penicill Propensi Active Anaphylaxis 2015-0 U nivers in ty to 01-18 ity of adverse 00:00: [place] reaction Medical s Branch ALUMINUM DRUG Active High Anaphylaxis Uni vers ASPIRIN INGREDI 01-18 ity of 00:00: [place] [facility] PENICILL DRUG Active High Anaphylaxis 0 Uni vers IN INGREDI 01-18 ity of 00:00: [place] [facility] Adhesive Drug Active Rash 0 Univers Allergy 03-20 ity of 00:00: [place] 00 Medical Branch ADHESIVE Drug Active Low Rash 2013-0 Univers Class 6- ity of 00:00: [place] 00 Medical Branch Ciproflo Propensi Active Other (See 0 Muscle Me thodi xacin ty to Comments) 02-[address] adverse 00:00: le aches. Hospit a reaction 00 Muscle l s to aches drug Aspirin Propensi Active Anaphylaxis 0 Un [place] ty to 12-31 ity of adverse 00:00: [place] reaction 00 Medical s to Branch drug ASPIRIN DRUG Active High Anaphylaxis 0 Univ ers INGREDI 12-31 ity of 00:00: [place] 00 Medical Branch Adhesive Propensi Active Rash 2012-09 Can use Unive rs Tape-Cynthia ty to 10-20 papertape ity o f icones adverse 00:00: . [place] reaction Medical s Branch Tolterod Propensi Active Rash 2012-09 Univer s ine ty to 10-20 ity of Tartrate adverse 00:00: [place] reaction Medical s Branch Latex Propensi Active Rash 2012-09 "blisters Unive rs ty to 10-20 " ity of adverse 00:00: [place] reaction 00 Medical s Branch Penicill Propensi Active Anaphylaxis 2012-09 U nivers ins ty to 10-20 ity of adverse 00:00: [place] reaction 00 Medical s Branch Sulfa Propensi Active Rash 2012-09 Univers (Sulfona ty to 10-20 ity of mide adverse 00:00: [place] Antibiot reaction 00 Medica l ics) s Branch TOLTEROD DRUG Active Rash 2012-09 Univers INE INGREDI 10-20 ity of TARTRATE 00:00: [place] 00 Medical Branch LATEX DRUG Active Rash 2012-09 Univers INGREDI 10-20 ity of 00:00: [place] 00 Medical Branch PENICILL Drug Active Anaphylaxis 2012-09 Uni vers INS Class 10-20 ity of 00:00: [place] 00 Medical Branch ADHESIVE DRUG Active Low Rash 2012-09 Univers TAPE-CYNTHIA 10-20 ity of ICONES 00:00: [place] 00 Medical Branch SULFA Drug Active Low Rash 2012-09 Univers (SULFONA Class 10-20 ity of MIDE 00:00: [place] ANTIBIOT 00 Medical ICS) Branch Adhesive Propensi Active Rash 2012-09 Can use Metho di Tape-Cynthia ty to 10-[address] icones adverse 00:00: . Can use Hospit a reaction 00 papertape l s to . drug Latex Propensi Active Rash 2012-09 "blisters [...] Hospita reaction 00 l s to drug Social History Social Habit Start Date Stop Date Quantity Comments Source History SDOH Confucianism Alcohol Std Drinks Hospit al History SDOH Confucianism Alcohol Binge Hospital Exposure to Not sure University of SARS-CoV-2 (event) [place] [facility] Alcohol intake 2021-09-03 2021-09-03 Current University of 00:00:00 00:00:00 non-drinker of [facility] alcohol Branch (finding) Education 2021-03-25 2021-03-25 12 University of 00:00:00 00:00:00 [place] [facility] History [facility] 2019-10-29 2019-10-29 5 University o f Financial 00:00:00 00:00:00 [place] [facility] History [facility] Food 2019-10-29 2019-10-29 1 Univers ity of Worry 00:00:00 00:00:00 [place] [facility] History [facility] Food 2019-10-29 2019-10-29 1 Univers ity of Scarcity 00:00:00 00:00:00 [place] [facility] History [facility] 2019-10-29 2019-10-29 2 University o f Transport Med 00:00:00 00:00:00 [place] [facility] History [facility] 2019-10-29 2019-10-29 2 University o f Transport Non-Med 00:00:00 00:00:00 [facility] edical Branch History [facility] 2018-09-05 2018-09-05 1 [facility] Alcohol Frequency 00:00:00 00:00:00 [facility] Cigarettes smoked 2018-04-27 2018-04-27 Univers ity of current (pack per 00:00:00 00:00:00 [facility] ) - Reported Branch Cigarette 2018-04-27 2018-04-27 University of pack-years 00:00:00 00:00:00 [facility] Tobacco use and 2018-04-27 2018-04-27 Never used Universit y of exposure 00:00:00 00:00:00 [facility] Tobacco Comment 2018-04-27 2018-04-27 quit 16 years Univer sity of 00:00:00 00:00:00 ago [facility] History of tobacco 2003-05-09 Smoker Univer sity of use 00:00:00 [facility] Sex Assigned At [birth year] Universit y of 00:00:00 00:00:00 [facility] Smoking Status Start Date Stop Date Source Former smoker 2018-04-27 00:00:00 2018-04-27 00:00:00 Universi ty of [facility] Medications Ordered Filled Start Stop Current Ordering Indication Dosage Frequency Signature Comments Components Source Medication Medication Date Date Medication? Clinician (SIG) Name Name chlorphenir Yes [id number] 4mg Take 1 Univers amine 4 mg 1-05 tablet by ity of tablet 00:00: mouth [place] 00 every 6 Medical (six) Branch hours as needed for Allergies or Runny nose. calcium/mag Yes [id number] 1{each} Take 1 Univers nesium/zinc 1-05 Each by ity o f (CALCIUM-MA 00:00: mouth [place] GNESUIUM-ZI 00 daily. Medica l NC) Branch 333-133-5 mg Tab benzonatate Yes [id number] 100mg Take 1 Univers 100 mg 1-05 capsule by ity of capsule 00:00: mouth 3 [place] 00 (three) Medical times Branch daily as needed for Cough. vitamin 2021- Yes [id number] 1{tbl} Take 1 Univers D3-folic -05 02-05 tablet by ity o f acid 125 00:00: 05:59 mouth [place] mcg (5,000 00 :00 daily for Medi blane unit)-1 mg 30 days. Branc h Tab levETIRAcet 2020-09- Yes [id number] 750mg Take 1 Univers am (KEPPRA) 11-04 tablet by it y of 750 mg 00:00: 05:59 mouth at [place] tablet 00 :00 bedtime Medical for 65 Branch days. levETIRAcet 2020-09- Yes [id number] 750mg Take 1 Univers am (KEPPRA) 11-04 tablet by it y of 750 mg 00:00: 05:59 mouth at [place] tablet 00 :00 bedtime Medical for 65 Branch days. levETIRAcet 2020-09- Yes [id number] 750mg Take 1 Univers am (KEPPRA) 11-04 tablet by it y of 750 mg 00:00: 05:59 mouth at [place] tablet 00 :00 bedtime Medical for 65 Branch days. levETIRAcet 2020-09- Yes [id number] 750mg Take 1 Univers am (KEPPRA) 11-04 tablet by it y of 750 mg 00:00: 05:59 mouth at [place] tablet 00 :00 bedtime Medical for 65 Branch days. levETIRAcet 2020-09- Yes [id number] 750mg Take 1 Univers am (KEPPRA) 2-10 -14 tablet by it y of 750 mg 00:00: 05:59 mouth at [place] tablet 00 :00 bedtime Medical for 65 Branch days. levETIRAcet 2020-09- Yes [id number] 750mg Take 1 Univers am (KEPPRA) 2-10 -14 tablet by it y of 750 mg 00:00: 05:59 mouth at [place] tablet 00 :00 bedtime Medical for 65 Branch days. galcanezuma 2020-09- Yes [id number] 120mg inject 120 Univers b-gnlm 2-10 01-10 mg under ity of prefilled 00:00: 05:59 the skin [place] as (EMGALITY) 00 :00 once every Med ical subcutaneou month for Bra nch s injection 30 days. galcanezuma 2020-09- Yes [id number] 120mg inject 120 Univers b-gnlm 2-10 01-10 mg under ity of prefilled 00:00: 05:59 the skin [place] (EMGALITY) 00 :00 once every Med ical subcutaneou month for Bra nch s injection 30 days. galcanezuma 2020-09- Yes [id number] 120mg inject 120 Univers b-gnlm 2-10 01-10 mg under ity of prefilled 00:00: 05:59 the skin [place] (EMGALITY) 00 :00 once every Med ical subcutaneou month for Bra nch s injection 30 days. galcanezuma 2020-09- Yes [id number] 120mg inject 120 Univers b-gnlm 2-10 01-10 mg under ity of prefilled 00:00: 05:59 the skin [place] (EMGALITY) 00 :00 once every Med ical subcutaneou month for Bra nch s injection 30 days. galcanezuma 2020-09- Yes [id number] 120mg inject 120 Univers b-gnlm 2-10 01-10 mg under ity of prefilled 00:00: 05:59 the skin [place] (EMGALITY) 00 :00 once every Med ical subcutaneou month for Bra nch s injection 30 days. galcanezuma 2020-09- Yes [id number] 120mg inject 120 Univers b-gnlm 2-10 01-10 mg under ity of prefilled 00:00: 05:59 the skin [place] (EMGALITY) 00 :00 once every Med ical subcutaneou month for Bra [facility] s injection 30 days. galcanezuma 2020-09- No [id number] 240mL inject 240 Univers b-gnlm 120 2-10 12-11 mL under ity of mg/mL Syrg 00:00: 05:59 the skin [place] 00 :00 once now Medical for 1 Branch dose. ALPRAZolam 2020-09 Yes [id number] .25mg Take 0.25 Univers (XANAX) 2-07 mg by ity of 0.25 mg 11:33: mouth at [place] tablet 19 bedtime as Medical needed. Branch pregabalin 2020-09 Yes 50mg Take 50 mg U nivers (LYRICA) 50 2-07 by mouth ity of mg capsule 11:33: at [place] 19 bedtime. Medical Branch esomeprazol 2020-09 Yes 20mg Take 20 mg Univers e (NEXIUM) 2-07 by mouth 2 ity of 20 mg 11:33: (two) [place] capsule 19 times Medical daily Branch before breakfast and dinner. ALPRAZolam 2020-09 Yes [id number] .25mg Take 0.25 Univers (XANAX) 2-07 mg by ity of 0.25 mg 11:33: mouth at [place] tablet 19 bedtime as Medical needed. Branch pregabalin 2020-09 Yes 50mg Take 50 mg U nivers (LYRICA) 50 2-07 by mouth ity of mg capsule 11:33: at [place] 19 bedtime. Medical Branch esomeprazol 2020-09 Yes 20mg Take 20 mg Univers e (NEXIUM) 2-07 by mouth 2 ity of 20 mg 11:33: (two) [place] capsule 19 times Medical daily Branch before breakfast and dinner. ALPRAZolam 2020-09 Yes [id number] .25mg Take 0.25 Univers (XANAX) 2-07 mg by ity of 0.25 mg 11:33: mouth at [place] tablet 19 bedtime as Medical needed. Branch pregabalin 2020-09 Yes 50mg Take 50 mg U nivers (LYRICA) 50 2-07 by mouth ity of mg capsule 11:33: at [place] 19 bedtime. Medical Branch esomeprazol 2020-09 Yes 20mg Take 20 mg Univers e (NEXIUM) 2-07 by mouth 2 ity of 20 mg 11:33: (two) [place] capsule 19 times Medical daily Branch before breakfast and dinner. ALPRAZolam 2020-09 Yes [id number] .25mg Take 0.25 Univers (XANAX) 2-07 mg by ity of 0.25 mg 11:33: mouth at [place] tablet 19 bedtime as Medical needed. Branch pregabalin 2020-09 Yes 50mg Take 50 mg U nivers (LYRICA) 50 2-07 by mouth ity of mg capsule 11:33: at [place] 19 bedtime. Medical Branch esomeprazol 2020-09 Yes 20mg Take 20 mg Univers e (NEXIUM) 2-07 by mouth 2 ity of 20 mg 11:33: (two) [place] capsule 19 times Medical daily Branch before breakfast and dinner. ALPRAZolam 2020-09 Yes [id number] .25mg Take 0.25 Univers (XANAX) 2-07 mg by ity of 0.25 mg 11:33: mouth at [place] tablet 19 bedtime as Medical needed. Branch pregabalin 2020-09 Yes 50mg Take 50 mg U nivers (LYRICA) 50 2-07 by mouth ity of mg capsule 11:33: at [place] 19 bedtime. Medical Branch esomeprazol 2020-09 Yes 20mg Take 20 mg Univers e (NEXIUM) 2-07 by mouth 2 ity of 20 mg 11:33: (two) [place] capsule 19 times Medical daily Branch before breakfast and dinner. ALPRAZolam 2020-09 Yes [id number] .25mg Take 0.25 Univers (XANAX) 2-07 mg by ity of 0.25 mg 11:33: mouth at [place] tablet 19 bedtime as Medical needed. Branch pregabalin 2020-09 Yes 50mg Take 50 mg U nivers (LYRICA) 50 2-07 by mouth ity of mg capsule 11:33: at [place] 19 bedtime. Medical Branch esomeprazol 2020-09 Yes 20mg Take 20 mg Univers e (NEXIUM) 2-07 by mouth 2 ity of 20 mg 11:33: (two) [place] capsule 19 times Medical daily Branch before breakfast and dinner. ALPRAZolam 2020-09 Yes [id number] .25mg Take 0.25 Univers (XANAX) 2-07 mg by ity of 0.25 mg 11:33: mouth at [place] tablet 19 bedtime as Medical needed. Branch pregabalin 2020-09 Yes 50mg Take 50 mg U nivers (LYRICA) 50 2-07 by mouth ity of mg capsule 11:33: at [place] 19 bedtime. Medical Branch esomeprazol 2020-09 Yes 20mg Take 20 mg Univers e (NEXIUM) 2-07 by mouth 2 ity of 20 mg 11:33: (two) [place] capsule 19 times Medical daily Branch before breakfast and dinner. digoxin 2020-09 Yes 125ug Take 1 Univers (DIGOX) 125 2-07 tablet by ity of mcg (0.125 00:00: mouth [place] mg) tablet 00 daily. Medical Branch furosemide 2020-09 Yes 20mg Take 1 Unive rs (LASIX) 20 2-07 tablet by ity of mg tablet 00:00: mouth [place] 00 needed. Medical Branch rosuvastati 2020-09 Yes 10mg Take 2 Univ ers n (CRESTOR) 2-07 tablets by it y of 5 mg tablet 00:00: mouth [place] 00 daily. Medical Branch digoxin 2020-09 Yes 125ug Take 1 Univers (DIGOX) 125 2-07 tablet by ity of mcg (0.125 00:00: mouth [place] mg) tablet 00 daily. Medical Branch furosemide 2020-09 Yes 20mg Take 1 Unive rs (LASIX) 20 2-07 tablet by ity of mg tablet 00:00: mouth [place] 00 needed. Medical Branch rosuvastati 2020-09 Yes 10mg Take 2 Univ ers n (CRESTOR) 2-07 tablets by it y of 5 mg tablet 00:00: mouth [place] 00 daily. Medical Branch digoxin 2020-09 Yes 125ug Take 1 Univers (DIGOX) 125 2-07 tablet by ity of mcg (0.125 00:00: mouth [place] mg) tablet 00 daily. Medical Branch furosemide 2020-09 Yes 20mg Take 1 Unive rs (LASIX) 20 2-07 tablet by ity of mg tablet 00:00: mouth [place] 00 needed. Medical Branch rosuvastati 2020-09 Yes 10mg Take 2 Univ ers n (CRESTOR) 2-07 tablets by it y of 5 mg tablet 00:00: mouth [place] 00 daily. Medical Branch digoxin 2020-09 Yes 125ug Take 1 Univers (DIGOX) 125 2-07 tablet by ity of mcg (0.125 00:00: mouth [place] mg) tablet 00 daily. Medical Branch furosemide 2020-09 Yes 20mg Take 1 Unive rs (LASIX) 20 2-07 tablet by ity of mg tablet 00:00: mouth [place] 00 needed. Medical Branch rosuvastati 2020-09 Yes 10mg Take 2 Univ ers n (CRESTOR) 2-07 tablets by it y of 5 mg tablet 00:00: mouth [place] 00 daily. Medical Branch digoxin 2020-09 Yes 125ug Take 1 Univers (DIGOX) 125 2-07 tablet by ity of mcg (0.125 00:00: mouth [place] mg) tablet 00 daily. Medical Branch furosemide 2020-09 Yes 20mg Take 1 Unive rs (LASIX) 20 2-07 tablet by ity of mg tablet 00:00: mouth [place] 00 needed. Medical Branch rosuvastati 2020-09 Yes 10mg Take 2 Univ ers n (CRESTOR) 2-07 tablets by it y of 5 mg tablet 00:00: mouth [place] 00 daily. Medical Branch digoxin 2020-09 Yes 125ug Take 1 Univers (DIGOX) 125 2-07 tablet by ity of mcg (0.125 00:00: mouth [place] mg) tablet 00 daily. Medical Branch furosemide 2020-09 Yes 20mg Take 1 Unive rs (LASIX) 20 2-07 tablet by ity of mg tablet 00:00: mouth [place] 00 needed. Medical Branch rosuvastati 2020-09 Yes 10mg Take 2 Univ ers n (CRESTOR) 2-07 tablets by it y of 5 mg tablet 00:00: mouth [place] 00 daily. Medical Branch albuterol 2020-09 Yes [id number] 1.25mg Inhale 1.5 Univers 2.5 mg /3 1-11 mL every 4 ity of mL (0.083 00:00: (four) [place] %) 00 hours. Medical nebulizer Branch solution albuterol 2020-09 Yes [id number] 1.25mg Inhale 1.5 Univers 2.5 mg /3 1-11 mL every 4 ity of mL (0.083 00:00: (four) [place] %) 00 hours. Medical nebulizer Branch solution albuterol 2020-09 Yes [id number] 1.25mg Inhale 1.5 Univers 2.5 mg /3 1-11 mL every 4 ity of mL (0.083 00:00: (four) [place] %) 00 hours. Medical nebulizer Branch solution albuterol 2020-09 Yes [id number] 1.25mg Inhale 1.5 Univers 2.5 mg /3 1-11 mL every 4 ity of mL (0.083 00:00: (four) [place] %) 00 hours. Medical nebulizer Branch solution albuterol 2020-09 Yes [id number] 1.25mg Inhale 1.5 Univers 2.5 mg /3 1-11 mL every 4 ity of mL (0.083 00:00: (four) [place] %) 00 hours. Medical nebulizer Branch solution albuterol 2020-09 Yes [id number] 1.25mg Inhale 1.5 Univers 2.5 mg /3 1-11 mL every 4 ity of mL (0.083 00:00: (four) [place] %) 00 hours. Medical nebulizer Branch solution albuterol 2020-09 Yes [id number] 2{puff} Inhale 2 Univers 90 1-05 Puffs ity of mcg/actuati 00:00: every 6 [place] on inhaler 00 (six) Medical hours as Branch needed for Wheezing or Shortness of Breath. albuterol 2020-09 Yes [id number] 2{puff} Inhale 2 Univers 90 1-05 Puffs ity of mcg/actuati 00:00: every 6 [place] on inhaler 00 (six) Medical hours as Branch needed for Wheezing or Shortness of Breath. albuterol 2020-09 Yes [id number] 2{puff} Inhale 2 Univers 90 1-05 Puffs ity of mcg/actuati 00:00: every 6 [place] on inhaler 00 (six) Medical hours as Branch needed for Wheezing or Shortness of Breath. albuterol 2020-09 Yes [id number] 2{puff} Inhale 2 Univers 90 1-05 Puffs ity of mcg/actuati 00:00: every 6 [place] on inhaler 00 (six) Medical hours as Branch needed for Wheezing or Shortness of Breath. albuterol 2020-09 Yes [id number] 2{puff} Inhale 2 Univers 90 1-05 Puffs ity of mcg/actuati 00:00: every 6 [place] on inhaler 00 (six) Medical hours as Branch needed for Wheezing or Shortness of Breath. albuterol 2020-09 Yes [id number] 2{puff} Inhale 2 Univers 90 1-05 Puffs ity of mcg/actuati 00:00: every 6 [place] on inhaler 00 (six) Medical hours as Branch needed for Wheezing or Shortness of Breath. carvediloL 2020-09 Yes 25mg Take 1 Unive rs 25 mg 0-27 tablet by ity of tablet 00:00: mouth (two) Medical times Branch daily with meals. carvediloL 2020-09 Yes 25mg Take 1 Unive rs 25 mg 0-27 tablet by ity of tablet 00:00: mouth (two) Medical times Branch daily with meals. carvediloL 2020-09 Yes 25mg Take 1 Unive rs 25 mg 0-27 tablet by ity of tablet 00:00: mouth (two) Medical times Branch daily with meals. carvediloL 2020-09 Yes 25mg Take 1 Unive rs 25 mg 0-27 tablet by ity of tablet 00:00: mouth (two) Medical times Branch daily with meals. carvediloL 2020-09 Yes 25mg Take 1 Unive rs 25 mg 0-27 tablet by ity of tablet 00:00: mouth (two) Medical times Branch daily with meals. carvediloL 2020-09 Yes 25mg Take 1 Unive rs 25 mg 0-27 tablet by ity of tablet 00:00: mouth (two) Medical times Branch daily with meals. ubrogepant 2020-09 Yes [id number] 100mg Take 100 Univers (UBRELVY) 0-19 mg by ity of 100 mg Tab 00:00: mouth as [place] 00 needed Medical (migraine) Branch . Take at onset of migraine, repeat x1 in 2h if headache remains ubrogepant 2020-09 Yes [id number] 100mg Take 100 Univers (UBRELVY) 0-19 mg by ity of 100 mg Tab 00:00: mouth as [place] 00 needed Medical (migraine) Branch . Take at onset of migraine, repeat x1 in 2h if headache remains ubrogepant 2020-09 Yes [id number] 100mg Take 100 Univers (UBRELVY) 0-19 mg by ity of 100 mg Tab 00:00: mouth as [place] 00 needed Medical (migraine) Branch . Take at onset of migraine, repeat x1 in 2h if headache remains ubrogepant 2020-09 Yes [id number] 100mg Take 100 Univers (UBRELVY) 0-19 mg by ity of 100 mg Tab 00:00: mouth as [place] 00 needed Medical (migraine) Branch . Take at onset of migraine, repeat x1 in 2h if headache remains ubrogepant 2020-09 Yes [id number] 100mg Take 100 Univers (UBRELVY) 0-19 mg by ity of 100 mg Tab 00:00: mouth as [place] 00 needed Medical (migraine) Branch . Take at onset of migraine, repeat x1 in 2h if headache remains ubrogepant 2020-09 Yes [id number] 100mg Take 100 Univers (UBRELVY) 0-19 mg by ity of 100 mg Tab 00:00: mouth as [place] 00 needed Medical (migraine) Branch . Take at onset of migraine, repeat x1 in 2h if headache remains nitroglycer 2020-[id number] 1 Univers in 0.4 mg 0-10 tablet ity of sublingual 00:00: under the [place] tablet 00 tongue Medical every 5 Branch (five) minutes as needed for Chest pain. nitroglycer 2020-[id number] 1 Univers in 0.4 mg 0-10 tablet ity of sublingual 00:00: under the [place] tablet 00 tongue Medical every 5 Branch (five) minutes as needed for Chest pain. nitroglycer 2020-[id number] 1 Univers in 0.4 mg 0-10 tablet ity of sublingual 00:00: under the [place] tablet 00 tongue Medical every 5 Branch (five) minutes as needed for Chest pain. nitroglycer 2020-[id number] 1 Univers in 0.4 mg 0-10 tablet ity of sublingual 00:00: under the [place] tablet 00 tongue Medical every 5 Branch (five) minutes as needed for Chest pain. nitroglycer 2020-[id number] 1 Univers in 0.4 mg 0-10 tablet ity of sublingual 00:00: under the [place] tablet 00 tongue Medical every 5 Branch (five) minutes as needed for Chest pain. nitroglycer 2020-[id number] 1 Univers in 0.4 mg 0-10 tablet ity of sublingual 00:00: under the [place] tablet 00 tongue Medical every 5 Branch (five) minutes as needed for Chest pain. nortriptyli 2020- No [id number] Take 1 Univers ne 25 mg 9-10 12-20 capsule by ity of capsule 00:00: 05:59 mouth at [place] 00 :00 bedtime Medical for 10 Branch days, THEN 2 capsules at bedtime for 90 days. nortriptyli 2020- No [id number] Take 1 Univers ne 25 mg 9-10 12-20 capsule by ity of capsule 00:00: 05:59 mouth at [place] 00 :00 bedtime Medical for 10 Branch days, THEN 2 capsules at bedtime for 90 days. nortriptyli 2020- No [id number] Take 1 Univers ne 25 mg 9-10 12-20 capsule by ity of capsule 00:00: 05:59 mouth at [place] 00 :00 bedtime Medical for 10 Branch days, THEN 2 capsules at bedtime for 90 days. nortriptyli 2020- No [id number] Take 1 Univers ne 25 mg 9-10 12-20 capsule by ity of capsule 00:00: 05:59 mouth at [place] 00 :00 bedtime Medical for 10 Branch days, THEN 2 capsules at bedtime for 90 days. VRAYLAR 3 Yes 1{capsu Take 1 Uni vers mg Cap 8-25 le} capsule by ity of 00:00: mouth at [place] 00 bedtime. Medical Branch VRAYLAR 3 2020- Yes 1{capsu Take 1 Uni vers mg Cap 8-25 le} capsule by ity of 00:00: mouth at [place] 00 bedtime. Medical Branch VRAYLAR 3 Yes 1{capsu Take 1 Uni vers mg Cap 8-25 le} capsule by ity of 00:00: mouth at [place] bedtime. Medical Branch VRAYLAR 3 Yes 1{capsu Take 1 Uni vers mg Cap 8-25 le} capsule by ity of 00:00: mouth at [place] bedtime. Medical Branch VRAYLAR 3 Yes 1{capsu Take 1 Uni vers mg Cap 8-25 le} capsule by ity of 00:00: mouth at [place] bedtime. Medical Branch VRAYLAR 3 Yes 1{capsu Take 1 Uni vers mg Cap 8-25 le} capsule by ity of 00:00: mouth at [place] bedtime. Medical Branch albuterol Yes [id number] 2.5mg Inhale 3 Univers 2.5 mg /3 8-05 mL every 6 ity of mL (0.083 00:00: ([facility]) [place] %) 00 hours as Medical nebulizer needed for Bran ch solution Wheezing or Shortness of Breath. albuterol Yes [id number] 2.5mg Inhale 3 Univers 2.5 mg /3 8-05 mL every 6 ity of mL (0.083 00:00: ([facility]) [place] %) 00 hours as Medical nebulizer needed for Bran ch solution Wheezing or Shortness of Breath. albuterol Yes [id number] 2.5mg Inhale 3 Univers 2.5 mg /3 8-05 mL every 6 ity of mL (0.083 00:00: (six) [place] %) 00 hours as Medical nebulizer needed for Bran ch solution Wheezing or Shortness of Breath. albuterol Yes [id number] 2.5mg Inhale 3 Univers 2.5 mg /3 8-05 mL every 6 ity of mL (0.083 00:00: (six) [place] %) 00 hours as Medical nebulizer needed for Bran ch solution Wheezing or Shortness of Breath. albuterol Yes [id number] 2.5mg Inhale 3 Univers 2.5 mg /3 8-05 mL every 6 ity of mL (0.083 00:00: (six) [place] %) 00 hours as Medical nebulizer needed for Bran ch solution Wheezing or Shortness of Breath. albuterol 2021-0 Yes [id number] 2.5mg Inhale 3 Univers 2.5 mg /3 8-05 mL every 6 ity of mL (0.083 00:00: (six) [place] %) 00 hours as Medical nebulizer needed for Bran ch solution Wheezing or Shortness of Breath. albuterol 2021-0 Yes [id number] 2.5mg Inhale 3 Univers 2.5 mg /3 8-05 mL every 6 ity of mL (0.083 00:00: (six) [place] %) 00 hours as Medical nebulizer needed for Bran ch solution Wheezing or Shortness of Breath. apixaban 2021-0 Yes 5mg Take 1 Univers (ELIQUIS) 5 7-14 tablet by ity of mg tablet 00:00: mouth (two) Medical times Branch daily. Indication s: Recurrent DVT apixaban 2021-0 Yes 5mg Take 1 Univers (ELIQUIS) 5 7-14 tablet by ity of mg tablet 00:00: mouth (two) Medical times Branch daily. Indication s: Recurrent DVT apixaban 2021-0 Yes 5mg Take 1 Univers (ELIQUIS) 5 7-14 tablet by ity of mg tablet 00:00: mouth (two) Medical times Branch daily. Indication s: Recurrent DVT apixaban 2021-0 Yes 5mg Take 1 Univers (ELIQUIS) 5 7-14 tablet by ity of mg tablet 00:00: mouth (two) Medical times Branch daily. Indication s: Recurrent DVT apixaban 2021-0 Yes 5mg Take 1 Univers (ELIQUIS) 5 7-14 tablet by ity of mg tablet 00:00: mouth (two) Medical times Branch daily. Indication s: Recurrent DVT apixaban 2021-0 Yes 5mg Take 1 Univers (ELIQUIS) 5 7-14 tablet by ity of mg tablet 00:00: mouth (two) Medical times Branch daily. Indication s: Recurrent DVT apixaban 2021-0 Yes 5mg Take 1 Univers (ELIQUIS) 5 7-14 tablet by ity of mg tablet 00:00: mouth (two) Medical times Branch daily. Indication s: Recurrent DVT fluticasone Yes 100ug QD 2 sprays M ethodi propionate 6-25 ([address] (FLONASE) 00:00: total) by Hos elenita 50 00 Each Nare l mcg/actuati route on nasal daily. spray fexofenadin 2020- No 180mg QD Take 1 Me thodi e (SUDHAKAR) 6-25 07-[address] 180 MG 00:00: 04:59 [...] times a l mcg/actuati day. on inhaler ALPRAZolam Yes .25mg QD Take 0.25 M ethodi (XANAX) 6-[address] 0.25 MG 22:52: mouth [facility]ospita tablet 44 nightly as l needed for anxiety. carvediloL Yes 25mg Q.5D Take 25 mg M [...] capsule 44 nightly. 2 l capsules cholecalcif 2020-0 Yes 2000U QD Take 2,000 Methodi florentino, 6-[address] vitamin D3, 22:52: mouth Hospi ta 1,000 unit 44 daily. l tablet tiotropium 0 Yes 1{capsu QD Place 1 M ethodi [...] day. l ophthalmic emulsion albuterol Yes 1{ampul Q.[id number] Take 1 Methodi (ACCUNEB) 6-24 e} [id number] ampule by st 1.25 mg/3 22:52: 3D nebulizati Ho spita mL 44 on 3 l nebulizer (three) solution times a day. benztropine 0 Yes 1mg Q.5D Take 1 mg M [...] 22:52: mouth Hospita tablet 44 daily. l esomeprazol 2020- No 20mg QD Take 20 mg Methodi e (NexIUM) 03-[address] 20 MG 20:19: 00:00 daily Hospita capsule 48 :00 before l breakfast. ARIPiprazol 2020- No 5mg QD Take 5 [...] hours as needed for wheezing. esomeprazol 2020- No 40mg QD Take 1 Met hodi e (NexIUM) 03-18 07-[address] 40 MG 00:00: 04:59 (40 [...] 03-18- package st (Medrol, 00:00: 04:59 directions [place] Gandara,) 4 mg 00 :00 l tablet promethazin 2020- No 12.5mg Q6H Take 1 M ethodi e 03-[address] (PHENERGAN) 00:00: 04:59 (12.5 mg H ospita 12.5 MG 00 :00 total) by l tablet mouth every 6 (six) hours as needed for nausea or vomiting for up to 3 days. tiotropium Yes [id number] 1{puff} Inhale 1 Univers bromide 6-02 Puff ity of (SPIRIVA 00:00: daily. [place] RESPIMAT) Medical 2.5 Branch mcg/actuati on Mist fluticasone Yes [id number] 1{puff} Inhale 1 Univers furoate-natan 6-02 Puff ity of anteroL 00:00: daily. [place] ([address]) Branch 200-25 mcg/dose DsDv tiotropium Yes [id number] 1{puff} Inhale 1 Univers bromide 6-02 Puff ity of (SPIRIVA 00:00: daily. [place] RESPIMAT) Medical 2.5 Branch mcg/actuati on Mist fluticasone Yes [id number] 1{puff} Inhale 1 Univers furoate-natan 6-02 Puff ity of anteroL 00:00: daily. [place] ([address] ELLIP) Branch 200-25 mcg/dose DsDv tiotropium Yes [id number] 1{puff} Inhale 1 Univers bromide 6-02 Puff ity of (SPIRIVA 00:00: daily. [place] RESPIMAT) 00 Medical 2.5 Branch mcg/actuati on Mist fluticasone Yes [id number] 1{puff} Inhale 1 Univers furoate-natan 6-02 Puff ity of anteroL 00:00: daily. [place] ([place] [id number] Medical ELLIP) Branch 200-25 mcg/dose DsDv tiotropium Yes [id number] 1{puff} Inhale 1 Univers bromide 6-02 Puff ity of (SPIRIVA 00:00: daily. [place] RESPIMAT) 00 Medical 2.5 Branch mcg/actuati on Mist fluticasone Yes [id number] 1{puff} Inhale 1 Univers furoate-natan 6-02 Puff ity of anteroL 00:00: daily. [address]) Branch 200-25 mcg/dose DsDv tiotropium Yes [id number] 1{puff} Inhale 1 Univers bromide 6-02 Puff ity of (SPIRIVA 00:00: daily. [place] [facility] Medical 2.5 Branch mcg/actuati on Mist fluticasone Yes [id number] 1{puff} Inhale 1 Univers furoate-natan 6-02 Puff ity of anteroL 00:00: daily. [address]) Branch 200-25 mcg/dose DsDv tiotropium Yes [id number] 1{puff} Inhale 1 Univers bromide 6-02 Puff ity of (SPIRIVA 00:00: daily. [place] [id number] Medical 2.5 Branch mcg/actuati on Mist fluticasone Yes [id number] 1{puff} Inhale 1 Univers furoate-natan 6-02 Puff ity of anteroL 00:00: daily. [address]) Branch 200-25 mcg/dose DsDv tiotropium Yes [id number] 1{puff} Inhale 1 Univers bromide 6-02 Puff ity of (SPIRIVA 00:00: daily. [place] [facility] Medical 2.5 Branch mcg/actuati on Mist fluticasone Yes [id number] 1{puff} Inhale 1 Univers furoate-natan 6-02 Puff ity of anteroL 00:00: daily. [place] ([address]) Branch 200-25 mcg/dose DsDv ALPRAZolam Yes .25mg Take 0.25 C HI [...] MG 14:04: mouth Medical tablet 46 daily. Ace venlafaxine Yes 150mg QD Take [address] (EFFEXOR-XR 5-21 [facility] ) 150 MG 24 14:04: mouth Medic al hr capsule 46 daily. Ace apixaban Yes 5mg QD Take [address] [facility] (ELIQUIS) 5 5-21 by mouth Luke [facility] - mg Tab 14:04: daily. Medical tablet 46 Ace levETIRAcet Yes 1000mg Q.5D Take 1,[address] [facility] am (KEPPRA) 5-21 mg by [facility] - 1000 MG 14:04: mouth 2 Medical tablet 46 (two) Center times daily. loratadine Yes 10mg QD Take [address] (CLARITIN) 5-21 by mouth [facility] - 10 mg 14:04: daily. Medical tablet 46 Ace pregabalin Yes 50mg QD Take 50 mg [...] daily as M edical 31 :00 needed. Ace ARIPiprazol No 5mg QD Take [address] [facility] (ABILIFY) 5-19 05-19 by mouth Berta es - 5 MG tablet 22:18: 00:00 nightly. M edical 03 :00 Ace ARIPiprazol No 10mg QD Take [address] [facility] (ABILIFY) 5-19 05-19 by mouth Berta es - 10 MG 22:17: 00:00 daily. Medical disintegrat 48 :00 Center ing tablet benzonatate Yes [id number] 100mg Take 1 Univers (TESSALON 2-11 capsule by itnessa of PERLGADIEL) 100 00:00: mouth 3 Basilio as mg capsule 00 (three) Medica l times Branch daily as needed for Cough. benzonatate Yes [id number] 100mg Take 1 Univers (TESSALON 2-11 capsule by ity of PERLGADIEL) 100 00:00: mouth 3 [place] as mg capsule 00 (three) Medica l times Branch daily as needed for Cough. benzonatate Yes [id number] 100mg Take 1 Univers (TESSALON 2-11 capsule by ity of PERLGADIEL) 100 00:00: mouth 3 [place] as mg capsule 00 (three) Medica l times Branch daily as needed for Cough. benzonatate Yes [id number] 100mg Take 1 Univers (TESSALON 2-11 capsule by ity of PERLGADIEL) 100 00:00: mouth 3 [place] as mg capsule 00 (three) Medica l times Branch daily as needed for Cough. benzonatate Yes [id number] 100mg Take 1 Univers (TESSALON 2-11 capsule by itnessa of GAVI) 100 00:00: mouth 3 [place] as mg capsule 00 (three) Medica l times Branch daily as needed for Cough. benzonatate Yes [id number] 100mg Take 1 Univers (TESSALON 2-11 capsule by itRoxanne) 100 00:00: mouth 3 [place] as mg capsule 00 (three) Medica l times Branch daily as needed for Cough. benzonatate Yes [id number] 100mg Take 1 Univers (TESSALON 2-11 capsule by itRoxanne) 100 00:00: mouth 3 [place] as mg capsule 00 (three) Medica l times Branch daily as needed for Cough. levETIRAcet Yes [id number] 1000mg Take 2 Univers am 500 mg 7-29 tablets by ity of tablet 00:00: mouth 2 [place] (two) Medical times Branch daily. levETIRAcet Yes [id number] 1000mg Take 2 Univers am 500 mg 7-29 tablets by ity of tablet 00:00: mouth 2 (two) Medical times Branch daily. levETIRAcet 2018- Yes [id number] 1000mg Take 2 Univers am 500 mg 7-29 tablets by ity of tablet 00:00: mouth 2 [place] (two) Medical times Branch daily. levETIRAcet 2018- Yes [id number] 1000mg Take 2 Univers am 500 mg 7-29 tablets by ity of tablet 00:00: mouth 2 [place] (two) Medical times Branch daily. levETIRAcet 2018- Yes [id number] 1000mg Take 2 Univers am 500 mg 7-29 tablets by ity of tablet 00:00: mouth 2 [place] (two) Medical times Branch daily. levETIRAcet 2018- Yes [id number] 1000mg Take 2 Univers am 500 mg 7-29 tablets by ity of tablet 00:00: mouth 2 [place] (two) Medical times Branch daily. levETIRAcet 2018- Yes [id number] 1000mg Take 2 Univers am 500 mg 7-29 tablets by ity of tablet 00:00: mouth 2 [place] 00 (two) Medical times Branch daily. blood sugar 2017-09 Yes [id number] Use as Univers diagnostic 0-24 directed. ity of (TRUETEST 00:00: [place]. [place] TEST 00 Check once Medical STRIPS) daily Branch strip lancets 2017-09 Yes [id number] Use as Uni vers (TRUEPLUS 0-24 directed. ity o f LANCETS) 33 00:00: R [place].03, [place] gauge Misc 00 Check once Med ical daily Branch blood sugar 2017-09 Yes [id number] Use as Univers diagnostic 0-24 directed. ity of (TRUETEST 00:00: [place] TEST 00 Check once Medical STRIPS) daily Branch strip lancets 2017-09 Yes [id number] Use as Uni vers (TRUEPLUS 0-24 directed. ity o f LANCETS) 33 00:00: R [place].03, [place] gauge Misc 00 Check once Med ical daily Branch blood sugar 2017-09 Yes [id number] Use as Univers diagnostic 0-24 directed. ity of (TRUETEST 00:00: [place]. [place] TEST 00 Check once Medical STRIPS) daily Branch strip lancets 2017-09 Yes [id number] Use as Uni vers (TRUEPLUS 0-24 directed. ity o f LANCETS) 33 00:00: R 73.03, [place] gauge Misc 00 Check once Med ical daily Branch blood sugar 2017-09 Yes [id number] Use as Univers diagnostic 0-24 directed. ity of (TRUETEST 00:00: [place]. [place] TEST 00 Check once Medical STRIPS) daily Branch strip lancets 2017-09 Yes [id number] Use as Uni vers (TRUEPLUS 0-24 directed. ity o f LANCETS) 33 00:00: R 73.03, [place] gauge Misc 00 Check once Med ical daily Branch blood sugar 2017-09 Yes [id number] Use as Univers diagnostic 0-24 directed. ity of (TRUETEST 00:00: [place]. [place] TEST 00 Check once Medical STRIPS) daily Branch strip lancets 2017-09 Yes [id number] Use as Uni vers (TRUEPLUS 0-24 directed. ity o f LANCETS) 33 00:00: R 73.03, [place] gauge Misc 00 Check once Med ical daily Branch blood sugar 2017-09 Yes [id number] Use as Univers diagnostic 0-24 directed. ity of (TRUETEST 00:00: [place]. [place] TEST 00 Check once Medical STRIPS) daily Branch strip lancets 2017-09 Yes [id number] Use as Uni vers (TRUEPLUS 0-24 directed. ity o f LANCETS) 33 00:00: R 73.03, [place] gauge Misc 00 Check once Med ical daily Branch blood sugar 2017-09 Yes [id number] Use as Univers diagnostic 0-24 directed. ity of (TRUETEST 00:00: R [place]. [place] TEST 00 Check once Medical STRIPS) daily Branch strip lancets 2017-09 Yes [id number] Use as Uni vers (TRUEPLUS 0-24 directed. ity o f LANCETS) 33 00:00: R 73.03, [place] gauge Misc 00 Check once Med ical daily Branch busPIRone 0 Yes TK 1 T PO Uni vers 15 mg 9-22 BID ity of tablet 00:00: [place] [facility] venlafaxine Yes 150mg 150 mg at Univers XR 150 mg 9 bedtime. ity of 24 hr 00:00: [place] capsule [facility] Branch busPIRone Yes TK 1 T PO Uni vers 15 mg 9-22 BID ity of tablet 00:00: [place] [facility] venlafaxine Yes 150mg 150 mg at Univers XR 150 mg 9 bedtime. ity of 24 hr 00:00: [place] capsule Medical Branch busPIRone 0 Yes TK 1 T PO Uni vers 15 mg 9-22 BID ity of tablet 00:00: [place] [facility] venlafaxine Yes 150mg 150 mg at Univers XR 150 mg 9 bedtime. ity of 24 hr 00:00: [place] capsule Medical Branch busPIRone 0 Yes TK 1 T PO Uni vers 15 mg 9-22 BID ity of tablet 00:00: [place] [facility] venlafaxine Yes 150mg 150 mg at Univers XR 150 mg 9-22 bedtime. ity of 24 hr 00:00: [place] capsule [facility] Branch busPIRone 2017-0 Yes TK 1 T PO Uni vers 15 mg -22 BID ity of tablet 00:00: [place] 00 Medical Branch venlafaxine Yes 150mg 150 mg at Univers XR 150 mg 06-16 bedtime. ity of 24 hr 00:00: [place] capsule 00 Medical Branch busPIRone Yes TK 1 T PO Uni vers 15 mg -22 BID ity of tablet 00:00: [place] 00 Medical Branch venlafaxine Yes 150mg 150 mg at Univers XR 150 mg 06-16 bedtime. ity of 24 hr 00:00: [place] capsule Medical Branch busPIRone Yes TK 1 T PO Uni vers 15 mg -22 BID ity of tablet 00:00: [place] [facility] venlafaxine Yes 150mg 150 mg at Univers XR 150 mg 06-16 bedtime. ity of 24 hr 00:00: [place] capsule Medical Branch loratadine Yes as needed. U nivers (CLARITIN) 9-11 ity of 10 mg 00:00: [place] tablet 00 Medical Branch loratadine 0 Yes as needed. U nivers (CLARITIN) 9-11 ity of 10 mg 00:00: [place] tablet 00 Medical Branch loratadine 0 Yes as needed. U nivers (CLARITIN) 9-11 ity of 10 mg 00:00: [place] tablet 00 Medical Branch loratadine 0 Yes as needed. U nivers (CLARITIN) 9-11 ity of 10 mg 00:00: [place] tablet 00 Medical Branch loratadine 0 Yes as needed. U nivers (CLARITIN) 9-11 ity of 10 mg 00:00: [place] tablet 00 Medical Branch loratadine 0 Yes as needed. U nivers (CLARITIN) 9-11 ity of 10 mg 00:00: [place] tablet 00 Medical Branch loratadine 0 Yes as needed. U nivers (CLARITIN) 9-11 ity of 10 mg 00:00: [place] tablet 00 Medical Branch Immunizations Ordered Filled Immunization Date Status Comments [facility] Immunization Name Name SARS-COV-2 COVID-19 2021-02-08 Completed Unive rsity of MODERNA VACCINE 00:00:00 [facility] Branch SARS-COV-2 COVID-19 2021-02-08 Completed Unive rsity of MODERNA VACCINE 00:00:00 [facility] Branch SARS-COV-2 COVID-19 2021-02-08 Completed Unive rsity of MODERNA VACCINE 00:00:00 [facility] Branch SARS-COV-2 COVID-19 2021-02-08 Completed Unive rsity of MODERNA VACCINE 00:00:00 [facility] Branch SARS-COV-2 COVID-19 2021-02-08 Completed Unive rsity of MODERNA VACCINE 00:00:00 [facility] Branch SARS-COV-2 COVID-19 2021-02-08 Completed Unive rsity of MODERNA VACCINE 00:00:00 [facility] Branch SARS-COV-2 COVID-19 2021-02-08 Completed Unive rsity of MODERNA VACCINE 00:00:00 [facility] SARS-COV-2 COVID-19 2021-01-11 Completed Unive rsity of MODERNA VACCINE 00:00:00 [facility] Branch SARS-COV-2 COVID-19 2021-01-11 Completed Unive rsity of MODERNA VACCINE 00:00:00 [facility] SARS-COV-2 COVID-19 2021-01-11 Completed Unive rsity of MODERNA VACCINE 00:00:00 [facility] Branch SARS-COV-2 COVID-19 2021-01-11 Completed Unive rsity of MODERNA VACCINE 00:00:00 [facility] SARS-COV-2 COVID-19 2021-01-11 Completed Unive rsity of MODERNA VACCINE 00:00:00 [facility] SARS-COV-2 COVID-19 2021-01-11 Completed Unive rsity of MODERNA VACCINE 00:00:00 [facility] SARS-COV-2 COVID-19 2021-01-11 Completed Unive rsity of MODERNA VACCINE 00:00:00 [facility] Influenza Virus 2020-08-13 Completed Universit y of Vaccine 00:00:00 [facility] Influenza Virus 2020-08-13 Completed Universit y of Vaccine 00:00:00 [facility] Influenza Virus 2020-08-13 Completed Universit y of Vaccine 00:00:00 [facility] Influenza Virus 2020-08-13 Completed Universit y of Vaccine 00:00:00 [facility] Influenza Virus 2020-08-13 Completed Universit y of Vaccine 00:00:00 [facility] Influenza Virus 2020-08-13 Completed Universit y of Vaccine 00:00:00 [facility] Influenza Virus 2020-08-13 Completed Universit y of Vaccine 00:00:00 [facility] Pneumococcal 2017-06-23 Completed University o f Polysaccharide, 00:00:00 [place] Med ical PPSV23 (PNEUMOVAX) Branch Pneumococcal 2017-06-23 Completed University o f Polysaccharide, 00:00:00 [place] Med ical PPSV23 (PNEUMOVAX) Branch Pneumococcal 2017-06-23 Completed University o f Polysaccharide, 00:00:00 [place] Med ical PPSV23 (PNEUMOVAX) Branch Pneumococcal 2017-06-23 Completed University o f Polysaccharide, 00:00:00 [place] Med ical PPSV23 (PNEUMOVAX) Branch Pneumococcal 2017-06-23 Completed University o f Polysaccharide, 00:00:00 [place] Med ical PPSV23 (PNEUMOVAX) Branch Pneumococcal 2017-06-23 Completed University o f Polysaccharide, 00:00:00 [place] Med ical PPSV23 (PNEUMOVAX) Branch Pneumococcal 2017-06-23 Completed University o f Polysaccharide, 00:00:00 [place] Med ical PPSV23 (PNEUMOVAX) Branch Influenza High Dose 2015-11-16 Completed Unive rsity of 00:00:00 [facility] Pneumococcal 2015-11-16 Completed University o f Polysaccharide, 00:00:00 [place] Med ical PPSV23 (PNEUMOVAX) Branch Influenza High Dose 2015-11-16 Completed Unive rsity of 00:00:00 [facility] Pneumococcal 2015-11-16 Completed University o f Polysaccharide, 00:00:00 [place] Med ical PPSV23 (PNEUMOVAX) Branch Influenza High Dose 2015-11-16 Completed Unive rsity of 00:00:00 [facility] Pneumococcal 2015-11-16 Completed University o f Polysaccharide, 00:00:00 [place] Med ical PPSV23 (PNEUMOVAX) Branch Influenza High Dose 2015-11-16 Completed Unive rsity of 00:00:00 [facility] Pneumococcal 2015-11-16 Completed University o f Polysaccharide, 00:00:00 [place] Med ical PPSV23 (PNEUMOVAX) Branch Influenza High Dose 2015-11-16 Completed Unive rsity of 00:00:00 [facility] Pneumococcal 2015-11-16 Completed University o f Polysaccharide, 00:00:00 [place] Med ical PPSV23 (PNEUMOVAX) Branch Influenza High Dose 2015-11-16 Completed Unive rsity of 00:00:[address] [facility] Branch Pneumococcal 2015-11-16 Completed University o f Polysaccharide, 00:00:00 [place] Med ical PPSV23 (PNEUMOVAX) Branch Influenza High Dose 2015-11-16 Completed Unive rsity of 00:00:00 [facility] Pneumococcal 2015-11-16 Completed University o f Polysaccharide, 00:00:00 [place] Med ical PPSV23 (PNEUMOVAX) Branch Vital Signs Vital Name Observation Time Observation Value Comments Source HEIGHT 2021-02-10 21:00:00 149.9 cm WEIGHT 2021-02-10 21:00:00 59.467 kg Systolic blood 2021-09-29 16:01:00 116 mm[Hg] Univer sity of pressure [facility] Diastolic blood 2021-09-29 16:01:00 96 mm[Hg] Unive rsity of [facility] Heart rate 2021-09-29 16:01:00 94 /min [facility] Body temperature 2021-09-29 16:01:00 37.28 Ayaka [facility] Respiratory rate 2021-09-29 16:01:00 22 /min [facility] Body weight 2021-09-29 16:01:00 54.432 kg [facility] BMI 2021-09-29 16:01:00 24.24 kg/m2 [facility] Oxygen saturation in 2021-09-29 16:01:00 100 /min [facility] Arterial blood by [facility] Pulse oximetry Branch Systolic blood 2021-09-03 15:48:00 123 mm[Hg] Univer sity of [facility] Diastolic blood 2021-09-03 15:48:00 86 mm[Hg] Unive rsity of [facility] Heart rate 2021-09-03 15:41:00 94 /min [facility] Body temperature 2021-09-03 15:41:[address] [facility] 2021-09-03 15:41:00 20 /min [facility] Body height 2021-09-03 15:41:00 149.9 cm [facility] Body weight 2021-09-03 15:41:00 59.421 kg [facility] BMI 2021-09-03 15:41:00 26.46 kg/m2 [facility] HEIGHT 2021-02-10 21:00:00 149.9 cm WEIGHT 2021-02-10 21:00:00 59.467 kg Oxygen saturation in 2021-03-18 20:00:00 97 /min [facility] Arterial blood by Pulse oximetry Systolic blood 2021-03-18 17:24:48 132 mm[Hg] [facility] pressure Diastolic blood 2021-03-18 17:24:48 72 mm[Hg] [facility] pressure Heart rate 2021-03-18 17:24:48 96 /min [facility] Body temperature 2021-03-18 17:24:48 37 Ayaka [facility] Respiratory rate 2021-03-18 17:24:48 14 /min [facility] Body height 2021-03-18 01:37:00 149.9 cm [facility] Body weight 2021-03-18 00:09:00 58.968 kg [facility] BMI 2021-03-18 00:09:00 26.26 kg/m2 [facility] Systolic blood 2021-02-12 12:00:00 101 mm[Hg] [facility] Diastolic blood 2021-02-12 12:00:00 72 mm[Hg] [facility] Heart rate 2021-02-12 12:00:00 93 /min [facility] Respiratory rate 2021-02-12 12:00:00 18 /min [facility] Oxygen saturation in 2021-02-12 12:00:00 96 /min [facility] Arterial blood by Medical Ce nter Pulse oximetry Body temperature 2021-02-12 11:00:00 37.56 Ay[place] [facility] Body height 2021-02-11 10:15:00 149.9 cm [facility] Body weight 2021-02-11 10:15:00 59.5 kg [facility] BMI 2021-02-11 10:15:00 26.48 kg/m2 [facility] Procedures Procedure Date / Time Performing Clinician Source Performed CONSENT/REFUSAL FOR 2021-09-29 15:53:39 Doctor Unassigned, [facility] DIAGNOSIS AND TREATMENT [place] [facility] POC GLUCOSE 2021-03-18 17:31:00 Cliff Berkowitz spital ECG 12-LEAD 2021-03-18 17:28:01 Laeeq, [facility] TROPONIN 2021-03-18 16:41:00 Laeeq, [facility] TTE COMPLETE, WO 2021-03-18 14:19:12 [facility], [facility] CONTRAST, W DOPPLER ([id number]) POC GLUCOSE 2021-03-18 13:14:00 [facility], [facility] HC COMPLETE BLD COUNT 2021-03-18 10:00:00 [facility], [facility] W/AUTO DIFF COMPREHENSIVE METABOLIC 2021-03-18 10:00:00 [facility], [facility] PANEL MAGNESIUM LEVEL 2021-03-18 10:00:00 [facility] PHOSPHORUS LEVEL 2021-03-18 10:00:00 [facility] LIPID PANEL 2021-03-18 10:00:00 [facility] HEMOGLOBIN A1C 2021-03-18 10:00:00 [facility], [facility] ESTIMATED GFR 2021-03-18 10:00:00 [facility] URINE CULTURE 2021-03-18 06:12:00 [facility], [facility] LEGIONELLA URINARY 2021-03-18 05:36:00 [facility] [place] [facility] ANTIGEN STREPTOCOCCUS PNEUMONIAE 2021-03-18 05:36:00 [facility] URINARY ANTIGEN URINALYSIS SCREEN AND 2021-03-18 05:36:00 [facility], [facility] MICROSCOPY, WITH REFLEX TO CULTURE BLOOD CULTURE, AEROBIC & 2021-03-18 04:35:00 Lae, [facility] ANAEROBIC BLOOD CULTURE, AEROBIC & 2021-03-18 04:25:00 [facility], [facility] ANAEROBIC DIGOXIN LEVEL 2021-03-18 04:24:00 Lae, [facility] TROPONIN 2021-03-18 04:24:00 [facility] LACTIC ACID LEVEL, SEPSIS 2021-03-18 04:24:00 Laeeq, [facility] - NOW AND REPEAT 2X EVERY 3 HOURS POC GLUCOSE 2021-03-18 01:38:00 [facility], [facility] ARTERIAL BLOOD GAS 2021-03-18 01:10:00 [facility], [facility] US DUPLEX VENOUS LOWER 2021-03-18 01:00:06 Lae, [facility] EXTREMITY BILATERAL LACTIC ACID LEVEL, SEPSIS 2021-03-17 23:47:00 Lae, [facility] - NOW AND REPEAT 2X EVERY 3 HOURS TROPONIN 2021-03-17 23:47:00 [facility], [facility] XR CHEST 1 VW PORTABLE 2021-03-17 21:20:18 [facility] HC COMPLETE BLD COUNT 2021-03-17 21:05:00 [facility] W/AUTO DIFF LACTIC ACID LEVEL, SEPSIS 2021-03-17 21:05:00 [facility], [facility] - NOW AND REPEAT 2X EVERY 3 HOURS COMPREHENSIVE METABOLIC 2021-03-17 21:05:00 [facility] PANEL TROPONIN 2021-03-17 21:05:00 [facility] B NATRIURETIC PEPTIDE 2021-03-17 21:05:00 [facility] D-DIMER 2021-03-17 21:05:00 [facility] ESTIMATED GFR 2021-03-17 21:05:00 [facility] ECG ED PRELIMINARY 2021-03-17 20:36:46 [facility] 12-LEAD 2021-03-17 20:19:38 [facility] BASIC METABOLIC PANEL (7) 2021-02-12 05:34:00 Johan [facility] MAGNESIUM 2021-02-12 05:34:00 Johan [facility] PHOSPHORUS 2021-02-12 05:34:00 Johan [facility] CBC W/PLT COUNT & AUTO 2021-02-12 04:48:00 Alison Prado [facility] MR BRAIN WITHOUT IV 2021-02-11 16:08:00 Naina Resnick [facility] MRA HEAD WITHOUT IV 2021-02-11 16:07:00 Naina Resnick [facility] MRA NECK WITHOUT IV 2021-02-11 16:07:00 Naina Resnick [facility] RAPID DRUG SCREEN, URINE 2021-02-11 03:05:00 [facility] URINALYSIS WITH 2021-02-11 03:05:00 [facility] MICROSCOPIC IF INDICATED [facility] URINALYSIS MICROSCOPIC 2021-02-11 03:05:00 Johan Alison [facility] HOMOCYSTEINE 2021-02-11 02:46:00 [facility] RPR 2021-02-11 02:46:00 [facility] TSH/FREE T4 IF INDICATED 2021-02-11 02:46:00 [facility] VITAMIN B12 AND FOLATE 2021-02-11 02:46:00 Johan Alison [facility] CBC W/PLT COUNT & AUTO 2021-02-11 02:46:00 [facility] BASIC METABOLIC PANEL (7) 2021-02-11 02:46:00 Johan [facility] MAGNESIUM 2021-02-11 02:46:00 [facility] 2021-02-11 02:46:00 Johan [facility] C-REACTIVE PROTEIN 2021-02-11 02:46[facility]IG[facility] 2021-02-11 02:46:00 Johan [facility] XR CHEST 1 VIEW PORTABLE 2021-02-10 22:20:00 Johan [facility] / BEDSIDE [facility] POCT-GLUCOSE METER 2021-02-10 21:28:00 Wilmer Vera [facility] LIPID PANEL 2021-02-10 21:22:00 [facility] CREATINE KINASE (CK) 2021-02-10 21:21:00 [facility] HEMOGLOBIN A1C 2021-02-10 21:21:00 Johan [facility] CBC W/PLT COUNT & AUTO 2021-02-10 21:21:00 Alison Prado [facility] COMPREHENSIVE METABOLIC 2021-02-10 21:21:00 Alison Prado [facility] PROTHROMBIN TIME/INR 2021-02-10 21:21:00 [facility] APTT 2021-02-10 21:21:00 Johan [facility] MAGNESIUM 2021-02-10 21:21:00 Johan [facility] PHOSPHORUS 2021-02-10 21:21:00 [facility] HIGH SENSITIVITY TROPONIN 2021-02-10 21:21:00 [facility] B-TYPE NATRIURETIC FACTOR 2021-02-10 21:21:00 Johan [facility] (BNP) [facility] LACTIC ACID, VENOUS 2021-02-10 21:21:00 Johan Alison [facility] ARRYTHMIA IMPLANT REPORT 2021-02-10 00:00:00 Provider, Default C [facility] - SCAN Scanning [facility] Plan of Care Planned Activity Planned Date Details Comments Source Future Scheduled 2021-05-[address] [facility] - Test 00:00:00 (#1) [code = [facility] INFLUENZA VACCINE (#1)] Future Scheduled 2020-09-[address] [facility] - Test 00:00:00 (12+) [code = [facility] DEPRESSION SCREENING (12+)] Future Scheduled [address] [facility] - Test 00:00:00 malignant neoplasm Medical C enter of cervix (procedure) [code = 527699144] Future Scheduled 2000 DTAP/TDAP/TD [facility] Test 00:[facility]:00 VACCINES (1 - Tdap) [facility] [code = DTAP/TDAP/TD VACCINES (1 - Tdap)] Future Scheduled [address] [facility] - Test 00:00:00 SCREENING [code = [facility] nt HEPATITIS C SCREENING] Future Scheduled [facility] Test malignant neoplasm of cervix (procedure) [code = 555406763] Future Scheduled [facility]ACC[facility] [code = INFLUENZA VACCINE] Encounters Start End Encounter Admission Attending Care Care Encounter Source Date/Time Date/Time Type Type Clinicians Facility Department ID 2021-02-10 Inpatient ER BERSHAD, [facility] Neurology [id number] [facility] 20:21:00 WILMER 2020-09-29 Inpatient Mely, [facility] [id number] [facility] 10:15:00 Linus [id number] [facility] 2020-09-28 Inpatient EL Mely, [facility] [id number] [facility] 12:00:00 Linus [id number] [facility] 2022-07-20 2022-07-20 Outpatient R TIMO SYKES [facility] [id number] Univers 09:20:00 09:20:00 TIMO SYKES [id number] [facility] 2021-09-29 2021-09-29 Emergency X NAKUL NARANJO ERT [id number] Univers 10:03:00 10:22:00 ABDULKADIR [facility] 2021-09-29 2021-09-29 Emergency Naranjo, [facility] [id number] Univers 10:03:00 10:22:00 Abdulkadir RAMA 350.1.13.10 i ty of [place] [phone] [facility] 084 Branch 2021-09-21 2021-09-21 Telephone Hines, [facility] [id number] [id number] Univers 00:00:00 00:00:00 Navi ONTIVEROS 350.1.13.10 it[place] of [place] [facility] [phone] Ne dical [facility] 059 Branch BUILDING 2021-09-15 2021-09-15 Telephone [facility], [facility] [id number] Univers 00:00:00 00:00:00 [place]vana SPECIALTY 350.1.13.10 ity of [place] C[place] AT [phone] Ne dical [facility] 092 Branch [facility] 2021-09-08 2021-09-08 Telephone [facility], [facility] [id number] Univers 00:00:00 00:00:00 Chilvana FRIENDSWO 350.1.13.10 [place]2.[place] P[place]IATRIC [phone] Ne dicla AND ADULT [address] [place] [address] SPECIALTY CARE CLINICS 2021-09-06 2021-09-06 Telephone [facility], [facility] [id number] Univers 00:00:00 00:00:00 Chilvana HEALTH 350.1.13.10 i ty of [place] [phone] [facility] 092 Branch OFFICE BUILDING 2021-09-03 2021-09-03 Office Dukes, [facility] 1.2.840.114 [id number] Univers 09:38:02 10:34:22 Visit Chilvana FRIENDSWO 350.1.13.10 it[place] P[place] [phone] Ne dicla AND ADULT [address] [place] [address] SPECIALTY CARE CLINICS 2021-06-30 2021-06-30 Patient Dkues [facility] 1.2.840.114 [id number] Univers 00:00:00 00:00:00 Secure Msg Nuno FRIENDSWO 350.1.13.10 ity of 4.2.7.2.686 Demetrio samuel PEDIATRIC [phone] Ne dical AND ADULT 092 Branch SPECIALTY CARE CLINICS 2021-05-12 2021-05-12 Orders Doctor NURYS 1.2.840.114 [id number] 00:00:00 00:00:00 Only Unassigned, PINKY 350.1.13.10 [facility] 4.2.7.2.686 [id number] 009 2021-04-29 2021-04-29 Office Malena [facility] 1.2.840.114 [id number] 12:33:16 13:56:43 Visit Tucker [place] 350.1.13.10 [place] 4.2.7.2.686 Profleonard [phone] [facility] 2021-04-28 2021-04-28 Orders Malena [facility] 1.2.940.874 [id number] 00:00:00 00:00:00 Only [facility] 350.1.13.10 [facility] 4.2.7.2.686 [id number] 084 2021-03-19 2021-03-19 Patient Salcido, 1.2.840.1 [id number] Methodi 00:00:00 00:00:00 Outreach Ann [address]32.1.[address] 3.430.2.7 Hospit a .3.818804 l .8 2021-03-17 2021-03-18 Emergency Hector Alvarez 1.2.840.1 [id number] Methodi 14:59:00 17:52:00 Veda Bolanos 45231.1.[address] Cliff Berkowitz 3.430.2.7 Hospita .3.503849 l .8 2021-03-17 2021-03-17 Travel 1.2.840.1 1.2.507.012 [id number] Methodi 00:00:00 00:00:[address] 3.430.2.7 0.2.7.3.698 Ho spita .3.708043 084.8 l .8 2019-08-25 2019-08-25 Emergency X LETI [facility] ERT [id number] Univers 17:05:08 22:20:00 DANIELITO [facility]aker [facility] 2017-09-06 2017-09-08 [id number] 10:12:00 02:32:00 [facility] Results Test Description Test Time Test Comments Results Result Comments Source ECG 12 lead 2021-03-19 14:56:41 Test Item Value Reference Range Interpretation Comme nts Ventricular rate (test code = 253) Atrial rate (test code = 255) MN interval (test code = 266) QRSD interval [...] of 17-MAR-2021 15:19,-No significant change was found- [facility] [id number] 12:41:23 Test Item Value Reference Range Interpretation Comments Urine culture isolate Mixed alok <=10-3 (test code = 83697-2) col/cc [facility] HospitalTransthoracic Echocardiogram Complete, (w Contrast, Strain and 3D if needed)2021-03-18 23:04:52 Test Item Value Reference Range Interpretation Comments Ao Root Diameter (test code = 2.73 cm 8736836071) AoV Area, Vmax (test code = 2.24 cm2 3449716898) AoV Area, VTI (test code = 2.25 cm2 7741340109) AoV Mean PG (test code = mmHg 9891676601) AoV Peak PG (test code = mmHg 5146558471) AoV Vmax (test code = 2798859418) 1.46 m/s AoV VTI (test code = 1339031284) 0.28 m IVS,d (test code = 5646551507) 0.72 cm IVS/LVPW,2D (test code = 6871150321) Left Atrium Dimension Anterior 2.68 cm (test code = 6634275120) LV,d (test code = 8726113683) 3.69 cm LV EF,2D (test code = 5605368578) 79.68 % LV,s (test code = 9531721014) 2.17 cm LVOT area (test code = 3100325862) 2.75 cm2 LVOT Diam,S (test code = 1.87 cm 8019779433) LVOT Vmax (test code = 5592166781) 1.18 m/s LVOT VTI (test code = 7789069328) 0.23 m LVPWD,d (test code = 0836036038) 0.65 cm PV Pk Grad (test code = 6262404899) mmHg PV VMAX (test code = 6582744526) 0.84 m/s RVOT Vmax (test code = 0125391960) 0.85 m/s RVSP (TR) (test code = 7336651653) mmHg TR Vpeak (test code = 7960232925) 2.86 mm/s MV E A ratio (test code = 4347125717) RA pressure (test code = mmHg 1650825080) TR pk grad (test code = 6945513716) mmHg MR Vmax (test code = 5536397828) 5.49 m/s E wave decelartion time (test code msec = 2100533727) MV Peak A Alf (test code = 0.76 m/s 5499153602) MV valve area p 1/2 method (test 3.26 cm2 code = 3977717995) MV Peak E Alf (test code = 0.92 m/s 8678733657) MV stenosis pressure 1/2 time (test 67.54 ms code = 9748103687) LVOT stroke volume (test code = 0.63 cm3 7873416309) AV LVOT peak gradient (test code = mmHg 1449374013) RVSP (test code = 7904210374) mmHg Ao Root Diameter (test code = 2.73 cm 9904602488) MV mean gradient (test code = mmHg 3448689006) LV SYS VOL (test code = 4695781850) 15.61 ml LV MARTINS VOL (test code = 57.63 ml 3470836635) LA area s A4C (test code = 11.16 cm2 6697542452) LV SV Teich 2D (test code = 42.02 ml 9294725953) LV Vol s Teich PSAX (test code = 15.61 ml 3326061680) MR peak grad (test code = mmHg 6650085971) MV Vmax (test code = 0905663636) 1.21 m MV VTI Tips (test code = 0.24 m 5090817143) RVOT pk grad (test code = mmHg 5386648898) AoV Vmn (test code = 2442814449) LV FS Teich 2D (test code = 7780643230) MV AE ratio (test code = 2343046826) LV FS Cube 2D (test code = 2817834359) LVOT Vmn (test code = 0306957925) Aov area Vmn (test code = 2.13 cm2 1970783889) LVOT mean grad (test code = mmHg 7452095286) MAX Pred HR (test code = 4991636183) 85 of MPHR (test code = 5181640899) Calc MPHR (test code = 3128149228) bpm LV SV Cube 2D (test code = 39.93 ml 3294196225) LV vol d cube 2D (test code = 50.11 ml 9287837300) LV vol s cube 2D (test code = 10.18 ml 8890000102) MV Decel slope (test code = 3.97 m/s2 7605720947) Pred Exer Dur R1 (test code = 2785544095) Pred METS R1 (test code = 4813556562) LA Vol MOD A4C (test code = 24.20 ml 6153274152) Velocity Ratio (V1/V2) (test code = 0.81 m/s 4689) EF (test code = 2487338902) 72.91 % E/A ratio (test code = 0407582759) LVOT VTI (CM) (test code = 23.00 cm 4740578684) SOMMER (test code = SOMMER) [facility] [id number] 17:32:37 Test Item Value Reference Range Interpretation Comments POC glucose (test code = 40594-6) 207 mg/dL 65-99 H Lab Interpretation (test code = Abnormal 88815-9) Angel Curry duplex venous lower [id number] 01:17:37 EXAMINATION: US DUPLEX VENOUS LOWER EXTREMITY [...] is no evidence of deep venous thrombosis. [facility]-[id number] Interface, Radiology Results 03/17/2021 8:20 PM CDT EXAMINATION: US DUPLEX [...] There is no evidence of deep venous thrombosis.[facility]-[id number] HospitalXR Chest 1 Vw Bnudtbbx1001-20-42 21:32:52EXAMINATION: XR CHEST 1 VW PORTABLE CLINICAL HISTORY: 40 years Female SOB COMPARISON: None. IMPRESSION: Lines, tubes, and devices: Right-sided transvenous cardiac pacemaker. Heart and mediastinum: Cardiomediastinal silhouette is normal. Lungs and pleura: There is no focal airspace disease, pleuraleffusion or pneumothorax. Bones/soft tissues: No acute osseous abnormality. [facility]-[id number] Dictatedand approved by vice president consulting services/fellow: Cristhian Calixto M.D. I, Jan Scott MD, personally reviewed the images and resident's/fellow's findings and agree with the final report.[facility], Rad iology Results Incoming - 03/17/2021 4:35 PM CDTFormatting of this note might be different from theoriginal.EXAMINATION: XR CHEST 1 VW PORTABLECLINICAL HISTORY: 40 years Female SOBCOMPARISON: None.IMPRESSION:Lines, tubes, and devices: Right-sided transvenous cardiac pacemaker.Heart and mediastinum: Cardiomediastinal silhouette is normal.Lungs and pleura: There is no focal airspace disease, pleural effusion or pneumothorax.Bones/soft tissues: No acute osseous abnormality.[facility]-[id number] and approved by vice president consulting services/fellow: Aleksandra Sanchez, Jan Scott MD, personally rev iewed the images and resident's/fellow's findings and agree with the final report.[facility] HospitalARRYTHMIA IMPLANT REPORT - [id number] 20:45:31 Ordered by an unspecified provider.[facility] ED Preliminary Interpretation - Not an [id number] 20:36:46 Test Item Value Reference Range Interpretation Comments SOMMER (test code = SOMMER) Lab Interpretation (test code = Abnormal 55073-4) [facility] HospitalBasic Metabolic [id number] 07:01:00 Test Item Value Reference Range Interpretation Comments Sodium (test code = 137 meq/L 259-426 4064-2) Potassium (test code = 4.3 meq/L 3.5-5.1 2823-3) Chloride (test code = 104 meq/L 98-107 5-0) CO2 (test code = 24 meq/L -29 2027-9) BUN (test code = 15 mg/dL 7- 3094-0) Creatinine (test code 0.81 mg/dL 0.57-1.25 = 2160-0) Glucose (test code = 108 mg/dL 70-105 H 2345-7) Calcium (test code = 9.2 mg/dL 8.4-10.2 18754-0) EGFR (test code = 79 mL/min/1.73 [place] [address]-0) NOT ACCURATE CREATININE CLEARANCE IN PREDICTING GLOMERULAR FILTRATION RATE . ESTIMATED GFR I S NOT APPLICABLE FOR DIALYSIS PATIENTS. SOMMER (test code = SOMMER) Manager Environmental Health And Safety ID - PIAYA L Lab Interpretation Abnormal (test code = 36008-7) [facility] Gardens[facility]esium2021-05-21 07:01:00 Test Item Value Reference Range Interpretation Comments Magnesium (test code = 2.5 mg/dL 1.6-2.6 51004-4) SOMMER (test code = SOMMER) Manager Environmental Health And Safety ID - PIAYA L Lab Interpretation (test Normal code = 76011-4) [facility] GardensPhosphorus2021-05-21 07:01:00 Test Item Value Reference Range Interpretation Comments Phosphorus (test code = 4.3 mg/dL 2.3-4.7 2777-1) SOMMER (test code = SOMMER) Manager Environmental Health And Safety ID - PIAYA L Lab Interpretation (test Normal code = 63700-4) [facility] GardensBASIC METABOLIC [id number] 07:01:00 Test Item Value Reference Range Interpretation [...] S NOT APPLICABLE FOR DIALYSIS PATIEN TS. Manager Environmental Health And Safety ID - PIAYA [id number] 07:01:00 Test Item Value Reference Range Interpretation Comments MAGNESIUM (BEAKER) (test code = 2.5 mg/dL 1.6-2.6 627) Manager Environmental Health And Safety ID - MACHELLE [id number] 07:01:00 Test Item Value Reference Range Interpretation Comments PHOSPHORUS (BEAKER) (test code = 4.3 mg/dL 2.3-4.7 604) Manager Environmental Health And Safety ID - MACHELLE LCBC with platelet count + automated [id number] 05:37:00 Test Item Value Reference Range Interpretation Comments WBC (test code = 6690-2) 6.8 See_Comment [A utomated message] The system [employer] generated this result transmitted ref erence range: 3.5 - 10 .5 K/L. The refe rence range was not u sed to interpret this result as normal/abnor mal. RBC (test code = 789-8) 5.14 See_Comment [Au tomated message] The system [employer] generated this result transmitted ref erence range: 3.93 - 5 .22 M/L. The refe rence range was not u sed to interpret this result as normal/abnor mal. MCHC (test code = 786-4) 31.6 See_Comment L [A utomated message] The system [employer] generated this result transmitted ref erence range: [...] code = 254 See_Comment [Aut omated message] 327-3) The system [employer] generated this result transmitted ref erence range: 150 - 45 0 K/CU MM. The referen ce range was not u sed to interpret this result as normal/abnor mal. MPV (test code = 10.0 fL 9.4-12.3 30623-3) nRBC (test code = 413) 0 See_Comment [Aut omated message] The system [employer] generated this result transmitted ref erence range: [...] [Aut omated message] 670) The system [employer] generated this result transmitted ref erence range: 1.56 - 6 .13 K/L. The refe rence range was not u sed to interpret this result as normal/abnor mal. # Lymphs (test code = 2.10 See_Comment [Auto mated message] 414) The system [employer] generated this result transmitted ref erence range: 1.18 - 3 .74 K/L. The refe rence range was not u sed to interpret this result as normal/abnor mal. # Monos (test code = 0.48 See_Comment H [Autom ated message] 415) The system [employer] generated this result transmitted ref erence range: 0.24 - 0 .36 K/L. The refe rence range was not u sed to interpret this result as normal/abnor mal. # Eos (test code = 416) 0.26 See_Comment [Au tomated message] The system [employer] generated this result transmitted ref erence range: 0.04 - 0 .36 K/L. The refe rence range was not u sed to interpret this result as normal/abnor mal. # Baso (test code = 417) 0.04 See_Comment [A utomated message] The system [employer] generated this result transmitted ref erence range: 0.01 - 0 .08 K/L. The refe rence range was not u sed to interpret this result as normal/abnor mal. Immature 1 % 0-1 Granulocytes-Relative (test code = 2801) Lab Interpretation (test Abnormal code = 35665-3) [facility] W/PLT COUNT & AUTO [id number] 05:37:00 Test Item Value Reference Range Interpretation [...] code = 2801) MR, MRA, BRAIN, WITHOUT [id number] 16:54:00Reason for exam:->Ischemic Stroke EvaluationCH[facility] : 1980 Sex: FFINAL REPORT MR, BRAIN, WITHOUT CONTRAST, MR, MRA, BRAIN, WITHOUT CONTRAST, MR, MRA, NECK, WITHOUT IV CONTRAST INDICATION: Stroke, follow upIschemic Stroke Evaluation TECHNIQUE: Multiplanar, multisequence MR imaging of the brain without intravenous contrast.MRA of the head utilizing 3-D zuzj-yg-pxvraj technique, with 3-D reconstructions.MRA of the neck utilizing 2-D and 3-D rlus-nw-vozalj technique, with 3-D reconstructions. COMPARISON: MRI and [...] Lakshmi Amador Verified Date/Time: 02/11/2021 16:54:16 MR, MRA, NECK, WITHOUT IV [id number] 16:54:00Reason for exam:->Ischemic Stroke Evaluation [facility] : 1980 Sex: FFINAL REPORT MR, BRAIN, WITHOUT CONTRAST, MR, MRA, BRAIN, WITHOUT CONTRAST, MR, MRA, NECK, WITHOUT IV CONTRAST INDICATION: Stroke, follow upIschemic Stroke Evaluation TECHNIQUE: Multiplanar, multisequence MR imaging of the brain without intravenous contrast.MRA of the head utilizing 3-D smwy-sl-nhahks technique, with 3-D reconstructions.MRA of the neck utilizing 2-D and 3-D giyd-vm-xkvyup technique, with 3-D reconstructions. COMPARISON: MRI and [...] Verified Date/Time: 02/11/2021 16:54:16 MR, BRAIN, WITHOUT [id number] 16:54:00Reason for exam:->Ischemic Stroke Evaluation [facility] : 1980 Sex: FFINAL REPORT MR, BRAIN, WITHOUT CONTRAST, MR, MRA, BRAIN, WITHOUT CONTRAST, MR, MRA, NECK, WITHOUT IV CONTRAST INDICATION: Stroke, follow upIschemic Stroke Evaluation TECHNIQUE: Multiplanar, multisequence MR imaging of the brain without intravenous contrast.MRA of the head utilizing 3-D ptyf-gb-inbxeo technique, with 3-D reconstructions.MRA of the neck utilizing 2-D and 3-D piro-il-cnvnjb technique, with 3-D reconstructions. COMPARISON: MRI and [...] Date/Time: 02/11/2021 16:54:16 MR brain without IV [id number] 16:54:00Interface, External Ris In - 02/11/2021 4:56 PM CDTFINAL REPORT MR, BRAIN, WITHOUT CONTRAST, MR, MRA, BRAIN, WITHOUT CONTRAST, MR, MRA, NECK, WITHOUT IV CONTRAST INDICATION: Stroke, follow upIschemic Stroke Evaluation TECHNIQUE: Multiplanar, multisequence MR imaging of the brain without intravenous contrast.MRA of the head utilizing 3-D tqht-fv-eamydc technique, with 3-D reconstructions.MRA of the neck utilizing 2-D and 3-D hgvw-pb-jvcuud technique, with 3-D reconstructions. COMPARISON: MRI and [...] within the head and neck. Signed: [facility] Verified Date/Time: 02/11/2021 16:54:16 [facility] [id number] 16:54:00Interface, External Ris In - 02/11/2021 4:56 PM CDTFINAL REPORT MR, BRAIN, WITHOUT CONTRAST, MR, MRA, BRAIN, WITHOUT CONTRAST, MR, MRA, NECK, WITHOUT IV CONTRAST INDICATION: Stroke, follow upIschemic Stroke Evaluation TECHNIQUE: Multiplanar, multisequence MR imaging of the brain without intravenous contrast.MRA of the head utilizing 3-D mqxb-vm-drazcs technique, with 3-D reconstructions.MRA of the neck utilizing 2-D and 3-D kara-zk-ouhjmp technique, with 3-D reconstructions. COMPARISON: MRI and [...] Lakshmi Amador MDReport Verified Date/Time: 02/11/2021 16:54:16 [facility] without IV [id number] 16:54:00Interface, External Ris In - 02/11/2021 4:56 PM CDTFINAL REPORT MR, BRAIN, WITHOUT CONTRAST, MR, MRA, BRAIN, WITHOUT CONTRAST, MR, MRA, NECK, WITHOUT IV CONTRAST INDICATION: Stroke, follow upIschemic Stroke Evaluation TECHNIQUE: Multiplanar, multisequence MR imaging of the brain without intravenous contrast.MRA of the head utilizing 3-D dnkr-yb-xwwunx technique, with 3-D reconstructions.MRA of the neck utilizing 2-D and 3-D yfxt-li-ddqavu technique, with 3-D reconstructions. COMPARISON: MRI and [...] Lakshmi Amador MDReport Verified Date/Time: 02/11/2021 16:54:16 [facility]21[facility] 14:02:00 Test Item Value Reference Range Interpretation Comments RPR (test code = 07762-8) Nonreactive Nonreactive Lab Interpretation (test code = Normal 86774-5) [facility] GardensRPR2021-05-20 14:02:00 Test Item Value Reference Range Interpretation Comments RPR SCREEN (BEAKER) (test code = Nonreactive Nonreactive 420) Hemoglobin [id number] 09:35:00 Test Item Value Reference Range Interpretation Comments Hemoglobin A1C (test code = 4548-4) 6.0 % 4.3-6.1 Lab Interpretation (test code = Normal 61935-6) [facility] GardensHEMOGLOBIN [id number] 09:35:00 Test Item Value Reference Range Interpretation Comments HEMOGLOBIN A1C (BEAKER) (test code = 6.0 % 4.3-6.1 368) Rapid drug screen, [id number] 07:26:00 Test Item Value Reference Range Interpretation Comments Barbiturate Screen Negative Negative (test code = 71189-8) Benzodiazepine Screen Negative Negative (test code = 62158-9) Cocaine (Metab.) Negative Negative Screen (test code = 3397-7) Methadone Screen (test Negative Negative code = 65681-2) Opiate Screen (test Negative Negative code = 12314-8) Cannabinoid Screen Negative Negative (test code = 02880-9) Amph/Methamph Screen Negative Negative (test code = 32761-6) Phencyclidine Screen Negative Negative (test code = 49529-1) pH, UA (test code = 6.5 5.0-8.0 5803-2) SOMMER (test code = SOMMER) DRUG CUTOFF CONC.Cocaine 300 ng/mL Cannabinoid 50 ng/mLBenzodiazepine 200 ng/mLBarbiturate 200 ng/mLPhencyclidine 25 ng/mLOpiate 300 ng/mLMethadone 300 ng/mLAmphetamine/ 1000 ng/mL Methamphetamine This assay provides an unconfirmed qualitative test result for the clinical management of patients in emergency situations. Chain of custody not maintained. Some pdrv-kjl-utjfqoz medications, as well as adulterants, may cause inaccurate results. Clinical correlation should be applied. A more comprehensive drug screen or confirmation of a detected drug may be performed upon request.Manager Environmental Health And Safety SASHA LLANOS M Lab Interpretation Normal (test code = 56805-6) [facility] GardensRAPID DRUG SCREEN, [id number] 07:26:00 Test Item Value Reference Range Interpretation [...] situations. Chain of custody not maintained. Some kcza-ual-zjkwmai medications, as well as adulterants, may cause inaccurate results. Clinical correlation should be applied. A more comprehensivedrug screen or confirmation of a detected drug may be performed upon request.Manager Environmental Health And Safety SASHA LLANOS MUrinalysis with Microscopic If [id number] 07:11:00 Test Item Value Reference Range Interpretation Comments Color, UA (test code = Light Yellow 5778-6) Clarity, UA (test code = Clear 5767-9) Specific [place], UA (test 1.012 1.001-1.035 code = 5811-5) pH, UA (test code = 6.5 5.0-8.0 5803-2) Protein, UA (test code = Negative Negative 43775-3) Glucose, UA (test code = Negative Negative 365) Ketones, UA (test code = Negative Negative 2514-8) Bilirubin, UA (test code = Negative Negative 02452-6) Blood, UA (test code = Small Negative A 71025-7) Nitrite, UA (test code = Negative Negative 5802-4) Leukocytes, UA (test code Small Negative A = 5799-2) Urobilinogen, UA (test 0.2 mg/dL 0.2-1 code = 69829-4) Specimen Source (test code = 2795) SOMMER (test code = SOMMER) Manager Environmental Health And Safety ID - [auto]Manager Environmental Health And Safety ID - tech Lab Interpretation (test Abnormal code = 42952-9) [facility] GardensUrinalysis Microscopic [id number] 07:11:00 Test Item Value Reference Range Interpretation Comments RBC, UA (test 11 See_Comment [Automated me ssage] code = 05165-7) The system w [facility] generated this result transmitted ref erence range: /HPF. Th e reference range was not used to int erpret this result as normal/abnormal . WBC, UA (test 11 See_Comment [Automated me ssage] code = 5821-4) The system [facility] generated this result transmitted ref erence range: /HPF. Th e reference range was not used to int erpret this result as normal/abnormal . Mucus (test Rare code = 8247-9) Squam Epithel, 3 See_Comment [Automated m essage] UA (test code = The system [facility] 35739-1) generated this result transmitted ref erence range: /HPF. Th e reference range was not used to int erpret this result as normal/abnormal . SOMMER (test code Manager Environmental Health And Safety ID - tech = SOMMER) [facility] GardensURINALYSIS WITH MICROSCOPIC IF [id number] 07:11:00 Test Item Value Reference Range Interpretation [...] = 463) SOURCE(BEAKER) (test code = 2795) Manager Environmental Health And Safety ID - [auto]Manager Environmental Health And Safety ID - techURINALYSIS [id number] 07:11:00 Test Item Value Reference Range Interpretation Comments RBC UA (BEAKER) (test code = 519) 11 /HPF WBC UA (BEAKER) (test code = 520) 11 /HPF MUCUS (BEAKER) (test code = 1574) Rare SQUAMOUS EPITHELIAL (BEAKER) (test 3 /HPF code = 516) Manager Environmental Health And Safety ID - techDigoxin [id number] 06:22:00 Test Item Value Reference Range Interpretation Comments Digoxin Lvl (test code = <0.30 0.8-2 L 47482-6) SOMMER (test code = SOMMER) Manager Environmental Health And Safety ID - MACHELLE L Lab Interpretation (test Abnormal code = 85165-3) [facility] GardensDIGOXIN [id number] 06:22:00 Test Item Value Reference Range Interpretation Comments DIGOXIN LEVEL (BEAKER) (test code = < ng/mL 0.80-2.00 L 669) Manager Environmental Health And Safety ID - MACHELLE JBajvzfiksmur8531-03-09 05:58:00 Test Item Value Reference Range Interpretation Comments Homocysteine (test code = 7.3 umol/L 5.1-15.4 84371-9) SOMMER (test code = SOMMER) Manager Environmental Health And Safety ID - MACHELLE L Lab Interpretation (test Normal code = 71454-9) [facility] GardensTSH/Free T4 If [id number] 05:58:00 Test Item Value Reference Range Interpretation Comments TSH (test code = 4.368 See_Comment [Automated 57690-6) message] The system which generated this result transmit aida reference range : 0.350 - 4.940 uIU/mL. The reference range was not used to interpret this result as normal/abnormal . SOMMER (test code = SOMMER) Manager Environmental Health And Safety ID - MACHELLE L Lab Interpretation Normal (test code = 04781-5) [facility] GardensVitamin B12 and Hxwwyh9781-23-15 05:58:00 Test Item Value Reference Range Interpretation Comments Vitamin B12 (test 557 pg/mL 213-816 code = 2132-9) Folate (test code = 11.20 ng/mL See_Comment [Automa aida 2284-8) message] The system which generated this result transmit aida reference range : >=7.00. The reference range was not used to interpret this result as normal/abnormal . SOMMER (test code = SOMMER) Manager Environmental Health And Safety ID - MACHELLE L Lab Interpretation Normal (test code = 26650-2) [facility] GardensHOMOCYSTEINE2021-05-20 05:58:00 Test Item Value Reference Range Interpretation Comments HOMOCYSTEINE (BEAKER) (test code = 7.3 umol/L 5.1-15.4 642) Manager Environmental Health And Safety ID - MACHELLE LTSH/FREE T4 IF [id number] 05:58:00 Test Item Value Reference Range Interpretation Comments THYROID STIMULATING HORMONE 4.368 uIU/mL 0.350-4.940 (BEAKER) (test code = 772) Manager Environmental Health And Safety ID - MACHELLE LVITAMIN B12 AND [id number] 05:58:00 Test Item Value Reference Range Interpretation Comments VITAMIN B12 557 pg/mL 213-816 (BEAKER) (test code = 774) FOLATE (BEAKER) 11.20 ng/mL See_Comment [Automated message] (test code = 362) The system which generated this result transmitted ref erence range: >=7.00. The reference range was not used to interpr et this result as normal/abnormal . Manager Environmental Health And Safety ID - MACHELLE LC-Reactive Blsnkfn3617-11-21 04:54:00 Test Item Value Reference Range Interpretation Comments CRP (test code = 676) 0.81 mg/dL 0-0.5 H SOMMER (test code = SOMMER) Manager Environmental Health And Safety ID - MACHELLE L Lab Interpretation (test Abnormal code = 96300-9) [facility] GardensMAGNESIUM2021-05-20 04:54:00 Test Item Value Reference Range Interpretation Comments MAGNESIUM (BEAKER) 2.1 mg/dL 1.6-2.6 Specimen slightly (test code = 627) hemolyzed Manager Environmental Health And Safety ID - MACHELLE [id number] 04:54:00 Test Item Value Reference Range Interpretation Comments PHOSPHORUS (BEAKER) 4.3 mg/dL 2.3-4.7 Specimen slightly (test code = 604) hemolyzed Manager Environmental Health And Safety ID - MACHELLE LBASIC METABOLIC [id number] 04:54:00 Test Item Value Reference Range Interpretation [...] S NOT APPLICABLE FOR DIALYSIS PATIEN TS. Manager Environmental Health And Safety ID - MACHELLE LC-REACTIVE [id number] 04:54:00 Test Item Value Reference Range Interpretation Comments C-REACTIVE PROTEIN (BEAKER) (test 0.81 mg/dL 0.00-0.50 H code = 676) Manager Environmental Health And Safety ID - MACHELLE LCBC W/PLT COUNT & AUTO [id number] 02:54:00 Test Item Value Reference Range Interpretation [...] = 2801) RAD, CHEST, 1 VIEW, NON [id number] 22:40:00Reason for exam:->strokeShould this be performed at the bedside?->[facility] 1980 Sex: FFINAL REPORT RAD, CHEST, 1 VIEW, NON DEPT TECHNIQUE: Frontal view(s) of the chest. INDICATION: stroke. COMPARISON: 08/20/2018 chest radiograph FINDINGS/IMPRESSION: Lines/Tubes: Unchanged 2-lead pacemaker Lungs/pleura: No focal consolidation or definite interstitial pulmonary edema. No pleural effusion. No pneumothorax. Heart and Mediastinum: Unremarkable. Soft Tissues and Bones: Unremarkable. Signed: Wilmer Nieves Verified Date/Time: 02/10/2021 22:40:02 Reading Location: [address] Transitional Reading Room XR chest 1 view portable / [id number] 22:40:00Interface, External Ris In - 02/10/2021 10:42 [...] Nieves Verified Date/Time: 02/10/2021 22:40:02 Reading Location: [address] [facility] AUTO [id number] 22:16:00 Test Item Value Reference Range Interpretation [...] Range Interpretation Comments BNP (test code = 09407-5) <10 0-100 SOMMER (test code = SOMMER) Manager Environmental Health And Safety ID - BS Lab Interpretation (test Normal code = 53828-0) [facility] GardensB-TYPE NATRIURETIC FACTOR (BNP)2021-02-10 22:04:00 Test Item Value Reference Range Interpretation Comments B-TYPE NATRIURETIC PEPTIDE (BEAKER) < pg/mL 0-100 (test code = 700) Manager Environmental Health And Safety ID - BSHigh Sensitivity Troponin I ([facility]/[place] Only)2021-02-10 21:57:00 Test Item Value Reference Range Interpretation Comments Troponin I HS <4 See_Comment [Automated (test code = message] The 89617-3) system which generated this result transmitted reference range : <=17 pg/ml. The reference range was not used to interpret this result as normal/abnormal . SOMMER (test code = Manager Environmental Health And Safety ID - SOMMER) BSThe COOLING PIPE INSPECTOR STAT High Sensitivity Troponin-I results should be used in conjunction with other diagnostic information such as ECG, clinical observations and information, and patient symptoms to aid in the diagnosis of WI. Lab Interpretation Normal (test code = 02702-9) [facility] GardensHIGH SENSITIVITY TROPONIN [id number] 21:57:00 Test Item Value Reference Range Interpretation Comments HIGH SENSITIVITY < pg/ml See_Comment [Automated message] TROPONIN I (test code = The system which 6149273) generated this result transmitted ref erence range: <=17. Th e reference range was not used to interpr et this result as normal/abnormal . Manager Environmental Health And Safety ID - BSThe COOLING PIPE INSPECTOR STAT High Sensitivity Troponin-I results should be used in conjunctionwith other diagnostic information such as ECG, clinical observations and information, and patient symptoms to aid in the diagnosis of WI.Lipid [id number] 21:54:00 Test Item Value Reference Range Interpretation Comments Triglycerides (test 171 mg/dL Specimen code = 2571-8) markedly hemolyzed Cholesterol (test 218 mg/dL Specimen code = 2093-3) markedly hemolyzed HDL (test code = 47 mg/dL 5-9) LDL Calculated (test 137 mg/dL code = 35968-7) SOMMER (test code = Triglyceride SOMMER) Reference Range: Low Risk <150 Borderline 150-199 High Risk 200-499 Very High Risk >=500 Cholesterol Reference Range: Low Risk <200 Borderline 200-239 High Risk >240 HDL Cholesterol Reference Range: Low Risk >=60 High Risk <40 LDL Cholesterol Reference Range: Optimal <100 Near Optimal 100-129 Borderline 130-159 High 160-189 Very High >=190 Manager Environmental Health And Safety ID - BS [facility] GardensLIPID [id number] 21:54:00 Test Item Value Reference Range Interpretation [...] Borderline 130-159 High 160-189 Very High >=190 Manager Environmental Health And Safety ID - BSComprehensive metabolic [id number] 21:52:00 Test Item Value Reference Range Interpretation Comments Protein, Total 8.0 See_Comment Specimen slig htly (test code = hemolyzed 2885-2) [Automated message] The system which generated this result transmit aida reference range : 6.0 - 8.3 gm/dL . The reference range was not u sed to interpret th is result as normal/abnormal . Albumin (test code 4.2 g/dL 3.5-5 Specimen slightly = 20791-5) hemolyzed Alkaline 135 U/L 40-150 Phosphatase (test code = 6768-6) Total Bilirubin 0.2 mg/dL 0.2-1.2 Specimen sli ghtly (test code = hemolyzed 1974-2) Sodium (test code = 139 meq/L 336-972 0992-2) Potassium (test 4.5 meq/L 3.5-5.1 Specimen sli ghtly code = 2823-3) hemolyzed Chloride (test code 103 meq/L 98-107 = 2075-0) CO2 (test code = 25 meq/L -29 2027-9) BUN (test code = 9 mg/dL 7-21 3094-0) Creatinine (test 0.78 mg/dL 0.57-1.25 Specimen sl ightly code = 2160-0) hemolyzed Glucose (test code 105 mg/dL 70-105 = 2345-7) Calcium (test code 9.6 mg/dL 8.4-10.2 = 59170-0) AST (test code = 28 U/L 5-34 Specimen sl ightly 1920-8) hemolyzed ALT (test code = 52 U/L 6-55 Specimen ightly 1742-6) hemolyzed EGFR (test code = 82 mL/min/1.73 [place] [address]-8) NOT ACCURATE CREATININE CLEARANCE IN PREDICTING GLOMERULAR FILTRATION RATE . ESTIMATED GFR I S NOT APPLICABLE FOR DIALYSIS PATIEN TS. SOMMER (test code = Manager Environmental Health And Safety ID - BS SOMMER) [facility] GardensCreatine Kinase (CK)2021-02-10 21:52:00 Test Item Value Reference Range Interpretation Comments Total CK (test code = 70 U/L 29-200 7-6) SOMMER (test code = SOMMER) Manager Environmental Health And Safety ID - BS Lab Interpretation (test Normal code = 16004-8) [facility] GardensMAGNESIUM2021-05-19 21:52:00 Test Item Value Reference Range Interpretation Comments MAGNESIUM (BEAKER) 2.2 mg/dL 1.6-2.6 Specimen slightly (test code = 627) hemolyzed Manager Environmental Health And Safety ID - [id number] 21:52:00 Test Item Value Reference Range Interpretation Comments PHOSPHORUS (BEAKER) 4.4 mg/dL 2.3-4.7 Specimen slightly (test code = 604) hemolyzed Manager Environmental Health And Safety ID - BSCOMPREHENSIVE METABOLIC [id number] 21:52:00 Test Item Value Reference Range Interpretation [...] S NOT APPLICABLE FOR DIALYSIS PATIEN TS. Manager Environmental Health And Safety ID - BSCREATINE KINASE (CK)2021-02-10 21:52:00 Test Item Value Reference Range Interpretation Comments CREATINE KINASE TOTAL (BEAKER) (test 70 U/L 29-200 code = 380) Manager Environmental Health And Safety ID - [id number] 21:46:00 Test Item Value Reference Range Interpretation Comments PTT (test code = 51982-2) 30.5 See_Comment [ Automated message] The system The [employer] generated this result transmitted ref erence range: 22.5 - 3 6.0 seconds. The re ference range was not u sed to interpret this result as normal/abnor mal. Lab Interpretation (test Normal code = 67553-2) [facility] GardensLactic acid, [id number] 21:46:00 Test Item Value Reference Range Interpretation Comments Lactate, Venous (test 1.96 mmol/L 0.5-2.2 Specim en code = 2872) markedly hemolyzed SOMMER (test code = SOMMER) Manager Environmental Health And Safety ID - BS Lab Interpretation Normal (test code = 37100-3) [facility] GardensAPTT2021-05-19 21:46:00 Test Item Value Reference Range Interpretation Comments PARTIAL THROMBOPLASTIN TIME 30.5 seconds 22.5-36.0 (BEAKER) (test code = 760) LACTIC ACID, [id number] 21:46:00 Test Item Value Reference Range Interpretation Comments LACTATE BLOOD VENOUS 1.96 mmol/L 0.50-2.20 Specime n markedly (2) (BEAKER) (test hemolyzed code = 2872) Manager Environmental Health And Safety ID - BSProthrombin time/[id number] 21:45:00 Test Item Value Reference Interpretation Comments Range Protime (test code = 12.7 See_Comment [Autom ated 2302-2) message] The system which generated this result transmitted reference range : 11.9 - 14.2 seconds. The reference range was not used to interpret this result as normal/abnormal . INR (test code = 0.98 See_Comment [Automated 7721-6) message] The system which generated this result [...] valves. Lab Interpretation Normal (test code = 88291-2) [facility] Hawaiian GardensPROTHROMBIN TIME/[id number] 21:45:00 Test Item Value Reference Range Interpretation Comments PROTIME (BEAKER) 12.7 seconds 11.9-14.2 (test code = 759) INR (BEAKER) (test 0.98 See_Comment [Automat ed message] code = 370) The system [employer] generated this result transmitted ref erence range: <=5.90. The reference range was not used to int erpret this result as normal/abnormal . RECOMMENDED COUMADIN/WARFARIN INR THERAPY RANGESSTANDARD DOSE: 2.0 - 3.0 Includes: PROPHYLAXIS forvenous thrombosis, systemic embolization; TREATMENT for venous thrombosis and/or pulmonary embolus.HIGH RISK: Target INR is 2.5-3.5 for patients with mechanical heart valves.POC-Glucose [id number] 21:39:00 Test Item Value Reference Range Interpretation Comments POC-Glucose Meter (test 93 mg/dL 70-110 : TE STED AT [facility] code = 1538) [address] [facility] [facility], [address]: Manager Environmental Health And Safety/Techni rhonda ID = [id number] for AILYN JAVIER Lab Interpretation (test Normal code = 31557-9) [facility] GardensPOCT-GLUCOSE [id number] 21:39:00 Test Item Value Reference Range Interpretation Comments POC-GLUCOSE METER 93 mg/dL 70-110 : TESTED A T [facility] 6720 (ARNOL) (test code = AYLIN Rivera [facility], 1538) [address]: Manager Environmental Health And Safety/Techni rhonda ID = [id number] for GERTRUDE SHAY [id number] 15:45:00 Test Item Value Reference Range Interpretation Comments SURG (test code = SURG) RUN DATE: 09/30/20 [facility] PAGE 1 RUN TIME: 0485 Specimen Inquiry RUN USER: INTERFACE PATIENT: ADAM MARSH LOC: GA U #: [id number] AGE/SX: 40/F ROOM: RE09/29/20[facility] DR: Linus Boone MD : [birth year] BED: DIS: STATUS: [facility] T[facility]: SPEC #: [id number] RECD: 09/29/20 STATUS: MACIEL DEY #: [id number] WU: 09/29/20 [facility] DR: Linus Boone MD ENTERED: 09/29/20 SP TYPE: SURG OTHR DR: Undefined Provider ORDERED: SURG PATH LVL 4 COPIES TO: Linus Boone MD [address] [place] [address] Undefined Provider HISTOLOGY: TISSUE ID BLK PCS DHIRAJ LEV PROCEDURE DISPOSITION ____ ___ ___ ___ STOMACH, NOS A 1 2 PROCEDURES: SURG PATH LVL 4 (09/29/20) TISSUES: A. STOMACH, NOS - GASTRIC BIOPSY CLINICAL HISTORY R10.13, K21.9, K92.0, R14.0, R11.2, R19.7, R19.4 CPT CODES CPT CODE(S): 33114 , , , , , , FINAL DIAGNOSIS Stomach, biopsy: MILD CHRONIC GASTRITIS NEGATIVE FOR INTESTINAL METAPLASIA, DYSPLASIA, OR MALIGNANCY NEGATIVE FOR HELICOBACTER PYLORI ORGANISMS GROSS DESCRIPTION Gastric biopsy. Received in formalin are two wilkinson tissue fragments, 0.4 cm each, all as A. bk/nr Grossing performed at [facility] Pathology, [address] [facility], [address], [place] [address]. Ranch Supervisor: Aditya Hanson M.D. CONTINUED ON NEXT PAGE RUN DATE: 09/30/20 [facility] PAGE 2 RUN TIME: 1545 Specimen Inquiry RUN USER: INTERFACE SPEC #: [id number]:[id number] PATIENT: ADAM MARSH #[id number] (Continued) MICROSCOPIC DESCRIPTION Gastric biopsy. Sections demonstrate gastric mucosa with mild chronic inflammation. No dysplasia or malignancy is identified. No evidence of Helicobacter pylori organisms or intestinal metaplasia is seen. Signed SIGNATURE ON FILE Hector Issa 09/30/20 1545 END OF REPORT COVID 19 INHOUSE [id number] 13:41:00 Test Item Value Reference Range Interpretation Comments COVID 19 INHOUSE AG NEGATIVE Negative Per marino fulton, (test code = negative result s should [id number]) be treated aspr esumptive and, if inconsi [...] symptoms co nsistent with COVID-19. BASIC METABOLIC [id number] 13:40:00 Test Item Value Reference Range Interpretation [...] MG/DL 8.5-10.1 N - XR CHEST 1 [id number] 13:33:00 [facility] : 1980 Sex: F Name: ADAM MARSH [facility] : [birth year] Age/S: 40 / F [address] [facility] [place] Unit #: [id number] Loc: [place] [address] Phys: Linus Boone MD Acct: [id number] Dis Date: Status: [facility] PHONE #: [phone] Exam Date: 09/28/2020 1326 FAX #: Reason: PREOP EXAMS: CPT: [id number] XR CHEST 1 V 74128 Fluoro Time: DAP (Gy m2): Air Kerma [...] PAGE 1 Signed Report Name: ADAM MARSH [facility] : 1980 Age/S: 40 / F [address] [place] [address] [place] Unit #: [id number] Loc: [place] [id number] Phys: MelyLinus MD Acct: [id number] Dis Date: Status: PRE SDC PHONE #: [phone] Exam Date: 09/28/2020 1326 FAX #: Reason: PREOP EXAMS: CPT: [id number] XR CHEST 1 V 23565 Fluoro Time: DAP (Gy m2): Air Kerma (mGy): <Continued> Technologist: Shari Davila RT(R)(CT) Trnscb Date/Time: 09/28/2020 (249) 16 Orig Print D/T: S: 09/28/2020 (6572) PAGE 2 SignedReportPROTHROMBIN [id number] 13:29:00 Test Item Value Reference Range Interpretation Comments PT PATIENT (test code = PTP) 10.6 SECONDS 9.3-12.9 N INTERNATIONAL NORMAL RATIO 0.95 INR Unit 0.8-1.2 N (test code = INR) THROMBOPLASTIN TIME [id number] 13:29:00 Test Item Value Reference Range Interpretation Comments THROMBOPLASTIN TIME PARTIAL 28.0 SECONDS 26-35 N (test code = PTT) CBC W/AUTO [id number] 13:26:00 Test Item Value Reference Range Interpretation [...] code NO DIFF/SCN CRITERIA = MDIFF) POCT-GLUCOSE [id number] 10:22:00 Test Item Value Reference Range Interpretation Comments POC-GLUCOSE METER 102 mg/dL 70-110 TESTED AT [facility] 67 [facility] (test code = AYLIN [place] 1538) [address] MR, MRA, BRAIN, WITHOUT [id number] 09:32:00Reason for exam:->Ischemic Stroke EvaluationFINAL REPORT MRA Head CLINICAL HISTORY: Ischemic Stroke TECHNIQUE: MRA of the head utilizing 3-D fatn-cp-xfoczh technique, with 3-D reconstructions. COMPARISON: None FINDINGS: There is no evidence of intracranial aneurysm, focal stenosis, or major branch vessel occlusion. IMPRESSION: No evidence for a major [place] proximal branch vessel occlusion. MRA Neck CLINICAL HISTORY: Ischemic Stroke TECHNIQUE: MRA of the neck utilizing 2-D and 3-D gbud-oc-tgyswi technique, with 3-D reconstructions. COMPARISON: None FINDINGS: The carotid arteries in the neck are patent including their bifurcations. There is antegrade flow in the vertebral arteries in the neck. IMPRESSION: No evidence of hemodynamically significant stenosis in the cervical carotid or vertebral arteries by NASCET criteria. Signed: Santos Winn Verified Date/Time: 08/21/2018 09:32:09 Reading Location: [address] Neuro Reading Room MR, MRA, NECK, WITHOUT IV [id number] 09:32:00Reason for exam:->Ischemic Stroke EvaluationFINAL REPORT MRA Head CLINICAL HISTORY: Ischemic Stroke TECHNIQUE: MRA of the head utilizing 3-D ugve-iz-sdugxp technique, with 3-D reconstructions. COMPARISON: None FINDINGS: There is no evidence of intracranial aneurysm, focal stenosis, or major branch vessel occlusion. IMPRESSION: No evidence for a major [place] proximal branch vessel occlusion. MRA Neck CLINICAL HISTORY: Ischemic Stroke TECHNIQUE: MRA of the neck utilizing 2-D and 3-D jjrr-mo-oxoxmu technique, with 3-D reconstructions. COMPARISON: None FINDINGS: The carotid arteries in the neck are patent including their bifurcations. There is antegrade flow in the vertebral arteries in the neck. IMPRESSION: No evidence of hemodynamically significant stenosis in the cervical carotid or vertebral arteries by NASCET criteria. Signed: Santos Winn Verified Date/Time: 08/21/2018 09:32:09 Reading Location: [address] Neuro Reading Room MR, BRAIN, WITHOUT [id number] 09:25:00Reason for exam:- >Ischemic Stroke EvaluationFINAL REPORT [...] Winn Verified Date/Time: 08/21/2018 09:25:25 Reading Location: [facility] C013V [facility] POCT-GLUCOSE [id number] 21:26:00 Test Item Value Reference Range Interpretation Comments POC-GLUCOSE METER 119 mg/dL 70-110 H TESTED AT [place] [address] ([facility]) (test code = AYLIN Rivera [facility] 1538) [address] POCT-GLUCOSE [id number] 18:03:00 Test Item Value Reference Range Interpretation Comments POC-GLUCOSE METER 119 mg/dL 70-110 H TESTED AT [place] [address] ([facility]) (test code = [facility] Miguel [facility] 1538) [address] POCT-GLUCOSE [id number] 12:39:00 Test Item Value Reference Range Interpretation Comments POC-GLUCOSE METER 120 mg/dL 70-110 H TESTED AT [place] [address] ([facility]) (test code = AYLIN Rivera [facility] 1538) [address] RAD, CHEST, 1 VIEW, NON [id number] 12:04:00Reason for exam:->To Locate Heart Device (Pacemaker)Should [...] MDReport Verified Date/Time: 08/20/2018 12:04:06 Reading Location: [facility] Radiology Reading Room POCT-GLUCOSE [id number] 09:17:00 Test Item Value Reference Range Interpretation Comments POC-GLUCOSE METER 121 mg/dL 70-110 H TESTED AT [facility] 6720 (BEAKER) (test code = [facility] [place] 1538) [address] BASIC METABOLIC [id number] 06:56:00 Test Item Value Reference Range Interpretation [...] NOT APPLICABLE FOR DIALYSIS PATIEN TS. POCT-GLUCOSE [id number] 21:09:00 Test Item Value Reference Range Interpretation Comments POC-GLUCOSE METER 109 mg/dL 70-110 TESTED AT [facility] 6720 (BEAKER) (test code = [facility] 1538) [address] POCT-GLUCOSE [id number] 17:15:00 Test Item Value Reference Range Interpretation Comments POC-GLUCOSE METER 117 mg/dL 70-110 H TESTED AT [facility] 6720 (BEAKER) (test code = [facility] [place] 1538) [address] VITAMIN B12 AND [id number] 06:39:00 Test Item Value Reference Range Interpretation Comments VITAMIN B12 (BEAKER) (test code = 524 pg/mL 213-816 774) FOLATE (BEAKER) (test code = 362) 13.5 ng/mL >=7.0 BASIC METABOLIC [id number] 05:48:00 Test Item Value Reference Range Interpretation [...] S NOT APPLICABLE FOR DIALYSIS PATIEN TS. [id number] 15:42:00 Test Item Value Reference Range Interpretation Comments RPR SCREEN (BEAKER) (test code = Nonreactive Nonreactive 420) HEMOGLOBIN [id number] 09:14:00 Test Item Value Reference Range Interpretation Comments HEMOGLOBIN A1C (BEAKER) (test code = 5.3 % 4.3-6.1 368) TSH/FREE T4 IF [id number] 04:49:00 Test Item Value Reference Range Interpretation Comments THYROID STIMULATING HORMONE 3.18 uIU/mL 0.35-4.94 (BEAKER) (test code = 772) BASIC METABOLIC [id number] 04:38:00 Test Item Value Reference Range Interpretation [...] NOT APPLICABLE FOR DIALYSIS PATIEN TS. LIPID [id number] 04:38:00 Test Item Value Reference Range Interpretation [...] 130-159 High 160-189 Very High >=190HEPATIC FUNCTION [id number] 04:38:00 Test Item Value Reference Range Interpretation [...] (test code = 413) AFB Culture and [id number] 13:24:00Specimen/Source: Wound/PACEMAKERCollected: 09/05/2017 19:45 Status: Final Last Updated: 11/01/2017 13:24 SRZ-Cfqbf-Rrxxgiokwryx (Final) (Final) 09/07/17 No acid fast bacill seen on direct smear Culture Result (Final) (Final) 11/01/17 No growth of AFB at six (6) weeksFungus Culture with [id number] 12:12:00 Specimen/Source: Wound/PACEMAKERCollected: 09/05/2017 19:45 Status: Final Last Updated: 10/22/2017 12:12 Fungal Smear Result (Final) (Final) 09/06/17 No yeast or hyphae seen Culture Result (Final) (Final) 10/22/17 No fungus isolated at 6 weeksCulture, Blood [id number] 08:23:00Specimen: BloodCollected: 09/04/2017 20:30 Status: Final Last Updated: 09/10/2017 08:23 Culture Result (Final) (Final) No Growth After 5 DaysCulture, Blood [id number] 08:23:00Specimen: BloodCollected: 09/04/2017 20:15 Status: Final Last Updated: 09/10/2017 08:23 Culture Result (Final) (Final) No Growth After 5 DaysCulture, Wound [id number] 08:52:00Specimen: WoundCollected: 09/05/2017 19:45 Status: Final Last Updated: 09/08/2017 08:52 Gram Stain (Final) (Final) 09/06/17 No organisms seen, Few WBC's Culture Result (Final) (Final) 09/08/17 Anaerobic culture:No anaerobes isolated at 3 days Isolate (Final) (Final) 09/07/17Few Staph-coag positive Isolate Staph-coag positive JERMAINE (mcg/ml) Amoxicillin/Clav (AUG)<=4/2 Susceptible Ampicillin (AM) >8 Resistant Ampicillin/Sulb (A/S) <=8/4 Susceptible Cefazolin (CFZ) <=4 Susceptible Ceftriaxone (MEDIA COORDINATOR) <=4 Susceptible Chloramphenicol (C) <=8 Susceptible Ciprofloxacin (CP) <=1 Susceptible Clindamycin (CM) 0.5 Susceptible Erythromycin (E) <=0.25 Susceptible Gentamicin (GM) <=1 Susceptible Imipenem (IMP) <=4 Susceptible Levofloxacin (LEV) <=0.5 Susceptible Linezolid (LNZ) 4 Susceptible Oxacillin (OX1) 0.5 Susceptible Penicillin (P) >8 Resistant Rifampin (RA) <=1 Susceptible Tetracycline (TE) <=1 Susceptible Trimethoprim/Sulfa <=0.5/9.Susceptible (SXT) 5 Vancomycin (VA) 2 SusceptibleRenal [id number] 08:51:00 Test Item Value Reference Range Interpretation [...] National Kidney Foundation,http :[email or web address] ep.nih.gov CBC with [id number] 07:39:00 Test Item Value Reference Range Interpretation [...] code = ALYMPH) 1.7 K/cumm 0.5-4.6 N Frederick Abs (test code = AMONO) 0.3 K/cumm 0.0-1.2 N Eos Abs (test code = AEOS) 0.29 K/cumm 0.00-0.74 N Baso Abs (test code = ABASO) 0.0 K/cumm 0.00-0.21 N Vancomycin, [id number] 12:33:00 Test Item Value Reference Range Interpretation Comments Vanco, Trou (test code = VANTR) 7.9 ug/mL 10.0-20.0 L Magnesium, [id number] 06:37:00 Test Item Value Reference Range Interpretation Comments Magnesium (test code = MG) 2.4 mg/dL 1.7-2.5 N Renal [id number] 06:29:00 Test Item Value Reference Range Interpretation [...] National Kidney Foundation,http ://nkd ep.nih.gov BHCG, Serum, [id number] 06:26:00 Test Item Value Reference Range Interpretation Comments Preg Qual [Se] (test code = BSHCG) Negative Negative N CBC with [id number] 06:24:00 Test Item Value Reference Range Interpretation [...] code = ALYMPH) 1.6 K/cumm 0.5-4.6 N Frederick Abs (test code = AMONO) 0.4 K/cumm 0.0-1.2 N Eos Abs (test code = AEOS) 0.18 K/cumm 0.00-0.74 N Baso Abs (test code = ABASO) 0.0 K/cumm 0.00-0.21 N XR CHEST 1 [id number] 16:29:55XR CHEST 1 VIEWLOCATION: [id number]: None.INDICATION: REVIEW PICC LINE PLACEMENTDISCUSSION:AP chest and [...] code = TSH) 3.44 mIU/mL 0.270-4.200 N Basic Metabolic [id number] 05:47:00 Test Item Value Reference Range Interpretation [...] is not provided , and the patient isReny can, multiply by 1.2 12. If sex [...] the National Kidney Foundation,http ://nkd ep.nih.gov Magnesium, [id number] 05:47:00 Test Item Value Reference Range Interpretation Comments Magnesium (test code = MG) 2.3 mg/dL 1.7-2.5 N Lipid [id number] 05:47:00 Test Item Value Reference Range Interpretation Comments Cholesterol (test 160 mg/dL 0-200 N code = CHOL) Triglycerides (test 126 mg/dL 9-200 N code = TRIG) HDL (test code = 35 mg/dL 50-60 L HDL) Chol/HDL (test code 4.6 Ratio 0.0-4.4 H = CHOLPHDL) LDL, Calculated 100 0-130 N (NOTE)RISK O F HEART (test code = LDLC) DISEASEPu blished by Indonesian Heart AssociationAnal yte Optim al Boderline Increased RiskC HOL <200 200-239 >240TRI G <150 150-199 >200HDL Male: >60 <40HDL Female: >60 <50 LDL < 100 130-15 9 >160 LDL NEAR OPTIMAL IS 100- 129 VLDL (test code = 25 mg/dL 5-40 N VLDL) LDL/HDL (test code = 3 LDLPHDL) CBC with [id number] 05:36:00 Test Item Value Reference Range Interpretation [...] code = ALYMPH) 2.2 K/cumm 0.5-4.6 N Frederick Abs (test code = AMONO) 0.3 K/cumm 0.0-1.2 N Eos Abs (test code = AEOS) 0.24 K/cumm 0.00-0.74 N Baso Abs (test code = ABASO) 0.0 K/cumm 0.00-0.21 N Partial Thromboplastin [id number] 21:26:00 Test Item Value Reference Range Interpretation Comments aPTT (test code = PTT) 29.00 seconds 24.39-37.25 N Prothrombin [id number] 21:26:00 Test Item Value Reference Range Interpretation Comments PT (test code = PT) 10.70 seconds 9.78-13.35 N INR (test code = INR) 0.95 Ratio 0.6-1.2 N Comprehensive Metabolic [id number] 21:23:00 Test Item Value Reference Range Interpretation [...] National Kidney Foundation,http ://nkd ep.nih.gov CBC with [id number] 21:16:00 Test Item Value Reference Range Interpretation [...] code = ALYMPH) 2.2 K/cumm 0.5-4.6 N Frederick Abs (test code = AMONO) 0.4 K/cumm 0.0-1.2 N Eos Abs (test code = AEOS) 0.17 K/cumm 0.00-0.74 N Baso Abs (test code = ABASO) 0.1 K/cumm 0.00-0.21 N
--- NOTE | 2021-09-29 12:45 | RAD REPORT ---
EXAM DESCRIPTION: [facility] Single View09/29/2021 12:34 pm CLINICAL HISTORY: Chest pain COMPARISON: June 2021 FINDINGS: The lungs appear clear of acute infiltrate. The heart is normal size. Pacemaker leads are place. IMPRESSION: No acute abnormalities displayed
[2021-09-29] MEDS ORDERED: FENTANYL CITR 100 MCG/2 ML ONE (14:17)
[2021-09-29] MEDS ORDERED: ONDANSETRON 4 MG/2 ML VIAL ONE (14:17)
[2021-09-29 14:42] LABS: Hematocrit 43.2 % (36.0-45.0); Lymphocytes % 24.1 % (15.3-44.8); MPV 8.5 fL (7.6-11.3); Protime INR 0.96; RBC Red Blood Cell Count 5.05 M/uL (3.86-4.86)
[2021-09-29 14:56] LABS: BUN Blood Urea Nitrogen 9 mg/dL (7-18); Bicarbonate 28 mmol/L (21-32); Glucose Level 92 mg/dL (74-106); Sodium Level 141 mmol/L (136-145)
[2021-09-29 15:15] LABS: ALT/SGPT 29 U/L (12-78); Albumin 3.8 g/dL (3.4-5.0); Alkaline Phosphatase 122 U/L (45-117); Bilirubin Direct < 0.1 mg/dL (0-0.2); Bilirubin Total 0.3 mg/dL (0.2-1.0); NT PRO-BNP 39 pg/mL (<125); Protein, Total 8.1 g/dL (6.4-8.2); Troponin (Emerg Dept Use Only) < 0.02 ng/mL (0.0-0.045)
[2021-09-29 15:18] LABS: AST/SGOT 21 U/L (15-37); Magnesium 2.4 mg/dL (1.8-2.4); Potassium 3.8 mmol/L (3.5-5.1)
[2021-09-29 15:21] LABS: SARS-COV-2 RT PCR NEGATIVE (NEGATIVE)
--- NOTE | 2021-09-29 16:45 | ER ---
Nurse's Notes [facility] Name: Jenni Draper Age: 41 yrs Sex: Female : 1980 Arrival Date: 09/29/2021 Time: 11:30 Bed 14 Private MD: Diya Mora Atiq Diagnosis: Chest pain, unspecified;Acute upper respiratory infection, unspecified Presentation: 09/29 12:04 Chief complaint: Patient states: Chest pain going down my left arm and SOB. It has been ld1 hurting since 10 this morning. My cough and congestion is worse. Coronavirus screen: Client presents with at least one sign or symptom that may indicate coronavirus-19. Standard/surgical mask placed on the client. Ebola Screen: No symptoms or risks identified at this time. Initial Sepsis Screen: Does the patient meet any 2 criteria? No. Patient's initial sepsis screen is negative. Does the patient have a suspected source of infection? No. Patient's initial sepsis screen is negative. Risk Assessment: Do you want to hurt yourself or someone else? Patient reports no desire to harm self or others. Onset of symptoms was September 29, 2021. 12:04 Method Of Arrival: Wheelchair ld1 12:04 Acuity: LYUBOV 2 ld1 Triage Assessment: 12:06 General: Appears in no apparent distress. comfortable, Behavior is calm, cooperative, ld1 appropriate for age. Pain: Complains of pain in left breast Pain radiates to left arm Quality of pain is described as stabbing, Pain began 2-3 days ago. Cardiovascular: Capillary refill < 3 seconds Patient's skin is warm and dry. Respiratory: Airway is patent Respiratory effort is even, unlabored, Respiratory pattern is regular, symmetrical. 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 LMP N/A - Hysterectomy ld1 Historical: - Allergies: 12:06 Adhesives; ld1 12:06 Aspirin; ld1 12:06 Bactrim; ld1 12:06 Benadryl; ld1 12:06 cefixime; ld1 12:06 Cipro IV; ld1 12:06 Clindamycin; ld1 12:06 coconut oil; ld1 12:06 Demerol; ld1 12:06 Detrol; ld1 12:06 Diltiazem; ld1 12:06 Doxycycline; ld1 12:06 FISH PRODUCT DERIVATIVES; ld1 12:06 GABAPENTIN; ld1 12:06 Iodine; ld1 12:06 ivabradine; ld1 12:06 Latex, Natural Rubber; ld1 12:06 Levofloxacin; ld1 12:06 Morphine; ld1 12:06 PENICILLINS; ld1 12:06 quetiapine; ld1 12:06 Sulfa (Sulfonamide Antibiotics); ld1 12:06 Seroquel; ld1 12:06 Suprax; ld1 12:06 tolterodine; ld1 12:06 tramadol; ld1 - PMHx: 12:06 Anxiety; Asthma; Atrial Fib; Bipolar disorder; Bronchitis; CHF; mitral valve prolapse; ld1 - PSHx: 12:06 Cholecystectomy; hysterectomy; left shoulder; right hand; ld1 - Immunization history:: Adult Immunizations up to date, Client reports receiving the 2nd dose of the Covid vaccine, moderna. - Social history:: Smoking status: Patient denies any tobacco usage or history of. Patient/guardian denies using alcohol, street drugs. Screenin:42 Abuse screen: Denies threats or abuse. Denies injuries from another. Nutritional cb5 screening: No deficits noted. Tuberculosis screening: No symptoms or risk factors identified. Fall Risk None identified. Assessment: 12:33 General: Appears in no apparent distress. comfortable, well developed, Behavior is cb5 calm, cooperative, appropriate for age. Pain: Complains of pain in chest Pain does not radiate. Pain. 12:41 Pain:. Neuro: No deficits noted. 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 Respiratory: Denies shortness of breath. GI: No deficits noted. : No deficits noted. EENT: No deficits noted. 14:00 Reassessment: No changes from previously documented assessment. Patient and/or family jh6 updated on plan of care and expected duration. Pain level reassessed. Patient is alert, oriented x 3, equal unlabored respirations, skin warm/dry/pink. 15:04 Reassessment: Patient and/or family updated on plan of care and expected duration. Pain jh6 level reassessed. Patient states feeling better. Pain: Complains of pain in chest Pain currently is 4 out of 10 on a pain scale. Quality of pain is described as sharp, Alleviated by medications. Cardiovascular: Reports chest pain. 16:20 Reassessment: Patient and/or family updated on plan of care and expected duration. Pain jh6 level reassessed. Patient denies pain at this time. Patient states feeling better. Patient states symptoms have improved. 16:20 Pain: Denies pain. jh6 16:45 Reassessment: Patient and/or family updated on plan of care and expected duration. Pain jh6 level reassessed. pt states that she is not wanting to stay for another troponin test and that she is feeling much better. provider advised and he is to speak with her about d/c. Vital Signs: 12:04 BP 121 / 98; Pulse 118; Resp 18; Temp 98.4(O); Pulse Ox 100% on R/A; Weight 54.43 kg; ld1 Height 4 ft. 11 in. (149.86 cm); Pain 9/10; 14:00 BP 124 / 86; Pulse 94; Resp 17; Pulse Ox 99% ; jh6 16:00 BP 123 / 82; Pulse 64; Resp 17; Pulse Ox 100% ; Pain 2/10; jh6 17:10 BP 118 / 64; Pulse 86; Resp 17; Pulse Ox 100% ; Pain 0/10; jh6 12:04 Body Mass Index 24.24 (54.43 kg, 149.86 cm) ld1 Vitals: 14:00 Cardiac Rhythm Assessment Regular Sinus rhythm. jh6 16:00 Cardiac Rhythm Assessment Regular. jh6 ED Course: 11:30 Patient arrived in ED. mr 11:30 Diya Mora MD is Private Physician. mr 12:06 Triage completed. ld1 12:06 Arm band placed on right wrist. ld1 12:10 Zurdo Prasad NP is PHCP. pm1 12:10 Tanner Robbins MD is Attending Physician. pm1 12:19 Christa Lion, LAUREL is Primary Nurse. cb5 12:34 XRAY Chest (1 view) In Process Unspecified. EDMS 12:42 No provider procedures requiring assistance completed. cb5 12:43 Patient has correct armband on for positive identification. Allergy band placed. 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 Pulse ox on. 12:45 Oxygen administration via nasal cannula \T\ 2L/min. cb5 12:47 Missed attempt(s): 22 gauge in left forearm. Bleeding controlled, band aid applied, tp1 catheter tip intact. 13:36 Basic Metabolic Panel Sent. cb5 17:15 IV discontinued, intact, bleeding controlled, No redness/swelling at site. Pressure jh6 dressing applied. Administered Medications: 13:36 Not Given (pt requesting later if she is having painn): fentaNYL (PF) 50 mcg IVP once; cb5 RASS on ADMIN: Combtv4, Very Agttd3, Agttd2, Rstlss1, AlertClm0, Drwsy-1, Lt Sdtn-2, Mod Sdtn-3, Dp Sdtn-4, UnArsble-5 13:36 Not Given (pt wants later when neededd): Zofran (Ondansetron) 4 mg IVP once; over 2 cb5 minutes 14:15 Drug: Zofran (Ondansetron) 4 mg Route: IVP; Site: right upper arm; [facility] 15:07 Follow up: Response: Nausea is decreased [facility] 14:35 Drug: fentaNYL (PF) 50 mcg Route: IVP; Site: right upper arm; 6 15:07 Follow up: Response: Pain is decreased [facility] Outcome: 16:44 Discharge ordered by MD. pm1 17:15 Discharged to home ambulatory. [facility] 17:15 Condition: improved 17:15 Discharge instructions given to patient, Instructed on discharge instructions, follow up and referral plans. Demonstrated understanding of instructions, follow-up care, medications, Prescriptions given X 2. 17:37 Patient left the ED. [facility] Signatures: Dispatcher [employer] WILLYNM BedoyaAilyn díaz ShaniceZurdo, SUPERVISOR CHLORINE LIQUEFACTION SUPERVISOR CHLORINE LIQUEFACTION pm1 Kati Hardwick, RN RN ld1 Leny Shelley RN RN jh6 Sherry Kong tp1 Christa Lion, RN RN cb5
--- NOTE | 2021-09-29 16:45 | EDPHYS ---
Physician Documentation [facility] Name: Jenni Draper Age: 41 yrs Sex: Female : 1980 Arrival Date: 09/29/2021 Time: 11:30 Bed 14 Private MD: Diya Mora Atiq ED Physician Tanner Robbins HPI: 09/29 12:26 This 41 yrs old Female presents to ER via Wheelchair with complaints of Chest Pain, pm1 Shortness Of Breath. 12:26 The patient or guardian reports chest pain that is located primarily in the anterior pm1 aspect of left upper chest. Onset: this morning, at 10:00. The pain radiates to the left arm. Associated signs and symptoms: Pertinent positives: cough, shortness of breath, Pertinent negatives: abdominal pain, diaphoresis, dizziness, headache, nausea, vomiting. The chest pain is described as sharp. Duration: The patient or guardian reports a single episode, that is still ongoing. Modifying factors: The symptoms are alleviated by nothing. the symptoms are aggravated by nothing. Severity of pain: in the emergency department the pain is unchanged. The patient has not recently seen a physician. Patient reports exposure to covid positive family members. 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 LMP N/A - Hysterectomy ld1 Historical: - Allergies: 12:06 Adhesives; ld1 12:06 Aspirin; ld1 12:06 Bactrim; ld1 12:06 Benadryl; ld1 12:06 cefixime; ld1 12:06 Cipro IV; ld1 12:06 Clindamycin; ld1 12:06 coconut oil; ld1 12:06 Demerol; ld1 12:06 Detrol; ld1 12:06 Diltiazem; ld1 12:06 Doxycycline; ld1 12:06 FISH PRODUCT DERIVATIVES; ld1 12:06 GABAPENTIN; ld1 12:06 Iodine; ld1 12:06 ivabradine; ld1 12:06 Latex, Natural Rubber; ld1 12:06 Levofloxacin; ld1 12:06 Morphine; ld1 12:06 PENICILLINS; ld1 12:06 quetiapine; ld1 12:06 Sulfa (Sulfonamide Antibiotics); ld1 12:06 Seroquel; ld1 12:06 Suprax; ld1 12:06 tolterodine; ld1 12:06 tramadol; ld1 - PMHx: 12:06 Anxiety; Asthma; Atrial Fib; Bipolar disorder; Bronchitis; CHF; mitral valve prolapse; ld1 - PSHx: 12:06 Cholecystectomy; hysterectomy; left shoulder; right hand; ld1 - Immunization history:: Adult Immunizations up to date, Client reports receiving the 2nd dose of the Covid vaccine, moderna. - Social history:: Smoking status: Patient denies any tobacco usage or history of. Patient/guardian denies using alcohol, street drugs. ROS: 12:26 Constitutional: Negative for fever, chills, and weight loss, Neck: Negative for injury, pm1 pain, and swelling. 12:26 Abdomen/GI: Negative for abdominal pain, nausea, vomiting, diarrhea, and constipation, Back: Negative for injury and pain, MS/Extremity: Negative for injury and deformity, Skin: Negative for injury, rash, and discoloration, Neuro: Negative for headache, weakness, numbness, tingling, and seizure. 12:26 Cardiovascular: Positive for chest pain, Negative for edema, palpitations. 12:26 Respiratory: Positive for cough, shortness of breath. 12:26 All other systems are negative. Exam: 12:26 Constitutional: This is a well developed, well nourished patient who is awake, alert, pm1 and in no acute distress. Head/Face: Normocephalic, atraumatic. 12:26 Skin: Warm, dry with normal turgor. Normal color with no rashes, no lesions, and no evidence of cellulitis. MS/ Extremity: Pulses equal, no cyanosis. Neurovascular intact. Full, normal range of motion. 12:26 Chest/axilla: Inspection: normal, Palpation: crepitus, is not appreciated, tenderness, that is moderate, of the anterior aspect of left upper chest, that totally reproduces the patient's complaints. 12:26 Cardiovascular: Exam negative for acute changes, Rate: normal, Rhythm: regular, Pulses: no pulse deficits are appreciated, Heart sounds: normal, normal S1and S2, Edema: is not appreciated. 12:26 Respiratory: Exam negative for acute changes, respiratory distress, shortness of breath, Breath sounds: are clear throughout. 12:26 Abdomen/GI: Exam negative for acute changes, Inspection: abdomen appears normal, Palpation: abdomen is soft and non-tender, in all quadrants. 12:26 Neuro: Exam negative for acute changes, Orientation: is normal, Mentation: is normal, Motor: is normal, moves all fours. Vital Signs: 12:04 BP 121 / 98; Pulse 118; Resp 18; Temp 98.4(O); Pulse Ox 100% on R/A; Weight 54.43 kg; ld1 Height 4 ft. 11 in. (149.86 cm); Pain 9/10; 14:00 BP 124 / 86; Pulse 94; Resp 17; Pulse Ox 99% ; jh6 16:00 BP 123 / 82; Pulse 64; Resp 17; Pulse Ox 100% ; Pain 2/10; jh6 17:10 BP 118 / 64; Pulse 86; Resp 17; Pulse Ox 100% ; Pain 0/10; jh6 12:04 Body Mass Index 24.24 (54.43 kg, 149.86 cm) ld1 MDM: 12:10 Patient medically screened. pm1 16:31 Data reviewed: vital signs. Data interpreted: Pulse oximetry: on room air is 100 %. pm1 Interpretation: normal. 16:37 Refusal of service: The patient/guardian displays adequate decision making capability pm1 and despite a detailed discussion of alternatives, benefits, risks, and consequences refuses: Repeat Troponin. Patient reports she is hungry, and is currently symptom free. She and her were primarily concerned about covid exposure at home and her cough, and essentially just wanted a covid test. I stressed the importance of a repeat troponin and she understands the risks of going home without it. . 17:59 ED course: PMPAware reviewed. pm1 09/29 12:21 Order name: Basic Metabolic Panel pm09/29 12:21 Order name: CBC with Diff; Complete Time: 15:10 pm09/29 12:21 Order name: LFT's; Complete Time: 15:20 pm09/29 12:21 Order name: Magnesium; Complete Time: 15:20 pm09/29 12:21 Order name: NT PRO-BNP; Complete Time: 15:20 pm09/29 12:21 Order name: PT-INR; Complete Time: 15:10 pm09/29 12:21 Order name: Troponin (emerg Dept Use Only); Complete Time: 15:20 pm09/29 12:21 Order name: XRAY Chest (1 view); Complete Time: 12:59 pm1 09/29 12:21 Order name: Basic Metabolic Panel; Complete Time: 15:20 EDMS 09/29 13:30 Order name: COVID-19/FLU A+B (Document "Date of Onset" if Symptomatic); Complete Time: pm1 15:27 09/29 16:31 Order name: Troponin (emerg Dept Use Only) pm1 09/29 12:21 Order name: EKG; Complete Time: 12:22 pm1 09/29 12:21 Order name: Cardiac monitoring; Complete Time: 12:46 pm1 09/29 12:21 Order name: EKG - Nurse/Tech; Complete Time: 12:46 pm1 09/29 12:21 Order name: IV Saline Lock; Complete Time: 14:58 pm1 09/29 12:21 Order name: Labs collected and sent; Complete Time: 14:58 pm1 09/29 12:21 Order name: O2 Per Protocol; Complete Time: 12:46 pm1 09/29 12:21 Order name: O2 Sat Monitoring; Complete Time: 12:46 pm1 09/29 13:18 Order name: Labs - recollect needed; Complete Time: 14:58 mh5 Administered Medications: 13:36 Not Given (pt requesting later if she is having painn): fentaNYL (PF) 50 mcg IVP once; cb5 RASS on ADMIN: Combtv4, Very Agttd3, Agttd2, Rstlss1, AlertClm0, Drwsy-1, Lt Sdtn-2, Mod Sdtn-3, Dp Sdtn-4, UnArsble-5 13:36 Not Given (pt wants later when neededd): Zofran (Ondansetron) 4 mg IVP once; over 2 cb5 minutes 14:15 Drug: Zofran (Ondansetron) 4 mg Route: IVP; Site: right upper arm; [facility] 15:07 Follow up: Response: Nausea is decreased [facility] 14:35 Drug: fentaNYL (PF) 50 mcg Route: IVP; Site: right upper arm; 6 15:07 Follow up: Response: Pain is decreased [facility] Disposition: 18:03 Co-signature as Attending Physician, Tanner Robbins MD. rn Disposition Summary: 09/29/21 16:44 Discharge Ordered Location: Home pm1 Problem: new pm1 Symptoms: have improved pm1 Condition: Undetermined pm1 Diagnosis - Chest pain, unspecified pm1 - Acute upper respiratory infection, unspecified pm1 Followup: pm1 - With: Emergency Department - When: As needed - Reason: Worsening of condition Followup: pm1 - With: Private Physician - When: 2 - 3 days - Reason: Recheck today's complaints, Continuance of care, Re-evaluation by your physician Discharge Instructions: - Discharge Summary Sheet pm1 - Nonspecific Chest Pain, Adult pm1 - Upper Respiratory Infection, Adult pm1 Forms: - Medication Reconciliation Form pm1 - Thank You Letter pm1 - Antibiotic Education pm1 - Prescription Opioid Use pm1 Prescriptions: - Medrol (Juliocesar) 4 mg Oral Tablets, Dose Pack - take 1 tablet by ORAL route as directed - follow package instructions; 1 pm1 packet; Refills: 0, Product Selection Permitted - Guaifenesin AC 10-100 mg/5 mL Oral Liquid - take 10 milliliters by ORAL route every 4 hours As needed; 240 milliliter; pm1 Refills: 0, Product Selection Permitted Signatures: Dispatcher [employer] EDTanner Carpenter MD MD rn Marinas, Patrick, NP GLAUCOMA SPECIALIST pm1 Lyndsay Rodriguez 5 Kati Hardwick RN RN ld1 Leny Shelley RN RN jh6 Christa Lion RN cb5
[2021-09-29 18:01] VITALS: TEMP 98.4
[2021-09-29 18:04] VITALS: O2SAT 100
[2021-09-29 18:06] VITALS: BP 118/64
== END 2021-09-29 17:37 | disposition home or self-care (01) ==
LOC: ER 11:27
DX: J06.9 Acute upper respiratory infection, unspecified (principal); Z20.822 Contact with and (suspected) exposure to COVID-19; Z88.1 Allergy status to other antibiotic agents
CPT/HCPCS: 93005; 85025; 80048; 36415; 83735; 85610; 80076; 84484; 83880; 0240U; 71045; 96375; 96374; 99285; J3010; J2405

== ENCOUNTER 2021-11-07 01:53 | Emergency (ER) | payer OTHER ==
--- OUTSIDE RECORDS SUMMARY | 2021-11-07 02:02 | XMS REPORT | Continuity of Care Document ---
:1980 Author Organization [facility] t Address [address] [place] [address] Care Team Providers Name Role Phone MIMA VELAZQUEZ Primary Care Physician Unavailable ZAKIA VERA Attending Clinician Unavailable Shauna Bonoe Attending Clinician Unavailable AMOS Attending Clinician Unavailable Amos LARSEN Attending Clinician Conner LARSEN Attending Clinician STEFFANIE Attending Clinician Unavailable STEFFANIE Attending Clinician Unavailable Doctor Unassigned, Name Attending Clinician Unavailable Steffanie VEGA Attending Clinician Omari RALPH Attending Clinician Unavailable Antonio LARSEN, TMariia Attending Clinician Cici LARSEN, Andrea Attending Clinician Sho LARSEN Attending Clinician Zakia Vera MD Attending Clinician Unavailable LEONOR Attending Clinician Unavailable LINETTE Attending Clinician Unavailable ZAKIA VERA Admitting Clinician Unavailable STEFFANIE Admitting Clinician Unavailable SHO Admitting Clinician Unavailable LEONOR Admitting Clinician Unavailable LINETTE Admitting Clinician Unavailable Payers Payer Name Policy Type Policy Number Effective Expiration Source Date Date GENERIC MEDICAID HMO [id number] 2011 00:00:00 [facility] [id number] 2011 MEDICAID 00:00:00 [facility] [id number] 2011 Met panda STAR+PLUS [id number] [place] [id number] [address] [facility] MEDICAIDMEDICAID 00:00:00 - Medica l [id number] 018-Present Problems Condition Condition Condition Status Onset Resolution Last Treating Co mments Source Name Details Category Date Date Treatment Clinician Date Elevated Elevated Disease Active Unive rs d-dimer d-dimer 7- ity of 00:00: [address] Left-sided Left-sided Disease Active [facility] weakness weakness 02-12 [facility] 00 Center Received Received Disease [facility] - plasminoge plasminoge 00:00: Me dical n n 00 Center activator activator (t-PA) (t-PA) less than less than 24 hours 24 hours prior to prior to arrival arrival Acute Acute Disease Active [facility] ischemic ischemic 5-20 [facility] - stroke stroke 00:00: Medical 00 [place] Chest pain Chest pain Disease Active U nivers 4-20 ity of 00:00: [place] 00 [facility] Inappropri Inappropri Disease Active 2019-09 U nivers ate sinus ate sinus 1-04 ity of tachycardi tachycardi [place] [facility] Functional Functional Disease Active 2020- U nivers neurologic neurologic 8-18 it y of al symptom al symptom [place] disorder disorder 00 Medica l with with Branch weakness weakness or or paralysis paralysis Syncope Syncope Disease Active 2020- Univers 2-04 ity of 00:00: [place] 00 [facility] PVT PVT Disease Active Univers (paroxysma (paroxysma 2-04 it y of l l 00:00: [place] ventricula ventricula 00 Me dical r r Branch tachycardi tachycardi a) a) Digoxin Digoxin Disease Active Univers toxicity toxicity 2-04 ity of 00:00: [place] [facility] Atrial Atrial Disease Active Univers fibrillati fibrillati 2-04 it y of on on 00:00: [place] 00 [facility] Dyspnea Dyspnea Disease Active 2019 Univers 2-01 ity of 00:00: [place] 00 [facility] Seizure Seizure Disease Active 2018-09 Univers disorder disorder 2-01 ity of 00:00: [place] 00 [facility] Mitral Mitral Disease Active 2019 Univers valve valve 8-05 ity of regurgitat regurgitat 00:[place] 00 [facility] Excessive Excessive Disease Active Uni vers anticoagul anticoagul 8-05 it y of ation ation 00:00: [place] 00 [facility] Deep vein Deep vein Disease Active 2019 Uni vers thrombosis thrombosis 8-05 it y of of lower of lower 00:00: [place] extremity extremity 00 [facility] Anxiety Anxiety Disease Active 2019 Univers disorder disorder 8-05 ity of 00:00: [place] 00 [facility] Asthma Asthma Disease Active 2019- Univers 8-05 ity of 00:00: [place] 00 Medical Branch E44.0 E44.0 Disease Active 2019- Univers Moderate Moderate 5-15 ity of protein protein 00:00: [place] calorie calorie 00 Medical malnutriti malnutriti Br anch on on Paresthesi Paresthesi Disease Active 2017-[address] a of left a of left 1 Luke s - arm and arm and 00:00: Medical leg leg 00 [place] Dysphagia Dysphagia Disease Active 2017-09 Uni vers 1-09 ity of 00:00: [place] 00 Medical Branch Iron Iron Disease Active 2017-09 Overview: Univer s deficiency deficiency 0-19 Formattin ity of anemia, anemia, 00:00: g of this [place] unspecifie unspecifie 00 note Me dical d iron d iron might be Branch deficiency deficiency different anemia anemia from the type type original. Added automatic ally from request for surgery [id number] Abdominal Abdominal Disease Active 2017-09 Overview: Univers pain, pain, 0-19 Formattin ity of unspecifie unspecifie 00:00: g of this [place] d d 00 note Medical abdominal abdominal might be Br anch location location different from the original. Added automatic ally from request for surgery [id number] Nausea and Nausea and Disease Active 2017-09 Overview : Univers vomiting, vomiting, 0-19 Formattin i ty of intractabi intractabi 00:00: g of this [place] lity of lity of 00 note Medical vomiting vomiting might be Bran ch not not different specified, specified, from the unspecifie unspecifie original. d vomiting d vomiting Added type type automatic ally from request for surgery [id number] Non-cardia Non-cardia Disease Active U jayden c chest c chest 8- ity of pain pain 00:00: [place] [facility] Essential Essential Disease Active Uni vers hypertensi hypertensi 8- it y of on on 00:00: Medical Branch Pacemaker Pacemaker Disease Active Uni vers 8-03 ity of 00:00: [place] [facility] PAF PAF Disease Active Univers (paroxysma (paroxysma 8 it y of l atrial l atrial 00:00: [place] fibrillati fibrillati 00 Me dical on) on) Branch History of History of Disease Active 2016-09 U jayden cardiac cardiac 1-29 ity of pacemaker pac[place] 00:[place] situ 00 [facility] Tachycardi Tachycardi Disease Active U yossiers a, a, 9- ity of unspecifie unspecifie 00:[place] [facility] Elevated Elevated Disease Active 2013-09 Unive rs liver liver 0-29 ity of enzymes enzymes 00:00: [place] [facility] Pseudoseiz Pseudoseiz Disease Active U jayden ure ure 7-22 ity of 00:00: [place] [facility] Left sided Left sided Disease Active U jayden numbness numbness 6-28 ity of 00:00: [place] 00 [facility] Prediabete Prediabete Disease Active 2012-09 U nivers s s 2- ity of 00:00: Medical Branch Loss of Loss of Disease Active 2012-09 Univers weight weight 2- ity of 00:00: 00 Medical Branch Hypothyroi Hypothyroi Disease Active 2012-09 Overview : Univers dism dism Formattin ity of 00:00: g of this note Medical might be Branch different from the original. ICD10 Diagnosis Term [employer] Professional Utility Hypoglycem Hypoglycem Disease Active 2012-09 Overview : Univers ia ia 10-21 Formattin ity of 00:00: g of this note Medical might be Branch different from the original. ICD10 Diagnosis Term [employer] Cerebrovas Cerebrovas Disease Resolve 2021-02-12 2021-02-12 [...] ONE INGREDI 9-10 ity of 00:00: [place] 00 Medical Branch Penicill DA Active SV [facility] ins 1-04 [place] 00:[facility]: d [facility] Sulfa DA Active MO 0 [facility] (Sulfona 1-04 [place] mide 00:00: d Antibiot 00 Medical [facility]) [facility] Fish FA Active SV [facility] Containi 1-04 [place] ng 00:00: d Products 00 Medical Center iodine DA Active MO 2020- [facility] 1-04 [place] 00:00: d 00 Medical [facility] morphine DA Active SV 2020- [facility] 1-04 [place] 00:00: d 00 [facility] aspirin DA Active SV 2020- [facility] 1-04 [place] 00:00: d 00 [facility] cephalex DA Active SV 2020- [facility] in 1-04 [place] 00:00: d 00 [facility] cefixime DA Active MO 2020-0 [facility] -04 [place] 00:00: d 00 [facility] Center doxycycl DA Active SV 2020-0 [facility] ine - [place] 00:00: d 00 [facility] clindamy DA Active MO 2020-0 [facility] stephan - [place] 00:00: d 00 [facility] sulfamet DA Active MO 2020-0 [facility] hoxazole - [place] 00:00: d 00 [facility] trimetho DA Active MO 2020-0 [facility] prim -04 [place] 00:00: d 00 [facility] ciproflo DA Active SV 2020-0 [facility] xacin - [place] 00:00: d 00 [facility] adhesive DA Active SV 2020-0 [facility] tape - [place] 00:00: d 00 [facility] tramadol DA Active SV 2020-0 [facility] -04 [place] 00:00: d 00 [facility] gabapent DA Active SV 2020-0 [facility] in - [place] 00:00: d 00 [facility] diltiaze DA Active SV 2020-0 [facility] m - [place] 00:00: d 00 [facility] diphenhy DA Active SV 2020-0 [facility] dramine - [place] 00:00: d 00 [facility] topirama DA Active SV 2020-0 [facility] te - [place] 00:00: d 00 [facility] levoflox DA Active SV 2020-0 [facility] acin 09-28 [place] 00:00: d 00 [facility] quetiapi DA Active MO 2020-0 [facility] ne - [place] 00:00: d 00 [facility] tolterod DA Active MO 2020-0 [facility] ine - [place] 00:00: d 00 [facility] latex DA Active SV 2020-0 [facility] -04 [place] 00:00: d 00 [facility] ivabradi DA Active MO 2020-0 [facility] ne - [place] 00:00: d 00 [facility] coconut FA Active MO 1-0 [facility] -04 [place] 00:00: d 00 [facility] Penicill DA Active SV ANAPHYLAXIS 2020-0 [facility] ins SHOCH 09-28 [place] 00:00: d 00 [facility] Sulfa DA Active MO RASH 2020-0 [facility] (Sulfona 09-28 [place] mide 00:00: d Antibiot 00 Medical [facility]) Center Fish FA Active SV ANAPHYLAXIS 2020- [facility] Containi SHOCK 1-04 [place] ng 00:00: d Products 00 Medical Center iodine DA Active MO RASH 2020-0 [facility] 1-04 [place] 00:00: d 00 [facility] Center morphine DA Active SV ANAPHYLAXIS 2020-0 [facility] SHOCK -04 [place] 00:00: d 00 [facility] Center aspirin DA Active SV ANAPHYLAXIS 2020-0 [facility] SHOCK -04 [place] 00:00: d 00 [facility] cephalex DA Active SV HIVES 2020-0 [facility] in 1-04 [place] 00:00: d 00 [facility] cefixime DA Active MO HIVES 2020-0 [facility] 1-04 [place] 00:00: d 00 [facility] doxycycl DA Active SV RASH 2020-0 [facility] ine 1-04 [place] 00:00: d 00 [facility] clindamy DA Active MO RASH 2020-0 [facility] stephan 1-04 [place] 00:00: d 00 [facility] sulfamet DA Active MO RASH 2020-0 [facility] hoxazole 1-04 [place] 00:00: d 00 [facility] trimetho DA Active MO RASH 2020-0 [facility] prim 1-04 [place] 00:00: d 00 [facility] ciproflo DA Active SV HIVES 2020-0 [facility] xacin 1-04 [place] 00:00: d 00 [facility] adhesive DA Active SV BLISTERS 2020-0 [facility] tape 1-04 [place] 00:00: d 00 [facility] tramadol DA Active SV HIVES 2020-0 [facility] 1-04 [place] 00:00: d 00 [facility] gabapent DA Active SV RASH 2020-0 [facility] in 1-04 [place] 00:00: d 00 [facility] Center diltiaze DA Active SV SHORTNESS OF 2020-0 HC A m BREATH -04 [place] 00:00: d 00 [facility] Center diphenhy DA Active SV RASH 2020-0 [facility] dramine 1-04 [place] 00:00: d 00 [facility] Center topirama DA Active SV HIVES/MEMORY 2020-0 HC A te LOSS - [place] 00:00: d 00 [facility] levoflox DA Active SV HIVES 2020-0 [facility] acin - [place] 00:00: d 00 [facility] Center quetiapi DA Active MO RASH 2020-0 [facility] ne -04 [place] 00:00: d 00 [facility] Center tolterod DA Active MO RASH [facility] ine 1-04 [place] 00:00: d 00 [facility] latex DA Active SV BLISTERS [facility] 1-04 [place] 00:00: d 00 [facility] ivabradi DA Active MO RASH [facility] ne 1-04 [place] 00:00: d 00 [facility] coconut FA Active MO RASH [facility] 1-04 [place] 00:00: d 00 [facility] Topirama Propensi Active Anaphylaxis 2019-0 M ethodi te ty to [address] adverse 00:00: Hospita reaction 00 l s to drug Ivabradi Propensi Active Rash 2018-09: Meth jamie ne ty to 0-[address] adverse 00:00: passing Hospita reaction 00 out after l s to taking drug one dose of that medicine Diltiaze Propensi Active Shortness of 2018-09 Univers m Hcl ty to Breath 0-01 ity of adverse 00:00: [place] reaction 00 Medical s Branch Ivabradi Propensi Active Rash [...] Medical Branch Diltiaze Propensi Active Shortness Of 2018-0 Methodi m ty to Breath 9[address] st adverse 00:00: Hospita reaction 00 l s to drug Diltiaze Propensi Active Shortness of 2019- Univers m ty to Breath 9-05 ity of adverse 00:00: [place] reaction 00 Medical s Branch DILTIAZE DRUG Active Med SOB 2018- Univers M INGREDI 9-05 ity of 00:00: [place] 00 Medical Branch Cephalex Propensi Active Anaphylaxis 2019-0 M ethodi in ty to 8[address] st adverse 00:00: Hospita reaction 00 l s to drug Doxycycl Propensi Active Rash Method i ine ty to 805 st adverse 00:00: Hospita reaction 00 l s to drug Cefixime Propensi Active Rash 2019-0 Univer s ty to 805 ity of adverse 00:00: [place] reaction 00 Medical s Branch Doxycycl Propensi Active Rash 2018-0 Univer s ine ty to 805 ity of adverse 00:00: [place] reaction 00 Medical s Branch Fish Propensi Active Anaphylaxis 2018-0 Family Uni vers Containi ty to 805 history ity of ng adverse 00:00: of [place] Products reaction 00 allergic Medi balne s reaction. Branch FISH Drug Active High Anaphylaxis Unive rs CONTAINI Class 8-05 ity of NG 00:00: [place] PRODUCTS 00 Medical Branch DOXYCYCL DRUG Active Rash 2018- Univers INE INGREDI 8-05 ity of 00:00: [place] 00 Medical Branch CEFIXIME DRUG Active Low Rash 2018- Univers INGREDI 8-05 ity of 00:00: [place] 00 Medical Branch Levoflox Propensi Active Anaphylaxis 2018-0 M ethodi acin ty to 04-29 st adverse 00:00: Hospita reaction 00 l s to drug CEFIXIME Allergy Active Low Rash 2017-09 [facility] 10-17 00:00: 00 TRAMADOL Allergy Active Low Rash 2017-09 [facility] 10-17 00:00: 00 SULFAMET Allergy Active High Anaphylaxis 2017-09 SL HOXAZOLE 10-17 -TRIMETH 00:00: OPRIM 00 GABAPENT Allergy Active High Sob 2017-09 [facility] IN 10-17 00:00: 00 IODINE Allergy Active High Rash 2017-09 [facility] AND 10-17 IODIDE 00:00: CONTAINI 00 NG PRODUCTS MORPHINE Allergy Active High Anaphylaxis 2017-09 [facility] 10-17 00:00: 00 PENICILL Allergy Active High Anaphylaxis 2017-09 [facility] INS 10-17 00:00: 00 DIPHENHY Allergy Active [...] - Hcl adverse 00:00: Medical reaction 00 [place] Ciproflo Propensi Active 2017-[address] xacin ty to 10-17 aches. [facility] - adverse 00:00: Medical reaction 00 [place] s Clindamy Propensi Active Rash 2017-[address] stephan ty to 10-17 [facility] - adverse 00:00: Medical reaction 00 [place] [facility] Tolterod Propensi Active Rash 2017-[address] ine ty to 10-17 [facility] - adverse 00:00: Medical reaction 00 [place] s Gabapent Propensi Active Shortness Of 2017-[address] in ty to Breath, Rash 10-17 Luke s - adverse 00:00: Medical reaction 00 [place] s Iodine Propensi Active Rash 2017-[address] And ty to 10-17 [facility] - Iodide adverse 00:00: Medical Containi reaction 00 [facility] s Products Latex Propensi Active Rash 2017-[address] ty to 10-17 [facility] - adverse 00:00: Medical reaction 00 [place] Morphine Propensi Active Anaphylaxis 2017-[address] ty to 10-17 [facility] - adverse 00:00: Medical reaction 00 [place] s Penicill Propensi Active Anaphylaxis 2017-[address] ins ty to 10-17 [facility] - adverse 00:00: Medical reaction 00 [place] s Quetiapi Propensi Active 2017-[address] ne ty to 10-17 [facility] - adverse 00:00: Medical reaction 00 [place] s Sulfa Propensi Active Rash 2017-[address] (Sulfona ty to 10-17 [facility] - mide adverse 00:00: Medical Antibiot reaction 00 [facility]) s Cefixime Propensi Active Rash 2017-[address] ty to 10-17 [facility] - adverse 00:00: Medical reaction 00 [place] s Tramadol Propensi Active Rash 2017-[address] ty to 10-17 [facility] - adverse 00:00: Medical reaction 00 [place] s QUETIAPI Allergy Active 2017-09 [facility] NE 10-17 00:00: 00 Cefixime Propensi Active Rash 2017-09 Method i ty to 10-17 st adverse 00:00: Hospita reaction 00 l s to drug Sulfamet Propensi Active Rash 2017-09 Method i hoxazole ty to 10-17 st -Trimeth adverse 00:00: Hospita oprim reaction 00 l s to drug ADHESIVE Allergy Active Low Rash 2017- [facility] TAPE 10-17 00:00: 00 CLINDAMY Allergy Active Low Rash 2017- [facility] STEPHAN 10-17 00:00: 00 TOLTEROD Allergy Active Low Rash 2017- [facility] INE 10-17 00:00: 00 LATEX Allergy Active Low Rash 2017- [facility] 10-17 00:00: 00 SULFA Allergy Active Low Rash 2017- [facility] (SULFONA 10-17 MIDE 00:00: ANTIBIOT 00 ICS) Coconut Propensi Active Rash 2017- Univers ty to 1-10 ity of adverse 00:00: [place] reaction 00 Medical s Branch Seafood/ Propensi Active Swelling 2017- Univ ers Fish ty to 1-10 ity of adverse 00:00: [place] reaction 00 Medical s Branch COCONUT DRUG Active Hives 2017- Univers INGREDI 1-10 ity of 00:00: [place] 00 Medical Branch SEAFOOD/ Food Active Rash 2017- Univers FISH 1-10 ity of 00:00: [place] 00 Medical Branch Coconut Propensi Active Rash 2017- Methodi ty to 10-04 st adverse 00:00: Hospita reaction 00 l s to drug Coconut Propensi Active Rash 2017- Methodi Oil ty to 10-04 st adverse 00:00: Hospita reaction 00 l s to drug Other Propensi Active Swelling 2017- Family Method i ty to 10-[address] adverse 00:00: of Hospita reaction 00 allergic l s reaction. Diphenhy Propensi Active Hives 2018-0 Univer s dramine ty to 4-12 ity of Hcl adverse 00:00: [place] reaction 00 Medical s Branch Clindamy Propensi Active Rash 2018-0 Univer s stephan ty to 4-12 ity of adverse 00:00: [place] reaction 00 Medical s Branch Gabapent Propensi Active Rash 2018-0 Univer s in ty to 4-12 ity of adverse 00:00: [place] reaction 00 Medical s Branch Iodine Propensi Active Rash 2018-0 Univers ty to 4-12 ity of adverse 00:00: [place] reaction 00 Medical s Branch DIPHENHY DRUG Active Hives 2018- Univers DRAMINE INGREDI 4-12 ity of HCL 00:00: [place] 00 Medical Branch CLINDAMY DRUG Active Rash 2017-0 Univers STEPHAN INGREDI -12 ity of 00:00: Medical Branch GABAPENT DRUG Active Rash 2018-0 Univers IN INGREDI 01-04 ity of 00:00: Medical Branch IODINE DRUG Active Rash 2018-0 Univers INGREDI -12 ity of 00:00: Medical Branch Clindamy Propensi Active Rash 2018-0 Method i stpehan ty to 01-04 st adverse 00:00: Hospita reaction 00 l s to drug Diphenhy Propensi Active Other (See Me thodi dramine ty to Comments) 01-04 adverse 00:00: Hospita reaction 00 l s to drug Gabapent Propensi Active Shortness Of Methodi in ty to Breath 01-04 adverse 00:00: Hospita reaction 00 l s to drug Iodine Propensi Active Rash Methodi And ty to 01-04 Iodide adverse 00:00: Hospita Containi reaction 00 l ng s to Products drug Morphine Propensi Active Anaphylaxis 2017- U nivers ty to 0-05 ity of adverse 00:00: [place] reaction 00 Medical s Branch MORPHINE DRUG Active High Anaphylaxis 2017- Uni vers INGREDI 0-05 ity of 00:00: Medical Branch Morphine Propensi Active Anaphylaxis 2017- M ethodi ty to 005 st adverse 00:00: Hospita reaction 00 l s to drug Tramadol Propensi Active Unknown - Rash Uni vers ty to See comments 06-22 ity of adverse 00:00: [place] reaction 00 Medical s Branch TRAMADOL DRUG Active Unknown-Cmnt Un austyn INGREDI 06-22 ity of 00:00: [place] 00 Medical Branch Tramadol Propensi Active Rash 2017- Rash Rash Met hodi ty to 06-22 st adverse 00:00: Hospita reaction 00 l s to drug Ciproflo Propensi Active Other - See Muscle U nivers xacin ty to comments 04-20 aches ity of adverse 00:00: [place] reaction 00 Medical s Branch Quetiapi Propensi Active Rash Univer s ne ty to 04-20 ity of Fumarate adverse 00:00: [place] reaction 00 Medical s Branch CIPROFLO DRUG Active Other-Cmnt 0 Univ ers XACIN INGREDI 04-20 ity of 00:00: [place] 00 Medical Branch QUETIAPI DRUG Active Rash Univers NE INGREDI 04-20 ity of FUMARATE 00:00: [place] 00 Medical Branch Quetiapi Propensi Active Rash confusion Met hodi ne ty to 04-20 st adverse 00:00: Hospita reaction 00 l s to drug Aluminum Propensi Active Anaphylaxis U nivers Aspirin ty to 01-18 ity of adverse 00:00: [place] reaction 00 Medical s Branch Penicill Propensi Active Anaphylaxis U nivers in ty to 01-18 ity of adverse 00:00: [place] reaction Medical s Branch ALUMINUM DRUG Active High Anaphylaxis Uni vers ASPIRIN INGREDI 01-18 ity of 00:00: [place] [facility] PENICILL DRUG Active High Anaphylaxis Uni vers IN INGREDI 01-18 ity of 00:00: [place] 00 Medical Branch Adhesive Drug Active Rash Univers Allergy 03-20 ity of 00:00: [place] 00 Medical Branch ADHESIVE Drug Active Low Rash Univers Class 6- ity of 00:00: [place] 00 Medical Branch Ciproflo Propensi Active Other (See Muscle Me thodi xacin ty to Comments) 02-[address] adverse 00:00: le [facility]hes. [facility] a reaction 00 Muscle l s to aches drug Aspirin Propensi Active Anaphylaxis Un [place] ty to 12-31 ity of adverse 00:00: [place] reaction 00 Medical s to Branch drug ASPIRIN DRUG Active High Anaphylaxis Univ ers INGREDI 12-31 ity of 00:00: [place] 00 Medical Branch Adhesive Propensi Active Rash 2012-09 Can use Unive rs Tape-Cynthia ty to 10-20 papertape ity o f icones adverse 00:00: . [place] reaction 00 Medical s Branch Tolterod Propensi Active Rash 2012-09 Univer s ine ty to 10-20 ity of Tartrate adverse 00:00: [place] reaction 00 Medical s Branch Latex Propensi Active Rash [...] Stop Date Quantity Comments Source History SDOH [facility] History SDOH [facility] Exposure to Not sure University of SARS-CoV-2 (event) [facility] Alcohol intake 2021-10-22 2021-10-22 [facility] of 00:00:00 00:00:00 non-drinker of [facility] (finding) Education 2021-03-25 2021-03-[address] [place] [address] of 00:00:00 00:00:00 [place] [facility] History SDAL 2019-10-29 2019-10-29 5 University o f Financial 00:00:00 00:00:00 [place] [facility] History [facility] Food 2019-10-29 2019-10-29 1 Univers ity of Worry 00:00:00 00:00:00 [place] [facility] History [facility] Food 2019-10-29 2019-10-29 1 Univers ity of Scarcity 00:00:00 00:00:00 [place] [facility] History [facility] 2019-10-29 2019-10-29 2 University o f Transport Med 00:00:00 00:00:00 [place] [facility] History [facility] 2019-10-29 2019-10-29 2 University o f Transport Non-Med 00:00:00 00:00:00 [place] M edical [facility] History [facility] 2018-09-05 2018-09-05 1 [facility] Alcohol Frequency 00:00:00 00:00:00 Hospita l Cigarettes smoked 2018-04-27 2018-04-27 Univers ity of current (pack per 00:00:00 00:00:00 [facility] ) - Reported Branch Cigarette 2018-04-27 2018-04-27 University of pack-years 00:00:00 00:00:00 [facility] Tobacco use and 2018-04-27 2018-04-27 Never used Universit y of exposure 00:00:00 00:00:00 [facility] Tobacco Comment 2018-04-27 2018-04-27 quit 16 years Univer sity of 00:00:00 00:00:00 ago [facility] History of tobacco 2003-05-09 Smoker Univer sity of use 00:00:00 [facility] Sex Ass[birth year] At [birth year] Universit y of 00:00:00 00:00:00 [facility] Smoking Status Start Date Stop Date Source Former smoker 2018-04-27 00:00:00 2018-04-27 00:00:00 Universi ty of [facility] Medications Ordered Filled Start Stop Current Ordering Indication Dosage Frequency Signature Comments Components Source Medication Medication Date Date Medication? Clinician (SIG) Name Name ALPRAZolam Yes [id number] .25mg Take 0.25 Univers (XANAX) 2-11 mg by ity of 0.25 mg 11:24: mouth at [place] tablet 16 bedtime as Medical needed. Branch pregabalin 0 Yes 50mg Take 50 mg U nivers (LYRICA) 50 2-11 by mouth ity of mg capsule 11:24: at [place] 16 bedtime. Medical Branch esomeprazol 0 Yes 20mg Take 20 mg Univers e (NEXIUM) 2-11 by mouth 2 ity of 20 mg 11:24: (two) [place] capsule 16 times Medical daily Branch before breakfast and dinner. ALPRAZolam Yes [id number] .25mg Take 0.25 Univers (XANAX) 2-11 mg by ity of 0.25 mg 11:24: mouth at [place] tablet 16 bedtime as Medical needed. Branch pregabalin Yes 50mg Take 50 mg U nivers (LYRICA) 50 2-11 by mouth ity of mg capsule 11:24: at [place] 16 bedtime. Medical Branch esomeprazol Yes 20mg Take 20 mg Univers e (NEXIUM) 2-11 by mouth 2 ity of 20 mg 11:24: (two) [place] capsule 16 times Medical daily Branch before breakfast and dinner. azithromyci Yes [id number] 250mg Take 1 Univers n 250 mg 2-08 tablet by ity of tablet 00:00: mouth [place] 00 daily. Medical Branch azithromyci 0 Yes [id number] 250mg Take 1 Univers n 250 mg 2-08 tablet by ity of tablet 00:00: mouth [place] 00 daily. Medical Branch chlorphenir 0 Yes [id number] 4mg Take 1 Univers amine 4 mg 1-05 tablet by ity of tablet 00:00: mouth [place] 00 every 6 Medical (six) Branch hours as needed for Allergies or Runny nose. calcium/mag 0 Yes [id number] 1{each} Take 1 Univers nesium/zinc 1-05 Each by ity o f (CALCIUM-MA 00:00: mouth [place] GNESUIUM-ZI 00 daily. Medica l [place]) Branch 333-133-5 mg Tab benzonatate 0 Yes [id number] 100mg Take 1 Univers 100 mg 1-05 capsule by ity of capsule 00:00: mouth 3 [place] 00 (three) Medical times Branch daily as needed for Cough. chlorphenir Yes [id number] 4mg Take 1 Univers amine 4 mg 1-05 tablet by ity of tablet 00:00: mouth [place] 00 every 6 Medical (six) Branch hours as needed for Allergies or Runny nose. calcium/mag Yes [id number] 1{each} Take 1 Univers nesium/zinc 1-05 Each by ity o f (CALCIUM-MA 00:00: mouth [place] GNESUIUM-ZI 00 daily. Medica l [place]) Branch 333-133-5 mg Tab benzonatate Yes [id number] 100mg Take 1 Univers 100 mg 1-05 capsule by ity of capsule 00:00: mouth 3 [place] 00 (three) Medical times Branch daily as needed for Cough. levETIRAcet 2020-09- Yes [id number] 750mg Take 1 Univers am (KEPPRA) 2-06 26-14 tablet by it y of 750 mg 00:00: 05:59 mouth at [place] tablet 00 :00 bedtime Medical for 65 Branch days. levETIRAcet 2020-09- Yes [id number] 750mg Take 1 Univers am (KEPPRA) 2-10 -14 tablet by it y of 750 mg 00:00: 05:59 mouth at [place] tablet 00 :00 bedtime Medical for 65 Branch days. digoxin 2020-09 Yes 125ug Take 1 Univers [...] 00 daily. Medical Branch albuterol 2020-09 Yes [id number] 1.25mg Inhale 1.5 Univers 2.5 mg /3 1-11 mL every 4 ity of mL (0.083 00:00: (four) [place] %) 00 hours. Medical nebulizer Branch solution albuterol 2020-09 Yes [id number] 1.25mg Inhale 1.5 Univers 2.5 mg /3 1-11 mL every 4 ity of mL (0.083 00:00: (four) [place] %) 00 hours. Medical nebulizer Branch solution albuterol 2020-09 Yes [id number] 2{puff} Inhale 2 Univers 90 1-05 Puffs ity of mcg/actuati 00:00: every 6 [place] as on inhaler 00 (six) Medical hours as Branch needed for Wheezing or Shortness of Breath. albuterol 2020-09 Yes [id number] 2{puff} Inhale 2 Univers 90 1-05 Puffs ity of mcg/actuati 00:00: every 6 [place] as on inhaler 00 (six) Medical hours as Branch needed for Wheezing or Shortness of Breath. carvediloL 2020-09 Yes 25mg Take 1 Unive rs 25 mg 0-27 tablet by ity of tablet 00:00: mouth 2 (two) Medical times Branch daily with meals. carvediloL 2020-09 Yes 25mg Take 1 Unive rs 25 mg 0-27 tablet by ity of tablet 00:00: mouth 2 (two) Medical times Branch daily with meals. ubrogepant 2020-09 Yes [id number] 100mg Take 100 Univers (UBRELVY) 0-19 mg by ity of 100 mg Tab 00:00: mouth as [place] as 00 needed Medical (migraine) Branch . Take at onset of migraine, repeat x1 in 2h if headache remains ubrogepant 2020-09 Yes [id number] 100mg Take 100 Univers (UBRELVY) 0-19 mg by ity of 100 mg Tab 00:00: mouth as [place] as 00 needed Medical (migraine) Branch . Take at onset of migraine, repeat x1 in 2h if headache remains nitroglycer 2020-[id number] 1 Univers in 0.4 mg 0-10 tablet ity of sublingual 00:00: [place] tablet 00 tongue Medical every 5 Branch (five) minutes as needed for Chest pain. nitroglycer 2020-[id number] 1 Univers in 0.4 mg 0-10 tablet ity of sublingual 00:00: [place] tablet 00 tongue Medical every 5 Branch (five) minutes as needed for Chest pain. VRAYLAR 3 Yes 1{capsu Take 1 Uni vers mg Cap 8-25 le} capsule by ity of 00:00: mouth at [place] 00 bedtime. Medical Branch VRAYLAR 3 Yes 1{capsu Take 1 Uni vers mg Cap 8-25 le} capsule by ity of 00:00: mouth at [place] 00 bedtime. Medical Branch albuterol Yes [id number] 2.5mg Inhale 3 Univers 2.5 mg /3 8-05 mL every 6 ity of mL (0.083 00:00: (six) [place] %) 00 hours as Medical nebulizer needed for Bran ch solution Wheezing or Shortness of Breath. albuterol Yes [id number] 2.5mg Inhale 3 Univers 2.5 mg /3 8-05 mL every 6 ity of mL (0.083 00:00: (six) [place] %) 00 hours as Medical nebulizer needed for Bran ch solution Wheezing or Shortness of Breath. apixaban 0 Yes 5mg Take 1 Univers (ELIQUIS) 5 7-14 tablet by ity of mg tablet 00:00: mouth 2 (two) Medical times Branch daily. Indication s: Recurrent DVT apixaban 2020-0 Yes 5mg Take 1 Univers (ELIQUIS) 5 7-14 tablet by ity of mg tablet 00:00: mouth 2 (two) Medical times Branch daily. Indication s: Recurrent DVT fluticasone 0 Yes 100ug QD 2 sprays M ethodi propionate 6-25 ([address] (FLONASE) 00:00: total) by Hos elenita 50 00 Each Nare l mcg/actuati route on nasal daily. spray fexofenadin 0 2020- No 180mg QD Take 1 Me [...] times a l mcg/actuati day. on inhaler albuterol Yes 1{ampul Q.[id number] Take 1 Methodi (ACCUNEB) 6-24 e} [id number] ampule by st 1.25 mg/3 22:52: 3D [...] l capsule and inhale once daily. rosuvastati 0 Yes 5mg QD Take 5 mg M ethodi n (CRESTOR) 6-[address] 5 mg tablet 22:52: [facility]. [facility] 44 l cycloSPORIN 0 Yes 1[drp] Q.5D 1 drop 2 Methodi E 6-24 (two) st (RESTASIS) 22:52: times a [facility] 0.05 % 44 day. l ophthalmic emulsion esomeprazol No 20mg QD Take 20 mg Methodi [...] Yes QD Inhale 1 Me thodi furoate-natan 03-[address] anteroL 00:00: s daily. Hospit a (Breo 00 l Ellipta) 200-25 mcg/dose blister with device powder for inhalation albuterol Yes 2{puff} Q4H Inhale 2 M ethodi (PROAIR 03-[address] HFA) 90 00:00: every 4 Hospita mcg/actuati 00 (four) l on inhaler hours as needed for wheezing. esomeprazol No 40mg QD Take 1 Met hodi e (NexIUM) 03-[address] 40 MG 00:00: 04:59 (40 mg Hospita capsule 00 :00 total) by l mouth daily before breakfast for 30 days. ibuprofen 2020- No 600mg Q8H Take 1 Meth jamie (ADVIL) 600 03-[address] MG tablet 00:00: 04:59 (600 mg [facility] 00 :00 total) by l mouth every 8 (eight) hours for 5 days. methylPREDN 2020- No follow Met hodi ISolone 03-[address] (Medrol, 00:00: 04:59 directions Ho spita Juliocesar,) 4 mg 00 :00 l tablet promethazin 2020- No 12.5mg Q6H Take 1 M ethodi e 03-[address] (PHENERGAN) 00:00: 04:59 (12.5 mg H ospita 12.5 MG 00 :00 total) by l tablet mouth every 6 (six) hours as needed for nausea or vomiting for up to 3 days. tiotropium Yes [id number] 1{puff} Inhale 1 Univers bromide 6-02 Puff ity of (SPIRIVA 00:00: daily. [place] RESPIMAT) 00 Medical 2.5 Branch mcg/actuati on Mist fluticasone Yes [id number] 1{puff} Inhale 1 Univers furoate-natan 6-02 Puff ity of anteroL 00:00: daily. [place] (BREO 00 Medical ELLIPTA) Branch 200-25 mcg/dose DsDv tiotropium Yes [id number] 1{puff} Inhale 1 Univers bromide 6-02 Puff ity of (SPIRIVA 00:00: daily. [place] RESPIMAT) 00 Medical 2.5 Branch mcg/actuati on Mist fluticasone Yes [id number] 1{puff} Inhale 1 Univers furoate-natan 6-02 Puff ity of anteroL 00:00: daily. [place] (BREO 00 Medical ELLIPTA) Branch 200-25 mcg/dose DsDv ALPRAZolam Yes .25mg [...] mouth Medic al hr capsule 46 daily. Center apixaban Yes 5mg QD Take 5 mg [...] s - MG capsule 14:04: nightly . Nm dical 46 Center esomeprazol Yes 40mg QD [...] Cap 14:04: mouth Medica l 46 nightly. [place] albuterol 2021- No 1{ampul Q.5D Take 1 [facility] I [...] [facility] - (SYNTHROID, 22:20: 00:00 mouth Medi lbane LEVOTHROID) 38 :00 Every Center 125 MCG [...] daily as M edical 31 :00 needed. Center ARIPiprazol No 5mg QD Take [address] [facility] [address] [facility] (ABILIFY) 02-10 by mouth Berta es - 5 MG tablet 22:18: 00:00 nightly. M edical 03 :00 Center ARIPiprazol No 10mg QD Take [address] [facility] (ABILIFY) 02-10 by mouth Berta es - 10 MG 22:17: 00:00 daily. Medical disintegrat 48 :00 Center ing tablet benzonatate Yes [id number] 100mg Take 1 Univers (TESSALON 2-11 capsule by Ann) 100 00:00: mouth 3 [place] as mg capsule 00 (three) Medica l times Branch daily as needed for Cough. benzonatate Yes [id number] 100mg Take 1 Univers (TESSALON 2-11 capsule by Ann) 100 00:00: mouth 3 [place] as mg capsule 00 (three) Medica l times Branch daily as needed for Cough. levETIRAcet Yes [id number] 1000mg Take 2 Univers am 500 mg 7-29 tablets by ity of tablet 00:00: mouth 2 [place] 00 (two) Medical times Branch daily. levETIRAcet Yes [id number] 1000mg Take 2 Univers am 500 mg 7-29 tablets by ity of tablet 00:00: mouth 2 [place] 00 (two) Medical times Branch daily. blood sugar 2017-09 Yes [id number] Use as Univers diagnostic 0-24 directed. ity of (TRUETEST 00:00: [place]. [place] TEST 00 Check once Medical STRIPS) daily Branch strip lancets 2017-09 Yes [id number] Use as Uni vers (TRUEPLUS 0-24 directed. ity o f LANCETS) 33 00:00: R [place].03, [place] gauge Misc 00 Check once Med ical daily Branch blood sugar 2017-09 Yes [id number] Use as Univers diagnostic 0-24 directed. ity of (TRUETEST 00:00: [place]. [place] TEST 00 Check once Medical STRIPS) daily Branch strip lancets 2017- Yes [id number] Use as Uni vers (TRUEPLUS 0-24 directed. ity o f LANCETS) 33 00:00: R 73.03, [place] gauge Mis 00 Check once Med ical daily Branch busPIRone Yes TK 1 T PO Uni vers 15 mg 9-22 BID ity of tablet 00:00: [place] 00 Medical Branch venlafaxine Yes 150mg 150 mg at Univers XR 150 mg 06-16 bedtime. ity of 24 hr 00:00: [place] capsule 00 Medical Branch busPIRone Yes TK 1 T PO Uni vers 15 mg 9-22 BID ity of tablet 00:00: [place] Medical Branch venlafaxine Yes 150mg 150 mg at Univers XR 150 mg 06-16 bedtime. ity of 24 hr 00:00: [place] capsule Medical Branch loratadine Yes as needed. U nivers (CLARITIN) 9-11 ity of 10 mg 00:00: [place] tablet 00 Medical Branch loratadine Yes as needed. U nivers (CLARITIN) 9-11 ity of 10 mg 00:00: [place] tablet 00 [facility] Branch Immunizations Ordered Filled Immunization Date Status Comments [facility] e Immunization Name Name SARS-COV-2 COVID-19 2021-02-08 Completed Unive rsity of MODERNA VACCINE 00:00:00 [facility] SARS-COV-2 COVID-19 2021-02-08 Completed Unive rsity of MODERNA VACCINE 00:00:00 [facility] SARS-COV-2 COVID-19 2021-01-11 Completed Unive rsity of MODERNA VACCINE 00:00:00 [facility] SARS-COV-2 COVID-19 2021-01-11 Completed Unive rsity of MODERNA VACCINE 00:00:00 [facility] Influenza Virus 2020-08-13 Completed Universit y of Vaccine 00:00:00 [facility] Influenza Virus 2020-08-13 Completed Universit y of Vaccine 00:00:00 [facility] Pneumococcal 2017-06-23 Completed University o f Polysaccharide, 00:00:00 [facility] PPSV23 (PNEUMOVAX) [place] Pneumococcal 2017-06-23 Completed University o f Polysaccharide, 00:00:00 [facility] ical PPSV23 (PNEUMOVAX) Branch Influenza High Dose 2015-11-16 Completed Unive rsity of 00:00:00 [facility] Pneumococcal 2015-11-16 Completed University o f Polysaccharide, 00:00:00 [place] Med ical PPSV23 (PNEUMOVAX) Branch Influenza High Dose 2015-11-16 Completed Unive rsity of 00:00:00 [facility] Pneumococcal 2015-11-16 Completed [place] o f Polysaccharide, 00:00:00 [place] Med ical PPSV23 (PNEUMOVAX) Branch Vital Signs Vital Name Observation Time Observation Value Comments Source HEIGHT 2021-02-10 21:00:00 149.9 cm WEIGHT 2021-02-10 21:00:00 59.467 kg Systolic blood 2021-11-05 17:20:00 124 mm[Hg] Univer sity of pressure [facility] Diastolic blood 2021-11-05 17:20:00 87 mm[Hg] Unive rsity of pressure [facility] Heart rate 2021-11-05 17:20:00 100 /min [facility] Body height 2021-11-05 17:20:00 149.9 cm [facility] Body weight 2021-11-05 17:20:00 59.478 kg [facility] BMI 2021-11-05 17:20:00 26.48 kg/m2 [facility] Oxygen saturation in 2021-11-05 17:20:00 99 /min [facility] Arterial blood by [facility] Pulse oximetry Branch HEIGHT 2021-02-10 21:00:00 149.9 cm WEIGHT 2021-02-10 21:00:00 59.467 kg Oxygen saturation in 2021-03-18 20:00:00 97 /min [facility] Arterial blood by Pulse oximetry Systolic blood 2021-03-18 17:24:48 132 mm[Hg] Method ist [facility] pressure Diastolic blood 2021-03-18 17:24:48 72 mm[Hg] [facility] pressure Heart rate 2021-03-18 17:24:48 96 /min [facility] Body temperature 2021-03-18 17:24:48 37 [facility] 2021-03-18 17:24:48 14 /min [facility] Body height 2021-03-18 01:37:00 149.9 cm [facility] Body weight 2021-03-18 00:09:00 58.968 kg [facility] BMI 2021-03-18 00:09:00 26.26 kg/m2 [facility] Systolic blood 2021-02-12 12:00:00 101 mm[Hg] [facility] Diastolic blood 2021-02-12 12:00:00 72 mm[Hg] [facility] Heart rate 2021-02-12 12:00:00 93 /min [facility] Respiratory rate 2021-02-12 12:00:00 18 /min [facility] Oxygen saturation in 2021-02-12 12:00:00 96 /min [facility] Arterial blood by Medical Ce nter Pulse oximetry Body temperature 2021-02-12 11:00:00 37.56 Ayaka [facility] Body height 2021-02-11 10:15:00 149.9 cm [facility] Body weight 2021-02-11 10:15:00 59.5 kg [facility] BMI 2021-02-11 10:15:00 26.48 kg/m2 [facility] Procedures Procedure Date / Time Performing Clinician Source Performed POC GLUCOSE 2021-03-18 17:31:00 Cliff Berkowitz [facility] 12-LEAD 2021-03-18 17:28:01 [facility] 2021-03-18 16:41:00 [facility], WO 2021-03-18 14:19:12 [facility] CONTRAST, W DOPPLER ([id number]) POC GLUCOSE 2021-03-18 13:14:00 [facility] HC COMPLETE BLD COUNT 2021-03-18 10:00:00 [facility] [place] [facility] W/AUTO DIFF COMPREHENSIVE METABOLIC 2021-03-18 10:00:00 [facility] PANEL MAGNESIUM LEVEL 2021-03-18 10:00:00 Lae, [facility] PHOSPHORUS LEVEL 2021-03-18 10:00:00 Lae, [facility] LIPID PANEL 2021-03-18 10:00:00 Lae, [facility] HEMOGLOBIN A1C 2021-03-18 10:00:00 Laeeq, [facility] ESTIMATED GFR 2021-03-18 10:00:00 Laeeq, [facility] URINE CULTURE 2021-03-18 06:12:00 Laeeq, [facility] LEGIONELLA URINARY 2021-03-18 05:36:00 Laeeq, [facility] ANTIGEN STREPTOCOCCUS PNEUMONIAE 2021-03-18 05:36:00 Lae, [facility] URINARY ANTIGEN URINALYSIS SCREEN AND 2021-03-18 05:36:00 Laeeq, [facility] MICROSCOPY, WITH REFLEX TO CULTURE BLOOD CULTURE, AEROBIC & 2021-03-18 04:35:00 Laeeq, [facility] ANAEROBIC BLOOD CULTURE, AEROBIC & 2021-03-18 04:25:00 Laeeq, [facility] ANAEROBIC DIGOXIN LEVEL 2021-03-18 04:24:00 Lae, [facility] TROPONIN 2021-03-18 04:24:00 Antonio Hector [facility] LACTIC ACID LEVEL, SEPSIS 2021-03-18 04:24:00 Lae, [facility] - NOW AND REPEAT 2X EVERY 3 HOURS POC GLUCOSE 2021-03-18 01:38:00 Lae, [facility] ARTERIAL BLOOD GAS 2021-03-18 01:10:00 Laeeq, [facility] US DUPLEX VENOUS LOWER 2021-03-18 01:00:06 Lae, [facility] EXTREMITY BILATERAL LACTIC ACID LEVEL, SEPSIS 2021-03-17 23:47:00 Lae, [facility] - NOW AND REPEAT 2X EVERY 3 HOURS TROPONIN 2021-03-17 23:47:00 [facility], [facility] XR CHEST 1 VW PORTABLE 2021-03-17 21:20:18 AlvarezHector [facility] HC COMPLETE BLD COUNT 2021-03-17 21:05:00 [place] [facility] W/AUTO DIFF LACTIC ACID LEVEL, SEPSIS 2021-03-17 21:05:00 [facility] - NOW AND REPEAT 2X EVERY 3 HOURS COMPREHENSIVE METABOLIC 2021-03-17 21:05:00 [facility] PANEL TROPONIN 2021-03-17 21:05:00 [facility] B NATRIURETIC PEPTIDE 2021-03-17 21:05:00 [facility] Hector Ochoa [facility] D-DIMER 2021-03-17 21:05:00 [facility] ESTIMATED GFR 2021-03-17 21:05:00 [facility] ECG ED PRELIMINARY 2021-03-17 20:36:46 [facility] INTERPRETATION ECG 12-LEAD 2021-03-17 20:19:38 [facility] BASIC METABOLIC PANEL (7) 2021-02-12 05:34:00 Johan Alison [facility] MAGNESIUM 2021-02-12 05:34:[address] [facility] PHOSPHORUS 2021-02-12 05:34:[address] [place] [address] [facility] CBC W/PLT COUNT & AUTO 2021-02-12 04:48:00 Alison Prado I [facility] MR BRAIN WITHOUT IV 2021-02-11 16:08:00 [facility] MRA HEAD WITHOUT IV 2021-02-11 16:07:00 [facility] MRA NECK WITHOUT IV 2021-02-11 16:07:00 [facility] RAPID DRUG SCREEN, URINE 2021-02-11 03:05:00 [place] [facility] URINALYSIS WITH 2021-02-11 03:05:00 Johan [facility] MICROSCOPIC IF INDICATED [facility] URINALYSIS MICROSCOPIC 2021-02-11 03:05:00 Johan Alison [facility] HOMOCYSTEINE 2021-02-11 02:46:00 [facility] RPR 2021-02-11 02:46:00 [facility] TSH/FREE T4 IF INDICATED 2021-02-11 02:46:00 [facility] VITAMIN B12 AND FOLATE 2021-02-11 02:46:[address] [facility] CBC W/PLT COUNT & AUTO 2021-02-11 02:46:00 [facility] BASIC METABOLIC PANEL (7) 2021-02-11 02:46:00 [facility] MAGNESIUM 2021-02-11 02:46:00 [facility] PHOSPHORUS 2021-02-11 02:46:00 [facility] C-REACTIVE PROTEIN 2021-02-11 02:46:00 [facility] DIGOXIN LEVEL 2021-02-11 02:46:00 [facility] XR CHEST 1 VIEW PORTABLE 2021-02-10 22:20:00 [facility] - / BEDSIDE [facility] POCT-GLUCOSE METER 2021-02-10 21:28:00 Wilmer Vera [facility] LIPID PANEL 2021-02-10 21:22:00 [facility] CREATINE KINASE (CK) 2021-02-10 21:21:00 [facility] HEMOGLOBIN A1C 2021-02-10 21:21:00 [facility] CBC W/PLT COUNT & AUTO 2021-02-10 21:21:00 [facility] COMPREHENSIVE METABOLIC 2021-02-10 21:21:[address] [facility] PROTHROMBIN TIME/INR 2021-02-10 21:21:00 Johan [facility] APTT 2021-02-10 21:21[facility] 2021-02-10 21:21:00 Johan [facility] PHOSPHORUS 2021-02-10 21:21:00 Johan [facility] HIGH SENSITIVITY TROPONIN 2021-02-10 21:21:00 [place] [facility] I [facility] B-TYPE NATRIURETIC FACTOR 2021-02-10 21:21:00 [facility] LACTIC ACID, VENOUS 2021-02-10 21:21:00 EarlhamAutumnAlison [facility] ARRYTHMIA IMPLANT REPORT 2021-02-10 00:00:00 Provider, Mino [facility] - - SCAN Scanning [facility] Plan of Care Planned Activity Planned Date Details Comments Source Future Scheduled 2021-05-[address] [facility] - Test 00:00:00 (#1) [code = [facility] INFLUENZA VACCINE (#1)] Future Scheduled 2020-09-[address] [facility] - Test 00:00:00 (12+) [code = [facility] DEPRESSION SCREENING (12+)] Future Scheduled [address] [facility] - Test 00:00:00 malignant neoplasm Medical C enter of cervix (procedure) [code = 976291108] Future Scheduled 2000 DTAP/TDAP/TD [facility] - Test 00:00:00 VACCINES (1 - Tdap) [facility] [code = DTAP/TDAP/TD VACCINES (1 - Tdap)] Future Scheduled [address] [facility] - Test 00:00:00 SCREENING [code = Medical nter HEPATITIS C SCREENING] Future Scheduled Screening for [facility] Test malignant neoplasm of cervix (procedure) [code = 499808466] Future Scheduled INFLUENZA VACCINE [facility] Test [code = INFLUENZA VACCINE] Encounters Start End Encounter Admission Attending Care Care Encounter Source Date/Time Date/Time Type Type Clinicians Facility Department ID 2021-02-10 Inpatient ER BERSHRHONA, [facility] Neurology [id number] [facility] 20:21:00 WILMER 2020-09-29 Inpatient Mely, [facility] ENDO [id number] [facility] 10:15:00 Linus [id number] [facility] 2020-09-28 Inpatient EL Mely, [facility] ENDO [id number] [facility] 12:00:00 Linus [id number] [facility] 2021-11-05 2021-11-05 Outpatient R AMOS [facility] [id number] Univers 10:23:45 23:59:00 MARIO ity of [facility] 2021-11-05 2021-11-05 [facility] [id number] Univers 10:23:45 23:59:00 Encounter Mario ONTIVEROS [id number] ity [place] PROF[place] [id number] Nm dicor NAL 844 [facility] 2021-11-05 2021-11-05 [facility] [id number] Univers 11:20:00 11:47:58 Visit Andrews ONTIVEROS [id number] ity [place] PROFESS[place] [id number] Nm dical NAL 059 [facility] 2021-11-01 2021-11-01 Outpatient R VISHNU VALIENTE [facility] [id number] Univers 09:17:26 23:59:00 VISHNU VALIENTE i ty [facility] 2021-05-12 2021-05-12 Orders Doctor NURYS [id number] 00:00:00 00:00:00 Only Unassigned, PINKY [id number] [facility] 4.2.7.2.686 [id number] 2021-04-29 2021-04-29 [facility] [id number] 12:33:16 13:56:43 Visit Vishnu Ontiveros [id number] [place] 4.2.7.2.686 Professio [id number] [facility] 085 [facility] 2021-04-28 2021-04-28 Orders [facility] [id number] 00:00:00 00:00:00 Only [facility] [id number] [facility] 4.2.7.2.686 [id number] 2021-03-19 2021-03-19 Patient Omari, 1.2.840.1 [id number] Methodi 00:00:00 00:00:00 Outreach Ann 23028.1.[address] 3.430.2.7 Hospit a .3.140068 l .8 2021-03-17 2021-03-18 Emergency Hector Alvarez 1.2.840.1 [id number] Methodi 14:59:00 17:52:00 Veda Bolanos 86172.1.[address] JeanaCliff aponte 3.430.2.7 Hospita .[id number] l .8 2021-03-17 2021-03-17 Travel 1.2.840.1 [id number] Methodi 00:00:00 00:00:[id number] 3.430.2.7 0.2.7.3.698 Ho spita .[id number] 084.8 l .8 2017-09-06 2017-09-08 Inpatient [facility] [id number] 10:12:00 02:32:00 [facility] Results Test Description Test Time Test Comments Results Result Comments Source ECG 12 lead 2021-03-19 14:56:41 Test Item Value Reference Range Interpretation Comme nts Ventricular rate (test code = 253) Atrial rate (test code = 255) DC interval (test code = 266) QRSD interval [...] of 17-MAR-2021 15:19,-No significant change was found- [facility] [id number] 12:41:23 Test Item Value Reference Range Interpretation Comments Urine culture isolate Mixed alok <=10-3 (test code = 39466-5) col/cc [facility] Complete, (w Contrast, Strain and 3D if needed)2021-03-18 23:04:52 Test Item Value Reference Range Interpretation Comments Ao Root Diameter (test code = 2.73 cm 8968330327) AoV Area, Vmax (test code = 2.24 cm2 0171522308) AoV Area, VTI (test code = 2.25 cm2 7500037102) AoV Mean PG (test code = mmHg 1794805465) AoV Peak PG (test code = mmHg 1522710175) AoV Vmax (test code = 8019087300) 1.46 m/s AoV VTI (test code = 2525803595) 0.28 m IVS,d (test code = 7439501696) 0.72 cm IVS/LVPW,2D (test code = 9490806919) Left Atrium Dimension Anterior 2.68 cm (test code = 8504412369) LV,d (test code = 1900731860) 3.69 cm LV EF,2D (test code = 8915038423) 79.68 % LV,s (test code = 7331107153) 2.17 cm LVOT area (test code = 9977929063) 2.75 cm2 LVOT Diam,S (test code = 1.87 cm 2026049719) LVOT Vmax (test code = 1280109504) 1.18 m/s LVOT VTI (test code = 0351510513) 0.23 m LVPWD,d (test code = 8592680399) 0.65 cm PV Pk Grad (test code = 5456668840) mmHg PV VMAX (test code = 6838789273) 0.84 m/s RVOT Vmax (test code = 8085809615) 0.85 m/s RVSP (TR) (test code = 4036595702) mmHg TR Vpeak (test code = 5213350324) 2.86 mm/s MV E A ratio (test code = 2907696840) RA pressure (test code = mmHg 7803679239) TR pk grad (test code = 0536966214) mmHg MR Vmax (test code = 8776508425) 5.49 m/s E wave decelartion time (test code msec = 7757134156) MV Peak A Alf (test code = 0.76 m/s 6684569961) MV valve area p 1/2 method (test 3.26 cm2 code = 2054577777) MV Peak E Laf (test code = 0.92 m/s 3082943122) MV stenosis pressure 1/2 time (test 67.54 ms code = 4997253021) LVOT stroke volume (test code = 0.63 cm3 7205074497) AV LVOT peak gradient (test code = mmHg 2778665687) RVSP (test code = 0916564231) mmHg Ao Root Diameter (test code = 2.73 cm 0310730483) MV mean gradient (test code = mmHg 1312712425) LV SYS VOL (test code = 8751057877) 15.61 ml LV MARTINS VOL (test code = 57.63 ml 3069325307) LA area s A4C (test code = 11.16 cm2 6803112005) LV SV Teich 2D (test code = 42.02 ml 4560459469) LV Vol s Teich PSAX (test code = 15.61 ml 7702350447) MR peak grad (test code = mmHg 6930062007) MV Vmax (test code = 6561659273) 1.21 m MV VTI Tips (test code = 0.24 m 3117292507) RVOT pk grad (test code = mmHg 6448461874) AoV Vmn (test code = 7159687699) LV FS Teich 2D (test code = 6704882035) MV AE ratio (test code = 6720056798) LV FS Cube 2D (test code = 0213273070) LVOT Vmn (test code = 7780654737) Aov area Vmn (test code = 2.13 cm2 0892634005) LVOT mean grad (test code = mmHg 7396408081) MAX Pred HR (test code = 2196877808) 85 of MPHR (test code = 8176105574) Calc MPHR (test code = 4695249914) bpm LV SV Cube 2D (test code = 39.93 ml 1458025452) LV vol d cube 2D (test code = 50.11 ml 1980140713) LV vol s cube 2D (test code = 10.18 ml 4021175792) MV Decel slope (test code = 3.97 m/s2 0987650029) Pred Exer Dur R1 (test code = 6002469319) Pred METS R1 (test code = 0302878831) LA Vol MOD A4C (test code = 24.20 ml 8143148234) Velocity Ratio (V1/V2) (test code = 0.81 m/s 4689) EF (test code = 8986403347) 72.91 % E/A ratio (test code = 8146372469) LVOT VTI (CM) (test code = 23.00 cm 9957252307) SOMMER (test code = SOMMER) [facility] [id number] 17:32:37 Test Item Value Reference Range Interpretation Comments POC glucose (test code = 54458-4) 207 mg/dL 65-99 H Lab Interpretation (test code = Abnormal 97120-4) [facility] duplex venous lower zyjryzujb9788-43-80 01:17:37 EXAMINATION: US DUPLEX VENOUS LOWER EXTREMITY [...] is no evidence of deep venous thrombosis. [facility]-[id number] Interface, Radiology Results - 03/17/2021 8:20 PM [...] There is no evidence of deep venous thrombosis.[facility]-[id number] HospitalXR Chest 1 Vw Faqbhjek2814-16-05 21:32:52EXAMINATION: XR CHEST 1 VW PORTABLE CLINICAL HISTORY: 40 years Female SOB COMPARISON: None. IMPRESSION: Lines, tubes, and devices: Right-sided transvenous cardiac pacemaker. Heart and mediastinum: Cardiomediastinal silhouette is normal. Lungs and pleura: There is no focal airspace disease, pleuraleffusion or pneumothorax. Bones/soft tissues: No acute osseous abnormality. [facility]-[id number] Dictatedand approved by pharmacy resident/fellow: Cristhian Calixto M.D. I, Jan Scott MD, personally reviewed the images and resident's/fellow's findings and agree with the final report.[facility], [facility] iology Results Incoming - 03/17/2021 4:35 PM CDTFormatting of this note might be different from theoriginal.EXAMINATION: XR CHEST 1 VW PORTABLECLINICAL HISTORY: 40 years Female SOBCOMPARISON: None.IMPRESSION:Lines, tubes, and devices: Right-sided transvenous cardiac pacemaker.Heart and mediastinum: Cardiomediastinal silhouette is normal.Lungs and pleura: There is no focal airspace disease, pleural effusion or pneumothorax.Bones/soft tissues: No acute osseous abnormality.[facility]-[id number] and approved by pharmacy resident/fellow: Aleksandra Sanchez, Jan Scott MD, personally rev iewed the images and resident's/fellow's findings and agree with the final report.[facility] TaylorARRYTHMIA IMPLANT REPORT - [id number] 20:45:31 Ordered by an unspecified provider.[facility] Preliminary Interpretation - Not an [id number] 20:36:46 Test Item Value Reference Range Interpretation Comments SOMMER (test code = SOMMER) Lab Interpretation (test code = Abnormal 40687-4) [facility] Metabolic [id number] 07:01:00 Test Item Value Reference Range Interpretation Comments Sodium (test code = 137 meq/L 344-618 8961-2) Potassium (test code = 4.3 meq/L 3.5-5.1 2823-3) Chloride (test code = 104 meq/L 98-107 2075-0) CO2 (test code = 24 meq/L 22-29 2028-9) BUN (test code = 15 mg/dL 7-21 3094-0) Creatinine (test code 0.81 mg/dL 0.57-1.25 = 2160-0) Glucose (test code = 108 mg/dL 70-105 H 2345-7) Calcium (test code = 9.2 mg/dL 8.4-10.2 61372-4) EGFR (test code = 79 mL/min/1.73 [place] [address]-8) NOT ACCURATE CREATININE CLEARANCE IN PREDICTING GLOMERULAR FILTRATION RATE . ESTIMATED GFR I S NOT APPLICABLE FOR DIALYSIS PATIENTS. SOMMER (test code = SOMMER) [employer] Laboratory Technician ID - PIAYA L Lab Interpretation Abnormal (test code = 38768-0) [facility]estoMagnesium2021-05-21 07:01:00 Test Item Value Reference Range Interpretation Comments Magnesium (test code = 2.5 mg/dL 1.6-2.6 74367-2) SOMMER (test code = SOMMER) [employer] Laboratory Technician ID - PIAYA L Lab Interpretation (test Normal code = 17107-8) [facility]estoPhosphorus2021-05-21 07:01:00 Test Item Value Reference Range Interpretation Comments Phosphorus (test code = 4.3 mg/dL 2.3-4.7 2777-1) SOMMER (test code = SOMMER) Agriculture Laboratory Technician ID - PIAYA L Lab Interpretation (test Normal code = 77822-7) [facility]estoBASIC METABOLIC [id number] 07:01:00 Test Item Value Reference Range Interpretation [...] S NOT APPLICABLE FOR DIALYSIS PATIEN TS. Agriculture Laboratory Technician ID - MACHELLE [id number] 07:01:00 Test Item Value Reference Range Interpretation Comments MAGNESIUM (BEAKER) (test code = 2.5 mg/dL 1.6-2.6 627) [employer] Laboratory Technician ID - MACHELLE GNAFQANOQCU5246-89-41 07:01:00 Test Item Value Reference Range Interpretation Comments PHOSPHORUS (BEAKER) (test code = 4.3 mg/dL 2.3-4.7 604) [employer] Laboratory Technician ID - MACHELLE LCBC with platelet count + automated [id number] 05:37:00 Test Item Value Reference Range Interpretation Comments WBC (test code = 6690-2) 6.8 See_Comment [A utomated message] The system [employer] generated this result transmitted ref erence range: 3.5 - 10 .5 K/L. The refe rence range was not u sed to interpret this result as normal/abnor mal. RBC (test code = 789-8) 5.14 See_Comment [Au tomated message] The system [employer] generated this result transmitted ref erence range: 3.93 - 5 .22 M/L. The refe rence range was not u sed to interpret this result as normal/abnor mal. MCHC (test code = 786-4) 31.6 See_Comment L [A utomated message] The system [employer] generated this result transmitted ref erence range: [...] See_Comment [Aut omated message] 777-3) The system [employer] generated this result transmitted ref erence range: 150 - 45 0 K/CU MM. The referen ce range was not u sed to interpret this result as normal/abnor mal. MPV (test code = 10.0 fL 9.4-12.3 50155-7) nRBC (test code = 413) 0 See_Comment [Aut omated message] The system [employer] generated this result transmitted ref erence range: [...] See_Comment [Aut omated message] 670) The system [employer] generated this result transmitted ref erence range: 1.56 - 6 .13 K/L. The refe rence range was not u sed to interpret this result as normal/abnor mal. # Lymphs (test code = 2.10 See_Comment [Auto mated message] 414) The system [employer] generated this result transmitted ref erence range: 1.18 - 3 .74 K/L. The refe rence range was not u sed to interpret this result as normal/abnor mal. # Monos (test code = 0.48 See_Comment H [Autom ated message] 415) The system [employer] generated this result transmitted ref erence range: 0.24 - 0 .36 K/L. The refe rence range was not u sed to interpret this result as normal/abnor mal. # Eos (test code = 416) 0.26 See_Comment [Au tomated message] The system [employer] generated this result transmitted ref erence range: 0.04 - 0 .36 K/L. The refe rence range was not u sed to interpret this result as normal/abnor mal. # Baso (test code = 417) 0.04 See_Comment [A utomated message] The system [employer] generated this result transmitted ref erence range: 0.01 - 0 .08 K/L. The refe rence range was not u sed to interpret this result as normal/abnor mal. Immature 1 % 0-1 Granulocytes-Relative (test code = 2801) Lab Interpretation (test Abnormal code = 91254-2) [facility] W/PLT COUNT & AUTO [id number] 05:37:00 Test Item Value Reference Range Interpretation [...] code = 2801) MR, MRA, BRAIN, WITHOUT [id number] 16:54:00Reason for exam:->[facility]schemic Stroke [facility] : 1980 Sex: FFINAL REPORT MR, BRAIN, WITHOUT CONTRAST, MR, MRA, BRAIN, WITHOUT CONTRAST, MR, MRA, NECK, WITHOUT IV CONTRAST INDICATION: Stroke, follow upIschemic Stroke Evaluation TECHNIQUE: Multiplanar, multisequence MR imaging of the brain without intravenous contrast.MRA of the head utilizing 3-D imik-hd-xfirdf technique, with 3-D reconstructions.MRA of the neck utilizing 2-D and 3-D igpr-mw-honpud technique, with 3-D reconstructions. COMPARISON: MRI and [...] within the head and neck. Signed: Lakshmi Amadormineral [facility] Verified Date/Time: 02/11/2021 16:54:16 MR, MRA, NECK, WITHOUT IV [id number] 16:54:00Reason for exam:->Ischemic Stroke Evaluation [facility] : 1980 Sex: FFINAL REPORT MR, BRAIN, WITHOUT CONTRAST, MR, MRA, BRAIN, WITHOUT CONTRAST, MR, MRA, NECK, WITHOUT IV CONTRAST INDICATION: Stroke, follow upIschemic Stroke Evaluation TECHNIQUE: Multiplanar, multisequence MR imaging of the brain without intravenous contrast.MRA of the head utilizing 3-D shaz-ie-owcawq technique, with 3-D reconstructions.MRA of the neck utilizing 2-D and 3-D ayyx-rd-foimip technique, with 3-D reconstructions. COMPARISON: MRI and [...] Verified Date/Time: 02/11/2021 16:54:16 MR, BRAIN, WITHOUT [id number] 16:54:00Reason for exam:->Ischemic Stroke Evaluation [facility] : 1980 Sex: FFINAL REPORT MR, BRAIN, WITHOUT CONTRAST, MR, MRA, BRAIN, WITHOUT CONTRAST, MR, MRA, NECK, WITHOUT IV CONTRAST INDICATION: Stroke, follow upIschemic Stroke Evaluation TECHNIQUE: Multiplanar, multisequence MR imaging of the brain without intravenous contrast.MRA of the head utilizing 3-D hadg-eh-bitptt technique, with 3-D reconstructions.MRA of the neck utilizing 2-D and 3-D tpgl-zf-vpnwvl technique, with 3-D reconstructions. COMPARISON: MRI and [...] Date/Time: 02/11/2021 16:54:16 MR brain without IV [id number] 16:54:00Interface, External Ris In - 02/11/2021 4:56 PM CDTFINAL REPORT MR, BRAIN, WITHOUT CONTRAST, MR, MRA, BRAIN, WITHOUT CONTRAST, MR, MRA, NECK, WITHOUT IV CONTRAST INDICATION: Stroke, follow upIschemic Stroke Evaluation TECHNIQUE: Multiplanar, multisequence MR imaging of the brain without intravenous contrast.MRA of the head utilizing 3-D rsgc-iv-nccfvj technique, with 3-D reconstructions.MRA of the neck utilizing 2-D and 3-D srfk-mq-bndkgq technique, with 3-D reconstructions. COMPARISON: MRI and [...] Signed: Lakshmi Amador Verified Date/Time: 02/11/2021 16:54:16 [facility] [id number] 16:54:00Interface, External Ris In - 02/11/2021 4:56 PM CDTFINAL REPORT MR, BRAIN, WITHOUT CONTRAST, MR, MRA, BRAIN, WITHOUT CONTRAST, MR, MRA, NECK, WITHOUT IV CONTRAST INDICATION: Stroke, follow upIschemic Stroke Evaluation TECHNIQUE: Multiplanar, multisequence MR imaging of the brain without intravenous contrast.MRA of the head utilizing 3-D icna-dm-okatgp technique, with 3-D reconstructions.MRA of the neck utilizing 2-D and 3-D wskp-mn-rbehyz technique, with 3-D reconstructions. COMPARISON: MRI and [...] Signed: Lakshmi Amador Verified Date/Time: 02/11/2021 16:54:16 [facility] without IV [id number] 16:54:00Interface, External Ris In - 02/11/2021 4:56 PM CDTFINAL REPORT MR, BRAIN, WITHOUT CONTRAST, MR, MRA, BRAIN, WITHOUT CONTRAST, MR, MRA, NECK, WITHOUT IV CONTRAST INDICATION: Stroke, follow upIschemic Stroke Evaluation TECHNIQUE: Multiplanar, multisequence MR imaging of the brain without intravenous contrast.MRA of the head utilizing 3-D jdhr-vx-kxguhv technique, with 3-D reconstructions.MRA of the neck utilizing 2-D and 3-D pguu-vu-jkldet technique, with 3-D reconstructions. COMPARISON: MRI and [...] Lakshmi Amador MDReport Verified Date/Time: 02/11/2021 16:54:16 [facility] HospitalRPR[facility]21-[facility] 14:02:00 Test Item Value Reference Range Interpretation Comments RPR (test code = 53519-6) Nonreactive Nonreactive Lab Interpretation (test code = Normal 88201-6) [facility]estoRPR2021-05-20 14:02:00 Test Item Value Reference Range Interpretation Comments RPR SCREEN (BEAKER) (test code = Nonreactive Nonreactive 420) Hemoglobin [id number] 09:35:00 Test Item Value Reference Range Interpretation Comments Hemoglobin A1C (test code = 4548-4) 6.0 % 4.3-6.1 Lab Interpretation (test code = Normal 46301-6) [facility]estoHEMOGLOBIN [id number] 09:35:00 Test Item Value Reference Range Interpretation Comments HEMOGLOBIN A1C (BEAKER) (test code = 6.0 % 4.3-6.1 368) Rapid drug screen, [id number] 07:26:00 Test Item Value Reference Range Interpretation Comments Barbiturate Screen Negative Negative (test code = 63026-0) Benzodiazepine Screen Negative Negative (test code = 51329-7) Cocaine (Metab.) Negative Negative Screen (test code = 3397-7) Methadone Screen (test Negative Negative code = 40531-3) Opiate Screen (test Negative Negative code = 72586-2) Cannabinoid Screen Negative Negative (test code = 66483-4) Amph/Methamph Screen Negative Negative (test code = 43579-0) Phencyclidine Screen Negative Negative (test code = 80985-5) pH, UA (test code = 6.5 5.0-8.0 5803-2) SOMMER (test code = SOMMER) DRUG CUTOFF CONC.Cocaine 300 ng/mL Cannabinoid 50 ng/mLBenzodiazepine 200 ng/mLBarbiturate 200 ng/mLPhencyclidine 25 ng/mLOpiate 300 ng/mLMethadone 300 ng/mLAmphetamine/ 1000 ng/mL Methamphetamine This assay provides an unconfirmed qualitative test result for the clinical management of patients in emergency situations. Chain of custody not maintained. Some kcbs-ugn-zaxkusa medications, as well as adulterants, may cause inaccurate results. Clinical correlation should be applied. A more comprehensive drug screen or confirmation of a detected drug may be performed upon request.Agriculture Laboratory Technician ID - VIET M Lab Interpretation Normal (test code = 32387-2) [facility]estoRAPID DRUG SCREEN, [id number] 07:26:00 Test Item Value Reference Range Interpretation [...] situations. Chain of custody not maintained. Some iups-kfy-vfjxwvh medications, as well as adulterants, may cause inaccurate results. Clinical correlation should be applied. A more comprehensivedrug screen or confirmation of a detected drug may be performed upon request.[employer] Laboratory Technician ID - VIET MUrinalysis with Microscopic If [id number] 07:11:00 Test Item Value Reference Range Interpretation Comments Color, UA (test code = Light Yellow 5778-6) Clarity, UA (test code = Clear 5767-9) Specific Shanks, UA (test 1.012 1.001-1.035 code = 5811-5) pH, UA (test code = 6.5 5.0-8.0 5803-2) Protein, UA (test code = Negative Negative 63564-6) Glucose, UA (test code = Negative Negative 365) Ketones, UA (test code = Negative Negative 2514-8) Bilirubin, UA (test code = Negative Negative 27905-2) Blood, UA (test code = Small Negative A 90917-6) Nitrite, UA (test code = Negative Negative 5802-4) Leukocytes, UA (test code Small Negative A = 5799-2) Urobilinogen, UA (test 0.2 mg/dL 0.2-1 code = 01447-9) Specimen Source (test code = 2795) SOMMER (test code = SOMMER) [employer] Laboratory Technician ID - [auto]Agriculture Laboratory Technician ID - tech Lab Interpretation (test Abnormal code = 81393-5) [facility]estoUrinalysis Microscopic [id number] 07:11:00 Test Item Value Reference Range Interpretation Comments RBC, UA (test 11 See_Comment [Automated me ssage] code = 32779-8) The system w [facility] generated this result transmitted ref erence [...] UA (test code = The system w [facility] 04079-5) generated this result transmitted ref erence range: /HPF. Th e reference range was not used to int erpret this result as normal/abnormal . SOMMER (test code Agriculture Laboratory Technician ID - tech = SOMMER) [facility]estoURINALYSIS WITH MICROSCOPIC IF [id number] 07:11:00 Test Item Value Reference Range Interpretation [...] = 463) SOURCE(BEAKER) (test code = 2795) [employer] Laboratory Technician ID - [auto]Agriculture Laboratory Technician ID - techURINALYSIS [id number] 07:11:00 Test Item Value Reference Range Interpretation Comments RBC UA (BEAKER) (test code = 519) 11 /HPF WBC UA (BEAKER) (test code = 520) 11 /HPF MUCUS (BEAKER) (test code = 1574) Rare SQUAMOUS EPITHELIAL (BEAKER) (test 3 /HPF code = 516) [facility] Laboratory Technician ID - techDigoxin [id number] 06:22:00 Test Item Value Reference Range Interpretation Comments Digoxin Lvl (test code = <0.30 0.8-2 L 79482-2) SOMMER (test code = SOMMER) [employer] Laboratory Technician ID - MACHELLE L Lab Interpretation (test Abnormal code = 05665-8) [facility] ModestoDIGOXIN [id number] 06:22:00 Test Item Value Reference Range Interpretation Comments DIGOXIN LEVEL (BEAKER) (test code = < ng/mL 0.80-2.00 L 669) [employer] Laboratory Technician ID - MACHELLE CFxvzzlvyvsti6943-83-00 05:58:00 Test Item Value Reference Range Interpretation Comments Homocysteine (test code = 7.3 umol/L 5.1-15.4 44491-4) SOMMER (test code = SOMMER) [employer] Laboratory Technician ID - MACHELLE L Lab Interpretation (test Normal code = 24382-8) [facility] ModestoTSH/Free T4 If [id number] 05:58:00 Test Item Value Reference Range Interpretation Comments TSH (test code = 4.368 See_Comment [Automated 13536-3) message] The system which generated this result transmit aida reference range : 0.350 - 4.940 uIU/mL. The reference range was not used to interpret this result as normal/abnormal . SOMMER (test code = SOMMER) [employer] Laboratory Technician ID - MACHELLE L Lab Interpretation Normal (test code = 20648-3) [facility] ModestoVitamin B12 and Huizbp7414-30-49 05:58:00 Test Item Value Reference Range Interpretation Comments Vitamin B12 (test 557 pg/mL 213-816 code = 2132-9) Folate (test code = 11.20 ng/mL See_Comment [Automa aida 2284-8) message] The system which generated this result transmit aida reference range : >=7.00. The reference range was not used to interpret this result as normal/abnormal . SOMMER (test code = SOMMER) [employer] Laboratory Technician ID - MACHELLE L Lab Interpretation Normal (test code = 88812-9) [facility] ModestoHOMOCYSTEINE2021-05-20 05:58:00 Test Item Value Reference Range Interpretation Comments HOMOCYSTEINE (BEAKER) (test code = 7.3 umol/L 5.1-15.4 642) [employer] Laboratory Technician ID - MACHELLE LTSH/FREE T4 IF [id number] 05:58:00 Test Item Value Reference Range Interpretation Comments THYROID STIMULATING HORMONE 4.368 uIU/mL 0.350-4.940 (BEAKER) (test code = 772) [employer] Laboratory Technician ID - MACHELLE LVITAMIN B12 AND [id number] 05:58:00 Test Item Value Reference Range Interpretation Comments VITAMIN B12 557 pg/mL 213-816 (BEAKER) (test code = 774) FOLATE (BEAKER) 11.20 ng/mL See_Comment [Automated message] (test code = 362) The system which generated this result transmitted ref erence range: >=7.00. The reference range was not used to interpr et this result as normal/abnormal . [employer] Laboratory Technician ID - MACHELLE LC-Reactive Lqrjrvk7782-81-61 04:54:00 Test Item Value Reference Range Interpretation Comments CRP (test code = 676) 0.81 mg/dL 0-0.5 H SOMMER (test code = SOMMER) Agriculture Laboratory Technician ID - MACHELLE L Lab Interpretation (test Abnormal code = 76566-3) [facility] ModestoMAGNESIUM2021-05-20 04:54:00 Test Item Value Reference Range Interpretation Comments MAGNESIUM (BEAKER) 2.1 mg/dL 1.6-2.6 Specimen slightly (test code = 627) hemolyzed Agriculture Laboratory Technician ID - MACHELLE [id number] 04:54:00 Test Item Value Reference Range Interpretation Comments PHOSPHORUS (BEAKER) 4.3 mg/dL 2.3-4.7 Specimen slightly (test code = 604) hemolyzed Agriculture Laboratory Technician ID - MACHELLE LBASIC METABOLIC [id number] 04:54:00 Test Item Value Reference Range Interpretation [...] S NOT APPLICABLE FOR DIALYSIS PATIEN TS. Agriculture Laboratory Technician ID - PIAYA LC-REACTIVE [id number] 04:54:00 Test Item Value Reference Range Interpretation Comments C-REACTIVE PROTEIN (BEAKER) (test 0.81 mg/dL 0.00-0.50 H code = 676) [employer] Laboratory Technician ID - PIAYA LCBC W/PLT COUNT & AUTO [id number] 02:54:00 Test Item Value Reference Range Interpretation [...] = 2801) RAD, CHEST, 1 VIEW, NON [id number] 22:40:00Reason for exam:->strokeShould this be performed at the bedside?->Yes [facility] 1980 Sex: FFINAL REPORT RAD, CHEST, 1 VIEW, NON DEPT TECHNIQUE: Frontal view(s) of the chest. INDICATION: stroke. COMPARISON: 08/20/2018 chest radiograph FINDINGS/IMPRESSION: Lines/Tubes: Unchanged 2-lead pacemaker Lungs/pleura: No focal consolidation or definite interstitial pulmonary edema. No pleural effusion. No pneumothorax. Heart and Mediastinum: Unremarkable. Soft Tissues and Bones: Unremarkable. Signed: Wilmer Nieves Verified Date/Time: 02/10/2021 22:40:02 Reading Location: [address] Transitional Reading Room XR chest 1 view portable / [id number] 22:40:00Interface, External Ris In - 02/10/2021 10:42 PM CDTFINAL REPORT RAD, CHEST, 1 VIEW, NON DEPT TECHNIQUE: Frontal view(s) of the chest. INDICATION: stroke. COMPARISON: 08/20/2018 chest radiograph FINDINGS/IMPRESSION: Lines/Tubes: Unchanged 2-lead pacemaker Lungs/pleura: No focal consolidation or definite interstitial pulmonary edema. No pleural effusion. No pneumothorax. Heart and Mediastinum: Unremarkable. Soft Tissues and Bones: Unremarkable. Signed: Wilmer Nieveseport Verified Date/Time: 02/10/2021 22:40:02 Reading Location: [place] [id number] Transitional Reading Room [facility] & AUTO [id number] 22:16:00 Test Item Value Reference Range Interpretation [...] Range Interpretation Comments BNP (test code = 22440-4) <10 0-100 SOMMER (test code = SOMMER) Agriculture Laboratory Technician ID - BS Lab Interpretation (test Normal code = 22713-9) [facility]estoB-TYPE NATRIURETIC FACTOR (BNP)2021-02-10 22:04:00 Test Item Value Reference Range Interpretation Comments B-TYPE NATRIURETIC PEPTIDE (BEAKER) < pg/mL 0-100 (test code = 700) Agriculture Laboratory Technician ID - BSHigh Sensitivity Troponin I ([facility]/Haley Only)2021-02-10 21:57:00 Test Item Value Reference Range Interpretation Comments Troponin I HS <4 See_Comment [Automated (test code = message] The 07915-6) system which generated this result transmitted reference range : <=17 pg/ml. The reference range was not used to interpret this result as normal/abnormal . SOMMER (test code = Agriculture Laboratory Technician ID - SOMMER) BSThe COMPONENT DESIGN ENGINEER STAT High Sensitivity Troponin-I results should be used in conjunction with other diagnostic information such as ECG, clinical observations and information, and patient symptoms to aid in the diagnosis of RI. Lab Interpretation Normal (test code = 91345-9) [facility]estoHIGH SENSITIVITY TROPONIN [id number] 21:57:00 Test Item Value Reference Range Interpretation Comments HIGH SENSITIVITY < pg/ml See_Comment [Automated message] TROPONIN I (test code = The system which 6608632) generated this result transmitted ref erence range: <=17. Th e reference range was not used to interpr et this result as normal/abnormal . Agriculture Laboratory Technician ID - BSThe COMPONENT DESIGN ENGINEER STAT High Sensitivity Troponin-I results should be used in conjunctionwith other diagnostic information such as ECG, clinical observations and information, and patient symptoms to aid in the diagnosis of RI.Lipid vepkg2072-15-70 21:54:00 Test Item Value Reference Range Interpretation Comments Triglycerides (test 171 mg/dL Specimen code = 2571-8) markedly hemolyzed Cholesterol (test 218 mg/dL Specimen code = 2093-3) markedly hemolyzed HDL (test code = 47 mg/dL 2084-9) LDL Calculated (test 137 mg/dL code = 56702-0) SOMMER (test code = Triglyceride SOMMER) Reference Range: Low Risk <150 Borderline 150-199 High Risk 200-499 Very High Risk >=500 Cholesterol Reference Range: Low Risk <200 Borderline 200-239 High Risk >240 HDL Cholesterol Reference Range: Low Risk >=60 High Risk <40 LDL Cholesterol Reference Range: Optimal <100 Near Optimal 100-129 Borderline 130-159 High 160-189 Very High >=190 Agriculture Laboratory Technician ID - BS [facility]estoLIPID [id number] 21:54:00 Test Item Value Reference Range Interpretation [...] Borderline 130-159 High 160-189 Very High >=190 Agriculture Laboratory Technician ID - BSComprehensive metabolic [id number] 21:52:00 Test Item Value Reference Range Interpretation Comments Protein, Total 8.0 See_Comment Specimen slig htly (test code = hemolyzed 2885-2) [Automated message] The system which generated this result transmit aida reference range : 6.0 - 8.3 gm/dL . The reference range was not u sed to interpret th is result as normal/abnormal . Albumin (test code 4.2 g/dL 3.5-5 Specimen slightly = 24154-0) hemolyzed Alkaline 135 U/L 40-150 Phosphatase (test code = 6768-6) Total Bilirubin 0.2 mg/dL 0.2-1.2 Specimen sli ghtly (test code = hemolyzed 1974-2) Sodium (test code = 139 meq/L 804-582 7091-2) Potassium (test 4.5 meq/L 3.5-5.1 Specimen sli ghtly code = 2823-3) hemolyzed Chloride (test code 103 meq/L 98-107 = 2075-0) CO2 (test code = 25 meq/L 22-29 2027-9) BUN (test code = 9 mg/dL 7-21 3094-0) Creatinine (test 0.78 mg/dL 0.57-1.25 Specimen sl ightly code = 2160-0) hemolyzed Glucose (test code 105 mg/dL 70-105 = 2345-7) Calcium (test code 9.6 mg/dL 8.4-10.2 = 82028-3) AST (test code = 28 U/L 5-34 Specimen sl ightly 1920-8) hemolyzed ALT (test code = 52 U/L 6-55 Specimen sl ightly 1742-6) hemolyzed EGFR (test code = 82 mL/min/1.73 [place] [address]-2) NOT ACCURATE CREATININE CLEARANCE IN PREDICTING GLOMERULAR FILTRATION RATE . ESTIMATED GFR I S NOT APPLICABLE FOR DIALYSIS PATIEN TS. SOMMER (test code = Agriculture Laboratory Technician ID - BS SOMMER) [facility] (CK)2021-02-10 21:52:00 Test Item Value Reference Range Interpretation Comments Total CK (test code = 70 U/L 29-200 2157-6) SOMMER (test code = SOMMER) Agriculture Laboratory Technician ID - BS Lab Interpretation (test Normal code = 65596-4) [facility]estoMAGNESIUM2021-05-19 21:52:00 Test Item Value Reference Range Interpretation Comments MAGNESIUM (BEAKER) 2.2 mg/dL 1.6-2.6 Specimen slightly (test code = 627) hemolyzed Agriculture Laboratory Technician ID - IAJCFUJIYWMT5805-78-40 21:52:00 Test Item Value Reference Range Interpretation Comments PHOSPHORUS (BEAKER) 4.4 mg/dL 2.3-4.7 Specimen slightly (test code = 604) hemolyzed Agriculture Laboratory Technician ID - BSCOMPREHENSIVE METABOLIC [id number] 21:52:00 Test Item Value Reference Range Interpretation [...] S NOT APPLICABLE FOR DIALYSIS PATIEN TS. Agriculture Laboratory Technician ID - BSCREATINE KINASE (CK)2021-02-10 21:52:00 Test Item Value Reference Range Interpretation Comments CREATINE KINASE TOTAL (BEAKER) (test 70 U/L 29-200 code = 380) Agriculture Laboratory Technician ID - [id number] 21:46:00 Test Item Value Reference Range Interpretation Comments PTT (test code = 87710-5) 30.5 See_Comment [ Automated message] The system [employer] generated this result transmitted ref erence range: 22.5 - 3 6.0 seconds. The re ference range was not u sed to interpret this result as normal/abnor mal. Lab Interpretation (test Normal code = 92890-6) [facility] ModestoLactic acid, [id number] 21:46:00 Test Item Value Reference Range Interpretation Comments Lactate, Venous (test 1.96 mmol/L 0.5-2.2 Specim en code = 2872) markedly hemolyzed SOMMER (test code = SOMMER) Agriculture Laboratory Technician ID - BS Lab Interpretation Normal (test code = 58978-2) [facility] ModestoAPTT2021-05-19 21:46:00 Test Item Value Reference Range Interpretation Comments PARTIAL THROMBOPLASTIN TIME 30.5 seconds 22.5-36.0 (BEAKER) (test code = 760) LACTIC ACID, [id number] 21:46:00 Test Item Value Reference Range Interpretation Comments LACTATE BLOOD VENOUS 1.96 mmol/L 0.50-2.20 Specime n markedly (2) (BEAKER) (test hemolyzed code = 2872) Agriculture Laboratory Technician ID - BSProthrombin time/WWF6491-09-28 21:45:00 Test Item Value Reference Interpretation Comments [...] valves. Lab Interpretation Normal (test code = 90142-0) [facility] ModestoPROTHROMBIN TIME/[id number] 21:45:00 Test Item Value Reference Range Interpretation Comments PROTIME (BEAKER) 12.7 seconds 11.9-14.2 (test code = 759) INR (BEAKER) (test 0.98 See_Comment [Automat ed message] code = 370) The system eziCONEXic h generated this result transmitted ref erence range: <=5.90. The reference range was not used to int erpret this result as normal/abnormal . RECOMMENDED COUMADIN/WARFARIN INR THERAPY RANGESSTANDARD DOSE: 2.0 - 3.0 Includes: PROPHYLAXIS forvenous thrombosis, systemic embolization; TREATMENT for venous thrombosis and/or pulmonary embolus.HIGH RISK: Target INR is 2.5-3.5 for patients with mechanical heart valves.POC-Glucose gxqti3071-62-33 21:39:00 Test Item Value Reference Range Interpretation Comments POC-Glucose Meter (test 93 mg/dL 70-110 : TE STED AT [facility] code = 1532) [address] [place], [address]: Agriculture Laboratory Technician/Techni rhonda ID = [id number] for AILYN JAVIER Lab Interpretation (test Normal code = 96165-5) [facility]estoPOCT-GLUCOSE [id number] 21:39:00 Test Item Value Reference Range Interpretation Comments POC-GLUCOSE METER 93 mg/dL 70-110 : TESTED A T [facility] 6720 (BEAKER) (test code = [place], 1538) [address]: Agriculture Laboratory Technician/Techni rhonda ID = [id number] for GERTRUDE SHAY [id number] 15:45:00 Test Item Value Reference Range Interpretation Comments SURG (test code = SURG) RUN DATE: 09/30/20 [facility] - LAB PAGE 1 RUN TIME: 1545 Specimen Inquiry RUN USER: INTERFACE PATIENT: ADAM MARSH LOC: GA #: [id number] AGE/SX: 40/F ROOM: RE09/29/20[facility] DR: Linus Boone MD : 82 BED: DIS: STATUS: [facility] TLOC: SPEC #: [id number]:[id number] RECD: 09/29/20 STATUS: MACIEL REChapis #: [id number] WU: 09/29/20 [facility] DR: Linus Boone MD ENTERED: 09/29/20 SP TYPE: SURG OTHR DR: Undefined Provider ORDERED: SURG PATH LVL 4 COPIES TO: Linus Boone MD [address] [place] [address] Undefined Provider HISTOLOGY: TISSUE ID BLK PCS DHIRAJ LEV PROCEDURE DISPOSITION ____ ___ ___ ___ STOMACH, NOS A 1 2 PROCEDURES: SURG PATH LVL 4 (09/29/20) TISSUES: A. STOMACH, NOS - GASTRIC BIOPSY CLINICAL HISTORY R10.13, K21.9, K92.0, R14.0, R11.2, R19.7, R19.4 CPT CODES CPT CODE(S): 06876 , , , , , , FINAL DIAGNOSIS Stomach, biopsy: MILD CHRONIC GASTRITIS NEGATIVE FOR INTESTINAL METAPLASIA, DYSPLASIA, OR MALIGNANCY NEGATIVE FOR HELICOBACTER PYLORI ORGANISMS GROSS DESCRIPTION Gastric biopsy. Received in formalin are two wilkinson tissue fragments, 0.4 cm each, all as A. bk/nr Grossing performed at [facility] Pathology, [address] [facility] [address] [address], [address], [place] [address]. Fire Safety Inspector: Aditya Hanson M.D. CONTINUED ON NEXT PAGE RUN DATE: 09/30/20 [facility] PAGE 2 RUN TIME: 1545 Specimen Inquiry RUN USER: INTERFACE SPEC #: [id number] PATIENT: ADAM MARSH #[id number] (Continued) MICROSCOPIC DESCRIPTION Gastric biopsy. Sections demonstrate gastric mucosa with mild chronic inflammation. No dysplasia or malignancy is identified. No evidence of Helicobacter pylori organisms or intestinal metaplasia is seen. Signed SIGNATURE ON FILE Hector Issa 09/30/20 1545 END OF REPORT COVID 19 INHOUSE [id number] 13:41:00 Test Item Value Reference Range Interpretation Comments COVID 19 INHOUSE AG NEGATIVE Negative Per marino facturer, (test code = negative result s should [id number]) be treated aspr esumptive and, if inconsi [...] symptoms co nsistent with COVID-19. BASIC METABOLIC [id number] 13:40:00 Test Item Value Reference Range Interpretation [...] MG/DL 8.5-10.1 N - XR CHEST 1 [id number] 13:33:00 [facility] : 1980 Sex: F Name: ADAM MARSH [facility] : 05/26 Age/S: 40 / F [address] [place] Unit #: [id number] Loc: [place] [address] Phys: Linus Boone MD Acct: [id number] Dis Date: Status: PRE [facility] PHONE #: [phone] Exam Date: 09/28/2020 1326 FAX #: Reason: PREOP EXAMS: CPT: [id number] XR CHEST 1 V 25547 Fluoro Time: DAP (Gy m2): Air Kerma [...] normal. IMPRESSION: No acute cardiopulmonary process. at 4963 Reported and signed by: Lynda Pitts M.D. CC: Linus Boone MD PAGE 1 Signed Report Name: ADAM MARSHland : 1980 Age/S: 40 / F [address] [place] [address] Unit #: [id number] Loc: [place] [address] Phys: Linus Boone MD Acct: [id number] Dis Date: Status: PRE [facility] PHONE #: [phone] Exam Date: 09/28/2020 1327 FAX #: Reason: PREOP EXAMS: CPT: [id number] XR CHEST 1 V 37966 Fluoro Time: DAP (Gy m2): Air Kerma (mGy): <Continued> Technologist: Shari Davila RT(R)(CT) Trnscb Date/Time: 09/28/2020 (2383) 16 Orig Print D/T: S: 09/28/2020 (1518) PAGE 2 SignedReportPROTHROMBIN [id number] 13:29:00 Test Item Value Reference Range Interpretation Comments PT PATIENT (test code = PTP) 10.6 SECONDS 9.3-12.9 N INTERNATIONAL NORMAL RATIO 0.95 INR Unit 0.8-1.2 N (test code = INR) THROMBOPLASTIN TIME [id number] 13:29:00 Test Item Value Reference Range Interpretation Comments THROMBOPLASTIN TIME PARTIAL 28.0 SECONDS 26-35 N (test code = PTT) CBC W/AUTO [id number] 13:26:00 Test Item Value Reference Range Interpretation [...] code NO DIFF/SCN CRITERIA = MDIFF) POCT-GLUCOSE [id number] 10:22:00 Test Item Value Reference Range Interpretation Comments POC-GLUCOSE METER 102 mg/dL 70-[address] [facility] 6720 (ARNOL) (test code = [place] 1538) [address] MR, MRA, BRAIN, WITHOUT [id number] 09:32:00Reason for exam:->Ischemic Stroke EvaluationFINAL REPORT MRA Head CLINICAL HISTORY: Ischemic Stroke TECHNIQUE: MRA of the head utilizing 3-D qikw-ok-syvtms technique, with 3-D reconstructions. COMPARISON: None FINDINGS: There is no evidence of intracranial aneurysm, focal stenosis, or major branch vessel occlusion. IMPRESSION: No evidence for a major [place] proximal branch vessel occlusion. MRA Neck CLINICAL HISTORY: Ischemic Stroke TECHNIQUE: MRA of the neck utilizing 2-D and 3-D diaw-ql-exifcr technique, with 3-D reconstructions. COMPARISON: None FINDINGS: The carotid arteries in the neck are patent including their bifurcations. There is antegrade flow in the vertebral arteries in the neck. IMPRESSION: No evidence of hemodynamically significant stenosis in the cervical carotid or vertebral arteries by NASCET criteria. Signed: Santos Winn [facility] Verified Date/Time: 08/21/2018 09:32:09 Reading Location: [address] Neuro Reading Room MR, MRA, NECK, WITHOUT IV [id number] 09:32:00Reason for exam:->Ischemic Stroke EvaluationFINAL REPORT MRA Head CLINICAL HISTORY: Ischemic Stroke TECHNIQUE: MRA of the head utilizing 3-D rauj-ak-kecxwf technique, with 3-D reconstructions. COMPARISON: None FINDINGS: There is no evidence of intracranial aneurysm, focal stenosis, or major branch vessel occlusion. IMPRESSION: No evidence for a major [place] proximal branch vessel occlusion. MRA Neck CLINICAL HISTORY: Ischemic Stroke TECHNIQUE: MRA of the neck utilizing 2-D and 3-D hrxv-xk-qfyghb technique, with 3-D reconstructions. COMPARISON: None FINDINGS: The carotid arteries in the neck are patent including their bifurcations. There is antegrade flow in the vertebral arteries in the neck. IMPRESSION: No evidence of hemodynamically significant stenosis in the cervical carotid or vertebral arteries by NASCET criteria. Signed: Santos Winn Verified Date/Time: 08/21/2018 09:32:09 Reading Location: [address] Neuro Reading Room MR, BRAIN, WITHOUT [id number] 09:25:00Reason for exam:- >Ischemic Stroke EvaluationFINAL REPORT [...] Winn Verified Date/Time: 08/21/2018 09:25:25 Reading Location: [address] Neuro R eading Room POCT-GLUCOSE [id number] 21:26:00 Test Item Value Reference Range Interpretation Comments POC-GLUCOSE METER 119 mg/dL 70-110 H TESTED AT [place] [address] ([facility]) (test code = AYLIN Rivera [facility] 1538) [address] POCT-GLUCOSE [id number] 18:03:00 Test Item Value Reference Range Interpretation Comments POC-GLUCOSE METER 119 mg/dL 70-110 H TESTED AT [place] [address] ([facility]) (test code = [facility] 1538) [address] POCT-GLUCOSE [id number] 12:39:00 Test Item Value Reference Range Interpretation Comments POC-GLUCOSE METER 120 mg/dL 70-[address] [facility] 6720 (BEAKER) (test code = AYLIN Rivear [facility] 1538) [address] RAD, CHEST, 1 VIEW, NON [id number] 12:04:00Reason for exam:->To Locate Heart Device (Pacemaker)Should [...] MDReport Verified Date/Time: 08/20/2018 12:04:06 Reading Location: [facility] Radiology Reading Room POCT-GLUCOSE [id number] 09:17:00 Test Item Value Reference Range Interpretation Comments POC-GLUCOSE METER 121 mg/dL 70-110 H TESTED AT [place] [address] (BEAKER) (test code = AYLIN Rivera [facility] 1538) [address] BASIC METABOLIC [id number] 06:56:00 Test Item Value Reference Range Interpretation [...] NOT APPLICABLE FOR DIALYSIS PATIEN TS. POCT-GLUCOSE [id number] 21:09:00 Test Item Value Reference Range Interpretation Comments POC-GLUCOSE METER 109 mg/dL 70-110 TESTED AT [place] [address] ([facility]) (test code = [facility] 1538) [address] POCT-GLUCOSE [id number] 17:15:00 Test Item Value Reference Range Interpretation Comments POC-GLUCOSE METER 117 mg/dL 70-110 H TESTED AT [place] [address] ([facility]) (test code = [facility] 1538) [address] VITAMIN B12 AND [id number] 06:39:00 Test Item Value Reference Range Interpretation Comments VITAMIN B12 (BEAKER) (test code = 524 pg/mL 213-816 774) FOLATE (BEAKER) (test code = 362) 13.5 ng/mL >=7.0 BASIC METABOLIC [id number] 05:48:00 Test Item Value Reference Range Interpretation [...] S NOT APPLICABLE FOR DIALYSIS PATIEN TS. [id number] 15:42:00 Test Item Value Reference Range Interpretation Comments RPR SCREEN (BEAKER) (test code = Nonreactive Nonreactive 420) HEMOGLOBIN [id number] 09:14:00 Test Item Value Reference Range Interpretation Comments HEMOGLOBIN A1C (BEAKER) (test code = 5.3 % 4.3-6.1 368) TSH/FREE T4 IF [id number] 04:49:00 Test Item Value Reference Range Interpretation Comments THYROID STIMULATING HORMONE 3.18 uIU/mL 0.35-4.94 (BEAKER) (test code = 772) BASIC METABOLIC [id number] 04:38:00 Test Item Value Reference Range Interpretation [...] NOT APPLICABLE FOR DIALYSIS PATIEN TS. LIPID [id number] 04:38:00 Test Item Value Reference Range Interpretation [...] 130-159 High 160-189 Very High >=190HEPATIC FUNCTION [id number] 04:38:00 Test Item Value Reference Range Interpretation [...] (test code = 413) AFB Culture and [id number] 13:24:00Specimen/Source: Wound/PACEMAKERCollected: 09/05/2017 19:45 Status: Final Last Updated: 11/01/2017 13:24 ACR-Fofws-Dybiskbejirs (Final) (Final) 09/07/17 No acid fast bacill seen on direct smear Culture Result (Final) (Final) 11/01/17 No growth of AFB at six (6) weeksFungus Culture with [id number] 12:12:00 Specimen/Source: Wound/PACEMAKERCollected: 09/05/2017 19:45 Status: Final Last Updated: 10/22/2017 12:12 Fungal Smear Result (Final) (Final) 09/06/17 No yeast or hyphae seen Culture Result (Final) (Final) 10/22/17 No fungus isolated at 6 weeksCulture, Blood [id number] 08:23:00Specimen: BloodCollected: 09/04/2017 20:30 Status: Final Last Updated: 09/10/2017 08:23 Culture Result (Final) (Final) No Growth After 5 DaysCulture, Blood [id number] 08:23:00Specimen: BloodCollected: 09/04/2017 20:15 Status: Final Last Updated: 09/10/2017 08:23 Culture Result (Final) (Final) No Growth After 5 DaysCulture, Wound [id number] 08:52:00Specimen: WoundCollected: 09/05/2017 19:45 Status: Final Last Updated: 09/08/2017 08:52 Gram Stain (Final) (Final) 09/06/17 No organisms seen, Few WBC's Culture Result (Final) (Final) 09/08/17 Anaerobic culture:No anaerobes isolated at 3 days Isolate (Final) (Final) 09/07/17Few Staph-coag positive Isolate Staph-coag positive JERMAINE (mcg/ml) Amoxicillin/Clav (AUG)<=4/2 Susceptible Ampicillin (AM) >8 Resistant Ampicillin/Sulb (A/S) <=8/4 Susceptible Cefazolin (CFZ) <=4 Susceptible Ceftriaxone (CREDENTIALING SPECIALIST) <=4 Susceptible Chloramphenicol (C) <=8 Susceptible Ciprofloxacin (CP) <=1 Susceptible Clindamycin (CM) 0.5 Susceptible Erythromycin (E) <=0.25 Susceptible Gentamicin (GM) <=1 Susceptible Imipenem (IMP) <=4 Susceptible Levofloxacin (LEV) <=0.5 Susceptible Linezolid (LNZ) 4 Susceptible Oxacillin (OX1) 0.5 Susceptible Penicillin (P) >8 Resistant Rifampin (RA) <=1 Susceptible Tetracycline (TE) <=1 Susceptible Trimethoprim/Sulfa <=0.5/9.Susceptible (SXT) 5 Vancomycin (VA) 2 SusceptibleRenal [id number] 08:51:00 Test Item Value Reference Range Interpretation [...] National Kidney Foundation,http ://nkd ep.nih.gov CBC with [id number] 07:39:00 Test Item Value Reference Range Interpretation [...] code = ALYMPH) 1.7 K/cumm 0.5-4.6 N Laurel Abs (test code = AMONO) 0.3 K/cumm 0.0-1.2 N Eos Abs (test code = AEOS) 0.29 K/cumm 0.00-0.74 N Baso Abs (test code = ABASO) 0.0 K/cumm 0.00-0.21 N Vancomycin, [id number] 12:33:00 Test Item Value Reference Range Interpretation Comments Vanco, Trou (test code = VANTR) 7.9 ug/mL 10.0-20.0 L Magnesium, [id number] 06:37:00 Test Item Value Reference Range Interpretation Comments Magnesium (test code = MG) 2.4 mg/dL 1.7-2.5 N Renal [id number] 06:29:00 Test Item Value Reference Range Interpretation [...] National Kidney Foundation,http ://nkd ep.nih.gov BHCG, Serum, [id number] 06:26:00 Test Item Value Reference Range Interpretation Comments Preg Qual [Se] (test code = BSHCG) Negative Negative N CBC with [id number] 06:24:00 Test Item Value Reference Range Interpretation [...] code = ALYMPH) 1.6 K/cumm 0.5-4.6 N Laurel Abs (test code = AMONO) 0.4 K/cumm 0.0-1.2 N Eos Abs (test code = AEOS) 0.18 K/cumm 0.00-0.74 N Baso Abs (test code = ABASO) 0.0 K/cumm 0.00-0.21 N XR CHEST 1 [id number] 16:29:55XR CHEST 1 VIEWLOCATION: [id number]: None.INDICATION: REVIEW PICC LINE PLACEMENTDISCUSSION:AP chest and [...] = TSH) 3.44 mIU/mL 0.270-4.200 N Lipid [id number] 05:47:00 Test Item Value Reference Range Interpretation Comments Cholesterol (test 160 mg/dL 0-200 N code = CHOL) Triglycerides (test 126 mg/dL 9-200 N code = TRIG) HDL (test code = 35 mg/dL 50-60 L HDL) Chol/HDL (test code 4.6 Ratio 0.0-4.4 H = CHOLPHDL) LDL, Calculated 100 0-130 N (NOTE)RISK O F HEART (test code = LDLC) DISEASEPu blished by [place] Heart AssociationAnal yte Optim al Boderline Increased RiskC HOL <200 200-239 >240TRI G <150 150-199 >200HDL Male: >60 <40HDL Female: >60 <50 LDL < 100 130-15 9 >160 LDL NEAR OPTIMAL IS 100- 129 VLDL (test code = 25 mg/dL 5-40 N VLDL) LDL/HDL (test code = 3 LDLPHDL) Basic Metabolic [id number] 05:47:00 Test Item Value Reference Range Interpretation [...] ofage have not been validated by th ramin MDRD study and horace aponte be interpretedwith caution.eGFR Re sult Interpretation: eGFR > or = 60 is in t he Normal RangeeGF R < 60 may mean kidney diseaseeGFR < 1 5 may mean kidney failureRange s recommended by the National Kidney Foundation,http ://nkd ep.nih.gov Magnesium, [id number] 05:47:00 Test Item Value Reference Range Interpretation Comments Magnesium (test code = MG) 2.3 mg/dL 1.7-2.5 N CBC with [id number] 05:36:00 Test Item Value Reference Range Interpretation [...] code = ALYMPH) 2.2 K/cumm 0.5-4.6 N Laurel Abs (test code = AMONO) 0.3 K/cumm 0.0-1.2 N Eos Abs (test code = AEOS) 0.24 K/cumm 0.00-0.74 N Baso Abs (test code = ABASO) 0.0 K/cumm 0.00-0.21 N Partial Thromboplastin [id number] 21:26:00 Test Item Value Reference Range Interpretation Comments aPTT (test code = PTT) 29.00 seconds 24.39-37.25 N Prothrombin [id number] 21:26:00 Test Item Value Reference Range Interpretation Comments PT (test code = PT) 10.70 seconds 9.78-13.35 N INR (test code = INR) 0.95 Ratio 0.6-1.2 N Comprehensive Metabolic [id number] 21:23:00 Test Item Value Reference Range Interpretation [...] National Kidney Foundation,http ://nkd ep.nih.gov CBC with [id number] 21:16:00 Test Item Value Reference Range Interpretation [...] code = ALYMPH) 2.2 K/cumm 0.5-4.6 N Laurel Abs (test code = AMONO) 0.4 K/cumm 0.0-1.2 N Eos Abs (test code = AEOS) 0.17 K/cumm 0.00-0.74 N Baso Abs (test code = ABASO) 0.1 K/cumm 0.00-0.21 N
[2021-11-07 04:15] LABS: Hematocrit 40.9 % (36.0-45.0); MPV 8.2 fL (7.6-11.3); RBC Red Blood Cell Count 4.79 M/uL (3.86-4.86)
[2021-11-07] MEDS ORDERED: predniSONE 20 MG TAB ONE (04:30)
[2021-11-07] MEDS ORDERED: METHYLPREDNISOLONE 125 MG INJ ONE (04:30)
[2021-11-07] MEDS ORDERED: LEVALBUTEROL 1.25 MG/3 ML NEB ONE (04:31)
[2021-11-07] MEDS ORDERED: IPRATROPIUM BROM 0.5MG/2.5ML ONE (04:31)
[2021-11-07] MEDS ORDERED: FAMOTIDINE 20 MG/2 ML VIAL IV ONE (04:31)
[2021-11-07 04:34] LABS: Protime INR 0.88
[2021-11-07 05:03] LABS: ALT/SGPT 34 U/L (12-78); AST/SGOT 29 U/L (15-37); Albumin 3.5 g/dL (3.4-5.0); Alkaline Phosphatase 119 U/L (45-117); BUN Blood Urea Nitrogen 11 mg/dL (7-18); Bicarbonate 26 mmol/L (21-32); Bilirubin Direct < 0.1 mg/dL (0-0.2); Bilirubin Total 0.2 mg/dL (0.2-1.0); Glucose Level 102 mg/dL (74-106); Magnesium 2.5 mg/dL (1.8-2.4); NT PRO-BNP 16 pg/mL (<125); Potassium 4.8 mmol/L (3.5-5.1); Protein, Total 7.5 g/dL (6.4-8.2); Sodium Level 139 mmol/L (136-145)
[2021-11-07 05:24] LABS: SARS-COV-2 RT PCR NEGATIVE (NEGATIVE)
--- NOTE | 2021-11-07 05:24 | EDPHYS ---
Physician Documentation [facility] Name: Jenni Draper Age: 41 yrs Sex: Female : 1980 Arrival Date: 11/07/2021 Time: 01:57 Bed 6 Private MD: Caio Polanco HPI: 11/07 03:25 This 41 yrs old Female presents to ER via Ambulatory with complaints of taty Cough, Breathing Difficulty. 03:25 The patient or guardian reports airway noise, cough, difficulty breathing. Onset: The taty symptoms/episode began/occurred 3 day(s) ago. Severity of symptoms: At their worst the symptoms were mild, in the emergency department the symptoms are unchanged. Modifying factors: The symptoms are alleviated by nothing, the symptoms are aggravated by nothing. Associated signs and symptoms: The patient has no apparent associated signs or symptoms. The patient has not experienced similar symptoms in the past. 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 N/A - Irregular menses mk Historical: - Allergies: 02:43 Adhesives; mk 02:43 Aspirin; mk 02:43 FISH PRODUCT DERIVATIVES; mk 02:43 Bactrim; mk 02:43 Benadryl; mk 02:43 Diltiazem; mk 02:43 Cipro IV; mk 02:43 Clindamycin; mk 02:43 coconut oil; mk 02:43 Detrol; mk 02:43 Doxycycline; mk 02:43 GABAPENTIN; mk 02:43 Morphine; mk 02:43 Hydrocodone-Acetaminophen; mk 02:43 Iodine; mk 02:43 ivabradine; mk 02:43 Latex, Natural Rubber; mk 02:43 PENICILLINS; mk - Home Meds: 02:43 albuterol sulfate 2.5 mg /3 mL (0.083 %) Inhl nebu 3 mL 3 times per day [Active]; mk apixaban 5 mg oral tab 1 tab 2 times per day [Active]; azithromycin 250 mg Oral tab 1 tab once daily [Active]; benzonatate 100 mg oral cap 1 cap 3 times per day [Active]; carvedilol 25 mg oral tab 1 tab 2 times per day [Active]; Crestor 5 mg oral tab 1 tab once daily [Active]; digoxin 125 mcg (0.125 mg) Oral tab 1 tab once daily [Active]; Lasix 20 mg Oral tab 1 tab [Active]; Keppra 750 mg Oral tab 1 tab [Active]; loratadine 10 mg oral tab 1 tab once daily [Active]; pregabalin 50 mg Oral cap 1 cap 3 times per day [Active]; Nexium 20 mg Oral cpDR 1 cap once daily [Active]; nitroglycerin 0.4 mg Oral [Active]; Ubrelvy 100 mg oral tab 1 tab [Active]; venlafaxine 150 mg oral cp24 1 cap once daily [Active]; Vraylar 3 mg oral cap 1 cap once daily [Active]; Xanax 0.25 mg Oral tab 1 tab [Active]; - Immunization history:: Adult Immunizations up to date. - Social history:: Smoking status: Patient reports the use of cigarette tobacco products. ROS: 03:27 Constitutional: Negative for fever, chills, and weight loss, Eyes: Negative for injury, atty pain, redness, and discharge, ENT: Negative for injury, pain, and discharge, Neck: Negative for injury, pain, and swelling, Cardiovascular: Negative for chest pain, palpitations, and edema, Abdomen/GI: Negative for abdominal pain, nausea, vomiting, diarrhea, and constipation, Back: Negative for injury and pain, : Negative for injury, bleeding, discharge, and swelling, MS/Extremity: Negative for injury and deformity, Skin: Negative for injury, rash, and discoloration, Neuro: Negative for headache, weakness, numbness, tingling, and seizure, Psych: Negative for depression, anxiety, suicide ideation, homicidal ideation, and hallucinations, Allergy/Immunology: Negative for hives, rash, and allergies, Endocrine: Negative for neck swelling, polydipsia, polyuria, polyphagia, and marked weight changes, Hematologic/Lymphatic: Negative for swollen nodes, abnormal bleeding, and unusual bruising. 03:27 Respiratory: Positive for cough, with no reported sputum. Exam: 03:27 Constitutional: This is a well developed, well nourished patient who is awake, alert, taty and in no acute distress. Head/Face: Normocephalic, atraumatic. Eyes: Pupils equal round and reactive to light, extra-ocular motions intact. Lids and lashes normal. Conjunctiva and sclera are non-icteric and not injected. Cornea within normal limits. Periorbital areas with no swelling, redness, or edema. ENT: Nares patent. No nasal discharge, no septal abnormalities noted. Tympanic membranes are normal and external auditory canals are clear. Oropharynx with no redness, swelling, or masses, exudates, or evidence of obstruction, uvula midline. Mucous membranes moist. Neck: Trachea midline, no thyromegaly or masses palpated, and no cervical lymphadenopathy. Supple, full range of motion without nuchal rigidity, or vertebral point tenderness. No Meningismus. Chest/axilla: Normal chest wall appearance and motion. Nontender with no deformity. No lesions are appreciated. Cardiovascular: Regular rate and rhythm with a normal S1 and S2. No gallops, murmurs, or rubs. Normal PMI, no JVD. No pulse deficits. Abdomen/GI: Soft, non-tender, with normal bowel sounds. No distension or tympany. No guarding or rebound. No evidence of tenderness throughout. Back: No spinal tenderness. No costovertebral tenderness. Full range of motion. Female : Normal external genitalia. Skin: Warm, dry with normal turgor. Normal color with no rashes, no lesions, and no evidence of cellulitis. MS/ Extremity: Pulses equal, no cyanosis. Neurovascular intact. Full, normal range of motion. Neuro: Awake and alert, GCS 15, oriented to person, place, time, and situation. Cranial nerves II-XII grossly intact. Motor strength 5/5 in all extremities. Sensory grossly intact. Cerebellar exam normal. Normal gait. Psych: Awake, alert, with orientation to person, place and time. Behavior, mood, and affect are within normal limits. 03:27 Respiratory: mild respiratory distress is noted, Respirations: normal, Breath sounds: bronchial sounds, that are mild, that are moderate, rhonchi, that are mild, Respiratory rate: 18 04:24 ECG was reviewed by the Attending Physician. taty 04:49 Musculoskeletal/extremity: DVT Exam: No signs of deep vein thrombosis. no pain, no taty swelling, no tenderness, negative Homans' sign noted on exam, no appreciated bluish discoloration, no erythema, no increased warmth. Vital Signs: 02:32 BP 136 / 95; Pulse 105; Resp 22; Temp 98.0(O); Pulse Ox 100% ; lt3 02:42 BP 127 / 103; Pulse 97; Resp 18; Pulse Ox 99% on R/A; mk 03:30 BP 102 / 86; Pulse 97; Resp 18; Pulse Ox 98% on R/A; mk 04:35 BP 109 / 78; Pulse 94; Resp 21; Pulse Ox 98% ; mk Kvng Coma Score: 03:30 Eye Response: spontaneous(4). Verbal Response: oriented(5). Motor Response: obeys mk commands(6). Total: 15. 04:35 Eye Response: spontaneous(4). Verbal Response: oriented(5). Motor Response: obeys mk commands(6). Total: 15. MDM: 03:13 Patient medically screened. [facility] 03:30 Differential Diagnosis: Bronchitis Influenza Upper Respiratory Infection Sinusitis taty Pharyngitis Otitis Media Viral Syndrome Pneumonia Tracheal Injury. Data reviewed: vital signs, nurses notes, lab test result(s), EKG, radiologic studies, plain films. 11/07 03:01 Order name: Basic Metabolic Panel; Complete Time: 05:18 pm11/07 03:01 Order name: CBC with Diff; Complete Time: 04:43 pm11/07 03:01 Order name: LFT's; Complete Time: 05:18 pm11/07 03:01 Order name: Magnesium; Complete Time: 05:18 pm11/07 03:01 Order name: NT PRO-BNP; Complete Time: 05:18 pm11/07 03:01 Order name: PT-INR; Complete Time: 04:43 pm11/07 03:01 Order name: Troponin HS; Complete Time: 05:18 pm11/07 03:01 Order name: XRAY Chest (1 view) [facility] 11/07 03:25 Order name: COVID-19/FLU A+B/RSV (Document "Date of Onset" if Symptomatic) [facility] 11/07 03:25 Order name: Digoxin; Complete Time: 05:23 [facility] 11/07 03:01 Order name: EKG; Complete Time: 03:02 pm11/07 03:01 Order name: Cardiac monitoring; Complete Time: 04:38 pm11/07 03:01 Order name: EKG - Nurse/Tech; Complete Time: 03:48 pm11/07 03:01 Order name: IV Saline Lock; Complete Time: 03:57 pm11/07 03:01 Order name: Labs collected and sent; Complete Time: 03:57 pm1 11/07 03:01 Order name: O2 Per Protocol; Complete Time: 03:48 pm1 11/07 03:01 Order name: O2 Sat Monitoring; Complete Time: 03:48 pm1 EC:24 Rate is 96 beats/min. Rhythm is regular. QRS [place] is Normal. [place] interval is normal. QRS taty interval is normal. QT interval is normal. No Q waves. T waves are Normal. No ST changes noted. Clinical impression: Normal ECG and No evidence of ischemia. Interpreted by me. Reviewed by me. Administered Medications: 04:42 Drug: Xopenex (levalbuterol) 3.75 mg Route: Inhalation; al4 05:29 Follow up: Response: No adverse reaction al4 04:42 Drug: AtroVENT (ipratropium) Aerosol 0.5 mg Route: Inhalation; al4 05:29 Follow up: Response: No adverse reaction al4 04:42 Drug: Pepcid (famotidine) 20 mg Route: IVP; Site: right forearm; al4 05:29 Follow up: Response: No adverse reaction al4 04:42 Drug: SOLU-Medrol (methylPrednisoLONE) 125 mg Route: IVP; Site: right forearm; al4 05:29 Follow up: Response: No adverse reaction al4 04:42 Drug: predniSONE 20 mg Route: PO; al4 05:29 Follow up: Response: No adverse reaction al4 06:03 Drug: Tussionex Pennkinetic ER (chlorpheniramine-hydrocodone) Suspension 5 ml {Note: al4 patient states she does not have an allergy to hydrocodone and physician clarified with patient as well .} Route: PO; 06:34 Follow up: Response: No adverse reaction mk Disposition Summary: 11/07/21 05:24 Discharge Ordered Location: Home taty Problem: new taty Symptoms: have improved taty Condition: Stable taty Diagnosis - Bronchitis, not specified as acute or chronic taty - Cough tayt Followup: taty - With: Private Physician - When: 2 - 3 days - Reason: Recheck today's complaints, Continuance of care, Re-evaluation by your physician Followup: taty - With: - When: 2 - 3 days - Reason: Recheck today's complaints, Re-evaluation by your physician Discharge Instructions: - Discharge Summary Sheet taty - Acute Bronchitis, Adult taty - Chronic Bronchitis, Adult taty - Upper Respiratory Infection, Adult taty - Cool Mist Vaporizer taty - Cough, Adult, [id number] taty - Cough, Adult [facility] Forms: - Medication Reconciliation Form [facility] - Thank You Letter taty - Antibiotic Education [facility] - Prescription Opioid Use [facility] Prescriptions: - albuterol sulfate 90 mcg/actuation Inhalation HFA aerosol inhaler - inhale 2 puff by INHALATION route every 6 hours; 1 Pump; Refills: 0, Product taty Selection Permitted - Prednisone 20 mg Oral Tablet - take 1 tablet by ORAL route once daily for 7 days; 7 tablet; Refills: 0, [facility] Product Selection Permitted - Albuterol Sulfate 2.5 mg /3 mL (0.083 %) Inhalation Solution for Nebulization - inhale 1 unit by NEBULIZATION route every 8 hours As needed; 1 box; Refills: 0, [facility] Product Selection Permitted - Zithromax Z-Juliocesar 250 mg Oral Tablet - take 1 tablet by ORAL route as directed for 5 days Day 1 - take two (2) tablets taty one time. Day 2, 3, 4 , 5 take one (1) tablet once daily.; 6 tablet; Refills: 0, Product Selection Permitted - Guaifenesin AC 10-100 mg/5 mL Oral Liquid - take 10 milliliters by ORAL route every 6 hours As needed; 160 milliliter; [facility] Refills: 0, Product Selection Permitted Signatures: Dispatcher [employer] EDMS Caio Aceves MD MD cha Marinas, Patrick MD PEDIATRIC ALLERGIST MD PEDIATRIC ALLERGIST pm1 Felice Suggs al4 Rufina Davis, RN RN hamida Corrections: (The following items were deleted from the chart) 02:52 02:43 Allergies: Hydrocodone-Acetaminophen; [facility] 02:52 02:43 Allergies: Hydrocortone; [facility] 02:52 02:43 PMHx: CHF; [facility] 02:52 02:43 PMHx: Atrial Fib; [facility] 02:52 02:43 PMHx: mitral valve prolapse; [facility] 02:52 02:43 PMHx: Asthma; [facility] 02:52 02:43 PMHx: Bronchitis; [facility] 02:52 02:43 PMHx: Bipolar disorder; [facility] 02:52 02:43 PMHx: Anxiety; [facility] 02: 02:43 PSHx: hysterectomy; [facility] 02:52 02:43 PSHx: Cholecystectomy; mk mk 02:52 02:43 PSHx: right hand; mk mk 02:52 02:43 PSHx: left shoulder; mk mk
--- NOTE | 2021-11-07 05:24 | ER ---
Nurse's Notes [facility] Name: Jenni Draper Age: 41 yrs Sex: Female : 1980 Arrival Date: 11/07/2021 Time: 01:57 Bed 6 Private MD: Diagnosis: Bronchitis, not specified as acute or chronic;Cough Presentation: 11/07 02:42 Chief complaint: Patient states: Reports cough/SOB x2 days, clear lung sounds on mk auscultation, VS stable at time of triage Hx Afib, mitral valve regurgitation, HTN, seizures, pacemaker. Coronavirus screen: Vaccine status:. Ebola Screen: Patient negative for fever greater than or equal to 101.5 degrees Fahrenheit, and additional compatible Ebola Virus Disease symptoms. Initial Sepsis Screen: Does the patient meet any 2 criteria? No. Patient's initial sepsis screen is negative. Does the patient have a suspected source of infection? No. Patient's initial sepsis screen is negative. Risk Assessment: Do you want to hurt yourself or someone else? Patient reports no desire to harm self or others. Onset of symptoms was November 04, 2021. 02:42 Method Of Arrival: Ambulatory 02:42 Acuity: LYUBOV 3 Triage Assessment: 02:40 General: Behavior is cooperative. Respiratory: Airway is patent Trachea midline Respiratory effort is even, unlabored, Breath sounds are clear Onset: The symptoms/episode began/occurred 2 days. 07:08 General: Appears. 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 - Irregular menses Historical: - Allergies: 02:43 Adhesives; mk 02:43 Aspirin; mk 02:43 FISH PRODUCT DERIVATIVES; mk 02:43 Bactrim; mk 02:43 Benadryl; mk 02:43 Diltiazem; mk 02:43 Cipro IV; mk 02:43 Clindamycin; mk 02:43 coconut oil; mk 02:43 Detrol; mk 02:43 Doxycycline; mk 02:43 GABAPENTIN; mk 02:43 Morphine; mk 02:43 Hydrocodone-Acetaminophen; mk 02:43 Iodine; mk 02:43 ivabradine; mk 02:43 Latex, Natural Rubber; mk 02:43 PENICILLINS; - Home Meds: 02:43 albuterol sulfate 2.5 mg /3 mL (0.083 %) Inhl nebu 3 mL 3 times per day [Active]; mk apixaban 5 mg oral tab 1 tab 2 times per day [Active]; azithromycin 250 mg Oral tab 1 tab once daily [Active]; benzonatate 100 mg oral cap 1 cap 3 times per day [Active]; carvedilol 25 mg oral tab 1 tab 2 times per day [Active]; Crestor 5 mg oral tab 1 tab once daily [Active]; digoxin 125 mcg (0.125 mg) Oral tab 1 tab once daily [Active]; Lasix 20 mg Oral tab 1 tab [Active]; Keppra 750 mg Oral tab 1 tab [Active]; loratadine 10 mg oral tab 1 tab once daily [Active]; pregabalin 50 mg Oral cap 1 cap 3 times per day [Active]; Nexium 20 mg Oral cpDR 1 cap once daily [Active]; nitroglycerin 0.4 mg Oral [Active]; Ubrelvy 100 mg oral tab 1 tab [Active]; venlafaxine 150 mg oral cp24 1 cap once daily [Active]; Vraylar 3 mg oral cap 1 cap once daily [Active]; Xanax 0.25 mg Oral tab 1 tab [Active]; - Immunization history:: Adult Immunizations up to date. - Social history:: Smoking status: Patient reports the use of cigarette tobacco products. Screenin:00 Abuse screen: Denies threats or abuse. Nutritional screening: No deficits noted. mk Tuberculosis screening: No symptoms or risk factors identified. Fall Risk No secondary diagnosis (0 pts). IV access (20 points). Ambulatory Aid- None/Bed Rest/Nurse Assist (0 pts). Gait- Normal/Bed Rest/Wheelchair (0 pts) Mental Status- Oriented to own ability (0 pts). Total Jolly Fall Scale indicates No Risk (0-24 pts). Assessment: 02:40 Pain: Denies pain. Neuro: Level of Consciousness is awake, alert, obeys commands, mk Oriented to person, place, time, situation, Gait is steady, Speech is normal, Facial symmetry appears normal. Cardiovascular: Heart tones S1 S2 present Capillary refill < 3 seconds in bilateral fingers toes Clubbing of nail beds is absent JVD is absent Patient's skin is warm and dry. Pulses are 3+ in right radial artery, right dorsalis pedis artery, left radial artery and left dorsalis pedis artery Rhythm is sinus rhythm. Respiratory: Airway is patent Trachea midline Respiratory effort is even, unlabored, Respiratory pattern is regular, symmetrical, Breath sounds are clear. Respiratory: Reports cough that is non-productive, since 2 DAYS the patient has mild shortness of breath. GI: Bowel sounds present X 4 quads. Abd is soft and non tender X 4 quads. : No signs and/or symptoms were reported regarding the genitourinary system. Derm: Skin is intact, is healthy with good turgor, Skin is dry, Skin is pink, warm \T\ dry. Skin temperature is warm. Musculoskeletal: Circulation, motion, and sensation intact. Capillary refill < 3 seconds, Range of motion: intact in all extremities. 03:40 Reassessment: Patient and/or family updated on plan of care and expected duration. Pain mk level reassessed. Patient is alert, oriented x 3, equal unlabored respirations, skin warm/dry/pink. 04:39 Reassessment: Patient and/or family updated on plan of care and expected duration. Pain mk level reassessed. Patient is alert, oriented x 3, equal unlabored respirations, skin warm/dry/pink. Vital Signs: 02:32 BP 136 / 95; Pulse 105; Resp 22; Temp 98.0(O); Pulse Ox 100% ; lt3 02:42 BP 127 / 103; Pulse 97; Resp 18; Pulse Ox 99% on R/A; mk 03:30 BP 102 / 86; Pulse 97; Resp 18; Pulse Ox 98% on R/A; mk 04:35 BP 109 / 78; Pulse 94; Resp 21; Pulse Ox 98% ; mk [place] Coma Score: 03:30 Eye Response: spontaneous(4). Verbal Response: oriented(5). Motor Response: obeys mk commands(6). Total: 15. 04:35 Eye Response: spontaneous(4). Verbal Response: oriented(5). Motor Response: obeys mk commands(6). Total: 15. ED Course: 01:57 Patient arrived in ED. wm 02:40 Arm band placed on. EKG completed in triage. Results shown to MD. mk 02:40 Placed in gown. Bed in low position. Call light in reach. Side rails up X 1. mk 02:43 Triage completed. mk 03:13 Caio Aceves MD is Attending Physician. taty 03:21 Rufina Davis, RN is Primary Nurse. mk 03:46 XRAY Chest (1 view) In Process Unspecified. EDMS 03:57 Inserted saline lock: 22 gauge in right forearm, using aseptic technique. Blood ds4 collected. 04:38 Troponin HS Sent. mk 04:38 NT PRO-BNP Sent. mk 04:38 Magnesium Sent. mk 04:38 Basic Metabolic Panel Sent. mk 05:24 David Castaneda MD is Referral Physician. [facility] 06:00 No provider procedures requiring assistance completed. IV discontinued. mk Administered Medications: 04:42 Drug: Xopenex (levalbuterol) 3.75 mg Route: Inhalation; al4 05:29 Follow up: Response: No adverse reaction al4 04:42 Drug: AtroVENT (ipratropium) Aerosol 0.5 mg Route: Inhalation; al4 05:29 Follow up: Response: No adverse reaction al4 04:42 Drug: Pepcid (famotidine) 20 mg Route: IVP; Site: right forearm; al4 05:29 Follow up: Response: No adverse reaction al4 04:42 Drug: SOLU-Medrol (methylPrednisoLONE) 125 mg Route: IVP; Site: right forearm; al4 05:29 Follow up: Response: No adverse reaction al4 04:42 Drug: predniSONE 20 mg Route: PO; al4 05:29 Follow up: Response: No adverse reaction al4 06:03 Drug: Tussionex Pennkinetic ER (chlorpheniramine-hydrocodone) Suspension 5 ml {Note: al4 patient states she does not have an allergy to hydrocodone and physician clarified with patient as well .} Route: PO; 06:34 Follow up: Response: No adverse reaction mk Outcome: 05:24 Discharge ordered by . taty 06:20 Discharged to home 06:20 Condition: stable 06:20 Discharge instructions given to patient. 06:25 Patient left the ED. Signatures: Dispatcher [employer] EDMS Caio Aceves MD MD cha Swanson, Donovan ds4 Usha Miller Alexis al4 Davila, Sarah lt3 Rufina Davis, RN RN hamida Corrections: (The following items were deleted from the chart) 02:52 02:43 Allergies: Hydrocodone-Acetaminophen; [facility] 02:52 02:43 Allergies: Hydrocortone; [facility] 02:52 02:43 PMHx: CHF; [facility] 02:52 02:43 PMHx: Atrial Fib; [facility] 02:52 02:43 PMHx: mitral valve prolapse; [facility] 02:52 02:43 PMHx: Asthma; [facility] 02:52 02:43 PMHx: Bronchitis; [facility] 02:52 02:43 PMHx: Bipolar disorder; [facility] 02:52 02:43 PMHx: Anxiety; [facility] 02:52 02:43 PSHx: hysterectomy; [facility] 02:52 02:43 PSHx: Cholecystectomy; [facility] 02:52 02:43 PSHx: right hand; [facility] 02:52 02:43 PSHx: left shoulder; [facility] 06:04 06:03 Tussionex Pennkinetic ER (chlorpheniramine-hydrocodone) Suspension 5 ml PO al4 al4
[2021-11-07] MEDS ORDERED: HYDROCODONE/CHLORPHEN 5 ML/OSYR ONE (06:04)
[2021-11-07 06:37] VITALS: TEMP 98
[2021-11-07 06:38] VITALS: O2SAT 98
[2021-11-07 06:39] VITALS: BP 109/78
--- NOTE | 2021-11-07 08:17 | RAD REPORT ---
EXAM DESCRIPTION: RAD - Chest Single View - 11/07/2021 3:46 am CLINICAL HISTORY: SOB COMPARISON: Portable 10/09/2021 TECHNIQUE: AP portable chest image was obtained 11/07/2021 3:46 am . FINDINGS: Lung volumes are low. No peripheral mass or consolidation. Heart size and vasculature with in normal limits. Right-sided pacemaker in place. Heart and vasculature are normal. No measurable ple ural effusion and no pneumothorax. No acute bony abnormality seen. No acute aortic findings suspected . IMPRESSION: No acute cardiopulmonary process. No significant change from comparison study.
== END 2021-11-07 06:25 | disposition home or self-care (01) ==
LOC: ER 01:53
DX: J40 Bronchitis, not specified as acute or chronic (principal); Z20.822 Contact with and (suspected) exposure to COVID-19; Z72.0 Tobacco use; Z88.0 Allergy status to penicillin; Z88.1 Allergy status to other antibiotic agents; Z88.5 Allergy status to narcotic agent; Z88.6 Allergy status to analgesic agent; Z88.8 Allergy status to other drugs, medicaments and biological substances; Z91.013 Allergy to seafood; Z91.018 Allergy to other foods; Z91.040 Latex allergy status
CPT/HCPCS: 93005; 85025; 80048; 36415; 83735; 85610; 80162; 80076; 84484; 83880; 0241U; 71045; 96375; 96374; 99285; J7512; J2930

== ENCOUNTER 2021-11-10 11:38 | Emergency (ER) | payer OTHER ==
--- OUTSIDE RECORDS SUMMARY | 2021-11-10 11:46 | XMS REPORT | Continuity of Care Document ---
:1980 Author Organization [facility] t Address [address] [place] [address] Care Team Providers Name Role Phone MIMA VELAZQUEZ Primary Care Physician Unavailable ZAKIA VERA Attending Clinician Unavailable Shauna Boone Attending Clinician Unavailable AMOS Attending Clinician Unavailable [...] Expiration Source Date Date GENERIC MEDICAID HMO [id number] 2011 00:00:00 [facility] [id number] 2011 MEDICAID 00:00:00 [facility] [id number] 2011 Met panda STAR+PLUS [facility] PresentO [place] [id number] [address] [facility] MEDICAIDMEDICAID 00:00:00 - Medica l [id number]/09/[address] 018-Present Problems Condition Condition Condition Status Onset Resolution Last Treating Co mments Source Name Details Category Date Date Treatment Clinician Date Elevated Elevated Disease Active Unive rs d-dimer d-dimer 7- ity of 00:00: [address] Left-sided Left-sided Disease Active C HI [...] [facility] - stroke stroke 00:00: Medical 00 [place] Chest pain Chest pain Disease Active U [...] toxicity toxicity 2-04 ity of 00:00: [place] [facility] Atrial Atrial Disease Active Univers fibrillati fibrillati 2-04 it y of on on 00:00: [place] 00 [facility] Dyspnea Dyspnea Disease Active 2019 Univers 2-01 ity of 00:00: [place] 00 Medical Branch Seizure Seizure Disease Active 2018-09 Univers disorder disorder 2-01 ity of 00:00: [place] 00 [facility] Mitral Mitral Disease Active 2019 Univers valve valve 8-05 ity of regurgitat regurgitat [place] 00 [place] Excessive Excessive Disease Active Uni vers anticoagul anticoagul 8-05 it y of ation ation 00:00: [place] 00 [facility] Deep vein Deep vein Disease Active 2019 Uni vers thrombosis thrombosis 8-05 it y of of lower of lower 00:00: [place] extremity extremity 00 [facility] Anxiety Anxiety Disease Active 2019 Univers disorder disorder 8-05 ity of 00:00: [place] 00 [facility] Asthma Asthma Disease Active 2019- [...] arm and 00:00: Medical leg leg 00 [place] Dysphagia Dysphagia Disease Active 2017-09 Uni vers [...] Added automatic ally from request for surgery [id number] Abdominal Abdominal Disease Active 2017-09 Overview: Univers pain, pain, 0-19 Formattin ity of unspecifie unspecifie 00:00: g of this [place] d d 00 note Medical abdominal abdominal might be Br anch location location different from the original. Added automatic ally from request for surgery [id number] Nausea and Nausea and Disease Active 2017-09 Overview : Univers vomiting, vomiting, 0-19 Formattin i ty of intractabi intractabi 00:00: g of this [place] lity of lity of 00 note Medical vomiting vomiting might be Bran ch not not different specified, specified, from the unspecifie unspecifie original. d vomiting d vomiting Added type type automatic ally from request for surgery [id number] Non-cardia Non-cardia Disease Active U jayden c chest c chest 8- ity of pain pain 00:00: [place] [facility] Essential Essential Disease Active Uni vers hypertensi hypertensi 8- it y of on on 00:00: Medical Branch Pacemaker Pacemaker Disease Active Uni vers 8-03 ity of 00:00: [place] [facility] PAF PAF Disease Active Univers [...] different from the original. ICD10 Diagnosis Term [employer]illing [employer] Utility Hypoglycem Hypoglycem Disease Active 2012-09 Overview : Univers ia ia 10-21 Formattin ity of 00:00: g of this note Medical might be Branch different from the original. ICD10 Diagnosis Term [employer] Utility Cerebrovas Cerebrovas Disease Resolve 2021-02-12 2021-02-12 [...] [place] mide 00:00: d Antibiot 00 [facility] Fish FA Active SV [facility] [...] [facility] prim -04 [place] 00:00: d 00 [facility] ciproflo DA Active SV 2020-0 [facility] xacin - [place] 00:00: d 00 Medical Center adhesive DA Active SV 2020-0 [facility] tape - [place] 00:00: d 00 [facility] tramadol DA Active SV 2020-0 [facility] -04 [place] 00:00: d 00 [facility] gabapent DA Active SV 2020-0 [facility] in - [place] 00:00: d 00 Medical Center diltiaze DA Active SV 2020-0 [facility] m - [place] 00:00: d 00 [facility] diphenhy DA Active SV 2020-0 [facility] dramine - [place] 00:00: d 00 Medical Center topirama DA Active SV 2020-0 [facility] te - [place] 00:00: d 00 [facility] levoflox DA Active SV [...] [place] mide 00:00: d Antibiot 00 Medical [facility] Fish FA Active SV ANAPHYLAXIS 2020- [facility] Containi SHOCK 1-04 [place] ng 00:00: d Products 00 Medical Center iodine DA Active MO RASH 2020-0 [facility] 1-04 [place] 00:00: d 00 Medical Center morphine DA Active SV ANAPHYLAXIS 2020-0 [facility] SHOCK -04 [place] 00:00: d 00 Medical Center aspirin DA Active SV ANAPHYLAXIS 2020-0 [facility] SHOCK -04 [place] 00:00: d 00 [facility] cephalex DA Active SV HIVES 2020-0 [facility] in 1-04 [place] 00:00: d 00 [facility] cefixime DA Active MO HIVES 2020-0 [facility] 1-04 [place] 00:00: d 00 [facility] doxycycl DA Active SV RASH 2020-0 [facility] ine 1-04 [place] 00:00: d 00 [facility] clindamy DA Active MO RASH 2020-0 [facility] stephan 1-04 [place] 00:00: d 00 [facility] sulfamet DA Active MO RASH 2020-0 [facility] hoxazole 1-04 [place] 00:00: d 00 [facility] trimetho DA Active MO RASH 2020-0 [facility] prim 1-04 [place] 00:00: d 00 [facility] ciproflo DA Active SV HIVES 2020-0 [facility] xacin 1-04 [place] 00:00: d 00 [facility] adhesive DA Active SV BLISTERS 2020-0 [facility] tape 1-04 [place] 00:00: d 00 [facility] tramadol DA Active SV HIVES 2020-0 [facility] 1-04 [place] 00:00: d 00 [facility] gabapent DA Active SV RASH 2020-0 [facility] in 1-04 [place] 00:00: d 00 Medical Center diltiaze DA Active SV SHORTNESS OF 2020-0 HC A m BREATH -04 [place] 00:00: d 00 Medical Center diphenhy DA Active SV RASH 2020-0 [facility] dramine 1-04 [place] 00:00: d 00 Medical Center topirama DA Active SV HIVES/MEMORY 2020-0 HC A te LOSS - [place] 00:00: d 00 [facility] levoflox DA Active SV HIVES 2020-0 [facility] acin - [place] 00:00: d 00 Medical Center quetiapi DA Active MO RASH 2020-0 [facility] ne -04 [place] 00:00: d 00 Medical Center tolterod DA Active MO RASH [facility] ine 1-04 [place] 00:00: d 00 [facility] latex DA Active SV BLISTERS [facility] 1-04 [place] 00:00: d 00 [facility] ivabradi DA Active MO RASH [facility] ne 1-04 [place] 00:00: d 00 [facility] coconut FA Active MO RASH [facility] 1-04 [place] 00:00: d 00 [facility] Topirama Propensi Active Anaphylaxis 2019-0 M [...] 00 allergic Medi blane s reaction. Branch FISH Drug Active High [...] 00 PENICILL Allergy Active High Anaphylaxis 2017-09 [facility] INS 10-17 00:00: 00 DIPHENHY Allergy Active [...] - Hcl adverse 00:00: Medical reaction 00 [place] s Ciproflo Propensi Active 2017-[address] xacin ty to 10-17 aches. [facility]ukes - adverse 00:00: Medical reaction 00 [place] s Clindamy Propensi Active Rash 2017-[address] stephan ty to 10-17 [facility] - adverse 00:00: Medical reaction 00 [place] s Tolterod Propensi Active Rash 2017-[address] ine ty to 10-17 [facility] - adverse 00:00: Medical reaction 00 [place] [facility] Gabapent Propensi Active Shortness Of 2017-[address] in ty to Breath, Rash 10-17 Luke s - adverse 00:00: Medical reaction 00 [place] s Iodine Propensi Active Rash 2017-[address] And ty to 10-17 [facility] - Iodide adverse 00:00: Medical Containi reaction 00 [facility] s Products Latex Propensi Active Rash 2017-[address] ty to 10-17 [facility] - adverse 00:00: Medical reaction 00 [place] s Morphine Propensi Active Anaphylaxis 2017-[address] ty to 10-17 [facility] - adverse 00:00: Medical reaction 00 [place] [facility] Penicill Propensi Active Anaphylaxis 2017-[address] ty to 10-17 [facility] - adverse 00:00: Medical reaction 00 [place] s Quetiapi Propensi Active 2017-[address] ne ty to 10-17 [facility] - adverse 00:00: Medical reaction 00 [place] s Sulfa Propensi Active Rash 2017-[address] (Sulfona ty to 10-17 [facility] - mide adverse 00:00: Medical Antibiot reaction 00 [facility]) s Cefixime Propensi Active Rash 2017-[address] ty to 10-17 [facility] - adverse 00:00: Medical reaction 00 [place] s Tramadol Propensi Active Rash 2017-[address] ty to 10-17 [facility] - adverse 00:00: Medical reaction 00 [place] s QUETIAPI Allergy Active 2017-09 [facility] NE [...] Clindamy Propensi Active Rash 2018-0 Method i stephan ty to 01-04 st [...] Stop Date Quantity Comments Source History SDOH Mandaen Alcohol Std Drinks Hospit al History SDOH Manda[facility] Alcohol B[facility] Hospital Exposure to Not sure University of SARS-CoV-2 (event) [place] [facility] Alcohol intake 2021-10-22 2021-10-22 [facility] of 00:00:00 00:00:00 non-drinker of [facility] Branch (finding) Education 2021-03-25 2021-03-[address] [place] [address] of 00:00:00 00:00:00 [place] [facility] History SDNH 2019-10-29 2019-10-29 5 University o f Financial 00:00:00 00:00:00 [place] [facility] History [facility] Food 2019-10-29 2019-10-29 1 Univers ity of Worry 00:00:00 00:00:00 [place] [facility] History [facility] Food 2019-10-29 2019-10-29 1 Univers ity of Scarcity 00:00:00 00:00:00 [place] [facility] History [facility] 2019-10-29 2019-10-29 2 University o f Transport Med 00:00:00 00:00:00 [place] [facility] History [facility] 2019-10-29 2019-10-29 2 University o f Transport Non-Med 00:00:00 00:00:00 [place] M ed[facility] History [facility] 2018-09-05 2018-09-05 1 Mandaen Alcohol Frequency 00:00:00 00:00:00 [facility] Cigarettes smoked 2018-04-27 2018-04-27 Univers ity of current (pack per 00:00:00 00:00:00 [facility] [place] ) - Reported Branch Cigarette 2018-04-27 2018-04-27 University of pack-years 00:00:00 00:00:00 [place] [facility] Tobacco use and 2018-04-27 2018-04-27 Never used Universit y of exposure 00:00:00 00:00:00 [place] [facility] Tobacco Comment 2018-04-27 2018-04-27 quit 16 years Univer sity of 00:00:00 00:00:00 ago [facility] History of tobacco 2003-05-09 Smoker Univer sity of use 00:00:00 [facility] Sex [birth year] At [birth year] Universit y of 00:00:00 00:00:00 [place] [facility] Smoking Status Start Date Stop Date Source Former smoker 2018-04-27 00:00:00 2018-04-27 00:00:00 Universi ty of [place] [facility] Medications Ordered Filled Start Stop Current Ordering Indication Dosage Frequency Signature Comments Components Source Medication Medication Date Date Medication? Clinician (SIG) Name Name ALPRAZolam Yes [id number] .25mg Take 0.25 Univers (XANAX) 2-11 mg by ity of 0.25 mg 11:24: mouth at [place] tablet 16 bedtime as Medical needed. Branch pregabalin 0 Yes 50mg Take 50 mg U nivers (LYRICA) 50 2-11 by mouth ity of mg capsule 11:24: at [place] 16 bedtime. Medical Branch esomeprazol 0 Yes 20mg Take 20 mg Univers e (NEXIUM) 2-11 by mouth 2 ity of 20 mg 11:24: (two) [place] capsule 16 times Medical daily Branch before breakfast and dinner. ALPRAZolam Yes [id number] .25mg Take 0.25 Univers (XANAX) 2-11 mg by ity of 0.25 mg 11:24: mouth at [place] tablet 16 bedtime as Medical needed. Branch pregabalin Yes 50mg Take 50 mg U nivers (LYRICA) 50 2-11 by mouth ity of mg capsule 11:24: at [place] 16 bedtime. Medical Branch esomeprazol Yes 20mg Take 20 mg Univers e (NEXIUM) 2-11 by mouth 2 ity of 20 mg 11:24: (two) [place] capsule 16 times Medical daily Branch before breakfast and dinner. azithromyci Yes [id number] 250mg Take 1 Univers n 250 mg 2-08 tablet by ity of tablet 00:00: mouth [place] 00 daily. Medical Branch azithromyci 0 Yes [id number] 250mg Take 1 Univers n 250 mg 2-08 tablet by ity of tablet 00:00: mouth [place] 00 daily. Medical Branch chlorphenir 0 Yes [id number] 4mg Take 1 Univers amine 4 mg 1-05 tablet by ity of tablet 00:00: mouth [place] 00 every 6 Medical (six) Branch hours as needed for Allergies or Runny nose. calcium/mag 0 Yes [id number] 1{each} Take 1 Univers nesium/zinc 1-05 Each by ity o f (CALCIUM-MA 00:00: mouth [place] GNESUIUM-ZI 00 daily. Medica l NC) Branch 333-133-5 mg Tab benzonatate 0 Yes [id number] 100mg Take 1 Univers 100 mg 1-05 capsule by ity of capsule 00:00: mouth 3 [place] 00 (three) Medical times Branch daily as needed for Cough. chlorphenir Yes [id number] 4mg Take 1 Univers amine 4 mg 1-05 tablet by ity of tablet 00:00: mouth [place] 00 every 6 Medical (six) Branch hours as needed for Allergies or Runny nose. calcium/mag Yes [id number] 1{each} Take 1 Univers nesium/zinc 1-05 Each by ity o f (CALCIUM-MA 00:00: mouth [place] GNESUIUM-ZI 00 daily. Medica l MS) Branch 333-133-5 mg Tab benzonatate Yes [id number] 100mg Take 1 Univers 100 mg 1-05 capsule by ity of capsule 00:00: mouth 3 [place] 00 (three) Medical times Branch daily as needed for Cough. levETIRAcet 2020-09- Yes [id number] 750mg Take 1 Univers am (KEPPRA) 2-06 26-14 tablet by it y of 750 mg 00:00: 05:59 mouth at [place] tablet 00 :00 bedtime Medical for 65 Branch days. levETIRAcet 2020-09- Yes [id number] 750mg Take 1 Univers am (KEPPRA) 2-10 [...] 00 daily. Medical Branch albuterol 2020-09 Yes [id number] 1.25mg Inhale 1.5 Univers 2.5 mg /3 1-11 mL every 4 ity of mL (0.083 00:00: (four) [place] %) 00 hours. Medical nebulizer Branch solution albuterol 2020-09 Yes [id number] 1.25mg Inhale 1.5 Univers 2.5 mg /3 1-11 mL every 4 ity of mL (0.083 00:00: (four) [place] %) 00 hours. Medical nebulizer Branch solution albuterol 2020-09 Yes [id number] 2{puff} Inhale 2 Univers 90 1-05 Puffs ity of mcg/actuati 00:00: every 6 [place] as on inhaler 00 (six) Medical hours as Branch needed for Wheezing or Shortness of Breath. albuterol 2020-09 Yes [id number] 2{puff} Inhale 2 Univers 90 1-05 Puffs [...] Branch daily with meals. ubrogepant 2020-09 Yes [id number] 100mg Take 100 Univers (UBRELVY) 0-19 mg by ity of 100 mg Tab 00:00: mouth as [place] 00 needed Medical (migraine) Branch . Take at onset of migraine, repeat x1 in 2h if headache remains ubrogepant 2020-09 Yes [id number] 100mg Take 100 Univers (UBRELVY) 0-19 mg by ity of 100 mg Tab 00:00: mouth as [place] 00 needed Medical (migraine) Branch . Take at onset of migraine, repeat x1 in 2h if headache remains nitroglycer 2020-[id number] 1 Univers in 0.4 mg 0-10 tablet ity of sublingual 00:00: under the [place] tablet 00 tongue Medical every 5 Branch (five) minutes as needed for Chest pain. nitroglycer 2020-[id number] 1 Univers in 0.4 mg 0-10 tablet ity of sublingual 00:00: [place] the [place] tablet 00 tongue Medical every 5 Branch (five) minutes as needed for Chest pain. VRAYLAR 3 Yes 1{capsu Take 1 Uni vers mg Cap 8-25 le} capsule by ity of 00:00: mouth at [place] 00 bedtime. Medical Branch VRAYLAR 3 Yes 1{capsu Take 1 Uni vers mg Cap 8-25 le} capsule by ity of 00:00: mouth at [place] 00 bedtime. Medical Branch albuterol Yes [id number] 2.5mg Inhale 3 Univers 2.5 mg /3 8-05 mL every 6 ity of mL (0.083 00:00: (six) [place] %) 00 hours as Medical nebulizer needed for Bran ch solution Wheezing or Shortness of Breath. albuterol Yes [id number] 2.5mg Inhale 3 Univers 2.5 mg /3 [...] 22:52: nightly. Hos elenita 44 l cariprazine Yes 1.5mg QD Take 1.5 M ethodi [...] day. l ophthalmic emulsion albuterol Yes 1{ampul Q.[id number] Take 1 Methodi (ACCUNEB) 6-24 e} [id number] ampule by st 1.25 mg/3 22:52: 3D nebulizati Ho spita mL 44 on 3 l nebulizer (three) solution times a day. esomeprazol No 20mg QD Take 20 mg [...] for up to 3 days. tiotropium Yes [id number] 1{puff} Inhale 1 Univers bromide 6-02 Puff ity of (SPIRIVA 00:00: daily. [place] RESPIMAT) 00 Medical 2.5 Branch mcg/actuati on Mist fluticasone Yes [id number] 1{puff} Inhale 1 Univers furoate-natan 6-02 Puff ity of anteroL 00:00: daily. [place] (BREO 00 Medical ELLIPTA) Branch 200-25 mcg/dose DsDv tiotropium Yes [id number] 1{puff} Inhale 1 Univers bromide 6-02 Puff ity of (SPIRIVA 00:00: daily. [place] RESPIMAT) 00 Medical 2.5 Branch mcg/actuati on Mist fluticasone Yes [id number] 1{puff} Inhale 1 Univers furoate-natan 6-02 Puff ity of anteroL 00:00: daily. [place] (BREO 00 Medical ELLIPTA) Branch 200-25 mcg/dose [...] s - MG capsule 14:04: nightly . Wy dical 46 Center esomeprazol Yes 40mg QD [...] Cap 14:04: mouth Medica l 46 nightly. [place] albuterol 2021- No 1{ampul Q.5D Take 1 [...] 48 :00 Center ing tablet benzonatate Yes [id number] 100mg Take 1 Univers (TESSALON 2-11 capsule by Ann) 100 00:00: mouth 3 [place] as mg capsule 00 (three) Medica l times Branch daily as needed for Cough. benzonatate Yes [id number] 100mg Take 1 Univers (TESSALON 2-11 capsule by Ann) 100 00:00: mouth 3 [place] mg capsule 00 (three) Medica l times Branch daily as needed for Cough. levETIRAcet Yes [id number] 1000mg Take 2 Univers am 500 mg 7-29 tablets by ity of tablet 00:00: mouth 2 [place] 00 (two) Medical times Branch daily. levETIRAcet Yes [id number] 1000mg Take 2 Univers am 500 mg 7-29 tablets by ity of tablet 00:00: mouth 2 [place] 00 (two) Medical times Branch daily. blood sugar 2017-09 Yes [id number] Use as Univers diagnostic 0-24 directed. ity of (TRUETEST 00:00: R 73.03. [place] TEST 00 Check once Medical STRIPS) daily Branch strip lancets 2017-09 Yes [id number] Use as Uni vers (TRUEPLUS 0-24 directed. ity o f LANCETS) 33 00:00: R 73.03, [place] gauge Misc 00 Check once Med ical daily Branch blood sugar 2017-09 Yes [id number] Use as Univers diagnostic 0-24 directed. ity of (TRUETEST 00:00: R 73.03. [place] TEST 00 Check once Medical STRIPS) daily Branch strip lancets 2017- Yes [id number] Use as Uni vers (TRUEPLUS 0-24 directed. [...] of 10 mg 00:00: [place] tablet 00 [facility] Branch Immunizations Ordered Filled Immunization Date Status Comments [facility] e Immunization Name Name SARS-COV-2 COVID-19 2021-02-08 Completed Unive rsity of MODERNA VACCINE 00:00:00 [facility] SARS-COV-2 COVID-19 2021-02-08 Completed Unive rsity of MODERNA VACCINE 00:00:00 [facility] SARS-COV-2 COVID-19 2021-01-11 Completed Unive rsity of MODERNA VACCINE 00:00:00 [facility] SARS-COV-2 COVID-19 2021-01-11 Completed Unive rsity of MODERNA VACCINE 00:00:00 [facility] Influenza Virus 2020-08-13 Completed Universit y of Vaccine 00:00:00 [facility] Influenza Virus 2020-08-13 Completed Universit y of Vaccine 00:00:00 [place] [facility] Pneumococcal 2017-06-23 Completed University o f Polysaccharide, 00:00:00 [facility] PPSV23 (PNEUMOVAX) [place] Pneumococcal 2017-06-23 Completed University o f Polysaccharide, 00:00:00 [facility] ical PPSV23 (PNEUMOVAX) Branch Influenza High Dose 2015-11-16 Completed Unive rsity of 00:00:00 [place] [facility] Pneumococcal 2015-11-16 Completed University o f Polysaccharide, 00:00:00 [place] Med ical PPSV23 (PNEUMOVAX) Branch Influenza High Dose 2015-11-16 Completed Unive rsity of 00:00:00 [place] [facility] Pneumococcal 2015-11-16 Completed [place] o f Polysaccharide, 00:00:00 [place] Med ical PPSV23 (PNEUMOVAX) Branch Vital Signs Vital Name Observation Time Observation Value Comments Source HEIGHT 2021-02-10 21:00:00 149.9 cm WEIGHT 2021-02-10 21:00:00 59.467 kg Systolic blood 2021-11-05 17:20:00 124 mm[Hg] Univer sity of pressure [facility] Diastolic blood 2021-11-05 17:20:00 87 mm[Hg] Unive rsity of pressure [facility] Heart rate 2021-11-05 17:20:00 100 /min [facility] Body height 2021-11-05 17:20:00 149.9 cm [facility] Body weight 2021-11-05 17:20:00 59.478 kg [facility] BMI 2021-11-05 17:20:00 26.48 kg/m2 [facility] Oxygen saturation in 2021-11-05 17:20:00 99 /min [facility] Arterial blood by [facility] Pulse oximetry Branch HEIGHT 2021-02-10 21:00:00 149.9 cm WEIGHT 2021-02-10 21:00:00 59.467 kg Oxygen saturation in 2021-03-18 20:00:00 97 /min [facility] Arterial blood by Pulse oximetry Systolic blood 2021-03-18 17:24:48 132 mm[Hg] Method ist [facility] pressure Diastolic blood 2021-03-18 17:24:48 72 mm[Hg] [facility] pressure Heart rate 2021-03-18 17:24:48 96 /min [facility] Body temperature 2021-03-18 17:24:48 37 [facility] 2021-03-18 17:24:48 14 /min [facility] Body height 2021-03-18 01:37:00 149.9 cm [facility] Body weight 2021-03-18 00:09:00 58.968 kg [facility] BMI 2021-03-18 00:09:00 26.26 kg/m2 [facility] Systolic blood 2021-02-12 12:00:00 101 mm[Hg] [facility] Diastolic blood 2021-02-12 12:00:00 72 mm[Hg] [facility] Heart rate 2021-02-12 12:00:00 93 /min [facility] Respiratory rate 2021-02-12 12:00:00 18 /min [facility] Oxygen saturation in 2021-02-12 12:00:00 96 /min [facility] Arterial blood by Medical Ce nter Pulse oximetry Body temperature 2021-02-12 11:00:00 37.56 Ayaka [facility] Body height 2021-02-11 10:15:00 149.9 cm [facility] Body weight 2021-02-11 10:15:00 59.5 kg [facility] BMI 2021-02-11 10:15:00 26.48 kg/m2 [facility] Procedures Procedure Date / Time Performing Clinician Source Performed POC GLUCOSE 2021-03-18 17:31:00 Cliff Berkowitz Mandaen spital ECG 12-LEAD 2021-03-18 17:28:01 [facility] WO 2021-03-18 14:19:12 [facility] CONTRAST, W DOPPLER ([id number]) POC GLUCOSE 2021-03-18 13:14:00 [facility] HC COMPLETE BLD COUNT 2021-03-18 10:00:00 [facility] W/AUTO DIFF COMPREHENSIVE METABOLIC 2021-03-18 10:00:00 [facility] PANEL MAGNESIUM LEVEL 2021-03-18 10:00:00 Lae, [facility] PHOSPHORUS LEVEL 2021-03-18 10:00:00 Lae, [facility] LIPID PANEL 2021-03-18 10:00:00 Lae, [facility] HEMOGLOBIN A1C 2021-03-18 10:00:00 Laeeq, [facility] ESTIMATED GFR 2021-03-18 10:00:00 Laeeq, [facility] URINE CULTURE 2021-03-18 06:12:00 Laeeq, [facility] LEGIONELLA URINARY 2021-03-18 05:36:00 Laeeq, [facility] ANTIGEN STREPTOCOCCUS PNEUMONIAE 2021-03-18 05:36:00 Lae, [facility] URINARY ANTIGEN URINALYSIS SCREEN AND 2021-03-18 05:36:00 Laeeq, [facility] MICROSCOPY, WITH REFLEX TO CULTURE BLOOD CULTURE, AEROBIC & 2021-03-18 04:35:00 Laeeq, [facility] ANAEROBIC BLOOD CULTURE, AEROBIC & 2021-03-18 04:25:00 Laeeq, [facility] ANAEROBIC DIGOXIN LEVEL 2021-03-18 04:24:00 Lae, [facility] TROPONIN 2021-03-18 04:24:00 [facility] LACTIC ACID LEVEL, SEPSIS 2021-03-18 04:24:00 Lae, [facility] - NOW AND REPEAT 2X EVERY 3 HOURS POC GLUCOSE 2021-03-18 01:38:00 Lae, [facility] ARTERIAL BLOOD GAS 2021-03-18 01:10:00 Laeeq, [facility] US DUPLEX VENOUS LOWER 2021-03-18 01:00:06 Lae, [facility] EXTREMITY BILATERAL LACTIC ACID LEVEL, SEPSIS 2021-03-17 23:47:00 Lae, [facility] - NOW AND REPEAT 2X EVERY 3 HOURS TROPONIN 2021-03-17 23:47:00 [facility], [facility] XR CHEST 1 VW PORTABLE 2021-03-17 21:20:18 AlvarezHector [facility] HC COMPLETE BLD COUNT 2021-03-17 21:05:00 [place] [facility] W/AUTO DIFF LACTIC ACID LEVEL, SEPSIS 2021-03-17 21:05:00 [facility] - NOW AND REPEAT 2X EVERY 3 HOURS COMPREHENSIVE METABOLIC 2021-03-17 21:05[facility]00 [facility] PANEL TROPONIN 2021-03-17 21:05:00 [facility] B NATRIURETIC PEPTIDE 2021-03-17 21:05:00 [facility] Hector Ochoa [facility] D-DIMER 2021-03-17 21:05:00 [facility] ESTIMATED GFR 2021-03-17 21:05:00 [facility] ECG ED PRELIMINARY 2021-03-17 20:36:46 [facility] INTERPRETATION ECG 12-LEAD 2021-03-17 20:19:38 [facility] BASIC METABOLIC PANEL (7) 2021-02-12 05:34:00 Johan Alison [facility] MAGNESIUM 2021-02-12 05:34:00 Johan Alison [facility] PHOSPHORUS 2021-02-12 05:34:00 [place] Alison [facility] CBC W/PLT COUNT & AUTO 2021-02-12 04:48:00 Alison Prado I [facility] MR BRAIN WITHOUT IV 2021-02-11 16:08:00 Naina [facility] MRA HEAD WITHOUT IV 2021-02-11 16:07:00 Naina [facility] MRA NECK WITHOUT IV 2021-02-11 16:07:00 Naina [facility] RAPID DRUG SCREEN, URINE 2021-02-11 03:05:00 [place] [facility] URINALYSIS WITH 2021-02-11 03:05:00 Johan [facility] MICROSCOPIC IF INDICATED [facility] URINALYSIS MICROSCOPIC 2021-02-11 03:05:00 Johan Alison [facility] HOMOCYSTEINE 2021-02-11 02:46:00 [facility] RPR 2021-02-11 02:46:00 [facility] TSH/FREE T4 IF INDICATED 2021-02-11 02:46:00 [facility] VITAMIN B12 AND FOLATE 2021-02-11 02:46:00 [facility] CBC W/PLT COUNT & AUTO 2021-02-11 02:46:00 [facility] BASIC METABOLIC PANEL (7) 2021-02-11 02:46:00 [facility] MAGNESIUM 2021-02-11 02:46:00 [facility] PHOSPHORUS 2021-02-11 02:46:00 [facility] C-REACTIVE PROTEIN 2021-02-11 02:46:00 [facility] DIGOXIN LEVEL 2021-02-11 02:46:00 [facility] XR CHEST 1 VIEW PORTABLE 2021-02-10 22:20:00 [facility] - / BEDSIDE [facility] POCT-GLUCOSE METER 2021-02-10 21:28:00 Wilmer Vera [facility] LIPID PANEL 2021-02-10 21:22:00 [facility] CREATINE KINASE (CK) 2021-02-10 21:21:00 [facility] HEMOGLOBIN A1C 2021-02-10 21:21:00 [facility] CBC W/PLT COUNT & AUTO 2021-02-10 21:21:00 [facility] COMPREHENSIVE METABOLIC 2021-02-10 21:21:[address] [place] [facility] PROTHROMBIN TIME/INR 2021-02-10 21:21:00 Johan [facility] APTT 2021-02-10 21:21:00 [facility] 2021-02-10 21:21:00 Johan [facility] PHOSPHORUS 2021-02-10 21:21:00 Johan [facility] HIGH SENSITIVITY TROPONIN 2021-02-10 21:21:00 [place] [facility] I [facility] B-TYPE NATRIURETIC FACTOR 2021-02-10 21:21:00 [facility] LACTIC ACID, VENOUS 2021-02-10 21:21:00 [place] [facility] ARRYTHMIA IMPLANT REPORT 2021-02-10 00:00:00 Provider, Mino [facility] - - SCAN Scanning [facility] Plan of Care Planned Activity Planned Date Details Comments Source Future Scheduled 2021-05-[address] [facility] - Test 00:00:00 (#1) [code = [facility] INFLUENZA VACCINE (#1)] Future Scheduled 2020-09-[address] [facility] - Test 00:00:00 (12+) [code = [facility] DEPRESSION SCREENING (12+)] Future Scheduled [address] [facility] - Test 00:00:00 malignant neoplasm Medical C enter of cervix (procedure) [code = 989392400] Future Scheduled 2000 DTAP/TDAP/TD [facility] 00:[facility]:00 VACCINES (1 - Tdap) [facility] [code = DTAP/TDAP/TD VACCINES (1 - Tdap)] Future Scheduled [address] [facility] - Test 00:00:00 SCREENING [code = Medical nter HEPATITIS C SCREENING] Future Scheduled Screening [facility] Test malignant neoplasm of cervix (procedure) [code = 978087484] Future Scheduled [facility]INE [facility] [code = INFLUENZA VACCINE] Encounters Start End Encounter Admission Attending Care Care Encounter Source Date/Time Date/Time Type Type Clinicians Facility Department ID 2021-02-10 Inpatient ER BERSHRHONA, [facility] Neurology [id number] [facility] 20:21:00 WILMER 2020-09-29 Inpatient Mely, HCAPM ENDO [id number] [facility] 10:15:00 Linus [id number] [facility] 2020-09-28 Inpatient EL Mely, HCAPM ENDO [id number] [facility] 12:00:00 Linus [id number] [facility] 2021-11-05 2021-11-05 Outpatient R AMOS [facility] [id number] Univers 10:23:45 23:59:00 MARIO [facility] 2021-11-05 2021-11-05 [facility] 1.2.840.114 [id number] Univers 10:23:45 23:59:00 Encounter Mario ONTIVEROS 350.1.13.10 [place] [id number] Wy dicoh NAL 8[facility] 2021-11-05 2021-11-05 [facility] 1.2.840.114 [id number] Univers 11:20:00 11:47:58 Visit Andrews ONTIVEROS 350.1.13.10 [place] [id number] Wy dical NAL 059 [facility] 2021-11-01 2021-11-01 Outpatient R VISHNU VALIENTE [facility] 10 [id number] Univers 09:17:26 23:59:00 VISHNU VALIENTE i ty [facility] 2021-05-12 2021-05-12 Orders Doctor NURYS 1.2.840.114 [id number] 00:00:00 00:00:00 Only Unassigned, PINKY 350.1.13.10 [facility] 4.2.7.2.686 [id number] 2021-04-29 2021-04-29 [facility] 1.2.840.114 [id number] 12:33:16 13:56:43 Visit Vishnu Ontiveros 350.1.13.10 [place] 4.2.7.2.686 Professio [id number] [facility] 085 [facility] 2021-04-28 2021-04-[address] [facility] 1.2.598.535 [id number] 00:00:00 00:00:00 Only [facility] 350.1.13.10 [facility] 4.2.7.2.686 [id number] 2021-03-19 2021-03-19 Patient Omari, 1.2.840.1 [id number] Methodi 00:00:00 00:00:00 Outreach Ann 23173.1.[address] 3.430.2.7 Hospit a .3.124633 l .8 2021-03-17 2021-03-18 Emergency Hector Alvarez 1.2.840.1 [id number] Methodi 14:59:00 17:52:00 Veda Bolanos 98795.1.[address] [facility]anaCliff aponte 3.430.2.7 Hospita .3.795449 l .8 2021-03-17 2021-03-17 Travel 1.2.840.1 1.2.545.506 [id number] Methodi 00:00:00 00:00:[address] 3.430.2.7 0.2.7.3.698 Ho spita .3.503468 084.8 l .8 2017-09-06 2017-09-08 [id number] [facility] 10:12:00 02:32:00 [facility] Results Test Description Test Time Test Comments Results Result Comments Source ECG 12 lead 2021-03-19 14:56:41 Test Item Value Reference Range Interpretation Comme nts Ventricular rate (test code = 253) Atrial rate (test code = 255) MD interval (test code = 266) QRSD interval [...] of 17-MAR-2021 15:19,-No significant change was found- [facility] [id number] 12:41:23 Test Item Value Reference Range Interpretation Comments Urine culture isolate Mixed alok <=10-3 (test code = 23672-5) col/cc [facility] Complete, (w Contrast, Strain and 3D if needed)2021-03-18 23:04:52 Test Item Value Reference Range Interpretation Comments Ao Root Diameter (test code = 2.73 cm 5005863318) AoV Area, Vmax (test code = 2.24 cm2 5814914568) AoV Area, VTI (test code = 2.25 cm2 1908565804) AoV Mean PG (test code = mmHg 8559986992) AoV Peak PG (test code = mmHg 1064966838) AoV Vmax (test code = 5160532907) 1.46 m/s AoV VTI (test code = 3909077603) 0.28 m IVS,d (test code = 6630929642) 0.72 cm IVS/LVPW,2D (test code = 7331498930) Left Atrium Dimension Anterior 2.68 cm (test code = 1216879988) LV,d (test code = 8207979279) 3.69 cm LV EF,2D (test code = 8312215318) 79.68 % LV,s (test code = 8568354056) 2.17 cm LVOT area (test code = 2600684980) 2.75 cm2 LVOT Diam,S (test code = 1.87 cm 5117956001) LVOT Vmax (test code = 4977109099) 1.18 m/s LVOT VTI (test code = 0042089104) 0.23 m LVPWD,d (test code = 8434398038) 0.65 cm PV Pk Grad (test code = 4269150190) mmHg PV VMAX (test code = 5038982234) 0.84 m/s RVOT Vmax (test code = 3127939633) 0.85 m/s RVSP (TR) (test code = 3637940093) mmHg TR Vpeak (test code = 8056554538) 2.86 mm/s MV E A ratio (test code = 8623692931) RA pressure (test code = mmHg 7987505680) TR pk grad (test code = 6631454389) mmHg MR Vmax (test code = 9745598599) 5.49 m/s E wave decelartion time (test code msec = 3503676576) MV Peak A Alf (test code = 0.76 m/s 6884355213) MV valve area p 1/2 method (test 3.26 cm2 code = 7941010916) MV Peak E Alf (test code = 0.92 m/s 6539060762) MV stenosis pressure 1/2 time (test 67.54 ms code = 3255104175) LVOT stroke volume (test code = 0.63 cm3 5832877535) AV LVOT peak gradient (test code = mmHg 9868157009) RVSP (test code = 6525701559) mmHg Ao Root Diameter (test code = 2.73 cm 0667508876) MV mean gradient (test code = mmHg 1783507706) LV SYS VOL (test code = 2698258147) 15.61 ml LV MARTINS VOL (test code = 57.63 ml 4637623960) LA area s A4C (test code = 11.16 cm2 8948898085) LV SV Teich 2D (test code = 42.02 ml 9055879342) LV Vol s Teich PSAX (test code = 15.61 ml 1728184609) MR peak grad (test code = mmHg 7482727830) MV Vmax (test code = 2209379634) 1.21 m MV VTI Tips (test code = 0.24 m 3595264683) RVOT pk grad (test code = mmHg 8477413775) AoV Vmn (test code = 0779004651) LV FS Teich 2D (test code = 9920332455) MV AE ratio (test code = 4248035436) LV FS Cube 2D (test code = 4669380855) LVOT Vmn (test code = 5602885967) Aov area Vmn (test code = 2.13 cm2 3173340577) LVOT mean grad (test code = mmHg 3211183114) MAX Pred HR (test code = 1916355060) 85 of MPHR (test code = 1891750711) Calc MPHR (test code = 2666403207) bpm LV SV Cube 2D (test code = 39.93 ml 5752870492) LV vol d cube 2D (test code = 50.11 ml 7126080681) LV vol s cube 2D (test code = 10.18 ml 4417934655) MV Decel slope (test code = 3.97 m/s2 5817178338) Pred Exer Dur R1 (test code = 8532016313) Pred METS R1 (test code = 2688415615) LA Vol MOD A4C (test code = 24.20 ml 0874553911) Velocity Ratio (V1/V2) (test code = 0.81 m/s 4689) EF (test code = 8815331375) 72.91 % E/A ratio (test code = 8612061729) LVOT VTI (CM) (test code = 23.00 cm 4223410643) SOMMER (test code = SOMMER) [facility] [id number] 17:32:37 Test Item Value Reference Range Interpretation Comments POC glucose (test code = 98913-5) 207 mg/dL 65-99 H Lab Interpretation (test code = Abnormal 28058-4) [facility] duplex venous lower [id number] 01:17:37 EXAMINATION: US DUPLEX VENOUS LOWER EXTREMITY [...] is no evidence of deep venous thrombosis. [facility]-[id number] Interface, Radiology Results - 03/17/2021 8:20 PM [...] There is no evidence of deep venous thrombosis.[facility]-[id number] HospitalXR Chest 1 Vw [id number] 21:32:52EXAMINATION: XR CHEST 1 VW PORTABLE CLINICAL HISTORY: 40 years Female SOB COMPARISON: None. IMPRESSION: Lines, tubes, and devices: Right-sided transvenous cardiac pacemaker. Heart and mediastinum: Cardiomediastinal silhouette is normal. Lungs and pleura: There is no focal airspace disease, pleuraleffusion or pneumothorax. Bones/soft tissues: No acute osseous abnormality. [facility]-[id number] Dictatedand approved by educational institution president/fellow: Cristhian Calixto M.D. I, Jan Scott MD, personally reviewed the images and resident's/fellow's findings and agree with the final report.[facility], [facility] iology Results Incoming - 03/17/2021 4:35 PM CDTFormatting of this note might be different from theoriginal.EXAMINATION: XR CHEST 1 VW PORTABLECLINICAL HISTORY: 40 years Female SOBCOMPARISON: None.IMPRESSION:Lines, tubes, and devices: Right-sided transvenous cardiac pacemaker.Heart and mediastinum: Cardiomediastinal silhouette is normal.Lungs and pleura: There is no focal airspace disease, pleural effusion or pneumothorax.Bones/soft tissues: No acute osseous abnormality.[facility]-[id number] and approved by educational institution president/fellow: Aleksandra Sanchez, Jan Scott MD, personally rev iewed the images and resident's/fellow's findings and agree with the final report.[facility] HospitalARRYTHMIA IMPLANT REPORT - [id number] 20:45:31 Ordered by an unspecified provider.[facility] Preliminary Interpretation - Not an [id number] 20:36:46 Test Item Value Reference Range Interpretation Comments SOMMER (test code = SOMMER) Lab Interpretation (test code = Abnormal 74660-6) [facility] Metabolic [id number] 07:01:00 Test Item Value Reference Range Interpretation Comments Sodium (test code = 137 meq/L 023-697 6621-2) Potassium (test code = 4.3 meq/L 3.5-5.1 2823-3) Chloride (test code = 104 meq/L 98-107 2075-0) CO2 (test code = 24 meq/L 22-29 2028-9) BUN (test code = 15 mg/dL 7-21 3094-0) Creatinine (test code 0.81 mg/dL 0.57-1.25 = 2160-0) Glucose (test code = 108 mg/dL 70-105 H 2345-7) Calcium (test code = 9.2 mg/dL 8.4-10.2 16568-6) EGFR (test code = 79 mL/min/1.73 [place] [address]-3) NOT ACCURATE CREATININE CLEARANCE IN PREDICTING GLOMERULAR FILTRATION RATE . ESTIMATED GFR I S NOT APPLICABLE FOR DIALYSIS PATIENTS. SOMMER (test code = SOMMER) Efficiency Miner ID - PIAYA L Lab Interpretation Abnormal (test code = 88426-1) [facility] Center[facility]esium2021-05-21 07:01:00 Test Item Value Reference Range Interpretation Comments Magnesium (test code = 2.5 mg/dL 1.6-2.6 89952-8) SOMMER (test code = SOMMRE) Efficiency Miner ID - PIAYA L Lab Interpretation (test Normal code = 49614-4) [facility] CenterPhosphorus2021-05-21 07:01:00 Test Item Value Reference Range Interpretation Comments Phosphorus (test code = 4.3 mg/dL 2.3-4.7 2777-1) SOMMER (test code = SOMMER) Efficiency [employer]er ID - PIAYA L Lab Interpretation (test Normal code = 07633-6) [facility] Center[facility]IC METABOLIC [id number] 07:01:00 Test Item Value Reference Range Interpretation [...] S NOT APPLICABLE FOR DIALYSIS PATIEN TS. Efficiency [employer]er ID - MACHELLE [id number] 07:01:00 Test Item Value Reference Range Interpretation Comments MAGNESIUM (BEAKER) (test code = 2.5 mg/dL 1.6-2.6 627) [employer] ID - MACHELLE [id number] 07:01:00 Test Item Value Reference Range Interpretation Comments PHOSPHORUS (BEAKER) (test code = 4.3 mg/dL 2.3-4.7 604) Efficiency [employer]er ID - MACHELLE LCBC with platelet count + automated [id number] 05:37:00 Test Item Value Reference Range Interpretation Comments WBC (test code = 6690-2) 6.8 See_Comment [A utomated message] The system [employer] generated this result transmitted ref erence range: 3.5 - 10 .5 K/L. The refe rence range was not u sed to interpret this result as normal/abnor mal. RBC (test code = 789-8) 5.14 See_Comment [Au tomated message] The system [employer] generated this result transmitted ref erence range: 3.93 - 5 .22 M/L. The refe rence range was not u sed to interpret this result as normal/abnor mal. MCHC (test code = 786-4) 31.6 See_Comment L [A utomated message] The system [employer] generated this result transmitted ref erence range: [...] See_Comment [Aut omated message] 777-3) The system [employer] generated this result transmitted ref erence range: 150 - 45 0 K/CU MM. The referen ce range was not u sed to interpret this result as normal/abnor mal. MPV (test code = 10.0 fL 9.4-12.3 74562-8) nRBC (test code = 413) 0 See_Comment [Aut omated message] The system [employer] generated this result transmitted ref erence range: [...] See_Comment [Aut omated message] 670) The system [employer] generated this result transmitted ref erence range: 1.56 - 6 .13 K/L. The refe rence range was not u sed to interpret this result as normal/abnor mal. # Lymphs (test code = 2.10 See_Comment [Auto mated message] 414) The system [employer] generated this result transmitted ref erence range: 1.18 - 3 .74 K/L. The refe rence range was not u sed to interpret this result as normal/abnor mal. # Monos (test code = 0.48 See_Comment H [Autom ated message] 415) The system [employer] generated this result transmitted ref erence range: 0.24 - 0 .36 K/L. The refe rence range was not u sed to interpret this result as normal/abnor mal. # Eos (test code = 416) 0.26 See_Comment [Au tomated message] The system [employer] generated this result transmitted ref erence range: 0.04 - 0 .36 K/L. The refe rence range was not u sed to interpret this result as normal/abnor mal. # Baso (test code = 417) 0.04 See_Comment [A utomated message] The system [employer] generated this result transmitted ref erence range: 0.01 - 0 .08 K/L. The refe rence range was not u sed to interpret this result as normal/abnor mal. Immature 1 % 0-1 Granulocytes-Relative (test code = 2801) Lab Interpretation (test Abnormal code = 43839-7) [facility] W/PLT COUNT & AUTO [id number] 05:37:00 Test Item Value Reference Range Interpretation [...] code = 2801) MR, MRA, BRAIN, WITHOUT [id number] 16:54:00Reason for exam:->Ischemic Stroke Evaluation[facility] : 1980 Sex: FFINAL REPORT MR, BRAIN, WITHOUT CONTRAST, MR, MRA, BRAIN, WITHOUT CONTRAST, MR, MRA, NECK, WITHOUT IV CONTRAST INDICATION: Stroke, follow upIschemic Stroke Evaluation TECHNIQUE: Multiplanar, multisequence MR imaging of the brain without intravenous contrast.MRA of the head utilizing 3-D lgmu-yt-ilenvd technique, with 3-D reconstructions.MRA of the neck utilizing 2-D and 3-D cerz-wm-ftzjdg technique, with 3-D reconstructions. COMPARISON: MRI and [...] within the head and neck. Signed: Lakshmi Amadorcox br[place] Verified Date/Time: 02/11/2021 16:54:16 MR, MRA, NECK, WITHOUT IV [id number] 16:54:00Reason for exam:->Ischemic Stroke Evaluation [facility] : 1980 Sex: FFINAL REPORT MR, BRAIN, WITHOUT CONTRAST, MR, MRA, BRAIN, WITHOUT CONTRAST, MR, MRA, NECK, WITHOUT IV CONTRAST INDICATION: Stroke, follow upIschemic Stroke Evaluation TECHNIQUE: Multiplanar, multisequence MR imaging of the brain without intravenous contrast.MRA of the head utilizing 3-D bypu-cz-grajde technique, with 3-D reconstructions.MRA of the neck utilizing 2-D and 3-D pkdp-hn-svnrpi technique, with 3-D reconstructions. COMPARISON: MRI and [...] Verified Date/Time: 02/11/2021 16:54:16 MR, BRAIN, WITHOUT [id number] 16:54:00Reason for exam:->Ischemic Stroke Evaluation [facility] : 1980 Sex: FFINAL REPORT MR, BRAIN, WITHOUT CONTRAST, MR, MRA, BRAIN, WITHOUT CONTRAST, MR, MRA, NECK, WITHOUT IV CONTRAST INDICATION: Stroke, follow upIschemic Stroke Evaluation TECHNIQUE: Multiplanar, multisequence MR imaging of the brain without intravenous contrast.MRA of the head utilizing 3-D xprh-cu-cvxfea technique, with 3-D reconstructions.MRA of the neck utilizing 2-D and 3-D sjdw-uf-hffnum technique, with 3-D reconstructions. COMPARISON: MRI and [...] Date/Time: 02/11/2021 16:54:16 MR brain without IV [id number] 16:54:00Interface, External Ris In - 02/11/2021 4:56 PM CDTFINAL REPORT MR, BRAIN, WITHOUT CONTRAST, MR, MRA, BRAIN, WITHOUT CONTRAST, MR, MRA, NECK, WITHOUT IV CONTRAST INDICATION: Stroke, follow upIschemic Stroke Evaluation TECHNIQUE: Multiplanar, multisequence MR imaging of the brain without intravenous contrast.MRA of the head utilizing 3-D fewd-aj-senaqf technique, with 3-D reconstructions.MRA of the neck utilizing 2-D and 3-D yzvm-gv-bcmatk technique, with 3-D reconstructions. COMPARISON: MRI and [...] Signed: Lakshmi Amador Verified Date/Time: 02/11/2021 16:54:16 [facility] without IV [id number] 16:54:00Interface, External Ris In - 02/11/2021 4:56 PM CDTFINAL REPORT MR, BRAIN, WITHOUT CONTRAST, MR, MRA, BRAIN, WITHOUT CONTRAST, MR, MRA, NECK, WITHOUT IV CONTRAST INDICATION: Stroke, follow upIschemic Stroke Evaluation TECHNIQUE: Multiplanar, multisequence MR imaging of the brain without intravenous contrast.MRA of the head utilizing 3-D ebrn-kh-bhpbak technique, with 3-D reconstructions.MRA of the neck utilizing 2-D and 3-D bzkz-gv-ygrzon technique, with 3-D reconstructions. COMPARISON: MRI and [...] Signed: Lakshmi Amador Verified Date/Time: 02/11/2021 16:54:16 [facility] neck without IV [id number] 16:54:00Interface, External Ris In - 02/11/2021 4:56 PM CDTFINAL REPORT MR, BRAIN, WITHOUT CONTRAST, MR, MRA, BRAIN, WITHOUT CONTRAST, MR, MRA, NECK, WITHOUT IV CONTRAST INDICATION: Stroke, follow upIschemic Stroke Evaluation TECHNIQUE: Multiplanar, multisequence MR imaging of the brain without intravenous contrast.MRA of the head utilizing 3-D jfim-oy-qbvpso technique, with 3-D reconstructions.MRA of the neck utilizing 2-D and 3-D nayu-wi-bholaa technique, with 3-D reconstructions. COMPARISON: MRI and [...] Lakshmi Amador MDReport Verified Date/Time: 02/11/2021 16:54:16 [facility]2021-05-20 14:02:00 Test Item Value Reference Range Interpretation Comments RPR (test code = 80161-1) Nonreactive Nonreactive Lab Interpretation (test code = Normal 35220-8) [facility] CenterRPR2021-[facility]-20 14:02:00 Test Item Value Reference Range Interpretation Comments RPR SCREEN (BEAKER) (test code = Nonreactive Nonreactive 420) Hemoglobin [id number] 09:35:00 Test Item Value Reference Range Interpretation Comments Hemoglobin A1C (test code = 4548-4) 6.0 % 4.3-6.1 Lab Interpretation (test code = Normal 81159-7) [facility] CenterHEMOGLOBIN [id number] 09:35:00 Test Item Value Reference Range Interpretation Comments HEMOGLOBIN A1C (BEAKER) (test code = 6.0 % 4.3-6.1 368) Rapid drug screen, [id number] 07:26:00 Test Item Value Reference Range Interpretation Comments Barbiturate Screen Negative Negative (test code = 06960-3) Benzodiazepine Screen Negative Negative (test code = 86867-6) Cocaine (Metab.) Negative Negative Screen (test code = 3397-7) Methadone Screen (test Negative Negative code = 52894-3) Opiate Screen (test Negative Negative code = 29268-3) Cannabinoid Screen Negative Negative (test code = 98410-2) Amph/Methamph Screen Negative Negative (test code = 05672-3) Phencyclidine Screen Negative Negative (test code = 47862-2) pH, UA (test code = 6.5 5.0-8.0 5803-2) SOMMER (test code = SOMMER) DRUG CUTOFF CONC.Cocaine 300 ng/mL Cannabinoid 50 ng/mLBenzodiazepine 200 ng/mLBarbiturate 200 ng/mLPhencyclidine 25 ng/mLOpiate 300 ng/mLMethadone 300 ng/mLAmphetamine/ 1000 ng/mL Methamphetamine This assay provides an unconfirmed qualitative test result for the clinical management of patients in emergency situations. Chain of custody not maintained. Some ujtk-tyl-sgzgaoe medications, as well as adulterants, may cause inaccurate results. Clinical correlation should be applied. A more comprehensive drug screen or confirmation of a detected drug may be performed upon request.Efficiency Miner ID - VITE M Lab Interpretation Normal (test code = 40829-7) [facility] CenterRAPID DRUG SCREEN, [id number] 07:26:00 Test Item Value Reference Range Interpretation [...] situations. Chain of custody not maintained. Some pens-ywq-lnvcuce medications, as well as adulterants, may cause inaccurate results. Clinical correlation should be applied. A more comprehensivedrug screen or confirmation of a detected drug may be performed upon request.Efficiency Miner ID - VIET MUrinalysis with Microscopic If [id number] 07:11:00 Test Item Value Reference Range Interpretation Comments Color, UA (test code = Light Yellow 5778-6) Clarity, UA (test code = Clear 5767-9) Specific [place], UA (test 1.012 1.001-1.035 code = 5811-5) pH, UA (test code = 6.5 5.0-8.0 5803-2) Protein, UA (test code = Negative Negative 45145-5) Glucose, UA (test code = Negative Negative 365) Ketones, UA (test code = Negative Negative 2514-8) Bilirubin, UA (test code = Negative Negative 98962-1) Blood, UA (test code = Small Negative A 59138-2) Nitrite, UA (test code = Negative Negative 5802-4) Leukocytes, UA (test code Small Negative A = 5799-2) Urobilinogen, UA (test 0.2 mg/dL 0.2-1 code = 33306-6) Specimen Source (test code = 2795) SOMMER (test code = SOMMER) Efficiency Miner ID - [auto]Efficiency Miner ID - tech Lab Interpretation (test Abnormal code = 02215-8) [facility] CenterUrinalysis Microscopic [id number] 07:11:00 Test Item Value Reference Range Interpretation Comments RBC, UA (test 11 See_Comment [Automated me ssage] code = 19747-6) The system w [facility] generated this result transmitted ref erence [...] UA (test code = The system w [facility] 77575-5) generated this result transmitted ref erence range: /HPF. Th e reference range was not used to int erpret this result as normal/abnormal . SOMMER (test code Efficiency Miner ID - tech = SOMMER) [facility] CenterURINALYSIS WITH MICROSCOPIC IF [id number] 07:11:00 Test Item Value Reference Range Interpretation [...] = 463) SOURCE(BEAKER) (test code = 2795) Efficiency Miner ID - [auto]Efficiency Miner ID - techURINALYSIS [id number] 07:11:00 Test Item Value Reference Range Interpretation Comments RBC UA (BEAKER) (test code = 519) 11 /HPF WBC UA (BEAKER) (test code = 520) 11 /HPF MUCUS (BEAKER) (test code = 1574) Rare SQUAMOUS EPITHELIAL (BEAKER) (test 3 /HPF code = 516) Efficiency Miner ID - techDigoxin [id number] 06:22:00 Test Item Value Reference Range Interpretation Comments Digoxin Lvl (test code = <0.30 0.8-2 L 31772-1) SOMMER (test code = SOMMER) Efficiency Miner ID - MACHELLE L Lab Interpretation (test Abnormal code = 29434-8) [facility] CenterDIGOXIN [id number] 06:22:00 Test Item Value Reference Range Interpretation Comments DIGOXIN LEVEL (BEAKER) (test code = < ng/mL 0.80-2.00 L 669) Efficiency Miner ID - MACHELLE RHhpkeqgzvtgb5073-92-25 05:58:00 Test Item Value Reference Range Interpretation Comments Homocysteine (test code = 7.3 umol/L 5.1-15.4 50275-1) SOMMER (test code = SOMMER) Efficiency Miner ID - MACHELLE L Lab Interpretation (test Normal code = 13716-4) [facility] CenterTSH/Free T4 If [id number] 05:58:00 Test Item Value Reference Range Interpretation Comments TSH (test code = 4.368 See_Comment [Automated 96141-6) message] The system which generated this result transmit aida reference range : 0.350 - 4.940 uIU/mL. The reference range was not used to interpret this result as normal/abnormal . SOMMER (test code = SOMMER) Efficiency Miner ID - MACHELLE L Lab Interpretation Normal (test code = 20909-3) [facility] CenterVitamin B12 and [id number] 05:58:00 Test Item Value Reference Range Interpretation Comments Vitamin B12 (test 557 pg/mL 213-816 code = 2132-9) Folate (test code = 11.20 ng/mL See_Comment [Automa aida 2284-8) message] The system which generated this result transmit aida reference range : >=7.00. The reference range was not used to interpret this result as normal/abnormal . SOMMER (test code = SOMMER) Efficiency Miner ID - MACHELLE L Lab Interpretation Normal (test code = 35360-0) [facility] CenterHOMOCYSTEINE2021-05-20 05:58:00 Test Item Value Reference Range Interpretation Comments HOMOCYSTEINE (BEAKER) (test code = 7.3 umol/L 5.1-15.4 642) Efficiency Miner ID - MACHELLE LTSH/FREE T4 IF [id number] 05:58:00 Test Item Value Reference Range Interpretation Comments THYROID STIMULATING HORMONE 4.368 uIU/mL 0.350-4.940 (BEAKER) (test code = 772) Efficiency Miner ID - MACHELLE LVITAMIN B12 AND [id number] 05:58:00 Test Item Value Reference Range Interpretation Comments VITAMIN B12 557 pg/mL 213-816 (BEAKER) (test code = 774) FOLATE (BEAKER) 11.20 ng/mL See_Comment [Automated message] (test code = 362) The system which generated this result transmitted ref erence range: >=7.00. The reference range was not used to interpr et this result as normal/abnormal . Efficiency Miner ID - MACHELLE LC-Reactive Fuzcgme9974-08-36 04:54:00 Test Item Value Reference Range Interpretation Comments CRP (test code = 676) 0.81 mg/dL 0-0.5 H SOMMER (test code = SOMMER) Efficiency Miner ID - MACHELLE L Lab Interpretation (test Abnormal code = 97313-8) [facility] CenterMAGNESIUM2021-05-20 04:54:00 Test Item Value Reference Range Interpretation Comments MAGNESIUM (BEAKER) 2.1 mg/dL 1.6-2.6 Specimen slightly (test code = 627) hemolyzed Efficiency Miner ID - MACHELLE [id number] 04:54:00 Test Item Value Reference Range Interpretation Comments PHOSPHORUS (BEAKER) 4.3 mg/dL 2.3-4.7 Specimen slightly (test code = 604) hemolyzed Efficiency Miner ID - MACHELLE LBASIC METABOLIC [id number] 04:54:00 Test Item Value Reference Range Interpretation [...] S NOT APPLICABLE FOR DIALYSIS PATIEN TS. Efficiency Miner ID - PIAYA LC-REACTIVE [id number] 04:54:00 Test Item Value Reference Range Interpretation Comments C-REACTIVE PROTEIN (BEAKER) (test 0.81 mg/dL 0.00-0.50 H code = 676) Efficiency Miner ID - PIAYA LCBC W/PLT COUNT & AUTO [id number] 02:54:00 Test Item Value Reference Range Interpretation [...] = 2801) RAD, CHEST, 1 VIEW, NON [id number] 22:40:00Reason for exam:->strokeShould this be performed at the bedside?->Yes [facility] 1980 Sex: [...] Nieves Verified Date/Time: 02/10/2021 22:40:02 Reading Location: [address] Transitional Reading Room XR chest 1 view portable / [id number] 22:40:00Interface, External Ris In - 02/10/2021 10:42 [...] [place] Verified Date/Time: 02/10/2021 22:40:02 Reading Location: [place] [id number] Transitional [facility] & AUTO [id number] 22:16:00 Test Item Value Reference Range Interpretation [...] Range Interpretation Comments BNP (test code = 72729-5) <10 0-100 SOMMER (test code = SOMMER) Efficiency Miner ID - BS Lab Interpretation (test Normal code = 28115-6) [facility] CenterB-TYPE NATRIURETIC FACTOR (BNP)2021-02-10 22:04:00 Test Item Value Reference Range Interpretation Comments B-TYPE NATRIURETIC PEPTIDE (BEAKER) < pg/mL 0-100 (test code = 700) Efficiency Miner ID - BSHigh Sensitivity Troponin I ([facility]/Haley Only)2021-02-10 21:57:00 Test Item Value Reference Range Interpretation Comments Troponin I HS <4 See_Comment [Automated (test code = message] The 41481-1) system which generated this result transmitted reference range : <=17 pg/ml. The reference range was not used to interpret this result as normal/abnormal . SOMMER (test code = Efficiency Miner ID - SOMMER) BSThe APPIAN BPM DEVELOPER STAT High Sensitivity Troponin-I results should be used in conjunction with other diagnostic information such as ECG, clinical observations and information, and patient symptoms to aid in the diagnosis of CT. Lab Interpretation Normal (test code = 32475-9) [facility] CenterHIGH SENSITIVITY TROPONIN [id number] 21:57:00 Test Item Value Reference Range Interpretation Comments HIGH SENSITIVITY < pg/ml See_Comment [Automated message] TROPONIN I (test code = The system which [id number]) generated this result transmitted ref erence range: <=17. Th e reference range was not used to interpr et this result as normal/abnormal . Efficiency Miner ID - BSThe APPIAN BPM DEVELOPER STAT High Sensitivity Troponin-I results should be used in conjunctionwith other diagnostic information such as ECG, clinical observations and information, and patient symptoms to aid in the diagnosis of CT.Lipid [id number] 21:54:00 Test Item Value Reference Range Interpretation Comments Triglycerides (test 171 mg/dL Specimen code = 2571-8) markedly hemolyzed Cholesterol (test 218 mg/dL Specimen code = 2093-3) markedly hemolyzed HDL (test code = 47 mg/dL 2084-9) LDL Calculated (test 137 mg/dL code = 18197-9) SOMMER (test code = Triglyceride SOMMER) Reference Range: Low Risk <150 Borderline 150-199 High Risk 200-499 Very High Risk >=500 Cholesterol Reference Range: Low Risk <200 Borderline 200-239 High Risk >240 HDL Cholesterol Reference Range: Low Risk >=60 High Risk <40 LDL Cholesterol Reference Range: Optimal <100 Near Optimal 100-129 Borderline 130-159 High 160-189 Very High >=190 Efficiency Miner ID - BS [facility] CenterLIPID [id number] 21:54:00 Test Item Value Reference Range Interpretation [...] Borderline 130-159 High 160-189 Very High >=190 Efficiency Miner ID - BSComprehensive metabolic [id number] 21:52:00 Test Item Value Reference Range Interpretation Comments Protein, Total 8.0 See_Comment Specimen slig htly (test code = hemolyzed 2885-2) [Automated message] The system which generated this result transmit aida reference range : 6.0 - 8.3 gm/dL . The reference range was not u sed to interpret th is result as normal/abnormal . Albumin (test code 4.2 g/dL 3.5-5 Specimen slightly = 24186-6) hemolyzed Alkaline 135 U/L 40-150 Phosphatase (test code = 6768-6) Total Bilirubin 0.2 mg/dL 0.2-1.2 Specimen sli ghtly (test code = hemolyzed 1974-2) Sodium (test code = 139 meq/L 856-101 7806-2) Potassium (test 4.5 meq/L 3.5-5.1 Specimen sli ghtly code = 2823-3) hemolyzed Chloride (test code 103 meq/L 98-107 = 2075-0) CO2 (test code = 25 meq/L 22-29 2027-9) BUN (test code = 9 mg/dL 7-21 3094-0) Creatinine (test 0.78 mg/dL 0.57-1.25 Specimen sl ightly code = 2160-0) hemolyzed Glucose (test code 105 mg/dL 70-105 = 2345-7) Calcium (test code 9.6 mg/dL 8.4-10.2 = 96858-6) AST (test code = 28 U/L 5-34 Specimen sl ightly 1920-8) hemolyzed ALT (test code = 52 U/L 6-55 Specimen sl ightly 1742-6) hemolyzed EGFR (test code = 82 mL/min/1.73 [place] [address]-7) NOT ACCURATE CREATININE CLEARANCE IN PREDICTING GLOMERULAR FILTRATION RATE . ESTIMATED GFR I S NOT APPLICABLE FOR DIALYSIS PATIEN TS. SOMMER (test code = Efficiency Miner ID - BS SOMMER) [facility] CenterCreatine Kinase (CK)2021-02-10 21:52:00 Test Item Value Reference Range Interpretation Comments Total CK (test code = 70 U/L 29-200 2157-6) SOMMER (test code = SOMMER) Efficiency Miner ID - BS Lab Interpretation (test Normal code = 40212-0) [facility] CenterMAGNESIUM2021-05-19 21:52:00 Test Item Value Reference Range Interpretation Comments MAGNESIUM (BEAKER) 2.2 mg/dL 1.6-2.6 Specimen slightly (test code = 627) hemolyzed Efficiency Miner ID - [id number] 21:52:00 Test Item Value Reference Range Interpretation Comments PHOSPHORUS (BEAKER) 4.4 mg/dL 2.3-4.7 Specimen slightly (test code = 604) hemolyzed Efficiency Miner ID - BSCOMPREHENSIVE METABOLIC [id number] 21:52:00 Test Item Value Reference Range Interpretation [...] S NOT APPLICABLE FOR DIALYSIS PATIEN TS. Efficiency Miner ID - BSCREATINE KINASE (CK)2021-02-10 21:52:00 Test Item Value Reference Range Interpretation Comments CREATINE KINASE TOTAL (BEAKER) (test 70 U/L 29-200 code = 380) Efficiency Miner ID - [id number] 21:46:00 Test Item Value Reference Range Interpretation Comments PTT (test code = 54103-9) 30.5 See_Comment [ Automated message] The system [employer] generated this result transmitted ref erence range: 22.5 - 3 6.0 seconds. The re ference range was not u sed to interpret this result as normal/abnor mal. Lab Interpretation (test Normal code = 06572-9) [facility] CenterLactic acid, [id number] 21:46:00 Test Item Value Reference Range Interpretation Comments Lactate, Venous (test 1.96 mmol/L 0.5-2.2 Specim en code = 2872) markedly hemolyzed SOMMER (test code = SOMMER) Efficiency Miner ID - BS Lab Interpretation Normal (test code = 00023-7) [facility] CenterAPTT2021-05-19 21:46:00 Test Item Value Reference Range Interpretation Comments PARTIAL THROMBOPLASTIN TIME 30.5 seconds 22.5-36.0 (BEAKER) (test code = 760) LACTIC ACID, [id number] 21:46:00 Test Item Value Reference Range Interpretation Comments LACTATE BLOOD VENOUS 1.96 mmol/L 0.50-2.20 Specime n markedly (2) (BEAKER) (test hemolyzed code = 2872) Efficiency Miner ID - BSProthrombin time/[id number] 21:45:00 Test Item Value Reference Interpretation Comments [...] valves. Lab Interpretation Normal (test code = 29560-8) [facility] CenterPROTHROMBIN TIME/[id number] 21:45:00 Test Item Value Reference Range Interpretation Comments PROTIME (BEAKER) 12.7 seconds 11.9-14.2 (test code = 759) INR (BEAKER) (test 0.98 See_Comment [Automat ed message] code = 370) The system [employer] h generated this result transmitted ref erence range: <=5.90. The reference range was not used to int erpret this result as normal/abnormal . RECOMMENDED COUMADIN/WARFARIN INR THERAPY RANGESSTANDARD DOSE: 2.0 - 3.0 Includes: PROPHYLAXIS forvenous thrombosis, systemic embolization; TREATMENT for venous thrombosis and/or pulmonary embolus.HIGH RISK: Target INR is 2.5-3.5 for patients with mechanical heart valves.POC-Glucose [id number] 21:39:00 Test Item Value Reference Range Interpretation Comments POC-Glucose Meter (test 93 mg/dL 70-110 : TE STED AT [facility] code = 1531) [address] [place], [address]: Efficiency Miner/Techni rhonda ID = [id number] for AILYN JAVIER Lab Interpretation (test Normal code = 15610-6) [facility] CenterPOCT-GLUCOSE [id number] 21:39:00 Test Item Value Reference Range Interpretation Comments POC-GLUCOSE METER 93 mg/dL 70-110 : TESTED A T [facility] 6720 (BEAKER) (test code = [place], 1538) [address]: Efficiency Miner/Techni rhonda ID = [id number] for GERTRUDE SHAY [id number] 15:45:00 Test Item Value Reference Range Interpretation Comments SURG (test code = SURG) RUN DATE: 09/30/20 [facility] - LAB PAGE 1 RUN TIME: 1545 Specimen Inquiry RUN USER: INTERFACE PATIENT: ADAM MARSH LOC: [place] #: [id number] AGE/SX: 40/F ROOM: RE09/29/20[facility] DR: Linus Boone MD : 82 BED: DIS: STATUS: [facility] TLOC: SPEC #: [id number]:[id number] RECD: 09/29/20 STATUS: MACIEL REChapis #: [id number] WU: 09/29/[address] [facility] [address]: Linus Boone MD ENTERED: 09/29/20 SP TYPE: SURG OTHR DR: Undefined Provider ORDERED: SURG PATH LVL 4 COPIES TO: Linus Boone MD [address] [place] [address] Undefined Provider HISTOLOGY: TISSUE ID BLK PCS DHIRAJ LEV PROCEDURE DISPOSITION ____ ___ ___ ___ STOMACH, NOS A 1 2 PROCEDURES: SURG PATH LVL 4 (09/29/20) TISSUES: A. STOMACH, NOS - GASTRIC BIOPSY CLINICAL HISTORY R10.13, K21.9, K92.0, R14.0, R11.2, R19.7, R19.4 CPT CODES CPT CODE(S): 71162 , , , , , , FINAL DIAGNOSIS Stomach, biopsy: MILD CHRONIC GASTRITIS NEGATIVE FOR INTESTINAL METAPLASIA, DYSPLASIA, OR MALIGNANCY NEGATIVE FOR HELICOBACTER PYLORI ORGANISMS GROSS DESCRIPTION Gastric biopsy. Received in formalin are two wilkinson tissue fragments, 0.4 cm each, all as A. bk/nr Grossing performed at [facility] Pathology, [address], [address], [place] [address]. Bead Cutter: Aditya Hanson M.D. CONTINUED ON NEXT PAGE RUN DATE: 09/30/20 [facility] PAGE 2 RUN TIME: 1545 Specimen Inquiry RUN USER: INTERFACE SPEC #: [id number] PATIENT: ADAM MARSH #[id number] (Continued) MICROSCOPIC DESCRIPTION Gastric biopsy. Sections demonstrate gastric mucosa with mild chronic inflammation. No dysplasia or malignancy is identified. No evidence of Helicobacter pylori organisms or intestinal metaplasia is seen. Signed SIGNATURE ON FILE Hector Issa 09/30/20 1545 END OF REPORT COVID 19 INHOUSE [id number] 13:41:00 Test Item Value Reference Range Interpretation Comments COVID 19 INHOUSE AG NEGATIVE Negative Per marino facturer, (test code = negative result s should [id number]) be treated aspr esumptive and, if inconsi [...] symptoms co nsistent with COVID-19. BASIC METABOLIC [id number] 13:40:00 Test Item Value Reference Range Interpretation [...] MG/DL 8.5-10.1 N - XR CHEST 1 [id number] 13:33:00 [facility] : 1980 Sex: F Name: ADAM MARSH [facility] : 05/[birth year] Age/S: 40 / F [address] [place] Unit #: [id number] Loc: [place] [address] Phys: Linus Boone MD Acct: [id number] Dis Date: Status: [facility] PHONE #: [phone] Exam Date: 09/28/2020 1326 FAX #: Reason: PREOP EXAMS: CPT: [id number] XR CHEST 1 V 12832 Fluoro Time: DAP (Gy m2): Air Kerma [...] normal. IMPRESSION: No acute cardiopulmonary process. at 5883 Reported and signed by: Lynda Pitts M.D. CC: Linus Boone MD PAGE 1 Signed Report Name: ADAM MARSHland : 1980 Age/S: 40 / F [address] [place] [address] Unit #: [id number] Loc: [place] [address] Phys: Linus Boone MD Acct: [id number] Dis Date: Status: [facility] PHONE #: [phone] Exam Date: 09/28/2020 1323 FAX #: Reason: PREOP EXAMS: CPT: [id number] XR CHEST 1 V 34861 Fluoro Time: DAP (Gy m2): Air Kerma (mGy): <Continued> Technologist: Shari Davila RT(R)(CT) Trnscb Date/Time: 09/28/2020 (2913) 16 Orig Print D/T: S: 09/28/2020 (1972) PAGE 2 SignedReportPROTHROMBIN [id number] 13:29:00 Test Item Value Reference Range Interpretation Comments PT PATIENT (test code = PTP) 10.6 SECONDS 9.3-12.9 N INTERNATIONAL NORMAL RATIO 0.95 INR Unit 0.8-1.2 N (test code = INR) THROMBOPLASTIN TIME [id number] 13:29:00 Test Item Value Reference Range Interpretation Comments THROMBOPLASTIN TIME PARTIAL 28.0 SECONDS 26-35 N (test code = PTT) CBC W/AUTO [id number] 13:26:00 Test Item Value Reference Range Interpretation [...] code NO DIFF/SCN CRITERIA = MDIFF) POCT-GLUCOSE [id number] 10:22:00 Test Item Value Reference Range Interpretation Comments POC-GLUCOSE METER 102 mg/dL 70-110 TESTED AT [facility] 67[address] (ARNOL) (test code = [place] 1538) [address] MR, MRA, BRAIN, WITHOUT [id number] 09:32:00Reason for exam:->Ischemic Stroke EvaluationFINAL REPORT MRA Head CLINICAL HISTORY: Ischemic Stroke TECHNIQUE: MRA of the head utilizing 3-D surp-qo-vjgeud technique, with 3-D reconstructions. COMPARISON: None FINDINGS: There is no evidence of intracranial aneurysm, focal stenosis, or major branch vessel occlusion. IMPRESSION: No evidence for a major [place] proximal branch vessel occlusion. MRA Neck CLINICAL HISTORY: Ischemic Stroke TECHNIQUE: MRA of the neck utilizing 2-D and 3-D epsp-dt-irjfdw technique, with 3-D reconstructions. COMPARISON: None FINDINGS: The carotid arteries in the neck are patent including their bifurcations. There is antegrade flow in the vertebral arteries in the neck. IMPRESSION: No evidence of hemodynamically significant stenosis in the cervical carotid or vertebral arteries by NASCET criteria. Signed: Santos Winn MDR[facility] Verified Date/Time: 08/21/2018 09:32:09 Reading Location: [address] Neuro Reading Room MR, MRA, NECK, WITHOUT IV [id number] 09:32:00Reason for exam:->Ischemic Stroke EvaluationFINAL REPORT MRA Head CLINICAL HISTORY: Ischemic Stroke TECHNIQUE: MRA of the head utilizing 3-D prny-me-mvaavw technique, with 3-D reconstructions. COMPARISON: None FINDINGS: There is no evidence of intracranial aneurysm, focal stenosis, or major branch vessel occlusion. IMPRESSION: No evidence for a major [place] proximal branch vessel occlusion. MRA Neck CLINICAL HISTORY: Ischemic Stroke TECHNIQUE: MRA of the neck utilizing 2-D and 3-D vqtt-ck-nipdfa technique, with 3-D reconstructions. COMPARISON: None FINDINGS: The carotid arteries in the neck are patent including their bifurcations. There is antegrade flow in the vertebral arteries in the neck. IMPRESSION: No evidence of hemodynamically significant stenosis in the cervical carotid or vertebral arteries by NASCET criteria. Signed: Santos Winn Verified Date/Time: 08/21/2018 09:32:09 Reading Location: [address] Neuro Reading Room MR, BRAIN, WITHOUT [id number] 09:25:00Reason for exam:- >Ischemic Stroke EvaluationFINAL REPORT [...] Winn Verified Date/Time: 08/21/2018 09:25:25 Reading Location: [address] Neuro R eading Room POCT-GLUCOSE [id number] 21:26:00 Test Item Value Reference Range Interpretation Comments POC-GLUCOSE METER 119 mg/dL 70-110 H TESTED AT [place] [address] ([facility]) (test code = AYLIN Rivera [facility] 1538) [address] POCT-GLUCOSE [id number] 18:03:00 Test Item Value Reference Range Interpretation Comments POC-GLUCOSE METER 119 mg/dL 70-110 H TESTED AT [place] [address] ([facility]) (test code = [facility] 1538) [address] POCT-GLUCOSE [id number] 12:39:00 Test Item Value Reference Range Interpretation Comments POC-GLUCOSE METER 120 mg/dL 70-110 H TESTED AT [facility] 6720 (BEAKER) (test code = AYLIN Rivera [facility] 1538) [address] RAD, CHEST, 1 VIEW, NON [id number] 12:04:00Reason for exam:->To Locate Heart Device (Pacemaker)Should [...] MDReport Verified Date/Time: 08/20/2018 12:04:06 Reading Location: [facility] Radiology Reading Room POCT-GLUCOSE [id number] 09:17:00 Test Item Value Reference Range Interpretation Comments POC-GLUCOSE METER 121 mg/dL 70-110 H TESTED AT [place] [address] (BEAKER) (test code = AYLIN Rivera [facility] 1538) [address] BASIC METABOLIC [id number] 06:56:00 Test Item Value Reference Range Interpretation [...] NOT APPLICABLE FOR DIALYSIS PATIEN TS. POCT-GLUCOSE [id number] 21:09:00 Test Item Value Reference Range Interpretation Comments POC-GLUCOSE METER 109 mg/dL 70-110 [facility] [place] [address] [facility] (test code = [facility] 1538) [address] POCT-GLUCOSE [id number] 17:15:00 Test Item Value Reference Range Interpretation Comments POC-GLUCOSE METER 117 mg/dL 70-110 H TESTED AT [place] [address] [facility] (test code = [facility] 1538) [address] VITAMIN B12 AND [id number] 06:39:00 Test Item Value Reference Range Interpretation Comments VITAMIN B12 (BEAKER) (test code = 524 pg/mL 213-816 774) FOLATE (BEAKER) (test code = 362) 13.5 ng/mL >=7.0 BASIC METABOLIC [id number] 05:48:00 Test Item Value Reference Range Interpretation [...] S NOT APPLICABLE FOR DIALYSIS PATIEN TS. [id number] 15:42:00 Test Item Value Reference Range Interpretation Comments RPR SCREEN (BEAKER) (test code = Nonreactive Nonreactive 420) HEMOGLOBIN [id number] 09:14:00 Test Item Value Reference Range Interpretation Comments HEMOGLOBIN A1C (BEAKER) (test code = 5.3 % 4.3-6.1 368) TSH/FREE T4 IF [id number] 04:49:00 Test Item Value Reference Range Interpretation Comments THYROID STIMULATING HORMONE 3.18 uIU/mL 0.35-4.94 (BEAKER) (test code = 772) BASIC METABOLIC [id number] 04:38:00 Test Item Value Reference Range Interpretation [...] NOT APPLICABLE FOR DIALYSIS PATIEN TS. LIPID [id number] 04:38:00 Test Item Value Reference Range Interpretation [...] 130-159 High 160-189 Very High >=190HEPATIC FUNCTION [id number] 04:38:00 Test Item Value Reference Range Interpretation [...] (test code = 413) AFB Culture and [id number] 13:24:00Specimen/Source: Wound/PACEMAKERCollected: 09/05/2017 19:45 Status: Final Last Updated: 11/01/2017 13:24 [id number] (Final) (Final) 09/07/17 No acid fast bacill seen on direct smear Culture Result (Final) (Final) 11/01/17 No growth of AFB at six (6) weeksFungus Culture with [id number] 12:12:00 Specimen/Source: Wound/PACEMAKERCollected: 09/05/2017 19:45 Status: Final Last Updated: 10/22/2017 12:12 Fungal Smear Result (Final) (Final) 09/06/17 No yeast or hyphae seen Culture Result (Final) (Final) 10/22/17 No fungus isolated at 6 weeksCulture, Blood [id number] 08:23:00Specimen: BloodCollected: 09/04/2017 20:30 Status: Final Last Updated: 09/10/2017 08:23 Culture Result (Final) (Final) No Growth After 5 DaysCulture, Blood [id number] 08:23:00Specimen: BloodCollected: 09/04/2017 20:15 Status: Final Last Updated: 09/10/2017 08:23 Culture Result (Final) (Final) No Growth After 5 DaysCulture, Wound [id number] 08:52:00Specimen: WoundCollected: 09/05/2017 19:45 Status: Final Last Updated: 09/08/2017 08:52 Gram Stain (Final) (Final) 09/06/17 No organisms seen, Few WBC's Culture Result (Final) (Final) 09/08/17 Anaerobic culture:No anaerobes isolated at 3 days Isolate (Final) (Final) 09/07/17Few Staph-coag positive Isolate Staph-coag positive JERMAINE (mcg/ml) Amoxicillin/Clav (AUG)<=4/2 Susceptible Ampicillin (AM) >8 Resistant Ampicillin/Sulb (A/S) <=8/4 Susceptible Cefazolin (CFZ) <=4 Susceptible Ceftriaxone (CYLINDER MACHINE OPERATOR PULP DRIER) <=4 Susceptible Chloramphenicol (C) <=8 Susceptible Ciprofloxacin (CP) <=1 Susceptible Clindamycin (CM) 0.5 Susceptible Erythromycin (E) <=0.25 Susceptible Gentamicin (GM) <=1 Susceptible Imipenem (IMP) <=4 Susceptible Levofloxacin (LEV) <=0.5 Susceptible Linezolid (LNZ) 4 Susceptible Oxacillin (OX1) 0.5 Susceptible Penicillin (P) >8 Resistant Rifampin (RA) <=1 Susceptible Tetracycline (TE) <=1 Susceptible Trimethoprim/Sulfa <=0.5/9.Susceptible (SXT) 5 Vancomycin (VA) 2 SusceptibleRenal [id number] 08:51:00 Test Item Value Reference Range Interpretation [...] National Kidney Foundation,http :[email or web address] ep.nih.gov CBC with [id number] 07:39:00 Test Item Value Reference Range Interpretation [...] code = ALYMPH) 1.7 K/cumm 0.5-4.[address] [facility] Abs (test code = AMONO) 0.3 K/cumm 0.0-1.2 N Eos Abs (test code = AEOS) 0.29 K/cumm 0.00-0.74 N Baso Abs (test code = ABASO) 0.0 K/cumm 0.00-0.21 N Vancomycin, [id number] 12:33:00 Test Item Value Reference Range Interpretation Comments Vanco, Trou (test code = VANTR) 7.9 ug/mL 10.0-20.0 L Magnesium, [id number] 06:37:00 Test Item Value Reference Range Interpretation Comments Magnesium (test code = MG) 2.4 mg/dL 1.7-2.5 N Renal [id number] 06:29:00 Test Item Value Reference Range Interpretation [...] National Kidney Foundation,http :[email or web address] ep.nih.gov BHCG, Serum, [id number] 06:26:00 Test Item Value Reference Range Interpretation Comments Preg Qual [Se] (test code = BSHCG) Negative Negative N CBC with [id number] 06:24:00 Test Item Value Reference Range Interpretation [...] code = ALYMPH) 1.6 K/cumm 0.5-4.[address] [facility] Abs (test code = AMONO) 0.4 K/cumm 0.0-1.2 N Eos Abs (test code = AEOS) 0.18 K/cumm 0.00-0.74 N Baso Abs (test code = ABASO) 0.0 K/cumm 0.00-0.21 N XR CHEST 1 [id number] 16:29:55XR CHEST 1 VIEWLOCATION: [id number]: None.INDICATION: REVIEW PICC LINE PLACEMENTDISCUSSION:AP chest and [...] = TSH) 3.44 mIU/mL 0.270-4.200 N Lipid [id number] 05:47:00 Test Item Value Reference Range Interpretation Comments Cholesterol (test 160 mg/dL 0-200 N code = CHOL) Triglycerides (test 126 mg/dL 9-200 N code = TRIG) HDL (test code = 35 mg/dL 50-60 L HDL) Chol/HDL (test code 4.6 Ratio 0.0-4.4 H = CHOLPHDL) LDL, Calculated 100 0-130 N (NOTE)RISK O F HEART (test code = LDLC) DISEASEPu blished by [place] Islander Heart AssociationAnal yte Optim al Boderline Increased RiskC HOL <200 200-239 >240TRI G <150 150-199 >200HDL Male: >60 <40HDL Female: >60 <50 LDL < 100 130-15 9 >160 LDL NEAR OPTIMAL IS 100- 129 VLDL (test code = 25 mg/dL 5-40 N VLDL) LDL/HDL (test code = 3 LDLPHDL) Basic Metabolic [id number] 05:47:00 Test Item Value Reference Range Interpretation [...] the National Kidney Foundation,http :[email or web address] ep.nih.gov Magnesium, [id number] 05:47:00 Test Item Value Reference Range Interpretation Comments Magnesium (test code = MG) 2.3 mg/dL 1.7-2.5 N CBC with [id number] 05:36:00 Test Item Value Reference Range Interpretation [...] code = ALYMPH) 2.2 K/cumm 0.5-4.[address] Abs (test code = AMONO) 0.3 K/cumm 0.0-1.2 N Eos Abs (test code = AEOS) 0.24 K/cumm 0.00-0.74 N Baso Abs (test code = ABASO) 0.0 K/cumm 0.00-0.21 N Partial Thromboplastin [id number] 21:26:00 Test Item Value Reference Range Interpretation Comments aPTT (test code = PTT) 29.00 seconds 24.39-37.25 N Prothrombin [id number] 21:26:00 Test Item Value Reference Range Interpretation Comments PT (test code = PT) 10.70 seconds 9.78-13.35 N INR (test code = INR) 0.95 Ratio 0.6-1.2 N Comprehensive Metabolic [id number] 21:23:00 Test Item Value Reference Range Interpretation [...] National Kidney Foundation,http :[email or web address] ep.nih.gov CBC with [id number] 21:16:00 Test Item Value Reference Range Interpretation [...] code = ALYMPH) 2.2 K/cumm 0.5-4.[address] [facility] Abs (test code = AMONO) 0.4 K/cumm 0.0-1.2 N Eos Abs (test code = AEOS) 0.17 K/cumm 0.00-0.74 N Baso Abs (test code = ABASO) 0.1 K/cumm 0.00-0.21 N
[2021-11-10] MEDS ORDERED: FENTANYL CITR 100 MCG/2 ML ONE (12:56)
[2021-11-10 13:28] LABS: Absolute Lymphocytes (CBC) 1.2 K/uL (0.7-4.9); Hematocrit 41.3 % (36.0-45.0); Lymphocytes % 13.3 % (15.3-44.8); MPV 8.1 fL (7.6-11.3); Protime INR 0.93; RBC Red Blood Cell Count 4.87 M/uL (3.86-4.86)
[2021-11-10 13:54] LABS: ALT/SGPT 32 U/L (12-78); AST/SGOT 13 U/L (15-37); Albumin 3.5 g/dL (3.4-5.0); Alkaline Phosphatase 103 U/L (45-117); BUN Blood Urea Nitrogen 14 mg/dL (7-18); Bicarbonate 26 mmol/L (21-32); Bilirubin Direct < 0.1 mg/dL (0-0.2); Bilirubin Total 0.2 mg/dL (0.2-1.0); Glucose Level 128 mg/dL (74-106); Magnesium 2.6 mg/dL (1.8-2.4); NT PRO-BNP 33 pg/mL (<125); Potassium 4.1 mmol/L (3.5-5.1); Protein, Total 7.5 g/dL (6.4-8.2); Sodium Level 140 mmol/L (136-145)
--- NOTE | 2021-11-10 14:12 | RAD REPORT ---
EXAM DESCRIPTION: RAD - Chest Single View - 11/10/2021 2:02 pm CLINICAL HISTORY: CHEST PAIN COMPARISON: Chest Single View dated 11/07/2021; Chest Single View dated 09/29/2021; Chest Single View d ated 07/03/2021; Chest Pa And Lat (2 Views) dated 04/30/2021 FINDINGS: Lines: Pacemaker. Lungs: No evidence of edema or pneumonia. Pleural: No significant pleural effusions or pneumothorax. Cardiac: The heart size is within normal limits. Bones: No acute fractures. Other: IMPRESSION: No acute cardiopulmonary disease.
[2021-11-10] MEDS ORDERED: METHYLPREDNISOLONE 125 MG INJ ONE (16:54)
[2021-11-10] MEDS ORDERED: ALBUTEROL 2.5 MG/3 ML NEB SOL ONE (16:55)
--- NOTE | 2021-11-10 17:07 | EDPHYS ---
Physician Documentation [facility] Name: Jenni Draper Age: 41 yrs Sex: Female : 1980 Arrival Date: 11/10/2021 Time: 11:40 Bed 16 Private MD: ED Physician Kong Reyes HPI: 11/10 12:35 This 41 yrs old Female presents to ER via Wheelchair with complaints of Chest Pain, cp Shortness Of Breath. 12:35 The patient or guardian reports chest pain that is located primarily in the anterior cp chest wall. 12:35 Onset: today. Associated signs and symptoms: Pertinent positives: cough, shortness of cp breath, Pertinent negatives: lower extremity pain, lower extremity swelling, vomiting, fever. 12:35 The chest pain is described as a pressure. Duration: The patient or guardian reports cp multiple episodes, that wax and wane. 12:35 The pain radiates to the left arm. The patient has experienced similar episodes in the cp past, chronically. 12:35 The patient has been recently seen at the [facility] Emergency cp Department, for similar complaints prescribed antibiotics and prednisone for pneumonia, 3 days ago. 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 jg9 Historical: - Allergies: 11:55 Adhesives; jg9 11:55 Aspirin; jg9 11:55 Bactrim; jg9 11:55 Benadryl; jg9 11:55 Cipro IV; jg9 11:55 Clindamycin; jg9 11:55 coconut oil; jg9 11:55 Detrol; jg9 11:55 Diltiazem; jg9 11:55 Doxycycline; jg9 11:55 FISH PRODUCT DERIVATIVES; jg9 11:55 GABAPENTIN; jg9 11:55 Iodine; jg9 11:55 ivabradine; jg9 11:55 Latex, Natural Rubber; jg9 11:55 Morphine; jg9 11:55 PENICILLINS; jg9 - PMHx: 11:55 Atrial fibrillation; Hypertensive disorder; Asthma; Seizure; Migraine; depression; cva; jg9 dvt; - Immunization history:: Client reports receiving the 2nd dose of the Covid vaccine, not able to get. Flu vaccine is up to date. - Social history:: Smoking status: Patient denies any tobacco usage or history of. ROS: 12:40 Constitutional: Negative for body aches, chills, fever, poor PO intake. cp 12:40 Eyes: Negative for injury, pain, redness, and discharge. cp 12:40 ENT: Negative for drainage from ear(s), ear pain, sore throat. 12:40 Cardiovascular: Positive for chest pain, Negative for edema, palpitations. 12:40 Respiratory: Positive for cough, "sounds productive", shortness of breath, at rest. 12:40 Abdomen/GI: Negative for abdominal pain, vomiting, diarrhea, constipation. 12:40 Back: Negative for radiated pain. 12:40 Neuro: Negative for altered mental status, headache, syncope, weakness. 12:40 All other systems are negative. Exam: 12:05 ECG was reviewed by the Attending Physician. cp 12:45 Constitutional: The patient appears in no acute distress, alert, awake, cp non-diaphoretic, non-toxic, well developed, well nourished, uncomfortable. 12:45 Head/Face: Normocephalic, atraumatic. cp 12:45 Eyes: Periorbital structures: appear normal, Pupils: equal, round, and reactive to light and accomodation, Extraocular movements: intact throughout, Conjunctiva: normal, no exudate, no injection, Sclera: no appreciated abnormality, Lids and lashes: appear normal, bilaterally. 12:45 ENT: External ear(s): are unremarkable, Nose: is normal, Mouth: Lips: moist, Oral mucosa: pink and intact, moist, Posterior pharynx: Airway: no evidence of obstruction, patent, swelling, is not appreciated, erythema, is not appreciated, exudate, is not appreciated. 12:45 Neck: ROM/movement: is normal, is supple, without pain, no range of motions limitations, no nuchal rigidity. 12:45 Chest/axilla: Inspection: normal. 12:45 Cardiovascular: Rate: tachycardic, Rhythm: regular, Edema: is not appreciated, JVD: is not appreciated. 12:45 Respiratory: the patient does not display signs of respiratory distress, Respirations: normal, no use of accessory muscles, no retractions, labored breathing, is not present, Breath sounds: bronchial sounds, that are mild, are heard diffusely, stridor, is not appreciated, wheezing: is not appreciated. 12:45 Abdomen/GI: Inspection: abdomen appears normal, Palpation: abdomen is soft and non-tender, in all quadrants. 12:45 Back: pain, is absent, ROM is normal. 12:45 Neuro: Orientation: to person, place \\T\\ time. Mentation: is normal, Motor: moves all fours, strength is normal, Sensation: is normal. Vital Signs: 11:53 BP 122 / 97; Pulse 100; Resp 20 S; Temp 98.1(O); Pulse Ox 99% ; Weight 59.42 kg (R); jg9 Height 4 ft. 11 in. (149.86 cm); 12:25 BP 117 / 92; Pulse 90; Resp 18; ll1 16:24 BP 129 / 88; Pulse 88; Resp 18; Pulse Ox 94% on 2 lpm NC; ll1 11:53 Body Mass Index 26.46 (59.42 kg, 149.86 cm) jg9 MDM: 12:28 Patient medically screened. cp 17:05 Data reviewed: vital signs, nurses notes, lab test result(s), EKG, radiologic studies, cp plain films. 17:05 Test interpretation: by ED physician or midlevel provider: ECG, plain radiologic cp studies. Special discussion: Based on the patient's history, exam, and Dx evaluation, there is no indication for emergent intervention or inpatient Tx. It is understood by the patient/guardian that if the Sx's persist or worsen they need to return immediately for re-evaluation. ED course: VSS. Patient reports pain markedly improved. Patient appears non-toxic and no signs of respiratory distress. Will discharge to home for continued monitoring. 11/10 12:28 Order name: Basic Metabolic Panel; Complete Time: 15:04 cp 11/10 15:04 Interpretation: Normal except: GLUC 128; GFR 77. cp 11/10 12:28 Order name: CBC with Diff; Complete Time: 15:04 cp 11/10 15:05 Interpretation: Normal except: WBC 9.10; RBC 4.87; HONG% 82.4; LYM% 13.3. cp 11/10 12:28 Order name: LFT's; Complete Time: 15:04 cp 11/10 15:05 Interpretation: Normal except: AST 13; GLOB 4.0; A/G 0.9. cp 11/10 12:28 Order name: Magnesium; Complete Time: 15:04 cp 11/10 12:28 Order name: NT PRO-BNP; Complete Time: 15:04 cp 11/10 12:28 Order name: PT-INR; Complete Time: 15:04 cp 11/10 12:28 Order name: Troponin HS; Complete Time: 15:04 cp 11/10 15:05 Interpretation: Troponin HS 3.80; Reviewed. cp 11/10 12:28 Order name: XRAY Chest (1 view); Complete Time: 15:04 cp 11/10 15:05 Interpretation: Report review. cp 11/10 12:51 Order name: Digoxin cp 11/10 12:52 Order name: Digoxin Level; Complete Time: 15:44 EDMS 11/10 12:03 Order name: EKG - Nurse/Tech; Complete Time: 12:03 jg9 11/10 12:28 Order name: EKG; Complete Time: 12:30 cp 11/10 12:28 Order name: Cardiac monitoring; Complete Time: 12:37 cp 11/10 12:28 Order name: IV Saline Lock; Complete Time: 12:37 cp 11/10 12:28 Order name: Labs collected and sent; Complete Time: 12:37 cp 11/10 12:28 Order name: O2 Per Protocol; Complete Time: 12:37 cp 11/10 12:28 Order name: O2 Sat Monitoring; Complete Time: 12:37 cp EC:05 Rate is 97 beats/min. Rhythm is regular. [place] interval is normal. QRS interval is normal. cp QT interval is normal. Interpreted by me. Reviewed by me. Administered Medications: 13:04 Drug: fentaNYL (PF) 25 mcg {Note: rass 0 pain 9/10.} Route: IVP; Site: right hand; ll1 13:38 Follow up: Response: No adverse reaction ll1 13:37 Drug: fentaNYL (PF) 25 mcg Route: IVP; Site: right hand; ll1 17:18 Follow up: Response: No adverse reaction ll1 16:59 Drug: Albuterol 2.5 mg Route: Inhalation; ll1 17:18 Follow up: Response: No adverse reaction ll1 16:59 Drug: SOLU-Medrol (methylPrednisoLONE) 60 mg Route: IVP; Site: right hand; ll1 17:18 Follow up: Response: No adverse reaction ll1 Disposition Summary: 11/10/21 17:06 Discharge Ordered Location: Home cp Problem: an acute exacerbation cp Symptoms: have improved cp Condition: Stable cp Diagnosis - Unspecified asthma with (acute) exacerbation cp - Chest pain, unspecified cp Followup: cp - With: Private Physician - When: 2 - 3 days - Reason: Recheck today's complaints Discharge Instructions: - Discharge Summary Sheet cp - Asthma, Adult cp - Nonspecific Chest Pain, Adult cp Forms: - Medication Reconciliation Form cp - Thank You Letter cp - Antibiotic Education cp - Prescription Opioid Use cp Prescriptions: - Albuterol Sulfate 2.5 mg /3 mL (0.083 %) Inhalation Solution for Nebulization - inhale 1 unit by NEBULIZATION route every 8 hours As needed; 1 box; Refills: 0, cp Product Selection Permitted Addendum: 11/12/2021 19:16 Co-signature as Attending Physician, Kong Reyes MD I agree with the assessment and k dr plan of care. Signatures: Dispatcher [employer] EDCT Kong Reyes MD MD [facility] Caio Briones PA PA cp Nicho Beckman, RN RN ll1 Leny Conway RN RN jg9 Corrections: (The following items were deleted from the chart) 11/10 11:57 11:55 Allergies: Hydrocodone-Acetaminophen; jg9 jg9 15:05 15:04 Normal except: WBC 9.10; RBC 4.87. cp cp
--- NOTE | 2021-11-10 17:07 | ER ---
Nurse's Notes [facility] Name: Jenni Draper Age: 41 yrs Sex: Female : 1980 Arrival Date: 11/10/2021 Time: 11:40 Bed 16 Private MD: Diagnosis: Unspecified asthma with (acute) exacerbation;Chest pain, unspecified Presentation: 11/10 11:53 Chief complaint: Patient states: I am having chest pain and sob, Hx of a-fib with jg9 pacemaker and CHF, 9/10 pain radiating to left arm. Coronavirus screen: Vaccine status: Patient reports receiving the 2nd dose of the covid vaccine. Ebola Screen: Patient negative for fever greater than or equal to 101.5 degrees Fahrenheit, and additional compatible Ebola Virus Disease symptoms Patient denies exposure to infectious person. Patient denies travel to an Ebola-affected area in the 21 days before illness onset. Initial Sepsis Screen: Does the patient meet any 2 criteria? No. Patient's initial sepsis screen is negative. Does the patient have a suspected source of infection? No. Patient's initial sepsis screen is negative. Risk Assessment: Do you want to hurt yourself or someone else? Patient reports no desire to harm self or others. 11:53 Method Of Arrival: Wheelchair j9 11:53 Acuity: LYUBOV 3 jg9 12:39 Onset of symptoms is unknown. ll1 Triage Assessment: 11:57 General: Appears uncomfortable, Behavior is calm. Pain: Complains of pain in chest Pain jg9 radiates to left hand and left arm. Cardiovascular: Reports chest pain, lightheadedness, shortness of breath. 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 jg9 Historical: - Allergies: 11:55 Adhesives; jg9 11:55 Aspirin; jg9 11:55 Bactrim; jg9 11:55 Benadryl; jg9 11:55 Cipro IV; jg9 11:55 Clindamycin; jg9 11:55 coconut oil; jg9 11:55 Detrol; jg9 11:55 Diltiazem; jg9 11:55 Doxycycline; jg9 11:55 FISH PRODUCT DERIVATIVES; jg9 11:55 GABAPENTIN; jg9 11:55 Iodine; jg9 11:55 ivabradine; jg9 11:55 Latex, Natural Rubber; jg9 11:55 Morphine; jg9 11:55 PENICILLINS; jg9 - PMHx: 11:55 Atrial fibrillation; Hypertensive disorder; Asthma; Seizure; Migraine; depression; cva; jg9 dvt; - Immunization history:: Client reports receiving the 2nd dose of the Covid vaccine, not able to get. Flu vaccine is up to date. - Social history:: Smoking status: Patient denies any tobacco usage or history of. Screenin:57 Abuse screen: Denies threats or abuse. Denies injuries from another. Nutritional jg9 screening: No deficits noted. Tuberculosis screening: No symptoms or risk factors identified. Fall Risk Fall in past 12 months (25 points). Assessment: 12:25 Reassessment: No changes from previously documented assessment. Patient and/or family ll1 updated on plan of care and expected duration. Pain level reassessed. Patient is alert, oriented x 3, equal unlabored respirations, skin warm/dry/pink. 13:25 Reassessment: No changes from previously documented assessment. Patient and/or family ll1 updated on plan of care and expected duration. Pain level reassessed. Patient is alert, oriented x 3, equal unlabored respirations, skin warm/dry/pink. 14:25 Reassessment: No changes from previously documented assessment. Patient and/or family ll1 updated on plan of care and expected duration. Pain level reassessed. Patient is alert, oriented x 3, equal unlabored respirations, skin warm/dry/pink. 15:25 Reassessment: No changes from previously documented assessment. Patient and/or family ll1 updated on plan of care and expected duration. Pain level reassessed. Patient is alert, oriented x 3, equal unlabored respirations, skin warm/dry/pink. 16:25 Reassessment: No changes from previously documented assessment. Patient and/or family ll1 updated on plan of care and expected duration. Pain level reassessed. Patient is alert, oriented x 3, equal unlabored respirations, skin warm/dry/pink. 17:18 Reassessment: No changes from previously documented assessment. Patient and/or family ll1 updated on plan of care and expected duration. Pain level reassessed. Patient is alert, oriented x 3, equal unlabored respirations, skin warm/dry/pink. Patient states feeling better. 17:19 Pain: Pain began 2-3 days ago. ll1 Vital Signs: 11:53 BP 122 / 97; Pulse 100; Resp 20 S; Temp 98.1(O); Pulse Ox 99% ; Weight 59.42 kg (R); jg9 Height 4 ft. 11 in. (149.86 cm); 12:25 BP 117 / 92; Pulse 90; Resp 18; ll1 16:24 BP 129 / 88; Pulse 88; Resp 18; Pulse Ox 94% on 2 lpm NC; ll1 11:53 Body Mass Index 26.46 (59.42 kg, 149.86 cm) jg9 ED Course: 11:40 Patient arrived in ED. mr 11:55 Triage completed. jg9 11:57 Arm band placed on left wrist. jg9 12:25 Nicho Beckman, LAUREL is Primary Nurse. ll1 12:25 Caio Briones PA is PHCP. cp 12:25 Kong Reyes MD is Attending Physician. cp 12:25 Patient placed in an exam room, on a stretcher. ll1 12:25 No provider procedures requiring assistance completed. Patient maintains SpO2 ll1 saturation greater than 95% on room air. 12:26 Patient has correct armband on for positive identification. Bed in low position. Call ll1 light in reach. Side rails up X 1. engine monitor on. Pulse ox on. NIBP on. 13:15 Initial lab(s) drawn, by me, sent to lab. Inserted saline lock: 22 gauge in right hand, kv1 using aseptic technique. 14:02 XRAY Chest (1 view) In Process Unspecified. EDMS 17:19 IV discontinued, intact, bleeding controlled, No redness/swelling at site. Pressure ll1 dressing applied. Administered Medications: 13:04 Drug: fentaNYL (PF) 25 mcg {Note: rass 0 pain 9/10.} Route: IVP; Site: right hand; ll1 13:38 Follow up: Response: No adverse reaction ll1 13:37 Drug: fentaNYL (PF) 25 mcg Route: IVP; Site: right hand; ll1 17:18 Follow up: Response: No adverse reaction ll1 16:59 Drug: Albuterol 2.5 mg Route: Inhalation; ll1 17:18 Follow up: Response: No adverse reaction 1 16:59 Drug: SOLU-Medrol (methylPrednisoLONE) 60 mg Route: IVP; Site: right hand; 1 17:18 Follow up: Response: No adverse reaction 1 Outcome: 17:06 Discharge ordered by . cp 17:19 Discharged to home ambulatory. 1 17:19 Condition: stable 17:19 Discharge instructions given to patient, Instructed on discharge instructions, follow up and referral plans. medication usage, Demonstrated understanding of instructions, follow-up care, medications, Prescriptions given X 1. 17:20 Patient left the ED. [facility] Signatures: Dispatcher [employer] EDID Aureliano Ailyn christy Caio Briones PA PA cp Lewis, Lynsay, RN RN ll1 Leny Conway RN RN jg9 [place] Corrections: (The following items were deleted from the chart) 11:57 11:55 Allergies: Hydrocodone-Acetaminophen; jg9 jg9 12:00 11:53 Acuity: LYUBOV 2 jg9 jg9
[2021-11-10 17:33] VITALS: TEMP 98.1
[2021-11-10 17:36] VITALS: BP 129/88; O2SAT 94
== END 2021-11-10 17:20 | disposition home or self-care (01) ==
LOC: ER 11:38
DX: J45.901 Unspecified asthma with (acute) exacerbation (principal); I10 Essential (primary) hypertension; I48.91 Unspecified atrial fibrillation; Z88.0 Allergy status to penicillin; Z88.1 Allergy status to other antibiotic agents; Z88.3 Allergy status to other anti-infective agents; Z88.5 Allergy status to narcotic agent; Z88.6 Allergy status to analgesic agent; Z88.8 Allergy status to other drugs, medicaments and biological substances; Z91.013 Allergy to seafood; Z91.040 Latex allergy status; Z91.048 Other nonmedicinal substance allergy status
CPT/HCPCS: 93005; 85025; 80048; 36415; 83735; 85610; 80162; 80076; 84484; 83880; 71045; 96375; 96374; 99285; J3010; J2930

== ENCOUNTER 2021-11-26 20:44 | Emergency (ER) | payer OTHER ==
--- OUTSIDE RECORDS SUMMARY | 2021-11-26 20:53 | XMS REPORT | Continuity of Care Document ---
:1980 Author Organization [facility] t Address [address] [place] [address] Care Team Providers Name Role Phone MIMA VELAZQUEZ Primary Care Physician Unavailable ZAKIA VERA Attending Clinician Unavailable Mely, Shauna Attending Clinician Unavailable Malena VEGA Attending Clinician Doctor Unassigned, Name Attending Clinician Unavailable Omari RALPH Attending Clinician Unavailable Antonio LARSEN, [...] Expiration Source Date Date GENERIC MEDICAID HMO [id number] 2011 00:00:00 [employer] HE[employer]CR [id number] 2011 Met amarilys STAR+PLUS [id number]- PresentHMO SOLORIO [id number] [address] [facility] MEDICAIDMEDICAID 00:00:00 - Medica l [id number]/09/[address] 018-Present Problems Condition Condition Condition Status Onset Resolution Last Treating Co mments Source Name Details Category Date Date Treatment Clinician Date Elevated Elevated Disease Active Unive rs d-dimer d-dimer 7- ity of 00:00: [address] Left-sided Left-sided Disease Active [facility] weakness [facility] -[facility] Received Received Disease [facility] - plasminoge plasminoge 00:00: Me dical n n 00 Center activator activator (t-PA) (t-PA) less than less than 24 hours 24 hours prior to prior to arrival arrival Acute Acute Disease Active [facility] ischemic ischemic 5[facility] - stroke stroke 00:[facility]: Medical 00 Center Chest pain Chest pain Disease Active U nivers 4-20 ity of 00:00: [address] Branch Inappropri Inappropri Disease Active 2019- U nivers ate sinus ate sinus 1-04 ity of tachycardi [place]cardi [place] Functional Functional Disease Active 2019- U nivers neurologic neurologic 8-18 it y of al symptom al symptom 00:[place] disorder disorder 00 Medica l with with Branch weakness weakness or or paralysis paralysis Syncope Syncope Disease Active 2020 Univers 2-04 ity of 00:00: [place] 00 Medical Branch PVT PVT Disease Active Univers (paroxysma (paroxysma 2-04 it y of l l 00:00: [place] ventricula ventricula 00 Me dical r r Branch tachycardi tachycardi a) a) Digoxin Digoxin Disease Active Univers toxicity toxicity 2-04 ity of 00:00: [place] 00 Medical Branch Atrial Atrial Disease Active Univers fibrillati fibrillati 2-04 it y of on on 00:00: [place] 00 Medical Branch Dyspnea Dyspnea Disease Active 2018-09 Univers 2- ity of 00:00: [place] 00 Medical Branch Seizure Seizure Disease Active 2018-09 Univers disorder disorder 2- ity of 00:00: [place] 00 Medical Branch Mitral Mitral Disease Active Univers valve valve 8-05 ity of regurgitat regurgitat 00:[place] 00 [facility] Excessive Excessive Disease Active Uni vers anticoagul anticoagul 8-05 it y of ation ation 00:00: [place] 00 Medical Branch Deep vein Deep vein Disease Active Uni vers thrombosis thrombosis 8-05 it y of of lower of lower 00:00: [place] extremity extremity 00 [facility] Branch Anxiety Anxiety Disease Active Univers disorder disorder 8-05 ity of 00:00: [place] 00 Medical Branch Asthma Asthma Disease Active 2019 Univers 8-05 ity of 00:00: [place] 00 Medical Branch E44.0 E44.0 Disease Active Univers Moderate Moderate 5-15 ity of protein [...] Added automatic ally from request for surgery [id number] Abdominal Abdominal Disease Active 2017-09 Overview: Univers pain, pain, 0-19 Formattin ity of unspecifie unspecifie 00:00: g of this [place] d d 00 note Medical abdominal abdominal might be Br anch location location different from the original. Added automatic ally from request for surgery [id number] Nausea and Nausea and Disease Active 2017-09 Overview : Univers vomiting, vomiting, 0-19 Formattin i ty of intractabi intractabi 00:00: g of this [place] lity of lity of 00 note Medical vomiting vomiting might be Bran ch not not different specified, specified, from the unspecifie unspecifie original. d vomiting d vomiting Added type type automatic ally from request for surgery [id number] Non-cardia Non-cardia Disease Active U yossiers c chest c chest 8-03 ity of pain pain 00:00: [place] [facility] Essential Essential Disease Active Uni vers hypertensi hypertensi 8-03 it y of on on 00:00: [place] [facility] Pacemaker Pacemaker Disease Active Uni vers 8-03 ity of 00:00: [place] [facility] PAF PAF Disease Active Univers (paroxysma (paroxysma 8 it y of l atrial l atrial 00:00: [place] fibrillati fibrillati 00 Me dical on) on) Branch History of History of Disease Active 2016-09 U jayden cardiac cardiac 1-29 ity of pacemaker pac[place] situ 00 [facility] Branch Tachycardi Tachycardi Disease Active U yossiers a, a, 9-28 ity of unspecifie unspecifie 00:[place] [facility] Elevated Elevated Disease Active 2013-09 Unive rs liver liver 0-29 ity of enzymes enzymes 00:00: [place] [facility] Pseudoseiz Pseudoseiz Disease Active U jayden ure ure 7-22 ity of 00:00: [place] [facility] Left sided Left sided Disease Active U jayden numbness numbness 6-28 ity of 00:00: [place] 00 Medical Branch Prediabete Prediabete Disease Active 2012-09 U jayden s s 2-31 ity of 00:00: [place] [facility] Loss of Loss of Disease Active 2012-09 Univers weight weight 2-31 ity of 00:00: [place] 00 Medical Branch Hypothyroi Hypothyroi Disease Active 2012-09 Overview : Univers dism dism Formattin ity of 00:00: g of this 00 note Medical might be Branch different from the original. 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 ICD10 Diagnosis Term Food Supervisor Utility Cerebrovas Cerebrovas Disease Resolve 2021-02-12 2021-02-12 [...] [place] reaction 00 Medical s Branch Penicill DA Active SV 2020-0 [facility] ins [...] hoxazole 1-04 [place] 00:[facility]: d 00 [facility] trimetho [...] diphenhy DA Active SV 2020-0 [facility] dramine -04 [place] 00:00: d 00 [...] 1-04 [place] 00:00: d 00 [facility] latex DA Active SV 2020-0 [facility] 1-04 [place] 00:[facility]: d 00 [facility] ivabradi DA Active MO 2020-0 [facility] ne 1-04 [place] 00:00: d 00 [facility] coconut FA Active MO 2020-0 [facility] 1-04 [place] 00:00: d 00 [facility] Penicill DA Active SV ANAPHYLAXIS 2020-0 [facility] ins SHOCH 1-04 [place] 00:00: d 00 [facility] Center Sulfa DA Active MO RASH 2020-0 [facility] (Sulfona 1-04 [place] mide 00:00: d Antibiot 00 Medical ics) Center Fish FA Active SV ANAPHYLAXIS 2020-0 [facility] Containi SHOCK -04 [place] ng 00:00: d Products 00 Medical Center iodine DA Active MO RASH 1-0 [facility] 1-04 [place] 00:00: d 00 [facility] morphine DA Active SV ANAPHYLAXIS 2020-0 [facility] SHOCK 1-04 [place] 00:00: d 00 [facility] Center aspirin DA Active SV ANAPHYLAXIS 2021-0 [facility] SHOCK 1-04 [place] 00:00: d 00 [facility] Center cephalex DA Active SV HIVES 2020-0 [facility] in 1-04 [place] 00:00: d 00 [facility] Center cefixime DA Active MO HIVES 2020-0 [facility] 1-04 [place] 00:00: d 00 Medical Center doxycycl DA Active SV RASH 2020-0 [facility] ine 1-04 [place] 00:00: d 00 [facility] clindamy DA Active MO RASH 2020-0 [facility] stephan 1-04 [place] 00:00: d 00 [facility] Center sulfamet DA Active MO RASH 2020-0 [facility] hoxazole 1-04 [place] 00:00: d 00 [facility] Center trimetho DA Active MO RASH 2020-0 [facility] prim 1-04 [place] 00:00: d 00 [facility] ciproflo DA Active SV HIVES 0 [facility] xacin 1-04 [place] 00:00: d 00 [facility] adhesive DA Active SV BLISTERS 2020- [facility] tape 1-04 [place] 00:00: d 00 [facility] Center tramadol DA Active SV HIVES 2020-0 [facility] 1-04 [place] 00:00: d 00 [facility] gabapent DA Active SV RASH 2020-0 [facility] in 1-04 [place] 00:00: d 00 [facility] Center diltiaze DA Active SV SHORTNESS OF 2020-0 HC A m BREATH -04 [place] 00:00: d 00 [facility] diphenhy DA Active SV RASH 2020-0 [facility] dramine -04 [place] 00:00: d 00 [facility] Center topirama DA Active SV HIVES/MEMORY 2020-0 HC A te LOSS -04 [place] 00:00: d 00 [facility] Center levoflox DA Active SV HIVES 2020-0 [facility] acin 1-04 [place] 00:00: d 00 [facility] Center quetiapi DA Active MO RASH 2020-0 [facility] ne 1-04 [place] 00:00: d 00 [facility] Center tolterod DA Active MO RASH 2020-0 [facility] ine 1-04 [place] 00:00: d 00 [facility] Center latex DA Active SV BLISTERS 2020-0 [facility] 1-04 [place] 00:00: d 00 Medical Center ivabradi DA Active MO RASH 2020-0 [facility] ne 1-04 [place] 00:00: d 00 Medical Center coconut FA Active MO RASH 2021-0 [facility] 1-04 [place] 00:00: d 00 [facility] Center Topirama [...] taking Branch one dose of that medicine Diltiaze Propensi Active Shortness Of Methodi m ty to Breath 9-05 st adverse 00:00: Hospita reaction 00 l s to drug Diltiaze Propensi Active Shortness of 2018- Univers m ty to Breath 9-05 ity of adverse 00:00: [place] reaction 00 Medical s Branch Cephalex Propensi Active Anaphylaxis 2018-0 M ethodi in ty to 8-05 st adverse 00:00: Hospita reaction 00 l s to drug Cefixime Propensi Active Rash Univer s ty to 8-05 ity of adverse 00:00: [place] reaction 00 Medical s Branch Doxycycl Propensi Active Rash Univer s ine ty to 8-05 ity of adverse 00:00: [place] reaction 00 Medical s Branch Fish Propensi Active Anaphylaxis Family Uni vers Containi ty to 8-05 history ity of ng adverse 00:00: of [place] Products reaction 00 allergic Medi blane s reaction. Branch Doxycycl Propensi Active Rash Method i ine ty to 8-05 st adverse 00:00: Hospita reaction 00 l s to drug Levoflox Propensi Active Anaphylaxis 2019-0 M ethodi acin ty to 8-05 st adverse 00:00: Hospita reaction 00 l s to drug CEFIXIME Allergy Active Low Rash 2017-09 [facility] 10-17 00:00: 00 TRAMADOL Allergy Active Low Rash 2017-09 [facility] 10-17 00:00: 00 SULFAMET Allergy Active High Anaphylaxis 2017-09 [facility] HOXAZOLE 10-17 -TRIMETH 00:00: OPRIM 00 GABAPENT Allergy Active High Sob 2017-09 [facility] IN 10-17 00:00: 00 IODINE Allergy Active High Rash 2017-09 [facility] AND 10-17 IODIDE 00:00: CONTAINI 00 NG PRODUCTS MORPHINE Allergy Active High Anaphylaxis 2017-09 [facility] 10-17 00:00: 00 PENICILL Allergy Active High Anaphylaxis 2017-09 [facility] INS 10-17 00:00: 00 DIPHENHY Allergy Active [...] adverse 00:00: Medical reaction 00 Center s Tolterod Propensi Active [...] adverse 00:00: Medical reaction 00 Center s QUETIAPI Allergy Active 2017-09 [facility] NE [...] 00:00: [place] reaction 00 Medical s Branch Coconut Propensi Active Rash 2017-09 Methodi ty to 10-04 st adverse 00:00: Hospita reaction 00 l s to drug Coconut Propensi Active Rash 2017-09 Methodi Oil ty to 10-04 adverse 00:00: Hospita reaction 00 l s to drug Other Propensi Active Swelling 2018- Family Method i ty to 10-[address] adverse 00:00: of Hospita reaction 00 allergic l s reaction. Diphenhy Propensi Active Hives 2017-0 Univer s dramine ty to 4-12 ity of Hcl adverse 00:00: [place] reaction 00 Medical s Branch Clindamy Propensi Active Rash 2017-0 Univer s stephan ty to 4-12 ity of adverse 00:00: [place] reaction 00 Medical s Branch Gabapent Propensi Active Rash 2018- Univer s in ty to 4-12 ity of adverse 00:00: [place] reaction 00 Medical s Branch Iodine Propensi Active Rash 2017- Univers ty to 4-12 ity of adverse 00:00: [place] reaction 00 Medical s Branch Clindamy Propensi Active Rash 2017- Method i stephan ty to 412 st adverse 00:00: Hospita reaction 00 l [...] 00:00: [place] reaction 00 Medical s Branch Morphine Propensi Active Anaphylaxis 2017- M ethodi ty to 005 st adverse 00:00: Hospita reaction 00 l s to drug Tramadol Propensi Active Unknown - Rash Uni vers ty to See comments 06-22 ity of adverse 00:00: [place] reaction 00 Medical s Branch Tramadol Propensi Active Rash Rash Rash Met hodi ty to 06-22 st adverse 00:00: Hospita reaction 00 l s to drug Ciproflo Propensi Active Other - See Muscle U nivers xacin ty to comments 04-20 aches ity of adverse 00:00: [place] reaction 00 Medical s Branch Quetiapi Propensi Active Rash 2016-0 Univer s ne ty to 04-20 ity of Fumarate adverse 00:00: [place] reaction 00 Medical s Branch Quetiapi Propensi Active Rash confusion Met hodi ne ty to 04-20 st adverse 00:00: Hospita reaction 00 l s to drug Aluminum Propensi Active Anaphylaxis 2015-0 U nivers Aspirin ty to 01-18 ity of adverse 00:00: [place] reaction Medical s Branch Penicill Propensi Active Anaphylaxis 0 U nivers in ty to 01-18 ity of adverse 00:00: [place] reaction 00 Medical s Branch Adhesive Drug Active Rash Univers Allergy 03-20 ity of 00:00: [place] 00 Medical Branch Ciproflo Propensi Active Other (See Muscle Me thodi xacin ty to Comments) 02-[address] adverse 00:00: [facility] a reaction 00 Muscle l s to aches drug Aspirin Propensi Active Anaphylaxis Un [place] ty to 08 ity of adverse 00:00: [place] reaction 00 Medical s to Branch drug Adhesive Propensi Active Rash 2012-09 Can [...] reaction 00 Medica l ics) s Branch Adhesive Propensi Active Rash 2012-09 Can [...] 2012-09 Method i ine ty to 10-20 adverse 00:00: Hospita reaction 00 l s to drug Social History Social Habit Start Date Stop Date Quantity Comments Source History SDPR [facility] Dr[facility] al History SDPR [facility] Exposure to Not sure University of SARS-CoV-2 (event) [facility] Alcohol intake 2021-10-22 2021-10-22 Current University of 00:00:00 00:00:00 non-drinker of [facility] alcohol Branch (finding) Education 2021-03-25 2021-03-25 12 University of 00:00:00 00:00:00 [place] [facility] History SDOH 2019-10-29 2019-10-29 5 University o f Financial 00:00:00 00:00:00 [facility] Branch History SDPR Food 2019-10-29 2019-10-29 1 Univers ity of Worry 00:00:00 00:00:00 [facility] Branch History SDPR Food 2019-10-29 2019-10-29 1 Univers ity of Scarcity 00:00:00 00:00:00 [place] [facility] History SDPR 2019-10-29 2019-10-29 2 University o f Transport Med 00:00:00 00:00:00 [place] [facility] Branch History SDOH 2019-10-29 2019-10-29 2 University o f Transport Non-Med 00:00:00 00:00:00 [facility] edical Branch History SDOH 2018-09-05 2018-09-05 1 [facility] Alcohol Frequency 00:00:00 00:00:00 Hospita l Cigarettes smoked 2018-04-27 2018-04-27 Univers ity of current (pack per 00:00:00 00:00:00 [facility] edical ) - Reported Branch Cigarette 2018-04-27 2018-04-27 University of pack-years 00:00:00 00:00:00 [facility] Tobacco use and 2018-04-27 2018-04-27 Never used Universit y of exposure 00:00:00 00:00:00 [facility] Tobacco Comment 2018-04-27 2018-04-27 quit 16 years Univer sity of 00:00:00 00:00:00 ago [facility] History of tobacco 2003-05-09 Smoker Univer sity of use 00:00:00 [facility] Sex Ass[birth year] Universit y of 00:00:00 00:00:00 [facility] Smoking Status Start Date Stop Date Source Former smoker 2018-04-27 00:00:00 2018-04-27 00:00:00 Universi ty [facility] Medications Ordered Filled Start Stop Current Ordering Indication Dosage Frequency Signature Comments Components Source Medication Medication Date Date Medication? Clinician (SIG) Name Name BENZONATATE Yes [id number] TAKE 1 Univers 100 mg 3-04 CAPSULE BY ity of capsule 00:00: MOUTH [place] 00 THREE Medical TIMES Branch DAILY NEEDED FOR COUGH montelukast 2021- No [id number] 10mg Take 1 Univers 10 mg 2-22 02-22 tablet by ity of tablet 00:00: 00:00 mouth [place] 00 :00 daily. Medical Branch montelukast 2021- No [id number] 10mg Take 1 Univers 10 mg 2-18 02-22 tablet by ity of tablet 00:00: 00:00 mouth [place] 00 :00 daily. Medical Branch ALPRAZolam Yes [id number] .25mg Take 0.25 Univers (XANAX) 2-11 mg by ity of 0.25 mg 11:24: mouth at [place] tablet 16 bedtime as Medical needed. Branch pregabalin Yes 50mg Take 50 mg U nivers (LYRICA) 50 2-11 by mouth ity of mg capsule 11:24: at [place] 16 bedtime. Medical Branch esomeprazol Yes 20mg Take 20 mg Univers e (NEXIUM) 2-11 by mouth 2 ity of 20 mg 11:24: (two) [place] capsule 16 times Medical daily Branch before breakfast and dinner. ALPRAZolam Yes [id number] .25mg Take 0.25 Univers (XANAX) 2-11 mg by ity of 0.25 mg 11:24: mouth at [place] tablet 16 bedtime as Medical needed. Branch pregabalin 2021-0 Yes 50mg Take 50 mg U nivers (LYRICA) 50 2-11 by mouth ity of mg capsule 11:24: at [place] 16 bedtime. Medical Branch esomeprazol 2021-0 Yes 20mg Take 20 mg Univers e (NEXIUM) 2-11 by mouth 2 ity of 20 mg 11:24: (two) [place] capsule 16 times Medical daily Branch before breakfast and dinner. ALPRAZolam 2021-0 Yes [id number] .25mg Take 0.25 Univers (XANAX) 2-11 mg by ity of 0.25 mg 11:24: mouth at [place] tablet 16 bedtime as Medical needed. Branch pregabalin 2021-0 Yes 50mg Take 50 mg U nivers (LYRICA) 50 2-11 by mouth ity of mg capsule 11:24: at [place] 16 bedtime. Medical Branch esomeprazol 2021-0 Yes 20mg Take 20 mg Univers e (NEXIUM) 2-11 by mouth 2 ity of 20 mg 11:24: (two) [place] capsule 16 times Medical daily Branch before breakfast and dinner. ALPRAZolam 2021-0 Yes [id number] .25mg Take 0.25 Univers (XANAX) 2-11 mg by ity of 0.25 mg 11:24: mouth at [place] tablet 16 bedtime as Medical needed. Branch pregabalin 0 Yes 50mg Take 50 mg U nivers (LYRICA) 50 2-11 by mouth ity of mg capsule 11:24: at [place] 16 bedtime. Medical Branch esomeprazol 0 Yes 20mg Take 20 mg Univers e (NEXIUM) 2-11 by mouth 2 ity of 20 mg 11:24: (two) [place] capsule 16 times Medical daily Branch before breakfast and dinner. azithromyci 2021-0 Yes [id number] 250mg Take 1 Univers n 250 mg 2-08 tablet by ity of tablet 00:00: mouth [place] 00 daily. Medical Branch azithromyci 2021-0 Yes [id number] 250mg Take 1 Univers n 250 mg 2-08 tablet by ity of tablet 00:00: mouth [place] 00 daily. Medical Branch azithromyci 2021-0 Yes [id number] 250mg Take 1 Univers n 250 mg 2-08 tablet by ity of tablet 00:00: mouth [place] 00 daily. Medical Branch chlorphenir 2021-0 Yes [id number] 4mg Take 1 Univers amine 4 mg 1-05 tablet by ity of tablet 00:00: mouth [place] 00 every 6 Medical (six) Branch hours as needed for Allergies or Runny nose. calcium/mag 2021-0 Yes [id number] 1{each} Take 1 Univers nesium/zinc 1-05 Each by ity o f (CALCIUM-MA 00:00: mouth [place] GNESUIUM-ZI 00 daily. Medica l NC) Branch 333-133-5 mg Tab benzonatate 2021-0 Yes [id number] 100mg Take 1 Univers 100 mg 1-05 capsule by ity of capsule 00:00: mouth 3 [place] 00 (three) Medical times Branch daily as needed for Cough. chlorphenir 2021-0 Yes [id number] 4mg Take 1 Univers amine 4 mg 1-05 tablet by ity of tablet 00:00: mouth [place] 00 every 6 Medical (six) Branch hours as needed for Allergies or Runny nose. calcium/mag 2021-0 Yes [id number] 1{each} Take 1 Univers nesium/zinc 1-05 Each by ity o f (CALCIUM-MA 00:00: mouth [place] GNESUIUM-ZI 00 daily. Medica l NC) Branch 333-133-5 mg Tab benzonatate 2021-0 Yes [id number] 100mg Take 1 Univers 100 mg 1-05 capsule by ity of capsule 00:00: mouth 3 [place] 00 (three) Medical times Branch daily as needed for Cough. chlorphenir 2021-0 Yes [id number] 4mg Take 1 Univers amine 4 mg 1-05 tablet by ity of tablet 00:00: mouth [place] 00 every 6 Medical (six) Branch hours as needed for Allergies or Runny nose. calcium/mag 2021-0 Yes [id number] 1{each} Take 1 Univers nesium/zinc 1-05 Each by ity o f (CALCIUM-MA 00:00: mouth [place] GNESUIUM-ZI 00 daily. Medica l NC) Branch 333-133-5 mg Tab benzonatate 2022-0 Yes [id number] 100mg Take 1 Univers 100 mg 1-05 capsule by ity of capsule 00:00: mouth 3 [place] 00 (three) Medical times Branch daily as needed for Cough. digoxin 2020-09 Yes 125ug Take 1 Univers [...] 00 daily. Medical Branch albuterol 2020-09 Yes [id number] 1.25mg Inhale 1.5 Univers 2.5 mg /3 1-11 mL every 4 ity of mL (0.083 00:00: (four) [place] %) 00 hours. Medical nebulizer Branch solution albuterol 2020-09 Yes [id number] 1.25mg Inhale 1.5 Univers 2.5 mg /3 1-11 mL every 4 ity of mL (0.083 00:00: (four) [place] %) 00 hours. Medical nebulizer Branch solution albuterol 2020-09 Yes [id number] 1.25mg Inhale 1.5 Univers 2.5 mg /3 1-11 mL every 4 ity of mL (0.083 00:00: (four) [place] %) 00 hours. Medical nebulizer Branch solution albuterol 2020-09 Yes [id number] 1.25mg Inhale 1.5 Univers 2.5 mg /3 1-11 mL every 4 ity of mL (0.083 00:00: (four) [place] %) 00 hours. Medical nebulizer Branch solution albuterol 2020-09 Yes [id number] 2{puff} Inhale 2 Univers 90 1-05 Puffs ity of mcg/actuati 00:00: every 6 [place] as on inhaler 00 (six) Medical hours as Branch needed for Wheezing or Shortness of Breath. albuterol 2020-09 Yes [id number] 2{puff} Inhale 2 Univers 90 1-05 Puffs ity of mcg/actuati 00:00: every 6 [place] as on inhaler 00 (six) Medical hours as Branch needed for Wheezing or Shortness of Breath. albuterol 2020-09 Yes [id number] 2{puff} Inhale 2 Univers 90 1-05 Puffs ity of mcg/actuati 00:00: every 6 [place] on inhaler 00 (six) Medical hours as Branch needed for Wheezing or Shortness of Breath. albuterol 2020-09 Yes [id number] 2{puff} Inhale 2 Univers 90 1-05 Puffs ity of mcg/actuati 00:00: every 6 [place] as on inhaler 00 (six) Medical hours as Branch needed for Wheezing or Shortness of Breath. carvediloL 2020-09 Yes 25mg Take 1 Unive rs 25 mg 0-27 tablet by ity of tablet 00:00: mouth 2 [place] (two) Medical times Branch daily with meals. carvediloL 2020-09 Yes 25mg Take 1 Unive rs 25 mg 0-27 tablet by ity of tablet 00:00: mouth 2 [place] (two) Medical times Branch daily with meals. carvediloL 2020-09 Yes 25mg Take 1 Unive rs 25 mg 0-27 tablet by ity of tablet 00:00: mouth 2 [place] (two) Medical times Branch daily with meals. carvediloL 2020-09 Yes 25mg Take 1 Unive rs 25 mg 0-27 tablet by ity of tablet 00:00: mouth 2 [place] (two) Medical times Branch daily with meals. ubrogepant 2020-09 Yes [id number] 100mg Take 100 Univers (UBRELVY) 0-19 mg by ity of 100 mg Tab 00:00: mouth as [place] as 00 needed Medical (migraine) Branch . Take at onset of migraine, repeat x1 in 2h if headache remains ubrogepant 2020-09 Yes [id number] 100mg Take 100 Univers (UBRELVY) 0-19 mg by ity of 100 mg Tab 00:00: mouth as [place] 00 needed Medical (migraine) Branch . Take at onset of migraine, repeat x1 in 2h if headache remains ubrogepant 2020-09 Yes [id number] 100mg Take 100 Univers (UBRELVY) 0-19 mg by ity of 100 mg Tab 00:00: mouth as [place] as 00 needed Medical (migraine) Branch . Take at onset of migraine, repeat x1 in 2h if headache remains ubrogepant 2020-09 Yes [id number] 100mg Take 100 Univers (UBRELVY) 0-19 mg by ity of 100 mg Tab 00:00: mouth as [place] 00 needed Medical (migraine) Branch . Take at onset of migraine, repeat x1 in 2h if headache remains nitroglycer 2020-[id number] 1 Univers in 0.4 mg 0-10 tablet ity of sublingual 00:00: under the [place] tablet 00 tongue Medical every 5 Branch (five) minutes as needed for Chest pain. nitroglycer 2020-[id number] 1 Univers in 0.4 mg 0-10 tablet ity of sublingual 00:00: under the [place] tablet 00 tongue Medical every 5 Branch (five) minutes as needed for Chest pain. nitroglycer 2020-[id number] 1 Univers in 0.4 mg 0-10 tablet ity of sublingual 00:00: under the [place] tablet 00 tongue Medical every 5 Branch (five) minutes as needed for Chest pain. nitroglycer 2020-[id number] 1 Univers in 0.4 mg 0-10 tablet ity of sublingual 00:00: [place] the [place] tablet 00 tongue Medical every 5 Branch (five) minutes as needed for Chest pain. VRAYLAR 3 Yes 1{capsu Take 1 Uni vers mg Cap 8-25 le} capsule by ity of 00:00: mouth at [place] [address] bedtime. Medical Branch VRAYLAR 3 Yes 1{capsu Take 1 Uni vers mg Cap 8-25 le} capsule by ity of 00:00: mouth at [place] [address] bedtime. Medical Branch VRAYLAR 3 Yes 1{capsu Take 1 Uni vers mg Cap 8-25 le} capsule by ity of 00:00: mouth at [place] [address] bedtime. Medical Branch VRAYLAR 3 Yes 1{capsu Take 1 Uni vers mg Cap 8-25 le} capsule by ity of 00:00: mouth at [place] [address] bedtime. Medical Branch albuterol Yes [id number] 2.5mg Inhale 3 Univers 2.5 mg /3 8-05 mL every 6 ity of mL (0.083 00:00: (six) [place] %) 00 hours as Medical nebulizer needed for Bran ch solution Wheezing or Shortness of Breath. albuterol Yes [id number] 2.5mg Inhale 3 Univers 2.5 mg /3 8-05 mL every 6 ity of mL (0.083 00:00: (six) [place] %) 00 hours as Medical nebulizer needed for Bran ch solution Wheezing or Shortness of Breath. albuterol 2021-0 Yes [id number] 2.5mg Inhale 3 Univers 2.5 mg /3 8-05 mL every 6 ity of mL (0.083 00:00: (six) [place] %) 00 hours as Medical nebulizer needed for Bran ch solution Wheezing or Shortness of Breath. albuterol 202-0 Yes [id number] 2.5mg Inhale 3 Univers 2.5 mg /3 8-05 mL every 6 ity of mL (0.083 00:00: (six) [place] %) 00 hours as Medical nebulizer needed for Bran ch solution Wheezing or Shortness of Breath. apixaban 202-0 Yes 5mg Take 1 Univers (ELIQUIS) 5 [...] Branch daily. Indication s: Recurrent DVT fluticasone 2020-0 Yes 100ug QD 2 sprays M ethodi propionate 6-25 ([address] (FLONASE) 00:00: total) by Hos elenita 50 00 Each Nare l mcg/actuati route on nasal daily. spray fexofenadin 2020-0 2020- No 180mg QD Take 1 Me thodi e (SUDHAKAR) 6-25 07-[address] 180 MG 00:00: 04:59 (180 mg Hospita tablet 00 :00 total) by l mouth daily for 30 days. fluticasone 2020-0 2020- No QD Inhale 1 M ethodi [...] capsule 44 nightly. 2 l capsules cholecalcif Yes 2000U QD Take 2,000 Methodi florentino, [...] day. l ophthalmic emulsion albuterol Yes 1{ampul Q.[id number] Take 1 Methodi (ACCUNEB) 6-24 e} [id number] ampule by st 1.25 mg/3 22:52: 3D nebulizati Ho spita mL 44 on 3 l nebulizer (three) solution times a day. esomeprazol 2020- No 20mg QD Take 20 mg Methodi e (NexIUM) 6-18 03-[address] 20 MG 20:19: 00:00 daily Hospita capsule 48 :00 before l breakfast. ARIPiprazol 2020- No 5mg QD Take 5 mg Methodi e (ABILIFY) -18 03-[address] 5 MG tablet 01:39: [...] for up to 3 days. tiotropium Yes [id number] 1{puff} Inhale 1 Univers bromide 6-02 Puff ity of (SPIRIVA 00:00: daily. [place] RESPIMAT) 00 Medical 2.5 Branch mcg/actuati on Mist fluticasone Yes [id number] 1{puff} Inhale 1 Univers furoate-natan 6-02 Puff ity of anteroL 00:00: daily. [address]) Branch 200-25 mcg/dose DsDv tiotropium Yes [id number] 1{puff} Inhale 1 Univers bromide 6-02 Puff ity of (SPIRIVA 00:00: daily. [place] RESPIMAT) Medical 2.5 Branch mcg/actuati on Mist fluticasone Yes [id number] 1{puff} Inhale 1 Univers furoate-natan 6-02 Puff ity of anteroL 00:00: daily. [address]) Branch 200-25 mcg/dose DsDv tiotropium Yes [id number] 1{puff} Inhale 1 Univers bromide 6-02 Puff ity of (SPIRIVA 00:00: daily. [place] [facility] Medical 2.5 Branch mcg/actuati on Mist fluticasone Yes [id number] 1{puff} Inhale 1 Univers furoate-natan 6-02 Puff ity of anteroL 00:00: daily. [place] ([address]) Branch 200-25 mcg/dose DsDv tiotropium Yes [id number] 1{puff} Inhale 1 Univers bromide 6-02 Puff ity of (SPIRIVA 00:00: daily. [place] RESPIMAT) Medical 2.5 Branch mcg/actuati on Mist fluticasone Yes [id number] 1{puff} Inhale 1 Univers furoate-natan 6-02 Puff ity of anteroL 00:00: daily. [place] ([address]) Branch 200-25 mcg/dose DsDv ALPRAZolam Yes [...] MG 14:04: mouth Medical tablet 46 daily. [place] venlafaxine Yes 150mg QD Take [address] (EFFEXOR-XR 5-21 [facility] ) 150 MG 24 14:04: mouth Medic al hr capsule 46 daily. [place] apixaban Yes 5mg QD Take 5 mg [...] 2mg Take [address] [facility] [address] (COGENTIN) -10 02-19 by mouth 3 Jeanie kes - 2 [...] [facility] (ABILIFY) 02-10-19 by mouth Breta es - 10 MG 22:17: 00:00 daily. Medical disintegrat 48 :00 Center ing tablet benzonatate Yes [id number] 100mg Take 1 Univers (TESSALON 2-11 capsule by itnessa of PERLGADIEL) 100 00:00: mouth 3 Bas[place] as mg capsule 00 (three) Medica l times Branch daily as needed for Cough. benzonatate Yes [id number] 100mg Take 1 Univers (TESSALON 2-11 capsule by itnessa of PERLGADIEL) 100 00:00: mouth 3 [place] as mg capsule 00 (three) Medica l times Branch daily as needed for Cough. benzonatate Yes [id number] 100mg Take 1 Univers (TESSALON 2-11 capsule by ity of PERLES) 100 00:00: mouth 3 [place] as mg capsule 00 (three) Medica l times Branch daily as needed for Cough. benzonatate 2021- No [id number] 100mg Take 1 Univers (TESSALON 2-11 03-04 capsule by itnessa of PERLGADIEL) 100 00:00: 00:00 mouth 3 [place] mg capsule 00 :00 (three) Medica l times Branch daily as needed for Cough. levETIRAcet 2018- Yes [id number] 1000mg Take 2 Univers am 500 mg 7-29 tablets by ity of tablet 00:00: mouth 2 [place] (two) Medical times Branch daily. levETIRAcet 2018- Yes [id number] 1000mg Take 2 Univers am 500 mg 7-29 tablets by ity of tablet 00:00: mouth 2 [place] (two) Medical times Branch daily. levETIRAcet 2018- Yes [id number] 1000mg Take 2 Univers am 500 mg 7-29 tablets by ity of tablet 00:00: mouth 2 [place] (two) Medical times Branch daily. levETIRAcet 2018- Yes [id number] 1000mg Take 2 Univers am 500 mg 7-29 tablets by ity of tablet 00:00: mouth 2 [place] (two) Medical times Branch daily. blood sugar 2017-09 Yes [id number] Use as Univers diagnostic 0-24 directed. ity of (TRUETEST 00:00: [place] TEST 00 Check once Medical STRIPS) daily Branch strip lancets 2017-09 Yes [id number] Use as Uni vers (TRUEPLUS 0-24 directed. ity o f LANCETS) 33 00:00: R 73.03, [place] gauge Misc 00 Check once Med ical daily Branch blood sugar 2017-09 Yes [id number] Use as Univers diagnostic 0-24 directed. ity of (TRUETEST 00:00: [place] TEST 00 Check once Medical STRIPS) daily Branch strip lancets 2017-09 Yes [id number] Use as Uni vers (TRUEPLUS 0-24 directed. ity o f LANCETS) 33 00:00: R 73.03, [place] gauge Misc 00 Check once Med ical daily Branch blood sugar 2017-09 Yes [id number] Use as Univers diagnostic 0-24 directed. ity of (TRUETEST 00:00: [place] TEST 00 Check once Medical STRIPS) daily Branch strip lancets 2017-09 Yes [id number] Use as Uni vers (TRUEPLUS 0-24 directed. ity o f LANCETS) 33 00:00: R 73.03, [place] gauge Misc 00 Check once Med ical daily Branch blood sugar 2017-09 Yes [id number] Use as Univers diagnostic 0-24 directed. ity of (TRUETEST 00:00: [place] TEST 00 Check once Medical STRIPS) daily Branch strip lancets 2017-09 Yes [id number] Use as Uni vers (TRUEPLUS 0-24 directed. ity o f LANCETS) 33 00:00: R 73.03, [place] gauge Misc 00 Check once Med ical daily Branch busPIRone Yes TK 1 T PO Uni vers 15 mg 9-22 BID ity of tablet 00:00: Medical Branch venlafaxine Yes 150mg 150 mg at Univers XR 150 mg 06-16 bedtime. ity of 24 hr 00:00: [place] capsule Medical Branch busPIRone Yes TK 1 T PO Uni vers 15 mg 9-22 BID ity of tablet 00:00: Medical Branch venlafaxine Yes 150mg 150 mg at Univers XR 150 mg 06-16 bedtime. ity of 24 hr 00:00: [place] capsule Medical Branch busPIRone Yes TK 1 T PO Uni vers 15 mg 9-22 BID ity of tablet 00:00: Medical Branch venlafaxine Yes 150mg 150 mg at Univers XR 150 mg 06-16 bedtime. ity of 24 hr 00:00: [place] capsule Medical Branch busPIRone Yes TK 1 T PO Uni vers 15 mg 9-22 BID ity of tablet 00:00: Medical Branch venlafaxine Yes 150mg 150 mg at Univers XR 150 mg 06-16 bedtime. ity of 24 hr 00:00: [place] capsule Medical Branch loratadine Yes as needed. U nivers (CLARITIN) 9-11 ity of 10 mg 00:00: [place] tablet 00 Medical Branch loratadine Yes as needed. U nivers (CLARITIN) 9-11 ity of 10 mg 00:00: [place] tablet Medical Branch loratadine Yes as needed. U nivers (CLARITIN) 9-11 ity of 10 mg 00:00: [place] tablet Medical Branch loratadine Yes as needed. U nivers (CLARITIN) 9-11 ity of 10 mg 00:00: [place] tablet [address] [place] [address] Branch Immunizations Ordered Filled Immunization Date Status Comments [facility] e Immunization Name Name SARS-COV-2 COVID-19 2021-02-08 Completed Unive rsity of MODERNA VACCINE 00:00:00 [facility] SARS-COV-2 COVID-19 2021-02-08 Completed Unive rsity of MODERNA VACCINE 00:00:00 [facility] SARS-COV-2 COVID-19 2021-02-08 Completed Unive rsity of MODERNA VACCINE 00:00:00 [facility] SARS-COV-2 COVID-19 2021-02-08 Completed Unive rsity of MODERNA VACCINE 00:00:00 [facility] SARS-COV-2 COVID-19 2021-01-11 Completed Unive rsity of MODERNA VACCINE 00:00:00 [facility] SARS-COV-2 COVID-19 2021-01-11 Completed Unive rsity of MODERNA VACCINE 00:00:00 [facility] SARS-COV-2 COVID-19 2021-01-11 Completed Unive rsity of MODERNA VACCINE 00:00:00 [facility] SARS-COV-2 COVID-19 2021-01-11 Completed Unive rsity of MODERNA VACCINE 00:00:00 [facility] Influenza Virus 2020-08-13 Completed Universit y of Vaccine 00:00:00 [facility] Influenza Virus 2020-08-13 Completed Universit y of Vaccine 00:00:00 [facility] Influenza Virus 2020-08-13 Completed Universit y of Vaccine 00:00:00 [facility] Influenza Virus 2020-08-13 Completed Universit y of Vaccine 00:00:00 [facility] Pneumococcal 2017-06-23 Completed University o f Polysaccharide, 00:00:00 [facility] PPSV23 (PNEUMOVAX) Branch Pneumococcal 2017-06-23 Completed University o f Polysaccharide, 00:00:00 [facility] ical PPSV23 (PNEUMOVAX) Branch Pneumococcal 2017-06-23 Completed University o f Polysaccharide, 00:00:00 [facility] PPSV23 (PNEUMOVAX) Branch Pneumococcal 2017-06-23 Completed University o f Polysaccharide, 00:00:00 [place] Med ical PPSV23 (PNEUMOVAX) Branch Influenza High Dose 2015-11-16 Completed Unive rsity of 00:00:00 [facility] Pneumococcal 2015-11-16 Completed University o f Polysaccharide, 00:00:00 [place] Med ical PPSV23 (PNEUMOVAX) Branch Influenza High Dose 2015-11-16 Completed Unive rsity of 00:00:00 [facility] Pneumococcal 2015-11-16 Completed University o f Polysaccharide, 00:00:00 [place] Med ical PPSV23 (PNEUMOVAX) Branch Influenza High Dose 2015-11-16 Completed Unive rsity of 00:00:00 [facility] Pneumococcal 2015-11-16 Completed University o f Polysaccharide, 00:00:00 [place] Med ical PPSV23 (PNEUMOVAX) Branch Influenza High Dose 2015-11-16 Completed Unive rsity of 00:00:00 [facility] Pneumococcal 2015-11-16 Completed University o f Polysaccharide, 00:00:00 [place] Med ical PPSV23 (PNEUMOVAX) Branch Vital Signs Vital Name Observation Time Observation Value Comments Source HEIGHT 2021-02-10 21:00:00 149.9 cm WEIGHT 2021-02-10 21:00:00 59.467 kg HEIGHT 2021-02-10 21:00:00 149.9 cm WEIGHT 2021-02-10 21:00:00 59.467 kg Oxygen saturation in 2021-03-18 20:00:00 97 /min [facility] Arterial blood by Pulse oximetry Systolic blood 2021-03-18 17:24:48 132 mm[Hg] [facility] pressure Diastolic blood 2021-03-18 17:24:48 72 mm[Hg] [facility] pressure Heart rate 2021-03-18 17:24:48 96 /min [facility] [place] Body temperature 2021-03-18 17:24:48 37 Ayaka [facility] [place] Respiratory rate 2021-03-18 17:24:48 14 /min [facility] [place] Body height 2021-03-18 01:37:[address] [facility] [place] Body weight 2021-03-18 00:09:[address] [facility] [place] BMI 2021-03-18 00:09:00 26.26 kg/m2 [facility] [place] Systolic blood 2021-02-12 12:00:00 101 mm[Hg] [facility] Diastolic blood 2021-02-12 12:00:00 72 mm[Hg] [facility] Heart rate 2021-02-12 12:00:00 93 /min [facility] Respiratory rate 2021-02-12 12:00:00 18 /min [facility] Oxygen saturation in 2021-02-12 12:00:00 96 /min [facility] - Arterial blood by Medical Ce nter Pulse oximetry Body temperature 2021-02-12 11:00:00 37.56 Ayaka [facility] Body height 2021-02-11 10:15:00 149.9 cm [facility] Body weight 2021-02-11 10:15:00 59.5 kg [facility] BMI 2021-02-11 10:15:00 26.48 kg/m2 [facility] Procedures Procedure Date / Time Performing Clinician Source Performed DME/SUPPLY JUSTIFICATION 2021-09-08 06:01:00 [facility]SE 2021-03-18 17:31:00 Cliff Berkowitz spital ECG 12-LEAD 2021-03-18 17:28:01 [facility] TROPONIN 2021-03-18 16:41:00 [facility] TTE COMPLETE, WO 2021-03-18 14:19:12 [facility] CONTRAST, W DOPPLER ([id number]) POC GLUCOSE 2021-03-18 13:14:00 [facility] HC COMPLETE BLD COUNT 2021-03-18 10:00:00 [facility] W/AUTO DIFF COMPREHENSIVE METABOLIC 2021-03-18 10:00:00 [facility] PANEL MAGNESIUM LEVEL 2021-03-18 10:00:00 [facility] PHOSPHORUS LEVEL 2021-03-18 10:00:00 [facility] LIPID PANEL 2021-03-18 10:00:00 [facility] HEMOGLOBIN A1C 2021-03-18 10:00:00 [facility] ESTIMATED GFR 2021-03-18 10:00:00 [facility] URINE CULTURE 2021-03-18 06:12:00 [facility] LEGIONELLA URINARY 2021-03-18 05:36:00 Lae, [facility] [place] [facility] ANTIGEN STREPTOCOCCUS PNEUMONIAE 2021-03-18 05:36:00 [facility], [facility] URINARY ANTIGEN URINALYSIS SCREEN AND 2021-03-18 05:36:00 Lae, [facility] MICROSCOPY, WITH REFLEX TO CULTURE BLOOD CULTURE, AEROBIC & 2021-03-18 04:35:00 Lae, [facility] ANAEROBIC BLOOD CULTURE, AEROBIC & 2021-03-18 04:25:00 Lae, [facility] ANAEROBIC DIGOXIN LEVEL 2021-03-18 04:24:00 [facility], [facility] TROPONIN 2021-03-18 04:24:00 [facility] LACTIC ACID LEVEL, SEPSIS 2021-03-18 04:24:00 [facility], [facility] - NOW AND REPEAT 2X EVERY 3 HOURS POC GLUCOSE 2021-03-18 01:38:00 [facility] ARTERIAL BLOOD GAS 2021-03-18 01:10:00 [facility], [facility] [place] [facility] US DUPLEX VENOUS LOWER 2021-03-18 01:00:06 [facility], [facility] EXTREMITY BILATERAL LACTIC ACID LEVEL, SEPSIS 2021-03-17 23:47:00 Lae, [facility] - NOW AND REPEAT 2X EVERY 3 HOURS TROPONIN 2021-03-17 23:47:00 [facility], [facility] XR CHEST 1 VW PORTABLE 2021-03-17 21:20:18 [facility] COMPLETE BLD COUNT 2021-03-17 21:05[facility]00 [facility] W/AUTO DIFF LACTIC ACID LEVEL, SEPSIS 2021-03-17 21:05:00 [facility] - NOW AND REPEAT 2X EVERY 3 HOURS COMPREHENSIVE METABOLIC 2021-03-17 21:05:00 [facility] Hector Ochoa [facility] PANEL TROPONIN 2021-03-17 21:05:00 [facility] B NATRIURETIC PEPTIDE 2021-03-17 21:05:00 [facility] D-DIMER 2021-03-17 21:05:00 [facility] ESTIMATED GFR 2021-03-17 21:05:00 [facility] ECG ED PRELIMINARY 2021-03-17 20:36:46 [facility] INTERPRETATION ECG 12-LEAD 2021-03-17 20:19:38 [facility] BASIC METABOLIC PANEL (7) 2021-02-12 05:34:00 Johan [facility] MAGNESIUM 2021-02-12 05:34:00 [facility] PHOSPHORUS 2021-02-12 05:34:00 [facility] W/PLT COUNT & AUTO 2021-02-12 04:48:00 Alison Prado [facility] MR BRAIN WITHOUT IV 2021-02-11 16:08:00 Naina [facility] MRA HEAD WITHOUT IV 2021-02-11 16:07:00 Naina [facility] MRA NECK WITHOUT IV 2021-02-11 16:07:00 Naina [facility] RAPID DRUG SCREEN, URINE 2021-02-11 03:05:00 Johan [facility] URINALYSIS WITH 2021-02-11 03:05:00 Johan [facility] MICROSCOPIC IF INDICATED [facility] URINALYSIS MICROSCOPIC 2021-02-11 03:05:00 Alison Prado [facility] HOMOCYSTEINE 2021-02-11 02:46:00 Joh[facility] RPR 2021-02-11 02:46:00 [facility] TSH/FREE T4 IF INDICATED 2021-02-11 02:46:00 [facility] VITAMIN B12 AND FOLATE 2021-02-11 02:46:00 Johan [facility] CBC W/PLT COUNT & AUTO 2021-02-11 02:46:00 Autumn Pradoutha [facility] BASIC METABOLIC PANEL (7) 2021-02-11 02:46:00 Johan [facility] MAGNESIUM 2021-02-11 02:46:00 [facility] PHOSPHORUS 2021-02-11 02:46:00 [facility] C-REACTIVE PROTEIN 2021-02-11 02:46:00 Johan [facility] DIGOXIN LEVEL 2021-02-11 02:46:00 Johan [facility] XR CHEST 1 VIEW PORTABLE 2021-02-10 22:20:00 [facility] BEDSIDE [facility] POCT-GLUCOSE METER 2021-02-10 21:28:00 Wilmer Vera [facility] LIPID PANEL 2021-02-10 21:22:00 [facility] CREATINE KINASE (CK) 2021-02-10 21:21:00 [facility] HEMOGLOBIN A1C 2021-02-10 21:21:00 [facility] CBC W/PLT COUNT & AUTO 2021-02-10 21:21:00 Johan Alison [facility] COMPREHENSIVE METABOLIC 2021-02-10 21:21:[address] [facility] PROTHROMBIN TIME/INR 2021-02-10 21:21:00 [facility] APTT 2021-02-10 21:21:00 [facility] MAGNESIUM 2021-02-10 21:21:00 [facility] PHOSPHORUS 2021-02-10 21:21:00 [facility] HIGH SENSITIVITY TROPONIN 2021-02-10 21:21:00 [facility] I [facility] B-TYPE NATRIURETIC FACTOR 2021-02-10 21:21:00 [facility] (BNP) [facility] LACTIC ACID, VENOUS 2021-02-10 21:21:00 [facility] ARRYTHMIA IMPLANT REPORT 2021-02-10 00:00:00 Provider, Mino [facility] - - SCAN Scanning [facility] Plan of Care Planned Activity Planned Date Details Comments Source Future Scheduled 2021-05-[address] [facility] - Test 00:00:00 (#1) [code = [facility] INFLUENZA VACCINE (#1)] Future Scheduled 2020-09-[address] [facility] - Test 00:00:00 (12+) [code = [facility] DEPRESSION SCREENING (12+)] Future Scheduled [address] [facility] - Test 00:00:00 malignant neoplasm Medical C enter of cervix (procedure) [code = 023173539] Future Scheduled 2000 DTAP/TDAP/TD [facility] - Test 00:00:00 VACCINES (1 - Tdap) [facility] [code = DTAP/TDAP/TD VACCINES (1 - Tdap)] Future Scheduled [address] [facility] - Test 00:00:00 SCREENING [code = Medical nter HEPATITIS C SCREENING] Future Scheduled Screening for [facility] Test malignant neoplasm of cervix (procedure) [code = 106193966] Future Scheduled [facility]FLUENZA [facility]ACCINE [facility] [code = INFLUENZA VACCINE] Encounters Start End Encounter Admission Attending Care Care Encounter Source Date/Time Date/Time Type Type Clinicians Facility Department ID 2021-02-10 Inpatient ER BERSHAD, [facility] Neurology [id number] [facility] 20:21:00 WILMER 2020-09-29 Inpatient Mely, [facility] [id number] [facility] 10:15:00 Linus Damon105 [facility] 2020-09-28 Inpatient EL Mely, [facility] [id number] [facility] 12:00:00 Linus [id number] [facility] 2021-11-15 2021-11-15 Telephone NAKUL Guy [id number] Univers 00:00:00 00:00:00 Shiwan [place] [id number] i ty [place] [id number] Ms dic[address] 2021-11-12 2021-11-12 Telephone Malena [facility] [id number] Univers 00:00:00 00:00:00 Shiwan [place] [id number] [place] [id number] Ms dic[address] 2021-11-06 2021-11-06 Refill Malena WYLENARD [id number] Univers 00:00:00 00:00:00 Shiwan [place] 350.1.13.10 i [place] [id number] [address] 2021-09-08 2021-09-08 Orders Doctor NURYS [id number] Univers 00:00:00 00:00:00 Only Unassigned, [place] 350.1.13.10 ity of [place] [facility] 4.2.7.2.686 Basilio as [id number] [address] 2021-05-12 2021-05-12 Orders Doctor NURYS 1.2.840.114 [id number] 00:00:00 00:00:00 Only Unassigned, [place] 350.1.13.10 [place] [facility] 4.2.7.2.686 [id number] [facility] 2021-04-29 2021-04-29 Office Malena [facility] 1.2.840.114 [id number] 12:33:16 13:56:43 Visit Shijaviern [place] 350.1.13.10 [place] 4.2.7.2.686 [facility] [id number] [facility] 0[facility] Building 2021-04-28 2021-04-28 Orders Malena [facility] [id number] [id number] 00:00:00 00:00:00 Only [facility] 350.1.13.10 [facility] 4.2.7.2.686 [id number] 2021-03-19 2021-03-19 Patient Omari, 1.2.840.1 [id number] Methodi 00:00:00 00:00:00 Outreach Ann [id number] 3.430.2.7 Hospit a .3.802302 l .8 2021-03-17 2021-03-18 Emergency Hector AlvraezMariia 1.2.840.1 [id number] Methodi 14:59:00 17:52:00 Veda Bolanos [address]77.1.[address] [place] 3.430.2.7 Hospita .3.584095 l .8 2021-03-17 2021-03-17 Travel 1.2.840.1 [id number] [id number] Methodi 00:00:00 00:00:[address] 3.430.2.7 0.2.7.3.698 spita .3.611264 084.8 l .8 2017-09-06 2017-09-08 [id number] 10:12:00 02:32:00 [facility] Results Test Description Test Time Test Comments Results Result Comments Source ECG 12 lead 2021-03-19 14:56:41 Test Item Value Reference Range Interpretation Comme nts Ventricular rate (test code = 253) Atrial rate (test code = 255) [place] interval (test code = 266) QRSD interval [...] 15:19,-No significant change was found- [facility] [id number] 12:41:23 Test Item Value Reference Range Interpretation Comments Urine culture isolate Mixed alok <=10-3 (test code = 40460-8) col/cc [facility] Complete, (w Contrast, Strain and 3D if needed)2021-03-18 23:04:52 Test Item Value Reference Range Interpretation Comments Ao Root Diameter (test code = 2.73 cm 8688679301) AoV Area, Vmax (test code = 2.24 cm2 7597438666) AoV Area, VTI (test code = 2.25 cm2 1149923721) AoV Mean PG (test code = mmHg 8873947369) AoV Peak PG (test code = mmHg 1224418820) AoV Vmax (test code = 0203220451) 1.46 m/s AoV VTI (test code = 8130771855) 0.28 m IVS,d (test code = 5186526904) 0.72 cm IVS/LVPW,2D (test code = 0092066653) Left Atrium Dimension Anterior 2.68 cm (test code = 1994144292) LV,d (test code = 9706366760) 3.69 cm LV EF,2D (test code = 2957039438) 79.68 % LV,s (test code = 0828601314) 2.17 cm LVOT area (test code = 5463789178) 2.75 cm2 LVOT Diam,S (test code = 1.87 cm 1443765609) LVOT Vmax (test code = 3822778234) 1.18 m/s LVOT VTI (test code = 4386973998) 0.23 m LVPWD,d (test code = 0721576000) 0.65 cm PV Pk Grad (test code = 5468314745) mmHg PV VMAX (test code = 2116076621) 0.84 m/s RVOT Vmax (test code = 9266716855) 0.85 m/s RVSP (TR) (test code = 2351049905) mmHg TR Vpeak (test code = 3163709809) 2.86 mm/s MV E A ratio (test code = 4397094371) RA pressure (test code = mmHg 5322699430) TR pk grad (test code = 1974643929) mmHg MR Vmax (test code = 7975628997) 5.49 m/s E wave decelartion time (test code msec = 8490682649) MV Peak A Alf (test code = 0.76 m/s 4752035355) MV valve area p 1/2 method (test 3.26 cm2 code = 0680438334) MV Peak E Alf (test code = 0.92 m/s 1174774711) MV stenosis pressure 1/2 time (test 67.54 ms code = 6887408505) LVOT stroke volume (test code = 0.63 cm3 6843628336) AV LVOT peak gradient (test code = mmHg 2082314537) RVSP (test code = 3458744528) mmHg Ao Root Diameter (test code = 2.73 cm 4477504136) MV mean gradient (test code = mmHg 5121413050) LV SYS VOL (test code = 8297387261) 15.61 ml LV MARTINS VOL (test code = 57.63 ml 5757480452) LA area s A4C (test code = 11.16 cm2 9878447369) LV SV Teich 2D (test code = 42.02 ml 6809367818) LV Vol s Teich PSAX (test code = 15.61 ml 0466862678) MR peak grad (test code = mmHg 8967386371) MV Vmax (test code = 4711910935) 1.21 m MV VTI Tips (test code = 0.24 m 1661022560) RVOT pk grad (test code = mmHg 3546679469) AoV Vmn (test code = 4829881854) LV FS Teich 2D (test code = 1926465708) MV AE ratio (test code = 9991888091) LV FS Cube 2D (test code = 2138860488) LVOT Vmn (test code = 1966350151) Aov area Vmn (test code = 2.13 cm2 3136202522) LVOT mean grad (test code = mmHg 6786014137) MAX Pred HR (test code = 0978716143) 85 of MPHR (test code = 7239693521) Calc MPHR (test code = 2324884188) bpm LV SV Cube 2D (test code = 39.93 ml 5959722593) LV vol d cube 2D (test code = 50.11 ml 5899990747) LV vol s cube 2D (test code = 10.18 ml 2462557233) MV Decel slope (test code = 3.97 m/s2 6625699102) Pred Exer Dur R1 (test code = 4235751325) Pred METS R1 (test code = 3866222553) LA Vol MOD A4C (test code = 24.20 ml 1443202045) Velocity Ratio (V1/V2) (test code = 0.81 m/s 4689) EF (test code = 7821837759) 72.91 % E/A ratio (test code = 7547766993) LVOT VTI (CM) (test code = 23.00 cm 9315428378) SOMMER (test code = SOMMER) [facility] [id number] 17:32:37 Test Item Value Reference Range Interpretation Comments POC glucose (test code = 11964-2) 207 mg/dL 65-99 H Lab Interpretation (test code = Abnormal 74929-3) [facility] duplex venous lower [id number] 01:17:37 EXAMINATION: US DUPLEX VENOUS LOWER EXTREMITY [...] is no evidence of deep venous thrombosis. [facility]-[id number] Interface, Radiology Results Incoming - 03/17/2021 8:20 [...] There is no evidence of deep venous thrombosis.[facility]-[id number] HospitalXR Chest 1 Vw [id number] 21:32:52EXAMINATION: XR CHEST 1 VW PORTABLE CLINICAL HISTORY: 40 years Female SOB COMPARISON: None. IMPRESSION: Lines, tubes, and devices: Right-sided transvenous cardiac pacemaker. Heart and mediastinum: Cardiomediastinal silhouette is normal. Lungs and pleura: There is no focal airspace disease, pleuraleffusion or pneumothorax. Bones/soft tissues: No acute osseous abnormality. [facility]-[id number] Dictatedand approved by radiology receptionist/fellow: Cristhian Calixto M.D. I, Jan Scott MD, personally reviewed the images and resident's/fellow's findings and agree with the final report.[facility] Results 03/17/2021 4:35 PM CDTFormatting of this note might be different from theoriginal.EXAMINATION: XR CHEST 1 VW PORTABLECLINICAL HISTORY: 40 years Female SOBCOMPARISON: None.IMPRESSION:Lines, tubes, and devices: Right-sided transvenous cardiac pacemaker.Heart and mediastinum: Cardiomediastinal silhouette is normal.Lungs and pleura: There is no focal airspace disease, pleural effusion or pneumothorax.Bones/soft tissues: No acute osseous abnormality.[facility]-[id number] and approved by radiology receptionist/fellow: Aleksandra Sanchez, Jan Scott MD, personally rev iewed the images and resident's/fellow's findings and agree with the final report.[facility] WorthARRYTHMIA IMPLANT REPORT - [id number] 20:45:31 Ordered by an unspecified provider.[facility] CenterECG ED Preliminary Interpretation - Not an [id number] 20:36:46 Test Item Value Reference Range Interpretation Comments SOMMER (test code = SOMMER) Lab Interpretation (test code = Abnormal 35754-3) [facility] Metabolic [id number] 07:01:00 Test Item Value Reference Range Interpretation Comments Sodium (test code = 137 meq/L 972-419 4301-2) Potassium (test code = 4.3 meq/L 3.5-5.1 2823-3) Chloride (test code = 104 meq/L 98-107 2075-0) CO2 (test code = 24 meq/L 22-29 2028-9) BUN (test code = 15 mg/dL 7-21 3094-0) Creatinine (test code 0.81 mg/dL 0.57-1.25 = 2160-0) Glucose (test code = 108 mg/dL 70-105 H 2345-7) Calcium (test code = 9.2 mg/dL 8.4-10.2 12393-3) EGFR (test code = 79 mL/min/1.73 sq m [place] [address]-3) NOT ACCURATE CREATININE CLEARANCE IN PREDICTING GLOMERULAR FILTRATION RATE . ESTIMATED GFR I S NOT APPLICABLE FOR DIALYSIS PATIENTS. SOMMER (test code = SOMMER) [employer] - PIAYA L Lab Interpretation Abnormal (test code = 01830-6) [facility] CenterMagnesium2021-05-21 07:01:00 Test Item Value Reference Range Interpretation Comments Magnesium (test code = 2.5 mg/dL 1.6-2.6 96490-2) SOMMER (test code = SOMMER) [employer] ID - PIAYA L Lab Interpretation (test Normal code = 73809-1) [facility] CenterPhosphorus2021-05-21 07:01:00 Test Item Value Reference Range Interpretation Comments Phosphorus (test code = 4.3 mg/dL 2.3-4.7 2777-1) SOMMER (test code = SOMMER) [employer] ID - PIAYA L Lab Interpretation (test Normal code = 09940-3) [facility] CenterBASI METABOLIC [id number] 07:01:00 Test Item Value Reference Range Interpretation [...] S NOT APPLICABLE FOR DIALYSIS PATIEN TS. [employer] ID - SHAMIKADEANN [id number] 07:01:00 Test Item Value Reference Range Interpretation Comments MAGNESIUM (BEAKER) (test code = 2.5 mg/dL 1.6-2.6 627) [employer] ID - SHAMIKADEANN SZUXFTZEZKV7135-03-20 07:01:00 Test Item Value Reference Range Interpretation Comments PHOSPHORUS (BEAKER) (test code = 4.3 mg/dL 2.3-4.7 604) [employer] ID - SHAMIKADEANN LCBC with platelet count + automated [id number] 05:37:00 Test Item Value Reference Range Interpretation Comments WBC (test code = 6690-2) 6.8 See_Comment [A utomated message] The system [employer] generated this result transmitted ref erence range: 3.5 - 10 .5 K/L. The refe rence range was not u sed to interpret this result as normal/abnor mal. RBC (test code = 789-8) 5.14 See_Comment [Au tomated message] The system [employer] generated this result transmitted ref erence range: 3.93 - 5 .22 M/L. The refe rence range was not u sed to interpret this result as normal/abnor mal. MCHC (test code = 786-4) 31.6 See_Comment L [A utomated message] The system [employer] generated this result transmitted ref erence range: [...] [Aut omated message] 777-3) The system [employer] generated this result transmitted ref erence range: 150 - 45 0 K/CU MM. The referen ce range was not u sed to interpret this result as normal/abnor mal. MPV (test code = 10.0 fL 9.4-12.3 16060-0) nRBC (test code = 413) 0 See_Comment [Aut omated message] The system [employer] generated this result transmitted ref erence range: [...] [Aut omated message] 670) The system [employer] generated this result transmitted ref erence range: 1.56 - 6 .13 K/L. The refe rence range was not u sed to interpret this result as normal/abnor mal. # Lymphs (test code = 2.10 See_Comment [Auto mated message] 414) The system [employer] generated this result transmitted ref erence range: 1.18 - 3 .74 K/L. The refe rence range was not u sed to interpret this result as normal/abnor mal. # Monos (test code = 0.48 See_Comment H [Autom ated message] 415) The system [employer] generated this result transmitted ref erence range: 0.24 - 0 .36 K/L. The refe rence range was not u sed to interpret this result as normal/abnor mal. # Eos (test code = 416) 0.26 See_Comment [Au tomated message] The system [employer] generated this result transmitted ref erence range: 0.04 - 0 .36 K/L. The refe rence range was not u sed to interpret this result as normal/abnor mal. # Baso (test code = 417) 0.04 See_Comment [A utomated message] The system [employer] generated this result transmitted ref erence range: 0.01 - 0 .08 K/L. The refe rence range was not u sed to interpret this result as normal/abnor mal. Immature 1 % 0-1 Granulocytes-Relative (test code = 2801) Lab Interpretation (test Abnormal code = 26352-3) [facility] W/PLT COUNT & AUTO [id number] 05:37:00 Test Item Value Reference Range Interpretation [...] code = 2801) MR, MRA, BRAIN, WITHOUT [id number] 16:54:00Reason for exam:->Ischemic Stroke EvaluationS[facility] : 1980 Sex: FFINAL REPORT MR, BRAIN, WITHOUT CONTRAST, MR, MRA, BRAIN, WITHOUT CONTRAST, MR, MRA, NECK, WITHOUT IV CONTRAST INDICATION: Stroke, follow upIschemic Stroke Evaluation TECHNIQUE: Multiplanar, multisequence MR imaging of the brain without intravenous contrast.MRA of the head utilizing 3-D yufk-jl-oeiitw technique, with 3-D reconstructions.MRA of the neck utilizing 2-D and 3-D nmsj-du-dxdfrb technique, with 3-D reconstructions. COMPARISON: MRI and [...] within the head and neck. Signed: [facility] Verified Date/Time: 02/11/2021 16:54:16 MR, MRA, NECK, WITHOUT IV [id number] 16:54:00Reason for exam:->Ischemic Stroke Evaluation [facility] : 1980 Sex: FFINAL REPORT MR, BRAIN, WITHOUT CONTRAST, MR, MRA, BRAIN, WITHOUT CONTRAST, MR, MRA, NECK, WITHOUT IV CONTRAST INDICATION: Stroke, follow upIschemic Stroke Evaluation TECHNIQUE: Multiplanar, multisequence MR imaging of the brain without intravenous contrast.MRA of the head utilizing 3-D bwpg-zw-nmbzxi technique, with 3-D reconstructions.MRA of the neck utilizing 2-D and 3-D zhzn-mp-uunhmm technique, with 3-D reconstructions. COMPARISON: MRI and [...] the head and neck. Signed: Lakshmi Amador [facility] Verified Date/Time: 02/11/2021 16:54:16 MR, BRAIN, WITHOUT [id number] 16:54:00Reason for exam:->Ischemic Stroke Evaluation [facility] : 1980 Sex: FFINAL REPORT MR, BRAIN, WITHOUT CONTRAST, MR, MRA, BRAIN, WITHOUT CONTRAST, MR, MRA, NECK, WITHOUT IV CONTRAST INDICATION: Stroke, follow upIschemic Stroke Evaluation TECHNIQUE: Multiplanar, multisequence MR imaging of the brain without intravenous contrast.MRA of the head utilizing 3-D irtl-mj-nburcs technique, with 3-D reconstructions.MRA of the neck utilizing 2-D and 3-D aqvw-ai-wqhofm technique, with 3-D reconstructions. COMPARISON: MRI and [...] Date/Time: 02/11/2021 16:54:16 MR brain without IV [id number] 16:54:00Interface, External Ris In - 02/11/2021 4:56 PM CDTFINAL REPORT MR, BRAIN, WITHOUT CONTRAST, MR, MRA, BRAIN, WITHOUT CONTRAST, MR, MRA, NECK, WITHOUT IV CONTRAST INDICATION: Stroke, follow upIschemic Stroke Evaluation TECHNIQUE: Multiplanar, multisequence MR imaging of the brain without intravenous contrast.MRA of the head utilizing 3-D cwht-ys-fpstfb technique, with 3-D reconstructions.MRA of the neck utilizing 2-D and 3-D yfam-ab-ywlfji technique, with 3-D reconstructions. COMPARISON: MRI and [...] within the head and neck. Signed: Lakshmi Amdaor Verified Date/Time: 02/11/2021 16:54:16 [facility] [id number] 16:54:00Interface, External Ris In - 02/11/2021 4:56 PM CDTFINAL REPORT MR, BRAIN, WITHOUT CONTRAST, MR, MRA, BRAIN, WITHOUT CONTRAST, MR, MRA, NECK, WITHOUT IV CONTRAST INDICATION: Stroke, follow upIschemic Stroke Evaluation TECHNIQUE: Multiplanar, multisequence MR imaging of the brain without intravenous contrast.MRA of the head utilizing 3-D hrmp-ti-utjval technique, with 3-D reconstructions.MRA of the neck utilizing 2-D and 3-D wwxa-zm-helpzh technique, with 3-D reconstructions. COMPARISON: MRI and [...] Signed: Lakshmi Amador Verified Date/Time: 02/11/2021 16:54:16 [facility] without IV [id number] 16:54:00Interface, External Ris In - 02/11/2021 4:56 PM CDTFINAL REPORT MR, BRAIN, WITHOUT CONTRAST, MR, MRA, BRAIN, WITHOUT CONTRAST, MR, MRA, NECK, WITHOUT IV CONTRAST INDICATION: Stroke, follow upIschemic Stroke Evaluation TECHNIQUE: Multiplanar, multisequence MR imaging of the brain without intravenous contrast.MRA of the head utilizing 3-D slss-us-meetvd technique, with 3-D reconstructions.MRA of the neck utilizing 2-D and 3-D sxbg-py-kgnken technique, with 3-D reconstructions. COMPARISON: MRI and [...] Signed: Lakshmi Amadorort Verified Date/Time: 02/11/2021 16:54:16 [facility] CenterRPR2021-[facility] 14:02:00 Test Item Value Reference Range Interpretation Comments RPR (test code = 57987-6) Nonreactive Nonreactive Lab Interpretation (test code = Normal 00116-4) [facility] CenterRPR2021-05-20 14:02:00 Test Item Value Reference Range Interpretation Comments RPR SCREEN (BEAKER) (test code = Nonreactive Nonreactive 420) Hemoglobin [id number] 09:35:00 Test Item Value Reference Range Interpretation Comments Hemoglobin A1C (test code = 4548-4) 6.0 % 4.3-6.1 Lab Interpretation (test code = Normal 40504-4) [facility] CenterHEMOGLOBIN [id number] 09:35:00 Test Item Value Reference Range Interpretation Comments HEMOGLOBIN A1C (BEAKER) (test code = 6.0 % 4.3-6.1 368) Rapid drug screen, [id number] 07:26:00 Test Item Value Reference Range Interpretation Comments Barbiturate Screen Negative Negative (test code = 99536-0) Benzodiazepine Screen Negative Negative (test code = 08245-5) Cocaine (Metab.) Negative Negative Screen (test code = 3397-7) Methadone Screen (test Negative Negative code = 89056-6) Opiate Screen (test Negative Negative code = 42091-7) Cannabinoid Screen Negative Negative (test code = 99354-1) Amph/Methamph Screen Negative Negative (test code = 89213-0) Phencyclidine Screen Negative Negative (test code = 98727-8) pH, UA (test code = 6.5 5.0-8.0 5803-2) SOMMER (test code = SOMMER) DRUG CUTOFF CONC.Cocaine 300 ng/mL Cannabinoid 50 ng/mLBenzodiazepine 200 ng/mLBarbiturate 200 ng/mLPhencyclidine 25 ng/mLOpiate 300 ng/mLMethadone 300 ng/mLAmphetamine/ 1000 ng/mL Methamphetamine This assay provides an unconfirmed qualitative test result for the clinical management of patients in emergency situations. Chain of custody not maintained. Some tsjd-cbq-xohannv medications, as well as adulterants, may cause inaccurate results. Clinical correlation should be applied. A more comprehensive drug screen or confirmation of a detected drug may be performed upon request.[employer] ID - VIET M Lab Interpretation Normal (test code = 99456-5) [facility] CenterRAPID DRUG SCREEN, [id number] 07:26:00 Test Item Value Reference Range Interpretation [...] situations. Chain of custody not maintained. Some twap-zsg-tldlbro medications, as well as adulterants, may cause inaccurate results. Clinical correlation should be applied. A more comprehensivedrug screen or confirmation of a detected drug may be performed upon request.[employer] ID - VIET MUrinalysis with Microscopic If [id number] 07:11:00 Test Item Value Reference Range Interpretation Comments Color, UA (test code = Light Yellow 5778-6) Clarity, UA (test code = Clear 5767-9) Specific Colver, UA (test 1.012 1.001-1.035 code = 5811-5) pH, UA (test code = 6.5 5.0-8.0 5803-2) Protein, UA (test code = Negative Negative 67555-0) Glucose, UA (test code = Negative Negative 365) Ketones, UA (test code = Negative Negative 2514-8) Bilirubin, UA (test code = Negative Negative 81698-3) Blood, UA (test code = Small Negative A 78929-9) Nitrite, UA (test code = Negative Negative 5802-4) Leukocytes, UA (test code Small Negative A = 5799-2) Urobilinogen, UA (test 0.2 mg/dL 0.2-1 code = 96007-0) Specimen Source (test code = 2795) SOMMER (test code = SOMMER) [employer] ID - [auto][employer] - tech Lab Interpretation (test Abnormal code = 26986-7) [facility] CenterUrinalysis Microscopic [id number] 07:11:00 Test Item Value Reference Range Interpretation Comments RBC, UA (test 11 See_Comment [Automated me ssage] code = 93244-6) The system [facility] generated this result transmitted ref [...] UA (test code = The system w [facility] 52486-4) generated this result transmitted ref erence range: /HPF. Th e reference range was not used to int erpret this result as normal/abnormal . SOMMER (test code [employer] ID - tech = SOMMER) [facility] CenterURINALYSIS WITH MICROSCOPIC IF [id number] 07:11:00 Test Item Value Reference Range Interpretation [...] = 463) SOURCE(BEAKER) (test code = 2795) [employer] ID - [auto][employer] ID - techURINALYSIS [id number] 07:11:00 Test Item Value Reference Range Interpretation Comments RBC UA (BEAKER) (test code = 519) 11 /HPF WBC UA (BEAKER) (test code = 520) 11 /HPF MUCUS (BEAKER) (test code = 1574) Rare SQUAMOUS EPITHELIAL (BEAKER) (test 3 /HPF code = 516) [employer] ID - techDigoxin [id number] 06:22:00 Test Item Value Reference Range Interpretation Comments Digoxin Lvl (test code = <0.30 0.8-2 L 62605-2) SOMMER (test code = SOMMER) [employer] ID - MACHELLE L Lab Interpretation (test Abnormal code = 51907-8) [facility] CenterDIGOXIN [id number] 06:22:00 Test Item Value Reference Range Interpretation Comments DIGOXIN LEVEL (BEAKER) (test code = < ng/mL 0.80-2.00 L 669) [employer] ID - MACHELLE ORtcnpwkisfdt0625-97-82 05:58:00 Test Item Value Reference Range Interpretation Comments Homocysteine (test code = 7.3 umol/L 5.1-15.4 44042-5) SOMMER (test code = SOMMER) [employer] ID - MACHELLE L Lab Interpretation (test Normal code = 54701-9) [facility] CenterTSH/Free T4 If Nsjiyjmrk1642-94-42 05:58:00 Test Item Value Reference Range Interpretation Comments TSH (test code = 4.368 See_Comment [Automated 84338-6) message] The system which generated this result transmit aida reference range : 0.350 - 4.940 uIU/mL. The reference range was not used to interpret this result as normal/abnormal . SOMMER (test code = SOMMER) [employer] ID - MACHELLE L Lab Interpretation Normal (test code = 69874-1) [facility] CenterVitamin B12 and [id number] 05:58:00 Test Item Value Reference Range Interpretation Comments Vitamin B12 (test 557 pg/mL 213-816 code = 2132-9) Folate (test code = 11.20 ng/mL See_Comment [Automa aida 2284-8) message] The system which generated this result transmit aida reference range : >=7.00. The reference range was not used to interpret this result as normal/abnormal . SOMMER (test code = SOMMER) [employer] ID - MACHELLE L Lab Interpretation Normal (test code = 96263-8) [facility] CenterHOMOCYSTEINE2021-05-20 05:58:00 Test Item Value Reference Range Interpretation Comments HOMOCYSTEINE (BEAKER) (test code = 7.3 umol/L 5.1-15.4 642) [employer] ID - SHAMIKADEANN LTSH/FREE T4 IF [id number] 05:58:00 Test Item Value Reference Range Interpretation Comments THYROID STIMULATING HORMONE 4.368 uIU/mL 0.350-4.940 (BEAKER) (test code = 772) [employer] ID Jodie CARTY LVITAMIN B12 AND [id number] 05:58:00 Test Item Value Reference Range Interpretation Comments VITAMIN B12 557 pg/mL 213-816 (BEAKER) (test code = 774) FOLATE (BEAKER) 11.20 ng/mL See_Comment [Automated message] (test code = 362) The system which generated this result transmitted ref erence range: >=7.00. The reference range was not used to interpr et this result as normal/abnormal . [employer] ID Jodie CARTY LC-Reactive [id number] 04:54:00 Test Item Value Reference Range Interpretation Comments CRP (test code = 676) 0.81 mg/dL 0-0.5 H SOMMER (test code = SOMMER) [employer] ID Jodie CARTY L Lab Interpretation (test Abnormal code = 50311-5) [facility] CenterMAGNESIUM2021-05-20 04:54:00 Test Item Value Reference Range Interpretation Comments MAGNESIUM (BEAKER) 2.1 mg/dL 1.6-2.6 Specimen slightly (test code = 627) hemolyzed [employer] ID - MACHELLE [id number] 04:54:00 Test Item Value Reference Range Interpretation Comments PHOSPHORUS (BEAKER) 4.3 mg/dL 2.3-4.7 Specimen slightly (test code = 604) hemolyzed [employer] ID - MACHELLE LBASIC METABOLIC [id number] 04:54:00 Test Item Value Reference Range Interpretation [...] S NOT APPLICABLE FOR DIALYSIS PATIEN TS. [employer] ID - MACHELLE LC-REACTIVE [id number] 04:54:00 Test Item Value Reference Range Interpretation Comments C-REACTIVE PROTEIN (BEAKER) (test 0.81 mg/dL 0.00-0.50 H code = 676) [employer] ID - MACHELLE LCBC W/PLT COUNT & AUTO [id number] 02:54:00 Test Item Value Reference Range Interpretation [...] = 2801) RAD, CHEST, 1 VIEW, NON [id number] 22:40:00Reason for exam:->strokeShould this be performed at the bedside?->Yes [facility] : 1980 Sex: FFINAL REPORT RAD, CHEST, 1 VIEW, NON DEPT TECHNIQUE: Frontal view(s) of the chest. INDICATION: stroke. COMPARISON: 08/20/2018 chest radiograph FINDINGS/IMPRESSION: Lines/Tubes: Unchanged 2-lead pacemaker Lungs/pleura: No focal consolidation or definite interstitial pulmonary edema. No pleural effusion. No pneumothorax. Heart and Mediastinum: Unremarkable. Soft Tissues and Bones: Unremarkable. Signed: Wilmer Nieves Verified Date/Time: 02/10/2021 22:40:02 Reading Location: [facility] C013 Transitional Reading Room XR chest 1 view portable / [id number] 22:40:00Interface, External Ris In - 02/10/2021 10:42 PM CDTFINAL REPORT RAD, CHEST, 1 VIEW, NON DEPT TECHNIQUE: Frontal view(s) of the chest. INDICATION: stroke. COMPARISON: 08/20/2018 chest radiograph FINDINGS/IMPRESSION: Lines/Tubes: Unchanged 2-lead pacemaker Lungs/pleura: No focal consolidation or definite interstitial pulmonary edema. No pleural effusion. No pneumothorax. Heart and Mediastinum: Unremarkable. Soft Tissues and Bones: Unremarkable. Signed: Wilmer Nieves MDReport Verified Date/Time: 02/10/2021 22:40:02 Reading Location: [facility] C013 Transitional Reading Room [facility] & AUTO [id number] 22:16:00 Test Item Value Reference Range Interpretation [...] Range Interpretation Comments BNP (test code = 82229-7) <10 0-100 SOMMER (test code = SOMMER) [employer] ID - BS Lab Interpretation (test Normal code = 61544-6) [facility] CenterB-TYPE NATRIURETIC FACTOR (BNP)2021-02-10 22:04:00 Test Item Value Reference Range Interpretation Comments B-TYPE NATRIURETIC PEPTIDE (BEAKER) < pg/mL 0-100 (test code = 700) [employer] ID - BSHigh Sensitivity Troponin I ([facility]/Haley Only)2021-02-10 21:57:00 Test Item Value Reference Range Interpretation Comments Troponin I HS <4 See_Comment [Automated (test code = message] The 01674-3) system which generated this result transmitted reference range : <=17 pg/ml. The reference range was not used to interpret this result as normal/abnormal . SOMMER (test code = [employer] - SOMMER) BSThe HAND MOLD MAKER STAT High Sensitivity Troponin-I results should be used in conjunction with other diagnostic information such as ECG, clinical observations and information, and patient symptoms to aid in the diagnosis of [place]. Lab Interpretation Normal (test code = 57628-8) [facility] CenterHIGH SENSITIVITY TROPONIN [id number] 21:57:00 Test Item Value Reference Range Interpretation Comments HIGH SENSITIVITY < pg/ml See_Comment [Automated message] TROPONIN I (test code = The system which 1939055) generated this result transmitted ref erence range: <=17. Th e reference range was not used to interpr et this result as normal/abnormal . [employer] ID - BSThe HAND MOLD MAKER STAT High Sensitivity Troponin-I results should be used in conjunctionwith other diagnostic information such as ECG, clinical observations and information, and patient symptoms to aid in the diagnosis of AK.Lipid abhyn8762-20-40 21:54:00 Test Item Value Reference Range Interpretation Comments Triglycerides (test 171 mg/dL Specimen code = 2571-8) markedly hemolyzed Cholesterol (test 218 mg/dL Specimen code = 2093-3) markedly hemolyzed HDL (test code = 47 mg/dL 2084-9) LDL Calculated (test 137 mg/dL code = 15647-3) SOMMER (test code = Triglyceride SOMMER) Reference Range: Low Risk <150 Borderline 150-199 High Risk 200-499 Very High Risk >=500 Cholesterol Reference Range: Low Risk <200 Borderline 200-239 High Risk >240 HDL Cholesterol Reference Range: Low Risk >=60 High Risk <40 LDL Cholesterol Reference Range: Optimal <100 Near Optimal 100-129 Borderline 130-159 High 160-189 Very High >=190 [employer] ID - BS [facility] Center[facility] [id number] 21:54:00 Test Item Value Reference Range Interpretation [...] Borderline 130-159 High 160-189 Very High >=190 [employer] ID - BSComprehensive metabolic [id number] 21:52:00 Test Item Value Reference Range Interpretation Comments Protein, Total 8.0 See_Comment Specimen slig htly (test code = hemolyzed 2884-2) [Automated message] The system which generated this result transmit aida reference range : 6.0 - 8.3 gm/dL . The reference range was not u sed to interpret th is result as normal/abnormal . Albumin (test code 4.2 g/dL 3.5-5 Specimen slightly = 45082-1) hemolyzed Alkaline 135 U/L 40-150 Phosphatase (test code = 6768-6) Total Bilirubin 0.2 mg/dL 0.2-1.2 Specimen i ghtly (test code = hemolyzed 1974-2) Sodium (test code = 139 meq/L 345-768 6730-2) Potassium (test 4.5 meq/L 3.5-5.1 Specimen i ghtly code = 2823-3) hemolyzed Chloride (test code 103 meq/L 98-107 = 2075-0) CO2 (test code = 25 meq/L 22-29 2027-9) BUN (test code = 9 mg/dL 7-21 3094-0) Creatinine (test 0.78 mg/dL 0.57-1.25 Specimen [facility] code = 2160-0) hemolyzed Glucose (test code 105 mg/dL 70-105 = 2345-7) Calcium (test code 9.6 mg/dL 8.4-10.2 = 78289-3) AST (test code = 28 U/L 5-34 Specimen [facility] 1920-8) hemolyzed ALT (test code = 52 U/L 6-55 Specimen [facility] 1742-6) hemolyzed EGFR (test code = 82 mL/min/1.73 [place] [address]-1) NOT ACCURATE CREATININE CLEARANCE IN PREDICTING GLOMERULAR FILTRATION RATE . ESTIMATED GFR I S NOT APPLICABLE FOR DIALYSIS PATIEN TSMariia SOMMER (test code = [employer] ID - BS SOMMER) [facility] CenterCreatine Kinase (CK)2021-02-10 21:52:00 Test Item Value Reference Range Interpretation Comments Total CK (test code = 70 U/L 29-200 2157-6) SOMMER (test code = SOMMER) [employer] ID - BS Lab Interpretation (test Normal code = 60931-3) [facility] CenterMAGNESIUM2021-05-19 21:52:00 Test Item Value Reference Range Interpretation Comments MAGNESIUM (BEAKER) 2.2 mg/dL 1.6-2.6 Specimen slightly (test code = 627) hemolyzed [employer] ID - KLIHNFHEQPRH1998-61-64 21:52:00 Test Item Value Reference Range Interpretation Comments PHOSPHORUS (BEAKER) 4.4 mg/dL 2.3-4.7 Specimen slightly (test code = 604) hemolyzed [employer] ID - BSCOMPREHENSIVE METABOLIC [id number] 21:52:00 Test Item Value Reference Range Interpretation [...] S NOT APPLICABLE FOR DIALYSIS PATIEN TS. [employer] ID - BSCREATINE KINASE (CK)2021-02-10 21:52:00 Test Item Value Reference Range Interpretation Comments CREATINE KINASE TOTAL (BEAKER) (test 70 U/L 29-200 code = 380) [employer] ID - [id number] 21:46:00 Test Item Value Reference Range Interpretation Comments PTT (test code = 03715-1) 30.5 See_Comment [ Automated message] The system [employer] generated this result transmitted ref erence range: 22.5 - 3 6.0 seconds. The re ference range was not u sed to interpret this result as normal/abnor mal. Lab Interpretation (test Normal code = 80299-1) [facility] CenterLactic acid, [id number] 21:46:00 Test Item Value Reference Range Interpretation Comments Lactate, Venous (test 1.96 mmol/L 0.5-2.2 Specim en code = 2872) markedly hemolyzed SOMMER (test code = SOMMER) [employer] ID - BS Lab Interpretation Normal (test code = 56779-0) [facility] CenterAPTT2021-05-19 21:46:00 Test Item Value Reference Range Interpretation Comments PARTIAL THROMBOPLASTIN TIME 30.5 seconds 22.5-36.0 (BEAKER) (test code = 760) LACTIC ACID, [id number] 21:46:00 Test Item Value Reference Range Interpretation Comments LACTATE BLOOD VENOUS 1.96 mmol/L 0.50-2.20 Specime n markedly (2) (BEAKER) (test hemolyzed code = 2872) [employer] ID - BSProthrombin time/[id number] 21:45:00 Test Item Value Reference Interpretation Comments [...] valves. Lab Interpretation Normal (test code = 05882-0) [facility] CenterPROTHROMBIN TIME/[id number] 21:45:00 Test Item Value Reference Range Interpretation Comments PROTIME (BEAKER) 12.7 seconds 11.9-14.2 (test code = 759) INR (BEAKER) (test 0.98 See_Comment [Automat ed message] code = 370) The system [employer] generated this result transmitted ref erence range: <=5.90. The reference range was not used to int erpret this result as normal/abnormal . RECOMMENDED COUMADIN/WARFARIN INR THERAPY RANGESSTANDARD DOSE: 2.0 - 3.0 Includes: PROPHYLAXIS forvenous thrombosis, systemic embolization; TREATMENT for venous thrombosis and/or pulmonary embolus.HIGH RISK: Target INR is 2.5-3.5 for patients with mechanical heart valves.POC-Glucose ewkjk9997-47-68 21:39:00 Test Item Value Reference Range Interpretation Comments POC-Glucose Meter (test 93 mg/dL 70-110 : TE STED AT [facility] code = 1538) [address] [facility] [facility] [address]: [employer]/Techni rhonda ID = [id number] for AILYN JAVIER Lab Interpretation (test Normal code = 05525-0) [facility] CenterPOCT-GLUCOSE [id number] 21:39:00 Test Item Value Reference Range Interpretation Comments POC-GLUCOSE METER 93 mg/dL 70-110 : TESTED A T [facility] [address] (ARNOL) (test code = AYLIN Rivera [place], 1538) [address]: [employer]/Techni rhonda ID = [id number] for GERTRUDE SHAY [id number] 15:45:00 Test Item Value Reference Range Interpretation Comments SURG (test code = SURG) RUN DATE: 09/30/20 [facility] - LAB PAGE 1 RUN TIME: 1545 Specimen Inquiry RUN USER: INTERFACE PATIENT: ADAM MARSH LOC: [place] U #: [id number] AGE/SX: 40/F ROOM: RE09/29/20MANDIE DR: Linus Boone MD : 82 BED: DIS: STATUS: [facility] TLOC: SPEC #: PMC:S RECD: 09/29/20 STATUS: MACIEL DEY #: [id number] WU: 09/29/[address]: Linus Boone MD ENTERED: 09/29/20 SP TYPE: SURG OTHR DR: Undefined Provider ORDERED: SURG PATH LVL 4 COPIES TO: Linus Boone MD [address] [place] [id number] Undefined Provider HISTOLOGY: TISSUE ID BLK PCS DHIRAJ LEV PROCEDURE DISPOSITION ____ ___ ___ ___ STOMACH, NOS A 1 2 PROCEDURES: SURG PATH LVL 4 (09/29/20) TISSUES: A. STOMACH, NOS - GASTRIC BIOPSY CLINICAL HISTORY R10.13, K21.9, K92.0, R14.0, R11.2, R19.7, R19.4 CPT CODES CPT CODE(S): 67227 , , , , , , FINAL DIAGNOSIS Stomach, biopsy: MILD CHRONIC GASTRITIS NEGATIVE FOR INTESTINAL METAPLASIA, DYSPLASIA, OR MALIGNANCY NEGATIVE FOR HELICOBACTER PYLORI ORGANISMS GROSS DESCRIPTION Gastric biopsy. Received in formalin are two wilkinson tissue fragments, 0.4 cm each, all as A. bk/nr Grossing performed at [facility] Pathology, [address], [address], [place] [address]. [employer] Software Engineer: Aditya Hanson M.D. CONTINUED ON NEXT PAGE RUN DATE: 09/30/20 [facility] PAGE 2 RUN TIME: 1545 Specimen Inquiry RUN USER: INTERFACE SPEC #: [facility]:S PATIENT: ADAM MARSH #[id number] (Continued) MICROSCOPIC DESCRIPTION Gastric biopsy. Sections demonstrate gastric mucosa with mild chronic inflammation. No dysplasia or malignancy is identified. No evidence of Helicobacter pylori organisms or intestinal metaplasia is seen. Signed SIGNATURE ON FILE ShondapilarHector M 09/30/20 1545 END OF REPORT COVID 19 INHOUSE [id number] 13:41:00 Test Item Value Reference Range Interpretation Comments COVID 19 INHOUSE AG NEGATIVE Negative Per manu facturer, (test code = negative result s should [id number]) be treated aspr esumptive and, if inconsi [...] symptoms co nsistent with COVID-19. BASIC METABOLIC [id number] 13:40:00 Test Item Value Reference Range Interpretation [...] MG/DL 8.5-10.1 N - XR CHEST 1 [id number] 13:33:00 [facility] : 1980 Sex: F Name: ADAM MARSH [facility] : [birth year] Age/S: 40 / F [address] Unit #: [id number] Loc: [place] [address] Phys: Linus Boone MD Acct: [id number] Dis Date: Status: PRE SDC PHONE #: [phone] Exam Date: 09/28/2020 1326 FAX #: Reason: PREOP EXAMS: CPT: [id number] XR CHEST 1 V 04605 Fluoro Time: DAP (Gy m2): Air Kerma [...] PAGE 1 Signed Report Name: ADAM MARSH [place] : 1980 Age/S: 40 / F [id number] [place] [address] Unit #: [id number] Loc: [place] [address] Phys: Linus Boone MD Acct: [id number] Dis Date: Status: PRE [facility] PHONE #: [phone] Exam Date: 09/28/2020 1326 FAX #: Reason: PREOP EXAMS: CPT: [id number] XR CHEST 1 V 71437 Fluoro Time: DAP (Gy m2): Air Kerma (mGy): <Continued> Technologist: Shari Davila RT(R)(CT) Trnscb Date/Time: 09/28/2020 (3943) 16 Orig Print D/T: S: 09/28/2020 (6182) PAGE 2 SignedReportPROTHROMBIN [id number] 13:29:00 Test Item Value Reference Range Interpretation Comments PT PATIENT (test code = PTP) 10.6 SECONDS 9.3-12.9 N INTERNATIONAL NORMAL RATIO 0.95 INR Unit 0.8-1.2 N (test code = INR) THROMBOPLASTIN TIME [id number] 13:29:00 Test Item Value Reference Range Interpretation Comments THROMBOPLASTIN TIME PARTIAL 28.0 SECONDS 26-35 N (test code = PTT) CBC W/AUTO [id number] 13:26:00 Test Item Value Reference Range Interpretation [...] code NO DIFF/SCN CRITERIA = MDIFF) POCT-GLUCOSE [id number] 10:22:00 Test Item Value Reference Range Interpretation Comments POC-GLUCOSE METER 102 mg/dL 70-110 TESTED AT [facility] [address] ([address]) (test code = AYLIN [place] 1538) [address] MR, MRA, BRAIN, WITHOUT [id number] 09:32:00Reason for exam:->Ischemic Stroke EvaluationFINAL REPORT MRA Head CLINICAL HISTORY: Ischemic Stroke TECHNIQUE: MRA of the head utilizing 3-D perf-gv-hwwgcc technique, with 3-D reconstructions. COMPARISON: None FINDINGS: There is no evidence of intracranial aneurysm, focal stenosis, or major branch vessel occlusion. IMPRESSION: No evidence for a major [place] proximal branch vessel occlusion. MRA Neck CLINICAL HISTORY: Ischemic Stroke TECHNIQUE: MRA of the neck utilizing 2-D and 3-D hdrh-ga-fzywvw technique, with 3-D reconstructions. COMPARISON: None FINDINGS: The carotid arteries in the neck are patent including their bifurcations. There is antegrade flow in the vertebral arteries in the neck. IMPRESSION: No evidence of hemodynamically significant stenosis in the cervical carotid or vertebral arteries by NASCET criteria. Signed: Santos Winn [facility] Verified Date/Time: 08/21/2018 09:32:09 Reading Location: [facility] C013V Neuro Reading Room MR, MRA, NECK, WITHOUT IV [id number] 09:32:00Reason for exam:->Ischemic Stroke EvaluationFINAL REPORT MRA Head CLINICAL HISTORY: Ischemic Stroke TECHNIQUE: MRA of the head utilizing 3-D eovu-py-ulkdev technique, with 3-D reconstructions. COMPARISON: None FINDINGS: There is no evidence of intracranial aneurysm, focal stenosis, or major branch vessel occlusion. IMPRESSION: No evidence for a major [place] proximal branch vessel occlusion. MRA Neck CLINICAL HISTORY: Ischemic Stroke TECHNIQUE: MRA of the neck utilizing 2-D and 3-D mdtr-hs-kwkrij technique, with 3-D reconstructions. COMPARISON: None FINDINGS: The carotid arteries in the neck are patent including their bifurcations. There is antegrade flow in the vertebral arteries in the neck. IMPRESSION: No evidence of hemodynamically significant stenosis in the cervical carotid or vertebral arteries by NASCET criteria. Signed: Santos Winn Verified Date/Time: 08/21/2018 09:32:09 Reading Location: [address] Neuro Reading Room MR, BRAIN, WITHOUT [id number] 09:25:00Reason for exam:- >Ischemic Stroke EvaluationFINAL REPORT [...] Verified Date/Time: 08/21/2018 09:25:25 Reading Location: [facility] C013V Neuro R eading Room POCT-GLUCOSE [id number] 21:26:00 Test Item Value Reference Range Interpretation Comments POC-GLUCOSE METER 119 mg/dL 70-110 H TESTED AT [facility] [address] ([facility] (test code = [place] 1538) [address] POCT-GLUCOSE [id number] 18:03:00 Test Item Value Reference Range Interpretation Comments POC-GLUCOSE METER 119 mg/dL 70-110 H TESTED AT [facility] [address] (BEAKER) (test code = AYLIN Rivera [facility] 1538) [address] POCT-GLUCOSE [id number] 12:39:00 Test Item Value Reference Range Interpretation Comments POC-GLUCOSE METER 120 mg/dL 70-110 H TESTED AT [facility] [address] [facility] (test code = AYLIN Rivera [facility] 1538) [address] RAD, CHEST, 1 VIEW, NON [id number] 12:04:00Reason for exam:->To Locate Heart Device (Pacemaker)Should [...] MDReport Verified Date/Time: 08/20/2018 12:04:06 Reading Location: [facility] Radiology Reading Room POCT-GLUCOSE [id number] 09:17:00 Test Item Value Reference Range Interpretation Comments POC-GLUCOSE METER 121 mg/dL 70-110 H TESTED AT [place] [address] ([facility] (test code = AYLIN Rivera [facility] 1538) [address] BASIC METABOLIC [id number] 06:56:00 Test Item Value Reference Range Interpretation [...] NOT APPLICABLE FOR DIALYSIS PATIEN TS. POCT-GLUCOSE [id number] 21:09:00 Test Item Value Reference Range Interpretation Comments POC-GLUCOSE METER 109 mg/dL 70-110 TESTED AT [facility] [address] (BEAKER) (test code = [facility] 1538) [address] POCT-GLUCOSE [id number] 17:15:00 Test Item Value Reference Range Interpretation Comments POC-GLUCOSE METER 117 mg/dL 70-110 H TESTED AT [place] [address] (BEAKER) (test code = [facility] 1538) [address] VITAMIN B12 AND [id number] 06:39:00 Test Item Value Reference Range Interpretation Comments VITAMIN B12 (BEAKER) (test code = 524 pg/mL 213-816 774) FOLATE (BEAKER) (test code = 362) 13.5 ng/mL >=7.0 BASIC METABOLIC [id number] 05:48:00 Test Item Value Reference Range Interpretation [...] S NOT APPLICABLE FOR DIALYSIS PATIEN TS. [id number] 15:42:00 Test Item Value Reference Range Interpretation Comments RPR SCREEN (BEAKER) (test code = Nonreactive Nonreactive 420) HEMOGLOBIN [id number] 09:14:00 Test Item Value Reference Range Interpretation Comments HEMOGLOBIN A1C (BEAKER) (test code = 5.3 % 4.3-6.1 368) TSH/FREE T4 IF [id number] 04:49:00 Test Item Value Reference Range Interpretation Comments THYROID STIMULATING HORMONE 3.18 uIU/mL 0.35-4.94 (BEAKER) (test code = 772) BASIC METABOLIC [id number] 04:38:00 Test Item Value Reference Range Interpretation [...] NOT APPLICABLE FOR DIALYSIS PATIEN TS. LIPID [id number] 04:38:00 Test Item Value Reference Range Interpretation [...] 130-159 High 160-189 Very High >=190HEPATIC FUNCTION [id number] 04:38:00 Test Item Value Reference Range Interpretation [...] (test code = 413) AFB Culture and [id number] 13:24:00Specimen/Source: Wound/PACEMAKERCollected: 09/05/2017 19:45 Status: Final Last Updated: 11/01/2017 13:24 FVI-Txjfu-Uixkcajznrqs (Final) (Final) 09/07/17 No acid fast bacill seen on direct smear Culture Result (Final) (Final) 11/01/17 No growth of AFB at six (6) weeksFungus Culture with [id number] 12:12:00 Specimen/Source: Wound/PACEMAKERCollected: 09/05/2017 19:45 Status: Final Last Updated: 10/22/2017 12:12 Fungal Smear Result (Final) (Final) 09/06/17 No yeast or hyphae seen Culture Result (Final) (Final) 10/22/17 No fungus isolated at 6 weeksCulture, Blood [id number] 08:23:00Specimen: BloodCollected: 09/04/2017 20:30 Status: Final Last Updated: 09/10/2017 08:23 Culture Result (Final) (Final) No Growth After 5 DaysCulture, Blood [id number] 08:23:00Specimen: BloodCollected: 09/04/2017 20:15 Status: Final Last Updated: 09/10/2017 08:23 Culture Result (Final) (Final) No Growth After 5 DaysCulture, Wound [id number] 08:52:00Specimen: WoundCollected: 09/05/2017 19:45 Status: Final Last Updated: 09/08/2017 08:52 Gram Stain (Final) (Final) 09/06/17 No organisms seen, Few WBC's Culture Result (Final) (Final) 09/08/17 Anaerobic culture:No anaerobes isolated at 3 days Isolate (Final) (Final) 09/07/17Few Staph-coag positive Isolate Staph-coag positive JERMAINE (mcg/ml) Amoxicillin/Clav (AUG)<=4/2 Susceptible Ampicillin (AM) >8 Resistant Ampicillin/Sulb (A/S) <=8/4 Susceptible Cefazolin (CFZ) <=4 Susceptible Ceftriaxone (INSPECTOR METAL CAN) <=4 Susceptible Chloramphenicol (C) <=8 Susceptible Ciprofloxacin (CP) <=1 Susceptible Clindamycin (CM) 0.5 Susceptible Erythromycin (E) <=0.25 Susceptible Gentamicin (GM) <=1 Susceptible Imipenem (IMP) <=4 Susceptible Levofloxacin (LEV) <=0.5 Susceptible Linezolid (LNZ) 4 Susceptible Oxacillin (OX1) 0.5 Susceptible Penicillin (P) >8 Resistant Rifampin (RA) <=1 Susceptible Tetracycline (TE) <=1 Susceptible Trimethoprim/Sulfa <=0.5/9.Susceptible (SXT) 5 Vancomycin (VA) 2 SusceptibleRenal [id number] 08:51:00 Test Item Value Reference Range Interpretation [...] National Kidney Foundation,http :[email or web address] ep.nih.gov CBC with [id number] 07:39:00 Test Item Value Reference Range Interpretation [...] code = ALYMPH) 1.7 K/cumm 0.5-4.6 N Greene Abs (test code = AMONO) 0.3 K/cumm 0.0-1.2 N Eos Abs (test code = AEOS) 0.29 K/cumm 0.00-0.74 N Baso Abs (test code = ABASO) 0.0 K/cumm 0.00-0.21 N Vancomycin, [id number] 12:33:00 Test Item Value Reference Range Interpretation Comments Vanco, Trou (test code = VANTR) 7.9 ug/mL 10.0-20.0 L Magnesium, [id number] 06:37:00 Test Item Value Reference Range Interpretation Comments Magnesium (test code = MG) 2.4 mg/dL 1.7-2.5 N Renal [id number] 06:29:00 Test Item Value Reference Range Interpretation [...] National Kidney Foundation,http ://nkd ep.nih.gov BHCG, Serum, [id number] 06:26:00 Test Item Value Reference Range Interpretation Comments Preg Qual [Se] (test code = BSHCG) Negative Negative N CBC with [id number] 06:24:00 Test Item Value Reference Range Interpretation [...] code = ALYMPH) 1.6 K/cumm 0.5-4.6 N Greene Abs (test code = AMONO) 0.4 K/cumm 0.0-1.2 N Eos Abs (test code = AEOS) 0.18 K/cumm 0.00-0.74 N Baso Abs (test code = ABASO) 0.0 K/cumm 0.00-0.21 N XR CHEST 1 [id number] 16:29:55XR CHEST 1 VIEWLOCATION: [id number]: None.INDICATION: REVIEW PICC LINE PLACEMENTDISCUSSION:AP chest and [...] = TSH) 3.44 mIU/mL 0.270-4.200 N Lipid [id number] 05:47:00 Test Item Value Reference Range Interpretation Comments Cholesterol (test 160 mg/dL 0-200 N code = CHOL) Triglycerides (test 126 mg/dL 9-200 N code = TRIG) HDL (test code = 35 mg/dL 50-60 L HDL) Chol/HDL (test code 4.6 Ratio 0.0-4.4 H = CHOLPHDL) LDL, Calculated 100 0-130 N (NOTE)RISK O F HEART (test code = LDLC) DISEASEPu blished by [place] Heart AssociationAnal yte Optim al Boderline Increased RiskC HOL <200 200-239 >240TRI G <150 150-199 >200HDL Male: >60 <40HDL Female: >60 <50 LDL < 100 130-15 9 >160 LDL NEAR OPTIMAL IS 100- 129 VLDL (test code = 25 mg/dL 5-40 N VLDL) LDL/HDL (test code = 3 LDLPHDL) Basic Metabolic [id number] 05:47:00 Test Item Value Reference Range Interpretation [...] the National Kidney Foundation,http ://nkd ep.nih.gov Magnesium, [id number] 05:47:00 Test Item Value Reference Range Interpretation Comments Magnesium (test code = MG) 2.3 mg/dL 1.7-2.5 N CBC with [id number] 05:36:00 Test Item Value Reference Range Interpretation [...] code = ALYMPH) 2.2 K/cumm 0.5-4.6 N Greene Abs (test code = AMONO) 0.3 K/cumm 0.0-1.2 N Eos Abs (test code = AEOS) 0.24 K/cumm 0.00-0.74 N Baso Abs (test code = ABASO) 0.0 K/cumm 0.00-0.21 N Partial Thromboplastin [id number] 21:26:00 Test Item Value Reference Range Interpretation Comments aPTT (test code = PTT) 29.00 seconds 24.39-37.25 N Prothrombin [id number] 21:26:00 Test Item Value Reference Range Interpretation Comments PT (test code = PT) 10.70 seconds 9.78-13.35 N INR (test code = INR) 0.95 Ratio 0.6-1.2 N Comprehensive Metabolic [id number] 21:23:00 Test Item Value Reference Range Interpretation [...] National Kidney Foundation,http :[email or web address] ep.nih.gov CBC with Omyaatdgbejt4784-05-29 21:16:00 Test Item Value Reference Range Interpretation [...] code = ALYMPH) 2.2 K/cumm 0.5-4.6 N Greene Abs (test code = AMONO) 0.4 K/cumm 0.0-1.2 N Eos Abs (test code = AEOS) 0.17 K/cumm 0.00-0.74 N Baso Abs (test code = ABASO) 0.1 K/cumm 0.00-0.21 N
[2021-11-26 22:29] LABS: Absolute Lymphocytes (CBC) 1.8 K/uL (0.7-4.9); Hematocrit 40.2 % (36.0-45.0); Lymphocytes % 26.5 % (15.3-44.8); MPV 8.3 fL (7.6-11.3)
[2021-11-26 22:30] LABS: Protime INR 0.93
[2021-11-26 22:35] LABS: Urine Blood Negative (Negative); Urine Glucose Negative (Negative); Urine Protein Negative (Negative); Urine pH 7.5 (5.0-7.0)
[2021-11-26 22:46] LABS: AST/SGOT 15 U/L (15-37); BUN Blood Urea Nitrogen 13 mg/dL (7-18); Bicarbonate 27 mmol/L (21-32); Glucose Level 103 mg/dL (74-106); Potassium 3.5 mmol/L (3.5-5.1); Sodium Level 141 mmol/L (136-145)
[2021-11-26 22:47] LABS: ALT/SGPT 30 U/L (12-78); Albumin 3.5 g/dL (3.4-5.0); Alkaline Phosphatase 111 U/L (45-117); Bilirubin Total 0.2 mg/dL (0.2-1.0); Magnesium 2.4 mg/dL (1.8-2.4); Protein, Total 7.1 g/dL (6.4-8.2)
[2021-11-26 22:49] LABS: Bilirubin Direct < 0.1 mg/dL (0-0.2); Troponin High Sensitivity < 3.00 pg/mL (<58.9)
[2021-11-26 23:02] LABS: SARS-COV-2 RT PCR NEGATIVE (NEGATIVE)
[2021-11-26] MEDS ORDERED: NA CHLORIDE 0.9% 500 ML ONE (23:39)
[2021-11-26 23:59] LABS: NT PRO-BNP 24 pg/mL (<125)
[2021-11-27] MEDS ORDERED: METHYLPREDNISOLONE 125 MG INJ ONE (00:14)
[2021-11-27] MEDS ORDERED: LEVALBUTEROL 1.25 MG/3 ML NEB ONE (00:14)
[2021-11-27 00:36] LABS: Barbiturates NEGATIVE (NEGATIVE); Benzodiazepines NEGATIVE (NEGATIVE); Cocaine NEGATIVE (NEGATIVE); METHAMPHETAM NEGATIVE (NEGATIVE); Methadone NEGATIVE (NEGATIVE); Opiates NEGATIVE (NEGATIVE); Phencyclidine NEGATIVE (NEGATIVE); THC Cannibis NEGATIVE (NEGATIVE)
--- NOTE | 2021-11-27 01:41 | EDPHYS ---
Physician Documentation [facility] Name: Jenni Draper Age: 41 yrs Sex: Female : 1980 Arrival Date: 11/26/2021 Time: 20:47 Bed 20 Private MD: Diya Mora Atiq ED Physician Davion Hernandez HPI: 11/26 22:24 This 41 yrs old Female presents to ER via Wheelchair with complaints of Blurred Vision, mh7 Dizziness, Cough, Shortness Of Breath. 22:24 The patient presents with dizziness, lightheadedness. Onset: The symptoms/episode mh7 began/occurred today, at 18:30. Context: occurred at home, occurred while the patient was sitting, just prior to the episode the patient experienced no apparent symptoms. Modifying factors: The symptoms are alleviated by nothing, the symptoms are aggravated by standing up. Associated signs and symptoms: Pertinent positives: blurred vision, nausea, shortness of breath, Cough, Pertinent negatives: abdominal pain, agitation, ataxia, chest pain, combativeness, confusion, diaphoresis, focal weakness, head injury, headache, near-syncope, numbness, palpitations, , seizure, syncope, tingling, vomiting. Severity of symptoms: At their worst the symptoms were moderate today, in the emergency department the symptoms have improved moderately. Patient's baseline: Neuro: alert and fully oriented, Motor: no deficits, Ambulation: walks without assistance, Speech: normal. 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 LMP N/A - Hysterectomy lg3 Historical: - Allergies: 21:20 Adhesives; lg3 21:20 Aspirin; lg3 21:20 Bactrim; lg3 21:20 Benadryl; lg3 21:20 Cipro IV; lg3 21:20 Clindamycin; lg3 21:20 coconut oil; lg3 21:20 Detrol; lg3 21:20 Diltiazem; lg3 21:20 Doxycycline; lg3 21:20 FISH PRODUCT DERIVATIVES; lg3 21:20 GABAPENTIN; lg3 21:20 Iodine; lg3 21:20 ivabradine; lg3 21:20 Latex, Natural Rubber; lg3 21:20 Morphine; lg3 21:20 PENICILLINS; lg3 - Home Meds: 21:20 albuterol sulfate 2.5 mg /3 mL (0.083 %) Inhl nebu 3 mL 3 times per day [Active]; lg3 apixaban 5 mg Oral tab 1 tab 2 times per day [Active]; carvedilol 25 mg Oral tab 1 tab 2 times per day [Active]; Crestor 5 mg Oral tab 1 tab once daily [Active]; digoxin 125 mcg (0.125 mg) Oral tab 1 tab once daily [Active]; Keppra 750 mg Oral tab 1 tab [Active]; Lasix 20 mg Oral tab 1 tab [Active]; Nexium 20 mg Oral cpDR 1 cap once daily [Active]; nitroglycerin 0.4 mg Oral [Active]; pregabalin 50 mg Oral cap 1 cap 3 times per day [Active]; Ubrelvy 100 mg Oral tab 1 tab [Active]; venlafaxine 150 mg Oral cp24 1 cap once daily [Active]; Vraylar 3 mg Oral cap 1 cap once daily [Active]; Xanax 0.25 mg Oral tab 1 tab [Active]; - PMHx: 21:20 Asthma; Atrial fibrillation; CVA; Depression; DVT; Hypertensive disorder; Migraine; lg3 Seizure; TIA; - PSHx: 21:20 Ligation of fallopian tube; pace maker placement; Cholecystectomy; right hand cyst lg3 removal; left shoulder; - Immunization history:: Adult Immunizations up to date, Client reports receiving the 2nd dose of the Covid vaccine, Moderna X2. - Social history:: Smoking status: Patient denies any tobacco usage or history of. Patient/guardian denies using alcohol, street drugs. ROS: 22:24 Constitutional: Negative for fever, chills, and weight loss, Eyes: Negative for injury, mh7 pain, redness, and discharge, ENT: Negative for injury, pain, and discharge, Neck: Negative for injury, pain, and swelling, Cardiovascular: Negative for chest pain, palpitations, and edema. 22:24 Back: Negative for injury and pain, : Negative for injury, bleeding, discharge, and swelling, MS/Extremity: Negative for injury and deformity, Skin: Negative for injury, rash, and discoloration, Neuro: Negative for headache, weakness, numbness, tingling, and seizure, Psych: Negative for depression, anxiety, suicide ideation, homicidal ideation, and hallucinations, Allergy/Immunology: Negative for hives, rash, and allergies, Endocrine: Negative for neck swelling, polydipsia, polyuria, polyphagia, and marked weight changes, Hematologic/Lymphatic: Negative for swollen nodes, abnormal bleeding, and unusual bruising. 22:24 Abdomen/GI: Negative for abdominal pain, vomiting, diarrhea, constipation, abdominal cramps, abdominal distension, anorexia, dysphagia, hematemesis, black/tarry stool, rectal pain, rectal bleeding, bowel incontinence, flatulence. Exam: 22:24 Constitutional: This is a well developed, well nourished patient who is awake, alert, mh7 and in no acute distress. Head/Face: Normocephalic, atraumatic. Eyes: Pupils equal round and reactive to light, extra-ocular motions intact. Lids and lashes normal. Conjunctiva and sclera are non-icteric and not injected. Cornea within normal limits. Periorbital areas with no swelling, redness, or edema. Neck: Trachea midline, no thyromegaly or masses palpated, and no cervical lymphadenopathy. Supple, full range of motion without nuchal rigidity, or vertebral point tenderness. No Meningismus. Chest/axilla: Normal chest wall appearance and motion. Nontender with no deformity. No lesions are appreciated. Cardiovascular: Regular rate and rhythm with a normal S1 and S2. No gallops, murmurs, or rubs. Normal PMI, no JVD. No pulse deficits. Respiratory: Lungs have equal breath sounds bilaterally, clear to auscultation and percussion. No rales, rhonchi or wheezes noted. No increased work of breathing, no retractions or nasal flaring. Abdomen/GI: Soft, non-tender, with normal bowel sounds. No distension or tympany. No guarding or rebound. No evidence of tenderness throughout. Back: No spinal tenderness. No costovertebral tenderness. Full range of motion. Skin: Warm, dry with normal turgor. Normal color with no rashes, no lesions, and no evidence of cellulitis. MS/ Extremity: Pulses equal, no cyanosis. Neurovascular intact. Full, normal range of motion. Neuro: Awake and alert, GCS 15, oriented to person, place, time, and situation. Cranial nerves II-XII grossly intact. Motor strength 5/5 in all extremities. Sensory grossly intact. Cerebellar exam normal. Normal gait. Psych: Awake, alert, with orientation to person, place and time. Behavior, mood, and affect are within normal limits. Vital Signs: 21:16 BP 126 / 74; Pulse 102; Resp 19 S; Temp 98.3(TE); Pulse Ox 98% on R/A; Weight 59.42 kg lg3 (R); Height 4 ft. 11 in. (149.86 cm) (R); Pain 7/10; 22:30 BP 113 / 87; Pulse 100; Resp 18; Temp 98.5; Pulse Ox 100% on R/A; Pain 0/10; stanton 22:30 BP 109 / 85; Pulse 102; Resp 16; Pulse Ox 99% on R/A; stanton 23:43 BP 109 / 85 Supine; Pulse 100; stanton 23:43 BP 122 / 95 Sitting; Pulse 103; stanton 23:43 BP 126 / 85 Standing; Pulse 106; stanton 03/ 00:55 BP 98 / 69; Pulse 98; Resp 16; Pulse Ox 98% on R/A; Pain 0/10; stanton 01:29 BP 108 / 83; Pulse 98; Resp 18; Pulse Ox 97% on R/A; Pain 0/10; stanton 01:56 BP 128 / 82; Pulse 90; Resp 18; Temp 98.5; Pulse Ox 100% on R/A; Pain 0/10; stanton 03/04 21:16 Body Mass Index 26.46 (59.42 kg, 149.86 cm) lg3 MDM: 01:38 Differential diagnosis: cardiac arrhythmia, hyperventilation, hypovolemia, idiopathic mh7 dizziness, near-syncope, vertigo. Data reviewed: vital signs, nurses notes, old medical records, lab test result(s), cardiac enzymes, CBC, drug level(s), digoxin, electrolytes, Flu: negative urinalysis, EKG, radiologic studies, CT scan, plain films. Data interpreted: Pulse oximetry: on room air is 97 %. Interpretation: normal. Counseling: I had a detailed discussion with the patient and/or guardian regarding: the historical points, exam findings, and any diagnostic results supporting the discharge/admit diagnosis, lab results, radiology results, the need for outpatient follow up, to return to the emergency department if symptoms worsen or persist or if there are any questions or concerns that arise at home. Response to treatment: the patient's symptoms have resolved after treatment, the patient's blood pressure is in an acceptable range, mental status has returned to baseline, the patient no longer shows bradycardia, the patient is not short of breath, the patient is not tachycardic, the patient's pain is gone, the patient's temperature has normalized, the patient is now symptom free, patient is well hydrated. 01:41 Patient medically screened. [facility] 11/26 21:59 Order name: Basic Metabolic Panel; Complete Time: 00:19 [facility] 11/26 21:59 Order name: CBC with Diff; Complete Time: 23:32 [facility] 11/26 21:59 Order name: LFT's; Complete Time: 00:19 [facility] 11/26 21:59 Order name: Magnesium; Complete Time: 00:19 [facility] 11/26 21:59 Order name: NT PRO-BNP; Complete Time: 00:19 [facility] 11/26 21:59 Order name: PT-INR; Complete Time: 23:32 [facility] 11/26 21:59 Order name: Troponin HS; Complete Time: 00:19 [facility] 11/26 22:00 Order name: COVID-19/FLU A+B (Document "Date of Onset" if Symptomatic); Complete Time: [facility] 23:32 11/26 22:34 Order name: Urine Dipstick-Ancillary; Complete Time: 23:32 [facility] 11/26 22:35 Order name: Urine --Ancillary (enter results) [facility] 11/26 22:35 Order name: Urine --Ancillary; Complete Time: 23:32 [facility] 11/26 23:37 Order name: Digoxin; Complete Time: 01:26 [facility] 11/26 23:38 Order name: UDS [facility] 11/26 23:39 Order name: Urine Drug Screen; Complete Time: 00:46 [facility] 11/26 21:59 Order name: XRAY Chest (1 view) [facility] 11/26 21:59 Order name: EKG; Complete Time: 21:59 [facility] 11/26 21:59 Order name: Cardiac monitoring; Complete Time: 22:36 [facility] 11/26 21:59 Order name: EKG - Nurse/Tech; Complete Time: 22:36 [facility] 11/26 21:59 Order name: IV Saline Lock; Complete Time: 22:36 [facility] 11/26 21:59 Order name: Labs collected and sent; Complete Time: 22:36 [facility] 11/26 21:59 Order name: O2 Per Protocol; Complete Time: 22:36 [facility] 11/26 21:59 Order name: O2 Sat Monitoring; Complete Time: 22:36 [facility] 11/26 22:01 Order name: Urine Dipstick-Ancillary (obtain specimen); Complete Time: 22:35 [facility] 11/26 22:01 Order name: Urine Test (obtain specimen); Complete Time: 22:36 [facility] 11/26 22:24 Order name: CT Head Brain wo Cont [facility] 11/26 22:33 Order name: Orthostatics; Complete Time: 23:34 7 Administered Medications: 11/26 23:30 Drug: NS 0.9% 500 ml Route: IV; Rate: bolus; Site: left antecubital; [place] 11/27 00:54 Follow up: IV Status: Completed infusion; IV Intake: 500ml stanton 00:15 Drug: Xopenex (levalbuterol) 1.25 mg Route: Inhalation; stanton 00:51 Follow up: Response: Marked relief of symptoms stanton 00:15 Drug: SOLU-Medrol (methylPrednisoLONE) 125 mg Route: IVP; Site: left antecubital; stanton 00:52 Follow up: Response: Marked relief of symptoms stanton Disposition Summary: 11/27/21 01:41 Discharge Ordered Location: Home [facility] Problem: an acute exacerbation [facility] Symptoms: have improved [facility] Condition: Stable [facility] Diagnosis - Dizziness and giddiness 7 - Bronchitis, not specified as acute or chronic [facility] Followup: [facility] - With: Private Physician - When: 1 - 2 days - Reason: Worsening of condition, Recheck today's complaints, Continuance of care, Re-evaluation by your physician Discharge Instructions: - Discharge Summary Sheet 7 - Chronic Bronchitis, Adult 7 - Acute Bronchitis, Adult, [id number] 7 - Dizziness, [id number] [facility] Forms: - Medication Reconciliation Form [facility] - Thank You Letter [facility] - Antibiotic Education [facility] - Prescription Opioid Use [facility] Prescriptions: - Tessalon Perles 100 mg Oral Capsule - take 1 capsule by ORAL route every 8 hours As needed; 15 capsule; Refills: 0, 7 Product Selection Permitted - Albuterol Sulfate 2.5 mg /3 mL (0.083 %) Inhalation Solution for Nebulization - inhale 1 unit by NEBULIZATION route every 8 hours As needed; 1 box; Refills: 0, mh7 Product Selection Permitted Signatures: Dispatcher [employer] Alexandre Muller FNP-C TELEGRAPHIC TYPEWRITER OPERATOR-Cla1 Yuliya Wiseman, RN RN lg3 Davion Hernandez MD MD 7 Denisse Stevenson RN RN stanton
--- NOTE | 2021-11-27 01:41 | ER ---
Nurse's Notes [facility] Name: Jenni Draper Age: 41 yrs Sex: Female : 1980 Arrival Date: 11/26/2021 Time: 20:47 Bed 20 Private MD: Diya Mora Atiq Diagnosis: Dizziness and giddiness;Bronchitis, not specified as acute or chronic Presentation: 11/26 21:16 Chief complaint: Patient states: SOB, lightheartedness and blurred vision starting lg3 around 1830. states that this happened around 3 years ago and was admitted to ICU for Digoxin toxicity. concerned that this may be the same issue again. Coronavirus screen: Client denies travel out of the [place] in the last 14 days. At this time, the client does not indicate any symptoms associated with coronavirus-19. Ebola Screen: No symptoms or risks identified at this time. Initial Sepsis Screen: Does the patient meet any 2 criteria? HR > 90 bpm. No. Patient's initial sepsis screen is negative. Does the patient have a suspected source of infection? No. Patient's initial sepsis screen is negative. Risk Assessment: Do you want to hurt yourself or someone else? Patient reports no desire to harm self or others. Onset of symptoms was November 26, 2021. 21:16 Method Of Arrival: Wheelchair lg3 21:16 Acuity: LYUBOV 3 lg3 Triage Assessment: 21:20 General: Appears in no apparent distress. uncomfortable, Behavior is calm, cooperative. lg3 Pain: Complains of pain in chest Pain currently is 8 out of 10 on a pain scale. EENT: No deficits noted. No signs and/or symptoms were reported regarding the EENT system. Neuro: No deficits noted. Level of Consciousness is awake, alert, obeys commands, Oriented to person, place, time, situation. Cardiovascular: No deficits noted. Reports chest pain, lightheadedness, nausea, shortness of breath, Heart tones S1 S2 present. Respiratory: Reports shortness of breath cough that is pain with cough Airway is patent Trachea midline Respiratory effort is even, unlabored, Respiratory pattern is regular, symmetrical. Respiratory: Onset: The symptoms/episode began/occurred this morning, the patient has moderate shortness of breath. GI: No deficits noted. No signs and/or symptoms were reported involving the gastrointestinal system. Abdomen is round non-distended. : No deficits noted. No signs and/or symptoms were reported regarding the genitourinary system. Derm: No deficits noted. No signs and/or symptoms reported regarding the dermatologic system. Skin is intact, is healthy with good turgor, Skin is dry. Musculoskeletal: No deficits noted. No signs and/or symptoms reported regarding the musculoskeletal system. Circulation, motion, and sensation intact. Capillary refill < 3 seconds, Range of motion: intact in all extremities. 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 LMP N/A - Hysterectomy lg3 Historical: - Allergies: 21:20 Adhesives; lg3 21:20 Aspirin; lg3 21:20 Bactrim; lg3 21:20 Benadryl; lg3 21:20 Cipro IV; lg3 21:20 Clindamycin; lg3 21:20 coconut oil; lg3 21:20 Detrol; lg3 21:20 Diltiazem; lg3 21:20 Doxycycline; lg3 21:20 FISH PRODUCT DERIVATIVES; lg3 21:20 GABAPENTIN; lg3 21:20 Iodine; lg3 21:20 ivabradine; lg3 21:20 Latex, Natural Rubber; lg3 21:20 Morphine; lg3 21:20 PENICILLINS; lg3 - Home Meds: 21:20 albuterol sulfate 2.5 mg /3 mL (0.083 %) Inhl nebu 3 mL 3 times per day [Active]; lg3 apixaban 5 mg Oral tab 1 tab 2 times per day [Active]; carvedilol 25 mg Oral tab 1 tab 2 times per day [Active]; Crestor 5 mg Oral tab 1 tab once daily [Active]; digoxin 125 mcg (0.125 mg) Oral tab 1 tab once daily [Active]; Keppra 750 mg Oral tab 1 tab [Active]; Lasix 20 mg Oral tab 1 tab [Active]; Nexium 20 mg Oral cpDR 1 cap once daily [Active]; nitroglycerin 0.4 mg Oral [Active]; pregabalin 50 mg Oral cap 1 cap 3 times per day [Active]; Ubrelvy 100 mg Oral tab 1 tab [Active]; venlafaxine 150 mg Oral cp24 1 cap once daily [Active]; Vraylar 3 mg Oral cap 1 cap once daily [Active]; Xanax 0.25 mg Oral tab 1 tab [Active]; - PMHx: 21:20 Asthma; Atrial fibrillation; CVA; Depression; DVT; Hypertensive disorder; Migraine; lg3 Seizure; TIA; - PSHx: 21:20 Ligation of fallopian tube; pace maker placement; Cholecystectomy; right hand cyst lg3 removal; left shoulder; - Immunization history:: Adult Immunizations up to date, Client reports receiving the 2nd dose of the Covid vaccine, Moderna X2. - Social history:: Smoking status: Patient denies any tobacco usage or history of. Patient/guardian denies using alcohol, street drugs. Screenin:26 Abuse screen: Denies threats or abuse. Denies injuries from another. Nutritional lg3 screening: No deficits noted. Tuberculosis screening: No symptoms or risk factors identified. Fall Risk None identified. Assessment: 21:26 Respiratory:. lg3 21:26 General: Appears in no apparent distress. Behavior is calm, cooperative. stanton Cardiovascular: No deficits noted. Respiratory: Airway is patent Respiratory effort is even, unlabored, Respiratory pattern is regular, coughing. 11/27 00:57 Reassessment: Patient appears in no apparent distress at this time. No coughing or SOB stanton since breathing tx. 00:59 Cardiovascular: Rhythm is regular. Respiratory: Breath sounds are clear. stanton 01:23 Reassessment: No changes from previously documented assessment. The pt is in NAD and we stanton are awaiting dispo. Vital Signs: 11/26 21:16 BP 126 / 74; Pulse 102; Resp 19 S; Temp 98.3(TE); Pulse Ox 98% on R/A; Weight 59.42 kg lg3 (R); Height 4 ft. 11 in. (149.86 cm) (R); Pain 7/10; 22:30 BP 113 / 87; Pulse 100; Resp 18; Temp 98.5; Pulse Ox 100% on R/A; Pain 0/10; stanton 22:30 BP 109 / 85; Pulse 102; Resp 16; Pulse Ox 99% on R/A; stanton 23:43 BP 109 / 85 Supine; Pulse 100; stanton 23:43 BP 122 / 95 Sitting; Pulse 103; st[place] 23:43 BP 126 / 85 Standing; Pulse 106; [place] 11/27 00:55 BP 98 / 69; Pulse 98; Resp 16; Pulse Ox 98% on R/A; Pain 0/10; st[place] 01:29 BP 108 / 83; Pulse 98; Resp 18; Pulse Ox 97% on R/A; Pain 0/10; st[place] 01:56 BP 128 / 82; Pulse 90; Resp 18; Temp 98.5; Pulse Ox 100% on R/A; Pain 0/10; stanton 0304 21:16 Body Mass Index 26.46 (59.42 kg, 149.86 cm) lg3 ED Course: 11/26 20:47 Patient arrived in ED. es 20:47 Diya Mora MD is Private Physician. es 21:20 Triage completed. lg3 21:20 Arm band placed on left wrist. lg3 21:26 Bed in low position. Call light in reach. Side rails up X 1. stanton 21:47 Davion Hernandez MD is Attending Physician. [facility] 22:15 Denisse Stevenson, RN is Primary Nurse. stanton 22:28 XRAY Chest (1 view) In Process Unspecified. EDMS 22:35 COVID-19/FLU A+B (Document "Date of Onset" if Symptomatic) Sent. stanton 22:36 Basic Metabolic Panel Sent. [place] 22:36 LFT's Sent. [place] 22:36 Troponin HS Sent. [place] 22:36 NT PRO-BNP Sent. [place] 22:37 Magnesium Sent. stanton 22:44 Urine --Ancillary Sent. stanton 23:14 CT Head Brain wo Cont In Process Unspecified. EDMS 11/27 00:30 Digoxin Sent. [place] 00:30 Urine Drug Screen Sent. [place] 00:31 UDS Sent. stanton 00:59 No provider procedures requiring assistance completed. stanton 01:58 intact, bleeding controlled, No redness/swelling at site. Pressure dressing applied. stanton Administered Medications: 11/26 23:30 Drug: NS 0.9% 500 ml Route: IV; Rate: bolus; Site: left antecubital; st[place] 11/27 00:54 Follow up: IV Status: Completed infusion; IV Intake: 500ml stanton 00:15 Drug: Xopenex (levalbuterol) 1.25 mg Route: Inhalation; stanton 00:51 Follow up: Response: Marked relief of symptoms st[place] 00:15 Drug: SOLU-Medrol (methylPrednisoLONE) 125 mg Route: IVP; Site: left antecubital; stanton 00:52 Follow up: Response: Marked relief of symptoms st[place] Intake: 00:54 IV: 500ml; Total: 500ml. stanton Outcome: 01:00 Condition: stable stanton 01:41 Discharge ordered by . noemy 01:56 Discharged to home ambulatory, with family. stanton 01:56 Discharge instructions given to patient, Instructed on discharge instructions, follow up and referral plans. medication usage, Demonstrated understanding of instructions, follow-up care, medications. 01:58 Patient left the ED. stanton Signatures: Dispatcher [employer] Leelee Heredia Lacie, RN RN lg3 Davion Hernandez MD MD mh7 Denisse Stevenson RN RN stanton
[2021-11-27 02:12] VITALS: TEMP 98.5
[2021-11-27 02:17] VITALS: BP 128/82; O2SAT 100
--- NOTE | 2021-11-27 12:45 | EKG ---
Test Date: 2021-11-26 Test Time: 21:47:00 Barn Operator: HEATHER MEASUREMENT RESULTS: Intervals: Rate: 105 PA: 148 QRSD: 80 QT: 336 QTc: 444 [place]: P: 37 PA: 148 QRS: -1 T: 16 INTERPRETIVE STATEMENTS: Sinus tachycardia Otherwise normal ECG Compared to ECG 11/10/2021 11:57:52 Sinus rhythm no longer present Myocardial infarct finding no longer present Electronically Signed On 11-27-21 12:44:45 STAFF SONOGRAPHER by Nadeem Rajan
--- NOTE | 2021-11-27 21:18 | RAD REPORT ---
EXAM DESCRIPTION: RAD - Chest Single View - 11/26/2021 10:28 pm CLINICAL HISTORY: 41 years Female, Cough;SOB TECHNIQUE: 1 view (Single frontal view of the chest) COMPARISON: 07/03/2020 FINDINGS: LINES AND TUBES: Dual-lead right-sided pacemaker in place. CARDIOVASCULAR STRUCTURES: ormal heart size. No pulmonary venous congestion. LUNGS: No confluent areas of acute consolidation. PLEURA: No layering pleural effusions. No pneumothorax. BONES: No acute osseous abnormality of the thorax. IMPRESSION: 1. No acute cardiopulmonary disease. Electronically signed by: Win Hanley MD 11/26/2021 11:56 PM VICE SQUAD POLICE OFFICER Due to temporary technical issues with the PACS/Fluency reporting system, reports are being signed by the in house radiologists without review as a courtesy to insure prompt reporting. The interpreting radiologist is fully responsible for the content of the report.
--- NOTE | 2021-11-27 22:17 | RAD REPORT ---
EXAM DESCRIPTION: CT - Head Brain Wo Cont - 11/27/2021 6:36 am CLINICAL HISTORY: 41 years Female DIZZINESS COMPARISON: 02/10/2021. TECHNIQUE: Contiguous axial CT images obtained through the brain without IV contrast. This exam was performed according to our department optimization program which includes automated exp osure control, adjustment of the mA and/or kv according to patient size and/or use of iterative recon struction technique. FINDINGS: The ventricles and sulci appear unremarkable. No abnormal areas of decreased density are identified. No mass lesions. No acute hemorrhage. Minimal mucosal thickening in some ethmoid air cells. No depressed calvarial fractures. IMPRESSION: No acute intracranial abnormality is identified. If there is clinical concern for the possibility of acute ischemic change, MRI could be obtained to better evaluate. Electronically signed by: Mauri Vazquez MD 11/26/2021 11:23 PM COMPUTER NETWORKING INSTRUCTOR Due to temporary technical issues with the PACS/Fluency reporting system, reports are being signed by the in house radiologists without review as a courtesy to insure prompt reporting. The interpreting radiologist is fully responsible for the content of the report.
== END 2021-11-27 01:58 | disposition home or self-care (01) ==
LOC: ER 20:44
DX: J40 Bronchitis, not specified as acute or chronic (principal); Z20.822 Contact with and (suspected) exposure to COVID-19; I10 Essential (primary) hypertension; Z95.0 Presence of cardiac pacemaker; Z88.0 Allergy status to penicillin; Z88.1 Allergy status to other antibiotic agents; Z88.3 Allergy status to other anti-infective agents; Z88.5 Allergy status to narcotic agent; Z88.6 Allergy status to analgesic agent; Z88.8 Allergy status to other drugs, medicaments and biological substances; Z91.013 Allergy to seafood; Z91.018 Allergy to other foods; Z91.040 Latex allergy status; Z91.048 Other nonmedicinal substance allergy status
CPT/HCPCS: 96361; 93005; 85025; 80048; 36415; 83735; 81025; 85610; 80162; 80076; 81003; 84484; 83880; 0240U; 80307; 70450; 71045; 96374; 99284; J7040; J2930

== ENCOUNTER 2021-12-17 02:45 | Emergency (ER) | payer OTHER ==
--- OUTSIDE RECORDS SUMMARY | 2021-12-17 02:54 | XMS REPORT | Continuity of Care Document ---
:1980 Author Organization [facility] t Address [address] [place] [address] Care Team Providers Name Role Phone MIMA VELAZQUEZ Primary Care Physician Unavailable ZAKIA VERA Attending Clinician Unavailable Shauna Boone Attending Clinician Unavailable Main SYKES Attending Clinician Unavailable ATANASOV, T Attending Clinician Unavailable JONNY Attending Clinician Unavailable Jonny Hollins MD Attending Clinician Ana ABRAMS Attending Clinician Unavailable Ana Abrams DO Attending Clinician Doctor Unassigned, Name Attending Clinician Unavailable Malena VEGA Attending Clinician Omari RALPH Attending Clinician Unavailable Antonio LARSEN, TMariia Attending Clinician Andrea Bolanos MD Attending Clinician Sho LARSEN Attending Clinician Zakia Vera MD Attending Clinician Unavailable LEONOR Attending Clinician Unavailable LINETTE Attending Clinician Unavailable ZAKIA VERA Admitting Clinician Unavailable Ana ABRAMS Admitting Clinician Unavailable SHO Admitting Clinician Unavailable LEONOR Admitting Clinician Unavailable LINETTE Admitting Clinician Unavailable Payers Payer Name Policy Type Policy Number Effective Expiration Source Date Date GENERIC MEDICAID HMO [id number] 2011 00:00:00 [facility] [id number] 2011 Met amarilys STAR+PLUS [id number] Present[facility] SOLORIO [id number] [address] [facility] MEDICAIDMEDICAID 00:00:00 - Medica l [id number] 018-Present Problems Condition Condition Condition Status Onset Resolution Last Treating Co mments Source Name Details Category Date Date Treatment Clinician Date Elevated Elevated Disease Active Unive rs d-dimer d-dimer - ity of 00:00: [address] Left-sided Left-sided Disease Active [facility] weakness weakness 02-12 [facility] 00 Center Received Received Disease [facility] - [facility] - plasminoge plasminoge 00:00: In dical n n 00 Center activator activator (t-PA) (t-PA) less than less than 24 hours 24 hours prior to prior to arrival arrival Acute Acute Disease Active [facility] ischemic ischemic -20 [facility] - stroke stroke 00:00: Medical 00 [place] Chest pain Chest pain Disease Active U [...] Univers 2-04 ity of 00:00: [place] 00 [facility] PVT PVT Disease Active Univers (paroxysma (paroxysma 2-04 it y of l l 00:00: [place] ventricula ventricula 00 Me dical r r Branch tachycardi tachycardi a) a) Digoxin Digoxin Disease Active Univers toxicity toxicity 2-04 ity of 00:00: [place] [facility] Atrial Atrial Disease Active Univers fibrillati fibrillati 2-04 it y of on on 00:00: [place] 00 [facility] Dyspnea Dyspnea Disease Active 2019 Univers 2-01 ity of 00:00: [place] 00 [facility] Seizure Seizure Disease Active 2018-09 Univers disorder disorder 2-01 ity of 00:00: [place] 00 [facility] Mitral Mitral Disease Active Univers valve valve 8-05 ity of regurgitat regurgitat 00:[place] 00 [facility] Excessive Excessive Disease Active Uni vers anticoagul anticoagul 8-05 it y of ation ation 00:00: [place] 00 [facility] Deep vein Deep vein Disease Active 2019 Uni vers thrombosis thrombosis 8-05 it y of of lower of lower 00:00: [place] extremity extremity 00 [facility] Branch Anxiety Anxiety Disease Active 2019 Univers disorder disorder 8-05 ity of 00:00: [place] 00 [facility] Asthma Asthma Disease Active 2019- Univers 8-05 ity of 00:00: [place] 00 [facility] E44.0 E44.0 Disease Active 2019- Univers Moderate Moderate 5-15 ity of protein protein 00:00: [place] calorie calorie 00 Medical malnutriti malnutriti Br anch on on Paresthesi Paresthesi Disease Active 2017-[address] a of left a of left 1 [facility] - arm and arm and 00:00: Medical leg leg [address] [place] [address] Dysphagia Dysphagia Disease Active 2017-09 Uni vers [...] Added automatic ally from request for surgery [id number] Abdominal Abdominal Disease Active 2017-09 Overview: Univers pain, pain, 0-19 Formattin ity of unspecifie unspecifie 00:00: g of this [place] d d 00 note Medical abdominal abdominal might be Br anch location location different from the original. Added automatic ally from request for surgery [id number] Nausea and Nausea and Disease Active 2017-09 Overview : Univers vomiting, vomiting, 0-19 Formattin i ty of intractabi intractabi 00:00: g of this [place] lity of lity of 00 note Medical vomiting vomiting might be Bran ch not not different specified, specified, from the unspecifie unspecifie original. d vomiting d vomiting Added type type automatic ally from request for surgery [id number] Non-cardia Non-cardia Disease Active U jayden c chest c chest 8-03 ity of pain pain 00:00: [place] [facility] Essential Essential Disease Active Uni vers hypertensi hypertensi 8-03 it y of on on 00:00: Medical [...] nivers s s 2- ity of 00:00: 00 Medical Branch Loss of Loss of Disease Active 2012-09 Univers weight weight 2- ity of 00:00: 00 Medical Branch Hypothyroi Hypothyroi Disease Active 2012-09 Overview : Univers dism dism Formattin ity of 00:00: g of this note Medical might be Branch different from the original. ICD10 Diagnosis Term Sub Arc Operator Utility Hypoglycem Hypoglycem Disease Active 2012-09 Overview : Univers ia ia 10-21 Formattin ity of 00:00: g of this note Medical might be Branch different from the original. ICD10 Diagnosis Term Sub Arc Operator Utility Cerebrovas Cerebrovas Disease Resolve 2021-02-12 [...] [place] mide 00:00: d Antibiot [address] [facility] Center Fish FA Active SV [facility] [...] Center cefixime DA Active MO 2020-0 [facility] [place] 00:00: d 00 Medical Center doxycycl DA Active SV 2020-0 [facility] ine 09-28 [place] 00:00: d 00 [facility] Center clindamy DA Active MO 2020-0 [facility] stephan 09-28 [place] 00:00: d 00 Medical Center sulfamet DA Active MO 2020-0 [facility] hoxazole 09-28 [place] 00:00: d 00 Medical Center trimetho DA Active MO 2020-0 [facility] prim 09-28 [place] 00:00: d 00 [facility] Center ciproflo DA Active SV 2020-0 [facility] xacin 09-28 [place] 00:00: d 00 Medical Center adhesive DA Active SV 2020-0 [facility] tape 09-28 [place] 00:00: d 00 [facility] tramadol DA Active SV 2020-0 [facility] [place] 00:00: d 00 [facility] gabapent DA Active SV 2020-0 [facility] in 09-28 [place] 00:00: d 00 Medical Center diltiaze DA Active SV 2020-0 [facility] m 09-28 [place] 00:00: d 00 [facility] Center diphenhy DA Active SV 2020-0 [facility] dramine 09-28 [place] 00:00: d 00 Medical Center topirama DA Active SV 2020-0 [facility] te 09-28 [place] 00:00: d 00 [facility] Center levoflox DA Active SV 2020-0 [facility] acin 09-28 [place] 00:00: d 00 [facility] Center quetiapi DA Active MO 2020-0 [facility] ne 09-28 [place] 00:00: d 00 [facility] Center tolterod DA Active MO 2020-0 [facility] ine 09-28 [place] 00:00: d 00 Medical Center latex DA Active SV 2020-0 [facility] [place] 00:00: d 00 [facility] Center ivabradi DA Active MO 1-0 [facility] ne 09-28 [place] 00:00: d 00 [facility] Center coconut FA Active MO 1-0 [facility] 09-28 [place] 00:00: d 00 Medical Center Penicill DA Active SV ANAPHYLAXIS 2020-0 [facility] ins SHOCH 09-28 [place] 00:00: d 00 Medical Center Sulfa DA Active MO RASH 2020-0 [facility] (Sulfona 09-28 [place] mide 00:00: d Antibiot 00 Medical [facility] Center Fish FA Active SV ANAPHYLAXIS 2020-0 [facility] Containi SHOCK 1-04 [place] ng 00:00: d Products 00 Medical Center iodine DA Active MO RASH 2020-0 [facility] 1-04 [place] 00:00: d 00 Medical Center morphine DA Active SV ANAPHYLAXIS 2020-0 [facility] SHOCK -04 [place] 00:00: d 00 Medical Center aspirin DA Active SV ANAPHYLAXIS 2020-0 [facility] SHOCK -04 [place] 00:00: d 00 [facility] Center cephalex DA Active SV HIVES 2020-0 [facility] in 1-04 [place] 00:00: d 00 [facility] Center cefixime DA Active MO HIVES 2020-0 [facility] 1-04 [place] 00:00: d 00 [facility] doxycycl DA Active SV RASH 2020-0 [facility] ine 1-04 [place] 00:00: d 00 [facility] Center clindamy DA Active MO RASH 2020-0 [facility] stephan 1-04 [place] 00:00: d 00 [facility] Center sulfamet DA Active MO RASH 2020-0 [facility] hoxazole 1-04 [place] 00:00: d 00 [facility] trimetho DA Active MO RASH 2020-0 [facility] prim 1-04 [place] 00:00: d 00 [facility] ciproflo DA Active SV HIVES 2020-0 [facility] xacin 1-04 [place] 00:00: d 00 [facility] adhesive DA Active SV BLISTERS 2020-0 [facility] tape 1-04 [place] 00:00: d 00 [facility] tramadol DA Active SV HIVES 2020-0 [facility] 1-04 [place] 00:00: d 00 [facility] gabapent DA Active SV RASH 2020-0 [facility] in 1-04 [place] 00:00: d 00 Medical Center diltiaze DA Active SV SHORTNESS OF 2020-0 HC A m BREATH 1-04 [place] 00:00: d 00 Medical Center diphenhy DA Active SV RASH 2020-0 [facility] dramine 1-04 [place] 00:00: d 00 Medical Center topirama DA Active SV HIVES/MEMORY 2020-0 HC A te LOSS - [place] 00:00: d 00 [facility] levoflox DA Active SV HIVES 2020-0 [facility] acin 1-04 [place] 00:00: d 00 Medical Center quetiapi DA Active MO RASH 2020-0 [facility] ne 1-04 [place] 00:00: d 00 Medical [facility] tolterod DA Active MO RASH [facility] ine 1-04 [place] 00:00: d 00 [facility] latex DA Active SV BLISTERS [facility] 1-04 [place] 00:00: d 00 [facility] ivabradi DA Active MO RASH [facility] ne 1-04 [place] 00:00: d 00 [facility] coconut FA Active MO RASH [facility] 1-04 [place] 00:00: d 00 [facility] Topirama Propensi Active Anaphylaxis 2019-0 M [...] Medical Branch Diltiaze Propensi Active Shortness Of 2019-0 Methodi m ty to Breath [facility] [facility] adverse 00:00: Hospita reaction 00 l s to drug Diltiaze Propensi Active Shortness of 2019-0 Univers m ty to Breath 9-05 ity of adverse 00:00: [place] reaction 00 Medical s Branch DILTIAZE DRUG Active Med SOB 2019-0 Univers M INGREDI 9-05 ity of 00:00: [place] 00 Medical Branch Cephalex Propensi Active Anaphylaxis 2019-0 M ethodi in ty to 8-05 st adverse 00:00: Hospita reaction 00 l s to drug Doxycycl Propensi Active Rash Method i ine ty to 805 st adverse 00:00: Hospita reaction 00 l s to drug Levoflox Propensi Active Anaphylaxis 2019-0 M ethodi acin ty to 805 st adverse 00:00: Hospita reaction 00 l s to drug Cefixime Propensi Active Rash 2018-0 Univer s ty to 805 ity of adverse 00:00: [place] reaction 00 Medical s Branch Doxycycl Propensi Active Rash 0 Univer s ine ty to 05 ity of adverse 00:00: [place] reaction 00 Medical s Branch Fish Propensi Active Anaphylaxis 2018-0 Family Uni vers Containi ty to 05 history ity of ng adverse 00:00: of [place] Products reaction 00 allergic Medi blane s reaction. Branch FISH Drug Active High Anaphylaxis Unive rs CONTAINI Class 805 ity of NG 00:00: [place] PRODUCTS 00 Medical Branch DOXYCYCL DRUG Active Rash 2018- Univers INE INGREDI 8-05 ity of 00:00: [place] 00 Medical Branch CEFIXIME DRUG Active Low Rash 2018- Univers INGREDI 8-05 ity of 00:00: [place] 00 Medical Branch CEFIXIME Allergy Active Low Rash 2017-09 [facility] 10-17 00:00: 00 TRAMADOL Allergy Active Low Rash 2017-09 [facility] 10-17 00:00: 00 SULFAMET Allergy Active High Anaphylaxis 2017-09 [facility] HOXAZOLE 10-17 -TRIMETH 00:00: OPRIM 00 GABAPENT Allergy Active High Sob 2017-09 [facility] IN 10-17 00:00: 00 IODINE Allergy Active High Rash 2017-09 [facility] AND 10-17 IODIDE 00:00: CONTAINI 00 NG PRODUCTS MORPHINE Allergy Active High Anaphylaxis 2017-09 [facility] 10-17 00:00: 00 PENICILL Allergy Active High Anaphylaxis 2017-09 [facility] INS 10-17 00:00: 00 DIPHENHY Allergy Active N\\T\\V 2017-09 SLE DRAMINE 10-17 HCL 00:00: 00 CIPROFLO Allergy [...] - Hcl adverse 00:00: Medical reaction 00 [facility] Ciproflo Propensi Active 2017-[address] xacin ty to 10-17 aches. [facility] - adverse 00:00: Medical reaction 00 [facility] Clindamy Propensi Active Rash 2017-[address] stephan ty to 10-17 [facility] - adverse 00:00: Medical reaction 00 [facility] s Tolterod Propensi Active Rash 2017-[address] ine ty to 10-17 [facility] - adverse 00:00: Medical reaction 00 [facility] s Gabapent Propensi Active Shortness Of 2017-[address] in ty to Breath, Rash 10-17 [facility] s - adverse 00:00: Medical reaction 00 [facility] Iodine Propensi Active Rash 2017-[address] And ty to 10-17 [facility] - Iodide adverse 00:00: Medical Containi reaction 00 [facility] s Products Latex Propensi Active Rash 2017-[address] ty to 10-17 [facility] - adverse 00:00: Medical reaction 00 [facility] s Morphine Propensi Active Anaphylaxis 2017-[address] ty to 10-17 [facility] - adverse 00:00: Medical reaction 00 [facility] s Penicill Propensi Active Anaphylaxis 2017-[address] ins ty to 10-17 [facility] - adverse 00:00: Medical reaction 00 [facility] s Quetiapi Propensi Active 2017-[address] ne ty to 10-17 [facility] - adverse 00:00: Medical reaction 00 [facility] Sulfa Propensi Active Rash 2017-[address] (Sulfona ty to 10-17 [facility] - mide adverse 00:00: Medical Antibiot reaction 00 [facility]) s Cefixime Propensi Active Rash 2017-[address] ty to 10-17 [facility] - adverse 00:00: Medical reaction 00 [facility] s Tramadol Propensi Active Rash 2017-[address] ty to 10-17 [facility] - adverse 00:00: Medical reaction 00 [place] s QUETIAPI Allergy Active 2017-09 [facility] NE 10-17 00:00: 00 Cefixime Propensi Active Rash 2017-09 Method i ty to 10-17 st adverse 00:00: Hospita reaction 00 s to drug Sulfamet Propensi Active Rash [...] 00 ICS) Coconut Propensi Active Rash 2017-09 Methodi ty to 10-04 st adverse 00:00: Hospita reaction 00 l s to drug Coconut Propensi Active Rash 2017-09 Methodi Oil ty to 10-04 st adverse 00:00: Hospita reaction 00 l s to drug Other Propensi Active Swelling 2017-09 Family Method i ty to 10-[address] adverse 00:00: of Hospita reaction 00 allergic l s reaction. Coconut Propensi Active Rash 2017-09 Univers ty [...] ity of 00:00: [place] 00 Medical Branch Clindamy Propensi Active Rash Method i stephan ty to 4-12 st adverse 00:00: Hospita reaction 00 l s to drug Diphenhy Propensi Active Hives Univer s dramine ty to 4-12 ity of Hcl adverse 00:00: [place] reaction 00 Medical s Branch Clindamy Propensi Active Rash Univer s stephan ty to 4-12 ity of adverse 00:00: [place] reaction 00 Medical s Branch Gabapent Propensi Active Rash Univer s in ty to 4-12 ity of adverse 00:00: [place] reaction 00 Medical s Branch Diphenhy Propensi Active Other (See Me thodi dramine ty to Comments) 12 st adverse 00:00: Hospita reaction 00 l s to drug Iodine Propensi Active Rash 2018-0 Univers ty to 4-12 ity of adverse 00:00: [place] reaction 00 Medical s Branch DIPHENHY DRUG Active Hives 2018-0 Univers DRAMINE INGREDI -12 ity of HCL 00:00: [place] 00 Medical Branch CLINDAMY DRUG Active Rash 2018-0 Univers STEPHAN INGREDI - ity of 00:00: [place] [facility] GABAPENT DRUG Active Rash 2018-0 Univers IN INGREDI -12 ity of 00:00: [place] 00 Medical Branch IODINE DRUG Active Rash 2018-0 Univers INGREDI -12 ity of 00:00: [place] [facility] Gabapent Propensi [place] [address] Methodi in ty to Breath 01-04 st adverse 00:00: Hospita reaction 00 l s to drug Iodine Propensi Active Rash 0 Methodi And ty to 01-04 st Iodide adverse 00:00: Hospita Containi reaction 00 l ng s to Products drug Morphine Propensi Active Anaphylaxis 2017- U nivers ty to 0-05 ity of adverse 00:00: [place] reaction 00 Medical Branch MORPHINE DRUG Active High Anaphylaxis 2017- Uni vers INGREDI 0-05 ity of 00:00: [place] [facility] Morphine Propensi Active Anaphylaxis 2017- M ethodi ty to 005 st adverse 00:00: Hospita reaction 00 l s to drug Tramadol Propensi Active Unknown - 2017 Rash Uni vers ty to See comments 06-22 ity of adverse 00:00: [place] reaction 00 Medical Branch TRAMADOL DRUG Active Unknown-Cmnt 2017 Un [place] INGREDI 06-22 ity of 00:00: [place] 00 Medical Branch Tramadol Propensi Active Rash 201[address] Rash Rash Met hodi ty to 06-22 st adverse 00:00: Hospita reaction 00 l s to drug Ciproflo Propensi Active Other - See Muscle U nivers xacin ty to comments 04-20 aches ity of adverse 00:00: [place] reaction 00 Medical s Branch Quetiapi Propensi Active Rash 2015- Univer s ne ty to 04-20 ity [...] Stop Date Quantity Comments Source History [facility] Exposure to Not sure University of SARS-CoV-2 (event) [facility] Alcohol intake 2021-10-22 2021-10-22 [facility] of 00:00:00 00:00:00 non-drinker of [facility] alcohol Branch (finding) Education 2021-03-25 2021-03-[address] [place] [address] of 00:00:00 00:00:00 [place] [facility] History SDOH 2019-10-29 2019-10-29 5 University o f Financial 00:00:00 00:00:00 [place] [facility] History SDVT Food 2019-10-29 2019-10-29 1 Univers ity of Worry 00:00:00 00:00:00 [place] [facility] History SDVT Food 2019-10-29 2019-10-29 1 Univers ity of Scarcity 00:00:00 00:00:00 [place] [facility] History [facility] 2019-10-29 2019-10-29 2 University o f Transport Med 00:00:00 00:00:00 [place] Medic al Branch History [facility] 2019-10-29 2019-10-29 2 University o f Transport Non-Med 00:00:00 00:00:00 [place] M edical Branch History [facility] 2018-09-05 2018-09-05 1 [facility] Frequency 00:00:00 00:00:00 Hospita l Cigarettes smoked 2018-04-27 2018-04-27 Univers ity of current (pack per 00:00:00 00:00:00 [facility] ) - Reported Branch Cigarette 2018-04-27 2018-04-27 University of pack-years 00:00:00 00:00:00 [facility] Tobacco use and 2018-04-27 2018-04-27 Never used Universit y of exposure 00:00:00 00:00:00 [facility] Tobacco Comment 2018-04-27 2018-04-27 quit 16 years Univer sity of 00:00:00 00:00:00 ago [facility] History of tobacco 2003-05-09 Smoker Univer sity of use 00:00:00 [facility] [birth year] Universit y of 00:00:00 00:00:00 [facility] Smoking Status Start Date Stop Date Source Former smoker 2018-04-27 00:00:00 2018-04-27 00:00:00 Universi ty of [facility] Medications Ordered Filled Start Stop Current Ordering Indication Dosage Frequency Signature Comments Components Source Medication Medication Date Date Medication? Clinician (SIG) Name Name levETIRAcet 2021-0 Yes [id number] 750mg Take 1 Univers am 750 mg 3-24 tablet by ity o f tablet 00:00: mouth 2 [place] 00 (two) Medical times Branch daily. metoclopram No 10mg 10 mg, Uni vers christian HCl 12-09 Slow IV ity of (REGLAN) 10:00: 08:53 Push, [place] injection 00 :00 ONCE, 1 Medical 10 mg dose, On Branch Joellen 12/09/21 at 0500, GIGI tiotropium 0 Yes [id number] 1{puff} Inhale 1 Univers bromide 3-14 Puff ity of (SPIRIVA 00:00: daily. [place] RESPIMAT) 00 Medical 2.5 Branch mcg/actuati on Mist tiotropium 0 Yes [id number] 1{puff} Inhale 1 Univers bromide 3-14 Puff ity of (SPIRIVA 00:00: daily. [place] RESPIMAT) 00 Medical 2.5 Branch mcg/actuati on Mist tiotropium 0 Yes [id number] 1{puff} Inhale 1 Univers bromide 3-14 Puff ity of (SPIRIVA 00:00: daily. [place] RESPIMAT) 00 Medical 2.5 Branch mcg/actuati on Mist tiotropium 0 Yes [id number] 1{puff} Inhale 1 Univers bromide 3-14 Puff ity of (SPIRIVA 00:00: daily. [place] RESPIMAT) 00 Medical 2.5 Branch mcg/actuati on Mist tiotropium 0 Yes [id number] 1{puff} Inhale 1 Univers bromide 3-14 Puff ity of (SPIRIVA 00:00: daily. [place] RESPIMAT) 00 Medical 2.5 Branch mcg/actuati on Mist BENZONATATE 0 Yes [id number] TAKE 1 Univers 100 mg 3-04 CAPSULE BY ity of capsule 00:00: MOUTH [place] [address] THREE Medical TIMES Branch DAILY NEEDED FOR COUGH BENZONATATE 2021-0 Yes [id number] TAKE 1 Univers 100 mg 3-04 CAPSULE BY ity of capsule 00:00: MOUTH [place] [address] THREE Medical TIMES Branch DAILY NEEDED FOR COUGH BENZONATATE 2021-0 Yes [id number] TAKE 1 Univers 100 mg 3-04 CAPSULE BY ity of capsule 00:00: MOUTH [place] [address] THREE Medical TIMES Branch DAILY NEEDED FOR COUGH BENZONATATE 2021-0 Yes [id number] TAKE 1 Univers 100 mg 3-04 CAPSULE BY ity of capsule 00:00: MOUTH [place] 00 THREE Medical TIMES Branch DAILY NEEDED FOR COUGH BENZONATATE 0 Yes [id number] TAKE 1 Univers 100 mg 3-04 CAPSULE BY ity of capsule 00:00: MOUTH [place] 00 THREE Medical TIMES Branch DAILY NEEDED FOR COUGH ALPRAZolam 0 Yes [id number] .25mg Take 0.25 Univers (XANAX) 2-11 mg [...] daily Branch before breakfast and dinner. ALPRAZolam 0 Yes [id number] .25mg Take 0.25 Univers (XANAX) 2-11 mg [...] before breakfast and dinner. ALPRAZolam 2021-0 Yes [id number] .25mg Take 0.25 Univers (XANAX) 2-11 mg by ity of 0.25 mg 11:24: mouth at [place] tablet 16 bedtime as Medical needed. Branch pregabalin 0 Yes 50mg Take 50 mg U nivers (LYRICA) 50 2-11 by mouth ity of mg capsule 11:24: at [place] 16 bedtime. Medical Branch esomeprazol 2021-0 Yes 20mg Take 20 mg Univers e (NEXIUM) 2-11 by mouth 2 ity of 20 mg 11:24: (two) [place] capsule 16 times Medical daily Branch before breakfast and dinner. ALPRAZolam 2021-0 Yes [id number] .25mg Take 0.25 Univers (XANAX) 2-11 mg by ity of 0.25 mg 11:24: mouth at [place] tablet 16 bedtime as Medical needed. Branch pregabalin 2021-0 Yes 50mg Take 50 mg U nivers (LYRICA) 50 2-11 by mouth ity of mg capsule 11:24: at [place] 16 bedtime. Medical Branch esomeprazol 2021-0 Yes 20mg Take 20 mg Univers e (NEXIUM) 2-11 by mouth 2 ity of 20 mg 11:24: (two) [place] capsule 16 times Medical daily Branch before breakfast and dinner. ALPRAZolam 2021-0 Yes [id number] .25mg Take 0.25 Univers (XANAX) 2-11 mg [...] before breakfast and dinner. azithromyci 2021-0 Yes [id number] 250mg Take 1 Univers n 250 mg 2-08 tablet by ity of tablet 00:00: mouth [place] 00 daily. Medical Branch azithromyci 2021-0 Yes [id number] 250mg Take 1 Univers n 250 mg 2-08 tablet by ity of tablet 00:00: mouth [place] 00 daily. Medical Branch azithromyci 2021-0 Yes [id number] 250mg Take 1 Univers n 250 mg 2-08 tablet by ity of tablet 00:00: mouth [place] 00 daily. Medical Branch azithromyci 2021-0 Yes [id number] 250mg Take 1 Univers n 250 mg 2-08 tablet by ity of tablet 00:00: mouth [place] 00 daily. Medical Branch azithromyci 2021-0 Yes [id number] 250mg Take 1 Univers n 250 mg 2-08 tablet by ity of tablet 00:00: mouth [place] 00 daily. Medical Branch chlorphenir 2022-0 Yes [id number] 4mg Take 1 Univers amine 4 mg 1-05 tablet by ity of tablet 00:00: mouth [place] 00 every 6 Medical (six) Branch hours as needed for Allergies or Runny nose. calcium/mag 2022-0 Yes [id number] 1{each} Take 1 Univers nesium/zinc 1-05 Each by ity o f (CALCIUM-MA 00:00: mouth [place] GNESUIUM-ZI 00 daily. Medica l [place]) Branch 333-133-5 mg Tab benzonatate 2-0 Yes [id number] 100mg Take 1 Univers 100 mg 1-05 capsule by ity of capsule 00:00: mouth 3 [place] 00 (three) Medical times Branch daily as needed for Cough. chlorphenir 2022-0 Yes [id number] 4mg Take 1 Univers amine 4 mg 1-05 tablet by ity of tablet 00:00: mouth [place] 00 every 6 Medical (six) Branch hours as needed for Allergies or Runny nose. calcium/mag 2-0 Yes [id number] 1{each} Take 1 Univers nesium/zinc 1-05 Each by ity o f (CALCIUM-MA 00:00: mouth [place] GNESUIUM-ZI [address]) Branch 333-133-5 mg Tab benzonatate 2-0 Yes [id number] 100mg Take 1 Univers 100 mg 1-05 capsule by ity of capsule 00:00: mouth 3 [place] 00 (three) Medical times Branch daily as needed for Cough. chlorphenir 2022-0 Yes [id number] 4mg Take 1 Univers amine 4 mg 1-05 tablet by ity of tablet 00:00: mouth [place] 00 every 6 Medical (six) Branch hours as needed for Allergies or Runny nose. calcium/mag 2022-0 Yes [id number] 1{each} Take 1 Univers nesium/zinc 1-05 Each by ity o f (CALCIUM-MA 00:00: mouth [place] GNESUIUM-ZI 00 daily. Medica l [place]) Branch 333-133-5 mg Tab benzonatate 2022-0 Yes [id number] 100mg Take 1 Univers 100 mg 1-05 capsule by ity of capsule 00:00: mouth 3 [place] 00 (three) Medical times Branch daily as needed for Cough. chlorphenir 0 Yes [id number] 4mg Take 1 Univers amine 4 mg 1-05 tablet by ity of tablet 00:00: mouth [place] 00 every 6 Medical (six) Branch hours as needed for Allergies or Runny nose. calcium/mag 0 Yes [id number] 1{each} Take 1 [facility] nesium/zinc 1-05 Each by ity o f (CALCIUM-MA 00:00: mouth [place] GNESUIUM-ZI [address]) Branch 333-133-5 mg Tab benzonatate 0 Yes [id number] 100mg Take 1 [facility] 100 mg 1-05 capsule by ity of capsule 00:00: mouth 3 00 (three) Medical times Branch daily as needed for Cough. chlorphenir Yes [id number] 4mg Take 1 [facility] amine 4 mg 1-05 tablet by ity of tablet 00:00: mouth [place] 00 every 6 Medical (six) Branch hours as needed for Allergies or Runny nose. calcium/mag Yes [id number] 1{each} Take 1 [facility] nesium/zinc 1-05 Each by ity o f (CALCIUM-MA 00:00: mouth [place] GNESUIUM-ZI [address]) Branch 333-133-5 mg Tab benzonatate Yes [id number] 100mg Take 1 [facility] 100 mg 1-05 capsule by ity of capsule 00:00: mouth 3 00 (three) Medical times Branch daily as [...] 00 daily. Medical Branch albuterol 2020-09 Yes [id number] 1.25mg Inhale 1.5 Univers 2.5 mg /3 1-11 mL every 4 ity of mL (0.083 00:00: (four) [place] %) 00 hours. Medical nebulizer Branch solution albuterol 2020-09 Yes [id number] 1.25mg Inhale 1.5 Univers 2.5 mg /3 1-11 mL every 4 ity of mL (0.083 00:00: (four) [place] %) 00 hours. Medical nebulizer Branch solution albuterol 2020-09 Yes [id number] 1.25mg Inhale 1.5 Univers 2.5 mg /3 1-11 mL every 4 ity of mL (0.083 00:00: (four) [place] %) 00 hours. Medical nebulizer Branch solution albuterol 2020-09 Yes [id number] 1.25mg Inhale 1.5 Univers 2.5 mg /3 1-11 mL every 4 ity of mL (0.083 00:00: (four) [place] %) 00 hours. Medical nebulizer Branch solution albuterol 2020-09 Yes [id number] 1.25mg Inhale 1.5 Univers 2.5 mg /3 1-11 mL every 4 ity of mL (0.083 00:00: (four) [place] %) 00 hours. Medical nebulizer Branch solution albuterol 2020-09 Yes [id number] 2{puff} Inhale 2 Univers 90 1-05 Puffs ity of mcg/actuati 00:00: every 6 [place] as on inhaler 00 (six) Medical hours as Branch needed for Wheezing or Shortness of Breath. albuterol 2020-09 Yes [id number] 2{puff} Inhale 2 Univers 90 1-05 Puffs ity of mcg/actuati 00:00: every 6 [place] as on inhaler 00 (six) Medical hours as Branch needed for Wheezing or Shortness of Breath. albuterol 2020-09 Yes [id number] 2{puff} Inhale 2 Univers 90 1-05 Puffs ity of mcg/actuati 00:00: every 6 [place] as on inhaler 00 (six) Medical hours as Branch needed for Wheezing or Shortness of Breath. albuterol 2020-09 Yes [id number] 2{puff} Inhale 2 Univers 90 1-05 Puffs ity of mcg/actuati 00:00: every 6 [place] as on inhaler 00 (six) Medical hours as Branch needed for Wheezing or Shortness of Breath. albuterol 2020-09 Yes [id number] 2{puff} Inhale 2 Univers 90 1-05 Puffs ity of mcg/actuati 00:00: every 6 [place] as on inhaler 00 (six) Medical hours as Branch needed for Wheezing or Shortness of Breath. carvediloL 2020-09 Yes 25mg Take 1 Unive rs 25 mg 0-27 tablet by ity of tablet 00:00: mouth [place] (two) Medical times Branch daily with meals. carvediloL 2020-09 Yes 25mg Take 1 Unive rs 25 mg 0-27 tablet by ity of tablet 00:00: mouth [place] (two) Medical times Branch daily with meals. carvediloL 2020-09 Yes 25mg Take 1 Unive rs 25 mg 0-27 tablet by ity of tablet 00:00: mouth [place] (two) Medical times Branch daily with meals. carvediloL 2020-09 Yes 25mg Take 1 Unive rs 25 mg 0-27 tablet by ity of tablet 00:00: mouth [place] (two) Medical times Branch daily with meals. carvediloL 2020-09 Yes 25mg Take 1 Unive rs 25 mg 0-27 tablet by ity of tablet 00:00: mouth [place] (two) Medical times Branch daily with meals. ubrogepant 2020-09 Yes [id number] 100mg Take 100 Univers (UBRELVY) 0-19 mg by ity of 100 mg Tab 00:00: mouth as [place] as 00 needed Medical (migraine) Branch . Take at onset of migraine, repeat x1 in 2h if headache remains ubrogepant 2020-09 Yes [id number] 100mg Take 100 Univers (UBRELVY) 0-19 mg by ity of 100 mg Tab 00:00: mouth as [place] as 00 needed Medical (migraine) Branch . Take at onset of migraine, repeat x1 in 2h if headache remains ubrogepant 2020-09 Yes [id number] 100mg Take 100 Univers (UBRELVY) 0-19 mg by ity of 100 mg Tab 00:00: mouth as [place] as 00 needed Medical (migraine) Branch . Take at onset of migraine, repeat x1 in 2h if headache remains ubrogepant 2020-09 Yes [id number] 100mg Take 100 Univers (UBRELVY) 0-19 mg by ity of 100 mg Tab 00:00: mouth as [place] as 00 needed Medical (migraine) Branch . Take at onset of migraine, repeat x1 in 2h if headache remains ubrogepant 2020-09 Yes [id number] 100mg Take 100 Univers (UBRELVY) 0-19 mg by ity of 100 mg Tab 00:00: mouth as [place] as 00 needed Medical (migraine) Branch . Take at onset of migraine, repeat x1 in 2h if headache remains nitroglycer 2020-[id number] 1 Univers in 0.4 mg 0-10 tablet ity of sublingual 00:00: under the [place] tablet 00 tongue Medical every 5 Branch (five) minutes as needed for Chest pain. nitroglycer 2020-[id number] 1 Univers in 0.4 mg 0-10 tablet ity of sublingual 00:00: under the [place] tablet 00 tongue Medical every 5 Branch (five) minutes as needed for Chest pain. nitroglycer 2020-[id number] 1 Univers in 0.4 mg 0-10 tablet ity of sublingual 00:00: under the [place] tablet 00 tongue Medical every 5 Branch (five) minutes as needed for Chest pain. nitroglycer 2020-[id number] 1 Univers in 0.4 mg 0-10 tablet ity of sublingual 00:00: under the [place] tablet 00 tongue Medical every 5 Branch (five) minutes as needed for Chest pain. nitroglycer 2020-[id number] 1 Univers in 0.4 mg 0-10 tablet ity of sublingual 00:00: under the [place] tablet 00 tongue Medical every 5 Branch (five) minutes as needed for Chest pain. VRAYLAR 3 Yes 1{capsu Take 1 Uni vers mg Cap 8-25 le} capsule by ity of 00:00: mouth at [place] [address] bedtime. Medical Branch VRAYLAR 3 Yes 1{capsu Take 1 Uni vers mg Cap 8-25 le} capsule by ity of 00:00: mouth at [place] [address] bedtime. Medical Branch VRAYLAR 3 Yes 1{capsu Take 1 Uni vers mg Cap 8-25 le} capsule by ity of 00:00: mouth at [place] [address] bedtime. Medical Branch VRAYLAR 3 2020-0 Yes 1{capsu Take 1 Uni vers mg Cap 8-25 le} capsule by ity of 00:00: mouth at [place] [address] bedtime. Medical Branch VRAYLAR 3 2020-0 Yes 1{capsu Take 1 Uni vers mg Cap 8-25 le} capsule by ity of 00:00: mouth at [place] [address] bedtime. Medical Branch albuterol Yes [id number] 2.5mg Inhale 3 Univers 2.5 mg /3 8-05 mL every 6 ity of mL (0.083 00:00: (six) [place] %) 00 hours as Medical nebulizer needed for Bran ch solution Wheezing or Shortness of Breath. albuterol Yes [id number] 2.5mg Inhale 3 Univers 2.5 mg /3 8-05 mL every 6 ity of mL (0.083 00:00: (six) [place] %) 00 hours as Medical nebulizer needed for Bran ch solution Wheezing or Shortness of Breath. albuterol Yes [id number] 2.5mg Inhale 3 Univers 2.5 mg /3 8-05 mL every 6 ity of mL (0.083 00:00: (six) [place] %) 00 hours as Medical nebulizer needed for Bran ch solution Wheezing or Shortness of Breath. albuterol Yes [id number] 2.5mg Inhale 3 Univers 2.5 mg /3 8-05 mL every 6 ity of mL (0.083 00:00: (six) [place] %) 00 hours as Medical nebulizer needed for Bran ch solution Wheezing or Shortness of Breath. albuterol Yes [id number] 2.5mg Inhale 3 Univers 2.5 mg /3 8-05 mL every 6 ity of mL (0.083 00:00: (six) [place] %) 00 hours as Medical nebulizer needed for Bran ch solution Wheezing or Shortness of Breath. apixaban Yes 5mg Take 1 Univers (ELIQUIS) 5 [...] ity of mg tablet 00:00: mouth 2 [place] (two) Medical times Branch daily. Indication s: Recurrent DVT apixaban 2020-0 Yes 5mg Take 1 Univers (ELIQUIS) 5 7-14 tablet by ity of mg tablet 00:00: mouth [place] (two) Medical times Branch daily. Indication s: [...] blister with device powder for inhalation fluticasone 2020-2020- No 1{puff} Q.5D Inhale 1 [facility] propionate 624 06-[address] (FLOVENT 22:52: 00:00 (two) [facility] HFA) 110 47 :00 times a l mcg/actuati day. on inhaler benztropine 2021-0 Yes 1mg Q.5D Take 1 mg M [...] day. l ophthalmic emulsion albuterol Yes 1{ampul Q.[id number] Take 1 [facility] (ACCUNEB) 6-24 e} [id number] ampule by st 1.25 mg/3 22:52: 3D nebulizati Ho spita mL 44 on 3 l nebulizer (three) solution times a day. esomeprazol 2020- No 20mg QD Take 20 mg [facility] (NexIUM) -03-[address] 20 MG 20:19: 00:00 daily Hospita capsule 48 :00 before l breakfast. ARIPiprazol 2020- No 5mg QD Take 5 mg [facility] (ABILIFY) -03-[address] 5 MG tablet 01:39: 00:00 daily. Hos elenita 34 :00 l ARIPiprazol 2020- No 10mg QD Take 10 mg [facility] (ABILIFY) -18 03- by mouth st 10 MG 01:39: 00:00 [...] QD Take 1 Met hodi e (NexIUM) 03-18-[address] 40 MG 00:00: 04:59 (40 [...] package st (Medrol, 00:00: 04:59 directions Ho bubba Gandara,) 4 mg 00 :00 l tablet promethazin 2020- No 12.5mg Q6H Take 1 M ethodi e 03-18-[address] (PHENERGAN) 00:00: 04:59 (12.5 mg H ospita 12.5 MG 00 :00 total) by l tablet mouth every 6 (six) hours as needed for nausea or vomiting for up to 3 days. fluticasone Yes [id number] 1{puff} Inhale 1 Univers furoate-natan 6-02 Puff ity of anteroL 00:00: daily. [address]) Branch 200-25 mcg/dose DsDv fluticasone Yes [id number] 1{puff} Inhale 1 Univers furoate-natan 6-02 Puff ity of anteroL 00:00: daily. [address]) Branch 200-25 mcg/dose DsDv fluticasone Yes [id number] 1{puff} Inhale 1 Univers furoate-natan 6-02 Puff ity of anteroL 00:00: daily. [address]) Branch 200-25 mcg/dose DsDv fluticasone Yes [id number] 1{puff} Inhale 1 Univers furoate-natan 6-02 Puff ity of anteroL 00:00: daily. [place] (BRE [facility]) Branch 200-25 mcg/dose DsDv fluticasone Yes [id number] 1{puff} Inhale 1 Univers furoate-natan 6-02 Puff ity of anteroL 00:00: daily. [place] ([facility]) Branch 200-25 mcg/dose DsDv ALPRAZolam Yes .25mg [...] MG 14:04: mouth Medical tablet 46 daily. [place] venlafaxine Yes 150mg QD Take [address] (EFFEXOR-XR 5-21 [facility] ) 150 MG 24 14:04: mouth Medic al hr capsule 46 daily. [place] apixaban Yes 5mg QD Take [address] [facility] (ELIQUIS) 5 5-21 by mouth [facility] - mg Tab 14:04: daily. Medical tablet 46 [place] levETIRAcet Yes 1000mg Q.5D Take 1,[address] [facility] am (KEPPRA) 5-21 mg by [facility] - 1000 MG 14:04: mouth 2 Medical tablet 46 (two) Center times daily. loratadine Yes 10mg QD Take [address] (CLARITIN) 5-21 by mouth [facility] - 10 mg 14:04: daily. Medical tablet 46 [place] pregabalin Yes 50mg QD Take [address] (LYRICA) 25 5-21 by mouth Luke s - MG capsule 14:04: nightly . Me dical 46 [place] esomeprazol Yes 40mg QD Take 40 mg [...] Cap 14:04: mouth Medica l 46 nightly. [place] albuterol 2020- No 1{ampul Q.5D Take 1 [...] daily as M edical 31 :00 needed. [place] ARIPiprazol 2020- No 5mg QD Take [address] [facility] e (ABILIFY) 5-19 05-19 by mouth Berta es - 5 MG tablet 22:18: 00:00 nightly. M edical 03 :00 [place] ARIPiprazol 2020- No 10mg QD Take [address] [facility] [facility] e (ABILIFY) 5-19 05-19 by mouth Berta es - 10 MG 22:17: 00:00 daily. Medical disintegrat 48 :00 Center ing tablet levETIRAcet 2018- Yes [id number] 1000mg Take 2 Univers am 500 mg 7-29 tablets by ity of tablet 00:00: mouth 2 [place] 00 (two) Medical times Branch daily. levETIRAcet 2018- Yes [id number] 1000mg Take 2 Univers am 500 mg 7-29 tablets by ity of tablet 00:00: mouth 2 [place] 00 (two) Medical times Branch daily. levETIRAcet 2018- Yes [id number] 1000mg Take 2 Univers am 500 mg 7-29 tablets by ity of tablet 00:00: mouth 2 [place] 00 (two) Medical times Branch daily. levETIRAcet Yes [id number] 1000mg Take 2 Univers am 500 mg 7-29 tablets by ity of tablet 00:00: mouth 2 [place] 00 (two) Medical times Branch daily. levETIRAcet 2022- No [id number] 1000mg Take 2 Univers am 500 mg 7-29 03-24 tablets by ity of tablet 00:00: 00:00 mouth 2 [place] 00 :00 (two) Medical times Branch daily. blood sugar 2017-09 Yes [id number] Use as Univers diagnostic 0-24 directed. ity of (TRUETEST 00:00: [place]. [place] TEST 00 Check once Medical STRIPS) daily Branch strip lancets 2017-09 Yes [id number] Use as Uni vers (TRUEPLUS 0-24 directed. ity o f LANCETS) 33 00:00: R 73.03, [place] gauge Misc 00 Check once Med ical daily Branch blood sugar 2017-09 Yes [id number] Use as Univers diagnostic 0-24 directed. ity of (TRUETEST 00:00: [place] TEST 00 Check once Medical STRIPS) daily Branch strip lancets 2017-09 Yes [id number] Use as Uni vers (TRUEPLUS 0-24 directed. ity o f LANCETS) 33 00:00: R 73.03, [place] gauge Misc 00 Check once Med ical daily Branch blood sugar 2017-09 Yes [id number] Use as Univers diagnostic 0-24 directed. ity of (TRUETEST 00:00: [place]. [place] TEST 00 Check once Medical STRIPS) daily Branch strip lancets 2017-09 Yes [id number] Use as Uni vers (TRUEPLUS 0-24 directed. ity o f LANCETS) 33 00:00: R 73.03, [place] gauge Misc 00 Check once Med ical daily Branch blood sugar 2017-09 Yes [id number] Use as Univers diagnostic 0-24 directed. ity of (TRUETEST 00:00: [place]. [place] TEST 00 Check once Medical STRIPS) daily Branch strip lancets 2017-09 Yes [id number] Use as Uni vers (TRUEPLUS 0-24 directed. ity o f LANCETS) 33 00:00: R 73.03, [place] gauge Misc 00 Check once Med ical daily Branch blood sugar 2017-09 Yes [id number] Use as Univers diagnostic 0-24 directed. ity of (TRUETEST 00:00: [place].03. [place] TEST 00 Check once Medical STRIPS) daily Branch strip lancets 2017-09 Yes [id number] Use as Uni vers (TRUEPLUS 0-24 directed. ity o f LANCETS) 33 00:00: R 73.03, [place] gauge Misc 00 Check once Med ical daily [place] busPIRone Yes TK 1 T PO Uni vers 15 mg 9-22 BID ity of tablet 00:00: [place] [facility] venlafaxine Yes 150mg 150 mg at Univers XR 150 mg 06-16 bedtime. ity of 24 hr 00:00: capsule [facility] busPIRone Yes TK 1 T PO Uni vers 15 mg 9-22 BID ity of tablet 00:00: [place] [facility] venlafaxine Yes 150mg 150 mg at Univers XR 150 mg 06-16 bedtime. ity of 24 hr 00:00: capsule [facility] busPIRone Yes TK 1 T PO Uni vers 15 mg 9-22 BID ity of tablet 00:00: [place] [facility] venlafaxine Yes 150mg 150 mg at Univers XR 150 mg 06-16 bedtime. ity of 24 hr 00:00: [place] capsule [facility] busPIRone Yes TK 1 T PO Uni vers 15 mg 9-22 BID ity of tablet 00:00: [place] [facility] venlafaxine Yes 150mg 150 mg at Univers XR 150 mg 06-16 bedtime. ity of 24 hr 00:00: [place] capsule 00 Medical Branch busPIRone Yes TK 1 T PO Uni vers 15 mg 06-16 BID ity of tablet 00:00: Medical Branch [...] of 10 mg 00:00: [place] tablet 00 [facility] Branch Immunizations Ordered Filled Immunization Date Status Comments [facility] e Immunization Name Name SARS-COV-2 COVID-19 2021-02-08 Completed Unive rsity of MODERNA VACCINE 00:00:00 [facility] SARS-COV-2 COVID-19 2021-02-08 Completed Unive rsity of MODERNA VACCINE 00:00:00 [facility] SARS-COV-2 COVID-19 2021-02-08 Completed Unive rsity of MODERNA VACCINE 00:00:00 [facility] SARS-COV-2 COVID-19 2021-02-08 Completed Unive rsity of MODERNA VACCINE 00:00:00 [facility] SARS-COV-2 COVID-19 2021-02-08 Completed Unive rsity of MODERNA VACCINE 00:00:00 [facility] SARS-COV-2 COVID-19 2021-01-11 Completed Unive rsity of MODERNA VACCINE 00:00:00 [facility] SARS-COV-2 COVID-19 2021-01-11 Completed Unive rsity of MODERNA VACCINE 00:00:00 [facility] SARS-COV-2 COVID-19 2021-01-11 Completed Unive rsity of MODERNA VACCINE 00:00:00 [facility] SARS-COV-2 COVID-19 2021-01-11 Completed Unive rsity of MODERNA VACCINE 00:00:00 [facility] SARS-COV-2 COVID-19 2021-01-11 Completed Unive rsity of MODERNA VACCINE 00:00:00 [facility] Influenza Virus 2020-08-13 Completed Universit y of Vaccine 00:00:00 [facility] Influenza Virus 2020-08-13 Completed Universit y of Vaccine 00:00:00 [facility] Influenza Virus 2020-08-13 Completed Universit y of Vaccine 00:00:00 [facility] Influenza Virus 2020-08-13 Completed Universit y of Vaccine 00:00:00 [facility] Influenza Virus 2020-08-13 Completed Universit y of Vaccine 00:00:00 [facility] Pneumococcal 2017-06-23 Completed University o f Polysaccharide, 00:00:00 [facility] ical PPSV23 (PNEUMOVAX) Branch Pneumococcal 2017-06-23 Completed University o f Polysaccharide, 00:00:00 [facility] ical PPSV23 (PNEUMOVAX) Branch Pneumococcal 2017-06-23 Completed University o f Polysaccharide, 00:00:00 [facility] ical PPSV23 (PNEUMOVAX) Branch Pneumococcal 2017-06-23 Completed University o f Polysaccharide, 00:00:00 [facility] ical PPSV23 (PNEUMOVAX) Branch Pneumococcal 2017-06-23 Completed University o f Polysaccharide, 00:00:00 [facility] ical PPSV23 (PNEUMOVAX) Branch Influenza High Dose 2015-11-16 Completed Unive rsity of 00:00:00 [facility] Pneumococcal 2015-11-16 Completed University o f Polysaccharide, 00:00:00 [facility] ical PPSV23 (PNEUMOVAX) Branch Influenza High Dose 2015-11-16 Completed Unive rsity of 00:00:00 [facility] Pneumococcal 2015-11-16 Completed University o f Polysaccharide, 00:00:00 [facility] ical PPSV23 (PNEUMOVAX) Branch Influenza High Dose 2015-11-16 Completed Unive rsity of 00:00:00 [facility] Pneumococcal 2015-11-16 Completed University o f Polysaccharide, 00:00:00 [place] Med ical PPSV23 (PNEUMOVAX) Branch Influenza High Dose 2015-11-16 Completed Unive rsity of 00:00:00 [facility] Pneumococcal 2015-11-16 Completed University o f Polysaccharide, 00:00:00 [place] Med ical PPSV23 (PNEUMOVAX) Branch Influenza High Dose 2015-11-16 Completed Unive rsity of 00:00:00 [facility] Pneumococcal 2015-11-16 Completed University o f Polysaccharide, 00:00:00 [place] Med ical PPSV23 (PNEUMOVAX) Branch Vital Signs Vital Name Observation Time Observation Value Comments Source HEIGHT 2021-02-10 21:00:00 149.9 cm WEIGHT 2021-02-10 21:00:00 59.467 kg Systolic blood 2021-12-09 09:31:00 101 mm[Hg] Univer sity of pressure [facility] Diastolic blood 2021-12-09 09:31:00 83 mm[Hg] Unive rsity of [facility] Heart rate 2021-12-09 09:31:00 95 /min [facility] Respiratory rate 2021-12-09 09:31:00 13 /min [facility] Oxygen saturation in 2021-12-09 09:31:00 97 /min [facility] Arterial blood by [facility] Pulse oximetry [place] Body temperature 2021-12-09 06:48:00 36.83 [facility] height 2021-12-09 06:48:00 149.9 cm [facility] Body weight 2021-12-09 06:48:00 61.236 kg [facility] BMI 2021-12-09 06:48:00 27.27 kg/m2 [facility] HEIGHT 2021-02-10 21:00:00 149.9 cm WEIGHT 2021-02-10 21:00:00 59.467 kg Oxygen saturation in 2021-03-18 20:00:00 97 /min [facility] Arterial blood by Pulse oximetry Systolic blood 2021-03-18 17:24:48 132 mm[Hg] Method ist [facility] pressure Diastolic blood 2021-03-18 17:24:48 72 mm[Hg] Metho dist [facility] pressure Heart rate 2021-03-18 17:24:48 96 /min [facility] Body temperature 2021-03-18 17:24:48 37 Ayaka [facility] Respiratory rate 2021-03-18 17:24:48 14 /min [facility] Body height 2021-03-18 01:37:00 149.9 cm [facility] Body weight 2021-03-18 00:09:00 58.968 kg [facility] BMI 2021-03-18 00:09:00 26.26 kg/m2 [facility] Systolic blood 2021-02-12 12:00:00 101 mm[Hg] [facility] Diastolic blood 2021-02-12 12:00:00 72 mm[Hg] [facility] Heart rate 2021-02-12 12:00:00 93 /min [facility] Respiratory rate 2021-02-12 12:00:00 18 /min [facility] Oxygen saturation in 2021-02-12 12:00:00 96 /min [facility] Arterial blood by Medical Ce nter Pulse oximetry Body temperature 2021-02-12 11:00:00 37.56 Ayaka [facility] Body height 2021-02-11 10:15:00 149.9 cm [facility] Body weight 2021-02-11 10:15:00 59.5 kg [facility] BMI 2021-02-11 10:15:00 26.48 kg/m2 [facility] Procedures Procedure Date / Time Performing Clinician Source Performed XR CHEST 1 VW 2021-12-09 07:26:00 Radha Abrams [facility] TROPONIN I 2021-12-09 07:26:00 Radha Abrams [facility] COMP. METABOLIC PANEL 2021-12-09 07:26:00 Radha Abrams [facility] ([id number]) Medical Branch DIGOXIN 2021-12-09 07:26:00 Radha Abrams [facility] CBC WITH DIFF 2021-12-09 07:26:00 Radha Abrams [facility] N-TERMINAL PRO-BNP 2021-12-09 07:26:00 Radha Abrams [facility] [place] COVID-19 (ID NOW RAPID 2021-12-09 07:26:00 Radha Abrams Un [facility] TESTING) Medical Branch NOTICE OF PRIVACY 2021-12-09 06:42:04 Doctor Unassigned, [facility] PRACTICES [place] [facility] CONSENT/REFUSAL FOR 2021-12-09 06:41:48 Doctor Unassigned, [facility] DIAGNOSIS AND TREATMENT [facility] [facility] MEDICATION CORRESPONDENCE 2021-12-07 05:01:00 Doctor Unassigned, [facility] [place] [facility] POC GLUCOSE 2021-03-18 17:31:00 Cliff Berkowitz spital ECG 12-LEAD 2021-03-18 17:28:01 Lae, [facility] TROPONIN 2021-03-18 16:41:00 [facility] TTE COMPLETE, WO 2021-03-18 14:19:12 [facility], [facility] CONTRAST, W DOPPLER ([id number]) POC GLUCOSE 2021-03-18 13:14:00 [facility] HC COMPLETE BLD COUNT 2021-03-18 10:00:00 [facility] W/AUTO DIFF COMPREHENSIVE METABOLIC 2021-03-18 10:00[facility] MAGNESIUM LEVEL 2021-03-18 10:00:00 [facility] PHOSPHORUS LEVEL 2021-03-18 10:00:00 [facility] LIPID PANEL 2021-03-18 10:00:00 [facility] HEMOGLOBIN A1C 2021-03-18 10:00:00 [facility] ESTIMATED GFR 2021-03-18 10:00:00 [facility] URINE CULTURE 2021-03-18 06:12:00 [facility] LEGIONELLA URINARY 2021-03-18 05:36:00 [facility] ANTIGEN STREPTOCOCCUS PNEUMONIAE 2021-03-18 05:36:00 Lae, [facility] URINARY ANTIGEN URINALYSIS SCREEN AND 2021-03-18 05:36:00 [facility], [facility] MICROSCOPY, WITH REFLEX TO CULTURE BLOOD CULTURE, AEROBIC & 2021-03-18 04:35:00 [facility], [facility] ANAEROBIC BLOOD CULTURE, AEROBIC & 2021-03-18 04:25:00 Lae, [facility] ANAEROBIC DIGOXIN LEVEL 2021-03-18 04:24:00 Lae, [facility] TROPONIN 2021-03-18 04:24:00 [facility] LACTIC ACID LEVEL, SEPSIS 2021-03-18 04:24:00 [facility], [facility] - NOW AND REPEAT 2X EVERY 3 HOURS POC GLUCOSE 2021-03-18 01:38:00 [facility], [facility] ARTERIAL BLOOD GAS 2021-03-18 01:10:00 [facility], [facility] US DUPLEX VENOUS LOWER 2021-03-18 01:00:06 Lae, [facility] EXTREMITY BILATERAL LACTIC ACID LEVEL, SEPSIS 2021-03-17 23:47:00 [facility], [facility] - NOW AND REPEAT 2X EVERY 3 HOURS TROPONIN 2021-03-17 23:47:00 [facility] [facility] XR CHEST 1 VW PORTABLE 2021-03-17 21:20:18 [facility]TE BLD COUNT 2021-03-17 21:05:00 [facility] W/AUTO DIFF LACTIC ACID LEVEL, SEPSIS 2021-03-17 21:05:00 [facility] - NOW AND REPEAT 2X EVERY 3 HOURS COMPREHENSIVE METABOLIC 2021-03-17 21:05:00 [facility] PANEL TROPONIN 2021-03-17 21:05:00 [facility] B NATRIURETIC PEPTIDE 2021-03-17 21:05:00 [facility] D-DIMER 2021-03-17 21:05:00 [facility] ESTIMATED GFR 2021-03-17 21:05:00 [facility] ECG ED PRELIMINARY 2021-03-17 20:36:46 [facility] INTERPRETATION ECG 12-LEAD 2021-03-17 20:19:38 [facility] BASIC METABOLIC PANEL (7) 2021-02-12 05:34:00 [facility] 2021-02-12 05:34:00 [facility] PHOSPH[facility]US 2021-02-12 05:34:00 [facility] CBC W/PLT COUNT & AUTO 2021-02-12 04:48:00 Alison Prado [facility] MR BRAIN WITHOUT IV 2021-02-11 16:08:00 [facility] MRA HEAD WITHOUT IV 2021-02-11 16:07:00 [facility] MRA NECK WITHOUT IV 2021-02-11 16:07:00 [facility] RAPID DRUG SCREEN, URINE 2021-02-11 03:05:00 [facility] URINALYSIS WITH 2021-02-11 03:05:[address] [facility] MICROSCOPIC IF INDICATED [facility] URINALYSIS MICROSCOPIC 2021-02-11 03:05:00 Alison Prado [facility] HOMOCYSTEINE 2021-02-11 02:46:00 Johan [facility] RPR 2021-02-11 02:46:00 [facility] TSH/FREE T4 IF INDICATED 2021-02-11 02:46:00 [facility] VITAMIN B12 AND FOLATE 2021-02-11 02:46:00 Alison Prado [facility] CBC W/PLT COUNT & AUTO 2021-02-11 02:46:00 Alison Prado [facility] BASIC METABOLIC PANEL (7) 2021-02-11 02:46:00 [facility] MAGNESIUM 2021-02-11 02:46:00 Johan [facility] PHOSPHORUS 2021-02-11 02:46:00 [facility] C-REACTIVE PROTEIN 2021-02-11 02:46[facility] 2021-02-11 02:46:00 [facility] XR CHEST 1 VIEW PORTABLE 2021-02-10 22:20:00 [facility] BEDSIDE [facility] POCT-GLUCOSE METER 2021-02-10 21:28:00 Wilmer Vera [facility] LIPID PANEL 2021-02-10 21:22:00 [facility] CREATINE KINASE (CK) 2021-02-10 21:21:00 [facility] HEMOGLOBIN A1C 2021-02-10 21:21:00 [facility] CBC W/PLT COUNT & AUTO 2021-02-10 21:21:00 Alison Prado [facility] COMPREHENSIVE METABOLIC 2021-02-10 21:21:00 Alison Prado [facility] PROTHROMBIN TIME/INR 2021-02-10 21:21:00 [facility] APTT 2021-02-10 21:21:00 [facility] MAGNESIUM 2021-02-10 21:21:00 [facility] PHOSPHORUS 2021-02-10 21:21:00 [facility] HIGH SENSITIVITY TROPONIN 2021-02-10 21:21:00 [facility] B-TYPE NATRIURETIC FACTOR 2021-02-10 21:21:[address] [facility] - (BNP) [facility] LACTIC ACID, VENOUS 2021-02-10 21:21:00 [facility]ison [facility] ARRYTHMIA IMPLANT REPORT 2021-02-10 00:00:00 ProviderMino - - SCAN Scanning [facility] Plan of Care Planned Activity Planned Date Details Comments Source Future Scheduled 2021-05-[address] [facility] - Test 00:00:00 (#1) [code = [facility] INFLUENZA VACCINE (#1)] Future Scheduled 2020-09-[address] [facility] - Test 00:00:00 (12+) [code = [facility] DEPRESSION SCREENING (12+)] Future Scheduled [address] [facility] Test 00:00:00 malignant neoplasm Medical C enter of cervix (procedure) [code = 923358843] Future Scheduled 2000 DTAP/TDAP/TD [facility] 00:[facility]:00 VACCINES (1 - Tdap) [facility] [code = DTAP/TDAP/TD VACCINES (1 - Tdap)] Future Scheduled [address] [facility] Test 00:00:00 SCREENING [code = Medical nter HEPATITIS C SCREENING] Future Scheduled Screening for [facility] Test malignant neoplasm of cervix (procedure) [code = 274613898] Future Scheduled [facility] [code = INFLUENZA VACCINE] Encounters Start End Encounter Admission Attending Care Care Encounter Source Date/Time Date/Time Type Type Clinicians Facility Department ID 2021-02-10 Inpatient ER BERSHAD, SLE Neurology [id number] [facility] 20:21:00 WILMER 2020-09-29 Inpatient Mely, HCAPM ENDO [id number] [facility] 10:15:00 Linus [id number] [facility] 2020-09-28 Inpatient EL Mely, HCAPM ENDO [id number] [facility] 12:00:00 Linus [id number] [facility] 2022-07-20 2022-07-20 Outpatient R TIMO SYKES [facility] [id number] Univers 09:20:00 09:20:00 TIMO SYKES [id number] [facility] 2022-01-212022-01-21 Outpatient R JONNY [facility] [id number] Univers 08:00:00 08:00:00 CHON [id number] ity o f [facility] 2021-12-16 2021-12-16 [facility] 1.2.167.725 [id number] Univers 00:00:00 00:00:00 Chon AVENDANOO 350.1.13.10 [place] [phone] In dical AND ADULT [address] [facility] 2021-12-09 2021-12-09 Emergency [facility] [id number] Univers 01:58:00 04:56:00 RADHA ity of [facility] 2021-12-09 2021-12-09 Emergency [facility] 1.2.840.114 [id number] Univers 01:58:00 04:56:00 Radha ONTIVEROS 350.1.13.10 [place] [id number] [place] [id number] [place] 2021-12-09 2021-12-09 Orders Doctor NURYS 1.2.840.114 [id number] Univers 00:00:00 00:00:00 Only Unassigned, PINKY 350.1.13.10 ity of [place] [facility] 4.2.7.2.686 Basilio as [id number] [address] 2021-12-07 2021-12-07 [facility]phone [facility] 1.2.977.184 [id number] Univers 00:00:00 00:00:00 Tucker ONTIVEROS 350.1.13.10 i ty of [place] [facility] [phone] In dical NAL [address] [facility] 2021-12-07 2021-12-07 Orders Doctor NURYS 1.2.840.114 [id number] Univers 00:00:00 00:00:00 Only Unassigned, PINKY 350.1.13.10 it[place] of [place] [facility] 4.2.7.2.686 Basilio as [phone] [address] 2021-05-12 2021-05-12 Orders Doctor NUNO 1.2.840.114 [id number] 00:00:00 00:00:00 Only Unassigned, PINKY 350.1.13.10 [place] [facility] 4.2.7.2.686 [id number] 009 2021-04-29 2021-04-29 Office NAKUL Guy 1.2.840.114 [id number] 12:33:16 13:56:43 Visit Deloresfransisco [place] 350.1.13.10 H[place] 4.2.7.2.686 Profleonard [phone] nal 085 [facility] 2021-04-28 2021-04-28 Orders DANITA Guy 1.2.811.598 [id number] 00:00:00 00:00:00 Only Tucker [facility] 350.1.13.10 CLINICS 4.2.7.2.686 [id number] 084 2021-03-19 2021-03-19 Patient Omari, 1.2.840.1 [id number] Methodi 00:00:00 00:00:00 Outreach Ann 89830.1.[address] 3.430.2.7 Hospit a .3.412541 l .8 2021-03-17 2021-03-18 Emergency Antonio Hector T. 1.2.840.1 [id number] Methodi 14:59:00 17:52:00 Veda Bolanos 26532.1.[address] [facility] 3.430.2.7 Hospita .3.119623 l .8 2021-03-17 2021-03-17 Travel 1.2.840.1 1.2.024.554 [id number] Methodi 00:00:00 00:00:[address] 3.430.2.7 0.2.7.3.698 Ho spita .3.365940 084.8 l .8 2017-09-06 2017-09-08 In[facility] [id number] 10:12:00 02:32:00 [facility] Results Test Description Test Time Test Comments Results Result Comments Source DIGOXIN 2021-12-09 08:10:11 Test Item Value Reference Range Interpretation Comme nts DIGOXIN (test code = 4980892825) <0.4 0.8-1.6 L SOMMER (test code = SOMMER) Arrythmias: ?1.5 - 2.0 ng/mLToxic Range: ? Greater than or equal to 2.4 ng/mL Lab Interpretation (test code = 62183-7) [facility] [id number] 08:02:49 Test Item Value Reference Interpretation Comments Range TROPONIN I (test <0.012 See_Comment [Automated code = 1154190106) message] The system which generated this result transmitted reference range : <=0.034 ng/mL. The reference range was not used to interpret this result as normal/abnormal . SOMMER (test code = Reference (Normal) SOMMER) Range (defined by the 99th percentile reference limit): <= 0.034 ng/mL Note: Cardiac troponin begins to rise 3-4 hours after the onset of ischemia. Repeat in 4-6 hours if the sample was drawn within 3-4 hours of the onset of the symptom and found normal. Diagnosis of myocardial injury is made with acute changes in cTn concentrations with at least one serial sample above the 99th percentile upper reference limit (URL), taken together with the patient's clinical presentation. Biotin has been reported to cause a negative bias, interpret results relative to patient's use of biotin. Lab Interpretation Normal (test code = 02934-0) [facility] [id number] 07:59:28 Test Item Value Reference Range Interpretation Comments NT-proBNP (test code 50 pg/mL See_Comment [Autom ated = 9042336126) message] The system which generated this result transmitted reference range : <=125. The reference range was not used to interpret this result as normal/abnormal . SOMMER (test code = SOMMER) Biotin has been reported to cause a negative bias, interpret results relative to patient's use of biotin. Lab Interpretation Normal (test code = 39515-8) [facility]OLIC PANEL (98894)2021-12-09 07:51:30 Test Item Value Reference Range Interpretation Comments NA (test code = 141 mmol/L 135-145 8895592321) K (test code = 4.1 mmol/L 3.5-5.0 5308258810) CL (test code = 103 mmol/L 98-108 3352881264) CO2 TOTAL (test code = 28 mmol/L 23-31 7556781397) AGAP (test code = 2-16 7235512888) BUN (test code = 13 mg/dL 7-23 9254556398) GLUCOSE (test code = 104 mg/dL 70-110 5310973586) CREATININE (test code = 0.66 mg/dL 0.50-1.04 8349805690) TOTAL BILI (test code = 0.3 mg/dL 0.1-1.1 0609046960) CALCIUM (test code = 9.6 mg/dL 8.6-10.6 8531931990) T PROTEIN (test code = 7.4 g/dL 6.3-8.2 5184274454) ALBUMIN (test code = 4.5 g/dL 3.5-5.0 0204172525) ALK PHOS (test code = 135 U/L 34-122 H 0212820750) ALTv (test code = 68 U/L 5-35 H 1742-6) AST(SGOT) (test code = 31 U/L 13-40 3704992557) eGFR (test code = mL/min/1.73m2 8439472039) SOMMER (test code = SOMMER) Association of Glomerular Filtration Rate (GFR) and Staging of Kidney Disease* + --+ --+ ------+| GFR (mL/min/1.73 m2) ?| With Kidney Damage ?| ?Without Kidney Damage+ --------+ --------+ +| ?>90 ?| ?Stage one ?| ? Normal ?+ ---+ ---+ -------+| ?60-89 ?| ?Stage two ?| ? Decreased GFR ? + --+ --+ ------+| ?30-59 ?| ?Stage three ?| ? Stage three ? + --+ --+ ------+| ?15-29 ?| ?Stage four ? | ? Stage four ?+ ---+ ---+ -------+| ?<15 (or dialysis) ? ?| ?Stage five ? | ? Stage five ?+ ---+ ---+ -------+ *Each stage assumes the associated GFR level has been in effect for at least three months. ?Stages 1 to 5, with or without kidney disease, indicate chronic kidney disease. Notes: Determination of stages one and two (with eGFR >59mL/min/1.73 m2) requires estimation of kidney damage for at least three months as defined by structural or functional abnormalities of the kidney, manifested by either:Pathological abnormalities or Markers of kidney damage (including abnormalities in the composition of the blood or urine or abnormalities in imaging tests). Lab Interpretation Abnormal (test code = 28370-0) [facility] WITH [id number] 07:37:07 Test Item Value Reference Range Interpretation Comments WBC (test code = See_Comment [Automated message] 7990-2) The system June Blackbox generated this result transmitted ref erence range: 4.30 - 1 1.10 10*3/?L. The re ference range was not u sed to interpret this result as normal/abnor mal. RBC (test code = See_Comment [Automated message] 909-8) The system June Black[employer] generated this result transmitted ref erence range: 3.93 - 5 .25 10*6/?L. The re ference range was not u sed to interpret this result as normal/abnor mal. HGB (test code = 13.9 g/dL 11.6-15.0 718-7) HCT (test code = 42.3 % 35.7-45.2 4544-3) MCV (test code = 86.5 fL 80.6-95.5 787-2) MCH (test code = 28.4 pg 25.9-32.8 785-6) MCHC (test code = 32.9 g/dL 31.6-35.1 786-4) RDW-SD (test code 40.4 fL 39.0-49.9 = 31306-9) RDW-CV (test code 12.9 % 12.0-15.5 = 788-0) PLT (test code = See_Comment [Automated message] 607-3) The system June Blackbox generated this result transmitted ref erence range: 166 - 35 8 10*3/?L. The re ference range was not u sed to interpret this result as normal/abnor mal. MPV (test code = 10.0 fL 9.5-12.9 93174-8) NRBC/100 WBC (test See_Comment [Automat ed message] code = 0589649660) The syste m which generated this result transmitted ref erence range: 0.0 - 10 .0 /100 WBCs. The refer ence range was not u sed to interpret this result as normal/abnor mal. NRBC x10^3 (test <0.01 See_Comment [Automated message] code = 2119833931) The syste m which generated this result transmitted ref erence range: 10*3/?L. The reference range was not used to interpr et this result as normal/abnormal . GRAN MAT (NEUT) % 55.6 % (test code = 770-8) IMM GRAN % (test 0.70 % code = 2711627352) LYMPH % (test code 33.9 % = 736-9) MONO % (test code 7.8 % = 5905-5) EOS % (test code = 1.7 % 713-8) BASO % (test code 0.3 % = 706-2) GRAN MAT 3.91 10*3/uL 1.88-7.09 x10^3(ANC) (test code = 5573907079) IMM GRAN x10^3 0.05 10*3/uL 0.00-0.06 (test code = 8811943130) LYMPH x10^3 (test 2.39 10*3/uL 1.32-3.29 code = 731-0) MONO x10^3 (test 0.55 10*3/uL 0.33-0.92 code = 742-7) EOS x10^3 (test 0.12 10*3/uL 0.03-0.39 code = 711-2) BASO x10^3 (test <0.03 0.01-0.07 code = 704-7) [facility] 12 [id number] 14:56:41 Test Item Value Reference Range Interpretation Comments Ventricular rate (test code = 253) Atrial rate (test code = 255) [place] interval (test code = 266) QRSD interval [...] change was found- [facility] [id number] 12:41:23 Test Item Value Reference Range Interpretation Comments Urine culture isolate Mixed alok <=10-3 (test code = 81851-1) col/cc [facility] WorthTransthoracic Echocardiogram Complete, (w Contrast, Strain and 3D if needed)2021-03-18 23:04:52 Test Item Value Reference Range Interpretation Comments Ao Root Diameter (test code = 2.73 cm 0941849534) AoV Area, Vmax (test code = 2.24 cm2 1028803136) AoV Area, VTI (test code = 2.25 cm2 6852112721) AoV Mean PG (test code = mmHg 8621642944) AoV Peak PG (test code = mmHg 4064860846) AoV Vmax (test code = 6554566067) 1.46 m/s AoV VTI (test code = 2348725384) 0.28 m IVS,d (test code = 7325213533) 0.72 cm IVS/LVPW,2D (test code = 7563775235) Left Atrium Dimension Anterior 2.68 cm (test code = 1270546205) LV,d (test code = 2506715499) 3.69 cm LV EF,2D (test code = 2671157940) 79.68 % LV,s (test code = 0400011635) 2.17 cm LVOT area (test code = 5722920027) 2.75 cm2 LVOT Diam,S (test code = 1.87 cm 9590149188) LVOT Vmax (test code = 8459263847) 1.18 m/s LVOT VTI (test code = 2883722728) 0.23 m LVPWD,d (test code = 7942472474) 0.65 cm PV Pk Grad (test code = 6005657657) mmHg PV VMAX (test code = 7763220785) 0.84 m/s RVOT Vmax (test code = 5755557486) 0.85 m/s RVSP (TR) (test code = 8596965576) mmHg TR Vpeak (test code = 6822540928) 2.86 mm/s MV E A ratio (test code = 9932573169) RA pressure (test code = mmHg 1078957062) TR pk grad (test code = 1702541117) mmHg MR Vmax (test code = 4898730934) 5.49 m/s E wave decelartion time (test code msec = 3512564353) MV Peak A Alf (test code = 0.76 m/s 2788332301) MV valve area p 1/2 method (test 3.26 cm2 code = 6477445145) MV Peak E Alf (test code = 0.92 m/s 9213749113) MV stenosis pressure 1/2 time (test 67.54 ms code = 7988503258) LVOT stroke volume (test code = 0.63 cm3 4592385652) AV LVOT peak gradient (test code = mmHg 3832025865) RVSP (test code = 8362408789) mmHg Ao Root Diameter (test code = 2.73 cm 7458203231) MV mean gradient (test code = mmHg 8403151060) LV SYS VOL (test code = 1591660835) 15.61 ml LV MARTINS VOL (test code = 57.63 ml 9509364104) LA area s A4C (test code = 11.16 cm2 0418560885) LV SV Teich 2D (test code = 42.02 ml 7330507941) LV Vol s Teich PSAX (test code = 15.61 ml 9177181093) MR peak grad (test code = mmHg 2130874121) MV Vmax (test code = 6539672984) 1.21 m MV VTI Tips (test code = 0.24 m 8689279975) RVOT pk grad (test code = mmHg 3577459610) AoV Vmn (test code = 6032367364) LV FS Teich 2D (test code = 6231866817) MV AE ratio (test code = 9221101556) LV FS Cube 2D (test code = 9551846430) LVOT Vmn (test code = 5071767963) Aov area Vmn (test code = 2.13 cm2 8632159024) LVOT mean grad (test code = mmHg 9302045807) MAX Pred HR (test code = 9293353363) 85 of MPHR (test code = 5156867665) Calc MPHR (test code = 0735594130) bpm LV SV Cube 2D (test code = 39.93 ml 3594186358) LV vol d cube 2D (test code = 50.11 ml 4108913586) LV vol s cube 2D (test code = 10.18 ml 8269034565) MV Decel slope (test code = 3.97 m/s2 9098790258) Pred Exer Dur R1 (test code = 7069924640) Pred METS R1 (test code = 0157482697) LA Vol MOD A4C (test code = 24.20 ml 0955613973) Velocity Ratio (V1/V2) (test code = 0.81 m/s 4689) EF (test code = 5616381085) 72.91 % E/A ratio (test code = 3444773491) LVOT VTI (CM) (test code = 23.00 cm 2824974119) SOMMER (test code = SOMMER) [facility] [id number] 17:32:37 Test Item Value Reference Range Interpretation Comments POC glucose (test code = 33556-5) 207 mg/dL 65-99 H Lab Interpretation (test code = Abnormal 88129-7) [facility] duplex venous lower [id number] 01:17:37 EXAMINATION: US DUPLEX VENOUS LOWER EXTREMITY [...] is no evidence of deep venous thrombosis. [facility]-[id number] Interface, Radiology Results 03/17/2021 8:20 PM CDT [...] There is no evidence of deep venous thrombosis.[facility]-[id number] HospitalXR Chest 1 Vw [id number] 21:32:52EXAMINATION: XR CHEST 1 VW PORTABLE CLINICAL HISTORY: 40 years Female SOB COMPARISON: None. IMPRESSION: Lines, tubes, and devices: Right-sided transvenous cardiac pacemaker. Heart and mediastinum: Cardiomediastinal silhouette is normal. Lungs and pleura: There is no focal airspace disease, pleuraleffusion or pneumothorax. Bones/soft tissues: No acute osseous abnormality. [facility]-[id number] Dictatedand approved by residential sales rep/fellow: Cristhian Calixto M.D. I, Jan Scott MD, [...] effusion or pneumothorax.Bones/soft tissues: No acute osseous abnormality.[facility]-[id number] and approved by residential sales rep/fellow: Cristhian Calixto M.D.I, Jan Scott MD, personally rev iewed the images and resident's/fellow's findings and agree with the final report.[facility] WorthARRYTHMIA IMPLANT REPORT - [id number] 20:45:31 Ordered by an unspecified provider.[facility] Preliminary Interpretation - Not an [id number] 20:36:46 Test Item Value Reference Range Interpretation Comments SOMMER (test code = SOMMER) Lab Interpretation (test code = Abnormal 43682-9) [facility] Worth[facility]asi Metabolic [id number] 07:01:00 Test Item Value Reference Range Interpretation Comments Sodium (test code = 137 meq/L 481-204 2422-2) Potassium (test code = 4.3 meq/L 3.5-5.1 2823-3) Chloride (test code = 104 meq/L 98-107 2075-0) CO2 (test code = 24 meq/L 22-29 2028-9) BUN (test code = 15 mg/dL 7-21 3094-0) Creatinine (test code 0.81 mg/dL 0.57-1.25 = 2160-0) Glucose (test code = 108 mg/dL 70-105 H 2345-7) Calcium (test code = 9.2 mg/dL 8.4-10.2 77475-5) EGFR (test code = 79 mL/min/1.73 [place] [address]-4) NOT ACCURATE CREATININE CLEARANCE IN PREDICTING GLOMERULAR FILTRATION RATE . ESTIMATED GFR I S NOT APPLICABLE FOR DIALYSIS PATIENTS. SOMMER (test code = SOMMER) Shank Carrier ID - PIAYA L Lab Interpretation Abnormal (test code = 31270-1) [facility]2021-[facility]-21 07:01:00 Test Item Value Reference Range Interpretation Comments Magnesium (test code = 2.5 mg/dL 1.6-2.6 24744-1) SOMMER (test code = SOMMER) Shank Carrier ID - PIAYA L Lab Interpretation (test Normal code = 41330-9) [facility]2021-[facility]-21 07:01:00 Test Item Value Reference Range Interpretation Comments Phosphorus (test code = 4.3 mg/dL 2.3-4.7 2777-1) SOMMER (test code = SOMMER) Shank Carrier ID - SHAMIKADEANN L Lab Interpretation (test Normal code = 06785-7) [facility] HospitalBASIC METABOLIC [id number] 07:01:00 Test Item Value Reference Range Interpretation [...] S NOT APPLICABLE FOR DIALYSIS PATIEN TS. Shank Carrier ID - MACHELLE [id number] 07:01:00 Test Item Value Reference Range Interpretation Comments MAGNESIUM (BEAKER) (test code = 2.5 mg/dL 1.6-2.6 627) Shank Carrier ID - MACHELLE [id number] 07:01:00 Test Item Value Reference Range Interpretation Comments PHOSPHORUS (BEAKER) (test code = 4.3 mg/dL 2.3-4.7 604) Shank Carrier ID - MACHELLE LCBC with platelet count + automated [id number] 05:37:00 Test Item Value Reference Range Interpretation Comments WBC (test code = 6690-2) 6.8 See_Comment [A utomated message] The system June Blackbox generated this result transmitted ref erence range: 3.5 - 10 .5 K/L. The refe rence range was not u sed to interpret this result as normal/abnor mal. RBC (test code = 789-8) 5.14 See_Comment [Au tomated message] The system June Blackbox generated this result transmitted ref erence range: 3.93 - 5 .22 M/L. The refe rence range was not u sed to interpret this result as normal/abnor mal. MCHC (test code = 786-4) 31.6 See_Comment L [A utomated message] The system June Blackbox generated this result transmitted ref erence range: [...] See_Comment [Aut omated message] 777-3) The system June Blackbox generated this result transmitted ref erence range: 150 - 45 0 K/CU MM. The referen ce range was not u sed to interpret this result as normal/abnor mal. MPV (test code = 10.0 fL 9.4-12.3 85672-9) nRBC (test code = 413) 0 See_Comment [Aut omated message] The system June Blackbox generated this result transmitted ref erence range: [...] See_Comment [Aut omated message] 670) The system June Blackbox generated this result transmitted ref erence range: 1.56 - 6 .13 K/L. The refe rence range was not u sed to interpret this result as normal/abnor mal. # Lymphs (test code = 2.10 See_Comment [Auto mated message] 414) The system June Blackbox generated this result transmitted ref erence range: 1.18 - 3 .74 K/L. The refe rence range was not u sed to interpret this result as normal/abnor mal. # Monos (test code = 0.48 See_Comment H [Autom ated message] 415) The system June Blackbox generated this result transmitted ref erence range: 0.24 - 0 .36 K/L. The refe rence range was not u sed to interpret this result as normal/abnor mal. # Eos (test code = 416) 0.26 See_Comment [Au tomated message] The system June Blackbox generated this result transmitted ref erence range: 0.04 - 0 .36 K/L. The refe rence range was not u sed to interpret this result as normal/abnor mal. # Baso (test code = 417) 0.04 See_Comment [A utomated message] The system June Blackbox generated this result transmitted ref erence range: 0.01 - 0 .08 K/L. The refe rence range was not u sed to interpret this result as normal/abnor mal. Immature 1 % 0-1 Granulocytes-Relative (test code = 2801) Lab Interpretation (test Abnormal code = 42226-4) [facility] W/PLT COUNT & AUTO [id number] 05:37:00 Test Item Value Reference Range Interpretation [...] code = 2801) MR, MRA, BRAIN, WITHOUT [id number] 16:54:00Reason for exam:->Ischemic Stroke Evaluation[facility] : 1980 Sex: FFINAL REPORT MR, BRAIN, WITHOUT CONTRAST, MR, MRA, BRAIN, WITHOUT CONTRAST, MR, MRA, NECK, WITHOUT IV CONTRAST INDICATION: Stroke, follow upIschemic Stroke Evaluation TECHNIQUE: Multiplanar, multisequence MR imaging of the brain without intravenous contrast.MRA of the head utilizing 3-D erxj-wo-vmxwyo technique, with 3-D reconstructions.MRA of the neck utilizing 2-D and 3-D bbhk-hn-zsspqv technique, with 3-D reconstructions. COMPARISON: MRI and [...] 02/11/2021 16:54:16 MR, MRA, NECK, WITHOUT IV [id number] 16:54:00Reason for exam:->Ischemic Stroke Evaluation [facility] : 1980 Sex: FFINAL REPORT MR, BRAIN, WITHOUT CONTRAST, MR, MRA, BRAIN, WITHOUT CONTRAST, MR, MRA, NECK, WITHOUT IV CONTRAST INDICATION: Stroke, follow upIschemic Stroke Evaluation TECHNIQUE: Multiplanar, multisequence MR imaging of the brain without intravenous contrast.MRA of the head utilizing 3-D ibdm-gc-bpbcso technique, with 3-D reconstructions.MRA of the neck utilizing 2-D and 3-D mpob-ea-mloryd technique, with 3-D reconstructions. COMPARISON: MRI and [...] Verified Date/Time: 02/11/2021 16:54:16 MR, BRAIN, WITHOUT [id number] 16:54:00Reason for exam:->Ischemic Stroke Evaluation [facility] : 1980 Sex: FFINAL REPORT MR, BRAIN, WITHOUT CONTRAST, MR, MRA, BRAIN, WITHOUT CONTRAST, MR, MRA, NECK, WITHOUT IV CONTRAST INDICATION: Stroke, follow upIschemic Stroke Evaluation TECHNIQUE: Multiplanar, multisequence MR imaging of the brain without intravenous contrast.MRA of the head utilizing 3-D xnne-jp-epvdoz technique, with 3-D reconstructions.MRA of the neck utilizing 2-D and 3-D kgkl-vx-zkyqxu technique, with 3-D reconstructions. COMPARISON: MRI and [...] Date/Time: 02/11/2021 16:54:16 MR brain without IV [id number] 16:54:00Interface, External Ris In - 02/11/2021 4:56 PM CDTFINAL REPORT MR, BRAIN, WITHOUT CONTRAST, MR, MRA, BRAIN, WITHOUT CONTRAST, MR, MRA, NECK, WITHOUT IV CONTRAST INDICATION: Stroke, follow upIschemic Stroke Evaluation TECHNIQUE: Multiplanar, multisequence MR imaging of the brain without intravenous contrast.MRA of the head utilizing 3-D dwqz-rl-vrmshb technique, with 3-D reconstructions.MRA of the neck utilizing 2-D and 3-D kszn-vz-ucjiun technique, with 3-D reconstructions. COMPARISON: MRI and [...] Signed: Lakshmi Amador Verified Date/Time: 02/11/2021 16:54:16 [facility] [id number] 16:54:00Interface, External Ris In - 02/11/2021 4:56 PM CDTFINAL REPORT MR, BRAIN, WITHOUT CONTRAST, MR, MRA, BRAIN, WITHOUT CONTRAST, MR, MRA, NECK, WITHOUT IV CONTRAST INDICATION: Stroke, follow upIschemic Stroke Evaluation TECHNIQUE: Multiplanar, multisequence MR imaging of the brain without intravenous contrast.MRA of the head utilizing 3-D dnke-sw-rtnejw technique, with 3-D reconstructions.MRA of the neck utilizing 2-D and 3-D keoo-hm-mifrpg technique, with 3-D reconstructions. COMPARISON: MRI and [...] Signed: Lakshmi Amador Verified Date/Time: 02/11/2021 16:54:16 [facility] without IV [id number] 16:54:00Interface, External Ris In - 02/11/2021 4:56 PM CDTFINAL REPORT MR, BRAIN, WITHOUT CONTRAST, MR, MRA, BRAIN, WITHOUT CONTRAST, MR, MRA, NECK, WITHOUT IV CONTRAST INDICATION: Stroke, follow upIschemic Stroke Evaluation TECHNIQUE: Multiplanar, multisequence MR imaging of the brain without intravenous contrast.MRA of the head utilizing 3-D mvob-eo-jpgqdr technique, with 3-D reconstructions.MRA of the neck utilizing 2-D and 3-D atjb-sg-tcikps technique, with 3-D reconstructions. COMPARISON: MRI and [...] Lakshmi Amador MDReport Verified Date/Time: 02/11/2021 16:54:16 [facility] CenterRPR2021-05-20 14:02:00 Test Item Value Reference Range Interpretation Comments RPR (test code = 31976-0) Nonreactive Nonreactive Lab Interpretation (test code = Normal 34242-5) [facility] 14:02:00 Test Item Value Reference Range Interpretation Comments RPR SCREEN (BEAKER) (test code = Nonreactive Nonreactive 420) Hemoglobin [id number] 09:35:00 Test Item Value Reference Range Interpretation Comments Hemoglobin A1C (test code = 4548-4) 6.0 % 4.3-6.1 Lab Interpretation (test code = Normal 40860-7) [facility] HospitalHEMOGLOBIN [id number] 09:35:00 Test Item Value Reference Range Interpretation Comments HEMOGLOBIN A1C (BEAKER) (test code = 6.0 % 4.3-6.1 368) Rapid drug screen, [id number] 07:26:00 Test Item Value Reference Range Interpretation Comments Barbiturate Screen Negative Negative (test code = 32225-3) Benzodiazepine Screen Negative Negative (test code = 83059-9) Cocaine (Metab.) Negative Negative Screen (test code = 3397-7) Methadone Screen (test Negative Negative code = 63280-6) Opiate Screen (test Negative Negative code = 34071-9) Cannabinoid Screen Negative Negative (test code = 81022-2) Amph/Methamph Screen Negative Negative (test code = 99350-3) Phencyclidine Screen Negative Negative (test code = 20333-6) pH, UA (test code = 6.5 5.0-8.0 5803-2) SOMMER (test code = SOMMER) DRUG CUTOFF CONC.Cocaine 300 ng/mL Cannabinoid 50 ng/mLBenzodiazepine 200 ng/mLBarbiturate 200 ng/mLPhencyclidine 25 ng/mLOpiate 300 ng/mLMethadone 300 ng/mLAmphetamine/ 1000 ng/mL Methamphetamine This assay provides an unconfirmed qualitative test result for the clinical management of patients in emergency situations. Chain of custody not maintained. Some uuyf-sji-csnfpyg medications, as well as adulterants, may cause inaccurate results. Clinical correlation should be applied. A more comprehensive drug screen or confirmation of a detected drug may be performed upon request.Shank Carrier ID - VIET Jerez Lab Interpretation Normal (test code = 42372-2) [facility] HospitalRAPID DRUG SCREEN, [id number] 07:26:00 Test Item Value Reference Range Interpretation [...] situations. Chain of custody not maintained. Some szpo-qcd-wrokvph medications, as well as adulterants, may cause inaccurate results. Clinical correlation should be applied. A more comprehensivedrug screen or confirmation of a detected drug may be performed upon request.Shank Carrier ID - VIET MUrinalysis with Microscopic If [id number] 07:11:00 Test Item Value Reference Range Interpretation Comments Color, UA (test code = Light Yellow 5778-6) Clarity, UA (test code = Clear 5767-9) Specific [place], UA (test 1.012 1.001-1.035 code = 5811-5) pH, UA (test code = 6.5 5.0-8.0 5803-2) Protein, UA (test code = Negative Negative 42719-8) Glucose, UA (test code = Negative Negative 365) Ketones, UA (test code = Negative Negative 2514-8) Bilirubin, UA (test code = Negative Negative 84440-7) Blood, UA (test code = Small Negative A 77132-1) Nitrite, UA (test code = Negative Negative 5802-4) Leukocytes, UA (test code Small Negative A = 5799-2) Urobilinogen, UA (test 0.2 mg/dL 0.2-1 code = 97812-2) Specimen Source (test code = 2795) SOMMER (test code = SOMMER) Shank Carrier ID - [auto]Shank Carrier ID - tech Lab Interpretation (test Abnormal code = 96157-7) [facility] HospitalUrinalysis Microscopic [id number] 07:11:00 Test Item Value Reference Range Interpretation Comments RBC, UA (test 11 See_Comment [Automated me ssage] code = 85249-7) The system w [facility] generated this result transmitted ref erence range: /HPF. Th e reference range was not used to int erpret this result as normal/abnormal . WBC, UA (test 11 See_Comment [Automated me ssage] code = 5821-4) The system [facility] generated this result transmitted ref erence range: /HPF. Th e reference range was not used to int erpret this result as normal/abnormal . Mucus (test Rare code = 8247-9) Squam Epithel, 3 See_Comment [Automated m essage] UA (test code = The system w [facility] 87885-2) generated this result transmitted ref erence range: /HPF. Th e reference range was not used to int erpret this result as normal/abnormal . SOMMER (test code Shank Carrier ID - tech = SOMMER) [facility] HospitalURINALYSIS WITH MICROSCOPIC IF [id number] 07:11:00 Test Item Value Reference Range Interpretation [...] = 463) SOURCE(BEAKER) (test code = 2795) Shank Carrier ID - [auto]Shank Carrier ID - techURINALYSIS HOAENVMYGTV7130-57-41 07:11:00 Test Item Value Reference Range Interpretation Comments RBC UA (BEAKER) (test code = 519) 11 /HPF WBC UA (BEAKER) (test code = 520) 11 /HPF MUCUS (BEAKER) (test code = 1574) Rare SQUAMOUS EPITHELIAL (BEAKER) (test 3 /HPF code = 516) Shank Carrier ID - techDigoxin fzmaa4025-05-13 06:22:00 Test Item Value Reference Range Interpretation Comments Digoxin Lvl (test code = <0.30 0.8-2 L 21546-6) SOMMER (test code = SOMMER) Shank Carrier ID - PIDEANN L Lab Interpretation (test Abnormal code = 44958-9) [facility] HospitalDIGOXIN [id number] 06:22:00 Test Item Value Reference Range Interpretation Comments DIGOXIN LEVEL (BEAKER) (test code = < ng/mL 0.80-2.00 L 669) Shank Carrier ID - MACHELLE KJxmpsdzulujh6307-61-90 05:58:00 Test Item Value Reference Range Interpretation Comments Homocysteine (test code = 7.3 umol/L 5.1-15.4 40612-7) SOMMER (test code = SOMMER) Shank Carrier ID - PIDEANN L Lab Interpretation (test Normal code = 78417-0) [facility] HospitalTSH/Free T4 If [id number] 05:58:00 Test Item Value Reference Range Interpretation Comments TSH (test code = 4.368 See_Comment [Automated 31130-4) message] The system which generated this result transmit aida reference range : 0.350 - 4.940 uIU/mL. The reference range was not used to interpret this result as normal/abnormal . SOMMER (test code = SOMMER) Shank Carrier ID - SHAMIKADEANN L Lab Interpretation Normal (test code = 33712-7) [facility] HospitalVitamin B12 and [id number] 05:58:00 Test Item Value Reference Range Interpretation Comments Vitamin B12 (test 557 pg/mL 213-816 code = 2132-9) Folate (test code = 11.20 ng/mL See_Comment [Automa aida 2284-8) message] The system which generated this result transmit aida reference range : >=7.00. The reference range was not used to interpret this result as normal/abnormal . SOMMER (test code = SOMMER) Shank Carrier ID - PIDEANN L Lab Interpretation Normal (test code = 09106-1) [facility] HospitalHOMOCYSTEINE2021-05-20 05:58:00 Test Item Value Reference Range Interpretation Comments HOMOCYSTEINE (BEAKER) (test code = 7.3 umol/L 5.1-15.4 642) Shank Carrier ID - MACHELLE LTSH/FREE T4 IF [id number] 05:58:00 Test Item Value Reference Range Interpretation Comments THYROID STIMULATING HORMONE 4.368 uIU/mL 0.350-4.940 (BEAKER) (test code = 772) Shank Carrier ID - MACHELLE LVITAMIN B12 AND [id number] 05:58:00 Test Item Value Reference Range Interpretation Comments VITAMIN B12 557 pg/mL 213-816 (BEAKER) (test code = 774) FOLATE (BEAKER) 11.20 ng/mL See_Comment [Automated message] (test code = 362) The system which generated this result transmitted ref erence range: >=7.00. The reference range was not used to interpr et this result as normal/abnormal . Shank Carrier ID - MACHELLE LC-Reactive [id number] 04:54:00 Test Item Value Reference Range Interpretation Comments CRP (test code = 676) 0.81 mg/dL 0-0.5 H SOMMER (test code = SOMMER) Shank Carrier ID - MACHELLE L Lab Interpretation (test Abnormal code = 83072-6) [facility] HospitalMAGNESIUM2021-05-20 04:54:00 Test Item Value Reference Range Interpretation Comments MAGNESIUM (BEAKER) 2.1 mg/dL 1.6-2.6 Specimen slightly (test code = 627) hemolyzed Shank Carrier ID - MACEHLLE [id number] 04:54:00 Test Item Value Reference Range Interpretation Comments PHOSPHORUS (BEAKER) 4.3 mg/dL 2.3-4.7 Specimen slightly (test code = 604) hemolyzed Shank Carrier ID - MACHELLE LBASIC METABOLIC [id number] 04:54:00 Test Item Value Reference Range Interpretation [...] S NOT APPLICABLE FOR DIALYSIS PATIEN TS. Shank Carrier ID - MACHELLE LC-REACTIVE [id number] 04:54:00 Test Item Value Reference Range Interpretation Comments C-REACTIVE PROTEIN (BEAKER) (test 0.81 mg/dL 0.00-0.50 H code = 676) Shank Carrier ID - MACHELLE LCBC W/PLT COUNT & AUTO [id number] 02:54:00 Test Item Value Reference Range Interpretation [...] = 2801) RAD, CHEST, 1 VIEW, NON [id number] 22:40:00Reason for exam:->strokeShould this be performed at the bedside?->Yes [facility] 1980 [...] Nieves Verified Date/Time: 02/10/2021 22:40:02 Reading Location: [address] Transitional Reading Room XR chest 1 view portable / [id number] 22:40:00Interface, External Ris In - 02/10/2021 10:42 [...] Nieves Verified Date/Time: 02/10/2021 22:40:02 Reading Location: [address] Transitional Reading Room [facility] W/PLT COUNT & AUTO [id number] 22:16:00 Test Item Value Reference Range Interpretation [...] Range Interpretation Comments BNP (test code = 44546-5) <10 0-100 SOMMER (test code = SOMMER) Shank Carrier ID - BS Lab Interpretation (test Normal code = 83163-0) [facility] HospitalB-TYPE NATRIURETIC FACTOR (BNP)2021-02-10 22:04:00 Test Item Value Reference Range Interpretation Comments B-TYPE NATRIURETIC PEPTIDE (BEAKER) < pg/mL 0-100 (test code = 700) Shank Carrier ID - BSHigh Sensitivity Troponin I ([facility] Only)2021-02-10 21:57:00 Test Item Value Reference Range Interpretation Comments Troponin I HS <4 See_Comment [Automated (test code = message] The 56882-1) system which generated this result transmitted reference range : <=17 pg/ml. The reference range was not used to interpret this result as normal/abnormal . SOMMER (test code = Shank Carrier ID - SOMMER) BSThe DIRECT SUPPORT PROFESSIONAL CAREGIVER STAT High Sensitivity Troponin-I results should be used in conjunction with other diagnostic information such as ECG, clinical observations and information, and patient symptoms to aid in the diagnosis of MS. Lab Interpretation Normal (test code = 21124-0) [facility] HospitalHIGH SENSITIVITY TROPONIN [id number] 21:57:00 Test Item Value Reference Range Interpretation Comments HIGH SENSITIVITY < pg/ml See_Comment [Automated message] TROPONIN I (test code = The system which [id number]) generated this result transmitted ref erence range: <=17. Th e reference range was not used to interpr et this result as normal/abnormal . Shank Carrier ID - BSThe DIRECT SUPPORT PROFESSIONAL CAREGIVER STAT High Sensitivity Troponin-I results should be used in conjunctionwith other diagnostic information such as ECG, clinical observations and information, and patient symptoms to aid in the diagnosis of MS.Lipid [id number] 21:54:00 Test Item Value Reference Range Interpretation Comments Triglycerides (test 171 mg/dL Specimen code = 2571-8) markedly hemolyzed Cholesterol (test 218 mg/dL Specimen code = 2093-3) markedly hemolyzed HDL (test code = 47 mg/dL 2084-9) LDL Calculated (test 137 mg/dL code = 58419-6) SOMMER (test code = Triglyceride SOMMER) Reference Range: Low Risk <150 Borderline 150-199 High Risk 200-499 Very High Risk >=500 Cholesterol Reference Range: Low Risk <200 Borderline 200-239 High Risk >240 HDL Cholesterol Reference Range: Low Risk >=60 High Risk <40 LDL Cholesterol Reference Range: Optimal <100 Near Optimal 100-129 Borderline 130-159 High 160-189 Very High >=190 Shank Carrier ID - BS [facility] HospitalLIPID [id number] 21:54:00 Test Item Value Reference Range Interpretation Comments TRIGLYCERIDES (BEAKER) 171 mg/dL Speci men markedly (test code = 540) hemolyzed CHOLESTEROL (BEAKER) 218 mg/dL Specime n markedly (test code = 631) hemolyzed HDL CHOLESTEROL (BEAKER) 47 mg/dL (test code = 976) LDL CHOLESTEROL 137 mg/dL CALCULATED (CinemagramAKER) (test code = 633) Triglyceride Reference Range: Low Risk <150 Borderline 150-199 High Risk 200-499 Very High Risk >=500Cholesterol Reference Range: Low Risk <200 Borderline 200-239 High Risk >240HDL Cholesterol Reference Range: Low Risk >=60 High Risk <40LDL Cholesterol Reference Range: Optimal <100 Near Optimal 100-129 Borderline 130-159 High 160-189 Very High >=190 Shank Carrier ID - BSComprehensive metabolic [id number] 21:52:00 Test Item Value Reference Range Interpretation Comments Protein, Total 8.0 See_Comment Specimen slig htly (test code = hemolyzed 2884-2) [Automated message] The system which generated this result transmit aida reference range : 6.0 - 8.3 gm/dL . The reference range was not u sed to interpret th is result as normal/abnormal . Albumin (test code 4.2 g/dL 3.5-5 Specimen slightly = 46043-6) hemolyzed Alkaline 135 U/L 40-150 Phosphatase (test code = 6768-6) Total Bilirubin 0.2 mg/dL 0.2-1.2 Specimen i ghtly (test code = hemolyzed 1974-) Sodium (test code = 139 meq/L 617-974 2341-2) Potassium (test 4.5 meq/L 3.5-5.1 Specimen i ghtly code = 2823-3) hemolyzed Chloride (test code 103 meq/L 98-107 = 5-0) CO2 (test code = 25 meq/L 22-29 2027-) BUN (test code = 9 mg/dL 7- 3094-0) Creatinine (test 0.78 mg/dL 0.57-1.25 Specimen [facility] code = 2160-0) hemolyzed Glucose (test code 105 mg/dL 70-105 = 2345-7) Calcium (test code 9.6 mg/dL 8.4-10.2 = 03829-7) AST (test code = 28 U/L 5-34 Specimen sl ightly 192-8) hemolyzed ALT (test code = 52 U/L 6-55 Specimen sl ightly 1742-6) hemolyzed EGFR (test code = 82 mL/min/1.73 [place] [address]-3) NOT ACCURATE CREATININE CLEARANCE IN PREDICTING GLOMERULAR FILTRATION RATE . ESTIMATED GFR I S NOT APPLICABLE FOR DIALYSIS PATIEN SOMMER (test code = Shank Carrier ID - BS SOMMER) [facility] HospitalCreatine Kinase (CK)2021-02-10 21:52:00 Test Item Value Reference Range Interpretation Comments Total CK (test code = 70 U/L 29-200 2157-6) SOMMER (test code = SOMMER) Shank Carrier ID - BS Lab Interpretation (test Normal code = 06647-0) [facility] HospitalMAGNESIUM2021-05-19 21:52:00 Test Item Value Reference Range Interpretation Comments MAGNESIUM (BEAKER) 2.2 mg/dL 1.6-2.6 Specimen slightly (test code = 627) hemolyzed Shank Carrier ID - [id number] 21:52:00 Test Item Value Reference Range Interpretation Comments PHOSPHORUS (BEAKER) 4.4 mg/dL 2.3-4.7 Specimen slightly (test code = 604) hemolyzed Shank Carrier ID - BSCOMPREHENSIVE METABOLIC [id number] 21:52:00 Test Item Value Reference Range Interpretation [...] S NOT APPLICABLE FOR DIALYSIS PATIEN TS. Shank Carrier ID - BSCREATINE KINASE (CK)2021-02-10 21:52:00 Test Item Value Reference Range Interpretation Comments CREATINE KINASE TOTAL (BEAKER) (test 70 U/L 29-200 code = 380) Shank Carrier ID - JOcVZX4424-10-03 21:46:00 Test Item Value Reference Range Interpretation Comments PTT (test code = 78417-8) 30.5 See_Comment [ Automated message] The system [employer] generated this result transmitted ref erence range: 22.5 - 3 6.0 seconds. The re ference range was not u sed to interpret this result as normal/abnor mal. Lab Interpretation (test Normal code = 21363-4) [facility] HospitalLactic acid, [id number] 21:46:00 Test Item Value Reference Range Interpretation Comments Lactate, Venous (test 1.96 mmol/L 0.5-2.2 Specim en code = 2872) markedly hemolyzed SOMMER (test code = SOMMER) Shank Carrier ID - BS Lab Interpretation Normal (test code = 28717-0) [facility] HospitalAPTT2021-05-19 21:46:00 Test Item Value Reference Range Interpretation Comments PARTIAL THROMBOPLASTIN TIME 30.5 seconds 22.5-36.0 (BEAKER) (test code = 760) LACTIC ACID, [id number] 21:46:00 Test Item Value Reference Range Interpretation Comments LACTATE BLOOD VENOUS 1.96 mmol/L 0.50-2.20 Specime n markedly (2) (BEAKER) (test hemolyzed code = 2872) Shank Carrier ID - BSProthrombin time/[id number] 21:45:00 Test Item Value Reference Interpretation Comments [...] valves. Lab Interpretation Normal (test code = 52190-0) [facility] HospitalPROTHROMBIN TIME/[id number] 21:45:00 Test Item Value Reference Range Interpretation Comments PROTIME (ARNOL) 12.7 seconds 11.9-14.2 (test code = 759) INR (ARNOL) (test 0.98 See_Comment [Automat ed message] code = 370) The system [employer] generated this result transmitted ref erence range: <=5.90. The reference range was not used to int erpret this result as normal/abnormal . RECOMMENDED COUMADIN/WARFARIN INR THERAPY RANGESSTANDARD DOSE: 2.0 - 3.0 Includes: PROPHYLAXIS forvenous thrombosis, systemic embolization; TREATMENT for venous thrombosis and/or pulmonary embolus.HIGH RISK: Target INR is 2.5-3.5 for patients with mechanical heart valves.POC-Glucose [id number] 21:39:00 Test Item Value Reference Range Interpretation Comments POC-Glucose Meter (test 93 mg/dL 70-110 : TE STED AT [facility] code = 1538) [address] [facility], [address]: Shank Carrier/Techni rhonda ID = [id number] for AILYN JAVIER Lab Interpretation (test Normal code = 15872-4) [facility] HospitalPOCT-GLUCOSE [id number] 21:39:00 Test Item Value Reference Range Interpretation Comments POC-GLUCOSE METER 93 mg/dL 70-110 : TESTED A T [facility] 6720 (ARNOL) (test code = AYLIN Rivera [facility], 1538) [address]: Shank Carrier/Techni rhonda ID = [id number] for GERTRUDE SHAY [id number] 15:45:00 Test Item Value Reference Range Interpretation Comments SURG (test code = SURG) RUN DATE: 09/30/20 [facility] - LAB PAGE 1 RUN TIME: 1545 Specimen Inquiry RUN USER: INTERFACE PATIENT: ADAM MARSH LOC: GA U #: [id number] AGE/SX: 40/F ROOM: RE09/29/20REG DR: Linus Boone MD : [birth year] BED: DIS: STATUS: [facility]: SPEC #: [id number]:S-[id number] RECD: 09/29/20 STATUS: MACIEL DEY #: [id number] WU: 09/29/[address]: Linus Boone MD ENTERED: 09/29/20 SP TYPE: SURG OTHR DR: Undefined Provider ORDERED: SURG PATH LVL 4 COPIES TO: Linus Boone MD [address] [place] [id number] Undefined Provider HISTOLOGY: TISSUE ID BLK PCS DHIRAJ LEV PROCEDURE DISPOSITION ____ ___ ___ ___ STOMACH, NOS A 1 2 PROCEDURES: SURG PATH LVL 4 (09/29/20) TISSUES: A. STOMACH, NOS - GASTRIC BIOPSY CLINICAL HISTORY R10.13, K21.9, K92.0, R14.0, R11.2, R19.7, R19.4 CPT CODES CPT CODE(S): 40660 , , , , , , FINAL DIAGNOSIS Stomach, biopsy: MILD CHRONIC GASTRITIS NEGATIVE FOR INTESTINAL METAPLASIA, DYSPLASIA, OR MALIGNANCY NEGATIVE FOR HELICOBACTER PYLORI ORGANISMS GROSS DESCRIPTION Gastric biopsy. Received in formalin are two wilkinson tissue fragments, 0.4 cm each, all as A. bk/nr Grossing performed at [facility] Pathology, [address] [place] [address], [address], [place] [address]. Boring Machine Operator Vertical: Aditya Hanson M.D. CONTINUED ON NEXT PAGE RUN DATE: 09/30/20 [facility] PAGE 2 RUN TIME: 1545 Specimen Inquiry RUN USER: INTERFACE SPEC #: [facility]:S-11- PATIENT: ADAM MARSH #[id number] (Continued) MICROSCOPIC DESCRIPTION Gastric biopsy. Sections demonstrate gastric mucosa with mild chronic inflammation. No dysplasia or malignancy is identified. No evidence of Helicobacter pylori organisms or intestinal metaplasia is seen. Signed SIGNATURE ON FILE Hector Issa 09/30/20 1545 END OF REPORT COVID 19 INHOUSE [id number] 13:41:00 Test Item Value Reference Range Interpretation Comments COVID 19 INHOUSE AG NEGATIVE Negative Per marino fulton, (test code = negative result s should [id number]) be treated aspr esumptive and, if inconsi [...] symptoms co nsistent with COVID-19. BASIC METABOLIC [id number] 13:40:00 Test Item Value Reference Range Interpretation [...] MG/DL 8.5-10.1 N - XR CHEST 1 [id number] 13:33:00 [facility] [place] : 1980 Sex: F Name: MIGUELADAM [facility] : [birth year] Age/S: 40 / F [id number] [facility] Unit #: [id number] Loc: [place] [address] Phys: Linus Boone MD Acct: [id number] Dis Date: Status: PRE [facility] [place] PHONE #: [phone] Exam Date: 09/28/2020 1326 FAX #: Reason: PREOP EXAMS: CPT: [id number] XR CHEST 1 V 43603 Fluoro Time: DAP (Gy m2): Air Kerma [...] PAGE 1 Signed Report Name: ADAM MARSH [place] : 1980 Age/S: 40 / F [address] [place] [address] Unit #: [id number] Loc: [place] [address] Phys: Linus Boone MD Acct: [id number] Dis Date: Status: PRE [facility] [place] #: [phone] Exam Date: 09/28/2020 1324 FAX #: Reason: PREOP EXAMS: CPT: [id number] XR CHEST 1 V 65999 Fluoro Time: DAP (Gy m2): Air Kerma (mGy): <Continued> Technologist: RT Emily(R)(CT) Trnscb Date/Time: 09/28/2020 (2523) 16 Orig Print D/T: S: 09/28/2020 (4492) PAGE 2 SignedReportPROTHROMBIN [id number] 13:29:00 Test Item Value Reference Range Interpretation Comments PT PATIENT (test code = PTP) 10.6 SECONDS 9.3-12.9 N INTERNATIONAL NORMAL RATIO 0.95 INR Unit 0.8-1.2 N (test code = INR) THROMBOPLASTIN TIME [id number] 13:29:00 Test Item Value Reference Range Interpretation Comments THROMBOPLASTIN TIME PARTIAL 28.0 SECONDS 26-35 N (test code = PTT) CBC W/AUTO [id number] 13:26:00 Test Item Value Reference Range Interpretation [...] code NO DIFF/SCN CRITERIA = MDIFF) POCT-GLUCOSE [id number] 10:22:00 Test Item Value Reference Range Interpretation Comments POC-GLUCOSE METER 102 mg/dL 70-110 TESTED AT [facility] 6720 (ARNOL) (test code = [place] 1538) [address] MR, MRA, BRAIN, WITHOUT [id number] 09:32:00Reason for exam:->Ischemic Stroke EvaluationFINAL REPORT MRA Head CLINICAL HISTORY: Ischemic Stroke TECHNIQUE: MRA of the head utilizing 3-D indf-tb-xayhbb technique, with 3-D reconstructions. COMPARISON: None FINDINGS: There is no evidence of intracranial aneurysm, focal stenosis, or major branch vessel occlusion. IMPRESSION: No evidence for a major [place] proximal branch vessel occlusion. MRA Neck CLINICAL HISTORY: Ischemic Stroke TECHNIQUE: MRA of the neck utilizing 2-D and 3-D babf-le-vsqwdv technique, with 3-D reconstructions. COMPARISON: None FINDINGS: The carotid arteries in the neck are patent including their bifurcations. There is antegrade flow in the vertebral arteries in the neck. IMPRESSION: No evidence of hemodynamically significant stenosis in the cervical carotid or vertebral arteries by NASCET criteria. Signed: Santos Winn MDReport Verified Date/Time: 08/21/2018 09:32:09 Reading Location: [facility] C0[facility] Neuro Reading Room MR, MRA, NECK, WITHOUT IV [id number] 09:32:00Reason for exam:->Ischemic Stroke EvaluationFINAL REPORT MRA Head CLINICAL HISTORY: Ischemic Stroke TECHNIQUE: MRA of the head utilizing 3-D zmri-eq-cihvdy technique, with 3-D reconstructions. COMPARISON: None FINDINGS: There is no evidence of intracranial aneurysm, focal stenosis, or major branch vessel occlusion. IMPRESSION: No evidence for a major [place] proximal branch vessel occlusion. MRA Neck CLINICAL HISTORY: Ischemic Stroke TECHNIQUE: MRA of the neck utilizing 2-D and 3-D edhr-do-hxgnjb technique, with 3-D reconstructions. COMPARISON: None FINDINGS: The carotid arteries in the neck are patent including their bifurcations. There is antegrade flow in the vertebral arteries in the neck. IMPRESSION: No evidence of hemodynamically significant stenosis in the cervical carotid or vertebral arteries by NASCET criteria. Signed: Santos Winn Verified Date/Time: 08/21/2018 09:32:09 Reading Location: [address] Reading Room MR, BRAIN, WITHOUT [id number] 09:25:00Reason for exam:- >Ischemic Stroke EvaluationFINAL REPORT [...] Winn Verified Date/Time: 08/21/2018 09:25:25 Reading Location: [address] Neuro R eading Room POCT-GLUCOSE [id number] 21:26:00 Test Item Value Reference Range Interpretation Comments POC-GLUCOSE METER 119 mg/dL 70-110 H TESTED AT [place] [id number] ([facility]) (test code = AYLIN [place] 1538) [address] POCT-GLUCOSE [id number] 18:03:00 Test Item Value Reference Range Interpretation Comments POC-GLUCOSE METER 119 mg/dL 70-110 H TESTED AT [place] [address] ([facility]) (test code = AYLIN [place] [facility] 1538) [address] POCT-GLUCOSE [id number] 12:39:00 Test Item Value Reference Range Interpretation Comments POC-GLUCOSE METER 120 mg/dL 70-110 H TESTED AT [place] [address] ([facility]) (test code = AYLIN [place] [facility] 1538) [address] RAD, CHEST, 1 VIEW, NON [id number] 12:04:00Reason for exam:->To Locate Heart Device (Pacemaker)Should [...] MDReport Verified Date/Time: 08/20/2018 12:04:06 Reading Location: [facility] Radiology Reading Room POCT-GLUCOSE [id number] 09:17:00 Test Item Value Reference Range Interpretation Comments POC-GLUCOSE METER 121 mg/dL 70-110 H TESTED AT [place] [address] ([facility]) (test code = AYLIN [place] [facility] 1538) [address] BASIC METABOLIC [id number] 06:56:00 Test Item Value Reference Range Interpretation [...] NOT APPLICABLE FOR DIALYSIS PATIEN TS. POCT-GLUCOSE [id number] 21:09:00 Test Item Value Reference Range Interpretation Comments POC-GLUCOSE METER 109 mg/dL 70-110 TESTED AT [place] [address] ([facility]) (test code = [facility] Miguel [facility] 1538) [address] POCT-GLUCOSE [id number] 17:15:00 Test Item Value Reference Range Interpretation Comments POC-GLUCOSE METER 117 mg/dL 70-110 H TESTED AT [place] [address] ([facility]) (test code = [facility] 1538) [address] VITAMIN B12 AND [id number] 06:39:00 Test Item Value Reference Range Interpretation Comments VITAMIN B12 (BEAKER) (test code = 524 pg/mL 213-816 774) FOLATE (BEAKER) (test code = 362) 13.5 ng/mL >=7.0 BASIC METABOLIC [id number] 05:48:00 Test Item Value Reference Range Interpretation Comments SODIUM (BEAKER) 139 meq/L 136-145 (test code = 381) POTASSIUM (BEAKER) 4.0 meq/L 3.5-5.1 (test code = 379) CHLORIDE (BEAKER) 107 meq/L 98-107 (test code = 382) CO2 (BEAKER) (test 24 meq/L - code = 355) BLOOD UREA NITROGEN 11 [...] S NOT APPLICABLE FOR DIALYSIS PATIEN TS. [id number] 15:42:00 Test Item Value Reference Range Interpretation Comments RPR SCREEN (BEAKER) (test code = Nonreactive Nonreactive 420) HEMOGLOBIN [id number] 09:14:00 Test Item Value Reference Range Interpretation Comments HEMOGLOBIN A1C (BEAKER) (test code = 5.3 % 4.3-6.1 368) TSH/FREE T4 IF [id number] 04:49:00 Test Item Value Reference Range Interpretation Comments THYROID STIMULATING HORMONE 3.18 uIU/mL 0.35-4.94 (BEAKER) (test code = 772) BASIC METABOLIC [id number] 04:38:00 Test Item Value Reference Range Interpretation [...] NOT APPLICABLE FOR DIALYSIS PATIEN TS. LIPID [id number] 04:38:00 Test Item Value Reference Range Interpretation [...] 130-159 High 160-189 Very High >=190HEPATIC FUNCTION [id number] 04:38:00 Test Item Value Reference Range Interpretation [...] (test code = 413) AFB Culture and [id number] 13:24:00Specimen/Source: Wound/PACEMAKERCollected: 09/05/2017 19:45 Status: Final Last Updated: 11/01/2017 13:24 LCA-Cyyvf-Lclkplduyify (Final) (Final) 09/07/17 No acid fast bacill seen on direct smear Culture Result (Final) (Final) 11/01/17 No growth of AFB at six (6) weeksFungus Culture with [id number] 12:12:00 Specimen/Source: Wound/PACEMAKERCollected: 09/05/2017 19:45 Status: Final Last Updated: 10/22/2017 12:12 Fungal Smear Result (Final) (Final) 09/06/17 No yeast or hyphae seen Culture Result (Final) (Final) 10/22/17 No fungus isolated at 6 weeksCulture, Blood [id number] 08:23:00Specimen: BloodCollected: 09/04/2017 20:30 Status: Final Last Updated: 09/10/2017 08:23 Culture Result (Final) (Final) No Growth After 5 DaysCulture, Blood [id number] 08:23:00Specimen: BloodCollected: 09/04/2017 20:15 Status: Final Last Updated: 09/10/2017 08:23 Culture Result (Final) (Final) No Growth After 5 DaysCulture, Wound [id number] 08:52:00Specimen: WoundCollected: 09/05/2017 19:45 Status: Final Last Updated: 09/08/2017 08:52 Gram Stain (Final) (Final) 09/06/17 No organisms seen, Few WBC's Culture Result (Final) (Final) 09/08/17 Anaerobic culture:No anaerobes isolated at 3 days Isolate (Final) (Final) 09/07/17Few Staph-coag positive Isolate Staph-coag positive JERMAINE (mcg/ml) Amoxicillin/Clav (AUG)<=4/2 Susceptible Ampicillin (AM) >8 Resistant Ampicillin/Sulb (A/S) <=8/4 Susceptible Cefazolin (CFZ) <=4 Susceptible Ceftriaxone (LAP RUNNER) <=4 Susceptible Chloramphenicol (C) <=8 Susceptible Ciprofloxacin (CP) <=1 Susceptible Clindamycin (CM) 0.5 Susceptible Erythromycin (E) <=0.25 Susceptible Gentamicin (GM) <=1 Susceptible Imipenem (IMP) <=4 Susceptible Levofloxacin (LEV) <=0.5 Susceptible Linezolid (LNZ) 4 Susceptible Oxacillin (OX1) 0.5 Susceptible Penicillin (P) >8 Resistant Rifampin (RA) <=1 Susceptible Tetracycline (TE) <=1 Susceptible Trimethoprim/Sulfa <=0.5/9.Susceptible (SXT) 5 Vancomycin (VA) 2 SusceptibleRenal [id number] 08:51:00 Test Item Value Reference Range Interpretation [...] National Kidney Foundation,http :[email or web address] ep.nih.gov CBC with [id number] 07:39:00 Test Item Value Reference Range Interpretation [...] code = ALYMPH) 1.7 K/cumm 0.5-4.6 N [place] Abs (test code = AMONO) 0.3 K/cumm 0.0-1.2 N Eos Abs (test code = AEOS) 0.29 K/cumm 0.00-0.74 N Baso Abs (test code = ABASO) 0.0 K/cumm 0.00-0.21 N Vancomycin, [id number] 12:33:00 Test Item Value Reference Range Interpretation Comments Melony Harman (test code = VANTR) 7.9 ug/mL 10.0-20.0 L Magnesium, [id number] 06:37:00 Test Item Value Reference Range Interpretation Comments Magnesium (test code = MG) 2.4 mg/dL 1.7-2.5 N Renal [id number] 06:29:00 Test Item Value Reference Range Interpretation [...] National Kidney Foundation,http ://nkd ep.nih.gov BHCG, Serum, [id number] 06:26:00 Test Item Value Reference Range Interpretation Comments Preg Qual [Se] (test code = BSHCG) Negative Negative N CBC with [id number] 06:24:00 Test Item Value Reference Range Interpretation [...] code = ALYMPH) 1.6 K/cumm 0.5-4.6 N [place] Abs (test code = AMONO) 0.4 K/cumm 0.0-1.2 N Eos Abs (test code = AEOS) 0.18 K/cumm 0.00-0.74 N Baso Abs (test code = ABASO) 0.0 K/cumm 0.00-0.21 N XR CHEST 1 [id number] 16:29:55XR CHEST 1 VIEWLOCATION: [id number]: None.INDICATION: REVIEW PICC LINE PLACEMENTDISCUSSION:AP chest and [...] = TSH) 3.44 mIU/mL 0.270-4.200 N Lipid [id number] 05:47:00 Test Item Value Reference Range Interpretation Comments Cholesterol (test 160 mg/dL 0-200 N code = CHOL) Triglycerides (test 126 mg/dL 9-200 N code = TRIG) HDL (test code = 35 mg/dL 50-60 L HDL) Chol/HDL (test code 4.6 Ratio 0.0-4.4 H = CHOLPHDL) LDL, Calculated 100 0-130 N (NOTE)RISK O F HEART (test code = LDLC) DISEASEPu blished by [place] Heart AssociationAnal yte Optim al Boderline Increased RiskC HOL <200 200-239 >240TRI G <150 150-199 >200HDL Male: >60 <40HDL Female: >60 <50 LDL < 100 130-15 9 >160 LDL NEAR OPTIMAL IS 100- 129 VLDL (test code = 25 mg/dL 5-40 N VLDL) LDL/HDL (test code = 3 LDLPHDL) Basic Metabolic [id number] 05:47:00 Test Item Value Reference Range Interpretation [...] the National Kidney Foundation,http ://nkd ep.nih.gov Magnesium, [id number] 05:47:00 Test Item Value Reference Range Interpretation Comments Magnesium (test code = MG) 2.3 mg/dL 1.7-2.5 N CBC with [id number] 05:36:00 Test Item Value Reference Range Interpretation [...] code = ALYMPH) 2.2 K/cumm 0.5-4.6 N [place] Abs (test code = AMONO) 0.3 K/cumm 0.0-1.2 N Eos Abs (test code = AEOS) 0.24 K/cumm 0.00-0.74 N Baso Abs (test code = ABASO) 0.0 K/cumm 0.00-0.21 N Partial Thromboplastin [id number] 21:26:00 Test Item Value Reference Range Interpretation Comments aPTT (test code = PTT) 29.00 seconds 24.39-37.25 N Prothrombin [id number] 21:26:00 Test Item Value Reference Range Interpretation Comments PT (test code = PT) 10.70 seconds 9.78-13.35 N INR (test code = INR) 0.95 Ratio 0.6-1.2 N Comprehensive Metabolic [id number] 21:23:00 Test Item Value Reference Range Interpretation [...] National Kidney Foundation,http ://nkd ep.nih.gov CBC with [id number] 21:16:00 Test Item Value Reference Range Interpretation [...] code = ALYMPH) 2.2 K/cumm 0.5-4.6 N [place] Abs (test code = AMONO) 0.4 K/cumm 0.0-1.2 N Eos Abs (test code = AEOS) 0.17 K/cumm 0.00-0.74 N Baso Abs (test code = ABASO) 0.1 K/cumm 0.00-0.21 N
[2021-12-17 03:53] LABS: Hematocrit 43.6 % (36.0-45.0); Lymphocytes % 20.5 % (15.3-44.8); MPV 8.5 fL (7.6-11.3); RBC Red Blood Cell Count 5.09 M/uL (3.86-4.86)
[2021-12-17] MEDS ORDERED: HYDROMORPHONE HCL 0.5 MG/0.5 ML INJ ONE (04:04)
[2021-12-17] MEDS ORDERED: ONDANSETRON 4 MG/2 ML VIAL ONE (04:05)
[2021-12-17] MEDS ORDERED: CEFTRIAXONE 1000 MG/VIAL ONE (04:05)
[2021-12-17] MEDS ORDERED: CEPHALEXIN 250 MG CAP ONE (04:05)
[2021-12-17] MEDS ORDERED: NA CHLORIDE 0.9% 50 ML ONE (04:05)
[2021-12-17 04:17] LABS: Albumin 4.1 g/dL (3.4-5.0); Bilirubin Total 0.5 mg/dL (0.2-1.0); Potassium 4.3 mmol/L (3.5-5.1); Protein, Total 8.3 g/dL (6.4-8.2)
--- NOTE | 2021-12-17 04:23 | EDPHYS ---
Physician Documentation [facility] Name: Jenni Draper Age: 41 yrs Sex: Female : 1980 Arrival Date: 12/17/2021 Time: 02:47 Bed 7 Private MD: WILLY Physician Caio Aceves HPI: 12/17 03:27 This 41 yrs old Female presents to ER via Ambulatory with complaints of taty Toothache, SWOLLEN FACE. 03:27 The patient presents with pain, redness, swelling. The problem is located in the upper taty left second bicuspid, upper left first molar and lower left first molar. Onset: The symptoms/episode began/occurred yesterday. Duration: The symptoms are continuous, and are steadily getting worse. Modifying factors: The symptoms are alleviated by nothing, the symptoms are aggravated by chewing, food. Associated signs and symptoms: Pertinent positives: nausea, pain, swelling. Severity of symptoms: At their worst the symptoms were mild. The patient has experienced a previous episode, many years ago, . 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 lp1 Historical: - Allergies: 03:08 PENICILLINS; lp1 03:08 Clindamycin; lp1 03:08 Benadryl; lp1 03:08 Iodine; lp1 03:08 Diltiazem; lp1 03:08 tramadol; lp1 03:08 Aspirin; lp1 03:08 Adhesives; lp1 03:08 Latex, Natural Rubber; lp1 03:08 ivabradine; lp1 03:08 Bactrim; lp1 03:08 Cipro IV; lp1 03:08 coconut oil; lp1 03:08 Detrol; lp1 03:08 Doxycycline; lp1 03:08 FISH PRODUCT DERIVATIVES; lp1 03:08 GABAPENTIN; lp1 03:08 Morphine; lp1 - Home Meds: 03:08 albuterol sulfate 2.5 mg /3 mL (0.083 %) Inhl nebu 3 mL 3 times per day [Active]; lp1 apixaban 5 mg Oral tab 1 tab 2 times per day [Active]; carvedilol 25 mg Oral tab 1 tab 2 times per day [Active]; Crestor 5 mg Oral tab 1 tab once daily [Active]; digoxin 125 mcg (0.125 mg) Oral tab 1 tab once daily [Active]; Keppra 750 mg Oral tab 1 tab [Active]; Lasix 20 mg Oral tab 1 tab [Active]; Nexium 20 mg Oral cpDR 1 cap once daily [Active]; nitroglycerin 0.4 mg Oral [Active]; pregabalin 50 mg Oral cap 1 cap 3 times per day [Active]; Ubrelvy 100 mg Oral tab 1 tab [Active]; venlafaxine 150 mg Oral cp24 1 cap once daily [Active]; Vraylar 3 mg Oral cap 1 cap once daily [Active]; Xanax 0.25 mg Oral tab 1 tab [Active]; - PMHx: 03:08 Asthma; Atrial fibrillation; CVA; Depression; DVT; Hypertensive disorder; Migraine; lp1 Seizure; TIA; - PSHx: 03:08 Cholecystectomy; left shoulder; Ligation of fallopian tube; pace maker placement; right lp1 hand cyst removal; - Immunization history:: Adult Immunizations up to date. - Social history:: Smoking status: Patient denies any tobacco usage or history of. - Family history:: not pertinent. ROS: 03:27 Constitutional: Negative for fever, chills, and weight loss, Eyes: Negative for injury, taty pain, redness, and discharge, Neck: Negative for injury, pain, and swelling, Cardiovascular: Negative for chest pain, palpitations, and edema, Respiratory: Negative for shortness of breath, cough, wheezing, and pleuritic chest pain, Abdomen/GI: Negative for abdominal pain, nausea, vomiting, diarrhea, and constipation, Back: Negative for injury and pain, : Negative for injury, bleeding, discharge, and swelling, MS/Extremity: Negative for injury and deformity, Skin: Negative for injury, rash, and discoloration, Neuro: Negative for headache, weakness, numbness, tingling, and seizure. 03:27 ENT: Positive for Gum pain Teeth pain Exam: 03:27 Constitutional: This is a well developed, well nourished patient who is awake, alert, taty and in no acute distress. Eyes: Pupils equal round and reactive to light, extra-ocular motions intact. Lids and lashes normal. Conjunctiva and sclera are non-icteric and not injected. Cornea within normal limits. Periorbital areas with no swelling, redness, or edema. Neck: Trachea midline, no thyromegaly or masses palpated, and no cervical lymphadenopathy. Supple, full range of motion without nuchal rigidity, or vertebral point tenderness. No Meningismus. Chest/axilla: Normal chest wall appearance and motion. Nontender with no deformity. No lesions are appreciated. Cardiovascular: Regular rate and rhythm with a normal S1 and S2. No gallops, murmurs, or rubs. Normal PMI, no JVD. No pulse deficits. Respiratory: Lungs have equal breath sounds bilaterally, clear to auscultation and percussion. No rales, rhonchi or wheezes noted. No increased work of breathing, no retractions or nasal flaring. Abdomen/GI: Soft, non-tender, with normal bowel sounds. No distension or tympany. No guarding or rebound. No evidence of tenderness throughout. Back: No spinal tenderness. No costovertebral tenderness. Full range of motion. Skin: Warm, dry with normal turgor. Normal color with no rashes, no lesions, and no evidence of cellulitis. MS/ Extremity: Pulses equal, no cyanosis. Neurovascular intact. Full, normal range of motion. Neuro: Awake and alert, GCS 15, oriented to person, place, time, and situation. Cranial nerves II-XII grossly intact. Motor strength 5/5 in all extremities. Sensory grossly intact. Cerebellar exam normal. Normal gait. 03:27 Head/face: Noted is erythema, hematoma, swelling, that is moderate, of the left cheek and left jaw, tenderness, that is moderate, of the left cheek and left jaw. Vital Signs: 03:02 Weight 58.51 kg (R); Height 4 ft. 11 in. (149.86 cm); Pain 9/10; lp1 03:03 BP 124 / 85 LA Supine (auto/reg); Pulse 98; Resp 18 S; Temp 98.7(T); Pulse Ox 99% on tk1 R/A; Pain 1010; 04:00 BP 121 / 85 LA Supine (auto/reg); Pulse 99 MON; Resp 18 S; Pulse Ox 97% on R/A; Pain tk1 1010; 04:40 Pain 4/10; tk1 05:00 BP 107 / 79 LA Supine (auto/reg); Pulse 96 MON; Resp 18 S; Pulse Ox 96% on R/A; Pain tk1 4/10; 03:02 Body Mass Index 26.05 (58.51 kg, 149.86 cm) lp1 MDM: 02:54 Patient medically screened. [facility] 03:32 Differential diagnosis: dental caries, gingivitis, dental abscess. Data reviewed: vital taty signs, nurses notes, lab test result(s). Data interpreted: surveillance system monitor: rate is 98 beats/min, rhythm is regular, Pulse oximetry: on room air is 99 %. Test interpretation: by ED physician or midlevel provider: ECG, plain radiologic studies. Counseling: I had a detailed discussion with the patient and/or guardian regarding: the historical points, exam findings, and any diagnostic results supporting the discharge/admit diagnosis, lab results, radiology results, the need for outpatient follow up, for definitive care, a dentist, an oral maxilofacial specialist. 12/17 03:27 Order name: CBC with Diff; Complete Time: 04:22 taty 12/17 03:27 Order name: Comprehensive Metabolic Panel; Complete Time: 04:22 [facility] Administered Medications: 04:00 Drug: KeFLEX (cephalexin) 500 mg Route: PO; tk1 05:00 Follow up: Response: No adverse reaction tk1 04:05 Drug: Zofran (Ondansetron) 4 mg Route: IVP; Rate: 2 mg/min; Infused Over: 2 mins; Site: tk1 right hand; 04:35 Follow up: Response: Nausea is decreased tk1 04:10 Drug: Dilaudid (HYDROmorphone) 0.5 mg Route: IVP; Rate: 0.25 mg/min; Infused Over: 2 tk1 mins; Site: right hand; 04:40 Follow up: Pain 4/10 Adult; Response: Pain is decreased tk1 04:15 Drug: Rocephin (cefTRIAXone) 2 grams Route: IV; Rate: per protocol; Infused Over: 30 tk1 mins; Site: right hand; Delivery: Primary tubing; 04:45 Follow up: Response: No adverse reaction; IV Status: Completed infusion; IV Intake: 75jfoh6 05:12 Not Given (Physician Discretion): Dilaudid (HYDROmorphone) 0.5 mg IVP once; RASS on tk1 ADMIN: Combtv4, Very Agttd3, Agttd2, Rstlss1, AlertClm0, Drwsy-1, Lt Sdtn-2, Mod Sdtn-3, Dp Sdtn-4, UnArsble-5 Disposition Summary: 12/17/21 04:23 Discharge Ordered Location: Home taty Problem: new taty Symptoms: have improved taty Condition: Stable taty Diagnosis - Dental root caries taty - Dental caries, unspecified taty - Abnormal results of liver function studies taty Followup: taty - With: Private Physician - When: 1 - 2 days - Reason: Recheck today's complaints, Continuance of care, Re-evaluation by your physician Discharge Instructions: - Discharge Summary Sheet taty - Dental Caries, Adult taty - Dental Pain taty - Dental Pain, Zdln-bc-Wtda taty - Diet and Dental Disease taty - Dental Caries, Adult, Jbhy-eh-Ztjt taty Forms: - Medication Reconciliation Form taty - Thank You Letter taty - Antibiotic Education taty - Prescription Opioid Use taty Prescriptions: - Cephalexin 500 mg Oral Capsule - take 1 capsule by ORAL route every 6 hours for 10 days; 40 capsule; Refills: 0, taty Product Selection Permitted - Tylenol-Codeine #3 300 mg-30 mg Oral - take 2 tablet by ORAL route every 6 hours; 20 tablet; Refills: 0, Product [facility] Selection Permitted Signatures: Dispatcher [employer] Caio Marques MD MD cha Pena, Laura RN RN lp1 Jazzmine Johnson tk1
--- NOTE | 2021-12-17 04:23 | ER ---
Nurse's Notes [facility] Name: Jenni Draper Age: 41 yrs Sex: Female : 1980 Arrival Date: 12/17/2021 Time: 02:47 Bed 7 Private MD: Diagnosis: Dental root caries;Dental caries, unspecified;Abnormal results of liver function studies Presentation: 12/17 03:02 Chief complaint: Patient states: had 3 teeth pulled by clinic in [place], reports left lp1 clinic without any pain medication or antibiotics; Presents to ED with pain and swelling to left side of face. Coronavirus screen: At this time, the client does not indicate any symptoms associated with coronavirus-19. Ebola Screen: No symptoms or risks identified at this time. Risk Assessment: Do you want to hurt yourself or someone else? Patient reports no desire to harm self or others. Onset of symptoms was December 17, 2021. 03:02 Acuity: LYUBOV 3 lp1 03:02 Method Of Arrival: Ambulatory lp1 05:32 Initial Sepsis Screen: Does the patient meet any 2 criteria? No. Patient's initial tk1 sepsis screen is negative. Does the patient have a suspected source of infection? No. Patient's initial sepsis screen is negative. 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 lp1 Historical: - Allergies: 03:08 PENICILLINS; lp1 03:08 Clindamycin; lp1 03:08 Benadryl; lp1 03:08 Iodine; lp1 03:08 Diltiazem; lp1 03:08 tramadol; lp1 03:08 Aspirin; lp1 03:08 Adhesives; lp1 03:08 Latex, Natural Rubber; lp1 03:08 ivabradine; lp1 03:08 Bactrim; lp1 03:08 Cipro IV; lp1 03:08 coconut oil; lp1 03:08 Detrol; lp1 03:08 Doxycycline; lp1 03:08 FISH PRODUCT DERIVATIVES; lp1 03:08 GABAPENTIN; lp1 03:08 Morphine; lp1 - Home Meds: 03:08 albuterol sulfate 2.5 mg /3 mL (0.083 %) Inhl nebu 3 mL 3 times per day [Active]; lp1 apixaban 5 mg Oral tab 1 tab 2 times per day [Active]; carvedilol 25 mg Oral tab 1 tab 2 times per day [Active]; Crestor 5 mg Oral tab 1 tab once daily [Active]; digoxin 125 mcg (0.125 mg) Oral tab 1 tab once daily [Active]; Keppra 750 mg Oral tab 1 tab [Active]; Lasix 20 mg Oral tab 1 tab [Active]; Nexium 20 mg Oral cpDR 1 cap once daily [Active]; nitroglycerin 0.4 mg Oral [Active]; pregabalin 50 mg Oral cap 1 cap 3 times per day [Active]; Ubrelvy 100 mg Oral tab 1 tab [Active]; venlafaxine 150 mg Oral cp24 1 cap once daily [Active]; Vraylar 3 mg Oral cap 1 cap once daily [Active]; Xanax 0.25 mg Oral tab 1 tab [Active]; - PMHx: 03:08 Asthma; Atrial fibrillation; CVA; Depression; DVT; Hypertensive disorder; Migraine; lp1 Seizure; TIA; - PSHx: 03:08 Cholecystectomy; left shoulder; Ligation of fallopian tube; pace maker placement; right lp1 hand cyst removal; - Immunization history:: Adult Immunizations up to date. - Social history:: Smoking status: Patient denies any tobacco usage or history of. - Family history:: not pertinent. Screenin:09 Abuse screen: Denies threats or abuse. Denies injuries from another. Nutritional tk1 screening: No deficits noted. Tuberculosis screening: No symptoms or risk factors identified. Fall Risk None identified. Assessment: 03:09 General: Appears uncomfortable, obese, well developed, well nourished, Behavior is tk1 cooperative, agitated. Pain: Complains of pain in left side face and mouth Pain does not radiate. Pain currently is 10 out of 10 on a pain scale. Quality of pain is described as aching, Pain began 1 day ago. Neuro: Level of Consciousness is awake, alert, obeys commands, Oriented to person, place, time, situation, Appropriate for age Pr Intern are equal bilaterally Moves all extremities. Cardiovascular: Capillary refill < 3 seconds is brisk in bilateral fingers. Respiratory: Airway is patent Respiratory effort is even, unlabored, Respiratory pattern is regular, symmetrical. GI: No deficits noted. No signs and/or symptoms were reported involving the gastrointestinal system. : No deficits noted. No signs and/or symptoms were reported regarding the genitourinary system. EENT: Patient with new extractions noted. States, they were pulled yesterday at noon.. Reports pain in left side of face and left side of mouth. Derm: No deficits noted. No signs and/or symptoms reported regarding the dermatologic system. Musculoskeletal: No deficits noted. No signs and/or symptoms reported regarding the musculoskeletal system. 04:05 Reassessment: No changes from previously documented assessment. Patient and/or family tk1 updated on plan of care and expected duration. Pain level reassessed. Patient is alert, oriented x 3, equal unlabored respirations, skin warm/dry/pink. Pain: Pain currently is 10 out of 10 on a pain scale. 05:17 Reassessment: D/C per MD order. Discharge/Prescription instructions given to patient tk1 and . Verbalized understanding. Vital Signs: 03:02 Weight 58.51 kg (R); Height 4 ft. 11 in. (149.86 cm); Pain 9/10; lp1 03:03 BP 124 / 85 LA Supine (auto/reg); Pulse 98; Resp 18 S; Temp 98.7(T); Pulse Ox 99% on tk1 R/A; Pain 10/10; 04:00 BP 121 / 85 LA Supine (auto/reg); Pulse 99 MON; Resp 18 S; Pulse Ox 97% on R/A; Pain tk1 1010; 04:40 Pain 4/10; tk1 05:00 BP 107 / 79 LA Supine (auto/reg); Pulse 96 MON; Resp 18 S; Pulse Ox 96% on R/A; Pain tk1 410; 03:02 Body Mass Index 26.05 (58.51 kg, 149.86 cm) lp1 ED Course: 02:47 Patient arrived in ED. ag3 02:54 Caio Aceves MD is Attending Physician. taty 02:55 Jazzmine Johnson is Primary Nurse. tk1 03:08 Triage completed. lp1 03:08 Arm band placed on. lp1 03:09 Patient has correct armband on for positive identification. Bed in low position. Call tk1 light in reach. Adult w/ patient. Pulse ox on. NIBP on. 03:09 No provider procedures requiring assistance completed. tk1 03:39 Inserted saline lock: 22 gauge in right hand, using aseptic technique. Blood collected. tk1 05:13 IV discontinued, intact, bleeding controlled, No redness/swelling at site. Pressure tk1 dressing applied. Administered Medications: 04:00 Drug: KeFLEX (cephalexin) 500 mg Route: PO; tk1 05:00 Follow up: Response: No adverse reaction tk1 04:05 Drug: Zofran (Ondansetron) 4 mg Route: IVP; Rate: 2 mg/min; Infused Over: 2 mins; Site: tk1 right hand; 04:35 Follow up: Response: Nausea is decreased tk1 04:10 Drug: Dilaudid (HYDROmorphone) 0.5 mg Route: IVP; Rate: 0.25 mg/min; Infused Over: 2 tk1 mins; Site: right hand; 04:40 Follow up: Pain 4/10 Adult; Response: Pain is decreased tk1 04:15 Drug: Rocephin (cefTRIAXone) 2 grams Route: IV; Rate: per protocol; Infused Over: 30 tk1 mins; Site: right hand; Delivery: Primary tubing; 04:45 Follow up: Response: No adverse reaction; IV Status: Completed infusion; IV Intake: [id number] 05:12 Not Given (Physician Discretion): Dilaudid (HYDROmorphone) 0.5 mg IVP once; RASS on tk1 ADMIN: Combtv4, Very Agttd3, Agttd2, Rstlss1, AlertClm0, Drwsy-1, Lt Sdtn-2, Mod Sdtn-3, Dp Sdtn-4, UnArsble-5 Intake: 04:45 IV: 60ml; Total: 60ml. tk1 Outcome: 04:23 Discharge ordered by MD. posey 05:13 Discharged to home ambulatory, with family. tk1 05:13 Condition: improved 05:13 Discharge instructions given to patient, family, Instructed on discharge instructions, follow up and referral plans. medication usage, Demonstrated understanding of instructions, follow-up care, medications. 05:32 Patient left the ED. tk1 Signatures: Caio Aceves MD MD cha Pena, Laura RN RN lp1 Deja Brennan3 Jazzmine Johnson tk1
[2021-12-17 05:45] VITALS: TEMP 98.7
[2021-12-17 05:54] VITALS: BP 107/79; O2SAT 96
== END 2021-12-17 05:32 | disposition home or self-care (01) ==
LOC: ER 02:45
DX: K02.7 Dental root caries (principal); R79.89 Other specified abnormal findings of blood chemistry; L53.9 Erythematous condition, unspecified; I10 Essential (primary) hypertension; Z91.02 Food additives allergy status; Z91.040 Latex allergy status; Z88.0 Allergy status to penicillin; Z88.1 Allergy status to other antibiotic agents; Z88.5 Allergy status to narcotic agent; Z88.6 Allergy status to analgesic agent; Z88.8 Allergy status to other drugs, medicaments and biological substances; Z91.018 Allergy to other foods; Z95.0 Presence of cardiac pacemaker; J45.909 Unspecified asthma, uncomplicated; I48.91 Unspecified atrial fibrillation
CPT/HCPCS: 96365; 85025; 36415; 80053; 96375; 99284; J1170; J2405

== ENCOUNTER 2022-01-02 21:05 | Emergency (ER) | payer OTHER ==
--- OUTSIDE RECORDS SUMMARY | 2022-01-02 21:17 | XMS REPORT | Continuity of Care Document ---
:1980 Author Organization [facility] t Address [address] [place] [address] Care Team Providers Name Role Phone MIMA VELAZQUEZ Primary Care Physician Unavailable ZAKIA VERA Attending Clinician Unavailable Shauna Boone Attending Clinician Unavailable Main SYKES Attending Clinician Unavailable ATANASOV, T Attending Clinician Unavailable JONNY Attending Clinician Unavailable Lena MOORE Attending Clinician Unavailable Radha FONG, S Attending Clinician Jonny Hollins MD Attending Clinician Ana ABRAMS Attending Clinician Unavailable Ana Abrams DO Attending Clinician Doctor Unassigned, Name Attending Clinician Unavailable Malena VEGA Attending Clinician Omari RALPH Attending Clinician Unavailable Gabriela Alvarez MD Attending Clinician Andrea Bolanos MD Attending Clinician Sho LARSEN Attending Clinician Zakia Vera MD Attending Clinician Unavailable LEONOR Attending Clinician Unavailable LINETTE Attending Clinician Unavailable ZAKIA VERA Admitting Clinician Unavailable Ana ABRAMS Admitting Clinician Unavailable SHO Admitting Clinician Unavailable LEONOR Admitting Clinician Unavailable LINETTE Admitting Clinician Unavailable Payers Payer Name Policy Type Policy Number Effective Expiration Source Date Date GENERIC MEDICAID O [id number] 2011 00:00:00 [facility] [id number] 2011 MEDICAID 00:00:00 [facility] [id number] 2011 Met amarilys [id number] 2018 [facility] MEDICAIDMEDICAID 00:00:00 - Medica l [id number] 018-Present Problems Condition Condition Condition Status Onset Resolution Last Treating Co mments Source Name Details Category Date Date Treatment Clinician Date Elevated Elevated Disease Active Unive rs d-dimer d-dimer 03-25 ity of 00:00: [place] 00 Medical Branch Left-sided Left-sided Disease Active [facility] weakness weakness 02-12 - 00:00: Medical 00 Center Received Received Disease [facility] tissue tissue 02-12 Lu - plasminoge plasminoge 00:00: Md dical n n 00 Center activator activator (t-PA) (t-PA) less than less than 24 hours 24 hours prior to prior to arrival arrival Acute Acute Disease Active [facility] ischemic ischemic 5-20 [facility] stroke stroke 00:00: Medical 00 Center Chest pain Chest pain Disease Active 2020-0 U nivers 4-20 ity of 00:00: [place] 00 Medical Branch Inappropri Inappropri Disease Active [...] Active 2019- Univers 2-04 ity of 00:00: [place] 00 Medical Branch PVT PVT Disease Active Univers (paroxysma (paroxysma 2-04 it y of l l 00:00: [place] ventricula ventricula 00 Me dical r r Branch tachycardi tachycardi a) a) Digoxin Digoxin Disease Active Univers toxicity toxicity 2-04 ity of 00:00: [place] 00 [facility] Branch Atrial Atrial Disease Active Univers fibrillati fibrillati 2-04 it y of on on 00:00: [place] 00 Medical Branch Dyspnea Dyspnea Disease Active 2019 Univers 2-01 ity of 00:00: [place] 00 [facility] Branch Seizure Seizure Disease Active 2018-09 Univers disorder disorder 2-01 ity of 00:00: [place] 00 [facility] Branch Mitral Mitral Disease Active 2019 Univers valve valve 8-05 ity of regurgitat regurgitat [place] 00 [place] Excessive Excessive Disease Active Uni vers anticoagul anticoagul 8-05 it y of ation ation 00:00: [place] 00 [facility] Branch Deep vein Deep vein Disease Active 2019 Uni vers thrombosis thrombosis 8-05 it y of of lower of lower 00:00: [place] extremity extremity 00 [facility] Branch Anxiety Anxiety Disease Active 2019- Univers disorder disorder 8-05 ity of 00:00: [place] 00 [facility] Branch Asthma Asthma Disease Active 2019- Univers 8-05 ity of 00:00: [place] 00 Medical Branch E44.0 E44.0 Disease Active 2019- Univers Moderate Moderate 5-15 ity of protein protein 00:00: [place] calorie calorie 00 Medical malnutriti malnutriti Br anch on on Paresthesi Paresthesi Disease Active 2017-[address] a of left a of left 1-23 [facility] - arm and arm and 00:00: Medical leg leg 00 Center Dysphagia Dysphagia Disease Active 2017-09 Uni vers 10-03 ity of 00:00: [place] 00 Medical Branch Iron Iron Disease Active 2017-09 Overview: Univer s deficiency deficiency 0-19 Formattin ity of anemia, anemia, 00:00: g of this [place] unspecifie unspecifie 00 note Me dical d iron d iron might be Branch deficiency deficiency different anemia anemia from the type type original. Added automatic ally from request for surgery [id number] Abdominal Abdominal Disease Active 2017-09 Overview: Univers pain, pain, 0-19 Formattin ity of unspecifie unspecifie 00:00: g of this [place] d d 00 note Medical abdominal abdominal might be Br anch location location different from the original. Added automatic ally from request for surgery [id number] Nausea and Nausea and Disease Active 2017-09 Overview : Univers vomiting, vomiting, 0-19 Formattin i ty of intractabi intractabi 00:00: g of this [place] lity of lity of 00 note Medical vomiting vomiting might be Bran ch not not different specified, specified, from the unspecifie unspecifie original. d vomiting d vomiting Added type type automatic ally from request for surgery [id number] Non-cardia Non-cardia Disease Active U nivers c chest c chest 04-27 ity of pain pain 00:00: [place] 00 Medical Branch Essential Essential Disease Active Uni vers hypertensi hypertensi 8 it y of on on 00:00: [place] [address] Medical Branch Pacemaker Pacemaker Disease Active Uni vers 04-27 ity of 00:00: [place] [address] Medical Branch PAF PAF Disease Active Univers (paroxysma (paroxysma 04-27 it y of l atrial l atrial 00:00: [place] fibrillati fibrillati 00 Me dical on) on) Branch History of History of Disease Active 2016-09 U jayden cardiac cardiac 10-23 ity of pacemaker pac[place] 00:[place] 00 Medical [facility] Tachycardi Tachycardi Disease Active U yossiers a, a, 9- ity of unspecifie [place]specifie [place] Elevated Elevated Disease Active 2013-09 Unive rs liver liver 0-29 ity of enzymes enzymes 00:00: 00 Medical Branch Pseudoseiz Pseudoseiz Disease Active U nivers ure ure 7-22 ity of 00:00: Medical Branch Left sided Left sided Disease Active U nivers numbness numbness 6-28 ity of 00:00: Medical Branch Prediabete Prediabete Disease Active 2012-09 U nivers s s 2-31 ity of 00:00: Medical Branch Loss of Loss of Disease Active 2012-09 Univers weight weight 2-31 ity of 00:00: Medical Branch Hypothyroi Hypothyroi Disease Active 2012-09 Overview : Univers dism dism Formattin ity of 00:00: g of this note Medical might be Branch different from the original. ICD10 Diagnosis Term [employer] Hypoglycem Hypoglycem Disease Active 2012-09 Overview : Univers ia ia 10-21 Formattin ity of 00:00: g of this note Medical might be Branch different from the original. ICD10 Diagnosis Term [employer] Cerebrovas Cerebrovas Disease Resolve 2021-02-12 2021-02-12 [...] Medical ics) Center Fish FA Active SV [facility] Containi 1-04 [place] ng 00:00: d Products 00 Medical Center iodine DA Active MO [facility] 1-04 [place] 00:00: d 00 [facility] Center morphine DA Active SV [facility] 1-04 [place] 00:00: d 00 Medical Center aspirin DA Active SV 1-0 [facility] 1-04 [place] 00:00: d 00 Medical Center cephalex DA Active SV 1-0 [facility] in 1-04 [place] 00:00: d 00 [...] [facility] prim -04 [place] 00:00: d 00 [facility] Center ciproflo DA Active SV 2020-0 [facility] xacin -04 [place] 00:00: d 00 Medical Center adhesive DA Active SV 2020-0 [facility] tape 1-04 [place] 00:00: d 00 Medical Center tramadol DA Active SV 2020-0 [facility] 1-04 [place] 00:00: d 00 [facility] Center gabapent DA Active SV 2020-0 [facility] in - [place] 00:00: d 00 [facility] Center diltiaze DA Active SV 2020-0 [facility] m -04 [place] 00:00: d 00 [facility] Center diphenhy DA Active SV 2020-0 [facility] dramine - [place] 00:00: d 00 [facility] Center topirama DA Active SV 2020-0 [facility] te 1-04 [place] 00:00: d 00 Medical Center levoflox DA Active SV 2020-0 [facility] acin -04 [place] 00:00: d 00 [facility] Center quetiapi DA Active MO 1-0 [facility] ne - [place] 00:00: d 00 [facility] Center tolterod DA Active MO 1-0 [facility] ine 1-04 [place] 00:00: d 00 Medical Center latex DA Active SV 1-0 [facility] -04 [place] 00:00: d 00 [facility] Center ivabradi DA Active MO 1-0 [facility] ne - [place] 00:00: d 00 [...] DA Active SV ANAPHYLAXIS 2020-0 [facility] SHOCK 04 [place] 00:00: d 00 [facility] Center aspirin DA Active SV ANAPHYLAXIS 2020-0 [facility] SHOCK 09-28 [place] 00:00: d 00 Medical Center cephalex DA Active SV HIVES 2020-0 [facility] in -04 [place] 00:00: d 00 [facility] Center cefixime DA Active MO HIVES 2020-0 [facility] 1-04 [place] 00:00: d 00 [facility] Center doxycycl DA Active SV RASH 2020- [facility] ine 1-04 [place] 00:00: d 00 [facility] Center clindamy DA Active MO RASH 2020-0 [facility] stephan 1-04 [place] 00:00: d 00 [facility] Center sulfamet DA Active MO RASH 2020-0 [facility] hoxazole 1-04 [place] 00:00: d 00 [facility] trimetho DA Active MO RASH 2020-0 [facility] prim 1-04 [place] 00:00: d 00 [facility] ciproflo DA Active SV HIVES 2020-0 [...] acin 1-04 [place] 00:00: d 00 Medical [place] quetiapi DA Active MO RASH 2020- [facility] ne 1-04 [place] 00:00: d [facility] tolterod DA Active MO RASH [facility] ine 1-04 [place] 00:00: d 00 [facility] latex DA Active SV BLISTERS 2020- [facility] 1-04 [place] 00:00: d 00 [facility] ivabradi DA Active MO RASH [facility] ne 1-04 [place] 00:00: d 00 [facility] coconut FA Active MO RASH [facility] 1-04 [place] 00:00: d 00 [facility] Topirama Propensi Active Anaphylaxis 2019-0 M [...] Of 2019-0 Methodi m ty to Breath 9-05 st [...] s to drug Doxycycl Propensi Active Rash 2019-0 Method i ine ty to 04-29 st adverse 00:00: Hospita reaction 00 l s to drug Levoflox Propensi Active Anaphylaxis 2019-0 M ethodi acin ty to 04-29 st adverse 00:00: Hospita reaction 00 l s to drug Cefixime Propensi Active Rash 2019-0 Univer s ty to 8-05 ity of adverse 00:00: [place] reaction 00 Medical s Branch Doxycycl Propensi Active Rash 2019-0 Univer s ine ty to 805 ity of adverse 00:00: [place] reaction 00 Medical s Branch Fish Propensi Active Anaphylaxis 2019-0 Family Uni vers Containi ty to 04-29 history ity of ng adverse 00:00: of [place] Products reaction 00 allergic Medi blane s reaction. Branch FISH Drug Active High Anaphylaxis 2018- Unive rs CONTAINI Class 8-05 ity of NG 00:00: [place] PRODUCTS 00 Medical Branch DOXYCYCL DRUG Active Rash 2019- Univers INE INGREDI 8-05 ity of 00:00: [place] 00 Medical Branch CEFIXIME DRUG Active Low Rash 2018- Univers INGREDI 8-05 ity of 00:00: [place] 00 Medical Branch CEFIXIME Allergy Active Low Rash 2017-09 [facility] 10-17 00:00: 00 TRAMADOL Allergy Active Low Rash 2017-09 [facility] 10-17 00:00: 00 SULFAMET Allergy Active High Anaphylaxis 2017-09 [facility] HOXAZOLE 10-17 -TRIMETH 00:00: [place] 00 GABAPENT Allergy Active High Sob 2017-09 [facility] IN 10-17 00:00: 00 IODINE Allergy Active High Rash 2017-09 [facility] AND 10-17 IODIDE 00:00: CONTAINI 00 NG PRODUCTS MORPHINE Allergy Active High Anaphylaxis 2017-09 [facility] 10-17 00:00: 00 PENICILL Allergy Active High Anaphylaxis 2017-09 [facility] INS 10-17 00:00: 00 DIPHENHY Allergy Active [...] [facility] - adverse 00:00: Medical reaction 00 [place] Clindamy Propensi Active Rash 2017-[address] [facility] stephan ty to 10-17 [facility] - adverse 00:00: Medical reaction 00 [place] Tolterod Propensi Active Rash 2017-[address] ine ty to 10-17 [facility] - adverse 00:00: Medical reaction 00 [place] Gabapent Propensi Active Shortness Of 2017-[address] in ty to Breath, Rash 10-17 [facility] s - adverse 00:00: Medical reaction 00 [place] Iodine Propensi Active Rash 2017-[address] And ty to 10-17 [facility] - Iodide adverse 00:00: Medical Containi reaction 00 [place] ng s Products Latex Propensi Active Rash 2017-[address] ty to 10-17 [facility] - adverse 00:00: Medical reaction 00 [place] Morphine Propensi Active Anaphylaxis 2017-[address] ty to 10-17 [facility] - adverse 00:00: Medical reaction 00 [place] Penicill Propensi Active Anaphylaxis 2017-[address] ins ty to 10-17 [facility] - adverse 00:00: Medical reaction 00 [place] Quetiapi Propensi Active 2017-[address] ne ty to 10-17 [facility] - adverse 00:00: Medical reaction 00 [place] Sulfa Propensi Active Rash 2017-[address] (Sulfona ty to 10-17 [facility] - mide adverse 00:00: Medical Antibiot reaction 00 Center ics) s Cefixime Propensi Active Rash 2017-[address] ty to 10-17 [facility] - adverse 00:00: Medical reaction 00 Center s Tramadol Propensi Active Rash 2017-[address] ty to 10-17 [facility] - adverse 00:00: Medical reaction 00 [place] QUETIAPI Allergy Active 2017-09 [facility] NE [...] (See Me thodi dramine ty to Comments) 412 st adverse 00:00: Hospita reaction 00 l s to drug Gabapent Propensi Active Shortness Of Methodi in ty to Breath 4-12 st adverse 00:00: Hospita reaction 00 l s to drug Diphenhy Propensi Active Hives 2018-0 Univer s dramine ty to 4-12 ity of Hcl adverse 00:00: [place] reaction 00 Medical Branch Clindamy Propensi Active Rash 2018-0 Univer s stephan ty to 4-12 ity of adverse 00:00: [place] reaction 00 Medical [facility] Gabapent Propensi Active Rash 2018-0 Univer s in ty to 4-12 ity of adverse 00:00: [place] reaction 00 Medical Branch Iodine Propensi Active Rash 2018-0 Univers ty to 4-12 ity of adverse 00:00: [place] reaction 00 Medical [facility] Iodine Propensi Active Rash 2018-0 Methodi And ty to [address] Iodide adverse 00:00: Hospita Containi reaction 00 l ng s to Products drug DIPHENHY DRUG Active Hives 2018-0 Univers DRAMINE INGREDI 4-12 ity of HCL 00:00: [place] 00 [facility] CLINDAMY DRUG Active Rash 2018-0 Univers STEPHAN INGREDI 4-12 ity of 00:00: [place] 00 Medical [place] GABAPENT DRUG Active Rash 2018-0 Univers IN INGREDI 4-12 ity of 00:00: [place] 00 Medical [place] IODINE DRUG Active Rash 2018-0 Univers INGREDI 4-12 ity of 00:00: [place] 00 Medical [place] Morphine Propensi Active Anaphylaxis 2017-1 U nivers ty to 0-05 ity of adverse 00:00: [place] reaction 00 [facility] MORPHINE DRUG Active High Anaphylaxis 2017- Uni vers INGREDI 0-05 ity of 00:00: [place] 00 [facility] Morphine Propensi Active Anaphylaxis 2017- M ethodi ty to 005 st adverse 00:00: Hospita reaction 00 l s to drug Tramadol Propensi Active Unknown - 2017-0 Rash Uni vers ty to See comments 06-22 ity of adverse 00:00: [place] reaction 00 Medical [facility] TRAMADOL DRUG Active Unknown-Cmnt 2017-0 Un [place] INGREDI 06-22 ity of 00:00: [place] 00 Medical Branch Tramadol Propensi Active Rash 2017-0 Rash Rash Met hodi ty to 06-22 st adverse 00:00: Hospita reaction 00 l s to drug [place]iproflo [place]ensi [place] [address] Muscle U nivers xacin ty to comments 04-20 aches ity of adverse 00:00: [place] reaction 00 Medical s Branch Quetiapi Propensi Active Rash 2016-0 Univer s ne ty to 04-20 ity of Fumarate adverse 00:00: [place] reaction 00 Medical s Branch CIPROFLO DRUG Active Other-Cmnt 0 Univ ers XACIN INGREDI 04-20 ity of 00:00: [place] [facility] QUETIAPI DRUG Active Rash 2016-0 Univers NE INGREDI 04-20 ity of FUMARATE 00:00: [place] [facility] Quetiapi Propensi Active Rash 2015-0 confusion Met hodi ne ty to 04-20 st adverse 00:00: Hospita reaction 00 l s to drug Aluminum Propensi Active Anaphylaxis 2016-0 U nivers Aspirin ty to 01-18 ity of adverse 00:00: [place] reaction Medical s Branch Penicill Propensi Active Anaphylaxis 2016-0 U nivers in ty to 01-18 ity of adverse 00:00: [place] reaction Medical s Branch ALUMINUM DRUG Active High Anaphylaxis 0 Uni vers ASPIRIN INGREDI 01-18 ity of 00:00: [place] [facility] PENICILL DRUG Active High Anaphylaxis 2015-0 Uni vers IN INGREDI 01-18 ity of 00:00: [place] [facility] Adhesive Drug Active Rash 2013-0 Univers Allergy 03-20 ity of 00:00: [place] 00 Medical Branch ADHESIVE Drug Active Low Rash 2013-0 Univers Class 6- ity of 00:00: [place] 00 Medical Branch Ciproflo Propensi Active Other (See 0 Muscle Me thodi xacin ty to Comments) [address] adverse 00:00: [facility] a reaction 00 Muscle l s to aches drug Aspirin Propensi Active Anaphylaxis 2013-0 Un [place] ty to 12-31 ity of adverse 00:00: [place] reaction 00 Medical s to Branch drug ASPIRIN DRUG Active High Anaphylaxis 2013-0 Univ ers INGREDI 12-31 ity of 00:00: [...] to Not sure University of SARS-CoV-2 (event) [facility] Alcohol intake 2021-10-22 2021-10-22 Current University of 00:00:00 00:00:00 non-drinker of [facility] alcohol Branch (finding) Education 2021-03-25 2021-03-25 12 University of 00:00:00 00:00:00 [place] [facility] History SDFL 2019-10-29 2019-10-29 5 University o f Financial 00:00:00 00:00:00 [place] [facility] History [facility] Food 2019-10-29 2019-10-29 1 Univers ity of Worry 00:00:00 00:00:00 [place] [facility] History SDFL Food 2019-10-29 2019-10-29 1 Univers ity of Scarcity 00:00:00 00:00:00 [place] [facility] History [facility] 2019-10-29 2019-10-29 2 University o f Transport Med 00:00:00 00:00:00 [place] Medic al Branch History [facility] 2019-10-29 2019-10-29 2 University o f Transport Non-Med 00:00:00 00:00:00 [facility] edical Branch History [facility] 2018-09-05 2018-09-05 1 [facility] Alcohol Frequency 00:00:00 00:00:00 Hospita l Cigarettes smoked 2018-04-27 2018-04-27 Univers ity of current (pack per 00:00:00 00:00:00 [facility] ) - Reported Branch Cigarette 2018-04-27 2018-04-27 University of pack-years 00:00:00 00:00:00 [facility] Tobacco use and 2018-04-27 2018-04-27 Never used Universit y of exposure 00:00:00 00:00:00 [facility] Tobacco Comment 2018-04-27 2018-04-27 quit 16 years Univer sity of 00:00:00 00:00:00 ago [facility] History of tobacco 2003-05-09 Smoker Univer sity of use 00:00:00 [facility] Sex [birth year] Universit y of 00:00:00 00:00:00 [facility] Smoking Status Start Date Stop Date Source Former smoker 2018-04-27 00:00:00 2018-04-27 00:00:00 Universi ty of [facility] Medications Ordered Filled Start Stop Current Ordering Indication Dosage Frequency Signature Comments Components Source Medication Medication Date Date Medication? Clinician (SIG) Name Name levETIRAcet Yes [id number] 750mg Take 1 Univers am 750 mg 3-24 tablet by ity o f tablet 00:00: mouth 2 [place] (two) Medical times Branch daily. levETIRAcet Yes [id number] 750mg Take 1 Univers am 750 mg 3-24 tablet by ity o f tablet 00:00: mouth 2 [place] (two) Medical times Branch daily. metoclopram 2021- No 10mg 10 mg, Uni vers christian HCl 12-09 Slow IV ity of (REGLAN) 10:00: 08:53 Push, [place] injection 00 :00 ONCE, 1 Medical 10 mg dose, On Branch Joellen 12/09/21 at 0500, GIGI tiotropium Yes [id number] 1{puff} Inhale 1 Univers bromide 3-14 Puff ity of (SPIRIVA 00:00: daily. [place] RESPIMAT) 00 Medical 2.5 Branch mcg/actuati on Mist tiotropium Yes [id number] 1{puff} Inhale 1 Univers bromide 3-14 Puff ity of (SPIRIVA 00:00: daily. [place] RESPIMAT) 00 Medical 2.5 Branch mcg/actuati on Mist tiotropium Yes [id number] 1{puff} Inhale 1 Univers bromide 3-14 Puff ity of (SPIRIVA 00:00: daily. [place] RESPIMAT) 00 Medical 2.5 Branch mcg/actuati on Mist tiotropium Yes [id number] 1{puff} Inhale 1 Univers bromide 3-14 Puff ity of (SPIRIVA 00:00: daily. [place] RESPIMAT) 00 Medical 2.5 Branch mcg/actuati on Mist tiotropium Yes [id number] 1{puff} Inhale 1 Univers bromide 3-14 Puff ity of (SPIRIVA 00:00: daily. [place] RESPIMAT) 00 Medical 2.5 Branch mcg/actuati on Mist tiotropium Yes [id number] 1{puff} Inhale 1 Univers bromide 3-14 Puff ity of (SPIRIVA 00:00: daily. [place] RESPIMAT) 00 Medical 2.5 Branch mcg/actuati on Mist BENZONATATE 0 Yes [id number] TAKE 1 Univers 100 mg 3-04 CAPSULE BY ity of capsule 00:00: MOUTH [place] 00 THREE Medical TIMES Branch DAILY NEEDED FOR COUGH BENZONATATE 2021-0 Yes [id number] TAKE 1 Univers 100 mg 3-04 CAPSULE BY ity of capsule 00:00: MOUTH [place] 00 THREE Medical TIMES Branch DAILY NEEDED FOR COUGH BENZONATATE 2021-0 Yes [id number] TAKE 1 Univers 100 mg 3-04 CAPSULE BY ity of capsule 00:00: MOUTH [place] 00 THREE Medical TIMES Branch DAILY NEEDED FOR COUGH BENZONATATE 2021-0 Yes [id number] TAKE 1 Univers 100 mg 3-04 CAPSULE BY ity of capsule 00:00: MOUTH [place] 00 THREE Medical TIMES Branch DAILY NEEDED FOR COUGH BENZONATATE 2021-0 Yes [id number] TAKE 1 Univers 100 mg 3-04 CAPSULE BY ity of capsule 00:00: MOUTH [place] 00 THREE Medical TIMES Branch DAILY NEEDED FOR COUGH BENZONATATE 2021-0 Yes [id number] TAKE 1 Univers 100 mg 3-04 CAPSULE BY ity of capsule 00:00: MOUTH [place] 00 THREE Medical TIMES Branch DAILY NEEDED FOR COUGH ALPRAZolam Yes [id number] .25mg Take 0.25 Univers (XANAX) 2-11 mg by ity of 0.25 mg 11:24: mouth at [place] [address] bedtime as Medical needed. Branch pregabalin Yes 50mg Take 50 mg U nivers (LYRICA) 50 2-11 by mouth ity of mg capsule 11:24: at [place] [address] bedtime. Medical Branch esomeprazol Yes 20mg Take 20 mg Univers e (NEXIUM) 2-11 by mouth 2 ity of 20 mg 11:24: (two) [place] capsule 16 times Medical daily Branch before breakfast and dinner. ALPRAZolam Yes [id number] .25mg Take 0.25 Univers (XANAX) 2-11 mg by ity of 0.25 mg 11:24: mouth at [place] [address] bedtime as Medical needed. Branch pregabalin Yes 50mg Take 50 mg U nivers (LYRICA) 50 2-11 by mouth ity of mg capsule 11:24: at [place] 16 bedtime. Medical Branch esomeprazol 2021-0 Yes 20mg Take 20 mg Univers e (NEXIUM) 2-11 by mouth 2 ity of 20 mg 11:24: (two) [place] capsule 16 times Medical daily Branch before breakfast and dinner. ALPRAZolam 2021-0 Yes [id number] .25mg Take 0.25 Univers (XANAX) 2-11 mg by ity of 0.25 mg 11:24: mouth at [place] tablet 16 bedtime as Medical needed. Branch pregabalin 2021-0 Yes 50mg Take 50 mg U nivers (LYRICA) 50 2-11 by mouth ity of mg capsule 11:24: at [place] [address] bedtime. Medical Branch esomeprazol 2021-0 Yes 20mg Take 20 mg Univers e (NEXIUM) 2-11 by mouth 2 ity of 20 mg 11:24: (two) [place] capsule 16 times Medical daily Branch before breakfast and dinner. ALPRAZolam 2021-0 Yes [id number] .25mg Take 0.25 Univers (XANAX) 2-11 mg by ity of 0.25 mg 11:24: mouth at [place] tablet 16 bedtime as Medical needed. Branch pregabalin 2021-0 Yes 50mg Take 50 mg U nivers (LYRICA) 50 2-11 by mouth ity of mg capsule 11:24: at [place] [address] bedtime. Medical Branch esomeprazol 2021-0 Yes 20mg Take 20 mg Univers e (NEXIUM) 2-11 by mouth 2 ity of 20 mg 11:24: (two) [place] capsule 16 times Medical daily Branch before breakfast and dinner. ALPRAZolam 2021-0 Yes [id number] .25mg Take 0.25 Univers (XANAX) 2-11 mg by ity of 0.25 mg 11:24: mouth at [place] tablet 16 bedtime as Medical needed. Branch pregabalin 2021-0 Yes 50mg Take 50 mg U nivers (LYRICA) 50 2-11 by mouth ity of mg capsule 11:24: at [place] [address] bedtime. Medical Branch esomeprazol 2021-0 Yes 20mg Take 20 mg Univers e (NEXIUM) 2-11 by mouth 2 ity of 20 mg 11:24: (two) [place] capsule 16 times Medical daily Branch before breakfast and dinner. ALPRAZolam Yes [id number] .25mg Take 0.25 Univers (XANAX) 2-11 mg by ity of 0.25 mg 11:24: mouth at [place] tablet 16 bedtime as Medical needed. Branch pregabalin Yes 50mg Take 50 mg U nivers (LYRICA) 50 2-11 by mouth ity of mg capsule 11:24: at [place] 16 bedtime. Medical Branch esomeprazol Yes 20mg Take 20 mg Univers e (NEXIUM) 2-11 by mouth 2 ity of 20 mg 11:24: (two) [place] capsule 16 times Medical daily Branch before breakfast and dinner. azithromyci Yes [id number] 250mg Take 1 Univers n 250 mg 2-08 tablet by ity of tablet 00:00: mouth [place] 00 daily. Medical Branch azithromyci Yes [id number] 250mg Take 1 Univers n 250 mg 2-08 tablet by ity of tablet 00:00: mouth [place] 00 daily. Medical Branch azithromyci Yes [id number] 250mg Take 1 [facility] n 250 mg 2-08 tablet by ity of tablet 00:00: mouth [place] 00 daily. Medical Branch azithromyci Yes [id number] 250mg Take 1 [facility] n 250 mg 2-08 tablet by ity of tablet 00:00: mouth [place] 00 daily. Medical Branch azithromyci Yes [id number] 250mg Take 1 [facility] n 250 mg 2-08 tablet by ity of tablet 00:00: mouth [place] 00 daily. Medical Branch azithromyci Yes [id number] 250mg Take 1 [facility] n 250 mg 2-08 tablet by ity of tablet 00:00: mouth [place] 00 daily. Medical Branch chlorphenir 0 Yes [id number] 4mg Take 1 [facility] amine 4 mg 1-05 tablet by ity of tablet 00:00: mouth [place] 00 every 6 Medical (six) Branch hours as needed for Allergies or Runny nose. calcium/mag 0 Yes [id number] 1{each} Take 1 Univers nesium/zinc 1-05 Each by ity o f (CALCIUM-MA 00:00: mouth [place] GNESUIUM-ZI 00 daily. Medica l [place]) Branch 333-133-5 mg Tab benzonatate 2022-0 Yes [id number] 100mg Take 1 [facility] 100 mg 1-05 capsule by ity of capsule 00:00: mouth 3 [place] 00 (three) Medical times Branch daily as needed for Cough. chlorphenir 2022-0 Yes [id number] 4mg Take 1 [facility] amine 4 mg 1-05 tablet by ity of tablet 00:00: mouth [place] 00 every 6 Medical (six) Branch hours as needed for Allergies or Runny nose. calcium/mag 2022-0 Yes [id number] 1{each} Take 1 [facility] nesium/zinc 1-05 Each by ity o f (CALCIUM-MA 00:00: mouth [place] GNESUIUM-ZI 00 daily. Medica l [place]) Branch 333-133-5 mg Tab benzonatate 2-0 Yes [id number] 100mg Take 1 [facility] 100 mg 1-05 capsule by ity of capsule 00:00: mouth 3 (three) Medical times Branch daily as needed for Cough. chlorphenir 2022-0 Yes [id number] 4mg Take 1 [facility] amine 4 mg 1-05 tablet by ity of tablet 00:00: mouth [place] 00 every 6 Medical (six) Branch hours as needed for Allergies or Runny nose. calcium/mag 2022-0 Yes [id number] 1{each} Take 1 [facility] nesium/zinc 1-05 Each by ity o f (CALCIUM-MA 00:00: mouth [place] GNESUIUM-ZI 00 daily. Medica l [place]) Branch 333-133-5 mg Tab benzonatate 2-0 Yes [id number] 100mg Take 1 [facility] 100 mg 1-05 capsule by ity of capsule 00:00: mouth 3 00 (three) Medical times Branch daily as needed for Cough. chlorphenir 2022-0 Yes [id number] 4mg Take 1 [facility] amine 4 mg 1-05 tablet by ity of tablet 00:00: mouth [place] 00 every 6 Medical (six) Branch hours as needed for Allergies or Runny nose. calcium/mag 2022-0 Yes [id number] 1{each} Take 1 [facility] nesium/zinc 1-05 Each by ity o f (CALCIUM-MA 00:00: mouth [place] GNESUIUM-ZI 00 daily. Medica l [place]) Branch 333-133-5 mg Tab benzonatate 0 Yes [id number] 100mg Take 1 [facility] 100 mg 1-05 capsule by ity of capsule 00:00: mouth 3 (three) Medical times Branch daily as needed for Cough. chlorphenir 0 Yes [id number] 4mg Take 1 [facility] amine 4 mg 1-05 tablet by ity of tablet 00:00: mouth [place] 00 every 6 Medical (six) Branch hours as needed for Allergies or Runny nose. calcium/mag 0 Yes [id number] 1{each} Take 1 [facility] nesium/zinc 1-05 Each by ity o f (CALCIUM-MA 00:00: mouth [place] GNUIUM- 00 daily. Medica l [place]) Branch 333-133-5 mg Tab benzonatate 0 Yes [id number] 100mg Take 1 [facility] 100 mg 1-05 capsule by ity of capsule 00:00: mouth 3 (three) Medical times Branch daily as needed for Cough. chlorphenir 0 Yes [id number] 4mg Take 1 [facility] amine 4 mg 1-05 tablet by ity of tablet 00:00: mouth [place] 00 every 6 Medical (six) Branch hours as needed for Allergies or Runny nose. calcium/mag 0 Yes [id number] 1{each} Take 1 [facility] nesium/zinc 1-05 Each by ity o f (CALCIUM-MA 00:00: mouth [place] [facility] daily. [facility] [place]) Branch 333-133-5 mg Tab benzonatate Yes [id number] 100mg Take 1 [facility] 100 mg 1-05 capsule by ity of capsule 00:00: mouth 3 (three) Medical times Branch daily as needed [...] 00 daily. Medical Branch albuterol 2020-09 Yes [id number] 1.25mg Inhale 1.5 Univers 2.5 mg /3 1-11 mL every 4 ity of mL (0.083 00:00: (four) [place] %) 00 hours. Medical nebulizer Branch solution albuterol 2020-09 Yes [id number] 1.25mg Inhale 1.5 Univers 2.5 mg /3 1-11 mL every 4 ity of mL (0.083 00:00: (four) [place] %) 00 hours. Medical nebulizer Branch solution albuterol 2020-09 Yes [id number] 1.25mg Inhale 1.5 Univers 2.5 mg /3 1-11 mL every 4 ity of mL (0.083 00:00: (four) [place] %) 00 hours. Medical nebulizer Branch solution albuterol 2020-09 Yes [id number] 1.25mg Inhale 1.5 Univers 2.5 mg /3 1-11 mL every 4 ity of mL (0.083 00:00: (four) [place] %) 00 hours. Medical nebulizer Branch solution albuterol 2020-09 Yes [id number] 1.25mg Inhale 1.5 Univers 2.5 mg /3 1-11 mL every 4 ity of mL (0.083 00:00: (four) [place] %) 00 hours. Medical nebulizer Branch solution albuterol 2020-09 Yes [id number] 1.25mg Inhale 1.5 Univers 2.5 mg /3 1-11 mL every 4 ity of mL (0.083 00:00: (four) [place] %) 00 hours. Medical nebulizer Branch solution albuterol 2020-09 Yes [id number] 2{puff} Inhale 2 Univers 90 1-05 Puffs ity of mcg/actuati 00:00: every 6 [place] as on inhaler 00 (six) Medical hours as Branch needed for Wheezing or Shortness of Breath. albuterol 2020-09 Yes [id number] 2{puff} Inhale 2 Univers 90 1-05 Puffs ity of mcg/actuati 00:00: every 6 [place] as on inhaler 00 (six) Medical hours as Branch needed for Wheezing or Shortness of Breath. albuterol 2020-09 Yes [id number] 2{puff} Inhale 2 Univers 90 1-05 Puffs ity of mcg/actuati 00:00: every 6 [place] as on inhaler 00 (six) Medical hours as Branch needed for Wheezing or Shortness of Breath. albuterol 2020-09 Yes [id number] 2{puff} Inhale 2 Univers 90 1-05 Puffs ity of mcg/actuati 00:00: every 6 [place] as on inhaler 00 (six) Medical hours as Branch needed for Wheezing or Shortness of Breath. albuterol 2020-09 Yes [id number] 2{puff} Inhale 2 Univers 90 1-05 Puffs ity of mcg/actuati 00:00: every 6 [place] as on inhaler 00 (six) Medical hours as Branch needed for Wheezing or Shortness of Breath. albuterol 2020-09 Yes [id number] 2{puff} Inhale 2 Univers 90 1-05 Puffs [...] by ity of tablet 00:00: mouth 2 [place] (two) Medical times Branch daily with meals. carvediloL 2020-09 Yes 25mg Take 1 Unive rs 25 mg 0-27 tablet by ity of tablet 00:00: mouth 2 [place] (two) Medical times Branch daily with meals. ubrogepant 2020-09 Yes [id number] 100mg Take 100 Univers (UBRELVY) 0-19 mg by ity of 100 mg Tab 00:00: mouth as [place] as 00 needed Medical (migraine) Branch . Take at onset of migraine, repeat x1 in 2h if headache remains ubrogepant 2020-09 Yes [id number] 100mg Take 100 Univers (UBRELVY) 0-19 mg by ity of 100 mg Tab 00:00: mouth as [place] as 00 needed Medical (migraine) Branch . Take at onset of migraine, repeat x1 in 2h if headache remains ubrogepant 2020-09 Yes [id number] 100mg Take 100 Univers (UBRELVY) 0-19 mg by ity of 100 mg Tab 00:00: mouth as [place] as 00 needed Medical (migraine) Branch . Take at onset of migraine, repeat x1 in 2h if headache remains ubrogepant 2020-09 Yes [id number] 100mg Take 100 Univers (UBRELVY) 0-19 mg by ity of 100 mg Tab 00:00: mouth as [place] 00 needed Medical (migraine) Branch . Take at onset of migraine, repeat x1 in 2h if headache remains ubrogepant 2020-09 Yes [id number] 100mg Take 100 Univers (UBRELVY) 0-19 mg by ity of 100 mg Tab 00:00: mouth as [place] 00 needed Medical (migraine) Branch . Take at onset of migraine, repeat x1 in 2h if headache remains ubrogepant 2020-09 Yes [id number] 100mg Take 100 Univers (UBRELVY) 0-19 mg by ity of 100 mg Tab 00:00: mouth as [place] 00 needed Medical (migraine) Branch . Take at onset of migraine, repeat x1 in 2h if headache remains nitroglycer 2020-[id number] 1 Univers in 0.4 mg 0-10 tablet ity of sublingual 00:00: under the [place] tablet 00 tongue Medical every 5 Branch (five) minutes as needed for Chest pain. nitroglycer 2020-[id number] 1 Univers in 0.4 mg 0-10 tablet ity of sublingual 00:00: under the [place] tablet 00 tongue Medical every 5 Branch (five) minutes as needed for Chest pain. nitroglycer 2020-[id number] 1 Univers in 0.4 mg 0-10 tablet ity of sublingual 00:00: under the [place] tablet 00 tongue Medical every 5 Branch (five) minutes as needed for Chest pain. nitroglycer 2020-[id number] 1 Univers in 0.4 mg 0-10 tablet ity of sublingual 00:00: under the [place] tablet 00 tongue Medical every 5 Branch (five) minutes as needed for Chest pain. nitroglycer 2020-[id number] 1 Univers in 0.4 mg 0-10 tablet ity of sublingual 00:00: under the [place] tablet 00 tongue Medical every 5 Branch (five) minutes as needed for Chest pain. nitroglycer 2020-[id number] 1 Univers in 0.4 mg 0-10 tablet ity of sublingual 00:00: under the [place] tablet 00 tongue Medical every 5 Branch (five) minutes as needed for Chest pain. VRAYLAR 3 2020- Yes 1{capsu Take 1 Uni vers mg Cap 8-25 le} capsule by ity of 00:00: mouth at [place] [address] bedtime. Medical Branch VRAYLAR 3 2020-0 Yes 1{capsu Take 1 Uni vers mg Cap 8-25 le} capsule by ity of 00:00: mouth at [place] [address] bedtime. Medical Branch VRAYLAR 3 2020-0 Yes 1{capsu Take 1 Uni vers mg Cap 8-25 le} capsule by ity of 00:00: mouth at [place] [address] bedtime. Medical Branch VRAYLAR 3 2020- Yes 1{capsu Take 1 Uni vers mg Cap 8-25 le} capsule by ity of 00:00: mouth at [place] [address] bedtime. Medical Branch VRAYLAR 3 2020-0 Yes 1{capsu Take 1 Uni vers mg Cap 8-25 le} capsule by ity of 00:00: mouth at [place] [address] bedtime. Medical Branch VRAYLAR 3 2020- Yes 1{capsu Take 1 Uni vers mg Cap 8-25 le} capsule by ity of 00:00: mouth at [place] [address] bedtime. Medical Branch albuterol Yes [id number] 2.5mg Inhale 3 Univers 2.5 mg /3 8-05 mL every 6 ity of mL (0.083 00:00: (six) [place] %) 00 hours as Medical nebulizer needed for Bran ch solution Wheezing or Shortness of Breath. albuterol Yes [id number] 2.5mg Inhale 3 Univers 2.5 mg /3 8-05 mL every 6 ity of mL (0.083 00:00: (six) [place] %) 00 hours as Medical nebulizer needed for Bran ch solution Wheezing or Shortness of Breath. albuterol Yes [id number] 2.5mg Inhale 3 Univers 2.5 mg /3 8-05 mL every 6 ity of mL (0.083 00:00: (six) [place] %) 00 hours as Medical nebulizer needed for Bran ch solution Wheezing or Shortness of Breath. albuterol Yes [id number] 2.5mg Inhale 3 Univers 2.5 mg /3 8-05 mL every 6 ity of mL (0.083 00:00: (six) [place] %) 00 hours as Medical nebulizer needed for Bran ch solution Wheezing or Shortness of Breath. albuterol Yes [id number] 2.5mg Inhale 3 Univers 2.5 mg /3 8-05 mL every 6 ity of mL (0.083 00:00: (six) [place] %) 00 hours as Medical nebulizer needed for Bran ch solution Wheezing or Shortness of Breath. albuterol Yes [id number] 2.5mg Inhale 3 Univers 2.5 mg /3 [...] mcg/actuati route on nasal daily. spray fexofenadin 1-0 2020- No 180mg QD Take 1 [facility] (SUDHAKAR) 6-25 07-[address] 180 MG 00:00: 04:59 (180 [facility] tablet 00 :00 total) by l mouth daily for 30 days. fluticasone 2021-0 202- No QD Inhale 1 M ethodi furoate-natan [...] 22:52: [facility]ly. [facility] l levETIRAcet 2021-0 Yes 1000mg Q.5D Take 1,000 Methodi am [...] day. l ophthalmic emulsion albuterol Yes 1{ampul Q.[id number] Take 1 Methodi (ACCUNEB) 6-24 e} [id number] ampule by st 1.25 mg/3 22:52: 3D nebulizati [facility] mL 44 on 3 l nebulizer (three) solution times a day. esomeprazol 2020- No 20mg QD Take 20 mg Methodi e (NexIUM) 6-18 03- by mouth st 20 MG 20:19: 00:00 [...] 03-[address] (Medrol, 00:00: 04:59 directions Ch[place] Gandara,) 4 mg 00 :00 l tablet promethazin 2020- No 12.5mg Q6H Take 1 M ethodi e 03-18- tablet st (PHENERGAN) 00:00: 04:59 (12.5 mg H [facility] 12.5 MG 00 :00 total) by l tablet mouth every 6 (six) hours as needed for nausea or vomiting for up to 3 days. fluticasone Yes [id number] 1{puff} Inhale 1 Univers furoate-natan 6-02 Puff ity of anteroL 00:00: daily. [place] (BREO 00 Medical ELLIPTA) Branch 200-25 mcg/dose DsDv fluticasone Yes [id number] 1{puff} Inhale 1 Univers furoate-natan 6-02 Puff ity of anteroL 00:00: daily. [address]) Branch 200-25 mcg/dose DsDv fluticasone Yes [id number] 1{puff} Inhale 1 Univers furoate-natan 6-02 Puff ity of anteroL 00:00: daily. [address]) Branch 200-25 mcg/dose DsDv fluticasone Yes [id number] 1{puff} Inhale 1 [facility] furoate-natan 6-02 Puff ity of anteroL 00:00: daily. [address]) Branch 200-25 mcg/dose DsDv fluticasone Yes [id number] 1{puff} Inhale 1 Univers furoate-natan 6-02 Puff ity of anteroL 00:00: daily. [address]) Branch 200-25 mcg/dose DsDv fluticasone Yes [id number] 1{puff} Inhale 1 Univers furoate-natan 6-02 Puff ity of anteroL 00:00: daily. [address]) Branch 200-25 mcg/dose DsDv ALPRAZolam Yes [...] MG 14:04: mouth Medical tablet 46 daily. [place] venlafaxine Yes 150mg QD Take [address] (EFFEXOR-XR 5-21 mg by [facility] ) 150 MG 24 14:04: mouth Medic al hr capsule 46 daily. [place] apixaban Yes 5mg QD Take 5 mg [...] 10 mg 14:04: daily. Medical tablet 46 [place] pregabalin Yes 50mg QD Take [address] (LYRICA) 25 5-21 by mouth Luke s - MG capsule 14:04: nightly . Md dical 46 [place] esomeprazol Yes 40mg QD Take 40 mg [...] mouth [facility] - MG tablet 14:04: nightly. [facility] blane 46 [place] carvediloL Yes 25mg Take [address] (COREG) 25 5-21 by mouth 2 Berta es - MG tablet 14:04: (two) Medical 46 times Center daily with breakfast and dinner. cariprazine Yes 1.5mg QD Take 1.[address] (Vraylar) 5-21 mg by [facility] - 1.5 mg Cap 14:04: mouth Medica l 46 nightly. [place] albuterol 2020- No 1{ampul Q.5D Take [address] (ACCUNEB) 5-21 05-21 e} ampule by Luke s - 1.25 mg/3 11:39: 00:00 nebulizati M edical mL 17 :00 on 2 (two) Center nebulizer times solution daily . fluticasone 2020- No 1{puff} QD Inhale [address] [facility] -vilanterol 5-21 05-21 puff by Alberto s - (BREO 11:39: 00:00 mouth via Medica l ELLIPTA) 17 :00 inhaler Center 100-25 daily. mcg/dose DsDv tiotropium 2020- No 18ug QD Inhale [address] (SPIRIVA) 5-21 05-21 mcg by Jeanie[place] - 18 mcg 11:39: 00:00 mouth via Medic al inhalation 17 :00 inhaler Center capsule daily. triamcinolo 2020- No 2{spray QD [address] [facility] ne 5-19 05-19 } by Nasal [place] - (NASACORT) 22:23: 00:00 route Medic al 55 mcg 54 :00 daily. Center nasal inhaler topiramate 2020- No 200mg Q.5D Take [address] (TOPAMAX) 5-19 05-19 mg by Coni - 100 MG 22:23: 00:00 mouth 2 Medical tablet 21 :00 (two) Center times daily. ROFLUMILAST 2020- No COPD 500ug QD Take [address] [facility] [address] ORAL 5-19 05-19 Associated mcg by [facility] - 22:22: 00:00 with mouth Medical 54 :00 Chronic daily. Center Bronchitis ranolazine 2020- No 500mg Q.5D Take [address] (RANEXA) 5-19 05-19 mg by Coni - 500 MG 12 22:22: 00:00 mouth 2 Medi blane hr tablet 12 :00 (two) Center times daily. levothyroxi 2020- No 125ug Take [address] ne 5-19 05-19 mcg by Coni - (SYNTHROID, 22:20: 00:00 mouth Medi blane LEVOTHROID) 38 :00 Every Center 125 MCG morning on tablet an empty stomach. benztropine 2020- No 2mg Take [address] [facility] (COGENTIN) 5-19 05-19 by mouth 3 Jeanie kes - 2 MG tablet 22:18: 00:00 (three) Me dical 40 :00 times Center daily as needed. benztropine No 1mg Take [address] [facility] (COGENTIN) 02-10- by mouth Luke s - 1 MG tablet 22:18: 00:00 daily as edical 31 :00 needed. [place] ARIPiprazol 2020- No 5mg QD Take [address] [facility] e (ABILIFY) 02-10- by mouth Berta es - 5 MG tablet 22:18: 00:00 nightly. M edical 03 :00 [place] ARIPiprazol 2020- No 10mg QD Take [address] [facility] e (ABILIFY) 02-10- by mouth Berta es - 10 MG 22:17: 00:00 daily. Medical disintegrat 48 :00 Center ing tablet levETIRAcet Yes [id number] 1000mg Take 2 Univers am 500 mg 7-29 tablets by ity of tablet 00:00: mouth 2 [place] 00 (two) Medical times Branch daily. levETIRAcet Yes [id number] 1000mg Take 2 Univers am 500 mg 7-29 tablets by ity of tablet 00:00: mouth 2 [place] 00 (two) Medical times Branch daily. levETIRAcet Yes [id number] 1000mg Take 2 Univers am 500 mg 7-29 tablets by ity of tablet 00:00: mouth 2 [place] 00 (two) Medical times Branch daily. levETIRAcet Yes [id number] 1000mg Take 2 Univers am 500 mg 7-29 tablets by ity of tablet 00:00: mouth 2 [place] 00 (two) Medical times Branch daily. levETIRAcet 2021- No [id number] 1000mg Take 2 Univers am 500 mg 7-29 03-24 tablets by ity of tablet 00:00: 00:00 mouth 2 [place] 00 :00 (two) Medical times Branch daily. blood sugar 2017-09 Yes [id number] Use as Univers diagnostic 0-24 directed. ity of (TRUETEST 00:00: [place].03. [place] TEST 00 Check once Medical STRIPS) daily Branch strip lancets 2017-09 Yes [id number] Use as Uni vers (TRUEPLUS 0-24 directed. ity o f LANCETS) 33 00:00: R 73.03, [place] gauge Misc 00 Check once Med ical daily Branch blood sugar 2017-09 Yes [id number] Use as Univers diagnostic 0-24 directed. ity of (TRUETEST 00:00: [place].03. [place] TEST 00 Check once Medical STRIPS) daily Branch strip lancets 2017-09 Yes [id number] Use as Uni vers (TRUEPLUS 0-24 directed. ity o f LANCETS) 33 00:00: R 73.03, [place] gauge Misc 00 Check once Med ical daily Branch blood sugar 2017-09 Yes [id number] Use as Univers diagnostic 0-24 directed. ity of (TRUETEST 00:00: [place].03. [place] TEST 00 Check once Medical STRIPS) daily Branch strip lancets 2017-09 Yes [id number] Use as Uni vers (TRUEPLUS 0-24 directed. ity o f LANCETS) 33 00:00: R 73.03, [place] gauge Misc 00 Check once Med ical daily Branch blood sugar 2017-09 Yes [id number] Use as Univers diagnostic 0-24 directed. ity of (TRUETEST 00:00: [place].03. [place] TEST 00 Check once Medical STRIPS) daily Branch strip lancets 2017-09 Yes [id number] Use as Uni vers (TRUEPLUS 0-24 directed. ity o f LANCETS) 33 00:00: R 73.03, [place] gauge Misc 00 Check once Med ical daily Branch blood sugar 2017-09 Yes [id number] Use as Univers diagnostic 0-24 directed. ity of (TRUETEST 00:00: R [place].03. [place] TEST 00 Check once Medical STRIPS) daily Branch strip lancets 2017-09 Yes [id number] Use as Uni vers (TRUEPLUS 0-24 directed. ity o f LANCETS) 33 00:00: R 73.03, [place] gauge Misc 00 Check once Med ical daily Branch blood sugar 2017-09 Yes [id number] Use as Univers diagnostic 0-24 directed. ity of (TRUETEST 00:00: R [place].03. [place] TEST 00 Check once Medical STRIPS) daily Branch strip lancets 2017-09 Yes [id number] Use as Uni vers (TRUEPLUS 0-24 directed. ity o f LANCETS) 33 00:00: R 73.03, [place] gauge Misc 00 Check once Med ical [facility] Branch busPIRone Yes TK 1 T PO Uni vers 15 mg -22 BID ity of tablet 00:00: [facility] venlafaxine Yes 150mg 150 mg at Univers XR 150 mg 06-16 bedtime. ity of 24 hr 00:00: capsule [facility] busPIRone Yes TK 1 T PO Uni vers 15 mg -22 BID ity of tablet 00:00: [facility] venlafaxine Yes 150mg 150 mg at Univers XR 150 mg 06-16 bedtime. ity of 24 hr 00:00: capsule [facility] busPIRone Yes TK 1 T PO Uni vers 15 mg - BID ity of tablet 00:00: [facility] venlafaxine Yes 150mg 150 mg at Univers XR 150 mg 06-16 bedtime. ity of 24 hr 00:00: capsule [facility] busPIRone Yes TK 1 T PO Uni vers 15 mg - BID ity of tablet 00:00: [facility] venlafaxine Yes 150mg 150 mg at Univers XR 150 mg 06-16 bedtime. ity of 24 hr 00:00: capsule [facility] busPIRone Yes TK 1 T PO Uni vers 15 mg -22 BID ity of tablet 00:00: [facility] venlafaxine Yes 150mg 150 mg at Univers XR 150 mg 06-16 bedtime. ity of 24 hr 00:00: capsule [facility] busPIRone Yes TK 1 T PO Uni vers 15 mg -22 BID ity of tablet 00:00: [facility] venlafaxine Yes 150mg 150 mg at Univers XR 150 mg 06-16 bedtime. ity of 24 hr 00:00: [place] capsule [facility] loratadine Yes as needed. U nivers (CLARITIN) 9-11 ity of 10 mg 00:00: [place] tablet 00 [facility] loratadine Yes as needed. U nivers (CLARITIN) [...] Immunizations Ordered Filled Immunization Date Status Comments [facility] e Immunization Name Name SARS-COV-2 COVID-19 2021-02-08 Completed Unive rsity of MODERNA VACCINE 00:00:[facility] SARS-COV-2 COVID-19 2021-02-08 Completed Unive rsity of MODERNA VACCINE 00:00:00 [facility] SARS-COV-2 COVID-19 2021-02-08 Completed Unive rsity of MODERNA VACCINE 00:00:00 [facility] SARS-COV-2 COVID-19 2021-02-08 Completed Unive rsity of MODERNA VACCINE 00:00:00 [facility] SARS-COV-2 COVID-19 2021-02-08 Completed Unive rsity of MODERNA VACCINE 00:00:00 [facility] SARS-COV-2 COVID-19 2021-02-08 Completed Unive rsity of MODERNA VACCINE 00:00:00 [facility] ical Branch SARS-COV-2 COVID-19 2021-01-11 Completed Unive rsity of MODERNA VACCINE 00:00:00 [facility] SARS-COV-2 COVID-19 2021-01-11 Completed Unive rsity of MODERNA VACCINE 00:00:00 [facility] SARS-COV-2 COVID-19 2021-01-11 Completed Unive rsity of MODERNA VACCINE 00:00:00 [facility] SARS-COV-2 COVID-19 2021-01-11 Completed Unive rsity of MODERNA VACCINE 00:00:00 [place] Med ical Branch SARS-COV-2 COVID-19 2021-01-11 Completed Unive rsity of MODERNA VACCINE 00:00:00 [facility] SARS-COV-2 COVID-19 2021-01-11 Completed Unive rsity of MODERNA VACCINE 00:00:00 [facility] Influenza Virus 2020-08-13 Completed Universit y of Vaccine 00:00:00 [facility] Influenza Virus 2020-08-13 Completed Universit y of Vaccine 00:00:00 [facility] Influenza Virus 2020-08-13 Completed Universit y of Vaccine 00:00:00 [facility] Influenza Virus 2020-08-13 Completed Universit y of Vaccine 00:00:00 [facility] Influenza Virus 2020-08-13 Completed Universit y of Vaccine 00:00:00 [facility] Influenza Virus 2020-08-13 Completed Universit y of Vaccine 00:00:00 [facility] Pneumococcal 2017-06-23 Completed University o f Polysaccharide, 00:00:00 [facility] ical PPSV23 (PNEUMOVAX) Branch Pneumococcal 2017-06-23 Completed University o f Polysaccharide, 00:00:00 [facility] ical PPSV23 (PNEUMOVAX) Branch Pneumococcal 2017-06-23 Completed University o f Polysaccharide, 00:00:00 [facility] ical PPSV23 (PNEUMOVAX) Branch Pneumococcal 2017-06-23 Completed University o f Polysaccharide, 00:00:00 [facility] ical PPSV23 (PNEUMOVAX) Branch Pneumococcal 2017-06-23 Completed University o f Polysaccharide, 00:00:00 [facility] ical PPSV23 (PNEUMOVAX) Branch Pneumococcal 2017-06-23 Completed University o f Polysaccharide, 00:00:00 [facility] ical PPSV23 (PNEUMOVAX) Branch Influenza High Dose 2015-11-16 Completed Unive rsity of 00:00:00 [facility] Pneumococcal 2015-11-16 Completed University o f Polysaccharide, 00:00:00 [facility] ical PPSV23 (PNEUMOVAX) Branch Influenza High Dose 2015-11-16 Completed Unive rsity of 00:00:00 [facility] Pneumococcal 2015-11-16 Completed University o f Polysaccharide, 00:00:00 [facility] ical PPSV23 (PNEUMOVAX) Branch Influenza High Dose 2015-11-16 Completed Unive rsity of 00:00:00 [facility] Pneumococcal 2015-11-16 Completed University o f Polysaccharide, 00:00:00 [place] Med ical PPSV23 (PNEUMOVAX) Branch Influenza High Dose 2015-11-16 Completed Unive rsity of 00:00:00 [facility] Pneumococcal 2015-11-16 Completed University o f Polysaccharide, 00:00:00 [place] Med ical PPSV23 (PNEUMOVAX) Branch Influenza High Dose 2015-11-16 Completed Unive rsity of 00:00:00 [facility] Pneumococcal 2015-11-16 Completed University o f Polysaccharide, 00:00:00 [place] Med ical PPSV23 (PNEUMOVAX) Branch Influenza High Dose 2015-11-16 Completed Unive rsity of 00:00:00 [facility] Pneumococcal 2015-11-16 Completed University o f Polysaccharide, 00:00:00 [place] Med ical PPSV23 (PNEUMOVAX) Branch Vital Signs Vital Name Observation Time Observation Value Comments Source HEIGHT 2021-02-10 21:00:00 149.9 cm WEIGHT 2021-02-10 21:00:00 59.467 kg Systolic blood 2022-01-01 02:01:00 121 mm[Hg] [facility] Diastolic blood 2022-01-01 02:01:00 98 mm[Hg] [facility] Heart rate 2022-01-01 02:01:00 82 /min [facility] Respiratory rate 2022-01-01 02:01:00 23 /min [facility] Oxygen saturation in 2022-01-01 02:01:00 98 /min [facility] Arterial blood by [facility] Pulse oximetry [place] Body temperature 2021-12-31 21:09:00 37.39 Ayaka [facility] Body weight 2021-12-31 21:05:00 56.7 kg [facility] BMI 2021-12-31 21:05:00 25.25 kg/m2 [facility] Systolic blood 2021-12-09 09:31:00 101 mm[Hg] [facility] Diastolic blood 2021-12-09 09:31:00 83 mm[Hg] [facility] Heart rate 2021-12-09 09:31:00 95 /min [facility] Respiratory rate 2021-12-09 09:31:00 13 /min [facility] Oxygen saturation in 2021-12-09 09:31:00 97 /min [facility] Arterial blood by [facility] Pulse oximetry [place] Body temperature 2021-12-09 06:48:00 36.83 Ayaka [facility] Body height 2021-12-09 06:48:00 149.9 cm [facility] Body weight 2021-12-09 06:48:00 61.236 kg [facility] BMI 2021-12-09 06:48:00 27.27 kg/m2 [facility] HEIGHT 2021-02-10 21:00:00 149.9 cm WEIGHT 2021-02-10 21:00:00 59.467 kg Oxygen saturation in 2021-03-18 20:00:00 97 /min [facility] Arterial blood by Pulse oximetry Systolic blood 2021-03-18 17:24:48 132 mm[Hg] [facility] pressure Diastolic blood 2021-03-18 17:24:48 72 mm[Hg] [facility] pressure Heart rate 2021-03-18 17:24:48 96 /min [facility] Body temperature 2021-03-18 17:24:48 37 Ayaka [facility] Respiratory rate 2021-03-18 17:24:48 14 /min [facility] Body height 2021-03-18 01:37:00 149.9 cm [facility] Body weight 2021-03-18 00:09:00 58.968 kg [facility] BMI 2021-03-18 00:09:00 26.26 kg/m2 [facility] Systolic blood 2021-02-12 12:00:00 101 mm[Hg] [facility] Diastolic blood 2021-02-12 12:00:00 72 mm[Hg] [facility] Heart rate 2021-02-12 12:00:00 93 /min [facility] Respiratory rate 2021-02-12 12:00:00 18 /min [facility] O[facility] in 2021-02-12 12:00:00 96 /min [facility] Arterial blood by [facility] Pulse oximetry Body temperature 2021-02-12 11:00:[address] [facility] Body height 2021-02-11 10:15:00 149.9 cm [facility] Body weight 2021-02-11 10:15:00 59.5 kg [facility] BMI 2021-02-11 10:15:00 26.48 kg/m2 [facility] Procedures Procedure Date / Time Performing Clinician Source Performed TROPONIN I 2022-01-01 00:34:00 Selvin Moore [facility] XR CHEST 1 VW 2021-12-31 22:23:00 Radha [facility] TROPONIN I 2021-12-31 22:12:00 Radha Sel[facility] COMP. METABOLIC PANEL 2021-12-31 22:12:00 Selvin Moore [facility] ([id number]) [facility] CBC WITH DIFF 2021-12-31 22:12:00 Selvin Moore [facility] N-TERMINAL PRO-BNP 2021-12-31 22:12:00 Selvin Moore [facility] XR CHEST 1 VW 2021-12-09 07:26:00 Radha Abrams [facility] TROPONIN I 2021-12-09 07:26:00 Radha Abrams [facility] COMP. METABOLIC PANEL 2021-12-09 07:26:00 Radha Abrams [facility] ([id number]) [facility] DIGOXIN 2021-12-09 07:26:00 Radha Abrams [facility] CBC WITH DIFF 2021-12-09 07:26:00 Radha Abrams [facility] N-TERMINAL PRO-BNP 2021-12-09 07:26:00 Radha Abrams [facility] COVID-19 (ID NOW RAPID 2021-12-09 07:26:00 Radha Abrams [facility]Y 2021-12-09 06:42:04 Doctor Unassigned, [facility] PRACTICES [facility] CONSENT/REFUSAL FOR 2021-12-09 06:41:48 Doctor Unassigned, [facility] DIAGNOSIS AND TREATMENT [facility] MEDICATION CORRESPONDENCE 2021-12-07 05:01:00 Doctor Unassigned, [facility] POC GLUCOSE 2021-03-18 17:31:00 Cliff Berkowitz spital ECG 12-LEAD 2021-03-18 17:28:01 Laeeq, [facility] TROPONIN 2021-03-18 16:41:00 Laeeq, [facility] TTE COMPLETE, WO 2021-03-18 14:19:12 Lae, [facility] CONTRAST, W DOPPLER ([id number]) POC GLUCOSE 2021-03-18 13:14:00 [facility], [facility] HC COMPLETE BLD COUNT 2021-03-18 10:00:00 Lae, [facility] W/AUTO DIFF COMPREHENSIVE METABOLIC 2021-03-18 10:00:00 [facility] PANEL MAGNESIUM LEVEL 2021-03-18 10:00:00 [facility], [facility] PHOSPHORUS LEVEL 2021-03-18 10:00:00 [facility] LIPID PANEL 2021-03-18 10:00:00 [facility] HEMOGLOBIN A1C 2021-03-18 10:00:00 [facility], [facility] ESTIMATED GFR 2021-03-18 10:00:00 [facility], [facility] URINE CULTURE 2021-03-18 06:12:00 [facility], [facility] LEGIONELLA URINARY 2021-03-18 05:36:00 [facility], [facility] ANTIGEN STREPTOCOCCUS PNEUMONIAE 2021-03-18 05:36:00 [facility], [facility] URINARY ANTIGEN URINALYSIS SCREEN AND 2021-03-18 05:36:00 [facility], [facility] MICROSCOPY, WITH REFLEX TO CULTURE BLOOD CULTURE, AEROBIC & 2021-03-18 04:35:00 Lae, [facility] ANAEROBIC BLOOD CULTURE, AEROBIC & 2021-03-18 04:25:00 [facility], [facility] ANAEROBIC DIGOXIN LEVEL 2021-03-18 04:24:00 [facility] TROPONIN 2021-03-18 04:24:00 [facility] LACTIC ACID LEVEL, SEPSIS 2021-03-18 04:24:00 Lae, [facility] - NOW AND REPEAT 2X EVERY 3 HOURS POC GLUCOSE 2021-03-18 01:38:00 [facility] ARTERIAL BLOOD GAS 2021-03-18 01:10:00 [facility], [facility] DUPLEX VENOUS LOWER 2021-03-18 01:00:06 [facility], [facility] EXTREMITY BILATERAL LACTIC ACID LEVEL, SEPSIS 2021-03-17 23:47:00 Lae, [facility] - NOW AND REPEAT 2X EVERY 3 HOURS TROPONIN 2021-03-17 23:47:00 [facility], [facility] XR CHEST 1 VW PORTABLE 2021-03-17 21:20:18 [facility] Hector [facility] HC COMPLETE BLD COUNT 2021-03-17 21:05:00 [facility] W/AUTO DIFF LACTIC ACID LEVEL, SEPSIS 2021-03-17 21:05:00 [facility], [facility] - NOW AND REPEAT 2X EVERY 3 HOURS COMPREHENSIVE METABOLIC 2021-03-17 21:05:00 [facility] PANEL TROPONIN 2021-03-17 21:05:00 [facility] B NATRIURETIC PEPTIDE 2021-03-17 21:05:00 [facility] D-DIMER 2021-03-17 21:05:00 [facility] ESTIMATED GFR 2021-03-17 21:05:00 [facility] ECG ED PRELIMINARY 2021-03-17 20:36:46 [facility] INTERPRETATION ECG 12-LEAD 2021-03-17 20:19:38 [facility] BASIC METABOLIC PANEL (7) 2021-02-12 05:34:00 Johan [facility] MAGNESIUM 2021-02-12 05:34:00 [facility] 2021-02-12 05:34:00 [facility] CBC W/PLT COUNT & AUTO 2021-02-12 04:48:00 Johan Alison [facility] MR BRAIN WITHOUT IV 2021-02-11 16:08:00 Chew, [facility] MRA HEAD WITHOUT IV 2021-02-11 16:07:00 Chew, [facility] MRA NECK WITHOUT IV 2021-02-11 16:07:00 Chew [facility] RAPID DRUG SCREEN, URINE 2021-02-11 03:05:00 [facility] URINALYSIS WITH 2021-02-11 03:05:00 [facility] MICROSCOPIC IF INDICATED [facility] URINALYSIS MICROSCOPIC 2021-02-11 03:05:00 Johan Alison [facility] HOMOCYSTEINE 2021-02-11 02:46:00 [facility] RPR 2021-02-11 02:46:00 [facility] TSH/FREE T4 IF INDICATED 2021-02-11 02:46:00 [facility] VITAMIN B12 AND FOLATE 2021-02-11 02:46:00 [facility] CBC W/PLT COUNT & AUTO 2021-02-11 02:46:00 [facility] BASIC METABOLIC PANEL (7) 2021-02-11 02:46:00 [facility] MAGNESIUM 2021-02-11 02:46:00 [facility]OS[facility]US 2021-02-11 02:46:00 Johan [facility] C-REACTIVE PROTEIN 2021-02-11 02:46:00 Johan [facility] DIGOXIN LEVEL 2021-02-11 02:46:00 Johan [facility] XR CHEST 1 VIEW PORTABLE 2021-02-10 22:20:00 Johan [facility] / BEDSIDE [facility] POCT-GLUCOSE METER 2021-02-10 21:28:00 Wilmer Vera [facility] LIPID PANEL 2021-02-10 21:22:00 Edmond [facility] CREATINE KINASE (CK) 2021-02-10 21:21:00 Edmond [facility] HEMOGLOBIN A1C 2021-02-10 21:21:00 Johan [facility] CBC W/PLT COUNT & AUTO 2021-02-10 21:21:00 Alison Prado [facility] COMPREHENSIVE METABOLIC 2021-02-10 21:21:00 Alison Prado [facility] PROTHROMBIN TIME/INR 2021-02-10 21:21:00 Edmond [facility] APTT 2021-02-10 21:21:00 Edmond [facility] MAGNESIUM 2021-02-10 21:21:00 Johan [facility] PHOSPHORUS 2021-02-10 21:21:00 Johan [facility] HIGH SENSITIVITY TROPONIN 2021-02-10 21:21:00 Edmond [facility] B-TYPE NATRIURETIC FACTOR 2021-02-10 21:21:00 Edmond [facility] (BNP) [facility] LACTIC ACID, VENOUS 2021-02-10 21:21:00 Edmond Alison [facility] ARRYTHMIA IMPLANT REPORT 2021-02-10 00:00:00 Provider, Mino [facility] - - SCAN Scanning [facility] Plan of Care Planned Activity Planned Date Details Comments Source Future Scheduled 2021-05-[address] [facility] - Test 00:00:00 (#1) [code = [facility] INFLUENZA VACCINE (#1)] Future Scheduled 2020-09-[address] [facility] - Test 00:00:00 (12+) [code = [facility] DEPRESSION SCREENING (12+)] Future Scheduled [address] [facility] - Test 00:00:00 malignant neoplasm Medical C enter of cervix (procedure) [code = 572156568] Future Scheduled 2000 DTAP/TDAP/TD [facility] Test 00:[facility]:00 VACCINES (1 - Tdap) [facility] [code = DTAP/TDAP/TD VACCINES (1 - Tdap)] Future Scheduled [address] [facility] - Test 00:00:00 SCREENING [code = Medical nter HEPATITIS C SCREENING] Future Scheduled Screening for [facility] Test malignant neoplasm of cervix (procedure) [code = 268599817] Future Scheduled [facility]ACCINE [facility] [code = INFLUENZA VACCINE] Encounters Start End Encounter Admission Attending Care Care Encounter Source Date/Time Date/Time Type Type Clinicians Facility Department ID 2021-02-10 Inpatient ER BERSHAD, [facility] Neurology [id number] [facility] 20:21:00 WILMER 2020-09-29 Inpatient Mely, [facility] ENDO [id number] [facility] 10:15:[id number] [facility] 2020-09-28 Inpatient EL Mely, [facility] ENDO [id number] [facility] 12:00:[id number] [facility] 2022-07-20 2022-07-20 Outpatient R TIMO SYKES [facility] [id number] Univers 09:20:00 09:20:00 TIMO SYKES [id number] ity of [facility] 2022-01-21 2022-01-21 Outpatient R JONNY [facility] [id number] Univers 08:00:00 08:00:00 CHON [id number] ity o f [facility] 2021-12-31 2021-12-31 Emergency X RADHA [facility] ERT [id number] Univers 16:32:00 21:48:00 SELVIN ity [facility] 2021-12-31 2021-12-31 Emergency Radha [facility] [id number] Univers 16:32:00 21:48:00 Selvin ONTIVEROS [id number] i ty of [place] 4.2.7.2.686 [facility] [id number] [facility] 084 [place] 2021-12-16 2021-12-16 [facility] [id number] Univers 00:00:00 00:00:00 Carlos Albertodavidkenzie FRIENDSWO [id number] [place] [id number] Md dical AND ADULT [facility]92 [place] [facility] 2021-12-09 2021-12-09 Emergency [facility] [id number] Univers 01:58:00 04:56:00 RADHA whitaker [facility] 2021-12-09 2021-12-09 Emergency [facility] [id number] Univers 01:58:00 04:56:00 Radha ONTIVEROS [id number] ity of [place] 4.2.7.2.686 [facility] [id number] [address] 2021-12-09 2021-12-09 Orders Doctor NUNO 1.2.840.114 [id number] Univers 00:00:00 00:00:00 Only Unassigned, PINKY 350.1.13.10 ity of [facility] 4.2.7.2.686 Basilio as [id number] [address] 2021-12-07 2021-12-07 Telephone [facility] [id number] Univers 00:00:00 00:00:00 Tucker ONTIVEROS [id number] i ty of [place] [id number] Md dical [facility] [address] [facility] 2021-12-07 2021-12-07 Orders Doctor NUNO 1.2.840.114 [id number] Univers 00:00:00 00:00:00 Only Unassigned, PINKY 350.1.13.10 ity of [facility] 4.2.7.2.686 Basilio as [phone] [place] [address] [address] 2021-05-12 2021-05-12 Orders Doctor NURYS 1.2.840.114 [id number] 00:00:00 00:00:00 Only Unassigned, PINKY 350.1.13.10 [place] [facility] 4.2.7.2.686 [id number] 2021-04-29 2021-04-29 Office Malena [facility] 1.2.840.114 [id number] 12:33:16 13:56:43 Visit Tucker Ontiveros 350.1.13.10 [place] 4.2.7.2.686 Margo [id number] [facility] 2021-04-28 2021-04-28 Orders Malena [facility] [id number] 00:00:00 00:00:00 [facility] 350.1.13.10 CLINICS 4.2.7.2.686 [id number] 2021-03-19 2021-03-19 Patient Omari, 1.2.840.1 [id number] Methodi 00:00:00 00:00:00 Outreach Ann [address]11.1.[address] 3.430.2.7 Hospit a .3.789860 l .8 2021-03-17 2021-03-18 Emergency Hector Alvarez 1.2.840.1 [id number] Methodi 14:59:00 17:52:00 CiciVeda Andrea [address]602.1.[address] Cliff Berkowitz 3.430.2.7 Hospita .3.847746 l .8 2021-03-17 2021-03-17 Travel 1.2.840.1 [id number] Methodi 00:00:00 00:00:[address] 3.430.2.7 0.2.7.3.698 Ho spita .3.364193 084.8 l .8 2017-09-06 2017-09-08 Inpatient Jt SUE [facility] [id number] 10:12:00 02:32:00 [facility] Results Test Description Test Time Test Comments Results Result Comments Source TROPONIN I 2022-01-01 01:07:45 Test Item Value Reference Range Interpretation Comme nts TROPONIN I (test code = 0.002 ng/mL See_Comment [Au tomated message] The 9870816166) system which ge nerated this result tra nsmitted reference range : <=0.034. The reference r soumya was not used to int erpret this result as normal/abnormal . SOMMER (test code = SOMMER) Reference (Normal) Range (defined by the 99th percentile reference [...] biotin. Lab Interpretation Normal (test code = 30618-6) [id number] 22:47:07 Test Item Value Reference Interpretation Comments Range TROPONIN I (test 0.003 ng/mL See_Comment [Automated code = 3693233901) message] The system which generated this result transmitted reference range : <=0.034. The reference range was not used to [...] biotin. Lab Interpretation Normal (test code = 54236-8) [facility] [id number] 22:44:07 Test Item Value Reference Range Interpretation Comments NT-proBNP (test code 87 pg/mL See_Comment [Autom ated = 2149222527) message] The system which generated this result transmitted reference range : <=125. The reference range was not used to interpret this result as normal/abnormal . SOMMER (test code = SOMMER) Biotin has been reported to cause a negative bias, interpret results relative to patient's use of biotin. Lab Interpretation Normal (test code = 17057-8) [facility]OLIC PAN[facility] ([id number])2021-12-31 22:35:28 Test Item Value Reference Range Interpretation Comments NA (test code = 143 mmol/L 135-145 8708858381) K (test code = 4.9 mmol/L 3.5-5.0 3937483425) CL (test code = 105 mmol/L 98-108 4633477665) CO2 TOTAL (test code = 26 mmol/L 23-31 0163565438) AGAP (test code = 2-16 6933097646) BUN (test code = 8 mg/dL 7-23 9227669330) GLUCOSE (test code = 95 mg/dL 70-110 4778458068) CREATININE (test code = 0.62 mg/dL 0.50-1.04 6796375583) TOTAL BILI (test code = 0.7 mg/dL 0.1-1.7 3161242804) CALCIUM (test code = 9.9 mg/dL 8.6-10.6 9702936617) T PROTEIN (test code = 8.6 g/dL 6.3-8.2 H 3389270237) ALBUMIN (test code = 5.1 g/dL 3.5-5.0 H 5064053013) ALK PHOS (test code = 126 U/L 34-122 H 4715985532) ALTv (test code = 31 U/L 5-35 1742-6) AST(SGOT) (test code = 37 U/L 13-40 0704693126) eGFR (test code = mL/min/1.73m2 1547967258) SOMMER (test code = SOMMER) Association of [...] tests). Lab Interpretation Abnormal (test code = 23340-7) [facility] WITH [id number] 22:24:06 Test Item Value Reference Range Interpretation Comments WBC (test code = See_Comment [Automated 8586-2) message] The sy stem which generated this result transmitted reference range : 4.30 - 11.10 10*3/?L. The reference range was not used to interpret this result as normal/abnormal . RBC (test code = See_Comment H [Automated 652-9) message] The sy stem which generated this result transmitted reference range : 3.93 - 5.25 10*6/?L. The reference range was not used to interpret this result as normal/abnormal . HGB (test code = 15.4 g/dL 11.6-15.0 H 718-7) HCT (test code = 47.9 % 35.7-45.2 H 4544-3) MCV (test code = 87.6 fL 80.6-95.5 787-2) MCH (test code = 28.2 pg 25.9-32.8 785-6) MCHC (test code = 32.2 g/dL 31.6-35.1 786-4) RDW-SD (test code = 40.8 fL 39.0-49.9 86877-6) RDW-CV (test code = 12.7 % 12.0-15.5 788-0) PLT (test code = See_Comment [Automated 777-3) message] The sy stem which generated this result transmitted reference range : 166 - 358 10*3/ ?L. The reference r soumya was not used to interpret this result as normal/abnormal . MPV (test code = 10.3 fL 9.5-12.9 81892-1) NRBC/100 WBC (test See_Comment [Automat ed code = 1390717327) message] The system which generated this result transmitted reference range : 0.0 - 10.0 /100 WBCs. The refer ence range was not u sed to interpret th is result as normal/abnormal . NRBC x10^3 (test code <0.01 See_Comment [Auto mated = 8428384900) message] The s ystem which generated this result transmitted reference range : 10*3/?L. The reference range was not used to interpret this result as normal/abnormal . GRAN MAT (NEUT) % 69.1 % (test code = 770-8) IMM GRAN % (test code 0.50 % = 0144716482) LYMPH % (test code = 21.9 % 736-9) MONO % (test code = 6.5 % 5905-5) EOS % (test code = 1.5 % 713-8) BASO % (test code = 0.5 % 706-2) GRAN MAT x10^3(ANC) 5.82 10*3/uL 1.88-7.09 (test code = 4769676804) IMM GRAN x10^3 (test 0.04 10*3/uL 0.00-0.06 code = 9194496159) LYMPH x10^3 (test code 1.85 10*3/uL 1.32-3.29 = 731-0) MONO x10^3 (test code 0.55 10*3/uL 0.33-0.92 = 742-7) EOS x10^3 (test code = 0.13 10*3/uL 0.03-0.39 711-2) BASO x10^3 (test code 0.04 10*3/uL 0.01-0.07 = 704-7) Lab Interpretation Abnormal (test code = 96288-3) [facility] 08:10:11 Test Item Value Reference Range Interpretation Comments DIGOXIN (test code = <0.4 0.8-1.6 L 2108566121) SOMMER (test code = SOMMER) Arrythmias: ?1.5 - 2.0 ng/mLToxic Range: ? Greater than or equal to 2.4 ng/mL Lab Interpretation (test Abnormal code = 31213-0) [facility] [id number] 08:02:49 Test Item Value Reference Interpretation Comments Range TROPONIN I (test <0.012 See_Comment [Automated code = 2355739582) message] The system which generated this result [...] biotin. Lab Interpretation Normal (test code = 45680-9) [facility] [id number] 07:59:28 Test Item Value Reference Range Interpretation Comments NT-proBNP (test code 50 pg/mL See_Comment [Autom ated = 2988168816) message] The system which generated this result transmitted reference range : <=125. The reference range was not used to interpret this result as normal/abnormal . SOMMER (test code = SOMMER) Biotin has been reported to cause a negative bias, interpret results relative to patient's use of biotin. Lab Interpretation Normal (test code = 90870-1) [facility]. METABOLIC PANEL (00672)2021-12-09 07:51:30 Test Item Value Reference Range Interpretation Comments NA (test code = 141 mmol/L 135-145 8471536203) K (test code = 4.1 mmol/L 3.5-5.0 2946803762) CL (test code = 103 mmol/L 98-108 3622809933) CO2 TOTAL (test code = 28 mmol/L 23-31 9876451075) AGAP (test code = 2-16 3842950886) BUN (test code = 13 mg/dL 7-23 6139772184) GLUCOSE (test code = 104 mg/dL 70-110 7748449643) CREATININE (test code = 0.66 mg/dL 0.50-1.04 7865417330) TOTAL BILI (test code = 0.3 mg/dL 0.1-1.8 6595870414) CALCIUM (test code = 9.6 mg/dL 8.6-10.6 5058749892) T PROTEIN (test code = 7.4 g/dL 6.3-8.2 3338817956) ALBUMIN (test code = 4.5 g/dL 3.5-5.0 2117873353) ALK PHOS (test code = 135 U/L 34-122 H 1597808061) ALTv (test code = 68 U/L 5-35 H 1742-6) AST(SGOT) (test code = 31 U/L 13-40 9494102705) eGFR (test code = mL/min/1.73m2 7623830857) SOMMER (test code = SOMMER) Association of [...] tests). Lab Interpretation Abnormal (test code = 37978-3) [facility] WITH [id number] 07:37:07 Test Item Value Reference Range Interpretation Comments WBC (test code = See_Comment [Automated message] 6690-2) The system [employer] generated this result transmitted ref erence range: 4.30 - 1 1.10 10*3/?L. The re ference range was not u sed to interpret this result as normal/abnor mal. RBC (test code = See_Comment [Automated message] 789-8) The system [employer] generated this result transmitted ref erence range: [...] RDW-SD (test code 40.4 fL 39.0-49.9 = 74391-6) RDW-CV (test code 12.9 % 12.0-15.5 = 788-0) PLT (test code = See_Comment [Automated message] 777-3) The system whic h generated this result transmitted ref erence range: 166 - 35 8 10*3/?L. The re ference range was not u sed to interpret this result as normal/abnor mal. MPV (test code = 10.0 fL 9.5-12.9 28755-5) NRBC/100 WBC (test See_Comment [Automat ed message] code = 1810938457) The syste m which generated this result transmitted ref erence range: 0.0 - 10 .0 /100 WBCs. The refer ence range was not u sed to interpret this result as normal/abnor mal. NRBC x10^3 (test <0.01 See_Comment [Automated message] code = 4445414427) The syste m which generated this result transmitted ref erence range: 10*3/?L. The reference range was not used to interpr et this result as normal/abnormal . GRAN MAT (NEUT) % 55.6 % (test code = 770-8) IMM GRAN % (test 0.70 % code = 1004738466) LYMPH % (test code 33.9 % = 736-9) MONO % (test code 7.8 % = 5905-5) EOS % (test code = 1.7 % 713-8) BASO % (test code 0.3 % = 706-2) GRAN MAT 3.91 10*3/uL 1.88-7.09 x10^3(ANC) (test code = 2492786896) IMM GRAN x10^3 0.05 10*3/uL 0.00-0.06 (test code = 3993734678) LYMPH x10^3 (test 2.39 10*3/uL 1.32-3.29 code = 731-0) MONO x10^3 (test 0.55 10*3/uL 0.33-0.92 code = 742-7) EOS x10^3 (test 0.12 10*3/uL 0.03-0.39 code = 711-2) BASO x10^3 (test <0.03 0.01-0.07 code = 704-7) [facility] [id number] 14:56:41 Test Item Value Reference Range Interpretation Comments Ventricular rate (test code = 253) Atrial rate (test code = 255) ME interval (test code = 266) QRSD interval [...] of 17-MAR-2021 15:19,-No significant change was found- [facility] [id number] 12:41:23 Test Item Value Reference Range Interpretation Comments Urine culture isolate Mixed alok <=10-3 (test code = 77132-1) col/cc [facility] HospitalTransthoracic Echocardiogram Complete, (w Contrast, Strain and 3D if needed)2021-03-18 23:04:52 Test Item Value Reference Range Interpretation Comments Ao Root Diameter (test code = 2.73 cm 1121040068) AoV Area, Vmax (test code = 2.24 cm2 9267514465) AoV Area, VTI (test code = 2.25 cm2 5121873008) AoV Mean PG (test code = mmHg 6109255937) AoV Peak PG (test code = mmHg 4609274419) AoV Vmax (test code = 7049273944) 1.46 m/s AoV VTI (test code = 5368843379) 0.28 m IVS,d (test code = 1210013425) 0.72 cm IVS/LVPW,2D (test code = 4467756545) Left Atrium Dimension Anterior 2.68 cm (test code = 9192348129) LV,d (test code = 1287146213) 3.69 cm LV EF,2D (test code = 0454594394) 79.68 % LV,s (test code = 7105653187) 2.17 cm LVOT area (test code = 5432736181) 2.75 cm2 LVOT Diam,S (test code = 1.87 cm 7016372663) LVOT Vmax (test code = 7630814600) 1.18 m/s LVOT VTI (test code = 7734569166) 0.23 m LVPWD,d (test code = 4770395903) 0.65 cm PV Pk Grad (test code = 0555433139) mmHg PV VMAX (test code = 1097370512) 0.84 m/s RVOT Vmax (test code = 1658978281) 0.85 m/s RVSP (TR) (test code = 0184034192) mmHg TR Vpeak (test code = 9725489575) 2.86 mm/s MV E A ratio (test code = 3376549869) RA pressure (test code = mmHg 3437017599) TR pk grad (test code = 7715270741) mmHg MR Vmax (test code = 3791526337) 5.49 m/s E wave decelartion time (test code msec = 3353824189) MV Peak A Alf (test code = 0.76 m/s 6086755466) MV valve area p 1/2 method (test 3.26 cm2 code = 8199519352) MV Peak E Alf (test code = 0.92 m/s 6788393719) MV stenosis pressure 1/2 time (test 67.54 ms code = 5449602885) LVOT stroke volume (test code = 0.63 cm3 4914556015) AV LVOT peak gradient (test code = mmHg 5825015045) RVSP (test code = 9276890798) mmHg Ao Root Diameter (test code = 2.73 cm 5233409606) MV mean gradient (test code = mmHg 1273964986) LV SYS VOL (test code = 5644410946) 15.61 ml LV MARTINS VOL (test code = 57.63 ml 0974052354) LA area s A4C (test code = 11.16 cm2 9672727255) LV SV Teich 2D (test code = 42.02 ml 8779221776) LV Vol s Teich PSAX (test code = 15.61 ml 7139563538) MR peak grad (test code = mmHg 6572846282) MV Vmax (test code = 3710795072) 1.21 m MV VTI Tips (test code = 0.24 m 4641646307) RVOT pk grad (test code = mmHg 7200337248) AoV Vmn (test code = 6453155329) LV FS Teich 2D (test code = 3890951001) MV AE ratio (test code = 2449096265) LV FS Cube 2D (test code = 4092712707) LVOT Vmn (test code = 1478664362) Aov area Vmn (test code = 2.13 cm2 6694557638) LVOT mean grad (test code = mmHg 5621115005) MAX Pred HR (test code = 4901423602) 85 of MPHR (test code = 7711949960) Calc MPHR (test code = 1353210386) bpm LV SV Cube 2D (test code = 39.93 ml 2034647677) LV vol d cube 2D (test code = 50.11 ml 6478588762) LV vol s cube 2D (test code = 10.18 ml 8324654441) MV Decel slope (test code = 3.97 m/s2 2207787299) Pred Exer Dur R1 (test code = 9826260049) Pred METS R1 (test code = 8142874745) LA Vol MOD A4C (test code = 24.20 ml 9246103663) Velocity Ratio (V1/V2) (test code = 0.81 m/s 4689) EF (test code = 3720878277) 72.91 % E/A ratio (test code = 9867278329) LVOT VTI (CM) (test code = 23.00 cm 8059344745) SOMMER (test code = SOMMER) [facility] [id number] 17:32:37 Test Item Value Reference Range Interpretation Comments POC glucose (test code = 77329-0) 207 mg/dL 65-99 H Lab Interpretation (test code = Abnormal 06494-1) [facility] duplex venous lower [id number] 01:17:37 EXAMINATION: US DUPLEX VENOUS LOWER EXTREMITY [...] is no evidence of deep venous thrombosis. [facility]-[id number] Interface, Radiology Results 03/17/2021 8:20 PM CDT [...] There is no evidence of deep venous thrombosis.[facility]-[id number] HospitalXR Chest 1 Vw [id number] 21:32:52EXAMINATION: XR CHEST 1 VW PORTABLE CLINICAL HISTORY: 40 years Female SOB COMPARISON: None. IMPRESSION: Lines, tubes, and devices: Right-sided transvenous cardiac pacemaker. Heart and mediastinum: Cardiomediastinal silhouette is normal. Lungs and pleura: There is no focal airspace disease, pleuraleffusion or pneumothorax. Bones/soft tissues: No acute osseous abnormality. [facility]-[id number] Dictatedand approved by vice president medical affairs/fellow: Cristhian Calixto M.D. I, Jan Scott MD, personally reviewed the images and resident's/fellow's findings and agree with the final report. Interface, Rad iology Results - 03/17/2021 4:35 PM CDTFormatting of this note might be different from theoriginal.EXAMINATION: XR CHEST 1 VW PORTABLECLINICAL HISTORY: 40 years Female SOBCOMPARISON: None.IMPRESSION:Lines, tubes, and devices: Right-sided transvenous cardiac pacemaker.Heart and mediastinum: Cardiomediastinal silhouette is normal.Lungs and pleura: There is no focal airspace disease, pleural effusion or pneumothorax.Bones/soft tissues: No acute osseous abnormality.[facility]-[id number] and approved by vice president medical affairs/fellow: Cristhian Calixto M.D.I, Jan Scott MD, personally rev iewed the images and resident's/fellow's findings and agree with the final report.[facility] HospitalARRYTHMIA IMPLANT REPORT - [id number] 20:45:31 Ordered by an unspecified provider.[facility] ED Preliminary Interpretation - Not an [id number] 20:36:46 Test Item Value Reference Range Interpretation Comments SOMMER (test code = SOMMER) Lab Interpretation (test code = Abnormal 10370-1) [facility] Metabolic Gndqx2904-27-20 07:01:00 Test Item Value Reference Range Interpretation Comments Sodium (test code = 137 meq/L 772-918 4134-2) Potassium (test code = 4.3 meq/L 3.5-5.1 2823-3) Chloride (test code = 104 meq/L 98-107 2075-0) CO2 (test code = 24 meq/L 22-29 8-9) BUN (test code = 15 mg/dL 7- 3094-0) Creatinine (test code 0.81 mg/dL 0.57-1.25 = 2160-0) Glucose (test code = 108 mg/dL 70-105 H 2345-7) Calcium (test code = 9.2 mg/dL 8.4-10.2 38889-8) EGFR (test code = 79 mL/min/1.73 [place] [address]-4) NOT ACCURATE CREATININE CLEARANCE IN PREDICTING GLOMERULAR FILTRATION RATE . ESTIMATED GFR I S NOT APPLICABLE FOR DIALYSIS PATIENTS. SOMMER (test code = SOMMER) Mash Grinder ID - MACHELLE Carlos Lab Interpretation Abnormal (test code = 45934-7) [facility] 07:01:00 Test Item Value Reference Range Interpretation Comments Magnesium (test code = 2.5 mg/dL 1.6-2.6 05639-8) SOMMER (test code = SOMMER) Mash Grinder ID - MACHELLE L Lab Interpretation (test Normal code = 98546-3) [facility]osphorus[facility]21-[facility]-21 07:01:00 Test Item Value Reference Range Interpretation Comments Phosphorus (test code = 4.3 mg/dL 2.3-4.7 2777-1) SOMMER (test code = SOMMER) Mash Grinder ID - MACHELLE L Lab Interpretation (test Normal code = 77173-3) [facility] Center[facility]ABOLIC [id number] 07:01:00 Test Item Value Reference Range Interpretation [...] S NOT APPLICABLE FOR DIALYSIS PATIEN TS. Mash Grinder ID - MACHELEL [id number] 07:01:00 Test Item Value Reference Range Interpretation Comments MAGNESIUM (BEAKER) (test code = 2.5 mg/dL 1.6-2.6 627) Mash Grinder ID - MACHELLE BLDOVWQCRAZ6481-93-52 07:01:00 Test Item Value Reference Range Interpretation Comments PHOSPHORUS (BEAKER) (test code = 4.3 mg/dL 2.3-4.7 604) Mash Grinder ID - PIAYA LCBC with platelet count + automated ygvq1026-72-08 05:37:00 Test Item Value Reference Range Interpretation Comments WBC (test code = 6690-2) 6.8 See_Comment [A utomated message] The system [employer] generated this result transmitted ref erence range: 3.5 - 10 .5 K/L. The refe rence range was not u sed to interpret this result as normal/abnor mal. RBC (test code = 789-8) 5.14 See_Comment [Au tomated message] The system [employer] generated this result transmitted ref erence range: 3.93 - 5 .22 M/L. The refe rence range was not u sed to interpret this result as normal/abnor mal. MCHC (test code = 786-4) 31.6 See_Comment L [A utomated message] The system [employer] generated this result transmitted ref erence range: [...] See_Comment [Aut omated message] 777-3) The system [employer] generated this result transmitted ref erence range: 150 - 45 0 K/CU MM. The referen ce range was not u sed to interpret this result as normal/abnor mal. MPV (test code = 10.0 fL 9.4-12.3 63060-3) nRBC (test code = 413) 0 See_Comment [Aut omated message] The system [employer] generated this result transmitted ref erence range: [...] See_Comment [Aut omated message] 670) The system [employer] generated this result transmitted ref erence range: 1.56 - 6 .13 K/L. The refe rence range was not u sed to interpret this result as normal/abnor mal. # Lymphs (test code = 2.10 See_Comment [Auto mated message] 414) The system [employer] generated this result transmitted ref erence range: 1.18 - 3 .74 K/L. The refe rence range was not u sed to interpret this result as normal/abnor mal. # Monos (test code = 0.48 See_Comment H [Autom ated message] 415) The system [employer] generated this result transmitted ref erence range: 0.24 - 0 .36 K/L. The refe rence range was not u sed to interpret this result as normal/abnor mal. # Eos (test code = 416) 0.26 See_Comment [Au tomated message] The system [employer] generated this result transmitted ref erence range: 0.04 - 0 .36 K/L. The refe rence range was not u sed to interpret this result as normal/abnor mal. # Baso (test code = 417) 0.04 See_Comment [A utomated message] The system [employer] generated this result transmitted ref erence range: 0.01 - 0 .08 K/L. The refe rence range was not u sed to interpret this result as normal/abnor mal. Immature 1 % 0-1 Granulocytes-Relative (test code = 2801) Lab Interpretation (test Abnormal code = 23935-6) [facility] W/PLT COUNT & AUTO [id number] 05:37:00 Test Item Value Reference Range Interpretation [...] code = 2801) MR, MRA, BRAIN, WITHOUT [id number] 16:54:00Reason for exam:->Ischemic Stroke Evaluation[facility] : 1980 Sex: FFINAL REPORT MR, BRAIN, WITHOUT CONTRAST, MR, MRA, BRAIN, WITHOUT CONTRAST, MR, MRA, NECK, WITHOUT IV CONTRAST INDICATION: Stroke, follow upIschemic Stroke Evaluation TECHNIQUE: Multiplanar, multisequence MR imaging of the brain without intravenous contrast.MRA of the head utilizing 3-D hrbk-cj-aldxgm technique, with 3-D reconstructions.MRA of the neck utilizing 2-D and 3-D nkaa-au-jvlcyl technique, with 3-D reconstructions. COMPARISON: MRI and [...] 02/11/2021 16:54:16 MR, MRA, NECK, WITHOUT IV [id number] 16:54:00Reason for exam:->[facility]schemic Stroke [facility] : 1980 Sex: FFINAL REPORT MR, BRAIN, WITHOUT CONTRAST, MR, MRA, BRAIN, WITHOUT CONTRAST, MR, MRA, NECK, WITHOUT IV CONTRAST INDICATION: Stroke, follow upIschemic Stroke Evaluation TECHNIQUE: Multiplanar, multisequence MR imaging of the brain without intravenous contrast.MRA of the head utilizing 3-D fssh-ka-lhhfht technique, with 3-D reconstructions.MRA of the neck utilizing 2-D and 3-D kwhr-zi-rqhcig technique, with 3-D reconstructions. COMPARISON: MRI and [...] Verified Date/Time: 02/11/2021 16:54:16 MR, BRAIN, WITHOUT [id number] 16:54:00Reason for exam:->Ischemic Stroke Evaluation [facility] : 1980 Sex: FFINAL REPORT MR, BRAIN, WITHOUT CONTRAST, MR, MRA, BRAIN, WITHOUT CONTRAST, MR, MRA, NECK, WITHOUT IV CONTRAST INDICATION: Stroke, follow upIschemic Stroke Evaluation TECHNIQUE: Multiplanar, multisequence MR imaging of the brain without intravenous contrast.MRA of the head utilizing 3-D anve-mv-jkmxis technique, with 3-D reconstructions.MRA of the neck utilizing 2-D and 3-D atku-jf-biwswd technique, with 3-D reconstructions. COMPARISON: MRI and [...] Date/Time: 02/11/2021 16:54:16 MR brain without IV cxpstxqb9522-82-79 16:54:00Interface, External Ris In - 02/11/2021 4:56 PM CDTFINAL REPORT MR, BRAIN, WITHOUT CONTRAST, MR, MRA, BRAIN, WITHOUT CONTRAST, MR, MRA, NECK, WITHOUT IV CONTRAST INDICATION: Stroke, follow upIschemic Stroke Evaluation TECHNIQUE: Multiplanar, multisequence MR imaging of the brain without intravenous contrast.MRA of the head utilizing 3-D cnnx-td-xsrela technique, with 3-D reconstructions.MRA of the neck utilizing 2-D and 3-D ixlk-ya-kxaapk technique, with 3-D reconstructions. COMPARISON: MRI and [...] the head and neck. Signed: Lakshmi Amador [facility] Verified Date/Time: 02/11/2021 16:54:16 [facility] qtagpjzw7588-62-25 16:54:00Interface, External Ris In - 02/11/2021 4:56 PM CDTFINAL REPORT MR, BRAIN, WITHOUT CONTRAST, MR, MRA, BRAIN, WITHOUT CONTRAST, MR, MRA, NECK, WITHOUT IV CONTRAST INDICATION: Stroke, follow upIschemic Stroke Evaluation TECHNIQUE: Multiplanar, multisequence MR imaging of the brain without intravenous contrast.MRA of the head utilizing 3-D cyhu-mo-enssoa technique, with 3-D reconstructions.MRA of the neck utilizing 2-D and 3-D vaot-zf-btiywj technique, with 3-D reconstructions. COMPARISON: MRI and [...] Lakshmi Amador Verified Date/Time: 02/11/2021 16:54:16 [facility] without IV hiesisgk2497-26-27 16:54:00Interface, External Ris In - 02/11/2021 4:56 PM CDTFINAL REPORT MR, BRAIN, WITHOUT CONTRAST, MR, MRA, BRAIN, WITHOUT CONTRAST, MR, MRA, NECK, WITHOUT IV CONTRAST INDICATION: Stroke, follow upIschemic Stroke Evaluation TECHNIQUE: Multiplanar, multisequence MR imaging of the brain without intravenous contrast.MRA of the head utilizing 3-D jbvg-tn-dwqdrs technique, with 3-D reconstructions.MRA of the neck utilizing 2-D and 3-D njsf-un-kcrhmm technique, with 3-D reconstructions. COMPARISON: MRI and [...] Lakshmi Amador Verified Date/Time: 02/11/2021 16:54:16 [facility]RPR[facility]21-[facility] 14:02:00 Test Item Value Reference Range Interpretation Comments RPR (test code = 93189-0) Nonreactive Nonreactive Lab Interpretation (test code = Normal 36461-8) [facility] 14:02:00 Test Item Value Reference Range Interpretation Comments RPR SCREEN (BEAKER) (test code = Nonreactive Nonreactive 420) Hemoglobin [id number] 09:35:00 Test Item Value Reference Range Interpretation Comments Hemoglobin A1C (test code = 4548-4) 6.0 % 4.3-6.1 Lab Interpretation (test code = Normal 80740-7) [facility] CenterHEMOGLOBIN [id number] 09:35:00 Test Item Value Reference Range Interpretation Comments HEMOGLOBIN A1C (BEAKER) (test code = 6.0 % 4.3-6.1 368) Rapid drug screen, [id number] 07:26:00 Test Item Value Reference Range Interpretation Comments Barbiturate Screen Negative Negative (test code = 00604-8) Benzodiazepine Screen Negative Negative (test code = 15142-9) Cocaine (Metab.) Negative Negative Screen (test code = 3397-7) Methadone Screen (test Negative Negative code = 98101-7) Opiate Screen (test Negative Negative code = 34750-2) Cannabinoid Screen Negative Negative (test code = 01309-8) Amph/Methamph Screen Negative Negative (test code = 92208-0) Phencyclidine Screen Negative Negative (test code = 28668-8) pH, UA (test code = 6.5 5.0-8.0 5803-2) SOMMER (test code = SOMMER) DRUG CUTOFF CONC.Cocaine 300 ng/mL Cannabinoid 50 ng/mLBenzodiazepine 200 ng/mLBarbiturate 200 ng/mLPhencyclidine 25 ng/mLOpiate 300 ng/mLMethadone 300 ng/mLAmphetamine/ 1000 ng/mL Methamphetamine This assay provides an unconfirmed qualitative test result for the clinical management of patients in emergency situations. Chain of custody not maintained. Some cecv-fhf-puznalw medications, as well as adulterants, may cause inaccurate results. Clinical correlation should be applied. A more comprehensive drug screen or confirmation of a detected drug may be performed upon request.Mash Grinder ID - VIET Jerez Lab Interpretation Normal (test code = 57660-3) [facility] CenterRAPID DRUG SCREEN, [id number] 07:26:00 Test Item Value Reference Range Interpretation [...] situations. Chain of custody not maintained. Some nuwy-bwt-wcvxyef medications, as well as adulterants, may cause inaccurate results. Clinical correlation should be applied. A more comprehensivedrug screen or confirmation of a detected drug may be performed upon request.Mash Grinder ID - VIET MUrinalysis with Microscopic If Idjppkwcj4905-84-53 07:11:00 Test Item Value Reference Range Interpretation Comments Color, UA (test code = Light Yellow 5778-6) Clarity, UA (test code = Clear 5767-9) Specific Guttenberg, UA (test 1.012 1.001-1.035 code = 5811-5) pH, UA (test code = 6.5 5.0-8.0 5803-2) Protein, UA (test code = Negative Negative 41760-8) Glucose, UA (test code = Negative Negative 365) Ketones, UA (test code = Negative Negative 2514-8) Bilirubin, UA (test code = Negative Negative 01058-1) Blood, UA (test code = Small Negative A 13412-9) Nitrite, UA (test code = Negative Negative 5802-4) Leukocytes, UA (test code Small Negative A = 5799-2) Urobilinogen, UA (test 0.2 mg/dL 0.2-1 code = 93740-3) Specimen Source (test code = 2795) SOMMER (test code = SOMMER) Mash Grinder ID - [auto]Mash Grinder ID - tech Lab Interpretation (test Abnormal code = 25866-2) [facility] CenterUrinalysis Microscopic [id number] 07:11:00 Test Item Value Reference Range Interpretation Comments RBC, UA (test 11 See_Comment [Automated me ssage] code = 78582-0) The system w [employer] generated this result transmitted ref erence range: /HPF. Th e reference range was not used to int erpret this result as normal/abnormal . WBC, UA (test 11 See_Comment [Automated me ssage] code = 5821-4) The system [facility] generated this result transmitted ref erence range: /HPF. Th e reference range was not used to int erpret this result as normal/abnormal . Mucus (test Rare code = 8247-9) Squam Epithel, 3 See_Comment [Automated m essage] UA (test code = The system w [facility] 52860-7) generated this result transmitted ref erence range: /HPF. Th e reference range was not used to int erpret this result as normal/abnormal . SOMMER (test code Mash Grinder ID - tech = SOMMER) [facility] CenterURINALYSIS WITH MICROSCOPIC IF [id number] 07:11:00 Test Item Value Reference Range Interpretation [...] = 463) SOURCE(BEAKER) (test code = 2795) Mash Grinder ID - [auto]Mash Grinder ID - techURINALYSIS BSBWFXCEZJU3371-16-97 07:11:00 Test Item Value Reference Range Interpretation Comments RBC UA (BEAKER) (test code = 519) 11 /HPF WBC UA (BEAKER) (test code = 520) 11 /HPF MUCUS (BEAKER) (test code = 1574) Rare SQUAMOUS EPITHELIAL (BEAKER) (test 3 /HPF code = 516) Mash Grinder ID - techDigoxin fatwr4098-80-06 06:22:00 Test Item Value Reference Range Interpretation Comments Digoxin Lvl (test code = <0.30 0.8-2 L 33235-7) SOMMER (test code = SOMMER) Mash Grinder ID - PIAYA L Lab Interpretation (test Abnormal code = 33735-2) [facility] CenterDIGOXIN [id number] 06:22:00 Test Item Value Reference Range Interpretation Comments DIGOXIN LEVEL (BEAKER) (test code = < ng/mL 0.80-2.00 L 669) Mash Grinder ID - MACHELLE APaziprhwbdho5592-77-45 05:58:00 Test Item Value Reference Range Interpretation Comments Homocysteine (test code = 7.3 umol/L 5.1-15.4 16047-0) SOMMER (test code = SOMMER) Mash Grinder ID - PIAYA L Lab Interpretation (test Normal code = 97883-2) [facility] CenterTSH/Free T4 If Pcthmurxp9755-93-22 05:58:00 Test Item Value Reference Range Interpretation Comments TSH (test code = 4.368 See_Comment [Automated 83927-0) message] The system which generated this result transmit aida reference range : 0.350 - 4.940 uIU/mL. The reference range was not used to interpret this result as normal/abnormal . SOMMER (test code = SOMMER) Mash Grinder ID - PIAYA L Lab Interpretation Normal (test code = 79542-0) [facility] CenterVitamin B12 and Uhswgs6457-48-07 05:58:00 Test Item Value Reference Range Interpretation Comments Vitamin B12 (test 557 pg/mL 213-816 code = 2132-9) Folate (test code = 11.20 ng/mL See_Comment [Automa aida 2284-8) message] The system which generated this result transmit aida reference range : >=7.00. The reference range was not used to interpret this result as normal/abnormal . SOMMER (test code = SOMMER) Mash Grinder ID - MACHELLE L Lab Interpretation Normal (test code = 03752-7) [facility] CenterHOMOCYSTEINE2021-05-20 05:58:00 Test Item Value Reference Range Interpretation Comments HOMOCYSTEINE (BEAKER) (test code = 7.3 umol/L 5.1-15.4 642) Mash Grinder ID - MACHELLE LTSH/FREE T4 IF MOSEUOPZC2152-43-34 05:58:00 Test Item Value Reference Range Interpretation Comments THYROID STIMULATING HORMONE 4.368 uIU/mL 0.350-4.940 (BEAKER) (test code = 772) Mash Grinder ID - MACHELLE LVITAMIN B12 AND [id number] 05:58:00 Test Item Value Reference Range Interpretation Comments VITAMIN B12 557 pg/mL 213-816 (BEAKER) (test code = 774) FOLATE (BEAKER) 11.20 ng/mL See_Comment [Automated message] (test code = 362) The system which generated this result transmitted ref erence range: >=7.00. The reference range was not used to interpr et this result as normal/abnormal . Mash Grinder ID - MACHELLE LC-Reactive Agkrbkb2329-58-68 04:54:00 Test Item Value Reference Range Interpretation Comments CRP (test code = 676) 0.81 mg/dL 0-0.5 H SOMMER (test code = SOMMER) Mash Grinder ID - SHAMIKAAYA L Lab Interpretation (test Abnormal code = 13216-7) [facility] CenterMAGNESIUM2021-05-20 04:54:00 Test Item Value Reference Range Interpretation Comments MAGNESIUM (BEAKER) 2.1 mg/dL 1.6-2.6 Specimen slightly (test code = 627) hemolyzed Mash Grinder ID - SHAMIKADEANN [id number] 04:54:00 Test Item Value Reference Range Interpretation Comments PHOSPHORUS (BEAKER) 4.3 mg/dL 2.3-4.7 Specimen slightly (test code = 604) hemolyzed Mash Grinder ID - MACHELLE LBASIC METABOLIC [id number] 04:54:00 Test Item Value Reference Range Interpretation [...] S NOT APPLICABLE FOR DIALYSIS PATIEN TS. Mash Grinder ID - SHAMIKAAYA LC-REACTIVE [id number] 04:54:00 Test Item Value Reference Range Interpretation Comments C-REACTIVE PROTEIN (BEAKER) (test 0.81 mg/dL 0.00-0.50 H code = 676) Mash Grinder ID - MACHELLE LCBC W/PLT COUNT & AUTO [id number] 02:54:00 Test Item Value Reference Range Interpretation [...] = 2801) RAD, CHEST, 1 VIEW, NON [id number] 22:40:00Reason for exam:->strokeShould this be performed at the bedside?->Yes [facility] 1980 Sex: [...] Nieves Verified Date/Time: 02/10/2021 22:40:02 Reading Location: [address] Transitional Reading Room XR chest 1 view portable / [id number] 22:40:00Interface, External Ris In - 02/10/2021 10:42 [...] Nieves Verified Date/Time: 02/10/2021 22:40:02 Reading Location: [address] Transitional Reading Room [facility] W/PLT COUNT & AUTO [id number] 22:16:00 Test Item Value Reference Range Interpretation [...] Range Interpretation Comments BNP (test code = 61216-5) <10 0-100 SOMMER (test code = SOMMER) Mash Grinder ID - BS Lab Interpretation (test Normal code = 61244-3) [facility] CenterB-TYPE NATRIURETIC FACTOR (BNP)2021-02-10 22:04:00 Test Item Value Reference Range Interpretation Comments B-TYPE NATRIURETIC PEPTIDE (BEAKER) < pg/mL 0-100 (test code = 700) Mash Grinder ID - BSHigh Sensitivity Troponin I (BSC/Haley Only)2021-02-10 21:57:00 Test Item Value Reference Range Interpretation Comments Troponin I HS <4 See_Comment [Automated (test code = message] The 16054-4) system which generated this result transmitted reference range : <=17 pg/ml. The reference range was not used to interpret this result as normal/abnormal . SOMMER (test code = Mash Grinder ID - SOMMER) BSThe ANIMAL FEEDER STAT High Sensitivity Troponin-I results should be used in conjunction with other diagnostic information such as ECG, clinical observations and information, and patient symptoms to aid in the diagnosis of NV. Lab Interpretation Normal (test code = 55584-5) [facility] TROPONIN [id number] 21:57:00 Test Item Value Reference Range Interpretation Comments HIGH SENSITIVITY < pg/ml See_Comment [Automated message] TROPONIN I (test code = The system which 8366074) generated this result transmitted ref erence range: <=17. Th e reference range was not used to interpr et this result as normal/abnormal . Mash Grinder ID - BSThe ANIMAL FEEDER STAT High Sensitivity Troponin-I results should be used in conjunctionwith other diagnostic information such as ECG, clinical observations and information, and patient symptoms to aid in the diagnosis of NV.Lipid [id number] 21:54:00 Test Item Value Reference Range Interpretation Comments Triglycerides (test 171 mg/dL Specimen code = 2571-8) markedly hemolyzed Cholesterol (test 218 mg/dL Specimen code = 2093-3) markedly hemolyzed HDL (test code = 47 mg/dL 5-9) LDL Calculated (test 137 mg/dL code = 90793-3) SOMMER (test code = Triglyceride SOMMER) Reference Range: Low Risk <150 Borderline 150-199 High Risk 200-499 Very High Risk >=500 Cholesterol Reference Range: Low Risk <200 Borderline 200-239 High Risk >240 HDL Cholesterol Reference Range: Low Risk >=60 High Risk <40 LDL Cholesterol Reference Range: Optimal <100 Near Optimal 100-129 Borderline 130-159 High 160-189 Very High >=190 Mash Grinder ID - BS [facility] [id number] 21:54:00 Test Item Value Reference Range Interpretation [...] Borderline 130-159 High 160-189 Very High >=190 Mash Grinder ID - BSComprehensive metabolic [id number] 21:52:00 Test Item Value Reference Range Interpretation Comments Protein, Total 8.0 See_Comment Specimen slig htly (test code = hemolyzed 2884-2) [Automated message] The system which generated this result transmit aida reference range : 6.0 - 8.3 gm/dL . The reference range was not u sed to interpret th is result as normal/abnormal . Albumin (test code 4.2 g/dL 3.5-5 Specimen slightly = 69548-0) hemolyzed Alkaline 135 U/L 40-150 Phosphatase (test code = 6768-6) Total Bilirubin 0.2 mg/dL 0.2-1.2 Specimen sli ghtly (test code = hemolyzed 1974-) Sodium (test code = 139 meq/L 828-598 4050-2) Potassium (test 4.5 meq/L 3.5-5.1 Specimen sli ghtly code = 2823-3) hemolyzed Chloride (test code 103 meq/L 98-107 = 2075-0) CO2 (test code = 25 meq/L -2027-) BUN (test code = 9 mg/dL 7-21 3094-0) Creatinine (test 0.78 mg/dL 0.57-1.25 Specimen sl ightly code = 2160-0) hemolyzed Glucose (test code 105 mg/dL 70-105 = 2345-7) Calcium (test code 9.6 mg/dL 8.4-10.2 = 57845-1) AST (test code = 28 U/L 5-34 Specimen sl ightly 1920-8) hemolyzed ALT (test code = 52 U/L 6-55 Specimen sl ightly 1742-6) hemolyzed EGFR (test code = 82 mL/min/1.73 [place] [address]-2) NOT ACCURATE CREATININE CLEARANCE IN PREDICTING GLOMERULAR FILTRATION RATE . ESTIMATED GFR I S NOT APPLICABLE FOR DIALYSIS PATIEN TS. SOMMER (test code = Mash Grinder ID - BS SOMMER) [facility] Kinase (CK)2021-02-10 21:52:00 Test Item Value Reference Range Interpretation Comments Total CK (test code = 70 U/L 29-200 7-6) SOMMER (test code = SOMMER) Mash Grinder ID - BS Lab Interpretation (test Normal code = 49810-8) [facility]MAGN[facility]IUM2021-05-19 21:52:00 Test Item Value Reference Range Interpretation Comments MAGNESIUM (BEAKER) 2.2 mg/dL 1.6-2.6 Specimen slightly (test code = 627) hemolyzed Mash Grinder ID - AFDODPDTIOET1095-56-92 21:52:00 Test Item Value Reference Range Interpretation Comments PHOSPHORUS (BEAKER) 4.4 mg/dL 2.3-4.7 Specimen slightly (test code = 604) hemolyzed Mash Grinder ID - BSCOMPREHENSIVE METABOLIC [id number] 21:52:00 Test Item Value Reference Range Interpretation [...] S NOT APPLICABLE FOR DIALYSIS PATIEN TS. Mash Grinder ID - BSCREATINE KINASE (CK)2021-02-10 21:52:00 Test Item Value Reference Range Interpretation Comments CREATINE KINASE TOTAL (BEAKER) (test 70 U/L 29-200 code = 380) Mash Grinder ID - [id number] 21:46:00 Test Item Value Reference Range Interpretation Comments PTT (test code = 04844-8) 30.5 See_Comment [ Automated message] The system [employer] generated this result transmitted ref erence range: 22.5 - 3 6.0 seconds. The re ference range was not u sed to interpret this result as normal/abnor mal. Lab Interpretation (test Normal code = 31115-9) [facility] CenterLactic acid, [id number] 21:46:00 Test Item Value Reference Range Interpretation Comments Lactate, Venous (test 1.96 mmol/L 0.5-2.2 Specim en code = 2872) markedly hemolyzed SOMMER (test code = SOMMER) Mash Grinder ID - BS Lab Interpretation Normal (test code = 17444-3) [facility] CenterAPTT2021-[facility]-19 21:46:00 Test Item Value Reference Range Interpretation Comments PARTIAL THROMBOPLASTIN TIME 30.5 seconds 22.5-36.0 (BEAKER) (test code = 760) LACTIC ACID, [id number] 21:46:00 Test Item Value Reference Range Interpretation Comments LACTATE BLOOD VENOUS 1.96 mmol/L 0.50-2.20 Specime n markedly (2) (BEAKER) (test hemolyzed code = 2872) Mash Grinder ID - BSProthrombin time/[id number] 21:45:00 Test Item Value Reference Interpretation Comments Range Protime (test code = 12.7 See_Comment [Autom ated 5902-2) message] The system which generated this result transmitted reference range : 11.9 - 14.2 seconds. The reference range was not used to interpret this result as normal/abnormal . INR (test code = 0.98 See_Comment [Automated 8101-6) message] The system which generated this result [...] valves. Lab Interpretation Normal (test code = 04874-8) [facility] CenterPROTHROMBIN TIME/[id number] 21:45:00 Test Item Value Reference Range Interpretation [...] 2.5-3.5 for patients with mechanical heart valves.POC-Glucose dchlj9521-63-06 21:39:00 Test Item Value Reference Range Interpretation Comments POC-Glucose Meter (test 93 mg/dL 70-110 : TE STED AT [facility] code = 1538) [address] [facility] [address]: Mash Grinder/Techni rhonda ID = [id number] for CONCEPCION CRISTINOLETICIA [place] Lab Interpretation (test Normal code = 10330-0) [facility] CenterPOCT-GLUCOSE [id number] 21:39:00 Test Item Value Reference Range Interpretation Comments POC-GLUCOSE METER 93 mg/dL 70-110 : TESTED A T 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 PAGE 1 RUN TIME: 1545 Specimen Inquiry RUN USER: INTERFACE PATIENT: ADAM MARSH LOC: [place] Vergara #: [id number] AGE/SX: 40/F ROOM: RE09/29/20REG DR: Linus Boone MD : 82 BED: DIS: STATUS: [facility] TLOC: SPEC #: [id number] RECD: 09/29/20 STATUS: MACIEL REQ #: [id number] WU: 09/29/[address]: Linus Boone MD ENTERED: 09/29/20 SP TYPE: SURG OTHR DR: Undefined Provider ORDERED: SURG PATH LVL 4 COPIES TO: Linus Boone MD [address] [place] [address] Undefined Provider HISTOLOGY: TISSUE ID BLK PCS DHIRAJ LEV PROCEDURE DISPOSITION ____ ___ ___ ___ STOMACH, NOS A 1 2 PROCEDURES: SURG PATH LVL 4 (09/29/20) TISSUES: A. STOMACH, NOS - GASTRIC BIOPSY CLINICAL HISTORY R10.13, K21.9, K92.0, R14.0, R11.2, R19.7, R19.4 CPT CODES CPT CODE(S): 45942 , , , , , , FINAL DIAGNOSIS Stomach, biopsy: MILD CHRONIC GASTRITIS NEGATIVE FOR INTESTINAL METAPLASIA, DYSPLASIA, OR MALIGNANCY NEGATIVE FOR HELICOBACTER PYLORI ORGANISMS GROSS DESCRIPTION Gastric biopsy. Received in formalin are two wilkinson tissue fragments, 0.4 cm each, all as A. bk/nr Grossing performed at [facility] Pathology, [address] [place] [address], [address], [place] [address]. Pediatric Genetic Counselor: Aditya Hanson M.D. CONTINUED ON NEXT PAGE RUN DATE: 09/30/20 [facility] - LAB PAGE 2 RUN TIME: 154 Specimen Inquiry RUN USER: INTERFACE SPEC #: [id number] PATIENT: ADAM MARSH #[id number] (Continued) MICROSCOPIC DESCRIPTION Gastric biopsy. Sections demonstrate gastric mucosa with mild chronic inflammation. No dysplasia or malignancy is identified. No evidence of Helicobacter pylori organisms or intestinal metaplasia is seen. Signed SIGNATURE ON FILE Hector Issa 09/30/20 1545 END OF REPORT COVID 19 INHOUSE [id number] 13:41:00 Test Item Value Reference Range Interpretation Comments COVID 19 INHOUSE AG NEGATIVE Negative Per manu facturer, (test code = negative result s should [id number]) be treated aspr esumptive and, if inconsi [...] symptoms co nsistent with COVID-19. BASIC METABOLIC [id number] 13:40:00 Test Item Value Reference Range Interpretation [...] MG/DL 8.5-10.1 N - XR CHEST 1 [id number] 13:33:00 [facility] : 1980 Sex: F Name: ADAM MARSH [facility] : [birth year] Age/S: 40 / F [address] [facility] [place] Unit #: [id number] Loc: [place] [address] Phys: Linus Boone MD Acct: [id number] Dis Date: Status: PRE [facility] PHONE #: [phone] Exam Date: 09/28/2020 1326 FAX #: Reason: PREOP EXAMS: CPT: [id number] XR CHEST 1 V 44268 Fluoro Time: DAP (Gy m2): Air Kerma [...] PAGE 1 Signed Report Name: ADAM MARSH [facility] : 1980 Age/S: 40 / F [address] [place] [address] [place] Unit #: [id number] Loc: [place] [address] Phys: Linus Boone MD Acct: [id number] Dis Date: Status: PRE [facility] PHONE #: [phone] Exam Date: 09/28/2020 1326 FAX #: Reason: PREOP EXAMS: CPT: [id number] XR CHEST 1 V 98145 Fluoro Time: DAP (Gy m2): Air Kerma (mGy): <Continued> Technologist: Shari Davila RT(R)(CT) Trnscb Date/Time: 09/28/2020 (0890) 16 Orig Print D/T: S: 09/28/2020 (0863) PAGE 2 SignedReportPROTHROMBIN [id number] 13:29:00 Test Item Value Reference Range Interpretation Comments PT PATIENT (test code = PTP) 10.6 SECONDS 9.3-12.9 N INTERNATIONAL NORMAL RATIO 0.95 INR Unit 0.8-1.2 N (test code = INR) THROMBOPLASTIN TIME [id number] 13:29:00 Test Item Value Reference Range Interpretation Comments THROMBOPLASTIN TIME PARTIAL 28.0 SECONDS 26-35 N (test code = PTT) CBC W/AUTO [id number] 13:26:00 Test Item Value Reference Range Interpretation [...] code NO DIFF/SCN CRITERIA = MDIFF) POCT-GLUCOSE [id number] 10:22:00 Test Item Value Reference Range Interpretation Comments POC-GLUCOSE METER 102 mg/dL 70-110 TESTED AT [place] [address] [facility] (test code = AYLIN FISHER [place] 1538) [address] MR, MRA, BRAIN, WITHOUT [id number] 09:32:00Reason for exam:->Ischemic Stroke EvaluationFINAL REPORT MRA Head CLINICAL HISTORY: Ischemic Stroke TECHNIQUE: MRA of the head utilizing 3-D rdof-am-jnpebc technique, with 3-D reconstructions. COMPARISON: None FINDINGS: There is no evidence of intracranial aneurysm, focal stenosis, or major branch vessel occlusion. IMPRESSION: No evidence for a major red devil of Mendes proximal branch vessel occlusion. MRA Neck CLINICAL HISTORY: Ischemic Stroke TECHNIQUE: MRA of the neck utilizing 2-D and 3-D blkw-mn-bulzfq technique, with 3-D reconstructions. COMPARISON: None FINDINGS: The carotid arteries in the neck are patent including their bifurcations. There is antegrade flow in the vertebral arteries in the neck. IMPRESSION: No evidence of hemodynamically significant stenosis in the cervical carotid or vertebral arteries by NASCET criteria. Signed: Santos Winn MDReport Verified Date/Time: 08/21/2018 09:32:09 Reading Location: [address] Neuro Reading Room MR, MRA, NECK, WITHOUT IV [id number] 09:32:00Reason for exam:->Ischemic Stroke EvaluationFINAL REPORT MRA Head CLINICAL HISTORY: Ischemic Stroke TECHNIQUE: MRA of the head utilizing 3-D zxbr-si-qifrai technique, with 3-D reconstructions. COMPARISON: None FINDINGS: There is no evidence of intracranial aneurysm, focal stenosis, or major branch vessel occlusion. IMPRESSION: No evidence for a major red devil of Mendes proximal branch vessel occlusion. MRA Neck CLINICAL HISTORY: Ischemic Stroke TECHNIQUE: MRA of the neck utilizing 2-D and 3-D qvtr-ro-tsmkuq technique, with 3-D reconstructions. COMPARISON: None FINDINGS: The carotid arteries in the neck are patent including their bifurcations. There is antegrade flow in the vertebral arteries in the neck. IMPRESSION: No evidence of hemodynamically significant stenosis in the cervical carotid or vertebral arteries by NASCET criteria. Signed: Santos Winn MDRkarenort Verified Date/Time: 08/21/2018 09:32:09 Reading Location: [address] Neuro Reading Room MR, BRAIN, WITHOUT [id number] 09:25:00Reason for exam:- >Ischemic Stroke EvaluationFINAL REPORT [...] Winn Verified Date/Time: 08/21/2018 09:25:25 Reading Location: [facility] C013V Neuro R ding Room POCT-GLUCOSE [id number] 21:26:00 Test Item Value Reference Range Interpretation Comments POC-GLUCOSE METER 119 mg/dL 70-110 H TESTED AT [place] [address] ([facility]) (test code = [facility] 1538) [address] POCT-GLUCOSE [id number] 18:03:00 Test Item Value Reference Range Interpretation Comments POC-GLUCOSE METER 119 mg/dL 70-110 H TESTED AT [place] [address] ([facility]) (test code = [facility] Miguel [facility] 1538) [address] POCT-GLUCOSE [id number] 12:39:00 Test Item Value Reference Range Interpretation Comments POC-GLUCOSE METER 120 mg/dL 70-110 H TESTED AT [place] [address] ([facility]) (test code = [facility] 1538) [address] RAD, CHEST, 1 VIEW, NON [id number] 12:04:00Reason for exam:->To Locate Heart Device (Pacemaker)Should [...] MDReport Verified Date/Time: 08/20/2018 12:04:06 Reading Location: [facility] Radiology Reading Room POCT-GLUCOSE [id number] 09:17:00 Test Item Value Reference Range Interpretation Comments POC-GLUCOSE METER 121 mg/dL 70-110 H TESTED AT [place] [address] ([facility]) (test code = [facility] 1538) [address] BASIC METABOLIC [id number] 06:56:00 Test Item Value Reference Range Interpretation [...] NOT APPLICABLE FOR DIALYSIS PATIEN TS. POCT-GLUCOSE [id number] 21:09:00 Test Item Value Reference Range Interpretation Comments POC-GLUCOSE METER 109 mg/dL 70-110 TESTED AT [place] [address] ([facility]) (test code = [facility] 1538) [address] POCT-GLUCOSE [id number] 17:15:00 Test Item Value Reference Range Interpretation Comments POC-GLUCOSE METER 117 mg/dL 70-110 H TESTED AT [place] [address] ([facility]) (test code = [facility] 1538) [address] VITAMIN B12 AND [id number] 06:39:00 Test Item Value Reference Range Interpretation Comments VITAMIN B12 (BEAKER) (test code = 524 pg/mL 213-215 014) FOLATE (BEAKER) (test code = 362) 13.5 ng/mL >=7.0 BASIC METABOLIC [id number] 05:48:00 Test Item Value Reference Range Interpretation [...] S NOT APPLICABLE FOR DIALYSIS PATIEN TS. [id number] 15:42:00 Test Item Value Reference Range Interpretation Comments RPR SCREEN (BEAKER) (test code = Nonreactive Nonreactive 420) HEMOGLOBIN [id number] 09:14:00 Test Item Value Reference Range Interpretation Comments HEMOGLOBIN A1C (BEAKER) (test code = 5.3 % 4.3-6.1 368) TSH/FREE T4 IF [id number] 04:49:00 Test Item Value Reference Range Interpretation Comments THYROID STIMULATING HORMONE 3.18 uIU/mL 0.35-4.94 (BEAKER) (test code = 772) BASIC METABOLIC [id number] 04:38:00 Test Item Value Reference Range Interpretation [...] NOT APPLICABLE FOR DIALYSIS PATIEN TS. LIPID [id number] 04:38:00 Test Item Value Reference Range Interpretation [...] 130-159 High 160-189 Very High >=190HEPATIC FUNCTION [id number] 04:38:00 Test Item Value Reference Range Interpretation [...] (test code = 413) AFB Culture and [id number] 13:24:00Specimen/Source: Wound/PACEMAKERCollected: 09/05/2017 19:45 Status: Final Last Updated: 11/01/2017 13:24 UCD-Xxsix-Bmtmpyexjgzo (Final) (Final) 09/07/17 No acid fast bacill seen on direct smear Culture Result (Final) (Final) 11/01/17 No growth of AFB at six (6) weeksFungus Culture with [id number] 12:12:00 Specimen/Source: Wound/PACEMAKERCollected: 09/05/2017 19:45 Status: Final Last Updated: 10/22/2017 12:12 Fungal Smear Result (Final) (Final) 09/06/17 No yeast or hyphae seen Culture Result (Final) (Final) 10/22/17 No fungus isolated at 6 weeksCulture, Blood [id number] 08:23:00Specimen: BloodCollected: 09/04/2017 20:30 Status: Final Last Updated: 09/10/2017 08:23 Culture Result (Final) (Final) No Growth After 5 DaysCulture, Blood [id number] 08:23:00Specimen: BloodCollected: 09/04/2017 20:15 Status: Final Last Updated: 09/10/2017 08:23 Culture Result (Final) (Final) No Growth After 5 DaysCulture, Wound [id number] 08:52:00Specimen: WoundCollected: 09/05/2017 19:45 Status: Final Last Updated: 09/08/2017 08:52 Gram Stain (Final) (Final) 09/06/17 No organisms seen, Few WBC's Culture Result (Final) (Final) 09/08/17 Anaerobic culture:No anaerobes isolated at 3 days Isolate (Final) (Final) 09/07/17Few Staph-coag positive Isolate Staph-coag positive JERMAINE (mcg/ml) Amoxicillin/Clav (AUG)<=4/2 Susceptible Ampicillin (AM) >8 Resistant Ampicillin/Sulb (A/S) <=8/4 Susceptible Cefazolin (CFZ) <=4 Susceptible Ceftriaxone (SANITATION DIRECTOR) <=4 Susceptible Chloramphenicol (C) <=8 Susceptible Ciprofloxacin (CP) <=1 Susceptible Clindamycin (CM) 0.5 Susceptible Erythromycin (E) <=0.25 Susceptible Gentamicin (GM) <=1 Susceptible Imipenem (IMP) <=4 Susceptible Levofloxacin (LEV) <=0.5 Susceptible Linezolid (LNZ) 4 Susceptible Oxacillin (OX1) 0.5 Susceptible Penicillin (P) >8 Resistant Rifampin (RA) <=1 Susceptible Tetracycline (TE) <=1 Susceptible Trimethoprim/Sulfa <=0.5/9.Susceptible (SXT) 5 Vancomycin (VA) 2 SusceptibleRenal [id number] 08:51:00 Test Item Value Reference Range Interpretation [...] National Kidney Foundation,http ://nkd ep.nih.gov CBC with [id number] 07:39:00 Test Item Value Reference Range Interpretation [...] code = ALYMPH) 1.7 K/cumm 0.5-4.6 N [place] Abs (test code = AMONO) 0.3 K/cumm 0.0-1.2 N Eos Abs (test code = AEOS) 0.29 K/cumm 0.00-0.74 N Baso Abs (test code = ABASO) 0.0 K/cumm 0.00-0.21 N Vancomycin, [id number] 12:33:00 Test Item Value Reference Range Interpretation Comments Vanco, Trou (test code = VANTR) 7.9 ug/mL 10.0-20.0 L Magnesium, [id number] 06:37:00 Test Item Value Reference Range Interpretation Comments Magnesium (test code = MG) 2.4 mg/dL 1.7-2.5 N Renal [id number] 06:29:00 Test Item Value Reference Range Interpretation [...] National Kidney Foundation,http :[email or web address] ep.nih.gov BHCG, Serum, [id number] 06:26:00 Test Item Value Reference Range Interpretation Comments Preg Qual [Se] (test code = BSHCG) Negative Negative N CBC with [id number] 06:24:00 Test Item Value Reference Range Interpretation [...] code = ALYMPH) 1.6 K/cumm 0.5-4.6 N [place] Abs (test code = AMONO) 0.4 K/cumm 0.0-1.2 N Eos Abs (test code = AEOS) 0.18 K/cumm 0.00-0.74 N Baso Abs (test code = ABASO) 0.0 K/cumm 0.00-0.21 N XR CHEST 1 [id number] 16:29:55XR CHEST 1 VIEWLOCATION: [id number]: None.INDICATION: REVIEW PICC LINE PLACEMENTDISCUSSION:AP chest and [...] = TSH) 3.44 mIU/mL 0.270-4.200 N Lipid [id number] 05:47:00 Test Item Value Reference Range Interpretation Comments Cholesterol (test 160 mg/dL 0-200 N code = CHOL) Triglycerides (test 126 mg/dL 9-200 N code = TRIG) HDL (test code = 35 mg/dL 50-60 L HDL) Chol/HDL (test code 4.6 Ratio 0.0-4.4 H = CHOLPHDL) LDL, Calculated 100 0-130 N (NOTE)RISK O F HEART (test code = LDLC) DISEASEPu blished by Chinese Heart AssociationAnal yte Optim al Boderline Increased RiskC HOL <200 200-239 >240TRI G <150 150-199 >200HDL Male: >60 <40HDL Female: >60 <50 LDL < 100 130-15 9 >160 LDL NEAR OPTIMAL IS 100- 129 VLDL (test code = 25 mg/dL 5-40 N VLDL) LDL/HDL (test code = 3 LDLPHDL) Basic Metabolic [id number] 05:47:00 Test Item Value Reference Range Interpretation [...] the National Kidney Foundation,http ://nkd ep.nih.gov Magnesium, [id number] 05:47:00 Test Item Value Reference Range Interpretation Comments Magnesium (test code = MG) 2.3 mg/dL 1.7-2.5 N CBC with [id number] 05:36:00 Test Item Value Reference Range Interpretation [...] code = ALYMPH) 2.2 K/cumm 0.5-4.6 N [place] Abs (test code = AMONO) 0.3 K/cumm 0.0-1.2 N Eos Abs (test code = AEOS) 0.24 K/cumm 0.00-0.74 N Baso Abs (test code = ABASO) 0.0 K/cumm 0.00-0.21 N Partial Thromboplastin [id number] 21:26:00 Test Item Value Reference Range Interpretation Comments aPTT (test code = PTT) 29.00 seconds 24.39-37.25 N Prothrombin [id number] 21:26:00 Test Item Value Reference Range Interpretation Comments PT (test code = PT) 10.70 seconds 9.78-13.35 N INR (test code = INR) 0.95 Ratio 0.6-1.2 N Comprehensive Metabolic [id number] 21:23:00 Test Item Value Reference Range Interpretation [...] National Kidney Foundation,http :[email or web address] ep.nih.gov CBC with Amjnmnlzeqgz0489-18-08 21:16:00 Test Item Value Reference Range Interpretation [...] code = ALYMPH) 2.2 K/cumm 0.5-4.6 N [place] Abs (test code = AMONO) 0.4 K/cumm 0.0-1.2 N Eos Abs (test code = AEOS) 0.17 K/cumm 0.00-0.74 N Baso Abs (test code = ABASO) 0.1 K/cumm 0.00-0.21 N
--- NOTE | 2022-01-02 23:08 | ER ---
Nurse's Notes [facility] Name: Jenni Draper Age: 41 yrs Sex: Female : 1980 Arrival Date: 01/02/2022 Time: 21:08 Bed Waiting Private MD: Diagnosis: Presentation: 01/02 21:22 Chief complaint: Patient states: Chest pain, shortness of breath, "I feel like I'm lp1 going to pass out"; Reports began about 1999; Reports appt with mri specialist tomorrow. Coronavirus screen: At this time, the client does not indicate any symptoms associated with coronavirus-19. Ebola Screen: No symptoms or risks identified at this time. Risk Assessment: Do you want to hurt yourself or someone else? Patient reports no desire to harm self or others. Onset of symptoms was January 02, 2022. 21:22 Method Of Arrival: Wheelchair lp1 21:22 Acuity: LYUBOV 3 lp1 21:26 Initial Sepsis Screen: Does the patient meet any 2 criteria? No. Patient's initial lp1 sepsis screen is negative. Does the patient have a suspected source of infection? No. Patient's initial sepsis screen is negative. RN EMERGENCY ROOM: 21:26 LMP N/A - Hysterectomy lp1 Historical: - Allergies: 21:23 Adhesives; lp1 21:23 Aspirin; lp1 21:23 Bactrim; lp1 21:23 Benadryl; lp1 21:23 Cipro IV; lp1 21:23 Clindamycin; lp1 21:23 coconut oil; lp1 21:23 Detrol; lp1 21:23 Diltiazem; lp1 21:23 Doxycycline; lp1 21:23 FISH PRODUCT DERIVATIVES; lp1 21:23 GABAPENTIN; lp1 21:23 Iodine; lp1 21:23 ivabradine; lp1 21:23 Latex, Natural Rubber; lp1 21:23 Morphine; lp1 21:23 PENICILLINS; lp1 21:23 tramadol; lp1 - Home Meds: 21:23 albuterol sulfate 2.5 mg /3 mL (0.083 %) Inhl nebu 3 mL 3 times per day [Active]; lp1 carvedilol 25 mg Oral tab 1 tab 2 times per day [Active]; Crestor 5 mg Oral tab 1 tab once daily [Active]; digoxin 125 mcg (0.125 mg) Oral tab 1 tab once daily [Active]; Keppra 750 mg Oral tab 1 tab [Active]; Lasix 20 mg Oral tab 1 tab [Active]; Nexium 20 mg Oral cpDR 1 cap once daily [Active]; pregabalin 50 mg Oral cap 1 cap 3 times per day [Active]; Ubrelvy 100 mg Oral tab 1 tab [Active]; venlafaxine 150 mg Oral cp24 1 cap once daily [Active]; Vraylar 4.5 mg oral cap once daily [Active]; Xanax 0.25 mg Oral tab 1 tab [Active]; Breo Ellipta inhalation [Active]; Spiriva with HandiHaler inhalation [Active]; BuSpar Oral [Active]; - PMHx: 21:23 Asthma; Atrial fibrillation; CVA; Depression; DVT; Hypertensive disorder; Migraine; lp1 Seizure; TIA; - PSHx: 21:23 Cholecystectomy; left shoulder; Ligation of fallopian tube; pace maker placement; right lp1 hand cyst removal; - Immunization history:: Adult Immunizations up to date. - Social history:: Smoking status: Patient denies any tobacco usage or history of. Assessment: 21:40 Reassessment: Called for patient to perform EKG, patient cannot be found in ER lobby. lp1 Vital Signs: 21:26 BP 111 / 87; Pulse 99; Resp 18; Temp 98.2(TE); Pulse Ox 98% on R/A; Weight 56.7 kg (R); lp1 Height 4 ft. 11 in. (149.86 cm); Pain 9/10; 21:26 Body Mass Index 25.25 (56.70 kg, 149.86 cm) lp1 ED Course: 21:08 Patient arrived in ED. [id number] 21:23 Triage completed. lp1 21:23 Arm band placed on right wrist. lp1 22:00 Patient's name was called from ER lobby. No response. lp1 22:15 Patient's name was called from ER lobby. Unable to locate patient. Will disposition as lp1 left without being seen by a provider. Administered Medications: No medications were administered Outcome: 23:07 Patient left the ED. lp1 Signatures: Mayi Rodriguez RN RN lp1 Leny [id number] Corrections: (The following items were deleted from the chart) Home Meds: apixaban 5 mg Oral tab 1 tab 2 times per day; lp1 lp1 Home Meds: nitroglycerin 0.4 mg Oral; lp1 lp1
[2022-01-03 02:56] VITALS: BP 111/87; TEMP 98.2; O2SAT 98
== END 2022-01-02 23:07 | disposition left against medical advice (07) ==
LOC: ER 21:05
DX: Z53.21 Procedure and treatment not carried out due to patient leaving prior to being seen by health care provider (principal)
CPT/HCPCS: 99281

== ENCOUNTER 2022-03-03 00:13 | Emergency (ER) | payer OTHER ==
--- OUTSIDE RECORDS SUMMARY | 2022-03-03 00:23 | XMS REPORT | Continuity of Care Document ---
:1980 Author Organization [facility] t Address [address] [place] [address] Care Team Providers Name Role Phone MIMA VELAZQUEZ Primary Care Physician Unavailable ZAKIA VERA Attending Clinician Unavailable Shauna Boone Attending Clinician Unavailable AMOS Attending Clinician Unavailable Malena VEGA Attending Clinician Doctor Unassigned, Name Attending Clinician Unavailable Main Bailey MD Attending Clinician Omari RALPH Attending Clinician Unavailable Main Alvarez MD. Attending Clinician Andrea Bolanos MD Attending Clinician Sho LARSEN Attending Clinician Zakia Vera MD Attending Clinician Unavailable LEONOR Attending Clinician Unavailable LINETTE Attending Clinician Unavailable ZAKIA VERA Admitting Clinician Unavailable SHO Admitting Clinician Unavailable LEONOR Admitting Clinician Unavailable LINETTE Admitting Clinician Unavailable Payers Payer Name Policy Type Policy Number Effective Expiration Source Date Date GENERIC MEDICAID HMO [id number] 2011 00:00:00 [facility] [id number] 2011 MEDICAID 00:00:00 [facility] [id number] 2011 Met panda STAR+PLUS 00:00[facility]00 [id number] PresentO SOLORIO [id number] 2018 [facility] MEDICAIDMEDICAID 00:00:00 Medical [id number] 018-Present Problems Condition Condition Condition Status Onset Resolution Last Treating Co mments Source Name Details Category Date Date Treatment Clinician Date History of History of Disease Active U nivers DVT (deep DVT (deep 4-11 ity of vein vein 00:00: [place] thrombosis thrombosis 00 Fl dical ) ) Branch Palpitatio Palpitatio Disease Active U nivers ns ns 4-11 ity of 00:00: [place] 00 Medical [facility] Elevated Elevated Disease Active Unive rs d-dimer d-dimer 7- ity of 00:00: [place] 00 Medical [facility] Left-sided Left-sided Disease Active [facility] weakness weakness 02[facility]12 [facility] Received Received Disease [facility] plasminoge plasminoge 00:00: Fl dical n n 00 Center activator activator (t-PA) (t-PA) less than less than 24 hours 24 hours prior to prior to arrival arrival Acute Acute Disease Active 2021-[address] [facility] ischemic ischemic 5-20 [facility] stroke stroke 00:00: Medical 00 [place] Chest pain Chest pain Disease Active [facility] in adult in adult 4-20 [facility] 00:00: Medical 00 [place] Atypical Atypical Disease Active Unive rs chest pain chest pain 4-20 it y of 00:00: [place] 00 Medical [facility] Inappropri Inappropri Disease Active 2020 U nivers ate sinus ate sinus 1-04 ity of tachycardi tachycardi [place] [facility] [place] Functional Functional Disease Active 2019- U nivers neurologic neurologic 8-18 it y of al symptom al symptom [place] disorder disorder 00 Medica l with with Branch weakness weakness or or paralysis paralysis Syncope Syncope Disease Active 2019- Univers 2-04 ity of 00:00: [place] 00 [facility] PVT PVT Disease Active Univers (paroxysma (paroxysma 2-04 it y of l l 00:00: [place] ventricula ventricula 00 Me dical r r Branch tachycardi tachycardi a) a) Digoxin Digoxin Disease Active Univers toxicity toxicity 2-04 ity of 00:00: [place] 00 [facility] Atrial Atrial Disease Active Univers fibrillati fibrillati 2-04 it y of on on 00:00: [place] [facility] Branch Seizure Seizure Disease Active 2019 Univers disorder disorder 2-01 ity of 00:00: [place] 00 [facility] AN AN Disease Active 2019 Univers (dyspnea (dyspnea 2-01 ity of on on 00:00: [place] exertion) exertion) 00 [facility] Mitral Mitral Disease Active 2019 Univers valve valve 8-05 ity of regurgitat regurgitat 00:[place] [facility] Excessive Excessive Disease Active 2019 Uni vers anticoagul anticoagul 8-05 it y of ation ation 00:00: [place] 00 [facility] Branch Deep vein Deep vein Disease Active 2019 Uni vers thrombosis thrombosis 8-05 it y of of lower of lower 00:00: [place] extremity extremity 00 [facility] Anxiety Anxiety Disease Active 2019- Univers disorder disorder 8-05 ity of 00:00: [place] 00 [facility] Branch Asthma Asthma Disease Active 2019- Univers 8-05 ity of 00:00: [place] 00 [facility] Branch E44.0 E44.0 Disease Active 2019-0 Univers Moderate Moderate 5-15 ity of protein protein 00:00: [place] calorie calorie 00 Medical malnutriti malnutriti Br anch on on Paresthesi Paresthesi Disease Active 2017-[address] a of left a of left 10-17 [facility] arm and arm and 00:00: Medical leg leg 00 Center Dysphagia Dysphagia Disease Active 2017-09 Uni vers 09 ity of 00:00: [place] 00 [facility] Iron Iron Disease Active 2017-09 Overview: Univer s deficiency deficiency 0-19 Formattin ity of anemia, anemia, 00:00: g of this [place] unspecifie unspecifie 00 note Me dical d iron d iron might be Branch deficiency deficiency different anemia anemia from the type type original. Added automatic ally from request for surgery [id number] Abdominal Abdominal Disease Active 2017-09 Overview: Univers pain, pain, 0-19 Formattin ity of unspecifie unspecifie 00:00: g of this [place] d d 00 note Medical abdominal abdominal might be Br anch location location different from the original. Added automatic ally from request for surgery [id number] Nausea and Nausea and Disease Active 2017-09 Overview : Univers vomiting, vomiting, 0-19 Formattin i ty of intractabi intractabi 00:00: g of this [place] lity of lity of 00 note Medical vomiting vomiting might be Bran ch not not different specified, specified, from the unspecifie unspecifie original. d vomiting d vomiting Added type type automatic ally from request for surgery [id number] Non-cardia Non-cardia Disease Active U jayden c chest c chest 04-27 ity of pain pain 00:00: [place] 00 Medical Branch Essential Essential Disease Active Uni vers hypertensi hypertensi 8 it y of on on 00:00: [place] 00 Medical [facility] Pacemaker Pacemaker Disease Active [...] Medical Branch Tachycardi Tachycardi Disease Active U nivers a, a, 9-28 ity of unspecifie unspecifie 00:[place] 00 [facility] Elevated Elevated Disease Active 2013-09 Unive rs liver liver 0-29 ity of enzymes enzymes 00:00: [place] [facility] Pseudoseiz Pseudoseiz Disease Active U nivsharath ure ure 7-22 ity of 00:00: Medical [...] different from the original. ICD10 Diagnosis Term Web Production Manager Utility Hypoglycem Hypoglycem Disease Active 2012-09 Overview : Univers ia ia 10-21 Formattin ity of 00:00: g of this [place] note Medical might be Branch different from the original. ICD10 Diagnosis Term Web Production Manager Utility Cerebrovas Cerebrovas Disease Resolve 2021-02-12 2021-02-[address] cular cular d 00:00:00 11:42:08 [facility] accident accident Medica l (CVA), (CVA), Center unspecifie unspecifie d d mechanism mechanism Allergies, Adverse Reactions, Alerts Allergy Allergy Status Severity Reaction(s) Onset Inactive Treating Comm ents Source Name Type Date Date Clinician HYDROCOD DRUG Active Hives Univers ONE INGREDI 9-10 ity of 00:00: [place] 00 Medical Branch Hydrocod Propensi Active Hives Univer s one ty to 9-10 ity of adverse 00:00: [place] reaction 00 Medical s Branch Penicill DA Active SV [facility] ins 1-04 [place] 00:[facility]: d [facility] Sulfa DA Active MO [facility] (Sulfona 1-04 [place] mide 00:00: d Antibiot 00 Medical ics) Center Fish FA Active SV [facility] Containi 1-04 [place] ng 00:00: d Products 00 Medical Center iodine DA Active MO 1-0 [facility] 1-04 [place] 00:00: d 00 [facility] morphine DA Active SV 1-0 [facility] 1-04 [place] 00:00: d 00 [facility] aspirin DA Active SV 2021-0 [facility] 1-04 [place] 00:00: d 00 [facility] cephalex DA Active SV 1-0 [facility] in 1-04 [place] 00:00: d 00 [facility] cefixime DA Active MO 1-0 [facility] 1-04 [place] 00:00: d 00 [facility] Center doxycycl DA Active SV 2020-0 [facility] ine 1-04 [place] 00:00: d 00 [facility] clindamy DA Active MO 1-0 [facility] stephan 1-04 [place] 00:00: d 00 [facility] Center sulfamet DA Active MO 2020-0 [facility] hoxazole -04 [place] 00:00: d 00 [facility] Center trimetho DA Active MO 1-0 [facility] prim 1-04 [place] 00:00: d 00 [facility] Center ciproflo DA Active SV 2020-0 [facility] xacin 1-04 [place] 00:00: d 00 Medical Center adhesive DA Active SV 2020-0 [facility] tape 1-04 [place] 00:00: d 00 [facility] Center tramadol DA Active SV 1-0 [facility] 1-04 [place] 00:00: d 00 [facility] Center gabapent DA Active SV 1-0 [facility] in 1-04 [place] 00:00: d 00 [facility] Center diltiaze DA Active SV 1-0 [facility] m 1-04 [place] 00:00: d 00 [facility] diphenhy DA Active SV 2020-0 [facility] dramine 1-04 [place] 00:00: d 00 [facility] topirama DA Active SV 1-0 [facility] te 1-04 [place] 00:00: d 00 [facility] Center levoflox DA Active SV 1-0 [facility] acin 1-04 [place] 00:00: d 00 [facility] quetiapi DA Active MO 2021-0 [facility] ne 1-04 [place] 00:00: d 00 [facility] tolterod DA Active MO 2021-0 [facility] ine 1-04 [place] 00:00: d 00 [facility] Center latex DA Active SV 2021-0 [facility] 1-04 [place] 00:00: d 00 [facility] ivabradi DA Active MO 2021-0 [facility] ne 1-04 [place] 00:00: d 00 [facility] Center coconut FA Active MO 2020-0 [facility] 1-04 [place] 00:00: d 00 [facility] Center Penicill DA Active SV ANAPHYLAXIS 2020-0 [facility] ins SHOCH 1-04 [place] 00:00: d 00 Medical Center Sulfa DA Active MO RASH 2020-0 [facility] (Sulfona 1-04 [place] mide 00:00: d Antibiot 00 Medical [facility]) Center Fish FA Active SV ANAPHYLAXIS 2020-0 [facility] Containi SHOCK -04 [place] ng 00:00: d Products 00 Medical Center iodine DA Active MO RASH 2020-0 [facility] 1-04 [place] 00:00: d 00 Medical Center morphine DA Active SV ANAPHYLAXIS 2020-0 [facility] SHOCK -04 [place] 00:00: d 00 Medical Center aspirin DA Active SV ANAPHYLAXIS 2020-0 [facility] SHOCK - [place] 00:00: d 00 Medical Center cephalex DA Active SV HIVES 2020-0 [facility] in 1-04 [place] 00:00: d 00 Medical Center cefixime DA Active MO HIVES 2020-0 [facility] 1-04 [place] 00:00: d 00 Medical Center doxycycl DA Active SV RASH 2020-0 [facility] ine 1-04 [place] 00:00: d 00 [facility] Center clindamy DA Active MO RASH 2020-0 [facility] stephan 1-04 [place] 00:00: d 00 [facility] Center sulfamet DA Active MO RASH 2020-0 [facility] hoxazole 1-04 [place] 00:00: d 00 Medical Center trimetho DA Active MO RASH 2020-0 [facility] prim 1-04 [place] 00:00: d 00 Medical Center ciproflo DA Active SV HIVES 2020-0 [facility] xacin 1-04 [place] 00:00: d 00 Medical Center adhesive DA Active SV BLISTERS 2020-0 [facility] tape 1-04 [place] 00:00: d 00 Medical Center tramadol DA Active SV HIVES 1-0 [facility] 1-04 [place] 00:00: d 00 Medical Center gabapent DA Active SV RASH 1-0 [facility] in 1-04 [place] 00:00: d 00 Medical Center diltiaze DA Active SV SHORTNESS OF 2020-0 HC A m BREATH 1-04 [place] 00:00: d 00 Medical Center diphenhy DA Active SV RASH 2020-0 [facility] dramine 1-04 [place] 00:00: d 00 Medical Center topirama DA Active SV HIVES/MEMORY HC A te LOSS 09-28 [place] 00:00: d 00 Medical Center levoflox DA Active SV HIVES [facility] acin 1- [place] 00:00: d 00 [facility] Center quetiapi DA Active MO RASH [facility] ne 1-04 [place] 00:00: d [facility] tolterod DA Active MO RASH [facility] ine -04 [place] 00:00: d 00 [facility] latex DA Active SV BLISTERS [facility] 1-04 [place] 00:00: d 00 [facility] ivabradi DA Active MO RASH [facility] ne -04 [place] 00:00: d 00 [facility] coconut FA Active MO RASH [facility] 1-04 [place] 00:00: d 00 [facility] Topirama Propensi Active Anaphylaxis 2019-0 M ethodi te ty to [facility] st adverse 00:00: Hospita reaction 00 l s to drug DILTIAZE DRUG Active SOB 2018-09 Univers M HCL INGREDI 0-01 ity of 00:00: [place] 00 Medical Branch IVABRADI DRUG Active Rash 2018-09 Univers NE INGREDI 0-01 ity of 00:00: [place] 00 Medical Branch Diltiaze Propensi Active Shortness of 2018-09 Univers m Hcl ty to Breath 0-01 ity of adverse 00:00: [place] reaction 00 Medical s Branch Ivabradi Propensi Active Rash 2018-09: Univ ers ne ty to 0-01 reports ity of adverse 00:00: passing [place] reaction 00 out after Medic al s taking Branch one dose of that medicine Ivabradi Propensi Active Rash 2018-09: Meth jamie ne ty to 0-[address] adverse 00:00: passing Hospita reaction 00 out after l s to taking drug one dose of that medicine DILTIAZE DRUG Active Med SOB Univers M INGREDI 9-05 ity of 00:00: [place] 00 Medical Branch Diltiaze Propensi Active Shortness of Univers m ty to Breath 9-05 ity of adverse 00:00: [place] reaction 00 Medical s Branch Diltiaze Propensi Active Shortness Of Methodi m ty to Breath 9-05 st adverse 00:00: Hospita reaction 00 l s to drug FISH Drug Active High Anaphylaxis 2019-0 Unive rs CONTAINI Class 8-05 ity of NG 00:00: [place] PRODUCTS 00 Medical Branch DOXYCYCL DRUG Active Rash 2019-0 Univers INE INGREDI 8-05 ity of 00:00: [place] 00 Medical Branch CEFIXIME DRUG Active Low Rash 2019-0 Univers INGREDI 8-05 ity of 00:00: [place] 00 Medical Branch Cefixime Propensi Active Rash 2019-0 Univer s ty to 05 ity of adverse 00:00: [place] reaction 00 Medical s Branch Doxycycl Propensi Active Rash 2019-0 Univer s ine ty to 05 ity of adverse 00:00: [place] reaction 00 Medical s Branch Fish Propensi Active Anaphylaxis 2019-0 Family Uni vers Containi ty to 05 [...] 00 SULFAMET Allergy Active High Anaphylaxis 2017-09 [facility] HOXAZOLE 10-17 -TRIMETH 00:00: OPRIM 00 GABAPENT Allergy Active High Sob 2017-09 [facility] IN 10-17 00:00: 00 IODINE Allergy Active High Rash 2017-09 [facility] AND 10-17 IODIDE 00:00: CONTAINI 00 NG PRODUCTS MORPHINE Allergy Active High Anaphylaxis 2017-09 [facility] 10-17 00:00: 00 PENICILL Allergy Active High Anaphylaxis 2017-09 [facility] INS 10-17 00:00: 00 DIPHENHY Allergy Active N\\T\\V 2017-09 SLE DRAMINE 10-17 HCL 00:00: 00 CIPROFLO Allergy Active 2017-09 SLE XACIN 10-17 00:00: 00 CODEINE Allergy Active 2017-09 [facility] 10-17 00:00: 00 Adhesive Propensi Active Rash 2017-09 Can use [facility] t Tape ty to 10-17 papertape [facility] adverse 00:00: . Medical reaction 00 Center s Sulfamet Propensi Active Anaphylaxis 2017-[address] hoxazole ty to 10-17 [facility] -Trimeth adverse 00:00: Medical oprim reaction 00 Center s Diphenhy Propensi Active Nausea And 2017-[address] dramine ty to Vomiting 10-17 Lu Hcl adverse 00:00: Medical reaction 00 Center s Ciproflo Propensi Active 2017-[address] xacin ty to 10-17 aches. [facility] adverse 00:00: Medical reaction 00 [facility] Clindamy Propensi Active Rash 2017-[address] stephan ty to 10-17 [facility] adverse 00:00: Medical reaction 00 [place] s Tolterod Propensi Active Rash 2017-[address] ine ty to 10-17 [facility] adverse 00:00: Medical reaction 00 [place] s Gabapent Propensi Active Shortness Of 2017-[address] in ty to Breath, Rash 10-17 Luke s adverse 00:00: Medical reaction 00 [place] s Iodine Propensi Active Rash 2017-[address] And ty to 10-17 [facility] Iodide adverse 00:00: Medical Containi reaction 00 [place] ng s Products Latex Propensi Active Rash 2017-[address] ty to 10-17 [facility] adverse 00:00: Medical reaction 00 [place] s Morphine Propensi Active Anaphylaxis 2017-[address] ty to 10-17 [facility] adverse 00:00: Medical reaction 00 [place] s Penicill Propensi Active Anaphylaxis 2017-[address] ins ty to 10-17 [facility] adverse 00:00: Medical reaction 00 [place] s Quetiapi Propensi Active 2017-[address] ne ty to 10-17 [facility] adverse 00:00: Medical reaction 00 Center s Sulfa Propensi Active Rash 2017-[address] (Sulfona ty to 10-17 [facility] mide adverse 00:00: Medical Antibiot reaction 00 [place] ics) s Cefixime Propensi Active Rash 2017-[address] ty to 10-17 [facility] adverse 00:00: Medical reaction 00 Center s Tramadol Propensi Active Rash 2017-[address] ty to 10-17 [facility] adverse 00:00: Medical reaction 00 Center s [...] (SULFONA 10-17 MIDE 00:00: ANTIBIOT 00 ICS) COCONUT DRUG Active Hives 2017-09 Univers INGREDI 1-10 ity of 00:00: [place] 00 Medical Branch SEAFOOD/ Food Active Rash 2017-09 Univers FISH 1-10 ity of 00:00: [place] 00 Medical Branch Coconut Propensi Active Rash 2017-09 Univers ty to 1-10 ity of adverse 00:00: [place] reaction 00 Medical s Branch Seafood/ Propensi Active Swelling 2017-09 Univ ers Fish ty to 1-10 ity of adverse 00:00: [place] reaction 00 Medical s Branch Coconut Propensi Active Rash 2017-09 Methodi ty to [address] adverse 00:00: Hospita reaction 00 l s to drug Coconut Propensi Active Rash 2017-09 Methodi Oil ty to 10 st adverse 00:00: Hospita reaction 00 l s to drug Other Propensi Active Swelling 2017-09 Family Method i ty to 10-[address] adverse 00:00: of Hospita reaction 00 allergic l s reaction. DIPHENHY DRUG Active Hives 2017- Univers DRAMINE INGREDI 4-12 ity of HCL 00:00: [place] 00 [facility] Branch CLINDAMY DRUG Active Rash 2017- Univers STEPHAN INGREDI 4-12 ity of 00:00: [place] 00 [facility] Branch GABAPENT DRUG Active Rash 2017- Univers IN INGREDI 4-12 ity of 00:00: [place] 00 Medical Branch IODINE DRUG Active Rash 2018-0 Univers INGREDI 4-12 ity of 00:00: [place] 00 Medical Branch Diphenhy Propensi Active Hives 2018-0 Univer s [...] 4-12 ity of adverse 00:00: [place] reaction Medical s Branch Clindamy Propensi Active Rash 2018-0 Method i stephan ty to 01-04 st adverse 00:00: Hospita reaction 00 l s to drug Diphenhy Propensi Active Other (See Me thodi dramine ty to Comments) 01-04 st adverse 00:00: Hospita reaction 00 l s to drug Gabapent Propensi [place] [address] Methodi in ty to Breath 01-04 st adverse 00:00: Hospita reaction 00 l s to drug Iodine Propensi Active Rash 2017-0 Methodi And ty to 12 st Iodide adverse 00:00: Hospita Containi reaction 00 l ng s to Products drug MORPHINE DRUG Active High Anaphylaxis 2017- Uni vers INGREDI 0-05 ity of 00:00: Medical Branch Morphine Propensi Active Anaphylaxis 2017- U nivers ty to 0-05 ity of adverse 00:00: [place] reaction 00 Medical s Branch Morphine Propensi Active Anaphylaxis 2017- M ethodi ty to 0-05 st adverse 00:00: Hospita reaction 00 l s to drug TRAMADOL DRUG Active Unknown-Cmnt 2017- Un [place]yn INGREDI 06-22 ity of 00:00: [place] 00 Medical Branch Tramadol Propensi Active Unknown - 2017 Rash Uni vers ty to See comments 06-22 ity of adverse 00:00: [place] reaction 00 Medical s Branch Tramadol Propensi Active Rash Rash Rash Met hodi ty to 06-22 st adverse 00:00: Hospita reaction 00 l s to drug CIPROFLO DRUG Active Other-Cmnt 2016 Univ ers XACIN INGREDI 04-20 ity of 00:00: [place] 00 Medical Branch QUETIAPI DRUG Active Rash 2015- Univers NE INGREDI 04-20 ity of FUMARATE 00:00: [place] 00 Medical Branch Ciproflo Propensi Active Other - See 0 Muscle U nivers xacin ty to comments 04-20 aches ity of adverse 00:00: [place] reaction Medical s Branch Quetiapi Propensi Active Rash 0 Univer s ne ty to 04-20 ity of Fumarate adverse 00:00: [place] reaction 00 Medical s Branch Quetiapi Propensi Active Rash confusion Met hodi ne ty to 04-20 st adverse 00:00: Hospita reaction 00 l s to drug ALUMINUM DRUG Active High Anaphylaxis Uni vers ASPIRIN INGREDI 01-18 ity of 00:00: [place] 00 Medical Branch PENICILL DRUG Active High Anaphylaxis Uni vers IN INGREDI 01-18 ity of 00:00: [place] 00 Medical Branch Aluminum Propensi Active Anaphylaxis 2016-0 U nivers Aspirin ty to 01-18 ity of adverse 00:00: [place] reaction 00 Medical s Branch Penicill Propensi Active Anaphylaxis 2016-0 U nivers in ty to 01-18 ity of adverse 00:00: [place] reaction 00 Medical s Branch ADHESIVE Drug Active Low Rash Univers Class 6- ity of 00:00: [place] 00 Medical Branch Adhesive Drug Active Rash Univers Allergy 6 ity of 00:00: [place] 00 Medical Branch Ciproflo Propensi Active Other (See 0 Muscle Me thodi xacin ty to Comments) 5-[address] adverse 00:00: le [facility]hes. [facility] a reaction 00 Muscle l s to aches drug ASPIRIN DRUG Active High Anaphylaxis Univ ers INGREDI - ity of 00:00: [place] 00 Medical Branch Aspirin Propensi Active Anaphylaxis 2013-0 Un [place] ty to 12-31 ity of adverse 00:00: [place] reaction 00 Medical s to Branch drug TOLTEROD DRUG Active Rash 2012-09 Univers INE INGREDI 10-20 ity of TARTRATE 00:00: [place] 00 Medical Branch LATEX DRUG Active Rash 2012-09 Univers INGREDI 10-20 ity of 00:00: [place] 00 Medical Branch PENICILL Drug Active Anaphylaxis 2012-09 Uni vers INS Class 1-26 ity of 00:00: [place] 00 Medical Branch [...] Date Stop Date Quantity Comments Source History [facility] History [facility] Exposure to 2022-02-152022-02-25 Not sure University SARS-CoV-2 (event) 00:00:00 11:25:00 [facility] Alcohol intake 2022-02-23 2022-02-23 Current University of 00:00:00 00:00:00 non-drinker of [facility] alcohol Branch (finding) Education 2021-03-25 2021-03-25 12 University of 00:00:00 00:00:00 [place] [facility] History SDNE 2019-10-29 2019-10-29 5 University o f Financial 00:00:00 00:00:00 [place] [facility] History [facility] Food 2019-10-29 2019-10-29 1 Univers ity of Worry 00:00:00 00:00:00 [place] [facility] History [facility] Food 2019-10-29 2019-10-29 1 Univers ity of Scarcity 00:00:00 00:00:00 [place] [facility] History SDNE 2019-10-29 2019-10-29 2 University o f Transport Med 00:00:00 00:00:00 [place] Medic al Branch History [facility] 2019-10-29 2019-10-29 2 University o f Transport Non-Med 00:00:00 00:00:00 [facility] edical Branch History [facility] 2018-09-05 2018-09-05 1 [facility] Alcohol Frequency 00:00:00 00:00:00 Hospita l Cigarettes smoked 2018-04-27 2018-04-27 Univers ity of current (pack per 00:00[facility]00 [facility]00[facility] Branch Cigarette 2018-04-27 2018-04-27 University of pack-years 00:00:00 00:00:00 [facility] Tobacco use and 2018-04-27 2018-04-27 Never used Universit y of exposure 00:00:00 00:00:00 [facility] Tobacco Comment 2018-04-27 2018-04-27 quit 16 years Univer sity of 00:00:00 00:00:00 ago [facility] History of tobacco 2003-05-09 Smoker Univer sity of use 00:00:00 [facility] Sex Ass[birth year] At [birth year] Universit y of 00:00:00 00:00:00 [facility] Smoking Status Start Date Stop Date Source Former smoker 2018-04-27 00:00:00 2018-04-27 00:00:00 [facility] Medical Branch Medications Ordered Filled Start Stop Current Ordering Indication Dosage Frequency Signature Comments Components Source Medication Medication Date Date Medication? Clinician (SIG) Name Name ALPRAZolam Yes [id number] .25mg Take 0.25 Univers (XANAX) 6-03 mg by ity of 0.25 mg 11:30: mouth at [place] tablet 33 bedtime as Medical needed. Branch pregabalin Yes 50mg Take 50 mg U nivers (LYRICA) 50 6-03 by mouth ity of mg capsule 11:30: at [place] [address] bedtime. Medical Branch esomeprazol Yes 20mg Take 20 mg Univers e (NEXIUM) 6-03 by mouth 2 ity of 20 mg 11:30: (two) [place] capsule 33 times Medical daily Branch before breakfast and dinner. ALPRAZolam Yes [id number] .25mg Take 0.25 Univers (XANAX) 6-03 mg by ity of 0.25 mg 11:30: mouth at [place] tablet 33 bedtime as Medical needed. Branch pregabalin Yes 50mg Take 50 mg U nivers (LYRICA) 50 6-03 by mouth ity of mg capsule 11:30: at [place] [address] bedtime. Medical Branch esomeprazol Yes 20mg Take 20 mg Univers e (NEXIUM) 6-03 by mouth 2 ity of 20 mg 11:30: (two) [place] capsule 33 times Medical daily Branch before breakfast and dinner. ALPRAZolam Yes [id number] .25mg Take 0.25 Univers (XANAX) 6-03 mg by ity of 0.25 mg 11:30: mouth at [place] tablet 33 bedtime as Medical needed. Branch pregabalin Yes 50mg Take 50 mg U nivers (LYRICA) 50 6-03 by mouth ity of mg capsule 11:30: at [place] [address] bedtime. Medical Branch esomeprazol Yes 20mg Take 20 mg Univers e (NEXIUM) 6-03 by mouth 2 ity of 20 mg 11:30: (two) [place] capsule 33 times Medical daily Branch before breakfast and dinner. fluticasone Yes [id number] 1{puff} Inhale 1 Univers furoate-natan 6-03 Puff ity of anteroL 00:00: daily. [place] (BREO 00 Medical ELLIPTA) Branch 200-25 mcg/dose DsDv tiotropium Yes [id number] 1{puff} Inhale 1 Univers bromide 6-03 Puff ity of (SPIRIVA 00:00: daily. [place] RESPIMAT) 00 Medical 2.5 Branch mcg/actuati on Mist levETIRAcet Yes [id number] 750mg Take 1 Univers am 750 mg 6-03 tablet by ity o f tablet 00:00: mouth [place] 00 every Medical morning. Branch levETIRAcet Yes 1000mg Take 1 Un austyn am (KEPPRA) 6-03 tablet by ity of 1,000 mg 00:00: mouth at [place] tablet 00 bedtime. Medical Branch cariprazine Yes Take 1 Univ ers (VRAYLAR) 6-03 TAB-CAP/M2 ity of 4.5 mg Cap 00:00: by mouth [place] as 00 at Medical bedtime. Branch DULoxetine Yes 30mg Take 1 Unive rs (CYMBALTA) 6-03 capsule by ity of 30 mg 00:00: mouth [place] capsule 00 daily. Medical Branch traZODone Yes 50mg Take 1-2 Univ ers 50 mg 6-03 tablets by ity of tablet 00:00: mouth at [place] 00 bedtime as Medical needed for Branch Insomnia. azithromyci Yes [id number] 250mg Take 1 Univers n 250 mg 6-03 tablet by ity of tablet 00:00: mouth [place] 00 daily. Medical Branch roflumilast Yes [id number] 250ug Take 250 Univers (DALIRESP) 6-03 mcg by ity of 250 mcg Tab 00:00: mouth [place] 00 daily. Medical Branch predniSONE 2021-0 2021- Yes [id number] 40mg Take 2 Univers 20 mg 6-03 06-09 tablets by ity of tablet 00:00: 04:59 mouth [place] 00 :00 daily for Medical 5 days. Branch carvediloL 0 Yes [id number] 25mg Take 1 U nivers 25 mg 6-01 tablet by ity of tablet 00:00: mouth [place] (two) Medical times Branch daily with meals. carvediloL 2021-0 Yes [id number] 25mg Take 1 U nivers 25 mg 6-01 tablet by ity of tablet 00:00: mouth [place] (two) Medical times Branch daily with meals. carvediloL 0 Yes [id number] 25mg Take 1 U nivers 25 mg 6-01 tablet by ity of tablet 00:00: mouth [place] (two) Medical times Branch daily with meals. levETIRAcet 2021- No [id number] 750mg Take 1 Univers am 750 mg 3-24 - tablet by ity of tablet 00:00: 00:[address] [place] [address] 00 :00 (two) Medical times Branch daily. tiotropium 2021- No [id number] 1{puff} Inhale 1 [facility] bromide 3-14 06-03 Puff ity of (SPIRIVA 00:00: 00:00 daily. [place] RESPIMAT) 00 :00 Medical 2.5 Branch mcg/actuati on Mist BENZONATATE 0 Yes [id number] TAKE 1 Univers 100 mg 3-04 CAPSULE BY ity of capsule 00:00: MOUTH [place] [address] THREE Medical TIMES Branch DAILY NEEDED FOR COUGH BENZONATATE 0 Yes [id number] TAKE 1 Univers 100 mg 3-04 CAPSULE BY ity of capsule 00:00: MOUTH [place] [address] THREE Medical TIMES Branch DAILY NEEDED FOR COUGH BENZONATATE 0 Yes [id number] TAKE 1 Univers 100 mg 3-04 CAPSULE BY ity of capsule 00:00: MOUTH [place] [address] THREE Medical TIMES Branch DAILY NEEDED FOR COUGH chlorphenir 0 2021- No [id number] 4mg Take 1 Univers amine 4 mg 09-29-03 tablet by ity of tablet 00:00: 00:00 mouth [place] 00 :00 every 6 Medical (six) Branch hours as needed for Allergies or Runny nose. calcium/mag 0 2021- No [id number] 1{each} Take 1 [facility] nesium/zinc 1-05 06-03 Each by ity of (CALCIUM-MA 00:00: 00:00 [place] GNESUIUM-ZI 00 :00 daily. Medica l MS) Branch 333-133-5 mg Tab benzonatate 2021- No [id number] 100mg Take 1 Univers 100 mg 09-29 capsule by ity of capsule 00:00: 00:00 mouth 3 [place] 00 :00 (three) Medical times Branch daily as needed [...] 00 daily. Medical Branch albuterol 2020-09 Yes [id number] 1.25mg Inhale 1.5 Univers 2.5 mg /3 1-11 mL every 4 ity of mL (0.083 00:00: (four) [place] %) 00 hours. Medical nebulizer Branch solution albuterol 2020-09 Yes [id number] 1.25mg Inhale 1.5 Univers 2.5 mg /3 1-11 mL every 4 ity of mL (0.083 00:00: (four) [place] %) 00 hours. Medical nebulizer Branch solution albuterol 2020-09 Yes [id number] 1.25mg Inhale 1.5 Univers 2.5 mg /3 1-11 mL every 4 ity of mL (0.083 00:00: (four) [place] %) 00 hours. Medical nebulizer Branch solution albuterol 2020-09 Yes [id number] 2{puff} Inhale 2 Univers 90 1-05 Puffs ity of mcg/actuati 00:00: every 6 [place] as on inhaler 00 (six) Medical hours as Branch needed for Wheezing or Shortness of Breath. albuterol 2020-09 Yes [id number] 2{puff} Inhale 2 Univers 90 1-05 Puffs ity of mcg/actuati 00:00: every 6 [place] as on inhaler 00 (six) Medical hours as Branch needed for Wheezing or Shortness of Breath. albuterol 2020-09 Yes [id number] 2{puff} Inhale 2 Univers 90 1-05 Puffs ity of mcg/actuati 00:00: every 6 [place] as on inhaler 00 (six) Medical hours as Branch needed for Wheezing or Shortness of Breath. ubrogepant 2020-09 Yes [id number] 100mg Take 100 Univers (UBRELVY) 0-19 mg by ity of 100 mg Tab 00:00: mouth as [place] as 00 needed Medical (migraine) Branch . Take at onset of migraine, repeat x1 in 2h if headache remains ubrogepant 2020-09 Yes [id number] 100mg Take 100 Univers (UBRELVY) 0-19 mg by ity of 100 mg Tab 00:00: mouth as [place] as 00 needed Medical (migraine) Branch . Take at onset of migraine, repeat x1 in 2h if headache remains ubrogepant 2020-09 Yes [id number] 100mg Take 100 Univers (UBRELVY) 0-19 mg by ity of 100 mg Tab 00:00: mouth as [place] as 00 needed Medical (migraine) Branch . Take at onset of migraine, repeat x1 in 2h if headache remains nitroglycer 2020-[id number] 1 Univers in 0.4 mg 0-10 tablet ity of sublingual 00:00: under the [place] tablet 00 tongue Medical every 5 Branch (five) minutes as needed for Chest pain. nitroglycer 2020-[id number] 1 Univers in 0.4 mg 0-10 tablet ity of sublingual 00:00: under the [place] tablet 00 tongue Medical every 5 Branch (five) minutes as needed for Chest pain. nitroglycer 2020-[id number] 1 Univers in 0.4 mg 0-10 tablet ity of sublingual 00:00: under the [place] tablet 00 tongue Medical every 5 Branch (five) minutes as needed for Chest pain. VRAYLAR 3 2021- No 1{capsu Take 1 Un austyn mg Cap 05-19} capsule by ity of 00:00: 00:00 mouth at [place] 00 :00 bedtime. Medical Takes Branch 4.5mg at night albuterol Yes [id number] 2.5mg Inhale 3 Univers 2.5 mg /3 8-05 mL every 6 ity of mL (0.083 00:00: (six) [place] %) 00 hours as Medical nebulizer needed for Bran ch solution Wheezing or Shortness of Breath. albuterol Yes [id number] 2.5mg Inhale 3 Univers 2.5 mg /3 8-05 mL every 6 ity of mL (0.083 00:00: (six) [place] %) 00 hours as Medical nebulizer needed for Bran ch solution Wheezing or Shortness of Breath. albuterol Yes [id number] 2.5mg Inhale 3 Univers 2.5 mg /3 8-05 mL every 6 ity of mL (0.083 00:00: (six) [place] %) 00 hours as Medical nebulizer needed for Bran ch solution Wheezing or Shortness of Breath. apixaban Yes 5mg Take 1 Univers (ELIQUIS) 5 7-14 tablet by ity of mg tablet 00:00: mouth 2 [place] 00 (two) Medical times Branch daily. Indication s: Recurrent DVT apixaban Yes 5mg Take 1 Univers (ELIQUIS) 5 7-14 tablet by ity of mg tablet 00:00: mouth 2 [place] (two) Medical times Branch daily. Indication s: Recurrent DVT apixaban Yes 5mg Take 1 Univers (ELIQUIS) 5 7-14 tablet by ity of mg tablet 00:00: mouth 2 [place] (two) Medical times Branch daily. Indication s: [...] Take 5 mg M ethodi n (CRESTOR) [address] 5 mg tablet 22:52: [facility]. [facility] 44 l cycloSPORIN Yes 1[drp] Q.5D 1 drop 2 Methodi E 6-24 (two) st (RESTASIS) 22:52: times a [facility] 0.05 % 44 day. l ophthalmic emulsion albuterol Yes 1{ampul Q.[id number] Take 1 Methodi (ACCUNEB) 6-24 e} [id number] ampule by st 1.25 mg/3 22:52: 3D nebulizati [facility] mL 44 on 3 l nebulizer (three) solution times a day. esomeprazol 2020- No 20mg QD Take 20 mg Methodi e (NexIUM) -18 03-[address] 20 MG 20:19: 00:00 daily [facility]osp[facility] capsule 48 :00 before l breakfast. ARIPiprazol 2020- No 5mg QD Take 5 mg Methodi e (ABILIFY) 03-18- by mouth st 5 MG tablet 01:39: 00:00 daily. [facility] 34 :00 l ARIPiprazol 2020- No 10mg QD Take 10 mg Methodi e (ABILIFY) 03-18- by mouth st 10 MG 01:39: 00:00 [...] QD Take 1 Met hodi e (NexIUM) 6-24 07-[address] 40 MG 00:00: 04:59 [...] vomiting for up to 3 days. fluticasone 2021- No [id number] 1{puff} Inhale 1 Univers furoate-natan 02-24 06-03 Puff ity of anteroL 00:00: 00:00 daily. [place] (BREO 00 :00 Medical ELLIPTA) Branch 200-25 mcg/dose DsDv ALPRAZolam Yes .25mg Take 0.[address] (XANAX) 5-21 mg by [facility] 0.25 MG 14:04: mouth Medical tablet 46 daily as Center needed for Anxiety. busPIRone Yes 15mg Q.5D Take [address] (BUSPAR) 15 5-21 by mouth 2 Jeanie kes MG tablet 14:04: (two) Medical 46 times Center daily. digoxin Yes 125ug QD Take [facility] (LANOXIN[facility] 5-21 mcg [facility] 0.125 MG 14:04: mouth Medical tablet 46 daily. [place] venlafaxine Yes 150mg QD Take [address] (EFFEXOR-XR 5-21 mg by [facility] ) 150 MG 24 14:04: mouth Medic al hr capsule 46 daily. [place] apixaban Yes 5mg QD Take [address] [facility] (ELIQUIS) 5 5-21 by mouth [facility] mg Tab 14:04: daily. Medical tablet 46 Center levETIRAcet Yes 1000mg Q.5D Take 1,[address] [facility] am (KEPPRA) 5-21 mg by [facility] 1000 MG 14:04: mouth 2 Medical tablet 46 (two) Center times daily. loratadine Yes 10mg QD Take [address] (CLARITIN) 5-21 by mouth [facility] 10 mg 14:04: daily. Medical tablet 46 Center pregabalin Yes 50mg QD Take [address] (LYRICA) 25 5-21 by mouth Luke s MG capsule 14:04: nightly . Me dical 46 Center esomeprazol Yes 40mg QD Take [address] [facility] (NEXIUM) 5-21 by mouth [facility] 40 MG 14:04: daily. Medical capsule 46 Center albuterol Yes 2{puff} Inhale [address] HFA 5-21 puffs by [facility] (VENTOLIN 14:04: mouth via Med ical HFA) 90 46 inhaler as Center mcg/actuati needed for on inhaler Wheezing or Shortness of Breath . simvastatin Yes hyperlipide 5mg QD Take [address] (ZOCOR) 5 5-21 louise by mouth [facility] MG tablet 14:04: nightly. Medi balne 46 Center carvediloL Yes 25mg Take [address] (COREG) 25 5-21 by mouth 2 Berta es MG tablet 14:04: (two) Medical 46 times Center daily with breakfast and dinner. cariprazine Yes 1.5mg QD Take 1.[address] (Vraylar) 5-21 mg by [facility] 1.5 mg Cap 14:04: mouth Medica l 46 nightly. [place] albuterol 202- No 1{ampul Q.5D Take [address] (ACCUNEB) 5-21 05-21 e} ampule by Luke s 1.25 mg/3 11:39: 00:00 nebulizati M edical mL 17 :00 on 2 (two) Center nebulizer times solution daily . fluticasone 2020- No 1{puff} QD Inhale [address] [address] -vilanterol 5-21 05-21 puff by Luke s (BREO 11:39: 00:00 mouth via Medica l ELLIPTA) 17 :00 inhaler Center 100-25 daily. mcg/dose DsDv tiotropium 2020- No 18ug QD Inhale [address] (SPIRIVA) 5-21 05-21 mcg by [facility] 18 mcg 11:39: 00:00 mouth via Medic al inhalation 17 :00 inhaler Center capsule daily. triamcinolo 2020- No 2{spray QD [address] [facility] ne 5-19 05-19 } by Nasal [facility] (NASACORT) 22:23: 00:00 route Medic al 55 mcg 54 :00 daily. [place] nasal inhaler topiramate 2020- No 200mg Q.5D Take [address] (TOPAMAX) 5-19 05-19 mg by [facility] 100 MG 22:23: 00:00 mouth 2 Medical tablet 21 :00 (two) Center times daily. ROFLUMILAST 2020- No COPD 500ug QD Take [address] ORAL 5-19 05-19 Associated mcg by [facility] 22:22: 00:00 with mouth Medical 54 :00 Chronic daily. Center Bronchitis ranolazine 2020- No 500mg Q.5D Take [address] (RANEXA) 5-19 05-19 mg by [facility] 500 MG 12 22:22: 00:00 mouth 2 Medi blane hr tablet 12 :00 (two) Center times daily. levothyroxi 2020- No 125ug Take [address] ne 5-19 05-19 mcg by [facility] (SYNTHROID, 22:20: 00:00 mouth Medi blane LEVOTHROID) 38 :00 Every Center 125 MCG morning on tablet an empty stomach. benztropine 2020- No 2mg Take [address] (COGENTIN) 5-19 05-19 by mouth 3 Jeanie kes 2 MG tablet 22:18: 00:00 (three) Me dical 40 :00 times Center daily as needed. benztropine 2020- No 1mg Take [address] [facility] [address] (COGENTIN) 5-19 05-19 by mouth Luke s 1 MG tablet 22:18: 00:00 daily as M edical 31 :00 needed. [place] ARIPiprazol 2020- No 5mg QD Take [address] [facility] e (ABILIFY) -10 02-19 by mouth Berta es 5 MG tablet 22:18: 00:00 nightly. edical 03 :00 [place] ARIPiprazol 2020- No 10mg QD Take [address] [facility] e (ABILIFY) -10 02-19 by mouth Berta es 10 MG 22:17: 00:00 daily. Medical disintegrat 48 :00 [place] ing tablet blood sugar 2017-09 Yes [id number] Use as Univers diagnostic 0-24 directed. ity of (TRUETEST 00:00: [place]. [place] TEST 00 Check once Medical STRIPS) daily Branch strip lancets 2017-09 Yes [id number] Use as Uni vers (TRUEPLUS 0-24 directed. ity o f LANCETS) 33 00:00: R 73.03, [place] gauge Misc 00 Check once Med ical daily Branch blood sugar 2017-09 Yes [id number] Use as Univers diagnostic 0-24 directed. ity of (TRUETEST 00:00: [place]. [place] TEST 00 Check once Medical STRIPS) daily Branch strip lancets 2017-09 Yes [id number] Use as Uni vers (TRUEPLUS 0-24 directed. ity o f LANCETS) 33 00:00: R 73.03, [place] gauge Misc 00 Check once Med ical daily Branch blood sugar 2017-09 Yes [id number] Use as Univers diagnostic 0-24 directed. ity of (TRUETEST 00:00: R [place].03. [place] TEST 00 Check once Medical STRIPS) daily Branch strip lancets 2017-09 Yes [id number] Use as Uni vers (TRUEPLUS 0-24 directed. ity o f LANCETS) 33 00:00: R 73.03, [place] gauge Misc 00 Check once Med ical daily Branch busPIRone Yes TK 1 T PO Uni vers 15 mg 9-22 BID ity of tablet 00:00: [place] 00 Medical Branch busPIRone Yes TK 1 T PO Uni vers 15 mg 9-22 BID ity of tablet 00:00: [place] 00 Medical Branch busPIRone Yes TK 1 T PO Uni vers 15 mg 9-22 BID ity of tablet 00:00: [place] 00 Medical Branch venlafaxine 2021- No 150mg 150 mg at Univers XR 150 mg 06-16 bedtime. ity o f 24 hr 00:00: 00:00 [place] capsule 00 :00 Medical Branch loratadine 2021- No as needed. Univers (CLARITIN) 06-05 ity of 10 mg 00:00: 00:00 [place] tablet 00 :00 [facility] Immunizations Ordered Filled Immunization Date Status Comments [facility] e Immunization Name Name SARS-COV-2 COVID-19 2021-02-08 Completed Unive rsity of MODERNA VACCINE 00:00:00 [facility] SARS-COV-2 COVID-19 2021-02-08 Completed Unive rsity of MODERNA VACCINE 00:00:00 [facility] SARS-COV-2 COVID-19 2021-02-08 Completed Unive rsity of MODERNA VACCINE 00:00:00 [facility] SARS-COV-2 COVID-19 2021-01-11 Completed Unive rsity of MODERNA VACCINE 00:00:00 [facility] SARS-COV-2 COVID-19 2021-01-11 Completed Unive rsity of MODERNA VACCINE 00:00:00 [facility] SARS-COV-2 COVID-19 2021-01-11 Completed Unive rsity of MODERNA VACCINE 00:00:00 [facility] Influenza Virus 2020-08-13 Completed Universit y of Vaccine 00:00:00 [facility] Influenza Virus 2020-08-13 Completed Universit y of Vaccine 00:00:00 [facility] Influenza Virus 2020-08-13 Completed Universit y of Vaccine 00:00:00 [facility] Pneumococcal 2017-06-23 Completed University o f Polysaccharide, 00:00:00 [facility] PPSV23 (PNEUMOVAX) Branch Pneumococcal 2017-06-23 Completed University o f Polysaccharide, 00:00:00 [facility] PPSV23 (PNEUMOVAX) Branch Pneumococcal 2017-06-23 Completed University o f Polysaccharide, 00:00:00 [facility] PPSV23 (PNEUMOVAX) [place] Influenza High Dose 2015-11-16 Completed Unive rsity of 00:00:00 [facility] Pneumococcal 2015-11-16 Completed University o f Polysaccharide, 00:00:00 [place] Med ical PPSV23 (PNEUMOVAX) Branch Influenza High Dose 2015-11-16 Completed Unive rsity of 00:00:00 [facility] Pneumococcal 2015-11-16 Completed University o f Polysaccharide, 00:00:00 [place] Med ical PPSV23 (PNEUMOVAX) Branch Influenza High Dose 2015-11-16 Completed Unive rsity of 00:00:00 [facility] Pneumococcal 2015-11-16 Completed University o f Polysaccharide, 00:00:00 [place] Med ical PPSV23 (PNEUMOVAX) Branch Vital Signs Vital Name Observation Time Observation Value Comments Source HEIGHT 2021-02-10 21:00:00 149.9 cm WEIGHT 2021-02-10 21:00:00 59.467 kg Systolic blood 2022-02-25 16:38:00 128 mm[Hg] Univer sity of pressure [facility] Diastolic blood 2022-02-25 16:38:00 89 mm[Hg] Unive rsity of [facility] Heart rate 2022-02-25 16:38:00 89 /min [facility] Respiratory rate 2022-02-25 16:38:00 19 /min [facility] height 2022-02-25 16:38:00 149.9 cm [facility] Body weight 2022-02-25 16:38:00 58.559 kg [facility] BMI 2022-02-25 16:38:00 26.08 kg/m2 [facility] Oxygen saturation in 2022-02-25 16:38:00 96 /min [facility] Arterial blood by [facility] Pulse oximetry Branch HEIGHT 2021-02-10 21:00:00 149.9 cm WEIGHT 2021-02-10 21:00:00 59.467 kg Oxygen saturation in 2021-03-18 20:00:00 97 /min [facility] Arterial blood by Pulse oximetry Systolic blood 2021-03-18 17:24:48 132 mm[Hg] Method ist [facility] pressure Diastolic blood 2021-03-18 17:24:48 72 mm[Hg] Metho dist [facility] pressure Heart rate 2021-03-18 17:24:48 96 /min [facility] Body temperature 2021-03-18 17:24:48 37 Ayaka [facility] Respiratory rate 2021-03-18 17:24:48 14 /min [facility] Body height 2021-03-18 01:37:00 149.9 cm [facility] Body weight 2021-03-18 00:09:00 58.968 kg [facility] BMI 2021-03-18 00:09:00 26.26 kg/m2 [facility] Systolic blood 2021-02-12 12:00:00 101 mm[Hg] [facility] Diastolic blood 2021-02-12 12:00:00 72 mm[Hg] [facility] Heart rate 2021-02-12 12:00:00 93 /min [facility] Respiratory rate 2021-02-12 12:00:00 18 /min [facility] Oxygen saturation in 2021-02-12 12:00:00 96 /min [facility] Arterial blood by Medical Ce nter Pulse oximetry Body temperature 2021-02-12 11:00:00 37.56 Ayaka [facility] Body height 2021-02-11 10:15:00 149.9 cm [facility] Body weight 2021-02-11 10:15:00 59.5 kg [facility] BMI 2021-02-11 10:15:00 26.48 kg/m2 [facility] Procedures Procedure Date / Time Performing Clinician Source Performed DME/SUPPLY JUSTIFICATION 2022-02-23 05:01:00 Doctor Unassigned, [facility]SE 2021-03-18 17:31:00 Cliff Berkowitz [facility] ECG 12-LEAD 2021-03-18 17:28:[facility]IN 2021-03-18 16:41[facility], WO 2021-03-18 14:19:12 [facility] CONTRAST, W DOPPLER ([id number]) POC GLUCOSE 2021-03-18 13:14:00 [facility] HC COMPLETE BLD COUNT 2021-03-18 10:00:00 [facility], [facility] W/AUTO DIFF COMPREHENSIVE METABOLIC 2021-03-18 10:00:00 [facility], [facility] PANEL MAGNESIUM LEVEL 2021-03-18 10:00:00 [facility], [facility] PHOSPHORUS LEVEL 2021-03-18 10:00:00 [facility], [facility] LIPID PANEL 2021-03-18 10:00:00 [facility], [facility] HEMOGLOBIN A1C 2021-03-18 10:00:00 L[facility], [facility] ESTIMATED GFR 2021-03-18 10:00:00 [facility], [facility] URINE CULTURE 2021-03-18 06:12:00 Lae, [facility] LEGIONELLA URINARY 2021-03-18 05:36:00 Lae, [facility] ANTIGEN STREPTOCOCCUS PNEUMONIAE 2021-03-18 05:36:00 [facility], [facility] URINARY ANTIGEN URINALYSIS SCREEN AND 2021-03-18 05:36:00 Laeeq, [facility] MICROSCOPY, WITH REFLEX TO CULTURE BLOOD CULTURE, AEROBIC & 2021-03-18 04:35:00 Lae, [facility] ANAEROBIC BLOOD CULTURE, AEROBIC & 2021-03-18 04:25:00 [facility], [facility] ANAEROBIC DIGOXIN LEVEL 2021-03-18 04:24:00 [facility], [facility] TROPONIN 2021-03-18 04:24:00 Hector Alvarez [facility] LACTIC ACID LEVEL, SEPSIS 2021-03-18 04:24:00 L[facility], [facility] - NOW AND REPEAT 2X EVERY 3 HOURS POC GLUCOSE 2021-03-18 01:38:00 [facility], [facility] ARTERIAL BLOOD GAS 2021-03-18 01:10:00 [facility], [facility] US DUPLEX VENOUS LOWER 2021-03-18 01:00:06 Lae, [facility] EXTREMITY BILATERAL LACTIC ACID LEVEL, SEPSIS 2021-03-17 23:47:00 [facility] - NOW AND REPEAT 2X EVERY 3 HOURS TROPONIN 2021-03-17 23:47:00 [facility] XR CHEST 1 VW PORTABLE 2021-03-17 21:20:18 [facility] HC COMPLETE BLD COUNT 2021-03-17 21:05:00 [facility] W/AUTO DIFF LACTIC ACID LEVEL, SEPSIS 2021-03-17 21:05:00 [facility] - NOW AND REPEAT 2X EVERY 3 HOURS COMPREHENSIVE METABOLIC 2021-03-17 21:05:00 [facility] PANEL TROPONIN 2021-03-17 21:05:00 [facility] B NATRIURETIC PEPTIDE 2021-03-17 21:05:00 [facility] D-DIMER 2021-03-17 21:05:00 [facility] ESTIMATED GFR 2021-03-17 21:05:00 [facility] ECG ED PRELIMINARY 2021-03-17 20:36:46 [facility] INTERPRETATION ECG 12-LEAD 2021-03-17 20:19:38 [facility] BASIC METABOLIC PANEL (7) 2021-02-12 05:34:00 [place] [facility] MAGNESIUM 2021-02-12 05:34:00 Johan [facility] PHOSPHORUS 2021-02-12 05:34:00 [facility] CBC W/PLT COUNT & AUTO 2021-02-12 04:48:00 JohanAlison [facility] MR BRAIN WITHOUT IV 2021-02-11 16:08:00 Igor Chew [facility] MRA HEAD WITHOUT IV 2021-02-11 16:07:00 Naina [facility] MRA NECK WITHOUT IV 2021-02-11 16:07:00 ChewIgor hicks [facility] RAPID DRUG SCREEN, URINE 2021-02-11 03:05:00 [facility] URINALYSIS WITH 2021-02-11 03:05:00 [facility] MICROSCOPIC IF INDICATED Center URINALYSIS MICROSCOPIC 2021-02-11 03:05:00 [facility] HOMOCYSTEINE 2021-02-11 02:46:00 [facility] RPR 2021-02-11 02:46:00 [facility] TSH/FREE T4 IF INDICATED 2021-02-11 02:46:00 [facility] VITAMIN B12 AND FOLATE 2021-02-11 02:46:00 [facility] CBC W/PLT COUNT & AUTO 2021-02-11 02:46:00 [facility] BASIC METABOLIC PANEL (7) 2021-02-11 02:46:00 [facility] MAGNESIUM 2021-02-11 02:46:00 [facility] PHOSPHORUS 2021-02-11 02:46:00 [facility] C-REACTIVE PROTEIN 2021-02-11 02:46:00 [facility] [place] DIGOXIN LEVEL 2021-02-11 02:46:00 [facility] XR CHEST 1 VIEW PORTABLE 2021-02-10 22:20:00 [facility] / BEDSIDE Center POCT-GLUCOSE METER 2021-02-10 21:28:00 Wilmer [facility] LIPID PANEL 2021-02-10 21:22:00 [facility] CREATINE KINASE (CK) 2021-02-10 21:21:00 [facility] [place] HEMOGLOBIN A1C 2021-02-10 21:21:00 [facility] CBC W/PLT COUNT & AUTO 2021-02-10:21:00 Alison Prado [facility] DIFFERENTIAL Center COMPREHENSIVE METABOLIC 2021-02-10 21:21:00 Alison Prado [facility] PANEL Center PROTHROMBIN TIME/INR 2021-02-10 21:21:00 [place] [facility] APTT 2021-02-10 21:21:00 [facility] 2021-02-10 21:21:00 [facility] PHOSPHORUS 2021-02-10 21:21:00 [facility] HIGH SENSITIVITY TROPONIN 2021-02-10 21:21:00 [place] [facility] B-TYPE NATRIURETIC FACTOR 2021-02-10 21:21:00 [place] [facility] ([facility]) [place] LACTIC ACID, VENOUS 2021-02-10 21:21:00 [place] Alison [facility] ARRYTHMIA IMPLANT REPORT 2021-02-10 00:00:00 Provider, Mino [facility] - SCAN Scanning Center Plan of Care Planned Activity Planned Date Details Comments Source Future Scheduled 2021-05-[address] [facility] Test 00:00:00 (#1) [code = [facility] INFLUENZA VACCINE (#1)] Future Scheduled 2020-09-[address] [facility] Test 00:00:00 (12+) [code = [facility] DEPRESSION SCREENING (12+)] Future Scheduled [address] [facility] 00:[facility]:00 malignant neoplasm Medical C enter of cervix (procedure) [code = 482093656] Future Scheduled 2000 DTAP/TDAP/TD [facility] VACCINES (1 - Tdap) [facility] [code = DTAP/TDAP/TD VACCINES (1 - Tdap)] Future Scheduled [address] [facility] 00:00:00 SCREENING [code = Medical Ce nter HEPATITIS C SCREENING] Future Scheduled Screening for [facility] Test malignant neoplasm of cervix (procedure) [code = 549302027] Future Scheduled [facility] [code = INFLUENZA VACCINE] Encounters Start End Encounter Admission Attending Care Care Encounter Source Date/Time Date/Time Type Type Clinicians Facility Department ID 2021-02-10 Inpatient ER BERTATY, SLEShauna Neurology [id number] [facility] 20:21:00 WILMER 2020-09-29 Inpatient Mely, HCAPM ENDO [id number] [facility] 10:15:00 Linus [id number] [facility] 2020-09-28 Inpatient EL Mely, HCAPM ENDO [id number] [facility] 12:00:00 Linus [id number] [facility] 2022-05-13 2022-05-13 [facility] [id number] [facility] 10:00:00 10:00:00 [facility] [id number] ity [facility] 2022-05-13 2022-05-13 Outpatient Miguel [facility] [id number] Univers 10:00:00 10:00:00 [facility]O [facility] 2022-02-25 2022-02-25 [facility] 1.2.840.114 [id number] Univers 11:30:00 11:59:54 Visit Tucker ONTIVEROS 350.1.13.10 i [place] [id number] Fl dical NAL [address] [place] [address] 2022-02-23 2022-02-23 Orders Doctor NUNO 1.2.840.114 [id number] Univers 00:00:00 00:00:00 Only Unassigned, PINKY 350.1.13.10 ity of [place] [facility] 4.2.7.2.686 Basilio as [id number] [address] 2022-02-23 2022-02-23 Telephone [facility] 1.2.840.114 [id number] Univers 00:00:00 00:00:00 Teofilo ONTIVEROS 350.1.13.10 it[place] [phone] Fl dical NAL [address] [place] [address] 2021-05-12 2021-05-12 Orders Doctor NURYS 1.2.840.114 [id number] 00:00:00 00:00:00 Only Unassigned, PINKY 350.1.13.10 [place] [facility] 4.2.7.2.686 [id number] 009 2021-04-29 2021-04-29 Office Malena AZLENARD 1.2.840.114 [id number] 62 12:33:16 13:56:43 Visit Tucker Ontiveros 350.1.13.10 [place] 4.2.7.2.686 Professio [id number] [facility] 2021-04-28 2021-04-28 Orders Malena [facility] 1.2.713.827 [id number] 00:00:00 00:00:00 Only [facility] 350.1.13.10 CLINICS 4.2.7.2.686 [id number] 084 2021-03-19 2021-03-19 Patient Omari, 1.2.840.1 [id number] Methodi 00:00:00 00:00:00 Outreach Ann [address]241.1.[address] 3.430.2.7 Hospit a .3.248079 l .8 2021-03-17 2021-03-18 Emergency AntonioHector T. 1.2.840.1 [id number] Methodi 14:59:00 17:52:00 Veda Bolanos 37274.1.[address] [facility] 3.430.2.7 Hospita .3.399919 l .8 2021-03-17 2021-03-17 Travel 1.2.840.1 1.2.954.009 1460 [id number] Methodi 00:00:00 00:00:[address] 3.430.2.7 0.2.7.3.698 spita .3.751233 084.8 l .8 2017-09-06 2017-09-08 [id number] 10:12:00 02:32:00 [facility] Results Test Description Test Time Test Comments Results Result Comments Source ECG 12 lead 2021-03-19 14:56:41 Test Item Value Reference Range Interpretation Comme nts Ventricular rate (test code = 253) Atrial rate (test code = 255) [place] interval (test code = 266) QRSD interval [...] of 17-MAR-2021 15:19,-No significant change was found- [facility]exm7945[facility]33-74 12:41:23 Test Item Value Reference Range Interpretation Comments Urine culture isolate Mixed alok <=10-3 (test code = 05360-3) col/cc [facility] Echocardiogram Complete, (w Contrast, Strain and 3D if needed)2021-03-18 23:04:52 Test Item Value Reference Range Interpretation Comments Ao Root Diameter (test code = 2.73 cm 5699032665) AoV Area, Vmax (test code = 2.24 cm2 6228738017) AoV Area, VTI (test code = 2.25 cm2 2564371522) AoV Mean PG (test code = mmHg 0544884444) AoV Peak PG (test code = mmHg 7382706207) AoV Vmax (test code = 1624150618) 1.46 m/s AoV VTI (test code = 3597342568) 0.28 m IVS,d (test code = 3115867305) 0.72 cm IVS/LVPW,2D (test code = 3390690225) Left Atrium Dimension Anterior 2.68 cm (test code = 4553484652) LV,d (test code = 3372843172) 3.69 cm LV EF,2D (test code = 3302770678) 79.68 % LV,s (test code = 3487655783) 2.17 cm LVOT area (test code = 0045648363) 2.75 cm2 LVOT Diam,S (test code = 1.87 cm 4959092351) LVOT Vmax (test code = 8350161552) 1.18 m/s LVOT VTI (test code = 1557686003) 0.23 m LVPWD,d (test code = 9254276728) 0.65 cm PV Pk Grad (test code = 1319724505) mmHg PV VMAX (test code = 2217604640) 0.84 m/s RVOT Vmax (test code = 5648573968) 0.85 m/s RVSP (TR) (test code = 4561640730) mmHg TR Vpeak (test code = 4718448545) 2.86 mm/s MV E A ratio (test code = 9346077232) RA pressure (test code = mmHg 4225426894) TR pk grad (test code = 7732551580) mmHg MR Vmax (test code = 9071443227) 5.49 m/s E wave decelartion time (test code msec = 2510134752) MV Peak A Alf (test code = 0.76 m/s 3956969290) MV valve area p 1/2 method (test 3.26 cm2 code = 5333077638) MV Peak E Afl (test code = 0.92 m/s 6462882618) MV stenosis pressure 1/2 time (test 67.54 ms code = 0085773054) LVOT stroke volume (test code = 0.63 cm3 1512944764) AV LVOT peak gradient (test code = mmHg 2620913387) RVSP (test code = 2037950669) mmHg Ao Root Diameter (test code = 2.73 cm 2546798578) MV mean gradient (test code = mmHg 2583315880) LV SYS VOL (test code = 2324290985) 15.61 ml LV MARTINS VOL (test code = 57.63 ml 3373090100) LA area s A4C (test code = 11.16 cm2 8119873346) LV SV Teich 2D (test code = 42.02 ml 7477939888) LV Vol s Teich PSAX (test code = 15.61 ml 7762609113) MR peak grad (test code = mmHg 0201461832) MV Vmax (test code = 2461395441) 1.21 m MV VTI Tips (test code = 0.24 m 2693021178) RVOT pk grad (test code = mmHg 6869947487) AoV Vmn (test code = 0891071057) LV FS Teich 2D (test code = 8964055913) MV AE ratio (test code = 2573754570) LV FS Cube 2D (test code = 2277512058) LVOT Vmn (test code = 4183374825) Aov area Vmn (test code = 2.13 cm2 8170233260) LVOT mean grad (test code = mmHg 8885046768) MAX Pred HR (test code = 7568293430) 85 of MPHR (test code = 6215171743) Calc MPHR (test code = 2695270096) bpm LV SV Cube 2D (test code = 39.93 ml 8872292823) LV vol d cube 2D (test code = 50.11 ml 0574233455) LV vol s cube 2D (test code = 10.18 ml 3959010891) MV Decel slope (test code = 3.97 m/s2 4102367646) Pred Exer Dur R1 (test code = 2311107727) Pred METS R1 (test code = 7615851789) LA Vol MOD A4C (test code = 24.20 ml 4125836384) Velocity Ratio (V1/V2) (test code = 0.81 m/s 4689) EF (test code = 4083044753) 72.91 % E/A ratio (test code = 1084583297) LVOT VTI (CM) (test code = 23.00 cm 9433189954) SOMMER (test code = SOMMER) [facility] enxuhqh1354-72-23 17:32:37 Test Item Value Reference Range Interpretation Comments POC glucose (test code = 28752-4) 207 mg/dL 65-99 H Lab Interpretation (test code = Abnormal 22404-7) [facility] duplex venous lower unnegusfc4496-10-71 01:17:37 EXAMINATION: US DUPLEX VENOUS LOWER EXTREMITY [...] is no evidence of deep venous thrombosis. [facility]-[id number] Interface, Radiology Results 03/17/2021 8:20 PM CDT [...] no evidence of deep venous thrombosis.[facility]-[id number] HospitalXR Chest 1 Vw Terccjai0499-43-30 21:32:52EXAMINATION: XR CHEST 1 VW PORTABLE CLINICAL HISTORY: 40 years Female SOB COMPARISON: None. IMPRESSION: Lines, tubes, and devices: Right-sided transvenous cardiac pacemaker. Heart and mediastinum: Cardiomediastinal silhouette is normal. Lungs and pleura: There is no focal airspace disease, pleuraleffusion or pneumothorax. Bones/soft tissues: No acute osseous abnormality. [facility]-[id number] Dictatedand approved by residential interior designer/fellow: Cristhian Calixto M.D. I, Jan Scott [...] pneumothorax.Bones/soft tissues: No acute osseous abnormality.[facility]-[id number] and approved by residential interior designer/fellow: Cristhian Calixto M.D.I, Jan Scott MD, personally rev iewed the images and resident's/fellow's findings and agree with the final report.[facility] HospitalARRYTHMIA IMPLANT REPORT - [id number] 20:45:31 Ordered by an unspecified provider.[facility] Preliminary Interpretation - Not an [id number] 20:36:46 Test Item Value Reference Range Interpretation Comments SOMMER (test code = SOMMER) Lab Interpretation (test code = Abnormal 47570-5) [facility] Metabolic Frwci2692-43-88 07:01:00 Test Item Value Reference Range Interpretation Comments Sodium (test code = 137 meq/L 607-074 8611-2) Potassium (test code = 4.3 meq/L 3.5-5.1 2823-3) Chloride (test code = 104 meq/L 98-107 2075-0) CO2 (test code = 24 meq/L 22-29 2028-9) BUN (test code = 15 mg/dL 7-21 3094-0) Creatinine (test code 0.81 mg/dL 0.57-1.25 = 2160-0) Glucose (test code = 108 mg/dL 70-105 H 2345-7) Calcium (test code = 9.2 mg/dL 8.4-10.2 49227-4) EGFR (test code = 79 mL/min/1.73 [place] [address]-7) NOT ACCURATE CREATININE CLEARANCE IN PREDICTING GLOMERULAR FILTRATION RATE . ESTIMATED GFR I S NOT APPLICABLE FOR DIALYSIS PATIENTS. SOMMER (test code = SOMMER) Top Stop Attacher ID - PIAYA L Lab Interpretation Abnormal (test code = 01275-0) [facility] Center[facility]esium2021-[facility] 07:01:00 Test Item Value Reference Range Interpretation Comments Magnesium (test code = 2.5 mg/dL 1.6-2.6 39361-0) SOMMER (test code = SOMMER) Top Stop Attacher ID - PIAYA L Lab Interpretation (test Normal code = 97317-2) [facility] CenterPhosphorus2021-[facility]-21 07:01:00 Test Item Value Reference Range Interpretation Comments Phosphorus (test code = 4.3 mg/dL 2.3-4.7 2777-1) SOMMER (test code = SOMMER) Top Stop Attacher ID Jodie CARTY L Lab Interpretation (test Normal code = 45673-4) [facility] CenterBASIC METABOLIC [id number] 07:01:00 Test Item Value Reference Range Interpretation [...] S NOT APPLICABLE FOR DIALYSIS PATIEN TS. Top Stop Attacher ID - MACHELLE [id number] 07:01:00 Test Item Value Reference Range Interpretation Comments MAGNESIUM (BEAKER) (test code = 2.5 mg/dL 1.6-2.6 627) Top Stop Attacher ID - MACHELLE [id number] 07:01:00 Test Item Value Reference Range Interpretation Comments PHOSPHORUS (BEAKER) (test code = 4.3 mg/dL 2.3-4.7 604) Top Stop Attacher ID Jodie CARTY LCBC with platelet count + automated plzt2809-89-45 05:37:00 Test Item Value Reference Range Interpretation Comments WBC (test code = 6690-2) 6.8 See_Comment [A utomated message] The system [employer] generated this result transmitted ref erence range: 3.5 - 10 .5 K/L. The refe rence range was not u sed to interpret this result as normal/abnor mal. RBC (test code = 789-8) 5.14 See_Comment [Au tomated message] The system [employer] generated this result transmitted ref erence range: 3.93 - 5 .22 M/L. The refe rence range was not u sed to interpret this result as normal/abnor mal. MCHC (test code = 786-4) 31.6 See_Comment L [A utomated message] The system [employer] generated this result transmitted ref erence range: [...] See_Comment [Aut omated message] 777-3) The system [employer] generated this result transmitted ref erence range: 150 - 45 0 K/CU MM. The referen ce range was not u sed to interpret this result as normal/abnor mal. MPV (test code = 10.0 fL 9.4-12.3 94620-8) nRBC (test code = 413) 0 See_Comment [Aut omated message] The system [employer] generated this result transmitted ref erence range: [...] See_Comment [Aut omated message] 670) The system [employer] generated this result transmitted ref erence range: 1.56 - 6 .13 K/L. The refe rence range was not u sed to interpret this result as normal/abnor mal. # Lymphs (test code = 2.10 See_Comment [Auto mated message] 414) The system [employer] generated this result transmitted ref erence range: 1.18 - 3 .74 K/L. The refe rence range was not u sed to interpret this result as normal/abnor mal. # Monos (test code = 0.48 See_Comment H [Autom ated message] 415) The system [employer] generated this result transmitted ref erence range: 0.24 - 0 .36 K/L. The refe rence range was not u sed to interpret this result as normal/abnor mal. # Eos (test code = 416) 0.26 See_Comment [Au tomated message] The system [employer] generated this result transmitted ref erence range: 0.04 - 0 .36 K/L. The refe rence range was not u sed to interpret this result as normal/abnor mal. # Baso (test code = 417) 0.04 See_Comment [A utomated message] The system [employer] generated this result transmitted ref erence range: 0.01 - 0 .08 K/L. The refe rence range was not u sed to interpret this result as normal/abnor mal. Immature 1 % 0-1 Granulocytes-Relative (test code = 2801) Lab Interpretation (test Abnormal code = 06105-3) [facility] W/PLT COUNT & AUTO [id number] 05:37:00 Test Item Value Reference Range Interpretation [...] code = 2801) MR, MRA, BRAIN, WITHOUT [id number] 16:54:00Reason for exam:->Ischemic Stroke [facility] : 1980 Sex: FFINAL REPORT MR, BRAIN, WITHOUT CONTRAST, MR, MRA, BRAIN, WITHOUT CONTRAST, MR, MRA, NECK, WITHOUT IV CONTRAST INDICATION: Stroke, follow upIschemic Stroke Evaluation TECHNIQUE: Multiplanar, multisequence MR imaging of the brain without intravenous contrast.MRA of the head utilizing 3-D arty-ve-embemi technique, with 3-D reconstructions.MRA of the neck utilizing 2-D and 3-D fcvk-tv-lnsacw technique, with 3-D reconstructions. COMPARISON: MRI and [...] 02/11/2021 16:54:16 MR, MRA, NECK, WITHOUT IV [id number] 16:54:00Reason for exam:->Ischemic Stroke Evaluation [facility] 1980 Sex: FFINAL REPORT MR, BRAIN, WITHOUT CONTRAST, MR, MRA, BRAIN, WITHOUT CONTRAST, MR, MRA, NECK, WITHOUT IV CONTRAST INDICATION: Stroke, follow upIschemic Stroke Evaluation TECHNIQUE: Multiplanar, multisequence MR imaging of the brain without intravenous contrast.MRA of the head utilizing 3-D zpts-yu-estrgb technique, with 3-D reconstructions.MRA of the neck utilizing 2-D and 3-D zmhe-qm-kpegcd technique, with 3-D reconstructions. COMPARISON: MRI and [...] Verified Date/Time: 02/11/2021 16:54:16 MR, BRAIN, WITHOUT [id number] 16:54:00Reason for exam:->[facility]schemic Stroke [facility] 1980 Sex: FFINAL REPORT MR, BRAIN, WITHOUT CONTRAST, MR, MRA, BRAIN, WITHOUT CONTRAST, MR, MRA, NECK, WITHOUT IV CONTRAST INDICATION: Stroke, follow upIschemic Stroke Evaluation TECHNIQUE: Multiplanar, multisequence MR imaging of the brain without intravenous contrast.MRA of the head utilizing 3-D blzi-xt-daijgz technique, with 3-D reconstructions.MRA of the neck utilizing 2-D and 3-D hbaq-ne-pqbaal technique, with 3-D reconstructions. COMPARISON: MRI and [...] Date/Time: 02/11/2021 16:54:16 MR brain without IV eyuyybqg1454-91-50 16:54:00Interface, External Ris In - 02/11/2021 4:56 PM CDTFINAL REPORT MR, BRAIN, WITHOUT CONTRAST, MR, MRA, BRAIN, WITHOUT CONTRAST, MR, MRA, NECK, WITHOUT IV CONTRAST INDICATION: Stroke, follow upIschemic Stroke Evaluation TECHNIQUE: Multiplanar, multisequence MR imaging of the brain without intravenous contrast.MRA of the head utilizing 3-D kzin-vk-ssarqo technique, with 3-D reconstructions.MRA of the neck utilizing 2-D and 3-D mqyr-pq-zwykzn technique, with 3-D reconstructions. COMPARISON: MRI and [...] Signed: Lakshmi Amador Verified Date/Time: 02/11/2021 16:54:16 [facility] gihzmbkl0511-46-81 16:54:00Interface, External Ris In - 02/11/2021 4:56 PM CDTFINAL REPORT MR, BRAIN, WITHOUT CONTRAST, MR, MRA, BRAIN, WITHOUT CONTRAST, MR, MRA, NECK, WITHOUT IV CONTRAST INDICATION: Stroke, follow upIschemic Stroke Evaluation TECHNIQUE: Multiplanar, multisequence MR imaging of the brain without intravenous contrast.MRA of the head utilizing 3-D aydj-rx-ugqjhn technique, with 3-D reconstructions.MRA of the neck utilizing 2-D and 3-D vsja-hi-ulrgxu technique, with 3-D reconstructions. COMPARISON: MRI and [...] Signed: Lakshmi Amador Verified Date/Time: 02/11/2021 16:54:16 [facility] without IV mripupne0213-08-73 16:54:00Interface, External Ris In - 02/11/2021 4:56 PM CDTFINAL REPORT MR, BRAIN, WITHOUT CONTRAST, MR, MRA, BRAIN, WITHOUT CONTRAST, MR, MRA, NECK, WITHOUT IV CONTRAST INDICATION: Stroke, follow upIschemic Stroke Evaluation TECHNIQUE: Multiplanar, multisequence MR imaging of the brain without intravenous contrast.MRA of the head utilizing 3-D auwf-dg-olzzec technique, with 3-D reconstructions.MRA of the neck utilizing 2-D and 3-D wiyt-qa-wvyait technique, with 3-D reconstructions. COMPARISON: MRI and [...] Lakshmi Amador MDReport Verified Date/Time: 02/11/2021 16:54:16 [facility]RPR2021-[facility] 14:02:00 Test Item Value Reference Range Interpretation Comments RPR (test code = 06149-5) Nonreactive Nonreactive Lab Interpretation (test code = Normal 60409-3) [facility] CenterRPR20[facility] 14:02:00 Test Item Value Reference Range Interpretation Comments RPR SCREEN (BEAKER) (test code = Nonreactive Nonreactive 420) Hemoglobin [id number] 09:35:00 Test Item Value Reference Range Interpretation Comments Hemoglobin A1C (test code = 4548-4) 6.0 % 4.3-6.1 Lab Interpretation (test code = Normal 01505-1) [facility] CenterHEMOGLOBIN [id number] 09:35:00 Test Item Value Reference Range Interpretation Comments HEMOGLOBIN A1C (BEAKER) (test code = 6.0 % 4.3-6.1 368) Rapid drug screen, [id number] 07:26:00 Test Item Value Reference Range Interpretation Comments Barbiturate Screen Negative Negative (test code = 84036-9) Benzodiazepine Screen Negative Negative (test code = 89234-7) Cocaine (Metab.) Negative Negative Screen (test code = 3397-7) Methadone Screen (test Negative Negative code = 36301-7) Opiate Screen (test Negative Negative code = 71899-7) Cannabinoid Screen Negative Negative (test code = 32105-3) Amph/Methamph Screen Negative Negative (test code = 00345-1) Phencyclidine Screen Negative Negative (test code = 01426-4) pH, UA (test code = 6.5 5.0-8.0 5803-2) SOMMER (test code = SOMMER) DRUG CUTOFF CONC.Cocaine 300 ng/mL Cannabinoid 50 ng/mLBenzodiazepine 200 ng/mLBarbiturate 200 ng/mLPhencyclidine 25 ng/mLOpiate 300 ng/mLMethadone 300 ng/mLAmphetamine/ 1000 ng/mL Methamphetamine This assay provides an unconfirmed qualitative test result for the clinical management of patients in emergency situations. Chain of custody not maintained. Some jcmd-wdf-seqtrrp medications, as well as adulterants, may cause inaccurate results. Clinical correlation should be applied. A more comprehensive drug screen or confirmation of a detected drug may be performed upon request.Top Stop Attacher ID - VIET M Lab Interpretation Normal (test code = 62040-6) [facility] CenterRAPID DRUG SCREEN, [id number] 07:26:00 Test Item Value Reference Range Interpretation [...] situations. Chain of custody not maintained. Some fjqi-xxi-exrbduj medications, as well as adulterants, may cause inaccurate results. Clinical correlation should be applied. A more comprehensivedrug screen or confirmation of a detected drug may be performed upon request.Top Stop Attacher ID - VIET MUrinalysis with Microscopic If Tlgynbgnp2189-30-78 07:11:00 Test Item Value Reference Range Interpretation Comments Color, UA (test code = Light Yellow 5778-6) Clarity, UA (test code = Clear 5767-9) Specific Rosie, UA (test 1.012 1.001-1.035 code = 5811-5) pH, UA (test code = 6.5 5.0-8.0 5803-2) Protein, UA (test code = Negative Negative 75398-9) Glucose, UA (test code = Negative Negative 365) Ketones, UA (test code = Negative Negative 2514-8) Bilirubin, UA (test code = Negative Negative 72753-5) Blood, UA (test code = Small Negative A 61332-4) Nitrite, UA (test code = Negative Negative 5802-4) Leukocytes, UA (test code Small Negative A = 5799-2) Urobilinogen, UA (test 0.2 mg/dL 0.2-1 code = 97209-8) Specimen Source (test code = 2795) SOMMER (test code = SOMMER) Top Stop Attacher ID - [auto]Top Stop Attacher ID - tech Lab Interpretation (test Abnormal code = 87519-0) [facility] CenterUrinalysis Microscopic [id number] 07:11:00 Test Item Value Reference Range Interpretation Comments RBC, UA (test 11 See_Comment [Automated me ssage] code = 67457-0) The system w [facility] generated this result transmitted ref erence range: /HPF. Th e reference range was not used to int erpret this result as normal/abnormal . WBC, UA (test 11 See_Comment [Automated me ssage] code = 5821-4) The system [facility] generated this result transmitted ref erence range: /HPF. Th e reference range was not used to int erpret this result as normal/abnormal . Mucus (test Rare code = 8247-9) Squam Epithel, 3 See_Comment [Automated m essage] UA (test code = The system w [facility] 65515-2) generated this result transmitted ref erence range: /HPF. Th e reference range was not used to int erpret this result as normal/abnormal . SOMMER (test code Top Stop Attacher ID - tech = SOMMER) [facility] CenterURINALYSIS WITH MICROSCOPIC IF [id number] 07:11:00 Test Item Value Reference Range Interpretation [...] = 463) SOURCE(BEAKER) (test code = 2795) Top Stop Attacher ID - [auto]Top Stop Attacher ID - techURINALYSIS FIOMVOITBKF5864-50-18 07:11:00 Test Item Value Reference Range Interpretation Comments RBC UA (BEAKER) (test code = 519) 11 /HPF WBC UA (BEAKER) (test code = 520) 11 /HPF MUCUS (BEAKER) (test code = 1574) Rare SQUAMOUS EPITHELIAL (BEAKER) (test 3 /HPF code = 516) Top Stop Attacher ID - techDigoxin qpxoq6852-62-40 06:22:00 Test Item Value Reference Range Interpretation Comments Digoxin Lvl (test code = <0.30 0.8-2 L 96158-1) SOMMER (test code = SOMMER) Top Stop Attacher ID - SHAMIKAAYA L Lab Interpretation (test Abnormal code = 38696-1) [facility] CenterDIGOXIN [id number] 06:22:00 Test Item Value Reference Range Interpretation Comments DIGOXIN LEVEL (BEAKER) (test code = < ng/mL 0.80-2.00 L 669) Top Stop Attacher ID - MACHELLE XPqtynouxiyfq7711-72-75 05:58:00 Test Item Value Reference Range Interpretation Comments Homocysteine (test code = 7.3 umol/L 5.1-15.4 07897-8) SOMMER (test code = SOMMER) Top Stop Attacher ID - PIAYA L Lab Interpretation (test Normal code = 14501-5) [facility] CenterTSH/Free T4 If Hainkrktr0254-31-45 05:58:00 Test Item Value Reference Range Interpretation Comments TSH (test code = 4.368 See_Comment [Automated 38537-1) message] The system which generated this result transmit aida reference range : 0.350 - 4.940 uIU/mL. The reference range was not used to interpret this result as normal/abnormal . SOMMER (test code = SOMMER) Top Stop Attacher ID - MACHELLE L Lab Interpretation Normal (test code = 40122-6) [facility] CenterVitamin B12 and Zewyia5549-17-88 05:58:00 Test Item Value Reference Range Interpretation Comments Vitamin B12 (test 557 pg/mL 213-816 code = 2132-9) Folate (test code = 11.20 ng/mL See_Comment [Automa aida 2284-8) message] The system which generated this result transmit aida reference range : >=7.00. The reference range was not used to interpret this result as normal/abnormal . SOMMER (test code = SOMMER) Top Stop Attacher ID - PIAYA L Lab Interpretation Normal (test code = 31646-5) [facility] Ce[id number] 05:58:00 Test Item Value Reference Range Interpretation Comments HOMOCYSTEINE (BEAKER) (test code = 7.3 umol/L 5.1-15.4 642) Top Stop Attacher ID - MACHELLE LTSH/FREE T4 IF [id number] 05:58:00 Test Item Value Reference Range Interpretation Comments THYROID STIMULATING HORMONE 4.368 uIU/mL 0.350-4.940 (BEAKER) (test code = 772) Top Stop Attacher ID - MACHELLE LVITAMIN B12 AND [id number] 05:58:00 Test Item Value Reference Range Interpretation Comments VITAMIN B12 557 pg/mL 213-816 (BEAKER) (test code = 774) FOLATE (BEAKER) 11.20 ng/mL See_Comment [Automated message] (test code = 362) The system which generated this result transmitted ref erence range: >=7.00. The reference range was not used to interpr et this result as normal/abnormal . Top Stop Attacher ID - MACHELLE LC-Reactive [id number] 04:54:00 Test Item Value Reference Range Interpretation Comments CRP (test code = 676) 0.81 mg/dL 0-0.5 H SOMMER (test code = SOMMER) Top Stop Attacher ID - MACHELLE L Lab Interpretation (test Abnormal code = 08973-8) [facility] 04:54:00 Test Item Value Reference Range Interpretation Comments MAGNESIUM (BEAKER) 2.1 mg/dL 1.6-2.6 Specimen slightly (test code = 627) hemolyzed Top Stop Attacher ID - MACHELLE [id number] 04:54:00 Test Item Value Reference Range Interpretation Comments PHOSPHORUS (BEAKER) 4.3 mg/dL 2.3-4.7 Specimen slightly (test code = 604) hemolyzed Top Stop Attacher ID - MACHELLE LBASIC METABOLIC [id number] 04:54:00 Test Item Value Reference Range Interpretation [...] S NOT APPLICABLE FOR DIALYSIS PATIEN TS. Top Stop Attacher ID - MACHELLE LC-REACTIVE [id number] 04:54:00 Test Item Value Reference Range Interpretation Comments C-REACTIVE PROTEIN (BEAKER) (test 0.81 mg/dL 0.00-0.50 H code = 676) Top Stop Attacher ID - MACHELLE LCBC W/PLT COUNT & AUTO [id number] 02:54:00 Test Item Value Reference Range Interpretation [...] = 2801) RAD, CHEST, 1 VIEW, NON [id number] 22:40:00Reason for exam:->strokeShould this be performed at the bedside?->Yes [facility] 1980 Sex: FFINAL REPORT RAD, CHEST, 1 VIEW, NON DEPT TECHNIQUE: Frontal view(s) of the chest. INDICATION: stroke. COMPARISON: 08/20/2018 chest radiograph FINDINGS/IMPRESSION: Lines/Tubes: Unchanged 2-lead pacemaker Lungs/pleura: No focal consolidation or definite interstitial pulmonary edema. No pleural effusion. No pneumothorax. Heart and Mediastinum: Unremarkable. Soft Tissues and Bones: Unremarkable. Signed: Wilmer Nieves MDRkarenort Verified Date/Time: 02/10/2021 22:40:02 Reading Location: [address] Transitional Reading Room XR chest 1 view portable / [id number] 22:40:00Interface, External Ris In - 02/10/2021 10:42 [...] MDReport Verified Date/Time: 02/10/2021 22:40:02 Reading Location: [address] Transitional Reading Room [facility] W/PLT COUNT & AUTO [id number] 22:16:00 Test Item Value Reference Range Interpretation [...] Range Interpretation Comments BNP (test code = 93901-9) <10 0-100 SOMMER (test code = SOMMER) Top Stop Attacher ID - BS Lab Interpretation (test Normal code = 09817-7) [facility] CenterB-TYPE NATRIURETIC FACTOR (BNP)2021-02-10 22:04:00 Test Item Value Reference Range Interpretation Comments B-TYPE NATRIURETIC PEPTIDE (BEAKER) < pg/mL 0-100 (test code = 700) Top Stop Attacher ID - BSHigh Sensitivity Troponin I ([facility] Only)2021-02-10 21:57:00 Test Item Value Reference Range Interpretation Comments Troponin I HS <4 See_Comment [Automated (test code = message] The 92886-1) system which generated this result transmitted reference range : <=17 pg/ml. The reference range was not used to interpret this result as normal/abnormal . SOMMER (test code = Top Stop Attacher ID - SOMMER) BSThe BUSINESS MANAGEMENT ANALYST STAT High Sensitivity Troponin-I results should be used in conjunction with other diagnostic information such as ECG, clinical observations and information, and patient symptoms to aid in the diagnosis of [place]. Lab Interpretation Normal (test code = 56575-9) [facility] CenterHIGH SENSITIVITY TROPONIN [id number] 21:57:00 Test Item Value Reference Range Interpretation Comments HIGH SENSITIVITY < pg/ml See_Comment [Automated message] TROPONIN I (test code = The system which [id number]) generated this result transmitted ref erence range: <=17. Th e reference range was not used to interpr et this result as normal/abnormal . Top Stop Attacher ID - BSThe BUSINESS MANAGEMENT ANALYST STAT High Sensitivity Troponin-I results should be used in conjunctionwith other diagnostic information such as ECG, clinical observations and information, and patient symptoms to aid in the diagnosis of [place].Lipid [id number] 21:54:00 Test Item Value Reference Range Interpretation Comments Triglycerides (test 171 mg/dL Specimen code = 2571-8) markedly hemolyzed Cholesterol (test 218 mg/dL Specimen code = 2093-3) markedly hemolyzed HDL (test code = 47 mg/dL 2084-9) LDL Calculated (test 137 mg/dL code = 26034-6) SOMMER (test code = Triglyceride SOMMER) Reference Range: Low Risk <150 Borderline 150-199 High Risk 200-499 Very High Risk >=500 Cholesterol Reference Range: Low Risk <200 Borderline 200-239 High Risk >240 HDL Cholesterol Reference Range: Low Risk >=60 High Risk <40 LDL Cholesterol Reference Range: Optimal <100 Near Optimal 100-129 Borderline 130-159 High 160-189 Very High >=190 Top Stop Attacher ID - BS [facility] CenterLIPID [id number] 21:54:00 Test Item Value Reference Range Interpretation Comments TRIGLYCERIDES (BEAKER) 171 mg/dL Speci men markedly (test code = 540) hemolyzed CHOLESTEROL (BEAKER) 218 mg/dL Specime n markedly (test code = 631) hemolyzed HDL CHOLESTEROL (BEAKER) 47 mg/dL (test code = 976) LDL CHOLESTEROL 137 mg/dL CALCULATED (MEYAKER) (test code = 633) Triglyceride Reference Range: Low Risk <150 Borderline 150-199 High Risk 200-499 Very High Risk >=500Cholesterol Reference Range: Low Risk <200 Borderline 200-239 High Risk >240HDL Cholesterol Reference Range: Low Risk >=60 High Risk <40LDL Cholesterol Reference Range: Optimal <100 Near Optimal 100-129 Borderline 130-159 High 160-189 Very High >=190 Top Stop Attacher ID - BSComprehensive metabolic [id number] 21:52:00 Test Item Value Reference Range Interpretation Comments Protein, Total 8.0 See_Comment Specimen slig htly (test code = hemolyzed 2884-2) [Automated message] The system which generated this result transmit aida reference range : 6.0 - 8.3 gm/dL . The reference range was not u sed to interpret th is result as normal/abnormal . Albumin (test code 4.2 g/dL 3.5-5 Specimen slightly = 44822-4) hemolyzed Alkaline 135 U/L 40-150 Phosphatase (test code = 6768-6) Total Bilirubin 0.2 mg/dL 0.2-1.2 Specimen i ghtly (test code = hemolyzed 1974-) Sodium (test code = 139 meq/L 859-192 7431-2) Potassium (test 4.5 meq/L 3.5-5.1 Specimen sli ghtly code = 2823-3) hemolyzed Chloride (test code 103 meq/L 98-107 = 5-0) CO2 (test code = 25 meq/L 22-29 2028-05) BUN (test code = 9 mg/dL 7-21 3094-0) Creatinine (test 0.78 mg/dL 0.57-1.25 [facility] = 2160-0) hemolyzed Glucose (test code 105 mg/dL 70-105 = 2345-7) Calcium (test code 9.6 mg/dL 8.4-10.2 = 68979-9) AST (test code = 28 U/L 5-34 Specimen sl ightly 1919-8) hemolyzed ALT (test code = 52 U/L 6-55 Specimen sl ightly 1742-6) hemolyzed EGFR (test code = 82 mL/min/1.73 [place] [address]-8) NOT ACCURATE CREATININE CLEARANCE IN PREDICTING GLOMERULAR FILTRATION RATE . ESTIMATED GFR I S NOT APPLICABLE FOR DIALYSIS PATIEN TS. SOMMER (test code = Top Stop Attacher ID - BS SOMMER) [facility] CenterCreatine Kinase (CK)2021-02-10 21:52:00 Test Item Value Reference Range Interpretation Comments Total CK (test code = 70 U/L 29-200 2157-6) SOMMER (test code = SOMMER) Top Stop Attacher ID - BS Lab Interpretation (test Normal code = 70614-2) [facility]MAGN[facility]IUM2021-05-19 21:52:00 Test Item Value Reference Range Interpretation Comments MAGNESIUM (BEAKER) 2.2 mg/dL 1.6-2.6 Specimen slightly (test code = 627) hemolyzed Top Stop Attacher ID - [id number] 21:52:00 Test Item Value Reference Range Interpretation Comments PHOSPHORUS (BEAKER) 4.4 mg/dL 2.3-4.7 Specimen slightly (test code = 604) hemolyzed Top Stop Attacher ID - BSCOMPREHENSIVE METABOLIC [id number] 21:52:00 Test Item Value Reference Range Interpretation [...] S NOT APPLICABLE FOR DIALYSIS PATIEN TS. Top Stop Attacher ID - BSCREATINE KINASE (CK)2021-02-10 21:52:00 Test Item Value Reference Range Interpretation Comments CREATINE KINASE TOTAL (BEAKER) (test 70 U/L 29-200 code = 380) Top Stop Attacher ID - [id number] 21:46:00 Test Item Value Reference Range Interpretation Comments PTT (test code = 66926-8) 30.5 See_Comment [ Automated message] The system WALTOP generated this result transmitted ref erence range: 22.5 - 3 6.0 seconds. The re ference range was not u sed to interpret this result as normal/abnor mal. Lab Interpretation (test Normal code = 20667-4) [facility] CenterLactic acid, [id number] 21:46:00 Test Item Value Reference Range Interpretation Comments Lactate, Venous (test 1.96 mmol/L 0.5-2.2 Specim en code = 2872) markedly hemolyzed SOMMER (test code = SOMMER) Top Stop Attacher ID - BS Lab Interpretation Normal (test code = 86087-8) [facility] CenterAPTT2021-05-19 21:46:00 Test Item Value Reference Range Interpretation Comments PARTIAL THROMBOPLASTIN TIME 30.5 seconds 22.5-36.0 (BEAKER) (test code = 760) LACTIC ACID, [id number] 21:46:00 Test Item Value Reference Range Interpretation Comments LACTATE BLOOD VENOUS 1.96 mmol/L 0.50-2.20 Specime n markedly (2) (BEAKER) (test hemolyzed code = 2872) Top Stop Attacher ID - BSProthrombin time/[id number] 21:45:00 Test Item Value Reference Interpretation Comments [...] valves. Lab Interpretation Normal (test code = 73654-3) [facility] CenterPROTHROMBIN TIME/[id number] 21:45:00 Test Item Value Reference Range Interpretation Comments PROTIME (ARNOL) 12.7 seconds 11.9-14.2 (test code = 759) INR (BEAKER) (test 0.98 See_Comment [Automat ed message] code = 370) The system Infinit h generated this result transmitted ref erence range: <=5.90. The reference range was not used to int erpret this result as normal/abnormal . RECOMMENDED COUMADIN/WARFARIN INR THERAPY RANGESSTANDARD DOSE: 2.0 - 3.0 Includes: PROPHYLAXIS forvenous thrombosis, systemic embolization; TREATMENT for venous thrombosis and/or pulmonary embolus.HIGH RISK: Target INR is 2.5-3.5 for patients with mechanical heart valves.POC-Glucose [id number] 21:39:00 Test Item Value Reference Range Interpretation Comments POC-Glucose Meter (test 93 mg/dL 70-110 : TE STED AT [facility] code = 1538) [address] [facility], [address]: Top Stop Attacher/Techni rhonda ID = [id number] for AILYN JAVIER Lab Interpretation (test Normal code = 23143-8) [facility] CenterPOCT-GLUCOSE [id number] 21:39:00 Test Item Value Reference Range Interpretation Comments POC-GLUCOSE METER 93 mg/dL 70-110 : TESTED A T [facility] 6720 (ARNOL) (test code = [place], 1538) [address]: Top Stop Attacher/Techni rhonda ID = [id number] for GERTRUDE SHAY [id number] 15:45:00 Test Item Value Reference Range Interpretation Comments SURG (test code = SURG) RUN DATE: 09/30/20 [facility] LAB PAGE 1 RUN TIME: 1545 Specimen Inquiry RUN USER: INTERFACE PATIENT: ADAM MARSH LOC: [place] U #: [id number] AGE/SX: 40/F ROOM: RE09/29/20REG DR: Linus Boone MD : [birth year] BED: DIS: STATUS: [facility] TLOC: SPEC #: [id number] RECD: 09/29/20 STATUS: MACIEL DEY #: [id number] WU: 09/29/[address]: Linus Boone MD ENTERED: 09/29/20 SP TYPE: SURG OTHR DR: Svetlana Provider ORDERED: SURG PATH LVL 4 COPIES TO: Linus Boone MD [address] [place] [address] Undefined Provider HISTOLOGY: TISSUE ID BLK PCS DHIRAJ LEV PROCEDURE DISPOSITION ____ ___ ___ ___ STOMACH, NOS A 1 2 PROCEDURES: SURG PATH LVL 4 (09/29/20) TISSUES: A. STOMACH, NOS - GASTRIC BIOPSY CLINICAL HISTORY R10.13, K21.9, K92.0, R14.0, R11.2, R19.7, R19.4 CPT CODES CPT CODE(S): 98563 , , , , , , FINAL DIAGNOSIS Stomach, biopsy: MILD CHRONIC GASTRITIS NEGATIVE FOR INTESTINAL METAPLASIA, DYSPLASIA, OR MALIGNANCY NEGATIVE FOR HELICOBACTER PYLORI ORGANISMS GROSS DESCRIPTION Gastric biopsy. Received in formalin are two wilkinson tissue fragments, 0.4 cm each, all as A. bk/nr Grossing performed at [facility] Pathology, [address] [place] [address], [address], [place] [address]. Nail Specialist: Aditya Hanson M.D. CONTINUED ON NEXT PAGE RUN DATE: 09/30/20 [facility] PAGE 2 RUN TIME: 1545 Specimen Inquiry RUN USER: INTERFACE SPEC #: [id number] PATIENT: ADAM MARSH #[id number] (Continued) MICROSCOPIC DESCRIPTION Gastric biopsy. Sections demonstrate gastric mucosa with mild chronic inflammation. No dysplasia or malignancy is identified. No evidence of Helicobacter pylori organisms or intestinal metaplasia is seen. Signed SIGNATURE ON FILE Hector Issa 09/30/20 1545 END OF REPORT COVID 19 INHOUSE [id number] 13:41:00 Test Item Value Reference Range Interpretation Comments COVID 19 INHOUSE AG NEGATIVE Negative Per marino fulton, (test code = negative result s should CKIXT24DTSG) be treated aspr esumptive and, if inconsi [...] symptoms co nsistent with COVID-19. BASIC METABOLIC [id number] 13:40:00 Test Item Value Reference Range Interpretation [...] MG/DL 8.5-10.1 N - XR CHEST 1 [id number] 13:33:00 [facility] 1980 Sex: F Name: ADAM MARSH [facility] : 05/[birth year] Age/S: 40 / F [address] [place] [address] Unit #: [id number] Loc: [place] [address] Phys: Linus Boone MD Acct: [id number] Dis Date: Status: PRE [facility] PHONE #: [phone] Exam Date: 09/28/2020 1326 FAX #: Reason: PREOP EXAMS: CPT: [id number] XR CHEST 1 V 09253 Fluoro Time: DAP (Gy m2): Air Kerma [...] PAGE 1 Signed Report Name: ADAM MARSH [place] : 1980 Age/S: 40 / F [address] [place] [address] Unit #: [id number] Loc: [place] [address] Phys: Linus Boone MD Acct: [id number] Dis Date: Status: PRE [facility] PHONE #: [phone] Exam Date: 09/28/2020 1323 FAX #: Reason: PREOP EXAMS: CPT: [id number] XR CHEST 1 V 73872 Fluoro Time: DAP (Gy m2): Air Kerma (mGy): <Continued> Technologist: Shari Davila RT(R)(CT) Trnscb Date/Time: 09/28/2020 (7773) 16 Orig Print D/T: S: 09/28/2020 (2027) PAGE 2 SignedReportPROTHROMBIN [id number] 13:29:00 Test Item Value Reference Range Interpretation Comments PT PATIENT (test code = PTP) 10.6 SECONDS 9.3-12.9 N INTERNATIONAL NORMAL RATIO 0.95 INR Unit 0.8-1.2 N (test code = INR) THROMBOPLASTIN TIME [id number] 13:29:00 Test Item Value Reference Range Interpretation Comments THROMBOPLASTIN TIME PARTIAL 28.0 SECONDS 26-35 N (test code = PTT) CBC W/AUTO [id number] 13:26:00 Test Item Value Reference Range Interpretation [...] code NO DIFF/SCN CRITERIA = MDIFF) POCT-GLUCOSE [id number] 10:22:00 Test Item Value Reference Range Interpretation Comments POC-GLUCOSE METER 102 mg/dL 70-110 TESTED AT [facility] 67[address] (ARNOL) (test code = [place] 1538) [address] MR, MRA, BRAIN, WITHOUT [id number] 09:32:00Reason for exam:->Ischemic Stroke EvaluationFINAL REPORT MRA Head CLINICAL HISTORY: Ischemic Stroke TECHNIQUE: MRA of the head utilizing 3-D kiau-zs-iqvbcb technique, with 3-D reconstructions. COMPARISON: None FINDINGS: There is no evidence of intracranial aneurysm, focal stenosis, or major branch vessel occlusion. IMPRESSION: No evidence for a major [place] proximal branch vessel occlusion. MRA Neck CLINICAL HISTORY: Ischemic Stroke TECHNIQUE: MRA of the neck utilizing 2-D and 3-D cemd-qh-tfmcea technique, with 3-D reconstructions. COMPARISON: None FINDINGS: The carotid arteries in the neck are patent including their bifurcations. There is antegrade flow in the vertebral arteries in the neck. IMPRESSION: No evidence of hemodynamically significant stenosis in the cervical carotid or vertebral arteries by NASCET criteria. Signed: Santos Winn MDReport Verified Date/Time: 08/21/2018 09:32:09 Reading Location: [facility] C013V Neuro Reading Room MR, MRA, NECK, WITHOUT IV [id number] 09:32:00Reason for exam:->Ischemic Stroke EvaluationFINAL REPORT MRA Head CLINICAL HISTORY: Ischemic Stroke TECHNIQUE: MRA of the head utilizing 3-D ajze-sm-wakfmm technique, with 3-D reconstructions. COMPARISON: None FINDINGS: There is no evidence of intracranial aneurysm, focal stenosis, or major branch vessel occlusion. IMPRESSION: No evidence for a major [place] proximal branch vessel occlusion. MRA Neck CLINICAL HISTORY: Ischemic Stroke TECHNIQUE: MRA of the neck utilizing 2-D and 3-D fizz-me-wplvkf technique, with 3-D reconstructions. COMPARISON: None FINDINGS: The carotid arteries in the neck are patent including their bifurcations. There is antegrade flow in the vertebral arteries in the neck. IMPRESSION: No evidence of hemodynamically significant stenosis in the cervical carotid or vertebral arteries by NASCET criteria. Signed: Santos Winn Verified Date/Time: 08/21/2018 09:32:09 Reading Location: [address] Reading Room MR, BRAIN, WITHOUT [id number] 09:25:00Reason for exam:- >Ischemic Stroke EvaluationFINAL REPORT [...] Winn Verified Date/Time: 08/21/2018 09:25:25 Reading Location: [address] Neuro eading Room POCT-GLUCOSE [id number] 21:26:00 Test Item Value Reference Range Interpretation Comments POC-GLUCOSE METER 119 mg/dL 70-110 H TEST[facility] AT [place] [address] [facility] (test code = AYLIN [facility] 1538) [address] POCT-GLUCOSE [id number] 18:03:00 Test Item Value Reference Range Interpretation Comments POC-GLUCOSE METER 119 mg/dL 70-110 H TESTED AT [place] [address] ([facility]) (test code = AYLIN [place] [facility] 1538) [address] POCT-GLUCOSE [id number] 12:39:00 Test Item Value Reference Range Interpretation Comments POC-GLUCOSE METER 120 mg/dL 70-110 H TESTED AT [place] [address] ([facility]) (test code = AYLIN Rivera [facility] 1538) [address] RAD, CHEST, 1 VIEW, NON [id number] 12:04:00Reason for exam:->To Locate Heart Device (Pacemaker)Should [...] MDReport Verified Date/Time: 08/20/2018 12:04:06 Reading Location: [facility] Radiology Reading Room POCT-GLUCOSE [id number] 09:17:00 Test Item Value Reference Range Interpretation Comments POC-GLUCOSE METER 121 mg/dL 70-110 H TESTED AT [place] [address] ([facility] (test code = AYLIN Rivera [facility] 1538) [address] BASIC METABOLIC [id number] 06:56:00 Test Item Value Reference Range Interpretation [...] NOT APPLICABLE FOR DIALYSIS PATIEN TS. POCT-GLUCOSE [id number] 21:09:00 Test Item Value Reference Range Interpretation Comments POC-GLUCOSE METER 109 mg/dL 70-110 TESTED AT [place] [address] ([facility] (test code = AYLIN Rivera [facility] 1538) [address] POCT-GLUCOSE [id number] 17:15:00 Test Item Value Reference Range Interpretation Comments POC-GLUCOSE METER 117 mg/dL 70-110 H TESTED AT [place] [address] ([facility]) (test code = [facility] 1538) [address] VITAMIN B12 AND [id number] 06:39:00 Test Item Value Reference Range Interpretation Comments VITAMIN B12 (BEAKER) (test code = 524 pg/mL 213-816 774) FOLATE (BEAKER) (test code = 362) 13.5 ng/mL >=7.0 BASIC METABOLIC [id number] 05:48:00 Test Item Value Reference Range Interpretation Comments SODIUM (BEAKER) 139 meq/L 136-145 (test code = 381) POTASSIUM (BEAKER) 4.0 meq/L 3.5-5.1 (test code = 379) CHLORIDE (BEAKER) 107 meq/L 98-107 (test code = 382) CO2 (BEAKER) (test 24 meq/L code = 355) BLOOD UREA NITROGEN 11 [...] S NOT APPLICABLE FOR DIALYSIS PATIEN TS. [id number] 15:42:00 Test Item Value Reference Range Interpretation Comments RPR SCREEN (BEAKER) (test code = Nonreactive Nonreactive 420) HEMOGLOBIN [id number] 09:14:00 Test Item Value Reference Range Interpretation Comments HEMOGLOBIN A1C (BEAKER) (test code = 5.3 % 4.3-6.1 368) TSH/FREE T4 IF [id number] 04:49:00 Test Item Value Reference Range Interpretation Comments THYROID STIMULATING HORMONE 3.18 uIU/mL 0.35-4.94 (BEAKER) (test code = 772) BASIC METABOLIC [id number] 04:38:00 Test Item Value Reference Range Interpretation [...] NOT APPLICABLE FOR DIALYSIS PATIEN TS. LIPID [id number] 04:38:00 Test Item Value Reference Range Interpretation [...] 130-159 High 160-189 Very High >=190HEPATIC FUNCTION [id number] 04:38:00 Test Item Value Reference Range Interpretation [...] (test code = 413) AFB Culture and [id number] 13:24:00Specimen/Source: Wound/PACEMAKERCollected: 09/05/2017 19:45 Status: Final Last Updated: 11/01/2017 13:24 NAY-Tsgnh-Uzvlpfirfmks (Final) (Final) 09/07/17 No acid fast bacill seen on direct smear Culture Result (Final) (Final) 11/01/17 No growth of AFB at six (6) weeksFungus Culture with [id number] 12:12:00 Specimen/Source: Wound/PACEMAKERCollected: 09/05/2017 19:45 Status: Final Last Updated: 10/22/2017 12:12 Fungal Smear Result (Final) (Final) 09/06/17 No yeast or hyphae seen Culture Result (Final) (Final) 10/22/17 No fungus isolated at 6 weeksCulture, Blood [id number] 08:23:00Specimen: BloodCollected: 09/04/2017 20:30 Status: Final Last Updated: 09/10/2017 08:23 Culture Result (Final) (Final) No Growth After 5 DaysCulture, Blood [id number] 08:23:00Specimen: BloodCollected: 09/04/2017 20:15 Status: Final Last Updated: 09/10/2017 08:23 Culture Result (Final) (Final) No Growth After 5 DaysCulture, Wound [id number] 08:52:00Specimen: WoundCollected: 09/05/2017 19:45 Status: Final Last Updated: 09/08/2017 08:52 Gram Stain (Final) (Final) 09/06/17 No organisms seen, Few WBC's Culture Result (Final) (Final) 09/08/17 Anaerobic culture:No anaerobes isolated at 3 days Isolate (Final) (Final) 09/07/17Few Staph-coag positive Isolate Staph-coag positive JERMAINE (mcg/ml) Amoxicillin/Clav (AUG)<=4/2 Susceptible Ampicillin (AM) >8 Resistant Ampicillin/Sulb (A/S) <=8/4 Susceptible Cefazolin (CFZ) <=4 Susceptible Ceftriaxone (BOTTLE LABELER) <=4 Susceptible Chloramphenicol (C) <=8 Susceptible Ciprofloxacin (CP) <=1 Susceptible Clindamycin (CM) 0.5 Susceptible Erythromycin (E) <=0.25 Susceptible Gentamicin (GM) <=1 Susceptible Imipenem (IMP) <=4 Susceptible Levofloxacin (LEV) <=0.5 Susceptible Linezolid (LNZ) 4 Susceptible Oxacillin (OX1) 0.5 Susceptible Penicillin (P) >8 Resistant Rifampin (RA) <=1 Susceptible Tetracycline (TE) <=1 Susceptible Trimethoprim/Sulfa <=0.5/9.Susceptible (SXT) 5 Vancomycin (VA) 2 SusceptibleRenal [id number] 08:51:00 Test Item Value Reference Range Interpretation [...] National Kidney Foundation,[email or web address] :[email or web address] [email or web address] CBC with [id number] 07:39:00 Test Item Value Reference Range Interpretation [...] code = ALYMPH) 1.7 K/cumm 0.5-4.6 N Schleicher Abs (test code = AMONO) 0.3 K/cumm 0.0-1.2 N Eos Abs (test code = AEOS) 0.29 K/cumm 0.00-0.74 N Baso Abs (test code = ABASO) 0.0 K/cumm 0.00-0.21 N Vancomycin, [id number] 12:33:00 Test Item Value Reference Range Interpretation Comments Ghazal Trou (test code = VANTR) 7.9 ug/mL 10.0-20.0 L Magnesium, [id number] 06:37:00 Test Item Value Reference Range Interpretation Comments Magnesium (test code = MG) 2.4 mg/dL 1.7-2.5 N Renal [id number] 06:29:00 Test Item Value Reference Range Interpretation [...] National Kidney Foundation,http :[email or web address] ep.[email or web address] BHCG, Serum, [id number] 06:26:00 Test Item Value Reference Range Interpretation Comments Preg Qual [Se] (test code = BSHCG) Negative Negative N CBC with [id number] 06:24:00 Test Item Value Reference Range Interpretation [...] code = ALYMPH) 1.6 K/cumm 0.5-4.6 N Schleicher Abs (test code = AMONO) 0.4 K/cumm 0.0-1.2 N Eos Abs (test code = AEOS) 0.18 K/cumm 0.00-0.74 N Baso Abs (test code = ABASO) 0.0 K/cumm 0.00-0.21 N XR CHEST 1 [id number] 16:29:55XR CHEST 1 VIEWLOCATION: [id number]: None.INDICATION: REVIEW PICC LINE PLACEMENTDISCUSSION:AP chest and [...] = TSH) 3.44 mIU/mL 0.270-4.200 N Lipid [id number] 05:47:00 Test Item Value Reference Range Interpretation Comments Cholesterol (test 160 mg/dL 0-200 N code = CHOL) Triglycerides (test 126 mg/dL 9-200 N code = TRIG) HDL (test code = 35 mg/dL 50-60 L HDL) Chol/HDL (test code 4.6 Ratio 0.0-4.4 H = CHOLPHDL) LDL, Calculated 100 0-130 N (NOTE)RISK O F HEART (test code = LDLC) DISEASEPu blished by [place] Heart AssociationAnal yte Optim al Boderline Increased RiskC HOL <200 200-239 >240TRI G <150 150-199 >200HDL Male: >60 <40HDL Female: >60 <50 LDL < 100 130-15 9 >160 LDL NEAR OPTIMAL IS 100- 129 VLDL (test code = 25 mg/dL 5-40 N VLDL) LDL/HDL (test code = 3 LDLPHDL) Basic Metabolic [id number] 05:47:00 Test Item Value Reference Range Interpretation [...] (es timated code = GFR) mL/min/1.73m2 Glomerular [place] tration Rate) is an est imated value,calculate [...] the National Kidney Foundation,http ://nkd ep.nih.gov Magnesium, [id number] 05:47:00 Test Item Value Reference Range Interpretation Comments Magnesium (test code = MG) 2.3 mg/dL 1.7-2.5 N CBC with [id number] 05:36:00 Test Item Value Reference Range Interpretation [...] code = ALYMPH) 2.2 K/cumm 0.5-4.6 N Schleicher Abs (test code = AMONO) 0.3 K/cumm 0.0-1.2 N Eos Abs (test code = AEOS) 0.24 K/cumm 0.00-0.74 N Baso Abs (test code = ABASO) 0.0 K/cumm 0.00-0.21 N Partial Thromboplastin [id number] 21:26:00 Test Item Value Reference Range Interpretation Comments aPTT (test code = PTT) 29.00 seconds 24.39-37.25 N Prothrombin [id number] 21:26:00 Test Item Value Reference Range Interpretation Comments PT (test code = PT) 10.70 seconds 9.78-13.35 N INR (test code = INR) 0.95 Ratio 0.6-1.2 N Comprehensive Metabolic [id number] 21:23:00 Test Item Value Reference Range Interpretation [...] National Kidney Foundation,http ://nkd ep.nih.gov CBC with [id number] 21:16:00 Test Item Value Reference Range Interpretation [...] code = ALYMPH) 2.2 K/cumm 0.5-4.6 N Schleicher Abs (test code = AMONO) 0.4 K/cumm 0.0-1.2 N Eos Abs (test code = AEOS) 0.17 K/cumm 0.00-0.74 N Baso Abs (test code = ABASO) 0.1 K/cumm 0.00-0.21 N
--- NOTE | 2022-03-03 01:44 | EDPHYS ---
Physician Documentation [facility] Name: Jenni Draper Age: 41 yrs Sex: Female : 1980 Arrival Date: 03/03/2022 Time: 00:15 Bed 4 Private MD: ED Physician Tanner Robbins HPI: 03/03 00:52 This 41 yrs old Female presents to ER via Wheelchair with complaints of Fall Injury. rn 00:52 Details of fall: The patient fell from an upright position. Onset: The symptoms/episode rn began/occurred just prior to arrival. Associated injuries: The patient sustained left leg/foot. Severity of symptoms: At their worst the symptoms were moderate, in the emergency department the symptoms have improved. The patient has experienced similar episodes in the past. The patient has not recently seen a physician. Pt reports slipped getting out of tub, struck left lower leg on edge of tub, reports pain to mid left fibular region, left ankle pain, and left foot pain.No head injury. No pain elsewhere.. 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 N/A - Hysterectomy vc1 Historical: - Allergies: 00:51 Adhesives; vc1 00:51 Aspirin; vc1 00:51 Bactrim; vc1 00:51 Benadryl; vc1 00:51 Cipro IV; vc1 00:51 Clindamycin; vc1 00:51 coconut oil; vc1 00:51 Detrol; vc1 00:51 Diltiazem; vc1 00:51 Doxycycline; vc1 00:51 FISH PRODUCT DERIVATIVES; vc1 00:51 GABAPENTIN; vc1 00:51 Iodine; vc1 00:51 ivabradine; vc1 00:51 Latex, Natural Rubber; vc1 00:51 Morphine; vc1 00:51 PENICILLINS; vc1 00:51 tramadol; vc1 - Home Meds: 00:53 apixaban 5 mg Oral tab 1 tab 2 times per day [Active]; vc1 - PMHx: 00:51 Asthma; TIA; Seizure; Depression; Migraine; DVT; CVA; Atrial fibrillation; Hypertensive vc1 disorder; - PSHx: 00:51 Cholecystectomy; left shoulder; Ligation of fallopian tube; pace maker placement; right vc1 hand cyst removal; - Immunization history:: Adult Immunizations up to date. - Social history:: Smoking status: Patient denies any tobacco usage or history of. - Immunization history: Last tetanus immunization: - up to date. - Family history:: not pertinent. - Hospitalizations: : No recent hospitalization is reported. ROS: 00:52 Neck: Negative for injury, pain, and swelling, Cardiovascular: Negative for chest pain, rn palpitations, and edema, Respiratory: Negative for shortness of breath, cough, wheezing, and pleuritic chest pain, Abdomen/GI: Negative for abdominal pain, nausea, vomiting, diarrhea, and constipation, MS/Extremity: + LLE injury and pain Skin: + bruising to left lower leg Neuro: Negative for headache, weakness, numbness, tingling, and seizure. Exam: 00:52 Constitutional: This is a well developed, well nourished patient who is awake, alert, rn and in no acute distress. Head/Face: Normocephalic, atraumatic. MS/ Extremity: Pulses equal, no cyanosis. Neurovascular intact. + mild tenderness left mid fibular region with ecchymosis, + tenderness medial malleolus, and mid-dorsum of left foot. No open wounds. Vital Signs: 00:47 BP 111 / 79; Pulse 84; Resp 16; Temp 98.2; Pulse Ox 97% on R/A; Weight 56.7 kg; Height vc1 4 ft. 11 in. (149.86 cm); Pain 7/10; 01:06 Pulse 86; Resp 18; Pulse Ox 99% on R/A; Pain 8/10; tw5 01:06 BP 130 / 83; tw5 01:44 BP 122 / 86; Pulse 88; Resp 18 S; Pulse Ox 100% on R/A; as6 00:47 Body Mass Index 25.25 (56.70 kg, 149.86 cm) vc1 [place] Coma Score: 01:04 Eye Response: spontaneous(4). Verbal Response: oriented(5). Motor Response: obeys tw5 commands(6). Total: 15. Trauma Score (Adult): 01:04 Eye Response: spontaneous(1); Verbal Response: oriented(1); Motor Response: obeys tw5 commands(2); Systolic BP: > 89 mm Hg(4); Respiratory Rate: 10 to 29 per min(4); Kvng Score: 15; Trauma Score: 12 MDM: 00:16 Patient medically screened. rn 01:43 Differential diagnosis: contusion, fracture, sprain, strain. Data reviewed: vital rn signs, nurses notes, radiologic studies, plain films, and as a result, I will discharge patient. Counseling: I had a detailed discussion with the patient and/or guardian regarding: the historical points, exam findings, and any diagnostic results supporting the discharge/admit diagnosis, radiology results, the need for outpatient follow up, to return to the emergency department if symptoms worsen or persist or if there are any questions or concerns that arise at home. Response to treatment: the patient's symptoms have mildly improved after treatment, and as a result, I will discharge patient. Special discussion: I discussed with the patient/guardian in detail that at this point there is no indication for admission to the hospital. It is understood, however, that if the symptoms persist or worsen the patient needs to return immediately for re-evaluation. ED course: No acute findings on xrays of LLE. Will dc home with soft tissue injury and bruising.. 03/03 00:43 Order name: XRAY Tib Fib LEFT rn 03/03 00:43 Order name: XRAY Ankle LEFT 3 view rn 03/03 00:43 Order name: XRAY Foot LEFT 3 View rn 03/03 01:49 Order name: [place] Wrap; Complete Time: 01:54 rn Administered Medications: 01:49 CANCELLED (Duplicate Order): [place] (HYDROcodone-acetaminophen) 10 mg-325 mg 1 tabs PO as6 once 01:54 Drug: [place] (HYDROcodone-acetaminophen) 10 mg-325 mg 1 tabs Route: PO; as6 01:55 Follow up: Response: No adverse reaction; RASS: Alert and Calm (0) as6 Disposition Summary: 03/03/22 01:44 Discharge Ordered Location: Home rn Problem: new rn Symptoms: have improved rn Condition: Stable rn Diagnosis - Contusion of left lower leg rn Followup: rn - With: Private Physician - When: As needed - Reason: Recheck today's complaints, Re-evaluation by your physician Discharge Instructions: - Discharge Summary Sheet rn - Contusion rn Forms: - Medication Reconciliation Form rn - Thank You Letter rn - Antibiotic project coordinator rn - Prescription Opioid Use rn Signatures: Dispatcher [employer] EDTanner Carpenter MD MD rn Wood, Tiffany tw5 Román Bell RN RN as6 Louann Dillard RN RN vc1 Corrections: (The following items were deleted from the chart) 01:49 01:49 [place] (HYDROcodone-acetaminophen) 10 mg-325 mg 1 tabs PO once ordered. as6 as6
--- NOTE | 2022-03-03 01:44 | ER ---
Nurse's Notes [facility] Name: Jenni Darper Age: 41 yrs Sex: Female : 1980 Arrival Date: 03/03/2022 Time: 00:15 Bed 4 Private MD: Diagnosis: Contusion of left lower leg Presentation: 03/03 00:44 Chief complaint: Patient states: " I fell getting out of the bathtub. My left foot and vc1 leg hurts.". Care prior to arrival: None. Mechanism of Injury: Fall from standing position. an unknown distance. 00:44 Acuity: LYUBOV 3 vc1 00:44 Method Of Arrival: Wheelchair vc1 00:47 Coronavirus screen: Vaccine status: Patient reports receiving the 2nd dose of the covid vc1 vaccine. Moderna At this time, the client does not indicate any symptoms associated with coronavirus-19. Ebola Screen: No symptoms or risks identified at this time. Initial Sepsis Screen: Does the patient meet any 2 criteria? No. Patient's initial sepsis screen is negative. Does the patient have a suspected source of infection? No. Patient's initial sepsis screen is negative. Risk Assessment: Do you want to hurt yourself or someone else? Patient reports no desire to harm self or others. Onset of symptoms was March 03, 2022. 01:55 Trauma event details: Injury occurred in the [facility], Injury occurred: at as6 home. 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 LMP N/A - Hysterectomy vc1 Trauma Activation: Not Applicable Physician: ED Physician; Name: ; Notified At: ; Arrived At: Physician: General Surgeon; Name: ; Notified At: ; Arrived At: Physician: Radiology; Name: ; Notified At: ; Arrived At: Physician: Respiratory; Name: ; Notified At: ; Arrived At: Physician: Lab; Name: ; Notified At: ; Arrived At: Historical: - Allergies: 00:51 Adhesives; vc1 00:51 Aspirin; vc1 00:51 Bactrim; vc1 00:51 Benadryl; vc1 00:51 Cipro IV; vc1 00:51 Clindamycin; vc1 00:51 coconut oil; vc1 00:51 Detrol; vc1 00:51 Diltiazem; vc1 00:51 Doxycycline; vc1 00:51 FISH PRODUCT DERIVATIVES; vc1 00:51 GABAPENTIN; vc1 00:51 Iodine; vc1 00:51 ivabradine; vc1 00:51 Latex, Natural Rubber; vc1 00:51 Morphine; vc1 00:51 PENICILLINS; vc1 00:51 tramadol; vc1 - Home Meds: 00:53 apixaban 5 mg Oral tab 1 tab 2 times per day [Active]; vc1 - PMHx: 00:51 Asthma; TIA; Seizure; Depression; Migraine; DVT; CVA; Atrial fibrillation; Hypertensive vc1 disorder; - PSHx: 00:51 Cholecystectomy; left shoulder; Ligation of fallopian tube; pace maker placement; right vc1 hand cyst removal; - Immunization history:: Adult Immunizations up to date. - Social history:: Smoking status: Patient denies any tobacco usage or history of. - Immunization history: Last tetanus immunization: - up to date. - Family history:: not pertinent. - Hospitalizations: : No recent hospitalization is reported. Screenin:53 Abuse screen: Denies threats or abuse. Nutritional screening: No deficits noted. vc1 Tuberculosis screening: No symptoms or risk factors identified. Fall Risk None identified. Primary Survey: 00:53 NO uncontrolled hemorrhage observed. Breathing/Chest: Spontaneous respiratory effort, vc1 equal unlabored respirations, breath sounds clear bilaterally, regular pattern, symmetrical chest rise and fall. Circulation: No external hemorrhage present. Regular and strong central pulse, skin warm/dry/normal color. Disability Client is alert. Exposure/Environment: All clothing and personal items were removed. Forensic evidence collection is not deemed to be indicated at this time. Items placed in patient belonging bag. There is no evidence of uncontrolled external bleeding. Obvious injury(ies) are noted at this time: bruising to left leg and foot A warming method has been applied: A warm blanket has been provided to the patient. 01:05 Reassessment Breathing: Spontaneous respiratory effort, equal unlabored respirations, tw5 breath sounds clear bilaterally, regular pattern with symmetrical chest rise and fall. Secondary Survey: 01:05 Gastrointestinal: No deficits noted. tw5 Assessment: 00:44 General: Appears uncomfortable, Behavior is calm, cooperative, appropriate for age. vc1 Pain: Complains of pain in left lateral malleolus, dorsum of left foot and left briggs Pain does not radiate. Pain currently is 7 out of 10 on a pain scale. Neuro: Level of Consciousness is awake, alert, obeys commands, Oriented to person, place, time, situation, Appropriate for age. EENT: No deficits noted. Cardiovascular: No deficits noted. Respiratory: Airway is patent Respiratory effort is even, unlabored, Respiratory pattern is regular, symmetrical. GI: No deficits noted. : No deficits noted. Derm: Bruising that is brown. Musculoskeletal: Reports weakness in left foot. 01:05 General: Reports "I fell getting out of the shower.". Pain: Complains of pain in left tw5 briggs, anterior aspect of left ankle and dorsum of left foot. Vital Signs: 00:47 BP 111 / 79; Pulse 84; Resp 16; Temp 98.2; Pulse Ox 97% on R/A; Weight 56.7 kg; Height vc1 4 ft. 11 in. (149.86 cm); Pain 7/10; 01:06 Pulse 86; Resp 18; Pulse Ox 99% on R/A; Pain 8/10; tw5 01:06 BP 130 / 83; tw5 01:44 BP 122 / 86; Pulse 88; Resp 18 S; Pulse Ox 100% on R/A; as6 00:47 Body Mass Index 25.25 (56.70 kg, 149.86 cm) vc1 [place] Coma Score: 01:04 Eye Response: spontaneous(4). Verbal Response: oriented(5). Motor Response: obeys tw5 commands(6). Total: 15. Trauma Score (Adult): 01:04 Eye Response: spontaneous(1); Verbal Response: oriented(1); Motor Response: obeys tw5 commands(2); Systolic BP: > 89 mm Hg(4); Respiratory Rate: 10 to 29 per min(4); Kvng Score: 15; Trauma Score: 12 ED Course: 00:15 Patient arrived in ED. ja2 00:16 Tanner Robbins MD is Attending Physician. rn 00:46 Triage completed. vc1 00:52 Arm band placed on right wrist. vc1 01:02 Román Bell, LAUREL is Primary Nurse. as6 01:04 Patient has correct armband on for positive identification. tw5 01:04 No provider procedures requiring assistance completed. tw5 01:06 Patient maintains SpO2 saturation greater than 95% on room air. tw5 01:06 Thermoregulation: warm blanket given to patient. tw5 01:08 Ice pack to injury. tw5 01:20 XRAY Ankle LEFT 3 view In Process Unspecified. EDMS 01:20 XRAY Foot LEFT 3 View In Process Unspecified. EDMS 01:20 XRAY Tib Fib LEFT In Process Unspecified. EDMS 01:54 Patient did not have IV access during this emergency room visit. Yois wrap to left foot as6 and left briggs. Administered Medications: 01:49 CANCELLED (Duplicate Order): [place] (HYDROcodone-acetaminophen) 10 mg-325 mg 1 tabs PO as6 once 01:54 Drug: [place] (HYDROcodone-acetaminophen) 10 mg-325 mg 1 tabs Route: PO; as6 01:55 Follow up: Response: No adverse reaction; RASS: Alert and Calm (0) as6 Medication: 01:06 VIS not applicable for this client. tw5 Intake: 01:04 PO: 0ml; Total: 0ml. tw5 Output: 01:04 Urine: 0ml; Total: 0ml. tw5 Outcome: 01:44 Discharge ordered by . rn 01:54 Discharged to home via wheelchair, with significant other. as6 01:54 Condition: stable 01:54 Discharge instructions given to patient, significant other, Instructed on discharge instructions, follow up and referral plans. Demonstrated understanding of instructions, follow-up care. 01:55 Patient's length of stay was not longer than 2 hours. as6 01:56 Patient left the ED. as6 Signatures: Dispatcher [employer] EDIN Tanner Robbins MD MD rn Alexander, Jessica ja2 Wood, Tiffany tw5 Román Bell RN RN as6 Louann Dillard RN RN vc1
[2022-03-03] MEDS ORDERED: HYDROCODONE/APAP 10/325 TAB ONE (01:55)
[2022-03-03 02:04] VITALS: TEMP 98.2
[2022-03-03 02:11] VITALS: BP 122/86; O2SAT 100
--- NOTE | 2022-03-03 11:20 | RAD REPORT ---
EXAM DESCRIPTION: RAD - Ankle Left 3 View - 03/03/2022 1:18 am CLINICAL HISTORY: 41 years, Female, PAIN COMPARISON: None. FINDINGS: 3 X-ray views of the left ankle (frontal, lateral and oblique views) were performed. There is no evidence for fracture or dislocation. The ankle mortise is intact. There is no signif icant joint effusion. There are no gross intraosseous lesions. No gross soft tissue abnormality i s demonstrated. IMPRESSION: Unremarkable left ankle. Electronically signed by: Edward Joya MD 03/03/2022 1:36 AM CDT Due to temporary technical issues with the PACS/Fluency reporting system, reports are being signed by the in house radiologists without review as a courtesy to insure prompt reporting. The interpreting radiologist is fully responsible for the content of the report.
--- NOTE | 2022-03-03 11:45 | RAD REPORT ---
EXAM DESCRIPTION: RAD - Tib Fib Left - 03/03/2022 1:18 am CLINICAL HISTORY: 41 years, Female, injury COMPARISON: None. FINDINGS: 2 X-ray views of the left tibia and fibula (frontal and lateral views) were performed. No acute bony injuries were demonstrated. No gross soft tissue abnormality is identified. There a re no gross intraosseous lesions. No periosteal reaction were seen. IMPRESSION: No acute bony injuries were demonstrated. Electronically signed by: Edward Joya MD 03/03/2022 1:38 AM CDT Due to temporary technical issues with the PACS/Fluency reporting system, reports are being signed by the in house radiologists without review as a courtesy to insure prompt reporting. The interpreting radiologist is fully responsible for the content of the report.
--- NOTE | 2022-03-03 11:55 | RAD REPORT ---
EXAM DESCRIPTION: RAD - Foot Left 3 View - 03/03/2022 1:18 am CLINICAL HISTORY: 41 years, Female, fall getting out of bathtub COMPARISON: None. FINDINGS: 3 X-ray views of the left foot (Frontal, lateral and oblique views) were performed. No acute bony injuries were demonstrated. No gross articular or soft tissue abnormality is identifi ed. There are no gross intraosseous lesions. No periosteal reaction were seen. IMPRESSION: No acute bony injuries were demonstrated. Electronically signed by: Edward Joya MD 03/03/2022 1:38 AM CDT Due to temporary technical issues with the PACS/Fluency reporting system, reports are being signed by the in house radiologists without review as a courtesy to insure prompt reporting. The interpreting radiologist is fully responsible for the content of the report.
== END 2022-03-03 01:56 | disposition home or self-care (01) ==
LOC: ER 00:13
DX: S80.12XA Contusion of left lower leg, initial encounter (principal); I10 Essential (primary) hypertension; Z88.0 Allergy status to penicillin; Z88.1 Allergy status to other antibiotic agents; Z88.2 Allergy status to sulfonamides; Z88.3 Allergy status to other anti-infective agents; Z88.5 Allergy status to narcotic agent; Z88.6 Allergy status to analgesic agent; Z88.8 Allergy status to other drugs, medicaments and biological substances; Z91.013 Allergy to seafood; Z91.018 Allergy to other foods; Z91.040 Latex allergy status; Z91.048 Other nonmedicinal substance allergy status
CPT/HCPCS: 99284

== ENCOUNTER 2022-03-08 01:06 | Emergency (ER) | payer OTHER ==
--- OUTSIDE RECORDS SUMMARY | 2022-03-08 01:14 | XMS REPORT | Continuity of Care Document ---
:1980 Author Organization [facility] t Address [address] [place] [address] Care Team Providers Name Role Phone MIMA [...] Expiration Source Date Date GENERIC MEDICAID HMO [id number] 2011 00:00:00 [facility] [id number] 2011 [facility]ICA[facility] 00:00:[facility] [id number] 2011 Met panda STAR+PLUS [id number] PresentO SOLORIO [id number] 2018 [facility] MEDICAIDMEDICAID 00:00:00 Medical [id number] 018-Present Problems Condition Condition Condition Status Onset Resolution Last Treating Co mments Source Name Details Category Date Date Treatment Clinician Date History of History of Disease Active U nivers DVT (deep DVT (deep 4-11 ity of vein vein 00:00: [place] thrombosis thrombosis 00 [place] dical ) ) Branch Palpitatio Palpitatio Disease Active U nivers ns ns 4-11 ity of 00:00: [place] 00 Medical Branch Elevated Elevated Disease Active Unive rs d-dimer d-dimer 7- ity of 00:00: [place] 00 Medical Branch Left-sided Left-sided Disease Active [facility] weakness [facility]12 [facility] Received Received Disease [facility] plasminoge plasminoge [facility]: [place] 00 Center activator activator (t-PA) (t-PA) less than less than 24 hours 24 hours prior to prior to arrival arrival Acute Acute Disease Active 2021-[address] [facility] [facility] ischemic ischemic 5-20 [facility] stroke stroke 00:00: Medical 00 [place] Chest pain Chest pain Disease Active [facility] in adult in adult 4-20 [facility] 00:00: Medical 00 [place] Atypical Atypical Disease Active Unive rs chest [...] Active 2019- Univers 2-04 ity of 00:00: [place] 00 [facility] PVT PVT Disease Active Univers (paroxysma (paroxysma 2-04 it y of l l 00:00: [place] ventricula ventricula 00 Me dical r r Branch tachycardi tachycardi a) a) Digoxin Digoxin Disease Active Univers toxicity toxicity 2-04 ity of 00:00: [place] 00 [facility] Atrial Atrial Disease Active Univers fibrillati fibrillati 2-04 it y of on on 00:00: [place] [facility] Branch Seizure Seizure Disease Active 2019 Univers disorder disorder 2-01 ity of 00:00: [place] 00 [facility] AN AN Disease Active 2019 Univers (dyspnea (dyspnea 2-01 ity of on on 00:00: [place] exertion) exertion) [address] [facility] Mitral Mitral Disease Active 2019 Univers valve valve 8-05 ity of regurgitat regurgitat [place] ion 00 [facility] Excessive Excessive Disease Active 2019 Uni vers anticoagul anticoagul 8-05 it y of ation ation 00:00: [place] 00 [facility] Branch Deep vein Deep vein Disease Active 2019 Uni vers thrombosis thrombosis 8-05 it y of of lower of lower 00:00: [place] extremity extremity [address] [facility] Anxiety Anxiety Disease Active 2019- Univers disorder disorder 8-05 ity of 00:00: [place] 00 [facility] Branch Asthma Asthma Disease Active 2019- Univers 8-05 ity of 00:00: [place] 00 [facility] Branch E44.0 E44.0 Disease Active 2019-0 [...] of anemia, anemia, 00:00: g of this [place] unspecifie unspecifie 00 note Me dical d iron d iron might be Branch deficiency deficiency different anemia anemia from the type type original. Added automatic ally from request for surgery [id number] Abdominal Abdominal Disease Active 2017-09 Overview: Univers pain, pain, 0-19 Formattin ity of unspecifie unspecifie 00:00: g of this [place] d d 00 note Medical abdominal abdominal might be Br anch location location different from the original. Added automatic ally from request for surgery [id number] Nausea and Nausea and Disease Active 2017-09 Overview : Univers vomiting, vomiting, 0-19 Formattin i ty of intractabi intractabi 00:00: g of this [place] lity of lity of 00 note Medical vomiting vomiting might be Bran ch not not different specified, specified, from the unspecifie unspecifie original. d vomiting d vomiting Added type type automatic ally from request for surgery [id number] Non-cardia Non-cardia Disease Active U jayden c [...] different from the original. 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 ICD10 Diagnosis Term Computer Application Developer Utility Cerebrovas Cerebrovas Disease Resolve 2021-02-12 2021-02-12 [...] [facility] prim 1-04 [place] 00:00: d 00 [facility] ciproflo DA Active SV 2020-0 [facility] xacin 1-04 [place] 00:00: d 00 [facility] Center adhesive DA Active SV 2020-0 [facility] tape 1-04 [place] 00:00: d 00 Medical Center tramadol DA Active SV 1-0 [facility] 1-04 [place] 00:00: d 00 [facility] gabapent DA Active SV 1-0 [...] [place] mide 00:00: d Antibiot 00 [facility]) Center Fish FA Active SV [...] [facility] stephan 1-04 [place] 00:00: d 00 [facility] sulfamet DA Active MO [...] quetiapi DA Active MO RASH [facility] ne 1- [place] 00:00: d 00 [facility] Center tolterod DA Active MO RASH [facility] ine -04 [place] 00:00: d 00 [facility] latex DA Active SV BLISTERS [facility] 1-04 [place] 00:00: d 00 Medical Center ivabradi DA Active MO RASH [facility] ne -04 [place] 00:00: d 00 [facility] coconut FA Active MO RASH [facility] 1-04 [place] 00:00: d 00 [facility] Topirawy Propensi Active Anaphylaxis 2019-0 M ethodi te [...] Shortness Of Methodi m ty to Breath 905 st adverse 00:00: Hospita reaction 00 l s to drug DILTIAZE DRUG Active Med SOB Univers M INGREDI 05-30 ity of 00:00: [place] 00 Medical Branch Diltiaze Propensi Active Shortness of Univers m ty to Breath 9-05 ity of adverse 00:00: [place] reaction 00 Medical s Branch Cephalex Propensi Active Anaphylaxis 2019-0 M ethodi in ty to 05 st adverse 00:00: Hospita reaction 00 l s to drug Doxycycl Propensi Active Rash 2019-0 Method i ine ty to 05 st adverse 00:00: Hospita reaction 00 l s to drug FISH Drug Active High Anaphylaxis 2019-0 Unive rs CONTAINI Class 805 ity of NG 00:00: [place] PRODUCTS 00 Medical Branch DOXYCYCL DRUG Active Rash 2019-0 Univers INE INGREDI 805 ity of 00:00: [place] 00 Medical Branch Levoflox Propensi Active Anaphylaxis 2019-0 M ethodi acin ty to 05 st adverse 00:00: Hospita reaction 00 l s to drug CEFIXIME DRUG Active Low Rash 2019-0 Univers [...] 00 allergic Medi blane s reaction. Branch CEFIXIME Allergy Active Low Rash 2017-09 [facility] 10-17 00:00: 00 TRAMADOL Allergy Active Low Rash 2017-09 [facility] 10-17 00:00: 00 SULFAMET Allergy Active High Anaphylaxis 2017-09 [facility] HOXAZOLE 10-17 -TRIMETH 00:00: OPRIM 00 GABAPENT Allergy Active High Sob 2017-09 [facility] IN 10-17 00:00: 00 IODINE Allergy Active High Rash 2017-09 [facility] AND 10-17 IODIDE 00:00: CONTAINI 00 NG PRODUCTS MORPHINE Allergy Active High Anaphylaxis 2017-09 [facility] 10-17 00:00: 00 PENICILL Allergy Active High Anaphylaxis 2017-09 SL INS 10-17 00:00: 00 DIPHENHY Allergy Active [...] aches. [facility] adverse 00:00: Medical reaction 00 [place] s Clindamy Propensi Active Rash 2017-[address] stephan ty to 10-17 [facility] adverse 00:00: Medical reaction 00 [place] s Tolterod Propensi Active Rash 2017-[address] ine ty to 10-17 [facility] adverse 00:00: Medical reaction 00 [place] s Gabapent Propensi Active Shortness Of 2017-[address] in ty to Breath, Rash 10-17 Luke s adverse 00:00: Medical reaction 00 [place] s Iodine Propensi Active Rash 2017-[address] And ty to 10-17 [facility] Iodide adverse 00:00: Medical Containi reaction 00 [place] ng s Products Latex Propensi Active Rash 2017-[address] ty to 10-17 [facility] adverse 00:00: Medical reaction 00 [place] s Morphine Propensi Active Anaphylaxis 2017-[address] ty to 10-17 [facility] adverse 00:00: Medical reaction 00 [place] s Penicill Propensi Active Anaphylaxis 2017-[address] ins ty to 10-17 [facility] adverse 00:00: Medical reaction 00 [place] s Quetiapi Propensi Active 2017-[address] ne ty to 10-17 [facility] adverse 00:00: Medical reaction 00 Center s Sulfa Propensi Active Rash 2017-[address] (Sulfona ty to 10-17 [facility] mide adverse 00:00: Medical Antibiot reaction 00 [place] ics) s Cefixime Propensi Active Rash 2017-09 [...] 4-12 ity of HCL 00:00: [place] 00 [facility] Branch CLINDAMY DRUG Active Rash 2017- Univers STEPHAN INGREDI 4-12 ity of 00:00: [place] 00 [facility] Branch GABAPENT DRUG Active Rash 2017- [...] Date Stop Date Quantity Comments Source History SDIL Caodaism Alcohol Std Drinks Hospit al History SDOH [facility]ism Alcohol Binge Hospital Exposure to 2022-02-152022-02-25 Not sure University SARS-CoV-2 (event) 00:00:00 11:25:00 [facility] Alcohol intake 2022-02-23 2022-02-23 Current University of 00:00:00 00:00:00 non-drinker of [facility] alcohol Branch (finding) Education 2021-03-25 2021-03-25 12 University of 00:00:00 00:00:00 [place] [facility] History SDIL 2019-10-29 2019-10-29 5 University o f Financial 00:00:00 00:00:00 [place] [facility] History [facility] Food 2019-10-29 2019-10-29 1 Univers ity of Worry 00:00:00 00:00:00 [place] [facility] History [facility] Food 2019-10-29 2019-10-29 1 Univers ity of Scarcity 00:00:00 00:00:00 [place] [facility] History SDIL 2019-10-29 2019-10-29 2 University o f Transport Med 00:00:00 00:00:00 [place] Medic al Branch History [facility] 2019-10-29 2019-10-29 2 University o f Transport Non-Med 00:00:00 00:00:00 [facility] edical Branch History [facility] 2018-09-05 2018-09-05 1 Caodaism Alcohol Frequency 00:00:00 00:00:00 Hospita l Cigarettes smoked 2018-04-27 2018-04-27 Univers ity of current (pack per 00:00[facility]00 [facility] Branch Cigarette 2018-04-27 2018-04-27 University of pack-years 00:00:00 00:00:00 [facility] Tobacco use and 2018-04-27 2018-04-27 Never used Universit y of exposure 00:00:00 00:00:00 [facility] Tobacco Comment 2018-04-27 2018-04-27 quit 16 years Univer sity of 00:00:00 00:00:00 ago [facility] History of tobacco 2003-05-09 Smoker Univer sity of use 00:00:00 [facility] Sex Ass[birth year] At [birth year] Universit y of 00:00:00 00:00:00 [facility] Smoking Status Start Date Stop Date Source Former smoker 2018-04-27 00:00:00 2018-04-27 00:00:00 [facility] Medical Branch Medications Ordered Filled Start Stop Current Ordering Indication Dosage Frequency Signature Comments Components Source Medication Medication Date Date Medication? Clinician (SIG) Name Name ALPRAZolam Yes [id number] .25mg Take 0.25 Univers (XANAX) 6-03 mg by ity of 0.25 mg 11:30: mouth at [place] tablet 33 bedtime as Medical needed. Branch pregabalin Yes 50mg Take 50 mg U nivers (LYRICA) 50 6-03 by mouth ity of mg capsule 11:30: at [place] [address] bedtime. Medical Branch esomeprazol Yes 20mg Take 20 mg Univers e (NEXIUM) 6-03 by mouth 2 ity of 20 mg 11:30: (two) [place] capsule 33 times Medical daily Branch before breakfast and dinner. ALPRAZolam Yes [id number] .25mg Take 0.25 Univers (XANAX) 6-03 mg by ity of 0.25 mg 11:30: mouth at [place] tablet 33 bedtime as Medical needed. Branch pregabalin Yes 50mg Take 50 mg U nivers (LYRICA) 50 6-03 by mouth ity of mg capsule 11:30: at [place] [address] bedtime. Medical Branch esomeprazol Yes 20mg Take 20 mg Univers e (NEXIUM) 6-03 by mouth 2 ity of 20 mg 11:30: (two) [place] capsule 33 times Medical daily Branch before breakfast and dinner. ALPRAZolam Yes [id number] .25mg Take 0.25 Univers (XANAX) 6-03 mg by ity of 0.25 mg 11:30: mouth at [place] tablet 33 bedtime as Medical needed. Branch pregabalin Yes 50mg Take 50 mg U nivers (LYRICA) 50 6-03 by mouth ity of mg capsule 11:30: at [place] [address] bedtime. Medical Branch esomeprazol Yes 20mg Take 20 mg Univers e (NEXIUM) 6-03 by mouth 2 ity of 20 mg 11:30: (two) [place] capsule 33 times Medical daily Branch before breakfast and dinner. fluticasone Yes [id number] 1{puff} Inhale 1 Univers furoate-natan 6-03 Puff ity of anteroL 00:00: daily. [place] (BREO 00 Medical ELLIPTA) Branch 200-25 mcg/dose DsDv tiotropium Yes [id number] 1{puff} Inhale 1 Univers bromide 6-03 Puff ity of (SPIRIVA 00:00: daily. [place] RESPIMAT) 00 Medical 2.5 Branch mcg/actuati on Mist levETIRAcet Yes [id number] 750mg Take 1 Univers am 750 mg [...] by ity of tablet 00:00: mouth at [place] 00 bedtime as Medical needed for Branch Insomnia. azithromyci Yes [id number] 250mg Take 1 Univers n 250 mg 6-03 tablet by ity of tablet 00:00: mouth [place] 00 daily. Medical Branch roflumilast Yes [id number] 250ug Take 250 Univers (DALIRESP) 6-03 mcg by ity of 250 mcg Tab 00:00: mouth [place] 00 daily. Medical Branch predniSONE 2021-0 2021- Yes [id number] 40mg Take 2 Univers 20 mg 6-03 06-09 tablets by ity of tablet 00:00: 04:59 mouth [place] 00 :00 daily for Medical 5 days. Branch carvediloL 0 Yes [id number] 25mg Take 1 U nivers 25 mg 6-01 tablet by ity of tablet 00:00: mouth [place] (two) Medical times Branch daily with meals. carvediloL 2021-0 Yes [id number] 25mg Take 1 U nivers 25 mg 6-01 tablet by ity of tablet 00:00: mouth [place] (two) Medical times Branch daily with meals. carvediloL 0 Yes [id number] 25mg Take 1 U nivers 25 mg 6-01 tablet by ity of tablet 00:00: mouth [place] (two) Medical times Branch daily with meals. levETIRAcet 2021- No [id number] 750mg Take 1 Univers am 750 mg 3-24 - tablet by ity of tablet 00:00: 00:[address] [place] [address] 00 :00 (two) Medical times Branch daily. tiotropium 2021- No [id number] 1{puff} Inhale 1 Univers bromide 3-14 06-03 Puff ity of (SPIRIVA 00:00: 00:00 daily. [place] RESPIMAT) 00 :00 Medical 2.5 Branch mcg/actuati on Mist BENZONATATE 0 Yes [id number] TAKE 1 Univers 100 mg 3-04 CAPSULE BY ity of capsule 00:00: MOUTH [place] [address] THREE Medical TIMES Branch DAILY NEEDED FOR COUGH BENZONATATE 0 Yes [id number] TAKE 1 Univers 100 mg 3-04 CAPSULE BY ity of capsule 00:00: MOUTH [place] [address] THREE Medical TIMES Branch DAILY NEEDED FOR COUGH BENZONATATE 0 Yes [id number] TAKE 1 Univers 100 mg 3-04 CAPSULE BY ity of capsule 00:00: MOUTH [place] [address] THREE Medical TIMES Branch DAILY NEEDED FOR COUGH chlorphenir 0 2021- No [id number] 4mg Take 1 Univers amine 4 mg 09-29-03 tablet by ity of tablet 00:00: 00:00 mouth [place] 00 :00 every 6 Medical (six) Branch hours as needed for Allergies or Runny nose. calcium/mag 0 2021- No [id number] 1{each} Take 1 Univers nesium/zinc 1-05 06-03 Each by ity of (CALCIUM-MA 00:00: 00:00 [place] GNESUIUM-ZI 00 :00 daily. Medica l [place]) Branch 333-133-5 mg Tab benzonatate 2021- No [id number] 100mg Take 1 Univers 100 mg 09-29 [...] 00 daily. Medical Branch albuterol 2020-09 Yes [id number] 1.25mg Inhale 1.5 Univers 2.5 mg /3 1-11 mL every 4 ity of mL (0.083 00:00: (four) [place] %) 00 hours. Medical nebulizer Branch solution albuterol 2020-09 Yes [id number] 1.25mg Inhale 1.5 Univers 2.5 mg /3 1-11 mL every 4 ity of mL (0.083 00:00: (four) [place] %) 00 hours. Medical nebulizer Branch solution albuterol 2020-09 Yes [id number] 1.25mg Inhale 1.5 Univers 2.5 mg /3 1-11 mL every 4 ity of mL (0.083 00:00: (four) [place] %) 00 hours. Medical nebulizer Branch solution albuterol 2020-09 Yes [id number] 2{puff} Inhale 2 Univers 90 1-05 Puffs ity of mcg/actuati 00:00: every 6 [place] as on inhaler 00 (six) Medical hours as Branch needed for Wheezing or Shortness of Breath. albuterol 2020-09 Yes [id number] 2{puff} Inhale 2 Univers 90 1-05 Puffs ity of mcg/actuati 00:00: every 6 [place] as on inhaler 00 (six) Medical hours as Branch needed for Wheezing or Shortness of Breath. albuterol 2020-09 Yes [id number] 2{puff} Inhale 2 Univers 90 1-05 Puffs ity of mcg/actuati 00:00: every 6 [place] as on inhaler 00 (six) Medical hours as Branch needed for Wheezing or Shortness of Breath. ubrogepant 2020-09 Yes [id number] 100mg Take 100 Univers (UBRELVY) 0-19 mg by ity of 100 mg Tab 00:00: mouth as [place] 00 needed Medical (migraine) Branch . Take at onset of migraine, repeat x1 in 2h if headache remains ubrogepant 2020-09 Yes [id number] 100mg Take 100 Univers (UBRELVY) 0-19 mg by ity of 100 mg Tab 00:00: mouth as [place] 00 needed Medical (migraine) Branch . Take at onset of migraine, repeat x1 in 2h if headache remains ubrogepant 2020-09 Yes [id number] 100mg Take 100 Univers (UBRELVY) 0-19 mg by ity of 100 mg Tab 00:00: mouth as [place] 00 needed Medical (migraine) Branch . Take at onset of migraine, repeat x1 in 2h if headache remains nitroglycer 2020-[id number] 1 Univers in 0.4 mg 0-10 tablet ity of sublingual 00:00: under the [place] tablet 00 tongue Medical every 5 Branch (five) minutes as needed for Chest pain. nitroglycer 2020-[id number] 1 Univers in 0.4 mg 0-10 tablet ity of sublingual 00:00: under the [place] tablet 00 tongue Medical every 5 Branch (five) minutes as needed for Chest pain. nitroglycer 2020-[id number] 1 Univers in 0.4 mg 0-10 tablet ity of sublingual 00:00: under the [place] tablet 00 tongue Medical every 5 Branch (five) minutes as needed for Chest pain. VRAYLAR 3 2021- No 1{capsu Take 1 Un [place] mg Cap 05-19} capsule by ity of 00:00: 00:00 mouth at [place] 00 :00 bedtime. Medical Takes Branch 4.5mg at night albuterol Yes [id number] 2.5mg Inhale 3 Univers 2.5 mg /3 8-05 mL every 6 ity of mL (0.083 00:00: (six) [place] %) 00 hours as Medical nebulizer needed for Bran ch solution Wheezing or Shortness of Breath. albuterol Yes [id number] 2.5mg Inhale 3 Univers 2.5 mg /3 8-05 mL every 6 ity of mL (0.083 00:00: (six) [place] %) 00 hours as Medical nebulizer needed for Bran ch solution Wheezing or Shortness of Breath. albuterol Yes [id number] 2.5mg Inhale 3 Univers 2.5 mg /3 [...] blister with device powder for inhalation fluticasone 2020-0 2020- No 1{puff} Q.5D Inhale 1 Methodi propionate 6-24 06-[address] (FLOVENT 22:52: 00:00 (two) Hospita HFA) 110 47 :00 times a l mcg/actuati day. on inhaler pregabalin Yes 50mg QD Take 50 mg [...] day. l ophthalmic emulsion albuterol Yes 1{ampul Q.[id number] Take 1 Methodi (ACCUNEB) 6-24 e} [id number] ampule by st 1.25 mg/3 22:52: 3D [...] 22:52: nightly. [facility] 44 l levETIRAcet Yes 1000mg Q.5D Take 1,000 Methodi am (KEPPRA) 6-[address] 1000 MG 22:52: mouth 2 Hospita tablet 44 (two) l times a day. esomeprazol 2020- No 20mg QD Take 20 mg Methodi e (NexIUM) 6-24 06-[address] 20 MG 20:19: 00:00 daily Hospita capsule 48 :00 before l breakfast. ARIPiprazol 2020- No 5mg QD Take 5 mg Methodi e (ABILIFY) 6-18 03-[address] 5 MG tablet 01:39: 00:00 daily. Hos [facility] 34 :00 l ARIPiprazol 2020- No 10mg QD Take 10 mg Methodi e (ABILIFY) 6-18 03-[address] 10 MG 01:39: 00:00 [...] up to 3 days. fluticasone 2021- No [id number] 1{puff} Inhale 1 Univers furoate-natan 02-24 06-03 Puff ity of anteroL 00:00: 00:00 daily. [place] (BREO 00 :00 Medical ELLIPTA) Branch 200-25 [...] MG 14:04: mouth Medical tablet 46 daily. [place] venlafaxine Yes 150mg QD Take [address] (EFFEXOR-XR 5-21 mg by [facility] ) 150 MG 24 14:04: mouth Medic al hr capsule 46 daily. [place] apixaban Yes 5mg QD Take 5 mg [...] mouth [facility] MG tablet 14:04: nightly. Medi blane 46 Center carvediloL Yes 25mg Take [address] (COREG) 25 5-21 by mouth 2 [place] es MG tablet 14:04: (two) Medical 46 times Center daily with breakfast and dinner. cariprazine Yes 1.5mg QD Take 1.[address] (Vraylar) 5-21 mg by [facility] 1.5 mg Cap 14:04: mouth Medica l 46 nightly. [place] albuterol 202- No 1{ampul Q.5D Take 1 [...] Medic al 55 mcg 54 :00 daily. [place] nasal inhaler topiramate 2020- No 200mg Q.5D [...] daily as M edical 31 :00 needed. [place] ARIPiprazol 2020- No 5mg QD Take [address] [facility] [facility] e (ABILIFY) -10 02-19 by mouth Berta es 5 MG tablet 22:18: 00:00 nightly. edical 03 :00 [place] ARIPiprazol 2020- No 10mg QD Take [address] [facility] e (ABILIFY) -10 02-19 by mouth Berta es 10 MG 22:17: 00:00 daily. Medical disintegrat 48 :00 [place] ing tablet blood sugar 2017-09 Yes [id number] Use as Univers diagnostic 0-24 directed. ity of (TRUETEST 00:00: R [place]. [place] TEST 00 Check once Medical STRIPS) daily Branch strip lancets 2017-09 Yes [id number] Use as Uni vers (TRUEPLUS 0-24 directed. ity o f LANCETS) 33 00:00: R 73.03, [place] gauge Misc 00 Check once Med ical daily Branch blood sugar 2017-09 Yes [id number] Use as Univers diagnostic 0-24 directed. ity of (TRUETEST 00:00: [place]. [place] TEST 00 Check once Medical STRIPS) daily Branch strip lancets 2017-09 Yes [id number] Use as Uni vers (TRUEPLUS 0-24 directed. ity o f LANCETS) 33 00:00: R 73.03, [place] gauge Misc 00 Check once Med ical daily Branch blood sugar 2017-09 Yes [id number] Use as Univers diagnostic 0-24 directed. ity of (TRUETEST 00:00: R [place]. [place] TEST 00 Check once Medical STRIPS) daily Branch strip lancets 2017-09 Yes [id number] Use as Uni vers (TRUEPLUS 0-24 directed. ity o f LANCETS) 33 00:00: R 73.03, [place] gauge Misc 00 Check once Med ical daily Branch busPIRone Yes TK 1 T PO Uni vers 15 mg 9-22 BID ity of tablet 00:00: [place] 00 Medical Branch busPIRone Yes TK 1 T PO Uni vers 15 mg 9-22 BID ity of tablet 00:00: [place] 00 Medical Branch busPIRone Yes TK 1 [...] mg 00:00: 00:00 [place] tablet 00 :00 [facility] Immunizations Ordered Filled Immunization Date Status Comments [facility] e Immunization Name Name SARS-COV-2 COVID-19 2021-02-08 Completed Unive rsity of MODERNA VACCINE 00:00:00 [facility] SARS-COV-2 COVID-19 2021-02-08 Completed Unive rsity of MODERNA VACCINE 00:00:00 [facility] SARS-COV-2 COVID-19 2021-02-08 Completed Unive rsity of MODERNA VACCINE 00:00:00 [facility] SARS-COV-2 COVID-19 2021-01-11 Completed Unive rsity of MODERNA VACCINE 00:00:00 [facility] SARS-COV-2 COVID-19 2021-01-11 Completed Unive rsity of MODERNA VACCINE 00:00:00 [facility] SARS-COV-2 COVID-19 2021-01-11 Completed Unive rsity of MODERNA VACCINE 00:00:00 [facility] Influenza Virus 2020-08-13 Completed Universit y of Vaccine 00:00:00 [facility] Influenza Virus 2020-08-13 Completed Universit y of Vaccine 00:00:00 [facility] Influenza Virus 2020-08-13 Completed Universit y of Vaccine 00:00:00 [facility] Pneumococcal 2017-06-23 Completed University o f Polysaccharide, 00:00:00 [facility] PPSV23 (PNEUMOVAX) Branch Pneumococcal 2017-06-23 Completed University o f Polysaccharide, 00:00:00 [facility] PPSV23 (PNEUMOVAX) Branch Pneumococcal 2017-06-23 Completed University o f Polysaccharide, 00:00:00 [facility] PPSV23 (PNEUMOVAX) [place] Influenza High Dose 2015-11-16 Completed Unive rsity of 00:00:00 [facility] Pneumococcal 2015-11-16 Completed University o f Polysaccharide, 00:00:00 [place] Med ical PPSV23 (PNEUMOVAX) Branch Influenza High Dose 2015-11-16 Completed Unive rsity of 00:00:00 [facility] Pneumococcal 2015-11-16 Completed University o f Polysaccharide, 00:00:00 [place] Med ical PPSV23 (PNEUMOVAX) Branch Influenza High Dose 2015-11-16 Completed Unive rsity of 00:00:00 [facility] Pneumococcal 2015-11-16 Completed University o f Polysaccharide, 00:00:00 [place] [place] [facility] PPSV23 (PNEUMOVAX) Branch Vital Signs Vital Name Observation Time Observation Value Comments Source HEIGHT 2021-02-10 21:00:00 149.9 cm WEIGHT 2021-02-10 21:00:00 59.467 kg Systolic blood 2022-02-25 16:38:00 128 mm[Hg] Univer sity of pressure [facility] Diastolic blood 2022-02-25 16:38:00 89 mm[Hg] Unive rsity of [facility] Heart rate 2022-02-25 16:38:00 89 /min [facility] Respiratory rate 2022-02-25 16:38:00 19 /min [facility] height 2022-02-25 16:38:00 149.9 cm [facility] Body weight 2022-02-25 16:38:00 58.559 kg [facility] BMI 2022-02-25 16:38:00 26.08 kg/m2 [facility] Oxygen saturation in 2022-02-25 16:38:00 96 /min [facility] Arterial blood by [facility] Pulse oximetry Branch HEIGHT 2021-02-10 21:00:00 149.9 cm WEIGHT 2021-02-10 21:00:00 59.467 kg Oxygen saturation in 2021-03-18 20:00:00 97 /min [facility] Arterial blood by Pulse oximetry Systolic blood 2021-03-18 17:24:48 132 mm[Hg] Method ist [facility] pressure Diastolic blood 2021-03-18 17:24:48 72 mm[Hg] Metho dist [facility] pressure Heart rate 2021-03-18 17:24:48 96 /min [facility] Body temperature 2021-03-18 17:24:48 37 Ayaka [facility] Respiratory rate 2021-03-18 17:24:48 14 /min [facility] Body height 2021-03-18 01:37:00 149.9 cm [facility] Body weight 2021-03-18 00:09:00 58.968 kg [facility] BMI 2021-03-18 00:09:00 26.26 kg/m2 [facility] Systolic blood 2021-02-12 12:00:00 101 mm[Hg] [facility] Diastolic blood 2021-02-12 12:00:00 72 mm[Hg] [facility] Heart rate 2021-02-12 12:00:00 93 /min [facility] Respiratory rate 2021-02-12 12:00:00 18 /min [facility] Oxygen saturation in 2021-02-12 12:00:00 96 /min [facility] Arterial blood by Medical Ce nter Pulse oximetry Body temperature 2021-02-12 11:00:00 37.56 Ayaka [facility] Body height 2021-02-11 10:15:00 149.9 cm [facility] Body weight 2021-02-11 10:15:00 59.5 kg [facility] BMI 2021-02-11 10:15:00 26.48 kg/m2 [facility] Procedures Procedure Date / Time Performing Clinician Source Performed DME/SUPPLY JUSTIFICATION 2022-02-23 05:01:00 Doctor Unassigned, [facility] GLUCOSE 2021-03-18 17:31:00 Cliff Berkowitz [facility] ECG 12-LEAD 2021-03-18 17:28:01 [facility] 2021-03-18 16:41[facility]PLETE, WO 2021-03-18 14:19:12 [facility] CONTRAST, W DOPPLER ([id number]) POC GLUCOSE 2021-03-18 13:14:00 [facility] COMPLETE BLD COUNT 2021-03-18 10:00:00 [facility], [facility] W/AUTO DIFF COMPREHENSIVE METABOLIC 2021-03-18 10:00:00 [facility], [facility] PANEL MAGNESIUM LEVEL 2021-03-18 10:00:00 [facility], [facility] PHOSPHORUS LEVEL 2021-03-18 10:00:00 Lae, [facility] LIPID PANEL 2021-03-18 10:00:00 [facility], [facility] HEMOGLOBIN A1C 2021-03-18 10:00:00 Lae, [facility] ESTIMATED GFR 2021-03-18 10:00:00 Lae, [facility] URINE CULTURE 2021-03-18 06:12:00 Lae, [facility] LEGIONELLA URINARY 2021-03-18 05:36:00 Lae, [facility] ANTIGEN STREPTOCOCCUS PNEUMONIAE 2021-03-18 05:36:00 [facility], [facility] URINARY ANTIGEN URINALYSIS SCREEN AND 2021-03-18 05:36:00 Laeeq, [facility] MICROSCOPY, WITH REFLEX TO CULTURE BLOOD CULTURE, AEROBIC & 2021-03-18 04:35:00 Lae, [facility] ANAEROBIC BLOOD CULTURE, AEROBIC & 2021-03-18 04:25:00 [facility], [facility] ANAEROBIC DIGOXIN LEVEL 2021-03-18 04:24:00 [facility], [facility] TROPONIN 2021-03-18 04:24:00 Hector Alvarez [facility] LACTIC ACID LEVEL, SEPSIS 2021-03-18 04:24:00 Lae, [facility] - NOW AND REPEAT 2X EVERY 3 HOURS POC GLUCOSE 2021-03-18 01:38:00 [facility], [facility] ARTERIAL BLOOD GAS 2021-03-18 01:10:00 [facility], [facility] US DUPLEX VENOUS LOWER 2021-03-18 01:00:06 Lae, [facility] EXTREMITY BILATERAL LACTIC ACID LEVEL, SEPSIS 2021-03-17 23:47:00 [facility] - NOW AND REPEAT 2X EVERY 3 HOURS TROPONIN 2021-03-17 23:47:00 [facility] XR CHEST 1 VW PORTABLE 2021-03-17 21:20:18 [facility] HC COMPLETE BLD COUNT 2021-03-17 21:05:00 [facility] W/AUTO DIFF LACTIC ACID LEVEL, SEPSIS 2021-03-17 21:05:00 [facility] - NOW AND REPEAT 2X EVERY 3 HOURS COMPREHENSIVE METABOLIC 2021-03-17 21:05:00 [facility] PANEL TROPONIN 2021-03-17 21:05:00 [facility] B NATRIURETIC PEPTIDE 2021-03-17 21:05:00 [facility] D-DIMER 2021-03-17 21:05:00 [facility] ESTIMATED GFR 2021-03-17 21:05:00 [facility] ECG ED PRELIMINARY 2021-03-17 20:36:46 [facility] INTERPRETATION ECG 12-LEAD 2021-03-17 20:19:38 [facility] BASIC METABOLIC PANEL (7) 2021-02-12 05:34:00 [place] [facility] MAGNESIUM 2021-02-12 05:34:00 Johan [facility] PHOSPHORUS 2021-02-12 05:34:00 [facility] CBC W/PLT COUNT & AUTO 2021-02-12 04:48:[address] [facility] MR BRAIN WITHOUT IV 2021-02-11 16:08:00 Igor Chew [facility] MRA HEAD WITHOUT IV 2021-02-11 16:07:00 N[facility]a [facility] MRA NECK WITHOUT IV 2021-02-11 16:07:00 ChewIgor hicks [facility] RAPID DRUG SCREEN, URINE 2021-02-11 03:05:00 [facility] URINALYSIS WITH 2021-02-11 03:05:00 [facility] MICROSCOPIC IF INDICATED Center URINALYSIS MICROSCOPIC 2021-02-11 03:05:00 [facility] HOMOCYSTEINE 2021-02-11 02:46:00 [facility] RPR 2021-02-11 02:46:00 [facility] TSH/FREE T4 IF INDICATED 2021-02-11 02:46:00 [facility] VITAMIN B12 AND FOLATE 2021-02-11 02:46:00 [facility] CBC W/PLT COUNT & AUTO 2021-02-11 02:46:00 [facility] BASIC METABOLIC PANEL (7) 2021-02-11 02:46:00 [facility] MAGNESIUM 2021-02-11 02:46:00 [facility] PHOSPHORUS 2021-02-11 02:46:00 [facility] C-REACTIVE PROTEIN 2021-02-11 02:46:00 [facility] DIGOXIN LEVEL 2021-02-11 02:46:00 [facility] XR CHEST 1 VIEW PORTABLE 2021-02-10 22:20:00 [facility] / BEDSIDE Center POCT-GLUCOSE METER 2021-02-10 21:28:00 Wilmer Vera [facility] LIPID PANEL 2021-02-10 21:22:00 [facility] CREATINE KINASE (CK) 2021-02-10 21:21:00 [facility] HEMOGLOBIN A1C 2021-02-10 21:21:00 [facility] CBC W/PLT COUNT & AUTO 2021-02-10:21:00 Alison Prado [facility] DIFFERENTIAL Center COMPREHENSIVE METABOLIC 2021-02-10 21:21:00 Alison Prado [facility] PANEL Center PROTHROMBIN TIME/INR 2021-02-10 21:21:00 [place] APTT 2021-02-10 21:21:00 [facility] MAGNESI[facility] 2021-02-10 21:21:00 [facility] PHOSPHORUS 2021-02-10 21:21:00 [facility] HIGH SENSITIVITY TROPONIN 2021-02-10 21:21:00 [place] [facility] B-TYPE NATRIURETIC FACTOR 2021-02-10 21:21:00 [place] [facility] ([facility] [place] LACTIC ACID, VENOUS 2021-02-10 21:21:00 [place] Alison [facility] ARRYTHMIA IMPLANT REPORT 2021-02-10 00:00:00 Provider, Mino Sharp [facility] - SCAN Scanning Center Plan of Care Planned Activity Planned Date Details Comments Source Future Scheduled 2021-05-[address] [facility] Test 00:00:00 (#1) [code = [facility] INFLUENZA VACCINE (#1)] Future Scheduled 2020-09-[address] [facility] Test 00:00:00 (12+) [code = [facility] DEPRESSION SCREENING (12+)] Future Scheduled [address] [facility] 00:00:00 malignant neoplasm Medical C enter of cervix (procedure) [code = 476176144] Future Scheduled 2000 DTAP/TDAP/TD [facility] 00:[facility]:00 VACCINES (1 - Tdap) [facility] [code = DTAP/TDAP/TD VACCINES (1 - Tdap)] Future Scheduled [address] [facility] Test 00:00:00 SCREENING [code = Medical Ce nter HEPATITIS C SCREENING] Future Scheduled Screening [facility] Test malignant neoplasm of cervix (procedure) [code = 762602779] Future Scheduled INFLUENZA VACCINE [facility] [code = INFLUENZA VACCINE] Encounters Start End Encounter Admission Attending Care Care Encounter Source Date/Time Date/Time Type Type Clinicians Facility Department ID 2021-02-10 Inpatient ER BERTATY SLEShauna Neurology [id number] [facility] 20:21:00 WILMER 2020-09-29 Inpatient Mely, HCAPM ENDO [id number] [facility] 10:15:00 Linus [id number] [facility] 2020-09-28 Inpatient EL Mely, HCAPM ENDO [id number] [facility] 12:00:00 Linus [id number] [facility] 2022-05-13 2022-05-13 Outpatient R AMOS [facility] [id number] Univers 10:00:00 10:00:00 CARITO [id number] ity [facility] 2022-05-13 2022-05-13 [id number] Univers 10:00:00 10:00:00 [facility] 2022-03-08 Outpatient R [facility] [id number] Univers 11:00:00 11:00:00 ity [facility] 2022-02-25 2022-02-25 [facility] 1.2.840.114 [id number] Univers 11:30:00 11:59:54 Visit Tucker ONTIVEROS 350.1.13.10 i ty of [place] [id number] [place] 2022-02-23 2022-02-23 Orders Doctor NURYS 1.2.840.114 [id number] Univers 00:00:00 00:00:00 Only Unassigned, PINKY 350.1.13.10 ity of [place] [facility] 4.2.7.2.686 Basilio as [id number] [address] 2022-02-23 2022-02-23 Telephone Leo MALENARD 1.2.840.114 [id number] Univers 00:00:00 00:00:00 Teofilo ONTIVEROS 350.1.13.10 it[place] [id number] [place]ical NAL [address] [place] [address] 2021-05-12 2021-05-12 Orders Doctor NURYS 1.2.840.114 [id number] 00:00:00 00:00:00 Only UnassignedPINKY 350.1.13.10 [facility] 4.2.7.2.686 [id number] [id number] 2021-04-29 2021-04-29 Office NAKUL Guy 1.2.840.114 [id number] 12:33:16 13:56:43 Visit Tucker [place] 350.1.13.10 [place] 4.2.7.2.686 Professio [id number] nal 5 [facility] 2021-04-28 2021-04-28 Orders DANITA Guy 1.2.187.387 [id number] 00:00:00 00:00:00 Only [facility] 350.1.13.10 CLINICS 4.2.7.2.686 [id number] 2021-03-19 2021-03-19 Patient Omari, 1.2.840.1 [id number] Methodi 00:00:00 00:00:00 Outreach Ann 20145.1.[address] 3.430.2.7 Hospit a .3.133814 l .8 2021-03-17 2021-03-18 Emergency Antonio Hector T. 1.2.840.1 [id number] Methodi 14:59:00 17:52:00 Veda Bolanos [address]18.1.[address] Cliff Berkowitz 3.430.2.7 Hospita .3.723488 l .8 2021-03-17 2021-03-17 Travel 1.2.840.1 1.2.534.341 [id number] Methodi 00:00:00 00:00:[address] 3.430.2.7 0.2.7.3.698 Ho spita .3.342984 084.8 l .8 2017-09-06 2017-09-08 [id number] 10:12:00 02:32:[address] [facility] Results Test Description Test Time Test Comments Results Result Comments Source ECG 12 lead 2021-03-19 14:56:41 Test Item Value Reference Range Interpretation Comme nts Ventricular rate (test code = 253) Atrial rate (test code = 255) IA interval (test code = 266) QRSD interval [...] of 17-MAR-2021 15:19,-No significant change was found- [facility] [id number] 12:41:23 Test Item Value Reference Range Interpretation Comments Urine culture isolate Mixed alok <=10-3 (test code = 82498-6) col/cc [facility]chocardiogram Complete, (w Contrast, Strain and 3D if needed)2021-03-18 23:04:52 Test Item Value Reference Range Interpretation Comments Ao Root Diameter (test code = 2.73 cm 4893801980) AoV Area, Vmax (test code = 2.24 cm2 0516985579) AoV Area, VTI (test code = 2.25 cm2 7693005781) AoV Mean PG (test code = mmHg 3104961043) AoV Peak PG (test code = mmHg 4118273145) AoV Vmax (test code = 2981383724) 1.46 m/s AoV VTI (test code = 0938820580) 0.28 m IVS,d (test code = 8992842849) 0.72 cm IVS/LVPW,2D (test code = 5795728159) Left Atrium Dimension Anterior 2.68 cm (test code = 0931735730) LV,d (test code = 7277967703) 3.69 cm LV EF,2D (test code = 2894482636) 79.68 % LV,s (test code = 3487521040) 2.17 cm LVOT area (test code = 7686007133) 2.75 cm2 LVOT Diam,S (test code = 1.87 cm 4217748883) LVOT Vmax (test code = 3331208498) 1.18 m/s LVOT VTI (test code = 3838718595) 0.23 m LVPWD,d (test code = 3991551562) 0.65 cm PV Pk Grad (test code = 9755783511) mmHg PV VMAX (test code = 5221803714) 0.84 m/s RVOT Vmax (test code = 8811287094) 0.85 m/s RVSP (TR) (test code = 1408668356) mmHg TR Vpeak (test code = 5649807852) 2.86 mm/s MV E A ratio (test code = 1178711108) RA pressure (test code = mmHg 4873247670) TR pk grad (test code = 5332468778) mmHg MR Vmax (test code = 9205138661) 5.49 m/s E wave decelartion time (test code msec = 2059359576) MV Peak A Alf (test code = 0.76 m/s 6601421365) MV valve area p 1/2 method (test 3.26 cm2 code = 4721333248) MV Peak E Alf (test code = 0.92 m/s 8235286243) MV stenosis pressure 1/2 time (test 67.54 ms code = 3866554661) LVOT stroke volume (test code = 0.63 cm3 5177437684) AV LVOT peak gradient (test code = mmHg 7833629126) RVSP (test code = 9782519461) mmHg Ao Root Diameter (test code = 2.73 cm 7064778137) MV mean gradient (test code = mmHg 6024111296) LV SYS VOL (test code = 2160657452) 15.61 ml LV MARTINS VOL (test code = 57.63 ml 3746264783) LA area s A4C (test code = 11.16 cm2 3354161313) LV SV Teich 2D (test code = 42.02 ml 9972362048) LV Vol s Teich PSAX (test code = 15.61 ml 1282636570) MR peak grad (test code = mmHg 8107644715) MV Vmax (test code = 1724801393) 1.21 m MV VTI Tips (test code = 0.24 m 6045882884) RVOT pk grad (test code = mmHg 8864804746) AoV Vmn (test code = 7129740775) LV FS Teich 2D (test code = 0925241417) MV AE ratio (test code = 6427489416) LV FS Cube 2D (test code = 1431054204) LVOT Vmn (test code = 0359753469) Aov area Vmn (test code = 2.13 cm2 2062402267) LVOT mean grad (test code = mmHg 4684739377) MAX Pred HR (test code = 8632216585) 85 of MPHR (test code = 9759325234) Calc MPHR (test code = 0797911119) bpm LV SV Cube 2D (test code = 39.93 ml 3102760435) LV vol d cube 2D (test code = 50.11 ml 9987146703) LV vol s cube 2D (test code = 10.18 ml 7710062090) MV Decel slope (test code = 3.97 m/s2 0434369010) Pred Exer Dur R1 (test code = 9541530052) Pred METS R1 (test code = 4751449258) LA Vol MOD A4C (test code = 24.20 ml 3532816164) Velocity Ratio (V1/V2) (test code = 0.81 m/s 4689) EF (test code = 7662179508) 72.91 % E/A ratio (test code = 5964446766) LVOT VTI (CM) (test code = 23.00 cm 5564713419) SOMMER (test code = SOMMER) [facility] [id number] 17:32:37 Test Item Value Reference Range Interpretation Comments POC glucose (test code = 83794-2) 207 mg/dL 65-99 H Lab Interpretation (test code = Abnormal 45106-8) [facility] duplex venous lower [id number] 01:17:37 EXAMINATION: US DUPLEX VENOUS LOWER EXTREMITY [...] is no evidence of deep venous thrombosis. [facility]-[id number] Interface, Radiology Results 03/17/2021 8:20 PM CDT [...] There is no evidence of deep venous thrombosis.[facility]-[id number] HospitalXR Chest 1 Vw [id number] 21:32:52EXAMINATION: XR CHEST 1 VW PORTABLE CLINICAL HISTORY: 40 years Female SOB COMPARISON: None. IMPRESSION: Lines, tubes, and devices: Right-sided transvenous cardiac pacemaker. Heart and mediastinum: Cardiomediastinal silhouette is normal. Lungs and pleura: There is no focal airspace disease, pleuraleffusion or pneumothorax. Bones/soft tissues: No acute osseous abnormality. [facility]-[id number] Dictatedand approved by radiology asst/fellow: Cristhian Calixto M.D. I, Jan Scott MD, personally reviewed the images and resident's/fellow's findings and agree with the final report. Interface, Rad iology Results 03/17/2021 4:35 PM CDTFormatting of this note might be different from theoriginal.EXAMINATION: XR CHEST 1 VW PORTABLECLINICAL HISTORY: 40 years Female SOBCOMPARISON: None.IMPRESSION:Lines, tubes, and devices: Right-sided transvenous cardiac pacemaker.Heart and mediastinum: Cardiomediastinal silhouette is normal.Lungs and pleura: There is no focal airspace disease, pleural effusion or pneumothorax.Bones/soft tissues: No acute osseous abnormality.[facility]-[id number] and approved by radiology asst/fellow: Cristhian Calixto M.D.I, Jan Scott MD, personally rev iewed the images and resident's/fellow's findings and agree with the final report.[facility] TexasARRYTHMIA IMPLANT REPORT - [id number] 20:45:31 Ordered by an unspecified provider.[facility] Preliminary Interpretation - Not an [id number] 20:36:46 Test Item Value Reference Range Interpretation Comments SOMMER (test code = SOMMER) Lab Interpretation (test code = Abnormal 97681-4) [facility] Texas[facility] Metabolic [id number] 07:01:00 Test Item Value Reference Range Interpretation Comments Sodium (test code = 137 meq/L 181-774 0966-2) Potassium (test code = 4.3 meq/L 3.5-5.1 2823-3) Chloride (test code = 104 meq/L 98-107 2075-0) CO2 (test code = 24 meq/L 22-29 2028-9) BUN (test code = 15 mg/dL 7-21 3094-0) Creatinine (test code 0.81 mg/dL 0.57-1.25 = 2160-0) Glucose (test code = 108 mg/dL 70-105 H 2345-7) Calcium (test code = 9.2 mg/dL 8.4-10.2 65076-7) EGFR (test code = 79 mL/min/1.73 [place] [address]-9) NOT ACCURATE CREATININE CLEARANCE IN PREDICTING GLOMERULAR FILTRATION RATE . ESTIMATED GFR I S NOT APPLICABLE FOR DIALYSIS PATIENTS. SOMMER (test code = SOMMER) Computer Networking Instructor ID - PIAYA L Lab Interpretation Abnormal (test code = 15795-4) [facility]21-[facility] 07:01:00 Test Item Value Reference Range Interpretation Comments Magnesium (test code = 2.5 mg/dL 1.6-2.6 17142-9) SOMMER (test code = SOMMER) Computer Networking Instructor ID - SHAMIKADEANN L Lab Interpretation (test Normal code = 18265-8) [facility]2021-[facility]-21 07:01:00 Test Item Value Reference Range Interpretation Comments Phosphorus (test code = 4.3 mg/dL 2.3-4.7 2777-1) SOMMER (test code = SOMMER) Computer Networking Instructor ID - MACHELLE L Lab Interpretation (test Normal code = 19183-4) [facility]IC METABOLIC [id number] 07:01:00 Test Item Value Reference Range Interpretation [...] S NOT APPLICABLE FOR DIALYSIS PATIEN TS. Computer Networking Instructor ID - MACHELLE [id number] 07:01:00 Test Item Value Reference Range Interpretation Comments MAGNESIUM (BEAKER) (test code = 2.5 mg/dL 1.6-2.6 627) Computer Networking Instructor ID - MACHELLE [id number] 07:01:00 Test Item Value Reference Range Interpretation Comments PHOSPHORUS (BEAKER) (test code = 4.3 mg/dL 2.3-4.7 604) Computer Networking Instructor ID - MACHELLE LCBC with platelet count + automated [id number] 05:37:00 Test Item Value Reference Range Interpretation Comments WBC (test code = 6690-2) 6.8 See_Comment [A utomated message] The system [employer] generated this result transmitted ref erence range: 3.5 - 10 .5 K/L. The refe rence range was not u sed to interpret this result as normal/abnor mal. RBC (test code = 789-8) 5.14 See_Comment [Au tomated message] The system [employer] generated this result transmitted ref erence range: 3.93 - 5 .22 M/L. The refe rence range was not u sed to interpret this result as normal/abnor mal. MCHC (test code = 786-4) 31.6 See_Comment L [A utomated message] The system [employer] generated this result transmitted ref erence range: [...] See_Comment [Aut omated message] 777-3) The system [employer] generated this result transmitted ref erence range: 150 - 45 0 K/CU MM. The referen ce range was not u sed to interpret this result as normal/abnor mal. MPV (test code = 10.0 fL 9.4-12.3 35261-7) nRBC (test code = 413) 0 See_Comment [Aut omated message] The system [employer] generated this result transmitted ref erence range: [...] See_Comment [Aut omated message] 670) The system [employer] generated this result transmitted ref erence range: 1.56 - 6 .13 K/L. The refe rence range was not u sed to interpret this result as normal/abnor mal. # Lymphs (test code = 2.10 See_Comment [Auto mated message] 414) The system [employer] generated this result transmitted ref erence range: 1.18 - 3 .74 K/L. The refe rence range was not u sed to interpret this result as normal/abnor mal. # Monos (test code = 0.48 See_Comment H [Autom ated message] 415) The system [employer] generated this result transmitted ref erence range: 0.24 - 0 .36 K/L. The refe rence range was not u sed to interpret this result as normal/abnor mal. # Eos (test code = 416) 0.26 See_Comment [Au tomated message] The system [employer] generated this result transmitted ref erence range: 0.04 - 0 .36 K/L. The refe rence range was not u sed to interpret this result as normal/abnor mal. # Baso (test code = 417) 0.04 See_Comment [A utomated message] The system [employer] generated this result transmitted ref erence range: 0.01 - 0 .08 K/L. The refe rence range was not u sed to interpret this result as normal/abnor mal. Immature 1 % 0-1 Granulocytes-Relative (test code = 2801) Lab Interpretation (test Abnormal code = 59852-3) [facility] W/PLT COUNT & AUTO [id number] 05:37:00 Test Item Value Reference Range Interpretation [...] code = 2801) MR, MRA, BRAIN, WITHOUT [id number] 16:54:00Reason for exam:->Ischemic Stroke EvaluationKA[facility] : 1980 Sex: FFINAL REPORT MR, BRAIN, WITHOUT CONTRAST, MR, MRA, BRAIN, WITHOUT CONTRAST, MR, MRA, NECK, WITHOUT IV CONTRAST INDICATION: Stroke, follow upIschemic Stroke Evaluation TECHNIQUE: Multiplanar, multisequence MR imaging of the brain without intravenous contrast.MRA of the head utilizing 3-D uvuc-oy-bbkzlo technique, with 3-D reconstructions.MRA of the neck utilizing 2-D and 3-D gkak-wu-nbpzdq technique, with 3-D reconstructions. COMPARISON: MRI and [...] 02/11/2021 16:54:16 MR, MRA, NECK, WITHOUT IV [id number] 16:54:00Reason for exam:->Ischemic Stroke Evaluation [facility] : 1980 Sex: FFINAL REPORT MR, BRAIN, WITHOUT CONTRAST, MR, MRA, BRAIN, WITHOUT CONTRAST, MR, MRA, NECK, WITHOUT IV CONTRAST INDICATION: Stroke, follow upIschemic Stroke Evaluation TECHNIQUE: Multiplanar, multisequence MR imaging of the brain without intravenous contrast.MRA of the head utilizing 3-D rdsl-yi-ttligw technique, with 3-D reconstructions.MRA of the neck utilizing 2-D and 3-D vatp-ly-drtgkj technique, with 3-D reconstructions. COMPARISON: MRI and [...] Verified Date/Time: 02/11/2021 16:54:16 MR, BRAIN, WITHOUT [id number] 16:54:00Reason for exam:->Ischemic Stroke Evaluation [facility] : 1980 Sex: FFINAL REPORT MR, BRAIN, WITHOUT CONTRAST, MR, MRA, BRAIN, WITHOUT CONTRAST, MR, MRA, NECK, WITHOUT IV CONTRAST INDICATION: Stroke, follow upIschemic Stroke Evaluation TECHNIQUE: Multiplanar, multisequence MR imaging of the brain without intravenous contrast.MRA of the head utilizing 3-D loly-lg-mykdpd technique, with 3-D reconstructions.MRA of the neck utilizing 2-D and 3-D gagk-ay-xryzwp technique, with 3-D reconstructions. COMPARISON: MRI and [...] Date/Time: 02/11/2021 16:54:16 MR brain without IV [id number] 16:54:00Interface, External Ris In - 02/11/2021 4:56 PM CDTFINAL REPORT MR, BRAIN, WITHOUT CONTRAST, MR, MRA, BRAIN, WITHOUT CONTRAST, MR, MRA, NECK, WITHOUT IV CONTRAST INDICATION: Stroke, follow upIschemic Stroke Evaluation TECHNIQUE: Multiplanar, multisequence MR imaging of the brain without intravenous contrast.MRA of the head utilizing 3-D sxpy-rh-egglpi technique, with 3-D reconstructions.MRA of the neck utilizing 2-D and 3-D upib-io-hpykhx technique, with 3-D reconstructions. COMPARISON: MRI and [...] Signed: Lakshmi Amador Verified Date/Time: 02/11/2021 16:54:16 [facility] [id number] 16:54:00Interface, External Ris In - 02/11/2021 4:56 PM CDTFINAL REPORT MR, BRAIN, WITHOUT CONTRAST, MR, MRA, BRAIN, WITHOUT CONTRAST, MR, MRA, NECK, WITHOUT IV CONTRAST INDICATION: Stroke, follow upIschemic Stroke Evaluation TECHNIQUE: Multiplanar, multisequence MR imaging of the brain without intravenous contrast.MRA of the head utilizing 3-D ftut-uf-bsnmnx technique, with 3-D reconstructions.MRA of the neck utilizing 2-D and 3-D lqst-uf-nrgcws technique, with 3-D reconstructions. COMPARISON: MRI and [...] Signed: Lakshmi Amador Verified Date/Time: 02/11/2021 16:54:16 [facility] without IV [id number] 16:54:00Interface, External Ris In - 02/11/2021 4:56 PM CDTFINAL REPORT MR, BRAIN, WITHOUT CONTRAST, MR, MRA, BRAIN, WITHOUT CONTRAST, MR, MRA, NECK, WITHOUT IV CONTRAST INDICATION: Stroke, follow upIschemic Stroke Evaluation TECHNIQUE: Multiplanar, multisequence MR imaging of the brain without intravenous contrast.MRA of the head utilizing 3-D uinr-cz-nkzqpf technique, with 3-D reconstructions.MRA of the neck utilizing 2-D and 3-D jukz-mx-yznjzx technique, with 3-D reconstructions. COMPARISON: MRI and [...] Signed: Lakshmi Amadorort Verified Date/Time: 02/11/2021 16:54:16 [facility] Test Item Value Reference Range Interpretation Comments RPR (test code = 70888-7) Nonreactive Nonreactive Lab Interpretation (test code = Normal 87550-4) [facility] 14:[facility]00 Test Item Value Reference Range Interpretation Comments RPR SCREEN (BEAKER) (test code = Nonreactive Nonreactive 420) Hemoglobin [id number] 09:35:00 Test Item Value Reference Range Interpretation Comments Hemoglobin A1C (test code = 4548-4) 6.0 % 4.3-6.1 Lab Interpretation (test code = Normal 08803-6) [facility] [id number] 09:35:00 Test Item Value Reference Range Interpretation Comments HEMOGLOBIN A1C (BEAKER) (test code = 6.0 % 4.3-6.1 368) Rapid drug screen, [id number] 07:26:00 Test Item Value Reference Range Interpretation Comments Barbiturate Screen Negative Negative (test code = 26448-7) Benzodiazepine Screen Negative Negative (test code = 22812-9) Cocaine (Metab.) Negative Negative Screen (test code = 3397-7) Methadone Screen (test Negative Negative code = 99589-4) Opiate Screen (test Negative Negative code = 54559-7) Cannabinoid Screen Negative Negative (test code = 64816-9) Amph/Methamph Screen Negative Negative (test code = 48744-3) Phencyclidine Screen Negative Negative (test code = 55641-1) pH, UA (test code = 6.5 5.0-8.0 5803-2) SOMMER (test code = SOMMER) DRUG CUTOFF CONC.Cocaine 300 ng/mL Cannabinoid 50 ng/mLBenzodiazepine 200 ng/mLBarbiturate 200 ng/mLPhencyclidine 25 ng/mLOpiate 300 ng/mLMethadone 300 ng/mLAmphetamine/ 1000 ng/mL Methamphetamine This assay provides an unconfirmed qualitative test result for the clinical management of patients in emergency situations. Chain of custody not maintained. Some shob-jre-bqefrvq medications, as well as adulterants, may cause inaccurate results. Clinical correlation should be applied. A more comprehensive drug screen or confirmation of a detected drug may be performed upon request.Computer Networking Instructor ID - VIET Jerez Lab Interpretation Normal (test code = 43342-4) [facility] HospitalRAPID DRUG SCREEN, [id number] 07:26:00 Test Item Value Reference Range Interpretation [...] situations. Chain of custody not maintained. Some ivhv-vqg-alixqci medications, as well as adulterants, may cause inaccurate results. Clinical correlation should be applied. A more comprehensivedrug screen or confirmation of a detected drug may be performed upon request.Computer Networking Instructor ID - VIET MUrinalysis with Microscopic If [id number] 07:11:00 Test Item Value Reference Range Interpretation Comments Color, UA (test code = Light Yellow 5778-6) Clarity, UA (test code = Clear 5767-9) Specific Maple, UA (test 1.012 1.001-1.035 code = 5811-5) pH, UA (test code = 6.5 5.0-8.0 5803-2) Protein, UA (test code = Negative Negative 67479-8) Glucose, UA (test code = Negative Negative 365) Ketones, UA (test code = Negative Negative 2514-8) Bilirubin, UA (test code = Negative Negative 59861-4) Blood, UA (test code = Small Negative A 12908-8) Nitrite, UA (test code = Negative Negative 5802-4) Leukocytes, UA (test code Small Negative A = 5799-2) Urobilinogen, UA (test 0.2 mg/dL 0.2-1 code = 99623-9) Specimen Source (test code = 2795) SOMMER (test code = SOMMER) Computer Networking Instructor ID - [auto]Computer Networking Instructor ID - tech Lab Interpretation (test Abnormal code = 05455-0) [facility] HospitalUrinalysis Microscopic [id number] 07:11:00 Test Item Value Reference Range Interpretation Comments RBC, UA (test 11 See_Comment [Automated me ssage] code = 91877-2) The system w [employer] generated this result transmitted ref erence range: /HPF. Th e reference range was not used to int erpret this result as normal/abnormal . WBC, UA (test 11 See_Comment [Automated me ssage] code = 5821-4) The system wh [facility] generated this result transmitted ref erence range: /HPF. Th e reference range was not used to int erpret this result as normal/abnormal . Mucus (test Rare code = 8247-9) Squam Epithel, 3 See_Comment [Automated m essage] UA (test code = The system w [facility] 72848-9) generated this result transmitted ref erence range: /HPF. Th e reference range was not used to int erpret this result as normal/abnormal . SOMMER (test code Computer Networking Instructor ID - tech = SOMMER) [facility] HospitalURINALYSIS WITH MICROSCOPIC IF [id number] 07:11:00 Test Item Value Reference Range Interpretation [...] = 463) SOURCE(BEAKER) (test code = 2795) Computer Networking Instructor ID - [auto]Computer Networking Instructor ID - techURINALYSIS UZNHOTIQDTY7159-01-26 07:11:00 Test Item Value Reference Range Interpretation Comments RBC UA (BEAKER) (test code = 519) 11 /HPF WBC UA (BEAKER) (test code = 520) 11 /HPF MUCUS (BEAKER) (test code = 1574) Rare SQUAMOUS EPITHELIAL (BEAKER) (test 3 /HPF code = 516) Computer Networking Instructor ID - techDigoxin emteo6223-45-93 06:22:00 Test Item Value Reference Range Interpretation Comments Digoxin Lvl (test code = <0.30 0.8-2 L 18298-8) SOMMER (test code = SOMMER) Computer Networking Instructor ID - PIAYA L Lab Interpretation (test Abnormal code = 43462-5) [facility] HospitalDIGOXIN [id number] 06:22:00 Test Item Value Reference Range Interpretation Comments DIGOXIN LEVEL (BEAKER) (test code = < ng/mL 0.80-2.00 L 669) Computer Networking Instructor ID - MACHELLE CMmtkmekkytsi7828-17-27 05:58:00 Test Item Value Reference Range Interpretation Comments Homocysteine (test code = 7.3 umol/L 5.1-15.4 53935-2) SOMMER (test code = SOMMER) Computer Networking Instructor ID - PIAYA L Lab Interpretation (test Normal code = 45818-3) [facility] HospitalTSH/Free T4 If Aspiahhlm5723-39-18 05:58:00 Test Item Value Reference Range Interpretation Comments TSH (test code = 4.368 See_Comment [Automated 16182-3) message] The system which generated this result transmit aida reference range : 0.350 - 4.940 uIU/mL. The reference range was not used to interpret this result as normal/abnormal . SOMMER (test code = SOMMER) Computer Networking Instructor ID - PIAYA L Lab Interpretation Normal (test code = 69810-8) [facility] HospitalVitamin B12 and [id number] 05:58:00 Test Item Value Reference Range Interpretation Comments Vitamin B12 (test 557 pg/mL 213-816 code = 2132-9) Folate (test code = 11.20 ng/mL See_Comment [Automa aida 2284-8) message] The system which generated this result transmit aida reference range : >=7.00. The reference range was not used to interpret this result as normal/abnormal . SOMMER (test code = SOMMER) Computer Networking Instructor ID - MACHELLE L Lab Interpretation Normal (test code = 04231-0) [facility] HospitalLrpzylYRCYGOGPTIGQ2384-66-27 05:58:00 Test Item Value Reference Range Interpretation Comments HOMOCYSTEINE (BEAKER) (test code = 7.3 umol/L 5.1-15.4 642) Computer Networking Instructor ID - MACHELLE LTSH/FREE T4 IF [id number] 05:58:00 Test Item Value Reference Range Interpretation Comments THYROID STIMULATING HORMONE 4.368 uIU/mL 0.350-4.940 (BEAKER) (test code = 772) Computer Networking Instructor ID - MACHELLE LVITAMIN B12 AND [id number] 05:58:00 Test Item Value Reference Range Interpretation Comments VITAMIN B12 557 pg/mL 213-816 (BEAKER) (test code = 774) FOLATE (BEAKER) 11.20 ng/mL See_Comment [Automated message] (test code = 362) The system which generated this result transmitted ref erence range: >=7.00. The reference range was not used to interpr et this result as normal/abnormal . Computer Networking Instructor ID - MACHELLE LC-Reactive Zmddoui0284-12-57 04:54:00 Test Item Value Reference Range Interpretation Comments CRP (test code = 676) 0.81 mg/dL 0-0.5 H SOMMER (test code = SOMMER) Computer Networking Instructor ID - MACHELLE L Lab Interpretation (test Abnormal code = 09721-9) [facility] HospitalMAGNESIUM2021-05-20 04:54:00 Test Item Value Reference Range Interpretation Comments MAGNESIUM (BEAKER) 2.1 mg/dL 1.6-2.6 Specimen slightly (test code = 627) hemolyzed Computer Networking Instructor ID - MACHELLE [id number] 04:54:00 Test Item Value Reference Range Interpretation Comments PHOSPHORUS (BEAKER) 4.3 mg/dL 2.3-4.7 Specimen slightly (test code = 604) hemolyzed Computer Networking Instructor ID - MACHELLE LBASIC METABOLIC [id number] 04:54:00 Test Item Value Reference Range Interpretation [...] S NOT APPLICABLE FOR DIALYSIS PATIEN TS. Computer Networking Instructor ID - PIAYA LC-REACTIVE [id number] 04:54:00 Test Item Value Reference Range Interpretation Comments C-REACTIVE PROTEIN (BEAKER) (test 0.81 mg/dL 0.00-0.50 H code = 676) Computer Networking Instructor ID - PIAYA LCBC W/PLT COUNT & AUTO [id number] 02:54:00 Test Item Value Reference Range Interpretation [...] = 2801) RAD, CHEST, 1 VIEW, NON [id number] 22:40:00Reason for exam:->strokeShould this be performed at the bedside?->[facility] 1980 Sex: FFINAL REPORT RAD, CHEST, 1 VIEW, NON DEPT TECHNIQUE: Frontal view(s) of the chest. INDICATION: stroke. COMPARISON: 08/20/2018 chest radiograph FINDINGS/IMPRESSION: Lines/Tubes: Unchanged 2-lead pacemaker Lungs/pleura: No focal consolidation or definite interstitial pulmonary edema. No pleural effusion. No pneumothorax. Heart and Mediastinum: Unremarkable. Soft Tissues and Bones: Unremarkable. Signed: Wilmer Nieves Verified Date/Time: 02/10/2021 22:40:02 Reading Location: [address] Transitional Reading Room XR chest 1 view portable / [id number] 22:40:00Interface, External Ris In - 02/10/2021 10:42 [...] Nieves Verified Date/Time: 02/10/2021 22:40:02 Reading Location: [address] Transitional Reading Room [facility] W/PLT COUNT & AUTO [id number] 22:16:00 Test Item Value Reference Range Interpretation [...] Range Interpretation Comments BNP (test code = 40356-5) <10 0-100 SOMMER (test code = SOMMER) Computer Networking Instructor ID - BS Lab Interpretation (test Normal code = 71338-8) [facility] HospitalB-TYPE NATRIURETIC FACTOR (BNP)2021-02-10 22:04:00 Test Item Value Reference Range Interpretation Comments B-TYPE NATRIURETIC PEPTIDE (BEAKER) < pg/mL 0-100 (test code = 700) Computer Networking Instructor ID - BSHigh Sensitivity Troponin I (BSC/Haley Only)2021-02-10 21:57:00 Test Item Value Reference Range Interpretation Comments Troponin I HS <4 See_Comment [Automated (test code = message] The 91310-0) system which generated this result transmitted reference range : <=17 pg/ml. The reference range was not used to interpret this result as normal/abnormal . SOMMER (test code = Computer Networking Instructor ID - SOMMER) BSThe CENTER REP STAT High Sensitivity Troponin-I results should be used in conjunction with other diagnostic information such as ECG, clinical observations and information, and patient symptoms to aid in the diagnosis of [place]. Lab Interpretation Normal (test code = 85834-0) [facility] HospitalHIGH SENSITIVITY TROPONIN [id number] 21:57:00 Test Item Value Reference Range Interpretation Comments HIGH SENSITIVITY < pg/ml See_Comment [Automated message] TROPONIN I (test code = The system which 5015377) generated this result transmitted ref erence range: <=17. Th e reference range was not used to interpr et this result as normal/abnormal . Computer Networking Instructor ID - BSThe CENTER REP STAT High Sensitivity Troponin-I results should be used in conjunctionwith other diagnostic information such as ECG, clinical observations and information, and patient symptoms to aid in the diagnosis of [place].Lipid [id number] 21:54:00 Test Item Value Reference Range Interpretation Comments Triglycerides (test 171 mg/dL Specimen code = 2571-8) markedly hemolyzed Cholesterol (test 218 mg/dL Specimen code = 2093-3) markedly hemolyzed HDL (test code = 47 mg/dL 2084-9) LDL Calculated (test 137 mg/dL code = 52326-5) SOMMER (test code = Triglyceride SOMMER) Reference Range: Low Risk <150 Borderline 150-199 High Risk 200-499 Very High Risk >=500 Cholesterol Reference Range: Low Risk <200 Borderline 200-239 High Risk >240 HDL Cholesterol Reference Range: Low Risk >=60 High Risk <40 LDL Cholesterol Reference Range: Optimal <100 Near Optimal 100-129 Borderline 130-159 High 160-189 Very High >=190 Computer Networking Instructor ID - BS [facility] HospitalLIPID [id number] 21:54:00 Test Item Value Reference Range Interpretation [...] Borderline 130-159 High 160-189 Very High >=190 Computer Networking Instructor ID - BSComprehensive metabolic [id number] 21:52:00 Test Item Value Reference Range Interpretation Comments Protein, Total 8.0 See_Comment Specimen slig htly (test code = hemolyzed 2884-2) [Automated message] The system which generated this result transmit aida reference range : 6.0 - 8.3 gm/dL . The reference range was not u sed to interpret th is result as normal/abnormal . Albumin (test code 4.2 g/dL 3.5-5 Specimen slightly = 31647-2) hemolyzed Alkaline 135 U/L 40-150 Phosphatase (test code = 6768-6) Total Bilirubin 0.2 mg/dL 0.2-1.2 Specimen sli ghtly (test code = hemolyzed 1974-) Sodium (test code = 139 meq/L 381-727 9952-2) Potassium (test 4.5 meq/L 3.5-5.1 Specimen sli ghtly code = 2823-3) hemolyzed Chloride (test code 103 meq/L 98-107 = 2075-0) CO2 (test code = 25 meq/L -29 2027-) BUN (test code = 9 mg/dL 7- 3094-0) Creatinine (test 0.78 mg/dL 0.57-1.25 Specimen sl ightly code = 2160-0) hemolyzed Glucose (test code 105 mg/dL 70-105 = 2345-7) Calcium (test code 9.6 mg/dL 8.4-10.2 = 65698-6) AST (test code = 28 U/L 5-34 Specimen sl ightly 1920-8) hemolyzed ALT (test code = 52 U/L 6-55 Specimen sl ightly 1742-6) hemolyzed EGFR (test code = 82 mL/min/1.73 [place] [address]-0) NOT ACCURATE CREATININE CLEARANCE IN PREDICTING GLOMERULAR FILTRATION RATE . ESTIMATED GFR I S NOT APPLICABLE FOR DIALYSIS PATIEN TS. SOMMER (test code = Computer Networking Instructor ID - BS SOMMER) [facility] HospitalCreatine Kinase (CK)2021-02-10 21:52:00 Test Item Value Reference Range Interpretation Comments Total CK (test code = 70 U/L 29-200 2157-6) SOMMER (test code = SOMMER) Computer Networking Instructor ID - BS Lab Interpretation (test Normal code = 89180-6) [facility] HospitalMAGNESIUM2021-05-19 21:52:00 Test Item Value Reference Range Interpretation Comments MAGNESIUM (BEAKER) 2.2 mg/dL 1.6-2.6 Specimen slightly (test code = 627) hemolyzed Computer Networking Instructor ID - [id number] 21:52:00 Test Item Value Reference Range Interpretation Comments PHOSPHORUS (BEAKER) 4.4 mg/dL 2.3-4.7 Specimen slightly (test code = 604) hemolyzed Computer Networking Instructor ID - BSCOMPREHENSIVE METABOLIC [id number] 21:52:00 Test Item Value Reference Range Interpretation [...] hemolyzed EGFR (BEAKER) (test 82 mL/min/1.73 ESTIMA IADA GFR IS code = 1092) sq m NOT ACCURATE CREATININE CLEARANCE IN PREDICTING GLOMERULAR FILTRATION RATE . ESTIMATED GFR I S NOT APPLICABLE FOR DIALYSIS PATIEN TS. Computer Networking Instructor ID - BSCREATINE KINASE (CK)2021-02-10 21:52:00 Test Item Value Reference Range Interpretation Comments CREATINE KINASE TOTAL (BEAKER) (test 70 U/L 29-200 code = 380) Computer Networking Instructor ID - [id number] 21:46:00 Test Item Value Reference Range Interpretation Comments PTT (test code = 38301-5) 30.5 See_Comment [ Automated message] The system [employer] generated this result transmitted ref erence range: 22.5 - 3 6.0 seconds. The re ference range was not u sed to interpret this result as normal/abnor mal. Lab Interpretation (test Normal code = 04165-8) [facility] HospitalLactic acid, [id number] 21:46:00 Test Item Value Reference Range Interpretation Comments Lactate, Venous (test 1.96 mmol/L 0.5-2.2 Specim en code = 2872) markedly hemolyzed SOMMER (test code = SOMMER) Computer Networking Instructor ID - BS Lab Interpretation Normal (test code = 69232-5) [facility] HospitalAPTT2021-05-19 21:46:00 Test Item Value Reference Range Interpretation Comments PARTIAL THROMBOPLASTIN TIME 30.5 seconds 22.5-36.0 (BEAKER) (test code = 760) LACTIC ACID, [id number] 21:46:00 Test Item Value Reference Range Interpretation Comments LACTATE BLOOD VENOUS 1.96 mmol/L 0.50-2.20 Specime n markedly (2) (BEAKER) (test hemolyzed code = 2872) Computer Networking Instructor ID - BSProthrombin time/[id number] 21:45:00 Test Item Value Reference Interpretation Comments [...] valves. Lab Interpretation Normal (test code = 09682-0) [facility] HospitalPROTHROMBIN TIME/[id number] 21:45:00 Test Item Value Reference Range Interpretation Comments PROTIME (BEAKER) 12.7 seconds 11.9-14.2 (test code = 759) INR (BEAKER) (test 0.98 See_Comment [Automat ed message] code = 370) The system [employer] h generated this result transmitted ref erence range: <=5.90. The reference range was not used to int erpret this result as normal/abnormal . RECOMMENDED COUMADIN/WARFARIN INR THERAPY RANGESSTANDARD DOSE: 2.0 - 3.0 Includes: PROPHYLAXIS forvenous thrombosis, systemic embolization; TREATMENT for venous thrombosis and/or pulmonary embolus.HIGH RISK: Target INR is 2.5-3.5 for patients with mechanical heart valves.POC-Glucose [id number] 21:39:00 Test Item Value Reference Range Interpretation Comments POC-Glucose Meter (test 93 mg/dL 70-110 : TE STED AT [facility] code = 1538) [address] [facility] [place], [address]: Computer Networking Instructor/Techni rhonda ID = [id number] for AILYN JAVIER Lab Interpretation (test Normal code = 35348-0) [facility] HospitalPOCT-GLUCOSE [id number] 21:39:00 Test Item Value Reference Range Interpretation Comments POC-GLUCOSE METER 93 mg/dL 70-110 : TESTED A T [facility] [address]20 (BEAKER) (test code = [address] [place], 1538) [address]: Computer Networking Instructor/Techni rhonda ID = [id number] for GERTRUDE SHAY [id number] 15:45:00 Test Item Value Reference Range Interpretation Comments SURG (test code = SURG) RUN DATE: 09/30/20 [facility] - LAB PAGE 1 RUN TIME: 1545 Specimen Inquiry RUN USER: INTERFACE PATIENT: ADAM MARSH LOC: [place] U #: [id number] AGE/SX: 40/F ROOM: RE09/29/20REG DR: Linus Boone MD : [birth year] BED: DIS: STATUS: DEP [facility] TLOC: SPEC #: [id number] RECD: 09/29/20 STATUS: MACIEL DEY #: [id number] WU: 09/29/[address]: Linus Boone MD ENTERED: 09/29/20 SP TYPE: SURG OTHR DR: Undefined Provider ORDERED: SURG PATH LVL 4 COPIES TO: Linus Boone MD [address] [place] [id number] Undefined Provider HISTOLOGY: TISSUE ID BLK PCS DHIRAJ LEV PROCEDURE DISPOSITION ____ ___ ___ ___ STOMACH, NOS A 1 2 PROCEDURES: SURG PATH LVL 4 (09/29/20) TISSUES: A. STOMACH, NOS - GASTRIC BIOPSY CLINICAL HISTORY R10.13, K21.9, K92.0, R14.0, R11.2, R19.7, R19.4 CPT CODES CPT CODE(S): 30316 , , , , , , FINAL DIAGNOSIS Stomach, biopsy: MILD CHRONIC GASTRITIS NEGATIVE FOR INTESTINAL METAPLASIA, DYSPLASIA, OR MALIGNANCY NEGATIVE FOR HELICOBACTER PYLORI ORGANISMS GROSS DESCRIPTION Gastric biopsy. Received in formalin are two wilkinson tissue fragments, 0.4 cm each, all as A. bk/nr Grossing performed at [facility] Pathology, [address], [address], [place] [address]. Power Cleaner Operator: Aditya Hanson M.D. CONTINUED ON NEXT PAGE RUN DATE: 09/30/20 [facility] [place] - [facility] PAGE 2 RUN TIME: 1545 Specimen Inquiry RUN USER: INTERFACE SPEC #: [id number]:[id number] PATIENT: ADAM MARSH #[id number] (Continued) MICROSCOPIC DESCRIPTION Gastric biopsy. Sections demonstrate gastric mucosa with mild chronic inflammation. No dysplasia or malignancy is identified. No evidence of Helicobacter pylori organisms or intestinal metaplasia is seen. Signed SIGNATURE ON FILE ShondapilarHector M 09/30/20 1545 END OF REPORT COVID 19 INHOUSE [id number] 13:41:00 Test Item Value Reference Range Interpretation Comments COVID 19 INHOUSE AG NEGATIVE Negative Per manu facturer, (test code = negative result s should [id number]) be treated aspr esumptive and, if inconsi [...] symptoms co nsistent with COVID-19. BASIC METABOLIC [id number] 13:40:00 Test Item Value Reference Range Interpretation [...] MG/DL 8.5-10.1 N - XR CHEST 1 [id number] 13:33:00 [facility] 1980 Sex: F Name: ADAM MARSH [place] : [birth year] Age/S: 40 / F [address] [place] [address] Unit #: [id number] Loc: [place] [address] Phys: Linus Boone MD Acct: [id number] Dis Date: Status: PRE [facility] PHONE #: [phone] Exam Date: 09/28/2020 1326 FAX #: Reason: PREOP EXAMS: CPT: [id number] XR CHEST 1 V 27672 Fluoro Time: DAP (Gy m2): Air Kerma [...] PAGE 1 Signed Report Name: ADAM MARSH [place] : 1980 Age/S: 40 / F [address] [place] [address] Unit #: [id number] Loc: [place] [address] Phys: Linus Boone MD Acct: [id number] Dis Date: Status: PRE [facility] PHONE #: [phone] Exam Date: 09/28/2020 1326 FAX #: Reason: PREOP EXAMS: CPT: [id number] XR CHEST 1 V 96123 Fluoro Time: DAP (Gy m2): Air Kerma (mGy): <Continued> Technologist: Shari Davila RT(R)(CT) Trnscb Date/Time: 09/28/2020 (2073) 16 Orig Print D/T: S: 09/28/2020 (2654) PAGE 2 SignedReportPROTHROMBIN [id number] 13:29:00 Test Item Value Reference Range Interpretation Comments PT PATIENT (test code = PTP) 10.6 SECONDS 9.3-12.9 N INTERNATIONAL NORMAL RATIO 0.95 INR Unit 0.8-1.2 N (test code = INR) THROMBOPLASTIN TIME [id number] 13:29:00 Test Item Value Reference Range Interpretation Comments THROMBOPLASTIN TIME PARTIAL 28.0 SECONDS 26-35 N (test code = PTT) CBC W/AUTO [id number] 13:26:00 Test Item Value Reference Range Interpretation [...] code NO DIFF/SCN CRITERIA = MDIFF) POCT-GLUCOSE [id number] 10:22:00 Test Item Value Reference Range Interpretation Comments POC-GLUCOSE METER 102 mg/dL 70-110 TESTED AT [place] [address] ([facility]) (test code = AYLIN Rivera [facility] 1538) [id number] MR, MRA, BRAIN, WITHOUT [id number] 09:32:00Reason for exam:->Ischemic Stroke EvaluationFINAL REPORT MRA Head CLINICAL HISTORY: Ischemic Stroke TECHNIQUE: MRA of the head utilizing 3-D clbc-xc-clsngt technique, with 3-D reconstructions. COMPARISON: None FINDINGS: There is no evidence of intracranial aneurysm, focal stenosis, or major branch vessel occlusion. IMPRESSION: No evidence for a major [place] proximal branch vessel occlusion. MRA Neck CLINICAL HISTORY: Ischemic Stroke TECHNIQUE: MRA of the neck utilizing 2-D and 3-D txhe-tm-fptmhd technique, with 3-D reconstructions. COMPARISON: None FINDINGS: The carotid arteries in the neck are patent including their bifurcations. There is antegrade flow in the vertebral arteries in the neck. IMPRESSION: No evidence of hemodynamically significant stenosis in the cervical carotid or vertebral arteries by NASCET criteria. Signed: Santos Winn MDReport Verified Date/Time: 08/21/2018 09:32:09 Reading Location: [address] Neuro Reading Room MR, MRA, NECK, WITHOUT IV [id number] 09:32:00Reason for exam:->Ischemic Stroke EvaluationFINAL REPORT MRA Head CLINICAL HISTORY: Ischemic Stroke TECHNIQUE: MRA of the head utilizing 3-D ancq-di-eznkom technique, with 3-D reconstructions. COMPARISON: None FINDINGS: There is no evidence of intracranial aneurysm, focal stenosis, or major branch vessel occlusion. IMPRESSION: No evidence for a major [place] proximal branch vessel occlusion. MRA Neck CLINICAL HISTORY: Ischemic Stroke TECHNIQUE: MRA of the neck utilizing 2-D and 3-D vltf-rj-bjafrx technique, with 3-D reconstructions. COMPARISON: None FINDINGS: The carotid arteries in the neck are patent including their bifurcations. There is antegrade flow in the vertebral arteries in the neck. IMPRESSION: No evidence of hemodynamically significant stenosis in the cervical carotid or vertebral arteries by NASCET criteria. Signed: Santos Winn Verified Date/Time: 08/21/2018 09:32:09 Reading Location: [address] Neuro Reading Room MR, BRAIN, WITHOUT [id number] 09:25:00Reason for exam:- >Ischemic Stroke EvaluationFINAL REPORT [...] Winn Verified Date/Time: 08/21/2018 09:25:25 Reading Location: [address] Neuro R eading Room POCT-GLUCOSE [id number] 21:26:00 Test Item Value Reference Range Interpretation Comments POC-GLUCOSE METER 119 mg/dL 70-110 H TESTED AT [place] [address] ([facility]) (test code = AYLIN Rivera [facility] 1538) [id number] POCT-GLUCOSE [id number] 18:03:00 Test Item Value Reference Range Interpretation Comments POC-GLUCOSE METER 119 mg/dL 70-110 H TESTED AT [place] [address] ([facility]) (test code = AYLIN Rivera [facility] 1538) [id number] POCT-GLUCOSE [id number] 12:39:00 Test Item Value Reference Range Interpretation Comments POC-GLUCOSE METER 120 mg/dL 70-110 H TESTED AT [place] [address] ([facility]) (test code = AYLIN Rivera [facility] 1538) [address] RAD, CHEST, 1 VIEW, NON [id number] 12:04:00Reason for exam:->To Locate Heart Device (Pacemaker)Should [...] MDReport Verified Date/Time: 08/20/2018 12:04:06 Reading Location: [facility] Radiology Reading Room POCT-GLUCOSE [id number] 09:17:00 Test Item Value Reference Range Interpretation Comments POC-GLUCOSE METER 121 mg/dL 70-110 H TESTED AT [place] [address] ([facility]) (test code = AYLIN Rivera [facility] 1538) [id number] BASIC METABOLIC [id number] 06:56:00 Test Item Value Reference Range Interpretation Comments SODIUM (BEAKER) 140 meq/L 136-145 (test code = 381) POTASSIUM (AKER) 4.0 meq/L 3.5-5.1 (test code = 379) [...] NOT APPLICABLE FOR DIALYSIS PATIEN TS. POCT-GLUCOSE [id number] 21:09:00 Test Item Value Reference Range Interpretation Comments POC-GLUCOSE METER 109 mg/dL 70-110 TESTED AT [facility] (test code = [facility] 1538) [address] POCT-GLUCOSE [id number] 17:15:00 Test Item Value Reference Range Interpretation Comments POC-GLUCOSE METER 117 mg/dL 70-110 H TESTED AT [place] [address] [facility] (test code = [facility] 1538) [address] VITAMIN B12 AND [id number] 06:39:00 Test Item Value Reference Range Interpretation Comments VITAMIN B12 (BEAKER) (test code = 524 pg/mL 213816 774) FOLATE (BEAKER) (test code = 362) 13.5 ng/mL >=7.0 BASIC METABOLIC [id number] 05:48:00 Test Item Value Reference Range Interpretation [...] S NOT APPLICABLE FOR DIALYSIS PATIEN TS. [id number] 15:42:00 Test Item Value Reference Range Interpretation Comments RPR SCREEN (BEAKER) (test code = Nonreactive Nonreactive 420) HEMOGLOBIN [id number] 09:14:00 Test Item Value Reference Range Interpretation Comments HEMOGLOBIN A1C (BEAKER) (test code = 5.3 % 4.3-6.1 368) TSH/FREE T4 IF [id number] 04:49:00 Test Item Value Reference Range Interpretation Comments THYROID STIMULATING HORMONE 3.18 uIU/mL 0.35-4.94 (BEAKER) (test code = 772) BASIC METABOLIC [id number] 04:38:00 Test Item Value Reference Range Interpretation [...] NOT APPLICABLE FOR DIALYSIS PATIEN TS. LIPID [id number] 04:38:00 Test Item Value Reference Range Interpretation [...] 130-159 High 160-189 Very High >=190HEPATIC FUNCTION [id number] 04:38:00 Test Item Value Reference Range Interpretation [...] (test code = 413) AFB Culture and [id number] 13:24:00Specimen/Source: Wound/PACEMAKERCollected: 09/05/2017 19:45 Status: Final Last Updated: 11/01/2017 13:24 [id number]-[id number]-Xexekydpsgjn (Final) (Final) 09/07/17 No acid fast bacill seen on direct smear Culture Result (Final) (Final) 11/01/17 No growth of AFB at six (6) weeksFungus Culture with [id number] 12:12:00 Specimen/Source: Wound/PACEMAKERCollected: 09/05/2017 19:45 Status: Final Last Updated: 10/22/2017 12:12 Fungal Smear Result (Final) (Final) 09/06/17 No yeast or hyphae seen Culture Result (Final) (Final) 10/22/17 No fungus isolated at 6 weeksCulture, Blood [id number] 08:23:00Specimen: BloodCollected: 09/04/2017 20:30 Status: Final Last Updated: 09/10/2017 08:23 Culture Result (Final) (Final) No Growth After 5 DaysCulture, Blood [id number] 08:23:00Specimen: BloodCollected: 09/04/2017 20:15 Status: Final Last Updated: 09/10/2017 08:23 Culture Result (Final) (Final) No Growth After 5 DaysCulture, Wound [id number] 08:52:00Specimen: WoundCollected: 09/05/2017 19:45 Status: Final Last Updated: 09/08/2017 08:52 Gram Stain (Final) (Final) 09/06/17 No organisms seen, Few WBC's Culture Result (Final) (Final) 09/08/17 Anaerobic culture:No anaerobes isolated at 3 days Isolate (Final) (Final) 09/07/17Few Staph-coag positive Isolate Staph-coag positive JERMAINE (mcg/ml) Amoxicillin/Clav (AUG)<=4/2 Susceptible Ampicillin (AM) >8 Resistant Ampicillin/Sulb (A/S) <=8/4 Susceptible Cefazolin (CFZ) <=4 Susceptible Ceftriaxone (BEHAVIORAL MEDICAL DIRECTOR) <=4 Susceptible Chloramphenicol (C) <=8 Susceptible Ciprofloxacin (CP) <=1 Susceptible Clindamycin (CM) 0.5 Susceptible Erythromycin (E) <=0.25 Susceptible Gentamicin (GM) <=1 Susceptible Imipenem (IMP) <=4 Susceptible Levofloxacin (LEV) <=0.5 Susceptible Linezolid (LNZ) 4 Susceptible Oxacillin (OX1) 0.5 Susceptible Penicillin (P) >8 Resistant Rifampin (RA) <=1 Susceptible Tetracycline (TE) <=1 Susceptible Trimethoprim/Sulfa <=0.5/9.Susceptible (SXT) 5 Vancomycin (VA) 2 SusceptibleRenal [id number] 08:51:00 Test Item Value Reference Range Interpretation [...] National Kidney Foundation,http :[email or web address] ep.nih.gov CBC with [id number] 07:39:00 Test Item Value Reference Range Interpretation [...] code = ALYMPH) 1.7 K/cumm 0.5-4.6 N [place] Abs (test code = AMONO) 0.3 K/cumm 0.0-1.2 N Eos Abs (test code = AEOS) 0.29 K/cumm 0.00-0.74 N Baso Abs (test code = ABASO) 0.0 K/cumm 0.00-0.21 N Vancomycin, [id number] 12:33:00 Test Item Value Reference Range Interpretation Comments Vanco, Trou (test code = VANTR) 7.9 ug/mL 10.0-20.0 L Magnesium, [id number] 06:37:00 Test Item Value Reference Range Interpretation Comments Magnesium (test code = MG) 2.4 mg/dL 1.7-2.5 N Renal [id number] 06:29:00 Test Item Value Reference Range Interpretation [...] National Kidney Foundation,http ://nkd ep.nih.gov BHCG, Serum, [id number] 06:26:00 Test Item Value Reference Range Interpretation Comments Preg Qual [Se] (test code = BSHCG) Negative Negative N CBC with [id number] 06:24:00 Test Item Value Reference Range Interpretation [...] code = ALYMPH) 1.6 K/cumm 0.5-4.6 N [place] Abs (test code = AMONO) 0.4 K/cumm 0.0-1.2 N Eos Abs (test code = AEOS) 0.18 K/cumm 0.00-0.74 N Baso Abs (test code = ABASO) 0.0 K/cumm 0.00-0.21 N XR CHEST 1 [id number] 16:29:55XR CHEST 1 VIEWLOCATION: [id number]: None.INDICATION: REVIEW PICC LINE PLACEMENTDISCUSSION:AP chest and [...] = TSH) 3.44 mIU/mL 0.270-4.200 N Lipid [id number] 05:47:00 Test Item Value Reference Range Interpretation Comments Cholesterol (test 160 mg/dL 0-200 N code = CHOL) Triglycerides (test 126 mg/dL 9-200 N code = TRIG) HDL (test code = 35 mg/dL 50-60 L HDL) Chol/HDL (test code 4.6 Ratio 0.0-4.4 H = CHOLPHDL) LDL, Calculated 100 0-130 N (NOTE)RISK O F HEART (test code = LDLC) DISEASEPu blished by [place] Heart AssociationAnal yte Optim al Boderline Increased RiskC HOL <200 200-239 >240TRI G <150 150-199 >200HDL Male: >60 <40HDL Female: >60 <50 LDL < 100 130-15 9 >160 LDL NEAR OPTIMAL IS 100- 129 VLDL (test code = 25 mg/dL 5-40 N VLDL) LDL/HDL (test code = 3 LDLPHDL) Basic Metabolic [id number] 05:47:00 Test Item Value Reference Range Interpretation [...] the National Kidney Foundation,http ://nkd ep.nih.gov Magnesium, [id number] 05:47:00 Test Item Value Reference Range Interpretation Comments Magnesium (test code = MG) 2.3 mg/dL 1.7-2.5 N CBC with [id number] 05:36:00 Test Item Value Reference Range Interpretation [...] code = ALYMPH) 2.2 K/cumm 0.5-4.6 N [place] Abs (test code = AMONO) 0.3 K/cumm 0.0-1.2 N Eos Abs (test code = AEOS) 0.24 K/cumm 0.00-0.74 N Baso Abs (test code = ABASO) 0.0 K/cumm 0.00-0.21 N Partial Thromboplastin [id number] 21:26:00 Test Item Value Reference Range Interpretation Comments aPTT (test code = PTT) 29.00 seconds 24.39-37.25 N Prothrombin [id number] 21:26:00 Test Item Value Reference Range Interpretation Comments PT (test code = PT) 10.70 seconds 9.78-13.35 N INR (test code = INR) 0.95 Ratio 0.6-1.2 N Comprehensive Metabolic [id number] 21:23:00 Test Item Value Reference Range Interpretation [...] National Kidney Foundation,http ://nkd ep.nih.gov CBC with [id number] 21:16:00 Test Item Value Reference Range Interpretation [...] code = ALYMPH) 2.2 K/cumm 0.5-4.6 N [place] Abs (test code = AMONO) 0.4 K/cumm 0.0-1.2 N Eos Abs (test code = AEOS) 0.17 K/cumm 0.00-0.74 N Baso Abs (test code = ABASO) 0.1 K/cumm 0.00-0.21 N
[2022-03-08 02:05] LABS: Urine Blood Negative (Negative); Urine Glucose Negative (Negative); Urine Protein Negative (Negative); Urine Specific Gravity 1.025 (1.005-1.030)
[2022-03-08 02:15] LABS: Absolute Lymphocytes (CBC) 2.6 K/uL (0.7-4.9); Hematocrit 43.3 % (36.0-45.0); Lymphocytes % 32.1 % (15.3-44.8); MPV 8.8 fL (7.6-11.3); RBC Red Blood Cell Count 5.07 M/uL (3.86-4.86)
[2022-03-08 03:29] LABS: Albumin 3.7 g/dL (3.4-5.0); Alkaline Phosphatase 126 U/L (45-117); BUN Blood Urea Nitrogen 13 mg/dL (7-18); Bicarbonate 26 mmol/L (21-32); Bilirubin Total 0.3 mg/dL (0.2-1.0); Glomerular Filtration Rate 89 ml/min (=/>90); Glucose Level 101 mg/dL (74-106); Lipase 132 U/L (73-393); Protein, Total 7.7 g/dL (6.4-8.2); Sodium Level 139 mmol/L (136-145)
[2022-03-08 03:31] LABS: Potassium 3.9 mmol/L (3.5-5.1)
[2022-03-08] MEDS ORDERED: HYDROMORPHONE HCL 0.5 MG/0.5 ML INJ ONE (03:37)
[2022-03-08] MEDS ORDERED: ONDANSETRON 4 MG/2 ML VIAL ONE (03:38)
[2022-03-08] MEDS ORDERED: NA CHLORIDE 0.9% 500 ML ONE (03:38)
--- NOTE | 2022-03-08 04:06 | EDPHYS ---
Physician Documentation [facility] Name: Jenni Draper Age: 41 yrs Sex: Female : 1980 Arrival Date: 03/08/2022 Time: 01:08 Bed 4 Private MD: Caio Polanco HPI: 03/08 03:58 This 41 yrs old Female presents to ER via Wheelchair with complaints of taty Abdominal Pain. 03:58 The patient presents with abdominal pain in the epigastric area, in the upper abdomen, taty abdominal distention in the epigastric area, in the upper abdomen. Onset: The symptoms/episode began/occurred 2 day(s) ago. The symptoms do not radiate. Associated signs and symptoms: Pertinent positives: nausea and vomiting. Modifying factors: The symptoms are alleviated by remaining still, the symptoms are aggravated by movement. Severity of pain: At its worst the pain was mild today, last night. APPLICATION DBA: 01:23 LMP N/A - Hysterectomy bb Historical: - Allergies: 01:23 Adhesives; bb 01:23 Aspirin; bb 01:23 Bactrim; bb 01:23 Benadryl; bb 01:23 Cipro IV; bb 01:23 Clindamycin; bb 01:23 coconut oil; bb 01:23 Detrol; bb 01:23 Diltiazem; bb 01:23 Doxycycline; bb 01:23 FISH PRODUCT DERIVATIVES; bb 01:23 GABAPENTIN; bb 01:23 Iodine; bb 01:23 ivabradine; bb 01:23 Latex, Natural Rubber; bb 01:23 Morphine; bb 01:23 PENICILLINS; bb 01:23 tramadol; bb 01:23 Hydrocodone-Acetaminophen; bb 01:23 Seroquel; bb 01:23 cefixime; bb 01:23 Sulfa (Sulfonamide Antibiotics); bb - Immunization history:: Moderna x 2. - Social history:: Smoking status: Patient denies any tobacco usage or history of. - Family history:: not pertinent. ROS: 03:58 Constitutional: Negative for fever, chills, and weight loss, Eyes: Negative for injury, taty pain, redness, and discharge, ENT: Negative for injury, pain, and discharge, Neck: Negative for injury, pain, and swelling, Cardiovascular: Negative for chest pain, palpitations, and edema, Abdomen/GI: Negative for abdominal pain, nausea, vomiting, diarrhea, and constipation, Back: Negative for injury and pain, : Negative for injury, bleeding, discharge, and swelling, MS/Extremity: Negative for injury and deformity, Skin: Negative for injury, rash, and discoloration, Neuro: Negative for headache, weakness, numbness, tingling, and seizure, Psych: Negative for depression, anxiety, suicide ideation, homicidal ideation, and hallucinations, Allergy/Immunology: Negative for hives, rash, and allergies, Endocrine: Negative for neck swelling, polydipsia, polyuria, polyphagia, and marked weight changes, Hematologic/Lymphatic: Negative for swollen nodes, abnormal bleeding, and unusual bruising. 03:58 Respiratory: Negative for cough, dyspnea on exertion, hemoptysis, orthopnea, pleurisy, shortness of breath, sputum production, wheezing, acute changes. Exam: 04:01 Constitutional: This is a well developed, well nourished patient who is awake, alert, taty and in no acute distress. Head/Face: Normocephalic, atraumatic. Eyes: Pupils equal round and reactive to light, extra-ocular motions intact. Lids and lashes normal. Conjunctiva and sclera are non-icteric and not injected. Cornea within normal limits. Periorbital areas with no swelling, redness, or edema. ENT: Nares patent. No nasal discharge, no septal abnormalities noted. Tympanic membranes are normal and external auditory canals are clear. Oropharynx with no redness, swelling, or masses, exudates, or evidence of obstruction, uvula midline. Mucous membranes moist. Neck: Trachea midline, no thyromegaly or masses palpated, and no cervical lymphadenopathy. Supple, full range of motion without nuchal rigidity, or vertebral point tenderness. No Meningismus. Chest/axilla: Normal chest wall appearance and motion. Nontender with no deformity. No lesions are appreciated. Cardiovascular: Regular rate and rhythm with a normal S1 and S2. No gallops, murmurs, or rubs. Normal PMI, no JVD. No pulse deficits. Respiratory: Lungs have equal breath sounds bilaterally, clear to auscultation and percussion. No rales, rhonchi or wheezes noted. No increased work of breathing, no retractions or nasal flaring. Back: No spinal tenderness. No costovertebral tenderness. Full range of motion. Skin: Warm, dry with normal turgor. Normal color with no rashes, no lesions, and no evidence of cellulitis. MS/ Extremity: Pulses equal, no cyanosis. Neurovascular intact. Full, normal range of motion. Neuro: Awake and alert, GCS 15, oriented to person, place, time, and situation. Cranial nerves II-XII grossly intact. Motor strength 5/5 in all extremities. Sensory grossly intact. Cerebellar exam normal. Normal gait. Psych: Awake, alert, with orientation to person, place and time. Behavior, mood, and affect are within normal limits. 04:01 Abdomen/GI: Inspection: distension, that is mild, Bowel sounds: active, all quadrants, Palpation: soft, nontender, Indicators: Liver: no appreciated palpable abnormalities, Hernia: not appreciated. Vital Signs: 01:21 BP 111 / 90; Pulse 98; Resp 16 S; Temp 97.7(TE); Pulse Ox 98% on R/A; Weight 56.7 kg bb (R); Height 4 ft. 11 in. (149.86 cm) (R); Pain 9/10; 02:30 BP 128 / 90; Pulse 77; Resp 20 S; Pulse Ox 98% on R/A; as6 03:48 BP 132 / 94; Pulse 80; Resp 18 S; Pulse Ox 97% on R/A; as6 04:25 BP 136 / 88; Pulse 79; Resp 18 S; Pulse Ox 96% on R/A; as6 01:21 Body Mass Index 25.25 (56.70 kg, 149.86 cm) bb MDM: 01:31 Patient medically screened. taty 04:02 Differential diagnosis: gastritis, Menorrhagia, myocardia ischemia or infarction, taty pancreatitis. Data reviewed: vital signs, nurses notes, lab test result(s). 03/08 01:45 Order name: CBC with Diff; Complete Time: 03:56 as6 03/08 01:45 Order name: CMP 03/08 01:45 Order name: Lipase 03/08 02:05 Order name: Urine Dipstick-Ancillary; Complete Time: 03:56 EDMS 03/08 01:45 Order name: IV Saline Lock; Complete Time: 03:24 as6 03/08 01:45 Order name: Labs collected and sent; Complete Time: 02:05 as6 14 01:45 Order name: Urine Dipstick-Ancillary (obtain specimen); Complete Time: 02:05 Administered Medications: 03:35 Drug: NS 0.9% 500 ml Route: IV; Rate: bolus; Site: left hand; as6 04:26 Follow up: Response: No adverse reaction; IV Status: Completed infusion; IV Intake: as6 500ml 03:35 Drug: Zofran (Ondansetron) 4 mg Route: IVP; Site: left hand; as6 04:26 Follow up: Response: No adverse reaction as6 03:35 Drug: Dilaudid (HYDROmorphone) 0.5 mg Route: IVP; Site: left hand; as6 04:26 Follow up: Response: No adverse reaction; RASS: Alert and Calm (0) as6 Disposition Summary: 03/08/22 04:05 Discharge Ordered Location: Home taty Problem: new taty Symptoms: have improved taty Condition: Stable taty Diagnosis - Abdominal pain, unspecified taty Followup: taty - With: Private Physician - When: 2 - 3 days - Reason: Recheck today's complaints, Continuance of care, Re-evaluation by your physician Followup: taty - With: Linus Boone MD - When: 2 - 3 days - Reason: Recheck today's complaints, Continuance of care, Re-evaluation by your physician Discharge Instructions: - Discharge Summary Sheet [facility] Forms: - Medication Reconciliation Form taty - Thank You Letter taty - Antibiotic Education taty - Prescription Opioid Use [facility] Prescriptions: - Zofran 4 mg Oral Tablet - take 1 tablet by ORAL route every 12 hours As needed; 20 tablet; Refills: 0, [facility] Product Selection Permitted - dicyclomine 20 mg Oral Tablet - take 1 tablet by ORAL route 4 times per day; 28 tablet; Refills: 0, Product [facility] Selection Permitted Signatures: Dispatcher [employer] Caio Marques MD MD cha Ballard, Brenda RN Román Banks RN RN as6
--- NOTE | 2022-03-08 04:06 | ER ---
Nurse's Notes [facility] Name: Jenni Draper Age: 41 yrs Sex: Female : 1980 Arrival Date: 03/08/2022 Time: 01:08 Bed 4 Private MD: Diagnosis: Abdominal pain, unspecified Presentation: 03/08 01:21 Chief complaint: Patient states: she is having low abdominal pain at site off bb hysterectomy incision is denies vomiting, diarrhea, fever. Coronavirus screen: At this time, the client does not indicate any symptoms associated with coronavirus-19. Ebola Screen: No symptoms or risks identified at this time. Initial Sepsis Screen: Does the patient meet any 2 criteria? No. Patient's initial sepsis screen is negative. Does the patient have a suspected source of infection? No. Patient's initial sepsis screen is negative. Risk Assessment: Do you want to hurt yourself or someone else? Patient reports no desire to harm self or others. Onset of symptoms was March 08, 2022. 01:21 Method Of Arrival: Wheelchair bb 01:21 Acuity: LYUBOV 3 bb Triage Assessment: 01:23 General: Appears in no apparent distress. uncomfortable, Behavior is calm, cooperative. bb Pain: Complains of pain in abdomen Pain currently is 8 out of 10 on a pain scale. Neuro: Level of Consciousness is awake, alert, obeys commands, Oriented to person, place, time, situation. Cardiovascular: Capillary refill < 3 seconds Patient's skin is warm and dry. Respiratory: Respiratory effort is even, unlabored. GI: Abdomen is obese, Reports lower abdominal pain, Patient currently denies diarrhea, vomiting. : Denies burning with urination. Derm: Skin is pink, warm \T\ dry. Musculoskeletal: Circulation, motion, and sensation intact. EMBALMER/FUNERAL DIRECTOR: 01:23 LMP N/A - Hysterectomy bb Historical: - Allergies: 01:23 Adhesives; bb 01:23 Aspirin; bb 01:23 Bactrim; bb 01:23 Benadryl; bb 01:23 Cipro IV; bb 01:23 Clindamycin; bb 01:23 coconut oil; bb 01:23 Detrol; bb 01:23 Diltiazem; bb 01:23 Doxycycline; bb 01:23 FISH PRODUCT DERIVATIVES; bb 01:23 GABAPENTIN; bb 01:23 Iodine; bb 01:23 ivabradine; bb 01:23 Latex, Natural Rubber; bb 01:23 Morphine; bb 01:23 PENICILLINS; bb 01:23 tramadol; bb 01:23 Hydrocodone-Acetaminophen; bb 01:23 Seroquel; bb 01:23 cefixime; bb 01:23 Sulfa (Sulfonamide Antibiotics); bb - Immunization history:: Moderna x 2. - Social history:: Smoking status: Patient denies any tobacco usage or history of. - Family history:: not pertinent. Screenin:06 Abuse screen: Denies threats or abuse. Denies injuries from another. Nutritional as6 screening: No deficits noted. Tuberculosis screening: No symptoms or risk factors identified. Fall Risk None identified. Assessment: 02:06 General: Appears in no apparent distress. Behavior is calm, cooperative. Pain: as6 Complains of pain in abdomen Quality of pain is described as crampy, sharp. Neuro: Foss Agitation-Sedation Scale (RASS): 0 - Alert and Calm Level of Consciousness is awake, alert, obeys commands, Oriented to person, place, time, situation. Cardiovascular: JVD is absent Patient's skin is warm and dry. Respiratory: Respiratory effort is even, unlabored, Respiratory pattern is regular, symmetrical. GI: Reports lower abdominal pain, Patient currently denies diarrhea, vomiting. Vital Signs: 01:21 BP 111 / 90; Pulse 98; Resp 16 S; Temp 97.7(TE); Pulse Ox 98% on R/A; Weight 56.7 kg bb (R); Height 4 ft. 11 in. (149.86 cm) (R); Pain 9/10; 02:30 BP 128 / 90; Pulse 77; Resp 20 S; Pulse Ox 98% on R/A; as6 03:48 BP 132 / 94; Pulse 80; Resp 18 S; Pulse Ox 97% on R/A; as6 04:25 BP 136 / 88; Pulse 79; Resp 18 S; Pulse Ox 96% on R/A; as6 01:21 Body Mass Index 25.25 (56.70 kg, 149.86 cm) ED Course: 01:08 Patient arrived in ED. ja2 01:23 Triage completed. bb 01:23 Arm band placed on Patient placed in an exam room, on a stretcher, on pulse oximetry. bb Family accompanied patient. 01:31 Caio Aceves MD is Attending Physician. taty 01:32 Román Bell, LAUREL is Primary Nurse. as6 02:00 Bed in low position. Call light in reach. Side rails up X2. Pulse ox on. NIBP on. Warm as6 blanket given. 03:30 Inserted saline lock: 22 gauge in left hand, using aseptic technique. as6 04:04 Linus Boone MD is Referral Physician. taty 04:24 No provider procedures requiring assistance completed. IV discontinued, intact, as6 bleeding controlled, No redness/swelling at site. Pressure dressing applied. Administered Medications: 03:35 Drug: NS 0.9% 500 ml Route: IV; Rate: bolus; Site: left hand; as6 04:26 Follow up: Response: No adverse reaction; IV Status: Completed infusion; IV Intake: as6 500ml 03:35 Drug: Zofran (Ondansetron) 4 mg Route: IVP; Site: left hand; as6 04:26 Follow up: Response: No adverse reaction as6 03:35 Drug: Dilaudid (HYDROmorphone) 0.5 mg Route: IVP; Site: left hand; as6 04:26 Follow up: Response: No adverse reaction; RASS: Alert and Calm (0) as6 Medication: 04:25 VIS not applicable for this client. as6 Intake: 04:26 IV: 500ml; Total: 500ml. as6 Outcome: 04:05 Discharge ordered by . taty 04:25 Discharged to home ambulatory, with significant other. as6 04:25 Condition: stable 04:25 Discharge instructions given to patient, significant other, Instructed on discharge instructions, follow up and referral plans. medication usage, Demonstrated understanding of instructions, follow-up care, medications, Prescriptions given X 2. 04:26 Patient left the ED. as6 Signatures: Caio Aceves MD MD cha Ballard, Brenda, RN RN Julia Saul Ashby, LAUREL RN as6
[2022-03-08 04:36] LABS: ALT/SGPT ND U/L (12-78); AST/SGOT ND U/L (15-37)
[2022-03-08 04:46] VITALS: TEMP 97.7
[2022-03-08 05:04] VITALS: BP 136/88; O2SAT 96
== END 2022-03-08 04:26 | disposition home or self-care (01) ==
LOC: ER 01:06
DX: R10.13 Epigastric pain (principal); Z88.0 Allergy status to penicillin; Z88.1 Allergy status to other antibiotic agents; Z88.2 Allergy status to sulfonamides; Z88.3 Allergy status to other anti-infective agents; Z88.5 Allergy status to narcotic agent; Z88.6 Allergy status to analgesic agent; Z88.8 Allergy status to other drugs, medicaments and biological substances; Z91.013 Allergy to seafood; Z91.040 Latex allergy status; Z91.048 Other nonmedicinal substance allergy status
CPT/HCPCS: 85025; 36415; 81003; 83690; 80053; J1170; J7040; J2405; 96361; 96374; 96375; 99284

== ENCOUNTER 2022-03-18 22:34 | Emergency (ER) | payer OTHER ==
--- OUTSIDE RECORDS SUMMARY | 2022-03-18 22:41 | XMS REPORT | Continuity of Care Document ---
:1980 Author Organization [facility] t Address [address] [place] [address] Care Team Providers Name Role Phone MIMA VELAZQUEZ Primary Care Physician Unavailable ZAKIA VERA Attending Clinician Unavailable Shauna Boone Attending Clinician Unavailable Chiquis LARSEN Attending Clinician Ernst LARSEN Attending Clinician Lena COLBERT Attending Clinician Unavailable Doctor Unassigned, Name Attending Clinician Unavailable Malena VEGA Attending Clinician Omari RALPH Attending Clinician Unavailable Antonio LARSEN, T. Attending Clinician Andrea Bolanos MD Attending Clinician Sho LARSEN Attending Clinician Zakia Vera MD Attending Clinician Unavailable LEONOR Attending Clinician Unavailable LINETTE Attending Clinician Unavailable ZAKIA VERA Admitting Clinician Unavailable Lena COLBERT Admitting Clinician Unavailable SHO Admitting Clinician Unavailable LEONOR Admitting Clinician Unavailable LINETTE Admitting Clinician Unavailable Payers Payer Name Policy Type Policy Number Effective Expiration Source Date Date GENERIC MEDICAID HMO [id number] 2011 00:00:00 [facility] [id number] 2011 Met panda STAR[facility]US 00:00[id number]- PresentO SOLORIO [id number] [address] [facility] MEDICAIDMEDICAID 00:00:00 Medical [id number] 018-Present Problems Condition Condition Condition Status Onset Resolution Last Treating Co mments Source Name Details Category Date Date Treatment Clinician Date History of History of Disease Active U nivers DVT (deep DVT (deep 4-11 ity of vein vein 00:00: [place] thrombosis thrombosis 00 Me dical ) ) Branch Palpitatio Palpitatio Disease Active U nivers ns ns 4-11 ity of 00:00: 00 Medical Branch Elevated Elevated Disease Active Unive rs d-dimer d-dimer 7- ity of 00:00: Medical Branch Left-sided Left-sided Disease Active [facility] weakness weakness 02[facility]12 [facility] Received Received Disease [facility] tissue tissue 02[facility]12 [facility] plasminoge plasminoge 00:00: Me dical n n 00 Center activator activator (t-PA) (t-PA) less than less than 24 hours 24 hours prior to prior to arrival arrival Acute Acute Disease Active [facility] ischemic ischemic 5-20 [facility] stroke stroke 00:00: Medical 00 [place] Chest pain Chest pain Disease Active [facility] in adult in adult 4-20 [facility] 00:00: Medical 00 [place] Atypical Atypical Disease Active Unive rs chest [...] 2-04 ity of 00:00: [place] 00 [facility] PVT PVT Disease Active Univers (paroxysma (paroxysma 2-04 it y of l l 00:00: [place] ventricula ventricula 00 Me dical r r Branch tachycardi tachycardi a) a) Digoxin Digoxin Disease Active Univers toxicity toxicity 2-04 ity of 00:00: [place] 00 [facility] Branch Atrial Atrial Disease Active Univers fibrillati fibrillati 2-04 it y of on on 00:00: [place] 00 [facility] Branch Seizure Seizure Disease Active 2018-09 Univers disorder disorder 2-01 ity of 00:00: [place] 00 [facility] AN AN Disease Active 2019 Univers (dyspnea (dyspnea 2-01 ity of on on 00:00: [place] exertion) exertion) 00 [facility] Mitral Mitral Disease Active Univers valve valve 8-05 ity of regurgitat regurgitat 00:[place] 00 [facility] Excessive Excessive Disease Active Uni vers anticoagul anticoagul 8-05 it y of ation ation 00:00: [place] 00 [facility] Branch Deep vein Deep vein Disease Active Uni vers thrombosis thrombosis 8-05 it y of of lower of lower 00:00: [place] extremity extremity 00 [facility] Anxiety Anxiety Disease Active 2019 Univers disorder disorder 8-05 ity of 00:00: [place] 00 [facility] Branch Asthma Asthma Disease Active 2019- Univers 8-05 ity of 00:00: [place] 00 [facility] Branch E44.0 E44.0 Disease Active [...] Added automatic ally from request for surgery [id number] Abdominal Abdominal Disease Active 2017-09 Overview: Univers pain, pain, 0-19 Formatt[place] ity of unspecifie unspecifie 00:00: g of this [place] d d 00 note Medical abdominal abdominal might be Br anch location location different from the original. Added automatic ally from request for surgery [id number] Nausea and Nausea and Disease Active 2017-09 Overview : Univers vomiting, vomiting, 0-19 Formattin i ty of intractabi intractabi 00:00: g of this [place] lity of lity of 00 note Medical vomiting vomiting might be Bran ch not not different specified, specified, from the unspecifie unspecifie original. d vomiting d vomiting Added type type automatic ally from request for surgery [id number] Non-cardia Non-cardia Disease Active U yossiers c chest c chest 04-27 ity of pain pain 00:00: [place] [facility] Essential Essential Disease Active Uni vers hypertensi hypertensi 04-27 it y of on on 00:00: [place] [...] 00[place] in situ [place] situ [place] Tachycardi Tachycardi Disease Active U [...] numbness numbness 6-28 ity of 00:00: [place] [facility] Prediabete Prediabete Disease Active 2012-09 U nivers s s 2-31 ity of 00:00: [place] [facility] Loss of Loss of Disease Active 2012-09 Univers weight weight 2-31 ity of 00:00: [place] [facility] Hypothyroi Hypothyroi Disease Active 2012-09 Overview : Univers dism dism Formattin ity of 00:00: g of this [place] note Medical might be Branch different from the original. ICD10 Diagnosis Term [employer] Hypoglycem Hypoglycem Disease Active 2012-09 Overview : Univers ia ia 10-21 Formattin ity of 00:00: g of this [place] note Medical might be Branch different from the original. ICD10 Diagnosis Term [employer] Cerebrovas Cerebrovas Disease Resolve 2021-02-12 2021-02-12 [...] [facility] prim -04 [place] 00:00: d 00 [facility] Center ciproflo DA Active SV 2020-0 [facility] xacin - [place] 00:00: d 00 [facility] Center adhesive DA Active SV 2020-0 [facility] tape - [place] 00:00: d 00 Medical Center tramadol DA Active SV 2020-0 [facility] -04 [place] 00:00: d 00 [facility] gabapent DA Active SV 2020-0 [facility] in - [place] 00:00: d 00 Medical [place] diltiaze DA Active SV 2020-0 [facility] m -04 [place] 00:00: d 00 [facility] Center diphenhy DA Active SV 2020-0 [facility] dramine - [place] 00:00: d 00 [facility] Center topirama DA Active SV 2020-0 [facility] te -04 [place] 00:00: d 00 [facility] levoflox DA Active SV 2020-0 [...] ne - [place] 00:00: d 00 Medical [place] coconut FA Active MO 1-0 [facility] -04 [place] 00:00: d 00 Medical Center Penicill DA Active SV ANAPHYLAXIS 2020-0 [facility] ins SHOCH - [place] 00:00: d 00 [facility] Center [...] [facility] in -04 [place] 00:00: d 00 [facility] Center cefixime DA Active MO HIVES 2020-0 [facility] -04 [place] 00:00: d 00 [facility] Center doxycycl DA Active SV RASH 2020-0 [facility] ine - [place] 00:00: d 00 [facility] Center clindamy DA Active MO RASH 2020-0 [facility] stephan 1-04 [place] 00:00: d 00 [facility] Center sulfamet DA Active MO RASH 2020-0 [facility] hoxazole 1-04 [place] 00:00: d 00 [facility] Center trimetho DA Active MO RASH 2020-0 [facility] prim 1-04 [place] 00:00: d 00 [facility] ciproflo DA Active SV HIVES 2020-0 [facility] xacin -04 [place] 00:00: d 00 [facility] adhesive DA Active SV BLISTERS 2020-0 [facility] tape -04 [place] 00:00: d 00 Medical Center tramadol DA Active SV HIVES 2020-0 [facility] 1-04 [place] 00:00: d 00 [facility] Center gabapent DA Active SV RASH 2020-0 [...] te LOSS - [place] 00:00: d 00 [facility] Center levoflox DA Active SV HIVES 2020-0 [facility] acin 1-04 [place] 00:00: d 00 Medical Center quetiapi DA Active MO RASH [facility] ne 1-04 [place] 00:00: d Medical Center tolterod DA Active MO RASH [facility] ine 1-04 [place] 00:00: d 00 [facility] latex DA Active SV BLISTERS [facility] 1-04 [place] 00:00: d 00 Medical [place] ivabradi DA Active MO RASH [facility] ne 1-04 [place] 00:00: d 00 [facility] coconut FA Active MO RASH [facility] 1-04 [place] 00:00: d 00 [facility] Topirama Propensi Active Anaphylaxis 2019-0 [...] to drug FISH Drug Active High Anaphylaxis Unive rs CONTAINI Class 8-05 ity of NG 00:00: [place] PRODUCTS 00 Medical Branch DOXYCYCL DRUG Active Rash Univers INE INGREDI 8-05 ity of 00:00: [place] 00 Medical Branch CEFIXIME DRUG Active Low Rash Univers INGREDI 8-05 ity of 00:00: [place] 00 Medical Branch Cefixime Propensi Active Rash Univer s ty to 8-05 ity of adverse 00:00: [place] reaction 00 Medical s Branch Doxycycl Propensi Active Rash 2018-0 Univer s ine ty to 04-29 ity of adverse 00:00: [place] reaction 00 Medical s Branch Fish Propensi Active Anaphylaxis 2018- Family Uni vers Containi ty to 04-29 history ity of ng adverse 00:00: of [place] Products reaction 00 allergic Medi blane s reaction. Branch Cephalex Propensi Active Anaphylaxis M ethodi in ty to 04-29 st adverse 00:00: Hospita reaction 00 l s to drug Doxycycl Propensi Active Rash 2018- Method i ine ty to 04-29 st adverse 00:00: Hospita reaction 00 l s to drug Levoflox Propensi Active Anaphylaxis 2018- M ethodi acin ty to 04-29 adverse 00:00: Hospita reaction 00 l s to drug CEFIXIME Allergy Active Low Rash 2017-09 [facility] 10-17 00:00: 00 TRAMADOL Allergy Active Low Rash 2017-09 [facility] 10-17 00:00: 00 SULFAMET Allergy Active High Anaphylaxis 2017-09 [facility] HOXAZOLE 10-17 -TRIMETH 00:00: OPRIM 00 GABAPENT Allergy Active High Sob 2017-09 [facility] IN 10-17 00:00: 00 IODINE Allergy Active High Rash 2017-09 [facility] AND 10-17 IODIDE 00:00: CONTAINI 00 NG PRODUCTS MORPHINE Allergy Active High Anaphylaxis 2017-09 [facility] 10-17 00:00: 00 PENICILL Allergy Active High Anaphylaxis 2017-09 [facility] INS 10-17 00:00: 00 DIPHENHY Allergy Active [...] St dramine ty to Vomiting 10-17 [facility] Hcl adverse 00:00: Medical reaction 00 Center s Ciproflo Propensi Active 2017-[address] xacin ty to 10-17 aches. [facility] adverse 00:00: Medical reaction 00 Center s Clindamy Propensi Active Rash 2017-[address] [facility] stephan ty to 10-17 [facility] adverse 00:00: Medical reaction 00 Center s Tolterod Propensi Active Rash 2017-[address] ine ty to 10-17 [facility] adverse 00:00: Medical reaction 00 [place] s Gabapent Propensi Active Shortness Of 2017-[address] in ty to Breath, Rash 10-17 Luke s adverse 00:00: Medical reaction 00 [place] s Iodine Propensi Active Rash 2017-[address] And ty to 10-17 [facility] Iodide adverse 00:00: Medical Containi reaction 00 [facility] s Products Latex Propensi Active Rash 2017-[address] ty to 10-17 [facility] adverse 00:00: Medical reaction 00 [place] s Morphine Propensi Active Anaphylaxis 2017-[address] ty to 10-17 [facility] adverse 00:00: Medical reaction 00 [place] s Penicill Propensi Active Anaphylaxis 2017-[address] ins ty to 10-17 [facility] adverse 00:00: Medical reaction 00 [place] s Quetiapi Propensi Active 2017-[address] ne ty to 10-17 [facility] adverse 00:00: Medical reaction 00 [place] s Sulfa Propensi Active Rash 2017-[address] (Sulfona ty to 10-17 [facility] mide adverse 00:00: Medical Antibiot reaction 00 [facility]) s Cefixime Propensi Active Rash [...] 00:00: 00 CLINDAMY Allergy Active Low Rash [facility] STEPHAN 10-17 00:00: 00 TOLTEROD Allergy Active Low Rash 2017- [facility] INE 10-17 00:00: 00 LATEX Allergy Active Low Rash 2017- [facility] 10-17 00:00: 00 SULFA Allergy Active Low Rash 2017- [facility] (SULFONA 10-17 MIDE 00:00: ANTIBIOT 00 ICS) COCONUT DRUG Active Hives 2017- Univers INGREDI 1-10 ity of 00:00: [place] 00 Medical Branch Coconut Propensi Active Rash 2017- Univers ty to 1-10 ity of adverse 00:00: [place] reaction 00 Medical s Branch Coconut Propensi Active Rash 2017- Methodi [...] l s reaction. DIPHENHY DRUG Active Hives 0 Univers DRAMINE INGREDI 4-12 ity of HCL 00:00: [place] 00 Medical Branch CLINDAMY DRUG Active Rash 2018-0 Univers STEPHAN INGREDI 4-12 ity of 00:00: [place] 00 Medical Branch GABAPENT DRUG Active Rash 2018-0 [...] Rash 2018-0 Method i stephan ty to 4-12 st [...] Products drug MORPHINE DRUG Active High Anaphylaxis 2016-09 Uni vers INGREDI 0-05 ity of 00:00: Medical Branch Morphine Propensi Active Anaphylaxis 2016-09 U nivers ty to 0-05 ity of adverse 00:00: [place] reaction Medical s Branch Morphine Propensi Active Anaphylaxis 2016-09 M ethodi ty to 0 st adverse 00:00: Hospita reaction 00 l s to drug TRAMADOL DRUG Active Unknown-Cmnt Un austyn INGREDI 06-22 ity of 00:00: Medical Branch Tramadol Propensi Active Unknown - Rash Uni vers ty to See comments 06-22 ity of adverse 00:00: [place] reaction Medical s Branch Tramadol Propensi Active Rash 2017 Rash Rash Met hodi ty to 06-22 st adverse 00:00: Hospita reaction 00 l s to drug QUETIAPI DRUG Active Rash 2016 Univers NE INGREDI 04-20 ity of FUMARATE 00:00: Medical Branch Quetiapi Propensi Active Rash 2016 Univer s ne ty to 04-20 ity of Fumarate adverse 00:00: [place] reaction 00 Medical s Branch Quetiapi Propensi Active Rash 2016 confusion Met hodi ne ty to 04-20 st adverse 00:00: Hospita reaction 00 l s to drug ALUMINUM DRUG Active High Anaphylaxis Uni vers ASPIRIN INGREDI 01-18 ity of 00:00: [place] Medical [facility] PENICILL DRUG Active High Anaphylaxis Uni vers IN INGREDI 01-18 ity of 00:00: Medical Branch Aluminum Propensi Active Anaphylaxis 2016- U nivers Aspirin ty to 01-18 ity of adverse 00:00: [place] reaction 00 Medical s Branch Penicill Propensi Active Anaphylaxis U nivers in ty to 01-18 ity of adverse 00:00: [place] reaction 00 Medical s Branch Ciproflo Propensi Active Other (See Muscle Me thodi xacin ty to Comments) 02-[address] adverse 00:00: le aches. Hospit a reaction 00 Muscle l s to aches drug ASPIRIN DRUG Active High Anaphylaxis Univ ers INGREDI 12-31 ity of 00:00: [place] 00 Medical Branch Aspirin Propensi Active Anaphylaxis Un austyn ty [...] Stop Date Quantity Comments Source History [facility] Alcohol Std Drinks Hospit al History [facility] Exposure to 2022-03-05 2022-03-15 Not sure University of SARS-CoV-2 (event) 00:00:00 08:08:00 [facility] Alcohol intake 2022-03-15 2022-03-15 Current University of 00:00:00 00:00:00 non-drinker of [facility] alcohol Branch (finding) Education 2021-03-25 2021-03-25 12 University of 00:00:00 00:00:00 [place] [facility] History SDNE 2019-10-29 2019-10-29 5 University o f Financial 00:00:00 00:00:00 [place] [facility] History [facility] Food 2019-10-29 2019-10-29 1 Univers ity of Worry 00:00:00 00:00:00 [place] [facility] History [facility] Food 2019-10-29 2019-10-29 1 Univers ity of Scarcity 00:00:00 00:00:00 [place] [facility] History [facility] 2019-10-29 2019-10-29 2 University o f Transport Med 00:00:00 00:00:00 [place] Medic al Branch History SDNE 2019-10-29 2019-10-29 2 University o f Transport Non-Med 00:00:00 00:00:00 [facility] edical Branch History [facility] 2018-09-05 2018-09-05 1 [place] Alcohol Frequency 00:00:00 00:00:00 Hospita l Cigarettes smoked 2018-04-27 2018-04-27 Univers ity of current (pack per 00:00:00 00:00:00 [facility] edical ) - Reported Branch Cigarette 2018-04-27 2018-04-27 University of pack-years 00:00:00 00:00:00 [facility] Tobacco use and 2018-04-27 2018-04-27 Never used Universit y of exposure 00:00:00 00:00:00 [facility] Tobacco Comment 2018-04-27 2018-04-27 quit 16 years Univer sity of 00:00:00 00:00:00 ago [facility] History of tobacco 2003-05-09 Smoker Univer sity of use 00:00:00 [facility] Sex Ass[birth year] At [birth year] Universit y of 00:00:00 00:00:00 [facility] Smoking Status Start Date Stop Date Source Former smoker 2018-04-27 00:00:00 2018-04[facility]27 [facility] Medications Ordered Filled Start Stop Current Ordering Indication Dosage Frequency Signature Comments Components Source Medication Medication Date Date Medication? Clinician (SIG) Name Name ondansetron 2021- No [id number] 8mg Univers (ZOFRAN) 03-15 ity of tablet 8 mg 15:15: 14:13 [place] 00 :25 Medical Branch ondansetron 2021- No [id number] 8mg Univers (ZOFRAN-ODT 03-15 ity of ) 15:15: 14:15 [place] disintegrat 00 :00 Medical ing tablet Branch 8 mg ondansetron 2021- No [id number] 8mg 8 mg, Univers (ZOFRAN-ODT 03-15 Oral, ity of ) 15:15: 14:15 ONCE, 1 [place] disintegrat 00 :00 dose, On Medi blane ing tablet Tue Branch 8 mg 03/15/22 at 1015, Routine ALPRAZolam Yes [id number] .25mg Take 0.25 Univers (XANAX) 6-21 mg by ity of 0.25 mg 08:21: mouth at [facility] 23 bedtime as Medical needed. Branch pregabalin Yes 50mg Take 50 mg U nivers (LYRICA) 50 6-21 by mouth ity of mg capsule 08:21: at [place] 23 bedtime. Medical Branch esomeprazol Yes 20mg Take 20 mg Univers e (NEXIUM) 6-21 by mouth 2 ity of 20 mg 08:21: (two) [place] capsule 23 times Medical daily Branch before breakfast and dinner. ubrogepant Yes [id number] 100mg Take 100 Univers (UBRELVY) 6-21 mg by ity of 100 mg Tab 00:00: mouth as [place] as 00 needed Medical (migraine) Branch . Take at onset of migraine, repeat x1 in 2h if headache remains ubrogepant 2021- No [id number] 100mg Take 100 Univers (UBRELVY) 6-21 06-21 mg by ity of 100 mg Tab 00:00: 00:00 mouth as [place] 00 :00 needed Medical (migraine) Branch . Take at onset of migraine, repeat x1 in 2h if headache remains acetaminoph Yes [id number] 1{tbl} Take 1 Un austyn en-codeine 6-17 tablet by ity of (TYLENOL-CO 00:00: mouth [place] DEINE #3) 00 every 4 Medical 300-30 mg (four) Branch tablet hours as needed for Pain (scale 7-10). Indication s: acute pain fluticasone Yes [id number] 1{puff} Inhale 1 Univers furoate-natan 6-03 Puff ity of anteroL 00:00: daily. [place] (BREO 00 Medical ELLIPTA) Branch 200-25 mcg/dose DsDv tiotropium Yes [id number] 1{puff} Inhale 1 Univers bromide 6-03 Puff ity of (SPIRIVA 00:00: daily. [place] RESPIMAT) 00 Medical 2.5 Branch mcg/actuati on Mist levETIRAcet Yes [id number] 750mg Take 1 Univers am 750 mg [...] by ity of tablet 00:00: mouth at [place] 00 bedtime as Medical needed for Branch Insomnia. roflumilast Yes [id number] 250ug Take 250 Univers (DALIRESP) 6-03 mcg by ity of 250 mcg Tab 00:00: mouth [place] 00 daily. Medical Branch azithromyci 2021- No [id number] 250mg Take 1 Univers n 250 mg 6-03 06-21 tablet by ity o f tablet 00:00: 00:00 mouth [place] 00 :00 daily. Medical Branch carvediloL Yes [id number] 25mg Take 1 U nivers 25 mg 6-01 tablet by ity of tablet 00:00: mouth 2 [place] 00 (two) Medical times Branch daily with meals. BENZONATATE Yes [id number] TAKE 1 Univers 100 mg 3-04 CAPSULE BY ity of capsule 00:00: MOUTH [place] 00 THREE Medical TIMES Branch DAILY NEEDED FOR COUGH digoxin 2020-09 Yes 125ug Take 1 Univers [...] mouth [place] 00 daily. Medical Branch albuterol 2020-09- No [id number] 1.25mg Inhale 1.5 Univers 2.5 mg /3 -11 06-21 mL every 4 ity of mL (0.083 00:00: 00:00 (four) [place] %) 00 :00 hours. Medical nebulizer Branch solution albuterol 2020-09 Yes [id number] 2{puff} Inhale 2 Univers 90 1-05 Puffs ity of mcg/actuati 00:00: every 6 Bas[place] as on inhaler 00 (six) Medical hours as Branch needed for Wheezing or Shortness of Breath. ubrogepant 2020-09 No [id number] 100mg Take 100 Univers (UBRELVY) 0-19 06-21 mg by ity of 100 mg Tab 00:00: 00:00 mouth as [place] 00 :00 needed Medical (migraine) Branch . Take at onset of migraine, repeat x1 in 2h if headache remains nitroglycer 2020-[id number] 1 Univers in 0.4 mg 0-10 tablet ity of sublingual 00:00: under the [place] tablet 00 tongue Medical every 5 Branch (five) minutes as needed for Chest pain. albuterol Yes [id number] 2.5mg Inhale 3 Univers 2.5 mg /3 [...] a l mcg/actuati day. on inhaler benztropine 0 Yes 1mg Q.5D Take 1 mg M ethodi (COGENTIN) 6-[address] 1 MG tablet 22:52: (two) Hospi ta 44 times a l day. busPIRone 0 Yes 15mg Q.5D Take 15 mg Me thodi (BUSPAR) 10 6-[address] MG tablet 22:52: (two) Hospita 44 times a l day. digOXIN 2020-0 Yes 125ug QD Take 125 Metho di [...] 24 44 daily. l hr capsule apixaban 2020-0 Yes 5mg Q.5D Take 5 mg Meth jamie (ELIQUIS) 5 6-[address] mg tablet 22:52: (two) Hospita 44 times a l day. famotidine 2020-0 Yes 20mg QD Take 20 mg M ethodi (PEPCID) 20 6-[address] MG tablet 22:52: nightly. [facility] 44 l levETIRAcet 2020-0 Yes 1000mg Q.5D Take 1,000 Methodi am (KEPPRA) 6-[address] 1000 MG 22:52: mouth 2 Hospita tablet 44 (two) l times a day. pregabalin 2020-0 Yes 50mg QD Take 50 mg M [...] day. l ophthalmic emulsion albuterol Yes 1{ampul Q.[id number] Take 1 Methodi (ACCUNEB) 6-24 e} [id number] ampule by st 1.25 mg/3 22:52: 3D nebulizati Ho spita mL 44 on 3 l nebulizer (three) solution times a day. esomeprazol 2020- No 20mg QD Take 20 mg Methodi e (NexIUM) -18 03- by mouth st 20 MG 20:19: [...] Take 1 Meth jamie (ADVIL) 600 03-18 06-[address] MG tablet 00:00: 04:59 (600 mg [facility] 00 :00 total) by l mouth every 8 (eight) hours for 5 days. methylPREDN 2020- No follow Met hodi ISolone 03-18 06-[address] (Medrol, 00:00: 04:59 directions Chacho Gandara) 4 mg 00 :00 l tablet promethazin [...] MG 14:04: mouth Medical tablet 46 daily. [place] venlafaxine Yes 150mg QD Take [address] (EFFEXOR-XR 5-21 mg by [facility] ) 150 MG 24 14:04: mouth Medic al hr capsule 46 daily. [place] apixaban Yes 5mg QD Take [address] (ELIQUIS) 5 5-21 by mouth Luke s mg Tab 14:04: daily. Medical tablet 46 [place] levETIRAcet Yes 1000mg Q.5D Take 1,[address] am (KEPPRA) 5-21 mg by [facility] 1000 MG 14:04: mouth 2 Medical tablet 46 (two) Center times daily. loratadine Yes 10mg QD Take [address] (CLARITIN) 5-21 by mouth [facility] 10 mg 14:04: daily. Medical tablet 46 [place] pregabalin Yes 50mg QD Take [address] (LYRICA) 25 5-21 by mouth Luke s MG capsule 14:04: nightly . Mn dical 46 [place] esomeprazol Yes 40mg QD Take [address] e (NEXIUM) 5-21 by mouth [facility] 40 MG 14:04: daily. Medical capsule 46 [place] albuterol Yes 2{puff} Inhale [address] HFA 5-21 puffs by [facility] (VENTOLIN 14:04: mouth via Med ical HFA) 90 46 inhaler as Center mcg/actuati needed for on inhaler Wheezing or Shortness of Breath . simvastatin Yes hyperlipide 5mg QD Take [address] (ZOCOR) 5 5-21 louise by mouth [facility] MG tablet 14:04: nightly. [facility] blane 46 [place] carvediloL Yes 25mg Take [address] (COREG) 25 5-21 by mouth 2 Berta es MG tablet 14:04: (two) Medical 46 times Center daily with breakfast and dinner. cariprazine Yes 1.5mg QD Take 1.[address] (Vraylar) 5-21 mg by [facility] 1.5 mg Cap 14:04: mouth Medica l 46 nightly. [place] albuterol 2020- No 1{ampul Q.5D Take [address] (ACCUNEB) - 05-21 e} ampule by Alberto samuel 1.25 mg/3 11:39: 00:00 nebulizati M edical mL 17 :00 on 2 (two) Center nebulizer times solution daily . fluticasone 2020- No 1{puff} QD Inhale [address] -vilanterol -21 05-21 puff by Alberto samuel (BREO 11:39: 00:00 mouth via Medica l ELLIPTA) 17 :00 inhaler Center 100-25 daily. mcg/dose DsDv tiotropium 2020-2020- No 18ug QD Inhale [address] (SPIRIVA) 5-21 05-21 mcg by Coni 18 mcg 11:39: 00:00 mouth via Medic al inhalation 17 :00 inhaler Center capsule daily. triamcinolo 2020-2020- No 2{spray QD [address] ne 5-19 05-19 } by Nasal Coni (NASACORT) 22:23: 00:00 route Medic al 55 mcg 54 :00 daily. Center nasal inhaler topiramate 2020-2020- No 200mg Q.5D Take [address] (TOPAMAX) 5-19 05-19 mg by Coni 100 MG 22:23: 00:00 mouth 2 Medical tablet 21 :00 (two) Center times daily. ROFLUMILAST 2020-2020- No COPD 500ug QD Take [address] ORAL 5-19 05-19 Associated mcg by Coni 22:22: 00:00 with mouth Medical 54 :00 Chronic daily. Center Bronchitis ranolazine 2020-2020- No 500mg Q.5D Take [address] (RANEXA) 5-19 05-19 mg by [facility] 500 MG 12 22:22: 00:00 mouth 2 Medi blane hr tablet 12 :00 (two) Center times daily. levothyroxi 2020- No 125ug Take [address] ne 5-19 05-19 mcg by Lualberto (SYNTHROID, 22:20: 00:00 mouth Medi blane LEVOTHROID) 38 :00 Every Center 125 MCG morning on tablet an empty stomach. benztropine 2020- No 2mg Take [address] [facility] (COGENTIN) 02-10- by mouth 3 Jeanie kes 2 MG tablet 22:18: 00:00 (three) Me dical 40 :00 times Center daily as needed. benztropine 2020- No 1mg Take [address] [facility] (COGENTIN) 02-10- by mouth Luke s 1 MG tablet 22:18: 00:00 daily as edical 31 :00 needed. [place] ARIPiprazol No 5mg QD Take [address] [facility] (ABILIFY) 02-10- by mouth Berta es 5 MG tablet 22:18: 00:00 nightly. edical 03 :00 [place] ARIPiprazol No 10mg QD Take [address] [facility] (ABILIFY) 02-10- by mouth Berta es 10 MG 22:17: 00:00 daily. Medical disintegrat 48 :00 Center ing tablet blood sugar 2017-09 Yes [id number] Use as Univers diagnostic 0-24 directed. ity of (TRUETEST 00:00: R [place]. [place] TEST 00 Check once Medical STRIPS) daily [place] strip lancets 2017-09 Yes [id number] Use as Uni vers (TRUEPLUS 0-24 directed. ity o f LANCETS) 33 00:00: [place].03, [place] gauge Misc 00 Check once Med ical daily Branch busPIRone Yes TK 1 T PO Uni vers 15 mg 9-22 BID ity of tablet 00:00: [address] Immunizations Ordered Filled Immunization Date Status Comments Sourc e Immunization Name Name SARS-COV-2 COVID-19 2021-02-08 Completed Unive rsity of MODERNA VACCINE 00:00:00 [facility] SARS-COV-2 COVID-19 2021-01-11 Completed Unive rsity of MODERNA VACCINE 00:00:00 [facility] Influenza Virus 2020-08-13 Completed Universit y of Vaccine 00:00:00 [facility] Pneumococcal 2017-06-23 Completed University o f Polysaccharide, 00:00:00 [facility] PPSV23 (PNEUMOVAX) Branch Influenza High Dose 2015-11-16 Completed Unive rsity of 00:00:00 [facility] Pneumococcal 2015-11-16 Completed University o f Polysaccharide, 00:00:00 [place] Med ical PPSV23 (PNEUMOVAX) [place] Vital Signs Vital Name Observation Time Observation Value Comments Source HEIGHT 2021-02-10 21:00:00 149.9 cm WEIGHT 2021-02-10 21:00:00 59.467 kg Systolic blood 2022-03-15 13:28:00 116 mm[Hg] Univer sity of pressure [facility] Diastolic blood 2022-03-15 13:28:00 84 mm[Hg] Unive rsity of pressure [facility] Heart rate 2022-03-15 13:28:00 97 /min [facility] Body temperature 2022-03-15 13:28:00 36.61 Ayaka Univ ersity of [facility] Body height 2022-03-15 13:28:00 149.9 cm [facility] Body weight 2022-03-15 13:28:00 [facility] BMI 2022-03-15 13:28:00 25.27 kg/m2 [facility] Oxygen saturation in 2022-03-15 13:28:00 98 /min [facility] Arterial blood by [facility] Pulse oximetry Branch [facility] 2021-02-10 21:00:00 149.9 cm WEIGHT 2021-02-10 21:00:00 59.467 kg Oxygen saturation in 2021-03-18 20:00:00 97 /min [facility] Arterial blood by Pulse oximetry Systolic blood 2021-03-18 17:24:48 132 mm[Hg] [facility] pressure Diastolic blood 2021-03-18 17:24:48 72 mm[Hg] [facility] pressure Heart rate 2021-03-18 17:24:48 96 /min [facility] Body temperature 2021-03-18 17:24:48 37 Ayaka [facility] Respiratory rate 2021-03-18 17:24:48 14 /min [facility] Body height 2021-03-18 01:37:00 149.9 cm [facility] Body weight 2021-03-18 00:09:00 58.968 kg [facility] BMI 2021-03-18 00:09:00 26.26 kg/m2 [facility] Systolic blood 2021-02-12 12:00:00 101 mm[Hg] [facility] Diastolic blood 2021-02-12 12:00:00 72 mm[Hg] [facility] Heart rate 2021-02-12 12:00:00 93 /min [facility] Respiratory rate 2021-02-12 12:00:00 18 /min [facility] Oxygen saturation in 2021-02-12 12:00:00 96 /min [facility] Arterial blood by Medical Ce nter Pulse oximetry Body temperature 2021-02-12 11:00:00 37.56 Ayaka [facility] Body height 2021-02-11 10:15:00 149.9 cm [facility] Body weight 2021-02-11 10:15:00 59.5 kg [facility] BMI 2021-02-11 10:15:00 26.48 kg/m2 [facility] Procedures Procedure Date / Time Performing Clinician Source Performed POC GLUCOSE 2021-03-18 17:31:00 Cliff Berkowitz [facility] spital ECG 12-LEAD 2021-03-18 17:28:01 [facility] TROPONIN 2021-03-18 16:41:00 [facility] TTE COMPLETE, WO 2021-03-18 14:19:12 [facility] CONTRAST, W DOPPLER ([id number]) POC GLUCOSE 2021-03-18 13:14:00 [facility] HC COMPLETE BLD COUNT 2021-03-18 10:00:00 [facility] W/AUTO DIFF COMPREHENSIVE METABOLIC 2021-03-18 10:00:00 [facility] PANEL MAGNESIUM LEVEL 2021-03-18 10:00:00 [facility] PHOSPHORUS LEVEL 2021-03-18 10:00:00 [facility] LIPID PANEL 2021-03-18 10:00:00 [facility] HEMOGLOBIN A1C 2021-03-18 10:00:00 [facility] ESTIMATED GFR 2021-03-18 10:00:00 [facility] URINE CULTURE 2021-03-18 06:12:00 [facility] LEGIONELLA URINARY 2021-03-18 05:36:00 [facility] ANTIGEN STREPTOCOCCUS PNEUMONIAE 2021-03-18 05:36:00 [facility], [facility] URINARY ANTIGEN URINALYSIS SCREEN AND 2021-03-18 05:36:00 Lae, [facility] MICROSCOPY, WITH REFLEX TO CULTURE BLOOD CULTURE, AEROBIC & 2021-03-18 04:35:00 Lae, [facility] ANAEROBIC BLOOD CULTURE, AEROBIC & 2021-03-18 04:25:00 [facility] ANAEROBIC DIGOXIN LEVEL 2021-03-18 04:24:00 [facility] TROPONIN 2021-03-18 04:24:00 [facility] LACTIC ACID LEVEL, SEPSIS 2021-03-18 04:24:00 [facility] - NOW AND REPEAT 2X EVERY 3 HOURS POC GLUCOSE 2021-03-18 01:38:00 [facility] ARTERIAL BLOOD GAS 2021-03-18 01:10:00 [facility] US DUPLEX VENOUS LOWER 2021-03-18 01:00:06 [facility] EXTREMITY BILATERAL LACTIC ACID LEVEL, SEPSIS 2021-03-17 23:47:00 Lae, [facility] - NOW AND REPEAT 2X EVERY 3 HOURS TROPONIN 2021-03-17 23:47:00 [facility] XR CHEST 1 VW PORTABLE 2021-03-17 21:20:18 Hector Alvarez [facility] HC COMPLETE BLD COUNT 2021-03-17 21:05:00 [facility]O DIFF LACTIC ACID LEVEL, SEPSIS 2021-03-17 21:05:00 [facility] - NOW AND REPEAT 2X EVERY 3 HOURS COMPREHENSIVE METABOLIC 2021-03-17 21:05:00 [facility]cho[facility] PANEL TROPONIN 2021-03-17 21:05:00 [facility] B NATRIURETIC PEPTIDE 2021-03-17 21:05:00 [facility] D-DIMER 2021-03-17 21:05:00 [facility] ESTIMATED GFR 2021-03-17 21:05:00 [facility] ECG ED PRELIMINARY 2021-03-17 20:36:46 [facility] INTERPRETATION ECG 12-LEAD 2021-03-17 20:19:38 [facility] BASIC METABOLIC PANEL (7) 2021-02-12 05:34:00 Johan [facility] MAGNESIUM 2021-02-12 05:34:00 Johan [facility] PHOSPHORUS 2021-02-12 05:34:00 [facility] CBC W/PLT COUNT & AUTO 2021-02-12 04:48:00 Alison Prado [facility] MR BRAIN WITHOUT IV 2021-02-11 16:08:00 Naina [facility] MRA HEAD WITHOUT IV 2021-02-11 16:07:00 Naina [facility] MRA NECK WITHOUT IV 2021-02-11 16:07:00 Naina [facility] RAPID DRUG SCREEN, URINE 2021-02-11 03:05:00 Johan [facility] URINALYSIS WITH 2021-02-11 03:05:00 Johan [facility] MICROSCOPIC IF INDICATED [facility] URINALYSIS MICROSCOPIC 2021-02-11 03:05:00 Alison Prado [facility] HOMOCYSTEINE 2021-02-11 02:46:00 [facility] RPR 2021-02-11 02:46:00 [facility] TSH/FREE T4 IF INDICATED 2021-02-11 02:46:00 [facility] VITAMIN B12 AND FOLATE 2021-02-11 02:46:00 [facility] CBC W/PLT COUNT & AUTO 2021-02-11 02:46:00 Johan [facility] BASIC METABOLIC PANEL (7) 2021-02-11 02:46:00 [facility] MAGNESIUM 2021-02-11 02:46:00 [facility] PHOSPHORUS 2021-02-11 02:46:00 [facility] C-REACTIVE PROTEIN 2021-02-11 02:46:00 [facility] DIGOXIN LEVEL 2021-02-11 02:46:00 [facility] XR CHEST 1 VIEW PORTABLE 2021-02-10 22:20:00 [facility] / BEDSIDE [facility] POCT-GLUCOSE METER 2021-02-10 21:28:00 Wilmer Vera [facility] LIPID PANEL 2021-02-10 21:22:00 [facility] CREATINE KINASE (CK) 2021-02-10 21:21:00 [facility] HEMOGLOBIN A1C 2021-02-10 21:21:00 [facility] CBC W/PLT COUNT & AUTO 2021-02-10 21:21:00 [facility] COMPREHENSIVE METABOLIC 2021-02-10 21:21:00 [place] [facility] PROTHROMBIN TIME/INR 2021-02-10 21:21:00 [facility] APTT 2021-02-10 21:21:00 [facility] MAGNESIUM 2021-02-10 21:21:00 [place] [facility] PHOSPHORUS 2021-02-10 21:21:00 [facility] HIGH SENSITIVITY TROPONIN 2021-02-10 21:21:00 [facility] I [facility] B-TYPE NATRIURETIC FACTOR 2021-02-10 21:21:00 [facility] (BNP) [facility] LACTIC ACID, VENOUS 2021-02-10 21:21:00 [facility] ARRYTHMIA IMPLANT REPORT 2021-02-10 00:00:00 Provider, Default C HI [facility] - SCAN Scanning [facility] Plan of Care Planned Activity Planned Date Details Comments Source Future Scheduled 2021-05-[address] [facility] Test 00:00:00 (#1) [code = [facility] INFLUENZA VACCINE (#1)] Future Scheduled 2020-09-[address] [facility] Test 00:00:00 (12+) [code = [facility] DEPRESSION SCREENING (12+)] Future Scheduled [address] [facility] Test 00:00:00 malignant neoplasm Medical C enter of cervix (procedure) [code = 601299056] Future Scheduled 2000 DTAP/TDAP/TD [facility] Test 00[facility]:00 VACCINES (1 - Tdap) [facility] [code = DTAP/TDAP/TD VACCINES (1 - Tdap)] Future Scheduled [address] [facility] Test 00:00:00 SCREENING [code = Medical nter HEPATITIS C SCREENING] Future Scheduled Screening for [facility] Test malignant neoplasm of cervix (procedure) [code = 652100819] Future Scheduled [facility] [code = INFLUENZA VACCINE] Encounters Start End Encounter Admission Attending Care Care Encounter Source Date/Time Date/Time Type Type Clinicians Facility Department ID 2021-02-10 Inpatient ER BERSHAD, [facility] Neurology [id number] [facility] 20:21:00 WILMER 2020-09-29 Inpatient Mely, [facility] ENDO [id number] [facility] 10:15:[address] [facility] 2020-09-28 Inpatient EL Mely, [facility] ENDO [id number] [facility] 12:00:[address] [facility] 2022-03-15 2022-03-15 Office Chiquis Sim [facility] 1.2.840. 114 [id number] Univers 08:30:00 09:16:22 Visit Nurys Dukes [facility] [id number] [facility] 4.2.7.2.686 Demetrio SANTILLAN [id number] [place] [address] Branch OFFICE BUILDING 2022-03-10 2022-03-11 Emergency X FILEMON [facility] ERT [id number] Univers 22:48:00 00:50:00 SAMMY ity [facility] 2021-05-12 2021-05-12 Orders Doctor NUNO 1.2.840.114 [id number] 00:00:00 00:00:00 Only Unassigned, PINKY 350.1.13.10 [facility] 4.2.7.2.686 [id number] 2021-04-29 2021-04-29 Office Malena [facility] 1.2.840.114 [id number] 12:33:16 13:56:43 Visit Deloresfransisco Malcom 350.1.13.10 [place] 4.2.7.2.686 Profleonard [id number] [place] [address] Building 2021-04-28 2021-04-28 Orders DANITA Guy 1.2.208.231 [id number] 00:00:00 00:00:00 Only Critical access hospital 350.1.13.10 [facility] 4.2.7.2.686 [id number] 2021-03-19 2021-03-19 Patient Omari, 1.2.840.1 [id number] Methodi 00:00:00 00:00:00 Outreach Ann [address]12.1.[address] 3.430.2.7 Hospit a .3.146986 l .8 2021-03-17 2021-03-18 Emergency Hector Alvarez 1.2.840.1 [id number] Methodi 14:59:00 17:52:00 Veda Bolanos 72248.1.[address] Cliff Berkowitz 3.430.2.7 Hospita .3.426801 l .8 2021-03-17 2021-03-17 Travel 1.2.840.1 1.2.736.922 [id number] Methodi 00:00:00 00:00:[address] 3.430.2.7 0.2.7.3.698 Ho spita .3.254486 084.8 l .8 2017-09-06 2017-09-08 [id number] [facility] 10:12:00 02:32:00 [facility] Results Test Description Test Time Test Comments Results Result Comments Source ECG 12 lead 2021-03-19 14:56:41 Test Item Value Reference Range Interpretation Comme nts Ventricular rate (test code = 253) Atrial rate (test code = 255) OK interval (test code = 266) QRSD interval [...] of 17-MAR-2021 15:19,-No significant change was found- [facility] [id number] 12:41:23 Test Item Value Reference Range Interpretation Comments Urine culture isolate Mixed alok <=10-3 (test code = 15057-2) col/cc [facility] Complete, (w Contrast, Strain and 3D if needed)2021-03-18 23:04:52 Test Item Value Reference Range Interpretation Comments Ao Root Diameter (test code = 2.73 cm 5998113112) AoV Area, Vmax (test code = 2.24 cm2 6514414426) AoV Area, VTI (test code = 2.25 cm2 6899707457) AoV Mean PG (test code = mmHg 0293550799) AoV Peak PG (test code = mmHg 4102042833) AoV Vmax (test code = 7539829368) 1.46 m/s AoV VTI (test code = 9603677846) 0.28 m IVS,d (test code = 9074823099) 0.72 cm IVS/LVPW,2D (test code = 1001032466) Left Atrium Dimension Anterior 2.68 cm (test code = 5129023198) LV,d (test code = 7019863700) 3.69 cm LV EF,2D (test code = 8094758270) 79.68 % LV,s (test code = 4488728758) 2.17 cm LVOT area (test code = 2959949982) 2.75 cm2 LVOT Diam,S (test code = 1.87 cm 0460688221) LVOT Vmax (test code = 3243626339) 1.18 m/s LVOT VTI (test code = 9087465574) 0.23 m LVPWD,d (test code = 5674285118) 0.65 cm PV Pk Grad (test code = 5244519567) mmHg PV VMAX (test code = 8950116954) 0.84 m/s RVOT Vmax (test code = 7148681216) 0.85 m/s RVSP (TR) (test code = 8857162129) mmHg TR Vpeak (test code = 3087298319) 2.86 mm/s MV E A ratio (test code = 7391958445) RA pressure (test code = mmHg 0746065452) TR pk grad (test code = 8834771291) mmHg MR Vmax (test code = 5681760761) 5.49 m/s E wave decelartion time (test code msec = 7801276104) MV Peak A Alf (test code = 0.76 m/s 0143030948) MV valve area p 1/2 method (test 3.26 cm2 code = 0191510818) MV Peak E Alf (test code = 0.92 m/s 6809952150) MV stenosis pressure 1/2 time (test 67.54 ms code = 2683269047) LVOT stroke volume (test code = 0.63 cm3 4560452739) AV LVOT peak gradient (test code = mmHg 2679796723) RVSP (test code = 6947475165) mmHg Ao Root Diameter (test code = 2.73 cm 4412890159) MV mean gradient (test code = mmHg 4552709309) LV SYS VOL (test code = 9948996788) 15.61 ml LV MARTINS VOL (test code = 57.63 ml 7113154151) LA area s A4C (test code = 11.16 cm2 2653019400) LV SV Teich 2D (test code = 42.02 ml 0094196490) LV Vol s Teich PSAX (test code = 15.61 ml 3474806433) MR peak grad (test code = mmHg 3225083489) MV Vmax (test code = 9141859131) 1.21 m MV VTI Tips (test code = 0.24 m 9869213660) RVOT pk grad (test code = mmHg 2447432951) AoV Vmn (test code = 4447877275) LV FS Teich 2D (test code = 4019401146) MV AE ratio (test code = 3540249689) LV FS Cube 2D (test code = 8456221889) LVOT Vmn (test code = 9622292941) Aov area Vmn (test code = 2.13 cm2 1466865835) LVOT mean grad (test code = mmHg 4643188142) MAX Pred HR (test code = 2471407306) 85 of MPHR (test code = 1935916235) Calc MPHR (test code = 5478605131) bpm LV SV Cube 2D (test code = 39.93 ml 3015367608) LV vol d cube 2D (test code = 50.11 ml 4152877403) LV vol s cube 2D (test code = 10.18 ml 7627936441) MV Decel slope (test code = 3.97 m/s2 6014679993) Pred Exer Dur R1 (test code = 6176152496) Pred METS R1 (test code = 1068182145) LA Vol MOD A4C (test code = 24.20 ml 8166539601) Velocity Ratio (V1/V2) (test code = 0.81 m/s 4689) EF (test code = 5086053227) 72.91 % E/A ratio (test code = 7504786896) LVOT VTI (CM) (test code = 23.00 cm 2474927573) SOMMER (test code = SOMMER) [facility] [id number] 17:32:37 Test Item Value Reference Range Interpretation Comments POC glucose (test code = 04360-5) 207 mg/dL 65-99 H Lab Interpretation (test code = Abnormal 25013-1) [facility] duplex venous lower [id number] 01:17:37 EXAMINATION: US DUPLEX VENOUS LOWER EXTREMITY [...] evidence of deep venous thrombosis. [facility]-[id number] Interface, Radiology Results 03/17/2021 8:20 PM CDT [...] no evidence of deep venous thrombosis.[facility]-[id number] HospitalXR Chest 1 Vw [id number] 21:32:52EXAMINATION: XR CHEST 1 PORTABLE CLINICAL HISTORY: 40 years Female SOB COMPARISON: None. IMPRESSION: Lines, tubes, and devices: Right-sided transvenous cardiac pacemaker. Heart and mediastinum: Cardiomediastinal silhouette is normal. Lungs and pleura: There is no focal airspace disease, pleuraleffusion or pneumothorax. Bones/soft tissues: No acute osseous abnormality. [facility]-[id number] Dictatedand approved by chief radiology/fellow: Cristhian Calixto M.D. I, Jan Scott MD, personally reviewed the images and resident's/fellow's findings and agree with the final report.[facility], [facility] iology Results Incoming - 03/17/2021 4:35 PM CDTFormatting of this note might be different from theoriginal.EXAMINATION: XR CHEST 1 VW PORTABLECLINICAL HISTORY: 40 years Female SOBCOMPARISON: None.IMPRESSION:Lines, tubes, and devices: Right-sided transvenous cardiac pacemaker.Heart and mediastinum: Cardiomediastinal silhouette is normal.Lungs and pleura: There is no focal airspace disease, pleural effusion or pneumothorax.Bones/soft tissues: No acute osseous abnormality.[facility]-[id number] and approved by chief radiology/fellow: Aleksandra Sanchez, Jan Scott MD, personally rev iewed the images and resident's/fellow's findings and agree with the final report.[facility] Hospital[facility]YTHMIA IMPLANT REPORT - [id number] 20:45:31 Ordered by an unspecified provider.[facility] ED Preliminary Interpretation - Not an [id number] 20:36:46 Test Item Value Reference Range Interpretation Comments SOMMER (test code = SOMMER) Lab Interpretation (test code = Abnormal 13337-0) [facility] Metabolic [id number] 07:01:00 Test Item Value Reference Range Interpretation Comments Sodium (test code = 137 meq/L 484-590 6861-2) Potassium (test code = 4.3 meq/L 3.5-5.1 2823-3) Chloride (test code = 104 meq/L 98-107 2075-0) CO2 (test code = 24 meq/L 22-29 2027-9) BUN (test code = 15 mg/dL 7- 3094-0) Creatinine (test code 0.81 mg/dL 0.57-1.25 = 2160-0) Glucose (test code = 108 mg/dL 70-105 H 2345-7) Calcium (test code = 9.2 mg/dL 8.4-10.2 58357-2) EGFR (test code = 79 mL/min/1.73 [place] [address]-5) NOT ACCURATE CREATININE CLEARANCE IN PREDICTING GLOMERULAR FILTRATION RATE . ESTIMATED GFR I S NOT APPLICABLE FOR DIALYSIS PATIENTS. SOMMER (test code = SOMMER) [employer] ID - PIAYA L Lab Interpretation Abnormal (test code = 82549-1) [facility] 07:01[facility]00 Test Item Value Reference Range Interpretation Comments Magnesium (test code = 2.5 mg/dL 1.6-2.6 60059-8) SOMMER (test code = SOMMER) [employer] ID - PIAYA L Lab Interpretation (test Normal code = 35743-7) [facility] 07:01:00 Test Item Value Reference Range Interpretation Comments Phosphorus (test code = 4.3 mg/dL 2.3-4.7 2777-1) SOMMER (test code = SOMMER) [employer] ID - PIAYA L Lab Interpretation (test Normal code = 67661-6) [facility] METABOLIC [id number] 07:01:00 Test Item Value Reference Range Interpretation [...] S NOT APPLICABLE FOR DIALYSIS PATIEN TS. [employer] ID - PIAYA [id number] 07:01:00 Test Item Value Reference Range Interpretation Comments MAGNESIUM (BEAKER) (test code = 2.5 mg/dL 1.6-2.6 627) [employer] ID - MACHELLE [id number] 07:01:00 Test Item Value Reference Range Interpretation Comments PHOSPHORUS (BEAKER) (test code = 4.3 mg/dL 2.3-4.7 604) [employer] ID - MACHELLE LCBC with platelet count + automated [id number] 05:37:00 Test Item Value Reference Range Interpretation Comments WBC (test code = 6690-2) 6.8 See_Comment [A utomated message] The system [employer] generated this result transmitted ref erence range: 3.5 - 10 .5 K/L. The refe rence range was not u sed to interpret this result as normal/abnor mal. RBC (test code = 789-8) 5.14 See_Comment [Au tomated message] The system [employer] generated this result transmitted ref erence range: 3.93 - 5 .22 M/L. The refe rence range was not u sed to interpret this result as normal/abnor mal. MCHC (test code = 786-4) 31.6 See_Comment L [A utomated message] The system [employer] generated this result transmitted ref erence range: [...] See_Comment [Aut omated message] 777-3) The system [employer] generated this result transmitted ref erence range: 150 - 45 0 K/CU MM. The referen ce range was not u sed to interpret this result as normal/abnor mal. MPV (test code = 10.0 fL 9.4-12.3 04654-8) nRBC (test code = 413) 0 See_Comment [Aut omated message] The system [employer] generated this result transmitted ref erence range: [...] See_Comment [Aut omated message] 670) The system [employer] generated this result transmitted ref erence range: 1.56 - 6 .13 K/L. The refe rence range was not u sed to interpret this result as normal/abnor mal. # Lymphs (test code = 2.10 See_Comment [Auto mated message] 414) The system [employer] generated this result transmitted ref erence range: 1.18 - 3 .74 K/L. The refe rence range was not u sed to interpret this result as normal/abnor mal. # Monos (test code = 0.48 See_Comment H [Autom ated message] 415) The system [employer] generated this result transmitted ref erence range: 0.24 - 0 .36 K/L. The refe rence range was not u sed to interpret this result as normal/abnor mal. # Eos (test code = 416) 0.26 See_Comment [Au tomated message] The system [employer] generated this result transmitted ref erence range: 0.04 - 0 .36 K/L. The refe rence range was not u sed to interpret this result as normal/abnor mal. # Baso (test code = 417) 0.04 See_Comment [A utomated message] The system [employer] generated this result transmitted ref erence range: 0.01 - 0 .08 K/L. The refe rence range was not u sed to interpret this result as normal/abnor mal. Immature 1 % 0-1 Granulocytes-Relative (test code = 2801) Lab Interpretation (test Abnormal code = 76187-7) [facility] W/PLT COUNT & AUTO [id number] 05:37:00 Test Item Value Reference Range Interpretation [...] code = 2801) MR, MRA, BRAIN, WITHOUT [id number] 16:54:00Reason for exam:->Ischemic Stroke EvaluationCH[facility] : 1980 Sex: FFINAL REPORT MR, BRAIN, WITHOUT CONTRAST, MR, MRA, BRAIN, WITHOUT CONTRAST, MR, MRA, NECK, WITHOUT IV CONTRAST INDICATION: Stroke, follow upIschemic Stroke Evaluation TECHNIQUE: Multiplanar, multisequence MR imaging of the brain without intravenous contrast.MRA of the head utilizing 3-D lxmx-ov-iokgyz technique, with 3-D reconstructions.MRA of the neck utilizing 2-D and 3-D lhxk-hy-gaitqk technique, with 3-D reconstructions. COMPARISON: MRI and [...] 02/11/2021 16:54:16 MR, MRA, NECK, WITHOUT IV [id number] 16:54:00Reason for exam:->Ischemic Stroke Evaluation [facility] : 1980 Sex: FFINAL REPORT MR, BRAIN, WITHOUT CONTRAST, MR, MRA, BRAIN, WITHOUT CONTRAST, MR, MRA, NECK, WITHOUT IV CONTRAST INDICATION: Stroke, follow upIschemic Stroke Evaluation TECHNIQUE: Multiplanar, multisequence MR imaging of the brain without intravenous contrast.MRA of the head utilizing 3-D rqti-nl-raexlt technique, with 3-D reconstructions.MRA of the neck utilizing 2-D and 3-D cslm-xu-xhaawe technique, with 3-D reconstructions. COMPARISON: MRI and [...] Verified Date/Time: 02/11/2021 16:54:16 MR, BRAIN, WITHOUT [id number] 16:54:00Reason for exam:->Ischemic Stroke Evaluation [facility] : 1980 Sex: FFINAL REPORT MR, BRAIN, WITHOUT CONTRAST, MR, MRA, BRAIN, WITHOUT CONTRAST, MR, MRA, NECK, WITHOUT IV CONTRAST INDICATION: Stroke, follow upIschemic Stroke Evaluation TECHNIQUE: Multiplanar, multisequence MR imaging of the brain without intravenous contrast.MRA of the head utilizing 3-D rzkz-zi-cqkfqs technique, with 3-D reconstructions.MRA of the neck utilizing 2-D and 3-D rywt-kj-cxhoei technique, with 3-D reconstructions. COMPARISON: MRI and [...] Date/Time: 02/11/2021 16:54:16 MR brain without IV [id number] 16:54:00Interface, External Ris In - 02/11/2021 4:56 PM CDTFINAL REPORT MR, BRAIN, WITHOUT CONTRAST, MR, MRA, BRAIN, WITHOUT CONTRAST, MR, MRA, NECK, WITHOUT IV CONTRAST INDICATION: Stroke, follow upIschemic Stroke Evaluation TECHNIQUE: Multiplanar, multisequence MR imaging of the brain without intravenous contrast.MRA of the head utilizing 3-D kzvq-dl-scguld technique, with 3-D reconstructions.MRA of the neck utilizing 2-D and 3-D otak-xc-rrpkul technique, with 3-D reconstructions. COMPARISON: MRI and [...] Lakshmi Amador MDReport Verified Date/Time: 02/11/2021 16:54:16 [facility] IV [id number] 16:54:00Interface, External Ris In - 02/11/2021 4:56 PM CDTFINAL REPORT MR, BRAIN, WITHOUT CONTRAST, MR, MRA, BRAIN, WITHOUT CONTRAST, MR, MRA, NECK, WITHOUT IV CONTRAST INDICATION: Stroke, follow upIschemic Stroke Evaluation TECHNIQUE: Multiplanar, multisequence MR imaging of the brain without intravenous contrast.MRA of the head utilizing 3-D setx-tn-utlrkl technique, with 3-D reconstructions.MRA of the neck utilizing 2-D and 3-D inae-ll-orowdg technique, with 3-D reconstructions. COMPARISON: MRI and [...] Lakshmi Amador MDReport Verified Date/Time: 02/11/2021 16:54:16 [facility] without IV [id number] 16:54:00Interface, External Ris In - 02/11/2021 4:56 PM CDTFINAL REPORT MR, BRAIN, WITHOUT CONTRAST, MR, MRA, BRAIN, WITHOUT CONTRAST, MR, MRA, NECK, WITHOUT IV CONTRAST INDICATION: Stroke, follow upIschemic Stroke Evaluation TECHNIQUE: Multiplanar, multisequence MR imaging of the brain without intravenous contrast.MRA of the head utilizing 3-D ennh-mj-wsdbkm technique, with 3-D reconstructions.MRA of the neck utilizing 2-D and 3-D aulu-pn-iodzfj technique, with 3-D reconstructions. COMPARISON: MRI and [...] Signed: Lakshmi Amador Verified Date/Time: 02/11/2021 16:54:16 [facility] CenterRPR2021-05-20 14:02:00 Test Item Value Reference Range Interpretation Comments RPR (test code = 45402-0) Nonreactive Nonreactive Lab Interpretation (test code = Normal 47314-5) [facility] CenterRPR20[facility] 14:02:00 Test Item Value Reference Range Interpretation Comments RPR SCREEN (BEAKER) (test code = Nonreactive Nonreactive 420) Hemoglobin [id number] 09:35:00 Test Item Value Reference Range Interpretation Comments Hemoglobin A1C (test code = 4548-4) 6.0 % 4.3-6.1 Lab Interpretation (test code = Normal 56160-4) [facility] CenterHEMOGLOBIN [id number] 09:35:00 Test Item Value Reference Range Interpretation Comments HEMOGLOBIN A1C (BEAKER) (test code = 6.0 % 4.3-6.1 368) Rapid drug screen, [id number] 07:26:00 Test Item Value Reference Range Interpretation Comments Barbiturate Screen Negative Negative (test code = 50188-5) Benzodiazepine Screen Negative Negative (test code = 70630-6) Cocaine (Metab.) Negative Negative Screen (test code = 3397-7) Methadone Screen (test Negative Negative code = 43481-9) Opiate Screen (test Negative Negative code = 51423-0) Cannabinoid Screen Negative Negative (test code = 28733-2) Amph/Methamph Screen Negative Negative (test code = 73963-9) Phencyclidine Screen Negative Negative (test code = 92049-8) pH, UA (test code = 6.5 5.0-8.0 5803-2) SOMMER (test code = SOMMER) DRUG CUTOFF CONC.Cocaine 300 ng/mL Cannabinoid 50 ng/mLBenzodiazepine 200 ng/mLBarbiturate 200 ng/mLPhencyclidine 25 ng/mLOpiate 300 ng/mLMethadone 300 ng/mLAmphetamine/ 1000 ng/mL Methamphetamine This assay provides an unconfirmed qualitative test result for the clinical management of patients in emergency situations. Chain of custody not maintained. Some etfu-ikz-ltdzbnv medications, as well as adulterants, may cause inaccurate results. Clinical correlation should be applied. A more comprehensive drug screen or confirmation of a detected drug may be performed upon request.[employer] ID - VIET M Lab Interpretation Normal (test code = 03676-5) [facility] CenterRAPID DRUG SCREEN, [id number] 07:26:00 Test Item Value Reference Range Interpretation [...] situations. Chain of custody not maintained. Some qmxd-teh-haessxz medications, as well as adulterants, may cause inaccurate results. Clinical correlation should be applied. A more comprehensivedrug screen or confirmation of a detected drug may be performed upon request.[employer] ID - VIET MUrinalysis with Microscopic If [id number] 07:11:00 Test Item Value Reference Range Interpretation Comments Color, UA (test code = Light Yellow 5778-6) Clarity, UA (test code = Clear 5767-9) Specific [place], UA (test 1.012 1.001-1.035 code = 5811-5) pH, UA (test code = 6.5 5.0-8.0 5803-2) Protein, UA (test code = Negative Negative 05343-8) Glucose, UA (test code = Negative Negative 365) Ketones, UA (test code = Negative Negative 2514-8) Bilirubin, UA (test code = Negative Negative 62219-0) Blood, UA (test code = Small Negative A 28645-0) Nitrite, UA (test code = Negative Negative 5802-4) Leukocytes, UA (test code Small Negative A = 5799-2) Urobilinogen, UA (test 0.2 mg/dL 0.2-1 code = 43199-6) Specimen Source (test code = 2795) SOMMER (test code = SOMMER) [employer] ID - [auto][employer] ID - tech Lab Interpretation (test Abnormal code = 36284-9) [facility] CenterUrinalysis Microscopic [id number] 07:11:00 Test Item Value Reference Range Interpretation Comments RBC, UA (test 11 See_Comment [Automated me ssage] code = 77331-3) The system w [facility] generated this result transmitted ref erence range: /HPF. Th e reference range was not used to int erpret this result as normal/abnormal . WBC, UA (test 11 See_Comment [Automated me ssage] code = 5821-4) The system [facility] generated this result transmitted ref erence range: /HPF. Th e reference range was not used to int erpret this result as normal/abnormal . Mucus (test Rare code = 8247-9) Squam Epithel, 3 See_Comment [Automated m essage] UA (test code = The system [facility] 88503-3) generated this result transmitted ref erence range: /HPF. Th e reference range was not used to int erpret this result as normal/abnormal . SOMMER (test code [employer] ID - tech = SOMMER) [facility] CenterURINALYSIS WITH MICROSCOPIC IF [id number] 07:11:00 Test Item Value Reference Range Interpretation [...] = 463) SOURCE(BEAKER) (test code = 2795) [employer] ID - [auto][employer] ID - techURINALYSIS [id number] 07:11:00 Test Item Value Reference Range Interpretation Comments RBC UA (BEAKER) (test code = 519) 11 /HPF WBC UA (BEAKER) (test code = 520) 11 /HPF MUCUS (BEAKER) (test code = 1574) Rare SQUAMOUS EPITHELIAL (BEAKER) (test 3 /HPF code = 516) [employer] ID - malcomDigoxin zmoyp8172-04-94 06:22:00 Test Item Value Reference Range Interpretation Comments Digoxin Lvl (test code = <0.30 0.8-2 L 48953-2) SOMMER (test code = SOMMER) [employer] ID - MACHELLE L Lab Interpretation (test Abnormal code = 99700-8) [facility] CenterDIGOXIN [id number] 06:22:00 Test Item Value Reference Range Interpretation Comments DIGOXIN LEVEL (BEAKER) (test code = < ng/mL 0.80-2.00 L 669) [employer] ID - MACHELLE OTceljaiscbng8799-63-06 05:58:00 Test Item Value Reference Range Interpretation Comments Homocysteine (test code = 7.3 umol/L 5.1-15.4 48124-6) SOMMER (test code = SOMMER) [employer] ID - MACHELLE L Lab Interpretation (test Normal code = 75286-0) [facility] CenterTSH/Free T4 If Kwwpwoebw9857-88-03 05:58:00 Test Item Value Reference Range Interpretation Comments TSH (test code = 4.368 See_Comment [Automated 87209-3) message] The system which generated this result transmit aida reference range : 0.350 - 4.940 uIU/mL. The reference range was not used to interpret this result as normal/abnormal . SOMMER (test code = SOMMER) [employer] ID - MACHELLE L Lab Interpretation Normal (test code = 28197-0) [facility] CenterVitamin B12 and [id number] 05:58:00 Test Item Value Reference Range Interpretation Comments Vitamin B12 (test 557 pg/mL 213-816 code = 2132-9) Folate (test code = 11.20 ng/mL See_Comment [Automa aida 2284-8) message] The system which generated this result transmit aida reference range : >=7.00. The reference range was not used to interpret this result as normal/abnormal . SOMMER (test code = SOMMER) [employer] ID - MACHELLE L Lab Interpretation Normal (test code = 20312-2) [facility] CenterYhqrkuILBOMYRRAAKS7814-05-52 05:58:00 Test Item Value Reference Range Interpretation Comments HOMOCYSTEINE (BEAKER) (test code = 7.3 umol/L 5.1-15.4 642) [employer] ID Jodie CARTY LTSH/FREE T4 IF [id number] 05:58:00 Test Item Value Reference Range Interpretation Comments THYROID STIMULATING HORMONE 4.368 uIU/mL 0.350-4.940 (BEAKER) (test code = 772) [employer] ID Jodie CARTY LVITAMIN B12 AND [id number] 05:58:00 Test Item Value Reference Range Interpretation Comments VITAMIN B12 557 pg/mL 213-816 (BEAKER) (test code = 774) FOLATE (BEAKER) 11.20 ng/mL See_Comment [Automated message] (test code = 362) The system which generated this result transmitted ref erence range: >=7.00. The reference range was not used to interpr et this result as normal/abnormal . [employer] ID - MACHELLE LC-Reactive Gbayedc4809-23-73 04:54:00 Test Item Value Reference Range Interpretation Comments CRP (test code = 676) 0.81 mg/dL 0-0.5 H SOMMER (test code = SOMMER) [employer] ID - MACHELLE L Lab Interpretation (test Abnormal code = 84666-2) [facility] CenterMAGNESIUM2021-05-20 04:54:00 Test Item Value Reference Range Interpretation Comments MAGNESIUM (BEAKER) 2.1 mg/dL 1.6-2.6 Specimen slightly (test code = 627) hemolyzed [employer] ID - MACHELLE [id number] 04:54:00 Test Item Value Reference Range Interpretation Comments PHOSPHORUS (BEAKER) 4.3 mg/dL 2.3-4.7 Specimen slightly (test code = 604) hemolyzed [employer] ID - PIDEANN LBASIC METABOLIC [id number] 04:54:00 Test Item Value Reference Range Interpretation [...] S NOT APPLICABLE FOR DIALYSIS PATIEN TS. [employer] ID - MACHELLE LC-REACTIVE [id number] 04:54:00 Test Item Value Reference Range Interpretation Comments C-REACTIVE PROTEIN (BEAKER) (test 0.81 mg/dL 0.00-0.50 H code = 676) [employer] ID - MACHELLE LCBC W/PLT COUNT & AUTO [id number] 02:54:00 Test Item Value Reference Range Interpretation [...] = 2801) RAD, CHEST, 1 VIEW, NON [id number] 22:40:00Reason for exam:->strokeShould this be performed at [...] Nieves Verified Date/Time: 02/10/2021 22:40:02 Reading Location: [address] Transitional Reading Room XR chest 1 view portable / [id number] 22:40:00Interface, External Ris In - 02/10/2021 10:42 [...] Nieves Verified Date/Time: 02/10/2021 22:40:02 Reading Location: [address] Transitional Reading Room [facility] CenterCBC [facility]/PLT COUNT & AUTO [id number] 22:16:00 Test Item Value Reference Range Interpretation [...] Range Interpretation Comments BNP (test code = 67641-7) <10 0-100 SOMMER (test code = SOMMER) [employer] ID - BS Lab Interpretation (test Normal code = 67893-6) [facility] CenterB-TYPE NATRIURETIC FACTOR (BNP)2021-02-10 22:04:00 Test Item Value Reference Range Interpretation Comments B-TYPE NATRIURETIC PEPTIDE (BEAKER) < pg/mL 0-100 (test code = 700) [employer] ID - BSHigh Sensitivity Troponin I (BSJD [facility]/Haley Only)2021-02-10 21:57:00 Test Item Value Reference Range Interpretation Comments Troponin I HS <4 See_Comment [Automated (test code = message] The 02793-9) system which generated this result transmitted reference range : <=17 pg/ml. The reference range was not used to interpret this result as normal/abnormal . SOMMER (test code = [employer] ID - SOMMER) BSThe EMAIL MANAGER STAT High Sensitivity Troponin-I results should be used in conjunction with other diagnostic information such as ECG, clinical observations and information, and patient symptoms to aid in the diagnosis of NM. Lab Interpretation Normal (test code = 48718-8) [facility] CenterHIGH SENSITIVITY TROPONIN [id number] 21:57:00 Test Item Value Reference Range Interpretation Comments HIGH SENSITIVITY < pg/ml See_Comment [Automated message] TROPONIN I (test code = The system which 4980771) generated this result transmitted ref erence range: <=17. Th e reference range was not used to interpr et this result as normal/abnormal . [employer] ID - BSThe EMAIL MANAGER STAT High Sensitivity Troponin-I results should be used in conjunctionwith other diagnostic information such as ECG, clinical observations and information, and patient symptoms to aid in the diagnosis of NM.Lipid [id number] 21:54:00 Test Item Value Reference Range Interpretation Comments Triglycerides (test 171 mg/dL Specimen code = 2571-8) markedly hemolyzed Cholesterol (test 218 mg/dL Specimen code = 2093-3) markedly hemolyzed HDL (test code = 47 mg/dL 5-9) LDL Calculated (test 137 mg/dL code = 89739-8) SOMMER (test code = Triglyceride SOMMER) Reference Range: Low Risk <150 Borderline 150-199 High Risk 200-499 Very High Risk >=500 Cholesterol Reference Range: Low Risk <200 Borderline 200-239 High Risk >240 HDL Cholesterol Reference Range: Low Risk >=60 High Risk <40 LDL Cholesterol Reference Range: Optimal <100 Near Optimal 100-129 Borderline 130-159 High 160-189 Very High >=190 [employer] ID - BS [facility] CenterLIPID [id number] 21:54:00 Test Item Value Reference Range Interpretation [...] Borderline 130-159 High 160-189 Very High >=190 [employer] ID - BSComprehensive metabolic nnojz2839-38-76 21:52:00 Test Item Value Reference Range Interpretation Comments Protein, Total 8.0 See_Comment Specimen slig htly (test code = hemolyzed 2884-2) [Automated message] The system which generated this result transmit aida reference range : 6.0 - 8.3 gm/dL . The reference range was not u sed to interpret th is result as normal/abnormal . Albumin (test code 4.2 g/dL 3.5-5 Specimen slightly = 80472-6) hemolyzed Alkaline 135 U/L 40-150 Phosphatase (test code = 6768-6) Total Bilirubin 0.2 mg/dL 0.2-1.2 Specimen sli ghtly (test code = hemolyzed 1974-2) Sodium (test code = 139 meq/L 903-782 0850-2) Potassium (test 4.5 meq/L 3.5-5.1 Specimen sli ghtly code = 2823-3) hemolyzed Chloride (test code 103 meq/L 98-107 = 2075-0) CO2 (test code = 25 meq/L -2027-) BUN (test code = 9 mg/dL 7- 3094-0) Creatinine (test 0.78 mg/dL 0.57-1.25 Specimen sl ightly code = 2160-0) hemolyzed Glucose (test code 105 mg/dL 70-105 = 2345-7) Calcium (test code 9.6 mg/dL 8.4-10.2 = 58877-1) AST (test code = 28 U/L 5-34 Specimen sl ightly 1920-8) hemolyzed ALT (test code = 52 U/L 6-55 Specimen sl ightly 1742-6) hemolyzed EGFR (test code = 82 mL/min/1.73 [place] [address]-1) NOT ACCURATE CREATININE CLEARANCE IN PREDICTING GLOMERULAR FILTRATION RATE . ESTIMATED GFR I S NOT APPLICABLE FOR DIALYSIS PATIEN TS. SOMMER (test code = [employer] ID - BS SOMMER) [facility] CenterCreatine Kinase (CK)2021-02-10 21:52:00 Test Item Value Reference Range Interpretation Comments Total CK (test code = 70 U/L 29-200 2156-6) SOMMER (test code = SOMMER) [employer] ID - BS Lab Interpretation (test Normal code = 08867-9) [facility] CenterMAGNESIUM2021-05-19 21:52:00 Test Item Value Reference Range Interpretation Comments MAGNESIUM (BEAKER) 2.2 mg/dL 1.6-2.6 Specimen slightly (test code = 627) hemolyzed [employer] ID - [id number] 21:52:00 Test Item Value Reference Range Interpretation Comments PHOSPHORUS (BEAKER) 4.4 mg/dL 2.3-4.7 Specimen slightly (test code = 604) hemolyzed [employer] ID - BSCOMPREHENSIVE METABOLIC [id number] 21:52:00 Test Item Value Reference Range Interpretation [...] S NOT APPLICABLE FOR DIALYSIS PATIEN TS. [employer] Intern[employer] ID - BSCREATINE KINASE (CK)2021-02-10 21:52:00 Test Item Value Reference Range Interpretation Comments CREATINE KINASE TOTAL (BEAKER) (test 70 U/L 29-200 code = 380) [employer] ID - UMtZSG9244-45-51 21:46:00 Test Item Value Reference Range Interpretation Comments PTT (test code = 95809-5) 30.5 See_Comment [ Automated message] The system [employer] generated this result transmitted ref erence range: 22.5 - 3 6.0 seconds. The re ference range was not u sed to interpret this result as normal/abnor mal. Lab Interpretation (test Normal code = 82475-5) [facility] CenterLactic acid, [id number] 21:46:00 Test Item Value Reference Range Interpretation Comments Lactate, Venous (test 1.96 mmol/L 0.5-2.2 Specim en code = 2872) markedly hemolyzed SOMMER (test code = SOMMER) [employer] ID - BS Lab Interpretation Normal (test code = 16242-3) [facility] CenterAPTT2021-05-19 21:46:00 Test Item Value Reference Range Interpretation Comments PARTIAL THROMBOPLASTIN TIME 30.5 seconds 22.5-36.0 (BEAKER) (test code = 760) LACTIC ACID, [id number] 21:46:00 Test Item Value Reference Range Interpretation Comments LACTATE BLOOD VENOUS 1.96 mmol/L 0.50-2.20 Specime n markedly (2) (BEAKER) (test hemolyzed code = 2872) [employer] ID - BSProthrombin time/[id number] 21:45:00 Test Item Value Reference Interpretation Comments Range Protime (test code = 12.7 See_Comment [Autom ated 5902-2) message] The system which generated this result transmitted reference range : 11.9 - 14.2 seconds. The reference range was not used to interpret this result as normal/abnormal . INR (test code = 0.98 See_Comment [Automated 7161-6) message] The system which generated this result [...] valves. Lab Interpretation Normal (test code = 47831-5) [facility] CenterPROTHROMBIN TIME/[id number] 21:45:00 Test Item Value Reference Range Interpretation Comments PROTIME (BEAKER) 12.7 seconds 11.9-14.2 (test code = 759) INR (BEAKER) (test 0.98 See_Comment [Automat ed message] code = 370) The system [employer] generated this result transmitted ref erence range: <=5.90. The reference range was not used to int erpret this result as normal/abnormal . RECOMMENDED COUMADIN/WARFARIN INR THERAPY RANGESSTANDARD DOSE: 2.0 - 3.0 Includes: PROPHYLAXIS forvenous thrombosis, systemic embolization; TREATMENT for venous thrombosis and/or pulmonary embolus.HIGH RISK: Target INR is 2.5-3.5 for patients with mechanical heart valves.POC-Glucose [id number] 21:39:00 Test Item Value Reference Range Interpretation Comments POC-Glucose Meter (test 93 mg/dL 70-110 : TE STED AT [facility] code = 1538) [address] [facility], [address]: [employer]/Techni rhonda ID = [id number] for AILYN JAVIER Lab Interpretation (test Normal code = 29074-2) [facility] CenterPOCT-GLUCOSE [id number] 21:39:00 Test Item Value Reference Range Interpretation Comments POC-GLUCOSE METER 93 mg/dL 70-110 : TESTED A T [facility] 6720 (BEAKER) (test code = AYLIN Rivera [facility], 1538) [address]: [employer]/Techni rhonda ID = [id number] for GERTRUDE SHAY [id number] 15:45:00 Test Item Value Reference Range Interpretation Comments SURG (test code = SURG) RUN DATE: 09/30/[address] [facility] PAGE 1 RUN TIME: 1545 Specimen Inquiry RUN USER: INTERFACE PATIENT: ADAM MARSH LOC: GA U #: [id number] AGE/SX: 40/F ROOM: RE09/29/20REG DR: Linus Boone MD : 82 BED: DIS: STATUS: DEP [facility] TLOC: SPEC #: PMC:S-11-21 RECD: 09/29/20 STATUS: MACIEL DEY #: [id number] WU: 09/29/20 [facility] DR: Linus Boone MD ENTERED: 09/29/20 SP TYPE: SURG OTHR DR: Undefined Provider ORDERED: SURG PATH LVL 4 COPIES TO: Linus Boone MD [address] [place] [id number] Undefined Provider HISTOLOGY: TISSUE ID BLK PCS DHIRAJ LEV PROCEDURE DISPOSITION ____ ___ ___ ___ STOMACH, NOS A 1 2 PROCEDURES: SURG PATH LVL 4 (09/29/20) TISSUES: A. STOMACH, NOS - GASTRIC BIOPSY CLINICAL HISTORY R10.13, K21.9, K92.0, R14.0, R11.2, R19.7, R19.4 CPT CODES CPT CODE(S): 97286 , , , , , , FINAL DIAGNOSIS Stomach, biopsy: MILD CHRONIC GASTRITIS NEGATIVE FOR INTESTINAL METAPLASIA, DYSPLASIA, OR MALIGNANCY NEGATIVE FOR HELICOBACTER PYLORI ORGANISMS GROSS DESCRIPTION Gastric biopsy. Received in formalin are two wilkinson tissue fragments, 0.4 cm each, all as A. bk/nr Grossing performed at [facility] Pathology, [facility] [facility], [address], [place], [place] [address]. Director Microbiology: Aditya Hanson M.D. CONTINUED ON NEXT PAGE RUN DATE: 09/30/[address] [facility] PAGE 2 RUN TIME: 1545 Specimen Inquiry RUN USER: INTERFACE SPEC #: [facility]:S-[id number] PATIENT: ADAM MARSH #[id number] (Continued) MICROSCOPIC DESCRIPTION Gastric biopsy. Sections demonstrate gastric mucosa with mild chronic inflammation. No dysplasia or malignancy is identified. No evidence of Helicobacter pylori organisms or intestinal metaplasia is seen. Signed SIGNATURE ON FILE Hector Issa 09/30/20 1545 END OF REPORT COVID 19 INHOUSE [id number] 13:41:00 Test Item Value Reference Range Interpretation Comments COVID 19 INHOUSE AG NEGATIVE Negative Per marino factmallory, (test code = negative result s should [id number]) be treated aspr esumptive and, if inconsi [...] symptoms co nsistent with COVID-19. BASIC METABOLIC [id number] 13:40:00 Test Item Value Reference Range Interpretation [...] MG/DL 8.5-10.1 N - XR CHEST 1 [id number] 13:33:00 [facility] 1980 Sex: F Name: ADAM MARSH [place] : [birth year] Age/S: 40 / F [id number] Unit #: [id number] Loc: [place] [address] Phys: Linus Boone MD Acct: [id number] Dis Date: Status: PRE AKC PHONE #: [phone] Exam Date: 09/28/2020 1326 FAX #: Reason: PREOP EXAMS: CPT: [id number] XR CHEST 1 V 07805 Fluoro Time: DAP (Gy m2): Air Kerma [...] PAGE 1 Signed Report Name: ADAM MARSH [place] : 1980 Age/S: 40 / F [address] Unit #: [id number] Loc: [place] [address] Phys: Linus Boone MD Acct: [id number] Dis Date: Status: PRE SDC PHONE #: [phone] Exam Date: 09/28/2020 1326 FAX #: Reason: PREOP EXAMS: CPT: [id number] XR CHEST 1 V 68739 Fluoro Time: DAP (Gy m2): Air Kerma (mGy): <Continued> Technologist: Shari Davila RT(R)(CT) Trnscb Date/Time: 09/28/2020 (4878) 16 Orig Print D/T: S: 09/28/2020 (2769) PAGE 2 SignedReportPROTHROMBIN [id number] 13:29:00 Test Item Value Reference Range Interpretation Comments PT PATIENT (test code = PTP) 10.6 SECONDS 9.3-12.9 N INTERNATIONAL NORMAL RATIO 0.95 INR Unit 0.8-1.2 N (test code = INR) THROMBOPLASTIN TIME [id number] 13:29:00 Test Item Value Reference Range Interpretation Comments THROMBOPLASTIN TIME PARTIAL 28.0 SECONDS 26-35 N (test code = PTT) CBC W/AUTO [id number] 13:26:00 Test Item Value Reference Range Interpretation [...] code NO DIFF/SCN CRITERIA = MDIFF) POCT-GLUCOSE [id number] 10:22:00 Test Item Value Reference Range Interpretation Comments POC-GLUCOSE METER 102 mg/dL 70-110 TESTED AT [place] [address] ([facility]) (test code = AYLIN Rivera [facility] 1538) [address] MR, MRA, BRAIN, WITHOUT [id number] 09:32:00Reason for exam:->Ischemic Stroke EvaluationFINAL REPORT MRA Head CLINICAL HISTORY: Ischemic Stroke TECHNIQUE: MRA of the head utilizing 3-D yiyw-me-etcxmd technique, with 3-D reconstructions. COMPARISON: None FINDINGS: There is no evidence of intracranial aneurysm, focal stenosis, or major branch vessel occlusion. IMPRESSION: No evidence for a major [place] proximal branch vessel occlusion. MRA Neck CLINICAL HISTORY: Ischemic Stroke TECHNIQUE: MRA of the neck utilizing 2-D and 3-D adge-ph-ektona technique, with 3-D reconstructions. COMPARISON: None FINDINGS: The carotid arteries in the neck are patent including their bifurcations. There is antegrade flow in the vertebral arteries in the neck. IMPRESSION: No evidence of hemodynamically significant stenosis in the cervical carotid or vertebral arteries by NASCET criteria. Signed: Santos Winn MDRkarenort Verified Date/Time: 08/21/2018 09:32:09 Reading Location: [address] Neuro Reading Room MR, MRA, NECK, WITHOUT IV [id number] 09:32:00Reason for exam:->Ischemic Stroke EvaluationFINAL REPORT MRA Head CLINICAL HISTORY: Ischemic Stroke TECHNIQUE: MRA of the head utilizing 3-D bxbm-vk-ilkezd technique, with 3-D reconstructions. COMPARISON: None FINDINGS: There is no evidence of intracranial aneurysm, focal stenosis, or major branch vessel occlusion. IMPRESSION: No evidence for a major [place] proximal branch vessel occlusion. MRA Neck CLINICAL HISTORY: Ischemic Stroke TECHNIQUE: MRA of the neck utilizing 2-D and 3-D jwza-ia-shrmxv technique, with 3-D reconstructions. COMPARISON: None FINDINGS: The carotid arteries in the neck are patent including their bifurcations. There is antegrade flow in the vertebral arteries in the neck. IMPRESSION: No evidence of hemodynamically significant stenosis in the cervical carotid or vertebral arteries by NASCET criteria. Signed: Santos Winn Verified Date/Time: 08/21/2018 09:32:09 Reading Location: [address] Neuro Reading Room MR, BRAIN, WITHOUT [id number] 09:25:00Reason for exam:- >Ischemic Stroke EvaluationFINAL REPORT [...] Winn Verified Date/Time: 08/21/2018 09:25:25 Reading Location: [facility] C013V [facility] Room POCT-GLUCOSE [id number] 21:26:00 Test Item Value Reference Range Interpretation Comments POC-GLUCOSE METER 119 mg/dL 70-110 H TESTED AT [place] [address] ([facility]) (test code = [employer] [facility] 1538) [address] POCT-GLUCOSE [id number] 18:03:00 Test Item Value Reference Range Interpretation Comments POC-GLUCOSE METER 119 mg/dL 70-110 H TESTED AT [place] [address] ([facility]) (test code = [employer] [facility] 1538) [address] POCT-GLUCOSE [id number] 12:39:00 Test Item Value Reference Range Interpretation Comments POC-GLUCOSE METER 120 mg/dL 70-110 H TESTED AT [place] [address] ([facility]) (test code = [employer] [facility] 1538) [address] RAD, CHEST, 1 VIEW, NON [id number] 12:04:00Reason for exam:->To Locate Heart Device (Pacemaker)Should [...] 12:04:06 Reading Location: [facility] Radiology Reading Room POCT-GLUCOSE [id number] 09:17:00 Test Item Value Reference Range Interpretation Comments POC-GLUCOSE METER 121 mg/dL 70-[address] [facility] 6720 (BEAKER) (test code = [facility] 1538) [address] BASIC METABOLIC [id number] 06:56:00 Test Item Value Reference Range Interpretation [...] NOT APPLICABLE FOR DIALYSIS PATIEN TS. POCT-GLUCOSE [id number] 21:09:00 Test Item Value Reference Range Interpretation Comments POC-GLUCOSE METER 109 mg/dL 70-[address] [facility] 6720 (BEAKER) (test code = [facility] 1538) [address] POCT-GLUCOSE [id number] 17:15:00 Test Item Value Reference Range Interpretation Comments POC-GLUCOSE METER 117 mg/dL 70-110 H TESTED AT [place] [id number] (BEAKER) (test code = [facility] 1538) [address] VITAMIN B12 AND [id number] 06:39:00 Test Item Value Reference Range Interpretation Comments VITAMIN B12 (BEAKER) (test code = 524 pg/mL 213-816 774) FOLATE (BEAKER) (test code = 362) 13.5 ng/mL >=7.0 BASIC METABOLIC [id number] 05:48:00 Test Item Value Reference Range Interpretation [...] S NOT APPLICABLE FOR DIALYSIS PATIEN TS. [id number] 15:42:00 Test Item Value Reference Range Interpretation Comments RPR SCREEN (BEAKER) (test code = Nonreactive Nonreactive 420) HEMOGLOBIN [id number] 09:14:00 Test Item Value Reference Range Interpretation Comments HEMOGLOBIN A1C (BEAKER) (test code = 5.3 % 4.3-6.1 368) TSH/FREE T4 IF [id number] 04:49:00 Test Item Value Reference Range Interpretation Comments THYROID STIMULATING HORMONE 3.18 uIU/mL 0.35-4.94 (BEAKER) (test code = 772) BASIC METABOLIC [id number] 04:38:00 Test Item Value Reference Range Interpretation [...] NOT APPLICABLE FOR DIALYSIS PATIEN TS. LIPID [id number] 04:38:00 Test Item Value Reference Range Interpretation [...] 130-159 High 160-189 Very High >=190HEPATIC FUNCTION [id number] 04:38:00 Test Item Value Reference Range Interpretation [...] (test code = 413) AFB Culture and [id number] 13:24:00Specimen/Source: Wound/PACEMAKERCollected: 09/05/2017 19:45 Status: Final Last Updated: 11/01/2017 13:24 YJD-Wnlli-Gdgfwezdopww (Final) (Final) 09/07/17 No acid fast bacill seen on direct smear Culture Result (Final) (Final) 11/01/17 No growth of AFB at six (6) weeksFungus Culture with [id number] 12:12:00 Specimen/Source: Wound/PACEMAKERCollected: 09/05/2017 19:45 Status: Final Last Updated: 10/22/2017 12:12 Fungal Smear Result (Final) (Final) 09/06/17 No yeast or hyphae seen Culture Result (Final) (Final) 10/22/17 No fungus isolated at 6 weeksCulture, Blood [id number] 08:23:00Specimen: BloodCollected: 09/04/2017 20:30 Status: Final Last Updated: 09/10/2017 08:23 Culture Result (Final) (Final) No Growth After 5 DaysCulture, Blood [id number] 08:23:00Specimen: BloodCollected: 09/04/2017 20:15 Status: Final Last Updated: 09/10/2017 08:23 Culture Result (Final) (Final) No Growth After 5 DaysCulture, Wound [id number] 08:52:00Specimen: WoundCollected: 09/05/2017 19:45 Status: Final Last Updated: 09/08/2017 08:52 Gram Stain (Final) (Final) 09/06/17 No organisms seen, Few WBC's Culture Result (Final) (Final) 09/08/17 Anaerobic culture:No anaerobes isolated at 3 days Isolate (Final) (Final) 09/07/17Few Staph-coag positive Isolate Staph-coag positive JERMAINE (mcg/ml) Amoxicillin/Clav (AUG)<=4/2 Susceptible Ampicillin (AM) >8 Resistant Ampicillin/Sulb (A/S) <=8/4 Susceptible Cefazolin (CFZ) <=4 Susceptible Ceftriaxone (SALESPERSON SEWING MACHINES) <=4 Susceptible Chloramphenicol (C) <=8 Susceptible Ciprofloxacin (CP) <=1 Susceptible Clindamycin (CM) 0.5 Susceptible Erythromycin (E) <=0.25 Susceptible Gentamicin (GM) <=1 Susceptible Imipenem (IMP) <=4 Susceptible Levofloxacin (LEV) <=0.5 Susceptible Linezolid (LNZ) 4 Susceptible Oxacillin (OX1) 0.5 Susceptible Penicillin (P) >8 Resistant Rifampin (RA) <=1 Susceptible Tetracycline (TE) <=1 Susceptible Trimethoprim/Sulfa <=0.5/9.Susceptible (SXT) 5 Vancomycin (VA) 2 SusceptibleRenal [id number] 08:51:00 Test Item Value Reference Range Interpretation [...] National Kidney Foundation,http ://nkd ep.nih.gov CBC with [id number] 07:39:00 Test Item Value Reference Range Interpretation [...] code = ALYMPH) 1.7 K/cumm 0.5-4.6 N [place] Abs (test code = AMONO) 0.3 K/cumm 0.0-1.2 N Eos Abs (test code = AEOS) 0.29 K/cumm 0.00-0.74 N Baso Abs (test code = ABASO) 0.0 K/cumm 0.00-0.21 N Vancomycin, [id number] 12:33:00 Test Item Value Reference Range Interpretation Comments Vanco, Trou (test code = VANTR) 7.9 ug/mL 10.0-20.0 L Magnesium, [id number] 06:37:00 Test Item Value Reference Range Interpretation Comments Magnesium (test code = MG) 2.4 mg/dL 1.7-2.5 N Renal [id number] 06:29:00 Test Item Value Reference Range Interpretation [...] National Kidney Foundation,http ://nkd ep.nih.gov BHCG, Serum, [id number] 06:26:00 Test Item Value Reference Range Interpretation Comments Preg Qual [Se] (test code = BSHCG) Negative Negative N CBC with [id number] 06:24:00 Test Item Value Reference Range Interpretation [...] code = ALYMPH) 1.6 K/cumm 0.5-4.6 N [place] Abs (test code = AMONO) 0.4 K/cumm 0.0-1.2 N Eos Abs (test code = AEOS) 0.18 K/cumm 0.00-0.74 N Baso Abs (test code = ABASO) 0.0 K/cumm 0.00-0.21 N XR CHEST 1 [id number] 16:29:55XR CHEST 1 VIEWLOCATION: [id number]: None.INDICATION: REVIEW PICC LINE PLACEMENTDISCUSSION:AP chest and [...] = TSH) 3.44 mIU/mL 0.270-4.200 N Lipid [id number] 05:47:00 Test Item Value Reference Range Interpretation [...] (test code = 3 LDLPHDL) Basic Metabolic [id number] 05:47:00 Test Item Value Reference Range Interpretation [...] the National Kidney Foundation,http ://nkd ep.nih.gov Magnesium, [id number] 05:47:00 Test Item Value Reference Range Interpretation Comments Magnesium (test code = MG) 2.3 mg/dL 1.7-2.5 N CBC with [id number] 05:36:00 Test Item Value Reference Range Interpretation [...] code = ALYMPH) 2.2 K/cumm 0.5-4.6 N [place] Abs (test code = AMONO) 0.3 K/cumm 0.0-1.2 N Eos Abs (test code = AEOS) 0.24 K/cumm 0.00-0.74 N Baso Abs (test code = ABASO) 0.0 K/cumm 0.00-0.21 N Partial Thromboplastin [id number] 21:26:00 Test Item Value Reference Range Interpretation Comments aPTT (test code = PTT) 29.00 seconds 24.39-37.25 N Prothrombin [id number] 21:26:00 Test Item Value Reference Range Interpretation Comments PT (test code = PT) 10.70 seconds 9.78-13.35 N INR (test code = INR) 0.95 Ratio 0.6-1.2 N Comprehensive Metabolic [id number] 21:23:00 Test Item Value Reference Range Interpretation [...] National Kidney Foundation,http ://nkd ep.nih.gov CBC with [id number] 21:16:00 Test Item Value Reference Range Interpretation [...] code = ALYMPH) 2.2 K/cumm 0.5-4.6 N [place] Abs (test code = AMONO) 0.4 K/cumm 0.0-1.2 N Eos Abs (test code = AEOS) 0.17 K/cumm 0.00-0.74 N Baso Abs (test code = ABASO) 0.1 K/cumm 0.00-0.21 N
[2022-03-19 00:40] LABS: Absolute Lymphocytes (CBC) 2.1 K/uL (0.7-4.9); Hematocrit 39.2 % (36.0-45.0); Lymphocytes % 24.6 % (15.3-44.8); MPV 8.5 fL (7.6-11.3); RBC Red Blood Cell Count 4.61 M/uL (3.86-4.86)
[2022-03-19 00:58] LABS: Potassium 3.6 mmol/L (3.5-5.1); Troponin High Sensitivity 5.9 pg/mL (<58.9)
--- NOTE | 2022-03-19 04:00 | ER ---
Nurse's Notes [facility] Name: Jenni Draper Age: 41 yrs Sex: Female : 1980 Arrival Date: 03/18/2022 Time: 22:40 Bed 23 Private MD: Diagnosis: Syncope Presentation: 03/18 23:08 Chief complaint: Patient states: "I passed out, my neck hurts, and I am having double lp1 vision"; Reports passing out about 2130 today while walking into the house, reports hitting head. Coronavirus screen: At this time, the client does not indicate any symptoms associated with coronavirus-19. Ebola Screen: No symptoms or risks identified at this time. Onset of symptoms was March 18, 2022. 23:08 Method Of Arrival: Wheelchair lp1 23:08 Acuity: LYUBOV 3 lp1 23:09 Note Reports passed out yesterday as well and evaluated at [facility] and lp1 discharged. 23:13 Initial Sepsis Screen: Does the patient meet any 2 criteria? No. Patient's initial lp1 sepsis screen is negative. Does the patient have a suspected source of infection? No. Patient's initial sepsis screen is negative. Risk Assessment: Do you want to hurt yourself or someone else? Patient reports no desire to harm self or others. 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 lp1 Historical: - Allergies: 23:10 Adhesives; lp1 23:10 Aspirin; lp1 23:10 Bactrim; lp1 23:10 Benadryl; lp1 23:10 cefixime; lp1 23:10 Cipro IV; lp1 23:10 Clindamycin; lp1 23:10 coconut oil; lp1 23:10 Detrol; lp1 23:10 Diltiazem; lp1 23:10 Doxycycline; lp1 23:10 FISH PRODUCT DERIVATIVES; lp1 23:10 GABAPENTIN; lp1 23:10 Hydrocodone-Acetaminophen; lp1 23:10 Iodine; lp1 23:10 ivabradine; lp1 23:10 Latex, Natural Rubber; lp1 23:10 Morphine; lp1 23:10 PENICILLINS; lp1 23:10 Seroquel; lp1 23:10 Sulfa (Sulfonamide Antibiotics); lp1 23:10 tramadol; lp1 - Home Meds: 23:10 albuterol sulfate 2.5 mg /3 mL (0.083 %) Inhl nebu 3 mL 3 times per day [Active]; lp1 apixaban 5 mg Oral tab 1 tab 2 times per day [Active]; Breo Ellipta inhalation [Active]; BuSpar Oral [Active]; carvedilol 25 mg Oral tab 1 tab 2 times per day [Active]; Crestor 5 mg Oral tab 1 tab once daily [Active]; digoxin 125 mcg (0.125 mg) Oral tab 1 tab once daily [Active]; Keppra 750 mg Oral tab 1 tab [Active]; Lasix 20 mg Oral tab 1 tab [Active]; Nexium 20 mg Oral cpDR 1 cap once daily [Active]; nitroglycerin 0.4 mg Oral [Active]; pregabalin 50 mg Oral cap 1 cap 3 times per day [Active]; Spiriva with HandiHaler inhalation [Active]; Ubrelvy 100 mg Oral tab 1 tab [Active]; venlafaxine 150 mg Oral cp24 1 cap once daily [Active]; Vraylar 4.5 mg Oral cap once daily [Active]; Xanax 0.25 mg Oral tab 1 tab [Active]; - PMHx: 23:10 Asthma; Atrial fibrillation; CVA; Depression; DVT; Hypertensive disorder; Migraine; lp1 Seizure; TIA; - PSHx: 23:10 Cholecystectomy; left shoulder; Ligation of fallopian tube; pace maker placement; right lp1 hand cyst removal; 03/19 03:54 hysterectomy; bb - Immunization history:: Adult Immunizations up to date, Client reports receiving the 2nd dose of the Covid vaccine. - Social history:: Smoking status: Patient/guardian denies using tobacco, the patient reports quitting approximately 18 years ago. Screenin:00 Abuse screen: Denies threats or abuse. Nutritional screening: No deficits noted. jb4 Tuberculosis screening: No symptoms or risk factors identified. Fall Risk None identified. Assessment: 00:00 General: Appears in no apparent distress. comfortable, Behavior is calm, cooperative, jb4 appropriate for age. Pain: Denies pain. Neuro: Foss Agitation-Sedation Scale (RASS): 0 - Alert and Calm Level of Consciousness is awake, alert, obeys commands, Oriented to person, place, time, situation. Cardiovascular: Patient's skin is warm and dry. Respiratory: Airway is patent Respiratory effort is even, unlabored, Respiratory pattern is regular, symmetrical. Derm: Skin is intact, Skin is pink, warm \\T\\ dry. Musculoskeletal: Circulation, motion, and sensation intact. Range of motion:. 01:06 Reassessment: Patient appears in no apparent distress at this time. Patient and/or jb4 family updated on plan of care and expected duration. Pain level reassessed. Patient is alert, oriented x 3, equal unlabored respirations, skin warm/dry/pink. 02:31 Reassessment: Patient appears in no apparent distress at this time. Patient and/or jb4 family updated on plan of care and expected duration. Pain level reassessed. Patient is alert, oriented x 3, equal unlabored respirations, skin warm/dry/pink. 04:20 Reassessment: Patient is alert, oriented x 3, equal unlabored respirations, skin bb warm/dry/pink. pt verbalized understanding of and agrees to plan of care discharge instructions given pt ambulated with cane to exit accompanied by spouse. Vital Signs: 03/18 23:13 BP 116 / 83; Pulse 100; Resp 18; Temp 97.8(TE); Pulse Ox 100% on R/A; Weight 56.7 kg lp1 (R); Height 4 ft. 11 in. (149.86 cm); Pain 9/10; 03/19 01:00 BP 101 / 70; Pulse 85; Resp 16; Pulse Ox 97% on R/A; jb4 02:41 BP 127 / 87; Pulse 77; Resp 16; Pulse Ox 97% on R/A; jb4 03:45 BP 109 / 78 Supine; Pulse 85; bb 03:47 BP 129 / 92 Sitting; Pulse 90; bb 03:51 BP 123 / 94 Standing; Pulse 92; bb 03/18 23:13 Body Mass Index 25.25 (56.70 kg, 149.86 cm) lp1 ED Course: 03/18 22:40 Patient arrived in ED. bp1 22:40 Patient's name was called from ER lobby. No response. lp1 23:09 Triage completed. lp1 23:55 CT Head C Spine In Process Unspecified. EDMS 03/19 00:00 Patient has correct armband on for positive identification. Bed in low position. Call jb4 light in reach. Side rails up X 1. Client placed on continuous cardiac and pulse oximetry monitoring. NIBP monitoring applied. 00:00 Initial lab(s) drawn, by me, sent to lab. Inserted saline lock: 20 gauge in left jb4 forearm, using aseptic technique. Blood collected. 00:02 Gary Lyn, RN is Primary Nurse. jb4 00:14 Davion Hernandez MD is Attending Physician. [facility] 03:28 Chest Single View XRAY In Process Unspecified. EDMS 03:59 Nadeem Rajan MD is Referral Physician. 7 04:20 No provider procedures requiring assistance completed. IV discontinued, intact, bb bleeding controlled, No redness/swelling at site. Pressure dressing applied. Administered Medications: No medications were administered Medication: 01:00 VIS not applicable for this client. jb4 Outcome: 04:00 Discharge ordered by . [facility] 04:20 Patient left the ED. bb 04:20 Discharged to home ambulatory, with family. bb 04:20 Condition: stable 04:20 Discharge instructions given to patient, Instructed on discharge instructions, follow up and referral plans. Demonstrated understanding of instructions, follow-up care. Signatures: Dispatcher [employer] EDMS Denisse Stewart RN RN bb Pena, Laura, RN RN lp1 Gary Lyn, RN RN 4 Coni Nuñez Maurice, MD MD [facility] Corrections: (The following items were deleted from the chart) 03:54 03:53 Allergies: hysterectomy; bb bb
--- NOTE | 2022-03-19 04:00 | EDPHYS ---
Physician Documentation [facility] Name: Jenni Draper Age: 41 yrs Sex: Female : 1980 Arrival Date: 03/18/2022 Time: 22:40 Bed 23 Private MD: ED Physician Davion Hernandez HPI: 03/19 00:15 This 41 yrs old Female presents to ER via Wheelchair with complaints of Passed Out mh7 Prior To Arrival, Vision Problem, Neck Pain, <24hrs Old. 00:15 The patient has experienced syncope, collapsed. Onset: The symptoms/episode mh7 began/occurred last night. Duration: This was a single episode, that lasted an unknown period of time. Context: the episode(s) was witnessed, by no one, the downtime is unknown, occurred at home, occurred while the patient was walking, Just prior to the episode the patient experienced no apparent symptoms. Associated injury: Head/face: posterior scalp, contusion, Neck: pain. Associated signs and symptoms: Pertinent negatives: abdominal pain, agitation, ataxia, blurred vision, chest pain, combativeness, confusion, diaphoresis, diarrhea, dizziness, headache, lightheadedness, nausea, numbness, palpitations, seizure, shortness of breath, tingling, vertigo, vomiting, weakness. Current symptoms: Currently, the patient is not experiencing any symptoms, the patient feels back to baseline. The patient has experienced similar episodes in the past, multiple times. 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 LMP N/A - Hysterectomy lp1 Historical: - Allergies: 23:10 Adhesives; lp1 23:10 Aspirin; lp1 23:10 Bactrim; lp1 23:10 Benadryl; lp1 23:10 cefixime; lp1 23:10 Cipro IV; lp1 23:10 Clindamycin; lp1 23:10 coconut oil; lp1 23:10 Detrol; lp1 23:10 Diltiazem; lp1 23:10 Doxycycline; lp1 23:10 FISH PRODUCT DERIVATIVES; lp1 23:10 GABAPENTIN; lp1 23:10 Hydrocodone-Acetaminophen; lp1 23:10 Iodine; lp1 23:10 ivabradine; lp1 23:10 Latex, Natural Rubber; lp1 23:10 Morphine; lp1 23:10 PENICILLINS; lp1 23:10 Seroquel; lp1 23:10 Sulfa (Sulfonamide Antibiotics); lp1 23:10 tramadol; lp1 - Home Meds: 23:10 albuterol sulfate 2.5 mg /3 mL (0.083 %) Inhl nebu 3 mL 3 times per day [Active]; lp1 apixaban 5 mg Oral tab 1 tab 2 times per day [Active]; Breo Ellipta inhalation [Active]; BuSpar Oral [Active]; carvedilol 25 mg Oral tab 1 tab 2 times per day [Active]; Crestor 5 mg Oral tab 1 tab once daily [Active]; digoxin 125 mcg (0.125 mg) Oral tab 1 tab once daily [Active]; Keppra 750 mg Oral tab 1 tab [Active]; Lasix 20 mg Oral tab 1 tab [Active]; Nexium 20 mg Oral cpDR 1 cap once daily [Active]; nitroglycerin 0.4 mg Oral [Active]; pregabalin 50 mg Oral cap 1 cap 3 times per day [Active]; Spiriva with HandiHaler inhalation [Active]; Ubrelvy 100 mg Oral tab 1 tab [Active]; venlafaxine 150 mg Oral cp24 1 cap once daily [Active]; Vraylar 4.5 mg Oral cap once daily [Active]; Xanax 0.25 mg Oral tab 1 tab [Active]; - PMHx: 23:10 Asthma; Atrial fibrillation; CVA; Depression; DVT; Hypertensive disorder; Migraine; lp1 Seizure; TIA; - PSHx: 23:10 Cholecystectomy; left shoulder; Ligation of fallopian tube; pace maker placement; right lp1 hand cyst removal; 03/19 03:54 hysterectomy; bb - Immunization history:: Adult Immunizations up to date, Client reports receiving the 2nd dose of the Covid vaccine. - Social history:: Smoking status: Patient/guardian denies using tobacco, the patient reports quitting approximately 18 years ago. ROS: 00:15 Constitutional: Negative for fever, chills, and weight loss, Eyes: Negative for injury, mh7 pain, redness, and discharge, ENT: Negative for injury, pain, and discharge, Cardiovascular: Negative for chest pain, palpitations, and edema, Respiratory: Negative for shortness of breath, cough, wheezing, and pleuritic chest pain, Abdomen/GI: Negative for abdominal pain, nausea, vomiting, diarrhea, and constipation, Back: Negative for injury and pain, : Negative for injury, bleeding, discharge, and swelling, MS/Extremity: Negative for injury and deformity, Skin: Negative for injury, rash, and discoloration, Neuro: Negative for headache, weakness, numbness, tingling, and seizure, Psych: Negative for depression, anxiety, suicide ideation, homicidal ideation, and hallucinations, Allergy/Immunology: Negative for hives, rash, and allergies, Endocrine: Negative for neck swelling, polydipsia, polyuria, polyphagia, and marked weight changes, Hematologic/Lymphatic: Negative for swollen nodes, abnormal bleeding, and unusual bruising. Exam: 00:15 Constitutional: This is a well developed, well nourished patient who is awake, alert, mh7 and in no acute distress. Head/Face: Normocephalic, atraumatic. Eyes: Pupils equal round and reactive to light, extra-ocular motions intact. Lids and lashes normal. Conjunctiva and sclera are non-icteric and not injected. Cornea within normal limits. Periorbital areas with no swelling, redness, or edema. ENT: Nares patent. No nasal discharge, no septal abnormalities noted. Tympanic membranes are normal and external auditory canals are clear. Oropharynx with no redness, swelling, or masses, exudates, or evidence of obstruction, uvula midline. Mucous membranes moist. 00:15 Chest/axilla: Normal chest wall appearance and motion. Nontender with no deformity. No lesions are appreciated. Cardiovascular: Regular rate and rhythm with a normal S1 and S2. No gallops, murmurs, or rubs. Normal PMI, no JVD. No pulse deficits. Respiratory: Lungs have equal breath sounds bilaterally, clear to auscultation and percussion. No rales, rhonchi or wheezes noted. No increased work of breathing, no retractions or nasal flaring. Abdomen/GI: Soft, non-tender, with normal bowel sounds. No distension or tympany. No guarding or rebound. No evidence of tenderness throughout. Back: No spinal tenderness. No costovertebral tenderness. Full range of motion. Skin: Warm, dry with normal turgor. Normal color with no rashes, no lesions, and no evidence of cellulitis. MS/ Extremity: Pulses equal, no cyanosis. Neurovascular intact. Full, normal range of motion. Neuro: Awake and alert, GCS 15, oriented to person, place, time, and situation. Cranial nerves II-XII grossly intact. Motor strength 5/5 in all extremities. Sensory grossly intact. Cerebellar exam normal. Normal gait. Psych: Awake, alert, with orientation to person, place and time. Behavior, mood, and affect are within normal limits. 00:15 Neck: External neck: tenderness, that is mild, of the left trapezius, lower cervical area and right trapezius. Vital Signs: 03/18 23:13 BP 116 / 83; Pulse 100; Resp 18; Temp 97.8(TE); Pulse Ox 100% on R/A; Weight 56.7 kg lp1 (R); Height 4 ft. 11 in. (149.86 cm); Pain 9/10; 03/19 01:00 BP 101 / 70; Pulse 85; Resp 16; Pulse Ox 97% on R/A; jb4 02:41 BP 127 / 87; Pulse 77; Resp 16; Pulse Ox 97% on R/A; jb4 03:45 BP 109 / 78 Supine; Pulse 85; bb 03:47 BP 129 / 92 Sitting; Pulse 90; bb 03:51 BP 123 / 94 Standing; Pulse 92; bb 03/18 23:13 Body Mass Index 25.25 (56.70 kg, 149.86 cm) lp1 MDM: 03:57 Differential Diagnosis: cardiac arrhythmia, drug effect, idiopathic syncope, pseudo mh7 seizure, seizure, vasovagal episode. Data reviewed: vital signs, nurses notes, old medical records, lab test result(s), cardiac enzymes, CBC, electrolytes, urinalysis, EKG, radiologic studies, CT scan, plain films. Data interpreted: Pulse oximetry: on room air is 97 %. Interpretation: normal. Counseling: I had a detailed discussion with the patient and/or guardian regarding: the historical points, exam findings, and any diagnostic results supporting the discharge/admit diagnosis, lab results, radiology results, to return to the emergency department if symptoms worsen or persist or if there are any questions or concerns that arise at home. Response to treatment: the patient's symptoms have resolved after treatment, the patient's blood pressure is in an acceptable range, mental status has returned to baseline, the patient no longer shows bradycardia, the patient is not short of breath, the patient is not tachycardic, the patient's pain is gone, the patient's temperature has normalized, the patient is now symptom free. 04:00 Patient medically screened. [facility] 04:01 Counseling: I had a detailed discussion with the patient and/or guardian regarding: the mh7 need for further work-up and treatment in the hospital. Refusal of service: The patient/guardian displays adequate decision making capability and despite a detailed discussion of alternatives, benefits, risks, and consequences refuses: Admission to the hospital for further work-up and treatment. 03/18 23:31 Order name: Basic Metabolic Panel; Complete Time: 03:06 [facility] 03/18 23:31 Order name: CBC with Diff; Complete Time: 00:49 [facility] 03/18 23:31 Order name: CT Head C Spine [facility] 03/18 23:31 Order name: Troponin HS; Complete Time: 03:06 [facility] 03/19 03:15 Order name: Chest Single View XRAY [facility] 03/18 23:31 Order name: EKG; Complete Time: 23:32 [facility] 03/18 23:31 Order name: Cardiac monitoring; Complete Time: 00:24 [facility] 03/18 23:31 Order name: EKG - Nurse/Tech; Complete Time: 00:24 [facility] 03/18 23:31 Order name: IV Saline Lock; Complete Time: 00:24 [facility] 03/18 23:31 Order name: Labs collected and sent; Complete Time: 00:24 [facility] 03/18 23:31 Order name: O2 Per Protocol; Complete Time: 00:02 [facility] 03/18 23:31 Order name: O2 Sat Monitoring; Complete Time: 00:02 [facility] 03/19 03:13 Order name: Orthostatics; Complete Time: 03:57 [facility] 03/19 03:15 Order name: Urine Dipstick-Ancillary (obtain specimen) [facility] Administered Medications: No medications were administered Disposition Summary: 03/19/22 04:00 Discharge Ordered Location: Home [facility] Problem: an acute exacerbation [facility] Symptoms: have improved [facility] Condition: Stable [facility] Diagnosis - Syncope 7 Followup: [facility] - With: Private Physician - When: 1 - 2 days - Reason: Worsening of condition, Recheck today's complaints, Continuance of care, Re-evaluation by your physician Followup: [facility] - With: Nadeem Rajan MD - When: 1 - 2 days - Reason: Worsening of condition, Recheck today's complaints Discharge Instructions: - Discharge Summary Sheet [facility] - Syncope, [id number] [facility] Forms: - Medication Reconciliation Form [facility] - Thank You Letter [facility] - Antibiotic Education [facility] - Prescription Opioid Use [facility] Signatures: Dispatcher [employer] EDDenisse Keen RN RN bb Mayi Rodriguez RN RN lp1 Davion Hernandez MD MD [facility] Corrections: (The following items were deleted from the chart) 03:54 03:53 Allergies: hysterectomy; sharonda mcdonough 03:57 03:15 Urine Test ordered. [facility] sharonda
[2022-03-19 04:40] VITALS: TEMP 97.8
[2022-03-19 04:42] VITALS: O2SAT 97
[2022-03-19 04:54] VITALS: BP 123/94
--- NOTE | 2022-03-19 16:23 | RAD REPORT ---
EXAM DESCRIPTION: CT - Head C Spine Mpr Wo Con - 03/19/2022 6:49 am CLINICAL HISTORY: Neck Pain. TECHNIQUE: Noncontrast CT through the head was performed. Axial, coronal, and sagittal reconstructio ns were created and sent to PACS. CT of the cervical spine was performed without contrast. Axial, coronal, and sagittal reconstructions were created and sent to PACS. These exams were performed according to our departmental dose-optimization program which includes use of Automated Exposure Control, adjustment of the mA and/or kV according to patient size and/or use o f iterative reconstruction technique. COMPARISON: CT head from November 26, 2021. FINDINGS: CT Head: The brain parenchyma appears unremarkable. There is no intra-axial or extra-axial bleed seen. There i s no mass or mass effect. The ventricles are normal in size, shape, and configuration. The orbital co ntents appear unremarkable. The visualized paranasal sinuses and mastoid air cells are clear. No acute fracture is identified. CT cervical spine: No acute osseous abnormality identified. Vertebral body height and alignment are maintained. No atlan todental interval widening. Atlantoaxial alignment is maintained. The facet joints are well aligned. The posterior elements are intact. The occipital condyles are well aligned with the C1 lateral masses . The transverse foramina are intact. No significant central canal or neuroforaminal narrowing throughout the cervical spine. Paraspinal soft tissues: No prevertebral soft tissue swelling. No evidence of epidural hematoma. No a cute findings in the demonstrated portions of the lung apices. IMPRESSION: 1. No acute intracranial abnormality identified. 2. No acute osseous abnormality identified in the cervical spine. No significant degenerative frey es are visualized. Electronically signed by: Katy Pedro MD 03/19/2022 12:58 AM CDT Due to temporary technical issues with the PACS/Fluency reporting system, reports are being signed by the in house radiologists without. review as a courtesy to insure prompt reporting. The interpreting radiologist is fully responsible for the content of the report.
--- NOTE | 2022-03-19 17:27 | EKG ---
Test Date: 2022-03-19 Test Time: 00:18:50 Car Installations Supervisor: GORGE MEASUREMENT RESULTS: Intervals: Rate: 89 VT: 160 QRSD: 90 QT: 370 QTc: 450 [place]: P: 62 VT: 160 QRS: 17 T: 30 INTERPRETIVE STATEMENTS: Normal sinus rhythm Normal ECG Compared to ECG 11/26/2021 21:47:00 Sinus tachycardia no longer present Electronically Signed On 03-19-22 17:27:03 CDT by Judson Payne
--- NOTE | 2022-03-21 13:17 | RAD REPORT ---
EXAM DESCRIPTION: RAD - Chest Single View - 03/19/2022 3:26 am CLINICAL HISTORY: 41 years, Female, syncope COMPARISON: 11/26/2021 FINDINGS: Single view of the chest was obtained portable. Prior films were compared. The lung volume is decreased. Again there is a dual-lead pacemaker via right subclavian. The cardiomediastinal liza houette demonstrate to be unremarkable. The heart is not enlarged. The thoracic aorta is unremarkable . Costophrenic angles are sharp. No areas of consolidation or masses are seen. The rest of the so ft tissue and bony structures demonstrate to be unremarkable. IMPRESSION: Decreased lung volume. Pacemaker in place. No focal areas of acute airspace disease. Electronically signed by: Edward Joya MD 03/19/2022 3:43 AM CDT Due to temporary technical issues with the PACS/Fluency reporting system, reports are being signed by the in house radiologist without review as a courtesy to ensure prompt reporting. The interpreting r adiologist is fully responsible for the content of the report.
== END 2022-03-19 04:20 | disposition home or self-care (01) ==
LOC: ER 22:34
DX: R55 Syncope and collapse (principal); I48.91 Unspecified atrial fibrillation; F32.A Depression, unspecified; I10 Essential (primary) hypertension; Z88.0 Allergy status to penicillin; Z88.1 Allergy status to other antibiotic agents; Z88.2 Allergy status to sulfonamides; Z88.5 Allergy status to narcotic agent; Z88.6 Allergy status to analgesic agent; Z88.8 Allergy status to other drugs, medicaments and biological substances; Z91.013 Allergy to seafood; Z91.048 Other nonmedicinal substance allergy status; Z86.718 Personal history of other venous thrombosis and embolism
CPT/HCPCS: 36415; 70450; 71045; 72125; 80048; 84484; 85025; 93005; 99284

== ENCOUNTER 2022-05-06 18:23 | Emergency (ER) | payer OTHER ==
--- OUTSIDE RECORDS SUMMARY | 2022-05-06 18:31 | XMS REPORT | Continuity of Care Document ---
:1980 Author Organization [facility] t Address [address] [place] [address] Support Name Relationship Address Phone LINUS RIVERA [address] [phone] [place] [address] JET MARTY P [address] [facility] 3 [phone] [place] [address] LINUS RIVERA Unavailable [phone] Isatu Rivera Mother [address] [place] [address] JetAngeln Child Unavailable Marty Bob Significant Other [address] [place] [address] Marty Bob Significant Other [address] [place] [address] KIMBERLEE LARSEN, AUREA Waters Emergency Provider [address] [facility] [id number] [place] [address] CAROLINE LARSEN, SILVERIO Primary Care Physician [address] [facility] [address] [place] [address] BRENDAN LINDQUIST MD Emergency Provider [address] [facility] [phone] [place] [address] MD SILVERIO VELAZQUEZ Primary Care Physician [address] [facility] [place] [address] MD DARCIE KUMARI Admitting Provider [address] [place] [address] MD BAILEY HART Emergency Provider [address] [phone] [place] [address] Korin Chaudhary Spouse Unavailable Elie Bauer Unavailable / [phone] MARTY CHAUDHARY Unavailable [address] [facility] [place] [address] MARTY CHAUDHARY SRI Significant [address] Unavailable [place] [id number] Care Team Providers Name Role Phone SILVERIO VELAZQUEZ MIMA Primary Care Physician Unavailable WILMER VERA Attending Clinician Unavailable Linus Boone Attending Clinician Unavailable Tucker Guy DO Attending Clinician FLOR Attending Clinician Unavailable Doctor Unassigned, [place]on Vale Attending Clinician Unavailable Ann Salcido MA Attending Clinician Unavailable Antonio LARSEN, Hector Ochoa Attending Clinician Veda Bolanos MD Attending Clinician Matt Berkowitz MD Attending Clinician Wilmer Vera MD Attending Clinician Unavailable JOSE GALVEZ Attending Clinician Unavailable LYLY SUE Attending Clinician Unavailable WILMER VERA Admitting Clinician Unavailable FLOR Admitting Clinician Unavailable MATT BERKOWITZ Admitting Clinician Unavailable JOSE GALVEZ Admitting Clinician Unavailable LYLY SUE Admitting Clinician Unavailable Payers Payer Name Policy Type Policy Number Effective Expiration Source Date Date GENERIC MEDICAID HMO [id number] 2011 00:00:00 [facility] [id number] 2011 Met panda STAR+PLUS 00:00:00 Hospital [id number] 2010- PresentO SOLOROI [id number] [address] [facility] MEDICAIDMEDICAID 00:00:00 Medical [id number] 018-Present Problems Condition Condition Condition Status Onset Resolution Last Treating Co mments Source Name Details Category Date Date Treatment Clinician Date Left-sided Left-sided Disease Active U nivers weakness weakness 7-23 ity of 00:00: [place] 00 Medical Branch History of History of Disease Active U nivers DVT (deep DVT (deep 4-11 ity of vein vein 00:00: [place] thrombosis thrombosis 00 Me dical ) ) Branch Palpitatio Palpitatio Disease Active U nivers ns ns 4-11 ity of 00:00: [place] [facility] Elevated Elevated Disease Active Unive rs d-dimer d-dimer 7- ity of 00:00: [place] [facility] Left-sided Left-sided Disease Active [facility] weakness weakness 5- [facility] 00:[facility]: [facility] 00 Center Received Received Disease Active [facility] tissue tissue 5- [facility] plasminoge plasminoge 00:00: Me dical n n 00 Center activator activator (t-PA) (t-PA) less than less than 24 hours 24 hours prior to prior to arrival arrival Acute Acute Disease Active [facility] ischemic ischemic 5-20 [facility] stroke stroke 00:00: [facility] 00 Clifford Atypical Atypical Disease Active Unive rs chest pain chest pain 4-20 it y of 00:00: [place] [facility] Chest pain Chest pain Disease Active [facility] in adult in adult -20 [facility] 00:00: [facility] 00 Clifford Inappropri Inappropri Disease Active 2019- U nivers [...] Active 2019- Univers 2-04 ity of 00:00: [place] 00 Medical Branch PVT PVT Disease Active 2019- Univers (paroxysma (paroxysma 2-04 it y of l l 00:00: [place] ventricula ventricula 00 Ne dical r r Branch tachycardi tachycardi a) a) Digoxin Digoxin Disease Active 2019- Univers toxicity toxicity 2-04 ity of 00:00: [place] [facility] Atrial Atrial Disease Active 2019- Univers fibrillati fibrillati 2-04 it y of on on 00:00: [place] [facility] Seizure Seizure Disease Active 2018-09 Univers disorder disorder 2-01 ity of 00:00: [place] [facility] AN AN Disease Active 2019-1 Univers (dyspnea (dyspnea 2-01 ity of on on 00:00: [place] exertion) exertion) 00 [facility] Mitral Mitral Disease Active Univers valve valve 8 ity of regurgitat regurgitat [place] 00 Medical [place] Excessive Excessive Disease Active Uni vers anticoagul anticoagul 8 it y of ation ation 00:00: [place] 00 Medical Branch Deep vein Deep vein Disease Active Uni vers thrombosis thrombosis 04-29 it y of of lower of lower 00:00: [place] extremity extremity 00 [facility] Branch Anxiety Anxiety Disease Active Univers disorder disorder 04-29 ity of 00:00: [place] 00 Medical Branch Asthma Asthma Disease Active Univers 8 ity of 00:00: [place] 00 Medical Branch Paresthesi Paresthesi Disease Active 2017-[address] a of left a of left 10-17 [facility] arm and arm and 00:00: Medical leg leg 00 Center Dysphagia Dysphagia Disease Active 2017-09 Uni vers 10-03 ity of 00:00: [place] 00 Medical Branch Iron Iron Disease Active 2017-09 Overview: Univer s deficiency deficiency 0-19 Formattin ity of anemia, anemia, 00:00: g of this [place] unspecifie unspecifie 00 note Me dical d iron d iron might be Branch deficiency deficiency different anemia anemia from the type type original. Added automatic ally from request for surgery [id number] Abdominal Abdominal Disease Active 2017-09 Overview: Univers pain, pain, 0-19 Formattin ity of unspecifie unspecifie 00:00: g of this [place] d d 00 note Medical abdominal abdominal might be Br anch location location different from the original. Added automatic ally from request for surgery [id number] Nausea and Nausea and Disease Active 2017-09 Overview : Univers vomiting, vomiting, 0-19 Formattin i ty of intractabi intractabi 00:00: g of this [place] lity of lity of 00 note Medical vomiting vomiting might be Bran ch not not different specified, specified, from the unspecifie unspecifie original. d vomiting d vomiting Added type type automatic ally from request for surgery [id number] Non-cardia Non-cardia Disease Active U nivers c chest c chest 8 ity of pain pain 00:00: [place] 00 Medical Branch Essential Essential Disease Active Uni vers hypertensi hypertensi 8-03 it y of on on 00:00: [place] 00 Medical Branch Pacemaker Pacemaker Disease Active Uni vers 04-27 ity of 00:00: [place] [facility] PAF PAF Disease Active Univers (paroxysma (paroxysma 04-27 it y of l atrial l atrial 00:00: [place] fibrillati fibrillati 00 Me dical on) on) Branch History of History of Disease Active 2016-09 U nivers cardiac cardiac 1- ity of pacemaker pacemaker 00:00: [place] [...] nivers ure ure 7-22 ity of 00:00: [place] [facility] Left sided Left sided Disease Active U nivers numbness numbness 6-28 ity of 00:00: [place] 00 Medical Branch Prediabete Prediabete Disease Active 2012-09 U nivers s s 2-31 ity of 00:00: [place] [facility] Loss of Loss of Disease Active 2012-09 Univers weight weight 2-31 ity of 00:00: [place] 00 Medical Branch Hypothyroi Hypothyroi Disease Active 2012-09 Overview : Univers dism dism 2-31 Formattin ity of 00:00: g of this [place] note Medical might be Branch different from the original. ICD10 Diagnosis Term Senior Interaction Designer Utility Hypoglycem Hypoglycem Disease Active 2012-09 Overview : Univers ia ia 10-21 Formattin ity of 00:00: g of this [place] note Medical might be Branch different from the original. ICD10 Diagnosis Term Senior Interaction Designer Utility Cerebrovas Cerebrovas Disease Resolve 2021-02-12 2021-02-[address] cular cular d 00:00:00 11:42:08 [facility] accident accident Medica l (CVA), (CVA), Center unspecifie unspecifie d d mechanism mechanism Allergies, Adverse Reactions, Alerts Allergy Allergy Status Severity Reaction(s) Onset Inactive Treating Comm ents Source Name Type Date Date Clinician Hydrocod Propensi Active Hives 2020-0 Univer s one ty to 9-10 ity of adverse 00:00: [place] reaction 00 Medical s Branch Penicill DA Active SV 2020-0 [facility] ins -04 [place] 00:[facility]: d 00 [facility] Sulfa DA Active MO 2020-0 [facility] (Sulfona - [place] mide 00:00: d Antibiot 00 Medical ics) Center Fish FA Active SV 2020-0 [facility] Containi - [place] ng 00:00: d Products 00 Medical Center iodine DA Active MO 1-0 [facility] -04 [place] 00:00: d 00 Medical Center morphine DA Active SV 2020-0 [facility] -04 [place] 00:00: d 00 Medical Center aspirin DA Active SV 2020-0 [facility] -04 [place] 00:00: d 00 [facility] Center cephalex DA Active SV 2020-0 [facility] in - [place] 00:00: d 00 Medical Center cefixime DA Active MO 2020-0 [facility] -04 [place] 00:00: d 00 [facility] Center doxycycl DA Active SV 2020-0 [facility] ine - [place] 00:00: d 00 [facility] Center clindamy DA Active MO 2020-0 [facility] stephan -04 [place] 00:00: d 00 [facility] Center sulfamet DA Active MO 2020-0 [facility] hoxazole -04 [place] 00:00: d 00 [facility] Center trimetho DA Active MO 2020-0 [facility] [...] diphenhy DA Active SV 2020-0 [facility] dramine 1- [place] 00:00: d 00 [facility] Center topirama DA Active SV 202-0 [facility] te 1-04 [place] 00:00: d 00 [...] Active SV ANAPHYLAXIS 2020-0 [facility] Containi SHOCK 09-28 [place] ng 00:00: d Products 00 Medical [...] DA Active MO RASH 2020-0 [facility] stephan -04 [place] 00:00: d 00 Medical Center sulfamet DA Active MO RASH 2020-0 [facility] hoxazole -04 [place] 00:00: d 00 Medical Center trimetho DA Active MO RASH 2020-0 [facility] prim -04 [place] 00:00: d 00 Medical Center ciproflo DA Active SV HIVES 2020-0 [facility] xacin -04 [place] 00:00: d 00 Medical Center adhesive DA Active SV BLISTERS 2020-0 [facility] tape 1-04 [place] 00:00: d 00 Medical Center tramadol DA Active SV HIVES 2020- [facility] 1-04 [place] 00:00: d 00 Medical Center gabapent DA Active SV RASH 2020- [facility] in 1-04 [place] 00:00: d 00 Medical Center diltiaze DA Active SV SHORTNESS OF 2020-0 HC A m BREATH 1-04 [place] 00:00: d 00 [facility] diphenhy DA Active SV RASH [facility] dramine -04 [place] 00:00: d 00 Medical Center topirama DA Active SV HIVES/MEMORY 0 HC A te LOSS -04 [place] 00:00: d 00 [facility] levoflox DA Active SV HIVES [facility] acin 1-04 [place] 00:00: d 00 [facility] quetiapi DA Active MO RASH [facility] ne 1-04 [place] 00:00: d 00 [facility] tolterod DA Active MO RASH [facility] ine 1-04 [place] 00:00: d 00 [facility] latex DA Active SV BLISTERS 2020- [facility] 1-04 [place] 00:00: d 00 [facility] ivabradi DA Active MO RASH 2020-0 [facility] ne 1-04 [place] 00:00: d 00 [facility] coconut FA Active MO RASH 2020- [facility] 1-04 [place] 00:00: d 00 [facility] Topirama Propensi Active Anaphylaxis 2019-0 M ethodi te ty to 9-16 st adverse 00:00: Hospita reaction 00 l s to drug Diltiaze Propensi Active Shortness of 2018-09 Univers [...] reaction 00 l s to drug Cephalex Drug Active Anaphylaxis 2019-0 Uni vers in Allergy 04-29 ity of 00:00: [place] 00 Medical Branch Levoflox Drug Active Anaphylaxis 2018-0 Uni vers acin Allergy 04-29 ity of 00:00: [place] 00 Medical [...] Hospita reaction 00 l s to drug LATEX Allergy Active Low Rash 2017-09 [facility] 10-17 00:00: 00 SULFA Allergy Active Low Rash 2017-09 [facility] (SULFONA 10-17 MIDE 00:00: ANTIBIOT 00 ICS) CEFIXIME Allergy Active Low Rash 2017-09 [facility] 10-17 00:00: 00 TRAMADOL Allergy Active Low Rash 2017-09 [facility] 10-17 00:00: 00 SULFAMET Allergy Active High Anaphylaxis 2017-09 [facility] HOXAZOLE 10-17 -TRIMETH 00:00: OPRIM 00 [...] Active 2017-09 [facility] XACIN 10-17 00:00: 00 Adhesive Propensi Active Rash 2017-09 Can use [facility] t Tape ty to 10-17 papertape [facility] adverse 00:00: . Medical reaction 00 Center s Sulfamet Propensi Active Anaphylaxis 2017-[address] hoxazole ty to 10-17 [facility] -Trimeth adverse 00:00: Medical oprim reaction 00 [facility] s Diphenhy Propensi Active Nausea And 2017-[address] dramine ty to Vomiting 10-17 [facility] Hcl adverse 00:00: Medical reaction 00 [facility] s Ciproflo Propensi Active 2017-[address] xacin ty to 10-17 aches. [facility] adverse 00:00: Medical reaction 00 [facility] s Clindamy Propensi Active Rash 2017-[address] stephan ty to 10-17 [facility] adverse 00:00: Medical reaction 00 [facility] s Tolterod Propensi Active Rash 2017-[address] ine ty to 10-17 [facility] adverse 00:00: Medical reaction 00 [facility] s Gabapent Propensi Active Shortness Of 2017-[address] in ty to Breath, Rash 10-17 Luke s adverse 00:00: Medical reaction 00 [facility] s Iodine Propensi Active Rash 2017-[address] And ty to 10-17 [facility] Iodide adverse 00:00: Medical Containi reaction 00 Clifford ng s Products Latex Propensi Active Rash 2017-[address] ty to 10-17 [facility] adverse 00:00: Medical reaction 00 [facility] s Morphine Propensi Active Anaphylaxis 2017-[address] ty to 10-17 [facility] adverse 00:00: Medical reaction 00 [facility] s Penicill Propensi Active Anaphylaxis 2017-[address] ins ty to 10-17 [facility] adverse 00:00: Medical reaction 00 [facility] s Quetiapi Propensi Active 2017-[address] ne ty to 10-17 [facility] adverse 00:00: Medical reaction 00 [facility] s Sulfa Propensi Active Rash 2017-[address] (Sulfona ty to 10-17 [facility] mide adverse 00:00: Medical Antibiot reaction 00 [facility]) s Cefixime Propensi Active Rash 2017-[address] ty to 10-17 [facility] adverse 00:00: Medical reaction 00 [facility] s Tramadol Propensi Active Rash 2017-[address] ty to 10-17 [facility] adverse 00:00: Medical reaction 00 [facility] s CODEINE Allergy Active 2017-09 [facility] 10-17 00:00: 00 Cefixime Propensi Active Rash 2017-09 Method i ty to 10-17 st adverse 00:00: Hospita reaction 00 l s to drug Sulfamet Propensi Active Rash 2017-09 Method i hoxazole ty to 10-17 st -Trimeth adverse 00:00: Hospita oprim reaction 00 l s to drug QUETIAPI Allergy Active 2017-09 [facility] NE 10-17 00:00: 00 ADHESIVE Allergy Active Low Rash 2017-09 [facility] TAPE 10-17 00:00: 00 CLINDAMY Allergy Active Low Rash 2017-09 [facility] STEPHAN 10-17 00:00: 00 TOLTEROD Allergy Active Low Rash 2017-09 [facility] INE 10-17 00:00: 00 Coconut Propensi Active Rash 2017-09 Univers ty to 1-10 ity of adverse 00:00: [place] reaction Medical s Branch Coconut Propensi Active Rash [...] Medical s Branch Iodine Propensi Active Rash Univers ty to 4-12 ity of adverse 00:00: [place] reaction 00 Medical s Branch Clindamy Propensi Active Rash Method i tsephan ty to 4-12 st adverse 00:00: Hospita reaction 00 l s to drug Diphenhy Propensi Active Other (See Me thodi dramine ty to Comments) 4-12 st adverse 00:00: Hospita reaction 00 l s to drug Gabapent Propensi Active Shortness Of Methodi in ty to Breath 4-12 st adverse 00:00: Hospita reaction 00 l s to drug Iodine Propensi Active Rash Methodi And ty to 4-12 st Iodide adverse 00:00: Hospita Containi reaction 00 l ng s to Products drug Morphine Propensi Active Anaphylaxis 2016- U nivers ty to 0-05 ity of [...] l s to drug Ciproflo Propensi Active Shortness of Muscle Univers xacin ty to Breath 04-20 aches ity of adverse 00:00: [place] [...] Anaphylaxis 2016-0 U nivers Aspirin ty to 4-26 ity of adverse 00:00: [place] reaction 00 Medical s Branch Penicill Propensi Active Anaphylaxis 2016-0 U nivers in ty to 4-26 ity of adverse 00:00: [place] reaction 00 Medical s Branch Ciproflo Propensi Active Other (See Muscle Me thodi xacin ty to Comments) 5-[address] adverse 00:00: le aches. Hospit a reaction 00 Muscle l s to aches drug Aspirin Propensi Active Anaphylaxis 0 Un austyn ty to 4-08 ity of adverse 00:00: [place] reaction 00 [...] Stop Date Quantity Comments Source History SDOH [facility] al History SDOH [facility] Exposure to 2022-04-26 2022-05-06 Not sure University SARS-CoV-2 (event) 00:00:00 13:13:00 [facility] Alcohol intake 2022-05-06 2022-05-06 Current University of 00:00:00 00:00:00 non-drinker of [facility] alcohol Branch (finding) Cigarettes smoked 2022-04-05 2022-04-05 Univers ity of current (pack per 00:00:00 00:00:00 [facility] ) - Reported Branch Cigarette 2022-04-05 2022-04-05 University of pack-years 00:00:00 00:00:00 [facility] Tobacco use and 2022-04-05 2022-04-05 Smokeless Universit y of exposure 00:00:00 00:00:00 tobacco non-user [facility] dical Branch Education 2021-03-25 2021-03-25 12 University 00:00:00 00:00:00 [place] [facility] History SDOH 2019-10-29 2019-10-29 5 University o f Financial 00:00:00 00:00:00 [place] [facility] History SDIL Food 2019-10-29 2019-10-29 1 Univers ity of Worry 00:00:00 00:00:00 [place] [facility] History SDIL Food 2019-10-29 2019-10-29 1 Univers ity of Scarcity 00:00:00 00:00:00 [place] [facility] History [facility] 2019-10-29 2019-10-29 2 University o f Transport Med 00:00:00 00:00:00 [place] Medic al Branch History [facility] 2019-10-29 2019-10-29 2 University o f Transport Non-Med 00:00:00 00:00:00 [place] M edical Branch History [facility] 2018-09-05 2018-09-05 1 [facility] Frequency 00:00:00 00:00:00 Hospita l History of tobacco 2001-05-09 Passive smoker Un iversity of use 00:00:00 [facility] Sex [birth year] At [birth year] Universit y of 00:00:00 00:00:00 [facility] Smoking Status Start Date Stop Date Source Ex-smoker 2022-04-05 00:00:00 2022-04-05 00:00:00 [facility] of [facility] Medications Ordered Filled Start Stop Current Ordering Indication Dosage Frequency Signature Comments Components Source Medication Medication Date Date Medication? Clinician (SIG) Name Name ALPRAZolam Yes [id number] .25mg Take 0.25 Univers 0.25 mg 8-12 mg by ity of tablet 13:33: mouth at [place] [address] bedtime as Medical needed. Branch pregabalin Yes 50mg Take 50 mg U nivers 50 mg 8-12 by mouth ity of capsule 13:33: at [place] [address] bedtime. Medical Branch tiotropium Yes 1{puff} Inhale 1 Univers bromide 8-12 Puff ity of (SPIRIVA 00:00: daily. [place] RESPIMAT) 00 Medical 2.5 Branch mcg/actuati on Mist esomeprazol Yes 20mg Take 20 mg Univers e 20 mg 7-25 by mouth 2 ity of capsule 18:00: (two) [place] 13 times Medical daily Branch before breakfast and dinner. roflumilast Yes [id number] 250ug Take 250 Univers (DALIRESP) 7-25 mcg by ity of 250 mcg Tab 00:00: mouth [place] 00 daily. Medical Branch carvediloL Yes [id number] 12.5mg Take 1 Univers 12.5 mg 7-25 tablet by ity of tablet 00:00: mouth in [place] 00 the Medical morning Branch and 1 tablet in the evening. Take with meals. levETIRAcet Yes [id number] 1250mg Take 5 Univers am 250 mg 7-25 tablets by ity of tablet 00:00: mouth in [place] 00 the Medical morning Branch and 5 tablets in the evening. atorvastati Yes [id number] 40mg Take 1 Univers n 40 mg 7-25 tablet by ity of tablet 00:00: mouth at [place] [address] bedtime. Medical Branch ubrogepant Yes [id number] 100mg Take 100 Univers (UBRELVY) 6-21 mg by ity of 100 mg Tab 00:00: mouth as [place] as 00 needed Medical (migraine) Branch . Take at onset of migraine, repeat x1 in 2h if headache remains fluticasone Yes [id number] 1{puff} Inhale 1 Univers furoate-natan 6-03 Puff ity of anteroL 00:00: daily. [place] (BREO 00 Medical ELLIPTA) Branch 200-25 mcg/dose DsDv DULoxetine 0 Yes 30mg Take 1 Unive rs 30 mg 6-03 capsule by ity of capsule 00:00: mouth [place] 00 daily. Medical Branch traZODone 0 Yes 50mg Take 1-2 Univ ers 50 mg 6-03 tablets by ity of tablet 00:00: mouth at [place] 00 bedtime as Medical needed for Branch Insomnia. BENZONATATE Yes [id number] TAKE 1 Univers 100 mg 3-04 CAPSULE BY ity of capsule 00:00: MOUTH 00 THREE Medical TIMES Branch DAILY NEEDED FOR COUGH digoxin 125 2020-09 Yes 125ug Take 1 Uni vers mcg (0.125 2-07 tablet by ity of mg) tablet 00:00: mouth 00 daily. Medical Branch furosemide 2020-09 Yes 20mg Take 1 Unive rs 20 mg 2-07 tablet by ity of tablet 00:00: mouth as [place] 00 needed. Medical Branch albuterol 2020-09 Yes [id number] 2{puff} Inhale 2 Univers 90 1-05 Puffs ity of mcg/actuati 00:00: every 6 [place] as on inhaler 00 (six) Medical hours as Branch needed for Wheezing or Shortness of Breath. apixaban Yes 5mg Take 1 Univers (ELIQUIS) 5 7-14 tablet by ity of mg tablet 00:00: mouth 2 00 (two) Medical times Branch daily. Indication [...] blister with device powder for inhalation fluticasone 202- No 1{puff} Q.5D Inhale 1 Methodi propionate [...] mouth Hospita tablet 44 daily. l ALPRAZolam 2020-0 Yes .25mg QD Take 0.25 M ethodi [...] day. l ophthalmic emulsion albuterol Yes 1{ampul Q.[id number] Take 1 Methodi (ACCUNEB) 6-24 e} [id number] ampule by st 1.25 mg/3 22:52: 3D nebulizati Ho spita mL 44 on 3 l nebulizer (three) solution times a day. esomeprazol 2020- No 20mg QD Take 20 mg Methodi e (NexIUM) -18 03- by mouth st 20 MG 20:19: 00:00 daily Hospita capsule 48 :00 before l breakfast. ARIPiprazol 2020- No 5mg QD Take 5 mg Methodi e (ABILIFY) -18 03- by mouth st 5 MG tablet 01:39: [...] methylPREDN 2020- No follow Met hodi ISolone 03-[address] (Medrol, 00:00: 04:59 directions Ho [...] mouth Medic al hr capsule 46 daily. [facility] apixaban Yes 5mg QD Take 5 mg [...] Luke s MG capsule 14:04: nightly . Ne dical 46 Center esomeprazol Yes 40mg QD [...] Cap 14:04: mouth Medica l 46 nightly. [facility] albuterol 2021- No 1{ampul Q.5D Take 1 [...] daily as M edical 31 :00 needed. [facility] ARIPiprazol 2020- No 5mg QD Take [address] e (ABILIFY) 02-10 by mouth Berta es 5 MG tablet 22:18: 00:00 nightly. M edical 03 :00 Center ARIPiprazol No 10mg QD Take [address] e (ABILIFY) 02-10 by mouth Berta es 10 MG 22:17: 00:00 daily. Medical disintegrat 48 :00 Center ing tablet Immunizations Ordered Filled Immunization Date Status Comments [facility] e Immunization Name Name SARS-COV-2 COVID-19 2021-02-08 Completed Unive rsity of MODERNA VACCINE 00:00:00 [facility] SARS-COV-2 COVID-19 2021-01-11 Completed Unive rsity of MODERNA VACCINE 00:00:00 [facility] Influenza Virus 2020-08-13 Completed Universit y of Vaccine 00:00:00 [facility] Pneumococcal 2017-06-23 Completed University o f Polysaccharide, 00:00:00 [facility] PPSV23 (PNEUMOVAX) Branch Influenza High Dose 2015-11-16 Completed Unive rsity of 00:00:00 [facility] Pneumococcal 2015-11-16 Completed University o f Polysaccharide, 00:00:00 [facility] PPSV23 (PNEUMOVAX) Branch Vital Signs Vital Name Observation Time Observation Value Comments Source HEIGHT 2021-02-10 21:00:00 149.9 cm WEIGHT 2021-02-10 21:00:00 59.467 kg HEIGHT 2021-02-10 21:00:00 149.9 cm WEIGHT 2021-02-10 21:00:00 59.467 kg Oxygen saturation in 2021-03-18 20:00:00 97 /min [facility] Arterial blood by Pulse oximetry Systolic blood 2021-03-18 17:24:48 132 mm[Hg] [facility] pressure Diastolic blood 2021-03-18 17:24:48 72 mm[Hg] [facility] pressure Heart rate 2021-03-18 17:24:48 96 /min [facility] Body temperature 2021-03-18 17:24:48 37 Ayaka [facility] Respiratory rate 2021-03-18 17:24:48 14 /min [facility] Body height 2021-03-18 01:37:00 149.9 cm [facility] Body weight 2021-03-18 00:09:00 58.968 kg [facility] BMI 2021-03-18 00:09:00 26.26 kg/m2 [facility] Systolic blood 2021-02-12 12:00:00 101 mm[Hg] [facility] Diastolic blood 2021-02-12 12:00:00 72 mm[Hg] [facility] Heart rate 2021-02-12 12:00:00 93 /min [facility] Respiratory rate 2021-02-12 12:00:00 18 /min [facility] Oxygen saturation in 2021-02-12 12:00:00 96 /min [facility] Arterial blood by Medical Ce nter Pulse oximetry Body temperature 2021-02-12 11:00:00 37.56 [facility] Body height 2021-02-11 10:15:00 149.9 cm [facility] Body weight 2021-02-11 10:15:00 59.5 kg [facility] BMI 2021-02-11 10:15:00 26.48 kg/m2 [facility] Procedures Procedure Date / Time Performing Clinician Source Performed POC GLUCOSE 2021-03-18 17:31:00 Matt Berkowitz Ho spital ECG 12-LEAD 2021-03-18 17:28[facility]-03-18 16:41[facility]00 [facility] T[facility] COMPLETE, WO 2021-03-18 14:19:12 [facility] CONTRAST, W DOPPLER ([id number]) POC GLUCOSE 2021-03-18 13:14[facility] 2021-03-18 10:00:00 [facility] W/AUTO DIFF COMPREHENSIVE METABOLIC 2021-03-18 10:00:00 Lae, [facility] PANEL MAGNESIUM LEVEL 2021-03-18 10:00:00 Lae, [facility] PHOSPHORUS LEVEL 2021-03-18 10:00:00 [facility] LIPID PANEL 2021-03-18 10:00:00 Laeeq, [facility] HEMOGLOBIN A1C 2021-03-18 10:00:00 Laeeq, [facility] ESTIMATED GFR 2021-03-18 10:00:00 Laeeq, [facility] URINE CULTURE 2021-03-18 06:12:00 Laeeq, [facility] LEGIONELLA URINARY 2021-03-18 05:36:00 Laeeq, [facility] ANTIGEN STREPTOCOCCUS PNEUMONIAE 2021-03-18 05:36:00 Lae, [facility] URINARY ANTIGEN URINALYSIS SCREEN AND 2021-03-18 05:36:00 Laeeq, [facility] MICROSCOPY, WITH REFLEX TO CULTURE BLOOD CULTURE, AEROBIC & 2021-03-18 04:35:00 Laeeq, [facility] ANAEROBIC BLOOD CULTURE, AEROBIC & 2021-03-18 04:25:00 Laeeq, [facility] ANAEROBIC DIGOXIN LEVEL 2021-03-18 04:24:00 Lae, [facility] TROPONIN 2021-03-18 04:24:00 Hector Alvarez Mariia [facility] LACTIC ACID LEVEL, SEPSIS 2021-03-18 04:24:00 Laeeq, [facility] - NOW AND REPEAT 2X EVERY 3 HOURS POC GLUCOSE 2021-03-18 01:38:00 Lae, [facility] ARTERIAL BLOOD GAS 2021-03-18 01:10:00 Laeeq, [facility] US DUPLEX VENOUS LOWER 2021-03-18 01:00:06 Lae, [facility] EXTREMITY BILATERAL LACTIC ACID LEVEL, SEPSIS 2021-03-17 23:47:00 Laeeq, [facility] - NOW AND REPEAT 2X EVERY 3 HOURS TROPONIN 2021-03-17 23:47:00 [facility] XR CHEST 1 VW PORTABLE 2021-03-17 21:20:18 EnoreeHector [facility] HC COMPLETE BLD COUNT 2021-03-17 21:05:00 [facility] W/AUTO DIFF LACTIC ACID LEVEL, SEPSIS 2021-03-17 21:05:00 [facility] - NOW AND REPEAT 2X EVERY 3 HOURS COMPREHENSIVE METABOLIC 2021-03-17 21:05:00 [facility] PANEL TROPONIN 2021-03-17 21:05:00 [facility] B NATRIURETIC PEPTIDE 2021-03-17 21:05:00 [facility] D-DIMER 2021-03-17 21:05:00 [facility] ESTIMATED GFR 2021-03-17 21:05:00 [facility] ECG ED PRELIMINARY 2021-03-17 20:36:46 [facility] INTERPRETATION ECG 12-LEAD 2021-03-17 20:19:38 [facility] BASIC METABOLIC PANEL (7) 2021-02-12 05:34:00 [facility] MAGNESIUM 2021-02-12 05:34:[address] [facility] PHOSPHORUS 2021-02-12 05:34:00 Charlotte Alison [facility] CBC W/PLT COUNT & AUTO 2021-02-12 04:48:00 Alison Prado I [facility] MR BRAIN WITHOUT IV 2021-02-11 16:08:00 [facility] 2021-02-11 16:07:[address] [facility] MRA NECK WITHOUT IV 2021-02-11 16:07:[address] [facility] RAPID DRUG SCREEN, URINE 2021-02-11 03:05:00 Johan [facility] URINALYSIS WITH 2021-02-11 03:05:00 [facility] INDICATED [facility] URINALYSIS MICROSCOPIC 2021-02-11 03:05:00 Alison Prado [facility] HOMOCYSTEINE 2021-02-11 02:46:00 [facility] 2021-02-11 02:46:00 [facility] TSH/FREE T4 IF INDICATED 2021-02-11 02:46:00 [facility] VITAMIN B12 AND FOLATE 2021-02-11 02:46:00 JohanAlison [facility] CBC W/PLT COUNT & AUTO 2021-02-11 02:46:00 Autumn Pradoutha [facility] BASIC METABOLIC PANEL (7) 2021-02-11 02:46:00 Johan [facility] MAGNESIUM 2021-02-11 02:46:[address] [facility] PHOSPHORUS 2021-02-11 02:46:00 [facility] C-REACTIVE PROTEIN 2021-02-11 02:46:00 [facility] DIGOXIN LEVEL 2021-02-11 02:46:00 [facility] XR CHEST 1 VIEW PORTABLE 2021-02-10 22:20:00 [facility] / BEDSIDE [facility] POCT-GLUCOSE METER 2021-02-10 21:28:00 Wilmer Vera [facility] LIPID PANEL 2021-02-10 21:22:00 [facility] CREATINE KINASE (CK) 2021-02-10 21:21:00 [facility] HEMOGLOBIN A1C 2021-02-10 21:21:00 [facility] CBC W/PLT COUNT & AUTO 2021-02-10 21:21:[address] [facility] COMPREHENSIVE METABOLIC 2021-02-10 21:21:00 Alison Prado [facility] PROTHROMBIN TIME/INR 2021-02-10 21:21:00 [facility] APTT 2021-02-10 21:21:00 [facility]NESIUM 2021-02-10 21:21:[address] [facility] PHOSPHORUS 2021-02-10 21:21:00 [facility] HIGH SENSITIVITY TROPONIN 2021-02-10 21:21:00 [facility] I [facility] B-TYPE NATRIURETIC FACTOR 2021-02-10 21:21:00 [facility] LACTIC ACID, VENOUS 2021-02-10 21:21:00 Charlotte Alison [facility] ARRYTHMIA IMPLANT REPORT 2021-02-10 00:00:00 Provider, Mino [facility] - SCAN Scanning [facility] Plan of Care Planned Activity Planned Date Details Comments Source Future Scheduled 2021-05-[address] [facility] Test 00:00:00 (#1) [code = [facility] INFLUENZA VACCINE (#1)] Future Scheduled 2020-09-[address] [facility] Test 00:00:00 (12+) [code = [facility] DEPRESSION SCREENING (12+)] Future Scheduled [address] [facility] 00:[facility]:00 malignant neoplasm Medical C enter of cervix (procedure) [code = 767305986] Future Scheduled 2000 DTAP/TDAP/TD [facility] 00:[facility]:00 VACCINES (1 - Tdap) [facility] [code = DTAP/TDAP/TD VACCINES (1 - Tdap)] Future Scheduled [address] [facility] Test 00:00:00 SCREENING [code = Medical nter HEPATITIS C SCREENING] Future Scheduled Screening for [facility] Test malignant neoplasm of cervix (procedure) [code = 142484059] Future Scheduled [facility]FLUENZA VACCINE [facility] [code = INFLUENZA VACCINE] Encounters Start End Encounter Admission Attending Care Care Encounter Source Date/Time Date/Time Type Type Clinicians Facility Department ID 2021-02-10 Inpatient ER BERSHAD, [facility] Neurology [id number] [facility] 20:21:00 WILMER 2020-09-29 Inpatient Mely, [facility] [id number] [facility] 10:15:00 Linus [id number] [facility] 2020-09-28 Inpatient EL Mely, [facility]O [id number] [facility] 12:00:00 Linus [id number] [facility] 2022-05-06 2022-05-06 Telephone Malena [facility] [id number] [facility] 00:00:00 00:00:00 Tucker ONTIVEROS 350.1.13.10 i [place] [id number] [facility] 085 [facility] 2022-04-07 2022-04-07 [facility] [address] [place] 08:14:00 08:14:00 H 0714 da [facility] Outre h Program 2021-05-12 2021-05-12 Orders Doctor NUNO [id number] 00:00:00 00:00:00 Only Unassigned, PINKY 350.1.13.10 Kenton Vale [facility] 4.2.7.2.686 [id number] 2021-04-29 2021-04-[address] [facility] 1.2.840.114 [id number] 12:33:16 13:56:43 Visit Tucker Ontiveros 350.1.13.10 [place] 4.2.7.2.686 Professio [id number] [address] 2021-04-28 2021-04-28 Orders Malena [facility] [id number] 00:00:00 00:00:00 [facility] 350.1.13.10 CLINICS 4.2.7.2.686 [id number] [facility] 2021-03-19 2021-03-19 Patient Salcido, 1.2.840.1 [id number] Methodi 00:00:00 00:00:00 Outreach Ann [address]000.1.[address] 3.430.2.7 Hospit a .3.178935 l .8 2021-03-17 2021-03-18 Emergency Hector Alvarez 1.2.840.1 [id number] Methodi 14:59:00 17:52:00 Veda Bolanos [address]358.1.[address] Matt Berkowitz 3.430.2.7 Hospita .[id number] l .8 2021-03-17 2021-03-17 Travel 1.2.840.1 [id number] [id number] Methodi 00:00:00 00:00:[address] 3.430.2.7 0.2.7.3.698 Ho spita .3.021095 084.8 l .8 2017-09-06 2017-09-08 [id number] 10:12:00 02:32:00 [facility] Results Test Description Test Time Test [...] of 17-MAR-2021 15:19,-No significant change was found- [facility] [id number] 12:41:23 Test Item Value Reference Range Interpretation Comments Urine culture isolate Mixed alok <=10-3 (test code = 19385-0) col/cc [facility] Complete, (w Contrast, Strain and 3D if needed)2021-03-18 23:04:52 Test Item Value Reference Range Interpretation Comments Ao Root Diameter (test code = 2.73 cm 3475288643) AoV Area, Vmax (test code = 2.24 cm2 6392582205) AoV Area, VTI (test code = 2.25 cm2 3878583650) AoV Mean PG (test code = mmHg 0487692821) AoV Peak PG (test code = mmHg 2557775335) AoV Vmax (test code = 8452454759) 1.46 m/s AoV VTI (test code = 6922607408) 0.28 m IVS,d (test code = 2942486156) 0.72 cm IVS/LVPW,2D (test code = 8385529769) Left Atrium Dimension Anterior 2.68 cm (test code = 0921829194) LV,d (test code = 9243668104) 3.69 cm LV EF,2D (test code = 0087325769) 79.68 % LV,s (test code = 1116436086) 2.17 cm LVOT area (test code = 5214470546) 2.75 cm2 LVOT Diam,S (test code = 1.87 cm 4994772932) LVOT Vmax (test code = 8839914172) 1.18 m/s LVOT VTI (test code = 5741558971) 0.23 m LVPWD,d (test code = 0238447427) 0.65 cm PV Pk Grad (test code = 8504806637) mmHg PV VMAX (test code = 7477282612) 0.84 m/s RVOT Vmax (test code = 6779575226) 0.85 m/s RVSP (TR) (test code = 4301260175) mmHg TR Vpeak (test code = 5959188531) 2.86 mm/s MV E A ratio (test code = 3930131737) RA pressure (test code = mmHg 3275141121) TR pk grad (test code = 8078186098) mmHg MR Vmax (test code = 1177021036) 5.49 m/s E wave decelartion time (test code msec = 7289791901) MV Peak A Alf (test code = 0.76 m/s 1021467698) MV valve area p 1/2 method (test 3.26 cm2 code = 8535583357) MV Peak E Alf (test code = 0.92 m/s 1363242863) MV stenosis pressure 1/2 time (test 67.54 ms code = 0829183319) LVOT stroke volume (test code = 0.63 cm3 6061466546) AV LVOT peak gradient (test code = mmHg 4366271423) RVSP (test code = 0275616895) mmHg Ao Root Diameter (test code = 2.73 cm 9392700848) MV mean gradient (test code = mmHg 3044160448) LV SYS VOL (test code = 3237563459) 15.61 ml LV MARTINS VOL (test code = 57.63 ml 5705369991) LA area s A4C (test code = 11.16 cm2 2964196221) LV SV Teich 2D (test code = 42.02 ml 8512025045) LV Vol s Teich PSAX (test code = 15.61 ml 6969202534) MR peak grad (test code = mmHg 8789426098) MV Vmax (test code = 2095361288) 1.21 m MV VTI Tips (test code = 0.24 m 4194945938) RVOT pk grad (test code = mmHg 0941097088) AoV Vmn (test code = 2089163018) LV FS Teich 2D (test code = 0395098406) MV AE ratio (test code = 1335168131) LV FS Cube 2D (test code = 3525983208) LVOT Vmn (test code = 6191745351) Aov area Vmn (test code = 2.13 cm2 8979753940) LVOT mean grad (test code = mmHg 2186792884) MAX Pred HR (test code = 6323816452) 85 of MPHR (test code = 6982459366) Calc MPHR (test code = 5601258819) bpm LV SV Cube 2D (test code = 39.93 ml 5890003798) LV vol d cube 2D (test code = 50.11 ml 6521227200) LV vol s cube 2D (test code = 10.18 ml 8496745272) MV Decel slope (test code = 3.97 m/s2 0132434365) Pred Exer Dur R1 (test code = 8010424695) Pred METS R1 (test code = 0738948639) LA Vol MOD A4C (test code = 24.20 ml 4354957614) Velocity Ratio (V1/V2) (test code = 0.81 m/s 4689) EF (test code = 4017126574) 72.91 % E/A ratio (test code = 9786600342) LVOT VTI (CM) (test code = 23.00 cm 3564490308) SOMMER (test code = SOMMER) [facility] [id number] 17:32:37 Test Item Value Reference Range Interpretation Comments POC glucose (test code = 89686-1) 207 mg/dL 65-99 H Lab Interpretation (test code = Abnormal 60793-8) [facility] duplex venous lower [id number] 01:17:37 EXAMINATION: US DUPLEX VENOUS LOWER EXTREMITY BILATERAL CLINICAL HISTORY: Leg deep vein thrombosis (DVT) suspected COMPARISON: None. TECHNIQUE: Grayscale, color Doppler, [...] is no evidence of deep venous thrombosis. [facility]-[id number] Interface, Radiology Results 03/17/2021 8:20 PM CDT EXAMINATION: US DUPLEX VENOUS LOWER EXTREMITY BI LATERALCLINICAL HISTORY: Leg deep vein thrombosis (DVT) suspectedCOMPARISON: [...] or Segal's cyst.IMPRESSION:Normal bilateral lower extremity venous Dopplerexamination. There is no evidence of deep venous thrombosis.[facility]-[id number] HospitalXR Chest 1 Vw [id number] 21:32:52EXAMINATION: XR CHEST 1 VW PORTABLE CLINICAL HISTORY: 40 years Female SOB COMPARISON: None. IMPRESSION: Lines, tubes, and devices: Right-sided transvenous cardiac pacemaker. Heart and mediastinum: Cardiomediastinal silhouette is normal. Lungs and pleura: There is no focal airspace disease, pleural effusion or pneumothorax. Bones/soft tissues: No acute osseous abnormality. [facility]-[id number] Dictated and approved by resident assistant/fellow: Cristhian Calixto M.D. I, Jan Scott MD, personally reviewed the images and resident's/fellow's findings and agree with the final report.[facility], Radiology Results - 03/17/2021 4:35 PM CDT EXAMINATION: XR CHEST 1 VW PORTABLECLINICAL HISTORY: 40 years Female SOBCOMPARISON: None.IMPRESSION:Lines, tubes, and devices: Right-sided transvenous cardiac pacemaker.Heart and mediastinum: Cardiomediastinal silhouette is normal.Lungs and pleura: There is no focal airspace disease, pleural effusion or pneumothorax.Bones/soft tissues: No acute osseous abnormality.[facility]-[id number] and approved by resident assistant/fellow: Aleksandra Sanchez, Jan Scott MD, personally reviewed theimages and resident's/fellow's findings and agree with the final report.[facility]IA IMPLANT REPORT - [id number] 20:45:31 Ordered by an unspecified provider.[facility] Preliminary Interpretation - Not an [id number] 20:36:46 Test Item Value Reference Range Interpretation Comments SOMMER (test code = SOMMER) Lab Interpretation (test code = Abnormal 48973-0) [facility] Met[facility] [id number] 07:01:00 Test Item Value Reference Range Interpretation Comments Sodium (test code = 137 meq/L 465-640 0661-2) Potassium (test code = 4.3 meq/L 3.5-5.1 2823-3) Chloride (test code = 104 meq/L 98-107 2075-0) CO2 (test code = 24 meq/L 2027-9) BUN (test code = 15 mg/dL 04-14 3094-0) Creatinine (test code 0.81 mg/dL 0.57-1.25 = 2160-0) Glucose (test code = 108 mg/dL 70-105 H 2345-7) Calcium (test code = 9.2 mg/dL 8.4-10.2 02545-2) EGFR (test code = 79 mL/min/1.73 [place] [address]-6) NOT ACCURATE CREATININE CLEARANCE IN PREDICTING GLOMERULAR FILTRATION RATE . ESTIMATED GFR I S NOT APPLICABLE FOR DIALYSIS PATIENTS. SOMMER (test code = SOMMER) Customer Manager ID - PIAYA L Lab Interpretation Abnormal (test code = 72815-2) [facility]21-[facility] 07:01:00 Test Item Value Reference Range Interpretation Comments Magnesium (test code = 2.5 mg/dL 1.6-2.6 15662-0) SOMMER (test code = SOMMER) Customer Manager ID - PIAYA L Lab Interpretation (test Normal code = 26525-0) [facility]osph[facility]2021-[facility] 07:01:00 Test Item Value Reference Range Interpretation Comments Phosphorus (test code = 4.3 mg/dL 2.3-4.7 2777-1) SOMMER (test code = SOMEMR) Customer Manager ID - PIAYA L Lab Interpretation (test Normal code = 84918-2) [facility] METABOLIC [id number] 07:01:00 Test Item Value Reference Range Interpretation [...] 697) EGFR (BEAKER) (test 79 mL/min/1.73 ESTIMA IADA GFR IS code = 1092) sq m NOT ACCURATE CREATININE CLEARANCE IN PREDICTING GLOMERULAR FILTRATION RATE . ESTIMATED GFR I S NOT APPLICABLE FOR DIALYSIS PATIEN TS. Customer Manager ID - MACHELLE [id number] 07:01:00 Test Item Value Reference Range Interpretation Comments MAGNESIUM (BEAKER) (test code = 2.5 mg/dL 1.6-2.6 627) Customer Manager ID - PIDEANN [id number] 07:01:00 Test Item Value Reference Range Interpretation Comments PHOSPHORUS (BEAKER) (test code = 4.3 mg/dL 2.3-4.7 604) Customer Manager ID - MACHELLE LCBC with platelet count + automated [id number] 05:37:00 Test Item Value Reference Range Interpretation Comments WBC (test code = 6690-2) 6.8 See_Comment [A utomated message] The system [place] generated this result transmitted ref erence range: 3.5 - 10 .5 K/L. The refe rence range was not u sed to interpret this result as normal/abnor mal. RBC (test code = 789-8) 5.14 See_Comment [Au tomated message] The system [place] generated this result transmitted ref erence range: 3.93 - 5 .22 M/L. The refe rence range was not u sed to interpret this result as normal/abnor mal. MCHC (test code = 786-4) 31.6 See_Comment L [A utomated message] The system [place] generated this result transmitted ref erence range: [...] See_Comment [Aut omated message] 777-3) The system [place] generated this result transmitted ref erence range: 150 - 45 0 K/CU MM. The referen ce range was not u sed to interpret this result as normal/abnor mal. MPV (test code = 10.0 fL 9.4-12.3 38276-5) nRBC (test code = 413) 0 See_Comment [Aut omated message] The system [place] generated this result transmitted ref erence range: [...] See_Comment [Aut omated message] 670) The system [place] generated this result transmitted ref erence range: 1.56 - 6 .13 K/L. The refe rence range was not u sed to interpret this result as normal/abnor mal. # Lymphs (test code = 2.10 See_Comment [Auto mated message] 414) The system [place] generated this result transmitted ref erence range: 1.18 - 3 .74 K/L. The refe rence range was not u sed to interpret this result as normal/abnor mal. # Monos (test code = 0.48 See_Comment H [Autom ated message] 415) The system [place] generated this result transmitted ref erence range: 0.24 - 0 .36 K/L. The refe rence range was not u sed to interpret this result as normal/abnor mal. # Eos (test code = 416) 0.26 See_Comment [Au tomated message] The system [place] generated this result transmitted ref erence range: 0.04 - 0 .36 K/L. The refe rence range was not u sed to interpret this result as normal/abnor mal. # Baso (test code = 417) 0.04 See_Comment [A utomated message] The system whic h generated this result transmitted ref erence range: 0.01 - 0 .08 K/L. The refe rence range was not u sed to interpret this result as normal/abnor mal. Immature 1 % 0-1 Granulocytes-Relative (test code = 2801) Lab Interpretation (test Abnormal code = 04047-0) [facility] W/PLT COUNT & AUTO [id number] 05:37:00 Test Item Value Reference Range Interpretation [...] code = 2801) MR, MRA, BRAIN, WITHOUT [id number] 16:54:00Reason for exam:->Ischemic Stroke EvaluationS[facility] : 1980 Sex: FFINAL REPORT MR, BRAIN, WITHOUT CONTRAST, MR, MRA, BRAIN, WITHOUT CONTRAST, MR, MRA, NECK, WITHOUT IV CONTRAST INDICATION: Stroke, follow upIschemic Stroke Evaluation TECHNIQUE: Multiplanar, multisequence MR imaging of the brain without intravenous contrast.MRA of the head utilizing 3-D vgqd-ut-riaugl technique, with 3-D reconstructions.MRA of the neck utilizing 2-D and 3-D ywsq-zi-rngcqw technique, with 3-D reconstructions. COMPARISON: MRI and MRA 08/21/2018 FINDINGS: MRI Brain:Intracranial: Exam is degraded by motion. No intracranial hemorrhage. No restricted diffusion to suggest acute infarct. No mass effect. No hydrocephalus. Sinuses: Mild mucosal thickening in the right max illary sinus. Mastoids are clear. Orbits: Globes are intact. Calvarium \\T\\ scalp: Unremarkable. MRA Head:There is no evidence of intracranial aneurysm, focal stenosis, or major branch vessel occlusion.MRA Neck:The carotid arteries in the neck are patent including their bifurcations. There is antegrade flow in the vertebral arteries in the neck. IMPRESSION:No acute intracranial abnormality. No proximal branch arterial occlusion or high-grade focal stenosis within the head and neck. Signed: Lakshmi Amador MDReport Verified Date/Time: 02/11/2021 16:54:16 MR, MRA, NECK, WITHOUT IV [id number] 16:54:00Reason for exam:->Ischemic Stroke Evaluation [facility] : 1980 Sex: FFINAL REPORT MR, BRAIN, WITHOUT CONTRAST, MR, MRA, BRAIN, WITHOUT CONTRAST, MR, MRA, NECK, WITHOUT IV CONTRAST INDICATION: Stroke, follow upIschemic Stroke Evaluation TECHNIQUE: Multiplanar, multisequence MR imaging of the brain without intravenous contrast.MRA of the head utilizing 3-D dhni-bz-mktann technique, with 3-D reconstructions.MRA of the neck utilizing 2-D and 3-D mqna-rt-snofrk technique, with 3-D reconstructions. COMPARISON: MRI and MRA 08/21/2018 FINDINGS: MRI Brain:Intracranial: Exam is degraded by motion. No intracranial hemorrhage. No restricted diffusion to suggest acute infarct. No mass effect. No hydrocephalus. Sinuses: Mild mucosal thickening in the right max illary sinus. Mastoids are clear. Orbits: Globes are intact. Calvarium \\T\\ scalp: Unremarkable. MRA Head:There is no evidence of intracranial aneurysm, focal stenosis, or major branch vessel occlusion.MRA Neck:The carotid arteries in the neck are patent including their bifurcations. There is antegrade flow in the vertebral arteries in the neck. IMPRESSION:No acute intracranial abnormality. No proximal branch arterial occlusion or high-grade focal stenosis within the head and neck. Signed: Lakshmi Amador Verified Date/Time: 02/11/2021 16:54:16 MR, BRAIN, WITHOUT [id number] 16:54:00Reason for exam:->Ischemic Stroke Evaluation [facility] : 1980 Sex: FFINAL REPORT MR, BRAIN, WITHOUT CONTRAST, MR, MRA, BRAIN, WITHOUT CONTRAST, MR, MRA, NECK, WITHOUT IV CONTRAST INDICATION: Stroke, follow upIschemic Stroke Evaluation TECHNIQUE: Multiplanar, multisequence MR imaging of the brain without intravenous contrast.MRA of the head utilizing 3-D odvs-gy-oobxcs technique, with 3-D reconstructions.MRA of the neck utilizing 2-D and 3-D patf-sx-pmpoql technique, with 3-D reconstructions. COMPARISON: MRI and MRA 08/21/2018 FINDINGS: MRI Brain:Intracranial: Exam is degraded by motion. No intracranial hemorrhage. No restricted diffusion to suggest acute infarct. No mass effect. No hydrocephalus. Sinuses: Mild mucosal thickening in the right max illary sinus. Mastoids are clear. Orbits: Globes are intact. Calvarium \\T\\ scalp: Unremarkable. MRA Head:There is no evidence of intracranial aneurysm, focal stenosis, or major branch vessel occlusion.MRA Neck:The carotid arteries in the neck are patent including their bifurcations. There is antegrade flow in the vertebral arteries in the neck. IMPRESSION:No acute intracranial abnormality. No proximal branch arterial occlusion or high-grade focal stenosis within the head and neck. Signed: Lakshmi Amador Verified Date/Time: 02/11/2021 16:54:16 MR brain without IV [id number] 16:54:00Interface, External Ris In - 02/11/2021 4:56 PM CDTFINAL REPORT MR, BRAIN, WITHOUT CONTRAST, MR, MRA, BRAIN, WITHOUT CONTRAST, MR, MRA, NECK, WITHOUT IV CONTRAST INDICATION: Stroke, follow upIschemic Stroke Evaluation TECHNIQUE: Multiplanar, multisequence MR imaging of the brain without intravenous contrast.MRA of the head utilizing 3-D gyof-ad-uwkusq technique, with 3-D reconstructions.MRA of the neck utilizing 2-D and 3-D auez-so-ebijlz technique, with 3-D reconstructions. COMPARISON: MRI and MRA 08/21/2018 FINDINGS: MRI Brain:Intracranial: Exam is degraded by motion. No intracranial hemorrhage. No restricted diffusion to suggest acute infarct. No mass effect. No hydrocephalus. Sinuses: Mild mucosal thickening in the right maxillary sinus. Mastoids are clear. Orbits: Globesare intact. Calvarium \\T\\ scalp: Unremarkable. MRA Head:There [...] Signed: Lakshmi Amadorort Verified Date/Time: 02/11/2021 16:54:16 [facility] [id number] 16:54:00Interface, External Ris In - 02/11/2021 4:56 PM CDTFINAL REPORT MR, BRAIN, WITHOUT CONTRAST, MR, MRA, BRAIN, WITHOUT CONTRAST, MR, MRA, NECK, WITHOUT IV CONTRAST INDICATION: Stroke, follow upIschemic Stroke Evaluation TECHNIQUE: Multiplanar, multisequence MR imaging of the brain without intravenous contrast.MRA of the head utilizing 3-D qtjj-ac-bcexem technique, with 3-D reconstructions.MRA of the neck utilizing 2-D and 3-D xhjs-xr-kjrzxv technique, with 3-D reconstructions. COMPARISON: MRI and MRA 08/21/2018 FINDINGS: MRI Brain:Intracranial: Exam is degraded by motion. No intracranial hemorrhage. No restricted diffusion to suggest acute infarct. No mass effect. No hydrocephalus. Sinuses: Mild mucosal thickening in the right maxillary sinus. Mastoids are clear. Orbits: Globesare intact. Calvarium \\T\\ scalp: Unremarkable. MRA Head:There [...] Lakshmi Amador MDReport Verified Date/Time: 02/11/2021 16:54:16 [facility] IV [id number] 16:54:00Interface, External Ris In - 02/11/2021 4:56 PM CDTFINAL REPORT MR, BRAIN, WITHOUT CONTRAST, MR, MRA, BRAIN, WITHOUT CONTRAST, MR, MRA, NECK, WITHOUT IV CONTRAST INDICATION: Stroke, follow upIschemic Stroke Evaluation TECHNIQUE: Multiplanar, multisequence MR imaging of the brain without intravenous contrast.MRA of the head utilizing 3-D vyfy-zs-kbxahr technique, with 3-D reconstructions.MRA of the neck utilizing 2-D and 3-D jubk-po-ktuhpl technique, with 3-D reconstructions. COMPARISON: MRI and MRA 08/21/2018 FINDINGS: MRI Brain:Intracranial: Exam is degraded by motion. No intracranial hemorrhage. No restricted diffusion to suggest acute infarct. No mass effect. No hydrocephalus. Sinuses: Mild mucosal thickening in the right maxillary sinus. Mastoids are clear. Orbits: Globesare intact. Calvarium \\T\\ scalp: Unremarkable. MRA Head:There [...] Signed: Lakshmi Amador Verified Date/Time: 02/11/2021 16:54:16 [facility] 14[facility]02:00 Test Item Value Reference Range Interpretation Comments RPR (test code = 72832-2) Nonreactive Nonreactive Lab Interpretation (test code = Normal 43203-6) [facility] 14:02[facility]00 Test Item Value Reference Range Interpretation Comments RPR SCREEN (BEAKER) (test code = Nonreactive Nonreactive 420) Hemoglobin [id number] 09:35:00 Test Item Value Reference Range Interpretation Comments Hemoglobin A1C (test code = 4548-4) 6.0 % 4.3-6.1 Lab Interpretation (test code = Normal 12540-0) [facility]HEMOGLOBIN [id number] 09:35:00 Test Item Value Reference Range Interpretation Comments HEMOGLOBIN A1C (BEAKER) (test code = 6.0 % 4.3-6.1 368) Rapid drug screen, [id number] 07:26:00 Test Item Value Reference Range Interpretation Comments Barbiturate Screen Negative Negative (test code = 89721-6) Benzodiazepine Screen Negative Negative (test code = 58651-4) Cocaine (Metab.) Negative Negative Screen (test code = 3397-7) Methadone Screen (test Negative Negative code = 81371-1) Opiate Screen (test Negative Negative code = 79067-6) Cannabinoid Screen Negative Negative (test code = 26304-7) Amph/Methamph Screen Negative Negative (test code = 83681-8) Phencyclidine Screen Negative Negative (test code = 78828-5) pH, UA (test code = 6.5 5.0-8.0 5803-2) SOMMER (test code = SOMMER) DRUG CUTOFF CONC.Cocaine 300 ng/mL Cannabinoid 50 ng/mLBenzodiazepine 200 ng/mLBarbiturate 200 ng/mLPhencyclidine 25 ng/mLOpiate 300 ng/mLMethadone 300 ng/mLAmphetamine/ 1000 ng/mL Methamphetamine This assay provides an unconfirmed qualitative test result for the clinical management of patients in emergency situations. Chain of custody not maintained. Some yvbd-qkj-dwxofte medications, as well as adulterants, may cause inaccurate results. Clinical correlation should be applied. A more comprehensive drug screen or confirmation of a detected drug may be performed upon request.Customer Manager ID - VIET M Lab Interpretation Normal (test code = 23406-8) [facility] HospitalR[facility] SCREEN, [id number] 07:26:00 Test Item Value Reference Range Interpretation [...] situations. Chain of custody not maintained. Some ymlx-eyt-jpgbkau medications, as well as adulterants, may cause inaccurate results. Clinical correlation should be applied. A more comprehensive drug screen or confirmation of a detected drug may be performed upon request.Customer Manager ID - VIET MUrinalysis with Microscopic If [id number] 07:11:00 Test Item Value Reference Range Interpretation Comments Color, UA (test code = Light Yellow 5778-6) Clarity, UA (test code = Clear 5767-9) Specific [place], UA (test 1.012 1.001-1.035 code = 5811-5) pH, UA (test code = 6.5 5.0-8.0 5803-2) Protein, UA (test code = Negative Negative 64364-7) Glucose, UA (test code = Negative Negative 365) Ketones, UA (test code = Negative Negative 2514-8) Bilirubin, UA (test code = Negative Negative 76942-2) Blood, UA (test code = Small Negative A 27198-0) Nitrite, UA (test code = Negative Negative 5802-4) Leukocytes, UA (test code Small Negative A = 5799-2) Urobilinogen, UA (test 0.2 mg/dL 0.2-1 code = 23605-1) Specimen Source (test code = 2795) SOMMER (test code = SOMMER) Customer Manager ID - [auto]Customer Manager ID - tech Lab Interpretation (test Abnormal code = 46148-9) [facility] HospitalUrinalysis Microscopic [id number] 07:11:00 Test Item Value Reference Range Interpretation Comments RBC, UA (test 11 See_Comment [Automated me ssage] code = 88025-5) The system [employer] generated this result transmitted ref erence range: /HPF. Th e reference range was not used to int erpret this result as normal/abnormal . WBC, UA (test 11 See_Comment [Automated me ssage] code = 5821-4) The system [facility] generated this result transmitted ref erence range: /HPF. Th e reference range was not used to int erpret this result as normal/abnormal . Mucus (test Rare code = 8247-9) Squam Epithel, 3 See_Comment [Automated m essage] UA (test code = The system [employer] 77098-3) generated this result transmitted ref erence range: /HPF. Th e reference range was not used to int erpret this result as normal/abnormal . SOMMER (test code Customer Manager ID - tech = SOMMER) [facility]URINALYSIS WITH MICROSCOPIC IF [id number] 07:11:00 Test Item Value Reference Range Interpretation [...] = 463) SOURCE(BEAKER) (test code = 2795) Customer Manager ID - [auto]Customer Manager ID - techURINALYSIS [id number] 07:11:00 Test Item Value Reference Range Interpretation Comments RBC UA (BEAKER) (test code = 519) 11 /HPF WBC UA (BEAKER) (test code = 520) 11 /HPF MUCUS (BEAKER) (test code = 1574) Rare SQUAMOUS EPITHELIAL (BEAKER) (test 3 /HPF code = 516) Customer Manager ID - techDigoxin [id number] 06:22:00 Test Item Value Reference Range Interpretation Comments Digoxin Lvl (test code = <0.30 0.8-2 L 49224-1) SOMMER (test code = SOMMER) Customer Manager ID - MACHELLE L Lab Interpretation (test Abnormal code = 37307-9) [facility] HospitalDIGOXIN [id number] 06:22:00 Test Item Value Reference Range Interpretation Comments DIGOXIN LEVEL (BEAKER) (test code = < ng/mL 0.80-2.00 L 669) Customer Manager ID - MACHELLE GMzcbilklrnmq7507-81-63 05:58:00 Test Item Value Reference Range Interpretation Comments Homocysteine (test code = 7.3 umol/L 5.1-15.4 64500-6) SOMMER (test code = SOMMER) Customer Manager ID - MACHELLE L Lab Interpretation (test Normal code = 36379-8) [facility] HospitalTSH/Free T4 If [id number] 05:58:00 Test Item Value Reference Range Interpretation Comments TSH (test code = 4.368 See_Comment [Automated 33526-5) message] The system which generated this result transmit aida reference range : 0.350 - 4.940 uIU/mL. The reference range was not used to interpret this result as normal/abnormal . SOMMER (test code = SOMMER) Customer Manager ID - MACHELLE L Lab Interpretation Normal (test code = 49855-5) [facility] HospitalVitamin B12 and [id number] 05:58:00 Test Item Value Reference Range Interpretation Comments Vitamin B12 (test 557 pg/mL 213-816 code = 2132-9) Folate (test code = 11.20 ng/mL See_Comment [Automa aida 2284-8) message] The system which generated this result transmit aida reference range : >=7.00. The reference range was not used to interpret this result as normal/abnormal . SOMMER (test code = SOMMER) Customer Manager ID - MACHELLE L Lab Interpretation Normal (test code = 20344-1) [facility] HospitalYrknbxQEOAHNHMBUDW7781-71-65 05:58:00 Test Item Value Reference Range Interpretation Comments HOMOCYSTEINE (BEAKER) (test code = 7.3 umol/L 5.1-15.4 642) Customer Manager ID - MACHELLE LTSH/FREE T4 IF [id number] 05:58:00 Test Item Value Reference Range Interpretation Comments THYROID STIMULATING HORMONE 4.368 uIU/mL 0.350-4.940 (BEAKER) (test code = 772) Customer Manager ID - MACHELLE LVITAMIN B12 AND [id number] 05:58:00 Test Item Value Reference Range Interpretation Comments VITAMIN B12 557 pg/mL 213-816 (BEAKER) (test code = 774) FOLATE (BEAKER) 11.20 ng/mL See_Comment [Automated message] (test code = 362) The system which generated this result transmitted ref erence range: >=7.00. The reference range was not used to interpr et this result as normal/abnormal . Customer Manager ID - MACHELLE LC-Reactive [id number] 04:54:00 Test Item Value Reference Range Interpretation Comments CRP (test code = 676) 0.81 mg/dL 0-0.5 H SOMMER (test code = SOMMER) Customer Manager ID - MACHELLE L Lab Interpretation (test Abnormal code = 60939-0) [facility] [id number] 04:54:00 Test Item Value Reference Range Interpretation Comments MAGNESIUM (BEAKER) 2.1 mg/dL 1.6-2.6 Specimen slightly (test code = 627) hemolyzed Customer Manager ID - MACHELLE [id number] 04:54:00 Test Item Value Reference Range Interpretation Comments PHOSPHORUS (BEAKER) 4.3 mg/dL 2.3-4.7 Specimen slightly (test code = 604) hemolyzed Customer Manager ID - MACHELLE LBASIC METABOLIC [id number] 04:54:00 Test Item Value Reference Range Interpretation [...] S NOT APPLICABLE FOR DIALYSIS PATIEN TS. Customer Manager ID - MACHELLE LC-REACTIVE [id number] 04:54:00 Test Item Value Reference Range Interpretation Comments C-REACTIVE PROTEIN (BEAKER) (test 0.81 mg/dL 0.00-0.50 H code = 676) Customer Manager ID - MACHELLE LCBC W/PLT COUNT & AUTO [id number] 02:54:00 Test Item Value Reference Range Interpretation [...] = 2801) RAD, CHEST, 1 VIEW, NON [id number] 22:40:00Reason for exam:->strokeShould this be performed at the bedside?->Yes [facility] 1980 Sex: FFINAL REPORT RAD, CHEST, 1 VIEW, NON DEPT TECHNIQUE: Frontal view(s) of the chest. INDICATION: stroke. COMPARISON: 08/20/2018 chest radiograph FINDINGS/IMPRESSION: Lines/Tubes: Unchanged 2-lead pacemaker Lungs/pleura: No focal consolidation or definite interstitial pulmonary edema.No pleural effusion. No pneumothorax. Heart and Mediastinum: Unremarkable. Soft Tissues and Bones: Unremarkable. Signed: Wilmer Nieves Verified Date/Time: 02/10/2021 22:40:02 Reading Location: [address] Transitional Reading Room XR chest 1 view portable / [id number] 22:40:00Interface, External Ris In - 02/10/2021 10:42 PM CDTFINAL REPORT RAD, CHEST, 1 VIEW, NON DEPT TECHNIQUE: Frontal view(s) of the chest. INDICATION: stroke. COMPARISON: 08/20/2018 chest radiograph FINDINGS/IMPRESSION: Lines/Tubes: Unchanged 2-lead pacemaker Lungs/pleura: No focal consolidation or definite interstitial pulmonary edema. No pleural effusion. No pneumothorax. Heart andMediastinum: Unremarkable. Soft Tissues and Bones: Unremarkable. Signed: Lizbeth, Wilmer MDReport Verified Date/Time: 02/10/2021 22:40:02 Reading Location: [facility] C0[facility] Transitional Reading Room [facility] W/PLT COUNT & AUTO [id number] 22:16:00 Test Item Value Reference Range Interpretation [...] Range Interpretation Comments BNP (test code = 82089-3) <10 0-100 SOMMER (test code = SOMMER) Customer Manager ID - BS Lab Interpretation (test Normal code = 70685-5) [facility] HospitalB-TYPE NATRIURETIC FACTOR (BNP)2021-02-10 22:04:00 Test Item Value Reference Range Interpretation Comments B-TYPE NATRIURETIC PEPTIDE (BEAKER) < pg/mL 0-100 (test code = 700) Customer Manager ID - BSHigh Sensitivity Troponin I ([facility]/[place]aley Only)2021-02-10 21:57:00 Test Item Value Reference Range Interpretation Comments Troponin I HS (test <4 See_Comment [Automa aida code = 53686-8) message] The system which generated this result transmitted reference range : <=17 pg/ml. The reference range was not used to interpret this result as normal/abnormal . SOMMER (test code = Customer Manager ID - SOMMER) BSThe INSPECTOR POISING STAT High Sensitivity Troponin-I results should be used in conjunction with other diagnostic information such as ECG, clinical observations and information, and patient symptoms to aid in the diagnosis of VT. Lab Interpretation Normal (test code = 07434-1) [facility] HospitalHIGH SENSITIVITY TROPONIN [id number] 21:57:00 Test Item Value Reference Range Interpretation Comments HIGH SENSITIVITY < pg/ml See_Comment [Automated message] TROPONIN I (test code = The system which 4953059) generated this result transmitted ref erence range: <=17. Th e reference range was not used to interpr et this result as normal/abnormal . Customer Manager ID - BSThe INSPECTOR POISING STAT High Sensitivity Troponin-I results should be used in conjunctionwith other diagnostic information such as ECG, clinical observations and information, and patient symptoms to aid in the diagnosis of VT.Lipid [id number] 21:54:00 Test Item Value Reference Range Interpretation Comments Triglycerides (test 171 mg/dL Specimen code = 2571-8) markedly hemolyzed Cholesterol (test 218 mg/dL Specimen code = 2093-3) markedly hemolyzed HDL (test code = 47 mg/dL 2084-9) LDL Calculated (test 137 mg/dL code = 88821-5) SOMMER (test code = Triglyceride SOMMER) Reference Range: Low Risk <150 Borderline 150-199 High Risk 200-499 Very High Risk >=500 Cholesterol Reference Range: Low Risk <200 Borderline 200-239 High Risk >240 HDL Cholesterol Reference Range: Low Risk >=60 High Risk <40 LDL Cholesterol Reference Range: Optimal <100 Near Optimal 100-129 Borderline 130-159 High 160-189 Very High >=190 Customer Manager ID - BS [facility] HospitalLIPID [id number] 21:54:00 Test Item Value Reference Range Interpretation Comments TRIGLYCERIDES (BEAKER) 171 mg/dL Speci men markedly (test code = 540) hemolyzed CHOLESTEROL (BEAKER) 218 mg/dL Specime n markedly (test code = 631) hemolyzed HDL CHOLESTEROL (BEAKER) 47 mg/dL (test code = 976) LDL CHOLESTEROL 137 mg/dL CALCULATED (BEAKER) (test code = 633) Triglyceride Reference Range: Low Risk <150 Borderline 150-199 High Risk 200- 499 Very High Risk >=500Cholesterol Reference Range: Low Risk <200 Borderline 200-239 High Risk >240HDL Cholesterol Reference Range: Low Risk >=60 High Risk <40LDL Cholesterol Reference Range: Optimal <100 Near Optimal 100-129 Borderline 130-159 High 160-189 Very High >=190 Customer Manager ID - BSComprehensive metabolic [id number] 21:52:00 Test Item Value Reference Range Interpretation Comments Protein, Total 8.0 See_Comment Specimen slig htly (test code = hemolyzed 2885-2) [Automated message] The system which generated this result transmit aida reference range : 6.0 - 8.3 gm/dL . The reference range was not u sed to interpret th is result as normal/abnormal . Albumin (test code 4.2 g/dL 3.5-5 Specimen slightly = 92850-5) hemolyzed Alkaline 135 U/L 40-150 Phosphatase (test code = 6768-6) Total Bilirubin 0.2 mg/dL 0.2-1.2 Specimen sli ghtly (test code = hemolyzed 1974-) Sodium (test code = 139 meq/L 952-616 9594-2) Potassium (test 4.5 meq/L 3.5-5.1 Specimen sli ghtly code = 2823-3) hemolyzed Chloride (test code 103 meq/L 98-107 = 2075-0) CO2 (test code = 25 meq/L 22-29 2028-05) BUN (test code = 9 mg/dL 7-21 3094-0) Creatinine (test 0.78 mg/dL 0.57-1.25 Specimen sl ightly code = 2160-0) hemolyzed Glucose (test code 105 mg/dL 70-105 = 2345-7) Calcium (test code 9.6 mg/dL 8.4-10.2 = 65109-9) AST (test code = 28 U/L 5-34 Specimen sl ightly 1920-8) hemolyzed ALT (test code = 52 U/L 6-55 Specimen sl ightly 1742-6) hemolyzed EGFR (test code = 82 mL/min/1.73 [place] [address]-3) NOT ACCURATE CREATININE CLEARANCE IN PREDICTING GLOMERULAR FILTRATION RATE . ESTIMATED GFR I S NOT APPLICABLE FOR DIALYSIS PATIEN TS. SOMMER (test code = Customer Manager ID - BS SOMMER) [facility] HospitalCreatine Kinase (CK)2021-02-10 21:52:00 Test Item Value Reference Range Interpretation Comments Total CK (test code = 70 U/L 29-200 2156-6) SOMMER (test code = SOMMER) Customer Manager ID - BS Lab Interpretation (test Normal code = 47062-9) [facility] HospitalMAGNESIUM2021-05-19 21:52:00 Test Item Value Reference Range Interpretation Comments MAGNESIUM (BEAKER) 2.2 mg/dL 1.6-2.6 Specimen slightly (test code = 627) hemolyzed Customer Manager ID - [id number] 21:52:00 Test Item Value Reference Range Interpretation Comments PHOSPHORUS (BEAKER) 4.4 mg/dL 2.3-4.7 Specimen slightly (test code = 604) hemolyzed Customer Manager ID - BSCOMPREHENSIVE METABOLIC [id number] 21:52:00 Test Item Value Reference Range Interpretation [...] S NOT APPLICABLE FOR DIALYSIS PATIEN TS. Customer Manager ID - BSCREATINE KINASE (CK)2021-02-10 21:52:00 Test Item Value Reference Range Interpretation Comments CREATINE KINASE TOTAL (BEAKER) (test 70 U/L 29-200 code = 380) Customer Manager ID - [id number] 21:46:00 Test Item Value Reference Range Interpretation Comments PTT (test code = 50909-1) 30.5 See_Comment [ Automated message] The system whic h generated this result transmitted ref erence range: 22.5 - 3 6.0 seconds. The re ference range was not u sed to interpret this result as normal/abnor mal. Lab Interpretation (test Normal code = 38645-5) [facility] HospitalLactic acid, [id number] 21:46:00 Test Item Value Reference Range Interpretation Comments Lactate, Venous (test 1.96 mmol/L 0.5-2.2 Specim en code = 2872) markedly hemolyzed SOMMER (test code = SOMMER) Customer Manager ID - BS Lab Interpretation Normal (test code = 12513-5) [facility] HospitalAPTT2021-05-19 21:46:00 Test Item Value Reference Range Interpretation Comments PARTIAL THROMBOPLASTIN TIME 30.5 seconds 22.5-36.0 (BEAKER) (test code = 760) LACTIC ACID, [id number] 21:46:00 Test Item Value Reference Range Interpretation Comments LACTATE BLOOD VENOUS 1.96 mmol/L 0.50-2.20 Specime n markedly (2) (BEAKER) (test hemolyzed code = 2872) Customer Manager ID - BSProthrombin time/[id number] 21:45:00 Test Item Value Reference Interpretation Comments Range Protime (test code = 12.7 See_Comment [Autom ated 5902-2) message] The system which generated this result transmitted reference range : 11.9 - 14.2 seconds. The reference range was not used to interpret this result as normal/abnormal . INR (test code = 0.98 See_Comment [Automated 9561-6) message] The system which generated this result [...] valves. Lab Interpretation Normal (test code = 49747-5) [facility] HospitalPROTHROMBIN TIME/[id number] 21:45:00 Test Item Value Reference Range Interpretation Comments PROTIME (ARNOL) 12.7 seconds 11.9-14.2 (test code = 759) INR (ARNOL) (test 0.98 See_Comment [Automat ed message] code = 370) The system [place] generated this result transmitted ref erence range: <=5.90. The reference range was not used to int erpret this result as normal/abnormal . RECOMMENDED COUMADIN/WARFARIN INR THERAPY RANGESSTANDARD DOSE: 2.0 - 3.0 Includes: PROPHYLAXIS for venous thrombosis, systemic embolization; TREATMENT for venous thrombosis and/or pulmonary embolus.HIGH RISK: Target INR is 2.5-3.5 for patients with mechanical heart valves.POC-Glucose [id number] 21:39:00 Test Item Value Reference Range Interpretation Comments POC-Glucose Meter (test 93 mg/dL 70-110 : TE STED AT [facility] code = 1538) [address] [facility], [address]: Customer Manager/Techni rhonda ID = [id number] for AILYN JAVIER A Lab Interpretation (test Normal code = 43024-8) [facility] HospitalPOCT-GLUCOSE [id number] 21:39:00 Test Item Value Reference Range Interpretation Comments POC-GLUCOSE METER 93 mg/dL 70-110 : TESTED A T [facility] [address] (BEAKER) (test code = AYLIN Rivera [facility], 1538) [address]: Customer Manager/Techni rhonda ID = [id number] for GERTRUDE SHAY [id number] 15:45:00 Test Item Value Reference Range Interpretation Comments SURG (test code = SURG) RUN DATE: 09/30/20 [facility] PAGE 1 RUN TIME: 1545 Specimen Inquiry RUN USER: INTERFACE PATIENT: ADAM RIVERA LOC: [place] U #: [id number] AGE/SX: 40/F ROOM: RE09/29/20[facility] DR: Linus Boone MD : 82 BED: DIS: STATUS: [facility] [place] TLOC: SPEC #: [id number]:S-[id number] RECD: 09/29/20 STATUS: MACIEL DEY #: [id number] WU: 09/29/20 [facility] DR: Linus Boone MD ENTERED: 09/29/20 SP TYPE: SURG OTHR DR: Undefined Provider ORDERED: SURG PATH LVL 4 COPIES TO: Linus Boone MD [address] [place] [address] Undefined Provider HISTOLOGY: TISSUE ID BLK PCS DHIRAJ LEV PROCEDURE DISPOSITION ____ ___ ___ ___ STOMACH, NOS A 1 2 PROCEDURES: SURG PATH LVL 4 (09/29/20) TISSUES: A. STOMACH, NOS - GASTRIC BIOPSY CLINICAL HISTORY R10.13, K21.9, K92.0, R14.0, R11.2, R19.7, R19.4 CPT CODES CPT CODE(S): 61291 , , , , , , FINAL DIAGNOSIS Stomach, biopsy: MILD CHRONIC GASTRITIS NEGATIVE FOR INTESTINAL METAPLASIA, DYSPLASIA, OR MALIGNANCY NEGATIVE FOR HELICOBACTER PYLORI ORGANISMS GROSS DESCRIPTION Gastric biopsy. Received in formalin are two wilkinson tissue fragments, 0.4 cm each, all as A. bk/nr Grossing performed at [facility] Pathology, [address], [address], [place] [address]. Cinema Or Theatre Manager: Aditya Hanson M.D. CONTINUED ON NEXT PAGE RUN DATE: 09/30/20 [facility] PAGE 2 RUN TIME: 1545 Specimen Inquiry RUN USER: INTERFACE SPEC #: [facility]:[id number] PATIENT: ADAM RIVERA #[id number] (Continued) MICROSCOPIC DESCRIPTION Gastric biopsy. Sections demonstrate gastric mucosa with mild chronic inflammation. No dysplasia or malignancy is identified. No evidence of Helicobacter pylori organisms or intestinal metaplasia is seen. Signed SIGNATURE ON FILE Hector Issa 09/30/20 1545 END OF REPORT COVID 19 INHOUSE [id number] 13:41:00 Test Item Value Reference Range Interpretation Comments COVID 19 INHOUSE AG NEGATIVE Negative Per manu facturer, (test code = negative result s should [id number]) be treated aspr esumptive and, if inconsi stent with clinical signs andsymptoms or necessary for patient man agement, should betested with an alternative mol ecular assay. Negative resultsdo not preclude SA RS-CoV-2 infection and s hould not be usedas the s ole basis for patient man agement decisions. Nega tive results should be considered in t he context of apatient's r ecent exposures, hist ory, presence of cli nicalsigns and symptoms co nsistent with COVID-19. BASIC METABOLIC [id number] 13:40:00 Test Item Value Reference Range Interpretation [...] MG/DL 8.5-10.1 N - XR CHEST 1 [id number] 13:33:00 [facility] 1980 Sex: F Name: ADAM RIVERA [facility] : 1980 Age/S: 40 / F [id number] Unit #: [id number] Loc: [place] [address] Phys: Linus Boone MD Acct: [id number] Dis Date: Status: PRE [facility] [place] PHONE #: [phone] Exam Date: 09/28/2020 1326 FAX #: Reason: PREOP EXAMS: CPT: [id number] XR CHEST 1 V 75114 Fluoro Time: DAP (Gy m2): Air Kerma (mGy): EXAM: CHEST ONE VIEW INDICATION: PREOP LOCATION: B2 COMPARISON: None available TECHNIQUE: AP view of the chest FINDINGS: The heart size is normal.. There is a cardiac pacing device in the right chest with no apparent discontinuity of the leads. The lungs are clear bilaterally. The pulmonary vasculature is normal. No pneumothorax or pleural e ffusion is identified. The osseous structures are normal. IMPRESSION: No acute cardiopulmonary process. at 1333 Reported and signed by: Lynda Pitts M.D. CC: Linus Boone MD PAGE 1 Signed Report Name: ADAM RIVERA : 1980 Age/S: 40 / F [id number] Unit #: [id number] Loc: [place] [address] Phys: Linus Boone MD Acct: [id number] Dis Date: Status: PRE SDC PHONE #: [phone] Exam Date: 09/28/2020 1326 FAX #: Reason: PREOP EXAMS: CPT: [id number] XR CHEST 1 V 56638 Fluoro Time: DAP (Gy m2): Air Kerma (mGy): <Continued> Technologist: Shari Davila RT(R)(CT) Trnscb Date/Time: 09/28/2020 (4943) 16 Orig Print D/T: S: 09/28/2020 (1309) PAGE 2 Signed ReportPROTHROMBIN [id number] 13:29:00 Test Item Value Reference Range Interpretation Comments PT PATIENT (test code = PTP) 10.6 SECONDS 9.3-12.9 N INTERNATIONAL NORMAL RATIO 0.95 INR Unit 0.8-1.2 N (test code = INR) THROMBOPLASTIN TIME [id number] 13:29:00 Test Item Value Reference Range Interpretation Comments THROMBOPLASTIN TIME PARTIAL 28.0 SECONDS 26-35 N (test code = PTT) CBC W/AUTO [id number] 13:26:00 Test Item Value Reference Range Interpretation [...] code NO DIFF/SCN CRITERIA = MDIFF) POCT-GLUCOSE [id number] 10:22:00 Test Item Value Reference Range Interpretation Comments POC-GLUCOSE METER 102 mg/dL 70-110 TESTED AT [facility] (test code = [place] 1538) [address] MR, MRA, BRAIN, WITHOUT [id number] 09:32:00Reason for exam:->Ischemic Stroke EvaluationFINAL REPORT MRA Head CLINICAL HISTORY: Ischemic Stroke TECHNIQUE: MRA of the head utilizing 3-D rjdd-re-vektas technique, with 3-D reconstructions. COMPARISON: None FINDINGS: There is no evidence of intracranial aneurysm, focal stenosis, or major branch vessel occlusion. IMPRESSION: No evidence for a major [place] proximal branch vessel occlusion. MRA Neck CLINICAL HISTORY: Ischemic Stroke TECHNIQUE: MRA of the neck utilizing 2-D and 3-D smbc-jh-jicxwf technique, with3-D reconstructions. COMPARISON: None FINDINGS: The carotid arteries in the neck are patent including their bifurcations. There is antegrade flow in the vertebral arteries in the neck. IMPRESSION: No evidence of hemodynamically significant stenosis in the cervical carotid or vertebral arteries by NASCET criteria. Signed: Santos Winn Verified Date/Time: 08/21/2018 09:32:09 Reading Location:[facility] C013 Neuro Reading Room MR, MRA, NECK, WITHOUT IV [id number] 09:32:00Reason for exam:->Ischemic Stroke EvaluationFINAL REPORT MRA Head CLINICAL HISTORY: Ischemic Stroke TECHNIQUE: MRA of the head utilizing 3-D vrvl-vk-lrwvoz technique, with 3-D reconstructions. COMPARISON: None FINDINGS: There is no evidence of intracranial aneurysm, focal stenosis, or major branch vessel occlusion. IMPRESSION: No evidence for a major [place] proximal branch vessel occlusion. MRA Neck CLINICAL HISTORY: Ischemic Stroke TECHNIQUE: MRA of the neck utilizing 2-D and 3-D ytif-mf-ebkmzu technique, with 3-D reconstructions. COMPARISON: None FINDINGS: The carotid arteries in the neck are patent includingtheir bifurcations. There is antegrade flow in the vertebral arteries in the neck. IMPRESSION: No evidence of hemodynamically significant stenosis in the cervical carotid or vertebral arteries by NASCET criteria. Signed: Santos Winn Verified Date/Time: 08/21/2018 09:32:09 Reading Location: [facility] C013V Neuro Reading Room MR, BRAIN, WITHOUT [id number] 09:25:00Reason for exam:->Ischemic Stroke EvaluationFINAL REPORT MRI Brain without contrast Clinical History: Stroke Technique: MRIof the brain utilizing axial T2, FLAIR, GRE, [...] Verified Date/Time: 08/21/2018 09:25:25 Reading Location: [address] Neuro Reading Room POCT-GLUCOSE [id number] 21:26:00 Test Item Value Reference Range Interpretation Comments POC-GLUCOSE METER 119 mg/dL 70-110 H TESTED AT [place] [address] ([facility]) (test code = KIRK[place] Miguel [place] [address]) [address] POCT-GLUCOSE [id number] 18:03:00 Test Item Value Reference Range Interpretation Comments POC-GLUCOSE METER 119 mg/dL 70-110 H TESTED AT [place] [address] ([facility]) (test code = AYLIN Rivera [facility] 1538) [address] POCT-GLUCOSE [id number] 12:39:00 Test Item Value Reference Range Interpretation Comments POC-GLUCOSE METER 120 mg/dL 70-110 H TESTED AT [place] [address] ([facility]) (test code = AYLIN Rivera [facility] 1538) [address] RAD, CHEST, 1 VIEW, NON [id number] 12:04:00Reason for exam:->To Locate Heart Device (Pacemaker)Should [...] clear. No effusion. No pneumothorax.Heart and mediastinum: Unremarkable.Sandip tional findings: None. Signed: JR Garcia Robert MDReport Verified Date/Time: 08/20/2018 12:04:06 Reading Location: [facility] Radiology Reading Room -GLUCOSE [id number] 09:17:00 Test Item Value Reference Range Interpretation Comments POC-GLUCOSE METER 121 mg/dL 70-110 H [facility] AT [place] [address] [facility] (test code = [facility] 1538) [address] BASIC METABOLIC [id number] 06:56:00 Test Item Value Reference Range Interpretation [...] NOT APPLICABLE FOR DIALYSIS PATIEN TS. POCT-GLUCOSE [id number] 21:09:00 Test Item Value Reference Range Interpretation Comments POC-GLUCOSE METER 109 mg/dL 70-110 TESTED AT [facility] 6720 (BEAKER) (test code = [facility] 1538) [address] POCT-GLUCOSE [id number] 17:15:00 Test Item Value Reference Range Interpretation Comments POC-GLUCOSE METER 117 mg/dL 70-110 H TESTED AT [place] [address] (BEAKER) (test code = [place] 1538) [address] VITAMIN B12 AND [id number] 06:39:00 Test Item Value Reference Range Interpretation Comments VITAMIN B12 (BEAKER) (test code = 524 pg/mL 213-816 774) FOLATE (BEAKER) (test code = 362) 13.5 ng/mL >=7.0 BASIC METABOLIC [id number] 05:48:00 Test Item Value Reference Range Interpretation [...] S NOT APPLICABLE FOR DIALYSIS PATIEN TS. [id number] 15:42:00 Test Item Value Reference Range Interpretation Comments RPR SCREEN (BEAKER) (test code = Nonreactive Nonreactive 420) HEMOGLOBIN [id number] 09:14:00 Test Item Value Reference Range Interpretation Comments HEMOGLOBIN A1C (BEAKER) (test code = 5.3 % 4.3-6.1 368) TSH/FREE T4 IF [id number] 04:49:00 Test Item Value Reference Range Interpretation Comments THYROID STIMULATING HORMONE 3.18 uIU/mL 0.35-4.94 (BEAKER) (test code = 772) BASIC METABOLIC [id number] 04:38:00 Test Item Value Reference Range Interpretation [...] NOT APPLICABLE FOR DIALYSIS PATIEN TS. LIPID [id number] 04:38:00 Test Item Value Reference Range Interpretation Comments TRIGLYCERIDES (BEAKER) 121 mg/dL Speci men slightly (test code = 540) hemolyzed CHOLESTEROL (BEAKER) 172 mg/dL Specime n slightly (test code = 631) hemolyzed HDL CHOLESTEROL (BEAKER) 36 mg/dL (test code = 976) LDL CHOLESTEROL 112 mg/dL CALCULATED (BEAKER) (test code = 633) Triglyceride Reference Range: Low Risk <150 Borderline 150-199 High Risk 200- 499 Very High Risk >=500Cholesterol Reference Range: Low Risk <200 Borderline 200-239 High Risk >240HDL Cholesterol Reference Range: Low Risk >=60 High Risk <40LDL Cholesterol Reference Range: Optimal <100 Near Optimal 100-129 Borderline 130-159 High 160-189 Very High >=190HEPATIC FUNCTION [id number] 04:38:00 Test Item Value Reference Range Interpretation [...] (test code = 413) AFB Culture and [id number] 13:24:00Specimen/Source: Wound/PACEMAKERCollected: 09/05/2017 19:45 Status: Final Last Updated: 11/01/2017 13:24 LOO-Vfpuy-Lfrggyftcqsd (Final) (Final) 09/07/17 No acid fast bacill seen on direct smear CultureResult (Final) (Final) 11/01/17 No growth of AFB at six (6) weeksFungus Culture with [id number] 12:12:00Specimen/Source: Wound/PACEMAKERCollected: 09/05/2017 19:45 Status: Final Last Updated: 10/22/2017 12:12 Fungal Smear Result (Final) (Final) 09/06/17 No yeast or hyphae seen Culture Result (Final) (Final) 10/22/17 No fungus isolated at 6 weeks Culture, Blood [id number] 08:23:00Specimen: BloodCollected: 09/04/2017 20:30 Status: Final Last Updated: 09/10/2017 08:23 Culture Result (Final) (Final) No Growth After 5 DaysCulture, Blood [id number] 08:23:00Specimen: BloodCollected: 09/04/2017 20:15 Status: Final Last Updated: 09/10/2017 08:23 Culture Result (Final) (Final) No Growth After 5 DaysCulture, Wound Surgical 2017-09-08 08:52:00Specimen: WoundCollected: 09/05/2017 19:45 Status: Final Last Updated: 09/08/2017 08:52 Gram Stain (Final) (Final) 09/06/17 No organisms seen, Few WBC's Culture Result (Final) (Final) 09/08/17 Anaerobic culture:No anaerobes isolated at 3 days Isolate (Final) (Final) 09/07/17 Few Staph-coag positive Iso late Staph-coag positive JERMAINE (mcg/ml) Amoxicillin/Clav (AUG)<=4/2 Susceptible Ampicillin (AM) >8 Resistant Ampicillin/Sulb (A/S) <=8/4 Susceptible Cefazolin (CFZ) <=4 Susceptible Ceftriaxone (PERENNIAL HOUSE MANAGER) <=4 Susceptible Chloramphenicol (C) <=8 Susceptible Ciprofloxacin (CP) <=1 Susceptible Clindamycin (CM) 0.5 Susceptible Erythromycin (E) <=0.25 Susceptible Gentamicin (GM) <=1 Susceptible Imipenem (IMP) <=4 Susceptible Levofloxacin (LEV) <=0.5 Susceptible Linezolid (LNZ) 4 Susceptible Oxacillin (OX1) 0.5 Susceptible Penicillin (P) >8 Resistant Rifampin (RA) <=1 Susceptible Tetracycline (TE) <=1 Susceptible Trimethoprim/Sulfa <=0.5/9.Susceptible (SXT) 5 Vancomycin (VA) 2 SusceptibleRenal Panel 2017-09-07 08:51:00 Test Item Value Reference Range Interpretation [...] by th ramin MDRD study and horace d be interpretedwith caution.eGFR Re sult Interpretation: eGFR > or = 60 is in t he Normal RangeeGF R < 60 may mean kidney diseaseeGFR < 1 5 may mean kidney failureRange s recommended by the National Kidney Foundation,http ://nkd ep.nih.gov CBC with [id number] 07:39:00 Test Item Value Reference Range Interpretation [...] code = ALYMPH) 1.7 K/cumm 0.5-4.6 N [place] Abs (test code = AMONO) 0.3 K/cumm 0.0-1.2 N Eos Abs (test code = AEOS) 0.29 K/cumm 0.00-0.74 N Baso Abs (test code = ABASO) 0.0 K/cumm 0.00-0.21 N Vancomycin, [id number] 12:33:00 Test Item Value Reference Range Interpretation Comments Melony Harman (test code = VANTR) 7.9 ug/mL 10.0-20.0 L Magnesium, [id number] 06:37:00 Test Item Value Reference Range Interpretation Comments Magnesium (test code = MG) 2.4 mg/dL 1.7-2.5 N Renal [id number] 06:29:00 Test Item Value Reference Range Interpretation [...] National Kidney Foundation,http ://nkd ep.nih.gov BHCG, Serum, [id number] 06:26:00 Test Item Value Reference Range Interpretation Comments Preg Qual [Se] (test code = BSHCG) Negative Negative N CBC with [id number] 06:24:00 Test Item Value Reference Range Interpretation [...] code = ALYMPH) 1.6 K/cumm 0.5-4.6 N [place] Abs (test code = AMONO) 0.4 K/cumm 0.0-1.2 N Eos Abs (test code = AEOS) 0.18 K/cumm 0.00-0.74 N Baso Abs (test code = ABASO) 0.0 K/cumm 0.00-0.21 N XR CHEST 1 [id number] 16:29:55XR CHEST 1 VIEWLOCATION: X85VJEALOFTIN: None.INDICATION: REVIEW PICC LINE PLACEMENTDISCUSSION:AP chest and [...] = TSH) 3.44 mIU/mL 0.270-4.200 N Lipid [id number] 05:47:00 Test Item Value Reference Range Interpretation Comments Cholesterol (test 160 mg/dL 0-200 N code = CHOL) Triglycerides (test 126 mg/dL 9-200 N code = TRIG) HDL (test code = 35 mg/dL 50-60 L HDL) Chol/HDL (test code 4.6 Ratio 0.0-4.4 H = CHOLPHDL) LDL, Calculated 100 0-130 N (NOTE)RISK O F HEART (test code = LDLC) DISEASEPu blished by Iceland[place] Heart AssociationAnal yte Optimal Boderl ine Increased RiskC HOL <200 200-239 >240TRI G <150 150-199 >200HD L Male: >60 <40HDL Fema le: >60 <50LDL <100 130-159 >160LDL NEAR OPTIMAL IS 100- 129 VLDL (test code = 25 mg/dL 5-40 N VLDL) LDL/HDL (test code = 3 LDLPHDL) Basic Metabolic [id number] 05:47:00 Test Item Value Reference Range Interpretation [...] the National Kidney Foundation,http ://nkd ep.nih.gov Magnesium, [id number] 05:47:00 Test Item Value Reference Range Interpretation Comments Magnesium (test code = MG) 2.3 mg/dL 1.7-2.5 N CBC with [id number] 05:36:00 Test Item Value Reference Range Interpretation [...] code = ALYMPH) 2.2 K/cumm 0.5-4.6 N [place] Abs (test code = AMONO) 0.3 K/cumm 0.0-1.2 N Eos Abs (test code = AEOS) 0.24 K/cumm 0.00-0.74 N Baso Abs (test code = ABASO) 0.0 K/cumm 0.00-0.21 N Partial Thromboplastin [id number] 21:26:00 Test Item Value Reference Range Interpretation Comments aPTT (test code = PTT) 29.00 seconds 24.39-37.25 N Prothrombin [id number] 21:26:00 Test Item Value Reference Range Interpretation Comments PT (test code = PT) 10.70 seconds 9.78-13.35 N INR (test code = INR) 0.95 Ratio 0.6-1.2 N Comprehensive Metabolic [id number] 21:23:00 Test Item Value Reference Range Interpretation [...] National Kidney Foundation,http ://nkd ep.nih.gov CBC with [id number] 21:16:00 Test Item Value Reference Range Interpretation [...] code = ALYMPH) 2.2 K/cumm 0.5-4.6 N [place] Abs (test code = AMONO) 0.4 K/cumm 0.0-1.2 N Eos Abs (test code = AEOS) 0.17 K/cumm 0.00-0.74 N Baso Abs (test code = ABASO) 0.1 K/cumm 0.00-0.21 N
[2022-05-06 19:27] LABS: Urine Blood 3+ (Negative); Urine Glucose Negative (Negative); Urine Protein Negative (Negative)
[2022-05-06 20:21] LABS: Absolute Lymphocytes (CBC) 1.9 K/uL (0.7-4.9); Hematocrit 39.9 % (36.0-45.0); Lymphocytes % 21.5 % (15.3-44.8); MCV 85.8 fL (80-100); MPV 7.9 fL (7.6-11.3); RBC Red Blood Cell Count 4.65 M/uL (3.86-4.86)
--- NOTE | 2022-05-06 20:33 | RAD REPORT ---
EXAM DESCRIPTION: CT - Abdomen Pelvis Wo Contrast - 05/06/2022 8:22 pm CLINICAL HISTORY: RLQ abdominal pain COMPARISON: [facility] Protocol dated 05/18/2021 TECHNIQUE: Axial [address] imaging of the abdomen and pelvis was performed without IV contrast. No IV contrast was given because of allergy, abnormal renal function, patient refusal or physician re quest. No oral contrast. All CT scans are performed using dose optimization technique as appropriate and may include automated exposure control or mA/KV adjustment according to patient size. FINDINGS: No suspicious findings in the lung bases. The liver, spleen and pancreas show no suspicious findings on non-contrast imaging. Cholecystectomy c lips are present. No abnormal biliary tree dilatation. No hydronephrosis or suspicious renal mass. Punctate nonobstructing calyx calculi present in each kid ray. No ureteral calculi. Slight fullness of the right renal pelvis matches the 2020 study. No signif icant adrenal finding. Isodense renal masses and pyelonephritis cannot be excluded in the absence of IV contrast. The urinary bladder is without significant finding. Pelvic floor phleboliths present. Ut erus is absent. Ovaries are absent or atrophic, possibly obscured by adjacent bowel. No dilated bowel loops or bowel wall thickening. No appendicitis findings. No free air, free fluid or inflammatory stranding. No hernia, mass or bulky lymphadenopathy. No suspicious bony findings. IMPRESSION: Non-contrast enhanced CT abdomen and pelvis imaging show no acute or emergent finding. 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 Isodense masses and pyelone phritis are not excluded on noncontrast imaging. Full assessment is limited is the absence of IV contrast.
[2022-05-06 20:54] LABS: Albumin 3.6 g/dL (3.4-5.0); Bilirubin Total 0.1 mg/dL (0.2-1.0); Potassium 4.2 mmol/L (3.5-5.1); Protein, Total 7.6 g/dL (6.4-8.2)
[2022-05-06] MEDS ORDERED: HYDROMORPHONE HCL 0.5 MG/0.5 ML INJ ONE (21:23)
[2022-05-06] MEDS ORDERED: ONDANSETRON 4 MG/2 ML VIAL ONE (21:24)
--- NOTE | 2022-05-06 22:09 | ER ---
Nurse's Notes [facility] Name: Jenni Draper Age: 41 yrs Sex: Female : 1980 Arrival Date: 05/06/2022 Time: 18:24 Bed 4 Private MD: Diagnosis: Abdominal pain, unspecified;Nausea Presentation: 05/06 19:02 Chief complaint: Patient states: ABD pain near umbilicus that radiates to back, NV, vg1 denies diarrhea, burning upon urination or urine frequency. Last BM was this morning. Coronavirus screen: Vaccine status: Patient reports receiving the 2nd dose of the covid vaccine. Client denies travel out of the [place] in the last 14 days. Ebola Screen: Patient denies exposure to infectious person. Patient denies travel to an Ebola-affected area in the 21 days before illness onset. Initial Sepsis Screen: Does the patient meet any 2 criteria? HR > 90 bpm. Does the patient have a suspected source of infection? No. Patient's initial sepsis screen is negative. Risk Assessment: Do you want to hurt yourself or someone else? Patient reports no desire to harm self or others. Onset of symptoms was May 06, 2022. 19:02 Method Of Arrival: Wheelchair vg1 19:02 Acuity: LYUBOV 3 vg1 Triage Assessment: 19:05 General: Appears uncomfortable, Behavior is cooperative, crying. Pain: Complains of vg1 pain in umbilical area, posterior aspect of right lateral abdomen and right upper quadrant Pain currently is 10. out of 10 on a pain scale. Neuro: Level of Consciousness is awake, alert, obeys commands, Oriented to person, place, time, situation. GI: Reports lower abdominal pain, nausea, vomiting. 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 LMP N/A - Hysterectomy vg1 Historical: - Allergies: 19:05 Adhesives; vg1 19:05 Aspirin; vg1 19:05 Bactrim; vg1 19:05 Benadryl; vg1 19:05 cefixime; vg1 19:05 Cipro IV; vg1 19:05 Clindamycin; vg1 19:05 coconut oil; vg1 19:05 Detrol; vg1 19:05 Diltiazem; vg1 19:05 Doxycycline; vg1 19:05 FISH PRODUCT DERIVATIVES; vg1 19:05 GABAPENTIN; vg1 19:05 Hydrocodone-Acetaminophen; vg1 19:05 Iodine; vg1 19:05 ivabradine; vg1 19:05 Latex, Natural Rubber; vg1 19:05 Morphine; vg1 19:05 PENICILLINS; vg1 19:05 Seroquel; vg1 19:05 Sulfa (Sulfonamide Antibiotics); vg1 19:05 tramadol; vg1 - PMHx: 19:05 Asthma; Atrial fibrillation; CVA; Depression; DVT; Hypertensive disorder; Migraine; vg1 Seizure; TIA; - Immunization history:: Client reports receiving the 2nd dose of the Covid vaccine. - Social history:: Smoking status: Patient denies any tobacco usage or history of. Screenin:04 Abuse screen: Denies threats or abuse. Nutritional screening: No deficits noted. vc1 Tuberculosis screening: No symptoms or risk factors identified. Fall Risk None identified. Assessment: 20:19 Reassessment: Patient is alert, oriented x 3, equal unlabored respirations, skin vc1 warm/dry/pink. See triage assessment. Neuro: Level of Consciousness is awake, alert, obeys commands, Oriented to person, place, time, situation, Appropriate for age. 21:29 Reassessment: Patient and/or family updated on plan of care and expected duration. Pain vc1 level reassessed. Patient is alert, oriented x 3, equal unlabored respirations, skin warm/dry/pink. Vital Signs: 19:02 BP 129 / 82; Pulse 102; Resp 18; Temp 99.1(O); Pulse Ox 98% on R/A; Weight 58.97 kg; vg1 Height 4 ft. 11 in. (149.86 cm); Pain 10/10; 20:00 BP 118 / 88; Pulse 88; Resp 18; Pulse Ox 97% ; vc1 21:29 BP 109 / 83; Pulse 78; Resp 18; Pulse Ox 97% ; vc1 22:30 BP 112 / 80; Pulse 72; Resp 18; Pulse Ox 98% on R/A; vc1 19:02 Body Mass Index 26.26 (58.97 kg, 149.86 cm) vg1 ED Course: 18:24 Patient arrived in ED. rg4 19:05 Triage completed. vg1 19:05 Arm band placed on. vg1 19:17 Philip Romeo DO is Attending Physician. ms3 20:00 Patient has correct armband on for positive identification. Bed in low position. Pulse vc1 ox on. NIBP on. 20:00 Inserted saline lock: 22 gauge in left forearm, using aseptic technique. Blood vc1 collected. 20:09 Louann Dillard RN is Primary Nurse. vc1 20:24 CT Abd/Pelvis - Without Contrast In Process Unspecified. EDMS 22:07 Sawyer Dukes DO is Referral Physician. ms3 22:07 Miguel Mariscal MD is Referral Physician. ms3 22:07 Referral Physician role handed off by Miguel Mariscal MD ms3 22:07 Linus Boone MD is Referral Physician. ms3 23:04 No provider procedures requiring assistance completed. IV discontinued, intact, vc1 bleeding controlled, No redness/swelling at site. Pressure dressing applied. Administered Medications: 21:20 Drug: Dilaudid (HYDROmorphone) 0.5 mg Route: IVP; Site: left forearm; vc1 22:00 Follow up: Response: No adverse reaction; Marked relief of symptoms; Pain is decreased vc1 21:21 Drug: Zofran (Ondansetron) 4 mg Route: IVP; Site: left forearm; vc1 22:00 Follow up: Response: No adverse reaction; Marked relief of symptoms; Nausea is decreasedvc1 Medication: 23:05 VIS not applicable for this client. vc1 Outcome: 22:09 Discharge ordered by . ms3 23:05 Discharged to home ambulatory. vc1 23:05 Condition: good 23:05 Discharge instructions given to patient, Instructed on discharge instructions, follow up and referral plans. medication usage, Demonstrated understanding of instructions, follow-up care, medications, Prescriptions given X 1. 23:05 Patient left the ED. vc1 Signatures: Dispatcher [employer] WILLYNM Rosalinda Reyes rg4 Lucinda Reyes, RN RN vg1 Philip Romeo DO DO ms3 Louann Dillard, LAUREL RN vc1 Corrections: (The following items were deleted from the chart) 20:10 20:09 Inserted saline lock: 22 gauge in left forearm, using aseptic technique. Blood vc1 collected. vc1
--- NOTE | 2022-05-06 22:09 | EDPHYS ---
Physician Documentation [facility] Name: Jenni Draper Age: 41 yrs Sex: Female : 1980 Arrival Date: 05/06/2022 Time: 18:24 Bed 4 Private MD: ED Physician Philip Romeo HPI: 05/06 21:36 This 41 yrs old Female presents to ER via Wheelchair with complaints of Back Pain, ms3 Abdominal Pain. 21:37 The patient presents with abdominal pain right lower quadrant. Onset: The ms3 symptoms/episode began/occurred acutely, yesterday. Associated signs and symptoms: Pertinent positives: nausea and vomiting, Pertinent negatives: dysuria, fever. The symptoms are described as sharp. Modifying factors: The symptoms are alleviated by nothing, the symptoms are aggravated by movement. Severity of pain: At its worst the pain was severe in the emergency department the pain is unchanged is a . 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 LMP N/A - Hysterectomy vg1 Historical: - Allergies: 19:05 Adhesives; vg1 19:05 Aspirin; vg1 19:05 Bactrim; vg1 19:05 Benadryl; vg1 19:05 cefixime; vg1 19:05 Cipro IV; vg1 19:05 Clindamycin; vg1 19:05 coconut oil; vg1 19:05 Detrol; vg1 19:05 Diltiazem; vg1 19:05 Doxycycline; vg1 19:05 FISH PRODUCT DERIVATIVES; vg1 19:05 GABAPENTIN; vg1 19:05 Hydrocodone-Acetaminophen; vg1 19:05 Iodine; vg1 19:05 ivabradine; vg1 19:05 Latex, Natural Rubber; vg1 19:05 Morphine; vg1 19:05 PENICILLINS; vg1 19:05 Seroquel; vg1 19:05 Sulfa (Sulfonamide Antibiotics); vg1 19:05 tramadol; vg1 - PMHx: 19:05 Asthma; Atrial fibrillation; CVA; Depression; DVT; Hypertensive disorder; Migraine; vg1 Seizure; TIA; - Immunization history:: Client reports receiving the 2nd dose of the Covid vaccine. - Social history:: Smoking status: Patient denies any tobacco usage or history of. ROS: 21:37 Constitutional: Negative for fever, and chills. Neck: Negative for injury, pain, and ms3 swelling, Cardiovascular: Negative for chest pain, and palpitations. Respiratory: Negative for shortness of breath, cough, wheezing, and pleuritic chest pain. 21:37 MS/Extremity: Negative for injury and deformity, Skin: Negative for injury, rash, and discoloration, Psych: Negative for depression, anxiety, suicide ideation, homicidal ideation, and hallucinations. 21:37 Abdomen/GI: Positive for nausea, vomiting. 21:37 All other systems are negative. Exam: 21:37 Constitutional: This is a well developed, well nourished patient who is awake, alert, ms3 and in no acute distress. Head/Face: Normocephalic, atraumatic. Neck: Trachea midline, no cervical lymphadenopathy. Supple, full range of motion without nuchal rigidity, or vertebral point tenderness. No Meningismus. Chest/axilla: Normal chest wall appearance and motion. Nontender with no deformity. Cardiovascular: Regular rate and rhythm with a normal S1 and S2. No gallops, murmurs, or rubs. Normal PMI, no JVD. No pulse deficits. Respiratory: Lungs have equal breath sounds bilaterally, clear to auscultation and percussion. No rales, rhonchi or wheezes noted. No increased work of breathing, no retractions or nasal flaring. Back: No spinal tenderness. No costovertebral tenderness. Full range of motion. Skin: Warm, dry with normal turgor. Normal color with no rashes, no lesions, and no evidence of cellulitis. MS/ Extremity: Pulses equal, no cyanosis. Neurovascular intact. Full, normal range of motion. Psych: Awake, alert, with orientation to person, place and time. Behavior, mood, and affect are within normal limits. 21:37 Abdomen/GI: Inspection: abdomen appears normal, Bowel sounds: normal, Palpation: moderate abdominal tenderness, in the right lower quadrant. Vital Signs: 19:02 BP 129 / 82; Pulse 102; Resp 18; Temp 99.1(O); Pulse Ox 98% on R/A; Weight 58.97 kg; vg1 Height 4 ft. 11 in. (149.86 cm); Pain 10/10; 20:00 BP 118 / 88; Pulse 88; Resp 18; Pulse Ox 97% ; vc1 21:29 BP 109 / 83; Pulse 78; Resp 18; Pulse Ox 97% ; vc1 22:30 BP 112 / 80; Pulse 72; Resp 18; Pulse Ox 98% on R/A; vc1 19:02 Body Mass Index 26.26 (58.97 kg, 149.86 cm) vg1 MDM: 19:53 Patient medically screened. ms3 21:37 Differential diagnosis: appendicitis, diverticulitis, non-specific abd pain. ms3 22:09 Data reviewed: vital signs, nurses notes, lab test result(s), radiologic studies, and ms3 as a result, I will discharge patient. Counseling: I had a detailed discussion with the patient and/or guardian regarding: the historical points, exam findings, and any diagnostic results supporting the discharge/admit diagnosis, lab results, radiology results, the need for outpatient follow up, to return to the emergency department if symptoms worsen or persist or if there are any questions or concerns that arise at home. Special discussion: Based on the patient's Hx, exam, and Dx evaluation, there is no indication for emergent surgery or inpatient Tx. It is understood by the patient/guardian that if the Sx's persist or worsen they need to return immediately for re-evaluation. 05/06 19:11 Order name: CBC with Diff; Complete Time: 21:04 vg1 05/06 19:11 Order name: CMP; Complete Time: 21:04 vg1 05/06 19:11 Order name: Lipase; Complete Time: 21:04 vg1 05/06 19:28 Order name: Urine Dipstick-Ancillary; Complete Time: 19:56 EDMS 05/06 19:28 Order name: Urine --Ancillary (enter results); Complete Time: 19:56 mw2 05/06 19:57 Order name: CT Abd/Pelvis - Without Contrast; Complete Time: 21:04 ms3 05/06 19:11 Order name: IV Saline Lock; Complete Time: 20:09 vg1 05/06 19:11 Order name: Labs collected and sent; Complete Time: 20:09 vg1 05/06 21:11 Order name: PO challenge; Complete Time: 22:07 ms3 Administered Medications: 21:20 Drug: Dilaudid (HYDROmorphone) 0.5 mg Route: IVP; Site: left forearm; vc1 22:00 Follow up: Response: No adverse reaction; Marked relief of symptoms; Pain is decreased vc1 21:21 Drug: Zofran (Ondansetron) 4 mg Route: IVP; Site: left forearm; vc1 22:00 Follow up: Response: No adverse reaction; Marked relief of symptoms; Nausea is decreasedvc1 Disposition Summary: 05/06/22 22:09 Discharge Ordered Location: Home ms3 Condition: Stable ms3 Diagnosis - Abdominal pain, unspecified ms3 - Nausea ms3 Followup: ms3 - With: - When: 2 - 3 days - Reason: Recheck today's complaints Followup: ms3 - With: - When: 2 - 3 days - Reason: Recheck today's complaints Followup: ms3 - With: Linus Boone MD - When: 2 - 3 days - Reason: Recheck today's complaints Discharge Instructions: - Discharge Summary Sheet ms3 - Abdominal Pain, Adult ms3 Forms: - Medication Reconciliation Form ms3 - Thank You Letter ms3 - Antibiotic Education ms3 - Prescription Opioid Use ms3 Prescriptions: - Zofran 4 mg Oral Tablet - take 1 tablet by ORAL route every 12 hours As needed; 20 tablet; Refills: 0, ms3 Product Selection Permitted Signatures: Dispatcher [employer] Lucinda Mancini RN RN vg1 Philip Romeo DO DO ms3 Louann Dillard RN RN vc1
[2022-05-07 00:41] VITALS: TEMP 99.1
[2022-05-07 00:54] VITALS: BP 112/80; O2SAT 98
== END 2022-05-06 23:05 | disposition home or self-care (01) ==
LOC: ER 18:23
DX: R10.31 Right lower quadrant pain (principal); R11.2 Nausea with vomiting, unspecified; I10 Essential (primary) hypertension; Z88.1 Allergy status to other antibiotic agents; Z88.3 Allergy status to other anti-infective agents; Z88.5 Allergy status to narcotic agent; Z88.6 Allergy status to analgesic agent; Z91.040 Latex allergy status; Z91.048 Other nonmedicinal substance allergy status
CPT/HCPCS: 85025; 36415; 81025; 81003; 83690; 80053; 74176; 96375; 96374; 99284; J1170; J2405

== ENCOUNTER 2022-05-20 20:34 | Emergency (ER) | payer OTHER ==
--- OUTSIDE RECORDS SUMMARY | 2022-05-20 20:47 | XMS REPORT | Continuity of Care Document ---
:[address] [facility] t Address [address] [place] [address] Support Name Relationship Address Phone LINUS RIVERA [address] [phone] [place] [address] JET MARTY P [address] [facility] 3 [phone] [place] [address] LINUS RIVERA Unavailable [phone] Isatu Rivera Mother [address] [place] [address] JetAngeln Child Unavailable Marty Bob Significant Other [address] [place] [address] Marty Bob Significant Other [address] [phone] [place] [address] KIMBERLEE LARSEN, AUREA Waters Emergency Provider [address] [facility] [address] [place] [address] CAROLINE LARSEN, SILVERIO Primary Care Physician [address] [facility] [address] [place] [address] BRENDAN LINDQUIST MD Emergency Provider [address] [facility] [phone] [place] [address] MD SILVERIO VELAZQUEZ Primary Care Physician [address] [facility] [place] [address] MD DARCIE KUMARI Admitting Provider [address] [place] [address] MD BAILEY HART Emergency Provider [address] [phone] [place] [address] Korin Chaudhary Spouse Unavailable Elie Bauer Unavailable / [phone] MARTY CHAUDHARY Unavailable [address] [place] [address] MARTY CHAUDHARY [place] Significant [facility] [address] Unavailable [place] [phone] Care Team Providers Name Role Phone SILVERIO VELAZQUEZ MIMA Primary Care Physician Unavailable WILMER VERA Attending Clinician Unavailable Linus Boone Attending Clinician Unavailable CARITO TRINIDAD Attending Clinician Unavailable EDMUNDO ROMEO Attending Clinician Unavailable Tucker Guy DO Attending Clinician Doctor Unassigned, [place] Attending Clinician Unavailable KYAW STACK Attending Clinician Unavailable FLOR Attending Clinician Unavailable Ann Salcido MA Attending Clinician Unavailable Antonio LARSEN, Hector Ochoa Attending Clinician Veda Bolanos MD Attending Clinician Matt Berkowitz MD Attending Clinician Wilmer Vera MD Attending Clinician Unavailable JOSE GALVEZ Attending Clinician Unavailable LYLY SUE Attending Clinician Unavailable WILMER VERA Admitting Clinician Unavailable KYAW STACK Admitting Clinician Unavailable FLOR Admitting Clinician Unavailable MATT BERKOWITZ Admitting Clinician Unavailable JOSE GALVEZ Admitting Clinician Unavailable LYLY SUE Admitting Clinician Unavailable Payers Payer Name Policy Type Policy Number Effective Expiration Source Date Date GENERIC MEDICAID HMO [id number] 2011 00:00:00 [facility] [id number] 2022 00:00:00 [facility] [id number] 2011 Met amarilys [place] 00:00:00 Hospital [id number] 2010- PresentHMO SOLORIO [id number] [address] [facility] MEDICAIDMEDICAID 00:00:00 Medical [id number] 018-Present Problems Condition Condition Condition Status Onset Resolution Last Treating Co mments Source Name Details Category Date Date Treatment Clinician Date Left-sided Left-sided Disease Active U nivers weakness weakness 7-23 ity of 00:00: [place] 00 Medical Branch History of History of [...] Disease Active [facility] weakness weakness 5-21 [facility] 00:00: [facility] 00 [place] Received Received Disease Active [facility] tissue tissue 5-21 [facility] plasminoge plasminoge 00:00: Pa dical n n 00 Center activator activator (t-PA) (t-PA) less than less than 24 hours 24 hours prior to prior to arrival arrival Acute Acute Disease Active [facility] ischemic ischemic 5-20 [facility] stroke stroke 00:00: 00 Center Atypical Atypical Disease Active Unive rs chest pain chest pain 4-20 it y of 00:00: [place] Medical Branch Chest pain Chest pain Disease Active [facility] in adult in adult 4-20 [facility] 00:00: [facility] 00 [place] Inappropri Inappropri Disease Active 2019-09 U nivers ate sinus ate sinus 1-04 ity of tachycardi [place]cardi [place] Functional Functional Disease Active U nivers neurologic neurologic 8-18 it y of al symptom al symptom [place] disorder disorder 00 Medica l with with Branch weakness weakness or or paralysis paralysis Syncope Syncope Disease Active Univers 2-04 ity of 00:00: [place] 00 [facility] Branch PVT PVT Disease Active Univers (paroxysma (paroxysma 2-04 it y of l l 00:00: [place] ventricula ventricula 00 Pa dical r r Branch tachycardi tachycardi a) a) Digoxin Digoxin Disease Active Univers toxicity toxicity 2-04 ity of 00:00: [place] [facility] Branch AN AN Disease Active 2018-09 Univers (dyspnea (dyspnea 2-01 ity of on on 00:00: [place] exertion) exertion) 00 [facility] Seizure Seizure Disease Active 2018-[address] [facility] disorder disorder 2- [facility] 00:00: Medical 00 Center Mitral Mitral Disease Active Univers valve valve 8 ity of regurgitat regurgitat [place] 00 Medical [facility] Excessive Excessive Disease Active Uni vers anticoagul anticoagul 8 it y of ation ation 00:00: [place] 00 Medical Branch Deep vein Deep vein Disease Active Uni vers thrombosis thrombosis 04-29 it y of of lower of lower 00:00: [place] extremity extremity 00 [facility] Anxiety Anxiety Disease Active [facility] disorder disorder 04-29 [facility] 00:00: Medical 00 Center Asthma Asthma Disease Active [facility] 04-29 [facility] 00:[facility]: Medical 00 Center Paresthesi Paresthesi Disease Active 2017-09 C HI [...] Added automatic ally from request for surgery [id number] Abdominal Abdominal Disease Active 2017-09 Overview: Univers pain, pain, 0-19 Formattin ity of unspecifie unspecifie 00:00: g of this [place] d d 00 note Medical abdominal abdominal might be Br anch location location different from the original. Added automatic ally from request for surgery [id number] Nausea and Nausea and Disease Active 2017-09 Overview : Univers vomiting, vomiting, 0-19 Formattin i ty of intractabi intractabi 00:00: g of this [place] lity of lity of 00 note Medical vomiting vomiting might be Bran ch not not different specified, specified, from the unspecifie unspecifie original. d vomiting d vomiting Added type type automatic ally from request for surgery [id number] Non-cardia Non-cardia Disease Active U nivers c chest c chest 8 ity of pain pain 00:00: [place] [facility] Essential Essential Disease Active Uni vers hypertensi hypertensi 04-27 it y of on on 00:00: Medical Branch Pacemaker Pacemaker Disease Active Uni vers 8 ity of 00:00: Medical Branch PAF PAF Disease Active [facility] (paroxysma (paroxysma 04-27 Jeanie kes l atrial l atrial 00:00: Medica l fibrillati fibrillati 00 Ce nter on) on) History of History of Disease Active 2016-09 U nivers cardiac cardiac 10-23 ity of pac[place] pac[place] situ [place] Tachycardi Tachycardi Disease Active U nivers a, a, 9- ity of unspecifie unspecifie [place] Elevated Elevated Disease Active 2013-09 Unive rs liver liver 0-29 ity of enzymes enzymes 00:00: Medical Branch Pseudoseiz Pseudoseiz Disease Active U [...] different from the original. ICD10 Diagnosis Term Digital Engineer Utility Hypoglycem Hypoglycem Disease Active 2012-09 Overview : Univers ia ia 10-21 Formattin ity of 00:00: g of this [place] note Medical might be Branch different from the original. ICD10 Diagnosis Term Digital Engineer Utility A-fib A-fib Disease Active [facility] Cerebrovas Cerebrovas Disease Resolve 2021-02-12 2021-02-[address] cular cular d 00:00:00 11:42:08 [facility] accident accident Medica l (CVA), (CVA), Center unspecifie unspecifie d d mechanism mechanism Allergies, Adverse Reactions, Alerts Allergy Allergy Status Severity Reaction(s) Onset Inactive Treating Comm ents Source Name Type Date Date Clinician Hydrocod Propensi Active Hives 0 Univer s one ty to 9-10 ity of adverse 00:00: [place] reaction 00 Medical s Branch HYDROCOD DRUG Active Hives 2020-0 Univers ONE INGREDI 9-10 ity of 00:00: [place] 00 Medical Branch Penicill DA Active SV 2020-0 [facility] [...] 2020-0 [facility] 1-04 [place] 00:00: d 00 [facility] Center cephalex DA Active SV 2020-0 [facility] in 1-04 [place] 00:00: d 00 Medical Center cefixime DA Active MO 2020-0 [facility] 1-04 [place] 00:00: d 00 [facility] Center doxycycl DA Active SV 2020-0 [...] 00 Medical Center tramadol DA Active SV 2021-0 [facility] 1-04 [place] [...] [facility] te - [place] 00:00: d 00 Medical Center [...] iodine DA Active MO RASH 2020-0 [facility] -04 [place] 00:00: d 00 Medical Center morphine DA Active SV ANAPHYLAXIS 2020-0 [facility] SHOCK - [place] 00:00: d 00 Medical Center aspirin DA Active SV ANAPHYLAXIS 2020-0 [facility] SHOCK - [place] 00:00: d 00 Medical Center cephalex DA Active SV HIVES 2020-0 [facility] in - [place] 00:00: d 00 Medical Center cefixime DA Active MO HIVES 1-0 [facility] 1-04 [place] 00:00: d 00 Medical Center doxycycl DA Active SV RASH 2020-0 [facility] ine -04 [place] 00:00: d 00 Medical Center clindamy DA Active MO RASH 1-0 [facility] stephan - [place] 00:00: d 00 Medical Center sulfamet DA Active MO RASH 2020-0 [facility] hoxazole - [place] 00:00: d 00 Medical Center trimetho DA Active MO RASH 2020- [facility] prim 1-04 [place] 00:00: d 00 Medical Center ciproflo DA Active SV HIVES [facility] xacin 1-04 [place] 00:00: d 00 Medical Center adhesive DA Active SV BLISTERS [facility] tape 1-04 [place] 00:00: d 00 Medical Center tramadol DA Active SV HIVES [facility] 1-04 [place] 00:00: d 00 [facility] gabapent DA Active SV RASH [facility] in 1-04 [place] 00:00: d 00 [facility] diltiaze DA Active SV SHORTNESS OF HC A m BREATH 1-04 [place] 00:00: d [facility] diphenhy DA Active SV RASH [facility] dramine 1-04 [place] 00:00: d 00 [facility] topirama DA Active SV HIVES/MEMORY HC A te LOSS 1-04 [place] 00:00: d [facility] levoflox DA Active SV HIVES [facility] acin 1-04 [place] 00:00: d 00 [facility] quetiapi DA Active MO RASH [facility] ne 1-04 [place] 00:00: d 00 [facility] tolterod DA Active MO RASH 2020- [facility] ine 1-04 [place] 00:00: d 00 [facility] latex DA Active SV BLISTERS 2020- [facility] 1-04 [place] 00:00: d 00 [facility] ivabradi DA Active MO RASH 2020- [facility] ne 1-04 [place] 00:00: d 00 Medical [place] coconut FA Active MO RASH 2020- [facility] [...] that medicine Diltiaze Propensi Active Shortness Of 0 Methodi m ty to Breath 905 st adverse 00:00: Hospita reaction 00 l s to drug Cephalex Drug Active Anaphylaxis 2018-0 Uni vers in Allergy 8-05 ity of 00:00: [place] 00 Medical Branch Levoflox Drug Active Anaphylaxis 2018-0 Uni vers acin Allergy 805 ity of 00:00: [place] 00 Medical Branch CEPHALEX DRUG Active High Anaphylaxis 2018-0 Uni vers IN INGREDI 8-05 ity of 00:00: [place] 00 Medical Branch FISH Drug Active High Anaphylaxis 2018-0 Unive rs CONTAINI Class 8-05 ity of NG 00:00: [place] PRODUCTS 00 Medical Branch LEVOFLOX DRUG Active High Anaphylaxis 2018-0 Uni vers ACIN INGREDI 8-05 ity of 00:00: [place] 00 Medical Branch DOXYCYCL DRUG Active Rash 2018-0 Univers INE INGREDI 8-05 ity of 00:00: [place] 00 Medical Branch CEFIXIME DRUG Active Low Rash 2019-0 Univers INGREDI 8-05 ity of 00:00: [place] 00 Medical Branch Cefixime Propensi Active Rash 2019-0 Univer s ty to 8-05 ity of adverse 00:00: [place] reaction 00 Medical s Branch Doxycycl Propensi Active Rash 2019-0 Univer s ine ty to 8-05 ity of adverse 00:00: [place] reaction 00 Medical s Branch Fish Propensi Active Anaphylaxis 2019-0 Family Uni vers Containi ty to 805 history ity of ng adverse 00:00: of [place] Products reaction 00 allergic Medi blane s reaction. Branch Doxycycl Propensi Active Rash 2018-0 Method i ine ty to 805 st adverse 00:00: Hospita reaction 00 l s to drug Levoflox Propensi Active Anaphylaxis 2019-0 M ethodi acin ty to 05 st adverse 00:00: Hospita reaction 00 l s to drug Cephalex Propensi Active Anaphylaxis 2019-0 M ethodi [...] SULFAMET Allergy Active High Anaphylaxis 2017-09 [facility] HOXAZOLE 10-17 -TRIMETH 00:00: OPRIM 00 GABAPENT Allergy Active High Sob 2017-09 [facility] IN 10-17 00:00: 00 IODINE Allergy Active High Rash 2017-09 [facility] AND 10-17 IODIDE 00:00: CONTAINI 00 NG PRODUCTS MORPHINE Allergy Active High Anaphylaxis 2017-09 SL EH 10-17 00:00: 00 PENICILL Allergy Active High Anaphylaxis 2017-09 [facility] INS 10-17 00:00: 00 DIPHENHY Allergy Active N\\T\\V 2017-09 SLE DRAMINE 10-17 HCL 00:00: 00 CIPROFLO Allergy Active 2017-09 SLE XACIN 10-17 00:00: 00 CODEINE Allergy Active 2017-09 [facility] 10-17 00:00: 00 QUETIAPI Allergy Active 2017-09 [facility] NE 10-17 00:00: 00 ADHESIVE Allergy Active Low Rash 2017-09 [facility] TAPE 10-17 00:00: 00 Latex Propensi Active Rash 2017-09 blisters [facility] [...] 10-17 [facility] adverse 00:00: Medical reaction 00 [place] s Tolterod Propensi Active Rash 2017-[address] ine ty to 10-17 [facility] adverse 00:00: Medical reaction 00 Center s Gabapent Propensi Active Shortness Of 2017-[address] in ty to Breath, Rash 10-17 Luke s adverse 00:00: Medical reaction 00 Center s Iodine Propensi Active Rash 2017-[address] And ty to 10-17 [facility] Iodide adverse 00:00: Medical Containi reaction 00 [place] ng s Products CLINDAMY Allergy Active Low Rash 2017-09 [facility] STEPHAN 10-17 00:00: 00 Sulfamet Propensi Active Rash 2017-09 Method i hoxazole ty to 10-17 st -Trimeth adverse 00:00: Hospita oprim reaction 00 l s to drug Cefixime Propensi Active Rash 2017-09 Method i ty to 10-17 st adverse 00:00: Hospita reaction 00 l s to drug TOLTEROD Allergy Active Low Rash 2017-09 [facility] INE 10-17 00:00: 00 COCONUT DRUG Active Hives 2017-09 Univers INGREDI 1-10 ity of 00:00: [place] 00 Medical Branch Coconut Propensi Active Rash 2017-09 Univers ty to 1-10 ity of adverse 00:00: [place] reaction 00 [facility] s Branch Other Propensi Active Swelling 2017-09 Family Method i ty to 10-[address] adverse 00:00: of Hospita reaction 00 allergic l s reaction. Coconut Propensi Active Rash 2017-09 Methodi ty to 10-04 st adverse 00:00: Hospita reaction 00 l s to drug Coconut Propensi Active Rash 2017-09 Methodi Oil ty to 10-04 st adverse 00:00: Hospita reaction 00 l s to drug DIPHENHY DRUG Active Hives 2017-0 Univers DRAMINE INGREDI 4-12 ity of HCL 00:00: [place] 00 Medical Branch CLINDAMY DRUG Active Rash 2017-0 Univers STEPHAN INGREDI 4-12 ity of 00:00: [place] 00 Medical Branch GABAPENT DRUG Active Rash 2017-0 Univers IN INGREDI 4-12 ity of 00:00: [place] 00 Medical Branch IODINE DRUG Active Rash 2017-0 Univers INGREDI 4-12 ity of 00:00: [place] [...] Medical s Branch Iodine Propensi Active Rash 2017-0 Methodi And ty to 12 st Iodide adverse 00:00: Hospita Containi reaction 00 l ng s to Products drug Diphenhy Propensi Active Other (See 0 Me thodi dramine ty to Comments) 12 st adverse 00:00: Hospita reaction 00 l s to drug Gabapent Propensi Active Shortness Of 2018-0 Methodi in ty to Breath [address] st adverse 00:00: Hospita reaction 00 l s to drug Iodine Propensi Active Rash 2017-0 Methodi And ty to 12 st Iodide adverse 00:00: Hospita Containi reaction 00 l ng s to Products drug Clindamy Propensi Active Rash 2017-0 Method i stephan ty to 12 st adverse 00:00: Hospita reaction 00 l s to drug MORPHINE DRUG Active High Anaphylaxis 2017- Uni vers INGREDI 0-05 ity of 00:00: [place] 00 Medical Branch Morphine Propensi Active Anaphylaxis 2017- U nivers ty to 0-05 ity of adverse 00:00: [place] reaction 00 Medical s Branch Morphine Propensi Active Anaphylaxis 2017- M ethodi ty to 005 st adverse 00:00: Hospita reaction 00 l s to drug TRAMADOL DRUG Active Unknown-Cmnt 2017 Un [place] INGREDI 06-22 ity of 00:00: [place] 00 Medical Branch Tramadol Propensi Active Unknown - 2017 Rash Uni vers ty to See comments 06-22 ity of adverse 00:00: [place] reaction Medical s Branch Tramadol Propensi Active Rash 2017 Rash Rash Met hodi ty to 06-22 adverse 00:00: Hospita reaction 00 l s to drug Ciproflo Propensi Active Shortness of 2016 Muscle Univers xacin ty to Breath 04-20 aches ity of adverse 00:00: [place] reaction 00 Medical s Branch CIPROFLO DRUG Active SOB 2016-0 Univers XACIN INGREDI 04-20 ity of 00:00: [place] 00 Medical Branch QUETIAPI DRUG Active Rash 2016-0 Univers NE INGREDI 04-20 ity of FUMARATE 00:00: [place] 00 Medical Branch Quetiapi Propensi Active Rash 2016-0 Univer s ne ty to 04-20 ity of Fumarate adverse 00:00: [place] reaction 00 Medical s Branch Quetiapi Propensi Active Rash 2016-0 confusion Met hodi ne ty to 04-20 st adverse 00:00: Hospita reaction 00 l s to drug ALUMINUM DRUG Active High Anaphylaxis 2016-0 Uni vers ASPIRIN INGREDI 01-18 ity of 00:00: [place] 00 Medical Branch PENICILL DRUG Active High Anaphylaxis 2016-0 Uni vers IN INGREDI 01-18 ity of [...] aches drug ASPIRIN DRUG Active High Anaphylaxis 2013- Univ ers INGREDI 12-31 ity of 00:00: [place] 00 Medical Branch Aspirin Propensi Active Anaphylaxis Me thodi ty to 12-31 st adverse 00:00: Hospita reaction 00 l s to drug TOLTEROD DRUG Active Rash 2012-09 Univers [...] reaction 00 Medica l ics) s Branch Penicill Propensi Active Anaphylaxis 2012-09 M ethodi ins ty to 10-20 st adverse 00:00: Hospita reaction 00 l s to drug Latex Propensi Active Rash 2012-09 "blisters Metho di ty to 10-20 "blisters st adverse 00:00: "blisters Hospit a reaction 00 " l s to drug Adhesive Propensi Active Rash 2012-09 Can use Metho di Tape-Cynthia ty to 10-[address] icones adverse 00:00: . Can use Hospit a reaction 00 papertape l s to . drug Penicill Propensi Active Anaphylaxis 2012-09 M [...] Date Stop Date Quantity Comments Source History SDTX Yarsanism Alcohol Std Drinks Hospit al History SDTX Yarsanism Alcohol Binge Hospital Exposure to 2022-05-03 2022-05-13 Not sure [facility] SARS-CoV-2 (event) 00:00:00 09:41:00 [facility] Cigarettes smoked 2022-04-05 2022-04-05 Univers ity of current (pack per 00:00:00 00:00:00 [facility] ) - Reported Branch Cigarette 2022-04-05 2022-04-05 University of pack-years 00:00:00 00:00:00 [facility] Tobacco use and 2022-04-05 2022-04-05 Smokeless Universit y of exposure 00:00:00 00:00:00 tobacco non-user [facility] dical Branch Education 2021-03-25 2021-03-25 12 University of 00:00:00 00:00:00 [facility] Branch History SDOH 2019-10-29 2019-10-29 5 University o f Financial 00:00:00 00:00:00 [place] [facility] History SDTX Food 2019-10-29 2019-10-29 1 Univers ity of Worry 00:00:00 00:00:00 [place] [facility] History SDTX Food 2019-10-29 2019-10-29 1 Univers ity of Scarcity 00:00:00 00:00:00 [place] [facility] History SDOH 2019-10-29 2019-10-29 2 University o f Transport Med 00:00:00 00:00:00 [place] Medic al Branch History SDTX 2019-10-29 2019-10-29 2 University o f Transport Non-Med 00:00:00 00:00:00 [facility] edical Branch History SDTX 2018-09-05 2018-09-05 1 Yarsanism Alcohol Frequency 00:00:00 00:00:00 Hospita l Alcohol intake 2018-08-18 2018-08-18 Current drinker FAVIO [place] 00:00:00 00:00:00 of [facility] (finding) History of tobacco 2001-05-09 Passive smoker Un iversity of use 00:00:00 [facility] Sex [birth year] At [birth year] FAVIO [place] 00:00:00 00:00:00 Medical Center Smoking Status Start Date Stop Date Source Ex-smoker 2022-04-05 00:00:00 2022-04-05 00:00:00 Universi ty of [facility] Medications Ordered Filled Start Stop Current Ordering Indication Dosage Frequency Signature Comments Components Source Medication Medication Date Date Medication? Clinician (SIG) Name Name nitrofurant 2021- Yes [id number] 100mg Take 1 Univers oin 100 mg 05-07 capsule by it y of capsule 00:00: 04:59 mouth 4 [place] 00 :00 (four) Medical times [place] daily for 5 days. nitrofurant 2021- Yes [id number] 100mg Take 1 Univers oin 100 mg 05-07 capsule by it y of capsule 00:00: 04:59 mouth 4 [place] 00 :00 (four) Medical times [place] daily for 5 days. ALPRAZolam Yes [id number] .25mg Take 0.25 Univers 0.25 mg 8-12 mg by ity of tablet 13:33: mouth at [place] [address] bedtime as Medical needed. Branch pregabalin Yes 50mg Take 50 mg U nivers 50 mg 8-12 by mouth ity of capsule 13:33: at [place] [address] bedtime. Medical Branch ALPRAZolam Yes [id number] .25mg Take 0.25 Univers 0.25 mg 8-12 mg by ity of tablet 13:33: mouth at [place] [address] bedtime as Medical needed. Branch pregabalin Yes 50mg Take 50 mg U nivers 50 mg 8-12 by mouth ity of capsule 13:33: at [place] [address] bedtime. Medical Branch ALPRAZolam Yes [id number] .25mg Take 0.25 Univers 0.25 mg 8-12 mg by ity of tablet 13:33: mouth at [place] [address] bedtime as Medical needed. Branch pregabalin 2022-0 Yes 50mg Take 50 mg U nivers 50 mg 8-12 by mouth ity of capsule 13:33: at [place] 09 bedtime. Medical Branch ALPRAZolam 2021-0 Yes [id number] .25mg Take 0.25 Univers 0.25 mg 8-12 mg by ity of tablet 13:33: mouth at [place] 09 bedtime as Medical needed. Branch pregabalin 0 Yes 50mg Take 50 mg U nivers 50 mg 8-12 by mouth ity of capsule 13:33: at [place] [address] bedtime. Medical Branch ALPRAZolam 0 Yes [id number] .25mg Take 0.25 Univers 0.25 mg 8-12 mg by ity of tablet 13:33: mouth at [place] 09 bedtime as Medical needed. Branch pregabalin 0 Yes 50mg Take 50 mg U nivers 50 mg 8-12 by mouth ity of capsule 13:33: at [place] [address] bedtime. Medical Branch tiotropium 0 Yes 1{puff} Inhale 1 Univers bromide 8-12 Puff ity of (SPIRIVA 00:00: daily. [place] RESPIMAT) 00 Medical 2.5 Branch mcg/actuati on Mist tiotropium 0 Yes 1{puff} Inhale 1 Univers bromide 8-12 Puff ity of (SPIRIVA 00:00: daily. [place] RESPIMAT) 00 Medical 2.5 Branch mcg/actuati on Mist tiotropium 0 Yes 1{puff} Inhale 1 Univers bromide 8-12 Puff ity of (SPIRIVA 00:00: daily. [place] RESPIMAT) 00 Medical 2.5 Branch mcg/actuati on Mist tiotropium 0 Yes 1{puff} Inhale 1 Univers bromide 8-12 Puff ity of (SPIRIVA 00:00: daily. [place] RESPIMAT) 00 Medical 2.5 Branch mcg/actuati on Mist tiotropium 0 Yes 1{puff} Inhale 1 Univers bromide 8-12 Puff ity of (SPIRIVA 00:00: daily. [place] RESPIMAT) 00 Medical 2.5 Branch mcg/actuati on Mist esomeprazol 0 Yes 20mg Take 20 mg Univers e 20 mg 7-25 by mouth 2 ity of capsule 18:00: (two) [place] 13 times Medical daily Branch before breakfast and dinner. esomeprazol 2022-0 Yes 20mg Take 20 mg Univers e 20 mg 7-25 by mouth 2 ity of capsule 18:00: (two) [place] 13 times Medical daily Branch before breakfast and dinner. esomeprazol 2022-0 Yes 20mg Take 20 mg Univers e 20 mg 7-25 by mouth 2 ity of capsule 18:00: (two) [place] 13 times Medical daily Branch before breakfast and dinner. esomeprazol 2022-0 Yes 20mg Take 20 mg Univers e 20 mg 7-25 by mouth 2 ity of capsule 18:00: (two) [place] 13 times Medical daily Branch before breakfast and dinner. esomeprazol 2-0 Yes 20mg Take 20 mg Univers e 20 mg 7-25 by mouth 2 ity of capsule 18:00: (two) [place] 13 times Medical daily Branch before breakfast and dinner. roflumilast 2021-0 Yes [id number] 250ug Take 250 Univers (DALIRESP) 7-25 mcg by ity of 250 mcg Tab 00:00: mouth [place] 00 daily. Medical Branch carvediloL 2021-0 Yes [id number] 12.5mg Take 1 Univers 12.5 mg 7-25 tablet by ity of tablet 00:00: mouth in [place] [address] the Medical morning Branch and 1 tablet in the evening. Take with meals. levETIRAcet 2021-0 Yes [id number] 1250mg Take 5 Univers am 250 mg 7-25 tablets by ity of tablet 00:00: mouth in [place] [address] the Medical morning Branch and 5 tablets in the evening. atorvastati 2021-0 Yes [id number] 40mg Take 1 Univers n 40 mg 7-25 tablet by ity of tablet 00:00: mouth at [place] [address] bedtime. Medical Branch roflumilast 2021-0 Yes [id number] 250ug Take 250 Univers (DALIRESP) 7-25 mcg by ity of 250 mcg Tab 00:00: mouth [place] 00 daily. Medical Branch carvediloL 2021-0 Yes [id number] 12.5mg Take 1 Univers 12.5 mg 7-25 tablet by ity of tablet 00:00: mouth in [place] [address] the Medical morning Branch and 1 tablet in the evening. Take with meals. levETIRAcet 2021-0 Yes [id number] 1250mg Take 5 [facility] am 250 mg 7-25 tablets by ity of tablet 00:00: mouth in [place] 00 the Medical morning Branch and 5 tablets in the evening. atorvastati 2021-0 Yes [id number] 40mg Take 1 Univers n 40 mg 7-25 tablet by ity of tablet 00:00: mouth at [place] [address] bedtime. Medical Branch roflumilast 0 Yes [id number] 250ug Take 250 Univers (DALIRESP) 7-25 mcg by ity of 250 mcg Tab 00:00: mouth [place] 00 daily. Medical Branch carvediloL 0 Yes [id number] 12.5mg Take 1 Univers 12.5 mg 7-25 tablet by ity of tablet 00:00: mouth in [place] 00 the [facility] morning Branch and 1 tablet in the evening. Take with meals. levETIRAcet 0 Yes [id number] 1250mg Take 5 [facility] am 250 mg 7-25 tablets by ity of tablet 00:00: mouth in [place] the [facility] morning Branch and 5 tablets in the evening. atorvastati 0 Yes [id number] 40mg Take 1 Univers n 40 mg 7-25 tablet by ity of tablet 00:00: mouth at [place] [address] bedtime. Medical Branch roflumilast 0 Yes [id number] 250ug Take 250 Univers (DALIRESP) 7-25 mcg by ity of 250 mcg Tab 00:00: mouth [place] 00 daily. Medical Branch carvediloL 0 Yes [id number] 12.5mg Take 1 Univers 12.5 mg 7-25 tablet by ity of tablet 00:00: mouth in [place] 00 the [facility] morning Branch and 1 tablet in the evening. Take with meals. levETIRAcet 0 Yes [id number] 1250mg Take 5 [facility] am 250 mg 7-25 tablets by ity of tablet 00:00: mouth in [place] [address] the [facility] morning [place] and 5 tablets in the evening. atorvastati 0 Yes [id number] 40mg Take 1 Univers n 40 mg 7-25 tablet by ity of tablet 00:00: mouth at [place] [address] bedtime. [facility] Branch roflumilast 2021-0 Yes [id number] 250ug Take 250 Univers (DALIRESP) 7-25 mcg by ity of 250 mcg Tab 00:00: mouth [place] 00 daily. Medical Branch carvediloL 0 Yes [id number] 12.5mg Take 1 [facility] 12.5 mg 7-25 tablet by ity of tablet 00:00: mouth in [place] 00 the Medical morning Branch and 1 tablet in the evening. Take with meals. levETIRAcet Yes [id number] 1250mg Take 5 [facility] am 250 mg 7-25 tablets by ity of tablet 00:00: mouth in [place] 00 the Medical morning Branch and 5 tablets in the evening. atorvastati Yes [id number] 40mg Take 1 [facility] n 40 mg 7-25 tablet by ity of tablet 00:00: mouth at [place] [address] bedtime. Medical Branch ubrogepant Yes [id number] 100mg Take 100 Univers (UBRELVY) 6-21 mg by ity of 100 mg Tab 00:00: mouth as [place] 00 needed Medical (migraine) Branch . Take at onset of migraine, repeat x1 in 2h if headache remains ubrogepant 2021-0 Yes [id number] 100mg Take 100 Univers (UBRELVY) 6-21 mg by ity of 100 mg Tab 00:00: mouth as [place] 00 needed Medical (migraine) Branch . Take at onset of migraine, repeat x1 in 2h if headache remains ubrogepant 2021-0 Yes [id number] 100mg Take 100 Univers (UBRELVY) 6-21 mg by ity of 100 mg Tab 00:00: mouth as [place] 00 needed Medical (migraine) Branch . Take at onset of migraine, repeat x1 in 2h if headache remains ubrogepant 2021-0 Yes [id number] 100mg Take 100 [facility] (UBRELVY) 6-21 mg by ity of 100 mg Tab 00:00: mouth as [place] 00 needed Medical (migraine) Branch . Take at onset of migraine, repeat x1 in 2h if headache remains ubrogepant 2-0 Yes [id number] 100mg Take 100 Univers (UBRELVY) 6-21 mg by ity of 100 mg Tab 00:00: mouth as [place] 00 needed Medical (migraine) Branch . Take at onset of migraine, repeat x1 in 2h if headache remains fluticasone 2021-0 Yes [id number] 1{puff} Inhale 1 Univers furoate-natan 6-03 Puff ity of anteroL 00:00: daily. [place] ([address]) Branch 200-25 mcg/dose DsDv DULoxetine 0 Yes 30mg Take 1 Unive rs 30 mg 6-03 capsule by ity of capsule 00:00: mouth [place] 00 daily. Medical Branch traZODone 2021-0 Yes 50mg Take 1-2 Univ ers 50 mg 6-03 tablets by ity of tablet 00:00: mouth at [place] 00 bedtime as Medical needed for Branch Insomnia. fluticasone 2021-0 Yes [id number] 1{puff} Inhale 1 Univers furoate-natan 6-03 Puff ity of anteroL 00:00: daily. [place] ([facility]) Branch 200-25 mcg/dose DsDv DULoxetine 0 Yes 30mg Take 1 Unive rs 30 mg 6-03 capsule by ity of capsule 00:00: mouth [place] 00 daily. Medical Branch traZODone 2021-0 Yes 50mg Take 1-2 Univ ers 50 mg 6-03 tablets by ity of tablet 00:00: mouth at [place] 00 bedtime as Medical needed for Branch Insomnia. fluticasone 2021-0 Yes [id number] 1{puff} Inhale 1 Univers furoate-natan 6-03 Puff ity of anteroL 00:00: daily. [place] ([facility]) Branch 200-25 mcg/dose DsDv DULoxetine 2021-0 Yes 30mg Take 1 Unive rs 30 mg 6-03 capsule by ity of capsule 00:00: mouth [place] 00 daily. Medical Branch traZODone 2021-0 Yes 50mg Take 1-2 Univ ers 50 mg 6-03 tablets by ity of tablet 00:00: mouth at [place] 00 bedtime as Medical needed for Branch Insomnia. fluticasone 2021-0 Yes [id number] 1{puff} Inhale 1 Univers furoate-natan 6-03 Puff ity of anteroL 00:00: daily. [place] ([address]) Branch 200-25 mcg/dose DsDv DULoxetine 2021-0 Yes 30mg Take 1 Unive rs 30 mg 6-03 capsule by ity of capsule 00:00: mouth [place] 00 daily. Medical Branch traZODone Yes 50mg Take 1-2 Univ ers 50 mg 6-03 tablets by ity of tablet 00:00: mouth at [place] bedtime as Medical needed for Branch Insomnia. fluticasone Yes [id number] 1{puff} Inhale 1 Univers furoate-natan 6-03 Puff ity of anteroL 00:00: daily. [place] (BREO 00 Medical ELLIPTA) Branch 200-25 mcg/dose DsDv DULoxetine Yes 30mg Take 1 Unive rs 30 mg 6-03 capsule by ity of capsule 00:00: mouth [place] daily. Medical Branch traZODone Yes 50mg Take 1-2 Univ ers 50 mg 6-03 tablets by ity of tablet 00:00: mouth at [place] bedtime as Medical needed for Branch Insomnia. BENZONATATE Yes [id number] TAKE 1 Univers 100 mg 3-04 CAPSULE BY ity of capsule 00:00: MOUTH [place] THREE Medical TIMES Branch DAILY NEEDED FOR COUGH BENZONATATE Yes [id number] TAKE 1 Univers 100 mg 3-04 CAPSULE BY ity of capsule 00:00: MOUTH [place] THREE Medical TIMES Branch DAILY NEEDED FOR COUGH BENZONATATE Yes [id number] TAKE 1 Univers 100 mg 3-04 CAPSULE BY ity of capsule 00:00: MOUTH [place] THREE Medical TIMES Branch DAILY NEEDED FOR COUGH BENZONATATE 0 Yes [id number] TAKE 1 [facility] 100 mg 3-04 CAPSULE BY ity of capsule 00:00: MOUTH [place] THREE Medical TIMES Branch DAILY NEEDED FOR COUGH BENZONATATE Yes [id number] TAKE 1 Univers 100 mg 3-04 CAPSULE BY ity of capsule 00:00: MOUTH [place] THREE Medical TIMES Branch DAILY NEEDED FOR COUGH digoxin 125 2020-09 Yes 125ug Take 1 Uni vers mcg (0.125 2-07 tablet by ity of mg) tablet 00:00: mouth [place] daily. Medical Branch furosemide 2020-09 Yes 20mg Take 1 Unive rs 20 mg 2-07 tablet by ity of tablet 00:00: mouth as [place] 00 needed. Medical Branch digoxin 125 2020-09 Yes 125ug Take 1 Uni vers mcg (0.125 2-07 tablet by ity of mg) tablet 00:00: mouth [place] 00 daily. Medical Branch furosemide 2020-09 Yes 20mg Take 1 Unive rs 20 mg 2-07 tablet by ity of tablet 00:00: mouth as [place] 00 needed. Medical Branch digoxin 125 2020-09 Yes 125ug Take 1 Uni vers mcg (0.125 2-07 tablet by ity of mg) tablet 00:00: mouth [place] 00 daily. Medical Branch furosemide 2020-09 Yes 20mg Take 1 Unive rs 20 mg 2-07 tablet by ity of tablet 00:00: mouth as [place] 00 needed. Medical Branch digoxin 125 2020-09 Yes 125ug Take 1 Uni vers mcg (0.125 2-07 tablet by ity of mg) tablet 00:00: mouth [place] 00 daily. Medical Branch furosemide 2020-09 Yes 20mg Take 1 Unive rs 20 mg 2-07 tablet by ity of tablet 00:00: mouth as [place] 00 needed. Medical Branch digoxin 125 2020-09 Yes 125ug Take 1 Uni vers mcg (0.125 2-07 tablet by ity of mg) tablet 00:00: mouth [place] 00 daily. Medical Branch furosemide 2020-09 Yes 20mg Take 1 Unive rs 20 mg 2-07 tablet by ity of tablet 00:00: mouth as [place] 00 needed. Medical Branch albuterol 2020-09 Yes [id number] 2{puff} Inhale 2 Univers 90 1-05 Puffs ity of mcg/actuati 00:00: every 6 [place] on inhaler 00 (six) Medical hours as Branch needed for Wheezing or Shortness of Breath. albuterol 2020-09 Yes [id number] 2{puff} Inhale 2 Univers 90 1-05 Puffs ity of mcg/actuati 00:00: every 6 [place] on inhaler 00 (six) Medical hours as Branch needed for Wheezing or Shortness of Breath. albuterol 2020-09 Yes [id number] 2{puff} Inhale 2 Univers 90 1-05 Puffs ity of mcg/actuati 00:00: every 6 [place] on inhaler 00 (six) Medical hours as Branch needed for Wheezing or Shortness of Breath. albuterol 2020-09 Yes [id number] 2{puff} Inhale 2 Univers 90 1-05 Puffs ity of mcg/actuati 00:00: every 6 [place] on inhaler 00 (six) Medical hours as Branch needed for Wheezing or Shortness of Breath. albuterol 2020-09 Yes [id number] 2{puff} Inhale 2 Univers 90 1-05 Puffs ity of mcg/actuati 00:00: every 6 [place] on inhaler 00 (six) Medical hours as Branch needed for Wheezing or Shortness of Breath. apixaban 2020-0 Yes 5mg Take 1 Univers [...] mcg/actuati route on nasal daily. spray fluticasone 2020-0 Yes 100ug QD 2 sprays [...] day. l ophthalmic emulsion albuterol Yes 1{ampul Q.[id number] Take 1 [facility] (ACCUNEB) 6-24 e} [id number] ampule by st 1.25 mg/3 22:52: 3D [...] 44 (two) l times a day. esomeprazol 2020-0 2021- No 20mg QD Take 20 mg [facility] (NexIUM) 6-24 06-[address] 20 MG 20:19: 00:00 daily Hospita capsule 48 :00 before l breakfast. benztropine 2020-0 Yes 1mg Q.5D Take 1 mg M ethodi (COGENTIN) 6-[address] 1 MG tablet 17:52: (two) Hospi ta 44 times a l day. busPIRone 2020-0 Yes 15mg Q.5D Take 15 mg [facility] (BUSPAR) 10 6-[address] MG tablet 17:52: (two) Hospita 44 times a l day. digOXIN 2020-0 Yes 125ug QD Take 125 [facility] di (LANOXIN) 6-[address] 125 mcg 17:52: mouth [facility]osp[facility] tablet 44 daily. l ALPRAZolam 0 Yes .25mg QD Take 0.25 M ethodi (XANAX) 6-[address] 0.25 MG 17:52: mouth [facility]osp[facility] tablet 44 nightly as l needed for anxiety. carvediloL 0 Yes 25mg Q.5D Take 25 mg M ethodi (COREG) 25 6-[address] MG tablet 17:52: (two) Hospita 44 times a l day with meals. venlafaxine 0 Yes 150mg QD Take 150 M ethodi XR 6-[address] (EFFEXOR-XR 17:52: mouth Hospi ta ) 150 MG 24 44 daily. l hr capsule apixaban 0 Yes 5mg Q.5D Take 5 mg Meth jamie (ELIQUIS) 5 6-[address] mg tablet 17:52: (two) Hospita 44 times a l day. famotidine 0 Yes 20mg QD Take 20 mg M ethodi (PEPCID) 20 6-[address] MG tablet 17:52: nightly. [facility] 44 l levETIRAcet 2020-0 Yes 1000mg Q.5D Take 1,000 [facility] am (KEPPRA) 6-[address] 1000 MG 17:52: mouth 2 Hospita tablet 44 (two) l times a day. pregabalin 2020-0 Yes 50mg QD Take 50 mg M ethodi (LYRICA) 50 6-[address] MG capsule 17:52: nightly. Hos [place] 44 l cariprazine 2020-0 Yes 1.5mg QD Take 1.5 M ethodi (Vraylar) 6-[address] 1.5 mg 17:52: mouth [facility]ospita capsule 44 nightly. 2 l capsules cholecalcif 0 Yes 2000U QD Take 2,000 [facility] florentino, 6-[address] vitamin D3, 17:52: mouth Hospi ta 1,000 unit 44 daily. l tablet tiotropium Yes 1{capsu QD Place 1 M ethodi (SPIRIVA) 6-24 le} capsule st 18 mcg per 17:52: into Hospita inhalation 44 inhaler l capsule and inhale once daily. rosuvastati Yes 5mg QD Take 5 mg M ethodi n (CRESTOR) 6-[address] 5 mg tablet 17:52: daily. [facility] 44 l cycloSPORIN Yes 1[drp] Q.5D 1 drop 2 [facility] E 6-24 (two) st (RESTASIS) 17:52: times a [facility] 0.05 % 44 day. l ophthalmic emulsion albuterol Yes 1{ampul Q.[id number] Take 1 [facility] (ACCUNEB) 6-24 e} [id number] ampule by st 1.25 mg/3 17:52: 3D nebulizati Ho spita mL 44 on 3 l nebulizer (three) solution times a day. ARIPiprazol 2020- No 5mg QD Take 5 mg [facility] e (ABILIFY) 6-03-[address] 5 MG tablet 01:39: 00:00 daily. Hos [place] 34 :00 l ARIPiprazol 2020- No 10mg QD Take 10 mg Method[facility] (ABILIFY) 6-24 -[address] 10 MG 01:39: 00:00 [...] daily as Center needed for Anxiety. busPIRone 0 Yes 15mg Q.5D Take [address] (BUSPAR) 15 5-21 by mouth 2 Jeanie kes MG tablet 14:04: (two) Medical 46 times Center daily. digoxin Yes 125ug QD Take [facility]LANOXIN[facility] 0.125 MG 14:04: mouth Medical tablet 46 daily. [facility] venlafaxine Yes 150mg QD Take [address] (EFFEXOR-XR 5-21 mg [facility] ) 150 MG 24 14:04: mouth Medic al hr capsule 46 daily. [facility] apixaban Yes 5mg QD Take 5 mg [...] 10 mg 14:04: daily. Medical tablet 46 [facility] pregabalin Yes 50mg QD Take 50 mg [...] Cap 14:04: mouth Medica l 46 nightly. [facility] ALPRAZolam Yes .25mg Take 0.25 C HI [...] MG 14:04: mouth Medical tablet 46 daily. [facility] venlafaxine Yes 150mg QD Take [address] (EFFEXOR-XR 5-21 mg [facility] ) 150 MG 24 14:04: mouth Medic al hr capsule 46 daily. [facility] apixaban Yes 5mg QD Take [address] (ELIQUIS) 5 5-21 by mouth Luke s mg Tab 14:04: daily. Medical tablet 46 [facility] levETIRAcet Yes 1000mg Q.5D Take 1,[address] am (KEPPRA) 5-21 mg by [facility] 1000 MG 14:04: mouth 2 Medical tablet 46 (two) Center times daily. loratadine Yes 10mg QD Take [address] (CLARITIN) 5-21 by mouth [facility] 10 mg 14:04: daily. Medical tablet 46 [facility] pregabalin Yes 50mg QD Take 50 mg [...] by mouth [facility] MG tablet 14:04: nightly. [facility] 46 Center carvediloL Yes 25mg Take [...] -vilanterol -21 05-21 puff by Luke s (BREO 11:39: [...] -10 02-19 by mouth 3 Jeanie kes 2 MG tablet 22:18: 00:00 (three) Me dical 40 :00 times Center daily as needed. benztropine No 1mg Take [address] [facility] (COGENTIN) -10 02-19 by mouth Luke s 1 MG tablet 22:18: 00:00 daily as M edical 31 :00 needed. [facility] ARIPiprazol No 5mg QD Take [address] [facility] (ABILIFY) -10 02-19 by mouth Berta es 5 MG tablet 22:18: 00:00 nightly. M edical 03 :00 [facility] ARIPiprazol No 10mg QD Take [address] [facility] (ABILIFY) - 05-19 by mouth Berta es 10 MG 22:17: 00:00 daily. Medical disintegrat 48 :00 [facility] ing tablet Immunizations Ordered Filled Immunization Date Status Comments [facility] e Immunization Name Name SARS-COV-2 COVID-19 2021-02-08 Completed Unive rsity of MODERNA VACCINE 00:00:00 [facility] SARS-COV-2 COVID-19 2021-02-08 Completed Unive rsity of MODERNA VACCINE 00:00:00 [facility] SARS-COV-2 COVID-19 2021-02-08 Completed Unive rsity of MODERNA VACCINE 00:00:00 [facility] SARS-COV-2 COVID-19 2021-02-08 Completed Unive rsity of MODERNA VACCINE 00:00:00 [facility] SARS-COV-2 COVID-19 2021-02-08 Completed Unive rsity of MODERNA VACCINE 00:00:00 [facility] SARS-COV-2 COVID-19 2021-01-11 Completed Unive rsity of MODERNA VACCINE 00:00:00 [facility] SARS-COV-2 COVID-19 2021-01-11 Completed Unive rsity of MODERNA VACCINE 00:00:00 [facility] SARS-COV-2 COVID-19 2021-01-11 Completed Unive rsity of MODERNA VACCINE 00:00:00 [facility] SARS-COV-2 COVID-19 2021-01-11 Completed Unive rsity of MODERNA VACCINE 00:00:00 [facility] SARS-COV-2 COVID-19 2021-01-11 Completed Unive rsity of MODERNA VACCINE 00:00:00 [facility] Influenza Virus 2020-08-13 Completed Universit y of Vaccine 00:00:00 [facility] Influenza Virus 2020-08-13 Completed Universit y of Vaccine 00:00:00 [facility] Influenza Virus 2020-08-13 Completed Universit y of Vaccine 00:00:00 [facility] Influenza Virus 2020-08-13 Completed Universit y of Vaccine 00:00:00 [facility] Influenza Virus 2020-08-13 Completed Universit y of Vaccine 00:00:00 [facility] Pneumococcal 2017-06-23 Completed University o f Polysaccharide, 00:00:00 [facility] ical PPSV23 (PNEUMOVAX) Branch Pneumococcal 2017-06-23 Completed University o f Polysaccharide, 00:00:00 [facility] ical PPSV23 (PNEUMOVAX) Branch Pneumococcal 2017-06-23 Completed University o f Polysaccharide, 00:00:00 [facility] ical PPSV23 (PNEUMOVAX) Branch Pneumococcal 2017-06-23 Completed University o f Polysaccharide, 00:00:00 [facility] ical PPSV23 (PNEUMOVAX) Branch Pneumococcal 2017-06-23 Completed University o f Polysaccharide, 00:00:00 [facility] ical PPSV23 (PNEUMOVAX) Branch Influenza High Dose 2015-11-16 Completed Unive rsity of 00:00:00 [facility] Pneumococcal 2015-11-16 Completed University o f Polysaccharide, 00:00:00 [place] Med ical PPSV23 (PNEUMOVAX) Branch Influenza High Dose 2015-11-16 Completed Unive rsity of 00:00:00 [facility] Pneumococcal 2015-11-16 Completed University o f Polysaccharide, 00:00:00 [place] [facility] ical PPSV23 (PNEUMOVAX) Branch Influenza High Dose 2015-11-16 Completed Unive rsity of 00:00:00 [facility] Pneumococcal 2015-11-16 Completed University o f Polysaccharide, 00:00:00 [place] Med ical PPSV23 (PNEUMOVAX) Branch Influenza High Dose 2015-11-16 Completed Unive rsity of 00:00:00 [facility] Pneumococcal 2015-11-16 Completed University o f Polysaccharide, 00:00:00 [place] Med ical PPSV23 (PNEUMOVAX) Branch Influenza High Dose 2015-11-16 Completed Unive rsity of 00:00:00 [facility] Pneumococcal 2015-11-16 Completed University o f Polysaccharide, 00:00:00 [place] Med ical PPSV23 (PNEUMOVAX) Branch Vital Signs Vital Name Observation Time Observation Value Comments Source HEIGHT 2021-02-10 21:00:00 149.9 cm WEIGHT 2021-02-10 21:00:00 59.467 kg HEIGHT 2021-02-10 21:00:00 149.9 cm WEIGHT 2021-02-10 21:00:00 59.467 kg Oxygen saturation in 2021-03-18 20:00:00 97 /min [facility] Arterial blood by Pulse oximetry Systolic blood 2021-03-18 17:24:48 132 mm[Hg] [facility] pressure Diastolic blood 2021-03-18 17:24:48 72 mm[Hg] [facility] pressure Heart rate 2021-03-18 17:24:48 96 /min [facility] Body temperature 2021-03-18 17:24:48 37 Aykaa [facility] Respiratory rate 2021-03-18 17:24:48 14 /min [facility] Body height 2021-03-18 01:37:00 149.9 cm [facility] Body weight 2021-03-18 00:09:00 58.968 kg [facility] BMI 2021-03-18 00:09:00 26.26 kg/m2 [facility] Systolic blood 2021-02-12 12:00:00 101 mm[Hg] [facility] Diastolic blood 2021-02-12 12:00:00 72 mm[Hg] [facility] Heart rate 2021-02-12 12:00:00 93 /min [facility] Respiratory rate 2021-02-12 12:00:00 18 /min [facility] Oxygen saturation in 2021-02-12 12:00:00 96 /min [facility] Arterial blood by Medical Ce nter Pulse oximetry Body temperature 2021-02-12 11:00:00 37.56 Ayaka [facility] Body height 2021-02-11 10:15:00 149.9 cm [facility] Body weight 2021-02-11 10:15:00 59.5 kg [facility] BMI 2021-02-11 10:15:00 26.48 kg/m2 [facility] Procedures Procedure Date / Time Performing Clinician Source Performed MEDICATION CORRESPONDENCE 2022-05-09 05:01:00 Doctor Unassigned, [facility] Name [facility] MEDICATION CORRESPONDENCE 2022-05-06 05:01:00 Doctor Unassigned, [facility] Name [facility] POC GLUCOSE 2021-03-18 17:31:00 Matt Berkowitz spital ECG 12-LEAD 2021-03-18 17:28:01 [facility] TROPONIN 2021-03-18 16:41:00 [facility] TTE COMPLETE, WO 2021-03-18 14:19:12 [facility] CONTRAST, W DOPPLER ([id number]) POC GLUCOSE 2021-03-18 13:14:00 [facility] HC COMPLETE BLD COUNT 2021-03-18 10:00:00 [facility] W/AUTO DIFF COMPREHENSIVE METABOLIC 2021-03-18 10:00:00 [facility] PANEL MAGNESIUM LEVEL 2021-03-18 10:00:00 Laeeq, [facility] PHOSPHORUS LEVEL 2021-03-18 10:00:00 Lae, [facility] LIPID PANEL 2021-03-18 10:00:00 [facility], [facility] HEMOGLOBIN A1C 2021-03-18 10:00:00 Lae, [facility] ESTIMATED GFR 2021-03-18 10:00:00 Lae, [facility] URINE CULTURE 2021-03-18 06:12:00 Lae, [facility] LEGIONELLA URINARY 2021-03-18 05:36:00 Lae, [facility] ANTIGEN STREPTOCOCCUS PNEUMONIAE 2021-03-18 05:36:00 Lae, [facility] URINARY ANTIGEN URINALYSIS SCREEN AND 2021-03-18 05:36:00 Laeeq, [facility] MICROSCOPY, WITH REFLEX TO CULTURE BLOOD CULTURE, AEROBIC & 2021-03-18 04:35:00 Lae, [facility] ANAEROBIC BLOOD CULTURE, AEROBIC & 2021-03-18 04:25:00 Lae, [facility] ANAEROBIC DIGOXIN LEVEL 2021-03-18 04:24:00 Lae, [facility] TROPONIN 2021-03-18 04:24:00 AlvarezHector calhoun [facility] LACTIC ACID LEVEL, SEPSIS 2021-03-18 04:24:00 Lae, [facility] - NOW AND REPEAT 2X EVERY 3 HOURS POC GLUCOSE 2021-03-18 01:38:00 [facility], [facility] ARTERIAL BLOOD GAS 2021-03-18 01:10:00 Lae, [facility] US DUPLEX VENOUS LOWER 2021-03-18 01:00:06 Lae, [facility] EXTREMITY BILATERAL LACTIC ACID LEVEL, SEPSIS 2021-03-17 23:47:00 Lae, [facility] - NOW AND REPEAT 2X EVERY 3 HOURS TROPONIN 2021-03-17 23:47:00 [facility], [facility] XR CHEST 1 VW PORTABLE 2021-03-17 21:20:[address] [facility] HC COMPLETE BLD COUNT 2021-03-17 21:05:00 [facility] Hector Ochoa [facility] W/AUTO DIFF LACTIC ACID LEVEL, SEPSIS 2021-03-17 21:05:00 [facility] - NOW AND REPEAT 2X EVERY 3 HOURS COMPREHENSIVE METABOLIC 2021-03-17 21:05:00 [facility] Hector Ochoa [facility] PANEL TROPONIN 2021-03-17 21:05:00 [facility] B NATRIURETIC PEPTIDE 2021-03-17 21:05:00 AlvarezHector [facility] D-DIMER 2021-03-17 21:05:00 [facility] ESTIMATED GFR 2021-03-17 21:05:00 [facility] ECG ED PRELIMINARY 2021-03-17 20:36:46 [facility] INTERPRETATION ECG 12-LEAD 2021-03-17 20:19:38 [facility] BASIC METABOLIC PANEL (7) 2021-02-12 05:34:00 [facility] MAGNESIUM 2021-02-12 05:34:00 [facility] PHOSPHORUS 2021-02-12 05:34:00 [facility] CBC W/PLT COUNT & AUTO 2021-02-12 04:48:00 JohanAlison [facility] MR BRAIN WITHOUT IV 2021-02-11 16:08:00 Naina Igor [facility] MRA HEAD WITHOUT IV 2021-02-11 16:07:00 [facility] MRA NECK WITHOUT IV 2021-02-11 16:07:[address] [facility] RAPID DRUG SCREEN, URINE 2021-02-11 03:05:00 [facility] URINALYSIS WITH 2021-02-11 03:05:00 [facility] MICROSCOPIC IF INDICATED Center URINALYSIS MICROSCOPIC 2021-02-11 03:05:00 [facility] HOMOCYSTEINE 2021-02-11 02:46:00 [facility] RPR 2021-02-11 02:46:00 [facility] TSH/FREE T4 IF INDICATED 2021-02-11 02:46:00 [facility] VITAMIN B12 AND FOLATE 2021-02-11 02:46:00 [facility] CBC W/PLT COUNT & AUTO 2021-02-11 02:46:00 [facility] BASIC METABOLIC PANEL (7) 2021-02-11 02:46:00 [facility] MAGNESIUM 2021-02-11 02:46:00 [facility] PHOSPHORUS 2021-02-11 02:46:00 [facility] C-REACTIVE PROTEIN 2021-02-11 02:46:00 [facility] DIGOXIN LEVEL 2021-02-11 02:46:00 [facility] XR CHEST 1 VIEW PORTABLE 2021-02-10 22:20:00 [facility] / BEDSIDE Center POCT-GLUCOSE METER 2021-02-10 21:28:00 [facility] LIPID PANEL 2021-02-10 21:22:00 [facility] CREATINE KINASE (CK) 2021-02-10 21:21:00 [facility] HEMOGLOBIN A1C 2021-02-10 21:21:00 [facility] CBC W/PLT COUNT & AUTO 2021-02-10 21:21:00 [facility] COMPREHENSIVE METABOLIC 2021-02-10 21:21:00 [facility] PROTHROMBIN TIME/INR 2021-02-10 21:21:00 [facility] APTT 2021-02-10 21:21:00 [facility] MAGNESIUM 2021-02-10 21:21:00 [facility] PHOSPHORUS 2021-02-10 21:21:00 [facility] HIGH SENSITIVITY TROPONIN 2021-02-10 21:21:00 [facility] [place] B-TYPE NATRIURETIC FACTOR 2021-02-10 21:21:00 [facility] (BNP) [place] LACTIC ACID, VENOUS 2021-02-10 21:21:00 [facility] ARRYTHMIA IMPLANT REPORT 2021-02-10 00:00:00 Provider, Default C [facility] - SCAN Scanning Center Plan of Care Planned Activity Planned Date Details Comments Source Future Scheduled 2022-05-26 INFLUENZA VACCINE (#1) C [facility] Test 00:00:00 [code = INFLUENZA Medical Ce nter VACCINE (#1)] Future Scheduled 2022-05-19 HEPATITIS B VACCINES Met [facility] Test 06:25:27 (1 of 3 - 3-dose series) [code = HEPATITIS B VACCINES (1 of 3 - 3-dose series)] Future Scheduled 2022-05-19 Screening for [facility] Test 06:25:27 malignant neoplasm of cervix (procedure) [code = 153900542] Future Scheduled 2022-05-19 BREAST CANCER [facility] Test 06:25:27 SCREENING [code = BREAST CANCER SCREENING] Future Scheduled 2022-05-19 COVID-19 VACCINE (3 - [facility] Test 06:25:27 Booster for Moderna series) [code = COVID-19 VACCINE (3 - Booster for Moderna series)] Future Scheduled 2022-05-19 INFLUENZA VACCINE Method [facility] Test 06:25:27 [code = INFLUENZA VACCINE] Future Scheduled 2021-09-25 DEPRESSION SCREENING [facility] Test 00:00:00 (12+) [code = Medical Center DEPRESSION SCREENING (12+)] Future Scheduled 2021-07-11 COVID-19 VACCINE (3 - CH I [facility] Test 00:00:00 Booster for Moderna [facility] series) [code = COVID-19 VACCINE (3 - Booster for Moderna series)] Future Scheduled 2021-05-26 INFLUENZA VACCINE (#1) [facility] Test 00:00:00 [code = INFLUENZA Medical Ce nter VACCINE (#1)] Future Scheduled 2020-09-[address] [facility] Test 00:00:00 (12+) [code = Medical Center DEPRESSION SCREENING (12+)] Future Scheduled 2018-06-[address] [facility] Test 00:00:00 0-64 YRS (2 - PCV) Medical C enter [code = PNEUMOCOCCAL VACCINE 0-64 YRS (2 - PCV)] Future Scheduled [address] [facility] Test 00:[facility]:00 [facility] cervix (procedure) [code = 451427484] Future Scheduled [address] [facility] Test 00:00:00 [facility] [place] cervix (procedure) [code = 503865588] Future Scheduled 2000 DTAP/TDAP/TD VACCINES [facility] Test 00:00:00 (1 - Tdap) [code = Medical C enter DTAP/TDAP/TD VACCINES (1 - Tdap)] Future Scheduled 2000 DTAP/TDAP/TD VACCINES [facility] Test 00:00:00 (1 - Tdap) [code = Medical C enter DTAP/TDAP/TD VACCINES (1 - Tdap)] Future Scheduled 1999 HEPATITIS C SCREENING [facility] Test 00:00:00 [code = HEPATITIS C Medical Center SCREENING] Future Scheduled 1999 HEPATITIS C SCRE[facility]ING [facility] Test 00:00:00 [code = HEPATITIS C Medical Center SCREENING] Future Scheduled Screening for [facility] Test malignant neoplasm of cervix (procedure) [code = 859574597] Future Scheduled INFLUENZA VACCINE [facility] Test [code = INFLUENZA VACCINE] Encounters Start End Encounter Admission Attending Care Care Encounter Source Date/Time Date/Time Type Type Clinicians Facility Department ID 2021-02-10 Inpatient ER BERSHAD, [facility] Neurology [id number] [facility] 20:21:00 WILMER 2020-09-29 Inpatient Mely, HCAPM ENDO [id number] [facility] 10:15:00 Linus [id number] [facility] [place] 2020-09-28 Inpatient EL Mely, HCAPM ENDO [id number] [facility] 12:00:00 Linus [id number] [facility] [place] 2022-08-05 2022-08-05 Outpatient R AMOS [facility] [id number] Univers 10:40:00 10:40:00 CARITO [id number] [facility] 2022-08-05 2022-08-05 [facility] [id number] Univers 10:40:00 10:40:00 CARITO [facility] 2022-05-24 2022-05-24 [facility]patient [facility] [id number] Univers 09:30:00 09:30:00 SENDIL [facility] 2022-05-19 2022-05-19 [facility]phone [facility] [id number] Univers 00:00:00 00:00:00 Shiwan [place] 350.1.13.10 i ty of [place] [id number] [address] 2022-05-19 2022-05-19 Telephone Malena [facility] [id number] Univers 00:00:00 00:00:00 Shiwan [place] 350.1.13.10 i ty [facility] 4.[place] [id number] [address] 2022-05-13 2022-05-13 Outpatient [facility] [id number] Univers 09:42:18 23:59:00 CARITO [facility] 2022-05-09 2022-05-09 Telephone Malena [facility] [id number] Univers 00:00:00 00:00:00 Shiwan [place] 350.1.13.10 i ty of [place] [phone] [address] 2022-05-09 2022-05-09 Orders Doctor NUNO 1.2.840.114 [id number] Univers 00:00:00 00:00:00 Only Unassigned, PINKY 350.1.13.10 ity of [place] [facility] 4.2.7.2.686 Basilio as [id number] [place] [address] [address] 2022-05-07 2022-05-07 Emergency X SINGER [facility] ERT [id number] Univers 20:14:00 22:33:00 KYAW whitaker [facility] 2022-05-06 2022-05-06 Orders Doctor NUNO 1.2.840.114 [id number] Univers 00:00:00 00:00:00 Only Unassigned, PINKY 350.1.13.10 it of [place] [facility] 4.2.7.2.686 Basilio as [id number] [address] 2022-04-07 2022-04-07 Outpatient [facility] [address] [place] 08:14:00 08:14:00 H 0714 da [facility] 2021-05-12 2021-05-12 Orders Doctor NUNO 1.2.840.114 [id number] 00:00:00 00:00:00 Only Unassigned, PINKY 350.1.13.10 [place] [facility] 4.2.7.2.686 [id number] 009 2021-04-29 2021-04-29 Office Malena [facility] 1.2.840.114 [id number] 12:33:16 13:56:43 Visit Tucker Stafford 350.1.13.10 [place] 4.2.7.2.686 Professio [id number] [facility] [address] [facility] 2021-04-28 2021-04-28 Orders DANITA Guy 1.2.173.413 [id number] 00:00:00 00:00:00 Only Tucker PARR[place] 350.1.13.10 CLINICS 4.2.7.2.686 [id number] 084 2021-03-19 2021-03-19 Patient Salcido, 1.2.840.1 [id number] Methodi 00:00:00 00:00:00 Outreach Ann [address]7699.1.[address] 3.430.2.7 Hospit a .3.982233 l .8 2021-03-17 2021-03-18 Emergency Hector Alvarez 1.2.840.1 [id number] Methodi 14:59:00 17:52:00 Veda Bolanos [address]36.1.[address] Matt Berkowitz 3.430.2.7 Hospita .3.873182 l .8 2021-03-17 2021-03-17 Travel 1.2.840.1 1.2.233.884 [id number] Methodi 00:00:00 00:00:[address] 3.430.2.7 0.2.7.3.698 Ho spita .3.668896 084.8 l .8 2017-09-06 2017-09-08 Inpatient E [facility] [id number] 10:12:00 02:32:00 [facility] Results Test Description Test Time Test [...] of 17-MAR-2021 15:19,-No significant change was found- [facility] [id number] 12:41:23 Test Item Value Reference Range Interpretation Comments Urine culture isolate Mixed alok <=10-3 (test code = 64994-1) col/cc [facility] Complete, (w Contrast, Strain and 3D if needed)2021-03-18 23:04:52 Test Item Value Reference Range Interpretation Comments Ao Root Diameter (test code = 2.73 cm 0010706434) AoV Area, Vmax (test code = 2.24 cm2 4574618143) AoV Area, VTI (test code = 2.25 cm2 3091718642) AoV Mean PG (test code = mmHg 3386135863) AoV Peak PG (test code = mmHg 4692959565) AoV Vmax (test code = 3779154030) 1.46 m/s AoV VTI (test code = 8189196706) 0.28 m IVS,d (test code = 6138258555) 0.72 cm IVS/LVPW,2D (test code = 8081443144) Left Atrium Dimension Anterior 2.68 cm (test code = 4656332855) LV,d (test code = 7470356797) 3.69 cm LV EF,2D (test code = 7686761437) 79.68 % LV,s (test code = 7920450485) 2.17 cm LVOT area (test code = 2474153192) 2.75 cm2 LVOT Diam,S (test code = 1.87 cm 8489963944) LVOT Vmax (test code = 9988644369) 1.18 m/s LVOT VTI (test code = 7655543093) 0.23 m LVPWD,d (test code = 1475984138) 0.65 cm PV Pk Grad (test code = 2687762668) mmHg PV VMAX (test code = 4449734676) 0.84 m/s RVOT Vmax (test code = 7971393849) 0.85 m/s RVSP (TR) (test code = 4978337704) mmHg TR Vpeak (test code = 2648855469) 2.86 mm/s MV E A ratio (test code = 2005160355) RA pressure (test code = mmHg 9666439227) TR pk grad (test code = 6020915042) mmHg MR Vmax (test code = 9426297579) 5.49 m/s E wave decelartion time (test code msec = 0521594368) MV Peak A Alf (test code = 0.76 m/s 3103061279) MV valve area p 1/2 method (test 3.26 cm2 code = 3406702505) MV Peak E Alf (test code = 0.92 m/s 4666472740) MV stenosis pressure 1/2 time (test 67.54 ms code = 0520754159) LVOT stroke volume (test code = 0.63 cm3 5094484258) AV LVOT peak gradient (test code = mmHg 8491854994) RVSP (test code = 1043233155) mmHg Ao Root Diameter (test code = 2.73 cm 3969675009) MV mean gradient (test code = mmHg 7469848509) LV SYS VOL (test code = 4635095508) 15.61 ml LV MARTINS VOL (test code = 57.63 ml 1101490948) LA area s A4C (test code = 11.16 cm2 3211364332) LV SV Teich 2D (test code = 42.02 ml 1577425639) LV Vol s Teich PSAX (test code = 15.61 ml 9177403059) MR peak grad (test code = mmHg 1216451620) MV Vmax (test code = 1008856397) 1.21 m MV VTI Tips (test code = 0.24 m 8205183837) RVOT pk grad (test code = mmHg 7011229620) AoV Vmn (test code = 8495393182) LV FS Teich 2D (test code = 3108871575) MV AE ratio (test code = 5909230752) LV FS Cube 2D (test code = 4380954894) LVOT Vmn (test code = 6802775402) Aov area Vmn (test code = 2.13 cm2 9413083235) LVOT mean grad (test code = mmHg 4672635507) MAX Pred HR (test code = 7930642488) 85 of MPHR (test code = 9819436926) Calc MPHR (test code = 6550265874) bpm LV SV Cube 2D (test code = 39.93 ml 3049085416) LV vol d cube 2D (test code = 50.11 ml 5373977535) LV vol s cube 2D (test code = 10.18 ml 7153628790) MV Decel slope (test code = 3.97 m/s2 5842234538) Pred Exer Dur R1 (test code = 4455678950) Pred METS R1 (test code = 6438687237) LA Vol MOD A4C (test code = 24.20 ml 5119803539) Velocity Ratio (V1/V2) (test code = 0.81 m/s 4689) EF (test code = 1107652904) 72.91 % E/A ratio (test code = 9093539869) LVOT VTI (CM) (test code = 23.00 cm 3425224835) SOMMER (test code = SOMMER) [facility] [id number] 17:32:37 Test Item Value Reference Range Interpretation Comments POC glucose (test code = 49873-6) 207 mg/dL 65-99 H Lab Interpretation (test code = Abnormal 00315-8) [facility] duplex venous lower [id number] 01:17:37 EXAMINATION: US DUPLEX VENOUS LOWER EXTREMITY [...] is no evidence of deep venous thrombosis. [id number] Interface, Radiology Results 03/17/2021 8:20 PM CDT [...] is flow in the visualized calf veins.There isno evidence of a popliteal or Segal's cyst.IMPRESSION:Normal bilateral lower extremity venous Doppler examination. There is no evidence of deep venous thrombosis.[id number] HospitalXR Chest 1 Vw [id number] 21:32:52EXAMINATION: XR CHEST 1 VW PORTABLE CLINICAL HISTORY: 40 years Female SOB COMPARISON: None. IMPRESSION: Lines, tubes, and devices: Right-sided transvenous cardiac pacemaker. Heart and mediastinum: Cardiomediastinal silhouette is normal. Lungs and pleura: There is no focal airspace disease, pleural effusion or pneumothorax. Bones/soft tissues: No acute osseous abnormality. [facility]-[id number] Dictated and approved by interventional radiology technologist/fellow: Cristhian Calixto M.D. I, Jan Scott MD, personally reviewed the images and resident's/fellow's findings and agree with the final report.[facility], Radiology Results 03/17/2021 4:35 PM CDT EXAMINATION: XR CHEST 1 VW PORTABLECLINICAL HISTORY: 40 years Female SOBCOMPARISON: None.IMPRESSION:Lines, tubes, and devices: Right-sided transvenous cardiac pacemaker.Heart and mediastinum: Cardiomediastinal silhouette is normal.Lungs and pleura: There is no focal airspace disease, pleural effusion or pneumothorax.Bones/soft tissues: No acute osseous abnormality.[facility]-[id number] and approved by interventional radiology technologist/fellow: Aleksandra Sanchez, Jan Scott MD, personally reviewed theimages and resident's/fellow's findings and agree with the final report.[facility] CenterARRYTHMIA IMPLANT REPORT - [id number] 20:45:31 Ordered by an unspecified provider.[facility] ED Preliminary Interpretation - Not an [id number] 20:36:46 Test Item Value Reference Range Interpretation Comments SOMMER (test code = SOMMER) Lab Interpretation (test code = Abnormal 68776-2) [facility] Metabolic [id number] 07:01:00 Test Item Value Reference Range Interpretation Comments Sodium (test code = 137 meq/L 982-013 2517-2) Potassium (test code = 4.3 meq/L 3.5-5.1 2823-3) Chloride (test code = 104 meq/L 98-107 2075-0) CO2 (test code = 24 meq/L 2027-9) BUN (test code = 15 mg/dL - 3094-0) Creatinine (test code 0.81 mg/dL 0.57-1.25 = 2160-0) Glucose (test code = 108 mg/dL 70-105 H 2345-7) Calcium (test code = 9.2 mg/dL 8.4-10.2 42013-6) EGFR (test code = 79 mL/min/1.73 [place] [address]-7) NOT ACCURATE CREATININE CLEARANCE IN PREDICTING GLOMERULAR FILTRATION RATE . ESTIMATED GFR I S NOT APPLICABLE FOR DIALYSIS PATIENTS. SOMMER (test code = SOMMER) Tankage Grinder ID - PIAYA L Lab Interpretation Abnormal (test code = 36482-2) [facility] 07:01:00 Test Item Value Reference Range Interpretation Comments Magnesium (test code = 2.5 mg/dL 1.6-2.6 30153-2) SOMMER (test code = SOMMER) Tankage Grinder ID - PIAYA L Lab Interpretation (test Normal code = 60784-7) [facility] Center[facility]osphorus2021-[facility]-21 07:01:00 Test Item Value Reference Range Interpretation Comments Phosphorus (test code = 4.3 mg/dL 2.3-4.7 7-1) SOMMER (test code = SOMMER) Tankage Grinder ID - PIAYA L Lab Interpretation (test Normal code = 37786-6) [facility] CenterBASIC METABOLIC [id number] 07:01:00 Test Item Value Reference Range Interpretation [...] S NOT APPLICABLE FOR DIALYSIS PATIEN TS. Tankage Grinder ID - MACHELLE [id number] 07:01:00 Test Item Value Reference Range Interpretation Comments MAGNESIUM (BEAKER) (test code = 2.5 mg/dL 1.6-2.6 627) Tankage Grinder ID - PIDEANN [id number] 07:01:00 Test Item Value Reference Range Interpretation Comments PHOSPHORUS (BEAKER) (test code = 4.3 mg/dL 2.3-4.7 604) Tankage Grinder ID - MACHELLE LCBC with platelet count + automated [id number] 05:37:00 Test Item Value Reference Range Interpretation Comments WBC (test code = 6690-2) 6.8 See_Comment [A utomated message] The system [employer] generated this result transmitted ref erence range: 3.5 - 10 .5 K/L. The refe rence range was not u sed to interpret this result as normal/abnor mal. RBC (test code = 789-8) 5.14 See_Comment [Au tomated message] The system [employer] generated this result transmitted ref erence range: 3.93 - 5 .22 M/L. The refe rence range was not u sed to interpret this result as normal/abnor mal. MCHC (test code = 786-4) 31.6 See_Comment L [A utomated message] The system [employer] generated this result transmitted ref erence range: [...] See_Comment [Aut omated message] 777-3) The system [employer] generated this result transmitted ref erence range: 150 - 45 0 K/CU MM. The referen ce range was not u sed to interpret this result as normal/abnor mal. MPV (test code = 10.0 fL 9.4-12.3 08487-7) nRBC (test code = 413) 0 See_Comment [Aut omated message] The system [employer] generated this result transmitted ref erence range: [...] See_Comment [Aut omated message] 670) The system [employer] generated this result transmitted ref erence range: 1.56 - 6 .13 K/L. The refe rence range was not u sed to interpret this result as normal/abnor mal. # Lymphs (test code = 2.10 See_Comment [Auto mated message] 414) The system [employer] generated this result transmitted ref erence range: 1.18 - 3 .74 K/L. The refe rence range was not u sed to interpret this result as normal/abnor mal. # Monos (test code = 0.48 See_Comment H [Autom ated message] 415) The system [employer] generated this result transmitted ref erence range: 0.24 - 0 .36 K/L. The refe rence range was not u sed to interpret this result as normal/abnor mal. # Eos (test code = 416) 0.26 See_Comment [Au tomated message] The system [employer] generated this result transmitted ref erence range: 0.04 - 0 .36 K/L. The refe rence range was not u sed to interpret this result as normal/abnor mal. # Baso (test code = 417) 0.04 See_Comment [A utomated message] The system [employer] generated this result transmitted ref erence range: 0.01 - 0 .08 K/L. The refe rence range was not u sed to interpret this result as normal/abnor mal. Immature 1 % 0-1 Granulocytes-Relative (test code = 2801) Lab Interpretation (test Abnormal code = 60454-2) [facility] W/PLT COUNT & AUTO [id number] 05:37:00 Test Item Value Reference Range Interpretation [...] code = 2801) MR, MRA, BRAIN, WITHOUT [id number] 16:54:00Reason for exam:->Ischemic Stroke EvaluationMETHODIST HOSPITAL OF [facility]THER[facility] CALIF[facility]NIAName: [facility] HOUSE : 1980 Sex: FFINAL REPORT MR, BRAIN, WITHOUT CONTRAST, MR, MRA, BRAIN, WITHOUT CONTRAST, MR, MRA, NECK, WITHOUT IV CONTRAST INDICATION: Stroke, follow upIschemic Stroke Evaluation TECHNIQUE: Multiplanar, multisequence MR imaging of the brain without intravenous contrast.MRA of the head utilizing 3-D lift-ae-zqdyph technique, with 3-D reconstructions.MRA of the neck utilizing 2-D and 3-D xncf-ps-khnhzz technique, with 3-D reconstructions. COMPARISON: MRI and [...] 02/11/2021 16:54:16 MR, MRA, NECK, WITHOUT IV [id number] 16:54:00Reason for exam:->Ischemic Stroke Evaluation [facility] HOUSE : 1980 Sex: FFINAL REPORT MR, BRAIN, WITHOUT CONTRAST, MR, MRA, BRAIN, WITHOUT CONTRAST, MR, MRA, NECK, WITHOUT IV CONTRAST INDICATION: Stroke, follow upIschemic Stroke Evaluation TECHNIQUE: Multiplanar, multisequence MR imaging of the brain without intravenous contrast.MRA of the head utilizing 3-D xqob-wj-ddhkpo technique, with 3-D reconstructions.MRA of the neck utilizing 2-D and 3-D fyhu-zu-aiohpt technique, with 3-D reconstructions. COMPARISON: MRI and [...] Verified Date/Time: 02/11/2021 16:54:16 MR, BRAIN, WITHOUT [id number] 16:54:00Reason for exam:->Ischemic Stroke Evaluation [facility]SE : 1980 Sex: FFINAL REPORT MR, BRAIN, WITHOUT CONTRAST, MR, MRA, BRAIN, WITHOUT CONTRAST, MR, MRA, NECK, WITHOUT IV CONTRAST INDICATION: Stroke, follow upIschemic Stroke Evaluation TECHNIQUE: Multiplanar, multisequence MR imaging of the brain without intravenous contrast.MRA of the head utilizing 3-D kdxx-sc-jjphra technique, with 3-D reconstructions.MRA of the neck utilizing 2-D and 3-D ttid-tj-deejgo technique, with 3-D reconstructions. COMPARISON: MRI and [...] Date/Time: 02/11/2021 16:54:16 MR brain without IV [id number] 16:54:00Interface, External Ris In - 02/11/2021 4:56 PM CDTFINAL REPORT MR, BRAIN, WITHOUT CONTRAST, MR, MRA, BRAIN, WITHOUT CONTRAST, MR, MRA, NECK, WITHOUT IV CONTRAST INDICATION: Stroke, follow upIschemic Stroke Evaluation TECHNIQUE: Multiplanar, multisequence MR imaging of the brain without intravenous contrast.MRA of the head utilizing 3-D hslb-dl-zrqeph technique, with 3-D reconstructions.MRA of the neck utilizing 2-D and 3-D kssu-qg-ytgunf technique, with 3-D reconstructions. COMPARISON: MRI and [...] Lakshmi Amador Verified Date/Time: 02/11/2021 16:54:16 [facility] [id number] 16:54:00Interface, External Ris In - 02/11/2021 4:56 PM CDTFINAL REPORT MR, BRAIN, WITHOUT CONTRAST, MR, MRA, BRAIN, WITHOUT CONTRAST, MR, MRA, NECK, WITHOUT IV CONTRAST INDICATION: Stroke, follow upIschemic Stroke Evaluation TECHNIQUE: Multiplanar, multisequence MR imaging of the brain without intravenous contrast.MRA of the head utilizing 3-D wkwo-bd-yfmjrd technique, with 3-D reconstructions.MRA of the neck utilizing 2-D and 3-D psin-ms-jisypf technique, with 3-D reconstructions. COMPARISON: MRI and [...] Amador MDReport Verified Date/Time: 02/11/2021 16:54:16 [facility] without IV [id number] 16:54:00Interface, External Ris In - 02/11/2021 4:56 PM CDTFINAL REPORT MR, BRAIN, WITHOUT CONTRAST, MR, MRA, BRAIN, WITHOUT CONTRAST, MR, MRA, NECK, WITHOUT IV CONTRAST INDICATION: Stroke, follow upIschemic Stroke Evaluation TECHNIQUE: Multiplanar, multisequence MR imaging of the brain without intravenous contrast.MRA of the head utilizing 3-D tcpg-hg-rdganc technique, with 3-D reconstructions.MRA of the neck utilizing 2-D and 3-D lstk-rf-luuykq technique, with 3-D reconstructions. COMPARISON: MRI and [...] Lakshmi Amador Verified Date/Time: 02/11/2021 16:54:16 [facility]PR2021-[facility] 14:02:00 Test Item Value Reference Range Interpretation Comments RPR (test code = 06614-1) Nonreactive Nonreactive Lab Interpretation (test code = Normal 74912-3) [facility] 14:02:00 Test Item Value Reference Range Interpretation Comments RPR SCREEN (BEAKER) (test code = Nonreactive Nonreactive 420) Hemoglobin [id number] 09:35:00 Test Item Value Reference Range Interpretation Comments Hemoglobin A1C (test code = 4548-4) 6.0 % 4.3-6.1 Lab Interpretation (test code = Normal 94832-5) [facility] CenterHEMOGLOBIN [id number] 09:35:00 Test Item Value Reference Range Interpretation Comments HEMOGLOBIN A1C (BEAKER) (test code = 6.0 % 4.3-6.1 368) Rapid drug screen, [id number] 07:26:00 Test Item Value Reference Range Interpretation Comments Barbiturate Screen Negative Negative (test code = 09602-9) Benzodiazepine Screen Negative Negative (test code = 18307-2) Cocaine (Metab.) Negative Negative Screen (test code = 3397-7) Methadone Screen (test Negative Negative code = 03051-4) Opiate Screen (test Negative Negative code = 01402-8) Cannabinoid Screen Negative Negative (test code = 04430-1) Amph/Methamph Screen Negative Negative (test code = 32652-9) Phencyclidine Screen Negative Negative (test code = 99778-1) pH, UA (test code = 6.5 5.0-8.0 5803-2) SOMMER (test code = SOMMER) DRUG CUTOFF CONC.Cocaine 300 ng/mL Cannabinoid 50 ng/mLBenzodiazepine 200 ng/mLBarbiturate 200 ng/mLPhencyclidine 25 ng/mLOpiate 300 ng/mLMethadone 300 ng/mLAmphetamine/ 1000 ng/mL Methamphetamine This assay provides an unconfirmed qualitative test result for the clinical management of patients in emergency situations. Chain of custody not maintained. Some lslc-gdv-pqepkuz medications, as well as adulterants, may cause inaccurate results. Clinical correlation should be applied. A more comprehensive drug screen or confirmation of a detected drug may be performed upon request.Tankage Grinder ID - VIET M Lab Interpretation Normal (test code = 60919-8) [facility] CenterRAPID DRUG SCREEN, [id number] 07:26:00 Test Item Value Reference Range Interpretation [...] situations. Chain of custody not maintained. Some wmyn-uta-eatgldp medications, as well as adulterants, may cause inaccurate results. Clinical correlation should be applied. A more comprehensive drug screen or confirmation of a detected drug may be performed upon request.Tankage Grinder ID - VIET MUrinalysis with Microscopic If Ovtydcket4850-87-22 07:11:00 Test Item Value Reference Range Interpretation Comments Color, UA (test code = Light Yellow 5778-6) Clarity, UA (test code = Clear 5767-9) Specific [place], UA (test 1.012 1.001-1.035 code = 5811-5) pH, UA (test code = 6.5 5.0-8.0 5803-2) Protein, UA (test code = Negative Negative 28293-5) Glucose, UA (test code = Negative Negative 365) Ketones, UA (test code = Negative Negative 2514-8) Bilirubin, UA (test code = Negative Negative 05099-9) Blood, UA (test code = Small Negative A 62910-2) Nitrite, UA (test code = Negative Negative 5802-4) Leukocytes, UA (test code Small Negative A = 5799-2) Urobilinogen, UA (test 0.2 mg/dL 0.2-1 code = 51765-3) Specimen Source (test code = 2795) SOMMER (test code = SOMMER) Tankage Grinder ID - [auto]Tankage Grinder ID - tech Lab Interpretation (test Abnormal code = 03118-8) [facility] Center[facility]inal[facility] Microscopic [id number] 07:11:00 Test Item Value Reference Range Interpretation Comments RBC, UA (test 11 See_Comment [Automated me ssage] code = 32368-3) The system [employer] generated this result transmitted ref erence range: [...] essage] UA (test code = The system [employer] [facility] 40404-0) generated this result transmitted ref erence range: /HPF. Th e reference range was not used to int erpret this result as normal/abnormal . SOMMER (test code Tankage Grinder ID - tech = SOMMER) [facility] CenterURINALYSIS WITH MICROSCOPIC IF [id number] 07:11:00 Test Item Value Reference Range Interpretation [...] = 463) SOURCE(BEAKER) (test code = 2795) Tankage Grinder ID - [auto]Tankage Grinder ID - techURINALYSIS SCOVLOBHMKW6852-16-04 07:11:00 Test Item Value Reference Range Interpretation Comments RBC UA (BEAKER) (test code = 519) 11 /HPF WBC UA (BEAKER) (test code = 520) 11 /HPF MUCUS (BEAKER) (test code = 1574) Rare SQUAMOUS EPITHELIAL (BEAKER) (test 3 /HPF code = 516) Tankage Grinder ID - techDigoxin oaasm5558-59-42 06:22:00 Test Item Value Reference Range Interpretation Comments Digoxin Lvl (test code = <0.30 0.8-2 L 68174-9) SOMMER (test code = SOMMER) Tankage Grinder ID - MACHELLE L Lab Interpretation (test Abnormal code = 16658-0) [facility] CenterDIGOXIN [id number] 06:22:00 Test Item Value Reference Range Interpretation Comments DIGOXIN LEVEL (BEAKER) (test code = < ng/mL 0.80-2.00 L 669) Tankage Grinder ID - MACHELLE CSsfjzkfcxmoj3000-26-68 05:58:00 Test Item Value Reference Range Interpretation Comments Homocysteine (test code = 7.3 umol/L 5.1-15.4 93373-2) SOMMER (test code = SOMMER) Tankage Grinder ID - SHAMIKAAYA L Lab Interpretation (test Normal code = 57449-6) [facility] CenterTSH/Free T4 If Xoenmirqb0623-56-31 05:58:00 Test Item Value Reference Range Interpretation Comments TSH (test code = 4.368 See_Comment [Automated 32982-8) message] The system which generated this result transmit aida reference range : 0.350 - 4.940 uIU/mL. The reference range was not used to interpret this result as normal/abnormal . SOMMER (test code = SOMMER) Tankage Grinder ID - MACHELLE L Lab Interpretation Normal (test code = 30373-4) [facility] CenterVitamin B12 and Bmfrih9626-47-64 05:58:00 Test Item Value Reference Range Interpretation Comments Vitamin B12 (test 557 pg/mL 213-816 code = 2132-9) Folate (test code = 11.20 ng/mL See_Comment [Automa aida 2284-8) message] The system which generated this result transmit aida reference range : >=7.00. The reference range was not used to interpret this result as normal/abnormal . SOMMER (test code = SOMMER) Tankage Grinder ID - MACHELLE L Lab Interpretation Normal (test code = 73283-3) [facility] CenterUtmbxsDNYVCDYFJRFC5702-62-07 05:58:00 Test Item Value Reference Range Interpretation Comments HOMOCYSTEINE (BEAKER) (test code = 7.3 umol/L 5.1-15.4 642) Tankage Grinder ID - MACHELLE LTSH/FREE T4 IF [id number] 05:58:00 Test Item Value Reference Range Interpretation Comments THYROID STIMULATING HORMONE 4.368 uIU/mL 0.350-4.940 (BEAKER) (test code = 772) Tankage Grinder ID - MACHELLE LVITAMIN B12 AND [id number] 05:58:00 Test Item Value Reference Range Interpretation Comments VITAMIN B12 557 pg/mL 213-816 (BEAKER) (test code = 774) FOLATE (BEAKER) 11.20 ng/mL See_Comment [Automated message] (test code = 362) The system which generated this result transmitted ref erence range: >=7.00. The reference range was not used to interpr et this result as normal/abnormal . Tankage Grinder ID - SHAMIKADEANN LC-Reactive Usxyugq7383-36-08 04:54:00 Test Item Value Reference Range Interpretation Comments CRP (test code = 676) 0.81 mg/dL 0-0.5 H SOMMER (test code = SOMMER) Tankage Grinder ID - MACHELLE L Lab Interpretation (test Abnormal code = 83613-5) [facility]Wj[facility]LFYRT[facility]UNP0401-57-44 04:54:00 Test Item Value Reference Range Interpretation Comments MAGNESIUM (BEAKER) 2.1 mg/dL 1.6-2.6 Specimen slightly (test code = 627) hemolyzed Tankage Grinder ID - MACHELLE TXWFGGWUOHZ8766-53-10 04:54:00 Test Item Value Reference Range Interpretation Comments PHOSPHORUS (BEAKER) 4.3 mg/dL 2.3-4.7 Specimen slightly (test code = 604) hemolyzed Tankage Grinder ID - MACHELLE LBASIC METABOLIC [id number] 04:54:00 Test Item Value Reference Range Interpretation [...] S NOT APPLICABLE FOR DIALYSIS PATIEN TS. Tankage Grinder ID - MACHELLE LC-REACTIVE FVZGARL1083-16-23 04:54:00 Test Item Value Reference Range Interpretation Comments C-REACTIVE PROTEIN (BEAKER) (test 0.81 mg/dL 0.00-0.50 H code = 676) Tankage Grinder ID - MACHELLE LCBC W/PLT COUNT & AUTO [id number] 02:54:00 Test Item Value Reference Range Interpretation [...] = 2801) RAD, CHEST, 1 VIEW, NON [id number] 22:40:00Reason for exam:->strokeShould this be performed at the bedside?->Yes [facility] 1980 Sex: FFINAL REPORT RAD, CHEST, 1 VIEW, NON DEPT TECHNIQUE: Frontal view(s) of the chest. INDICATION: stroke. COMPARISON: 08/20/2018 chest radiograph FINDINGS/IMPRESSION: Lines/Tubes: Unchanged 2-lead pacemaker Lungs/pleura: No focal consolidation or definite interstitial pulmonary edema.No pleural effusion. No pneumothorax. Heart and Mediastinum: Unremarkable. Soft Tissues and Bones: Unremarkable. Signed: Wilmer Nieves Verified Date/Time: 02/10/2021 22:40:02 Reading Location: [address] Transitional Reading Room XR chest 1 view portable / [id number] 22:40:00Interface, External Ris In - 02/10/2021 10:42 [...] Nieves Verified Date/Time: 02/10/2021 22:40:02 Reading Location: [address] Transitional Reading Room [facility] W/PLT COUNT & AUTO [id number] 22:16:00 Test Item Value Reference Range Interpretation [...] Range Interpretation Comments BNP (test code = 98632-8) <10 0-100 SOMMER (test code = SOMMER) Tankage Grinder ID - BS Lab Interpretation (test Normal code = 37069-0) [facility] CenterB-TYPE NATRIURETIC FACTOR (BNP)2021-02-10 22:04:00 Test Item Value Reference Range Interpretation Comments B-TYPE NATRIURETIC PEPTIDE (BEAKER) < pg/mL 0-100 (test code = 700) Tankage Grinder ID - BSHigh Sensitivity Troponin I ([facility]/Haley Only)2021-02-10 21:57:00 Test Item Value Reference Range Interpretation Comments Troponin I HS (test <4 See_Comment [Automa aida code = 05228-8) message] The system which generated this result transmitted reference range : <=17 pg/ml. The reference range was not used to interpret this result as normal/abnormal . SOMMER (test code = Tankage Grinder ID - SOMMER) BSThe HOTEL CLERK STAT High Sensitivity Troponin-I results should be used in conjunction with other diagnostic information such as ECG, clinical observations and information, and patient symptoms to aid in the diagnosis of PA. Lab Interpretation Normal (test code = 75362-5) [facility] CenterHIGH SENSITIVITY TROPONIN [id number] 21:57:00 Test Item Value Reference Range Interpretation Comments HIGH SENSITIVITY < pg/ml See_Comment [Automated message] TROPONIN I (test code = The system which 8232851) generated this result transmitted ref erence range: <=17. Th e reference range was not used to interpr et this result as normal/abnormal . Tankage Grinder ID - BSThe HOTEL CLERK STAT High Sensitivity Troponin-I results should be used in conjunctionwith other diagnostic information such as ECG, clinical observations and information, and patient symptoms to aid in the diagnosis of PA.Lipid [id number] 21:54:00 Test Item Value Reference Range Interpretation Comments Triglycerides (test 171 mg/dL Specimen code = 2571-8) markedly hemolyzed Cholesterol (test 218 mg/dL Specimen code = 2093-3) markedly hemolyzed HDL (test code = 47 mg/dL 2084-9) LDL Calculated (test 137 mg/dL code = 15705-9) SOMMER (test code = Triglyceride SOMMER) Reference Range: Low Risk <150 Borderline 150-199 High Risk 200-499 Very High Risk >=500 Cholesterol Reference Range: Low Risk <200 Borderline 200-239 High Risk >240 HDL Cholesterol Reference Range: Low Risk >=60 High Risk <40 LDL Cholesterol Reference Range: Optimal <100 Near Optimal 100-129 Borderline 130-159 High 160-189 Very High >=190 Tankage Grinder ID - BS [facility] CenterLIPID [id number] 21:54:00 Test Item Value Reference Range Interpretation [...] Borderline 130-159 High 160-189 Very High >=190 Tankage Grinder ID - BSComprehensive metabolic oeuwu2655-76-97 21:52:00 Test Item Value Reference Range Interpretation Comments Protein, Total 8.0 See_Comment Specimen slig htly (test code = hemolyzed 2885-2) [Automated message] The system which generated this result transmit aida reference range : 6.0 - 8.3 gm/dL . The reference range was not u sed to interpret th is result as normal/abnormal . Albumin (test code 4.2 g/dL 3.5-5 Specimen slightly = 50197-9) hemolyzed Alkaline 135 U/L 40-150 Phosphatase (test code = 6768-6) Total Bilirubin 0.2 mg/dL 0.2-1.2 Specimen sli ghtly (test code = hemolyzed 1974-) Sodium (test code = 139 meq/L 317-193 1682-2) Potassium (test 4.5 meq/L 3.5-5.1 Specimen i tly code = 2823-3) hemolyzed Chloride (test code 103 meq/L 98-107 = 2075-0) CO2 (test code = 25 meq/L -29 2027-9) BUN (test code = 9 mg/dL 7-21 3094-0) Creatinine (test 0.78 mg/dL 0.57-1.25 Specimen [facility] code = 2160-0) hemolyzed Glucose (test code 105 mg/dL 70-105 = 2345-7) Calcium (test code 9.6 mg/dL 8.4-10.2 = 75205-0) AST (test code = 28 U/L 5-34 Specimen [facility] 1920-8) hemolyzed ALT (test code = 52 U/L 6-55 Specimen [facility] 1742-6) hemolyzed EGFR (test code = 82 mL/min/1.73 [place] [address]-7) NOT ACCURATE CREATININE CLEARANCE IN PREDICTING GLOMERULAR FILTRATION RATE . ESTIMATED GFR I S NOT APPLICABLE FOR DIALYSIS PATIEN TS. SOMMER (test code = Tankage Grinder ID - BS SOMMER) [facility] CenterCreatine Kinase (CK)2021-02-10 21:52:00 Test Item Value Reference Range Interpretation Comments Total CK (test code = 70 U/L 29-200 7-6) SOMMER (test code = SOMMER) Tankage Grinder ID - BS Lab Interpretation (test Normal code = 75553-2) [facility] CenterMAGNESIUM2021-05-19 21:52:00 Test Item Value Reference Range Interpretation Comments MAGNESIUM (BEAKER) 2.2 mg/dL 1.6-2.6 Specimen slightly (test code = 627) hemolyzed Tankage Grinder ID - [id number] 21:52:00 Test Item Value Reference Range Interpretation Comments PHOSPHORUS (BEAKER) 4.4 mg/dL 2.3-4.7 Specimen slightly (test code = 604) hemolyzed Tankage Grinder ID - BSCOMPREHENSIVE METABOLIC DTUKS0314-22-27 21:52:00 Test Item Value Reference Range Interpretation [...] S NOT APPLICABLE FOR DIALYSIS PATIEN TS. Tankage Grinder ID - BSCREATINE KINASE (CK)2021-02-10 21:52:00 Test Item Value Reference Range Interpretation Comments CREATINE KINASE TOTAL (BEAKER) (test 70 U/L 29-200 code = 380) Tankage Grinder ID - UEfDGD2474-72-15 21:46:00 Test Item Value Reference Range Interpretation Comments PTT (test code = 00446-8) 30.5 See_Comment [ Automated message] The system whic h generated this result transmitted ref erence range: 22.5 - 3 6.0 seconds. The re ference range was not u sed to interpret this result as normal/abnor mal. Lab Interpretation (test Normal code = 37983-1) [facility] CenterLactic acid, [id number] 21:46:00 Test Item Value Reference Range Interpretation Comments Lactate, Venous (test 1.96 mmol/L 0.5-2.2 Specim en code = 2872) markedly hemolyzed SOMMER (test code = SOMMER) Tankage Grinder ID - BS Lab Interpretation Normal (test code = 99107-9) [facility] CenterAPTT2021-05-19 21:46:00 Test Item Value Reference Range Interpretation Comments PARTIAL THROMBOPLASTIN TIME 30.5 seconds 22.5-36.0 (BEAKER) (test code = 760) LACTIC ACID, [id number] 21:46:00 Test Item Value Reference Range Interpretation Comments LACTATE BLOOD VENOUS 1.96 mmol/L 0.50-2.20 Specime n markedly (2) (BEAKER) (test hemolyzed code = 2872) Tankage Grinder ID - BSProthrombin time/[id number] 21:45:00 Test Item Value Reference Interpretation Comments Range Protime (test code = 12.7 See_Comment [Autom ated 5902-2) message] The system which generated this result transmitted reference range : 11.9 - 14.2 seconds. The reference range was not used to interpret this result as normal/abnormal . INR (test code = 0.98 See_Comment [Automated 4311-6) message] The system which generated this result [...] valves. Lab Interpretation Normal (test code = 79608-1) [facility] CenterPROTHROMBIN TIME/[id number] 21:45:00 Test Item Value Reference Range Interpretation Comments PROTIME (ARNOL) 12.7 seconds 11.9-14.2 (test code = 759) INR (ARNOL) (test 0.98 See_Comment [Automat ed message] code = 370) The system [employer] generated this result transmitted ref erence range: <=5.90. The reference range was not used to int erpret this result as normal/abnormal . RECOMMENDED COUMADIN/WARFARIN INR THERAPY RANGESSTANDARD DOSE: 2.0 - 3.0 Includes: PROPHYLAXIS for venous thrombosis, systemic embolization; TREATMENT for venous thrombosis and/or pulmonary embolus.HIGH RISK: Target INR is 2.5-3.5 for patients with mechanical heart valves.POC-Glucose [id number] 21:39:00 Test Item Value Reference Range Interpretation Comments POC-Glucose Meter (test 93 mg/dL 70-110 : TE STED AT [facility] code = 1538) [address] [facility], [address]: Tankage Grinder/Techni rhonda ID = [id number] for AILYN JAVIER Lab Interpretation (test Normal code = 77985-8) [facility] CenterPOCT-GLUCOSE [id number] 21:39:00 Test Item Value Reference Range Interpretation Comments POC-GLUCOSE METER 93 mg/dL 70-110 : TESTED A T [facility] 6720 (BEAKER) (test code = [place], 1538) [address]: Tankage Grinder/Techni rhonda ID = [id number] for GERTRUDE SHAY [id number] 15:45:00 Test Item Value Reference Range Interpretation Comments SURG (test code = SURG) RUN DATE: 09/30/20 [facility] PAGE 1 RUN TIME: 1545 Specimen Inquiry RUN USER: INTERFACE PATIENT: ADAM RIVERA LOC: [place] U #: [id number] AGE/SX: 40/F ROOM: RE09/29/20[facility] DR: Linus Boone MD : [birth year] BED: DIS: [facility]: SPEC #: [id number]:[id number] RECD: 09/29/20 STATUS: MACIEL DEY #: [id number] WU: 09/29/[address]: Linus Boone MD ENTERED: 09/29/20 SP TYPE: SURG OTHR DR: Undefined Provider ORDERED: SURG PATH LVL 4 COPIES TO: Linus Boone MD [address] [place] [address] Undefined Provider HISTOLOGY: TISSUE ID BLK PCS DHIRAJ LEV PROCEDURE DISPOSITION ____ ___ ___ ___ STOMACH, NOS A 1 2 PROCEDURES: SURG PATH LVL 4 (09/29/20) TISSUES: A. STOMACH, NOS - GASTRIC BIOPSY CLINICAL HISTORY R10.13, K21.9, K92.0, R14.0, R11.2, R19.7, R19.4 CPT CODES CPT CODE(S): 10794 , , , , , , FINAL DIAGNOSIS Stomach, biopsy: MILD CHRONIC GASTRITIS NEGATIVE FOR INTESTINAL METAPLASIA, DYSPLASIA, OR MALIGNANCY NEGATIVE FOR HELICOBACTER PYLORI ORGANISMS GROSS DESCRIPTION Gastric biopsy. Received in formalin are two wilkinson tissue fragments, 0.4 cm each, all as A. bk/nr Grossing performed at [facility] Pathology, [address] [place] [address], [address], [place] [address]. Fire Code Inspector: Aditya Hanson M.D. CONTINUED ON NEXT PAGE RUN DATE: 09/30/20 [facility] PAGE 2 RUN TIME: 1545 Specimen Inquiry RUN USER: INTERFACE SPEC #: [facility]:S-11 PATIENT: ADAM RIVERA #[id number] (Continued) MICROSCOPIC DESCRIPTION Gastric biopsy. Sections demonstrate gastric mucosa with mild chronic inflammation. No dysplasia or malignancy is identified. No evidence of Helicobacter pylori organisms or intestinal metaplasia is seen. Signed SIGNATURE ON FILE Hector Issa 09/30/20 1545 END OF REPORT COVID 19 INHOUSE [id number] 13:41:00 Test Item Value Reference Range Interpretation Comments COVID 19 INHOUSE AG NEGATIVE Negative Per marino facturer, (test code = negative result s should [id number]) be treated aspr esumptive and, if inconsi [...] symptoms co nsistent with COVID-19. BASIC METABOLIC [id number] 13:40:00 Test Item Value Reference Range Interpretation [...] MG/DL 8.5-10.1 N - XR CHEST 1 [id number] 13:33:00 [facility] 1980 Sex: F Name: ADAM RIVERA [facility] : 1980 Age/S: 40 / F [address] [address] Unit #: [id number] Loc: [place] [address] Phys: Linus Boone MD Acct: [id number] Dis Date: Status: PRE [facility] PHONE #: [phone] Exam Date: 09/28/2020 1326 FAX #: Reason: PREOP EXAMS: CPT: [id number] XR CHEST 1 V 58805 Fluoro Time: DAP (Gy m2): Air Kerma (mGy): EXAM: CHEST ONE VIEW INDICATION: PREOP LOCATION: B2 COMPARISON: None available TECHNIQUE: AP view of the chest FINDINGS: The heart size is normal.. There is a cardiac pacing device in the right chest with no apparent discontinuity of the leads. The lungs are clear bilaterally. The pulmonary vasculature is normal. No pneumothorax or pleural ef fusion is identified. The osseous structures are normal. IMPRESSION: No acute cardiopulmonary process. at 1333 Reported and signed by: Lynda Pitts M.D. CC: Linus Boone MD PAGE 1 Signed Report Name: ADAM RIVERA : 1980 Age/S: 40 / F [address] [address] Unit #: [id number] Loc: [place] [address] Phys: Linus Boone MD Acct: [id number] Dis Date: Status: PRE SDC PHONE #: [phone] ExamDate: 09/28/2020 1326 FAX #: Reason: PREOP EXAMS: CPT: [id number] XR CHEST 1 V 29771 Fluoro Time: DAP(Gy m2): Air Kerma (mGy): (Continued) Technologist: Shari Davila RT(R)(CT) Trnscb Date/Time: 09/28/2020 (434) 16 Orig Print D/T: S: 09/28/2020 (4155) PAGE 2 Signed Report PROTHROMBIN [id number] 13:29:00 Test Item Value Reference Range Interpretation Comments PT PATIENT (test code = PTP) 10.6 SECONDS 9.3-12.9 N INTERNATIONAL NORMAL RATIO 0.95 INR Unit 0.8-1.2 N (test code = INR) THROMBOPLASTIN TIME [id number] 13:29:00 Test Item Value Reference Range Interpretation Comments THROMBOPLASTIN TIME PARTIAL 28.0 SECONDS 26-35 N (test code = PTT) CBC W/AUTO [id number] 13:26:00 Test Item Value Reference Range Interpretation [...] code NO DIFF/SCN CRITERIA = MDIFF) POCT-GLUCOSE [id number] 10:22:00 Test Item Value Reference Range Interpretation Comments POC-GLUCOSE METER 102 mg/dL 70-110 TESTED AT [facility] [address] ([facility]) (test code = [place] 1538) [address] MR, MRA, BRAIN, WITHOUT [id number] 09:32:00Reason for exam:->Ischemic Stroke EvaluationFINAL REPORT MRA Head CLINICAL HISTORY: Ischemic Stroke TECHNIQUE: MRA of the head utilizing 3-D gyyd-ic-xzadqf technique, with 3-D reconstructions. COMPARISON: None FINDINGS: There is no evidence of intracranial aneurysm, focal stenosis, or major branch vessel occlusion. IMPRESSION: No evidence for a major [place] proximal branch vessel occlusion. MRA Neck CLINICAL HISTORY: Ischemic Stroke TECHNIQUE: MRA of the neck utilizing 2-D and 3-D yvbx-xc-grkqgy technique, with 3-D reconstructions. COMPARISON: None FINDINGS: The carotid arteries in the neck are patent includingtheir bifurcations. There is antegrade flow in the vertebral arteries in the neck. IMPRESSION: No evidence of hemodynamically significant stenosis in the cervical carotid or vertebral arteries by NASCET criteria. Signed: Santos Winn Verified Date/Time: 08/21/2018 09:32:09 Reading Location: [facility] C013 Neuro Reading Room MR, MRA, NECK, WITHOUT IV [id number] 09:32:00Reason for exam:->Ischemic Stroke EvaluationFINAL REPORT MRA Head CLINICAL HISTORY: Ischemic Stroke TECHNIQUE: MRA of the head utilizing 3-D hlte-xx-bmcxrh technique, with 3-D reconstructions. COMPARISON: None FINDINGS: There is no evidence of intracranial aneurysm, focal stenosis, or major branch vessel occlusion. IMPRESSION: No evidence for a major [place] proximal branch vessel occlusion. MRA Neck CLINICAL HISTORY: Ischemic Stroke TECHNIQUE: MRA of the neck utilizing 2-D and 3-D xkhf-nl-mehegy technique, with 3-D reconstructions. COMPARISON: None FINDINGS: The carotid arteries in the neck are patent includingtheir bifurcations. There is antegrade flow in the vertebral arteries in the neck. IMPRESSION: No evidence of hemodynamically significant stenosis in the cervical carotid or vertebral arteries by NASCET criteria. Signed: Santos Winn Verified Date/Time: 08/21/2018 09:32:09 Reading Location: [facility] B1 C013V Neuro Reading Room MR, BRAIN, WITHOUT [id number] 09:25:00Reason for exam:->Ischemic Stroke EvaluationFINAL REPORT MRI [...] MDReport Verified Date/Time: 08/21/2018 09:25:25 Reading Location: [facility] C0[facility] Neuro Reading Room POCT-GLUCOSE [id number] 21:26:00 Test Item Value Reference Range Interpretation Comments POC-GLUCOSE METER 119 mg/dL 70-110 H TESTED AT [place] [address] ([facility]) (test code = [facility] [employer] [place] [address]) [address] POCT-GLUCOSE [id number] 18:03:00 Test Item Value Reference Range Interpretation Comments POC-GLUCOSE METER 119 mg/dL 70-110 H TESTED AT [place] [address] ([facility]) (test code = [employer] [facility] 1538) [address] POCT-GLUCOSE [id number] 12:39:00 Test Item Value Reference Range Interpretation Comments POC-GLUCOSE METER 120 mg/dL 70-110 H TESTED AT [place] [address] ([facility]) (test code = [employer]RI [employer] [facility] 1538) [address] RAD, CHEST, 1 VIEW, NON [id number] 12:04:00Reason for exam:->To Locate Heart Device (Pacemaker)Should [...] mediastinum: Unremarkable.Sandip tional findings: None. Signed: JR Jose, Mart LOWRYeplissette Verified Date/Time: 08/20/2018 12:04:06 Reading Location: [facility] Radiology Reading Room -GLUCOSE [id number] 09:17:00 Test Item Value Reference Range Interpretation Comments POC-GLUCOSE METER 121 mg/dL 70-110 H [facility] AT [place] [address] [facility] (test code = [facility] 1538) [address] BASIC METABOLIC [id number] 06:56:00 Test Item Value Reference Range Interpretation [...] NOT APPLICABLE FOR DIALYSIS PATIEN TS. POCT-GLUCOSE [id number] 21:09:00 Test Item Value Reference Range Interpretation Comments POC-GLUCOSE METER 109 mg/dL 70-110 TESTED AT [facility] 6720 (BEAKER) (test code = [facility] 1538) [address] POCT-GLUCOSE [id number] 17:15:00 Test Item Value Reference Range Interpretation Comments POC-GLUCOSE METER 117 mg/dL 70-110 H TESTED AT [facility] 6720 (BEAKER) (test code = [place] 1538) [address] VITAMIN B12 AND [id number] 06:39:00 Test Item Value Reference Range Interpretation Comments VITAMIN B12 (BEAKER) (test code = 524 pg/mL 213-816 774) FOLATE (BEAKER) (test code = 362) 13.5 ng/mL >=7.0 BASIC METABOLIC [id number] 05:48:00 Test Item Value Reference Range Interpretation [...] S NOT APPLICABLE FOR DIALYSIS PATIEN TS. [id number] 15:42:00 Test Item Value Reference Range Interpretation Comments RPR SCREEN (BEAKER) (test code = Nonreactive Nonreactive 420) HEMOGLOBIN [id number] 09:14:00 Test Item Value Reference Range Interpretation Comments HEMOGLOBIN A1C (BEAKER) (test code = 5.3 % 4.3-6.1 368) TSH/FREE T4 IF [id number] 04:49:00 Test Item Value Reference Range Interpretation Comments THYROID STIMULATING HORMONE 3.18 uIU/mL 0.35-4.94 (BEAKER) (test code = 772) BASIC METABOLIC [id number] 04:38:00 Test Item Value Reference Range Interpretation [...] NOT APPLICABLE FOR DIALYSIS PATIEN TS. LIPID [id number] 04:38:00 Test Item Value Reference Range Interpretation [...] 130-159 High 160-189 Very High >=190HEPATIC FUNCTION [id number] 04:38:00 Test Item Value Reference Range Interpretation [...] (test code = 413) AFB Culture and [id number] 13:24:00Specimen/Source: Wound/PACEMAKERCollected: 09/05/2017 19:45 Status: Final Last Updated: 11/01/2017 13:24 [id number] (Final) (Final) 09/07/17 No acid fast bacill seen on direct smear Culture Result (Final) (Final) 11/01/17 No growth of AFB at six (6) weeksFungus Culture with [id number] 12:12:00Specimen/Source: Wound/PACEMAKERCollected: 09/05/2017 19:45 Status: Final Last Updated: 10/22/2017 12:12 Fungal Smear Result (Final) (Final) 09/06/17 No yeast or hyphae seen Culture Result (Final) (Final) 10/22/17 No fungus isolated at 6 weeks Culture, Blood [id number] 08:23:00Specimen: BloodCollected: 09/04/2017 20:30 Status: Final Last Updated: 09/10/2017 08:23 Culture Result (Final) (Final) No Growth After 5 DaysCulture, Blood [id number] 08:23:00Specimen: BloodCollected: 09/04/2017 20:15 Status: Final Last [...] <=8/4 Susceptible Cefazolin (CFZ) <=4 Susceptible Ceftriaxone (ELECTRICAL SYSTEMS DESIGN ENGINEER) <=4 Susceptible Chloramphenicol (C) <=8 Susceptible Ciprofloxacin (CP) <=1 Susceptible Clindamycin (CM) 0.5 Susceptible Erythromycin (E) <=0.25 Susceptible Gentamicin (GM) <=1 Susceptible Imipenem (IMP) <=4 Susceptible Levofloxacin (LEV) <=0.5 Susceptible Linezolid (LNZ) 4 Susceptible Oxacillin (OX1) 0.5 Susceptible Penicillin (P) >8 Resistant Rifampin (RA) <=1 Susceptible Tetracycline (TE) <=1 Susceptible Trimethoprim/Sulfa <=0.5/9.Susceptible (SXT) 5 Vancomycin (VA) 2 SusceptibleRenal [id number] 08:51:00 Test Item Value Reference Range Interpretation [...] National Kidney Foundation,http :[email or web address] ep.nih.gov CBC with [id number] 07:39:00 Test Item Value Reference Range Interpretation [...] code = ALYMPH) 1.7 K/cumm 0.5-4.6 N Knox Abs (test code = AMONO) 0.3 K/cumm 0.0-1.2 N Eos Abs (test code = AEOS) 0.29 K/cumm 0.00-0.74 N Baso Abs (test code = ABASO) 0.0 K/cumm 0.00-0.21 N Vancomycin, [id number] 12:33:00 Test Item Value Reference Range Interpretation Comments Melony Harman (test code = VANTR) 7.9 ug/mL 10.0-20.0 L Magnesium, [id number] 06:37:00 Test Item Value Reference Range Interpretation Comments Magnesium (test code = MG) 2.4 mg/dL 1.7-2.5 N Renal [id number] 06:29:00 Test Item Value Reference Range Interpretation [...] National Kidney Foundation,http ://nkd ep.nih.gov BHCG, Serum, [id number] 06:26:00 Test Item Value Reference Range Interpretation Comments Preg Qual [Se] (test code = BSHCG) Negative Negative N CBC with [id number] 06:24:00 Test Item Value Reference Range Interpretation [...] code = ALYMPH) 1.6 K/cumm 0.5-4.6 N Knox Abs (test code = AMONO) 0.4 K/cumm 0.0-1.2 N Eos Abs (test code = AEOS) 0.18 K/cumm 0.00-0.74 N Baso Abs (test code = ABASO) 0.0 K/cumm 0.00-0.21 N XR CHEST 1 [id number] 16:29:55XR CHEST 1 VIEWLOCATION: [id number]: None.INDICATION: REVIEW PICC LINE PLACEMENTDISCUSSION:AP chest and [...] = TSH) 3.44 mIU/mL 0.270-4.200 N Lipid [id number] 05:47:00 Test Item Value Reference Range Interpretation Comments Cholesterol (test 160 mg/dL 0-200 N code = CHOL) Triglycerides (test 126 mg/dL 9-200 N code = TRIG) HDL (test code = 35 mg/dL 50-60 L HDL) Chol/HDL (test code 4.6 Ratio 0.0-4.4 H = CHOLPHDL) LDL, Calculated 100 0-130 N (NOTE)RISK O F HEART (test code = LDLC) DISEASEPu blished by [place] Heart AssociationAnal yte Optimal Boderli ne Increased RiskC HOL <200 200-239 >240TRI G <150 150-199 >200HDL Male: >60 <40HDL Fem dimas: >60 <50LDL <100 130 -159 >160LDL NEAR OP TIMAL IS 100-129 VLDL (test code = 25 mg/dL 5-40 N VLDL) LDL/HDL (test code = 3 LDLPHDL) Basic Metabolic [id number] 05:47:00 Test Item Value Reference Range Interpretation [...] the National Kidney Foundation,http ://nkd ep.nih.gov Magnesium, [id number] 05:47:00 Test Item Value Reference Range Interpretation Comments Magnesium (test code = MG) 2.3 mg/dL 1.7-2.5 N CBC with [id number] 05:36:00 Test Item Value Reference Range Interpretation [...] code = ALYMPH) 2.2 K/cumm 0.5-4.6 N Knox Abs (test code = AMONO) 0.3 K/cumm 0.0-1.2 N Eos Abs (test code = AEOS) 0.24 K/cumm 0.00-0.74 N Baso Abs (test code = ABASO) 0.0 K/cumm 0.00-0.21 N Partial Thromboplastin [id number] 21:26:00 Test Item Value Reference Range Interpretation Comments aPTT (test code = PTT) 29.00 seconds 24.39-37.25 N Prothrombin [id number] 21:26:00 Test Item Value Reference Range Interpretation Comments PT (test code = PT) 10.70 seconds 9.78-13.35 N INR (test code = INR) 0.95 Ratio 0.6-1.2 N Comprehensive Metabolic [id number] 21:23:00 Test Item Value Reference Range Interpretation [...] National Kidney Foundation,http ://nkd ep.nih.gov CBC with [id number] 21:16:00 Test Item Value Reference Range Interpretation [...] code = ALYMPH) 2.2 K/cumm 0.5-4.6 N Knox Abs (test code = AMONO) 0.4 K/cumm 0.0-1.2 N Eos Abs (test code = AEOS) 0.17 K/cumm 0.00-0.74 N Baso Abs (test code = ABASO) 0.1 K/cumm 0.00-0.21 N
--- NOTE | 2022-05-20 21:50 | RAD REPORT ---
EXAM DESCRIPTION: CT - Abdomen Pelvis Wo Contrast - 05/20/2022 9:42 pm CLINICAL HISTORY: Abdominal trauma, blunt force trauma COMPARISON: Abdomen Pelvis Wo Contrast dated 05/06/2022 TECHNIQUE: Axial [address] imaging of the abdomen and pelvis was performed without IV contrast. No IV contrast was given because of allergy, abnormal renal function, patient refusal or physician re quest. No oral contrast administered. All CT scans are performed using dose optimization technique as appropriate and may include automated exposure control or mA/KV adjustment according to patient size. FINDINGS: No suspicious findings in the lung bases. The liver, spleen and pancreas show no suspicious findings on non-contrast imaging. Cholecystectomy c lips are present. No biliary tree dilatation. No hydronephrosis or suspicious renal mass. Punctate nonobstructing calyx calculi noted in each kidne y. No significant adrenal finding. Isodense renal masses and pyelonephritis cannot be excluded in the absence of IV contrast. The urinary bladder is without significant finding. Uterus is absent. Ovarie s are absent or atrophic. No dilated bowel loops or bowel wall thickening. No free air, free fluid or inflammatory stranding. No hernia, mass or bulky lymphadenopathy. No suspicious bony findings. IMPRESSION: Non-contrast enhanced CT abdomen and pelvis imaging show no significant or suspicious fi nding. Full assessment is limited is the absence of IV contrast.
--- NOTE | 2022-05-20 21:52 | RAD REPORT ---
EXAM DESCRIPTION: CT - C Spine Wo Con - 05/20/2022 9:43 pm CLINICAL HISTORY: Fall, neck trauma COMPARISON: CT head and cervical March 18 TECHNIQUE: Axial 2 mm thick images of the cervical spine were obtained with sagittal and coronal rec onstruction images generated and reviewed. All CT scans are performed using dose optimization technique as appropriate and may include automated exposure control or mA/KV adjustment according to patient size. FINDINGS: Cervical body height and alignment are normal. No disk space narrowing. No fracture or acu te bony abnormality. No paraspinal mass or hematoma. Central canal detail is inherently limited on CT imaging. IMPRESSION: Negative CT cervical spine examination.
--- NOTE | 2022-05-20 22:33 | RAD REPORT ---
EXAM DESCRIPTION: RAD - Ankle Right 3 View - 05/20/2022 9:53 pm CLINICAL HISTORY: PAIN, trauma COMPARISON: No comparisons FINDINGS: No fracture, dislocation or periosteal reaction. No joint effusion seen. No joint space na rrowing. No soft tissue abnormality. IMPRESSION: Negative right ankle
--- NOTE | 2022-05-20 22:43 | ER ---
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 Right side of pelvis is hurt most intensely. Coronavirus screen: Vaccine status: Patient reports receiving the 2nd dose of the covid vaccine. Ebola Screen: No symptoms or risks identified at this time. Initial Sepsis Screen: Does the patient meet any 2 criteria? No. Patient's initial sepsis screen is negative. Does the patient have a suspected source of infection? No. Patient's initial sepsis screen is negative. Risk Assessment: Do you want to hurt yourself or someone else? Patient reports no desire to harm self or others. Onset of symptoms was May 19, 2022. 20:42 Method Of Arrival: Wheelchair [facility] 20:42 Acuity: LYUBOV 3 eh3 Triage Assessment: 20:45 General: Appears distressed, uncomfortable, Behavior is cooperative, appropriate for 3 age. Pain: Complains of pain in right femoral area, right inguinal area, right iliac crest and right hip Pain does not radiate. Pain currently is 10 out of 10 on a pain scale. Quality of pain is described as aching, sharp, Pain began suddenly, 1 day ago. Is continuous. Neuro: Level of Consciousness is awake, alert, obeys commands, Oriented to person, place, time, situation. Cardiovascular: Capillary refill < 3 seconds Patient's skin is warm and dry. Respiratory: Airway is patent Respiratory effort is even, unlabored. 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 3 Historical: - Allergies: 20:45 Adhesives; eh3 20:45 Aspirin; eh3 20:45 Bactrim; eh3 20:45 Benadryl; 3 20:45 cefixime; 3 20:45 Cipro IV; eh3 20:45 Clindamycin; 3 20:45 coconut oil; eh3 20:45 Detrol; eh3 20:45 Diltiazem; eh3 20:45 Doxycycline; eh3 20:45 FISH PRODUCT DERIVATIVES; eh3 20:45 GABAPENTIN; eh3 20:45 Hydrocodone-Acetaminophen; eh3 20:45 Iodine; eh3 20:45 ivabradine; eh3 20:45 Latex, Natural Rubber; eh3 20:45 Morphine; eh3 20:45 PENICILLINS; eh3 20:45 Seroquel; eh3 20:45 Sulfa (Sulfonamide Antibiotics); eh3 20:45 tramadol; eh3 - Home Meds: 20:45 albuterol sulfate 2.5 mg /3 mL (0.083 %) Inhl nebu 3 mL 3 times per day [Active]; eh3 apixaban 5 mg Oral tab 1 tab 2 times per day [Active]; BuSpar Oral [Active]; carvedilol 25 mg Oral tab 1 tab 2 times per day [Active]; Crestor 5 mg Oral tab 1 tab once daily [Active]; digoxin 125 mcg (0.125 mg) Oral tab 1 tab once daily [Active]; Breo Ellipta inhalation [Active]; Keppra 750 mg Oral tab 1 tab [Active]; Lasix 20 mg Oral tab 1 tab [Active]; Spiriva with HandiHaler inhalation [Active]; Xanax 0.25 mg Oral tab 1 tab [Active]; Vraylar 4.5 mg Oral cap once daily [Active]; duloxetine 30 mg oral CDRS 1 cap once daily [Active]; Restasis 0.05 % ophthalmic (eye) dpet 1 drop every 12 hours [Active]; pantoprazole 20 mg oral TbEC 1 tab once daily [Active]; - Immunization history:: Adult Immunizations up to date. - Social history:: Smoking status: Patient denies any tobacco usage or history of. Patient/guardian denies using alcohol. Screenin:00 Abuse screen: Denies threats or abuse. Nutritional screening: No deficits noted. fu Tuberculosis screening: No symptoms or risk factors identified. Fall Risk None identified. Assessment: 21:40 General: Appears uncomfortable. Pain: Complains of pain in right shoulder, right hip, fu pelvis, right leg Pain currently is 10 out of 10 on a pain scale. Neuro: Level of Consciousness is awake, alert, obeys commands, Oriented to person, place, time, situation, Moves all extremities. Gait is unsteady. Respiratory: Respiratory effort is even, unlabored, Respiratory pattern is regular. Derm: Skin is intact. 23:00 Reassessment: Patient is alert, oriented x 3, equal unlabored respirations, skin fu warm/dry/pink. Vital Signs: 20:42 BP 106 / 94; Pulse 109; Resp 20; Temp 97.8; Pulse Ox 97% on R/A; Weight 57.61 kg; eh3 Height 4 ft. 11 in. (149.86 cm); Pain 10/10; 22:00 BP 114 / 86; Pulse 86; Resp 16; Pulse Ox 99% on R/A; Pain 10/10; fu 23:00 BP 114 / 77; Pulse 82; Resp 16; Pulse Ox 97% ; fu 20:42 Body Mass Index 25.65 (57.61 kg, 149.86 cm) 3 ED Course: 20:37 Patient arrived in ED. jj6 20:43 Philip Romeo DO is Attending Physician. ms3 20:45 Triage completed. eh3 20:45 Arm band placed on right wrist. eh3 21:29 Dileep Nuñez, RN is Primary Nurse. fu 21:44 CT Abd/Pelvis - Without Contrast In Process Unspecified. EDMS 21:44 CT C Spine In Process Unspecified. EDMS 21:55 Ankle Right 3 View XRAY In Process Unspecified. EDMS 22:00 Placed in gown. Bed in low position. Side rails up X 1. Side rails up X2. Cardiac fu monitor on. Pulse ox on. NIBP on. Warm blanket given. 22:41 Sawyer Dukes DO is Referral Physician. ms3 22:45 Inserted saline lock: 24 gauge in left hand, using aseptic technique. fu 23:00 No provider procedures requiring assistance completed. IV discontinued, bleeding fu controlled, Pressure dressing applied. 23:24 Referral Physician role handed off by Sawyer Dukes DO ms3 23:25 Diya Mora MD is Referral Physician. ms3 Administered Medications: 23:02 Drug: Ketorolac 15 mg Route: IVP; Site: left hand; fu 05/21 01:42 Follow up: Response: Medication administered at discharge. fu Medication: 01:42 VIS not applicable for this client. fu Outcome: 05/20 22:42 Discharge ordered by . ms3 23:30 Discharged to home ambulatory, with family. fu 23:30 Condition: stable 23:30 Discharge instructions given to patient, Instructed on discharge instructions, follow up and referral plans. Demonstrated understanding of instructions, Prescriptions given X 0 23:44 Patient left the ED. ld1 Signatures: Dispatcher [employer] EDMS Dileep Nuñez RN RN fu Sims, Marcus, DO DO ms3 Kati Hardwick RN RN ld1 Leny Dongj6 Rossi Perry RN RN eh3 Corrections: (The following items were deleted from the chart) 20:49 20:45 PMHx: Atrial fibrillation; eh3 eh3 20:49 20:45 PMHx: Hypertensive disorder; eh3 eh3 20:49 20:45 PMHx: Asthma; eh3 eh3 20:49 20:45 PMHx: Seizure; eh3 eh3 20:49 20:45 PMHx: Migraine; eh3 eh3 20:49 20:45 PMHx: Depression; eh3 eh3 20:49 20:45 PMHx: CVA; eh3 eh3 20:49 20:45 PMHx: DVT; eh3 eh3 20:49 20:45 PMHx: TIA; eh3 eh3 20:49 20:45 PSHx: Ligation of fallopian tube; eh3 eh3 20:49 20:45 PSHx: pace maker placement; eh3 eh3 20:49 20:45 PSHx: Cholecystectomy; eh3 eh3 20:49 20:45 PSHx: right hand cyst removal; eh3 eh3 20:49 20:45 PSHx: left shoulder; eh3 eh3 20:49 20:45 PSHx: hysterectomy; eh3 eh3
--- NOTE | 2022-05-20 22:43 | EDPHYS ---
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 Right side injury/pain. 22:42 Trauma demographics: County: The injury occurred in [place] Location of Injury: The ms3 injury occurred at home, Date: May 19, 2022. Mechanism of injury: Crush injury: from Rn Advice, not require extrication, and the patient was not trapped for any length of time. Associated injuries: The patient sustained ecchymosis, painful injury, swelling, Pelvis/ Right hip. Onset: The symptoms/episode began/occurred yesterday. The patient has not experienced similar symptoms in the past. 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 eh3 Historical: - Allergies: 20:45 Adhesives; eh3 20:45 Aspirin; eh3 20:45 Bactrim; eh3 20:45 Benadryl; eh3 20:45 cefixime; eh3 20:45 Cipro IV; eh3 20:45 Clindamycin; eh3 20:45 coconut oil; eh3 20:45 Detrol; eh3 20:45 Diltiazem; eh3 20:45 Doxycycline; eh3 20:45 FISH PRODUCT DERIVATIVES; eh3 20:45 GABAPENTIN; eh3 20:45 Hydrocodone-Acetaminophen; eh3 20:45 Iodine; eh3 20:45 ivabradine; eh3 20:45 Latex, Natural Rubber; eh3 20:45 Morphine; eh3 20:45 PENICILLINS; eh3 20:45 Seroquel; eh3 20:45 Sulfa (Sulfonamide Antibiotics); eh3 20:45 tramadol; eh3 - Home Meds: 20:45 albuterol sulfate 2.5 mg /3 mL (0.083 %) Inhl nebu 3 mL 3 times per day [Active]; eh3 apixaban 5 mg Oral tab 1 tab 2 times per day [Active]; BuSpar Oral [Active]; carvedilol 25 mg Oral tab 1 tab 2 times per day [Active]; Crestor 5 mg Oral tab 1 tab once daily [Active]; digoxin 125 mcg (0.125 mg) Oral tab 1 tab once daily [Active]; Breo Ellipta inhalation [Active]; Keppra 750 mg Oral tab 1 tab [Active]; Lasix 20 mg Oral tab 1 tab [Active]; Spiriva with HandiHaler inhalation [Active]; Xanax 0.25 mg Oral tab 1 tab [Active]; Vraylar 4.5 mg Oral cap once daily [Active]; duloxetine 30 mg oral CDRS 1 cap once daily [Active]; Restasis 0.05 % ophthalmic (eye) dpet 1 drop every 12 hours [Active]; pantoprazole 20 mg oral TbEC 1 tab once daily [Active]; - Immunization history:: Adult Immunizations up to date. - Social history:: Smoking status: Patient denies any tobacco usage or history of. Patient/guardian denies using alcohol. ROS: 22:42 Constitutional: Negative for fever, and chills. Neck: Negative for injury, pain, and ms3 swelling, Cardiovascular: Negative for chest pain, and palpitations. Respiratory: Negative for shortness of breath, cough, wheezing, and pleuritic chest pain, Abdomen/GI: Negative for abdominal pain, nausea, vomiting, diarrhea, and constipation, Skin: Negative for injury, rash, and discoloration, Psych: Negative for depression, anxiety, suicide ideation, homicidal ideation, and hallucinations, Allergy/Immunology: Negative for hives, rash, and allergies. 22:42 MS/extremity: Positive for pain, of the pelvis and right hip. 22:42 All other systems are negative. Exam: 22:42 Constitutional: This is a well developed, well nourished patient who is awake, alert, ms3 and in no acute distress. Head/Face: Normocephalic, atraumatic. Neck: Trachea midline, no cervical lymphadenopathy. Supple, full range of motion without nuchal rigidity, or vertebral point tenderness. No Meningismus. Chest/axilla: Normal chest wall appearance and motion. Nontender with no deformity. Cardiovascular: Regular rate and rhythm with a normal S1 and S2. No gallops, murmurs, or rubs. Normal PMI, no JVD. No pulse deficits. Respiratory: Lungs have equal breath sounds bilaterally, clear to auscultation and percussion. No rales, rhonchi or wheezes noted. No increased work of breathing, no retractions or nasal flaring. Abdomen/GI: Soft, non-tender, with normal bowel sounds. No distension or tympany. No guarding or rebound. No evidence of tenderness throughout. Skin: Warm, dry with normal turgor. Normal color with no rashes, no lesions, and no evidence of cellulitis. 22:42 Psych: Awake, alert, with orientation to person, place and time. Behavior, mood, and affect are within normal limits. 22:42 Musculoskeletal/extremity: Extremities: noted in the right hip and right iliac crest and right inguinal area and right femoral area and pelvis: pain, tenderness, ROM: no acute changes, Circulation is intact in all extremities. Compartment Syndrome exam of affected extremity: is normal. Vital Signs: 20:42 BP 106 / 94; Pulse 109; Resp 20; Temp 97.8; Pulse Ox 97% on R/A; Weight 57.61 kg; eh3 Height 4 ft. 11 in. (149.86 cm); Pain 10/10; 22:00 BP 114 / 86; Pulse 86; Resp 16; Pulse Ox 99% on R/A; Pain 10/10; fu 23:00 BP 114 / 77; Pulse 82; Resp 16; Pulse Ox 97% ; fu 20:42 Body Mass Index 25.65 (57.61 kg, 149.86 cm) 3 MDM: 20:57 Patient medically screened. ms3 22:42 Differential diagnosis: intra-abdominal injury, extremity fracture, contusion. Data ms3 reviewed: vital signs, nurses notes, radiologic studies, and as a result, I will discharge patient. Counseling: I had a detailed discussion with the patient and/or guardian regarding: the historical points, exam findings, and any diagnostic results supporting the discharge/admit diagnosis, radiology results, the need for outpatient follow up, to return to the emergency department if symptoms worsen or persist or if there are any questions or concerns that arise at home. ED course: On reevaluation patient is improved, alert and oriented x4, no apparent distress, nontoxic, ambulatory in emergency department. Patient to follow-up as discussed. All questions were answered. Return precautions discussed include worsening symptoms, or any other concerns.. 05/20 21:03 Order name: CT Abd/Pelvis - Without Contrast; Complete Time: 22:40 ms3 05/20 21:03 Order name: CT C Spine; Complete Time: 22:40 ms3 05/20 21:03 Order name: Ankle Right 3 View XRAY; Complete Time: 22:40 ms3 Administered Medications: 23:02 Drug: Ketorolac 15 mg Route: IVP; Site: left hand; fu 05/21 01:42 Follow up: Response: Medication administered at discharge. fu Disposition Summary: 05/20/22 22:42 Discharge Ordered Location: Home ms3 Condition: Stable ms3 Diagnosis - Pain in right hip ms3 - Pain in right knee ms3 - Abdominal pain, unspecified ms3 Followup: ms3 - With: Sawyer Dukes DO - When: 2 - 3 days - Reason: Recheck today's complaints Followup: ms3 - With: Diya Mora MD - When: 2 - 3 days - Reason: Re-evaluation by your physician Discharge Instructions: - Discharge Summary Sheet ms3 - Abdominal Pain, Adult ms3 - Musculoskeletal Pain ms3 Forms: - Medication Reconciliation Form ms3 - Thank You Letter ms3 - Antibiotic Education ms3 - Prescription Opioid Use ms3 Signatures: Dispatcher [employer] EDOK Dileep Nuñez RN RN Philip Calderón DO DO ms3 Rossi Perry RN RN 3 Corrections: (The following items were deleted from the chart) 05/20 20:49 20:45 PMHx: Atrial fibrillation; 3 3 20:49 20:45 PMHx: Hypertensive disorder; 3 3 20:49 20:45 PMHx: Asthma; 3 eh3 20:49 20:45 PMHx: Seizure; 3 eh3 20:49 20:45 PMHx: Migraine; 3 eh3 20:49 20:45 PMHx: Depression; 3 eh3 20:49 20:45 PMHx: CVA; 3 eh3 20:49 20:45 PMHx: DVT; 3 3 20:49 20:45 PMHx: TIA; 3 3 20:49 20:45 PSHx: Ligation of fallopian tube; 3 eh3 20:49 20:45 PSHx: pace maker placement; 3 eh3 20:49 20:45 PSHx: Cholecystectomy; 3 3 20:49 20:45 PSHx: right hand cyst removal; 3 3 20:49 20:45 PSHx: left shoulder; 3 3 20:49 20:45 PSHx: hysterectomy; 3 eh3
[2022-05-20] MEDS ORDERED: KETOROLAC 30 MG/ML INJ ONE (22:44)
[2022-05-21 02:51] VITALS: BP 106/94; TEMP 97.8; O2SAT 97
== END 2022-05-20 23:44 | disposition home or self-care (01) ==
LOC: ER 20:34
DX: M25.551 Pain in right hip (principal); M25.561 Pain in right knee; R10.9 Unspecified abdominal pain; Z88.0 Allergy status to penicillin; Z88.1 Allergy status to other antibiotic agents; Z88.2 Allergy status to sulfonamides; Z88.3 Allergy status to other anti-infective agents; Z88.5 Allergy status to narcotic agent; Z88.6 Allergy status to analgesic agent; Z88.8 Allergy status to other drugs, medicaments and biological substances; Z91.013 Allergy to seafood; Z91.018 Allergy to other foods; Z91.040 Latex allergy status; Z91.048 Other nonmedicinal substance allergy status
CPT/HCPCS: 72125; 74176; 96374; 99284

== ENCOUNTER 2022-05-28 18:32 | Emergency (ER) | payer OTHER ==
--- OUTSIDE RECORDS SUMMARY | 2022-05-28 18:42 | XMS REPORT | Continuity of Care Document ---
:1980 Author Organization [facility] t Address [address] [place] [address] Support Name Relationship Address Phone LINUS RIVERA [address] [phone] [place] [address] JET MARTY [address] [facility] 3 [phone] [place] [address] LINUS RIVERA Unavailable [phone] Isatu Rivera Mother [address] [place] [address] JetAngeln Child Unavailable Marty Bob Significant Other [address] [place] [address] Marty Bob Significant Other [address] [place] [address] KIMBERLEE LARSEN, AUREA Waters Emergency Provider [address] [facility] [address] [place] [address] CAROLINE LARSEN, SILVERIO Primary Care Physician [address] [place] [address] BRENDAN LINDQUIST MD Emergency Provider [address] [facility] [phone] [place] [address] MD SILVERIO VELAZQUEZ Primary Care Physician [address] [place] [address] MD DARCIE KUMARI Admitting Provider [address] [place] [address] MD BAILEY HART Emergency Provider [address] [phone] [place] [address] Korin Chaudhary Spouse Unavailable Elie Bauer Unavailable / [phone] MARTY CHAUDHARY Unavailable [address] [place] [address] [place] [address] MARTY CHAUDHARY SRI Significant [address] Unavailable [place] [id number] Care Team Providers Name Role Phone SILVERIO VELAZQUEZ MIMA Primary Care Physician Unavailable WILMER VERA Attending Clinician Unavailable Linus Boone Attending Clinician Unavailable ANDREY TELLES Attending Clinician Unavailable ANDREY TELLES Attending Clinician Unavailable Ernst Hollins MD, Nurys Attending Clinician Tucker Guy DO Attending Clinician FLOR Attending Clinician Unavailable Doctor Unassigned, Disputanta Attending Clinician Unavailable Ann Salcido MA Attending Clinician Unavailable Antonio LARSEN, Hector Ochoa Attending Clinician Cici LARSEN, Veda Mendez Attending Clinician Matt Berkowitz MD Attending Clinician Wilmer Vera MD Attending Clinician Unavailable JOSE GALVEZ Attending Clinician Unavailable LYLY SUE Attending Clinician Unavailable WILMER VERA Admitting Clinician Unavailable FLOR Admitting Clinician Unavailable MATT BERKOWITZ Admitting Clinician Unavailable JOSE GALVEZ Admitting Clinician Unavailable LYLY SUE Admitting Clinician Unavailable Payers Payer Name Policy Type Policy Number Effective Expiration Source Date Date GENERIC MEDICAID HMO [id number] 2011 00:00:00 [employer] [facility] [id number] 2011 Met panda STAR+PLUS 00:00:00 Hospital [id number] 2010- PresentO SOLORIO [id number] [address] [facility] MEDICAIDMEDICAID 00:00:00 Medical [id number] 018-Present Problems Condition Condition Condition Status Onset Resolution Last Treating Co mments Source Name Details Category Date Date Treatment Clinician Date Left-sided Left-sided Disease Active U nivers weakness weakness 7-23 ity of 00:00: [place] 00 Medical Branch History of History of Disease Active U nivers DVT (deep DVT (deep 4-11 ity of vein vein 00:00: [place] thrombosis thrombosis 00 Me dical ) ) Branch Palpitatio Palpitatio Disease Active U nivers ns ns 4-11 ity of 00:00: [place] 00 Medical Branch Elevated Elevated Disease Active Unive rs d-dimer d-dimer 7- ity of 00:00: [place] 00 Medical Branch Left-sided Left-sided Disease Active [facility] weakness weakness 5[facility]21 [facility] Received Received Disease [facility] tissue tissue [facility]21 [facility] plasminoge plasminoge 00:00: Sc dical n n 00 Center activator activator (t-PA) (t-PA) less than less than 24 hours 24 hours prior to prior to arrival arrival Acute Acute Disease Active [facility] ischemic ischemic 5[facility]20 [facility] stroke stroke 00:00: [facility] 00 Center Atypical Atypical Disease Active Unive rs chest pain chest pain 4-20 it y of 00:00: [place] 00 Medical Branch Chest pain Chest pain Disease Active [facility] in adult in adult 4-20 [facility] 00:00: [facility] 00 [place] Inappropri Inappropri Disease Active 2019- U nivers [...] Active 2019- Univers 2-04 ity of 00:00: [place] 00 Medical Branch PVT PVT Disease Active Univers (paroxysma (paroxysma 2-04 it y of l l 00:00: [place] ventricula ventricula 00 Sc dical r r Branch tachycardi tachycardi a) a) Digoxin Digoxin Disease Active Univers toxicity toxicity 2-04 ity of 00:00: [place] 00 Medical Branch AN AN Disease Active 2018-09 Univers (dyspnea (dyspnea 2-01 ity of on on 00:00: [place] exertion) exertion) 00 Medi blane Branch Seizure Seizure Disease Active 2018-[address] disorder disorder 2-01 [facility] 00:[facility] 00 Center Mitral Mitral [...] of lower 00:00: [place] extremity extremity 00 [facility] Anxiety Anxiety Disease Active [facility] disorder disorder 8 [facility] 00[facility] 00 Center Asthma Asthma Disease Active [facility] Center Paresthesi Paresthesi [...] of anemia, anemia, 00:00: g of this [place] unspecifie unspecifie 00 note Me dical d iron d iron might be Branch deficiency deficiency different anemia anemia from the type type original. Added automatic ally from request for surgery [id number] Abdominal Abdominal Disease Active 2017-09 Overview: Univers pain, pain, 0-19 Formattin ity of unspecifie unspecifie 00:00: g of this [place] d d 00 note Medical abdominal abdominal might be Br anch location location different from the original. Added automatic ally from request for surgery [id number] Nausea and Nausea and Disease Active 2017-09 Overview : Univers vomiting, vomiting, 0-19 Formattin i ty of intractabi intractabi 00:00: g of this [place] lity of lity of 00 note Medical vomiting vomiting might be Bran ch not not different specified, specified, from the unspecifie unspecifie original. d vomiting d vomiting Added type type automatic ally from request for surgery [id number] Non-cardia Non-cardia Disease Active U nivers c chest c chest 8 ity of pain pain 00:00: [place] 00 Medical Branch Essential Essential Disease Active Uni vers hypertensi hypertensi 04-27 it y of on on 00:00: [place] 00 Medical Branch Pacemaker Pacemaker Disease Active Uni vers 8 ity of 00:00: [place] [facility] PAF PAF Disease Active [facility] (paroxysma (paroxysma 04-27 Elfe[place] kes l atrial l atrial 00:00: Medica [...] Active 2012-09 Overview : Univers dism dism 2- Formattin ity of 00:00: g of this [place] note Medical might be Branch different from the original. 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 doxycycl DA Active SV 2020-0 [facility] ine 1-04 [place] 00:00: d 00 [facility] clindamy DA Active MO 2020-0 [facility] stephan 1-04 [place] 00:00: d [address] [facility] sulfamet DA Active MO 2020-0 [facility] hoxazole 1-04 [place] 00:00: d 00 [facility] trimetho DA Active MO 2020-0 [facility] prim 1-04 [place] 00:00: d 00 [facility] Center ciproflo DA Active SV 2020-0 [facility] xacin 1-04 [place] 00:00: d 00 [facility] adhesive DA Active SV 2020-0 [facility] tape 1-04 [place] 00:00: d 00 [facility] Center tramadol DA Active SV 2020-0 [facility] 1-04 [place] 00:00: d 00 [facility] gabapent DA Active SV 202-0 [facility] [...] [place] mide 00:00: d Antibiot 00 Medical [facility]) Center Fish FA Active SV ANAPHYLAXIS 2020-0 [...] DA Active MO RASH 2020-0 [facility] stephan - [place] 00:00: d 00 Medical Center sulfamet DA Active MO RASH 2020-0 [facility] hoxazole -04 [place] 00:00: d 00 Medical Center trimetho DA Active MO RASH 2020-0 [facility] prim -04 [place] 00:00: d 00 Medical Center ciproflo DA Active SV HIVES [facility] xacin 1-04 [place] 00:00: d 00 Medical Center adhesive DA Active SV BLISTERS [facility] tape 1-04 [place] 00:00: d 00 Medical Center tramadol DA Active SV HIVES 2020-0 [facility] 1-04 [place] 00:00: d 00 Medical [place] gabapent DA Active SV RASH [facility] in 1-04 [place] 00:00: d 00 Medical Center diltiaze DA Active SV SHORTNESS OF HC A m BREATH 1-04 [place] 00:00: d [address] [facility] diphenhy DA Active SV RASH [facility] dramine 1-04 [place] 00:00: d 00 [facility] topirama DA Active SV HIVES/MEMORY HC A te LOSS -04 [place] 00:00: d [address] [facility] levoflox DA Active SV HIVES [facility] acin 1-04 [place] 00:00: d [address] [facility] quetiapi DA Active MO RASH [facility] ne 1-04 [place] 00:00: d [address] [facility] tolterod DA Active MO RASH [facility] ine 1-04 [place] 00:00: d [address] [facility] latex DA Active SV BLISTERS 2020- [facility] 1-04 [place] 00:00: d [address] [facility] ivabradi DA Active MO RASH 2020-0 [facility] ne 1-04 [place] 00:00: d [address] [facility] coconut FA Active MO RASH 2020- [...] of that medicine Ivabradi Propensi Active Rash 2018-03/2020: Meth jamie ne ty to 0-[address] adverse 00:00: passing Hospita reaction 00 out after l s to taking drug one dose of that medicine Diltiaze Propensi Active Shortness Of 2019-0 Methodi m ty to Breath 905 st adverse 00:00: Hospita reaction 00 l s to drug Cephalex Drug Active Anaphylaxis 2019-0 Uni vers in Allergy 8-05 ity of 00:00: [place] 00 Medical Branch Levoflox Drug Active Anaphylaxis 2019-0 Uni vers acin Allergy 805 ity of 00:00: [place] 00 Medical Branch CEPHALEX DRUG Active High Anaphylaxis 2019-0 Uni vers IN INGREDI 805 ity of 00:00: [place] 00 Medical Branch FISH Drug Active High Anaphylaxis 2019-0 Unive rs CONTAINI Class 805 ity of NG 00:00: [place] PRODUCTS 00 Medical Branch LEVOFLOX DRUG Active High Anaphylaxis 2019-0 Uni vers ACIN INGREDI 805 ity of 00:00: [place] 00 [...] s reaction. Branch Doxycycl Propensi Active Rash 2019-0 Method i ine ty to 805 st [...] 00 SULFAMET Allergy Active High Anaphylaxis 2017-09 [facility] HOXAZOLE 10-17 -TRIMETH 00:00: OPRIM [...] Containi reaction 00 Center ng s Products CLINDAMY Allergy Active Low [...] Propensi Active Rash 2017-09 Univers ty to -10 ity of adverse 00:00: [place] reaction 00 Medical s Branch Other Propensi Active Swelling 2017-09 Family Method i ty to 10-[address] adverse 00:00: of Hospita reaction 00 allergic l s reaction. Coconut Propensi Active Rash 2017- Methodi ty to 1-10 st adverse 00:00: Hospita reaction 00 l s to drug Coconut Propensi Active Rash 2017- Methodi Oil ty to 1-10 st adverse 00:00: Hospita reaction 00 l s to drug DIPHENHY DRUG Active Hives 2018-0 Univers [...] s Branch Iodine Propensi Active Rash 2018-0 Methodi And ty to 4-12 st Iodide adverse 00:00: Hospita Containi reaction 00 l ng s to Products drug Diphenhy Propensi Active Other (See 20180 Me thodi dramine ty to Comments) 4-12 st adverse 00:00: Hospita reaction 00 l s to drug Gabapent Propensi Active Shortness Of 2018-0 Methodi in ty to Breath 4-12 st adverse 00:00: Hospita reaction 00 l s to drug Iodine Propensi Active Rash 2018-0 Methodi And ty to 4-12 st Iodide adverse 00:00: Hospita Containi reaction 00 l ng s to Products drug Clindamy Propensi Active Rash 2018-0 Method i stephan ty to 4-12 st adverse 00:00: Hospita reaction 00 l s to drug MORPHINE DRUG Active High Anaphylaxis 2016- Uni vers INGREDI 0-05 ity of 00:00: [place] 00 Medical Branch Morphine Propensi Active Anaphylaxis 2017- U nivers ty to 0-05 ity of adverse 00:00: [place] reaction 00 Medical s Branch Morphine Propensi Active Anaphylaxis 2017- M ethodi ty to 0-05 st adverse 00:00: Hospita reaction 00 l s to drug TRAMADOL DRUG Active Unknown-Cmnt 2017-0 Un austyn [...] to drug Ciproflo Propensi Active Shortness of 0 Muscle Univers xacin ty to Breath 04-20 aches ity of adverse 00:00: [place] reaction 00 Medical s Branch CIPROFLO DRUG Active SOB 2015- Univers XACIN INGREDI 04-20 ity of 00:00: [...] 00 Medical Branch Aspirin Propensi Active Anaphylaxis 2013- Me thodi ty to 12-31 st adverse [...] Date Stop Date Quantity Comments Source History [facility] Baptism Alcohol Std Drinks Hospit al History [facility] Alcohol Binge [facility] Exposure to 2022-05-14 2022-05-24 Not sure [facility] SARS-CoV-2 (event) 00:00:00 00:34:00 [facility] Cigarettes smoked 2022-04-05 2022-04-05 Univers ity of current (pack per 00:00:00 00:00:00 [facility]) - Reported Branch Cigarette 2022-04-05 2022-04-05 University of pack-years 00:00:00 00:00:00 [facility] Tobacco use and 2022-04-05 2022-04-05 Smokeless Universit y of exposure 00:00:00 00:00:00 tobacco non-user [facility] dical Branch Education 2021-03-25 2021-03-25 12 University of 00:00:00 00:00:00 [facility] Alcohol intake 2021-03-17 2021-03-17 Current Baptism 00:00:00 00:00:00 non-drinker of Hospital alcohol (finding) History [facility] 2019-10-29 2019-10-29 5 University o f Financial 00:00:00 00:00:00 [facility] Branch History [facility] Food 2019-10-29 2019-10-29 1 Univers ity of Worry 00:00:00 00:00:00 [facility] Branch History [facility] Food 2019-10-29 2019-10-29 1 Univers ity of Scarcity 00:00:00 00:00:00 [place] [facility] History [facility] 2019-10-29 2019-10-29 2 University o f Transport Med 00:00:00 00:00:00 [place] Medic al Branch History [facility] 2019-10-29 2019-10-29 2 University o f Transport Non-Med 00:00:00 00:00:00 [facility] edical Branch History [facility] 2018-09-05 2018-09-05 1 Baptism Alcohol Frequency 00:00:00 00:00:00 Hospita l History of tobacco 2001-05-09 Passive smoker Un iversity of use 00:00:00 [facility] Sex Ass[birth year] At [birth year] Baptism 00:00:00 00:00:00 Hospital Smoking Status Start Date Stop Date Source Ex-smoker 2022-04-05 00:00:00 2022-04-05 00:00:00 [facility] Medications Ordered Filled Start Stop Current Ordering Indication Dosage Frequency Signature Comments Components Source Medication Medication Date Date Medication? Clinician (SIG) Name Name rosuvastati Yes 10mg Take 10 mg Univers n (CRESTOR) 8-30 by mouth ity of 10 mg 09:52: at [place] tablet 35 bedtime. Medical Branch rosuvastati Yes 10mg Take 10 mg Univers n (CRESTOR) 8-30 by mouth ity of 10 mg 09:52: at [place] tablet 35 bedtime. Medical Branch levETIRAcet Yes 750mg Take 1 Uni vers am 750 mg 8-30 tablet by ity o f tablet 00:00: mouth in [place] 00 the Medical morning. Branch levETIRAcet Yes 1000mg Take 1 Un austyn am 1,000 mg 8-30 tablet by ity of tablet 00:00: mouth in [place] the Medical morning. Branch levETIRAcet Yes 750mg Take 1 Uni vers am 750 mg 8-30 tablet by ity o f tablet 00:00: mouth in [place] the Medical morning. Branch levETIRAcet Yes 1000mg Take 1 Un austyn am 1,000 mg 8-30 tablet by ity of tablet 00:00: mouth in [place] the Medical morning. Branch ALPRAZolam Yes [id number] .25mg Take 0.25 Univers 0.25 mg 8-12 mg by ity of tablet 13:33: mouth at [place] [address] bedtime as Medical needed. Branch pregabalin 0 Yes 50mg Take 50 mg U nivers 50 mg 8-12 by mouth ity of capsule 13:33: at [place] [address] bedtime. Medical Branch ALPRAZolam 0 Yes [id number] .25mg Take 0.25 Univers 0.25 mg 8-12 mg by ity of tablet 13:33: mouth at [place] [address] bedtime as Medical needed. Branch pregabalin Yes 50mg Take 50 mg U nivers 50 mg 8-12 by mouth ity of capsule 13:33: at [place] [address] bedtime. Medical Branch ALPRAZolam Yes [id number] .25mg Take 0.25 Univers 0.25 mg 8-12 mg by ity of tablet 13:33: mouth at [place] 09 bedtime as Medical needed. Branch pregabalin Yes 50mg Take 50 mg U nivers 50 mg 8-12 by mouth ity of capsule 13:33: at [place] [address] bedtime. Medical Branch tiotropium Yes 1{puff} Inhale 1 Univers bromide 8-12 Puff ity of (SPIRIVA 00:00: daily. [place] RESPIMA) Medical 2.5 Branch mcg/actuati on Mist tiotropium Yes 1{puff} Inhale 1 Univers bromide 8-12 Puff ity of (SPIRIVA 00:00: daily. [place] RESPIMAT) 00 Medical 2.5 Branch mcg/actuati on Mist tiotropium 0 Yes 1{puff} Inhale 1 Univers bromide 8-12 Puff ity of (SPIRIVA 00:00: daily. [place] RESPIMAT) 00 Medical 2.5 Branch mcg/actuati on Mist esomeprazol Yes 20mg Take 20 mg Univers e 20 mg 7-25 by mouth 2 ity of capsule 18:00: (two) [place] 13 times Medical daily Branch before breakfast and dinner. esomeprazol 0 Yes 20mg Take 20 mg Univers e 20 mg 7-25 by mouth 2 ity of capsule 18:00: (two) [place] 13 times Medical daily Branch before breakfast and dinner. esomeprazol 0 Yes 20mg Take 20 mg Univers e 20 mg 7-25 by mouth 2 ity of capsule 18:00: (two) [place] 13 times Medical daily Branch before breakfast and dinner. roflumilast 0 Yes [id number] 250ug Take 250 Univers (DALIRESP) 7-25 mcg by ity of 250 mcg Tab 00:00: mouth [place] 00 daily. Medical Branch carvediloL 2022-0 Yes [id number] 12.5mg Take 1 Univers 12.5 mg 7-25 tablet by ity of tablet 00:00: mouth in [place] 00 the Medical morning Branch and 1 tablet in the evening. Take with meals. levETIRAcet 2021-0 Yes [id number] 1250mg Take 5 Univers am 250 mg 7-25 tablets by ity of tablet 00:00: mouth in [place] 00 the Medical morning Branch and 5 tablets in the evening. roflumilast 2021-0 Yes [id number] 250ug Take 250 Univers (DALIRESP) 7-25 mcg by ity of 250 mcg Tab 00:00: mouth [place] 00 daily. Medical Branch carvediloL 0 Yes [id number] 12.5mg Take 1 Univers 12.5 mg 7-25 tablet by ity of tablet 00:00: mouth in [place] 00 the Medical morning Branch and 1 tablet in the evening. Take with meals. levETIRAcet 2021-0 Yes [id number] 1250mg Take 5 Univers am 250 mg 7-25 tablets by ity of tablet 00:00: mouth in [place] 00 the Medical morning Branch and 5 tablets in the evening. roflumilast 0 Yes [id number] 250ug Take 250 Univers (DALIRESP) 7-25 mcg by ity of 250 mcg Tab 00:00: mouth [place] 00 daily. Medical Branch carvediloL 2021-0 Yes [id number] 12.5mg Take 1 Univers 12.5 mg 7-25 tablet by ity of tablet 00:00: mouth in [place] 00 the Medical morning Branch and 1 tablet in the evening. Take with meals. levETIRAcet 2021-0 Yes [id number] 1250mg Take 5 Univers am 250 mg 7-25 tablets by ity of tablet 00:00: mouth in [place] 00 the Medical morning Branch and 5 tablets in the evening. atorvastati 2021-0 2021- No [id number] 40mg Take 1 Univers n 40 mg 7-25 08-30 tablet by ity of tablet 00:00: 00:00 mouth at [place] 00 :00 bedtime. Medical Branch ubrogepant 2021-0 Yes [id number] 100mg Take 100 Univers (UBRELVY) 6-21 mg by ity of 100 mg Tab 00:00: mouth as [place] as 00 needed Medical (migraine) Branch . Take at onset of migraine, repeat x1 in 2h if headache remains ubrogepant 2021-0 Yes [id number] 100mg Take 100 Univers (UBRELVY) 6-21 mg by ity of 100 mg Tab 00:00: mouth as [place] 00 needed Medical (migraine) Branch . Take at onset of migraine, repeat x1 in 2h if headache remains ubrogepant 2021-0 Yes [id number] 100mg Take 100 Univers (UBRELVY) 6-21 mg by ity of 100 mg Tab 00:00: mouth as [place] as 00 needed Medical (migraine) Branch . Take at onset of migraine, repeat x1 in 2h if headache remains fluticasone 2021-0 Yes [id number] 1{puff} Inhale 1 Univers furoate-natan 6-03 Puff ity of anteroL 00:00: daily. [place] ([facility] Medical [facility]) Branch 200-25 mcg/dose DsDv DULoxetine 2021-0 Yes 30mg Take 1 Unive rs 30 mg 6-03 capsule by ity of capsule 00:00: mouth daily. Medical Branch traZODone 2021-0 Yes 50mg Take 1-2 Univ ers 50 mg 6-03 tablets by ity of tablet 00:00: mouth at [place] bedtime as Medical needed for Branch Insomnia. fluticasone 2021-0 Yes [id number] 1{puff} Inhale 1 Univers furoate-natan 6-03 Puff ity of anteroL 00:00: daily. [place] ([facility]) Branch 200-25 mcg/dose DsDv DULoxetine 2021-0 Yes 30mg Take 1 Unive rs 30 mg 6-03 capsule by ity of capsule 00:00: mouth daily. Medical Branch traZODone 2021-0 Yes 50mg Take 1-2 Univ ers 50 mg 6-03 tablets by ity of tablet 00:00: mouth at [place] 00 bedtime as Medical needed for Branch Insomnia. fluticasone 2021-0 Yes [id number] 1{puff} Inhale 1 Univers furoate-natan 6-03 Puff ity of anteroL 00:00: daily. [place] ([facility] Medical [facility]) Branch 200-25 mcg/dose DsDv DULoxetine 2021-0 Yes 30mg Take 1 Unive rs 30 mg 6-03 capsule by ity of capsule 00:00: mouth [place] 00 daily. Medical Branch traZODone Yes 50mg Take 1-2 Univ ers 50 mg 6-03 tablets by ity of tablet 00:00: mouth at [place] 00 bedtime as Medical needed for Branch Insomnia. BENZONATATE Yes [id number] TAKE 1 Univers 100 mg 3-04 CAPSULE BY ity of capsule 00:00: MOUTH [place] 00 THREE Medical TIMES Branch DAILY NEEDED FOR COUGH BENZONATATE Yes [id number] TAKE 1 Univers 100 mg 3-04 CAPSULE BY ity of capsule 00:00: MOUTH [place] 00 THREE Medical TIMES Branch DAILY NEEDED FOR COUGH BENZONATATE Yes [id number] TAKE 1 Univers 100 mg 3-04 CAPSULE [...] 00 needed. Medical Branch albuterol 2020-09 Yes [id number] 2{puff} Inhale 2 Univers 90 1-05 Puffs ity of mcg/actuati 00:00: every 6 [place] as on inhaler 00 (six) Medical hours as Branch needed for Wheezing or Shortness of Breath. albuterol 2020-09 Yes [id number] 2{puff} Inhale 2 Univers 90 1-05 Puffs ity of mcg/actuati 00:00: every 6 [place] as on inhaler 00 (six) Medical hours as Branch needed for Wheezing or Shortness of Breath. albuterol 2020-09 Yes [id number] 2{puff} Inhale 2 Univers 90 1-05 Puffs ity of mcg/actuati 00:00: every 6 [place] as on inhaler 00 (six) Medical hours as Branch needed for Wheezing or Shortness of Breath. apixaban 0 Yes 5mg Take 1 Univers (ELIQUIS) 5 7-14 tablet by ity of mg tablet 00:00: mouth 2 [place] (two) Medical times Branch daily. Indication s: Recurrent DVT apixaban 0 Yes 5mg Take 1 Univers (ELIQUIS) 5 7-14 tablet by ity of mg tablet 00:00: mouth 2 [place] (two) Medical times Branch daily. Indication s: Recurrent DVT apixaban 0 Yes 5mg Take 1 Univers (ELIQUIS) 5 7-14 tablet by ity of mg tablet 00:00: mouth 2 [place] (two) Medical times Branch daily. Indication s: Recurrent DVT fluticasone 0 Yes 100ug QD 2 sprays M ethodi propionate 6-25 ([address] (FLONASE) 00:00: total) by Hos [facility] 50 00 Each Nare l mcg/actuati route on nasal daily. spray fluticasone 0 Yes 100ug QD 2 sprays [...] day. l ophthalmic emulsion albuterol Yes 1{ampul Q.[id number] Take 1 Methodi (ACCUNEB) 6-24 e} [id number] ampule by st 1.25 mg/3 22:52: 3D nebulizati Ho spita mL 44 on 3 l nebulizer (three) solution times a day. esomeprazol No 20mg QD Take 20 mg Methodi e (NexIUM) 6-24 06-[address] 20 MG 20:19: 00:00 daily Hospita capsule 48 :00 before l breakfast. benztropine Yes 1mg Q.5D Take 1 mg [...] 17:52: nightly. [facility] 44 l levETIRAcet 0 [...] capsule 44 nightly. 2 l capsules cholecalcif 2021-0 Yes 2000U QD Take 2,000 Methodi florentino, [...] day. l ophthalmic emulsion albuterol Yes 1{ampul Q.[id number] Take 1 Methodi (ACCUNEB) 6-24 e} [id number] ampule by st 1.25 mg/3 17:52: 3D [...] 17:52: nightly. [facility] 44 l levETIRAcet 0 Yes 1000mg Q.5D Take 1,000 Methodi am (KEPPRA) 6-[address] 1000 MG 17:52: mouth 2 Hospita tablet 44 (two) l times a day. pregabalin 0 Yes 50mg QD Take 50 mg M ethodi (LYRICA) 50 6-[address] MG capsule 17:52: nightly. Hos [facility] 44 l cariprazine 0 [...] 17:52: daily. [facility] 44 l cycloSPORIN 0 Yes 1[drp] Q.5D 1 drop 2 Methodi E 6-24 (two) st (RESTASIS) 17:52: times [facility] 0.[facility] % 44 day. l ophthalmic emulsion albuterol 0 Yes 1{ampul Q.[id number] Take 1 Methodi (ACCUNEB) 6-24 e} [id number] ampule by st 1.25 mg/3 17:52: 3D [...] inhaler hours as needed for wheezing. fluticasone 0 Yes QD Inhale 1 Me thodi furoate-natan 6-[address] anteroL 00:00: s daily. Hospit a (Breo 00 l Ellipta) 200-25 mcg/dose blister with device powder for inhalation albuterol Yes 2{puff} Q4H Inhale 2 M ethodi (PROAIR 6-[address] HFA) 90 00:00: every 4 Hospita mcg/actuati 00 (four) l on inhaler hours as needed for wheezing. fluticasone 2020-0 Yes QD Inhale 1 Me thodi furoate-natan [...] st (Medrol, 00:00: 04:59 directions Ho bubba Juliocesar,) 4 mg 00 :00 l tablet [...] St (BUSPAR) 15 5-21 by mouth 2 Elfego kes MG tablet 14:04: (two) Medical 46 [...] Luke s MG capsule 14:04: nightly . Sc dical 46 Center esomeprazol Yes 40mg QD [...] by mouth [facility] MG tablet 14:04: nightly. [facility] blane 46 Center carvediloL Yes 25mg Take [address] (COREG) 25 5-21 by mouth 2 Berta es MG tablet 14:04: (two) Medical 46 times Center daily with breakfast and dinner. cariprazine Yes 1.5mg QD Take 1.[address] (Vraylar) 5-21 mg by [facility] 1.5 mg Cap 14:04: mouth Medica l 46 nightly. [place] ALPRAZolam Yes .25mg Take 0.[address] (XANAX) 5-21 mg by [facility] 0.25 MG 14:04: mouth Medical tablet 46 daily as Center needed for Anxiety. busPIRone Yes 15mg Q.5D Take [address] (BUSPAR) 15 5-21 by mouth 2 Elfego kes MG tablet 14:04: (two) Medical 46 times Center daily. digoxin Yes 125ug QD Take 125 [facility] (LANOXIN) 5-21 mcg by [facility] 0.125 MG 14:04: mouth Medical tablet 46 daily. [place] venlafaxine Yes 150mg QD Take [address] (EFFEXOR-XR 5-21 mg by [facility] ) 150 MG 24 14:04: mouth Medic al hr capsule 46 daily. [place] apixaban Yes 5mg QD Take [address] (ELIQUIS) 5 5-21 by mouth Luke s mg Tab 14:04: daily. Medical tablet 46 [place] levETIRAcet Yes 1000mg Q.5D Take 1,[address] am (KEPPRA) 5-21 mg by [facility]ukes 1000 MG 14:04: mouth 2 Medical tablet 46 (two) Center times daily. loratadine Yes 10mg QD Take [address] (CLARITIN) 5-21 by mouth [facility] 10 mg 14:04: daily. Medical tablet 46 [place] pregabalin Yes 50mg QD Take [address] (LYRICA) 25 5-21 by mouth Luke s MG capsule 14:04: nightly . Me dical 46 [place] esomeprazol Yes 40mg QD Take 40 mg [...] MG tablet 14:04: nightly. Medi blane 46 [place] carvediloL Yes 25mg Take [address] (COREG) 25 5-21 by mouth 2 Berta es MG tablet 14:04: (two) Medical 46 times Center daily with breakfast and dinner. cariprazine Yes 1.5mg QD Take 1.[address] (Vraylar) 5-21 mg by [facility] 1.5 mg Cap 14:04: mouth Medica l 46 nightly. [place] ALPRAZolam Yes .25mg Take 0.[address] (XANAX) 5-21 mg by [facility] 0.25 MG 14:04: mouth Medical tablet 46 daily as Center needed for Anxiety. busPIRone Yes 15mg Q.5D Take [address] (BUSPAR) 15 5-21 by mouth 2 Elfego kes MG tablet 14:04: (two) Medical 46 times Center daily. digoxin Yes 125ug QD Take 125 [facility] (LANOXIN) 5-21 mcg by [facility] 0.125 MG 14:04: mouth Medical tablet 46 daily. [place] venlafaxine Yes 150mg QD Take [address] (EFFEXOR-XR 5-21 mg by [facility] ) 150 MG 24 14:04: mouth Medic al hr capsule 46 daily. [place] apixaban Yes 5mg QD Take [address] (ELIQUIS) 5 5-21 by mouth Luke s mg Tab 14:04: daily. Medical tablet 46 [place] levETIRAcet Yes 1000mg Q.5D Take 1,[address] am (KEPPRA) 5-21 mg by [facility] 1000 MG 14:04: mouth 2 Medical tablet 46 (two) Center times daily. loratadine Yes 10mg QD Take [address] (CLARITIN) 5-21 by mouth [facility]ukes 10 mg 14:04: daily. Medical tablet 46 [place] pregabalin Yes 50mg QD Take 50 mg [...] Q.5D Take [address] (ACCUNEB) 5- 05-21 e} ampule by Alberto s 1.25 mg/3 11:39: 00:00 nebulizati M edical mL 17 :00 on 2 (two) Center nebulizer times solution daily . fluticasone 2020- No 1{puff} QD Inhale [address] -vilanterol -21 05-21 puff by Alberto s (BREO 11:39: 00:00 mouth via Medica [...] with mouth Medical 54 :00 Chronic daily. [place] Bronchitis ranolazine No 500mg Q.5D Take [address] (RANEXA) - 05-19 mg by [facility]ukes 500 MG 12 22:22: 00:00 mouth 2 Medi blane hr tablet 12 :00 (two) Center times daily. levothyroxi 2020- No 125ug Take [address] ne - 05-19 mcg by Lukes (SYNTHROID, 22:20: 00:00 mouth Medi blane LEVOTHROID) 38 :00 Every Center 125 MCG morning on tablet an empty stomach. benztropine No 2mg Take [address] (COGENTIN) 02-10-19 by mouth 3 Elfego kes 2 MG tablet 22:18: 00:00 (three) Me dical 40 :00 times Center daily as needed. benztropine No 1mg Take [address] (COGENTIN) 02-10-19 by mouth Luke s 1 MG tablet 22:18: 00:00 daily as M edical 31 :00 needed. [place] ARIPiprazol No 5mg QD Take [address] e (ABILIFY) -10 02-19 by mouth Berta es 5 MG tablet 22:18: 00:00 nightly. M edical 03 :00 [place] ARIPiprazol No 10mg QD Take [address] e (ABILIFY) -10 02-19 by mouth Berta es 10 MG 22:17: 00:00 daily. Medical disintegrat 48 :00 [place] ing tablet Immunizations Ordered Filled Immunization Date Status Comments [facility] e Immunization Name Name SARS-COV-2 COVID-19 2021-02-08 Completed Unive rsity of MODERNA VACCINE 00:00:00 [facility] SARS-COV-2 COVID-19 2021-02-08 Completed Unive rsity of MODERNA VACCINE 00:00:00 [facility] SARS-COV-2 COVID-19 2021-02-08 Completed Unive rsity of MODERNA VACCINE 00:00:00 [facility] SARS-COV-2 COVID-19 2021-01-11 Completed Unive rsity of MODERNA VACCINE 00:00:00 [facility] SARS-COV-2 COVID-19 2021-01-11 Completed Unive rsity of MODERNA VACCINE 00:00:00 [facility] SARS-COV-2 COVID-19 2021-01-11 Completed Unive rsity of MODERNA VACCINE 00:00:00 [facility] Influenza Virus 2020-08-13 Completed Universit y of Vaccine 00:00:00 [facility] Influenza Virus 2020-08-13 Completed Universit y of Vaccine 00:00:00 [facility] Influenza Virus 2020-08-13 Completed Universit y of Vaccine 00:00:00 [facility] Pneumococcal 2017-06-23 Completed University o f Polysaccharide, 00:00:00 [facility] ical PPSV23 (PNEUMOVAX) Branch Pneumococcal 2017-06-23 Completed University o f Polysaccharide, 00:00:00 [facility] ical PPSV23 (PNEUMOVAX) Branch Pneumococcal 2017-06-23 Completed University o f Polysaccharide, 00:00:00 [facility] ical PPSV23 (PNEUMOVAX) Branch Influenza High Dose 2015-11-16 Completed Unive rsity of 00:00:00 [facility] Pneumococcal 2015-11-16 Completed University o f Polysaccharide, 00:00:00 [facility] ical PPSV23 (PNEUMOVAX) Branch Influenza High Dose 2015-11-16 Completed Unive rsity of 00:00:00 [facility] Pneumococcal 2015-11-16 Completed University o f Polysaccharide, 00:00:00 [facility] ical PPSV23 (PNEUMOVAX) Branch Influenza High Dose 2015-11-16 Completed Unive rsity of 00:00:00 [facility] Pneumococcal 2015-11-16 Completed University o f Polysaccharide, 00:00:00 [facility] ical PPSV23 (PNEUMOVAX) Branch Vital Signs Vital Name Observation Time Observation Value Comments Source HEIGHT 2021-02-10 21:00:00 149.9 cm WEIGHT 2021-02-10 21:00:00 59.467 kg HEIGHT 2021-02-10 21:00:00 149.9 cm WEIGHT 2021-02-10 21:00:00 59.467 kg Oxygen saturation in 2021-03-18 20:00:00 97 /min [facility] Arterial blood by Pulse oximetry Systolic blood 2021-03-18 17:24:48 132 mm[Hg] [facility] pressure Diastolic blood 2021-03-18 17:24:48 72 mm[Hg] [facility] pressure Heart rate 2021-03-18 17:24:48 96 /min [facility] Body temperature 2021-03-18 17:24:48 37 Ayaka [facility] Respiratory rate 2021-03-18 17:24:48 14 /min [facility] Body height 2021-03-18 01:37:00 149.9 cm [facility] Body weight 2021-03-18 00:09:00 58.968 kg [facility] BMI 2021-03-18 00:09:00 26.26 kg/m2 [facility] Systolic blood 2021-02-12 12:00:00 101 mm[Hg] [facility] Diastolic blood 2021-02-12 12:00:00 72 mm[Hg] [facility] Heart rate 2021-02-12 12:00:00 93 /min [facility] Respiratory rate 2021-02-12 12:00:00 18 /min [facility] Oxygen saturation in 2021-02-12 12:00:00 96 /min [facility] Arterial blood by Medical Ce nter Pulse oximetry Body temperature 2021-02-12 11:00:00 37.56 Ayaka [facility] Body height 2021-02-11 10:15:00 149.9 cm [facility] Body weight 2021-02-11 10:15:00 59.5 kg [facility] BMI 2021-02-11 10:15:00 26.48 kg/m2 [facility] Procedures Procedure Date / Time Performing Clinician Source Performed POC GLUCOSE 2021-03-18 17:31:00 Matt Berkowitz spital ECG 12-LEAD 2021-03-18 17:28:01 [facility] TROPONIN 2021-03-18 16:41:00 [facility] TTE COMPLETE, WO 2021-03-18 14:19[facility] D[facility]ER ([id number]) POC GLUCOSE 2021-03-18 13:14:00 [facility], [facility] HC COMPLETE BLD COUNT 2021-03-18 10:00:00 Lae, [facility] W/AUTO DIFF COMPREHENSIVE METABOLIC 2021-03-18 10:00:00 [facility], [facility] PANEL MAGNESIUM LEVEL 2021-03-18 10:00:00 Lae, [facility] PHOSPHORUS LEVEL 2021-03-18 10:00:00 Lae, [facility] LIPID PANEL 2021-03-18 10:00:00 Lae, [facility] HEMOGLOBIN A1C 2021-03-18 10:00:00 [facility], [facility] ESTIMATED GFR 2021-03-18 10:00:00 [facility], [facility] URINE CULTURE 2021-03-18 06:12:00 [facility], [facility] LEGIONELLA URINARY 2021-03-18 05:36:00 Laeeq, [facility] ANTIGEN STREPTOCOCCUS PNEUMONIAE 2021-03-18 05:36:00 Lae, [facility] URINARY ANTIGEN URINALYSIS SCREEN AND 2021-03-18 05:36:00 Lae, [facility] MICROSCOPY, WITH REFLEX TO CULTURE BLOOD CULTURE, AEROBIC & 2021-03-18 04:35:00 Lae, [facility] ANAEROBIC BLOOD CULTURE, AEROBIC & 2021-03-18 04:25:00 Lae, [facility] ANAEROBIC DIGOXIN LEVEL 2021-03-18 04:24:00 Lae, [facility] TROPONIN 2021-03-18 04:24:00 Antonio Hector T. [facility] LACTIC ACID LEVEL, SEPSIS 2021-03-18 04:24:00 [facility], [facility] - NOW AND REPEAT 2X EVERY 3 HOURS POC GLUCOSE 2021-03-18 01:38:00 [facility], [facility] ARTERIAL BLOOD GAS 2021-03-18 01:10:00 [facility], [facility] US DUPLEX VENOUS LOWER 2021-03-18 01:00:06 [facility] EXTREMITY BILATERAL LACTIC ACID LEVEL, SEPSIS 2021-03-17 23:47:00 [facility] - NOW AND REPEAT 2X EVERY 3 HOURS TROPONIN 2021-03-17 23:47:00 [facility] XR CHEST 1 VW PORTABLE 2021-03-17 21:20:18 [facility] COMPLETE BLD COUNT 2021-03-17 21:05:00 [facility] W/AUTO DIFF LACTIC ACID LEVEL, SEPSIS 2021-03-17 21:05:00 [facility] - NOW AND REPEAT 2X EVERY 3 HOURS COMPREHENSIVE METABOLIC 2021-03-17 21:05:00 [facility] PANEL TROPONIN 2021-03-17 21:05:00 [facility] B NATRIURETIC PEPTIDE 2021-03-17 21:05:00 [facility] D-DIMER 2021-03-17 21:05:00 [facility] ESTIMATED GFR 2021-03-17 21:05:00 [facility] ECG ED PRELIMINARY 2021-03-17 20:36:46 [facility] INTERPRETATION ECG 12-LEAD 2021-03-17 20:19:38 [facility] BASIC METABOLIC PANEL (7) 2021-02-12 05:34:00 JohanAlison [facility] MAGNESIUM 2021-02-12 05:34:00 Johan Alison [facility] PHOSPHORUS 2021-02-12 05:34:00 [facility] CBC W/PLT COUNT & AUTO 2021-02-12 04:48:00 Alison Prado I [facility] MR BRAIN WITHOUT IV 2021-02-11 16:08:00 [facility] HEAD WITHOUT IV 2021-02-11 16:07:00 Igor Chew raim [facility] MRA NECK WITHOUT IV 2021-02-11 16:07:00 Igor Chew [facility] RAPID DRUG SCREEN, URINE 2021-02-11 03:05:00 [facility] URINALYSIS WITH 2021-02-11 03:05:00 Johan [facility] MICROSCOPIC IF INDICATED Medical [place] URINALYSIS MICROSCOPIC 2021-02-11 03:05:[address] [facility] HOMOCYSTEINE 2021-02-11 02:46:00 [facility] 2021-02-11 02:46:00 [facility] TSH/FREE T4 IF INDICATED 2021-02-11 02:46:00 [facility] VITAMIN B12 AND FOLATE 2021-02-11 02:46:[address] [facility] CBC W/PLT COUNT & AUTO 2021-02-11 02:46:[address] [facility] BASIC METABOLIC PANEL (7) 2021-02-11 02:46:00 [facility] MAGNESIUM 2021-02-11 02:46:00 [facility] PHOSPHORUS 2021-02-11 02:46:00 [facility] C-REACTIVE PROTEIN 2021-02-11 02:46:00 [facility] DIGOXIN LEVEL 2021-02-11 02:46:00 [facility] XR CHEST 1 VIEW PORTABLE 2021-02-10 22:20:00 [facility] / BEDSIDE [facility] POCT-GLUCOSE METER 2021-02-10 21:28:00 Wilmer Vera [facility] LIPID PANEL 2021-02-10 21:22:00 [facility] CREATINE KINASE (CK) 2021-02-10 21:21:00 [facility] HEMOGLOBIN A1C 2021-02-10 21:21:00 Johan [facility] CBC W/PLT COUNT & AUTO 2021-02-10 21:21:00 Alison Prado CH I [facility] COMPREHENSIVE METABOLIC 2021-02-10 21:21:00 Alison Prado [facility] PROTHROMBIN TIME/INR 2021-02-10 21:21:00 Nikolski [facility] APTT 2021-02-10 21:21:00 Autumn Pradoutha [facility] MAGNESIUM 2021-02-10 21:21:00 Johan [facility] PHOSPHORUS 2021-02-10 21:21:00 [facility] HIGH SENSITIVITY TROPONIN 2021-02-10 21:21:00 Nikolski [facility] B-TYPE NATRIURETIC FACTOR 2021-02-10 21:21:00 [facility] (BNP) [facility] LACTIC ACID, VENOUS 2021-02-10 21:21:00 Alison Prado [facility] ARRYTHMIA IMPLANT REPORT 2021-02-10 00:00:00 Provider, Default [facility] - SCAN [facility] Plan of Care Planned Activity Planned Date Details Comments Source Future Scheduled 2022-05-27 HEPATITIS B VACCINES Met [facility] Test 14:45:07 (1 of 3 - 3-dose series) [code = HEPATITIS B VACCINES (1 of 3 - 3-dose series)] Future Scheduled 2022-05-27 Screening for [facility] Test 14:45:07 malignant neoplasm of cervix (procedure) [code = 806636057] Future Scheduled 2022-05-27 BREAST CANCER [facility] Test 14:45:07 SCREENING [code = BREAST CANCER SCREENING] Future Scheduled 2022-05-27 COVID-19 VACCINE (3 - Me [facility] Test 14:45:07 Booster for Moderna series) [code = COVID-19 VACCINE (3 - Booster for Moderna series)] Future Scheduled 2022-05-27 INFLUENZA VACCINE Method [facility] Test 14:45:07 [code = INFLUENZA VACCINE] Future Scheduled 2022-05-26 INFLUENZA VACCINE (#1) [facility] Test 00:00:00 [code = INFLUENZA Medical Ce nter VACCINE (#1)] Future Scheduled 2022-05-26 INFLUENZA VACCINE (#1) [facility] Test 00:00:00 [code = INFLUENZA Medical Ce nter VACCINE (#1)] Future Scheduled 2022-05-19 HEPATITIS B VACCINES Met [facility] Test 06:25:27 (1 of 3 - 3-dose series) [code = HEPATITIS B VACCINES (1 of 3 - 3-dose series)] Future Scheduled 2022-05-19 Screening for [facility] Test 06:25:27 malignant neoplasm of cervix (procedure) [code = 153204145] Future Scheduled 2022-05-19 BREAST CANCER [facility] Test 06:25:27 SCREENING [code = BREAST CANCER SCREENING] Future Scheduled 2022-05-19 COVID-19 VACCINE (3 - Me [facility] Test 06:25:27 Booster for Moderna series) [code = COVID-19 VACCINE (3 - Booster for Moderna series)] Future Scheduled 2022-05-19 INFLUENZA VACCINE Method [facility] Test 06:25:27 [code = INFLUENZA VACCINE] Future Scheduled 2021-09-[address] [facility] Test 00:00:00 (12+) [code = Medical Center DEPRESSION SCREENING (12+)] Future Scheduled 2021-09-[address] [facility] Test 00:00:00 (12+) [code = Medical Center DEPRESSION SCREENING (12+)] Future Scheduled 2021-07-11 COVID-19 VACCINE (3 - [facility] Test 00:00:00 Booster for [facility] Medical Center series) [code = COVID-19 VACCINE (3 - Booster for Moderna series)] Future Scheduled 2021-07-11 COVID-19 VACCINE (3 - [facility] Test 00:00:00 Booster for Modern[facility] Medical Center [...] 0-64 YRS (2 - PCV)] Future Scheduled 2018-06-[address] [facility] Test 00:00:00 0-64 YRS (2 - PCV) Medical C enter [code = PNEUMOCOCCAL VACCINE 0-64 YRS (2 - PCV)] Future Scheduled [address] [facility] Test 00:00:00 malignant neoplasm of Medica l Center cervix (procedure) [code = 699551853] Future Scheduled [address] [facility] Test 00:00:00 malignant neoplasm of Medica l Center cervix (procedure) [code = 258822511] Future Scheduled [address] [facility] Test 00:00:00 malignant neoplasm of Medica l Center cervix (procedure) [code = 975548405] Future Scheduled 2000 DTAP/TDAP/TD VACCINES CH I [...] Medical Center SCREENING] Future Scheduled Screening for [facility] Test malignant neoplasm of cervix (procedure) [code = 090713568] Future Scheduled INFLUENZA VACCINE [facility] Hospital Test [code = INFLUENZA VACCINE] Encounters Start End Encounter Admission Attending Care Care Encounter Source Date/Time Date/Time Type Type Clinicians Facility Department ID 2021-02-10 Inpatient ER BERSHAD, [facility] Neurology [id number] [facility] 20:21:00 WILMER 2020-09-29 Inpatient Mely, [facility] ENDO [id number] [facility] 10:15:00 Linus [id number] [facility] 2020-09-28 Inpatient EL Mely, [facility]CAP[facility] ENDO [id number] [facility] 12:00:00 Linus [id number] [facility] 2022-05-31 2022-05-31 Outpatient R ELFEGO, ANDREY [facility] [id number] Univers 11:30:00 11:30:00 ELFEGOANDREY [id number] it y [facility] 2022-05-31 2022-05-31 Outpatient R ELFEGO, ANDREY [facility] [id number] Univers 11:30:00 11:30:00 ELFEGOANDREY it y [facility] 2022-05-26 2022-05-26 Outpatient R ELFEGO, ANDREY [facility] [id number] Univers 10:00:00 10:00:00 ELFEGOANDREY [id number] it y [facility] 2022-05-24 2022-05-24 [facility] [id number] Univers 00:00:00 00:00:00 [facility] [id number] i [place] [id number] [address] OFFICE [facility] 2022-05-24 2022-05-24 Telephone Ernst [facility] [id number] Univers 00:00:00 00:00:00 [facility] [employer] [id number] [place] [id number] [address] OFFICE [facility] 2022-05-19 2022-05-19 Telephone [facility] [id number] Univers 00:00:00 00:00:00 Tucker ONTIVEROS [id number] i [place] of [place] [id number] Sc dical [address] 2022-04-07 2022-04-07 Outpatient [facility] [address] [place] 08:14:00 08:14:00 H 0714 [facility] Outre h Program 2021-05-12 2021-05-12 Orders Doctor NURYS [id number] 00:00:00 00:00:00 Only Unassigned, PINKY 350.1.13.10 [facility] 4.2.7.2.686 [id number] 2021-04-29 2021-04-29 Office Malena [facility] [id number] 12:33:16 13:56:43 Visit Tucker [place] [id number] Peak 4.2.7.2.686 Professio [id number] nal 085 [facility] 2021-04-28 2021-04-28 Orders DANITA Guy [id number] 00:00:00 00:00:00 Only [facility] [id number] [facility] 4.2.7.2.686 [id number] 2021-03-19 2021-03-19 Patient Omari, 1.2.840.1 [id number] Methodi 00:00:00 00:00:00 Outreach Ann [id number] 3.430.2.7 Hospit a .3.128176 l .8 2021-03-17 2021-03-18 Emergency Hector Alvarez 1.2.840.1 [id number] Methodi 14:59:00 17:52:00 Laeshira Veda Andrea 77975.1.[address] Matt Berkowitz 3.430.2.7 Hospita .[id number] l .8 2021-03-17 2021-03-17 Travel 1.2.840.1 [id number] Methodi 00:00:00 00:00:[id number] 3.430.2.7 0.2.7.3.698 Ho spita .3.831147 084.8 l .8 2017-09-06 2017-09-08 Inpatient Jt [facility] [employer] [id number] 10:12:00 02:32:00 [facility] Results Test Description Test Time Test Comments Results Result Comments Source ECG 12 lead 2021-03-19 14:56:41 Test Item Value Reference Range Interpretation Comme nts Ventricular rate (test code = 253) Atrial rate (test code = 255) MS interval (test code = 266) QRSD interval [...] change [facility] found- [facility] [id number] 12:41:23 Test Item Value Reference Range Interpretation Comments Urine culture isolate Mixed alok <=10-3 (test code = 84158-1) col/cc [facility] Complete, (w Contrast, Strain and 3D if needed)2021-03-18 23:04:52 Test Item Value Reference Range Interpretation Comments Ao Root Diameter (test code = 2.73 cm 1590428926) AoV Area, Vmax (test code = 2.24 cm2 8691035754) AoV Area, VTI (test code = 2.25 cm2 7575152843) AoV Mean PG (test code = mmHg 8876607304) AoV Peak PG (test code = mmHg 4494689082) AoV Vmax (test code = 5974589557) 1.46 m/s AoV VTI (test code = 3954013704) 0.28 m IVS,d (test code = 0798573226) 0.72 cm IVS/LVPW,2D (test code = 9293757859) Left Atrium Dimension Anterior 2.68 cm (test code = 8612014925) LV,d (test code = 8452458463) 3.69 cm LV EF,2D (test code = 1857478759) 79.68 % LV,s (test code = 7165793381) 2.17 cm LVOT area (test code = 9327600882) 2.75 cm2 LVOT Diam,S (test code = 1.87 cm 1625493378) LVOT Vmax (test code = 3867363623) 1.18 m/s LVOT VTI (test code = 2626395343) 0.23 m LVPWD,d (test code = 6267114079) 0.65 cm PV Pk Grad (test code = 0564778534) mmHg PV VMAX (test code = 6485031087) 0.84 m/s RVOT Vmax (test code = 0207758240) 0.85 m/s RVSP (TR) (test code = 7531954323) mmHg TR Vpeak (test code = 1872626916) 2.86 mm/s MV E A ratio (test code = 3821768440) RA pressure (test code = mmHg 3738992642) TR pk grad (test code = 7586874492) mmHg MR Vmax (test code = 5714515288) 5.49 m/s E wave decelartion time (test code msec = 3387788376) MV Peak A Alf (test code = 0.76 m/s 9024838392) MV valve area p 1/2 method (test 3.26 cm2 code = 8142562700) MV Peak E Alf (test code = 0.92 m/s 2771081300) MV stenosis pressure 1/2 time (test 67.54 ms code = 2345152317) LVOT stroke volume (test code = 0.63 cm3 0493669151) AV LVOT peak gradient (test code = mmHg 9977980220) RVSP (test code = 5145055947) mmHg Ao Root Diameter (test code = 2.73 cm 8744056550) MV mean gradient (test code = mmHg 4147889895) LV SYS VOL (test code = 7593634456) 15.61 ml LV MARTINS VOL (test code = 57.63 ml 2223828507) LA area s A4C (test code = 11.16 cm2 4040246680) LV SV Teich 2D (test code = 42.02 ml 2779314676) LV Vol s Teich PSAX (test code = 15.61 ml 7050243474) MR peak grad (test code = mmHg 7423530945) MV Vmax (test code = 2246388093) 1.21 m MV VTI Tips (test code = 0.24 m 7889451801) RVOT pk grad (test code = mmHg 3683815476) AoV Vmn (test code = 8099727236) LV FS Teich 2D (test code = 2591011562) MV AE ratio (test code = 2860216769) LV FS Cube 2D (test code = 6932043690) LVOT Vmn (test code = 0489439860) Aov area Vmn (test code = 2.13 cm2 2713025990) LVOT mean grad (test code = mmHg 0991464399) MAX Pred HR (test code = 1310989002) 85 of MPHR (test code = 1414716223) Calc MPHR (test code = 9640476183) bpm LV SV Cube 2D (test code = 39.93 ml 1190894661) LV vol d cube 2D (test code = 50.11 ml 0845719156) LV vol s cube 2D (test code = 10.18 ml 3923471796) MV Decel slope (test code = 3.97 m/s2 4870559271) Pred Exer Dur R1 (test code = 1145249186) Pred METS R1 (test code = 0362247081) LA Vol MOD A4C (test code = 24.20 ml 6855885091) Velocity Ratio (V1/V2) (test code = 0.81 m/s 4689) EF (test code = 7030783475) 72.91 % E/A ratio (test code = 4129924725) LVOT VTI (CM) (test code = 23.00 cm 1475786730) SOMMER (test code = SOMMER) [facility] [id number] 17:32:37 Test Item Value Reference Range Interpretation Comments POC glucose (test code = 75173-7) 207 mg/dL 65-99 H Lab Interpretation (test code = Abnormal 31844-5) [facility] duplex venous lower szagvkqxm6328-12-50 01:17:37 EXAMINATION: US DUPLEX VENOUS LOWER EXTREMITY [...] venous thrombosis. [facility]-[id number] Interface, Radiology Results 03/17/2021 8:20 PM CDT [...] deep venous thrombosis.[facility]-[id number] HospitalXR Chest 1 Vw [id number] 21:32:52EXAMINATION: XR CHEST 1 VW PORTABLE CLINICAL HISTORY: 40 years Female SOB COMPARISON: None. IMPRESSION: Lines, tubes, and devices: Right-sided transvenous cardiac pacemaker. Heart and mediastinum: Cardiomediastinal silhouette is normal. Lungs and pleura: There is no focal airspace disease, pleural effusion or pneumothorax. Bones/soft tissues: No acute osseous abnormality. [facility]-[id number] Dictated and approved by medical transcription radiology/fellow: Cristhian Calixto M.D. I, Jan Scott MD, personally reviewed the images and resident's/fellow's findings and agree with the final report.[facility], Radiology Results Incoming - 03/17/2021 4:35 PM CDT EXAMINATION: XR CHEST 1 VW PORTABLECLINICAL HISTORY: 40 years Female SOBCOMPARISON: None.IMPRESSION:Lines, tubes, and devices: Right-sided transvenous cardiac pacemaker.Heart and mediastinum: Cardiomediastinal silhouette is normal.Lungs and pleura: There is no focal airspace disease, pleural effusion or pneumothorax.Bones/soft tissues: No acute osseous abnormality.[facility]-[id number] and approved by medical transcription radiology/fellow: Cristhian Calixto M.D.I, Jan Scott MD, personally reviewed theimages and resident's/fellow's findings and agree with the final report.[facility] AreaARRYTHMIA IMPLANT REPORT - [id number] 20:45:31 Ordered by an unspecified provider.[facility] ED Preliminary Interpretation - Not an [id number] 20:36:46 Test Item Value Reference Range Interpretation Comments SOMMER (test code = SOMMER) Lab Interpretation (test code = Abnormal 13498-6) [facility] Metabolic [id number] 07:01:00 Test Item Value Reference Range Interpretation Comments Sodium (test code = 137 meq/L 413-358 7879-2) Potassium (test code = 4.3 meq/L 3.5-5.1 2823-3) Chloride (test code = 104 meq/L 98-107 2075-0) CO2 (test code = 24 meq/L 22-29 8-9) BUN (test code = 15 mg/dL 7- 3094-0) Creatinine (test code 0.81 mg/dL 0.57-1.25 = 2160-0) Glucose (test code = 108 mg/dL 70-105 H 2345-7) Calcium (test code = 9.2 mg/dL 8.4-10.2 00886-8) EGFR (test code = 79 mL/min/1.73 [place] [address]-0) NOT ACCURATE CREATININE CLEARANCE IN PREDICTING GLOMERULAR FILTRATION RATE . ESTIMATED GFR I S NOT APPLICABLE FOR DIALYSIS PATIENTS. SOMMER (test code = SOMMER) Special Duty Nurse ID - MACHELLE Carlos Lab Interpretation Abnormal (test code = 17629-0) [facility] Center[facility]esium[facility] 07:01:00 Test Item Value Reference Range Interpretation Comments Magnesium (test code = 2.5 mg/dL 1.6-2.6 58240-0) SOMMER (test code = SOMMER) Special Duty Nurse ID - MACHELLE L Lab Interpretation (test Normal code = 25208-3) [facility] CenterPhosphorus2021-05-21 07:01:00 Test Item Value Reference Range Interpretation Comments Phosphorus (test code = 4.3 mg/dL 2.3-4.7 2777-1) SOMMER (test code = SOMMER) Special Duty Nurse ID - MACHELLE L Lab Interpretation (test Normal code = 36014-7) [facility] CenterBASIC METABOLIC [id number] 07:01:00 Test Item Value Reference Range Interpretation [...] S NOT APPLICABLE FOR DIALYSIS PATIEN TS. Special Duty Nurse ID - PIAYA [id number] 07:01:00 Test Item Value Reference Range Interpretation Comments MAGNESIUM (BEAKER) (test code = 2.5 mg/dL 1.6-2.6 627) Special Duty Nurse ID - PIAYA [id number] 07:01:00 Test Item Value Reference Range Interpretation Comments PHOSPHORUS (BEAKER) (test code = 4.3 mg/dL 2.3-4.7 604) Special Duty Nurse ID - PIAYA LCBC with platelet count + automated [id number] 05:37:00 Test Item Value Reference Range Interpretation Comments WBC (test code = 6690-2) 6.8 See_Comment [A utomated message] The system [employer] generated this result transmitted ref erence range: 3.5 - 10 .5 K/L. The refe rence range was not u sed to interpret this result as normal/abnor mal. RBC (test code = 789-8) 5.14 See_Comment [Au tomated message] The system [employer] generated this result transmitted ref erence range: 3.93 - 5 .22 M/L. The refe rence range was not u sed to interpret this result as normal/abnor mal. MCHC (test code = 786-4) 31.6 See_Comment L [A utomated message] The system [employer] generated this result transmitted ref erence range: [...] See_Comment [Aut omated message] 777-3) The system [employer] generated this result transmitted ref erence range: 150 - 45 0 K/CU MM. The referen ce range was not u sed to interpret this result as normal/abnor mal. MPV (test code = 10.0 fL 9.4-12.3 64840-0) nRBC (test code = 413) 0 See_Comment [Aut omated message] The system [employer] generated this result transmitted ref erence range: [...] See_Comment [Aut omated message] 670) The system [employer] generated this result transmitted ref erence range: 1.56 - 6 .13 K/L. The refe rence range was not u sed to interpret this result as normal/abnor mal. # Lymphs (test code = 2.10 See_Comment [Auto mated message] 414) The system [employer] generated this result transmitted ref erence range: 1.18 - 3 .74 K/L. The refe rence range was not u sed to interpret this result as normal/abnor mal. # Monos (test code = 0.48 See_Comment H [Autom ated message] 415) The system [employer] generated this result transmitted ref erence range: 0.24 - 0 .36 K/L. The refe rence range was not u sed to interpret this result as normal/abnor mal. # Eos (test code = 416) 0.26 See_Comment [Au tomated message] The system [employer] generated this result transmitted ref erence range: 0.04 - 0 .36 K/L. The refe rence range was not u sed to interpret this result as normal/abnor mal. # Baso (test code = 417) 0.04 See_Comment [A utomated message] The system [employer] generated this result transmitted ref erence range: 0.01 - 0 .08 K/L. The refe rence range was not u sed to interpret this result as normal/abnor mal. Immature 1 % 0-1 Granulocytes-Relative (test code = 2801) Lab Interpretation (test Abnormal code = 18138-8) [facility] W/PLT COUNT & AUTO [id number] 05:37:00 Test Item Value Reference Range Interpretation [...] code = 2801) MR, MRA, BRAIN, WITHOUT [id number] 16:54:00Reason for exam:->[facility]schemic Stroke [facility] : 1980 Sex: FFINAL REPORT MR, BRAIN, WITHOUT CONTRAST, MR, MRA, BRAIN, WITHOUT CONTRAST, MR, MRA, NECK, WITHOUT IV CONTRAST INDICATION: Stroke, follow upIschemic Stroke Evaluation TECHNIQUE: Multiplanar, multisequence MR imaging of the brain without intravenous contrast.MRA of the head utilizing 3-D bzcd-nj-wthdak technique, with 3-D reconstructions.MRA of the neck utilizing 2-D and 3-D shvg-bh-eteqcm technique, with 3-D reconstructions. COMPARISON: MRI and [...] 02/11/2021 16:54:16 MR, MRA, NECK, WITHOUT IV [id number] 16:54:00Reason for exam:->Ischemic Stroke Evaluation [facility] : 1980 Sex: FFINAL REPORT MR, BRAIN, WITHOUT CONTRAST, MR, MRA, BRAIN, WITHOUT CONTRAST, MR, MRA, NECK, WITHOUT IV CONTRAST INDICATION: Stroke, follow upIschemic Stroke Evaluation TECHNIQUE: Multiplanar, multisequence MR imaging of the brain without intravenous contrast.MRA of the head utilizing 3-D dwbs-rv-rpxxpu technique, with 3-D reconstructions.MRA of the neck utilizing 2-D and 3-D rvfb-sy-iiopcj technique, with 3-D reconstructions. COMPARISON: MRI and [...] Verified Date/Time: 02/11/2021 16:54:16 MR, BRAIN, WITHOUT [id number] 16:54:00Reason for exam:->Ischemic Stroke [facility] : 1980 Sex: FFINAL REPORT MR, BRAIN, WITHOUT CONTRAST, MR, MRA, BRAIN, WITHOUT CONTRAST, MR, MRA, NECK, WITHOUT IV CONTRAST INDICATION: Stroke, follow upIschemic Stroke Evaluation TECHNIQUE: Multiplanar, multisequence MR imaging of the brain without intravenous contrast.MRA of the head utilizing 3-D rvia-xv-dtmwui technique, with 3-D reconstructions.MRA of the neck utilizing 2-D and 3-D ctkz-fg-ogogky technique, with 3-D reconstructions. COMPARISON: MRI and [...] Date/Time: 02/11/2021 16:54:16 MR brain without IV [id number] 16:54:00Interface, External Ris In - 02/11/2021 4:56 PM CDTFINAL REPORT MR, BRAIN, WITHOUT CONTRAST, MR, MRA, BRAIN, WITHOUT CONTRAST, MR, MRA, NECK, WITHOUT IV CONTRAST INDICATION: Stroke, follow upIschemic Stroke Evaluation TECHNIQUE: Multiplanar, multisequence MR imaging of the brain without intravenous contrast.MRA of the head utilizing 3-D mvtr-dr-sfuzkt technique, with 3-D reconstructions.MRA of the neck utilizing 2-D and 3-D lrao-sc-jxtqte technique, with 3-D reconstructions. COMPARISON: MRI and [...] within the head and neck. Signed: [facility] Verified Date/Time: 02/11/2021 16:54:16 [facility] [id number] 16:54:00Interface, External Ris In - 02/11/2021 4:56 PM CDTFINAL REPORT MR, BRAIN, WITHOUT CONTRAST, MR, MRA, BRAIN, WITHOUT CONTRAST, MR, MRA, NECK, WITHOUT IV CONTRAST INDICATION: Stroke, follow upIschemic Stroke Evaluation TECHNIQUE: Multiplanar, multisequence MR imaging of the brain without intravenous contrast.MRA of the head utilizing 3-D ctjl-nf-luazjr technique, with 3-D reconstructions.MRA of the neck utilizing 2-D and 3-D xijx-td-syzeeo technique, with 3-D reconstructions. COMPARISON: MRI and [...] Lakshmi Amador Verified Date/Time: 02/11/2021 16:54:16 [facility] without IV [id number] 16:54:00Interface, External Ris In - 02/11/2021 4:56 PM CDTFINAL REPORT MR, BRAIN, WITHOUT CONTRAST, MR, MRA, BRAIN, WITHOUT CONTRAST, MR, MRA, NECK, WITHOUT IV CONTRAST INDICATION: Stroke, follow upIschemic Stroke Evaluation TECHNIQUE: Multiplanar, multisequence MR imaging of the brain without intravenous contrast.MRA of the head utilizing 3-D kbfm-uv-qfgdrn technique, with 3-D reconstructions.MRA of the neck utilizing 2-D and 3-D dayg-rv-zsmioa technique, with 3-D reconstructions. COMPARISON: MRI and [...] Signed: Lakshmi Amdaor Verified Date/Time: 02/11/2021 16:54:16 [facility]RPR2021-[facility]-20 14:02:00 Test Item Value Reference Range Interpretation Comments RPR (test code = 80730-1) Nonreactive Nonreactive Lab Interpretation (test code = Normal 77778-5) [facility] CenterRPR2021-05-20 14:02:00 Test Item Value Reference Range Interpretation Comments RPR SCREEN (BEAKER) (test code = Nonreactive Nonreactive 420) Hemoglobin [id number] 09:35:00 Test Item Value Reference Range Interpretation Comments Hemoglobin A1C (test code = 4548-4) 6.0 % 4.3-6.1 Lab Interpretation (test code = Normal 36025-5) [facility] CenterHEMOGLOBIN [id number] 09:35:00 Test Item Value Reference Range Interpretation Comments HEMOGLOBIN A1C (BEAKER) (test code = 6.0 % 4.3-6.1 368) Rapid drug screen, [id number] 07:26:00 Test Item Value Reference Range Interpretation Comments Barbiturate Screen Negative Negative (test code = 92156-9) Benzodiazepine Screen Negative Negative (test code = 85061-3) Cocaine (Metab.) Negative Negative Screen (test code = 3397-7) Methadone Screen (test Negative Negative code = 52295-6) Opiate Screen (test Negative Negative code = 04118-5) Cannabinoid Screen Negative Negative (test code = 12746-8) Amph/Methamph Screen Negative Negative (test code = 11842-5) Phencyclidine Screen Negative Negative (test code = 06871-3) pH, UA (test code = 6.5 5.0-8.0 5803-2) SOMMER (test code = SOMMER) DRUG CUTOFF CONC.Cocaine 300 ng/mL Cannabinoid 50 ng/mLBenzodiazepine 200 ng/mLBarbiturate 200 ng/mLPhencyclidine 25 ng/mLOpiate 300 ng/mLMethadone 300 ng/mLAmphetamine/ 1000 ng/mL Methamphetamine This assay provides an unconfirmed qualitative test result for the clinical management of patients in emergency situations. Chain of custody not maintained. Some hpxr-kli-wnsvvev medications, as well as adulterants, may cause inaccurate results. Clinical correlation should be applied. A more comprehensive drug screen or confirmation of a detected drug may be performed upon request.Special Duty Nurse ID - VIET M Lab Interpretation Normal (test code = 62105-2) [facility] CenterRAPID DRUG SCREEN, [id number] 07:26:00 Test Item Value Reference Range Interpretation [...] ng/mLOpiate 300 ng/mLMethadone 300 ng/mLAmphetamine/ 1000 ng/mL MethamphetamineThisassay provides an unconfirmed qualitative test result for the clinical management of patients in emergency situations. Chain of custody not maintained. Some xfew-emj-gyajgdf medications, as well as adulterants, may cause inaccurate results. Clinical correlation should be applied. A more comprehensive drug screen or confirmation of a detected drug may be performed upon request.Special Duty Nurse ID - VIET MUrinalysis with Microscopic If [id number] 07:11:00 Test Item Value Reference Range Interpretation Comments Color, UA (test code = Light Yellow 5778-6) Clarity, UA (test code = Clear 5767-9) Specific Adin, UA (test 1.012 1.001-1.035 code = 5811-5) pH, UA (test code = 6.5 5.0-8.0 5803-2) Protein, UA (test code = Negative Negative 55092-2) Glucose, UA (test code = Negative Negative 365) Ketones, UA (test code = Negative Negative 2514-8) Bilirubin, UA (test code = Negative Negative 05707-5) Blood, UA (test code = Small Negative A 24630-6) Nitrite, UA (test code = Negative Negative 5802-4) Leukocytes, UA (test code Small Negative A = 5799-2) Urobilinogen, UA (test 0.2 mg/dL 0.2-1 code = 04135-5) Specimen Source (test code = 2795) SOMMER (test code = SOMMER) Special Duty Nurse ID - [auto]Special Duty Nurse ID - tech Lab Interpretation (test Abnormal code = 50905-5) [facility] CenterUrinalysis Microscopic [id number] 07:11:00 Test Item Value Reference Range Interpretation Comments RBC, UA (test 11 See_Comment [Automated me ssage] code = 25197-3) The system w [employer] generated this result transmitted ref erence range: /HPF. Th e reference range was not used to int erpret this result as normal/abnormal . WBC, UA (test 11 See_Comment [Automated me ssage] code = 5821-4) The system [facility] generated this result transmitted ref erence range: /HPF. Th e reference range was not used to int erpret this result as normal/abnormal . Mucus (test Rare code = 8247-9) Squam Epithel, 3 See_Comment [Automated m essage] UA (test code = The system [facility] 57470-6) generated this result transmitted ref erence range: /HPF. Th e reference range was not used to int erpret this result as normal/abnormal . SOMMER (test code Special Duty Nurse ID - tech = SOMMER) [facility] CenterURINALYSIS WITH MICROSCOPIC IF [id number] 07:11:00 Test Item Value Reference Range Interpretation [...] = 463) SOURCE(BEAKER) (test code = 2795) Special Duty Nurse ID - [auto]Special Duty Nurse ID - techURINALYSIS [id number] 07:11:00 Test Item Value Reference Range Interpretation Comments RBC UA (BEAKER) (test code = 519) 11 /HPF WBC UA (BEAKER) (test code = 520) 11 /HPF MUCUS (BEAKER) (test code = 1574) Rare SQUAMOUS EPITHELIAL (BEAKER) (test 3 /HPF code = 516) Special Duty Nurse ID - techDigoxin [id number] 06:22:00 Test Item Value Reference Range Interpretation Comments Digoxin Lvl (test code = <0.30 0.8-2 L 12827-7) SOMMER (test code = SOMMER) Special Duty Nurse ID - PIAYA L Lab Interpretation (test Abnormal code = 74064-5) [facility] CenterDIGOXIN [id number] 06:22:00 Test Item Value Reference Range Interpretation Comments DIGOXIN LEVEL (BEAKER) (test code = < ng/mL 0.80-2.00 L 669) Special Duty Nurse ID - MACHELLE PKwvavfncglcg2945-89-41 05:58:00 Test Item Value Reference Range Interpretation Comments Homocysteine (test code = 7.3 umol/L 5.1-15.4 12035-1) SOMMER (test code = SOMMER) Special Duty Nurse ID - PIAYA L Lab Interpretation (test Normal code = 99380-7) [facility] CenterTSH/Free T4 If Lbrtlryiu2871-73-13 05:58:00 Test Item Value Reference Range Interpretation Comments TSH (test code = 4.368 See_Comment [Automated 40001-4) message] The system which generated this result transmit aida reference range : 0.350 - 4.940 uIU/mL. The reference range was not used to interpret this result as normal/abnormal . SOMMER (test code = SOMMER) Special Duty Nurse ID - PIAYA L Lab Interpretation Normal (test code = 93914-2) [facility] CenterVitamin B12 and Calowj1740-20-69 05:58:00 Test Item Value Reference Range Interpretation Comments Vitamin B12 (test 557 pg/mL 213-816 code = 2132-9) Folate (test code = 11.20 ng/mL See_Comment [Automa aida 2284-8) message] The system which generated this result transmit aida reference range : >=7.00. The reference range was not used to interpret this result as normal/abnormal . SOMMER (test code = SOMMER) Special Duty Nurse ID - MACHELLE L Lab Interpretation Normal (test code = 06003-7) [facility] CenterKgtwumNKRRCVFWXAOS4249-09-67 05:58:00 Test Item Value Reference Range Interpretation Comments HOMOCYSTEINE (BEAKER) (test code = 7.3 umol/L 5.1-15.4 642) Special Duty Nurse ID - PIDEANN LTSH/FREE T4 IF [id number] 05:58:00 Test Item Value Reference Range Interpretation Comments THYROID STIMULATING HORMONE 4.368 uIU/mL 0.350-4.940 (BEAKER) (test code = 772) Special Duty Nurse ID - MACHELLE LVITAMIN B12 AND [id number] 05:58:00 Test Item Value Reference Range Interpretation Comments VITAMIN B12 557 pg/mL 213-816 (BEAKER) (test code = 774) FOLATE (BEAKER) 11.20 ng/mL See_Comment [Automated message] (test code = 362) The system which generated this result transmitted ref erence range: >=7.00. The reference range was not used to interpr et this result as normal/abnormal . Special Duty Nurse ID - MACHELLE LC-Reactive Delncis9021-47-24 04:54:00 Test Item Value Reference Range Interpretation Comments CRP (test code = 676) 0.81 mg/dL 0-0.5 H SOMMER (test code = SOMMER) Special Duty Nurse ID - SHAMIKAAYA L Lab Interpretation (test Abnormal code = 52342-7) [facility] CenterMAGNESIUM2021-05-20 04:54:00 Test Item Value Reference Range Interpretation Comments MAGNESIUM (BEAKER) 2.1 mg/dL 1.6-2.6 Specimen slightly (test code = 627) hemolyzed Special Duty Nurse ID - SHAMIKADEANN [id number] 04:54:00 Test Item Value Reference Range Interpretation Comments PHOSPHORUS (BEAKER) 4.3 mg/dL 2.3-4.7 Specimen slightly (test code = 604) hemolyzed Special Duty Nurse ID - SHAMIKADEANN LBASIC METABOLIC [id number] 04:54:00 Test Item Value Reference Range Interpretation [...] S NOT APPLICABLE FOR DIALYSIS PATIEN TS. Special Duty Nurse ID - PIAYA LC-REACTIVE [id number] 04:54:00 Test Item Value Reference Range Interpretation Comments C-REACTIVE PROTEIN (BEAKER) (test 0.81 mg/dL 0.00-0.50 H code = 676) Special Duty Nurse ID - MACHELLE LCBC W/PLT COUNT & AUTO [id number] 02:54:00 Test Item Value Reference Range Interpretation [...] = 2801) RAD, CHEST, 1 VIEW, NON [id number] 22:40:00Reason for exam:->strokeShould this be performed at the bedside?->Yes [facility] 1980 Sex: FFINAL REPORT RAD, CHEST, 1 VIEW, NON DEPT TECHNIQUE: Frontal view(s) of the chest. INDICATION: stroke. COMPARISON: 08/20/2018 chest radiograph FINDINGS/IMPRESSION: Lines/Tubes: Unchanged 2-lead pacemaker Lungs/pleura: No focal consolidation or definite interstitial pulmonary edema.No pleural effusion. No pneumothorax. Heart and Mediastinum: Unremarkable. Soft Tissues and Bones: Unremarkable. Signed: Wilmer Nievesort Verified Date/Time: 02/10/2021 22:40:02 Reading Location: [address] Transitional Reading Room XR chest 1 view portable / [id number] 22:40:00Interface, External Ris In - 02/10/2021 10:42 [...] Verified Date/Time: 02/10/2021 22:40:02 Reading Location: [address] Transitional Reading Room [facility]CB W/PLT COUNT & AUTO [id number] 22:16:00 Test Item Value Reference Range Interpretation [...] Range Interpretation Comments BNP (test code = 29182-4) <10 0-100 SOMMER (test code = SOMMER) Special Duty Nurse ID - BS Lab Interpretation (test Normal code = 11619-7) [facility] CenterB-TYPE NATRIURETIC FACTOR (BNP)2021-02-10 22:04:00 Test Item Value Reference Range Interpretation Comments B-TYPE NATRIURETIC PEPTIDE (BEAKER) < pg/mL 0-100 (test code = 700) Special Duty Nurse ID - BSHigh Sensitivity Troponin I ([facility]/Haley Only)2021-02-10 21:57:00 Test Item Value Reference Range Interpretation Comments Troponin I HS (test <4 See_Comment [Automa aida code = 41200-3) message] The system which generated this result transmitted reference range : <=17 pg/ml. The reference range was not used to interpret this result as normal/abnormal . SOMMER (test code = Special Duty Nurse ID - SOMMER) BSThe ASSOCIATE PROFESSOR OF MEDIA ARTS STAT High Sensitivity Troponin-I results should be used in conjunction with other diagnostic information such as ECG, clinical observations and information, and patient symptoms to aid in the diagnosis of AL. Lab Interpretation Normal (test code = 39175-1) [facility] CenterHIGH SENSITIVITY TROPONIN [id number] 21:57:00 Test Item Value Reference Range Interpretation Comments HIGH SENSITIVITY < pg/ml See_Comment [Automated message] TROPONIN I (test code = The system which [id number]) generated this result transmitted ref erence range: <=17. Th e reference range was not used to interpr et this result as normal/abnormal . Special Duty Nurse ID - BSThe ASSOCIATE PROFESSOR OF MEDIA ARTS STAT High Sensitivity Troponin-I results should be used in conjunctionwith other diagnostic information such as ECG, clinical observations and information, and patient symptoms to aid in the diagnosis of AL.Lipid [id number] 21:54:00 Test Item Value Reference Range Interpretation Comments Triglycerides (test 171 mg/dL Specimen code = 2571-8) markedly hemolyzed Cholesterol (test 218 mg/dL Specimen code = 2093-3) markedly hemolyzed HDL (test code = 47 mg/dL 5-9) LDL Calculated (test 137 mg/dL code = 42004-1) SOMMER (test code = Triglyceride SOMMER) Reference Range: Low Risk <150 Borderline 150-199 High Risk 200-499 Very High Risk >=500 Cholesterol Reference Range: Low Risk <200 Borderline 200-239 High Risk >240 HDL Cholesterol Reference Range: Low Risk >=60 High Risk <40 LDL Cholesterol Reference Range: Optimal <100 Near Optimal 100-129 Borderline 130-159 High 160-189 Very High >=190 Special Duty Nurse ID - BS [facility] [id number] 21:54:00 Test Item Value Reference Range Interpretation [...] Borderline 130-159 High 160-189 Very High >=190 Special Duty Nurse ID - BSComprehensive metabolic [id number] 21:52:00 Test Item Value Reference Range Interpretation Comments Protein, Total 8.0 See_Comment Specimen slig htly (test code = hemolyzed 2884-2) [Automated message] The system which generated this result transmit aida reference range : 6.0 - 8.3 gm/dL . The reference range was not u sed to interpret th is result as normal/abnormal . Albumin (test code 4.2 g/dL 3.5-5 Specimen slightly = 67504-2) hemolyzed Alkaline 135 U/L 40-150 Phosphatase (test code = 6768-6) Total Bilirubin 0.2 mg/dL 0.2-1.2 Specimen sli ghtly (test code = hemolyzed 1974-) Sodium (test code = 139 meq/L 482-345 0685-2) Potassium (test 4.5 meq/L 3.5-5.1 Specimen sli ghtly code = 2823-3) hemolyzed Chloride (test code 103 meq/L 98-107 = 5-0) CO2 (test code = 25 meq/L -2027-) BUN (test code = 9 mg/dL -4-0) Creatinine (test 0.78 mg/dL 0.57-1.25 Specimen sl ightly code = 2160-0) hemolyzed Glucose (test code 105 mg/dL 70-105 = 2345-7) Calcium (test code 9.6 mg/dL 8.4-10.2 = 93951-8) AST (test code = 28 U/L 5-34 Specimen sl ightly 1920-8) hemolyzed ALT (test code = 52 U/L 6-55 Specimen sl ightly 1742-6) hemolyzed EGFR (test code = 82 mL/min/1.73 [place] [address]-0) NOT ACCURATE CREATININE CLEARANCE IN PREDICTING GLOMERULAR FILTRATION RATE . ESTIMATED GFR I S NOT APPLICABLE FOR DIALYSIS PATIEN TS. SOMMER (test code = Special Duty Nurse ID - BS SOMMER) [facility] Kinase (CK)2021-02-10 21:52:00 Test Item Value Reference Range Interpretation Comments Total CK (test code = 70 U/L 29-200 2157-6) SOMMER (test code = SOMMER) Special Duty Nurse ID - BS Lab Interpretation (test Normal code = 48504-6) [facility] CenterMAGNESIUM2021-05-19 21:52:00 Test Item Value Reference Range Interpretation Comments MAGNESIUM (BEAKER) 2.2 mg/dL 1.6-2.6 Specimen slightly (test code = 627) hemolyzed Special Duty Nurse ID - [id number] 21:52:00 Test Item Value Reference Range Interpretation Comments PHOSPHORUS (BEAKER) 4.4 mg/dL 2.3-4.7 Specimen slightly (test code = 604) hemolyzed Special Duty Nurse ID - BSCOMPREHENSIVE METABOLIC [id number] 21:52:00 Test Item Value Reference Range Interpretation [...] S NOT APPLICABLE FOR DIALYSIS PATIEN TS. Special Duty Nurse ID - BSCREATINE KINASE (CK)2021-02-10 21:52:00 Test Item Value Reference Range Interpretation Comments CREATINE KINASE TOTAL (BEAKER) (test 70 U/L 29-200 code = 380) Special Duty Nurse ID - [id number] 21:46:00 Test Item Value Reference Range Interpretation Comments PTT (test code = 66542-9) 30.5 See_Comment [ Automated message] The system [employer] generated this result transmitted ref erence range: 22.5 - 3 6.0 seconds. The re ference range was not u sed to interpret this result as normal/abnor mal. Lab Interpretation (test Normal code = 67852-1) [facility] CenterLactic acid, [id number] 21:46:00 Test Item Value Reference Range Interpretation Comments Lactate, Venous (test 1.96 mmol/L 0.5-2.2 Specim en code = 2872) markedly hemolyzed SOMMER (test code = SOMMER) Special Duty Nurse ID - BS Lab Interpretation Normal (test code = 31437-0) [facility] CenterAPTT2021-05-19 21:46:00 Test Item Value Reference Range Interpretation Comments PARTIAL THROMBOPLASTIN TIME 30.5 seconds 22.5-36.0 (BEAKER) (test code = 760) LACTIC ACID, [id number] 21:46:00 Test Item Value Reference Range Interpretation Comments LACTATE BLOOD VENOUS 1.96 mmol/L 0.50-2.20 Specime n markedly (2) (BEAKER) (test hemolyzed code = 2872) Special Duty Nurse ID - BSProthrombin time/[id number] 21:45:00 Test Item Value Reference Interpretation Comments Range Protime (test code = 12.7 See_Comment [Autom ated 5902-2) message] The system which generated this result transmitted reference range : 11.9 - 14.2 seconds. The reference range was not used to interpret this result as normal/abnormal . INR (test code = 0.98 See_Comment [Automated 3901-6) message] The system which generated this result [...] valves. Lab Interpretation Normal (test code = 37894-9) [facility] CenterPROTHROMBIN TIME/[id number] 21:45:00 Test Item Value Reference Range Interpretation Comments PROTIME (BEAKER) 12.7 seconds 11.9-14.2 (test code = 759) INR (BEAKER) (test 0.98 See_Comment [Automat ed message] code = 370) The system [employer] generated this result transmitted ref erence range: <=5.90. The reference range was not used to int erpret this result as normal/abnormal . RECOMMENDED COUMADIN/WARFARIN INR THERAPY RANGESSTANDARD DOSE: 2.0 - 3.0 Includes: PROPHYLAXIS for venous thrombosis, systemic embolization; TREATMENT for venous thrombosis and/or pulmonary embolus.HIGH RISK: Target INR is 2.5-3.5 for patients with mechanical heart valves.POC-Glucose [id number] 21:39:00 Test Item Value Reference Range Interpretation Comments POC-Glucose Meter (test 93 mg/dL 70-110 : TE STED AT [facility] code = 1538) [address] [place], [address]: Special Duty Nurse/Techni rhonda ID = [id number] for AILYN JAVIER Lab Interpretation (test Normal code = 66939-9) [facility] CenterPOCT-GLUCOSE [id number] 21:39:00 Test Item Value Reference Range Interpretation Comments POC-GLUCOSE METER 93 mg/dL 70-110 : TESTED A T [facility] 6720 (BEAKER) (test code = AYLIN Rivera [facility], 1538) [address]: Special Duty Nurse/Techni rhonda ID = [id number] for GERTRUDE SHAY [id number] 15:45:00 Test Item Value Reference Range Interpretation Comments SURG (test code = SURG) RUN DATE: 09/30/20 [facility] - LAB PAGE 1 RUN TIME: 1545 Specimen Inquiry RUN USER: INTERFACE PATIENT: ADAM RIVERA LOC: [place] Vergara #: [id number] AGE/SX: 40/F ROOM: RE09/29/20REG DR: Linus Boone MD : 82 BED: DIS: STATUS: [facility] TLOC: SPEC #: [id number] RECD: 09/29/20 STATUS: MACIEL REChapis #: [id number] WU: 09/29/[address]: Linus Boone MD ENTERED: 09/29/20 SP TYPE: SURG OTHR DR: Undefined Provider ORDERED: SURG PATH LVL 4 COPIES TO: Linus Boone MD [address] [place] [address] Undefined Provider HISTOLOGY: TISSUE ID BLK PCS DHIRAJ LEV PROCEDURE DISPOSITION ____ ___ ___ ___ STOMACH, NOS A 1 2 PROCEDURES: SURG PATH LVL 4 (09/29/20) TISSUES: A. STOMACH, NOS - GASTRIC BIOPSY CLINICAL HISTORY R10.13, K21.9, K92.0, R14.0, R11.2, R19.7, R19.4 CPT CODES CPT CODE(S): 64259 , , , , , , FINAL DIAGNOSIS Stomach, biopsy: MILD CHRONIC GASTRITIS NEGATIVE FOR INTESTINAL METAPLASIA, DYSPLASIA, OR MALIGNANCY NEGATIVE FOR HELICOBACTER PYLORI ORGANISMS GROSS DESCRIPTION Gastric biopsy. Received in formalin are two wilkinson tissue fragments, 0.4 cm each, all as A. bk/nr Grossing performed at [facility] Pathology, [address] [place] [address], [address], [place] [address]. Waist Presser: Aditya Hanson M.D. CONTINUED ON NEXT PAGE RUN DATE: 09/30/20 [facility] [place] - LAB PAGE 2 RUN TIME: 1545 Specimen Inquiry RUN USER: INTERFACE SPEC #: [id number] PATIENT: ADAM RIVERA #[id number] (Continued) MICROSCOPIC DESCRIPTION Gastric biopsy. Sections demonstrate gastric mucosa with mild chronic inflammation. No dysplasia or malignancy is identified. No evidence of Helicobacter pylori organisms or intestinal metaplasia is seen. Signed SIGNATURE ON MERON MaeganHector M 09/30/20 1545 END OF REPORT COVID 19 INHOUSE [id number] 13:41:00 Test Item Value Reference Range Interpretation Comments COVID 19 INHOUSE AG NEGATIVE Negative Per marino facturer, (test code = negative result s should [id number]) be treated aspr esumptive and, if inconsi [...] symptoms co nsistent with COVID-19. BASIC METABOLIC [id number] 13:40:00 Test Item Value Reference Range Interpretation [...] MG/DL 8.5-10.1 N - XR CHEST 1 [id number] 13:33:00 [facility] : 1980 Sex: F Name: ADAM RIVERA [place] : 1980 Age/S: 40 / F [id number] Unit #: [id number] Loc: [place] [address] Phys: Linus Boone MD Acct: [id number] Dis Date: Status: PRE WVC PHONE #: [phone] Exam Date: 09/28/2020 1326 FAX #: Reason: PREOP EXAMS: CPT: [id number] XR CHEST 1 V 45082 Fluoro Time: DAP (Gy m2): Air Kerma [...] acute cardiopulmonary process. at 1333 Reported and signedby: Lynda Pitts M.D. CC: Linus Boone MD PAGE 1 Signed Report Name: ADAM RIVERA [place] : 1980 Age/S: 40 / F [id number] Unit #: [id number] Loc: [place] [address] Phys: Linus Boone MD Acct: [id number] Dis Date: Status: PRE [facility] PHONE #: [phone] ExamDate: 09/28/2020 1326 FAX #: Reason: PREOP EXAMS: CPT: [id number] XR CHEST 1 V 80176 Fluoro Time: DAP(Gy m2): Air Kerma (mGy): (Continued) Technologist: Shari Davila, RT(R)(CT) Trnscb Date/Time: 09/28/2020 (8217) JulissaMD16 Orig Print D/T: S: 09/28/2020 (8230) PAGE 2 Signed Report PROTHROMBIN [id number] 13:29:00 Test Item Value Reference Range Interpretation Comments PT PATIENT (test code = PTP) 10.6 SECONDS 9.3-12.9 N INTERNATIONAL NORMAL RATIO 0.95 INR Unit 0.8-1.2 N (test code = INR) THROMBOPLASTIN TIME [id number] 13:29:00 Test Item Value Reference Range Interpretation Comments THROMBOPLASTIN TIME PARTIAL 28.0 SECONDS 26-35 N (test code = PTT) CBC W/AUTO [id number] 13:26:00 Test Item Value Reference Range Interpretation [...] code NO DIFF/SCN CRITERIA = MDIFF) POCT-GLUCOSE [id number] 10:22:00 Test Item Value Reference Range Interpretation Comments POC-GLUCOSE METER 102 mg/dL 70-110 TESTED AT [place] [address] ([facility]) (test code = A[place] 1538) [address] MR, MRA, BRAIN, WITHOUT [id number] 09:32:00Reason for exam:->Ischemic Stroke EvaluationFINAL REPORT MRA Head CLINICAL HISTORY: Ischemic Stroke TECHNIQUE: MRA of the head utilizing 3-D ejms-ow-qunsgc technique, with 3-D reconstructions. COMPARISON: None FINDINGS: There is no evidence of intracranial aneurysm, focal stenosis, or major branch vessel occlusion. IMPRESSION: No evidence for a major [place] of [place] proximal branch vessel occlusion. MRA Neck CLINICAL HISTORY: Ischemic Stroke TECHNIQUE: MRA of the neck utilizing 2-D and 3-D ejhs-pc-gzrvpy technique, with 3-D reconstructions. COMPARISON: None FINDINGS: The carotid arteries in the neck are patent includingtheir bifurcations. There is antegrade flow in the vertebral arteries in the neck. IMPRESSION: No evidence of hemodynamically significant stenosis in the cervical carotid or vertebral arteries by NASCET criteria. Signed: Santos Winn MDReport Verified Date/Time: 08/21/2018 09:32:09 Reading Location: [address] Neuro Reading Room MR, MRA, NECK, WITHOUT IV [id number] 09:32:00Reason for exam:->Ischemic Stroke EvaluationFINAL REPORT MRA Head CLINICAL HISTORY: Ischemic Stroke TECHNIQUE: MRA of the head utilizing 3-D dhce-bi-szypbm technique, with 3-D reconstructions. COMPARISON: None FINDINGS: There is no evidence of intracranial aneurysm, focal stenosis, or major branch vessel occlusion. IMPRESSION: No evidence for a major [place] of [place] proximal branch vessel occlusion. MRA Neck CLINICAL HISTORY: Ischemic Stroke TECHNIQUE: MRA of the neck utilizing 2-D and 3-D ywat-td-faefco technique, with 3-D reconstructions. COMPARISON: None FINDINGS: The carotid arteries in the neck are patent includingtheir bifurcations. There is antegrade flow in the vertebral arteries in the neck. IMPRESSION: No evidence of hemodynamically significant stenosis in the cervical carotid or vertebral arteries by NASCET criteria. Signed: Santos Winnort Verified Date/Time: 08/21/2018 09:32:09 Reading Location: [address] Neuro Reading Room MR, BRAIN, WITHOUT [id number] 09:25:00Reason for exam:->Ischemic Stroke EvaluationFINAL REPORT MRI [...] Winn Verified Date/Time: 08/21/2018 09:25:25 Reading Location: [facility] B1 C013V Neuro Reading Room POCT-GLUCOSE [id number] 21:26:00 Test Item Value Reference Range Interpretation Comments POC-GLUCOSE METER 119 mg/dL 70-110 H TESTED AT [place] [address] ([facility]) (test code = [place] 1538) [address] POCT-GLUCOSE [id number] 18:03:00 Test Item Value Reference Range Interpretation Comments POC-GLUCOSE METER 119 mg/dL 70-110 H TESTED AT [place] [address] ([facility]) (test code = AYLIN Rivera [facility] 1538) [address] POCT-GLUCOSE [id number] 12:39:00 Test Item Value Reference Range Interpretation Comments POC-GLUCOSE METER 120 mg/dL 70-110 H TESTED AT [place] [address] ([facility]) (test code = AYLIN Rivera [facility] 1538) [address] RAD, CHEST, 1 VIEW, NON [id number] 12:04:00Reason for exam:->To Locate Heart Device (Pacemaker)Should [...] MDReport Verified Date/Time: 08/20/2018 12:04:06 [facility] -GLUCOSE [id number] 09:17:00 Test Item Value Reference Range Interpretation Comments POC-GLUCOSE METER 121 mg/dL 70-110 H TESTED AT [place] [address] ([facility]) (test code = AYLIN Rivera [facility] 1538) [address] BASIC METABOLIC [id number] 06:56:00 Test Item Value Reference Range Interpretation [...] NOT APPLICABLE FOR DIALYSIS PATIEN TS. POCT-GLUCOSE [id number] 21:09:00 Test Item Value Reference Range Interpretation Comments POC-GLUCOSE METER 109 mg/dL 70-110 TESTED AT [facility] (test code = [place] 1538) [address] POCT-GLUCOSE [id number] 17:15:00 Test Item Value Reference Range Interpretation Comments POC-GLUCOSE METER 117 mg/dL 70-110 H TESTED AT [facility] [address] [facility] (test code = [place] 1538) [address] VITAMIN B12 AND [id number] 06:39:00 Test Item Value Reference Range Interpretation Comments VITAMIN B12 (BEAKER) (test code = 524 pg/mL 213-816 774) FOLATE (BEAKER) (test code = 362) 13.5 ng/mL >=7.0 BASIC METABOLIC [id number] 05:48:00 Test Item Value Reference Range Interpretation [...] GFR I S NOT APPLICABLE FOR DIALYSIS PATISTEPHANIE TS. [id number] 15:42:00 Test Item Value Reference Range Interpretation Comments RPR SCREEN (BEAKER) (test code = Nonreactive Nonreactive 420) HEMOGLOBIN [id number] 09:14:00 Test Item Value Reference Range Interpretation Comments HEMOGLOBIN A1C (BEAKER) (test code = 5.3 % 4.3-6.1 368) TSH/FREE T4 IF [id number] 04:49:00 Test Item Value Reference Range Interpretation Comments THYROID STIMULATING HORMONE 3.18 uIU/mL 0.35-4.94 (BEAKER) (test code = 772) BASIC METABOLIC [id number] 04:38:00 Test Item Value Reference Range Interpretation [...] NOT APPLICABLE FOR DIALYSIS PATIEN TS. LIPID [id number] 04:38:00 Test Item Value Reference Range Interpretation [...] 130-159 High 160-189 Very High >=190HEPATIC FUNCTION [id number] 04:38:00 Test Item Value Reference Range Interpretation [...] (test code = 413) AFB Culture and [id number] 13:24:00Specimen/Source: Wound/PACEMAKERCollected: 09/05/2017 19:45 Status: Final Last Updated: 11/01/2017 13:24 VII-Ndwzm-Czsnvowyfzjf (Final) (Final) 09/07/17 No acid fast bacill seen on direct smear Culture Result (Final) (Final) 11/01/17 No growth of AFB at six (6) weeksFungus Culture with [id number] 12:12:00Specimen/Source: Wound/PACEMAKERCollected: 09/05/2017 19:45 Status: Final Last Updated: 10/22/2017 12:12 Fungal Smear Result (Final) (Final) 09/06/17 No yeast or hyphae seen Culture Result (Final) (Final) 10/22/17 No fungus isolated at 6 weeks Culture, Blood [id number] 08:23:00Specimen: BloodCollected: 09/04/2017 20:30 Status: Final Last Updated: 09/10/2017 08:23 Culture Result (Final) (Final) No Growth After 5 DaysCulture, Blood [id number] 08:23:00Specimen: BloodCollected: 09/04/2017 20:15 Status: Final Last [...] <=8/4 Susceptible Cefazolin (CFZ) <=4 Susceptible Ceftriaxone (FREELANCE TRANSLATOR) <=4 Susceptible Chloramphenicol (C) <=8 Susceptible Ciprofloxacin [...] National Kidney Foundation,http ://nkd ep.nih.gov CBC with [id number] 07:39:00 Test Item Value Reference Range Interpretation [...] code = ALYMPH) 1.7 K/cumm 0.5-4.6 N [place] Abs (test code = AMONO) 0.3 K/cumm 0.0-1.2 N Eos Abs (test code = AEOS) 0.29 K/cumm 0.00-0.74 N Baso Abs (test code = ABASO) 0.0 K/cumm 0.00-0.21 N Vancomycin, [id number] 12:33:00 Test Item Value Reference Range Interpretation Comments Vanco, Trou (test code = VANTR) 7.9 ug/mL 10.0-20.0 L Magnesium, [id number] 06:37:00 Test Item Value Reference Range Interpretation Comments Magnesium (test code = MG) 2.4 mg/dL 1.7-2.5 N Renal [id number] 06:29:00 Test Item Value Reference Range Interpretation [...] National Kidney Foundation,http ://nkd ep.nih.gov BHCG, Serum, [id number] 06:26:00 Test Item Value Reference Range Interpretation Comments Preg Qual [Se] (test code = BSHCG) Negative Negative N CBC with [id number] 06:24:00 Test Item Value Reference Range Interpretation [...] code = ALYMPH) 1.6 K/cumm 0.5-4.6 N [place] Abs (test code = AMONO) 0.4 K/cumm 0.0-1.2 N Eos Abs (test code = AEOS) 0.18 K/cumm 0.00-0.74 N Baso Abs (test code = ABASO) 0.0 K/cumm 0.00-0.21 N XR CHEST 1 [id number] 16:29:55XR CHEST 1 VIEWLOCATION: V31RNULUVIQYM: None.INDICATION: REVIEW PICC LINE PLACEMENTDISCUSSION:AP chest and [...] = TSH) 3.44 mIU/mL 0.270-4.200 N Lipid [id number] 05:47:00 Test Item Value Reference Range Interpretation Comments Cholesterol (test 160 mg/dL 0-200 N code = CHOL) Triglycerides (test 126 mg/dL 9-200 N code = TRIG) HDL (test code = 35 mg/dL 50-60 L HDL) Chol/HDL (test code 4.6 Ratio 0.0-4.4 H = CHOLPHDL) LDL, Calculated 100 0-130 N (NOTE)RISK O F HEART (test code = LDLC) DISEASEPu blished by [place] Heart AssociationAnal yte Optimal Boderli ne Increased RiskC HOL <200 200-239 >240TRI G <150 150-199 >200HDL Male: >60 <40HDL Fem dimas: >60 <50LDL <100 130 -159 >160LDL NEAR OP TIMAL IS 100-129 VLDL (test code = 25 mg/dL 5-40 N VLDL) LDL/HDL (test code = 3 LDLPHDL) Basic Metabolic [id number] 05:47:00 Test Item Value Reference Range Interpretation [...] the National Kidney Foundation,http ://nkd ep.nih.gov Magnesium, [id number] 05:47:00 Test Item Value Reference Range Interpretation Comments Magnesium (test code = MG) 2.3 mg/dL 1.7-2.5 N CBC with [id number] 05:36:00 Test Item Value Reference Range Interpretation [...] code = ALYMPH) 2.2 K/cumm 0.5-4.6 N [place] Abs (test code = AMONO) 0.3 K/cumm 0.0-1.2 N Eos Abs (test code = AEOS) 0.24 K/cumm 0.00-0.74 N Baso Abs (test code = ABASO) 0.0 K/cumm 0.00-0.21 N Partial Thromboplastin [id number] 21:26:00 Test Item Value Reference Range Interpretation Comments aPTT (test code = PTT) 29.00 seconds 24.39-37.25 N Prothrombin [id number] 21:26:00 Test Item Value Reference Range Interpretation Comments PT (test code = PT) 10.70 seconds 9.78-13.35 N INR (test code = INR) 0.95 Ratio 0.6-1.2 N Comprehensive Metabolic [id number] 21:23:00 Test Item Value Reference Range Interpretation [...] National Kidney Foundation,http ://nkd ep.nih.gov CBC with [id number] 21:16:00 Test Item Value Reference Range Interpretation [...] code = ALYMPH) 2.2 K/cumm 0.5-4.6 N [place] Abs (test code = AMONO) 0.4 K/cumm 0.0-1.2 N Eos Abs (test code = AEOS) 0.17 K/cumm 0.00-0.74 N Baso Abs (test code = ABASO) 0.1 K/cumm 0.00-0.21 N
--- NOTE | 2022-05-28 19:23 | RAD REPORT ---
EXAM DESCRIPTION: RAD - Chest Single View - 05/28/2022 7:16 pm CLINICAL HISTORY: CHEST PAIN COMPARISON: Chest Single View dated 04/13/2022; Chest Single View dated 03/19/2022; Chest Single View dated 11/26/2021; Chest Single View dated 11/10/2021 FINDINGS: Lines: Pacemaker. Lungs: No evidence of edema or pneumonia. Pleural: No significant pleural effusions or pneumothorax. Cardiac: The heart size is within normal limits. Mediastinum: Within normal limits. Bones: No acute fractures. Other: None IMPRESSION: No acute cardiopulmonary disease.
[2022-05-28 19:49] LABS: Absolute Lymphocytes (CBC) 1.9 K/uL (0.7-4.9); Hematocrit 39.1 % (36.0-45.0); Lymphocytes % 25.1 % (15.3-44.8); MCV 84.9 fL (80-100)
[2022-05-28 20:11] LABS: BUN Blood Urea Nitrogen 14 mg/dL (7-18); Bicarbonate 27 mmol/L (21-32); Glomerular Filtration Rate 107 ml/min (=/>90); Glucose Level 118 mg/dL (74-106); NT PRO-BNP 23 pg/mL (<125); Sodium Level 140 mmol/L (136-145)
[2022-05-28] MEDS ORDERED: ONDANSETRON 4 MG/2 ML VIAL ONE (20:28)
[2022-05-28] MEDS ORDERED: HYDROMORPHONE HCL 1 MG/ML INJ ONE (20:28)
[2022-05-28 20:45] LABS: Troponin High Sensitivity < 3.0 pg/mL (<58.9)
[2022-05-28] MEDS ORDERED: HYDROMORPHONE HCL 0.5 MG/0.5 ML INJ ONE (22:34)
--- NOTE | 2022-05-28 22:40 | EDPHYS ---
Physician Documentation [facility] Name: Jenni Draper Age: 41 yrs Sex: Female : 1980 Arrival Date: 05/28/2022 Time: 18:34 Bed 4 Private MD: Caio Polanco HPI: 05/28 19:40 This 41 yrs old Female presents to ER via Ambulatory with complaints of Chest taty Pain. 19:40 The patient or guardian reports chest pain that is located primarily in the substernal taty area, anterior chest wall. Onset: today. The pain radiates to the left arm. Associated signs and symptoms: The patient has no apparent associated signs or symptoms. The chest pain is described as a pressure. Duration: The patient or guardian reports multiple episodes, with no pattern. Severity of pain: At its worst the pain was mild in the emergency department the pain has resolved. The patient has experienced similar episodes in the past, multiple times. 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 LMP N/A - Hysterectomy bm7 Historical: - Allergies: 18:47 Adhesives; bm7 18:47 Aspirin; bm7 18:47 Bactrim; bm7 18:47 Benadryl; bm7 18:47 cefixime; bm7 18:47 Cipro IV; bm7 18:47 Clindamycin; bm7 18:47 coconut oil; bm7 18:47 Detrol; bm7 18:47 Diltiazem; bm7 18:47 Doxycycline; bm7 18:47 FISH PRODUCT DERIVATIVES; bm7 18:47 GABAPENTIN; bm7 18:47 Iodine; bm7 18:47 ivabradine; bm7 18:47 Latex, Natural Rubber; bm7 18:47 Morphine; bm7 18:47 PENICILLINS; bm7 18:47 Seroquel; bm7 18:47 Sulfa (Sulfonamide Antibiotics); bm7 18:47 tramadol; bm7 - Home Meds: 18:47 albuterol sulfate 2.5 mg /3 mL (0.083 %) Inhl nebu 3 mL 3 times per day [Active]; bm7 apixaban 5 mg Oral tab 1 tab 2 times per day [Active]; Lasix 20 mg Oral tab 1 tab [Active]; Crestor 5 mg Oral tab 1 tab once daily [Active]; Breo Ellipta inhalation [Active]; BuSpar Oral [Active]; carvedilol 25 mg Oral tab 1 tab 2 times per day [Active]; digoxin 125 mcg (0.125 mg) Oral tab 1 tab once daily [Active]; duloxetine 30 mg Oral CDRS 1 cap once daily [Active]; Keppra 750 mg Oral tab 1 tab [Active]; pantoprazole 20 mg Oral TbEC 1 tab once daily [Active]; Restasis 0.05 % ophthalmic (eye) dpet 1 drop every 12 hours [Active]; Spiriva with HandiHaler inhalation [Active]; Vraylar 4.5 mg Oral cap once daily [Active]; Xanax 0.25 mg Oral tab 1 tab [Active]; - PMHx: 18:47 Atrial fibrillation; Seizure; COPD; Anxiety; Bipolar disorder; CVA; bm7 - PSHx: 18:47 PACEMAKER; bm7 19:08 Hysterectomy; bm7 - Immunization history:: Adult Immunizations up to date, Client reports receiving the 2nd dose of the Covid vaccine, Client reports receiving the 1st dose of the Covid vaccine. - Social history:: Smoking status: Patient denies any tobacco usage or history of. - Family history:: not pertinent. ROS: 19:40 Constitutional: Negative for fever, chills, and weight loss, Eyes: Negative for injury, taty pain, redness, and discharge, ENT: Negative for injury, pain, and discharge, Neck: Negative for injury, pain, and swelling, Respiratory: Negative for shortness of breath, cough, wheezing, and pleuritic chest pain, Abdomen/GI: Negative for abdominal pain, nausea, vomiting, diarrhea, and constipation, Back: Negative for injury and pain, : Negative for injury, bleeding, discharge, and swelling, MS/Extremity: Negative for injury and deformity, Skin: Negative for injury, rash, and discoloration, Neuro: Negative for headache, weakness, numbness, tingling, and seizure, Psych: Negative for depression, anxiety, suicide ideation, homicidal ideation, and hallucinations, Allergy/Immunology: Negative for hives, rash, and allergies, Endocrine: Negative for neck swelling, polydipsia, polyuria, polyphagia, and marked weight changes, Hematologic/Lymphatic: Negative for swollen nodes, abnormal bleeding, and unusual bruising. 19:40 Cardiovascular: Positive for chest pain, of the chest. Exam: 19:40 Constitutional: This is a well developed, well nourished patient who is awake, alert, taty and in no acute distress. Head/Face: Normocephalic, atraumatic. Eyes: Pupils equal round and reactive to light, extra-ocular motions intact. Lids and lashes normal. Conjunctiva and sclera are non-icteric and not injected. Cornea within normal limits. Periorbital areas with no swelling, redness, or edema. ENT: Nares patent. No nasal discharge, no septal abnormalities noted. Tympanic membranes are normal and external auditory canals are clear. Oropharynx with no redness, swelling, or masses, exudates, or evidence of obstruction, uvula midline. Mucous membranes moist. Neck: Trachea midline, no thyromegaly or masses palpated, and no cervical lymphadenopathy. Supple, full range of motion without nuchal rigidity, or vertebral point tenderness. No Meningismus. Chest/axilla: Normal chest wall appearance and motion. Nontender with no deformity. No lesions are appreciated. Cardiovascular: Regular rate and rhythm with a normal S1 and S2. No gallops, murmurs, or rubs. Normal PMI, no JVD. No pulse deficits. Respiratory: Lungs have equal breath sounds bilaterally, clear to auscultation and percussion. No rales, rhonchi or wheezes noted. No increased work of breathing, no retractions or nasal flaring. Abdomen/GI: Soft, non-tender, with normal bowel sounds. No distension or tympany. No guarding or rebound. No evidence of tenderness throughout. Back: No spinal tenderness. No costovertebral tenderness. Full range of motion. Skin: Warm, dry with normal turgor. Normal color with no rashes, no lesions, and no evidence of cellulitis. MS/ Extremity: Pulses equal, no cyanosis. Neurovascular intact. Full, normal range of motion. Neuro: Awake and alert, GCS 15, oriented to person, place, time, and situation. Cranial nerves II-XII grossly intact. Motor strength 5/5 in all extremities. Sensory grossly intact. Cerebellar exam normal. Normal gait. Psych: Awake, alert, with orientation to person, place and time. Behavior, mood, and affect are within normal limits. 19:40 Musculoskeletal/extremity: DVT Exam: No signs of deep vein thrombosis. no pain, no swelling, no tenderness, negative Homans' sign noted on exam, no appreciated bluish discoloration, no erythema, no increased warmth. 19:50 ECG was reviewed by the Attending Physician. taty 22:20 ECG was reviewed by the Attending Physician. [facility] Vital Signs: 18:45 BP 112 / 83; Pulse 89; Resp 16; Temp 97.8(TE); Pulse Ox 100% on R/A; Weight 58.97 kg bm7 (R); Height 4 ft. 11 in. (149.86 cm); Pain 9/10; 20:54 Pain 5/10; ke1 21:10 BP 98 / 74; Pulse 73; Resp 18; Pulse Ox 98% on R/A; ke1 22:52 BP 101 / 71; Pulse 86; Resp 18; Pulse Ox 99% on R/A; Pain 0/10; ke1 22:53 Pain 0/10; ke1 18:45 Body Mass Index 26.26 (58.97 kg, 149.86 cm) bm7 MDM: 19:12 Patient medically screened. [facility] 19:43 Differential diagnosis: abnormal EKG, acute myocardial infarction, acute pericarditis, taty anxiety, chest wall pain, congestive heart failure hiatal hernia, myocarditis, pancreatitis, pneumonia, pulmonary embolus, stable angina, unstable angina. HEART Score: History: Slightly Suspicious (0), ECG: Normal (0), Age: < or = 45 years (0), Risk Factors: > or = 3 Risk factors for atherosclerotic disease (2), [Hypercholesterolemia] [Hypertension] [Active Smoker] [+ Family HX] Troponin: < or = 1 x Normal Limit (0). The patient was not given aspirin in the Emergency Department. Not indicated due to patient's past medical history. The patient's deep vein thrombosis risk score was calculated as follows: Total Score: 1 to 2 points. This patient was found to be at moderate risk for a deep vein thrombosis by using the Well's assessment criteria. The patient's pulmonary embolism risk score was calculated as follows: Total Score: 0-2 points. This patient was found to be at low risk for a pulmonary embolism by using the Well's assessment criteria. KENNETH Risk Score: 1 - Recent [<24hrs] Severe Angina, TOTAL SCORE = 1. Data reviewed: vital signs, nurses notes, lab test result(s), EKG, radiologic studies, plain films. Data interpreted: mathematics professor: rate is 89 beats/min, rhythm is regular, Pulse oximetry: on room air is 100 %. Test interpretation: by ED physician or midlevel provider: ECG, plain radiologic studies. Counseling: I had a detailed discussion with the patient and/or guardian regarding: the historical points, exam findings, and any diagnostic results supporting the discharge/admit diagnosis, the presence of at least one elevated blood pressure reading (>120/80) during this emergency department visit, lab results, radiology results, the need for outpatient follow up, for definitive care, a beef pusher, a family practitioner. 05/28 18:43 Order name: Basic Metabolic Panel; Complete Time: 21:02 [facility] 05/28 18:43 Order name: CBC with Diff; Complete Time: 20:40 [facility] 05/28 18:43 Order name: NT PRO-BNP; Complete Time: 21:02 [facility] 05/28 18:43 Order name: Troponin HS; Complete Time: 21:02 [facility] 05/28 19:17 Order name: Digoxin; Complete Time: 21:02 [facility] 05/28 20:40 Order name: Troponin High Sensitivity: 10pm; Complete Time: 22:39 [facility] 05/28 18:43 Order name: XRAY Chest (1 view); Complete Time: 20:40 [facility] 05/28 18:43 Order name: EKG; Complete Time: 18:44 [facility] 05/28 18:43 Order name: Cardiac monitoring; Complete Time: 19:08 kdr 05/28 22:09 Order name: EKG; Complete Time: 22:12 [facility] 05/28 18:43 Order name: EKG - Nurse/Tech; Complete Time: 19:08 [facility] 05/28 18:43 Order name: IV Saline Lock; Complete Time: 19:44 [facility] 05/28 18:43 Order name: Labs collected and sent; Complete Time: 19:35 kdr 05/28 18:43 Order name: O2 Per Protocol; Complete Time: 19:08 kdr 05/28 18:43 Order name: O2 Sat Monitoring; Complete Time: 19:08 kdr 05/28 22:09 Order name: EKG - Nurse/Tech; Complete Time: 22:20 taty EC:50 Rate is 90 beats/min. Rhythm is regular. QRS Oxbow is Normal. TN interval is normal. QRS taty interval is normal. QT interval is normal. No Q waves. T waves are Normal. No ST changes noted. Clinical impression: Normal ECG and No evidence of ischemia. Interpreted by me. Reviewed by me. 22:20 Rate is 75 beats/min. Rhythm is regular. QRS Oxbow is Normal. TN interval is normal. QRS taty interval is normal. QT interval is normal. No Q waves. T waves are Normal. No ST changes noted. Clinical impression: Normal ECG and No evidence of ischemia. Interpreted by me. Reviewed by me. Administered Medications: 20:24 Drug: Dilaudid (HYDROmorphone) 1 mg Route: IVP; Site: left hand; ke1 20:54 Follow up: Pain 5/10 Adult; Response: Pain is decreased ke1 20:24 Drug: Zofran (Ondansetron) 4 mg Route: IVP; Site: left hand; ke1 20:54 Follow up: Response: No adverse reaction ke1 21:10 Drug: Digoxin 0.25 mg Route: IVP; Site: left hand; ke1 22:53 Follow up: Response: No adverse reaction ke1 22:27 Drug: Dilaudid (HYDROmorphone) 0.5 mg Route: IVP; Site: left hand; tw5 22:53 Follow up: Pain 0/10 Adult; Response: Marked relief of symptoms; Pain is decreased ke1 Disposition Summary: 05/28/22 22:39 Discharge Ordered Location: Home taty Problem: new taty Symptoms: have improved taty Condition: Stable taty Diagnosis - Chest pain, unspecified taty Followup: taty - With: Private Physician - When: 2 - 3 days - Reason: Recheck today's complaints, Continuance of care, Re-evaluation by your physician Discharge Instructions: - Discharge Summary Sheet taty - Nonspecific Chest Pain, Adult taty - Nonspecific Chest Pain, Adult, [id number] taty Forms: - Thank You Letter taty - Medication Reconciliation Form taty - Antibiotic Education taty - Prescription Opioid Use taty Signatures: Dispatcher [employer] EDCaio Zhong MD MD cha Rittger, Kevin, MD MD kdr McCarthy, Brittany, RN RN jean7 Sherry Jaime tw5 Sanchez Christianson RN RN ke1 Corrections: (The following items were deleted from the chart) 18:50 18:47 Allergies: Hydrocodone-Acetaminophen; bm7 bm7
--- NOTE | 2022-05-28 22:40 | ER ---
Nurse's Notes [facility] Name: Jenni Draper Age: 41 yrs Sex: Female : 1980 Arrival Date: 05/28/2022 Time: 18:34 Bed 4 Private MD: Diagnosis: Chest pain, unspecified Presentation: 05/28 18:45 Chief complaint: Patient states: I started having chest pain around three hours ago and bm7 it hasn't gone away. Coronavirus screen: At this time, the client does not indicate any symptoms associated with coronavirus-19. Ebola Screen: No symptoms or risks identified at this time. Initial Sepsis Screen: Does the patient meet any 2 criteria? No. Patient's initial sepsis screen is negative. Does the patient have a suspected source of infection? No. Patient's initial sepsis screen is negative. Risk Assessment: Do you want to hurt yourself or someone else? Patient reports no desire to harm self or others. Onset of symptoms was May 28, 2022 at 15:30. 18:45 Method Of Arrival: Ambulatory [facility] 18:45 Acuity: LYUBOV 3 bm7 Triage Assessment: 18:47 General: Appears in no apparent distress. uncomfortable, Behavior is calm, cooperative, bm7 appropriate for age. Pain: Complains of pain in anterior aspect of left upper chest Pain does not radiate. EENT: No deficits noted. No signs and/or symptoms were reported regarding the EENT system. Neuro: No deficits noted. Cardiovascular: Chest pain is described as vague, quality is pressure, is located in left anterior chest wall. Respiratory: No deficits noted. Denies shortness of breath at rest, on exertion. GI: No deficits noted. No signs and/or symptoms were reported involving the gastrointestinal system. : No deficits noted. No signs and/or symptoms were reported regarding the genitourinary system. Derm: No deficits noted. No signs and/or symptoms reported regarding the dermatologic system. Musculoskeletal: No deficits noted. No signs and/or symptoms reported regarding the musculoskeletal system. 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 LMP N/A - Hysterectomy bm7 Historical: - Allergies: 18:47 Adhesives; bm7 18:47 Aspirin; bm7 18:47 Bactrim; bm7 18:47 Benadryl; bm7 18:47 cefixime; bm7 18:47 Cipro IV; bm7 18:47 Clindamycin; bm7 18:47 coconut oil; bm7 18:47 Detrol; 7 18:47 Diltiazem; bm7 18:47 Doxycycline; 7 18:47 FISH PRODUCT DERIVATIVES; bm7 18:47 GABAPENTIN; bm7 18:47 Iodine; bm7 18:47 ivabradine; bm7 18:47 Latex, Natural Rubber; 7 18:47 Morphine; bm7 18:47 PENICILLINS; bm7 18:47 Seroquel; bm7 18:47 Sulfa (Sulfonamide Antibiotics); bm7 18:47 tramadol; bm7 - Home Meds: 18:47 albuterol sulfate 2.5 mg /3 mL (0.083 %) Inhl nebu 3 mL 3 times per day [Active]; bm7 apixaban 5 mg Oral tab 1 tab 2 times per day [Active]; Lasix 20 mg Oral tab 1 tab [Active]; Crestor 5 mg Oral tab 1 tab once daily [Active]; Breo Ellipta inhalation [Active]; BuSpar Oral [Active]; carvedilol 25 mg Oral tab 1 tab 2 times per day [Active]; digoxin 125 mcg (0.125 mg) Oral tab 1 tab once daily [Active]; duloxetine 30 mg Oral CDRS 1 cap once daily [Active]; Keppra 750 mg Oral tab 1 tab [Active]; pantoprazole 20 mg Oral TbEC 1 tab once daily [Active]; Restasis 0.05 % ophthalmic (eye) dpet 1 drop every 12 hours [Active]; Spiriva with HandiHaler inhalation [Active]; Vraylar 4.5 mg Oral cap once daily [Active]; Xanax 0.25 mg Oral tab 1 tab [Active]; - PMHx: 18:47 Atrial fibrillation; Seizure; COPD; Anxiety; Bipolar disorder; CVA; bm7 - PSHx: 18:47 PACEMAKER; bm7 19:08 Hysterectomy; bm7 - Immunization history:: Adult Immunizations up to date, Client reports receiving the 2nd dose of the Covid vaccine, Client reports receiving the 1st dose of the Covid vaccine. - Social history:: Smoking status: Patient denies any tobacco usage or history of. - Family history:: not pertinent. Screenin:15 Abuse screen: Denies threats or abuse. Nutritional screening: No deficits noted. ke1 Tuberculosis screening: No symptoms or risk factors identified. Fall Risk None identified. Assessment: 19:10 Pain: Pain began 3 hours ago. ke1 20:22 Pain: Complains of pain in chest Pain radiates to left arm Pain currently is 10 out of ke1 10 on a pain scale. Quality of pain is described as stabbing, Alleviated by rest, Aggravated by increased activity, Also complains of labile emotions, Current management is with Morphine, Goal of pain control is to be pain free. Vital Signs: 18:45 BP 112 / 83; Pulse 89; Resp 16; Temp 97.8(TE); Pulse Ox 100% on R/A; Weight 58.97 kg bm7 (R); Height 4 ft. 11 in. (149.86 cm); Pain 9/10; 20:54 Pain 5/10; ke1 21:10 BP 98 / 74; Pulse 73; Resp 18; Pulse Ox 98% on R/A; ke1 22:52 BP 101 / 71; Pulse 86; Resp 18; Pulse Ox 99% on R/A; Pain 0/10; ke1 22:53 Pain 0/10; ke1 18:45 Body Mass Index 26.26 (58.97 kg, 149.86 cm) bm7 ED Course: 18:34 Patient arrived in ED. as 18:42 Kong Reyes MD is Attending Physician. kdr 18:47 Triage completed. bm7 18:47 Arm band placed on right wrist. bm7 19:08 EKG completed in triage. Results shown to MD. bm7 19:09 Sanchez Christianson, LAUREL is Primary Nurse. ke1 19:12 Caio Aceves MD is Attending Physician. [facility] 19:15 Bed in low position. Call light in reach. Side rails up X 1. Client placed on ke1 continuous cardiac and pulse oximetry monitoring. NIBP monitoring applied. monitor and storage bin tender on. Pulse ox on. NIBP on. 19:15 No provider procedures requiring assistance completed. Patient maintains SpO2 ke1 saturation greater than 95% on room air. 19:18 XRAY Chest (1 view) In Process Unspecified. EDMS 19:35 Initial lab(s) drawn, by me, sent to lab. Missed attempt(s): 22 gauge in left hand. tw5 Bleeding controlled, band aid applied, catheter tip intact. 19:44 Inserted saline lock: 24 gauge in left hand, using aseptic technique. tw5 19:44 Basic Metabolic Panel Sent. tw5 19:44 CBC with Diff Sent. tw5 19:44 NT PRO-BNP Sent. tw5 19:44 Troponin HS Sent. tw5 19:44 Digoxin Sent. tw5 22:02 Troponin High Sensitivity: 10pm Sent. kl 22:23 Troponin High Sensitivity: 10pm Sent. tw5 22:53 IV discontinued. ke1 Administered Medications: 20:24 Drug: Dilaudid (HYDROmorphone) 1 mg Route: IVP; Site: left hand; ke1 20:54 Follow up: Pain 5/10 Adult; Response: Pain is decreased ke1 20:24 Drug: Zofran (Ondansetron) 4 mg Route: IVP; Site: left hand; ke1 20:54 Follow up: Response: No adverse reaction ke1 21:10 Drug: Digoxin 0.25 mg Route: IVP; Site: left hand; ke1 22:53 Follow up: Response: No adverse reaction ke1 22:27 Drug: Dilaudid (HYDROmorphone) 0.5 mg Route: IVP; Site: left hand; tw5 22:53 Follow up: Pain 0/10 Adult; Response: Marked relief of symptoms; Pain is decreased ke1 Medication: 22:55 VIS not applicable for this client. ke1 Outcome: 22:39 Discharge ordered by . taty 22:53 Discharged to home ambulatory. ke1 22:53 Condition: good 22:53 Discharge instructions given to patient. 22:55 Patient left the ED. ke1 Signatures: Dispatcher [employer] EDMarcela Murphy RN RN kl Anderson, Corey, MD MD cha Rittger, Kevin, MD MD kdr Martinez, Amelia as McCarthy, Brittany, Sherry Funez RN tw5 Sanchez Christianson RN RN ke1 Corrections: (The following items were deleted from the chart) 18:50 18:47 Allergies: Hydrocodone-Acetaminophen; bm7 bmMartha 22:55 22:54 Pain: Pain began ke1 ke1
[2022-05-28 23:51] VITALS: TEMP 97.8
[2022-05-29 00:33] VITALS: BP 98/74; O2SAT 98
--- NOTE | 2022-05-30 11:33 | EKG ---
Test Date: 2022-05-28 Test Time: 22:20:59 Shipping Receiving Manager: NICOLE MEASUREMENT RESULTS: Intervals: Rate: 75 SD: 186 QRSD: 90 QT: 382 QTc: 426 [place]: P: 35 SD: 186 QRS: 20 T: 40 INTERPRETIVE STATEMENTS: Normal sinus rhythm Normal ECG Compared to ECG 05/28/2022 19:01:50 No significant changes Electronically Signed On 05-30-22 11:32:34 CDT by Nadeem Rajan
--- NOTE | 2022-05-30 11:33 | EKG ---
Test Date: 2022-05-28 Test Time: 19:01:50 Tree Shear Operator: SHERICE MEASUREMENT RESULTS: Intervals: Rate: 90 [place]: 136 QRSD: 86 QT: 362 QTc: 442 [place]: P: 53 [place]: 136 QRS: 28 T: 41 INTERPRETIVE STATEMENTS: Normal sinus rhythm Normal ECG Compared to ECG 04/13/2022 11:41:25 No significant changes Electronically Signed On 05-30-22 11:32:36 CDT by Nadeem Rajan
== END 2022-05-28 22:55 | disposition home or self-care (01) ==
LOC: ER 18:32
DX: R07.89 Other chest pain (principal); J44.9 Chronic obstructive pulmonary disease, unspecified; I48.91 Unspecified atrial fibrillation; F31.9 Bipolar disorder, unspecified; Z95.0 Presence of cardiac pacemaker; Z88.0 Allergy status to penicillin; Z88.1 Allergy status to other antibiotic agents; Z88.2 Allergy status to sulfonamides; Z88.3 Allergy status to other anti-infective agents; Z88.5 Allergy status to narcotic agent; Z88.6 Allergy status to analgesic agent; Z88.8 Allergy status to other drugs, medicaments and biological substances; Z91.013 Allergy to seafood; Z91.018 Allergy to other foods; Z91.048 Other nonmedicinal substance allergy status
CPT/HCPCS: 93005 ×2; 85025; 80048; 36415; 80162; 84484 ×2; 83880; 71045; 96375; 96374; 99285; J1170 ×2; J2405

== ENCOUNTER 2022-06-01 10:38 | Emergency (ER) | payer OTHER ==
--- OUTSIDE RECORDS SUMMARY | 2022-06-01 10:47 | XMS REPORT | Continuity of Care Document ---
:[address] [facility] t Address [address] [place] [address] Support Name Relationship Address Phone LINUS RIVERA [address] [phone] [place] [address] JET MARTY P [address] [facility] [place] [address] [phone] [place] [address] LINUS RIVERA Unavailable [phone] Isatu Rivera Mother [address] [place] [address] JetAngeln Child Unavailable Marty Bob Significant Other [address] [place] [address] Marty Bob Significant Other [address] [place] [address] KIMBERLEE LARSEN, AUREA Waters Emergency Provider [address] [facility] [address] [place] [address] CAROLINE LARSEN, SILVERIO Primary Care Physician [address] [facility] [address] [place] [address] BRENDAN LINDQUIST MD Emergency Provider [address] [place] [address] MD SILVERIO VELAZQUEZ Primary Care Physician [address] [facility] [place] [address] MD DARCIE KUMARI Admitting Provider [address] [place] [address] MD BAILEY HART Emergency Provider [address] [phone] [place] [address] Korin Chaudhary Spouse Unavailable Elie Bauer Unavailable / [phone] MARTY CHAUDHARY Unavailable [address] [place] [address] MARTY CHAUDHARY SONTAG Significant [address] Unavailable [place] [phone] Care Team Providers Name Role Phone SILVERIO VELAZQUEZ MIMA Primary Care Physician Unavailable WILMER VERA Attending Clinician Unavailable Linus Boone Attending Clinician Unavailable Andrey Benito Attending Clinician ANDREY TELLES Attending Clinician Unavailable Ernst Hollins MD, Nurys Attending Clinician Tucker Guy DO Attending Clinician FLOR Attending Clinician Unavailable Doctor Unassigned, [place] Attending Clinician Unavailable Ann Salcido MA Attending [...] Expiration Source Date Date GENERIC MEDICAID HMO [id number] 2011 00:00:00 [facility] [id number] 2011 Met panda STAR+PLUS 00:00:00 Hospital [id number] 2010- PresentHMO SOLORIO [id number] 2018 [facility] MEDICAIDMEDICAID 00:00:00 Medical [id number] 018-Present Problems Condition Condition Condition Status Onset Resolution Last Treating Co mments Source Name Details Category Date Date Treatment Clinician Date Left-sided Left-sided Disease Active U nivers weakness weakness 7-23 ity of 00:00: [place] [facility] History of History of Disease Active U nivers DVT (deep DVT (deep 4-11 ity of vein vein 00:00: [place] thrombosis thrombosis 00 Me dical ) ) Branch Palpitatio Palpitatio Disease Active U nivers ns ns 4-11 ity of 00:00: [place] [facility] Elevated Elevated Disease Active Unive rs d-dimer d-dimer 7-01 ity of 00:00: [place] [facility] Left-sided Left-sided Disease Active [facility] 00 Center Received Received Disease [facility] plasminoge plasminoge [facility] [place] [facility] 00 Center activator activator (t-PA) (t-PA) less than less than 24 hours 24 hours prior to prior to arrival arrival Acute Acute Disease Active [facility] ischemic ischemic 5-20 [facility] stroke stroke 00:00: [facility] 00 Center Atypical Atypical Disease Active Unive rs chest pain chest pain 4-20 it y of 00:00: [place] [facility] Chest pain Chest pain Disease Active [facility] in adult in adult 4-20 [facility] 00:00: [facility] 00 [place] Inappropri Inappropri Disease Active 2019- U nivers [...] Active 2019- Univers 2-04 ity of 00:00: [place] 00 Medical Branch PVT PVT Disease Active 2019- Univers (paroxysma (paroxysma 2-04 it y of l l 00:00: [place] ventricula ventricula 00 [place] dical r r Branch tachycardi tachycardi a) a) Digoxin Digoxin Disease Active Univers toxicity toxicity 2-04 ity of 00:00: [place] 00 Medical Branch AN AN Disease Active 2018-09 Univers (dyspnea (dyspnea 2-01 ity of on on 00:00: [place] exertion) exertion) 00 [facility] Seizure Seizure Disease Active 2018-[address] disorder disorder 2- [facility] 00:[facility] 00 Center Mitral Mitral Disease Active Univers valve valve 8 ity of regurgitat regurgitat 00:[place] 00 Medical [place] Excessive Excessive Disease Active Uni vers anticoagul anticoagul 8- it y of ation ation 00:00: [place] 00 Medical Branch Deep vein Deep vein Disease Active Uni vers thrombosis thrombosis 8 it y of of lower of lower 00:00: [place] extremity extremity 00 [facility] Anxiety Anxiety Disease Active [facility] disorder disorder 8 [facility] 00[facility] Center Asthma Asthma Disease Active [facility] Center Paresthesi Paresthesi Disease Active 2017-[address] a of left a of left 10-17 [facility] arm and arm and 00:00: Medical leg leg 00 Center Dysphagia Dysphagia Disease Active 2017-09 Uni vers 1 ity of 00:00: [place] 00 Medical Branch Iron Iron Disease Active 2017-09 Overview: Univer s deficiency deficiency 0-19 Formattin ity of anemia, anemia, 00:00: g of this [place] unspecifie unspecifie 00 note Me dical d iron d iron might be Branch deficiency deficiency different anemia anemia from the type type original. Added automatic ally from request for surgery [id number] Abdominal Abdominal Disease Active 2017-09 Overview: Univers pain, pain, 0-19 Formattin ity of unspecifie unspecifie 00:00: g of this [place] d d 00 note Medical abdominal abdominal might be Br anch location location different from the original. Added automatic ally from request for surgery [id number] Nausea and Nausea and Disease Active 2017-09 Overview : Univers vomiting, vomiting, 0-19 Formattin i ty of intractabi intractabi 00:00: g of this [place] lity of lity of 00 note Medical vomiting vomiting might be Bran ch not not different specified, specified, from the unspecifie unspecifie original. d vomiting d vomiting Added type type automatic ally from request for surgery [id number] Non-cardia Non-cardia Disease Active U nivers c [...] Univers weight weight 2-31 ity of 00:00: [place] [facility] Hypothyroi Hypothyroi Disease Active 2012-09 Overview : Univers dism dism 2-31 Formattin ity of 00:00: g of this note Medical might be Branch different from the original. 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 A-fib A-fib Disease Active Methodi st [...] 1-04 [place] ng 00:00: d Products 00 [facility] iodine DA Active MO 2020-0 [facility] 1-04 [place] 00:[facility]: d 00 [facility] morphine DA Active SV 2020-0 [facility] 1-04 [place] 00:00: d 00 [facility] aspirin DA Active SV 2020-0 [facility] 1-04 [place] 00:00: d 00 [facility] cephalex DA Active SV 2020-0 [facility] in 1-04 [place] 00:00: d 00 [facility] cefixime DA Active MO 2020-0 [facility] 1-04 [place] 00:00: d 00 [facility] doxycycl DA Active SV 2020-0 [facility] ine 1-04 [place] 00:00: d 00 [facility] clindamy DA Active MO 2020-0 [facility] stephan 1-04 [place] 00:00: d 00 [facility] sulfamet DA Active MO 2020-0 [facility] hoxazole 1-04 [place] 00:00: d 00 [facility] trimetho DA Active MO 2020-0 [facility] prim 1-04 [place] 00:00: d 00 Medical Center ciproflo DA Active SV 2020-0 [facility] xacin 1-04 [place] 00:00: d 00 [facility] Center adhesive DA Active SV 2020-0 [facility] tape 1-04 [place] 00:00: d 00 [facility] tramadol DA Active SV 2021-0 [facility] 1-04 [place] 00:00: d 00 [facility] gabapent DA Active SV 202-0 [facility] [...] [facility] ne 09-28 [place] 00:00: d 00 [facility] coconut FA Active MO 1-0 [facility] - [place] 00:[facility]: d 00 Medical Center Penicill [...] Medical Center cephalex DA Active SV HIVES 1-0 [facility] in - [place] 00:00: d 00 [facility] Center cefixime DA Active [place] HIVES 1-0 [facility] -04 [place] 00:00: d 00 Medical Center doxycycl DA Active SV RASH 2020-0 [facility] ine - [place] 00:00: d 00 [facility] Center clindamy DA Active [place] RASH 1-0 [facility] stephan - [place] 00:00: d 00 [facility] Center sulfamet DA Active MO RASH 2020-0 [facility] hoxazole - [place] 00:00: d 00 [facility] Center trimetho DA Active MO RASH 2021-0 [facility] prim 1-04 [place] 00:00: d 00 Medical Center ciproflo DA Active SV HIVES [facility] xacin 1-04 [place] 00:00: d 00 Medical Center adhesive DA Active SV BLISTERS [facility] tape 1-04 [place] 00:00: d 00 Medical Center tramadol DA Active SV HIVES [facility] 1-04 [place] 00:00: d 00 Medical [place] gabapent DA Active SV RASH [facility] in 1-04 [place] 00:00: d 00 Medical Center diltiaze DA Active SV SHORTNESS OF HC A m BREATH 09-28 [place] 00:00: d Medical [place] diphenhy DA Active SV RASH [facility] dramine 09-28 [place] 00:00: d 00 [facility] topirama DA Active SV HIVES/MEMORY HC A te LOSS 09-28 [place] 00:00: d 00 [facility] levoflox DA Active SV HIVES [facility] acin 1-04 [place] 00:00: d 00 [facility] quetiapi DA Active MO RASH [facility] ne 1-04 [place] 00:00: d 00 Medical [place] tolterod DA Active MO RASH [facility] ine 1-04 [place] 00:00: d 00 [facility] latex DA Active SV BLISTERS [facility] 1-04 [place] 00:00: d 00 Medical Center ivabradi DA Active MO RASH [facility] ne 1-04 [place] 00:00: d 00 Medical [place] coconut FA Active MO RASH 2020- [facility] 1-04 [place] 00:00: d 00 Medical Center Topirama Propensi Active Anaphylaxis 2020-0 M ethodi te ty to 9-16 st [...] Of 2019-0 Methodi m ty to Breath 05 st adverse 00:00: Hospita reaction 00 l s to drug Cephalex Drug Active Anaphylaxis 2019-0 Uni vers in Allergy 805 ity of 00:00: [place] 00 Medical Branch Levoflox Drug Active Anaphylaxis 2018-0 Uni vers acin Allergy 805 ity of 00:00: [place] 00 Medical Branch CEPHALEX DRUG Active High Anaphylaxis 2018-0 Uni vers IN INGREDI 05 ity of 00:00: [place] 00 Medical Branch FISH Drug Active High Anaphylaxis 2019-0 Unive rs CONTAINI Class 805 ity of NG 00:00: [place] PRODUCTS 00 Medical Branch LEVOFLOX DRUG Active High Anaphylaxis 2019-0 Uni vers ACIN INGREDI 04-29 ity of 00:00: [place] 00 [...] Rash 2017-09 [facility] STEPHAN 10-17 00:00: 00 Latex Propensi Active Rash [...] Iodide adverse 00:00: Medical Containi reaction 00 [place] ng s Products Sulfamet Propensi Active Rash 2017-09 Method i hoxazole ty to 10-17 st -Trimeth adverse 00:00: Hospita oprim reaction 00 l s to drug TOLTEROD Allergy Active Low Rash 2017-09 [facility] INE 10-17 00:00: 00 Cefixime Propensi Active Rash 2017-09 Method i ty to 10-17 st adverse 00:00: Hospita reaction 00 l s to drug COCONUT DRUG Active Hives 2017-09 Univers INGREDI -10 ity of 00:00: [place] 00 Medical Branch Coconut Propensi Active Rash 2017-09 Univers ty to -10 ity of adverse 00:00: [place] reaction 00 Medical s Branch Other Propensi Active Swelling 2017-09 Family Method i ty to 10-[address] adverse 00:00: of Hospita reaction 00 allergic l s reaction. Coconut Propensi Active Rash 2017- Methodi ty to -10 st adverse 00:00: Hospita reaction 00 l s to drug Coconut Propensi Active Rash 2017-09 Methodi Oil ty to -10 st adverse 00:00: Hospita reaction 00 l [...] Products drug Diphenhy Propensi Active Other (See 2018-0 Me thodi dramine ty to Comments) 4-12 [...] Rash 2018-0 Method i stephan ty to [address] st adverse 00:00: Hospita reaction 00 l s to drug MORPHINE DRUG Active High Anaphylaxis 2016-09 [...] Medical s Branch CIPROFLO DRUG Active SOB 2016- Univers XACIN INGREDI 04-20 ity of 00:00: [...] to drug ALUMINUM DRUG Active High Anaphylaxis 20160 Uni vers ASPIRIN INGREDI 01-18 ity of 00:00: [place] 00 Medical Branch PENICILL DRUG Active High Anaphylaxis 20160 Uni vers IN INGREDI - ity of 00:00: [place] 00 [...] Date Stop Date Quantity Comments Source History [facility] Alcohol Std Drinks Hospit al History [facility] Exposure to 2022-05-14 2022-05-24 Not sure University of SARS-CoV-2 (event) 00:00:00 00:34:00 [facility] Cigarettes smoked 2022-04-05 2022-04-05 Univers ity of current (pack per 00:00:00 00:00:00 [facility] ) - Reported Branch Cigarette 2022-04-05 2022-04-05 University of pack-years 00:00:00 00:00:00 [facility] Tobacco use and 2022-04-05 2022-04-05 Smokeless Universit y of exposure 00:00:00 00:00:00 tobacco non-user [facility] dicid Branch Education 2021-03-25 2021-03-25 12 University of 00:00:00 00:00:00 [facility] Alcohol intake 2021-03-17 2021-03-17 Current [place] 00:00:00 00:00:00 non-drinker of Hospital alcohol (finding) History [facility] 2019-10-29 2019-10-29 5 University o f Financial 00:00:00 00:00:00 [place] [facility] History [facility] Food 2019-10-29 2019-10-29 1 Univers ity of Worry 00:00:00 00:00:00 [facility] [place] [facility] Branch History [facility] Food 2019-10-29 2019-10-29 1 Univers ity of Scarcity 00:00:00 00:00:00 [place] [facility] History [facility] 2019-10-29 2019-10-29 2 University o f Transport Med 00:00:00 00:00:00 [place] Medic al Branch History [facility] 2019-10-29 2019-10-29 2 University o f Transport Non-Med 00:00:00 00:00:00 [facility] edical Branch History [facility] 2018-09-05 2018-09-05 1 [facility] Alcohol Frequency 00:00:00 00:00:00 Hospita l History of tobacco 2001-05-09 Passive smoker Un iversity of use 00:00:00 [facility] Sex [birth year] At [birth year] [facility] 00:00:00 00:00:00 Hospital Smoking Status Start Date Stop Date Source Ex-smoker 2022-04-05 00:00:00 2022-04-05 00:00:00 Universi ty of [facility] Medications Ordered Filled Start Stop Current Ordering Indication Dosage Frequency Signature Comments Components Source Medication Medication Date Date Medication? Clinician (SIG) Name Name levETIRAcet Yes [id number] 1000mg Take 1 Univers am 1,000 mg 9-06 tablet by ity of tablet 00:00: mouth in [place] 00 the Medical morning Branch and 1 tablet in the evening. ubrogepant Yes [id number] 100mg Take 100 Univers (UBRELVY) 9-06 mg by ity of 100 mg Tab 00:00: mouth as [place] 00 needed Medical (migraine) Branch . Take at onset of migraine, repeat x1 in 2h if headache remains nortriptyli Yes [id number] 20mg Take 2 Univers ne 10 mg 9-06 capsules ity of capsule 00:00: by mouth [place] 00 at Medical bedtime. Branch rosuvastati Yes 10mg Take 10 mg Univers n (CRESTOR) 8-30 by mouth ity of 10 mg 09:52: at [place] tablet 35 bedtime. Medical Branch rosuvastati Yes 10mg Take 10 mg Univers n (CRESTOR) 8-30 by mouth ity of 10 mg 09:52: at [place] tablet 35 bedtime. Medical Branch rosuvastati Yes 10mg Take 10 mg Univers n (CRESTOR) 8-30 by mouth ity of 10 mg 09:52: at [place] tablet 35 bedtime. Medical Branch levETIRAcet Yes 750mg Take 1 Uni vers am 750 mg 8-30 tablet by ity o f tablet 00:00: mouth in [place] 00 the Medical morning. Branch levETIRAcet Yes 1000mg Take 1 Un [place] am 1,000 mg 8-30 tablet by ity of tablet 00:00: mouth in [place] 00 the Medical morning. Branch levETIRAcet 2021-0 Yes 750mg Take 1 Uni vers am 750 mg 8-30 tablet by ity o f tablet 00:00: mouth in [place] 00 the Medical morning. Branch levETIRAcet 2021-0 Yes 1000mg Take 1 Un [place] am 1,000 mg 8-30 tablet by ity of tablet 00:00: mouth in [place] 00 the Medical morning. Branch levETIRAcet 2021-0 2- No 750mg Take 1 Un [place] am 750 mg 8-30 -06 tablet by ity of tablet 00:00: 00:00 mouth in [place] 00 :00 the Medical morning. Branch levETIRAcet 2021-0 2021- No 1000mg Take 1 U nivers am 1,000 mg 8-30 05-31 tablet by it y of tablet 00:00: 00:00 mouth in [place] 00 :00 the Medical morning. Branch ALPRAZolam 2021-0 Yes [id number] .25mg Take 0.25 Univers 0.25 mg 8-12 mg by ity of tablet 13:33: mouth at [place] [address] bedtime as Medical needed. Branch pregabalin 2021-0 Yes 50mg Take 50 mg U nivers 50 mg 8-12 by mouth ity of capsule 13:33: at [place] [address] bedtime. Medical Branch ALPRAZolam 2021-0 Yes [id number] .25mg Take 0.25 Univers 0.25 mg 8-12 mg by ity of tablet 13:33: mouth at [place] [address] bedtime as Medical needed. Branch pregabalin 2021-0 Yes 50mg Take 50 mg U nivers 50 mg 8-12 by mouth ity of capsule 13:33: at [place] [address] bedtime. Medical Branch ALPRAZolam 2021-0 Yes [id number] .25mg Take 0.25 Univers 0.25 mg 8-12 mg by ity of tablet 13:33: mouth at [place] [address] bedtime as Medical needed. Branch pregabalin 2-0 Yes 50mg Take 50 mg U nivers 50 mg 8-12 by mouth ity of capsule 13:33: at [place] [address] bedtime. Medical Branch ALPRAZolam 2-0 Yes [id number] .25mg Take 0.25 Univers 0.25 mg 8-12 mg by ity of tablet 13:33: mouth at [place] [address] bedtime as Medical needed. Branch pregabalin 0 Yes 50mg Take 50 mg U nivers 50 mg 8-12 by mouth ity of capsule 13:33: at [place] [address] bedtime. Medical Branch tiotropium 0 Yes 1{puff} Inhale 1 Univers bromide 8-12 Puff ity of (SPIRIVA 00:00: daily. [place] RESPIMA) 00 Medical 2.5 Branch mcg/actuati on Mist tiotropium 0 Yes 1{puff} Inhale 1 Univers bromide 8-12 Puff ity of (SPIRIVA 00:00: daily. [place] RESPIMA) 00 Medical 2.5 Branch mcg/actuati on Mist tiotropium 0 Yes 1{puff} Inhale 1 Univers bromide 8-12 Puff ity of (SPIRIVA 00:00: daily. [place] RESPIMA) 00 Medical 2.5 Branch mcg/actuati on Mist tiotropium 0 Yes 1{puff} Inhale 1 Univers bromide 8-12 Puff ity of (SPIRIVA 00:00: daily. [place] RESPIMAT) 00 Medical 2.5 Branch mcg/actuati on Mist esomeprazol 0 Yes 20mg Take 20 mg Univers e 20 mg 7-25 by mouth 2 ity of capsule 18:00: (two) [place] 13 times Medical daily Branch before breakfast and dinner. esomeprazol 2021-0 Yes 20mg Take 20 mg Univers e 20 mg 7-25 by mouth 2 ity of capsule 18:00: (two) [place] 13 times Medical daily Branch before breakfast and dinner. esomeprazol 2021-0 Yes 20mg Take 20 mg Univers e 20 mg 7-25 by mouth 2 ity of capsule 18:00: (two) [place] 13 times Medical daily Branch before breakfast and dinner. esomeprazol 2021-0 Yes 20mg Take 20 mg Univers e 20 mg 7-25 by mouth 2 ity of capsule 18:00: (two) [place] 13 times Medical daily Branch before breakfast and dinner. roflumilast 2021-0 Yes [id number] 250ug Take 250 Univers (DALIRESP) 7-25 mcg by ity of 250 mcg Tab 00:00: mouth [place] 00 daily. Medical Branch carvediloL 2021-0 Yes [id number] 12.5mg Take 1 Univers 12.5 mg 7-25 tablet by ity of tablet 00:00: mouth in [place] 00 the Medical morning Branch and 1 tablet in the evening. Take with meals. levETIRAcet 2021-0 Yes [id number] 1250mg Take 5 Univers am 250 mg 7-25 tablets by ity of tablet 00:00: mouth in [place] 00 the Medical morning Branch and 5 tablets in the evening. roflumilast 2021-0 Yes [id number] 250ug Take 250 Univers (DALIRESP) 7-25 mcg by ity of 250 mcg Tab 00:00: mouth [place] 00 daily. [facility] Branch carvediloL 2021-0 Yes [id number] 12.5mg Take 1 Univers 12.5 mg 7-25 tablet by ity of tablet 00:00: mouth in [place] the Medical morning Branch and 1 tablet in the evening. Take with meals. levETIRAcet 2021-0 Yes [id number] 1250mg Take 5 Univers am 250 mg 7-25 tablets by ity of tablet 00:00: mouth in [place] the [facility] morning Branch and 5 tablets in the evening. roflumilast 2021-0 Yes [id number] 250ug Take 250 Univers (DALIRESP) 7-25 mcg by ity of 250 mcg Tab 00:00: mouth [place] 00 daily. Medical Branch carvediloL 2021-0 Yes [id number] 12.5mg Take 1 Univers 12.5 mg 7-25 tablet by ity of tablet 00:00: mouth in [place] 00 the [facility] morning Branch and 1 tablet in the evening. Take with meals. levETIRAcet 2021-0 Yes [id number] 1250mg Take 5 Univers am 250 mg 7-25 tablets by ity of tablet 00:00: mouth in [place] the [facility] morning Branch and 5 tablets in the evening. roflumilast 2021-0 Yes [id number] 250ug Take 250 Univers (DALIRESP) 7-25 mcg by ity of 250 mcg Tab 00:00: mouth [place] 00 daily. [facility] Branch carvediloL 2021-0 Yes [id number] 12.5mg Take 1 Univers 12.5 mg 7-25 tablet by ity of tablet 00:00: mouth in [place] the [facility] morning Branch and 1 tablet in the evening. Take with meals. levETIRAcet 2021- No [id number] 1250mg Take 5 Univers am 250 mg 7-25 09-06 tablets by ity of tablet 00:00: 00:00 mouth in [place] 00 :00 the Medical morning Branch and 5 tablets in the evening. atorvastati 2021- No [id number] 40mg Take 1 Univers n 40 mg 7-25 08-30 tablet by ity of tablet 00:00: 00:00 mouth at [place] 00 :00 bedtime. Medical Branch ubrogepant Yes [id number] 100mg Take 100 Univers (UBRELVY) 6-21 mg by ity of 100 mg Tab 00:00: mouth as [place] 00 needed Medical (migraine) Branch . Take at onset of migraine, repeat x1 in 2h if headache remains ubrogepant Yes [id number] 100mg Take 100 Univers (UBRELVY) 6-21 mg by ity of 100 mg Tab 00:00: mouth as [place] 00 needed Medical (migraine) Branch . Take at onset of migraine, repeat x1 in 2h if headache remains ubrogepant Yes [id number] 100mg Take 100 Univers (UBRELVY) 6-21 mg by ity of 100 mg Tab 00:00: mouth as [place] as 00 needed Medical (migraine) Branch . Take at onset of migraine, repeat x1 in 2h if headache remains ubrogepant 2021- No [id number] 100mg Take 100 Univers (UBRELVY) 6-21 09-06 mg by ity of 100 mg Tab 00:00: 00:00 mouth as [place] 00 :00 needed Medical (migraine) Branch . Take at onset of migraine, repeat x1 in 2h if headache remains fluticasone Yes [id number] 1{puff} Inhale 1 Univers furoate-natan 6-03 Puff ity of anteroL 00:00: daily. [place] (BREO 00 Medical ELLIPTA) Branch 200-25 mcg/dose DsDv DULoxetine Yes 30mg Take 1 Unive rs 30 mg 6-03 capsule by ity of capsule 00:00: mouth [place] 00 daily. Medical Branch traZODone 0 Yes 50mg Take 1-2 Univ ers 50 mg 6-03 tablets by ity of tablet 00:00: mouth at [place] 00 bedtime as Medical needed for Branch Insomnia. fluticasone 2021-0 Yes [id number] 1{puff} Inhale 1 Univers furoate-natan 6-03 Puff ity of anteroL 00:00: daily. [place] ([address]) Branch 200-25 mcg/dose DsDv DULoxetine 2021-0 Yes 30mg Take 1 Unive rs 30 mg 6-03 capsule by ity of capsule 00:00: mouth [place] 00 daily. Medical Branch traZODone 2021-0 Yes 50mg Take 1-2 Univ ers 50 mg 6-03 tablets by ity of tablet 00:00: mouth at [place] [address] bedtime as Medical needed for Branch Insomnia. fluticasone 2021-0 Yes [id number] 1{puff} Inhale 1 Univers furoate-natan 6-03 Puff ity of anteroL 00:00: daily. [place] ([address]) Branch 200-25 mcg/dose DsDv DULoxetine 2021-0 Yes 30mg Take 1 Unive rs 30 mg 6-03 capsule by ity of capsule 00:00: mouth [place] daily. Medical Branch traZODone 2021-0 Yes 50mg Take 1-2 Univ ers 50 mg 6-03 tablets by ity of tablet 00:00: mouth at [place] 00 bedtime as Medical needed for Branch Insomnia. fluticasone 2021-0 Yes [id number] 1{puff} Inhale 1 Univers furoate-natan 6-03 Puff ity of anteroL 00:00: daily. [place] ([address]) Branch 200-25 mcg/dose DsDv DULoxetine 2021-0 Yes 30mg Take 1 Unive rs 30 mg 6-03 capsule by ity of capsule 00:00: mouth [place] 00 daily. Medical Branch traZODone 2021-0 Yes 50mg Take 1-2 Univ ers 50 mg 6-03 tablets by ity of tablet 00:00: mouth at [place] 00 bedtime as Medical needed for Branch Insomnia. BENZONATATE 2021-0 Yes [id number] TAKE 1 Univers 100 mg 3-04 CAPSULE BY ity of capsule 00:00: MOUTH [place] 00 THREE Medical TIMES Branch DAILY NEEDED FOR COUGH BENZONATATE 2021-0 Yes [id number] TAKE 1 Univers 100 mg 3-04 CAPSULE BY ity of capsule 00:00: MOUTH [place] 00 THREE Medical TIMES Branch DAILY NEEDED FOR COUGH BENZONATATE Yes [id number] TAKE 1 Univers 100 mg 3-04 CAPSULE BY ity of capsule 00:00: MOUTH [place] 00 THREE Medical TIMES Branch DAILY NEEDED FOR COUGH BENZONATATE Yes [id number] TAKE 1 Univers 100 mg 3-04 CAPSULE [...] 00 needed. Medical Branch albuterol 2020-09 Yes [id number] 2{puff} Inhale 2 Univers 90 1-05 Puffs ity of mcg/actuati 00:00: every 6 [place] as on inhaler 00 (six) Medical hours as Branch needed for Wheezing or Shortness of Breath. albuterol 2020-09 Yes [id number] 2{puff} Inhale 2 Univers 90 1-05 Puffs ity of mcg/actuati 00:00: every 6 [place] as on inhaler 00 (six) Medical hours as Branch needed for Wheezing or Shortness of Breath. albuterol 2020-09 Yes [id number] 2{puff} Inhale 2 Univers 90 1-05 Puffs ity of mcg/actuati 00:00: every 6 [place] as on inhaler 00 (six) Medical hours as Branch needed for Wheezing or Shortness of Breath. albuterol 2020-09 Yes [id number] 2{puff} Inhale 2 Univers 90 1-05 Puffs [...] nightly as l needed for anxiety. carvediloL 2021-0 Yes 25mg Q.5D Take 25 mg M [...] l ophthalmic emulsion albuterol 0 Yes 1{ampul Q.57942759 Take 1 [facility] (ACCUNEB) 6-24 e} [id number] ampule by st 1.25 mg/3 22:52: 3D nebulizati Ho spita mL 44 on 3 l nebulizer (three) solution times a day. esomeprazol 0 202- No 20mg QD Take 20 mg [facility] (NexIUM) 6-24 06-[address] 20 MG 20:19: 00:00 daily Hospita capsule 48 :00 before l breakfast. benztropine 0 Yes 1mg Q.5D Take 1 [...] day. l ophthalmic emulsion albuterol Yes 1{ampul Q.[id number] Take 1 [facility] (ACCUNEB) 6-24 e} [id number] ampule by st 1.25 mg/3 17:52: 3D [...] day. l ophthalmic emulsion albuterol Yes 1{ampul Q.43029086 Take 1 [facility] (ACCUNEB) 6-24 e} [id number] ampule by st 1.25 mg/3 17:52: 3D [...] l ophthalmic emulsion albuterol 0 Yes 1{ampul Q.47664367 Take 1 [facility] (ACCUNEB) 6-24 e} [id number] ampule by st 1.25 mg/3 17:52: 3D [...] daily. Hospita tablet 25 :00 l fluticasone 2020-0 Yes QD Inhale 1 Me [...] 06-[address] (Medrol, 00:00: 04:59 directions Ho [...] 14:04: mouth Medical tablet 46 daily. Center venutfaxine Yes 150mg QD Take [address] (EFFEXOR-XR 5-21 [facility] ) 150 MG 24 14:04: mouth Medic al hr capsule 46 daily. [place] apixaban Yes 5mg QD Take [address] [facility] [address] (ELIQUIS) 5 5-21 by mouth Luke [facility] mg Tab 14:04: daily. Medical tablet 46 [place] levETIRAcet Yes 1000mg Q.5D Take 1,[address] [facility] [facility] am (KEPPRA) 5-21 mg [facility] 1000 MG 14:04: mouth 2 Medical tablet 46 (two) Center times daily. loratadine Yes 10mg QD Take [address] (CLARITIN) 5-21 by [facility] 10 mg 14:04: daily. Medical tablet 46 [place] pregabalin Yes 50mg QD Take [address] (LYRICA) 25 5-21 by mouth Luke s MG capsule 14:04: nightly . N[place] dical 46 [place] esomeprazol Yes 40mg QD Take 40 mg [...] by mouth [facility] MG tablet 14:04: nightly. [facility] blane 46 [place] carvediloL Yes 25mg Take [address] (COREG) 25 5-21 by mouth 2 Berta es MG tablet 14:04: (two) Medical 46 times Center daily with breakfast and dinner. cariprazine Yes 1.5mg QD Take 1.[address] (Vraylar) 5-21 mg [facility] 1.5 mg Cap 14:04: mouth Medica l 46 nightly. [place] ALPRAZolam Yes .25mg Take 0.25 C HI [...] MG 14:04: mouth Medical tablet 46 daily. [place] venlafaxine Yes 150mg QD Take [address] (EFFEXOR-XR 5-21 mg [facility] ) 150 MG 24 14:04: mouth Medic al hr capsule 46 daily. [place] apixaban Yes 5mg QD Take [address] [facility] [address] (ELIQUIS) 5 5-21 by mouth Luke s mg Tab 14:04: daily. Medical tablet 46 [place] levETIRAcet Yes 1000mg Q.5D Take 1,[address] am (KEPPRA) 5-21 mg [facility] 1000 MG 14:04: mouth 2 Medical tablet 46 (two) Center times daily. loratadine Yes 10mg QD Take [address] (CLARITIN) 5-21 by [facility] 10 mg 14:04: daily. Medical tablet 46 [place] pregabalin Yes 50mg QD Take [address] (LYRICA) 25 5-21 by mouth Luke s MG capsule 14:04: nightly . Nc dical 46 Center esomeprazol Yes 40mg QD [...] Cap 14:04: mouth Medica l 46 nightly. [place] ALPRAZolam Yes .25mg Take 0.25 C HI [...] MG 14:04: mouth Medical tablet 46 daily. [place] venlafaxine Yes 150mg QD Take [address] (EFFEXOR-XR 5-21 mg [facility] ) 150 MG 24 14:04: mouth Medic al hr capsule 46 daily. [place] apixaban Yes 5mg QD Take [address] [facility] [address] (ELIQUIS) 5 5-21 by mouth Luke s mg Tab 14:04: daily. Medical tablet 46 [place] levETIRAcet Yes 1000mg Q.5D Take 1,[address] am (KEPPRA) 5-21 mg [facility] 1000 MG 14:04: mouth 2 Medical tablet 46 (two) Center times daily. loratadine Yes 10mg QD Take [address] (CLARITIN) 5-21 by mouth [facility] 10 mg 14:04: daily. Medical tablet 46 [place] pregabalin 0 Yes 50mg QD Take [address] (LYRICA) 25 5-21 by mouth Luke s MG capsule 14:04: nightly . [place] dical 46 [place] esomeprazol Yes 40mg QD Take 40 mg [...] Cap 14:04: mouth Medica l 46 nightly. [place] ALPRAZolam Yes .25mg Take 0.25 C HI [...] MG 14:04: mouth Medical tablet 46 daily. [place] venlafaxine Yes 150mg QD Take [address] (EFFEXOR-XR 5-21 [facility] ) 150 MG 24 14:04: mouth Medic al hr capsule 46 daily. [place] apixaban Yes 5mg QD Take 5 mg [...] St (COGENTIN) 5-19 05-19 by mouth 3 Elfego kes 2 MG tablet 22:18: 00:00 (three) Me dical 40 :00 times Center daily as needed. benztropine 2020- No 1mg Take [address] [facility] [address] (COGENTIN) 5-19 05-19 by mouth Luke s 1 MG tablet 22:18: 00:00 daily as M edical 31 :00 needed. [place] ARIPiprazol No 5mg QD Take [address] e (ABILIFY) 5-19 05-19 by mouth Berta es 5 MG tablet 22:18: 00:00 nightly. M edical 03 :00 [place] ARIPiprazol 0 2020- No 10mg QD Take [address] e (ABILIFY) 02-10 by mouth Berta es 10 MG 22:17: 00:00 daily. Medical disintegrat 48 :00 Center ing tablet Immunizations Ordered Filled Immunization Date Status Comments Sour e Immunization Name Name SARS-COV-2 COVID-19 2021-02-08 Completed Unive rsity of MODERNA VACCINE 00:00:00 [facility] ical Branch SARS-COV-2 COVID-19 2021-02-08 Completed Unive rsity of MODERNA VACCINE 00:00:00 [facility] ical Branch SARS-COV-2 COVID-19 2021-02-08 Completed Unive rsity of MODERNA VACCINE 00:00:00 [facility] ical Branch SARS-COV-2 COVID-19 2021-02-08 Completed Unive rsity of MODERNA 12+ YRS 00:00:00 [facility] ical VACCINE Branch SARS-COV-2 COVID-19 2021-01-11 Completed Unive rsity of MODERNA VACCINE 00:00:00 [facility] ical Branch SARS-COV-2 COVID-19 2021-01-11 Completed Unive rsity of MODERNA VACCINE 00:00:00 [facility] ical Branch SARS-COV-2 COVID-19 2021-01-11 Completed Unive rsity of MODERNA VACCINE 00:00:00 [facility] ical Branch SARS-COV-2 COVID-19 2021-01-11 Completed Unive rsity of MODERNA 12+ YRS 00:00:[address] [facility] VACCINE Branch Influenza Virus 2020-08-13 Completed Universit y of Vaccine 00:00:00 [facility] Influenza Virus 2020-08-13 Completed Universit y of Vaccine 00:00:00 [facility] Influenza Virus 2020-08-13 Completed Universit y of Vaccine 00:00:00 [facility] Influenza Virus 2020-08-13 Completed Universit y of Vaccine 00:00:00 [facility] Pneumococcal 2017-06-23 Completed University o f Polysaccharide, 00:00:00 [facility] ica PPSV23 (PNEUMOVAX) Branch Pneumococcal 2017-06-23 Completed University o f Polysaccharide, 00:00:00 [place] [facility] ical PPSV23 (PNEUMOVAX) Branch Pneumococcal 2017-06-23 Completed University o f Polysaccharide, 00:00:00 [place] [facility] ical PPSV23 (PNEUMOVAX) Branch Pneumococcal 2017-06-23 Completed University o f Polysaccharide, 00:00:00 [place] [facility] ical PPSV23 (PNEUMOVAX) Branch Influenza High Dose 2015-11-16 Completed Unive rsity of 00:00:00 [facility] Pneumococcal 2015-11-16 Completed University o f Polysaccharide, 00:00:00 [place] [facility] ical PPSV23 (PNEUMOVAX) Branch Influenza High Dose 2015-11-16 Completed Unive rsity of 00:00:00 [facility] Pneumococcal 2015-11-16 Completed University o f Polysaccharide, 00:00:00 [place] [facility] ical PPSV23 (PNEUMOVAX) Branch Influenza High Dose 2015-11-16 Completed Unive rsity of 00:00:00 [facility] Pneumococcal 2015-11-16 Completed University o f Polysaccharide, 00:00:00 [place] [facility] ical PPSV23 (PNEUMOVAX) Branch Influenza High Dose 2015-11-16 Completed Unive rsity of 00:00:00 [facility] Pneumococcal 2015-11-16 Completed University o f Polysaccharide, 00:00:00 [place] [facility] ical PPSV23 (PNEUMOVAX) Branch Vital Signs Vital Name Observation Time Observation Value Comments Source HEIGHT 2021-02-10 21:00:00 149.9 cm WEIGHT 2021-02-10 21:00:00 59.467 kg HEIGHT 2021-02-10 21:00:00 149.9 cm WEIGHT 2021-02-10 21:00:00 59.467 kg Oxygen saturation in 2021-03-18 20:00:00 97 /min [facility] Arterial blood by Pulse oximetry Systolic blood 2021-03-18 17:24:48 132 mm[Hg] [facility] pressure Diastolic blood 2021-03-18 17:24:48 72 mm[Hg] [facility] pressure Heart rate 2021-03-18 17:24:48 96 /min [facility] Body temperature 2021-03-18 17:24:48 37 Ayaka [facility] Respiratory rate 2021-03-18 17:24:48 14 /min [facility] Body height 2021-03-18 01:37:00 149.9 cm [facility] Body weight 2021-03-18 00:09:00 58.968 kg [facility] BMI 2021-03-18 00:09:00 26.26 kg/m2 [facility] Systolic blood 2021-02-12 12:00:00 101 mm[Hg] [facility] Diastolic blood 2021-02-12 12:00:00 72 mm[Hg] [facility] Heart rate 2021-02-12 12:00:00 93 /min [facility] Respiratory rate 2021-02-12 12:00:00 18 /min [facility] Oxygen saturation in 2021-02-12 12:00:00 96 /min [facility] Arterial blood by Medical Ce nter Pulse oximetry Body temperature 2021-02-12 11:00:00 37.56 Ayaka [facility] Body height 2021-02-11 10:15:00 149.9 cm [facility] Body weight 2021-02-11 10:15:00 59.5 kg [facility] BMI 2021-02-11 10:15:00 26.48 kg/m2 [facility] Procedures Procedure Date / Time Performing Clinician Source Performed POC GLUCOSE 2021-03-18 17:31:00 Matt Berkowitz spital ECG 12-LEAD 2021-03-18 [facility] 2021-03-18 16:41:00 [facility] TTE COMPLETE, WO 2021-03-18 14:19:12 [facility] CONTRAST, W DOPPLER ([id number]) POC GLUCOSE 2021-03-18 13:14:00 [facility] HC COMPLETE BLD COUNT 2021-03-18 10:00:00 [facility] W/AUTO DIFF COMPREHENSIVE METABOLIC 2021-03-18 10:00:00 [facility] PANEL MAGNESIUM LEVEL 2021-03-18 10:00:00 [facility] PHOSPHORUS LEVEL 2021-03-18 10:00:00 [facility] LIPID PANEL 2021-03-18 10:00:00 [facility], [facility] HEMOGLOBIN A1C 2021-03-18 10:00:00 [facility], [facility] ESTIMATED GFR 2021-03-18 10:00:00 [facility] URINE CULTURE 2021-03-18 06:12:00 [facility], [facility] LEGIONELLA URINARY 2021-03-18 05:36:00 [facility], [facility] ANTIGEN STREPTOCOCCUS PNEUMONIAE 2021-03-18 05:36:00 [facility], [facility] URINARY ANTIGEN URINALYSIS SCREEN AND 2021-03-18 05:36:00 Lae, [facility] MICROSCOPY, WITH REFLEX TO CULTURE BLOOD CULTURE, AEROBIC & 2021-03-18 04:35:00 [facility], [facility] ANAEROBIC BLOOD CULTURE, AEROBIC & 2021-03-18 04:25:00 [facility], [facility] ANAEROBIC DIGOXIN LEVEL 2021-03-18 04:24:00 Lae, [facility] TROPONIN 2021-03-18 04:24:00 [facility] LACTIC ACID LEVEL, SEPSIS 2021-03-18 04:24:00 [facility], [facility] - NOW AND REPEAT 2X EVERY 3 HOURS POC GLUCOSE 2021-03-18 01:38:00 [facility] ARTERIAL BLOOD GAS 2021-03-18 01:10:00 [facility], [facility] US DUPLEX VENOUS LOWER 2021-03-18 01:00:06 [facility], [facility] EXTREMITY BILATERAL LACTIC ACID LEVEL, SEPSIS 2021-03-17 23:47:00 Lae, [facility] - NOW AND REPEAT 2X EVERY 3 HOURS TROPONIN 2021-03-17 23:47:00 [facility], [facility] XR CHEST 1 VW PORTABLE 2021-03-17 21:20:18 Hector Alvarez [facility] HC COMPLETE BLD COUNT 2021-03-17 21:05:[address] [facility] [place] [place] W/AUTO DIFF LACTIC ACID LEVEL, SEPSIS 2021-03-17 21:05:00 [facility] - NOW AND REPEAT 2X EVERY 3 HOURS COMPREHENSIVE METABOLIC 2021-03-17 21:05:00 [facility] Hector Ochoa [facility] PANEL TROPONIN 2021-03-17 21:05:00 [facility] B NATRIURETIC PEPTIDE 2021-03-17 21:05:[address] [facility] [place] D-DIMER 2021-03-17 21:05:00 [facility] ESTIMATED GFR 2021-03-17 21:05:00 [facility] ECG ED PRELIMINARY 2021-03-17 20:36:46 [facility] INTERPRETATION ECG 12-LEAD 2021-03-17 20:19:38 [facility] BASIC METABOLIC PANEL (7) 2021-02-12 05:34:00 Johan [facility] MAGNESIUM 2021-02-12 05:34:00 [facility] PHOSPHORUS 2021-02-12 05:34:00 Heu[place]ton [facility] CBC W/PLT COUNT & AUTO 2021-02-12 04:48:[address] [facility] MR BRAIN WITHOUT IV 2021-02-11 16:08:00 Igor Chew [facility] MRA HEAD WITHOUT IV 2021-02-11 16:07:00 Naina Igor [facility] MRA NECK WITHOUT IV 2021-02-11 16:07:00 Naina [facility] RAPID DRUG SCREEN, URINE 2021-02-11 03:05:00 Johan [facility] URINALYSIS WITH 2021-02-11 03:05:00 Johan [facility] MICROSCOPIC IF INDICATED [facility] URINALYSIS MICROSCOPIC 2021-02-11 03:05:[address]ison [address] [facility] HOMOCYSTEINE 2021-02-11 02:46:00 [facility] RPR 2021-02-11 02:46:00 [facility] TSH/FREE T4 IF INDICATED 2021-02-11 02:46:00 [facility] VITAMIN B12 AND FOLATE 2021-02-11 02:46:00 [facility] CBC W/PLT COUNT & AUTO 2021-02-11 02:46:[address] [facility] BASIC METABOLIC PANEL (7) 2021-02-11 02:46:00 [facility] MAGNESIUM 2021-02-11 02:46:00 [facility] PHOSPHORUS 2021-02-11 02:46:00 [facility] C-REACTIVE PROTEIN 2021-02-11 02:46:00 [facility] DIGOXIN LEVEL 2021-02-11 02:46:00 [facility] XR CHEST 1 VIEW PORTABLE 2021-02-10 22:20:00 [facility] / BEDSIDE [facility] POCT-GLUCOSE METER 2021-02-10 21:28:00 Wilmer [facility] LIPID PANEL 2021-02-10 21:22:00 [facility] CREATINE KINASE (CK) 2021-02-10 21:21:00 [facility] HEMOGLOBIN A1C 2021-02-10 21:21:00 [facility] CBC W/PLT COUNT & AUTO 2021-02-10 21:21:00 [facility] COMPREHENSIVE METABOLIC 2021-02-10 21:21:00 HeuveltonAlison [facility] PROTHROMBIN TIME/INR 2021-02-10 21:21:00 [facility] APTT 2021-02-10 21:21:00 [facility] MAGNESIUM 2021-02-10 21:21:00 Johan [facility] PHOSPHORUS 2021-02-10 21:21:00 Johan [facility] HIGH SENSITIVITY TROPONIN 2021-02-10 21:21:00 Johan [facility] I [facility] B-TYPE NATRIURETIC FACTOR 2021-02-10 21:21:00 [facility] (BNP) [facility] LACTIC ACID, VENOUS 2021-02-10 21:21:00 Johan [facility] S [facility] ARRYTHMIA IMPLANT REPORT 2021-02-10 00:00:00 Provider, Default C [facility] Plan of Care Planned Activity Planned Date Details Comments Source Future Scheduled 2022-06-01 HEPATITIS B VACCINES Met [facility] Test 10:41:01 (1 of 3 - 3-dose series) [code = HEPATITIS B VACCINES (1 of 3 - 3-dose series)] Future Scheduled 2022-06-01 Screening for [facility] Test 10:41:01 malignant neoplasm of cervix (procedure) [code = 996695287] Future Scheduled 2022-06-01 BREAST CANCER [facility] Test 10:41:01 SCREENING [code = BREAST CANCER SCREENING] Future Scheduled 2022-06-01 COVID-19 VACCINE (3 - [facility] Test 10:41:01 Booster for Moderna series) [code = COVID-19 VACCINE (3 - Booster for Moderna series)] Future Scheduled 2022-06-01 INFLUENZA VACCINE Method [facility] Test 10:41:01 [code = INFLUENZA VACCINE] Future Scheduled 2022-05-27 HEPATITIS B VACCINES Met [facility] Test 14:45:07 (1 of 3 - 3-dose series) [code = HEPATITIS B VACCINES (1 of 3 - 3-dose series)] Future Scheduled 2022-05-27 Screening for [facility] Test 14:45:07 malignant neoplasm of cervix (procedure) [code = 874962782] Future Scheduled 2022-05-27 BREAST CANCER [facility] Test 14:45:07 SCREENING [code = BREAST CANCER SCREENING] Future Scheduled 2022-05-27 COVID-19 VACCINE (3 - [facility] Test 14:45:07 Booster for Moderna series) [code = COVID-19 VACCINE (3 - Booster for Moderna series)] Future Scheduled 2022-05-27 INFLUENZA VACCINE Method [facility] Test 14:45:07 [code = INFLUENZA [...] Future Scheduled 2022-05-19 HEPATITIS B VACCINES Met [facility] Test 06:25:27 (1 of 3 - 3-dose series) [code = HEPATITIS B VACCINES (1 of 3 - 3-dose series)] Future Scheduled 2022-05-19 Screening for [facility] Test 06:25:27 malignant neoplasm of cervix (procedure) [code = 650621058] Future Scheduled 2022-05-19 BREAST CANCER [facility] Test 06:25:27 SCREENING [code = BREAST CANCER SCREENING] Future Scheduled 2022-05-19 COVID-19 VACCINE (3 - [facility] Test 06:25:27 Booster for Moderna series) [code = COVID-19 VACCINE (3 - Booster for Moderna series)] Future Scheduled 2022-05-19 INFLUENZA VACCINE Method [facility] Test 06:25:27 [code = INFLUENZA [...] [facility] Test 00:[facility]:00 [facility]oster for [facility] series) [code = COVID-19 VACCINE [...] Medica l Center cervix (procedure) [code = 857036728] Future Scheduled [address] [facility] Test 00:00:00 malignant neoplasm of Medica l Center cervix (procedure) [code = 991032064] Future Scheduled [address] [facility] Test 00:00:00 malignant neoplasm of Medica l Center cervix (procedure) [code = 045004448] Future Scheduled [address] [facility] Test 00:00:00 malignant neoplasm of Medica l Center cervix (procedure) [code = 950116258] Future Scheduled 2000 DTAP/TDAP/TD VACCINES CH I [...] Medical Center SCREENING] Future Scheduled Screening for [facility] Test malignant neoplasm of cervix (procedure) [code = 327868157] Future Scheduled INFLUENZA VACCINE [facility] Test [code = INFLUENZA VACCINE] Encounters Start End Encounter Admission Attending Care Care Encounter Source Date/Time Date/Time Type Type Clinicians Facility Department ID 2021-02-10 Inpatient ER BERSHAD, [facility] Neurology [id number] [facility] 20:21:00 WILMER 2020-09-29 Inpatient Mely, [facility] ENDO [id number] [facility] 10:15:00 Linus [id number] [facility] 2020-09-28 Inpatient EL Mely, [facility] ENDO [id number] [facility] 12:00:00 Linus [id number] [facility] 2022-05-31 2022-05-31 Telemedici Andrey Telles [facility] [id number] Univers 11:30:00 12:00:00 [facility] [id number] [place] [id number] [address] OFFICE [facility] 2022-05-31 2022-05-31 Outpatient R ANDREY TELLES [facility] [id number] Univers 11:30:00 11:30:00 ANDREY TELLES [id number] it y of [facility] 2022-05-31 2022-05-31 Outpatient R ELFEGOANDREY [facility] [id number] Univers 11:30:00 11:30:00 ANDREY TELLES it y of [facility] 2022-05-26 2022-05-26 Outpatient R ANDREY TELLES [facility] [id number] Univers 10:00:00 10:00:00 ANDREY TELLES [id number] it y [facility] 2022-05-24 2022-05-24 Telephone [facility] [id number] Univers 00:00:00 00:00:00 [facility] [id number] [place] [id number] [address] OFFICE [facility] 2022-05-24 2022-05-24 Telephone [facility] [id number] Univers 00:00:00 00:00:00 [facility] [id number] i [place] [id number] [address] OFFICE [facility] 2022-05-19 2022-05-19 Telephone [facility] [id number] Univers 00:00:00 00:00:00 Tucker ONTIVEROS [id number] i ty of [place] [id number] N[place] rakelal [facility] 2022-04-07 2022-04-07 Outpatient PATEL_JAZMYNE [facility] [id number] [id number] [place] 08:14:00 08:14:00 H 0714 da [facility] 2021-05-12 2021-05-12 Orders Doctor NUNO [id number] 00:00:00 00:00:00 Only Unassigned, PINKY 350.1.13.10 [facility] 4.2.7.2.686 [id number] 2021-04-29 2021-04-29 Office NAKUL Guy [id number] 12:33:16 13:56:43 Visit Deloresfransisco [place] 350.1.13.10 [place] 4.2.7.2.686 Profleonard [id number] nal 085 [facility] 2021-04-28 2021-04-28 Orders DANITA Guy [id number] 00:00:00 00:00:00 Only Tucker [facility] [id number] CLINICS 4.2.7.2.686 [id number] 2021-03-19 2021-03-19 Patient Omari, 1.2.840.1 [id number] Methodi 00:00:00 00:00:00 Outreach Ann 43060.1.[address] 3.430.2.7 Hospit a .3.961678 l .8 2021-03-17 2021-03-18 Emergency Antonio Hector T. 1.2.840.1 [id number] Methodi 14:59:00 17:52:00 Veda Bolanos 91824.1.[address] Matt Berkowitz 3.430.2.7 Hospita .3.460427 l .8 2021-03-17 2021-03-17 Travel 1.2.840.1 [id number] Methodi 00:00:00 00:00:[address] 3.430.2.7 0.2.7.3.698 Ho spita .3.128074 084.8 l .8 2017-09-06 2017-09-08 [facility] [id number] 10:12:00 02:32:00 [facility] Results Test Description Test Time Test [...] 15:19,-No significant change was found- [facility] [id number] 12:41:23 Test Item Value Reference Range Interpretation Comments Urine culture isolate Mixed alok <=10-3 (test code = 99251-2) col/cc [facility] Complete, (w Contrast, Strain and 3D if needed)2021-03-18 23:04:52 Test Item Value Reference Range Interpretation Comments Ao Root Diameter (test code = 2.73 cm 0122012636) AoV Area, Vmax (test code = 2.24 cm2 4294449679) AoV Area, VTI (test code = 2.25 cm2 8127340036) AoV Mean PG (test code = mmHg 4177998997) AoV Peak PG (test code = mmHg 8259861544) AoV Vmax (test code = 0003138794) 1.46 m/s AoV VTI (test code = 3081109354) 0.28 m IVS,d (test code = 9742503778) 0.72 cm IVS/LVPW,2D (test code = 2655892880) Left Atrium Dimension Anterior 2.68 cm (test code = 1347745102) LV,d (test code = 8874156774) 3.69 cm LV EF,2D (test code = 5186781085) 79.68 % LV,s (test code = 7563859334) 2.17 cm LVOT area (test code = 6749247654) 2.75 cm2 LVOT Diam,S (test code = 1.87 cm 9785407833) LVOT Vmax (test code = 6811876382) 1.18 m/s LVOT VTI (test code = 3029643100) 0.23 m LVPWD,d (test code = 3147935533) 0.65 cm PV Pk Grad (test code = 4671232186) mmHg PV VMAX (test code = 3261408090) 0.84 m/s RVOT Vmax (test code = 7891586358) 0.85 m/s RVSP (TR) (test code = 5187957988) mmHg TR Vpeak (test code = 3008549085) 2.86 mm/s MV E A ratio (test code = 1575778725) RA pressure (test code = mmHg 2321085857) TR pk grad (test code = 3966502829) mmHg MR Vmax (test code = 5235976253) 5.49 m/s E wave decelartion time (test code msec = 1421751297) MV Peak A Alf (test code = 0.76 m/s 0811702042) MV valve area p 1/2 method (test 3.26 cm2 code = 6333697740) MV Peak E Alf (test code = 0.92 m/s 0141775956) MV stenosis pressure 1/2 time (test 67.54 ms code = 8846370725) LVOT stroke volume (test code = 0.63 cm3 4274391659) AV LVOT peak gradient (test code = mmHg 1974336388) RVSP (test code = 0297621780) mmHg Ao Root Diameter (test code = 2.73 cm 9718440909) MV mean gradient (test code = mmHg 5533535032) LV SYS VOL (test code = 6250303483) 15.61 ml LV MARTINS VOL (test code = 57.63 ml 6246154038) LA area s A4C (test code = 11.16 cm2 3153184389) LV SV Teich 2D (test code = 42.02 ml 1320962641) LV Vol s Teich PSAX (test code = 15.61 ml 1616009399) MR peak grad (test code = mmHg 5190450241) MV Vmax (test code = 0298032723) 1.21 m MV VTI Tips (test code = 0.24 m 1833801056) RVOT pk grad (test code = mmHg 1193218689) AoV Vmn (test code = 0669089427) LV FS Teich 2D (test code = 6214976725) MV AE ratio (test code = 6932375874) LV FS Cube 2D (test code = 1360491256) LVOT Vmn (test code = 2095259964) Aov area Vmn (test code = 2.13 cm2 6168709827) LVOT mean grad (test code = mmHg 0218508212) MAX Pred HR (test code = 8653112389) 85 of MPHR (test code = 0104073438) Calc MPHR (test code = 1837955721) bpm LV SV Cube 2D (test code = 39.93 ml 3363715504) LV vol d cube 2D (test code = 50.11 ml 4717833731) LV vol s cube 2D (test code = 10.18 ml 3748099935) MV Decel slope (test code = 3.97 m/s2 4037000110) Pred Exer Dur R1 (test code = 5249429764) Pred METS R1 (test code = 7347438851) LA Vol MOD A4C (test code = 24.20 ml 2885591266) Velocity Ratio (V1/V2) (test code = 0.81 m/s 4689) EF (test code = 8325706902) 72.91 % E/A ratio (test code = 9720046548) LVOT VTI (CM) (test code = 23.00 cm 0781834846) SOMMER (test code = SOMMER) [facility] [id number] 17:32:37 Test Item Value Reference Range Interpretation Comments POC glucose (test code = 49689-6) 207 mg/dL 65-99 H Lab Interpretation (test code = Abnormal 73994-4) [facility] duplex venous lower goxqpjbkg7095-32-98 01:17:37 EXAMINATION: US DUPLEX VENOUS LOWER EXTREMITY [...] is no evidence of deep venous thrombosis. [facility]-[id number] Interface, Radiology Results 03/17/2021 8:20 PM CDT [...] There is no evidence of deep venous thrombosis.[facility]-[id number] HospitalXR Chest 1 Vw [id number] 21:32:52EXAMINATION: XR CHEST 1 VW PORTABLE CLINICAL HISTORY: 40 years Female SOB COMPARISON: None. IMPRESSION: Lines, tubes, and devices: Right-sided transvenous cardiac pacemaker. Heart and mediastinum: Cardiomediastinal silhouette is normal. Lungs and pleura: There is no focal airspace disease, pleural effusion or pneumothorax. Bones/soft tissues: No acute osseous abnormality. [facility]-[id number] Dictated and approved by vice president planning/fellow: Cristhian Calixto M.D. I, Jan Scott MD, personally reviewed the images and resident's/fellow's findings and agree with the final report.[facility], Radiology Results Incoming - 03/17/2021 4:35 PM CDT EXAMINATION: XR CHEST 1 PORTABLECLINICAL HISTORY: 40 years Female SOBCOMPARISON: None.IMPRESSION:Lines, tubes, and devices: Right-sided transvenous cardiac pacemaker.Heart and mediastinum: Cardio mediastinal silhouette is normal.Lungs and pleura: There is no focal airspace disease, pleural effusion or pneumothorax.Bones/soft tissues: No acute osseous abnormality.[facility]-[id number] and approved by vice president planning/fellow: Cristhian Calixto M.D.I, Jan Scott MD, personally reviewed the images and resident's/fellow's findings and agree with the final report.[facility] ARRYTHMIA IMPLANT REPORT - [id number] 20:45:31Ordered by an unspecified provider.[facility] Preliminary Interpretation - Not an [id number] 20:36:46 Test Item Value Reference Range Interpretation Comments SOMMER (test code = SOMMER) Lab Interpretation (test code = Abnormal 54028-7) [facility] Metabolic [id number] 07:01:00 Test Item Value Reference Range Interpretation Comments Sodium (test code = 137 meq/L 641-387 1431-2) Potassium (test code = 4.3 meq/L 3.5-5.1 2823-3) Chloride (test code = 104 meq/L 98-107 2075-0) CO2 (test code = 24 meq/L 22-29 2028-9) BUN (test code = 15 mg/dL 7-21 3094-0) Creatinine (test code 0.81 mg/dL 0.57-1.25 = 2160-0) Glucose (test code = 108 mg/dL 70-105 H 2345-7) Calcium (test code = 9.2 mg/dL 8.4-10.2 18605-7) EGFR (test code = 79 mL/min/1.73 [place] [address]-0) NOT ACCURATE CREATININE CLEARANCE IN PREDICTING GLOMERULAR FILTRATION RATE . ESTIMATED GFR I S NOT APPLICABLE FOR DIALYSIS PATIENTS. SOMMER (test code = SOMMER) Fish Straightener ID - PIAYA L Lab Interpretation Abnormal (test code = 63150-8) [facility]esium[facility] 07:01:00 Test Item Value Reference Range Interpretation Comments Magnesium (test code = 2.5 mg/dL 1.6-2.6 71901-4) SOMMER (test code = SOMMER) Fish Straightener ID - MACHELLE L Lab Interpretation (test Normal code = 89822-7) [facility]osphorus2021-[facility]-21 07:01:00 Test Item Value Reference Range Interpretation Comments Phosphorus (test code = 4.3 mg/dL 2.3-4.7 2777-1) SOMMER (test code = SOMMER) Fish Straightener ID - SHAMIKADEANN L Lab Interpretation (test Normal code = 40550-3) [facility] HospitalBASIC METABOLIC [id number] 07:01:00 Test Item Value Reference Range Interpretation [...] S NOT APPLICABLE FOR DIALYSIS PATIEN TS. Fish Straightener ID - MACHELLE [id number] 07:01:00 Test Item Value Reference Range Interpretation Comments MAGNESIUM (BEAKER) (test code = 2.5 mg/dL 1.6-2.6 627) Fish Straightener ID - MACHELLE AFRCVNZFJBR7444-29-10 07:01:00 Test Item Value Reference Range Interpretation Comments PHOSPHORUS (BEAKER) (test code = 4.3 mg/dL 2.3-4.7 604) Fish Straightener ID - MACHELLE LCBC with platelet count + automated [id number] 05:37:00 Test Item Value Reference Range Interpretation Comments WBC (test code = 6690-2) 6.8 See_Comment [A utomated message] The system [employer] generated this result transmitted ref erence range: 3.5 - 10 .5 K/L. The refe rence range was not u sed to interpret this result as normal/abnor mal. RBC (test code = 789-8) 5.14 See_Comment [Au tomated message] The system [employer] generated this result transmitted ref erence range: 3.93 - 5 .22 M/L. The refe rence range was not u sed to interpret this result as normal/abnor mal. MCHC (test code = 786-4) 31.6 See_Comment L [A utomated message] The system [employer] generated this result transmitted ref erence range: [...] See_Comment [Aut omated message] 777-3) The system [employer] generated this result transmitted ref erence range: 150 - 45 0 K/CU MM. The referen ce range was not u sed to interpret this result as normal/abnor mal. MPV (test code = 10.0 fL 9.4-12.3 32401-8) nRBC (test code = 413) 0 See_Comment [Aut omated message] The system [employer] generated this result transmitted ref erence range: [...] See_Comment [Aut omated message] 670) The system [employer] generated this result transmitted ref erence range: 1.56 - 6 .13 K/L. The refe rence range was not u sed to interpret this result as normal/abnor mal. # Lymphs (test code = 2.10 See_Comment [Auto mated message] 414) The system [employer] generated this result transmitted ref erence range: 1.18 - 3 .74 K/L. The refe rence range was not u sed to interpret this result as normal/abnor mal. # Monos (test code = 0.48 See_Comment H [Autom ated message] 415) The system [employer] generated this result transmitted ref erence range: 0.24 - 0 .36 K/L. The refe rence range was not u sed to interpret this result as normal/abnor mal. # Eos (test code = 416) 0.26 See_Comment [Au tomated message] The system [employer] generated this result transmitted ref erence range: 0.04 - 0 .36 K/L. The refe rence range was not u sed to interpret this result as normal/abnor mal. # Baso (test code = 417) 0.04 See_Comment [A utomated message] The system [employer] generated this result transmitted ref erence range: 0.01 - 0 .08 K/L. The refe rence range was not u sed to interpret this result as normal/abnor mal. Immature 1 % 0-1 Granulocytes-Relative (test code = 2801) Lab Interpretation (test Abnormal code = 39994-5) [facility] W/PLT COUNT & AUTO [id number] 05:37:00 Test Item Value Reference Range Interpretation [...] code = 2801) MR, MRA, BRAIN, WITHOUT [id number] 16:54:00Reason for exam:->Ischemic Stroke EvaluationP[facility] : 1980 Sex: FFINAL REPORT MR, BRAIN, WITHOUT CONTRAST, MR, MRA, BRAIN, WITHOUT CONTRAST, MR, MRA, NECK, WITHOUT IV CONTRAST INDICATION: Stroke, follow upIschemic Stroke Evaluation TECHNIQUE: Multiplanar, multisequence MR imaging of the brain without intravenous contrast.MRA of the head utilizing 3-D phjw-cx-lgrueg technique, with 3-D reconstructions.MRA of the neck utilizing 2-D and 3-D zddc-lw-azwhjy technique, with 3-D reconstructions. COMPARISON: MRI and [...] within the head and neck. Signed: [facility] Verified Date/Time: 02/11/2021 16:54:16 MR, MRA, NECK, WITHOUT IV [id number] 16:54:00Reason for exam:->Ischemic Stroke Evaluation [facility] : 1980 Sex: FFINAL REPORT MR, BRAIN, WITHOUT CONTRAST, MR, MRA, BRAIN, WITHOUT CONTRAST, MR, MRA, NECK, WITHOUT IV CONTRAST INDICATION: Stroke, follow upIschemic Stroke Evaluation TECHNIQUE: Multiplanar, multisequence MR imaging of the brain without intravenous contrast.MRA of the head utilizing 3-D lwor-ax-jwdtor technique, with 3-D reconstructions.MRA of the neck utilizing 2-D and 3-D hcxe-nf-tztpmy technique, with 3-D reconstructions. COMPARISON: MRI and [...] within the head and neck. Signed: [facility]har[facility] Verified Date/Time: 02/11/2021 16:54:16 MR, BRAIN, WITHOUT [id number] 16:54:00Reason for exam:->Ischemic Stroke Evaluation [facility] : 1980 Sex: FFINAL REPORT MR, BRAIN, WITHOUT CONTRAST, MR, MRA, BRAIN, WITHOUT CONTRAST, MR, MRA, NECK, WITHOUT IV CONTRAST INDICATION: Stroke, follow upIschemic Stroke Evaluation TECHNIQUE: Multiplanar, multisequence MR imaging of the brain without intravenous contrast.MRA of the head utilizing 3-D prmv-mf-bbrhcn technique, with 3-D reconstructions.MRA of the neck utilizing 2-D and 3-D blwe-ov-xhotxk technique, with 3-D reconstructions. COMPARISON: MRI and [...] the head and neck. Signed: Lakshmi Amador MDRort Verified Date/Time: 02/11/2021 16:54:16 MR brain without IV [id number] 16:54:00Interface, External Ris In - 02/11/2021 4:56 PM CDTFINAL REPORT MR, BRAIN, WITHOUT CONTRAST, MR, MRA, BRAIN, WITHOUT CONTRAST, MR, MRA, NECK, WITHOUT IV CONTRAST INDICATION: Stroke, follow upIschemic Stroke Evaluation TECHNIQUE: Multiplanar, multisequence MR imaging of the brain without intravenous contrast.MRA of the head utilizing 3-D nxpl-lt-hrxdab technique, with 3-D reconstructions.MRA of the neck utilizing 2-D and 3-D bgqn-eh-alndpk technique, with 3-D reconstructions. COMPARISON: MRI and [...] Lakshmi Amador MDReport Verified Date/Time: 02/11/2021 16:54:16 [facility] [id number] 16:54:00Interface, External Ris In - 02/11/2021 4:56 PM CDTFINAL REPORT MR, BRAIN, WITHOUT CONTRAST, MR, MRA, BRAIN, WITHOUT CONTRAST, MR, MRA, NECK, WITHOUT IV CONTRAST INDICATION: Stroke, follow upIschemic Stroke Evaluation TECHNIQUE: Multiplanar, multisequence MR imaging of the brain without intravenous contrast.MRA of the head utilizing 3-D zwyu-iq-hojyox technique, with 3-D reconstructions.MRA of the neck utilizing 2-D and 3-D pcuz-sc-dvutid technique, with 3-D reconstructions. COMPARISON: MRI and [...] Lakshmi Amador MDReport Verified Date/Time: 02/11/2021 16:54:16 [facility] without IV [id number] 16:54:00Interface, External Ris In - 02/11/2021 4:56 PM CDTFINAL REPORT MR, BRAIN, WITHOUT CONTRAST, MR, MRA, BRAIN, WITHOUT CONTRAST, MR, MRA, NECK, WITHOUT IV CONTRAST INDICATION: Stroke, follow upIschemic Stroke Evaluation TECHNIQUE: Multiplanar, multisequence MR imaging of the brain without intravenous contrast.MRA of the head utilizing 3-D ufiu-js-waobvj technique, with 3-D reconstructions.MRA of the neck utilizing 2-D and 3-D cyid-sw-sjdpaw technique, with 3-D reconstructions. COMPARISON: MRI and [...] Lakshmi Amador MDReport Verified Date/Time: 02/11/2021 16:54:16 [facility] HospitalRPR2021-[facility] 14:02:00 Test Item Value Reference Range Interpretation Comments RPR (test code = 39255-8) Nonreactive Nonreactive Lab Interpretation (test code = Normal 93513-5) [facility]00 Test Item Value Reference Range Interpretation Comments RPR SCREEN (BEAKER) (test code = Nonreactive Nonreactive 420) Hemoglobin [id number] 09:35:00 Test Item Value Reference Range Interpretation Comments Hemoglobin A1C (test code = 4548-4) 6.0 % 4.3-6.1 Lab Interpretation (test code = Normal 04870-7) [facility] HospitalHEMOGLOBIN [id number] 09:35:00 Test Item Value Reference Range Interpretation Comments HEMOGLOBIN A1C (BEAKER) (test code = 6.0 % 4.3-6.1 368) Rapid drug screen, [id number] 07:26:00 Test Item Value Reference Range Interpretation Comments Barbiturate Screen Negative Negative (test code = 92740-6) Benzodiazepine Screen Negative Negative (test code = 06180-5) Cocaine (Metab.) Negative Negative Screen (test code = 3397-7) Methadone Screen (test Negative Negative code = 10142-5) Opiate Screen (test Negative Negative code = 96371-9) Cannabinoid Screen Negative Negative (test code = 54807-8) Amph/Methamph Screen Negative Negative (test code = 98666-3) Phencyclidine Screen Negative Negative (test code = 54244-8) pH, UA (test code = 6.5 5.0-8.0 5803-2) SOMMER (test code = SOMMER) DRUG CUTOFF CONC.Cocaine 300 ng/mL Cannabinoid 50 ng/mLBenzodiazepine 200 ng/mLBarbiturate 200 ng/mLPhencyclidine 25 ng/mLOpiate 300 ng/mLMethadone 300 ng/mLAmphetamine/ 1000 ng/mL Methamphetamine This assay provides an unconfirmed qualitative test result for the clinical management of patients in emergency situations. Chain of custody not maintained. Some vcyh-lrj-cecmtpf medications, as well as adulterants, may cause inaccurate results. Clinical correlation should be applied. A more comprehensive drug screen or confirmation of a detected drug may be performed upon request.Fish Straightener ID - VIET Jerez Lab Interpretation Normal (test code = 45163-6) [facility] HospitalRAPID DRUG SCREEN, [id number] 07:26:00 Test Item Value Reference Range Interpretation [...] situations. Chain of custody not maintained. Some rhya-nuw-yutptoi medications, as well as adulterants, may cause inaccurate results. Clinical correlation should be applied. A more comprehensive drug screen or confirmation of a detected drug may be performed upon request.Fish Straightener ID - VIET MUrinalysis with Microscopic If [id number] 07:11:00 Test Item Value Reference Range Interpretation Comments Color, UA (test code = Light Yellow 5778-6) Clarity, UA (test code = Clear 5767-9) Specific [place], UA (test 1.012 1.001-1.035 code = 5811-5) pH, UA (test code = 6.5 5.0-8.0 5803-2) Protein, UA (test code = Negative Negative 84350-4) Glucose, UA (test code = Negative Negative 365) Ketones, UA (test code = Negative Negative 2514-8) Bilirubin, UA (test code = Negative Negative 51786-8) Blood, UA (test code = Small Negative A 23263-8) Nitrite, UA (test code = Negative Negative 5802-4) Leukocytes, UA (test code Small Negative A = 5799-2) Urobilinogen, UA (test 0.2 mg/dL 0.2-1 code = 15740-2) Specimen Source (test code = 2795) SOMMER (test code = SOMMER) Fish Straightener ID - [auto]Fish Straightener ID - tech Lab Interpretation (test Abnormal code = 54727-4) [facility] HospitalUrinalysis Microscopic [id number] 07:11:00 Test Item Value Reference Range Interpretation Comments RBC, UA (test 11 See_Comment [Automated me ssage] code = 61409-0) The system [facility] generated this result transmitted ref erence range: /HPF. Th e reference range was not used to int erpret this result as normal/abnormal . WBC, UA (test 11 See_Comment [Automated me ssage] code = 5821-4) The system [facility] generated this result transmitted ref erence range: /HPF. Th e reference range was not used to int erpret this result as normal/abnormal . Mucus (test Rare code = 8247-9) Squam Epithel, 3 See_Comment [Automated m essage] UA (test code = The system w [facility] 68148-4) generated this result transmitted ref erence range: /HPF. Th e reference range was not used to int erpret this result as normal/abnormal . SOMMER (test code Fish Straightener ID - tech = SOMMER) [facility] HospitalURINALYSIS WITH MICROSCOPIC IF [id number] 07:11:00 Test Item Value Reference Range Interpretation [...] = 463) SOURCE(BEAKER) (test code = 2795) Fish Straightener ID - [auto]Fish Straightener ID - techURINALYSIS XUWRPIDHXTQ2422-09-34 07:11:00 Test Item Value Reference Range Interpretation Comments RBC UA (BEAKER) (test code = 519) 11 /HPF WBC UA (BEAKER) (test code = 520) 11 /HPF MUCUS (BEAKER) (test code = 1574) Rare SQUAMOUS EPITHELIAL (BEAKER) (test 3 /HPF code = 516) Fish Straightener ID - techDigoxin [id number] 06:22:00 Test Item Value Reference Range Interpretation Comments Digoxin Lvl (test code = <0.30 0.8-2 L 03067-1) SOMMER (test code = SOMMER) Fish Straightener ID - PIAYA L Lab Interpretation (test Abnormal code = 57721-2) [facility] HospitalDIGOXIN [id number] 06:22:00 Test Item Value Reference Range Interpretation Comments DIGOXIN LEVEL (BEAKER) (test code = < ng/mL 0.80-2.00 L 669) Fish Straightener ID - PIAYA DAsclenlyalhn9651-94-06 05:58:00 Test Item Value Reference Range Interpretation Comments Homocysteine (test code = 7.3 umol/L 5.1-15.4 18977-4) SOMMER (test code = SOMMER) Fish Straightener ID - PIAYA L Lab Interpretation (test Normal code = 49659-6) [facility] HospitalTSH/Free T4 If [id number] 05:58:00 Test Item Value Reference Range Interpretation Comments TSH (test code = 4.368 See_Comment [Automated 82408-3) message] The system which generated this result transmit aida reference range : 0.350 - 4.940 uIU/mL. The reference range was not used to interpret this result as normal/abnormal . SOMMER (test code = SOMMER) Fish Straightener ID - PIAYA L Lab Interpretation Normal (test code = 72473-0) [facility] HospitalVitamin B12 and [id number] 05:58:00 Test Item Value Reference Range Interpretation Comments Vitamin B12 (test 557 pg/mL 213-816 code = 2132-9) Folate (test code = 11.20 ng/mL See_Comment [Automa aida 2284-8) message] The system which generated this result transmit aida reference range : >=7.00. The reference range was not used to interpret this result as normal/abnormal . SOMMER (test code = SOMMER) Fish Straightener ID - MACHELLE L Lab Interpretation Normal (test code = 79042-5) [facility] HospitalOfpyjhSQCVGGDFBPIM1738-44-89 05:58:00 Test Item Value Reference Range Interpretation Comments HOMOCYSTEINE (BEAKER) (test code = 7.3 umol/L 5.1-15.4 642) Fish Straightener ID - MACHELLE LTSH/FREE T4 IF [id number] 05:58:00 Test Item Value Reference Range Interpretation Comments THYROID STIMULATING HORMONE 4.368 uIU/mL 0.350-4.940 (BEAKER) (test code = 772) Fish Straightener ID - MACHELLE LVITAMIN B12 AND [id number] 05:58:00 Test Item Value Reference Range Interpretation Comments VITAMIN B12 557 pg/mL 213-816 (BEAKER) (test code = 774) FOLATE (BEAKER) 11.20 ng/mL See_Comment [Automated message] (test code = 362) The system which generated this result transmitted ref erence range: >=7.00. The reference range was not used to interpr et this result as normal/abnormal . Fish Straightener ID - MACHELLE LC-Reactive Pgzanzd3501-18-13 04:54:00 Test Item Value Reference Range Interpretation Comments CRP (test code = 676) 0.81 mg/dL 0-0.5 H SOMEMR (test code = SOMMER) Fish Straightener ID - MACHELLE L Lab Interpretation (test Abnormal code = 54708-3) [facility] HospitalMAGNESIUM2021-05-20 04:54:00 Test Item Value Reference Range Interpretation Comments MAGNESIUM (BEAKER) 2.1 mg/dL 1.6-2.6 Specimen slightly (test code = 627) hemolyzed Fish Straightener ID - MACHELLE [id number] 04:54:00 Test Item Value Reference Range Interpretation Comments PHOSPHORUS (BEAKER) 4.3 mg/dL 2.3-4.7 Specimen slightly (test code = 604) hemolyzed Fish Straightener ID - MACHELLE LBASIC METABOLIC [id number] 04:54:00 Test Item Value Reference Range Interpretation [...] S NOT APPLICABLE FOR DIALYSIS PATIEN TS. Fish Straightener ID - PIAYA LC-REACTIVE WAKVFZQ1671-09-28 04:54:00 Test Item Value Reference Range Interpretation Comments C-REACTIVE PROTEIN (BEAKER) (test 0.81 mg/dL 0.00-0.50 H code = 676) Fish Straightener ID - PIAYA LCBC W/PLT COUNT & AUTO [id number] 02:54:00 Test Item Value Reference Range Interpretation [...] = 2801) RAD, CHEST, 1 VIEW, NON [id number] 22:40:00Reason for exam:->strokeShould this be performed at the bedside?->Yes [facility] 1980 Sex: FFINAL REPORT RAD, CHEST, 1 VIEW, NON DEPT TECHNIQUE: Frontal view(s) of the chest. INDICATION: stroke. COMPARISON: 08/20/2018 chest radiograph FINDINGS/IMPRESSION: Lines/Tubes: Unchanged 2-lead pacemaker Lungs/pleura: No focal consolidation or definite interstitial pulmonary edema.No pleural effusion. No pneumothorax. Heart and Mediastinum: Unremarkable. Soft Tissues and Bones: Unremarkable. Signed: Wilmer Nieves Verified Date/Time: 02/10/2021 22:40:02 Reading Location: [address] Transitional Reading Room XR chest 1 view portable / [id number] 22:40:00Interface, External Ris In - 02/10/2021 10:42 [...] Nieves Verified Date/Time: 02/10/2021 22:40:02 Reading Location: [address] Transitional Reading [facility] AUTO [id number] 22:16:00 Test Item Value Reference Range Interpretation [...] Range Interpretation Comments BNP (test code = 81208-6) <10 0-100 SOMMER (test code = SOMMER) Fish Straightener ID - BS Lab Interpretation (test Normal code = 42959-8) [facility] HospitalB-TYPE NATRIURETIC FACTOR (BNP)2021-02-10 22:04:00 Test Item Value Reference Range Interpretation Comments B-TYPE NATRIURETIC PEPTIDE (BEAKER) < pg/mL 0-100 (test code = 700) Fish Straightener ID - BSHigh Sensitivity Troponin I ([facility] Only)2021-02-10 21:57:00 Test Item Value Reference Range Interpretation Comments Troponin I HS (test <4 See_Comment [Automa aida code = 80954-4) message] The system which generated this result transmitted reference range : <=17 pg/ml. The reference range was not used to interpret this result as normal/abnormal . SOMMER (test code = Fish Straightener ID - SOMMER) BSThe FORESTRY TECHNICIAN STAT High Sensitivity Troponin-I results should be used in conjunction with other diagnostic information such as ECG, clinical observations and information, and patient symptoms to aid in the diagnosis of DC. Lab Interpretation Normal (test code = 61886-5) [facility] HospitalH[facility]ENSITIVITY TROPONIN [id number] 21:57:00 Test Item Value Reference Range Interpretation Comments HIGH SENSITIVITY < pg/ml See_Comment [Automated message] TROPONIN I (test code = The system which [id number]) generated this result transmitted ref erence range: <=17. Th e reference range was not used to interpr et this result as normal/abnormal . Fish Straightener ID - BSThe FORESTRY TECHNICIAN STAT High Sensitivity Troponin-I results should be used in conjunctionwith other diagnostic information such as ECG, clinical observations and information, and patient symptoms to aid in the diagnosis of DC.Lipid [id number] 21:54:00 Test Item Value Reference Range Interpretation Comments Triglycerides (test 171 mg/dL Specimen code = 2571-8) markedly hemolyzed Cholesterol (test 218 mg/dL Specimen code = 2093-3) markedly hemolyzed HDL (test code = 47 mg/dL 5-9) LDL Calculated (test 137 mg/dL code = 78669-2) SOMMER (test code = Triglyceride SOMMER) Reference Range: Low Risk <150 Borderline 150-199 High Risk 200-499 Very High Risk >=500 Cholesterol Reference Range: Low Risk <200 Borderline 200-239 High Risk >240 HDL Cholesterol Reference Range: Low Risk >=60 High Risk <40 LDL Cholesterol Reference Range: Optimal <100 Near Optimal 100-129 Borderline 130-159 High 160-189 Very High >=190 Fish Straightener ID - BS [facility] [id number] 21:54:00 Test Item Value Reference Range Interpretation [...] Borderline 130-159 High 160-189 Very High >=190 Fish Straightener ID - BSComprehensive metabolic [id number] 21:52:00 Test Item Value Reference Range Interpretation Comments Protein, Total 8.0 See_Comment Specimen slig htly (test code = hemolyzed 2884-2) [Automated message] The system which generated this result transmit aida reference range : 6.0 - 8.3 gm/dL . The reference range was not u sed to interpret th is result as normal/abnormal . Albumin (test code 4.2 g/dL 3.5-5 Specimen slightly = 22386-8) hemolyzed Alkaline 135 U/L 40-150 Phosphatase (test code = 6768-6) Total Bilirubin 0.2 mg/dL 0.2-1.2 Specimen sli ghtly (test code = hemolyzed 1974-) Sodium (test code = 139 meq/L 591-366 3494-2) Potassium (test 4.5 meq/L 3.5-5.1 Specimen sli ghtly code = 2823-3) hemolyzed Chloride (test code 103 meq/L 98-107 = 2075-0) CO2 (test code = 25 meq/L 22-29 2027-) BUN (test code = 9 mg/dL 7- 3094-0) Creatinine (test 0.78 mg/dL 0.57-1.25 Specimen sl ightly code = 2160-0) hemolyzed Glucose (test code 105 mg/dL 70-105 = 2345-7) Calcium (test code 9.6 mg/dL 8.4-10.2 = 08291-1) AST (test code = 28 U/L 5-34 Specimen sl ightly 1920-8) hemolyzed ALT (test code = 52 U/L 6-55 Specimen sl ightly 1742-6) hemolyzed EGFR (test code = 82 mL/min/1.73 [place] [address]-7) NOT ACCURATE CREATININE CLEARANCE IN PREDICTING GLOMERULAR FILTRATION RATE . ESTIMATED GFR I S NOT APPLICABLE FOR DIALYSIS PATIEN TS. SOMMER (test code = Fish Straightener ID - BS SOMMER) [facility]Creatine Kinase (CK)2021-02-10 21:52:00 Test Item Value Reference Range Interpretation Comments Total CK (test code = 70 U/L 29-200 2157-6) SOMMER (test code = SOMMER) Fish Straightener ID - BS Lab Interpretation (test Normal code = 49734-1) [facility]MAGN[facility]IUM2021-05-19 21:52:00 Test Item Value Reference Range Interpretation Comments MAGNESIUM (BEAKER) 2.2 mg/dL 1.6-2.6 Specimen slightly (test code = 627) hemolyzed Fish Straightener ID - [id number] 21:52:00 Test Item Value Reference Range Interpretation Comments PHOSPHORUS (BEAKER) 4.4 mg/dL 2.3-4.7 Specimen slightly (test code = 604) hemolyzed Fish Straightener ID - BSCOMPREHENSIVE METABOLIC [id number] 21:52:00 Test Item Value Reference Range Interpretation [...] S NOT APPLICABLE FOR DIALYSIS PATIEN TS. Fish Straightener ID - BSCREATINE KINASE (CK)2021-02-10 21:52:00 Test Item Value Reference Range Interpretation Comments CREATINE KINASE TOTAL (BEAKER) (test 70 U/L 29-200 code = 380) Fish Straightener ID - [id number] 21:46:00 Test Item Value Reference Range Interpretation Comments PTT (test code = 80962-1) 30.5 See_Comment [ Automated message] The system [employer] generated this result transmitted ref erence range: 22.5 - 3 6.0 seconds. The re ference range was not u sed to interpret this result as normal/abnor mal. Lab Interpretation (test Normal code = 45881-4) [facility] HospitalLactic acid, [id number] 21:46:00 Test Item Value Reference Range Interpretation Comments Lactate, Venous (test 1.96 mmol/L 0.5-2.2 Specim en code = 2872) markedly hemolyzed SOMMER (test code = SOMMER) Fish Straightener ID - BS Lab Interpretation Normal (test code = 06506-8) [facility] HospitalAPTT2021-05-19 21:46:00 Test Item Value Reference Range Interpretation Comments PARTIAL THROMBOPLASTIN TIME 30.5 seconds 22.5-36.0 (BEAKER) (test code = 760) LACTIC ACID, [id number] 21:46:00 Test Item Value Reference Range Interpretation Comments LACTATE BLOOD VENOUS 1.96 mmol/L 0.50-2.20 Specime n markedly (2) (BEAKER) (test hemolyzed code = 2872) Fish Straightener ID - BSProthrombin time/[id number] 21:45:00 Test Item Value Reference Interpretation Comments [...] valves. Lab Interpretation Normal (test code = 04152-0) [facility] HospitalPROTHROMBIN TIME/[id number] 21:45:00 Test Item Value Reference Range Interpretation Comments PROTIME (BEAKER) 12.7 seconds 11.9-14.2 (test code = 759) INR (BEAKER) (test 0.98 See_Comment [Automat ed message] code = 370) The system [employer] generated this result transmitted ref erence range: <=5.90. The reference range was not used to int erpret this result as normal/abnormal . RECOMMENDED COUMADIN/WARFARIN INR THERAPY RANGESSTANDARD DOSE: 2.0 - 3.0 Includes: PROPHYLAXIS for venous thrombosis, systemic embolization; TREATMENT for venous thrombosis and/or pulmonary embolus.HIGH RISK: Target INR is 2.5-3.5 for patients with mechanical heart valves.POC-Glucose [id number] 21:39:00 Test Item Value Reference Range Interpretation Comments POC-Glucose Meter (test 93 mg/dL 70-110 : TE STED AT [facility] code = 1538) [address] [place], [address]: Fish Straightener/Techni rhonda ID = [id number] for AILYN JAVIER Lab Interpretation (test Normal code = 59007-8) [facility] HospitalPOCT-GLUCOSE [id number] 21:39:00 Test Item Value Reference Range Interpretation Comments POC-GLUCOSE METER 93 mg/dL 70-110 : TESTED A T [facility] [address] (BEAKER) (test code = KIRKNICOLAS [place], 1538) [address]: Fish Straightener/Techni rhonda ID = [id number] for GERTRUDE SHAY [id number] 15:45:00 Test Item Value Reference Range Interpretation Comments SURG (test code = SURG) RUN DATE: 09/30/20 [facility] - LAB PAGE 1 RUN TIME: 1545 Specimen Inquiry RUN USER: INTERFACE PATIENT: ADAM RIVERA LOC: [place] U #: [id number] AGE/SX: 40/F ROOM: RE09/29/20REG DR: Linus Boone MD : [birth year] BED: DIS: STATUS: DEP [facility] TLOC: SPEC #: [id number] RECD: 09/29/20 STATUS: MACIEL DEY #: [id number] WU: 09/29/[address]: Linus Boone MD ENTERED: 09/29/20 SP TYPE: SURG OTHR DR: Undefined Provider ORDERED: SURG PATH LVL 4 COPIES TO: Linus Boone MD [address] [place] [id number] Undefined Provider HISTOLOGY: TISSUE ID BLK PCS DHIRAJ LEV PROCEDURE DISPOSITION ____ ___ ___ ___ STOMACH, NOS A 1 2 PROCEDURES: SURG PATH LVL 4 (09/29/20) TISSUES: A. STOMACH, NOS - GASTRIC BIOPSY CLINICAL HISTORY R10.13, K21.9, K92.0, R14.0, R11.2, R19.7, R19.4 CPT CODES CPT CODE(S): 00720 , , , , , , FINAL DIAGNOSIS Stomach, biopsy: MILD CHRONIC GASTRITIS NEGATIVE FOR INTESTINAL METAPLASIA, DYSPLASIA, OR MALIGNANCY NEGATIVE FOR HELICOBACTER PYLORI ORGANISMS GROSS DESCRIPTION Gastric biopsy. Received in formalin are two wilkinson tissue fragments, 0.4 cm each, all as A. bk/nr Grossing performed at [facility] Pathology, [address] [place] [address], [address], [place] [address]. Washer Operator: Aditya Hanson M.D. CONTINUED ON NEXT PAGE RUN DATE: 09/30/20 [facility] PAGE 2 RUN TIME: 1545 Specimen Inquiry RUN USER: INTERFACE SPEC #: [id number] PATIENT: ADAM RIVERA #[id number] (Continued) MICROSCOPIC DESCRIPTION Gastric biopsy. Sections demonstrate gastric mucosa with mild chronic inflammation. No dysplasia or malignancy is identified. No evidence of Helicobacter pylori organisms or intestinal metaplasia is seen. Signed SIGNATURE ON FILE ShondapilarHector M 09/30/20 1545 END OF REPORT COVID 19 INHOUSE [id number] 13:41:00 Test Item Value Reference Range Interpretation Comments COVID 19 INHOUSE AG NEGATIVE Negative Per manu facturer, (test code = negative result s should [id number]) be treated aspr esumptive and, if inconsi [...] symptoms co nsistent with COVID-19. BASIC METABOLIC [id number] 13:40:00 Test Item Value Reference Range Interpretation [...] MG/DL 8.5-10.1 N - XR CHEST 1 [id number] 13:33:00 [facility] : 1980 Sex: F Name: ADAM RIVERA [place] : 1980 Age/S: 40 / F [address] Unit #: [id number] Loc: [place] [address] Phys: Linus Boone MD Acct: [id number] Dis Date: Status: PRE [facility] PHONE #: [phone] Exam Date: 09/28/2020 1326 FAX #: Reason: PREOP EXAMS: CPT: [id number] CHEST 1 V 29050 Fluoro Time: DAP (Gy m2): Air Kerma (mGy): EXAM: CHEST ONE VIEW INDICATION: PREOP LOCATION: B2 COMPARISON: None available TECHNIQUE: AP view of the chest FINDINGS: The heart size isnormal.. There is a cardiac pacing device in [...] PAGE 1 Signed Report Name: ADAM RIVERA Hondo : 1980 Age/S: 40 / F [address] Unit #: [id number] Loc: [place] [address] Phys: Linus Boone MD Acct: [id number] Dis Date: Status: PRE MTC PHONE #: [phone] Exam Date: 09/28/2020 1326 FAX #: Reason: PREOP EXAMS: CPT: [id number] XR CHEST 1 V 62732 Fluoro Time: DAP (Gy m2): Air Kerma (mGy): (Continued) Technologist: RT Emily(R)(CT) Trnscb Date/Time: 09/28/2020 (5743) 16 Orig Print D/T: S: 09/28/2020 (0682) PAGE 2 Signed Report [facility] [id number] 13:29:00 Test Item Value Reference Range Interpretation Comments PT PATIENT (test code = PTP) 10.6 SECONDS 9.3-12.9 N INTERNATIONAL NORMAL RATIO 0.95 INR Unit 0.8-1.2 N (test code = INR) THROMBOPLASTIN TIME [id number] 13:29:00 Test Item Value Reference Range Interpretation Comments THROMBOPLASTIN TIME PARTIAL 28.0 SECONDS 26-35 N (test code = PTT) CBC W/AUTO [id number] 13:26:00 Test Item Value Reference Range Interpretation [...] code NO DIFF/SCN CRITERIA = MDIFF) POCT-GLUCOSE [id number] 10:22:00 Test Item Value Reference Range Interpretation Comments POC-GLUCOSE METER 102 mg/dL 70-110 TESTED AT [facility] [address] [facility] (test code = AYLIN [place] 1538) [address] MR, MRA, BRAIN, WITHOUT [id number] 09:32:00Reason for exam:->Ischemic Stroke EvaluationFINAL REPORT MRA Head CLINICAL HISTORY: Ischemic Stroke TECHNIQUE: MRA of the head utilizing 3-D gzdj-hi-cravgp technique, with 3-D reconstructions. COMPARISON: None FINDINGS: There is no evidence of intracranial aneurysm, focal stenosis, or major branch vessel occlusion. IMPRESSION: No evidence for a major [place] proximal branch vessel occlusion. MRA Neck CLINICAL HISTORY: Ischemic Stroke TECHNIQUE: MRA of the neck utilizing 2-D and 3-D tuzg-kv-htcpai technique, with 3-D reconstructions. COMPARISON: None FINDINGS: The carotid arteries in the neck are patent includingtheir bifurcations. There is antegrade flow in the vertebral arteries in the neck. IMPRESSION: No evidence of hemodynamically significant stenosis in the cervical carotid or vertebral arteries by NASCET criteria. Signed: Santos Winn MDReport Verified Date/Time: 08/21/2018 09:32:09 Reading Location: [facility] C013V Neuro Reading Room MR, MRA, NECK, WITHOUT IV [id number] 09:32:00Reason for exam:->Ischemic Stroke EvaluationFINAL REPORT MRA Head CLINICAL HISTORY: Ischemic Stroke TECHNIQUE: MRA of the head utilizing 3-D yqme-ld-fhufit technique, with 3-D reconstructions. COMPARISON: None FINDINGS: There is no evidence of intracranial aneurysm, focal stenosis, or major branch vessel occlusion. IMPRESSION: No evidence for a major [place] proximal branch vessel occlusion. MRA Neck CLINICAL HISTORY: Ischemic Stroke TECHNIQUE: MRA of the neck utilizing 2-D and 3-D djqr-su-qjmago technique, with 3-D reconstructions. COMPARISON: None FINDINGS: The carotid arteries in the neck are patent includingtheir bifurcations. There is antegrade flow in the vertebral arteries in the neck. IMPRESSION: No evidence of hemodynamically significant stenosis in the cervical carotid or vertebral arteries by NASCET criteria. Signed: Santos Winn Verified Date/Time: 08/21/2018 09:32:09 Reading Location: [address] Neuro Reading Room MR, BRAIN, WITHOUT [id number] 09:25:00Reason for exam:->Ischemic Stroke EvaluationFINAL REPORT MRI [...] Winn Verified Date/Time: 08/21/2018 09:25:25 Reading Location: [address] Neuro Reading Room POCT-GLUCOSE [id number] 21:26:00 Test Item Value Reference Range Interpretation Comments POC-GLUCOSE METER 119 mg/dL 70-110 H TESTED AT [facility] [address] (BEAKER) (test code = AY[place] 1538) [address] POCT-GLUCOSE [id number] 18:03:00 Test Item Value Reference Range Interpretation Comments POC-GLUCOSE METER 119 mg/dL 70-110 H TESTED AT [facility] [address] [facility] (test code = AY[place] 1538) [address] POCT-GLUCOSE [id number] 12:39:00 Test Item Value Reference Range Interpretation Comments POC-GLUCOSE METER 120 mg/dL 70-110 H TESTED AT [facility] [address] [facility] (test code = [facility] 1538) [address] RAD, CHEST, 1 VIEW, NON [id number] 12:04:00Reason for exam:->To Locate Heart Device (Pacemaker)Should [...] MDReport Verified Date/Time: 08/20/2018 12:04:06 Reading Location: [facility] Radiology Reading Room -GLUCOSE [id number] 09:17:00 Test Item Value Reference Range Interpretation Comments POC-GLUCOSE METER 121 mg/dL 70-110 H TESTED AT [facility] [address] [facility] (test code = [facility] [place] [facility] 1538) [address] BASIC METABOLIC [id number] 06:56:00 Test Item Value Reference Range Interpretation [...] NOT APPLICABLE FOR DIALYSIS PATIEN TS. POCT-GLUCOSE [id number] 21:09:00 Test Item Value Reference Range Interpretation Comments POC-GLUCOSE METER 109 mg/dL 70-110 TESTED AT [facility] [address] ([facility] (test code = AY[place] 1538) [address] POCT-GLUCOSE [id number] 17:15:00 Test Item Value Reference Range Interpretation Comments POC-GLUCOSE METER 117 mg/dL 70-110 H TESTED AT [place] [address] ([facility]) (test code = [facility] Miguel [facility] 1538) [address] VITAMIN B12 AND [id number] 06:39:00 Test Item Value Reference Range Interpretation Comments VITAMIN B12 (BEAKER) (test code = 524 pg/mL 213-816 774) FOLATE (BEAKER) (test code = 362) 13.5 ng/mL >=7.0 BASIC METABOLIC [id number] 05:48:00 Test Item Value Reference Range Interpretation [...] S NOT APPLICABLE FOR DIALYSIS PATIEN TS. [id number] 15:42:00 Test Item Value Reference Range Interpretation Comments RPR SCREEN (BEAKER) (test code = Nonreactive Nonreactive 420) HEMOGLOBIN [id number] 09:14:00 Test Item Value Reference Range Interpretation Comments HEMOGLOBIN A1C (BEAKER) (test code = 5.3 % 4.3-6.1 368) TSH/FREE T4 IF [id number] 04:49:00 Test Item Value Reference Range Interpretation Comments THYROID STIMULATING HORMONE 3.18 uIU/mL 0.35-4.94 (BEAKER) (test code = 772) BASIC METABOLIC [id number] 04:38:00 Test Item Value Reference Range Interpretation [...] NOT APPLICABLE FOR DIALYSIS PATIEN TS. LIPID [id number] 04:38:00 Test Item Value Reference Range Interpretation [...] 130-159 High 160-189 Very High >=190HEPATIC FUNCTION [id number] 04:38:00 Test Item Value Reference Range Interpretation [...] (test code = 413) AFB Culture and [id number] 13:24:00Specimen/Source: Wound/PACEMAKERCollected: 09/05/2017 19:45 Status: Final Last Updated: 11/01/2017 13:24 CJX-Rpmbf-Cvvgokgbunvw (Final) (Final) 09/07/17 No acid fast bacill seen on direct smear CultureResult (Final) (Final) 11/01/17 No growth of AFB at six (6) weeksFungus Culture with [id number] 12:12:00Specimen/Source: Wound/PACEMAKERCollected: 09/05/2017 19:45 Status: Final Last Updated: 10/22/2017 12:12 Fungal Smear Result (Final) (Final) 09/06/17 No yeast or hyphae seen Culture Result (Final) (Final) 10/22/17 No fungus isolated at 6 weeks Culture, Blood [id number] 08:23:00Specimen: BloodCollected: 09/04/2017 20:30 Status: Final Last Updated: 09/10/2017 08:23 Culture Result (Final) (Final) No Growth After 5 DaysCulture, Blood [id number] 08:23:00Specimen: BloodCollected: 09/04/2017 20:15 Status: Final Last [...] <=8/4 Susceptible Cefazolin (CFZ) <=4 Susceptible Ceftriaxone (ELECTRICIAN) <=4 Susceptible Chloramphenicol (C) <=8 Susceptible Ciprofloxacin (CP) <=1 Susceptible Clindamycin (CM) 0.5 Susceptible Erythromycin (E) <=0.25 Susceptible Gentamicin (GM) <=1 Susceptible Imipenem (IMP) <=4 Susceptible Levofloxacin (LEV) <=0.5 Susceptible Linezolid (LNZ) 4 Susceptible Oxacillin (OX1) 0.5 Susceptible Penicillin (P) >8 Resistant Rifampin (RA) <=1 Susceptible Tetracycline (TE) <=1 Susceptible Trimethoprim/Sulfa <=0.5/9.Susceptible (SXT) 5 Vancomycin (VA) 2 Susceptible Renal [id number] 08:51:00 Test Item Value Reference Range Interpretation [...] National Kidney Foundation,http :[email or web address] ep.nih.gov CBC with [id number] 07:39:00 Test Item Value Reference Range Interpretation [...] code = ALYMPH) 1.7 K/cumm 0.5-4.6 N Dunn Abs (test code = AMONO) 0.3 K/cumm 0.0-1.2 N Eos Abs (test code = AEOS) 0.29 K/cumm 0.00-0.74 N Baso Abs (test code = ABASO) 0.0 K/cumm 0.00-0.21 N Vancomycin, [id number] 12:33:00 Test Item Value Reference Range Interpretation Comments Vanco, Trou (test code = VANTR) 7.9 ug/mL 10.0-20.0 L Magnesium, [id number] 06:37:00 Test Item Value Reference Range Interpretation Comments Magnesium (test code = MG) 2.4 mg/dL 1.7-2.5 N Renal [id number] 06:29:00 Test Item Value Reference Range Interpretation [...] National Kidney Foundation,http ://nkd ep.nih.gov BHCG, Serum, [id number] 06:26:00 Test Item Value Reference Range Interpretation Comments Preg Qual [Se] (test code = BSHCG) Negative Negative N CBC with [id number] 06:24:00 Test Item Value Reference Range Interpretation [...] code = ALYMPH) 1.6 K/cumm 0.5-4.6 N Dunn Abs (test code = AMONO) 0.4 K/cumm 0.0-1.2 N Eos Abs (test code = AEOS) 0.18 K/cumm 0.00-0.74 N Baso Abs (test code = ABASO) 0.0 K/cumm 0.00-0.21 N XR CHEST 1 [id number] 16:29:55XR CHEST 1 VIEWLOCATION: [id number]: None.INDICATION: REVIEW PICC LINE PLACEMENTDISCUSSION:AP chest and [...] = TSH) 3.44 mIU/mL 0.270-4.200 N Lipid [id number] 05:47:00 Test Item Value Reference Range Interpretation Comments Cholesterol (test 160 mg/dL 0-200 N code = CHOL) Triglycerides (test 126 mg/dL 9-200 N code = TRIG) HDL (test code = 35 mg/dL 50-60 L HDL) Chol/HDL (test code 4.6 Ratio 0.0-4.4 H = CHOLPHDL) LDL, Calculated 100 0-130 N (NOTE)RISK O F HEART (test code = LDLC) DISEASEPu blished by [place] Heart AssociationAnal yte Optimal Boderli ne Increased RiskC HOL <200 200-239 >240TRI G <150 150-199 >200HDL Male: >60 <40HDL Fem dimas: >60 <50LDL < 100 130-159 >160LDL NEAR OPTIMAL IS 100- 129 VLDL (test code = 25 mg/dL 5-40 N VLDL) LDL/HDL (test code = 3 LDLPHDL) Basic Metabolic [id number] 05:47:00 Test Item Value Reference Range Interpretation [...] the National Kidney Foundation,http ://nkd ep.nih.gov Magnesium, [id number] 05:47:00 Test Item Value Reference Range Interpretation Comments Magnesium (test code = MG) 2.3 mg/dL 1.7-2.5 N CBC with [id number] 05:36:00 Test Item Value Reference Range Interpretation [...] code = ALYMPH) 2.2 K/cumm 0.5-4.6 N Dunn Abs (test code = AMONO) 0.3 K/cumm 0.0-1.2 N Eos Abs (test code = AEOS) 0.24 K/cumm 0.00-0.74 N Baso Abs (test code = ABASO) 0.0 K/cumm 0.00-0.21 N Partial Thromboplastin [id number] 21:26:00 Test Item Value Reference Range Interpretation Comments aPTT (test code = PTT) 29.00 seconds 24.39-37.25 N Prothrombin [id number] 21:26:00 Test Item Value Reference Range Interpretation Comments PT (test code = PT) 10.70 seconds 9.78-13.35 N INR (test code = INR) 0.95 Ratio 0.6-1.2 N Comprehensive Metabolic [id number] 21:23:00 Test Item Value Reference Range Interpretation [...] National Kidney Foundation,http ://nkd ep.nih.gov CBC with [id number] 21:16:00 Test Item Value Reference Range Interpretation [...] code = ALYMPH) 2.2 K/cumm 0.5-4.6 N Dunn Abs (test code = AMONO) 0.4 K/cumm 0.0-1.2 N Eos Abs (test code = AEOS) 0.17 K/cumm 0.00-0.74 N Baso Abs (test code = ABASO) 0.1 K/cumm 0.00-0.21 N
--- NOTE | 2022-06-01 12:19 | RAD REPORT ---
EXAM DESCRIPTION: CTStone Protocol - 06/01/2022 12:08 pm CLINICAL HISTORY: low back pain, pelvic pain, trauma COMPARISON: Abdomen Pelvis Wo Contrast dated 05/20/2022; Abdomen Pelvis Wo Contrast dated 05/06/20 22; Stone Protocol dated 05/18/2021; Abdomen Pelvis Wo Contrast dated 02/10/2020 TECHNIQUE: CT of the abdomen and pelvis was performed. All CT scans are performed using dose optimization technique as appropriate and may include automated exposure control or mA/KV adjustment according to patient size. FINDINGS: Lower chest: Pacemaker leads. Liver: No acute abnormality or suspicious lesions. Biliary: Cholecystectomy Stomach: No significant focal abnormality. Duodenum: No significant focal abnormality. Pancreas: No significant abnormality. Spleen: No significant abnormality. Adrenal: No suspicious lesions. Kidney/ureter: No hydronephrosis. Nonobstructing 2-3 mm stones present in the kidneys bilaterally. Retroperitoneum: No retroperitoneal adenopathy. Vascular: No aneurysm. Bowel: No significant focal abnormality. Normal appendix. Peritoneum: No ascites or free air. Bladder: Grossly unremarkable. Reproductive: No adnexal masses. Hysterectomy. Bones: No acute fracture. Other: n/a IMPRESSION: No acute intra-abdominal or pelvic finding. Nonobstructive bilateral nephrolithiasis. No rmal appendix. No evidence of significant trauma is identified.
[2022-06-01] MEDS ORDERED: HYDROCODONE/APAP 10/325 TAB ONE (12:53)
--- NOTE | 2022-06-01 13:42 | ER ---
Nurse's Notes [facility] Name: Jenni Draper Age: 41 yrs Sex: Female : 1980 Arrival Date: 06/01/2022 Time: 10:39 Bed 12 Private MD: Diya Mora Atiq Diagnosis: Strain of muscle, fascia and tendon of lower back Presentation: 06/01 11:03 Chief complaint: Patient states: On the a lawnmower flipped over on me. I came bm7 here and they said everything was just bruised. It is still hurting really bad and my PCP told me to come here. Coronavirus screen: At this time, the client does not indicate any symptoms associated with coronavirus-19. Ebola Screen: No symptoms or risks identified at this time. Initial Sepsis Screen: Does the patient meet any 2 criteria? No. Patient's initial sepsis screen is negative. Does the patient have a suspected source of infection? No. Patient's initial sepsis screen is negative. Risk Assessment: Do you want to hurt yourself or someone else? Patient reports no desire to harm self or others. Onset of symptoms was May 19, 2022. 11:03 Method Of Arrival: Wheelchair 7 11:03 Acuity: LYUBOV 3 bm7 Triage Assessment: 11:04 General: Appears in no apparent distress. uncomfortable, Behavior is anxious. Pain: bm7 Complains of pain in back, abdomen, right leg and left leg. EENT: No deficits noted. No signs and/or symptoms were reported regarding the EENT system. Neuro: No deficits noted. Cardiovascular: No deficits noted. Respiratory: No deficits noted. GI: Abdomen is round non-distended, Bowel sounds present X 4 quads. Abd is soft and non tender X 4 quads. Patient currently denies nausea, vomiting. : No deficits noted. No signs and/or symptoms were reported regarding the genitourinary system. Derm: No deficits noted. No signs and/or symptoms reported regarding the dermatologic system. Musculoskeletal: Range of motion: intact in all extremities, Reports pain in back, abdomen, right leg and left leg. CONTRACT SPECIALIST: 11:04 LMP N/A - Hysterectomy bm7 Historical: - Allergies: 11:04 Adhesives; bm7 11:04 Aspirin; bm7 11:04 Bactrim; bm7 11:04 Benadryl; bm7 11:04 cefixime; bm7 11:04 Cipro IV; bm7 11:04 Clindamycin; bm7 11:04 coconut oil; bm7 11:04 Detrol; bm7 11:04 Diltiazem; bm7 11:04 Doxycycline; bm7 11:04 FISH PRODUCT DERIVATIVES; bm7 11:04 GABAPENTIN; bm7 11:04 Iodine; bm7 11:04 ivabradine; bm7 11:04 Latex, Natural Rubber; bm7 11:04 Morphine; bm7 11:04 PENICILLINS; bm7 11:04 Seroquel; bm7 11:04 Sulfa (Sulfonamide Antibiotics); bm7 11:04 tramadol; bm7 - Home Meds: 11:04 albuterol sulfate 2.5 mg /3 mL (0.083 %) Inhl nebu 3 mL 3 times per day [Active]; bm7 apixaban 5 mg Oral tab 1 tab 2 times per day [Active]; Breo Ellipta inhalation [Active]; BuSpar Oral [Active]; carvedilol 25 mg Oral tab 1 tab 2 times per day [Active]; Crestor 5 mg Oral tab 1 tab once daily [Active]; digoxin 125 mcg (0.125 mg) Oral tab 1 tab once daily [Active]; duloxetine 30 mg Oral CDRS 1 cap once daily [Active]; Keppra 750 mg Oral tab 1 tab [Active]; Lasix 20 mg Oral tab 1 tab [Active]; pantoprazole 20 mg Oral TbEC 1 tab once daily [Active]; Restasis 0.05 % ophthalmic (eye) dpet 1 drop every 12 hours [Active]; Spiriva with HandiHaler inhalation [Active]; Vraylar 4.5 mg Oral cap once daily [Active]; Xanax 0.25 mg Oral tab 1 tab [Active]; - PMHx: 11:04 Anxiety; Atrial fibrillation; Bipolar disorder; COPD; CVA; Seizure; bm7 - PSHx: 11:04 hysterectomy; pacemaker; bm7 - Immunization history:: Adult Immunizations up to date, Client reports receiving the 2nd dose of the Covid vaccine, Client reports receiving the 1st dose of the Covid vaccine. - Social history:: Smoking status: Patient denies any tobacco usage or history of. Screenin:02 Abuse screen: Denies threats or abuse. Denies injuries from another. Nutritional iw screening: No deficits noted. Tuberculosis screening: No symptoms or risk factors identified. Fall Risk None identified. Assessment: 13:00 General: Appears in no apparent distress. Behavior is calm, cooperative. Pain: iw Complains of pain in left leg and right leg and abdomen and back. Neuro: Level of Consciousness is awake, alert, obeys commands, Oriented to person, place, time, situation, Moves all extremities. Full function. Cardiovascular: Patient's skin is warm and dry. Respiratory: Respiratory effort is even, unlabored, Respiratory pattern is regular, symmetrical. GI: Abdomen is non-distended. Derm: Skin is intact, is healthy with good turgor. Musculoskeletal: Range of motion: intact in all extremities. Vital Signs: 11:03 BP 153 / 100; Pulse 80; Resp 16; Temp 98.3(TE); Pulse Ox 100% on R/A; Weight 58.97 kg bm7 (R); Height 4 ft. 11 in. (149.86 cm); Pain 10; 11:03 Body Mass Index 26.26 (58.97 kg, 149.86 cm) bm7 ED Course: 10:39 Patient arrived in ED. am2 10:40 Diya Mora MD is Private Physician. am2 11:00 Lj Tobin PA is PHCP. jmm 11:00 Philip Romeo DO is Attending Physician. jmm 11:04 Triage completed. bm7 11:04 Arm band placed on right wrist. bm7 12:08 CT Stone Protocol In Process Unspecified. EDMS 12:34 Flor Chauhan, RN is Primary Nurse. iw 13:00 Patient has correct armband on for positive identification. iw 13:41 Diya Mora MD is Referral Physician. jmm 14:02 No provider procedures requiring assistance completed. Patient did not have IV access iw during this emergency room visit. Administered Medications: 12:45 Drug: [place] (HYDROcodone-acetaminophen) 10 mg-325 mg 1 tabs Route: PO; iw 13:00 Follow up: Response: No adverse reaction; Pain is decreased iw Medication: 13:00 VIS not applicable for this client. iw Outcome: 13:41 Discharge ordered by . jmm 14:02 Discharged to home via wheelchair, with family. elizabeth 14:02 Condition: good 14:02 Discharge instructions given to patient, Instructed on discharge instructions, follow up and referral plans. Demonstrated understanding of instructions, follow-up care, medications, Prescriptions given X 1. 14:03 Patient left the ED. vg1 Signatures: Dispatcher [employer] EDMS Lj Tobin PA PA jmm Williams, Irene, RN RN iw Vinita Garrison Victoria RN RN vg1 Coni Hughes, RN RN bm7
--- NOTE | 2022-06-01 13:42 | EDPHYS ---
Physician Documentation [facility] Name: Jenni Draper Age: 41 yrs Sex: Female : 1980 Arrival Date: 06/01/2022 Time: 10:39 Bed 12 Private MD: Diya Mora Atiq ED Physician Philip Romeo HPI: 06/01 11:39 This 41 yrs old Female presents to ER via Wheelchair with complaints of Pelvic Pain, jmm Leg Pain - right, Back Pain. 11:39 The patient presents with pelvic pain. Onset: The symptoms/episode began/occurred jmm acutely. This is a 41-year-old female with a history of atrial fibrillation, anxiety, bipolar, COPD, epilepsy the presents emerged part with complaints of lower back and pelvic pain secondary to an injury which she sustained on the of last month. Patient states she was knocked off a riding lawn more. Imaging studies were really negative but patient states she continues to have pain in particular on ambulation. . CHRONIC DISEASE EPIDEMIOLOGIST: 11:04 LMP N/A - Hysterectomy bm7 Historical: - Allergies: 11:04 Adhesives; bm7 11:04 Aspirin; bm7 11:04 Bactrim; bm7 11:04 Benadryl; bm7 11:04 cefixime; bm7 11:04 Cipro IV; bm7 11:04 Clindamycin; bm7 11:04 coconut oil; bm7 11:04 Detrol; bm7 11:04 Diltiazem; bm7 11:04 Doxycycline; bm7 11:04 FISH PRODUCT DERIVATIVES; bm7 11:04 GABAPENTIN; bm7 11:04 Iodine; bm7 11:04 ivabradine; bm7 11:04 Latex, Natural Rubber; bm7 11:04 Morphine; bm7 11:04 PENICILLINS; bm7 11:04 Seroquel; bm7 11:04 Sulfa (Sulfonamide Antibiotics); bm7 11:04 tramadol; bm7 - Home Meds: 11:04 albuterol sulfate 2.5 mg /3 mL (0.083 %) Inhl nebu 3 mL 3 times per day [Active]; bm7 apixaban 5 mg Oral tab 1 tab 2 times per day [Active]; Breo Ellipta inhalation [Active]; BuSpar Oral [Active]; carvedilol 25 mg Oral tab 1 tab 2 times per day [Active]; Crestor 5 mg Oral tab 1 tab once daily [Active]; digoxin 125 mcg (0.125 mg) Oral tab 1 tab once daily [Active]; duloxetine 30 mg Oral CDRS 1 cap once daily [Active]; Keppra 750 mg Oral tab 1 tab [Active]; Lasix 20 mg Oral tab 1 tab [Active]; pantoprazole 20 mg Oral TbEC 1 tab once daily [Active]; Restasis 0.05 % ophthalmic (eye) dpet 1 drop every 12 hours [Active]; Spiriva with HandiHaler inhalation [Active]; Vraylar 4.5 mg Oral cap once daily [Active]; Xanax 0.25 mg Oral tab 1 tab [Active]; - PMHx: 11:04 Anxiety; Atrial fibrillation; Bipolar disorder; COPD; CVA; Seizure; bm7 - PSHx: 11:04 hysterectomy; pacemaker; bm7 - Immunization history:: Adult Immunizations up to date, Client reports receiving the 2nd dose of the Covid vaccine, Client reports receiving the 1st dose of the Covid vaccine. - Social history:: Smoking status: Patient denies any tobacco usage or history of. ROS: 11:39 Constitutional: Negative for fever, chills, and weight loss, Cardiovascular: Negative jmm for chest pain, palpitations, and edema, Respiratory: Negative for shortness of breath, cough, wheezing, and pleuritic chest pain. 11:39 Back: Positive for pain with movement. 11:39 All other systems are negative. Exam: 11:39 Constitutional: This is a well developed, well nourished patient who is awake, alert, jmm and in no acute distress. Head/Face: atraumatic. Eyes: EOMI, no conjunctival erythema appreciated ENT: Moist Mucus Membranes Neck: Trachea midline, Supple Chest/axilla: Normal chest wall appearance and motion. Cardiovascular: Regular rate and rhythm. No edema appreciated Respiratory: Normal respirations, no respiratory distress appreciated Abdomen/GI: Non distended Skin: General appearance color normal 11:39 Neuro: Awake and alert Psych: Behavior is normal, Mood is normal, Patient is cooperative and pleasant 11:39 Back: Lower back pain on palpation, mild painful range of motion. Vital Signs: 11:03 BP 153 / 100; Pulse 80; Resp 16; Temp 98.3(TE); Pulse Ox 100% on R/A; Weight 58.97 kg bm7 (R); Height 4 ft. 11 in. (149.86 cm); Pain 10/10; 11:03 Body Mass Index 26.26 (58.97 kg, 149.86 cm) bm7 MDM: 11:40 Patient medically screened. [facility] 13:04 Data reviewed: vital signs, nurses notes. Counseling: I had a detailed discussion with jm the patient and/or guardian regarding: the historical points, exam findings, and any diagnostic results supporting the discharge/admit diagnosis. 13:41 Counseling: I had a detailed discussion with the patient and/or guardian regarding: m radiology results, the need for outpatient follow up, to return to the emergency department if symptoms worsen or persist or if there are any questions or concerns that arise at home. 06/01 11:39 Order name: CT Stone Protocol; Complete Time: 12:22 [facility] Administered Medications: 12:45 Drug: [place] (HYDROcodone-acetaminophen) 10 mg-325 mg 1 tabs Route: PO; iw 13:00 Follow up: Response: No adverse reaction; Pain is decreased iw Disposition: 22:55 Co-signature as Attending Physician, Philip Romeo DO I was immediately available on-site ms3 in the Emergency Department for consultation in the care of the patient. . Disposition Summary: 06/01/22 13:41 Discharge Ordered Location: Home [facility] Condition: Stable [facility] Diagnosis - Strain of muscle, fascia and tendon of lower back [facility] Followup: [facility] - With: Diya Mora MD - When: 1 - 2 days - Reason: Recheck today's complaints, Continuance of care, Re-evaluation by your physician Discharge Instructions: - Discharge Summary Sheet [facility] - Low Back Sprain or Strain Rehab-SportsMed [facility] Forms: - Medication Reconciliation Form [facility] - Thank You Letter [facility] - Antibiotic Education [facility] - Prescription Opioid Use [facility] Prescriptions: - Zanaflex 4 mg Oral Tablet - take 1 tablet by ORAL route every 8 hours As needed; 20 tablet; Refills: 0, [facility] Product Selection Permitted Signatures: Dispatcher [facility] EDLj Rm PA PA jmm Williams, Irene, RN RN iw Sims, Marcus, DO DO ms3 Coni Hughes, RN RN bm7
[2022-06-01 14:19] VITALS: BP 153/100; TEMP 98.3; O2SAT 100
== END 2022-06-01 14:03 | disposition home or self-care (01) ==
LOC: ER 10:38
DX: S39.012A Strain of muscle, fascia and tendon of lower back, initial encounter (principal); I48.91 Unspecified atrial fibrillation; Z95.0 Presence of cardiac pacemaker; Z88.1 Allergy status to other antibiotic agents; Z88.2 Allergy status to sulfonamides; Z88.3 Allergy status to other anti-infective agents; Z88.5 Allergy status to narcotic agent; Z88.6 Allergy status to analgesic agent; Z88.8 Allergy status to other drugs, medicaments and biological substances; Z91.013 Allergy to seafood; Z91.018 Allergy to other foods; Z91.040 Latex allergy status; Z91.048 Other nonmedicinal substance allergy status
CPT/HCPCS: 74176; 76377; 99283

== ENCOUNTER 2022-07-22 20:18 | Emergency (ER) | payer OTHER ==
--- OUTSIDE RECORDS SUMMARY | 2022-07-22 20:37 | XMS REPORT | Continuity of Care Document ---
:1980 Author Organization [facility] t Address [address] [place] [address] Support Name Relationship Address Phone LINUS RIVERA [address] [phone] [place] [address] JET MARTY P [address] [facility] 3 [phone] [place] [address] LINUS RIVERA Unavailable [phone] Isatu Rivera Mother [address] [place] [address] JetAngeln Child Unavailable Marty Bob Significant Other [address] [place] [address] Marty Bob Significant Other [address] [place] [address] KIMBERLEE LARSEN, AUREA Waters Emergency Provider [address] [facility] [id number] [place] [address] MORGAN LARSEN, SILVERIO Primary Care Physician [address] [facility] [address] [place] [address] BRENDAN LINDQUIST MD Emergency Provider [address] [facility] [phone] [place] [address] MD SILVERIO VELAZQUEZ Primary Care Physician [address] [facility] [place] [address] MD DARCIE KUMARI Admitting Provider [address] [place] [address] MD BAILEY HART Emergency Provider [address] [phone] [place] [address] N, G Unavailable / [phone] MARTY CHAUDHARY Unavailable [address] [facility] [place] [address] Korin Chaudhary Spouse Unavailable MARTY CHAUDHARY [facility] [address] [place] [address] Care Team Providers Name Role Phone SILVERIO VELAZQUEZ YONI Primary Care Physician Unavailable AMADO PADILLA Attending Clinician Unavailable WILMER VERA Attending Clinician Unavailable Linus Boone Attending Clinician Unavailable TEOFILO BAILEY Attending Clinician Unavailable TEOFILO BAILEY Attending Clinician Unavailable MARY BONDS Attending Clinician Unavailable MARIO TRINIDAD Attending Clinician Unavailable NAVI ROMEO.HMariia Attending Clinician Unavailable VISHNU VALIENTE Attending Clinician Unavailable VISHNU VALIENTE Attending Clinician Unavailable Teofilo Bailey MD Attending Clinician Vishnu Valiente DO Attending Clinician Doctor Unassigned, [place] Attending Clinician Unavailable Andrey Benito Attending Clinician Navi Romeo MD K.HMariia Attending Clinician Chevy MARTIN Attending Clinician Unavailable Chevy Espinoza Attending Clinician ANDREY TELLES Attending Clinician Unavailable Ann Hickman MA Attending Clinician Unavailable Jonny Hollins MD, Chilvana Attending Clinician ABDULKADIR STACK Attending Clinician Unavailable Abdulkadir Stack DO Attending Clinician Kanika Meza MD Attending Clinician KANIKA MEZA Attending Clinician Unavailable PONCE FIELD Attending Clinician Unavailable Leonard Fuller MD Attending Clinician [phone] Ponce Field MD Attending Clinician SOL SANCHEZ Attending Clinician Unavailable FLOR Attending Clinician Unavailable ERNIE RODAS Attending Clinician Unavailable ERNIE RODAS Attending Clinician Unavailable CHON FULLER Attending Clinician Unavailable Chiquis Sim MD Attending Clinician SAMMY KURTZ Attending Clinician Unavailable Sammy Kurtz MD Attending Clinician GUCCI JOSHI Attending Clinician Unavailable Gucci Joshi MD Attending Clinician [phone] Chantal Arevalo MD Attending Clinician SELVIN GARCIA Attending Clinician Unavailable Selvin Tuttle S Attending Clinician RADHA ABRAMS Attending Clinician Unavailable Radha Abrams DO Attending Clinician Amos LARSEN, Mario Attending Clinician ANDREWS PRIETO Attending Clinician Unavailable Conner LARSEN, Andrews Attending Clinician Michael ANP, Merrick Attending Clinician [facility] Eeg Attending Clinician Unavailable KARLA LANDEROS Attending Clinician Unavailable Leti INFANTE, Karla Delgadillo Attending Clinician MERRICK RODRIGUEZ Attending Clinician Unavailable Tyler Jean MD Attending Clinician DIEUDONNE GUERIN Attending Clinician Unavailable Dieudonne Guerin MD Attending Clinician Chuy Armstrong MD Attending Clinician Ann Salcido MA Attending Clinician Unavailable Antonio LARSEN, Hector Ochoa Attending Clinician Veda Bolanos MD Attending Clinician Matt Berkowitz MD Attending Clinician HERNESTO BRIAN Attending Clinician Unavailable HERNESTO BRIAN Attending Clinician Unavailable Wilmer Vera MD Attending Clinician Unavailable Carmen Rankin RN Attending Clinician Unavailable AVNI SHEFFIELD Attending Clinician Unavailable Kanika Hoang Attending Clinician Malika Mckeon MD Attending Clinician Dayana Herring RN Attending Clinician Unavailable 2, Ad[facility] Attending Clinician Unavailable STEPHANIE MONROY Attending Clinician Unavailable Visit, [facility] Nurse Attending Clinician Unavailable Lenin Andersen MD Attending Clinician CLEMENTINE KEENAN Attending Clinician Unavailable Only, [facility] Test Attending Clinician Unavailable Kit LARSEN, Win Attending Clinician Siria LARSEN, Hernesto Silverman Attending Clinician Matilde CUT OFF MACHINE OPERATOR, Marialuisa Attending Clinician Corine BARRAGAN, Catie Jerez Attending Clinician Valerie LARSEN, Amado Attending Clinician Lexus LARSEN, Jose Attending Clinician Martin Hill Attending Clinician Anesthesia-Yana, Ep Lab Attending Clinician Unavailable Outpt-Yana, Ep Lab Attending Clinician Unavailable Frank BARRAGAN, Abimbola Attending Clinician Unavailable Shawn Rosas MD Attending Clinician Morgan LARSEN, Silverio Vallejo Attending Clinician Tera Corrigan MD Attending Clinician TERA CORRIGAN Attending Clinician Unavailable Apple Shannon Attending Clinician APPLE BURGESS Attending Clinician Unavailable Armando Velasquez MD Attending Clinician ARMANDO VELASQUEZ Attending Clinician Unavailable Deja Kern RN Attending Clinician Unavailable Jeff Delgado MD Attending Clinician Manfred Lyles MD Attending Clinician Tucker Suarez Attending Clinician Fauzia Ro Attending Clinician JOSE GALVEZ Attending Clinician Unavailable LYLY SUE Attending Clinician Unavailable TYLER JEAN Admitting Clinician Unavailable JOSE ALBERTS Admitting Clinician Unavailable WILMER VERA Admitting Clinician Unavailable Chevy MARTIN Admitting Clinician Unavailable MARIO TRINIDAD Admitting Clinician Unavailable STACK, ABDULKADIR Admitting Clinician Unavailable LEONARD FULLER Admitting Clinician Unavailable Leonard Fuller MD Admitting Clinician [phone] FLOR Admitting Clinician Unavailable SAMMY KURTZ Admitting Clinician Unavailable CHANTAL AREVALO Admitting Clinician Unavailable Irina LARSEN, Chantal Admitting Clinician SELVIN GARCIA Admitting Clinician Unavailable RADHA ABRAMS Admitting Clinician Unavailable VISHNU VALIENTE Admitting Clinician Unavailable KARLA LANDEROS Admitting Clinician Unavailable Tyler Jean MD Admitting Clinician Chuy Armstrong MD Admitting Clinician MATT BERKOWITZ Admitting Clinician Unavailable Malika Mckeon MD Admitting Clinician Jose Alberts MD Admitting Clinician APPLE BURGESS Admitting Clinician Unavailable ARMANDO VELASQUEZ Admitting Clinician Unavailable Jeff Delgado MD Admitting Clinician JOSE GALVEZ Admitting Clinician Unavailable LYLY SUE Admitting Clinician Unavailable Payers Payer Name Policy Type Policy Number Effective Expiration Source Date Date [facility] [id number] 2011 MEDICAID 00:00:00 GENERIC MEDICAID HMO [id number] 2011 00:00:00 [facility] [id number] 2022 00:00:00 [facility] [id number] 2011 Met panda STAR+PLUS 00:00:00 Hospital [id number] 2010- PresentO SOLORIO [id number] [address] [facility] MEDICAIDMEDICAID 00:00:00 Medical [id number]/[address] 018-Present Problems Condition Condition Condition [...] nivers ns ns 4-11 ity of 00:00: [place] 00 Medical Branch Elevated Elevated Disease Active Unive rs d-dimer d-dimer 7- ity of 00:00: [place] 00 Medical Branch Left-sided Left-sided Disease Active [facility] weakness weakness 5-21 [facility] Received Received Disease [facility] tissue tissue [facility]21 [facility] plasminoge plasminoge 00:00: Me dical n n 00 Center activator activator (t-PA) (t-PA) less than less than 24 hours 24 hours prior to prior to arrival arrival Acute Acute Disease Active [facility] ischemic ischemic 5-20 [facility] stroke stroke 00:00: Medical 00 Center Atypical Atypical Disease Active Unive rs chest pain chest pain 4-20 it y of 00:00: [place] 00 Medical Branch Chest pain Chest pain Disease Active [facility] in adult in adult 4-20 [facility] 00:[facility] Medical 00 Center Inappropri Inappropri Disease Active 2019-09 U nivers [...] Disease Active Univers 2-04 ity of 00:00: [place] 00 Medical Branch PVT PVT Disease Active Univers (paroxysma (paroxysma 2-04 it y of l l 00:00: [place] ventricula ventricula 00 Ny dical r r Branch tachycardi tachycardi a) a) Digoxin Digoxin Disease Active Univers toxicity toxicity 2-04 ity of 00:00: [place] 00 Medical Branch AN AN Disease Active 2018-09 Univers (dyspnea (dyspnea 2-01 ity of on on 00:00: [place] exertion) exertion) 00 [facility] Branch Seizure Seizure Disease Active 2018-[address] disorder disorder 2- [facility] 00[facility] 00 Center Mitral Mitral Disease Active Univers valve valve 04-29 ity of regurgitat regurgitat [place] Excessive Excessive Disease Active Uni vers anticoagul anticoagul 8 it y of ation ation 00:00: [place] 00 Medical Branch Deep vein Deep vein Disease Active Uni vers thrombosis thrombosis 04-29 it y of of lower of lower 00:00: [place] extremity extremity 00 [facility] Branch Anxiety Anxiety Disease Active [facility] disorder [...] vers 10-03 ity of 00:00: [place] 00 [facility] Branch Iron Iron Disease Active 2017-09 Overview: Univer s deficiency deficiency 0-19 Formattin ity of anemia, anemia, 00:00: g of this [place] unspecifie unspecifie 00 note Me dical d iron d iron might be Branch deficiency deficiency different anemia anemia from the type type original. Added automatic ally from request for surgery [id number] Abdominal Abdominal Disease Active 2017-09 Overview: Univers pain, pain, 0-19 Formattin ity of unspecifie unspecifie 00:00: g of this [place] d d 00 note Medical abdominal abdominal might be Br anch location location different from the original. Added automatic ally from request for surgery [id number] Nausea and Nausea and Disease Active 2017-09 Overview : Univers vomiting, vomiting, 0-19 Formattin i ty of intractabi intractabi 00:00: g of this [place] lity of lity of 00 note Medical vomiting vomiting might be Bran ch not not different specified, specified, from the unspecifie unspecifie original. d vomiting d vomiting Added type type automatic ally from request for surgery [id number] Non-cardia Non-cardia Disease Active U nivers c chest c chest 8 ity of pain pain 00:00: [place] 00 Medical Branch Essential Essential Disease Active Uni vers hypertensi hypertensi 04-27 it y of on on 00:00: [place] 00 Medical Branch Pacemaker Pacemaker Disease Active Uni vers 8-03 ity of 00:00: Medical Branch PAF PAF Disease Active [facility] (paroxysma (paroxysma 04-27 Jeanie kes l atrial l atrial 00:00: Medica l fibrillati fibrillati 00 Ce nter on) on) History of History of Disease Active 2016-09 U nivers cardiac cardiac 1-29 ity of pacemaker pacemaker [...] Active 2012-09 Overview : Univers dism dism 2 Formattin ity of 00:00: g of this [place] note Medical might be Branch different from the original. ICD10 Diagnosis Term Satellite Manager Utility Hypoglycem Hypoglycem Disease Active 2012-09 Overview : Univers ia ia 10-21 Formattin ity of 00:00: g of this [place] note Medical might be Branch different from the original. ICD10 Diagnosis Term Satellite Manager Utility A-fib A-fib Disease Active Methodi st [...] ity of 00:00: [place] 00 Medical Branch trimetho DA Active MO RASH [facility] prim 1-04 [place] 00:00: d 00 [facility] Center ciproflo DA Active SV HIVES [facility] xacin 1-04 [place] 00:00: d 00 [facility] Center adhesive DA Active SV BLISTERS [facility] tape 1-04 [place] 00:00: d 00 [facility] Center tramadol DA Active SV HIVES [facility] -04 [place] 00:00: d 00 [facility] gabapent DA Active SV RASH [facility] in - [place] 00:00: d 00 [facility] Center diltiaze DA Active SV SHORTNESS OF 2020-0 HC A m BREATH -04 [place] 00:00: d 00 [facility] diphenhy DA Active SV RASH [facility] dramine -04 [place] 00:00: d 00 [facility] topirama DA Active SV HIVES/MEMORY HC A te LOSS -04 [place] 00:00: d 00 [facility] levoflox DA Active SV HIVES [facility] acin -04 [place] 00:00: d 00 [facility] Center quetiapi DA Active MO RASH 2020-0 [facility] ne 1-04 [place] 00:00: d 00 [facility] Center tolterod DA Active MO RASH 2020-0 [facility] ine 1-04 [place] 00:00: d 00 Medical Center latex DA Active SV BLISTERS 2020-0 [facility] 1-04 [place] 00:00: d 00 [facility] Center ivabradi DA Active MO RASH 2020-0 [facility] ne 1-04 [place] 00:00: d 00 Medical Center coconut FA Active MO RASH 2020-0 [facility] 1-04 [place] 00:00: d 00 [facility] Center Penicill DA Active SV 2020-0 [facility] ins -04 [place] 00:00: d 00 Medical [place] Sulfa DA Active MO 2020-0 [facility] (Sulfona [...] [facility] prim -04 [place] 00:00: d 00 [facility] Center ciproflo DA Active SV 2020-0 [facility] xacin 1-04 [place] 00:00: d 00 Medical Center adhesive DA Active SV 2020-0 [facility] tape 1-04 [place] 00:00: d 00 Medical Center tramadol DA Active SV 1-0 [facility] 1-04 [place] 00:00: d 00 [facility] Center gabapent DA Active SV 2021-0 [facility] in - [place] 00:00: d 00 Medical Center diltiaze DA Active SV 1-0 [facility] m -04 [place] 00:00: d 00 Medical Center diphenhy DA Active SV 2020-0 [facility] dramine -04 [place] 00:00: d 00 Medical Center topirama DA Active SV 1-0 [facility] te 1-04 [place] 00:00: d 00 Medical Center levoflox DA Active SV 1-0 [facility] acin -04 [place] 00:00: d 00 Medical Center quetiapi DA Active MO 2021-0 [facility] ne -04 [place] 00:00: d 00 [facility] Center tolterod DA Active MO 2021-0 [facility] ine -04 [place] 00:00: d 00 Medical Center latex DA Active SV 2021-0 [facility] -04 [place] 00:00: d 00 Medical Center ivabradi DA Active MO 2021-0 [facility] ne 1-04 [place] 00:00: d 00 Medical Center coconut FA Active MO 2020-0 [facility] 1-04 [place] 00:00: d 00 Medical Center Penicill DA Active SV ANAPHYLAXIS 2020-0 [facility] ins SHOCH 1- [place] 00:00: d 00 Medical Center Sulfa [...] of that medicine Ivabradi Propensi Active Rash 2019-03/2020: Meth jamie ne ty to 0-01 reports [...] High Anaphylaxis 2019-0 Uni vers ACIN INGREDI 05 ity of 00:00: [place] 00 [...] to drug CEFIXIME Allergy Active Low Rash 2017- [facility] 10-17 00:00: 00 TRAMADOL Allergy Active [...] Active 2017-09 SLE XACIN 10-17 00:00: 00 Sulfamet Propensi Active Rash 2017-09 Method i hoxazole ty to 10-17 st -Trimeth adverse 00:00: Hospita oprim reaction 00 l s to drug Cefixime Propensi Active Rash 2017-09 Method i ty to 10-17 st adverse 00:00: Hospita reaction 00 l s to drug Latex Propensi Active Rash 2017-[address] ty to 10-17 [facility] adverse 00:00: Medical reaction 00 Center s Morphine Propensi Active Anaphylaxis 2017-[address] ty to 10-17 [facility] adverse 00:00: Medical reaction 00 Center s Penicill Propensi Active Anaphylaxis 2017-[address] ins ty to 10-17 [facility] adverse 00:00: Medical reaction 00 [place] s Quetiapi Propensi Active 2017-[address] ne ty to 10-17 [facility] adverse 00:00: Medical reaction 00 Center s Sulfa Propensi Active Rash 2017-[address] (Sulfona ty to 10-17 [facility] mide adverse 00:00: Medical Antibiot reaction 00 Center [facility]) s Cefixime Propensi Active Rash 2017-09 [...] Containi reaction 00 Center ng s Products CODEINE Allergy Active 2017-09 [facility] 10-17 00:00: [...] Propensi Active Rash 2017-09 Methodi ty to 1-10 st adverse 00:00: Hospita reaction 00 l s to drug Coconut Propensi Active Rash 2018-1 Methodi Oil ty to 10 st adverse [...] Active Rash 2018-0 Methodi And ty to -12 st Iodide adverse 00:00: Hospita Containi reaction 00 l ng s to Products drug Diphenhy Propensi Active Other (See 2018-0 Me thodi dramine ty to Comments) 412 [...] 00 Medical Branch Morphine Propensi Active Anaphylaxis 2017-1 U nivers ty to 0-05 ity of adverse 00:00: [place] reaction 00 Medical s Branch Morphine Propensi Active Anaphylaxis 2017- M ethodi ty to 0 st adverse [...] Medical s Branch CIPROFLO DRUG Active SOB Univers XACIN INGREDI 04-20 ity of 00:00: [place] 00 Medical Branch QUETIAPI DRUG Active Rash 2016-0 Univers NE INGREDI 04-20 ity of FUMARATE 00:00: [place] 00 Medical Branch Quetiapi Propensi Active Rash 2016-0 Univer s ne ty to 04-20 ity of Fumarate adverse 00:00: [place] reaction 00 Medical s Branch Quetiapi Propensi Active Rash 2016- confusion Met hodi ne ty to 04-20 st adverse 00:00: Hospita reaction 00 l s to drug ALUMINUM DRUG Active High Anaphylaxis 2016- Uni vers ASPIRIN INGREDI 01-18 ity of 00:00: [place] 00 Medical Branch PENICILL DRUG Active High Anaphylaxis 20160 Uni vers IN INGREDI 01-18 ity of [...] DRUG Active High Anaphylaxis Univ ers INGREDI 4-08 ity of 00:00: [place] 00 Medical Branch [...] reaction 00 Medica l ics) s Branch Latex Propensi Active Rash 2012-09 "blisters Metho [...] Hospita reaction 00 l s to drug Penicill Propensi Active Anaphylaxis 2012-09 M ethodi ins ty to 10-20 adverse 00:00: Hospita reaction 00 l s to drug Social History Social Habit Start Date Stop Date Quantity Comments Source History SDIN [facility] History [facility] Exposure to 2022-07-10 2022-07-20 Not sure [facility] SARS-CoV-2 (event) 00:00:00 08:56:00 [facility] Cigarettes smoked 2022-04-05 2022-04-05 Univers ity of current (pack per 00:00:00 00:00:00 [facility]) - Reported Branch Cigarette 2022-04-05 2022-04-05 University of pack-years 00:00:00 00:00:00 [facility] Tobacco use and 2022-04-05 2022-04-05 Smokeless Universit y of exposure 00:00:00 00:00:00 tobacco non-user [facility] dical Branch Education 2021-03-25 2021-03-25 12 University of 00:00:00 00:00:00 [place] [facility] History SDOH 2019-10-29 2019-10-29 5 University o f Financial 00:00:00 00:00:00 [place] [facility] History SDOH Food 2019-10-29 2019-10-29 1 Univers ity of Worry 00:00:00 00:00:00 [place] [facility] History SDIN Food 2019-10-29 2019-10-29 1 Univers ity of Scarcity 00:00:00 00:00:00 [place] [facility] History SDOH 2019-10-29 2019-10-29 2 University o f Transport Med 00:00:00 00:00:00 [place] Medic al Branch History SDOH 2019-10-29 2019-10-29 2 University o f Transport Non-Med 00:00:00 00:00:00 [facility] edical Branch History SDOH 2018-09-05 2018-09-05 1 [facility] Alcohol Frequency 00:00:00 00:00:00 Hospita l Alcohol intake 2018-08-18 2018-08-18 [facility] History of tobacco 2001-05-09 Passive smoker Un iversity of use 00:00:00 [facility] Sex [birth year] At [birth year] FAVIO [place] 00:00:00 00:00:00 [facility] Center Smoking Status Start Date Stop Date Source Ex-smoker 2022-04-05 00:00:00 2022-04-05 00:00:00 Universi ty of [facility] Medications Ordered Filled Start Stop Current Ordering Indication Dosage Frequency Signature Comments Components Source Medication Medication Date Date Medication? Clinician (SIG) Name Name benzonatate 2021-09 Yes [id number] TAKE 1 Univers 100 mg 0-11 CAPSULE BY ity of capsule 00:00: MOUTH [place] THREE Medical TIMES Branch DAILY NEEDED FOR COUGH benzonatate 2021-09 Yes [id number] TAKE 1 Univers 100 mg 0-11 CAPSULE BY ity of capsule 00:00: MOUTH [place] THREE Medical TIMES Branch DAILY NEEDED FOR COUGH benzonatate 2021-09 Yes [id number] TAKE 1 Univers 100 mg 0-11 CAPSULE BY ity of capsule 00:00: MOUTH [place] THREE Medical TIMES Branch DAILY NEEDED FOR COUGH benzonatate 2021-09 Yes [id number] TAKE 1 Univers 100 mg 0-11 CAPSULE BY ity of capsule 00:00: MOUTH [place] THREE Medical TIMES Branch DAILY NEEDED FOR COUGH benzonatate 2021-09 Yes [id number] TAKE 1 Univers 100 mg 0-11 CAPSULE BY ity of capsule 00:00: MOUTH [place] THREE Medical TIMES Branch DAILY NEEDED FOR COUGH benzonatate 2021-09 Yes [id number] TAKE 1 Univers 100 mg 0-11 CAPSULE BY ity of capsule 00:00: MOUTH [place] THREE Medical TIMES Branch DAILY NEEDED FOR COUGH benzonatate 2021-09 Yes [id number] TAKE 1 Univers 100 mg 0-11 CAPSULE BY ity of capsule 00:00: MOUTH [place] THREE Medical TIMES Branch DAILY NEEDED FOR COUGH benzonatate 2021-09 Yes [id number] TAKE 1 Univers 100 mg 0-11 CAPSULE BY ity of capsule 00:00: MOUTH [place] THREE Medical TIMES Branch DAILY NEEDED FOR COUGH rosuvastati Yes 10mg Take 10 mg Univers n (CRESTOR) 9-27 by mouth ity of 10 mg 14:38: at [place] tablet 10 bedtime. Medical Branch rosuvastati 2022-0 Yes 10mg Take 10 mg Univers n (CRESTOR) 9-27 by mouth ity of 10 mg 14:38: at [place] tablet 10 bedtime. Medical Branch rosuvastati 0 Yes 10mg Take 10 mg Univers n (CRESTOR) 9-27 by mouth ity of 10 mg 14:38: at [place] tablet 10 bedtime. Medical Branch rosuvastati Yes 10mg Take 10 mg Univers n (CRESTOR) 9-27 by mouth ity of 10 mg 14:38: at [place] tablet 10 bedtime. Medical Branch rosuvastati 0 Yes 10mg Take 10 mg Univers n (CRESTOR) 9-27 by mouth ity of 10 mg 14:38: at [place] tablet 10 bedtime. Medical Branch rosuvastati Yes 10mg Take 10 mg Univers n (CRESTOR) 9-27 by mouth ity of 10 mg 14:38: at [place] tablet 10 bedtime. Medical Branch rosuvastati Yes 10mg Take 10 mg Univers n (CRESTOR) 9-27 by mouth ity of 10 mg 14:38: at [place] tablet 10 bedtime. Medical Branch rosuvastati Yes 10mg Take 10 mg Univers n (CRESTOR) 9-27 by mouth ity of 10 mg 14:38: at [place] tablet 10 bedtime. Medical Branch rosuvastati Yes 10mg Take 10 mg Univers n (CRESTOR) 9-27 by mouth ity of 10 mg 14:38: at [place] tablet 10 bedtime. Medical Branch rosuvastati Yes 10mg Take 10 mg Univers n (CRESTOR) 9-27 by mouth ity of 10 mg 14:38: at [place] tablet 10 bedtime. Medical Branch rosuvastati Yes 10mg Take 10 mg Univers n (CRESTOR) 9-27 by mouth ity of 10 mg 14:38: at [place] tablet 10 bedtime. Medical Branch rosuvastati 0 Yes 10mg Take 10 mg Univers n (CRESTOR) 9-27 by mouth ity of 10 mg 14:38: at [place] tablet 10 bedtime. Medical Branch rosuvastati 0 Yes 10mg Take 10 mg Univers n (CRESTOR) 9-27 by mouth ity of 10 mg 14:38: at [place] tablet 10 bedtime. Medical Branch rosuvastati Yes 10mg Take 10 mg Univers n (CRESTOR) 06-21 by mouth ity of 10 mg 14:38: at [place] tablet 10 bedtime. Medical Branch ketorolac 15mg 15 mg, Unive rs (TORADOL) 06-21 Slow IV ity of injection 06:15: 05:13 Push, [place] 15 mg 00 :00 ONCE, 1 Medical dose, On Branch Mon06/21/22 at 0115, GIGI albuterol Yes [id number] 2{puff} Inhale 2 Univers 90 9-22 Puffs ity of mcg/actuati 00:00: every 6 [place] as on inhaler 00 (six) Medical hours as Branch needed for Wheezing or Shortness of Breath. albuterol Yes [id number] 2{puff} Inhale 2 Univers 90 9-22 Puffs ity of mcg/actuati 00:00: every 6 [place] as on inhaler 00 (six) Medical hours as Branch needed for Wheezing or Shortness of Breath. albuterol Yes [id number] 2{puff} Inhale 2 Univers 90 9-22 Puffs ity of mcg/actuati 00:00: every 6 [place] as on inhaler 00 (six) Medical hours as Branch needed for Wheezing or Shortness of Breath. albuterol Yes [id number] 2{puff} Inhale 2 Univers 90 9-22 Puffs ity of mcg/actuati 00:00: every 6 [place] as on inhaler 00 (six) Medical hours as Branch needed for Wheezing or Shortness of Breath. albuterol Yes [id number] 2{puff} Inhale 2 Univers 90 9-22 Puffs ity of mcg/actuati 00:00: every 6 [place] as on inhaler 00 (six) Medical hours as Branch needed for Wheezing or Shortness of Breath. albuterol Yes [id number] 2{puff} Inhale 2 Univers 90 9-22 Puffs ity of mcg/actuati 00:00: every 6 [place] as on inhaler 00 (six) Medical hours as Branch needed for Wheezing or Shortness of Breath. albuterol Yes [id number] 2{puff} Inhale 2 Univers 90 9-22 Puffs ity of mcg/actuati 00:00: every 6 [place] as on inhaler 00 (six) Medical hours as Branch needed for Wheezing or Shortness of Breath. albuterol Yes [id number] 2{puff} Inhale 2 Univers 90 9-22 Puffs ity of mcg/actuati 00:00: every 6 [place] as on inhaler 00 (six) Medical hours as Branch needed for Wheezing or Shortness of Breath. albuterol Yes [id number] 2{puff} Inhale 2 [facility] 90 9-22 Puffs ity of mcg/actuati 00:00: every 6 [place] as on inhaler 00 (six) Medical hours as Branch needed for Wheezing or Shortness of Breath. albuterol Yes [id number] 2{puff} Inhale 2 [facility] 90 9-22 Puffs ity of mcg/actuati 00:00: every 6 [place] as on inhaler 00 (six) Medical hours as Branch needed for Wheezing or Shortness of Breath. albuterol Yes [id number] 2{puff} Inhale 2 [facility] 90 9-22 Puffs ity of mcg/actuati 00:00: every 6 [place] as on inhaler 00 (six) Medical hours as Branch needed for Wheezing or Shortness of Breath. albuterol Yes [id number] 2{puff} Inhale 2 [facility] 90 9-22 Puffs ity of mcg/actuati 00:00: every 6 [place] as on inhaler 00 (six) Medical hours as Branch needed for Wheezing or Shortness of Breath. albuterol Yes [id number] 2{puff} Inhale 2 [facility] 90 9-22 Puffs ity of mcg/actuati 00:00: every 6 [place] as on inhaler 00 (six) Medical hours as Branch needed for Wheezing or Shortness of Breath. albuterol Yes [id number] 2{puff} Inhale 2 [facility] 90 9-22 Puffs ity of mcg/actuati 00:00: every 6 [place] as on inhaler 00 (six) Medical hours as Branch needed for Wheezing or Shortness of Breath. albuterol Yes [id number] 2{puff} Inhale 2 [facility] 90 9-22 Puffs ity of mcg/actuati 00:00: every 6 [place] as on inhaler 00 (six) Medical hours as Branch needed for Wheezing or Shortness of Breath. fluticasone 0 Yes [id number] 1{puff} Inhale 1 [facility] furoate-natan 9-13 Puff ity of anteroL 00:00: daily. [address]) Branch 200-25 mcg/dose DsDv fluticasone 0 Yes [id number] 1{puff} Inhale 1 [facility] furoate-natan 9-13 Puff ity of anteroL 00:00: daily. [address]) Branch 200-25 mcg/dose DsDv fluticasone 0 Yes [id number] 1{puff} Inhale 1 [facility] furoate-natan 9-13 Puff ity of anteroL 00:00: daily. [address]) Branch 200-25 mcg/dose DsDv fluticasone 2021-0 Yes [id number] 1{puff} Inhale 1 [facility] furoate-natan 9-13 Puff ity of anteroL 00:00: daily. [place] ([address]) Branch 200-25 mcg/dose DsDv fluticasone 2021-0 Yes [id number] 1{puff} Inhale 1 [facility] furoate-natan 9-13 Puff ity of anteroL 00:00: daily. [address]) Branch 200-25 mcg/dose DsDv fluticasone 2021-0 Yes [id number] 1{puff} Inhale 1 [facility] furoate-natan 9-13 Puff ity of anteroL 00:00: daily. [place] ([address]) Branch 200-25 mcg/dose DsDv fluticasone 2021-0 Yes [id number] 1{puff} Inhale 1 [facility] furoate-natan 9-13 Puff ity of anteroL 00:00: daily. [place] ([address]) Branch 200-25 mcg/dose DsDv fluticasone 2021-0 Yes [id number] 1{puff} Inhale 1 [facility] furoate-natan 9-13 Puff ity of anteroL 00:00: daily. [place] ([address]) Branch 200-25 mcg/dose DsDv fluticasone 2021-0 Yes [id number] 1{puff} Inhale 1 [facility] furoate-natan 9-13 Puff ity of anteroL 00:00: daily. [place] ([address]) Branch 200-25 mcg/dose DsDv fluticasone 2021-0 Yes [id number] 1{puff} Inhale 1 [facility] furoate-natan 9-13 Puff ity of anteroL 00:00: daily. [place] ([address]) Branch 200-25 mcg/dose DsDv fluticasone 2021-0 Yes [id number] 1{puff} Inhale 1 [facility] furoate-natan 9-13 Puff ity of anteroL 00:00: daily. [place] ([address]) Branch 200-25 mcg/dose DsDv fluticasone 2021-0 Yes [id number] 1{puff} Inhale 1 [facility] furoate-natan 9-13 Puff ity of anteroL 00:00: daily. [place] ([address]) Branch 200-25 mcg/dose DsDv fluticasone 2021-0 Yes [id number] 1{puff} Inhale 1 [facility] furoate-natan 9-13 Puff ity of anteroL 00:00: daily. [place] ([address]) Branch 200-25 mcg/dose DsDv fluticasone 2021-0 Yes [id number] 1{puff} Inhale 1 [facility] furoate-natan 9-13 Puff ity of anteroL 00:00: daily. [place] ([address]) Branch 200-25 mcg/dose DsDv fluticasone 2021-0 Yes [id number] 1{puff} Inhale 1 [facility] furoate-natan 9-13 Puff ity of anteroL 00:00: daily. [place] ([address]) Branch 200-25 mcg/dose DsDv fluticasone 2-0 Yes [id number] 1{puff} Inhale 1 [facility] furoate-natan 9-13 Puff ity of anteroL 00:00: daily. [place] ([address]) Branch 200-25 mcg/dose DsDv fluticasone Yes [id number] 1{puff} Inhale 1 [facility] furoate-natan 9-13 Puff ity of anteroL 00:00: daily. [place] ([address]) Branch 200-25 mcg/dose DsDv fluticasone Yes [id number] 1{puff} Inhale 1 [facility] furoate-natan 9-13 Puff ity of anteroL 00:00: daily. [place] ([address]) Branch 200-25 mcg/dose DsDv fluticasone Yes [id number] 1{puff} Inhale 1 [facility] furoate-natan 9-13 Puff ity of anteroL 00:00: daily. [place] ([address]) Branch 200-25 mcg/dose DsDv fluticasone Yes [id number] 1{puff} Inhale 1 [facility] furoate-natan 9-13 Puff ity of anteroL 00:00: daily. [place] ([address]) Branch 200-25 mcg/dose DsDv fluticasone Yes [id number] 1{puff} Inhale 1 [facility] furoate-natan 9-13 Puff ity of anteroL 00:00: daily. [place] ([address]) Branch 200-25 mcg/dose DsDv levETIRAcet Yes [id number] 1000mg Take 1 [facility] am 1,000 mg 9-06 tablet by ity of tablet 00:00: mouth in [place] [address] the Medical morning Branch and 1 tablet in the evening. ubrogepant 0 Yes [id number] 100mg Take 100 [facility] (UBRELVY) 9-06 mg by ity of 100 mg Tab 00:00: mouth as [place] as 00 needed Medical (migraine) Branch . Take at onset of migraine, repeat x1 in 2h if headache remains nortriptyli 0 Yes [id number] 20mg Take 2 [facility] ne 10 mg 9-06 capsules ity of capsule 00:00: by mouth [place] [address] at Medical bedtime. Branch levETIRAcet 0 Yes [id number] 1000mg Take 1 [facility] am 1,000 mg 9-06 tablet by ity of tablet 00:00: mouth in [place] [address] the Medical morning Branch and 1 tablet in the evening. ubrogepant 2022-0 Yes [id number] 100mg Take 100 [facility] (UBRELVY) 9-06 mg by ity of 100 mg Tab 00:00: mouth as [place] 00 needed Medical (migraine) Branch . Take at onset of migraine, repeat x1 in 2h if headache remains nortriptyli 2-0 Yes [id number] 20mg Take 2 [facility] ne 10 mg 9-06 capsules ity of capsule 00:00: by mouth [place] at Medical bedtime. Branch levETIRAcet 2-0 Yes [id number] 1000mg Take 1 [facility] am 1,000 mg 9-06 tablet by ity of tablet 00:00: mouth in [place] [address] the Medical morning Branch and 1 tablet in the evening. ubrogepant 2022-0 Yes [id number] 100mg Take 100 [facility] (UBRELVY) 9-06 mg by ity of 100 mg Tab 00:00: mouth as [place] 00 needed Medical (migraine) Branch . Take at onset of migraine, repeat x1 in 2h if headache remains nortriptyli 2-0 Yes [id number] 20mg Take 2 [facility] ne 10 mg 9-06 capsules ity of capsule 00:00: by mouth [place] [address] at Medical bedtime. Branch levETIRAcet 2-0 Yes [id number] 1000mg Take 1 [facility] am 1,000 mg 9-06 tablet by ity of tablet 00:00: mouth in [place] [address] the Medical morning Branch and 1 tablet in the evening. ubrogepant 2022-0 Yes [id number] 100mg Take 100 [facility] (UBRELVY) 9-06 mg by ity of 100 mg Tab 00:00: mouth as [place] 00 needed Medical (migraine) Branch . Take at onset of migraine, repeat x1 in 2h if headache remains nortriptyli 2-0 Yes [id number] 20mg Take 2 [facility] ne 10 mg 9-06 capsules ity of capsule 00:00: by mouth [place] [address] at Medical bedtime. Branch levETIRAcet 2022-0 Yes [id number] 1000mg Take 1 [facility] am 1,000 mg 9-06 tablet by ity of tablet 00:00: mouth in [place] [address] the Medical morning Branch and 1 tablet in the evening. ubrogepant 2022-0 Yes [id number] 100mg Take 100 [facility] (UBRELVY) 9-06 mg by ity of 100 mg Tab 00:00: mouth as [place] as 00 needed Medical (migraine) Branch . Take at onset of migraine, repeat x1 in 2h if headache remains nortriptyli 2021-0 Yes [id number] 20mg Take 2 [facility] ne 10 mg 9-06 capsules ity of capsule 00:00: by mouth [place] 00 at Medical bedtime. Branch levETIRAcet 2-0 Yes [id number] 1000mg Take 1 [facility] am 1,000 mg 9-06 tablet by ity of tablet 00:00: mouth in [place] 00 the Medical morning Branch and 1 tablet in the evening. ubrogepant 2-0 Yes [id number] 100mg Take 100 [facility] (UBRELVY) 9-06 mg by ity of 100 mg Tab 00:00: mouth as [place] 00 needed Medical (migraine) Branch . Take at onset of migraine, repeat x1 in 2h if headache remains nortriptyli 2021-0 Yes [id number] 20mg Take 2 [facility] ne 10 mg 9-06 capsules ity of capsule 00:00: by mouth [place] 00 at Medical bedtime. Branch levETIRAcet 2021-0 Yes [id number] 1000mg Take 1 [facility] am 1,000 mg 9-06 tablet by ity of tablet 00:00: mouth in [place] the Medical morning Branch and 1 tablet in the evening. ubrogepant 2-0 Yes [id number] 100mg Take 100 [facility] (UBRELVY) 9-06 mg by ity of 100 mg Tab 00:00: mouth as [place] 00 needed Medical (migraine) Branch . Take at onset of migraine, repeat x1 in 2h if headache remains nortriptyli 2021-0 Yes [id number] 20mg Take 2 [facility] ne 10 mg 9-06 capsules ity of capsule 00:00: by mouth [place] [address] at Medical bedtime. Branch levETIRAcet 2-0 Yes [id number] 1000mg Take 1 [facility] am 1,000 mg 9-06 tablet by ity of tablet 00:00: mouth in [place] [address] the Medical morning Branch and 1 tablet in the evening. ubrogepant 2022-0 Yes [id number] 100mg Take 100 [facility] (UBRELVY) 9-06 mg by ity of 100 mg Tab 00:00: mouth as [place] as 00 needed Medical (migraine) Branch . Take at onset of migraine, repeat x1 in 2h if headache remains nortriptyli 2-0 Yes [id number] 20mg Take 2 [facility] ne 10 mg 9-06 capsules ity of capsule 00:00: by mouth [place] [address] at Medical bedtime. Branch levETIRAcet 2-0 Yes [id number] 1000mg Take 1 [facility] am 1,000 mg 9-06 tablet by ity of tablet 00:00: mouth in [place] 00 the Medical morning Branch and 1 tablet in the evening. ubrogepant 2022-0 Yes [id number] 100mg Take 100 [facility] (UBRELVY) 9-06 mg by ity of 100 mg Tab 00:00: mouth as [place] as 00 needed Medical (migraine) Branch . Take at onset of migraine, repeat x1 in 2h if headache remains nortriptyli 2021-0 Yes [id number] 20mg Take 2 [facility] ne 10 mg 9-06 capsules ity of capsule 00:00: by mouth [place] [address] at Medical bedtime. Branch levETIRAcet 2-0 Yes [id number] 1000mg Take 1 [facility] am 1,000 mg 9-06 tablet by ity of tablet 00:00: mouth in [place] [address] the Medical morning Branch and 1 tablet in the evening. ubrogepant 2022-0 Yes [id number] 100mg Take 100 [facility] (UBRELVY) 9-06 mg by ity of 100 mg Tab 00:00: mouth as [place] as 00 needed Medical (migraine) Branch . Take at onset of migraine, repeat x1 in 2h if headache remains nortriptyli 2-0 Yes [id number] 20mg Take 2 [facility] ne 10 mg 9-06 capsules ity of capsule 00:00: by mouth [place] [address] at Medical bedtime. Branch levETIRAcet 2-0 Yes [id number] 1000mg Take 1 [facility] am 1,000 mg 9-06 tablet by ity of tablet 00:00: mouth in [place] [address] the Medical morning Branch and 1 tablet in the evening. ubrogepant 2022-0 Yes [id number] 100mg Take 100 [facility] (UBRELVY) 9-06 mg by ity of 100 mg Tab 00:00: mouth as [place] 00 needed Medical (migraine) Branch . Take at onset of migraine, repeat x1 in 2h if headache remains nortriptyli 2-0 Yes [id number] 20mg Take 2 [facility] ne 10 mg 9-06 capsules ity of capsule 00:00: by mouth [place] [address] at Medical bedtime. Branch levETIRAcet 2021-0 Yes [id number] 1000mg Take 1 [facility] am 1,000 mg 9-06 tablet by ity of tablet 00:00: mouth in [place] [address] the Medical morning Branch and 1 tablet in the evening. ubrogepant 2022-0 Yes [id number] 100mg Take 100 [facility] (UBRELVY) 9-06 mg by ity of 100 mg Tab 00:00: mouth as [place] 00 needed Medical (migraine) Branch . Take at onset of migraine, repeat x1 in 2h if headache remains nortriptyli 2021-0 Yes [id number] 20mg Take 2 [facility] ne 10 mg 9-06 capsules ity of capsule 00:00: by mouth [place] [address] at Medical bedtime. Branch levETIRAcet 2-0 Yes [id number] 1000mg Take 1 [facility] am 1,000 mg 9-06 tablet by ity of tablet 00:00: mouth in [place] [address] the Medical morning Branch and 1 tablet in the evening. ubrogepant 2-0 Yes [id number] 100mg Take 100 [facility] (UBRELVY) 9-06 mg by ity of 100 mg Tab 00:00: mouth as [place] 00 needed Medical (migraine) Branch . Take at onset of migraine, repeat x1 in 2h if headache remains nortriptyli 2021-0 Yes [id number] 20mg Take 2 [facility] ne 10 mg 9-06 capsules ity of capsule 00:00: by mouth [place] [address] at Medical bedtime. Branch levETIRAcet 2-0 Yes [id number] 1000mg Take 1 [facility] am 1,000 mg 9-06 tablet by ity of tablet 00:00: mouth in [place] [address] the Medical morning Branch and 1 tablet in the evening. ubrogepant 2022-0 Yes [id number] 100mg Take 100 [facility] (UBRELVY) 9-06 mg by ity of 100 mg Tab 00:00: mouth as [place] 00 needed Medical (migraine) Branch . Take at onset of migraine, repeat x1 in 2h if headache remains nortriptyli 2-0 Yes [id number] 20mg Take 2 [facility] ne 10 mg 9-06 capsules ity of capsule 00:00: by mouth [place] at Medical bedtime. Branch levETIRAcet 2-0 Yes [id number] 1000mg Take 1 [facility] am 1,000 mg 9-06 tablet by ity of tablet 00:00: mouth in [place] the Medical morning Branch and 1 tablet in the evening. ubrogepant 2022-0 Yes [id number] 100mg Take 100 [facility] (UBRELVY) 9-06 mg by ity of 100 mg Tab 00:00: mouth as [place] 00 needed Medical (migraine) Branch . Take at onset of migraine, repeat x1 in 2h if headache remains nortriptyli 2021-0 Yes [id number] 20mg Take 2 [facility] ne 10 mg 9-06 capsules ity of capsule 00:00: by mouth [place] at Medical bedtime. Branch levETIRAcet 2-0 Yes [id number] 1000mg Take 1 [facility] am 1,000 mg 9-06 tablet by ity of tablet 00:00: mouth in [place] the Medical morning Branch and 1 tablet in the evening. ubrogepant 2022-0 Yes [id number] 100mg Take 100 [facility] (UBRELVY) 9-06 mg by ity of 100 mg Tab 00:00: mouth as [place] 00 needed Medical (migraine) Branch . Take at onset of migraine, repeat x1 in 2h if headache remains nortriptyli 2021-0 Yes [id number] 20mg Take 2 [facility] ne 10 mg 9-06 capsules ity of capsule 00:00: by mouth [place] at Medical bedtime. Branch levETIRAcet 2-0 Yes [id number] 1000mg Take 1 [facility] am 1,000 mg 9-06 tablet by ity of tablet 00:00: mouth in [place] [address] the Medical morning Branch and 1 tablet in the evening. ubrogepant 2022-0 Yes [id number] 100mg Take 100 [facility] (UBRELVY) 9-06 mg by ity of 100 mg Tab 00:00: mouth as [place] as 00 needed Medical (migraine) Branch . Take at onset of migraine, repeat x1 in 2h if headache remains nortriptyli 2-0 Yes [id number] 20mg Take 2 [facility] ne 10 mg 9-06 capsules ity of capsule 00:00: by mouth [place] [address] at Medical bedtime. Branch levETIRAcet 2022-0 Yes [id number] 1000mg Take 1 [facility] am 1,000 mg 9-06 tablet by ity of tablet 00:00: mouth in [place] 00 the Medical morning Branch and 1 tablet in the evening. ubrogepant Yes [id number] 100mg Take 100 [facility] (UBRELVY) 9-06 mg by ity of 100 mg Tab 00:00: mouth as [place] 00 needed Medical (migraine) Branch . Take at onset of migraine, repeat x1 in 2h if headache remains nortriptyli Yes [id number] 20mg Take 2 [facility] ne 10 mg 9-06 capsules ity of capsule 00:00: by mouth [place] 00 at Medical bedtime. Branch rosuvastati Yes [...] at [place] tablet 35 bedtime. Medical Branch ALPRAZolam Yes [id number] .25mg Take 0.25 [facility] 0.25 mg 8-12 mg by ity of tablet 13:33: mouth at [place] 09 bedtime as Medical needed. Branch pregabalin 2021-0 Yes 50mg Take 50 mg U nivers 50 mg 8-12 by mouth ity of capsule 13:33: at [place] 09 bedtime. Medical Branch ALPRAZolam 2021-0 Yes [id number] .25mg Take 0.25 [facility] 0.25 mg 8-12 mg by ity of tablet 13:33: mouth at [place] 09 bedtime as Medical needed. Branch pregabalin 2021-0 Yes 50mg Take 50 mg U nivers 50 mg 8-12 by mouth ity of capsule 13:33: at [place] 09 bedtime. Medical Branch ALPRAZolam 2021-0 Yes [id number] .25mg Take 0.25 [facility] 0.25 mg 8-12 mg by ity of tablet 13:33: mouth at [place] 09 bedtime as Medical needed. Branch pregabalin 2021-0 Yes 50mg Take 50 mg U nivers 50 mg 8-12 by mouth ity of capsule 13:33: at [place] [address] bedtime. Medical Branch ALPRAZolam 2021-0 Yes [id number] .25mg Take 0.25 [facility] 0.25 mg 8-12 mg by ity of tablet 13:33: mouth at [place] 09 bedtime as Medical needed. Branch pregabalin 2021-0 Yes 50mg Take 50 mg U nivers 50 mg 8-12 by mouth ity of capsule 13:33: at [place] [address] bedtime. Medical Branch ALPRAZolam 2021-0 Yes [id number] .25mg Take 0.25 [facility] 0.25 mg 8-12 mg by ity of tablet 13:33: mouth at [place] [address] bedtime as Medical needed. Branch pregabalin 2021-0 Yes 50mg Take 50 mg U nivers 50 mg 8-12 by mouth ity of capsule 13:33: at [place] 09 bedtime. Medical Branch ALPRAZolam 2021-0 Yes [id number] .25mg Take 0.25 [facility] 0.25 mg 8-12 mg by ity of tablet 13:33: mouth at [place] 09 bedtime as Medical needed. Branch pregabalin 2021-0 Yes 50mg Take 50 mg U nivers 50 mg 8-12 by mouth ity of capsule 13:33: at [place] 09 bedtime. Medical Branch ALPRAZolam 2021-0 Yes [id number] .25mg Take 0.25 [facility] 0.25 mg 8-12 mg by ity of tablet 13:33: mouth at [place] 09 bedtime as Medical needed. Branch pregabalin 2021-0 Yes 50mg Take 50 mg U nivers 50 mg 8-12 by mouth ity of capsule 13:33: at [place] [address] bedtime. Medical Branch ALPRAZolam 2021-0 Yes [id number] .25mg Take 0.25 [facility] 0.25 mg 8-12 mg by ity of tablet 13:33: mouth at [place] [address] bedtime as Medical needed. Branch pregabalin 2021-0 Yes 50mg Take 50 mg U nivers 50 mg 8-12 by mouth ity of capsule 13:33: at [place] [address] bedtime. Medical Branch ALPRAZolam 2021-0 Yes [id number] .25mg Take 0.25 [facility] 0.25 mg 8-12 mg by ity of tablet 13:33: mouth at [place] [address] bedtime as Medical needed. Branch pregabalin 2021-0 Yes 50mg Take 50 mg U nivers 50 mg 8-12 by mouth ity of capsule 13:33: at [place] [address] bedtime. Medical Branch ALPRAZolam 2021-0 Yes [id number] .25mg Take 0.25 [facility] 0.25 mg 8-12 mg by ity of tablet 13:33: mouth at [place] [address] bedtime as Medical needed. Branch pregabalin 2021-0 Yes 50mg Take 50 mg U nivers 50 mg 8-12 by mouth ity of capsule 13:33: at [place] [address] bedtime. Medical Branch ALPRAZolam 2021-0 Yes [id number] .25mg Take 0.25 [facility] 0.25 mg 8-12 mg by ity of tablet 13:33: mouth at [place] [address] bedtime as Medical needed. Branch pregabalin 2021-0 Yes 50mg Take 50 mg U nivers 50 mg 8-12 by mouth ity of capsule 13:33: at [place] [address] bedtime. Medical Branch ALPRAZolam 2021-0 Yes [id number] .25mg Take 0.25 [facility] 0.25 mg 8-12 mg by ity of tablet 13:33: mouth at [place] [address] bedtime as Medical needed. Branch pregabalin 2021-0 Yes 50mg Take 50 mg U nivers 50 mg 8-12 by mouth ity of capsule 13:33: at [place] [address] bedtime. Medical Branch ALPRAZolam 2021-0 Yes [id number] .25mg Take 0.25 [facility] 0.25 mg 8-12 mg by ity of tablet 13:33: mouth at [place] 09 bedtime as Medical needed. Branch pregabalin 2021-0 Yes 50mg Take 50 mg U nivers 50 mg 8-12 by mouth ity of capsule 13:33: at [place] 09 bedtime. Medical Branch ALPRAZolam 2021-0 Yes [id number] .25mg Take 0.25 [facility] 0.25 mg 8-12 mg by ity of tablet 13:33: mouth at [place] 09 bedtime as Medical needed. Branch pregabalin 2021-0 Yes 50mg Take 50 mg U nivers 50 mg 8-12 by mouth ity of capsule 13:33: at [place] 09 bedtime. Medical Branch ALPRAZolam 2021-0 Yes [id number] .25mg Take 0.25 [facility] 0.25 mg 8-12 mg by ity of tablet 13:33: mouth at [place] 09 bedtime as Medical needed. Branch pregabalin 2021-0 Yes 50mg Take 50 mg U nivers 50 mg 8-12 by mouth ity of capsule 13:33: at [place] 09 bedtime. Medical Branch ALPRAZolam 2021-0 Yes [id number] .25mg Take 0.25 [facility] 0.25 mg 8-12 mg by ity of tablet 13:33: mouth at [place] 09 bedtime as Medical needed. Branch pregabalin 2021-0 Yes 50mg Take 50 mg U nivers 50 mg 8-12 by mouth ity of capsule 13:33: at [place] 09 bedtime. Medical Branch ALPRAZolam 2021-0 Yes [id number] .25mg Take 0.25 [facility] 0.25 mg 8-12 mg by ity of tablet 13:33: mouth at [place] 09 bedtime as Medical needed. Branch pregabalin 2021-0 Yes 50mg Take 50 mg U nivers 50 mg 8-12 by mouth ity of capsule 13:33: at [place] 09 bedtime. Medical Branch ALPRAZolam 2021-0 Yes [id number] .25mg Take 0.25 [facility] 0.25 mg 8-12 mg by ity of tablet 13:33: mouth at [place] 09 bedtime as Medical needed. Branch pregabalin 2021-0 Yes 50mg Take 50 mg U nivers 50 mg 8-12 by mouth ity of capsule 13:33: at [place] [address] bedtime. Medical Branch ALPRAZolam 2021-0 Yes [id number] .25mg Take 0.25 [facility] 0.25 mg 8-12 mg by ity of tablet 13:33: mouth at [place] 09 bedtime as Medical needed. Branch pregabalin 2021-0 Yes 50mg Take 50 mg U nivers 50 mg 8-12 by mouth ity of capsule 13:33: at [place] [address] bedtime. Medical Branch ALPRAZolam 2021-0 Yes [id number] .25mg Take 0.25 [facility] 0.25 mg 8-12 mg by ity of tablet 13:33: mouth at [place] [address] bedtime as Medical needed. Branch pregabalin 2021-0 Yes 50mg Take 50 mg U nivers 50 mg 8-12 by mouth ity of capsule 13:33: at [place] [address] bedtime. Medical Branch ALPRAZolam 2021-0 Yes [id number] .25mg Take 0.25 [facility] 0.25 mg 8-12 mg by ity of tablet 13:33: mouth at [place] [address] bedtime as Medical needed. Branch pregabalin 2021-0 Yes 50mg Take 50 mg U nivers 50 mg 8-12 by mouth ity of capsule 13:33: at [place] [address] bedtime. Medical Branch tiotropium 0 Yes 1{puff} Inhale 1 [facility] bromide 8-12 Puff ity of (SPIRIVA 00:00: daily. [place] RESPIMAT) 00 Medical 2.5 Branch mcg/actuati on Mist tiotropium 0 Yes 1{puff} Inhale 1 [facility] bromide 8-12 Puff ity of (SPIRIVA 00:00: daily. [place] RESPIMAT) 00 Medical 2.5 Branch mcg/actuati on Mist tiotropium 2021-0 Yes 1{puff} Inhale 1 [facility] bromide 8-12 Puff ity of (SPIRIVA 00:00: daily. [place] RESPIMAT) 00 Medical 2.5 Branch mcg/actuati on Mist tiotropium 0 Yes 1{puff} Inhale 1 [facility] bromide 8-12 Puff ity of (SPIRIVA 00:00: daily. [place] RESPIMAT) 00 Medical 2.5 Branch mcg/actuati on Mist tiotropium 2021-0 Yes 1{puff} Inhale 1 [facility] bromide 8-12 Puff ity of (SPIRIVA 00:00: daily. [place] RESPIMAT) 00 Medical 2.5 Branch mcg/actuati on Mist tiotropium 2021-0 Yes 1{puff} Inhale 1 [facility] bromide 8-12 Puff ity of (SPIRIVA 00:00: daily. [place] RESPIMAT) 00 Medical 2.5 Branch mcg/actuati on Mist tiotropium 2021-0 Yes 1{puff} Inhale 1 [facility] bromide 8-12 Puff ity of (SPIRIVA 00:00: daily. [place] RESPIMAT) 00 Medical 2.5 Branch mcg/actuati on Mist tiotropium 2021-0 Yes 1{puff} Inhale 1 [facility] bromide 8-12 Puff ity of (SPIRIVA 00:00: daily. [place] RESPIMAT) 00 Medical 2.5 Branch mcg/actuati on Mist tiotropium 2021-0 Yes 1{puff} Inhale 1 [facility] bromide 8-12 Puff ity of (SPIRIVA 00:00: daily. [place] RESPIMAT) 00 Medical 2.5 Branch mcg/actuati on Mist tiotropium 2021-0 Yes 1{puff} Inhale 1 [facility] bromide 8-12 Puff ity of (SPIRIVA 00:00: daily. [place] RESPIMAT) 00 Medical 2.5 Branch mcg/actuati on Mist tiotropium 2021-0 Yes 1{puff} Inhale 1 [facility] bromide 8-12 Puff ity of (SPIRIVA 00:00: daily. [place] RESPIMAT) 00 Medical 2.5 Branch mcg/actuati on Mist tiotropium 2021-0 Yes 1{puff} Inhale 1 [facility] bromide 8-12 Puff ity of (SPIRIVA 00:00: daily. [place] RESPIMAT) 00 Medical 2.5 Branch mcg/actuati on Mist tiotropium 2021-0 Yes 1{puff} Inhale 1 [facility] bromide 8-12 Puff ity of (SPIRIVA 00:00: daily. [place] RESPIMAT) 00 Medical 2.5 Branch mcg/actuati on Mist tiotropium 2021-0 Yes 1{puff} Inhale 1 [facility] bromide 8-12 Puff ity of (SPIRIVA 00:00: daily. [place] RESPIMAT) 00 Medical 2.5 Branch mcg/actuati on Mist tiotropium 2-0 Yes 1{puff} Inhale 1 [facility] bromide 8-12 Puff ity of (SPIRIVA 00:00: daily. [place] RESPIMAT) 00 Medical 2.5 Branch mcg/actuati on Mist tiotropium 2-0 Yes 1{puff} Inhale 1 [facility] bromide 8-12 Puff ity of (SPIRIVA 00:00: daily. [place] RESPIMAT) 00 Medical 2.5 Branch mcg/actuati on Mist tiotropium 2-0 Yes 1{puff} Inhale 1 [facility] bromide 8-12 Puff ity of (SPIRIVA 00:00: daily. [place] RESPIMAT) 00 Medical 2.5 Branch mcg/actuati on Mist tiotropium 2-0 Yes 1{puff} Inhale 1 [facility] bromide 8-12 Puff ity of (SPIRIVA 00:00: daily. [place] RESPIMAT) 00 Medical 2.5 Branch mcg/actuati on [place] tiotropium 2021-0 Yes 1{puff} Inhale 1 [facility] bromide 8-12 Puff ity of (SPIRIVA 00:00: daily. [place] RESPIMAT) 00 Medical 2.5 Branch mcg/actuati on Mist tiotropium 2-0 Yes 1{puff} Inhale 1 [facility] bromide 8-12 Puff ity of (SPIRIVA 00:00: daily. [place] RESPIMAT) 00 Medical 2.5 Branch mcg/actuati on Mist tiotropium 2-0 Yes 1{puff} Inhale 1 [facility] bromide 8-12 Puff ity of (SPIRIVA 00:00: daily. [place] RESPIMAT) 00 Medical 2.5 Branch mcg/actuati on Mist esomeprazol 2-0 Yes 20mg Take 20 mg [facility] e 20 mg 7-25 by mouth 2 ity of capsule 18:00: (two) [place] 13 times Medical daily Branch before breakfast and dinner. esomeprazol 2022-0 Yes 20mg Take 20 mg [facility] e 20 mg 7-25 by mouth 2 ity of capsule 18:00: (two) [place] 13 times Medical daily Branch before breakfast and dinner. esomeprazol 2-0 Yes 20mg Take 20 mg [facility] e 20 mg 7-25 by mouth 2 ity of capsule 18:00: (two) [place] 13 times Medical daily Branch before breakfast and dinner. esomeprazol 2022-0 Yes 20mg Take 20 mg [facility] e 20 mg 7-25 by mouth 2 ity of capsule 18:00: (two) [place] 13 times Medical daily Branch before breakfast and dinner. esomeprazol 2022-0 Yes 20mg Take 20 mg [facility] e 20 mg 7-25 by mouth 2 ity of capsule 18:00: (two) [place] 13 times Medical daily Branch before breakfast and dinner. esomeprazol 2022-0 Yes 20mg Take 20 mg [facility] e 20 mg 7-25 by mouth 2 ity of capsule 18:00: (two) [place] 13 times Medical daily Branch before breakfast and dinner. esomeprazol 2022-0 Yes 20mg Take 20 mg [facility] e 20 mg 7-25 by mouth 2 ity of capsule 18:00: (two) [place] 13 times Medical daily Branch before breakfast and dinner. esomeprazol 2022-0 Yes 20mg Take 20 mg [facility] e 20 mg 7-25 by mouth 2 ity of capsule 18:00: (two) [place] 13 times Medical daily Branch before breakfast and dinner. esomeprazol 2022-0 Yes 20mg Take 20 mg [facility] e 20 mg 7-25 by mouth 2 ity of capsule 18:00: (two) [place] 13 times Medical daily Branch before breakfast and dinner. esomeprazol 2022-0 Yes 20mg Take 20 mg [facility] e 20 mg 7-25 by mouth 2 ity of capsule 18:00: (two) [place] 13 times Medical daily Branch before breakfast and dinner. esomeprazol 2022-0 Yes 20mg Take 20 mg [facility] e 20 mg 7-25 by mouth 2 ity of capsule 18:00: (two) [place] 13 times Medical daily Branch before breakfast and dinner. esomeprazol 2022-0 Yes 20mg Take 20 mg [facility] e 20 mg 7-25 by mouth 2 ity of capsule 18:00: (two) [place] 13 times Medical daily Branch before breakfast and dinner. esomeprazol 2022-0 Yes 20mg Take 20 mg [facility] e 20 mg 7-25 by mouth 2 ity of capsule 18:00: (two) [place] 13 times Medical daily Branch before breakfast and dinner. esomeprazol 2022-0 Yes 20mg Take 20 mg [facility] e 20 mg 7-25 by mouth 2 ity of capsule 18:00: (two) [place] 13 times Medical daily Branch before breakfast and dinner. esomeprazol 2022-0 Yes 20mg Take 20 mg [facility] e 20 mg 7-25 by mouth 2 ity of capsule 18:00: (two) [place] 13 times Medical daily Branch before breakfast and dinner. esomeprazol 2022-0 Yes 20mg Take 20 mg [facility] e 20 mg 7-25 by mouth 2 ity of capsule 18:00: (two) [place] 13 times Medical daily Branch before breakfast and dinner. esomeprazol 2022-0 Yes 20mg Take 20 mg [facility] e 20 mg 7-25 by mouth 2 ity of capsule 18:00: (two) [place] 13 times Medical daily Branch before breakfast and dinner. esomeprazol 2022-0 Yes 20mg Take 20 mg [facility] e 20 mg 7-25 by mouth 2 ity of capsule 18:00: (two) [place] 13 times Medical daily Branch before breakfast and dinner. esomeprazol 2022-0 Yes 20mg Take 20 mg [facility] e 20 mg 7-25 by mouth 2 ity of capsule 18:00: (two) [place] [id number] times Medical daily Branch before breakfast and dinner. esomeprazol 2022-0 Yes 20mg Take 20 mg [facility] e 20 mg 7-25 by mouth 2 ity of capsule 18:00: (two) [place] 13 times Medical daily Branch before breakfast and dinner. esomeprazol 2022-0 Yes 20mg Take 20 mg [facility] e 20 mg 7-25 by mouth 2 ity of capsule 18:00: (two) [place] 13 times Medical daily Branch before breakfast and dinner. roflumilast 2-0 Yes [id number] 250ug Take 250 [facility] (DALIRESP) 7-25 mcg by ity of 250 mcg Tab 00:00: mouth [place] 00 daily. Medical Branch carvediloL 2-0 Yes [id number] 12.5mg Take 1 [facility] 12.5 mg 7-25 tablet by ity of tablet 00:00: mouth in [place] [id number] the Medical morning Branch and 1 tablet in the evening. Take with meals. roflumilast 0 Yes [id number] 250ug Take 250 [facility] (DALIRESP) 7-25 mcg by ity of 250 mcg Tab 00:00: mouth [place] 00 daily. Medical Branch carvediloL 0 Yes [id number] 12.5mg Take 1 [facility] 12.5 mg 7-25 tablet by ity of tablet 00:00: mouth in [place] 00 the Medical morning Branch and 1 tablet in the evening. Take with meals. roflumilast 0 Yes [id number] 250ug Take 250 [facility] (DALIRESP) 7-25 mcg by ity of 250 mcg Tab 00:00: mouth [place] 00 daily. Medical Branch carvediloL 0 Yes [id number] 12.5mg Take 1 [facility] 12.5 mg 7-25 tablet by ity of tablet 00:00: mouth in [place] 00 the Medical morning Branch and 1 tablet in the evening. Take with meals. roflumilast 0 Yes [id number] 250ug Take 250 [facility] (DALIRESP) 7-25 mcg by ity of 250 mcg Tab 00:00: mouth [place] 00 daily. Medical Branch carvediloL 0 Yes [id number] 12.5mg Take 1 [facility] 12.5 mg 7-25 tablet by ity of tablet 00:00: mouth in [place] 00 the Medical morning Branch and 1 tablet in the evening. Take with meals. roflumilast 0 Yes [id number] 250ug Take 250 [facility] (DALIRESP) 7-25 mcg by ity of 250 mcg Tab 00:00: mouth [place] 00 daily. Medical Branch carvediloL 0 Yes [id number] 12.5mg Take 1 [facility] 12.5 mg 7-25 tablet by ity of tablet 00:00: mouth in [place] 00 the Medical morning Branch and 1 tablet in the evening. Take with meals. roflumilast 2021-0 Yes [id number] 250ug Take 250 [facility] (DALIRESP) 7-25 mcg by ity of 250 mcg Tab 00:00: mouth [place] 00 daily. Medical Branch carvediloL 0 Yes [id number] 12.5mg Take 1 [facility] 12.5 mg 7-25 tablet by ity of tablet 00:00: mouth in [place] 00 the Medical morning Branch and 1 tablet in the evening. Take with meals. roflumilast 2021-0 Yes [id number] 250ug Take 250 [facility] (DALIRESP) 7-25 mcg by ity of 250 mcg Tab 00:00: mouth [place] 00 daily. Medical Branch carvediloL 2021-0 Yes [id number] 12.5mg Take 1 [facility] 12.5 mg 7-25 tablet by ity of tablet 00:00: mouth in [place] 00 the Medical morning Branch and 1 tablet in the evening. Take with meals. roflumilast 2021-0 Yes [id number] 250ug Take 250 [facility] (DALIRESP) 7-25 mcg by ity of 250 mcg Tab 00:00: mouth [place] 00 daily. Medical Branch carvediloL 2021-0 Yes [id number] 12.5mg Take 1 [facility] 12.5 mg 7-25 tablet by ity of tablet 00:00: mouth in [place] 00 the Medical morning Branch and 1 tablet in the evening. Take with meals. roflumilast 2021-0 Yes [id number] 250ug Take 250 [facility] (DALIRESP) 7-25 mcg by ity of 250 mcg Tab 00:00: mouth [place] 00 daily. Medical Branch carvediloL 2021-0 Yes [id number] 12.5mg Take 1 [facility] 12.5 mg 7-25 tablet by ity of tablet 00:00: mouth in [place] 00 the Medical morning Branch and 1 tablet in the evening. Take with meals. roflumilast 2021-0 Yes [id number] 250ug Take 250 [facility] (DALIRESP) 7-25 mcg by ity of 250 mcg Tab 00:00: mouth [place] 00 daily. Medical Branch carvediloL 2021-0 Yes [id number] 12.5mg Take 1 [facility] 12.5 mg 7-25 tablet by ity of tablet 00:00: mouth in [place] 00 the Medical morning Branch and 1 tablet in the evening. Take with meals. roflumilast 2021-0 Yes [id number] 250ug Take 250 [facility] (DALIRESP) 7-25 mcg by ity of 250 mcg Tab 00:00: mouth [place] 00 daily. Medical Branch carvediloL 2021-0 Yes [id number] 12.5mg Take 1 [facility] 12.5 mg 7-25 tablet by ity of tablet 00:00: mouth in [place] 00 the Medical morning Branch and 1 tablet in the evening. Take with meals. roflumilast 2021-0 Yes [id number] 250ug Take 250 [facility] (DALIRESP) 7-25 mcg by ity of 250 mcg Tab 00:00: mouth [place] 00 daily. Medical Branch carvediloL 2021-0 Yes [id number] 12.5mg Take 1 [facility] 12.5 mg 7-25 tablet by ity of tablet 00:00: mouth in [place] 00 the Medical morning Branch and 1 tablet in the evening. Take with meals. roflumilast 2021-0 Yes [id number] 250ug Take 250 [facility] (DALIRESP) 7-25 mcg by ity of 250 mcg Tab 00:00: mouth [place] 00 daily. Medical Branch carvediloL 2021-0 Yes [id number] 12.5mg Take 1 [facility] 12.5 mg 7-25 tablet by ity of tablet 00:00: mouth in [place] 00 the Medical morning Branch and 1 tablet in the evening. Take with meals. roflumilast 2021-0 Yes [id number] 250ug Take 250 [facility] (DALIRESP) 7-25 mcg by ity of 250 mcg Tab 00:00: mouth [place] 00 daily. Medical Branch carvediloL 2021-0 Yes [id number] 12.5mg Take 1 [facility] 12.5 mg 7-25 tablet by ity of tablet 00:00: mouth in [place] 00 the Medical morning Branch and 1 tablet in the evening. Take with meals. roflumilast 2021-0 Yes [id number] 250ug Take 250 [facility] (DALIRESP) 7-25 mcg by ity of 250 mcg Tab 00:00: mouth [place] 00 daily. Medical Branch carvediloL 2021-0 Yes [id number] 12.5mg Take 1 [facility] 12.5 mg 7-25 tablet by ity of tablet 00:00: mouth in [place] 00 the Medical morning Branch and 1 tablet in the evening. Take with meals. roflumilast 2021-0 Yes [id number] 250ug Take 250 [facility] (DALIRESP) 7-25 mcg by ity of 250 mcg Tab 00:00: mouth [place] 00 daily. Medical Branch carvediloL 2021-0 Yes [id number] 12.5mg Take 1 [facility] 12.5 mg 7-25 tablet by ity of tablet 00:00: mouth in [place] 00 the Medical morning Branch and 1 tablet in the evening. Take with meals. roflumilast 2021-0 Yes [id number] 250ug Take 250 [facility] (DALIRESP) 7-25 mcg by ity of 250 mcg Tab 00:00: mouth [place] 00 daily. Medical Branch carvediloL 2021-0 Yes [id number] 12.5mg Take 1 [facility] 12.5 mg 7-25 tablet by ity of tablet 00:00: mouth in [place] 00 the Medical morning Branch and 1 tablet in the evening. Take with meals. roflumilast 2021-0 Yes [id number] 250ug Take 250 [facility] (DALIRESP) 7-25 mcg by ity of 250 mcg Tab 00:00: mouth [place] 00 daily. Medical Branch carvediloL 2021-0 Yes [id number] 12.5mg Take 1 [facility] 12.5 mg 7-25 tablet by ity of tablet 00:00: mouth in [place] 00 the Medical morning Branch and 1 tablet in the evening. Take with meals. roflumilast 2021-0 Yes [id number] 250ug Take 250 [facility] (DALIRESP) 7-25 mcg by ity of 250 mcg Tab 00:00: mouth [place] 00 daily. Medical Branch carvediloL 2021-0 Yes [id number] 12.5mg Take 1 [facility] 12.5 mg 7-25 tablet by ity of tablet 00:00: mouth in [place] 00 the [facility] morning Branch and 1 tablet in the evening. Take with meals. roflumilast 2021-0 Yes [id number] 250ug Take 250 [facility] (DALIRESP) 7-25 mcg by ity of 250 mcg Tab 00:00: mouth [place] 00 daily. Medical Branch carvediloL 2021-0 Yes [id number] 12.5mg Take 1 [facility] 12.5 mg 7-25 tablet by ity of tablet 00:00: mouth in [place] 00 the [facility] morning Branch and 1 tablet in the evening. Take with meals. roflumilast 2021-0 Yes [id number] 250ug Take 250 [facility] (DALIRESP) 7-25 mcg by ity of 250 mcg Tab 00:00: mouth [place] 00 daily. Medical Branch carvediloL 2021-0 Yes [id number] 12.5mg Take 1 [facility] 12.5 mg 7-25 tablet by ity of tablet 00:00: mouth in [place] 00 the Medical morning Branch and 1 tablet in the evening. Take with meals. DULoxetine 2022-0 Yes 30mg Take 1 Un[facility] rs 30 mg 6-03 capsule by ity of capsule 00:00: mouth [place] 00 daily. Medical Branch traZODone 2022-0 Yes 50mg Take 1-2 Univ ers 50 mg 6-03 tablets by ity of tablet 00:00: mouth at [place] 00 bedtime as Medical needed for Branch Insomnia. DULoxetine 2022-0 Yes 30mg Take 1 Un[facility] rs 30 mg 6-03 capsule by ity of capsule 00:00: mouth 00 daily. Medical Branch traZODone 2022-0 Yes 50mg Take 1-2 Univ ers 50 mg 6-03 tablets by ity of tablet 00:00: mouth at [place] 00 bedtime as Medical needed for Branch Insomnia. DULoxetine 2022-0 Yes 30mg Take 1 Un[facility] rs 30 mg 6-03 capsule by ity of capsule 00:00: mouth 00 daily. Medical Branch traZODone 2022-0 Yes 50mg Take 1-2 [facility] ers 50 mg 6-03 tablets by ity of tablet 00:00: mouth at [place] 00 bedtime as Medical needed for Branch Insomnia. DULoxetine 2022-0 Yes 30mg Take 1 Unive rs 30 mg 6-03 capsule by ity of capsule 00:00: mouth 00 daily. Medical Branch traZODone 2022-0 Yes 50mg Take 1-2 Univ ers 50 mg 6-03 tablets by ity of tablet 00:00: mouth at [place] 00 bedtime as Medical needed for Branch Insomnia. DULoxetine 2022-0 Yes 30mg Take 1 Unive rs 30 mg 6-03 capsule by ity of capsule 00:00: mouth 00 daily. Medical Branch traZODone 2022-0 Yes 50mg Take 1-2 [facility] ers 50 mg 6-03 tablets by ity of tablet 00:00: mouth at [place] 00 bedtime as Medical needed for Branch Insomnia. DULoxetine 2022-0 Yes 30mg Take 1 Unive rs 30 mg 6-03 capsule by ity of capsule 00:00: mouth [place] 00 daily. Medical Branch traZODone 2022-0 Yes 50mg Take 1-2 Univ ers 50 mg 6-03 tablets by ity of tablet 00:00: mouth at [place] 00 bedtime as Medical needed for Branch Insomnia. DULoxetine 2022-0 Yes 30mg Take 1 Unive rs 30 mg 6-03 capsule by ity of capsule 00:00: mouth [place] 00 daily. Medical Branch traZODone 2022-0 Yes 50mg Take 1-2 [facility] ers 50 mg 6-03 tablets by ity of tablet 00:00: mouth at [place] 00 bedtime as Medical needed for Branch Insomnia. DULoxetine 2022-0 Yes 30mg Take 1 Unive rs 30 mg 6-03 capsule by ity of capsule 00:00: mouth [place] 00 daily. Medical Branch traZODone 2022-0 Yes 50mg Take 1-2 Univ ers 50 mg 6-03 tablets by ity of tablet 00:00: mouth at [place] 00 bedtime as Medical needed for Branch Insomnia. DULoxetine 2022-0 Yes 30mg Take 1 Unive rs 30 mg 6-03 capsule by ity of capsule 00:00: mouth 00 daily. Medical Branch traZODone 2022-0 Yes 50mg Take 1-2 [facility] ers 50 mg 6-03 tablets by ity of tablet 00:00: mouth at [place] 00 bedtime as Medical needed for Branch Insomnia. DULoxetine 2022-0 Yes 30mg Take 1 Unive rs 30 mg 6-03 capsule by ity of capsule 00:00: mouth 00 daily. Medical Branch traZODone 2022-0 Yes 50mg Take 1-2 [facility] ers 50 mg 6-03 tablets by ity of tablet 00:00: mouth at [place] 00 bedtime as Medical needed for Branch Insomnia. DULoxetine 2022-0 Yes 30mg Take 1 Unive rs 30 mg 6-03 capsule by ity of capsule 00:00: mouth daily. Medical Branch traZODone 2022-0 Yes 50mg Take 1-2 Univ ers 50 mg 6-03 tablets by ity of tablet 00:00: mouth at [place] 00 bedtime as Medical needed for Branch Insomnia. DULoxetine 2022-0 Yes 30mg Take 1 Unive rs 30 mg 6-03 capsule by ity of capsule 00:00: mouth [place] 00 daily. Medical Branch traZODone 2022-0 Yes 50mg Take 1-2 [facility] ers 50 mg 6-03 tablets by ity of tablet 00:00: mouth at [place] 00 bedtime as Medical needed for Branch Insomnia. DULoxetine 2022-0 Yes 30mg Take 1 Unive rs 30 mg 6-03 capsule by ity of capsule 00:00: mouth [place] 00 daily. Medical Branch traZODone 2022-0 Yes 50mg Take 1-2 Univ ers 50 mg 6-03 tablets by ity of tablet 00:00: mouth at [place] 00 bedtime as Medical needed for Branch Insomnia. DULoxetine 2022-0 Yes 30mg Take 1 Unive rs 30 mg 6-03 capsule by ity of capsule 00:00: mouth [place] 00 daily. Medical Branch traZODone 2022-0 Yes 50mg Take 1-2 [facility] ers 50 mg 6-03 tablets by ity of tablet 00:00: mouth at [place] 00 bedtime as Medical needed for Branch Insomnia. DULoxetine 2022-0 Yes 30mg Take 1 Un[facility] rs 30 mg 6-03 capsule by ity of capsule 00:00: mouth [place] 00 daily. Medical Branch traZODone 2022-0 Yes 50mg Take 1-2 [facility] ers 50 mg 6-03 tablets by ity of tablet 00:00: mouth at [place] 00 bedtime as Medical needed for Branch Insomnia. DULoxetine 2022-0 Yes 30mg Take 1 Unive rs 30 mg 6-03 capsule by ity of capsule 00:00: mouth [place] 00 daily. Medical Branch traZODone 2022-0 Yes 50mg Take 1-2 [facility] ers 50 mg 6-03 tablets by ity of tablet 00:00: mouth at [place] 00 bedtime as Medical needed for Branch Insomnia. DULoxetine 2022-0 Yes 30mg Take 1 Unive rs 30 mg 6-03 capsule by ity of capsule 00:00: mouth [place] 00 daily. Medical Branch traZODone 2022-0 Yes 50mg Take 1-2 Univ ers 50 mg 6-03 tablets by ity of tablet 00:00: mouth at [place] 00 bedtime as Medical needed for Branch Insomnia. DULoxetine 2022-0 Yes 30mg Take 1 Unive rs 30 mg 6-03 capsule by ity of capsule 00:00: mouth [place] 00 daily. Medical Branch traZODone 2022-0 Yes 50mg Take 1-2 [facility] ers 50 mg 6-03 tablets by ity of tablet 00:00: mouth at [place] 00 bedtime as Medical needed for Branch Insomnia. DULoxetine 2022-0 Yes 30mg Take 1 Unive rs 30 mg 6-03 capsule by ity of capsule 00:00: mouth [place] 00 daily. Medical Branch traZODone 2021-0 Yes 50mg Take 1-2 [facility] ers 50 mg 6-03 tablets by ity of tablet 00:00: mouth at [place] 00 bedtime as Medical needed for Branch Insomnia. DULoxetine 2021-0 Yes 30mg Take 1 Unive rs 30 mg 6-03 capsule by ity of capsule 00:00: mouth [place] 00 daily. Medical Branch traZODone 2021-0 Yes 50mg Take 1-2 Univ ers 50 mg 6-03 tablets by ity of tablet 00:00: mouth at [place] 00 bedtime as Medical needed for Branch Insomnia. DULoxetine 2021-0 Yes 30mg Take 1 Unive rs 30 mg 6-03 capsule by ity of capsule 00:00: mouth [place] 00 daily. Medical Branch traZODone 2021-0 Yes 50mg Take 1-2 Univ ers 50 mg 6-03 tablets by ity of tablet 00:00: mouth at [place] 00 bedtime as Medical needed for Branch Insomnia. fluticasone 2021-0 2021- No [id number] 1{puff} Inhale 1 [facility] furoate-natan 6-03 09-13 Puff ity of anteroL 00:00: 00:00 daily. [place] (BREO 00 :00 Medical ELLIPTA) Branch 200-25 mcg/dose DsDv fluticasone 2021-0 2021- No [id number] 1{puff} Inhale 1 [facility] furoate-natan 6-03 09-13 Puff ity of anteroL 00:00: 00:00 daily. [place] (BREO 00 :00 Medical ELLIPTA) Branch 200-25 mcg/dose DsDv BENZONATATE 2021-0 Yes [id number] TAKE 1 [facility] 100 mg 3-04 CAPSULE BY ity of capsule 00:00: MOUTH [place] 00 THREE Medical TIMES Branch DAILY NEEDED FOR COUGH BENZONATATE 2021-0 Yes [id number] TAKE 1 [facility] 100 mg 3-04 CAPSULE BY ity of capsule 00:00: MOUTH [place] 00 THREE Medical TIMES Branch DAILY NEEDED FOR COUGH BENZONATATE 2021-0 Yes [id number] TAKE 1 [facility] 100 mg 3-04 CAPSULE BY ity of capsule 00:00: MOUTH [place] 00 THREE Medical TIMES Branch DAILY NEEDED FOR COUGH BENZONATATE 2022-0 Yes [id number] TAKE 1 [facility] 100 mg 3-04 CAPSULE BY ity of capsule 00:00: MOUTH [place] 00 THREE Medical TIMES Branch DAILY NEEDED FOR COUGH BENZONATATE 2-0 Yes [id number] TAKE 1 [facility] 100 mg 3-04 CAPSULE BY ity of capsule 00:00: MOUTH [place] 00 THREE Medical TIMES Branch DAILY NEEDED FOR COUGH BENZONATATE 2021-0 Yes [id number] TAKE 1 [facility] 100 mg 3-04 CAPSULE BY ity of capsule 00:00: MOUTH [place] 00 THREE Medical TIMES Branch DAILY NEEDED FOR COUGH BENZONATATE 2-0 Yes [id number] TAKE 1 [facility] 100 mg 3-04 CAPSULE BY ity of capsule 00:00: MOUTH 00 THREE Medical TIMES Branch DAILY NEEDED FOR COUGH BENZONATATE 2021-0 Yes [id number] TAKE 1 [facility] 100 mg 3-04 CAPSULE BY ity of capsule 00:00: MOUTH [place] 00 THREE Medical TIMES Branch DAILY NEEDED FOR COUGH BENZONATATE 2021-0 Yes [id number] TAKE 1 [facility] 100 mg 3-04 CAPSULE BY ity of capsule 00:00: MOUTH [place] 00 THREE Medical TIMES Branch DAILY NEEDED FOR COUGH BENZONATATE 2-0 Yes [id number] TAKE 1 [facility] 100 mg 3-04 CAPSULE BY ity of capsule 00:00: MOUTH [place] 00 THREE Medical TIMES Branch DAILY NEEDED FOR COUGH BENZONATATE 2-0 Yes [id number] TAKE 1 [facility] 100 mg 3-04 CAPSULE BY ity of capsule 00:00: MOUTH [place] 00 THREE Medical TIMES Branch DAILY NEEDED FOR COUGH BENZONATATE 2-0 Yes [id number] TAKE 1 [facility] 100 mg 3-04 CAPSULE BY ity of capsule 00:00: MOUTH [place] 00 THREE Medical TIMES Branch DAILY NEEDED FOR COUGH BENZONATATE 2-0 2022- No [id number] TAKE 1 [facility] 100 mg 3-04 10-11 CAPSULE BY ity of capsule 00:00: 00:00 MOUTH [place] 00 :00 THREE Medical TIMES Branch DAILY NEEDED FOR COUGH digoxin 125 2020- Yes 125ug Take 1 [facility] vers mcg [...] 00 needed. Medical Branch albuterol 2020-09 Yes [id number] 2{puff} Inhale 2 [facility] 90 1-05 Puffs ity of mcg/actuati 00:00: every 6 [place] on inhaler 00 (six) Medical hours as Branch needed for Wheezing or Shortness of Breath. albuterol 2020-09 Yes [id number] 2{puff} Inhale 2 [facility] 90 1-05 Puffs ity of mcg/actuati 00:00: every 6 [place] on inhaler 00 (six) Medical hours as Branch needed for Wheezing or Shortness of Breath. albuterol 2020-09 Yes [id number] 2{puff} Inhale 2 [facility] 90 1-05 Puffs ity of mcg/actuati 00:00: every 6 [place] on inhaler 00 (six) Medical hours as Branch needed for Wheezing or Shortness of Breath. albuterol 2020-09- No [id number] 2{puff} Inhale 2 [facility] 90 1-05 09-22 Puffs ity of mcg/actuati 00:00: 00:00 every 6 [place] on inhaler 00 :00 (six) Medical hours as Branch needed for [...] Branch daily. Indication s: Recurrent DVT fluticasone 2021-0 Yes 100ug QD 2 sprays M [facility] propionate 6-25 ([address] (FLONASE) 00:00: total) by [facility] 00 Each Nare [facility] mcg/actuati route on nasal daily. spray fluticasone 2021-0 Yes 100ug QD 2 sprays [facility] propionate 6-25 ([address] (FLONASE) 00:00: total) by [facility] 50 00 Each [facility] mcg/actuati route on nasal daily. spray fluticasone 2021-0 Yes 100ug QD 2 sprays M ethodi [...] l ophthalmic emulsion albuterol 0 Yes 1{ampul Q.[id number] Take 1 [facility] (ACCUNEB) 6-24 e} [id number] ampule by st 1.25 mg/3 22:52: 3D [...] Hospita 44 times a l day. famotidine 2021-0 Yes 20mg QD Take 20 mg M [...] l ophthalmic emulsion albuterol 0 Yes 1{ampul Q.[id number] Take 1 [facility] (ACCUNEB) 6-24 e} [id number] ampule by st 1.25 mg/3 17:52: 3D [...] day. l ophthalmic emulsion albuterol Yes 1{ampul Q.[id number] Take 1 [facility] (ACCUNEB) 6-24 e} [id number] ampule by st 1.25 mg/3 17:52: 3D [...] l ophthalmic emulsion albuterol 0 Yes 1{ampul Q.[id number] Take 1 [facility] (ACCUNEB) 6-24 e} [id number] ampule by st 1.25 mg/3 17:52: 3D nebulizati Ho spita mL 44 on 3 l nebulizer (three) solution times a day. benztropine 2020-0 Yes 1mg Q.5D Take 1 [...] 17:52: nightly. [facility] 44 l cariprazine Yes [...] day. l ophthalmic emulsion albuterol Yes 1{ampul Q.[id number] Take 1 [facility] (ACCUNEB) 6-24 e} [id number] ampule by st 1.25 mg/3 17:52: 3D nebulizati Ho [facility] mL 44 on 3 l nebulizer (three) solution times a day. ARIPiprazol 2020- No 5mg QD Take 5 mg [facility] (ABILIFY) 03-[address] 5 MG tablet 01:39: 00:00 daily. [facility] 34 :00 l ARIPiprazol 0 2020- No 10mg QD Take 10 mg [facility] (ABILIFY) -18 03-[address] 10 MG 01:39: 00:00 daily. [facility]osp[facility] tablet 25 :00 l fluticasone Yes QD Inhale 1 [facility] furoate-natan 6-[address] anteroL 00:00: s daily. [facility] (Breo 00 l Ellipta) 200-25 mcg/dose blister with device powder for inhalation albuterol 2021-0 Yes 2{puff} Q4H Inhale 2 M [facility]i (PROAIR 6-[address] HFA) 90 00:00: every 4 [facility] mcg/actuati 00 (four) l on inhaler hours as needed for wheezing. fluticasone 2020-0 Yes QD Inhale 1 [facility] furoate-natan 6-[address] anteroL 00:00: s daily. [facility] (Bre[place] 00 l Ellipta) 200-25 mcg/dose blister with device powder for inhalation albuterol 0 Yes 2{puff} Q4H Inhale 2 M [facility] (PROAIR 6-[address] HFA) 90 00:00: every 4 [facility] mcg/actuati 00 (four) l on inhaler hours as needed for wheezing. fluticasone 2020-0 Yes QD Inhale 1 [facility] furoate-natan 6-[address] anteroL 00:00: s daily. [facility] (Breo 00 l Ellipta) 200-25 mcg/dose blister with device powder for inhalation albuterol 0 Yes 2{puff} Q4H Inhale 2 M [facility]i (PROAIR 6-[address] HFA) 90 00:00: every 4 [facility] mcg/actuati 00 (four) l on inhaler hours as needed for wheezing. fluticasone 2020-0 Yes QD Inhale 1 [facility] furoate-natan 6-[address] anteroL 00:00: s daily. [facility] (Breo 00 l Ellipta) 200-25 mcg/dose blister with device powder for inhalation albuterol 0 Yes 2{puff} Q4H Inhale 2 M [facility] (PROAIR 6-[address] HFA) 90 00:00: every 4 [facility]osp[facility] mcg/actuati 00 (four) l on inhaler hours as needed for wheezing. fluticasone 2020-0 Yes QD Inhale 1 [facility] furoate-natan 6-[address] anteroL 00:00: s daily. [facility] (Breo 00 l Ellipta) 200-25 mcg/dose blister with device powder for inhalation albuterol 0 Yes 2{puff} Q4H Inhale 2 M ethodi [...] package st (Medrol, 00:00: 04:59 directions Ho spidaphne Juliocesar,) 4 mg 00 :00 l tablet [...] [facility] MG capsule 14:04: nightly . [facility] esomeprazol Yes 40mg QD [...] Cap 14:04: mouth Medica l 46 nightly. [place] ALPRAZolam Yes .25mg Take 0.25 C HI [...] MG 14:04: mouth Medical tablet 46 daily. [place] venlafaxine Yes 150mg QD Take [address] (EFFEXOR-XR 5-21 mg [facility] ) 150 MG 24 14:04: mouth Medic al hr capsule 46 daily. [place] apixaban Yes 5mg QD Take 5 mg [...] 10 mg 14:04: daily. Medical tablet 46 [place] pregabalin Yes 50mg QD Take [address] (LYRICA) 25 5-21 by mouth [facility] MG capsule 14:04: nightly . [facility] esomeprazol Yes 40mg QD [...] Cap 14:04: mouth Medica l 46 nightly. [place] ALPRAZolam Yes .25mg Take 0.25 C HI [...] MG 14:04: mouth Medical tablet 46 daily. [place] venlafaxine Yes 150mg QD Take [address] (EFFEXOR-XR [facility] 150 MG 24 14:04: mouth Medic al hr capsule 46 daily. [place] apixaban Yes 5mg QD Take [address] [facility] (ELIQUIS) 5 5-21 by mouth [facility] mg Tab 14:04: daily. Medical tablet 46 [place] levETIRAcet Yes 1000mg Q.5D Take 1,[address] [facility] am (KEPPRA) 5-21 mg [facility] 1000 MG 14:04: mouth 2 Medical tablet 46 (two) Center times daily. loratadine Yes 10mg QD Take [address] (CLARITIN) 5-21 by [facility] 10 mg 14:04: daily. Medical tablet 46 [place] pregabalin Yes 50mg QD Take 50 mg [...] Cap 14:04: mouth Medica l 46 nightly. [place] ALPRAZolam Yes .25mg Take 0.25 [facility] [...] MG 14:04: mouth Medical tablet 46 daily. [place] venlafaxine Yes 150mg QD Take [address] (EFFEXOR-XR 5-21 mg [facility] ) 150 MG 24 14:04: mouth Medic al hr capsule 46 daily. [place] apixaban Yes 5mg QD Take [address] [facility] (ELIQUIS) 5 5-21 by mouth [facility] mg Tab 14:04: daily. Medical tablet 46 [place] levETIRAcet Yes 1000mg Q.5D Take 1,[address] [facility] am (KEPPRA) 5-21 mg [facility] 1000 MG 14:04: mouth 2 Medical tablet 46 (two) Center times daily. loratadine Yes 10mg QD Take [address] (CLARITIN) 5-21 by [facility] 10 mg 14:04: daily. Medical tablet 46 [place] pregabalin Yes 50mg QD Take [address] (LYRICA) 25 5-21 by mouth Luke [facility] MG capsule 14:04: nightly . [place] dical 46 Center esomeprazol Yes 40mg QD [...] by mouth [facility] MG tablet 14:04: nightly. [facility] blane 46 Center carvediloL Yes 25mg Take [address] (COREG) 25 5-21 by mouth 2 [facility] es MG tablet 14:04: (two) Medical 46 times Center daily with breakfast and dinner. cariprazine Yes 1.5mg QD Take 1.[address] (Vraylar) 5-21 [facility] 1.5 mg Cap 14:04: mouth Medica l 46 nightly. [place] ALPRAZolam Yes .25mg Take 0.25 C [facility] [...] MG 14:04: mouth Medical tablet 46 daily. [place] venlafaxine Yes 150mg QD Take [address] (EFFEXOR-XR 5-21 [facility] ) 150 MG 24 14:04: mouth Medic al hr capsule 46 daily. [place] apixaban Yes 5mg QD Take [address] [facility] (ELIQUIS) 5 5-21 by mouth Luke [facility] mg Tab 14:04: daily. Medical tablet 46 Center levETIRAcet 2021-0 Yes 1000mg Q.5D Take 1,[address] [facility] [address] [...] Cap 14:04: mouth Medica l 46 nightly. [place] albuterol 202- No 1{ampul Q.5D Take 1 [...] St ne 5-19 05-19 mcg by Coni (SYNTHROID, 22:20: 00:00 mouth Medi blane LEVOTHROID) [...] daily as M edical 31 :00 needed. [place] ARIPiprazol 2020- No 5mg QD Take [address] [facility] (ABILIFY) 02-10 by mouth Berta es 5 MG tablet 22:18: 00:00 nightly. M edical 03 :00 [place] ARIPiprazol 2020- No 10mg QD Take [address] [facility] (ABILIFY) 02-10 by mouth Berta es 10 MG 22:17: 00:00 daily. Medical disintegrat 48 :00 Center ing tablet Immunizations Ordered Filled Immunization Date Status Comments [facility] e Immunization Name Name SARS-COV-2 COVID-19 2021-02-08 Completed Unive rsity of MODERNA 12+ YRS 00:00:00 [place] [facility] VACCINE [facility] SARS-COV-2 COVID-19 2021-02-08 Completed Unive rsity of MODERNA 12+ YRS 00:00:00 [place] [facility] VACCINE [facility] SARS-COV-2 COVID-19 2021-02-08 Completed Unive rsity of MODERNA 12+ YRS 00:00:00 [place] [facility] VACCINE [facility] SARS-COV-2 COVID-19 2021-02-08 Completed Unive rsity of MODERNA 12+ YRS 00:00:00 [place] [facility] VACCINE [facility] SARS-COV-2 COVID-19 2021-02-08 Completed Unive rsity of MODERNA 12+ YRS 00:00:00 [place] [facility] VACCINE [facility] SARS-COV-2 COVID-19 2021-02-08 Completed Unive rsity of MODERNA 12+ YRS 00:00:00 [place] [facility] VACCINE [facility] SARS-COV-2 COVID-19 2021-02-08 Completed Unive rsity of MODERNA 12+ YRS 00:00:00 [place] [facility] VACCINE [facility] SARS-COV-2 COVID-19 2021-02-08 Completed Unive rsity of MODERNA 12+ YRS 00:00:00 [place] [facility] VACCINE [facility] SARS-COV-2 COVID-19 2021-02-08 Completed Unive rsity of MODERNA 12+ YRS 00:00:00 [place] [facility] VACCINE Branch SARS-COV-2 COVID-19 2021-02-08 Completed Unive rsity of MODERNA 12+ YRS 00:00:00 [place] [facility] VACCINE [facility] SARS-COV-2 COVID-19 2021-02-08 Completed Unive rsity of MODERNA 12+ YRS 00:00:00 [place] [facility] VACCINE Branch SARS-COV-2 COVID-19 2021-02-08 Completed Unive rsity of MODERNA 12+ YRS 00:00:00 [place] [facility] VACCINE Branch SARS-COV-2 COVID-19 2021-02-08 Completed Unive rsity of MODERNA 12+ YRS 00:00:00 [place] [facility] VACCINE Branch SARS-COV-2 COVID-19 2021-02-08 Completed Unive rsity of MODERNA 12+ YRS 00:00:00 [place] [facility] VACCINE Branch SARS-COV-2 COVID-19 2021-02-08 Completed Unive rsity of MODERNA 12+ YRS 00:00:00 [place] [facility] VACCINE Branch SARS-COV-2 COVID-19 2021-02-08 Completed Unive rsity of MODERNA 12+ YRS 00:00:00 [place] [facility] VACCINE [facility] SARS-COV-2 COVID-19 2021-02-08 Completed Unive rsity of MODERNA 12+ YRS 00:00:00 [place] [facility] VACCINE Branch SARS-COV-2 COVID-19 2021-02-08 Completed Unive rsity of MODERNA 12+ YRS 00:00:00 [place] [facility] VACCINE Branch SARS-COV-2 COVID-19 2021-02-08 Completed Unive rsity of MODERNA 12+ YRS 00:00:00 [place] [facility] VACCINE Branch SARS-COV-2 COVID-19 2021-02-08 Completed Unive rsity of MODERNA 12+ YRS 00:00:00 [place] [facility] VACCINE Branch SARS-COV-2 COVID-19 2021-02-08 Completed Unive rsity of MODERNA 12+ YRS 00:00:00 [place] [facility] VACCINE Branch SARS-COV-2 COVID-19 2021-01-11 Completed Unive rsity of MODERNA 12+ YRS 00:00:00 [place] [facility] VACCINE Branch SARS-COV-2 COVID-19 2021-01-11 Completed Unive rsity of MODERNA 12+ YRS 00:00:00 [place] [facility] VACCINE Branch SARS-COV-2 COVID-19 2021-01-11 Completed Unive rsity of MODERNA 12+ YRS 00:00:00 [place] [facility] VACCINE Branch SARS-COV-2 COVID-19 2021-01-11 Completed Unive rsity of MODERNA 12+ YRS 00:00:00 [place] [facility] VACCINE Branch SARS-COV-2 COVID-19 2021-01-11 Completed Unive rsity of MODERNA 12+ YRS 00:00:00 [place] [facility] VACCINE Branch SARS-COV-2 COVID-19 2021-01-11 Completed Unive rsity of MODERNA 12+ YRS 00:00:00 [place] [facility] VACCINE Branch SARS-COV-2 COVID-19 2021-01-11 Completed Unive rsity of MODERNA 12+ YRS 00:00:00 [place] [facility] VACCINE Branch SARS-COV-2 COVID-19 2021-01-11 Completed Unive rsity of MODERNA 12+ YRS 00:00:00 [place] [facility] VACCINE Branch SARS-COV-2 COVID-19 2021-01-11 Completed Unive rsity of MODERNA 12+ YRS 00:00:00 [place] [facility] VACCINE Branch SARS-COV-2 COVID-19 2021-01-11 Completed Unive rsity of MODERNA 12+ YRS 00:00:00 [place] [facility] VACCINE Branch SARS-COV-2 COVID-19 2021-01-11 Completed Unive rsity of MODERNA 12+ YRS 00:00:00 [place] [facility] VACCINE Branch SARS-COV-2 COVID-19 2021-01-11 Completed Unive rsity of MODERNA 12+ YRS 00:00:00 [place] [facility] VACCINE Branch SARS-COV-2 COVID-19 2021-01-11 Completed Unive rsity of MODERNA 12+ YRS 00:00:00 [place] [facility] VACCINE Branch SARS-COV-2 COVID-19 2021-01-11 Completed Unive rsity of MODERNA 12+ YRS 00:00:00 [place] [facility] VACCINE Branch SARS-COV-2 COVID-19 2021-01-11 Completed Unive rsity of MODERNA 12+ YRS 00:00:00 [place] [facility] VACCINE [facility] SARS-COV-2 COVID-19 2021-01-11 Completed Unive rsity of MODERNA 12+ YRS 00:00:00 [place] [facility] VACCINE [facility] SARS-COV-2 COVID-19 2021-01-11 Completed Unive rsity of MODERNA 12+ YRS 00:00:00 [facility] VACCINE Branch SARS-COV-2 COVID-19 2021-01-11 Completed Unive rsity of MODERNA 12+ YRS 00:00:00 [facility] VACCINE Branch SARS-COV-2 COVID-19 2021-01-11 Completed Unive rsity of MODERNA 12+ YRS 00:00:00 [facility] VACCINE Branch SARS-COV-2 COVID-19 2021-01-11 Completed Unive rsity of MODERNA 12+ YRS 00:00:00 [facility] VACCINE Branch SARS-COV-2 COVID-19 2021-01-11 Completed Unive rsity of MODERNA 12+ YRS 00:00:00 [facility] VACCINE Branch Influenza Virus 2020-08-13 Completed Universit y of Vaccine 00:00:00 [facility] Influenza Virus 2020-08-13 Completed Universit y of Vaccine 00:00:00 [facility] Influenza Virus 2020-08-13 Completed Universit y of Vaccine 00:00:00 [facility] Influenza Virus 2020-08-13 Completed Universit y of Vaccine 00:00:00 [facility] Influenza Virus 2020-08-13 Completed Universit y of Vaccine 00:00:00 [facility] Influenza Virus 2020-08-13 Completed Universit y of Vaccine 00:00:00 [facility] Influenza Virus 2020-08-13 Completed Universit y of Vaccine 00:00:00 [facility] Influenza Virus 2020-08-13 Completed Universit y of Vaccine 00:00:00 [facility] Influenza Virus 2020-08-13 Completed Universit y of Vaccine 00:00:00 [facility] Influenza Virus 2020-08-13 Completed Universit y of Vaccine 00:00:00 [facility] Influenza Virus 2020-08-13 Completed Universit y of Vaccine 00:00:00 [facility] Influenza Virus 2020-08-13 Completed Universit y of Vaccine 00:00:00 [facility] Influenza Virus 2020-08-13 Completed Universit y of Vaccine 00:00:00 [facility] Influenza Virus 2020-08-13 Completed Universit y of Vaccine 00:00:00 [facility] Influenza Virus 2020-08-13 Completed Universit y of Vaccine 00:00:00 [facility] Influenza Virus 2020-08-13 Completed Universit y of Vaccine 00:00:00 [facility] Influenza Virus 2020-08-13 Completed Universit y of Vaccine 00:00:00 [facility] Influenza Virus 2020-08-13 Completed Universit y of Vaccine 00:00:00 [facility] Influenza Virus 2020-08-13 Completed Universit y of Vaccine 00:00:00 [facility] Influenza Virus 2020-08-13 Completed Universit y of Vaccine 00:00:00 [facility] Influenza Virus 2020-08-13 Completed Universit y of Vaccine 00:00:00 [facility] Pneumococcal 2017-06-23 Completed University o f Polysaccharide, [...] Dose 2015-11-16 Completed Unive rsity of 00:00:00 [facility] Pneumococcal 2015-11-16 Completed University o f Polysaccharide, 00:00:00 [place] [facility] PPSV23 (PNEUMOVAX) Branch Influenza High Dose 2015-11-16 Completed Unive rsity of 00:00:00 [facility] Pneumococcal 2015-11-16 Completed University o f Polysaccharide, 00:00:00 [place] [facility] PPSV23 (PNEUMOVAX) Branch Influenza High Dose 2015-11-16 Completed Unive rsity of 00:00:00 [facility] Pneumococcal 2015-11-16 Completed University o f Polysaccharide, 00:00:00 [place] [facility] PPSV23 (PNEUMOVAX) Branch Influenza High Dose 2015-11-16 Completed Unive rsity of 00:00:00 [facility] Pneumococcal 2015-11-16 Completed University o f Polysaccharide, 00:00:00 [place] [facility] PPSV23 (PNEUMOVAX) Branch Influenza High Dose 2015-11-16 Completed Unive rsity of 00:00:00 [facility] Pneumococcal 2015-11-16 Completed University o f Polysaccharide, 00:00:00 [place] [facility] PPSV23 (PNEUMOVAX) Branch Influenza High Dose 2015-11-16 Completed Unive rsity of 00:00:00 [facility] Pneumococcal 2015-11-16 Completed University o f Polysaccharide, 00:00:00 [place] [facility] PPSV23 (PNEUMOVAX) Branch Influenza High Dose 2015-11-16 Completed Unive rsity of 00:00:00 [facility] Pneumococcal 2015-11-16 Completed University o f Polysaccharide, 00:00:00 [place] [facility] PPSV23 (PNEUMOVAX) Branch Influenza High Dose 2015-11-16 Completed Unive rsity of 00:00:00 [facility] Pneumococcal 2015-11-16 Completed University o f Polysaccharide, 00:00:00 [place] Med ical PPSV23 (PNEUMOVAX) Branch Influenza High Dose 2015-11-16 Completed Unive rsity of 00:00:00 [facility] Pneumococcal 2015-11-16 Completed University o f Polysaccharide, 00:00:00 [place] [facility] PPSV23 (PNEUMOVAX) Branch Influenza High Dose 2015-11-16 Completed Unive rsity of 00:00:00 [facility] Pneumococcal 2015-11-16 Completed University o f Polysaccharide, 00:00:00 [place] Med ical PPSV23 (PNEUMOVAX) Branch Influenza High Dose 2015-11-16 Completed Unive rsity of 00:00:00 [facility] Pneumococcal 2015-11-16 Completed University o f Polysaccharide, 00:00:00 [place] Med ical PPSV23 (PNEUMOVAX) Branch Influenza High Dose 2015-11-16 Completed Unive rsity of 00:00:00 [facility] Pneumococcal 2015-11-16 Completed University o f Polysaccharide, 00:00:00 [place] [facility] ical PPSV23 (PNEUMOVAX) Branch Influenza High Dose 2015-11-16 Completed Unive rsity of 00:00:00 [facility] Pneumococcal 2015-11-16 Completed University o f Polysaccharide, 00:00:00 [place] [facility] ical PPSV23 (PNEUMOVAX) Branch Influenza High Dose 2015-11-16 Completed Unive rsity of 00:00:00 [facility] Pneumococcal 2015-11-16 Completed University o f Polysaccharide, 00:00:00 [place] [facility] ical PPSV23 (PNEUMOVAX) Branch Influenza High Dose 2015-11-16 Completed Unive rsity of 00:00:00 [facility] Pneumococcal 2015-11-16 Completed University o f Polysaccharide, 00:00:00 [place] [facility] ical PPSV23 (PNEUMOVAX) Branch Influenza High Dose 2015-11-16 Completed Unive rsity of 00:00:00 [facility] Pneumococcal 2015-11-16 Completed University o f Polysaccharide, 00:00:00 [place] [facility] ical PPSV23 (PNEUMOVAX) Branch Influenza High Dose 2015-11-16 Completed Unive rsity of 00:00:00 [facility] Pneumococcal 2015-11-16 Completed University o f Polysaccharide, 00:00:00 [place] [facility] ical PPSV23 (PNEUMOVAX) Branch Influenza High Dose 2015-11-16 Completed Unive rsity of 00:00:00 [facility] Pneumococcal 2015-11-16 Completed University o f Polysaccharide, 00:00:00 [place] [facility] ical PPSV23 (PNEUMOVAX) Branch Influenza High Dose 2015-11-16 Completed Unive rsity of 00:00:00 [facility] Pneumococcal 2015-11-16 Completed University o f Polysaccharide, 00:00:00 [place] [facility] ical PPSV23 (PNEUMOVAX) Branch Influenza High Dose 2015-11-16 Completed Unive rsity of 00:00:00 [facility] Pneumococcal 2015-11-16 Completed University o f Polysaccharide, 00:00:00 [place] [facility] ical PPSV23 (PNEUMOVAX) Branch Influenza High Dose 2015-11-16 Completed Unive rsity of 00:00:00 [facility] Pneumococcal 2015-11-16 Completed University o f Polysaccharide, 00:00:00 [place] Med ical PPSV23 (PNEUMOVAX) Branch Vital Signs Vital Name Observation Time Observation Value Comments Source HEIGHT 2021-02-10 21:00:00 149.9 cm WEIGHT 2021-02-10 21:00:00 59.467 kg Systolic blood 2022-07-20 14:34:00 123 mm[Hg] Univer sity of pressure [facility] Diastolic blood 2022-07-20 14:34:00 85 mm[Hg] Unive rsity of pressure [facility] Heart rate 2022-07-20 14:34:00 76 /min [facility] Body weight 2022-07-20 14:34:00 58.514 kg [facility] BMI 2022-07-20 14:34:00 26.05 kg/m2 Universi ty [facility] Respiratory rate 2022-07-20 14:32:00 19 /min Univ ersity [facility] Body height 2022-07-20 14:32:00 149.9 cm Universi ty [facility] Oxygen saturation in 2022-07-20 14:32:00 97 /min University of Arterial blood by [facility] Pulse oximetry Branch Systolic blood 2022-06-21 06:00:00 108 mm[Hg] Univer sity of pressure [facility] Diastolic blood 2022-06-21 06:00:00 71 mm[Hg] Unive rsity of pressure [facility] Heart rate 2022-06-21 06:00:00 79 /min Universi ty [facility] Respiratory rate 2022-06-21 06:00:00 27 /min [facility] in 2022-06-21 06:00:00 97 /min University of Arterial blood by [facility] Pulse oximetry Branch Body temperature 2022-06-21 02:00:00 37.44 Ayaka [facility] Body height 2022-06-21 02:00:00 149.9 cm Universi ty [facility] Body weight 2022-06-21 02:00:00 56.7 kg Universi ty [facility] BMI 2022-06-21 02:00:00 25.25 kg/m2 Universi [facility] HEIGHT 2021-02-10 21:00:00 149.9 cm WEIGHT 2021-02-10 21:00:00 59.467 kg Oxygen saturation in 2021-03-18 20:00:00 97 /min [facility] Arterial blood by Pulse oximetry Systolic blood 2021-03-18 17:24:48 132 mm[Hg[facility] Di[facility] blood 2021-03-18 17:24:48 72 mm[Hg] [facility] pressure Heart rate 2021-03-18 17:24:48 96 /min [facility] Body temperature 2021-03-18 17:24:48 37 Ayaka [facility] Respiratory rate 2021-03-18 17:24:48 14 /min [facility] Body height 2021-03-18 01:37:00 149.9 cm [facility] Body weight 2021-03-18 00:09:00 58.968 kg [facility] BMI 2021-03-18 00:09:00 26.26 kg/m2 [facility] Systolic blood 2021-02-12 12:00:00 101 mm[Hg] [facility] Diastolic blood 2021-02-12 12:00:00 72 mm[Hg] [facility] Heart rate 2021-02-12 12:00:00 93 /min [facility] Respiratory rate 2021-02-12 12:00:00 18 /min [facility] Oxygen saturation in 2021-02-12 12:00:00 96 /min [facility] Arterial blood by Medical Ce nter Pulse oximetry Body temperature 2021-02-12 11:00:00 37.56 Ayaka [facility] Body height 2021-02-11 10:15:00 149.9 cm [facility] Body weight 2021-02-11 10:15:00 59.5 kg [facility] BMI 2021-02-11 10:15:00 26.48 kg/m2 [facility] Procedures Procedure Date / Time Performing Clinician Source Performed MEDICATION CORRESPONDENCE 2022-07-06 05:01:00 Doctor Unassigned, [facility] [place] [facility] URINALYSIS 2022-06-21 05:40:00 Chevy Martin [facility] TROPONIN I 2022-06-21 05:09:00 Chevy Martin Bita [facility] XR CHEST 1 VW 2022-06-21 04:02:08 Chevy Martin [facility] MAGNESIUM 2022-06-21 02:44:00 Chevy Martin Bita [facility] TROPONIN I 2022-06-21 02:44:00 Chevy Martin Bita [facility] COMP. METABOLIC PANEL 2022-06-21 02:44:00 Chevy Martin [facility] ([id number]) [facility] Branch CBC WITH DIFF 2022-06-21 02:44:00 Chevy Martin [facility] N-TERMINAL PRO-BNP 2022-06-21 02:44:00 Chevy Martin [facility] Medical Branch CONSENT/REFUSAL FOR 2022-06-21 01:51:06 Doctor Unassigned, [facility] DIAGNOSIS AND TREATMENT [place] [facility] MEDICATION CORRESPONDENCE 2022-06-15 05:01:00 Doctor Unassigned, [facility] Name Medical Branch MEDICATION CORRESPONDENCE 2022-06-14 05:01:00 Doctor Unassigned, [facility] Name Medical Branch REFERRAL- 2022-05-31 05:01:00 Doctor Unassigned, [facility] REQUEST/RESPONSE [place] [facility] MEDICATION CORRESPONDENCE 2022-05-26 05:01:00 Doctor Unassigned, [facility] Name Medical [place] POC GLUCOSE 2021-03-18 17:31:00 Matt Berkowitz [facility] spital ECG 12-LEAD 2021-03-18 17:28:01 Lae, [facility] TROPONIN 2021-03-18 16:41:00 Lae, [facility] TTE COMPLETE, WO 2021-03-18 14:19:12 Lae, [facility] CONTRAST, W DOPPLER ([id number]) POC GLUCOSE 2021-03-18 13:14:00 [facility], [facility] HC COMPLETE BLD COUNT 2021-03-18 10:00:00 [facility], [facility] W/AUTO DIFF COMPREHENSIVE METABOLIC 2021-03-18 10:00:00 [facility], [facility] PANEL MAGNESIUM LEVEL 2021-03-18 10:00:00 [facility] PHOSPHORUS LEVEL 2021-03-18 10:00:00 [facility] LIPID PANEL 2021-03-18 10:00:00 [facility] HEMOGLOBIN A1C 2021-03-18 10:00:00 [facility] ESTIMATED GFR 2021-03-18 10:00:00 [facility], [facility] URINE CULTURE 2021-03-18 06:12:00 [facility], [facility] LEGIONELLA URINARY 2021-03-18 05:36:00 [facility], [facility] ANTIGEN STREPTOCOCCUS PNEUMONIAE 2021-03-18 05:36:00 [facility], [facility] URINARY ANTIGEN URINALYSIS SCREEN AND 2021-03-18 05:36:00 [facility], [facility] MICROSCOPY, WITH REFLEX TO CULTURE BLOOD CULTURE, AEROBIC & 2021-03-18 04:35:00 Lae, [facility] ANAEROBIC BLOOD CULTURE, AEROBIC & 2021-03-18 04:25:00 Lae, [facility] ANAEROBIC DIGOXIN LEVEL 2021-03-18 04:24:00 Lae, [facility] TROPONIN 2021-03-18 04:24:00 [facility] LACTIC ACID LEVEL, SEPSIS 2021-03-18 04:24:00 Lae, [facility] - NOW AND REPEAT 2X EVERY 3 HOURS POC GLUCOSE 2021-03-18 01:38:00 [facility], [facility] ARTERIAL BLOOD GAS 2021-03-18 01:10:00 [facility], [facility] US DUPLEX VENOUS LOWER 2021-03-18 01:00:06 [facility], [facility] EXTREMITY BILATERAL LACTIC ACID LEVEL, SEPSIS 2021-03-17 23:47:00 [facility], [facility] - NOW AND REPEAT 2X EVERY 3 HOURS TROPONIN 2021-03-17 23:47:00 [facility], [facility] XR CHEST 1 VW PORTABLE 2021-03-17 21:20:18 Hector Alvarez [facility] HC COMPLETE BLD COUNT 2021-03-17 21:05:00 [facility] Hector [facility] W/AUTO DIFF LACTIC ACID LEVEL, SEPSIS 2021-03-17 21:05:00 [facility], [facility] - NOW AND REPEAT 2X EVERY 3 HOURS COMPREHENSIVE METABOLIC 2021-03-17 21:05:00 Hector Alvarez [facility] PANEL TROPONIN 2021-03-17 21:05:00 [facility], [facility] B NATRIURETIC PEPTIDE 2021-03-17 21:05:00 Hector Alvarez [facility] D-DIMER 2021-03-17 21:05:00 [place] [facility] ESTIMATED GFR 2021-03-17 21:05:00 [place] Mariia [facility] ECG ED PRELIMINARY 2021-03-17 20:36:46 [facility] 12-LEAD 2021-03-17 20:19:38 [facility] BASIC METABOLIC PANEL (7) 2021-02-12 05:34:00 [facility] MAGNESIUM 2021-02-12 05:34:00 [facility] PHOSPHORUS 2021-02-12 05:34:00 [facility] CBC W/PLT COUNT & AUTO 2021-02-12 04:48:00 [facility] MR BRAIN WITHOUT IV 2021-02-11 16:08:00 Chew [facility] MRA HEAD WITHOUT IV 2021-02-11 16:07:00 [facility] MRA NECK WITHOUT IV 2021-02-11 16:07:00 Naina [facility] RAPID DRUG SCREEN, URINE 2021-02-11 03:05:00 [facility] URINALYSIS WITH 2021-02-11 03:05:00 [facility] INDICATED [facility] URINALYSIS MICROSCOPIC 2021-02-11 03:05:00 [facility] HOMOCYSTEINE 2021-02-11 02:46:00 [facility] RPR 2021-02-11 02:46:00 [facility] TSH/FREE T4 IF INDICATED 2021-02-11 02:46:00 [facility] VITAMIN B12 AND FOLATE 2021-02-11 02:46:00 [facility] CBC W/PLT COUNT & AUTO 2021-02-11 02:46:00 [facility] BASIC METABOLIC PANEL (7) 2021-02-11 02:46:00 [facility] MAGNESIUM 2021-02-11 02:46:00 [facility] PHOSPHORUS 2021-02-11 02:46:00 [facility] C-REACTIVE PROTEIN 2021-02-11 02:46:00 [facility] DIGOXIN LEVEL 2021-02-11 02:46:00 [facility] XR CHEST 1 VIEW PORTABLE 2021-02-10 22:20:00 [facility] / BEDSIDE [place] POCT-GLUCOSE METER 2021-02-10 21:28:[address] [facility] LIPID PANEL 2021-02-10 21:22:00 [facility] CREATINE KINASE (CK) 2021-02-10 21:21:00 [facility] HEMOGLOBIN A1C 2021-02-10 21:21:00 [facility] CBC W/PLT COUNT & AUTO 2021-02-10 21:21:00 [facility] COMPREHENSIVE METABOLIC 2021-02-10 21:21:00 [facility] PROTHROMBIN TIME/INR 2021-02-10 21:21:00 [facility] APTT 2021-02-10 21:21:00 [facility] MAGNESIUM 2021-02-10 21:21:00 [facility] PHOSPHORUS 2021-02-10 21:21:00 [facility] HIGH SENSITIVITY TROPONIN 2021-02-10 21:21:00 [facility] B-TYPE NATRIURETIC FACTOR 2021-02-10 21:21:00 [facility] (BNP) [place] LACTIC ACID, VENOUS 2021-02-10 21:21:00 Alison Prado [facility] ARRYTHMIA IMPLANT REPORT 2021-02-10 00:00:00 ProviderMino [facility] SCAN Scanning Center Plan of Care Planned Activity Planned Date Details Comments Source Future Scheduled 2022-07-21 HEPATITIS B VACCINES Met [facility] Test 10:47:20 (1 of 3 - 3-dose series) [code = HEPATITIS B VACCINES (1 of 3 - 3-dose series)] Future Scheduled 2022-07-21 Screening for [facility] Test 10:47:20 malignant neoplasm of cervix (procedure) [code = 210780075] Future Scheduled 2022-07-21 COVID-19 VACCINE (3 - Me [facility] Test 10:47:20 Booster for Moderna series) [code = COVID-19 VACCINE (3 - Booster for Moderna series)] Future Scheduled 2022-07-21 BREAST CANCER [facility] Test 10:47:20 SCREENING [code = BREAST CANCER SCREENING] Future Scheduled 2022-07-21 INFLUENZA VACCINE Method [facility] Test 10:47:20 [code = INFLUENZA VACCINE] Future Scheduled 2022-06-01 HEPATITIS B VACCINES Met [facility] Test 10:41:01 (1 of 3 - 3-dose series) [code = HEPATITIS B VACCINES (1 of 3 - 3-dose series)] Future Scheduled 2022-06-01 Screening for [facility] Test 10:41:01 malignant neoplasm of cervix (procedure) [code = 967659414] Future Scheduled 2022-06-01 BREAST CANCER [facility] Test 10:41:01 SCREENING [code = BREAST CANCER SCREENING] Future Scheduled 2022-06-01 COVID-19 VACCINE (3 - Me [facility] Test 10:41:01 Booster for Moderna series) [code = COVID-19 VACCINE (3 - Booster for Moderna series)] Future Scheduled 2022-06-01 INFLUENZA VACCINE Method [facility] Test 10:41:01 [code = INFLUENZA VACCINE] Future Scheduled 2022-05-27 HEPATITIS B VACCINES Met [facility] Test 14:45:07 (1 of 3 - 3-dose series) [code = HEPATITIS B VACCINES (1 of 3 - 3-dose series)] Future Scheduled 2022-05-27 Screening for [facility] Test 14:45:07 malignant neoplasm of cervix (procedure) [code = 463586337] Future Scheduled 2022-05-27 BREAST CANCER [facility] Test 14:45:07 SCREENING [code = BREAST CANCER SCREENING] Future Scheduled 2022-05-27 COVID-19 VACCINE (3 - [facility] Test 14:45:07 Booster for Moderna series) [code = COVID-19 VACCINE (3 - Booster for Moderna series)] Future Scheduled 2022-05-27 INFLUENZA VACCINE Method [facility] Test 14:45:07 [code = INFLUENZA VACCINE] [...] Future Scheduled 2022-05-19 HEPATITIS B VACCINES Met [facility] Test 06:25:27 (1 of 3 - 3-dose series) [code = HEPATITIS B VACCINES (1 of 3 - 3-dose series)] Future Scheduled 2022-05-19 Screening for [facility] Test 06:25:27 malignant neoplasm of cervix (procedure) [code = 914197080] Future Scheduled 2022-05-19 BREAST CANCER [facility] Test 06:25:27 SCREENING [code = BREAST CANCER SCREENING] Future Scheduled 2022-05-19 COVID-19 VACCINE (3 - Me [facility] Test 06:25:27 Booster for Moderna series) [code = COVID-19 VACCINE (3 - Booster for Moderna series)] Future Scheduled 2022-05-19 INFLUENZA VACCINE Method [facility] Test 06:25:27 [code = INFLUENZA VACCINE] Future Scheduled 2021-09-[address] [facility] Test 00:00:00 (12+) [code = [facility] DEPRESSION SCREENING (12+)] Future Scheduled [...] [facility] l Center cervix (procedure) [code = 144991074] Future Scheduled [address] [facility] malignant neoplasm of [facility] cervix (procedure) [code = 645743360] Future Scheduled [address] [facility] Test 00:00:00 malignant [facility] cervix (procedure) [code = 164379564] Future Scheduled [address] [facility] Test 00:00:00 malignant ne[facility] of [facility] cervix (procedure) [code = 297843725] Future Scheduled [address] [facility] [facility] Test 00:00:00 malignant neoplasm of [facility] cervix (procedure) [code = 698357109] Future Scheduled 2000 DTAP/TDAP/TD VACCINES CH I [...] Medical Center SCREENING] Future Scheduled Screening for [facility] Test malignant neoplasm of cervix (procedure) [code = 796164481] Future Scheduled INFLUENZA VACCINE [facility] Test [code = INFLUENZA VACCINE] Encounters Start End Encounter Admission Attending Care Care Encounter Source Date/Time Date/Time Type Type Clinicians Facility Department ID 2021-07-27 Inpatient U [facility] [id number] Univers 05:33:08 ity of [facility] 2021-07-26 Emergency [facility] [id number] Univers 13:33:37 ity of [facility] 2021-07-26 Emergency [facility] [id number] Univers 05:24:44 ity of [facility] 2021-07-26 Emergency [facility] [id number] Univers 04:28:31 ity of [facility] 2021-07-26 Emergency [facility] [id number] Univers 03:03:49 ity of [facility] 2021-07-25 Emergency [facility] [id number] Univers 22:05:36 ity of [facility] 2021-07-25 Emergency [facility] [id number] Univers 13:56:50 ity of [facility] 2021-07-25 Emergency [facility] [id number] Univers 00:11:53 ity of [facility] 2021-07-24 Emergency [facility] [id number] Univers 19:05:24 ity of [facility] 2021-07-24 Emergency [facility] [id number] [facility] 2021-07-23 Outpatient U VALERIE [facility] HONG [id number] Univers 12:42:06 AMADO wood [facility] 2021-07-23 Emergency [facility] [id number] [facility] 03:50[facility]23 [facility] 2021-02-10 Inpatient ER BERSHAD, [facility] Neu[facility] [id number] [facility] 20:21:00 WILMER 2020-09-28 Inpatient EL Mely, [facility] [id number] [facility] 12:00:[address] [place] [address] 2022-10-28 2022-10-28 Outpatient R AMOS [facility] [id number] Univers 09:00:00 09:00:00 MARIO [facility] 2022-09-26 2022-09-26 Outpatient R OUSMANE, [facility] [id number] Univers 10:00:00 10:00:00 [facility] 2022-09-01 2022-09-01 Outpatient R VISHNU VALIENTE [facility] [id number] Univers 10:00:00 10:00:00 VISHNU VALIENTE i ty of [facility] 2022-09-01 2022-09-01 Outpatient R VISHNU VALIENTE [facility] [id number] Univers 10:00:00 10:00:00 VISHNU VALIENTE i ty of [facility] 2022-09-01 2022-09-01 Outpatient R VISHNU VALIENTE [facility] 10 [id number] Univers 10:00:00 10:00:00 VISHNU VALIENTE i ty of [facility] 2022-09-01 2022-09-01 Outpatient R VISHNU VALIENTE [facility] 10 [id number] Univers 10:00:00 10:00:00 VISHNU VALIENTE i ty of [facility] 2022-09-01 2022-09-01 Outpatient R VISHNU VALIENTE [facility] 10 [id number] Univers 10:00:00 10:00:00 VISHNU VALIENTE i ty of [facility] 2022-08-05 2022-08-05 Outpatient R OUSMANE [facility] [id number] Univers 11:30:00 11:30:00 SENDIL ity of [facility] 2022-08-05 2022-08-05 Outpatient R AMOS [facility] [id number] Univers 10:40:00 10:40:00 MARIO ity [facility] 2022-08-05 2022-08-05 Outpatient R AMOS [facility] [id number] Univers 10:40:00 10:40:00 MARIO ity [facility] 2022-07-21 2022-07-21 Outpatient R AMOS [facility] [id number] Univers 10:47:18 23:59:00 MARIO ity [facility] 2022-07-20 2022-07-20 Outpatient R FAUSTINASTARR LUISMANAS [facility] [id number] Univers 09:20:00 09:56:41 [facility]ILO [facility]AI[facility] 2022-07-20 2022-07-20 [facility] 1.2.053.138 [id number] Univers 09:20:00 09:56:41 Visit Teofilo [place] 350.1.13.10 [place] [id number] [address] 2022-07-07 2022-07-07 Telephone Steffanie [facility] 1.2.700.866 [id number] Univers 00:00:00 00:00:00 Vishnu [place] 350.1.13.10 [place] [id number] [address] 2022-07-06 2022-07-06 Orders Doctor NURYS 1.2.840.114 [id number] Univers 00:00:00 00:00:00 Only Unassigned, WANDA 350.1.13.10 ity of [place] [facility] 4.2.7.2.686 Basilio as [id number] [address] 2022-06-29 2022-06-29 Refill Steffanie [facility] 1.2.840.114 [id number] Univers 00:00:00 00:00:00 Shiwan [place] 350.1.13.10 i ty of [place] [id number] [facility] [address] [facility] 2022-06-28 2022-06-28 Telephone Jeanie Andrey [facility] 1.2.840.114 [id number] Univers 00:00:00 00:00:00 HEALTH 350.1.13.10 [place] [id number] [address] OFFICE BUILDING 2022-06-22 2022-06-22 Telephone [facility] 1.2.719.106 [id number] Univers 00:00:00 00:00:00 Sendil Magnolia RAMA 350.1.13.10 [place] [id number] [facility] 059 [facility] 2022-06-21 2022-06-21 Outpatient R OUSMANE [facility] [id number] Univers 14:00:00 14:51:21 SENDIL ity of [facility] 2022-06-20 2022-06-21 Emergency X VERONICA, K [facility] ERT [id number] Univers 20:55:00 01:27:00 ity of [facility] 2022-06-20 2022-06-21 Emergency Veronica, K [facility] 1.2.840.114 [id number] Univers 20:55:00 01:27:00 Bita [place] 350.1.13.10 i ty [facility] [place].2.[place] [id number] [place] [address] [address] 2022-06-16 2022-06-16 Larisa Valiente [facility] 1.2.840.114 [id number] Univers 00:00:00 00:00:00 Vishnu [place] 350.1.13.10 i [place] [id number] [place] 031015 [facility] 2022-06-15 2022-06-15 Orders Doctor NUNO 1.2.840.114 [id number] Univers 00:00:00 00:00:00 Only Unassigned, WANDA 350.1.13.10 ity of [place] [facility] 4.2.7.2.686 Basilio as [phone] [address] 2022-06-14 2022-06-14 Orders Doctor NURYS 1.2.840.114 [id number] Univers 00:00:00 00:00:00 Only Unassigned, WANDA 350.1.13.10 ity of [place] [facility] 4.2.7.2.686 Basilio as [id number] [address] 2022-06-02 2022-06-02 Orders Doctor NURYS 1.2.840.114 [id number] Univers 00:00:00 00:00:00 Only Unassigned, WANDA 350.1.13.10 ity of [place] [facility] 4.2.7.2.686 Basilio as [id number] [address] 2022-05-31 2022-05-31 Telemedici Andrey Telles [facility] 1.2.840.114 [id number] Univers 11:30:00 12:00:00 ne Visit HEALTH 350.1.13.10 [place] [id number] [address] OFFICE BUILDING 2022-05-31 2022-05-31 Outpatient R ANDREY TELLES [facility] [id number] Univers 11:30:00 11:30:00 ANDREY TELLES [facility] 2022-05-31 2022-05-31 Outpatient R ANDREY TELLES [facility] [id number] Univers 11:30:00 11:30:00 ANDREY TELLES y [facility] 2022-05-31 2022-05-31 Orders Doctor NURYS 1.2.840.114 [id number] Univers 00:00:00 00:00:00 Only Unassigned, WANDA 350.1.13.10 ity of [place] [facility] 4.2.7.2.686 Basilio as [id number] [address] 2022-05-26 2022-05-26 Larisa Valiente [facility] 1.2.840.114 [id number] Univers 00:00:00 00:00:00 Vishnu O[place] 350.1.13.10 i [place] [id number] Ny dical NAL 085 [facility] 2022-05-26 2022-05-26 Orders Doctor NURYS 1.2.840.114 [id number] Univers 00:00:00 00:00:00 Only Unassigned, WANDA 350.1.13.10 ity of [place] [facility] 4.2.7.2.686 Basilio as [id number] [address] 2022-05-24 2022-05-24 Office [facility] 1.2.840.114 [id number] Univers 09:30:00 10:00:48 Visit Sendil ChevyMariiaShaunaMariia [place] 350.1.13.10 ity of [facility] 4.2.[place] [id number] [facility] 059 [facility] 2022-05-24 2022-05-24 [facility] [id number] Univers 09:30:00 10:00:48 SENDIL ity [facility] 2022-05-24 2022-05-24 [facility] [id number] Univers 09:30:00 09:30:00 SENDIL ity [facility] 2022-05-24 2022-05-24 Patient Vick [facility] 1.2.840.114 [id number] Univers 00:00:00 00:00:00 Secure Msg Ann Tong [facility] 350.1.13.10 [place] [id number] [address] OFFICE [facility] 2022-05-24 2022-05-[address] [facility] 1.2.893.171 [id number] Univers 00:00:00 00:00:00 350.1.13.10 [place] [id number] [address] OFFICE BUILDING 2022-05-24 2022-05-[address] [facility] 1.2.195.360 [id number] Univers 00:00:00 00:00:00 350.1.13.10 i [place] [id number] [place] [address] [address] OFFICE BUILDING 2022-05-20 2022-05-20 Outpatient R AMOS [facility] [id number] Univers 09:00:00 09:00:00 MARIO ity [facility] 2022-05-19 2022-05-19 Telephone [facility] 1.2.325.610 [id number] Univers 00:00:00 00:00:00 Shiwan [place] 350.1.13.10 i ty of [place] [id number] [address] 2022-05-19 2022-05-19 Telephone [facility] 1.2.776.325 [id number] Univers 00:00:00 00:00:00 Shiwan [place] 350.1.13.10 i ty of [place] [id number] [address] 2022-05-19 2022-05-19 Telephone Steffanie [facility] 1.2.985.269 [id number] Univers 00:00:00 00:00:00 Shiwan [place] 350.1.13.10 i ty of [place] [id number] [address] 2022-05-13 2022-05-13 Outpatient R AMOS [facility] [id number] Univers 09:42:18 23:59:00 MARIO ity [facility] 2022-05-13 2022-05-13 Outpatient R AMOS [facility] [id number] Univers 09:42:18 23:59:00 MARIO ity [facility] 2022-05-13 2022-05-13 Outpatient Miguel TRINIDAD [facility] [id number] Univers 10:00:00 10:00:00 MARIO ity [facility] 2022-05-132022-05-13 Outpatient R AMOS [facility] [id number] Univers 10:00:00 10:00:00 MARIO sherman [facility] 2022-05-09 2022-05-09 Telephone Steffanie [facility] 1.2.526.922 [id number] Univers 00:00:00 00:00:00 Vishnu [place] 350.1.13.10 i ty of [place] [id number] Ny dicga NAL 085 [facility] 2022-05-09 2022-05-09 Orders Doctor NURYS 1.2.840.114 [id number] Univers 00:00:00 00:00:00 Only Unassigned, WANDA 350.1.13.10 ity of [place] [facility] 4.2.7.2.686 Basilio as [id number] [facility] [address] [place] 2022-05-07 2022-05-07 Emergency X [facility] ERT [id number] Univers 20:14:00 22:33:00 ADBULKADIR whitaker [facility] 2022-05-07 2022-05-07 Emergency [facility] 1.2.848.138 [id number] Univers 20:14:00 22:33:00 Abdulkadir [place] 350.1.13.10 i [place] [id number] [facility] [address] [place] 2022-05-07 2022-05-07 Emergency X [facility] ERT [id number] Univers 20:14:00 22:33:00 ABDULKADIR whitaker [facility] 2022-05-06 2022-05-06 Office Kanika Meza [facility] 1.2.840.114 [id number] Univers 13:30:00 14:31:27 Visit RAMA 350.1.13.10 i [place] [id number] Ny dical NAL 134 [facility] 2022-05-06 2022-05-06 Outpatient R KANIKA MEZA [facility] [id number] Univers 13:30:00 14:31:27 ity of [facility] 2022-05-06 2022-05-06 Outpatient R KANIKA MEZA [facility] [id number] Univers 13:30:00 13:30:00 ity of [facility] 2022-05-06 2022-05-06 Outpatient R KANIKA MEZA [facility] [id number] Univers 13:30:00 13:30:00 ity of [facility] 2022-05-06 2022-05-06 Telephone [facility] 1.2.259.221 [id number] Univers 00:00:00 00:00:00 Vishnu [place] 350.1.13.10 i ty [place] [id number] Ny dic[address] 2022-05-06 2022-05-06 Telephone [facility] 1.2.113.957 [id number] Univers 00:00:00 00:00:00 Vishnu [place] 350.1.13.10 i ty of [place] [id number] [address] 2022-05-06 2022-05-06 Orders Doctor NURYS 1.2.840.114 [id number] Univers 00:00:00 00:00:00 Only Unassigned, WANDA 350.1.13.10 ity of [place] [facility] 4.2.7.2.686 Basilio as [id number] [address] 2022-05-02 2022-05-02 Refill [facility] 1.2.840.114 [id number] Univers 00:00:00 00:00:00 Navi [place] 350.1.13.10 [place] [id number] Ny dicga NAL 059 [facility] 2022-05-02 2022-05-02 Refanand [facility] 1.2.840.114 [id number] Univers 00:00:00 00:00:00 Navi [place] 350.1.13.10 [place] of [place] [id number] Ny dical NAL [address] 2022-04-29 2022-04-29 Orders Doctor NURYS 1.2.840.114 [id number] Univers 00:00:00 00:00:00 Only Unassigned, WANDA 350.1.13.10 ity of [place] [facility] 4.2.7.2.686 Basilio as [id number] [facility] [address] 2022-04-27 2022-04-27 Telephone Steffanie [facility] 1.2.334.225 [id number] Univers 00:00:00 00:00:00 Vishnu [place] 350.1.13.10 i ty of [place] [id number] Ny dicga NAL 085 [facility] 2022-04-15 2022-04-18 Outpatient X LINDY [facility] HONG [id number] Univers 18:13:00 17:00:00 [facility] ity of [facility] 2022-04-15 2022-04-18 Emergency Chevy Martin 1.2.840. 114 [id number] Univers 18:13:00 17:00:00 Leonard Fuller 350. 1.13.10 ity of [facility] 4.2.7.2.686 [place] [id number] [place] [address] [place] 2022-04-18 2022-04-18 Outpatient SOL MNOCADA [facility] [id number] Univers 15:00:00 15:00:00 ity of [facility] 2022-04-14 2022-04-14 Telephone Jonny [facility] 1.2.365.366 [id number] Univers 00:00:00 00:00:00 350.1.13.10 i ty of [place] [id number] [address] OFFICE BUILDING 2022-04-14 2022-04-14 Telephone Steffanie [facility] 1.2.064.977 [id number] Univers 00:00:00 00:00:00 Shiwan RAMA 350.1.13.10 i [place] [id number] Ny dical NAL 085 [facility] 2022-04-07 2022-04-07 Outpatient OLAF MATUTE [facility] 754 [place] 08:14:00 08:14:00 H 0714 [facility] 2022-04-05 2022-04-05 Outpatient R KANIKA MEZA [facility] [id number] Univers 09:00:00 09:49:19 ity [facility] 2022-04-05 2022-04-05 Office Derrick [facility] 1..840.114 [id number] Univers 09:00:00 09:49:19 Visit RAMA 350..13.10 i ty [place] [id number] Ny dical NAL 134 [facility] 2022-04-05 2022-04-05 Outpatient R KANIKA MEZA [facility] [id number] Univers 09:00:00 09:49:19 [facility] 2022-04-05 2022-04-05 Outpatient R KANIKA MEZA [facility] [id number] Univers 09:00:00 09:00:00 [facility] 2022-03-23 2022-03-23 Outpatient R ERNIE RODAS [facility] [id number] Univers 10:00:00 10:00:00 ERNIE [facility] 2022-03-23 2022-03-23 Emergency X Chevy MARTIN [facility] ERT [id number] Univers 01:37:00 03:06:00 [facility] 2022-03-23 2022-03-23 Emergency Chevy Martin [facility] 1..840.114 [id number] Univers 01:37:00 03:06:00 Bita [place] 350.1.13.10 [place] [id number] [address] 2022-03-23 2022-03-23 Telephone [facility] 1.2.757.857 [id number] Univers 00:00:00 00:00:00 Andreadonnie RAM[place] 350.1.13.10 i ty of [place] [facility] [id number] Ny dical [facility] [address] BU[address]ING 2022-03-17 2022-03-17 Outpatient R [facility] [id number] Univers 09:30:00 09:30:00 ity of [facility] 2022-03-17 2022-03-17 Outpatient R [facility] [id number] Univers 09:30:00 09:30:00 ity of [facility] 2022-03-15 2022-03-15 Outpatient R JONNY [facility] [id number] Univers 08:30:00 09:16:22 [facility] EMERGENCY DEPARTMENT ity o f [facility] 2022-03-15 2022-03-15 [facility] [id number] Univers 08:30:00 09:16:22 [facility] [id number] [id number] [phone] [place] [id number] Branch OFFICE BUILDING 2022-03-10 2022-03-11 Emergency X [facility] ERT [id number] Univers 22:48:00 00:50:00 WAKILI ity [facility] 2022-03-10 2022-03-11 Emergency Critical access hospital [id number] Univers 22:48:00 00:50:00 Sammy ONTIVEROS 350.1.13.10 [place] [id number] [place] [id number] 2022-03-10 2022-03-11 Emergency X [facility] ERT [id number] Univers 22:48:00 00:50:00 WAKILI ity [facility] 2022-03-08 2022-03-08 Outpatient R [facility] [id number] Univers 11:00:00 11:00:00 ity of [facility] 2022-02-252022-02-25 Outpatient R VISHNU VALIENTE [facility] [id number] Univers 11:30:00 11:59:54 STEFFANIE VISHNU i ty [facility] 2022-02-25 2022-02-25 Office [facility] 1.2.840.114 [id number] Univers 11:30:00 11:59:54 Visit Vishnu [place] 350.1.13.10 i ty [facility] [place] [phone] [address] 2022-02-25 2022-02-25 Outpatient R VISHNU VALIENTE [facility] 10 [id number] Univers 11:30:00 11:30:00 VISHNU VALIENTE i [facility] 2022-02-23 2022-02-23 Outpatient R FAUSTINASTARR LUISPAEliz [facility] [id number] Univers 13:20:00 13:50:10 [facility] 2022-02-23 2022-02-23 Office Leo [facility] 1.2.510.575 [id number] Univers 13:20:00 13:40:00 [facility] 350.1.13.10 ity [facility] [place] [phone] [address] 2022-02-23 2022-02-23 Outpatient R FAUSTINASTARR LUISPAEliz [facility] [id number] Univers 13:20:00 13:20:00 FAUSTINAMEG LUISL ity [facility] 2022-02-23 2022-02-23 Outpatient R STARR BAILEYPAEliz [facility] [id number] Univers 13:20:00 13:20:00 FAUSTINASTARR LUISPAL itnessa [facility] 2022-02-23 2022-02-23 Orders Doctor NUNO 1.2.840.114 [id number] Univers 00:00:00 00:00:00 Only Unassigned, WANDA 350.1.13.10 ity of [facility] 4.2.7.2.686 Basilio as [phone] [address] 2022-02-23 2022-02-23 Telephone [facility] 1.2.840.114 [id number] Univers 00:00:00 00:00:00 Teofilo ONTIVEROS 350.1.13.10 ity of [place] [phone] Ny dical NAL 085 [facility] 2022-02-15 2022-02-15 Orders Doctor NURYS 1.2.840.114 [id number] Univers 00:00:00 00:00:00 Only Unassigned, WANDA 350.1.13.10 ity of [facility] 4.2.7.2.686 Basilio as [phone] [address] 2022-02-03 2022-02-03 Telephone [facility] 1.2.787.945 [id number] Univers 00:00:00 00:00:00 Sendestelle ONTIVEROS 350.1.13.10 ity of [place] [phone] Ny dical NAL 9 [facility] 2022-01-31 2022-01-31 Outpatient R OUSMANE [facility] [id number] Univers 13:00:00 13:07:55 SENDIL [facility] 2022-01-31 2022-01-31 Office [facility] 1.2.840.114 [id number] Univers 13:00:00 13:07:55 Visit Sendestelle [place] 350.1.13.10 ity of [place].2.[place] [phone] Ny dical NAL 9 [facility] 2022-01-31 2022-01-31 Outpatient R OUSMANE [facility] [id number] Univers 13:00:00 13:00:00 SENDIL ity [facility] 2022-01-28 2022-01-28 Outpatient R AMOS [facility] [id number] Univers 09:52:45 23:59:00 MARIO ity [facility] 2022-01-28 2022-01-28 Outpatient R AMOS, [facility] [id number] Univers 09:52:45 23:59:00 MARIO ity of [facility] 2022-01-24 2022-01-24 Telephone [facility] 1.2.832.649 [id number] Univers 00:00:00 00:00:00 Navi ONTIVEROS 350.1.13.10 ity of [place] 4.2.7.2.686 [facility] PROFESSIO [phone] Ny dic[place] 561059 [facility] 2022-01-21 2022-01-21 Outpatient R FULLER, [facility] [id number] Univers 08:00:00 08:00:00 CHILVANA ity o f [facility] 2022-01-18 2022-01-18 Outpatient R CARKARISSA [facility] [id number] Univers 13:40:00 14:35:50 GUCCI TSE y [facility] 2022-01-18 2022-01-18 [facility] 1.2.840.114 [id number] Univers 13:40:00 14:35:50 Visit Gucci tse 350.1.13.10 ity of [facility] 4.2.7.2.686 [facility] [phone] Ny dic[address] 2022-01-02 2022-01-03 Outpatient X FILEMON [facility] [id number] Univers 22:00:00 16:04:00 WAKILI ity [facility] 2022-01-02 2022-01-03 Emergency Sammy Kurtz [facility] 1.2.840 .114 [id number] Univers 22:00:00 16:04:00 Chantal Arevalo 350.1.13.10 ity of [facility] 4.2.7.2.686 [facility] [phone] [address] 2022-01-03 2022-01-03 Telephone [facility] 1.2.770.159 [id number] Univers 00:00:00 00:00:00 Navi ONTIVEROS 350.1.13.10 ity of [facility] 4.2.7.2.[place] [phone] Ny dical NAL 059 [facility] 2021-12-31 2021-12-31 Emergency X RADHA [facility] ERT [id number] Univers 16:32:00 21:48:00 SELVIN ity [facility] 2021-12-31 2021-12-31 Emergency Radha [facility] 1.2.530.505 [id number] Univers 16:32:00 21:48:00 Selvin ONTIVEROS 350.1.13.10 i ty of [place] 4.2.7.2.686 [facility] [phone] [facility] [address] [place] 2021-12-16 2021-12-16 Telephone Jonyn [facility] 1.2.473.984 [id number] Univers 00:00:00 00:00:00 Chon MAI 350.1.13.10 it[place] of [place].2.[place] [phone] Ny dical AND ADULT [address] [place] [facility] 2021-12-09 2021-12-09 Emergency X ALIZA [facility] ERT [id number] Univers 01:58:00 04:56:00 RADHA sherman [facility] 2021-12-09 2021-12-09 Emergency [facility] 1.2.840.114 [id number] Univers 01:58:00 04:56:00 Radha ONTIVEROS 350.1.13.10 ity of [place] 4.2.7.2.686 [facility] [phone] [facility] [address] [place] 2021-12-09 2021-12-09 Orders Doctor NURYS 1.2.840.114 [id number] Univers 00:00:00 00:00:00 Only Unassigned, WANDA 350.1.13.10 ity of [place] [facility] 4.2.7.2.686 Basilio as [phone] [facility] [address] [place] 2021-12-07 2021-12-07 Telephone [facility] 1.2.718.904 [id number] Univers 00:00:00 00:00:00 Vishnu ONTIVEROS 350.1.13.10 i ty of [place] 4[place]2.7.2.[place] [phone] Ny dical NAL 085 [facility] 2021-12-07 2021-12-07 Orders Doctor NURYS 1.2.840.114 [id number] Univers 00:00:00 00:00:00 Only Unassigned, WANDA 350.1.13.10 ity of [place] [facility] 4.2.7.2.686 Basilio as [phone] [address] 2021-12-06 2021-12-06 Larisa [facility] 1.2.840.114 [id number] Univers 00:00:00 00:00:00 Shiwan [place] 350.1.13.10 i ty of [place] 4.2.7.2.[place] [phone] Ny dical NAL 059 [facility] 2021-11-30 2021-11-30 [facility] 1.2.840.114 [id number] Univers 00:00:00 00:00:00 Shiwan [place] 350.1.13.10 i ty of [place] 4[place]2.7.2.[place] [phone] Ny dical NAL 085 [facility] 2021-11-15 2021-11-15 Telephone [facility] 1.2.111.488 [id number] Univers 00:00:00 00:00:00 Shiwan [place] 350.1.13.10 i ty of [place] 4.2.7.2.[place] [phone] Ny dical NAL 085 [facility] 2021-11-12 2021-11-12 Telephone [facility] 1.2.399.573 [id number] Univers 00:00:00 00:00:00 Shiwan [place] 350.1.13.10 i ty of [place] 4[place]2.7.2.[place] [phone] Ny dical NAL 085 [facility] 2021-11-06 2021-11-06 Refanand [facility] 1.2.840.114 [id number] Univers 00:00:00 00:00:00 Shiwan [place] 350.1.13.10 i ty of [place] 4.2.7.2.[place] [phone] Ny dical NAL 085 [facility] 2021-11-05 2021-11-05 Outpatient R AMOS [facility] [id number] Univers 10:23:45 23:59:00 MARIO ity of [facility] 2021-11-05 2021-11-05 [facility] 1.2.840.114 [id number] Univers 10:23:45 23:59:00 Encounter Mario JOANTON 350.1.13.10 ity of [place] 4.2.7.2.[place] [phone] [facility] NAL 844 [facility] 2021-11-05 2021-11-05 Outpatient [facility] [id number] Univers 11:20:00 11:47:58 ROSHNILESLEY sherman o f [facility] 2021-11-05 2021-11-05 Office [facility] 1.2.840.114 [id number] Univers 11:20:00 11:47:58 Visit Andrews ONTIVEROS 350.1.13.10 ity of [facility] 4.2.7.2.[place] [phone] [facility] 059 [facility] 2021-11-02 2021-11-02 Telephone [facility] 1.2.274.891 [id number] Univers 00:00:00 00:00:00 Vishnu [place] 350.1.13.10 i ty of [place] 4.2.7.2.[place] [phone] [facility] NAL 085 [facility] 2021-11-02 2021-11-02 Telephone [facility] 1.2.666.962 [id number] Univers 00:00:00 00:00:00 Shiwan [place] 350.1.13.10 i ty of [place] 4.2.7.2.[place] [phone] Ny dicga NAL 059 [facility] 2021-11-01 2021-11-01 Outpatient R VALIENTE, [facility] 10 [id number] Univers 09:17:26 23:59:00 STEFFANIE VISHNU i ty of [facility] 2021-11-01 2021-11-01 Hospital [facility] 1.2.840.114 [id number] Univers 09:17:26 23:59:00 Encounter Vishnu PARRISH 350.1.13.10 ity of [place]2.7.2.[place] [phone] [facility] [address] ([facility]) 2021-11-01 2021-11-01 Outpatient R VISHNU VALIENTE [facility] 10 [id number] Univers 09:17:26 23:59:00 VISHNU VALIENTE i ty of [facility] 2021-10-22 2021-10-22 Outpatient R DELORES VALIENTEAKDonnie [facility] 10 [id number] Univers 12:00:00 12:21:50 VISHNU VALIENTE i ty of [facility] 2021-10-22 2021-10-22 Office [facility] 1.2.840.114 [id number] Univers 12:00:00 12:21:50 Visit Deloresfransisco RAMA 350.1.13.10 i ty of [place]2.7.2.[place] [phone] [address] 2021-09-29 2021-09-29 Emergency X [facility] ERT [id number] Univers 10:03:00 10:22:00 ABDULKADIR whitaker of [facility] 2021-09-29 2021-09-29 Emergency [facility] 1.2.734.256 [id number] Univers 10:03:00 10:22:00 Abdulkadir ONTIVER[place] 350.1.13.10 i ty of [facility] 4.2.7.2.[place] [phone] [place] 142904 [place] 2021-09-21 2021-09-21 Telephone Ousmane [facility] 1.2.238.252 [id number] Univers 00:00:00 00:00:00 Sendestelle ONTIVEROS 350.1.13.10 ity of [facility] 4.2.7.2.[place] [phone] Ny dical NAL [address] [facility] 2021-09-15 2021-09-15 Telephone Fuller, [facility] 1.2.325.185 [id number] Univers 00:00:00 00:00:00 Chilvana SPECIALTY 350.1.13.10 ity of [place]2.[place].2.[place] C[place] AT [phone] Ny dical [place] 092 [facility] 2021-09-08 2021-09-08 Telephone [facility], [facility] 1.2.585.906 [id number] Univers 00:00:00 00:00:00 Chilvana FRIENDSWO 350.1.13.10 ity of [place] 4.2.7.2.[place] [phone] Ny dical AND ADULT [address] [place] [facility] 2021-09-08 2021-09-08 Orders Doctor NURYS 1.2.840.114 [id number] Univers 00:00:00 00:00:00 Only Unassigned, WANDA 350.1.13.10 ity of [place] [facility] 4.2.7.2.686 Basilio as [phone] [address] 2021-09-06 2021-09-[address] [facility] 1.2.203.267 [id number] Univers 00:00:00 00:00:00 [facility] HEALTH 350.1.13.10 i ty of [place].2.[place] [phone] [facility] [address] [place] OFFICE BUILDING 2021-09-03 2021-09-03 Outpatient R JONNY [facility] [id number] Univers 10:00:00 10:34:22 CHILVANA ity o f [facility] 2021-09-03 2021-09-03 Outpatient R JONNY [facility] [id number] Univers 10:00:00 10:34:22 CHILVANA ity o f [facility] 2021-09-03 2021-09-03 Office Fuller, [facility] 1.2.840.114 [id number] Univers 09:38:02 10:34:22 Visit Chidavidana FRIENDSWO 350.1.13.10 ity of [place] 4[place]2.7.2.[place] [id number] Ny dical AND ADULT [address] [facility] 2021-09-03 2021-09-03 Outpatient R JONNY [facility] [id number] Univers 10:00:00 10:00:00 CHILVANA ity o f [facility] 2021-08-31 2021-08-31 Office [facility] 1.2.840.114 [id number] Univers 11:17:59 11:47:59 Visit Navi ONTIVEROS 350.1.13.10 ity of [place]2.7.2.[place] [phone] Ny dical NAL 059 [facility] 2021-08-31 2021-08-31 Outpatient R OUSMANE [facility] [id number] Univers 11:30:00 11:30:00 SENDIL sherman [facility] 2021-08-31 2021-08-31 Orders Doctor NUNO 1.2.840.114 [id number] Univers 00:00:00 00:00:00 Only Unassigned, WANDA 350.1.13.10 ity of [place] [facility] 4.2.7.2.686 Basilio as [phone] [facility] [address] [place] 2021-08-25 2021-08-25 Telephone Leo [facility] 1.2.840.114 [id number] Univers 00:00:00 00:00:00 Teofilo ONTIVEROS 350.1.13.10 ity of [place] 4[place]2.7.2.[place] [phone] Ny dical NAL 085 [facility] 2021-08-14 2021-08-14 Emergency X [facility] ERT [id number] Univers 11:05:00 11:22:00 RADHA whitaker [facility] 2021-08-14 2021-08-14 Emergency [facility] 1.2.840.114 [id number] Univers 11:05:00 11:22:00 Radha ONTIVER[place] 350.1.13.10 ity of [place]2.7.2.[place] [phone] [facility] [address] [place] 2021-08-13 2021-08-13 Orders Doctor NURYS 1.2.840.114 [id number] Univers 00:00:00 00:00:00 Only Unassigned, WANDA 350.1.13.10 ity of [place] [facility] 4.2.7.2.686 Basilio as [phone] [facility] [address] [place] 2021-08-12 2021-08-12 Hospital Merrick Rodriguez 1.2.840.114 [id number] Univers 10:22:39 23:59:00 Encounter Tech, [facility] Eeg WANDA 350.1.13.10 ity of [place].7.2.686 [place] [phone] [facility] [address] [place] 2021-08-12 2021-08-12 Outpatient R OUSMANE [facility] [id number] Univers 07:27:10 10:21:00 SENDIL ity of [facility] 2021-08-12 2021-08-12 [facility] 1.2.840.114 [id number] Univers 07:27:10 10:21:00 Encounter Sendil [facility] 350.1.13.10 ity of [facility] 4.2.7.2.686 [place] [id number] [facility] [address] [place] 2021-08-05 2021-08-05 Emergency X [facility] ERT [id number] Univers 09:38:00 13:54:00 KARLA whitaker [facility] 2021-08-05 2021-08-05 Emergency [facility] 1.2.747.397 [id number] Univers 09:38:00 13:54:00 Karla ONTIVEROS 350.1.13.10 ity of [place] 4[place]2.7.2.686 [place] [phone] [facility] [address] [place] 2021-08-05 2021-08-05 Outpatient R MICHAEL [facility] [id number] Univers 08:00:00 08:00:00 MERRICK itnessa of [facility] 2021-07-30 2021-07-30 Outpatient R VISHNU VALIENTE [facility] 10 [id number] Univers 09:30:00 09:44:34 VISHNU VALIENTE i ty of [facility] 2021-07-30 2021-07-30 Office [facility] 1.2.840.114 [id number] Univers 09:16:56 09:44:34 Visit Vishnu ONTIVER[place] 350.1.13.10 i ty of [place] 4.2.7.2.[place] [phone] Ny dical NAL 085 [facility] 2021-07-28 2021-07-28 Orders Doctor NURYS 1.2.840.114 [id number] Univers 00:00:00 00:00:00 Only Unassigned, WANDA 350.1.13.10 ity of [place] [facility] 4.2.7.2.686 Basilio as [phone] [address] 2021-07-21 2021-07-21 Office Leo [facility] 1.2.003.019 [id number] Univers 09:38:37 10:17:36 Visit Teofilo Ontiveros 350.1.13.10 ity of [place].2.[place] [phone] Ny dicga nal [address] [place] [address] 2021-07-21 2021-07-21 Outpatient R TEOFILO BAILEY [facility] [id number] Univers 10:00:00 10:00:00 TEOFILO BAILEY ity of [facility] 2021-07-21 2021-07-21 Refill Ousmane [facility] 1.2.840.114 [id number] Univers 00:00:00 00:00:00 Sendestelle Ontiveros 350.1.13.10 ity of [place].2.7.2.[place] [phone] Ny dicga nal 059 [facility] 2021-07-15 2021-07-15 Telephone Pipes, [facility] 1.2.788.072 [id number] Univers 00:00:00 00:00:00 Merrick GrexIt 350.1.13.10 it y of [place].2.7.2.[place] [phone] [facility] [address] [place] Office Building 2021-07-13 2021-07-13 [facility] Amos, [facility] 1.2.840.114 [id number] Univers 11:18:09 23:59:00 Encounter Mario [place] 350.1.13.10 ity of [place].7.2.[place] [phone] Ny dical nal [address] Building 2021-07-13 2021-07-13 Office Pip, [facility] 1.2.840.114 [id number] Univers 08:04:54 09:15:32 Visit [facility] 350.1.13.10 it y of [place].2.[place] [phone] [address] Office Building 2021-07-13 2021-07-13 Outpatient R [facility] [id number] Univers 08:30:00 08:30:00 [facility] ity [facility] 2021-07-05 2021-07-05 Case [facility] 1.2.840.114 [id number] Univers 00:00:00 00:00:00 Management [facility] [employer] [facility] 350.1.13.10 ity of [place]2.[place].2.[place] [phone] [place] 569[address] [place] Office Building 2021-07-04 2021-07-04 [facility] Tyler Jean [facility] 1.2.840.114 [id number] Univers 04:52:00 17:50:00 Encounter [place] 350.1.13.10 ity of [place].7.2.[place] [phone] [address] 2021-06-30 2021-06-30 Patient Fuller, [facility] 1.2.840.114 [id number] Univers 00:00:00 00:00:00 Secure g Chon FRIENDSWO 350.1.13.10 ity of [place] 4[place]2.7.2.[place] [id number] Ny dical AND ADULT [address] [place] [facility] 2021-06-14 2021-06-14 Patient Jonny [facility] 1.2.840.114 [id number] Univers 00:00:00 00:00:00 Secure Msg Chon OVALLESWO 350.1.13.10 [place].2.[place] [id number] Ny dicga AND ADULT [address] [place] [address] SPECIALTY CARE CLINICS 2021-06-04 2021-06-04 Office Jonny [facility] 1.2.840.114 [id number] Univers 10:04:17 13:08:06 Visit Chon AVENDANOO 350.1.13.10 ity of [place] 4[place]2.7.2.[place] [phone] Ny dicga AND ADULT [address] [place] [address] [facility]TY CARE CLINICS 2021-06-04 2021-06-04 Outpatient R JONNY [facility] [id number] Univers 10:30:00 10:30:00 CHON ity o f [facility] 2021-05-21 2021-05-21 Orders Doctor NURYS 1.2.840.114 [id number] Univers 00:00:00 00:00:00 Only Unassigned, WANDA 350.1.13.10 ity of [place] [facility] 4.2.7.2.686 Basilio as [phone] [address] 2021-05-21 2021-05-21 Orders Doctor NURYS 1.2.840.114 [id number] Univers 00:00:00 00:00:00 Only Unassigned, WANDA 350.1.13.10 ity of [place] [facility] 4.2.7.2.686 Basilio as [phone] [address] 2021-05-17 2021-05-17 Outpatient R APOORVA [facility] [id number] Univers 14:00:00 16:19:36 DIEUDONNE ity of [facility] 2021-05-17 2021-05-17 Office [facility] 1.2.840.114 [id number] Univers 13:33:42 16:19:36 Visit [employer] 350.1.13.10 it y of [place] 4.2.7.2.686 Basilio as Jayjay?Blea [phone] Ny dic[address] Medical Office Building 2021-05-17 2021-05-17 Outpatient R APOORVA [facility] [id number] Univers 14:00:00 14:00:00 DIEUDONNE ity of [facility] 2021-05-12 2021-05-12 Orders Doctor NURYS 1.2.840.114 [id number] 00:00:00 00:00:00 Only Unassigned, WANDA 350.1.13.10 [place] [facility] 4.2.7.2.686 [id number] [facility] 2021-05-12 2021-05-12 Orders Doctor NURYS 1.2.840.114 [id number] Univers 00:00:00 00:00:00 Only Unassigned, WANDA 350.1.13.10 ity of [place] [facility] 4.2.7.2.686 Basilio as [phone] [address] 2021-04-29 2021-04-29 Office [facility] 1.2.840.114 [id number] 12:33:16 13:56:43 Visit Vishnu Ontiveros 350.1.13.10 [place] 4.2.7.2.686 Professio [phone] [address] 2021-04-29 2021-04-29 Office [facility] 1.2.840.114 [id number] Univers 12:33:16 13:56:43 Visit Vishnu Ontiveros 350.1.13.10 i ty of [place].2.[place] [phone] Ny dical [address] 2021-04-29 2021-04-29 Outpatient R VISHNU VALIENTE [facility] 10 [id number] Univers 13:00:00 13:00:00 VISHNU VALIENTE i ty of [facility] 2021-04-29 2021-04-29 Outpatient R VISHNU VALIENTE [facility] [id number] Univers 10:00:00 10:00:00 VISHNU VALIENTE i ty of [facility] 2021-04-28 2021-04-28 Outpatient R VISHNU VALIENTE [facility] 10 [id number] Univers 13:00:00 13:00:00 VISHNU VALIENTE i ty of [facility] 2021-04-28 2021-04-28 Orders [facility]ff[facility] [id number] [id number] 00:00:00 00:00:00 Only Shiwan [facility] 350.1.13.10 CLINICS 4.2.7.2.686 [id number] 2021-04-28 2021-04-28 Orders [place], [facility] 1.2.269.041 [id number] Univers 00:00:00 00:00:00 Only Shiwan Y HEALTH 350.1.13.10 i [place] [phone] [address] 2021-04-23 2021-04-23 Orders Doctor NURYS 1.2.840.114 [id number] Univers 00:00:00 00:00:00 Only Unassigned, WANDA 350.1.13.10 ity of [place] [facility] 4.2.7.2.686 Basilio as [phone] [address] 2021-04-20 2021-04-20 Telephone Steffanie OHLENARD 1.2.572.094 [id number] Univers 00:00:00 00:00:00 Vishnu Ontiveros 350.1.13.10 i [place] [id number] [address] 2021-04-20 2021-04-20 Orders Doctor NUNO 1.2.840.114 [id number] Univers 00:00:00 00:00:00 Only Unassigned, WANDA 350.1.13.10 ity of [place] [facility] 4.2.7.2.686 Basilio as [id number] [address] 2021-04-16 2021-04-16 Orders Doctor NURYS 1.2.840.114 [id number] Univers 00:00:00 00:00:00 Only Unassigned, WANDA 350.1.13.10 ity of [place] [facility] 4.2.7.2.686 Basilio as [id number] [address] 2021-04-09 2021-04-09 Outpatient R VISHNU VALIENTE [facility] 10 [id number] Univers 09:30:00 09:30:00 VISHNU VALIENTE i ty of [facility] 2021-04-09 2021-04-09 [facility] 1.2.028.150 [id number] Univers 00:00:00 00:00:00 Shiwan [place] 350.1.13.10 i [place] [phone] [facility] nal [address] [place] [address] 2021-04-09 2021-04-09 Orders Steffanie [facility] 1.2.089.210 [id number] Univers 00:00:00 00:00:[address] [facility] 350.1.13.10 i ty of [facility] [place] [id number] [address] 2021-04-07 2021-04-07 Office Ousmane [facility] 1.2.840.114 [id number] [facility] 11:14:41 11:47:47 Visit Navi Ontiveros 350.1.13.10 ity [place] [id number] [address] 2021-04-07 2021-04-07 [facility] [facility] [id number] [facility] 11:30:00 11:30:00 SENDIL ity of [facility] 2021-03-30 2021-03-30 Telephone [facility] 1.2.933.156 [id number] Univers 00:00:00 00:00:00 Vishnu Ontiveros 350.1.13.10 i [place] [phone] Ny dicga nal [address] [place] [address] 2021-03-29 2021-03-29 Refill Ousmane [facility] 1.2.840.114 [id number] Univers 00:00:00 00:00:00 Sendil Magnolia Ontiveros 350.1.13.10 it[place] of [place] [phone] Ny dical nal 059 [facility] 2021-03-25 2021-03-27 Emergency Karla Landeros [facility] 1.2.840 .114 [id number] Univers 15:23:00 13:10:00 Chuy Armstrong 350.1.13.10 it[place] of [place] [phone] [facility] [address] 2021-03-24 2021-03-24 Orders Doctor NURYS 1.2.840.114 [id number] Univers 00:00:00 00:00:00 Only Unassigned, WANDA 350.1.13.10 ity of [place] [facility] 4.2.7.2.686 Basilio as [phone] [facility] [address] 2021-03-22 2021-03-22 Emergency Chevy Martin [facility] 1.2.840.114 [id number] Univers 17:47:00 21:19:00 Bita Ontiveros 350.1.13.10 i [place] of [place] [phone] [facility] [address] 2021-03-19 2021-03-19 Office Steffanie [facility] 1.2.840.114 [id number] 43 Univers 12:58:34 13:28:34 Visit Vishnu Ontiveros 350.1.13.10 i [place] [phone] Ny dical nal 085 [facility] 2021-03-19 2021-03-19 Outpatient R VISHNU VALIENTE [facility] 10 [id number] Univers 13:00:00 13:00:00 VISHNU VALIENTE i ty of [facility] 2021-03-19 2021-03-19 Patient Omari, 1.2.840.1 [id number] Methodi 00:00:00 00:00:00 Outreach Ann 43233.1.[address] 3.430.2.7 Hospit a .3.282129 l .8 2021-03-17 2021-03-18 Emergency Hector Alvarez 1.2.840.1 104 [id number] Methodi 14:59:00 17:52:00 Veda Bolanos 90837.1.[address] Matt Berkowitz 3.430.2.7 Hospita .3.590196 l .8 2021-03-17 2021-03-17 Travel 1.2.840.1 1.2.645.150 2988 [id number] Methodi 00:00:00 00:00:[address] 3.430.2.7 0.2.7.3.698 Ho spita .3.082774 084.8 l .8 2021-03-16 2021-03-16 Emergency [facility] 1.2.840.114 [id number] Univers 19:19:00 21:38:00 Radha Ontiveros 350.1.13.10 ity [facility] 4.2.7.2.686 [facility] [phone] [facility] [address] 2021-03-02 2021-03-02 Outpatient R [facility] [id number] Univers 11:30:00 11:30:00 [facility] 2021-03-02 2021-03-02 Outpatient [facility] [id number] Univers 11:20:00 11:20:00 MARIO [facility] 2021-03-02 2021-03-02 Telephone [facility] 1.2.645.792 [id number] Univers 00:00:00 00:00:00 Vishnu Ontiveros 350.1.13.10 i ty of [place] 4.2.7.2.686 [facility] [phone] Ny dical [facility] 085 [facility] 2021-02-26 2021-02-26 Outpatient R HERNESTO BRIAN [facility] [id number] Univers 09:40:00 09:40:00 HERNESTO BRIAN [facility] 2021-02-24 2021-02-24 Larisa Valiente [facility] 1.2.840.114 [id number] Univers 00:00:00 00:00:00 Vishnu Ontiveros 350.1.13.10 i [place] [phone] [facility] 085 [facility] 2021-02-19 2021-02-20 Emergency X [facility] ERT [id number] Univers 22:25:00 00:30:00 [facility] 2021-02-19 2021-02-20 Emergency [facility] 1.2.840.114 [id number] Univers 22:25:00 00:30:00 Radha Ontiveros 350.1.13.10 ity [facility] 4[place]2.7.2.[place] [phone] [facility] [address] [place] 2021-02-10 2021-02-10 Telephone Ousmane [facility] 1.2.987.192 [id number] [id number] Univers 00:00:00 00:00:00 Navi Ontiveros 350.1.13.10 ity [facility] 4[place]2.7.2.[place] [phone] [place] 751799 [facility] 2021-02-10 2021-02-10 Nurse NURYS Rankin 1.2.840.114 [id number] Univers 00:00:00 00:00:00 Triage Carmen VANCE 350.1.13.10 i ty of [facility] 4.2.7.2.686 Basilio as [phone] [facility] [address] [place] 2021-02-08 2021-02-08 Outpatient R NETTIE [facility] [id number] Univers 07:50:00 07:50:00 AVNI [facility] 2021-01-25 2021-01-25 Refill Ousmane [facility] 1.2.840.114 [id number] Univers 00:00:00 00:00:00 Navi Ontiveros 350.1.13.10 ity [facility] 4[place].2.[place] [phone] [facility] 059 [facility] 2021-01-22 2021-01-22 Outpatient R VISHNU VALIENTE [facility] 10 [id number] Univers 15:00:00 15:00:00 VISHNU VALIENTE i ty of [facility] 2021-01-11 2021-01-12 Emergency Kylee Kanika R [facility] 1.2.840. 114 [id number] Univers 20:43:00 04:47:00 Malika Mckeonton 350.1.13.10 ity of [place] [phone] [facility] [address] 2021-01-11 2021-01-11 Outpatient [facility] [id number] Univers 07:50:00 07:50:00 ity of [facility] 2021-01-11 2021-01-11 Nurse NURYS Herring 1.2.840.114 [id number] Univers 00:00:00 00:00:00 Triage Dayana THOMPSONY 350.1.13.10 it y [facility] 4.2.7.2.686 Basilio as [phone] [facility] [address] 2020-11-13 2020-11-13 Emergency [facility] 1.2.441.139 [id number] [id number] Univers 17:55:00 22:25:00 Selvin Paredes Rama 350.1.13.10 i [place] [phone] [facility] [address] [place] 2020-11-05 2020-11-05 Shop Estimator 2, Adc Lab [facility] 1.2.840.114 [id number] Univers 15:31:09 15:46:09 Visit Vishnu Valiente 350.1.13.10 it[place] of [place] [phone] Ny dical nal 353 [facility] 2020-11-05 2020-11-05 Office Steffanie [facility] 1.2.840.114 [id number] Univers 14:22:39 15:26:25 Visit Vishnu Ontiveros 350.1.13.10 i ty [place].2.[place] [phone] Ny dical nal 085 [facility] 2020-11-05 2020-11-05 Outpatient R VISHNU VALIENTE [facility] 10 [id number] Univers 14:40:00 14:40:00 VISHNU VALIENTE i ty of [facility] 2020-10-27 2020-10-27 Orders Doctor NURYS 1.2.840.114 [id number] Univers 00:00:00 00:00:00 Only Unassigned, WANDA 350.1.13.10 ity of [place] [facility] 4.2.7.2.686 Basilio as [phone] [address] 2020-10-23 2020-10-23 Letter [facility] 1.2.840.114 [id number] Univers 00:00:00 00:00:00 (Out) Navi Ontiveros 350.1.13.10 it[place] of [place] [phone] [address] 2020-10-22 2020-10-22 Telephone [facility] 1.2.080.712 [id number] Univers 00:00:00 00:00:00 Navi Ontiveros 350.1.13.10 it[place] [phone] [address] 2020-10-22 2020-10-22 Orders Doctor NURYS 1.2.840.114 [id number] Univers 00:00:00 00:00:00 Only Unassigned, WANDA 350.1.13.10 ity of [place] [facility] 4.2.7.2.686 Basilio as [phone] [address] 2020-10-17 2020-10-17 Emergency [facility] 1.2.229.917 [id number] Univers 15:08:00 22:39:00 Karla Ontiveros 350.1.13.10 ity of [place] [phone] [facility] [address] 2020-10-08 2020-10-08 Telephone [facility] 1.2.564.235 [id number] [id number] Univers 00:00:00 00:00:00 Vishnu Ontiveros 350.1.13.10 i ty [place] [phone] [address] 2020-10-08 2020-10-08 Telephone [facility] 1.2.139.060 [id number] Univers 00:00:00 00:00:00 Shiwan [place] 350.1.13.10 i ty [place] [phone] [address] 2020-10-02 2020-10-02 Office [facility] 1.2.840.114 [id number] Univers 09:32:59 10:14:43 Visit Navi Ontiveros 350.1.13.10 ity of [place].2.[place] [phone] [address] 2020-10-02 2020-10-02 Outpatient R OUSMANE [facility] [id number] Univers 10:00:00 10:00:00 [facility] 2020-09-30 2020-09-30 Telephone [facility] 1.2.915.701 [id number] [id number] Univers 00:00:00 00:00:00 Vishnu [place] 350.1.13.10 i ty of [place].2.[place] [phone] [address] 2020-09-28 2020-09-28 Telephone Ousmane [facility] 1.2.544.910 [id number] [id number] Univers 00:00:00 00:00:00 Sendil Magnolia Ontiveros 350.1.13.10 ity of [place].2.[place] [phone] [address] 2020-09-11 2020-09-11 Outpatient R [facility] [id number] Univers 13:30:00 13:30:00 ity [facility] 2020-09-01 2020-09-01 Outpatient R [facility] [id number] Univers 14:00:00 14:00:00 ity of [facility] 2020-08-28 2020-08-28 Orders Doctor NURYS 1.2.840.114 [id number] Univers 00:00:00 00:00:00 Only Unassigned, WANDA 350.1.13.10 ity of [place] [facility] 4.2.7.2.686 Basilio as [phone] [address] 2020-08-27 2020-08-27 Telephone [facility] 1.2.976.911 [id number] Univers 00:00:00 00:00:00 Navi Ontiveros 350.1.13.10 it[place] of [place] [phone] Ny dicga nal [address] [place] [address] 2020-08-24 2020-08-24 Office [facility] 1.2.840.114 [id number] Univers 10:39:32 11:28:59 Visit Navi Ontiveros 350.1.13.10 it[place].2.[place] [phone] [address] 2020-08-24 2020-08-24 Outpatient [facility] [id number] Univers 11:00:00 11:00:00 SENDIL ity [facility] 2020-08-24 2020-08-24 [place] [facility] 1.2.358.205 [id number] [id number] Univers 00:00:00 00:00:00 Navi Ontiveros 350.1.13.10 ity of [place].2.[place] [phone] Ny dic[address] 2020-08-19 2020-08-19 [place] [facility] 1.2.623.232 [id number] [id number] Univers 00:00:00 00:00:00 Navi Ontiveros 350.1.13.10 ity of [place].7.2.[place] [phone] Ny dical nal [address] [place] [address] 2020-08-10 2020-08-10 Telephone [facility] 1.2.168.882 [id number] 2008 Univers 00:00:00 00:00:00 Sendil Magnolia [place] 350.1.13.10 ity of [place] 4.2.7.2.[place] [phone] [address] 2020-08-10 2020-08-10 Larisa Romeo [facility] 1.2.840.114 [id number] Univers 00:00:00 00:00:00 Sendil Magnolia [place] 350.1.13.10 ity of [place] 4[place].2.[place] [phone] [address] 2020-08-07 2020-08-07 Outpatient R PORFIRIO [facility] [id number] Univers 10:00:00 10:00:00 TEJO ity of [facility] 2020-08-06 2020-08-06 Nurse Visit, [facility] Nurse [facility] .2.840.1 14 [id number] Univers 15:31:10 16:01:10 Visit Andrews Prieto 350.1.13.10 ity of [place].2.[place] [phone] [address] 2020-08-06 2020-08-06 Outpatient R CONNER [facility] [id number] Univers 16:00:00 16:00:00 ANDREWS whitaker o f [facility] 2020-08-05 2020-08-05 Office [facility] .2.840.114 [id number] Univers 10:16:39 10:46:04 Visit Gucci tse 350.1.13.10 ity of [place].2.[place] [phone] [address] Office Building 2020-08-05 2020-08-05 Outpatient R CLIFFORD [facility] [id number] Univers 10:20:00 10:20:00 GUCCI TSE it y of [facility] 2020-07-28 2020-07-29 Emergency Lenin Andersen [facility] 1.2.840. 114 [id number] Univers 19:19:00 12:00:00 Malika Mckeonton 350.1.13.10 ity [place] 4[place].2.[place] [phone] [facility] [address] 2020-07-23 2020-07-23 Outpatient R REE [facility] [id number] Univers 10:00:00 10:00:00 CLEMENTINE ity of [facility] 2020-07-23 2020-07-23 Orders Doctor NURYS 1.2.840.114 [id number] Univers 00:00:00 00:00:00 Only Unassigned, WANDA 350.1.13.10 it[place] of [place] [facility] 4.2.7.2.686 Basilio as [phone] [facility] [address] 2020-07-22 2020-07-22 Laboratory Only, Adc Test [facility] 1.2.840. 114 [id number] Univers 12:39:03 12:54:03 Only KitWin Rama 350.1.13.10 ity of [place].2.[place] [phone] [facility] [address] 2020-07-22 2020-07-22 Outpatient R [facility] [id number] Univers 12:45:00 12:45:00 ity of [facility] 2020-07-21 2020-07-21 Telephone Steffanie [facility] 1.2.617.922 [id number] Univers 00:00:00 00:00:00 Vishnu Ontiveros 350.1.13.10 i ty [place].2.[place] [phone] Ny dical nal [address] [place] [address] 2020-07-16 2020-07-16 Office Steffanie [facility] 1.2.840.114 [id number] Univers 13:25:28 14:30:54 Visit Vishnu Ontiveros 350.1.13.10 i ty [place] 4[place].2.[place] [phone] Ny dical nal [address] [place] [address] 2020-07-16 2020-07-16 Outpatient R VISHNU VALIENTE [facility] 10 [id number] Univers 13:40:00 13:40:00 VISHNU VALIENTE i ty [facility] 2020-07-15 2020-07-15 Office Leo [facility] 1.2.574.226 [id number] Univers 08:50:52 09:20:52 Visit Teofilo Ontiveros 350.1.13.10 ity of [place] 4.[place].2.[place] [phone] Ny dicga nal 085 [facility] 2020-07-15 2020-07-15 Outpatient R LEO TEOFILO [facility] [id number] Univers 09:00:00 09:00:00 LEO TEOFILO youssefy [facility] 2020-07-13 2020-07-13 Orders Doctor NURYS 1.2.840.114 [id number] Univers 00:00:00 00:00:00 Only Unassigned, WANDA 350.1.13.10 ity of [place] [facility] 4.2.7.2.686 Basilio as [phone] [address] 2020-06-26 2020-06-26 Office Siria [facility] 1.2.840.114 [id number] [facility] 09:41:27 10:20:15 Visit Hernesto Ontiveros 350.1.13.10 ity of [place].2.[place] [phone] [facility] 092 [facility] 2020-06-26 2020-06-26 Outpatient R HERNESTO BRIAN [facility] [id number] Univers 09:40:00 09:40:00 HERNESTO BRIAN [facility] 2020-06-22 2020-06-22 Orders Doctor NUNO 1.2.840.114 [id number] Univers 00:00:00 00:00:00 Only Unassigned, WANDA 350.1.13.10 ity of [place] [facility] 4.2.7.2.686 Basilio as [phone] [address] 2020-06-19 2020-06-19 Telephone Marialuisa Clayton 1.2.840.114 [id number] Univers 00:00:00 00:00:00 H 350.1.13.10 it y of [facility] 4.2.7.2.686 Basilio as [phone] [facility] [address] 2020-06-03 2020-06-03 Orders Doctor NURYS 1.2.840.114 [id number] Univers 00:00:00 00:00:00 Only Unassigned, WANDA 350.1.13.10 ity of [place] [facility] 4.2.7.2.686 Basilio as [phone] [facility] [address] [place] 2020-05-13 2020-05-13 Transition Collette Pool 1.2.840.114 [id number] Univers 00:00:00 00:00:00 of Care Catie Keen 350.1.13.10 i ty of [place].7.2.[place] [phone] [facility] [address] 2020-05-10 2020-05-12 Hospital Amado Padilla 1.2.840.114 [id number] Univers 10:02:00 17:50:00 Encounter Jose Alberts 350.1.13.10 ity of Hospital 4.2.7.2.686 Basilio as [phone] [facility] [address] 2020-04-29 2020-04-29 Telephone [facility] 1.2.867.085 [id number] Univers 00:00:00 00:00:00 Navi Ontiveros 350.1.13.10 ity of [place].2.[place] [phone] Ny dic[address] 2020-04-14 2020-04-14 Telephone [facility] 1.2.357.611 [id number] 2670 Univers 00:00:00 00:00:00 Navi Ontiveros 350.1.13.10 it[place].7.2.[place] [phone] Ny dicga nal [address] [place] [address] 2020-04-14 2020-04-14 Orders Doctor NURYS 1.2.840.114 [id number] Univers 00:00:00 00:00:00 Only Unassigned, WANDA 350.1.13.10 ity of [place] [facility] 4.2.7.2.686 Basilio as [phone] [address] 2020-04-10 2020-04-10 Office Ousmane [facility] 1.2.840.114 [id number] Univers 09:43:51 10:36:50 Visit Navi Ontiveros 350.1.13.10 ity of [place] 4[place].7.2.[place] [phone] [address] 2020-04-10 2020-04-10 [facility] [id number] Univers 10:00:00 10:00:00 SENDIL ity [facility] 2020-03-24 2020-03-25 Emergency Marline, Martin B [facility] 1.2.840 .114 [id number] Univers 18:35:14 09:52:00 Chuy Armstrong 350.1.13.10 ity of [place].2.[place] [phone] [facility] [address] 2020-03-20 2020-03-20 Nurse Visit, [facility] Nurse [facility] 1.2.840.1 14 [id number] Univers 13:19:22 21:03:26 Visit Navi Romeo 350.1.13. 10 ity of [place].2.7.2.[place] [phone] [address] 2020-03-20 2020-03-20 Outpatient R OUSMANE [facility] [id number] Univers 13:30:00 13:30:00 SENDIL ity [facility] 2020-03-13 2020-03-13 Orders Doctor NURYS 1.2.840.114 [id number] Univers 00:00:00 00:00:00 Only Unassigned, WANDA 350.1.13.10 ity of [place] [facility] 4.2.7.2.686 Basilio as [phone] [address] 2020-02-20 2020-02-20 [facility] Gucci Joshi 1. 2.840.114 [id number] Univers 09:00:00 23:59:00 Encounter Anesthesia-Yana, Ep Lab Wanda 350.1 .13.10 ity of Outpt-Yana, Ep Lab [facility] 4.2.7.2.686 [place] [phone] [address] 2020-02-20 2020-02-20 Anesthesia Abimbola Marienie 1.2.840. 114 [id number] Univers 15:59:00 18:03:00 Shawn Rosas Wanda 350.1.13.10 ity of [facility] 4.2.7.2.686 Basilio as [phone] [address] 2020-02-20 2020-02-20 Outpatient R CLIFFORD [facility] [id number] Univers 09:00:00 09:00:00 GUCCI TSE it y of [facility] 2020-02-18 2020-02-18 Laboratory Only, Adc Test [facility] 1.2.840. 114 [id number] Univers 07:59:15 08:14:15 Only Gucci Joshi 350.1. 13.10 ity of [place] 4.2.7.2.[place] [facility] [phone] Ny dical [facility] [address] [facility] 2020-02-18 2020-02-18 Outpatient R [facility] [id number] Univers 08:00:00 08:00:00 ity of [facility] 2020-02-18 2020-02-18 Telephone Levideannjeet [facility] 1.2.840.114 [id number] Univers 00:00:00 00:00:00 Gucci tse HEALTH 350.1.13.10 it[place] of [place].7.2.[place] [facility] [phone] [facility] Primary & [facility] 2020-02-18 2020-02-18 Telephone Levideannjeet [facility] 1.2.840.114 [id number] Univers 00:00:00 00:00:00 Gucci tse Health 350.1.13.10 ity of [place] 4.2.7.2.[place] [phone] [place] [address] [address] Office [address] 2020-02-18 2020-02-18 Telephone Clifford Bhatia 1.2.840.114 [id number] Univers 00:00:00 00:00:00 Gucci tse 350.1.13.10 ity of Hospital 4.2.7.2.686 Basilio as [phone] [place] [address] [address] 2019-12-19 2019-12-19 Outpatient R CLIFFORD [facility] [id number] Univers 09:00:00 09:00:00 GUCCI TSE it y of [facility] 2019-12-18 2019-12-18 Patient Morgan [facility] 1.2.840.114 [id number] Univers 00:00:00 00:00:00 Secure Msg Silverio HEALTH 350.1.13.10 ity of [place].7.2.[place] [phone] [facility] Primary & [address] [facility] 2019-12-18 2019-12-18 Telephone Clifford Bhatia 1.2.840.114 [id number] Univers 00:00:00 00:00:00 Gucci tse 350.1.13.10 ity of [facility] 4.2.7.2.686 Basilio as [phone] [address] 2019-12-16 2019-12-16 Telephone Clifford [facility] 1.2.840.114 [id number] Univers 00:00:00 00:00:00 Gucci tse 350.1.13.10 ity of [place].2.7.2.[place] [phone] [place] [address] [address] Office Building 2019-12-13 2019-12-13 Telephone Ousmane [facility] 1.2.316.953 [id number] Univers 00:00:00 00:00:00 Navi Ontiveros 350.1.13.10 ity of [place].2.[place] [phone] Ny dical [facility] Branch Building 2019-12-12 2019-12-12 Telephone Blessingraffaelejeet Jannette 1.2.840.114 [id number] Univers 00:00:00 00:00:00 Gucci tse 350.1.13.10 ity of [facility] 4.2.7.2.686 Basilio as [phone] [place] [address] [address] 2019-12-10 2019-12-10 Shop Estimator 2, Adc Lab [facility] 1.2.840.114 [id number] Univers 15:05:33 15:20:33 Visit Navi Romeo 350.1.13. 10 ity of [place].7.2.[place] [phone] Ny dical nal 353 [facility] 2019-12-10 2019-12-10 Office Ousmane [facility] 1.2.840.114 [id number] Univers 13:51:26 14:58:10 Visit Navi Ontiveros 350.1.13.10 ity of [place].2.[place] [phone] Ny dical nal 059 [facility] 2019-12-10 2019-12-10 Outpatient R OUSMANE [facility] [id number] Univers 14:30:00 14:30:00 SENDIL ity [facility] 2019-12-10 2019-12-10 Orders Doctor NUNO 1.2.840.114 [id number] Univers 00:00:00 00:00:00 Only Unassigned, WANDA [id number] [facility] [id number] Basilio as [phone] [address] 2019-12-09 2019-12-09 Outpatient R [facility] [id number] Univers 15:00:00 15:00:00 ity [facility] 2019-12-02 2019-12-02 Office Shekhar [facility] 1.2.840.114 [id number] Univers 10:34:53 11:13:36 Visit Tera Ontiveros [id number] i [id number] [phone] Ny dical nal 204 [facility] 2019-12-02 2019-12-02 [facility] [id number] Univers 11:00:00 11:00:00 TERA ity [facility] 2019-11-27 2019-11-27 Orders Doctor NUNO 1.2.840.114 [id number] Univers 00:00:00 00:00:00 Only Unassigned, WANDA [id number] ity of [place] [facility] [id number] Basilio as [phone] [address] 2019-11-26 2019-11-26 [id number] Univers 11:20:00 11:20:00 GUCCI TSE y of [facility] 2019-11-26 2019-11-26 Office [facility] 1.2.840.114 [id number] Univers 10:12:22 10:32:22 Visit Gucci tse [facility] [id number] ity [id number] [phone] [place] [id number] [place] [facility] 2019-11-22 2019-11-22 Outpatient R [facility] [id number] Univers 13:15:00 13:15:00 ity of [facility] 2019-11-16 2019-11-16 [facility] 1.2.840.114 [id number] Univers 17:37:27 19:09:00 Apple [place] [id number] ity [place] [id number] [place] [facility] [phone] [facility] [address] [place] 2019-11-16 2019-11-16 Emergency [facility] [id number] Univers 17:37:27 19:09:00 FOLUSHO ity of [facility] 2019-11-16 2019-11-[address] [facility] [id number] Univers 17:37:27 19:09:00 FOLUSHO ity of [facility] 2019-11-16 2019-11-16 Orders Doctor NUNO 1.2.840.114 [id number] Univers 00:00:00 00:00:00 Only Unassigned, WANDA 350.1.13.10 ity of [place] [facility] 4.2.7.2.686 Basilio as [phone] [address] 2019-11-12 2019-11-12 Orders Doctor NUNO 1.2.840.114 [id number] Univers 00:00:00 00:00:00 Only Unassigned, WANDA 350.1.13.10 ity of [place] [facility] 4.2.7.2.686 Basilio as [phone] [facility] [address] 2019-11-06 2019-11-07 Emergency Morrical, TRAUMA 1.2.840.114 [id number] Univers 20:10:11 02:33:00 Armando [facility] 350.1.13.10 [place] [phone] [facility] [address] 2019-11-06 2019-11-07 Emergency X MORRICAL, [facility] ERT [id number] Univers 20:10:11 02:33:00 ARMANDO ity [facility] 2019-11-06 2019-11-07 Emergency X MORRICAL, [facility] ERT [id number] Univers 20:10:11 02:33:00 [facility] 2019-11-06 2019-11-06 Nurse Ileana NUNO 1.2.840.114 [id number] Univers 00:00:00 00:00:00 Triage dDeja 350.1.13.10 ity of [facility] 4.2.7.2.686 Basilio as [phone] [facility] [address] [place] 2019-11-04 2019-11-04 Telephone Ousmane [facility] 1.2.671.554 [id number] Univers 00:00:00 00:00:00 Navi Ontiveros 350.1.13.10 it[place] of [place] [phone] [place] [address] [address] [facility] 2019-11-04 2019-11-04 Telephone Clifford [facility] 1.2.840.114 [id number] Univers 00:00:00 00:00:00 [facility] 350.1.13.10 [place] [phone] [address] Office Building 2019-11-02 2019-11-02 Refill Ousmane [facility] 1.2.840.114 [id number] Univers 00:00:00 00:00:00 Navi Ontiveros 350.1.13.10 ity of [place] [phone] Ny dical nal 059 [facility] 2019-10-31 2019-10-31 Transition Collette Pool 1.2.840.114 [id number] Univers 00:00:00 00:00:00 of Care Catie Keen 350.1.13.10 i ty of [place]7.2.[place] [phone] [facility] [address] 2019-10-28 2019-10-30 Hospital Veronica Chevy Bita [facility] 1.2.840.1 14 [id number] Univers 15:18:49 15:27:00 Encounter Chuy [facility] 350.1.13.10 ity of [place] 4.2.7.2.686 [place] Stack [phone] [facility] [address] ([facility]) 2019-10-28 2019-10-28 Telephone CarHaxiu.comnnopo [facility] 1.2.840.114 [id number] Univers 00:00:00 00:00:00 Gucci tse GrexIt 350.1.13.10 it[place] [phone] [place] [address] [place] Office Building 2019-10-28 2019-10-28 Telephone CarHaxiu.comnnopo [facility] 1.2.840.114 [id number] Univers 00:00:00 00:00:00 Gucci tse GrexIt 350.1.13.10 [place] [phone] [address] Office Building 2019-10-10 2019-10-10 Telephone Al [facility] 1.2.534.702 [id number] Univers 00:00:00 00:00:00 Brit, ANDRA 350.1.13.10 ity of [place] CARE 4.2.7.2.686 Basilio as CENTER AT [phone] Ny dical VICTORY 072 [facility] 2019-10-08 2019-10-08 Office Carayannopo [facility] 1.2.840.114 [id number] Univers 08:25:08 09:54:25 [facility] 350.1.13.10 [place] [phone] [address] Office Building 2019-10-07 2019-10-07 Telephone Al [facility] 1.2.593.199 [id number] Univers 00:00:00 00:00:00 Brit, SPECIALTY 350.1.13.10 ity of [facility] 4.2.7.2.686 Basilio as CENTER AT [phone] Ny jass SCHMIDTY [address] [place] [address] 2019-09-28 2019-09-28 Emergency X ALIZA [facility] ERT [id number] Univers 16:26:45 18:51:00 RADHA [facility] 2019-08-25 2019-08-25 Emergency X LETI [facility] ERT [id number] Univers 17:05:08 22:20:00 KARLA [facility] 2019-05-17 2019-06-06 Nurse Visit, Adc Nurse [facility] 1.2.840.1 14 [id number] Univers 13:03:18 13:00:43 Visit Navi Romeo 350.1.13. 10 ity of [place] [facility] [phone] Ny jass nal [address] [place] [address] 2019-05-30 2019-05-30 [facility] 1.2.633.826 [id number] Univers 17:28:30 19:30:00 Tucker Ontiveros 350.1.13.10 i ty of [place] [phone] [place] [address]04 [place] 2019-05-30 2019-05-30 Orders Doctor NURYS 1.2.840.114 [id number] Univers 00:00:00 00:00:00 Only Unassigned, WANDA 350.1.13.10 ity of [place] [facility] 4.2.7.2.686 Basilio as [phone] [facility] [address] [place] 2019-05-30 2019-05-30 Telephone Ousmane [facility] 1.2.871.303 [id number] Univers 00:00:00 00:00:00 Navi Ontiveros 350.1.13.10 ity of [place] [phone] Ny jass burden 9 [facility] 2019-05-29 2019-05-29 Telephone Romeo, [facility] 1.2.592.649 [id number] Univers 00:00:00 00:00:00 Navi Merida [facility] 350.1.13.10 ity of [place].7.2.[place] [facility] [phone] [facility] Primary & [address] Specialty Care 2019-05-21 2019-05-21 Telephone [facility] 1.2.708.845 [id number] Univers 00:00:00 00:00:00 Navi Ontiveros 350.1.13.10 ity of [place] [phone] Ny rakelga bertram [address] [place] [address] 2019-05-20 2019-05-20 Telephone Al [facility] 1.2.163.066 [id number] Univers 00:00:00 00:00:00 Brit, SPECIALTY 350.1.13.10 ity of [facility] 4.2.7.2.686 Basilio as CENTER AT [phone] Ny jass LORANENessa [address] [place] [address] 2019-05-17 2019-05-17 [facility] 1.2.840.114 [id number] Univers 11:20:13 13:04:27 Visit Navi Ontiveros 350.1.13.10 ity of [place] [phone] Ny jass burden [address] [place] [address] 2019-05-16 2019-05-16 Orders Doctor NURYS 1.2.840.114 [id number] Univers 00:00:00 00:00:00 Only Unassigned, WANDA 350.1.13.10 ity of [place] [facility] 4.2.7.2.686 Basilio as [phone] [facility] [address] 2019-05-16 2019-05-16 Telephone Al [facility] 1.2.555.621 [id number] Univers 00:00:00 00:00:00 Brit, SPECIALTY 350.1.13.10 ity of [place] CARE 4.2.7.2.686 Basilio as CENTER AT [phone] Ny jass KRISHNAMURTHY [address] [place] [address] 2019-05-02 2019-05-02 Office Al [facility] 1.2.840.114 [id number] Univers 08:21:14 09:21:07 Visit Brit, SPECIALTY 350.1.13.10 ity of [place] CARE 4.2.7.2.686 Basilio as CENTER AT [phone] Ny jass KRISHNAMURTHY [address] [place] [address] 2019-04-29 2019-04-29 Emergency Chaoman, [facility] 1.2.840.114 [id number] Univers 21:30:23 23:42:00 Fauzia Matilde Ontiveros 350.1.13.10 ity of [place] [phone] [address] 2019-04-25 2019-04-26 Emergency Yariar, [facility] 1.2.686.334 [id number] Univers 23:02:39 01:24:00 Sammy Ontiveros 350.1.13.10 ity of [place]2.[place] [phone] [address] 2019-04-26 2019-04-26 Larisa Brian [facility] 1.2.840.114 [id number] Univers 00:00:00 00:00:00 Hernesto Ontiveros 350.1.13.10 ity of [place] [phone] Ny dicga nal [address] [place] [address] 2019-04-24 2019-04-24 Larisa Brian [facility] 1.2.840.114 [id number] Univers 00:00:00 00:00:00 Hernesto Ontiveros 350.1.13.10 ity of [place] [phone] [address] 2019-04-23 2019-04-23 Larisa Brian [facility] 1.2.840.114 [id number] Univers 00:00:00 00:00:00 Hernesto Ontiveros 350.1.13.10 ity of [place] 4[place]2.7.2.[place] [phone] [place] 355462 [facility] 2019-04-22 2019-04-22 Office Siria [facility] 1.2.840.114 [id number] Univers 14:31:27 15:41:53 Visit Hernesto Ontiveros 350.1.13.10 ity of [place].2.[place] [phone] [address] 2019-04-22 2019-04-22 Orders Doctor NURYS 1.2.840.114 [id number] Univers 00:00:00 00:00:00 Only Unassigned, WANDA 350.1.13.10 ity of [place] [facility] 4.2.7.2.686 Basilio as [phone] [place] [address] [address] 2017-09-06 2017-09-08 Inpatient [facility] [id number] 10:12:00 02:32:00 [facility] Results Test Description Test Time Test Comments Results Result Comments Source TROPONIN I 2022-06-21 05:52:34 Test Item Value Reference Range Interpretation Comme nts TROPONIN I (test code = See_Comment [Au tomated message] The [id number]) system which ge nerated this result tra [...] biotin. Lab Interpretation Normal (test code = 51391-5) [facility] [id number] 03:23:34 Test Item Value Reference Interpretation Comments Range TROPONIN I (test See_Comment [Automated code = 3635013733) message] The system which generated this result [...] biotin. Lab Interpretation Normal (test code = 83967-2) [facility] [place] [facility] [id number] 03:20:37 Test Item Value Reference Range Interpretation Comments NT-proBNP (test code 46 pg/mL See_Comment [Autom ated = 2471254046) message] The system which generated this result transmitted reference range : <=125. The reference range was not used to interpret this result as normal/abnormal . SOMMER (test code = SOMMER) Biotin has been reported to cause a negative bias, interpret results relative to patient's use of biotin. Lab Interpretation Normal (test code = 89172-6) [facility] [place] [facility]2022-09-27 03:12:18 Test Item Value Reference Range Interpretation Comments MAGNESIUM (test code = 8934201729) 2.2 mg/dL 1.7-2.4 Lab Interpretation (test code = Normal 78173-6) [facility] METABOLIC PANEL ([id number])2022-06-21 03:12:12 Test Item Value Reference Range Interpretation Comments NA (test code = 140 mmol/L 135-145 4615782945) K (test code = 4.3 mmol/L 3.5-5 6108183838) CL (test code = 106 mmol/L 98-108 3899911575) CO2 TOTAL (test code 25 mmol/L 23-31 = 8212769568) AGAP (test code = 2-16 3281721618) BUN (test code = 11 mg/dL 7-23 5594395428) GLUCOSE (test code = 96 mg/dL 70-110 2566100544) CREATININE (test code 0.64 mg/dL 0.5-1.04 = 4096322320) TOTAL BILI (test code 0.4 mg/dL 0.1-1.1 = 9746939655) CALCIUM (test code = 9.4 mg/dL 8.6-10.6 4455171141) T PROTEIN (test code 7.2 g/dL 6.3-8.2 = 6236606401) ALBUMIN (test code = 4.4 g/dL 3.5-5 6712588305) ALK PHOS (test code = 98 U/L 34-122 0256444578) ALTv (test code = 23 U/L 5-35 1742-6) AST(SGOT) (test code 26 U/L 13-40 = 9641723875) eGFR (test code = mL/min/1.73m2 1063144190) SOMMER (test code = SOMMER) Association of Glomerular Filtration Rate (GFR) and Staging of Kidney Disease* + + +- +| GFR (mL/min/1.73 m2) ?| With Kidney Damage ?| ?Without Kidney Damage+ ------+ ----+ ------+| ?>90 ?| ?Stage one ?| ? Normal ?+ -+ + -+| ?60-89 ?| ?Stage two ?| ? Decreased GFR ? + + +- +| ?30-59 ?| ?Stage three ?| ? Stage three ? + + +- +| ?15-29 ?| ?Stage four ? | ? Stage four ?+ -+ + -+| ?<15 (or dialysis) ? ?| ?Stage five ? | ? Stage five ?+ -+ + -+ *Each stage assumes the associated GFR level [...] or urine or abnormalities in imaging tests). [facility] WITH [id number] 03:02:31 Test Item Value Reference Range Interpretation Comments WBC (test code = See_Comment [Automated message] 6690-2) The system [employer] generated this result transmitted ref erence range: 4.30 - 1 1.10 10*3/?L. The re ference range was not u sed to interpret this result as normal/abnor mal. RBC (test code = See_Comment [Automated message] 789-8) The system [employer] generated this result transmitted ref erence range: 3.93 - 5 .25 10*6/?L. The re ference range was not u sed to interpret this result as normal/abnor mal. HGB (test code = 13.6 g/dL 11.6-15 718-7) HCT (test code = 39.8 % 35.7-45.2 4544-3) MCV (test code = 86.0 fL 80.6-95.5 787-2) MCH (test code = 29.4 pg 25.9-32.8 785-6) MCHC (test code = 34.2 g/dL 31.6-35.1 786-4) RDW-SD (test code 40.2 fL 39-49.9 = 77234-2) RDW-CV (test code 13.0 % 12-15.5 = 788-0) PLT (test code = See_Comment [Automated message] 777-3) The system [employer] generated this result transmitted ref erence range: 166 - 35 8 10*3/?L. The re ference range was not u sed to interpret this result as normal/abnor mal. MPV (test code = 10.3 fL 9.5-12.9 73923-8) NRBC/100 WBC (test See_Comment [Automat ed message] code = 4031866160) The syste m which generated this result transmitted ref erence range: 0.0 - 10 .0 /100 WBCs. The refer ence range was not u sed to interpret this result as normal/abnor mal. NRBC x10^3 (test See_Comment [Automated message] code = 6458157507) The syste m which generated this result transmitted ref erence range: 10*3/?L. The reference range was not used to interpr et this result as normal/abnormal . GRAN MAT (NEUT) % 57.2 % (test code = 770-8) IMM GRAN % (test 0.30 % code = 3373307538) LYMPH % (test code 31.9 % = 736-9) MONO % (test code 9.1 % = 5905-5) EOS % (test code = 1.2 % 713-8) BASO % (test code 0.3 % = 706-2) GRAN MAT 3.40 10*3/uL 1.88-7.09 x10^3(ANC) (test code = 5297179878) IMM GRAN x10^3 0-0.06 (test code = 1322465472) LYMPH x10^3 (test 1.90 10*3/uL 1.32-3.29 code = 731-0) MONO x10^3 (test 0.54 10*3/uL 0.33-0.92 code = 742-7) EOS x10^3 (test 0.07 10*3/uL 0.03-0.39 code = 711-2) BASO x10^3 (test 0.01-0.07 code = 704-7) [facility] 12 [id number] 14:56:41 Test Item Value Reference Range Interpretation Comments Ventricular rate (test code = 253) Atrial rate (test code = 255) AR interval (test code = 266) QRSD interval [...] 17-MAR-2021 15:19,-No significant change was found- [facility] [id number] 12:41:23 Test Item Value Reference Range Interpretation Comments Urine culture isolate Mixed alok <=10-3 (test code = 52693-7) col/cc [facility]an[facility] Echocardiogram Complete, (w Contrast, Strain and 3D if needed)2021-03-18 23:04:52 Test Item Value Reference Range Interpretation Comments Ao Root Diameter (test code = 2.73 cm 4548125309) AoV Area, Vmax (test code = 2.24 cm2 6908576279) AoV Area, VTI (test code = 2.25 cm2 5140373415) AoV Mean PG (test code = mmHg 7410686098) AoV Peak PG (test code = mmHg 5051231606) AoV Vmax (test code = 9505704067) 1.46 m/s AoV VTI (test code = 2186041820) 0.28 m IVS,d (test code = 8222785321) 0.72 cm IVS/LVPW,2D (test code = 7600192240) Left Atrium Dimension Anterior 2.68 cm (test code = 8026369732) LV,d (test code = 2660433106) 3.69 cm LV EF,2D (test code = 8521773385) 79.68 % LV,s (test code = 1283042488) 2.17 cm LVOT area (test code = 4991501064) 2.75 cm2 LVOT Diam,S (test code = 1.87 cm 8189079466) LVOT Vmax (test code = 8909048077) 1.18 m/s LVOT VTI (test code = 8419926481) 0.23 m LVPWD,d (test code = 6877108162) 0.65 cm PV Pk Grad (test code = 8971897576) mmHg PV VMAX (test code = 6347616928) 0.84 m/s RVOT Vmax (test code = 7270450822) 0.85 m/s RVSP (TR) (test code = 3126450389) mmHg TR Vpeak (test code = 0548703591) 2.86 mm/s MV E A ratio (test code = 6071902375) RA pressure (test code = mmHg 0150204488) TR pk grad (test code = 6247263710) mmHg MR Vmax (test code = 4210004678) 5.49 m/s E wave decelartion time (test code msec = 1795923934) MV Peak A Alf (test code = 0.76 m/s 9688088043) MV valve area p 1/2 method (test 3.26 cm2 code = 2449956123) MV Peak E Alf (test code = 0.92 m/s 2116068504) MV stenosis pressure 1/2 time (test 67.54 ms code = 7940604548) LVOT stroke volume (test code = 0.63 cm3 6481650897) AV LVOT peak gradient (test code = mmHg 8105169601) RVSP (test code = 9300651885) mmHg Ao Root Diameter (test code = 2.73 cm 0967966750) MV mean gradient (test code = mmHg 9595904492) LV SYS VOL (test code = 5119187009) 15.61 ml LV MARTINS VOL (test code = 57.63 ml 7524052287) LA area s A4C (test code = 11.16 cm2 7948160747) LV SV Teich 2D (test code = 42.02 ml 3633415097) LV Vol s Teich PSAX (test code = 15.61 ml 9961184397) MR peak grad (test code = mmHg 7713005923) MV Vmax (test code = 8091550893) 1.21 m MV VTI Tips (test code = 0.24 m 7166470745) RVOT pk grad (test code = mmHg 0011272827) AoV Vmn (test code = 8522730167) LV FS Teich 2D (test code = 7722402446) MV AE ratio (test code = 9938316061) LV FS Cube 2D (test code = 6727195625) LVOT Vmn (test code = 6177879617) Aov area Vmn (test code = 2.13 cm2 6465053146) LVOT mean grad (test code = mmHg 9294533430) MAX Pred HR (test code = 7585310023) 85 of MPHR (test code = 1398331180) Calc MPHR (test code = 0790105127) bpm LV SV Cube 2D (test code = 39.93 ml 3737689415) LV vol d cube 2D (test code = 50.11 ml 6134855460) LV vol s cube 2D (test code = 10.18 ml 3312256487) MV Decel slope (test code = 3.97 m/s2 2307133801) Pred Exer Dur R1 (test code = 5221839139) Pred METS R1 (test code = 5042743161) LA Vol MOD A4C (test code = 24.20 ml 9208283527) Velocity Ratio (V1/V2) (test code = 0.81 m/s 4689) EF (test code = 7645811040) 72.91 % E/A ratio (test code = 2491241023) LVOT VTI (CM) (test code = 23.00 cm 7963960216) SOMMER (test code = SOMMER) [facility] [id number] 17:32:37 Test Item Value Reference Range Interpretation Comments POC glucose (test code = 88398-2) 207 mg/dL 65-99 H Lab Interpretation (test code = Abnormal 30981-6) [facility] duplex venous lower [id number] 01:17:37 EXAMINATION: US DUPLEX VENOUS LOWER EXTREMITY [...] is no evidence of deep venous thrombosis. [facility]-[id number] Interface, Radiology Results - 03/17/2021 8:20 PM CDT EXAMINATION: US DUPLEX VENOUS LOWER EXTREMITY BILATERALCLINICAL HISTORY: [...] There is no evidence of deep venous thrombosis.[facility]-[id number] HospitalXR Chest 1 Vw [id number] 21:32:52EXAMINATION: XR CHEST 1 VW PORTABLE CLINICAL HISTORY: 40 years Female SOB COMPARISON: None. IMPRESSION: Lines, tubes, and devices: Right-sided transvenous cardiac pacemaker. Heart and mediastinum: Cardiomediastinal silhouette is normal. Lungs and pleura: There is no focal airspace disease, pleural effusion or pneumothorax. Bones/soft tissues: No acute osseous abnormality. [facility]-[id number] Dictated and approved by medical transcription radiology/fellow: Critshian Calixto M.D. I, Jan Scott MD, personally reviewed the images and resident's/fellow's findings and agree with the final report.[facility], Radiology Results Incoming - 03/17/2021 4:35 PM CDT EXAMINATION: XR CHEST 1 VW PORTABLECLINICAL HISTORY: 40 years Female SOBCOMPARISON: None.IMPRESSION:Lines, tubes, and devices: Right-sided transvenous cardiac pacemaker.Heart and mediastinum: Cardiomediastinal silhouette is normal.Lungs and pleura: There is no focal airspace disease, pleural effusion or pneumothorax.Bones/soft tissues: No acute osseous abnormality.[facility]-[id number] and approved by medical transcription radiology/fellow: Aleksandra Sanchez, Jan Scott MD, personally reviewed theimages and resident's/fellow's findings and agree with the final report.[facility]YTHMIA IMPLANT REPORT - [id number] 20:45:31 Ordered by an unspecified provider.[facility] Preliminary Interpretation - Not an [id number] 20:36:46 Test Item Value Reference Range Interpretation Comments SOMMER (test code = SOMMER) Lab Interpretation (test code = Abnormal 18853-2) [facility] Metabolic [id number] 07:01:00 Test Item Value Reference Range Interpretation Comments Sodium (test code = 137 meq/L 721-773 2975-2) Potassium (test code = 4.3 meq/L 3.5-5.1 2823-3) Chloride (test code = 104 meq/L 98-107 2075-0) CO2 (test code = 24 meq/L 22-29 2028-9) BUN (test code = 15 mg/dL 7-21 3094-0) Creatinine (test code 0.81 mg/dL 0.57-1.25 = 2160-0) Glucose (test code = 108 mg/dL 70-105 H 2345-7) Calcium (test code = 9.2 mg/dL 8.4-10.2 44773-1) EGFR (test code = 79 mL/min/1.73 sq m [facility] [place] [address]-4) NOT ACCURATE CREATININE CLEARANCE IN PREDICTING GLOMERULAR FILTRATION RATE . ESTIMATED GFR I S NOT APPLICABLE FOR DIALYSIS PATIENTS. SOMMER (test code = SOMMER) Ping Pong Table Assembler ID - PIAYA L Lab Interpretation Abnormal (test code = 79882-0) [facility] Center[facility]esium2021-05-21 07:01:00 Test Item Value Reference Range Interpretation Comments Magnesium (test code = 2.5 mg/dL 1.6-2.6 53521-1) SOMMER (test code = SOMMER) Ping Pong Table Assembler ID - PIAYA L Lab Interpretation (test Normal code = 79849-5) [facility] Center[facility]osphorus2021-05-21 07:01:00 Test Item Value Reference Range Interpretation Comments Phosphorus (test code = 4.3 mg/dL 2.3-4.7 2777-1) SOMMER (test code = SOMMER) Ping Pong Table Assembler ID - PIAYA L Lab Interpretation (test Normal code = 92448-6) [facility] CenterBASIC METABOLIC [id number] 07:01:00 Test Item Value Reference Range Interpretation [...] S NOT APPLICABLE FOR DIALYSIS PATIEN TS. Ping Pong Table Assembler ID - PIDEANN [id number] 07:01:00 Test Item Value Reference Range Interpretation Comments MAGNESIUM (BEAKER) (test code = 2.5 mg/dL 1.6-2.6 627) Ping Pong Table Assembler ID - MACHELLE [id number] 07:01:00 Test Item Value Reference Range Interpretation Comments PHOSPHORUS (BEAKER) (test code = 4.3 mg/dL 2.3-4.7 604) Ping Pong Table Assembler ID - MACHELLE LCBC with platelet count + automated [id number] 05:37:00 Test Item Value Reference Range Interpretation Comments WBC (test code = 6690-2) 6.8 See_Comment [A utomated message] The system [employer] generated this result transmitted ref erence range: 3.5 - 10 .5 K/L. The refe rence range was not u sed to interpret this result as normal/abnor mal. RBC (test code = 789-8) 5.14 See_Comment [Au tomated message] The system [employer] generated this result transmitted ref erence range: 3.93 - 5 .22 M/L. The refe rence range was not u sed to interpret this result as normal/abnor mal. MCHC (test code = 786-4) 31.6 See_Comment L [A utomated message] The system [employer] generated this result transmitted ref erence range: [...] See_Comment [Aut omated message] 777-3) The system [employer] generated this result transmitted ref erence range: 150 - 45 0 K/CU MM. The referen ce range was not u sed to interpret this result as normal/abnor mal. MPV (test code = 10.0 fL 9.4-12.3 72555-4) nRBC (test code = 413) 0 See_Comment [Aut omated message] The system [employer] generated this result transmitted ref erence range: [...] See_Comment [Aut omated message] 670) The system [employer] generated this result transmitted ref erence range: 1.56 - 6 .13 K/L. The refe rence range was not u sed to interpret this result as normal/abnor mal. # Lymphs (test code = 2.10 See_Comment [Auto mated message] 414) The system [employer] generated this result transmitted ref erence range: 1.18 - 3 .74 K/L. The refe rence range was not u sed to interpret this result as normal/abnor mal. # Monos (test code = 0.48 See_Comment H [Autom ated message] 415) The system [employer] generated this result transmitted ref erence range: 0.24 - 0 .36 K/L. The refe rence range was not u sed to interpret this result as normal/abnor mal. # Eos (test code = 416) 0.26 See_Comment [Au tomated message] The system [employer] generated this result transmitted ref erence range: 0.04 - 0 .36 K/L. The refe rence range was not u sed to interpret this result as normal/abnor mal. # Baso (test code = 417) 0.04 See_Comment [A utomated message] The system [employer] generated this result transmitted ref erence range: 0.01 - 0 .08 K/L. The refe rence range was not u sed to interpret this result as normal/abnor mal. Immature 1 % 0-1 Granulocytes-Relative (test code = 2801) Lab Interpretation (test Abnormal code = 26041-3) [facility] W/PLT COUNT & AUTO [id number] 05:37:00 Test Item Value Reference Range Interpretation [...] code = 2801) MR, MRA, BRAIN, WITHOUT [id number] 16:54:00Reason for exam:->Ischemic Stroke EvaluationVENCOR [facility]Name: [facility] : 1980 Sex: FFINAL REPORT MR, BRAIN, WITHOUT CONTRAST, MR, MRA, BRAIN, WITHOUT CONTRAST, MR, MRA, NECK, WITHOUT IV CONTRAST INDICATION: Stroke, follow upIschemic Stroke Evaluation TECHNIQUE: Multiplanar, multisequence MR imaging of the brain without intravenous contrast.MRA of the head utilizing 3-D qbba-jg-tvpofo technique, with 3-D reconstructions.MRA of the neck utilizing 2-D and 3-D bglc-tv-vljywq technique, with 3-D reconstructions. COMPARISON: MRI and [...] 02/11/2021 16:54:16 MR, MRA, NECK, WITHOUT IV [id number] 16:54:00Reason for exam:->Ischemic Stroke Evaluation [facility] : 1980 Sex: FFINAL REPORT MR, BRAIN, WITHOUT CONTRAST, MR, MRA, BRAIN, WITHOUT CONTRAST, MR, MRA, NECK, WITHOUT IV CONTRAST INDICATION: Stroke, follow upIschemic Stroke Evaluation TECHNIQUE: Multiplanar, multisequence MR imaging of the brain without intravenous contrast.MRA of the head utilizing 3-D dzdw-tm-lxhcoc technique, with 3-D reconstructions.MRA of the neck utilizing 2-D and 3-D rplw-nd-tzfhyo technique, with 3-D reconstructions. COMPARISON: MRI and [...] Verified Date/Time: 02/11/2021 16:54:16 MR, BRAIN, WITHOUT [id number] 16:54:00Reason for exam:->Ischemic Stroke Evaluation [facility] : 1980 Sex: FFINAL REPORT MR, BRAIN, WITHOUT CONTRAST, MR, MRA, BRAIN, WITHOUT CONTRAST, MR, MRA, NECK, WITHOUT IV CONTRAST INDICATION: Stroke, follow upIschemic Stroke Evaluation TECHNIQUE: Multiplanar, multisequence MR imaging of the brain without intravenous contrast.MRA of the head utilizing 3-D zioz-ff-unudcs technique, with 3-D reconstructions.MRA of the neck utilizing 2-D and 3-D pzve-rp-bkmjfw technique, with 3-D reconstructions. COMPARISON: MRI and [...] Date/Time: 02/11/2021 16:54:16 MR brain without IV [id number] 16:54:00Interface, External Ris In - 02/11/2021 4:56 PM CDTFINAL REPORT MR, BRAIN, WITHOUT CONTRAST, MR, MRA, BRAIN, WITHOUT CONTRAST, MR, MRA, NECK, WITHOUT IV CONTRAST INDICATION: Stroke, follow upIschemic Stroke Evaluation TECHNIQUE: Multiplanar, multisequence MR imaging of the brain without intravenous contrast.MRA of the head utilizing 3-D eldb-pj-exumry technique, with 3-D reconstructions.MRA of the neck utilizing 2-D and 3-D cyoa-wg-lqmcdu technique, with 3-D reconstructions. COMPARISON: MRI and [...] Signed: Lakshmi Amadorort Verified Date/Time: 02/11/2021 16:54:16 [facility] [id number] 16:54:00Interface, External Ris In - 02/11/2021 4:56 PM CDTFINAL REPORT MR, BRAIN, WITHOUT CONTRAST, MR, MRA, BRAIN, WITHOUT CONTRAST, MR, MRA, NECK, WITHOUT IV CONTRAST INDICATION: Stroke, follow upIschemic Stroke Evaluation TECHNIQUE: Multiplanar, multisequence MR imaging of the brain without intravenous contrast.MRA of the head utilizing 3-D qlzg-oc-ixqxsi technique, with 3-D reconstructions.MRA of the neck utilizing 2-D and 3-D knmu-ia-utvbkk technique, with 3-D reconstructions. COMPARISON: MRI and [...] Signed: Lakshmi Amador Verified Date/Time: 02/11/2021 16:54:16 [facility] without IV [id number] 16:54:00Interface, External Ris In - 02/11/2021 4:56 PM CDTFINAL REPORT MR, BRAIN, WITHOUT CONTRAST, MR, MRA, BRAIN, WITHOUT CONTRAST, MR, MRA, NECK, WITHOUT IV CONTRAST INDICATION: Stroke, follow upIschemic Stroke Evaluation TECHNIQUE: Multiplanar, multisequence MR imaging of the brain without intravenous contrast.MRA of the head utilizing 3-D cjpj-sy-yqjuwi technique, with 3-D reconstructions.MRA of the neck utilizing 2-D and 3-D clgn-ye-bgqbrc technique, with 3-D reconstructions. COMPARISON: MRI and [...] No proximal branch arterial occlusion or high-grade focalstenosis within the head and neck. Signed: [facility] Verified Date/Time: 02/11/2021 16:54:16 [facility] 14:02:00 Test Item Value Reference Range Interpretation Comments RPR (test code = 73171-2) Nonreactive Nonreactive Lab Interpretation (test code = Normal 21922-9) [facility]RPR[facility] 14:02:00 Test Item Value Reference Range Interpretation Comments RPR SCREEN (BEAKER) (test code = Nonreactive Nonreactive 420) Hemoglobin [id number] 09:35:00 Test Item Value Reference Range Interpretation Comments Hemoglobin A1C (test code = 4548-4) 6.0 % 4.3-6.1 Lab Interpretation (test code = Normal 74808-9) [facility] CenterHEMOGLOBIN [id number] 09:35:00 Test Item Value Reference Range Interpretation Comments HEMOGLOBIN A1C (BEAKER) (test code = 6.0 % 4.3-6.1 368) Rapid drug screen, [id number] 07:26:00 Test Item Value Reference Range Interpretation Comments Barbiturate Screen Negative Negative (test code = 85979-2) Benzodiazepine Screen Negative Negative (test code = 28122-5) Cocaine (Metab.) Negative Negative Screen (test code = 3397-7) Methadone Screen (test Negative Negative code = 36462-0) Opiate Screen (test Negative Negative code = 49774-4) Cannabinoid Screen Negative Negative (test code = 48970-9) Amph/Methamph Screen Negative Negative (test code = 93984-2) Phencyclidine Screen Negative Negative (test code = 50365-6) pH, UA (test code = 6.5 5.0-8.0 5803-2) SOMMER (test code = SOMMER) DRUG CUTOFF CONC.Cocaine 300 ng/mL Cannabinoid 50 ng/mLBenzodiazepine 200 ng/mLBarbiturate 200 ng/mLPhencyclidine 25 ng/mLOpiate 300 ng/mLMethadone 300 ng/mLAmphetamine/ 1000 ng/mL Methamphetamine This assay provides an unconfirmed qualitative test result for the clinical management of patients in emergency situations. Chain of custody not maintained. Some lsln-suy-ggwysfq medications, as well as adulterants, may cause inaccurate results. Clinical correlation should be applied. A more comprehensive drug screen or confirmation of a detected drug may be performed upon request.Ping Pong Table Assembler ID - VIET M Lab Interpretation Normal (test code = 28979-4) [facility] CenterRAPID DRUG SCREEN, [id number] 07:26:00 Test Item Value Reference Range Interpretation [...] situations. Chain of custody not maintained. Some gjub-ris-nxpzzqk medications, as well as adulterants, may cause inaccurate results. Clinical correlation should be applied. A more comprehensive drug screen or confirmation of a detected drug may be performed upon request.Ping Pong Table Assembler ID - VIET MUrinalysis with Microscopic If [id number] 07:11:00 Test Item Value Reference Range Interpretation Comments Color, UA (test code = Light Yellow 5778-6) Clarity, UA (test code = Clear 5767-9) Specific [place], UA (test 1.012 1.001-1.035 code = 5811-5) pH, UA (test code = 6.5 5.0-8.0 5803-2) Protein, UA (test code = Negative Negative 61523-6) Glucose, UA (test code = Negative Negative 365) Ketones, UA (test code = Negative Negative 2514-8) Bilirubin, UA (test code = Negative Negative 17501-9) Blood, UA (test code = Small Negative A 48199-9) Nitrite, UA (test code = Negative Negative 5802-4) Leukocytes, UA (test code Small Negative A = 5799-2) Urobilinogen, UA (test 0.2 mg/dL 0.2-1 code = 76226-8) Specimen Source (test code = 2795) SOMMER (test code = SOMMER) Ping Pong Table Assembler ID - [auto]Ping Pong Table Assembler ID - tech Lab Interpretation (test Abnormal code = 16199-1) [facility] CenterUrinalysis Microscopic [id number] 07:11:00 Test Item Value Reference Range Interpretation Comments RBC, UA (test 11 See_Comment [Automated me ssage] code = 08859-9) The system w [facility] generated this result transmitted ref erence range: /HPF. Th e reference range was not used to int erpret this result as normal/abnormal . WBC, UA (test 11 See_Comment [Automated me ssage] code = 5821-4) The system [facility] generated this result transmitted ref erence range: /HPF. Th e reference range was not used to int erpret this result as normal/abnormal . Mucus (test Rare code = 8247-9) Squam Epithel, 3 See_Comment [Automated m essage] UA (test code = The system w [facility] 18820-1) generated this result transmitted ref erence range: /HPF. Th e reference range was not used to int erpret this result as normal/abnormal . SOMMER (test code Ping Pong Table Assembler ID - tech = SOMMER) [facility] CenterURINALYSIS WITH MICROSCOPIC IF [id number] 07:11:00 Test Item Value Reference Range Interpretation [...] = 463) SOURCE(BEAKER) (test code = 2795) Ping Pong Table Assembler ID - [auto]Ping Pong Table Assembler ID - techURINALYSIS [id number] 07:11:00 Test Item Value Reference Range Interpretation Comments RBC UA (BEAKER) (test code = 519) 11 /HPF WBC UA (BEAKER) (test code = 520) 11 /HPF MUCUS (BEAKER) (test code = 1574) Rare SQUAMOUS EPITHELIAL (BEAKER) (test 3 /HPF code = 516) Ping Pong Table Assembler ID - techDigoxin egwgu3117-07-19 06:22:00 Test Item Value Reference Range Interpretation Comments Digoxin Lvl (test code = <0.30 0.8-2 L 22658-6) SOMMER (test code = SOMMER) Ping Pong Table Assembler ID - MACHELLE L Lab Interpretation (test Abnormal code = 80173-4) [facility] CenterDIGOXIN [id number] 06:22:00 Test Item Value Reference Range Interpretation Comments DIGOXIN LEVEL (BEAKER) (test code = < ng/mL 0.80-2.00 L 669) Ping Pong Table Assembler ID Jodie CARTY SLqnbnpgvqhri9698-79-16 05:58:00 Test Item Value Reference Range Interpretation Comments Homocysteine (test code = 7.3 umol/L 5.1-15.4 55375-3) SOMMER (test code = SOMMER) Ping Pong Table Assembler ID - MACHELLE L Lab Interpretation (test Normal code = 62392-1) [facility] CenterTSH/Free T4 If [id number] 05:58:00 Test Item Value Reference Range Interpretation Comments TSH (test code = 4.368 See_Comment [Automated 35202-5) message] The system which generated this result transmit aida reference range : 0.350 - 4.940 uIU/mL. The reference range was not used to interpret this result as normal/abnormal . SOMMER (test code = SOMMER) Ping Pong Table Assembler ID - MACHELLE L Lab Interpretation Normal (test code = 36503-3) [facility] CenterVitamin B12 and [id number] 05:58:00 Test Item Value Reference Range Interpretation Comments Vitamin B12 (test 557 pg/mL 213-816 code = 2132-9) Folate (test code = 11.20 ng/mL See_Comment [Automa aida 2284-8) message] The system which generated this result transmit aida reference range : >=7.00. The reference range was not used to interpret this result as normal/abnormal . SOMMER (test code = SOMMER) Ping Pong Table Assembler ID - SHAMIKADEANN L Lab Interpretation Normal (test code = 54714-0) [facility] CenterQkuezsUEUSSWZHJSLU0960-07-61 05:58:00 Test Item Value Reference Range Interpretation Comments HOMOCYSTEINE (BEAKER) (test code = 7.3 umol/L 5.1-15.4 642) Ping Pong Table Assembler ID - MACHELLE LTSH/FREE T4 IF [id number] 05:58:00 Test Item Value Reference Range Interpretation Comments THYROID STIMULATING HORMONE 4.368 uIU/mL 0.350-4.940 (BEAKER) (test code = 772) Ping Pong Table Assembler ID - MACHELLE LVITAMIN B12 AND [id number] 05:58:00 Test Item Value Reference Range Interpretation Comments VITAMIN B12 557 pg/mL 213-816 (BEAKER) (test code = 774) FOLATE (BEAKER) 11.20 ng/mL See_Comment [Automated message] (test code = 362) The system which generated this result transmitted ref erence range: >=7.00. The reference range was not used to interpr et this result as normal/abnormal . Ping Pong Table Assembler ID - MACHELLE LC-Reactive [id number] 04:54:00 Test Item Value Reference Range Interpretation Comments CRP (test code = 676) 0.81 mg/dL 0-0.5 H SOMMER (test code = SOMMER) Ping Pong Table Assembler ID - MACHELLE L Lab Interpretation (test Abnormal code = 25033-7) [facility] CenterMAGNESIUM2021-05-20 04:54:00 Test Item Value Reference Range Interpretation Comments MAGNESIUM (BEAKER) 2.1 mg/dL 1.6-2.6 Specimen slightly (test code = 627) hemolyzed Ping Pong Table Assembler ID - MACHELLE [id number] 04:54:00 Test Item Value Reference Range Interpretation Comments PHOSPHORUS (BEAKER) 4.3 mg/dL 2.3-4.7 Specimen slightly (test code = 604) hemolyzed Ping Pong Table Assembler ID - MACHELLE LBASIC METABOLIC [id number] 04:54:00 Test Item Value Reference Range Interpretation [...] S NOT APPLICABLE FOR DIALYSIS PATIEN TS. Ping Pong Table Assembler ID - MACHELLE LC-REACTIVE [id number] 04:54:00 Test Item Value Reference Range Interpretation Comments C-REACTIVE PROTEIN (BEAKER) (test 0.81 mg/dL 0.00-0.50 H code = 676) Ping Pong Table Assembler ID - MACHELLE LCBC W/PLT COUNT & AUTO [id number] 02:54:00 Test Item Value Reference Range Interpretation [...] = 2801) RAD, CHEST, 1 VIEW, NON [id number] 22:40:00Reason for exam:->strokeShould this be performed at the bedside?->Yes [facility] : 1980 Sex: FFINAL REPORT RAD, CHEST, 1 VIEW, NON DEPT TECHNIQUE: Frontal view(s) of the chest. INDICATION: stroke. COMPARISON: 08/20/2018 chest radiograph FINDINGS/IMPRESSION: Lines/Tubes: Unchanged 2-lead pacemaker Lungs/pleura: No focal consolidation or definite interstitial pulmonary edema.No pleural effusion. No pneumothorax. Heart and Mediastinum: Unremarkable. Soft Tissues and Bones: Unremarkable. Signed: Wilmer Kaur Verified Date/Time: 02/10/2021 22:40:02 Reading Location: [address] Reading Room XR chest 1 view portable / [id number] 22:40:00Interface, External Ris In - 02/10/2021 10:42 PM CDTFINAL REPORT RAD, CHEST, 1 VIEW, NON DEPT TECHNIQUE: Frontal view(s) of the chest. INDICATION: stroke. COMPARISON: 08/20/2018 chest radiograph FINDINGS/IMPRESSION: Lines/Tubes: Unchanged 2-lead pacemaker Lungs/pleura: No focal consolidation or definite interstitial pulmonary edema. No pleural effusion. No pneumothorax. Heart andMediastinum: Unremarkable. Soft Tissues and Bones: Unremarkable. Signed: Wilmer Kaur Verified Date/Time: 02/10/2021 22:40:02 Reading Location: [address] Transitional Reading Room [facility] W/PLT COUNT & AUTO [id number] 22:16:00 Test Item Value Reference Range Interpretation [...] Range Interpretation Comments BNP (test code = 94307-4) <10 0-100 SOMMER (test code = SOMMER) Ping Pong Table Assembler ID - BS Lab Interpretation (test Normal code = 83454-9) [facility] CenterB-TYPE NATRIURETIC FACTOR (BNP)2021-02-10 22:04:00 Test Item Value Reference Range Interpretation Comments B-TYPE NATRIURETIC PEPTIDE (BEAKER) < pg/mL 0-100 (test code = 700) Ping Pong Table Assembler ID - BSHigh Sensitivity Troponin I ([facility]/[place]aley Only)2021-02-10 21:57:00 Test Item Value Reference Range Interpretation Comments Troponin I HS (test <4 See_Comment [Automa aida code = 16826-2) message] The system which generated this result transmitted reference range : <=17 pg/ml. The reference range was not used to interpret this result as normal/abnormal . SOMMER (test code = Ping Pong Table Assembler ID - SOMMER) BSThe HYDRAULIC PRESS IN OPERATOR STAT High Sensitivity Troponin-I results should be used in conjunction with other diagnostic information such as ECG, clinical observations and information, and patient symptoms to aid in the diagnosis of MS. Lab Interpretation Normal (test code = 68196-0) [facility] CenterHIGH SENSITIVITY TROPONIN [id number] 21:57:00 Test Item Value Reference Range Interpretation Comments HIGH SENSITIVITY < pg/ml See_Comment [Automated message] TROPONIN I (test code = The system which [id number]) generated this result transmitted ref erence range: <=17. Th e reference range was not used to interpr et this result as normal/abnormal . Ping Pong Table Assembler ID - BSThe HYDRAULIC PRESS IN OPERATOR STAT High Sensitivity Troponin-I results should be used in conjunctionwith other diagnostic information such as ECG, clinical observations and information, and patient symptoms to aid in the diagnosis of MS.Lipid [id number] 21:54:00 Test Item Value Reference Range Interpretation Comments Triglycerides (test 171 mg/dL Specimen code = 2571-8) markedly hemolyzed Cholesterol (test 218 mg/dL Specimen code = 2093-3) markedly hemolyzed HDL (test code = 47 mg/dL 2084-9) LDL Calculated (test 137 mg/dL code = 43471-6) SOMMER (test code = Triglyceride SOMMER) Reference Range: Low Risk <150 Borderline 150-199 High Risk 200-499 Very High Risk >=500 Cholesterol Reference Range: Low Risk <200 Borderline 200-239 High Risk >240 HDL Cholesterol Reference Range: Low Risk >=60 High Risk <40 LDL Cholesterol Reference Range: Optimal <100 Near Optimal 100-129 Borderline 130-159 High 160-189 Very High >=190 Ping Pong Table Assembler ID - BS [facility] CenterLIPID [id number] 21:54:00 Test Item Value Reference Range Interpretation [...] Borderline 130-159 High 160-189 Very High >=190 Ping Pong Table Assembler ID - BSComprehensive metabolic [id number] 21:52:00 Test Item Value Reference Range Interpretation Comments Protein, Total 8.0 See_Comment Specimen sldhaval agee (test code = hemolyzed 5-2) [Automated message] The system which generated this result transmit aida reference range : 6.0 - 8.3 gm/dL . The reference range was not u sed to interpret th is result as normal/abnormal . Albumin (test code 4.2 g/dL 3.5-5 Specimen slightly = 82764-7) hemolyzed Alkaline 135 U/L 40-150 Phosphatase (test code = 6768-6) Total Bilirubin 0.2 mg/dL 0.2-1.2 Specimen sli ghtly (test code = hemolyzed 1974-2) Sodium (test code = 139 meq/L 439-248 7035-2) Potassium (test 4.5 meq/L 3.5-5.1 Specimen sli ghtly code = 2823-3) hemolyzed Chloride (test code 103 meq/L 98-107 = 2075-0) CO2 (test code = 25 meq/L 22-29 2027-9) BUN (test code = 9 mg/dL 7-21 3094-0) Creatinine (test 0.78 mg/dL 0.57-1.25 Specimen sl ightly code = 2160-0) hemolyzed Glucose (test code 105 mg/dL 70-105 = 2345-7) Calcium (test code 9.6 mg/dL 8.4-10.2 = 59084-4) AST (test code = 28 U/L 5-34 Specimen sl ightly 1920-8) hemolyzed ALT (test code = 52 U/L 6-55 Specimen sl ightly 1742-6) hemolyzed EGFR (test code = 82 mL/min/1.73 [place] [address]-9) NOT ACCURATE CREATININE CLEARANCE IN PREDICTING GLOMERULAR FILTRATION RATE . ESTIMATED GFR I S NOT APPLICABLE FOR DIALYSIS PATIEN TS. SOMMER (test code = Ping Pong Table Assembler ID - BS SOMMER) [facility] CenterCreatine Kinase (CK)2021-02-10 21:52:00 Test Item Value Reference Range Interpretation Comments Total CK (test code = 70 U/L 29-200 2157-6) SOMMER (test code = SOMMER) Ping Pong Table Assembler ID - BS Lab Interpretation (test Normal code = 83439-5) [facility] Ce[id number] 21:52:00 Test Item Value Reference Range Interpretation Comments MAGNESIUM (BEAKER) 2.2 mg/dL 1.6-2.6 Specimen slightly (test code = 627) hemolyzed Ping Pong Table Assembler ID - [id number] 21:52:00 Test Item Value Reference Range Interpretation Comments PHOSPHORUS (BEAKER) 4.4 mg/dL 2.3-4.7 Specimen slightly (test code = 604) hemolyzed Ping Pong Table Assembler ID - BSCOMPREHENSIVE METABOLIC [id number] 21:52:00 Test Item Value Reference Range Interpretation [...] S NOT APPLICABLE FOR DIALYSIS PATIEN TS. Ping Pong Table Assembler ID - BSCREATINE KINASE (CK)2021-02-10 21:52:00 Test Item Value Reference Range Interpretation Comments CREATINE KINASE TOTAL (BEAKER) (test 70 U/L 29-200 code = 380) Ping Pong Table Assembler ID - [id number] 21:46:00 Test Item Value Reference Range Interpretation Comments PTT (test code = 68093-5) 30.5 See_Comment [ Automated message] The system [employer] generated this result transmitted ref erence range: 22.5 - 3 6.0 seconds. The re ference range was not u sed to interpret this result as normal/abnor mal. Lab Interpretation (test Normal code = 27864-8) [facility] CenterLactic acid, [id number] 21:46:00 Test Item Value Reference Range Interpretation Comments Lactate, Venous (test 1.96 mmol/L 0.5-2.2 Specim en code = 2872) markedly hemolyzed SOMMER (test code = SOMMER) Ping Pong Table Assembler ID - BS Lab Interpretation Normal (test code = 88103-4) [facility] CenterAPTT2021-05-19 21:46:00 Test Item Value Reference Range Interpretation Comments PARTIAL THROMBOPLASTIN TIME 30.5 seconds 22.5-36.0 (BEAKER) (test code = 760) LACTIC ACID, [id number] 21:46:00 Test Item Value Reference Range Interpretation Comments LACTATE BLOOD VENOUS 1.96 mmol/L 0.50-2.20 Specime n markedly (2) (AKER) (test hemolyzed code = 2872) Ping Pong Table Assembler ID - BSProthrombin time/[id number] 21:45:00 Test Item Value Reference Interpretation Comments Range Protime (test code = 12.7 See_Comment [Autom ated 5902-2) message] The system which generated this result transmitted reference range : 11.9 - 14.2 seconds. The reference range was not used to interpret this result as normal/abnormal . INR (test code = 0.98 See_Comment [Automated 9181-6) message] The system which generated this result [...] valves. Lab Interpretation Normal (test code = 21916-2) [facility] CenterPROTHROMBIN TIME/[id number] 21:45:00 Test Item Value Reference Range Interpretation Comments PROTIME (BEAKER) 12.7 seconds 11.9-14.2 (test code = 759) INR (BEAKER) (test 0.98 See_Comment [Automat ed message] code = 370) The system [employer] generated this result transmitted ref erence range: <=5.90. The reference range was not used to int erpret this result as normal/abnormal . RECOMMENDED COUMADIN/WARFARIN INR THERAPY RANGESSTANDARD DOSE: 2.0 - 3.0 Includes: PROPHYLAXIS for venous thrombosis, systemic embolization; TREATMENT for venous thrombosis and/or pulmonary embolus.HIGH RISK: Target INR is 2.5-3.5 for patients with mechanical heart valves.POC-Glucose [id number] 21:39:00 Test Item Value Reference Range Interpretation Comments POC-Glucose Meter (test 93 mg/dL 70-110 : TE STED AT [facility] code = 1538) [address] [place], [address]: Ping Pong Table Assembler/Techni rhonda ID = [id number] for AILYN JAVIER A Lab Interpretation (test Normal code = 38293-3) [facility] CenterPOCT-GLUCOSE [id number] 21:39:00 Test Item Value Reference Range Interpretation Comments POC-GLUCOSE METER 93 mg/dL 70-110 : TESTED A T [facility] 6720 (BEAKER) (test code = AYLIN Rivera [facility], 1538) [address]: Ping Pong Table Assembler/Techni rhonda ID = [id number] for VALENCIA SAILYNA [id number] 15:45:00 Test Item Value Reference Range Interpretation Comments SURG (test code = SURG) RUN DATE: 09/30/20 [facility] - LAB PAGE 1 RUN TIME: 3068 Specimen Inquiry RUN USER: INTERFACE PATIENT: ADAM RIVERA LOC: GA U #: [id number] AGE/SX: 40/F ROOM: RE09/29/20REG DR: Linus Boone MD : 82 BED: DIS: STATUS: [facility] TLOC: SPEC #: [id number] RECD: 09/29/20 STATUS: MACIEL REQ #: [id number] WU: 09/29/[address]: Linus Boone MD ENTERED: 09/29/20 SP TYPE: SURG OTHR DR: Undefined Provider ORDERED: SURG PATH LVL 4 COPIES TO: Linus Boone MD [address] [place] [id number] Undefined Provider HISTOLOGY: TISSUE ID BLK PCS DHIRAJ LEV PROCEDURE DISPOSITION ____ ___ ___ ___ STOMACH, NOS A 1 2 PROCEDURES: SURG PATH LVL 4 (09/29/20-1244) TISSUES: A. STOMACH, NOS - GASTRIC BIOPSY CLINICAL HISTORY R10.13, K21.9, K92.0, R14.0, R11.2, R19.7, R19.4 CPT CODES CPT CODE(S): 72197 , , , , , , FINAL DIAGNOSIS Stomach, biopsy: MILD CHRONIC GASTRITIS NEGATIVE FOR INTESTINAL METAPLASIA, DYSPLASIA, OR MALIGNANCY NEGATIVE FOR HELICOBACTER PYLORI ORGANISMS GROSS DESCRIPTION Gastric biopsy. Received in formalin are two wilkinson tissue fragments, 0.4 cm each, all as A. bk/nr Grossing performed at [facility] Pathology, [address] [place] [address], [address], [place] [address]. Systems Support Officer: Aditya Hanson M.D. CONTINUED ON NEXT PAGE RUN DATE: 09/30/20 [facility] PAGE 2 RUN TIME: 1545 Specimen Inquiry RUN USER: INTERFACE SPEC #: [facility]:[id number] PATIENT: SALMAADAM BABCOCK #[id number] (Continued) MICROSCOPIC DESCRIPTION Gastric biopsy. Sections demonstrate gastric mucosa with mild chronic inflammation. No dysplasia or malignancy is identified. No evidence of Helicobacter pylori organisms or intestinal metaplasia is seen. Signed SIGNATURE ON FILE Hector Issa Solitario 09/30/20 1545 END OF REPORT COVID 19 INHOUSE [id number] 13:41:00 Test Item Value Reference Range Interpretation Comments COVID 19 INHOUSE AG NEGATIVE Negative Per manu facturer, (test code = negative result s should [id number]) be treated aspr esumptive and, if inconsi [...] symptoms co nsistent with COVID-19. BASIC METABOLIC [id number] 13:40:00 Test Item Value Reference Range Interpretation [...] MG/DL 8.5-10.1 N - XR CHEST 1 [id number] 13:33:00 [facility] 1980 Sex: F Name: ADAM RIEVRA [facility] : 1980 Age/S: 40 / F [id number] Unit #: [id number] Loc: [place] [address] Phys: Linus Boone MD Acct: [id number] Dis Date: Status: PRE [facility] PHONE #: [phone] Exam Date: 09/28/2020 1326 FAX #: Reason: PREOP EXAMS: CPT: [id number] XR CHEST 1 V 39895 Fluoro Time: DAP (Gy m2): Air Kerma [...] MD PAGE 1 Signed Report Name: ADAM RIVERAland : 1980 Age/S: 40 / F [address] Unit #: [id number] Loc: [place] [address] Phys: Linus Boone MD Acct: [id number] Dis Date: Status: PRE SDC PHONE #: [phone] Exam Date: 09/28/2020 1326 FAX #: Reason: PREOP EXAMS: CPT: [id number] XR CHEST 1 V 51584 Fluoro Time:DAP (Gy m2): Air Kerma (mGy): (Continued) Technologist: Shari Davila RT(R)(CT) Trnscb Date/Time: 09/28/2020 (7243) 16 Orig Print D/T: S: 09/28/2020 (1696) PAGE 2 Signed Report PROTHROMBIN [id number] 13:29:00 Test Item Value Reference Range Interpretation Comments PT PATIENT (test code = PTP) 10.6 SECONDS 9.3-12.9 N INTERNATIONAL NORMAL RATIO 0.95 INR Unit 0.8-1.2 N (test code = INR) THROMBOPLASTIN TIME [id number] 13:29:00 Test Item Value Reference Range Interpretation Comments THROMBOPLASTIN TIME PARTIAL 28.0 SECONDS 26-35 N (test code = PTT) CBC W/AUTO [id number] 13:26:00 Test Item Value Reference Range Interpretation [...] code NO DIFF/SCN CRITERIA = MDIFF) POCT-GLUCOSE [id number] 10:22:00 Test Item Value Reference Range Interpretation Comments POC-GLUCOSE METER 102 mg/dL 70-[address] [facility] 67[address] (ARNOL) (test code = [place] 1538) [address] MR, MRA, BRAIN, WITHOUT [id number] 09:32:00Reason for exam:->Ischemic Stroke EvaluationFINAL REPORT MRA Head CLINICAL HISTORY: Ischemic Stroke TECHNIQUE: MRA of the head utilizing 3-D yxem-lj-hjzyrl technique, with 3-D reconstructions. COMPARISON: None FINDINGS: There is no evidence of intracranial aneurysm, focal stenosis, or major branch vessel occlusion. IMPRESSION: No evidence for a major anvik of [place]es proximal branch vessel occlusion. MRA Neck CLINICAL HISTORY: Ischemic Stroke TECHNIQUE: MRA of the neck utilizing 2-D and 3-D qiiq-yq-ioqgxm technique, with 3-D reconstructions. COMPARISON: None FINDINGS: The carotid arteries in the neck are patent includingtheir bifurcations. There is antegrade flow in the vertebral arteries in the neck. IMPRESSION: No evidence of hemodynamically significant stenosis in the cervical carotid or vertebral arteries by NASCET criteria. Signed: Santos Neff MDReport Verified Date/Time: 08/21/2018 09:32:09 Reading Location: [address] Neuro Reading Room MR, MRA, NECK, WITHOUT IV [id number] 09:32:00Reason for exam:->Ischemic Stroke EvaluationFINAL REPORT MRA Head CLINICAL HISTORY: Ischemic Stroke TECHNIQUE: MRA of the head utilizing 3-D bglh-vj-fmbusn technique, with 3-D reconstructions. COMPARISON: None FINDINGS: There is no evidence of intracranial aneurysm, focal stenosis, or major branch vessel occlusion. IMPRESSION: No evidence for a major anvik of [place] proximal branch vessel occlusion. MRA Neck CLINICAL HISTORY: Ischemic Stroke TECHNIQUE: MRA of the neck utilizing 2-D and 3-D dwmm-gv-hxppxu technique, with 3-D reconstructions. COMPARISON: None FINDINGS: The carotid arteries in the neck are patent includingtheir bifurcations. There is antegrade flow in the vertebral arteries in the neck. IMPRESSION: No evidence of hemodynamically significant stenosis in the cervical carotid or vertebral arteries by NASCET criteria. Signed: Santos Neff Verified Date/Time: 08/21/2018 09:32:09 Reading Location: [address] Neuro Reading Room MR, BRAIN, WITHOUT [id number] 09:25:00Reason for exam:->Ischemic Stroke EvaluationFINAL REPORT MRI [...] Neff Verified Date/Time: 08/21/2018 09:25:25 Reading Location: [address] Neuro Reading Room POCT-GLUCOSE [id number] 21:26:00 Test Item Value Reference Range Interpretation Comments POC-GLUCOSE METER 119 mg/dL 70-110 H TESTED AT [place] [address] ([facility]) (test code = KIRKNICOLAS Rivera [facility] 1538) [address] POCT-GLUCOSE [id number] 18:03:00 Test Item Value Reference Range Interpretation Comments POC-GLUCOSE METER 119 mg/dL 70-110 H TESTED AT [place] [address] ([facility]) (test code = AYLIN [facility] 1538) [address] POCT-GLUCOSE [id number] 12:39:00 Test Item Value Reference Range Interpretation Comments POC-GLUCOSE METER 120 mg/dL 70-110 H TESTED AT [place] [address] ([facility]) (test code = AYLIN Rivera [facility] 1538) [address] RAD, CHEST, 1 VIEW, NON [id number] 12:04:00Reason for exam:->To Locate Heart Device (Pacemaker)Should [...] MDReport Verified Date/Time: 08/20/2018 12:04:06 Reading Location: [facility] Radiology Reading Room -GLUCOSE [id number] 09:17:00 Test Item Value Reference Range Interpretation Comments POC-GLUCOSE METER 121 mg/dL 70-[address] [facility] 67[address] (BEAKER) (test code = AYLIN Rivera [facility] 1538) [address] BASIC METABOLIC [id number] 06:56:00 Test Item Value Reference Range Interpretation [...] NOT APPLICABLE FOR DIALYSIS PATIEN TS. POCT-GLUCOSE [id number] 21:09:00 Test Item Value Reference Range Interpretation Comments POC-GLUCOSE METER 109 mg/dL 70-[address] [facility] [address] (BEAKER) (test code = [facility] 1538) [address] POCT-GLUCOSE [id number] 17:15:00 Test Item Value Reference Range Interpretation Comments POC-GLUCOSE METER 117 mg/dL 70-[address] [facility] 67 (BEAKER) (test code = [facility] 1538) [address] VITAMIN B12 AND [id number] 06:39:00 Test Item Value Reference Range Interpretation Comments VITAMIN B12 (BEAKER) (test code = 524 pg/mL 213-816 774) FOLATE (BEAKER) (test code = 362) 13.5 ng/mL >=7.0 BASIC METABOLIC [id number] 05:48:00 Test Item Value Reference Range Interpretation [...] S NOT APPLICABLE FOR DIALYSIS PATIEN TS. [id number] 15:42:00 Test Item Value Reference Range Interpretation Comments RPR SCREEN (BEAKER) (test code = Nonreactive Nonreactive 420) HEMOGLOBIN [id number] 09:14:00 Test Item Value Reference Range Interpretation Comments HEMOGLOBIN A1C (BEAKER) (test code = 5.3 % 4.3-6.1 368) TSH/FREE T4 IF [id number] 04:49:00 Test Item Value Reference Range Interpretation Comments THYROID STIMULATING HORMONE 3.18 uIU/mL 0.35-4.94 (BEAKER) (test code = 772) BASIC METABOLIC [id number] 04:38:00 Test Item Value Reference Range Interpretation [...] NOT APPLICABLE FOR DIALYSIS PATIEN TS. LIPID [id number] 04:38:00 Test Item Value Reference Range Interpretation [...] 130-159 High 160-189 Very High >=190HEPATIC FUNCTION [id number] 04:38:00 Test Item Value Reference Range Interpretation [...] (test code = 413) AFB Culture and [id number] 13:24:00Specimen/Source: Wound/PACEMAKERCollected: 09/05/2017 19:45 Status: Final Last Updated: 11/01/2017 13:24 FDA-Begcu-Yxgfgioitqcu (Final) (Final) 09/07/17 No acid fast bacill seen on direct smear CultureResult (Final) (Final) 11/01/17 No growth of AFB at six (6) weeksFungus Culture with [id number] 12:12:00Specimen/Source: Wound/PACEMAKERCollected: 09/05/2017 19:45 Status: Final Last Updated: 10/22/2017 12:12 Fungal Smear Result (Final) (Final) 09/06/17 No yeast or hyphae seen Culture Result (Final) (Final) 10/22/17 No fungus isolated at 6 weeks Culture, Blood [id number] 08:23:00Specimen: BloodCollected: 09/04/2017 20:30 Status: Final Last Updated: 09/10/2017 08:23 Culture Result (Final) (Final) No Growth After 5 DaysCulture, Blood [id number] 08:23:00Specimen: BloodCollected: 09/04/2017 20:15 Status: Final Last [...] <=8/4 Susceptible Cefazolin (CFZ) <=4 Susceptible Ceftriaxone (MATERIAL ASSEMBLER) <=4 Susceptible Chloramphenicol (C) <=8 Susceptible Ciprofloxacin [...] National Kidney Foundation,http ://nkd ep.nih.gov CBC with [id number] 07:39:00 Test Item Value Reference Range Interpretation [...] code = ALYMPH) 1.7 K/cumm 0.5-4.6 N [place] Abs (test code = AMONO) 0.3 K/cumm 0.0-1.2 N Eos Abs (test code = AEOS) 0.29 K/cumm 0.00-0.74 N Baso Abs (test code = ABASO) 0.0 K/cumm 0.00-0.21 N Vancomycin, [id number] 12:33:00 Test Item Value Reference Range Interpretation Comments Vanco, Trou (test code = VANTR) 7.9 ug/mL 10.0-20.0 L Magnesium, [id number] 06:37:00 Test Item Value Reference Range Interpretation Comments Magnesium (test code = MG) 2.4 mg/dL 1.7-2.5 N Renal [id number] 06:29:00 Test Item Value Reference Range Interpretation [...] National Kidney Foundation,http ://nkd ep.nih.gov BHCG, Serum, [id number] 06:26:00 Test Item Value Reference Range Interpretation Comments Preg Qual [Se] (test code = BSHCG) Negative Negative N CBC with [id number] 06:24:00 Test Item Value Reference Range Interpretation [...] code = ALYMPH) 1.6 K/cumm 0.5-4.6 N [place] Abs (test code = AMONO) 0.4 K/cumm 0.0-1.2 N Eos Abs (test code = AEOS) 0.18 K/cumm 0.00-0.74 N Baso Abs (test code = ABASO) 0.0 K/cumm 0.00-0.21 N XR CHEST 1 [id number] 16:29:55XR CHEST 1 VIEWLOCATION: [id number]: None.INDICATION: REVIEW PICC LINE PLACEMENTDISCUSSION:AP chest and [...] = TSH) 3.44 mIU/mL 0.270-4.200 N Lipid [id number] 05:47:00 Test Item Value Reference Range Interpretation Comments Cholesterol (test 160 mg/dL 0-200 N code = CHOL) Triglycerides (test 126 mg/dL 9-200 N code = TRIG) HDL (test code = 35 mg/dL 50-60 L HDL) Chol/HDL (test code 4.6 Ratio 0.0-4.4 H = CHOLPHDL) LDL, Calculated 100 0-130 N (NOTE)RISK O F HEART (test code = LDLC) DISEASEPu blished by Danish Heart AssociationAnal yte Optimal Boderli ne Increased RiskC HOL <200 200-239 >240TRI G <150 150-199 >200HDL Male: >60 <40HDL Fema le: >60 <50LDL <100 130 -159 >160LDL NEAR OP TIMAL IS 100-129 VLDL (test code = 25 mg/dL 5-40 N VLDL) LDL/HDL (test code = 3 LDLPHDL) Basic Metabolic [id number] 05:47:00 Test Item Value Reference Range Interpretation [...] the National Kidney Foundation,http ://nkd ep.nih.gov Magnesium, [id number] 05:47:00 Test Item Value Reference Range Interpretation Comments Magnesium (test code = MG) 2.3 mg/dL 1.7-2.5 N CBC with [id number] 05:36:00 Test Item Value Reference Range Interpretation [...] code = ALYMPH) 2.2 K/cumm 0.5-4.6 N [place] Abs (test code = AMONO) 0.3 K/cumm 0.0-1.2 N Eos Abs (test code = AEOS) 0.24 K/cumm 0.00-0.74 N Baso Abs (test code = ABASO) 0.0 K/cumm 0.00-0.21 N Partial Thromboplastin [id number] 21:26:00 Test Item Value Reference Range Interpretation Comments aPTT (test code = PTT) 29.00 seconds 24.39-37.25 N Prothrombin [id number] 21:26:00 Test Item Value Reference Range Interpretation Comments PT (test code = PT) 10.70 seconds 9.78-13.35 N INR (test code = INR) 0.95 Ratio 0.6-1.2 N Comprehensive Metabolic [id number] 21:23:00 Test Item Value Reference Range Interpretation [...] National Kidney Foundation,http ://nkd ep.nih.gov CBC with [id number] 21:16:00 Test Item Value Reference Range Interpretation [...] code = ALYMPH) 2.2 K/cumm 0.5-4.6 N [place] Abs (test code = AMONO) 0.4 K/cumm 0.0-1.2 N Eos Abs (test code = AEOS) 0.17 K/cumm 0.00-0.74 N Baso Abs (test code = ABASO) 0.1 K/cumm 0.00-0.21 N
[2022-07-22] MEDS ORDERED: ONDANSETRON 4 MG/2 ML VIAL ONE (21:14)
[2022-07-22] MEDS ORDERED: FENTANYL CITR 100 MCG/2 ML ONE (21:14)
[2022-07-22 21:24] LABS: Absolute Lymphocytes (CBC) 2.2 K/uL (0.7-4.9); Hematocrit 40.4 % (36.0-45.0); Lymphocytes % 31.8 % (15.3-44.8); MCV 85.6 fL (80-100); MPV 8.2 fL (7.6-11.3); RBC Red Blood Cell Count 4.71 M/uL (3.86-4.86)
[2022-07-22 21:45] LABS: BUN Blood Urea Nitrogen 11 mg/dL (7-18); Bicarbonate 26 mmol/L (21-32); Glomerular Filtration Rate 112 ml/min (=/>90); Glucose Level 121 mg/dL (74-106); Sodium Level 140 mmol/L (136-145)
[2022-07-22 21:47] LABS: Potassium 3.8 mmol/L (3.5-5.1); Troponin High Sensitivity < 3.0 pg/mL (<58.9)
--- NOTE | 2022-07-22 22:16 | RAD REPORT ---
EXAM DESCRIPTION: RAD - Chest Single View - 07/22/2022 10:00 pm CLINICAL HISTORY: CHEST PAIN COMPARISON: Chest Single View dated 05/28/2022; Chest Single View dated 04/13/2022; Chest Single View d ated 03/19/2022; Chest Single View dated 11/26/2021 FINDINGS: Lines: Pacemaker. Lungs: No evidence of edema or pneumonia. Pleural: No significant pleural effusions or pneumothorax. Cardiac: The heart size is within normal limits. Mediastinum: Within normal limits. Bones: No acute fractures. Other: None IMPRESSION: No acute cardiopulmonary disease.
[2022-07-22] MEDS ORDERED: HYDROMORPHONE HCL 0.5 MG/0.5 ML INJ ONE (22:25)
--- NOTE | 2022-07-22 22:52 | EDPHYS ---
Physician Documentation [facility] Name: Jenni Draper Age: 42 yrs Sex: Female : 1980 Arrival Date: 07/22/2022 Time: 20:21 Bed 15 Private MD: ED Physician Matheus Bridges HPI: 07/22 20:44 This 42 yrs old Female presents to ER via Ambulatory with complaints of Chest Pain > 30 jmm y/o, Shortness Of Breath, Headache. 20:44 The patient or guardian reports chest pain that is located primarily in the substernal jmm area. Onset: gradually, 1 day(s) ago. The pain does not radiate. Associated signs and symptoms: Pertinent negatives: abdominal pain, shortness of breath. The chest pain is described as aching. Duration: The patient or guardian reports a single episode, that is still ongoing. Modifying factors: The symptoms are alleviated by nothing. the symptoms are aggravated by nothing. SEWING TRIMMER: 20:44 LMP N/A - Hysterectomy kb3 Historical: - Allergies: 20:44 Adhesives; kb3 20:44 Aspirin; kb3 20:44 Bactrim; kb3 20:44 Benadryl; kb3 20:44 cefixime; kb3 20:44 Cipro IV; kb3 20:44 Clindamycin; kb3 20:44 coconut oil; kb3 20:44 Detrol; kb3 20:44 Diltiazem; kb3 20:44 Doxycycline; kb3 20:44 FISH PRODUCT DERIVATIVES; kb3 20:44 GABAPENTIN; kb3 20:44 Iodine; kb3 20:44 ivabradine; kb3 20:44 Latex, Natural Rubber; kb3 20:44 Morphine; kb3 20:44 PENICILLINS; kb3 20:44 Seroquel; kb3 20:44 Sulfa (Sulfonamide Antibiotics); kb3 20:44 tramadol; kb3 - PMHx: 20:44 Anxiety; Atrial fibrillation; Bipolar disorder; COPD; CVA; Seizure; kb3 - PSHx: 20:44 hysterectomy; pacemaker; kb3 - Immunization history:: Adult Immunizations up to date, Client reports receiving the 2nd dose of the Covid vaccine, Last tetanus immunization: up to date. - Social history:: Smoking status: Patient denies any tobacco usage or history of. ROS: 20:44 Constitutional: Negative for fever, chills, and weight loss. [facility] 20:44 Cardiovascular: Positive for chest pain. 20:44 All other systems are negative. Exam: 20:44 Constitutional: This is a well developed, well nourished patient who is awake, alert, jmm and in no acute distress. Head/Face: atraumatic. Eyes: EOMI, no conjunctival erythema appreciated ENT: Moist Mucus Membranes Neck: Trachea midline, Supple Chest/axilla: Normal chest wall appearance and motion. Cardiovascular: Regular rate and rhythm. No edema appreciated Respiratory: Normal respirations, no respiratory distress appreciated Abdomen/GI: Non distended Back: Normal ROM Skin: General appearance color normal MS/ Extremity: Moves all extremities, no obvious deformities appreciated, no edema noted to the lower extremities Neuro: Awake and alert Psych: Behavior is normal, Mood is normal, Patient is cooperative and pleasant 22:48 ECG was reviewed by the Attending Physician. [facility] Vital Signs: 20:43 BP 104 / 76; Pulse 85; Resp 20; Temp 98; Pulse Ox 100% ; Weight 56.7 kg; Height 4 ft. kb3 11 in. (149.86 cm); Pain 10/10; 21:30 Pain 7/10; ke1 21:32 BP 104 / 74; Pulse 94; Resp 22; Pulse Ox 97% on R/A; ke1 22:31 BP 103 / 72; Pulse 89; Resp 15; Temp 98.2; Pulse Ox 96% on R/A; ke1 22:45 Pain 2/10; ke1 20:43 Body Mass Index 25.25 (56.70 kg, 149.86 cm) kb3 MDM: 20:59 Patient medically screened. [facility] 22:50 Data reviewed: vital signs, nurses notes. Counseling: I had a detailed discussion with [facility] the patient and/or guardian regarding: the historical points, exam findings, and any diagnostic results supporting the discharge/admit diagnosis, lab results, radiology results, the need for outpatient follow up, to return to the emergency department if symptoms worsen or persist or if there are any questions or concerns that arise at home. Response to treatment: the patient's symptoms have markedly improved after treatment, and as a result, I will discharge patient. 22:50 ED course: Pain alleviated in the ER. Patient states feeling much better. Labs are [facility] unremarkable. Chest x-ray clear. I do not currently suspect PE, vital signs are normal. No leg swelling.. 07/22 20:55 Order name: Basic Metabolic Panel; Complete Time: 22:04 ke1 07/22 20:55 Order name: CBC with Diff; Complete Time: 21:38 ke1 07/22 20:55 Order name: Troponin HS; Complete Time: 22:04 ke1 07/22 20:55 Order name: XRAY Chest (1 view); Complete Time: 22:26 ke1 07/22 20:55 Order name: EKG; Complete Time: 20:56 ke1 07/22 20:55 Order name: Cardiac monitoring; Complete Time: 21:30 ke07/22 20:55 Order name: EKG - Nurse/Tech; Complete Time: 21:30 ke07/22 20:55 Order name: IV Saline Lock; Complete Time: 21:12 ke07/22 20:55 Order name: Labs collected and sent; Complete Time: 21:12 ke07/22 20:55 Order name: O2 Per Protocol; Complete Time: 21:30 ke07/22 20:55 Order name: O2 Sat Monitoring; Complete Time: 21:30 ke1 EC:48 Rate is 85 beats/min. Rhythm is regular. QRS [place] is Normal. DE interval is normal. QRS jmm interval is normal. QT interval is normal. No Q waves. T waves are Normal. No ST changes noted. Reviewed by me. Administered Medications: 21:15 Drug: fentaNYL (PF) 50 mcg Route: IVP; Site: left antecubital; ke1 21:30 Follow up: Pain 7/10 Adult ke1 21:15 Drug: Zofran (Ondansetron) 4 mg Route: IVP; Site: left antecubital; ke1 21:30 Follow up: Response: Nausea is decreased ke1 22:29 Drug: Dilaudid (HYDROmorphone) 0.5 mg Route: IVP; Site: left antecubital; ke1 22:45 Follow up: Pain 2/10 Adult ke1 Disposition Summary: 07/22/22 22:51 Discharge Ordered Location: Home [facility] Condition: Stable jm Diagnosis - Chest pain, unspecified jmm Followup: [facility] - With: Private Physician - When: 2 - 3 days - Reason: Recheck today's complaints, Continuance of care, Re-evaluation by your physician Discharge Instructions: - Discharge Summary Sheet josh - Nonspecific Chest Pain, Adult josh Forms: - Medication Reconciliation Form josh - Thank You Letter josh - Antibiotic Education josh - Prescription Opioid Use josh Signatures: Dispatcher [employer] EDLj Rm PA PA jmm Ebrottie, Kouassi RN RN ke1 Rae Loredo RN RN kb3
--- NOTE | 2022-07-22 22:52 | ER ---
Nurse's Notes [facility] Name: Jenni Draper Age: 42 yrs Sex: Female : 1980 Arrival Date: 07/22/2022 Time: 20:21 Bed 15 Private MD: Diagnosis: Chest pain, unspecified Presentation: 07/22 20:43 Chief complaint: Patient states: Chest pain, SOB, nausea and dizzy since 1600 today. kb3 NAD. Coronavirus screen: Vaccine status: Patient reports receiving the 2nd dose of the covid vaccine. Client denies travel out of the [place] in the last 14 days. Ebola Screen: Patient negative for fever greater than or equal to 101.5 degrees Fahrenheit, and additional compatible Ebola Virus Disease symptoms Patient denies exposure to infectious person. Patient denies travel to an Ebola-affected area in the 21 days before illness onset. Initial Sepsis Screen: Does the patient meet any 2 criteria? No. Patient's initial sepsis screen is negative. Does the patient have a suspected source of infection? No. Patient's initial sepsis screen is negative. Risk Assessment: Do you want to hurt yourself or someone else? Patient reports no desire to harm self or others. Onset of symptoms was July 22, 2022 at 16:00. 20:43 Method Of Arrival: Ambulatory kb3 20:43 Acuity: LYUBOV 2 kb3 Triage Assessment: 20:44 General: Appears in no apparent distress. Behavior is calm, cooperative. Pain: kb3 Complains of pain in chest Pain does not radiate. Pain currently is 10 out of 10 on a pain scale. Quality of pain is described as sharp, Pain began 1 day ago. Cardiovascular: Reports chest pain, nausea. 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 LMP N/A - Hysterectomy kb3 Historical: - Allergies: 20:44 Adhesives; kb3 20:44 Aspirin; kb3 20:44 Bactrim; kb3 20:44 Benadryl; kb3 20:44 cefixime; kb3 20:44 Cipro IV; kb3 20:44 Clindamycin; kb3 20:44 coconut oil; kb3 20:44 Detrol; kb3 20:44 Diltiazem; kb3 20:44 Doxycycline; kb3 20:44 FISH PRODUCT DERIVATIVES; kb3 20:44 GABAPENTIN; kb3 20:44 Iodine; kb3 20:44 ivabradine; kb3 20:44 Latex, Natural Rubber; kb3 20:44 Morphine; kb3 20:44 PENICILLINS; kb3 20:44 Seroquel; kb3 20:44 Sulfa (Sulfonamide Antibiotics); kb3 20:44 tramadol; kb3 - PMHx: 20:44 Anxiety; Atrial fibrillation; Bipolar disorder; COPD; CVA; Seizure; kb3 - PSHx: 20:44 hysterectomy; pacemaker; kb3 - Immunization history:: Adult Immunizations up to date, Client reports receiving the 2nd dose of the Covid vaccine, Last tetanus immunization: up to date. - Social history:: Smoking status: Patient denies any tobacco usage or history of. Screenin:28 Abuse screen: Denies threats or abuse. Nutritional screening: No deficits noted. ke1 Tuberculosis screening: No symptoms or risk factors identified. Fall Risk No fall in past 12 months (0 pts). No secondary diagnosis (0 pts). IV access (20 points). Ambulatory Aid- None/Bed Rest/Nurse Assist (0 pts). Gait- Weak (10 pts.). Mental Status- Oriented to own ability (0 pts). Total Jolly Fall Scale indicates Low Risk Score (25-44 pts). Fall prevention measures have been instituted. Side Rails Up X 2 Placed close to Nursing Station Frequent Obs/Assesments occuring Family Present and informed to notify staff if they need to leave bedside As available Patient and Family Educated on Fall Prevention Program and strategies. Assessment: 21:10 Pain: Complains of pain in chest Pain radiates to L arm Pain currently is 9 out of 10 ke1 on a pain scale. at worst was 10 out of 10 on a pain scale. level that patient reports is acceptable is 5 out of 10 on a pain scale. Quality of pain is described as pressure. 22:30 Pain: Complains of pain in chest Pain currently is 7 out of 10 on a pain scale. at ke1 worst was 10 out of 10 on a pain scale. level that patient reports is acceptable is 5 out of 10 on a pain scale. Vital Signs: 20:43 BP 104 / 76; Pulse 85; Resp 20; Temp 98; Pulse Ox 100% ; Weight 56.7 kg; Height 4 ft. kb3 11 in. (149.86 cm); Pain 10/10; 21:30 Pain 7/10; ke1 21:32 BP 104 / 74; Pulse 94; Resp 22; Pulse Ox 97% on R/A; ke1 22:31 BP 103 / 72; Pulse 89; Resp 15; Temp 98.2; Pulse Ox 96% on R/A; ke1 22:45 Pain 2/10; ke1 20:43 Body Mass Index 25.25 (56.70 kg, 149.86 cm) kb3 ED Course: 20:21 Patient arrived in ED. bp1 20:42 Lj Tobin PA is PHCP. jmm 20:42 Matheus Bridges MD is Attending Physician. jmm 20:44 Triage completed. kb3 20:44 Arm band placed on right wrist. Patient placed in an exam room, on a stretcher. EKG kb3 completed in triage. Results shown to MD. 20:52 Sanchez Christianson, RN is Primary Nurse. ke1 21:12 Inserted saline lock: 20 gauge in left antecubital area, using aseptic technique. ke1 21:12 Basic Metabolic Panel Sent. ke1 21:12 CBC with Diff Sent. ke1 21:12 Troponin HS Sent. ke1 21:29 Bed in low position. Call light in reach. Side rails up X 1. Side rails up X2. ke1 21:29 Client placed on continuous cardiac and pulse oximetry monitoring. NIBP monitoring ke1 applied. 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 Pulse ox on. NIBP on. 21:29 Patient maintains SpO2 saturation greater than 95% on room air. ke1 22:01 XRAY Chest (1 view) In Process Unspecified. EDMS 22:57 No provider procedures requiring assistance completed. IV discontinued. ke1 Administered Medications: 21:15 Drug: fentaNYL (PF) 50 mcg Route: IVP; Site: left antecubital; ke1 21:30 Follow up: Pain 7/10 Adult ke1 21:15 Drug: Zofran (Ondansetron) 4 mg Route: IVP; Site: left antecubital; ke1 21:30 Follow up: Response: Nausea is decreased ke1 22:29 Drug: Dilaudid (HYDROmorphone) 0.5 mg Route: IVP; Site: left antecubital; ke1 22:45 Follow up: Pain 2/10 Adult ke1 Medication: 22:57 VIS not applicable for this client. ke1 Outcome: 22:51 Discharge ordered by . josh 22:57 Discharged to home ambulatory. ke1 22:57 Condition: good 22:57 Discharge instructions given to patient. 22:57 Patient left the ED. ke1 Signatures: Dispatcher [employer] EDMS Lj Tobin PA PA jmm Paniauga, Brittany bp1 Ebrottie, Kouassi RN RN ke1 Rae Loredo RN RN kb3
[2022-07-22 23:23] VITALS: BP 103/72; TEMP 98.2; O2SAT 96
--- NOTE | 2022-07-25 16:05 | EKG ---
Test Date: 2022-07-22 Test Time: 20:37:30 Shipping Specialist: BARBIE MEASUREMENT RESULTS: Intervals: Rate: 85 IA: 156 QRSD: 90 QT: 348 QTc: 414 Musella: P: 41 IA: 156 QRS: 47 T: 39 INTERPRETIVE STATEMENTS: Normal sinus rhythm Normal ECG Compared to ECG 05/28/2022 22:20:59 No significant changes Electronically Signed On 07-25-22 15:59:49 CDT by Judson Payne
== END 2022-07-22 22:57 | disposition home or self-care (01) ==
LOC: ER 20:18
DX: R07.9 Chest pain, unspecified (principal); I48.91 Unspecified atrial fibrillation; Z95.0 Presence of cardiac pacemaker
CPT/HCPCS: 93005; 85025; 80048; 36415; 84484; 71045; 96375; 96374; 99285; J3010; J1170; J2405

== ENCOUNTER 2023-02-02 17:14 | Emergency (ER) | payer OTHER ==
--- OUTSIDE RECORDS SUMMARY | 2023-02-02 17:44 | XMS REPORT | Continuity of Care Document ---
:[address] [facility] t Address [address] [facility] [address] [place] [address] Support Name Relationship Address Phone JAIME RIVERA [address] [phone] [place] [address] MARTY CHAUDHARY P [address] [facility] 3 [phone] [place] [address] JAIME RIVERA Unavailable [phone] Isatu Rivera Mother [address] [place] [address] JetAngeln Child Unavailable Marty Bob Significant Other [address] [place] [address] Marty Bob Significant Other [address] [place] [address] KIMBERLEE LARSEN, AUREA Waters Emergency Provider [address] [facility] [id number] [place] [address] CAROLINE LARSEN, SILVERIO Primary Care Physician [address] [place] [address] BRENDAN LINDQUIST MD Emergency Provider [address] [facility] [place] [address] MD SILVERIO VELAZQUEZ Primary Care Physician [address] [place] [address] MD GERMAINE KUMARI Admitting Provider [address] [place] [address] MD BAILEY HART Emergency Provider [address] [phone] [place] [address] N, G Unavailable / [phone] MARTY CHAUDHARY Unavailable [address] [facility] [place] [address] Korin Chaudhary Spouse Unavailable MARTY CHAUDHARY SRI [address] [place] [address] Care Team Providers Name Role Phone SILVERIO VELAZQUEZ MIMA Primary Care Physician Unavailable AMADO PADILLA Attending Clinician Unavailable KOFFI VERA Attending Clinician Unavailable Jaime Boone Attending Clinician Unavailable TEOFILO SYKES Attending Clinician Unavailable TEOFILO SYKES Attending Clinician Unavailable NAVI ROMEO Attending Clinician Unavailable MARY BONDS Attending Clinician Unavailable MARIO TRINIDAD Attending Clinician Unavailable MONA RODRIGUEZ Attending Clinician Unavailable JORDANA KINSEY Attending Clinician Unavailable ROSSI WHEAT Attending Clinician Unavailable Jovani Steele DO Attending Clinician Rossi Wheat MD Attending Clinician [phone] NICHOLAS PATRICIA Attending Clinician Unavailable Nicholas Patricia MD Attending Clinician LILLIE GARCIA Attending Clinician Unavailable Lillie Tuttle Attending Clinician Mario Trinidad MD Attending Clinician NURYS FULLER Attending Clinician Unavailable ANDIE KURTZ Attending Clinician Unavailable Andie Kurtz MD Attending Clinician Tucker Valiente DO Attending Clinician Jonny Hollins MD, Chilvana Attending Clinician Doctor Unassigned, Lismore Attending Clinician Unavailable Andrey Benito Attending Clinician TUCKER VALIENTE Attending Clinician Unavailable TUCKER VALIENTE Attending Clinician Unavailable NATALI MONTES Attending Clinician Unavailable Natali Montes PA-C Attending Clinician Visit, Adc Nurse Attending Clinician Unavailable Amelie MD, Jordana A Attending Clinician MATT WOOD Attending Clinician Unavailable Pob, Adc Lab Main Attending Clinician Unavailable Ousmane LARSEN, Navi Merida Attending Clinician LESTER ANDERSEN Attending Clinician Unavailable Ganesh LARSEN, Lester Attending Clinician Corine RN, Catie Jerez Attending Clinician STUART AREVALO Attending Clinician Unavailable Doreen LARSEN, Vladislav Livingston Attending Clinician Irina LARSEN, Stuart Attending Clinician Pooja BARRAGAN, Katherine Carlos Attending Clinician Unavailable ALFREDO ECHAVARRIA Attending Clinician Unavailable Jericho LARSEN, Alfredo Paredes Attending Clinician Leo LARSEN, Teofilo Quach Attending Clinician RADHA ABRAMS Attending Clinician Unavailable Radha Abrams DO Attending Clinician Sonny BARRAGAN, Yomaira Attending Clinician Unavailable Chevy MARTIN Attending Clinician Unavailable Chevy Espinoza Attending Clinician ANDREY TELLES Attending Clinician Unavailable Ann Hickman MA Attending Clinician Unavailable KYAW STACK Attending Clinician Unavailable Kyaw Stack DO Attending Clinician Kanika Meza MD Attending Clinician KANIKA MEZA Attending Clinician Unavailable PONCE FIELD Attending Clinician Unavailable Jose Fuller MD Attending Clinician [phone] [place]once Field MD Attending Clinician SOL SANCHEZ Attending Clinician Unavailable FLOR Attending Clinician Unavailable ERNIE RODAS Attending Clinician Unavailable ERNIE RODAS Attending Clinician Unavailable Chiquis Sim MD Attending Clinician GUCCI JOSHI Attending Clinician Unavailable Gucci Joshi MD Attending Clinician [phone] ANDREWS PRIETO Attending Clinician Unavailable Kayla LARSEN, Andrews Attending Clinician Pipes ANP, Mona Attending Clinician Tech, Jsh Eeg Attending Clinician Unavailable KARLA LANDEROS Attending Clinician Unavailable Leti ELECTROMECHANICAL TECHNOLOGIST, Karla Delgadillo Attending Clinician Padmini LARSEN, Tyler Attending Clinician APOORVA, DIEUDONNE Attending Clinician Unavailable Apoorva LARSEN, Dieudonne Attending Clinician Patti LARSEN, Chuy Attending Clinician Omari RALPH, Ann Attending Clinician Unavailable nAtonio LARSEN, Hector Ochoa Attending Clinician Cici LARSEN, Veda Mendez Attending Clinician Sho LARSEN, Matt Attending Clinician HERNESTO BRIAN Attending Clinician Unavailable HERNESTO BRIAN Attending Clinician Unavailable Jody LARSEN, Koffi Walden Attending Clinician Unavailable Chucho BARRAGAN, Carmen Livingston Attending Clinician Unavailable AVNI SHEFFIELD Attending Clinician Unavailable Kanika Hoang Attending Clinician Mike LARSEN, Malika Attending Clinician Nevaeh BARRAGAN, Dayana Attending Clinician Unavailable 2, Adc Lab Attending Clinician Unavailable STEPHANIE MONROY Attending Clinician Unavailable CLEMENTINE KEENAN Attending Clinician Unavailable Only, Adc Test Attending Clinician Unavailable Win Pantoja MD Attending Clinician Hernesto Brian MD Attending Clinician Matilde INFANTE, Marialuisa Attending Clinician Amado Padilla MD Attending Clinician Jose Alberts MD Attending Clinician Marline LOPEZPMartin Attending Clinician Anesthesia-Yana, Ep Lab Attending Clinician Unavailable Outpt-Yana, Ep Lab Attending Clinician Unavailable Frank BARRAGAN, Abimbola Attending Clinician Unavailable Ralph LARSEN, Shawn Attending Clinician Caroline LARSEN, Silverio Vallejo Attending Clinician Kayy LARSEN, Love Attending Clinician LOVE CORRIGAN Attending Clinician Unavailable Jenifer GROSSMAN, Panda F Attending Clinician PANDA BURGESS Attending Clinician Unavailable Armando Velasquez MD Attending Clinician ARMANDO VELASQUEZ Attending Clinician Unavailable Concha BARRAGAN, Deja Delgadillo Attending Clinician Unavailable Danny LARSEN, Jeff Attending Clinician Nagi Perea MD, Manfred Attending Clinician Tucker Suarez Attending Clinician Lin LOPEZP, Fauzia Clayton Attending Clinician JOSE GALVEZ Attending Clinician Unavailable LYLY SUE Attending Clinician Unavailable TYLER JEAN Admitting Clinician Unavailable JOSE ALBERTS Admitting Clinician Unavailable KOFFI VERA Admitting Clinician Unavailable NICHOLAS PATRICIA Admitting Clinician Unavailable LILLIE GARCIA Admitting Clinician Unavailable ANDIE KURTZ Admitting Clinician Unavailable ROSSI WHEAT Admitting Clinician Unavailable NATALI MONTES Admitting Clinician Unavailable MARIO TRINIDAD Admitting Clinician Unavailable Mario Trinidad MD Admitting Clinician TUCKER VALIENTE Admitting Clinician Unavailable LESTER ANDERSEN Admitting Clinician Unavailable STUART AREVALO Admitting Clinician Unavailable Stuart Arevalo MD Admitting Clinician ALFREDO ECHAVARRIA Admitting Clinician Unavailable Alfredo Echavarria MD Admitting Clinician RADHA ABRAMS Admitting Clinician Unavailable Chevy MARTIN Admitting Clinician Unavailable KYAW STACK Admitting Clinician Unavailable JOSE FULLER Admitting Clinician Unavailable Jose Fuller MD Admitting Clinician [phone] FLOR Admitting Clinician Unavailable KARLA LANDEROS Admitting Clinician Unavailable Tyler Jean MD Admitting Clinician Chuy Armstrong MD Admitting Clinician MATT BERKOWITZ Admitting Clinician Unavailable Mike LARSEN, Malika Admitting Clinician Lexus LARSEN, Jose Admitting Clinician PANDA BURGESS Admitting Clinician Unavailable MORRICAL, ARMANDO Pradhan Admitting Clinician Unavailable Danny LARSEN, Jeff Admitting Clinician JOSE GALVEZ Admitting Clinician Unavailable LYLY SUE Admitting Clinician Unavailable Payers Payer Name Policy Type Policy Number Effective Expiration Source Date Date [facility] [id number] 2011 MEDICAID 00:00:00 GENERIC MEDICAID HMO [id number] 2011 00:00:00 [facility] [id number] 2022 00:00:00 [facility] [id number] 2011 Met amarilys [facility]PL[facility] 00:00:00 Hospital [id number] 2010- PresentHMO [facility] [id number] 2018 [facility] MEDICAIDMEDICAID 00:00:00 Medical [id number] 018-Present Problems Condition Condition Condition Status Onset Resolution Last Treating Co mments Source Name Details Category Date Date Treatment Clinician Date Paroxysmal Paroxysmal Disease Active Overview : Univers supraventr supraventr 2-14 Formattin ity of icular icular 00:00: g of this [place] tachycardi tachycardi 00 note Me dical a a might be Branch different from the original. Added automatic ally from request for surgery [id number] Other Other Disease Active Univers chest pain chest pain - it y of 00:00: 00 Medical Branch COVID-19 COVID-19 Disease Active 2021-09 Unive rs 2-30 ity of 00:00: Medical Branch Recurrent Recurrent Disease Active 2021-09 Uni vers seizures seizures 2-12 ity of 00:00: Medical Branch Neck pain Neck pain Disease Active 2021-09 Uni vers 2-12 ity of 00:00: Medical Branch Left-sided Left-sided Disease Active U nivers weakness weakness 7-23 ity of 00:00: Medical Branch History of History of Disease Active U nivers DVT (deep DVT (deep 4-11 ity of vein vein 00:00: [place] thrombosis thrombosis 00 Me dical ) ) Branch Palpitatio Palpitatio Disease Active U nivers ns ns 4-11 ity of 00:00: [place] [facility] Elevated Elevated Disease Active Unive rs d-dimer d-dimer 7- ity of 00:00: [place] [facility] Left-sided Left-sided Disease Active [facility] 5[facility]21 [facility] 00 Center Received Received Disease [facility] tissue [facility]21 [facility] plasminoge plasminoge 00:00: Me dical n n 00 Center activator activator (t-PA) (t-PA) less than less than 24 hours 24 hours prior to prior to arrival arrival Acute Acute Disease Recurre [facility] ischemic ischemic nce 5-20 [facility] stroke stroke 00:00: [facility] 00 Center Atypical Atypical Disease Active Unive rs chest pain chest pain 4-20 it y of 00:00: [place] [facility] Chest pain Chest pain Disease Active [facility] in adult in adult 4-20 [facility] 00:00: [facility] 00 [place] Inappropri Inappropri Disease Active 2019-09 U nivers [...] Disease Active Univers 2-04 ity of 00:00: [place] 00 Medical Branch PVT PVT Disease Active Univers (paroxysma (paroxysma 2-04 it y of l l 00:00: [place] ventricula ventricula 00 Me dical r r Branch tachycardi tachycardi a) a) Digoxin Digoxin Disease Active Univers toxicity toxicity 2-04 ity of 00:00: [place] 00 Medical Branch Seizure Seizure Disease Active 2018-09 Univers 2- ity of 00:00: [place] [facility] AN AN Disease Active 2018-09 Univers (dyspnea (dyspnea 2- ity of on on 00:00: [place] exertion) exertion) 00 [facility] Branch Seizure Seizure Disease Recurre 2018-[address] disorder disorder nce 2 [facility] 00:[facility]: Medical 00 Center Mitral Mitral Disease Active Univers valve valve 04-29 ity of regurgitat regurgitat [place] 00 [facility] Excessive Excessive Disease Active Uni vers anticoagul anticoagul 04-29 it y of ation ation 00:00: [place] 00 Medical Branch Deep vein Deep vein Disease Active Uni vers thrombosis thrombosis 04-29 it y of of lower of lower 00:00: [place] extremity extremity 00 [facility] Branch Anxiety Anxiety Disease Active [facility] [...] of anemia, anemia, 00:00: g of this [place] unspecifie unspecifie 00 note Me dical d iron d iron might be Branch deficiency deficiency different anemia anemia from the type type original. Added automatic ally from request for surgery [id number] Abdominal Abdominal Disease Active 2017-09 Overview: Univers pain, pain, 0-19 Formattin ity of unspecifie unspecifie 00:00: g of this [place] d d 00 note Medical abdominal abdominal might be Br anch location location different from the original. Added automatic ally from request for surgery [id number] Nausea and Nausea and Disease Active 2017-09 Overview : Univers vomiting, vomiting, 0-19 Formattin i ty of intractabi intractabi 00:00: g of this [place] lity of lity of 00 note Medical vomiting vomiting might be Bran ch not not different specified, specified, from the unspecifie unspecifie original. d vomiting d vomiting Added type type automatic ally from request for surgery [id number] Non-cardia Non-cardia Disease Active U nivers c chest c chest 8-03 ity of pain pain 00:00: Medical Branch Essential Essential Disease Active Uni vers hypertensi hypertensi 8 it y of on on 00:00: Medical Branch Pacemaker Pacemaker Disease Active Uni vers 8 ity of 00:00: Medical Branch PAF PAF Disease Recurre [facility] (paroxysma (paroxysma nce 04-27 Jeanie kes l atrial l atrial [...] Medical Branch Pseudoseiz Pseudoseiz Disease Active U yossiers ure ure 7-22 ity of 00:00: Medical [...] different from the original. ICD10 Diagnosis Term Gun Number Utility Hypoglycem Hypoglycem Disease Active 2012-09 Overview : Univers ia ia 10-21 Formattin ity of 00:00: g of this [place] note Medical might be Branch different from the original. ICD10 Diagnosis Term Gun Number Utility A-fib A-fib Disease Active Methodi st [...] ity of 00:00: [place] 00 Medical Branch ivabradi DA Active MO RASH 2020-0 [facility] ne [facility]-04 [place] 00:[facility]: d 00 [facility] coconut FA Active MO RASH 2020-0 [facility] 1-04 [place] 00:[facility]: d 00 [facility] Center Penicill DA Active SV 2020-0 [facility] ins 1-04 [place] 00:00: d 00 [facility] Center Sulfa DA Active MO 2020-0 [facility] (Sulfona -04 [place] mide 00:00: d Antibiot 00 Medical ics) Center Fish FA Active SV 0 [facility] Containi 1-04 [place] ng 00:00: d Products 00 [facility] Center iodine DA Active MO 2020-0 [facility] 1-04 [place] 00:00: d 00 [facility] Center morphine DA Active SV 2020-0 [facility] 1-04 [place] 00:00: d 00 Medical Center aspirin DA Active SV 2020-0 [facility] 1-04 [place] 00:00: d [facility] trimetho DA Active MO 2020-0 [...] [facility] te 09-28 [place] 00:00: d 00 [facility] [...] [facility] ne 09-28 [place] 00:00: d 00 [facility] Center coconut FA Active MO 1-0 [...] iodine DA Active MO RASH 1-0 [facility] -04 [place] 00:00: d 00 Medical Center morphine DA Active SV ANAPHYLAXIS 2020-0 [facility] SHOCK 09-28 [place] 00:00: d 00 Medical Center aspirin DA Active SV ANAPHYLAXIS 1-0 [facility] SHOCK 09-28 [place] 00:00: d 00 Medical Center cephalex DA Active SV HIVES 1-0 [facility] in - [place] 00:[facility]: d 00 Medical Center cefixime DA Active MO HIVES 1-0 [facility] -04 [place] 00:00: d 00 Medical Center doxycycl DA Active SV RASH 2020-0 [facility] ine 09-28 [place] 00:00: d 00 Medical Center clindamy DA Active MO RASH 2020-0 [facility] stephan 1-04 [place] 00:00: d 00 Medical Center sulfamet DA Active MO RASH [facility] hoxazole 1-04 [place] 00:00: d 00 Medical [place] trimetho DA Active MO RASH [facility] prim 1-04 [place] 00:00: d 00 Medical [place] ciproflo DA Active SV HIVES [facility] xacin 1-04 [place] 00:00: d 00 Medical [place] adhesive DA Active SV BLISTERS [facility] tape 1-04 [place] 00:00: d 00 Medical [place] tramadol DA Active SV HIVES [facility] 1-04 [place] 00:00: d [address] [facility] gabapent DA Active SV RASH [facility] in 1- [place] 00:00: d [address] [facility] diltiaze DA Active SV SHORTNESS OF 2020- HC A m BREATH 1-04 [place] 00:00: d [facility] diphenhy DA Active SV RASH [facility] dramine 1-04 [place] 00:00: d [address] [facility] topirama DA Active SV HIVES/MEMORY HC A te LOSS 1-04 [place] 00:00: d [address] [facility] levoflox DA Active SV HIVES 2020-0 [facility] acin 1-04 [place] 00:00: d [address] [facility] quetiapi DA Active MO RASH 2020-0 [facility] ne 1-04 [place] 00:00: d [address] [facility] tolterod DA Active MO RASH [facility] ine 1-04 [place] 00:00: d [address] [facility] latex DA Active SV BLISTERS [facility] 1-04 [...] Allergy Active High Anaphylaxis 2017-09 [facility] HOXAZOLE 10-17 -TRIMETH 00:00: OPRIM 00 GABAPENT Allergy Active High Sob 2017-09 [facility] IN 10-17 00:00: 00 IODINE Allergy Active High Rash 2017-09 [facility] AND 10-17 IODIDE 00:00: CONTAINI 00 NG PRODUCTS MORPHINE Allergy Active High Anaphylaxis 2017-09 [facility] 10-17 00:00: 00 PENICILL Allergy Active High Anaphylaxis 2017-09 [facility] INS 10-17 00:00: 00 DIPHENHY Allergy Active N\\T\\V 2017-09 SLE DRAMINE 10-17 H[facility] 00:00: 00 CIPROFLO Allergy Active 2017-09 SLE XACIN 10-17 00:00: 00 [place] Propensi Active Anaphylaxis 2017-[address] ins ty to 10-17 [facility] adverse 00:00: Medical reaction 00 Center s Sulfa Propensi Active Rash 2017-[address] (Sulfona ty to 10-17 [facility] mide adverse 00:00: Medical Antibiot reaction 00 Center ics) s CODEINE Allergy Active 2017-09 [facility] 10-17 [...] 10-17 [facility] adverse 00:00: Medical reaction 00 [place] [facility] Sulfa Propensi Active Rash 2017-[address] (Sulfona ty to 10-17 [facility] mide adverse 00:00: Medical Antibiot reaction 00 [facility]) s Cefixime Propensi Active Rash 2017-[address] ty to 10-17 [facility] adverse 00:00: Medical reaction 00 [place] [facility] Tramadol Propensi Active Rash 2017-[address] ty to 10-17 [facility] adverse 00:00: Medical reaction 00 [place] Adhesive Propensi Active Rash 2017-09 Can use [facility] t Tape ty to 10-17 papertape [facility] adverse 00:00: . Medical reaction 00 [place] [facility] Sulfamet Propensi Active Anaphylaxis 2017-[address] hoxazole ty to 10-17 [facility] -Trimeth adverse 00:00: Medical oprim reaction 00 [place] [facility] Diphenhy Propensi Active Nausea And 2017-[address] dramine ty to Vomiting 10-17 [facility] Hcl adverse 00:00: Medical reaction 00 [place] [facility] Ciproflo Propensi Active 2017-[address] xacin ty to 10-17 aches. [facility] adverse 00:00: Medical reaction 00 [place] [facility] Clindamy Propensi Active Rash 2017-[address] stephan ty to 10-17 [facility] adverse 00:00: Medical reaction 00 [place] [facility] Tolterod Propensi Active Rash 2017-[address] ine ty to 10-17 [facility] adverse 00:00: Medical reaction 00 [place] [facility] Gabapent Propensi Active Shortness Of 2017-[address] in ty to Breath, Rash 10-17 Luke s adverse 00:00: Medical reaction 00 [place] [facility] Iodine Propensi Active Rash 2017-[address] And ty to 10-17 [facility] Iodide adverse 00:00: Medical Containi reaction 00 [place] ng s Products Sulfamet Propensi Active Rash 2017-09 Method i hoxazole ty to 10-17 st -Trimeth adverse 00:00: Hospita oprim reaction 00 l s to drug Cefixime Propensi Active Rash 2017-09 Method i ty to 10-17 st adverse 00:00: Hospita reaction 00 l s to drug CLINDAMY Allergy Active Low Rash 2017-09 [facility] STEPHAN 10-17 00:00: 00 TOLTEROD Allergy Active Low Rash 2017-09 [facility] INE 10-17 00:00: 00 COCONUT DRUG Active Hives 2017- Univers INGREDI [...] s to drug DIPHENHY DRUG Active Hives 2017- Univers DRAMINE INGREDI 4-12 ity of HCL 00:00: [place] 00 Medical Branch CLINDAMY DRUG Active Rash 2017-0 Univers STEPHAN INGREDI 4-12 ity of 00:00: [place] 00 Medical Branch GABAPENT DRUG Active Rash 2017- Univers IN INGREDI 4-12 ity of 00:00: [place] 00 Medical Branch IODINE DRUG Active N/V 2018-0 Univers INGREDI 4-12 ity of 00:00: [...] Medical s Branch Iodine Propensi Active Rash Methodi And ty to -12 st Iodide adverse 00:00: Hospita Containi reaction 00 l ng s to Products drug Diphenhy Propensi Active Other (See Me thodi dramine ty to Comments) 12 st adverse 00:00: Hospita reaction 00 l s to drug Gabapent Propensi Active Shortness Of Methodi in ty to Breath 412 st adverse 00:00: Hospita reaction 00 l s to drug Iodine Propensi Active Rash Methodi And ty to 01-04 st Iodide adverse 00:00: Hospita Containi reaction 00 l ng s to Products drug Clindamy Propensi Active Rash Method i stephan ty to 01-04 st adverse 00:00: Hospita reaction 00 l s to drug MORPHINE DRUG Active High Anaphylaxis 2017 Uni vers INGREDI 0-05 ity of 00:00: [place] [facility] Morphine Propensi Active Anaphylaxis 2017 U nivers ty to 0-05 ity of adverse 00:00: [place] reaction Medical s Branch Morphine Propensi Active Anaphylaxis 2016-09 M [address]i ty to st adverse 00:00: Hospita reaction 00 l s to drug TRAMADOL DRUG Active Unknown-Cmnt Un [place] INGREDI 06-22 ity of 00:00: [place] [facility] Tramadol Propensi Active Unknown - [...] 00 Medical Branch QUETIAPI DRUG Active Rash 2016 Univers NE INGREDI 04-20 ity of FUMARATE 00:00: [place] [facility] Quetiapi Propensi Active Rash 2016 Univer s ne ty to 04-20 ity of Fumarate adverse 00:00: [place] reaction 00 Medical s Branch Quetiapi Propensi Active Rash confusion Met hodi ne ty to 04-20 adverse 00:00: Hospita reaction 00 l s to drug ALUMINUM DRUG Active High Anaphylaxis Uni vers ASPIRIN INGREDI 01-18 ity of 00:00: [place] 00 Medical Branch PENICILL DRUG Active High Anaphylaxis Uni vers IN INGREDI 01-18 ity of 00:00: [place] 00 Medical Branch Aluminum Propensi Active Anaphylaxis 2016 U nivers Aspirin ty to 01-18 ity of adverse 00:00: [place] reaction 00 Medical s Branch Penicill Propensi Active Anaphylaxis 0 U nivers in ty to 01-18 ity of adverse 00:00: [place] reaction 00 Medical s Branch Ciproflo Propensi Active Other (See 0 Muscle Me thodi xacin ty to Comments) 02-[address] adverse 00:00: [facility] a reaction 00 Muscle l s to aches drug ASPIRIN DRUG Active High Anaphylaxis Univ ers INGREDI 12-31 ity of 00:00: [place] 00 Medical Branch Aspirin Propensi Active Anaphylaxis 0 Me thodi ty to 12-31 st adverse 00:00: Hospita reaction 00 l s to drug TOLTEROD DRUG Active Rash 2012-09 Univers INE INGREDI 10-20 ity of TARTRATE 00:00: [place] 00 Medical Branch LATEX DRUG Active Rash 2012-09 Univers INGREDI 10-20 ity of 00:00: [place] 00 Medical Branch ADHESIVE DRUG Active Low Rash 2012-09 Univers TAPE-MINA 10-20 ity of ICONES 00:00: [place] 00 Medical Branch SULFA Drug Active Low Rash 2012-09 Univers (SULFONA Class 10-20 ity of MIDE 00:00: [place] ANTIBIOT 00 Medical ICS) Branch Adhesive Propensi Active Rash 2012-09 Can use Unive rs Tape-Mina ty to 10-20 papertape ity o f [...] Active Rash 2012-09 Can use Metho di Tape-Mina ty to 10-[address] icones adverse [...] Hospita reaction 00 l s to drug Family History Family Member Diagnosis Comments Start Date Stop Date Source Natural father DVT (deep venous Univ ersity of thrombosis) [facility] Natural father High cholesterol Univ [facility] Natural father Hypertension Universi ty [facility] Natural father Other - see Universit y of comments [facility] Natural father Stroke [facility] Natural father Thyroid [facility] Natural mother Thyroid [facility] Paternal GI [facility] Paternal Thyroid [facility] Paternal Diabetes [facility] Paternal Heart [facility] Paternal Other - see [facility] Paternal Stroke [facility] Natural sister Breast Cancer Univers [facility] Natural sister Colon Cancer Universi ty [facility] Natural son Asthma [facility] Natural son Bipolar disorder Univers ity [facility] Natural son Genetic [facility] Natural son Neurological [facility] Social History Social Habit Start Date Stop Date Quantity Comments Source History [facility] History [facility] Gender identity [facility] Sexual orientation [facility] Exposure to 2023-01-15 2023-01-25 Not sure University of SARS-CoV-2 (event) 00:00:00 16:23:00 [facility] History SDOH Food 2022-09-12 2022-09-12 1 Univers ity of Worry 00:00:00 00:00:00 [facility] History SDOH Food 2022-09-12 2022-09-12 1 Univers ity of Scarcity 00:00:00 00:00:00 [place] [facility] History SDOH 2022-09-12 2022-09-12 2 University o f Transport Med 00:00:00 00:00:00 [place] [facility] History SDSC 2022-09-12 2022-09-12 2 University o f Transport Non-Med 00:00:00 00:00:00 [facility] edical Branch Cigarettes smoked 2022-04-05 2022-04-05 Univers ity of current (pack per 00:00:00 00:00:00 [facility] day) - Reported Branch Cigarette 2022-04-05 2022-04-05 University of pack-years 00:00:00 00:00:00 [facility] Tobacco use and 2022-04-05 2022-04-05 Smokeless Universit y of exposure 00:00:00 00:00:00 tobacco non-user [facility] dicnh Branch Education 2021-03-25 2021-03-25 12 University of 00:00:00 00:00:00 [facility] History of Social 2021-03-18 2021-03-[address] function 00:00:00 00:00:00 Hospital Alcohol intake 2021-03-17 2021-03-17 Current Buddhist 00:00:00 00:00:00 non-drinker of Hospital alcohol (finding) History [facility] 2019-10-29 2019-10-29 5 University o f Financial 00:00:00 00:00:00 [facility] History [facility] 2018-09-05 2018-09-05 1 Buddhist Alcohol Frequency 00:00:00 00:00:00 Hospita l History of tobacco 2001-05-09 Cigarette Smoker University of use 00:00:00 [facility] Sex Ass[birth year] At [birth year] Buddhist 00:00:00 00:00:00 Hospital Smoking Status Start Date Stop Date Source Ex-smoker 2022-04-05 00:00:00 2022-04-05 00:00:00 Universi ty of [facility] Medications Ordered Filled Start Stop Current Ordering Indication Dosage Frequency Signature Comments Components Source Medication Medication Date Date Medication? Clinician (SIG) Name Name FENTanyl PF 2022-2022- No 50ug 50 mcg, Un austyn (SUBLIMAZE 01-26 Slow IV ity o f (PF)) 02:00: 01:00 Push, [place] injection 00 :00 ONCE, 1 Medical 50 mcg dose, On Branch Mon01/25/23 at 2100, Routine ondansetron 2022- No 4mg 4 mg, Slow Univers (ZOFRAN 01-26 IV Push, ity of (PF)) 01:00: 00:57 ONCE, 1 [place] injection 4 00 :00 dose, On Medi blane mg Mon01/25/23 Branch at 2000, GIGI ketorolac 2022- No 30mg 30 mg, Unive rs (TORADOL) 01-25 Slow IV ity of injection 12:45: 11:44 Push, [place] 30 mg 00 :00 ONCE, 1 Medical dose, On Branch Mon01/25/23 at 0745, GIGI NaCl 0.9% 2022- No 1000mL at 999 Uni vers (NS) bolus 01-25 mL/hr, ity of infusion 09:45: 10:47 1,000 mL, [place] 1,000 mL 00 :00 IV Medical Infusion, Branch ONCE, 1 dose, On Mon01/25/23 at 0445, GIGI FENTanyl PF No 25ug 25 mcg, Un [place] (SUBLIMAZE 01-25 Slow IV ity o f (PF)) 09:00: 09:42 Push, [place] injection 00 :00 ONCE, 1 Medical 25 mcg dose, On Branch Mon01/25/23 at 0400, STAT ondansetron 2022- No 4mg 4 mg, Slow Univers (ZOFRAN 01-25 IV Push, ity of (PF)) 09:00: 09:42 ONCE, 1 [place] injection 4 00 :00 dose, On Medi blane mg Mon01/25/23 Branch at 0400, GIGI methylPREDN 2022-0 Yes [id number] Take by [facility] ISolone 4 - mouth ity of mg tablets 00:00: [place]INSTRU [place] 00 CTIONS. Medical follow Branch package directions methylPREDN 2022-0 Yes [id number] Take by [facility] ISolone 4 - mouth ity of mg tablets 00:00: [place]INSTRU [place] 00 CTIONS. Medical follow Branch package directions proMETHazin Yes [id number] 25mg Take 1 Univers e 25 mg 5-03 tablet by ity of tablet 00:00: mouth [place] 00 every 6 Medical (six) Branch hours as needed for Nausea and Vomiting (N/V). metoclopram 2022- No 10mg 10 mg, Uni vers christian HCl 01-24 Slow IV ity of (REGLAN) 07:00: 06:53 Push, [place] injection 00 :00 ONCE, 1 Medical 10 mg dose, On Branch Mon01/24/23 at 0200, GIGI NaCl 0.9% 2022- No 1000mL at 999 Uni vers (NS) bolus 01-24 mL/hr, ity of infusion 05:30: 06:54 1,000 mL, [place] 1,000 mL 00 :00 IV Medical Infusion, Branch ONCE, 1 dose, On Mon01/24/23 at 0030, STAT acetaminoph 2022- No 1000mg 1,000 mg, Univers en 01-24 Oral, ity of (TYLENOL) 05:30: 04:27 ONCE, 1 [place] tablet 00 :00 dose, On Medical 1,000 mg Mon01/24/23 Branc h at 0030, Routine cyanocobala Yes Take by Uni vers min, 4-27 mouth. ity of vitamin 09:49: [place] [facility] (VITAMIN Branch B12 ORAL) cyanocobala 0 Yes Take by Uni vers min, 4-27 mouth. ity of vitamin 09:49: [place] [facility] (VITAMIN Branch B12 ORAL) cyanocobala 2022-0 Yes Take by Uni vers min, 4-27 mouth. ity of vitamin 09:49: [place] [facility] (VITAMIN Branch B12 ORAL) cyanocobala 2022-0 Yes Take by Uni vers min, 4-27 mouth. ity of vitamin 09:49: [place] [facility] (VITAMIN Branch B12 ORAL) cyanocobala 2022-0 Yes Take by Uni vers min, 4-27 mouth. ity of vitamin 09:49: [place] [facility] (VITAMIN Branch B12 ORAL) Cholecalcif 2023-0 Yes Take by Uni vers florentino, 4-27 mouth. ity of Vitamin D3, 09:48: [place] (VITAMIN 37 Medical D3) 50 mcg Branch (2,000 unit) capsule Cholecalcif 2023-0 Yes Take by Uni vers florentino, 4-27 mouth. ity of Vitamin D3, 09:48: [place] (VITAMIN 37 Medical D3) 50 mcg Branch (2,000 unit) capsule Cholecalcif 2023-0 Yes Take by Uni vers florentino, 4-27 mouth. ity of Vitamin D3, 09:48: [place] (VITAMIN 37 Medical D3) 50 mcg Branch (2,000 unit) capsule Cholecalcif 2023-0 Yes Take by Uni vers florentino, 4-27 mouth. ity of Vitamin D3, 09:48: [place] (VITAMIN 37 Medical D3) 50 mcg Branch (2,000 unit) capsule Cholecalcif 2023-0 Yes Take by Uni vers florentino, 4-27 mouth. ity of Vitamin D3, 09:48: [place] (VITAMIN 37 Medical D3) 50 mcg Branch (2,000 unit) capsule busPIRone 2023-0 Yes 15mg Take 1 Univer s 15 mg 4-27 tablet by ity of tablet 09:46: mouth in [address] Medical morning [place] and 1 tablet in the evening. busPIRone 2023-0 Yes 15mg Take 1 Univer s 15 mg 4-27 tablet by ity of tablet 09:46: mouth in [address] morning [place] and 1 tablet in the evening. busPIRone 2023-0 Yes 15mg Take 1 Univer s 15 mg 4-27 tablet by ity of tablet 09:46: mouth in [address] morning [place] and 1 tablet in the evening. busPIRone 2023-0 Yes 15mg Take 1 Univer s 15 mg 4-27 tablet by ity of tablet 09:46: mouth in [address] morning [place] and 1 tablet in the evening. busPIRone 2023-0 Yes 15mg Take 1 Univer s 15 mg 4-27 tablet by ity of tablet 09:46: mouth in [address] morning [place] and 1 tablet in the evening. digoxin 125 2023-0 Yes 125ug Take 1 Uni vers mcg (0.125 4-27 tablet by ity of mg) tablet 00:00: mouth in [facility] 00 the Medical morning. Branch apixaban 2023-0 Yes 5mg Take 1 Univers (ELIQUIS) 5 4-27 tablet by ity of mg tablet 00:00: [place] 00 the Medical morning Branch and 1 tablet in the evening. Indication s: Recurrent DVT carvediloL 2023-0 Yes [id number] 25mg Take 1 Univers 25 mg 4-27 tablet by ity of tablet 00:00: mouth in [place] 00 the Medical morning Branch and 1 tablet in the evening. Take with meals. digoxin 125 2023-0 Yes 125ug Take 1 Uni vers mcg (0.125 4-27 tablet by ity of mg) tablet 00:00: mouth in [place] 00 the Medical morning. Branch apixaban 2023-0 Yes 5mg Take 1 Univers (ELIQUIS) 5 4-27 tablet by ity of mg tablet 00:00: [place] 00 the Medical morning Branch and 1 tablet in the evening. Indication s: Recurrent DVT carvediloL 3-0 Yes [id number] 25mg Take 1 Univers 25 mg 4-27 tablet by ity of tablet 00:00: mouth in [place] 00 the Medical morning Branch and 1 tablet in the evening. Take with meals. digoxin 125 3-0 Yes 125ug Take 1 Uni vers mcg (0.125 4-27 tablet by ity of mg) tablet 00:00: mouth in [place] 00 the Medical morning. Branch apixaban 2023-0 Yes 5mg Take 1 Univers (ELIQUIS) 5 4-27 tablet by ity of mg tablet 00:00: mouth in [facility] 00 the Medical morning Branch and 1 tablet in the evening. Indication s: Recurrent DVT carvediloL 2023-0 Yes [id number] 25mg Take 1 Univers 25 mg 4-27 tablet by ity of tablet 00:00: mouth in [place] 00 the Medical morning Branch and 1 tablet in the evening. Take with meals. digoxin 125 2023-0 Yes 125ug Take 1 Uni vers mcg (0.125 4-27 tablet by ity of mg) tablet 00:00: mouth in [place] 00 the Medical morning. Branch apixaban 2023-0 Yes 5mg Take 1 Univers (ELIQUIS) 5 4-27 tablet by ity of mg tablet 00:00: [place] 00 the Medical morning Branch and 1 tablet in the evening. Indication s: Recurrent DVT carvediloL 0 Yes [id number] 25mg Take 1 Univers 25 mg 4-27 tablet by ity of tablet 00:00: mouth in [place] 00 the Medical morning Branch and 1 tablet in the evening. Take with meals. digoxin 125 0 Yes 125ug Take 1 Uni vers mcg (0.125 4-27 tablet by ity of mg) tablet 00:00: mouth in [facility] 00 the morning. Branch apixaban Yes 5mg Take 1 Univers (ELIQUIS) 5 4-27 tablet by ity of mg tablet 00:00: mouth in [facility] 00 the Medical morning Branch and 1 tablet in the evening. Indication s: Recurrent DVT carvediloL Yes [id number] 25mg Take 1 Univers 25 mg 4-27 tablet by ity of tablet 00:00: mouth in [place] 00 the morning Branch and 1 tablet in the evening. Take with meals. acetaminoph 2022- No 1{tbl} 1 tablet, Univers en-codeine 01-1119 Oral, ity of (TYLENOL 02:00: 02:04 ONCE, 1 [place] #3) 300-30 00 :00 dose, On Medic al mg tablet 1 Tue Branch tablet 01/10/23 at 2100, GIGI acetaminoph 2022- Yes [id number] 1{tbl} Take 1 U nivers en-codeine 01-10- tablet by ity of (TYLENOL-CO 00:00: 04:59 [place] DEINE #3) 00 :00 every 4 Medical 300-30 mg (four) Branch tablet hours as needed for Pain (scale 7-10) for up to 12 days. Indication s: acute pain acetaminoph 2022- Yes [id number] 1{tbl} Take 1 U nivers en-codeine 4-18 05-01 tablet by ity of (TYLENOL-CO 00:00: 04:59 [place] DEINE #3) 00 :00 every 4 Medical 300-30 mg (four) Branch tablet hours as needed for Pain (scale 7-10) for up to 12 days. Indication s: acute pain acetaminoph 2022- Yes [id number] 1{tbl} Take 1 U nivers en-codeine 4-18 05-01 tablet by ity of (TYLENOL-CO 00:00: 04:59 mouth [place] DEINE #3) 00 :00 every 4 Medical 300-30 mg (four) Branch tablet hours as needed for Pain (scale 7-10) for up to 12 days. Indication s: acute pain albuterol Yes [id number] 2{puff} Inhale 2 Univers 90 4-03 Puffs ity of mcg/actuati 00:00: every 6 [place] on inhaler 00 (six) Medical hours as Branch needed for Wheezing or Shortness of Breath. albuterol Yes [id number] 2{puff} Inhale 2 Univers 90 4-03 Puffs ity of mcg/actuati 00:00: every 6 [place] on inhaler 00 (six) Medical hours as Branch needed for Wheezing or Shortness of Breath. albuterol Yes [id number] 2{puff} Inhale 2 Univers 90 4-03 Puffs ity of mcg/actuati 00:00: every 6 [place] on inhaler 00 (six) Medical hours as Branch needed for Wheezing or Shortness of Breath. albuterol Yes [id number] 2{puff} Inhale 2 Univers 90 4-03 Puffs ity of mcg/actuati 00:00: every 6 [place] on inhaler 00 (six) Medical hours as Branch needed for Wheezing or Shortness of Breath. albuterol Yes [id number] 2{puff} Inhale 2 Univers 90 4-03 Puffs ity of mcg/actuati 00:00: every 6 [place] on inhaler 00 (six) Medical hours as Branch needed for Wheezing or Shortness of Breath. albuterol Yes [id number] 2{puff} Inhale 2 Univers 90 4-03 Puffs ity of mcg/actuati 00:00: every 6 [place] on inhaler 00 (six) Medical hours as Branch needed for Wheezing or Shortness of Breath. albuterol Yes [id number] 2{puff} Inhale 2 Univers 90 4-03 Puffs ity of mcg/actuati 00:00: every 6 [place] on inhaler 00 (six) Medical hours as Branch needed for Wheezing or Shortness of Breath. albuterol Yes [id number] 2{puff} Inhale 2 Univers 90 4-03 Puffs ity of mcg/actuati 00:00: every 6 [place] on inhaler 00 (six) Medical hours as Branch needed for Wheezing or Shortness of Breath. albuterol Yes [id number] 2{puff} Inhale 2 Univers 90 4-03 Puffs ity of mcg/actuati 00:00: every 6 [place] on inhaler 00 (six) Medical hours as Branch needed for Wheezing or Shortness of Breath. FENTanyl PF 2022- No 25ug 25 mcg, Un [place] (SUBLIMAZE 12-23 Slow IV ity o f (PF)) 09:15: 09:25 Push, [place] injection 00 :00 ONCE, 1 Medical 25 mcg dose, On Branch 12/23/22 at 0415, STAT ondansetron 2022- No 4mg 4 mg, Slow Univers (ZOFRAN 12-23 IV Push, ity of (PF)) 09:15: 09:25 ONCE, 1 [place] injection 4 00 :00 dose, On Medi blane mg Fri Branch 12/23/22 at 0415, GIGI albuterol Yes [id number] 2{puff} Inhale 2 Univers 90 3-31 Puffs ity of mcg/actuati 00:00: every 6 [place] on inhaler 00 (six) Medical hours as Branch needed for Wheezing or Shortness of Breath. albuterol 2022- No [id number] 2{puff} Inhale 2 Univers 90 3-31 04-03 Puffs ity of mcg/actuati 00:00: 00:00 every 6 [place] on inhaler 00 :00 (six) Medical hours as Branch needed for Wheezing or Shortness of Breath. ubrogepant Yes [id number] 100mg Take 1 Univers (UBRELVY) 3-22 tablet by ity o f 100 mg Tab 00:00: mouth as [place] 00 needed Medical (migraine) Branch . Take at onset of migraine, repeat x1 in 2h if headache remains ubrogepant Yes [id number] 100mg Take 1 Univers (UBRELVY) 3-22 tablet by ity o f 100 mg Tab 00:00: mouth as [place] 00 needed Medical (migraine) Branch . Take at onset of migraine, repeat x1 in 2h if headache remains ubrogepant 2023-0 Yes [id number] 100mg Take 1 Univers (UBRELVY) 3-22 tablet by ity o f 100 mg Tab 00:00: mouth as [place] 00 needed Medical (migraine) Branch . Take at onset of migraine, repeat x1 in 2h if headache remains ubrogepant 2023-0 Yes [id number] 100mg Take 1 Univers (UBRELVY) 3-22 tablet by ity o f 100 mg Tab 00:00: mouth as [place] 00 needed Medical (migraine) Branch . Take at onset of migraine, repeat x1 in 2h if headache remains ubrogepant 2023-0 Yes [id number] 100mg Take 1 Univers (UBRELVY) 3-22 tablet by ity o f 100 mg Tab 00:00: mouth as [place] 00 needed Medical (migraine) Branch . Take at onset of migraine, repeat x1 in 2h if headache remains ubrogepant 2023-0 Yes [id number] 100mg Take 1 Univers (UBRELVY) 3-22 tablet by ity o f 100 mg Tab 00:00: mouth as [place] 00 needed Medical (migraine) Branch . Take at onset of migraine, repeat x1 in 2h if headache remains ubrogepant 2023-0 Yes [id number] 100mg Take 1 Univers (UBRELVY) 3-22 tablet by ity o f 100 mg Tab 00:00: mouth as [place] 00 needed Medical (migraine) Branch . Take at onset of migraine, repeat x1 in 2h if headache remains ubrogepant 2023-0 Yes [id number] 100mg Take 1 Univers (UBRELVY) 3-22 tablet by ity o f 100 mg Tab 00:00: mouth as [place] 00 needed Medical (migraine) Branch . Take at onset of migraine, repeat x1 in 2h if headache remains ubrogepant 2023-0 Yes [id number] 100mg Take 1 Univers (UBRELVY) 3-22 tablet by ity o f 100 mg Tab 00:00: mouth as [place] 00 needed Medical (migraine) Branch . Take at onset of migraine, repeat x1 in 2h if headache remains ubrogepant 2023-0 Yes [id number] 100mg Take 1 Univers (UBRELVY) 3-22 tablet by ity o f 100 mg Tab 00:00: mouth as [place] 00 needed Medical (migraine) Branch . Take at onset of migraine, repeat x1 in 2h if headache remains ubrogepant 3-0 Yes [id number] 100mg Take 1 Univers (UBRELVY) 3-22 tablet by ity o f 100 mg Tab 00:00: mouth as [place] 00 needed Medical (migraine) Branch . Take at onset of migraine, repeat x1 in 2h if headache remains ubrogepant 3-0 Yes [id number] 100mg Take 1 Univers (UBRELVY) 3-22 tablet by ity o f 100 mg Tab 00:00: mouth as [place] 00 needed Medical (migraine) Branch . Take at onset of migraine, repeat x1 in 2h if headache remains ubrogepant 2022-0 Yes [id number] 100mg Take 1 Univers (UBRELVY) 3-22 tablet by ity o f 100 mg Tab 00:00: mouth as [place] 00 needed Medical (migraine) Branch . Take at onset of migraine, repeat x1 in 2h if headache remains ubrogepant 2022-0 Yes [id number] 100mg Take 1 Univers (UBRELVY) 3-22 tablet by ity o f 100 mg Tab 00:00: mouth as [place] 00 needed Medical (migraine) Branch . Take at onset of migraine, repeat x1 in 2h if headache remains ubrogepant 2022-0 Yes [id number] 100mg Take 1 Univers (UBRELVY) 3-22 tablet by ity o f 100 mg Tab 00:00: mouth as [place] 00 needed Medical (migraine) Branch . Take at onset of migraine, repeat x1 in 2h if headache remains ubrogepant 3-0 Yes [id number] 100mg Take 1 Univers (UBRELVY) 3-22 tablet by ity o f 100 mg Tab 00:00: mouth as [place] 00 needed Medical (migraine) Branch . Take at onset of migraine, repeat x1 in 2h if headache remains fluticasone 2022-0 Yes [id number] 1{puff} Inhale 1 Univers furoate-natan 3-21 Puff in ity o f anteroL 00:00: the [place] (BREO 00 morning. Medical ELLIPTA) Branch 200-25 mcg/dose DsDv tiotropium Yes [id number] 1{puff} Inhale 1 Univers bromide 3-21 Puff in ity of (SPIRIVA 00:00: the [place] RESPIMAT) 00 morning. Medica l 2.5 Branch mcg/actuati on Mist fluticasone Yes [id number] 2{spray Use 2 Univers propionate 3-21 } Sprays in ity of 50 00:00: each [place] mcg/actuati 00 nostril in Me dical on nasal the Branch spray morning. fluticasone Yes [id number] 1{puff} Inhale 1 Univers furoate-natan 3-21 Puff in ity o f anteroL 00:00: the [place] (BRE 00 morning. Medical ELLIPTA) Branch 200-25 mcg/dose DsDv tiotropium Yes [id number] 1{puff} Inhale 1 Univers bromide 3-21 Puff in ity of (SPIRIVA 00:00: the [place] RESPIMAT) 00 morning. Medica l 2.5 Branch mcg/actuati on Mist fluticasone Yes [id number] 2{spray Use 2 Univers propionate 3-21 } Sprays in ity of 50 00:00: each [place] mcg/actuati 00 nostril in Me dical on nasal the Branch spray morning. fluticasone Yes [id number] 1{puff} Inhale 1 Univers furoate-natan 3-21 Puff in ity o f anteroL 00:00: the [place] ( morning. Medical ELLIPTA) Branch 200-25 mcg/dose DsDv tiotropium Yes [id number] 1{puff} Inhale 1 Univers bromide 3-21 Puff in ity of (SPIRIVA 00:00: the [place] RESPIMAT) 00 morning. Medica l 2.5 Branch mcg/actuati on Mist fluticasone Yes [id number] 2{spray Use 2 Univers propionate 3-21 } Sprays in ity of 50 00:00: each [place] mcg/actuati 00 nostril in Me dical on nasal the Branch spray morning. fluticasone Yes [id number] 1{puff} Inhale 1 Univers furoate-natan 3-21 Puff in ity o f anteroL 00:00: the [place] (BRE 00 morning. Medical ELLIPTA) Branch 200-25 mcg/dose DsDv tiotropium 2022-0 Yes [id number] 1{puff} Inhale 1 Univers bromide 3-21 Puff in ity of (SPIRIVA 00:00: the [place] RESPIMAT) 00 morning. Medica l 2.5 Branch mcg/actuati on Mist fluticasone 2022-0 Yes [id number] 2{spray Use 2 Univers propionate 3-21 } Sprays in ity of 50 00:00: each [place] mcg/actuati 00 nostril in Me dical on nasal the Branch spray morning. fluticasone 2022-0 Yes [id number] 1{puff} Inhale 1 Univers furoate-natan 3-21 Puff in ity o f anteroL 00:00: the [place] ( morning. Medical ELLIPTA) Branch 200-25 mcg/dose DsDv tiotropium 2022-0 Yes [id number] 1{puff} Inhale 1 Univers bromide 3-21 Puff in ity of (SPIRIVA 00:00: the [place] RESPIMAT) 00 morning. Medica l 2.5 Branch mcg/actuati on Mist fluticasone 2022-0 Yes [id number] 2{spray Use 2 Univers propionate 3-21 } Sprays in ity of 50 00:00: each [place] mcg/actuati 00 nostril in Me dical on nasal the Branch spray morning. fluticasone 2022-0 Yes [id number] 1{puff} Inhale 1 Univers furoate-natan 3-21 Puff in ity o f anteroL 00:00: the [place] (BREO 00 morning. Medical ELLIPTA) Branch 200-25 mcg/dose DsDv tiotropium 2022-0 Yes [id number] 1{puff} Inhale 1 Univers bromide 3-21 Puff in ity of (SPIRIVA 00:00: the [place] RESPIMAT) 00 morning. Medica l 2.5 Branch mcg/actuati on Mist fluticasone 3-0 Yes [id number] 2{spray Use 2 Univers propionate 3-21 } Sprays in ity of 50 00:00: each [place] mcg/actuati 00 nostril in Me dical on nasal the Branch spray morning. fluticasone 2022-0 Yes [id number] 1{puff} Inhale 1 Univers furoate-natan 3-21 Puff in ity o f anteroL 00:00: the [place] (BRE morning. Medical ELLIPTA) Branch 200-25 mcg/dose DsDv tiotropium 2022-0 Yes [id number] 1{puff} Inhale 1 Univers bromide 3-21 Puff in ity of (SPIRIVA 00:00: the [place] RESPIMAT) 00 morning. Medica l 2.5 Branch mcg/actuati on Mist fluticasone 2022-0 Yes [id number] 2{spray Use 2 Univers propionate 3-21 } Sprays in ity of 50 00:00: each [place] mcg/actuati 00 nostril in Me dical on nasal the Branch spray morning. fluticasone 2022-0 Yes [id number] 1{puff} Inhale 1 Univers furoate-natan 3-21 Puff in ity o f anteroL 00:00: the [place] ( morning. Medical ELLIPTA) Branch 200-25 mcg/dose DsDv tiotropium 2022-0 Yes [id number] 1{puff} Inhale 1 Univers bromide 3-21 Puff in ity of (SPIRIVA 00:00: the [place] RESPIMAT) 00 morning. Medica l 2.5 Branch mcg/actuati on Mist fluticasone 2022-0 Yes [id number] 2{spray Use 2 Univers propionate 3-21 } Sprays in ity of 50 00:00: each [place] mcg/actuati 00 nostril in Me dical on nasal the Branch spray morning. fluticasone 2022-0 Yes [id number] 1{puff} Inhale 1 Univers furoate-natan 3-21 Puff in ity o f anteroL 00:00: the [place] (BREO morning. Medical ELLIPTA) Branch 200-25 mcg/dose DsDv tiotropium 2022-0 Yes [id number] 1{puff} Inhale 1 Univers bromide 3-21 Puff in ity of (SPIRIVA 00:00: the [place] RESPIMAT) 00 morning. Medica l 2.5 Branch mcg/actuati on Mist fluticasone 2022-0 Yes [id number] 2{spray Use 2 Univers propionate 3-21 } Sprays in ity of 50 00:00: each [place] mcg/actuati 00 nostril in Me dical on nasal the Branch spray morning. fluticasone Yes [id number] 1{puff} Inhale 1 Univers furoate-natan 3-21 Puff in ity o f anteroL 00:00: the [place] (BRE morning. Medical ELLIPTA) Branch 200-25 mcg/dose DsDv tiotropium Yes [id number] 1{puff} Inhale 1 Univers bromide 3-21 Puff in ity of (SPIRIVA 00:00: the [place] RESPIMAT) 00 morning. Medica l 2.5 Branch mcg/actuati on Mist fluticasone Yes [id number] 2{spray Use 2 Univers propionate 3-21 } Sprays in ity of 50 00:00: each [place] mcg/actuati 00 nostril in Me dical on nasal the Branch spray morning. fluticasone Yes [id number] 1{puff} Inhale 1 Univers furoate-natan 3-21 Puff in ity o f anteroL 00:00: the [place] ( morning. Medical ELLIPTA) Branch 200-25 mcg/dose DsDv tiotropium Yes [id number] 1{puff} Inhale 1 Univers bromide 3-21 Puff in ity of (SPIRIVA 00:00: the [place] RESPIMAT) 00 morning. Medica l 2.5 Branch mcg/actuati on Mist fluticasone Yes [id number] 2{spray Use 2 Univers propionate 3-21 } Sprays in ity of 50 00:00: each [place] mcg/actuati 00 nostril in Me dical on nasal the Branch spray morning. fluticasone 0 Yes [id number] 1{puff} Inhale 1 Univers furoate-natan 3-21 Puff in ity o f anteroL 00:00: the [place] (BREO morning. Medical ELLIPTA) Branch 200-25 mcg/dose DsDv tiotropium 0 Yes [id number] 1{puff} Inhale 1 Univers bromide 3-21 Puff in ity of (SPIRIVA 00:00: the [place] RESPIMAT) 00 morning. Medica l 2.5 Branch mcg/actuati on Mist fluticasone 2022-0 Yes [id number] 2{spray Use 2 Univers propionate 3-21 } Sprays in ity of 50 00:00: each [place] mcg/actuati 00 nostril in Me dical on nasal the Branch spray morning. fluticasone 2022-0 Yes [id number] 1{puff} Inhale 1 Univers furoate-natan 3-21 Puff in ity o f anteroL 00:00: the [place] ( morning. Medical ELLIPTA) Branch 200-25 mcg/dose DsDv tiotropium 2022-0 Yes [id number] 1{puff} Inhale 1 Univers bromide 3-21 Puff in ity of (SPIRIVA 00:00: the [place] RESPIMAT) 00 morning. Medica l 2.5 Branch mcg/actuati on Mist fluticasone 2022-0 Yes [id number] 2{spray Use 2 Univers propionate 3-21 } Sprays in ity of 50 00:00: each [place] mcg/actuati 00 nostril in Me dical on nasal the Branch spray morning. fluticasone 2022-0 Yes [id number] 1{puff} Inhale 1 Univers furoate-natan 3-21 Puff in ity o f anteroL 00:00: the [place] ( morning. Medical ELLIPTA) Branch 200-25 mcg/dose DsDv tiotropium 2022-0 Yes [id number] 1{puff} Inhale 1 Univers bromide 3-21 Puff in ity of (SPIRIVA 00:00: the [place] RESPIMAT) 00 morning. Medica l 2.5 Branch mcg/actuati on Mist fluticasone 2022-0 Yes [id number] 2{spray Use 2 Univers propionate 3-21 } Sprays in ity of 50 00:00: each [place] mcg/actuati 00 nostril in Me dical on nasal the Branch spray morning. fluticasone 2022-0 Yes [id number] 1{puff} Inhale 1 Univers furoate-natan 3-21 Puff in ity of anteroL 00:00: the [place] ( morning. Medical ELLIPTA) Branch 200-25 mcg/dose DsDv tiotropium Yes [id number] 1{puff} Inhale 1 Univers bromide 3-21 Puff in ity of (SPIRIVA 00:00: the [place] RESPIMAT) 00 morning. Medica l 2.5 Branch mcg/actuati on [facility] fluticasone Yes [id number] 2{spray Use 2 [facility] propionate 3-21 } Sprays in ity of 50 00:00: each [place] mcg/actuati 00 nostril in Me dical on nasal the Branch spray morning. fluticasone Yes [id number] 1{puff} Inhale 1 [facility] furoate-natan 3-21 Puff in ity o f anteroL 00:00: the [place] ( morning. Medical ELLIPTA) Branch 200-25 mcg/dose DsDv tiotropium Yes [id number] 1{puff} Inhale 1 [facility] bromide 3-21 Puff in ity of (SPIRIVA 00:00: the [place] RESPIMAT) 00 morning. Medica l 2.5 Branch mcg/actuati on [facility] fluticasone Yes [id number] 2{spray Use 2 [facility] propionate 3-21 } Sprays in ity of 50 00:00: each [place] mcg/actuati 00 nostril in Me dical on nasal the Branch spray morning. fluticasone Yes [id number] 1{puff} Inhale 1 [facility] furoate-natan 3-21 Puff in ity o f anteroL 00:00: the [place] (. Medical ELLIPTA) Branch 200-25 mcg/dose DsDv tiotropium Yes [id number] 1{puff} Inhale 1 [facility] bromide 3-21 Puff in ity of (SPIRIVA 00:00: the [place] RESPIMAT) 00 morning. Medica l 2.5 Branch mcg/actuati on [facility] fluticasone Yes [id number] 2{spray Use 2 [facility] propionate 3-21 } Sprays in ity of 50 00:00: each [place] mcg/actuati 00 nostril in Me dical on nasal the Branch spray morning. fluticasone Yes [id number] 1{puff} Inhale 1 [facility] furoate-natan 3-21 Puff in ity o f anteroL 00:00: the [place] (BREO 00 morning. Medical ELLIPTA) Branch 200-25 mcg/dose DsDv tiotropium Yes [id number] 1{puff} Inhale 1 [facility] bromide 3-21 Puff in ity of (SPIRIVA 00:00: the [place] RESPIMAT) 00 morning. Medica l 2.5 Branch mcg/actuati on [facility] fluticasone Yes [id number] 2{spray Use 2 [facility] propionate 3-21 } Sprays in ity of 50 00:00: each [place] mcg/actuati 00 nostril in Me dical on nasal the Branch spray morning. iopamidol 2022- No [id number] 70mL 70 mL, U nivers (ISOVUE 12-06 Intravenou ity o f 370-500 mL) 17:30: 16:51 s, ONCE, 1 [place] injection 00 :00 dose, On Medica l 70 mL Tue Branch 12/06/22 at 1230, Routine methylPREDN 2022- No 125mg 125 mg, U nivers ISolone sod 12-06 Intravenou i ty of succ 17:00: 17:00 s, ONCE, 1 [place] (SOLU-MEDRO 00 :00 dose, On Medi blane L (PF)) Tue Branch injection 12/06/22 at 125 mg 1200, GIGI acetaminoph 2022- Yes [id number] 1{tbl} [facility] en-codeine 12-02 ity of (TYLENOL 21:42: 21:41 [place] #3) 300-30 41 :41 Medical mg tablet 1 Branch tablet acetaminoph 2022- Yes [id number] 1{tbl} [facility] en-codeine 12-02 ity of (TYLENOL 21:42: 21:41 [place] #3) 300-30 41 :41 Medical mg tablet 1 Branch tablet acetaminoph 2022- Yes [id number] 1{tbl} [facility] en-codeine 12-02 ity of (TYLENOL 21:42: 21:41 [place] #3) 300-30 41 :41 Medical mg tablet 1 Branch tablet acetaminoph 3-0 2023- No [id number] 1{tbl} [facility] en-codeine 3-10 03-14 ity of (TYLENOL 21:42: 21:41 [place] #3) 300-30 41 :41 Medical mg tablet 1 Branch tablet predniSONE 2023-0 Yes [id number] Take on [facility] 50 mg 3-03 tablet 13 ity of tablet 00:00: hours [place] 00 prior to Medical the scan, Branch then take 1 tablet 7 hours prior to the scan, then take 1 tablet 1 hour prior to the scan. hydrOXYzine 2023-0 Yes [id number] Take one [facility] 50 mg 3-03 tablet 1 ity of tablet 00:00: hour prior [place] 00 to the Medical scan. Branch predniSONE 2023-0 Yes [id number] Take on [facility] 50 mg 3-03 tablet 13 ity of tablet 00:00: hours [place] 00 prior to Medical the scan, Branch then take 1 tablet 7 hours prior to the scan, then take 1 tablet 1 hour prior to the scan. hydrOXYzine 3-0 Yes [id number] Take one [facility] 50 mg 3-03 tablet 1 ity of tablet 00:00: hour prior [place] 00 to the Medical scan. Branch predniSONE 2023-0 Yes [id number] Take on [facility] 50 mg 3-03 tablet 13 ity of tablet 00:00: hours [place] 00 prior to Medical the scan, Branch then take 1 tablet 7 hours prior to the scan, then take 1 tablet 1 hour prior to the scan. hydrOXYzine 2023-0 Yes [id number] Take one [facility] 50 mg 3-03 tablet 1 ity of tablet 00:00: hour prior [place] 00 to the Medical scan. Branch predniSONE 2023-0 Yes [id number] Take on [facility] 50 mg 3-03 tablet 13 ity of tablet 00:00: hours [place] 00 prior to Medical the scan, Branch then take 1 tablet 7 hours prior to the scan, then take 1 tablet 1 hour prior to the scan. hydrOXYzine 2023-0 Yes [id number] Take one [facility] 50 mg 3-03 tablet 1 ity of tablet 00:00: hour prior [place] 00 to the Medical scan. Branch predniSONE 2023-0 Yes [id number] Take on [facility] 50 mg 3-03 tablet 13 ity of tablet 00:00: hours [place] 00 prior to Medical the scan, Branch then take 1 tablet 7 hours prior to the scan, then take 1 tablet 1 hour prior to the scan. hydrOXYzine 2023-0 Yes [id number] Take one [facility] 50 mg 3-03 tablet 1 ity of tablet 00:00: hour prior [place] 00 to the Medical scan. Branch predniSONE 2023-0 Yes [id number] Take on [facility] 50 mg 3-03 tablet 13 ity of tablet 00:00: hours [place] 00 prior to Medical the scan, Branch then take 1 tablet 7 hours prior to the scan, then take 1 tablet 1 hour prior to the scan. hydrOXYzine 2023-0 Yes [id number] Take one [facility] 50 mg 3-03 tablet 1 ity of tablet 00:00: hour prior [place] 00 to the Medical scan. Branch predniSONE 2023-0 Yes [id number] Take on [facility] 50 mg 3-03 tablet 13 ity of tablet 00:00: hours [place] 00 prior to Medical the scan, Branch then take 1 tablet 7 hours prior to the scan, then take 1 tablet 1 hour prior to the scan. hydrOXYzine 2023-0 Yes [id number] Take one [facility] 50 mg 3-03 tablet 1 ity of tablet 00:00: hour prior [place] 00 to the Medical scan. Branch predniSONE 2023-0 Yes [id number] Take on [facility] 50 mg 3-03 tablet 13 ity of tablet 00:00: hours [place] 00 prior to Medical the scan, Branch then take 1 tablet 7 hours prior to the scan, then take 1 tablet 1 hour prior to the scan. hydrOXYzine 2023-0 Yes [id number] Take one [facility] 50 mg 3-03 tablet 1 ity of tablet 00:00: hour prior [place] 00 to the Medical scan. Branch predniSONE 2023-0 Yes [id number] Take on [facility] 50 mg 3-03 tablet 13 ity of tablet 00:00: hours [place] 00 prior to Medical the scan, Branch then take 1 tablet 7 hours prior to the scan, then take 1 tablet 1 hour prior to the scan. hydrOXYzine 2023-0 Yes [id number] Take one [facility] 50 mg 3-03 tablet 1 ity of tablet 00:00: hour prior [place] 00 to the Medical scan. Branch predniSONE 2023-0 Yes [id number] Take on [facility] 50 mg 3-03 tablet 13 ity of tablet 00:00: hours [place] 00 prior to Medical the scan, Branch then take 1 tablet 7 hours prior to the scan, then take 1 tablet 1 hour prior to the scan. hydrOXYzine 2023-0 Yes [id number] Take one [facility] 50 mg 3-03 tablet 1 ity of tablet 00:00: hour prior [place] 00 to the Medical scan. Branch predniSONE 2023-0 Yes [id number] Take on [facility] 50 mg 3-03 tablet 13 ity of tablet 00:00: hours [place] 00 prior to Medical the scan, Branch then take 1 tablet 7 hours prior to the scan, then take 1 tablet 1 hour prior to the scan. hydrOXYzine 2023-0 Yes [id number] Take one [facility] 50 mg 3-03 tablet 1 ity of tablet 00:00: hour prior [place] 00 to the Medical scan. Branch predniSONE 2023-0 Yes [id number] Take on [facility] 50 mg 3-03 tablet 13 ity of tablet 00:00: hours [place] 00 prior to Medical the scan, Branch then take 1 tablet 7 hours prior to the scan, then take 1 tablet 1 hour prior to the scan. hydrOXYzine 2023-0 Yes [id number] Take one [facility] 50 mg 3-03 tablet 1 ity of tablet 00:00: hour prior [place] 00 to the Medical scan. Branch predniSONE 2023-0 Yes [id number] Take on [facility] 50 mg 3-03 tablet 13 ity of tablet 00:00: hours [place] 00 prior to Medical the scan, Branch then take 1 tablet 7 hours prior to the scan, then take 1 tablet 1 hour prior to the scan. hydrOXYzine 2023-0 Yes [id number] Take one [facility] 50 mg 3-03 tablet 1 ity of tablet 00:00: hour prior [place] 00 to the Medical scan. Branch predniSONE 2023-0 Yes [id number] Take on [facility] 50 mg 3-03 tablet 13 ity of tablet 00:00: hours [place] 00 prior to Medical the scan, Branch then take 1 tablet 7 hours prior to the scan, then take 1 tablet 1 hour prior to the scan. hydrOXYzine 2023-0 Yes [id number] Take one [facility] 50 mg 3-03 tablet 1 ity of tablet 00:00: hour prior [place] 00 to the Medical scan. Branch predniSONE 2023-0 Yes [id number] Take on [facility] 50 mg 3-03 tablet 13 ity of tablet 00:00: hours [place] 00 prior to Medical the scan, Branch then take 1 tablet 7 hours prior to the scan, then take 1 tablet 1 hour prior to the scan. hydrOXYzine 2023-0 Yes [id number] Take one [facility] 50 mg 3-03 tablet 1 ity of tablet 00:00: hour prior [place] 00 to the Medical scan. Branch predniSONE 2023-0 Yes [id number] Take on [facility] 50 mg 3-03 tablet 13 ity of tablet 00:00: hours [place] 00 prior to Medical the scan, Branch then take 1 tablet 7 hours prior to the scan, then take 1 tablet 1 hour prior to the scan. hydrOXYzine 2023-0 Yes [id number] Take one [facility] 50 mg 3-03 tablet 1 ity of tablet 00:00: hour prior [place] 00 to the Medical scan. Branch predniSONE 2023-0 Yes [id number] Take on [facility] 50 mg 3-03 tablet 13 ity of tablet 00:00: hours [place] 00 prior to Medical the scan, Branch then take 1 tablet 7 hours prior to the scan, then take 1 tablet 1 hour prior to the scan. hydrOXYzine 2023-0 Yes [id number] Take one [facility] 50 mg 3-03 tablet 1 ity of tablet 00:00: hour prior [place] 00 to the Medical scan. Branch predniSONE 2023-0 Yes [id number] Take on [facility] 50 mg 3-03 tablet 13 ity of tablet 00:00: hours [place] 00 prior to Medical the scan, Branch then take 1 tablet 7 hours prior to the scan, then take 1 tablet 1 hour prior to the scan. hydrOXYzine 2023-0 Yes [id number] Take one [facility] 50 mg 3-03 tablet 1 ity of tablet 00:00: hour prior [place] 00 to the Medical scan. Branch predniSONE 2023-0 Yes [id number] Take on [facility] 50 mg 3-03 tablet 13 ity of tablet 00:00: hours [place] 00 prior to Medical the scan, Branch then take 1 tablet 7 hours prior to the scan, then take 1 tablet 1 hour prior to the scan. hydrOXYzine 2023-0 Yes [id number] Take one [facility] 50 mg 3-03 tablet 1 ity of tablet 00:00: hour prior [place] 00 to the Medical scan. Branch predniSONE 2023-0 Yes [id number] Take on [facility] 50 mg 3-03 tablet 13 ity of tablet 00:00: hours [place] 00 prior to Medical the scan, Branch then take 1 tablet 7 hours prior to the scan, then take 1 tablet 1 hour prior to the scan. hydrOXYzine 2023-0 Yes [id number] Take one [facility] 50 mg 3-03 tablet 1 ity of tablet 00:00: hour prior [place] 00 to the Medical scan. Branch predniSONE 2023-0 Yes [id number] Take on [facility] 50 mg 3-03 tablet 13 ity of tablet 00:00: hours [place] 00 prior to Medical the scan, Branch then take 1 tablet 7 hours prior to the scan, then take 1 tablet 1 hour prior to the scan. hydrOXYzine 2023-0 Yes [id number] Take one [facility] 50 mg 3-03 tablet 1 ity of tablet 00:00: hour prior [place] 00 to the Medical scan. Branch predniSONE 2023-0 Yes [id number] Take on [facility] 50 mg 3-03 tablet 13 ity of tablet 00:00: hours [place] 00 prior to Medical the scan, Branch then take 1 tablet 7 hours prior to the scan, then take 1 tablet 1 hour prior to the scan. hydrOXYzine 2023-0 Yes [id number] Take one [facility] 50 mg 3-03 tablet 1 ity of tablet 00:00: hour prior [place] 00 to the Medical scan. Branch predniSONE 2023-0 Yes [id number] Take on [facility] 50 mg 3-03 tablet 13 ity of tablet 00:00: hours [place] 00 prior to Medical the scan, Branch then take 1 tablet 7 hours prior to the scan, then take 1 tablet 1 hour prior to the scan. hydrOXYzine 2023-0 Yes [id number] Take one [facility] 50 mg 3-03 tablet 1 ity of tablet 00:00: hour prior [place] 00 to the Medical scan. Branch predniSONE 2023-0 Yes [id number] Take on [facility] 50 mg 3-03 tablet 13 ity of tablet 00:00: hours [place] 00 prior to Medical the scan, Branch then take 1 tablet 7 hours prior to the scan, then take 1 tablet 1 hour prior to the scan. hydrOXYzine 2023-0 Yes [id number] Take one [facility] 50 mg 3-03 tablet 1 ity of tablet 00:00: hour prior [place] 00 to the Medical scan. Branch predniSONE 2023-0 Yes [id number] Take on [facility] 50 mg 3-03 tablet 13 ity of tablet 00:00: hours [place] 00 prior to Medical the scan, Branch then take 1 tablet 7 hours prior to the scan, then take 1 tablet 1 hour prior to the scan. hydrOXYzine 2023-0 Yes [id number] Take one [facility] 50 mg 3-03 tablet 1 ity of tablet 00:00: hour prior [place] 00 to the Medical scan. Branch predniSONE 2023-0 Yes [id number] Take on [facility] 50 mg 3-03 tablet 13 ity of tablet 00:00: hours [place] 00 prior to Medical the scan, Branch then take 1 tablet 7 hours prior to the scan, then take 1 tablet 1 hour prior to the scan. hydrOXYzine 2023-0 Yes [id number] Take one [facility] 50 mg 3-03 tablet 1 ity of tablet 00:00: hour prior [place] 00 to the Medical scan. Branch predniSONE 2023-0 Yes [id number] Take on [facility] 50 mg 3-03 tablet 13 ity of tablet 00:00: hours [place] 00 prior to Medical the scan, Branch then take 1 tablet 7 hours prior to the scan, then take 1 tablet 1 hour prior to the scan. hydrOXYzine 2023-0 Yes [id number] Take one [facility] 50 mg 3-03 tablet 1 ity of tablet 00:00: hour prior [place] 00 to the Medical scan. Branch predniSONE 2023-0 Yes [id number] Take on [facility] 50 mg 3-03 tablet 13 ity of tablet 00:00: hours [place] 00 prior to Medical the scan, Branch then take 1 tablet 7 hours prior to the scan, then take 1 tablet 1 hour prior to the scan. hydrOXYzine 2023-0 Yes [id number] Take one [facility] 50 mg 3-03 tablet 1 ity of tablet 00:00: hour prior [place] 00 to the Medical scan. [place] acetaminoph 2022-0 2022- No 1{tbl} 1 tablet, [facility] en-codeine 11-23 Oral, ity of (TYLENOL 10:30: 10:44 ONCE, 1 [place] #3) 300-30 00 :00 dose, On Medic al mg tablet 1 Mon11/23/22 Br anch tablet at 0430, GIGI acetaminoph 2022-0 2022- Yes [id number] 1{tbl} Take 1 [facility] en-codeine 11-23-14 tablet by ity of (TYLENOL-CO 00:00: 04:59 [place] #3) 00 :00 every 4 Medical 300-30 mg (four) Branch tablet hours as needed for Pain (scale 7-10) for up to 12 days. Indication s: acute pain acetaminoph 2022- Yes [id number] 1{tbl} Take 1 [facility] en-codeine 11-2314 tablet by ity of (TYLENOL-CO 00:00: 04:59 mouth [place] #3) 00 :00 every 4 Medical 300-30 mg (four) Branch tablet hours as needed for Pain (scale 7-10) for up to 12 days. Indication s: acute pain acetaminoph 2022- Yes [id number] 1{tbl} Take 1 [facility] en-codeine 11-23 tablet by ity of (TYLENOL-CO 00:00: 04:59 mouth [place] #3) 00 :00 every 4 Medical 300-30 mg (four) Branch tablet hours as needed for Pain (scale 7-10) for up to 12 days. Indication s: acute pain acetaminoph 2022- Yes 4647 1{tbl} Take 1 [facility] en-codeine 11-23 tablet by ity of (TYLENOL-CO 00:00: 04:59 mouth [place] #3) 00 :00 every 4 Medical 300-30 mg (four) Branch tablet hours as needed for Pain (scale 7-10) for up to 12 days. Indication s: acute pain acetaminoph 2022- Yes [id number] 1{tbl} Take 1 [facility] n[facility] en-codeine 11-23 tablet by ity of (TYLENOL-CO 00:00: 04:59 mouth [place] #3) 00 :00 every 4 Medical 300-30 mg (four) Branch tablet hours as needed for Pain (scale 7-10) for up to 12 days. Indication s: acute pain acetaminoph 2022- Yes 4647 1{tbl} Take 1 [facility] en-codeine -14 tablet by ity of (TYLENOL-CO 00:00: 04:59 mouth [place] #3) 00 :00 every 4 Medical 300-30 mg (four) Branch tablet hours as needed for Pain (scale 7-10) for up to 12 days. Indication s: acute pain acetaminoph 2022- Yes 4647 1{tbl} Take 1 U n[facility] en-codeine 11-23 tablet by ity of (TYLENOL-CO 00:00: 04:59 mouth [place] #3) 00 :00 every 4 Medical 300-30 mg (four) Branch tablet hours as needed for Pain (scale 7-10) for up to 12 days. Indication s: acute pain acetaminoph 2022- Yes 4647 1{tbl} Take 1 [facility] n[facility] en-codeine 11-23 tablet by ity of (TYLENOL-CO 00:00: 04:59 mouth [place] #3) 00 :00 every 4 Medical 300-30 mg (four) Branch tablet hours as needed for Pain (scale 7-10) for up to 12 days. Indication s: acute pain acetaminoph 2022- No 4647 1{tbl} Take 1 [facility] n[facility] en-codeine 11-23 tablet by ity of (TYLENOL-CO 00:00: 04:59 mouth [place] #3) 00 :00 every 4 Medical 300-30 mg (four) Branch tablet hours as needed for Pain (scale 7-10) for up to 12 days. Indication s: acute pain ALPRAZolam Yes [id number] .25mg Take 0.25 [facility] 0.25 mg 2-24 mg by ity of tablet 16:40: mouth at [place] 08 bedtime as Medical needed. Branch pregabalin 0 Yes 50mg Take 50 mg U nivers 50 mg 2-24 by mouth ity of capsule 16:40: at [place] 08 bedtime. Medical Branch rosuvastati 0 Yes 40mg Take 40 mg [facility] n (CRESTOR) 2-24 by mouth ity of 40 mg 16:40: at [place] [facility] 08 bedtime. Medical Branch ALPRAZolam 0 Yes [id number] .25mg Take 0.25 [facility] 0.25 mg 2-24 mg by ity of tablet 16:40: mouth at [place] 08 bedtime as Medical needed. Branch pregabalin 0 Yes 50mg Take 50 mg U nivers 50 mg 2-24 by mouth ity of capsule 16:40: at [place] 08 bedtime. Medical Branch rosuvastati 2022-0 Yes 40mg Take 40 mg [facility] n (CRESTOR) 2-24 by mouth ity of 40 mg 16:40: at [place] tablet 08 bedtime. Medical Branch ALPRAZolam 2022-0 Yes [id number] .25mg Take 0.25 [facility] 0.25 mg 2-24 mg by ity of tablet 16:40: mouth at [place] 08 bedtime as Medical needed. Branch pregabalin 2022-0 Yes 50mg Take 50 mg U nivers 50 mg 2-24 by mouth ity of capsule 16:40: at [place] 08 bedtime. Medical Branch rosuvastati 2022-0 Yes 40mg Take 40 mg [facility] n (CRESTOR) 2-24 by mouth ity of 40 mg 16:40: at [place] tablet 08 bedtime. Medical Branch ALPRAZolam 2022-0 Yes [id number] .25mg Take 0.25 [facility] 0.25 mg 2-24 mg by ity of tablet 16:40: mouth at [place] 08 bedtime as Medical needed. Branch pregabalin 2022-0 Yes 50mg Take 50 mg U nivers 50 mg 2-24 by mouth ity of capsule 16:40: at [place] 08 bedtime. Medical Branch rosuvastati 2022-0 Yes 40mg Take 40 mg [facility] n (CRESTOR) 2-24 by mouth ity of 40 mg 16:40: at [place] tablet 08 bedtime. Medical Branch ALPRAZolam 2022-0 Yes [id number] .25mg Take 0.25 [facility] 0.25 mg 2-24 mg by ity of tablet 16:40: mouth at [place] 08 bedtime as Medical needed. Branch pregabalin 2022-0 Yes 50mg Take 50 mg U nivers 50 mg 2-24 by mouth ity of capsule 16:40: at [place] 08 bedtime. Medical Branch rosuvastati 2022-0 Yes 40mg Take 40 mg [facility] n (CRESTOR) 2-24 by mouth ity of 40 mg 16:40: at [place] tablet 08 bedtime. Medical Branch ALPRAZolam 2022-0 Yes [id number] .25mg Take 0.25 [facility] 0.25 mg 2-24 mg by ity of tablet 16:40: mouth at [place] 08 bedtime as Medical needed. Branch pregabalin 2022-0 Yes 50mg Take 50 mg U nivers 50 mg 2-24 by mouth ity of capsule 16:40: at [place] 08 bedtime. Medical Branch rosuvastati 2022-0 Yes 40mg Take 40 mg [facility] n (CRESTOR) 2-24 by mouth ity of 40 mg 16:40: at [place] tablet 08 bedtime. Medical Branch ALPRAZolam 2022-0 Yes [id number] .25mg Take 0.25 [facility] 0.25 mg 2-24 mg by ity of tablet 16:40: mouth at [place] 08 bedtime as Medical needed. Branch pregabalin 2022-0 Yes 50mg Take 50 mg U nivers 50 mg 2-24 by mouth ity of capsule 16:40: at [place] 08 bedtime. Medical Branch rosuvastati 2022-0 Yes 40mg Take 40 mg [facility] n (CRESTOR) 2-24 by mouth ity of 40 mg 16:40: at [place] [facility] 08 bedtime. Medical Branch ALPRAZolam 2022-0 Yes [id number] .25mg Take 0.25 [facility] 0.25 mg 2-24 mg by ity of tablet 16:40: mouth at [place] 08 bedtime as Medical needed. Branch pregabalin 2022-0 Yes 50mg Take 50 mg U nivers 50 mg 2-24 by mouth ity of capsule 16:40: at [place] 08 bedtime. Medical Branch rosuvastati 2022-0 Yes 40mg Take 40 mg [facility] n (CRESTOR) 2-24 by mouth ity of 40 mg 16:40: at [place] [facility] 08 bedtime. Medical Branch ALPRAZolam 2022-0 Yes [id number] .25mg Take 0.25 [facility] 0.25 mg 2-24 mg by ity of tablet 16:40: mouth at [place] 08 bedtime as Medical needed. Branch pregabalin 2022-0 Yes 50mg Take 50 mg U nivers 50 mg 2-24 by mouth ity of capsule 16:40: at [place] 08 bedtime. Medical Branch rosuvastati 2022-0 Yes 40mg Take 40 mg [facility] n (CRESTOR) 2-24 by mouth ity of 40 mg 16:40: at [place] [facility] 08 bedtime. Medical Branch ALPRAZolam 2022-0 Yes [id number] .25mg Take 0.25 [facility] 0.25 mg 2-24 mg by ity of tablet 16:40: mouth at [place] 08 bedtime as Medical needed. Branch pregabalin 2022-0 Yes 50mg Take 50 mg U nivers 50 mg 2-24 by mouth ity of capsule 16:40: at [place] 08 bedtime. Medical Branch rosuvastati 2022-0 Yes 40mg Take 40 mg [facility] n (CRESTOR) 2-24 by mouth ity of 40 mg 16:40: at [place] tablet 08 bedtime. Medical Branch ALPRAZolam 2022-0 Yes [id number] .25mg Take 0.25 [facility] 0.25 mg 2-24 mg by ity of tablet 16:40: mouth at [place] 08 bedtime as Medical needed. Branch pregabalin 2022-0 Yes 50mg Take 50 mg U nivers 50 mg 2-24 by mouth ity of capsule 16:40: at [place] 08 bedtime. Medical Branch rosuvastati 2022-0 Yes 40mg Take 40 mg [facility] n (CRESTOR) 2-24 by mouth ity of 40 mg 16:40: at [place] tablet 08 bedtime. Medical Branch ALPRAZolam 2022-0 Yes [id number] .25mg Take 0.25 [facility] 0.25 mg 2-24 mg by ity of tablet 16:40: mouth at [place] 08 bedtime as Medical needed. Branch pregabalin 2022-0 Yes 50mg Take 50 mg U nivers 50 mg 2-24 by mouth ity of capsule 16:40: at [place] 08 bedtime. Medical Branch rosuvastati 2022-0 Yes 40mg Take 40 mg [facility] n (CRESTOR) 2-24 by mouth ity of 40 mg 16:40: at [place] tablet 08 bedtime. Medical Branch ALPRAZolam 2022-0 Yes [id number] .25mg Take 0.25 [facility] 0.25 mg 2-24 mg by ity of tablet 16:40: mouth at [place] 08 bedtime as Medical needed. Branch pregabalin 2022-0 Yes 50mg Take 50 mg U nivers 50 mg 2-24 by mouth ity of capsule 16:40: at [place] 08 bedtime. Medical Branch rosuvastati 2022-0 Yes 40mg Take 40 mg [facility] n (CRESTOR) 2-24 by mouth ity of 40 mg 16:40: at [place] tablet 08 bedtime. Medical Branch ALPRAZolam 2022-0 Yes [id number] .25mg Take 0.25 [facility] 0.25 mg 2-24 mg by ity of tablet 16:40: mouth at [place] 08 bedtime as Medical needed. Branch pregabalin 2022-0 Yes 50mg Take 50 mg U nivers 50 mg 2-24 by mouth ity of capsule 16:40: at [place] 08 bedtime. Medical Branch rosuvastati 2022-0 Yes 40mg Take 40 mg [facility] n (CRESTOR) 2-24 by mouth ity of 40 mg 16:40: at [place] tablet 08 bedtime. Medical Branch ALPRAZolam 2022-0 Yes [id number] .25mg Take 0.25 [facility] 0.25 mg 2-24 mg by ity of tablet 16:40: mouth at [place] 08 bedtime as Medical needed. Branch pregabalin 2022-0 Yes 50mg Take 50 mg U nivers 50 mg 2-24 by mouth ity of capsule 16:40: at [place] 08 bedtime. Medical Branch rosuvastati 2022-0 Yes 40mg Take 40 mg [facility] n (CRESTOR) 2-24 by mouth ity of 40 mg 16:40: at [place] tablet 08 bedtime. Medical Branch ALPRAZolam 2022-0 Yes [id number] .25mg Take 0.25 [facility] 0.25 mg 2-24 mg by ity of tablet 16:40: mouth at [place] 08 bedtime as Medical needed. Branch pregabalin 2022-0 Yes 50mg Take 50 mg U nivers 50 mg 2-24 by mouth ity of capsule 16:40: at [place] 08 bedtime. Medical Branch rosuvastati 2022-0 Yes 40mg Take 40 mg [facility] n (CRESTOR) 2-24 by mouth ity of 40 mg 16:40: at [place] tablet 08 bedtime. Medical Branch ALPRAZolam 2022-0 Yes [id number] .25mg Take 0.25 [facility] 0.25 mg 2-24 mg by ity of tablet 16:40: mouth at [place] 08 bedtime as Medical needed. Branch pregabalin 2022-0 Yes 50mg Take 50 mg U nivers 50 mg 2-24 by mouth ity of capsule 16:40: at [place] 08 bedtime. Medical Branch rosuvastati 2022-0 Yes 40mg Take 40 mg [facility] n (CRESTOR) 2-24 by mouth ity of 40 mg 16:40: at [place] tablet 08 bedtime. Medical Branch ALPRAZolam 0 Yes [id number] .25mg Take 0.25 [facility] 0.25 mg 2-24 mg by ity of tablet 16:40: mouth at [place] 08 bedtime as Medical needed. Branch pregabalin 0 Yes 50mg Take 50 mg U nivers 50 mg 2-24 by mouth ity of capsule 16:40: at [place] 08 bedtime. Medical Branch rosuvastati 0 Yes 40mg Take 40 mg [facility] n (CRESTOR) 2-24 by mouth ity of 40 mg 16:40: at [place] tablet 08 bedtime. Medical Branch ALPRAZolam Yes [id number] .25mg Take 0.25 [facility] 0.25 mg 2-24 mg by ity of tablet 16:40: mouth at [place] 08 bedtime as Medical needed. Branch pregabalin 0 Yes 50mg Take 50 mg U nivers 50 mg 2-24 by mouth ity of capsule 16:40: at [place] 08 bedtime. Medical Branch rosuvastati 0 Yes 40mg Take 40 mg [facility] n (CRESTOR) 2-24 by mouth ity of 40 mg 16:40: at [place] tablet 08 bedtime. Medical Branch ALPRAZolam 0 Yes [id number] .25mg Take 0.25 [facility] 0.25 mg 2-24 mg by ity of tablet 16:40: mouth at [place] 08 bedtime as Medical needed. Branch pregabalin 0 Yes 50mg Take 50 mg U nivers 50 mg 2-24 by mouth ity of capsule 16:40: at [place] 08 bedtime. Medical Branch rosuvastati 0 Yes 40mg Take 40 mg [facility] n (CRESTOR) 2-24 by mouth ity of 40 mg 16:40: at [place] tablet 08 bedtime. Medical Branch ALPRAZolam 0 Yes [id number] .25mg Take 0.25 [facility] 0.25 mg 2-24 mg by ity of tablet 16:40: mouth at [place] 08 bedtime as Medical needed. Branch pregabalin 2022-0 Yes 50mg Take 50 mg U nivers 50 mg 2-24 by mouth ity of capsule 16:40: at [place] 08 bedtime. Medical Branch rosuvastati 2022-0 Yes 40mg Take 40 mg Univers n (CRESTOR) 2-24 by mouth ity of 40 mg 16:40: at [place] tablet 08 bedtime. Medical Branch ALPRAZolam 2022-0 Yes [id number] .25mg Take 0.25 Univers 0.25 mg 2-24 mg by ity of tablet 16:40: mouth at [place] 08 bedtime as Medical needed. Branch pregabalin 0 Yes 50mg Take 50 mg U nivers 50 mg 2-24 by mouth ity of capsule 16:40: at [place] 08 bedtime. Medical Branch rosuvastati 0 Yes 40mg Take 40 mg Univers n (CRESTOR) 2-24 by mouth ity of 40 mg 16:40: at [place] tablet 08 bedtime. Medical Branch ALPRAZolam 0 Yes [id number] .25mg Take 0.25 Univers 0.25 mg 2-24 mg by ity of tablet 16:40: mouth at [place] 08 bedtime as Medical needed. Branch pregabalin 2022-0 Yes 50mg Take 50 mg U nivers 50 mg 2-24 by mouth ity of capsule 16:40: at [place] 08 bedtime. Medical Branch rosuvastati 0 Yes 40mg Take 40 mg Univers n (CRESTOR) 2-24 by mouth ity of 40 mg 16:40: at [place] tablet 08 bedtime. Medical Branch ALPRAZolam 2022-0 Yes [id number] .25mg Take 0.25 Univers 0.25 mg 2-24 mg by ity of tablet 16:40: mouth at [place] 08 bedtime as Medical needed. Branch pregabalin 2022-0 Yes 50mg Take 50 mg U nivers 50 mg 2-24 by mouth ity of capsule 16:40: at [place] 08 bedtime. Medical Branch rosuvastati 2022-0 Yes 40mg Take 40 mg Univers n (CRESTOR) 2-24 by mouth ity of 40 mg 16:40: at [place] tablet 08 bedtime. Medical Branch ALPRAZolam 2022-0 Yes [id number] .25mg Take 0.25 Univers 0.25 mg 2-24 mg by ity of tablet 16:40: mouth at [place] 08 bedtime as Medical needed. Branch pregabalin 0 Yes 50mg Take 50 mg U nivers 50 mg 2-24 by mouth ity of capsule 16:40: at [place] 08 bedtime. Medical Branch rosuvastati 2022-0 Yes 40mg Take 40 mg Univers n (CRESTOR) 2-24 by mouth ity of 40 mg 16:40: at [place] tablet 08 bedtime. Medical Branch ALPRAZolam 2022-0 Yes [id number] .25mg Take 0.25 Univers 0.25 mg 2-24 mg by ity of tablet 16:40: mouth at [place] 08 bedtime as Medical needed. Branch pregabalin 2022-0 Yes 50mg Take 50 mg U nivers 50 mg 2-24 by mouth ity of capsule 16:40: at [place] 08 bedtime. Medical Branch rosuvastati 2022-0 Yes 40mg Take 40 mg [facility] n (CRESTOR) 2-24 by mouth ity of 40 mg 16:40: at [place] tablet 08 bedtime. Medical Branch ALPRAZolam 2022-0 Yes [id number] .25mg Take 0.25 Univers 0.25 mg 2-24 mg by ity of tablet 16:40: mouth at [place] 08 bedtime as Medical needed. Branch pregabalin 2022-0 Yes 50mg Take 50 mg U nivers 50 mg 2-24 by mouth ity of capsule 16:40: at [place] 08 bedtime. Medical Branch rosuvastati 2022-0 Yes 40mg Take 40 mg [facility] n (CRESTOR) 2-24 by mouth ity of 40 mg 16:40: at [place] tablet 08 bedtime. Medical Branch ALPRAZolam 2022-0 Yes [id number] .25mg Take 0.25 Univers 0.25 mg 2-24 mg by ity of tablet 16:40: mouth at [place] 08 bedtime as Medical needed. Branch pregabalin 2022-0 Yes 50mg Take 50 mg U nivers 50 mg 2-24 by mouth ity of capsule 16:40: at [place] 08 bedtime. Medical Branch rosuvastati 2022-0 Yes 40mg Take 40 mg [facility] n (CRESTOR) 2-24 by mouth ity of 40 mg 16:40: at [place] tablet 08 bedtime. Medical Branch ALPRAZolam 2022-0 Yes [id number] .25mg Take 0.25 Univers 0.25 mg 2-24 mg by ity of tablet 16:40: mouth at [place] 08 bedtime as Medical needed. Branch pregabalin 2022-0 Yes 50mg Take 50 mg U nivers 50 mg 2-24 by mouth ity of capsule 16:40: at [place] 08 bedtime. Medical Branch rosuvastati 2022-0 Yes 40mg Take 40 mg [facility] n (CRESTOR) 2-24 by mouth ity of 40 mg 16:40: at [place] tablet 08 bedtime. Medical Branch ALPRAZolam 2022-0 Yes [id number] .25mg Take 0.25 Univers 0.25 mg 2-24 mg by ity of tablet 16:40: mouth at [place] 08 bedtime as Medical needed. Branch pregabalin 2022-0 Yes 50mg Take 50 mg U nivers 50 mg 2-24 by mouth ity of capsule 16:40: at [place] 08 bedtime. Medical Branch rosuvastati 2022-0 Yes 40mg Take 40 mg [facility] n (CRESTOR) 2-24 by mouth ity of 40 mg 16:40: at [place] tablet 08 bedtime. Medical Branch ALPRAZolam 2022-0 Yes [id number] .25mg Take 0.25 Univers 0.25 mg 2-24 mg by ity of tablet 16:40: mouth at [place] 08 bedtime as Medical needed. Branch pregabalin 2022-0 Yes 50mg Take 50 mg U nivers 50 mg 2-24 by mouth ity of capsule 16:40: at [place] 08 bedtime. Medical Branch rosuvastati 2022-0 Yes 40mg Take 40 mg [facility] n (CRESTOR) 2-24 by mouth ity of 40 mg 16:40: at [place] tablet 08 bedtime. Medical Branch ALPRAZolam 2022-0 Yes [id number] .25mg Take 0.25 Univers 0.25 mg 2-24 mg by ity of tablet 16:40: mouth at [place] 08 bedtime as Medical needed. Branch pregabalin 2022-0 Yes 50mg Take 50 mg U nivers 50 mg 2-24 by mouth ity of capsule 16:40: at [place] 08 bedtime. Medical Branch rosuvastati 2022-0 Yes 40mg Take 40 mg Univers n (CRESTOR) 2-24 by mouth ity of 40 mg 16:40: at [place] tablet 08 bedtime. Medical Branch ALPRAZolam Yes [id number] .25mg Take 0.25 Univers 0.25 mg 2-24 mg by ity of tablet 16:40: mouth at [place] 08 bedtime as Medical needed. Branch pregabalin Yes 50mg Take 50 mg U nivers 50 mg 2-24 by mouth ity of capsule 16:40: at [place] 08 bedtime. Medical Branch rosuvastati Yes 40mg Take 40 mg Univers n (CRESTOR) 2-24 by mouth ity of 40 mg 16:40: at [place] tablet 08 bedtime. Medical Branch ALPRAZolam Yes [id number] .25mg Take 0.25 Univers 0.25 mg 2-24 mg by ity of tablet 16:40: mouth at [place] 08 bedtime as Medical needed. Branch pregabalin Yes 50mg Take 50 mg U nivers 50 mg 2-24 by mouth ity of capsule 16:40: at [place] 08 bedtime. Medical Branch rosuvastati Yes 40mg Take 40 mg Univers n (CRESTOR) 2-24 by mouth ity of 40 mg 16:40: at [place] tablet 08 bedtime. Medical Branch tiotropium Yes [id number] 18ug 18 mcg, Univers (SPIRIVA) 2-24 Inhalation ity of inhalation 15:00: , DAILY, [place] 18 mcg 00 First dose Medical on Mon [place] 11/18/22 at 0900, Until Discontinu ed furosemide Yes [id number] 20mg 20 mg, Univers (LASIX) 2-24 Oral, ity of tablet 20 15:00: DAILY, [place] mg 00 First dose Medical on Mon [place] 11/18/22 at 0900, Until Discontinu ed, Routine DULoxetine Yes [id number] 30mg 30 mg, Univers (CYMBALTA) 2-24 Oral, ity of capsule 30 15:00: DAILY, [place] mg 00 First dose Medical on Mon [place] 11/18/22 at 0900, Until Discontinu ed, Routine digoxin Yes [id number] 125ug 125 mcg, Univers (LANOXIN) 2-24 Oral, ity of tablet 125 15:00: DAILY, [place] mcg 00 First dose Medical on Mon [place] 11/18/22 at 0900, Until Discontinu ed, Routine tiotropium 2022- No [id number] 18ug 18 mcg, Univers (SPIRIVA) 11-18 Inhalation ity of inhalation 15:00: 00:40 , DAILY, [place] 18 mcg 00 :10 First dose Medical on Mon [place] 11/18/22 at 0900, Until Discontinu ed furosemide 2022- No [id number] 20mg 20 mg, Univers (LASIX) 11-18 Oral, ity of tablet 20 15:00: 00:40 DAILY, [place] mg 00 :10 First dose Medical on Mon Branch 11/18/22 at 0900, Until Discontinu ed, Routine DULoxetine 2022- No [id number] 30mg 30 mg, Univers (CYMBALTA) 11-18 Oral, ity of capsule 30 15:00: 00:40 DAILY, [place] mg 00 :10 First dose Medical on Mon Branch 11/18/22 at 0900, Until Discontinu ed, Routine digoxin 2022- No [id number] 125ug 125 mcg, Univers (LANOXIN) 11-18 Oral, ity of tablet 125 15:00: 00:40 DAILY, [place] mcg 00 :10 First dose Medical on Mon Branch 11/18/22 at 0900, Until Discontinu ed, Routine tiotropium 2022- No [id number] 18ug 18 mcg, Univers (SPIRIVA) 11-18 Inhalation ity of inhalation 15:00: 00:40 , DAILY, [place] 18 mcg 00 :10 First dose Medical on Mon [place] 11/18/22 at 0900, Until Discontinu ed furosemide 2022- No [id number] 20mg 20 mg, Univers (LASIX) 11-18 Oral, ity of tablet 20 15:00: 00:40 DAILY, [place] mg 00 :10 First dose Medical on Mon Branch 11/18/22 at 0900, Until Discontinu ed, Routine DULoxetine 2022- No [id number] 30mg 30 mg, Univers (CYMBALTA) 11-18 Oral, ity of capsule 30 15:00: 00:40 DAILY, [place] mg 00 :10 First dose Medical on Mon [place] 11/18/22 at 0900, Until Discontinu ed, Routine digoxin 2022- No [id number] 125ug 125 mcg, Univers (LANOXIN) 11-18 Oral, ity of tablet 125 15:00: 00:40 DAILY, [place] mcg 00 :10 First dose Medical on Mon [place] 11/18/22 at 0900, Until Discontinu ed, Routine carvediloL Yes [id number] 25mg 25 mg, Univers (COREG) 11-18 Oral, BID ity of tablet 25 14:00: MEALS, [place] mg 00 First dose Medical on Mon [place] 11/18/22 at 0800, Until Discontinu ed, Routine apixaban Yes 5mg 5 mg, Univers (ELIQUIS) 11-18 Oral, BID, ity of tablet 5 mg 14:00: First dose [place] 00 on Mon [facility] 11/18/22 at Branch 0800, Until Discontinu ed, Routine
Indicatio ns: DVT/PE carvediloL 2022- No [id number] 25mg 25 mg, Univers (COREG) 11-18 Oral, BID ity of tablet 25 14:00: 00:40 MEALS, [place] mg 00 :10 First dose Medical on Mon [place] 11/18/22 at 0800, Until Discontinu ed, Routine apixaban 2022- No 5mg 5 mg, Univers (ELIQUIS) 11-18 Oral, BID, ity of tablet 5 mg 14:00: 00:40 First dose [place] 00 :10 on [facility] 11/18/22 at Branch 0800, Until Discontinu ed, Routine
Indicatio ns: DVT/PE carvediloL 2022-0 2022- No [id number] 25mg 25 mg, Univers (COREG) 11-18 Oral, BID ity of tablet 25 14:00: 00:40 MEALS, [place] mg 00 :10 First dose Medical on Mon [place] 11/18/22 at 0800, Until Discontinu ed, Routine apixaban 0 2022- No 5mg 5 mg, Univers (ELIQUIS) 11-18 Oral, BID, ity of tablet 5 mg 14:00: 00:40 First dose [place] 00 :10 on Fri [facility] 11/18/22 at Branch 0800, Until Discontinu ed, Routine
Indicatio ns: DVT/PE ALPRAZolam Yes [id number] .25mg Take 0.25 Univers 0.25 mg 2-24 mg by ity of tablet 12:21: mouth at [place] [address] bedtime as Medical needed. Branch pregabalin Yes 50mg Take 50 mg U nivers 50 mg 2-24 by mouth ity of capsule 12:21: at [place] [address] bedtime. Medical Branch rosuvastati Yes 40mg Take 40 mg Univers n (CRESTOR) 2-24 by mouth ity of 40 mg 12:21: at [place] [address] bedtime. Medical Branch pantoprazol Yes 40mg 40 mg, Univ ers e 2-24 Oral, ity of (PROTONIX) 04:00: DAILY AT [place] tablet 00 1700, Medical 40 mg First dose Branch on [facility] 11/17/22 at 2200, Until Discontinu ed, Routine pantoprazol 2022- No 40mg 40 mg, Uni vers e 11-18 Oral, ity of (PROTONIX) 04:00: 00:40 DAILY AT [place] EC tablet 00 :10 1700, Medical 40 mg First dose Branch on [facility] 11/17/22 at 2200, Until Discontinu ed, Routine pantoprazol 2022- No 40mg 40 mg, Uni vers e 11-18 Oral, ity of (PROTONIX) 04:00: 00:40 DAILY AT [place] EC tablet 00 :10 1700, Medical 40 mg First dose Branch on [facility] 11/17/22 at 2200, Until Discontinu ed, Routine rosuvastati Yes [id number] 40mg 40 mg, Univers n (CRESTOR) 2-24 Oral, QHS, it y of tablet 40 03:00: First dose [place] mg 00 on Mon [facility] 11/17/22 at Branch 2100, Until Discontinu ed, Routine pregabalin Yes [id number] 50mg 50 mg, Univers (LYRICA) 2-24 Oral, QHS, ity o f capsule 50 03:00: First dose [place] mg 00 on [facility] 11/17/22 at [place] [address], Until Discontinu ed, Routine amitriptyli Yes [id number] 20mg 20 mg, Univers ne (ELAVIL) 11-18 Oral, QHS, it y of tablet 20 03:00: First dose [place] mg 00 on [facility] 11/17/22 at [place] [address], Until Discontinu ed, Routine rosuvastati 2022- No [id number] 40mg 40 mg, Univers n (CRESTOR) 11-18 Oral, QHS, i ty of tablet 40 03:00: 00:40 First dose [place] mg 00 :10 on [facility] 11/17/22 at [place] [address], Until Discontinu ed, Routine pregabalin 2022- No [id number] 50mg 50 mg, Univers (LYRICA) 11-18 Oral, QHS, ity of capsule 50 03:00: 00:40 First dose [place] mg 00 :10 on [facility] 11/17/22 at [place] [address], Until Discontinu ed, Routine amitriptyli 2022- No [id number] 20mg 20 mg, Univers ne (ELAVIL) 11-18 Oral, QHS, i ty of tablet 20 03:00: 00:40 First dose [place] mg 00 :10 on [facility] 11/17/22 at [place] [address], Until Discontinu ed, Routine rosuvastati 2022- No [id number] 40mg 40 mg, Univers n (CRESTOR) 11-18 Oral, QHS, i ty of tablet 40 03:00: 00:40 First dose [place] mg 00 :10 on [facility] 11/17/22 at [place] [address], Until Discontinu ed, Routine pregabalin 2022- No [id number] 50mg 50 mg, Univers (LYRICA) 11-18 Oral, QHS, ity of capsule 50 03:00: 00:40 First dose [place] mg 00 :10 on [facility] 11/17/22 at [place] [address], Until Discontinu ed, Routine amitriptyli 2022- No [id number] 20mg 20 mg, Univers ne (ELAVIL) 2-24 02-25 Oral, QHS, i ty of tablet 20 03:00: 00:40 First dose [place] mg 00 :10 on [facility] Medical 11/17/22 at Branch 2100, Until Discontinu ed, Routine ketorolac 2022- Yes 15mg 15 mg, Unive rs (TORADOL) 11-18 Slow IV ity of injection 02:24: 02:23 Push, [place] 15 mg 06 :06 Q8HPRN, Medical Starting Branch on [facility] 11/17/22 at 2023, Until 11/20/22 at 2022, Routine, Pain (scale 4-6) ketorolac 2022- No 15mg 15 mg, Unive rs (TORADOL) 11-18 Slow IV ity of injection 02:24: 00:40 Push, [place] 15 mg 06 :10 Q8HPRN, Medical Starting Branch on [place] 11/17/22 at 2023, Until 11/18/22 at 1840, Routine, Pain (scale 4-6) ketorolac 2022- No 15mg 15 mg, Unive rs (TORADOL) 11-18 Slow IV ity of injection 02:24: 00:40 Push, [place] 15 mg 06 :10 Q8HPRN, Medical Starting Branch on [place] 11/17/22 at 2023, Until 11/18/22 at 1840, Routine, Pain (scale 4-6) HYDROmorpho 2022- Yes .5mg 0.5 mg, Un [place] ne 11-18 Slow IV ity of (DILAUDID) 02:23: 02:22 Push, [place] injection 39 :39 Q4HPRN, Medical 0.5 mg Starting Branch on [place] 11/17/22 at 2022, Until 11/19/22 at 2021, Routine, Pain (scale 7-10)
U se approved by (Faculty): [employer] PROVIDER HYDROmorpho 2022- No .5mg 0.5 mg, Un [place] ne 11-18 Slow IV ity of (DILAUDID) 02:23: 00:40 Push, [place] injection 39 :10 Q4HPRN, Medical 0.5 mg Starting Branch on [place] 11/17/22 at 2022, Until Mon11/18/22 at 1840, Routine, Pain (scale 7-10)
U se approved by (Faculty): [employer] PROVIDER HYDROmorpho 2022- No .5mg 0.5 mg, Un [place] ne 11-18 Slow IV ity of (DILAUDID) 02:23: 00:40 Push, [place] injection 39 :10 Q4HPRN, Medical 0.5 mg Starting Branch on [place] 11/17/22 at 2022, Until Mon11/18/22 at 1840, Routine, Pain (scale 7-10)
U se approved by (Faculty): [employer] PROVIDER levETIRAcet Yes [id number] 1500mg 1,500 mg, Univers am (KEPPRA) 11-18 Oral, ity of tablet 02:00: Q12H, [place] 1,500 mg 00 First dose Medic al on [facility] Branch 11/17/22 at 1999, Until Discontinu ed, Routine fluticasone Yes [id number] 1{puff} 1 Puff, Univers propion-etienne 11-18 Inhalation it y of meteroL 02:00: , Q12H, [place] (ADVAIR) 00 First dose Medic al 250-50 on [place] Branch mcg/dose 11/17/22 at inhalation 2000, disk 1 Puff Until Discontinu ed levETIRAcet 2022- No [id number] 1500mg 1,500 mg, Univers am (KEPPRA) 11-18 Oral, ity of tablet 02:00: 00:40 Q12H, [place] 1,500 mg 00 :10 First dose Medic al on [place] Branch 11/17/22 at 1999, Until Discontinu ed, Routine fluticasone 2022- No [id number] 1{puff} 1 Puff, Univers propion-etienne 11-18 Inhalation i ty of meteroL 02:00: 00:40 , Q12H, [place] (ADVAIR) 00 :10 First dose Medic al 250-50 on [place] Branch mcg/dose 11/17/22 at inhalation 1999, disk 1 Puff Until Discontinu ed levETIRAcet 2022- No [id number] 1500mg 1,500 mg, Univers am (KEPPRA) 11-18 Oral, ity of tablet 02:00: 00:40 Q12H, [place] 1,500 mg 00 :10 First dose Medic al on [facility] Branch 11/17/22 at 2000, Until Discontinu ed, Routine fluticasone 2022- No [id number] 1{puff} 1 Puff, [facility] propion-etienne 11-18 Inhalation i ty of meteroL 02:00: 00:40 , Q12H, [place] (ADVAIR) 00 :10 First dose Medic al 250-50 on [facility] Branch mcg/dose 11/17/22 at inhalation 1999, disk 1 Puff Until Discontinu ed acetaminoph Yes 650mg 650 mg, Un austyn en 11-18 Oral, ity of (TYLENOL) 01:49: Q6HPRN, [place] tablet 650 21 Starting Medic al mg on [facility] Branch 11/17/22 at 194, Until Discontinu ed, Routine, Pain (scale 1-3) acetaminoph 2022- No 650mg 650 mg, U nivers en 11-18 Oral, ity of (TYLENOL) 01:49: 00:40 Q6HPRN, [place] tablet 650 21 :10 Starting Medic al mg on [facility] Branch 11/17/22 at 1949, Until Mon11/18/22 at 1840, Routine, Pain (scale 1-3) acetaminoph No 650mg 650 mg, U nivers en 11-18 Oral, ity of (TYLENOL) 01:49: 00:40 Q6HPRN, [place] tablet 650 21 :10 Starting Medic al mg on [facility] Branch 11/17/22 at 1949, Until Mon11/18/22 at 1840, Routine, Pain (scale 1-3) ondansetron Yes 4mg 4 mg, Slow Univers (ZOFRAN 11-18 IV Push, ity of (PF)) 01:48: Q6HPRNSandra injection 4 38 nausea, Medic al mg Starting Branch on [place] 11/17/22 at 1948 ondansetron 2022- No 4mg 4 mg, Slow Univers (ZOFRAN 11-18 IV Push, ity of (PF)) 01:48: 00:40 Q6HPRN, [place] injection 4 38 :10 nausea, Medic al mg Starting Branch on [facility] 11/17/22 at 194 ondansetron 2022- No 4mg 4 mg, Slow Univers (ZOFRAN 11-18 IV Push, ity of (PF)) 01:48: 00:40 Q6HPRN, [place] injection 4 38 :10 nausea, Medic al mg Starting Branch on [facility] 11/17/22 at 1948 ALPRAZolam Yes [id number] .25mg 0.25 mg, Univers (XANAX) 11-18 Oral, ity of tablet 0.25 00:08: QHSPRN, [place] mg 55 Starting Medical on [facility] 11/17/22 at 1808, Until Discontinu ed, Routine, Anxiety ALPRAZolam 2022- No [id number] .25mg 0.25 mg, Univers (XANAX) 11-18 Oral, ity of tablet 0.25 00:08: 00:40 QHSPRN, [place] mg 55 :10 Starting Medical on [facility] 11/17/22 at 1808, Until Mon11/18/22 at 1840, Routine, Anxiety ALPRAZolam 2022- No [id number] .25mg 0.25 mg, Univers (XANAX) 11-18 Oral, ity of tablet 0.25 00:08: 00:40 QHSPRN, [place] mg 55 :10 Starting Medical on [facility] 11/17/22 at 1808, Until Mon11/18/22 at 1840, Routine, Anxiety albuterol Yes [id number] 2.5mg 2.5 mg, Univers (PROVENTIL) 11-18 Inhalation it y of 2.5 mg /3 00:08: , Q4HPRN, [place] mL (0.083 47 Starting Medica l %) on [facility] nebulizer 11/17/22 at solution 1808, 2.5 mg Until Discontinu ed, Routine, Shortness of Breath, Wheezing albuterol 2022- No [id number] 2.5mg 2.5 mg, Univers (PROVENTIL) 11-18 Inhalation i ty of 2.5 mg /3 00:08: 00:40 , Q4HPRN, [place] mL (0.083 47 :10 Starting Medica l %) on [place] Branch nebulizer 11/17/22 at solution 1808, 2.5 mg Until Mon11/18/22 at 1840, Routine, Shortness of Breath, Wheezing albuterol 2022- No [id number] 2.5mg 2.5 mg, Univers (PROVENTIL) 11-18 Inhalation i ty of 2.5 mg /3 00:08: 00:40 , Q4HPRN, [place] mL (0.083 47 :10 Starting Medica l %) on [place] Branch nebulizer 11/17/22 at solution 1808, 2.5 mg Until 11/18/22 at 1840, Routine, Shortness of Breath, Wheezing pantoprazol 2022-0 Yes [id number] 40mg Take 1 Univers e 40 mg EC 2-24 tablet by ity of tablet 00:00: mouth [place] 00 every Medical evening. Branch pantoprazol 2022-0 Yes [id number] 40mg Take 1 Univers e 40 mg EC 2-24 tablet by ity of tablet 00:00: mouth [place] 00 every Medical evening. Branch pantoprazol 2022-0 Yes [id number] 40mg Take 1 Univers e 40 mg EC 2-24 tablet by ity of tablet 00:00: mouth [place] 00 every Medical evening. Branch pantoprazol 2022-0 Yes [id number] 40mg Take 1 Univers e 40 mg EC 2-24 tablet by ity of tablet 00:00: mouth [place] 00 every Medical evening. Branch pantoprazol 2022-0 Yes [id number] 40mg Take 1 Univers e 40 mg EC 2-24 tablet by ity of tablet 00:00: mouth [place] 00 every Medical evening. Branch pantoprazol 2022-0 Yes [id number] 40mg Take 1 Univers e 40 mg EC 2-24 tablet by ity of tablet 00:00: mouth [place] 00 every Medical evening. Branch pantoprazol 2022-0 Yes [id number] 40mg Take 1 Univers e 40 mg EC 2-24 tablet by ity of tablet 00:00: mouth [place] 00 every Medical evening. Branch pantoprazol 2022-0 Yes [id number] 40mg Take 1 Univers e 40 mg EC 2-24 tablet by ity of tablet 00:00: mouth [place] 00 every Medical evening. Branch pantoprazol 2022-0 Yes [id number] 40mg Take 1 Univers e 40 mg EC 2-24 tablet by ity of tablet 00:00: mouth [place] 00 every Medical evening. Branch pantoprazol 2022-0 Yes [id number] 40mg Take 1 Univers e 40 mg EC 2-24 tablet by ity of tablet 00:00: mouth [place] 00 every Medical evening. Branch pantoprazol 2022-0 Yes [id number] 40mg Take 1 Univers e 40 mg EC 2-24 tablet by ity of tablet 00:00: mouth [place] 00 every Medical evening. Branch pantoprazol 2022-0 Yes [id number] 40mg Take 1 Univers e 40 mg EC 2-24 tablet by ity of tablet 00:00: mouth [place] 00 every Medical evening. Branch pantoprazol 2022-0 Yes [id number] 40mg Take 1 Univers e 40 mg EC 2-24 tablet by ity of tablet 00:00: mouth [place] 00 every Medical evening. Branch pantoprazol 2022-0 Yes [id number] 40mg Take 1 Univers e 40 mg EC 2-24 tablet by ity of tablet 00:00: mouth [place] 00 every Medical evening. Branch pantoprazol 2022-0 Yes [id number] 40mg Take 1 Univers e 40 mg EC 2-24 tablet by ity of tablet 00:00: mouth [place] 00 every Medical evening. Branch pantoprazol 2022-0 Yes [id number] 40mg Take 1 Univers e 40 mg EC 2-24 tablet by ity of tablet 00:00: mouth [place] 00 every Medical evening. Branch pantoprazol 2022-0 Yes [id number] 40mg Take 1 Univers e 40 mg EC 2-24 tablet by ity of tablet 00:00: mouth [place] 00 every Medical evening. Branch pantoprazol 2022-0 Yes [id number] 40mg Take 1 Univers e 40 mg EC 2-24 tablet by ity of tablet 00:00: mouth [place] 00 every Medical evening. Branch pantoprazol 2022-0 Yes [id number] 40mg Take 1 Univers e 40 mg EC 2-24 tablet by ity of tablet 00:00: mouth [place] 00 every Medical evening. Branch pantoprazol 2022-0 Yes [id number] 40mg Take 1 Univers e 40 mg EC 2-24 tablet by ity of tablet 00:00: mouth [place] 00 every Medical evening. Branch pantoprazol 2022-0 Yes [id number] 40mg Take 1 Univers e 40 mg EC 2-24 tablet by ity of tablet 00:00: mouth [place] 00 every Medical evening. Branch pantoprazol 2022-0 Yes [id number] 40mg Take 1 Univers e 40 mg EC 2-24 tablet by ity of tablet 00:00: mouth [place] 00 every Medical evening. Branch pantoprazol 2022-0 Yes [id number] 40mg Take 1 Univers e 40 mg EC 2-24 tablet by ity of tablet 00:00: mouth [place] 00 every Medical evening. Branch pantoprazol 2022-0 Yes [id number] 40mg Take 1 Univers e 40 mg EC 2-24 tablet by ity of tablet 00:00: mouth [place] 00 every Medical evening. Branch pantoprazol 2022-0 Yes [id number] 40mg Take 1 Univers e 40 mg EC 2-24 tablet by ity of tablet 00:00: mouth [place] 00 every Medical evening. Branch pantoprazol 2022-0 Yes [id number] 40mg Take 1 Univers e 40 mg EC 2-24 tablet by ity of tablet 00:00: mouth [place] 00 every Medical evening. Branch pantoprazol 2022-0 Yes [id number] 40mg Take 1 Univers e 40 mg EC 2-24 tablet by ity of tablet 00:00: mouth [place] 00 every Medical evening. Branch pantoprazol 2022-0 Yes [id number] 40mg Take 1 Univers e 40 mg EC 2-24 tablet by ity of tablet 00:00: mouth [place] 00 every Medical evening. Branch pantoprazol 2022-0 Yes [id number] 40mg Take 1 Univers e 40 mg EC 2-24 tablet by ity of tablet 00:00: mouth [place] 00 every Medical evening. Branch pantoprazol 2022-0 Yes [id number] 40mg Take 1 Univers e 40 mg EC 2-24 tablet by ity of tablet 00:00: mouth [place] 00 every Medical evening. Branch pantoprazol Yes [id number] 40mg Take 1 Univers e 40 mg EC 2-24 tablet by ity of tablet 00:00: mouth [place] 00 every Medical evening. Branch pantoprazol Yes [id number] 40mg Take 1 Univers e 40 mg EC 2-24 tablet by ity of tablet 00:00: mouth [place] 00 every Medical evening. Branch pantoprazol Yes [id number] 40mg Take 1 Univers e 40 mg EC 2-24 tablet by ity of tablet 00:00: mouth [place] 00 every Medical evening. Branch pantoprazol Yes [id number] 40mg Take 1 Univers e 40 mg EC 2-24 tablet by ity of tablet 00:00: mouth [place] 00 every Medical evening. Branch pantoprazol Yes [id number] 40mg Take 1 Univers e 40 mg EC 2-24 tablet by ity of tablet 00:00: mouth [place] 00 every Medical evening. Branch NaCl 0.9% 2022- No CONTINUOUS U nivers (NS) bolus 11-17 PRN, ity of infusion 23:02: 23:02 [place] 13 :13 on [facility] Medical 11/17/22 at [place] [address], Until Discontinu ed, STAT, CV Intraproce dure NaCl 0.9% 2022- No CONTINUOUS U nivers (NS) bolus 11-17 PRN, ity of infusion 23:02: 23:02 Starting [place] 13 :13 on [facility] 11/17/22 at [place] [address], Until Discontinu ed, STAT, CV Intraproce dure vancomycin 2022- No CONTINUOUS Univers 1000 mg in 11-17 PRN, ity of NS 200 mL 22:59: 22:59 Starting [place] [facility] RTU IV 49 :49 on [facility] 11/17/22 at [place] [id number], Until Discontinu ed, Administer over 60 Minutes, CV Intraproce dure vancomycin 2022- No CONTINUOUS [facility] 1000 mg in 11-17 PRN, ity of NS 200 mL 22:59: 22:59 Starting [place] as RTU IV 49 :49 on [facility] 11/17/22 at [place] [address], Until Discontinu ed, Administer over 60 Minutes, CV Intraproce dure lidocaine 0 2022- No ONCE INTRA U nivers 1% (PF) 11-17 PROCEDURE, ity o f (XYLOCAINE) 22:54: 00:25 [place] injection 44 :15 on [facility] 11/17/22 at [place] [address], Until [facility] 11/17/22 at 1825, Routine, CV Intraproce dure lidocaine 2022-2022- No ONCE INTRA U nivers 1% (PF) 11-17 PROCEDURE, ity o f (XYLOCAINE) 22:54: 00:25 Starting [place] injection 44 :15 on [facility] 11/17/22 at [place] [address], Until [facility] 11/17/22 at 1825, Routine, CV Intraproce dure midazolam 2022- No ONCE INTRA U nivers (VERSED) 11-17 PROCEDURE, ity of injection 22:48: 00:25 Starting [place] as 35 :15 on [facility] 11/17/22 at [place] [id number], Until [facility] 11/17/22 at 1825, Routine, CV Intraproce dure midazolam 0 2022- No ONCE INTRA U nivers (VERSED) 11-17 PROCEDURE, ity of injection 22:48: 00:25 Starting [place] as 35 :15 on [facility] 11/17/22 at [place] [id number], Until [facility] 11/17/22 at 1825, Routine, CV Intraproce dure FENTanyl PF 2022- No ONCE INTRA Univers (SUBLIMAZE 11-17 PROCEDURE, it y of (PF)) 22:48: 00:25 Starting [place] injection 22 :15 on [facility] 11/17/22 at [place] [address], Until [facility] 11/17/22 at 1825, Routine, CV Intraproce dure FENTanyl PF 2022- No ONCE INTRA Univers (SUBLIMAZE 11-17 PROCEDURE, it y of (PF)) 22:48: 00:25 Starting [place] injection 22 :15 on [facility] 11/17/22 at [place] [address], Until [facility] 11/17/22 at 1825, Routine, CV Intraproce dure pregabalin 2023-0 Yes 50mg Take 50 mg U nivers 50 mg 2-02 by mouth ity of capsule 10:34: at [place] [address] bedtime. Medical Branch pregabalin 2023-0 Yes 50mg Take 50 mg U nivers 50 mg 2-02 by mouth ity of capsule 10:34: at [place] [address] bedtime. Medical Branch pregabalin 2023-0 Yes 50mg Take 50 mg U nivers 50 mg 2-02 by mouth ity of capsule 10:34: at [place] [address] bedtime. Medical Branch pregabalin 2023-0 Yes 50mg Take 50 mg U nivers 50 mg 2-02 by mouth ity of capsule 10:34: at [place] [address] bedtime. Medical Branch pregabalin 2023-0 Yes 50mg Take 50 mg U nivers 50 mg 2-02 by mouth ity of capsule 10:34: at [place] [address] bedtime. Medical Branch pregabalin 3-0 Yes 50mg Take 50 mg U nivers 50 mg 2-02 by mouth ity of capsule 10:34: at [place] [address] bedtime. Medical Branch pregabalin 3-0 Yes 50mg Take 50 mg U nivers 50 mg 2-02 by mouth ity of capsule 10:34: at [place] [address] bedtime. Medical Branch pregabalin 3-0 Yes 50mg Take 50 mg U nivers 50 mg 2-02 by mouth ity of capsule 10:34: at [place] [address] bedtime. Medical Branch pregabalin 2023-0 Yes 50mg Take 50 mg U nivers 50 mg 2-02 by mouth ity of capsule 10:34: at [place] [address] bedtime. Medical Branch pregabalin 2023-0 Yes 50mg Take 50 mg U nivers 50 mg 2-02 by mouth ity of capsule 10:34: at [place] [address] bedtime. Medical Branch pregabalin 2023-0 Yes 50mg Take 50 mg U nivers 50 mg 2-02 by mouth ity of capsule 10:34: at [place] [address] bedtime. Medical Branch pregabalin 2023-0 Yes 50mg Take 50 mg U nivers 50 mg 2-02 by mouth ity of capsule 10:34: at [place] [address] bedtime. Medical Branch pregabalin 2023-0 Yes 50mg Take 50 mg U nivers 50 mg 2-02 by mouth ity of capsule 10:34: at [place] [address] bedtime. Medical Branch pregabalin Yes 50mg Take 50 mg U nivers 50 mg 2-02 by mouth ity of capsule 10:34: at [place] 12 bedtime. Medical Branch rosuvastati Yes 40mg Take 40 mg Univers n (CRESTOR) 1-31 by mouth ity of 40 mg 13:24: at [place] tablet 50 bedtime. Medical Branch rosuvastati Yes 40mg Take 40 mg Univers n (CRESTOR) 1-31 by mouth ity of 40 mg 13:24: at [place] tablet 50 bedtime. Medical Branch rosuvastati Yes 40mg Take 40 mg Univers n (CRESTOR) 1-31 by mouth ity of 40 mg 13:24: at [place] tablet 50 bedtime. Medical Branch rosuvastati Yes 40mg Take 40 mg Univers n (CRESTOR) 1-31 by mouth ity of 40 mg 13:24: at [place] tablet 50 bedtime. Medical Branch rosuvastati Yes 40mg Take 40 mg Univers n (CRESTOR) 1-31 by mouth ity of 40 mg 13:24: at [place] tablet 50 bedtime. Medical Branch rosuvastati Yes 40mg Take 40 mg Univers n (CRESTOR) 1-31 by mouth ity of 40 mg 13:24: at [place] tablet 50 bedtime. Medical Branch rosuvastati Yes 40mg Take 40 mg Univers n (CRESTOR) 1-31 by mouth ity of 40 mg 13:24: at [place] tablet 50 bedtime. Medical Branch rosuvastati Yes 40mg Take 40 mg Univers n (CRESTOR) 1-31 by mouth ity of 40 mg 13:24: at [place] tablet 50 bedtime. Medical Branch rosuvastati Yes 40mg Take 40 mg Univers n (CRESTOR) 1-31 by mouth ity of 40 mg 13:24: at [place] tablet 50 bedtime. Medical Branch rosuvastati Yes 40mg Take 40 mg Univers n (CRESTOR) 1-31 by mouth ity of 40 mg 13:24: at [place] tablet 50 bedtime. Medical Branch rosuvastati 0 Yes 40mg Take 40 mg Univers n (CRESTOR) 1-31 by mouth ity of 40 mg 13:24: at [place] tablet 50 bedtime. Medical Branch rosuvastati 0 Yes 40mg Take 40 mg Univers n (CRESTOR) 1-31 by mouth ity of 40 mg 13:24: at [place] tablet 50 bedtime. Medical Branch rosuvastati 0 Yes 40mg Take 40 mg Univers n (CRESTOR) 1-31 by mouth ity of 40 mg 13:24: at [place] tablet 50 bedtime. Medical Branch rosuvastati 0 Yes 40mg Take 40 mg Univers n (CRESTOR) 1-31 by mouth ity of 40 mg 13:24: at [place] tablet 50 bedtime. Medical Branch rosuvastati 0 Yes 40mg Take 40 mg Univers n (CRESTOR) 1-31 by mouth ity of 40 mg 13:24: at [place] tablet 50 bedtime. Medical Branch rosuvastati Yes 40mg Take 40 mg Univers n (CRESTOR) 1-31 by mouth ity of 40 mg 13:24: at [place] tablet 50 bedtime. Medical Branch ipratropium 2022- No 3mL 3 mL, Univ ers -albuteroL 10-09 Inhalation it y of (DUONEB) 12:00: 11:10 , ONCE, 1 [place] 0.5 mg-3 00 :00 dose, On Medical mg(2.5 mg [facility] base)/3 mL 10/09/22 at nebul[place] 0600, GIGI solution 3 mL ipratropium 2022- No 3mL 3 mL, [facility] -albuteroL 10-09 Inhalation it y of (DUONEB) 12:00: 11:11 , ONCE, 1 [place] 0.5 mg-3 00 :00 dose, On Medical mg(2.5 mg [place] [facility] base)/3 mL 10/09/22 at nebulizer 0600, GIGI solution 3 mL predniSONE 2022- No 60mg 60 mg, Univ ers (DELTASONE) 10-09 Oral, ity of tablet 60 11:45: 11:43 ONCE, 1 [place] mg 00 :00 dose, On Medical [facility] 10/09/22 at 0545, GIGI albuterol Yes [id number] 2.5mg Inhale 3 Univers 2.5 mg /3 1-15 mL every 4 ity of mL (0.083 00:00: (four) [place] %) 00 hours. May Medical nebulizer also Branch solution nebulize one extra every 6 hours. azithromyci 2023-0 Yes [id number] 250mg Take 1 Univers n 1-15 tablet by ity of (ZITHROMAX 00:00: mouth [place] Z-HORACIO) 250 00 SEE-INSTRU Med ical mg tablet CTIONS. Branch Take 500 mg day 1, then 250 mg days 2 to 5. albuterol 2023-0 Yes [id number] 2.5mg Inhale 3 Univers 2.5 mg /3 1-15 mL every 4 ity of mL (0.083 00:00: (four) [place] %) 00 hours. May Medical nebulizer also Branch solution nebulize one extra every 6 hours. azithromyci 2023-0 Yes [id number] 250mg Take 1 Univers n 1-15 tablet by ity of (ZITHROMAX 00:00: mouth [place] Z-HORACIO) 250 00 SEE-INSTRU Med ical mg tablet CTIONS. Branch Take 500 mg day 1, then 250 mg days 2 to 5. albuterol 2023-0 Yes [id number] 2.5mg Inhale 3 Univers 2.5 mg /3 1-15 mL every 4 ity of mL (0.083 00:00: (four) [place] %) 00 hours. May Medical nebulizer also Branch solution nebulize one extra every 6 hours. azithromyci 2023-0 Yes [id number] 250mg Take 1 Univers n 1-15 tablet by ity of (ZITHROMAX 00:00: mouth [place] Z-HORACIO) 250 00 SEE-INSTRU Med ical mg tablet CTIONS. Branch Take 500 mg day 1, then 250 mg days 2 to 5. albuterol 2023-0 Yes [id number] 2.5mg Inhale 3 Univers 2.5 mg /3 1-15 mL every 4 ity of mL (0.083 00:00: (four) [place] %) 00 hours. May Medical nebulizer also Branch solution nebulize one extra every 6 hours. azithromyci 2023-0 Yes [id number] 250mg Take 1 Univers n 1-15 tablet by ity of (ZITHROMAX 00:00: mouth [place] Z-HORACIO) 250 00 SEE-INSTRU Med ical mg tablet CTIONS. Branch Take 500 mg day 1, then 250 mg days 2 to 5. albuterol 2023-0 Yes [id number] 2.5mg Inhale 3 Univers 2.5 mg /3 1-15 mL every 4 ity of mL (0.083 00:00: (four) [place] %) 00 hours. May Medical nebulizer also Branch solution nebulize one extra every 6 hours. azithromyci 2023-0 Yes [id number] 250mg Take 1 Univers n 1-15 tablet by ity of (ZITHROMAX 00:00: mouth [place] Z-HORACIO) 250 00 SEE-INSTRU Med ical mg tablet CTIONS. Branch Take 500 mg day 1, then 250 mg days 2 to 5. albuterol 2023-0 Yes [id number] 2.5mg Inhale 3 Univers 2.5 mg /3 1-15 mL every 4 ity of mL (0.083 00:00: (four) [place] %) 00 hours. May Medical nebulizer also Branch solution nebulize one extra every 6 hours. azithromyci 2023-0 Yes [id number] 250mg Take 1 Univers n 1-15 tablet by ity of (ZITHROMAX 00:00: mouth [place] Z-HORACIO) 250 00 SEE-INSTRU Med ical mg tablet CTIONS. Branch Take 500 mg day 1, then 250 mg days 2 to 5. albuterol 2023-0 Yes [id number] 2.5mg Inhale 3 Univers 2.5 mg /3 1-15 mL every 4 ity of mL (0.083 00:00: (four) [place] %) 00 hours. May Medical nebulizer also Branch solution nebulize one extra every 6 hours. azithromyci 2023-0 Yes [id number] 250mg Take 1 Univers n 1-15 tablet by ity of (ZITHROMAX 00:00: mouth [place] Z-HORACIO) 250 00 SEE-INSTRU Med ical mg tablet CTIONS. Branch Take 500 mg day 1, then 250 mg days 2 to 5. albuterol 2023-0 Yes [id number] 2.5mg Inhale 3 Univers 2.5 mg /3 1-15 mL every 4 ity of mL (0.083 00:00: (four) [place] %) 00 hours. May Medical nebulizer also Branch solution nebulize one extra every 6 hours. azithromyci 2023-0 Yes [id number] 250mg Take 1 Univers n 1-15 tablet by ity of (ZITHROMAX 00:00: mouth [place] Z-HORACIO) 250 00 SEE-INSTRU Med ical mg tablet CTIONS. Branch Take 500 mg day 1, then 250 mg days 2 to 5. albuterol 2023-0 Yes [id number] 2.5mg Inhale 3 Univers 2.5 mg /3 1-15 mL every 4 ity of mL (0.083 00:00: (four) [place] %) 00 hours. May Medical nebulizer also Branch solution nebulize one extra every 6 hours. azithromyci 2023-0 Yes [id number] 250mg Take 1 Univers n 1-15 tablet by ity of (ZITHROMAX 00:00: mouth [place] Z-HORACIO) 250 00 SEE-INSTRU Med ical mg tablet CTIONS. Branch Take 500 mg day 1, then 250 mg days 2 to 5. albuterol 2023-0 Yes [id number] 2.5mg Inhale 3 Univers 2.5 mg /3 1-15 mL every 4 ity of mL (0.083 00:00: (four) [place] %) 00 hours. May Medical nebulizer also Branch solution nebulize one extra every 6 hours. azithromyci 2023-0 Yes [id number] 250mg Take 1 Univers n 1-15 tablet by ity of (ZITHROMAX 00:00: mouth [place] Z-HORACIO) 250 00 SEE-INSTRU Med ical mg tablet CTIONS. Branch Take 500 mg day 1, then 250 mg days 2 to 5. albuterol 2023-0 Yes [id number] 2.5mg Inhale 3 Univers 2.5 mg /3 1-15 mL every 4 ity of mL (0.083 00:00: (four) [place] %) 00 hours. May Medical nebulizer also Branch solution nebulize one extra every 6 hours. azithromyci 2023-0 Yes [id number] 250mg Take 1 Univers n 1-15 tablet by ity of (ZITHROMAX 00:00: mouth [place] Z-HORACIO) 250 00 SEE-INSTRU Med ical mg tablet CTIONS. Branch Take 500 mg day 1, then 250 mg days 2 to 5. albuterol 2023-0 Yes [id number] 2.5mg Inhale 3 Univers 2.5 mg /3 1-15 mL every 4 ity of mL (0.083 00:00: (four) [place] %) 00 hours. May Medical nebulizer also Branch solution nebulize one extra every 6 hours. azithromyci 2023-0 Yes [id number] 250mg Take 1 Univers n 1-15 tablet by ity of (ZITHROMAX 00:00: mouth [place] Z-HORACIO) 250 00 SEE-INSTRU Med ical mg tablet CTIONS. Branch Take 500 mg day 1, then 250 mg days 2 to 5. albuterol 2023-0 Yes [id number] 2.5mg Inhale 3 Univers 2.5 mg /3 1-15 mL every 4 ity of mL (0.083 00:00: (four) [place] %) 00 hours. May Medical nebulizer also Branch solution nebulize one extra every 6 hours. azithromyci 2023-0 Yes [id number] 250mg Take 1 Univers n 1-15 tablet by ity of (ZITHROMAX 00:00: mouth [place] Z-HORACIO) 250 00 SEE-INSTRU Med ical mg tablet CTIONS. Branch Take 500 mg day 1, then 250 mg days 2 to 5. albuterol 2023-0 Yes [id number] 2.5mg Inhale 3 Univers 2.5 mg /3 1-15 mL every 4 ity of mL (0.083 00:00: (four) [place] %) 00 hours. May Medical nebulizer also Branch solution nebulize one extra every 6 hours. azithromyci 2023-0 Yes [id number] 250mg Take 1 Univers n 1-15 tablet by ity of (ZITHROMAX 00:00: mouth [place] Z-HORACIO) 250 00 SEE-INSTRU Med ical mg tablet CTIONS. Branch Take 500 mg day 1, then 250 mg days 2 to 5. albuterol 2023-0 Yes [id number] 2.5mg Inhale 3 Univers 2.5 mg /3 1-15 mL every 4 ity of mL (0.083 00:00: (four) [place] %) 00 hours. May Medical nebulizer also Branch solution nebulize one extra every 6 hours. azithromyci 2023-0 Yes [id number] 250mg Take 1 Univers n 1-15 tablet by ity of (ZITHROMAX 00:00: mouth [place] Z-HORACIO) 250 00 SEE-INSTRU Med ical mg tablet CTIONS. Branch Take 500 mg day 1, then 250 mg days 2 to 5. albuterol 2023-0 Yes [id number] 2.5mg Inhale 3 Univers 2.5 mg /3 1-15 mL every 4 ity of mL (0.083 00:00: (four) [place] %) 00 hours. May Medical nebulizer also Branch solution nebulize one extra every 6 hours. azithromyci 2023-0 Yes [id number] 250mg Take 1 Univers n 1-15 tablet by ity of (ZITHROMAX 00:00: mouth [place] Z-HORACIO) 250 00 SEE-INSTRU Med ical mg tablet CTIONS. Branch Take 500 mg day 1, then 250 mg days 2 to 5. albuterol 2023-0 Yes [id number] 2.5mg Inhale 3 Univers 2.5 mg /3 1-15 mL every 4 ity of mL (0.083 00:00: (four) [place] %) 00 hours. May Medical nebulizer also Branch solution nebulize one extra every 6 hours. azithromyci 2023-0 Yes [id number] 250mg Take 1 Univers n 1-15 tablet by ity of (ZITHROMAX 00:00: mouth [place] Z-HORACIO) 250 00 SEE-INSTRU Med ical mg tablet CTIONS. Branch Take 500 mg day 1, then 250 mg days 2 to 5. albuterol 2023-0 Yes [id number] 2.5mg Inhale 3 Univers 2.5 mg /3 1-15 mL every 4 ity of mL (0.083 00:00: (four) [place] %) 00 hours. May Medical nebulizer also Branch solution nebulize one extra every 6 hours. azithromyci 2023-0 Yes [id number] 250mg Take 1 Univers n 1-15 tablet by ity of (ZITHROMAX 00:00: mouth [place] Z-HORACIO) 250 00 SEE-INSTRU Med ical mg tablet CTIONS. Branch Take 500 mg day 1, then 250 mg days 2 to 5. albuterol 2023-0 Yes [id number] 2.5mg Inhale 3 Univers 2.5 mg /3 1-15 mL every 4 ity of mL (0.083 00:00: (four) [place] %) 00 hours. May Medical nebulizer also Branch solution nebulize one extra every 6 hours. azithromyci 2023-0 Yes [id number] 250mg Take 1 Univers n 1-15 tablet by ity of (ZITHROMAX 00:00: mouth [place] Z-HORACIO) 250 00 SEE-INSTRU Med ical mg tablet CTIONS. Branch Take 500 mg day 1, then 250 mg days 2 to 5. albuterol 2023-0 Yes [id number] 2.5mg Inhale 3 Univers 2.5 mg /3 1-15 mL every 4 ity of mL (0.083 00:00: (four) [place] %) 00 hours. May Medical nebulizer also Branch solution nebulize one extra every 6 hours. azithromyci 2023-0 Yes [id number] 250mg Take 1 Univers n 1-15 tablet by ity of (ZITHROMAX 00:00: mouth [place] Z-HORACIO) 250 00 SEE-INSTRU Med ical mg tablet CTIONS. Branch Take 500 mg day 1, then 250 mg days 2 to 5. albuterol 2023-0 Yes [id number] 2.5mg Inhale 3 Univers 2.5 mg /3 1-15 mL every 4 ity of mL (0.083 00:00: (four) [place] %) 00 hours. May Medical nebulizer also Branch solution nebulize one extra every 6 hours. albuterol 2023-0 Yes [id number] 2.5mg Inhale 3 Univers 2.5 mg /3 1-15 mL every 4 ity of mL (0.083 00:00: (four) [place] %) 00 hours. May Medical nebulizer also Branch solution nebulize one extra every 6 hours. albuterol 2023-0 Yes [id number] 2.5mg Inhale 3 Univers 2.5 mg /3 1-15 mL every 4 ity of mL (0.083 00:00: (four) [place] %) 00 hours. May Medical nebulizer also Branch solution nebulize one extra every 6 hours. albuterol 2023-0 Yes [id number] 2.5mg Inhale 3 Univers 2.5 mg /3 1-15 mL every 4 ity of mL (0.083 00:00: (four) [place] %) 00 hours. May Medical nebulizer also Branch solution nebulize one extra every 6 hours. albuterol 2023-0 Yes [id number] 2.5mg Inhale 3 Univers 2.5 mg /3 1-15 mL every 4 ity of mL (0.083 00:00: (four) [place] %) 00 hours. May Medical nebulizer also Branch solution nebulize one extra every 6 hours. albuterol 2023-0 Yes [id number] 2.5mg Inhale 3 Univers 2.5 mg /3 1-15 mL every 4 ity of mL (0.083 00:00: (four) [place] %) 00 hours. May Medical nebulizer also Branch solution nebulize one extra every 6 hours. albuterol 2023-0 Yes [id number] 2.5mg Inhale 3 Univers 2.5 mg /3 1-15 mL every 4 ity of mL (0.083 00:00: (four) [place] %) 00 hours. May Medical nebulizer also Branch solution nebulize one extra every 6 hours. albuterol 2023-0 Yes [id number] 2.5mg Inhale 3 Univers 2.5 mg /3 1-15 mL every 4 ity of mL (0.083 00:00: (four) [place] %) 00 hours. May Medical nebulizer also Branch solution nebulize one extra every 6 hours. albuterol 2023-0 Yes [id number] 2.5mg Inhale 3 Univers 2.5 mg /3 1-15 mL every 4 ity of mL (0.083 00:00: (four) [place] %) 00 hours. May Medical nebulizer also Branch solution nebulize one extra every 6 hours. albuterol 2023-0 Yes [id number] 2.5mg Inhale 3 Univers 2.5 mg /3 1-15 mL every 4 ity of mL (0.083 00:00: (four) [place] %) 00 hours. May Medical nebulizer also Branch solution nebulize one extra every 6 hours. albuterol 2023-0 Yes [id number] 2.5mg Inhale 3 Univers 2.5 mg /3 1-15 mL every 4 ity of mL (0.083 00:00: (four) [place] %) 00 hours. May Medical nebulizer also Branch solution nebulize one extra every 6 hours. albuterol 2023-0 Yes [id number] 2.5mg Inhale 3 Univers 2.5 mg /3 1-15 mL every 4 ity of mL (0.083 00:00: (four) [place] %) 00 hours. May Medical nebulizer also Branch solution nebulize one extra every 6 hours. albuterol 2023-0 Yes [id number] 2.5mg Inhale 3 Univers 2.5 mg /3 1-15 mL every 4 ity of mL (0.083 00:00: (four) [place] %) 00 hours. May Medical nebulizer also Branch solution nebulize one extra every 6 hours. albuterol 2023-0 Yes [id number] 2.5mg Inhale 3 Univers 2.5 mg /3 1-15 mL every 4 ity of mL (0.083 00:00: (four) [place] %) 00 hours. May Medical nebulizer also Branch solution nebulize one extra every 6 hours. albuterol 2023-0 Yes [id number] 2.5mg Inhale 3 Univers 2.5 mg /3 1-15 mL every 4 ity of mL (0.083 00:00: (four) [place] %) 00 hours. May Medical nebulizer also Branch solution nebulize one extra every 6 hours. albuterol 2023-0 Yes [id number] 2.5mg Inhale 3 Univers 2.5 mg /3 1-15 mL every 4 ity of mL (0.083 00:00: (four) [place] %) 00 hours. May Medical nebulizer also Branch solution nebulize one extra every 6 hours. albuterol 2023-0 Yes [id number] 2.5mg Inhale 3 Univers 2.5 mg /3 1-15 mL every 4 ity of mL (0.083 00:00: (four) [place] %) 00 hours. May Medical nebulizer also Branch solution nebulize one extra every 6 hours. albuterol 2023-0 Yes [id number] 2.5mg Inhale 3 Univers 2.5 mg /3 1-15 mL every 4 ity of mL (0.083 00:00: (four) [place] %) 00 hours. May Medical nebulizer also Branch solution nebulize one extra every 6 hours. albuterol 2023-0 Yes [id number] 2.5mg Inhale 3 Univers 2.5 mg /3 1-15 mL every 4 ity of mL (0.083 00:00: (four) [place] %) 00 hours. May Medical nebulizer also Branch solution nebulize one extra every 6 hours. albuterol 2023-0 Yes [id number] 2.5mg Inhale 3 Univers 2.5 mg /3 1-15 mL every 4 ity of mL (0.083 00:00: (four) [place] %) 00 hours. May Medical nebulizer also Branch solution nebulize one extra every 6 hours. albuterol 2023-0 Yes [id number] 2.5mg Inhale 3 Univers 2.5 mg /3 1-15 mL every 4 ity of mL (0.083 00:00: (four) [place] %) 00 hours. May Medical nebulizer also Branch solution nebulize one extra every 6 hours. albuterol 2023-0 Yes [id number] 2.5mg Inhale 3 Univers 2.5 mg /3 1-15 mL every 4 ity of mL (0.083 00:00: (four) [place] %) 00 hours. May Medical nebulizer also Branch solution nebulize one extra every 6 hours. albuterol 2023-0 Yes [id number] 2.5mg Inhale 3 Univers 2.5 mg /3 1-15 mL every 4 ity of mL (0.083 00:00: (four) [place] %) 00 hours. May Medical nebulizer also Branch solution nebulize one extra every 6 hours. albuterol 2023-0 Yes [id number] 2.5mg Inhale 3 Univers 2.5 mg /3 1-15 mL every 4 ity of mL (0.083 00:00: (four) [place] %) 00 hours. May Medical nebulizer also Branch solution nebulize one extra every 6 hours. albuterol 2023-0 Yes [id number] 2.5mg Inhale 3 Univers 2.5 mg /3 1-15 mL every 4 ity of mL (0.083 00:00: (four) [place] %) 00 hours. May Medical nebulizer also Branch solution nebulize one extra every 6 hours. albuterol 2023-0 Yes [id number] 2.5mg Inhale 3 Univers 2.5 mg /3 1-15 mL every 4 ity of mL (0.083 00:00: (four) [place] %) 00 hours. May Medical nebulizer also Branch solution nebulize one extra every 6 hours. albuterol 2023-0 Yes [id number] 2.5mg Inhale 3 Univers 2.5 mg /3 1-15 mL every 4 ity of mL (0.083 00:00: (four) [place] %) 00 hours. May Medical nebulizer also Branch solution nebulize one extra every 6 hours. albuterol 2023-0 Yes [id number] 2.5mg Inhale 3 Univers 2.5 mg /3 1-15 mL every 4 ity of mL (0.083 00:00: (four) [place] %) 00 hours. May Medical nebulizer also Branch solution nebulize one extra every 6 hours. albuterol 2023-0 Yes [id number] 2.5mg Inhale 3 Univers 2.5 mg /3 1-15 mL every 4 ity of mL (0.083 00:00: (four) [place] %) 00 hours. May Medical nebulizer also Branch solution nebulize one extra every 6 hours. albuterol 2023-0 Yes [id number] 2.5mg Inhale 3 Univers 2.5 mg /3 1-15 mL every 4 ity of mL (0.083 00:00: (four) [place] %) 00 hours. May Medical nebulizer also Branch solution nebulize one extra every 6 hours. albuterol 2023-0 Yes [id number] 2.5mg Inhale 3 Univers 2.5 mg /3 1-15 mL every 4 ity of mL (0.083 00:00: (four) [place] %) 00 hours. May Medical nebulizer also Branch solution nebulize one extra every 6 hours. albuterol 2023-0 Yes [id number] 2.5mg Inhale 3 Univers 2.5 mg /3 1-15 mL every 4 ity of mL (0.083 00:00: (four) [place] %) 00 hours. May Medical nebulizer also Branch solution nebulize one extra every 6 hours. albuterol 2023-0 Yes [id number] 2.5mg Inhale 3 Univers 2.5 mg /3 1-15 mL every 4 ity of mL (0.083 00:00: (four) [place] %) 00 hours. May Medical nebulizer also Branch solution nebulize one extra every 6 hours. albuterol 2023-0 Yes [id number] 2.5mg Inhale 3 Univers 2.5 mg /3 1-15 mL every 4 ity of mL (0.083 00:00: (four) [place] %) 00 hours. May Medical nebulizer also Branch solution nebulize one extra every 6 hours. albuterol 2023-0 Yes [id number] 2.5mg Inhale 3 Univers 2.5 mg /3 1-15 mL every 4 ity of mL (0.083 00:00: (four) [place] %) 00 hours. May Medical nebulizer also Branch solution nebulize one extra every 6 hours. azithromyci 3-0 2023- No [id number] 250mg Take 1 Univers n -24 tablet by ity of (ZITHROMAX 00:00: 00:00 mouth [place] Z-HORACIO) 250 00 :00 SEE-INSTRU Med ical mg tablet CTIONS. Branch Take 500 mg day 1, then 250 mg days 2 to 5. azithromyci 2022-0 3- No [id number] 250mg Take 1 Univers n -24 tablet by ity of (ZITHROMAX 00:00: 00:00 mouth [place] Z-HORACIO) 250 00 :00 SEE-INSTRU Med ical mg tablet CTIONS. Branch Take 500 mg day 1, then 250 mg days 2 to 5. azithromyci 3-0 3- No [id number] 250mg Take 1 Univers n -11-18 tablet by ity of (ZITHROMAX 00:00: 00:00 mouth [place] Z-HORACIO) 250 00 :00 SEE-INSTRU Med ical mg tablet CTIONS. Branch Take 500 mg day 1, then 250 mg days 2 to 5. predniSONE 2023-0 2023- No [id number] 60mg Take 3 Univers 20 mg 10-09 tablets by ity of tablet 00:00: 05:59 mouth [place] 00 :00 every Medical morning Branch for 5 days. predniSONE 2023-0 2023- No [id number] 60mg Take 3 Univers 20 mg -10-15 tablets by ity of tablet 00:00: 05:59 mouth [place] 00 :00 every Medical morning Branch for 5 days. predniSONE 2023-0 2023- No [id number] 60mg Take 3 [facility] 20 mg 1-15 01-21 tablets by ity of tablet 00:00: 05:59 mouth [place] 00 :00 every Medical morning Branch for 5 days. amitriptyli 0 Yes [id number] 20mg Take 2 Univers ne 10 mg 1-06 tablets by ity o f tablet 00:00: mouth at [place] 00 bedtime. Medical Branch amitriptyli 0 Yes [id number] 20mg Take 2 Univers ne 10 mg 1-06 tablets by ity o f tablet 00:00: mouth at [place] 00 bedtime. Medical Branch amitriptyli 0 Yes [id number] 20mg Take 2 Univers ne 10 mg 1-06 tablets by ity o f tablet 00:00: mouth at [place] 00 bedtime. Medical Branch amitriptyli 0 Yes [id number] 20mg Take 2 Univers ne 10 mg 1-06 tablets by ity o f tablet 00:00: mouth at [place] 00 bedtime. Medical Branch amitriptyli 0 Yes [id number] 20mg Take 2 Univers ne 10 mg 1-06 tablets by ity o f tablet 00:00: mouth at [place] 00 bedtime. [facility] amitriptyli 0 Yes [id number] 20mg Take 2 [facility] ne 10 mg 1-06 tablets by it[facility] o f tablet 00:00: mouth at [place] 00 bedtime. [facility] amitriptyli 0 Yes [id number] 20mg Take 2 [facility] ne 10 mg 1-06 tablets by ity o f tablet 00:00: mouth at [place] 00 bedtime. [facility] amitriptyli 0 Yes [id number] 20mg Take 2 [facility] ne 10 mg 1-06 tablets by ity o f tablet 00:00: mouth at [place] 00 bedtime. [facility] amitriptyli 0 Yes [id number] 20mg Take 2 [facility] ne 10 mg 1-06 tablets by ity o f tablet 00:00: mouth at [place] 00 bedtime. [facility] amitriptyli 0 Yes [id number] 20mg Take 2 [facility] ne 10 mg 1-06 tablets by ity o f tablet 00:00: mouth at [place] 00 bedtime. [facility] amitriptyli 0 Yes [id number] 20mg Take 2 [facility] 10 mg 1-06 tablets by ity o f tablet 00:00: mouth at [place] 00 bedtime. [facility] amitriptyli 2022-0 Yes [id number] 20mg Take 2 [facility] ne 10 mg 1-06 tablets by ity o f tablet 00:00: mouth at [place] 00 bedtime. [facility] amitriptyli 2022-0 Yes [id number] 20mg Take 2 [facility] 10 mg 1-06 tablets by ity o f tablet 00:00: mouth at [place] 00 bedtime. [facility] amitriptyli 2022-0 Yes [id number] 20mg Take 2 [facility] 10 mg 1-06 tablets by ity o f tablet 00:00: mouth at [place] 00 bedtime. [facility] amitriptyli 2022-0 Yes [id number] 20mg Take 2 [facility] 10 mg 1-06 tablets by ity o f tablet 00:00: mouth at [place] 00 bedtime. [facility] amitriptyli 2022-0 Yes [id number] 20mg Take 2 [facility] 10 mg 1-06 tablets by ity o f tablet 00:00: mouth at [place] 00 bedtime. [facility] amitriptyli 2022-0 Yes [id number] 20mg Take 2 [facility] 10 mg 1-06 tablets by ity o f tablet 00:00: mouth at [place] 00 bedtime. [facility] amitriptyli 2022-0 Yes [id number] 20mg Take 2 [facility] 10 mg 1-06 tablets by ity o f tablet 00:00: mouth at [place] 00 bedtime. [facility] amitriptyli 2022-0 Yes [id number] 20mg Take 2 [facility] 10 mg 1-06 tablets by ity o f tablet 00:00: mouth at [place] 00 bedtime. [facility] amitriptyli 2022-0 Yes [id number] 20mg Take 2 [facility] 10 mg 1-06 tablets by ity o f tablet 00:00: mouth at [place] 00 bedtime. [facility] amitriptyli 2022-0 Yes [id number] 20mg Take 2 [facility] 10 mg 1-06 tablets by ity o f tablet 00:00: mouth at [place] 00 bedtime. [facility] amitriptyli 2022-0 Yes [id number] 20mg Take 2 [facility] 10 mg 1-06 tablets by it[facility] o f tablet 00:00: mouth at [place] 00 bedtime. [facility] amitriptyli 2022-0 Yes [id number] 20mg Take 2 [facility] 10 mg 1-06 tablets by ity o f tablet 00:00: mouth at [place] 00 bedtime. [facility] amitriptyli 2022-0 Yes [id number] 20mg Take 2 [facility] 10 mg 1-06 tablets by ity o f tablet 00:00: mouth at [place] 00 bedtime. [facility] amitriptyli 2022-0 Yes [id number] 20mg Take 2 [facility] 10 mg 1-06 tablets by ity o f tablet 00:00: mouth at [place] 00 bedtime. [facility] amitriptyli 2022-0 Yes [id number] 20mg Take 2 [facility] 10 mg 1-06 tablets by ity o f tablet 00:00: mouth at [place] 00 bedtime. [facility] amitriptyli 2022-0 Yes [id number] 20mg Take 2 [facility] 10 mg 1-06 tablets by ity o f tablet 00:00: mouth at [place] 00 bedtime. [facility] amitriptyli 2022-0 Yes [id number] 20mg Take 2 [facility] 10 mg 1-06 tablets by ity o f tablet 00:00: mouth at [place] 00 bedtime. [facility] amitriptyli 2022-0 Yes [id number] 20mg Take 2 [facility] 10 mg 1-06 tablets by ity o f tablet 00:00: mouth at [place] 00 bedtime. [facility] amitriptyli 2022-0 Yes [id number] 20mg Take 2 [facility] 10 mg 1-06 tablets by ity o f tablet 00:00: mouth at [place] 00 bedtime. [facility] amitriptyli 2022-0 Yes [id number] 20mg Take 2 [facility] 10 mg 1-06 tablets by ity o f tablet 00:00: mouth at [place] 00 bedtime. [facility] amitriptyli 2022-0 Yes [id number] 20mg Take 2 [facility] 10 mg 1-06 tablets by ity o f tablet 00:00: mouth at [place] 00 bedtime. [facility] amitriptyli 2022-0 Yes [id number] 20mg Take 2 [facility] 10 mg 1-06 tablets by ity o f tablet 00:00: mouth at [place] 00 bedtime. [facility] amitriptyli 2022-0 Yes [id number] 20mg Take 2 [facility] 10 mg 1-06 tablets by ity o f tablet 00:00: mouth at [place] 00 bedtime. [facility] amitriptyli 2022-0 Yes [id number] 20mg Take 2 [facility] 10 mg 1-06 tablets by ity o f tablet 00:00: mouth at [place] 00 bedtime. [facility] amitriptyli 2022-0 Yes [id number] 20mg Take 2 [facility] 10 mg 1-06 tablets by ity o f tablet 00:00: mouth at [place] 00 bedtime. [facility] amitriptyli 2022-0 Yes [id number] 20mg Take 2 [facility] 10 mg 1-06 tablets by ity o f tablet 00:00: mouth at [place] 00 bedtime. [facility] amitriptyli Yes [id number] 20mg Take 2 [facility] 10 mg 1-06 tablets by ity o f tablet 00:00: mouth at [place] 00 bedtime. [facility] amitriptyli 2022-0 Yes [id number] 20mg Take 2 [facility] 10 mg 1-06 tablets by ity o f tablet 00:00: mouth at [place] 00 bedtime. [facility] amitriptyli 0 Yes [id number] 20mg Take 2 [facility] 10 mg 1-06 tablets by ity o f tablet 00:00: mouth at [place] 00 bedtime. [facility] amitriptyli 2022-0 Yes [id number] 20mg Take 2 [facility] 10 mg 1-06 tablets by ity o f tablet 00:00: mouth at [place] 00 bedtime. [facility] amitriptyli 2022-0 Yes [id number] 20mg Take 2 [facility] 10 mg 1-06 tablets by ity o f tablet 00:00: mouth at [place] 00 bedtime. [facility] amitriptyli 2022-0 Yes [id number] 20mg Take 2 [facility] 10 mg 1-06 tablets by ity o f tablet 00:00: mouth at [place] 00 bedtime. [facility] amitriptyli 2022-0 Yes [id number] 20mg Take 2 [facility] 10 mg 1-06 tablets by ity o f tablet 00:00: mouth at [place] 00 bedtime. [facility] amitriptyli 2022-0 Yes [id number] 20mg Take 2 [facility] 10 mg 1-06 tablets by ity o f tablet 00:00: mouth at [place] 00 bedtime. [facility] amitriptyli 2022-0 Yes [id number] 20mg Take 2 [facility] 10 mg 1-06 tablets by ity o f tablet 00:00: mouth at [place] 00 bedtime. [facility] amitriptyli 2022-0 Yes [id number] 20mg Take 2 [facility] 10 mg 1-06 tablets by ity o f tablet 00:00: mouth at [place] 00 bedtime. [facility] amitriptyli 2022-0 Yes [id number] 20mg Take 2 [facility] 10 mg 1-06 tablets by ity o f tablet 00:00: mouth at [place] 00 bedtime. [facility] amitriptyli 2022-0 Yes [id number] 20mg Take 2 [facility] 10 mg 1-06 tablets by ity o f tablet 00:00: mouth at [place] 00 bedtime. [facility] amitriptyli 2022-0 Yes [id number] 20mg Take 2 [facility] 10 mg 1-06 tablets by ity o f tablet 00:00: mouth at [place] 00 bedtime. [facility] amitriptyli 2022-0 Yes [id number] 20mg Take 2 [facility] 10 mg 1-06 tablets by ity o f tablet 00:00: mouth at [place] 00 bedtime. [facility] amitriptyli 2022-0 Yes [id number] 20mg Take 2 [facility] 10 mg 1-06 tablets by ity o f tablet 00:00: mouth at [place] 00 bedtime. [facility] amitriptyli 2022-0 Yes [id number] 20mg Take 2 [facility] 10 mg 1-06 tablets by ity o f tablet 00:00: mouth at [place] 00 bedtime. [facility] amitriptyli 2022-0 Yes [id number] 20mg Take 2 [facility] 10 mg 1-06 tablets by ity o f tablet 00:00: mouth at [place] 00 bedtime. [facility] amitriptyli 2022-0 Yes [id number] 20mg Take 2 [facility] ne 10 mg 1-06 tablets by ity o f tablet 00:00: mouth at [place] 00 bedtime. [facility] amitriptyli 2022-0 Yes [id number] 20mg Take 2 [facility] ne 10 mg 1-06 tablets by ity o f tablet 00:00: mouth at [place] 00 bedtime. [facility] amitriptyli 0 Yes [id number] 20mg Take 2 [facility] ne 10 mg 1-05 tablets by ity o f tablet 00:00: mouth at [place] 00 bedtime. [facility] amitriptyli 2022-0 Yes [id number] 20mg Take 2 [facility] ne 10 mg 1-05 tablets by ity o f tablet 00:00: mouth at [place] 00 bedtime. [facility] amitriptyli 0 2023- No [id number] 20mg Take 2 [facility] ne 10 mg 1-05 01-06 tablets by ity of tablet 00:00: 00:00 mouth at [place] 00 :00 bedtime. Medical Branch pantoprazol 0 Yes 40mg 40 mg, [facility] ers e 03 Oral, ity of (PROTONIX) 15:00: DAILY, [place] EC tablet 00 First dose Medi blane 40 mg on Mon09/27/22 at 0900, Until Discontinu ed, Routine methylPREDN Yes 40mg 40 mg, [facility] ISolone sod 09-26 Intravenou it y of succ 15:00: s, DAILY, [place] (SOLU-MEDRO 00 First dose Me dical L (PF)) (after Branch injection last 40 mg modificati on) on Mon09/26/22 at 0900, Until Discontinu ed, 1 mL ALPRAZolam 0 Yes [id number] .25mg Take 0.25 [facility] 0.25 mg 1-02 mg by ity of tablet 11:38: mouth at [place] [address] bedtime as Medical needed. Branch pregabalin 0 Yes 50mg Take 50 mg U nivers 50 mg 1-02 by mouth ity of capsule 11:38: at [place] [address] bedtime. Medical Branch ALPRAZolam 0 Yes [id number] .25mg Take 0.25 [facility] 0.25 mg 1-02 mg by ity of tablet 11:38: mouth at [place] 06 bedtime as Medical needed. Branch pregabalin 0 Yes 50mg Take 50 mg U nivers 50 mg 1-02 by mouth ity of capsule 11:38: at [place] [address] bedtime. Medical Branch ALPRAZolam 0 Yes [id number] .25mg Take 0.25 [facility] 0.25 mg 1-02 mg by ity of tablet 11:38: mouth at [place] 06 bedtime as Medical needed. Branch pregabalin 3-0 Yes 50mg Take 50 mg U nivers 50 mg 1-02 by mouth ity of capsule 11:38: at [place] 06 bedtime. Medical Branch ALPRAZolam 2022-0 Yes [id number] .25mg Take 0.25 [facility] 0.25 mg 1-02 mg by ity of tablet 11:38: mouth at [place] 06 bedtime as Medical needed. Branch pregabalin 3-0 Yes 50mg Take 50 mg U nivers 50 mg 1-02 by mouth ity of capsule 11:38: at [place] 06 bedtime. Medical Branch ALPRAZolam 2022-0 Yes [id number] .25mg Take 0.25 [facility] 0.25 mg 1-02 mg by ity of tablet 11:38: mouth at [place] 06 bedtime as Medical needed. Branch pregabalin 2022-0 Yes 50mg Take 50 mg U nivers 50 mg 1-02 by mouth ity of capsule 11:38: at [place] [address] bedtime. Medical Branch ALPRAZolam 2022-0 Yes [id number] .25mg Take 0.25 [facility] 0.25 mg 1-02 mg by ity of tablet 11:38: mouth at [place] 06 bedtime as Medical needed. Branch pregabalin 3-0 Yes 50mg Take 50 mg U nivers 50 mg 1-02 by mouth ity of capsule 11:38: at [place] 06 bedtime. Medical Branch ALPRAZolam 3-0 Yes [id number] .25mg Take 0.25 [facility] 0.25 mg 1-02 mg by ity of tablet 11:38: mouth at [place] 06 bedtime as Medical needed. Branch pregabalin 3-0 Yes 50mg Take 50 mg U nivers 50 mg 1-02 by mouth ity of capsule 11:38: at [place] 06 bedtime. Medical Branch ALPRAZolam 3-0 Yes [id number] .25mg Take 0.25 [facility] 0.25 mg 1-02 mg by ity of tablet 11:38: mouth at [place] 06 bedtime as Medical needed. Branch pregabalin 3-0 Yes 50mg Take 50 mg U nivers 50 mg 1-02 by mouth ity of capsule 11:38: at [place] 06 bedtime. Medical Branch ALPRAZolam 2022-0 Yes [id number] .25mg Take 0.25 [facility] 0.25 mg 1-02 mg by ity of tablet 11:38: mouth at [place] [address] bedtime as Medical needed. Branch pregabalin 2022-0 Yes 50mg Take 50 mg U nivers 50 mg 1-02 by mouth ity of capsule 11:38: at [place] [address] bedtime. Medical Branch ALPRAZolam 2022-0 Yes [id number] .25mg Take 0.25 [facility] 0.25 mg 1-02 mg by ity of tablet 11:38: mouth at [place] [address] bedtime as Medical needed. Branch pregabalin 2022-0 Yes 50mg Take 50 mg U nivers 50 mg 1-02 by mouth ity of capsule 11:38: at [place] [address] bedtime. Medical Branch ALPRAZolam 2022-0 Yes [id number] .25mg Take 0.25 [facility] 0.25 mg 1-02 mg by ity of tablet 11:38: mouth at [place] [address] bedtime as Medical needed. Branch pregabalin 2022-0 Yes 50mg Take 50 mg U nivers 50 mg 1-02 by mouth ity of capsule 11:38: at [place] [address] bedtime. Medical Branch ALPRAZolam 2022-0 Yes [id number] .25mg Take 0.25 [facility] 0.25 mg 1-02 mg by ity of tablet 11:38: mouth at [place] [address] bedtime as Medical needed. Branch pregabalin 2022-0 Yes 50mg Take 50 mg U nivers 50 mg 1-02 by mouth ity of capsule 11:38: at [place] [address] bedtime. Medical Branch ALPRAZolam 2022-0 Yes [id number] .25mg Take 0.25 [facility] 0.25 mg 1-02 mg by ity of tablet 11:38: mouth at [place] [address] bedtime as Medical needed. Branch ALPRAZolam 2022-0 Yes [id number] .25mg Take 0.25 [facility] 0.25 mg 1-02 mg by ity of tablet 11:38: mouth at [place] 06 bedtime as Medical needed. Branch ALPRAZolam 2022-0 Yes [id number] .25mg Take 0.25 [facility] 0.25 mg 1-02 mg by ity of tablet 11:38: mouth at [place] [address] bedtime as Medical needed. Branch ALPRAZolam Yes [id number] .25mg Take 0.25 [facility] 0.25 mg 1-02 mg by ity of tablet 11:38: mouth at [place] 06 bedtime as Medical needed. Branch ALPRAZolam Yes [id number] .25mg Take 0.25 [facility] 0.25 mg 1-02 mg by ity of tablet 11:38: mouth at [place] 06 bedtime as Medical needed. Branch ALPRAZolam Yes [id number] .25mg Take 0.25 [facility] 0.25 mg 1-02 mg by ity of tablet 11:38: mouth at [place] 06 bedtime as Medical needed. Branch ALPRAZolam Yes [id number] .25mg Take 0.25 [facility] 0.25 mg 1-02 mg by ity of tablet 11:38: mouth at [place] 06 bedtime as Medical needed. Branch ALPRAZolam Yes [id number] .25mg Take 0.25 [facility] 0.25 mg 1-02 mg by ity of tablet 11:38: mouth at [place] 06 bedtime as Medical needed. Branch ALPRAZolam Yes [id number] .25mg Take 0.25 [facility] 0.25 mg 1-02 mg by ity of tablet 11:38: mouth at [place] 06 bedtime as Medical needed. Branch ALPRAZolam Yes [id number] .25mg Take 0.25 [facility] 0.25 mg 1-02 mg by ity of tablet 11:38: mouth at [place] 06 bedtime as Medical needed. Branch ALPRAZolam Yes [id number] .25mg Take 0.25 [facility] 0.25 mg 1-02 mg by ity of tablet 11:38: mouth at [place] 06 bedtime as Medical needed. Branch ALPRAZolam Yes [id number] .25mg Take 0.25 [facility] 0.25 mg 1-02 mg by ity of tablet 11:38: mouth at [place] 06 bedtime as Medical needed. Branch ALPRAZolam Yes [id number] .25mg Take 0.25 [facility] 0.25 mg 1-02 mg by ity of tablet 11:38: mouth at [place] 06 bedtime as Medical needed. Branch ALPRAZolam Yes [id number] .25mg Take 0.25 [facility] 0.25 mg -02 mg by ity of tablet 11:38: mouth at [place] 06 bedtime as Medical needed. Branch esomeprazol 2022- No 20mg Take 20 mg [facility] e 20 mg 09-26 by mouth 2 ity o f capsule 10:09: 00:00 (two) [place] 08 :00 times Medical daily Branch before breakfast and dinner. esomeprazol 2022- No 20mg Take 20 mg [facility] e 20 mg 09-26 by mouth 2 ity o f capsule 10:09: 00:00 (two) [place] 08 :00 times Medical daily Branch before breakfast and dinner. esomeprazol 2022- No 20mg Take 20 mg [facility] e 20 mg 09-26 by mouth 2 ity o f capsule 10:09: 00:00 (two) [place] 08 :00 times Medical daily Branch before breakfast and dinner. esomeprazol 2022- No 20mg Take 20 mg [facility] e 20 mg 09-26 by mouth 2 ity o f capsule 10:09: 00:00 (two) [place] 08 :00 times Medical daily Branch before breakfast and dinner. esomeprazol 2022- No 20mg Take 20 mg [facility] e 20 mg 09-26 by mouth 2 ity o f capsule 10:09: 00:00 (two) [place] 08 :00 times Medical daily Branch before breakfast and dinner. LORazepam 2022- No .5mg 0.5 mg, [facility] ers (ATIVAN) 09-26 Slow IV ity of injection 06:45: 06:00 Push, [place] 0.5 mg 00 :00 ONCE, 1 Medical dose, On Branch 09/26/22 at 0045, Routine phenoL 1.4 Yes [id number] 1{spray Take 1 [facility] % spray 09-26 } [place] by ity of 00:00: mouth as [place] 00 needed for Medical Sore Branch throat. proMETHazin 2022- Yes [id number] 25mg Take 1 [facility] e 25 mg 09-26 tablet by ity of tablet 00:00: mouth [place] 00 every 4 Medical (four) Branch hours as needed for Nausea and Vomiting (N/V). phenoL 1.4 2022-0 Yes [id number] 1{spray Take 1 [facility] % spray 1-02 } [place] by ity of 00:00: mouth as [place] 00 needed for Medical Sore Branch throat. proMETHazin 2022-0 Yes [id number] 25mg Take 1 [facility] e 25 mg 1-02 tablet by ity of tablet 00:00: mouth [place] 00 every 4 Medical (four) Branch hours as needed for Nausea and Vomiting (N/V). phenoL 1.4 2022-0 Yes [id number] 1{spray Take 1 [facility] % spray 1-02 } [place] by ity of 00:00: mouth as [place] 00 needed for Medical Sore Branch throat. proMETHazin 2022-0 Yes [id number] 25mg Take 1 [facility] e 25 mg 1-02 tablet by ity of tablet 00:00: mouth [place] 00 every 4 Medical (four) Branch hours as needed for Nausea and Vomiting (N/V). phenoL 1.4 2022- Yes [id number] 1{spray Take 1 [facility] % spray 1-02 } [place] by ity of 00:00: mouth as [place] 00 needed for Medical Sore Branch throat. proMETHazin 0 Yes [id number] 25mg Take 1 [facility] e 25 mg 1-02 tablet by ity of tablet 00:00: mouth [place] 00 every 4 Medical (four) Branch hours as needed for Nausea and Vomiting (N/V). phenoL 1.4 2022- Yes [id number] 1{spray Take 1 [facility] % spray 1-02 } [place] by ity of 00:00: mouth as [place] 00 needed for Medical Sore Branch throat. proMETHazin 2022-0 Yes [id number] 25mg Take 1 [facility] e 25 mg 1-02 tablet by ity of tablet 00:00: mouth [place] 00 every 4 Medical (four) Branch hours as needed for Nausea and Vomiting (N/V). phenoL 1.4 2022-0 Yes [id number] 1{spray Take 1 [facility] % spray 1-02 } [place] by ity of 00:00: mouth as [place] 00 needed for Medical Sore Branch throat. proMETHazin 2022-0 Yes [id number] 25mg Take 1 [facility] e 25 mg 1-02 tablet by ity of tablet 00:00: mouth [place] 00 every 4 Medical (four) Branch hours as needed for Nausea and Vomiting (N/V). phenoL 1.4 2022-0 Yes [id number] 1{spray Take 1 [facility] % spray 1-02 } [place] by ity of 00:00: mouth as [place] 00 needed for Medical Sore Branch throat. proMETHazin 2022-0 Yes [id number] 25mg Take 1 [facility] e 25 mg 1-02 tablet by ity of tablet 00:00: mouth [place] 00 every 4 Medical (four) Branch hours as needed for Nausea and Vomiting (N/V). phenoL 1.4 2022- Yes [id number] 1{spray Take 1 [facility] % spray 1-02 } [place] by ity of 00:00: mouth as [place] 00 needed for Medical Sore Branch throat. proMETHazin 2022-0 Yes [id number] 25mg Take 1 [facility] e 25 mg 1-02 tablet by ity of tablet 00:00: mouth [place] 00 every 4 Medical (four) Branch hours as needed for Nausea and Vomiting (N/V). phenoL 1.4 2022- Yes [id number] 1{spray Take 1 [facility] % spray 1-02 } [place] by ity of 00:00: mouth as [place] 00 needed for Medical Sore Branch throat. proMETHazin 2022-0 Yes [id number] 25mg Take 1 [facility] e 25 mg 1-02 tablet by ity of tablet 00:00: mouth [place] 00 every 4 Medical (four) Branch hours as needed for Nausea and Vomiting (N/V). phenoL 1.4 2022- Yes [id number] 1{spray Take 1 [facility] % spray 1-02 } [place] by ity of 00:00: mouth as [place] 00 needed for Medical Sore Branch throat. proMETHazin 2022-0 Yes [id number] 25mg Take 1 [facility] e 25 mg 1-02 tablet by ity of tablet 00:00: mouth [place] 00 every 4 Medical (four) Branch hours as needed for Nausea and Vomiting (N/V). phenoL 1.4 2022-0 Yes [id number] 1{spray Take 1 [facility] % spray 1-02 } [place] by ity of 00:00: mouth as [place] 00 needed for Medical Sore Branch throat. proMETHazin 2022-0 Yes [id number] 25mg Take 1 [facility] e 25 mg 1-02 tablet by ity of tablet 00:00: mouth [place] 00 every 4 Medical (four) Branch hours as needed for Nausea and Vomiting (N/V). phenoL 1.4 2022-0 Yes [id number] 1{spray Take 1 [facility] % spray 1-02 } [place] by ity of 00:00: mouth as [place] 00 needed for Medical Sore Branch throat. proMETHazin 2022-0 Yes [id number] 25mg Take 1 [facility] e 25 mg 1-02 tablet by ity of tablet 00:00: mouth [place] 00 every 4 Medical (four) Branch hours as needed for Nausea and Vomiting (N/V). phenoL 1.4 2022-0 Yes [id number] 1{spray Take 1 [facility] % spray 1-02 } [place] by ity of 00:00: mouth as [place] 00 needed for Medical Sore Branch throat. proMETHazin 2022-0 Yes [id number] 25mg Take 1 [facility] e 25 mg 1-02 tablet by ity of tablet 00:00: mouth [place] 00 every 4 Medical (four) Branch hours as needed for Nausea and Vomiting (N/V). phenoL 1.4 2022-0 Yes [id number] 1{spray Take 1 [facility] % spray 1-02 } [place] by ity of 00:00: mouth as [place] 00 needed for Medical Sore Branch throat. proMETHazin 2022-0 Yes [id number] 25mg Take 1 [facility] e 25 mg 1-02 tablet by ity of tablet 00:00: mouth [place] 00 every 4 Medical (four) Branch hours as needed for Nausea and Vomiting (N/V). phenoL 1.4 2022-0 Yes [id number] 1{spray Take 1 [facility] % spray 1-02 } [place] by ity of 00:00: mouth as [place] 00 needed for Medical Sore Branch throat. proMETHazin 2022-0 Yes [id number] 25mg Take 1 [facility] e 25 mg 1-02 tablet by ity of tablet 00:00: mouth [place] 00 every 4 Medical (four) Branch hours as needed for Nausea and Vomiting (N/V). phenoL 1.4 2022-0 Yes [id number] 1{spray Take 1 [facility] % spray 1-02 } [place] by ity of 00:00: mouth as [place] 00 needed for Medical Sore Branch throat. proMETHazin 2022-0 Yes [id number] 25mg Take 1 [facility] e 25 mg 1-02 tablet by ity of tablet 00:00: mouth [place] 00 every 4 Medical (four) Branch hours as needed for Nausea and Vomiting (N/V). phenoL 1.4 2022-0 Yes [id number] 1{spray Take 1 [facility] % spray 1-02 } [place] by ity of 00:00: mouth as [place] 00 needed for Medical Sore Branch throat. proMETHazin Yes [id number] 25mg Take 1 [facility] e 25 mg 1-02 tablet by ity of tablet 00:00: mouth [place] 00 every 4 Medical (four) Branch hours as needed for Nausea and Vomiting (N/V). phenoL 1.4 2022- Yes [id number] 1{spray Take 1 [facility] % spray 1-02 } [place] by ity of 00:00: mouth as [place] 00 needed for Medical Sore Branch throat. proMETHazin Yes [id number] 25mg Take 1 [facility] e 25 mg 1-02 tablet by ity of tablet 00:00: mouth [place] 00 every 4 Medical (four) Branch hours as needed for Nausea and Vomiting (N/V). phenoL 1.4 2022- Yes [id number] 1{spray Take 1 [facility] % spray 1-02 } [place] by ity of 00:00: mouth as [place] 00 needed for Medical Sore Branch throat. proMETHazin Yes [id number] 25mg Take 1 [facility] e 25 mg 1-02 tablet by ity of tablet 00:00: mouth [place] 00 every 4 Medical (four) Branch hours as needed for Nausea and Vomiting (N/V). phenoL 1.4 2022- Yes [id number] 1{spray Take 1 [facility] % spray 1-02 } [place] by ity of 00:00: mouth as [place] 00 needed for Medical Sore Branch throat. proMETHazin Yes [id number] 25mg Take 1 [facility] e 25 mg 1-02 tablet by ity of tablet 00:00: mouth [place] 00 every 4 Medical (four) Branch hours as needed for Nausea and Vomiting (N/V). phenoL 1.4 2022-0 Yes [id number] 1{spray Take 1 [facility] % spray 1-02 } [place] by ity of 00:00: mouth as [place] 00 needed for Medical Sore Branch throat. proMETHazin 2023-0 Yes [id number] 25mg Take 1 [facility] e 25 mg 1-02 tablet by ity of tablet 00:00: mouth [place] 00 every 4 Medical (four) Branch hours as needed for Nausea and Vomiting (N/V). phenoL 1.4 2022-0 Yes [id number] 1{spray Take 1 [facility] % spray 1-02 } [place] by ity of 00:00: mouth as [place] 00 needed for Medical Sore Branch throat. proMETHazin 2022-0 Yes [id number] 25mg Take 1 [facility] e 25 mg 1-02 tablet by ity of tablet 00:00: mouth [place] 00 every 4 Medical (four) Branch hours as needed for Nausea and Vomiting (N/V). proMETHazin 2022-0 Yes [id number] 25mg Take 1 [facility] e 25 mg 1-02 tablet by ity of tablet 00:00: mouth [place] 00 every 4 Medical (four) Branch hours as needed for Nausea and Vomiting (N/V). proMETHazin 2022-0 Yes [id number] 25mg Take 1 [facility] e 25 mg 1-02 tablet by ity of tablet 00:00: mouth [place] 00 every 4 Medical (four) Branch hours as needed for Nausea and Vomiting (N/V). proMETHazin 2022-0 Yes [id number] 25mg Take 1 [facility] e 25 mg 1-02 tablet by ity of tablet 00:00: mouth [place] 00 every 4 Medical (four) Branch hours as needed for Nausea and Vomiting (N/V). proMETHazin 2022-0 Yes [id number] 25mg Take 1 [facility] e 25 mg 1-02 tablet by ity of tablet 00:00: mouth [place] 00 every 4 Medical (four) Branch hours as needed for Nausea and Vomiting (N/V). proMETHazin 2022-0 Yes [id number] 25mg Take 1 [facility] e 25 mg 1-02 tablet by ity of tablet 00:00: mouth [place] 00 every 4 Medical (four) Branch hours as needed for Nausea and Vomiting (N/V). proMETHazin 2022-0 Yes [id number] 25mg Take 1 [facility] e 25 mg 1-02 tablet by ity of tablet 00:00: mouth [place] 00 every 4 Medical (four) Branch hours as needed for Nausea and Vomiting (N/V). proMETHazin 2023-0 Yes [id number] 25mg Take 1 [facility] e 25 mg 1-02 tablet by ity of tablet 00:00: mouth [place] 00 every 4 Medical (four) Branch hours as needed for Nausea and Vomiting (N/V). proMETHazin 2023-0 Yes [id number] 25mg Take 1 [facility] e 25 mg 1-02 tablet by ity of tablet 00:00: mouth [place] 00 every 4 Medical (four) Branch hours as needed for Nausea and Vomiting (N/V). proMETHazin 2023-0 Yes [id number] 25mg Take 1 [facility] e 25 mg 1-02 tablet by ity of tablet 00:00: mouth [place] 00 every 4 Medical (four) Branch hours as needed for Nausea and Vomiting (N/V). proMETHazin 2023-0 Yes [id number] 25mg Take 1 [facility] e 25 mg 1-02 tablet by ity of tablet 00:00: mouth [place] 00 every 4 Medical (four) Branch hours as needed for Nausea and Vomiting (N/V). proMETHazin 3-0 Yes [id number] 25mg Take 1 [facility] e 25 mg 1-02 tablet by ity of tablet 00:00: mouth [place] 00 every 4 Medical (four) Branch hours as needed for Nausea and Vomiting (N/V). proMETHazin 3-0 Yes [id number] 25mg Take 1 [facility] e 25 mg 1-02 tablet by ity of tablet 00:00: mouth [place] 00 every 4 Medical (four) Branch hours as needed for Nausea and Vomiting (N/V). proMETHazin 2023-0 Yes [id number] 25mg Take 1 [facility] e 25 mg 1-02 tablet by ity of tablet 00:00: mouth [place] 00 every 4 Medical (four) Branch hours as needed for Nausea and Vomiting (N/V). proMETHazin 2023-0 Yes [id number] 25mg Take 1 [facility] e 25 mg 1-02 tablet by ity of tablet 00:00: mouth [place] 00 every 4 Medical (four) Branch hours as needed for Nausea and Vomiting (N/V). proMETHazin 2023-0 Yes [id number] 25mg Take 1 [facility] e 25 mg 1-02 tablet by ity of tablet 00:00: mouth [place] 00 every 4 Medical (four) Branch hours as needed for Nausea and Vomiting (N/V). proMETHazin 2023-0 Yes [id number] 25mg Take 1 [facility] e 25 mg 1-02 tablet by ity of tablet 00:00: mouth [place] 00 every 4 Medical (four) Branch hours as needed for Nausea and Vomiting (N/V). proMETHazin 2023-0 Yes [id number] 25mg Take 1 [facility] e 25 mg 1-02 tablet by ity of tablet 00:00: mouth [place] 00 every 4 Medical (four) Branch hours as needed for Nausea and Vomiting (N/V). proMETHazin 2023-0 Yes [id number] 25mg Take 1 [facility] e 25 mg 1-02 tablet by ity of tablet 00:00: mouth [place] 00 every 4 Medical (four) Branch hours as needed for Nausea and Vomiting (N/V). proMETHazin 2023-0 Yes [id number] 25mg Take 1 [facility] e 25 mg 1-02 tablet by ity of tablet 00:00: mouth [place] 00 every 4 Medical (four) Branch hours as needed for Nausea and Vomiting (N/V). proMETHazin 3-0 Yes [id number] 25mg Take 1 [facility] e 25 mg 1-02 tablet by ity of tablet 00:00: mouth [place] 00 every 4 Medical (four) Branch hours as needed for Nausea and Vomiting (N/V). proMETHazin 3-0 Yes [id number] 25mg Take 1 [facility] e 25 mg 1-02 tablet by ity of tablet 00:00: mouth [place] 00 every 4 Medical (four) Branch hours as needed for Nausea and Vomiting (N/V). proMETHazin 2023-0 Yes [id number] 25mg Take 1 [facility] e 25 mg 1-02 tablet by ity of tablet 00:00: mouth [place] 00 every 4 Medical (four) Branch hours as needed for Nausea and Vomiting (N/V). proMETHazin 2023-0 Yes [id number] 25mg Take 1 [facility] e 25 mg 1-02 tablet by ity of tablet 00:00: mouth [place] 00 every 4 Medical (four) Branch hours as needed for Nausea and Vomiting (N/V). proMETHazin 2023-0 Yes [id number] 25mg Take 1 [facility] e 25 mg 1-02 tablet by ity of tablet 00:00: mouth [place] 00 every 4 Medical (four) Branch hours as needed for Nausea and Vomiting (N/V). proMETHazin 2023-0 Yes [id number] 25mg Take 1 [facility] e 25 mg 1-02 tablet by ity of tablet 00:00: mouth [place] 00 every 4 Medical (four) Branch hours as needed for Nausea and Vomiting (N/V). proMETHazin 2023-0 Yes [id number] 25mg Take 1 [facility] e 25 mg 1-02 tablet by ity of tablet 00:00: mouth [place] 00 every 4 Medical (four) Branch hours as needed for Nausea and Vomiting (N/V). proMETHazin 2023-0 Yes [id number] 25mg Take 1 [facility] e 25 mg 1-02 tablet by ity of tablet 00:00: mouth [place] 00 every 4 Medical (four) Branch hours as needed for Nausea and Vomiting (N/V). proMETHazin 2023-0 Yes [id number] 25mg Take 1 [facility] e 25 mg 1-02 tablet by ity of tablet 00:00: mouth [place] 00 every 4 Medical (four) Branch hours as needed for Nausea and Vomiting (N/V). proMETHazin 2023-0 Yes [id number] 25mg Take 1 [facility] e 25 mg 1-02 tablet by ity of tablet 00:00: mouth [place] 00 every 4 Medical (four) Branch hours as needed for Nausea and Vomiting (N/V). proMETHazin 2023-0 Yes [id number] 25mg Take 1 [facility] e 25 mg 1-02 tablet by ity of tablet 00:00: mouth [place] 00 every 4 Medical (four) Branch hours as needed for Nausea and Vomiting (N/V). proMETHazin 2023-0 Yes [id number] 25mg Take 1 [facility] e 25 mg 1-02 tablet by ity of tablet 00:00: mouth [place] 00 every 4 Medical (four) Branch hours as needed for Nausea and Vomiting (N/V). proMETHazin 2023-0 Yes [id number] 25mg Take 1 [facility] e 25 mg 1-02 tablet by ity of tablet 00:00: mouth [place] 00 every 4 Medical (four) Branch hours as needed for Nausea and Vomiting (N/V). proMETHazin 2023-0 Yes [id number] 25mg Take 1 [facility] e 25 mg 1-02 tablet by ity of tablet 00:00: mouth [place] 00 every 4 Medical (four) Branch hours as needed for Nausea and Vomiting (N/V). proMETHazin Yes [id number] 25mg Take 1 [facility] e 25 mg 1-02 tablet by ity of tablet 00:00: mouth [place] 00 every 4 Medical (four) Branch hours as needed for Nausea and Vomiting (N/V). proMETHazin 0 Yes [id number] 25mg Take 1 [facility] e 25 mg 1-02 tablet by ity of tablet 00:00: mouth [place] 00 every 4 Medical (four) Branch hours as needed for Nausea and Vomiting (N/V). phenoL 1.4 2022- No [id number] 1{spray Take 1 Univers % spray 09-2624 } [place] by ity of 00:00: 00:00 mouth as [place] 00 :00 needed for Medical Sore Branch throat. phenoL 1.4 2022- No [id number] 1{spray Take 1 Univers % spray 09-2624 } [place] by ity of 00:00: 00:00 mouth as [place] 00 :00 needed for Medical Sore Branch throat. phenoL 1.4 2022- No [id number] 1{spray Take 1 Univers % spray 09-2624 } [place] by ity of 00:00: 00:00 mouth as [place] 00 :00 needed for Medical Sore Branch throat. predniSONE 2022-2022- No [id number] 40mg Take 2 Univers 20 mg 09-26-05 tablets by ity of tablet 00:00: 05:59 mouth in [place] 00 :00 the Medical morning Branch for 2 days. predniSONE 2022-2022- No [id number] 40mg Take 2 Univers 20 mg 09-26-05 tablets by ity of tablet 00:00: 05:59 mouth in [place] 00 :00 the Medical morning Branch for 2 days. proMETHazin Yes 25mg 25 mg, IV U nivers e 1- Piggyback, ity of (PHENERGAN) 15:00: Q6HPRN, [place] 25 mg in 00 Starting Medical NaCl 0.9% on [place] Branch (NS) 50 mL 09/25/22 at IV 0900, piggyback Until Discontinu ed, Routine, Nausea and Vomiting (N/V) FENTanyl PF 2022-2022- No 12.5ug 12.5 mcg, Univers (SUBLIMAZE 09-25 Slow IV ity o f (PF)) 06:00: 05:59 Push, Q6H, [place] injection 00 :00 4 doses, Medica l 12.5 mcg First dose Branc h on 09/25/22 at 0000, Last dose on 09/25/22 at 1800, Routine acetaminoph 2022-0 Yes 1{tbl} 1 tablet, Univers en-codeine 09-25 Oral, ity of (TYLENOL 05:32: Q4HPRN, [place] #3) 300-30 58 Starting Medic al mg tablet 1 on [facility] Branch tablet 09/24/22 at 2332, Until Discontinu ed, Routine, Pain (scale 4-6), (pt states that she has no allergy) DULoxetine 2022-0 Yes 30mg 30 mg, Unive rs (CYMBALTA) 09-25 Oral, QHS, ity of capsule 30 03:00: First dose [place] mg 00 (after Medical last Branch modificati on) on [facility] 09/24/22 at 2100, Until Discontinu ed, Routine pregabalin 2022-0 Yes 50mg 50 mg, Unive rs (LYRICA) 09-25 Oral, QHS, ity o f capsule 50 03:00: First dose [place] mg 00 on [facility] Medical 09/24/22 Branch at 2100, Until Discontinu ed, Routine nortriptyli 2022-0 Yes 50mg 50 mg, Univ ers ne 09-25 Oral, QHS, ity of (PAMELOR) 03:00: First dose [place] capsule 50 00 on [facility] Medical mg 09/24/22 Branch at 2100, Until Discontinu ed, Routine atorvastati 2022-0 Yes 80mg 80 mg, Univ ers n (LIPITOR) 09-25 Oral, QHS, it y of tablet 80 03:00: First dose [place] mg 00 on [facility] Medical 09/24/22 Branch at 2100, Until Discontinu ed, Routine methylPREDN 2022-0 2022- No 40mg 40 mg, Uni vers ISolone sod 09-25 Intravenou i ty of succ 02:00: 21:32 s, Q12H, [place] (SOLU-MEDRO 00 :38 First dose Me dical L (PF)) (after Branch injection last 40 mg modificati on) on 09/24/22 at 2000, Until Discontinu ed, 1 mL phenoL 2021-09 Yes 1{spray 1 [place], Univ ers (SORE } Oral, PRN, ity of THROAT 17:00: Starting [place] (PHENOL)) 26 on [facility] Medical 1.4 % spray 09/24/22 Bran ch bottle 1 at 1100, [place] Until Discontinu ed, Routine, Sore throat tiotropium 2021-09 Yes 18ug 18 mcg, Univ ers (SPIRIVA) Inhalation ity of inhalation 15:00: , DAILY, [place] 18 mcg 00 First dose Medical on [facility] Branch 09/24/22 at 0900, Until Discontinu ed digoxin 2021-09 Yes 125ug 125 mcg, Unive rs (LANOXIN) Oral, ity of tablet 125 15:00: DAILY, [place] mcg 00 First dose Medical on [facility] Branch 09/24/22 at 0900, Until Discontinu ed, Routine azithromyci 2021-09 No 250mg 250 mg, U nivers n 09-29 Oral, ity of (ZITHROMAX) 15:00: 14:59 DAILY, 5 [place] tablet 250 00 :00 doses, Medical mg First dose Branch on 09/24/22 at 0900, Last dose on Mon09/28/22 at 0900, GIGI
Re ason for Anti-Infec tive: Documented Infection< br>Documen aida Infection Site: Respirator y
Durat ion of Therapy: 7 days levETIRAcet 2021-09 Yes 1500mg 1,500 mg, Univers am (KEPPRA) Oral, ity of tablet 14:00: Q12H, [place] 1,500 mg 00 First dose Medic al on [facility] Branch 09/24/22 at 0800, Until Discontinu ed, Routine budesonide- 2021-09 Yes 2{puff} 2 Puff, Univers formoteroL Inhalation ity of (SYMBICORT) 14:00: , BID, [place] 160-4.5 00 First dose Medica l mcg/actuati on [facility] Branch on inhaler 09/24/22 2 Puff at 0800, Until Discontinu ed carvediloL 2021-09 Yes 25mg 25 mg, Unive rs (COREG) Oral, BID ity of tablet 25 14:00: MEALS, [place] mg 00 First dose Medical on [facility] Branch 09/24/22 at 0800, Until Discontinu ed, Routine apixaban 2021-09 Yes 5mg 5 mg, Univers (ELIQUIS) Oral, BID, ity of tablet 5 mg 14:00: First dose [place] 00 on [facility] Medical 09/24/22 Branch at 0800, Until Discontinu ed, Routine
Indicatio ns: Non-Valvul ar Atrial Fibrillati on pantoprazol 2021-09 No 40mg 40 mg, Uni vers e 09-26 Slow IV ity of (PROTONIX) 14:00: 16:16 Push, [place] injection 00 :59 Q12H, Medical 40 mg First dose Branch on [facility] 09/24/22 at 0800, Until Discontinu ed furosemide 2021-09 Yes 20mg 20 mg, Unive rs (LASIX) Oral, PRN, ity of tablet 20 10:46: Starting [place] mg 25 on [facility] 09/24/22 Branch at 0446, Until Discontinu ed, Routine, Nausea and Vomiting (N/V) benzonatate 2021-09 Yes 100mg 100 mg, Un austyn (TESSALON Oral, ity of PERLES) 10:45: Q8HPRN, [place] capsule 100 52 Starting Medi blane mg on [facility] Branch 09/24/22 at 0445, Until Discontinu ed, Routine, Cough ALPRAZolam 2021-09 Yes .25mg 0.25 mg, Un austyn (XANAX) Oral, ity of tablet 0.25 10:45: QHSPRN, [place] mg 02 Starting Medical on [facility] Branch 09/24/22 at 0445, Until Discontinu ed, Routine, Anxiety albuterol 2021-09 Yes 2{puff} 2 Puff, Un aust[facility] (VENTOLIN) Inhalation ity of inhaler 2 10:45: , Q6HPRN, [place] Puff 00 Starting Medical on [facility] Branch 09/24/22 at 0445, Until Discontinu ed, Routine, Wheezing, Shortness of Breath traZODone 2021-09 Yes 50mg 50 mg, Univer s (DESYREL) Oral, ity of tablet 50 10:44: QHSPRN, [place] mg 56 Starting Medical on Sat Branch 09/24/22 at 0444, Until Discontinu ed, Routine, Insomnia azithromyci 2021-09 No 250mg 250 mg, IV Univers n 09-24 Piggyback, ity of (ZITHROMAX) 06:00: 14:55 Q24H ABX, [place] 250 mg in 00 :32 5 doses, Medica l NaCl 0.9% First dose Bran ch (NS) 250 mL on Sat piggyback 09/24/22 at 0000, Last dose on Mon09/28/22 at 0000, Administer over 60 Minutes, 250 mL
Reas on for Anti-Infec tive: Documented Infection& lt;br>Docu mented Infection Site: Respirator y
Durat ion of Therapy: 7 days methylPREDN 2021-09 No 40mg 40 mg, Uni vers ISolone sod 09-24 Intravenou i ty of succ 06:00: 14:55 s, Q6H, [place] (SOLU-MEDRO 00 :54 First dose Me dical L (PF)) on Sat Branch injection 09/24/22 40 mg at 0000, Until Discontinu ed, 1 mL ipratropium 2021-09 No 3mL 3 mL, Univ ers -albuteroL 09-24 Inhalation it y of (DUONEB) 06:00: 10:52 , Q4H, [place] 0.5 mg-3 00 :42 First dose Medic al mg(2.5 mg on Sat Branch base)/3 mL 09/24/22 nebulizer at 0000, solution 3 Until mL Discontinu ed, Routine NaCl 0.9% 2021-09 No 100mL at 125 Univ ers (NS) IV 09-24 mL/hr, IV ity of infusion 03:45: 17:00 Infusion, [place] 100 mL 00 :36 CONTINUOUS Medical , Starting Branch on Mon09/23/22 at 2145, Until 09/24/22 at 1100, Routine ondansetron 2022-1 2023- No 4mg 4 mg, Slow Univers (ZOFRAN 2-31 09-25 IV Push, ity of (PF)) 03:15: 13:53 Q6HPRN, [place] injection 4 25 :42 Starting Medi blane mg on Fri Branch 09/23/22 at 2115, Until 09/25/22 at 0753, Routine, Nausea and Vomiting (N/V) acetaminoph 2021-09 Yes 650mg 650 mg, Un austyn en Oral, ity of (TYLENOL) 03:15: Q6HPRN, [place] tablet 650 17 Starting Medic al mg on Fri Branch 09/23/22 at 2115, Until Discontinu ed, Routine, Pain (scale 1-3) albuterol 2021-09- No 2{puff} 2 Puff, U nivers (VENTOLIN) 09-23 Inhalation it y of inhaler 2 23:30: 22:53 , ONCE, 1 [place] Puff 00 :00 dose, On Medical Fri Branch 09/23/22 at 1730, GIGI acetaminoph 2021-09- No 650mg 650 mg, U nivers en 09-23 Oral, ONCE ity of (TYLENOL) 23:30: 23:06 NOW, 1 [place] 160 mg/5 mL 00 :00 dose, On Medi blane oral liquid Fri Branch 650 mg 09/23/22 at 1730, Routine ALPRAZolam 2021-09 Yes [id number] .25mg Take 0.25 Univers 0.25 mg 2-16 mg by ity of tablet 18:25: mouth at [place] [address] bedtime as Medical needed. Branch pregabalin 2021-09 Yes 50mg Take 50 mg U nivers 50 mg 2-16 by mouth ity of capsule 18:25: at [place] [address] bedtime. Medical Branch esomeprazol 2021-09 Yes 20mg Take 20 mg Univers e 20 mg 2-16 by mouth 2 ity of capsule 18:25: (two) [place] [address] times Medical daily Branch before breakfast and dinner. ALPRAZolam 2021-09 Yes [id number] .25mg Take 0.25 Univers 0.25 mg 2-16 mg by ity of tablet 18:25: mouth at [place] [address] bedtime as Medical needed. Branch pregabalin 2021-09 Yes 50mg Take 50 mg U nivers 50 mg 2-16 by mouth ity of capsule 18:25: at [place] [address] bedtime. Medical Branch esomeprazol 2021-09 Yes 20mg Take 20 mg Univers e 20 mg 2-16 by mouth 2 ity of capsule 18:25: (two) [place] [address] times Medical daily Branch before breakfast and dinner. ALPRAZolam 2021-09 Yes [id number] .25mg Take 0.25 Univers 0.25 mg 2-16 mg by ity of tablet 18:25: mouth at [place] [address] bedtime as Medical needed. Branch pregabalin 2021-09 Yes 50mg Take 50 mg U nivers 50 mg 2-16 by mouth ity of capsule 18:25: at [place] [address] bedtime. Medical Branch esomeprazol 2021-09 Yes 20mg Take 20 mg Univers e 20 mg 2-16 by mouth 2 ity of capsule 18:25: (two) [place] [address] times Medical daily Branch before breakfast and dinner. ALPRAZolam 2021-09 Yes [id number] .25mg Take 0.25 Univers 0.25 mg 2-16 mg by ity of tablet 18:25: mouth at [place] [address] bedtime as Medical needed. Branch pregabalin 2021-09 Yes 50mg Take 50 mg U nivers 50 mg 2-16 by mouth ity of capsule 18:25: at [place] [address] bedtime. Medical Branch esomeprazol 2021-09 Yes 20mg Take 20 mg Univers e 20 mg 2-16 by mouth 2 ity of capsule 18:25: (two) [place] [address] times Medical daily Branch before breakfast and dinner. ALPRAZolam 2021-09 Yes [id number] .25mg Take 0.25 Univers 0.25 mg 2-16 mg by ity of tablet 18:25: mouth at [place] [address] bedtime as Medical needed. Branch pregabalin 2021-09 Yes 50mg Take 50 mg U nivers 50 mg 2-16 by mouth ity of capsule 18:25: at [place] [address] bedtime. Medical Branch esomeprazol 2021-09 Yes 20mg Take 20 mg Univers e 20 mg 2-16 by mouth 2 ity of capsule 18:25: (two) [place] [address] times Medical daily Branch before breakfast and dinner. rosuvastati 2021-09- No 10mg Take 10 mg Univers n 10 mg 2-16 12-16 by mouth ity of tablet 17:03: 00:00 at [place] 22 :00 bedtime. [facility] Branch rosuvastati 2021-09- No 10mg Take 10 mg Univers n 10 mg 2-16 12-16 by mouth ity of tablet 17:03: 00:00 at [place] 22 :00 bedtime. [facility] Branch rosuvastati 2021-09- No 10mg Take 10 mg Univers n 10 mg 2-16 12-16 by mouth ity of tablet 17:03: 00:00 at [place] 22 :00 bedtime. [facility] No 10mg Take 10 mg Univers n 10 mg 2-16 12-16 by mouth ity of tablet 17:03: 00:00 at [place] 22 :00 bedtime. [facility] rosuvastati 2021-09- No 10mg Take 10 mg Univers n 10 mg 2-16 12-16 by mouth ity of tablet 17:03: 00:00 at [place] 22 :00 bedtime. [facility] rosuvastati 2021-09- No 10mg Take 10 mg Univers n 10 mg 2-16 12-16 by mouth ity of tablet 17:03: 00:00 at [place] 22 :00 bedtime. [facility] Branch LORazepam 2021-09 No 1mg 1 mg, Slow U nivers (ATIVAN) -16 12-16 IV Push, ity of injection 1 16:15: 19:05 ONCE, 1 [place] mg 00 :00 dose, On Medical Fri Branch 09/09/22 at 1015, Routine levETIRAcet 2021-09- No [id number] 1500mg Take 2 Univers am 750 mg 2-16 06-15 tablets by ity of tablet 00:00: 04:59 mouth [place] 00 :00 every 12 Medical (twelve) Branch hours for 180 days. levETIRAcet 2021-09- No [id number] 1500mg Take 2 Univers am 750 mg 2-16 06-15 tablets by ity of tablet 00:00: 04:59 mouth [place] 00 :00 every 12 Medical (twelve) Branch hours for 180 days. levETIRAcet 2021-09- No [id number] 1500mg Take 2 Univers am 750 mg 2-16 06-15 tablets by ity of tablet 00:00: 04:59 mouth [place] 00 :00 every 12 Medical (twelve) Branch hours for 180 days. levETIRAcet 2021-09- No [id number] 1500mg Take 2 Univers am 750 mg 2-16 06-15 tablets by ity of tablet 00:00: 04:59 mouth [place] 00 :00 every 12 Medical (twelve) Branch hours for 180 days. levETIRAcet 2021-09- No [id number] 1500mg Take 2 Univers am 750 mg 2-16 06-15 tablets by ity of tablet 00:00: 04:59 mouth [place] 00 :00 every 12 Medical (twelve) Branch hours for 180 days. levETIRAcet 2021-09- No [id number] 1500mg Take 2 Univers am 750 mg 2-16 06-15 tablets by ity of tablet 00:00: 04:59 mouth [place] 00 :00 every 12 Medical (twelve) Branch hours for 180 days. levETIRAcet 2021-09- No [id number] 1500mg Take 2 Univers am 750 mg 2-16 06-15 tablets by ity of tablet 00:00: 04:59 mouth [place] 00 :00 every 12 Medical (twelve) Branch hours for 180 days. levETIRAcet 2021-09- No [id number] 1500mg Take 2 Univers am 750 mg 2-16 06-15 tablets by ity of tablet 00:00: 04:59 mouth [place] 00 :00 every 12 Medical (twelve) Branch hours for 180 days. levETIRAcet 2021-09- No [id number] 1500mg Take 2 Univers am 750 mg 2-16 06-15 tablets by ity of tablet 00:00: 04:59 mouth [place] 00 :00 every 12 Medical (twelve) Branch hours for 180 days. levETIRAcet 2021-09- No [id number] 1500mg Take 2 Univers am 750 mg 2-16 06-15 tablets by ity of tablet 00:00: 04:59 mouth [place] 00 :00 every 12 Medical (twelve) Branch hours for 180 days. levETIRAcet 2021-09- No [id number] 1500mg Take 2 Univers am 750 mg 2-16 06-15 tablets by ity of tablet 00:00: 04:59 mouth [place] 00 :00 every 12 Medical (twelve) Branch hours for 180 days. levETIRAcet 2021-09- No [id number] 1500mg Take 2 Univers am 750 mg 2-16 06-15 tablets by ity of tablet 00:00: 04:59 mouth [place] 00 :00 every 12 Medical (twelve) Branch hours for 180 days. levETIRAcet 2021-09- No [id number] 1500mg Take 2 Univers am 750 mg 2-16 06-15 tablets by ity of tablet 00:00: 04:59 mouth [place] 00 :00 every 12 Medical (twelve) Branch hours for 180 days. levETIRAcet 2021-09- No [id number] 1500mg Take 2 Univers am 750 mg 2-16 06-15 tablets by ity of tablet 00:00: 04:59 mouth [place] 00 :00 every 12 Medical (twelve) Branch hours for 180 days. levETIRAcet 2021-09- No [id number] 1500mg Take 2 Univers am 750 mg 2-16 06-15 tablets by ity of tablet 00:00: 04:59 mouth [place] 00 :00 every 12 Medical (twelve) Branch hours for 180 days. levETIRAcet 2021-09- No [id number] 1500mg Take 2 Univers am 750 mg 2-16 06-15 tablets by ity of tablet 00:00: 04:59 mouth [place] 00 :00 every 12 Medical (twelve) Branch hours for 180 days. levETIRAcet 2021-09- No [id number] 1500mg Take 2 Univers am 750 mg 2-16 06-15 tablets by ity of tablet 00:00: 04:59 mouth [place] 00 :00 every 12 Medical (twelve) Branch hours for 180 days. levETIRAcet 2021-09- No [id number] 1500mg Take 2 Univers am 750 mg 2-16 06-15 tablets by ity of tablet 00:00: 04:59 mouth [place] 00 :00 every 12 Medical (twelve) Branch hours for 180 days. levETIRAcet 2021-09- No [id number] 1500mg Take 2 Univers am 750 mg 2-16 06-15 tablets by ity of tablet 00:00: 04:59 mouth [place] 00 :00 every 12 Medical (twelve) Branch hours for 180 days. levETIRAcet 2021-09- No [id number] 1500mg Take 2 Univers am 750 mg 2-16 06-15 tablets by ity of tablet 00:00: 04:59 mouth [place] 00 :00 every 12 Medical (twelve) Branch hours for 180 days. levETIRAcet 2021-09- No [id number] 1500mg Take 2 Univers am 750 mg 2-16 06-15 tablets by ity of tablet 00:00: 04:59 mouth [place] 00 :00 every 12 Medical (twelve) Branch hours for 180 days. levETIRAcet 2021-09- No [id number] 1500mg Take 2 Univers am 750 mg 2-16 06-15 tablets by ity of tablet 00:00: 04:59 mouth [place] 00 :00 every 12 Medical (twelve) Branch hours for 180 days. levETIRAcet 2021-09- No [id number] 1500mg Take 2 Univers am 750 mg 2-16 06-15 tablets by ity of tablet 00:00: 04:59 mouth [place] 00 :00 every 12 Medical (twelve) Branch hours for 180 days. levETIRAcet 2021-09- No [id number] 1500mg Take 2 Univers am 750 mg 2-16 06-15 tablets by ity of tablet 00:00: 04:59 mouth [place] 00 :00 every 12 Medical (twelve) Branch hours for 180 days. levETIRAcet 2021-09- No [id number] 1500mg Take 2 Univers am 750 mg 2-16 06-15 tablets by ity of tablet 00:00: 04:59 mouth [place] 00 :00 every 12 Medical (twelve) Branch hours for 180 days. levETIRAcet 2021-09- No [id number] 1500mg Take 2 Univers am 750 mg 2-16 06-15 tablets by ity of tablet 00:00: 04:59 mouth [place] 00 :00 every 12 Medical (twelve) Branch hours for 180 days. levETIRAcet 2021-09- No [id number] 1500mg Take 2 Univers am 750 mg 2-16 06-15 tablets by ity of tablet 00:00: 04:59 mouth [place] 00 :00 every 12 Medical (twelve) Branch hours for 180 days. levETIRAcet 2021-09- No [id number] 1500mg Take 2 Univers am 750 mg 2-16 06-15 tablets by ity of tablet 00:00: 04:59 mouth [place] 00 :00 every 12 Medical (twelve) Branch hours for 180 days. levETIRAcet 2021-09- No [id number] 1500mg Take 2 Univers am 750 mg 2-16 06-15 tablets by ity of tablet 00:00: 04:59 mouth [place] 00 :00 every 12 Medical (twelve) Branch hours for 180 days. levETIRAcet 2021-09- No [id number] 1500mg Take 2 Univers am 750 mg 2-16 06-15 tablets by ity of tablet 00:00: 04:59 mouth [place] 00 :00 every 12 Medical (twelve) Branch hours for 180 days. levETIRAcet 2021-09- No [id number] 1500mg Take 2 Univers am 750 mg 2-16 06-15 tablets by ity of tablet 00:00: 04:59 mouth [place] 00 :00 every 12 Medical (twelve) Branch hours for 180 days. levETIRAcet 2021-09- No [id number] 1500mg Take 2 Univers am 750 mg 2-16 06-15 tablets by ity of tablet 00:00: 04:59 mouth [place] 00 :00 every 12 Medical (twelve) Branch hours for 180 days. levETIRAcet 2021-09- No [id number] 1500mg Take 2 Univers am 750 mg 2-16 06-15 tablets by ity of tablet 00:00: 04:59 mouth [place] 00 :00 every 12 Medical (twelve) Branch hours for 180 days. levETIRAcet 2021-09- No [id number] 1500mg Take 2 Univers am 750 mg 2-16 06-15 tablets by ity of tablet 00:00: 04:59 mouth [place] 00 :00 every 12 Medical (twelve) Branch hours for 180 days. levETIRAcet 2021-09- No [id number] 1500mg Take 2 Univers am 750 mg 2-16 06-15 tablets by ity of tablet 00:00: 04:59 mouth [place] 00 :00 every 12 Medical (twelve) Branch hours for 180 days. levETIRAcet 2021-09- No [id number] 1500mg Take 2 Univers am 750 mg 2-16 06-15 tablets by ity of tablet 00:00: 04:59 mouth [place] 00 :00 every 12 Medical ([facility]) Branch hours for 180 days. levETIRAcet 2021-09- No [id number] 1500mg Take 2 Univers am 750 mg 2-16 06-15 tablets by ity of tablet 00:00: 04:59 mouth [place] 00 :00 every 12 Medical ([facility]) Branch hours for 180 days. levETIRAcet 2021-09- No [id number] 1500mg Take 2 Univers am 750 mg 2-16 06-15 tablets by ity of tablet 00:00: 04:59 mouth [place] 00 :00 every 12 Medical ([facility]) Branch hours for 180 days. levETIRAcet 2021-09- No [id number] 1500mg Take 2 Univers am 750 mg 2-16 06-15 tablets by ity of tablet 00:00: 04:59 mouth [place] 00 :00 every 12 [facility] ([facility]) Branch hours for 180 days. levETIRAcet 2021-09- No [id number] 1500mg Take 2 Univers am 750 mg 2-16 06-15 tablets by ity of tablet 00:00: 04:59 mouth [place] 00 :00 every 12 Medical ([facility]) Branch hours for 180 days. levETIRAcet 2021-09- No [id number] 1500mg Take 2 Univers am 750 mg 2-16 06-15 tablets by ity of tablet 00:00: 04:59 mouth [place] 00 :00 every 12 [facility] ([facility]) Branch hours for 180 days. levETIRAcet 2021-09- No [id number] 1500mg Take 2 Univers am 750 mg 2-16 06-15 tablets by ity of tablet 00:00: 04:59 mouth [place] 00 :00 every 12 Medical (twelve) Branch hours for 180 days. levETIRAcet 2021-09- No [id number] 1500mg Take 2 Univers am 750 mg 2-16 06-15 tablets by ity of tablet 00:00: 04:59 mouth [place] 00 :00 every 12 Medical (twelve) Branch hours for 180 days. levETIRAcet 2021-09- No [id number] 1500mg Take 2 Univers am 750 mg 2-16 06-15 tablets by ity of tablet 00:00: 04:59 mouth [place] 00 :00 every 12 Medical (twelve) Branch hours for 180 days. levETIRAcet 2021-09- No [id number] 1500mg Take 2 [facility] am 750 mg 2-16 06-15 tablets by ity of tablet 00:00: 04:59 mouth [place] 00 :00 every 12 Medical (twelve) Branch hours for 180 days. levETIRAcet 2021-09- No [id number] 1500mg Take 2 [facility] am 750 mg 2-16 06-15 tablets by ity of tablet 00:00: 04:59 mouth [place] 00 :00 every 12 Medical (twelve) Branch hours for 180 days. levETIRAcet 2021-09- No [id number] 1500mg Take 2 Univers am 750 mg 2-16 06-15 tablets by ity of tablet 00:00: 04:59 mouth [place] 00 :00 every 12 Medical (twelve) Branch hours for 180 days. levETIRAcet 2021-09- No [id number] 1500mg Take 2 [facility] am 750 mg 2-16 06-15 tablets by ity of tablet 00:00: 04:59 mouth [place] 00 :00 every 12 Medical (twelve) Branch hours for 180 days. levETIRAcet 2021-09- No [id number] 1500mg Take 2 [facility] am 750 mg 2-16 06-15 tablets by ity of tablet 00:00: 04:59 mouth [place] 00 :00 every 12 Medical (twelve) Branch hours for 180 days. levETIRAcet 2021-09- No [id number] 1500mg Take 2 [facility] am 750 mg 2-16 06-15 tablets by ity of tablet 00:00: 04:59 mouth [place] 00 :00 every 12 Medical (twelve) Branch hours for 180 days. levETIRAcet 2021-09- No [id number] 1500mg Take 2 [facility] am 750 mg 2-16 06-15 tablets by ity of tablet 00:00: 04:59 mouth [place] 00 :00 every 12 Medical (twelve) Branch hours for 180 days. levETIRAcet 2021-09- No [id number] 1500mg Take 2 [facility] am 750 mg 2-16 06-15 tablets by ity of tablet 00:00: 04:59 mouth [place] 00 :00 every 12 Medical (twelve) Branch hours for 180 days. levETIRAcet 2021-09- No [id number] 1500mg Take 2 [facility] am 750 mg 2-16 06-15 tablets by ity of tablet 00:00: 04:59 mouth [place] 00 :00 every 12 Medical (twelve) Branch hours for 180 days. levETIRAcet 2021-09- No [id number] 1500mg Take 2 [facility] am 750 mg 2-16 06-15 tablets by ity of tablet 00:00: 04:59 mouth [place] 00 :00 every 12 Medical (twelve) Branch hours for 180 days. levETIRAcet 2021-09- No [id number] 1500mg Take 2 [facility] am 750 mg 2-16 06-15 tablets by ity of tablet 00:00: 04:59 mouth [place] 00 :00 every 12 Medical (twelve) Branch hours for 180 days. levETIRAcet 2021-09- No [id number] 1500mg Take 2 [facility] am 750 mg 2-16 06-15 tablets by ity of tablet 00:00: 04:59 mouth [place] 00 :00 every 12 Medical (twelve) Branch hours for 180 days. levETIRAcet 2021-09- No [id number] 1500mg Take 2 [facility] am 750 mg 2-16 06-15 tablets by ity of tablet 00:00: 04:59 mouth [place] 00 :00 every 12 Medical (twelve) Branch hours for 180 days. levETIRAcet 2021-09- No [id number] 1500mg Take 2 Univers am 750 mg 2-16 06-15 tablets by ity of tablet 00:00: 04:59 mouth [place] 00 :00 every 12 Medical (twelve) Branch hours for 180 days. levETIRAcet 2021-09- No [id number] 1500mg Take 2 Univers am 750 mg 2-16 06-15 tablets by ity of tablet 00:00: 04:59 mouth [place] 00 :00 every 12 Medical (twelve) Branch hours for 180 days. levETIRAcet 2021-09- No [id number] 1500mg Take 2 Univers am 750 mg 2-16 06-15 tablets by ity of tablet 00:00: 04:59 mouth [place] 00 :00 every 12 Medical (twelve) Branch hours for 180 days. levETIRAcet 2021-09- No [id number] 1500mg Take 2 Univers am 750 mg 2-16 06-15 tablets by ity of tablet 00:00: 04:59 mouth [place] 00 :00 every 12 Medical (twelve) Branch hours for 180 days. atorvastati 2021-09- No [id number] 80mg Take 1 Univers n 80 mg 2-16 04-16 tablet by ity of tablet 00:00: 04:59 mouth at [place] 00 :00 bedtime Medical for 120 Branch days. atorvastati 2021-09- No [id number] 80mg Take 1 Univers n 80 mg 2-16 04-16 tablet by ity of tablet 00:00: 04:59 mouth at [place] 00 :00 bedtime Medical for 120 Branch days. atorvastati 2021-09- No [id number] 80mg Take 1 Univers n 80 mg 2-16 -16 tablet by ity of tablet 00:00: 04:59 mouth at [place] 00 :00 bedtime Medical for 120 Branch days. atorvastati 2021-09- No [id number] 80mg Take 1 Univers n 80 mg 2-16 -16 tablet by ity of tablet 00:00: 04:59 mouth at [place] 00 :00 bedtime Medical for 120 Branch days. atorvastati 2021-09- No [id number] 80mg Take 1 Univers n 80 mg 2-16 -16 tablet by ity of tablet 00:00: 04:59 mouth at [place] 00 :00 bedtime Medical for 120 Branch days. atorvastati 2021-09- No [id number] 80mg Take 1 Univers n 80 mg 2-16 04-16 tablet by ity of tablet 00:00: 04:59 mouth at [place] 00 :00 bedtime Medical for 120 Branch days. atorvastati 2021-09- No [id number] 80mg Take 1 Univers n 80 mg 2-16 04-16 tablet by ity of tablet 00:00: 04:59 mouth at [place] 00 :00 bedtime Medical for 120 Branch days. atorvastati 2021-09- No [id number] 80mg Take 1 Univers n 80 mg 2-16 04-16 tablet by ity of tablet 00:00: 04:59 mouth at [place] 00 :00 bedtime Medical for 120 Branch days. atorvastati 2021-09- No [id number] 80mg Take 1 Univers n 80 mg 2-16 -16 tablet by ity of tablet 00:00: 04:59 mouth at [place] 00 :00 bedtime Medical for 120 Branch days. atorvastati 2021-09- No [id number] 80mg Take 1 Univers n 80 mg 2-16 -16 tablet by ity of tablet 00:00: 04:59 mouth at [place] 00 :00 bedtime Medical for 120 Branch days. atorvastati 2021-09- No [id number] 80mg Take 1 Univers n 80 mg 2-16 - tablet by ity of tablet 00:00: 00:00 mouth at [place] 00 :00 bedtime Medical for 120 Branch days. atorvastati 2021-09- No [id number] 80mg Take 1 Univers n 80 mg -16 10-25 tablet by ity of tablet 00:00: 00:00 mouth at [place] 00 :00 bedtime Medical for 120 Branch days. atorvastati 2021-09 Yes 80mg 80 mg, Univ ers n (LIPITOR) 2-14 Oral, QHS, it y of tablet 80 03:00: First dose [place] mg 00 on [facility] 09/06/22 Branch at 2100, Until Discontinu ed, Routine apixaban 2021-09 Yes 5mg 5 mg, Univers (ELIQUIS) 2-14 Oral, BID, ity of tablet 5 mg 02:00: First dose [place] 00 (after Medical last Branch reorder) on Mon09/06/22 at 2000, Until Discontinu ed, Routine
Indicatio ns: DVT/PE barium 2021-09- No [id number] 10mL 10 mL, Univ ers sulfate-NO 11-07 Oral, ity of CHARGE- 20:00: 19:52 ONCE, 1 [place] (VARIBAR 00 :00 dose, On Medical NECTOR) 40 Tue Branch % (w/v) 09/06/22 oral at 1400, suspension Routine 10 mL barium 2021-09 No [id number] 20g 20 g, Unive rs sulfate -09-06 Oral, ity of (VARIBAR 20:00: 19:52 ONCE, 1 [place] THIN 00 :00 dose, On Medical LIQUID) 81 Mon Branch % (w/w) 09/06/22 oral powder at 1400, 20 g Routine enoxaparin 2021-09- No 1mg/kg 60 mg Uni vers (LOVENOX) 11-07 (rounded ity o f injection 17:30: 21:17 from 56.7 [place] 60 mg 00 :13 mg = 1 Medical mg/kg Branch ?56.7 kg), Subcutaneo us, Q12H ABX, First dose on Mon09/06/22 at 1130, Until Discontinu ed, Routine Saline 2021-09 Yes [id number] 6mL 6 mL, Unive rs Bubble 2-13 Injection, ity of Study 16:43: SEE-INSTRU [place] 59 CTIONS, Medical Starting Branch on Mon09/06/22 at 1043, Until Discontinu ed, Routine Saline 2021-09 Yes [id number] 6mL 6 mL, Unive rs Bubble 2-13 Injection, ity of Study 16:43: SEE-INSTRU [place] 56 CTIONS, Medical Starting Branch on Mon09/06/22 at 1043, Until Discontinu ed, Routine levETIRAcet 2021-09 Yes 1500mg 1,500 mg, Univers am (KEPPRA) 13 IV ity of in NACL 04:30: [place] (ISO-OS) 00 Q12H, Medical 1,500 First dose Branch mg/100 mL on Mon RTU 09/05/22 at 2230, Until Discontinu ed, Administer over 15 Minutes, 100 mL methylpredn 2021-09- No 80mg 80 mg, Uni vers isolone sod 11-07 Intramuscu i ty of succ 04:00: 02:30 lar, ONCE, [place] (SOLU-MEDRO 00 :00 1 dose, On Me dical L) Mon Branch injection 09/05/22 80 mg at 2200, 2 mL nortriptyli 2021-09 Yes 50mg 50 mg, Univ ers ne 2-13 Oral, QHS, ity of (PAMELOR) 03:00: First dose [place] capsule 50 00 on [facility] Medical mg 09/05/22 Branch at 2100, Until Discontinu ed, Routine iopamidol 2021-09- No [id number] 80mL 80 mL, Univers (ISOVUE 213 1213 Intravenou ity o f 370-500 mL) 02:43: 03:00 s, ONCE, 1 [place] injection 00 :00 dose, On Medica l 80 mL [facility] 09/05/22 at 2100, Routine NaCl 0.9% 2021-09 Yes 5mL 5 mL, Slow Un austyn (NS) 2-13 IV Push, ity of injection 5 02:02: PRN - SEE [place] mL 17 [facility] Medical NS, Branch Starting on [facility] 09/05/22 at 2002, Until Discontinu ed, 10 mL pantoprazol 2021-09 Yes 40mg 40 mg, Univ ers e 2-12 Oral, ity of (PROTONIX) 15:00: DAILY, [place] EC tablet 00 First dose Medi blane 40 mg on [facility] 09/05/22 at 0900, Until Discontinu ed, Routine tiotropium 2021-09 Yes 18ug 18 mcg, Univ ers (SPIRIVA) 2-12 Inhalation ity of inhalation 15:00: , DAILY, [place] 18 mcg 00 First dose Medical on [facility] 09/05/22 at 0900, Until Discontinu ed DULoxetine 2021-09 Yes 30mg 30 mg, Unive rs (CYMBALTA) 2-12 Oral, ity of capsule 30 15:00: DAILY, [place] mg 00 First dose Medical on [facility] 09/05/22 at 0900, Until Discontinu ed, Routine digoxin 2021-09 Yes 125ug 125 mcg, Unive rs (LANOXIN) 2-12 Oral, ity of tablet 125 15:00: DAILY, [place] mcg 00 First dose Medical on [facility] 09/05/22 at 0900, Until Discontinu ed, Routine LORazepam 2021-09 Yes 1mg 1 mg, Slow Un austyn (ATIVAN) 2-12 IV Push, ity of injection 1 14:51: Q5MIN PRN, [place] mg 49 5 doses, Medical Starting Branch on [facility] 09/05/22 at 0851, Until Discontinu ed, Routine, Seizures budesonide- 2021-09 Yes 2{puff} 2 Puff, Univers formoteroL 2-12 Inhalation ity of (SYMBICORT) 14:00: , BID, [place] 160-4.5 00 First dose Medica l mcg/actuati on [facility] on inhaler 09/05/22 2 Puff at 0800, Until Discontinu ed levETIRAcet 2021-09- No 1500mg 1,500 mg, Univers am (KEPPRA) 11-06 Oral, BID, i ty of tablet 14:00: 04:15 First [place] 1,500 mg 00 :13 on [facility] 09/05/22 Branch at 0800, Until Discontinu ed, Routine carvediloL 2021-09- No 25mg 25 mg, Univ ers (COREG) 11-06 Oral, BID ity of tablet 25 14:00: 04:14 MEALS, [place] mg 00 :00 First dose Medical on [facility] 09/05/22 at 0800, Until Discontinu ed, Routine apixaban 2021-09- No 5mg 5 mg, Univers (ELIQUIS) 11-06 Oral, BID, ity of tablet 5 mg 14:00: 17:26 First dose [place] 00 :36 on [facility] 09/05/22 Branch at 0800, Until Discontinu ed, Routine
Indicatio ns: DVT/PE acetaminoph 2021-09 Yes 650mg 650 mg, Un austyn en 12 Oral, ity of (TYLENOL) 07:50: Q6HPRN, [place] tablet 650 49 Starting Medic al mg on [facility] 09/05/22 at 0150, Until Discontinu ed, Routine, Pain (scale 4-6) docusate 2021-09 Yes 100mg 100 mg, Unive rs (COLACE) 2-12 Oral, ity of capsule 100 07:50: QDAILYPRN, [place] mg 49 Starting Medical on [facility] 09/05/22 at 0150, Until Discontinu ed, Routine, Constipati on albuterol 2021-09 Yes 2{puff} 2 Puff, Un austyn (VENTOLIN) 2 Inhalation ity of inhaler 2 07:48: , Q6HPRN, [place] Puff 47 Starting Medical on [facility] 09/05/22 at 0148, Until Discontinu ed, Routine, Wheezing, Shortness of Breath ketorolac 2021-09 No 30mg 30 mg, Unive rs (TORADOL) 11-06 Slow IV ity of injection 06:00: 05:06 Push, [place] 30 mg 00 :00 ONCE, 1 Medical dose, On Branch 09/05/22 at 0000, Routine levETIRAcet 2021-09 No 1000mg 1,000 mg, Univers am (KEPPRA) 11-06 IV ity of in NACL 05:45: 05:24 Piggyback, [place] (ISO-OS) 00 :00 ONCE, 1 Medical 1,000 dose, On Branch mg/100 mL Sun RTU 09/04/22 at 2345, Administer over 15 Minutes, 100 mL ALPRAZolam 2021-09 Yes [id number] .25mg Take 0.25 Univers 0.25 mg 2-12 mg by ity of tablet 01:54: mouth at [place] [address] bedtime as Medical needed. Branch pregabalin 2021-09 Yes 50mg Take 50 mg U nivers 50 mg 2-12 by mouth ity of capsule 01:54: at [place] [address] bedtime. Medical Branch rosuvastati 2021-09 Yes 10mg Take 10 mg Univers n 10 mg 2-12 by mouth ity of tablet 01:54: at [place] [address] bedtime. Medical Branch esomeprazol 2021-09 Yes 20mg Take 20 mg Univers e 20 mg 2-12 by mouth 2 ity of capsule 01:48: (two) [place] 40 times Medical daily Branch before breakfast and dinner. azithromyci 2021-09 Yes [id number] 250mg Take 1 Univers n 250 mg 2-08 tablet by ity of tablet 00:00: mouth in [place] 00 the Medical morning. Branch roflumilast 2021-09 Yes [id number] 500ug Take 1 Univers (DALIRESP) 2-08 tablet by ity of 500 mcg 00:00: mouth in [place] [facility] 00 the Medical morning. Branch azithromyci 2021-09 Yes [id number] 250mg Take 1 Univers n 250 mg 2-08 tablet by ity of tablet 00:00: mouth in [place] 00 the Medical morning. Branch roflumilast 2021-09 Yes [id number] 500ug Take 1 Univers (DALIRESP) 2-08 tablet by ity of 500 mcg 00:00: mouth in [place] tablet 00 the Medical morning. Branch azithromyci 2021-09 Yes [id number] 250mg Take 1 Univers n 250 mg 2-08 tablet by ity of tablet 00:00: mouth in [place] 00 the Medical morning. Branch roflumilast 2021-09 Yes [id number] 500ug Take 1 Univers (DALIRESP) 2-08 tablet by ity of 500 mcg 00:00: mouth in [place] tablet 00 the Medical morning. Branch azithromyci 2021-09 Yes [id number] 250mg Take 1 Univers n 250 mg 2-08 tablet by ity of tablet 00:00: mouth in [place] 00 the Medical morning. Branch roflumilast 2021-09 Yes [id number] 500ug Take 1 Univers (DALIRESP) 2-08 tablet by ity of 500 mcg 00:00: mouth in [place] tablet 00 the Medical morning. [place] azithromyci 2021-09 Yes [id number] 250mg Take 1 Univers n 250 mg 2-08 tablet by ity of tablet 00:00: mouth in [place] 00 the Medical morning. Branch roflumilast 2021-09 Yes [id number] 500ug Take 1 Univers (DALIRESP) 2-08 tablet by ity of 500 mcg 00:00: mouth in [place] tablet 00 the Medical morning. Branch azithromyci 2021-09 Yes [id number] 250mg Take 1 Univers n 250 mg 2-08 tablet by ity of tablet 00:00: mouth in [place] 00 the Medical morning. Branch roflumilast 2021-09 Yes [id number] 500ug Take 1 Univers (DALIRESP) 2-08 tablet by ity of 500 mcg 00:00: mouth in [place] tablet 00 the Medical morning. Branch azithromyci 2021-09 Yes [id number] 250mg Take 1 Univers n 250 mg 2-08 tablet by ity of tablet 00:00: mouth in [place] 00 the Medical morning. Branch roflumilast 2021-09 Yes [id number] 500ug Take 1 Univers (DALIRESP) 2-08 tablet by ity of 500 mcg 00:00: mouth in [place] tablet 00 the Medical morning. Branch roflumilast 2021-09 Yes [id number] 500ug Take 1 Univers (DALIRESP) 2-08 tablet by ity of 500 mcg 00:00: mouth in [place] tablet 00 the Medical morning. Branch roflumilast 2021-09 Yes [id number] 500ug Take 1 Univers (DALIRESP) 2-08 tablet by ity of 500 mcg 00:00: mouth in [place] tablet 00 the Medical morning. Branch roflumilast 2021-09 Yes [id number] 500ug Take 1 Univers (DALIRESP) 2-08 tablet by ity of 500 mcg 00:00: mouth in [place] tablet 00 the Medical morning. Branch roflumilast 2021-09 Yes [id number] 500ug Take 1 Univers (DALIRESP) 2-08 tablet by ity of 500 mcg 00:00: mouth in [place] tablet 00 the Medical morning. [place] roflumilast 2021-09 Yes [id number] 500ug Take 1 Univers (DALIRESP) 2-08 tablet by ity of 500 mcg 00:00: mouth in [place] tablet 00 the Medical morning. [place] roflumilast 2021-09 Yes [id number] 500ug Take 1 Univers (DALIRESP) 2-08 tablet by ity of 500 mcg 00:00: mouth in [place] tablet 00 the Medical morning. [place] roflumilast 2021-09 Yes [id number] 500ug Take 1 Univers (DALIRESP) 2-08 tablet by ity of 500 mcg 00:00: mouth in [place] tablet 00 the Medical morning. [place] roflumilast 2021-09 Yes [id number] 500ug Take 1 Univers (DALIRESP) 2-08 tablet by ity of 500 mcg 00:00: mouth in [place] tablet 00 the Medical morning. [place] roflumilast 2021-09 Yes [id number] 500ug Take 1 Univers (DALIRESP) 2-08 tablet by ity of 500 mcg 00:00: mouth in [place] tablet 00 the Medical morning. Branch roflumilast 2021-09 Yes [id number] 500ug Take 1 Univers (DALIRESP) 2-08 tablet by ity of 500 mcg 00:00: mouth in [place] tablet 00 the Medical morning. Branch roflumilast 2021-09 Yes [id number] 500ug Take 1 Univers (DALIRESP) 2-08 tablet by ity of 500 mcg 00:00: mouth in [place] tablet 00 the Medical morning. Branch roflumilast 2021-09 Yes [id number] 500ug Take 1 Univers (DALIRESP) 2-08 tablet by ity of 500 mcg 00:00: mouth in [place] tablet 00 the Medical morning. Branch roflumilast 2021-09 Yes [id number] 500ug Take 1 Univers (DALIRESP) 2-08 tablet by ity of 500 mcg 00:00: mouth in [place] tablet 00 the Medical morning. Branch roflumilast 2021-09 Yes [id number] 500ug Take 1 Univers (DALIRESP) 2-08 tablet by ity of 500 mcg 00:00: mouth in [place] tablet 00 the Medical morning. Branch roflumilast 2021-09 Yes [id number] 500ug Take 1 Univers (DALIRESP) 2-08 tablet by ity of 500 mcg 00:00: mouth in [place] tablet 00 the Medical morning. Branch roflumilast 2021-09 Yes [id number] 500ug Take 1 Univers (DALIRESP) 2-08 tablet by ity of 500 mcg 00:00: mouth in [place] tablet 00 the Medical morning. Branch roflumilast 2021-09 Yes [id number] 500ug Take 1 Univers (DALIRESP) 2-08 tablet by ity of 500 mcg 00:00: mouth in [place] tablet 00 the Medical morning. Branch roflumilast 2021-09 Yes [id number] 500ug Take 1 Univers (DALIRESP) 2-08 tablet by ity of 500 mcg 00:00: mouth in [place] tablet 00 the Medical morning. Branch roflumilast 2021-09 Yes [id number] 500ug Take 1 Univers (DALIRESP) 2-08 tablet by ity of 500 mcg 00:00: mouth in [place] tablet 00 the Medical morning. Branch roflumilast 2021-09 Yes [id number] 500ug Take 1 Univers (DALIRESP) 2-08 tablet by ity of 500 mcg 00:00: mouth in [place] tablet 00 the Medical morning. Branch roflumilast 2021-09 Yes [id number] 500ug Take 1 Univers (DALIRESP) 2-08 tablet by ity of 500 mcg 00:00: mouth in [place] tablet 00 the Medical morning. Branch roflumilast 2021-09 Yes [id number] 500ug Take 1 Univers (DALIRESP) 2-08 tablet by ity of 500 mcg 00:00: mouth in [place] tablet 00 the Medical morning. Branch roflumilast 2021-09 Yes [id number] 500ug Take 1 Univers (DALIRESP) 2-08 tablet by ity of 500 mcg 00:00: mouth in [place] tablet 00 the Medical morning. Branch roflumilast 2021-09 Yes [id number] 500ug Take 1 Univers (DALIRESP) 2-08 tablet by ity of 500 mcg 00:00: mouth in [place] tablet 00 the Medical morning. Branch roflumilast 2021-09 Yes [id number] 500ug Take 1 Univers (DALIRESP) 2-08 tablet by ity of 500 mcg 00:00: mouth in [place] tablet 00 the Medical morning. Branch roflumilast 2021-09 Yes [id number] 500ug Take 1 Univers (DALIRESP) 2-08 tablet by ity of 500 mcg 00:00: mouth in [place] tablet 00 the Medical morning. Branch roflumilast 2021-09 Yes [id number] 500ug Take 1 Univers (DALIRESP) 2-08 tablet by ity of 500 mcg 00:00: mouth in [place] tablet 00 the Medical morning. Branch roflumilast 2021-09 Yes [id number] 500ug Take 1 Univers (DALIRESP) 2-08 tablet by ity of 500 mcg 00:00: mouth in [place] tablet 00 the Medical morning. Branch roflumilast 2021-09 Yes [id number] 500ug Take 1 Univers (DALIRESP) 2-08 tablet by ity of 500 mcg 00:00: mouth in [place] tablet 00 the Medical morning. Branch roflumilast 2021-09 Yes [id number] 500ug Take 1 Univers (DALIRESP) 2-08 tablet by ity of 500 mcg 00:00: mouth in [place] tablet 00 the Medical morning. Branch roflumilast 2021-09 Yes [id number] 500ug Take 1 Univers (DALIRESP) 2-08 tablet by ity of 500 mcg 00:00: mouth in [place] tablet 00 the Medical morning. Branch roflumilast 2021-09 Yes [id number] 500ug Take 1 Univers (DALIRESP) 2-08 tablet by ity of 500 mcg 00:00: mouth in [place] tablet 00 the Medical morning. Branch roflumilast 2021-09 Yes [id number] 500ug Take 1 Univers (DALIRESP) 2-08 tablet by ity of 500 mcg 00:00: mouth in [place] tablet 00 the Medical morning. Branch roflumilast 2021-09 Yes [id number] 500ug Take 1 Univers (DALIRESP) 2-08 tablet by ity of 500 mcg 00:00: mouth in [place] tablet 00 the Medical morning. Branch roflumilast 2021-09 Yes [id number] 500ug Take 1 Univers (DALIRESP) 2-08 tablet by ity of 500 mcg 00:00: mouth in [place] tablet 00 the Medical morning. Branch roflumilast 2021-09 Yes [id number] 500ug Take 1 Univers (DALIRESP) 2-08 tablet by ity of 500 mcg 00:00: mouth in [place] tablet 00 the Medical morning. Branch roflumilast 2021-09 Yes [id number] 500ug Take 1 Univers (DALIRESP) 2-08 tablet by ity of 500 mcg 00:00: mouth in [place] tablet 00 the Medical morning. Branch roflumilast 2021-09 Yes [id number] 500ug Take 1 Univers (DALIRESP) 2-08 tablet by ity of 500 mcg 00:00: mouth in [place] tablet 00 the Medical morning. Branch roflumilast 2021-09 Yes [id number] 500ug Take 1 Univers (DALIRESP) 2-08 tablet by ity of 500 mcg 00:00: mouth in [place] tablet 00 the Medical morning. Branch roflumilast 2021-09 Yes [id number] 500ug Take 1 Univers (DALIRESP) 2-08 tablet by ity of 500 mcg 00:00: mouth in [place] tablet 00 the Medical morning. Branch roflumilast 2021-09 Yes [id number] 500ug Take 1 Univers (DALIRESP) 2-08 tablet by ity of 500 mcg 00:00: mouth in [place] tablet 00 the Medical morning. Branch roflumilast 2021-09 Yes [id number] 500ug Take 1 Univers (DALIRESP) 2-08 tablet by ity of 500 mcg 00:00: mouth in [place] tablet 00 the Medical morning. Branch roflumilast 2021-09 Yes [id number] 500ug Take 1 Univers (DALIRESP) 2-08 tablet by ity of 500 mcg 00:00: mouth in [place] tablet 00 the Medical morning. Branch roflumilast 2021-09 Yes [id number] 500ug Take 1 Univers (DALIRESP) 2-08 tablet by ity of 500 mcg 00:00: mouth in [place] tablet 00 the Medical morning. Branch roflumilast 2021-09 Yes [id number] 500ug Take 1 Univers (DALIRESP) 2-08 tablet by ity of 500 mcg 00:00: mouth in [place] tablet 00 the Medical morning. Branch roflumilast 2021-09 Yes [id number] 500ug Take 1 Univers (DALIRESP) 2-08 tablet by ity of 500 mcg 00:00: mouth in [place] tablet 00 the Medical morning. Branch roflumilast 2021-09 Yes [id number] 500ug Take 1 Univers (DALIRESP) 2-08 tablet by ity of 500 mcg 00:00: mouth in [place] tablet 00 the Medical morning. [place] roflumilast 2021-09 Yes [id number] 500ug Take 1 Univers (DALIRESP) 2-08 tablet by ity of 500 mcg 00:00: mouth in [place] tablet 00 the Medical morning. Branch roflumilast 2021-09 Yes [id number] 500ug Take 1 Univers (DALIRESP) 2-08 tablet by ity of 500 mcg 00:00: mouth in [place] tablet 00 the Medical morning. [place] roflumilast 2021-09 Yes [id number] 500ug Take 1 Univers (DALIRESP) 2-08 tablet by ity of 500 mcg 00:00: mouth in [place] tablet 00 the Medical morning. Branch roflumilast 2021-09 Yes [id number] 500ug Take 1 Univers (DALIRESP) 2-08 tablet by ity of 500 mcg 00:00: mouth in [place] tablet 00 the Medical morning. Branch roflumilast 2021-09 Yes [id number] 500ug Take 1 Univers (DALIRESP) 2-08 tablet by ity of 500 mcg 00:00: mouth in [place] tablet 00 the Medical morning. Branch roflumilast 2021-09 Yes [id number] 500ug Take 1 Univers (DALIRESP) 2-08 tablet by ity of 500 mcg 00:00: mouth in [place] tablet 00 the Medical morning. Branch roflumilast 2021-09 Yes [id number] 500ug Take 1 Univers (DALIRESP) 2-08 tablet by ity of 500 mcg 00:00: mouth in [place] tablet 00 the Medical morning. Branch roflumilast 2021-09 Yes [id number] 500ug Take 1 Univers (DALIRESP) 2-08 tablet by ity of 500 mcg 00:00: mouth in [place] tablet 00 the Medical morning. Branch roflumilast 2021-09 Yes [id number] 500ug Take 1 Univers (DALIRESP) 2-08 tablet by ity of 500 mcg 00:00: mouth in [place] tablet 00 the Medical morning. Branch roflumilast 2021-09 Yes [id number] 500ug Take 1 Univers (DALIRESP) 2-08 tablet by ity of 500 mcg 00:00: mouth in [place] tablet 00 the Medical morning. Branch azithromyci 2021-09- No [id number] 250mg Take 1 [facility] n 250 mg 2-08 - tablet by ity o f tablet 00:00: 00:00 mouth in [place] 00 :00 the Medical morning. Branch predniSONE 2021-09- No [id number] 40mg Take 2 [facility] 20 mg 2-08 12-16 tablets by ity of tablet 00:00: 00:00 mouth in [place] 00 :00 the Medical morning Branch for 5 days. predniSONE 2021-09- No [id number] 40mg Take 2 [facility] 20 mg 2-08 12-16 tablets by ity of tablet 00:00: 00:00 mouth in [place] 00 :00 the Medical morning Branch for 5 days. predniSONE 2021-09- No [id number] 40mg Take 2 [facility] 20 mg 2-08 12-14 tablets by ity of tablet 00:00: 05:59 mouth in [place] 00 :00 the Medical morning Branch for 5 days. predniSONE 2021-09- No [id number] 40mg Take 2 [facility] 20 mg 2-08 12-14 tablets by ity of tablet 00:00: 05:59 mouth in [place] 00 :00 the Medical morning Branch for 5 days. predniSONE 2021-09- No [id number] 40mg Take 2 [facility] 20 mg 2-08 12-14 tablets by ity of tablet 00:00: 05:59 mouth in [place] 00 :00 the Medical morning [place] for 5 days. nortriptyli 2021-09 Yes [id number] 50mg Take 5 [facility] ne 10 mg 2-07 capsules ity of capsule 00:00: by mouth [place] 00 at Medical bedtime. Branch nortriptyli 2021-09 Yes [id number] 50mg Take 5 [facility] ne 10 mg 2-07 capsules ity of capsule 00:00: by mouth [place] 00 at Medical bedtime. Branch nortriptyli 2021-09 Yes [id number] 50mg Take 5 [facility] ne 10 mg 2-07 capsules ity of capsule 00:00: by mouth [place] 00 at Medical bedtime. Branch nortriptyli 2021-09 Yes [id number] 50mg Take 5 [facility] ne 10 mg 2-07 capsules ity of capsule 00:00: by mouth [place] 00 at Medical bedtime. Branch nortriptyli 2021-09 Yes [id number] 50mg Take 5 [facility] ne 10 mg 2-07 capsules ity of capsule 00:00: by mouth [place] 00 at Medical bedtime. Branch nortriptyli 2021-09 Yes [id number] 50mg Take 5 [facility] ne 10 mg 2-07 capsules ity of capsule 00:00: by mouth [place] 00 at Medical bedtime. Branch nortriptyli 2021-09 Yes [id number] 50mg Take 5 [facility] ne 10 mg 2-07 capsules ity of capsule 00:00: by mouth [place] 00 at Medical bedtime. Branch nortriptyli 2021-09 Yes [id number] 50mg Take 5 [facility] ne 10 mg 2-07 capsules ity of capsule 00:00: by mouth [place] 00 at Medical bedtime. Branch nortriptyli 2021-09 Yes [id number] 50mg Take 5 [facility] ne 10 mg 2-07 capsules ity of capsule 00:00: by mouth [place] 00 at Medical bedtime. Branch nortriptyli 2021-09 Yes [id number] 50mg Take 5 [facility] ne 10 mg 2-07 capsules ity of capsule 00:00: by mouth [place] 00 at Medical bedtime. Branch nortriptyli 2021-09 Yes [id number] 50mg Take 5 [facility] ne 10 mg 2-07 capsules ity of capsule 00:00: by mouth [place] 00 at Medical bedtime. Branch nortriptyli 2021-09- No [id number] 50mg Take 5 [facility] ne 10 mg 2-07 01-05 capsules ity of capsule 00:00: 00:00 by mouth [place] 00 :00 at Medical bedtime. Branch nortriptyli 2021-2022- No [id number] 50mg Take 5 [facility] ne 10 mg 2-07 01-05 capsules ity of capsule 00:00: 00:00 by mouth [place] 00 :00 at Medical bedtime. Branch nortriptyli 2021-09- No [id number] 50mg Take 5 [facility] ne 10 mg 2-07 01-05 capsules ity of capsule 00:00: 00:00 by mouth [place] 00 :00 at Medical bedtime. Branch carvediloL 2021-09 Yes [id number] 25mg Take 1 [facility] 25 mg 2-05 tablet by ity of tablet 00:00: mouth in [place] 00 the Medical morning Branch and 1 tablet in the evening. Take with meals. carvediloL 2021-09 Yes [id number] 25mg Take 1 [facility] 25 mg 2-05 tablet by ity of tablet 00:00: mouth in [place] [address] the Medical morning Branch and 1 tablet in the evening. Take with meals. carvediloL 2021-09 Yes [id number] 25mg Take 1 [facility] 25 mg 2-05 tablet by ity of tablet 00:00: mouth in [place] [address] the Medical morning Branch and 1 tablet in the evening. Take with meals. carvediloL 2021-09 Yes [id number] 25mg Take 1 [facility] 25 mg 2-05 tablet by ity of tablet 00:00: mouth in [place] 00 the Medical morning Branch and 1 tablet in the evening. Take with meals. carvediloL 2021-09 Yes [id number] 25mg Take 1 [facility] 25 mg 2-05 tablet by ity of tablet 00:00: mouth in [place] [address] the Medical morning Branch and 1 tablet in the evening. Take with meals. carvediloL 2021-09 Yes [id number] 25mg Take 1 [facility] 25 mg 2-05 tablet by ity of tablet 00:00: mouth in [place] [address] the [facility] morning [place] and 1 tablet in the evening. Take with meals. carvediloL 2022-1 Yes [id number] 25mg Take 1 [facility] 25 mg 2-05 tablet by ity of tablet 00:00: mouth in [place] [address] the Medical morning [place] and 1 tablet in the evening. Take with meals. carvediloL 2021-09 Yes [id number] 25mg Take 1 [facility] 25 mg 2-05 tablet by ity of tablet 00:00: mouth in [place] [address] the [facility] morning [place] and 1 tablet in the evening. Take with meals. carvediloL 2021-09 Yes [id number] 25mg Take 1 [facility] 25 mg 2-05 tablet by ity of tablet 00:00: mouth in [place] [address] the [facility] morning [place] and 1 tablet in the evening. Take with meals. carvediloL 2021-09 Yes [id number] 25mg Take 1 [facility] 25 mg 2-05 tablet by ity of tablet 00:00: mouth in [address] morning [place] and 1 tablet in the evening. Take with meals. carvediloL 2021-09 Yes [id number] 25mg Take 1 [facility] 25 mg 2-05 tablet by ity of tablet 00:00: mouth in [address] morning [place] and 1 tablet in the evening. Take with meals. carvediloL 2021-09 Yes [id number] 25mg Take 1 [facility] 25 mg 2-05 tablet by ity of tablet 00:00: mouth in [address] morning [place] and 1 tablet in the evening. Take with meals. carvediloL 2021-09 Yes [id number] 25mg Take 1 [facility] 25 mg 2-05 tablet by ity of tablet 00:00: mouth in [address] morning [place] and 1 tablet in the evening. Take with meals. carvediloL 2021-09 Yes [id number] 25mg Take 1 [facility] 25 mg 2-05 tablet by ity of tablet 00:00: mouth in [address] morning [place] and 1 tablet in the evening. Take with meals. carvediloL 2021-09 Yes [id number] 25mg Take 1 [facility] 25 mg 2-05 tablet by ity of tablet 00:00: mouth in [address] morning [place] and 1 tablet in the evening. Take with meals. carvediloL 2021-09 Yes [id number] 25mg Take 1 [facility] 25 mg 2-05 tablet by ity of tablet 00:00: mouth in [address] morning [place] and 1 tablet in the evening. Take with meals. carvediloL 2021-09 Yes [id number] 25mg Take 1 [facility] 25 mg 2-05 tablet by ity of tablet 00:00: mouth in [place] [address] the Medical morning [place] and 1 tablet in the evening. Take with meals. carvediloL 2021-09 Yes [id number] 25mg Take 1 [facility] 25 mg 2-05 tablet by ity of tablet 00:00: mouth in [place] [address] the [facility] morning [place] and 1 tablet in the evening. Take with meals. carvediloL 2021-09 Yes [id number] 25mg Take 1 [facility] 25 mg 2-05 tablet by ity of tablet 00:00: mouth in [place] [address] the Medical morning [place] and 1 tablet in the evening. Take with meals. carvediloL 2021-09 Yes [id number] 25mg Take 1 [facility] 25 mg 2-05 tablet by ity of tablet 00:00: mouth in [address] morning [place] and 1 tablet in the evening. Take with meals. carvediloL 2021-09 Yes [id number] 25mg Take 1 [facility] 25 mg 2-05 tablet by ity of tablet 00:00: mouth in [address] morning [place] and 1 tablet in the evening. Take with meals. carvediloL 2021-09 Yes [id number] 25mg Take 1 [facility] 25 mg 2-05 tablet by ity of tablet 00:00: mouth in [address] morning [place] and 1 tablet in the evening. Take with meals. carvediloL 2021-09 Yes [id number] 25mg Take 1 [facility] 25 mg 2-05 tablet by ity of tablet 00:00: mouth in [address] morning [place] and 1 tablet in the evening. Take with meals. carvediloL 2021-09 Yes [id number] 25mg Take 1 [facility] 25 mg 2-05 tablet by ity of tablet 00:00: mouth in [address] morning [place] and 1 tablet in the evening. Take with meals. carvediloL 2021-09 Yes [id number] 25mg Take 1 [facility] 25 mg 2-05 tablet by ity of tablet 00:00: mouth in [address] morning [place] and 1 tablet in the evening. Take with meals. carvediloL 2021-09 Yes [id number] 25mg Take 1 [facility] 25 mg 2-05 tablet by ity of tablet 00:00: mouth in [address] morning Branch and 1 tablet in the evening. Take with meals. carvediloL 2021-09 Yes [id number] 25mg Take 1 [facility] 25 mg 2-05 tablet by ity of tablet 00:00: mouth in [place] [address] the [facility] morning [place] and 1 tablet in the evening. Take with meals. carvediloL 2021-09 Yes [id number] 25mg Take 1 [facility] 25 mg 2-05 tablet by ity of tablet 00:00: mouth in [place] [address] the [facility] morning [place] and 1 tablet in the evening. Take with meals. carvediloL 2021-09 Yes [id number] 25mg Take 1 [facility] 25 mg 2-05 tablet by ity of tablet 00:00: mouth in [place] [address] the [facility] morning [place] and 1 tablet in the evening. Take with meals. carvediloL 2021-09 Yes [id number] 25mg Take 1 [facility] 25 mg 2-05 tablet by ity of tablet 00:00: mouth in [place] [address] the [facility] morning [place] and 1 tablet in the evening. Take with meals. carvediloL 2021-09 Yes [id number] 25mg Take 1 [facility] 25 mg 2-05 tablet by ity of tablet 00:00: mouth in [address] morning [place] and 1 tablet in the evening. Take with meals. carvediloL 2021-09 Yes [id number] 25mg Take 1 [facility] 25 mg 2-05 tablet by ity of tablet 00:00: mouth in [place] [address] the [facility] morning [place] and 1 tablet in the evening. Take with meals. carvediloL 2021-09 Yes [id number] 25mg Take 1 [facility] 25 mg 2-05 tablet by ity of tablet 00:00: mouth in [place] [address] the [facility] morning [place] and 1 tablet in the evening. Take with meals. carvediloL 2021-09 Yes [id number] 25mg Take 1 [facility] 25 mg 2-05 tablet by ity of tablet 00:00: mouth in [address] morning [place] and 1 tablet in the evening. Take with meals. carvediloL 2021-09 Yes [id number] 25mg Take 1 [facility] 25 mg 2-05 tablet by ity of tablet 00:00: mouth in [address] morning [place] and 1 tablet in the evening. Take with meals. carvediloL 2021-09 Yes [id number] 25mg Take 1 [facility] 25 mg 2-05 tablet by ity of tablet 00:00: mouth in [address] morning [place] and 1 tablet in the evening. Take with meals. carvediloL 2021-09 Yes [id number] 25mg Take 1 [facility] 25 mg 2-05 tablet by ity of tablet 00:00: mouth in [place] [address] the [facility] morning [place] and 1 tablet in the evening. Take with meals. carvediloL 2021-09 Yes [id number] 25mg Take 1 [facility] 25 mg 2-05 tablet by ity of tablet 00:00: mouth in [address] and 1 tablet in the evening. Take with meals. carvediloL 2021-09 Yes [id number] 25mg Take 1 [facility] 25 mg 2-05 tablet by ity of tablet 00:00: mouth in [address] and 1 tablet in the evening. Take with meals. carvediloL 2021-09 Yes [id number] 25mg Take 1 [facility] 25 mg 2-05 tablet by ity of tablet 00:00: mouth in [address] and 1 tablet in the evening. Take with meals. carvediloL 2021-09 Yes [id number] 25mg Take 1 [facility] 25 mg 2-05 tablet by ity of tablet 00:00: mouth in [address] and 1 tablet in the evening. Take with meals. carvediloL 2021-09 Yes [id number] 25mg Take 1 [facility] 25 mg 2-05 tablet by ity of tablet 00:00: mouth in [address] and 1 tablet in the evening. Take with meals. carvediloL 2021-09 Yes [id number] 25mg Take 1 [facility] 25 mg 2-05 tablet by ity of tablet 00:00: mouth in [address] and 1 tablet in the evening. Take with meals. carvediloL 2021-09 Yes [id number] 25mg Take 1 [facility] 25 mg 2-05 tablet by ity of tablet 00:00: mouth in [address] and 1 tablet in the evening. Take with meals. carvediloL 2021-09 Yes [id number] 25mg Take 1 [facility] 25 mg 2-05 tablet by ity of tablet 00:00: mouth in [address] and 1 tablet in the evening. Take with meals. carvediloL 2021-09 Yes [id number] 25mg Take 1 [facility] 25 mg 2-05 tablet by ity of tablet 00:00: mouth in [place] [address] the [facility] morning [place] and 1 tablet in the evening. Take with meals. carvediloL 2021-09 Yes [id number] 25mg Take 1 [facility] 25 mg 2-05 tablet by ity of tablet 00:00: mouth in [place] [address] the [facility] morning [place] and 1 tablet in the evening. Take with meals. carvediloL 2021-09 Yes [id number] 25mg Take 1 [facility] 25 mg 2-05 tablet by ity of tablet 00:00: mouth in [place] [address] the [facility] morning [place] and 1 tablet in the evening. Take with meals. carvediloL 2021-09 Yes [id number] 25mg Take 1 [facility] 25 mg 2-05 tablet by ity of tablet 00:00: mouth in [address] morning [place] and 1 tablet in the evening. Take with meals. carvediloL 2021-09 Yes [id number] 25mg Take 1 [facility] 25 mg 2-05 tablet by ity of tablet 00:00: mouth in [address] morning [place] and 1 tablet in the evening. Take with meals. carvediloL 2021-09 Yes [id number] 25mg Take 1 [facility] 25 mg 2-05 tablet by ity of tablet 00:00: mouth in [address] morning [place] and 1 tablet in the evening. Take with meals. carvediloL 2021-09 Yes [id number] 25mg Take 1 [facility] 25 mg 2-05 tablet by ity of tablet 00:00: mouth in [address] morning [place] and 1 tablet in the evening. Take with meals. carvediloL 2021-09 Yes [id number] 25mg Take 1 [facility] 25 mg 2-05 tablet by ity of tablet 00:00: mouth in [address] morning [place] and 1 tablet in the evening. Take with meals. carvediloL 2021-09 Yes [id number] 25mg Take 1 [facility] 25 mg 2-05 tablet by ity of tablet 00:00: mouth in [address] morning [place] and 1 tablet in the evening. Take with meals. carvediloL 2021-09 Yes [id number] 25mg Take 1 [facility] 25 mg 2-05 tablet by ity of tablet 00:00: mouth in [address] morning [place] and 1 tablet in the evening. Take with meals. carvediloL 2021-09 Yes [id number] 25mg Take 1 [facility] 25 mg 2-05 tablet by ity of tablet 00:00: mouth in [place] [address] the Medical morning [place] and 1 tablet in the evening. Take with meals. carvediloL 2021-09 Yes [id number] 25mg Take 1 [facility] 25 mg 2-05 tablet by ity of tablet 00:00: mouth in [place] [address] the [facility] morning [place] and 1 tablet in the evening. Take with meals. carvediloL 2021-09 Yes [id number] 25mg Take 1 [facility] 25 mg 2-05 tablet by ity of tablet 00:00: mouth in [place] [address] the [facility] morning [place] and 1 tablet in the evening. Take with meals. carvediloL 2021-09 Yes [id number] 25mg Take 1 [facility] 25 mg 2-05 tablet by ity of tablet 00:00: mouth in [address] morning [place] and 1 tablet in the evening. Take with meals. carvediloL 2021-09 Yes [id number] 25mg Take 1 [facility] 25 mg 2-05 tablet by ity of tablet 00:00: mouth in [address] morning [place] and 1 tablet in the evening. Take with meals. carvediloL 2021-09 Yes [id number] 25mg Take 1 [facility] 25 mg 2-05 tablet by ity of tablet 00:00: mouth in [address] morning [place] and 1 tablet in the evening. Take with meals. carvediloL 2021-09 Yes [id number] 25mg Take 1 [facility] 25 mg 2-05 tablet by ity of tablet 00:00: mouth in [address] morning [place] and 1 tablet in the evening. Take with meals. carvediloL 2021-09 Yes [id number] 25mg Take 1 [facility] 25 mg 2-05 tablet by ity of tablet 00:00: mouth in [address] morning [place] and 1 tablet in the evening. Take with meals. carvediloL 2021-09 Yes [id number] 25mg Take 1 [facility] 25 mg 2-05 tablet by ity of tablet 00:00: mouth in [address] morning [place] and 1 tablet in the evening. Take with meals. carvediloL 2021-09 Yes [id number] 25mg Take 1 [facility] 25 mg 2-05 tablet by ity of tablet 00:00: mouth in [address] morning [place] and 1 tablet in the evening. Take with meals. carvediloL 2021-09- No [id number] 25mg Take 1 [facility] 25 mg 201-19 tablet by ity of tablet 00:00: 00:00 mouth in [place] 00 :00 the [facility] morning Branch and 1 tablet in the evening. Take with meals. carvediloL 2021-09- No [id number] 25mg Take 1 [facility] 25 mg 201-19 tablet by ity of tablet 00:00: 00:00 mouth in [place] 00 :00 the [facility] Branch and 1 tablet in the evening. Take with meals. acetaminoph 2021-09- No 1{tbl} 1 tablet, Univers en-codeine 10-19 Oral, ity of (TYLENOL 16:45: 16:57 ONCE, 1 [place] #3) 300-30 00 :00 dose, On Medic [facility] at 1045, GIGI dicyclomine 2021-09- No 20mg 20 mg, Uni vers (BENTYL) 10-14 Oral, ity of tablet 20 21:30: 20:28 [place]CE, [place] mg [place] :[place] dose, On Medical [facility] 08/14/22 at 1530, Routine famotidine 2021-09 No 20mg 20 mg, Univ ers (PEPCID 10-14 Slow IV ity of (PF)) 20:00: 19:53 Push, [place] injection 00 :00 ONCE, 1 Medical 20 mg dose, On [facility] 08/14/22 at 1400, GIGI FENTanyl PF 2021-09 No 50ug 50 mcg, Un [facility] (SUBLIMAZE 10-14 Slow IV ity o f (PF)) 19:00: 18:43 Push, [place] injection 00 :00 ONCE, 1 Medical 50 mcg dose, On [facility] 08/14/22 at 1300, Routine ondansetron 2021-09- No 4mg 4 mg, Slow Univers (ZOFRAN 10-14 IV Push, ity of (PF)) 18:15: 18:42 ONCE, 1 [place] injection 4 00 :00 dose, On Medi blane mg [facility] 08/14/22 at 1215, GIGI benzonatate 2021-09 Yes [id number] TAKE 1 [facility] 100 mg 0-11 CAPSULE BY ity of capsule 00:00: MOUTH THREE Medical TIMES Branch DAILY NEEDED FOR COUGH benzonatate 2021-09 Yes [id number] TAKE 1 [facility] 100 mg 0-11 CAPSULE BY ity of capsule 00:00: MOUTH THREE Medical TIMES Branch DAILY NEEDED FOR COUGH benzonatate 2021-09 Yes [id number] TAKE 1 [facility] 100 mg 0-11 CAPSULE BY ity of capsule 00:00: MOUTH THREE Medical TIMES Branch DAILY NEEDED FOR COUGH benzonatate 2021-09 Yes [id number] TAKE 1 [facility] 100 mg 0-11 CAPSULE BY ity of capsule 00:00: MOUTH THREE Medical TIMES Branch DAILY NEEDED FOR COUGH benzonatate 2021-09 Yes [id number] TAKE 1 [facility] 100 mg 0-11 CAPSULE BY ity of capsule 00:00: MOUTH THREE Medical TIMES Branch DAILY NEEDED FOR COUGH benzonatate 2021-09 Yes [id number] TAKE 1 [facility] 100 mg 0-11 CAPSULE BY ity of capsule 00:00: MOUTH THREE Medical TIMES Branch DAILY NEEDED FOR COUGH benzonatate 2021-09 Yes [id number] TAKE 1 [facility] 100 mg 0-11 CAPSULE BY ity of capsule 00:00: MOUTH THREE Medical TIMES Branch DAILY NEEDED FOR COUGH benzonatate 2021-09 Yes [id number] TAKE 1 [facility] 100 mg 0-11 CAPSULE BY ity of capsule 00:00: MOUTH THREE Medical TIMES Branch DAILY NEEDED FOR COUGH benzonatate 2021-09 Yes [id number] TAKE 1 [facility] 100 mg 0-11 CAPSULE BY ity of capsule 00:00: MOUTH THREE Medical TIMES Branch DAILY NEEDED FOR COUGH benzonatate 2021-09 Yes [id number] TAKE 1 [facility] 100 mg 0-11 CAPSULE BY ity of capsule 00:00: MOUTH THREE Medical TIMES Branch DAILY NEEDED FOR COUGH benzonatate 2021-09 Yes [id number] TAKE 1 [facility] 100 mg 0-11 CAPSULE BY ity of capsule 00:00: MOUTH THREE Medical TIMES Branch DAILY NEEDED FOR COUGH benzonatate 2021-09 Yes [id number] TAKE 1 [facility] 100 mg 0-11 CAPSULE BY ity of capsule 00:00: MOUTH THREE Medical TIMES Branch DAILY NEEDED FOR COUGH benzonatate 2021-09 Yes [id number] TAKE 1 [facility] 100 mg 0-11 CAPSULE BY ity of capsule 00:00: MOUTH [place] 00 THREE Medical TIMES Branch DAILY NEEDED FOR COUGH benzonatate 2021-09 Yes [id number] TAKE 1 [facility] 100 mg 0-11 CAPSULE BY ity of capsule 00:00: MOUTH THREE Medical TIMES Branch DAILY NEEDED FOR COUGH benzonatate 2021-09 Yes [id number] TAKE 1 [facility] 100 mg 0-11 CAPSULE BY ity of capsule 00:00: MOUTH THREE Medical TIMES Branch DAILY NEEDED FOR COUGH benzonatate 2021-09 Yes [id number] TAKE 1 [facility] 100 mg 0-11 CAPSULE BY ity of capsule 00:00: MOUTH THREE Medical TIMES Branch DAILY NEEDED FOR COUGH benzonatate 2021-09 Yes [id number] TAKE 1 [facility] 100 mg 0-11 CAPSULE BY ity of capsule 00:00: MOUTH THREE Medical TIMES Branch DAILY NEEDED FOR COUGH benzonatate 2021-09 Yes [id number] TAKE 1 [facility] 100 mg 0-11 CAPSULE BY ity of capsule 00:00: MOUTH THREE Medical TIMES Branch DAILY NEEDED FOR COUGH benzonatate 2021-09 Yes [id number] TAKE 1 [facility] 100 mg 0-11 CAPSULE BY ity of capsule 00:00: MOUTH THREE Medical TIMES Branch DAILY NEEDED FOR COUGH benzonatate 2021-09 Yes [id number] TAKE 1 [facility] 100 mg 0-11 CAPSULE BY ity of capsule 00:00: MOUTH THREE Medical TIMES Branch DAILY NEEDED FOR COUGH benzonatate 2021-09 Yes [id number] TAKE 1 [facility] 100 mg 0-11 CAPSULE BY ity of capsule 00:00: MOUTH THREE Medical TIMES Branch DAILY NEEDED FOR COUGH benzonatate 2021-09 Yes [id number] TAKE 1 [facility] 100 mg 0-11 CAPSULE BY ity of capsule 00:00: MOUTH [place] THREE Medical TIMES Branch DAILY NEEDED FOR COUGH benzonatate 2021-09 Yes [id number] TAKE 1 [facility] 100 mg 0-11 CAPSULE BY ity of capsule 00:00: MOUTH THREE Medical TIMES Branch DAILY NEEDED FOR COUGH benzonatate 2021-09 Yes [id number] TAKE 1 [facility] 100 mg 0-11 CAPSULE BY ity of capsule 00:00: MOUTH THREE Medical TIMES Branch DAILY NEEDED FOR COUGH benzonatate 2021-09 Yes [id number] TAKE 1 [facility] 100 mg 0-11 CAPSULE BY ity of capsule 00:00: MOUTH [place] 00 THREE Medical TIMES Branch DAILY NEEDED FOR COUGH benzonatate 2021-09 Yes [id number] TAKE 1 [facility] 100 mg 0-11 CAPSULE BY ity of capsule 00:00: MOUTH THREE Medical TIMES Branch DAILY NEEDED FOR COUGH benzonatate 2021-09 Yes [id number] TAKE 1 [facility] 100 mg 0-11 CAPSULE BY ity of capsule 00:00: MOUTH THREE Medical TIMES Branch DAILY NEEDED FOR COUGH benzonatate 2021-09 Yes [id number] TAKE 1 [facility] 100 mg 0-11 CAPSULE BY ity of capsule 00:00: MOUTH THREE Medical TIMES Branch DAILY NEEDED FOR COUGH benzonatate 2021-09 Yes [id number] TAKE 1 [facility] 100 mg 0-11 CAPSULE BY ity of capsule 00:00: MOUTH THREE Medical TIMES Branch DAILY NEEDED FOR COUGH benzonatate 2021-09 Yes [id number] TAKE 1 [facility] 100 mg 0-11 CAPSULE BY ity of capsule 00:00: MOUTH THREE Medical TIMES Branch DAILY NEEDED FOR COUGH benzonatate 2021-09 Yes [id number] TAKE 1 [facility] 100 mg 0-11 CAPSULE BY ity of capsule 00:00: MOUTH THREE Medical TIMES Branch DAILY NEEDED FOR COUGH benzonatate 2021-09 Yes [id number] TAKE 1 [facility] 100 mg 0-11 CAPSULE BY ity of capsule 00:00: MOUTH THREE Medical TIMES Branch DAILY NEEDED FOR COUGH benzonatate 2021-09 Yes [id number] TAKE 1 [facility] 100 mg 0-11 CAPSULE BY ity of capsule 00:00: MOUTH [place] THREE Medical TIMES Branch DAILY NEEDED FOR COUGH benzonatate 2021-09 Yes [id number] TAKE 1 [facility] 100 mg 0-11 CAPSULE BY ity of capsule 00:00: MOUTH [place] 00 THREE Medical TIMES Branch DAILY NEEDED FOR COUGH benzonatate 2021-09 Yes [id number] TAKE 1 [facility] 100 mg 0-11 CAPSULE BY ity of capsule 00:00: MOUTH THREE Medical TIMES Branch DAILY NEEDED FOR COUGH benzonatate 2021-09 Yes [id number] TAKE 1 [facility] 100 mg 0-11 CAPSULE BY ity of capsule 00:00: MOUTH [place] THREE Medical TIMES Branch DAILY NEEDED FOR COUGH benzonatate 2021-09 Yes [id number] TAKE 1 [facility] 100 mg 0-11 CAPSULE BY ity of capsule 00:00: MOUTH THREE Medical TIMES Branch DAILY NEEDED FOR COUGH benzonatate 2021-09 Yes [id number] TAKE 1 [facility] 100 mg 0-11 CAPSULE BY ity of capsule 00:00: MOUTH THREE Medical TIMES Branch DAILY NEEDED FOR COUGH benzonatate 2021-09 Yes [id number] TAKE 1 [facility] 100 mg 0-11 CAPSULE BY ity of capsule 00:00: MOUTH THREE Medical TIMES Branch DAILY NEEDED FOR COUGH benzonatate 2021-09 Yes [id number] TAKE 1 [facility] 100 mg 0-11 CAPSULE BY ity of capsule 00:00: MOUTH THREE Medical TIMES Branch DAILY NEEDED FOR COUGH benzonatate 2021-09 Yes [id number] TAKE 1 [facility] 100 mg 0-11 CAPSULE BY ity of capsule 00:00: MOUTH THREE Medical TIMES Branch DAILY NEEDED FOR COUGH benzonatate 2021-09 Yes [id number] TAKE 1 [facility] 100 mg 0-11 CAPSULE BY ity of capsule 00:00: MOUTH THREE Medical TIMES Branch DAILY NEEDED FOR COUGH benzonatate 2021-09 Yes [id number] TAKE 1 [facility] 100 mg 0-11 CAPSULE BY ity of capsule 00:00: MOUTH THREE Medical TIMES Branch DAILY NEEDED FOR COUGH benzonatate 2021-09 Yes [id number] TAKE 1 [facility] 100 mg 0-11 CAPSULE BY ity of capsule 00:00: MOUTH THREE Medical TIMES Branch DAILY NEEDED FOR COUGH benzonatate 2021-09 Yes [id number] TAKE 1 [facility] 100 mg 0-11 CAPSULE BY ity of capsule 00:00: MOUTH [place] THREE Medical TIMES Branch DAILY NEEDED FOR COUGH benzonatate 2021-09 Yes [id number] TAKE 1 [facility] 100 mg 0-11 CAPSULE BY ity of capsule 00:00: MOUTH THREE Medical TIMES Branch DAILY NEEDED FOR COUGH benzonatate 2021-09 Yes [id number] TAKE 1 [facility] 100 mg 0-11 CAPSULE BY [facility] of capsule 00:00: MOUTH THREE Medical TIMES Branch DAILY NEEDED FOR COUGH benzonatate 2021-09 Yes [id number] TAKE 1 [facility] 100 mg 0-11 CAPSULE BY [facility] of capsule 00:00: MOUTH THREE Medical TIMES Branch DAILY NEEDED FOR COUGH benzonatate 2021-09 Yes [id number] TAKE 1 [facility] 100 mg 0-11 CAPSULE BY [facility]y of capsule 00:00: MOUTH THREE Medical TIMES Branch DAILY NEEDED FOR COUGH benzonatate 2021-09 Yes [id number] TAKE 1 [facility] 100 mg 0-11 CAPSULE BY ity of capsule 00:00: MOUTH THREE Medical TIMES Branch DAILY NEEDED FOR COUGH benzonatate 2021-09 Yes [id number] TAKE 1 [facility] 100 mg 0-11 CAPSULE BY [facility] of capsule 00:00: MOUTH THREE Medical TIMES Branch DAILY NEEDED FOR COUGH benzonatate 2021-09 Yes [id number] TAKE 1 [facility] 100 mg 0-11 CAPSULE BY [facility]y of capsule 00:00: MOUTH THREE Medical TIMES Branch DAILY NEEDED FOR COUGH benzonatate 2021-09 Yes [id number] TAKE 1 [facility] 100 mg 0-11 CAPSULE BY [facility]y of capsule 00:00: MOUTH THREE Medical TIMES Branch DAILY NEEDED FOR COUGH benzonatate 2021-09 Yes [id number] TAKE 1 [facility] 100 mg 0-11 CAPSULE BY ity of capsule 00:00: MOUTH THREE Medical TIMES Branch DAILY NEEDED FOR COUGH benzonatate 2021-09 Yes [id number] TAKE 1 [facility] 100 mg 0-11 CAPSULE BY ity of capsule 00:00: MOUTH THREE Medical TIMES Branch DAILY NEEDED FOR COUGH benzonatate 2021-09 Yes [id number] TAKE 1 [facility] 100 mg 0-11 CAPSULE BY [facility]y of capsule 00:00: MOUTH THREE Medical TIMES Branch DAILY NEEDED FOR COUGH benzonatate 2021-09 Yes [id number] TAKE 1 [facility] 100 mg 0-11 CAPSULE BY ity of capsule 00:00: MOUTH THREE Medical TIMES Branch DAILY NEEDED FOR COUGH benzonatate 2021-09 Yes [id number] TAKE 1 [facility] 100 mg 0-11 CAPSULE BY ity of capsule 00:00: MOUTH THREE Medical TIMES Branch DAILY NEEDED FOR COUGH benzonatate 2021-09 Yes [id number] TAKE 1 [facility] 100 mg 0-11 CAPSULE BY [facility]y of capsule 00:00: MOUTH THREE Medical TIMES Branch DAILY NEEDED FOR COUGH benzonatate 2021-09 Yes [id number] TAKE 1 [facility] 100 mg 0-11 CAPSULE BY ity of capsule 00:00: MOUTH [place] 00 THREE Medical TIMES Branch DAILY NEEDED FOR COUGH benzonatate 2021-09 Yes [id number] TAKE 1 [facility] 100 mg 0-11 CAPSULE BY ity of capsule 00:00: MOUTH [place] 00 THREE Medical TIMES Branch DAILY NEEDED FOR COUGH benzonatate 2021-09- No [id number] TAKE 1 [facility] 100 mg 0-11 02-24 CAPSULE BY ity of capsule 00:00: 00:00 MOUTH [place] 00 :00 THREE Medical TIMES Branch DAILY NEEDED FOR COUGH benzonatate 2021-09- No [id number] TAKE 1 [facility] 100 mg 0-11 02-24 CAPSULE BY ity of capsule 00:00: 00:00 MOUTH [place] 00 :00 THREE Medical TIMES Branch DAILY NEEDED FOR COUGH benzonatate 2021-09- No [id number] TAKE 1 [facility] 100 mg 0-11 02-24 CAPSULE BY ity of capsule 00:00: 00:00 MOUTH [place] 00 :00 THREE Medical TIMES Branch DAILY [...] [place] tablet 10 bedtime. Medical Branch ketorolac 2021- 15mg 15 mg, Un[facility] rs (TORADOL) 06-21 Slow IV ity of injection 06:15: 05:13 Push, [place] 15 mg 00 :00 ONCE, 1 Medical dose, On Branch 06/21/22 at 0115, GIGI albuterol Yes [id number] 2{puff} Inhale 2 [facility] 90 9-22 Puffs ity of mcg/actuati 00:00: every 6 [place] [facility] on inhaler 00 (six) Medical hours as Branch needed for Wheezing or Shortness of Breath. albuterol Yes [id number] 2{puff} Inhale 2 [facility] 90 9-22 Puffs ity of mcg/actuati 00:00: every 6 [place] on inhaler 00 (six) Medical hours as Branch needed for Wheezing or Shortness of Breath. albuterol Yes [id number] 2{puff} Inhale 2 [facility] 90 9-22 Puffs [facility]y of mcg/actuati 00:00: every 6 [place] on inhaler 00 (six) Medical hours as Branch needed for Wheezing or Shortness of Breath. albuterol Yes [id number] 2{puff} Inhale 2 [facility] 90 9-22 Puffs [facility]y of mcg/actuati 00:00: every 6 [place] on inhaler 00 (six) Medical hours as Branch needed for Wheezing or Shortness of Breath. albuterol Yes [id number] 2{puff} Inhale 2 [facility] 90 9-22 Puffs [facility]y of mcg/actuati 00:00: every 6 [place] on inhaler 00 (six) Medical hours as Branch needed for Wheezing or Shortness of Breath. albuterol Yes [id number] 2{puff} Inhale 2 [facility] 90 9-22 Puffs [facility]y of mcg/actuati 00:00: every 6 [place] on inhaler 00 (six) Medical hours as Branch needed for Wheezing or Shortness of Breath. albuterol Yes [id number] 2{puff} Inhale 2 [facility] 90 9-22 Puffs [facility]y of mcg/actuati 00:00: every 6 [place] on inhaler 00 (six) Medical hours as Branch needed for Wheezing or Shortness of Breath. albuterol Yes [id number] 2{puff} Inhale 2 [facility] 90 9-22 Puffs [facility]y of mcg/actuati 00:00: every 6 [place] on inhaler 00 (six) Medical hours as Branch needed for Wheezing or Shortness of Breath. albuterol Yes [id number] 2{puff} Inhale 2 [facility] 90 9-22 Puffs [facility]y of mcg/actuati 00:00: every 6 [place] on inhaler 00 (six) Medical hours as Branch needed for Wheezing or Shortness of Breath. albuterol Yes [id number] 2{puff} Inhale 2 [facility] 90 9-22 Puffs [facility]y of mcg/actuati 00:00: every 6 [place] on inhaler 00 (six) Medical hours as Branch needed for Wheezing or Shortness of Breath. albuterol Yes [id number] 2{puff} Inhale 2 [facility] 90 9-22 Puffs ity of mcg/actuati 00:00: every 6 [place] on inhaler 00 (six) Medical hours as Branch needed for Wheezing or Shortness of Breath. albuterol Yes [id number] 2{puff} Inhale 2 [facility] 90 9-22 Puffs ity of mcg/actuati 00:00: every 6 [place] on inhaler 00 (six) Medical hours as Branch needed for Wheezing or Shortness of Breath. albuterol Yes [id number] 2{puff} Inhale 2 [facility] 90 9-22 Puffs ity of mcg/actuati 00:00: every 6 [place] on inhaler 00 (six) Medical hours as Branch needed for Wheezing or Shortness of Breath. albuterol Yes [id number] 2{puff} Inhale 2 [facility] 90 9-22 Puffs [facility]y of mcg/actuati 00:00: every 6 [place] on inhaler 00 (six) Medical hours as Branch needed for Wheezing or Shortness of Breath. albuterol Yes [id number] 2{puff} Inhale 2 [facility] 90 9-22 Puffs ity of mcg/actuati 00:00: every 6 [place] on inhaler 00 (six) Medical hours as Branch needed for Wheezing or Shortness of Breath. albuterol Yes [id number] 2{puff} Inhale 2 [facility] 90 9-22 Puffs ity of mcg/actuati 00:00: every 6 [place] on inhaler 00 (six) Medical hours as Branch needed for Wheezing or Shortness of Breath. albuterol Yes [id number] 2{puff} Inhale 2 [facility] 90 9-22 Puffs ity of mcg/actuati 00:00: every 6 [place] on inhaler 00 (six) Medical hours as Branch needed for Wheezing or Shortness of Breath. albuterol Yes [id number] 2{puff} Inhale 2 [facility] 90 9-22 Puffs [facility]y of mcg/actuati 00:00: every 6 [place] on inhaler 00 (six) Medical hours as Branch needed for Wheezing or Shortness of Breath. albuterol Yes [id number] 2{puff} Inhale 2 [facility] 90 9-22 Puffs ity of mcg/actuati 00:00: every 6 [place] on inhaler 00 (six) Medical hours as Branch needed for Wheezing or Shortness of Breath. albuterol Yes [id number] 2{puff} Inhale 2 [facility] 90 9-22 Puffs ity of mcg/actuati 00:00: every 6 [place] on inhaler 00 (six) Medical hours as Branch needed for Wheezing or Shortness of Breath. albuterol Yes [id number] 2{puff} Inhale 2 [facility] 90 9-22 Puffs [facility]y of mcg/actuati 00:00: every 6 [place] on inhaler 00 (six) Medical hours as Branch needed for Wheezing or Shortness of Breath. albuterol Yes [id number] 2{puff} Inhale 2 [facility] 90 9-22 Puffs [facility]y of mcg/actuati 00:00: every 6 [place] on inhaler 00 (six) Medical hours as Branch needed for Wheezing or Shortness of Breath. albuterol Yes [id number] 2{puff} Inhale 2 [facility] 90 9-22 Puffs ity of mcg/actuati 00:00: every 6 [place] on inhaler 00 (six) Medical hours as Branch needed for Wheezing or Shortness of Breath. albuterol Yes [id number] 2{puff} Inhale 2 [facility] 90 9-22 Puffs ity of mcg/actuati 00:00: every 6 [place] on inhaler 00 (six) Medical hours as Branch needed for Wheezing or Shortness of Breath. albuterol Yes [id number] 2{puff} Inhale 2 [facility] 90 9-22 Puffs ity of mcg/actuati 00:00: every 6 [place] on inhaler 00 (six) Medical hours as Branch needed for Wheezing or Shortness of Breath. albuterol Yes [id number] 2{puff} Inhale 2 [facility] 90 9-22 Puffs ity of mcg/actuati 00:00: every 6 [place] on inhaler 00 (six) Medical hours as Branch needed for Wheezing or Shortness of Breath. albuterol Yes [id number] 2{puff} Inhale 2 [facility] 90 9-22 Puffs ity of mcg/actuati 00:00: every 6 [place] on inhaler 00 (six) Medical hours as Branch needed for Wheezing or Shortness of Breath. albuterol Yes [id number] 2{puff} Inhale 2 [facility] 90 9-22 Puffs ity of mcg/actuati 00:00: every 6 [place] on inhaler 00 (six) Medical hours as Branch needed for Wheezing or Shortness of Breath. albuterol Yes [id number] 2{puff} Inhale 2 [facility] 90 9-22 Puffs ity of mcg/actuati 00:00: every 6 [place] on inhaler 00 (six) Medical hours as Branch needed for Wheezing or Shortness of Breath. albuterol Yes [id number] 2{puff} Inhale 2 [facility] 90 9-22 Puffs ity of mcg/actuati 00:00: every 6 [place] on inhaler 00 (six) Medical hours as Branch needed for Wheezing or Shortness of Breath. albuterol Yes [id number] 2{puff} Inhale 2 [facility] 90 9-22 Puffs ity of mcg/actuati 00:00: every 6 [place] on inhaler 00 (six) Medical hours as Branch needed for Wheezing or Shortness of Breath. albuterol Yes [id number] 2{puff} Inhale 2 [facility] 90 9-22 Puffs ity of mcg/actuati 00:00: every 6 [place] on inhaler 00 (six) Medical hours as Branch needed for Wheezing or Shortness of Breath. albuterol Yes [id number] 2{puff} Inhale 2 [facility] 90 9-22 Puffs ity of mcg/actuati 00:00: every 6 [place] on inhaler 00 (six) Medical hours as Branch needed for Wheezing or Shortness of Breath. albuterol Yes [id number] 2{puff} Inhale 2 [facility] 90 9-22 Puffs ity of mcg/actuati 00:00: every 6 [place] on inhaler 00 (six) Medical hours as Branch needed for Wheezing or Shortness of Breath. albuterol Yes [id number] 2{puff} Inhale 2 [facility] 90 9-22 Puffs ity of mcg/actuati 00:00: every 6 [place] on inhaler 00 (six) Medical hours as Branch needed for Wheezing or Shortness of Breath. albuterol Yes [id number] 2{puff} Inhale 2 [facility] 90 9-22 Puffs ity of mcg/actuati 00:00: every 6 [place] on inhaler 00 (six) Medical hours as Branch needed for Wheezing or Shortness of Breath. albuterol Yes [id number] 2{puff} Inhale 2 [facility] 90 9-22 Puffs ity of mcg/actuati 00:00: every 6 [place] on inhaler 00 (six) Medical hours as Branch needed for Wheezing or Shortness of Breath. albuterol Yes [id number] 2{puff} Inhale 2 [facility] 90 9-22 Puffs ity of mcg/actuati 00:00: every 6 [place] on inhaler 00 (six) Medical hours as Branch needed for Wheezing or Shortness of Breath. albuterol Yes [id number] 2{puff} Inhale 2 [facility] 90 9-22 Puffs ity of mcg/actuati 00:00: every 6 [place] on inhaler 00 (six) Medical hours as Branch needed for Wheezing or Shortness of Breath. albuterol Yes [id number] 2{puff} Inhale 2 [facility] 90 9-22 Puffs ity of mcg/actuati 00:00: every 6 [place] on inhaler 00 (six) Medical hours as Branch needed for Wheezing or Shortness of Breath. albuterol Yes [id number] 2{puff} Inhale 2 [facility] 90 9-22 Puffs ity of mcg/actuati 00:00: every 6 [place] on inhaler 00 (six) Medical hours as Branch needed for Wheezing or Shortness of Breath. albuterol Yes [id number] 2{puff} Inhale 2 [facility] 90 9-22 Puffs ity of mcg/actuati 00:00: every 6 [place] on inhaler 00 (six) Medical hours as Branch needed for Wheezing or Shortness of Breath. albuterol Yes [id number] 2{puff} Inhale 2 [facility] 90 9-22 Puffs ity of mcg/actuati 00:00: every 6 [place] on inhaler 00 (six) Medical hours as Branch needed for Wheezing or Shortness of Breath. albuterol Yes [id number] 2{puff} Inhale 2 [facility] 90 9-22 Puffs ity of mcg/actuati 00:00: every 6 [place] on inhaler 00 (six) Medical hours as Branch needed for Wheezing or Shortness of Breath. albuterol Yes [id number] 2{puff} Inhale 2 [facility] 90 9-22 Puffs ity of mcg/actuati 00:00: every 6 [place] on inhaler 00 (six) Medical hours as Branch needed for Wheezing or Shortness of Breath. albuterol Yes [id number] 2{puff} Inhale 2 [facility] 90 9-22 Puffs ity of mcg/actuati 00:00: every 6 [place] on inhaler 00 (six) Medical hours as Branch needed for Wheezing or Shortness of Breath. albuterol Yes [id number] 2{puff} Inhale 2 [facility] 90 9-22 Puffs ity of mcg/actuati 00:00: every 6 [place] on inhaler 00 (six) Medical hours as Branch needed for Wheezing or Shortness of Breath. albuterol Yes [id number] 2{puff} Inhale 2 [facility] 90 9-22 Puffs ity of mcg/actuati 00:00: every 6 [place] on inhaler 00 (six) Medical hours as Branch needed for Wheezing or Shortness of Breath. albuterol Yes [id number] 2{puff} Inhale 2 [facility] 90 9-22 Puffs ity of mcg/actuati 00:00: every 6 [place] on inhaler 00 (six) Medical hours as Branch needed for Wheezing or Shortness of Breath. albuterol Yes [id number] 2{puff} Inhale 2 [facility] 90 9-22 Puffs ity of mcg/actuati 00:00: every 6 [place] on inhaler 00 (six) Medical hours as Branch needed for Wheezing or Shortness of Breath. albuterol 0 Yes [id number] 2{puff} Inhale 2 [facility] 90 9-22 Puffs ity of mcg/actuati 00:00: every 6 [place] on inhaler 00 (six) Medical hours as Branch needed for Wheezing or Shortness of Breath. albuterol 0 3- No [id number] 2{puff} Inhale 2 [facility] 90 9-22 01-15 Puffs ity of mcg/actuati 00:00: 00:00 every 6 [place] on inhaler 00 :00 (six) Medical hours as Branch needed for Wheezing or Shortness of Breath. fluticasone 0 Yes [id number] 1{puff} Inhale 1 [facility] furoate-natan 9-13 Puff ity of anteroL 00:00: daily. [address]) Branch 200-25 mcg/dose DsDv fluticasone 0 Yes [id number] 1{puff} Inhale 1 [facility] furoate-natan 9-13 Puff ity of anteroL 00:00: daily. [address]) Branch 200-25 mcg/dose DsDv fluticasone 0 Yes [id number] 1{puff} Inhale 1 [facility] furoate-natan 9-13 Puff ity of anteroL 00:00: daily. [address]) Branch 200-25 mcg/dose DsDv fluticasone 0 Yes [id number] 1{puff} Inhale 1 [facility] furoate-natan 9-13 Puff ity of anteroL 00:00: daily. [address]) Branch 200-25 mcg/dose DsDv fluticasone 2021-0 Yes [id number] 1{puff} Inhale 1 [facility] furoate-natan 9-13 Puff ity of anteroL 00:00: daily. [place] ([address]) Branch 200-25 mcg/dose DsDv fluticasone 2021-0 Yes [id number] 1{puff} Inhale 1 [facility] furoate-natan 9-13 Puff ity of anteroL 00:00: daily. [place] ([address]) Branch 200-25 mcg/dose DsDv fluticasone 0 Yes [id number] 1{puff} Inhale 1 [facility] furoate-natan 9-13 Puff ity of anteroL 00:00: daily. [address]) Branch 200-25 mcg/dose DsDv fluticasone 0 Yes [id number] 1{puff} Inhale 1 [facility] furoate-natan 9-13 Puff ity of anteroL 00:00: daily. [address]) Branch 200-25 mcg/dose DsDv fluticasone 0 Yes [id number] 1{puff} Inhale 1 [facility] furoate-natan 9-13 Puff ity of anteroL 00:00: daily. [address]) Branch 200-25 mcg/dose DsDv fluticasone 0 Yes [id number] 1{puff} Inhale 1 [facility] furoate-natan 9-13 Puff ity of anteroL 00:00: daily. [address]) Branch 200-25 mcg/dose DsDv fluticasone 0 Yes [id number] 1{puff} Inhale 1 [facility] furoate-natan 9-13 Puff ity of anteroL 00:00: daily. [address]) Branch 200-25 mcg/dose DsDv fluticasone 0 Yes [id number] 1{puff} Inhale 1 [facility] furoate-natan 9-13 Puff ity of anteroL 00:00: daily. [address]) Branch 200-25 mcg/dose DsDv fluticasone 0 Yes [id number] 1{puff} Inhale 1 [facility] furoate-natan 9-13 Puff ity of anteroL 00:00: daily. [place] ([address]) Branch 200-25 mcg/dose DsDv fluticasone 2021-0 Yes [id number] 1{puff} Inhale 1 [facility] furoate-natan 9-13 Puff ity of anteroL 00:00: daily. [address]) Branch 200-25 mcg/dose DsDv fluticasone 2021-0 Yes [id number] 1{puff} Inhale 1 [facility] furoate-natan 9-13 Puff ity of anteroL 00:00: daily. [place] ([address]) Branch 200-25 mcg/dose DsDv fluticasone 0 Yes [id number] 1{puff} Inhale 1 [facility] furoate-natan 9-13 Puff ity of anteroL 00:00: daily. [place] ([address]) Branch 200-25 mcg/dose DsDv fluticasone 0 Yes [id number] 1{puff} Inhale 1 [facility] furoate-natan 9-13 Puff ity of anteroL 00:00: daily. [place] ([address]) Branch 200-25 mcg/dose DsDv fluticasone 0 Yes [id number] 1{puff} Inhale 1 [facility] furoate-natan 9-13 Puff ity of anteroL 00:00: daily. [place] ([address]) Branch 200-25 mcg/dose DsDv fluticasone 0 Yes [id number] 1{puff} Inhale 1 [facility] furoate-natan 9-13 Puff ity of anteroL 00:00: daily. [place] ([address]) Branch 200-25 mcg/dose DsDv fluticasone 0 Yes [id number] 1{puff} Inhale 1 [facility] furoate-natan 9-13 Puff ity of anteroL 00:00: daily. [address]) Branch 200-25 mcg/dose DsDv fluticasone 0 Yes [id number] 1{puff} Inhale 1 [facility] furoate-natan 9-13 Puff ity of anteroL 00:00: daily. [place] ([address]) Branch 200-25 mcg/dose DsDv fluticasone 2021-0 Yes [id number] 1{puff} Inhale 1 [facility] furoate-natan 9-13 Puff ity of anteroL 00:00: daily. [place] ([address]) Branch 200-25 mcg/dose DsDv fluticasone 2021-0 Yes [id number] 1{puff} Inhale 1 [facility] furoate-natan 9-13 Puff ity of anteroL 00:00: daily. [place] ([address]) Branch 200-25 mcg/dose DsDv fluticasone 2021-0 Yes [id number] 1{puff} Inhale 1 [facility] furoate-natan 9-13 Puff ity of anteroL 00:00: daily. [place] ([address]) Branch 200-25 mcg/dose DsDv fluticasone 2021-0 Yes [id number] 1{puff} Inhale 1 [facility] furoate-natan 9-13 Puff ity of anteroL 00:00: daily. [place] ([address]) Branch 200-25 mcg/dose DsDv fluticasone 2021-0 Yes [id number] 1{puff} Inhale 1 [facility] furoate-natan 9-13 Puff ity of anteroL 00:00: daily. [place] ([address]) Branch 200-25 mcg/dose DsDv fluticasone 2021-0 Yes [id number] 1{puff} Inhale 1 [facility] furoate-natan 9-13 Puff ity of anteroL 00:00: daily. [place] ([address]) Branch 200-25 mcg/dose DsDv fluticasone 2021-0 Yes [id number] 1{puff} Inhale 1 [facility] furoate-natan 9-13 Puff ity of anteroL 00:00: daily. [place] ([address]) Branch 200-25 mcg/dose DsDv fluticasone 2021-0 Yes [id number] 1{puff} Inhale 1 [facility] furoate-natan 9-13 Puff ity of anteroL 00:00: daily. [place] ([address]) Branch 200-25 mcg/dose DsDv fluticasone 2021-0 Yes [id number] 1{puff} Inhale 1 [facility] furoate-natan 9-13 Puff ity of anteroL 00:00: daily. [place] ([address]) Branch 200-25 mcg/dose DsDv fluticasone 2-0 Yes [id number] 1{puff} Inhale 1 [facility] furoate-natan 9-13 Puff ity of anteroL 00:00: daily. [place] ([address]) Branch 200-25 mcg/dose DsDv fluticasone 0 Yes [id number] 1{puff} Inhale 1 [facility] furoate-natan 9-13 Puff ity of anteroL 00:00: daily. [address]) Branch 200-25 mcg/dose DsDv fluticasone 0 Yes [id number] 1{puff} Inhale 1 [facility] furoate-natan 9-13 Puff ity of anteroL 00:00: daily. [address]) Branch 200-25 mcg/dose DsDv fluticasone 0 Yes [id number] 1{puff} Inhale 1 [facility] furoate-natan 9-13 Puff ity of anteroL 00:00: daily. [address]) Branch 200-25 mcg/dose DsDv fluticasone 0 Yes [id number] 1{puff} Inhale 1 [facility] furoate-natan 9-13 Puff ity of anteroL 00:00: daily. [address]) Branch 200-25 mcg/dose DsDv fluticasone 0 Yes [id number] 1{puff} Inhale 1 [facility] furoate-natan 9-13 Puff ity of anteroL 00:00: daily. [address]) Branch 200-25 mcg/dose DsDv fluticasone 0 Yes [id number] 1{puff} Inhale 1 [facility] furoate-natan 9-13 Puff ity of anteroL 00:00: daily. [address]) Branch 200-25 mcg/dose DsDv fluticasone 0 Yes [id number] 1{puff} Inhale 1 [facility] furoate-natan 9-13 Puff ity of anteroL 00:00: daily. [place] ([address]) Branch 200-25 mcg/dose DsDv fluticasone 2021-0 Yes [id number] 1{puff} Inhale 1 [facility] furoate-natan 9-13 Puff ity of anteroL 00:00: daily. [address]) Branch 200-25 mcg/dose DsDv fluticasone 2021-0 Yes [id number] 1{puff} Inhale 1 [facility] furoate-natan 9-13 Puff ity of anteroL 00:00: daily. [place] ([address]) Branch 200-25 mcg/dose DsDv fluticasone 0 Yes [id number] 1{puff} Inhale 1 [facility] furoate-natan 9-13 Puff ity of anteroL 00:00: daily. [place] ([address]) Branch 200-25 mcg/dose DsDv fluticasone 0 Yes [id number] 1{puff} Inhale 1 [facility] furoate-natan 9-13 Puff ity of anteroL 00:00: daily. [place] ([address]) Branch 200-25 mcg/dose DsDv fluticasone 0 Yes [id number] 1{puff} Inhale 1 [facility] furoate-natan 9-13 Puff ity of anteroL 00:00: daily. [place] ([address]) Branch 200-25 mcg/dose DsDv fluticasone 0 Yes [id number] 1{puff} Inhale 1 [facility] furoate-natan 9-13 Puff ity of anteroL 00:00: daily. [place] ([address]) Branch 200-25 mcg/dose DsDv fluticasone 0 Yes [id number] 1{puff} Inhale 1 [facility] furoate-natan 9-13 Puff ity of anteroL 00:00: daily. [address]) Branch 200-25 mcg/dose DsDv fluticasone 0 Yes [id number] 1{puff} Inhale 1 [facility] furoate-natan 9-13 Puff ity of anteroL 00:00: daily. [place] ([address]) Branch 200-25 mcg/dose DsDv fluticasone 2021-0 Yes [id number] 1{puff} Inhale 1 [facility] furoate-natan 9-13 Puff ity of anteroL 00:00: daily. [place] ([address]) Branch 200-25 mcg/dose DsDv fluticasone 2021-0 Yes [id number] 1{puff} Inhale 1 [facility] furoate-natan 9-13 Puff ity of anteroL 00:00: daily. [place] ([address]) Branch 200-25 mcg/dose DsDv fluticasone 2021-0 Yes [id number] 1{puff} Inhale 1 [facility] furoate-natan 9-13 Puff ity of anteroL 00:00: daily. [place] ([address]) Branch 200-25 mcg/dose DsDv fluticasone 2021-0 Yes [id number] 1{puff} Inhale 1 [facility] furoate-natan 9-13 Puff ity of anteroL 00:00: daily. [place] ([address]) Branch 200-25 mcg/dose DsDv fluticasone 2021-0 Yes [id number] 1{puff} Inhale 1 [facility] furoate-natan 9-13 Puff ity of anteroL 00:00: daily. [place] ([address]) Branch 200-25 mcg/dose DsDv fluticasone 2021-0 Yes [id number] 1{puff} Inhale 1 [facility] furoate-natan 9-13 Puff ity of anteroL 00:00: daily. [place] ([address]) Branch 200-25 mcg/dose DsDv fluticasone 2021-0 Yes [id number] 1{puff} Inhale 1 [facility] furoate-natan 9-13 Puff ity of anteroL 00:00: daily. [place] ([address]) Branch 200-25 mcg/dose DsDv fluticasone 2021-0 Yes [id number] 1{puff} Inhale 1 [facility] furoate-natan 9-13 Puff ity of anteroL 00:00: daily. [place] ([address]) Branch 200-25 mcg/dose DsDv fluticasone 2021-0 Yes [id number] 1{puff} Inhale 1 [facility] furoate-natan 9-13 Puff ity of anteroL 00:00: daily. [place] ([address]) Branch 200-25 mcg/dose DsDv fluticasone 2-0 Yes [id number] 1{puff} Inhale 1 [facility] furoate-natan 9-13 Puff ity of anteroL 00:00: daily. [place] ([address]) Branch 200-25 mcg/dose DsDv fluticasone 0 Yes [id number] 1{puff} Inhale 1 [facility] furoate-natan 9-13 Puff ity of anteroL 00:00: daily. [address]) Branch 200-25 mcg/dose DsDv fluticasone 0 Yes [id number] 1{puff} Inhale 1 [facility] furoate-natan 9-13 Puff ity of anteroL 00:00: daily. [address]) Branch 200-25 mcg/dose DsDv fluticasone 0 Yes [id number] 1{puff} Inhale 1 [facility] furoate-natan 9-13 Puff ity of anteroL 00:00: daily. [address]) Branch 200-25 mcg/dose DsDv fluticasone 0 Yes [id number] 1{puff} Inhale 1 [facility] furoate-natan 9-13 Puff ity of anteroL 00:00: daily. [address]) Branch 200-25 mcg/dose DsDv fluticasone 0 Yes [id number] 1{puff} Inhale 1 [facility] furoate-natan 9-13 Puff ity of anteroL 00:00: daily. [address]) Branch 200-25 mcg/dose DsDv fluticasone 0 Yes [id number] 1{puff} Inhale 1 [facility] furoate-natan 9-13 Puff ity of anteroL 00:00: daily. [address]) Branch 200-25 mcg/dose DsDv fluticasone 0 Yes [id number] 1{puff} Inhale 1 [facility] furoate-natan 9-13 Puff ity of anteroL 00:00: daily. [place] ([address]) Branch 200-25 mcg/dose DsDv fluticasone 2021-0 Yes [id number] 1{puff} Inhale 1 [facility] furoate-natan 9-13 Puff ity of anteroL 00:00: daily. [address]) Branch 200-25 mcg/dose DsDv fluticasone 2021-0 Yes [id number] 1{puff} Inhale 1 [facility] furoate-natan 9-13 Puff ity of anteroL 00:00: daily. [place] ([address]) Branch 200-25 mcg/dose DsDv fluticasone 0 Yes [id number] 1{puff} Inhale 1 Univers furoate-natan 9-13 Puff ity of anteroL 00:00: daily. [place] ([address]) Branch 200-25 mcg/dose DsDv fluticasone 0 Yes [id number] 1{puff} Inhale 1 [facility] furoate-natan 9-13 Puff ity of anteroL 00:00: daily. [place] ([address]) Branch 200-25 mcg/dose DsDv fluticasone 0 Yes [id number] 1{puff} Inhale 1 [facility] furoate-natan 9-13 Puff ity of anteroL 00:00: daily. [place] ([address]) Branch 200-25 mcg/dose DsDv fluticasone 0 Yes [id number] 1{puff} Inhale 1 [facility] furoate-natan 9-13 Puff ity of anteroL 00:00: daily. [place] ([address]) Branch 200-25 mcg/dose DsDv fluticasone 0 Yes [id number] 1{puff} Inhale 1 [facility] furoate-natan 9-13 Puff ity of anteroL 00:00: daily. [address]) Branch 200-25 mcg/dose DsDv fluticasone 0 Yes [id number] 1{puff} Inhale 1 [facility] furoate-natan 9-13 Puff ity of anteroL 00:00: daily. [place] ([address]) Branch 200-25 mcg/dose DsDv fluticasone 2021-0 Yes [id number] 1{puff} Inhale 1 [facility] furoate-natan 9-13 Puff ity of anteroL 00:00: daily. [place] ([address]) Branch 200-25 mcg/dose DsDv fluticasone 2021-0 Yes [id number] 1{puff} Inhale 1 [facility] furoate-natan 9-13 Puff ity of anteroL 00:00: daily. [place] ([address]) Branch 200-25 mcg/dose DsDv fluticasone 2021-0 Yes [id number] 1{puff} Inhale 1 [facility] furoate-natan 9-13 Puff ity of anteroL 00:00: daily. [place] ([address]) Branch 200-25 mcg/dose DsDv fluticasone 2021-0 Yes [id number] 1{puff} Inhale 1 [facility] furoate-natan 9-13 Puff ity of anteroL 00:00: daily. [place] ([address]) Branch 200-25 mcg/dose DsDv fluticasone 2021-0 Yes [id number] 1{puff} Inhale 1 [facility] furoate-natan 9-13 Puff ity of anteroL 00:00: daily. [place] ([address]) Branch 200-25 mcg/dose DsDv fluticasone 2021-0 Yes [id number] 1{puff} Inhale 1 [facility] furoate-natan 9-13 Puff ity of anteroL 00:00: daily. [place] ([address]) Branch 200-25 mcg/dose DsDv fluticasone 2021-0 Yes [id number] 1{puff} Inhale 1 [facility] furoate-ntaan 9-13 Puff ity of anteroL 00:00: daily. [place] ([address]) Branch 200-25 mcg/dose DsDv fluticasone 2021-0 Yes [id number] 1{puff} Inhale 1 [facility] furoate-natan 9-13 Puff ity of anteroL 00:00: daily. [place] ([address]) Branch 200-25 mcg/dose DsDv fluticasone 2021-0 Yes [id number] 1{puff} Inhale 1 [facility] furoate-natan 9-13 Puff ity of anteroL 00:00: daily. [place] ([address]) Branch 200-25 mcg/dose DsDv fluticasone 2-0 Yes [id number] 1{puff} Inhale 1 [facility] furoate-natan 9-13 Puff ity of anteroL 00:00: daily. [place] ([address]) Branch 200-25 mcg/dose DsDv fluticasone 0 Yes [id number] 1{puff} Inhale 1 [facility] furoate-natan 9-13 Puff ity of anteroL 00:00: daily. [address]) Branch 200-25 mcg/dose DsDv fluticasone 0 Yes [id number] 1{puff} Inhale 1 [facility] furoate-natan 9-13 Puff ity of anteroL 00:00: daily. [address]) Branch 200-25 mcg/dose DsDv fluticasone 0 Yes [id number] 1{puff} Inhale 1 [facility] furoate-natan 9-13 Puff ity of anteroL 00:00: daily. [address]) Branch 200-25 mcg/dose DsDv fluticasone 0 Yes [id number] 1{puff} Inhale 1 [facility] furoate-natan 9-13 Puff ity of anteroL 00:00: daily. [address]) Branch 200-25 mcg/dose DsDv fluticasone 0 Yes [id number] 1{puff} Inhale 1 [facility] furoate-natan 9-13 Puff ity of anteroL 00:00: daily. [address]) Branch 200-25 mcg/dose DsDv fluticasone 0 Yes [id number] 1{puff} Inhale 1 [facility] furoate-natan 9-13 Puff ity of anteroL 00:00: daily. [address]) Branch 200-25 mcg/dose DsDv fluticasone 0 Yes [id number] 1{puff} Inhale 1 [facility] furoate-natan 9-13 Puff ity of anteroL 00:00: daily. [place] ([address]) Branch 200-25 mcg/dose DsDv fluticasone 2021-0 Yes [id number] 1{puff} Inhale 1 [facility] furoate-natan 9-13 Puff ity of anteroL 00:00: daily. [address]) Branch 200-25 mcg/dose DsDv fluticasone 2021-0 Yes [id number] 1{puff} Inhale 1 [facility] furoate-natan 9-13 Puff ity of anteroL 00:00: daily. [place] ([facility]) Branch 200-25 mcg/dose DsDv fluticasone 0 Yes [id number] 1{puff} Inhale 1 [facility] furoate-natan 9-13 Puff ity of anteroL 00:00: daily. [place] ([facility]) Branch 200-25 mcg/dose DsDv fluticasone 0 Yes [id number] 1{puff} Inhale 1 [facility] furoate-natan 9-13 Puff ity of anteroL 00:00: daily. [place] ([address]) Branch 200-25 mcg/dose DsDv fluticasone 0 3- No [id number] 1{puff} Inhale 1 [facility] furoate-natan 9-13 03-21 Puff ity of anteroL 00:00: 00:00 daily. [place] ([facility] 00 : [facility]) Branch 200-25 mcg/dose DsDv fluticasone 0 2023- No [id number] 1{puff} Inhale 1 [facility] furoate-natan 9-13 03-21 Puff ity of anteroL 00:00: 00:00 daily. [place] ([facility] 00 : [facility]) Branch 200-25 mcg/dose DsDv fluticasone 0 3- No [id number] 1{puff} Inhale 1 [facility] furoate-natan 9-13 03-21 Puff ity of anteroL 00:00: 00:00 daily. [place] ([facility] 00 :00 [facility]) Branch 200-25 mcg/dose DsDv levETIRAcet 2021-0 Yes [id number] 1000mg Take 1 [facility] am 1,000 mg 9-06 tablet by ity of tablet 00:00: mouth in [place] 00 the Medical morning Branch and 1 tablet in the evening. ubrogepant 0 Yes [id number] 100mg Take 100 [facility] (UBRELVY) 9-06 mg by ity of 100 mg Tab 00:00: mouth as [place] 00 needed Medical (migraine) Branch . Take at onset of migraine, repeat x1 in 2h if headache remains nortriptyli 2022-0 Yes [id number] 20mg Take 2 [facility] ne 10 mg 9-06 capsules ity of capsule 00:00: by mouth [place] 00 at Medical bedtime. Branch levETIRAcet 2021-0 Yes [id number] 1000mg Take 1 [facility] am 1,000 mg 9-06 tablet by ity of tablet 00:00: mouth in [place] 00 the Medical morning Branch and 1 tablet in the evening. ubrogepant 2022-0 Yes [id number] 100mg Take 100 [facility] (UBRELVY) 9-06 mg by ity of 100 mg Tab 00:00: mouth as [place] needed Medical (migraine) Branch . Take at onset of migraine, repeat x1 in 2h if headache remains nortriptyli 2021-0 Yes [id number] 20mg Take 2 [facility] ne 10 mg 9-06 capsules ity of capsule 00:00: by mouth [place] [address] at Medical bedtime. Branch levETIRAcet 2-0 Yes [id number] 1000mg Take 1 [facility] am 1,000 mg 9-06 tablet by ity of tablet 00:00: mouth in [place] 00 the Medical morning Branch and 1 tablet in the evening. ubrogepant 2-0 Yes [id number] 100mg Take 100 [facility] (UBRELVY) 9-06 mg by ity of 100 mg Tab 00:00: mouth as [place] needed Medical (migraine) Branch . Take at onset of migraine, repeat x1 in 2h if headache remains nortriptyli 2021-0 Yes [id number] 20mg Take 2 [facility] ne 10 mg 9-06 capsules ity of capsule 00:00: by mouth [place] [address] at Medical bedtime. Branch levETIRAcet 2-0 Yes [id number] 1000mg Take 1 [facility] am 1,000 mg 9-06 tablet by ity of tablet 00:00: mouth in [place] [address] the Medical morning Branch and 1 tablet in the evening. ubrogepant 2022-0 Yes [id number] 100mg Take 100 [facility] (UBRELVY) 9-06 mg by ity of 100 mg Tab 00:00: mouth as [place] needed Medical (migraine) Branch . Take at onset of migraine, repeat x1 in 2h if headache remains nortriptyli 2-0 Yes [id number] 20mg Take 2 [facility] ne 10 mg 9-06 capsules ity of capsule 00:00: by mouth [place] 00 at Medical bedtime. Branch levETIRAcet 2-0 Yes [id number] 1000mg Take 1 [facility] am 1,000 mg 9-06 tablet by ity of tablet 00:00: mouth in [place] the Medical morning Branch and 1 tablet in the evening. ubrogepant 2022-0 Yes [id number] 100mg Take 100 [facility] (UBRELVY) 9-06 mg by ity of 100 mg Tab 00:00: mouth as [place] needed Medical (migraine) Branch . Take at onset of migraine, repeat x1 in 2h if headache remains nortriptyli 2021-0 Yes [id number] 20mg Take 2 [facility] ne 10 mg 9-06 capsules ity of capsule 00:00: by mouth [place] [address] at Medical bedtime. Branch levETIRAcet 2-0 Yes [id number] 1000mg Take 1 [facility] am 1,000 mg 9-06 tablet by ity of tablet 00:00: mouth in [place] [address] the Medical morning Branch and 1 tablet in the evening. ubrogepant 2-0 Yes [id number] 100mg Take 100 [facility] (UBRELVY) 9-06 mg by ity of 100 mg Tab 00:00: mouth as [place] needed Medical (migraine) Branch . Take at onset of migraine, repeat x1 in 2h if headache remains nortriptyli 2021-0 Yes [id number] 20mg Take 2 [facility] ne 10 mg 9-06 capsules ity of capsule 00:00: by mouth [place] [address] at Medical bedtime. Branch levETIRAcet 2-0 Yes [id number] 1000mg Take 1 [facility] am 1,000 mg 9-06 tablet by ity of tablet 00:00: mouth in [place] [address] the Medical morning Branch and 1 tablet in the evening. ubrogepant 2022-0 Yes [id number] 100mg Take 100 [facility] (UBRELVY) 9-06 mg by ity of 100 mg Tab 00:00: mouth as [place] needed Medical (migraine) Branch . Take at onset of migraine, repeat x1 in 2h if headache remains nortriptyli 2-0 Yes [id number] 20mg Take 2 [facility] ne 10 mg 9-06 capsules ity of capsule 00:00: by mouth [place] [address] at Medical bedtime. Branch levETIRAcet 2-0 Yes [id number] 1000mg Take 1 [facility] am 1,000 mg 9-06 tablet by ity of tablet 00:00: mouth in [place] 00 the Medical morning Branch and 1 tablet in the evening. ubrogepant 2022-0 Yes [id number] 100mg Take 100 [facility] (UBRELVY) 9-06 mg by ity of 100 mg Tab 00:00: mouth as [place] needed Medical (migraine) Branch . Take at onset of migraine, repeat x1 in 2h if headache remains nortriptyli 2021-0 Yes [id number] 20mg Take 2 [facility] ne 10 mg 9-06 capsules ity of capsule 00:00: by mouth [place] 00 at Medical bedtime. Branch levETIRAcet 2021-0 Yes [id number] 1000mg Take 1 [facility] am 1,000 mg 9-06 tablet by ity of tablet 00:00: mouth in [place] [address] the Medical morning Branch and 1 tablet in the evening. ubrogepant 2-0 Yes [id number] 100mg Take 100 [facility] (UBRELVY) 9-06 mg by ity of 100 mg Tab 00:00: mouth as [place] needed Medical (migraine) Branch . Take at onset of migraine, repeat x1 in 2h if headache remains nortriptyli 2021-0 Yes [id number] 20mg Take 2 [facility] ne 10 mg 9-06 capsules ity of capsule 00:00: by mouth [place] [address] at Medical bedtime. Branch levETIRAcet 2-0 Yes [id number] 1000mg Take 1 [facility] am 1,000 mg 9-06 tablet by ity of tablet 00:00: mouth in [place] [address] the Medical morning Branch and 1 tablet in the evening. ubrogepant 2-0 Yes [id number] 100mg Take 100 [facility] (UBRELVY) 9-06 mg by ity of 100 mg Tab 00:00: mouth as [place] needed Medical (migraine) Branch . Take at onset of migraine, repeat x1 in 2h if headache remains nortriptyli 2021-0 Yes [id number] 20mg Take 2 [facility] ne 10 mg 9-06 capsules ity of capsule 00:00: by mouth [place] [address] at Medical bedtime. Branch levETIRAcet 2-0 Yes [id number] 1000mg Take 1 [facility] am 1,000 mg 9-06 tablet by ity of tablet 00:00: mouth in [place] [address] the Medical morning Branch and 1 tablet in the evening. ubrogepant 2022-0 Yes [id number] 100mg Take 100 [facility] (UBRELVY) 9-06 mg by ity of 100 mg Tab 00:00: mouth as [place] needed Medical (migraine) Branch . Take at onset of migraine, repeat x1 in 2h if headache remains nortriptyli 2-0 Yes [id number] 20mg Take 2 [facility] ne 10 mg 9-06 capsules ity of capsule 00:00: by mouth [place] [address] at Medical bedtime. Branch levETIRAcet 2-0 Yes [id number] 1000mg Take 1 [facility] am 1,000 mg 9-06 tablet by ity of tablet 00:00: mouth in [place] [address] the Medical morning Branch and 1 tablet in the evening. ubrogepant 2022-0 Yes [id number] 100mg Take 100 [facility] (UBRELVY) 9-06 mg by ity of 100 mg Tab 00:00: mouth as [place] needed Medical (migraine) Branch . Take at onset of migraine, repeat x1 in 2h if headache remains nortriptyli 2-0 Yes [id number] 20mg Take 2 [facility] ne 10 mg 9-06 capsules ity of capsule 00:00: by mouth [place] [address] at Medical bedtime. Branch levETIRAcet 2-0 Yes [id number] 1000mg Take 1 [facility] am 1,000 mg 9-06 tablet by ity of tablet 00:00: mouth in [place] [address] the Medical morning Branch and 1 tablet in the evening. ubrogepant 2022-0 Yes [id number] 100mg Take 100 [facility] (UBRELVY) 9-06 mg by ity of 100 mg Tab 00:00: mouth as [place] needed Medical (migraine) Branch . Take at onset of migraine, repeat x1 in 2h if headache remains nortriptyli 2-0 Yes [id number] 20mg Take 2 [facility] ne 10 mg 9-06 capsules ity of capsule 00:00: by mouth [place] [address] at Medical bedtime. Branch levETIRAcet 2022-0 Yes [id number] 1000mg Take 1 [facility] am 1,000 mg 9-06 tablet by ity of tablet 00:00: mouth in [place] [address] the Medical morning Branch and 1 tablet in the evening. ubrogepant 2022-0 Yes [id number] 100mg Take 100 [facility] (UBRELVY) 9-06 mg by ity of 100 mg Tab 00:00: mouth as [place] needed Medical (migraine) Branch . Take at onset of migraine, repeat x1 in 2h if headache remains nortriptyli 2021-0 Yes [id number] 20mg Take 2 [facility] ne 10 mg 9-06 capsules ity of capsule 00:00: by mouth [place] [address] at Medical bedtime. Branch levETIRAcet 2-0 Yes [id number] 1000mg Take 1 [facility] am 1,000 mg 9-06 tablet by ity of tablet 00:00: mouth in [place] [address] the Medical morning Branch and 1 tablet in the evening. ubrogepant 2-0 Yes [id number] 100mg Take 100 [facility] (UBRELVY) 9-06 mg by ity of 100 mg Tab 00:00: mouth as [place] needed Medical (migraine) Branch . Take at onset of migraine, repeat x1 in 2h if headache remains nortriptyli 2021-0 Yes [id number] 20mg Take 2 [facility] ne 10 mg 9-06 capsules ity of capsule 00:00: by mouth [place] [address] at Medical bedtime. Branch levETIRAcet 2021-0 Yes [id number] 1000mg Take 1 [facility] am 1,000 mg 9-06 tablet by ity of tablet 00:00: mouth in [place] [address] the Medical morning Branch and 1 tablet in the evening. ubrogepant 2-0 Yes [id number] 100mg Take 100 [facility] (UBRELVY) 9-06 mg by ity of 100 mg Tab 00:00: mouth as [place] needed Medical (migraine) Branch . Take at onset of migraine, repeat x1 in 2h if headache remains nortriptyli 2021-0 Yes [id number] 20mg Take 2 [facility] ne 10 mg 9-06 capsules ity of capsule 00:00: by mouth [place] [address] at Medical bedtime. Branch levETIRAcet 2-0 Yes [id number] 1000mg Take 1 [facility] am 1,000 mg 9-06 tablet by ity of tablet 00:00: mouth in [place] [address] the Medical morning Branch and 1 tablet in the evening. ubrogepant 2-0 Yes [id number] 100mg Take 100 [facility] (UBRELVY) 9-06 mg by ity of 100 mg Tab 00:00: mouth as [place] 00 needed Medical (migraine) Branch . Take at onset of migraine, repeat x1 in 2h if headache remains nortriptyli 2-0 Yes [id number] 20mg Take 2 [facility] ne 10 mg 9-06 capsules ity of capsule 00:00: by mouth [place] at Medical bedtime. Branch levETIRAcet 2-0 Yes [id number] 1000mg Take 1 [facility] am 1,000 mg 9-06 tablet by ity of tablet 00:00: mouth in [place] the Medical morning Branch and 1 tablet in the evening. ubrogepant 2022-0 Yes [id number] 100mg Take 100 [facility] (UBRELVY) 9-06 mg by ity of 100 mg Tab 00:00: mouth as [place] 00 needed Medical (migraine) Branch . Take at onset of migraine, repeat x1 in 2h if headache remains nortriptyli 2021-0 Yes [id number] 20mg Take 2 [facility] ne 10 mg 9-06 capsules ity of capsule 00:00: by mouth [place] [address] at Medical bedtime. Branch levETIRAcet 2-0 Yes [id number] 1000mg Take 1 [facility] am 1,000 mg 9-06 tablet by ity of tablet 00:00: mouth in [place] [address] the Medical morning Branch and 1 tablet in the evening. ubrogepant 2022-0 Yes [id number] 100mg Take 100 [facility] (UBRELVY) 9-06 mg by ity of 100 mg Tab 00:00: mouth as [place] 00 needed Medical (migraine) Branch . Take at onset of migraine, repeat x1 in 2h if headache remains nortriptyli 2-0 Yes [id number] 20mg Take 2 [facility] ne 10 mg 9-06 capsules ity of capsule 00:00: by mouth [place] [address] at Medical bedtime. Branch levETIRAcet 2-0 Yes [id number] 1000mg Take 1 [facility] am 1,000 mg 9-06 tablet by ity of tablet 00:00: mouth in [place] [address] the Medical morning Branch and 1 tablet in the evening. ubrogepant 2022-0 Yes [id number] 100mg Take 100 [facility] (UBRELVY) 9-06 mg by ity of 100 mg Tab 00:00: mouth as [place] 00 needed Medical (migraine) Branch . Take at onset of migraine, repeat x1 in 2h if headache remains nortriptyli 2-0 Yes [id number] 20mg Take 2 [facility] ne 10 mg 9-06 capsules ity of capsule 00:00: by mouth [place] 00 at Medical bedtime. Branch levETIRAcet 2-0 Yes [id number] 1000mg Take 1 [facility] am 1,000 mg 9-06 tablet by ity of tablet 00:00: mouth in [place] 00 the Medical morning Branch and 1 tablet in the evening. ubrogepant 2022-0 Yes [id number] 100mg Take 100 [facility] (UBRELVY) 9-06 mg by ity of 100 mg Tab 00:00: mouth as [place] 00 needed Medical (migraine) Branch . Take at onset of migraine, repeat x1 in 2h if headache remains nortriptyli 2-0 Yes [id number] 20mg Take 2 [facility] ne 10 mg 9-06 capsules ity of capsule 00:00: by mouth [place] [address] at Medical bedtime. Branch levETIRAcet 2-0 Yes [id number] 1000mg Take 1 [facility] am 1,000 mg 9-06 tablet by ity of tablet 00:00: mouth in [place] [address] the Medical morning Branch and 1 tablet in the evening. ubrogepant 2022-0 Yes [id number] 100mg Take 100 [facility] (UBRELVY) 9-06 mg by ity of 100 mg Tab 00:00: mouth as [place] 00 needed Medical (migraine) Branch . Take at onset of migraine, repeat x1 in 2h if headache remains nortriptyli 2-0 Yes [id number] 20mg Take 2 [facility] ne 10 mg 9-06 capsules ity of capsule 00:00: by mouth [place] [address] at Medical bedtime. Branch levETIRAcet 2-0 Yes [id number] 1000mg Take 1 [facility] am 1,000 mg 9-06 tablet by ity of tablet 00:00: mouth in [place] [address] the Medical morning Branch and 1 tablet in the evening. ubrogepant 2022-0 Yes [id number] 100mg Take 100 [facility] (UBRELVY) 9-06 mg by ity of 100 mg Tab 00:00: mouth as [place] 00 needed Medical (migraine) Branch . Take at onset of migraine, repeat x1 in 2h if headache remains nortriptyli 2-0 Yes [id number] 20mg Take 2 [facility] ne 10 mg 9-06 capsules ity of capsule 00:00: by mouth [place] 00 at Medical bedtime. Branch levETIRAcet 2-0 Yes [id number] 1000mg Take 1 [facility] am 1,000 mg 9-06 tablet by ity of tablet 00:00: mouth in [place] the Medical morning Branch and 1 tablet in the evening. ubrogepant 2022-0 Yes [id number] 100mg Take 100 [facility] (UBRELVY) 9-06 mg by ity of 100 mg Tab 00:00: mouth as [place] 00 needed Medical (migraine) Branch . Take at onset of migraine, repeat x1 in 2h if headache remains nortriptyli 2021-0 Yes [id number] 20mg Take 2 [facility] ne 10 mg 9-06 capsules ity of capsule 00:00: by mouth [place] [address] at Medical bedtime. Branch levETIRAcet 2021-0 Yes [id number] 1000mg Take 1 [facility] am 1,000 mg 9-06 tablet by ity of tablet 00:00: mouth in [place] [address] the Medical morning Branch and 1 tablet in the evening. ubrogepant 2-0 Yes [id number] 100mg Take 100 [facility] (UBRELVY) 9-06 mg by ity of 100 mg Tab 00:00: mouth as [place] 00 needed Medical (migraine) Branch . Take at onset of migraine, repeat x1 in 2h if headache remains nortriptyli 2021-0 Yes [id number] 20mg Take 2 [facility] ne 10 mg 9-06 capsules ity of capsule 00:00: by mouth [place] [address] at Medical bedtime. Branch levETIRAcet 2-0 Yes [id number] 1000mg Take 1 [facility] am 1,000 mg 9-06 tablet by ity of tablet 00:00: mouth in [place] [address] the Medical morning Branch and 1 tablet in the evening. ubrogepant 2022-0 Yes [id number] 100mg Take 100 [facility] (UBRELVY) 9-06 mg by ity of 100 mg Tab 00:00: mouth as [place] 00 needed Medical (migraine) Branch . Take at onset of migraine, repeat x1 in 2h if headache remains nortriptyli 2-0 Yes [id number] 20mg Take 2 [facility] ne 10 mg 9-06 capsules ity of capsule 00:00: by mouth [place] [address] at Medical bedtime. Branch levETIRAcet 2-0 Yes [id number] 1000mg Take 1 [facility] am 1,000 mg 9-06 tablet by ity of tablet 00:00: mouth in [place] [address] the Medical morning Branch and 1 tablet in the evening. ubrogepant 2022-0 Yes [id number] 100mg Take 100 [facility] (UBRELVY) 9-06 mg by ity of 100 mg Tab 00:00: mouth as [place] 00 needed Medical (migraine) Branch . Take at onset of migraine, repeat x1 in 2h if headache remains nortriptyli 2021-0 Yes [id number] 20mg Take 2 [facility] ne 10 mg 9-06 capsules ity of capsule 00:00: by mouth [place] 00 at Medical bedtime. Branch levETIRAcet 2021-0 Yes [id number] 1000mg Take 1 [facility] am 1,000 mg 9-06 tablet by ity of tablet 00:00: mouth in [place] [address] the Medical morning Branch and 1 tablet in the evening. ubrogepant 2-0 Yes [id number] 100mg Take 100 [facility] (UBRELVY) 9-06 mg by ity of 100 mg Tab 00:00: mouth as [place] 00 needed Medical (migraine) Branch . Take at onset of migraine, repeat x1 in 2h if headache remains nortriptyli 2021-0 Yes [id number] 20mg Take 2 [facility] ne 10 mg 9-06 capsules ity of capsule 00:00: by mouth [place] [address] at Medical bedtime. Branch levETIRAcet 2-0 Yes [id number] 1000mg Take 1 [facility] am 1,000 mg 9-06 tablet by ity of tablet 00:00: mouth in [place] [address] the Medical morning Branch and 1 tablet in the evening. ubrogepant 2-0 Yes [id number] 100mg Take 100 [facility] (UBRELVY) 9-06 mg by ity of 100 mg Tab 00:00: mouth as [place] 00 needed Medical (migraine) Branch . Take at onset of migraine, repeat x1 in 2h if headache remains nortriptyli 2021-0 Yes [id number] 20mg Take 2 [facility] ne 10 mg 9-06 capsules ity of capsule 00:00: by mouth [place] [address] at Medical bedtime. Branch levETIRAcet 2-0 Yes [id number] 1000mg Take 1 [facility] am 1,000 mg 9-06 tablet by ity of tablet 00:00: mouth in [place] [address] the Medical morning Branch and 1 tablet in the evening. ubrogepant 2022-0 Yes [id number] 100mg Take 100 [facility] (UBRELVY) 9-06 mg by ity of 100 mg Tab 00:00: mouth as [place] 00 needed Medical (migraine) Branch . Take at onset of migraine, repeat x1 in 2h if headache remains nortriptyli 2-0 Yes [id number] 20mg Take 2 [facility] ne 10 mg 9-06 capsules ity of capsule 00:00: by mouth [place] 00 at Medical bedtime. Branch levETIRAcet 2-0 Yes [id number] 1000mg Take 1 [facility] am 1,000 mg 9-06 tablet by ity of tablet 00:00: mouth in [place] [address] the Medical morning Branch and 1 tablet in the evening. ubrogepant 2022-0 Yes [id number] 100mg Take 100 [facility] (UBRELVY) 9-06 mg by ity of 100 mg Tab 00:00: mouth as [place] 00 needed Medical (migraine) Branch . Take at onset of migraine, repeat x1 in 2h if headache remains nortriptyli 2-0 Yes [id number] 20mg Take 2 [facility] ne 10 mg 9-06 capsules ity of capsule 00:00: by mouth [place] [address] at Medical bedtime. Branch levETIRAcet 2-0 Yes [id number] 1000mg Take 1 [facility] am 1,000 mg 9-06 tablet by ity of tablet 00:00: mouth in [place] [address] the Medical morning Branch and 1 tablet in the evening. ubrogepant 2022-0 Yes [id number] 100mg Take 100 [facility] (UBRELVY) 9-06 mg by ity of 100 mg Tab 00:00: mouth as [place] needed Medical (migraine) Branch . Take at onset of migraine, repeat x1 in 2h if headache remains nortriptyli 2-0 Yes [id number] 20mg Take 2 [facility] ne 10 mg 9-06 capsules ity of capsule 00:00: by mouth [place] [address] at Medical bedtime. Branch levETIRAcet 2022-0 Yes [id number] 1000mg Take 1 [facility] am 1,000 mg 9-06 tablet by ity of tablet 00:00: mouth in [place] [address] the Medical morning Branch and 1 tablet in the evening. ubrogepant 2022-0 Yes [id number] 100mg Take 100 [facility] (UBRELVY) 9-06 mg by ity of 100 mg Tab 00:00: mouth as [place] needed Medical (migraine) Branch . Take at onset of migraine, repeat x1 in 2h if headache remains nortriptyli 2021-0 Yes [id number] 20mg Take 2 [facility] ne 10 mg 9-06 capsules ity of capsule 00:00: by mouth [place] 00 at Medical bedtime. Branch levETIRAcet 2-0 Yes [id number] 1000mg Take 1 [facility] am 1,000 mg 9-06 tablet by ity of tablet 00:00: mouth in [place] the Medical morning Branch and 1 tablet in the evening. ubrogepant 2021-0 Yes [id number] 100mg Take 100 [facility] (UBRELVY) 9-06 mg by ity of 100 mg Tab 00:00: mouth as [place] needed Medical (migraine) Branch . Take at onset of migraine, repeat x1 in 2h if headache remains nortriptyli 2021-0 Yes [id number] 20mg Take 2 [facility] ne 10 mg 9-06 capsules ity of capsule 00:00: by mouth [place] [address] at Medical bedtime. Branch levETIRAcet 2021-0 Yes [id number] 1000mg Take 1 [facility] am 1,000 mg 9-06 tablet by ity of tablet 00:00: mouth in [place] the Medical morning Branch and 1 tablet in the evening. ubrogepant 2-0 Yes [id number] 100mg Take 100 [facility] (UBRELVY) 9-06 mg by ity of 100 mg Tab 00:00: mouth as [place] 00 needed Medical (migraine) Branch . Take at onset of migraine, repeat x1 in 2h if headache remains nortriptyli 2021-0 Yes [id number] 20mg Take 2 [facility] ne 10 mg 9-06 capsules ity of capsule 00:00: by mouth [place] [address] at Medical bedtime. Branch levETIRAcet 2021-0 Yes [id number] 1000mg Take 1 [facility] am 1,000 mg 9-06 tablet by ity of tablet 00:00: mouth in [place] [address] the Medical morning Branch and 1 tablet in the evening. ubrogepant 2-0 Yes [id number] 100mg Take 100 [facility] (UBRELVY) 9-06 mg by ity of 100 mg Tab 00:00: mouth as [place] 00 needed Medical (migraine) Branch . Take at onset of migraine, repeat x1 in 2h if headache remains nortriptyli 2-0 Yes [id number] 20mg Take 2 [facility] ne 10 mg 9-06 capsules ity of capsule 00:00: by mouth [place] [address] at Medical bedtime. Branch levETIRAcet 2-0 Yes [id number] 1000mg Take 1 [facility] am 1,000 mg 9-06 tablet by ity of tablet 00:00: mouth in [place] the Medical morning Branch and 1 tablet in the evening. ubrogepant 2022-0 Yes [id number] 100mg Take 100 [facility] (UBRELVY) 9-06 mg by ity of 100 mg Tab 00:00: mouth as [place] 00 needed Medical (migraine) Branch . Take at onset of migraine, repeat x1 in 2h if headache remains nortriptyli 2021-0 Yes [id number] 20mg Take 2 [facility] ne 10 mg 9-06 capsules ity of capsule 00:00: by mouth [place] [address] at Medical bedtime. Branch levETIRAcet 2-0 Yes [id number] 1000mg Take 1 [facility] am 1,000 mg 9-06 tablet by ity of tablet 00:00: mouth in [place] the Medical morning Branch and 1 tablet in the evening. ubrogepant 2-0 Yes [id number] 100mg Take 100 [facility] (UBRELVY) 9-06 mg by ity of 100 mg Tab 00:00: mouth as [place] 00 needed Medical (migraine) Branch . Take at onset of migraine, repeat x1 in 2h if headache remains nortriptyli 2-0 Yes [id number] 20mg Take 2 [facility] ne 10 mg 9-06 capsules ity of capsule 00:00: by mouth [place] [address] at Medical bedtime. Branch levETIRAcet 2-0 Yes [id number] 1000mg Take 1 [facility] am 1,000 mg 9-06 tablet by ity of tablet 00:00: mouth in [place] [address] the Medical morning Branch and 1 tablet in the evening. ubrogepant 2022-0 Yes [id number] 100mg Take 100 [facility] (UBRELVY) 9-06 mg by ity of 100 mg Tab 00:00: mouth as [place] 00 needed Medical (migraine) Branch . Take at onset of migraine, repeat x1 in 2h if headache remains levETIRAcet 2022-0 Yes [id number] 1000mg Take 1 [facility] am 1,000 mg 9-06 tablet by ity of tablet 00:00: mouth in [address] morning [place] and 1 tablet in the evening. ubrogepant 2022-0 Yes [id number] 100mg Take 100 [facility] (UBRELVY) 9-06 mg by ity of 100 mg Tab 00:00: mouth as [place] 00 needed Medical (migraine) Branch . Take at onset of migraine, repeat x1 in 2h if headache remains levETIRAcet 2022-0 Yes [id number] 1000mg Take 1 [facility] am 1,000 mg 9-06 tablet by ity of tablet 00:00: mouth in [address] morning [place] and 1 tablet in the evening. ubrogepant 2022-0 Yes [id number] 100mg Take 100 [facility] (UBRELVY) 9-06 mg by ity of 100 mg Tab 00:00: mouth as [place] 00 needed Medical (migraine) Branch . Take at onset of migraine, repeat x1 in 2h if headache remains levETIRAcet 2022-0 Yes [id number] 1000mg Take 1 [facility] am 1,000 mg 9-06 tablet by ity of tablet 00:00: mouth in [address] morning [place] and 1 tablet in the evening. ubrogepant 2022-0 Yes [id number] 100mg Take 100 [facility] (UBRELVY) 9-06 mg by ity of 100 mg Tab 00:00: mouth as [place] 00 needed Medical (migraine) Branch . Take at onset of migraine, repeat x1 in 2h if headache remains levETIRAcet 2022-0 Yes [id number] 1000mg Take 1 [facility] am 1,000 mg 9-06 tablet by ity of tablet 00:00: mouth in [address] morning [place] and 1 tablet in the evening. ubrogepant 2022-0 Yes [id number] 100mg Take 100 [facility] (UBRELVY) 9-06 mg by ity of 100 mg Tab 00:00: mouth as [place] 00 needed Medical (migraine) Branch . Take at onset of migraine, repeat x1 in 2h if headache remains ubrogepant 2022-0 Yes [id number] 100mg Take 100 [facility] (UBRELVY) 9-06 mg by ity of 100 mg Tab 00:00: mouth as [place] 00 needed Medical (migraine) Branch . Take at onset of migraine, repeat x1 in 2h if headache remains ubrogepant 2022-0 Yes [id number] 100mg Take 100 [facility] (UBRELVY) 9-06 mg by ity of 100 mg Tab 00:00: mouth as [place] 00 needed Medical (migraine) Branch . Take at onset of migraine, repeat x1 in 2h if headache remains ubrogepant 2022-0 Yes [id number] 100mg Take 100 [facility] (UBRELVY) 9-06 mg by ity of 100 mg Tab 00:00: mouth as [place] 00 needed Medical (migraine) Branch . Take at onset of migraine, repeat x1 in 2h if headache remains ubrogepant 2022-0 Yes [id number] 100mg Take 100 [facility] (UBRELVY) 9-06 mg by ity of 100 mg Tab 00:00: mouth as [place] 00 needed Medical (migraine) Branch . Take at onset of migraine, repeat x1 in 2h if headache remains ubrogepant 2022-0 Yes [id number] 100mg Take 100 [facility] (UBRELVY) 9-06 mg by ity of 100 mg Tab 00:00: mouth as [place] 00 needed Medical (migraine) Branch . Take at onset of migraine, repeat x1 in 2h if headache remains ubrogepant 2022-0 Yes [id number] 100mg Take 100 [facility] (UBRELVY) 9-06 mg by ity of 100 mg Tab 00:00: mouth as [place] 00 needed Medical (migraine) Branch . Take at onset of migraine, repeat x1 in 2h if headache remains ubrogepant 2022-0 Yes [id number] 100mg Take 100 [facility] (UBRELVY) 9-06 mg by ity of 100 mg Tab 00:00: mouth as [place] 00 needed Medical (migraine) Branch . Take at onset of migraine, repeat x1 in 2h if headache remains ubrogepant 2022-0 Yes [id number] 100mg Take 100 [facility] (UBRELVY) 9-06 mg by ity of 100 mg Tab 00:00: mouth as [place] 00 needed Medical (migraine) Branch . Take at onset of migraine, repeat x1 in 2h if headache remains ubrogepant 2022-0 Yes [id number] 100mg Take 100 [facility] (UBRELVY) 9-06 mg by ity of 100 mg Tab 00:00: mouth as [place] 00 needed Medical (migraine) Branch . Take at onset of migraine, repeat x1 in 2h if headache remains ubrogepant 2022-0 Yes [id number] 100mg Take 100 [facility] (UBRELVY) 9-06 mg by ity of 100 mg Tab 00:00: mouth as [place] 00 needed Medical (migraine) Branch . Take at onset of migraine, repeat x1 in 2h if headache remains ubrogepant 2022-0 Yes [id number] 100mg Take 100 [facility] (UBRELVY) 9-06 mg by ity of 100 mg Tab 00:00: mouth as [place] 00 needed Medical (migraine) Branch . Take at onset of migraine, repeat x1 in 2h if headache remains ubrogepant 2022-0 Yes [id number] 100mg Take 100 [facility] (UBRELVY) 9-06 mg by ity of 100 mg Tab 00:00: mouth as [place] 00 needed Medical (migraine) Branch . Take at onset of migraine, repeat x1 in 2h if headache remains ubrogepant 2022-0 Yes [id number] 100mg Take 100 [facility] (UBRELVY) 9-06 mg by ity of 100 mg Tab 00:00: mouth as [place] 00 needed Medical (migraine) Branch . Take at onset of migraine, repeat x1 in 2h if headache remains ubrogepant 2022-0 Yes [id number] 100mg Take 100 [facility] (UBRELVY) 9-06 mg by ity of 100 mg Tab 00:00: mouth as [place] 00 needed Medical (migraine) Branch . Take at onset of migraine, repeat x1 in 2h if headache remains ubrogepant 2022-0 Yes [id number] 100mg Take 100 [facility] (UBRELVY) 9-06 mg by ity of 100 mg Tab 00:00: mouth as [place] 00 needed Medical (migraine) Branch . Take at onset of migraine, repeat x1 in 2h if headache remains ubrogepant 2022-0 Yes [id number] 100mg Take 100 [facility] (UBRELVY) 9-06 mg by ity of 100 mg Tab 00:00: mouth as [place] 00 needed Medical (migraine) Branch . Take at onset of migraine, repeat x1 in 2h if headache remains ubrogepant 2022-0 Yes [id number] 100mg Take 100 [facility] (UBRELVY) 9-06 mg by ity of 100 mg Tab 00:00: mouth as [place] 00 needed Medical (migraine) Branch . Take at onset of migraine, repeat x1 in 2h if headache remains ubrogepant 2022-0 Yes [id number] 100mg Take 100 [facility] (UBRELVY) 9-06 mg by ity of 100 mg Tab 00:00: mouth as [place] 00 needed Medical (migraine) Branch . Take at onset of migraine, repeat x1 in 2h if headache remains ubrogepant 2022-0 Yes [id number] 100mg Take 100 [facility] (UBRELVY) 9-06 mg by ity of 100 mg Tab 00:00: mouth as [place] 00 needed Medical (migraine) Branch . Take at onset of migraine, repeat x1 in 2h if headache remains ubrogepant 2022-0 Yes [id number] 100mg Take 100 [facility] (UBRELVY) 9-06 mg by ity of 100 mg Tab 00:00: mouth as [place] 00 needed Medical (migraine) Branch . Take at onset of migraine, repeat x1 in 2h if headache remains ubrogepant 2022-0 Yes [id number] 100mg Take 100 [facility] (UBRELVY) 9-06 mg by ity of 100 mg Tab 00:00: mouth as [place] 00 needed Medical (migraine) Branch . Take at onset of migraine, repeat x1 in 2h if headache remains ubrogepant 2022-0 Yes [id number] 100mg Take 100 [facility] (UBRELVY) 9-06 mg by ity of 100 mg Tab 00:00: mouth as [place] 00 needed Medical (migraine) Branch . Take at onset of migraine, repeat x1 in 2h if headache remains ubrogepant 2022-0 Yes [id number] 100mg Take 100 [facility] (UBRELVY) 9-06 mg by ity of 100 mg Tab 00:00: mouth as [place] 00 needed Medical (migraine) Branch . Take at onset of migraine, repeat x1 in 2h if headache remains ubrogepant 2022-0 Yes [id number] 100mg Take 100 [facility] (UBRELVY) 9-06 mg by ity of 100 mg Tab 00:00: mouth as [place] 00 needed Medical (migraine) Branch . Take at onset of migraine, repeat x1 in 2h if headache remains ubrogepant 2022-0 Yes [id number] 100mg Take 100 [facility] (UBRELVY) 9-06 mg by ity of 100 mg Tab 00:00: mouth as [place] 00 needed Medical (migraine) Branch . Take at onset of migraine, repeat x1 in 2h if headache remains ubrogepant 2022-0 Yes [id number] 100mg Take 100 [facility] (UBRELVY) 9-06 mg by ity of 100 mg Tab 00:00: mouth as [place] 00 needed Medical (migraine) Branch . Take at onset of migraine, repeat x1 in 2h if headache remains ubrogepant 2022-0 Yes [id number] 100mg Take 100 [facility] (UBRELVY) 9-06 mg by ity of 100 mg Tab 00:00: mouth as [place] 00 needed Medical (migraine) Branch . Take at onset of migraine, repeat x1 in 2h if headache remains ubrogepant 2022-0 Yes [id number] 100mg Take 100 [facility] (UBRELVY) 9-06 mg by ity of 100 mg Tab 00:00: mouth as [place] 00 needed Medical (migraine) Branch . Take at onset of migraine, repeat x1 in 2h if headache remains ubrogepant 2022-0 Yes [id number] 100mg Take 100 [facility] (UBRELVY) 9-06 mg by ity of 100 mg Tab 00:00: mouth as [place] 00 needed Medical (migraine) Branch . Take at onset of migraine, repeat x1 in 2h if headache remains ubrogepant 2022-0 Yes [id number] 100mg Take 100 [facility] (UBRELVY) 9-06 mg by ity of 100 mg Tab 00:00: mouth as [place] 00 needed Medical (migraine) Branch . Take at onset of migraine, repeat x1 in 2h if headache remains ubrogepant 2022-0 Yes [id number] 100mg Take 100 [facility] (UBRELVY) 9-06 mg by ity of 100 mg Tab 00:00: mouth as [place] 00 needed Medical (migraine) Branch . Take at onset of migraine, repeat x1 in 2h if headache remains ubrogepant 2022-0 Yes [id number] 100mg Take 100 [facility] (UBRELVY) 9-06 mg by ity of 100 mg Tab 00:00: mouth as [place] 00 needed Medical (migraine) Branch . Take at onset of migraine, repeat x1 in 2h if headache remains ubrogepant 2022-0 Yes [id number] 100mg Take 100 [facility] (UBRELVY) 9-06 mg by ity of 100 mg Tab 00:00: mouth as [place] 00 needed Medical (migraine) Branch . Take at onset of migraine, repeat x1 in 2h if headache remains ubrogepant 2022-0 Yes [id number] 100mg Take 100 [facility] (UBRELVY) 9-06 mg by ity of 100 mg Tab 00:00: mouth as [place] 00 needed Medical (migraine) Branch . Take at onset of migraine, repeat x1 in 2h if headache remains ubrogepant 2022-0 Yes [id number] 100mg Take 100 [facility] (UBRELVY) 9-06 mg by ity of 100 mg Tab 00:00: mouth as [place] 00 needed Medical (migraine) Branch . Take at onset of migraine, repeat x1 in 2h if headache remains ubrogepant 2022-0 Yes [id number] 100mg Take 100 [facility] (UBRELVY) 9-06 mg by ity of 100 mg Tab 00:00: mouth as [place] 00 needed Medical (migraine) Branch . Take at onset of migraine, repeat x1 in 2h if headache remains ubrogepant 2022-0 Yes [id number] 100mg Take 100 [facility] (UBRELVY) 9-06 mg by ity of 100 mg Tab 00:00: mouth as [place] 00 needed Medical (migraine) Branch . Take at onset of migraine, repeat x1 in 2h if headache remains ubrogepant 2022-0 Yes [id number] 100mg Take 100 [facility] (UBRELVY) 9-06 mg by ity of 100 mg Tab 00:00: mouth as [place] 00 needed Medical (migraine) Branch . Take at onset of migraine, repeat x1 in 2h if headache remains ubrogepant 2022-0 Yes [id number] 100mg Take 100 [facility] (UBRELVY) 9-06 mg by ity of 100 mg Tab 00:00: mouth as [place] 00 needed Medical (migraine) Branch . Take at onset of migraine, repeat x1 in 2h if headache remains ubrogepant 2022-0 Yes [id number] 100mg Take 100 [facility] (UBRELVY) 9-06 mg by ity of 100 mg Tab 00:00: mouth as [place] 00 needed Medical (migraine) Branch . Take at onset of migraine, repeat x1 in 2h if headache remains ubrogepant 2022-0 Yes [id number] 100mg Take 100 [facility] (UBRELVY) 9-06 mg by ity of 100 mg Tab 00:00: mouth as [place] 00 needed Medical (migraine) Branch . Take at onset of migraine, repeat x1 in 2h if headache remains ubrogepant 2022-0 Yes [id number] 100mg Take 100 [facility] (UBRELVY) 9-06 mg by ity of 100 mg Tab 00:00: mouth as [place] 00 needed Medical (migraine) Branch . Take at onset of migraine, repeat x1 in 2h if headache remains ubrogepant 2022-0 Yes [id number] 100mg Take 100 [facility] (UBRELVY) 9-06 mg by ity of 100 mg Tab 00:00: mouth as [place] 00 needed Medical (migraine) Branch . Take at onset of migraine, repeat x1 in 2h if headache remains ubrogepant 2-0 Yes [id number] 100mg Take 100 [facility] (UBRELVY) 9-06 mg by ity of 100 mg Tab 00:00: mouth as [place] 00 needed Medical (migraine) Branch . Take at onset of migraine, repeat x1 in 2h if headache remains ubrogepant 2-0 Yes [id number] 100mg Take 100 [facility] (UBRELVY) 9-06 mg by ity of 100 mg Tab 00:00: mouth as [place] 00 needed Medical (migraine) Branch . Take at onset of migraine, repeat x1 in 2h if headache remains ubrogepant 2-0 Yes [id number] 100mg Take 100 [facility] (UBRELVY) 9-06 mg by ity of 100 mg Tab 00:00: mouth as [place] 00 needed Medical (migraine) Branch . Take at onset of migraine, repeat x1 in 2h if headache remains ubrogepant 2022-0 Yes [id number] 100mg Take 100 [facility] (UBRELVY) 9-06 mg by ity of 100 mg Tab 00:00: mouth as [place] 00 needed Medical (migraine) Branch . Take at onset of migraine, repeat x1 in 2h if headache remains ubrogepant 2022-0 Yes [id number] 100mg Take 100 [facility] (UBRELVY) 9-06 mg by ity of 100 mg Tab 00:00: mouth as [place] 00 needed Medical (migraine) Branch . Take at onset of migraine, repeat x1 in 2h if headache remains ubrogepant 2022-0 2023- No [id number] 100mg Take 100 [facility] (UBRELVY) 9- 03-22 mg by ity of 100 mg Tab 00:00: 00:00 mouth as [place] 00 :00 needed Medical (migraine) Branch . Take at onset of migraine, repeat x1 in 2h if headache remains ubrogepant 0 3- No [id number] 100mg Take 100 [facility] (UBRELVY) 9- 03-22 mg by ity of 100 mg Tab 00:00: 00:00 mouth as [place] 00 :00 needed Medical (migraine) Branch . Take at onset of migraine, repeat x1 in 2h if headache remains levETIRAcet 2021- No [id number] 1000mg Take 1 [facility] am 1,000 mg 05-31-16 tablet by it y of tablet 00:00: 00:00 mouth in [place] 00 :00 the Medical morning [place] and 1 tablet in the evening. levETIRAcet 2021-2021- No [id number] 1000mg Take 1 [facility] am 1,000 mg 05-31-16 tablet by it y of tablet 00:00: 00:00 mouth in [place] 00 :00 the [facility] Medical morning [place] and 1 tablet in the evening. levETIRAcet 2021-2021- No [id number] 1000mg Take 1 [facility] am 1,000 mg 05-31-16 tablet by it y of tablet 00:00: 00:00 mouth in [place] 00 :00 the [facility] Medical morning [place] and 1 tablet in the evening. levETIRAcet 2021-2021- No [id number] 1000mg Take 1 [facility] am 1,000 mg 05-31-16 tablet by it y of tablet 00:00: 00:00 mouth in [place] 00 :00 the [facility] Medical morning [place] and 1 tablet in the evening. levETIRAcet 2021-2021- No [id number] 1000mg Take 1 [facility] am 1,000 mg 05-31-16 tablet by it y of tablet 00:00: 00:00 mouth in [place] 00 :00 the [facility] Medical morning [place] and 1 tablet in the evening. levETIRAcet 2021-2021- No [id number] 1000mg Take 1 [facility] am 1,000 mg 05-31-16 tablet by it y of tablet 00:00: 00:00 mouth in [place] 00 :00 the Medical morning Branch and 1 tablet in the evening. nortriptyli 2021-2021- No [id number] 20mg Take 2 [facility] ne 10 mg 05-31 capsules ity of capsule 00:00: 00:00 by mouth [place] 00 :00 at Medical bedtime. Branch nortriptyli 2021- No [id number] 20mg Take 2 [facility] ne 10 mg 05-31 capsules ity of capsule 00:00: 00:00 by mouth [place] 00 :00 at Medical bedtime. Branch nortriptyli 2021-2021- No [id number] 20mg Take 2 [facility] ne 10 mg 05-31 capsules ity of capsule 00:00: 00:00 by mouth [place] 00 :00 at Medical bedtime. Branch nortriptyli 2021- No [id number] 20mg Take 2 [facility] ne 10 mg 05-31 capsules ity of capsule 00:00: 00:00 by mouth [place] 00 :00 at Medical bedtime. Branch nortriptyli 2021- No [id number] 20mg Take 2 [facility] ne 10 mg 05-31 capsules ity of capsule 00:00: 00:00 by mouth [place] 00 :00 at Medical bedtime. Branch nortriptyli 2021-2021- No [id number] 20mg Take 2 [facility] ne 10 mg 05-31 capsules ity of capsule 00:00: 00:00 by mouth [place] 00 :00 at Medical bedtime. Branch rosuvastati Yes 10mg Take 10 mg [facility] n (CRESTOR) 8-30 by mouth ity of 10 mg 09:52: at [place] tablet 35 bedtime. Medical Branch rosuvastati Yes 10mg Take 10 mg [facility] n (CRESTOR) 8-30 by mouth ity of 10 mg 09:52: at [place] tablet 35 bedtime. Medical Branch rosuvastati 0 Yes 10mg Take 10 mg [facility] n (CRESTOR) 8-30 by mouth ity of 10 mg 09:52: at [place] tablet 35 bedtime. Medical Branch rosuvastati Yes 10mg Take 10 mg [facility] n (CRESTOR) 8-30 by mouth ity of 10 mg 09:52: at [place] tablet 35 bedtime. Medical Branch rosuvastati 0 Yes 10mg Take 10 mg [facility] n (CRESTOR) 8-30 by mouth ity of 10 mg 09:52: at [place] tablet 35 bedtime. Medical Branch rosuvastati 0 Yes 10mg Take 10 mg [facility] n (CRESTOR) 8-30 by mouth ity of 10 mg 09:52: at [place] tablet 35 bedtime. Medical Branch rosuvastati 0 Yes 10mg Take 10 mg [facility] n (CRESTOR) 8-30 by mouth ity of 10 mg 09:52: at [place] tablet 35 bedtime. Medical Branch ALPRAZolam 0 Yes [id number] .25mg Take 0.25 [facility] 0.25 mg 8-12 mg by ity of tablet 13:33: mouth at [place] 09 bedtime as Medical needed. Branch pregabalin 0 Yes 50mg Take 50 mg U nivers 50 mg 8-12 by mouth ity of capsule 13:33: at [place] [address] bedtime. Medical Branch ALPRAZolam 0 Yes [id number] .25mg Take 0.25 [facility] 0.25 mg 8-12 mg by ity of tablet 13:33: mouth at [place] 09 bedtime as Medical needed. Branch pregabalin 0 Yes 50mg Take 50 mg U nivers 50 mg 8-12 by mouth ity of capsule 13:33: at [place] 09 bedtime. Medical Branch ALPRAZolam 0 Yes [id number] .25mg Take 0.25 [facility] 0.25 mg 8-12 mg by ity of tablet 13:33: mouth at [place] 09 bedtime as Medical needed. Branch pregabalin 0 Yes 50mg Take 50 mg U nivers 50 mg 8-12 by mouth ity of capsule 13:33: at [place] 09 bedtime. Medical Branch ALPRAZolam 0 Yes [id number] .25mg Take 0.25 [facility] 0.25 mg 8-12 mg by ity of tablet 13:33: mouth at [place] 09 bedtime as Medical needed. Branch pregabalin 0 Yes 50mg Take 50 mg U nivers 50 mg 8-12 by mouth ity of capsule 13:33: at [place] 09 bedtime. Medical Branch ALPRAZolam 2021-0 Yes [id number] .25mg Take 0.25 [facility] 0.25 mg 8-12 mg by ity of tablet 13:33: mouth at [place] 09 bedtime as Medical needed. Branch pregabalin 2021-0 Yes 50mg Take 50 mg U nivers 50 mg 8-12 by mouth ity of capsule 13:33: at [place] [address] bedtime. Medical Branch ALPRAZolam 2021-0 Yes [id number] .25mg Take 0.25 [facility] 0.25 mg 8-12 mg by ity of tablet 13:33: mouth at [place] 09 bedtime as Medical needed. Branch pregabalin 2021-0 Yes 50mg Take 50 mg U nivers 50 mg 8-12 by mouth ity of capsule 13:33: at [place] [address] bedtime. Medical Branch ALPRAZolam 2021-0 Yes [id number] .25mg Take 0.25 [facility] 0.25 mg 8-12 mg by ity of tablet 13:33: mouth at [place] [address] bedtime as Medical needed. Branch pregabalin 2021-0 Yes 50mg Take 50 mg U nivers 50 mg 8-12 by mouth ity of capsule 13:33: at [place] [address] bedtime. Medical Branch ALPRAZolam 2021-0 Yes [id number] .25mg Take 0.25 [facility] 0.25 mg 8-12 mg by ity of tablet 13:33: mouth at [place] [address] bedtime as Medical needed. Branch pregabalin 2021-0 Yes 50mg Take 50 mg U nivers 50 mg 8-12 by mouth ity of capsule 13:33: at [place] [address] bedtime. Medical Branch ALPRAZolam 2021-0 Yes [id number] .25mg Take 0.25 [facility] 0.25 mg 8-12 mg by ity of tablet 13:33: mouth at [place] [address] bedtime as Medical needed. Branch pregabalin 2021-0 Yes 50mg Take 50 mg U nivers 50 mg 8-12 by mouth ity of capsule 13:33: at [place] [address] bedtime. Medical Branch ALPRAZolam 2021-0 Yes [id number] .25mg Take 0.25 [facility] 0.25 mg 8-12 mg by ity of tablet 13:33: mouth at [place] [address] bedtime as Medical needed. Branch pregabalin 2021-0 Yes 50mg Take 50 mg U nivers 50 mg 8-12 by mouth ity of capsule 13:33: at [place] 09 bedtime. Medical Branch ALPRAZolam 2021-0 Yes [id number] .25mg Take 0.25 [facility] 0.25 mg 8-12 mg by ity of tablet 13:33: mouth at [place] 09 bedtime as Medical needed. Branch pregabalin 2021-0 Yes 50mg Take 50 mg U nivers 50 mg 8-12 by mouth ity of capsule 13:33: at [place] [address] bedtime. Medical Branch ALPRAZolam 2021-0 Yes [id number] .25mg Take 0.25 [facility] 0.25 mg 8-12 mg by ity of tablet 13:33: mouth at [place] [address] bedtime as Medical needed. Branch pregabalin 2021-0 Yes 50mg Take 50 mg U nivers 50 mg 8-12 by mouth ity of capsule 13:33: at [place] [address] bedtime. Medical Branch ALPRAZolam 2021-0 Yes [id number] .25mg Take 0.25 [facility] 0.25 mg 8-12 mg by ity of tablet 13:33: mouth at [place] [address] bedtime as Medical needed. Branch pregabalin 2021-0 Yes 50mg Take 50 mg U nivers 50 mg 8-12 by mouth ity of capsule 13:33: at [place] [address] bedtime. Medical Branch ALPRAZolam 2021-0 Yes [id number] .25mg Take 0.25 [facility] 0.25 mg 8-12 mg by ity of tablet 13:33: mouth at [place] [address] bedtime as Medical needed. Branch pregabalin 2021-0 Yes 50mg Take 50 mg U nivers 50 mg 8-12 by mouth ity of capsule 13:33: at [place] [address] bedtime. Medical Branch ALPRAZolam 2021-0 Yes [id number] .25mg Take 0.25 [facility] 0.25 mg 8-12 mg by ity of tablet 13:33: mouth at [place] [address] bedtime as Medical needed. Branch pregabalin 2-0 Yes 50mg Take 50 mg U nivers 50 mg 8-12 by mouth ity of capsule 13:33: at [place] [address] bedtime. Medical Branch ALPRAZolam 2-0 Yes [id number] .25mg Take 0.25 [facility] 0.25 mg 8-12 mg by ity of tablet 13:33: mouth at [place] [address] bedtime as Medical needed. Branch pregabalin 2021-0 Yes 50mg Take 50 mg U nivers 50 mg 8-12 by mouth ity of capsule 13:33: at [place] [address] bedtime. Medical Branch ALPRAZolam 2021-0 Yes [id number] .25mg Take 0.25 [facility] 0.25 mg 8-12 mg by ity of tablet 13:33: mouth at [place] [address] bedtime as Medical needed. Branch pregabalin 2021-0 Yes 50mg Take 50 mg U nivers 50 mg 8-12 by mouth ity of capsule 13:33: at [place] [address] bedtime. Medical Branch ALPRAZolam 2021-0 Yes [id number] .25mg Take 0.25 [facility] 0.25 mg 8-12 mg by ity of tablet 13:33: mouth at [place] [address] bedtime as Medical needed. Branch pregabalin 2021-0 Yes 50mg Take 50 mg U nivers 50 mg 8-12 by mouth ity of capsule 13:33: at [place] [address] bedtime. Medical Branch ALPRAZolam 2021-0 Yes [id number] .25mg Take 0.25 [facility] 0.25 mg 8-12 mg by ity of tablet 13:33: mouth at [place] [address] bedtime as Medical needed. Branch pregabalin 2021-0 Yes 50mg Take 50 mg U nivers 50 mg 8-12 by mouth ity of capsule 13:33: at [place] [address] bedtime. Medical Branch ALPRAZolam 2021-0 Yes [id number] .25mg Take 0.25 [facility] 0.25 mg 8-12 mg by ity of tablet 13:33: mouth at [place] [address] bedtime as Medical needed. Branch pregabalin 2021-0 Yes 50mg Take 50 mg U nivers 50 mg 8-12 by mouth ity of capsule 13:33: at [place] [address] bedtime. Medical Branch ALPRAZolam 2021-0 Yes [id number] .25mg Take 0.25 [facility] 0.25 mg 8-12 mg by ity of tablet 13:33: mouth at [place] [address] bedtime as Medical needed. Branch pregabalin 2021-0 Yes 50mg Take 50 mg [facility] nivers 50 mg 8-12 by mouth ity of capsule 13:33: at [place] [address] bedtime. Medical Branch ALPRAZolam 2021-0 Yes [id number] .25mg Take 0.25 [facility] 0.25 mg 8-12 mg by ity of tablet 13:33: mouth at [place] 09 bedtime as Medical needed. Branch pregabalin 2021-0 Yes 50mg Take 50 mg U nivers 50 mg 8-12 by mouth ity of capsule 13:33: at [place] [address] bedtime. Medical Branch ALPRAZolam 2021-0 Yes [id number] .25mg Take 0.25 [facility] 0.25 mg 8-12 mg by ity of tablet 13:33: mouth at [place] [address] bedtime as Medical needed. Branch pregabalin 2021-0 Yes 50mg Take 50 mg [facility] nivers 50 mg 8-12 by mouth ity of capsule 13:33: at [place] [address] bedtime. Medical Branch ALPRAZolam 2021-0 Yes [id number] .25mg Take 0.25 [facility] 0.25 mg 8-12 mg by ity of tablet 13:33: mouth at [place] [address] bedtime as Medical needed. Branch pregabalin 2021-0 Yes 50mg Take 50 mg U nivers 50 mg 8-12 by mouth ity of capsule 13:33: at [place] [address] bedtime. Medical Branch ALPRAZolam 2021-0 Yes [id number] .25mg Take 0.25 [facility] 0.25 mg 8-12 mg by ity of tablet 13:33: mouth at [place] [address] bedtime as Medical needed. Branch pregabalin 2021-0 Yes 50mg Take 50 mg [facility] nivers 50 mg 8-12 by mouth ity of capsule 13:33: at [place] [address] bedtime. Medical Branch ALPRAZolam 2021-0 Yes [id number] .25mg Take 0.25 [facility] 0.25 mg 8-12 mg by ity of tablet 13:33: mouth at [place] [address] bedtime as Medical needed. Branch pregabalin 2021-0 Yes 50mg Take 50 mg [facility] nivers 50 mg 8-12 by mouth ity of capsule 13:33: at [place] [address] bedtime. Medical Branch ALPRAZolam 2021-0 Yes [id number] .25mg Take 0.25 [facility] 0.25 mg 8-12 mg by ity of tablet 13:33: mouth at [place] 09 bedtime as Medical needed. Branch pregabalin 2021-0 Yes 50mg Take 50 mg [facility] nivers 50 mg 8-12 by mouth ity of capsule 13:33: at [place] 09 bedtime. Medical Branch ALPRAZolam 2021-0 Yes [id number] .25mg Take 0.25 [facility] 0.25 mg 8-12 mg by ity of tablet 13:33: mouth at [place] 09 bedtime as Medical needed. Branch pregabalin 2021-0 Yes 50mg Take 50 mg [facility] nivers 50 mg 8-12 by mouth ity of capsule 13:33: at [place] [address] bedtime. Medical Branch ALPRAZolam 2021-0 Yes [id number] .25mg Take 0.25 [facility] 0.25 mg 8-12 mg by ity of tablet 13:33: mouth at [place] 09 bedtime as Medical needed. Branch pregabalin 2021-0 Yes 50mg Take 50 mg [facility] nivers 50 mg 8-12 by mouth ity of capsule 13:33: at [place] [address] bedtime. Medical Branch ALPRAZolam 2021-0 Yes [id number] .25mg Take 0.25 [facility] 0.25 mg 8-12 mg by ity of tablet 13:33: mouth at [place] [address] bedtime as Medical needed. Branch pregabalin 2021-0 Yes 50mg Take 50 mg [facility] nivers 50 mg 8-12 by mouth ity of capsule 13:33: at [place] [address] bedtime. Medical Branch ALPRAZolam 2021-0 Yes [id number] .25mg Take 0.25 [facility] 0.25 mg 8-12 mg by ity of tablet 13:33: mouth at [place] [address] bedtime as Medical needed. Branch pregabalin 2021-0 Yes 50mg Take 50 mg [facility] 50 mg 8-12 by mouth ity of capsule 13:33: at [place] [address] bedtime. Medical Branch ALPRAZolam 2021-0 Yes [id number] .25mg Take 0.25 [facility] 0.25 mg 8-12 mg by ity of tablet 13:33: mouth at [place] [address] bedtime as Medical needed. Branch pregabalin 2021-0 Yes 50mg Take 50 mg [facility] 50 mg 8-12 by mouth ity of capsule 13:33: at [place] [address] bedtime. Medical Branch ALPRAZolam 2021-0 Yes [id number] .25mg Take 0.25 [facility] 0.25 mg 8-12 mg by ity of tablet 13:33: mouth at [place] [address] bedtime as Medical needed. Branch pregabalin 2021-0 Yes 50mg Take 50 mg [facility] nivers 50 mg 8-12 by mouth ity of capsule 13:33: at [place] 09 bedtime. Medical Branch ALPRAZolam 2021-0 Yes [id number] .25mg Take 0.25 [facility] 0.25 mg 8-12 mg by ity of tablet 13:33: mouth at [place] [address] bedtime as Medical needed. Branch pregabalin 2021-0 Yes 50mg Take 50 mg [facility] nivers 50 mg 8-12 by mouth ity of capsule 13:33: at [place] [address] bedtime. Medical Branch ALPRAZolam 2021-0 Yes [id number] .25mg Take 0.25 [facility] 0.25 mg 8-12 mg by ity of tablet 13:33: mouth at [place] [address] bedtime as Medical needed. Branch pregabalin 2021-0 Yes 50mg Take 50 mg [facility] 50 mg 8-12 by mouth ity of capsule 13:33: at [place] [address] bedtime. Medical Branch ALPRAZolam 2021-0 Yes [id number] .25mg Take 0.25 [facility] 0.25 mg 8-12 mg by ity of tablet 13:33: mouth at [place] [address] bedtime as Medical needed. Branch pregabalin 2021-0 Yes 50mg Take 50 mg [facility] nivers 50 mg 8-12 by mouth ity of capsule 13:33: at [place] [address] bedtime. Medical Branch ALPRAZolam 2021-0 Yes [id number] .25mg Take 0.25 [facility] 0.25 mg 8-12 mg by ity of tablet 13:33: mouth at [place] [address] bedtime as Medical needed. Branch pregabalin 2021-0 Yes 50mg Take 50 mg [facility] n[facility] 50 mg 8-12 by mouth ity of capsule 13:33: at [place] [address] bedtime. Medical Branch ALPRAZolam 2021-0 Yes [id number] .25mg Take 0.25 [facility] 0.25 mg 8-12 mg by ity of tablet 13:33: mouth at [place] [address] bedtime as Medical needed. Branch pregabalin 2021-0 Yes 50mg Take 50 mg [facility] nivers 50 mg 8-12 by mouth ity of capsule 13:33: at [place] [address] bedtime. Medical Branch ALPRAZolam 2021-0 Yes [id number] .25mg Take 0.25 [facility] 0.25 mg 8-12 mg by ity of tablet 13:33: mouth at [place] [address] bedtime as Medical needed. Branch pregabalin 2021-0 Yes 50mg Take 50 mg [facility] 50 mg 8-12 by mouth ity of capsule 13:33: at [place] [address] bedtime. Medical Branch ALPRAZolam 2021-0 Yes [id number] .25mg Take 0.25 [facility] 0.25 mg 8-12 mg by ity of tablet 13:33: mouth at [place] [address] bedtime as Medical needed. Branch pregabalin 2021-0 Yes 50mg Take 50 mg [facility] n[facility] 50 mg 8-12 by mouth ity of capsule 13:33: at [place] [address] bedtime. Medical Branch ALPRAZolam 2021-0 Yes [id number] .25mg Take 0.25 [facility] 0.25 mg 8-12 mg by ity of tablet 13:33: mouth at [place] [address] bedtime as Medical needed. Branch pregabalin 2021-0 Yes 50mg Take 50 mg [facility] 50 mg 8-12 by mouth ity of capsule 13:33: at [place] [address] bedtime. Medical Branch ALPRAZolam 2021-0 Yes [id number] .25mg Take 0.25 [facility] 0.25 mg 8-12 mg by ity of tablet 13:33: mouth at [place] [address] bedtime as Medical needed. Branch pregabalin 2021-0 Yes 50mg Take 50 mg [facility] 50 mg 8-12 by mouth ity of capsule 13:33: at [place] [address] bedtime. Medical Branch ALPRAZolam 2021-0 Yes [id number] .25mg Take 0.25 [facility] 0.25 mg 8-12 mg by ity of tablet 13:33: mouth at [place] [address] bedtime as Medical needed. Branch pregabalin 2021-0 Yes 50mg Take 50 mg [facility] 50 mg 8-12 by mouth ity of capsule 13:33: at [place] [address] bedtime. Medical Branch ALPRAZolam 2021-0 Yes [id number] .25mg Take 0.25 [facility] 0.25 mg 8-12 mg by ity of tablet 13:33: mouth at [place] [address] bedtime as Medical needed. Branch pregabalin 2021-0 Yes 50mg Take 50 mg [facility] 50 mg 8-12 by mouth ity of capsule 13:33: at [place] [address] bedtime. Medical Branch ALPRAZolam Yes [id number] .25mg Take 0.25 [facility] 0.25 mg 8-12 mg by ity of tablet 13:33: mouth at [place] 09 bedtime as Medical needed. Branch pregabalin Yes 50mg Take 50 mg [facility] nivers 50 mg 8-12 by mouth ity of capsule 13:33: at [place] [address] bedtime. Medical Branch tiotropium Yes 1{puff} Inhale 1 [facility] bromide 8-12 Puff ity of (SPIRIVA 00:00: daily. [place] RESPIMAT) 00 Medical 2.5 Branch mcg/actuati on Mist tiotropium Yes 1{puff} Inhale 1 [facility] bromide 8-12 Puff ity of (SPIRIVA 00:00: daily. [place] RESPIMAT) 00 Medical 2.5 Branch mcg/actuati on Mist tiotropium 0 Yes 1{puff} Inhale 1 [facility] bromide 8-12 Puff ity of (SPIRIVA 00:00: daily. [place] RESPIMAT) 00 Medical 2.5 Branch mcg/actuati on Mist tiotropium 0 Yes 1{puff} Inhale 1 [facility] bromide 8-12 Puff ity of (SPIRIVA 00:00: daily. [place] RESPIMAT) 00 Medical 2.5 Branch mcg/actuati on Mist tiotropium 0 Yes 1{puff} Inhale 1 [facility] bromide 8-12 Puff ity of (SPIRIVA 00:00: daily. [place] RESPIMAT) 00 Medical 2.5 Branch mcg/actuati on Mist tiotropium 0 Yes 1{puff} Inhale 1 [facility] bromide 8-12 Puff ity of (SPIRIVA 00:00: daily. [place] RESPIMAT) 00 Medical 2.5 Branch mcg/actuati on Mist tiotropium 2021-0 Yes 1{puff} Inhale 1 [facility] bromide 8-12 Puff ity of (SPIRIVA 00:00: daily. [place] RESPIMAT) 00 Medical 2.5 Branch mcg/actuati on Mist tiotropium 2021-0 Yes 1{puff} Inhale 1 [facility] bromide 8-12 Puff ity of (SPIRIVA 00:00: daily. [place] RESPIMAT) 00 Medical 2.5 Branch mcg/actuati on Mist tiotropium 2021-0 Yes 1{puff} Inhale 1 [facility] bromide 8-12 Puff ity of (SPIRIVA 00:00: daily. [place] RESPIMAT) 00 Medical 2.5 Branch mcg/actuati on Mist tiotropium 2021-0 Yes 1{puff} Inhale 1 [facility] bromide 8-12 Puff ity of (SPIRIVA 00:00: daily. [place] RESPIMAT) 00 Medical 2.5 Branch mcg/actuati on Mist tiotropium 2021-0 Yes 1{puff} Inhale 1 [facility] bromide 8-12 Puff ity of (SPIRIVA 00:00: daily. [place] RESPIMAT) 00 Medical 2.5 Branch mcg/actuati on Mist tiotropium 2021-0 Yes 1{puff} Inhale 1 [facility] bromide 8-12 Puff ity of (SPIRIVA 00:00: daily. [place] RESPIMAT) 00 Medical 2.5 Branch mcg/actuati on Mist tiotropium 2021-0 Yes 1{puff} Inhale 1 [facility] bromide 8-12 Puff ity of (SPIRIVA 00:00: daily. [place] RESPIMAT) 00 Medical 2.5 Branch mcg/actuati on Mist tiotropium 2021-0 Yes 1{puff} Inhale 1 [facility] bromide 8-12 Puff ity of (SPIRIVA 00:00: daily. [place] RESPIMAT) 00 Medical 2.5 Branch mcg/actuati on Mist tiotropium 2021-0 Yes 1{puff} Inhale 1 [facility] bromide 8-12 Puff ity of (SPIRIVA 00:00: daily. [place] RESPIMAT) 00 Medical 2.5 Branch mcg/actuati on Mist tiotropium 2021-0 Yes 1{puff} Inhale 1 [facility] bromide 8-12 Puff ity of (SPIRIVA 00:00: daily. [place] RESPIMAT) 00 Medical 2.5 Branch mcg/actuati on Mist tiotropium 2-0 Yes 1{puff} Inhale 1 [facility] bromide 8-12 Puff ity of (SPIRIVA 00:00: daily. [place] RESPIMAT) 00 Medical 2.5 Branch mcg/actuati on Mist tiotropium 2-0 Yes 1{puff} Inhale 1 [facility] bromide 8-12 Puff ity of (SPIRIVA 00:00: daily. [place] RESPIMAT) 00 Medical 2.5 Branch mcg/actuati on Mist tiotropium 2021-0 Yes 1{puff} Inhale 1 [facility] bromide 8-12 Puff ity of (SPIRIVA 00:00: daily. [place] RESPIMAT) 00 Medical 2.5 Branch mcg/actuati on Mist tiotropium 2021-0 Yes 1{puff} Inhale 1 [facility] bromide 8-12 Puff ity of (SPIRIVA 00:00: daily. [place] RESPIMAT) 00 Medical 2.5 Branch mcg/actuati on Mist tiotropium 2021-0 Yes 1{puff} Inhale 1 [facility] bromide 8-12 Puff ity of (SPIRIVA 00:00: daily. [place] RESPIMAT) 00 Medical 2.5 Branch mcg/actuati on Mist tiotropium 2021-0 Yes 1{puff} Inhale 1 [facility] bromide 8-12 Puff ity of (SPIRIVA 00:00: daily. [place] RESPIMAT) 00 Medical 2.5 Branch mcg/actuati on Mist tiotropium 2021-0 Yes 1{puff} Inhale 1 [facility] bromide 8-12 Puff ity of (SPIRIVA 00:00: daily. [place] RESPIMAT) 00 Medical 2.5 Branch mcg/actuati on Mist tiotropium 2021-0 Yes 1{puff} Inhale 1 [facility] bromide 8-12 Puff ity of (SPIRIVA 00:00: daily. [place] RESPIMAT) 00 Medical 2.5 Branch mcg/actuati on Mist tiotropium 2021-0 Yes 1{puff} Inhale 1 [facility] bromide 8-12 Puff ity of (SPIRIVA 00:00: daily. [place] RESPIMAT) 00 Medical 2.5 Branch mcg/actuati on Mist tiotropium 2021-0 Yes 1{puff} Inhale 1 [facility] bromide 8-12 Puff ity of (SPIRIVA 00:00: daily. [place] RESPIMAT) 00 Medical 2.5 Branch mcg/actuati on Mist tiotropium 2021-0 Yes 1{puff} Inhale 1 [facility] bromide 8-12 Puff ity of (SPIRIVA 00:00: daily. [place] RESPIMAT) 00 Medical 2.5 Branch mcg/actuati on Mist tiotropium 0 Yes 1{puff} Inhale 1 [facility] bromide 8-12 Puff ity of (SPIRIVA 00:00: daily. [place] RESPIMAT) 00 Medical 2.5 Branch mcg/actuati on Mist tiotropium 2021-0 Yes 1{puff} Inhale 1 [facility] bromide 8-12 Puff ity of (SPIRIVA 00:00: daily. [place] RESPIMAT) 00 Medical 2.5 Branch mcg/actuati on Mist tiotropium 2021-0 Yes 1{puff} Inhale 1 [facility] bromide 8-12 Puff ity of (SPIRIVA 00:00: daily. [place] RESPIMAT) 00 Medical 2.5 Branch mcg/actuati on Mist tiotropium 2021-0 Yes 1{puff} Inhale 1 [facility] bromide 8-12 Puff ity of (SPIRIVA 00:00: daily. [place] RESPIMAT) 00 Medical 2.5 Branch mcg/actuati on Mist tiotropium 2021-0 Yes 1{puff} Inhale 1 [facility] bromide 8-12 Puff ity of (SPIRIVA 00:00: daily. [place] RESPIMAT) 00 Medical 2.5 Branch mcg/actuati on Mist tiotropium 2021-0 Yes 1{puff} Inhale 1 [facility] bromide 8-12 Puff ity of (SPIRIVA 00:00: daily. [place] RESPIMAT) 00 Medical 2.5 Branch mcg/actuati on Mist tiotropium 2021-0 Yes 1{puff} Inhale 1 [facility] bromide 8-12 Puff ity of (SPIRIVA 00:00: daily. [place] RESPIMAT) 00 Medical 2.5 Branch mcg/actuati on Mist tiotropium 2021-0 Yes 1{puff} Inhale 1 [facility] bromide 8-12 Puff ity of (SPIRIVA 00:00: daily. [place] RESPIMAT) 00 Medical 2.5 Branch mcg/actuati on Mist tiotropium 2021-0 Yes 1{puff} Inhale 1 [facility] bromide 8-12 Puff ity of (SPIRIVA 00:00: daily. [place] RESPIMAT) 00 Medical 2.5 Branch mcg/actuati on Mist tiotropium 2021-0 Yes 1{puff} Inhale 1 [facility] bromide 8-12 Puff ity of (SPIRIVA 00:00: daily. [place] RESPIMAT) 00 Medical 2.5 Branch mcg/actuati on Mist tiotropium 2021-0 Yes 1{puff} Inhale 1 [facility] bromide 8-12 Puff ity of (SPIRIVA 00:00: daily. [place] RESPIMAT) 00 Medical 2.5 Branch mcg/actuati on Mist tiotropium 2021-0 Yes 1{puff} Inhale 1 [facility] bromide 8-12 Puff ity of (SPIRIVA 00:00: daily. [place] RESPIMAT) 00 Medical 2.5 Branch mcg/actuati on Mist tiotropium 2021-0 Yes 1{puff} Inhale 1 [facility] bromide 8-12 Puff ity of (SPIRIVA 00:00: daily. [place] RESPIMAT) 00 Medical 2.5 Branch mcg/actuati on Mist tiotropium 2021-0 Yes 1{puff} Inhale 1 [facility] bromide 8-12 Puff ity of (SPIRIVA 00:00: daily. [place] RESPIMAT) 00 Medical 2.5 Branch mcg/actuati on Mist tiotropium 2021-0 Yes 1{puff} Inhale 1 [facility] bromide 8-12 Puff ity of (SPIRIVA 00:00: daily. [place] RESPIMAT) 00 Medical 2.5 Branch mcg/actuati on Mist tiotropium 2021-0 Yes 1{puff} Inhale 1 [facility] bromide 8-12 Puff ity of (SPIRIVA 00:00: daily. [place] RESPIMAT) 00 Medical 2.5 Branch mcg/actuati on Mist tiotropium 2021-0 Yes 1{puff} Inhale 1 [facility] bromide 8-12 Puff ity of (SPIRIVA 00:00: daily. [place] RESPIMAT) 00 Medical 2.5 Branch mcg/actuati on Mist tiotropium 2021-0 Yes 1{puff} Inhale 1 [facility] bromide 8-12 Puff ity of (SPIRIVA 00:00: daily. [place] RESPIMAT) 00 Medical 2.5 Branch mcg/actuati on Mist tiotropium 2021-0 Yes 1{puff} Inhale 1 [facility] bromide 8-12 Puff ity of (SPIRIVA 00:00: daily. [place] RESPIMAT) 00 Medical 2.5 Branch mcg/actuati on Mist tiotropium 2022-0 Yes 1{puff} Inhale 1 [facility] bromide 8-12 Puff ity of (SPIRIVA 00:00: daily. [place] RESPIMAT) 00 Medical 2.5 Branch mcg/actuati on Mist tiotropium 2021-0 Yes 1{puff} Inhale 1 [facility] bromide 8-12 Puff ity of (SPIRIVA 00:00: daily. [place] RESPIMAT) 00 Medical 2.5 Branch mcg/actuati on Mist tiotropium 2021-0 Yes 1{puff} Inhale 1 [facility] bromide 8-12 Puff ity of (SPIRIVA 00:00: daily. [place] RESPIMAT) 00 Medical 2.5 Branch mcg/actuati on Mist tiotropium 2021-0 Yes 1{puff} Inhale 1 [facility] bromide 8-12 Puff ity of (SPIRIVA 00:00: daily. [place] RESPIMAT) 00 Medical 2.5 Branch mcg/actuati on Mist tiotropium 2021-0 Yes 1{puff} Inhale 1 [facility] bromide 8-12 Puff ity of (SPIRIVA 00:00: daily. [place] RESPIMAT) 00 Medical 2.5 Branch mcg/actuati on Mist tiotropium 2021-0 Yes 1{puff} Inhale 1 [facility] bromide 8-12 Puff ity of (SPIRIVA 00:00: daily. [place] RESPIMAT) 00 Medical 2.5 Branch mcg/actuati on Mist tiotropium 2021-0 Yes 1{puff} Inhale 1 [facility] bromide 8-12 Puff ity of (SPIRIVA 00:00: daily. [place] RESPIMAT) 00 Medical 2.5 Branch mcg/actuati on Mist tiotropium 2021-0 Yes 1{puff} Inhale 1 [facility] bromide 8-12 Puff ity of (SPIRIVA 00:00: daily. [place] RESPIMAT) 00 Medical 2.5 Branch mcg/actuati on Mist tiotropium 2021-0 Yes 1{puff} Inhale 1 [facility] bromide 8-12 Puff ity of (SPIRIVA 00:00: daily. [place] RESPIMAT) 00 Medical 2.5 Branch mcg/actuati on Mist tiotropium 2021-0 Yes 1{puff} Inhale 1 [facility] bromide 8-12 Puff ity of (SPIRIVA 00:00: daily. [place] RESPIMAT) 00 Medical 2.5 Branch mcg/actuati on Mist tiotropium 0 Yes 1{puff} Inhale 1 [facility] bromide 8-12 Puff ity of (SPIRIVA 00:00: daily. [place] RESPIMAT) 00 Medical 2.5 Branch mcg/actuati on Mist tiotropium 2021-0 Yes 1{puff} Inhale 1 [facility] bromide 8-12 Puff ity of (SPIRIVA 00:00: daily. [place] RESPIMAT) 00 Medical 2.5 Branch mcg/actuati on Mist tiotropium 2021-0 Yes 1{puff} Inhale 1 [facility] bromide 8-12 Puff ity of (SPIRIVA 00:00: daily. [place] RESPIMAT) 00 Medical 2.5 Branch mcg/actuati on Mist tiotropium 2021-0 Yes 1{puff} Inhale 1 [facility] bromide 8-12 Puff ity of (SPIRIVA 00:00: daily. [place] RESPIMAT) 00 Medical 2.5 Branch mcg/actuati on Mist tiotropium 2021-0 Yes 1{puff} Inhale 1 [facility] bromide 8-12 Puff ity of (SPIRIVA 00:00: daily. [place] RESPIMAT) 00 Medical 2.5 Branch mcg/actuati on Mist tiotropium 2021-0 Yes 1{puff} Inhale 1 [facility] bromide 8-12 Puff ity of (SPIRIVA 00:00: daily. [place] RESPIMAT) 00 Medical 2.5 Branch mcg/actuati on Mist tiotropium 2021-0 Yes 1{puff} Inhale 1 [facility] bromide 8-12 Puff ity of (SPIRIVA 00:00: daily. [place] RESPIMAT) 00 Medical 2.5 Branch mcg/actuati on Mist tiotropium 2021-0 Yes 1{puff} Inhale 1 [facility] bromide 8-12 Puff ity of (SPIRIVA 00:00: daily. [place] RESPIMAT) 00 Medical 2.5 Branch mcg/actuati on Mist tiotropium 2021-0 Yes 1{puff} Inhale 1 [facility] bromide 8-12 Puff ity of (SPIRIVA 00:00: daily. [place] RESPIMAT) 00 Medical 2.5 Branch mcg/actuati on Mist tiotropium 2021-0 Yes 1{puff} Inhale 1 [facility] bromide 8-12 Puff ity of (SPIRIVA 00:00: daily. [place] RESPIMAT) 00 Medical 2.5 Branch mcg/actuati on Mist tiotropium 2021-0 Yes 1{puff} Inhale 1 [facility] bromide 8-12 Puff ity of (SPIRIVA 00:00: daily. [place] RESPIMAT) 00 Medical 2.5 Branch mcg/actuati on Mist tiotropium 2021-0 Yes 1{puff} Inhale 1 [facility] bromide 8-12 Puff ity of (SPIRIVA 00:00: daily. [place] RESPIMAT) 00 Medical 2.5 Branch mcg/actuati on Mist tiotropium 2021-0 Yes 1{puff} Inhale 1 [facility] bromide 8-12 Puff ity of (SPIRIVA 00:00: daily. [place] RESPIMAT) 00 Medical 2.5 Branch mcg/actuati on Mist tiotropium 2021-0 Yes 1{puff} Inhale 1 [facility] bromide 8-12 Puff ity of (SPIRIVA 00:00: daily. [place] RESPIMAT) 00 Medical 2.5 Branch mcg/actuati on Mist tiotropium 2021-0 Yes 1{puff} Inhale 1 [facility] bromide 8-12 Puff ity of (SPIRIVA 00:00: daily. [place] RESPIMAT) 00 Medical 2.5 Branch mcg/actuati on Mist tiotropium 2021-0 Yes 1{puff} Inhale 1 [facility] bromide 8-12 Puff ity of (SPIRIVA 00:00: daily. [place] RESPIMAT) 00 Medical 2.5 Branch mcg/actuati on Mist tiotropium 2021-0 Yes 1{puff} Inhale 1 [facility] bromide 8-12 Puff ity of (SPIRIVA 00:00: daily. [place] RESPIMAT) 00 Medical 2.5 Branch mcg/actuati on Mist tiotropium 2021-0 Yes 1{puff} Inhale 1 [facility] bromide 8-12 Puff ity of (SPIRIVA 00:00: daily. [place] RESPIMAT) 00 Medical 2.5 Branch mcg/actuati on Mist tiotropium 2021-0 Yes 1{puff} Inhale 1 [facility] bromide 8-12 Puff ity of (SPIRIVA 00:00: daily. [place] RESPIMAT) 00 Medical 2.5 Branch mcg/actuati on Mist tiotropium 0 Yes 1{puff} Inhale 1 [facility] bromide 8-12 Puff ity of (SPIRIVA 00:00: daily. [place] RESPIMAT) 00 Medical 2.5 Branch mcg/actuati on Mist tiotropium 2021-0 Yes 1{puff} Inhale 1 [facility] bromide 8-12 Puff ity of (SPIRIVA 00:00: daily. [place] RESPIMAT) 00 Medical 2.5 Branch mcg/actuati on Mist tiotropium 2021-0 Yes 1{puff} Inhale 1 [facility] bromide 8-12 Puff ity of (SPIRIVA 00:00: daily. [place] RESPIMAT) 00 Medical 2.5 Branch mcg/actuati on Mist tiotropium 2021-0 Yes 1{puff} Inhale 1 [facility] bromide 8-12 Puff ity of (SPIRIVA 00:00: daily. [place] RESPIMAT) 00 Medical 2.5 Branch mcg/actuati on Mist tiotropium 2021-0 Yes 1{puff} Inhale 1 [facility] bromide 8-12 Puff ity of (SPIRIVA 00:00: daily. [place] RESPIMAT) 00 Medical 2.5 Branch mcg/actuati on Mist tiotropium 2021-0 Yes 1{puff} Inhale 1 [facility] bromide 8-12 Puff ity of (SPIRIVA 00:00: daily. [place] RESPIMAT) 00 Medical 2.5 Branch mcg/actuati on Mist tiotropium 2021-0 Yes 1{puff} Inhale 1 [facility] bromide 8-12 Puff ity of (SPIRIVA 00:00: daily. [place] RESPIMAT) 00 Medical 2.5 Branch mcg/actuati on Mist tiotropium 2021-0 Yes 1{puff} Inhale 1 [facility] bromide 8-12 Puff ity of (SPIRIVA 00:00: daily. [place] RESPIMAT) 00 Medical 2.5 Branch mcg/actuati on Mist tiotropium 2021-0 Yes 1{puff} Inhale 1 [facility] bromide 8-12 Puff ity of (SPIRIVA 00:00: daily. [place] RESPIMAT) 00 Medical 2.5 Branch mcg/actuati on Mist tiotropium 2021-0 Yes 1{puff} Inhale 1 [facility] bromide 8-12 Puff ity of (SPIRIVA 00:00: daily. [place] RESPIMAT) 00 Medical 2.5 Branch mcg/actuati on Mist tiotropium 2-0 Yes 1{puff} Inhale 1 [facility] bromide 8-12 Puff ity of (SPIRIVA 00:00: daily. [place] RESPIMAT) 00 Medical 2.5 Branch mcg/actuati on Mist tiotropium 2021-0 Yes 1{puff} Inhale 1 [facility] bromide 8-12 Puff ity of (SPIRIVA 00:00: daily. [place] RESPIMAT) 00 Medical 2.5 Branch mcg/actuati on Mist tiotropium 2021-0 Yes 1{puff} Inhale 1 [facility] bromide 8-12 Puff ity of (SPIRIVA 00:00: daily. [place] RESPIMAT) 00 Medical 2.5 Branch mcg/actuati on Mist tiotropium 2021-0 Yes 1{puff} Inhale 1 [facility] bromide 8-12 Puff ity of (SPIRIVA 00:00: daily. [place] RESPIMAT) 00 Medical 2.5 Branch mcg/actuati on Mist tiotropium 2021-0 Yes 1{puff} Inhale 1 [facility] bromide 8-12 Puff ity of (SPIRIVA 00:00: daily. [place] RESPIMAT) 00 Medical 2.5 Branch mcg/actuati on Mist tiotropium 2021-0 Yes 1{puff} Inhale 1 [facility] bromide 8-12 Puff ity of (SPIRIVA 00:00: daily. [place] RESPIMAT) 00 Medical 2.5 Branch mcg/actuati on Mist tiotropium 2-0 Yes 1{puff} Inhale 1 [facility] bromide 8-12 Puff ity of (SPIRIVA 00:00: daily. [place] RESPIMAT) 00 Medical 2.5 Branch mcg/actuati on Mist tiotropium 2022-0 2023- No 1{puff} Inhale 1 [facility] bromide 8-12 03-21 Puff ity of (SPIRIVA 00:00: 00:00 daily. [place] RESPIMAT) 00 :00 Medical 2.5 Branch mcg/actuati on Mist tiotropium 2022-0 2023- No 1{puff} Inhale 1 [facility] bromide 8-12 03-21 Puff ity of (SPIRIVA 00:00: 00:00 daily. [place] RESPIMAT) 00 :00 Medical 2.5 Branch mcg/actuati on Mist tiotropium 2021-0 2023- No 1{puff} Inhale 1 [facility] bromide 05-06 03-21 Puff ity of (SPIRIVA 00:00: 00:00 daily. [place] RESPIMAT) 00 :00 Medical 2.5 Branch mcg/actuati on Mist esomeprazol 2022-0 Yes 20mg Take 20 mg [facility] e 20 mg 7-25 by mouth 2 ity of capsule 18:00: (two) [place] 13 times Medical daily Branch before breakfast and dinner. esomeprazol 2022-0 Yes 20mg Take 20 mg [facility] e 20 mg 7-25 by mouth 2 ity of capsule 18:00: (two) [place] 13 times Medical daily Branch before breakfast and dinner. esomeprazol 2022-0 Yes 20mg Take 20 mg [facility] e 20 mg 7-25 by mouth 2 ity of capsule 18:00: (two) [place] 13 times Medical daily Branch before breakfast and dinner. esomeprazol 2022-0 Yes 20mg Take 20 mg [facility] 20 mg 7-25 by mouth 2 ity of capsule 18:00: (two) [place] 13 times Medical daily Branch before breakfast and dinner. esomeprazol 2022-0 Yes 20mg Take 20 mg [facility] 20 mg 7-25 by mouth 2 ity of capsule 18:00: (two) [place] 13 times Medical daily Branch before breakfast and dinner. esomeprazol 2022-0 Yes 20mg Take 20 mg [facility] 20 mg 7-25 by mouth 2 ity of capsule 18:00: (two) [place] 13 times Medical daily Branch before breakfast and dinner. esomeprazol 2022-0 Yes 20mg Take 20 mg [facility] 20 mg 7-25 by mouth 2 ity of capsule 18:00: (two) [place] 13 times Medical daily Branch before breakfast and dinner. esomeprazol 2022-0 Yes 20mg Take 20 mg [facility] 20 mg 7-25 by mouth 2 ity of capsule 18:00: (two) [place] 13 times Medical daily Branch before breakfast and dinner. esomeprazol 2022-0 Yes 20mg Take 20 mg [facility] 20 mg 7-25 by mouth 2 ity of capsule 18:00: (two) [place] 13 times Medical daily Branch before breakfast and dinner. esomeprazol 2022-0 Yes 20mg Take 20 mg [facility] 20 mg 7-25 by mouth 2 [facility] of capsule 18:00: (two) [place] 13 times Medical daily Branch before breakfast and dinner. esomeprazol 2022-0 Yes 20mg Take 20 mg [facility] 20 mg 7-25 by mouth 2 [facility] of capsule 18:00: (two) [place] 13 times Medical daily Branch before breakfast and dinner. esomeprazol 2022-0 Yes 20mg Take 20 mg [facility] 20 mg 7-25 by mouth 2 [facility] of capsule 18:00: (two) [place] 13 times Medical daily Branch before breakfast and dinner. esomeprazol 2022-0 Yes 20mg Take 20 mg [facility] 20 mg 7-25 by mouth 2 ity of capsule 18:00: (two) [place] 13 times Medical daily Branch before breakfast and dinner. esomeprazol 2022-0 Yes 20mg Take 20 mg [facility] 20 mg 7-25 by mouth 2 it[facility] of capsule 18:00: (two) [place] 13 times Medical daily Branch before breakfast and dinner. esomeprazol 2022-0 Yes 20mg Take 20 mg [facility] 20 mg 7-25 by mouth 2 [facility]y of capsule 18:00: (two) [place] 13 times Medical daily Branch before breakfast and dinner. esomeprazol 2022-0 Yes 20mg Take 20 mg [facility] 20 mg 7-25 by mouth 2 [facility]y of capsule 18:00: (two) [place] 13 times Medical daily Branch before breakfast and dinner. esomeprazol 2022-0 Yes 20mg Take 20 mg [facility] 20 mg 7-25 by mouth 2 ity of capsule 18:00: (two) [place] 13 times Medical daily Branch before breakfast and dinner. esomeprazol 2022-0 Yes 20mg Take 20 mg [facility] 20 mg 7-25 by mouth 2 [facility]y of capsule 18:00: (two) [place] 13 times Medical daily Branch before breakfast and dinner. esomeprazol 2022-0 Yes 20mg Take 20 mg [facility] 20 mg 7-25 by mouth 2 [facility]y of capsule 18:00: (two) [place] 13 times Medical daily Branch before breakfast and dinner. esomeprazol 2022-0 Yes 20mg Take 20 mg [facility] 20 mg 7-25 by mouth 2 [facility]y of capsule 18:00: (two) [place] 13 times Medical daily Branch before breakfast and dinner. esomeprazol 2022-0 Yes 20mg Take 20 mg [facility] 20 mg 7-25 by mouth 2 ity of capsule 18:00: (two) [place] 13 times Medical daily Branch before breakfast and dinner. esomeprazol 2022-0 Yes 20mg Take 20 mg [facility] 20 mg 7-25 by mouth 2 ity of capsule 18:00: (two) [place] 13 times Medical daily Branch before breakfast and dinner. esomeprazol 2022-0 Yes 20mg Take 20 mg [facility] 20 mg 7-25 by mouth 2 ity of capsule 18:00: (two) [place] 13 times Medical daily Branch before breakfast and dinner. esomeprazol 2022-0 Yes 20mg Take 20 mg [facility] 20 mg 7-25 by mouth 2 ity of capsule 18:00: (two) [place] 13 times Medical daily Branch before breakfast and dinner. esomeprazol 2022-0 Yes 20mg Take 20 mg [facility] 20 mg 7-25 by mouth 2 ity of capsule 18:00: (two) [place] 13 times Medical daily Branch before breakfast and dinner. esomeprazol 2022-0 Yes 20mg Take 20 mg [facility] 20 mg 7-25 by mouth 2 ity of capsule 18:00: (two) [place] 13 times Medical daily Branch before breakfast and dinner. esomeprazol 2022-0 Yes 20mg Take 20 mg [facility] 20 mg 7-25 by mouth 2 ity of capsule 18:00: (two) [place] 13 times Medical daily Branch before breakfast and dinner. esomeprazol 2022-0 Yes 20mg Take 20 mg [facility] 20 mg 7-25 by mouth 2 ity of capsule 18:00: (two) [place] 13 times Medical daily Branch before breakfast and dinner. esomeprazol 2022-0 Yes 20mg Take 20 mg [facility] 20 mg 7-25 by mouth 2 ity of capsule 18:00: (two) [place] 13 times Medical daily Branch before breakfast and dinner. esomeprazol 2022-0 Yes 20mg Take 20 mg [facility] 20 mg 7-25 by mouth 2 ity of capsule 18:00: (two) [place] 13 times Medical daily Branch before breakfast and dinner. esomeprazol 2022-0 Yes 20mg Take 20 mg [facility] 20 mg 7-25 by mouth 2 ity of capsule 18:00: (two) [place] 13 times Medical daily Branch before breakfast and dinner. esomeprazol 2022-0 Yes 20mg Take 20 mg [facility] 20 mg 7-25 by mouth 2 ity of capsule 18:00: (two) [place] 13 times Medical daily Branch before breakfast and dinner. esomeprazol 2022-0 Yes 20mg Take 20 mg [facility] 20 mg 7-25 by mouth 2 ity of capsule 18:00: (two) [place] 13 times Medical daily Branch before breakfast and dinner. esomeprazol 2022-0 Yes 20mg Take 20 mg [facility] 20 mg 7-25 by mouth 2 ity of capsule 18:00: (two) [place] 13 times Medical daily Branch before breakfast and dinner. esomeprazol 2022-0 Yes 20mg Take 20 mg [facility] 20 mg 7-25 by mouth 2 ity of capsule 18:00: (two) [place] 13 times Medical daily Branch before breakfast and dinner. esomeprazol 2022-0 Yes 20mg Take 20 mg [facility] 20 mg 7-25 by mouth 2 ity of capsule 18:00: (two) [place] 13 times Medical daily Branch before breakfast and dinner. esomeprazol 2022-0 Yes 20mg Take 20 mg [facility] 20 mg 7-25 by mouth 2 ity of capsule 18:00: (two) [place] 13 times Medical daily Branch before breakfast and dinner. esomeprazol 2022-0 Yes 20mg Take 20 mg [facility] 20 mg 7-25 by mouth 2 ity of capsule 18:00: (two) [place] 13 times Medical daily Branch before breakfast and dinner. esomeprazol 2022-0 Yes 20mg Take 20 mg [facility] 20 mg 7-25 by mouth 2 ity of capsule 18:00: (two) [place] 13 times Medical daily Branch before breakfast and dinner. esomeprazol 2022-0 Yes 20mg Take 20 mg [facility] 20 mg 7-25 by mouth 2 ity of capsule 18:00: (two) [place] 13 times Medical daily Branch before breakfast and dinner. esomeprazol 2022-0 Yes 20mg Take 20 mg [facility] 20 mg 7-25 by mouth 2 ity of capsule 18:00: (two) [place] 13 times Medical daily Branch before breakfast and dinner. esomeprazol 2022-0 Yes 20mg Take 20 mg [facility] 20 mg 7-25 by mouth 2 ity of capsule 18:00: (two) [place] 13 times Medical daily Branch before breakfast and dinner. esomeprazol 2022-0 Yes 20mg Take 20 mg [facility] 20 mg 7-25 by mouth 2 ity of capsule 18:00: (two) [place] 13 times Medical daily Branch before breakfast and dinner. esomeprazol 2022-0 Yes 20mg Take 20 mg [facility] 20 mg 7-25 by mouth 2 ity of capsule 18:00: (two) [place] 13 times Medical daily Branch before breakfast and dinner. esomeprazol 2022-0 Yes 20mg Take 20 mg [facility] 20 mg 7-25 by mouth 2 ity of capsule 18:00: (two) [place] 13 times Medical daily Branch before breakfast and dinner. roflumilast 2021-0 Yes [id number] 250ug Take 250 [facility] (DALIRESP) 7-25 mcg by ity of 250 mcg Tab 00:00: mouth [place] 00 daily. Medical Branch carvediloL 2021-0 Yes [id number] 12.5mg Take 1 [facility] 12.5 mg 7-25 tablet by ity of tablet 00:00: mouth in [place] [address] the Medical morning Branch and 1 tablet in the evening. Take with meals. roflumilast 2021-0 Yes [id number] 250ug Take 250 [facility] (DALIRESP) 7-25 mcg by ity of 250 mcg Tab 00:00: mouth [place] 00 daily. Medical Branch carvediloL 2021-0 Yes [id number] 12.5mg Take 1 [facility] 12.5 mg 7-25 tablet by ity of tablet 00:00: mouth in [place] [address] the Medical morning Branch and 1 tablet in the evening. Take with meals. roflumilast 2021-0 Yes [id number] 250ug Take 250 [facility] (DALIRESP) 7-25 mcg by ity of 250 mcg Tab 00:00: mouth [place] 00 daily. Medical Branch carvediloL 2021-0 Yes [id number] 12.5mg Take 1 [facility] 12.5 mg 7-25 tablet by ity of tablet 00:00: mouth in [place] 00 the Medical morning Branch and 1 tablet in the evening. Take with meals. roflumilast 2021-0 Yes [id number] 250ug Take 250 [facility] (DALIRESP) 7-25 mcg by ity of 250 mcg Tab 00:00: mouth [place] 00 daily. Medical Branch carvediloL 2021-0 Yes [id number] 12.5mg Take 1 [facility] 12.5 mg 7-25 tablet by ity of tablet 00:00: mouth in [place] 00 the Medical morning Branch and 1 tablet in the evening. Take with meals. roflumilast 2021-0 Yes [id number] 250ug Take 250 [facility] (DALIRESP) 7-25 mcg by ity of 250 mcg Tab 00:00: mouth [place] 00 daily. Medical Branch carvediloL 2021-0 Yes [id number] 12.5mg Take 1 [facility] 12.5 mg 7-25 tablet by ity of tablet 00:00: mouth in [place] 00 the [facility] morning Branch and 1 tablet in the evening. Take with meals. roflumilast 2021-0 Yes [id number] 250ug Take 250 [facility] (DALIRESP) 7-25 mcg by ity of 250 mcg Tab 00:00: mouth [place] 00 daily. Medical Branch carvediloL 2021-0 Yes [id number] 12.5mg Take 1 [facility] 12.5 mg 7-25 tablet by ity of tablet 00:00: mouth in [place] 00 the [facility] morning Branch and 1 tablet in the evening. Take with meals. roflumilast 2021-0 Yes [id number] 250ug Take 250 [facility] (DALIRESP) 7-25 mcg by ity of 250 mcg Tab 00:00: mouth [place] 00 daily. Medical Branch carvediloL 2021-0 Yes [id number] 12.5mg Take 1 [facility] 12.5 mg 7-25 tablet by ity of tablet 00:00: mouth in [place] 00 the [facility] morning Branch and 1 tablet in the evening. Take with meals. roflumilast 2021-0 Yes [id number] 250ug Take 250 [facility] (DALIRESP) 7-25 mcg by ity of 250 mcg Tab 00:00: mouth [place] 00 daily. Medical Branch carvediloL 2021-0 Yes [id number] 12.5mg Take 1 [facility] 12.5 mg 7-25 tablet by ity of tablet 00:00: mouth in [place] 00 the Medical morning Branch and 1 tablet in the evening. Take with meals. roflumilast 2021-0 Yes [id number] 250ug Take 250 [facility] (DALIRESP) 7-25 mcg by ity of 250 mcg Tab 00:00: mouth [place] 00 daily. Medical Branch carvediloL 2021-0 Yes [id number] 12.5mg Take 1 [facility] 12.5 mg 7-25 tablet by ity of tablet 00:00: mouth in [place] 00 the Medical morning Branch and 1 tablet in the evening. Take with meals. roflumilast 2021-0 Yes [id number] 250ug Take 250 [facility] (DALIRESP) 7-25 mcg by ity of 250 mcg Tab 00:00: mouth [place] 00 daily. Medical Branch carvediloL 0 Yes [id number] 12.5mg Take 1 [facility] 12.5 mg 7-25 tablet by ity of tablet 00:00: mouth in [place] 00 the Medical morning Branch and 1 tablet in the evening. Take with meals. roflumilast 2021-0 Yes [id number] 250ug Take 250 [facility] (DALIRESP) 7-25 mcg by ity of 250 mcg Tab 00:00: mouth [place] 00 daily. Medical Branch carvediloL 0 Yes [id number] 12.5mg Take 1 [facility] 12.5 mg 7-25 tablet by ity of tablet 00:00: mouth in [place] 00 the Medical morning Branch and 1 tablet in the evening. Take with meals. roflumilast 2021-0 Yes [id number] 250ug Take 250 [facility] (DALIRESP) 7-25 mcg by ity of 250 mcg Tab 00:00: mouth [place] 00 daily. Medical Branch carvediloL 2021-0 Yes [id number] 12.5mg Take 1 [facility] 12.5 mg 7-25 tablet by ity of tablet 00:00: mouth in [place] 00 the [facility] morning Branch and 1 tablet in the evening. Take with meals. roflumilast 2021-0 Yes [id number] 250ug Take 250 [facility] (DALIRESP) 7-25 mcg by ity of 250 mcg Tab 00:00: mouth [place] 00 daily. Medical Branch carvediloL 2022-0 Yes [id number] 12.5mg Take 1 [facility] 12.5 mg 7-25 tablet by ity of tablet 00:00: mouth in [place] 00 the Medical morning Branch and 1 tablet in the evening. Take with meals. roflumilast 2021-0 Yes [id number] 250ug Take 250 [facility] (DALIRESP) 7-25 mcg by ity of 250 mcg Tab 00:00: mouth [place] 00 daily. Medical Branch carvediloL 2021-0 Yes [id number] 12.5mg Take 1 [facility] 12.5 mg 7-25 tablet by ity of tablet 00:00: mouth in [place] 00 the Medical morning Branch and 1 tablet in the evening. Take with meals. roflumilast 2021-0 Yes [id number] 250ug Take 250 [facility] (DALIRESP) 7-25 mcg by ity of 250 mcg Tab 00:00: mouth [place] 00 daily. Medical Branch carvediloL 0 Yes [id number] 12.5mg Take 1 [facility] 12.5 mg 7-25 tablet by ity of tablet 00:00: mouth in [place] 00 the Medical morning Branch and 1 tablet in the evening. Take with meals. roflumilast 2021-0 Yes [id number] 250ug Take 250 [facility] (DALIRESP) 7-25 mcg by ity of 250 mcg Tab 00:00: mouth [place] 00 daily. Medical Branch carvediloL 2021-0 Yes [id number] 12.5mg Take 1 [facility] 12.5 mg 7-25 tablet by ity of tablet 00:00: mouth in [place] 00 the Medical morning Branch and 1 tablet in the evening. Take with meals. roflumilast 2021-0 Yes [id number] 250ug Take 250 [facility] (DALIRESP) 7-25 mcg by ity of 250 mcg Tab 00:00: mouth [place] 00 daily. Medical Branch carvediloL 2021-0 Yes [id number] 12.5mg Take 1 [facility] 12.5 mg 7-25 tablet by ity of tablet 00:00: mouth in [place] 00 the Medical morning Branch and 1 tablet in the evening. Take with meals. roflumilast 2021-0 Yes [id number] 250ug Take 250 [facility] (DALIRESP) 7-25 mcg by ity of 250 mcg Tab 00:00: mouth [place] 00 daily. Medical Branch carvediloL 2021-0 Yes [id number] 12.5mg Take 1 [facility] 12.5 mg 7-25 tablet by ity of tablet 00:00: mouth in [place] 00 the Medical morning Branch and 1 tablet in the evening. Take with meals. roflumilast 2021-0 Yes [id number] 250ug Take 250 [facility] (DALIRESP) 7-25 mcg by ity of 250 mcg Tab 00:00: mouth [place] 00 daily. Medical Branch carvediloL 2021-0 Yes [id number] 12.5mg Take 1 [facility] 12.5 mg 7-25 tablet by ity of tablet 00:00: mouth in [place] 00 the Medical morning Branch and 1 tablet in the evening. Take with meals. roflumilast 2021-0 Yes [id number] 250ug Take 250 [facility] (DALIRESP) 7-25 mcg by ity of 250 mcg Tab 00:00: mouth [place] 00 daily. Medical Branch carvediloL 2021-0 Yes [id number] 12.5mg Take 1 [facility] 12.5 mg 7-25 tablet by ity of tablet 00:00: mouth in [place] 00 the Medical morning Branch and 1 tablet in the evening. Take with meals. roflumilast 2021-0 Yes [id number] 250ug Take 250 [facility] (DALIRESP) 7-25 mcg by ity of 250 mcg Tab 00:00: mouth [place] 00 daily. Medical Branch carvediloL 2021-0 Yes [id number] 12.5mg Take 1 [facility] 12.5 mg 7-25 tablet by ity of tablet 00:00: mouth in [place] 00 the Medical morning Branch and 1 tablet in the evening. Take with meals. roflumilast 2021-0 Yes [id number] 250ug Take 250 [facility] (DALIRESP) 7-25 mcg by ity of 250 mcg Tab 00:00: mouth [place] 00 daily. Medical Branch carvediloL 2021-0 Yes [id number] 12.5mg Take 1 [facility] 12.5 mg 7-25 tablet by ity of tablet 00:00: mouth in [place] 00 the Medical morning Branch and 1 tablet in the evening. Take with meals. roflumilast 2021-0 Yes [id number] 250ug Take 250 [facility] (DALIRESP) 7-25 mcg by ity of 250 mcg Tab 00:00: mouth [place] 00 daily. Medical Branch carvediloL 2021-0 Yes [id number] 12.5mg Take 1 [facility] 12.5 mg 7-25 tablet by ity of tablet 00:00: mouth in [place] 00 the Medical morning Branch and 1 tablet in the evening. Take with meals. roflumilast 2021-0 Yes [id number] 250ug Take 250 [facility] (DALIRESP) 7-25 mcg by ity of 250 mcg Tab 00:00: mouth [place] 00 daily. [facility] Branch carvediloL 2021-0 Yes [id number] 12.5mg Take 1 [facility] 12.5 mg 7-25 tablet by ity of tablet 00:00: mouth in [place] 00 the Medical morning Branch and 1 tablet in the evening. Take with meals. roflumilast 2021-0 Yes [id number] 250ug Take 250 [facility] (DALIRESP) 7-25 mcg by ity of 250 mcg Tab 00:00: mouth [place] 00 daily. [facility] Branch carvediloL 0 Yes [id number] 12.5mg Take 1 [facility] 12.5 mg 7-25 tablet by ity of tablet 00:00: mouth in [place] 00 the Medical morning Branch and 1 tablet in the evening. Take with meals. roflumilast 2021-0 Yes [id number] 250ug Take 250 [facility] (DALIRESP) 7-25 mcg by ity of 250 mcg Tab 00:00: mouth [place] 00 daily. [facility] Branch carvediloL 0 Yes [id number] 12.5mg Take 1 [facility] 12.5 mg 7-25 tablet by ity of tablet 00:00: mouth in [place] 00 the Medical morning Branch and 1 tablet in the evening. Take with meals. roflumilast 2021-0 Yes [id number] 250ug Take 250 [facility] (DALIRESP) 7-25 mcg by ity of 250 mcg Tab 00:00: mouth [place] 00 daily. [facility] Branch carvediloL 2021-0 Yes [id number] 12.5mg Take 1 [facility] 12.5 mg 7-25 tablet by ity of tablet 00:00: mouth in [place] 00 the Medical morning Branch and 1 tablet in the evening. Take with meals. roflumilast 2021-0 Yes [id number] 250ug Take 250 [facility] (DALIRESP) 7-25 mcg by ity of 250 mcg Tab 00:00: mouth [place] 00 daily. [facility] Branch carvediloL 2021-0 Yes [id number] 12.5mg Take 1 [facility] 12.5 mg 7-25 tablet by ity of tablet 00:00: mouth in [place] 00 the Medical morning Branch and 1 tablet in the evening. Take with meals. roflumilast 2021-0 Yes [id number] 250ug Take 250 [facility] (DALIRESP) 7-25 mcg by ity of 250 mcg Tab 00:00: mouth [place] 00 daily. Medical Branch carvediloL 2021-0 Yes [id number] 12.5mg Take 1 [facility] 12.5 mg 7-25 tablet by ity of tablet 00:00: mouth in [place] 00 the Medical morning Branch and 1 tablet in the evening. Take with meals. roflumilast 2021-0 Yes [id number] 250ug Take 250 [facility] (DALIRESP) 7-25 mcg by ity of 250 mcg Tab 00:00: mouth [place] 00 daily. Medical Branch carvediloL 2021-0 Yes [id number] 12.5mg Take 1 [facility] 12.5 mg 7-25 tablet by ity of tablet 00:00: mouth in [place] 00 the Medical morning Branch and 1 tablet in the evening. Take with meals. roflumilast 2021-0 Yes [id number] 250ug Take 250 [facility] (DALIRESP) 7-25 mcg by ity of 250 mcg Tab 00:00: mouth [place] daily. Medical Branch carvediloL 2021-0 Yes [id number] 12.5mg Take 1 [facility] 12.5 mg 7-25 tablet by ity of tablet 00:00: mouth in [place] 00 the Medical morning Branch and 1 tablet in the evening. Take with meals. roflumilast 2021-0 Yes [id number] 250ug Take 250 [facility] (DALIRESP) 7-25 mcg by ity of 250 mcg Tab 00:00: mouth [place] 00 daily. Medical Branch carvediloL 2021-0 Yes [id number] 12.5mg Take 1 [facility] 12.5 mg 7-25 tablet by ity of tablet 00:00: mouth in [place] 00 the Medical morning Branch and 1 tablet in the evening. Take with meals. roflumilast 2021-0 Yes [id number] 250ug Take 250 [facility] (DALIRESP) 7-25 mcg by ity of 250 mcg Tab 00:00: mouth [place] 00 daily. Medical Branch carvediloL 2021-0 Yes [id number] 12.5mg Take 1 [facility] 12.5 mg 7-25 tablet by ity of tablet 00:00: mouth in [place] 00 the Medical morning Branch and 1 tablet in the evening. Take with meals. roflumilast 2021-0 Yes [id number] 250ug Take 250 [facility] (DALIRESP) 7-25 mcg by ity of 250 mcg Tab 00:00: mouth [place] 00 daily. Medical Branch carvediloL 2021-0 Yes [id number] 12.5mg Take 1 [facility] 12.5 mg 7-25 tablet by ity of tablet 00:00: mouth in [place] 00 the Medical morning Branch and 1 tablet in the evening. Take with meals. roflumilast 2021-0 Yes [id number] 250ug Take 250 [facility] (DALIRESP) 7-25 mcg by ity of 250 mcg Tab 00:00: mouth [place] 00 daily. Medical Branch carvediloL 0 Yes [id number] 12.5mg Take 1 [facility] 12.5 mg 7-25 tablet by ity of tablet 00:00: mouth in [place] 00 the Medical morning Branch and 1 tablet in the evening. Take with meals. roflumilast 2021-0 Yes [id number] 250ug Take 250 [facility] (DALIRESP) 7-25 mcg by ity of 250 mcg Tab 00:00: mouth [place] daily. Medical Branch carvediloL 0 Yes [id number] 12.5mg Take 1 [facility] 12.5 mg 7-25 tablet by ity of tablet 00:00: mouth in [place] 00 the Medical morning Branch and 1 tablet in the evening. Take with meals. roflumilast 2021-0 Yes [id number] 250ug Take 250 [facility] (DALIRESP) 7-25 mcg by ity of 250 mcg Tab 00:00: mouth [place] 00 daily. Medical Branch carvediloL 0 Yes [id number] 12.5mg Take 1 [facility] 12.5 mg 7-25 tablet by ity of tablet 00:00: mouth in [place] 00 the Medical morning Branch and 1 tablet in the evening. Take with meals. roflumilast 2021-0 Yes [id number] 250ug Take 250 [facility] (DALIRESP) 7-25 mcg by ity of 250 mcg Tab 00:00: mouth [place] 00 daily. Medical Branch carvediloL 2021-0 Yes [id number] 12.5mg Take 1 [facility] 12.5 mg 7-25 tablet by ity of tablet 00:00: mouth in [place] 00 the Medical morning Branch and 1 tablet in the evening. Take with meals. roflumilast 2021-0 Yes [id number] 250ug Take 250 [facility] (DALIRESP) 7-25 mcg by ity of 250 mcg Tab 00:00: mouth [place] 00 daily. Medical Branch carvediloL 0 Yes [id number] 12.5mg Take 1 [facility] 12.5 mg 7-25 tablet by ity of tablet 00:00: mouth in [place] 00 the Medical morning Branch and 1 tablet in the evening. Take with meals. roflumilast 0 Yes [id number] 250ug Take 250 [facility] (DALIRESP) 7-25 mcg by ity of 250 mcg Tab 00:00: mouth [place] 00 daily. Medical Branch carvediloL 0 Yes [id number] 12.5mg Take 1 [facility] 12.5 mg 7-25 tablet by ity of tablet 00:00: mouth in [place] 00 the Medical morning Branch and 1 tablet in the evening. Take with meals. roflumilast 0 Yes [id number] 250ug Take 250 [facility] (DALIRESP) 7-25 mcg by ity of 250 mcg Tab 00:00: mouth [place] 00 daily. Medical Branch roflumilast 0 Yes [id number] 250ug Take 250 [facility] (DALIRESP) 7-25 mcg by ity of 250 mcg Tab 00:00: mouth [place] 00 daily. Medical Branch roflumilast 0 Yes [id number] 250ug Take 250 [facility] (DALIRESP) 7-25 mcg by ity of 250 mcg Tab 00:00: mouth [place] 00 daily. Medical Branch roflumilast 2021-0 Yes [id number] 250ug Take 250 [facility] (DALIRESP) 7-25 mcg by ity of 250 mcg Tab 00:00: mouth [place] 00 daily. Medical Branch roflumilast 2021-0 Yes [id number] 250ug Take 250 [facility] (DALIRESP) 7-25 mcg by ity of 250 mcg Tab 00:00: mouth [place] 00 daily. Medical Branch roflumilast Yes [id number] 250ug Take 250 [facility] (DALIRESP) 7-25 mcg by ity of 250 mcg Tab 00:00: mouth [place] 00 daily. Medical Branch roflumilast 0 Yes [id number] 250ug Take 250 [facility] (DALIRESP) 7-25 mcg by ity of 250 mcg Tab 00:00: mouth [place] 00 daily. Medical Branch roflumilast 0 Yes [id number] 250ug Take 250 [facility] (DALIRESP) 7-25 mcg by ity of 250 mcg Tab 00:00: mouth [place] 00 daily. Medical Branch roflumilast Yes [id number] 250ug Take 250 [facility] (DALIRESP) 7-25 mcg by ity of 250 mcg Tab 00:00: mouth [place] 00 daily. Medical Branch roflumilast Yes [id number] 250ug Take 250 [facility] (DALIRESP) 7-25 mcg by ity of 250 mcg Tab 00:00: mouth [place] 00 daily. Medical Branch roflumilast Yes [id number] 250ug Take 250 [facility] (DALIRESP) 7-25 mcg by ity of 250 mcg Tab 00:00: mouth [place] 00 daily. Medical Branch roflumilast Yes [id number] 250ug Take 250 [facility] (DALIRESP) 7-25 mcg by ity of 250 mcg Tab 00:00: mouth [place] 00 daily. Medical Branch roflumilast Yes [id number] 250ug Take 250 [facility] (DALIRESP) 7-25 mcg by ity of 250 mcg Tab 00:00: mouth [place] 00 daily. Medical Branch roflumilast Yes [id number] 250ug Take 250 [facility] (DALIRESP) 7-25 mcg by ity of 250 mcg Tab 00:00: mouth [place] 00 daily. Medical Branch roflumilast 0 Yes [id number] 250ug Take 250 [facility] (DALIRESP) 7-25 mcg by ity of 250 mcg Tab 00:00: mouth [place] 00 daily. Medical Branch roflumilast 0 Yes [id number] 250ug Take 250 [facility] (DALIRESP) 7-25 mcg by ity of 250 mcg Tab 00:00: mouth [place] 00 daily. Medical Branch roflumilast 0 Yes [id number] 250ug Take 250 [facility] (DALIRESP) 7-25 mcg by ity of 250 mcg Tab 00:00: mouth [place] 00 daily. Medical Branch roflumilast 0 Yes [id number] 250ug Take 250 [facility] (DALIRESP) 7-25 mcg by ity of 250 mcg Tab 00:00: mouth [place] 00 daily. Medical Branch roflumilast 0 Yes [id number] 250ug Take 250 [facility] (DALIRESP) 7-25 mcg by ity of 250 mcg Tab 00:00: mouth [place] 00 daily. Medical Branch roflumilast 0 Yes [id number] 250ug Take 250 [facility] (DALIRESP) 7-25 mcg by ity of 250 mcg Tab 00:00: mouth [place] 00 daily. Medical Branch roflumilast 0 Yes [id number] 250ug Take 250 [facility] (DALIRESP) 7-25 mcg by ity of 250 mcg Tab 00:00: mouth [place] 00 daily. Medical Branch roflumilast 0 Yes [id number] 250ug Take 250 [facility] (DALIRESP) 7-25 mcg by ity of 250 mcg Tab 00:00: mouth [place] 00 daily. Medical Branch roflumilast 0 Yes [id number] 250ug Take 250 [facility] (DALIRESP) 7-25 mcg by ity of 250 mcg Tab 00:00: mouth [place] 00 daily. Medical Branch roflumilast 0 Yes [id number] 250ug Take 250 [facility] (DALIRESP) 7-25 mcg by ity of 250 mcg Tab 00:00: mouth [place] 00 daily. Medical Branch roflumilast 0 Yes [id number] 250ug Take 250 [facility] (DALIRESP) 7-25 mcg by ity of 250 mcg Tab 00:00: mouth [place] 00 daily. Medical Branch roflumilast 0 Yes [id number] 250ug Take 250 [facility] (DALIRESP) 7-25 mcg by ity of 250 mcg Tab 00:00: mouth [place] 00 daily. Medical Branch roflumilast 0 Yes [id number] 250ug Take 250 [facility] (DALIRESP) 7-25 mcg by ity of 250 mcg Tab 00:00: mouth [place] 00 daily. Medical Branch roflumilast 0 Yes [id number] 250ug Take 250 [facility] (DALIRESP) 7-25 mcg by ity of 250 mcg Tab 00:00: mouth [place] 00 daily. Medical Branch roflumilast 0 Yes [id number] 250ug Take 250 [facility] (DALIRESP) 7-25 mcg by ity of 250 mcg Tab 00:00: mouth [place] 00 daily. Medical Branch roflumilast 0 Yes [id number] 250ug Take 250 [facility] (DALIRESP) 7-25 mcg by ity of 250 mcg Tab 00:00: mouth [place] 00 daily. Medical Branch roflumilast Yes [id number] 250ug Take 250 [facility] (DALIRESP) 7-25 mcg by ity of 250 mcg Tab 00:00: mouth [place] 00 daily. Medical Branch roflumilast Yes [id number] 250ug Take 250 [facility] (DALIRESP) 7-25 mcg by ity of 250 mcg Tab 00:00: mouth [place] 00 daily. [facility] roflumilast Yes [id number] 250ug Take 250 [facility] (DALIRESP) 7-25 mcg by [facility] of 250 mcg Tab 00:00: mouth [place] 00 daily. [facility] roflumilast Yes [id number] 250ug Take 250 [facility] (DALIRESP) 7-25 mcg by ity of 250 mcg Tab 00:00: mouth [place] 00 daily. [facility] roflumilast 0 Yes [id number] 250ug Take 250 [facility] (DALIRESP) 7-25 mcg by [facility] of 250 mcg Tab 00:00: mouth [place] 00 daily. [facility] roflumilast 0 Yes [id number] 250ug Take 250 [facility] (DALIRESP) 7-25 mcg by it[facility] of 250 mcg Tab 00:00: mouth [place] 00 daily. [facility] roflumilast 0 Yes [id number] 250ug Take 250 [facility] (DALIRESP) 7-25 mcg by ity of 250 mcg Tab 00:00: mouth [place] 00 daily. [facility] roflumilast 0 Yes [id number] 250ug Take 250 [facility] (DALIRESP) 7-25 mcg by ity of 250 mcg Tab 00:00: mouth [place] 00 daily. [facility] roflumilast 0 Yes [id number] 250ug Take 250 [facility] (DALIRESP) 7-25 mcg by it[facility] of 250 mcg Tab 00:00: mouth [place] 00 daily. [facility] roflumilast 0 Yes [id number] 250ug Take 250 [facility] (DALIRESP) 7-25 mcg by [facility] of 250 mcg Tab 00:00: mouth [place] 00 daily. [facility] roflumilast 0 Yes [id number] 250ug Take 250 [facility] (DALIRESP) 7-25 mcg by [facility] of 250 mcg Tab 00:00: mouth [place] 00 daily. [facility] roflumilast Yes [id number] 250ug Take 250 [facility] (DALIRESP) 7-25 mcg by [facility] of 250 mcg Tab 00:00: mouth [place] 00 daily. [facility] roflumilast Yes [id number] 250ug Take 250 [facility] (DALIRESP) 7-25 mcg by [facility] of 250 mcg Tab 00:00: mouth [place] 00 daily. [facility] roflumilast Yes [id number] 250ug Take 250 [facility] (DALIRESP) 7-25 mcg by ity of 250 mcg Tab 00:00: mouth [place] 00 daily. [facility] roflumilast Yes [id number] 250ug Take 250 [facility] (DALIRESP) 7-25 mcg by ity of 250 mcg Tab 00:00: mouth [place] 00 daily. [facility] roflumilast 0 Yes [id number] 250ug Take 250 [facility] (DALIRESP) 7-25 mcg by [facility] of 250 mcg Tab 00:00: mouth [place] 00 daily. [facility] roflumilast Yes [id number] 250ug Take 250 [facility] (DALIRESP) 7-25 mcg by it[facility] of 250 mcg Tab 00:00: mouth [place] 00 daily. [facility] roflumilast 0 Yes [id number] 250ug Take 250 [facility] (DALIRESP) 7-25 mcg by [facility] of 250 mcg Tab 00:00: mouth [place] 00 daily. [facility] roflumilast 0 Yes [id number] 250ug Take 250 [facility] (DALIRESP) 7-25 mcg by [facility] of 250 mcg Tab 00:00: mouth [place] 00 daily. [facility] roflumilast 0 Yes [id number] 250ug Take 250 [facility] (DALIRESP) 7-25 mcg by [facility] of 250 mcg Tab 00:00: mouth [place] 00 daily. [facility] roflumilast 0 Yes [id number] 250ug Take 250 [facility] (DALIRESP) 7-25 mcg by [facility] of 250 mcg Tab 00:00: mouth [place] 00 daily. [facility] roflumilast Yes [id number] 250ug Take 250 [facility] (DALIRESP) 7-25 mcg by [facility] of 250 mcg Tab 00:00: mouth [place] 00 daily. [facility] roflumilast Yes [id number] 250ug Take 250 [facility] (DALIRESP) 7-25 mcg by [facility] of 250 mcg Tab 00:00: mouth [place] 00 daily. [facility] roflumilast Yes [id number] 250ug Take 250 [facility] (DALIRESP) 7-25 mcg by [facility] of 250 mcg Tab 00:00: mouth [place] 00 daily. [facility] roflumilast Yes [id number] 250ug Take 250 [facility] (DALIRESP) 7-25 mcg by [facility] of 250 mcg Tab 00:00: mouth [place] 00 daily. [facility] roflumilast Yes [id number] 250ug Take 250 [facility] (DALIRESP) 7-25 mcg by [facility] of 250 mcg Tab 00:00: mouth [place] 00 daily. [facility] roflumilast Yes [id number] 250ug Take 250 [facility] (DALIRESP) 7-25 mcg by [facility] of 250 mcg Tab 00:00: mouth [place] 00 daily. [facility] roflumilast 0 Yes [id number] 250ug Take 250 [facility] (DALIRESP) 7-25 mcg by [facility] of 250 mcg Tab 00:00: mouth [place] 00 daily. [facility] roflumilast 0 Yes [id number] 250ug Take 250 [facility] (DALIRESP) 7-25 mcg by [facility] of 250 mcg Tab 00:00: mouth [place] 00 daily. [facility] roflumilast 0 Yes [id number] 250ug Take 250 [facility] (DALIRESP) 7-25 mcg by [facility] of 250 mcg Tab 00:00: mouth [place] 00 daily. [facility] roflumilast 0 Yes [id number] 250ug Take 250 [facility] (DALIRESP) 7-25 mcg by [facility] of 250 mcg Tab 00:00: mouth [place] 00 daily. [facility] roflumilast 0 Yes [id number] 250ug Take 250 [facility] (DALIRESP) 7-25 mcg by [facility] of 250 mcg Tab 00:00: mouth [place] 00 daily. [facility] roflumilast Yes [id number] 250ug Take 250 [facility] (DALIRESP) 7-25 mcg by [facility] of 250 mcg Tab 00:00: mouth [place] 00 daily. [facility] roflumilast Yes [id number] 250ug Take 250 [facility] (DALIRESP) 7-25 mcg by [facility] of 250 mcg Tab 00:00: mouth [place] 00 daily. [facility] roflumilast 0 Yes [id number] 250ug Take 250 [facility] (DALIRESP) 7-25 mcg by [facility] of 250 mcg Tab 00:00: mouth [place] 00 daily. [facility] roflumilast Yes [id number] 250ug Take 250 [facility] (DALIRESP) 7-25 mcg by [facility] of 250 mcg Tab 00:00: mouth [place] 00 daily. [facility] roflumilast Yes [id number] 250ug Take 250 [facility] (DALIRESP) 7-25 mcg by [facility] of 250 mcg Tab 00:00: mouth [place] 00 daily. [facility] roflumilast 0 Yes [id number] 250ug Take 250 [facility] (DALIRESP) 7-25 mcg by [facility] of 250 mcg Tab 00:00: mouth [place] 00 daily. [facility] roflumilast 0 Yes [id number] 250ug Take 250 [facility] (DALIRESP) 7-25 mcg by [facility] of 250 mcg Tab 00:00: mouth [place] 00 daily. [facility] roflumilast 0 Yes [id number] 250ug Take 250 [facility] (DALIRESP) 7-25 mcg by [facility] of 250 mcg Tab 00:00: mouth [place] 00 daily. [facility] roflumilast 2022-0 Yes [id number] 250ug Take 250 [facility] (DALIRESP) 7-25 mcg by [facility] of 250 mcg Tab 00:00: mouth [place] 00 daily. [facility] roflumilast 2021-0 Yes [id number] 250ug Take 250 [facility] (DALIRESP) 7-25 mcg by [facility] of 250 mcg Tab 00:00: mouth [place] 00 daily. [facility] carvediloL 2021-0 2021- No [id number] 12.5mg Take 1 [facility] 12.5 mg 7-25 12-05 tablet by [facility] of tablet 00:00: 00:00 mouth in [place] 00 :00 the Medical morning Branch and 1 tablet in the evening. Take with meals. carvediloL 2021-0 2021- No [id number] 12.5mg Take 1 [facility] 12.5 mg 7-25 12-05 tablet by [facility] of tablet 00:00: 00:00 mouth in [place] 00 :00 the Medical morning Branch and 1 tablet in the evening. Take with meals. DULoxetine 2021-0 Yes 30mg Take 1 [facility] rs 30 mg 6-03 capsule by [facility] of capsule 00:00: mouth [place] 00 daily. [facility] traZODone 2021-0 Yes 50mg Take 1-2 [facility] ers 50 mg 6-03 tablets by it[facility] of tablet 00:00: mouth at [place] 00 bedtime as Medical needed for Branch Insomnia. DULoxetine 2021-0 Yes 30mg Take 1 [facility] rs 30 mg 6-03 capsule by [facility] of capsule 00:00: mouth [place] 00 daily. [facility] traZODone 2021-0 Yes 50mg Take 1-2 [facility] ers 50 mg 6-03 tablets by [facility] of tablet 00:00: mouth at [place] 00 bedtime as Medical needed for Branch Insomnia. DULoxetine 2021-0 Yes 30mg Take 1 [facility] rs 30 mg 6-03 capsule by [facility] of capsule 00:00: mouth [place] 00 daily. [facility] traZODone 2021-0 Yes 50mg Take 1-2 [facility] ers 50 mg 6-03 tablets by [facility] of tablet 00:00: mouth at [place] 00 bedtime as Medical needed for Branch Insomnia. DULoxetine 2021-0 Yes 30mg Take 1 [facility] rs 30 mg 6-03 capsule by [facility] of capsule 00:00: mouth [place] 00 daily. [facility] traZODone 2021-0 Yes 50mg Take 1-2 [facility] ers 50 mg 6-03 tablets by [facility] of tablet 00:00: mouth at [place] 00 bedtime as Medical needed for Branch [...] by ity of tablet 00:00: mouth at [place] 00 bedtime as Medical needed for Branch Insomnia. DULoxetine 2022-0 Yes 30mg Take 1 [facility] rs 30 mg 6-03 capsule by [facility] of capsule 00:00: mouth 00 daily. [facility] traZODone 2022-0 Yes 50mg Take 1-2 [facility] ers 50 mg 6-03 tablets by [facility] of tablet 00:00: mouth at [place] 00 bedtime as Medical needed for Branch Insomnia. DULoxetine 2022-0 Yes 30mg Take 1 [facility] rs 30 mg 6-03 capsule by [facility] of capsule 00:00: mouth 00 daily. [facility] traZODone 2022-0 Yes 50mg Take 1-2 [facility] ers 50 mg 6-03 tablets by [facility] of tablet 00:00: mouth at [place] 00 bedtime as Medical needed for Branch Insomnia. DULoxetine 2022-0 Yes 30mg Take 1 [facility] rs 30 mg 6-03 capsule by [facility] of capsule 00:00: mouth [place] 00 daily. [facility] traZODone 2022-0 Yes 50mg Take 1-2 [facility] ers 50 mg 6-03 tablets by [facility] of tablet 00:00: mouth at [place] 00 bedtime as Medical needed for Branch Insomnia. DULoxetine 2022-0 Yes 30mg Take 1 [facility] rs 30 mg 6-03 capsule by [facility] of capsule 00:00: mouth [place] 00 daily. [facility] traZODone 2022-0 Yes 50mg Take 1-2 [facility] ers 50 mg 6-03 tablets by [facility] of tablet 00:00: mouth at [place] 00 bedtime as Medical needed for Branch Insomnia. DULoxetine 2022-0 Yes 30mg Take 1 [facility] rs 30 mg 6-03 capsule by [facility] of capsule 00:00: mouth [place] daily. [facility] traZODone 2022-0 Yes 50mg Take 1-2 [facility] ers 50 mg 6-03 tablets by [facility] of tablet 00:00: mouth at [place] 00 bedtime as Medical needed for Branch Insomnia. DULoxetine 2022-0 Yes 30mg Take 1 [facility] rs 30 mg 6-03 capsule by [facility] of capsule 00:00: mouth 00 daily. [facility] traZODone 2022-0 Yes 50mg Take 1-2 [facility] ers 50 mg 6-03 tablets by [facility] of tablet 00:00: mouth at [place] bedtime as Medical needed for Branch Insomnia. DULoxetine 2022-0 Yes 30mg Take 1 [facility] rs 30 mg 6-03 capsule by [facility] of capsule 00:00: mouth daily. [facility] traZODone 2022-0 Yes 50mg Take 1-2 [facility] ers 50 mg 6-03 tablets by [facility] of tablet 00:00: mouth at [place] bedtime as Medical needed for Branch Insomnia. DULoxetine 2022-0 Yes 30mg Take 1 [facility] rs 30 mg 6-03 capsule by [facility] of capsule 00:00: mouth daily. [facility] traZODone 2022-0 Yes 50mg Take 1-2 [facility] ers 50 mg 6-03 tablets by [facility] of tablet 00:00: mouth at [place] bedtime as Medical needed for Branch Insomnia. DULoxetine 2022-0 Yes 30mg Take 1 [facility] rs 30 mg 6-03 capsule by [facility] of capsule 00:00: mouth daily. [facility] traZODone 2022-0 Yes 50mg Take 1-2 [facility] ers 50 mg 6-03 tablets by [facility] of tablet 00:00: mouth at [place] 00 bedtime as Medical needed for Branch [...] by ity of tablet 00:00: mouth at [place] 00 bedtime as Medical needed for Branch [...] by ity of tablet 00:00: mouth at [place] bedtime as Medical needed for Branch Insomnia. DULoxetine 2022-0 Yes 30mg Take 1 [facility] rs 30 mg 6-03 capsule by [facility] of capsule 00:00: mouth daily. [facility] traZODone 2022-0 Yes 50mg Take 1-2 [facility] ers 50 mg 6-03 tablets by [facility] of tablet 00:00: mouth at [place] 00 bedtime as Medical needed for Branch Insomnia. DULoxetine 2022-0 Yes 30mg Take 1 [facility] rs 30 mg 6-03 capsule by [facility] of capsule 00:00: mouth 00 daily. [facility] traZODone 2022-0 Yes 50mg Take 1-2 [facility] ers 50 mg 6-03 tablets by [facility] of tablet 00:00: mouth at [place] 00 bedtime as Medical needed for Branch [...] by ity of tablet 00:00: mouth at [place] 00 bedtime as Medical needed for Branch [...] by ity of tablet 00:00: mouth at [place] 00 bedtime as Medical needed for Branch [...] by ity of tablet 00:00: mouth at [place] 00 bedtime as Medical needed for Branch Insomnia. DULoxetine 2022-0 Yes 30mg Take 1 [facility] rs 30 mg 6-03 capsule by [facility] of capsule 00:00: mouth [place] 00 daily. [facility] traZODone 2022-0 Yes 50mg Take 1-2 [facility] ers 50 mg 6-03 tablets by [facility] of tablet 00:00: mouth at [place] 00 bedtime as Medical needed for Branch [...] by ity of tablet 00:00: mouth at [place] 00 bedtime as Medical needed for Branch Insomnia. DULoxetine 2022-0 Yes 30mg Take 1 [facility] rs 30 mg 6-03 capsule by [facility] of capsule 00:00: mouth daily. [facility] traZODone 2022-0 Yes 50mg Take 1-2 [facility] ers 50 mg 6-03 tablets by [facility] of tablet 00:00: mouth at [place] 00 bedtime as Medical needed for Branch Insomnia. DULoxetine 2022-0 Yes 30mg Take 1 [facility] rs 30 mg 6-03 capsule by [facility] of capsule 00:00: mouth 00 daily. [facility] traZODone 2022-0 Yes 50mg Take 1-2 [facility] ers 50 mg 6-03 tablets by [facility] of tablet 00:00: mouth at [place] 00 bedtime as Medical needed for Branch Insomnia. DULoxetine 2022-0 Yes 30mg Take 1 [facility] rs 30 mg 6-03 capsule by [facility] of capsule 00:00: mouth daily. [facility] traZODone 2022-0 Yes 50mg Take 1-2 [facility] ers 50 mg 6-03 tablets by [facility] of tablet 00:00: mouth at [place] 00 bedtime as Medical needed for Branch [...] by ity of tablet 00:00: mouth at [place] 00 bedtime as Medical needed for Branch [...] 00:00: mouth [place] 00 daily. [facility] DULoxetine 2022-0 Yes 30mg Take 1 [facility] rs 30 mg 6-03 capsule by [facility] of capsule 00:00: mouth [place] 00 daily. [facility] DULoxetine 2022-0 Yes 30mg Take 1 [facility] rs 30 mg 6-03 capsule by [facility] of capsule 00:00: mouth [place] 00 daily. [facility] DULoxetine 2022-0 Yes 30mg Take 1 [facility] rs 30 mg 6-03 capsule by [facility] of capsule 00:00: mouth [place] 00 daily. [facility] DULoxetine 2022-0 Yes 30mg Take 1 [facility] rs 30 mg 6-03 capsule by [facility] of capsule 00:00: mouth [place] 00 daily. [facility] DULoxetine 2022-0 Yes 30mg Take 1 [facility] rs 30 mg 6-03 capsule by [facility] of capsule 00:00: mouth [place] 00 daily. [facility] DULoxetine 2022-0 Yes 30mg Take 1 [facility] rs 30 mg 6-03 capsule by [facility] of capsule 00:00: mouth [place] 00 daily. [facility] DULoxetine 2022-0 Yes 30mg Take 1 [facility] rs 30 mg 6-03 capsule by [facility] of capsule 00:00: mouth [place] 00 daily. [facility] DULoxetine 2022-0 Yes 30mg Take 1 [facility] rs 30 mg 6-03 capsule by [facility] of capsule 00:00: mouth [place] 00 daily. [facility] DULoxetine 2022-0 Yes 30mg Take 1 [facility] rs 30 mg 6-03 capsule by [facility] of capsule 00:00: mouth [place] 00 daily. [facility] DULoxetine 2022-0 Yes 30mg Take 1 [facility] rs 30 mg 6-03 capsule by [facility] of capsule 00:00: mouth [place] 00 daily. [facility] DULoxetine 2022-0 Yes 30mg Take 1 [facility] rs 30 mg 6-03 capsule by [facility] of capsule 00:00: mouth [place] 00 daily. [facility] DULoxetine 2022-0 Yes 30mg Take 1 [facility] rs 30 mg 6-03 capsule by [facility] of capsule 00:00: mouth [place] 00 daily. [facility] DULoxetine 2022-0 Yes 30mg Take 1 [facility] rs 30 mg 6-03 capsule by [facility] of capsule 00:00: mouth [place] 00 daily. [facility] DULoxetine 2022-0 Yes 30mg Take 1 [facility] rs 30 mg 6-03 capsule by [facility] of capsule 00:00: mouth [place] 00 daily. [facility] DULoxetine 2022-0 Yes 30mg Take 1 [facility] rs 30 mg 6-03 capsule by [facility] of capsule 00:00: mouth [place] 00 daily. [facility] DULoxetine 2022-0 Yes 30mg Take 1 [facility] 30 mg 6-03 capsule by [facility] of capsule 00:00: mouth [place] 00 daily. [facility] DULoxetine 2022-0 Yes 30mg Take 1 [facility] rs 30 mg 6-03 capsule by [facility] of capsule 00:00: mouth [place] 00 daily. [facility] DULoxetine 2022-0 Yes 30mg Take 1 [facility] rs 30 mg 6-03 capsule by [facility] of capsule 00:00: mouth [place] 00 daily. [facility] DULoxetine 2022-0 Yes 30mg Take 1 [facility] rs 30 mg 6-03 capsule by [facility] of capsule 00:00: mouth [place] 00 daily. [facility] DULoxetine 2022-0 Yes 30mg Take 1 [facility] rs 30 mg 6-03 capsule by [facility] of capsule 00:00: mouth [place] 00 daily. [facility] DULoxetine 2022-0 Yes 30mg Take 1 [facility] rs 30 mg 6-03 capsule by [facility] of capsule 00:00: mouth [place] 00 daily. [facility] DULoxetine 2022-0 Yes 30mg Take 1 [facility] rs 30 mg 6-03 capsule by [facility] of capsule 00:00: mouth [place] 00 daily. [facility] DULoxetine 2022-0 Yes 30mg Take 1 [facility] rs 30 mg 6-03 capsule by [facility] of capsule 00:00: mouth [place] 00 daily. [facility] DULoxetine 2022-0 Yes 30mg Take 1 [facility] rs 30 mg 6-03 capsule by [facility] of capsule 00:00: mouth [place] 00 daily. [facility] DULoxetine 2022-0 Yes 30mg Take 1 [facility] rs 30 mg 6-03 capsule by [facility] of capsule 00:00: mouth [place] 00 daily. [facility] DULoxetine 2022-0 Yes 30mg Take 1 [facility] rs 30 mg 6-03 capsule by [facility] of capsule 00:00: mouth [place] 00 daily. [facility] DULoxetine 2022-0 Yes 30mg Take 1 [facility] rs 30 mg 6-03 capsule by [facility] of capsule 00:00: mouth [place] 00 daily. [facility] DULoxetine 2022-0 Yes 30mg Take 1 [facility] rs 30 mg 6-03 capsule by [facility] of capsule 00:00: mouth [place] 00 daily. [facility] DULoxetine 2022-0 Yes 30mg Take 1 [facility] rs 30 mg 6-03 capsule by [facility] of capsule 00:00: mouth [place] 00 daily. [facility] DULoxetine 2022-0 Yes 30mg Take 1 [facility] rs 30 mg 6-03 capsule by [facility] of capsule 00:00: mouth [place] 00 daily. [facility] DULoxetine 2022-0 Yes 30mg Take 1 [facility] rs 30 mg 6-03 capsule by [facility] of capsule 00:00: mouth [place] 00 daily. [facility] DULoxetine 2022-0 Yes 30mg Take 1 [facility] rs 30 mg 6-03 capsule by [facility] of capsule 00:00: mouth [place] 00 daily. [facility] DULoxetine 2022-0 Yes 30mg Take 1 [facility] rs 30 mg 6-03 capsule by [facility] of capsule 00:00: mouth [place] 00 daily. [facility] DULoxetine 2022-0 Yes 30mg Take 1 [facility] 30 mg 6-03 capsule by [facility] of capsule 00:00: mouth [place] 00 daily. [facility] DULoxetine 2022-0 Yes 30mg Take 1 [facility] rs 30 mg 6-03 capsule by [facility] of capsule 00:00: mouth [place] 00 daily. [facility] DULoxetine 2022-0 Yes 30mg Take 1 [facility] rs 30 mg 6-03 capsule by [facility] of capsule 00:00: mouth [place] 00 daily. [facility] DULoxetine 2022-0 Yes 30mg Take 1 [facility] rs 30 mg 6-03 capsule by [facility] of capsule 00:00: mouth [place] 00 daily. [facility] DULoxetine 2022-0 Yes 30mg Take 1 [facility] rs 30 mg 6-03 capsule by [facility] of capsule 00:00: mouth [place] 00 daily. [facility] DULoxetine 2022-0 Yes 30mg Take 1 [facility] rs 30 mg 6-03 capsule by [facility] of capsule 00:00: mouth [place] 00 daily. [facility] DULoxetine 2022-0 Yes 30mg Take 1 [facility] rs 30 mg 6-03 capsule by [facility] of capsule 00:00: mouth [place] 00 daily. [facility] DULoxetine 2022-0 Yes 30mg Take 1 [facility] rs 30 mg 6-03 capsule by [facility] of capsule 00:00: mouth [place] 00 daily. [facility] DULoxetine 2022-0 Yes 30mg Take 1 [facility] rs 30 mg 6-03 capsule by [facility] of capsule 00:00: mouth [place] 00 daily. [facility] DULoxetine 2022-0 Yes 30mg Take 1 [facility] rs 30 mg 6-03 capsule by [facility] of capsule 00:00: mouth [place] 00 daily. [facility] DULoxetine 2022-0 Yes 30mg Take 1 [facility] rs 30 mg 6-03 capsule by [facility] of capsule 00:00: mouth [place] 00 daily. [facility] DULoxetine 2022-0 Yes 30mg Take 1 [facility] rs 30 mg 6-03 capsule by [facility] of capsule 00:00: mouth [place] 00 daily. [facility] DULoxetine 2022-0 Yes 30mg Take 1 [facility] rs 30 mg 6-03 capsule by [facility] of capsule 00:00: mouth [place] 00 daily. [facility] DULoxetine 2022-0 Yes 30mg Take 1 [facility] rs 30 mg 6-03 capsule by [facility] of capsule 00:00: mouth [place] 00 daily. [facility] DULoxetine 2022-0 Yes 30mg Take 1 [facility] rs 30 mg 6-03 capsule by [facility] of capsule 00:00: mouth [place] 00 daily. [facility] DULoxetine 2022-0 Yes 30mg Take 1 [facility] rs 30 mg 6-03 capsule by [facility] of capsule 00:00: mouth [place] 00 daily. [facility] DULoxetine 2022-0 Yes 30mg Take 1 [facility] rs 30 mg 6-03 capsule by [facility] of capsule 00:00: mouth [place] 00 daily. [facility] DULoxetine 2022-0 Yes 30mg Take 1 [facility] rs 30 mg 6-03 capsule by [facility] of capsule 00:00: mouth [place] 00 daily. [facility] DULoxetine 2022-0 Yes 30mg Take 1 [facility] rs 30 mg 6-03 capsule by [facility] of capsule 00:00: mouth [place] 00 daily. [facility] DULoxetine 2022-0 Yes 30mg Take 1 [facility] rs 30 mg 6-03 capsule by [facility] of capsule 00:00: mouth [place] 00 daily. [facility] DULoxetine 2022-0 Yes 30mg Take 1 [facility] rs 30 mg 6-03 capsule by [facility] of capsule 00:00: mouth [place] 00 daily. [facility] DULoxetine 2022-0 Yes 30mg Take 1 [facility] rs 30 mg 6-03 capsule by [facility] of capsule 00:00: mouth [place] 00 daily. [facility] DULoxetine 2022-0 Yes 30mg Take 1 [facility] rs 30 mg 6-03 capsule by [facility] of capsule 00:00: mouth [place] 00 daily. [facility] DULoxetine 2022-0 Yes 30mg Take 1 [facility] rs 30 mg 6-03 capsule by [facility] of capsule 00:00: mouth [place] 00 daily. [facility] DULoxetine 2022-0 Yes 30mg Take 1 [facility] rs 30 mg 6-03 capsule by [facility] of capsule 00:00: mouth [place] 00 daily. [facility] DULoxetine 2022-0 Yes 30mg Take 1 [facility] rs 30 mg 6-03 capsule by [facility] of capsule 00:00: mouth [place] 00 daily. [facility] DULoxetine Yes 30mg Take 1 [facility] rs 30 mg 6-03 capsule by [facility] of capsule 00:00: mouth [place] 00 daily. [facility] traZODone 2022- No 50mg Take 1-2 [facility] vers 50 mg 02-25- tablets by [facility] of tablet 00:00: 00:00 mouth at [place] 00 :00 bedtime as Medical needed for Branch Insomnia. traZODone 2022- No 50mg Take 1-2 [facility] vers 50 mg 6-11 23- tablets by [facility] of tablet 00:00: 00:00 mouth at [place] 00 :00 bedtime as Medical needed for Branch Insomnia. traZODone 2022- No 50mg Take 1-2 [facility] vers 50 mg 6-11 23- tablets by [facility] of tablet 00:00: 00:00 mouth at [place] 00 :00 bedtime as Medical needed for Branch Insomnia. traZODone 2022- No 50mg Take 1-2 [facility] vers 50 mg -11 23- tablets by [facility] of tablet 00:00: 00:00 mouth at [place] 00 :00 bedtime as Medical needed for Branch Insomnia. traZODone 2022- No 50mg Take 1-2 [facility] vers 50 mg -11 23- tablets by [facility] of tablet 00:00: 00:00 mouth at [place] 00 :00 bedtime as Medical needed for Branch Insomnia. fluticasone 2021- No [id number] 1{puff} Inhale 1 [facility] furoate-natan 02-25 09-13 Puff ity of anteroL 00:00: 00:00 daily. [place] ([facility] 00 :00 Medical ELLIPTA) Branch 200-25 mcg/dose DsDv fluticasone 2021- No [id number] 1{puff} Inhale 1 [facility] furoate-natan - 09-13 Puff ity of anteroL 00:00: 00:00 daily. [place] ([facility] 00 :00 Medical ELLIPTA) Branch 200-25 mcg/dose DsDv BENZONATATE Yes [id number] TAKE 1 [facility] 100 mg 3-04 CAPSULE BY ity of capsule 00:00: MOUTH [place] 00 THREE Medical TIMES Branch DAILY NEEDED FOR COUGH BENZONATATE 2022-0 Yes [id number] TAKE 1 [facility] 100 mg 3-04 CAPSULE BY ity of capsule 00:00: MOUTH THREE Medical TIMES Branch DAILY NEEDED FOR COUGH BENZONATATE 2022-0 Yes [id number] TAKE 1 [facility] 100 mg 3-04 CAPSULE BY ity of capsule 00:00: MOUTH THREE Medical TIMES Branch DAILY NEEDED FOR COUGH BENZONATATE 2022-0 Yes [id number] TAKE 1 [facility] 100 mg 3-04 CAPSULE BY ity of capsule 00:00: MOUTH THREE Medical TIMES Branch DAILY NEEDED FOR COUGH BENZONATATE 2022-0 Yes [id number] TAKE 1 [facility] 100 mg 3-04 CAPSULE BY ity of capsule 00:00: MOUTH THREE Medical TIMES Branch DAILY NEEDED FOR COUGH BENZONATATE 2-0 Yes [id number] TAKE 1 [facility] 100 mg 3-04 CAPSULE BY ity of capsule 00:00: MOUTH THREE Medical TIMES Branch DAILY NEEDED FOR COUGH BENZONATATE 2022-0 Yes [id number] TAKE 1 [facility] 100 mg 3-04 CAPSULE BY ity of capsule 00:00: MOUTH THREE Medical TIMES Branch DAILY NEEDED FOR COUGH BENZONATATE 2-0 Yes [id number] TAKE 1 [facility] 100 mg 3-04 CAPSULE BY ity of capsule 00:00: MOUTH THREE Medical TIMES Branch DAILY NEEDED FOR COUGH BENZONATATE 2022-0 Yes [id number] TAKE 1 [facility] 100 mg 3-04 CAPSULE BY ity of capsule 00:00: MOUTH THREE Medical TIMES Branch DAILY NEEDED FOR COUGH BENZONATATE 2022-0 Yes [id number] TAKE 1 [facility] 100 mg 3-04 CAPSULE BY ity of capsule 00:00: MOUTH THREE Medical TIMES Branch DAILY NEEDED FOR COUGH BENZONATATE 2-0 Yes [id number] TAKE 1 [facility] 100 mg 3-04 CAPSULE BY ity of capsule 00:00: MOUTH THREE Medical TIMES Branch DAILY NEEDED FOR COUGH BENZONATATE 2-0 Yes [id number] TAKE 1 [facility] 100 mg 3-04 CAPSULE BY ity of capsule 00:00: MOUTH THREE Medical TIMES Branch DAILY NEEDED FOR COUGH BENZONATATE 2022-0 2021- No [id number] TAKE 1 [facility] 100 mg 3-04 10-11 CAPSULE BY ity of capsule 00:00: 00:00 MOUTH [place] 00 :00 THREE Medical TIMES Branch DAILY NEEDED FOR COUGH BENZONATATE 0 2021- No [id number] TAKE 1 [facility] 100 mg 3-04 10-11 CAPSULE BY ity of capsule 00:00: 00:00 MOUTH [place] 00 :00 THREE Medical TIMES Branch DAILY NEEDED FOR COUGH BENZONATATE 0 2021- No [id number] TAKE 1 [facility] 100 mg 3-04 10-11 [...] ity of mg) tablet 00:00: mouth [place] daily. Medical Branch furosemide 2020-09 Yes 20mg [...] ity of mg) tablet 00:00: mouth [place] daily. [facility] furosemide 2020-09 Yes 20mg Take 1 [facility] rs 20 mg 2-07 tablet by ity of tablet 00:00: mouth as [place] 00 needed. Medical Branch digoxin 125 2020-09 Yes 125ug Take 1 [facility] vers mcg (0.125 2-07 tablet by ity of mg) tablet 00:00: mouth [place] daily. [facility] Branch furosemide 2020-09 Yes 20mg Take 1 [facility] rs 20 mg 2-07 tablet by ity of tablet 00:00: mouth as [place] 00 needed. Medical Branch digoxin 125 2020-09 Yes 125ug Take 1 [facility] vers mcg (0.125 2-07 tablet by ity of mg) tablet 00:00: mouth daily. [facility] furosemide 2020-09 Yes 20mg Take 1 [facility] rs 20 mg 2-07 tablet by ity of tablet 00:00: mouth as [place] 00 needed. Medical Branch digoxin 125 2020-09 Yes 125ug Take 1 [facility] vers mcg (0.125 2-07 tablet by ity of mg) tablet 00:00: mouth daily. Medical Branch furosemide 2020-09 Yes 20mg Take 20 mg U nivers 20 mg 2-07 by mouth ity of tablet 00:00: in [place] morning. Medical Branch digoxin 125 2020-09 Yes 125ug Take 1 [facility] vers mcg (0.125 2-07 tablet by ity of mg) tablet 00:00: mouth daily. Medical Branch furosemide 2020-09 Yes 20mg Take 20 mg U nivers 20 mg 2-07 by mouth ity of tablet 00:00: in the morning. [facility] digoxin 125 2020-09 Yes 125ug Take 1 [facility] mcg (0.125 2-07 tablet by ity of mg) tablet 00:00: mouth [place] daily. [facility] furosemide 2020-09 Yes 20mg Take 20 mg U nivers 20 mg 2-07 by mouth ity of tablet 00:00: in the morning. Medical [facility] digoxin 125 2020-09 Yes 125ug Take 1 [facility] mcg (0.125 2-07 tablet by ity of mg) tablet 00:00: mouth [place] 00 daily. [facility] furosemide 2020-09 Yes 20mg Take 20 mg U nivers 20 mg 2-07 by mouth ity of tablet 00:00: in the [place] morning. [facility] digoxin 125 2020-09 Yes 125ug Take 1 [facility] mcg (0.125 2-07 tablet by ity of mg) tablet 00:00: mouth [place] 00 daily. [facility] furosemide 2020-09 Yes 20mg Take 20 mg U n[facility] 20 mg 2-07 by mouth ity of tablet 00:00: in the [place] morning. [facility] digoxin 125 2020-09 Yes 125ug Take 1 [facility] mcg (0.125 2-07 tablet by ity of mg) tablet 00:00: mouth [place] daily. [facility] furosemide 2020-09 Yes 20mg Take 20 mg [facility] 20 mg 2-07 by mouth ity of tablet 00:00: in the [place] morning. [facility] digoxin 125 2020-09 Yes 125ug Take 1 [facility] mcg (0.125 2-07 tablet by ity of mg) tablet 00:00: mouth [place] daily. [facility] furosemide 2020-09 Yes 20mg Take 20 mg [facility] 20 mg 2-07 by mouth ity of tablet 00:00: in the [place] morning. [facility] digoxin 125 2020-09 Yes 125ug Take 1 [facility] mcg (0.125 2-07 tablet by ity of mg) tablet 00:00: mouth [place] daily. [facility] furosemide 2020-09 Yes 20mg Take 20 mg [facility] 20 mg 2-07 by mouth ity of tablet 00:00: in the [place] morning. [facility] digoxin 125 2020-09 Yes 125ug Take 1 [facility] mcg (0.125 2-07 tablet by ity of mg) tablet 00:00: mouth [place] daily. [facility] furosemide 2020-09 Yes 20mg Take 20 mg [facility] 20 mg 2-07 by mouth ity of tablet 00:00: in the [place] morning. [facility] digoxin 125 2020-09 Yes 125ug Take 1 [facility] mcg (0.125 2-07 tablet by ity of mg) tablet 00:00: mouth [place] daily. [facility] furosemide 2020-09 Yes 20mg Take 20 mg [facility] 20 mg 2-07 by mouth ity of tablet 00:00: in the [place] morning. [facility] digoxin 125 2020-09 Yes 125ug Take 1 [facility] mcg (0.125 2-07 tablet by ity of mg) tablet 00:00: mouth [place] daily. [facility] furosemide 2020-09 Yes 20mg Take 20 mg [facility] 20 mg 2-07 by mouth ity of tablet 00:00: in the [place] morning. [facility] digoxin 125 2020-09 Yes 125ug Take 1 [facility] mcg (0.125 2-07 tablet by ity of mg) tablet 00:00: mouth [place] daily. [facility] furosemide 2020-09 Yes 20mg Take 20 mg [facility] 20 mg 2-07 by mouth ity of tablet 00:00: in the [place] morning. [facility] digoxin 125 2020-09 Yes 125ug Take 1 [facility] mcg (0.125 2-07 tablet by ity of mg) tablet 00:00: mouth [place] daily. [facility] furosemide 2020-09 Yes 20mg Take 20 mg [facility] 20 mg 2-07 by mouth ity of tablet 00:00: in the [place] morning. [facility] digoxin 125 2020-09 Yes 125ug Take 1 [facility] mcg (0.125 2-07 tablet by ity of mg) tablet 00:00: mouth [place] daily. [facility] furosemide 2020-09 Yes 20mg Take 20 mg [facility] 20 mg 2-07 by mouth ity of tablet 00:00: in the [place] morning. [facility] digoxin 125 2020-09 Yes 125ug Take 1 [facility] mcg (0.125 2-07 tablet by ity of mg) tablet 00:00: mouth [place] daily. [facility] furosemide 2020-09 Yes 20mg Take 20 mg [facility] 20 mg 2-07 by mouth ity of tablet 00:00: in the [place] morning. [facility] digoxin 125 2020-09 Yes 125ug Take 1 [facility] mcg (0.125 2-07 tablet by ity of mg) tablet 00:00: mouth [place] daily. [facility] furosemide 2020-09 Yes 20mg Take 20 mg [facility] 20 mg 2-07 by mouth ity of tablet 00:00: in the [place] morning. [facility] digoxin 125 2020-09 Yes 125ug Take 1 [facility] mcg (0.125 2-07 tablet by ity of mg) tablet 00:00: mouth [place] 00 daily. [facility] furosemide 2020-09 Yes 20mg Take 20 mg [facility] 20 mg 2-07 by mouth ity of tablet 00:00: in the [place] morning. [facility] digoxin 125 2020-09 Yes 125ug Take 1 [facility] mcg (0.125 2-07 tablet by ity of mg) tablet 00:00: mouth [place] daily. [facility] furosemide 2020-09 Yes 20mg Take 20 mg [facility] 20 mg 2-07 by mouth ity of tablet 00:00: in the [place] morning. [facility] digoxin 125 2020-09 Yes 125ug Take 1 [facility] mcg (0.125 2-07 tablet by ity of mg) tablet 00:00: mouth [place] daily. [facility] furosemide 2020-09 Yes 20mg Take 20 mg [facility] 20 mg 2-07 by mouth ity of tablet 00:00: in the [place] morning. [facility] digoxin 125 2020-09 Yes 125ug Take 1 [facility] mcg (0.125 2-07 tablet by ity of mg) tablet 00:00: mouth [place] daily. [facility] furosemide 2020-09 Yes 20mg Take 20 mg [facility] 20 mg 2-07 by mouth ity of tablet 00:00: in the [place] morning. [facility] digoxin 125 2020-09 Yes 125ug Take 1 [facility] mcg (0.125 2-07 tablet by ity of mg) tablet 00:00: mouth [place] daily. [facility] furosemide 2020-09 Yes 20mg Take 20 mg [facility] 20 mg 2-07 by mouth ity of tablet 00:00: in the [place] morning. [facility] digoxin 125 2020-09 Yes 125ug Take 1 [facility] mcg (0.125 2-07 tablet by ity of mg) tablet 00:00: mouth [place] daily. [facility] furosemide 2020-09 Yes 20mg Take 20 mg [facility] n[facility] 20 mg 2-07 by mouth ity of tablet 00:00: in the [place] morning. [facility] digoxin 125 2020-09 Yes 125ug Take 1 [facility] mcg (0.125 2-07 tablet by ity of mg) tablet 00:00: mouth [place] daily. [facility] furosemide 2020-09 Yes 20mg Take 20 mg [facility] 20 mg 2-07 by mouth ity of tablet 00:00: in the [place] morning. [facility] digoxin 125 2020-09 Yes 125ug Take 1 [facility] vers mcg (0.125 2-07 tablet by ity of mg) tablet 00:00: mouth [place] daily. [facility] furosemide 2020-09 Yes 20mg Take 20 mg [facility] 20 mg 2-07 by mouth ity of tablet 00:00: in the [place] morning. [facility] digoxin 125 2020-09 Yes 125ug Take 1 [facility] mcg (0.125 2-07 tablet by ity of mg) tablet 00:00: mouth [place] daily. [facility] furosemide 2020-09 Yes 20mg Take 20 mg [facility] 20 mg 2-07 by mouth ity of tablet 00:00: in the [place] morning. [facility] digoxin 125 2020-09 Yes 125ug Take 1 [facility] mcg (0.125 2-07 tablet by ity of mg) tablet 00:00: mouth [place] daily. [facility] furosemide 2020-09 Yes 20mg Take 20 mg [facility] 20 mg 2-07 by mouth ity of tablet 00:00: in the [place] morning. [facility] digoxin 125 2020-09 Yes 125ug Take 1 [facility] mcg (0.125 2-07 tablet by ity of mg) tablet 00:00: mouth [place] daily. [facility] furosemide 2020-09 Yes 20mg Take 20 mg [facility] n[facility] 20 mg 2-07 by mouth ity of tablet 00:00: in the [place] morning. [facility] digoxin 125 2020-09 Yes 125ug Take 1 [facility] mcg (0.125 2-07 tablet by ity of mg) tablet 00:00: mouth [place] daily. [facility] furosemide 2020-09 Yes 20mg Take 20 mg [facility] 20 mg 2-07 by mouth ity of tablet 00:00: in the [place] morning. [facility] digoxin 125 2020-09 Yes 125ug Take 1 [facility] mcg (0.125 2-07 tablet by ity of mg) tablet 00:00: mouth [place] daily. [facility] furosemide 2020-09 Yes 20mg Take 20 mg [facility] 20 mg 2-07 by mouth ity of tablet 00:00: in the [place] morning. [facility] digoxin 125 2020-09 Yes 125ug Take 1 [facility] mcg (0.125 2-07 tablet by ity of mg) tablet 00:00: mouth [place] 00 daily. [facility] Branch furosemide 2020-09 Yes 20mg Take 20 mg U n[facility] 20 mg 2-07 by mouth ity of tablet 00:00: in the [place] morning. [facility] digoxin 125 2020-09 Yes 125ug Take 1 [facility] mcg (0.125 2-07 tablet by ity of mg) tablet 00:00: mouth [place] 00 daily. [facility] Branch furosemide 2020-09 Yes 20mg Take 20 mg U nivers 20 mg 2-07 by mouth ity of tablet 00:00: in the [place] morning. [facility] digoxin 125 2020-09 Yes 125ug Take 1 [facility] vers mcg (0.125 2-07 tablet by ity of mg) tablet 00:00: mouth in [facility] as 00 the Medical morning. Branch furosemide 2020-09 Yes 20mg Take 1 Un[facility] rs 20 mg 2-07 tablet by ity of tablet 00:00: mouth in [place] 00 the Medical morning. Branch digoxin 125 2020-09 Yes 125ug Take 1 [facility] vers mcg (0.125 2-07 tablet by ity of mg) tablet 00:00: mouth in [facility] as 00 the Medical morning. Branch furosemide 2020-09 Yes 20mg Take 1 Un[facility] rs 20 mg 2-07 tablet by ity of tablet 00:00: mouth in [place] 00 the Medical morning. Branch digoxin 125 2020-09 Yes 125ug Take 1 [facility] vers mcg (0.125 2-07 tablet by ity of mg) tablet 00:00: mouth in [facility] as 00 the Medical morning. Branch furosemide 2020-09 Yes 20mg Take 1 Un[facility] rs 20 mg 2-07 tablet by ity of tablet 00:00: mouth in [place] 00 the Medical morning. Branch digoxin 125 2020-09 Yes 125ug Take 1 [facility] vers mcg (0.125 2-07 tablet by ity of mg) tablet 00:00: mouth in [facility] as 00 the Medical morning. Branch furosemide 2020-09 Yes 20mg Take 1 Un[facility] rs 20 mg 2-07 tablet by ity of tablet 00:00: mouth in [place] 00 the Medical morning. Branch digoxin 125 2020-09 Yes 125ug Take 1 [facility] vers mcg (0.125 2-07 tablet by ity of mg) tablet 00:00: mouth in [facility] as 00 the Medical morning. Branch furosemide 2020- Yes 20mg Take 1 Un[facility] rs 20 mg 2-07 tablet by ity of tablet 00:00: mouth in [place] 00 the Medical morning. Branch digoxin 125 2020-09 Yes 125ug Take 1 [facility] vers mcg (0.125 2-07 tablet by ity of mg) tablet 00:00: mouth in [facility] as 00 the Medical morning. Branch furosemide 2020- Yes 20mg Take 1 Unive rs 20 mg 2-07 tablet by ity of tablet 00:00: mouth in [place] 00 the Medical morning. Branch digoxin 125 2020-09 Yes 125ug Take 1 [facility] vers mcg (0.125 2-07 tablet by ity of mg) tablet 00:00: mouth in [facility] as 00 the Medical morning. Branch furosemide 2020- Yes 20mg Take 1 Unive rs 20 mg 2-07 tablet by ity of tablet 00:00: mouth in [place] 00 the Medical morning. Branch digoxin 125 2020-09 Yes 125ug Take 1 [facility] vers mcg (0.125 2-07 tablet by ity of mg) tablet 00:00: mouth in [facility] as 00 the Medical morning. Branch furosemide 2020- Yes 20mg Take 1 Unive rs 20 mg 2-07 tablet by ity of tablet 00:00: mouth in [place] 00 the Medical morning. Branch digoxin 125 2020-09 Yes 125ug Take 1 [facility] vers mcg (0.125 2-07 tablet by ity of mg) tablet 00:00: mouth in [facility] as 00 the Medical morning. Branch furosemide 2020- Yes 20mg Take 1 Unive rs 20 mg 2-07 tablet by ity of tablet 00:00: mouth in [place] 00 the Medical morning. Branch digoxin 125 2020-09 Yes 125ug Take 1 [facility] vers mcg (0.125 2-07 tablet by ity of mg) tablet 00:00: mouth in [facility] as 00 the Medical morning. Branch furosemide 2020- Yes 20mg Take 1 Unive rs 20 mg 2-07 tablet by ity of tablet 00:00: mouth in [place] 00 the Medical morning. Branch digoxin 125 2020-09 Yes 125ug Take 1 [facility] vers mcg (0.125 2-07 tablet by ity of mg) tablet 00:00: mouth in [facility] as 00 the Medical morning. Branch furosemide 2020-09 Yes 20mg Take 1 Unive rs 20 mg 2-07 tablet by ity of tablet 00:00: mouth in [place] 00 the Medical morning. Branch digoxin 125 2020-09 Yes 125ug Take 1 [facility] vers mcg (0.125 2-07 tablet by ity of mg) tablet 00:00: mouth in [facility] as 00 the Medical morning. Branch furosemide 2020-09 Yes 20mg Take 1 Unive rs 20 mg 2-07 tablet by ity of tablet 00:00: mouth in [place] 00 the Medical morning. Branch digoxin 125 2020-09 Yes 125ug Take 1 [facility] vers mcg (0.125 2-07 tablet by ity of mg) tablet 00:00: mouth in [facility] as 00 the Medical morning. Branch furosemide 2020-09 Yes 20mg Take 1 Un[facility] rs 20 mg 2-07 tablet by ity of tablet 00:00: mouth in [place] 00 the Medical morning. Branch digoxin 125 2020-09 Yes 125ug Take 1 [facility] vers mcg (0.125 2-07 tablet by ity of mg) tablet 00:00: mouth in [facility] as 00 the Medical morning. Branch furosemide 2020-09 Yes 20mg Take 1 Unive rs 20 mg 2-07 tablet by ity of tablet 00:00: mouth in [place] the Medical morning. Branch digoxin 125 2020-09 Yes 125ug Take 1 [facility] vers mcg (0.125 2-07 tablet by ity of mg) tablet 00:00: mouth in [facility] as 00 the Medical morning. Branch furosemide 2020-09 Yes 20mg Take 1 Unive rs 20 mg 2-07 tablet by ity of tablet 00:00: mouth in [place] 00 the Medical morning. Branch furosemide 2020- Yes 20mg Take 1 Unive rs 20 mg 2-07 tablet by ity of tablet 00:00: mouth in [place] 00 the Medical morning. Branch furosemide 2020- Yes 20mg Take 1 Unive rs 20 mg 2-07 tablet by ity of tablet 00:00: mouth in [place] 00 the Medical morning. Branch furosemide 2020- Yes 20mg Take 1 Unive rs 20 mg 2-07 tablet by ity of tablet 00:00: mouth in [place] 00 the Medical morning. Branch furosemide 2020- Yes 20mg Take 1 Unive rs 20 mg 2-07 tablet by ity of tablet 00:00: mouth in [place] 00 the Medical morning. Branch furosemide 2020-09 Yes 20mg Take 1 Unive rs 20 mg 2-07 tablet by ity of tablet 00:00: mouth in [place] 00 the Medical morning. Branch digoxin 125 2020-09- No 125ug Take 1 Un [place] mcg (0.125 2-07 04-27 tablet by ity of mg) tablet 00:00: 00:00 mouth in [place] 00 :00 the Medical morning. Branch digoxin 125 2020-09- No 125ug Take 1 [facility] [place] mcg (0.125 2-07 04-27 tablet by ity of mg) tablet 00:00: 00:00 mouth in [place] 00 :00 the Medical morning. Branch albuterol 2020-09 Yes [id number] 2{puff} Inhale 2 [facility] 90 1-05 Puffs ity of mcg/actuati 00:00: every 6 [place] as on inhaler 00 (six) Medical hours as Branch needed for Wheezing or Shortness of Breath. albuterol 2020-09 Yes [id number] 2{puff} Inhale 2 [facility] 90 1-05 Puffs ity of mcg/actuati 00:00: every 6 [place] as on inhaler 00 (six) Medical hours as Branch needed for Wheezing or Shortness of Breath. albuterol 2020-09 Yes [id number] 2{puff} Inhale 2 [facility] 90 1-05 Puffs ity of mcg/actuati 00:00: every 6 [place] as on inhaler 00 (six) Medical hours as Branch needed for Wheezing or Shortness of Breath. albuterol 2020-09- No [id number] 2{puff} Inhale 2 [facility] 90 1-05 09-22 [...] daily. Indication s: Recurrent DVT apixaban 2021-0 2023- No 5mg Take 1 Univer s (ELIQUIS) 5 7-14 04-27 tablet by it y of mg tablet 00:00: 00:[place] :[place] (two) Medical times Branch daily. Indication s: Recurrent DVT apixaban 2021-0 2023- No 5mg Take 1 Univer s (ELIQUIS) 5 7-14 04-27 tablet by it y of mg tablet 00:00: 00:00 mouth [place] 00 :00 (two) Medical times Branch daily. Indication s: [...] day. l ophthalmic emulsion albuterol Yes 1{ampul Q.[id number] Take 1 [facility] (ACCUNEB) 6-24 e} [id number] ampule by st 1.25 mg/3 22:52: 3D [...] % 44 day. l ophthalmic emulsion albuterol 2021-0 Yes 1{ampul Q.56686483 Take 1 [facility] (ACCUNEB) 6-24 e} [id number] ampule by st 1.25 mg/3 17:52: 3D [...] day. l ophthalmic emulsion albuterol Yes 1{ampul Q.27999188 Take 1 [facility] (ACCUNEB) 6-24 e} [id number] ampule by st 1.25 mg/3 17:52: 3D [...] mouth [facility] 44 daily. l ALPRAZolam 2021-0 Yes .25mg QD Take 0.25 M ethodi [...] 17:52: daily. [facility] 44 l cycloSPORIN 2020-0 Yes 1[drp] Q.5D 1 drop 2 [facility] E 6-24 (two) st (RESTASIS) 17:52: times a [facility] 0.05 % 44 day. l ophthalmic emulsion albuterol 2020-0 Yes 1{ampul Q.15982997 Take 1 [facility] (ACCUNEB) 6-24 e} [id number] ampule by st 1.25 mg/3 17:52: 3D [...] times a l day with meals. venlafaxine 2020-0 Yes 150mg QD Take 150 M ethodi [...] day. l ophthalmic emulsion albuterol Yes 1{ampul Q.04363408 Take 1 [facility] (ACCUNEB) 6-24 e} [id number] ampule by st 1.25 mg/3 17:52: 3D [...] day. l ophthalmic emulsion albuterol Yes 1{ampul Q.81489617 Take 1 [facility] (ACCUNEB) 6-24 e} [id number] ampule by st 1.25 mg/3 17:52: 3D nebulizati Ho [facility] mL 44 on 3 l nebulizer (three) solution times a day. ARIPiprazol 2020- No 5mg QD Take 5 mg [facility] (ABILIFY) 6-24 -[address] 5 MG tablet 01:39: [...] 0 Yes QD Inhale 1 [facility] furoate-naatn 6-[address] anteroL 00:00: s daily. [...] blister with device powder for inhalation albuterol 2020-0 Yes 2{puff} Q4H Inhale 2 M [facility]i (PROAIR 6-[address] HFA) 90 00:00: every 4 [facility]osp[facility] mcg/actuati 00 (four) l on inhaler hours as needed for wheezing. fluticasone 2020-0 Yes QD Inhale 1 [facility] furoate-natan 6-[address] anteroL 00:00: s daily. [facility] (Breo 00 l Ellipta) 200-25 mcg/dose blister with device powder for inhalation albuterol 2020-0 Yes 2{puff} Q4H Inhale 2 M ethodi (PROAIR 6-[address] HFA) 90 00:00: every 4 [facility]osp[facility] mcg/actuati 00 (four) l on inhaler hours as needed for wheezing. fluticasone 2020-0 Yes QD Inhale 1 [facility] furoate-natan 6-[address] anteroL 00:00: s daily. Hospit [facility] (Breo 00 l Ellipta) 200-25 mcg/dose blister with device powder for inhalation albuterol 2020-0 Yes 2{puff} Q4H Inhale 2 M ethodi [...] days. methylPREDN No follow Met hodi ISolone 03-18 06-30 [...] 10 mg 14:04: daily. Medical tablet 46 [place] pregabalin Yes 50mg QD Take [address] (LYRICA) 25 5-21 by mouth [facility] MG capsule 14:04: nightly . [place] [facility] 46 [place] esomeprazol Yes 40mg QD Take 40 mg [...] tablet 14:04: nightly. [facility] 46 [place] carvediloL Yes 25mg Take [address] (COREG) 25 5-21 by mouth 2 Berta es MG tablet 14:04: (two) Medical 46 times Center daily with breakfast and dinner. cariprazine Yes 1.5mg QD Take 1.[address] (Vraylar) 5-21 mg by [facility].5 mg Cap 14:04: mouth Medica l 46 nightly. [place] ALPRAZolam Yes .25mg Take 0.25 C HI [...] MG 14:04: mouth Medical tablet 46 daily. [place] venlafaxine Yes 150mg QD Take [address] (EFFEXOR-XR 5-21 mg by [facility] ) 150 MG 24 14:04: mouth Medic al hr capsule 46 daily. [place] apixaban Yes 5mg QD Take 5 mg [...] 10 mg 14:04: daily. Medical tablet 46 [place] pregabalin Yes 50mg QD Take 50 mg [...] Cap 14:04: mouth Medica l 46 nightly. [place] ALPRAZolam Yes .25mg Take 0.25 C HI [...] MG 14:04: mouth Medical tablet 46 daily. [place] venlafaxine Yes 150mg QD Take [address] (EFFEXOR-XR 5-21 mg [facility] ) 150 MG 24 14:04: mouth Medic al hr capsule 46 daily. [place] apixaban Yes 5mg QD Take [address] [facility] (ELIQUIS) 5 5-21 by mouth Luke s mg Tab 14:04: daily. Medical tablet 46 [place] levETIRAcet Yes 1000mg Q.5D Take 1,[address] [facility] am (KEPPRA) 5-21 mg by [facility] 1000 MG 14:04: mouth 2 Medical tablet 46 (two) Center times daily. loratadine Yes 10mg QD Take [address] (CLARITIN) 5-21 by mouth [facility] 10 mg 14:04: daily. Medical tablet 46 [place] pregabalin Yes 50mg QD Take 50 mg [...] Cap 14:04: mouth Medica l 46 nightly. [place] ALPRAZolam Yes .25mg Take 0.25 C HI [...] MG 14:04: mouth Medical tablet 46 daily. [place] venlafaxine Yes 150mg QD Take [address] (EFFEXOR-XR 5-21 mg [facility] ) 150 MG 24 14:04: mouth Medic al hr capsule 46 daily. [place] apixaban Yes 5mg QD Take 5 mg [...] 14:04: daily. Medical tablet 46 [facility] pregabalin 2021-0 Yes 50mg QD Take [address] (LYRICA) 25 5-21 by mouth Luke s MG capsule 14:04: nightly . [place] dical [...] Cap 14:04: mouth Medica l 46 nightly. [place] ALPRAZolam Yes .25mg Take 0.25 C HI [...] MG 14:04: mouth Medical tablet 46 daily. [place] venlafaxine Yes 150mg QD Take [address] (EFFEXOR-XR 5-21 mg [facility] ) 150 MG 24 14:04: mouth Medic al hr capsule 46 daily. [place] apixaban Yes 5mg QD Take 5 mg [...] Luke s MG capsule 14:04: nightly . [place] dical [...] Cap 14:04: mouth Medica l 46 nightly. [place] ALPRAZolam Yes .25mg Take 0.25 C HI [...] MG 14:04: mouth Medical tablet 46 daily. [place] venlafaxine Yes 150mg QD Take [address] (EFFEXOR-XR 5-21 mg [facility] ) 150 MG 24 14:04: mouth Medic al hr capsule 46 daily. [place] apixaban Yes 5mg QD Take 5 mg [...] 10 mg 14:04: daily. Medical tablet 46 [place] pregabalin Yes 50mg QD Take [address] (LYRICA) 25 5-21 by mouth Luke s MG capsule 14:04: nightly . [place] dical [...] (ACCUNEB) - 05-21 e} ampule by Alberto s 1.25 [...] St (SPIRIVA) -21 05-21 mcg by [facility] 18 mcg 11:39: [...] 2mg Take [address] [facility] (COGENTIN) 02-10 by mouth 3 Jeanie kes 2 MG tablet 22:18: 00:00 (three) Me dical 40 :00 times Center daily as needed. benztropine No 1mg Take [address] [facility] (COGENTIN) 02-10 by mouth Luke s 1 MG tablet 22:18: 00:00 daily as M edical 31 :00 needed. [place] ARIPiprazol No 5mg QD Take [address] [facility] e (ABILIFY) 02-10 by mouth Berta es 5 MG tablet 22:18: 00:00 nightly. M edical 03 :00 [place] ARIPiprazol No 10mg QD Take [address] [facility] e (ABILIFY) 02-10 by mouth Berta es 10 MG 22:17: 00:00 daily. Medical disintegrat 48 :00 Center ing tablet Immunizations Ordered Filled Immunization Date Status Comments [facility] e Immunization Name Name SARS-COV-2 COVID-19 2021-02-08 Completed Unive rsity of MODERNA 12+ YRS 00:00:00 [place] Med ical VACCINE Branch SARS-COV-2 COVID-19 2021-02-08 Completed Unive rsity of MODERNA 12+ YRS 00:00:00 [place] Med ical VACCINE Branch SARS-COV-2 COVID-19 2021-02-08 Completed Unive rsity of MODERNA 12+ YRS 00:00:00 [place] Med ical VACCINE Branch SARS-COV-2 COVID-19 2021-02-08 Completed Unive rsity of MODERNA 12+ YRS 00:00:00 [place] Med ical VACCINE Branch SARS-COV-2 COVID-19 2021-02-08 Completed Unive rsity of MODERNA 12+ YRS 00:00:00 [place] Med ical VACCINE Branch SARS-COV-2 COVID-19 2021-02-08 Completed Unive rsity of MODERNA 12+ YRS 00:00:00 [place] Med ical VACCINE Branch SARS-COV-2 COVID-19 2021-02-08 [...] Unive rsity of MODERNA 12+ YRS 00:00:00 [facility] VACCINE Branch SARS-COV-2 COVID-19 2021-01-11 Completed Unive rsity of MODERNA 12+ YRS 00:00:00 [facility] VACCINE Branch Influenza Virus 2020-08-13 Completed Universit y of Vaccine 00:00:00 [facility] Influenza Virus 2020-08-13 Completed Universit y of Vaccine 00:00:00 [facility] Influenza Virus 2020-08-13 Completed Universit y of Vaccine 00:00:00 [facility] Influenza Virus 2020-08-13 Completed Universit y of Vaccine 00:00:00 [facility] Influenza Virus 2020-08-13 Completed Universit y of Vaccine 00:00:00 [facility] Influenza Virus 2020-08-13 Completed Universit y of Vaccine 00:00:00 [facility] Influenza Virus 2020-08-13 Completed Universit y of Vaccine 00:00:00 [facility] Influenza Virus 2020-08-13 Completed Universit y of Vaccine 00:00:00 [facility] Influenza Virus 2020-08-13 Completed Universit y of Vaccine 00:00:00 [facility] Influenza Virus 2020-08-13 Completed Universit y of Vaccine 00:00:00 [facility] Influenza Virus 2020-08-13 Completed Universit y of Vaccine 00:00:00 [facility] Influenza Virus 2020-08-13 Completed Universit y of Vaccine 00:00:00 [facility] Influenza Virus 2020-08-13 Completed Universit y of Vaccine 00:00:00 [facility] Influenza Virus 2020-08-13 Completed Universit y of Vaccine 00:00:00 [facility] Influenza Virus 2020-08-13 Completed Universit y of Vaccine 00:00:00 [facility] Influenza Virus 2020-08-13 Completed Universit y of Vaccine 00:00:00 [facility] Influenza Virus 2020-08-13 Completed Universit y of Vaccine 00:00:00 [facility] Influenza Virus 2020-08-13 Completed Universit y of Vaccine 00:00:00 [facility] Influenza Virus 2020-08-13 Completed Universit y of Vaccine 00:00:00 [facility] Influenza Virus 2020-08-13 Completed Universit y of Vaccine 00:00:00 [facility] Influenza Virus 2020-08-13 Completed Universit y of Vaccine 00:00:00 [facility] Influenza Virus 2020-08-13 Completed Universit y of Vaccine 00:00:00 [facility] Influenza Virus 2020-08-13 Completed Universit y of Vaccine 00:00:00 [facility] Influenza Virus 2020-08-13 Completed Universit y of Vaccine 00:00:00 [facility] Influenza Virus 2020-08-13 Completed Universit y of Vaccine 00:00:00 [facility] Influenza Virus 2020-08-13 Completed Universit y of Vaccine 00:00:00 [facility] Influenza Virus 2020-08-13 Completed Universit y of Vaccine 00:00:00 [facility] Influenza Virus 2020-08-13 Completed [facility]ine 00:00:00 [facility] Influenza Virus 2020-08-13 Completed [facility] Vaccine 00[facility]00:00 [facility] Influenza Virus 2020-08-13 Completed [facility] Vaccine 00:00:00 [facility] Influenza Virus 2020-08-13 Completed [facility] Vaccine 00:00:00 [facility] Influenza Virus 2020-08-13 Completed [facility] Vaccine 00:00:00 [facility] Influenza Virus 2020-08-13 Completed [facility] Vaccine 00:00:00 [facility] Influenza Virus 2020-08-13 Completed [facility] Vaccine 00:00:00 [facility] Influenza Virus 2020-08-13 Completed [facility] Vaccine 00:00:00 [facility] Influenza Virus 2020-08-13 Completed [facility] Vaccine 00:00:00 [facility] Influenza Virus 2020-08-13 Completed [facility] Vaccine 00:00:00 [facility] Influenza Virus 2020-08-13 Completed [facility] Vaccine 00:00:00 [facility] Influenza Virus 2020-08-13 Completed [facility] Vaccine 00:00:00 [facility] Influenza Virus 2020-08-13 Completed [facility] Vaccine 00:00:00 [facility] Influenza Virus 2020-08-13 Completed [facility] Vaccine 00:00:00 [facility] Influenza Virus 2020-08-13 Completed [facility] Vaccine 00:00:00 [facility] Influenza Virus 2020-08-13 Completed [facility] Vaccine 00:00:00 [facility] Influenza Virus 2020-08-13 Completed [facility] Vaccine 00:00:00 [facility] Influenza Virus 2020-08-13 Completed [facility] Vaccine 00:00:00 [facility] Influenza Virus 2020-08-13 Completed [facility] Vaccine 00:00:00 [facility] Influenza Virus 2020-08-13 Completed [facility] Vaccine 00:00:00 [facility] Influenza Virus 2020-08-13 Completed [facility] Vaccine 00:00:00 [facility] Influenza Virus 2020-08-13 Completed [facility] Vaccine 00:00:00 [facility] Influenza Virus 2020-08-13 Completed [facility] Vaccine 00:00:00 [facility] Influenza Virus 2020-08-13 Completed [facility] Vaccine 00:00:00 [facility] Influenza Virus 2020-08-13 Completed [facility] Vaccine 00:00:00 [facility] Influenza Virus 2020-08-13 Completed [facility] Vaccine 00:00:00 [facility] Influenza Virus 2020-08-13 Completed [facility] Vaccine 00:00:00 [facility] Influenza Virus 2020-08-13 Completed [facility] Vaccine 00:00:00 [facility] Influenza Virus 2020-08-13 Completed [facility] Vaccine 00:00:00 [facility] Influenza Virus 2020-08-13 Completed [facility] Vaccine 00:00:00 [facility] Influenza Virus 2020-08-13 Completed [facility] Vaccine 00:00:00 [facility] Influenza Virus 2020-08-13 Completed [facility] Vaccine 00:00:00 [facility] Influenza Virus 2020-08-13 Completed [facility] Vaccine 00:00:00 [facility] Influenza Virus 2020-08-13 Completed [facility] Vaccine 00:00:00 [facility] Influenza Virus 2020-08-13 Completed [facility] Vaccine 00:00:00 [facility] Influenza Virus 2020-08-13 Completed [facility] Vaccine 00:00:00 [facility] Influenza Virus 2020-08-13 Completed [facility] Vaccine 00:00:00 [facility] Influenza Virus 2020-08-13 Completed [facility] Vaccine 00:00:00 [facility] Influenza Virus 2020-08-13 Completed [facility] Vaccine 00:00:00 [facility] Influenza Virus 2020-08-13 Completed [facility] Vaccine 00:00:00 [facility] Influenza Virus 2020-08-13 Completed [facility] Vaccine 00:00:00 [facility] Influenza Virus 2020-08-13 Completed [facility] Vaccine 00:00:00 [facility] Influenza Virus 2020-08-13 Completed [facility] Vaccine 00:00:00 [facility] Influenza Virus 2020-08-13 Completed [facility] Vaccine 00:00:00 [facility] Influenza Virus 2020-08-13 Completed [facility] Vaccine 00:00:00 [facility] Influenza Virus 2020-08-13 Completed [facility] Vaccine 00:00:00 [facility] Influenza Virus 2020-08-13 Completed [facility] Vaccine 00:00:00 [facility] Influenza Virus 2020-08-13 Completed [facility] Vaccine 00:00:00 [facility] Influenza Virus 2020-08-13 Completed [facility] Vaccine 00:00:00 [facility] Influenza Virus 2020-08-13 Completed [facility] Vaccine 00:00:00 [facility] Influenza Virus 2020-08-13 Completed [facility] Vaccine 00:00:00 [facility] Influenza Virus 2020-08-13 Completed [facility] Vaccine 00:00:00 [facility] Influenza Virus 2020-08-13 Completed [facility] Vaccine 00:00:00 [facility] Influenza Virus 2020-08-13 Completed [facility] Vaccine 00:00:00 [facility] Influenza Virus 2020-08-13 Completed [facility] Vaccine 00:00:00 [facility] Influenza Virus 2020-08-13 Completed [facility] Vaccine 00:00:00 [facility] Influenza Virus 2020-08-13 Completed [facility] Vaccine 00:00:00 [facility] Influenza Virus 2020-08-13 Completed [facility] Vaccine 00:00:00 [facility] Influenza Virus 2020-08-13 Completed [facility] Vaccine 00:00:00 [facility] Influenza Virus 2020-08-13 Completed [facility] Vaccine 00:00:00 [facility] Influenza Virus 2020-08-13 Completed [facility] Vaccine 00:00:00 [facility] Influenza Virus 2020-08-13 Completed [facility] Vaccine 00:00:00 [facility] Influenza Virus 2020-08-13 Completed [facility] Vaccine 00:00:00 [facility] Influenza Virus 2020-08-13 Completed [facility] Vaccine 00:00:00 [facility] Influenza Virus 2020-08-13 Completed [facility] Vaccine 00:00:00 [facility] Influenza Virus 2020-08-13 Completed [facility] Vaccine 00:00:00 [facility] Influenza Virus 2020-08-13 Completed [facility] Vaccine 00:00:00 [facility] Influenza Virus 2020-08-13 Completed [facility] Vaccine 00:00:00 [facility] Influenza Virus 2020-08-13 Completed [facility] Vaccine 00:00:00 [facility] Influenza Virus 2020-08-13 Completed [facility] Vaccine 00:00:00 [facility] Influenza Virus 2020-08-13 Completed [facility] Vaccine 00:00:00 [facility] Influenza Virus 2020-08-13 Completed [facility] Vaccine 00:00:00 [facility] Influenza Virus 2020-08-13 Completed [facility] Vaccine 00:00:00 [facility] Influenza Virus 2020-08-13 Completed [facility] Vaccine 00:00:00 [facility] Influenza Virus 2020-08-13 Completed [facility] Vaccine 00:00:00 [facility] Influenza Virus 2020-08-13 Completed [facility] Vaccine 00:00:00 [facility] Influenza Virus 2020-08-13 Completed [facility] Vaccine 00:00:00 [facility] Influenza Virus 2020-08-13 Completed [facility] Vaccine 00:00:00 [facility] Influenza Virus 2020-08-13 Completed [facility] Vaccine 00:00:00 [facility] Influenza Virus 2020-08-13 Completed [facility] Vaccine 00:00:00 [facility] Influenza Virus 2020-08-13 Completed [facility] Vaccine 00:00:00 [facility] Influenza Virus 2020-08-13 Completed [facility] Vaccine 00:00:00 [facility] Influenza Virus 2020-08-13 Completed [facility] Vaccine 00:00:00 [facility] Influenza Virus 2020-08-13 Completed [facility] Vaccine 00:00:00 [facility] Influenza Virus 2020-08-13 Completed [facility] Vaccine 00:00:00 [facility] Pneumococcal 2017-06-23 Completed [facility] f Polysaccharide, 00:00:00 [place] [facility] PPSV23 (PNEUMOVAX) [facility] Pneumococcal 2017-06-23 [...] 2017-06-23 Completed [facility] f Polysaccharide, 00:00:00 [place] [facility] PPSV23 (PNEUMOVAX) [facility] Influenza High Dose 2015-11-16 Completed [facility]ive rsity of 00:00:00 [facility] Pneumococcal 2015-11-16 Completed [facility] f Polysaccharide, 00:00:00 [place] [facility] PPSV23 (PNEUMOVAX) Branch Influenza High Dose 2015-11-16 Completed [facility]ive rsity of 00:00:00 [facility] Pneumococcal 2015-11-16 Completed [facility] Polysaccharide, 00:00:00 [place] [facility] PPSV23 (PNEUMOVAX) [facility] Influenza High Dose 2015-11-16 Completed [facility]ive rsity of 00:00:00 [facility] Pneumococcal 2015-11-16 Completed [facility] Polysaccharide, 00:00:00 [place] [facility] PPSV23 (PNEUMOVAX) Branch Influenza High Dose 2015-11-16 Completed [facility]ive rsity of 00:00:00 [facility] Pneumococcal 2015-11-16 Completed [facility] Polysaccharide, 00:00:00 [place] [facility] PPSV23 (PNEUMOVAX) Branch Influenza High Dose 2015-11-16 Completed [facility]ive rsity of 00:00:00 [facility] Pneumococcal 2015-11-16 Completed [facility] Polysaccharide, 00:00:00 [place] [facility] PPSV23 (PNEUMOVAX) Branch Influenza High Dose 2015-11-16 Completed [facility]ive rsity of 00:00:00 [facility] Pneumococcal 2015-11-16 Completed [facility] f Polysaccharide, 00:00:00 [place] [facility] PPSV23 (PNEUMOVAX) Branch Influenza High Dose 2015-11-16 Completed [facility]ive rsity of 00:00:00 [facility] Pneumococcal 2015-11-16 Completed [facility] f Polysaccharide, 00:00:00 [place] [facility] PPSV23 (PNEUMOVAX) Branch Influenza High Dose 2015-11-16 Completed [facility]ive rsity of 00:00:00 [facility] Pneumococcal 2015-11-16 Completed [facility] f Polysaccharide, 00:00:00 [place] [facility] PPSV23 (PNEUMOVAX) Branch Influenza High Dose 2015-11-16 Completed [facility]ive rsity of 00:00:00 [facility] Pneumococcal 2015-11-16 Completed [facility] f Polysaccharide, 00:00:00 [place] [facility] PPSV23 (PNEUMOVAX) Branch Influenza High Dose 2015-11-16 Completed [facility]ive rsity of 00:00:00 [facility] Pneumococcal 2015-11-16 Completed [facility] f Polysaccharide, 00:00:00 [place] [facility] PPSV23 (PNEUMOVAX) Branch Influenza High Dose 2015-11-16 Completed [facility]ive rsity of 00:00:00 [facility] Pneumococcal 2015-11-16 Completed [facility] Polysaccharide, 00:00:00 [place] [facility] PPSV23 (PNEUMOVAX) Branch Influenza High Dose 2015-11-16 Completed [facility]ive rsity of 00:00:00 [facility] Pneumococcal 2015-11-16 Completed [facility] f Polysaccharide, 00:00:00 [place] [facility] PPSV23 (PNEUMOVAX) Branch Influenza High Dose 2015-11-16 Completed [facility]ive rsity of 00:00:00 [facility] Pneumococcal 2015-11-16 Completed [facility] f Polysaccharide, 00:00:00 [place] [facility] PPSV23 (PNEUMOVAX) Branch Influenza High Dose 2015-11-16 Completed [facility]ive rsity of 00:00:00 [facility] Pneumococcal 2015-11-16 Completed [facility] f Polysaccharide, 00:00:00 [place] [facility] PPSV23 (PNEUMOVAX) Branch Influenza High Dose 2015-11-16 Completed [facility]ive rsity of 00:00:00 [facility] Pneumococcal 2015-11-16 Completed [facility] f Polysaccharide, 00:00:00 [place] [facility] PPSV23 (PNEUMOVAX) Branch Influenza High Dose 2015-11-16 Completed [facility]ive rsity of 00:00:00 [facility] Pneumococcal 2015-11-16 Completed [facility] f Polysaccharide, 00:00:00 [place] [facility] PPSV23 (PNEUMOVAX) Branch Influenza High Dose 2015-11-16 Completed [facility] rsity of 00:00:00 [facility] Pneumococcal 2015-11-16 Completed [facility] f Polysaccharide, 00:00:00 [place] [facility] PPSV23 (PNEUMOVAX) Branch Influenza High Dose 2015-11-16 Completed [facility]ive rsity of 00:00:00 [facility] Pneumococcal 2015-11-16 Completed [facility] f Polysaccharide, 00:00:00 [place] [facility] PPSV23 (PNEUMOVAX) Branch Influenza High Dose 2015-11-16 Completed [facility]ive rsity of 00:00:00 [facility] Pneumococcal 2015-11-16 Completed [facility] f Polysaccharide, 00:00:00 [place] [facility] PPSV23 (PNEUMOVAX) Branch Influenza High Dose 2015-11-16 Completed [facility]ive rsity of 00:00:00 [facility] Pneumococcal 2015-11-16 Completed [facility] f Polysaccharide, 00:00:00 [place] [facility] PPSV23 (PNEUMOVAX) Branch Influenza High Dose 2015-11-16 Completed [facility]ive rsity of 00:00:00 [facility] Pneumococcal 2015-11-16 Completed [facility] f Polysaccharide, 00:00:00 [place] [facility] PPSV23 (PNEUMOVAX) Branch Influenza High Dose 2015-11-16 Completed [facility]ive rsity of 00:00:00 [facility] Pneumococcal 2015-11-16 Completed [facility] f Polysaccharide, 00:00:00 [place] [facility] PPSV23 (PNEUMOVAX) Branch Influenza High Dose 2015-11-16 Completed [facility]ive rsity of 00:00:00 [facility] Pneumococcal 2015-11-16 Completed [facility] f Polysaccharide, 00:00:00 [place] [facility] PPSV23 (PNEUMOVAX) Branch Influenza High Dose 2015-11-16 Completed [facility]ive rsity of 00:00:00 [facility] Pneumococcal 2015-11-16 Completed [facility] f Polysaccharide, 00:00:00 [place] [facility] PPSV23 (PNEUMOVAX) Branch Influenza High Dose 2015-11-16 Completed [facility]ive rsity of 00:00:00 [facility] Pneumococcal 2015-11-16 Completed [facility] f Polysaccharide, 00:00:00 [place] [facility] PPSV23 (PNEUMOVAX) Branch Influenza High Dose 2015-11-16 Completed [facility]ive rsity of 00:00:00 [facility] Pneumococcal 2015-11-16 Completed [facility] f Polysaccharide, 00:00:00 [place] [facility] PPSV23 (PNEUMOVAX) Branch Influenza High Dose 2015-11-16 Completed [facility]ive rsity of 00:00:00 [facility] Pneumococcal 2015-11-16 Completed [facility] f Polysaccharide, 00:00:00 [place] [facility] PPSV23 (PNEUMOVAX) [facility] Influenza High Dose 2015-11-16 Completed [facility]ive rsity of 00:00:00 [facility] Pneumococcal 2015-11-16 Completed [facility] f Polysaccharide, 00:00:00 [place] [facility] PPSV23 (PNEUMOVAX) Branch Influenza High Dose 2015-11-16 Completed [facility]ive rsity of 00:00:00 [facility] Pneumococcal 2015-11-16 Completed [facility] f Polysaccharide, 00:00:00 [place] [facility] PPSV23 (PNEUMOVAX) Branch Influenza High Dose 2015-11-16 Completed [facility]ive rsity of 00:00:00 [facility] Pneumococcal 2015-11-16 Completed [facility] f Polysaccharide, 00:00:00 [place] [facility] PPSV23 (PNEUMOVAX) Branch Influenza High Dose 2015-11-16 Completed [facility] rsity of 00:00:00 [facility] Pneumococcal 2015-11-16 Completed [facility] f Polysaccharide, 00:00:00 [place] [facility] PPSV23 (PNEUMOVAX) Branch Influenza High Dose 2015-11-16 Completed [facility] rsity of 00:00:00 [facility] Pneumococcal 2015-11-16 Completed [facility] f Polysaccharide, 00:00:00 [place] [facility] PPSV23 (PNEUMOVAX) Branch Influenza High Dose 2015-11-16 Completed [facility]ive rsity of 00:00:00 [facility] Pneumococcal 2015-11-16 Completed [facility] f Polysaccharide, 00:00:00 [place] [facility] PPSV23 (PNEUMOVAX) Branch Influenza High Dose 2015-11-16 Completed [facility] rsity of 00:00:00 [facility] Pneumococcal 2015-11-16 Completed [facility] f Polysaccharide, 00:00:00 [place] [facility] PPSV23 (PNEUMOVAX) Branch Influenza High Dose 2015-11-16 Completed [facility]ive rsity of 00:00:00 [facility] Pneumococcal 2015-11-16 Completed [facility] f Polysaccharide, 00:00:00 [place] [facility] PPSV23 (PNEUMOVAX) Branch Influenza High Dose 2015-11-16 Completed [facility]ive rsity of 00:00:00 [facility] Pneumococcal 2015-11-16 Completed [facility] f Polysaccharide, 00:00:00 [place] [facility] PPSV23 (PNEUMOVAX) Branch Influenza High Dose 2015-11-16 Completed [facility]ive rsity of 00:00:00 [facility] Pneumococcal 2015-11-16 Completed [facility] f Polysaccharide, 00:00:00 [place] [facility] PPSV23 (PNEUMOVAX) Branch Influenza High Dose 2015-11-16 Completed [facility]ive rsity of 00:00:00 [facility] Pneumococcal 2015-11-16 Completed [facility] f Polysaccharide, 00:00:00 [place] [facility] PPSV23 (PNEUMOVAX) Branch Influenza High Dose 2015-11-16 Completed [facility]ive rsity of 00:00:00 [facility] Pneumococcal 2015-11-16 Completed [facility] f Polysaccharide, 00:00:00 [place] [facility] PPSV23 (PNEUMOVAX) Branch Influenza High Dose 2015-11-16 Completed [facility]ive rsity of 00:00:00 [facility] Pneumococcal 2015-11-16 Completed [facility] f Polysaccharide, 00:00:00 [place] [facility] PPSV23 (PNEUMOVAX) Branch Influenza High Dose 2015-11-16 Completed [facility]ive rsity of 00:00:00 [facility] Pneumococcal 2015-11-16 Completed [facility] o f Polysaccharide, 00:00:00 [place] [facility] PPSV23 (PNEUMOVAX) Branch Influenza High Dose 2015-11-16 Completed [facility]ive rsity of 00:00:00 [facility] Pneumococcal 2015-11-16 Completed [facility] f Polysaccharide, 00:00:00 [place] [facility] PPSV23 (PNEUMOVAX) Branch Influenza High Dose 2015-11-16 Completed [facility]ive rsity of 00:00:00 [facility] Pneumococcal 2015-11-16 Completed [facility] o f Polysaccharide, 00:00:00 [place] [facility] PPSV23 (PNEUMOVAX) Branch Influenza High Dose 2015-11-16 Completed [facility]ive rsity of 00:00:00 [facility] Pneumococcal 2015-11-16 Completed [facility] f Polysaccharide, 00:00:00 [place] [facility] PPSV23 (PNEUMOVAX) Branch Influenza High Dose 2015-11-16 Completed [facility]ive rsity of 00:00:00 [facility] Pneumococcal 2015-11-16 Completed [facility] f Polysaccharide, 00:00:00 [place] [facility] PPSV23 (PNEUMOVAX) Branch Influenza High Dose 2015-11-16 Completed [facility]ive rsity of 00:00:00 [facility] Pneumococcal 2015-11-16 Completed [facility] o f Polysaccharide, 00:00:00 [place] [facility] PPSV23 (PNEUMOVAX) Branch Influenza High Dose 2015-11-16 Completed [facility]ive rsity of 00:00:00 [facility] Pneumococcal 2015-11-16 Completed [facility] o f Polysaccharide, 00:00:00 [place] [facility] PPSV23 (PNEUMOVAX) Branch Influenza High Dose 2015-11-16 Completed [facility]ive rsity of 00:00:00 [facility] Pneumococcal 2015-11-16 Completed [facility] o f Polysaccharide, 00:00:00 [place] [facility] PPSV23 (PNEUMOVAX) Branch Influenza High Dose 2015-11-16 Completed [facility] rsity of 00:00:00 [facility] Pneumococcal 2015-11-16 Completed [facility] o f Polysaccharide, 00:00:00 [place] [facility] PPSV23 (PNEUMOVAX) Branch Influenza High Dose 2015-11-16 Completed [facility] rsity of 00:00:00 [facility] Pneumococcal 2015-11-16 Completed [facility] o f Polysaccharide, 00:00:00 [place] [facility] PPSV23 (PNEUMOVAX) Branch Influenza High Dose 2015-11-16 Completed [facility] rsity of 00:00:00 [facility] Pneumococcal 2015-11-16 Completed [facility] o f Polysaccharide, 00:00:00 [place] [facility] PPSV23 (PNEUMOVAX) Branch Influenza High Dose 2015-11-16 Completed [facility] rsity of 00:00:00 [facility] Pneumococcal 2015-11-16 Completed [facility] o f Polysaccharide, 00:00:00 [place] [facility] PPSV23 (PNEUMOVAX) Branch Influenza High Dose 2015-11-16 Completed [facility] rsity of 00:00:00 [facility] Pneumococcal 2015-11-16 Completed [facility] f Polysaccharide, 00:00:00 [place] [facility] PPSV23 (PNEUMOVAX) Branch Influenza High Dose 2015-11-16 Completed [facility] rsity of 00:00:00 [facility] Pneumococcal 2015-11-16 Completed [facility] o f Polysaccharide, 00:00:00 [place] [facility] PPSV23 (PNEUMOVAX) Branch Influenza High Dose 2015-11-16 Completed [facility] rsity of 00:00:00 [facility] Pneumococcal 2015-11-16 Completed [facility] o f Polysaccharide, 00:00:00 [place] [facility] PPSV23 (PNEUMOVAX) Branch Influenza High Dose 2015-11-16 Completed [facility] rsity of 00:00:00 [facility] Pneumococcal 2015-11-16 Completed [facility] o f Polysaccharide, 00:00:00 [place] [facility] PPSV23 (PNEUMOVAX) Branch Influenza High Dose 2015-11-16 Completed [facility] rsity of 00:00:00 [facility] Pneumococcal 2015-11-16 Completed [facility] o f Polysaccharide, 00:00:00 [place] [facility] PPSV23 (PNEUMOVAX) Branch Influenza High Dose 2015-11-16 Completed [facility] rsity of 00:00:00 [facility] Pneumococcal 2015-11-16 Completed [facility] o f Polysaccharide, 00:00:00 [place] [facility] PPSV23 (PNEUMOVAX) Branch Influenza High Dose 2015-11-16 Completed [facility] rsity of 00:00:00 [facility] Pneumococcal 2015-11-16 Completed [facility] o f Polysaccharide, 00:00:00 [place] [facility] PPSV23 (PNEUMOVAX) Branch Influenza High Dose 2015-11-16 Completed [facility] rsity of 00:00:00 [facility] Pneumococcal 2015-11-16 Completed [facility] o f Polysaccharide, 00:00:00 [place] [facility] PPSV23 (PNEUMOVAX) Branch Influenza High Dose 2015-11-16 Completed [facility] rsity of 00:00:00 [facility] Pneumococcal 2015-11-16 Completed [facility] o f Polysaccharide, 00:00:00 [place] [facility] PPSV23 (PNEUMOVAX) Branch Influenza High Dose 2015-11-16 Completed [facility] rsity of 00:00:00 [facility] Pneumococcal 2015-11-16 Completed [facility] o f Polysaccharide, 00:00:00 [place] [facility] PPSV23 (PNEUMOVAX) Branch Influenza High Dose 2015-11-16 Completed [facility] rsity of 00:00:00 [facility] Pneumococcal 2015-11-16 Completed [facility] o f Polysaccharide, 00:00:00 [place] [facility] PPSV23 (PNEUMOVAX) Branch Influenza High Dose 2015-11-16 Completed [facility] rsity of 00:00:00 [facility] Pneumococcal 2015-11-16 Completed [facility] o f Polysaccharide, 00:00:00 [place] [facility] PPSV23 (PNEUMOVAX) Branch Influenza High Dose 2015-11-16 Completed [facility]ity of 00:00:00 [facility] Pneumococcal 2015-11-16 Completed [facility] o f Polysaccharide, 00:00:00 [place] [facility] PPSV23 (PNEUMOVAX) Branch Influenza High Dose 2015-11-16 Completed [facility]ity of 00:00:00 [facility] Pneumococcal 2015-11-16 Completed [facility] o f Polysaccharide, 00:00:00 [place] [facility] PPSV23 (PNEUMOVAX) Branch Influenza High Dose 2015-11-16 Completed [facility]ity of 00:00:00 [facility] Pneumococcal 2015-11-16 Completed [facility] o f Polysaccharide, 00:00:00 [place] [facility] PPSV23 (PNEUMOVAX) Branch Influenza High Dose 2015-11-16 Completed [facility]ity of 00:00:00 [facility] Pneumococcal 2015-11-16 Completed [facility] o f Polysaccharide, 00:00:00 [place] [facility] PPSV23 (PNEUMOVAX) Branch Influenza High Dose 2015-11-16 Completed [facility]ity of 00:00:00 [facility] Pneumococcal 2015-11-16 Completed [facility] o f Polysaccharide, 00:00:00 [place] [facility] PPSV23 (PNEUMOVAX) Branch Influenza High Dose 2015-11-16 Completed [facility]ity of 00:00:00 [facility] Pneumococcal 2015-11-16 Completed [facility] o f Polysaccharide, 00:00:00 [place] [facility] PPSV23 (PNEUMOVAX) Branch Influenza High Dose 2015-11-16 Completed [facility] of 00:00:00 [facility] Pneumococcal 2015-11-16 Completed [facility] o f Polysaccharide, 00:00:00 [place] [facility] PPSV23 (PNEUMOVAX) Branch Influenza High Dose 2015-11-16 Completed Unive rsity of 00:00:00 [facility] Pneumococcal 2015-11-16 Completed University o f Polysaccharide, 00:00:00 [place] [facility] PPSV23 (PNEUMOVAX) Branch Influenza High Dose 2015-11-16 Completed Unive rsity of 00:00:00 [facility] Pneumococcal 2015-11-16 Completed University o f Polysaccharide, 00:00:00 [place] [facility] PPSV23 (PNEUMOVAX) Branch Influenza High Dose 2015-11-16 Completed Unive rsity of 00:00:00 [facility] Pneumococcal 2015-11-16 Completed [facility] o f Polysaccharide, 00:00:00 [place] [facility] PPSV23 (PNEUMOVAX) Branch Influenza High Dose 2015-11-16 Completed Unive rsity of 00:00:00 [facility] Pneumococcal 2015-11-16 Completed University o f Polysaccharide, 00:00:00 [place] [facility] PPSV23 (PNEUMOVAX) [facility] Influenza High Dose 2015-11-16 Completed Unive rsity of 00:00:00 [facility] Pneumococcal 2015-11-16 Completed [facility] o f Polysaccharide, 00:00:00 [place] [facility] PPSV23 (PNEUMOVAX) Branch Influenza High Dose 2015-11-16 Completed Unive rsity of 00:00:00 [facility] Pneumococcal 2015-11-16 Completed [facility] o f Polysaccharide, 00:00:00 [place] [facility] PPSV23 (PNEUMOVAX) Branch Influenza High Dose 2015-11-16 Completed [facility]ive rsity of 00:00:00 [facility] Pneumococcal 2015-11-16 Completed [facility] o f Polysaccharide, 00:00:00 [place] [facility] PPSV23 (PNEUMOVAX) [facility] Influenza High Dose 2015-11-16 Completed [facility]ive rsity of 00:00:00 [facility] Pneumococcal 2015-11-16 Completed [facility] o f Polysaccharide, 00:00:00 [place] [facility] PPSV23 (PNEUMOVAX) Branch Influenza High Dose 2015-11-16 Completed [facility]ive rsity of 00:00:00 [facility] Pneumococcal 2015-11-16 Completed [facility] o f Polysaccharide, 00:00:00 [place] [facility] PPSV23 (PNEUMOVAX) Branch Influenza High Dose 2015-11-16 Completed [facility]ive rsity of 00:00:00 [facility] Pneumococcal 2015-11-16 Completed [facility] o f Polysaccharide, 00:00:00 [place] [facility] PPSV23 (PNEUMOVAX) Branch Influenza High Dose 2015-11-16 Completed [facility]ive rsity of 00:00:00 [facility] Pneumococcal 2015-11-16 Completed [facility] o f Polysaccharide, 00:00:00 [place] [facility] PPSV23 (PNEUMOVAX) Branch Influenza High Dose 2015-11-16 Completed [facility]ive rsity of 00:00:00 [facility] Pneumococcal 2015-11-16 Completed [facility] o f Polysaccharide, 00:00:00 [place] [facility] PPSV23 (PNEUMOVAX) Branch Influenza High Dose 2015-11-16 Completed [facility]ive rsity of 00:00:00 [facility] Pneumococcal 2015-11-16 Completed [facility] o f Polysaccharide, 00:00:00 [place] [facility] PPSV23 (PNEUMOVAX) Branch Influenza High Dose 2015-11-16 Completed [facility]ive rsity of 00:00:00 [facility] Pneumococcal 2015-11-16 Completed [facility] o f Polysaccharide, 00:00:00 [place] [facility] PPSV23 (PNEUMOVAX) Branch Influenza High Dose 2015-11-16 Completed [facility]ive rsity of 00:00:00 [facility] Pneumococcal 2015-11-16 Completed [facility] o f Polysaccharide, 00:00:00 [place] [facility] PPSV23 (PNEUMOVAX) Branch Influenza High Dose 2015-11-16 Completed [facility]ive rsity of 00:00:00 [facility] Pneumococcal 2015-11-16 Completed [facility] o f Polysaccharide, 00:00:00 [place] [facility] PPSV23 (PNEUMOVAX) Branch Influenza High Dose 2015-11-16 Completed [facility]ive rsity of 00:00:00 [facility] Pneumococcal 2015-11-16 Completed [facility] o f Polysaccharide, 00:00:00 [place] [facility] PPSV23 (PNEUMOVAX) Branch Influenza High Dose 2015-11-16 Completed [facility]ive rsity of 00:00:00 [facility] Pneumococcal 2015-11-16 Completed [facility] o f Polysaccharide, 00:00:00 [place] [facility] PPSV23 (PNEUMOVAX) Branch Influenza High Dose 2015-11-16 Completed [facility]ive rsity of 00:00:00 [facility] Pneumococcal 2015-11-16 Completed University o f Polysaccharide, 00:00:00 [place] [facility] PPSV23 (PNEUMOVAX) Branch Influenza High Dose 2015-11-16 Completed [facility]ive rsity of 00:00:00 [facility] Pneumococcal 2015-11-16 Completed [facility] o f Polysaccharide, 00:00:00 [place] [facility] PPSV23 (PNEUMOVAX) Branch Influenza High Dose 2015-11-16 Completed [facility]ive rsity of 00:00:00 [facility] Pneumococcal 2015-11-16 Completed [facility] o f Polysaccharide, 00:00:00 [place] [facility] PPSV23 (PNEUMOVAX) Branch Influenza High Dose 2015-11-16 Completed [facility]ive rsity of 00:00:00 [facility] Pneumococcal 2015-11-16 Completed [facility] o f Polysaccharide, 00:00:00 [place] [facility] PPSV23 (PNEUMOVAX) Branch Influenza High Dose 2015-11-16 Completed [facility]ive rsity of 00:00:00 [facility] Pneumococcal 2015-11-16 Completed [facility] o f Polysaccharide, 00:00:00 [place] [facility] PPSV23 (PNEUMOVAX) Branch Influenza High Dose 2015-11-16 Completed [facility]ive rsity of 00:00:00 [facility] Pneumococcal 2015-11-16 Completed [facility] o f Polysaccharide, 00:00:00 [place] [facility] PPSV23 (PNEUMOVAX) Branch Influenza High Dose 2015-11-16 Completed [facility]ive rsity of 00:00:00 [facility] Pneumococcal 2015-11-16 Completed [facility] o f Polysaccharide, 00:00:00 [place] [facility] PPSV23 (PNEUMOVAX) Branch Influenza High Dose 2015-11-16 Completed [facility]ive rsity of 00:00:00 [facility] Pneumococcal 2015-11-16 Completed [facility] o f Polysaccharide, 00:00:00 [place] [facility] PPSV23 (PNEUMOVAX) Branch Influenza High Dose 2015-11-16 Completed [facility]ive rsity of 00:00:00 [facility] Pneumococcal 2015-11-16 Completed University o f Polysaccharide, 00:00:00 [place] [facility] PPSV23 (PNEUMOVAX) Branch Influenza High Dose 2015-11-16 Completed [facility]ive rsity of 00:00:00 [facility] Pneumococcal 2015-11-16 Completed [facility] o f Polysaccharide, 00:00:00 [place] [facility] PPSV23 (PNEUMOVAX) Branch Influenza High Dose 2015-11-16 Completed [facility]ive rsity of 00:00:00 [facility] Pneumococcal 2015-11-16 Completed [facility] o f Polysaccharide, 00:00:00 [place] [facility] PPSV23 (PNEUMOVAX) Branch Influenza High Dose 2015-11-16 Completed [facility]ive rsity of 00:00:00 [facility] Pneumococcal 2015-11-16 Completed [facility] o f Polysaccharide, 00:00:00 [place] [facility] PPSV23 (PNEUMOVAX) Branch Influenza High Dose 2015-11-16 Completed [facility]ive rsity of 00:00:00 [facility] Pneumococcal 2015-11-16 Completed University o f Polysaccharide, 00:00:00 [place] [facility] PPSV23 (PNEUMOVAX) Branch Influenza High Dose 2015-11-16 Completed [facility]ive rsity of 00:00:00 [facility] Pneumococcal 2015-11-16 Completed [facility] o f Polysaccharide, 00:00:00 [place] [facility] PPSV23 (PNEUMOVAX) Branch Influenza High Dose 2015-11-16 Completed [facility]ive rsity of 00:00:00 [facility] Pneumococcal 2015-11-16 Completed [facility] o f Polysaccharide, 00:00:00 [place] [facility] PPSV23 (PNEUMOVAX) Branch Influenza High Dose 2015-11-16 Completed [facility]ive rsity of 00:00:00 [facility] Pneumococcal 2015-11-16 Completed [facility] o f Polysaccharide, 00:00:00 [place] [facility] PPSV23 (PNEUMOVAX) [facility] Influenza High Dose 2015-11-16 Completed [facility]ive rsity of 00:00:00 [facility] Pneumococcal 2015-11-16 Completed [facility] o f Polysaccharide, 00:00:00 [place] [facility] PPSV23 (PNEUMOVAX) Branch Influenza High Dose 2015-11-16 Completed [facility]ive rsity of 00:00:00 [facility] Pneumococcal 2015-11-16 Completed [facility] o f Polysaccharide, 00:00:00 [place] [facility] PPSV23 (PNEUMOVAX) [facility] Influenza High Dose 2015-11-16 Completed [facility]ive rsity of 00:00:00 [facility] Pneumococcal 2015-11-16 Completed [facility] o f Polysaccharide, 00:00:00 [place] [facility] PPSV23 (PNEUMOVAX) [facility] Influenza High Dose 2015-11-16 Completed [facility]ive rsity of 00:00:00 [facility] Pneumococcal 2015-11-16 Completed [facility] o f Polysaccharide, 00:00:00 [place] [facility] PPSV23 (PNEUMOVAX) Branch Influenza High Dose 2015-11-16 Completed Unive rsity of 00:00:00 [facility] Pneumococcal 2015-11-16 Completed University o f Polysaccharide, 00:00:00 [place] [facility] PPSV23 (PNEUMOVAX) Branch Influenza High Dose 2015-11-16 Completed [facility]ive rsity of 00:00:00 [facility] Pneumococcal 2015-11-16 Completed [facility] o f Polysaccharide, 00:00:00 [place] [facility] PPSV23 (PNEUMOVAX) [facility] Influenza High Dose 2015-11-16 Completed [facility]ive rsity of 00:00:00 [facility] Pneumococcal 2015-11-16 Completed University o f Polysaccharide, 00:00:00 [place] [facility] PPSV23 (PNEUMOVAX) [facility] Vital Signs Vital Name Observation Time Observation Value Comments Source HEIGHT 2021-02-10 21:00:00 149.9 cm WEIGHT 2021-02-10 21:00:00 59.467 kg Systolic blood 2023-01-26 01:02:00 119 mm[Hg] Univer sity of pressure [facility] Diastolic blood 2023-01-26 01:02:00 74 mm[Hg] Unive rsity of [facility] Heart rate 2023-01-26 01:02:00 91 /min Universi [facility] [place] [facility] Respiratory rate 2023-01-26 01:02:00 18 /[facility] 2023-01-26 01:02:00 96 /min University of Arterial blood by [place] [facility] oxim[facility] Systolic blood 2023-01-25 12:00:00 113 mm[Hg] Univer sity of pressure [facility] Diastolic blood 2023-01-25 12:00:00 80 mm[Hg] Unive rsity of [facility] Heart rate 2023-01-25 12:00:00 83 /min Universi [facility] [place] [facility] Respiratory rate 2023-01-25 12:00:00 16 /min Univ ersity of [facility] Oxygen saturation in 2023-01-25 12:00:00 95 /min [facility] Arterial blood by [place] [facility] Pulse oximetry [facility] Body temperature 2023-01-25 08:30:00 36.61 Ayaka Univ ersity of [facility] Body height 2023-01-25 08:30:00 149.9 cm Universi ty [facility] Body weight 2023-01-25 08:30:00 56.7 kg Universi ty [facility] BMI 2023-01-25 08:30:00 25.25 kg/m2 [facility] Systolic blood 2023-01-24 06:54:59 95 mm[Hg] Univer [facility]ity of pressure [facility] Diastolic blood 2023-01-24 06:54:59 73 mm[Hg] Unive rsity of pressure [facility] Heart rate 2023-01-24 06:54:59 97 /min [facility] Respiratory rate 2023-01-24 06:54:59 16 /min [facility] Oxygen saturation in 2023-01-24 06:54:59 97 /min [facility] of Arterial blood by [facility] Pulse oximetry Branch Body temperature 2023-01-24 05:54:00 36.78 Ayaka [facility] Body height 2023-01-24 02:59:00 149.9 cm [facility] Body weight 2023-01-24 02:59:00 56.7 kg [facility] BMI 2023-01-24 02:59:00 25.25 kg/m2 [facility] Systolic blood 2023-01-19 14:50:00 115 mm[Hg] Univer sity of pressure [facility] Diastolic blood 2023-01-19 14:50:00 77 mm[Hg] [facility]ive rsity of pressure [facility] Heart rate 2023-01-19 14:50:00 74 /min [facility] Body temperature 2023-01-19 14:50:00 36.67 Ayaka [facility] Respiratory rate 2023-01-19 14:50:00 18 /min [facility] Body weight 2023-01-19 14:50:00 56.836 kg [facility] BMI 2023-01-19 14:50:00 25.31 kg/m2 [facility] Oxygen saturation in 2023-01-19 14:50:00 99 /min [facility] Arterial blood by [facility] Pulse oximetry Branch Systolic blood 2023-01-11 01:15:00 125 mm[Hg] Univer [facility]ity of pressure [facility] Diastolic blood 2023-01-11 01:15:00 75 mm[Hg] Unive rsity of pressure [facility] Heart rate 2023-01-11 01:15:00 88 /min [facility] Body temperature 2023-01-11 01:15:00 37.5 Ayaka [facility] Respiratory rate 2023-01-11 01:15:00 16 /min [facility] Body height 2023-01-11 01:15:00 149.9 cm [facility] Body weight 2023-01-11 01:15:00 56.7 kg [facility] BMI 2023-01-11 01:15:00 25.25 kg/m2 [facility] [place] [facility] Oxygen saturation in 2023-01-11 01:15:00 100 /min [facility] of Arterial blood by [facility]ane Pulse oximetry Branch Systolic blood 2022-12-23 11:00:00 113 mm[Hg] Univer sity of pressure [facility] Diastolic blood 2022-12-23 11:00:00 82 mm[Hg] Unive rsity of pressure [facility] Heart rate 2022-12-23 11:00:00 84 /min [facility] Respiratory rate 2022-12-23 11:00:00 15 /min [facility] Oxygen saturation in 2022-12-23 11:00:00 95 /min [facility] Arterial blood by [facility] Pulse oximetry Branch Body temperature 2022-12-23 08:08:00 36.83 Ayaka [facility] Body height 2022-12-23 08:08:00 149.9 cm [facility] Body weight 2022-12-23 08:08:00 54.432 kg [facility] BMI 2022-12-23 08:08:00 24.24 kg/m2 [facility] Systolic blood 2022-12-13 15:35:00 118 mm[Hg] Univer [facility]ity of pressure [facility] Diastolic blood 2022-12-13 15:35:00 79 mm[Hg] Unive rsity of pressure [facility] Heart rate 2022-12-13 15:35:00 99 /min [facility] Respiratory rate 2022-12-13 15:30:00 19 /min Univ [facility] Body height 2022-12-13 15:30:00 149.9 cm [facility] [place] [facility] Body weight 2022-12-13 15:30:00 54.205 kg [facility] [place] [facility] BMI 2022-12-13 15:30:00 24.14 kg/m2 [facility] [place] [facility] Oxygen saturation in 2022-12-13 15:30:00 96 /min [facility] Arterial blood by [facility] Pulse oximetry Branch Systolic blood 2022-12-06 21:00:00 120 mm[Hg] Univer sity of pressure [facility] Diastolic blood 2022-12-06 21:00:00 84 mm[Hg] Unive rsity of pressure [facility] Heart rate 2022-12-06 21:00:00 103 /min [facility] Respiratory rate 2022-12-06 21:00:00 19 /min [facility] Oxygen saturation in 2022-12-06 21:00:00 97 /min [facility] Arterial blood by [facility] Pulse oximetry Branch Body temperature 2022-12-06 18:00:00 36.28 Ayaka [facility] Body height 2022-12-06 16:44:00 149.9 cm [facility] Body weight 2022-12-06 16:44:00 56.7 kg [facility] BMI 2022-12-06 16:44:00 25.25 kg/m2 [facility] [place] [facility] Systolic blood 2022-12-01 16:07:00 121 mm[Hg] Univer sity of pressure [facility] Diastolic blood 2022-12-01 16:07:00 83 mm[Hg] Unive rsity of pressure [facility] Heart rate 2022-12-01 16:07:00 87 /min [facility] [place] [facility] Respiratory rate 2022-12-01 16:07:00 20 /min Univ ers[facility] Body height 2022-12-01 16:07:00 149.9 cm [facility] [place] [facility] Body weight 2022-12-01 16:07:00 55.339 kg [facility] [place] [facility] BMI 2022-12-01 16:07:00 24.64 kg/m2 [facility] [place] [facility] Oxygen saturation in 2022-12-01 16:07:00 98 /min [facility] Arterial blood by [facility] Pulse oximetry Branch Body height 2022-11-25 15:14:00 149.9 cm [facility] Body weight 2022-11-25 15:14:00 55.248 kg [facility] BMI 2022-11-25 15:14:00 24.60 kg/m2 [facility] Systolic blood 2022-11-23 08:12:00 126 mm[Hg] Univer sity of pressure [facility] Diastolic blood 2022-11-23 08:12:00 80 mm[Hg] Unive rsity of pressure [facility] Heart rate 2022-11-23 08:12:00 85 /min [facility] Body temperature 2022-11-23 08:12:00 36.67 Ayaka [facility] Respiratory rate 2022-11-23 08:12:00 16 /min [facility] Body height 2022-11-23 08:12:00 149.9 cm [facility] Body weight 2022-11-23 08:12:00 56.7 kg [facility] BMI 2022-11-23 08:12:00 25.25 kg/m2 [facility] Oxygen saturation in 2022-11-23 08:12:00 96 /min [facility] Arterial blood by [facility] Pulse oximetry Branch Systolic blood 2022-11-18 17:53:00 101 mm[Hg] Univer sity of pressure [facility] Diastolic blood 2022-11-18 17:53:00 71 mm[Hg] Unive rsity of pressure [facility] Heart rate 2022-11-18 17:53:00 75 /min [facility] Body temperature 2022-11-18 17:53:00 36.67 Ayaka [facility] Respiratory rate 2022-11-18 17:53:00 18 /min [facility] Oxygen saturation in 2022-11-18 17:53:00 97 /min [facility] Arterial blood by [facility] Pulse oximetry Branch Body height 2022-11-18 02:33:00 149.9 cm [facility] Body weight 2022-11-18 02:33:00 56.7 kg [facility] BMI 2022-11-18 02:33:00 25.25 kg/m2 [facility] Systolic blood 2022-11-17 22:47:42 135 mm[Hg] Univer sity of pressure [facility] Diastolic blood 2022-11-17 22:47:42 93 mm[Hg] Unive rsity of pressure [facility] Respiratory rate 2022-11-17 22:47:42 19 /min Univ [facility] Oxygen saturation in 2022-11-17 22:47:42 98 /min [facility] Arterial blood by [place] [facility] Pulse oxim[facility] Heart rate 2022-11-17 19:10:00 85 /min [facility] Body temperature 2022-11-17 19:10:00 36.44 Ayaka [facility] Body height 2022-11-17 19:10:00 149.9 cm [facility] Body weight 2022-11-17 19:10:00 56.7 kg [facility] BMI 2022-11-17 19:10:00 25.25 kg/m2 [facility] Systolic blood 2022-10-27 16:39:00 123 mm[Hg] Univer sity of pressure [facility] Diastolic blood 2022-10-27 16:39:00 85 mm[Hg] Unive rsity of pressure [facility] Heart rate 2022-10-27 16:39:00 105 /min [facility] Body temperature 2022-10-27 16:36:00 37.17 Ayaka [facility] Body height 2022-10-27 16:36:00 149.9 cm [facility] [place] [facility] Body weight 2022-10-27 16:36:00 54.885 kg [facility] [place] [facility] BMI 2022-10-27 16:36:00 24.44 kg/m2 [facility] Oxygen saturation in 2022-10-27 16:36:00 97 /min [facility] Arterial blood by [place] [facility] Pulse oxim[facility] Systolic blood 2022-10-25 19:02:00 132 mm[Hg] Univer sity of pressure [facility] Diastolic blood 2022-10-25 19:02:00 91 mm[Hg] Unive rsity of pressure [facility] Heart rate 2022-10-25 19:02:00 107 /min [facility] [place] [facility] Respiratory rate 2022-10-25 19:02:00 18 /min Univ [facility] Oxygen saturation in 2022-10-25 19:02:00 99 /min [facility] blood by [place] [facility] Body temperature 2022-10-25 19:00:00 37.11 Ayaka [facility] Body weight 2022-10-25 19:00:00 55.293 kg [facility] BMI 2022-10-25 19:00:00 24.62 kg/m2 [facility] Heart rate 2022-10-09 11:24:00 103 /min [facility] Respiratory rate 2022-10-09 11:24:00 15 /min Univ [facility] Oxygen saturation in 2022-10-09 11:24:00 100 /min [facility] of Arterial blood by [facility] Pulse oximetry Branch Systolic blood 2022-10-09 11:00:00 124 mm[Hg] Univer sity of pressure [facility] Diastolic blood 2022-10-09 11:00:00 76 mm[Hg] Unive rsity of pressure [facility] Body temperature 2022-10-09 10:45:00 37.33 Ayaka [facility] Body height 2022-10-09 10:45:00 149.9 cm [facility] Body weight 2022-10-09 10:45:00 52.164 kg [facility] BMI 2022-10-09 10:45:00 23.23 kg/m2 [facility] Systolic blood 2022-09-26 14:13:00 120 mm[Hg] Univer sity of pressure [facility] Diastolic blood 2022-09-26 14:13:00 78 mm[Hg] Unive rsity of pressure [facility] Heart rate 2022-09-26 14:13:00 90 /min [facility] Respiratory rate 2022-09-26 14:13:00 19 /min [facility] Oxygen saturation in 2022-09-26 14:13:00 96 /min [facility] Arterial blood by [place] [facility] Pulse oxim[facility] Body temperature 2022-09-26 13:24:00 36.06 Ayaka [facility] Body height 2022-09-24 03:15:00 149.9 cm [facility] Body weight 2022-09-24 03:15:00 52.98 kg [facility] BMI 2022-09-24 03:15:00 23.59 kg/m2 [facility] Heart rate 2022-09-09 22:00:00 108 /min [facility] Systolic blood 2022-09-09 21:11:00 123 mm[Hg] Univer sity of pressure [facility] Diastolic blood 2022-09-09 21:11:00 88 mm[Hg] Unive rsity of pressure [facility] Body temperature 2022-09-09 21:11:00 36.56 Ayaka Univ ersity of [facility] Respiratory rate 2022-09-09 21:11:00 18 /min Univ ersity of [facility] Oxygen saturation in 2022-09-09 21:11:00 96 /min [facility] Arterial blood by [place] [facility] Pulse oxim[facility] Body height 2022-09-05 02:24:00 149.9 cm [facility] Body weight 2022-09-05 02:24:00 56.7 kg [facility] BMI 2022-09-05 02:24:00 25.25 kg/m2 [facility] Systolic blood 2022-09-01 16:20:00 131 mm[Hg] Univer sity of pressure [facility] Diastolic blood 2022-09-01 16:20:00 98 mm[Hg] Unive rsity of pressure [facility] Heart rate 2022-09-01 16:20:00 87 /min [facility] Respiratory rate 2022-09-01 16:20:00 19 /min [facility] Body height 2022-09-01 16:20:00 149.9 cm [facility] Body weight 2022-09-01 16:20:00 56.7 kg [facility] BMI 2022-09-01 16:20:00 25.25 kg/m2 [facility] Oxygen saturation in 2022-09-01 16:20:00 95 /min [facility] Arterial blood by [place] [facility] Pulse oxim[facility] Respiratory rate 2022-08-19 16:47:55 16 /min [facility] Systolic blood 2022-08-19 16:00:00 128 mm[Hg] Univer sity of pressure [facility] Diastolic blood 2022-08-19 16:00:00 93 mm[Hg] Unive rsity of pressure [facility] Heart rate 2022-08-19 16:00:00 83 /min [facility] Body temperature 2022-08-19 16:00:00 37.11 Ayaka [facility] Body height 2022-08-19 16:00:00 149.9 cm [facility] Body weight 2022-08-19 16:00:00 56.7 kg [facility] BMI 2022-08-19 16:00:00 25.25 kg/m2 [facility] Oxygen saturation in 2022-08-19 16:00:00 99 /min [facility] Arterial blood by [place] [facility] Pulse o[facility] Systolic blood 2022-08-14 21:00:00 114 mm[Hg] Univer sity of pressure [facility] Diastolic blood 2022-08-14 21:00:00 76 mm[Hg] Unive rsity of pressure [facility] Heart rate 2022-08-14 21:00:00 76 /min [facility] Respiratory rate 2022-08-14 21:00:00 17 /min Univ ersity [facility] [place] [facility] Oxygen saturation in 2022-08-14 21:00:00 98 /min [facility] of Arterial blood by [place] [facility] Pulse oximetry Branch Body temperature 2022-08-14 17:30:00 37.06 Ayaka Univ [facility] [place] [facility] Body height 2022-08-14 17:30:00 170.2 cm [facility] [place] [facility] Body weight 2022-08-14 17:30:00 58.514 kg [facility] [place] [facility] BMI 2022-08-14 17:30:00 20.20 kg/m2 [facility] [place] [facility] Systolic blood 2022-07-20 14:34:00 123 mm[Hg] Univer sity of pressure [place] [facility] Diastolic blood 2022-07-20 14:34:00 85 mm[Hg] Unive rsity of pressure [facility] Heart rate 2022-07-20 14:34:00 76 /min [facility] [place] [facility] Body weight 2022-07-20 14:34:00 58.514 kg [facility] [place] [facility] BMI 2022-07-20 14:34:00 26.05 kg/m2 [facility] [place] [facility] Respiratory rate 2022-07-20 14:32:00 19 /min [facility] [place] [facility] Body height 2022-07-20 14:32:00 149.9 cm [facility] [place] [facility] Oxygen saturation in 2022-07-20 14:32:00 97 /min [facility] Arterial blood by [facility] Pulse oximetry Branch Systolic blood 2022-06-21 19:27:00 135 mm[Hg] Univer [facility]ity of [facility] Diastolic blood 2022-06-21 19:27:00 84 mm[Hg] Unive rsity of pressure [facility] Heart rate 2022-06-21 19:27:00 87 /min [facility] [place] [facility] Oxygen saturation in 2022-06-21 19:27:00 98 /min [facility] Ar[facility]ial blood by [facility] Pulse oximetry Branch Respiratory rate 2022-06-21 19:23:00 20 /min [facility] [place] [facility] Body height 2022-06-21 19:23:00 154.9 cm [facility] [place] [facility] Body weight 2022-06-21 19:23:00 57.38 kg [facility] [place] [facility] BMI 2022-06-21 19:23:00 23.90 kg/m2 [facility] [place] [facility] Systolic blood 2022-06-21 06:00:00 108 mm[Hg] Univer [facility] Diastolic blood 2022-06-21 06:00:00 71 mm[Hg] Unive rsity of [facility] Heart rate 2022-06-21 06:00:00 79 /min [facility] [place] [facility] Respiratory rate 2022-06-21 06:00:00 27 /min [facility] [place] [facility] Oxygen saturation in 2022-06-21 06:00:00 97 /min [facility] Arterial blood by [facility] Pulse oximetry [place] Body temperature 2022-06-21 02:00:00 37.44 Ayaka Univ ersity [facility] Body height 2022-06-21 02:00:00 149.9 cm Universi ty of [facility] Body weight 2022-06-21 02:00:00 56.7 kg [facility] BMI 2022-06-21 02:00:00 25.25 kg/m2 [facility] HEIGHT 2021-02-10 21:00:00 149.9 cm WEIGHT 2021-02-10 21:00:00 59.467 kg Heart rate 2022-09-09 22:00:00 108 /min [facility] Systolic blood 2022-09-09 21:11:00 123 mm[Hg] Univer sity of [facility] Diastolic blood 2022-09-09 21:11:00 88 mm[Hg] Unive rsity of pressure [facility] Body temperature 2022-09-09 21:11:00 36.56 Ayaka Univ ersity [facility] Respiratory rate 2022-09-09 21:11:00 18 /min Univ ersity [facility] Oxygen saturation in 2022-09-09 21:11:00 96 /min [facility] Arter[facility] blood by [facility] Pulse oximetry [place] Body height 2022-09-05 02:24:00 149.9 cm [facility]i [facility] of [facility] Body weight 2022-09-05 02:24:00 56.7 kg [facility] BMI 2022-09-05 02:24:00 25.25 kg/m2 [facility] Oxygen saturation in 2021-03-18 20:00:00 97 /min [facility] Arterial blood by Pulse oximetry Systolic blood 2021-03-18 17:24:48 132 mm[Hg] Method ist [facility] pressure Diastolic blood 2021-03-18 17:24:48 72 mm[Hg] Metho dist [facility] pressure Heart rate 2021-03-18 17:24:48 96 /min [facility] Body temperature 2021-03-18 17:24:48 37 [facility]aka [facility] Res[facility] rate 2021-03-18 17:24:48 14 /min [facility] Body height 2021-03-18 01:37:00 149.9 cm [facility] Body weight 2021-03-18 00:09:00 58.968 kg [facility] BMI 2021-03-18 00:09:00 26.26 kg/m2 [facility] Systolic blood 2021-02-12 12:00:00 101 mm[Hg] [facility] Diastolic blood 2021-02-12 12:00:00 72 mm[Hg] [facility] Heart rate 2021-02-12 12:00:00 93 /min [facility] Respiratory rate 2021-02-12 12:00:00 18 /min [facility] Oxygen saturation in 2021-02-12 12:00:00 96 /min [facility] Arterial blood by Medical Ce nter Pulse oximetry Body temperature 2021-02-12 11:00:00 37.56 Ayaka [facility] Body height 2021-02-11 10:15:00 149.9 cm [facility] Body weight 2021-02-11 10:15:00 59.5 kg [facility] BMI 2021-02-11 10:15:00 26.48 kg/m2 [facility] Procedures Procedure Date / Time Performing Source Performed Clinician URINALYSIS 2023-01-25 [facility] 22:23:00 Medical Branch LIPASE 2023-01-25 [facility] 22:19:00 [facility] HEPATIC FUNCTION PANEL 2023-01-25 [facility] ([id number]) (ALB,T.PRO,BILI 22:19:00 Medical Branch T,BU/BC,ALT,AST,ALK PHOS) BASIC METABOLIC PANEL (NA, K, 2023-01-25 [facility] CL, CO2, GLUCOSE, BUN, 22:19:00 Medical B ranch CREATININE, [place]) CBC WITH DIFF 2023-01-25 [facility] 22:19:00 Medical Branch CONSENT/REFUSAL FOR DIAGNOSIS 2023-01-25 Doctor Unassigned, [facility] AND TREATMENT 20:55:07 [facility] GAMMA GLUTAMYLTRANSFERASE 2023-01-25 [facility] 10:[facility]00 [facility] LIPASE 2023-01-25 [facility] 10:00:00 [facility] HEPATIC FUNCTION PANEL 2023-01-25 [facility] ([id number]) (ALB,T.PRO,BILI 10:00:00 [facility] T,BU/BC,ALT,AST,ALK PHOS) BASIC METABOLIC PANEL (NA, K, 2023-01-25 [facility] CL, CO2, GLUCOSE, BUN, 10:00:00 [facility] ranch CREATININE, CA) CBC WITH DIFF 2023-01-25 [facility] 10:00:00 [facility] PROTHROMBIN TIME / INR 2023-01-25 [facility] 10:00:00 [facility] ACTIVATED PARTIAL THRMPLAS 2023-01-25 Nadia [facility] PANDA 10:00:00 [facility] CONSENT/REFUSAL FOR DIAGNOSIS 2023-01-25 Doctor Unasslisa, [facility] AND TREATMENT 08:22:23 [facility] CBC WITH DIFF 2023-01-24 Lillie Garcia [facility] 05:56:00 [facility] COMP. METABOLIC PANEL ([id number]) 2023-01-24 Lillie Garcia [facility] 05:18:00 [facility] URINALYSIS 2023-01-24 Andie Kurtz [facility] exas 03:16:00 [facility] RAPID INFLUENZA A/B 2023-01-24 Andie Kurtz [facility] 03:10:00 [facility] COVID-19 (ID NOW RAPID 2023-01-24 Andie Kurtz [facility] TESTING) 03:10:00 Medical Branch CONSENT/REFUSAL FOR DIAGNOSIS 2023-01-24 Doctor Unasameer, [facility] AND TREATMENT 02:44:12 [facility] XR HIPS 2 VW RIGHT 2023-01-11 Andie Kurtz [facility] 02:19:41 Medical Branch XR TIBIA FIBULA 2 VW RIGHT 2023-01-11 Andie Kurtz [facility] 02:19:41 Medical Branch ASSIGNMENT OF BENEFITS 2023-01-11 [facility] 02:11:38 [facility] CONSENT/REFUSAL FOR DIAGNOSIS 2023-01-11 Doctor Unassigned, [facility] AND TREATMENT 01:02:05 [facility] TROPONIN I 2022-12-23 [facility]z [facility] 10:44:00 Medical Branch LIPASE 2022-12-23 [facility] 08:52:00 Medical Branch TROPONIN I 2022-12-23 [facility] 08:52:00 Medical Branch COMP. METABOLIC PANEL ([id number]) 2022-12-23 Andie Kurtz [facility] 08:52:00 Medical Branch CBC WITH DIFF 2022-12-23 [facility] 08:52:00 Medical Branch CONSENT/REFUSAL FOR DIAGNOSIS 2022-12-23 Doctor Unassigned, [facility] AND TREATMENT 08:05:01 [facility] INSURANCE CORRESPONDENCE 2022-12-19 Doctor Unassigned, [facility] 05:01:00 [facility] MEDICATION CORRESPONDENCE 2022-12-16 Doctor Unassigned, [facility] 05:01:00 [facility] XR CHEST 1 VW 2022-12-06 [facility] 17:17:08 [facility]OPONIN I 2022[facility]12-06 [facility] 17:09[facility]00 [facility] COMP. METABOLIC PANEL ([id number]) 2022-12-06 [facility] 17:09:00 [facility] CBC WITH DIFF 2022-12-06 [facility] 17:09:00 [facility] [place] [address] SOFT TISSUE NECK W 2022-12-06 Natali Montes [facility] CONTRAST 16:25:00 Medical Branch CONSENT/REFUSAL FOR DIAGNOSIS 2022-12-06 Doctor Unassigned, [facility] AND TREATMENT 15:33:25 [facility] ASSIGNMENT OF BENEFITS 2022-12-06 [facility] 15:31:39 [facility] PATIENT FINANCIAL POLICY 2022-12-01 Doctor Unassigned, [facility] 15:21:37 [facility] CONSENT/REFUSAL FOR DIAGNOSIS 2022-11-23 Doctor Unassigned, [facility] AND TREATMENT 07:55:51 [facility] CBC WITH DIFF 2022-11-18 Teqwimuah, [facility] 14:19:00 Medical Branch CBC WITH DIFF 2022-11-18 [place], [facility] xas 14:19:00 Medical Branch EKG-12 LEAD 2022-11-18 [facility], [facility] 00:32:20 Medical Branch ELECTROPHYSIOLOGY PROCEDURE 2022-11-17 [facility], [facility] 23:59:04 Medical Branch CATH PROCEDURE LOG 2022-11-17 [facility], [facility] 22:55:00 Medical [facility] CATH PROCEDURE LOG 2022-11-17 [facility], [facility] 22:55:00 Medical Branch HB ECG ROUTINE & RHYTHM STRIP 2022-11-17 [facility] 19:25:18 Medical Branch HB ECG ROUTINE & RHYTHM STRIP 2022-11-17 [facility] 19:25:18 Medical Branch ASSIGNMENT OF BENEFITS 2022-11-17 Doctor [facility] 18:40:46 [facility] CONSENT/REFUSAL FOR DIAGNOSIS 2022-10-25 Doctor Unassigned, [facility] AND TREATMENT 18:43:16 [facility] ASSIGNMENT OF BENEFITS 2022-10-25 [facility] 18:42:45 [facility] CONSENT/REFUSAL FOR DIAGNOSIS 2022-10-09 Doctor Unassigned, [facility] AND TREATMENT 10:40:53 [facility] TROPONIN I 2022-09-25 Germaine Kumari [facility] 11:07:00 Medical Branch BASIC METABOLIC PANEL (NA, K, 2022-09-25 Stuart Arevalo Un [facility] CL, CO2, GLUCOSE, BUN, 11:07:00 Medical B ranch CREATININE, CA) CBC WITH DIFF 2022-09-25 Irina [facility] xas 11:07:00 Medical Branch HB ECG ROUTINE & RHYTHM STRIP 2022-09-25 Germaine Kumari [facility] 05:58:20 Medical Branch TROPONIN I 2022-09-25 Germaine Kumari [facility] 05:55:00 [facility] POCT GLUCOSE (AUTOMATED) 2022-09-25 Irina Stuart [facility] 02:58:00 Medical Branch PHOSPHORUS 2022-09-24 Germaine Kumari [facility] 11:11:00 [facility] MAGNESIUM 2022-09-24 Germaine Kumari [facility] 11:11:00 [facility] BASIC METABOLIC PANEL (NA, K, 2022-09-24 Germaine Kumari [facility] CL, CO2, GLUCOSE, BUN, 11:11:00 Medical ran CREATININE, CA) CBC WITH DIFF 2022-09-24 Germaine Kumari [facility] 11:11:00 [facility] HB ECG ROUTINE & RHYTHM STRIP 2022-09-24 Vladislav Logan [facility] 00:26:14 [facility] XR CHEST 2 VW 2022-09-23 Vladislav Logan [facility] 23:14:12 [facility] TROPONIN I 2022-09-23 Vladislav Logan [facility] 23:08:00 [facility] COMP. METABOLIC PANEL ([id number]) 2022-09-23 Vladislav Logan [facility] 23:08:00 [facility] CBC WITH DIFF 2022-09-23 Vladislav Logan [facility] 23:08:00 [facility] THROAT CULTURE 2022-09-23 Vladislav Logan [facility] 23:08:00 [facility] RAPID STREP SCREEN FOR GROUP 2022-09-23 Vladislav Logan U [facility] A 23:08:00 Medical Branch RAPID INFLUENZA A/B 2022-09-23 Vladislav Logan [facility] 23:08:00 [facility] COVID-19 (ID NOW RAPID 2022-09-23 Vladislav Logan [facility] TESTING) 23:08:00 Medical Branch CONSENT/REFUSAL FOR DIAGNOSIS 2022-09-23 Doctor Unassigned, [facility] AND TREATMENT 22:09:44 [facility] MR BRAIN WO CONTRAST 2022-09-09 [facility], [facility] 20:42:35 [facility] MR BRAIN WO CONTRAST 2022-09-09 [facility] 20:42:35 [facility] MR CERVICAL SPINE WO CONTRAST 2022-09-09 Jenny Jean-Baptiste [facility] [place] 20:41:11 [facility] MR CERVICAL SPINE WO CONTRAST 2022-09-09 Jenny [facility]aptiste [facility] [place] 20:41:11 [facility] BASIC METABOLIC PANEL (NA, K, 2022-09-09 Jenny Jean-Baptiste [facility] [place] CL, CO2, GLUCOSE, BUN, 06:08:00 [facility] B ranch CREATININE, CA) BASIC METABOLIC PANEL (NA, K, 2022-09-09 Jenny Jean-Baptiste [facility] [place] CL, CO2, GLUCOSE, BUN, 06:08:00 [facility] CREATININE, CA) BASIC METABOLIC PANEL (NA, K, 2022-09-08 Jenny Jean-Baptiste [facility] [place] CL, CO2, GLUCOSE, BUN, 09:33:00 [facility] CREATININE, CA) BASIC METABOLIC PANEL (NA, K, 2022-09-08 Jenny Jean-Baptiste [facility] [place] CL, CO2, GLUCOSE, BUN, 09:33:00 [facility] CREATININE, CA) BASIC METABOLIC PANEL (NA, K, 2022-09-07 Jenny Jean-Baptiste [facility] [place] CL, CO2, GLUCOSE, BUN, 09:38:00 [facility] CREATININE, CA) LIPID PANEL ([id number])(TOTAL 2022-09-07 Zakia Babcock [facility] [place] CHOLESTEROL, TRIGLYCERIDES, 09:38:00 [facility] HDL) BASIC METABOLIC PANEL (NA, K, 2022-09-07 Jenny [facility]-Baptiste [facility] [place] CL, CO2, GLUCOSE, BUN, 09:38:00 [facility] B ranch CREATININE, CA) LIPID PANEL ([id number])(TOTAL 2022-09-07 [facility] CHOLESTEROL, TRIGLYCERIDES, 09:38:00 [facility] HDL) [place] MODIFIED BARIUM SWALLOW 2022-09-06 [facility] 20:15[facility]00 [facility] Medical Branch [place] MODIFIED BARIUM SWALLOW 2022-09-06 [facility] 20:15:00 [facility] TRANSTHORACIC ECHO (TTE) 2022-09-06 [facility] COMPLETE 16:43:24 [facility] TRANSTHORACIC ECHO (TTE) 2022-09-06 [facility] COMPLETE 16:43:24 [facility] BASIC METABOLIC PANEL (NA, K, 2022-09-06 Jenny [facility], CO2, GLUCOSE, BUN, 09:55:00 Medical B ran CREATININE, CA) LIPID PANEL ([id number])(TOTAL 2022-09-06 [facility] CHOLESTEROL, TRIGLYCERIDES, 09:55:00 [facility] HDL) EXTRA TUBE LAV 2022-09-06 Alfredo Echavarria [facility] x[facility] 09:55:00 Medical Branch BASIC METABOLIC PANEL (NA, K, 2022-09-06 Jenny Jean-Baptiste Un [facility] CL, CO2, GLUCOSE, BUN, 09:55:00 Medical B ran CREATININE, CA) LIPID PANEL ([id number])(TOTAL 2022-09-06 [facility] CHOLESTEROL, TRIGLYCERIDES, 09:55:00 [facility] HDL) EXTRA TUBE LAV 2022-09-06 Alfredo Echavarria [facility] xa 09:55:[address] STROKE HEAD WO CONTRAST 2022-09-06 Alfredo Echavarria [facility] 02:53:[address] STROKE ANGIOGRAM HEAD 2022-09-06 Alfredo Echavarria [facility] 02:53:[address] STROKE ANGIOGRAM NECK 2022-09-06 Alfredo Echavarria [facility] 02:53:[address] STROKE HEAD WO CONTRAST 2022-09-06 Alfredo Echavarria [facility] 02:53:[address] STROKE ANGIOGRAM HEAD 2022-09-06 Alfredo Echavarria [facility] 02:53:[address] STROKE ANGIOGRAM NECK 2022-09-06 Alfredo Echavarria [facility] 02:53:00 Medical Branch POCT GLUCOSE (AUTOMATED) 2022-09-06 Andie Kurtz [facility] 02:05:00 Medical Branch POCT GLUCOSE (AUTOMATED) 2022-09-06 Andie Kurtz [facility] 02:05:00 Medical Branch TROPONIN I 2022-09-06 Alfredo Echavarria [facility] 02:04:00 Medical Branch BASIC METABOLIC PANEL (NA, K, 2022-09-06 Alfredo Echavarria Un [facility] CL, CO2, GLUCOSE, BUN, 02:04:00 Medical B ranch CREATININE, CA) CBC WITHOUT DIFF 2022-09-06 Alfredo Echavarria [facility] ex 02:04:00 Medical Branch PROTHROMBIN TIME / INR 2022-09-06 Alfredo Echavarria [facility] 02:04:00 Medical Branch ACTIVATED PARTIAL THRMPLAS 2022-09-06 Alfredo Echavarria [facility] PANDA 02:04:00 Medical Branch EXTRA TUBE SST 2022-09-06 Alfredo Echavarria [facility] 02:04:00 Medical Branch PROTHROMBIN TIME / INR 2022-09-06 Alfredo Echavarria [facility] 02:04:00 Medical Branch ACTIVATED PARTIAL THRMPLAS 2022-09-06 Alfredo Echavarria [facility] PANDA 02:04:00 Medical Branch CBC WITHOUT DIFF 2022-09-06 Alfredo Echavarria [facility] ex 02:04:00 Medical Branch TROPONIN I 2022-09-06 Alfredo Echavarria [facility] 02:04:00 Medical Branch BASIC METABOLIC PANEL (NA, K, 2022-09-06 Alfredo Echavarria [facility] CL, CO2, GLUCOSE, BUN, 02:04:00 Medical B ranch CREATININE, CA) EXTRA TUBE SST 2022-09-06 Alfredo Echavarria [facility] 02:04:00 [facility]YSIS 2022-09-05 [facility]05 De [facility] 21:13:00 [facility] URINE DRUG (IMMUNOASSAY) - 2022-09-05 [facility] COMPREHENSIVE DR[facility] SCREEN 21:12:00 [facility] URINE DRUG (IMMUNOASSAY) - 2022-09-05 [facility] COMPREHENSIVE DRUG SCREEN 21:12:00 [facility] KEPPRA (LEVETIRACETAM) 2022-09-05 [facility] 17[facility]37[facility]00 [facility] KEPPRA (LEVETIRACETAM) 2022-09-05 [facility] 17:37:00 [facility] POCT GLUCOSE (AUTOMATED) 2022-09-05 And[facility]z [facility] 07:26:00 [facility] POCT GLUCOSE (AUTOMATED) 2022-09-05 Andie [facility]z [facility] 07:26:[address] CERVICAL SPINE WO CONTRAST 2022-09-05 Andie Kurtz [facility] 03:14:[address] HEAD WO CONTRAST 2022-09-05 Andie Kurtz [facility] 03:14:[address] HEAD WO CONTRAST 2022-09-05 Andie Kurtz [facility] 03:14:[address] CERVICAL SPINE WO CONTRAST 2022-09-05 Andie Kurtz [facility] 03:14:15 [facility] MAGNESIUM 2022-09-05 [facility]z [facility] 03:14:00 [facility] COMP. METABOLIC PANEL ([id number]) 2022-09-05 Andie Kurtz [facility] 03:14:00 [facility] CBC WITH DIFF 2022-09-05 Andie Kurtz [facility] ex 03:14:00 [facility] URINALYSIS 2022-09-05 Andie Kurtz [facility] ex 03:14:00 [facility]INALYSIS 2022-09-05 [place] 03[facility] CBC WITH DIFF 2022-09-05 [facility] 03:14:00 Medical Branch COMP. METABOLIC PANEL ([id number]) 2022-09-05 [facility] 03:14:00 Medical Branch MAGNESIUM 2022-09-05 [facility] 03:14:00 Medical Branch XR CHEST 1 VW 2022-09-05 [facility] 03:02:19 Medical Branch XR CHEST 1 2022-09-05 [facility] 03:02:19 Medical Branch HB ECG ROUTINE & RHYTHM STRIP 2022-09-05 [facility] 02:28:28 Medical Branch HB ECG ROUTINE & RHYTHM STRIP 2022-09-05 [facility] 02:28:28 Medical Branch CONSENT/REFUSAL FOR DIAGNOSIS 2022-09-05 Doctor Unassigned, [facility] AND TREATMENT 02:12:26 [facility] [place] CONSENT/REFUSAL FOR DIAGNOSIS 2022-09-05 Doctor Unassigned, [facility] AND TREATMENT 02:12:26 [facility] ELECTROENCEPHALOGRAM 2022-09-05 [facility] 00:00:00 [facility] ELECTROENCEPHALOGRAM 2022-09-05 [facility] 00:00:00 [facility] HOSPITAL ADMISSION 2022-09-04 Doctor Unassigned, [facility] 06:01:00 [facility] HOSPITAL ADMISSION 2022-09-04 Doctor Unassigned, [facility] 06:01:00 [facility] DME/SUPPLY JUSTIFICATION 2022-08-25 Doctor Unassigned, [facility] 06:01:00 [facility] DME/SUPPLY JUSTIFICATION 2022-08-24 Doctor Unassigned, [facility] 06:01:00 [facility] XR CHEST 1 VW 2022-08-19 Radha Abrams [facility] 16:52:46 Medical Branch XR CHEST 1 2022-08-19 Radha Abrams [facility] 16:52:46 Medical Branch CONSENT/REFUSAL FOR DIAGNOSIS 2022-08-19 Doctor Unassigned, [facility] AND TREATMENT 16:18:34 [facility] CONSENT/REFUSAL FOR DIAGNOSIS 2022-08-19 Doctor Unassigned, [facility] AND TREATMENT 16:18:34 [facility] EMERGENCY SERVICES AGREEMENTS 2022-08-19 Doctor Elizabethsslisa, [facility] AND AUTHORIZATIONS 06:01:00 [facility] DME/SUPPLY JUSTIFICATION 2022-08-17 Doctor Unassigned, [facility] 06:01:00 [facility] DME/SUPPLY JUSTIFICATION 2022-08-17 Doctor Unassigned, [facility] 06:01:00 [facility] LIPASE 2022-08-14 Radha Abrams [facility] 19:41:00 Medical Branch COMP. METABOLIC PANEL ([id number]) 2022-08-14 Radha Abrams [facility] 19:41:00 Medical Branch COMP. METABOLIC PANEL ([id number]) 2022-08-14 Radha Abrams [facility] 19:41:00 Medical Branch LIPASE 2022-08-14 Radha Abrams [facility] 19:41:00 Medical Branch URINALYSIS 2022-08-14 Radha Abrams [facility] 19:22:00 Medical Branch URINALYSIS 2022-08-14 Radha Abrams [facility] 19:22:[address] ABDOMEN PELVIS WO CONTRAST 2022-08-14 Radha Abrams [facility] 19:00:[address] ABDOMEN PELVIS WO CONTRAST 2022-08-14 Radha Abrams [facility] 19:00:08 Medical Branch CBC WITH DIFF 2022-08-14 Radha Abrams [facility] 18:42:00 [facility] Branch CBC WITH DIFF 2022-08-14 Radha Abrams [facility] 18:42:00 Medical Branch CONSENT/REFUSAL FOR DIAGNOSIS 2022-08-14 Doctor Hang, [facility] AND TREATMENT 17:16:04 [facility] CONSENT/REFUSAL FOR DIAGNOSIS 2022-08-14 Doctor Elizabethsslisa, [facility] AND TREATMENT 17:16:04 [facility] EMERGENCY SERVICES AGREEMENTS 2022-08-14 Doctor Hang, [facility] AND AUTHORIZATIONS 06:01:00 [facility] DME/SUPPLY JUSTIFICATION 2022-08-03 Doctor Unassigned, [facility] 06:01:00 [facility] DME/SUPPLY JUSTIFICATION 2022-08-03 Doctor Unassigned, [facility] 06:01:00 [facility] CARDIAC DEVICE CHECK - NURSE 2022-07-21 Mario Trinidad [facility] - PROGRAMMING DUAL LEAD 16:45:00 Medical Branch PACEMAKER DME/SUPPLY JUSTIFICATION 2022-07-20 Doctor Unassigned, [facility] 05:[facility]00 [facility] MEDICATION CORRESPONDENCE 2022-07-11 Doctor Unassigned, [facility] 05:01[facility]00 [facility] MEDICATION CORRESPONDENCE 2022-07-06 Doctor Unassigned, [facility] versity [facility] 05:01:00 [facility] MEDICATION CORRESPONDENCE 2022-07-06 Doctor Unassigned, [facility] 05:01:00 [facility] URINALYSIS 2022-06-21 Chevy Martin [facility] 05:40:00 Medical Branch URINALYSIS 2022-06-21 Chevy Martin [facility] 05:40:00 Medical Branch TROPONIN I 2022-06-21 Chevy Martin [facility] 05:09:00 Medical Branch TROPONIN I 2022-06-21 Chevy Martin [facility] 05:09:00 Medical Branch XR CHEST 1 VW 2022-06-21 Chevy Martin [facility] 04:02:08 Medical Branch XR CHEST 1 VW 2022-06-21 Chevy Martin [facility] 04:02:08 Medical Branch MAGNESIUM 2022-06-[address] [facility] xa 02:44:00 Medical Branch TROPONIN I 2022-06-21 Chevy Martin [facility] 02:44:00 Medical Branch COMP. METABOLIC PANEL ([id number]) 2022-06-21 Chevy Martin [facility] 02:44:00 Medical Branch CBC WITH DIFF 2022-06-21 Chevy Martin Bita [facility] 02:44:00 Medical Branch N-TERMINAL PRO-BNP 2022-06-21 Chevy Martin Bita [facility] 02:44:00 Medical Branch N-TERMINAL PRO-BNP 2022-06-21 Chevy Martin [facility] 02:44:00 Medical Branch CBC WITH DIFF 2022-06-21 Chevy Maritn [facility] 02:44:00 Medical Branch COMP. METABOLIC PANEL ([id number]) 2022-06-21 [facility] 02:[facility] MAGNESIUM 2022-06-21 Chevy Martin [facility] 02:44:00 Medical Branch TROPONIN I 2022-06-21 Chevy Martin [facility] 02:44:00 Medical Branch HB ECG ROUTINE & RHYTHM STRIP 2022-06-21 [facility] 02:05[facility]39 [facility] Branch CONSENT/REFUSAL FOR DIAGNOSIS 2022-06-21 Doctor Unassigned, [facility] AND TREATMENT 01:51:06 [facility] CONSENT/REFUSAL FOR DIAGNOSIS 2022-06-21 Doctor Unassigned, [facility] AND TREATMENT 01:51:06 [facility] EMERGENCY SERVICES AGREEMENTS 2022-06-20 Doctor Unassigned, [facility] AND AUTHORIZATIONS 05:01:00 [facility] MEDICATION CORRESPONDENCE 2022-06-16 Doctor Unassigned, Uni versity [facility] 05:01:00 [facility] MEDICATION CORRESPONDENCE 2022-06-16 Doctor Unassigned, Uni versity [facility] 05:01:00 [facility] MEDICATION CORRESPONDENCE 2022-06-15 Doctor Unassigned, Uni versity [facility] 05:01:00 [facility] MEDICATION CORRESPONDENCE 2022-06-15 Doctor Unassigned, [facility] versity [facility] 05:01:00 [facility] MEDICATION CORRESPONDENCE 2022-06-14 Doctor Unassigned, [facility] [place] 05:01:00 [facility] MEDICATION CORRESPONDENCE 2022-06-14 Doctor Unassigned, Uni versity [facility] 05:01:00 [facility] REFERRAL- REQUEST/RESPONSE 2022-05-31 Doctor Unassigned, [facility] [place] 05:01:00 [facility] MEDICATION CORRESPONDENCE 2022-05-26 Doctor Unassigned, Uni versity [facility] 05:01:00 [facility] POC GLUCOSE 2021-03-18 [facility] 17:31:00 ECG 12-LEAD 2021-03-18 Laeeq, [facility] 17:28:01 TROPONIN 2021-03-18 Laeeq, [facility] 16:41:00 TTE COMPLETE, WO CONTRAST, W 2021-03-18 Laeeq, [facility] DOPPLER ([id number]) 14:19:12 POC GLUCOSE 2021-03-18 Laeeq, [facility] 13:14:00 HC COMPLETE BLD COUNT W/AUTO 2021-03-18 Laeeq, [facility] DIFF 10:00:00 COMPREHENSIVE METABOLIC PANEL 2021-03-18 [facility] 10:00:00 MAGNESIUM LEVEL 2021-03-18 Laeeq, [facility] 10:00:00 PHOSPHORUS LEVEL 2021-03-18 Laeeq, [facility] pital 10:00:00 LIPID PANEL 2021-03-18 Laeeq, [facility] 10:00:00 HEMOGLOBIN A1C 2021-03-18 Laeeq, [facility] 10:00:00 ESTIMATED GFR 2021-03-18 Laeeq, [facility] 10:00:00 URINE CULTURE 2021-03-18 Laeeq, [facility] 06:12:00 LEGIONELLA URINARY ANTIGEN 2021-03-18 [facility], [facility] 05:36:00 STREPTOCOCCUS PNEUMONIAE 2021-03-18 [facility], [facility] URINARY ANTIGEN 05:36:00 URINALYSIS SCREEN AND 2021-03-18 [facility], [facility] MICROSCOPY, WITH REFLEX TO 05:36:00 CULTURE BLOOD CULTURE, AEROBIC & 2021-03-18 [facility], [facility] ANAEROBIC 04:35:00 BLOOD CULTURE, AEROBIC & 2021-03-18 [facility], [facility] ANAEROBIC 04:25:00 DIGOXIN LEVEL 2021-03-18 Laeeq, [facility] 04:24:00 TROPONIN 2021-03-18 [facility] 04:24:00 LACTIC ACID LEVEL, SEPSIS - 2021-03-18 Lae, [facility] NOW AND REPEAT 2X EVERY 3 04:24:00 HOURS POC GLUCOSE 2021-03-18 Violeteq, [facility] 01:38:00 ARTERIAL BLOOD GAS 2021-03-18 [facility] 01:10:00 US DUPLEX VENOUS LOWER 2021-03-18 Laeeq, [facility] EXTREMITY BILATERAL 01:00:06 LACTIC ACID LEVEL, SEPSIS - 2021-03-17 Lae, [facility] NOW AND REPEAT 2X EVERY 3 23:47:00 HOURS TROPONIN 2021-03-17 [facility], [facility] 23:47:00 XR CHEST 1 VW PORTABLE 2021-03-17 [facility] 21:20:18 HC COMPLETE BLD COUNT W/AUTO 2021-03-17 Hector Alvarez [facility] DIFF 21:05:00 LACTIC ACID LEVEL, SEPSIS - 2021-03-17 [facility], [facility] NOW AND REPEAT 2X EVERY 3 21:05:00 HOURS COMPREHENSIVE METABOLIC PANEL 2021-03-17 AlvarezHector [facility] 21:05:00 TROPONIN 2021-03-17 [facility], [facility] 21:05:00 B NATRIURETIC PEPTIDE 2021-03-17 [facility] 21:05:00 D-DIMER 2021-03-17 [facility] 21:05:00 ESTIMATED GFR 2021-03-17 [facility] 21:05:00 ECG ED PRELIMINARY 2021-03-17 [facility] 20:36:46 ECG 12-LEAD 2021-03-17 [facility] 20:19:38 BASIC METABOLIC PANEL (7) 2021-02-[address] [facility] 05:34:00 [facility] MAGNESIUM 2021-02-[address] [facility] 05[facility]34:00 [facility] Center PHOSPHORUS 2021-02-[address] [facility] 05:34:00 Medical Center CBC W/PLT COUNT & AUTO 2021-02-[address] [facility] DIFFERENTIAL 04:48:00 Medical Center MR BRAIN WITHOUT IV CONTRAST 2021-02-11 Naina, Igor Garcia [facility] 16:08:00 Medical Center MRA HEAD WITHOUT IV CONTRAST 2021-02-11 Chew, Igor Garcia [facility] 16:07:00 Medical Center MRA NECK WITHOUT IV CONTRAST 2021-02-11 Chew, Igor Garcia [facility] 16:07:00 Medical Center RAPID DRUG SCREEN, URINE 2021-02-[address] [facility] 03:05:00 Medical Center URINALYSIS WITH MICROSCOPIC 2021-02-[address] [facility] IF INDICATED 03:05:00 Medical Center URINALYSIS MICROSCOPIC 2021-02-[address] [facility] 03:05:00 [facility] HOMOCYSTEINE 2021-02-[address] [facility] 02:46:00 [facility] RPR 2021-02-[address] [facility] 02:46:00 Medical Center TSH/FREE T4 IF INDICATED 2021-02-[address] [facility] 02:46:00 [facility] VITAMIN B12 AND FOLATE 2021-02-[address] [facility] 02:46:00 Medical Center CBC W/PLT COUNT & AUTO 2021-02-[address] [facility] DIFFERENTIAL 02:46:00 Medical Center BASIC METABOLIC PANEL (7) 2021-02-[address] [facility] 02:46:00 Medical Center MAGNESIUM 2021-02-[address] [facility] 02:46:00 Medical Center PHOSPHORUS 2021-02-[address] [facility] 02:46:00 Medical Center C-REACTIVE PROTEIN 2021-02-[address] [facility] 02:46:00 [facility] Center DIGOXIN LEVEL 2021-02-[address] [facility] 02:46:00 Medical Center XR CHEST 1 VIEW PORTABLE / 2021-02-[address] [facility] BEDSIDE 22:20:00 [facility] POCT-GLUCOSE METER 2021-02-[address] [facility] 21:28:00 [facility] LIPID PANEL 2021-02-[address] [facility] 21:22:00 [facility] CREATINE KINASE (CK) 2021-02-[address] [facility] 21:21:00 [facility] HEMOGLOBIN A1C 2021-02-[address] [facility] 21:21:00 [facility] CBC W/PLT COUNT & AUTO 2021-02-[address] [facility] DIFFERENTIAL 21:21:00 [facility] COMPREHENSIVE METABOLIC PANEL 2021-02-[address] [facility] 21:21:00 [facility] PROTHROMBIN TIME/INR 2021-02-[address] [facility] 21:21:00 [facility] APTT 2021-02-[address] [facility] 21:21:00 [facility] MAGNESIUM 2021-02-[address] [facility] 21:21:00 [facility] PHOSPHORUS 2021-02-[address] [facility] 21:21:00 [facility] HIGH SENSITIVITY TROPONIN I 2021-02-[address] [facility] 21:21:00 [facility] B-TYPE NATRIURETIC FACTOR 2021-02-[address] [facility] (BNP[facility] 21:21:00 [facility] LACTIC ACID, VENOUS 2021-02-[address] [facility] 21:21:00 [facility] ARRYTHMIA IMPLANT REPORT - 2021-02-10 Provider, Default [facility] SCAN 00:00:[address] [facility] Plan of Care Planned Activity Planned Date Details Comments Source Future Scheduled 2023-05-[address] [facility] Test 00:00:00 (Season Ended) [code = [facility] INFLUENZA VACCINE (Season Ended)] Future Scheduled 2023-02-02 Screening for [facility] Test 09:26:53 malignant neoplasm of cervix (procedure) [code = 475802838] Future Scheduled 2023-02-02 COVID-19 VACCINE (3 - [facility] Test 09:26:53 Booster for Moderna series) [code = COVID-19 VACCINE (3 - Booster for Moderna series)] Future Scheduled 2023-02-02 [facility] Test 09:26:53 SCREENING [code = BREAST CANCER SCREENING] Future Scheduled 2023-02-02 INFLUENZA VACCINE [facility] Test 09:26:53 [code = INFLUENZA VACCINE] Future Scheduled 2022-09-25 DEPRESSION SCREENING [facility] Test 00:00:00 (12+) [code = [facility] DEPRESSION SCREENING (12+)] Future Scheduled 2022-07-21 HEPATITIS B VACCINES Met [facility] Test 10:47:20 (1 of 3 - 3-dose series) [code = HEPATITIS B VACCINES (1 of 3 - 3-dose series)] Future Scheduled 2022-07-21 Screening for [facility] Test 10:47:20 malignant neoplasm of cervix (procedure) [code = 831952862] Future Scheduled 2022-07-21 COVID-19 VACCINE (3 - [facility] Test 10:47:20 Booster for Moderna series) [code = COVID-19 VACCINE (3 - Booster for Moderna series)] Future Scheduled 2022-07-21 BREAST CANCER [facility] Test 10:47:20 SCREENING [code = BREAST CANCER SCREENING] Future Scheduled 2022-07-21 INFLUENZA VACCINE [facility] Test 10:47:20 [code = INFLUENZA VACCINE] Future Scheduled 2022-06-01 HEPATITIS B VACCINES Met [facility] Test 10:41:01 (1 of 3 - 3-dose series) [code = HEPATITIS B VACCINES (1 of 3 - 3-dose series)] Future Scheduled 2022-06-01 Screening for [facility] Test 10:41:01 malignant neoplasm of cervix (procedure) [code = 568925405] Future Scheduled 2022-06-01 BREAST CANCER [facility] Test 10:41:01 SCREENING [code = BREAST CANCER SCREENING] Future Scheduled 2022-06-01 COVID-19 VACCINE (3 - [facility] Test 10:41:01 Booster for Moderna series) [code = COVID-19 VACCINE (3 - Booster for Moderna series)] Future Scheduled 2022-06-01 INFLUENZA VACCINE Method [facility] Test 10:41:01 [code = INFLUENZA VACCINE] Future Scheduled 2022-05-27 HEPATITIS B VACCINES Met [facility] Test 14:45:07 (1 of 3 - 3-dose series) [code = HEPATITIS B VACCINES (1 of 3 - 3-dose series)] Future Scheduled 2022-05-27 Screening for [facility] Test 14:45:07 malignant neoplasm of cervix (procedure) [code = 667000042] Future Scheduled 2022-05-27 BREAST CANCER [facility] Test 14:45:07 SCREENING [code = BREAST CANCER SCREENING] Future Scheduled 2022-05-27 COVID-19 VACCINE (3 - [facility] Test 14:45:07 Booster for Moderna series) [code = COVID-19 VACCINE (3 - Booster for Moderna series)] Future Scheduled 2022-05-27 INFLUENZA VACCINE [facility] Test 14:45:07 [code = INFLUENZA VACCINE] [...] Future Scheduled 2022-05-19 HEPATITIS B VACCINES Met [facility] Test 06:25:27 (1 of 3 - 3-dose series) [code = HEPATITIS B VACCINES (1 of 3 - 3-dose series)] Future Scheduled 2022-05-19 Screening for [facility] Test 06:25:27 malignant neoplasm of cervix (procedure) [code = 440267118] Future Scheduled 2022-05-19 BREAST CANCER [facility] Test 06:25:27 SCREENING [code = BREAST CANCER SCREENING] Future Scheduled 2022-05-19 COVID-19 VACCINE (3 - [facility] Test 06:25:27 Booster for Moderna series) [code = COVID-19 VACCINE (3 - Booster for Moderna series)] Future Scheduled 2022-05-19 INFLUENZA VACCINE [facility] Test 06:25:27 [code = INFLUENZA [...] Medical Ce nter VACCINE (#1)] Future Scheduled 2021-04-05 COVID-19 VACCINE (3 [facility] Booster for Moderna [facility] series) [code = COVID-19 VACCINE (3 - Booster for Moderna series)] Future Scheduled 2020-09-[address] [...] Medica l Center cervix (procedure) [code = 742597782] Future Scheduled [address] [facility] [facility] Test 00:00:00 malignant neoplasm of Medica l Center cervix (procedure) [code = 285954951] Future Scheduled [address] [facility] Test 00:00:00 malignant neoplasm of [facility] Center cervix (procedure) [code = 213532984] Future Scheduled [address] [facility] Test 00:00:00 malignant neoplasm of [facility]ica l Center cervix (procedure) [code = 113507965] Future Scheduled [address] [facility] Test 00:00:00 malignant neoplasm of Medica l Center cervix (procedure) [code = 538149581] Future Scheduled [address] [facility] Test 00:00:00 malignant neoplasm of Medica l Center cervix (procedure) [code = 225032383] Future Scheduled 2000 DTAP/TDAP/TD VACCINES CH I [...] HEPATITIS C Medical Center SCREENING] Future Scheduled [address] [facility] Test 00:00:00 Counseling and Medical Cente r Screening (12+) [code = Tobacco Cessation Counseling and Screening (12+)] Future Scheduled Screening for [facility] Test malignant neoplasm of cervix (procedure) [code = 846966821] Future Scheduled INFLUENZA VACCINE [facility] Test [code = INFLUENZA VACCINE] Encounters Start End Encounter Admission Attending Care Care Encounter Source Date/Time Date/Time Type Type Clinicians Facility Department ID 2021-07-27 Inpatient U [facility] [id number] Univers 05:33:08 ity of [facility] 2021-07-26 Emergency [facility] [id number] Univers 13:33:37 ity of [facility] 2021-07-26 Emergency [facility] [id number] Univers 05:24:44 ity of [facility] 2021-07-26 Emergency [facility] [id number] Univers 04:28:31 ity of [facility] 2021-07-26 Emergency [facility] [id number] Univers 03:03:49 ity of [facility] 2021-07-25 Emergency [facility] [id number] Univers 22:05:36 ity of [facility] 2021-07-25 Emergency [facility] [id number] Univers 13:56:50 ity of [facility] 2021-07-25 Emergency [facility] [id number] Univers 00:11:53 ity of [facility] 2021-07-24 Emergency [facility] [id number] Univers 19:05:24 ity of [facility] 2021-07-24 Emergency [facility] [id number] Univers 02:54:56 ity of [facility] 2021-07-23 [facility] [id number] Univers 12:42:06 XIANGKATIE ity o f [facility] 2021-07-23 Emergency [facility] [id number] Univers 03:50:23 ity of [facility] 2021-02-10 Inpatient ER BERSHAD, [facility] [id number] [facility] 20:21:00 KOFFI 2020-09-28 Inpatient EL Mely, [facility] [id number] [facility] 12:00:[address] [place] [address] 2023-04-24 2023-04-24 Outpatient Miguel ROMEO [facility] [id number] Univers 13:00:00 13:00:00 SENDIL ity of [facility] 2023-04-13 2023-04-13 Outpatient Miguel TRINIDAD [facility] [id number] Univers 10:00:00 10:00:00 MARIO ity [facility] 2023-04-07 2023-04-07 Outpatient MARY BLACKMON [facility] [id number] Univers 08:30:00 08:30:00 ity [facility] 2023-01-25 2023-01-25 Emergency X AUJAMESERMARCO [facility] ERT [id number] Univers 16:27:00 21:37:00 , [facility]-25 2023-01-25 Emergency Spike Steele-Gen TRAUMA [id number] Univers 16:27:00 21:37:00 Auaddychristian Rossi [facility] 350.1. [id number] ity [facility]2.7.2.686 [facility] [id number] [address] 2023-01-25 2023-01-25 Emergency X [facility] ERT [id number] Univers 03:25:00 07:38:00 , NICHOLAS ity [facility] 2023-01-25 2023-01-25 Emergency [facility] [id number] Univers 03:25:00 07:38:00 , Nicholas ONTIVEROS [id number] i ty of [place] 4.2.7.2.686 [facility] [id number] [address] 2023-01-23 2023-01-24 Emergency X [facility] [id number] Univers 22:11:00 03:07:00 LILLIE ity [facility] 2023-01-23 2023-01-24 Emergency [facility] [id number] Univers 22:11:00 03:07:00 Lillie FRANCOMICHA [id number] i ty of [place] 4.2.7.2.686 [facility] [id number] [address] 2023-01-19 2023-01-19 Outpatient [facility] [id number] Univers 10:00:00 10:11:37 MARIO ity [facility] 2023-01-19 2023-01-19 Office [facility] [id number] Univers 10:00:00 10:11:37 Visit Mario ANGLEMICHA [id number] i ty [place] [id number] [place] N[place] 059 [facility] 2023-01-17 2023-01-17 Outpatient R FULLER, [facility] [id number] Univers 08:30:00 08:30:00 CHILVANA ity o f [facility] 2023-01-10 2023-01-10 Emergency X [facility] ERT [id number] Univers 20:18:00 22:37:00 ANDIE [facility] 2023-01-10 2023-01-10 Emergency [facility] [id number] Univers 20:18:00 22:37:00 Andie S NYDIA [id number] ity of [facility] 4.2.7.2.686 [place] [id number] [address] 2023-01-05 2023-01-05 Outpatient R PIPES, [facility] [id number] Univers 14:30:00 14:30:00 [facility] 2022-12-28 2022-12-28 Outpatient [facility] [id number] Univers 15:00:00 15:00:00 [facility] 2022-12-28 2022-12-28 Telephone [facility] [id number] Univers 00:00:00 00:00:00 Shiwan NYDIA [id number] i ty [place] [id number] [place] NAL 085 [facility] 2022-12-27 2022-12-27 Telephone [facility] [id number] Univers 00:00:00 00:00:00 Mario HEALTH [id number] [place] [id number] [facility] [address] [place] OFFICE [facility] 2022-12-26 2022-12-26 Telephone [facility] [id number] Univers 00:00:00 00:00:00 [facility] [id number] it y of [place] 4.2.7.2.686 Basilio as EMILY?BLEA [id number] [place] SANCHEZ 092 [facility] 2022-12-23 2022-12-23 Emergency X [facility] ERT [id number] Univers 03:07:00 06:55:00 WAKILI ity of [facility] 2022-12-23 2022-12-23 Emergency [facility] [id number] Univers 03:07:00 06:55:00 Andie ONTIVEROS [id number] [place] of [place] [id number] [facility] [address] [place] 2022-12-22 2022-12-22 Outpatient R AMOS [facility] [id number] Univers 08:40:00 08:40:00 MARIO ity of [facility] 2022-12-21 2022-12-21 Telephone [facility] [id number] Univers 00:00:00 00:00:00 [facility] [id number] i ty [place] [id number] [facility] NAL 0[address] [facility] 2022-12-19 2022-12-19 Telephone Amos [facility] [id number] Univers 00:00:00 00:00:00 Mario [place] 350.1.13.10 i ty [place] [id number] [facility] 059 [facility] 2022-12-19 2022-12-19 Telephone Jonny [facility] [id number] Univers 00:00:00 00:00:[address] [facility] [id number] [place] [id number] [address] OFFICE BUILDING 2022-12-19 2022-12-19 Orders Doctor NURYS [id number] Univers 00:00:00 00:00:00 Only Unassigned, WANDA 350.1.13.10 ity of [facility] 4.2.7.2.686 Basilio as [id number] [address] 2022-12-16 2022-12-16 Orders Doctor NURYS 1.2.840.114 [id number] Univers 00:00:00 00:00:00 Only Unassigned, WANDA 350.1.13.10 ity of [facility] 4.2.7.2.686 Basilio as [id number] [address] 2022-12-14 2022-12-14 Andrey Cerda [facility] 1.2.840.114 10 [id number] Univers 00:00:00 00:00:00 HEALTH 350.1.13.10 it y [place] [id number] [address] OFFICE BUILDING 2022-12-13 2022-12-13 Outpatient R TUCKER VALIENTE [facility] 10 [id number] Univers 10:30:00 10:56:22 TUCKER VALIENTE i ty of [facility] 2022-12-13 2022-12-13 Office Steffanie [facility] 1.2.840.114 [id number] Univers 10:30:00 10:56:22 Visit Tucker [place] 350.1.13.10 i ty of [place] [phone] W[place] dical NAL 085 [facility] 2022-12-06 2022-12-06 Emergency [facility] 1044 [id number] Univers 11:45:00 16:26:00 , ROSSI ity of [facility] 2022-12-06 2022-12-06 [facility] 1.2.840.114 [id number] Univers 11:45:00 16:26:00 , Rossi ONTIVEROS 350.1.13.10 i ty of [place] [id number] [facility] [address] 2022-12-06 2022-12-06 Outpatient R SIMON [facility] [id number] Univers 10:31:03 11:44:00 NATALI ity of [facility] 2022-12-06 2022-12-06 [facility] 1.2.840.114 [id number] Univers 10:31:03 11:44:00 Encounter Natali YNDIA 350.1.13.10 ity [facility] 4.2.7.2.[place] [id number] [facility] [address] 2022-12-02 2022-12-02 Patient Amos [facility] 1.2.840.114 [id number] Univers 00:00:00 00:00:00 Secure Msg [facility] 350.1.13.10 it[place] [id number] [facility] [address] OFFICE BUILDING 2022-12-01 2022-12-01 Outpatient R AMOS [facility] [id number] Univers 09:30:00 09:36:23 MARIO ity of [facility] 2022-12-01 2022-12-01 Nurse Visit, [facility] Nurse [facility] 1.2.840.1 14 [id number] Univers 09:30:00 09:36:23 Visit Mario Trinidad 350.1.13.10 ity [facility] 4.2.7.2.[place] [facility] [phone] [place] dical NAL 059 Branch BUILDING 2022-12-01 2022-12-01 Orders Doctor NURYS 1.2.840.114 [id number] Univers 00:00:00 00:00:00 Only Unassigned, WANDA 350.1.13.10 ity of [facility] 4.2.7.2.686 Basilio as [id number] [facility] [address]9 [address] 2022-11-28 2022-11-28 Telephone Amos [facility] 1.2.160.397 5941 [id number] Univers 00:00:00 00:00:00 Mario [place] 350.1.13.10 i ty of [place] [phone] W[place] dical [facility] 0[address] BUILDING 2022-11-25 2022-11-25 [facility] [id number] Univers 09:30:00 10:44:14 JORDANA ity [facility] 2022-11-25 2022-11-25 Office [facility] 1.2.698.275 [id number] [id number] Univers 09:30:00 10:44:14 Visit Jordana Livingston Nessa 350.1.13.10 ity of [place] 4.2.7.2.686 Basilio as BANK [phone] [facility] BLDG. [address] 2022-11-23 2022-11-23 Outpatient R [facility] [id number] Univers 12:00:00 12:00:00 ity of [facility] 2022-11-23 2022-11-23 Emergency X [facility] ERT [id number] Univers 02:14:00 04:57:00 ARKILI [facility] 2022-11-23 2022-11-23 Emergency [facility] 1.2.770.390 7075 [id number] Univers 02:14:00 04:57:00 Lacarmen Paredes [place] 350.1.13.10 ity of [place].2.[place] [id number] [facility] [address] 2022-11-17 2022-11-18 [facility] [id number] Univers 12:45:00 16:40:00 MATT ity [facility] 2022-11-17 2022-11-18 [facility] AmosMario [facility] 1.2.840.114 [id number] Univers 12:45:00 16:40:00 Encounter Yamilka [facility] 350.1.13.10 it[place] [phone] [facility] 113 [address] (CLC) 2022-11-18 2022-11-18 Telephone Amos, [facility] 1.2.940.453 4004 [id number] Univers 00:00:00 00:00:00 Mario [place] 350.1.13.10 i ty of [place] [phone] [place] dical NAL 059 [facility] 2022-11-18 2022-11-18 Telephone Amos, [facility] 1.2.812.195 5130 [id number] Univers 00:00:00 00:00:00 Mario [place] 350.1.13.10 i ty of [place] [phone] [place] dical NAL 059 [facility] 2022-11-18 2022-11-18 Telephone Yamilka, [facility] 1.2.848.306 3905 90623 Univers 00:00:00 00:00:00 Matt HEALTH 350.1.13.10 it y of [place] [id number] [facility] [address] [place] [facility] 2022-11-17 2022-11-17 Surgery Amos, [facility] 1.2.840.114 [id number] Univers 15:00:00 17:00:00 Mario HEALTH 350.1.13.10 it y of [place] [id number] 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, [facility] [place] 1.2.8 40.114 [id number] Univers 12:00:00 12:15:00 Visit Mario Trinidad [place] 350.1.13.10 ity of [place].2.[place] [phone] W[place] dical NAL 353 [facility] 2022-11-09 2022-11-09 Outpatient R AMOS [facility] [id number] Univers 12:00:00 12:00:00 MARIO ity of [facility] 2022-11-09 2022-11-09 Telephone [facility] 1.2.232.423 [id number] [id number] Univers 00:00:00 00:00:00 Sendestelle Merida [place] 350.1.13.10 ity of [place] 4.2.7.2.686 [place] [facility] [phone] [place] dical NAL 059 [facility] 2022-11-08 2022-11-08 Telephone JANNETTE Trinidad 1.2.375.184 0842 [id number] Univers 00:00:00 00:00:00 Mario WANDA 350.1.13.10 it y of [facility] 4.2.7.2.686 Basilio as [phone] [facility] [address] [place] 2022-11-07 2022-11-07 Outpatient R TUCKER VALIENTE [facility] 10 [id number] Univers 12:46:12 23:59:00 TUCKER VALIENTE i ty of [facility] 2022-11-07 2022-11-07 [facility] 1.2.840.114 [id number] [id number] Univers 12:46:12 23:59:00 Encounter Tucker [place] 350.1.13.10 ity of [place].2.7.2.[place] [id number] [facility] [address] [place] 2022-11-07 2022-11-07 [facility] 1.2.721.084 4929 07059 Univers 00:00:00 00:00:00 Mario [place] 350.1.13.10 i ty of [place].2.[place] [id number] Wv dical NAL 059 [facility] 2022-11-03 2022-11-03 [facility] 1.2.677.306 9665 15332 Univers 00:00:00 00:00:00 Mario [place] 350.1.13.10 i ty of [facility] 4.2.7.2.[place] [phone] W[place] dical NAL 9 [facility] 2022-10-31 2022-10-31 Telephone [facility] 1.2.365.439 2325 [id number] Univers 00:00:00 00:00:00 Mario [place] 350.1.13.10 i ty of [place].2.[place].2.[place] [phone] W[place] dicnh NAL [address] [place] [address] 2022-10-28 2022-10-28 [facility] [id number] Univers 09:00:00 09:00:00 MARIO ity [facility] 2022-10-27 2022-10-27 Outpatient [facility] [id number] Univers 10:20:00 11:42:46 MARIO ity [facility] 2022-10-27 2022-10-27 Office [facility] 1.2.840.114 [id number] Univers 10:20:00 11:42:46 Visit Mario NYDIA 350.1.13.10 i ty of [place] [id number] [address] 2022-10-25 2022-10-25 Outpatient R OUSMANE [facility] [id number] Univers 13:00:00 13:42:31 SENDIL ity [facility] 2022-10-25 2022-10-25 Office [facility] 1.2.840.114 [id number] Univers 13:00:00 13:42:31 Visit Sendestelle [place] 350.1.13.10 ity of [place].2.[place] [phone] [place] dic[address] 2022-10-25 2022-10-25 Orders Doctor NUNO 1.2.840.114 [id number] Univers 00:00:00 00:00:00 Only Unassigned, WANDA 350.1.13.10 ity of [place] [facility] 4.2.7.2.686 Basilio as [phone] [address] 2022-10-12 2022-10-12 Telephone [facility] 1.2.570.220 0325 9001 Univers 00:00:00 00:00:00 Tucker [place] 350.1.13.10 i ty of [place].2.7.2.[place] [phone] [place] 362065 [facility] 2022-10-09 2022-10-09 Emergency X [facility] ERT [id number] Univers 04:43:00 05:54:00 LESTER ity [facility] 2022-10-09 2022-10-09 Emergency [facility] 1.2.074.317 3107 3608 Univers 04:43:00 05:54:00 Lester [place] 350.1.13.10 i ty [place] [id number] [facility] [address] 2022-09-29 2022-09-29 Outpatient R AMOS [facility] [id number] Univers 10:00:00 10:00:00 [facility]22-[facility]-28 2022-09-28 Transition YUNG PoolDonnie 1.2.840.114 [id number] [id number] Univers 00:00:00 00:00:00 of Care Catie SOLANO 350.1.13.10 i ty of [place].2.[place] [phone] [facility] [address] 2022-09-23 2022-09-26 Inpatient X [facility] [id number] Univers 16:25:00 11:37:00 STUART itnessa [facility] 2022-09-23 2022-09-26 [facility] Vladislav Logan [facility] 1.2.840 .114 [id number] Univers 16:25:00 11:37:00 Encounter Stuart Arevalo 350.1.13.10 ity [facility] 4.2.7.2.[place] [id number] [facility] [address] 2022-09-26 2022-09-26 Outpatient R OUSMANE [facility] [id number] Univers 10:00:00 10:00:00 SENDIL ity of [facility] 2022-09-20 2022-09-20 Telephone Steffanie [facility] 1.2.303.718 [id number] 9230 Univers 00:00:00 00:00:00 Tucker [place] 350.1.13.10 i ty of [place].2.[place] [phone] W[place] dical NAL 085 [facility] 2022-09-12 2022-09-12 Transition COLLETTE Patton 1.2.840.114 [id number] Univers 00:00:00 00:00:00 of Care Katherine SOLANO 350.1.13.10 i ty of [place] 4[place].2.[place] [id number] [facility] [address] [place] 2022-09-04 2022-09-09 Inpatient X ALFREDO ECHAVARRIA [facility] HONG [id number] Univers 20:18:00 18:25:00 ity of [facility] 2022-09-04 2022-09-09 Hospital Andie Kurtz 1.2.840.3 [id number] Univers 20:18:00 18:25:00 Encounter Alfredo Echavarria 51666.1.1 ity of 3.104.2.7 [place] .3.034328 Medica l .[address] [place] 2022-09-08 2022-09-08 Outpatient R AMOS [facility] [id number] Univers 11:00:00 11:00:00 MARIO ity of [facility] 2022-09-04 2022-09-04 Travel 1.2.840.1 1.2.308.164 5267 7938 Univers 00:00:00 00:00:00 25988.1.1 350.1.13.10 ity of 3.104.2.7 [place]3.698 [place] .3.9[place]39 084.8 Medica l .[address] [place] 2022-09-02 2022-09-02 Telephone Steffanie 1.2.840.9 [id number] [id number] Univers 00:00:00 00:00:00 Tucker 12258.1.1 ity of 3.104.2.7 [place] .3.625333 Medica l .[address] [place] 2022-09-01 2022-09-01 Outpatient R TUCKER VALIENTE [facility] 10 [id number] Univers 10:00:00 10:45:05 TUCKER VALIENTE i ty of [facility] 2022-09-01 2022-09-01 Office Steffanie, 1.2.840.7 [id number] Univers 10:00:00 10:45:05 Visit Tucker 81528.1.1 ity of 3.104.2.7 [place] .3.065733 Medica l .[address] [place] 2022-09-01 2022-09-01 Outpatient R ELIOT VALIENTEDonnie [facility] 10 [id number] Univers 10:00:00 10:00:00 ELIOT VALIENTEDonnie nichelle ty of [facility] 2022-09-01 2022-09-01 Outpatient R TUCKER VALIENTE [facility] 10 [id number] Univers 10:00:00 10:00:00 STEFFANIE ROLANDATARIDonnie nichelle ty of [facility] 2022-09-01 2022-09-01 Outpatient R TUCKER VALIENTE [facility] 10 [id number] Univers 10:00:00 10:00:00 STEFFANIE TUCKER nichelle ty of [facility] 2022-09-01 2022-09-01 Outpatient R TUCKER VALIENTE [facility] 10 [id number] Univers 10:00:00 10:00:00 ELIOT VALIENTEDonnie nichelle ty of [facility] 2022-09-01 2022-09-01 Travel 1.2.840.1 1.2.324.315 [id number] [id number] Univers 00:00:00 00:00:00 36394.1.1 350.1.13.10 ity of 3.104.2.7 [place].3.698 [place] .3.446095 084.8 Medica l .[address] [place] 2022-08-31 2022-08-31 Patient Jonny, [facility] 1.2.840.114 [id number] Univers 00:00:00 00:00:00 [facility] 350.1.13.10 ity of [place] [id number] [facility] [address] OFFICE BUILDING 2022-08-29 2022-08-29 Refill Ousmane, 1.2.840.7 [id number] 779 Univers 00:00:00 00:00:00 Sendestelle Merida 40485.1.1 ity of 3.104.2.7 [place] .3.085431 Medica l .8 Branch 2022-08-24 2022-08-24 Orders Doctor NURYS 1.2.840.114 [id number] Univers 00:00:00 00:00:00 Only Unassigned, WANDA 350.1.13.10 ity of [place] [facility] 4.2.7.2.686 Basilio as [id number] [facility] [address] 2022-08-22 2022-08-22 Telephone Leo, 1.2.840.2 [id number] Univers 00:00:00 00:00:00 Teofilo Quach 66623.1.1 it y of 3.104.2.7 [place] .3.263972 Medica l .8 Branch 2022-08-19 2022-08-19 Emergency X ALIZA [facility] ERT [id number] Univers 10:49:00 11:23:00 RADHA ity of [facility] 2022-08-19 2022-08-19 Emergency Aliza, 1.2.840.6 [id number] Univers 10:49:00 11:23:00 Radha Perez 70395.1.1 ity of 3.104.2.7 [place] .3.749039 Medica l .8 Branch 2022-08-19 2022-08-19 Nurse Sonny, 1.2.840.9 [id number] 081 Univers 00:00:00 00:00:00 Triage Yomaira 98359.1.1 it y of 3.104.2.7 [place] .3.217997 Medica l .8 Branch 2022-08-19 2022-08-19 Travel 1.2.840.1 1.2.645.577 4241 1118 Univers 00:00:00 00:00:00 31593.1.1 350.1.13.10 ity of 3.104.2.7 4[place].3.698 [place] .3.962732 084.8 Medica l .8 [place] 2022-08-17 2022-08-17 Orders Doctor 1.2.840.0 [id number] Univers 00:00:00 00:00:00 Only Unassigned, 28093.1.1 ity of [place] 3.104.2.7 [place] .3.285221 Medica l .[address] [place] 2022-08-14 2022-08-14 Emergency X ALIZA, [facility] ERT [id number] Univers 11:37:00 15:12:00 RADHA ity [facility] 2022-08-14 2022-08-14 Emergency Aliza, 1.2.840.9 [id number] Univers 11:37:00 15:12:00 Radha Perez 34530.1.1 ity of 3.104.2.7 [place] .3.310376 Medica l .[address] [place] 2022-08-14 2022-08-14 Travel 1.2.840.1 1.2.724.861 6671 1587 Univers 00:00:00 00:00:00 99404.1.1 350.1.13.10 ity of 3.104.2.7 4.[place]7.3.698 [place] .3.001282 084.8 Medica l .8 [place] 2022-08-05 2022-08-05 Outpatient R OUSMANE [facility] [id number] Univers 11:30:00 11:30:00 SENDIL ity [facility] 2022-08-05 2022-08-05 Outpatient R AMOS [facility] [id number] Univers 10:40:00 10:40:00 MARIO ity [facility] 2022-08-05 2022-08-05 [facility] [id number] Univers 10:40:00 10:40:00 MARIO ity [facility] 2022-08-03 2022-08-03 Orders Doctor 1.2.840.2 [id number] [id number] Univers 00:00:00 00:00:00 Only Unassigned, 46479.1.1 ity of [place] 3.104.2.7 [place] .3.649422 Medica l .[address] [place] 2022-08-02 2022-08-02 Telephone Yurinasbenji, 1.2.840.2 [id number] Univers 00:00:00 00:00:00 Strahil T 36760.1.1 it y of 3.104.2.7 [place] .3.512768 Medica l .8 [place] 2022-07-28 2022-07-28 Patient Doctor 1.2.840.5 [id number] Univers 00:00:00 00:00:00 Secure Msg Unassigned, 32253.1.1 ity of [place] 3.104.2.7 [place] .3.446437 Medica l .8 [place] 2022-07-27 2022-07-27 Telephone Leo, 1.2.840.5 [id number] Univers 00:00:00 00:00:00 Strahil T 99982.1.1 it y of 3.104.2.7 [place] .3.397236 Medica l .[address] [place] 2022-07-21 2022-07-21 Outpatient R AMOS [facility] [id number] Univers 10:47:18 23:59:00 MARIO ity of [facility] 2022-07-21 2022-07-21 [facility], 1.2.840.3 [id number] [id number] Univers 10:47:18 23:59:00 Encounter Mario 25914.1.1 it y of 3.104.2.7 [place] .3.129210 Medica l .[address] [place] 2022-07-20 2022-07-20 Outpatient R TEOFILO SYKES [facility] [id number] Univers 09:20:00 09:56:41 TEOFILO SYKES ity of [facility] 2022-07-20 2022-07-20 Office Leo, 1.2.840.3 [id number] [id number] Univers 09:20:00 09:56:41 Visit Teofilo Quach 62940.1.1 it y of 3.104.2.7 [place] .3.188083 Medica l .8 [place] 2022-07-20 2022-07-20 Travel 1.2.840.1 1.2.021.834 5396 4821 Univers 00:00:00 00:00:00 22220.1.1 350.1.13.10 ity of 3.104.2.7 4[place]7.3.698 [place] .3.670895 084.8 Medica l .8 [place] 2022-07-07 2022-07-07 Telephone Steffanie, 1.2.840.8 [id number] 974 [id number] Univers 00:00:00 00:00:00 Shiwan 69485.1.1 ity of 3.104.2.7 [place] .3.821643 Medica l .8 [place] 2022-07-06 2022-07-06 Orders Doctor 1.2.840.3 [id number] Univers 00:00:00 00:00:00 Only Unassigned, 92609.1.1 ity of [place] 3.104.2.7 [place] .3.908568 Medica l .8 [place] 2022-06-29 2022-06-29 Refill Steffanie, 1.2.840.0 [id number] 938 Univers 00:00:00 00:00:00 Shiwan 25023.1.1 ity of 3.104.2.7 [place] .3.112962 Medica l .8 [place] 2022-06-29 2022-06-29 Patient Doctor 1.2.840.0 [id number] 810 Univers 00:00:00 00:00:00 Secure Msg Unassigned, 41052.1.1 ity of [place] 3.104.2.7 [place] .3.267712 Medica l .8 [place] 2022-06-28 2022-06-28 Telephone Jeanie, Crystal 1.2.840.1 [id number] Univers 00:00:00 00:00:00 31091.1.1 ity of 3.104.2.7 [place] .3.980766 Medica l .8 [place] 2022-06-22 2022-06-22 Telephone Ousmane, 1.2.840.5 [id number] 970 [id number] Univers 00:00:00 00:00:00 Sendil [place] 66710.1.1 ity of 3.104.2.7 [place] .3.415162 Medica l .8 [place] 2022-06-21 2022-06-21 Outpatient R OUSMANE, [facility] [id number] Univers 14:00:00 14:51:21 SENDIL ity of [facility] 2022-06-21 2022-06-21 Office Ousmane, 1.2.840.8 [id number] Univers 14:00:00 14:51:21 Visit Sendil [place] 20397.1.1 ity of 3.104.2.7 [place] .3.085494 Medica l .8 Branch 2022-06-20 2022-06-21 Emergency X Chevy MARTIN [facility] ERT [id number] Univers 20:55:00 01:27:00 ity of [facility] 2022-06-20 2022-06-21 Emergency Chevy Martin 1.2.840.0 [id number] Univers 20:55:00 01:27:00 Bita 83128.1.1 ity of 3.104.2.7 [place] .3.336003 Medica l .8 Branch 2022-06-20 2022-06-20 Travel 1.2.840.1 1.2.319.291 2457 9564 Univers 00:00:00 00:00:00 29901.1.1 350.1.13.10 ity of 3.104.2.7 4[place].3.698 [place] .3.751481 084.8 Medica l .8 [place] 2022-06-16 2022-06-16 Refill Steffanie, 1.2.840.0 [id number] 732 Univers 00:00:00 00:00:00 Tucker 65537.1.1 ity of 3.104.2.7 [place] .3.239267 Medica l .8 [place] 2022-06-16 2022-06-16 Orders Doctor 1.2.840.8 [id number] 525 Univers 00:00:00 00:00:00 Only Unassigned, 44350.1.1 ity of [place] 3.104.2.7 [place] .3.552926 Medica l .8 [place] 2022-06-15 2022-06-15 Orders Doctor 1.2.840.5 [id number] 334 Univers 00:00:00 00:00:00 Only Unassigned, 62731.1.1 ity of [place] 3.104.2.7 [place] .3.895416 Medica l .8 Branch 2022-06-14 2022-06-14 Orders Doctor 1.2.840.5 [id number] 623 Univers 00:00:00 00:00:00 Only Unassigned, 31193.1.1 ity of [place] 3.104.2.7 [place] .3.309923 Medica l .8 Branch 2022-06-02 2022-06-02 Orders Doctor NURYS 1.2.840.114 [id number] Univers 00:00:00 00:00:00 Only Unassigned, WANDA 350.1.13.10 ity of [place] [facility] 4.2.7.2.686 Basilio as [id number] [facility] 009 Branch 2022-05-31 2022-05-31 Telemedici Andrey Telles [facility] 1.2.840.114 [id number] Univers 11:30:00 12:00:00 ne Visit HEALTH 350.1.13.10 i [place] [id number] [facility] 092 Branch OFFICE BUILDING 2022-05-31 2022-05-31 Outpatient R ANDREY TELLES [facility] [id number] Univers 11:30:00 11:30:00 ANDREY TELLES of [facility] 2022-05-31 2022-05-31 Outpatient R ANDREY TELLES [facility] [id number] Univers 11:30:00 11:30:00 ANDRYE TELLES of [facility] 2022-05-31 2022-05-31 Orders Doctor NURYS 1.2.840.114 [id number] Univers 00:00:00 00:00:00 Only Unassigned, WANDA 350.1.13.10 ity of [place] [facility] 4.2.7.2.686 Basilio as [id number] [address] 2022-05-26 2022-05-26 Larisa Valiente [facility] 1.2.840.114 [id number] Univers 00:00:00 00:00:00 Tucker [place] 350.1.13.10 i ty [place] [id number] [place] N[place] 085 [facility] 2022-05-26 2022-05-26 Orders Doctor NURYS 1.2.840.114 [id number] Univers 00:00:00 00:00:00 Only Unassigned, WANDA 350.1.13.10 ity of [place] [facility] 4.2.7.2.686 Basilio as [id number] [address] 2022-05-24 2022-05-24 [facility] 1.2.840.114 [id number] Univers 09:30:00 10:00:48 Visit Sendestelle [place] 350.1.13.10 ity [place] [id number] [place] dic[place] NAL 059 [facility] 2022-05-24 2022-05-24 Outpatient R OUSMANE [facility] [id number] Univers 09:30:00 10:00:48 SENDIL itnessa [facility] 2022-05-24 2022-05-24 Outpatient R OUSMANE [facility] [id number] Univers 09:30:00 09:30:00 SENDIL itnessa [facility] 2022-05-24 2022-05-24 Patient Vick [facility] 1.2.840.114 [id number] Univers 00:00:00 00:00:00 Secure Nvsejal Tong [facility] 350.1.13.10 it[place] [id number] [address] OFFICE [facility] 2022-05-24 2022-05-24 [facility] 1.2.558.362 [id number] Univers 00:00:00 00:00:00 [facility] HEALTH 350.1.13.10 [place] [id number] [address] OFFICE [facility] 2022-05-24 2022-05-24 [facility] 1.2.149.280 [id number] Univers 00:00:00 00:00:[address] [facility] 350.1.13.10 [place] [id number] [address] OFFICE [facility] 2022-05-20 2022-05-20 Outpatient Miguel TRINIDAD [facility] [id number] Univers 09:00:00 09:00:00 MARIO ity of [facility] 2022-05-19 2022-05-19 Telephone [facility] 1.2.463.902 [id number] Univers 00:00:00 00:00:00 Shiwan [place] 350.1.13.10 i ty [place] [phone] [address] 2022-05-19 2022-05-19 Telephone [facility] 1.2.336.693 [id number] Univers 00:00:00 00:00:00 Shiwan [place] 350.1.13.10 i ty [place] 4[place] [id number] [place] dic[address] 2022-05-19 2022-05-19 Telephone [facility] 1.2.970.624 [id number] Univers 00:00:00 00:00:00 Shiwan [place] 350.1.13.10 i ty [place] [id number] [place] 2022-05-13 2022-05-13 Outpatient Miguel TR[place]AD [facility] [id number] Univers 09:42:18 23:59:00 MARIO ity [facility] 2022-05-13 2022-05-13 Outpatient R AMOS [facility] [id number] Univers 09:42:18 23:59:00 MARIO ity [facility] 2022-05-13 2022-05-13 Outpatient R [facility] [id number] Univers 10:00:00 10:00:00 MARIO ity [facility] 2022-05-13 2022-05-13 Outpatient R [facility] [id number] Univers 10:00:00 10:00:00 [facility]-09 2022-05-09 Telephone Steffanie [facility] 1.2.370.537 [id number] Univers 00:00:00 00:00:00 Tucker [place] 350.1.13.10 i ty of [place].2.[place] [facility] [id number] [place] dical [address] 2022-05-09 2022-05-09 Orders Doctor NURYS 1.2.840.114 [id number] Univers 00:00:00 00:00:00 Only Unassigned, WANDA 350.1.13.10 ity of [place] [facility] 4.2.7.2.686 Basilio as [id number] [facility] [address] [place] 2022-05-07 2022-05-07 Emergency X [facility] ERT [id number] Univers 20:14:00 22:33:00 KYAW whitaker [facility] 2022-05-07 2022-05-07 Emergency [facility] 1.2.210.116 [id number] Univers 20:14:00 22:33:00 Kyaw [place] 350.1.13.10 i ty of [place] 4.2.7.2.[place] [id number] [facility] [address] [place] 2022-05-07 2022-05-07 Emergency X [facility] ERT [id number] Univers 20:14:00 22:33:00 KYAW ity [facility] 2022-05-06 2022-05-06 Office Fish, Kanika [facility] 1.2.840.114 [id number] Univers 13:30:00 14:31:27 Visit NYDIA 350.1.13.10 i ty of [facility] 4.2.7.2.[place] [id number] [facility] 134 [facility] 2022-05-06 2022-05-06 Outpatient R KANIKA MEZA [facility] [id number] Univers 13:30:00 14:31:27 ity of [facility] 2022-05-06 2022-05-06 Outpatient R KANIKA MEZA [facility] [id number] Univers 13:30:00 13:30:00 ity of [facility] 2022-05-06 2022-05-06 Outpatient R KANIKA MEZA [facility] [id number] Univers 13:30:00 13:30:00 ity of [facility] 2022-05-06 2022-05-06 Telephone Steffanie [facility] 1.2.133.777 [id number] Univers 00:00:00 00:00:00 Shitarin NYDIA 350.1.13.10 i ty of [place] [id number] [address] 2022-05-06 2022-05-06 Telephone Steffanie [facility] 1.2.589.339 [id number] Univers 00:00:00 00:00:00 Tucker [place] 350.1.13.10 i ty of [place] [id number] [address] 2022-05-06 2022-05-06 Orders Doctor NURYS 1.2.840.114 [id number] Univers 00:00:00 00:00:00 Only Unassigned, WANDA 350.1.13.10 ity of [place] [facility] 4.2.7.2.686 Basilio as [id number] [address] 2022-05-02 2022-05-02 Refanand Romeo [facility] 1.2.840.114 [id number] Univers 00:00:00 00:00:00 Navi [place] 350.1.13.10 ity of [place] 4.2.7.2.[place] [id number] [place] dicnh NAL 059 [facility] 2022-05-02 2022-05-02 Refill Ousmane [facility] 1.2.840.114 [id number] Univers 00:00:00 00:00:00 Sendil Magnolia [place] 350.1.13.10 ity of [place] 4.2.7.2.[place] [id number] [place] dicnh NAL 059 [facility] 2022-04-29 2022-04-29 Orders Doctor NURYS 1.2.840.114 [id number] Univers 00:00:00 00:00:00 Only Unassigned, WANDA 350.1.13.10 [facility] 4.2.7.2.686 Basilio as [phone] [facility] [address] [place] 2022-04-27 2022-04-27 Telephone [facility] 1.2.260.543 [id number] Univers 00:00:00 00:00:00 Tucker ONTIVEROS 350.1.13.10 i ty of [place] 4.2.7.2.[place] [id number] [facility] 085 [facility] 2022-04-15 2022-04-18 Outpatient X LINDY [facility] HONG [id number] Univers 18:13:00 17:00:00 PONCE ity of [facility] 2022-04-15 2022-04-18 Emergency Chevy Martin 1.2.840. 114 [id number] Univers 18:13:00 17:00:00 Jose Fuller 350. 1.13.10 ity of [facility] 4.2.7.2.686 [place] [id number] [facility] [address] [place] 2022-04-18 2022-04-18 Outpatient SOL MONCADA [facility] [id number] Univers 15:00:00 15:00:00 ity of [facility] 2022-04-14 2022-04-14 Telephone Jonny [facility] 1.2.069.425 [id number] Univers 00:00:00 00:00:[address] [facility] 350.1.13.10 i ty of [place] 4.2.7.2.[place] [id number] [facility] [address] OFFICE BUILDING 2022-04-14 2022-04-14 Telephone [facility] 1.2.344.538 [id number] Univers 00:00:00 00:00:00 Shiwan NYDIA 350.1.13.10 i ty of [place] 4.2.7.2.[place] [id number] W[place] dical NAL 085 [facility] 2022-04-07 2022-04-07 Outpatient PATMERLE_JAZMYNE [facility] 754 [place] 08:14:00 08:14:00 H 0714 da [facility] Outre h Program 2022-04-05 2022-04-05 Outpatient R KANIKA MEZA [facility] [id number] Univers 09:00:00 09:49:19 [facility] 2022-[facility]-05 2022-04-05 Office Tay Mezan [facility] 1.2.840.114 [id number] Univers 09:00:00 09:49:19 Visit [place] 350.1.13.10 i ty of [place] 4.[place].7.2.[place] [id number] [place] dical NAL 134 [facility] 2022-04-05 2022-04-05 Outpatient R KANIKA MEZA [facility] [id number] Univers 09:00:00 09:49:19 [facility] 2022-04-05 2022-04-05 Outpatient R KANIKA MEZA [facility] [id number] Univers 09:00:00 09:00:00 [facility] 2022-03-23 2022-03-23 Outpatient R ERNIE RODAS [facility] [id number] Univers 10:00:00 10:00:00 ERNIE RODAS [facility] 2022-03-23 2022-03-23 Emergency X Chevy MARTIN [facility] ERT [id number] Univers 01:37:00 03:06:00 ity of [facility] 2022-03-23 2022-03-23 Emergency Veronica, Chevy [facility] 1.2.840.114 [id number] Univers 01:37:00 03:06:00 Bita [place] 350.1.13.10 i ty of [place] 4.2.7.2.[place] [id number] [address] 2022-03-23 2022-03-23 Telephone [facility] 1.2.361.801 [id number] Univers 00:00:00 00:00:00 Shifransisco ONTIVEROS 350.1.13.10 i ty of [place] 4.2.7.2.686 [place] [facility] [phone] [place] dical [facility]5 [address] BUILDING 2022-03-17 2022-03-17 Outpatient R [facility] [id number] Univers 09:30:00 09:30:00 ity of [facility] 2022-03-17 2022-03-17 Outpatient R [facility] [id number] Univers 09:30:00 09:30:00 ity of [facility] 2022-03-15 2022-03-15 [facility] [id number] Univers 08:30:00 09:16:22 [facility] ity o f [facility] 2022-03-15 2022-03-15 Office [facility] 1.2.840. 114 [id number] Univers 08:30:00 09:16:22 Visit [facility] 350.1.13.10 ity of [place] 4.2.7.2.[place] [phone] [place] [address] [address] OFFICE BUILDING 2022-03-10 2022-03-11 Emergency X [facility] ERT [id number] Univers 22:48:00 00:50:00 ANDIE ity [facility] 2022-03-10 2022-03-11 [facility] 1.2.599.528 [id number] Univers 22:48:00 00:50:00 Andie ONTIVERSO 350.1.13.10 ity of [place] 4.2.7.2.[place] C[place]US [id number] [place] [address] [address] 2022-03-10 2022-03-11 Emergency X FILEOMN [facility] ERT [id number] Univers 22:48:00 00:50:00 ANDIE ity [facility] 2022-03-08 2022-03-08 Outpatient R [facility] [id number] Univers 11:00:00 11:00:00 ity [facility] 2022-02-25 2022-02-25 Outpatient R TUCKER VALIENTE [facility] [id number] Univers 11:30:00 11:59:54 TUCKER VALIENTE i ty [facility] 2022-02-25 2022-02-25 Office Steffanie [facility] 1.2.840.114 [id number] Univers 11:30:00 11:59:54 Visit Tucker [place] 350.1.13.10 i ty [facility] 4.2.7.2.686 [place] [facility] [phone] [place] dic[address] 2022-02-25 2022-02-25 Outpatient R TUCKER VALIENTE [facility] [id number] Univers 11:30:00 11:30:00 TUCKER VALIENTE i ty [facility] 2022-02-23 2022-02-23 Outpatient R TEOFILO SYKES [facility] [id number] Univers 13:20:00 13:50:10 [facility] 2022-02-23 2022-02-23 Office Leo [facility] 1.2.144.228 [id number] Univers 13:20:00 13:40:00 Visit Teofilo [place] 350.1.13.10 ity [facility] 4.2.7.2.[place] [id number] [place] dic[address] 2022-02-23 2022-02-23 Outpatient R TEOFILO SYKES [facility] [id number] Univers 13:20:00 13:20:00 MEG SYKESL ity [facility] 2022-02-23 2022-02-23 Outpatient R TEOFILO SYKES [facility] [id number] Univers 13:20:00 13:20:00 ATATOBY MEGTerrance ity [facility] 2022-02-23 2022-02-23 Orders Doctor NURYS 1.2.840.114 [id number] Univers 00:00:00 00:00:00 Only Unassigned, WANDA 350.1.13.10 ity of [place] [facility] 4.2.7.2.686 Basilio as [id number] [address] 2022-02-23 2022-02-23 Telephone [facility] 1.2.840.114 [id number] Univers 00:00:00 00:00:00 Teofilo ONTIVEROS 350.1.13.10 ity of [place] 4.2.7.2.[place] [id number] W[place] dical NAL 5 [facility] 2022-02-15 2022-02-15 Orders Doctor NURYS 1.2.840.114 [id number] Univers 00:00:00 00:00:00 Only Unassigned, WANDA 350.1.13.10 ity of [place] [facility] 4.2.7.2.686 Basilio as [id number] [address] 2022-02-03 2022-02-03 Telephone [facility] 1.2.095.730 [id number] Univers 00:00:00 00:00:00 Navi ONTIVEROS 350.1.13.10 ity [address] [facility] 4.2.7.2.686 [place] [phone] [place] dicnh NAL 9 [facility] 2022-01-31 2022-01-31 Outpatient R OUSMANE [facility] [id number] Univers 13:00:00 13:07:55 SENDIL sherman [facility] 2022-01-31 2022-01-31 Office [facility] 1.2.840.114 [id number] Univers 13:00:00 13:07:55 Visit Navi O[place]OS 350.1.13.10 ity of [facility] 4.2.7.2.[place] [phone] [place] dical NAL [address] [place] [address] 2022-01-31 2022-01-31 Outpatient R OUSMANE [facility] [id number] Univers 13:00:00 13:00:00 SENDIL ity of [facility] 2022-01-28 2022-01-28 Outpatient R AMOS [facility] [id number] Univers 09:52:45 23:59:00 MARIO ity [facility] 2022-01-28 2022-01-28 Outpatient R AMOS [facility] [id number] Univers 09:52:45 23:59:00 MARIO ity [facility] 2022-01-24 2022-01-24 Telephone Ousmane [facility] 1.2.702.625 [id number] Univers 00:00:00 00:00:00 Sendil Magnolia [place] 350.1.13.10 ity [facility] 4.2.7.2.[place] PROFZIGGYIO [id number] [place] dicnh NAL [address] [place] [address] 2022-01-21 2022-01-21 Outpatient R FULLER [facility] [id number] Univers 08:00:00 08:00:00 CHIILIANAANA ity o f [facility] 2022-01-18 2022-01-18 Outpatient R CLIFFORD [facility] [id number] Univers 13:40:00 14:35:50 GUCCI TSE it y [facility] 2022-01-18 2022-01-18 Office [facility] 1.2.840.114 [id number] Univers 13:40:00 14:35:50 Visit Gucci tse PRIMARY 350.1.13.10 ity of [facility] 4.2.7.2.686 [place] MAIK [id number] [place] dical [address] [place] [address] 2022-01-02 2022-01-03 Outpatient X [facility] [id number] Univers 22:00:00 16:04:00 ANDIE whitaker [facility] 2022-01-02 2022-01-03 Emergency Andie Kurtz [facility] 1.2.840 .114 [id number] Univers 22:00:00 16:04:00 Stuart Arevalo 350.1.13.10 ity of [place] 4.2.7.2.[place] [id number] [address] 2022-01-03 2022-01-03 Telephone [facility] 1.2.886.201 [id number] Univers 00:00:00 00:00:00 Navi ONTIVEROS 350.1.13.10 ity of [place] 4.2.[place].2.[place] 312.0017804 [place] dical [facility]9 [facility] 2021-12-31 2021-12-31 Emergency X RADHA [facility] ERT [id number] Univers 16:32:00 21:48:00 LILLIE itnessa [facility] 2021-12-31 2021-12-31 Emergency Radha [facility] 1.2.077.164 [id number] Univers 16:32:00 21:48:00 Lillie ONTIVEROS 350.1.13.10 i ty of [place] 4.2.7.2.686 [facility] [id number] [address] 2021-12-16 2021-12-16 Telephone [facility] 1.2.065.593 [id number] Univers 00:00:00 00:00:00 Nurys MAI 350.1.13.10 ity of [place] 4[place]2.7.2.[place] P[place]IC [id number] W[place] dical AND ADULT [address] [facility] 2021-12-09 2021-12-09 Emergency X ALIZA [facility] ERT [id number] Univers 01:58:00 04:56:00 RADHA whitaker [facility] 2021-12-09 2021-12-09 Emergency [facility] 1.2.840.114 [id number] Univers 01:58:00 04:56:00 Radha ONTIVEROS 350.1.13.10 ity of [facility] 4.2.7.2.[place] [id number] [address] 2021-12-09 2021-12-09 Orders Doctor NURYS 1.2.840.114 [id number] Univers 00:00:00 00:00:00 Only Unassigned, WANDA 350.1.13.10 ity of [place] [facility] 4.2.7.2.686 Basilio as [phone] [address] 2021-12-07 2021-12-07 [facility] 1.2.559.885 [id number] Univers 00:00:00 00:00:00 Shiwan [place] 350.1.13.10 i ty of [facility] 4.2.7.2.[place] [phone] [place] dical NAL 085 [facility] 2021-12-07 2021-12-07 Orders Doctor NURYS 1.2.840.114 [id number] Univers 00:00:00 00:00:00 Only Unassigned, WANDA 350.1.13.10 ity of [place] [facility] 4.2.7.2.686 Basilio as [phone] [address] 2021-12-06 2021-12-06 [facility] 1.2.840.114 [id number] Univers 00:00:00 00:00:00 Shiwan [place] 350.1.13.10 i ty of [place] 4.2.7.2.[place] [id number] [place] dicnh NAL 059 [facility] 2021-11-30 2021-11-30 [facility] 1.2.840.114 [id number] Univers 00:00:00 00:00:00 Shiwan [place] 350.1.13.10 i ty of [facility] 4.2.7.2.[place] [id number] [place] dical NAL 085 [facility] 2021-11-15 2021-11-15 [facility] 1.2.777.979 [id number] Univers 00:00:00 00:00:00 Shiwan [place] 350.1.13.10 i ty of [place] 4.2.7.2.[place] [id number] [place] dical NAL 085 [facility] 2021-11-12 2021-11-12 Telephone [facility] 1.2.560.289 [id number] Univers 00:00:00 00:00:00 Shiwan [place] 350.1.13.10 i ty of [place] 4.2.7.2.[place] [id number] [facility] NAL 085 [facility] 2021-11-06 2021-11-06 Refill [facility] 1.2.840.114 [id number] Univers 00:00:00 00:00:00 Shiwan [place] 350.1.13.10 i ty of [place] 4.2.7.2.[place] [phone] [facility] 085 [facility] 2021-11-05 2021-11-05 Outpatient [facility] [id number] Univers 10:23:45 23:59:00 MARIO ity of [facility] 2021-11-05 2021-11-05 [facility] 1.2.840.114 [id number] Univers 10:23:45 23:59:00 Encounter Mario NYDIA 350.1.13.10 ity of [facility] 4.2.7.2.[place] [id number] [facility] 844 [facility] 2021-11-05 2021-11-05 Outpatient [facility] [id number] Univers 11:20:00 11:47:58 ANDREWS youssefy o f [facility] 2021-11-05 2021-11-05 Office [facility] 1.2.840.114 [id number] Univers 11:20:00 11:47:58 Visit Andrews [place] 350.1.13.10 ity of [place] 4.[place].7.2.[place] [phone] [facility] NAL 059 [facility] 2021-11-02 2021-11-02 Telephone [facility] 1.2.505.372 [id number] Univers 00:00:00 00:00:00 Shiwan [place] 350.1.13.10 i ty of [place] 4.2.7.2.[place] [id number] Me dical NAL 085 [facility] 2021-11-02 2021-11-02 Telephone Steffanie [facility] 1.2.139.850 [id number] Univers 00:00:00 00:00:00 Tucker [place] 350.1.13.10 i ty of [facility] 4.2.7.2.686 [place] [id number] [place] dical NAL 059 [facility] 2021-11-01 2021-11-01 Outpatient R TUCKER VALIENTE [facility] [id number] Univers 09:17:26 23:59:00 TUCKER VALIENTE i ty of [facility] 2021-11-01 2021-11-01 Hospital [facility] 1.2.840.114 [id number] Univers 09:17:26 23:59:00 Encounter [facility] 350.1.13.10 ity [facility] 4.2.7.2.[place] [phone] [place] [address] [address] ([facility] 2021-11-01 2021-11-01 Outpatient R TUCKER VALIENTE [facility] 10 [id number] Univers 09:17:26 23:59:00 TUCKER VALIENTE i ty of [facility] 2021-10-22 2021-10-22 Outpatient R TUCKER VALIENTE [facility] 10 [id number] Univers 12:00:00 12:21:50 TUCKER VALIENTE i ty of [facility] 2021-10-22 2021-10-22 Office Steffanie [facility] 1.2.840.114 [id number] Univers 12:00:00 12:21:50 Visit [facility] 350.1.13.10 i ty of [place] 4.2.7.2.[place] [phone] [place] dical NAL 085 [facility] 2021-09-29 2021-09-29 Emergency X SINGER WYLENARD ERT [id number] Univers 10:03:00 10:22:00 KYAW ity of [facility] 2021-09-29 2021-09-29 Emergency Singer [facility] 1.2.365.603 [id number] Univers 10:03:00 10:22:00 Kyaw [place] 350.1.13.10 i ty of [place] 4.2.7.2.[place] C[place]US [id number] [facility] [address] 2021-09-21 2021-09-21 Telephone Ousmane [facility] 1.2.724.450 [id number] [id number] Univers 00:00:00 00:00:00 Navi [place] 350.1.13.10 ity of [place] 4.2.7.2.686 [place] [facility] [phone] [place] dical NAL [address] [facility] 2021-09-15 2021-09-15 Telephone Jonny [facility] 1.2.169.488 [id number] [id number] Univers 00:00:00 00:00:00 [place] SPECIALTY 350.1.13.10 ity of [place]2.7.2.[place] CENTER AT [id number] [place] dical VICTOR 092 [facility] 2021-09-08 2021-09-08 Telephone Jonny [facility] 1.2.339.470 [id number] Univers 00:00:00 00:00:00 Ch[place]ana FRIENDSWO 350.1.13.10 ity of [place] 4[place]2.7.2.[place] [phone] [place] dical AND ADULT 092 [place] [facility] 2021-09-08 2021-09-08 Orders Doctor NURYS 1.2.840.114 [id number] Univers 00:00:00 00:00:00 Only Unassigned, WANDA 350.1.13.10 ity of [facility] [facility] 4.2.7.2.686 Basilio as [phone] [facility] [address] 2021-09-06 2021-09-06 Telephone Jonny [facility] 1.2.308.283 [id number] Univers 00:00:00 00:00:00 [place] HEALTH 350.1.13.10 i ty of [place].2.[place] [id number] [facility] MEDICAL [address] OFFICE BUILDING 2021-09-03 2021-09-03 Outpatient R JONNY [facility] [id number] Univers 10:00:00 10:34:22 CHIL[place]NA ity o f [facility] 2021-09-03 2021-09-03 Outpatient R JONNY [facility] [id number] Univers 10:00:00 10:34:22 NURYS ity o f [facility] 2021-09-03 2021-09-03 Office [facility] 1.2.840.114 [id number] Univers 09:38:02 10:34:22 Visit Favioderrick JOSRWCarolynn 350.1.13.10 ity of [place] 4[place]2.[place].2.[place] [id number] [place] dical AND ADULT 0[address] [place] [facility] 2021-09-03 2021-09-03 Outpatient R JONNY [facility] [id number] Univers 10:00:00 10:00:00 NURYS youssefy o f [facility] 2021-08-31 2021-08-31 Office [facility] 1.2.840.114 [id number] Univers 11:17:59 11:47:59 Visit Navi [place] [id number] [facility]y [address] [facility] [place] [phone] [place] N[place] 059 [facility] 2021-08-31 2021-08-31 Outpatient R [facility]E [facility] [id number] Univers 11:30:00 11:30:00 SENDIL ity of [facility] 2021-08-31 2021-08-31 Orders Doctor NUNO 1.2.840.114 [id number] Univers 00:00:00 00:00:00 Only Unassigned, WANDA [id number] ity of [place] [facility] 4.2.7.2.686 Basilio as [phone] [address] 2021-08-25 2021-08-25 Telephone Leo [facility] 1.2.840.114 [id number] Univers 00:00:00 00:00:00 Teofilo ONTIVEROS [id number] ity [place] [phone] [place] NAL 085 [facility] 2021-08-14 2021-08-14 Emergency [facility] [id number] Univers 11:05:00 11:22:00 RADHA itnessa [facility] 2021-08-14 2021-08-14 [facility] 1.2.840.114 [id number] Univers 11:05:00 11:22:00 Radha ONTIVEROS [id number] ity [place] [id number] [facility] [address] 2021-08-13 2021-08-13 Orders Doctor NURYS 1.2.840.114 [id number] Univers 00:00:00 00:00:00 Only Unassigned, WANDA 350.1.13.10 ity of [place] [facility] 4.2.7.2.686 Basilio as [phone] [facility] [address] 2021-08-12 2021-08-12 Hospital Mona Rodriguez 1.2.840.114 [id number] Univers 10:22:39 23:59:00 Encounter Tech, [facility] Eeg WANDA [id number] [place] [phone] [facility] [address] 2021-08-12 2021-08-12 Outpatient R [facility] [id number] Univers 07:27:10 10:21:00 SENDIL ity of [facility] 2021-08-12 2021-08-12 Hospital DANITA Romeo 1.2.840.114 [id number] Univers 07:27:10 10:21:00 Encounter [facility] [id number] [place] [phone] [facility] [address] 2021-08-05 2021-08-05 Emergency [facility] E[facility] [id number] Univers 09:38:00 13:54:00 KRALA [facility]aker [facility] 2021-08-05 2021-08-05 [facility] [id number] Univers 09:38:00 13:54:00 Karla ONTIVEROS 350.1.13.10 ity of [place] [phone] [facility] [address] [place] 2021-08-05 2021-08-05 Outpatient R MICHAEL [facility] [id number] Univers 08:00:00 08:00:00 MONA ity of [facility] 2021-07-30 2021-07-30 Outpatient R TUCKER VALIENTE [facility] [facility] 10 [id number] Univers 09:30:00 09:44:34 TUCKER VALIENTE i ty of [facility] 2021-07-30 2021-07-30 [facility] 1.2.840.114 [id number] Univers 09:16:56 09:44:34 Visit Tucker ONTIVEROS 350.1.13.10 i ty of [place] [phone] [place] dical NAL [address] [place] [address] 2021-07-28 2021-07-28 Orders Doctor NURYS 1.2.840.114 [id number] Univers 00:00:00 00:00:00 Only Unassigned, WANDA 350.1.13.10 [facility] 4.2.7.2.686 Basilio as [phone] [facility] 00[address] [place] 2021-07-21 2021-07-21 Office Leo [facility] 1.2.946.254 3249 2969 Univers 09:38:37 10:17:36 Visit Teofilo Ontiveros 350.1.13.10 it[place] of [place] [phone] [place] dical [place]al [address] [place] [address] 2021-07-21 2021-07-21 Outpatient R TEOFILO SYKES [facility] [id number] Univers 10:00:00 10:00:00 TEOFILO SYKES ity of [facility] 2021-07-21 2021-07-21 Refill Ousmane [facility] 1.2.840.114 [id number] Univers 00:00:00 00:00:00 Navi Ontiveros 350.1.13.10 it[place] [phone] [place] dical nal 059 [facility] 2021-07-15 2021-07-15 Telephone Pipes, [facility] 1.2.342.104 [id number] 6756 Univers 00:00:00 00:00:00 [facility] WineNice 350.1.13.10 it y of [place] [phone] [address] Office [facility] 2021-07-13 2021-07-13 [facility] 1.2.840.114 [id number] Univers 11:18:09 23:59:00 Encounter Mario [place] 350.1.13.10 it[place] [phone] [facility] 844 [facility] 2021-07-13 2021-07-13 Office [facility] 1.2.840.114 [id number] 28 Univers 08:04:54 09:15:32 Visit [facility] 350.1.13.10 it y [place] [phone] [address] Office [facility] 2021-07-13 2021-07-13 Outpatient R PIPES, [facility] [id number] Univers 08:30:00 08:30:00 [facility] [place] ity [facility] 2021-07-05 2021-07-05 Elbert [facility] 1.2.840.114 [id number] Univers 00:00:00 00:00:00 Management Sendks [employer] 350.1.13.10 it[place] [phone] [address] Office [facility] 2021-07-04 2021-07-04 [facility]admini [facility] 1.2.840.114 [id number] Univers 04:52:00 17:50:00 Encounter [place] 350.1.13.10 it[place] [phone] [address] 2021-06-30 2021-06-30 Patient Fuller, [facility] 1.2.840.114 [id number] Univers 00:00:00 00:00:00 Secure Msg Nurys OVALLESWO 350.1.13.10 it[place] of [place] [phone] [place] dical AND ADULT 2 [place] [facility] 2021-06-14 2021-06-14 Patient Jonny, [facility] 1.2.840.114 [id number] Univers 00:00:00 00:00:00 Secure Msg Nurys OVALLESWO 350.1.13.10 it[place] of [place] [phone] [place] dicnh AND ADULT [address] [place] [address] [facility] 2021-06-04 2021-06-04 Office [facility] 1.2.840.114 [id number] Univers 10:04:17 13:08:06 Visit Favioderrick OVALLESWO 350.1.13.10 ity of [place] [phone] [place] dicnh AND ADULT 2 [place] [facility] 2021-06-04 2021-06-04 Outpatient Miguel FULLER [facility] [id number] Univers 10:30:00 10:30:00 ANDERSANA ity o f [facility] 2021-05-21 2021-05-21 Orders Doctor NUNO 1.2.840.114 [id number] Univers 00:00:00 00:00:00 Only Unassigned, WANDA 350.1.13.10 ity of [place] [facility] 4.2.7.2.686 Basilio as [phone] [address] 2021-05-21 2021-05-21 Orders Doctor NURYS 1.2.840.114 [id number] Univers 00:00:00 00:00:00 Only Unassigned, WANDA 350.1.13.10 ity of [place] [facility] 4.2.7.2.686 Basilio as [phone] [address] 2021-05-17 2021-05-17 Outpatient Miguel GUERIN [facility] [id number] Univers 14:00:00 16:19:36 DIEUDONNE [facility] 2021-05-17 2021-05-17 Office Apoorva [facility] 1.2.840.114 [id number] Univers 13:33:42 16:19:[address] [facility] 350.1.13.10 it y of [place] 4.2.7.2.686 Basilio as Emily?Blea [phone] Wv rakelnagi kney [address] [facility] 2021-05-17 2021-05-17 Outpatient R APOORVA [facility] [id number] [facility] 14:00:00 14:00:00 DIEUDONNE [facility] 2021-05-12 2021-05-12 Orders Doctor NURYS 1.2.840.114 [id number] [facility] 00:00:00 00:00:00 Only Unassigned, WANDA 350.1.13.10 ity of [place] [facility] 4.2.7.2.686 Basilio as [phone] [address] 2021-05-12 2021-05-12 Orders Doctor NURYS 1.2.840.114 [id number] 00:00:00 00:00:00 Only Unassigned, WANDA 350.1.13.10 [place] [facility] 4.2.7.2.686 [phone] [facility] 2021-04-29 2021-04-29 Office Steffanie [facility] 1.2.840.114 [id number] 62 Univers 12:33:16 13:56:43 Visit [facility] Nydia 350.1.13.10 i ty of [place] [phone] [place] rakelnagi bertram [address] [place] [address] 2021-04-29 2021-04-29 Office Steffanie [facility] 1.2.840.114 [id number] 62 12:33:16 13:56:43 [facility] 350.1.13.10 [place] 4.2.7.2.686 Professio [phone] [address] 2021-04-29 2021-04-29 Outpatient R TUCKER VALIENTE [facility] 10 [id number] Univers 13:00:00 13:00:00 TUCKER VALIENTE i ty of [facility] 2021-04-29 2021-04-29 Outpatient R TUCKER VALIENTE [facility] 10 [id number] Univers 10:00:00 10:00:00 TUCKER VALIENTE i ty of [facility] 2021-04-28 2021-04-28 Outpatient R TUCKER VALIENTE [facility] 10 [id number] Univers 13:00:00 13:00:00 TUCKER VALIENTE i ty of [facility] 2021-04-28 2021-04-28 [facility] 1.2.243.550 0219 6339 Univers 00:00:00 00:00:00 Only Shiwan Y HEALTH 350.1.13.10 i ty of [facility] 4.2.7.2.[place] [phone] [facility] 0[address] [place] 2021-04-28 2021-04-28 Orders Steffanie [facility] 1.2.837.447 [id number] 6339 00:00:00 00:00:00 Only Shiwan Y HEALTH 350.1.13.10 CLINICS 4.2.7.2.686 [phone] [facility] 2021-04-23 2021-04-23 Orders Doctor NURYS 1.2.840.114 [id number] Univers 00:00:00 00:00:00 Only Unassigned, WANDA 350.1.13.10 ity of [place] [facility] 4.2.7.2.686 Basilio as [phone] [facility] [address] 2021-04-20 2021-04-20 Telephone [facility] 1.2.461.108 [id number] 8208 Univers 00:00:00 00:00:00 Tucker Ontiveros 350.1.13.10 i ty of [place] [phone] [address] 2021-04-20 2021-04-20 Orders Doctor NURYS 1.2.840.114 [id number] Univers 00:00:00 00:00:00 Only Unassigned, WANDA 350.1.13.10 ity of [place] [facility] 4.2.7.2.686 Basilio as [phone] [facility] 00[address] [place] 2021-04-16 2021-04-16 Orders Doctor NURYS 1.2.840.114 [id number] Univers 00:00:00 00:00:00 Only Unassigned, WANDA 350.1.13.10 ity of [place] [facility] 4.2.7.2.686 Basilio as [phone] [facility] [address] [place] 2021-04-09 2021-04-09 Outpatient R TUCKER VALIENTE [facility] 10 [id number] Univers 09:30:00 09:30:00 TUCKER VALIENTE i ty of [facility] 2021-04-09 2021-04-09 Telephone [facility] 1.2.140.087 [id number] Univers 00:00:00 00:00:00 Tucker Ontiveros 350.1.13.10 i ty of [place] [phone] [place] dical nal 085 [facility] 2021-04-09 2021-04-09 Orders [facility] 1.2.599.068 [id number] 9613 Univers 00:00:00 00:00:[address] [facility] 350.1.13.10 i ty of [facility] 4.2.7.2.686 [place] [phone] [facility] 0[address] [place] 2021-04-07 2021-04-07 Office Ousmane [facility] 1.2.840.114 [id number] Univers 11:14:41 11:47:47 Visit Sendestelle Ontiveros 350.1.13.10 ity of [place]2.[place].2.[place] [phone] [place] dical [place]al 059 [facility] 2021-04-07 2021-04-07 Outpatient R OUSMANE [facility] [id number] Univers 11:30:00 11:30:00 SENDIL ity of [facility] 2021-03-30 2021-03-30 Telephone Steffanie [facility] 1.2.464.594 [id number] 3233 Univers 00:00:00 00:00:00 Tucker Ontiveros 350.1.13.10 i ty of [place] [phone] [place] dical nal 085 [facility] 2021-03-29 2021-03-29 Refill Ousmane [facility] 1.2.840.114 [id number] Univers 00:00:00 00:00:00 Sendil Magnolia Ontiveros 350.1.13.10 ity of [place].2.[place] [phone] [place] dicnh nal 059 [facility] 2021-03-25 2021-03-27 Emergency Karla Landeros [facility] 1.2.840 .114 [id number] Univers 15:23:00 13:10:00 Chuy Armstrong 350.1.13.10 ity of [place] [phone] [facility] 081 [place] 2021-03-24 2021-03-24 Orders Doctor NURYS 1.2.840.114 [id number] Univers 00:00:00 00:00:00 Only Unassigned, WANDA 350.1.13.10 ity of [place] [facility] 4.2.7.2.686 Basilio as [phone] [facility] [address] 2021-03-22 2021-03-22 Emergency Chevy Martin [facility] 1.2.840.114 85 [id number] Univers 17:47:00 21:19:00 Bita Ontiveros 350.1.13.10 i ty of [place].2.[place] [phone] [facility] [address] [place] 2021-03-19 2021-03-19 Office Steffanie [facility] 1.2.840.114 [id number] Univers 12:58:34 13:28:34 Visit Tucker Ontiveros 350.1.13.10 i ty of [place].2.[place] [phone] [place] dicnh nal 085 [facility] 2021-03-19 2021-03-19 Outpatient R TUCKER VALIENTE [facility] 10 [id number] Univers 13:00:00 13:00:00 TUCKER VALIENTE i ty of [facility] 2021-03-19 2021-03-19 Patient Omari, 1.2.840.1 [id number] Methodi 00:00:00 00:00:00 Outreach Ann [address]1601.1.[address] 3.430.2.7 Hospit a .3.341925 l .8 2021-03-17 2021-03-18 Emergency Hector AlvarezMariia 1.2.840.1 104 [id number] Methodi 14:59:00 17:52:00 Veda Bolanos 65421.1.[address] Matt Berkowitz 3.430.2.7 Hospita .3.922438 l .8 2021-03-17 2021-03-17 Travel 1.2.840.1 1.2.957.914 0292 [id number] Methodi 00:00:00 00:00:[address] 3.430.2.7 0.2.7.3.698 Ho spita .3.682404 084.8 l .8 2021-03-16 2021-03-16 Emergency [facility] 1.2.840.114 85 [id number] Univers 19:19:00 21:38:00 Radha Ontiveros 350.1.13.10 ity [facility] 4.2.7.2.686 [facility] [phone] [place] [address] [place] 2021-03-02 2021-03-02 Outpatient R [facility] [id number] Univers 11:30:00 11:30:[facility]-03-02 2021-03-02 [facility] [id number] Univers 11:20:00 11:20:00 [facility] 2021-03-02 2021-03-02 Telephone [facility] 1.2.241.362 [id number] Univers 00:00:00 00:00:00 Tucker Ontiveros 350.1.13.10 i ty [facility] 4.2.7.2.[address] [facility] [phone] [place] dical nal 085 [facility] 2021-02-26 2021-02-26 Outpatient HERNESTO RUSSELL [facility] [id number] Univers 09:40:00 09:40:00 HERNESTO BRIAN [facility] 2021-02-24 2021-02-24 Refanand Valiente [facility] 1.2.840.114 [id number] Univers 00:00:00 00:00:00 Tucker Ontiveros 350.1.13.10 i ty [place] [phone] [address] 2021-02-19 2021-02-20 Emergency X [facility] ERT [id number] Univers 22:25:00 00:30:00 RADHA [facility] 2021-02-19 2021-02-20 Emergency [facility] 1.2.840.114 [id number] Univers 22:25:00 00:30:00 Radha Ontiveros 350.1.13.10 ity [facility] 4.2.7.2.[place] [phone] [facility] 0[address] [place] 2021-02-10 2021-02-10 Telephone [facility] 1.2.051.863 [id number] [id number] Univers 00:00:00 00:00:00 Navi Ontiveros 350.1.13.10 ity [facility] 4.2.7.2.[place] [phone] [facility] 059 [facility] 2021-02-10 2021-02-10 Nurse NURYS Rankin 1.2.840.114 [id number] Univers 00:00:00 00:00:00 Triage Carmen VANCE 350.1.13.10 i ty of [facility] 4.2.7.2.686 Basilio as [phone] [facility] 019 [place] 2021-02-08 2021-02-08 Outpatient Miguel SHEFFIELD [facility] [id number] Univers 07:50:00 07:50:00 AVNI [facility] 2021-01-25 2021-01-25 Refill Ousmane [facility] 1.2.840.114 [id number] Univers 00:00:00 00:00:00 Sendil Magnolia Ontiveros 350.1.13.10 ity of [place].2.[place] [phone] Me dical nal 0[address] [facility] 2021-01-22 2021-01-22 Outpatient R TUCKER VALIENTE [facility] 10 [id number] Univers 15:00:00 15:00:00 TUCKER VALIENTE i ty of [facility] 2021-01-11 2021-01-12 Emergency KyleeTaydonnie Rivera [facility] 1.2.840. 114 [id number] Univers 20:43:00 04:47:00 Malika Mckeon 350.1.13.10 ity of [place].2.[place] [phone] [facility] [address] [place] 2021-01-11 2021-01-11 Outpatient [facility] [id number] Univers 07:50:00 07:50:00 ity of [facility] 2021-01-11 2021-01-11 Nurse NURYS Herring 1.2.840.114 [id number] Univers 00:00:00 00:00:00 Triage Dayana THOMPSONY 350.1.13.10 it y of [facility] 4.2.7.2.686 Basilio as [phone] [facility] 019 [place] 2020-11-13 2020-11-13 Emergency [facility] 1.2.991.530 [id number] [id number] Univers 17:55:00 22:25:00 Lillie Ontiveros 350.1.13.10 i ty of [place].2.[place] [phone] [facility] [address] [place] 2020-11-05 2020-11-05 Finishing Machine Operator 2, Adc Lab [facility] 1.2.840.114 [id number] Univers 15:31:09 15:46:09 Visit Tucker Valiente 350.1.13.10 ity of [place].2.[place] [phone] [place] dical nal 353 [facility] 2020-11-05 2020-11-05 Office Steffanie [facility] 1.2.840.114 [id number] Univers 14:22:39 15:26:25 Visit Tucker Ontiveros 350.1.13.10 i ty of [place] 4.2.7.2.[place] [phone] [place] dical [place]al 085 [facility] 2020-11-05 2020-11-05 Outpatient R TUCKER VALIENTE [facility] 10 [id number] Univers 14:40:00 14:40:00 TUCKER VALIENTE i ty of [facility] 2020-10-27 2020-10-27 Orders Doctor NURYS 1.2.840.114 [id number] Univers 00:00:00 00:00:00 Only Unassigned, WANDA 350.1.13.10 ity of [place] [facility] 4.2.7.2.686 Basilio as [phone] [address] 2020-10-23 2020-10-23 Letter [facility] 1.2.840.114 [id number] Univers 00:00:00 00:00:00 (Out) Navi Ontiveros 350.1.13.10 ity of [place].2.[place] [phone] [facility] 059 [facility] 2020-10-22 2020-10-22 Telephone [facility] 1.2.785.560 [id number] Univers 00:00:00 00:00:00 Navi Ontiveros 350.1.13.10 ity of [place] 4.[place].7.2.[place] [phone] [place] dicnh nal 059 [facility] 2020-10-22 2020-10-22 Orders Doctor NURYS 1.2.840.114 [id number] Univers 00:00:00 00:00:00 Only Unassigned, WANDA 350.1.13.10 ity of [facility] 4.2.7.2.686 Basilio as [phone] [address] 2020-10-17 2020-10-17 Emergency [facility] 1.2.452.239 [id number] Univers 15:08:00 22:39:00 Karla G Nydia 350.1.13.10 ity of [place].7.2.[place] [phone] [facility] [address] [place] 2020-10-08 2020-10-08 Telephone [facility] 1.2.807.338 5834 1409 Univers 00:00:00 00:00:00 Shiwan [place] 350.1.13.10 i ty of [place]2.7.2.[place] [phone] [place] dical nal 085 [facility] 2020-10-08 2020-10-08 Telephone [facility] 1.2.709.267 [id number] [id number] Univers 00:00:00 00:00:00 Shiwan [place] 350.1.13.10 i ty of [place] 4[place].7.2.[place] [phone] [address] 2020-10-02 2020-10-02 Office [facility] 1.2.840.114 [id number] Univers 09:32:59 10:14:43 Visit Navi Ontiveros 350.1.13.10 ity of [place] 4.2.7.2.[place] [phone] [place] dicnh nal 059 [facility] 2020-10-02 2020-10-02 Outpatient R OUSMANE [facility] [id number] Univers 10:00:00 10:00:00 SENDIL ity of [facility] 2020-09-30 2020-09-30 Telephone [facility] 1.2.969.731 [id number] Univers 00:00:00 00:00:00 Tucker Ontiveros 350.1.13.10 i ty of [place].2.[place] [phone] [place] dicnh nal [address] [place] [address] 2020-09-28 2020-09-28 Telephone [facility] 1.2.964.243 [id number] 9202 Univers 00:00:00 00:00:00 Sendestelle Merida [place] 350.1.13.10 ity of [place].7.2.[place] [phone] [place] dic[address] 2020-09-11 2020-09-11 Outpatient R [facility] [id number] Univers 13:30:00 13:30:00 ity of [facility] 2020-09-01 2020-09-01 Outpatient R [facility] [id number] Univers 14:00:00 14:00:00 ity of [facility] 2020-08-28 2020-08-28 Orders Doctor NURYS 1.2.840.114 [id number] Univers 00:00:00 00:00:00 Only Unassigned, WANDA 350.1.13.10 ity of [place] [facility] 4.2.7.2.686 Basilio as [phone] [address] 2020-08-27 2020-08-27 Telephone [facility] 1.2.897.998 [id number] 8176 Univers 00:00:00 00:00:00 Navi Ontiveros 350.1.13.10 it[place] [phone] [facility] bertram [address] [place] [address] 2020-08-24 2020-08-24 Office [facility] 1.2.840.114 [id number] Univers 10:39:32 11:28:59 Visit Navi Ontiveros 350.1.13.10 it[place] of [place].2.[place] [phone] [facility] bertram [address] [place] [address] 2020-08-24 2020-08-24 Out[facility] [id number] Univers 11:00:00 11:00:00 SENDIL ity [facility] 2020-08-24 2020-08-24 Telephone [facility] 1.2.226.633 [id number] [id number] Univers 00:00:00 00:00:00 Navi Ontiveros 350.1.13.10 it[place] [phone] [place] [address] [facility] 2020-08-19 2020-08-19 Telephone [facility] 1.2.701.652 3676 2455 [facility] 00:00:00 00:00:00 Navi Ontiveros 350.1.13.10 it[place] [phone] [address] 2020-08-10 2020-08-10 Telephone [facility] 1.2.736.463 6221 2008 [facility] 00:00:00 00:00:00 Sendestelle Ontiveros 350.1.13.10 ity of [place].7.2.[place] [phone] [address] 2020-08-10 2020-08-10 Refill [facility] 1.2.840.114 [id number] 95 [facility] 00:00:00 00:00:00 Navi Ontiveros 350.1.13.10 ity of [place].2.[place] [phone] [address] 2020-08-07 2020-08-07 Outpatient R PORFIRIO [facility] [id number] Univers 10:00:00 10:00:00 STEPHANIE whitaker [facility] 2020-08-06 2020-08-06 Nurse Visit, [facility] Nurse [facility] 1.2.840.1 14 [id number] Univers 15:31:10 16:01:10 Visit Andrews Prieto 350.1.13.10 ity [place] [phone] [address] 2020-08-06 2020-08-06 Outpatient R KAYLA [facility] [id number] Univers 16:00:00 16:00:00 ANDREWS wood [facility] 2020-08-05 2020-08-05 Office Clifford [facility] 1.2.840.114 [id number] Univers 10:16:39 10:46:04 Visit Gucci tse 350.1.13.10 ity [place]2.[place] [phone] [facility] [address] Office [address] 2020-08-05 2020-08-05 Outpatient R CLIFFORD [facility] [id number] [id number] Univers 10:20:00 10:20:00 GUCCI TSE it y of [facility] 2020-07-28 2020-07-29 Emergency Lester Andersen [facility] 1.2.840. 114 [id number] Univers 19:19:00 12:00:00 DavidyassineMalika meyers 350.1.13.10 it[place] [phone] [facility] [address] 2020-07-23 2020-07-23 Outpatient R REE [facility] [id number] 662 Univers 10:00:00 10:00:00 CLEMENTINE ity of [facility] 2020-07-23 2020-07-23 Orders Doctor NURYS 1..840.114 [id number] Univers 00:00:00 00:00:00 Only Unassigned, WANDA 350.1.13.10 ity of [facility] 4.2.7.2.686 Basilio as [phone] [facility] [address] 2020-07-22 2020-07-22 Laboratory Only, Adc Test [facility] 1.2.840. 114 [id number] Univers 12:39:03 12:54:03 Only Win Panto[place] 350.1.13.10 [place] [phone] [facility] [address] 2020-07-22 2020-07-22 Outpatient R [facility] [id number] Univers 12:45:00 12:45:00 ity of [facility] 2020-07-21 2020-07-21 Telephone Steffanie [facility] [id number] [id number] Univers 00:00:00 00:00:00 Tucker Ontiveros 350.1.13.10 i [phone] [place] 085 [facility] 2020-07-16 2020-07-16 [facility] 1.2.840.114 [id number] Univers 13:25:28 14:30:54 Visit Tucker Ontiveros 350.1.13.10 [phone] [place] 2020-07-16 2020-07-16 Outpatient R TUCKER VALIENTE [facility] [id number] Univers 13:40:00 13:40:00 TUCKER VALIENTE i ty of [facility] 2020-07-15 2020-07-15 [facility] 1.2.661.471 [id number] Univers 08:50:52 09:20:52 Visit Teofilo Ontiveros 350.1.13.10 [place] [phone] [address] 2020-07-15 2020-07-15 Outpatient R STARR SYKESNCTerrance [facility] [id number] Univers 09:00:00 09:00:00 [facility] 2020-07-13 2020-07-13 Orders Doctor NURYS 1.2.840.114 [id number] Univers 00:00:00 00:00:00 Only Unassigned, WANDA 350.1.13.10 ity of [place] [facility] 4.2.7.2.686 Basilio as [phone] [address] 2020-06-26 2020-06-26 Office Siria [facility] 1.2.840.114 [id number] Univers 09:41:27 10:20:15 Visit Hernesto Ontiveros 350.1.13.10 ity [place] [phone] [address] 2020-06-26 2020-06-26 Outpatient R HERNESTO BRIAN [facility] [id number] Univers 09:40:00 09:40:00 HERNESTO BRIAN [facility] 2020-06-22 2020-06-22 Orders Doctor NURYS 1Mariia2.840.114 [id number] Univers 00:00:00 00:00:00 Only Unassigned, WANDA 350.1.13.10 ity of [facility] 4.2.7.2.686 Basilio as [phone] [facility] [address] [place] 2020-06-19 2020-06-19 Telephone Mairaluisa Clayton 1.2.840.114 [id number] Univers 00:00:00 00:00:00 H 350.1.13.10 it y of [facility] 4.2.7.2.686 Basilio as [phone] [facility] [address] 2020-06-03 2020-06-03 Orders Doctor NURYS 1.2.840.114 [id number] Univers 00:00:00 00:00:00 Only Unassigned, WANDA 350.1.13.10 ity of [facility] 4.2.7.2.686 Basilio as [phone] [facility] [address] [place] 2020-05-13 2020-05-13 Transition Collette Pool 1.2.840.114 [id number] Univers 00:00:00 00:00:00 of Care Catie Jerez Solano 350.1.13.10 i ty of [place] [phone] [facility] 403 [address] 2020-05-10 2020-05-12 Hospital BrendanAmado 1.2.840.114 [id number] Univers 10:02:00 17:50:00 Encounter Jose Alberts 350.1.13.10 ity of [facility] 4.2.7.2.686 Bas[place] as [phone] [facility] 0[address] 2020-04-29 2020-04-29 Telephone [facility] 1.2.893.170 [id number] Univers 00:00:00 00:00:00 Navi Ontiveros 350.1.13.10 ity of [place] [phone] [facility] 059 [facility] 2020-04-14 2020-04-14 [facility] 1.2.081.718 [id number] Univers 00:00:00 00:00:00 Navi Ontiveros 350.1.13.10 ity of [place] [phone] [place] dic[place] nal 9 [facility] 2020-04-14 2020-04-14 Orders Doctor NUNO 1.2.840.114 [id number] Univers 00:00:00 00:00:00 Only Unassigned, WANDA 350.1.13.10 ity of [facility] 4.2.7.2.686 Basilio as [phone] [facility] [address] [place] 2020-04-10 2020-04-10 Office Ousmane [facility] 1.2.840.114 [id number] Univers 09:43:51 10:36:50 Visit Navi Ontiveros 350.1.13.10 ity of [place] Profess[place] [phone] [address] 2020-04-10 2020-04-10 Outpatient R OUSMANE [facility] [id number] Univers 10:00:00 10:00:00 SENDIL ity [facility] 2020-03-24 2020-03-25 Emergency Martin Horan B [facility] 1.2.840 .114 [id number] Univers 18:35:14 09:52:00 Chuy Armstrong 350.1.13.10 [place] [phone] [facility] [address] [place] [address] 2020-03-20 2020-03-20 Nurse Visit, Debra Nurse [facility] 1.2.840.1 14 [id number] Univers 13:19:22 21:03:26 Visit Navi Romeo 350.1.13. 10 ity of [place] [phone] [address] 2020-03-20 2020-03-20 Outpatient R OUSMANE [facility] [id number] Univers 13:30:00 13:30:00 SENDIL ity [facility] 2020-03-13 2020-03-13 Orders Doctor NUNO 1.2.840.114 [id number] Univers 00:00:00 00:00:00 Only Unassigned, WANDA 350.1.13.10 ity of [facility] 4.2.7.2.686 Basilio as [phone] [facility] [address] 2020-02-20 2020-02-20 Hospital KimberlyjeetGucci tse 1. 2.840.114 [id number] Univers 09:00:00 23:59:00 Encounter Anesthesia-Yana, Ep Lab [place] 350.1 .13.10 ity of Outpt-Yana, [facility] 4.2.7.2.686 [place] [phone] [facility] 039 [address] 2020-02-20 2020-02-20 Anesthesia MarieAbimbola Jannette 1.2.840. 114 [id number] Univers 15:59:00 18:03:00 Terry Rosasmir [place] 350.1.13.10 ity of [facility] 4.2.7.2.686 Basilio as [phone] [facility] [address] [place] 2020-02-20 2020-02-20 Outpatient R CLIFFORD [facility] [id number] Univers 09:00:00 09:00:00 GUCCI TSE it y of [facility] 2020-02-18 2020-02-18 Laboratory Only, Adc Test [facility] 1.2.840. 114 [id number] Univers 07:59:15 08:14:15 Only Gucci Joshi 350.1. 13.10 ity of [place].2.686 [place] [facility] [phone] [place] dical [facility] 353 [facility] 2020-02-18 2020-02-18 Outpatient R [facility] [id number] Univers 08:00:00 08:00:00 ity of [facility] 2020-02-18 2020-02-18 Telephone [facility] 1.2.840.114 [id number] Univers 00:00:00 00:00:00 Gucci tse 350.1.13.10 ity of [place].2.[place] [facility] [phone] [facility] Primary & 059 Branch Specialty Care 2020-02-18 2020-02-18 Telephone [facility] 1.2.840.114 [id number] Univers 00:00:00 00:00:00 Gucci tse Health 350.1.13.10 ity of [place] [phone] [place] [address] Branch Office Building 2020-02-18 2020-02-18 Telephone Clifford Bhatia 1.2.840.114 [id number] Univers 00:00:00 00:00:00 Gucci tse [place] 350.1.13.10 ity of Hospital 4.2.7.2.686 Basilio as [phone] [address] 2019-12-19 2019-12-19 Outpatient R STEVENGUILLERMOJEET [facility] [id number] Univers 09:00:00 09:00:00 CARMENCITAGUCCI it y of [facility] 2019-12-18 2019-12-18 Patient Caroline [facility] 1.2.840.114 [id number] Univers 00:00:00 00:00:00 [facility] 350.1.13.10 ity of [place].2.7.2.686 [place] [facility] [phone] [facility] Primary & 365 Branch Specialty Care 2019-12-18 2019-12-18 Telephone Clifford Bhatia 1.2.840.114 [id number] Univers 00:00:00 00:00:00 Gucci tse 350.1.13.10 ity of Hospital 4.2.7.2.686 [place] as [phone] [address] 2019-12-16 2019-12-16 Telephone Levitljeet [facility] 1.2.840.114 [id number] Univers 00:00:00 00:00:00 Gucci tse Health 350.1.13.10 ity of [place] [phone] [place] [address] Branch Office Building 2019-12-13 2019-12-13 Telephone Ousmane [facility] 1.2.430.367 [id number] Univers 00:00:00 00:00:00 Navi Ontiveros 350.1.13.10 ity of [place] Profess[place] [phone] [place] dical nal 059 [facility] 2019-12-12 2019-12-12 Telephone Clifford Bhatia 1.2.840.114 [id number] Univers 00:00:00 00:00:00 Gucci tse Wanda 350.1.13.10 ity of Hospital 4.2.7.2.686 [place] as [phone] [facility] [address] [place] 2019-12-10 2019-12-10 Finishing Machine Operator 2, Adc Lab [facility] 1.2.840.114 [id number] Univers 15:05:33 15:20:33 Visit Navi Romeo 350.1.13. 10 ity of [place] [phone] [place] dical nal 353 [facility] 2019-12-10 2019-12-10 Office Ousmane [facility] 1.2.840.114 [id number] Univers 13:51:26 14:58:10 Visit Navi Ontiveros 350.1.13.10 ity of [place] [phone] [place] dical [place]al 059 [facility] 2019-12-10 2019-12-10 Outpatient R OUSMANE [facility] [id number] Univers 14:30:00 14:30:00 SENDIL ity of [facility] 2019-12-10 2019-12-10 Orders Doctor NUNO 1.2.840.114 [id number] Univers 00:00:00 00:00:00 Only Unassigned, WANDA 350.1.13.10 ity of [facility] 4.2.7.2.686 Basilio as [phone] [facility] [address] [place] 2019-12-09 2019-12-09 Outpatient R [facility] [id number] Univers 15:00:00 15:00:00 ity of [facility] 2019-12-02 2019-12-02 Office Kayy [facility] 1.2.840.114 [id number] Univers 10:34:53 11:13:36 Visit Love Ontiveros 350.1.13.10 i ty of [place] [facility] [phone] [place] dical nal 204 Branch Building 2019-12-02 2019-12-02 Outpatient R KAYY [facility] [id number] Univers 11:00:00 11:00:00 LOVE ity of [facility] 2019-11-27 2019-11-27 Orders Doctor NUNO 1.2.840.114 [id number] Univers 00:00:00 00:00:00 Only Unassigned, WANDA 350.1.13.10 ity of [facility] 4.2.7.2.686 Basilio as [phone] [facility] [address] [place] 2019-11-26 2019-11-26 Outpatient R CLIFFORD [facility] [id number] Univers 11:20:00 11:20:00 GUCCI TSE it y of [facility] 2019-11-26 2019-11-26 Office [facility] 1.2.840.114 [id number] Univers 10:12:22 10:32:22 Visit Gucci tse [facility] 350.1.13.10 ity of [place]2.7.2.[place] [phone] [facility] [address] [place] Office Building 2019-11-22 2019-11-22 Outpatient R [facility] [id number] Univers 13:15:00 13:15:00 ity of [facility] 2019-11-16 2019-11-16 Emergency [facility] 1.2.840.114 [id number] Univers 17:37:27 19:09:00 Panda Ontiveros 350.1.13.10 ity of [place] [phone] [facility] 0[address] 2019-11-16 2019-11-16 Emergency [facility] [id number] Univers 17:37:27 19:09:00 FOLUSHO ity of [facility] 2019-11-16 2019-11-16 Emergency [facility] E[facility] [id number] Univers 17:37:27 19:09:00 FOLUSHO ity of [facility] 2019-11-16 2019-11-16 Orders Doctor NUNO 1.2.840.114 [id number] Univers 00:00:00 00:00:00 Only Unassigned, WANDA 350.1.13.10 ity of [facility] 4.2.7.2.686 Basilio as [phone] [facility] [address] [place] 2019-11-12 2019-11-12 Orders Doctor NUNO 1.2.840.114 [id number] Univers 00:00:00 00:00:00 Only Unassigned, WANDA 350.1.13.10 ity of [facility] 4.2.7.2.686 Basilio as [phone] [facility] [address] [place] 2019-11-06 2019-11-07 Emergency Morrical, TRAUMA 1.2.840.114 [id number] Univers 20:10:11 02:33:00 [facility] 350.1.13.10 it[place] [phone] [facility] [address] [place] 2019-11-06 2019-11-07 Emergency X MORRICAL, [facility] ERT [id number] Univers 20:10:11 02:33:00 [facility] 2019-11-06 2019-11-07 Emergency X MORRICAL, [facility] ERT [id number] Univers 20:10:11 02:33:00 [facility] 2019-11-06 2019-11-06 Nurse Ileana NUNO 1.2.840.114 [id number] Univers 00:00:00 00:00:00 Triage dDeja 350.1.13.10 ity of [facility] 4.2.7.2.686 Basilio as [phone] [facility] [address] [place] 2019-11-04 2019-11-04 Telephone Ousmane, [facility] 1.2.463.523 [id number] Univers 00:00:00 00:00:00 Navi Ontiveros 350.1.13.10 ity of [place] [phone] [place] [address] [facility] 2019-11-04 2019-11-04 Telephone Clifford [facility] 1.2.840.114 [id number] Univers 00:00:00 00:00:00 carmencitaDewayneg Health 350.1.13.10 ity of [place] [phone] [place] [address] Branch Office Building 2019-11-02 2019-11-02 Larisa Romeo [place] 1.2.840.114 [id number] Univers 00:00:00 00:00:00 Sendestelle Ontiveros 350.1.13.10 ity of [place]2.[place] [phone] [place] dical nal 9 Branch Building 2019-10-31 2019-10-31 Transition Collette Pool 1.2.840.114 [id number] Univers 00:00:00 00:00:00 of Care Catie Solano 350.1.13.10 i ty of [place]2.7.2.[place] [phone] [facility] 403 [address] 2019-10-28 2019-10-30 Hospital Chevy Martin [facility] 1.2.840.1 14 [id number] Univers 15:18:49 15:27:00 Encounter Chuy Armstrong Health 350.1.13.10 ity of [place] 4.2.7.2.686 [place] Stack [phone] [facility] 111 [address] ([facility] 2019-10-28 2019-10-28 Telephone Clifford [facility] 1.2.840.114 [id number] Univers 00:00:00 00:00:00 carmencita Gucci Health 350.1.13.10 ity of [place] [phone] [place] [address] Branch Office Building 2019-10-28 2019-10-28 Telephone Carmerrynnopo [facility] 1.2.840.114 [id number] Univers 00:00:00 00:00:00 carmencitaGucci Health 350.1.13.10 ity of [place]2.[place] [phone] [place] [address] Branch Office Building 2019-10-10 2019-10-10 Telephone Al [place] 1.2.291.079 [id number] Univers 00:00:00 00:00:00 Hanjamisonnebrandon, SPECIALTY 350.1.13.10 ity of [place] CARE 4.2.7.2.686 Basilio as CENTER AT [phone] [place] jass KRISHNAMURTHY [address] [place] [address] 2019-10-08 2019-10-08 Office Carayaguillermoopo [facility] 1.2.840.114 [id number] Univers 08:25:08 09:54:25 Visit Gucci tse [facility] 350.1.13.10 ity of [place]2.[place] [phone] [address] Office Building 2019-10-07 2019-10-07 Telephone Al [facility] 1.2.488.373 [id number] Univers 00:00:00 00:00:00 Hankenzie, SPECIALTY 350.1.13.10 ity of [place] CARE 4.2.7.2.686 [place] as CENTER AT [phone] [place] jass KRISHNAMURTHY [address] [place] [address] 2019-09-28 2019-09-28 Emergency X ALIZA [facility] ERT [id number] Univers 16:26:45 18:51:00 RADHA [facility] 2019-08-25 2019-08-25 Emergency X LETI [facility] ERT [id number] Univers 17:05:08 22:20:00 KARLA [facility] 2019-05-17 2019-06-06 Nurse Visit, Debra Nurse [facility] 1.2.840.1 14 [id number] Univers 13:03:18 13:00:43 Visit Navi Romeo 350.1.13. 10 ity of [place].2.686 [place] [facility] [phone] [address] 2019-05-30 2019-05-30 Emergency Kenny [facility] 1.2.401.605 [id number] Univers 17:28:30 19:30:00 Tucker Ontiveros 350.1.13.10 i ty of [place].2.[place] [phone] [address] 2019-05-30 2019-05-30 Orders Doctor NURYS 1.2.840.114 [id number] Univers 00:00:00 00:00:00 Only Unassigned, WANDA 350.1.13.10 ity of [place] [facility] 4.2.7.2.686 Basilio as [phone] [facility] [address]9 [address] 2019-05-30 2019-05-30 Telephone Romeo [facility] 1.2.769.632 [id number] Univers 00:00:00 00:00:00 Navi Ontiveros 350.1.13.10 ity of [place] [phone] [place] jass burden [address] [place] [address] 2019-05-29 2019-05-29 Telephone Ousmane [facility] 1.2.282.532 [id number] Univers 00:00:00 00:00:00 Navi Merida [facility] 350.1.13.10 ity of [place].2.[place].2.686 [place] [phone] [facility] Primary & 9 Branch Specialty Care 2019-05-21 2019-05-21 Telephone Ousmane [facility] 1.2.276.320 [id number] Univers 00:00:00 00:00:00 Navi Ontiveros 350.1.13.10 ity of [place].2.[place] Profess[place] [phone] [place] jass burden [address] [place] [address] 2019-05-20 2019-05-20 Telephone [facility] 1.2.010.446 [id number] Univers 00:00:00 00:00:00 Hanaynunu, SPECIALTY 350.1.13.10 ity of [facility] 4.2.7.2.686 [place] as CENTER AT [phone] [place] jass [address] 2019-05-17 2019-05-17 Office Ousmane [facility] 1.2.840.114 [id number] Univers 11:20:13 13:04:27 Visit Navi Ontiveros 350.1.13.10 ity of [place]2.[place] [phone] [place] jass burden 059 [facility] 2019-05-16 2019-05-16 Telephone Al [facility] 1.2.013.327 [id number] Univers 00:00:00 00:00:00 Brit, SPECIALTY 350.1.13.10 ity of [place] CARE 4.2.7.2.686 [place] as CENTER AT [phone] [place] jass KRISHNAMURTHY [address] [place] [address] 2019-05-16 2019-05-16 Orders Doctor NURYS 1.2.840.114 [id number] Univers 00:00:00 00:00:00 Only Unassigned, WANDA 350.1.13.10 ity of [facility] 4.2.7.2.686 Basilio as [phone] [address] 2019-05-02 2019-05-02 Office Al [facility] 1.2.840.114 [id number] Univers 08:21:14 09:21:07 Visit Brit, SPECIALTY 350.1.13.10 ity of [place] CARE 4.2.7.2.686 [place] as CENTER AT [phone] [place] jass KRISHNAMURTHY [address] [place] [address] 2019-04-29 2019-04-29 Emergency [facility], [facility] 1.2.840.114 [id number] Univers 21:30:23 23:42:00 Fauzia Ontiveros 350.1.13.10 ity of [place] [phone] [address] 2019-04-25 2019-04-26 Emergency Yariwa, [facility] 1.2.178.278 [id number] Univers 23:02:39 01:24:00 Andie Ontiveros 350.1.13.10 ity of [place].2.[place] [phone] [address] 2019-04-26 2019-04-26 Refanand Brian, [facility] 1.2.840.114 [id number] Univers 00:00:00 00:00:00 Hernesto Ontiveros 350.1.13.10 ity of [place].2.[place] [phone] [address] 2019-04-24 2019-04-24 Refill [facility] 1.2.840.114 [id number] Univers 00:00:00 00:00:00 Hernesto Ontiveros 350.1.13.10 ity of [place] [phone] [address] 2019-04-23 2019-04-23 Refill [facility] 1.2.840.114 [id number] Univers 00:00:00 00:00:00 Hernesto Ontiveros 350.1.13.10 ity of [place]2.[place] [phone] [address] 2019-04-22 2019-04-22 Office Siria [facility] 1.2.840.114 [id number] Univers 14:31:27 15:41:53 Visit Hernesto Ontiveros 350.1.13.10 ity of [place].2.[place] [phone] [address] 2019-04-22 2019-04-22 Orders Doctor NURYS 1.2.840.114 [id number] Univers 00:00:00 00:00:00 Only Unassigned, WANDA 350.1.13.10 ity of [facility] 4.2.7.2.686 [place]ilio as [phone] [place] [address] Branch 2017-09-06 2017-09-08 [id number] [address] 10:12:00 02:32:00 [facility] Results Test Description Test Time Test Comments Results Result Comments Source CBC WITH DIFF 2023-01-24 06:11:14 Test Item Value Reference Range Interpretation Comme nts WBC (test code = 6690-2) 3.65 See_Comment L [A utomated message] The system which ge nerated this result transmit aida reference range: 4.30 - 1 1.10 10*3/?L. The reference r soumya was not used to interpr et this result as normal/abnor mal. RBC (test code = 789-8) 5.40 See_Comment H [Au tomated message] The system which [employer] nerated this result transmit aida reference range: 3.93 - 5 .25 10*6/?L. The reference r soumya was not used to interpr et this result as normal/abnor mal. HGB (test code = 718-7) 15.1 g/dL 11.6-15.0 H HCT (test code = 4544-3) 46.7 % 35.7-45.2 H MCV (test code = 787-2) 86.5 fL 80.6-95.5 MCH (test code = 785-6) 28.0 pg 25.9-32.8 MCHC (test code = 786-4) 32.3 g/dL 31.6-35.1 RDW-SD (test code = 35525-4) 40.2 fL 39.0-49.9 RDW-CV (test code = 788-0) 13.0 % 12.0-15.5 PLT (test code = 777-3) 187 See_Comment [Au tomated message] The system which [employer] nerated this result transmit aida reference range: 166 - 35 8 10*3/?L. The reference range was not used to interpret th is result as normal/abnormal . MPV (test code = 43665-7) 10.1 fL 9.5-12.9 NRBC/100 WBC (test code = 0.0 See_Comment [ Automated message] The [id number]) system which [employer] nerated this result transmit aida reference range: 0.0 - 10 .0 /100 WBCs. The reference r soumya was not used to interpr et this result as normal/abnor mal. NRBC x10^3 (test code = See_Comment [Au tomated message] The 2621045978) system which [employer] nerated this result transmit aida reference range: 10*3/?L. The reference range was not u sed to interpret this result as normal/abnormal . GRAN MAT (NEUT) % (test code 69.4 % = 770-8) IMM GRAN % (test code = 1.10 % 6630508259) LYMPH % (test code = 736-9) 21.1 % MONO % (test code = 5905-5) 7.9 % EOS % (test code = 713-8) 0.0 % BASO % (test code = 706-2) 0.5 % GRAN MAT x10^3(ANC) (test 2.53 10*3/uL 1.88-7.09 code = 6410417793) IMM GRAN x10^3 (test code = 0.04 10*3/uL 0.00-0.06 6465647682) LYMPH x10^3 (test code = 0.77 10*3/uL 1.32-3.29 L 731-0) MONO x10^3 (test code = 0.29 10*3/uL 0.33-0.92 L 742-7) EOS x10^3 (test code = 0.03-0.39 L 711-2) BASO x10^3 (test code = 0.01-0.07 704-7) Lab Interpretation (test Abnormal code = 70444-7) [facility] [id number] 11:26:01 Test Item Value Reference Range Interpretation Comments TROPONIN I (test code = 0.000 ng/mL <=0.034 9463848992) SOMMER (test code = SOMMER) Reference (Normal) [...] biotin. Lab Interpretation Normal (test code = 17177-0) [facility] [id number] 17:47:39 Test Item Value Reference Range Interpretation Comments TROPONIN I (test code = 0.002 ng/mL <=0.034 5426833865) SOMMER (test code = SOMMER) Reference (Normal) [...] biotin. Lab Interpretation Normal (test code = 77617-9) [facility]. METABOLIC PANEL (42759)2022-12-06 17:36:59 Test Item Value Reference Range Interpretation Comments NA (test code = 136 mmol/L 135-145 9909367451) K (test code = 4.3 mmol/L 3.5-5.0 3685080267) CL (test code = 102 mmol/L 98-108 9237559457) CO2 TOTAL (test code = 23 mmol/L 23-31 8377838356) AGAP (test code = 11 2-16 5378375003) BUN (test code = 13 mg/dL 7-23 7175431632) GLUCOSE (test code = 133 mg/dL 70-110 H 9522067903) CREATININE (test code = 0.58 mg/dL 0.50-1.04 3534066740) TOTAL BILI (test code = 0.5 mg/dL 0.1-1.3 0242970155) CALCIUM (test code = 10.0 mg/dL 8.6-10.6 5830162355) T PROTEIN (test code = 7.5 g/dL 6.3-8.2 0228114190) ALBUMIN (test code = 4.5 g/dL 3.5-5.0 3518037866) ALK PHOS (test code = 105 U/L 34-122 3955871690) ALTv (test code = 22 U/L 5-35 1742-6) AST(SGOT) (test code = 23 U/L 13-40 3144608189) eGFR (test code = 114.6 mL/min/1.73m2 1583902692) SOMMER (test code = SOMMER) Association of [...] tests). Lab Interpretation Abnormal (test code = 67811-1) [facility] WITH [id number] 17:27:57 Test Item Value Reference Range Interpretation Comments WBC (test code = 10.92 See_Comment [Automated 1751-2) message] The sy stem which generated this result transmitted reference range : 4.30 - 11.10 10*3/?L. The reference range was not used to interpret this result as normal/abnormal . RBC (test code = 4.99 See_Comment [Automated 537-8) message] The sy stem which generated this result transmitted reference range : 3.93 - 5.25 10*6/?L. The reference range was not used to interpret this result as normal/abnormal . HGB (test code = 14.4 g/dL 11.6-15.0 718-7) HCT (test code = 43.5 % 35.7-45.2 4544-3) MCV (test code = 87.2 fL 80.6-95.5 787-2) MCH (test code = 28.9 pg 25.9-32.8 785-6) MCHC (test code = 33.1 g/dL 31.6-35.1 786-4) RDW-SD (test code = 39.3 fL 39.0-49.9 78712-5) RDW-CV (test code = 12.4 % 12.0-15.5 788-0) PLT (test code = 311 See_Comment [Automated 777-3) message] The sy stem which generated this result transmitted reference range : 166 - 358 10*3/ ?L. The reference r souyma was not used to interpret this result as normal/abnormal . MPV (test code = 10.0 fL 9.5-12.9 88785-1) NRBC/100 WBC (test 0.0 See_Comment [Automat ed code = [id number]) message] The system which generated this result transmitted reference range : 0.0 - 10.0 /100 WBCs. The refer ence range was not u sed to interpret th is result as normal/abnormal . NRBC x10^3 (test code See_Comment [Auto mated = [id number]) message] The s ystem which generated this result transmitted reference range : 10*3/?L. The reference range was not used to interpret this result as normal/abnormal . GRAN MAT (NEUT) % 81.3 % (test code = 770-8) IMM GRAN % (test code 0.40 % = [id number]) LYMPH % (test code = 15.8 % 736-9) MONO % (test code = 2.2 % 5905-5) EOS % (test code = 0.1 % 713-8) BASO % (test code = 0.2 % 706-2) GRAN MAT x10^3(ANC) 8.89 10*3/uL 1.88-7.09 H (test code = [id number]) IMM GRAN x10^3 (test 0.04 10*3/uL 0.00-0.06 code = [id number]) LYMPH x10^3 (test code 1.72 10*3/uL 1.32-3.29 = 731-0) MONO x10^3 (test code 0.24 10*3/uL 0.33-0.92 L = 742-7) EOS x10^3 (test code = 0.03-0.39 L 711-2) BASO x10^3 (test code 0.01-0.07 = 704-7) Lab Interpretation Abnormal (test code = 06734-7) [facility] 03:01:16 Test Item Value Reference Range Interpretation Comments POCT GLU (test code = 1163901755) 157 mg/dL 70-110 H Lab Interpretation (test code = Abnormal 84787-1) [facility] Metabolic Panel (NA, K, CL, CO2, GLUCOSE, BUN, CREATININE, CA)2022-09-24 12:21:50 Test Item Value Reference Range Interpretation Comments NA (test code = 138 mmol/L 135-145 1525861337) K (test code = 4.0 mmol/L 3.5-5.0 8590177054) CL (test code = 111 mmol/L 98-108 H 3425328952) CO2 TOTAL (test code = 19 mmol/L 23-31 L 3733951455) AGAP (test code = 2-16 1212473546) BUN (test code = 6 mg/dL 7-23 L 8312563509) GLUCOSE (test code = 139 mg/dL 70-110 H 6761395631) CREATININE (test code = 0.46 mg/dL 0.50-1.04 L 0013357358) CALCIUM (test code = 8.0 mg/dL 8.6-10.6 L 9955394363) eGFR (test code = mL/min/1.73m2 6470449184) SOMMER (test code = SOMMER) Association of [...] tests). Lab Interpretation Abnormal (test code = 40592-7) [facility] CampusMagnesium [id number] 12:21:50 Test Item Value Reference Range Interpretation Comments MAGNESIUM (test code = 8147186942) 2.2 mg/dL 1.7-2.4 Lab Interpretation (test code = Normal 92254-1) [facility] CampusPhosphorus [id number] 12:21:30 Test Item Value Reference Range Interpretation Comments PHOSPHORUS (test code = 9321198766) 2.9 mg/dL 2.5-5.0 Lab Interpretation (test code = Normal 51994-8) [facility] CampusCBC with [id number] 12:08:57 Test Item Value Reference Range Interpretation Comments WBC (test code = See_Comment L [Automated 5914-2) message] The sy stem which generated this result transmitted reference range : 4.30 - 11.10 10*3/?L. The reference range was not used to interpret this result as normal/abnormal . RBC (test code = See_Comment [Automated 538-8) message] The sy stem which generated this result transmitted reference range : 3.93 - 5.25 10*6/?L. The reference range was not used to interpret this result as normal/abnormal . HGB (test code = 13.4 g/dL 11.6-15.0 718-7) HCT (test code = 41.1 % 35.7-45.2 4544-3) MCV (test code = 88.6 fL 80.6-95.5 787-2) MCH (test code = 28.9 pg 25.9-32.8 785-6) MCHC (test code = 32.6 g/dL 31.6-35.1 786-4) RDW-SD (test code = 41.8 fL 39.0-49.9 81314-5) RDW-CV (test code = 12.9 % 12.0-15.5 788-0) PLT (test code = See_Comment L [Automated 777-3) message] The sy stem which generated this result transmitted reference range : 166 - 358 10*3/ ?L. The reference r soumya was not used to interpret this result as normal/abnormal . MPV (test code = 11.1 fL 9.5-12.9 95201-3) NRBC/100 WBC (test See_Comment [Automat ed code = 7380526058) message] The system which generated this result transmitted reference range : 0.0 - 10.0 /100 WBCs. The refer ence range was not u sed to interpret th is result as normal/abnormal . NRBC x10^3 (test code See_Comment [Auto mated = 5827688646) message] The s ystem which generated this result transmitted reference range : 10*3/?L. The reference range was not used to interpret this result as normal/abnormal . GRAN MAT (NEUT) % 78.0 % (test code = 770-8) IMM GRAN % (test code 0.50 % = 7928481363) LYMPH % (test code = 16.2 % 736-9) MONO % (test code = 4.7 % 5905-5) EOS % (test code = 0.3 % 713-8) BASO % (test code = 0.3 % 706-2) GRAN MAT x10^3(ANC) 2.85 10*3/uL 1.88-7.09 (test code = 8487452213) IMM GRAN x10^3 (test 0.00-0.06 code = 8432526007) LYMPH x10^3 (test code 0.59 10*3/uL 1.32-3.29 L = 731-0) MONO x10^3 (test code 0.17 10*3/uL 0.33-0.92 L = 742-7) EOS x10^3 (test code = 0.03-0.39 L 711-2) BASO x10^3 (test code 0.01-0.07 = 704-7) Lab Interpretation Abnormal (test code = 12098-7) [facility] CampusTROPONIN [id number] 23:55:54 Test Item Value Reference Interpretation Comments Range TROPONIN I (test 0.002 ng/mL See_Comment [Automated code = 5999286104) message] The system which generated this result [...] biotin. Lab Interpretation Normal (test code = 36812-0) [facility] WITH [id number] 23:48:10 Test Item Value Reference Range Interpretation Comments WBC (test code = See_Comment [Automated 5490-2) message] The sy stem which generated this result transmitted reference range : 4.30 - 11.10 10*3/?L. The reference range was not used to interpret this result as normal/abnormal . RBC (test code = See_Comment [Automated 415-8) message] The sy stem which generated this result transmitted reference range : 3.93 - 5.25 10*6/?L. The reference range was not used to interpret this result as normal/abnormal . HGB (test code = 13.5 g/dL 11.6-15.0 718-7) HCT (test code = 40.3 % 35.7-45.2 4544-3) MCV (test code = 85.2 fL 80.6-95.5 787-2) MCH (test code = 28.5 pg 25.9-32.8 785-6) MCHC (test code = 33.5 g/dL 31.6-35.1 786-4) RDW-SD (test code = 39.2 fL 39.0-49.9 96783-4) RDW-CV (test code = 12.7 % 12.0-15.5 788-0) PLT (test code = See_Comment [Automated 777-3) message] The sy stem which generated this result transmitted reference range : 166 - 358 10*3/ ?L. The reference r soumya was not used to interpret this result as normal/abnormal . MPV (test code = 11.2 fL 9.5-12.9 49229-5) IPF % (test code = 4.2 % 1.3-7.7 Platelet count 8078523268) measured by fluorescence method. NRBC/100 WBC (test See_Comment [Automat ed code = 2165968300) message] The system which generated this result transmitted reference range : 0.0 - 10.0 /100 WBCs. The refer ence range was not u sed to interpret th is result as normal/abnormal . NRBC x10^3 (test code See_Comment [Auto mated = 9025971080) message] The s ystem which generated this result transmitted reference range : 10*3/?L. The reference range was not used to interpret this result as normal/abnormal . GRAN MAT (NEUT) % 61.1 % (test code = 770-8) IMM GRAN % (test code 0.20 % = 1893188827) LYMPH % (test code = 24.7 % 736-9) MONO % (test code = 12.9 % 5905-5) EOS % (test code = 0.7 % 713-8) BASO % (test code = 0.4 % 706-2) GRAN MAT x10^3(ANC) 2.80 10*3/uL 1.88-7.09 (test code = 8540155442) IMM GRAN x10^3 (test 0.00-0.06 code = 8898641894) LYMPH x10^3 (test code 1.13 10*3/uL 1.32-3.29 L = 731-0) MONO x10^3 (test code 0.59 10*3/uL 0.33-0.92 = 742-7) EOS x10^3 (test code = 0.03 10*3/uL 0.03-0.39 711-2) BASO x10^3 (test code 0.01-0.07 = 704-7) Lab Interpretation Abnormal (test code = 40715-8) [facility]. METABOLIC PANEL (02469)2022-09-23 23:44:52 Test Item Value Reference Range Interpretation Comments NA (test code = 139 mmol/L 135-145 8501562254) K (test code = 3.7 mmol/L 3.5-5.0 7274789869) CL (test code = 107 mmol/L 98-108 5650529365) CO2 TOTAL (test code 23 mmol/L 23-31 = 5775358385) AGAP (test code = 2-16 1181140606) BUN (test code = 7 mg/dL 7-23 6883843538) GLUCOSE (test code = 99 mg/dL 70-110 1913009032) CREATININE (test code 0.58 mg/dL 0.50-1.04 = 1690788576) TOTAL BILI (test code 0.4 mg/dL 0.1-1.1 = 7377344575) CALCIUM (test code = 8.6 mg/dL 8.6-10.6 1889037423) T PROTEIN (test code 7.1 g/dL 6.3-8.2 = 0937988836) ALBUMIN (test code = 4.3 g/dL 3.5-5.0 2872310315) ALK PHOS (test code = 87 U/L 34-122 7198698402) ALTv (test code = 23 U/L 5-35 1742-6) AST(SGOT) (test code 27 U/L 13-40 = 1965538744) eGFR (test code = mL/min/1.73m2 9118821237) SOMMER (test code = SOMMER) Association of [...] or urine or abnormalities in imaging tests). [facility] (NA, K, CL, CO2, GLUCOSE, BUN, CREATININE, CA)2022-09-07 10:24:51 Test Item Value Reference Range Interpretation Comments NA (test code = 138 mmol/L 135-145 1924375012) K (test code = 4.1 mmol/L 3.5-5.0 2002940628) CL (test code = 106 mmol/L 98-108 0141432410) CO2 TOTAL (test code 26 mmol/L 23-31 = 5858989710) AGAP (test code = 2-16 1490820125) BUN (test code = 16 mg/dL 7-23 6722649364) GLUCOSE (test code = 109 mg/dL 70-110 8700497858) CREATININE (test code 0.67 mg/dL 0.50-1.04 = 4521873345) CALCIUM (test code = 8.6 mg/dL 8.6-10.6 1768949707) eGFR (test code = mL/min/1.73m2 5396800396) SOMMER (test code = SOMMER) Association of [...] or urine or abnormalities in imaging tests). [facility] CampusLIPID PANEL (40948)(TOTAL CHOLESTEROL, TRIGLYCERIDES, HDL)2022-09-07 10:24:51 Test Item Value Reference Range Interpretation Comments CHOL (test code = 232 mg/dL 120-200 H 9023267287) HDL (test code = 30 mg/dL See_Comment L [Automated message] 6609782352) The system [employer] generated this result transmit aida reference range : >=50. The refer ence range was not u sed to interpret th is result as normal/abnormal . HDLC RATIO (test code = See_Comment H [Au tomated message] 6712734013) The system [employer] generated this result transmit aida reference range : <=4.5. The refe rence range was not u sed to interpret th is result as normal/abnormal . TRIG (test code = 216 mg/dL 30-170 H 4410975322) LDL CHOL (test code = 159 mg/dL See_Comment [Auto mated message] 18430-9) The system [employer] generated this result transmit aida reference range : <=160. The refe rence range was not u sed to interpret th is result as normal/abnormal . VLDL (test code = 43 mg/dL 5-60 3685448373) Lab Interpretation (test Abnormal code = 52104-9) [facility]LIP[facility] (28060)(TOTAL CHOLESTEROL, TRIGLYCERIDES, HDL)2022-09-07 10:24:51 Test Item Value Reference Range Interpretation Comments CHOL (test code = 232 mg/dL 120-200 H 6128736560) HDL (test code = 30 mg/dL See_Comment L [Automated message] 0293734542) The system [employer] generated this result transmit aida reference range : >=50. The refer ence range was not u sed to interpret th is result as normal/abnormal . HDLC RATIO (test code = See_Comment H [Au tomated message] 3060507414) The system [employer] generated this result transmit aida reference range : <=4.5. The refe rence range was not u sed to interpret th is result as normal/abnormal . TRIG (test code = 216 mg/dL 30-170 H 3224808555) LDL CHOL (test code = 159 mg/dL See_Comment [Auto mated message] 30367-3) The system [employer] generated this result transmit aida reference range : <=160. The refe rence range was not u sed to interpret th is result as normal/abnormal . VLDL (test code = 43 mg/dL 5-60 8146943859) Lab Interpretation (test Abnormal code = 21055-8) [facility] CampusTransthoracic echo (TTE)2022-09-06 21:15:48 Test Item Value Reference Range Interpretation Comments BSA (test code = 1.51 m2 4031457986) Height (test code = in 5820061133) Weight (test code = lbs 8381990133) Systolic BP (test code = mmHg 6327027047) Diastolic BP (test code mmHg = 1818010424) Heart Rate (test code = bpm 8065614156) LVOT stroke volume (test 53.10 cm3 code = 2729700187) EF(Teich) (test code = 53.10 % 2195987924) LVIDD (test code = 3.10 cm 4904488330) LVIDS (test code = 2.27 cm 0665819949) Left Ventricular End 17.5 mL Systolic Volume by Teichholz Method (test code = 3657746) Left Ventricular End 37.3 mL Diastolic Volume by Teichholz Method (test code = 7230235) IVS (test code = 0.71 cm 8916218593) LVPWD (test code = 0.66 cm 4358549901) LVOT diameter (test code 2.03 cm = 9341399321) LVOT area (test code = 3.20 cm2 2642427070) FS (test code = 26 % 7314604171) MV Peak E Eris (test code 67.3 cm/s = 7548276088) MV Peak A Eris (test code 79.3 cm/s = 7254729235) E/A ratio (test code = ratio 9904344376) E wave decelartion time 0.17 s (test code = 3595225375) MV E/e' septal (test 7.7 cm/s code = 0712336114) LA Volume Index (BP) 15.0 mL/m2 (test code = 3463854940) LA volume (BP) (test 22.7 mL code = 2028941542) LVOT peak eris (test code 95.1 cm/s = 2143862507) LVOT mn grad (test code mmHg = 9811897614) LA size (test code = 3.1 cm 9874638382) LAV(MOD-sp2) (test code 17.30 mL = 7518751494) LAV(MOD-sp4) (test code 24.90 mL = 6624468545) Tapse (test code = 2.48 cm 2247703216) AV LVOT peak gradient mmHg (test code = 5876187636) LVOT peak VTI (test code 16.3 cm = 4850717696) LV V1 mean (test code = 62.50 cm/s 6447128748) MV Prop V (test code = 54.20 cm/s 4666989178) TR Peak Eris (test code = 196.1 cm/s 8694897361) Triscuspid Valve mmHg Regurgitation Peak Gradient (test code = 6884663353) Ao root diam (test code 2.80 cm = 2459545951) Aortic root (test code = 2.8 cm 3775196541) Ao root annulus (test 2.8 cm code = 2498621875) PW (test code = 0.66 cm 0.6-1.4 2075756212) EF - 2D (test code = 53.10 % 04761958) Interventricular Septum 0.71 cm Diastolic Thickness by 2D (test code = 7811872) Radiology Study observation (narrative) (test code = 17178-8) SOMMER (test code = SOMMER) ?Left?Ventricle: Left ventricle size is normal. Increased wall thickness. There is concentric remodeling (RWT 0.4222). Normal wall motion. Normal systolic function with a visually estimated EF of 55 - 60%. Normal diastolic function. ?Left?Atrium: Left atrium size is normal. Inconclusive bubble study, unable to rule out PFO. Consider DEEPIKA if clinically indicated. ?Tricuspid?Valve: Tricuspid valve structure is normal. Insufficient tricuspid regurgitation jet to estimate RVSP.Trace transvalvular regurgitation. ?IVC/SVC: IVC diameter is less than or equal to 21 mm and decreases greater than 50% during inspiration; therefore the estimated right atrial pressure is normal (~0-5 mmHg). Roberto Molina MD Left VentricleLeft ventricle size is normal. Increased wall thickness. There is concentric remodeling (RWT 0.4222). Normal wall motion. Normal systolic function with a visually estimated EF of 55 - 60%. Normal diastolic function.Right VentricleRight ventricle size is normal. Normal systolic function.Left AtriumLeft atrium size is normal. Inconclusive bubble study, unable to rule out PFO. Consider DEEPIKA if clinically indicated.Right AtriumRight atrium size is normal.IVC/SVCIVC diameter is less than or equal to 21 mm and decreases greater than 50% during inspiration; therefore the estimated right atrial pressure is normal (~0-5 mmHg).Mitral ValveMitral valve structure is normal. Trace transvalvular regurgitation. No stenosis.Tricuspid ValveTricuspid valve structure is normal. Insufficient tricuspid regurgitation jet to estimate RVSP.Trace transvalvular regurgitation.Aortic ValveAortic valve opens well. Trace transvalvular regurgitation. No evidence of aortic stenosis.Pulmonic ValveNot well visualized. Trace transvalvular regurgitation. No stenosis.Ascending AortaNormal sized annulus and sinus of Valsalva.PericardiumT he pericardium is normal. No pericardial effusion.Study DetailsStudy quality was adequate. A complete echocardiogram was performed using 2D, color flow Doppler and spectral Doppler. Saline contrast was performed. Patient exhibited sinus rhythm. [facility]LIPID PANEL (26935)(TOTAL CHOLESTEROL, TRIGLYCERIDES, HDL)2022-09-06 18:33:56 Test Item Value Reference Range Interpretation Comments CHOL (test code = 276 mg/dL 120-200 H 1378477478) HDL (test code = 37 mg/dL See_Comment L [Automated message] 7664214259) The system [employer] generated this result transmit aida reference range : >=50. The refer ence range was not u sed to interpret th is result as normal/abnormal . HDLC RATIO (test code = See_Comment H [Au tomated message] 4403655915) The system [employer] generated this result transmit aida reference range : <=4.5. The refe rence range was not u sed to interpret th is result as normal/abnormal . TRIG (test code = 95 mg/dL 30-170 0728238801) LDL CHOL (test code = 220 mg/dL See_Comment H [Auto mated message] 09540-4) The system [employer] generated this result transmit aida reference range : <=160. The refe rence range was not u sed to interpret th is result as normal/abnormal . VLDL (test code = 19 mg/dL 5-60 5907363053) Lab Interpretation (test Abnormal code = 79632-4) [facility] (NA, K, CL, CO2, GLUCOSE, BUN, CREATININE, CA)2022-09-06 10:18:26 Test Item Value Reference Range Interpretation Comments NA (test code = 140 mmol/L 135-145 0430989684) K (test code = 5.0 mmol/L 3.5-5.0 8893689482) CL (test code = 104 mmol/L 98-108 8840366177) CO2 TOTAL (test code = 20 mmol/L 23-31 L 4042682977) AGAP (test code = 2-16 8023016406) BUN (test code = 15 mg/dL 7-23 7503639710) GLUCOSE (test code = 156 mg/dL 70-110 H 6876808032) CREATININE (test code = 0.68 mg/dL 0.50-1.04 7790640227) CALCIUM (test code = 9.1 mg/dL 8.6-10.6 8984759392) eGFR (test code = mL/min/1.73m2 8159199731) SOMMER (test code = SOMMER) Association of [...] tests). Lab Interpretation Abnormal (test code = 99811-7) [facility] CampusTrsilvina [id number] 02:33:00 Test Item Value Reference Interpretation Comments Range TROPONIN I (test 0.002 ng/mL See_Comment [Automated code = 0040216761) message] The system which generated this result [...] biotin. Lab Interpretation Normal (test code = 24857-5) [facility] [id number] 02:33:00 Test Item Value Reference Interpretation Comments Range TROPONIN I (test 0.002 ng/mL See_Comment [Automated code = 5264410236) message] The system which generated this result [...] biotin. Lab Interpretation Normal (test code = 78390-2) [facility] Metabolic Panel (NA, K, CL, CO2, Glucose, BUN, Creatinine, CA)2022-09-06 02:21:22 Test Item Value Reference Range Interpretation Comments NA (test code = 138 mmol/L 135-145 2400412448) K (test code = 4.5 mmol/L 3.5-5.0 1433562947) CL (test code = 104 mmol/L 98-108 5392535833) CO2 TOTAL (test code 24 mmol/L 23-31 = 8597414058) AGAP (test code = 2-16 2316647548) BUN (test code = 15 mg/dL 7-23 5213141193) GLUCOSE (test code = 101 mg/dL 70-110 2124884383) CREATININE (test code 0.65 mg/dL 0.50-1.04 = 8884660357) CALCIUM (test code = 9.0 mg/dL 8.6-10.6 6759723742) eGFR (test code = mL/min/1.73m2 4618331690) SOMMER (test code = SOMMER) Association of [...] or urine or abnormalities in imaging tests). [facility] CampusProthrombin Time / [id number] 02:19:21 Test Item Value Reference Range Interpretation Comments PROTIME PATIENT (test See_Comment H [Auto mated message] code = 5964-2) The system [employer] generated this result transmitted ref erence range: 10.1 - 1 2.6 Seconds. The reference range was not used to int erpret this result as normal/abnormal . INR (test code = 6301-6) Nor mal INR <1.1; Warfarin Therap eutic range 2.0 to 3. 0 or 2.5 to 3.5, dep ending upon the indica tions. Lab Interpretation (test Abnormal code = 68855-6) [facility] CampusaPTT2022-12-13 02:19:21 Test Item Value Reference Range Interpretation Comments APTT Patient (test code See_Comment H [Au tomated message] = 3173-2) The system [employer] generated this result transmitted ref erence range: 26 - 36 Seconds. The reference range was not used to int erpret this result as normal/abnormal . Lab Interpretation (test Abnormal code = 44409-2) [facility] CampusProthrombin Time / [id number] 02:19:21 Test Item Value Reference Range Interpretation Comments PROTIME PATIENT (test See_Comment H [Auto mated message] code = 5964-2) The system [employer] generated this result transmitted ref erence range: 10.1 - 1 2.6 Seconds. The reference range was not used to int erpret this result as normal/abnormal . INR (test code = 6301-6) Nor mal INR <1.1; Warfarin Therap eutic range 2.0 to 3. 0 or 2.5 to 3.5, dep ending upon the indica tions. Lab Interpretation (test Abnormal code = 66441-0) [facility] CampusaPTT2022-12-13 02:19:21 Test Item Value Reference Range Interpretation Comments APTT Patient (test code See_Comment H [Au tomated message] = 3173-2) The system [employer] generated this result transmitted ref erence range: 26 - 36 Seconds. The reference range was not used to int erpret this result as normal/abnormal . Lab Interpretation (test Abnormal code = 27489-8) [facility] CampusProfile / [id number] 02:11:17 Test Item Value Reference Range Interpretation Comments WBC (test code = See_Comment [Automated message] The 6690-2) system which ge nerated this result tra nsmitted reference range : 4.30 - 11.10 10*3/?L. The reference range was not used to interpr et this result as normal/abnormal . RBC (test code = See_Comment [Automated message] The 789-8) system which ge nerated this result tra nsmitted reference range : 3.93 - 5.25 10*6/?L. T he reference range was not used to interpr et this result as normal/abnormal . HGB (test code = 13.9 g/dL 11.6-15.0 718-7) HCT (test code = 42.0 % 35.7-45.2 4544-3) MCH (test code = 28.3 pg 25.9-32.8 785-6) MCV (test code = 85.4 fL 80.6-95.5 787-2) MCHC (test code = 33.1 g/dL 31.6-35.1 786-4) PLT (test code = See_Comment [Automated message] The 777-3) system which nerated this result tra nsmitted reference range : 166 - 358 10*3/?L. Th e reference range was not used to interpr et this result as normal/abnormal . MPV (test code = 9.7 fL 9.5-12.9 27734-1) RDW-CV (test code = 12.6 % 12.0-15.5 788-0) RDW-SD (test code = 39.0 fL 39.0-49.9 78651-7) NRBC x10^3 (test See_Comment [Automated message] The code = 5517374875) system [facility] generated this result tra nsmitted reference range : 10*3/?L. The reference r soumya was not used to int erpret this result as normal/abnormal . NRBC/100 WBC (test See_Comment [Automat ed message] The code = 3590460518) system [facility] generated this result tra nsmitted reference range : 0.0 - 10.0 /100 WBCs. The reference range was not used to interpr et this result as normal/abnormal . IPF % (test code = 4541357217) [facility] BranchProfile / [id number] 02:11:17 Test Item Value Reference Range Interpretation Comments WBC (test code = See_Comment [Automated message] The 6690-2) system which nerated this result tra nsmitted reference range : 4.30 - 11.10 10*3/?L. The reference range was not used to interpr et this result as normal/abnormal . RBC (test code = See_Comment [Automated message] The 789-8) system which nerated this result tra nsmitted reference range : 3.93 - 5.25 10*6/?L. T he reference range was not used to interpr et this result as normal/abnormal . HGB (test code = 13.9 g/dL 11.6-15.0 718-7) HCT (test code = 42.0 % 35.7-45.2 4544-3) MCH (test code = 28.3 pg 25.9-32.8 785-6) MCV (test code = 85.4 fL 80.6-95.5 787-2) MCHC (test code = 33.1 g/dL 31.6-35.1 786-4) PLT (test code = See_Comment [Automated message] The 777-3) system which nerated this result tra nsmitted reference range : 166 - 358 10*3/?L. Th e reference range was not used to interpr et this result as normal/abnormal . MPV (test code = 9.7 fL 9.5-12.9 69270-7) RDW-CV (test code = 12.6 % 12.0-15.5 788-0) RDW-SD (test code = 39.0 fL 39.0-49.9 85275-9) NRBC x10^3 (test See_Comment [Automated message] The code = 7992485850) system [facility] generated this result tra nsmitted reference range : 10*3/?L. The reference r soumya was not used to int erpret this result as normal/abnormal . NRBC/100 WBC (test See_Comment [Automat ed message] The code = 5182425534) system [facility] generated this result tra nsmitted reference range : 0.0 - 10.0 /100 WBCs. The reference range was not used to interpr et this result as normal/abnormal . IPF % (test code = 0065270183) [facility] GLUCOSE (AUTOMATED)2022-09-06 02:07:44 Test Item Value Reference Range Interpretation Comments POCT GLU (test code = 5698045733) 103 mg/dL 70-110 Lab Interpretation (test code = Normal 31032-3) [facility] GLUCOSE (AUTOMATED)2022-09-06 02:07:44 Test Item Value Reference Range Interpretation Comments POCT GLU (test code = 6151486013) 103 mg/dL 70-110 Lab Interpretation (test code = Normal 68587-9) [facility]KEPPRA (LEV[facility]ACETAM)2022-09-05 19:28:15 Test Item Value Reference Range Interpretation Comments KEPPRA (test code = 92 ug/mL 12-46 H 9549507967) SOMMER (test code = SOMMER) Therapeutic range: 12-46 ?g/mL ? ?Toxic: Not well established.Test developed and characteristics determined by [facility] Laboratory Services. Lab Interpretation Abnormal (test code = 92320-5) [facility] 19:28:15 Test Item Value Reference Range Interpretation Comments KEPPRA (test code = 92 ug/mL 12-46 H 8974923235) SOMMER (test code = SOMMER) Therapeutic range: 12-46 ?g/mL ? ?Toxic: Not well established.Test developed and characteristics determined by [facility] Laboratory Services. Lab Interpretation Abnormal (test code = 90754-3) [facility] GLUCOSE (AUTOMATED)2022-09-05 07:27:38 Test Item Value Reference Range Interpretation Comments POCT GLU (test code = 7985917470) 114 mg/dL 70-110 H Lab Interpretation (test code = Abnormal 71541-8) [facility]2022-12-12 03:34:42 Test Item Value Reference Range Interpretation Comments MAGNESIUM (test code = 0123032323) 2.3 mg/dL 1.7-2.4 Lab Interpretation (test code = Normal 62460-0) [facility]2022-12-12 03:34:42 Test Item Value Reference Range Interpretation Comments MAGNESIUM (test code = 0981137030) 2.3 mg/dL 1.7-2.4 Lab Interpretation (test code = Normal 45765-2) [facility]. METABOLIC PANEL (33864)2022-09-05 03:34:22 Test Item Value Reference Range Interpretation Comments NA (test code = 139 mmol/L 135-145 5537022310) K (test code = 4.2 mmol/L 3.5-5.0 2408261304) CL (test code = 104 mmol/L 98-108 8939002299) CO2 TOTAL (test code = 29 mmol/L 23-31 0381220466) AGAP (test code = 2-16 2776568255) BUN (test code = 11 mg/dL 7-23 9115888726) GLUCOSE (test code = 117 mg/dL 70-110 H 6113673472) CREATININE (test code = 0.62 mg/dL 0.50-1.04 4588747036) TOTAL BILI (test code = 0.4 mg/dL 0.1-1.8 0249370602) CALCIUM (test code = 9.5 mg/dL 8.6-10.6 5614603468) T PROTEIN (test code = 7.2 g/dL 6.3-8.2 3049654890) ALBUMIN (test code = 4.3 g/dL 3.5-5.0 5960536286) ALK PHOS (test code = 106 U/L 34-122 9316001440) ALTv (test code = 19 U/L 5-35 1742-6) AST(SGOT) (test code = 24 U/L 13-40 4608888410) eGFR (test code = mL/min/1.73m2 7667221739) SOMMER (test code = SOMMER) Association of [...] tests). Lab Interpretation Abnormal (test code = 54889-7) [facility]. METABOLIC PANEL (92875)2022-09-05 03:34:22 Test Item Value Reference Range Interpretation Comments NA (test code = 139 mmol/L 135-145 4337918856) K (test code = 4.2 mmol/L 3.5-5.0 9789638913) CL (test code = 104 mmol/L 98-108 3796920330) CO2 TOTAL (test code = 29 mmol/L 23-31 2739790392) AGAP (test code = 2-16 5234905820) BUN (test code = 11 mg/dL 7-23 6890471148) GLUCOSE (test code = 117 mg/dL 70-110 H 5569456552) CREATININE (test code = 0.62 mg/dL 0.50-1.04 1316954919) TOTAL BILI (test code = 0.4 mg/dL 0.1-1.3 6212727283) CALCIUM (test code = 9.5 mg/dL 8.6-10.6 7031174624) T PROTEIN (test code = 7.2 g/dL 6.3-8.2 0816564270) ALBUMIN (test code = 4.3 g/dL 3.5-5.0 1725871077) ALK PHOS (test code = 106 U/L 34-122 2914012425) ALTv (test code = 19 U/L 5-35 1742-6) AST(SGOT) (test code = 24 U/L 13-40 4025818973) eGFR (test code = mL/min/1.73m2 3813568625) SOMMER (test code = SOMMER) Association of [...] tests). Lab Interpretation Abnormal (test code = 32441-1) [facility] WITH [id number] 03:25:36 Test Item Value Reference Range Interpretation Comments WBC (test code = See_Comment [Automated message] 6690-2) The system [employer] generated this result transmitted ref erence range: 4.30 - 1 1.10 10*3/?L. The re ference range was not u sed to interpret this result as normal/abnor mal. RBC (test code = See_Comment [Automated message] 789-8) The system [employer] generated this result transmitted ref erence range: 3.93 - 5 .25 10*6/?L. The re ference range was not u sed to interpret this result as normal/abnor mal. HGB (test code = 14.0 g/dL 11.6-15.0 718-7) HCT (test code = 42.1 % 35.7-45.2 4544-3) MCV (test code = 86.4 fL 80.6-95.5 787-2) MCH (test code = 28.7 pg 25.9-32.8 785-6) MCHC (test code = 33.3 g/dL 31.6-35.1 786-4) RDW-SD (test code 39.8 fL 39.0-49.9 = 27913-2) RDW-CV (test code 12.6 % 12.0-15.5 = 788-0) PLT (test code = See_Comment [Automated message] 777-3) The system [employer] generated this result transmitted ref erence range: 166 - 35 8 10*3/?L. The re ference range was not u sed to interpret this result as normal/abnor mal. MPV (test code = 10.2 fL 9.5-12.9 95425-7) NRBC/100 WBC (test See_Comment [Automat ed message] code = 8391984040) The syste m which generated this result transmitted ref erence range: 0.0 - 10 .0 /100 WBCs. The refer ence range was not u sed to interpret this result as normal/abnor mal. NRBC x10^3 (test See_Comment [Automated message] code = 2059564944) The syste m which generated this result transmitted ref erence range: 10*3/?L. The reference range was not used to interpr et this result as normal/abnormal . GRAN MAT (NEUT) % 60.0 % (test code = 770-8) IMM GRAN % (test 0.40 % code = 6970179900) LYMPH % (test code 30.1 % = 736-9) MONO % (test code 7.4 % = 5905-5) EOS % (test code = 1.7 % 713-8) BASO % (test code 0.4 % = 706-2) GRAN MAT 4.31 10*3/uL 1.88-7.09 x10^3(ANC) (test code = 1580974310) IMM GRAN x10^3 0.03 10*3/uL 0.00-0.06 (test code = 7807291757) LYMPH x10^3 (test 2.16 10*3/uL 1.32-3.29 code = 731-0) MONO x10^3 (test 0.53 10*3/uL 0.33-0.92 code = 742-7) EOS x10^3 (test 0.12 10*3/uL 0.03-0.39 code = 711-2) BASO x10^3 (test 0.03 10*3/uL 0.01-0.07 code = 704-7) [facility] WITH [id number] 03:25:36 Test Item Value Reference Range Interpretation Comments WBC (test code = See_Comment [Automated message] 1990-2) The system [employer] generated this result transmitted ref erence range: 4.30 - 1 1.10 10*3/?L. The re ference range was not u sed to interpret this result as normal/abnor mal. RBC (test code = See_Comment [Automated message] 789-8) The system [employer] generated this result transmitted ref erence range: 3.93 - 5 .25 10*6/?L. The re ference range was not u sed to interpret this result as normal/abnor mal. HGB (test code = 14.0 g/dL 11.6-15.0 718-7) HCT (test code = 42.1 % 35.7-45.2 4544-3) MCV (test code = 86.4 fL 80.6-95.5 787-2) MCH (test code = 28.7 pg 25.9-32.8 785-6) MCHC (test code = 33.3 g/dL 31.6-35.1 786-4) RDW-SD (test code 39.8 fL 39.0-49.9 = 28397-7) RDW-CV (test code 12.6 % 12.0-15.5 = 788-0) PLT (test code = See_Comment [Automated message] 777-3) The system [employer] generated this result transmitted ref erence range: 166 - 35 8 10*3/?L. The re ference range was not u sed to interpret this result as normal/abnor mal. MPV (test code = 10.2 fL 9.5-12.9 71766-9) NRBC/100 WBC (test See_Comment [Automat ed message] code = 8115951188) The syste m which generated this result transmitted ref erence range: 0.0 - 10 .0 /100 WBCs. The refer ence range was not u sed to interpret this result as normal/abnor mal. NRBC x10^3 (test See_Comment [Automated message] code = 7887245916) The syste m which generated this result transmitted ref erence range: 10*3/?L. The reference range was not used to interpr et this result as normal/abnormal . GRAN MAT (NEUT) % 60.0 % (test code = 770-8) IMM GRAN % (test 0.40 % code = 4942099327) LYMPH % (test code 30.1 % = 736-9) MONO % (test code 7.4 % = 5905-5) EOS % (test code = 1.7 % 713-8) BASO % (test code 0.4 % = 706-2) GRAN MAT 4.31 10*3/uL 1.88-7.09 x10^3(ANC) (test code = 4676613485) IMM GRAN x10^3 0.03 10*3/uL 0.00-0.06 (test code = 9210617899) LYMPH x10^3 (test 2.16 10*3/uL 1.32-3.29 code = 731-0) MONO x10^3 (test 0.53 10*3/uL 0.33-0.92 code = 742-7) EOS x10^3 (test 0.12 10*3/uL 0.03-0.39 code = 711-2) BASO x10^3 (test 0.03 10*3/uL 0.01-0.07 code = 704-7) [facility]. METABOLIC PANEL (50338)2022-08-14 20:40:10 Test Item Value Reference Range Interpretation Comments NA (test code = 138 mmol/L 135-145 3712605616) K (test code = 4.4 mmol/L 3.5-5.0 6839454901) CL (test code = 105 mmol/L 98-108 7782641419) CO2 TOTAL (test code 24 mmol/L 23-31 = 7384345450) AGAP (test code = 2-16 6716498559) BUN (test code = 12 mg/dL 7-23 5346725603) GLUCOSE (test code = 95 mg/dL 70-110 6685311857) CREATININE (test code 0.66 mg/dL 0.50-1.04 = 7356159827) TOTAL BILI (test code 0.6 mg/dL 0.1-1.1 = 6585355400) CALCIUM (test code = 9.5 mg/dL 8.6-10.6 5385126088) T PROTEIN (test code 7.5 g/dL 6.3-8.2 = 5778511232) ALBUMIN (test code = 4.5 g/dL 3.5-5.0 5972408834) ALK PHOS (test code = 117 U/L 34-122 4933318512) ALTv (test code = 21 U/L 5-35 1742-6) AST(SGOT) (test code 26 U/L 13-40 = 7280767912) eGFR (test code = mL/min/1.73m2 4839192558) SOMMER (test code = SOMMER) Association of [...] or urine or abnormalities in imaging tests). [facility]2022-11-20 20:40:10 Test Item Value Reference Range Interpretation Comments LIPASE (test code = 7862849181) 63 U/L 0-220 Lab Interpretation (test code = Normal 43520-5) [facility]2022-11-20 20:40:10 Test Item Value Reference Range Interpretation Comments LIPASE (test code = 4154098278) 63 U/L 0-220 Lab Interpretation (test code = Normal 28046-4) [facility] [id number] 05:52:34 Test Item Value Reference Interpretation Comments Range TROPONIN I (test See_Comment [Automated code = 7149562672) message] The system which generated this result [...] biotin. Lab Interpretation Normal (test code = 58365-7) [facility] [id number] 03:23:34 Test Item Value Reference Interpretation Comments Range TROPONIN I (test See_Comment [Automated code = 2107739088) message] The system which generated this result [...] biotin. Lab Interpretation Normal (test code = 16506-1) [id number] 03:20:37 Test Item Value Reference Range Interpretation Comments NT-proBNP (test code 46 pg/mL See_Comment [Autom ated = 1287668367) message] The system which generated this result transmitted reference range : <=125. The reference range was not used to interpret this result as normal/abnormal . SOMMER (test code = SOMMER) Biotin has been reported to cause a negative bias, interpret results relative to patient's use of biotin. Lab Interpretation Normal (test code = 85215-3) [id number]-[id number] 03:20:37 Test Item Value Reference Range Interpretation Comments NT-proBNP (test code 46 pg/mL See_Comment [Autom ated = 0724874110) message] The system which generated this result transmitted reference range : <=125. The reference range was not used to interpret this result as normal/abnormal . SOMMER (test code = SOMMER) Biotin has been reported to cause a negative bias, interpret results relative to patient's use of biotin. Lab Interpretation Normal (test code = 03096-4) [facility] 03:12:18 Test Item Value Reference Range Interpretation Comments MAGNESIUM (test code = 5461071584) 2.2 mg/dL 1.7-2.4 Lab Interpretation (test code = Normal 32371-8) [facility]OLIC [facility] (82870)2022-06-21 03:12:12 Test Item Value Reference Range Interpretation Comments NA (test code = 140 mmol/L 135-145 5057256063) K (test code = 4.3 mmol/L 3.5-5 5615575935) CL (test code = 106 mmol/L 98-108 4388478501) CO2 TOTAL (test code 25 mmol/L 23-31 = 0132342459) AGAP (test code = 2-16 2818139777) BUN (test code = 11 mg/dL 7-23 1726330479) GLUCOSE (test code = 96 mg/dL 70-110 6148345880) CREATININE (test code 0.64 mg/dL 0.5-1.04 = 6526015257) TOTAL BILI (test code 0.4 mg/dL 0.1-1.1 = 5000539442) CALCIUM (test code = 9.4 mg/dL 8.6-10.6 1114710015) T PROTEIN (test code 7.2 g/dL 6.3-8.2 = 6960728021) ALBUMIN (test code = 4.4 g/dL 3.5-5 9269057363) ALK PHOS (test code = 98 U/L 34-122 0256254060) ALTv (test code = 23 U/L 5-35 1742-6) AST(SGOT) (test code 26 U/L 13-40 = 0527236617) eGFR (test code = mL/min/1.73m2 5455255194) SOMMER (test code = SOMMER) Association of [...] or urine or abnormalities in imaging tests). [facility] WITH [id number] 03:02:31 Test Item Value Reference Range Interpretation Comments WBC (test code = See_Comment [Automated message] 90-2) The system [employer] generated this result transmitted ref erence range: 4.30 - 1 1.10 10*3/?L. The re ference range was not u sed to interpret this result as normal/abnor mal. RBC (test code = See_Comment [Automated message] 079-8) The system [employer] generated this result transmitted ref erence range: [...] RDW-SD (test code 40.2 fL 39-49.9 = 70872-6) RDW-CV (test code 13.0 % 12-15.5 = 788-0) PLT (test code = See_Comment [Automated message] 777-3) The system [employer] generated this result transmitted ref erence range: 166 - 35 8 10*3/?L. The re ference range was not u sed to interpret this result as normal/abnor mal. MPV (test code = 10.3 fL 9.5-12.9 07287-3) NRBC/100 WBC (test See_Comment [Automat ed message] code = 1010857846) The syste m which generated this result transmitted ref erence range: 0.0 - 10 .0 /100 WBCs. The refer ence range was not u sed to interpret this result as normal/abnor mal. NRBC x10^3 (test See_Comment [Automated message] code = 4937187781) The syste m which generated this result transmitted ref erence range: 10*3/?L. The reference range was not used to interpr et this result as normal/abnormal . GRAN MAT (NEUT) % 57.2 % (test code = 770-8) IMM GRAN % (test 0.30 % code = 7240495784) LYMPH % (test code 31.9 % = 736-9) MONO % (test code 9.1 % = 5905-5) EOS % (test code = 1.2 % 713-8) BASO % (test code 0.3 % = 706-2) GRAN MAT 3.40 10*3/uL 1.88-7.09 x10^3(ANC) (test code = 2260987791) IMM GRAN x10^3 0-0.06 (test code = 0655150329) LYMPH x10^3 (test 1.90 10*3/uL 1.32-3.29 code = 731-0) MONO x10^3 (test 0.54 10*3/uL 0.33-0.92 code = 742-7) EOS x10^3 (test 0.07 10*3/uL 0.03-0.39 code = 711-2) BASO x10^3 (test 0.01-0.07 code = 704-7) [facility] 12 [id number] 14:56:41 Test Item Value Reference Range Interpretation Comments Ventricular rate (test code = 253) Atrial rate (test code = 255) MA interval (test code = 266) QRSD interval [...] of 17-MAR-2021 15:19,-No significant change [facility] found[facility] 12:41:23 Test Item Value Reference Range Interpretation Comments Urine culture isolate Mixed alok <=10-3 (test code = 84382-1) col/cc [facility], (w Contrast, Strain and 3D if needed)2021-03-18 23:04:52 Test Item Value Reference Range Interpretation Comments Ao Root Diameter (test code = 2.73 cm 5429722931) AoV Area, Vmax (test code = 2.24 cm2 3887167060) AoV Area, VTI (test code = 2.25 cm2 0468514117) AoV Mean PG (test code = mmHg 2688981432) AoV Peak PG (test code = mmHg 6379224159) AoV Vmax (test code = 9167229971) 1.46 m/s AoV VTI (test code = 9861964552) 0.28 m IVS,d (test code = 8249032185) 0.72 cm IVS/LVPW,2D (test code = 0059549048) Left Atrium Dimension Anterior 2.68 cm (test code = 6754595337) LV,d (test code = 7588039476) 3.69 cm LV EF,2D (test code = 7000753473) 79.68 % LV,s (test code = 4299390857) 2.17 cm LVOT area (test code = 0644320584) 2.75 cm2 LVOT Diam,S (test code = 1.87 cm 3418307333) LVOT Vmax (test code = 7017187598) 1.18 m/s LVOT VTI (test code = 6729828172) 0.23 m LVPWD,d (test code = 6629600127) 0.65 cm PV Pk Grad (test code = 6494509776) mmHg PV VMAX (test code = 3242548100) 0.84 m/s RVOT Vmax (test code = 1563373111) 0.85 m/s RVSP (TR) (test code = 0188508233) mmHg TR Vpeak (test code = 4881034421) 2.86 mm/s MV E A ratio (test code = 5468582302) RA pressure (test code = mmHg 5496733834) TR pk grad (test code = 6836673007) mmHg MR Vmax (test code = 2853902331) 5.49 m/s E wave decelartion time (test code msec = 2049296238) MV Peak A Eris (test code = 0.76 m/s 5908912823) MV valve area p 1/2 method (test 3.26 cm2 code = 7786871683) MV Peak E Eris (test code = 0.92 m/s 0984563377) MV stenosis pressure 1/2 time (test 67.54 ms code = 4156578642) LVOT stroke volume (test code = 0.63 cm3 9740832124) AV LVOT peak gradient (test code = mmHg 1535680167) RVSP (test code = 0538399141) mmHg Ao Root Diameter (test code = 2.73 cm 6112517701) MV mean gradient (test code = mmHg 6995536393) LV SYS VOL (test code = 1793789543) 15.61 ml LV MARTINS VOL (test code = 57.63 ml 4222608003) LA area s A4C (test code = 11.16 cm2 3645645940) LV SV Teich 2D (test code = 42.02 ml 0295139725) LV Vol s Teich PSAX (test code = 15.61 ml 1572989142) MR peak grad (test code = mmHg 7550977941) MV Vmax (test code = 4922793744) 1.21 m MV VTI Tips (test code = 0.24 m 9038196293) RVOT pk grad (test code = mmHg 1726494906) AoV Vmn (test code = 7132158991) LV FS Teich 2D (test code = 4805704544) MV AE ratio (test code = 5285926672) LV FS Cube 2D (test code = 3154376552) LVOT Vmn (test code = 5642488642) Aov area Vmn (test code = 2.13 cm2 6165070651) LVOT mean grad (test code = mmHg 9934354397) MAX Pred HR (test code = 8220252573) 85 of MPHR (test code = 8436808413) Calc MPHR (test code = 2086790537) bpm LV SV Cube 2D (test code = 39.93 ml 9521784890) LV vol d cube 2D (test code = 50.11 ml 7325096950) LV vol s cube 2D (test code = 10.18 ml 6216435899) MV Decel slope (test code = 3.97 m/s2 3022692239) Pred Exer Dur R1 (test code = 7180729531) Pred METS R1 (test code = 2849741460) LA Vol MOD A4C (test code = 24.20 ml 4356675253) Velocity Ratio (V1/V2) (test code = 0.81 m/s 4689) EF (test code = 8787717189) 72.91 % E/A ratio (test code = 6765153372) LVOT VTI (CM) (test code = 23.00 cm 1747923567) SOMMER (test code = SOMMER) [facility] [id number] 17:32:37 Test Item Value Reference Range Interpretation Comments POC glucose (test code = 64372-6) 207 mg/dL 65-99 H Lab Interpretation (test code = Abnormal 93987-4) [facility] duplex venous lower mboabnocp3605-34-71 01:17:37 EXAMINATION: US DUPLEX VENOUS LOWER EXTREMITY [...] is no evidence of deep venous thrombosis. [facility]-[id number] Interface, Radiology Results - 03/17/2021 8:20 PM [...] There is no evidence of deep venous thrombosis.[facility]-[id number] HospitalXR Chest 1 Vw Jqluyqlr2096-79-78 21:32:52EXAMINATION: XR CHEST 1 VW PORTABLE CLINICAL HISTORY: 40 years Female SOB COMPARISON: None. IMPRESSION: Lines, tubes, and devices: Right-sided transvenous cardiac pacemaker. Heart and mediastinum: Cardiomediastinal silhouette is normal. Lungs and pleura: There is no focal airspace disease, pleural effusion or pneumothorax. Bones/soft tissues: No acute osseous abnormality. [facility]-[id number] Dictated andapproved by anesthesiology resident/fellow: Cristhian Calixto M.D. I, Jan Scott MD, personally reviewed the images and resident's/fellow's findings and agree with the final report.[facility], Radiology Results - 03/17/2021 4:35 PM CDT EXAMINATION: XR CHEST 1 VW PORTABLECLINICAL HISTORY: 40 years Female SOBCOMPARISON: None.IMPRESSION:Lines, tubes, and devices: Right-sided transvenous cardiac pacemaker.Heart and mediastinum: Cardio mediastinal silhouette is normal.Lungs and pleura: There is no focal airspace disease, pleural effusion or pneumothorax.Bones/soft tissues: No acute osseous abnormality.[facility]-[id number] and approved by anesthesiology resident/fellow: Aleksandra Sanchez, Jan Scott MD, personally reviewed the images and resident's/fellow's findings and agree with the final report.[facility] ARRYTHMIA IMPLANT REPORT - [id number] 20:45:31Ordered by an unspecified provider.[facility] Preliminary Interpretation - Not an Whusg1333-50-10 20:36:46 Test Item Value Reference Range Interpretation Comments SOMMER (test code = SOMMER) Lab Interpretation (test code = Abnormal 66532-0) [facility] Metabolic Pfwrf8575-98-36 07:01:00 Test Item Value Reference Range Interpretation Comments Sodium (test code = 137 meq/L 642-868 6961-2) Potassium (test code = 4.3 meq/L 3.5-5.1 2823-3) Chloride (test code = 104 meq/L 98-107 2075-0) CO2 (test code = 24 meq/L 22-29 2028-9) BUN (test code = 15 mg/dL 7-21 3094-0) Creatinine (test code 0.81 mg/dL 0.57-1.25 = 2160-0) Glucose (test code = 108 mg/dL 70-105 H 2345-7) Calcium (test code = 9.2 mg/dL 8.4-10.2 48611-1) EGFR (test code = 79 mL/min/1.73 sq m [place] [address]-4) NOT ACCURATE CREATININE CLEARANCE IN PREDICTING GLOMERULAR FILTRATION RATE . ESTIMATED GFR I S NOT APPLICABLE FOR DIALYSIS PATIENTS. SOMMER (test code = SOMMER) Cheerleading Coach ID - PIAYA L Lab Interpretation Abnormal (test code = 08460-0) [facility] CampusMagnesium2021-05-21 07:01:00 Test Item Value Reference Range Interpretation Comments Magnesium (test code = 2.5 mg/dL 1.6-2.6 31713-8) SOMMER (test code = SOMMER) Cheerleading Coach ID - PIAYA L Lab Interpretation (test Normal code = 86605-4) [facility] CampusPhosphorus2021-05-21 07:01:00 Test Item Value Reference Range Interpretation Comments Phosphorus (test code = 4.3 mg/dL 2.3-4.7 2777-1) SOMMER (test code = SOMMER) Cheerleading Coach ID - PIAYA L Lab Interpretation (test Normal code = 17625-0) [facility] CampusBASIC METABOLIC [id number] 07:01:00 Test Item Value Reference Range Interpretation [...] S NOT APPLICABLE FOR DIALYSIS PATIEN TS. Cheerleading Coach ID - PIMERRY [id number] 07:01:00 Test Item Value Reference Range Interpretation Comments MAGNESIUM (BEAKER) (test code = 2.5 mg/dL 1.6-2.6 627) Cheerleading Coach ID - PIMERRY PMAQVYGGGVX7824-10-61 07:01:00 Test Item Value Reference Range Interpretation Comments PHOSPHORUS (BEAKER) (test code = 4.3 mg/dL 2.3-4.7 604) Cheerleading Coach ID - SHAMIKAMERRY LCBC with platelet count + automated [id number] 05:37:00 Test Item Value Reference Range Interpretation Comments WBC (test code = 6690-2) 6.8 See_Comment [A utomated message] The system [employer] generated this result transmitted ref erence range: 3.5 - 10 .5 K/L. The refe rence range was not u sed to interpret this result as normal/abnor mal. RBC (test code = 789-8) 5.14 See_Comment [Au tomated message] The system [employer] generated this result transmitted ref erence range: 3.93 - 5 .22 M/L. The refe rence range was not u sed to interpret this result as normal/abnor mal. MCHC (test code = 786-4) 31.6 See_Comment L [A utomated message] The system [employer] generated this result transmitted ref erence range: [...] See_Comment [Aut omated message] 777-3) The system [employer] generated this result transmitted ref erence range: 150 - 45 0 K/CU MM. The referen ce range was not u sed to interpret this result as normal/abnor mal. MPV (test code = 10.0 fL 9.4-12.3 34023-1) nRBC (test code = 413) 0 See_Comment [Aut omated message] The system [employer] generated this result transmitted ref erence range: [...] See_Comment [Aut omated message] 670) The system [employer] generated this result transmitted ref erence range: 1.56 - 6 .13 K/L. The refe rence range was not u sed to interpret this result as normal/abnor mal. # Lymphs (test code = 2.10 See_Comment [Auto mated message] 414) The system [employer] generated this result transmitted ref erence range: 1.18 - 3 .74 K/L. The refe rence range was not u sed to interpret this result as normal/abnor mal. # Monos (test code = 0.48 See_Comment H [Autom ated message] 415) The system [employer] generated this result transmitted ref erence range: 0.24 - 0 .36 K/L. The refe rence range was not u sed to interpret this result as normal/abnor mal. # Eos (test code = 416) 0.26 See_Comment [Au tomated message] The system [employer] generated this result transmitted ref erence range: 0.04 - 0 .36 K/L. The refe rence range was not u sed to interpret this result as normal/abnor mal. # Baso (test code = 417) 0.04 See_Comment [A utomated message] The system [employer] generated this result transmitted ref erence range: 0.01 - 0 .08 K/L. The refe rence range was not u sed to interpret this result as normal/abnor mal. Immature 1 % 0-1 Granulocytes-Relative (test code = 2801) Lab Interpretation (test Abnormal code = 83115-3) [facility] W/PLT COUNT & AUTO [id number] 05:37:00 Test Item Value Reference Range Interpretation [...] code = 2801) MR, MRA, BRAIN, WITHOUT [id number] 16:54:00Reason for exam:->Ischemic Stroke [facility] : 1980 Sex: FFINAL REPORT MR, BRAIN, WITHOUT CONTRAST, MR, MRA, BRAIN, WITHOUT CONTRAST, MR, MRA, NECK, WITHOUT IV CONTRAST INDICATION: Stroke, follow upIschemic Stroke Evaluation TECHNIQUE: Multiplanar, multisequence MR imaging of the brain without intravenous contrast.MRA of the head utilizing 3-D chek-bx-ewgssr technique, with 3-D reconstructions.MRA of the neck utilizing 2-D and 3-D kgix-ni-dporbj technique, with 3-D reconstructions. COMPARISON: MRI and [...] 02/11/2021 16:54:16 MR, MRA, NECK, WITHOUT IV [id number] 16:54:00Reason for exam:->Ischemic Stroke Evaluation [facility] 1980 Sex: FFINAL REPORT MR, BRAIN, WITHOUT CONTRAST, MR, MRA, BRAIN, WITHOUT CONTRAST, MR, MRA, NECK, WITHOUT IV CONTRAST INDICATION: Stroke, follow upIschemic Stroke Evaluation TECHNIQUE: Multiplanar, multisequence MR imaging of the brain without intravenous contrast.MRA of the head utilizing 3-D cpqt-wx-xkpsbt technique, with 3-D reconstructions.MRA of the neck utilizing 2-D and 3-D thsq-ql-gnqxoi technique, with 3-D reconstructions. COMPARISON: MRI and [...] within the head and neck. Signed: Misha Amadoreport Verified Date/Time: 02/11/2021 16:54:16 MR, BRAIN, WITHOUT [id number] 16:54:00Reason for exam:->Ischemic Stroke [facility] 1980 Sex: FFINAL REPORT MR, BRAIN, WITHOUT CONTRAST, MR, MRA, BRAIN, WITHOUT CONTRAST, MR,MRA, NECK, WITHOUT IV CONTRAST INDICATION: Stroke, follow upIschemic Stroke Evaluation TECHNIQUE: Multiplanar, multisequence MR imaging of the brain without intravenous contrast.MRA of the head utilizing 3-D bdiv-iv-iiyzba technique, with 3-D reconstructions.MRA of the neck utilizing 2-D and 3-D ijkn-vl-vcywlo technique, with 3-D reconstructions. COMPARISON: MRI and MRA 08/21/2018 FINDINGS: MRI Brain:Intracranial: Exam is degraded by motion. No intracranial hemorrhage. No restricted diffusion to suggest acute infarct. No mass effect. No hydrocephalus. Sinuses: Mild mucosal thickening in the right ma xillary sinus. Mastoids are clear. Orbits: Globes are intact. Calvarium \\T\\ scalp: Unremarkable. MRAHead:There is no evidence of intracranial aneurysm, focal [...] Date/Time: 02/11/2021 16:54:16 MR brain without IV [id number] 16:54:00Interface, External Ris In - 02/11/2021 4:56 PM CDTFINAL REPORT MR, BRAIN, WITHOUT CONTRAST, MR, MRA, BRAIN, WITHOUT CONTRAST, MR, MRA, NECK, WITHOUT IV CONTRAST INDICATION: Stroke, follow upIschemic Stroke Evaluation TECHNIQUE: Multiplanar, multisequence MR imaging of the brain without intravenous contrast.MRA of the head utilizing 3-D qgjj-cd-anlkgc technique, with 3-D reconstructions.MRA of the neck utilizing 2-D and 3-D rcut-bp-fgnigv technique, with 3-D reconstructions. COMPARISON: MRI and [...] within the head and neck. Signed: Misha Amadorort Verified Date/Time: 02/11/2021 16:54:16 [facility] [id number] 16:54:00Interface, External Ris In - 02/11/2021 4:56 PM CDTFINAL REPORT MR, BRAIN, WITHOUT CONTRAST, MR, MRA, BRAIN, WITHOUT CONTRAST, MR, MRA, NECK, WITHOUT IV CONTRAST INDICATION: Stroke, follow upIschemic Stroke Evaluation TECHNIQUE: Multiplanar, multisequence MR imaging of the brain without intravenous contrast.MRA of the head utilizing 3-D twxy-vu-szzisc technique, with 3-D reconstructions.MRA of the neck utilizing 2-D and 3-D pvbh-kf-wszynv technique, with 3-D reconstructions. COMPARISON: MRI and [...] within the head and neck. Signed: Misha Amadorort Verified Date/Time: 02/11/2021 16:54:16 [facility] without IV [id number] 16:54:00Interface, External Ris In - 02/11/2021 4:56 PM CDTFINAL REPORT MR, BRAIN, WITHOUT CONTRAST, MR, MRA, BRAIN, WITHOUT CONTRAST, MR, MRA, NECK, WITHOUT IV CONTRAST INDICATION: Stroke, follow upIschemic Stroke Evaluation TECHNIQUE: Multiplanar, multisequence MR imaging of the brain without intravenous contrast.MRA of the head utilizing 3-D kfgj-ph-fudneq technique, with 3-D reconstructions.MRA of the neck utilizing 2-D and 3-D yvkq-hw-rjfayl technique, with 3-D reconstructions. COMPARISON: MRI and [...] within the head and neck. Signed: [facility] Verified Date/Time: 02/11/2021 16:54:16 [facility] 14:02:00 Test Item Value Reference Range Interpretation Comments RPR (test code = 01135-7) Nonreactive Nonreactive Lab Interpretation (test code = Normal 31161-3) [facility]RPR[facility] 14:02:00 Test Item Value Reference Range Interpretation Comments RPR SCREEN (BEAKER) (test code = Nonreactive Nonreactive 420) Hemoglobin [id number] 09:35:00 Test Item Value Reference Range Interpretation Comments Hemoglobin A1C (test code = 4548-4) 6.0 % 4.3-6.1 Lab Interpretation (test code = Normal 26536-4) [facility] CampusHEMOGLOBIN [id number] 09:35:00 Test Item Value Reference Range Interpretation Comments HEMOGLOBIN A1C (BEAKER) (test code = 6.0 % 4.3-6.1 368) Rapid drug screen, [id number] 07:26:00 Test Item Value Reference Range Interpretation Comments Barbiturate Screen Negative Negative (test code = 04133-2) Benzodiazepine Screen Negative Negative (test code = 54912-8) Cocaine (Metab.) Negative Negative Screen (test code = 3397-7) Methadone Screen (test Negative Negative code = 36759-9) Opiate Screen (test Negative Negative code = 21109-5) Cannabinoid Screen Negative Negative (test code = 73855-9) Amph/Methamph Screen Negative Negative (test code = 20060-2) Phencyclidine Screen Negative Negative (test code = 35139-8) pH, UA (test code = 6.5 5.0-8.0 5803-2) SOMMER (test code = SOMMER) DRUG CUTOFF CONC.Cocaine 300 ng/mL Cannabinoid 50 ng/mLBenzodiazepine 200 ng/mLBarbiturate 200 ng/mLPhencyclidine 25 ng/mLOpiate 300 ng/mLMethadone 300 ng/mLAmphetamine/ 1000 ng/mL Methamphetamine This assay provides an unconfirmed qualitative test result for the clinical management of patients in emergency situations. Chain of custody not maintained. Some ipzs-buu-xstuwvt medications, as well as adulterants, may cause inaccurate results. Clinical correlation should be applied. A more comprehensive drug screen or confirmation of a detected drug may be performed upon request.Cheerleading Coach ID - VIET M Lab Interpretation Normal (test code = 72176-1) [facility] CampusRAPID DRUG SCREEN, [id number] 07:26:00 Test Item Value Reference Range Interpretation [...] situations. Chain of custody not maintained. Some indw-fkh-tievqse medications, as well as adulterants, may cause inaccurate results. Clinical correlation should be applied. A more comprehensive drug screen or confirmation of a detected drug may be performed upon request.Cheerleading Coach ID - VIET MUrinalysis with Microscopic If [id number] 07:11:00 Test Item Value Reference Range Interpretation Comments Color, UA (test code = Light Yellow 5778-6) Clarity, UA (test code = Clear 5767-9) Specific [place], UA (test 1.012 1.001-1.035 code = 5811-5) pH, UA (test code = 6.5 5.0-8.0 5803-2) Protein, UA (test code = Negative Negative 10220-5) Glucose, UA (test code = Negative Negative 365) Ketones, UA (test code = Negative Negative 2514-8) Bilirubin, UA (test code = Negative Negative 84379-3) Blood, UA (test code = Small Negative A 66042-6) Nitrite, UA (test code = Negative Negative 5802-4) Leukocytes, UA (test code Small Negative A = 5799-2) Urobilinogen, UA (test 0.2 mg/dL 0.2-1 code = 77855-6) Specimen Source (test code = 2795) SOMMER (test code = SOMMER) Cheerleading Coach ID - [auto]Cheerleading Coach ID - tech Lab Interpretation (test Abnormal code = 04969-7) [facility] CampusUrinalysis Microscopic [id number] 07:11:00 Test Item Value Reference Range Interpretation Comments RBC, UA (test 11 See_Comment [Automated me ssage] code = 54822-8) The system w [facility] generated this result transmitted ref erence range: /HPF. Th e reference range was not used to int erpret this result as normal/abnormal . WBC, UA (test 11 See_Comment [Automated me ssage] code = 5821-4) The system [facility] generated this result transmitted ref erence range: /HPF. Th e reference range was not used to int erpret this result as normal/abnormal . Mucus (test Rare code = 8247-9) Squam Epithel, 3 See_Comment [Automated m essage] UA (test code = The system w [facility] 59499-4) generated this result transmitted ref erence range: /HPF. Th e reference range was not used to int erpret this result as normal/abnormal . SOMMER (test code Cheerleading Coach ID - tech = SOMMER) [facility] CampusURINALYSIS WITH MICROSCOPIC IF [id number] 07:11:00 Test Item Value Reference Range Interpretation [...] = 463) SOURCE(BEAKER) (test code = 2795) Cheerleading Coach ID - [auto]Cheerleading Coach ID - techURINALYSIS [id number] 07:11:00 Test Item Value Reference Range Interpretation Comments RBC UA (BEAKER) (test code = 519) 11 /HPF WBC UA (BEAKER) (test code = 520) 11 /HPF MUCUS (BEAKER) (test code = 1574) Rare SQUAMOUS EPITHELIAL (BEAKER) (test 3 /HPF code = 516) Cheerleading Coach ID - techDigoxin [id number] 06:22:00 Test Item Value Reference Range Interpretation Comments Digoxin Lvl (test code = <0.30 0.8-2 L 74060-2) SOMMER (test code = SOMMER) Cheerleading Coach ID - MACHELLE L Lab Interpretation (test Abnormal code = 49356-6) [facility] CampusDIGOXIN [id number] 06:22:00 Test Item Value Reference Range Interpretation Comments DIGOXIN LEVEL (BEAKER) (test code = < ng/mL 0.80-2.00 L 669) Cheerleading Coach ID - MACHELLE AUhlpaigjsjcm3817-25-08 05:58:00 Test Item Value Reference Range Interpretation Comments Homocysteine (test code = 7.3 umol/L 5.1-15.4 72198-3) SOMMER (test code = SOMMER) Cheerleading Coach ID - MACHELLE L Lab Interpretation (test Normal code = 07446-3) [facility] CampusTSH/Free T4 If [id number] 05:58:00 Test Item Value Reference Range Interpretation Comments TSH (test code = 4.368 See_Comment [Automated 18655-5) message] The system which generated this result transmit aida reference range : 0.350 - 4.940 uIU/mL. The reference range was not used to interpret this result as normal/abnormal . SOMMER (test code = SOMMER) Cheerleading Coach ID - MACHELLE L Lab Interpretation Normal (test code = 72394-6) [facility] CampusVitamin B12 and [id number] 05:58:00 Test Item Value Reference Range Interpretation Comments Vitamin B12 (test 557 pg/mL 213-816 code = 2132-9) Folate (test code = 11.20 ng/mL See_Comment [Automa aida 2284-8) message] The system which generated this result transmit aida reference range : >=7.00. The reference range was not used to interpret this result as normal/abnormal . SOMMER (test code = SOMMER) Cheerleading Coach ID - MACHELLE L Lab Interpretation Normal (test code = 05602-2) [facility] [id number] 05:58:00 Test Item Value Reference Range Interpretation Comments HOMOCYSTEINE (BEAKER) (test code = 7.3 umol/L 5.1-15.4 642) Cheerleading Coach ID - MACHELLE LTSH/FREE T4 IF [id number] 05:58:00 Test Item Value Reference Range Interpretation Comments THYROID STIMULATING HORMONE 4.368 uIU/mL 0.350-4.940 (BEAKER) (test code = 772) Cheerleading Coach ID - MACHELLE LVITAMIN B12 AND [id number] 05:58:00 Test Item Value Reference Range Interpretation Comments VITAMIN B12 557 pg/mL 213-816 (BEAKER) (test code = 774) FOLATE (BEAKER) 11.20 ng/mL See_Comment [Automated message] (test code = 362) The system which generated this result transmitted ref erence range: >=7.00. The reference range was not used to interpr et this result as normal/abnormal . Cheerleading Coach ID - MACHELLE LC-Reactive [id number] 04:54:00 Test Item Value Reference Range Interpretation Comments CRP (test code = 676) 0.81 mg/dL 0-0.5 H SOMMER (test code = SOMMER) Cheerleading Coach ID - MACHELLE L Lab Interpretation (test Abnormal code = 76343-9) [facility] CampusMAGNESIUM2021-05-20 04:54:00 Test Item Value Reference Range Interpretation Comments MAGNESIUM (BEAKER) 2.1 mg/dL 1.6-2.6 Specimen slightly (test code = 627) hemolyzed Cheerleading Coach ID - MACHELLE [id number] 04:54:00 Test Item Value Reference Range Interpretation Comments PHOSPHORUS (BEAKER) 4.3 mg/dL 2.3-4.7 Specimen slightly (test code = 604) hemolyzed Cheerleading Coach ID - MACHELLE LBASIC METABOLIC [id number] 04:54:00 Test Item Value Reference Range Interpretation [...] S NOT APPLICABLE FOR DIALYSIS PATIEN TS. Cheerleading Coach ID - MACHELLE LC-REACTIVE [id number] 04:54:00 Test Item Value Reference Range Interpretation Comments C-REACTIVE PROTEIN (BEAKER) (test 0.81 mg/dL 0.00-0.50 H code = 676) Cheerleading Coach ID - MACHELLE LCBC W/PLT COUNT & AUTO [id number] 02:54:00 Test Item Value Reference Range Interpretation [...] = 2801) RAD, CHEST, 1 VIEW, NON [id number] 22:40:00Reason for exam:->strokeShould this be performed at the bedside?->Yes [facility] 1980 Sex: FFINAL REPORT RAD, CHEST, 1 VIEW, NON DEPT TECHNIQUE: Frontal view(s) of the chest. INDICATION: stroke. COMPARISON: 08/20/2018 chest radiograph FINDINGS/IMPRESSION: Lines/Tubes: Unchanged 2-lead pacemaker Lungs/pleura: No focal consolidation or definite interstitial pulmonary edema.No pleural effusion. No pneumothorax. Heart and Mediastinum: Unremarkable. Soft Tissues and Bones: Unremarkable. Signed: Koffi Kaur Verified Date/Time: 02/10/2021 22:40:02 Reading Location: [address] Reading Room XR chest 1 view portable / [id number] 22:40:00Interface, External Ris In - 02/10/2021 10:42 PM CDTFINAL REPORT RAD, CHEST, 1 VIEW, NON DEPT TECHNIQUE: Frontal view(s) of the chest. INDICATION: stroke. COMPARISON: 08/20/2018 chest radiograph FINDINGS/IMPRESSION: Lines/Tubes: Unchanged 2-lead pacemaker Lungs/pleura: No focal consolidation or definite interstitial pulmonary edema. No pleural effusion. No pneumothorax. Heart andMediastinum: Unremarkable. Soft Tissues and Bones: Unremarkable. Signed: Koffi Kaur Verified Date/Time: 02/10/2021 22:40:02 Reading Location: [address] Transitional Reading Room [facility]CBC [facility]/PLT [facility] & AUTO [id number] 22:16:00 Test Item Value Reference Range Interpretation [...] Range Interpretation Comments BNP (test code = 31041-0) <10 0-100 SOMMER (test code = SOMMER) Cheerleading Coach ID - BS Lab Interpretation (test Normal code = 07125-9) [facility] CampusB-TYPE NATRIURETIC FACTOR (BNP)2021-02-10 22:04:00 Test Item Value Reference Range Interpretation Comments B-TYPE NATRIURETIC PEPTIDE (BEAKER) < pg/mL 0-100 (test code = 700) Cheerleading Coach ID - BSHigh Sensitivity Troponin I ([facility]/[place] Only)2021-02-10 21:57:00 Test Item Value Reference Range Interpretation Comments Troponin I HS (test <4 See_Comment [Automa aida code = 59142-9) message] The system which generated this result transmitted reference range : <=17 pg/ml. The reference range was not used to interpret this result as normal/abnormal . SOMMER (test code = Cheerleading Coach ID - SOMMER) BSThe POLICE ACADEMY PROGRAM COORDINATOR STAT High Sensitivity Troponin-I results should be used in conjunction with other diagnostic information such as ECG, clinical observations and information, and patient symptoms to aid in the diagnosis of NC. Lab Interpretation Normal (test code = 78834-0) [facility] CampusHIGH SENSITIVITY TROPONIN [id number] 21:57:00 Test Item Value Reference Range Interpretation Comments HIGH SENSITIVITY < pg/ml See_Comment [Automated message] TROPONIN I (test code = The system which [id number]) generated this result transmitted ref erence range: <=17. Th e reference range was not used to interpr et this result as normal/abnormal . Cheerleading Coach ID - BSThe POLICE ACADEMY PROGRAM COORDINATOR STAT High Sensitivity Troponin-I results should be used in conjunctionwith other diagnostic information such as ECG, clinical observations and information, and patient symptoms to aid in the diagnosis of NC.Lipid [id number] 21:54:00 Test Item Value Reference Range Interpretation Comments Triglycerides (test 171 mg/dL Specimen code = 2571-8) markedly hemolyzed Cholesterol (test 218 mg/dL Specimen code = 2093-3) markedly hemolyzed HDL (test code = 47 mg/dL 2084-9) LDL Calculated (test 137 mg/dL code = 42155-0) SOMMER (test code = Triglyceride SOMMER) Reference Range: Low Risk <150 Borderline 150-199 High Risk 200-499 Very High Risk >=500 Cholesterol Reference Range: Low Risk <200 Borderline 200-239 High Risk >240 HDL Cholesterol Reference Range: Low Risk >=60 High Risk <40 LDL Cholesterol Reference Range: Optimal <100 Near Optimal 100-129 Borderline 130-159 High 160-189 Very High >=190 Cheerleading Coach ID - BS [facility] CampusLIPID [id number] 21:54:00 Test Item Value Reference Range Interpretation [...] Borderline 130-159 High 160-189 Very High >=190 Cheerleading Coach ID - BSComprehensive metabolic [id number] 21:52:00 Test Item Value Reference Range Interpretation Comments Protein, Total 8.0 See_Comment Specimen ranjit agee (test code = hemolyzed 2884-2) [Automated message] The system which generated this result transmit aida reference range : 6.0 - 8.3 gm/dL . The reference range was not u sed to interpret th is result as normal/abnormal . Albumin (test code 4.2 g/dL 3.5-5 Specimen slightly = 26024-1) hemolyzed Alkaline 135 U/L 40-150 Phosphatase (test code = 6768-6) Total Bilirubin 0.2 mg/dL 0.2-1.2 Specimen sli ghtly (test code = hemolyzed 1974-2) Sodium (test code = 139 meq/L 768-712 1735-2) Potassium (test 4.5 meq/L 3.5-5.1 Specimen sli ghtly code = 2823-3) hemolyzed Chloride (test code 103 meq/L 98-107 = 2075-0) CO2 (test code = 25 meq/L 22-29 2027-9) BUN (test code = 9 mg/dL 7-21 3094-0) Creatinine (test 0.78 mg/dL 0.57-1.25 Specimen sl ightly code = 2160-0) hemolyzed Glucose (test code 105 mg/dL 70-105 = 2345-7) Calcium (test code 9.6 mg/dL 8.4-10.2 = 86616-9) AST (test code = 28 U/L 5-34 Specimen sl ightly 1920-8) hemolyzed ALT (test code = 52 U/L 6-55 Specimen sl ightly 1742-6) hemolyzed EGFR (test code = 82 mL/min/1.73 [place] [address]-2) NOT ACCURATE CREATININE CLEARANCE IN PREDICTING GLOMERULAR FILTRATION RATE . ESTIMATED GFR I S NOT APPLICABLE FOR DIALYSIS PATIEN TS. SOMMER (test code = Cheerleading Coach ID - BS SOMMER) [facility] CampusCreatine Kinase (CK)2021-02-10 21:52:00 Test Item Value Reference Range Interpretation Comments Total CK (test code = 70 U/L 29-200 2157-6) SOMMER (test code = SOMMER) Cheerleading Coach ID - BS Lab Interpretation (test Normal code = 40961-5) [facility] CampusMAGNESIUM2021-05-19 21:52:00 Test Item Value Reference Range Interpretation Comments MAGNESIUM (BEAKER) 2.2 mg/dL 1.6-2.6 Specimen slightly (test code = 627) hemolyzed Cheerleading Coach ID - [id number] 21:52:00 Test Item Value Reference Range Interpretation Comments PHOSPHORUS (BEAKER) 4.4 mg/dL 2.3-4.7 Specimen slightly (test code = 604) hemolyzed Cheerleading Coach ID - BSCOMPREHENSIVE METABOLIC [id number] 21:52:00 Test Item Value Reference Range Interpretation [...] S NOT APPLICABLE FOR DIALYSIS PATIEN TS. Cheerleading Coach ID - BSCREATINE KINASE (CK)2021-02-10 21:52:00 Test Item Value Reference Range Interpretation Comments CREATINE KINASE TOTAL (BEAKER) (test 70 U/L 29-200 code = 380) Cheerleading Coach ID - [id number] 21:46:00 Test Item Value Reference Range Interpretation Comments PTT (test code = 08630-8) 30.5 See_Comment [ Automated message] The system [employer] generated this result transmitted ref erence range: 22.5 - 3 6.0 seconds. The re ference range was not u sed to interpret this result as normal/abnor mal. Lab Interpretation (test Normal code = 50928-1) [facility] CampusLactic acid, [id number] 21:46:00 Test Item Value Reference Range Interpretation Comments Lactate, Venous (test 1.96 mmol/L 0.5-2.2 Specim en code = 2872) markedly hemolyzed SOMMER (test code = SOMMER) Cheerleading Coach ID - BS Lab Interpretation Normal (test code = 18455-3) [facility] CampusAPTT2021-05-19 21:46:00 Test Item Value Reference Range Interpretation Comments PARTIAL THROMBOPLASTIN TIME 30.5 seconds 22.5-36.0 (BEAKER) (test code = 760) LACTIC ACID, [id number] 21:46:00 Test Item Value Reference Range Interpretation Comments LACTATE BLOOD VENOUS 1.96 mmol/L 0.50-2.20 Specime n markedly (2) (AKER) (test hemolyzed code = 2872) Cheerleading Coach ID - BSProthrombin time/[id number] 21:45:00 Test Item Value Reference Interpretation Comments Range Protime (test code = 12.7 See_Comment [Autom ated 5902-2) message] The system which generated this result transmitted reference range : 11.9 - 14.2 seconds. The reference range was not used to interpret this result as normal/abnormal . INR (test code = 0.98 See_Comment [Automated 3254-6) message] The system which generated this result [...] valves. Lab Interpretation Normal (test code = 52939-1) [facility] CampusPROTHROMBIN TIME/[id number] 21:45:00 Test Item Value Reference Range Interpretation Comments PROTIME (BEAKER) 12.7 seconds 11.9-14.2 (test code = 759) INR (BEAKER) (test 0.98 See_Comment [Automat ed message] code = 370) The system [employer] generated this result transmitted ref erence range: <=5.90. The reference range was not used to int erpret this result as normal/abnormal . RECOMMENDED COUMADIN/WARFARIN INR THERAPY RANGESSTANDARD DOSE: 2.0 - 3.0 Includes: PROPHYLAXIS for venous thrombosis, systemic embolization; TREATMENT for venous thrombosis and/or pulmonary embolus.HIGH RISK: Target INR is 2.5-3.5 for patients with mechanical heart valves.POC-Glucose [id number] 21:39:00 Test Item Value Reference Range Interpretation Comments POC-Glucose Meter (test 93 mg/dL 70-110 : TE STED AT [facility] code = 1538) [address] [facility], [address]: Cheerleading Coach/Techni rhonda ID = [id number] for CONCEPCIONAILYN A Lab Interpretation (test Normal code = 60193-5) [facility] CampusPOCT-GLUCOSE [id number] 21:39:00 Test Item Value Reference Range Interpretation Comments POC-GLUCOSE METER 93 mg/dL 70-110 : TESTED A T [facility] 6720 (BEAKER) (test code = [facility], 1538) [address]: Cheerleading Coach/Techni rhonda ID = [id number] for VALENCIA SGERTRUDE [id number] 15:45:00 Test Item Value Reference Range Interpretation Comments SURG (test code = SURG) RUN DATE: 09/30/20 [facility] LAB PAGE 1 RUN TIME: 1545 Specimen Inquiry RUN USER: INTERFACE PATIENT: ADAM RIVERA LOC: GA U #: [id number] AGE/SX: 40/F ROOM: RE09/29/20[facility] DR: Jaime Boone MD : 82 BED: DIS: STATUS: [facility] [place]: SPEC #: [id number]:[id number] RECD: 09/29/20 STATUS: MACIEL REChapis #: [id number] WU: 09/29/[address]: Jaime Boone MD ENTERED: 09/29/20 SP TYPE: SURG OTHR DR: Undefined Provider ORDERED: SURG PATH LVL 4 COPIES TO: Jaime Boone MD [address] [place] [id number] Undefined Provider HISTOLOGY: TISSUE ID BLK PCS DHIRAJ LEV PROCEDURE DISPOSITION ____ ___ ___ ___ STOMACH, NOS A 1 2 PROCEDURES: SURG PATH LVL 4 (09/29/20-1244) TISSUES: A. STOMACH, NOS - GASTRIC BIOPSY CLINICAL HISTORY R10.13, K21.9, K92.0, R14.0, R11.2, R19.7, R19.4 CPT CODES CPT CODE(S): 15210 , , , , , , FINAL DIAGNOSIS Stomach, biopsy: MILD CHRONIC GASTRITIS NEGATIVE FOR INTESTINAL METAPLASIA, DYSPLASIA, OR MALIGNANCY NEGATIVE FOR HELICOBACTER PYLORI ORGANISMS GROSS DESCRIPTION Gastric biopsy. Received in formalin are two wilkinson tissue fragments, 0.4 cm each, all as A. bk/nr Grossing performed at [facility] Pathology, [address] [place] [address], [address], [place] [address]. Instructor Private: Aditya Hanson M.D. CONTINUED ON NEXT PAGE RUN DATE: 09/30/20 [facility] PAGE 2 RUN TIME: 1545 Specimen Inquiry RUN USER: INTERFACE SPEC #: [facility]:S-08-15 PATIENT: SALMAADAM YOKO #[id number] (Continued) MICROSCOPIC DESCRIPTION Gastric biopsy. Sections demonstrate gastric mucosa with mild chronic inflammation. No dysplasia or malignancy is identified. No evidence of Helicobacter pylori organisms or intestinal metaplasia is seen. Signed SIGNATURE ON FILE MaeganHector M 09/30/20 1545 END OF REPORT COVID 19 INHOUSE [id number] 13:41:00 Test Item Value Reference Range Interpretation Comments COVID 19 INHOUSE AG NEGATIVE Negative Per manu facturer, (test code = negative result s should [id number]) be treated aspr esumptive and, if inconsi [...] symptoms co nsistent with COVID-19. BASIC METABOLIC [id number] 13:40:00 Test Item Value Reference Range Interpretation [...] MG/DL 8.5-10.1 N - XR CHEST 1 [id number] 13:33:00 [facility] 1980 Sex: F Name: ADAM RIVERA [facility] : 1980 Age/S: 40 / F [id number] Unit #: [id number] Loc: [place] [address] Phys: Jaime Boone MD Acct: [id number] Dis Date: Status: PRE [facility] [place] PHONE #: [phone] Exam Date: 09/28/2020 1326 FAX #: Reason: PREOP EXAMS: CPT: [id number] XR CHEST 1 V 36597 Fluoro Time: DAP (Gy m2): Air Kerma [...] and signed by: Lynda Pitts M.D. CC: Jaime Boone MD PAGE 1 Signed Report Name: ADAM RIVERA : 1980 Age/S: 40 / F [id number] Unit #: [id number] Loc: [place] [address] Phys: Jaime Boone MD Acct: [id number] Dis Date: Status: PRE SDC PHONE #: [phone] Exam Date: 09/28/2020 1326 FAX #: Reason: PREOP EXAMS: CPT: [id number] XR CHEST 1 V 81102 Fluoro Time: DAP (Gy m2): Air Kerma (mGy): (Continued) Technologist: Shari Davila RT(R)(CT) Trnscb Date/Time: 09/28/2020 (1333) [id number] Orig Print D/T: S: 09/28/2020 (9480) PAGE 2 Signed Report PROTHROMBIN [id number] 13:29:00 Test Item Value Reference Range Interpretation Comments PT PATIENT (test code = PTP) 10.6 SECONDS 9.3-12.9 N INTERNATIONAL NORMAL RATIO 0.95 INR Unit 0.8-1.2 N (test code = INR) THROMBOPLASTIN TIME [id number] 13:29:00 Test Item Value Reference Range Interpretation Comments THROMBOPLASTIN TIME PARTIAL 28.0 SECONDS 26-35 N (test code = PTT) CBC W/AUTO [id number] 13:26:00 Test Item Value Reference Range Interpretation [...] code NO DIFF/SCN CRITERIA = MDIFF) POCT-GLUCOSE [id number] 10:22:00 Test Item Value Reference Range Interpretation Comments POC-GLUCOSE METER 102 mg/dL 70-110 TESTED AT [facility] 67[address] (ARNOL) (test code = [place] 1538) [address] MR, MRA, BRAIN, WITHOUT [id number] 09:32:00Reason for exam:->Ischemic Stroke EvaluationFINAL REPORT MRA Head CLINICAL HISTORY: Ischemic Stroke TECHNIQUE: MRA of the head utilizing 3-D kcaa-zi-vjwwoy technique, with 3-D reconstructions. COMPARISON: None FINDINGS: There is no evidence of intracranial aneurysm, focal stenosis, or major branch vessel occlusion. IMPRESSION: No evidence for a major tonto [place] proximal branch vessel occlusion. MRA Neck CLINICAL HISTORY: Ischemic Stroke TECHNIQUE: MRA of the neck utilizing 2-D and 3-D dbca-zb-mxgxst technique, with 3-D reconstructions. COMPARISON: None FINDINGS: The carotid arteries in the neck are patent includingtheir bifurcations. There is antegrade flow in the vertebral arteries in the neck. IMPRESSION: No evidence of hemodynamically significant stenosis in the cervical carotid or vertebral arteries by NASCET criteria. Signed: [facility] Verified Date/Time: 08/21/2018 09:32:09 Reading Location: [address] Neuro Reading Room MR, MRA, NECK, WITHOUT IV [id number] 09:32:00Reason for exam:->Ischemic Stroke EvaluationFINAL REPORT MRA Head CLINICAL HISTORY: Ischemic Stroke TECHNIQUE: MRA of the head utilizing 3-D bcds-vi-nwuebc technique, with 3-D reconstructions. COMPARISON: None FINDINGS: There is no evidence of intracranial aneurysm, focal stenosis, or major branch vessel occlusion. IMPRESSION: No evidence for a major tonto [place] of [place] proximal branch vessel occlusion. MRA Neck CLINICAL HISTORY: Ischemic Stroke TECHNIQUE: MRA of the neck utilizing 2-D and 3-D wylf-jo-geiqic technique, with 3-D reconstructions. COMPARISON: None FINDINGS: The carotid arteries in the neck are patent includingtheir bifurcations. There is antegrade flow in the vertebral arteries in the neck. IMPRESSION: No evidence of hemodynamically significant stenosis in the cervical carotid or vertebral arteries by NASCET criteria. Signed: Santos Neff Verified Date/Time: 08/21/2018 09:32:09 Reading Location: [address] Neuro Reading Room MR, BRAIN, WITHOUT [id number] 09:25:00Reason for exam:->Ischemic Stroke EvaluationFINAL REPORT MRI [...] Neff Verified Date/Time: 08/21/2018 09:25:25 Reading Location: [address] Neuro Reading Room POCT-GLUCOSE [id number] 21:26:00 Test Item Value Reference Range Interpretation Comments POC-GLUCOSE METER 119 mg/dL 70-110 H TESTED AT [place] [address] ([facility]) (test code = [facility] 1538) [address] POCT-GLUCOSE [id number] 18:03:00 Test Item Value Reference Range Interpretation Comments POC-GLUCOSE METER 119 mg/dL 70-110 H TESTED AT [place] [address] ([facility]) (test code = [facility] 1538) [address] POCT-GLUCOSE [id number] 12:39:00 Test Item Value Reference Range Interpretation Comments POC-GLUCOSE METER 120 mg/dL 70-110 H TESTED AT [place] [address] ([facility]) (test code = AYLIN Rivera [facility] 1538) [address] RAD, CHEST, 1 VIEW, NON [id number] 12:04:00Reason for exam:->To Locate Heart Device (Pacemaker)Should [...] MDReport Verified Date/Time: 08/20/2018 12:04:06 Reading Location: [facility] Radiology Reading Room -GLUCOSE [id number] 09:17:00 Test Item Value Reference Range Interpretation Comments POC-GLUCOSE METER 121 mg/dL 70-110 H TESTED AT [place] [address] ([facility]) (test code = AY[place] Rivera [facility] 1538) [address] BASIC METABOLIC [id number] 06:56:00 Test Item Value Reference Range Interpretation [...] NOT APPLICABLE FOR DIALYSIS PATIEN TS. POCT-GLUCOSE [id number] 21:09:00 Test Item Value Reference Range Interpretation Comments POC-GLUCOSE METER 109 mg/dL 70-110 TESTED AT [facility] [address] (BEAKER) (test code = [place] Rivera [place] 1538) [address] POCT-GLUCOSE [id number] 17:15:00 Test Item Value Reference Range Interpretation Comments POC-GLUCOSE METER 117 mg/dL 70-110 H TESTED AT [facility] [address] (BEAKER) (test code = [place] Miguel [place] 1538) [address] VITAMIN B12 AND [id number] 06:39:00 Test Item Value Reference Range Interpretation Comments VITAMIN B12 (BEAKER) (test code = 524 pg/mL 213-816 774) FOLATE (BEAKER) (test code = 362) 13.5 ng/mL >=7.0 BASIC METABOLIC [id number] 05:48:00 Test Item Value Reference Range Interpretation [...] S NOT APPLICABLE FOR DIALYSIS PATIEN TS. [id number] 15:42:00 Test Item Value Reference Range Interpretation Comments RPR SCREEN (BEAKER) (test code = Nonreactive Nonreactive 420) HEMOGLOBIN [id number] 09:14:00 Test Item Value Reference Range Interpretation Comments HEMOGLOBIN A1C (BEAKER) (test code = 5.3 % 4.3-6.1 368) TSH/FREE T4 IF [id number] 04:49:00 Test Item Value Reference Range Interpretation Comments THYROID STIMULATING HORMONE 3.18 uIU/mL 0.35-4.94 (BEAKER) (test code = 772) BASIC METABOLIC [id number] 04:38:00 Test Item Value Reference Range Interpretation [...] NOT APPLICABLE FOR DIALYSIS PATIEN TS. LIPID [id number] 04:38:00 Test Item Value Reference Range Interpretation [...] 130-159 High 160-189 Very High >=190HEPATIC FUNCTION [id number] 04:38:00 Test Item Value Reference Range Interpretation [...] (test code = 413) AFB Culture and [id number] 13:24:00Specimen/Source: Wound/PACEMAKERCollected: 09/05/2017 19:45 Status: Final Last Updated: 11/01/2017 13:24 SNL-Phdov-Vhggamhgrmph (Final) (Final) 09/07/17 No acid fast bacill seen on direct smear CultureResult (Final) (Final) 11/01/17 No growth of AFB at six (6) weeksFungus Culture with [id number] 12:12:00Specimen/Source: Wound/PACEMAKERCollected: 09/05/2017 19:45 Status: Final Last Updated: 10/22/2017 12:12 Fungal Smear Result (Final) (Final) 09/06/17 No yeast or hyphae seen Culture Result (Final) (Final) 10/22/17 No fungus isolated at 6 weeks Culture, Blood [id number] 08:23:00Specimen: BloodCollected: 09/04/2017 20:30 Status: Final Last Updated: 09/10/2017 08:23 Culture Result (Final) (Final) No Growth After 5 DaysCulture, Blood [id number] 08:23:00Specimen: BloodCollected: 09/04/2017 20:15 Status: Final Last Updated: 09/10/2017 08:23 Culture Result (Final) (Final) No Growth After 5 DaysCulture, Wound Surgical 2017-09-08 08:52:00Specimen: WoundCollected: 09/05/2017 19:45 Status: Final Last Updated: 09/08/2017 08:52 Gram Stain (Final) (Final) 09/06/17 No organisms seen, Few WBC's Culture Result (Final) (Final) 09/08/17 Anaerobic culture:No anaerobes isolated at 3 days Isolate (Final) (Final) 09/07/17 Few Staph-coag positive Is olate Staph-coag positive JERMAINE (mcg/ml) Amoxicillin/Clav (AUG)<=4/2 Susceptible Ampicillin (AM) >8 Resistant Ampicillin/Sulb (A/S) <=8/4 Susceptible Cefazolin (CFZ) <=4 Susceptible Ceftriaxone (BIOINFORMATICS SOFTWARE ENGINEER) <=4 Susceptible Chloramphenicol (C) <=8 Susceptible [...] National Kidney Foundation,http ://nkd ep.nih.gov CBC with [id number] 07:39:00 Test Item Value Reference Range Interpretation [...] code = ALYMPH) 1.7 K/cumm 0.5-4.6 N Martin Abs (test code = AMONO) 0.3 K/cumm 0.0-1.2 N Eos Abs (test code = AEOS) 0.29 K/cumm 0.00-0.74 N Baso Abs (test code = ABASO) 0.0 K/cumm 0.00-0.21 N Vancomycin, [id number] 12:33:00 Test Item Value Reference Range Interpretation Comments Vanccarolynn Trou (test code = VANTR) 7.9 ug/mL 10.0-20.0 L Magnesium, [id number] 06:37:00 Test Item Value Reference Range Interpretation Comments Magnesium (test code = MG) 2.4 mg/dL 1.7-2.5 N Renal [id number] 06:29:00 Test Item Value Reference Range Interpretation [...] National Kidney Foundation,http ://nkd ep.nih.gov BHCG, Serum, [id number] 06:26:00 Test Item Value Reference Range Interpretation Comments Preg Qual [Se] (test code = BSHCG) Negative Negative N CBC with [id number] 06:24:00 Test Item Value Reference Range Interpretation [...] code = ALYMPH) 1.6 K/cumm 0.5-4.6 N Martin Abs (test code = AMONO) 0.4 K/cumm 0.0-1.2 N Eos Abs (test code = AEOS) 0.18 K/cumm 0.00-0.74 N Baso Abs (test code = ABASO) 0.0 K/cumm 0.00-0.21 N XR CHEST 1 [id number] 16:29:55XR CHEST 1 VIEWLOCATION: [id number]: None.INDICATION: REVIEW PICC LINE PLACEMENTDISCUSSION:AP chest and [...] = TSH) 3.44 mIU/mL 0.270-4.200 N Lipid [id number] 05:47:00 Test Item Value Reference Range Interpretation [...] DISEASEPu blished by Bah[place] Heart AssociationAnal yte Optimal Boderli ne Increased RiskC HOL <200 200-239 >240TRI G <150 150-199 >200HDL Male: >60 <40HDL Fema le: >60 <50LDL <100 130 -159 >160LDL NEAR OP TIMAL IS 100-129 VLDL (test code = 25 mg/dL 5-40 N VLDL) LDL/HDL (test code = 3 LDLPHDL) Basic Metabolic [id number] 05:47:00 Test Item Value Reference Range Interpretation [...] disease than se rum creatinine alone.This calculation oimd es sex and race into account, if [...] the National Kidney Foundation,http ://nkd ep.nih.gov Magnesium, [id number] 05:47:00 Test Item Value Reference Range Interpretation Comments Magnesium (test code = MG) 2.3 mg/dL 1.7-2.5 N CBC with [id number] 05:36:00 Test Item Value Reference Range Interpretation [...] code = ALYMPH) 2.2 K/cumm 0.5-4.6 N Martin Abs (test code = AMONO) 0.3 K/cumm 0.0-1.2 N Eos Abs (test code = AEOS) 0.24 K/cumm 0.00-0.74 N Baso Abs (test code = ABASO) 0.0 K/cumm 0.00-0.21 N Partial Thromboplastin [id number] 21:26:00 Test Item Value Reference Range Interpretation Comments aPTT (test code = PTT) 29.00 seconds 24.39-37.25 N Prothrombin [id number] 21:26:00 Test Item Value Reference Range Interpretation Comments PT (test code = PT) 10.70 seconds 9.78-13.35 N INR (test code = INR) 0.95 Ratio 0.6-1.2 N Comprehensive Metabolic [id number] 21:23:00 Test Item Value Reference Range Interpretation [...] National Kidney Foundation,http ://nkd ep.nih.gov CBC with [id number] 21:16:00 Test Item Value Reference Range Interpretation [...] code = ALYMPH) 2.2 K/cumm 0.5-4.6 N Martin Abs (test code = AMONO) 0.4 K/cumm 0.0-1.2 N Eos Abs (test code = AEOS) 0.17 K/cumm 0.00-0.74 N Baso Abs (test code = ABASO) 0.1 K/cumm 0.00-0.21 N
[2023-02-02 18:28] LABS: Absolute Lymphocytes (CBC) 2.1 K/uL (0.7-4.9); Hematocrit 41.6 % (36.0-45.0); Lymphocytes % 30.8 % (15.3-44.8); MCV 85.9 fL (80-100); MPV 7.8 fL (7.6-11.3); RBC Red Blood Cell Count 4.84 M/uL (3.86-4.86)
[2023-02-02] MEDS ORDERED: ONDANSETRON 4 MG/2 ML VIAL ONE (18:28)
[2023-02-02] MEDS ORDERED: NA CHLORIDE 0.9% 0 ML ONE (18:28)
[2023-02-02] MEDS ORDERED: PROMETHAZINE INJ 25 MG/ML AMP ONE (18:43)
[2023-02-02 18:44] LABS: Albumin 3.9 g/dL (3.4-5.0); Bilirubin Total 0.3 mg/dL (0.2-1.0); Protein, Total 8.4 g/dL (6.4-8.2)
[2023-02-02] MEDS ORDERED: FENTANYL CITR 100 MCG/2 ML ONE (18:44)
[2023-02-02 18:45] LABS: Potassium 4.3 mEq/L (3.5-5.1)
--- NOTE | 2023-02-02 19:00 | RAD REPORT ---
EXAM DESCRIPTION: CTAbdomen Pelvis Wo Contrast - 02/02/2023 6:42 pm CLINICAL HISTORY: ABD PAIN COMPARISON: Stone Protocol dated 06/01/2022; Abdomen Pelvis Wo Contrast dated 05/20/2022; Abdomen P sarah Wo Contrast dated 05/06/2022; Stone Protocol dated 05/18/2021 TECHNIQUE: CT of the abdomen and pelvis was performed. All CT scans are performed using dose optimization technique as appropriate and may include automated exposure control or mA/KV adjustment according to patient size. FINDINGS: Lower chest: Pacemaker. Liver: No acute abnormality or suspicious lesions. Biliary: No biliary ductal dilatation. Cholecystectomy Stomach: No significant focal abnormality. Duodenum: No significant focal abnormality. Pancreas: No significant abnormality. Spleen: No significant abnormality. Adrenal: No suspicious lesions. Kidney/ureter: No hydronephrosis. Punctate bilateral renal calculi. Retroperitoneum: No retroperitoneal adenopathy. Vascular: No aneurysm. Bowel: No significant focal abnormality. Normal appendix . Peritoneum: No ascites or free air. Bladder: Grossly unremarkable. Reproductive: No adnexal masses. Bones: No acute fracture. Other: n/a IMPRESSION: No acute intra-abdominal or pelvic finding. Nonobstructive bilateral nephrolithiasis
--- NOTE | 2023-02-02 19:31 | EDPHYS ---
Physician Documentation [facility] Name: Jenni Draper Age: 42 yrs Sex: Female : 1980 Arrival Date: 02/02/2023 Time: 17:14 Bed 19 Private MD: ED Physician Fadi Carpenter HPI: 02/02 18:00 This 42 yrs old Female presents to ER via Wheelchair with complaints of Abdominal Pain, cp Vomiting. 18:00 The patient presents with abdominal pain that is diffuse. cp 18:00 Onset: The symptoms/episode began/occurred January 25, 2023. The symptoms do not radiate. cp Associated signs and symptoms: Pertinent positives: nausea and vomiting, Pertinent negatives: chest pain, constipation, diarrhea, dysuria, fever, vomiting blood. The symptoms are described as constant. Severity of pain: in the emergency department the pain is unchanged despite home interventions. Historical: - Allergies: 17:57 Adhesives; iw 17:57 Aspirin; iw 17:57 Bactrim; iw 17:57 Benadryl; iw 17:57 Cipro IV; iw 17:57 cefixime; iw 17:57 Clindamycin; iw 17:57 coconut oil; iw 17:57 Detrol; iw 17:57 Diltiazem; iw 17:57 Doxycycline; iw 17:57 FISH PRODUCT DERIVATIVES; iw 17:57 GABAPENTIN; iw 17:57 Iodine; iw 17:57 ivabradine; iw 17:57 Latex, Natural Rubber; iw 17:57 Morphine; iw 17:57 PENICILLINS; iw 17:57 Seroquel; iw 17:57 Sulfa (Sulfonamide Antibiotics); iw 17:57 tramadol; iw - Home Meds: 17:57 Crestor 5 mg Oral tab 1 tab once daily [Active]; albuterol sulfate 2.5 mg /3 mL (0.083 iw %) Inhl nebu 3 mL 3 times per day [Active]; apixaban 5 mg Oral tab 1 tab 2 times per day [Active]; Breo Ellipta inhalation [Active]; BuSpar Oral [Active]; carvedilol 25 mg Oral tab 1 tab 2 times per day [Active]; digoxin 125 mcg (0.125 mg) Oral tab 1 tab once daily [Active]; duloxetine 30 mg Oral CDRS 1 cap once daily [Active]; Keppra 750 mg Oral tab 1 tab [Active]; Lasix 20 mg Oral tab 1 tab [Active]; pantoprazole 20 mg Oral TbEC 1 tab once daily [Active]; Restasis 0.05 % ophthalmic (eye) dpet 1 drop every 12 hours [Active]; Spiriva with HandiHaler inhalation [Active]; Vraylar 4.5 mg Oral cap once daily [Active]; Xanax 0.25 mg Oral tab 1 tab [Active]; - PMHx: 17:57 Anxiety; Atrial fibrillation; Bipolar disorder; COPD; CVA; Seizure; iw - PSHx: 17:57 hysterectomy; pacemaker; iw - Immunization history:: Adult Immunizations up to date. - Social history:: Smoking status: unknown. ROS: 18:05 Constitutional: Negative for body aches, chills, fever, poor PO intake. cp 18:05 Cardiovascular: Negative for chest pain, edema, palpitations. cp 18:05 Respiratory: Negative for cough, shortness of breath, wheezing. 18:05 Abdomen/GI: Positive for abdominal pain, nausea and vomiting, Negative for diarrhea, constipation. Exam: 18:10 Constitutional: The patient appears in no acute distress, alert, awake, non-toxic, well cp developed, well nourished, uncomfortable. 18:10 Head/Face: Normocephalic, atraumatic. cp 18:10 Eyes: Periorbital structures: appear normal, Conjunctiva: normal, no exudate, no injection, Sclera: no appreciated abnormality, Lids and lashes: appear normal, bilaterally. 18:10 ENT: External ear(s): are unremarkable, Nose: is normal, Mouth: Lips: moist, Oral mucosa: pink and intact, moist, Posterior pharynx: is normal, airway is patent, no erythema, no exudate. 18:10 Neck: ROM/movement: is normal, is supple, without pain, no range of motions limitations. 18:10 Chest/axilla: Inspection: normal. 18:10 Cardiovascular: Rate: normal, Rhythm: regular. 18:10 Respiratory: the patient does not display signs of respiratory distress, Respirations: normal, no use of accessory muscles, no retractions, labored breathing, is not present, Breath sounds: are clear throughout, no decreased breath sounds. 18:10 Abdomen/GI: Inspection: abdomen appears normal, Bowel sounds: active, all quadrants, Palpation: soft, in all quadrants, severe abdominal tenderness, in the anterior aspect of right lateral abdomen, right upper quadrant, left upper quadrant and right lower quadrant, rebound tenderness, is not appreciated, voluntary guarding, is elicited in the anterior aspect of right lateral abdomen, right upper quadrant, left upper quadrant and right lower quadrant. 18:10 Back: CVA tenderness, is absent. 18:10 Skin: cellulitis, is not appreciated, no rash present. Vital Signs: 18:01 BP 116 / 94; Pulse 98; Resp 18 S; Temp 98.2(TE); Weight 56.7 kg; Height 4 ft. 11 in. ; ll1 Pain 10/10; 19:30 BP 104 / 72; Pulse 92; Resp 18 S; Pulse Ox 97% on R/A; ha1 18:01 Body Mass Index 25.25 (56.70 kg, 149.86 cm) ll1 18:01 Pain Scale: Adult ll1 MDM: 17:51 Patient medically screened. cp 18:00 Differential diagnosis: appendicitis, bowel obstruction, diverticulitis, Endometriosis, cp gastritis, non-specific abd pain, pancreatitis, Peptic Ulcer Disease, Perf. Duodenal Ulcer, Perf. Gastric Ulcer, Pyelonephritis, Ureterolithiasis, urinary tract infection. 19:30 Data reviewed: vital signs, nurses notes, lab test result(s), radiologic studies, CT cp scan. 19:30 Consideration of Admission/Observation Escalation of care including cp admission/observation considered. I considered the following discharge prescriptions or medication management in the emergency department Medications were administered in the Emergency Department. See MAR. Counseling: I had a detailed discussion with the patient and/or guardian regarding: the historical points, exam findings, and any diagnostic results supporting the discharge/admit diagnosis, lab results, radiology results, to return to the emergency department if symptoms worsen or persist or if there are any questions or concerns that arise at home. Response to treatment: the patient's symptoms have markedly improved after treatment, and as a result, I will discharge patient. Special discussion: Based on the patient's Hx, exam, and Dx evaluation, there is no indication for emergent surgery or inpatient Tx. It is understood by the patient/guardian that if the Sx's persist or worsen they need to return immediately for re-evaluation. 02/02 17:55 Order name: CBC with Diff; Complete Time: 19:04 cp 02/02 17:55 Order name: CMP; Complete Time: 19:04 cp 02/02 19:04 Interpretation: Normal except: ALT 66; ALK 134; TP 8.4; GLOB 4.5; A/G 0.9; Reviewed. cp 02/02 17:55 Order name: Lipase; Complete Time: 19:04 cp 02/02 18:29 Order name: CT Abd/Pelvis - Without Contrast; Complete Time: 19:04 cp 02/02 17:55 Order name: IV Saline Lock; Complete Time: 17:57 cp 02/02 17:55 Order name: Labs collected and sent; Complete Time: 17:57 cp 02/02 19:06 Order name: PO challenge; Complete Time: 19:52 cp Administered Medications: 18:27 Not Given (Physician Discretion): Ondansetron IVP 4 mg IVP once; over 2 minutes cp 18:33 Not Given (no IV): NS 0.9% IV 1000 ml IV at 1 bolus Per protocol; 1000 mL bolus ll1 18:49 Drug: Promethazine IM 25 mg Route: IM; Site: right gluteus; ll1 18:50 Drug: fentaNYL (PF) IM 25 mcg Route: IM; Site: right gluteus; ll1 19:31 CANCELLED (Physician Discretion): fentaNYL (PF) IM 25 mcg IM once cp 20:08 Not Given (Patient Refused): HYDROmorphone IM 1 mg IM once ha1 Disposition: 02/03 09:00 Co-signature as Attending Physician, Fadi Carpenter MD I reviewed the patient's care rt provided by the Advanced Practice Provider and agree with the diagnosis and treatment plan. Disposition Summary: 02/02/23 19:30 Discharge Ordered Location: Home cp Problem: new cp Symptoms: have improved cp Condition: Stable cp Diagnosis - Abdominal pain, unspecified cp Followup: cp - With: Private Physician - When: 1 - 2 days - Reason: Recheck today's complaints Discharge Instructions: - Discharge Summary Sheet cp - Abdominal Pain, Adult cp - Nausea and Vomiting, Adult cp Forms: - Medication Reconciliation Form cp - Thank You Letter cp - Antibiotic Education cp - Prescription Opioid Use cp Prescriptions: - promethazine 25 mg Oral Tablet - take 1 tablet by ORAL route every 6 hours As needed; 20 tablet; Refills: 0, cp Product Selection Permitted Signatures: Dispatcher [employer] EDMS Flor Chauhan, RN RN iw Caio Briones PA PA cp Nicho Beckman RN RN ll1 Fadi Carpenter MD MD rt Angie Odom RN ha1 Corrections: (The following items were deleted from the chart) 02/02 18:34 17:56 Abdomen Pelvis W Con+CT.RAD.BRZ ordered. EDMS EDMS 19:31 19:24 fentaNYL (PF) IM 25 mcg IM once ordered. cp cp
--- NOTE | 2023-02-02 19:31 | ER ---
Nurse's Notes [facility] Name: Jenni Draper Age: 42 yrs Sex: Female : 1980 Arrival Date: 02/02/2023 Time: 17:14 Bed 19 Private MD: Diagnosis: Abdominal pain, unspecified Presentation: 02/02 17:56 Chief complaint: Patient states: abd pain all over since January 3 , getting worse, iw +vomiting, no diarrhea. Coronavirus screen: At this time, the client does not indicate any symptoms associated with coronavirus-19. Ebola Screen: Patient negative for fever greater than or equal to 101.5 degrees Fahrenheit, and additional compatible Ebola Virus Disease symptoms Patient denies exposure to infectious person. Patient denies travel to an Ebola-affected area in the 21 days before illness onset. No symptoms or risks identified at this time. Initial Sepsis Screen: Does the patient meet any 2 criteria? No. Patient's initial sepsis screen is negative. Does the patient have a suspected source of infection? No. Patient's initial sepsis screen is negative. Risk Assessment: Do you want to hurt yourself or someone else? Patient reports no desire to harm self or others. Onset of symptoms was January 25, 2023. 17:56 Method Of Arrival: Wheelchair iw 17:56 Acuity: LYUBOV 3 iw Triage Assessment: 18:02 General: Appears uncomfortable, Behavior is cooperative, appropriate for age. Pain: ll1 Complains of pain in abdomen. GI: Reports lower abdominal pain, upper abdominal pain, cramping, nausea, vomiting. Historical: - Allergies: 17:57 Adhesives; iw 17:57 Aspirin; iw 17:57 Bactrim; iw 17:57 Benadryl; iw 17:57 Cipro IV; iw 17:57 cefixime; iw 17:57 Clindamycin; iw 17:57 coconut oil; iw 17:57 Detrol; iw 17:57 Diltiazem; iw 17:57 Doxycycline; iw 17:57 FISH PRODUCT DERIVATIVES; iw 17:57 GABAPENTIN; iw 17:57 Iodine; iw 17:57 ivabradine; iw 17:57 Latex, Natural Rubber; iw 17:57 Morphine; iw 17:57 PENICILLINS; iw 17:57 Seroquel; iw 17:57 Sulfa (Sulfonamide Antibiotics); iw 17:57 tramadol; iw - Home Meds: 17:57 Crestor 5 mg Oral tab 1 tab once daily [Active]; albuterol sulfate 2.5 mg /3 mL (0.083 iw %) Inhl nebu 3 mL 3 times per day [Active]; apixaban 5 mg Oral tab 1 tab 2 times per day [Active]; Breo Ellipta inhalation [Active]; BuSpar Oral [Active]; carvedilol 25 mg Oral tab 1 tab 2 times per day [Active]; digoxin 125 mcg (0.125 mg) Oral tab 1 tab once daily [Active]; duloxetine 30 mg Oral CDRS 1 cap once daily [Active]; Keppra 750 mg Oral tab 1 tab [Active]; Lasix 20 mg Oral tab 1 tab [Active]; pantoprazole 20 mg Oral TbEC 1 tab once daily [Active]; Restasis 0.05 % ophthalmic (eye) dpet 1 drop every 12 hours [Active]; Spiriva with HandiHaler inhalation [Active]; Vraylar 4.5 mg Oral cap once daily [Active]; Xanax 0.25 mg Oral tab 1 tab [Active]; - PMHx: 17:57 Anxiety; Atrial fibrillation; Bipolar disorder; COPD; CVA; Seizure; iw - PSHx: 17:57 hysterectomy; pacemaker; iw - Immunization history:: Adult Immunizations up to date. - Social history:: Smoking status: unknown. Screenin:42 [facility] ED Fall Risk Assessment (Adult) Score/Fall Risk Level 0 - 2 = Low Risk ll1 Oriented to surroundings, Maintained a safe environment, Educated pt \T\ family on fall prevention, incl call for assistance when getting out of bed, Hourly rounding (assess needs \T\ fall precautionary measures) done. Abuse screen: Denies threats or abuse. Nutritional screening: No deficits noted. Tuberculosis screening: No symptoms or risk factors identified. Assessment: 18:20 Reassessment: No changes from previously documented assessment. Patient and/or family ll1 updated on plan of care and expected duration. Pain level reassessed. Patient is alert, oriented x 3, equal unlabored respirations, skin warm/dry/pink. 19:30 Reassessment: Patient and/or family updated on plan of care and expected duration. Pain ha1 level reassessed. Patient is alert, oriented x 3, equal unlabored respirations, skin warm/dry/pink. Reassessment: Patient denies pain at this time. Patient states feeling better. Patient states symptoms have improved. Pain: Denies pain. 19:30 GI: Bowel sounds present X 4 quads. Abd is soft and non tender X 4 quads. ha1 Vital Signs: 18:01 BP 116 / 94; Pulse 98; Resp 18 S; Temp 98.2(TE); Weight 56.7 kg; Height 4 ft. 11 in. ; ll1 Pain 10/10; 19:30 BP 104 / 72; Pulse 92; Resp 18 S; Pulse Ox 97% on R/A; ha1 18:01 Body Mass Index 25.25 (56.70 kg, 149.86 cm) ll1 18:01 Pain Scale: Adult ll1 ED Course: 17:17 Patient arrived in ED. rg4 17:17 Caio Briones PA is PHCP. cp 17:17 Fadi Carpenter MD is Attending Physician. cp 17:50 Nicho Beckman RN is Primary Nurse. ll1 17:50 Arm band placed on Patient placed in an exam room, on a stretcher. ll1 17:56 Triage completed. iw 18:17 Missed attempt(s): 22 gauge in right upper arm. Bleeding controlled, band aid applied, ll1 catheter tip intact. 18:17 Missed attempt(s): 24 gauge in right antecubital area. Bleeding controlled, band aid ll1 applied, catheter tip intact. 18:42 Patient has correct armband on for positive identification. Bed in low position. Call ll1 light in reach. Client placed on continuous cardiac and pulse oximetry monitoring. NIBP monitoring applied. 18:44 CT Abd/Pelvis - Without Contrast In Process Unspecified. EDMS 20:06 No provider procedures requiring assistance completed. Patient did not have IV access ha1 during this emergency room visit. Administered Medications: 18:27 Not Given (Physician Discretion): Ondansetron IVP 4 mg IVP once; over 2 minutes cp 18:33 Not Given (no IV): NS 0.9% IV 1000 ml IV at 1 bolus Per protocol; 1000 mL bolus ll1 18:49 Drug: Promethazine IM 25 mg Route: IM; Site: right gluteus; ll1 18:50 Drug: fentaNYL (PF) IM 25 mcg Route: IM; Site: right gluteus; ll1 19:31 CANCELLED (Physician Discretion): fentaNYL (PF) IM 25 mcg IM once cp 20:08 Not Given (Patient Refused): HYDROmorphone IM 1 mg IM once ha1 Medication: 18:42 VIS not applicable for this client. ll1 Outcome: 19:30 Discharge ordered by MD. cp 20:07 Discharged to home ambulatory, with family. ha1 20:07 Condition: stable 20:07 Discharge instructions given to patient, family, Instructed on discharge instructions, follow up and referral plans. the need for admit, medication usage, Demonstrated understanding of instructions, follow-up care, medications, Prescriptions given X 1. 20:08 Patient left the ED. ha1 Signatures: Dispatcher [employer] EDMS Flor Chauhan RN RN iw Caio Briones PA PA cp Garcia, Rubi rg4 Nicho Beckman RN RN 1 Angie Odom RN RN 1 Corrections: (The following items were deleted from the chart) 18:15 18:01 Resp 18bpm; Spontaneous; Temp 98.2F Temporal; 56.7 kg; Height 4 ft. 11 in.; BMI: ll1 25.2; Pain 10/10, Adult; iw
[2023-02-02] MEDS ORDERED: HYDROMORPHONE HCL 1 MG/ML INJ ONE (20:02)
[2023-02-02 20:13] VITALS: TEMP 98.2
[2023-02-02 20:14] VITALS: BP 104/72; O2SAT 97
== END 2023-02-02 20:08 | disposition home or self-care (01) ==
LOC: ER 17:14
DX: R10.31 Right lower quadrant pain (principal); R11.2 Nausea with vomiting, unspecified; I48.91 Unspecified atrial fibrillation; Z95.0 Presence of cardiac pacemaker; Z79.01 Long term (current) use of anticoagulants; Z86.73 Personal history of transient ischemic attack (TIA), and cerebral infarction without residual deficits; F31.9 Bipolar disorder, unspecified; Z88.0 Allergy status to penicillin; Z88.1 Allergy status to other antibiotic agents; Z88.2 Allergy status to sulfonamides; Z88.3 Allergy status to other anti-infective agents; Z88.5 Allergy status to narcotic agent; Z88.6 Allergy status to analgesic agent; Z88.8 Allergy status to other drugs, medicaments and biological substances; Z91.013 Allergy to seafood; Z91.040 Latex allergy status; Z91.048 Other nonmedicinal substance allergy status
CPT/HCPCS: 85025; 36415; 83690; 80053; 74176; 96372; 99284; J2550; J3010; J1170; J2405; J7030

== ENCOUNTER 2024-03-18 18:19 | Emergency (ER) | payer OTHER ==
[2024-03-18] MEDS ORDERED: METOCLOPRAMIDE 10 MG/2mL INJ ONE (19:28)
[2024-03-18] MEDS ORDERED: ONDANSETRON 4 MG/2 ML VIAL ONE (19:28)
[2024-03-18] MEDS ORDERED: NA CHLORIDE 0.9% 1,000 ML ONE (19:28)
[2024-03-18 19:49] LABS: Absolute Eosinophils 0.2 K/uL (0-0.5); Absolute Lymphocytes (CBC) 2.2 K/uL (0.7-4.9); Absolute Monocytes 0.4 K/uL (0.1-1.3); Absolute Neutrophil 3.3 K/uL (1.8-8.0); Basophils % 0.7 % (0-1.3); Eosinophils % 2.9 % (0-4.4); Hemoglobin 13.2 g/dL (12.0-15.0); Lymphocytes % 35.3 % (15.3-44.8); MCH 28.8 pg (27.0-35.0); MCHC 33.1 g/dL (32.0-36.0); MPV 7.9 fL (7.6-11.3); Monocytes % 6.8 % (3.3-12.3); Neutrophils % 54.3 % (41.7-73.7); Platelets 253 thou/uL (152-406); Red Cell Distribution Width 13.4 % (12.1-15.2)
[2024-03-18 19:55] LABS: PT Prothrombin Time 11.6 SECONDS (9.4-12.5); PTT, Activated Partial Thromb 35.6 SECONDS (24.3-36.9); Protime INR 1.06
[2024-03-18 20:02] LABS: ALT/SGPT 30 U/L (13-56); AST/SGOT 22 U/L (15-37); Albumin 3.6 g/dL (3.4-5.0); Albumin/Globulin Ratio 0.9 (1.1-1.8); Alkaline Phosphatase 112 U/L (45-117); BUN Blood Urea Nitrogen 14 mg/dL (7-18); Bicarbonate 30 mEq/L (21-32); Bilirubin Total 0.3 mg/dL (0.2-1.0); Globulin 3.8 g/dL (2.3-3.5); Glomerular Filtration Rate 100 ml/min (=/>90); Glucose Level 99 mg/dL (74-106); Protein, Total 7.4 g/dL (6.4-8.2); Sodium Level 141 mEq/L (136-145)
[2024-03-18 20:09] LABS: Specific Gravity 1.017 (1.005-1.030); Sqamous Epithelial <5 /HPF (None Seen); Urine Bacteria <20 /HPF (<20); Urine Bilirubin NEGATIVE (Negative); Urine Blood Negative (Negative); Urine Clarity Extremely Turbid (Clear); Urine Color Light-Yellow (Yellow); Urine Crystals Unidentified Few /HPF (None Seen); Urine Culture Reflex Order NOT NEEDED; Urine Glucose NEGATIVE (Negative); Urine Ketones NEGATIVE (Negative); Urine Microscopic Reflex YN ORDER UMIC; Urine Nitrite NEGATIVE (Negative); Urine Protein NEGATIVE (Negative); Urine RBC <5 /HPF (None Seen); Urine Urobilinogen Normal (Normal); Urine WBC <5 /HPF (<5)
[2024-03-18 20:09] LABS: Bilirubin Direct < 0.2 mg/dL (0-0.2); Bilirubin Indirect, Calculated 0.1 mg/dL (0.2-0.8)
[2024-03-18 20:15] LABS: Barbiturates NEGATIVE (NEGATIVE); Benzodiazepines NEGATIVE (NEGATIVE); Cocaine NEGATIVE (NEGATIVE); METHAMPHETAM NEGATIVE (NEGATIVE); Methadone NEGATIVE (NEGATIVE); Opiates NEGATIVE (NEGATIVE); Phencyclidine NEGATIVE (NEGATIVE); THC Cannibis NEGATIVE (NEGATIVE)
[2024-03-18] MEDS ORDERED: LORazepam 2 MG/ML VIAL ONE (20:45)
[2024-03-18] MEDS ORDERED: NA CHLORIDE 0.9% 100 ML ONE (20:46)
[2024-03-18] MEDS ORDERED: FOSPHENYTOIN PE 500 MG/10 ML VIAL ONE (20:46)
[2024-03-18] MEDS ORDERED: NA CHLORIDE 0.9% 250 ML ONE (20:52)
--- NOTE | 2024-03-18 21:53 | ER ---
Nurse's Notes [facility] Name: Jenni Draper Age: 43 yrs Sex: Female : 1980 Arrival Date: 03/18/2024 Time: 18:19 Bed DX1 Private MD: Diagnosis: Other seizures Presentation: 03/18 18:51 Chief complaint: Patient states: Had 3 seizures at home, c/o nausea and headache, hx of ph seizures. Coronavirus screen: Vaccine status: Patient reports receiving the 2nd dose of the covid vaccine. Ebola Screen: No symptoms or risks identified at this time. Initial Sepsis Screen: Does the patient meet any 2 criteria? No. Patient's initial sepsis screen is negative. Does the patient have a suspected source of infection? No. Patient's initial sepsis screen is negative. Risk Assessment: Do you want to hurt yourself or someone else? Patient reports no desire to harm self or others. Onset of symptoms was March 18, 2024. 18:51 Method Of Arrival: Wheelchair ph 18:51 Acuity: LYUBOV 3 ph Historical: - Allergies: 18:52 Adhesives; ph 18:52 Aspirin; ph 18:52 Bactrim; ph 18:52 Benadryl; ph 18:52 cefixime; ph 18:52 Cipro IV; ph 18:52 Clindamycin; ph 18:52 coconut oil; ph 18:52 Detrol; ph 18:52 Diltiazem; ph 18:52 Doxycycline; ph 18:52 FISH PRODUCT DERIVATIVES; ph 18:52 Iodine; ph 18:52 ivabradine; ph 18:52 Latex; ph 18:52 GABAPENTIN; ph 18:52 Morphine; ph 18:52 PENICILLINS; ph 18:52 Seroquel; ph 18:52 tramadol; ph 18:52 Sulfa (Sulfonamide Antibiotics); ph - PMHx: 18:52 Anxiety; Atrial fibrillation; Bipolar disorder; COPD; CVA; Seizure; ph - PSHx: 18:52 hysterectomy; pacemaker; ph - Immunization history:: Adult Immunizations unknown. - Infectious Disease History:: Denies. - Social history:: Smoking status: Patient reports the use of cigarette tobacco products, smokes one-half pack cigarettes per day. Screenin:30 [facility] ED Fall Risk Assessment (Adult) History of falling in the last 3 months, lg3 including since admission No falls in past 3 months (0 pts) Confusion or Disorientation No (0 pts) Intoxicated or Sedated No (0 pts) Impaired Gait No (0 pts) Mobility Assist Device Used No (0 pt) Altered Elimination No (0 pt) Score/Fall Risk Level 0 - 2 = Low Risk Oriented to surroundings, Maintained a safe environment, Educated pt \T\ family on fall prevention, incl call for assistance when getting out of bed, Assessed \T\ reinforced patient's understanding of fall precautions. Abuse screen: Denies threats or abuse. Denies injuries from another. Nutritional screening: No deficits noted. Tuberculosis screening: No symptoms or risk factors identified. Assessment: 19:30 General: Appears in no apparent distress. comfortable, Behavior is calm, cooperative. lg3 Pain: Complains of pain in head Pain does not radiate. Neuro: No deficits noted. Foss Agitation-Sedation Scale (RASS): 0 - Alert and Calm Level of Consciousness is awake, alert, obeys commands, Oriented to person, place, time, situation, Reports headache. Cardiovascular: No deficits noted. Denies chest pain, shortness of breath, Capillary refill < 3 seconds Clubbing of nail beds is absent JVD is absent Patient's skin is warm and dry. Respiratory: No deficits noted. Airway is patent Respiratory effort is even, unlabored, Respiratory pattern is regular, symmetrical. GI: No deficits noted. Abdomen is round non-distended, Reports nausea. : No deficits noted. No signs and/or symptoms were reported regarding the genitourinary system. EENT: No deficits noted. No signs and/or symptoms were reported regarding the EENT system. Derm: No deficits noted. No signs and/or symptoms reported regarding the dermatologic system. Skin is intact, is healthy with good turgor, Skin is dry, Skin is normal, Skin temperature is warm. Musculoskeletal: No deficits noted. Circulation, motion, and sensation intact. Range of motion: intact in all extremities. 22:29 Reassessment: Patient appears in no apparent distress at this time. No changes from lg3 previously documented assessment. Patient and/or family updated on plan of care and expected duration. Pain level reassessed. Patient is alert, oriented x 3, equal unlabored respirations, skin warm/dry/pink. Vital Signs: 18:51 BP 106 / 61; Pulse 85; Resp 18; Temp 98.2; Pulse Ox 98% on R/A; Weight 52.16 kg; Height ph 4 ft. 11 in. ; 22:29 BP 114 / 69; Pulse 81; Resp 82; Temp 98.1(O); Pulse Ox 99% on R/A; lg3 18:51 Body Mass Index 23.23 (52.16 kg, 149.86 cm) ph ED Course: 18:22 Patient arrived in ED. rg4 18:42 Caio Briones PA is PHCP. cp 18:42 Tanner Robbins MD is Attending Physician. cp 18:52 Triage completed. ph 18:54 Arm band placed on Patient placed in waiting room, Patient notified of wait time. ph 19:30 Patient has correct armband on for positive identification. Warm blanket given. lg3 19:37 Inserted saline lock: 22 gauge in right forearm, using aseptic technique. Blood lg3 collected. 19:37 Initial lab(s) drawn, by ED staff, sent to lab. lg3 19:57 Acetaminophen Sent. rc3 19:57 Basic Metabolic Panel Sent. rc3 19:57 ETOH Level Sent. rc3 19:57 Hepatic Function Sent. rc3 19:57 Salicylate Sent. rc3 19:57 Urinalysis w/ reflexes Sent. rc3 22:29 No provider procedures requiring assistance completed. IV discontinued, intact, lg3 bleeding controlled, No redness/swelling at site. Pressure dressing applied. Administered Medications: 19:37 Drug: metoCLOPramide IVP 10 mg IVP once; over 1 to 2 minutes Route: IVP; Site: right lg3 forearm; 22:31 Follow up: Response: No adverse reaction lg3 19:37 Drug: Ondansetron IVP 4 mg IVP once; over 2 minutes Route: IVP; Site: right forearm; lg3 22:30 Follow up: Response: No adverse reaction lg3 19:38 Drug: NS 0.9% IV 1000 ml IV at 1 bolus Per protocol; 1000 mL bolus Route: IV; Rate: 1 lg3 bolus; Site: right forearm; 22:31 Follow up: Response: No adverse reaction; IV Status: Completed infusion; IV Intake: lg3 1000ml 20:51 Drug: Ativan IVP 1 mg IVP once Route: IVP; Site: right forearm; lg3 22:30 Follow up: Response: No adverse reaction lg3 20:51 Drug: Fosphenytoin IVPB 1 grams IVPB once; (mix in 50 to 100mL NS) Route: IVPB; Site: lg3 right forearm; 22:30 Follow up: Response: No adverse reaction; IV Status: Completed infusion; IV Intake: lg3 120ml 20:56 Drug: NS 0.9% IV 250 ml IV at bolus once Route: IV; Rate: bolus; Site: right forearm; lg3 22:30 Follow up: Response: No adverse reaction; IV Status: Completed infusion; IV Intake: lg3 250ml Medication: 19:30 VIS not applicable for this client. lg3 Intake: 22:30 IV: 250ml; Total: 250ml. lg3 22:30 IV: 120ml; Total: 370ml. lg3 22:31 IV: 1000ml; Total: 1370ml. lg3 Outcome: 21:52 Discharge ordered by MD. cp 22:29 Discharged to home ambulatory, lg3 22:29 Condition: stable 22:29 Discharge instructions given to patient, Instructed on discharge instructions, follow up and referral plans. Demonstrated understanding of instructions, follow-up care, 22:31 Patient left the ED. lg3 Signatures: Darlnee Perry, RN RN Caio Edwards PA PA cp Garcia, Rubi rg4 Yuliya Perez RN RN lg3 Aubree Casillas 3
--- NOTE | 2024-03-18 21:53 | EDPHYS ---
Physician Documentation [facility] Name: Jenni Draper Age: 43 yrs Sex: Female : 1980 Arrival Date: 03/18/2024 Time: 18:19 Bed DX1 Private MD: ED Physician Tanner Robbins HPI: 03/18 19:05 This 43 yrs old Female presents to ER via Wheelchair with complaints of Seizure. cp 19:05 The patient presents with a history of multiple seizures, a total of 3. Associated cp injury: The patient did not suffer any apparent associated injury. 19:05 Seizure Hx: Seizure medications: Keppra. cp 19:05 Current symptoms: headache. cp Historical: - Allergies: 18:52 Adhesives; ph 18:52 Aspirin; ph 18:52 Bactrim; ph 18:52 Benadryl; ph 18:52 cefixime; ph 18:52 Cipro IV; ph 18:52 Clindamycin; ph 18:52 coconut oil; ph 18:52 Detrol; ph 18:52 Diltiazem; ph 18:52 Doxycycline; ph 18:52 FISH PRODUCT DERIVATIVES; ph 18:52 Iodine; ph 18:52 ivabradine; ph 18:52 Latex; ph 18:52 GABAPENTIN; ph 18:52 Morphine; ph 18:52 PENICILLINS; ph 18:52 Seroquel; ph 18:52 tramadol; ph 18:52 Sulfa (Sulfonamide Antibiotics); ph - PMHx: 18:52 Anxiety; Atrial fibrillation; Bipolar disorder; COPD; CVA; Seizure; ph - PSHx: 18:52 hysterectomy; pacemaker; ph - Immunization history:: Adult Immunizations unknown. - Infectious Disease History:: Denies. - Social history:: Smoking status: Patient reports the use of cigarette tobacco products, smokes one-half pack cigarettes per day. ROS: 19:10 Constitutional: Negative for body aches, chills, fever, poor PO intake, cp 19:10 Eyes: Positive for photophobia, cp 19:10 ENT: Negative for drainage from ear(s), ear pain, sore throat, difficulty swallowing, difficulty handling secretions, 19:10 Neck: Negative for pain with movement, pain at rest, stiffness, 19:10 Cardiovascular: Negative for chest pain, 19:10 Respiratory: Negative for cough, shortness of breath, wheezing, 19:10 Abdomen/GI: Negative for abdominal pain, vomiting, diarrhea, constipation, 19:10 Back: Negative for pain at rest, pain with movement, 19:10 Neuro: Positive for headache, hx of multiple seizures, Negative for altered mental status, actively seizing, 19:10 All other systems are negative, Exam: 19:15 Constitutional: The patient appears in no acute distress, alert, awake, cp non-diaphoretic, non-toxic, well developed, well nourished, uncomfortable, 19:15 Head/Face: Normocephalic, atraumatic. cp 19:15 Eyes: Periorbital structures: appear normal, Pupils: equal, round, and reactive to light and accomodation, Extraocular movements: intact throughout, Conjunctiva: normal, no exudate, no injection, Sclera: no appreciated abnormality, Lids and lashes: appear normal, bilaterally, 19:15 ENT: External ear(s): are unremarkable, Nose: is normal, Mouth: Lips: moist, Oral mucosa: pink and intact, moist, Posterior pharynx: Airway: no evidence of obstruction, patent, 19:15 Neck: C-spine: vertebral tenderness, is not appreciated, crepitus, is not appreciated, ROM/movement: Meningeal signs: are not present, nuchal rigidity, is not appreciated, 19:15 Chest/axilla: Inspection: normal, 19:15 Cardiovascular: Rate: normal, Rhythm: regular, 19:15 Respiratory: the patient does not display signs of respiratory distress, Respirations: normal, no use of accessory muscles, no retractions, labored breathing, is not present, Breath sounds: are clear throughout, no decreased breath sounds, no stridor, no wheezing, 19:15 Abdomen/GI: Inspection: abdomen appears normal, Palpation: abdomen is soft and non-tender, in all quadrants, 19:15 Musculoskeletal/extremity: Exam is negative for decreased range of motion, deformity, injury, 19:15 Neuro: Orientation: to person, place \T\ time. Mentation: able to follow commands, slow to respond, Motor: moves all fours, Sensation: no obvious gross deficits, 19:53 ECG was reviewed by the Attending Physician. cp Vital Signs: 18:51 BP 106 / 61; Pulse 85; Resp 18; Temp 98.2; Pulse Ox 98% on R/A; Weight 52.16 kg; Height ph 4 ft. 11 in. ; 22:29 BP 114 / 69; Pulse 81; Resp 82; Temp 98.1(O); Pulse Ox 99% on R/A; lg3 18:51 Body Mass Index 23.23 (52.16 kg, 149.86 cm) ph MDM: 18:53 Patient medically screened. 20:00 Differential diagnosis: cerebral vascular accident, drug overdose, cardiac arrhythmia, cp seizure, TIA. 21:50 Data reviewed: vital signs, nurses notes, lab test result(s), and as a result, I will cp discharge patient. 21:51 I considered the following discharge prescriptions or medication management in the emergency department Medications were administered in the Emergency Department. See MAR. 21:51 Care significantly affected by the following chronic conditions: Chronic Obstructive cp Pulmonary Disease. Counseling: I had a detailed discussion with the patient and/or guardian regarding the historical points, exam findings, and any diagnostic results supporting the discharge/admit diagnosis, lab results, to return to the emergency department if symptoms worsen or persist or if there are any questions or concerns that arise at home. Response to treatment: the patient's symptoms have markedly improved after treatment, and as a result, I will discharge patient. 03/18 18:56 Order name: Acetaminophen; Complete Time: 20:30 03/18 18:56 Order name: Basic Metabolic Panel; Complete Time: 20:30 03/18 18:56 Order name: CBC with Diff; Complete Time: 20:30 03/18 18:56 Order name: ETOH Level; Complete Time: 20:30 03/18 18:56 Order name: Hepatic Function; Complete Time: 20:30 03/18 18:56 Order name: PT-INR; Complete Time: 20:30 03/18 18:56 Order name: Ptt, Activated; Complete Time: 20:30 03/18 18:56 Order name: Salicylate; Complete Time: 20:30 03/18 18:56 Order name: Urinalysis w/ reflexes; Complete Time: 20:30 03/18 18:56 Order name: Urine Drug Screen; Complete Time: 20:30 03/18 18:56 Order name: EKG; Complete Time: 18:57 03/18 18:56 Order name: EKG - Nurse/Tech; Complete Time: 19:52 cp 03/18 18:56 Order name: IV Saline Lock; Complete Time: 19:38 cp 03/18 18:56 Order name: Labs collected and sent; Complete Time: 19:38 cp 03/18 18:56 Order name: Suicide Screening (Jennifer); Complete Time: 19:38 cp EC:53 Rate is 82 beats/min. Rhythm is regular. [place] interval is normal. QRS interval is normal. cp QT interval is normal. T waves are Inverted in lead aVR. Interpreted by me. Reviewed by me. Administered Medications: 19:37 Drug: metoCLOPramide IVP 10 mg IVP once; over 1 to 2 minutes Route: IVP; Site: right lg3 forearm; 22:31 Follow up: Response: No adverse reaction lg3 19:37 Drug: Ondansetron IVP 4 mg IVP once; over 2 minutes Route: IVP; Site: right forearm; lg3 22:30 Follow up: Response: No adverse reaction lg3 19:38 Drug: NS 0.9% IV 1000 ml IV at 1 bolus Per protocol; 1000 mL bolus Route: IV; Rate: 1 lg3 bolus; Site: right forearm; 22:31 Follow up: Response: No adverse reaction; IV Status: Completed infusion; IV Intake: lg3 1000ml 20:51 Drug: Ativan IVP 1 mg IVP once Route: IVP; Site: right forearm; lg3 22:30 Follow up: Response: No adverse reaction lg3 20:51 Drug: Fosphenytoin IVPB 1 grams IVPB once; (mix in 50 to 100mL NS) Route: IVPB; Site: lg3 right forearm; 22:30 Follow up: Response: No adverse reaction; IV Status: Completed infusion; IV Intake: lg3 120ml 20:56 Drug: NS 0.9% IV 250 ml IV at bolus once Route: IV; Rate: bolus; Site: right forearm; lg3 22:30 Follow up: Response: No adverse reaction; IV Status: Completed infusion; IV Intake: lg3 250ml Disposition Summary: 03/18/24 21:52 Discharge Ordered Notes: Location: Home cp Problem: an acute exacerbation cp Symptoms: have improved cp Condition: Stable cp Diagnosis - Other seizures cp Followup: cp - With: Private Physician - When: 2 - 3 days - Reason: Recheck today's complaints Discharge Instructions: - Discharge Summary Sheet cp - Seizure, Adult cp Forms: - Medication Reconciliation Form cp - Antibiotic Education cp - Prescription Opioid Use cp - Patient Portal Instructions cp - Leadership Thank You Letter cp Addendum: 03/20/2024 09:02 Co-signature as Attending Physician, Tanner Robbins MD I reviewed the patient's care r n provided by the Advanced Practice Provider and agree with the diagnosis and treatment plan. Signatures: Dispatcher [employer] EDMS Tanner Robbins MD MD rn Hall, Patricia RN RN ph Caio Briones PA PA cp Able, Lacie RN RN lg3 Kathleen Cain PA-C PA-Lila [id number] Corrections: (The following items were deleted from the chart) 03/18 18:57 18:57 ACETAMINOPHEN+C.LAB.BRZ ordered. EDMS EDMS 18:57 18:57 BASIC METABOLIC PANEL+C.LAB.BRZ ordered. EDMS EDMS 18:57 18:57 CBC+H.LAB.BRZ ordered. EDMS EDMS 18:57 18:57 ETHANOL+C.LAB.BRZ ordered. EDMS EDMS 18:57 18:57 HEPATIC FUNCTION+C.LAB.BRZ ordered. EDMS EDMS 18:57 18:57 PROTIME (+INR)+COAG.LAB.BRZ ordered. EDMS EDMS 18:57 18:57 PTT, ACTIVATED+COAG.LAB.BRZ ordered. EDMS EDMS 18:57 18:57 SALICYLATE+C.LAB.BRZ ordered. EDMS EDMS 18:57 18:57 Urinalysis+U.LAB.BRZ ordered. EDMS EDMS 18:57 18:57 URINE DRUG SCREEN+UC.LAB.BRZ ordered. EDMS EDMS
[2024-03-19 05:57] VITALS: BP 114/69; TEMP 98.1; O2SAT 99
--- NOTE | 2024-03-19 12:43 | EKG ---
Test Date: 2024-03-18 Test Time: 19:46:08 Data Conversion Developer: MARY MEASUREMENT RESULTS: Intervals: Rate: 82 OK: 164 QRSD: 86 QT: 372 QTc: 434 [place]: P: 68 OK: 164 QRS: 34 T: 41 INTERPRETIVE STATEMENTS: Normal sinus rhythm Normal ECG Compared to ECG 07/22/2022 20:37:30 No significant changes Electronically Signed On 03-19-24 12:41:35 CDT by Judson Payne
== END 2024-03-18 22:31 | disposition home or self-care (01) ==
LOC: ER 18:19
DX: G40.89 Other seizures (principal); F31.9 Bipolar disorder, unspecified; F17.210 Nicotine dependence, cigarettes, uncomplicated; Z95.0 Presence of cardiac pacemaker
CPT/HCPCS: 96365; 96361; 93005; 85025; 81001; 80048; 36415; 85610; 80076; 85730; 80307; 96375; 99284; 80143; 80179; 82077; Q2009; J2765; J2405; J7050; J7030

== ENCOUNTER 2024-03-19 18:11 | Inpatient (IN) | payer OTHER ==
[2024-03-19] MEDS ORDERED: LORazepam 2 MG/ML VIAL ONE (19:39)
[2024-03-19] MEDS ORDERED: NA CHLORIDE 0.9% 1,000 ML ONE (19:40)
[2024-03-19] MEDS ORDERED: LEVETIRACETAM 500 MG/5 ML VIAL IV ONE (19:40)
[2024-03-19] MEDS ORDERED: NA CHLORIDE 0.9% 100 ML ONE (19:40)
[2024-03-19 19:46] LABS: Absolute Eosinophils 0.1 K/uL (0-0.5); Absolute Lymphocytes (CBC) 1.9 K/uL (0.7-4.9); Absolute Monocytes 0.5 K/uL (0.1-1.3); Absolute Neutrophil 2.8 K/uL (1.8-8.0); Basophils % 0.7 % (0-1.3); Eosinophils % 2.4 % (0-4.4); Hematocrit 36.1 % (36.0-45.0); Hemoglobin 12.1 g/dL (12.0-15.0); Lymphocytes % 34.9 % (15.3-44.8); MCH 28.9 pg (27.0-35.0); MCHC 33.4 g/dL (32.0-36.0); MCV 86.6 fL (80-100); MPV 7.8 fL (7.6-11.3); Monocytes % 9.1 % (3.3-12.3); Neutrophils % 52.9 % (41.7-73.7); Nucleated Red Blood Cells % 0.3 % (0-0); Platelets 246 thou/uL (152-406); RBC Red Blood Cell Count 4.17 M/uL (3.86-4.86); Red Cell Distribution Width 13.3 % (12.1-15.2)
[2024-03-19 19:52] LABS: PT Prothrombin Time 12.1 SECONDS (9.4-12.5); Protime INR 1.1
[2024-03-19 20:03] LABS: ALT/SGPT 29 U/L (13-56); AST/SGOT 19 U/L (15-37); Albumin 3.5 g/dL (3.4-5.0); Albumin/Globulin Ratio 1.1 (1.1-1.8); Alkaline Phosphatase 97 U/L (45-117); Anion Gap 5.9 mEq/L (5.0-15.0); BUN Blood Urea Nitrogen 9 mg/dL (7-18); Bicarbonate 29 mEq/L (21-32); Bilirubin Total 0.3 mg/dL (0.2-1.0); Globulin 3.3 g/dL (2.3-3.5); Glomerular Filtration Rate 111 ml/min (=/>90); Glucose Level 101 mg/dL (74-106); Potassium 3.9 mEq/L (3.5-5.1); Protein, Total 6.8 g/dL (6.4-8.2); Sodium Level 140 mEq/L (136-145)
--- NOTE | 2024-03-19 20:04 | RAD REPORT ---
EXAM DESCRIPTION: CT - Head Brain Wo Cont - 03/19/2024 7:47 pm CLINICAL HISTORY: Seizure COMPARISON: none TECHNIQUE: Computed axial tomography of the head was obtained. IV contrast was not requested. All CT scans are performed using dose optimization technique as appropriate and may include automated exposure control or mA/KV adjustment according to patient size. FINDINGS: An intracranial bleed is not seen The ventricles are normal in caliber No significant hypodense areas within the brain visualized No extra-axial fluid collection is noted. Fluid within the sinuses/ mastoids is not seen IMPRESSION: No acute intracranial abnormality is seen If patient's symptoms persist MRI of the brain would be recommended
[2024-03-19 20:05] LABS: Bilirubin Direct < 0.2 mg/dL (0-0.2); Bilirubin Indirect, Calculated 0.1 mg/dL (0.2-0.8)
[2024-03-19 20:20] LABS: Specific Gravity 1.009 (1.005-1.030); Sqamous Epithelial <5 /HPF (None Seen); Urine Bacteria None Seen /HPF (<20); Urine Bilirubin NEGATIVE (Negative); Urine Blood Negative (Negative); Urine Clarity Clear (Clear); Urine Color Colorless (Yellow); Urine Culture Reflex Order NOT NEEDED; Urine Glucose NEGATIVE (Negative); Urine Ketones NEGATIVE (Negative); Urine Microscopic Reflex YN ORDER UMIC; Urine Nitrite NEGATIVE (Negative); Urine Protein NEGATIVE (Negative); Urine RBC None Seen /HPF (None Seen); Urine Urobilinogen Normal (Normal); Urine WBC <5 /HPF (<5)
[2024-03-19 20:23] LABS: Barbiturates NEGATIVE (NEGATIVE); Benzodiazepines NEGATIVE (NEGATIVE); Cocaine NEGATIVE (NEGATIVE); METHAMPHETAM NEGATIVE (NEGATIVE); Methadone NEGATIVE (NEGATIVE); Opiates NEGATIVE (NEGATIVE); Phencyclidine NEGATIVE (NEGATIVE); Specific Gravity 1.009 (1.005-1.030); THC Cannibis NEGATIVE (NEGATIVE)
[2024-03-19] MEDS ORDERED: levETIRAcetam 500 MG TAB ONE (20:57)
[2024-03-19] MEDS ORDERED: PREGABALIN 50 MG CAP ONE (20:58)
--- NOTE | 2024-03-19 21:00 | EDPHYS ---
Physician Documentation [facility] Name: Jenni Draper Age: 43 yrs Sex: Female : 1980 Arrival Date: 03/19/2024 Time: 18:11 Bed 26 Private MD: Caio Polanco HPI: 03/19 20:52 This 43 yrs old Female presents to ER via Wheelchair with complaints of taty Probable Seizure. 20:52 The patient presents with a history of multiple seizures, a total of 2. Character of taty seizure(s): Loss of consciousness: the patient experienced loss of consciousness, Motor activity: generalized, Incontinence: none, Apnea: the patient did not experience apnea, Circulation: the patient did not experience evidence of pulse disturbance. Seizure onset: just prior to arrival. Context: the seizure(s) was witnessed, by family. Seizure Hx: Cause: unknown, Last seizure: The patient's last seizure was approximately 1 day(s) ago. Associated injury: The patient did not suffer any apparent associated injury. Current symptoms: headache, that is mild. The patient has experienced similar episodes in the past, multiple times. Historical: - Allergies: 18:16 Adhesives; ll1 18:16 Aspirin; ll1 18:16 Bactrim; ll1 18:16 Benadryl; ll1 18:16 cefixime; ll1 18:16 Cipro IV; ll1 18:16 Clindamycin; ll1 18:16 coconut oil; ll1 18:16 Detrol; ll1 18:16 Diltiazem; ll1 18:16 Doxycycline; ll1 18:16 FISH PRODUCT DERIVATIVES; ll1 18:16 GABAPENTIN; ll1 18:16 Iodine; ll1 18:16 ivabradine; ll1 18:16 Latex; ll1 18:16 Morphine; ll1 18:16 PENICILLINS; ll1 18:16 Seroquel; ll1 18:16 Sulfa (Sulfonamide Antibiotics); ll1 18:16 tramadol; ll1 - PMHx: 18:16 Anxiety; Bipolar disorder; CVA; Atrial fibrillation; Seizure; COPD; ll1 - PSHx: 18:16 hysterectomy; pacemaker; ll1 - Immunization history:: Adult Immunizations up to date. - Infectious Disease History:: Denies. - Social history:: Smoking status: Patient denies any tobacco usage or history of. - Family history:: not pertinent. ROS: 20:52 Constitutional: Negative for fever, chills, and weight loss, Eyes: Negative for injury, taty pain, redness, and discharge, ENT: Negative for injury, pain, and discharge, Neck: Negative for injury, pain, and swelling, Cardiovascular: Negative for chest pain, palpitations, and edema, Respiratory: Negative for shortness of breath, cough, wheezing, and pleuritic chest pain, Abdomen/GI: Negative for abdominal pain, nausea, vomiting, diarrhea, and constipation, Back: Negative for injury and pain, : Negative for injury, bleeding, discharge, and swelling, MS/Extremity: Negative for injury and deformity, Skin: Negative for injury, rash, and discoloration, Psych: Negative for depression, anxiety, suicide ideation, homicidal ideation, and hallucinations, Allergy/Immunology: Negative for hives, rash, and allergies, Endocrine: Negative for neck swelling, polydipsia, polyuria, polyphagia, and marked weight changes, Hematologic/Lymphatic: Negative for swollen nodes, abnormal bleeding, and unusual bruising, 20:52 Neuro: Positive for altered mental status, postictal, Exam: 20:52 Constitutional: This is a well developed, well nourished patient who is awake, alert, taty and in no acute distress. Head/Face: Normocephalic, atraumatic. Eyes: Pupils equal round and reactive to light, extra-ocular motions intact. Lids and lashes normal. Conjunctiva and sclera are non-icteric and not injected. Cornea within normal limits. Periorbital areas with no swelling, redness, or edema. ENT: Nares patent. No nasal discharge, no septal abnormalities noted. Tympanic membranes are normal and external auditory canals are clear. Oropharynx with no redness, swelling, or masses, exudates, or evidence of obstruction, uvula midline. Mucous membranes moist. Neck: Trachea midline, no thyromegaly or masses palpated, and no cervical lymphadenopathy. Supple, full range of motion without nuchal rigidity, or vertebral point tenderness. No Meningismus. Chest/axilla: Normal chest wall appearance and motion. Nontender with no deformity. No lesions are appreciated. Cardiovascular: Regular rate and rhythm with a normal S1 and S2. No gallops, murmurs, or rubs. Normal PMI, no JVD. No pulse deficits. Respiratory: Lungs have equal breath sounds bilaterally, clear to auscultation and percussion. No rales, rhonchi or wheezes noted. No increased work of breathing, no retractions or nasal flaring. Abdomen/GI: Soft, non-tender, with normal bowel sounds. No distension or tympany. No guarding or rebound. No evidence of tenderness throughout. Back: No spinal tenderness. No costovertebral tenderness. Full range of motion. Female : Normal external genitalia. Skin: Warm, dry with normal turgor. Normal color with no rashes, no lesions, and no evidence of cellulitis. MS/ Extremity: Pulses equal, no cyanosis. Neurovascular intact. Full, normal range of motion. Neuro: Awake and alert, GCS 15, oriented to person, place, time, and situation. Cranial nerves II-XII grossly intact. Motor strength 5/5 in all extremities. Sensory grossly intact. Cerebellar exam normal. Normal gait. Psych: Awake, alert, with orientation to person, place and time. Behavior, mood, and affect are within normal limits. 20:52 ECG was reviewed by the Attending Physician. Vital Signs: 18:18 BP 136 / 80; Pulse 91; Resp 17; Temp 99(O); Pulse Ox 97% on R/A; Height 4 ft. 11 in. ; ll1 Pain 8/10; 18:59 BP 116 / 83; Pulse 90; Resp 16; Pulse Ox 99% ; ko1 19:40 BP 114 / 85; Pulse 90; Resp 17 S; Pulse Ox 96% on R/A; ha1 20:01 BP 112 / 77; Pulse 91; Resp 17 S; Pulse Ox 99% on R/A; ha1 21:13 BP 117 / 84; Pulse 93; Pulse Ox 98% on R/A; tm6 18:18 Pain Scale: Adult ll1 NIH Stroke Scale Scores: 21:23 NIHSS Score: 0 taty [place] Coma Score: 18:20 Eye Response: spontaneous(4). Motor Response: obeys commands(6). Verbal Response: ll1 confused(4). Total: 14. 21:23 Eye Response: spontaneous(4). Motor Response: obeys commands(6). Verbal Response: taty oriented(5). Total: 15. MDM: 18:27 Patient medically screened. taty 20:56 Differential diagnosis: cerebral vascular accident, cardiac arrhythmia, seizure, TIA. taty Data reviewed: vital signs, nurses notes, lab test result(s), EKG, radiologic studies, CT scan. Consideration of Admission/Observation Escalation of care including admission/observation considered. I considered the following discharge prescriptions or medication management in the emergency department Medications were administered in the Emergency Department. See MAR. Independent interpretation of the following test(s) in the Emergency Department EKG: See my EKG interpretation above. Test considered but Not performed: MRI: no mri brain. Historians other than the Patient: Spouse/Significant Other: well informed. Care significantly affected by the following chronic conditions: Chronic Obstructive Pulmonary Disease, anxiety , seizure, bipolar, cva seizure, copd. Counseling: I had a detailed discussion with the patient and/or guardian regarding the historical points, exam findings, and any diagnostic results supporting the discharge/admit diagnosis, lab results, radiology results, the need for outpatient follow up, for definitive care, a family practitioner, a neurologist. 21:24 ED course: pt co at 3pm left face numbness, no weakness. taty 21:24 ED course: on eliquis, seizure, not a tpa candidate. taty 03/19 18:29 Order name: Acetaminophen; Complete Time: 20:41 taty 03/19 18:29 Order name: Basic Metabolic Panel; Complete Time: 20:41 taty 03/19 18:29 Order name: CBC with Diff; Complete Time: 20:41 taty 03/19 18:29 Order name: ETOH Level; Complete Time: 20:41 taty 03/19 18:29 Order name: Hepatic Function; Complete Time: 20:41 taty 03/19 18:29 Order name: PT-INR; Complete Time: 20:41 taty 03/19 18:29 Order name: Test, Urine; Complete Time: 20:41 taty 03/19 18:29 Order name: Ptt, Activated; Complete Time: 20:41 taty 03/19 18:29 Order name: Salicylate taty 03/19 18:29 Order name: Urinalysis w/ reflexes; Complete Time: 20:41 taty 03/19 18:29 Order name: Urine Drug Screen; Complete Time: 20:41 taty 03/19 22:56 Order name: Urinalysis w/ reflexes [facility] 03/19 22:56 Order name: CBC with Automated Diff [facility]MS 03/19 22:56 Order name: CBC with Automated Diff [facility] 03/19 22:56 Order name: Comprehensive Metabolic Panel [facility] 03/19 22:56 Order name: Comprehensive Metabolic Panel [facility] 03/19 19:33 Order name: CT Head Brain wo Cont; Complete Time: 20:41 rv1 03/19 18:29 Order name: EKG; Complete Time: 18:29 [facility] [place] 03/19 22:56 Order name: CONS Physician Consult [facility] 03/19 18:29 Order name: EKG - Nurse/Tech; Complete Time: 19:37 [facility] [place] 03/19 18:29 Order name: IV Saline Lock; Complete Time: 19:37 [facility] 03/19 18:29 Order name: Labs collected and sent; Complete Time: 19:37 [facility] 03/19 18:29 Order name: Suicide Screening ([place]); Complete Time: 19:37 [facility] 03/19 18:29 Order name: Seizure Precautions; Complete Time: 19:49 [facility] EC:52 Rate is 89 beats/min. Rhythm is regular. QRS [place] is Normal. [place] interval is normal. QRS taty interval is normal. QT interval is normal. No Q waves. T waves are Normal. No ST changes noted. Clinical impression: NSR w/ Non-specific ST/T Changes and No evidence of ischemia. Interpreted by me. Reviewed by me. Administered Medications: 19:55 Drug: NS 0.9% IV 1000 ml IV at 1 bolus Per protocol; 1000 mL bolus Route: IV; Rate: 1 ha1 bolus; Site: right forearm; 21:02 Follow up: IV Status: Completed infusion; IV Intake: 1000ml 6 19:57 Drug: Ativan IVP 2 mg IVP once Route: IVP; Site: right forearm; ha1 20:20 Follow up: Response: No adverse reaction; Marked relief of symptoms ha1 19:59 Drug: Keppra IV 1000 mg IV at per protocol once Route: IV; Rate: per protocol; Site: [facility] right forearm; 20:15 Follow up: Response: No adverse reaction; IV Status: Completed infusion ha1 21:01 Drug: Pregabalin PO 50 mg PO once Route: PO; tm6 21:15 Follow up: Response: No adverse reaction ha1 21:01 Drug: Keppra PO 1000 mg PO once Route: PO; tm6 21:15 Follow up: Response: No adverse reaction ha1 Disposition Summary: 03/19/24 21:23 Hospitalization Ordered Notes: Hospitalization Status: Observation taty Provider: Jose Juan Dhillon taty Condition: Stable(03/19/24 21:23) taty Problem: new(03/19/24 21:23) taty Symptoms: have improved(03/19/24 21:23) taty Bed/Room Type: Standard taty Location: Telemetry/MedSurg (observation)(03/20/24 13:03) bd Room Assignment: 205(03/20/24 13:03) bd Diagnosis - Paresthesia of skin - left face , arm taty - Epileptic seizures related to external causes, not intractable, without status taty epilepticus(03/19/24 21:23) - roasterman (current) use of anticoagulants taty - Presence of cardiac pacemaker taty Forms: - Medication Reconciliation Form taty - SBAR form taty - Leadership Thank You Letter taty NIH Stroke Scale - NIH Stroke Score Date: 03/19/2024 Time: 21:23 Total Score = 0 10. Dysarthria (speech clarity - read or repeat words) - 0(Normal) 11. Extinction and Inattention (visual/tactile/auditory/spatial/personal) - 0(No abnormality) 1a. Level of Consciousness (LOC) - 0(Alert) 1b. Level of Consciousness (LOC) (Month \T\ Age) - 0(Both) 1c. LOC Commands (Open \T\ Closes Eyes/Wallpaper Scraper) - 0(Both) 2. Best Gaze (Lateral Gaze Paresis) - 0(Normal) 3. Visual Field Loss - 0(No visual loss) 4. Facial Palsy - 0(Normal) 5a. Left Arm: Motor (10-second hold) - 0(No drift) 5b. Right Arm: Motor (10-second hold) - 0(No drift) 6a. Left Leg: Motor (5-second hold - always test supine) - 0(No drift) 6b. Right Leg: Motor (5-second hold - always test supine) - 0(No drift) 7. Limb Ataxia (finger/nose \T\ heel/briggs - test with eyes open) - 0(Absent) 8. Sensory Loss (pinprick arms/legs/face) - 0(Normal) 9. Best Language: Aphasia (description/naming/reading) - 0(No aphasia) Initials: taty Signatures: Dispatcher [employer] EDMS Marily Patten Caio Roberts MD MD cha Bryson, James, RN RN jb4 Nicho Beckman RN RN ll1 Angie Odom, LAUREL RN ha1 Lake Nolan RN RN tm6 Corrections: (The following items were deleted from the chart) 18:20 18:20 Social history: Smoking status: Patient reports the use of cigarette ll1 tobacco products, smokes one-half pack cigarettes per day, ll1 18:29 18:29 ACETAMINOPHEN+C.LAB.BRZ ordered. EDMS EDMS 18:29 18:29 BASIC METABOLIC PANEL+C.LAB.BRZ ordered. EDMS EDMS 18:29 18:29 CBC+H.LAB.BRZ ordered. EDMS EDMS 18:29 18:29 ETHANOL+C.LAB.BRZ ordered. EDMS EDMS 18:29 18:29 HEPATIC FUNCTION+C.LAB.BRZ ordered. EDMS EDMS 18:29 18:29 PROTIME (+INR)+COAG.LAB.BRZ ordered. EDMS EDMS 18:29 18:29 Test, Urine+UC.LAB.BRZ ordered. EDMS EDMS 18:29 18:29 PTT, ACTIVATED+COAG.LAB.BRZ ordered. EDMS EDMS 18:29 18:29 SALICYLATE+C.LAB.BRZ ordered. EDMS EDMS 18:29 18:29 Urinalysis+U.LAB.BRZ ordered. EDMS EDMS 18:29 18:29 URINE DRUG SCREEN+UC.LAB.BRZ ordered. EDMS EDMS 21:22 20:59 Home taty taty 21:22 20:59 Stable taty taty 21:22 20:59 Epileptic seizures related to external causes, not intractable, without taty status epilepticus taty 21:22 21:00 an acute exacerbation taty taty 21:22 21:00 have improved taty taty 21:24 21:23 Telemetry/MedSurg (observation) taty jb4 : 21:23 taty jb4 03/20 13:03 03/19 21:24 [facility] ER HOLD jb4 bd 03/20 13:03 03/19 21:24 ERHOLD- jb4 bd
--- NOTE | 2024-03-19 21:00 | ER ---
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 ll1 Awoke when moving her into stretcher. Having trouble getting her words out, L side feels numb. CP also. Coronavirus screen: Client denies travel out of the [place] in the last 14 days. At this time, the client does not indicate any symptoms associated with coronavirus-19. Ebola Screen: Patient denies travel to an Ebola-affected area in the 21 days before illness onset. Initial Sepsis Screen: Does the patient meet any 2 criteria? No. Patient's initial sepsis screen is negative. Does the patient have a suspected source of infection? No. Patient's initial sepsis screen is negative. Risk Assessment: Do you want to hurt yourself or someone else? Patient reports no desire to harm self or others. Onset of symptoms was March 19, 2024. 18:18 Method Of Arrival: Wheelchair ll1 18:18 Acuity: LYUBOV 2 ll1 Triage Assessment: 18:20 General: Appears uncomfortable, Behavior is cooperative, appropriate for age, listless. 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 Pain: Complains of pain in chest Pain currently is 8 out of 10 on a pain scale. Quality of pain is described as aching. Neuro: Reports numbness weakness. Cardiovascular: Reports chest pain, fatigue, syncope. Historical: - Allergies: 18:16 Adhesives; ll1 18:16 Aspirin; ll1 18:16 Bactrim; ll1 18:16 Benadryl; ll1 18:16 cefixime; ll1 18:16 Cipro IV; ll1 18:16 Clindamycin; ll1 18:16 coconut oil; ll1 18:16 Detrol; ll1 18:16 Diltiazem; ll1 18:16 Doxycycline; ll1 18:16 FISH PRODUCT DERIVATIVES; ll1 18:16 GABAPENTIN; ll1 18:16 Iodine; ll1 18:16 ivabradine; ll1 18:16 Latex; ll1 18:16 Morphine; ll1 18:16 PENICILLINS; ll1 18:16 Seroquel; ll1 18:16 Sulfa (Sulfonamide Antibiotics); ll1 18:16 tramadol; ll1 - PMHx: 18:16 Anxiety; Bipolar disorder; CVA; Atrial fibrillation; Seizure; COPD; ll1 - PSHx: 18:16 hysterectomy; pacemaker; ll1 - Immunization history:: Adult Immunizations up to date. - Infectious Disease History:: Denies. - Social history:: Smoking status: Patient denies any tobacco usage or history of. - Family history:: not pertinent. Screenin:51 [facility] ED Fall Risk Assessment (Adult) History of falling in the last 3 months, ha1 including since admission Yes- single mechanical fall (1 pt) Confusion or Disorientation No (0 pts) Intoxicated or Sedated No (0 pts) Impaired Gait Yes (1 pt) Mobility Assist Device Used Yes (1 pt) Altered Elimination No (0 pt) Score/Fall Risk Level 3 or more points = High Risk Oriented to surroundings, Maintained a safe environment, Educated pt \T\ family on fall prevention, incl call for assistance when getting out of bed, Hourly rounding (assess needs \T\ fall precautionary measures) done. Abuse screen: Denies threats or abuse. Denies injuries from another. Nutritional screening: No deficits noted. Tuberculosis screening: No symptoms or risk factors identified. Assessment: 19:25 General: Appears comfortable, Behavior is calm, cooperative. Pain: Denies pain. Neuro: ha1 Level of Consciousness is awake, alert, obeys commands, Oriented to person, place, time, situation. Cardiovascular: Capillary refill < 3 seconds Patient's skin is warm and dry. Respiratory: Airway is patent Respiratory effort is even, unlabored, Respiratory pattern is regular, symmetrical. GI: No signs and/or symptoms were reported involving the gastrointestinal system. : No signs and/or symptoms were reported regarding the genitourinary system. Derm: Skin is pink, warm \T\ dry. 19:35 Reassessment: going to CT. ha1 20:01 Reassessment: Patient is alert, oriented x 3, equal unlabored respirations, skin ha1 warm/dry/pink. back from CT. Vital Signs: 18:18 BP 136 / 80; Pulse 91; Resp 17; Temp 99(O); Pulse Ox 97% on R/A; Height 4 ft. 11 in. ; ll1 Pain 8/10; 18:59 BP 116 / 83; Pulse 90; Resp 16; Pulse Ox 99% ; ko1 19:40 BP 114 / 85; Pulse 90; Resp 17 S; Pulse Ox 96% on R/A; ha1 20:01 BP 112 / 77; Pulse 91; Resp 17 S; Pulse Ox 99% on R/A; ha1 21:13 BP 117 / 84; Pulse 93; Pulse Ox 98% on R/A; tm6 18:18 Pain Scale: Adult ll1 Kv[place] Coma Score: 18:20 Eye Response: spontaneous(4). Motor Response: obeys commands(6). Verbal Response: ll1 confused(4). Total: 14. 21:23 Eye Response: spontaneous(4). Motor Response: obeys commands(6). Verbal Response: taty oriented(5). Total: 15. NIH Stroke Scale Scores: 21:23 NIHSS Score: 0 taty ED Course: 18:13 Patient arrived in ED. ra3 18:19 Triage completed. ll1 18:22 Arm band placed on Patient placed in an exam room, on a stretcher. ll1 18:27 Caio Aceves MD is Attending Physician. taty 19:00 Patient has correct armband on for positive identification. Fall risk band placed. ha1 Placed in gown. Bed in low position. Call light in reach. Side rails up X 1. Adult w/ patient. Seizure precautions initiated. 19:10 Lake Nolan, RN is Primary Nurse. tm6 19:25 Inserted saline lock: 22 gauge in right forearm, using aseptic technique. Blood ha1 collected. 19:37 Acetaminophen Sent. ha1 19:37 Basic Metabolic Panel Sent. ha1 19:37 CBC with Diff Sent. ha1 19:37 ETOH Level Sent. ha1 19:38 Hepatic Function Sent. ha1 19:38 PT-INR Sent. ha1 19:38 Ptt, Activated Sent. ha1 19:38 Salicylate Sent. ha1 19:42 EKG done, by ED staff, reviewed by Caio Aceves MD. tm6 19:49 CT Head Brain wo Cont In Process Unspecified. EDMS 20:07 Test, Urine Sent. tm6 20:07 Urinalysis w/ reflexes Sent. tm6 20:07 Urine Drug Screen Sent. tm6 20:59 Nacho Ash MD is Referral Physician. taty 21:22 Jose Juan Dhillon MD is Hospitalizing Provider. taty 21:58 No provider procedures requiring assistance completed. Patient admitted, IV remains in tm6 place. 21:59 Provided Education on: need for admit. Client placed on continuous cardiac and pulse tm6 oximetry monitoring. NIBP monitoring applied. director professional services on. Pulse ox on. NIBP on. Door closed. Noise minimized. Warm blanket given. Administered Medications: 19:55 Drug: NS 0.9% IV 1000 ml IV at 1 bolus Per protocol; 1000 mL bolus Route: IV; Rate: 1 ha1 bolus; Site: right [facility]; 21:02 Follow up: IV Status: Completed infusion; IV Intake: 1000ml tm6 19:57 Drug: Ativan IVP 2 mg IVP once Route: IVP; Site: right forearm; ha1 20:20 Follow up: Response: No adverse reaction; Marked relief of symptoms ha1 19:59 Drug: Keppra IV 1000 mg IV at per protocol once Route: IV; Rate: per protocol; Site: [facility] right [facility]; 20:15 Follow up: Response: No adverse reaction; IV Status: Completed infusion ha1 21:01 Drug: Pregabalin PO 50 mg PO once Route: PO; tm6 21:15 Follow up: Response: No adverse reaction ha1 21:01 Drug: Keppra PO 1000 mg PO once Route: PO; tm6 21:15 Follow up: Response: No adverse reaction ha1 Medication: 19:52 VIS not applicable for this client. ha1 Intake: 21:02 IV: 1000ml; Total: 1000ml. tm6 Outcome: 20:59 Discharge ordered by . taty 21:23 Decision to Hospitalize by Provider. taty 21:59 Admitted to ER Hold. Please see [facility] for further documentation. tm6 21:59 Condition: stable 21:59 Instructed on the need for admit, 03/20 14:16 Patient left the ED. ld1 NIH Stroke Scale - NIH Stroke Score Date: 03/19/2024 Time: 21: Total Score = 0 10. Dysarthria (speech clarity - read or repeat words) - 0(Normal) 11. Extinction and Inattention (visual/tactile/auditory/spatial/personal) - 0(No abnormality) 1a. Level of Consciousness (LOC) - 0(Alert) 1b. Level of Consciousness (LOC) (Month \T\ Age) - 0(Both) 1c. LOC Commands (Open \T\ Closes Eyes/Barrel Rifler) - 0(Both) 2. Best Gaze (Lateral Gaze Paresis) - 0(Normal) 3. Visual Field Loss - 0(No visual loss) 4. Facial Palsy - 0(Normal) 5a. Left Arm: Motor (10-second hold) - 0(No drift) 5b. Right Arm: Motor (10-second hold) - 0(No drift) 6a. Left Leg: Motor (5-second hold - always test supine) - 0(No drift) 6b. Right Leg: Motor (5-second hold - always test supine) - 0(No drift) 7. Limb Ataxia (finger/nose \T\ heel/briggs - test with eyes open) - 0(Absent) 8. Sensory Loss (pinprick arms/legs/face) - 0(Normal) 9. Best Language: Aphasia (description/naming/reading) - 0(No aphasia) Initials: [facility] Signatures: Dispatcher [employer] EDCaio Zhong MD MD cha Lewis, Lynsay, RN RN ll1 Kati Romeo RN RN ld1 Angie Odom RN RN ha1 Asuncion Olivo RN RN ko1 Lake Nloan RN RN 6 Florencia Claros ra3 Corrections: (The following items were deleted from the chart) 03/19 18:20 18:20 Social history: Smoking status: Patient reports the use of cigarette ll1 tobacco products, smokes one-half pack cigarettes per day, ll1
--- NOTE | 2024-03-19 22:49 | P.HP ---
Certification for Inpatient Patient admitted to: Inpatient With expected LOS: >2 Midnights Practitioner: I am a practitioner with admitting privileges, knowledge of patient current condition, hospital course, and medical plan of care. Services: Services provided to patient in accordance with Admission requirements found in Title 42 Section 412.3 of the Code of Federal Regulations Patient History Date of Service: 03/19/24 Reason for admission: Seizure episodes History of Present Illness: 43 yrs old Female with past medical history of atrial fibrillation, status post pacemaker placement seizure disorder, COPD, CVA, bipolar disorder, anxiety presents with seizure episodes. Patient is still postictal hence most of the history is obtained from the chart review and also talking with the ER physician and the family member at the bedside. She had a multiple seizure episodes today and had multiple seizures recently yesterday and day before. Denies any fever or chills no sick contacts. Patient also complains of numbness on the left side of the body. Patient was assessed in the ER and is admitted for further management Allergies adhesive Allergy (Severe, Verified 04/13/22 21:24) Unknown aspirin Allergy (Severe, Verified 04/13/22 21:24) Anaphylaxis ciprofloxacin [From Cipro] Allergy (Severe, Verified 04/13/22 21:24) Hives/Rash gabapentin Allergy (Severe, Verified 04/13/22 21:24) Unknown iodine Allergy (Severe, Verified 04/13/22 21:24) Unknown Latex, Natural Rubber Allergy (Severe, Verified 04/13/22 21:24) Unknown Penicillins Allergy (Severe, Verified 04/13/22 21:24) Anaphylaxis quetiapine [From Seroquel] Allergy (Severe, Verified 04/13/22 21:24) Hives/Rash quetiapine fumarate [From Seroquel] Allergy (Severe, Verified 04/13/22 21:24) Hives/Rash Sulfa (Sulfonamide Antibiotics) Allergy (Severe, Verified 04/13/22 21:24) Anaphylaxis sulfamethoxazole [From Bactrim] Allergy (Severe, Verified 04/13/22 21:24) Hives/Rash tolterodine [From Detrol] Allergy (Severe, Verified 04/13/22 21:24) Hives/Rash tolterodine tartrate [From Detrol] Allergy (Severe, Verified 04/13/22 21:24) Anaphylaxis tramadol Allergy (Severe, Verified 04/13/22 21:24) Anaphylaxis trimethoprim [From Bactrim] Allergy (Severe, Verified 04/13/22 21:24) Hives latex Allergy (Intermediate, Verified 04/13/22 21:24) Rash coconut Allergy (Verified 04/13/22 21:24) Rash meperidine [From Demerol] Allergy (Verified 04/13/22 21:24) Unknown morphine Allergy (Verified 04/13/22 21:24) Anaphylaxis bee venom protein (honey bee) Adverse Reaction (Severe, Verified 04/13/22 21:24) Anaphylaxis Fish Containing Products Adverse Reaction (Verified 04/13/22 21:24) Anaphylaxis Clindamycin Allergy (Severe, Uncoded 04/13/22 21:24) Hives/Rash Home Medications: Albuterol Sulfate [Proair Hfa] 8.5 gm IH PRN PRN 06/23/15 Tiotropium [Spiriva Handihaler*] 18 mcg IH DAILY 06/23/15 ALPRAZolam [Xanax*] 0.25 mg PO TIDP PRN 08/19/20 ARIPiprazole [Abilify*] 5 mg PO DAILY 08/19/20 ARIPiprazole [Abilify*] 10 mg PO BEDTIME 08/19/20 Albuterol Neb [Proventil 0.083% Neb Soln] 1 dose IH BID 08/19/20 Apixaban [Eliquis] 5 mg PO BID 08/19/20 Benzonatate [Tessalon Perle*] 100 mg PO TID 08/19/20 Buspirone HCl [Buspar] 15 mg PO BID 08/19/20 Cholecalciferol (Vitamin D3) [Vitamin D 1000 Iu Tab*] 2 tab PO EVERY 7TH DAY 08/19/20 Cyanocobalamin (Vitamin B-12) [Vitamin B-12] 1 cap PO DAILY 08/19/20 Digoxin 125 mcg PO DAILY 08/19/20 Esomeprazole Mag Trihydrate [Nexium] 20 mg PO BID 08/19/20 Fluticasone/Vilanterol [Breo Ellipta 200-25 Mcg Inhalr] 1 dose IH DAILY 08/19/20 Loratadine [Claritin*] 10 mg PO DAILY PRN 08/19/20 Pregabalin [Lyrica*] 50 mg PO BEDTIME 08/19/20 Venlafaxine HCl [Effexor Xr] 75 mg PO DAILY 08/19/20 Venlafaxine HCl [Effexor Xr] 150 mg PO BEDTIME 08/19/20 carBAMazepine [Tegretol Xr] 200 mg PO BEDTIME 08/19/20 carvediloL [Coreg*] 25 mg PO BID 08/19/20 levETIRAcetam [Keppra*] 1,000 mg PO BID 08/19/20 predniSONE [Deltasone*] 10 mg PO DAILYPRN PRN 08/19/20 - Past Medical/Surgical History Diabetic: No Past Medical History: Reviewed- Non-Contributory -: Sick sinus syndrome with pacemaker placement -: Atrial fibrillation on chronic anticoagulation therapy -: COPD -: Seizure disorder -: Anxiety/depression/bipolar -: GERD -: sleep apnea -: migraines -: neuropathy Past Surgical History: Reviewed- Non-Contributory -: left shoulder -: right hand -: hysterectomy -: pacemaker Psychosocial/ Personal History: Patient is unemployed on disability and lives with her - Family History Family History: Reviewed- Non-Contributory - Family History Father -: Heart disease, Hypertension, Lung disease, GI disease, Diabetes, Stroke Mother -: Heart disease, Hypertension Brother -: Other (see notes) Notes: migraines - Social History Smoking Status: Never smoker Alcohol use: No CD- Drugs: No Caffeine use: Yes Review of Systems 10-point ROS is otherwise unremarkable Physical Examination - Vital Signs Temperature: 97.8 F Blood Pressure: 122/76 Pulse: 74 Respirations: 18 Pulse Ox (%): 94 - Physical Exam General: Alert, Cooperative, Mild distress HEENT: Atraumatic, Normocephalic Neck: Supple, 2+ carotid pulse no bruit Respiratory: Clear to auscultation bilaterally, Normal air movement Cardiovascular: Normal pulses, Regular rate/rhythm, Normal S1 S2 Capillary refill: <2 Seconds Gastrointestinal: Soft and benign, W/out hepatosplenomegaly Musculoskeletal: No clubbing Integumentary: No rashes, No breakdown Neurological: Normal strength at 5/5 x4 extr, Cranial nerves 3-12 intact Lymphatics: No axilla or inguinal lymphadenopathy - Studies Laboratory Data (last 24 hrs) 03/19/24 03/19/24 03/19/24 19:32 19:32 19:32 WBC 5.40 Hgb 12.1 D Hct 36.1 Plt Count 246 PT 12.1 INR 1.10 APTT 34.0 Sodium 140 Potassium 3.9 BUN 9 Creatinine 0.70 Glucose 101 Total Bilirubin 0.3 AST 19 ALT 29 Alkaline Phosphatase 97 Assessment and Plan - Problems (Diagnosis) (1) Breakthrough seizure Current Visit: Yes Status: Acute Plan: Breakthrough seizure episodes Patient has a history of seizure disorder Continue Keppra Continue home medications CT findings noted Will get neurology evaluation History of sick sinus syndrome status post pacemaker placement Monitor closely telemetry CVA/TIA No focal weakness Numbness of left-sided body Started on aspirin and statin CT CTA findings noted MRI brain could not be done because of the pacemaker Atrial fibrillation Monitor closely on telemetry Rate controlled. Hypertension Antihypertensives titrated Continue home medications and titrate as needed GI/DVT prophylaxis Advanced directive full code Discharge Plan: Home Plan to discharge in: 48 Hours - Advance Directives Does patient have a Living Will: No Does patient have a Durable POA for Healthcare: No - Code Status/Comfort Care Code Status: Full Code Time Spent Managing Pts Care (In Minutes): 48
[2024-03-19] MEDS ORDERED: ACETAMINOPHEN 325 MG TABLET PO PRN (22:52)
[2024-03-19] MEDS ORDERED: ONDANSETRON 4 MG/2 ML VIAL IV PRN (22:52)
[2024-03-19] MEDS ORDERED: ALBUTEROL 2.5 MG/3 ML NEB SOL NEB PRN (22:52)
[2024-03-19] MEDS: NA CHLORIDE 0.9% 1,000 ML IV SCH (23:00)
[2024-03-19 23:47] VITALS: BMI 29.5
[2024-03-20 06:14] LABS: Absolute Eosinophils 0.2 K/uL (0-0.5); Absolute Monocytes 0.4 K/uL (0.1-1.3); Absolute Neutrophil 2.5 K/uL (1.8-8.0); Basophils % 0.8 % (0-1.3); Eosinophils % 3.5 % (0-4.4); Hematocrit 38.2 % (36.0-45.0); Hemoglobin 12.7 g/dL (12.0-15.0); Lymphocytes % 38.8 % (15.3-44.8); MCHC 33.3 g/dL (32.0-36.0); MCV 87.2 fL (80-100); MPV 8.1 fL (7.6-11.3); Monocytes % 8.2 % (3.3-12.3); Neutrophils % 48.7 % (41.7-73.7); Nucleated Red Blood Cells % 0.1 % (0-0); Platelets 214 thou/uL (152-406); RBC Red Blood Cell Count 4.39 M/uL (3.86-4.86); Red Cell Distribution Width 13.1 % (12.1-15.2)
[2024-03-20 06:25] LABS: Albumin 3.3 g/dL (3.4-5.0); Albumin/Globulin Ratio 1.1 (1.1-1.8); Anion Gap 7.7 mEq/L (5.0-15.0); Bilirubin Total 0.2 mg/dL (0.2-1.0); Globulin 3.1 g/dL (2.3-3.5); Potassium 3.7 mEq/L (3.5-5.1); Protein, Total 6.4 g/dL (6.4-8.2)
--- NOTE | 2024-03-20 06:47 | P.PN ---
Date of Service: 03/20/24 presented with seizure, no reported seizure overnight Review of Systems 10-point ROS is otherwise unremarkable Physical Examination - Vital Signs Temperature: 97.8 F Blood Pressure: 122/76 Pulse: 74 Respirations: 18 Pulse Ox (%): 94 - Physical Exam General: Alert, Cooperative, Mild distress HEENT: Atraumatic, Normocephalic Neck: Supple, 2+ carotid pulse no bruit Respiratory: Clear to auscultation bilaterally, Normal air movement Cardiovascular: Normal pulses, Regular rate/rhythm, Normal S1 S2 Capillary refill: <2 Seconds Gastrointestinal: Soft and benign, W/out hepatosplenomegaly Musculoskeletal: No clubbing Integumentary: No rashes, No breakdown Neurological: Normal strength at 5/5 x4 extr, Cranial nerves 3-12 intact Lymphatics: No axilla or inguinal lymphadenopathy Assessment and Plan - Problems (Diagnosis) Breakthrough seizure episodes Patient has a history of seizure disorder Continue Keppra Continue home medications CT findings noted Will get neurology evaluation History of sick sinus syndrome status post pacemaker placement Monitor closely telemetry CVA/TIA No focal weakness Numbness of left-sided body Started on aspirin and statin CT CTA findings noted MRI brain could not be done because of the pacemaker Atrial fibrillation Monitor closely on telemetry Rate controlled. Hypertension Antihypertensives titrated Continue home medications and titrate as needed GI/DVT prophylaxis Advanced directive full code
[2024-03-20] MEDS: POTASSIUM CL SA 10 MEQ TAB PO ONE (07:30)
[2024-03-20] MEDS ORDERED: LORazepam 2 MG/ML VIAL ONE ×2 (08:18→12:18)
[2024-03-20] MEDS ORDERED: POTASSIUM CL SA 10 MEQ TAB PO ONE (08:19)
[2024-03-20] MEDS ORDERED: ENOXAPARIN 40 MG/0.4 ML SQ ONE (08:19)
[2024-03-20] MEDS: ENOXAPARIN 40 MG/0.4 ML SQ SCH (08:23)
[2024-03-20] MEDS: LORazepam 2 MG/ML VIAL IV PRN (08:24)
[2024-03-20] MEDS: levETIRAcetam 1,500 MG in NA CHLORIDE 0.9% 100 ML IV SCH (09:00)
--- NOTE | 2024-03-20 13:49 | EKG ---
Test Date: 2024-03-19 Test Time: 19:29:15 Senior System Operator: LAINA MEASUREMENT RESULTS: Intervals: Rate: 89 AL: 150 QRSD: 92 QT: 352 QTc: 428 [place]: P: -3 AL: 150 QRS: 30 T: 5 INTERPRETIVE STATEMENTS: Normal sinus rhythm Low voltage QRS Incomplete right bundle branch block Septal infarct, age undetermined Abnormal ECG Compared to ECG 03/18/2024 19:46:08 Low QRS voltage now present Incomplete right bundle-branch block now present Myocardial infarct finding now present Electronically Signed On 03-20-24 13:47:50 CDT by Judson Payne
[2024-03-20 14:35] VITALS: BP 117/84; TEMP 99; O2SAT 98
[2024-03-20] MEDS ORDERED: PNEUMOCOCCAL VACCINE 0.5 ML IMVAC ONE (18:00)
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
== END 2024-03-20 15:30 | disposition left against medical advice (07) | DRG 101 ==
LOC: ER 18:11 → ERHOLD 22:52 → 2ND 03-20 14:06
PROVIDERS: ADMIT Family Medicine; ATTEND Internal Medicine
DX: G40.509 Epileptic seizures related to external causes, not intractable, without status epilepticus (principal); I48.91 Unspecified atrial fibrillation; I49.5 Sick sinus syndrome; K21.9 Gastro-esophageal reflux disease without esophagitis; J44.9 Chronic obstructive pulmonary disease, unspecified; R20.2 Paresthesia of skin; Z88.6 Allergy status to analgesic agent; Z88.0 Allergy status to penicillin; Z88.1 Allergy status to other antibiotic agents; Z88.5 Allergy status to narcotic agent; Z56.0 Unemployment, unspecified; Z88.8 Allergy status to other drugs, medicaments and biological substances; Z95.0 Presence of cardiac pacemaker; Z79.01 Long term (current) use of anticoagulants; Z79.52 Long term (current) use of systemic steroids; Z91.09 Other allergy status, other than to drugs and biological substances; Z53.29 Procedure and treatment not carried out because of patient's decision for other reasons; Z86.73 Personal history of transient ischemic attack (TIA), and cerebral infarction without residual deficits; Z91.040 Latex allergy status; Z79.899 Other long term (current) drug therapy; Z90.710 Acquired absence of both cervix and uterus
CPT/HCPCS: 36415; 70450; 80048; 80053; 80076; 80143; 80179; 80307; 81001; 81025; 82077; 85025; 85610; 85730; 93005; 96361; 96365; 96375; 99285; J1650; J1953; J7030

== ENCOUNTER 2024-05-06 22:36 | Emergency (ER) | payer OTHER ==
[2024-05-07] MEDS ORDERED: HYDROCODONE/APAP 10/325 TAB ONE (03:10)
[2024-05-07] MEDS ORDERED: NA CHLORIDE 0.9% 100 ML ONE (03:10)
[2024-05-07] MEDS ORDERED: LEVETIRACETAM 500 MG/5 ML VIAL IV ONE (03:10)
[2024-05-07 03:38] LABS: Absolute Eosinophils 0.2 K/uL (0-0.5); Absolute Lymphocytes (CBC) 2.2 K/uL (0.7-4.9); Absolute Monocytes 0.5 K/uL (0.1-1.3); Absolute Neutrophil 2.6 K/uL (1.8-8.0); Basophils % 0.6 % (0-1.3); Eosinophils % 3.5 % (0-4.4); Hematocrit 37.5 % (36.0-45.0); Hemoglobin 12.7 g/dL (12.0-15.0); Lymphocytes % 39.8 % (15.3-44.8); MCH 29.1 pg (27.0-35.0); MCV 85.8 fL (80-100); MPV 8.6 fL (7.6-11.3); Monocytes % 8.7 % (3.3-12.3); Neutrophils % 47.4 % (41.7-73.7); Nucleated Red Blood Cells % 0.1 % (0-0); Platelets 233 thou/uL (152-406); RBC Red Blood Cell Count 4.37 M/uL (3.86-4.86); Red Cell Distribution Width 13.2 % (12.1-15.2)
[2024-05-07 03:55] LABS: Albumin 3.6 g/dL (3.4-5.0); Anion Gap 9.5 mEq/L (5.0-15.0); Bilirubin Total 0.3 mg/dL (0.2-1.0); Globulin 3.6 g/dL (2.3-3.5); Potassium 3.5 mEq/L (3.5-5.1); Protein, Total 7.2 g/dL (6.4-8.2)
--- NOTE | 2024-05-07 04:55 | EDPHYS ---
Physician Documentation [facility] Name: Jenni Draper Age: 43 yrs Sex: Female : 1980 Arrival Date: 05/06/2024 Time: 22:36 Bed 10 Private MD: ED Physician Deni Kirk HPI: 05/06 22:50 This 43 yrs old Female presents to ER via Unassigned with complaints of sp4 Seizure, Headache, Arm Pain. 05/07 22:34 43-year-old female complaining of seizure at home, breakthrough seizure with acute sp4 fall, headache and neck pain also right knee and hip pain.. Historical: - Allergies: 00:43 Adhesives; kl 00:43 Aspirin; kl 00:43 Bactrim; kl 00:43 Benadryl; kl 00:43 cefixime; kl 00:43 Cipro IV; kl 00:43 Clindamycin; kl 00:43 coconut oil; kl 00:43 Detrol; kl 00:43 Diltiazem; kl 00:43 Doxycycline; kl 00:43 FISH PRODUCT DERIVATIVES; kl 00:43 GABAPENTIN; kl 00:43 Iodine; kl 00:43 ivabradine; kl 00:43 Latex; kl 00:43 Morphine; kl 00:43 PENICILLINS; kl 00:43 Seroquel; kl 00:43 Sulfa (Sulfonamide Antibiotics); kl 00:43 tramadol; kl - Home Meds: 00:43 apixaban 5 mg Oral tab 1 tab 2 times per day [Active]; albuterol sulfate 2.5 mg /3 mL kl (0.083 %) Inhl nebu 3 mL 3 times per day [Active]; Breo Ellipta inhalation [Active]; BuSpar Oral [Active]; carvedilol 25 mg Oral tab 1 tab 2 times per day [Active]; Crestor 5 mg Oral tab 1 tab once daily [Active]; digoxin 125 mcg (0.125 mg) Oral tab 1 tab once daily [Active]; duloxetine 30 mg Oral CDRS 1 cap once daily [Active]; Keppra 750 mg Oral tab 1 tab [Active]; Lasix 20 mg Oral tab 1 tab [Active]; pantoprazole 20 mg Oral TbEC 1 tab once daily [Active]; Restasis 0.05 % ophthalmic (eye) dpet 1 drop every 12 hours [Active]; Spiriva with HandiHaler inhalation [Active]; Vraylar 4.5 mg Oral cap once daily [Active]; Xanax 0.25 mg Oral tab 1 tab [Active]; Nayzilam 5 mg/spray (0.1 mL) intranasal spray, non-aerosol 1 spray for acute repetitive seizures [Active]; - PMHx: 00:43 Anxiety; Atrial fibrillation; Bipolar disorder; COPD; CVA; Seizure; kl - PSHx: 00:43 hysterectomy; pacemaker; kl - Immunization history:: Adult Immunizations not immunized. - Infectious Disease History:: Denies. - Social history:: Smoking status: unknown. - Family history:: not pertinent. ROS: 22:34 Constitutional: Negative for fever, chills, and weight loss, positive for breakthrough sp4 seizure, positive for right knee pain, positive for right hip pain, positive for fall at home, positive for headache, positive for neck pain. 22:34 All other systems are negative, Exam: 22:34 Constitutional: This is a well developed, well nourished patient who is awake, alert, sp4 and in no acute distress. Head/Face: Normocephalic, atraumatic. Eyes: Pupils equal round and reactive to light, extra-ocular motions intact. Lids and lashes normal. Conjunctiva and sclera are not injected. Cornea within normal limits. Periorbital areas with no swelling, redness, or edema. ENT: Nares patent. No nasal discharge, no septal abnormalities noted. Tympanic membranes are normal and external auditory canals are clear. Oropharynx with no redness, swelling, or masses, exudates, or evidence of obstruction, uvula midline. Mucous membranes moist. Neck: Trachea midline, no thyromegaly or masses palpated, and no cervical lymphadenopathy. Supple, full range of motion without nuchal rigidity, or vertebral point tenderness. Chest/axilla: Normal chest wall appearance and motion. Nontender with no deformity. No lesions are appreciated. Cardiovascular: Regular rate and rhythm with a normal S1 and S2. No gallops, murmurs, or rubs. Normal PMI, no JVD. No pulse deficits. Respiratory: Lungs have equal breath sounds bilaterally, clear to auscultation and percussion. No rales, rhonchi or wheezes noted. No increased work of breathing, no retractions or nasal flaring. Abdomen/GI: Soft, with normal bowel sounds. No distension or tympany. No guarding or rebound. No evidence of tenderness throughout. Back: No spinal tenderness. No costovertebral tenderness. Skin: Warm, dry with normal turgor. Normal color with no rashes, no lesions, and no evidence of cellulitis. MS/ Extremity: Pulses equal, no cyanosis. Neurovascular intact. Full, normal range of motion. Neuro: Awake and alert, GCS 15, oriented to person, place, time, and situation. Cranial nerves II-XII grossly intact. Motor strength 5/5 in all extremities. Sensory grossly intact. Psych: Awake, alert, with orientation to person, place and time. Behavior, mood, and affect are within normal limits Vital Signs: 00:40 BP 103 / 73; Pulse 88; Resp 18; Temp 98(O); Pulse Ox 99% on R/A; Weight 54.43 kg (M); kl Pain 8/10; 00:40 Pain Scale: Adult kl [place] Coma Score: 00:45 Eye Response: spontaneous(4). Motor Response: obeys commands(6). Verbal Response: kl oriented(5). Total: 15. 22:34 Eye Response: spontaneous(4). Motor Response: obeys commands(6). Verbal Response: sp4 oriented(5). Total: 15. MDM: 05/06 23:00 Patient medically screened. sp4 05/07 04:49 ED course: EXAM DESCRIPTION: Femur Right CLINICAL HISTORY: right hip pain TECHNIQUE: 4 sp4 views of the right femur are submitted. COMPARISON: None available for comparison FINDINGS: Bones: No acute fracture or dislocation. Joints: Joint spaces are unremarkable. Soft tissues: No radiopaque foreign bodies. IMPRESSION: Normal radiographic appearance of the right femur. . ED course: TECHNIQUE: Contiguous axial CT images obtained through the brain without IV contrast. Coronal and sagittal reformatted images were provided. This exam was performed according to our departmental dose-optimization program, which includes automated exposure control, adjustment of the mA and/or kV according to patient size and/or use of iterative reconstruction technique. COMPARISON: None available for comparison FINDINGS: Brain: No focal mass effect. Pineda-white matter differentiation is within normal limits. No hemorrhage. Ventricles: No ventriculomegaly or midline shift. Extra-axial spaces: No extra-axial collection or hemorrhage. Paranasal sinuses and mastoid air cells: Well-aerated Bones: Unremarkable Soft tissues: Unremarkable IMPRESSION: No evidence of acute intracranial injury. PROCEDURE: Head C Spine Mpr Wo Con CLINICAL HISTORY: fall head injury TECHNIQUE: Contiguous axial CT images obtained through the cervical spine without IV contrast. Coronal and sagittal reformatted images also provided. This exam was performed according to our departmental dose-optimization program, which includes automated exposure control, adjustment of the mA and/or kV according to patient size and/or use of iterative reconstruction technique. COMPARISON: None available for comparison FINDINGS: Vertebra: No acute fracture or subluxation. Degenerative changes: Intervertebral disc spaces are fairly well maintained. No critical canal stenosis. Foramina appear patent. Prevertebral soft tissues: Unremarkable Lung apices: Clear IMPRESSION: No acute cervical spine injury. . ED course: CLINICAL HISTORY: fall , hip pain right COMPARISON: None. TECHNIQUE: XR PELVIS 1-2 VIEWS 05/06/2024 11:25 PM CDT FINDINGS: There is no fracture. Joint spaces are preserved. Soft tissues are unremarkable. IMPRESSION: No acute osseous findings.. ED course: CLINICAL HISTORY: Right knee pain. COMPARISON: None. TECHNIQUE: XR KNEE 3 VIEWS RIGHT 05/06/2024 11:25 PM CDT FINDINGS: There is no fracture. Joint spaces are preserved. Soft tissues are unremarkable. IMPRESSION: No acute osseous findings. . 22:34 Differential diagnosis: drug overdose, cardiac arrhythmia, seizure, TIA. Data reviewed: sp4 vital signs, nurses notes, lab test result(s), radiologic studies, CT scan, plain films. ED course: X-rays and CT images unremarkable. Patient stable for discharge home.. 05/06 23:24 Order name: CBC with Diff; Complete Time: 04:48 sp4 05/06 23:24 Order name: CMP; Complete Time: 04:48 sp4 05/06 23:24 Order name: CT Head C Spine sp4 05/06 23:25 Order name: Pelvis XRAY sp4 05/06 23:25 Order name: Knee Right 3 View XRAY sp4 05/06 23:26 Order name: Femur Right XRAY sp4 05/06 23:24 Order name: IV Saline Lock; Complete Time: 03:06 sp4 05/06 23:24 Order name: Labs collected and sent; Complete Time: 03:06 sp4 Administered Medications: 03:29 Drug: Crestline PO 10 mg-325 mg 1 tabs PO once Route: PO; jb4 05:28 Follow up: Response: No adverse reaction; Marked relief of symptoms jb4 03:30 Drug: Keppra IV 1000 mg IV at bolus once Route: IV; Rate: bolus; Site: right forearm; jb4 03:45 Follow up: Response: No adverse reaction; Marked relief of symptoms; IV Status: jb4 Completed infusion; IV Intake: 100ml Disposition: 05/08 00:31 Chart complete. sp4 Disposition Summary: 05/07/24 04:53 Discharge Ordered Notes: Location: Home sp4 Problem: new sp4 Symptoms: have improved sp4 Condition: Stable sp4 Diagnosis - Other seizures sp4 - Breakthrough seizure, fall at home, acute head and neck injury, acute right knee sp4 contusion, acute pelvic pain. Followup: sp4 - With: Private Physician - When: 7 - 10 days - Reason: Recheck today's complaints Discharge Instructions: - Discharge Summary Sheet sp4 - Seizure, Adult sp4 Forms: - Patient Portal Instructions sp4 Prescriptions: - acetaminophen-codeine 300-60 mg Oral tablet - take 1 tablet ORAL route every 8 hours PRN pain; 20 tablet; Refills: 0, Product sp4 Selection Permitted - Ibuprofen 800 mg Oral Tablet - take 1 tablet ORAL route every 8 hours As needed take with food; 30 tablet; sp4 Refills: 0, Product Selection Permitted Signatures: Dispatcher [employer] Marcela Weinberg RN RN kl Bryson, James, RN RN jb4 Deni Kirk MD MD sp4
--- NOTE | 2024-05-07 04:55 | ER ---
Nurse's Notes [facility] – [place], [place] Name: Jenni Draper Age: 43 yrs Sex: Female : 1980 Arrival Date: 05/06/2024 Time: 22:36 Bed 10 Private MD: Diagnosis: Other seizures;Breakthrough seizure, fall at home, acute head and neck injury, acute right knee contusion, acute pelvic pain. Presentation: 05/07 00:40 Chief complaint: Patient states: pt reports had seizure approx 9 pm reports fell and kl hit head c/o pain to left knee hip neck and back of head reports took Nayzilam 5 mg nasal spray for breakthrough seizures. Coronavirus screen: Vaccine status: Patient reports being unvaccinated. Ebola Screen: Patient negative for fever greater than or equal to 101.5 degrees Fahrenheit, and additional compatible Ebola Virus Disease symptoms. Initial Sepsis Screen: Does the patient meet any 2 criteria? No. Patient's initial sepsis screen is negative. Does the patient have a suspected source of infection? No. Patient's initial sepsis screen is negative. Risk Assessment: Do you want to hurt yourself or someone else? Patient reports no desire to harm self or others. Onset of symptoms was May 06, 2024 at 21:00. 00:40 Method Of Arrival: Wheelchair kl 00:40 Acuity: LYUBOV 3 kl Triage Assessment: 00:45 General: Appears in no apparent distress. Behavior is calm, cooperative. Pain: kl Complains of pain in right hip Pain currently is 8 out of 10 on a pain scale. Neuro: No deficits noted. Historical: - Allergies: 00:43 Adhesives; kl 00:43 Aspirin; kl 00:43 Bactrim; kl 00:43 Benadryl; kl 00:43 cefixime; kl 00:43 Cipro IV; kl 00:43 Clindamycin; kl 00:43 coconut oil; kl 00:43 Detrol; kl 00:43 Diltiazem; kl 00:43 Doxycycline; kl 00:43 FISH PRODUCT DERIVATIVES; kl 00:43 GABAPENTIN; kl 00:43 Iodine; kl 00:43 ivabradine; kl 00:43 Latex; kl 00:43 Morphine; kl 00:43 PENICILLINS; kl 00:43 Seroquel; kl 00:43 Sulfa (Sulfonamide Antibiotics); kl 00:43 tramadol; - Home Meds: 00:43 apixaban 5 mg Oral tab 1 tab 2 times per day [Active]; albuterol sulfate 2.5 mg /3 mL kl (0.083 %) Inhl nebu 3 mL 3 times per day [Active]; Breo Ellipta inhalation [Active]; BuSpar Oral [Active]; carvedilol 25 mg Oral tab 1 tab 2 times per day [Active]; Crestor 5 mg Oral tab 1 tab once daily [Active]; digoxin 125 mcg (0.125 mg) Oral tab 1 tab once daily [Active]; duloxetine 30 mg Oral CDRS 1 cap once daily [Active]; Keppra 750 mg Oral tab 1 tab [Active]; Lasix 20 mg Oral tab 1 tab [Active]; pantoprazole 20 mg Oral TbEC 1 tab once daily [Active]; Restasis 0.05 % ophthalmic (eye) dpet 1 drop every 12 hours [Active]; Spiriva with HandiHaler inhalation [Active]; Vraylar 4.5 mg Oral cap once daily [Active]; Xanax 0.25 mg Oral tab 1 tab [Active]; Nayzilam 5 mg/spray (0.1 mL) intranasal spray, non-aerosol 1 spray for acute repetitive seizures [Active]; - PMHx: 00:43 Anxiety; Atrial fibrillation; Bipolar disorder; COPD; CVA; Seizure; kl - PSHx: 00:43 hysterectomy; pacemaker; kl - Immunization history:: Adult Immunizations not immunized. - Infectious Disease History:: Denies. - Social history:: Smoking status: unknown. - Family history:: not pertinent. Screenin:29 [facility] ED Fall Risk Assessment (Adult) History of falling in the last 3 months, jb4 including since admission No falls in past 3 months (0 pts) Confusion or Disorientation No (0 pts) Intoxicated or Sedated No (0 pts) Impaired Gait No (0 pts) Mobility Assist Device Used No (0 pt) Altered Elimination No (0 pt) Score/Fall Risk Level 0 - 2 = Low Risk Oriented to surroundings, Maintained a safe environment. Abuse screen: Denies threats or abuse. Nutritional screening: No deficits noted. Tuberculosis screening: No symptoms or risk factors identified. Assessment: 05:29 Reassessment: Patient appears in no apparent distress at this time. Patient and/or jb4 family updated on plan of care and expected duration. Pain level reassessed. Patient is alert, oriented x 3, equal unlabored respirations, skin warm/dry/pink. Vital Signs: 00:40 BP 103 / 73; Pulse 88; Resp 18; Temp 98(O); Pulse Ox 99% on R/A; Weight 54.43 kg (M); kl Pain 8/10; 00:40 Pain Scale: Adult kl Kvng Coma Score: 00:45 Eye Response: spontaneous(4). Motor Response: obeys commands(6). Verbal Response: kl oriented(5). Total: 15. 22:34 Eye Response: spontaneous(4). Motor Response: obeys commands(6). Verbal Response: sp4 oriented(5). Total: 15. ED Course: 05/06 22:42 Patient arrived in ED. gm2 22:50 Deni Kirk MD is Attending Physician. sp4 23:58 CT Head C Spine In Process Unspecified. EDMS 23:59 Pelvis XRAY In Process Unspecified. EDMS 23:59 Knee Right 3 View XRAY In Process Unspecified. EDMS 23:59 Femur Right XRAY In Process Unspecified. EDMS 05/07 00:43 Triage completed. kl 03:06 CBC with Diff Sent. vk 03:06 CMP Sent. vk 05:29 No provider procedures requiring assistance completed. IV discontinued, intact, jb4 bleeding controlled, No redness/swelling at site. Pressure dressing applied. 05:29 Patient has correct armband on for positive identification. Bed in low position. Call jb4 light in reach. Side rails up X 1. Seizure precautions initiated. Provided Education on: discharge instructions.. Administered Medications: 03:29 Drug: Maynard PO 10 mg-325 mg 1 tabs PO once Route: PO; jb4 05:28 Follow up: Response: No adverse reaction; Marked relief of symptoms jb4 03:30 Drug: Keppra IV 1000 mg IV at bolus once Route: IV; Rate: bolus; Site: right forearm; jb4 03:45 Follow up: Response: No adverse reaction; Marked relief of symptoms; IV Status: jb4 Completed infusion; IV Intake: 100ml Medication: 05:29 VIS not applicable for this client. jb4 Intake: 03:45 IV: 100ml; Total: 100ml. jb4 Outcome: 04:53 Discharge ordered by . spMaria Luisa 05:29 Discharged to home ambulatory, with family, kyara 05:29 Condition: stable 05:29 Discharge instructions given to patient, Instructed on discharge instructions, follow up and referral plans. the need for admit, Demonstrated understanding of instructions, follow-up care, medications, Prescriptions given X 2, 05:32 Patient left the ED. jb4 Signatures: Dispatcher [employer] EDMarcela Murphy RN RN kl Bryson, James, RN RN jb4 Potepalov, Sergey, MD MD spGali Zheng gm2 Sis Hong
[2024-05-07 05:39] VITALS: BP 103/73; TEMP 98; O2SAT 99
--- NOTE | 2024-05-07 13:00 | RAD REPORT ---
EXAM DESCRIPTION: CT - Head C Spine Mpr Wo Con - 05/06/2024 11:56 pm CLINICAL HISTORY: Fall head injury TECHNIQUE: Contiguous axial CT images obtained through the brain without IV contrast. Coronal and sa gittal reformatted images were provided. This exam was performed according to our departmental dose-optimization program, which includes autom ated exposure control, adjustment of the mA and/or kV according to patient size and/or use of iterati ve reconstruction technique. COMPARISON: None available for comparison FINDINGS: Brain: No focal mass effect. Pineda-white matter differentiation is within normal limits. No hemorrhage. Ventricles: No ventriculomegaly or midline shift. Extra-axial spaces: No extra-axial collection or hemorrhage. Paranasal sinuses and mastoid air cells: Well-aerated Bones: Unremarkable Soft tissues: Unremarkable IMPRESSION: No evidence of acute intracranial injury. EXAM DESCRIPTION: Head C Spine Mpr Wo Con CLINICAL HISTORY: Fall head injury TECHNIQUE: Contiguous axial CT images obtained through the cervical spine without IV contrast. Cor onal and sagittal reformatted images also provided. This exam was performed according to our departmental dose-optimization program, which includes autom ated exposure control, adjustment of the mA and/or kV according to patient size and/or use of iterati ve reconstruction technique. COMPARISON: None available for comparison FINDINGS: Vertebra: No acute fracture or subluxation. Degenerative changes: Intervertebral disc spaces are fairly well maintained. No critical canal stenos is. Foramina appear patent. Prevertebral soft tissues: Unremarkable Lung apices: Clear IMPRESSION: No acute cervical spine injury. Electronically signed by: Fer Buenrostro MD 05/07/2024 01:43 AM CDT RP Due to temporary technical issues with the PACS/Fluency reporting system, reports are being signed by the in house radiologist without review as a courtesy to ensure prompt reporting. The interpreting r adiologist is fully responsible for the content of the report.
--- NOTE | 2024-05-07 13:16 | RAD REPORT ---
EXAM DESCRIPTION: RAD - Knee Right 3 View - 05/06/2024 11:57 pm CLINICAL HISTORY: Right knee pain. COMPARISON: None. TECHNIQUE: XR KNEE 3 VIEWS RIGHT 05/06/2024 11:25 PM CDT FINDINGS: There is no fracture. Joint spaces are preserved. Soft tissues are unremarkable. IMPRESSION: No acute osseous findings. Electronically signed by: Jayro Saeed MD 05/07/2024 01:25 AM CDT RP Due to temporary technical issues with the PACS/Fluency reporting system, reports are being signed by the in house radiologist without review as a courtesy to ensure prompt reporting. The interpreting r adiologist is fully responsible for the content of the report.
--- NOTE | 2024-05-07 13:17 | RAD REPORT ---
EXAM DESCRIPTION: RAD - Pelvis - 05/06/2024 11:57 pm CLINICAL HISTORY: Fall , hip pain right COMPARISON: None. TECHNIQUE: XR PELVIS 1-2 VIEWS 05/06/2024 11:25 PM CDT FINDINGS: There is no fracture. Joint spaces are preserved. Soft tissues are unremarkable. IMPRESSION: No acute osseous findings. Electronically signed by: Jayro Saeed MD 05/07/2024 01:25 AM CDT RP Due to temporary technical issues with the PACS/Fluency reporting system, reports are being signed by the in house radiologist without review as a courtesy to ensure prompt reporting. The interpreting r adiologist is fully responsible for the content of the report.
--- NOTE | 2024-05-07 13:20 | RAD REPORT ---
EXAM DESCRIPTION: RAD - Femur Right - 05/06/2024 11:57 pm CLINICAL HISTORY: Right hip pain TECHNIQUE: 4 views of the right femur are submitted. COMPARISON: None available for comparison FINDINGS: Bones: No acute fracture or dislocation. Joints: Joint spaces are unremarkable. Soft tissues: No radiopaque foreign bodies. IMPRESSION: Normal radiographic appearance of the right femur. Electronically signed by: Fer Buenrostro MD 05/07/2024 01:35 AM CDT RP Due to temporary technical issues with the PACS/Fluency reporting system, reports are being signed by the in house radiologist without review as a courtesy to ensure prompt reporting. The interpreting r adiologist is fully responsible for the content of the report.
== END 2024-05-07 05:32 | disposition home or self-care (01) ==
LOC: ER 22:36
DX: G40.509 Epileptic seizures related to external causes, not intractable, without status epilepticus (principal); S09.90XA Unspecified injury of head, initial encounter; S19.9XXA Unspecified injury of neck, initial encounter; S80.01XA Contusion of right knee, initial encounter; R10.2 Pelvic and perineal pain; W18.30XA Fall on same level, unspecified, initial encounter; Z95.0 Presence of cardiac pacemaker
CPT/HCPCS: 85025; 36415; 80053; 70450; 72125; 72170; 73562; 73552; J1953

== ENCOUNTER 2024-08-03 01:14 | Emergency (ER) | payer OTHER ==
[2024-08-03] MEDS ORDERED: droPERidol 5 MG/2 ML VIAL ONE (02:03)
[2024-08-03 02:21] LABS: Absolute Eosinophils 0.2 K/uL (0-0.5); Absolute Lymphocytes (CBC) 1.9 K/uL (0.7-4.9); Absolute Monocytes 0.5 K/uL (0.1-1.3); Absolute Neutrophil 2.9 K/uL (1.8-8.0); Basophils % 0.7 % (0-1.3); Eosinophils % 2.8 % (0-4.4); Hematocrit 36.4 % (36.0-45.0); Hemoglobin 12.5 g/dL (12.0-15.0); Lymphocytes % 35.1 % (15.3-44.8); MCH 29.1 pg (27.0-35.0); MCHC 34.2 g/dL (32.0-36.0); MPV 8.1 fL (7.6-11.3); Monocytes % 8.3 % (3.3-12.3); Neutrophils % 53.1 % (41.7-73.7); Nucleated Red Blood Cells % 0.2 % (0-0); Platelets 228 thou/uL (152-406); RBC Red Blood Cell Count 4.28 M/uL (3.86-4.86); Red Cell Distribution Width 13.6 % (12.1-15.2)
[2024-08-03 02:34] LABS: Anion Gap 7.9 mEq/L (5.0-15.0); BUN Blood Urea Nitrogen 16 mg/dL (7-18); Bicarbonate 27 mEq/L (21-32); Glomerular Filtration Rate 103 ml/min (=/>90); Glucose Level 127 mg/dL (74-106); Potassium 3.9 mEq/L (3.5-5.1); Sodium Level 140 mEq/L (136-145)
[2024-08-03 02:42] LABS: Troponin High Sensitivity < 3.0 pg/mL (<58.9)
--- NOTE | 2024-08-03 03:52 | RAD REPORT ---
CLINICAL HISTORY: Chest pain. COMPARISON: None. TECHNIQUE: XR CHEST 1 VIEW 08/03/2024 1:32 AM FORENSIC COMPUTER EXAMINER FINDINGS: Regular dual-chamber pacemaker is present. Lungs are clear without consolidation, atelectasis, mass o r edema. There is no pleural effusion. There is no pneumothorax. There are no acute osseous findings. IMPRESSION: Clear lungs. Electronically signed by: Jayro Saeed MD 08/03/2024 03:03 AM FORENSIC COMPUTER EXAMINER RP Due to temporary technical issues with the PACS/[employer] reporting system, reports are being gopal d by the in-house radiologist without review as a courtesy to ensure prompt reporting the interpreting radiologist is fully responsible for the content of the report. Transcribed Date/Time: 08/03/2024 3:52 AM
--- NOTE | 2024-08-03 04:06 | RAD REPORT ---
CLINICAL HISTORY: Seizure. COMPARISON: None. TECHNIQUE: CT HEAD WITHOUT IV CONTRAST on 08/03/2024 1:32 AM ADMISSIONS DIRECTOR This exam was performed according to our departmental dose-optimization program, which includes autom ated exposure control, adjustment of the mA and/or kV according to patient size and/or use of iterative reconstruction technique. FINDINGS: There is no acute hemorrhage, mass effect or midline shift. Pineda-white differentiation is preserved. There is no hydrocephalus. There is no significant volume loss for age. The calvarium is intact. Orbits and globes are unremarkable. The paranasal sinuses are clear. Mastoid air cells are clear. IMPRESSION: No acute intracranial findings. Electronically signed by: Jayro Saeed MD 08/03/2024 03:10 AM ADMISSIONS DIRECTOR RP Due to temporary technical issues with the PACS/scenios reporting system, reports are being gopal d by the in-house radiologist without review as a courtesy to ensure prompt reporting the interpreting radiologist is fully responsible for the content of the report. Transcribed Date/Time: 08/03/2024 4:06 AM
--- NOTE | 2024-08-03 04:37 | ER ---
Nurse's Notes [facility] Name: Jenni Draper Age: 44 yrs Sex: Female : 1980 Arrival Date: 08/03/2024 Time: 01:14 Bed 8 Private MD: Diagnosis: Chest pain, unspecified;Other seizures Presentation: 08/03 01:35 Chief complaint: Patient states: CP X1 HR. 2 seizure episodes at 2330. 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 Coronavirus screen: Client denies travel out of the [place] in the last 14 days. At this time, the client does not indicate any symptoms associated with coronavirus-19. Ebola Screen: No symptoms or risks identified at this time. Initial Sepsis Screen: Does the patient meet any 2 criteria? No. Patient's initial sepsis screen is negative. Does the patient have a suspected source of infection? No. Patient's initial sepsis screen is negative. Risk Assessment: Do you want to hurt yourself or someone else? Patient reports no desire to harm self or others. Onset of symptoms was August 03, 2024. 01:35 Method Of Arrival: Wheelchair lg3 01:35 Acuity: LYUBOV 3 lg3 Triage Assessment: 01:37 General: Appears in no apparent distress. comfortable, Behavior is calm, cooperative. lg3 Pain: Complains of pain in chest. EENT: No deficits noted. No signs and/or symptoms were reported regarding the EENT system. Neuro: No deficits noted. Foss Agitation-Sedation Scale (RASS): 0 - Alert and Calm Level of Consciousness is awake, alert, obeys commands, Oriented to person, place, time, situation. Cardiovascular: No deficits noted. Reports chest pain, Capillary refill < 3 seconds Clubbing of nail beds is absent JVD is absent Patient's skin is warm and dry. Respiratory: No deficits noted. Airway is patent Respiratory effort is even, unlabored, Respiratory pattern is regular, symmetrical. GI: No deficits noted. No signs and/or symptoms were reported involving the gastrointestinal system. : No signs and/or symptoms were reported regarding the genitourinary system. Derm: No deficits noted. No signs and/or symptoms reported regarding the dermatologic system. Skin is intact, is healthy with good turgor, Skin is dry, Skin is normal, Skin temperature is warm. Musculoskeletal: No deficits noted. Circulation, motion, and sensation intact. Range of motion: intact in all extremities. PATENT EXAMINER: 01:37 LMP N/A - Hysterectomy, Not lg3 Historical: - Allergies: 01:37 Iodine; lg3 01:37 Benadryl; lg3 01:37 Metoprolol Tartrate; lg3 01:37 hydrocodone; lg3 01:37 tolterodine; lg3 01:37 Cephalexin; lg3 01:37 Levofloxacin; lg3 01:37 lithium; lg3 01:37 montelukast; lg3 01:37 Bactrim; lg3 01:37 Cipro IV; lg3 01:37 coconut oil; lg3 01:37 Detrol; lg3 01:37 FISH PRODUCT DERIVATIVES; lg3 01:37 Latex, Natural Rubber; lg3 01:37 Seroquel; lg3 01:37 Suprax; lg3 01:37 Adhesives; lg3 01:37 Aspirin; lg3 01:37 cefixime; lg3 01:37 Clindamycin; lg3 01:37 Diltiazem; lg3 01:37 Doxycycline; lg3 01:37 GABAPENTIN; lg3 01:37 ivabradine; lg3 01:37 Morphine; lg3 01:37 PENICILLINS; lg3 01:37 Sulfa (Sulfonamide Antibiotics); lg3 01:37 tramadol; lg3 - PMHx: 01:37 Anxiety; Atrial fibrillation; Bipolar disorder; COPD; CVA; Seizure; lg3 - PSHx: 01:37 hysterectomy; pacemaker; lg3 - Immunization history:: Adult Immunizations up to date. - Infectious Disease History:: Denies. - Social history:: Smoking status: Patient denies any tobacco usage or history of. Patient/guardian denies using alcohol, street drugs. Screenin:06 [facility] ED Fall Risk Assessment (Adult) History of falling in the last 3 months, bm8 including since admission No falls in past 3 months (0 pts) Confusion or Disorientation No (0 pts) Intoxicated or Sedated No (0 pts) Impaired Gait No (0 pts) Mobility Assist Device Used No (0 pt) Altered Elimination No (0 pt) Score/Fall Risk Level 0 - 2 = Low Risk Oriented to surroundings, Maintained a safe environment, Educated pt \T\ family on fall prevention, incl call for assistance when getting out of bed, Assessed \T\ reinforced patient's understanding of fall precautions, Hourly rounding (assess needs \T\ fall precautionary measures) done, Used ambulatory aids as needed (educated on \T\ assisted with), Used gait belt as appropriate. Abuse screen: Denies threats or abuse. Nutritional screening: No deficits noted. Tuberculosis screening: No symptoms or risk factors identified. Assessment: 02:06 General: Appears in no apparent distress. comfortable, Behavior is calm, cooperative, bm8 appropriate for age. Pain: Complains of pain in chest Pain does not radiate. Pain currently is 8 out of 10 on a pain scale. Quality of pain is described as heavy, pressure, Pain began 2 hours ago. Neuro: No deficits noted. Level of Consciousness is awake, alert, obeys commands, Oriented to person, place, time, situation, Appropriate for age. Cardiovascular: No deficits noted. Reports chest pain, Heart tones S1 S2 present Capillary refill < 3 seconds in bilateral fingers Patient's skin is warm and dry. Pulses are all present. Rhythm is sinus rhythm. Respiratory: Airway is patent Trachea midline Respiratory effort is even, unlabored, Respiratory pattern is regular, symmetrical, Breath sounds are clear bilaterally. GI: No signs and/or symptoms were reported involving the gastrointestinal system. : No signs and/or symptoms were reported regarding the genitourinary system. EENT: No signs and/or symptoms were reported regarding the EENT system. Derm: No signs and/or symptoms reported regarding the dermatologic system. Musculoskeletal: No signs and/or symptoms reported regarding the musculoskeletal system. 04:02 Reassessment: Patient appears in no apparent distress at this time. Patient and/or bm8 family updated on plan of care and expected duration. Pain level reassessed. Patient is alert, oriented x 3, equal unlabored respirations, skin warm/dry/pink. Patient states feeling better. Patient states symptoms have improved. Pain: Complains of pain in chest Pain currently is 5 out of 10 on a pain scale. 04:43 Reassessment: Patient appears in no apparent distress at this time. No changes from bm8 previously documented assessment. Patient and/or family updated on plan of care and expected duration. Pain level reassessed. Patient is alert, oriented x 3, equal unlabored respirations, skin warm/dry/pink. Patient states feeling better. Patient states symptoms have improved. Vital Signs: 01:35 BP 115 / 80; Pulse 88; Resp 17 S; Temp 98.6(O); Pulse Ox 98% on R/A; Weight 57.61 kg lg3 (R); Height 4 ft. 11 in. (R); 02:06 BP 97 / 69; Pulse 90; Resp 20; Temp 98.6; Pulse Ox 96% on R/A; Pain 8/10; bm8 04:02 BP 99 / 78; Pulse 74; Resp 18; Temp 98.6; Pulse Ox 98% on R/A; Pain 5/10; bm8 04:43 BP 98 / 78; Pulse 83; Resp 17; Temp 98.5; Pulse Ox 98% ; Pain 5/10; bm8 01:35 Body Mass Index 25.65 (57.61 kg, 149.86 cm) lg3 02:06 Pain Scale: Adult bm8 04:02 Pain Scale: Adult bm8 04:43 Pain Scale: Adult bm8 Chandler Coma Score: 02:06 Eye Response: spontaneous(4). Motor Response: obeys commands(6). Verbal Response: bm8 oriented(5). Total: 15. 04:02 Eye Response: spontaneous(4). Motor Response: obeys commands(6). Verbal Response: bm8 oriented(5). Total: 15. 04:43 Eye Response: spontaneous(4). Motor Response: obeys commands(6). Verbal Response: bm8 oriented(5). Total: 15. ED Course: 01:18 Patient arrived in ED. gm2 01:19 Tucker Obrien MD is Attending Physician. ec2 01:37 Triage completed. lg3 01:37 Arm band placed on right wrist. lg3 01:38 EKG done, by electrocardiograph technician. af3 01:58 XRAY Chest (1 view) In Process Unspecified. EDMS 02:06 No provider procedures requiring assistance completed. Initial lab(s) drawn, by javier valentino sent to lab. Inserted saline lock: 20 gauge in right forearm, using aseptic technique. Blood collected. Flushed with 10 mL NS. Patient maintains SpO2 saturation greater than 95% on room air. 02:06 Patient has correct armband on for positive identification. Bed in low position. Call bm8 light in reach. Side rails up X 1. Side rails up X2. Client placed on continuous cardiac and pulse oximetry monitoring. NIBP monitoring applied. plate put in worker on. Pulse ox on. NIBP on. Door closed. Noise minimized. Visitors limited. Warm blanket given. Pillow given. Verbal reassurance given. Head of bed elevated. 02:16 CT Head Brain wo Cont In Process Unspecified. EDMS 04:02 Horacio Gonzalez, RN is Primary Nurse. bm8 04:02 Provided Education on: post er care. bm8 04:05 EKG done, by electrocardiograph technician. reviewed by Tucker Obrien MD. bm8 04:37 Nacho Ash MD is Referral Physician. ec2 04:43 IV discontinued, intact, bleeding controlled, No redness/swelling at site. Pressure bm8 dressing applied. Administered Medications: 02:09 Drug: Droperidol IVP 2.5 mg IVP once Route: IVP; Site: right forearm; bm8 04:04 Follow up: Response: No adverse reaction bm8 Medication: 02:06 VIS not applicable for this client. bm8 Outcome: 04:37 Discharge ordered by . ec2 04:43 Discharged to home ambulatory, bm8 04:43 Condition: stable 04:43 Discharge instructions given to patient, family, Instructed on discharge instructions, follow up and referral plans. no drinking with medication, no driving heavy equipment, safety practices, Demonstrated understanding of instructions, follow-up care, medications, 04:45 Patient left the ED. bm8 Signatures: Dispatcher [employer] Yuliya Floyd RN RN lg3 Tucker Obrien MD MD 2 Gali Collado 2 Horacio Gonzalez, LAUREL RN bm8 Melina Leblanc 3
--- NOTE | 2024-08-03 04:37 | EDPHYS ---
Physician Documentation [facility] Name: Jenni Draper Age: 44 yrs Sex: Female : 1980 Arrival Date: 08/03/2024 Time: 01:14 Bed 8 Private MD: ED Physician Tucker Obrien HPI: 08/03 03:15 This 44 yrs old Female presents to ER via Wheelchair with complaints of Chest ec2 Pain, Syncope, Probable Seizure. 03:15 Patient arrives today for evaluation of chest pain. Patient reports that she had chest ec2 pain that started just prior to arrival. History of bipolar disease, seizure. Patient reportedly also had seizure x 2. Patient is on Keppra chronically and sees neurology.. 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: 01:37 LMP N/A - Hysterectomy, Not lg3 Historical: - Allergies: 01:37 Iodine; lg3 01:37 Benadryl; lg3 01:37 Metoprolol Tartrate; lg3 01:37 hydrocodone; lg3 01:37 tolterodine; lg3 01:37 Cephalexin; lg3 01:37 Levofloxacin; lg3 01:37 lithium; lg3 01:37 montelukast; lg3 01:37 Bactrim; lg3 01:37 Cipro IV; lg3 01:37 coconut oil; lg3 01:37 Detrol; lg3 01:37 FISH PRODUCT DERIVATIVES; lg3 01:37 Latex, Natural Rubber; lg3 01:37 Seroquel; lg3 01:37 Suprax; lg3 01:37 Adhesives; lg3 01:37 Aspirin; lg3 01:37 cefixime; lg3 01:37 Clindamycin; lg3 01:37 Diltiazem; lg3 01:37 Doxycycline; lg3 01:37 GABAPENTIN; lg3 01:37 ivabradine; lg3 01:37 Morphine; lg3 01:37 PENICILLINS; lg3 01:37 Sulfa (Sulfonamide Antibiotics); lg3 01:37 tramadol; lg3 - PMHx: 01:37 Anxiety; Atrial fibrillation; Bipolar disorder; COPD; CVA; Seizure; lg3 - PSHx: 01:37 hysterectomy; pacemaker; lg3 - Immunization history:: Adult Immunizations up to date. - Infectious Disease History:: Denies. - Social history:: Smoking status: Patient denies any tobacco usage or history of. Patient/guardian denies using alcohol, street drugs. ROS: 03:15 Constitutional: as per hpi ec2 Exam: 03:15 Constitutional: GEN: NAD Head: atraumatic Eyes: EOMI Ears: External ears are ec2 normal. CV: regular rate LUNGS: no respiratory distress ABD: non-distended SKIN: no evidence of rashes MSK: no evidence of trauma. Neuro: Intact neurologic examination. Vital Signs: 01:35 BP 115 / 80; Pulse 88; Resp 17 S; Temp 98.6(O); Pulse Ox 98% on R/A; Weight 57.61 kg lg3 (R); Height 4 ft. 11 in. (R); 02:06 BP 97 / 69; Pulse 90; Resp 20; Temp 98.6; Pulse Ox 96% on R/A; Pain 8/10; bm8 04:02 BP 99 / 78; Pulse 74; Resp 18; Temp 98.6; Pulse Ox 98% on R/A; Pain 5/10; bm8 04:43 BP 98 / 78; Pulse 83; Resp 17; Temp 98.5; Pulse Ox 98% ; Pain 5/10; bm8 01:35 Body Mass Index 25.65 (57.61 kg, 149.86 cm) lg3 02:06 Pain Scale: Adult bm8 04:02 Pain Scale: Adult bm8 04:43 Pain Scale: Adult bm8 Kvng Coma Score: 02:06 Eye Response: spontaneous(4). Motor Response: obeys commands(6). Verbal Response: bm8 oriented(5). Total: 15. 04:02 Eye Response: spontaneous(4). Motor Response: obeys commands(6). Verbal Response: bm8 oriented(5). Total: 15. 04:43 Eye Response: spontaneous(4). Motor Response: obeys commands(6). Verbal Response: bm8 oriented(5). Total: 15. MDM: 01:33 Medical Screening Exam initiated ec2 01:38 ED course: EKG independently reviewed and interpreted by me, shows normal sinus rhythm, ec2 rate of 84, no acute ST segment elevations, intervals are nonactionable.. 02:50 ED course: Metabolic profile, CBC, troponin are nonactionable.. ec2 03:15 Data reviewed: vital signs. ED course: Patient arrives today for evaluation for chest ec2 pain. Examination remarkable for neuro intact individuals otherwise in no acute distress with reassuring hemodynamics. Lab work is unrevealing. Will obtain repeat EKG and troponin. Differential diagnosis include processes such as ACS, electrolyte disturbances, anemia. 03:17 ED course: Chest x-ray shows no acute intrathoracic process.. ec2 03:17 ED course: CT scan of the head shows no acute cranial process.. ec2 04:01 ED course: Repeat EKG independently reviewed and interpreted by me, shows normal sinus ec2 rhythm, rate of 78, no acute ST segment ovation, intervals are nonactionable.. 04:36 ED course: Repeat troponin is static. Will discharge home have patient follow-up with ec2 PCP. Return precautions given.. 08/03 01:32 Order name: Basic Metabolic Panel; Complete Time: 02:50 ec2 08/03 01:32 Order name: CBC with Diff; Complete Time: 02:50 ec2 08/03 01:32 Order name: Troponin HS; Complete Time: 02:50 ec2 08/03 03:47 Order name: Troponin High Sensitivity; Complete Time: 04:36 ec2 08/03 01:32 Order name: XRAY Chest (1 view) ec2 08/03 01:32 Order name: CT Head Brain wo Cont ec2 08/03 01:32 Order name: Cardiac monitoring; Complete Time: 01:38 ec2 08/03 01:32 Order name: EKG - Nurse/Tech; Complete Time: 01:38 ec2 08/03 01:32 Order name: IV Saline Lock; Complete Time: 02:06 ec2 08/03 01:32 Order name: Labs collected and sent; Complete Time: 02:06 ec2 08/03 01:32 Order name: O2 Per Protocol; Complete Time: 01:38 ec2 08/03 01:32 Order name: O2 Sat Monitoring; Complete Time: 01:38 ec2 08/03 03:30 Order name: Misc. Order: repeat ekg trop 0400; Complete Time: 04:04 ec2 08/03 03:47 Order name: EKG - Nurse/Tech; Complete Time: 04:04 ec2 Administered Medications: 02:09 Drug: Droperidol IVP 2.5 mg IVP once Route: IVP; Site: right forearm; bm8 04:04 Follow up: Response: No adverse reaction bm8 Disposition Summary: 08/03/24 04:37 Discharge Ordered Notes: Location: Home ec2 Condition: Stable ec2 Diagnosis - Chest pain, unspecified ec2 - Other seizures ec2 Followup: ec2 - With: Nacho sAh MD - When: - Reason: Recheck today's complaints Discharge Instructions: - Discharge Summary Sheet ec2 - Nonspecific Chest Pain, Adult, [id number] ec2 Forms: - Medication Reconciliation Form ec2 - Antibiotic Education ec2 - Prescription Opioid Use ec2 - Patient Portal Instructions ec2 - Leadership Thank You Letter ec2 Signatures: Dispatcher [employer] EDMS Yuliya Perez, RN RN lg3 Tucker Obrien MD MD ec2 Horacio Gonzalez RN RN bm8 Corrections: (The following items were deleted from the chart) 01:33 01:32 BASIC METABOLIC PANEL+C.LAB.BRZ ordered. EDMS EDMS 01:33 01:32 CBC+H.LAB.BRZ ordered. EDMS EDMS 01:33 01:32 Troponin High Sensitivity+C.LAB.BRZ ordered. EDMS EDMS 01:33 01:33 Chest Single View+RAD.RAD.BRZ ordered. EDMS EDMS 01:33 01:33 Head Brain Wo Cont+CT.RAD.BRZ ordered. EDMS EDMS
[2024-08-03 04:53] VITALS: O2SAT 98
[2024-08-03 04:54] VITALS: BP 98/78; TEMP 98.5
--- NOTE | 2024-08-04 12:41 | EKG ---
Test Date: 2024-08-03 Test Time: 01:35:26 Boiler Coverer: AF MEASUREMENT RESULTS: Intervals: Rate: 84 SD: 146 QRSD: 86 QT: 366 QTc: 432 [place]: P: 58 SD: 146 QRS: 21 T: 37 INTERPRETIVE STATEMENTS: Normal sinus rhythm Normal ECG Compared to ECG 03/19/2024 19:29:15 Incomplete right bundle-branch block no longer present Myocardial infarct finding no longer present Electronically Signed On 08-04-24 12:39:10 PROTECTION ENGINEER by García Serrano
--- NOTE | 2024-08-05 12:07 | EKG ---
Test Date: 2024-08-03 Test Time: 03:58:32 Director Of Digital Platforms: LAINA MEASUREMENT RESULTS: Intervals: Rate: 78 ND: 158 QRSD: 88 QT: 370 QTc: 421 [place]: P: 62 ND: 158 QRS: 28 T: 45 INTERPRETIVE STATEMENTS: Sinus rhythm with marked sinus arrhythmia with junctional escape complexes Otherwise normal ECG Compared to ECG 08/03/2024 01:35:26 Junctional escape complex(es) now present Electronically Signed On 08-05-24 12:06:14 SOFTWARE ENGINEERING PROJECT MANAGER by García Serrano
== END 2024-08-03 04:45 | disposition home or self-care (01) ==
LOC: ER 01:14
DX: R07.9 Chest pain, unspecified (principal); G40.89 Other seizures; J44.9 Chronic obstructive pulmonary disease, unspecified; I48.91 Unspecified atrial fibrillation; F31.9 Bipolar disorder, unspecified; Z95.0 Presence of cardiac pacemaker
CPT/HCPCS: 93005; 85025; 80048; 36415; 84484 ×2; 70450; 71045; J1790; 96374; 99285

== ENCOUNTER 2024-09-10 20:10 | Emergency (ER) | payer OTHER ==
[2024-09-10] MEDS ORDERED: LORazepam 2 MG/ML VIAL ONE (20:14)
[2024-09-10] MEDS ORDERED: LEVETIRACETAM 500 MG/5 ML VIAL IV ONE (20:37)
[2024-09-10] MEDS ORDERED: ONDANSETRON 4 MG/2 ML VIAL ONE (20:37)
[2024-09-10] MEDS ORDERED: NA CHLORIDE 0.9% 1,000 ML ONE (20:37)
[2024-09-10 20:38] LABS: Absolute Basophils 0.1 K/uL (0-0.5); Absolute Eosinophils 0.3 K/uL (0-0.5); Absolute Monocytes 0.3 K/uL (0.1-1.3); Absolute Neutrophil 2.2 K/uL (1.8-8.0); Basophils % 1.4 % (0-1.3); Eosinophils % 5.3 % (0-4.4); Hematocrit 36.6 % (36.0-45.0); Lymphocytes % 41.3 % (15.3-44.8); MCH 28.5 pg (27.0-35.0); MCHC 32.9 g/dL (32.0-36.0); MCV 86.6 fL (80-100); MPV 8.5 fL (7.6-11.3); Monocytes % 7.1 % (3.3-12.3); Neutrophils % 44.9 % (41.7-73.7); Platelets 238 thou/uL (152-406); RBC Red Blood Cell Count 4.23 M/uL (3.86-4.86); Red Cell Distribution Width 13.7 % (12.1-15.2)
[2024-09-10] MEDS ORDERED: NA CHLORIDE 0.9% 100 ML ONE (20:38)
[2024-09-10 20:47] LABS: PT Prothrombin Time 13.5 SECONDS (9.4-12.5); Protime INR 1.21
[2024-09-10 21:00] LABS: ALT/SGPT 109 U/L (13-56); AST/SGOT 46 U/L (15-37); Albumin 3.6 g/dL (3.4-5.0); Alkaline Phosphatase 145 U/L (45-117); Anion Gap 7.5 mEq/L (5.0-15.0); BUN Blood Urea Nitrogen 14 mg/dL (7-18); Bicarbonate 30 mEq/L (21-32); Bilirubin Total 0.2 mg/dL (0.2-1.0); Globulin 3.6 g/dL (2.3-3.5); Glomerular Filtration Rate 91 ml/min (=/>90); Glucose Level 119 mg/dL (74-106); Magnesium 2.1 mg/dL (1.6-2.4); NT PRO-BNP 76 pg/mL (<125); Potassium 3.5 mEq/L (3.5-5.1); Protein, Total 7.2 g/dL (6.4-8.2); Sodium Level 141 mEq/L (136-145); Troponin High Sensitivity 3.8 pg/mL (<58.9)
[2024-09-10 21:01] LABS: Bilirubin Direct < 0.2 mg/dL (0-0.2)
--- NOTE | 2024-09-10 21:09 | RAD REPORT ---
Procedure: Chest Single View HISTORY: Seizure COMPARISON: July 2024 FINDINGS: The lungs appear clear of acute infiltrate. No significant pleural effusion noted. The heart is normal size. Pacemaker leads in place IMPRESSION: No acute abnormality is displayed.
--- NOTE | 2024-09-11 00:26 | EDPHYS ---
Physician Documentation [facility] Name: Jenni Draper Age: 44 yrs Sex: Female : 1980 Arrival Date: 09/10/2024 Time: 20:10 Bed 19 Private MD: ED Physician Deni Kirk HPI: 09/10 20:25 This 44 yrs old Female presents to ER via Unassigned with complaints of sp4 seizure for 7 min reported . 09/11 03:47 Patient brought in by private vehicle for acute seizure lasting more than 7 minutes. On sp4 arrival patient appears postictal. She is awake and reports that she takes Keppra 2000 mg twice a day, Lyrica 150 mg twice a day, clonazepam 2 mg twice daily. . 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: 09/10 20:15 LMP N/A - , Not rg5 Historical: - Allergies: 20:15 Adhesives; rg5 20:15 Aspirin; rg5 20:15 Bactrim; rg5 20:15 Benadryl; rg5 20:15 cefixime; rg5 20:15 Cephalexin; rg5 20:15 Cipro IV; rg5 20:15 Clindamycin; rg5 20:15 coconut oil; rg5 20:15 Detrol; rg5 20:15 Diltiazem; rg5 20:15 Doxycycline; rg5 20:15 FISH PRODUCT DERIVATIVES; rg5 20:15 GABAPENTIN; rg5 20:15 HYDROCODONE; rg5 20:15 Iodine; rg5 20:15 ivabradine; rg5 20:15 Latex; rg5 20:15 Levofloxacin; rg5 20:15 lithium; rg5 20:15 Metoprolol Tartrate; rg5 20:15 montelukast; rg5 20:15 Morphine; rg5 20:15 PENICILLINS; rg5 20:15 Seroquel; rg5 20:15 Sulfa (Sulfonamide Antibiotics); rg5 20:15 Suprax; rg5 20:15 tolterodine; rg5 20:15 tramadol; rg5 - PMHx: 20:15 Anxiety; Atrial fibrillation; Seizure; CVA; COPD; Bipolar disorder; rg5 - PSHx: 20:15 hysterectomy; pacemaker; rg5 - Immunization history:: Adult Immunizations up to date. - Infectious Disease History:: Denies. - Social history:: Smoking status: Patient denies any tobacco usage or history of. - Family history:: not pertinent. ROS: 09/11 03:47 Constitutional: Negative for fever, chills, and weight loss, positive for acute seizure sp4 All other systems are negative, Exam: 03:42 Constitutional: This is a well developed, well nourished patient who is awake, appears sp4 post ictal and sluggish Head/Face: Normocephalic, atraumatic. Eyes: Pupils equal round and reactive to light, extra-ocular motions intact. Lids and lashes normal. Conjunctiva and sclera are not injected. Cornea within normal limits. Periorbital areas with no swelling, redness, or edema. ENT: Nares patent. No nasal discharge, no septal abnormalities noted. Tympanic membranes are normal and external auditory canals are clear. Oropharynx with no redness, swelling, or masses, exudates, or evidence of obstruction, uvula midline. Mucous membranes moist. Neck: Trachea midline, no thyromegaly or masses palpated, and no cervical lymphadenopathy. Supple, full range of motion without nuchal rigidity, or vertebral point tenderness. Chest/axilla: Normal chest wall appearance and motion. Nontender with no deformity. No lesions are appreciated. Cardiovascular: Regular rate and rhythm with a normal S1 and S2. No gallops, murmurs, or rubs. Normal PMI, no JVD. No pulse deficits. Respiratory: Lungs have equal breath sounds bilaterally, clear to auscultation and percussion. No rales, rhonchi or wheezes noted. No increased work of breathing, no retractions or nasal flaring. Abdomen/GI: Soft, with normal bowel sounds. No distension or tympany. No guarding or rebound. No evidence of tenderness throughout. Back: No spinal tenderness. No costovertebral tenderness. Skin: Warm, dry with normal turgor. Normal color with no rashes, no lesions, and no evidence of cellulitis. MS/ Extremity: Pulses equal, no cyanosis. Neurovascular intact. Full, normal range of motion. Neuro: Awake and alert, GCS 15, oriented to person, place, Cranial nerves II-XII grossly intact. Motor strength 5/5 in all extremities. Sensory grossly intact. Follows commands 03:42 ECG was reviewed by the Attending Physician. EKG at 2014 normal sinus rhythm rate sp4 90, normal EKG Vital Signs: 09/10 20:15 BP 115 / 80; Pulse 92; Resp 19; Temp 98.2(O); Pulse Ox 97% on R/A; Weight 57.61 kg; rg5 Height 4 ft. 11 in. ; Pain 0/10; 21:23 BP 96 / 68; Pulse 84; Resp 18; Pulse Ox 95% on R/A; Pain 0/10; rg5 22:37 BP 99 / 68; Pulse 83; Resp 17; Pulse Ox 97% on R/A; rg5 23:12 BP 108 / 70; Pulse 90; Resp 17; Temp 98(O); Pulse Ox 96% on R/A; Pain 0/10; rg5 09/11 00:20 BP 104 / 69; Pulse 90; Resp 17; Pulse Ox 97% on R/A; Pain 0/10; rg5 09/10 20:15 Body Mass Index 25.65 (57.61 kg, 149.86 cm) [facility] 09/10 20:15 Pain Scale: Adult rg5 21:23 Pain Scale: Adult rg5 23:12 Pain Scale: Adult rg5 09/11 00:20 Pain Scale: Adult rg5 NIH Stroke Scale Scores: 03:42 NIHSS Score: 0 sp4 Kvng Coma Score: 09/10 20:15 Eye Response: spontaneous(4). Motor Response: obeys commands(6). Verbal Response: rg5 oriented(5). Total: 15. 09/11 03:42 Eye Response: spontaneous(4). Motor Response: obeys commands(6). Verbal Response: sp4 oriented(5). Total: 15. MDM: 09/10 20:13 Medical Screening Exam initiated kb 09/11 00:35 ED course: Procedure: Chest Single View HISTORY: Seizure COMPARISON: July 2024 sp4 FINDINGS: The lungs appear clear of acute infiltrate. No significant pleural effusion noted. The heart is normal size. Pacemaker leads in place IMPRESSION: No acute abnormality is displayed. . 03:42 Differential diagnosis: drug overdose, cardiac arrhythmia, seizure, TIA. Data reviewed: sp4 vital signs, nurses notes. 03:45 ED course: Procedure: Chest Single View HISTORY: Seizure COMPARISON: July 2024 sp4 FINDINGS: The lungs appear clear of acute infiltrate. No significant pleural effusion noted. The heart is normal size. Pacemaker leads in place IMPRESSION: No acute abnormality is displayed. . ED course: COMPARISON: None. 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 FINDINGS: There is no acute hemorrhage, mass effect or midline shift. Pineda-white differentiation is preserved. There is no hydrocephalus. There is no significant volume loss for age. The calvarium is intact. Orbits and globes are unremarkable. The paranasal sinuses are clear. Mastoid air cells are clear. IMPRESSION: No acute intracranial findings. . 03:47 Consideration of Admission/Observation Escalation of care including sp4 admission/observation considered. ED course: No additional seizures in the emergency room. Patient is stable for discharge home. Will prescribe intranasal Valium as needed breakthrough seizures. Will advise follow-up with neurologist for antiepileptic medication adjustment.. 09/10 20:25 Order name: Basic Metabolic Panel; Complete Time: 00:18 4 09/10 20:25 Order name: CBC with Diff; Complete Time: 00:18 4 09/10 20:25 Order name: LFT's; Complete Time: 00:18 4 09/10 20:25 Order name: Magnesium; Complete Time: 00:18 4 09/10 20:25 Order name: NT PRO-BNP; Complete Time: 00:18 sp4 09/10 20:25 Order name: PT-INR; Complete Time: 00:18 sp4 09/10 20:25 Order name: Troponin HS; Complete Time: 00:18 sp4 09/10 20:25 Order name: XRAY Chest (1 view); Complete Time: 00:18 sp4 09/10 20:25 Order name: EKG; Complete Time: 20:25 sp4 09/10 20:25 Order name: Cardiac monitoring; Complete Time: 20:46 sp4 09/10 20:25 Order name: EKG - Nurse/Tech; Complete Time: 20:47 sp4 09/10 20:25 Order name: IV Saline Lock; Complete Time: 20:47 sp4 09/10 20:25 Order name: Labs collected and sent; Complete Time: 20:47 sp4 09/10 20:25 Order name: O2 Per Protocol; Complete Time: 20:47 sp4 09/10 20:25 Order name: O2 Sat Monitoring; Complete Time: 20:47 sp4 EC/17 20:15 Rate is 90 beats/min. Rhythm is regular, Normal Sinus Rhythm. QRS [place] is Normal. [place] sp4 interval is normal. QRS interval is normal. QT interval is normal. No Q waves. T waves are Normal. No ST changes noted. Clinical impression: Normal ECG. Interpreted by me. Reviewed by me. Administered Medications: 20:20 Drug: Ativan IVP 2 mg IVP once Route: IVP; Site: right antecubital; rg5 21:00 Follow up: Response: No adverse reaction rg5 20:30 Drug: NS 0.9% IV 1000 ml IV at 1000 ml once; to be given as a bolus over 60 minutes rg5 Route: IV; Rate: 1000 ml; Site: right antecubital; 22:24 Follow up: IV Status: Completed infusion; IV Intake: 1000ml rg5 20:30 Drug: Ondansetron IVP 4 mg IVP once; over 2 minutes Route: IVP; Site: right antecubital;rg5 22:24 Follow up: Response: No adverse reaction rg5 20:30 Drug: Keppra IV 1000 mg IV at calculated rate once Route: IV; Rate: calculated rate; rg5 Site: right antecubital; 22:24 Follow up: IV Status: Completed infusion; IV Intake: 100ml rg5 Disposition Summary: 09/11/24 00:26 Discharge Ordered Notes: Location: Home sp4 Condition: Stable sp4 Diagnosis - Other seizures sp4 - Acute breakthrough seizure sp4 Followup: sp4 - With: Private Physician - When: 7 - 10 days - Reason: Recheck today's complaints Discharge Instructions: - Discharge Summary Sheet sp4 - Seizure, Adult sp4 Forms: - Patient Portal Instructions sp4 Prescriptions: - diazepam 10 mg/spray (0.1 mL) Nasal spray, non-aerosol - spray 0.1 milliliter INTRANASAL route once daily 1 spray in single nostril; as sp4 a single dose, as needed for breakthrough seizures; 2 unit; Refills: 0, Product Selection Permitted NIH Stroke Scale - NIH Stroke Score Date: 09/11/2024 Time: 03:42 Total Score = 0 10. Dysarthria (speech clarity - read or repeat words) - 0(Normal) 11. Extinction and Inattention (visual/tactile/auditory/spatial/personal) - 0(No abnormality) 1a. Level of Consciousness (LOC) - 0(Alert) 1b. Level of Consciousness (LOC) (Month \T\ Age) - 0(Both) 1c. LOC Commands (Open \T\ Closes Eyes/Construction Superintendent) - 0(Both) 2. Best Gaze (Lateral Gaze Paresis) - 0(Normal) 3. Visual Field Loss - 0(No visual loss) 4. Facial Palsy - 0(Normal) 5a. Left Arm: Motor (10-second hold) - 0(No drift) 5b. Right Arm: Motor (10-second hold) - 0(No drift) 6a. Left Leg: Motor (5-second hold - always test supine) - 0(No drift) 6b. Right Leg: Motor (5-second hold - always test supine) - 0(No drift) 7. Limb Ataxia (finger/nose \T\ heel/briggs - test with eyes open) - 0(Absent) 8. Sensory Loss (pinprick arms/legs/face) - 0(Normal) 9. Best Language: Aphasia (description/naming/reading) - 0(No aphasia) Initials: sp4 Signatures: Dispatcher [employer] Marie Torres, BUSINESS SUPPORT LIAISON-C BUSINESS SUPPORT LIAISON-Ckb Tanner Robbins MD MD rn Potepalov, Sergey, MD MD sp4 Rex Reyna RN RN rg5
--- NOTE | 2024-09-11 00:26 | ER ---
Nurse's Notes [facility] Name: Jenni Draper Age: 44 yrs Sex: Female : 1980 Arrival Date: 09/10/2024 Time: 20:10 Bed 19 Private MD: Diagnosis: Other seizures;Acute breakthrough seizure Presentation: 09/10 20:15 Chief complaint: Spouse and/or significant other states: she had 4 seizure before we rg5 got here, the longest is like 2minutes. 20:15 Coronavirus screen: Client denies travel out of the [place] in the last 14 days. Ebola rg5 Screen: Patient negative for fever greater than or equal to 101.5 degrees Fahrenheit, and additional compatible Ebola Virus Disease symptoms Patient denies exposure to infectious person. Patient denies travel to an Ebola-affected area in the 21 days before illness onset. No symptoms or risks identified at this time. Initial Sepsis Screen: Does the patient meet any 2 criteria? No. Patient's initial sepsis screen is negative. Does the patient have a suspected source of infection? No. Patient's initial sepsis screen is negative. Risk Assessment: Do you want to hurt yourself or someone else? Patient reports no desire to harm self or others. Onset of symptoms was September 10, 2024. Activity prior to arrival: seizure. 20:15 Method Of Arrival: Wheelchair rg5 20:15 Acuity: LYUBOV 3 rg5 Triage Assessment: 20:15 General: Appears in no apparent distress. Behavior is calm, cooperative, appropriate rg5 for age. Pain: Denies pain. EENT: No deficits noted. Neuro: Seizure activity reported prior to arrival. Cardiovascular: Patient's skin is warm and dry. Respiratory: Airway is patent Trachea midline Respiratory effort is even, unlabored, Respiratory pattern is regular, symmetrical. GI: Abdomen is round non-distended, obese. : No signs and/or symptoms were reported regarding the genitourinary system. Derm: Skin is intact, Skin is dry, Skin is normal, Skin temperature is warm. Musculoskeletal: Circulation, motion, and sensation intact. Range of motion: intact in all extremities. 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 LMP N/A - , Not rg5 Historical: - Allergies: 20:15 Adhesives; rg5 20:15 Aspirin; rg5 20:15 Bactrim; rg5 20:15 Benadryl; rg5 20:15 cefixime; rg5 20:15 Cephalexin; rg5 20:15 Cipro IV; rg5 20:15 Clindamycin; rg5 20:15 coconut oil; rg5 20:15 Detrol; rg5 20:15 Diltiazem; rg5 20:15 Doxycycline; rg5 20:15 FISH PRODUCT DERIVATIVES; rg5 20:15 GABAPENTIN; rg5 20:15 HYDROCODONE; rg5 20:15 Iodine; rg5 20:15 ivabradine; rg5 20:15 Latex; rg5 20:15 Levofloxacin; rg5 20:15 lithium; rg5 20:15 Metoprolol Tartrate; rg5 20:15 montelukast; rg5 20:15 Morphine; rg5 20:15 PENICILLINS; rg5 20:15 Seroquel; rg5 20:15 Sulfa (Sulfonamide Antibiotics); rg5 20:15 Suprax; rg5 20:15 tolterodine; rg5 20:15 tramadol; rg5 - PMHx: 20:15 Anxiety; Atrial fibrillation; Seizure; CVA; COPD; Bipolar disorder; rg5 - PSHx: 20:15 hysterectomy; pacemaker; rg5 - Immunization history:: Adult Immunizations up to date. - Infectious Disease History:: Denies. - Social history:: Smoking status: Patient denies any tobacco usage or history of. - Family history:: not pertinent. Screenin:15 [facility] ED Fall Risk Assessment (Adult) History of falling in the last 3 months, rg5 including since admission Yes- fall prone (multiple falls) (3 pts) Confusion or Disorientation No (0 pts) Intoxicated or Sedated No (0 pts) Impaired Gait Yes (1 pt) Mobility Assist Device Used Yes (1 pt) Altered Elimination No (0 pt) Score/Fall Risk Level 3 or more points = High Risk Oriented to surroundings, Maintained a safe environment, Used ambulatory aids as needed (educated on \T\ assisted with). 20:15 Abuse screen: Denies threats or abuse. Nutritional screening: No deficits noted. rg5 Tuberculosis screening: No symptoms or risk factors identified. Assessment: 20:15 Reassessment: see triage assessment. rg5 21:15 Reassessment: No changes from previously documented assessment. Patient and/or family rg5 updated on plan of care and expected duration. Pain level reassessed. Patient is alert, oriented x 3, equal unlabored respirations, skin warm/dry/pink. 22:25 Reassessment: No changes from previously documented assessment. Patient and/or family rg5 updated on plan of care and expected duration. Pain level reassessed. 23:30 Reassessment: Patient and/or family updated on plan of care and expected duration. Pain rg5 level reassessed. Patient is alert, oriented x 3, equal unlabored respirations, skin warm/dry/pink. Patient states symptoms have improved. 09/11 00:20 Reassessment: No changes from previously documented assessment. Patient and/or family rg5 updated on plan of care and expected duration. Pain level reassessed. Patient is alert, oriented x 3, equal unlabored respirations, skin warm/dry/pink. Vital Signs: 09/10 20:15 BP 115 / 80; Pulse 92; Resp 19; Temp 98.2(O); Pulse Ox 97% on R/A; Weight 57.61 kg; rg5 Height 4 ft. 11 in. ; Pain 0/10; 21:23 BP 96 / 68; Pulse 84; Resp 18; Pulse Ox 95% on R/A; Pain 0/10; rg5 22:37 BP 99 / 68; Pulse 83; Resp 17; Pulse Ox 97% on R/A; rg5 23:12 BP 108 / 70; Pulse 90; Resp 17; Temp 98(O); Pulse Ox 96% on R/A; Pain 0/10; 5 09/11 00:20 BP 104 / 69; Pulse 90; Resp 17; Pulse Ox 97% on R/A; Pain 0/10; rg5 09/10 20:15 Body Mass Index 25.65 (57.61 kg, 149.86 cm) 5 09/10 20:15 Pain Scale: Adult rg5 21:23 Pain Scale: Adult rg5 23:12 Pain Scale: Adult rg5 09/11 00:20 Pain Scale: Adult rg5 [place] Coma Score: 09/10 20:15 Eye Response: spontaneous(4). Motor Response: obeys commands(6). Verbal Response: rg5 oriented(5). Total: 15. 09/11 03:42 Eye Response: spontaneous(4). Motor Response: obeys commands(6). Verbal Response: sp4 oriented(5). Total: 15. NIH Stroke Scale Scores: 03:42 NIHSS Score: 0 sp4 ED Course: 09/10 20:12 Patient arrived in ED. rv1 20:13 Marie Gann [facility]NP-C [facility]. kb 20:13 Tanner Robbins MD is Attending Physician. kb 20:13 Deni Kirk MD is Attending Physician. kb 20:15 Rex Reyna, LAUREL is Primary Nurse. rg5 20:15 Arm band placed on right wrist. EKG completed in triage. Results shown to MD. rg5 20:15 Patient has correct armband on for positive identification. Call light in reach. Side rg5 rails up X2. Door closed. Noise minimized. Warm blanket given. Verbal reassurance given. 20:15 Seizure precautions initiated. rg5 20:15 No provider procedures requiring assistance completed. Inserted saline lock: 22 gauge rg5 in right antecubital area, using aseptic technique. Blood collected. Flushed with 10 mL NS. 20:56 XRAY Chest (1 view) In Process Unspecified. EDMS 21:18 Triage completed. rg5 23:30 Resting quietly. Appears to be sleeping. rg5 12 00:45 Provided Education on: post er care. rg5 00:45 IV discontinued, bleeding controlled, No redness/swelling at site. Pressure dressing rg5 applied. Administered Medications: 09/10 20:20 Drug: Ativan IVP 2 mg IVP once Route: IVP; Site: right antecubital; rg5 21:00 Follow up: Response: No adverse reaction rg5 20:30 Drug: NS 0.9% IV 1000 ml IV at 1000 ml once; to be given as a bolus over 60 minutes rg5 Route: IV; Rate: 1000 ml; Site: right antecubital; 22:24 Follow up: IV Status: Completed infusion; IV Intake: 1000ml rg5 20:30 Drug: Ondansetron IVP 4 mg IVP once; over 2 minutes Route: IVP; Site: right antecubital;rg5 22:24 Follow up: Response: No adverse reaction rg5 20:30 Drug: Keppra IV 1000 mg IV at calculated rate once Route: IV; Rate: calculated rate; rg5 Site: right antecubital; 22:24 Follow up: IV Status: Completed infusion; IV Intake: 100ml rg5 Medication: 20:15 VIS not applicable for this client. rg5 Intake: 22:24 IV: 100ml; Total: 100ml. rg5 22:24 IV: 1000ml; Total: 1100ml. rg5 Outcome: 09/11 00:26 Discharge ordered by . sp4 00:46 Discharged to home via wheelchair, rg5 00:46 Condition: stable 00:46 Discharge instructions given to patient, 00:47 Patient left the ED. rg5 NIH Stroke Scale - NIH Stroke Score Date: 09/11/2024 Time: 03:42 Total Score = 0 10. Dysarthria (speech clarity - read or repeat words) - 0(Normal) 11. Extinction and Inattention (visual/tactile/auditory/spatial/personal) - 0(No abnormality) 1a. Level of Consciousness (LOC) - 0(Alert) 1b. Level of Consciousness (LOC) (Month \T\ Age) - 0(Both) 1c. LOC Commands (Open \T\ Closes Eyes/Train Starter) - 0(Both) 2. Best Gaze (Lateral Gaze Paresis) - 0(Normal) 3. Visual Field Loss - 0(No visual loss) 4. Facial Palsy - 0(Normal) 5a. Left Arm: Motor (10-second hold) - 0(No drift) 5b. Right Arm: Motor (10-second hold) - 0(No drift) 6a. Left Leg: Motor (5-second hold - always test supine) - 0(No drift) 6b. Right Leg: Motor (5-second hold - always test supine) - 0(No drift) 7. Limb Ataxia (finger/nose \T\ heel/briggs - test with eyes open) - 0(Absent) 8. Sensory Loss (pinprick arms/legs/face) - 0(Normal) 9. Best Language: Aphasia (description/naming/reading) - 0(No aphasia) Initials: sp4 Signatures: Dispatcher [employer] Marie Torres, JEWELRY RACKER-C JEWELRY RACKER-Aubree Blair rv1 Deni Kirk MD MD sp4 Rex Reyna, RN RN rg5
[2024-09-11 01:00] VITALS: TEMP 98
[2024-09-11 01:02] VITALS: BP 104/69; O2SAT 97
--- NOTE | 2024-09-12 11:30 | EKG ---
Test Date: 2024-09-10 Test Time: 20:15:06 Leather Stretcher: YAA MEASUREMENT RESULTS: Intervals: Rate: 90 IN: 160 QRSD: 92 QT: 358 QTc: 437 [place]: P: 35 IN: 160 QRS: 14 T: 44 INTERPRETIVE STATEMENTS: Normal sinus rhythm Normal ECG Compared to ECG 08/03/2024 03:58:32 Sinus arrhythmia no longer present Junctional escape complex(es) no longer present Electronically Signed On 09-12-24 11:28:03 MORTICIAN HELPER by García Serrano
== END 2024-09-11 00:47 | disposition home or self-care (01) ==
LOC: ER 20:10
DX: G40.89 Other seizures (principal); F41.9 Anxiety disorder, unspecified; I48.11 Longstanding persistent atrial fibrillation; J44.9 Chronic obstructive pulmonary disease, unspecified; Z88.1 Allergy status to other antibiotic agents; Z88.8 Allergy status to other drugs, medicaments and biological substances; Z88.0 Allergy status to penicillin; Z88.2 Allergy status to sulfonamides; Z91.040 Latex allergy status; Z91.013 Allergy to seafood; Z88.5 Allergy status to narcotic agent; Z86.73 Personal history of transient ischemic attack (TIA), and cerebral infarction without residual deficits
CPT/HCPCS: 96365; 93005; 85025; 80048; 36415; 83735; 85610; 80076; 84484; 83880; 71045; 96375; 99284; 96366; J1953; J2405; J7030

== ENCOUNTER 2024-09-26 23:39 | Emergency (ER) | payer OTHER ==
[2024-09-27] MEDS ORDERED: LORazepam 2 MG/ML VIAL ONE ×2 (00:04→00:19)
[2024-09-27] MEDS ORDERED: NA CHLORIDE 0.9% 1,000 ML ONE ×2 (00:05→01:00)
[2024-09-27 00:55] LABS: Anion Gap 8.9 mEq/L (5.0-15.0); Potassium 3.9 mEq/L (3.5-5.1)
[2024-09-27 01:02] LABS: Barbiturates NEGATIVE (NEGATIVE); Benzodiazepines POSITIVE (NEGATIVE); Cocaine NEGATIVE (NEGATIVE); METHAMPHETAM NEGATIVE (NEGATIVE); Methadone NEGATIVE (NEGATIVE); Opiates NEGATIVE (NEGATIVE); Phencyclidine NEGATIVE (NEGATIVE); THC Cannibis NEGATIVE (NEGATIVE)
[2024-09-27 01:28] LABS: Absolute Basophils 0.1 K/uL (0-0.5); Absolute Eosinophils 0.1 K/uL (0-0.5); Absolute Lymphocytes (CBC) 2.1 K/uL (0.7-4.9); Absolute Monocytes 0.5 K/uL (0.1-1.3); Absolute Neutrophil 3.2 K/uL (1.8-8.0); Basophils % 1.1 % (0-1.3); Eosinophils % 1.9 % (0-4.4); Hematocrit 32.2 % (36.0-45.0); Hemoglobin 10.8 g/dL (12.0-15.0); Lymphocytes % 35.1 % (15.3-44.8); MCH 28.7 pg (27.0-35.0); MCHC 33.6 g/dL (32.0-36.0); MCV 85.5 fL (80-100); MPV 8.2 fL (7.6-11.3); Monocytes % 8.8 % (3.3-12.3); Neutrophils % 53.1 % (41.7-73.7); Nucleated Red Blood Cells % 0.2 % (0-0); Platelets 254 thou/uL (152-406); RBC Red Blood Cell Count 3.76 M/uL (3.86-4.86); Red Cell Distribution Width 13.2 % (12.1-15.2)
--- NOTE | 2024-09-27 03:01 | ER ---
Nurse's Notes [facility] Name: Jenni Draper Age: 44 yrs Sex: Female : 1980 Arrival Date: 09/26/2024 Time: 23:39 Bed 8 Private MD: Diagnosis: Breakthrough seizure, Epilepsy Presentation: 09/26 23:51 Chief complaint: EMS states: PT DC'd from [facility]. On the way home family called [facility] EMS due to PT having multiple seizures. On EMS arrival to scene, PT had 2 witnessed grand mal seizures and one in route. IV initiated 2mg Ativan IV and 1000 mg Ofirmev administered. pt AAOx4 on arrival to ED. Coronavirus screen: Client denies travel out of the [place] in the last 14 days. At this time, the client does not indicate any symptoms associated with coronavirus-19. Ebola Screen: No symptoms or risks identified at this time. Initial Sepsis Screen: Does the patient meet any 2 criteria? No. Patient's initial sepsis screen is negative. Does the patient have a suspected source of infection? No. Patient's initial sepsis screen is negative. Risk Assessment: Do you want to hurt yourself or someone else? Patient reports no desire to harm self or others. Onset of symptoms is unknown. 23:51 Method Of Arrival: EMS: [place] [id number] 23:51 Acuity: LYUBOV 3 lg3 Triage Assessment: 23:55 General: Appears in no apparent distress. comfortable, Behavior is calm, cooperative. lg3 Pain: Denies pain. EENT: No deficits noted. No signs and/or symptoms were reported regarding the EENT system. Neuro: No deficits noted. [place]oss Agitation-Sedation Scale (RASS): 0 - Alert and Calm Level of Consciousness is awake, alert, obeys commands, Oriented to person, place, time, situation. Cardiovascular: No deficits noted. Denies chest pain, shortness of breath, Capillary refill < 3 seconds Clubbing of nail beds is absent JVD is absent Patient's skin is warm and dry. Respiratory: No deficits noted. Airway is patent Respiratory effort is even, unlabored, Respiratory pattern is regular, symmetrical. GI: No deficits noted. No signs and/or symptoms were reported involving the gastrointestinal system. : No signs and/or symptoms were reported regarding the genitourinary system. Derm: No deficits noted. No signs and/or symptoms reported regarding the dermatologic system. Skin is intact, is healthy with good turgor, Skin is dry, Skin is normal, Skin temperature is warm. Musculoskeletal: No deficits noted. No signs and/or symptoms reported regarding the musculoskeletal system. Circulation, motion, and sensation intact. Range of motion: intact in all extremities. 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 LMP N/A - Hysterectomy, Not lg3 Historical: - Allergies: 23:55 Adhesives; lg3 23:55 Aspirin; lg3 23:55 Bactrim; lg3 23:55 Benadryl; lg3 23:55 cefixime; lg3 23:55 Cephalexin; lg3 23:55 Cipro IV; lg3 23:55 Clindamycin; lg3 23:55 coconut oil; lg3 23:55 Detrol; lg3 23:55 Diltiazem; lg3 23:55 Doxycycline; lg3 23:55 FISH PRODUCT DERIVATIVES; lg3 23:55 GABAPENTIN; lg3 23:55 HYDROCODONE; lg3 23:55 Iodine; lg3 23:55 ivabradine; lg3 23:55 Latex; lg3 23:55 Levofloxacin; lg3 23:55 lithium; lg3 23:55 Metoprolol Tartrate; lg3 23:55 montelukast; lg3 23:55 Morphine; lg3 23:55 PENICILLINS; lg3 23:55 Seroquel; lg3 23:55 Sulfa (Sulfonamide Antibiotics); lg3 23:55 Suprax; lg3 23:55 tolterodine; lg3 23:55 tramadol; lg3 - PMHx: 23:55 Anxiety; Atrial fibrillation; Bipolar disorder; COPD; CVA; Seizure; lg3 - PSHx: 23:55 hysterectomy; pacemaker; lg3 - Immunization history:: Adult Immunizations up to date. - Infectious Disease History:: Denies. - Social history:: Smoking status: Patient denies any tobacco usage or history of. Patient/guardian denies using alcohol, street drugs. - Family history:: not pertinent. Screenin:58 [facility] ED Fall Risk Assessment (Adult) History of falling in the last 3 months, lg3 including since admission No falls in past 3 months (0 pts) Confusion or Disorientation No (0 pts) Intoxicated or Sedated No (0 pts) Impaired Gait No (0 pts) Mobility Assist Device Used No (0 pt) Altered Elimination No (0 pt) Score/Fall Risk Level 0 - 2 = Low Risk Oriented to surroundings, Maintained a safe environment, Educated pt \T\ family on fall prevention, incl call for assistance when getting out of bed, Assessed \T\ reinforced patient's understanding of fall precautions, Provided non-skid footwear. Abuse screen: Denies threats or abuse. Denies injuries from another. Nutritional screening: No deficits noted. Tuberculosis screening: No symptoms or risk factors identified. Assessment: 23:58 General: see triage assessment. lg3 09/27 00:56 Reassessment: Patient appears in no apparent distress at this time. No changes from 3 previously documented assessment. Patient and/or family updated on plan of care and expected duration. Pain level reassessed. Patient is alert, oriented x 3, equal unlabored respirations, skin warm/dry/pink. 02:24 Reassessment: Patient appears in no apparent distress at this time. No changes from lg3 previously documented assessment. Patient and/or family updated on plan of care and expected duration. Pain level reassessed. Patient is alert, oriented x 3, equal unlabored respirations, skin warm/dry/pink. 03:15 Reassessment: Patient appears in no apparent distress at this time. No changes from lg3 previously documented assessment. Patient and/or family updated on plan of care and expected duration. Pain level reassessed. Patient is alert, oriented x 3, equal unlabored respirations, skin warm/dry/pink. Patient states feeling better. Patient states symptoms have improved. Vital Signs: 09/26 23:51 BP 115 / 72; Pulse 90; Resp 19 S; Temp 98.2(O); Pulse Ox 97% on R/A; Weight 60.33 kg lg3 (R); Height 4 ft. 11 in. (R); Pain 0/10; 09/27 00:56 BP 116 / 67; Pulse 66; Resp 17 S; Pulse Ox 97% on R/A; lg3 01:24 BP 96 / 65; Pulse 83; Resp 16 S; Pulse Ox 95% on R/A; lg3 02:24 BP 101 / 65; Pulse 73; Resp 16 S; Pulse Ox 95% on R/A; lg3 03:16 BP 109 / 69; Pulse 77; Resp 17 S; Pulse Ox 96% on R/A; lg3 09/26 23:51 Body Mass Index 26.86 (60.33 kg, 149.86 cm) lg3 09/26 23:51 Pain Scale: Adult lg3 [place] Coma Score: 09/28 00:45 Eye Response: spontaneous(4). Motor Response: obeys commands(6). Verbal Response: sp4 oriented(5). Total: 15. ED Course: 09/26 23:41 Patient arrived in ED. vc1 23:44 Deni Kirk MD is Attending Physician. sp4 23:51 Yuliya Perez RN is Primary Nurse. lg3 23:55 Triage completed. lg3 23:55 Arm band placed on right wrist. lg3 23:58 Patient has correct armband on for positive identification. Placed in gown. Bed in low lg3 position. Call light in reach. Side rails up X2. Seizure precautions initiated. Client placed on continuous cardiac and pulse oximetry monitoring. NIBP monitoring applied. 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 Door closed. Noise minimized. Warm blanket given. Pillow given. Family accompanied patient. 23:58 Maintain EMS IV. Dressing intact. Good blood return noted. Site clean \T\ dry. Gauge \T\ lg 3 site: 20R FA. Flushed with 10 mL NS. Patient maintains SpO2 saturation greater than 95% on room air. 09/27 00:20 Lactate w/ 2H reflex if indic. Sent. lg3 00:20 CK Sent. lg3 00:20 Basic Metabolic Panel Sent. lg3 00:20 CBC with Diff Sent. lg3 01:02 initiated transfer with [facility]. Spoke Becky. Pt was accepted to [facility] L\T\D. kmf Accepting Dr Gusman, V \T\ 0102. Number for nurse to nurse report [phone]. [facility] to transfer pt. 03:16 No provider procedures requiring assistance completed. IV discontinued, intact, lg3 bleeding controlled, No redness/swelling at site. Pressure dressing applied. Administered Medications: 00:20 Drug: NS 0.9% IV 1000 ml IV at 1 bolus Per protocol; to be given as a bolus over 60 lg3 minutes Route: IV; Rate: 1 bolus; Site: right forearm; 00:57 Follow up: Response: No adverse reaction; IV Status: Completed infusion; IV Intake: lg3 1000ml 00:20 Drug: Ativan IVP 1 mg IVP once Route: IVP; Site: right antecubital; lg3 00:57 Follow up: Response: No adverse reaction; RASS: Drowsy (-1) lg3 00:20 Drug: Ativan IVP 1 mg IVP once Route: IVP; Site: right forearm; lg3 00:57 Follow up: Response: No adverse reaction; RASS: Drowsy (-1) lg3 01:01 Drug: NS 0.9% IV 1000 ml IV at 1 bolus Per protocol; to be given as a bolus over 60 lg3 minutes Route: IV; Rate: 1 bolus; Site: right forearm; 02:25 Follow up: Response: No adverse reaction; IV Status: Completed infusion; IV Intake: lg3 1000ml Medication: 03:16 VIS not applicable for this client. lg3 Intake: 00:57 IV: 1000ml; Total: 1000ml. lg3 02:25 IV: 1000ml; Total: 2000ml. lg3 Outcome: 03:01 Discharge ordered by . braulio 03:16 Discharged to home ambulatory, with significant other, lg3 03:16 Condition: stable 03:16 Discharge instructions given to patient, significant other, Instructed on discharge instructions, follow up and referral plans. medication usage, Demonstrated understanding of instructions, follow-up care, medications, Prescriptions given X 1, 03:17 Patient left the ED. lg3 Signatures: Yuliya Perez RN RN lg3 Louann Dillard RN RN vc1 Deni Kirk MD MD sp4 Forrester, Kelsey Maroul [facility]
--- NOTE | 2024-09-27 03:01 | EDPHYS ---
[facility] Name: Jenni Draper Age: 44 yrs Sex: Female : 1980 Arrival Date: 09/26/2024 Time: 23:39 Bed 8 Private MD: ED Physician Deni Kirk HPI: 09/26 23:44 This 44 yrs old Female presents to ER via Unassigned with complaints of sp4 seizure. 09/27 02:54 Patient's medications include albuterol 2 puffs every 6 hours, apixaban 5 mg twice a sp4 day, Breo ellipta, cariprazine 3 mg at bedtime, carvedilol 6.25 mg twice a day, clobazam 20 mg twice a day, Daliresp 500 mg in the morning, digoxin 125 mcg in the morning, duloxetine 30 mg in the morning, furosemide 20 mg in the evening, ipratropium albuterol solution as needed, Klonopin 1 mg twice a day, lacosamide 50 mg twice a day, Keppra 1000 mg 2 tabs in the morning and 2 tabs in the evening. Loratadine 10 mg daily, methocarbamol 750 mg 4 times a day, Nayzilam nasal spray. . Additional medications include Nexletol 180 mg in the morning, ondansetron as needed, pantoprazole 40 mg daily, pregabalin 150 mg twice a day, Qulipta 60 mg in the morning, rosuvastatin 40 mg bedtime, Spiriva 1 puff in the morning, Ubrelvy 100 mg as needed migraine, Veozah 40 mg tab daily, vitamin B12 oral, vitamin D3 oral, Zetia 10 mg every morning.. 44-year-old female complains of acute generalized seizure. Patient does have history of protracted seizures she was just released from [facility] on 09/26/2024 after being managed for seizures. Patient was recently started on lacosamide 50 mg twice a day. In addition to her Keppra.. 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 LMP N/A - Hysterectomy, Not lg3 Historical: - Allergies: 23:55 Adhesives; lg3 23:55 Aspirin; lg3 23:55 Bactrim; lg3 23:55 Benadryl; lg3 23:55 cefixime; lg3 23:55 Cephalexin; lg3 23:55 Cipro IV; lg3 23:55 Clindamycin; lg3 23:55 coconut oil; lg3 23:55 Detrol; lg3 23:55 Diltiazem; lg3 23:55 Doxycycline; lg3 23:55 FISH PRODUCT DERIVATIVES; lg3 23:55 GABAPENTIN; lg3 23:55 HYDROCODONE; lg3 23:55 Iodine; lg3 23:55 ivabradine; lg3 23:55 Latex; lg3 23:55 Levofloxacin; lg3 23:55 lithium; lg3 23:55 Metoprolol Tartrate; lg3 23:55 montelukast; lg3 23:55 Morphine; lg3 23:55 PENICILLINS; lg3 23:55 Seroquel; lg3 23:55 Sulfa (Sulfonamide Antibiotics); lg3 23:55 Suprax; lg3 23:55 tolterodine; lg3 23:55 tramadol; lg3 - PMHx: 23:55 Anxiety; Atrial fibrillation; Bipolar disorder; COPD; CVA; Seizure; lg3 - PSHx: 23:55 hysterectomy; pacemaker; lg3 - Immunization history:: Adult Immunizations up to date. - Infectious Disease History:: Denies. - Social history:: Smoking status: Patient denies any tobacco usage or history of. Patient/guardian denies using alcohol, street drugs. - Family history:: not pertinent. ROS: 09/28 00:45 Constitutional: Negative for fever, chills, and weight loss, positive for acute seizure sp4 All other systems are negative, Exam: 00:45 Constitutional: This is a well developed, well nourished patient who is awake, alert, sp4 and in no acute distress. Head/Face: Normocephalic, atraumatic. Eyes: Pupils equal round and reactive to light, extra-ocular motions intact. Lids and lashes normal. Conjunctiva and sclera are not injected. Cornea within normal limits. Periorbital areas with no swelling, redness, or edema. ENT: Nares patent. No nasal discharge, no septal abnormalities noted. Tympanic membranes are normal and external auditory canals are clear. Oropharynx with no redness, swelling, or masses, exudates, or evidence of obstruction, uvula midline. Mucous membranes moist. Neck: Trachea midline, no thyromegaly or masses palpated, and no cervical lymphadenopathy. Supple, full range of motion without nuchal rigidity, or vertebral point tenderness. Chest/axilla: Normal chest wall appearance and motion. Nontender with no deformity. No lesions are appreciated. Cardiovascular: Regular rate and rhythm with a normal S1 and S2. No gallops, murmurs, or rubs. Normal PMI, no JVD. No pulse deficits. Respiratory: Lungs have equal breath sounds bilaterally, clear to auscultation and percussion. No rales, rhonchi or wheezes noted. No increased work of breathing, no retractions or nasal flaring. Abdomen/GI: Soft, with normal bowel sounds. No distension or tympany. No guarding or rebound. No evidence of tenderness throughout. Back: No spinal tenderness. No costovertebral tenderness. Skin: Warm, dry with normal turgor. Normal color with no rashes, no lesions, and no evidence of cellulitis. MS/ Extremity: Pulses equal, no cyanosis. Neurovascular intact. Full, normal range of motion. Neuro: Awake and alert, GCS 15, oriented to person, place, time, and situation. Cranial nerves II-XII grossly intact. Motor strength 5/5 in all extremities. Sensory grossly intact. Psych: Awake, alert, with orientation to person, place and time. Behavior, mood, and affect are within normal limits Vital Signs: 09/26 23:51 BP 115 / 72; Pulse 90; Resp 19 S; Temp 98.2(O); Pulse Ox 97% on R/A; Weight 60.33 kg lg3 (R); Height 4 ft. 11 in. (R); Pain 0/10; 09/27 00:56 BP 116 / 67; Pulse 66; Resp 17 S; Pulse Ox 97% on R/A; lg3 01:24 BP 96 / 65; Pulse 83; Resp 16 S; Pulse Ox 95% on R/A; lg3 02:24 BP 101 / 65; Pulse 73; Resp 16 S; Pulse Ox 95% on R/A; lg3 03:16 BP 109 / 69; Pulse 77; Resp 17 S; Pulse Ox 96% on R/A; lg3 09/26 23:51 Body Mass Index 26.86 (60.33 kg, 149.86 cm) 3 09/26 23:51 Pain Scale: Adult lg3 Crawford Coma Score: 09/28 00:45 Eye Response: spontaneous(4). Motor Response: obeys commands(6). Verbal Response: sp4 oriented(5). Total: 15. MDM: 09/26 23:45 Medical Screening Exam initiated sp4 09/28 00:45 Differential diagnosis: cerebral vascular accident, drug overdose, seizure, TIA. Data sp4 reviewed: vital signs, nurses notes, EMS record, lab test result(s). Consideration of Admission/Observation Escalation of care including admission/observation considered. ED course: No additional seizures in the emergency room. Patient was started on Vimpat at [facility]. She was advised to continue Vimpat as prescribed. Will also provide prescription for as needed intranasal diazepam in case seizure recurs at home.. 09/26 23:45 Order name: Basic Metabolic Panel; Complete Time: 02:29 sp4 09/26 23:45 Order name: CBC with Diff; Complete Time: 02:29 sp4 09/26 23:45 Order name: CK; Complete Time: 02:29 sp4 09/26 23:45 Order name: Lactate w/ 2H reflex if indic.; Complete Time: 02:29 sp4 09/26 23:48 Order name: Urine Drug Screen; Complete Time: 02:29 kmf 09/27 01:05 Order name: Ghost Lactate-NO COLLECT Timer; Complete Time: 03:03 EDMS 09/26 23:45 Order name: Cardiac monitoring; Complete Time: 00:00 sp4 09/26 23:45 Order name: IV Saline Lock; Complete Time: 00:00 4 09/26 23:45 Order name: Labs collected and sent; Complete Time: 00:00 sp4 09/26 23:45 Order name: O2 Per Protocol; Complete Time: 00:00 sp4 09/26 23:45 Order name: O2 Sat Monitoring; Complete Time: 00:00 4 Administered Medications: 09/27 00:20 Drug: NS 0.9% IV 1000 ml IV at 1 bolus Per protocol; to be given as a bolus over 60 lg3 minutes Route: IV; Rate: 1 bolus; Site: right forearm; 00:57 Follow up: Response: No adverse reaction; IV Status: Completed infusion; IV Intake: lg3 1000ml 00:20 Drug: Ativan IVP 1 mg IVP once Route: IVP; Site: right antecubital; lg3 00:57 Follow up: Response: No adverse reaction; RASS: Drowsy (-1) lg3 00:20 Drug: Ativan IVP 1 mg IVP once Route: IVP; Site: right forearm; lg3 00:57 Follow up: Response: No adverse reaction; RASS: Drowsy (-1) lg3 01:01 Drug: NS 0.9% IV 1000 ml IV at 1 bolus Per protocol; to be given as a bolus over 60 lg3 minutes Route: IV; Rate: 1 bolus; Site: right forearm; 02:25 Follow up: Response: No adverse reaction; IV Status: Completed infusion; IV Intake: lg3 1000ml Disposition: 09/28 00:47 Chart complete. sp4 Disposition Summary: 09/27/24 03:01 Discharge Ordered Notes: Location: Home sp4 Problem: new sp4 Symptoms: have improved sp4 Condition: Stable sp4 Diagnosis - Breakthrough seizure, Epilepsy sp4 Followup: sp4 - With: Private Physician - When: 7 - 10 days - Reason: Recheck today's complaints Discharge Instructions: - Discharge Summary Sheet sp4 - Seizure, Adult, [id number] sp4 Forms: - Patient Portal Instructions sp4 Prescriptions: - diazepam 10 mg/spray (0.1 mL) Nasal spray, non-aerosol - spray 0.1 milliliter INTRANASAL route once 1 spray in single nostril;as a sp4 single dose; may repeat once after 4 hours; 2 unit; Refills: 0, Product Selection Permitted Signatures: Dispatcher [employer] Yuliya Floyd RN RN lg3 Deni Kirk MD MD sp4
[2024-09-27 10:32] VITALS: TEMP 98.2
[2024-09-27 10:39] VITALS: BP 109/69; O2SAT 96
== END 2024-09-27 03:17 | disposition home or self-care (01) ==
LOC: ER 23:39
DX: G40.909 Epilepsy, unspecified, not intractable, without status epilepticus (principal); Z95.0 Presence of cardiac pacemaker
CPT/HCPCS: 85025; 80048; 36415; 82550; 83605; 80307; 99285; J7030 ×2

== ENCOUNTER 2025-01-02 22:29 | Emergency (ER) | payer OTHER ==
--- NOTE | 2025-01-03 00:24 | EDPHYS ---
Physician Documentation [facility] Name: Jenni Draper Age: 44 yrs Sex: Female : 1980 Arrival Date: 01/02/2025 Time: 22:29 Bed IW1 Private MD: ED Physician Stanley Dukes HPI: 01/02 22:40 This 44 yrs old Female presents to ER via Wheelchair with complaints of Leg Injury, cp LEFT LEG. 22:40 The patient presents with an injury, pain, that is acute. The complaints affect the cp left knee and left lower leg. Context: resulted from the patient falling. Onset: The symptoms/episode began/occurred today. Modifying factors: the symptoms are aggravated by movement. 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 LMP N/A - Hysterectomy, Not vc1 Historical: - Allergies: 22:34 Adhesives; vc1 22:34 Aspirin; vc1 22:34 Bactrim; vc1 22:34 Benadryl; vc1 22:34 cefixime; vc1 22:34 Cephalexin; vc1 22:34 Cipro IV; vc1 22:34 Clindamycin; vc1 22:34 coconut oil; vc1 22:34 Detrol; vc1 22:34 Diltiazem; vc1 22:34 Doxycycline; vc1 22:34 FISH PRODUCT DERIVATIVES; vc1 22:34 GABAPENTIN; vc1 22:34 HYDROCODONE; vc1 22:34 Iodine; vc1 22:34 ivabradine; vc1 22:34 Latex; vc1 22:34 Metoprolol Tartrate; vc1 22:34 Morphine; vc1 22:34 Seroquel; vc1 22:34 tolterodine; vc1 22:34 tramadol; vc1 22:34 Suprax; vc1 22:34 Sulfa (Sulfonamide Antibiotics); vc1 22:34 PENICILLINS; vc1 22:34 montelukast; vc1 22:34 lithium; vc1 22:34 Levofloxacin; vc1 - PMHx: 22:34 Anxiety; Seizure; CVA; COPD; Atrial fibrillation; Bipolar disorder; vc1 - PSHx: 22:34 hysterectomy; pacemaker; vc1 - Immunization history:: Client reports receiving the 2nd dose of the Covid vaccine, Flu vaccine is up to date. - Infectious Disease History:: Denies. - Social history:: Smoking status: Patient denies any tobacco usage or history of. ROS: 22:45 MS/extremity: Positive for pain, of the left knee and left lower leg, Negative for cp deformity, 22:45 Neck: Negative for pain with movement, pain at rest, cp 22:45 Back: Negative for pain at rest, pain with movement, 22:45 All other systems are negative, Exam: 22:50 Constitutional: The patient appears in no acute distress, alert, awake, non-toxic, well cp developed, well nourished, uncomfortable, 22:50 Head/Face: Normocephalic, atraumatic. cp 22:50 Neck: ROM/movement: is normal, is supple, without pain, no range of motions limitations, 22:50 Chest/axilla: Inspection: normal, 22:50 Cardiovascular: Rate: normal, 22:50 Respiratory: the patient does not display signs of respiratory distress, 22:50 Abdomen/GI: Inspection: abdomen appears normal, 22:50 Back: pain, is absent, ROM is normal, 22:50 Musculoskeletal/extremity: Extremities: noted in the left lower leg: pain, tenderness, There is no evidence of deformity, Joints: the left knee displays painful range of motion, tenderness, Vital Signs: 22:33 Weight 57.61 kg; Height 4 ft. 11 in. ; Pain 10/10; vc1 22:36 BP 107 / 75; Pulse 74; Resp 18; Temp 97.3; Pulse Ox 97% ; vc1 22:33 Body Mass Index 25.65 (57.61 kg, 149.86 cm) vc1 22:33 Pain Scale: Adult vc1 MDM: 22:35 Medical Screening Exam initiated cp 01/03 00:23 Data reviewed: vital signs, nurses notes, radiologic studies, plain films, and as a cp result, I will discharge patient. 00:23 Differential diagnosis: dislocation, closed fracture, contusion, ligament injury. I cp considered the following discharge prescriptions or medication management in the emergency department Medications were administered in the Emergency Department. See MAR. Independent interpretation of the following test(s) in the Emergency Department X-Ray: My interpretation is images of left knee and left tib/fib negative for fracture. Care significantly affected by the following chronic conditions: Chronic Obstructive Pulmonary Disease. Counseling: I had a detailed discussion with the patient and/or guardian regarding the historical points, exam findings, and any diagnostic results supporting the discharge/admit diagnosis, radiology results, the need for outpatient follow up, a orthopedic surgeon, to return to the emergency department if symptoms worsen or persist or if there are any questions or concerns that arise at home. Response to treatment: the patient's symptoms have mildly improved after treatment, and as a result, I will discharge patient. 01/02 22:57 Order name: XRAY Knee LEFT 3 view cp 01/02 22:57 Order name: XRAY Tib Fib LEFT cp 01/03 00:23 Order name: Knee Immobilizer; Complete Time: 01:14 cp 01/03 00:23 Order name: Crutches; Complete Time: 01:14 cp Administered Medications: 01:14 Drug: Acetaminophen-Codeine PO (300 mg-30 mg) 2 tabs PO once; RASS on ADMIN: Combtv4, vc1 Very Agttd3, Agttd2, Rstlss1, AlertClm0, Drwsy-1, Lt Sdtn-2, Mod Sdtn-3, Dp Sdtn-4, UnArsble-5 Route: PO; 01:15 Follow up: Response: Medication administered at discharge. vc1 01:14 Drug: Ibuprofen PO 800 mg PO once Route: PO; vc1 01:16 Follow up: Response: Medication administered at discharge. vc1 Disposition: 17:08 Chart complete. cp Disposition Summary: 01/03/25 00:24 Discharge Ordered Notes: Location: Home cp Problem: new cp Symptoms: have improved cp Condition: Stable cp Diagnosis - Pain in left knee cp - Pain in left lower leg cp - Fall on same level from slipping, tripping and stumbling with subsequent striking cp against object Followup: cp - With: Bakari Kim MD - When: 5 - 6 days - Reason: Recheck today's complaints Discharge Instructions: - Discharge Summary Sheet cp - How to Use a Knee Immobilizer cp - Musculoskeletal Pain cp - Acute Knee Pain, Adult cp Forms: - Medication Reconciliation Form cp - Antibiotic Education cp - Prescription Opioid Use cp - Patient Portal Instructions cp - Leadership Thank You Letter cp Signatures: Dispatcher [employer] EDMS Caio Briones PA PA cp Calcote, Vanessa RN RN vc1 Corrections: (The following items were deleted from the chart) 01/02 22: 22:57 Knee Left 3 View+RAD.RAD.BRZ ordered. EDMS EDMS 22:57 Tib Fib Left+RAD.RAD.BRZ ordered. EDMS EDMS
--- NOTE | 2025-01-03 00:24 | ER ---
Nurse's Notes [facility] Name: Jenni Draper Age: 44 yrs Sex: Female : 1980 Arrival Date: 01/02/2025 Time: 22:29 Bed IW1 Private MD: Diagnosis: Pain in left knee;Pain in left lower leg;Fall on same level from slipping, tripping and stumbling with subsequent striking against object Presentation: 01/02 22:33 Chief complaint: Patient states: fell and hurt left knee. Coronavirus screen: Client vc1 denies travel out of the [place] in the last 14 days. At this time, the client does not indicate any symptoms associated with coronavirus-19. Ebola Screen: Patient negative for fever greater than or equal to 101.5 degrees Fahrenheit, and additional compatible Ebola Virus Disease symptoms Patient denies exposure to infectious person. Patient denies travel to an Ebola-affected area in the 21 days before illness onset. No symptoms or risks identified at this time. Initial Sepsis Screen: Does the patient meet any 2 criteria? No. Patient's initial sepsis screen is negative. Does the patient have a suspected source of infection? No. Patient's initial sepsis screen is negative. Risk Assessment: Do you want to hurt yourself or someone else? Patient reports no desire to harm self or others. Onset of symptoms was January 02, 2025 at 19:00. 22:33 Method Of Arrival: Wheelchair vc1 22:33 Acuity: LYUBOV 4 vc1 [employer]ILITY [employer]: 22:35 LMP N/A - Hysterectomy, Not vc1 Historical: - Allergies: 22:34 Adhesives; vc1 22:34 Aspirin; vc1 22:34 Bactrim; vc1 22:34 Benadryl; vc1 22:34 cefixime; vc1 22:34 Cephalexin; vc1 22:34 Cipro IV; vc1 22:34 Clindamycin; vc1 22:34 coconut oil; vc1 22:34 Detrol; vc1 22:34 Diltiazem; vc1 22:34 Doxycycline; vc1 22:34 FISH PRODUCT DERIVATIVES; vc1 22:34 GABAPENTIN; vc1 22:34 HYDROCODONE; vc1 22:34 Iodine; vc1 22:34 ivabradine; vc1 22:34 Latex; vc1 22:34 Metoprolol Tartrate; vc1 22:34 Morphine; vc1 22:34 Seroquel; vc1 22:34 tolterodine; vc1 22:34 tramadol; vc1 22:34 Suprax; vc1 22:34 Sulfa (Sulfonamide Antibiotics); vc1 22:34 PENICILLINS; vc1 22:34 montelukast; vc1 22:34 lithium; vc1 22:34 Levofloxacin; vc1 - PMHx: 22:34 Anxiety; Seizure; CVA; COPD; Atrial fibrillation; Bipolar disorder; vc1 - PSHx: 22:34 hysterectomy; pacemaker; vc1 - Immunization history:: Client reports receiving the 2nd dose of the Covid vaccine, Flu vaccine is up to date. - Infectious Disease History:: Denies. - Social history:: Smoking status: Patient denies any tobacco usage or history of. Screenin:35 Abuse screen: Denies threats or abuse. Nutritional screening: No deficits noted. vc1 Tuberculosis screening: No symptoms or risk factors identified. 22:35 [facility] ED Fall Risk Assessment (Adult) History of falling in the last 3 months, vc1 including since admission No falls in past 3 months (0 pts) Confusion or Disorientation No (0 pts) Intoxicated or Sedated No (0 pts) Impaired Gait No (0 pts) Mobility Assist Device Used No (0 pt) Altered Elimination No (0 pt) Score/Fall Risk Level 0 - 2 = Low Risk Oriented to surroundings, Maintained a safe environment, Educated pt \T\ family on fall prevention, incl call for assistance when getting out of bed. Assessment: 01/03 01:29 General: Appears in no apparent distress. uncomfortable, Behavior is calm, cooperative, vc1 appropriate for age. Pain: Complains of pain in left leg Pain does not radiate. Neuro: Level of Consciousness is awake, alert, obeys commands, Oriented to person, place, time, situation, Appropriate for age. Cardiovascular: Capillary refill < 3 seconds Patient's skin is warm and dry. Respiratory: Airway is patent Respiratory effort is even, unlabored, Respiratory pattern is regular, symmetrical, Breath sounds are clear bilaterally. GI: No deficits noted. No signs and/or symptoms were reported involving the gastrointestinal system. : No deficits noted. No signs and/or symptoms were reported regarding the genitourinary system. EENT: No deficits noted. No signs and/or symptoms were reported regarding the EENT system. Derm: Skin is intact, is healthy with good turgor, Skin is dry, Skin is normal, Skin temperature is warm. Musculoskeletal: Circulation, motion, and sensation intact. Range of motion: intact in all extremities. Vital Signs: 04 22:33 Weight 57.61 kg; Height 4 ft. 11 in. ; Pain 10/10; vc1 22:36 BP 107 / 75; Pulse 74; Resp 18; Temp 97.3; Pulse Ox 97% ; vc1 22:33 Body Mass Index 25.65 (57.61 kg, 149.86 cm) vc1 22:33 Pain Scale: Adult vc1 ED Course: 22:31 Patient arrived in ED. jj6 22:34 Triage completed. vc1 22:35 Caio Briones PA is PHCP. cp 22:35 Stanley Dukes MD is Attending Physician. cp 22:35 Arm band placed on right wrist. vc1 01/03 00:14 XRAY Knee LEFT 3 view In Process Unspecified. EDMS 00:14 XRAY Tib Fib LEFT In Process Unspecified. EDMS 00:23 Bakari Kim MD is Referral Physician. cp 01:14 Louann Dillard, LAUREL is Primary Nurse. vc1 01:24 Patient has correct armband on for positive identification. Provided Education on: plan vc1 of care; Crutches f/u with ortho. 01:24 No provider procedures requiring assistance completed. Patient did not have IV access vc1 during this emergency room visit. Administered Medications: 01:14 Drug: Acetaminophen-Codeine PO (300 mg-30 mg) 2 tabs PO once; RASS on ADMIN: Combtv4, vc1 Very Agttd3, Agttd2, Rstlss1, AlertClm0, Drwsy-1, Lt Sdtn-2, Mod Sdtn-3, Dp Sdtn-4, UnArsble-5 Route: PO; 01:15 Follow up: Response: Medication administered at discharge. vc1 01:14 Drug: Ibuprofen PO 800 mg PO once Route: PO; vc1 01:16 Follow up: Response: Medication administered at discharge. vc1 Medication: 01:28 VIS not applicable for this client. vc1 Outcome: 00:24 Discharge ordered by . cp 01:27 Discharged to home with crutches, with significant other, vc1 01:27 Condition: stable 01:27 Discharge instructions given to patient, Instructed on discharge instructions, follow up and referral plans. Demonstrated understanding of instructions, follow-up care, 01:30 Patient left the ED. vc1 Signatures: Dispatcher [employer] EDMS Caio Briones PA PA cp Jeffries, Jennifer [id number] Louann Dillard RN RN vc1
[2025-01-03] MEDS ORDERED: IBUPROFEN 400 MG TAB ONE (01:06)
[2025-01-03] MEDS ORDERED: CODEINE 30MG/APAP 300MG TAB ONE (01:06)
[2025-01-03 02:12] VITALS: BP 107/75; TEMP 97.3; O2SAT 97
--- NOTE | 2025-01-03 03:41 | RAD REPORT ---
EXAMINATION: XR Tib Fib Left CLINICAL INDICATION: Female, 44 years old. fall;Pain TECHNIQUE: 2 view radiograph of the left tibia and fibula were obtained. COMPARISON: 03/03/2022 FINDINGS: No evidence of fracture or dislocation. Normal alignment. Mild to moderate suprapatellar ef fusion partially included. No evidence of arthropathy or other focal bone lesion. Soft tissues are unremarkable. IMPRESSION: No acute osseous abnormalities. Mild to moderate suprapatellar effusion partially included.
--- NOTE | 2025-01-03 03:42 | RAD REPORT ---
EXAM: XR Knee Left 3 View HISTORY: [facility] MAIN fall;Pain Bed Name: IW1 COMPARISON: None TECHNIQUE: 3 views of the left knee were obtained. FINDINGS: No knee effusion is seen. There is no evidence of acute fracture or dislocation. No signif icant degenerative changes are seen. No soft tissue swelling or other soft tissue abnormality is present. Incidentally noted fabella. IMPRESSION: No evidence of acute osseous abnormality.
== END 2025-01-03 01:30 | disposition home or self-care (01) ==
LOC: ER 22:29
DX: M25.562 Pain in left knee (principal); M79.662 Pain in left lower leg; W01.198A Fall on same level from slipping, tripping and stumbling with subsequent striking against other object, initial encounter; Z95.0 Presence of cardiac pacemaker
CPT/HCPCS: 99283

== ENCOUNTER 2025-02-05 10:53 | Emergency (ER) | payer OTHER ==
--- NOTE | 2025-02-05 11:19 | RAD REPORT ---
EXAMINATION: Ct Stroke Brain Wo Cont CLINICAL INDICATION: Female, 44 years old.STROKE ALERT TECHNIQUE: Axial CT images from the skull base to the vertex without intravenous contrast using a str anais protocol. Coronal and sagittal reformatted images were created from the data set. One or more of the following dose reduction techniques were used: Automated exposure control, adjustment of the m A and/or kV according to patient size, and/or iterative reconstruction. Unless otherwise specified, incidental findings do not require dedicated imaging follow-up. [id number]. COMPARISON: 08/03/2024 FINDINGS: INTRACRANIAL: No acute intracranial hemorrhage. No hydrocephalus. No mass effect or midline shift. No significant white matter disease. VASCULATURE: No visualized abnormalities in the arteries or dural venous sinuses. SCALP/SKULL: No calvarial fracture identified. No acute soft tissue abnormality. SINUSES: Trace left maxillary sinus thickening. No significant mastoid fluid. IMPRESSION: No acute intracranial abnormality. Conveyed to Dr. Aceves by Dr. Medrano at 1113 on 02/05/25
--- NOTE | 2025-02-05 11:42 | RAD REPORT ---
EXAM: Chest Single View HISTORY: 44 years Female COUGH COMPARISON: 09/10/2024 FINDINGS: LUNGS/PLEURA: The lungs are clear. No pleural effusions or pneumothorax. No pulmonary edema. CARDIAC/MEDIASTINUM: The cardiac silhouette is within normal limits. UPPER ABDOMEN: No significant abnormality. BONES: No acute abnormality. LINES/TUBES/OTHER: Pacemaker present. IMPRESSION: No evidence of acute cardiopulmonary disease.
[2025-02-05 11:49] LABS: Absolute Basophils 0.1 K/uL (0-0.5); Absolute Eosinophils 0.2 K/uL (0-0.5); Absolute Monocytes 0.4 K/uL (0.1-1.3); Basophils % 1.2 % (0-1.3); Eosinophils % 3.1 % (0-4.4); Hematocrit 37.8 % (36.0-45.0); Hemoglobin 13.2 g/dL (12.0-15.0); Lymphocytes % 36.1 % (15.3-44.8); MCH 29.2 pg (27.0-35.0); MCHC 34.9 g/dL (32.0-36.0); MCV 83.5 fL (80-100); MPV 8.5 fL (7.6-11.3); Monocytes % 6.8 % (3.3-12.3); Neutrophils % 52.8 % (41.7-73.7); Nucleated Red Blood Cells % 0.1 % (0-0); Platelets 264 thou/uL (152-406); RBC Red Blood Cell Count 4.53 M/uL (3.86-4.86); Red Cell Distribution Width 13.4 % (12.1-15.2)
--- NOTE | 2025-02-05 11:54 | ER ---
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 Coronavirus screen: Vaccine status: Patient reports receiving the 2nd dose of the covid vaccine. Ebola Screen: No symptoms or risks identified at this time. Initial Sepsis Screen: Does the patient meet any 2 criteria? No. Patient's initial sepsis screen is negative. Does the patient have a suspected source of infection? No. Patient's initial sepsis screen is negative. Risk Assessment: Do you want to hurt yourself or someone else? Patient reports no desire to harm self or others. Onset of symptoms was February 05, 2025 at 10:40. 10:58 Method Of Arrival: Wheelchair me1 10:58 Acuity: LYUBOV 2 me1 10:59 An acute neurological deficit is present. The charge nurse has been notified. The cm10 patient has been moved to a treatment area. Pre-hospital glucose is not applicable to this patient. Triage Assessment: 10:58 The onset of the patients symptoms was February 05, 2025 at 10:40. me1 12:00 General: Appears in no apparent distress. comfortable, Behavior is calm. cm10 12:00 Neuro: Reports numbness. cm10 MANAGER DELI: 10:58 LMP N/A - Hysterectomy, Not me1 Stroke Activation: Symptom onset < 3 hours Physician: ED Attending; Name: Ketan; Notified At: ; Arrived At: Physician: Mid-Level Provider; Name: ; Notified At: ; Arrived At: Physician: [not used]; Name: ; Notified At: ; Arrived At: Physician: [not used]; Name: ; Notified At: ; Arrived At: Physician: [not used]; Name: ; Notified At: ; Arrived At: Historical: - Allergies: 11:03 Adhesives; me1 11:03 Aspirin; me1 11:03 Bactrim; me1 11:03 Benadryl; me1 11:03 cefixime; me1 11:03 Cephalexin; me1 11:03 Cipro IV; me1 11:03 Clindamycin; me1 11:03 coconut oil; me1 11:03 Detrol; me1 11:03 Diltiazem; me1 11:03 Doxycycline; me1 11:03 FISH PRODUCT DERIVATIVES; me1 11:03 HYDROCODONE; me1 11:03 GABAPENTIN; me1 11:03 Iodine; me1 11:03 ivabradine; me1 11:03 Latex; me1 11:03 Levofloxacin; me1 11:03 lithium; me1 11:03 Metoprolol Tartrate; me1 11:03 montelukast; me1 11:03 Morphine; me1 11:03 tramadol; me1 11:03 tolterodine; me1 11:03 PENICILLINS; me1 11:03 Seroquel; me1 11:03 Sulfa (Sulfonamide Antibiotics); me1 11:03 Suprax; me1 - PMHx: 11:03 Anxiety; Atrial fibrillation; Bipolar disorder; COPD; CVA; Seizure; me1 - PSHx: 11:03 hysterectomy; pacemaker; me1 - Immunization history:: Adult Immunizations unknown. - Infectious Disease History:: Denies. - Family history:: not pertinent. - Social history:: Smoking status: unknown. Screenin:16 VAN Screening: Arm Drift: Flaccid or no effort against gravity. Visual Disturbance: No es3 visual disturbance noted. Aphasia: Expressive aphasia noted. Provider notified of +VAN scoring. Neglect: Patient is unable to feel both sides of body being touched at the same time. Provider notified of +VAN scoring. 11:27 Peralta Swallow Protocol Brief Cognitive Screen What is your name? Normal, Where are you es3 right now? Normal, What year is it? Normal. Oral Mechanism Examination Facial Symmetry: Normal, Motion: Normal, Lip Closure: Normal, Oral Mechanism Result: Normal. 3 oz Water Swallow Challenge: Pt able to drink all water without stopping, coughing, choking or throat clearing: No Result: IBRAHIMA LARSEN Notified: Caio Aceves MD. 12:[address] [facility] ED Fall Risk Assessment (Adult) History of falling in the last 3 months, cm10 including since admission No falls in past 3 months (0 pts) Confusion or Disorientation No (0 pts) Intoxicated or Sedated No (0 pts) Impaired Gait Yes (1 pt) Mobility Assist Device Used Yes (1 pt) Altered Elimination No (0 pt) Score/Fall Risk Level 0 - 2 = Low Risk Oriented to surroundings, Maintained a safe environment, Hourly rounding (assess needs \\T\\ fall precautionary measures) done. 12:00 Abuse screen: Denies threats or abuse. Denies injuries from another. Nutritional cm10 screening: No deficits noted. Tuberculosis screening: No symptoms or risk factors identified. Assessment: 11:30 VAN Scoring: Arm Drift: Flaccid/no antigravity Visual Disturbance: No visual cm10 disturbance noted. Aphasia: Expressive aphasia noted. Provider notified of +VAN scoring. Neglect: Patient is unable to feel both sides of body being touched at the same time. Provider notified of +VAN scoring. Peralta Swallow Protocol. TNKase (Tenecteplase) Screening: Contraindications: Is the patient on Aspirin, Heparin, or Warfarin: Yes. 11:30 Alesha Swallow Protocol Exclusion Criteria: Unable to remain alert for testing: No cm10 Exclusion Criteria Result: Proceed Brief Cognitive Screen What is your name? Normal, Oral Mechanism Examination Facial Symmetry: Normal, Motion: Normal, Lip Closure: Normal, Oral Mechanism Result: Normal. 3 oz Water Swallow Challenge: Pt able to drink all water without stopping, coughing, choking or throat clearing: No Result: FAIL Notified: Caio Aceves MD. 12:00 General: Appears in no apparent distress. Behavior is cooperative. Pain: Denies pain. cm10 Neuro: No deficits noted. Level of Consciousness is awake, alert, Oriented to person, place, time, situation, Appropriate for age Reports numbness in right arm, left arm, right leg and left leg weakness in right arm, left arm, right leg and left leg. Respiratory: No deficits noted. Airway is patent Respiratory effort is even, unlabored, Respiratory pattern is regular, symmetrical. Vital Signs: 10:58 BP 116 / 75; Pulse 87; Resp 17; Temp 98.3; Pulse Ox 93% ; Weight 56.7 kg; Height 4 ft. me1 11 in. ; Pain 0/10; 11:30 BP 106 / 61; Pulse 87; Resp 16; Pulse Ox 99% ; cm10 11:45 BP 126 / 77; Pulse 82; Resp 16; Pulse Ox 95% on R/A; cm10 12:00 BP 111 / 77; Pulse 80; Resp 16; Pulse Ox 96% on R/A; cm10 12:15 BP 117 / 80; Pulse 87; Resp 16; Pulse Ox 94% on R/A; cm10 12:30 BP 122 / 86; Pulse 85; Resp 16; Pulse Ox 96% on R/A; cm10 10:58 Body Mass Index 25.25 (56.70 kg, 149.86 cm) me1 10:58 Pain Scale: Adult [facility] [place] NIH Stroke Scale Scores: 11:16 NIHSS Score: 23 es3 11:30 NIHSS Score: 23 cm10 11:30 NIHSS Score: 6 taty ED Course: 10:57 Patient arrived in ED. cj3 10:58 Caio Aceves MD is Attending Physician. [facility] 10:58 Arm band placed on Patient placed in an exam room. me1 11:09 CT Stroke Brain w/o Contrast In Process Unspecified. EDMS 11:18 Triage completed. me1 11:30 Patient has correct armband on for positive identification. Bed in low position. Call cm10 light in reach. Side rails up X2. 11:32 Sobia Rodriguez, RN is Primary Nurse. cm10 11:38 XRAY Chest (1 view) In Process Unspecified. EDMS 12:00 Accessed peripheral vein via ultrasound, utilizing dynamic ultrasound technique Clean \\T\\ cm10 dry. Dressing intact. Good blood return. Flushes easily. 20g right forearm. 12:11 Report given to LAUREL Kenendy at [facility]. cm10 12:15 Provided Education on: Need for transfer. cm10 12:34 No provider procedures requiring assistance completed. Patient admitted, IV remains in cm10 place. 12:50 Carotid Artery Bilateral In Process Unspecified. EDMS Administered Medications: 12:28 Drug: NS 0.9% IV 1000 ml IV at 1000 ml once; to be given as a bolus over 60 minutes cm10 Route: IV; Rate: 1000 ml; Site: right forearm; 12:48 Follow up: Response: No adverse reaction; IV Status: Infusion continued upon transfer; 10 IV Intake: 200ml 12:28 Drug: foLIC Acid IVPB 1 mg IVPB once Route: IVPB; Site: right forearm; cm10 12:34 Follow up: Response: No adverse reaction; IV Status: Completed infusion; IV Intake: cm10 0.2ml 12:28 Drug: Decadron - Dexamethasone IVP 10 mg IVP once Route: IVP; Site: right forearm; cm10 12:34 Follow up: Response: No adverse reaction cm10 12:28 Drug: Famotidine IVP 40 mg IVP once; dilute with 10 mL 0.9% NaCl; give over 2 minutes cm10 Route: IVP; Site: right forearm; 12:34 Follow up: Response: No adverse reaction cm10 Medication: 12:34 VIS not applicable for this client. cm10 Point of Care Testing: Blood Glucose: 11:12 Blood Glucose: 105 mg/dL; cm10 Ranges: Intake: 12:34 IV: 0ml; Total: 0ml. cm10 12:48 IV: 200ml; Total: 200ml. cm10 Outcome: 11:53 ER care complete, transfer ordered by . taty 12:30 Transferred by [facility] . cm10 12:30 Condition: stable 12:30 Instructed on the need for transfer, 12:34 Patient left the ED. cm10 NIH Stroke Scale - NIH Stroke Score Date: 02/05/2025 Time: 11:16 Total Score = 23 10. Dysarthria (speech clarity - read or repeat words) - 1(Mild to Moderate) 11. Extinction and Inattention (visual/tactile/auditory/spatial/personal) - 0(No abnormality) 1a. Level of Consciousness (LOC) - 0(Alert) 1b. Level of Consciousness (LOC) (Month \\T\\ Age) - 0(Both) 1c. LOC Commands (Open \\T\\ Closes Eyes/Finish Opener) - 0(Both) 2. Best Gaze (Lateral Gaze Paresis) - 0(Normal) 3. Visual Field Loss - 0(No visual loss) 4. Facial Palsy - 1(Minor Paralysis) 5a. Left Arm: Motor (10-second hold) - 3(No effort against gravity) 5b. Right Arm: Motor (10-second hold) - 4(No movement) 6a. Left Leg: Motor (5-second hold - always test supine) - 4(No movement) 6b. Right Leg: Motor (5-second hold - always test supine) - 4(No movement) 7. Limb Ataxia (finger/nose \\T\\ heel/briggs - test with eyes open) - 2(Present in two limbs) 8. Sensory Loss (pinprick arms/legs/face) - 2(Severe to total loss) 9. Best Language: Aphasia (description/naming/reading) - 2(Severe aphasia) Initials: es3 NIH Stroke Scale - NIH Stroke Score Date: 02/05/2025 Time: 11:30 Total Score = 23 10. Dysarthria (speech clarity - read or repeat words) - 1(Mild to Moderate) 11. Extinction and Inattention (visual/tactile/auditory/spatial/personal) - 0(No abnormality) 1a. Level of Consciousness (LOC) - 0(Alert) 1b. Level of Consciousness (LOC) (Month \\T\\ Age) - 0(Both) 1c. LOC Commands (Open \\T\\ Closes Eyes/Finish Opener) - 0(Both) 2. Best Gaze (Lateral Gaze Paresis) - 0(Normal) 3. Visual Field Loss - 0(No visual loss) 4. Facial Palsy - 1(Minor Paralysis) 5a. Left Arm: Motor (10-second hold) - 3(No effort against gravity) 5b. Right Arm: Motor (10-second hold) - 4(No movement) 6a. Left Leg: Motor (5-second hold - always test supine) - 4(No movement) 6b. Right Leg: Motor (5-second hold - always test supine) - 4(No movement) 7. Limb Ataxia (finger/nose \\T\\ heel/briggs - test with eyes open) - 2(Present in two limbs) 8. Sensory Loss (pinprick arms/legs/face) - 2(Severe to total loss) 9. Best Language: Aphasia (description/naming/reading) - 2(Severe aphasia) Initials: cm10 NIH Stroke Scale - NIH Stroke Score Date: 02/05/2025 Time: 11:30 Total Score = 6 10. Dysarthria (speech clarity - read or repeat words) - 1(Mild to Moderate) 11. Extinction and Inattention (visual/tactile/auditory/spatial/personal) - 0(No abnormality) 1a. Level of Consciousness (LOC) - 0(Alert) 1b. Level of Consciousness (LOC) (Month \\T\\ Age) - 0(Both) 1c. LOC Commands (Open \\T\\ Closes Eyes/Finish Opener) - 0(Both) 2. Best Gaze (Lateral Gaze Paresis) - 0(Normal) 3. Visual Field Loss - 0(No visual loss) 4. Facial Palsy - 0(Normal) 5a. Left Arm: Motor (10-second hold) - 1(Drift) 5b. Right Arm: Motor (10-second hold) - 0(No drift) 6a. Left Leg: Motor (5-second hold - always test supine) - 1(Drift) 6b. Right Leg: Motor (5-second hold - always test supine) - 0(No drift) 7. Limb Ataxia (finger/nose \\T\\ heel/briggs - test with eyes open) - 2(Present in two limbs) 8. Sensory Loss (pinprick arms/legs/face) - 0(Normal) 9. Best Language: Aphasia (description/naming/reading) - 1(Mild to moderate aphasia) Initials: taty Signatures: Dispatcher [employer] EDMS Caio Aceves MD MD cha Martinez, Clarissa RN RN cm10 Marisela Avelar RN RN me1 Adri Garcia RN RN es3 Toya Mena cj3 Corrections: (The following items were deleted from the chart) 12:46 12:34 In radiology for Carotid Artery Bilateral+US.RAD.BRZ. EDOK EDOK 12:58 11:30 VAN Scoring: Arm Drift: Flaccid/no antigravity Visual Disturbance: No cm10 visual disturbance noted. Aphasia: Expressive aphasia noted. Provider notified of +VAN scoring. cm10 13:00 12:46 Patient left the ED. cm10 cm10
--- NOTE | 2025-02-05 11:54 | EDPHYS ---
Physician Documentation [facility] Name: Jenni Draper Age: 44 yrs Sex: Female : 1980 Arrival Date: 02/05/2025 Time: 10:53 Bed 3 Private MD: WILLY Physician Caio Aceves HPI: 02/05 11:39 This 44 yrs old Female presents to ER via Wheelchair with complaints of taty Trouble Talking, Numbness - BODY. 11:39 The patient presents to the emergency department with weakness of the left upper taty extremity, left lower extremity, right upper extremity, right lower extremity, that is moderate, impaired coordination, left side of the face, a speech or higher order brain function problem, aphasia, that is moderate, difficulty standing, the patient cannot stand, difficult walking, the patient cannot walk, paresthesias of the left lower extremity, left upper extremity, right lower extremity, right upper extremity. Onset: The symptoms/episode began/occurred just prior to arrival, at 10:15. Context: occurred doctors office. Associated signs and symptoms: Pertinent positives: dizziness, headache, paresthesias, weakness. Severity of symptoms: in the emergency department the symptoms are unchanged. Patient's baseline: Neuro: alert and fully oriented. Current symptoms: Currently, the patient is not experiencing any symptoms. The patient has not experienced similar symptoms in the past. 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 LMP N/A - Hysterectomy, Not me1 Historical: - Allergies: 11:03 Adhesives; me1 11:03 Aspirin; me1 11:03 Bactrim; me1 11:03 Benadryl; me1 11:03 cefixime; me1 11:03 Cephalexin; me1 11:03 Cipro IV; me1 11:03 Clindamycin; me1 11:03 coconut oil; me1 11:03 Detrol; me1 11:03 Diltiazem; me1 11:03 Doxycycline; me1 11:03 FISH PRODUCT DERIVATIVES; me1 11:03 HYDROCODONE; me1 11:03 GABAPENTIN; me1 11:03 Iodine; me1 11:03 ivabradine; me1 11:03 Latex; me1 11:03 Levofloxacin; me1 11:03 lithium; me1 11:03 Metoprolol Tartrate; me1 11:03 montelukast; me1 11:03 Morphine; me1 11:03 tramadol; me1 11:03 tolterodine; me1 11:03 PENICILLINS; me1 11:03 Seroquel; me1 11:03 Sulfa (Sulfonamide Antibiotics); me1 11:03 Suprax; me1 - PMHx: 11:03 Anxiety; Atrial fibrillation; Bipolar disorder; COPD; CVA; Seizure; me1 - PSHx: 11:03 hysterectomy; pacemaker; me1 - Immunization history:: Adult Immunizations unknown. - Infectious Disease History:: Denies. - Family history:: not pertinent. - Social history:: Smoking status: unknown. ROS: 11:39 Constitutional: Negative for fever, chills, and weight loss, Eyes: Negative for injury, taty pain, redness, and discharge, ENT: Negative for injury, pain, and discharge, Neck: Negative for injury, pain, and swelling, Cardiovascular: Negative for chest pain, palpitations, and edema, Respiratory: Negative for shortness of breath, cough, wheezing, and pleuritic chest pain, Abdomen/GI: Negative for abdominal pain, nausea, vomiting, diarrhea, and constipation, Back: Negative for injury and pain, : Negative for injury, bleeding, discharge, and swelling, MS/Extremity: Negative for injury and deformity, Skin: Negative for injury, rash, and discoloration, Psych: Negative for depression, anxiety, suicide ideation, homicidal ideation, and hallucinations, Allergy/Immunology: Negative for hives, rash, and allergies, Endocrine: Negative for neck swelling, polydipsia, polyuria, polyphagia, and marked weight changes, Hematologic/Lymphatic: Negative for swollen nodes, abnormal bleeding, and unusual bruising, 11:39 Neuro: Positive for altered mental status, gait disturbance, weakness, of the face, right hand, left hand, right arm, left arm, right leg and left leg, Exam: 11:47 Constitutional: This is a well developed, well nourished patient who is awake, alert, taty and in no acute distress. Head/Face: Normocephalic, atraumatic. Eyes: Pupils equal round and reactive to light, extra-ocular motions intact. Lids and lashes normal. Conjunctiva and sclera are non-icteric and not injected. Cornea within normal limits. Periorbital areas with no swelling, redness, or edema. ENT: Nares patent. No nasal discharge, no septal abnormalities noted. Tympanic membranes are normal and external auditory canals are clear. Oropharynx with no redness, swelling, or masses, exudates, or evidence of obstruction, uvula midline. Mucous membranes moist. Neck: Trachea midline, no thyromegaly or masses palpated, and no cervical lymphadenopathy. Supple, full range of motion without nuchal rigidity, or vertebral point tenderness. No Meningismus. Chest/axilla: Normal chest wall appearance and motion. Nontender with no deformity. No lesions are appreciated. Cardiovascular: Regular rate and rhythm with a normal S1 and S2. No gallops, murmurs, or rubs. Normal PMI, no JVD. No pulse deficits. Respiratory: Lungs have equal breath sounds bilaterally, clear to auscultation and percussion. No rales, rhonchi or wheezes noted. No increased work of breathing, no retractions or nasal flaring. Abdomen/GI: Soft, non-tender, with normal bowel sounds. No distension or tympany. No guarding or rebound. No evidence of tenderness throughout. Back: No spinal tenderness. No costovertebral tenderness. Full range of motion. Skin: Warm, dry with normal turgor. Normal color with no rashes, no lesions, and no evidence of cellulitis. Psych: Awake, alert, with orientation to person, place and time. Behavior, mood, and affect are within normal limits. 11:47 ECG was reviewed by the Attending Physician. 11:47 Musculoskeletal/extremity: ROM: limited active range of motion, in the right arm, left arm, right leg and left leg, DVT Exam: No signs of deep vein thrombosis. no pain, no swelling, no tenderness, negative Homans' sign noted on exam, no appreciated bluish discoloration, no erythema, no increased warmth, 11:47 Neuro: Orientation: is normal, Mentation: is normal, appropriate for stated age, no acute changes, Memory: is normal, appropriate for stated age, no acute changes, Cranial nerves: extraocular movements are intact, facial droop noted on left, with forehead spared. Cerebellar function: is grossly normal, Motor: moves all fours, Gait: not tested. Deep tendon reflexes are 1 (trace) + in the bilateral brachioradialis, bicep, tricep and patellar and Achilles tendons, Vital Signs: 10:58 BP 116 / 75; Pulse 87; Resp 17; Temp 98.3; Pulse Ox 93% ; Weight 56.7 kg; Height 4 ft. me1 11 in. ; Pain 0/10; 11:30 BP 106 / 61; Pulse 87; Resp 16; Pulse Ox 99% ; cm10 11:45 BP 126 / 77; Pulse 82; Resp 16; Pulse Ox 95% on R/A; cm10 12:00 BP 111 / 77; Pulse 80; Resp 16; Pulse Ox 96% on R/A; cm10 12:15 BP 117 / 80; Pulse 87; Resp 16; Pulse Ox 94% on R/A; cm10 12:30 BP 122 / 86; Pulse 85; Resp 16; Pulse Ox 96% on R/A; cm10 10:58 Body Mass Index 25.25 (56.70 kg, 149.86 cm) me1 10:58 Pain Scale: Adult me1 NIH Stroke Scale Scores: 11:16 NIHSS Score: 23 es3 11:30 NIHSS Score: 23 cm10 11:30 NIHSS Score: 6 taty MDM: 10:59 Medical Screening Exam initiated [facility] 11:44 Data reviewed: vital signs, nurses notes, lab test result(s), EKG, radiologic studies, [facility] CT scan, plain films. Consideration of Admission/Observation Escalation of care including admission/observation considered. I considered the following discharge prescriptions or medication management in the emergency department Medications were administered in the Emergency Department. See MAR. Independent interpretation of the following test(s) in the Emergency Department EKG: See my EKG interpretation above. Test considered but Not performed: MRI: no mri , pm , no cta's allergic to iodine. Historians other than the Patient: Spouse/Significant Other: . Care significantly affected by the following chronic conditions: Hypertension, Congestive Heart Failure, Obesity, pacemaker. 02/05 11:03 Order name: Basic Metabolic Panel 02/05 11:03 Order name: CBC with Diff 02/05 11:03 Order name: LFT's [facility] 02/05 11:03 Order name: Magnesium [facility] 02/05 11:03 Order name: NT PRO-BNP [facility] 02/05 11:03 Order name: PT-INR [facility] 02/05 11:03 Order name: Troponin HS [facility] 02/05 11:03 Order name: CRP [facility] 02/05 11:24 Order name: Glucose, Ancillary Testing [facility] 02/05 11:45 Order name: PTT, Activated Partial Thromb [facility] 02/05 11:47 Order name: Digoxin Level [facility] 02/05 11:03 Order name: XRAY Chest (1 view) [facility] 02/05 11:03 Order name: CT Stroke Brain w/o Contrast [facility] 02/05 12:45 Order name: Carotid Artery Bilateral [facility] 02/05 11:03 Order name: Cardiac monitoring; Complete Time: :34 [facility] 02/05 11:03 Order name: EKG - Nurse/Tech; Complete Time: :34 [facility] 02/05 11:03 Order name: IV Saline Lock; Complete Time: 12:00 [facility] 02/05 11:03 Order name: Labs collected and sent; Complete Time: [facility] 02/05 11:03 Order name: O2 Per Protocol; Complete Time: [facility] 02/05 11:03 Order name: O2 Sat Monitoring; Complete Time: : [facility] 02/05 11:57 Order name: Labs - recollect needed: blue top only- overfilled; Complete Time: 12:28 iw EC:47 Rate is 88 beats/min. Rhythm is regular. QRS [place] is Normal. AL interval is normal. QRS taty interval is normal. QT interval is normal. No Q waves. T waves are Normal. No ST changes noted. Clinical impression: Normal ECG and No evidence of ischemia. Interpreted by me. Reviewed by me. Administered Medications: 12:28 Drug: NS 0.9% IV 1000 ml IV at 1000 ml once; to be given as a bolus over 60 minutes cm10 Route: IV; Rate: 1000 ml; Site: right forearm; 12:48 Follow up: Response: No adverse reaction; IV Status: Infusion continued upon transfer; cm10 IV Intake: 200ml 12:28 Drug: foLIC Acid IVPB 1 mg IVPB once Route: IVPB; Site: right forearm; cm10 12:34 Follow up: Response: No adverse reaction; IV Status: Completed infusion; IV Intake: cm10 0.2ml 12:28 Drug: Decadron - Dexamethasone IVP 10 mg IVP once Route: IVP; Site: right forearm; cm10 12:34 Follow up: Response: No adverse reaction cm10 12:28 Drug: Famotidine IVP 40 mg IVP once; dilute with 10 mL 0.9% NaCl; give over 2 minutes cm10 Route: IVP; Site: right forearm; 12:34 Follow up: Response: No adverse reaction cm10 Point of Care Testing: Blood Glucose: 11:12 Blood Glucose: 105 mg/dL; cm10 Ranges: Critical Glucose Levels:Adult <50 mg/dl or >400 mg/dl <40 mg/dl or >180 mg/dl Disposition Summary: 02/05/25 11:53 Transfer Ordered Notes: Transfer Location: [facility] taty Reason: Higher level of care taty Condition: Fair taty Problem: new taty Symptoms: are unchanged taty Accepting Physician: to neuro icu, 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 Total time: 50 minutes NIH Stroke Scale - NIH Stroke Score Date: 02/05/2025 Time: 11:16 Total Score = 23 10. Dysarthria (speech clarity - read or repeat words) - 1(Mild to Moderate) 11. Extinction and Inattention (visual/tactile/auditory/spatial/personal) - 0(No abnormality) 1a. Level of Consciousness (LOC) - 0(Alert) 1b. Level of Consciousness (LOC) (Month \T\ Age) - 0(Both) 1c. LOC Commands (Open \T\ Closes Eyes/Head Of Partner Development) - 0(Both) 2. Best Gaze (Lateral Gaze Paresis) - 0(Normal) 3. Visual Field Loss - 0(No visual loss) 4. Facial Palsy - 1(Minor Paralysis) 5a. Left Arm: Motor (10-second hold) - 3(No effort against gravity) 5b. Right Arm: Motor (10-second hold) - 4(No movement) 6a. Left Leg: Motor (5-second hold - always test supine) - 4(No movement) 6b. Right Leg: Motor (5-second hold - always test supine) - 4(No movement) 7. Limb Ataxia (finger/nose \T\ heel/briggs - test with eyes open) - 2(Present in two limbs) 8. Sensory Loss (pinprick arms/legs/face) - 2(Severe to total loss) 9. Best Language: Aphasia (description/naming/reading) - 2(Severe aphasia) Initials: es3 NIH Stroke Scale - NIH Stroke Score Date: 02/05/2025 Time: 11:30 Total Score = 23 10. Dysarthria (speech clarity - read or repeat words) - 1(Mild to Moderate) 11. Extinction and Inattention (visual/tactile/auditory/spatial/personal) - 0(No abnormality) 1a. Level of Consciousness (LOC) - 0(Alert) 1b. Level of Consciousness (LOC) (Month \T\ Age) - 0(Both) 1c. LOC Commands (Open \T\ Closes Eyes/Head Of Partner Development) - 0(Both) 2. Best Gaze (Lateral Gaze Paresis) - 0(Normal) 3. Visual Field Loss - 0(No visual loss) 4. Facial Palsy - 1(Minor Paralysis) 5a. Left Arm: Motor (10-second hold) - 3(No effort against gravity) 5b. Right Arm: Motor (10-second hold) - 4(No movement) 6a. Left Leg: Motor (5-second hold - always test supine) - 4(No movement) 6b. Right Leg: Motor (5-second hold - always test supine) - 4(No movement) 7. Limb Ataxia (finger/nose \T\ heel/briggs - test with eyes open) - 2(Present in two limbs) 8. Sensory Loss (pinprick arms/legs/face) - 2(Severe to total loss) 9. Best Language: Aphasia (description/naming/reading) - 2(Severe aphasia) Initials: cm10 NIH Stroke Scale - NIH Stroke Score Date: 02/05/2025 Time: 11:30 Total Score = 6 10. Dysarthria (speech clarity - read or repeat words) - 1(Mild to Moderate) 11. Extinction and Inattention (visual/tactile/auditory/spatial/personal) - 0(No abnormality) 1a. Level of Consciousness (LOC) - 0(Alert) 1b. Level of Consciousness (LOC) (Month \T\ Age) - 0(Both) 1c. LOC Commands (Open \T\ Closes Eyes/Head Of Partner Development) - 0(Both) 2. Best Gaze (Lateral Gaze Paresis) - 0(Normal) 3. Visual Field Loss - 0(No visual loss) 4. Facial Palsy - 0(Normal) 5a. Left Arm: Motor (10-second hold) - 1(Drift) 5b. Right Arm: Motor (10-second hold) - 0(No drift) 6a. Left Leg: Motor (5-second hold - always test supine) - 1(Drift) 6b. Right Leg: Motor (5-second hold - always test supine) - 0(No drift) 7. Limb Ataxia (finger/nose \T\ heel/briggs - test with eyes open) - 2(Present in two limbs) 8. Sensory Loss (pinprick arms/legs/face) - 0(Normal) 9. Best Language: Aphasia (description/naming/reading) - 1(Mild to moderate aphasia) Initials: taty Signatures: Dispatcher [employer] EDCaio Zhong MD MD cha Williams, Irene, Sobia Christianson RN, RN RN cm10 Marisela Avelar RN RN me1 Corrections: (The following items were deleted from the chart) 11:04 11:04 CT-STROKE BRAIN W/O CONTRAST+CT.RAD.BRZ ordered. EDMS EDMS 11:45 11:04 PTT, ACTIVATED+COAG.LAB.BRZ ordered. EDMS EDMS 11:47 11:32 DIGOXIN+C.LAB.BRZ ordered. EDMS EDMS 11:47 11:33 DIGOXIN+C.LAB.BRZ ordered. EDMS EDMS 12:46 11:24 Carotid Artery Bilateral+US.RAD.BRZ ordered. EDMS EDMS 12:46 11:53 to neuro icu, [facility] taty 10
[2025-02-05 12:14] LABS: ALT/SGPT 77 U/L (13-56); Albumin 4.2 g/dL (3.4-5.0); Albumin/Globulin Ratio 1.2 (1.1-1.8); Alkaline Phosphatase 129 U/L (45-117); Anion Gap 10.6 mEq/L (5.0-15.0); BUN Blood Urea Nitrogen 12 mg/dL (7-18); Bicarbonate 27 mEq/L (21-32); Bilirubin Total 0.2 mg/dL (0.2-1.0); Globulin 3.4 g/dL (2.3-3.5); Glomerular Filtration Rate 78 ml/min (=/>90); Glucose Level 112 mg/dL (74-106); NT PRO-BNP 93 pg/mL (<125); Protein, Total 7.6 g/dL (6.4-8.2); Sodium Level 141 mEq/L (136-145); Troponin High Sensitivity 3.2 pg/mL (<58.9)
[2025-02-05 12:17] LABS: AST/SGOT 54 U/L (15-37); Bilirubin Direct < 0.2 mg/dL (0-0.2); C-Reactive Protein < 2.90 mg/L (<3.00); Magnesium 2.3 mg/dL (1.6-2.4); Potassium 4.6 mEq/L (3.5-5.1)
[2025-02-05] MEDS ORDERED: FOLIC ACID 5 MG/ML VIAL ONE (12:18)
[2025-02-05] MEDS ORDERED: dexAMETHasone 10 MG/ML VIAL ONE (12:18)
[2025-02-05] MEDS ORDERED: NA CHLORIDE 0.9% 1,000 ML ONE (12:19)
[2025-02-05] MEDS ORDERED: FAMOTIDINE 20 MG/2 ML VIAL IV ONE (12:19)
[2025-02-05 12:39] LABS: PTT, Activated Partial Thromb 37.6 SECONDS (27.2-37.4); Protime INR 1.52
--- NOTE | 2025-02-05 12:59 | RAD REPORT ---
EXAMINATION: US CAROTID DUPLEX CLINICAL INDICATION: , 44 years old. STROKE. TECHNIQUE: Real-time grayscale, color flow and spectral Doppler sonographic images were obtained of t extracranial carotid system using a linear transducer. [id number]. COMPARISON: No prior exam. FINDINGS: RIGHT: Common carotid artery: 81 cm/s Internal carotid artery: 126 cm/s External carotid artery: 92 cm/s Right ICA/CCA ratio: 1.6 Plaque None Vertebral artery Antegrade LEFT: Common carotid artery: 73 cm/s Internal carotid artery: 107 cm/s External carotid artery: 75 cm/s lEFT ICA/CCA ratio: 1.5 Plaque None Vertebral artery Antegrade IMPRESSION: No hemodynamically significant stenosis (greater than 50%) within the extracranial internal carotid a [facility].
[2025-02-05 13:03] VITALS: BP 116/75; TEMP 98.3; O2SAT 93
--- NOTE | 2025-02-10 17:03 | EKG ---
Test Date: 2025-02-05 Test Time: 11:16:13 Property Disposal Officer: YAA MEASUREMENT RESULTS: Intervals: Rate: 88 WV: 138 QRSD: 90 QT: 364 QTc: 440 [place]: P: 55 WV: 138 QRS: 6 T: 37 INTERPRETIVE STATEMENTS: Normal sinus rhythm Normal ECG Compared to ECG 09/10/2024 20:15:06 No significant changes Electronically Signed On 02-10-25 16:56:33 CDT by García Serrano
== END 2025-02-05 12:46 | disposition short-term general hospital (02) ==
LOC: ER 10:53
DX: I63.9 Cerebral infarction, unspecified (principal); R29.723 NIHSS score 23; Z95.0 Presence of cardiac pacemaker; Z79.01 Long term (current) use of anticoagulants; Z86.73 Personal history of transient ischemic attack (TIA), and cerebral infarction without residual deficits
CPT/HCPCS: 85025; 80048; 36415; 83735; 85610; 80162; 82947; 80076; 85730; 84484; 83880; 86140; 70450; 71045; 93880; J1100; J7030; 93005; 96374; 96375; 99285

== ENCOUNTER 2025-02-17 22:35 | Emergency (ER) | payer OTHER ==
[2025-02-17] MEDS ORDERED: METOCLOPRAMIDE 10 MG/2mL INJ ONE (23:05)
[2025-02-17] MEDS ORDERED: DICYCLOMINE HCL 20 MG/2 ML AMP IM ONE (23:05)
[2025-02-17] MEDS ORDERED: droPERidol 5 MG/2 ML VIAL ONE (23:05)
[2025-02-17] MEDS ORDERED: LORazepam 2 MG/ML VIAL ONE (23:05)
[2025-02-17] MEDS ORDERED: NA CHLORIDE 0.9% 100 ML ONE (23:06)
[2025-02-17] MEDS ORDERED: NA CHLORIDE 0.9% 1,000 ML ONE (23:06)
[2025-02-17 23:28] LABS: Absolute Eosinophils 0.1 K/uL (0-0.5); Absolute Lymphocytes (CBC) 2.3 K/uL (0.7-4.9); Absolute Monocytes 0.5 K/uL (0.1-1.3); Absolute Neutrophil 2.7 K/uL (1.8-8.0); Basophils % 0.7 % (0-1.3); Eosinophils % 2.2 % (0-4.4); Hematocrit 35.4 % (36.0-45.0); Hemoglobin 12.2 g/dL (12.0-15.0); Lymphocytes % 41.3 % (15.3-44.8); MCH 28.5 pg (27.0-35.0); MCHC 34.4 g/dL (32.0-36.0); Monocytes % 8.2 % (3.3-12.3); Neutrophils % 47.6 % (41.7-73.7); Nucleated Red Blood Cells % 0.1 % (0-0); Platelets 282 thou/uL (152-406); RBC Red Blood Cell Count 4.27 M/uL (3.86-4.86); Red Cell Distribution Width 13.7 % (12.1-15.2)
[2025-02-17 23:57] LABS: Albumin 3.7 g/dL (3.4-5.0); Anion Gap 9.7 mEq/L (5.0-15.0); Bilirubin Total 0.2 mg/dL (0.2-1.0); Globulin 3.6 g/dL (2.3-3.5); Potassium 3.7 mEq/L (3.5-5.1); Protein, Total 7.3 g/dL (6.4-8.2)
--- NOTE | 2025-02-18 00:26 | RAD REPORT ---
EXAM: CT Abdomen and Pelvis Without Intravenous Contrast CLINICAL HISTORY: The patient is 44 years old and is Female; ABD PAIN TECHNIQUE: Axial computed tomography images of the abdomen and pelvis without intravenous contrast. Sagittal and coronal reformatted images were created and reviewed. This CT exam was performed using one or more of the following dose reduction techniques: automated exposure control, adjustment of the m A and/or kV according to patient size, and/or use of iterative reconstruction technique. COMPARISON: No relevant prior studies available. FINDINGS: LUNG BASES: Unremarkable. No mass. No consolidation. ABDOMEN: LIVER: Homogeneous without focal mass. GALLBLADDER AND BILE DUCTS: Surgical clips are present in the right upper quadrant, consistent wi th previous cholecystectomy. PANCREAS: Unremarkable. No ductal dilation. SPLEEN: Unremarkable. ADRENALS: Unremarkable. No mass. KIDNEYS AND URETERS: Right intrarenal calcifications are present. There is no hydronephrosis or h ydroureter of either kidney. There is no perinephric or periureteral stranding. STOMACH AND BOWEL: The stomach is distended with food contents. The small bowel is normal in [place]. Stool is present throughout the colon. There is no mucosal thickening or evidence of obstruction. PELVIS: APPENDIX: The appendix is normal in caliber without surrounding inflammation. BLADDER: Unremarkable. No stones. REPRODUCTIVE: The patient is status post hysterectomy. ABDOMEN and PELVIS: INTRAPERITONEAL SPACE: Unremarkable. No free air. No significant fluid collection. BONES/JOINTS: No acute fracture. SOFT TISSUES: The soft tissues are normal. VASCULATURE: Unremarkable. No abdominal aortic aneurysm. LYMPH NODES: Unremarkable. No enlarged lymph nodes. IMPRESSION: Right nephrolithiasis without obstruction. Electronically signed by: Elodia Villavicencio MD 02/18/2025 12:23 AM [facility] Due to temporary technical issues with the PACS/Datagu[employer] reporting system, reports are being gopal d by the in-house radiologist without review as a courtesy to ensure prompt reporting the interpreting radiologist is fully responsible for the content of the report. Transcribed Date/Time: 02/18/2025 12:26 AM
[2025-02-18 01:21] LABS: Specific Gravity 1.009 (1.005-1.030)
[2025-02-18 01:25] LABS: Renal Epithelial <5 /HPF (None Seen); Specific Gravity 1.009 (1.005-1.030); Sqamous Epithelial <5 /HPF (None Seen); Urine Bacteria None Seen /HPF (<20); Urine Bilirubin NEGATIVE (Negative); Urine Blood Negative (Negative); Urine Clarity Turbid (Clear); Urine Color Colorless (Yellow); Urine Culture Reflex Order NOT NEEDED; Urine Glucose NEGATIVE (Negative); Urine Ketones NEGATIVE (Negative); Urine Microscopic Reflex YN ORDER UMIC; Urine Mucus Slight /HPF (None Seen); Urine Nitrite NEGATIVE (Negative); Urine Protein NEGATIVE (Negative); Urine RBC <5 /HPF (None Seen); Urine Urobilinogen Normal (Normal); Urine WBC <5 /HPF (<5)
--- NOTE | 2025-02-18 01:40 | ER ---
Nurse's Notes [facility] Name: Jenni Draper Age: 44 yrs Sex: Female : 1980 Arrival Date: 02/17/2025 Time: 22:35 Bed 4 Private MD: Diagnosis: Anxiety disorder, unspecified;Acute anxiety attack, acute diffuse abdominal pain Presentation: 02/17 23:00 Chief complaint: Patient states: Patient present to ER c/o RUQ abdominal pain 07/04 tb4 that began 1999 on 02/17/25. Coronavirus screen: Client denies travel out of the [place] in the last 14 days. Ebola Screen: No symptoms or risks identified at this time. Initial Sepsis Screen:. Risk Assessment: Do you want to hurt yourself or someone else? Patient reports no desire to harm self or others. Onset of symptoms was February 17, 2025 at 20:00. Activity prior to arrival: None. Mechanism of Injury: No Mechanism of Injury. 23:00 Method Of Arrival: Wheelchair tb4 23:00 Acuity: LYUBOV 3 tb4 02/18 02:01 Initial Sepsis Screen: Does the patient meet any 2 criteria? No. Patient's initial kd3 sepsis screen is negative. Does the patient have a suspected source of infection? No. Patient's initial sepsis screen is negative. Triage Assessment: 02/17 23:10 General: Appears distressed, uncomfortable, Behavior is agitated, crying. Pain: tb4 Complains of pain in right upper quadrant and left lower quadrant Pain does not radiate. Pain at worst was 10 out of 10 on a pain scale. Quality of pain is described as crushing, sharp, tender, Pain began suddenly, 3 hours ago. Is continuous. EENT: No deficits noted. Neuro: No deficits noted. Foss Agitation-Sedation Scale (RASS):. GI: Abdomen is flat, round Guarding noted in right upper quadrant and left lower quadrant Reports upper abdominal pain, cramping, nausea, Pain is 10 out of 10 on a pain scale. vomiting. : No deficits noted. Musculoskeletal: No deficits noted. Historical: - Allergies: 23:08 Adhesives; tb4 23:08 Bactrim; tb4 23:08 Benadryl; tb4 23:08 Aspirin; tb4 23:08 Cephalexin; tb4 23:08 Diltiazem; tb4 23:08 GABAPENTIN; tb4 23:08 Iodine; tb4 23:08 FISH PRODUCT DERIVATIVES; tb4 23:08 Detrol; tb4 23:08 coconut oil; tb4 23:08 Clindamycin; tb4 23:08 Doxycycline; tb4 23:08 Levofloxacin; tb4 23:08 lithium; tb4 23:08 Morphine; tb4 23:08 PENICILLINS; tb4 23:08 montelukast; tb4 23:08 Metoprolol Tartrate; tb4 23:08 HYDROCODONE; tb4 23:08 ivabradine; tb4 23:08 Latex; tb4 23:08 Sulfa (Sulfonamide Antibiotics); tb4 23:08 tolterodine; tb4 23:08 Suprax; tb4 23:08 Cipro IV; tb4 23:08 cefixime; tb4 23:08 tramadol; tb4 23:08 Seroquel; tb4 - Immunization history:: Adult Immunizations unknown. - Infectious Disease History:: Denies. - Social history:: Smoking status: Patient reports the use of cigarette tobacco products, Patient denies., Patient uses Patient/guardian denies using alcohol, street drugs, IV drugs, tobacco products. - Family history:: not pertinent. - Code Status:: Full code. Screenin:20 [facility] ED Fall Risk Assessment (Adult). Abuse screen: Denies threats or abuse. Denies kd3 injuries from another. 23:20 [facility] ED Fall Risk Assessment (Adult) History of falling in the last 3 months, tb4 including since admission No falls in past 3 months (0 pts) Confusion or Disorientation No (0 pts) Intoxicated or Sedated No (0 pts) Impaired Gait Yes (1 pt) Mobility Assist Device Used No (0 pt) Altered Elimination No (0 pt) Score/Fall Risk Level 0 - 2 = Low Risk Oriented to surroundings, Maintained a safe environment, Hourly rounding (assess needs \T\ fall precautionary measures) done, Used gait belt as appropriate. Abuse screen: Denies threats or abuse. Nutritional screening: No deficits noted. Tuberculosis screening: No symptoms or risk factors identified. Assessment: 23:19 General: Appears uncomfortable, Behavior is cooperative, anxious, crying, restless. kd3 Pain: Complains of pain in right lower quadrant. Neuro: Level of Consciousness is awake, alert, obeys commands, Oriented to person, place, time, situation, Appropriate for age. Cardiovascular: Capillary refill < 3 seconds Patient's skin is warm and dry. GI: Bowel sounds present X 4 quads. 23:34 Reassessment: Patient states pain is 8/10 after medication.. 4 02/18 00:57 Reassessment: Patient appears in no apparent distress at this time. Patient and/or bm8 family updated on plan of care and expected duration. Pain level reassessed. Patient is alert, oriented x 3, equal unlabored respirations, skin warm/dry/pink. Patient states feeling better. Patient states symptoms have improved. Vital Signs: 02/17 23:00 BP 113 / 67; Pulse 91; Resp 20; Temp 98.2; Pulse Ox 99% on R/A; Weight 57.61 kg; Height tb4 4 ft. 11 in. ; Pain 10/10; 23:02 Temp 98.2(O); kd3 23:23 BP 112 / 86; Pulse 86; Resp 18; Pulse Ox 97% on R/A; Pain 10/10; tb4 23:50 BP 90 / 62; Pulse 87; Resp 19; Pulse Ox 91% on R/A; kd3 23:56 BP 90 / 62; Pulse 90; Resp 19; Pulse Ox 96% on R/A; 3 02/18 00:57 BP 102 / 68; Pulse 72; Resp 17; Temp 98.2; Pulse Ox 94% ; Pain 4/10; bm8 02:01 BP 93 / 59; Pulse 78; Resp 19; Pulse Ox 98% on R/A; 3 02/17 23:00 Body Mass Index 25.65 (57.61 kg, 149.86 cm) 4 02/17 23:00 Pain Scale: Adult tb4 23:23 Pain Scale: Adult 4 02/18 00:57 Pain Scale: Adult bm8 Kvng Coma Score: 00:57 Eye Response: spontaneous(4). Motor Response: obeys commands(6). Verbal Response: bm8 oriented(5). Total: 15. 19:08 Eye Response: spontaneous(4). Motor Response: obeys commands(6). Verbal Response: sp4 oriented(5). Total: 15. ED Course: 02/17 22:41 Patient arrived in ED. cj3 22:44 Deni Kirk MD is Attending Physician. sp4 22:55 Horacio Gonzalez, RN is Primary Nurse. bm8 23:08 Triage completed. tb4 23:18 Inserted saline lock: 22 gauge in left hand, using aseptic technique. Blood collected. kd3 Flushed with 10 mL NS. 23:18 CBC with Diff Sent. kd3 23:18 CMP Sent. kd3 23:18 Lipase Sent. kd3 23:18 Initial lab(s) drawn, by ED staff, sent to lab. bm8 23:18 Patient maintains SpO2 saturation greater than 95% on room air. bm8 23:20 Appears tearful. tb4 23:20 Patient has correct armband on for positive identification. Allergy band placed. Placed tb4 in gown. Bed in low position. Call light in reach. Side rails up X2. Adult w/ patient. Provided Education on: [place] patient to room, call light. Lights dimmed. Warm blanket given. Head of bed elevated. 23:35 Abdomen In Process Unspecified. EDMS 23:51 No provider procedures requiring assistance completed. kd3 23:57 Arm band placed on right wrist. kd3 02/18 01:16 UA Rfx Carlos Cult if indicated Sent. tb4 01:16 Test, Urine Sent. tb4 02:01 IV discontinued, intact, bleeding controlled, No redness/swelling at site. Pressure kd3 dressing applied. Administered Medications: 02/17 23:18 Drug: Droperidol IVP 2.5 mg IVP once Route: IVP; Site: left hand; kd3 02/18 00:58 Follow up: Response: No adverse reaction [facility] 02/17 23:18 Drug: NS 0.9% IV 1000 ml IV at 1 bolus Per protocol; to be given as a bolus over 60 kd3 minutes Route: IV; Rate: 1 bolus; Site: left hand; 02/18 00:57 Follow up: Response: No adverse reaction; IV Status: Completed infusion [facility] 02/17 23:19 Drug: Ativan IVP 1 mg IVP once Route: IVP; Site: left hand; kd3 02/18 00:58 Follow up: Response: No adverse reaction [facility] 02/17 23:19 Drug: Dicyclomine IM 20 mg IM once Route: IM; Site: left gluteus; kd3 02/18 00:58 Follow up: Response: No adverse reaction bm8 02/17 23:19 Drug: metoCLOPramide IVP 10 mg IVP once; over 1 to 2 minutes Route: IVP; Site: left kd3 hand; 02/18 00:58 Follow up: Response: No adverse reaction bm8 Medication: 02/17 23:57 VIS not applicable for this client. kd3 Outcome: 02/18 01:39 Discharge ordered by . sp4 02:01 Discharged to home ambulatory, with family, kd3 02:01 Condition: stable 02:01 Discharge instructions given to patient, family, Instructed on discharge instructions, follow up and referral plans. Demonstrated understanding of instructions, follow-up care, medications, Prescriptions given X 1, 02:02 Patient left the ED. kd3 Signatures: Dispatcher [employer] EDMS Christi Castanon RN RN kd3 Deni Kirk MD MD sp4 Horacio Gonzalez RN RN bm8 Toya Mena 3 Carlie Cain, RN RN tb4 Corrections: (The following items were deleted from the chart) 02/17 23:11 23:08 PMHx: Atrial fibrillation; tb4 tb4 23:11 23:08 PMHx: Seizure; tb4 tb4 23:11 23:08 PMHx: COPD; tb4 tb4 23:11 23:08 PMHx: Anxiety; tb4 tb4 23:11 23:08 PMHx: Bipolar disorder; tb4 tb4 23:11 23:08 PMHx: CVA; tb4 tb4 23:11 23:08 PSHx: pacemaker; tb4 tb4 23:11 23:08 PSHx: hysterectomy; tb4 tb4 02/18 00:57 00:57 Reassessment: Patient appears in no apparent distress at this time. Patient bm8 and/or family updated on plan of care and expected duration. Pain level reassessed. Patient is alert, oriented x 3, equal unlabored respirations, skin warm/dry/pink. Patient states feeling better. Patient states symptoms have improved. bm8 00:59 00:57 Initial lab(s) drawn, by ED staff, sent to lab. bm8 bm8
--- NOTE | 2025-02-18 01:40 | EDPHYS ---
Physician Documentation [facility] Name: Jenni Draper Age: 44 yrs Sex: Female : 1980 Arrival Date: 02/17/2025 Time: 22:35 Bed 4 Private MD: ED Physician Deni Kirk HPI: 02/17 22:44 This 44 yrs old Female presents to ER via Unassigned with complaints of sp4 Abdominal Pain, Nausea/Vomiting. 02/18 19:08 44-year-old female presents with complaint of abdominal pain nausea vomiting.. Reports sp4 diffuse abdominal pain.. On arrival patient is very anxious. Historical: - Allergies: 02/17 23:08 Adhesives; tb4 23:08 Bactrim; tb4 23:08 Benadryl; tb4 23:08 Aspirin; tb4 23:08 Cephalexin; tb4 23:08 Diltiazem; tb4 23:08 GABAPENTIN; tb4 23:08 Iodine; tb4 23:08 FISH PRODUCT DERIVATIVES; tb4 23:08 Detrol; tb4 23:08 coconut oil; tb4 23:08 Clindamycin; tb4 23:08 Doxycycline; tb4 23:08 Levofloxacin; tb4 23:08 lithium; tb4 23:08 Morphine; tb4 23:08 PENICILLINS; tb4 23:08 montelukast; tb4 23:08 Metoprolol Tartrate; tb4 23:08 HYDROCODONE; tb4 23:08 ivabradine; tb4 23:08 Latex; tb4 23:08 Sulfa (Sulfonamide Antibiotics); tb4 23:08 tolterodine; tb4 23:08 Suprax; tb4 23:08 Cipro IV; tb4 23:08 cefixime; tb4 23:08 tramadol; tb4 23:08 Seroquel; tb4 - Immunization history:: Adult Immunizations unknown. - Infectious Disease History:: Denies. - Social history:: Smoking status: Patient reports the use of cigarette tobacco products, Patient denies., Patient uses Patient/guardian denies using alcohol, street drugs, IV drugs, tobacco products. - Family history:: not pertinent. - Code Status:: Full code. ROS: 02/18 19:08 Constitutional: Negative for fever, chills, and weight loss, positive abdominal pain, sp4 positive vomiting All other systems are negative, Exam: 19:08 Constitutional: This is a well developed, well nourished patient who is awake, alert, sp4 moderate to severe anxiety on arrival Head/Face: Normocephalic, atraumatic. Eyes: Pupils equal round and reactive to light, extra-ocular motions intact. Lids and lashes normal. Conjunctiva and sclera are not injected. Cornea within normal limits. Periorbital areas with no swelling, redness, or edema. ENT: Nares patent. No nasal discharge, no septal abnormalities noted. Tympanic membranes are normal and external auditory canals are clear. Oropharynx with no redness, swelling, or masses, exudates, or evidence of obstruction, uvula midline. Mucous membranes moist. Neck: Trachea midline, no thyromegaly or masses palpated, and no cervical lymphadenopathy. Supple, full range of motion without nuchal rigidity, or vertebral point tenderness. Chest/axilla: Normal chest wall appearance and motion. Nontender with no deformity. No lesions are appreciated. Cardiovascular: Regular rate and rhythm with a normal S1 and S2. No gallops, murmurs, or rubs. Normal PMI, no JVD. No pulse deficits. Respiratory: Lungs have equal breath sounds bilaterally, clear to auscultation and percussion. No rales, rhonchi or wheezes noted. No increased work of breathing, no retractions or nasal flaring. Abdomen/GI: Soft, with normal bowel sounds. No distension or tympany. No guarding or rebound. No evidence of tenderness throughout. Back: No spinal tenderness. No costovertebral tenderness. Skin: Warm, dry with normal turgor. Normal color with no rashes, no lesions, and no evidence of cellulitis. MS/ Extremity: Pulses equal, no cyanosis. Neurovascular intact. Full, normal range of motion. Neuro: Awake and alert, GCS 15, oriented to person, place, time, and situation. Cranial nerves II-XII grossly intact. Motor strength 5/5 in all extremities. Sensory grossly intact. Psych: Awake, alert, with orientation to person, place and time. Moderate to severe anxiety on arrival Vital Signs: 02/17 23:00 BP 113 / 67; Pulse 91; Resp 20; Temp 98.2; Pulse Ox 99% on R/A; Weight 57.61 kg; Height tb4 4 ft. 11 in. ; Pain 10/10; 23:02 Temp 98.2(O); kd3 23:23 BP 112 / 86; Pulse 86; Resp 18; Pulse Ox 97% on R/A; Pain 10/10; tb4 23:50 BP 90 / 62; Pulse 87; Resp 19; Pulse Ox 91% on R/A; kd3 23:56 BP 90 / 62; Pulse 90; Resp 19; Pulse Ox 96% on R/A; kd3 02/18 00:57 BP 102 / 68; Pulse 72; Resp 17; Temp 98.2; Pulse Ox 94% ; Pain 4/10; bm8 02:01 BP 93 / 59; Pulse 78; Resp 19; Pulse Ox 98% on R/A; kd3 02/17 23:00 Body Mass Index 25.65 (57.61 kg, 149.86 cm) tb4 02/17 23:00 Pain Scale: Adult tb4 23:23 Pain Scale: Adult tb4 02/18 00:57 Pain Scale: Adult bm8 [place] Coma Score: 00:57 Eye Response: spontaneous(4). Motor Response: obeys commands(6). Verbal Response: bm8 oriented(5). Total: 15. 19:08 Eye Response: spontaneous(4). Motor Response: obeys commands(6). Verbal Response: sp4 oriented(5). Total: 15. MDM: 01:38 ED course: EXAM: CTAbdomen and Pelvis Without Intravenous Contrast CLINICAL HISTORY: sp4 The patient is 44 years old and is Female; ABD PAIN TECHNIQUE: Axial computed tomography images of the abdomen and pelvis without intravenous contrast. Sagittal and coronal reformatted images were created and reviewed. This CT exam was performed using one or more of the following dose reduction techniques: automated exposure control, adjustment of the mA and/or kV according to patient size, and/or use of iterative reconstruction technique. COMPARISON: No relevant prior studies available. FINDINGS: LUNG BASES: Unremarkable. No mass. No consolidation. ABDOMEN: LIVER: Homogeneous without focal mass. GALLBLADDER AND BILE DUCTS: Surgical clips are present in the right upper quadrant, consistent with previous cholecystectomy. PANCREAS: Unremarkable. No ductal dilation. SPLEEN: Unremarkable. ADRENALS: Unremarkable. No mass. KIDNEYS AND URETERS: Right intrarenal calcifications are present. There is no hydronephrosis or hydroureter of either kidney. There is no perinephric or periureteral stranding. STOMACH AND BOWEL: The stomach is distended with food contents. The small bowel is normal in caliber. Stool is present throughout the colon. There is no mucosal thickening or evidence of obstruction. PELVIS: APPENDIX: The appendix is normal in caliber without surrounding inflammation. BLADDER: Unremarkable. No stones. REPRODUCTIVE: The patient is status post hysterectomy. ABDOMEN and PELVIS: INTRAPERITONEAL SPACE: Unremarkable. No free air. No significant fluid collection. BONES/JOINTS: No acute fracture. SOFT TISSUES: The soft tissues are normal. VASCULATURE: Unremarkable. No abdominal aortic aneurysm. LYMPH NODES: Unremarkable. No enlarged lymph nodes. IMPRESSION: Right nephrolithiasis without obstruction. Electronically signed by: Elodia Villavicencio MD 02/18/2025 12:23 AM. 01:39 Medical Screening Exam initiated sp 01:40 Differential diagnosis: Nonspecific abd pain, gastritis, viral gastroenteritis, sp4 gastroenteritis. Data reviewed: vital signs, nurses notes, lab test result(s), radiologic studies, CT scan. 19:10 Consideration of Admission/Observation Escalation of care including sp4 admission/observation considered. 02/17 22:49 Order name: UA Rfx Carlos Cult if indicated sp4 02/17 22:50 Order name: Test, Urine; Complete Time: 01:21 sp4 02/17 23:02 Order name: CBC with Diff; Complete Time: 01:21 sp4 02/17 23:02 Order name: CMP; Complete Time: 01:21 sp4 02/17 23:02 Order name: Lipase; Complete Time: 01:21 4 02/17 23:35 Order name: Abdomen EDMS 02/17 23:02 Order name: IV Saline Lock; Complete Time: 23:18 sp4 02/17 23:02 Order name: Labs collected and sent; Complete Time: 23:18 sp4 Administered Medications: 02/17 23:18 Drug: Droperidol IVP 2.5 mg IVP once Route: IVP; Site: left hand; kd3 02/18 00:58 Follow up: Response: No adverse reaction 8 02/17 23:18 Drug: NS 0.9% IV 1000 ml IV at 1 bolus Per protocol; to be given as a bolus over 60 kd3 minutes Route: IV; Rate: 1 bolus; Site: left hand; 02/18 00:57 Follow up: Response: No adverse reaction; IV Status: Completed infusion [facility] 02/17 23:19 Drug: Ativan IVP 1 mg IVP once Route: IVP; Site: left hand; [facility] 02/18 00:58 Follow up: Response: No adverse reaction 8 02/17 23:19 Drug: Dicyclomine IM 20 mg IM once Route: IM; Site: left gluteus; [facility] 02/18 00:58 Follow up: Response: No adverse reaction 8 02/17 23:19 Drug: metoCLOPramide IVP 10 mg IVP once; over 1 to 2 minutes Route: IVP; Site: left kd3 hand; 02/18 00:58 Follow up: Response: No adverse reaction bm8 Disposition: 19:10 Chart complete. sp4 Disposition Summary: 02/18/25 01:39 Discharge Ordered Notes: Location: Home sp4 Problem: new sp4 Symptoms: have improved sp4 Condition: Stable sp4 Diagnosis - Anxiety disorder, unspecified sp4 - Acute anxiety attack, acute diffuse abdominal pain sp4 Followup: sp4 - With: Private Physician - When: 7 - 10 days - Reason: Recheck today's complaints Discharge Instructions: - Managing Anxiety, Adult sp4 - Discharge Summary Sheet bm8 Forms: - Patient Portal Instructions sp4 Prescriptions: - Ativan 1 mg Oral tablet - take 1 tablet ORAL route once daily As needed PRN anxiety; 12 tablet; Refills: sp4 0, Product Selection Permitted Signatures: Dispatcher [facility] Christi Feldman RN RN kd3 Deni Kirk MD MD sp4 Carlie Cain RN RN tb4 Horacio Gonzalez RN bm8 Corrections: (The following items were deleted from the chart) 02/17 23:02 23:02 Abdomen Pelvis W [id number] ordered. EDMS EDMS 23:11 23:08 PMHx: Atrial fibrillation; tb4 tb4 23:11 23:08 PMHx: Seizure; tb4 tb4 23:11 23:08 PMHx: COPD; tb4 tb4 23:11 23:08 PMHx: Anxiety; tb4 tb4 23:11 23:08 PMHx: Bipolar disorder; tb4 tb4 23:11 23:08 PMHx: CVA; tb4 tb4 : PSHx: pacemaker; tb4 tb4 PSHx: hysterectomy; tb4 tb4
[2025-02-18 02:31] VITALS: TEMP 98.2
[2025-02-18 02:41] VITALS: BP 93/59; O2SAT 98
== END 2025-02-18 02:02 | disposition home or self-care (01) ==
LOC: ER 22:35
DX: F41.0 Panic disorder [episodic paroxysmal anxiety] (principal); R10.9 Unspecified abdominal pain; Z72.0 Tobacco use
CPT/HCPCS: 96361; 85025; 81001; 36415; 81025; 83690; 80053; 74176; 96375; 96372; 96374; 99284; J2765; J0500; J1790; J7030

== ENCOUNTER 2025-05-17 22:30 | Emergency (ER) | payer MEDICAID ==
[2025-05-17 23:46] LABS: PT Prothrombin Time 15.5 SECONDS (10-13.0); Protime INR 1.38
[2025-05-17 23:51] LABS: Absolute Lymphocytes (CBC) 2.0 K/uL (0.7-4.9); Hematocrit 34.2 % (36.0-45.0); Hemoglobin 11.8 g/dL (12.0-15.0); MCH 28.3 pg (27.0-35.0); MCHC 34.4 g/dL (32.0-36.0); MCV 82.2 fL (80-100); MPV 9.3 fL (7.6-11.3); Nucleated RBC Absolute Count 0.0 (0-0); Nucleated Red Blood Cells % 0.9 % (0-0); RBC Red Blood Cell Count 4.17 M/uL (3.86-4.86); White Blood Count 4.30 thou/uL (4.3-10.9)
--- NOTE | 2025-05-17 23:53 | ER ---
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 Patient has a new stutter that started at PM this evening. EMS stated family states she has a HX of seizures and is currently on Keppra which she took today. 22:35 Coronavirus screen: Client denies travel out of the [place] in the last 14 days. Ebola sd4 Screen: No symptoms or risks identified at this time. Initial Sepsis Screen: Does the patient meet any 2 criteria? No. Patient's initial sepsis screen is negative. Does the patient have a suspected source of infection? No. Patient's initial sepsis screen is negative. Risk Assessment: Do you want to hurt yourself or someone else? Patient reports no desire to harm self or others. Onset of symptoms was May 17, 2025 at 21:00. 22:35 Method Of Arrival: EMS sd4 22:35 Acuity: LYUBOV 3 sd4 22:35 Chief complaint: Seizures. sd4 Triage Assessment: 22:35 General: Appears in no apparent distress. Behavior is cooperative, drowsy, Smells of sd4 Reports. Pain: Denies pain. EENT: No deficits noted. No signs and/or symptoms were reported regarding the EENT system. Neuro: Level of Consciousness is alert, obeys commands, lethargic, Oriented to person, place, time, situation, Reports Seizure activity Reported by EMS. Cardiovascular: Reports Patient's skin is warm and dry. Pulses are all present. Parent/caregiver reports patient has had syncope. Respiratory: No deficits noted. Airway is patent Trachea midline Respiratory effort is even, unlabored, Respiratory pattern is regular, symmetrical. GI: No deficits noted. No signs and/or symptoms were reported involving the gastrointestinal system. : No deficits noted. No signs and/or symptoms were reported regarding the genitourinary system. Derm: No deficits noted. No signs and/or symptoms reported regarding the dermatologic system. 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: 22:35 unknown sd4 Historical: - Allergies: 23:35 Adhesives; vc1 23:35 Aspirin; vc1 23:35 Bactrim; vc1 23:35 Benadryl; vc1 23:35 cefixime; vc1 23:35 Cephalexin; vc1 23:35 Cipro IV; vc1 23:35 Clindamycin; vc1 23:35 coconut oil; vc1 23:35 Detrol; vc1 23:35 Diltiazem; vc1 23:35 Doxycycline; vc1 23:35 FISH PRODUCT DERIVATIVES; vc1 23:35 GABAPENTIN; vc1 23:35 HYDROCODONE; vc1 23:35 Iodine; vc1 23:35 ivabradine; vc1 23:35 Levofloxacin; vc1 23:35 lithium; vc1 23:35 Metoprolol Tartrate; vc1 23:35 montelukast; vc1 23:35 Morphine; vc1 23:35 PENICILLINS; vc1 23:35 Seroquel; vc1 23:35 Sulfa (Sulfonamide Antibiotics); vc1 23:35 Suprax; vc1 23:35 tolterodine; vc1 23:35 tramadol; vc1 - PMHx: 23:35 Hypercholesterolemia; Hypothyroidism; vc1 - Immunization history:: Adult Immunizations unknown. - Infectious Disease History:: unknown. - Family history:: not pertinent. - Social history:: Smoking status: unknown. Screenin:35 [facility] ED Fall Risk Assessment (Adult) History of falling in the last 3 months, sd4 including since admission Yes- fall prone (multiple falls) (3 pts) Confusion or Disorientation No (0 pts) Intoxicated or Sedated No (0 pts) Impaired Gait Yes (1 pt) Mobility Assist Device Used No (0 pt) Altered Elimination No (0 pt) Score/Fall Risk Level 3 or more points = High Risk Oriented to surroundings, Maintained a safe environment, Educated pt \T\ family on fall prevention, incl call for assistance when getting out of bed, Hourly rounding (assess needs \T\ fall precautionary measures) done. Abuse screen: Denies threats or abuse. Denies injuries from another. Nutritional screening: No deficits noted. Tuberculosis screening: No symptoms or risk factors identified. Assessment: 22:35 Reassessment: Patient is alert, oriented x 3, equal unlabored respirations, skin sd4 warm/dry/pink. Patient arrived via EMS with complaints of having seizures. Vital Signs: 22:30 BP 112 / 77; Pulse 72; Resp 18; Pulse Ox 96% on R/A; sd4 22:35 BP 129 / 69; Pulse 75; Resp 18; Temp 98.1; Pulse Ox 98% on R/A; sd4 23:00 BP 129 / 69; Pulse 75; Resp 18; Temp 98.1; Pulse Ox 98% on R/A; sd4 24 00:00 BP 113 / 75; Pulse 71; Resp 18; Pulse Ox 99% on R/A; sd4 NIH Stroke Scale Scores: 05/17 23:00 NIHSS Score: 8 sd4 23:39 NIHSS Score: 10 [facility] ED Course: 22:33 Patient arrived in ED. rk3 22:34 Caio Aceves MD is Attending Physician. [facility] 22:35 No provider procedures requiring assistance completed. sd4 22:35 Arm band placed on right wrist. sd4 22:35 Patient has correct armband on for positive identification. Bed in low position. Call sd4 light in reach. Side rails up X2. Provided Education on: Seizures . 22:56 EKG done, by ED staff, reviewed by Caio Aceves MD. rk3 23:01 Argenis More, RN is Primary Nurse. sd4 23:15 XRAY Chest (1 view) In Process Unspecified. EDMS 23:31 Accessed peripheral vein via ultrasound, utilizing dynamic ultrasound technique using vc1 per hospital protocol. Clean \T\ dry. Dressing intact. Dressing loose. Good blood return. No blood return. Flushes easily. 20 G right upper arm. 23:46 CT Stroke Brain w/o Contrast In Process Unspecified. EDMS 05/18 00:40 Patient transferred, IV remains in place. sd4 01:33 Triage completed. sd4 02:23 initiated transfer with [facility]. spoke with bernabe, patient was accepted to [facility]. vk to 11B 1124 \T\2343, to Dr. Darby, \T\2343 , Life flight accepted for transport. Administered Medications: 00:15 Drug: Famotidine IVP 20 mg IVP once; dilute with 10 mL 0.9% NaCl; give over 2 minutes sd4 Route: IVP; Site: right antecubital; 00:15 Drug: foLIC Acid IVPB 1 mg IVPB once Route: IVPB; Site: right antecubital; sd4 00:45 Follow up: IV Status: Infusion continued sd4 00:15 Drug: Ativan IVP 1 mg IVP once Route: IVP; Site: right antecubital; sd4 00:40 Follow up: Response: No adverse reaction sd4 00:45 Follow up: Response: No adverse reaction sd4 00:16 Drug: NS 0.9% IV 1000 ml IV at 1 bolus Per protocol; to be given as a bolus over 60 sd4 minutes Route: IV; Rate: 1 bolus; Site: right antecubital; 00:45 Follow up: Response: No adverse reaction; IV Status: IV converted to saline lock sd4 Medication: 05/17 22:35 VIS not applicable for this client. sd4 Outcome: 23:53 ER care complete, transfer ordered by MD. posey 05/18 00:40 Transferred by helicopter to [facility], sd4 Condition: stable Discharge instructions given to patient, family, EMS, Instructed on the need for transfer, Demonstrated understanding of instructions, 00:40 Patient left the ED. vc1 NIH Stroke Scale - NIH Stroke Score Date: 05/17/2025 Time: 23:00 Total Score = 8 10. Dysarthria (speech clarity - read or repeat words) - 1(Mild to Moderate) 11. Extinction and Inattention (visual/tactile/auditory/spatial/personal) - 0(No abnormality) 1a. Level of Consciousness (LOC) - 0(Alert) 1b. Level of Consciousness (LOC) (Month \T\ Age) - 0(Both) 1c. LOC Commands (Open \T\ Closes Eyes/Longitudinal Float Operator) - 0(Both) 2. Best Gaze (Lateral Gaze Paresis) - 0(Normal) 3. Visual Field Loss - 0(No visual loss) 4. Facial Palsy - 0(Normal) 5a. Left Arm: Motor (10-second hold) - 0(No drift) 5b. Right Arm: Motor (10-second hold) - 3(No effort against gravity) 6a. Left Leg: Motor (5-second hold - always test supine) - 0(No drift) 6b. Right Leg: Motor (5-second hold - always test supine) - 3(No effort against gravity) 7. Limb Ataxia (finger/nose \T\ heel/briggs - test with eyes open) - 0(Absent) 8. Sensory Loss (pinprick arms/legs/face) - 0(Normal) 9. Best Language: Aphasia (description/naming/reading) - 1(Mild to moderate aphasia) Initials: sd4 NIH Stroke Scale - NIH Stroke Score Date: 05/17/2025 Time: 23:39 Total Score = 10 10. Dysarthria (speech clarity - read or repeat words) - 1(Mild to Moderate) 11. Extinction and Inattention (visual/tactile/auditory/spatial/personal) - 0(No abnormality) 1a. Level of Consciousness (LOC) - 1(Not Alert) 1b. Level of Consciousness (LOC) (Month \T\ Age) - 1(One) 1c. LOC Commands (Open \T\ Closes Eyes/Longitudinal Float Operator) - 0(Both) 2. Best Gaze (Lateral Gaze Paresis) - 0(Normal) 3. Visual Field Loss - 0(No visual loss) 4. Facial Palsy - 0(Normal) 5a. Left Arm: Motor (10-second hold) - 0(No drift) 5b. Right Arm: Motor (10-second hold) - 3(No effort against gravity) 6a. Left Leg: Motor (5-second hold - always test supine) - 0(No drift) 6b. Right Leg: Motor (5-second hold - always test supine) - 3(No effort against gravity) 7. Limb Ataxia (finger/nose \T\ heel/briggs - test with eyes open) - 0(Absent) 8. Sensory Loss (pinprick arms/legs/face) - 0(Normal) 9. Best Language: Aphasia (description/naming/reading) - 1(Mild to moderate aphasia) Initials: taty Addendum: 05/17/2025 23:40 Addendum: Other [place] [facility] evaluation failed at 2340 on 05/17/2025 due to NPO kb3 ordered by . Signatures: Dispatcher [employer] Caio Marques MD MD cha Calcote, Vanessa RN RN vc1 Rae Loredo RN RN kb3 Sis Hong Rozana rk3 Argenis More RN RN sd4 Corrections: (The following items were deleted from the chart) 05/18 03:07 02:14 Patient left the ED. sd4 vc1
--- NOTE | 2025-05-17 23:53 | EDPHYS ---
Physician Documentation [facility] Name: Jenni Draper Age: 44 yrs Sex: Female : 1980 Arrival Date: 05/17/2025 Time: 22:30 Bed 19 Private MD: WILLY Physician Caio Aceves HPI: 05/17 23:37 This 44 yrs old Female presents to ER via Unassigned with complaints of taty syncope, right side weakness, seizure, aphasia. 23:37 The patient's problem is reported as altered mental status, confused, paresthesias, in taty right upper extremity, in right lower extremity, an apparent seizure, with the patient having a single isolated episode, Episodes lasted less that one minute. Motor activity is described as generalized, Brief loss of consciousness. Patient was not incontinent of bowel or bladder. Patient was apneic. Loss of pulse was noted. dysphasia, incoherent speech. Onset: The symptoms/episode began/occurred at 21:30. Duration: The episode is continuous. Context: the episode(s) was witnessed, by a bystander, by a daycare worker, by family, by the group home staff, by a significant other. The symptoms are alleviated by nothing. The symptoms are aggravated by nothing. The patient presents with confusion, decreased mental status. Possible causes: CVA or TIA, drug use, alcohol, head injury, low blood sugar, seizure, sepsis. Associated signs and symptoms: The patient has no apparent associated signs or symptoms. 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 sd4 Historical: - Allergies: 23:35 Adhesives; vc1 23:35 Aspirin; vc1 23:35 Bactrim; vc1 23:35 Benadryl; vc1 23:35 cefixime; vc1 23:35 Cephalexin; vc1 23:35 Cipro IV; vc1 23:35 Clindamycin; vc1 23:35 coconut oil; vc1 23:35 Detrol; vc1 23:35 Diltiazem; vc1 23:35 Doxycycline; vc1 23:35 FISH PRODUCT DERIVATIVES; vc1 23:35 GABAPENTIN; vc1 23:35 HYDROCODONE; vc1 23:35 Iodine; vc1 23:35 ivabradine; vc1 23:35 Levofloxacin; vc1 23:35 lithium; vc1 23:35 Metoprolol Tartrate; vc1 23:35 montelukast; vc1 23:35 Morphine; vc1 23:35 PENICILLINS; vc1 23:35 Seroquel; vc1 23:35 Sulfa (Sulfonamide Antibiotics); vc1 23:35 Suprax; vc1 23:35 tolterodine; vc1 23:35 tramadol; vc1 - PMHx: 23:35 Hypercholesterolemia; Hypothyroidism; vc1 - Immunization history:: Adult Immunizations unknown. - Infectious Disease History:: unknown. - Family history:: not pertinent. - Social history:: Smoking status: unknown. ROS: 23:39 Constitutional: Negative for fever, chills, and weight loss, Eyes: Negative for injury, taty pain, redness, and discharge, ENT: Negative for injury, pain, and discharge, Neck: Negative for injury, pain, and swelling, Cardiovascular: Negative for chest pain, palpitations, and edema, Respiratory: Negative for shortness of breath, cough, wheezing, and pleuritic chest pain, Abdomen/GI: Negative for abdominal pain, nausea, vomiting, diarrhea, and constipation, Back: Negative for injury and pain, : Negative for injury, bleeding, discharge, and swelling, MS/Extremity: Negative for injury and deformity, Skin: Negative for injury, rash, and discoloration, Psych: Negative for depression, anxiety, suicide ideation, homicidal ideation, and hallucinations, Allergy/Immunology: Negative for hives, rash, and allergies, Endocrine: Negative for neck swelling, polydipsia, polyuria, polyphagia, and marked weight changes, 23:39 Neuro: Positive for altered mental status, dizziness, seizure activity, syncope, weakness, of the right arm and right leg, Exam: 23:39 Radiologist reports: see report taty 23:39 Constitutional: The patient appears well developed, well hydrated, unkempt, 23:39 ECG was reviewed by the Attending Physician. Vital Signs: 22:30 BP 112 / 77; Pulse 72; Resp 18; Pulse Ox 96% on R/A; sd4 22:35 BP 129 / 69; Pulse 75; Resp 18; Temp 98.1; Pulse Ox 98% on R/A; sd4 23:00 BP 129 / 69; Pulse 75; Resp 18; Temp 98.1; Pulse Ox 98% on R/A; sd4 05/18 00:00 BP 113 / 75; Pulse 71; Resp 18; Pulse Ox 99% on R/A; sd4 NIH Stroke Scale Scores: 05/17 23:00 NIHSS Score: 8 sd4 23:39 NIHSS Score: 10 taty MDM: 22:35 Medical Screening Exam initiated taty 23:46 Differential diagnosis: CVA, TIA, Dementia, paralysis, metabolic disorder, drug taty effects. TNKase (Tenecteplase) Screening: Indications: Definite evidence of stroke, ischemic, embolic, or hypertensive: No. Treatment will start within 4.5 hours onset of symptoms: Yes. No evidence of intracranial hemorrhage or CT of head and no evidence of peripheral hemorrhage or recent CVA: Yes. Consent for thrombolytic therapy: No. Contraindications: Is the patient on Aspirin, Heparin, or Warfarin: Yes. Rapidly improving condition or minor deficit: Yes. Seizure at onset of stroke or other uncontrolled chronic seizure disorder:. Data reviewed: vital signs, nurses notes, lab test result(s), EKG, radiologic studies, CT scan, plain films. Consideration of Admission/Observation Escalation of care including admission/observation considered. I considered the following discharge prescriptions or medication management in the emergency department Medications were administered in the Emergency Department. See MAR. Independent interpretation of the following test(s) in the Emergency Department EKG: See my EKG interpretation above. Test considered but Not performed: MRI: no mri brain. Historians other than the Patient: EMS: ems well informed. Spouse/Significant Other: well informed. Care significantly affected by the following chronic conditions: Diabetes, Hypertension, Congestive Heart Failure, Obesity, eliquis, seizure do. Counseling: I had a detailed discussion with the patient and/or guardian regarding the historical points, exam findings, and any diagnostic results supporting the discharge/admit diagnosis, lab results, radiology results, the need to transfer to another facility, for higher level of care, [facility] does not immediately have the required specialist. ED course: all of patients care is at [facility], family want [facility] only. 05/17 22:37 Order name: Basic Metabolic Panel taty 05/17 22:37 Order name: CBC with Diff taty 05/17 22:37 Order name: LFT's taty 05/17 22:37 Order name: Magnesium taty 05/17 22:37 Order name: NT PRO-BNP [facility] 05/17 22:37 Order name: PT-INR [facility] 05/17 22:37 Order name: Troponin HS [facility] 05/17 22:37 Order name: Lipase [facility] 05/17 22:37 Order name: Digoxin [facility] 05/18 00:52 Order name: CBC Smear Scan EDMS 05/17 22:37 Order name: XRAY Chest (1 view) [facility] 05/17 23:19 Order name: CT Stroke Brain w/o Contrast [facility] 05/17 22:37 Order name: Cardiac monitoring; Complete Time: 22:56 [facility] 05/17 22:37 Order name: EKG - Nurse/Tech; Complete Time: 22:56 [facility] 05/17 22:37 Order name: IV Saline Lock [facility] 05/17 22:37 Order name: Labs collected and sent [facility] 05/17 22:37 Order name: O2 Per Protocol [facility] 05/17 22:37 Order name: O2 Sat Monitoring [facility] EC:39 Rate is 78 beats/min. Rhythm is regular. QRS [place] is Normal. [place] interval is normal. QRS taty interval is normal. QT interval is normal. No Q waves. T waves are Normal. No ST changes noted. Clinical impression: Normal ECG and No evidence of ischemia. Interpreted by me. Reviewed by me. Administered Medications: 05/18 00:15 Drug: Famotidine IVP 20 mg IVP once; dilute with 10 mL 0.9% NaCl; give over 2 minutes sd4 Route: IVP; Site: right antecubital; 00:15 Drug: foLIC Acid IVPB 1 mg IVPB once Route: IVPB; Site: right antecubital; sd4 00:45 Follow up: IV Status: Infusion continued sd4 00:15 Drug: Ativan IVP 1 mg IVP once Route: IVP; Site: right antecubital; sd4 00:40 Follow up: Response: No adverse reaction sd4 00:45 Follow up: Response: No adverse reaction sd4 00:16 Drug: NS 0.9% IV 1000 ml IV at 1 bolus Per protocol; to be given as a bolus over 60 sd4 minutes Route: IV; Rate: 1 bolus; Site: right antecubital; 00:45 Follow up: Response: No adverse reaction; IV Status: IV converted to saline lock sd4 Disposition: 00:52 Critical Care:. 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 Total time: 55 minutes NIH Stroke Scale - NIH Stroke Score Date: 05/17/2025 Time: 23:00 Total Score = 8 10. Dysarthria (speech clarity - read or repeat words) - 1(Mild to Moderate) 11. Extinction and Inattention (visual/tactile/auditory/spatial/personal) - 0(No abnormality) 1a. Level of Consciousness (LOC) - 0(Alert) 1b. Level of Consciousness (LOC) (Month \T\ Age) - 0(Both) 1c. LOC Commands (Open \T\ Closes Eyes/Dental Technician Metal) - 0(Both) 2. Best Gaze (Lateral Gaze Paresis) - 0(Normal) 3. Visual Field Loss - 0(No visual loss) 4. Facial Palsy - 0(Normal) 5a. Left Arm: Motor (10-second hold) - 0(No drift) 5b. Right Arm: Motor (10-second hold) - 3(No effort against gravity) 6a. Left Leg: Motor (5-second hold - always test supine) - 0(No drift) 6b. Right Leg: Motor (5-second hold - always test supine) - 3(No effort against gravity) 7. Limb Ataxia (finger/nose \T\ heel/briggs - test with eyes open) - 0(Absent) 8. Sensory Loss (pinprick arms/legs/face) - 0(Normal) 9. Best Language: Aphasia (description/naming/reading) - 1(Mild to moderate aphasia) Initials: sd4 NIH Stroke Scale - NIH Stroke Score Date: 05/17/2025 Time: 23:39 Total Score = 10 10. Dysarthria (speech clarity - read or repeat words) - 1(Mild to Moderate) 11. Extinction and Inattention (visual/tactile/auditory/spatial/personal) - 0(No abnormality) 1a. Level of Consciousness (LOC) - 1(Not Alert) 1b. Level of Consciousness (LOC) (Month \T\ Age) - 1(One) 1c. LOC Commands (Open \T\ Closes Eyes/Dental Technician Metal) - 0(Both) 2. Best Gaze (Lateral Gaze Paresis) - 0(Normal) 3. Visual Field Loss - 0(No visual loss) 4. Facial Palsy - 0(Normal) 5a. Left Arm: Motor (10-second hold) - 0(No drift) 5b. Right Arm: Motor (10-second hold) - 3(No effort against gravity) 6a. Left Leg: Motor (5-second hold - always test supine) - 0(No drift) 6b. Right Leg: Motor (5-second hold - always test supine) - 3(No effort against gravity) 7. Limb Ataxia (finger/nose \T\ heel/briggs - test with eyes open) - 0(Absent) 8. Sensory Loss (pinprick arms/legs/face) - 0(Normal) 9. Best Language: Aphasia (description/naming/reading) - 1(Mild to moderate aphasia) Initials: taty Signatures: Dispatcher [employer] EDCaio Zhong MD MD cha Calcote, Vanessa, RN RN vc1 Argenis More RN RN sd4 Corrections: (The following items were deleted from the chart) 05/17 22:37 22:37 BASIC METABOLIC PANEL+C.LAB.BRZ ordered. EDMS EDMS 22:37 22:37 CBC+H.LAB.BRZ ordered. EDMS EDMS 22:37 22:37 HEPATIC FUNCTION+C.LAB.BRZ ordered. EDMS EDMS 22:37 22:37 MAGNESIUM+C.LAB.BRZ ordered. EDMS EDMS 22:37 22:37 PROBNP+C.LAB.BRZ ordered. EDMS EDMS 22:37 22:37 PROTIME (+INR)+COAG.LAB.BRZ ordered. EDMS EDMS 22:37 22:37 Troponin High Sensitivity+C.LAB.BRZ ordered. EDMS EDMS 22:37 22:37 LIPASE+C.LAB.BRZ ordered. EDMS EDMS 22:37 22:37 UA Rfx Carlos Cult if indicated+U.LAB.BRZ ordered. EDMS EDMS 22:38 22:37 URINE DRUG SCREEN+UC.LAB.BRZ ordered. EDMS EDMS 22:38 22:37 DIGOXIN+C.LAB.BRZ ordered. EDMS EDMS 22:38 22:38 Chest Single View+RAD.RAD.BRZ ordered. EDMS EDMS 22:38 22:38 Head C Spine Cap Wo Con+CT.RAD.BRZ ordered. EDMS EDMS 23:20 23:20 Neck Angio+CT.RAD.BRZ ordered. EDMS EDMS 23:24 23:03 Head C Spine Mpr Wo Con ordered. EDMS EDMS 23:24 23:04 Chest Abd Pelvis Wo Con ordered. EDMS EDMS 23:46 23:20 Head Angio+CT.RAD.BRZ ordered. EDMS EDMS 05/18 02:14 05/17 23:53 to [facility] neuro unit taty sd4
[2025-05-18] MEDS ORDERED: LORazepam 2 MG/ML VIAL ONE (00:03)
[2025-05-18] MEDS ORDERED: FOLIC ACID 5 MG/ML VIAL ONE (00:05)
[2025-05-18] MEDS ORDERED: FAMOTIDINE 20 MG/2 ML VIAL IV ONE (00:05)
[2025-05-18] MEDS ORDERED: NA CHLORIDE 0.9% 1,000 ML ONE (00:05)
[2025-05-18 00:17] LABS: ALT/SGPT 39 U/L (13-56); AST/SGOT 29 U/L (15-37); Albumin 3.8 g/dL (3.4-5.0); Albumin/Globulin Ratio 1.2 (1.1-1.8); Alkaline Phosphatase 107 U/L (45-117); Anion Gap 7.4 mEq/L (5.0-15.0); BUN Blood Urea Nitrogen 11 mg/dL (7-18); Globulin 3.2 g/dL (2.3-3.5); Glucose Level 108 mg/dL (74-106); Lipase 29 U/L (13-75); Magnesium 2.3 mg/dL (1.6-2.4); NT PRO-BNP 98 pg/mL (<125); Potassium 3.4 mEq/L (3.5-5.1); Troponin High Sensitivity 3.4 pg/mL (<58.9)
--- NOTE | 2025-05-18 00:29 | RAD REPORT ---
EXAM DESCRIPTION: Chest Single View CLINICAL HISTORY: 44 years Female, CHEST PAIN TECHNIQUE: 1 view (Single frontal view of the chest) COMPARISON: None. FINDINGS: Mild rightward patient rotation. LINES AND TUBES: Right-sided pacemaker. CARDIOVASCULAR STRUCTURES: Normal heart size. No pulmonary venous congestion. LUNGS: No confluent areas of acute consolidation. PLEURA: No layering pleural effusions. No pneumothorax. BONES: No acute osseous abnormality of the thorax. IMPRESSION: 1. No acute cardiopulmonary disease. Electronically signed by: Win Hanley MD 05/18/2025 12:06 AM CDT RP 1P Due to temporary technical issues with the PACS/[employer]and[employer] reporting system, reports are being gopal d by the in-house radiologist without review as a courtesy to ensure prompt reporting the interpreting radiologist is fully responsible for the content of the report. Transcribed Date/Time: 05/18/2025 12:29 AM
[2025-05-18 00:30] LABS: Bilirubin Indirect, Calculated 0.0 mg/dL (0.2-0.8)
--- NOTE | 2025-05-18 00:33 | RAD REPORT ---
ADDENDUM #1 These findings were communicated to Dr. Caio Aceves on 05/18/2025 12:00 AM ([facility]). Electronically signed by: Win Hanley MD 05/18/2025 01:26 AM [facility] 1P End of Addendum EXAM DESCRIPTION: Ct Stroke Brain Wo Cont CLINICAL HISTORY: 44 years Female, STROKE ALERT TECHNIQUE: Helical CT axial images are obtained from the base of skull through the vertex without IV contrast. Multiplanar reconstruction. This exam was performed according to our departmental dose-optimization program, which includes automated exposure control, adjustment of the mA and/or kV according to patient size and/or use of iterative reconstruction technique. COMPARISON: None. FINDINGS: BRAIN: There is apparent mild diffuse decreased attenuation throughout the right cerebral hemisphere which in part may be secondary to artifact due to patient positioning versus an acute infarct. No remote cortically based infarct. No parenchymal hemorrhage, intra-axial mass, mass effect, or midline shift. No abnormal extra-axial fluid collections. VENTRICLES: Ventricles are normal in size and configuration. No hydrocephalus. CALVARIUM: Bone windows show no skull fracture or calvarial lesions. PARANASAL SINUSES AND MASTOIDS: Clear paranasal sinuses. Mastoid air cells are clear. IMPRESSION: 1. Apparent mild diffuse decreased attenuation throughout the right cerebral hemisphere which may r epresent an acute infarct versus artifactual due to patient positioning. 2. No parenchymal hemorrhage. 3. Correlate clinically to determine whether repeat CT brain imaging versus CTA head and neck is wa rranted. Electronically signed by: Win Hanley MD 05/18/2025 12:05 AM T 1P Due to temporary technical issues with the [employer] reporting system, reports are being gopal d by the in-house radiologist without review as a courtesy to ensure prompt reporting the interpreting radiologist is fully responsible for the content of the report. Transcribed Date/Time: 05/18/2025 5:37 AM
[2025-05-18 00:50] LABS: Blood Morphology Comment NOT SEEN (NOT SEEN); White Blood Cell Scan OK (OK)
[2025-05-18 02:20] VITALS: TEMP 98.1
[2025-05-18 02:23] VITALS: BP 113/75; O2SAT 99
== END 2025-05-18 02:14 | disposition short-term general hospital (02) ==
LOC: ER 22:30
DX: I63.89 Other cerebral infarction (principal); G81.91 Hemiplegia, unspecified affecting right dominant side; G40.89 Other seizures; Z79.01 Long term (current) use of anticoagulants; R29.708 NIHSS score 8
CPT/HCPCS: 96365; 93005; 85025; 80048; 36415; 83735; 85610; 80162; 80076; 84484; 83690; 83880; 70450; 71045; 96375; 99285; J7030